=== PATIENT | female | born 1945 | race Caucasian/White ===

== ENCOUNTER 2017-11-26 14:00 | Outpatient (RCR) | payer MEDICARE, SELFPAY ==
--- NOTE | 2017-10-24 09:35 | HP.OTEVAL ---
Patient's Visit Information MICHAEL HUFF is a 71 year old F, referred to Occupational Therapy by Severiano Kumar DR.[facility], with a diagnosis of right hand swelling right hand pain. Date of Evaluation: 10/24/17 Occupational Therapist: LEATHA Valadez/Jacinta, CHT - Subjective Subjective: Pt states about three weeks ago pt fell out of her untapt car. She presents with a right swelling and pain in her right dom. hand. Pt reports she is unable to perform dressing and bathing tasks. Pt went to the doctor yesterday 10-23-16 because she felt it would get better- has dx with right hand swelling and right hand pain. order indicated eval-tx and motion program, edema control, modalities as indicateed. strengthening when tolerated. pt states she has been using ice two times a day. - Pain right hand 8 Pain Intensity Range: 8, 9 - ROM Shoulder: Right/Left WFL Elbow: Right/Left WFL Forearm: Right/left WNL Wrist: Right 20/30 left 35/60 - Strength Locomotive Engineer Electric: right NT left 25# - Edema Wrist: right 19cm left 17cm Other: MCP right 20.5cm left 19cm - Sensation Sensation Comments: pt reports pins and needle sensation - In-Hand Manipulation Finger to Palm Translation: Unable - Right, Normal - Left Palm to Finger Translation: Unable - Right, Normal - Left Shift: Unable - Right, Normal - Left Rotation: Unable - Right, Normal - Left - Hand/Wrist Evaluation Total Score of Pain & Functional Sections: 88 - Goals Goal:: pt will demo a 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 Goal:: pt will report a reduction in pins and needle sensation by D/c - Rehabilitation General Assessment: pt demo need for skilled OT service to decrease edema and pain in right hand to return pt to PLOF with performance of BADLS and IADLS. Rehabilitation Potential: Good - Anticipated Interventions Anticipated Interventions: A/AAROM/PROM, Edema Control, Triggerpoint Release, Modalities, Joint Protection/Energy Conservation, Fine Motor Coord/Chadd - Visit Plan Frequency: 2-3x /Week Duration: 6 Weeks TEXT: Thank you for the opportunity to evaluate your patient. For Medicare and Medicare HMO plans, please review the plan of care and approve it. It will need to be FAXED BACK to us at [phone] for Medicare purposes. Please let me know if there are questions or concerns regarding this plan of care. Physician Signature: Date:
--- NOTE | 2017-11-26 14:41 | HP.OTDCSUM_ITS ---
HP - OT D/C Summary It has been my pleasure to treat MICHAEL HUFF under orders from Severiano Kumar DR[facility] for the diagnosis of right hand swelling right hand pain for a total of 4 visit(s). Please see the following information for a summary of their discharge status. - Overall Improvement % Improvement: 95 - Objective Objective/Function: right MCP flex 50. right PIP 75. right wrist 19.5cm. right MCP 20.0cm. pt demo with decrease in swelling and a increase in ROM - pt reports ind. with BADLS and IADLS - Goals Patient Goals: Regain Mobility, Regain Strength, Decrease Pain, Decrease Swelling/Stiffness, Improve Fine Motor Skills, Use Hand/Wrist/Arm Normally Again , Sleep Better, Decrease Tingling/Numbness Goal:: pt will demo a increase in right parking cashier to 20# or greater to return pt to PLOF with BADLS and IADLS Goal:: Pt will demo a increase in the ability to form a composite fist to retun to PLOF with bathing dressing and meal prep by d/c Goal:: pt will report pain no greater than 2/10 with use of right hand for BADLS and IADLS by D/C Goal:: Pt will demo the ability to write name legibly by d/c Goal:: pt will demo a decrease in right hand edema by 20% by D/C to return pt to PLOF with bathing, dressing and meal prep tasks. Goal:: pt will report a reduction in pins and needle sensation by D/c - Plan Plan: D/C - D/C Information Discharge Comments: pt was seen for 4 visits- pt was ed on edema control and AROM - today pt demo with a increase grasp ability and increase use of her right hand for daily occupations. pt report no pain and ind with bathing and dressing tasks. pt reports she has no difficutly getting in or out of the car. pt reports 95% improvement. pt has met functional goals in OT and is D/C at this time. If there are questions or concerns regarding this patient's occupational therapy , please fell free to call me at [phone]. Thank you for the referral of this patient. Sincerely, Sussy Burks, OTR/L, CHT
== END 2017-11-26 19:00 | disposition home or self-care (01) ==
LOC: OT 14:00
PROVIDERS: Family Provider Internal Medicine; PCP Internal Medicine; Visit Provider Orthopaedic Surgery
DX: M79.89 Other specified soft tissue disorders (principal); M79.641 Pain in right hand
CPT/HCPCS: 97035; 97110; 97140; 97166; 97530

== ENCOUNTER 2017-11-27 05:53 | Inpatient (IN) | payer MEDICARE, SELFPAY ==
[2017-11-27] VITALS (31 sets, daily range): BP systolic 101–187; BP diastolic 36–102; PULSE 73–162; RESP 12–30; TEMP 36.4–38.3; O2SAT 83–100; BMI 37.3; BMI 35.8; BMI 35.7
--- NOTE | 2017-11-27 06:08 | RAD_ITS ---
STUDY: X-RAY CHEST REASON FOR EXAM: Female, 72 years old. Shortness of breath and fever TECHNIQUE: Single AP portable view of the chest. COMPARISON: 07/24/2017 FINDINGS: There are superimposed monitor leads. There is increase of airspace disease in the left lung obscuring the mid and lower lung parenchyma, diaphragm and costophrenic angle with fluid tracking along the right lower to upper chest will periphery. There is improved aeration in the right lung since previous examination, hazy opacification in the left lung. There is no right pleural effusion Obscured heart, mediastinum and jose f. Normal visualized pulmonary arteries. Obscured aortic arch and descending thoracic aorta. Obscured thoracic spine. Normal visualized ribs, clavicles, and shoulders. There is no demonstrated abnormality of the visualized soft tissue structures of the upper abdomen. RAD/Chest 1 View (Portable) IMPRESSION: No other recurrent airspace disease in the left mid and lower lung parenchyma likely pneumonia, component of mild to moderate left pleural effusion. Although the heart is mostly obscured, heart appears to be borderline in size possibly mildly enlarged. Electronically Signed: Selina Pickard MD at 6:52 EST , Service support ,
--- NOTE | 2017-11-27 06:09 | EKG12_ITS ---
Test Reason : RVR, CP Blood Pressure : / mmHG Vent. Rate : 130 BPM Atrial Rate : 227 BPM P-R Int : 000 ms QRS Dur : 082 ms QT Int : 342 ms P-R-T Axes : 000 037 050 degrees QTc Int : 503 ms Atrial fibrillation Abnormal ECG When compared with ECG of 27-NOV-2017 05:49, MANUAL COMPARISON REQUIRED, DATA IS UNCONFIRMED Confirmed by RHIANNON MARKHAM ([id number]), subeditor HONORIO SHEFFIELD ([id number]) on 12/02/2017 1:56:29 PM Referred By: Severiano Kumar Confirmed By:RHIANNON MARKHAM
[2017-11-27] MEDS: Ipratropium/Albuterol Sulfate 3 ML AMPUL.NEB INHALATION ×2 (06:22→11:03)
[2017-11-27 06:34] LABS: Absolute Lymphocyte Count 0.75 X10^3/ul (0.83-4.51); Absolute Neutrophil Count 9.8 X10^3/uL (2.0-7.7); Basophil# 0.01 X10^3/uL; Basophil% 0.1 % (0-1); Eosinophil# 0.13 X10^3/uL; Eosinophils% 1.1 % (0-5); Hematocrit 27.2 % (37-47); Hemoglobin 8.2 g/dl (12.0-15.0); Lymphocyte # 0.75 X10^3/ul (4.0); Lymphocyte % 6.5 % (19-41); Mean Corp Hgb Conc 30.1 g/gl (32-36); Mean Corpuscular Hgb 29.4 pg (27.0-32.0); Mean Corpuscular Volume 97.5 fL (81-99); Mean Platelet Vol. 9.7 fl (6.2-12.0); Monocyte# 0.89 X10^3/uL; Monocyte% 7.7 % (0-10); Neutrophil % 84.3 % (47-70); Platelet Count 253 K/mm3 (150-450); RBC Distribution Width CV 15.3 % (11.6-14.6); RBC Distribution Width SD 51.8 fl (35.1-43.9); Red Blood Count 2.79 M/mm3 (4.2-5.4); White Blood Count 11.6 K/mm3 (4.4-11.0)
[2017-11-27] MEDS: Acetaminophen 325 MG Tablet 650 MG PO (06:34)
[2017-11-27 06:36] LABS: POSITIVE COUNT NO; POSITIVE DIFFERENTIAL NO; POSITIVE MORPHOLOGY NO
[2017-11-27 06:44] LABS: Mucous, Urine 0 SEEN /hpf (<or=2+); Red Blood Cells-Urine 0 SEEN /hpf (0-5)
[2017-11-27 06:46] LABS: Color, Urine Yellow (Yellow); Glucose, Dipstick Normal (Normal); Ketone-Dipstick Negative (Negative); Leukocyte Esterase-Dipstick 500 /ul (Negative); Nitrite-Dipstick Positive (Negative); Occult Blood-Urine 10 /ul (Negative); Protein-Dipstick 30 mg/dl (Negative); Urine Bilirubin Dipstick Negative (Negative); Urine Clarity Turbid (Clear); Urine Urobilinogen Normal (Normal)
[2017-11-27 06:48] LABS: Lactic Acid 1.4 mmol/L (0.4-2.0)
[2017-11-27 06:49] LABS: Anion Gap 7 (5-15); BUN 61 mg/dL (7-18); BUN/Creat Ratio 31.8 RATIO (10-20); Calcium,Total 8.7 mg/dL (8.5-10.1); Chloride 99 mmol/L (98-107); Creatinine, Serum 1.92 mg/dL (0.55-1.02); EST Glomerular Filtration Rate 27 mL/min (>60); Est Glom Filt Rate - Afr Amer 33 mL/min (>60); Estimated Creatinine Clearance 24.53 ml/min; Glucose 146 mg/dL (74-106); Potassium 5.5 mmol/L (3.5-5.1); Sodium Level 138 mmol/L (136-145)
[2017-11-27 06:56] LABS: Bacteria 3+ /hpf (None Seen); Squamous Epithelial Cells - UA 0-5 SEEN /hpf (5-10); White Blood Cells 50-100 SEEN /hpf (0-5)
[2017-11-27] MEDS: Sodium Polystyrene Sulfonate 15 GM/60 ML UDC 30 GM PO (07:22)
--- NOTE | 2017-11-27 07:23 | ED.VISSUMM ---
- ER Visit Summary Date of Service: 11/27/17 Chief Complaint: [] Presents with dyspnea and cough History of Present Illness: The patient is a 72 F [place] cough for 3 days. Gradual onset continuous. She has had a fever subjective chest pain for last 3 days that is sharp and aching on the left side. She is on home oxygen. She did get a flu shot. Her last ejection fraction was 70%. She was intubated in July secondary to respiratory failure. She has chronic kidney disease and anemia. Physical Examination: Vital signs reviewed temperature 100.9. General: Well-nourished well-developed Head: Normocephalic atraumatic Eyes: Pupils equal round and reactive to light extraocular movements intact ENT: TMs clear no hemotympanum no trauma Neck: Nontender full range of motion Cardiovascular: Regular rate rhythm no murmurs normal S1-S2 Respiratory: No distress but speaking in full sentences on nasal cannula clear to auscultation bilaterally chest nontender Abdomen: Soft nontender nondistended normal bowel sounds no masses Back: Nontender no CVA tenderness Extremities: Nontender active range of motion ?4 extremities no trauma Skin: Normal color no trauma Neuro alert oriented cranial nerves II through XII intact normal strength sensation reflexes Test Results: [] Emergency Department Course and Treatment: [] EKG shows sinus at 103. No acute ischemia. Chest x-ray shows an infiltrate left-sided with pleural effusion. CBC is normal except white count 11.6. Hemoglobin is chronically low at 8.2. Chemistries normal except potassium 5.5. No EKG changes. Creatinine is 1.9 which is chronic. Urine analysis shows 3+ bacteria consistent with infection. Troponin negative. Urine culture pending. Blood culture pending. Lactate 1.4. Patient given oxygen albuterol Atrovent nebulizers with good relief of some of her symptoms. She is given oral Tylenol. She will be started on antibiotics ceftriaxone and azithromycin for community acquired pneumonia. She will be admitted. She remained stable on nasal cannula. Heart rate came down to 90s. I do not feel she needs fluids at this time. She is not in severe sepsis or septic shock. She also has a complicated urinary tract infection. She is given a dose of Kayexalate for her hyperkalemia without EKG changes. Treatment Plan: [] Disposition: [] Impression: [] Community acquired pneumonia Complicated urinary tract infection Chronic anemia Chronic renal insufficiency Hyperkalemia without EKG changes This note was generated with [employer] dictation software. It may contain incorrect words, spelling, and punctuation that were not noted in review of the chart prior to signing ED Disposition - Plan for ED Patient: Chief Complaint: Shortness of Breath Referrals: Mat Duffy MD [Primary Care Provider] -
[2017-11-27] MEDS: Ceftriaxone 1 GM/50 ML BAG IV (07:53)
--- NOTE | 2017-11-27 09:00 | US_ITS ---
STUDY: SUPERFICIAL ULTRASOUND - ASSESSMENT OF PLEURAL FLUID. REASON FOR EXAM: Female, 72 years old. Possible thoracentesis. TECHNIQUE: A superficial ultrasound was performed with real-time and static hui-scale imaging. COMPARISON: None. FINDINGS: Both right and left pleural spaces were examined by ultrasound. No effusion is seen. US/Chest IMPRESSION: No pleural effusion is seen. Electronically Signed: Brett Arcos MD at 15:18 EST Tel [phone], Service support ,
--- NOTE | 2017-11-27 09:04 | PCM.HP.STD ---
Problem List (1) HTN (hypertension) Status: Chronic Qualifiers: (2) CREST variant of scleroderma Status: Chronic (3) Peripheral arterial occlusive disease Status: Chronic (4) S/P craniotomy Status: Chronic Comment: For intracerebral hemorrhage (5) CKD (chronic kidney disease) stage 3, GFR 30-59 ml/min Status: Chronic (6) Obstructive sleep apnea Status: Chronic Comment: Untreated (7) Type 2 diabetes mellitus Status: Chronic Qualifiers: (8) History of cerebral hemorrhage Status: Chronic (9) Anemia Status: Chronic Qualifiers: (10) Hyperlipidemia Status: Chronic Qualifiers: History of Present Illness Date of Admission: 11/27/17 Chief Complaint: Chest pain. The patient is a 72 year old F with past medical history as mentioned above presented to the medicine because of chest pain. Her symptoms started 3-4 days ago with left-sided chest pain, sharp pain, 7 out of 10 in severity, extends to the left lateral chest, aggravated by coughing or taking a deep breath, associated with minimal shortness of breath and minimal cough and without relieving factors. The pain has been constant. She does have a chronic respiratory failure and she has been on oxygen at home at 3.5 L and she reported no significant worsening of her shortness of breath. She did complain of cough with minimal sputum production. She denies fever or chills. She denies sore throat, sinus or nasal congestion. She denied dizziness, lightheadedness, nausea, vomiting, sweating, syncope or presyncope. In the emergency room, patient was dyspneic and tachypneic, requiring up to 5 L of oxygen. She was afebrile, blood pressure elevated, heart rate stable. Her routine blood work is remarkable for mild leukocytosis, chronic anemia with hemoglobin of 8.2, potassium of 5.5 and creatinine of 1.92 which is also chronic. Lactic acid was normal. Troponin was negative. Urine analysis revealed turbid urine, positive for nitrite and leukocyte esterase, there was 50-100 WBCs and 3+ bacteria. EKG revealed sinus tachycardia, normal NM interval, normal QRS, no acute ischemic changes or cardiac arrhythmias. Chest x-ray showed left side pleural effusion with possible underlying infiltrate or consolidation. She is being admitted for left side pleural effusion, suspected community-acquired pneumonia, acute on chronic hypoxic respiratory failure, mild hyperkalemia and acute cystitis. Shortly after admission to the floor, patient developed new onset A. fib with RVR. Past Medical History Past Medical History (Chronic Problems): Chronic Problems (Last Updated 11/27/17 @ 08:28 by Fahad Sesay MD) HTN (hypertension) (Chronic) 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) S/P craniotomy (Chronic) For intracerebral hemorrhage Obesity (BMI 30.0-34.9) (Chronic) Morbid obesity (Chronic) CKD (chronic kidney disease) stage 3, GFR 30-59 ml/min (Chronic) Obstructive sleep apnea (Chronic) Untreated Type 2 diabetes mellitus (Chronic) History of cerebral hemorrhage (Chronic) Anemia (Chronic) Aortic stenosis, mild (Chronic) Mitral stenosis (Chronic) mild Stroke (Chronic) Hyperlipidemia (Chronic) Vitamin D deficiency (Chronic) Neuropathic pain (Chronic) Allergies No Known Allergies Allergy (Verified 11/27/17 05:53) Home Medications: Ambulatory Orders Medication Instructions Recorded Atorvastatin Calcium [Lipitor] 40 mg PO QHS 11/27/17 Clonidine HCl 0.1 mg PO TID 11/27/17 Ergocalciferol [Vitamin D] 50,000 unit PO QMONTH 11/27/17 Furosemide [Lasix] 60 mg PO DAILY 11/27/17 Gabapentin [Neurontin] 300 mg PO QHS 11/27/17 Insulin Aspart [Novolog Flexpen units SC 11/27/17 ([facility])] Insulin Glargine,Hum.rec.anlog 39 unit SC BID 11/27/17 [Lantus] Iron Polysaccharide Complex 150 mg PO DAILYCM 11/27/17 [Ferrex 150] Metoprolol Succinate [Toprol Xl] 25 mg PO DAILY 11/27/17 Pantoprazole Sodium [Protonix] 40 mg PO DAILY 11/27/17 Surgical History: cholecystectomy, rotator cuff repair, - - Craniotomy. 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 Denies: Chills, Fever Eyes: Denies: Blurred vision, Double vision, Drainage, Redness HEENT: Denies: Difficulty Hearing, Ear Pain, Eye Pain, Nasal Congestion, Sore Throat Cardiovascular: Reports: Chest Pain. Denies: Chest Pressure, Chest Tightness, Edema, Light Headedness, Orthopnea, Palpitations, Paroxysmal Noc. Dyspnea Respiratory: Reports: Cough, Pleuritic Pain, Shortness of Breath. Denies: Hemoptysis, Sputum production, Wheezing Gastrointestinal: Denies: Abdominal Pain, Constipation, Diarrhea, Nausea, Vomiting Genitourinary: Reports: Frequency. Denies: Dysuria, Hematuria Musculoskeletal: Denies: Arm Pain, Back Pain, Foot Pain Skin: Denies: Dryness, Rash Neurological: Denies: Balance problems, Double vision, Change in Speech, Slurred speech, Headaches, Incoordination, Numbness Psychiatric: Denies: Anxiety, Depression Endocrine: Denies: Change in Body Habitus, Polydipsia VTE Information - Inpt Only VTE Present on Admission: No VTE Mechan Device Prophylaxis: None VTE Pharm Prophylaxis ordered?: Yes - Physical Exam General: Alert, Oriented x3, Cooperative, - - She is dyspneic and tachypneic. HEENT: Atraumatic, PERRLA, EOMI Oral: Moist Mucosa, No Gingival or Mucosal Lesions/ Ulcerations Neck: Supple, No JVD, Negative Carotid Bruits, Trachea Midline, Thyroid Normal Size and Texture Lungs: No wheeze, No rales, Diminished, Rhonchi, Short of Breath, - - Markedly decreased breath sounds on the left base with dull percussion noted, scattered rhonchi. Cardiovascular: Regular rate, Regular Rhythm, Normal S1, Normal S2, No murmurs, PMI Normal, Tachycardic Abdomen: Bowel Sounds Present, Soft, Non Tender, Non-Distended, No Hepato-splenomegaly Extremities: No clubbing, No cyanosis, No edema Skin: No rashes, No breakdown Lymphatic: No Cervical, Supraclavicular, or Inguinal Adenopathy Neurological: Cranial nerves II-XII grossly intact, Motor Exam 5/5 strength throughout Psych/Mental Status: Normal Affect, Appropriate, Alert and oriented to time, place, person, mood and affect Vital Signs Temp Pulse Resp BP Pulse Ox 97.5 F L 84 24 H 165/63 H 97 11/27/17 08:15 11/27/17 08:30 11/27/17 08:15 11/27/17 08:15 11/27/17 08:15 Oxygen Flow Rate 5 Oxygen Delivery Method Nasal Cannula Weight: 214 lb 15.211 oz Body Mass Index (BMI) 35.7 Microbiology 11/27/17 06:19 Influenza Types A,B Direct FA (BRYCE) - Final Mucosa - Nose Laboratory Tests 11/27/17 11/27/17 11/27/17 Range/Units 06:40 06:05 06:05 WBC (4.4-11.0) K/mm3 RBC (4.2-5.4) M/mm3 Hgb (12.0-15.0) g/dl Hct (37-47) % MCV (81-99) fL MCH (27.0-32.0) pg MCHC (32-36) g/gl RDW (11.6-14.6) % RDW Differential (35.1-43.9) fl Plt Count (150-450) K/mm3 MPV (6.2-12.0) fl Immature Gran % (Auto) (0.0-0.9) % Neut % (Auto) (47-70) % Lymph % (Auto) (19-41) % [place] % (Auto) (0-10) % Eos % (Auto) (0-5) % Baso % (Auto) (0-1) % Absolute Neuts (auto) (2.0-7.7) X10^3/uL Absolute Lymphs (auto) (0.83-4.51) X10^3/ul Total Counted Sodium 138 (136-145) mmol/L Potassium 5.5 H (3.5-5.1) mmol/L Chloride 99 (98-107) mmol/L Carbon Dioxide 32.0 (21.0-32.0) mmol/L Anion Gap 7 (5-15) BUN 61 H (7-18) mg/dL Creatinine 1.92 H (0.55-1.02) mg/dL Estim Creat Clear Calc 24.53 ml/min Est GFR (MDRD) Af Amer 33 L (>60) mL/min Est GFR (MDRD) Non-Af 27 L (>60) mL/min BUN/Creatinine Ratio 31.8 H (10-20) RATIO Glucose 146 H (74-106) mg/dL Lactic Acid 1.4 (0.4-2.0) mmol/L Calcium 8.7 (8.5-10.1) mg/dL Troponin I < 0.02 (<0.06) ng/mL Urine Color Yellow (Yellow) Urine Clarity Turbid (Clear) Urine pH 5.0 (5.0 - 8.0) Ur Specific [place] 1.020 (1.002-1.030) Urine Protein 30 H (Negative) mg/dl Urine Glucose (UA) Normal (Normal) mg/dl Urine Ketones Negative (Negative) mg/dl Urine Occult Blood 10 H (Negative) /ul Urine Nitrite Positive H (Negative) Urine Bilirubin Negative (Negative) mg/dL Urine Urobilinogen Normal (Normal) mg/dl Ur Leukocyte Esterase 500 H (Negative) /ul Urine RBC 0 SEEN (0-5) /hpf Urine WBC 50-100 SEEN (0-5) /hpf Ur Squamous Epith Cells 0-5 SEEN (5-10) /hpf Urine Bacteria 3+ (None Seen) /hpf Urine Mucus 0 SEEN (<or=2+) /hpf 11/27/17 Range/Units 06:05 WBC 11.6 H (4.4-11.0) K/mm3 RBC 2.79 L (4.2-5.4) M/mm3 Hgb 8.2 L (12.0-15.0) g/dl Hct 27.2 L (37-47) % MCV 97.5 (81-99) fL MCH 29.4 (27.0-32.0) pg MCHC 30.1 L (32-36) g/gl RDW 15.3 H (11.6-14.6) % RDW Differential 51.8 H (35.1-43.9) fl Plt Count 253 (150-450) K/mm3 MPV 9.7 (6.2-12.0) fl Immature Gran % (Auto) 0.300 (0.0-0.9) % Neut % (Auto) 84.3 H (47-70) % Lymph % (Auto) 6.5 L (19-41) % [place] % (Auto) 7.7 (0-10) % Eos % (Auto) 1.1 (0-5) % Baso % (Auto) 0.1 (0-1) % Absolute Neuts (auto) 9.8 H (2.0-7.7) X10^3/uL Absolute Lymphs (auto) 0.75 L (0.83-4.51) X10^3/ul Total Counted Not Reportable Sodium (136-145) mmol/L Potassium (3.5-5.1) mmol/L Chloride (98-107) mmol/L Carbon Dioxide (21.0-32.0) mmol/L Anion Gap (5-15) BUN (7-18) mg/dL Creatinine (0.55-1.02) mg/dL Estim Creat Clear Calc ml/min Est GFR (MDRD) Af Amer (>60) mL/min Est GFR (MDRD) Non-Af (>60) mL/min BUN/Creatinine Ratio (10-20) RATIO Glucose (74-106) mg/dL Lactic Acid (0.4-2.0) mmol/L Calcium (8.5-10.1) mg/dL Troponin I (<0.06) ng/mL Urine Color (Yellow) Urine Clarity (Clear) Urine pH (5.0 - 8.0) Ur Specific [place] (1.002-1.030) Urine Protein (Negative) mg/dl Urine Glucose (UA) (Normal) mg/dl Urine Ketones (Negative) mg/dl Urine Occult Blood (Negative) /ul Urine Nitrite (Negative) Urine Bilirubin (Negative) mg/dL Urine Urobilinogen (Normal) mg/dl Ur Leukocyte Esterase (Negative) /ul Urine RBC (0-5) /hpf Urine WBC (0-5) /hpf Ur Squamous Epith Cells (5-10) /hpf Urine Bacteria (None Seen) /hpf Urine Mucus (<or=2+) /hpf Clinical Impression(s) from Imaging Studies Chest X-Ray 11/27/17 06:08 IMPRESSION: No other recurrent airspace disease in the left mid and lower lung parenchyma likely pneumonia, component of mild to moderate left pleural effusion. Although the heart is mostly obscured, heart appears to be borderline in size possibly mildly enlarged. Electronically Signed: Selnia Pickard MD at 6:52 EST , Service support , Assessment/Plan This is a 72 years old female patient presented to the medicine because of left-sided pleuritic chest pain, found to have left-sided pleural effusion, suspected community-acquired pneumonia, hyperkalemia, acute cystitis, acute on chronic hypoxic respiratory failure and shortly after admission, she developed A. fib with RVR. #1 suspected left lung community-acquired pneumonia: Reviewed, revealed left pleural effusion with underlying questionable infiltrate. She denied significant cough or sputum production. No fever or chills. She has mild leukocytosis. She had a history of pneumonia back in July,. Her lactic acid is normal. Patient complained of chest pain which seemed to be pleuritic. EKG revealed normal sinus rhythm without acute ischemic changes. Plan: Admit to PCU, cardiac monitoring, serial cardiac enzymes, blood culture, urine culture, sputum culture, pneumococcal and Legionella antigen, start IV Levaquin and Zosyn, bronchodilators, pulmonary consult, PT OT evaluation and treatment. #2 left pleural effusion: She does have a history of left pleural effusion on the previous chest x-ray but looks larger in size. Differential diagnosis could be due to parapneumonic effusion versus CHF. Plan: Diagnostic antiemetic thoracentesis, pleural fluid analysis for cell with differential, cytology, culture, pleural fluid and glucose, protein, LDH, pulmonary consult as above. #3 acute on chronic hypoxic respiratory failure: Patient has been on oxygen since July, for chronic respiratory failure. She never smoked but she does have a history of obstructive sleep apnea. At this time, she is dyspneic and tachypneic and requiring up to 5 L of oxygen. Plan as above, thoracentesis, IV antibiotics, wean off oxygen as tolerated. #4 acute cystitis: Urinalysis reviewed. Plan for urine culture, IV Zosyn and Levaquin as above. #5 new onset A. fib with RVR: This is a new onset, new diagnosis. Heart rate has been in 130s, blood pressure stable. Patient received 1 dose of IV metoprolol, rate still fast. Plan: We will give another dose of IV metoprolol, 2D echocardiogram, check serum magnesium, TSH, cardiology consult, 2D echocardiogram. #6 mild hyperkalemia: Unclear etiology, could be related to chronic kidney disease. Potassium is 5.5. EKG showed no acute changes. She received 1 dose of Kayexalate in the ER. Plan for IV fluids, repeat potassium later today, repeat BMP tomorrow morning. #7 stage III chronic kidney disease: Creatinine is around 1.4-2 mg/dL. Admission creatinine is 1.92, stable at baseline. #8 type 2 diabetes mellitus: ADA diet, Accu-Cheks, insulin sliding scale, continue home doses of Levemir insulin twice daily. #9 hypertension: Blood pressure stable, continue clonidine and metoprolol. #10 DVT prophylaxis: Subcu heparin. Other chronic medical problems: #1 chronic anemia. #2 Crest variant of scleroderma. #3 peripheral vascular disease. #4 obstructive sleep apnea. #5 history of stroke. #6 morbid obesity. #7 history of cerebral bleed status post craniectomy. This note was generated with [employer] dictation software. It may contain incorrect words, spelling, and punctuation that were not noted in checking the note before signing. Code Visit Inpatient E&M: 02442 Init Hosp L3
--- NOTE | 2017-11-27 09:11 | HP.PCM_ITS ---
Problem List (1) HTN (hypertension) Status: Chronic Qualifiers: (2) CREST variant of scleroderma Status: Chronic (3) Peripheral arterial occlusive disease Status: Chronic (4) S/P craniotomy Status: Chronic Comment: For intracerebral hemorrhage (5) CKD (chronic kidney disease) stage 3, GFR 30-59 ml/min Status: Chronic (6) Obstructive sleep apnea Status: Chronic Comment: Untreated (7) Type 2 diabetes mellitus Status: Chronic Qualifiers: (8) History of cerebral hemorrhage Status: Chronic (9) Anemia Status: Chronic Qualifiers: (10) Hyperlipidemia Status: Chronic Qualifiers: History of Present Illness Date of Admission: 11/27/17 Chief Complaint: Chest pain. The patient is a 72 year old F with past medical history as mentioned above presented to the medicine because of chest pain. Her symptoms started 3-4 days ago with left-sided chest pain, sharp pain, 7 out of 10 in severity, extends to the left lateral chest, aggravated by coughing or taking a deep breath, associated with minimal shortness of breath and minimal cough and without relieving factors. The pain has been constant. She does have a chronic respiratory failure and she has been on oxygen at home at 3.5 L and she reported no significant worsening of her shortness of breath. She did complain of cough with minimal sputum production. She denies fever or chills. She denies sore throat, sinus or nasal congestion. She denied dizziness, lightheadedness, nausea, vomiting, sweating, syncope or presyncope. In the emergency room, patient was dyspneic and tachypneic, requiring up to 5 L of oxygen. She was afebrile, blood pressure elevated, heart rate stable. Her routine blood work is remarkable for mild leukocytosis, chronic anemia with hemoglobin of 8.2, potassium of 5.5 and creatinine of 1.92 which is also chronic. Lactic acid was normal. Troponin was negative. Urine analysis revealed turbid urine, positive for nitrite and leukocyte esterase, there was 50 -100 WBCs and 3+ bacteria. EKG revealed sinus tachycardia, normal FL interval, normal QRS, no acute ischemic changes or cardiac arrhythmias. Chest x-ray showed left side pleural effusion with possible underlying infiltrate or consolidation. She is being admitted for left side pleural effusion, suspected community-acquired pneumonia, acute on chronic hypoxic respiratory failure, mild hyperkalemia and acute cystitis. Shortly after admission to the floor, patient developed new onset A. fib with RVR. Past Medical History Past Medical History (Chronic Problems): Chronic Problems (Last Updated 11/27/17 @ 08:28 by Fahad Sesay MD) HTN (hypertension) (Chronic) 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) S/P craniotomy (Chronic) For intracerebral hemorrhage Obesity (BMI 30.0-34.9) (Chronic) Morbid obesity (Chronic) CKD (chronic kidney disease) stage 3, GFR 30-59 ml/min (Chronic) Obstructive sleep apnea (Chronic) Untreated Type 2 diabetes mellitus (Chronic) History of cerebral hemorrhage (Chronic) Anemia (Chronic) Aortic stenosis, mild (Chronic) Mitral stenosis (Chronic) mild Stroke (Chronic) Hyperlipidemia (Chronic) Vitamin D deficiency (Chronic) Neuropathic pain (Chronic) Allergies No Known Allergies Allergy (Verified 11/27/17 05:53) Home Medications: Ambulatory Orders Medication Instructions Recorded Atorvastatin Calcium [Lipitor] 40 mg PO QHS 11/27/17 Clonidine HCl 0.1 mg PO TID 11/27/17 Ergocalciferol [Vitamin D] 50,000 unit PO QMONTH 11/27/17 Furosemide [Lasix] 60 mg PO DAILY 11/27/17 Gabapentin [Neurontin] 300 mg PO QHS 11/27/17 Insulin Aspart [Novolog Flexpen units SC 11/27/17 ([facility])] Insulin Glargine,Hum.rec.anlog 39 unit SC BID 11/27/17 [Lantus] Iron Polysaccharide Complex 150 mg PO DAILYCM 11/27/17 [Ferrex 150] Metoprolol Succinate [Toprol Xl] 25 mg PO DAILY 11/27/17 Pantoprazole Sodium [Protonix] 40 mg PO DAILY 11/27/17 Surgical History: cholecystectomy, rotator cuff repair, - - Craniotomy. 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 Denies: Chills, Fever Eyes: Denies: Blurred vision, Double vision, Drainage, Redness HEENT: Denies: Difficulty Hearing, Ear Pain, Eye Pain, Nasal Congestion, Sore Throat Cardiovascular: Reports: Chest Pain. Denies: Chest Pressure, Chest Tightness, Edema, Light Headedness, Orthopnea, Palpitations, Paroxysmal Noc. Dyspnea Respiratory: Reports: Cough, Pleuritic Pain, Shortness of Breath. Denies: Hemoptysis, Sputum production, Wheezing Gastrointestinal: Denies: Abdominal Pain, Constipation, Diarrhea, Nausea, Vomiting Genitourinary: Reports: Frequency. Denies: Dysuria, Hematuria Musculoskeletal: Denies: Arm Pain, Back Pain, Foot Pain Skin: Denies: Dryness, Rash Neurological: Denies: Balance problems, Double vision, Change in Speech, Slurred speech, Headaches, Incoordination, Numbness Psychiatric: Denies: Anxiety, Depression Endocrine: Denies: Change in Body Habitus, Polydipsia VTE Information - Inpt Only VTE Present on Admission: No VTE Mechan Device Prophylaxis: None VTE Pharm Prophylaxis ordered?: Yes - Physical Exam General: Alert, Oriented x3, Cooperative, - - She is dyspneic and tachypneic. HEENT: Atraumatic, PERRLA, EOMI Oral: Moist Mucosa, No Gingival or Mucosal Lesions/ Ulcerations Neck: Supple, No JVD, Negative Carotid Bruits, Trachea Midline, Thyroid Normal Size and Texture Lungs: No wheeze, No rales, Diminished, Rhonchi, Short of Breath, - - Markedly decreased breath sounds on the left base with dull percussion noted, scattered rhonchi. Cardiovascular: Regular rate, Regular Rhythm, Normal S1, Normal S2, No murmurs, PMI Normal, Tachycardic Abdomen: Bowel Sounds Present, Soft, Non Tender, Non-Distended, No Hepato- splenomegaly Extremities: No clubbing, No cyanosis, No edema Skin: No rashes, No breakdown Lymphatic: No Cervical, Supraclavicular, or Inguinal Adenopathy Neurological: Cranial nerves II-XII grossly intact, Motor Exam 5/5 strength throughout Psych/Mental Status: Normal Affect, Appropriate, Alert and oriented to time, place, person, mood and affect Vital Signs Temp Pulse Resp BP Pulse Ox 97.5 F L 84 24 H 165/63 H 97 11/27/17 08:15 11/27/17 08:30 11/27/17 08:15 11/27/17 08:15 11/27/17 08:15 Oxygen Flow Rate 5 Oxygen Delivery Method Nasal Cannula Weight: 214 lb 15.211 oz Body Mass Index (BMI) 35.7 Microbiology 11/27/17 06:19 Influenza Types A,B Direct FA (BRYCE) - Final Mucosa - Nose Laboratory Tests 3 11/27/17 11/27/17 11/27/17 Range/Units 06:40 06:05 06:05 WBC (4.4-11.0) K/mm3 RBC (4.2-5.4) M/mm3 Hgb (12.0-15.0) g/dl Hct (37-47) % MCV (81-99) fL MCH (27.0-32.0) pg MCHC (32-36) g/gl RDW (11.6-14.6) % RDW Differential (35.1-43.9) fl Plt Count (150-450) K/mm3 MPV (6.2-12.0) fl Immature Gran % (Auto) (0.0-0.9) % Neut % (Auto) (47-70) % Lymph % (Auto) (19-41) % Wilcox % (Auto) (0-10) % Eos % (Auto) (0-5) % Baso % (Auto) (0-1) % Absolute Neuts (auto) (2.0-7.7) X10^3/uL Absolute Lymphs (auto) (0.83-4.51) X10^3/ul Total Counted Sodium 138 (136-145) mmol/L Potassium 5.5 H (3.5-5.1) mmol/L Chloride 99 (98-107) mmol/L Carbon Dioxide 32.0 (21.0-32.0) mmol/L Anion Gap 7 (5-15) BUN 61 H (7-18) mg/dL Creatinine 1.92 H (0.55-1.02) mg/dL Estim Creat Clear Calc 24.53 ml/min Est GFR (MDRD) Af Amer 33 L (>60) mL/min Est GFR (MDRD) Non-Af 27 L (>60) mL/min BUN/Creatinine Ratio 31.8 H (10-20) RATIO Glucose 146 H (74-106) mg/dL Lactic Acid 1.4 (0.4-2.0) mmol/L Calcium 8.7 (8.5-10.1) mg/dL Troponin I < 0.02 (<0.06) ng/mL Urine Color Yellow (Yellow) Urine Clarity Turbid (Clear) Urine pH 5.0 (5.0 - 8.0) Ur Specific Barre 1.020 (1.002-1.030) Urine Protein 30 H (Negative) mg/dl Urine Glucose (UA) Normal (Normal) mg/dl Urine Ketones Negative (Negative) mg/dl Urine Occult Blood 10 H (Negative) /ul Urine Nitrite Positive H (Negative) Urine Bilirubin Negative (Negative) mg/dL Urine Urobilinogen Normal (Normal) mg/dl Ur Leukocyte Esterase 500 H (Negative) /ul Urine RBC 0 SEEN (0-5) /hpf Urine WBC 50-100 SEEN (0-5) /hpf Ur Squamous Epith Cells 0-5 SEEN (5-10) /hpf Urine Bacteria 3+ (None Seen) /hpf Urine Mucus 0 SEEN (<or=2+) /hpf 3 11/27/17 Range/Units 06:05 WBC 11.6 H (4.4-11.0) K/mm3 RBC 2.79 L (4.2-5.4) M/mm3 Hgb 8.2 L (12.0-15.0) g/dl Hct 27.2 L (37-47) % MCV 97.5 (81-99) fL MCH 29.4 (27.0-32.0) pg MCHC 30.1 L (32-36) g/gl RDW 15.3 H (11.6-14.6) % RDW Differential 51.8 H (35.1-43.9) fl Plt Count 253 (150-450) K/mm3 MPV 9.7 (6.2-12.0) fl Immature Gran % (Auto) 0.300 (0.0-0.9) % Neut % (Auto) 84.3 H (47-70) % Lymph % (Auto) 6.5 L (19-41) % Wilcox % (Auto) 7.7 (0-10) % Eos % (Auto) 1.1 (0-5) % Baso % (Auto) 0.1 (0-1) % Absolute Neuts (auto) 9.8 H (2.0-7.7) X10^3/uL Absolute Lymphs (auto) 0.75 L (0.83-4.51) X10^3/ul Total Counted Not Reportable Sodium (136-145) mmol/L Potassium (3.5-5.1) mmol/L Chloride (98-107) mmol/L Carbon Dioxide (21.0-32.0) mmol/L Anion Gap (5-15) BUN (7-18) mg/dL Creatinine (0.55-1.02) mg/dL Estim Creat Clear Calc ml/min Est GFR (MDRD) Af Amer (>60) mL/min Est GFR (MDRD) Non-Af (>60) mL/min BUN/Creatinine Ratio (10-20) RATIO Glucose (74-106) mg/dL Lactic Acid (0.4-2.0) mmol/L Calcium (8.5-10.1) mg/dL Troponin I (<0.06) ng/mL Urine Color (Yellow) Urine Clarity (Clear) Urine pH (5.0 - 8.0) Ur Specific Barre (1.002-1.030) Urine Protein (Negative) mg/dl Urine Glucose (UA) (Normal) mg/dl Urine Ketones (Negative) mg/dl Urine Occult Blood (Negative) /ul Urine Nitrite (Negative) Urine Bilirubin (Negative) mg/dL Urine Urobilinogen (Normal) mg/dl Ur Leukocyte Esterase (Negative) /ul Urine RBC (0-5) /hpf Urine WBC (0-5) /hpf Ur Squamous Epith Cells (5-10) /hpf Urine Bacteria (None Seen) /hpf Urine Mucus (<or=2+) /hpf Clinical Impression(s) from Imaging Studies Chest X-Ray 11/27/17 06:08 IMPRESSION: No other recurrent airspace disease in the left mid and lower lung parenchyma likely pneumonia, component of mild to moderate left pleural effusion. Although the heart is mostly obscured, heart appears to be borderline in size possibly mildly enlarged. Electronically Signed: Selina Pickard MD at 6:52 EST , Service support , Assessment/Plan This is a 72 years old female patient presented to the medicine because of left- sided pleuritic chest pain, found to have left-sided pleural effusion, suspected community-acquired pneumonia, hyperkalemia, acute cystitis, acute on chronic hypoxic respiratory failure and shortly after admission, she developed A. fib with RVR. #1 suspected left lung community-acquired pneumonia: Reviewed, revealed left pleural effusion with underlying questionable infiltrate. She denied significant cough or sputum production. No fever or chills. She has mild leukocytosis. She had a history of pneumonia back in July,. Her lactic acid is normal. Patient complained of chest pain which seemed to be pleuritic. EKG revealed normal sinus rhythm without acute ischemic changes. Plan: Admit to PCU, cardiac monitoring, serial cardiac enzymes, blood culture, urine culture, sputum culture, pneumococcal and Legionella antigen, start IV Levaquin and Zosyn, bronchodilators, pulmonary consult, PT OT evaluation and treatment. #2 left pleural effusion: She does have a history of left pleural effusion on the previous chest x-ray but looks larger in size. Differential diagnosis could be due to parapneumonic effusion versus CHF. Plan: Diagnostic antiemetic thoracentesis, pleural fluid analysis for cell with differential, cytology, culture, pleural fluid and glucose, protein, LDH, pulmonary consult as above. #3 acute on chronic hypoxic respiratory failure: Patient has been on oxygen since July, for chronic respiratory failure. She never smoked but she does have a history of obstructive sleep apnea. At this time, she is dyspneic and tachypneic and requiring up to 5 L of oxygen. Plan as above, thoracentesis , IV antibiotics, wean off oxygen as tolerated. #4 acute cystitis: Urinalysis reviewed. Plan for urine culture, IV Zosyn and Levaquin as above. #5 new onset A. fib with RVR: This is a new onset, new diagnosis. Heart rate has been in 130s, blood pressure stable. Patient received 1 dose of IV metoprolol, rate still fast. Plan: We will give another dose of IV metoprolol, 2D echocardiogram, check serum magnesium, TSH, cardiology consult, 2D echocardiogram. #6 mild hyperkalemia: Unclear etiology, could be related to chronic kidney disease. Potassium is 5.5. EKG showed no acute changes. She received 1 dose of Kayexalate in the ER. Plan for IV fluids, repeat potassium later today, repeat BMP tomorrow morning. #7 stage III chronic kidney disease: Creatinine is around 1.4-2 mg/dL. Admission creatinine is 1.92, stable at baseline. #8 type 2 diabetes mellitus: ADA diet, Accu-Cheks, insulin sliding scale, continue home doses of Levemir insulin twice daily. #9 hypertension: Blood pressure stable, continue clonidine and metoprolol. #10 DVT prophylaxis: Subcu heparin. Other chronic medical problems: #1 chronic anemia. #2 Crest variant of scleroderma. #3 peripheral vascular disease. #4 obstructive sleep apnea. #5 history of stroke. #6 morbid obesity. #7 history of cerebral bleed status post craniectomy. This note was generated with [employer] dictation software. It may contain incorrect words, spelling, and punctuation that were not noted in checking the note before signing. Code Visit Inpatient E&M: 23356 Init Hosp L3
[2017-11-27] MEDS: Metoprolol Tartrate 5 MG/5 ML Vial 2.5 MG IV ×2 (09:55→11:08)
[2017-11-27 10:01] LABS: International Normalized Ratio 1.3
[2017-11-27 10:02] LABS: Partial Thromboplast Time 48.9 Seconds (24.1-36.2)
--- NOTE | 2017-11-27 10:58 | ECHOD_ITS ---
Reason For Study: AFIB Procedure This was a 2D Doppler, Color Flow transthoracic echocardiogram. The exam was of fair technical quality due to body habitus. The study was technically difficult. Contrast injection was performed. Exam performed portable in patient room. Left Ventricle Normal LV size. Left ventricular systolic function is normal. The estimated ejection fraction is 65 %. Transmitral diastolic flow velocities suggest moderate (stage 2) diastolic dysfunction (pseudonormal pattern). No regional wall motion abnormalities noted. Right Ventricle Normal RV size. Normal systolic function. Atria The left atrium is moderately enlarged. Normal right atrium. No doppler evidence for ASD. Mitral Valve There is moderate to severe mitral annular calcification. Extension of the mitral annular calcification onto the mitral valve leaflets. Mild focal mitral valve calcification of the anterior leaflet. Mild (1+) mitral valve insufficiency. Tricuspid Valve Normal tricuspid valve. Mild tricuspid valve insufficiency. Right ventricular systolic pressure estimated to be 51 mmHg. Aortic Valve Trisinus/trileaflet aortic valve. Mild focal aortic valve calcification. Mild aortic stenosis. Pulmonic Valve The pulmonic valve is not well visualized. Trivial pulmonic valve insufficiency. Great Vessels Normal sized aortic root. Pericardium/Pleural No pericardial effusion. Medication Diluted definity 2ml given slow IV push to enhance endocardial definition. MMode/2D Measurements & Calculations LVIDd: 4.8 cm IVSd: 0.97 cm LVOT diam: 2.0 cm LVIDs: 3.1 cm LVPWd: 0.89 cm LVOT area: 3.1 cm2 RVDd: 4.1 cm FS: 36.9 % Ao root diam: 2.8 cm LAV(MOD-bp): 68.9 ml EDV(MOD-sp4): 99.4 ml LA dimension: 4.8 cm LAV(MOD-bp) Indexed: 33.8 ml/m2 ESV(MOD-sp4): 49.9 ml LAV(MOD-sp2): 83.0 ml EF(MOD-sp4): 49.8 % LAV(MOD-sp4): 55.6 ml EDV(MOD-sp2): 117.7 ml SV(MOD-sp4): 49.5 ml SV(MOD-sp2): 87.8 ml EF(MOD-sp2): 74.6 % LA A4 area: 20.4 cm2 RA A4 area: 12.4 cm2 Doppler Measurements & Calculations MV E max zen: 151.0 cm/sec MV V2 max: 178.8 cm/sec Ao V2 max: 193.5 cm/sec MV A max zen: 122.4 cm/sec MV max P.8 mmHg Ao max P.0 mmHg MV E/A: 1.2 MV V2 mean: 108.0 cm/sec Ao V2 mean: 145.3 cm/sec MV mean P.3 mmHg Ao mean P.1 mmHg MV V2 VTI: 40.9 cm Ao V2 VTI: 39.7 cm MVA(VTI): 1.8 cm2 SHAQ(I,D): 1.9 cm2 SHAQ(V,D): 1.7 cm2 LV V1 max: 103.4 cm/sec SV(LVOT): 75.3 ml TR max zen: 325.5 cm/sec LV V1 max P.3 mmHg TR max P.6 mmHg LV V1 mean P.5 mmHg LV V1 mean: 75.6 cm/sec LV V1 VTI: 24.0 cm Interpretation Summary The study was technically difficult. Contrast injection was performed. Left ventricular systolic function is normal. The estimated ejection fraction is 65 %. The left atrium is moderately enlarged. There is moderate to severe mitral annular calcification. Extension of the mitral annular calcification onto the mitral valve leaflets. Mild focal mitral valve calcification of the anterior leaflet. Mild (1+) mitral valve insufficiency. Mild tricuspid valve insufficiency. Mild aortic stenosis. Trivial pulmonic valve insufficiency. Right ventricular systolic pressure estimated to be 51 mmHg. Transmitral diastolic flow velocities suggest diastolic dysfunction (pseudonormal pattern). Ordering Physician: Fahad Sesay Referring Physician: OLIVE LARA Performed By: Bianca Green, JANNETTE, RVT
[2017-11-27] MEDS: Pantoprazole Sodium 40 MG Tablet PO (11:07)
[2017-11-27 12:22] LABS: Bedside Glucose 194 mg/dL (70-110)
[2017-11-27 12:30] LABS: Magnesium 2.2 mg/dL (1.6-2.6); Thyroid Stim Hormone (TSH) 0.56 uIU/mL (0.358-3.74)
--- NOTE | 2017-11-27 12:46 | PCM.CONS.GEN ---
Problem List (1) HTN (hypertension) Status: Chronic Qualifiers: (2) CREST variant of scleroderma Status: Chronic (3) Peripheral arterial occlusive disease Status: Chronic (4) S/P craniotomy Status: Chronic Comment: For intracerebral hemorrhage (5) Morbid obesity Status: Chronic (6) CKD (chronic kidney disease) stage 3, GFR 30-59 ml/min Status: Chronic (7) Obstructive sleep apnea Status: Chronic Comment: Untreated (8) Type 2 diabetes mellitus Status: Chronic Qualifiers: (9) History of cerebral hemorrhage Status: Chronic (10) Anemia Status: Chronic Qualifiers: (11) Aortic stenosis, mild Status: Chronic (12) Mitral stenosis Status: Chronic Qualifiers: Cardiac valve disease etiology: etiology unspecified Qualified Code(s): 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 (13) Stroke Status: Chronic Qualifiers: CVA mechanism: unspecified Qualified Code(s): I63.9 - Cerebral infarction, unspecified (14) Hyperlipidemia Status: Chronic Qualifiers: (15) Vitamin D deficiency Status: Chronic (16) Neuropathic pain Status: Chronic Reason for Consult Date of Consultation: 11/27/17 Reason for Consultation: Left pleural effusion, acute on chronic respiratory failure History of Present Illness: The patient is a 72 year old F known to pulmonary [facility], with past medical history as below who presented to the ED on 11/27/17 via EMS for complaints of a 3-4 day history of nausea, chest congestion, shortness of breath, and chest pain. Her chest pain was left-sided and she rated an 8 out of 10 with radiation to her left lateral chest, neck, and jaw. Patient described as a pressure, no relieving factors. Taking a deep breath aggravates the pain. Patient reports persistent nonproductive cough, subjective fevers, and hypoxia at 83% on her home oxygen requirement of 3.5 L. Throat is mildly sore. Patient does report aerosol use secondary to her scleroderma. She has also been having some urinary frequency, dysuria, and nocturia. Patient denies any recent sick contacts or illnesses. No recent steroids or antibiotics. No hemoptysis. Her temperature per EMS was 102.0?F. She was placed on a nonrebreather and given full dose aspirin en-route to the hospital. Initial vital signs BP 176/74, pulse 100, RR 30, 100.9?F orally, and 95% on 5 L of nasal oxygen. Chest x-ray on arrival showed an increase of airspace disease in the left lung obscuring the mid and lower lung parenchyma, diaphragm and costophrenic angle with fluid tracking along the right lower to upper chest wall periphery. Lab work revealed a mild leukocytosis of 11,600, hemoglobin of 8.2 (chronic, stable), normal coags, slightly elevated potassium at 5.5, BUN of 61 and creatinine of 1.92, which is also the patient's baseline. Glucose was 146. Lactate was normal at 1.4. Serum bicarb is 32, patient does have known chronic CO2 retention. Urinalysis indicative of infection, culture sent. Blood cultures were drawn and are pending. Influenza screening was normal. Urine strep/Legionella antigens were negative. The patient was given aerosols, antibiotics, IV Lopressor, Tylenol and Kayexalate in the ED. she was transferred to the CVICU as overflow from PCU since no beds were available. The patient was scheduled for a thoracentesis today and pulmonary was consulted to assist with management of her acute on chronic respiratory failure and suspected community-acquired pneumonia. She is currently requiring 5 L of oxygen supplementation with no significant complaints except dyspnea on exertion which is slightly worse than her normal. Pulmonary function tests in June 2017 showed presence of an irreversible very severe mixed ventilatory defect with a symmetric reduction in diffusing capacity. Pulmonary exercise test showed a 3 L oxygen requirement at rest and 4 L with ambulation. The patient was admitted in July 2017 with acute respiratory failure secondary to heart failure and was mechanically ventilated at that time. She was discharged on Lasix therapy and has been doing fairly well since. Patient had a split-night sleep study in September 2017 which showed an AHI of 51.4 events per hour. She had an EGD and colonoscopy 10/27/[address] Stevenson which showed duodenitis, shallow duodenal ulceration, gastritis, distal esophagitis, and diverticulosis with small sessile rectal polyp. She has not noticed any bleeding in her urine or stool. Past Medical History Past Medical History (Chronic Problems): Chronic Problems (Last Updated 11/27/17 @ 08:28 by Fahad Sesay MD) HTN (hypertension) (Chronic) 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) S/P craniotomy (Chronic) For intracerebral hemorrhage Obesity (BMI 30.0-34.9) (Chronic) Morbid obesity (Chronic) CKD (chronic kidney disease) stage 3, GFR 30-59 ml/min (Chronic) Obstructive sleep apnea (Chronic) Untreated Type 2 diabetes mellitus (Chronic) History of cerebral hemorrhage (Chronic) Anemia (Chronic) Aortic stenosis, mild (Chronic) Mitral stenosis (Chronic) mild Stroke (Chronic) Hyperlipidemia (Chronic) Vitamin D deficiency (Chronic) Neuropathic pain (Chronic) Allergies No Known Allergies Allergy (Verified 11/27/17 05:53) Home Medications: Ambulatory Orders Medication Instructions Recorded Atorvastatin Calcium [Lipitor] 40 mg PO QHS 11/27/17 Clonidine HCl 0.1 mg PO TID 11/27/17 Ergocalciferol [Vitamin D] 50,000 unit PO QMONTH 11/27/17 Furosemide [Lasix] 60 mg PO DAILY 11/27/17 Gabapentin [Neurontin] 300 mg PO QHS 11/27/17 Insulin Aspart [Novolog Flexpen units SC 11/27/17 ([facility])] Insulin Glargine,Hum.rec.anlog 39 unit SC BID 11/27/17 [Lantus] Iron Polysaccharide Complex 150 mg PO DAILYCM 11/27/17 [Ferrex 150] Metoprolol Succinate [Toprol Xl] 25 mg PO DAILY 11/27/17 Pantoprazole Sodium [Protonix] 40 mg PO DAILY 11/27/17 Surgical History: cholecystectomy, rotator cuff repair, - - Craniotomy. Psychiatric History: No pertinent psych hx [employer] History: No pertinent [employer] history Lives: Spouse/ Significant Other Smoking Status: Never smoker Tobacco Use: Non-smoker Alcohol: None Drugs: None - *Family History Maternal History Items: Cancer, Diabetes, Renal Disease Paternal History Items: Diabetes, Heart Disease, Renal Disease Review of Systems Constitutional: Reports: Fever - subjective, Weakness, Fatigue. Denies: Anorexia, Chills, Night Sweats, Weight Change Eyes: Denies: Vision Change HEENT: Reports: Nasal Congestion, Sore Throat. Denies: Difficulty Swallowing, Head Aches, Sinus Congestion Cardiovascular: Reports: Chest Pain - Currently resolved, Chest Tightness, Edema - Bilateral hands, chronic, Orthopnea, Palpitations. Denies: Light Headedness, Paroxysmal Noc. Dyspnea, Syncope Respiratory: Reports: Cough, Pleuritic Pain, Shortness of breath upon exertion, Wheezing. Denies: Hemoptysis, Sputum production Gastrointestinal: Reports: Dyspepsia, Nausea. Denies: Abdominal Pain, Constipation, Diarrhea, Hematemesis, Hematochezia, Melena, Vomiting Genitourinary: Reports: Dysuria, Frequency, Nocturia, Urgency. Denies: Hematuria Gynecological: Denies: Breast symptoms Musculoskeletal: Reports: Muscle pain - Generalized, chronic, Neck Pain - Resolved. Denies: Back Pain Skin: Reports: Dryness, Skin Changes - dryness LEs, discoloration hands. Denies: Wounds Neurological: Reports: Balance problems, - - generalized weakness. Denies: Change in Speech, Confusion, Difficulty swallowing, Focal weakness, Headaches, Numbness, Tingling, Tremor, Seizures Psychiatric: Denies: Anxiety, Depression Endocrine: Denies: Change in Body Habitus, Polydipsia, Polyuria Hematologic/ Lymphatic: Reports: Anemia, Easy Bruising, Hx of blood clot. Denies: Adenopathy, Easy Bleeding Subjective: The patient was seen and examined. She is sitting up in the chair in no acute distress. Her is at the bedside. She denies any current cough, chest pain, palpitations, or shortness of breath. She is not producing any sputum. She does have left-sided chest pain with deep inspiration. Objective: Clinical Impression(s) from Imaging Studies Chest X-Ray 11/27/17 06:08 IMPRESSION: No other recurrent airspace disease in the left mid and lower lung parenchyma likely pneumonia, component of mild to moderate left pleural effusion. Although the heart is mostly obscured, heart appears to be borderline in size possibly mildly enlarged. Electronically Signed: Selina Pickard MD at 6:52 EST , Service support , - Physical Exam General: Alert, Oriented x3, Cooperative, No apparent distress, Well developed, Well nourished, - - No conversational dyspnea HEENT: Atraumatic, Normocephalic Oral: Moist Mucosa, No Gingival or Mucosal Lesions/ Ulcerations Neck: Supple, No Nodes, Trachea Midline Lungs: - - Poor air movement in all lung pitt, some dullness to percussion to posterior left mid and base and symmetrical expansion, no tachypnea, no wheezing or rales Cardiovascular: Regular rate, Regular Rhythm, Normal S1, Normal S2, No murmurs, No rub noted, No Gallop Abdomen: Bowel Sounds Present, Soft, Non Tender, Non-Distended, Obese, Hernia - Umbilical, - - No CVA tenderness Extremities: No clubbing, No cyanosis, Capillary Refill Less than 3 Seconds, No Calf Tenderness, - - Bilateral hands/digits edematous with skin changes, R>L. Skin: No rashes, No breakdown, - - Venous stasis changes noted Musculoskeletal: No Tenderness to Palpation of Joints or Extremities Lymphatic: No Cervical, Supraclavicular, or Inguinal Adenopathy Neurological: Cranial nerves II-XII grossly intact, Neuro grossly intact, Motor Exam 5/5 strength throughout Psych/Mental Status: Alert and oriented to time, place, person, mood and affect Vital Signs Temp Pulse Resp BP Pulse Ox 97.8 F 76 25 H 141/102 H 100 11/27/17 09:00 11/27/17 11:54 11/27/17 11:04 11/27/17 11:08 11/27/17 11:00 Oxygen Flow Rate 5 Oxygen Delivery Method Nasal Cannula Weight: 214 lb 15.211 oz Body Mass Index (BMI) 35.7 Laboratory Tests Past 24 Hrs 11/27/17 11/27/17 11/27/17 09:30 09:30 09:30 PT 16.0 H INR 1.3 APTT 48.9 H Magnesium 2.2 Total Bilirubin Direct Bilirubin AST ALT Alkaline Phosphatase Lactate Dehydrogenase Troponin I 0.04 Total Protein Albumin TSH 0.56 11/27/17 09:30 PT INR APTT Magnesium Total Bilirubin Pending Direct Bilirubin Pending AST Pending ALT Pending Alkaline Phosphatase Pending Lactate Dehydrogenase Pending Troponin I Total Protein Pending Albumin Pending TSH POC Glucose 11/27/17 12:12 POC Glucose 194 H Assessment/Plan RECOMMENDATIONS 1. Wean oxygen supplementation to keep saturations 88-92%. 2. Encourage incentive spirometer 3. Increase activity as tolerated 4. Continue aerosols 5. Continue antibiotics 6. Thoracentesis scheduled for around 1330 today, await fluid for cytology/culture 7. Continue diuresis, beta-stephania 8. Await echocardiogram, cardiology consult IMPRESSIONS 1. Acute on chronic hypoxic respiratory failure/end-stage COPD/pulmonary hypertension secondary to scleroderma/left pleural effusion Patient known in pulmonary clinic. Patient does present with findings consistent with acute hypoxic respiratory failure. Last had pneumonia in July 2017. Serum bicarb shows chronic CO2 retention, current value upper limits of normal. Imaging showing mild to moderate pleural effusion and questionable infiltrate. Does have a history of left-sided pleural effusion but worse on current imaging. Patient also with A. fib RVR on arrival but this has resolved as of 1115, unclear if etiology of fluid accumulation. Mild presenting leukocytosis, no significant cough or sputum production. Lactate normal. No fevers or chills. Infectious workup is pending. Continue antibiotics and plan for thoracentesis today, await cytology and culture studies. Serum protein and LDH were performed. Continue to wean oxygen supplementation to keep saturations greater than 88%. Continue aerosols. We will continue to follow. 2. New onset atrial fibrillation with RVR See #1. Patient had metoprolol 5 mg IV ?1. She spontaneously converted back to a sinus rhythm around 1115 today. She is not anticoagulated but receiving DVT prophylaxis with heparin. Cardiology has been consulted. 3. Acute cystitis Cultures pending. Patient on appropriate antibiotics. No CVA tenderness. Management per hospitalist. 4. Hyperkalemia/CKD/morbid obesity/peripheral artery occlusive disease/crest variant of scleroderma/HTN/DM/INES/history of cerebral hemorrhage/anemia/stroke/HLD/neuropathic pain/vitamin D deficiency Complicates care, management, recovery, and prognosis. Patient was given Kayexalate in the ER for mild hyperkalemia, plan to recheck his in the a.m. Her renal disease appears to be at baseline. Thank you for the opportunity to participate in this patient's care, please do not hesitate to contact us with any further questions or concerns. This note was generated with [employer] software. It may contain incorrect words, spelling, and punctuation that were not noted in checking the note before signing.
[2017-11-27 12:55] LABS: AST(SGOT) 22 U/L (15-37); Alanine Aminotransfer ALT/SGPT 19 U/L (13-56); Albumin, Serum 2.3 g/dL (3.2-5.0); Alkaline Phosphatase 85 U/L (45-117); Bilirubin, Direct 0.12 mg/dL (0.00-0.30); Globulin 5.3 g/dL (2.2-4.2); LDH 221 U/L (84-246); Protein, Total 7.6 g/dL (6.4-8.2)
--- NOTE | 2017-11-27 13:03 | CON.PCM_ITS ---
Problem List (1) HTN (hypertension) Status: Chronic Qualifiers: (2) CREST variant of scleroderma Status: Chronic (3) Peripheral arterial occlusive disease Status: Chronic (4) S/P craniotomy Status: Chronic Comment: For intracerebral hemorrhage (5) Morbid obesity Status: Chronic (6) CKD (chronic kidney disease) stage 3, GFR 30-59 ml/min Status: Chronic (7) Obstructive sleep apnea Status: Chronic Comment: Untreated (8) Type 2 diabetes mellitus Status: Chronic Qualifiers: (9) History of cerebral hemorrhage Status: Chronic (10) Anemia Status: Chronic Qualifiers: (11) Aortic stenosis, mild Status: Chronic (12) Mitral stenosis Status: Chronic Qualifiers: Cardiac valve disease etiology: etiology unspecified Qualified Code(s): 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 (13) Stroke Status: Chronic Qualifiers: CVA mechanism: unspecified Qualified Code(s): I63.9 - Cerebral infarction, unspecified (14) Hyperlipidemia Status: Chronic Qualifiers: (15) Vitamin D deficiency Status: Chronic (16) Neuropathic pain Status: Chronic Reason for Consult Date of Consultation: 11/27/17 Reason for Consultation: Left pleural effusion, acute on chronic respiratory failure History of Present Illness: The patient is a 72 year old F [facility], with past medical history as below who presented to the ED on 11/27/17 via EMS for complaints of a 3-4 day history of nausea, chest congestion, shortness of breath, and chest pain. Her chest pain was left-sided and she rated an 8 out of 10 with radiation to her left lateral chest, neck, and jaw. Patient described as a pressure, no relieving factors. Taking a deep breath aggravates the pain. Patient reports persistent nonproductive cough, subjective fevers, and hypoxia at 83% on her home oxygen requirement of 3.5 L. Throat is mildly sore. Patient does report aerosol use secondary to her scleroderma. She has also been having some urinary frequency, dysuria, and nocturia. Patient denies any recent sick contacts or illnesses. No recent steroids or antibiotics. No hemoptysis. Her temperature per EMS was 102.0?F. She was placed on a nonrebreather and given full dose aspirin en-route to the hospital. Initial vital signs BP 176/74 , pulse 100, RR 30, 100.9?F orally, and 95% on 5 L of nasal oxygen. Chest x- ray on arrival showed an increase of airspace disease in the left lung obscuring the mid and lower lung parenchyma, diaphragm and costophrenic angle with fluid tracking along the right lower to upper chest wall periphery. Lab work revealed a mild leukocytosis of 11,600, hemoglobin of 8.2 (chronic, stable) , normal coags, slightly elevated potassium at 5.5, BUN of 61 and creatinine of 1.92, which is also the patient's baseline. Glucose was 146. Lactate was normal at 1.4. Serum bicarb is 32, patient does have known chronic CO2 retention. Urinalysis indicative of infection, culture sent. Blood cultures were drawn and are pending. Influenza screening was normal. Urine strep/ Legionella antigens were negative. The patient was given aerosols, antibiotics , IV Lopressor, Tylenol and Kayexalate in the ED. she was transferred to the CVICU as overflow from PCU since no beds were available. The patient was scheduled for a thoracentesis today and pulmonary was consulted to assist with management of her acute on chronic respiratory failure and suspected community- acquired pneumonia. She is currently requiring 5 L of oxygen supplementation with no significant complaints except dyspnea on exertion which is slightly worse than her normal. Pulmonary function tests in June 2017 showed presence of an irreversible very severe mixed ventilatory defect with a symmetric reduction in diffusing capacity. Pulmonary exercise test showed a 3 L oxygen requirement at rest and 4 L with ambulation. The patient was admitted in July 2017 with acute respiratory failure secondary to heart failure and was mechanically ventilated at that time. She was discharged on Lasix therapy and has been doing fairly well since. Patient had a split-night sleep study in September 2017 which showed an AHI of 51.4 events per hour. She had an EGD and colonoscopy 10/27/[address] Stevenson which showed duodenitis, shallow duodenal ulceration, gastritis, distal esophagitis, and diverticulosis with small sessile rectal polyp. She has not noticed any bleeding in her urine or stool. Past Medical History Past Medical History (Chronic Problems): Chronic Problems (Last Updated 11/27/17 @ 08:28 by Fahad Sesay MD) HTN (hypertension) (Chronic) 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) S/P craniotomy (Chronic) For intracerebral hemorrhage Obesity (BMI 30.0-34.9) (Chronic) Morbid obesity (Chronic) CKD (chronic kidney disease) stage 3, GFR 30-59 ml/min (Chronic) Obstructive sleep apnea (Chronic) Untreated Type 2 diabetes mellitus (Chronic) History of cerebral hemorrhage (Chronic) Anemia (Chronic) Aortic stenosis, mild (Chronic) Mitral stenosis (Chronic) mild Stroke (Chronic) Hyperlipidemia (Chronic) Vitamin D deficiency (Chronic) Neuropathic pain (Chronic) Allergies No Known Allergies Allergy (Verified 11/27/17 05:53) Home Medications: Ambulatory Orders Medication Instructions Recorded Atorvastatin Calcium [Lipitor] 40 mg PO QHS 11/27/17 Clonidine HCl 0.1 mg PO TID 11/27/17 Ergocalciferol [Vitamin D] 50,000 unit PO QMONTH 11/27/17 Furosemide [Lasix] 60 mg PO DAILY 11/27/17 Gabapentin [Neurontin] 300 mg PO QHS 11/27/17 Insulin Aspart [Novolog Flexpen units SC 11/27/17 ([facility])] Insulin Glargine,Hum.rec.anlog 39 unit SC BID 11/27/17 [Lantus] Iron Polysaccharide Complex 150 mg PO DAILYCM 11/27/17 [Ferrex 150] Metoprolol Succinate [Toprol Xl] 25 mg PO DAILY 11/27/17 Pantoprazole Sodium [Protonix] 40 mg PO DAILY 11/27/17 Surgical History: cholecystectomy, rotator cuff repair, - - Craniotomy. 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 Denies: Anorexia, Chills, Night Sweats, Weight Change Eyes: Denies: Vision Change HEENT: Reports: Nasal Congestion, Sore Throat. Denies: Difficulty Swallowing, Head Aches, Sinus Congestion Cardiovascular: Reports: Chest Pain - Currently resolved, Chest Tightness, Edema - Bilateral hands, chronic, Orthopnea, Palpitations. Denies: Light Headedness, Paroxysmal Noc. Dyspnea, Syncope Respiratory: Reports: Cough, Pleuritic Pain, Shortness of breath upon exertion, Wheezing. Denies: Hemoptysis, Sputum production Gastrointestinal: Reports: Dyspepsia, Nausea. Denies: Abdominal Pain, Constipation, Diarrhea, Hematemesis, Hematochezia, Melena, Vomiting Genitourinary: Reports: Dysuria, Frequency, Nocturia, Urgency. Denies: Hematuria Gynecological: Denies: Breast symptoms Musculoskeletal: Reports: Muscle pain - Generalized, chronic, Neck Pain - Resolved. Denies: Back Pain Skin: Reports: Dryness, Skin Changes - dryness LEs, discoloration hands. Denies : Wounds Neurological: Reports: Balance problems, - - generalized weakness. Denies: Change in Speech, Confusion, Difficulty swallowing, Focal weakness, Headaches, Numbness, Tingling, Tremor, Seizures Psychiatric: Denies: Anxiety, Depression Endocrine: Denies: Change in Body Habitus, Polydipsia, Polyuria Hematologic/ Lymphatic: Reports: Anemia, Easy Bruising, Hx of blood clot. Denies: Adenopathy, Easy Bleeding Subjective: The patient was seen and examined. She is sitting up in the chair in no acute distress. Her is at the bedside. She denies any current cough, chest pain, palpitations, or shortness of breath. She is not producing any sputum. She does have left-sided chest pain with deep inspiration. Objective: Clinical Impression(s) from Imaging Studies Chest X-Ray 11/27/17 06:08 IMPRESSION: No other recurrent airspace disease in the left mid and lower lung parenchyma likely pneumonia, component of mild to moderate left pleural effusion. Although the heart is mostly obscured, heart appears to be borderline in size possibly mildly enlarged. Electronically Signed: Selina Pickard MD at 6:52 EST , Service support , - Physical Exam General: Alert, Oriented x3, Cooperative, No apparent distress, Well developed, Well nourished, - - No conversational dyspnea HEENT: Atraumatic, Normocephalic Oral: Moist Mucosa, No Gingival or Mucosal Lesions/ Ulcerations Neck: Supple, No Nodes, Trachea Midline Lungs: - - Poor air movement in all lung pitt, some dullness to percussion to posterior left mid and base and symmetrical expansion, no tachypnea, no wheezing or rales Cardiovascular: Regular rate, Regular Rhythm, Normal S1, Normal S2, No murmurs, No rub noted, No Gallop Abdomen: Bowel Sounds Present, Soft, Non Tender, Non-Distended, Obese, Hernia - Umbilical, - - No CVA tenderness Extremities: No clubbing, No cyanosis, Capillary Refill Less than 3 Seconds, No Calf Tenderness, - - Bilateral hands/digits edematous with skin changes, R>L. Skin: No rashes, No breakdown, - - Venous stasis changes noted Musculoskeletal: No Tenderness to Palpation of Joints or Extremities Lymphatic: No Cervical, Supraclavicular, or Inguinal Adenopathy Neurological: Cranial nerves II-XII grossly intact, Neuro grossly intact, Motor Exam 5/5 strength throughout Psych/Mental Status: Alert and oriented to time, place, person, mood and affect Vital Signs Temp Pulse Resp BP Pulse Ox 97.8 F 76 25 H 141/102 H 100 11/27/17 09:00 11/27/17 11:54 11/27/17 11:04 11/27/17 11:08 11/27/17 11:00 Oxygen Flow Rate 5 Oxygen Delivery Method Nasal Cannula Weight: 214 lb 15.211 oz Body Mass Index (BMI) 35.7 Laboratory Tests Past 24 Hrs 11/27/17 11/27/17 11/27/17 09:30 09:30 09:30 PT 16.0 H INR 1.3 APTT 48.9 H Magnesium 2.2 Total Bilirubin Direct Bilirubin AST ALT Alkaline Phosphatase Lactate Dehydrogenase Troponin I 0.04 Total Protein Albumin TSH 0.56 11/27/17 09:30 PT INR APTT Magnesium Total Bilirubin Pending Direct Bilirubin Pending AST Pending ALT Pending Alkaline Phosphatase Pending Lactate Dehydrogenase Pending Troponin I Total Protein Pending Albumin Pending TSH POC Glucose 11/27/17 12:12 POC Glucose 194 H Assessment/Plan RECOMMENDATIONS 1. Wean oxygen supplementation to keep saturations 88-92%. 2. Encourage incentive spirometer 3. Increase activity as tolerated 4. Continue aerosols 5. Continue antibiotics 6. Thoracentesis scheduled for around 1330 today, await fluid for cytology/ culture 7. Continue diuresis, beta-stephania 8. Await echocardiogram, cardiology consult IMPRESSIONS 1. Acute on chronic hypoxic respiratory failure/end-stage COPD/pulmonary hypertension secondary to scleroderma/left pleural effusion Patient known in pulmonary clinic. Patient does present with findings consistent with acute hypoxic respiratory failure. Last had pneumonia in July 2017. Serum bicarb shows chronic CO2 retention, current value upper limits of normal. Imaging showing mild to moderate pleural effusion and questionable infiltrate. Does have a history of left-sided pleural effusion but worse on current imaging. Patient also with A. fib RVR on arrival but this has resolved as of 1115, unclear if etiology of fluid accumulation. Mild presenting leukocytosis, no significant cough or sputum production. Lactate normal. No fevers or chills. Infectious workup is pending. Continue antibiotics and plan for thoracentesis today, await cytology and culture studies. Serum protein and LDH were performed. Continue to wean oxygen supplementation to keep saturations greater than 88%. Continue aerosols. We will continue to follow. 2. New onset atrial fibrillation with RVR See #1. Patient had metoprolol 5 mg IV ?1. She spontaneously converted back to a sinus rhythm around 1115 today. She is not anticoagulated but receiving DVT prophylaxis with heparin. Cardiology has been consulted. 3. Acute cystitis Cultures pending. Patient on appropriate antibiotics. No CVA tenderness. Management per hospitalist. 4. Hyperkalemia/CKD/morbid obesity/peripheral artery occlusive disease/crest variant of scleroderma/HTN/DM/INES/history of cerebral hemorrhage/anemia/stroke/ HLD/neuropathic pain/vitamin D deficiency Complicates care, management, recovery, and prognosis. Patient was given Kayexalate in the ER for mild hyperkalemia, plan to recheck his in the a.m. Her renal disease appears to be at baseline. Thank you for the opportunity to participate in this patient's care, please do not hesitate to contact us with any further questions or concerns. This note was generated with [employer] ok[employer]ation software. It may contain incorrect words, spelling, and punctuation that were not noted in checking the note before signing.
--- NOTE | 2017-11-27 13:43 | CASEMGMT ---
See RN CM Assessment Link. DC Plan: Home on dc. Will continue to follow and assist with dc planning needs. Babita CAMPBELL RN ACM
--- NOTE | 2017-11-27 16:30 | CON.PCM_ITS ---
Problem List (1) Paroxysmal A-fib Status: Acute (2) Valvular heart disease Status: Chronic (3) HTN (hypertension) Status: Chronic Qualifiers: Hypertension type: essential hypertension (4) Hyperlipidemia Status: Chronic Qualifiers: (5) Type 2 diabetes mellitus Status: Chronic Qualifiers: (6) CKD (chronic kidney disease) stage 3, GFR 30-59 ml/min Status: Chronic (7) Anemia Status: Chronic Qualifiers: (8) Pulmonary hypertension Status: Chronic (9) Obstructive sleep apnea Status: Chronic Comment: Untreated (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 She has presented with concerns of an atypical left-sided chest discomfort, shortness of breath/dyspnea, cough, subsequent findings of a left-sided pleural effusion, as well as concerns of an underlying urinary tract infection. She has had paroxysmal atrial fibrillation with rapid ventricular response. She has been undergoing evaluation in the ICU for the aforementioned concerns. From a cardiac standpoint she has had troponin I levels which have been negative. Her ECG demonstrated atrial fibrillation with rapid ventricular response with a low voltage QRS. Her chest x-ray suggested a left sided pleural effusion. She was tentatively scheduled for a left-sided thoracentesis however this was canceled. She had a transthoracic echocardiogram performed. Her left ventricle was noted to be normal with respect to size, wall motion, and systolic function with an estimated LVEF of 65%; left atrial enlargement; mitral annular calcification; mild MR, mild TR, mild aortic valve stenosis and an estimated RV systolic pressure of 51 mmHg compatible pulmonary hypertension. She has been treated with antibiotic therapy based on concerns of an underlying urinary tract related infectious disease process. The patient states that she can feel her heart rate change. She states when it does she feel somewhat tighter in the chest. She has noted her shortness of breath and dyspnea progressing over the last 1-2 weeks. She has not had complaints of orthopnea, PND, or progressive lower extremity peripheral pitting edema. There has been no near syncope or syncope. [] Past Medical History Allergies/Adverse Reactions: Allergies No Known Allergies Allergy (Verified 11/27/17 05:53) Home Medications: Ambulatory Orders Medication Instructions Recorded Atorvastatin Calcium [Lipitor] 40 mg PO QHS 11/27/17 Clonidine HCl 0.1 mg PO TID 11/27/17 Ergocalciferol [Vitamin D] 50,000 unit PO QMONTH 11/27/17 Furosemide [Lasix] 60 mg PO DAILY 11/27/17 Gabapentin [Neurontin] 300 mg PO QHS 11/27/17 Insulin Aspart [Novolog Flexpen units SC 11/27/17 ([facility])] Insulin Glargine,Hum.rec.anlog 39 unit SC BID 11/27/17 [Lantus] Iron Polysaccharide Complex 150 mg PO DAILYCM 11/27/17 [Ferrex 150] Metoprolol Succinate [Toprol Xl] 25 mg PO DAILY 11/27/17 Pantoprazole Sodium [Protonix] 40 mg PO DAILY 11/27/17 Past Medical History (Chronic Problems): Chronic Problems (Last Updated 11/27/17 @ 08:28 by Fahad Sesay MD) Valvular heart disease (Chronic) Pulmonary hypertension (Chronic) HTN (hypertension) (Chronic) 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) S/P craniotomy (Chronic) For intracerebral hemorrhage Obesity (BMI 30.0-34.9) (Chronic) Morbid obesity (Chronic) CKD (chronic kidney disease) stage 3, GFR 30-59 ml/min (Chronic) Obstructive sleep apnea (Chronic) Untreated Type 2 diabetes mellitus (Chronic) History of cerebral hemorrhage (Chronic) Anemia (Chronic) Aortic stenosis, mild (Chronic) Mitral stenosis (Chronic) mild Stroke (Chronic) Hyperlipidemia (Chronic) Vitamin D deficiency (Chronic) Neuropathic pain (Chronic) Surgical History: cholecystectomy, rotator cuff repair, - - Craniotomy. 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 history - *Family History Maternal Family History: Family History (Last Updated 09/26/17 @ 12:38 by Jazlyn Gibson) Mother Cancer Diabetes Kidney disease Father Heart disease Diabetes Kidney disease History Items: Cancer, Diabetes, Renal Disease Paternal Family History: Family History (Last Updated 09/26/17 @ 12:38 by Jazlyn Gibson) Mother Cancer Diabetes Kidney disease Father Heart disease Diabetes Kidney disease History Items: Diabetes, Heart Disease, Renal Disease Lives: Spouse/ Significant Other Smoking Status: Never smoker Tobacco Use: Non-smoker Alcohol: None Drugs: None Review of Systems - Review of Systems General: Denies: Fever, Night Sweats, Fatigue Cardiovascular: Reports: Shortness of Breath, Peripheral Edema, Palpitations. Denies: Chest Discomfort, Orthopnea, PND, Lightheadedness, Dizziness, Near Syncope, Syncope Respiratory: Reports: Sputum Production. Denies: Cough, Hemoptysis Gastrointestinal: Denies: Hematemesis, Hematochezia, Melena Genitourinary: Denies: Dysuria, Hematuria Skin: Denies: Rash Subjectve: This is a 72-year-old white female who appears to be resting reasonably comfortably at the moment in no acute distress. Objective: Vital Signs Temp Pulse Resp BP Pulse Ox 97.8 F 76 25 H 141/102 H 100 11/27/17 09:00 11/27/17 11:54 11/27/17 11:04 11/27/17 11:08 11/27/17 11:00 Oxygen Flow Rate 5 Oxygen Delivery Method Nasal Cannula Weight: 214 lb 15.211 oz Body Mass Index (BMI) 35.7 Intake and Output for Last 24 Hours 11/25/17 11/26/17 11/27/17 23:59 23:59 23:59 Intake Total 208 / 208 Output Total 0 / 0 Balance 208 / 208 General: Awake, Alert, Oriented x 3, Cooperative, No Acute Distress Neck: No JVD Lungs: Diminished Mendez Bases - Left greater than right Cardiovascular: Irregular Rhythm, Normal S1, Normal S2 Vascular: No Carotid Bruits Abdomen: Bowel Sounds Present, Soft, Non Tender, Obese Extremities: Trace RLE Edema, Trace LLE Edema 11/27/17 09:30: PT 16.0 H, INR 1.3, APTT 48.9 H 11/27/17 09:30: Troponin I 0.04 11/27/17 09:30: Magnesium 2.2 11/27/17 09:30: Total Bilirubin 0.30, Direct Bilirubin 0.12 Rhythm: Atrial fibrillation EKG: As noted above ECHO: As noted above Holter monitor: 02/12/2016: Sinus rhythm; PACs; atrial runs; no atrial fibrillation reported; no wide complex runs or tachycardia reported; no prolonged pauses reported CXR: Please see official report Assessment/Plan 1. Paroxysmal atrial fibrillation with rapid ventricular response The patient has a history of paroxysmal atrial fibrillation. She has been documenting recurrence of this since being in the hospital. This may be exacerbated based on her underlying noncardiovascular issues including infectious disease issues as well as other noncardiovascular issues including underlying pulmonary issues superimposed upon the patient's history of atrial enlargement and mitral valve disease, etc. At the present time she remains with rapid ventricular response. She has been on rate control therapy in the past as well as anticoagulant therapy. It is reasonable to continue both of these as deemed appropriate during her hospitalization. However it may be reasonable to try and bring her rate and rhythm under better control. This would include an attempt at antiarrhythmic therapy such as amiodarone therapy. She is also completing her cardiac enzyme evaluation. They have been negative thus far. Her ECG is demonstrated no other new acute changes. Her transthoracic echocardiogram is as noted above. At some point in time the patient may need to be further screened for the possibility of CAD and myocardial ischemia contributing to her symptoms and her findings. However this may have to be postponed until she has improved from a noncardiovascular standpoint with respect to concerns of infectious disease and/ or underlying pulmonary disease. 2. Valvular heart disease Patient does have valvular heart disease as previously noted. Certainly this can contribute to concerns with her left atrial size as well as subsequent atrial dysrhythmias. At the present time she will need to continue to be followed by history, exam, and echocardiographic studies. She will need compensatory medical management as best as possible in the interim. 3. Hypertension May be a contributing factor to the patient's atrial dysrhythmia. Thus she will need to continue her antihypertensive therapy as best as possible. 4. Hyperlipidemia The patient will need to continue risk factor modification and lipid-lowering therapy. 5. Diabetes mellitus The patient will continue under the care of internal medicine. 6. Chronic renal insufficiency The patient's renal function will need to be followed during her hospitalization. This may impact medical management. 7. Anemia If the patient's H&H declines she may need to be considered for PRBC transfusion to maintain adequate oxygen carrying capacity. 8. Pulmonary hypertension The patient does have underlying pulmonary hypertension. This may be multifactorial. There may be a combination of her underlying mitral valve disease process associated with this. At the same time this may be predominantly from noncardiac issues such as concerns of her connective tissue disease related issues obstructive sleep apnea issues. This can also impact her atrial dysrhythmia. 9. Obstructive sleep apnea The patient will continue evaluation care per pulmonology. 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 She will need to continue to be followed by her primary care physician and other subspecialists as deemed appropriate. Comment: The above was discussed and reviewed with the patient, her family members present, and Dr. Valencia. This note was generated with [employer] dictation software. It may contain incorrect words, spelling, and punctuation that were not noted in checking the note before signing.
[2017-11-27] MEDS: cloNIDine HCl 0.1 MG Tablet PO ×2 (16:33→22:06)
[2017-11-27] MEDS: Piperacil/Tazobactam 3.375 GM/50 ML ML IV ×2 (16:33→22:12)
[2017-11-27 17:17] LABS: Potassium 4.2 mmol/L (3.5-5.1)
[2017-11-27 17:50] LABS: Bedside Glucose 209 mg/dL (70-110)
[2017-11-27] MEDS: 0.9% NaCl Peripheral Flush Adult/Peds IV (21:57)
[2017-11-27 22:01] LABS: Bedside Glucose 195 mg/dL (70-110)
[2017-11-27] MEDS: Atorvastatin Calcium 40 MG Tablet PO (22:06)
[2017-11-27] MEDS: Heparin Injection 5,000 UNITS/ML Syringe 5000 UNITS SC (22:06)
[2017-11-27] MEDS: Gabapentin 300 MG Capsule PO (22:06)
[2017-11-28] VITALS (38 sets, daily range): BP systolic 117–165; BP diastolic 49–129; PULSE 61–131; RESP 12–27; TEMP 36.1–37.1; O2SAT 92–100
[2017-11-28] MEDS: Ipratropium/Albuterol Sulfate 3 ML AMPUL.NEB INHALATION ×4 (00:54→19:52)
[2017-11-28 04:42] LABS: Absolute Lymphocyte Count 1.18 X10^3/ul (0.83-4.51); Absolute Neutrophil Count 6.6 X10^3/uL (2.0-7.7); Basophil# 0.02 X10^3/uL; Basophil% 0.2 % (0-1); Eosinophil# 0.18 X10^3/uL; Eosinophils% 2.1 % (0-5); Hematocrit 26.2 % (37-47); Hemoglobin 7.7 g/dl (12.0-15.0); Lymphocyte # 1.18 X10^3/ul (4.0); Lymphocyte % 13.6 % (19-41); Mean Corp Hgb Conc 29.4 g/gl (32-36); Mean Corpuscular Hgb 28.5 pg (27.0-32.0); Mean Platelet Vol. 9.1 fl (6.2-12.0); Monocyte# 0.74 X10^3/uL; Monocyte% 8.5 % (0-10); Neutrophil # 6.56 X10^3/uL (2.7-7.7); Neutrophil % 75.4 % (47-70); Platelet Count 221 K/mm3 (150-450); RBC Distribution Width CV 15.7 % (11.6-14.6); RBC Distribution Width SD 55.6 fl (35.1-43.9); White Blood Count 8.7 K/mm3 (4.4-11.0)
[2017-11-28 04:45] LABS: Anion Gap 7 (5-15); BUN 60 mg/dL (7-18); BUN/Creat Ratio 31.9 RATIO (10-20); Calcium,Total 8.3 mg/dL (8.5-10.1); Chloride 99 mmol/L (98-107); Creatinine, Serum 1.88 mg/dL (0.55-1.02); EST Glomerular Filtration Rate 28 mL/min (>60); Est Glom Filt Rate - Afr Amer 34 mL/min (>60); Estimated Creatinine Clearance 25.06 ml/min; Glucose 66 mg/dL (74-106); Sodium Level 140 mmol/L (136-145)
[2017-11-28 04:55] LABS: POSITIVE COUNT NO; POSITIVE DIFFERENTIAL NO; POSITIVE MORPHOLOGY NO
[2017-11-28] MEDS: Piperacil/Tazobactam 3.375 GM/50 ML ML IV ×3 (05:14→21:42)
[2017-11-28] MEDS: cloNIDine HCl 0.1 MG Tablet PO ×3 (05:16→21:25)
--- NOTE | 2017-11-28 05:55 | EKG12_ITS ---
Test Reason : CP Blood Pressure : / mmHG Vent. Rate : 103 BPM Atrial Rate : 103 BPM P-R Int : 130 ms QRS Dur : 080 ms QT Int : 342 ms P-R-T Axes : 046 023 059 degrees QTc Int : 448 ms Sinus tachycardia Otherwise normal ECG Confirmed by RHIANNON MARKHAM ([id number]), commissioning editor HONORIO SHEFFIELD ([id number] on 12/02/2017 1:49:59 PM Referred By: Severiano Kumar Confirmed By:RHIANNON MARKHAM
--- NOTE | 2017-11-28 05:55 | RAD_ITS ---
STUDY: X-RAY CHEST REASON FOR EXAM: Female, 72 years old. Shortness of breath. TECHNIQUE: PA and lateral views of the chest. COMPARISON: Comparison is made with prior examination dated November 27, 2017. FINDINGS: EKG electrodes are seen. Persistent consolidation in the left lower lobe with blunting of the left costophrenic angle. Mild improved aeration as compared to prior study. And now is evidence of blunting of the right costophrenic angle as well as increased markings at the right lung base suggestive of either early infiltrate or atelectasis. There is calcification of the mitral valve annulus. Normal mediastinum and jose f. Normal visualized pulmonary arteries. There is atherosclerotic calcification of the aortic arch with tortuosity. Prior vertebroplasty of the L1 vertebrae. Normal visualized ribs, clavicles, and shoulders. There is no demonstrated abnormality of the visualized soft tissue structures of the upper abdomen. RAD/Chest PA and Lateral IMPRESSION: Persistent consolidation in the left lower lobe although there is slight improvement in the aeration of the left lower lobe. Blunting of the right costophrenic angle with mild increased markings at the right lung base. Electronically Signed: Brett Arcos MD at 9:06 EST Tel [phone], Service support ,
[2017-11-28] MEDS: oxyCODONE 5 MG Tablet PO (05:58)
[2017-11-28 07:51] LABS: Bedside Glucose 110 mg/dL (70-110)
[2017-11-28] MEDS: Iron Polysaccharide Complex 150 MG CAPSULE PO (08:14)
--- NOTE | 2017-11-28 09:03 | PCM.PROGNOTE ---
Patient Problems: Active and Suspected Problems (Last Updated 11/27/17 @ 08:28 by Fahad Sesay MD) Paroxysmal A-fib (Acute) Subjective: Chief complaint: Follow-up after admission for questionable community-acquired pneumonia, left pleural effusion, acute on chronic hypoxic respiratory failure, acute cystitis, new onset A. fib and mild hyperkalemia. Patient seen and examined. No acute events overnight. This morning, she complained of left-sided chest pain underneath her left breast. Shortness of breath improved, she is down to 3.5 L of oxygen which is her baseline at home. Denied cough or sputum production. Denied abdominal pain, nausea vomiting. Afebrile overnight. She has been in and out of A. fib all night and also this morning. Blood pressure has been on the higher side, pulse ox is 97% on 3.5 L. - Physical Exam General: Alert, Oriented x3, Cooperative, - - Minimally short of breath HEENT: Atraumatic, PERRLA, EOMI Oral: Moist Mucosa, No Gingival or Mucosal Lesions/ Ulcerations Neck: Supple, No JVD, Negative Carotid Bruits, Trachea Midline, Thyroid Normal Size and Texture Lungs: No wheeze, Diminished, Rales, Rhonchi, Short of Breath, - - Decreased breath sounds on the left base, scattered rhonchi. Cardiovascular: Normal S1, Normal S2, No murmurs, PMI Normal, Irregular Rate, Tachycardic Abdomen: Bowel Sounds Present, Soft, Non Tender, Non-Distended, No Hepato-splenomegaly Extremities: No clubbing, No cyanosis, No edema Skin: No rashes, No breakdown Lymphatic: No Cervical, Supraclavicular, or Inguinal Adenopathy Neurological: Cranial nerves II-XII grossly intact, Motor Exam 5/5 strength throughout Psych/Mental Status: Normal Affect, Appropriate, Alert and oriented to time, place, person, mood and affect Vital Signs Temp Pulse Resp BP Pulse Ox 98.1 F 123 H 19 H 149/129 H 97 11/28/17 04:00 11/28/17 08:00 11/28/17 08:00 11/28/17 08:00 11/28/17 08:00 Oxygen Flow Rate 3.5 Oxygen Delivery Method Nasal Cannula Weight: 214 lb 15.211 oz Body Mass Index (BMI) 35.7 Intake and Output for Last 24 Hours 11/26/17 11/27/17 11/28/17 23:59 23:59 23:59 Intake Total 905 / 905 507 / 507 Output Total 0 / 0 Balance 905 / 905 507 / 507 Laboratory Tests Past 24 Hrs 11/27/17 11/27/17 11/27/17 09:30 09:30 09:30 WBC RBC Hgb Hct MCV MCH MCHC RDW RDW Differential Plt Count MPV Immature Gran % (Auto) Neut % (Auto) Lymph % (Auto) [place] % (Auto) Eos % (Auto) Baso % (Auto) Absolute Neuts (auto) Absolute Lymphs (auto) Total Counted PT 16.0 H INR 1.3 APTT 48.9 H Sodium Potassium Chloride Carbon Dioxide Anion Gap BUN Creatinine Estim Creat Clear Calc Est GFR (MDRD) Af Amer Est GFR (MDRD) Non-Af BUN/Creatinine Ratio Glucose Calcium Magnesium 2.2 Total Bilirubin Direct Bilirubin AST ALT Alkaline Phosphatase Lactate Dehydrogenase Troponin I 0.04 Total Protein Albumin Globulin TSH 0.56 11/27/17 11/27/17 11/27/17 09:30 16:45 16:45 WBC RBC Hgb Hct MCV MCH MCHC RDW RDW Differential Plt Count MPV Immature Gran % (Auto) Neut % (Auto) Lymph % (Auto) [place] % (Auto) Eos % (Auto) Baso % (Auto) Absolute Neuts (auto) Absolute Lymphs (auto) Total Counted PT INR APTT Sodium Potassium 4.2 Chloride Carbon Dioxide Anion Gap BUN Creatinine Estim Creat Clear Calc Est GFR (MDRD) Af Amer Est GFR (MDRD) Non-Af BUN/Creatinine Ratio Glucose Calcium Magnesium Total Bilirubin 0.30 Direct Bilirubin 0.12 AST 22 ALT 19 Alkaline Phosphatase 85 Lactate Dehydrogenase 221 Troponin I 0.03 Total Protein 7.6 Albumin 2.3 L Globulin 5.3 H TSH 11/27/17 11/28/17 11/28/17 19:55 04:15 04:15 WBC 8.7 RBC 2.70 L Hgb 7.7 L Hct 26.2 L MCV 97.0 MCH 28.5 MCHC 29.4 L RDW 15.7 H RDW Differential 55.6 H Plt Count 221 MPV 9.1 Immature Gran % (Auto) 0.200 Neut % (Auto) 75.4 H Lymph % (Auto) 13.6 L [place] % (Auto) 8.5 Eos % (Auto) 2.1 Baso % (Auto) 0.2 Absolute Neuts (auto) 6.6 Absolute Lymphs (auto) 1.18 Total Counted Not Reportable PT INR APTT Sodium 140 Potassium 4.0 Chloride 99 Carbon Dioxide 34.0 H Anion Gap 7 BUN 60 H Creatinine 1.88 H Estim Creat Clear Calc 25.06 Est GFR (MDRD) Af Amer 34 L Est GFR (MDRD) Non-Af 28 L BUN/Creatinine Ratio 31.9 H Glucose 66 L Calcium 8.3 L Magnesium Total Bilirubin Direct Bilirubin AST ALT Alkaline Phosphatase Lactate Dehydrogenase Troponin I < 0.02 Total Protein Albumin Globulin TSH POC Glucose 11/28/17 11/27/17 11/27/17 07:46 21:54 17:36 POC Glucose 110 195 H 209 H 11/27/17 12:12 POC Glucose 194 H Assessment/Plan Active and Suspected Problems (Last Updated 11/27/17 @ 08:28 by Fahad Sesay MD) Paroxysmal A-fib (Acute) This is a 72 years old female patient presented to the medicine because of left-sided pleuritic chest pain, found to have left-sided pleural effusion, suspected community-acquired pneumonia, hyperkalemia, acute cystitis, acute on chronic hypoxic respiratory failure and shortly after admission, she developed A. fib with RVR. #1 Questionable left lung community-acquired pneumonia: He is on empiric IV Zosyn and Levaquin. She remained afebrile, white blood cell count is back to normal. Pneumococcal and Legionella antigen were negative. Nasal swab for influenza a and B were negative. Blood and urine cultures are pending. Plan to continue same treatment. #2 left pleural effusion: Although chest x-ray revealed pleural effusion on the left, ultrasound of the chest reveals no significant amount of pleural fluid and thoracentesis was canceled yesterday. AP and lateral chest x-ray performed this morning, report is pending. #3 acute on chronic hypoxic respiratory failure: Her symptoms improved, less short of breath, she is down to 3.5 L of oxygen which is her baseline at home. Patient has been on oxygen since July, for chronic respiratory failure. #4 acute cystitis: He is on IV Zosyn and Levaquin. Urine cultures pending. She is afebrile, leukocytosis resolved. #5 new onset A. fib with RVR: He is on IV amiodarone drip. She has been in and out of A. fib, heart rate fluctuates significantly. 2D echocardiogram revealed a fraction of 65%, other findings reviewed. Her potassium, sodium and magnesium were normal. TSH was normal. Troponin was negative ?2. Cardiology on the case. #6 mild hyperkalemia: Doubt EKG changes. Potassium is back to normal. Her kidney function remained stable, today's creatinine is 1.88. #7 stage III chronic kidney disease: Creatinine is around 1.4-2 mg/dL. Admission creatinine is 1.92, today's creatinine is 1.88, stable at baseline. #8 type 2 diabetes mellitus: Blood sugar stable, continue ADA diet, Accu-Cheks, insulin sliding scale, continue home doses of Levemir insulin twice daily. #9 hypertension: Blood pressure stable, continue clonidine and metoprolol. #10 DVT prophylaxis: Subcu heparin. Other chronic medical problems: #1 chronic anemia. #2 Crest variant of scleroderma. #3 peripheral vascular disease. #4 obstructive sleep apnea. #5 history of stroke. #6 morbid obesity. #7 history of cerebral bleed status post craniectomy. This note was generated with [employer] dictation software. It may contain incorrect words, spelling, and punctuation that were not noted in checking the note before signing. Code Visit Inpatient E&M: 47090 Subs Hosp L2
--- NOTE | 2017-11-28 09:20 | SLEEP ---
PT'S HOME BIPAP UNIT IN ROOM HOWEVER HOSPITAL BIPAP SET UP AND PT HAS BEEN USING. HER HOME UNIT SETTINGS 20/08, COMMUNICATED WITH DR. GALINDO WELL JANINE IN [place]. [facility] IS D[facility], PT AND SPOUSE STATE HOME UNIT TURNS OFF RANDOMLY WHILE IN USE, ENCOURAGED THEM TO CONTACT [facility] URGENTLY WITH THIS ISSUE, I AM GOING TO ATTEMPT CONTACT WITH THEM WELL TO GET THIS ADDRESSED. PT HAS ONLY BEEN SET UP SINCE END SEP/BEGINNING OF OCT.
--- NOTE | 2017-11-28 09:49 | CPS ---
Addendum entered by Korin Kahn 11/28/17 09:53: The power cord is at home, patient's to bring it in the AM. Original Note: Patient's brought in home bipap machine.
[2017-11-28] MEDS: Heparin Injection 5,000 UNITS/ML Syringe 5000 UNITS SC ×2 (10:36→21:25)
[2017-11-28] MEDS: Pantoprazole Sodium 40 MG Tablet PO (10:36)
[2017-11-28] MEDS: Metoprolol(XL)Succ 25 MG Tablet PO (10:37)
[2017-11-28 11:51] LABS: Bedside Glucose 238 mg/dL (70-110)
--- NOTE | 2017-11-28 11:54 | PCM.PROGNOTE ---
Patient Problems: Active and Suspected Problems (Last Updated 11/27/17 @ 08:28 by Fahad Sesay MD) Paroxysmal A-fib (Acute) Subjective: The patient was seen and examined. She is sitting up at the bedside eating her lunch. States I feel horrible. Reports her chest tightness/heaviness has been unchanged but continuous. She gets short of breath with minimal exertion and with daily activities, such as eating. She has been weaned to her baseline of 3-1/2 L per nasal cannula. Her blood pressure is stable, however she is going in and out of atrial fibrillation with a heart rate in the 120s-130s. This does not appear to correlate with her chest discomfort as it is continuous. Objective: Lab work reviewed, hemoglobin has dropped from 10.2-7.7 since 10/13/17. Leukocytosis has resolved. Patient remains afebrile. Renal function elevated but at baseline. Urine culture showing preliminary result of GNR lactose design leader, sensitivities are pending. Urine strep/Legionella antigens were negative and blood cultures are pending. Influenza negative. Clinical Impression(s) from Imaging Studies Chest X-Ray 11/27/17 06:08 IMPRESSION: No other recurrent airspace disease in the left mid and lower lung parenchyma likely pneumonia, component of mild to moderate left pleural effusion. Although the heart is mostly obscured, heart appears to be borderline in size possibly mildly enlarged. Electronically Signed: Selina Pickard MD at 6:52 EST , Service support , Chest Ultrasound 11/27/17 09:00 IMPRESSION: No pleural effusion is seen. Electronically Signed: Brett Arcos MD at 15:18 EST Tel [phone], Service support , Chest X-Ray 11/28/17 05:55 IMPRESSION: Persistent consolidation in the left lower lobe although there is slight improvement in the aeration of the left lower lobe. Blunting of the right costophrenic angle with mild increased markings at the right lung base. Electronically Signed: Brett Arcos MD at 9:06 EST Tel [phone], Service support , Echocardiogram 11/27/17: The study was technically difficult. Contrast injection was performed. Left ventricular systolic function is normal. The estimated ejection fraction is 65 %. The left atrium is moderately enlarged. There is moderate to severe mitral annular calcification. Extension of the mitral annular calcification onto the mitral valve leaflets. Mild focal mitral valve calcification of the anterior leaflet. Mild (1+) mitral valve insufficiency. Mild tricuspid valve insufficiency. Mild aortic stenosis. Trivial pulmonic valve insufficiency. Right ventricular systolic pressure estimated to be 51 mmHg. Transmitral diastolic flow velocities suggest diastolic dysfunction (pseudonormal pattern). - Physical Exam General: Alert, Oriented x3, Cooperative, No apparent distress, - - speaking in full sentences, no conversational dyspnea HEENT: Atraumatic, Normocephalic Oral: Moist Mucosa, No Gingival or Mucosal Lesions/ Ulcerations Neck: Supple, No Nodes, Trachea Midline Lungs: - - diminished t/o with rales to left lung pitt + R basilar. No significant wheezing or rhonchi. Cardiovascular: Normal S1, Normal S2, Irregular Rate, Murmur, No rub noted, No Gallop, Tachycardic Abdomen: Bowel Sounds Present, Soft, Non Tender, Non-Distended, Obese, Hernia Skin: - - unchanged from previous Musculoskeletal: No Tenderness to Palpation of Joints or Extremities Lymphatic: No Cervical, Supraclavicular, or Inguinal Adenopathy Neurological: Cranial nerves II-XII grossly intact, Neuro grossly intact, Motor Exam 5/5 strength throughout Psych/Mental Status: Alert and oriented to time, place, person, mood and affect Vital Signs Temp Pulse Resp BP Pulse Ox 97.0 F L 126 H 18 125/49 H 96 11/28/17 10:00 11/28/17 11:00 11/28/17 11:00 11/28/17 11:00 11/28/17 11:00 Oxygen Flow Rate 3.5 Oxygen Delivery Method Nasal Cannula Weight: 214 lb 15.211 oz Body Mass Index (BMI) 35.7 Intake and Output for Last 24 Hours 11/26/17 11/27/17 11/28/17 23:59 23:59 23:59 Intake Total 905 / 905 847 / 847 Output Total 0 / 0 Balance 905 / 905 847 / 847 Laboratory Tests Past 24 Hrs 11/27/17 11/27/17 11/27/17 09:30 09:30 16:45 WBC RBC Hgb Hct MCV MCH MCHC RDW RDW Differential Plt Count MPV Immature Gran % (Auto) Neut % (Auto) Lymph % (Auto) [facility] % (Auto) Eos % (Auto) Baso % (Auto) Absolute Neuts (auto) Absolute Lymphs (auto) Total Counted Sodium Potassium 4.2 Chloride Carbon Dioxide Anion Gap BUN Creatinine Estim Creat Clear Calc Est GFR (MDRD) Af Amer Est GFR (MDRD) Non-Af BUN/Creatinine Ratio Glucose Calcium Magnesium 2.2 Total Bilirubin 0.30 Direct Bilirubin 0.12 AST 22 ALT 19 Alkaline Phosphatase 85 Lactate Dehydrogenase 221 Troponin I Total Protein 7.6 Albumin 2.3 L Globulin 5.3 H TSH 0.56 11/27/17 11/27/17 11/28/17 16:45 19:55 04:15 WBC 8.7 RBC 2.70 L Hgb 7.7 L Hct 26.2 L MCV 97.0 MCH 28.5 MCHC 29.4 L RDW 15.7 H RDW Differential 55.6 H Plt Count 221 MPV 9.1 Immature Gran % (Auto) 0.200 Neut % (Auto) 75.4 H Lymph % (Auto) 13.6 L [facility] % (Auto) 8.5 Eos % (Auto) 2.1 Baso % (Auto) 0.2 Absolute Neuts (auto) 6.6 Absolute Lymphs (auto) 1.18 Total Counted Not Reportable Sodium Potassium Chloride Carbon Dioxide Anion Gap BUN Creatinine Estim Creat Clear Calc Est GFR (MDRD) Af Amer Est GFR (MDRD) Non-Af BUN/Creatinine Ratio Glucose Calcium Magnesium Total Bilirubin Direct Bilirubin AST ALT Alkaline Phosphatase Lactate Dehydrogenase Troponin I 0.03 < 0.02 Total Protein Albumin Globulin TSH 11/28/17 04:15 WBC RBC Hgb Hct MCV MCH MCHC RDW RDW Differential Plt Count MPV Immature Gran % (Auto) Neut % (Auto) Lymph % (Auto) [facility] % (Auto) Eos % (Auto) Baso % (Auto) Absolute Neuts (auto) Absolute Lymphs (auto) Total Counted Sodium 140 Potassium 4.0 Chloride 99 Carbon Dioxide 34.0 H Anion Gap 7 BUN 60 H Creatinine 1.88 H Estim Creat Clear Calc 25.06 Est GFR (MDRD) Af Amer 34 L Est GFR (MDRD) Non-Af 28 L BUN/Creatinine Ratio 31.9 H Glucose 66 L Calcium 8.3 L Magnesium Total Bilirubin Direct Bilirubin AST ALT Alkaline Phosphatase Lactate Dehydrogenase Troponin I Total Protein Albumin Globulin TSH POC Glucose 11/28/17 11/28/17 11/27/17 11:35 07:46 21:54 POC Glucose 238 H 110 195 H 11/27/17 11/27/17 17:36 12:12 POC Glucose 209 H 194 H Assessment/Plan Active and Suspected Problems (Last Updated 11/27/17 @ 08:28 by Fahad Sesay MD) Paroxysmal A-fib (Acute) RECOMMENDATIONS 1. Wean oxygen supplementation to keep saturations 88-92%. 2. Encourage incentive spirometer 3. Increase activity as tolerated 4. Continue aerosols and antibiotics 5. Cardiology following 6. CT of chest without contrast IMPRESSIONS 1. Acute on chronic hypoxic respiratory failure/end-stage COPD/pulmonary hypertension secondary to scleroderma/left pleural effusion Patient does present with findings consistent with acute hypoxic respiratory failure, similar to presentation in 07/2017. Etiology unclear. Initial imaging showing mild to moderate pleural effusion and questionable infiltrate. Repeat imaging 11/28 showed no significant improvement. Patient also with A. fib RVR on arrival that resolved briefly, but is now persistent with ongoing chest discomfort. Leukocytosis resolved, no significant cough or sputum production. Lactate normal. No fevers or chills. Infectious workup is pending. Thoracentesis was cancelled secondary to no fluid located on ultrasound. Echocardiogram showed increase in RVSP from 39 to 51 mmHg since 11/2015. Ejection fraction 65%. Continue to wean oxygen supplementation to keep saturations greater than 88%. Monitor closely, has required intubation in the past. Continue aerosols and antibiotics. Obtain CT of the chest to rule out central obstructive process. We will continue to follow. 2. New onset atrial fibrillation with RVR See #1. Patient had metoprolol 5 mg IV ?1. She is receiving DVT prophylaxis with SC heparin. Cardiology has been consulted. Patient was started on Amiodarone for her arrhythmia. There are no current plans for ischemic workup as of now, especially with acute infections. 3. Acute cystitis Cultures pending. Patient on appropriate antibiotics. No CVA tenderness. Management per hospitalist. 4. Hyperkalemia/CKD/morbid obesity/peripheral artery occlusive disease/crest variant of scleroderma/HTN/DM/INES/history of cerebral hemorrhage/anemia/stroke/HLD/neuropathic pain/vitamin D deficiency Complicates care, management, recovery, and prognosis. Patient was given Kayexalate in the ER for mild hyperkalemia, plan to recheck his in the a.m. Her renal disease appears to be at baseline. Thank you for the opportunity to participate in this patient's care, please do not hesitate to contact us with any further questions or concerns. This note was generated with [employer] software. It may contain incorrect words, spelling, and punctuation that were not noted in checking the note before signing.
--- NOTE | 2017-11-28 12:40 | CT_ITS ---
STUDY: CT CHEST WITHOUT CONTRAST REASON FOR EXAM: Female, 72 years old. Evaluation of pleural effusion. RADIATION DOSAGE (If Supplied By Facility): CTDIvol = ( 20.66 ) mGy, DLP = ( 753.15 ) mGycm TECHNIQUE: Transaxial imaging was performed without the administration of intravenous contrast material. Multiplanar coronal and sagittal images were reformatted. Individualized dose optimization techniques were used for this CT. COMPARISON: Prior chest radiograph of November 28, 2017. Prior chest CT exam of May 31, 2017 FINDINGS: Moderate increase in the left posterior and basilar pleural effusion which also extends into the oblique fissure. Increasing severe compressive atelectasis of the left lower lobe now including the superior segment. Moderate compressive atelectasis of the lingula. Mild compressive atelectasis of the left upper lobe. Small right pleural effusion and increased atelectatic changes in the posterior right lung base. Stable areas of linear scarring in the right upper lobe. Calcified granuloma of the left hilum. Calcified granuloma of the left lower lobe. Continued cardiomegaly. Small to moderate pericardial effusion Normal mediastinum. Normal hilar regions. Normal unenhanced pulmonary arteries. There is atherosclerotic calcification of the aortic arch with tortuosity and elongation of the aortic arch and descending thoracic aorta. There are multi-level degenerative changes of the thoracic spine. There is no demonstrated abnormality of the visualized upper abdomen. CT/Chest without Contrast IMPRESSION: Moderate increase in the posterior and basilar left pleural effusion which now extends into the oblique fissure with major compressive atelectasis of the left lower lobe now including the superior segment. Moderate compressive atelectasis of the lingula and mild compressive atelectasis of the left upper lobe. Small, primarily subpulmonic effusion of the right chest with increased/mild compressive atelectasis of the right lower lobe. Other stable chronic findings. Continued moderate pericardial effusion and cardiomegaly. Electronically Signed: Florencia Warren MD at 15:58 EST , Service support ,
--- NOTE | 2017-11-28 14:24 | CASEMGMT ---
As per PT/OT, pt needs SNF. SW spoke w/pt and in the room in regard to discharge plan. They are agreeable to TCU. SW inquired about a second choice if there are no beds in TCU. states if there are no beds, he will bring pt home w/home health. SW inquired if he feels he can help pt at home, he states he already does so. SW inquired how pt moved w/PT, pt states it took two people to move her. SW again asked if pt cannot go home what a second choice would be. again states the second choice is home w/home health. Pt has had [facility] in the past. SW asked if he saw pt with PT, he states he did, he feels she is at her baseline and he would be able to help her. SW explained will put her name on the list for TCU, and SW will follow up w/pt and w/TCU on Friday. SW called TCU, put pt's name on the TCU list, will follow up on Friday. PEÑA Rangel, SENIOR LINUX ADMINISTRATOR
--- NOTE | 2017-11-28 15:04 | PCM.PN.CARD ---
Subjectve: The patient remains in the ICU. She remains with intermittent sensations of palpitations in her chest. She has not had any significant change in her respiratory status. Objective: Vital Signs Temp Pulse Resp BP Pulse Ox 97.1 F L 131 H 20 H 119/54 L 99 11/28/17 12:00 11/28/17 14:00 11/28/17 14:00 11/28/17 14:00 11/28/17 14:00 Oxygen Flow Rate 2 Oxygen Delivery Method Nasal Cannula Weight: 214 lb 15.211 oz Body Mass Index (BMI) 35.7 Intake and Output for Last 24 Hours 11/26/17 11/27/17 11/28/17 23:59 23:59 23:59 Intake Total 905 / 905 847 / 847 Output Total 0 / 0 Balance 905 / 905 847 / 847 General: Awake, Alert, Oriented x 3, Cooperative, No Acute Distress Lungs: Rhonchi Cardiovascular: Irregular Rhythm, Normal S1, Normal S2 Abdomen: Bowel Sounds Present, Soft, Non Tender Extremities: Trace RLE Edema, Trace LLE Edema 11/27/17 16:45: Potassium 4.2 11/27/17 16:45: Troponin I 0.03 11/27/17 19:55: Troponin I < 0.02 11/28/17 04:15: WBC 8.7, RBC 2.70 L, Hgb 7.7 L, Hct 26.2 L, MCV 97.0, MCH 28.5, MCHC 29.4 L, RDW 15.7 H, RDW Differential 55.6 H, Plt Count 221, MPV 9.1, Immature Gran % (Auto) 0.200, Neut % (Auto) 75.4 H, Lymph % (Auto) 13.6 L, [place] % (Auto) 8.5, Eos % (Auto) 2.1, Baso % (Auto) 0.2, Absolute Neuts (auto) 6.6, Total Counted Not Reportable 11/28/17 04:15: Sodium 140, Potassium 4.0, Chloride 99, Carbon Dioxide 34.0 H, Anion Gap 7, BUN 60 H, Creatinine 1.88 H, Est GFR (MDRD) Af Amer 34 L, Est GFR (MDRD) Non-Af 28 L, BUN/Creatinine Ratio 31.9 H, Glucose 66 L, Calcium 8.3 L Rhythm: Atrial fibrillation with RVR Assessment/Plan 1. Paroxysmal atrial fibrillation with rapid ventricular response The patient has a history of paroxysmal atrial fibrillation. She has been documenting recurrence of this since being in the hospital. This may be exacerbated based on her underlying noncardiovascular issues including infectious disease issues as well as other noncardiovascular issues including underlying pulmonary issues superimposed upon the patient's history of atrial enlargement and mitral valve disease, etc. At the present time she remains with physical atrial fibrillation with rapid ventricular response. She has been on rate control therapy in the past as well as anticoagulant therapy. He will need to continue rate control therapy. She is being treated with an attempt at antiarrhythmic therapy with IV amiodarone to regain and maintain sinus rhythm. She has been on anticoagulation past. However she is progressively anemic. Thus anticoagulation is on hold. At some point in time the patient may need to be further screened for the possibility of CAD and myocardial ischemia contributing to her symptoms and her findings. However this may have to be postponed until she has improved from a noncardiovascular standpoint with respect to concerns of infectious disease and/or underlying pulmonary disease. 2. Valvular heart disease The patient does have valvular heart disease as previously noted. Certainly this can contribute to concerns with her left atrial size as well as subsequent atrial dysrhythmias. At the present time she will need to continue to be followed by history, exam, and echocardiographic studies. She will need compensatory medical management as best as possible in the interim. 3. Hypertension May be a contributing factor to the patient's atrial dysrhythmia. Thus she will need to continue her antihypertensive therapy as best as possible. 4. Hyperlipidemia The patient will need to continue risk factor modification and lipid-lowering therapy. 5. Diabetes mellitus The patient will continue under the care of internal medicine. 6. Chronic renal insufficiency The patient's renal function will need to be followed during her hospitalization. This may impact medical management. 7. Anemia The patient's H&H has declined. Depending upon her follow-up H&H she should be considered for PRBC transfusions to increase her oxygen carrying capacity. 8. Pulmonary hypertension The patient does have underlying pulmonary hypertension. This may be multifactorial. There may be a combination of her underlying mitral valve disease process associated with this. At the same time this may be predominantly from noncardiac issues such as concerns of her connective tissue disease related issues obstructive sleep apnea issues. This can also impact her atrial dysrhythmia. 9. Obstructive sleep apnea The patient will continue evaluation care per pulmonology. 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 She will need to continue to be followed by her primary care physician and other subspecialists as deemed appropriate. Comment: The above was discussed and reviewed with the patient and the [facility] hospitalist group. This note was generated with [employer] dictation software. It may contain incorrect words, spelling, and punctuation that were not noted in checking the note before signing.
--- NOTE | 2017-11-28 15:08 | PN.CARD_ITS ---
Subjectve: The patient remains in the ICU. She remains with intermittent sensations of palpitations in her chest. She has not had any significant change in her respiratory status. Objective: Vital Signs Temp Pulse Resp BP Pulse Ox 97.1 F L 131 H 20 H 119/54 L 99 11/28/17 12:00 11/28/17 14:00 11/28/17 14:00 11/28/17 14:00 11/28/17 14:00 Oxygen Flow Rate 2 Oxygen Delivery Method Nasal Cannula Weight: 214 lb 15.211 oz Body Mass Index (BMI) 35.7 Intake and Output for Last 24 Hours 11/26/17 11/27/17 11/28/17 23:59 23:59 23:59 Intake Total 905 / 905 847 / 847 Output Total 0 / 0 Balance 905 / 905 847 / 847 General: Awake, Alert, Oriented x 3, Cooperative, No Acute Distress Lungs: Rhonchi Cardiovascular: Irregular Rhythm, Normal S1, Normal S2 Abdomen: Bowel Sounds Present, Soft, Non Tender Extremities: Trace RLE Edema, Trace LLE Edema 11/27/17 16:45: Potassium 4.2 11/27/17 16:45: Troponin I 0.03 11/27/17 19:55: Troponin I < 0.02 11/28/17 04:15: WBC 8.7, RBC 2.70 L, Hgb 7.7 L, Hct 26.2 L, MCV 97.0, MCH 28.5, MCHC 29.4 L, RDW 15.7 H, RDW Differential 55.6 H, Plt Count 221, MPV 9.1, Immature Gran % (Auto) 0.200, Neut % (Auto) 75.4 H, Lymph % (Auto) 13.6 L, [place] % (Auto) 8.5, Eos % (Auto) 2.1, Baso % (Auto) 0.2, Absolute Neuts (auto) 6.6, Total Counted Not Reportable 11/28/17 04:15: Sodium 140, Potassium 4.0, Chloride 99, Carbon Dioxide 34.0 H, Anion Gap 7, BUN 60 H, Creatinine 1.88 H, Est GFR (MDRD) Af Amer 34 L, Est GFR ( MDRD) Non-Af 28 L, BUN/Creatinine Ratio 31.9 H, Glucose 66 L, Calcium 8.3 L Rhythm: Atrial fibrillation with RVR Assessment/Plan 1. Paroxysmal atrial fibrillation with rapid ventricular response The patient has a history of paroxysmal atrial fibrillation. She has been documenting recurrence of this since being in the hospital. This may be exacerbated based on her underlying noncardiovascular issues including infectious disease issues as well as other noncardiovascular issues including underlying pulmonary issues superimposed upon the patient's history of atrial enlargement and mitral valve disease, etc. At the present time she remains with physical atrial fibrillation with rapid ventricular response. She has been on rate control therapy in the past as well as anticoagulant therapy. He will need to continue rate control therapy. She is being treated with an attempt at antiarrhythmic therapy with IV amiodarone to regain and maintain sinus rhythm. She has been on anticoagulation past. However she is progressively anemic. Thus anticoagulation is on hold. At some point in time the patient may need to be further screened for the possibility of CAD and myocardial ischemia contributing to her symptoms and her findings. However this may have to be postponed until she has improved from a noncardiovascular standpoint with respect to concerns of infectious disease and/ or underlying pulmonary disease. 2. Valvular heart disease The patient does have valvular heart disease as previously noted. Certainly this can contribute to concerns with her left atrial size as well as subsequent atrial dysrhythmias. At the present time she will need to continue to be followed by history, exam, and echocardiographic studies. She will need compensatory medical management as best as possible in the interim. 3. Hypertension May be a contributing factor to the patient's atrial dysrhythmia. Thus she will need to continue her antihypertensive therapy as best as possible. 4. Hyperlipidemia The patient will need to continue risk factor modification and lipid-lowering therapy. 5. Diabetes mellitus The patient will continue under the care of internal medicine. 6. Chronic renal insufficiency The patient's renal function will need to be followed during her hospitalization. This may impact medical management. 7. Anemia The patient's H&H has declined. Depending upon her follow-up H&H she should be considered for PRBC transfusions to increase her oxygen carrying capacity. 8. Pulmonary hypertension The patient does have underlying pulmonary hypertension. This may be multifactorial. There may be a combination of her underlying mitral valve disease process associated with this. At the same time this may be predominantly from noncardiac issues such as concerns of her connective tissue disease related issues obstructive sleep apnea issues. This can also impact her atrial dysrhythmia. 9. Obstructive sleep apnea The patient will continue evaluation care per pulmonology. 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 She will need to continue to be followed by her primary care physician and other subspecialists as deemed appropriate. Comment: The above was discussed and reviewed with the patient and the [facility] hospitalist group. This note was generated with [employer] dictation software. It may contain incorrect words, spelling, and punctuation that were not noted in checking the note before signing.
--- NOTE | 2017-11-28 16:04 | CPS ---
Patient's home settings entered into bipap
[2017-11-28 17:21] LABS: Bedside Glucose 243 mg/dL (70-110)
[2017-11-28] MEDS: Atorvastatin Calcium 40 MG Tablet PO (21:26)
[2017-11-28] MEDS: Metoprolol Tartrate 50 MG Tablet PO (21:26)
[2017-11-28] MEDS: Gabapentin 300 MG Capsule PO (21:26)
[2017-11-28 21:36] LABS: Bedside Glucose 246 mg/dL (70-110)
[2017-11-29] VITALS (41 sets, daily range): BP systolic 106–163; BP diastolic 54–90; PULSE 54–67; RESP 10–28; TEMP 36.2–36.8; O2SAT 89–97
[2017-11-29] MEDS: Ipratropium/Albuterol Sulfate 3 ML AMPUL.NEB INHALATION ×4 (01:15→19:25)
[2017-11-29] MEDS: Piperacil/Tazobactam 3.375 GM/50 ML ML IV ×3 (05:10→22:55)
[2017-11-29 06:14] LABS: Absolute Lymphocyte Count 1.12 X10^3/ul (0.83-4.51); Absolute Neutrophil Count 6.7 X10^3/uL (2.0-7.7); Basophil# 0.02 X10^3/uL; Basophil% 0.2 % (0-1); Eosinophil# 0.19 X10^3/uL; Eosinophils% 2.2 % (0-5); Hematocrit 26.2 % (37-47); Hemoglobin 7.5 g/dl (12.0-15.0); Lymphocyte # 1.12 X10^3/ul (4.0); Lymphocyte % 12.9 % (19-41); Mean Corp Hgb Conc 28.6 g/gl (32-36); Mean Corpuscular Hgb 27.9 pg (27.0-32.0); Mean Corpuscular Volume 97.4 fL (81-99); Mean Platelet Vol. 9.2 fl (6.2-12.0); Monocyte% 6.9 % (0-10); Neutrophil # 6.73 X10^3/uL (2.7-7.7); Neutrophil % 77.6 % (47-70); Platelet Count 267 K/mm3 (150-450); RBC Distribution Width CV 15.9 % (11.6-14.6); RBC Distribution Width SD 55.9 fl (35.1-43.9); Red Blood Count 2.69 M/mm3 (4.2-5.4); White Blood Count 8.7 K/mm3 (4.4-11.0)
[2017-11-29 06:16] LABS: POSITIVE COUNT NO; POSITIVE DIFFERENTIAL NO; POSITIVE MORPHOLOGY NO
[2017-11-29] MEDS: cloNIDine HCl 0.1 MG Tablet PO ×3 (06:45→22:51)
[2017-11-29 06:57] LABS: Anion Gap 8 (5-15); BUN 66 mg/dL (7-18); BUN/Creat Ratio 30.6 RATIO (10-20); Calcium,Total 8.4 mg/dL (8.5-10.1); Chloride 98 mmol/L (98-107); Creatinine, Serum 2.16 mg/dL (0.55-1.02); EST Glomerular Filtration Rate 24 mL/min (>60); Est Glom Filt Rate - Afr Amer 29 mL/min (>60); Estimated Creatinine Clearance 21.81 ml/min; Glucose 41 mg/dL (74-106); Potassium 4.6 mmol/L (3.5-5.1); Sodium Level 139 mmol/L (136-145)
--- NOTE | 2017-11-29 07:04 | NURSING ---
blood sugar 33, given 4oz of orange juice at 0645. recheck at 0700 67. given an additional 4oz orange juice. will recheck blood sugar at 0715. breakfast tray is ordered.
[2017-11-29 07:30] LABS: Bedside Glucose 33 mg/dL (70-110)
[2017-11-29 07:30] LABS: Bedside Glucose 67 mg/dL (70-110)
[2017-11-29 07:30] LABS: Bedside Glucose 73 mg/dL (70-110)
--- NOTE | 2017-11-29 07:53 | PCM.PROGNOTE ---
Patient Problems: Active and Suspected Problems (Last Updated 11/27/17 @ 08:28 by Fahad Sesay MD) Paroxysmal A-fib (Acute) Subjective: Chief complaint: Follow-up after admission for questionable community-acquired pneumonia, left pleural effusion, acute on chronic hypoxic respiratory failure, acute cystitis, new onset A. fib and mild hyperkalemia. Patient seen and examined. No acute events overnight. This morning, she complained of abdominal pain across to her abdomen and she attributed it to coughing. Shortness of breath has been improving. Denied nausea or vomiting. Denies fever chills. She is having minimal cough, no sputum production. She has been in sinus rhythm, blood pressure noted are stable, pulse ox is 96% on 2 L. - Physical Exam General: Alert, Oriented x3, Cooperative, - - Minimal shortness of breath. HEENT: Atraumatic, PERRLA, EOMI Oral: Moist Mucosa, No Gingival or Mucosal Lesions/ Ulcerations Neck: Supple, No JVD, Negative Carotid Bruits, Thyroid Normal Size and Texture Lungs: No wheeze, Diminished, Rhonchi, Short of Breath, - - Markedly decreased breath sounds on the left base, scattered rhonchi. Cardiovascular: Regular rate, Regular Rhythm, Normal S1, Normal S2, PMI Normal Abdomen: Bowel Sounds Present, Soft, Non Tender, Non-Distended, No Hepato-splenomegaly Extremities: No clubbing, No cyanosis, No edema Skin: No rashes, No breakdown Lymphatic: No Cervical, Supraclavicular, or Inguinal Adenopathy Neurological: Cranial nerves II-XII grossly intact, Neuro grossly intact Psych/Mental Status: Normal Affect, Appropriate Vital Signs Temp Pulse Resp BP Pulse Ox 97.9 F 61 20 H 123/61 H 96 11/29/17 07:35 11/29/17 07:35 11/29/17 07:35 11/29/17 07:35 11/29/17 07:35 Oxygen Flow Rate 2 Oxygen Delivery Method Nasal Cannula Weight: 214 lb 15.211 oz Body Mass Index (BMI) 35.7 Intake and Output for Last 24 Hours 11/27/17 11/28/17 11/29/17 23:59 23:59 23:59 Intake Total 905 / 905 1051 / 1051 323.3 / 323.3 Output Total 0 / 0 150 / 150 300 / 300 Balance 905 / 905 901 / 901 23.3 / 23.3 Laboratory Tests Past 24 Hrs 11/29/17 11/29/17 05:24 05:24 WBC 8.7 RBC 2.69 L Hgb 7.5 L Hct 26.2 L MCV 97.4 MCH 27.9 MCHC 28.6 L RDW 15.9 H RDW Differential 55.9 H Plt Count 267 MPV 9.2 Immature Gran % (Auto) 0.200 Neut % (Auto) 77.6 H Lymph % (Auto) 12.9 L [place] % (Auto) 6.9 Eos % (Auto) 2.2 Baso % (Auto) 0.2 Absolute Neuts (auto) 6.7 Absolute Lymphs (auto) 1.12 Total Counted Not Reportable Sodium 139 Potassium 4.6 Chloride 98 Carbon Dioxide 33.0 H Anion Gap 8 BUN 66 H Creatinine 2.16 H Estim Creat Clear Calc 21.81 Est GFR (MDRD) Af Amer 29 L Est GFR (MDRD) Non-Af 24 L BUN/Creatinine Ratio 30.6 H Glucose 41 L* Calcium 8.4 L POC Glucose 11/29/17 11/29/17 11/29/17 07:22 07:01 06:40 POC Glucose 73 67 L 33 L* 11/28/17 11/28/17 11/28/17 21:23 17:14 11:35 POC Glucose 246 H 243 H 238 H Clinical Impression(s) from Imaging Studies Chest X-Ray 11/28/17 05:55 IMPRESSION: Persistent consolidation in the left lower lobe although there is slight improvement in the aeration of the left lower lobe. Blunting of the right costophrenic angle with mild increased markings at the right lung base. Electronically Signed: Brett Arcos MD at 9:06 EST Tel [phone], Service support , Chest CT 11/28/17 12:40 IMPRESSION: Moderate increase in the posterior and basilar left pleural effusion which now extends into the oblique fissure with major compressive atelectasis of the left lower lobe now including the superior segment. Moderate compressive atelectasis of the lingula and mild compressive atelectasis of the left upper lobe. Small, primarily subpulmonic effusion of the right chest with increased/mild compressive atelectasis of the right lower lobe. Other stable chronic findings. Continued moderate pericardial effusion and cardiomegaly. Electronically Signed: Florencia Warren MD at 15:58 EST , Service support , Assessment/Plan Active and Suspected Problems (Last Updated 11/27/17 @ 08:28 by Fahad Sesay MD) Paroxysmal A-fib (Acute) This is a 72 years old female patient presented to the emergency department because of left-sided pleuritic chest pain, found to have left-sided pleural effusion, suspected community-acquired pneumonia, hyperkalemia, acute cystitis, acute on chronic hypoxic respiratory failure and shortly after admission, she developed A. fib with RVR. #1 Questionable left lung community-acquired pneumonia: Remained on empiric IV Zosyn and Levaquin. She remained afebrile, white blood cell count is back to normal. Pneumococcal and Legionella antigen were negative. Nasal swab for influenza a and B were negative. Blood cultures pending. Urine culture revealed Klebsiella pneumonia. Plan to continue same treatment. #2 Moderate left pleural effusion/small right pleural effusion: Diagnostic and therapeutic left thoracentesis canceled because of no large amount of pleural fluid on ultrasound chest. CT scan chest done yesterday, revealed moderate left pleural effusion with left lung compressive atelectasis, small right pleural effusion. Plan as above. #3 acute on chronic hypoxic respiratory failure: Her symptoms improved, less short of breath, she is down to 2 L of oxygen, she has been at 3.5 L at home. Patient has been on oxygen since July, for chronic respiratory failure. #4 Klebsiella pneumoniae acute cystitis: on IV Zosyn and Levaquin. Urine cultures revealed Klebsiella pneumonia. She is afebrile, leukocytosis resolved. #5 new onset A. fib with RVR: He is on IV amiodarone drip. This morning, she has been in sinus rhythm, heart rate stable, blood pressure stable. 2D echocardiogram revealed a fraction of 65%, other findings reviewed. Her potassium, sodium and magnesium were normal. TSH was normal. Troponin was negative ?2. Cardiology on the case. #7 acute on chronic anemia: Her baseline hemoglobin has been around 9-11 g/dL. Admission hemoglobin was 8.2 g/dL, came down to 7.5 g/dL today. No evidence of active bleeding. Plan: Transfuse 1 unit of packed RBCs. #8 mild hyperkalemia: Without EKG changes. Potassium is back to normal. Today's creatinine is 2.16, slightly worsened. #9 stage III chronic kidney disease: Creatinine is around 1.4-2 mg/dL. Admission creatinine is 1.92, today's creatinine is 2.16, has been trending up. #10 type 2 diabetes mellitus: Blood sugar stable, continue ADA diet, Accu-Cheks, insulin sliding scale, continue home doses of Levemir insulin twice daily. #11 hypertension: Blood pressure stable, continue clonidine and metoprolol. #12 DVT prophylaxis: Subcu heparin. Other chronic medical problems: #1 chronic anemia. #2 Crest variant of scleroderma. #3 peripheral vascular disease. #4 obstructive sleep apnea. #5 history of stroke. #6 morbid obesity. #7 history of cerebral bleed status post craniectomy. This note was generated with [employer] dictation software. It may contain incorrect words, spelling, and punctuation that were not noted in checking the note before signing. Code Visit Inpatient E&M: 44830 Subs Hosp L2
--- NOTE | 2017-11-29 08:02 | PN_ITS ---
Patient Problems: Active and Suspected Problems (Last Updated 11/27/17 @ 08:28 by Fahad Sesay MD) Paroxysmal A-fib (Acute) Subjective: Chief complaint: Follow-up after admission for questionable community-acquired pneumonia, left pleural effusion, acute on chronic hypoxic respiratory failure, acute cystitis, new onset A. fib and mild hyperkalemia. Patient seen and examined. No acute events overnight. This morning, she complained of abdominal pain across to her abdomen and she attributed it to coughing. Shortness of breath has been improving. Denied nausea or vomiting. Denies fever chills. She is having minimal cough, no sputum production. She has been in sinus rhythm, blood pressure noted are stable, pulse ox is 96% on 2 L. - Physical Exam General: Alert, Oriented x3, Cooperative, - - Minimal shortness of breath. HEENT: Atraumatic, PERRLA, EOMI Oral: Moist Mucosa, No Gingival or Mucosal Lesions/ Ulcerations Neck: Supple, No JVD, Negative Carotid Bruits, Thyroid Normal Size and Texture Lungs: No wheeze, Diminished, Rhonchi, Short of Breath, - - Markedly decreased breath sounds on the left base, scattered rhonchi. Cardiovascular: Regular rate, Regular Rhythm, Normal S1, Normal S2, PMI Normal Abdomen: Bowel Sounds Present, Soft, Non Tender, Non-Distended, No Hepato- splenomegaly Extremities: No clubbing, No cyanosis, No edema Skin: No rashes, No breakdown Lymphatic: No Cervical, Supraclavicular, or Inguinal Adenopathy Neurological: Cranial nerves II-XII grossly intact, Neuro grossly intact Psych/Mental Status: Normal Affect, Appropriate Vital Signs Temp Pulse Resp BP Pulse Ox 97.9 F 61 20 H 123/61 H 96 11/29/17 07:35 11/29/17 07:35 11/29/17 07:35 11/29/17 07:35 11/29/17 07:35 Oxygen Flow Rate 2 Oxygen Delivery Method Nasal Cannula Weight: 214 lb 15.211 oz Body Mass Index (BMI) 35.7 Intake and Output for Last 24 Hours 11/27/17 11/28/17 11/29/17 23:59 23:59 23:59 Intake Total 905 / 905 1051 / 1051 323.3 / 323.3 Output Total 0 / 0 150 / 150 300 / 300 Balance 905 / 905 901 / 901 23.3 / 23.3 Laboratory Tests Past 24 Hrs 11/29/17 11/29/17 05:24 05:24 WBC 8.7 RBC 2.69 L Hgb 7.5 L Hct 26.2 L MCV 97.4 MCH 27.9 MCHC 28.6 L RDW 15.9 H RDW Differential 55.9 H Plt Count 267 MPV 9.2 Immature Gran % (Auto) 0.200 Neut % (Auto) 77.6 H Lymph % (Auto) 12.9 L [place] % (Auto) 6.9 Eos % (Auto) 2.2 Baso % (Auto) 0.2 Absolute Neuts (auto) 6.7 Absolute Lymphs (auto) 1.12 Total Counted Not Reportable Sodium 139 Potassium 4.6 Chloride 98 Carbon Dioxide 33.0 H Anion Gap 8 BUN 66 H Creatinine 2.16 H Estim Creat Clear Calc 21.81 Est GFR (MDRD) Af Amer 29 L Est GFR (MDRD) Non-Af 24 L BUN/Creatinine Ratio 30.6 H Glucose 41 L* Calcium 8.4 L POC Glucose 11/29/17 11/29/17 11/29/17 07:22 07:01 06:40 POC Glucose 73 67 L 33 L* 11/28/17 11/28/17 11/28/17 21:23 17:14 11:35 POC Glucose 246 H 243 H 238 H Clinical Impression(s) from Imaging Studies Chest X-Ray 11/28/17 05:55 IMPRESSION: Persistent consolidation in the left lower lobe although there is slight improvement in the aeration of the left lower lobe. Blunting of the right costophrenic angle with mild increased markings at the right lung base. Electronically Signed: Brett Arcos MD at 9:06 EST Tel [phone], Service support , Chest CT 11/28/17 12:40 IMPRESSION: Moderate increase in the posterior and basilar left pleural effusion which now extends into the oblique fissure with major compressive atelectasis of the left lower lobe now including the superior segment. Moderate compressive atelectasis of the lingula and mild compressive atelectasis of the left upper lobe. Small, primarily subpulmonic effusion of the right chest with increased/mild compressive atelectasis of the right lower lobe. Other stable chronic findings. Continued moderate pericardial effusion and cardiomegaly. Electronically Signed: Florencia Warren MD at 15:58 EST , Service support , Assessment/Plan Active and Suspected Problems (Last Updated 11/27/17 @ 08:28 by Fahad Sesay MD) Paroxysmal A-fib (Acute) This is a 72 years old female patient presented to the emergency department because of left-sided pleuritic chest pain, found to have left-sided pleural effusion, suspected community-acquired pneumonia, hyperkalemia, acute cystitis, acute on chronic hypoxic respiratory failure and shortly after admission, she developed A. fib with RVR. #1 Questionable left lung community-acquired pneumonia: Remained on empiric IV Zosyn and Levaquin. She remained afebrile, white blood cell count is back to normal. Pneumococcal and Legionella antigen were negative. Nasal swab for influenza a and B were negative. Blood cultures pending. Urine culture revealed Klebsiella pneumonia. Plan to continue same treatment. #2 Moderate left pleural effusion/small right pleural effusion: Diagnostic and therapeutic left thoracentesis canceled because of no large amount of pleural fluid on ultrasound chest. CT scan chest done yesterday, revealed moderate left pleural effusion with left lung compressive atelectasis, small right pleural effusion. Plan as above. #3 acute on chronic hypoxic respiratory failure: Her symptoms improved, less short of breath, she is down to 2 L of oxygen, she has been at 3.5 L at home. Patient has been on oxygen since July, for chronic respiratory failure. #4 Klebsiella pneumoniae acute cystitis: on IV Zosyn and Levaquin. Urine cultures revealed Klebsiella pneumonia. She is afebrile, leukocytosis resolved. #5 new onset A. fib with RVR: He is on IV amiodarone drip. This morning, she has been in sinus rhythm, heart rate stable, blood pressure stable. 2D echocardiogram revealed a fraction of 65%, other findings reviewed. Her potassium, sodium and magnesium were normal. TSH was normal. Troponin was negative ?2. Cardiology on the case. #7 acute on chronic anemia: Her baseline hemoglobin has been around 9-11 g/dL. Admission hemoglobin was 8.2 g/dL, came down to 7.5 g/dL today. No evidence of active bleeding. Plan: Transfuse 1 unit of packed RBCs. #8 mild hyperkalemia: Without EKG changes. Potassium is back to normal. Today' s creatinine is 2.16, slightly worsened. #9 stage III chronic kidney disease: Creatinine is around 1.4-2 mg/dL. Admission creatinine is 1.92, today's creatinine is 2.16, has been trending up. #10 type 2 diabetes mellitus: Blood sugar stable, continue ADA diet, Accu-Cheks , insulin sliding scale, continue home doses of Levemir insulin twice daily. #11 hypertension: Blood pressure stable, continue clonidine and metoprolol. #12 DVT prophylaxis: Subcu heparin. Other chronic medical problems: #1 chronic anemia. #2 Crest variant of scleroderma. #3 peripheral vascular disease. #4 obstructive sleep apnea. #5 history of stroke. #6 morbid obesity. #7 history of cerebral bleed status post craniectomy. This note was generated with [employer] dictation software. It may contain incorrect words, spelling, and punctuation that were not noted in checking the note before signing. Code Visit Inpatient E&M: 88910 Subs Hosp L2
--- NOTE | 2017-11-29 08:14 | PCM.PROGNOTE ---
Patient Problems: Active and Suspected Problems (Last Updated 11/27/17 @ 08:28 by Fahad Sesay MD) Paroxysmal A-fib (Acute) Subjective: Patient did okay overnight on BiPAP therapy. Patient states that she feels terrible this morning, but was found to have a blood sugar of 41 on BMP. Patient is denying any obvious dyspnea, but states an overwhelming sense of not feeling well. No pain is reported. Objective: Chest CT was personally reviewed. This did show left pleural effusion with associated atelectasis and pericardial effusion. - Physical Exam General: Alert, Oriented x3, Cooperative, No apparent distress HEENT: Atraumatic, PERRLA, EOMI, Normocephalic, - - No scleral icterus or injection noted. Oral: Moist Mucosa, No Gingival or Mucosal Lesions/ Ulcerations Neck: Supple, No JVD, No Nodes, Trachea Midline Lungs: No wheeze, No rales, Diminished, Rhonchi - Left base, - - Slight dullness to percussion at the left base Cardiovascular: Normal S1, Normal S2, No murmurs, Irregular Rate, No rub noted, No Gallop Abdomen: Bowel Sounds Present, Soft, Non Tender, Non-Distended, Obese Extremities: No cyanosis, Capillary Refill Less than 3 Seconds, Edema - Trace lower extremity Skin: - - No significant change compared to previous Musculoskeletal: No Tenderness to Palpation of Joints or Extremities, No Muscle Wasting Lymphatic: No Cervical, Supraclavicular, or Inguinal Adenopathy Neurological: Cranial nerves II-XII grossly intact, Neuro grossly intact, Motor Exam 5/5 strength throughout Psych/Mental Status: Anxious, Flat Affect, Restless Vital Signs Temp Pulse Resp BP Pulse Ox 36.6 C 61 20 H 123/61 H 96 11/29/17 07:35 11/29/17 07:35 11/29/17 07:35 11/29/17 07:35 11/29/17 07:35 Oxygen Flow Rate 2 Oxygen Delivery Method Nasal Cannula Weight: 97.5 kg Body Mass Index (BMI) 35.7 Intake and Output for Last 24 Hours 11/27/17 11/28/17 11/29/17 23:59 23:59 23:59 Intake Total 905 / 905 1051 / 1051 323.3 / 323.3 Output Total 0 / 0 150 / 150 300 / 300 Balance 905 / 905 901 / 901 23.3 / 23.3 Laboratory Tests Past 24 Hrs 11/29/17 11/29/17 05:24 05:24 WBC 8.7 RBC 2.69 L Hgb 7.5 L Hct 26.2 L MCV 97.4 MCH 27.9 MCHC 28.6 L RDW 15.9 H RDW Differential 55.9 H Plt Count 267 MPV 9.2 Immature Gran % (Auto) 0.200 Neut % (Auto) 77.6 H Lymph % (Auto) 12.9 L [place] % (Auto) 6.9 Eos % (Auto) 2.2 Baso % (Auto) 0.2 Absolute Neuts (auto) 6.7 Absolute Lymphs (auto) 1.12 Total Counted Not Reportable Sodium 139 Potassium 4.6 Chloride 98 Carbon Dioxide 33.0 H Anion Gap 8 BUN 66 H Creatinine 2.16 H Estim Creat Clear Calc 21.81 Est GFR (MDRD) Af Amer 29 L Est GFR (MDRD) Non-Af 24 L BUN/Creatinine Ratio 30.6 H Glucose 41 L* Calcium 8.4 L POC Glucose 11/29/17 11/29/17 11/29/17 07:22 07:01 06:40 POC Glucose 73 67 L 33 L* 11/28/17 11/28/17 11/28/17 21:23 17:14 11:35 POC Glucose 246 H 243 H 238 H Clinical Impression(s) from Imaging Studies Chest X-Ray 11/28/17 05:55 IMPRESSION: Persistent consolidation in the left lower lobe although there is slight improvement in the aeration of the left lower lobe. Blunting of the right costophrenic angle with mild increased markings at the right lung base. Electronically Signed: Brett Arcos MD at 9:06 EST Tel [phone], Service support , Chest CT 11/28/17 12:40 IMPRESSION: Moderate increase in the posterior and basilar left pleural effusion which now extends into the oblique fissure with major compressive atelectasis of the left lower lobe now including the superior segment. Moderate compressive atelectasis of the lingula and mild compressive atelectasis of the left upper lobe. Small, primarily subpulmonic effusion of the right chest with increased/mild compressive atelectasis of the right lower lobe. Other stable chronic findings. Continued moderate pericardial effusion and cardiomegaly. Electronically Signed: Florencia Warren MD at 15:58 EST , Service support , Assessment/Plan Active and Suspected Problems (Last Updated 11/27/17 @ 08:28 by Fahad Sesay MD) Paroxysmal A-fib (Acute) RECOMMENDATIONS 1. Wean oxygen supplementation to keep saturations 88-92%. 2. Encourage incentive spirometer 3. Increase activity as tolerated 4. Continue aerosols and antibiotics 5. Cardiology following 6. Consider decrease in Levemir therapy IMPRESSIONS 1. 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 This may be the etiology of patient's initial increase in FiO2 requirements. Patient had significant dyspnea yesterday and does report some improvement today with improved heart rate control. Would be interested in seeing how well patient feels once blood sugars have been normalized. If feeling well from a respiratory standpoint, patient can likely be discharged with routine follow-up from a pulmonary perspective. If continues to have symptoms, patient may require diuretic therapy. Patient would likely be better served with BiPAP therapy as an outpatient. This would be arranged on follow-up and will likely require a repeat sleep study. 2. New onset atrial fibrillation with RVR Cardiology following. Patient remains in atrial fibrillation and does have a pericardial effusion. Heart rate is much better controlled today. Would be interested to see if patient has improvement in dyspnea on exertion with better control of heart rate. This does complicate patient's pulmonary management. 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 3. Acute cystitis Klebsiella pneumonia has been isolated. Patient on appropriate antibiotics. No CVA tenderness. Management per hospitalist. 4. Hyperkalemia/CKD/morbid obesity/peripheral artery occlusive disease/crest variant of scleroderma/HTN/DM/INES/history of cerebral hemorrhage/anemia/stroke/HLD/neuropathic pain/vitamin D deficiency Complicates care, management, recovery, and prognosis. Patient was given Kayexalate in the ER for mild hyperkalemia, plan to recheck his in the a.m. Her renal disease appears to be at baseline. Thank you for the opportunity to participate in this patient's care, please do not hesitate to contact us with any further questions or concerns. This note was generated with [employer] software. It may contain incorrect words, spelling, and punctuation that were not noted in checking the note before signing. Code Visit Inpatient E&M: 75207 Subs Hosp L3
--- NOTE | 2017-11-29 08:23 | PN_ITS ---
Patient Problems: Active and Suspected Problems (Last Updated 11/27/17 @ 08:28 by Fahad Sesay MD) Paroxysmal A-fib (Acute) Subjective: Patient did okay overnight on BiPAP therapy. Patient states that she feels terrible this morning, but was found to have a blood sugar of 41 on BMP. Patient is denying any obvious dyspnea, but states an overwhelming sense of not feeling well. No pain is reported. Objective: Chest CT was personally reviewed. This did show left pleural effusion with associated atelectasis and pericardial effusion. - Physical Exam General: Alert, Oriented x3, Cooperative, No apparent distress HEENT: Atraumatic, PERRLA, EOMI, Normocephalic, - - No scleral icterus or injection noted. Oral: Moist Mucosa, No Gingival or Mucosal Lesions/ Ulcerations Neck: Supple, No JVD, No Nodes, Trachea Midline Lungs: No wheeze, No rales, Diminished, Rhonchi - Left base, - - Slight dullness to percussion at the left base Cardiovascular: Normal S1, Normal S2, No murmurs, Irregular Rate, No rub noted, No Gallop Abdomen: Bowel Sounds Present, Soft, Non Tender, Non-Distended, Obese Extremities: No cyanosis, Capillary Refill Less than 3 Seconds, Edema - Trace lower extremity Skin: - - No significant change compared to previous Musculoskeletal: No Tenderness to Palpation of Joints or Extremities, No Muscle Wasting Lymphatic: No Cervical, Supraclavicular, or Inguinal Adenopathy Neurological: Cranial nerves II-XII grossly intact, Neuro grossly intact, Motor Exam 5/5 strength throughout Psych/Mental Status: Anxious, Flat Affect, Restless Vital Signs Temp Pulse Resp BP Pulse Ox 36.6 C 61 20 H 123/61 H 96 11/29/17 07:35 11/29/17 07:35 11/29/17 07:35 11/29/17 07:35 11/29/17 07:35 Oxygen Flow Rate 2 Oxygen Delivery Method Nasal Cannula Weight: 97.5 kg Body Mass Index (BMI) 35.7 Intake and Output for Last 24 Hours 11/27/17 11/28/17 11/29/17 23:59 23:59 23:59 Intake Total 905 / 905 1051 / 1051 323.3 / 323.3 Output Total 0 / 0 150 / 150 300 / 300 Balance 905 / 905 901 / 901 23.3 / 23.3 Laboratory Tests Past 24 Hrs 11/29/17 11/29/17 05:24 05:24 WBC 8.7 RBC 2.69 L Hgb 7.5 L Hct 26.2 L MCV 97.4 MCH 27.9 MCHC 28.6 L RDW 15.9 H RDW Differential 55.9 H Plt Count 267 MPV 9.2 Immature Gran % (Auto) 0.200 Neut % (Auto) 77.6 H Lymph % (Auto) 12.9 L [place] % (Auto) 6.9 Eos % (Auto) 2.2 Baso % (Auto) 0.2 Absolute Neuts (auto) 6.7 Absolute Lymphs (auto) 1.12 Total Counted Not Reportable Sodium 139 Potassium 4.6 Chloride 98 Carbon Dioxide 33.0 H Anion Gap 8 BUN 66 H Creatinine 2.16 H Estim Creat Clear Calc 21.81 Est GFR (MDRD) Af Amer 29 L Est GFR (MDRD) Non-Af 24 L BUN/Creatinine Ratio 30.6 H Glucose 41 L* Calcium 8.4 L POC Glucose 11/29/17 11/29/17 11/29/17 07:22 07:01 06:40 POC Glucose 73 67 L 33 L* 11/28/17 11/28/17 11/28/17 21:23 17:14 11:35 POC Glucose 246 H 243 H 238 H Clinical Impression(s) from Imaging Studies Chest X-Ray 11/28/17 05:55 IMPRESSION: Persistent consolidation in the left lower lobe although there is slight improvement in the aeration of the left lower lobe. Blunting of the right costophrenic angle with mild increased markings at the right lung base. Electronically Signed: Brett Arcos MD at 9:06 EST Tel [phone], Service support , Chest CT 11/28/17 12:40 IMPRESSION: Moderate increase in the posterior and basilar left pleural effusion which now extends into the oblique fissure with major compressive atelectasis of the left lower lobe now including the superior segment. Moderate compressive atelectasis of the lingula and mild compressive atelectasis of the left upper lobe. Small, primarily subpulmonic effusion of the right chest with increased/mild compressive atelectasis of the right lower lobe. Other stable chronic findings. Continued moderate pericardial effusion and cardiomegaly. Electronically Signed: Florencia Warren MD at 15:58 EST , Service support , Assessment/Plan Active and Suspected Problems (Last Updated 11/27/17 @ 08:28 by Fahad Sesay MD) Paroxysmal A-fib (Acute) RECOMMENDATIONS 1. Wean oxygen supplementation to keep saturations 88-92%. 2. Encourage incentive spirometer 3. Increase activity as tolerated 4. Continue aerosols and antibiotics 5. Cardiology following 6. Consider decrease in Levemir therapy IMPRESSIONS 1. 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 This may be the etiology of patient's initial increase in FiO2 requirements. Patient had significant dyspnea yesterday and does report some improvement today with improved heart rate control. Would be interested in seeing how well patient feels once blood sugars have been normalized. If feeling well from a respiratory standpoint, patient can likely be discharged with routine follow-up from a pulmonary perspective. If continues to have symptoms, patient may require diuretic therapy. Patient would likely be better served with BiPAP therapy as an outpatient. This would be arranged on follow- up and will likely require a repeat sleep study. 2. New onset atrial fibrillation with RVR Cardiology following. Patient remains in atrial fibrillation and does have a pericardial effusion. Heart rate is much better controlled today. Would be interested to see if patient has improvement in dyspnea on exertion with better control of heart rate. This does complicate patient's pulmonary management. 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 3. Acute cystitis Klebsiella pneumonia has been isolated. Patient on appropriate antibiotics. No CVA tenderness. Management per hospitalist. 4. Hyperkalemia/CKD/morbid obesity/peripheral artery occlusive disease/ crest variant of scleroderma/HTN/DM/INES/history of cerebral hemorrhage/anemia/ stroke/HLD/neuropathic pain/vitamin D deficiency Complicates care, management, recovery, and prognosis. Patient was given Kayexalate in the ER for mild hyperkalemia, plan to recheck his in the a.m. Her renal disease appears to be at baseline. Thank you for the opportunity to participate in this patient's care, please do not hesitate to contact us with any further questions or concerns. This note was generated with [employer] software. It may contain incorrect words, spelling, and punctuation that were not noted in checking the note before signing. Code Visit Inpatient E&M: 08291 Subs Hosp L3
[2017-11-29] MEDS: Pantoprazole Sodium 40 MG Tablet PO (09:41)
[2017-11-29] MEDS: Metoprolol Tartrate 50 MG Tablet PO ×2 (09:42→22:51)
[2017-11-29] MEDS: Iron Polysaccharide Complex 150 MG CAPSULE PO (09:43)
[2017-11-29] MEDS: Heparin Injection 5,000 UNITS/ML Syringe 5000 UNITS SC ×2 (09:43→22:50)
[2017-11-29] MEDS: oxyCODONE 5 MG Tablet PO ×2 (09:53→17:58)
--- NOTE | 2017-11-29 09:57 | PCM.PN.CARD ---
Subjectve: Patient somewhat debilitated, having difficulty walking with a walker. EKG showed atrial fibrillation with RVR however telemetry shows normal sinus rhythm this morning. Patient had atrial fibrillation in the past and was placed on Coumadin therapy but developed a brain hemorrhage approximately 1 year ago with Coumadin therapy. This required a craniotomy. Currently on IV amiodarone drip and doing well. CT scan reviewed which showed what appears to be a possibly loculated left pleural effusion, no plans for thoracentesis at this time. Recent echocardiogram did not show any significant pericardial effusion. Objective: Vital Signs Temp Pulse Resp BP Pulse Ox 97.9 F 63 20 H 126/62 H 96 11/29/17 07:35 11/29/17 09:42 11/29/17 07:35 11/29/17 09:42 11/29/17 07:35 Oxygen Flow Rate 2 Oxygen Delivery Method Nasal Cannula Weight: 214 lb 15.211 oz Body Mass Index (BMI) 35.7 Intake and Output for Last 24 Hours 11/27/17 11/28/17 11/29/17 23:59 23:59 23:59 Intake Total 905 / 905 1051 / 1051 323.3 / 323.3 Output Total 0 / 0 150 / 150 300 / 300 Balance 905 / 905 901 / 901 23.3 / 23.3 General: Awake, Alert, Oriented x 3 HEENT: PERRL, EOMI, Sclera Non Icteric Neck: Supple, Good ROM, No Lymph Node Enlargement Lungs: Diminished Left Base Cardiovascular: Regular Rhythm, Normal S1, Normal S2, No Murmurs, No Rubs, No Gallops Vascular: No Carotid Bruits, Normal Femoral Pulses, Normal Radial Pulses, Normal Dorsalis Pedal Pulse, Normal Posterior Tibial Pulses Abdomen: Bowel Sounds Present, Soft, Non Tender, No HSM, No Organomegaly Extremities: No Cyanosis, No Clubbing, No edema Neurological: No Focal Motor or Sensory Deficit 11/29/17 05:24: WBC 8.7, RBC 2.69 L, Hgb 7.5 L, Hct 26.2 L, MCV 97.4, MCH 27.9, MCHC 28.6 L, RDW 15.9 H, RDW Differential 55.9 H, Plt Count 267, MPV 9.2, Immature Gran % (Auto) 0.200, Neut % (Auto) 77.6 H, Lymph % (Auto) 12.9 L, [place] % (Auto) 6.9, Eos % (Auto) 2.2, Baso % (Auto) 0.2, Absolute Neuts (auto) 6.7, Total Counted Not Reportable 11/29/17 05:24: Sodium 139, Potassium 4.6, Chloride 98, Carbon Dioxide 33.0 H, Anion Gap 8, BUN 66 H, Creatinine 2.16 H, Est GFR (MDRD) Af Amer 29 L, Est GFR (MDRD) Non-Af 24 L, BUN/Creatinine Ratio 30.6 H, Glucose 41 L*, Calcium 8.4 L Rhythm: Normal sinus rhythm. EKG: Pending ECHO: LVEF of 65%, moderate left atrial enlargement, RVSP of 52 mmHg consistent with at least moderate pulmonary hypertension. Stress Test: Cardiac Cath: PCI: CT Surgery: Holter monitor: EPS: PPM: CXR: Chest CT Scan: Assessment/Plan Assessment/Plan 1. Paroxysmal atrial fibrillation with rapid ventricular response The patient has a history of paroxysmal atrial fibrillation. She has been documenting recurrence of this since being in the hospital. This may be exacerbated based on her underlying noncardiovascular issues including infectious disease issues as well as other noncardiovascular issues including underlying pulmonary issues superimposed upon the patient's history of atrial enlargement and mitral valve disease, etc. Patient is converted to normal sinus rhythm by telemetry, will obtain an EKG to confirm that. Recommend transitioning her from IV amiodarone to p.o. amiodarone 200 mg daily to maintain normal sinus rhythm. Would not recommend anticoagulation given her history of anemia and previous brain hemorrhage in the past. Continue Lopressor 50 mg's p.o. twice daily. At some point in time the patient may need to be further screened for the possibility of CAD and myocardial ischemia contributing to her symptoms and her findings. However this may have to be postponed until she has improved from a noncardiovascular standpoint with respect to concerns of infectious disease and/or underlying pulmonary disease. 2. Valvular heart disease The patient does have valvular heart disease as previously noted. Certainly this can contribute to concerns with her left atrial size as well as subsequent atrial dysrhythmias. At the present time she will need to continue to be followed by history, exam, and echocardiographic studies. She will need compensatory medical management as best as possible in the interim. 3. Pulmonary hypertension: The patient has an RVSP of at least 52 mmHg by echocardiogram. In addition she appears to have a left pleural effusion, which may be loculated based upon the CT scan, but nonetheless would restart Lasix 40 mg p.o. daily, with eventual goal of 60 mg a day as she was on at home. Consideration may want to be made for ultrasound evaluation of her left pleural effusion to determine if it would be safe for thoracentesis to assist with lung reinflation. I will leave this to Dr. Valencia. Hopefully with diuresis she will improve her left pleural effusion. 4. Physical therapy: The patient is currently undergoing physical therapy for eventual placement most likely in a transition center. Code Visit Inpatient E&M: 59423 Subs Hosp L2
--- NOTE | 2017-11-29 10:06 | EKG12_ITS ---
Test Reason : AM EKG Blood Pressure : / mmHG Vent. Rate : 112 BPM Atrial Rate : 133 BPM P-R Int : 000 ms QRS Dur : 086 ms QT Int : 370 ms P-R-T Axes : 000 030 071 degrees QTc Int : 505 ms Atrial fibrillation Low voltage QRS Abnormal ECG When compared with ECG of 27-NOV-2017 09:34, MANUAL COMPARISON REQUIRED, DATA IS UNCONFIRMED Confirmed by RHIANNON MARKHAM ([id number]), newspaper editor managing HONORIO SHEFFIELD ([id number]) on 12/02/2017 2:18:52 PM Referred By: Severiano Kumar Confirmed By:RHIANNON MARKHAM
[2017-11-29 11:01] LABS: Bedside Glucose 177 mg/dL (70-110)
[2017-11-29] MEDS: Furosemide 40 MG Tablet PO (11:49)
[2017-11-29] MEDS: Amiodarone 200 MG Tablet PO (11:49)
[2017-11-29 16:30] LABS: Bedside Glucose 136 mg/dL (70-110)
--- NOTE | 2017-11-29 19:50 | NURSING ---
Called RT Gabriella to check pt. own bipap machine, as pt. Pox was going down to 83%. Machine settings not at enough pressure and RT will place pt. on hospital Bipap machine. at bedside and aware.
[2017-11-29] MEDS: Atorvastatin Calcium 40 MG Tablet PO (22:51)
[2017-11-29] MEDS: Gabapentin 300 MG Capsule PO (22:52)
[2017-11-29 23:21] LABS: Bedside Glucose 257 mg/dL (70-110)
[2017-11-30] VITALS (29 sets, daily range): BP systolic 108–140; BP diastolic 39–65; PULSE 52–90; RESP 12–29; TEMP 36.2–37.1; O2SAT 88–98
[2017-11-30] MEDS: Ipratropium/Albuterol Sulfate 3 ML AMPUL.NEB INHALATION ×4 (02:00→20:04)
[2017-11-30] MEDS: Piperacil/Tazobactam 3.375 GM/50 ML ML IV ×3 (05:06→22:34)
[2017-11-30] MEDS: cloNIDine HCl 0.1 MG Tablet PO ×3 (05:30→22:41)
[2017-11-30 06:08] LABS: Absolute Lymphocyte Count 1.14 X10^3/ul (0.83-4.51); Absolute Neutrophil Count 4.9 X10^3/uL (2.0-7.7); Basophil# 0.02 X10^3/uL; Basophil% 0.3 % (0-1); Eosinophil# 0.13 X10^3/uL; Eosinophils% 1.9 % (0-5); Hematocrit 26.3 % (37-47); Hemoglobin 7.8 g/dl (12.0-15.0); Lymphocyte # 1.14 X10^3/ul (4.0); Lymphocyte % 16.8 % (19-41); Mean Corp Hgb Conc 29.7 g/gl (32-36); Mean Corpuscular Hgb 28.4 pg (27.0-32.0); Mean Corpuscular Volume 95.6 fL (81-99); Mean Platelet Vol. 9.1 fl (6.2-12.0); Monocyte# 0.56 X10^3/uL; Monocyte% 8.3 % (0-10); Neutrophil % 72.3 % (47-70); Platelet Count 222 K/mm3 (150-450); RBC Distribution Width CV 16.3 % (11.6-14.6); RBC Distribution Width SD 56.8 fl (35.1-43.9); Red Blood Count 2.75 M/mm3 (4.2-5.4); White Blood Count 6.8 K/mm3 (4.4-11.0)
[2017-11-30 06:15] LABS: Anion Gap 9 (5-15); BUN 76 mg/dL (7-18); BUN/Creat Ratio 27.2 RATIO (10-20); Calcium,Total 8.4 mg/dL (8.5-10.1); Chloride 99 mmol/L (98-107); Creatinine, Serum 2.79 mg/dL (0.55-1.02); EST Glomerular Filtration Rate 18 mL/min (>60); Est Glom Filt Rate - Afr Amer 22 mL/min (>60); Estimated Creatinine Clearance 16.88 ml/min; Glucose 107 mg/dL (74-106); Potassium 5.1 mmol/L (3.5-5.1); Sodium Level 139 mmol/L (136-145)
[2017-11-30 06:29] LABS: POSITIVE COUNT NO; POSITIVE DIFFERENTIAL NO; POSITIVE MORPHOLOGY NO
[2017-11-30 07:01] LABS: Bedside Glucose 98 mg/dL (70-110)
--- NOTE | 2017-11-30 07:42 | CT_ITS ---
STUDY: CT ABDOMEN AND PELVIS WITHOUT CONTRAST REASON FOR EXAM: Female, 72 years old. Abdominal pain and scleroderma RADIATION DOSAGE (If Supplied By Facility): CTDIvol = ( 21.86 ) mGy, DLP = ( 1185.21 ) mGycm TECHNIQUE: Transaxial images were obtained from the dome of the diaphragm to the symphysis pubis without oral contrast, and without intravenous contrast. Sagittal and coronal images were reconstructed. Individualized dose optimization techniques were used for this CT. COMPARISON: None. FINDINGS: Cardiac size is enlarged. Small pericardial effusion. Mitral annular calcifications. Small bilateral pleural effusions with bilateral compressive atelectasis. Small calcified granulomas in the right lower lobe. Small hiatal hernia. Gallbladder is nonvisualized likely related with cholecystectomy Splenic and hepatic calcifications likely relate with granulomatous disease. Splenomegaly with splenic craniocaudal dimension of approximately 15.5 cm Small nodule in the left adrenal gland possibly a small adenoma. Kidneys demonstrate no evidence for hydronephrosis. Vascular calcifications of the abdominal aorta. Midline fat-containing umbilical hernia. Scattered colonic diverticulosis. No evidence for acute diverticulitis. Normal appendix. The bowel gas pattern is nonspecific obstructive No retroperitoneal adenopathy Degenerative changes in the lumbar spine as well as the sacroiliac joints No free air within the peritoneal cavity. No free fluid in the pelvis No evidence for mesenteric adenopathy. Mild anterolisthesis of L4 on L5. Diffuse osteopenia Compression fracture of the T12 vertebral body of indeterminate age. Compression fracture of the L2 vertebral body of indeterminate age. L1 vertebral body kyphoplasty CT/Abdomen/Pelvis without Cont IMPRESSION: No evidence for small bowel obstruction. No evidence for obstructive uropathy. No evidence for acute appendicitis. Midline umbilical hernia containing fat Uncomplicated colonic diverticulosis Small bowel pleural effusions with bibasilar compressive atelectasis. Cardiomegaly with small pericardial effusion Splenomegaly T12 and L2 vertebral body compression fractures of indeterminate age. Electronically Signed: Javad Jalloh, at 9:17 EST Tel , Service support ,
--- NOTE | 2017-11-30 07:43 | PCM.PROGNOTE ---
Patient Problems: Active and Suspected Problems (Last Updated 11/27/17 @ 08:28 by Fahad Sesay MD) Paroxysmal A-fib (Acute) Subjective: Chief complaint: Follow-up after admission for questionable community-acquired pneumonia, left pleural effusion, acute on chronic hypoxic respiratory failure, acute cystitis, new onset A. fib and mild hyperkalemia. Patient seen and examined. No acute events overnight. Again today, she complains of upper abdominal pain, vague pain, across her abdomen associated with mild nausea. Shortness of breath has been improving slowly. Denied cough or sputum production. Denied fever or chills. She is afebrile, blood pressure noted are stable, pulse ox is 98% on 4 L. - Physical Exam General: Alert, Oriented x3, Cooperative, - - Mildly short of breath. HEENT: Atraumatic, PERRLA, EOMI Oral: Moist Mucosa, No Gingival or Mucosal Lesions/ Ulcerations Neck: Supple, No JVD, Negative Carotid Bruits, Trachea Midline, Thyroid Normal Size and Texture Lungs: No wheeze, Diminished, Rhonchi, Short of Breath, - - Decreased breath sounds bilateral, more on the left base with impaired percussion noted, faint crackles. Cardiovascular: Regular rate, Regular Rhythm, Normal S1, Normal S2, PMI Normal Abdomen: Bowel Sounds Present, Soft, Non Tender, No Hepato-splenomegaly, Tender - Mild superficial tenderness. Extremities: No clubbing, No cyanosis, No edema Skin: No rashes, No breakdown Lymphatic: No Cervical, Supraclavicular, or Inguinal Adenopathy Neurological: Cranial nerves II-XII grossly intact, Neuro grossly intact Psych/Mental Status: Normal Affect, Appropriate Vital Signs Temp Pulse Resp BP Pulse Ox 97.2 F L 56 L 18 123/65 H 97 11/30/17 06:00 11/30/17 07:15 11/30/17 07:15 11/30/17 06:00 11/30/17 07:15 Oxygen Flow Rate 3.5 Oxygen Delivery Method Nasal Cannula Weight: 214 lb 15.211 oz Body Mass Index (BMI) 35.7 Intake and Output for Last 24 Hours 11/28/17 11/29/17 11/30/17 23:59 23:59 23:59 Intake Total 1051 / 1051 1573.3 / 1573.3 396 / 396 Output Total 150 / 150 302 / 302 Balance 901 / 901 1271.3 / 1271.3 396 / 396 Laboratory Tests Past 24 Hrs 11/29/17 11/30/17 11/30/17 08:10 05:22 05:22 WBC 6.8 RBC 2.75 L Hgb 7.8 L Hct 26.3 L MCV 95.6 MCH 28.4 MCHC 29.7 L RDW 16.3 H RDW Differential 56.8 H Plt Count 222 MPV 9.1 Immature Gran % (Auto) 0.400 Neut % (Auto) 72.3 H Lymph % (Auto) 16.8 L [place] % (Auto) 8.3 Eos % (Auto) 1.9 Baso % (Auto) 0.3 Absolute Neuts (auto) 4.9 Absolute Lymphs (auto) 1.14 Total Counted Not Reportable Sodium 139 Potassium 5.1 Chloride 99 Carbon Dioxide 31.0 Anion Gap 9 BUN 76 H Creatinine 2.79 H Estim Creat Clear Calc 16.88 Est GFR (MDRD) Af Amer 22 L Est GFR (MDRD) Non-Af 18 L BUN/Creatinine Ratio 27.2 H Glucose 107 H Calcium 8.4 L Blood Type O POSITIVE Antibody Screen NEGATIVE Crossmatch See Detail POC Glucose 11/30/17 11/29/17 11/29/17 06:53 22:45 16:25 POC Glucose 98 257 H 136 H 11/29/17 10:54 POC Glucose 177 H Assessment/Plan Active and Suspected Problems (Last Updated 11/27/17 @ 08:28 by Fahad Sesay MD) Paroxysmal A-fib (Acute) This is a 72 years old female patient presented to the emergency department because of left-sided pleuritic chest pain, found to have left-sided pleural effusion, suspected community-acquired pneumonia, hyperkalemia, acute cystitis, acute on chronic hypoxic respiratory failure and shortly after admission, she developed A. fib with RVR. #1 Questionable left lung community-acquired pneumonia: Started on IV Levaquin. Both IV Zosyn and vancomycin discontinued. She remained afebrile, no leukocytosis. Pneumococcal and Legionella antigen were negative. Nasal swab for influenza a and B were negative. One bottle of blood culture revealed gram-negative rods, this could be a contaminant. Other blood culture revealed no growth in 48 hours. Urine culture revealed Klebsiella pneumonia. Patient has been complaining of vague upper abdominal pain across to the abdomen since yesterday. Initially, she attributed it to coughing but she is still complaining. Plan: Continue same treatment, monitor the blood culture, CT scan abdomen and pelvis without contrast, LFT, lipase. #2 Moderate left pleural effusion/small right pleural effusion: Diagnostic and therapeutic left thoracentesis canceled because of no large amount of pleural fluid on ultrasound chest. CT scan chest done yesterday, revealed moderate left pleural effusion with left lung compressive atelectasis, small right pleural effusion. Plan as above. #3 acute on chronic hypoxic respiratory failure: Her symptoms improved, l pulse ox has been fluctuating, today her pulse ox is 98% on 4 L. she has been at 3.5 L at home. Patient has been on oxygen since July, for chronic respiratory failure. #4 Klebsiella pneumoniae acute cystitis: She is on IV Levaquin. Urine cultures revealed Klebsiella pneumonia. She is afebrile, leukocytosis resolved. #5 gram-negative bacteremia: 1 bottle of blood culture revealed gram-negative rods, the other bottle revealed no growth in 48 hours. This is probably contamination. She is on IV Levaquin. She is afebrile, no leukocytosis. Plan to continue IV Levaquin, monitor blood culture. #6 new onset A. fib with RVR: He is on oral amiodarone. Remained in sinus rhythm, heart rate stable. 2D echocardiogram revealed a fraction of 65%, other findings reviewed. Her potassium, sodium and magnesium were normal. TSH was normal. Troponin was negative ?2. Cardiology on the case. #7 acute on chronic anemia: Her baseline hemoglobin has been around 9-11 g/dL. Admission hemoglobin was 8.2 g/dL, she received 1 unit of packed RBCs and today's hemoglobin is 7.8 g/dL. No evidence of active bleeding. Plan: Transfuse 1 more unit of packed RBCs. #8 mild hyperkalemia: Without EKG changes. Potassium is back to normal. Today's potassium is 5.1. #9 stage III chronic kidney disease: Creatinine is around 1.4-2 mg/dL. Admission creatinine is 1.92, today's creatinine is 2.79, has been trending up. #10 type 2 diabetes mellitus: Blood sugar stable, continue ADA diet, Accu-Cheks, insulin sliding scale, continue home doses of Levemir insulin twice daily. #11 hypertension: Blood pressure stable, continue clonidine and metoprolol. #12 DVT prophylaxis: Subcu heparin. Other chronic medical problems: #1 chronic anemia. #2 Crest variant of scleroderma. #3 peripheral vascular disease. #4 obstructive sleep apnea. #5 history of stroke. #6 morbid obesity. #7 history of cerebral bleed status post craniectomy. This note was generated with [employer] dictation software. It may contain incorrect words, spelling, and punctuation that were not noted in checking the note before signing. Code Visit Inpatient E&M: 62383 Subs Hosp L3
--- NOTE | 2017-11-30 07:51 | PN_ITS ---
Patient Problems: Active and Suspected Problems (Last Updated 11/27/17 @ 08:28 by Fahad Sesay MD) Paroxysmal A-fib (Acute) Subjective: Chief complaint: Follow-up after admission for questionable community-acquired pneumonia, left pleural effusion, acute on chronic hypoxic respiratory failure, acute cystitis, new onset A. fib and mild hyperkalemia. Patient seen and examined. No acute events overnight. Again today, she complains of upper abdominal pain, vague pain, across her abdomen associated with mild nausea. Shortness of breath has been improving slowly. Denied cough or sputum production. Denied fever or chills. She is afebrile, blood pressure noted are stable, pulse ox is 98% on 4 L. - Physical Exam General: Alert, Oriented x3, Cooperative, - - Mildly short of breath. HEENT: Atraumatic, PERRLA, EOMI Oral: Moist Mucosa, No Gingival or Mucosal Lesions/ Ulcerations Neck: Supple, No JVD, Negative Carotid Bruits, Trachea Midline, Thyroid Normal Size and Texture Lungs: No wheeze, Diminished, Rhonchi, Short of Breath, - - Decreased breath sounds bilateral, more on the left base with impaired percussion noted, faint crackles. Cardiovascular: Regular rate, Regular Rhythm, Normal S1, Normal S2, PMI Normal Abdomen: Bowel Sounds Present, Soft, Non Tender, No Hepato-splenomegaly, Tender - Mild superficial tenderness. Extremities: No clubbing, No cyanosis, No edema Skin: No rashes, No breakdown Lymphatic: No Cervical, Supraclavicular, or Inguinal Adenopathy Neurological: Cranial nerves II-XII grossly intact, Neuro grossly intact Psych/Mental Status: Normal Affect, Appropriate Vital Signs Temp Pulse Resp BP Pulse Ox 97.2 F L 56 L 18 123/65 H 97 11/30/17 06:00 11/30/17 07:15 11/30/17 07:15 11/30/17 06:00 11/30/17 07:15 Oxygen Flow Rate 3.5 Oxygen Delivery Method Nasal Cannula Weight: 214 lb 15.211 oz Body Mass Index (BMI) 35.7 Intake and Output for Last 24 Hours 11/28/17 11/29/17 11/30/17 23:59 23:59 23:59 Intake Total 1051 / 1051 1573.3 / 1573.3 396 / 396 Output Total 150 / 150 302 / 302 Balance 901 / 901 1271.3 / 1271.3 396 / 396 Laboratory Tests Past 24 Hrs 11/29/17 11/30/17 11/30/17 08:10 05:22 05:22 WBC 6.8 RBC 2.75 L Hgb 7.8 L Hct 26.3 L MCV 95.6 MCH 28.4 MCHC 29.7 L RDW 16.3 H RDW Differential 56.8 H Plt Count 222 MPV 9.1 Immature Gran % (Auto) 0.400 Neut % (Auto) 72.3 H Lymph % (Auto) 16.8 L [place] % (Auto) 8.3 Eos % (Auto) 1.9 Baso % (Auto) 0.3 Absolute Neuts (auto) 4.9 Absolute Lymphs (auto) 1.14 Total Counted Not Reportable Sodium 139 Potassium 5.1 Chloride 99 Carbon Dioxide 31.0 Anion Gap 9 BUN 76 H Creatinine 2.79 H Estim Creat Clear Calc 16.88 Est GFR (MDRD) Af Amer 22 L Est GFR (MDRD) Non-Af 18 L BUN/Creatinine Ratio 27.2 H Glucose 107 H Calcium 8.4 L Blood Type O POSITIVE Antibody Screen NEGATIVE Crossmatch See Detail POC Glucose 11/30/17 11/29/17 11/29/17 06:53 22:45 16:25 POC Glucose 98 257 H 136 H 11/29/17 10:54 POC Glucose 177 H Assessment/Plan Active and Suspected Problems (Last Updated 11/27/17 @ 08:28 by Fahad Sesay MD) Paroxysmal A-fib (Acute) This is a 72 years old female patient presented to the emergency department because of left-sided pleuritic chest pain, found to have left-sided pleural effusion, suspected community-acquired pneumonia, hyperkalemia, acute cystitis, acute on chronic hypoxic respiratory failure and shortly after admission, she developed A. fib with RVR. #1 Questionable left lung community-acquired pneumonia: Started on IV Levaquin. Both IV Zosyn and vancomycin discontinued. She remained afebrile, no leukocytosis. Pneumococcal and Legionella antigen were negative. Nasal swab for influenza a and B were negative. One bottle of blood culture revealed gram- negative rods, this could be a contaminant. Other blood culture revealed no growth in 48 hours. Urine culture revealed Klebsiella pneumonia. Patient has been complaining of vague upper abdominal pain across to the abdomen since yesterday. Initially, she attributed it to coughing but she is still complaining. Plan: Continue same treatment, monitor the blood culture, CT scan abdomen and pelvis without contrast, LFT, lipase. #2 Moderate left pleural effusion/small right pleural effusion: Diagnostic and therapeutic left thoracentesis canceled because of no large amount of pleural fluid on ultrasound chest. CT scan chest done yesterday, revealed moderate left pleural effusion with left lung compressive atelectasis, small right pleural effusion. Plan as above. #3 acute on chronic hypoxic respiratory failure: Her symptoms improved, l pulse ox has been fluctuating, today her pulse ox is 98% on 4 L. she has been at 3.5 L at home. Patient has been on oxygen since July, for chronic respiratory failure. #4 Klebsiella pneumoniae acute cystitis: She is on IV Levaquin. Urine cultures revealed Klebsiella pneumonia. She is afebrile, leukocytosis resolved. #5 gram-negative bacteremia: 1 bottle of blood culture revealed gram-negative rods, the other bottle revealed no growth in 48 hours. This is probably contamination. She is on IV Levaquin. She is afebrile, no leukocytosis. Plan to continue IV Levaquin, monitor blood culture. #6 new onset A. fib with RVR: He is on oral amiodarone. Remained in sinus rhythm, heart rate stable. 2D echocardiogram revealed a fraction of 65%, other findings reviewed. Her potassium, sodium and magnesium were normal. TSH was normal. Troponin was negative ?2. Cardiology on the case. #7 acute on chronic anemia: Her baseline hemoglobin has been around 9-11 g/dL. Admission hemoglobin was 8.2 g/dL, she received 1 unit of packed RBCs and today' s hemoglobin is 7.8 g/dL. No evidence of active bleeding. Plan: Transfuse 1 more unit of packed RBCs. #8 mild hyperkalemia: Without EKG changes. Potassium is back to normal. Today' s potassium is 5.1. #9 stage III chronic kidney disease: Creatinine is around 1.4-2 mg/dL. Admission creatinine is 1.92, today's creatinine is 2.79, has been trending up. #10 type 2 diabetes mellitus: Blood sugar stable, continue ADA diet, Accu-Cheks , insulin sliding scale, continue home doses of Levemir insulin twice daily. #11 hypertension: Blood pressure stable, continue clonidine and metoprolol. #12 DVT prophylaxis: Subcu heparin. Other chronic medical problems: #1 chronic anemia. #2 [place] variant of scleroderma. #3 peripheral vascular disease. #4 obstructive sleep apnea. #5 history of stroke. #6 morbid obesity. #7 history of cerebral bleed status post craniectomy. This note was generated with [employer] dictation software. It may contain incorrect words, spelling, and punctuation that were not noted in checking the note before signing. Code Visit Inpatient E&M: 03579 Subs Hosp L3
--- NOTE | 2017-11-30 08:47 | PCM.PROGNOTE ---
Patient Problems: Active and Suspected Problems (Last Updated 11/27/17 @ 08:28 by Fahad Sesay MD) Paroxysmal A-fib (Acute) Subjective: Patient did well overnight. Patient's blood sugar is much better this morning. Patient reports that after correction of blood sugar yesterday, shortness of breath was back to its baseline. Patient continues to report reproducible chest pain. Patient did revert back to normal sinus rhythm and heart rates have been in the mid 50s to 60s. - Physical Exam General: Alert, Oriented x3, Cooperative, No apparent distress, - - Obese. Appears older than stated age. HEENT: Atraumatic, PERRLA, EOMI, Normocephalic, - - No scleral icterus or injection noted. Oral: Moist Mucosa Neck: Supple, No JVD, No Nodes, Trachea Midline Lungs: No rhonchi, No wheeze, No rales, Diminished, - - Symmetric expansion. No dullness to percussion. Cardiovascular: Regular rate, Regular Rhythm, Normal S1, Normal S2, No murmurs, No rub noted, No Gallop Abdomen: Bowel Sounds Present, Soft, Non Tender, Non-Distended, Obese Extremities: No clubbing, No cyanosis, Capillary Refill Less than 3 Seconds, Edema - Trace Skin: - - No significant change compared to previous Musculoskeletal: No Tenderness to Palpation of Joints or Extremities Lymphatic: No Cervical, Supraclavicular, or Inguinal Adenopathy Neurological: Cranial nerves II-XII grossly intact, Neuro grossly intact, Motor Exam 5/5 strength throughout, - - False eye noted Psych/Mental Status: Alert and oriented to time, place, person, mood and affect Vital Signs Temp Pulse Resp BP Pulse Ox 36.2 C L 56 L 18 123/65 H 97 11/30/17 06:00 11/30/17 07:55 11/30/17 07:15 11/30/17 06:00 11/30/17 07:15 Oxygen Flow Rate 3.5 Oxygen Delivery Method Nasal Cannula Weight: 97.5 kg Body Mass Index (BMI) 35.7 Intake and Output for Last 24 Hours 11/28/17 11/29/17 11/30/17 23:59 23:59 23:59 Intake Total 1051 / 1051 1573.3 / 1573.3 396 / 396 Output Total 150 / 150 302 / 302 Balance 901 / 901 1271.3 / 1271.3 396 / 396 Laboratory Tests Past 24 Hrs 11/29/17 11/30/17 11/30/17 08:10 05:22 05:22 WBC 6.8 RBC 2.75 L Hgb 7.8 L Hct 26.3 L MCV 95.6 MCH 28.4 MCHC 29.7 L RDW 16.3 H RDW Differential 56.8 H Plt Count 222 MPV 9.1 Immature Gran % (Auto) 0.400 Neut % (Auto) 72.3 H Lymph % (Auto) 16.8 L [place] % (Auto) 8.3 Eos % (Auto) 1.9 Baso % (Auto) 0.3 Absolute Neuts (auto) 4.9 Absolute Lymphs (auto) 1.14 Total Counted Not Reportable Sodium 139 Potassium 5.1 Chloride 99 Carbon Dioxide 31.0 Anion Gap 9 BUN 76 H Creatinine 2.79 H Estim Creat Clear Calc 16.88 Est GFR (MDRD) Af Amer 22 L Est GFR (MDRD) Non-Af 18 L BUN/Creatinine Ratio 27.2 H Glucose 107 H Calcium 8.4 L Blood Type O POSITIVE Antibody Screen NEGATIVE Crossmatch See Detail POC Glucose 11/30/17 11/29/17 11/29/17 06:53 22:45 16:25 POC Glucose 98 257 H 136 H 11/29/17 10:54 POC Glucose 177 H Assessment/Plan Active and Suspected Problems (Last Updated 11/27/17 @ 08:28 by Fahad Sesay MD) Paroxysmal A-fib (Acute) RECOMMENDATIONS 1. Wean oxygen supplementation to keep saturations 88-92%. 2. Encourage incentive spirometer 3. Increase activity as tolerated 4. Continue aerosols and antibiotics 5. Cardiology following 6. Obtain renal consultation IMPRESSIONS 1. 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 This may be the etiology of patient's initial increase in FiO2 requirements. She did report significant improvement after correction of hypoglycemia yesterday. Clinical suspicion for cardiac mediated dyspnea on exertion. Unclear if patient would require significant pulmonary intervention at this time. 2. New onset atrial fibrillation with RVR RESOLVED > Cardiology following. Patient has reverted to normal sinus rhythm and does have a pericardial effusion. Heart rate is much better controlled today. Patient would likely benefit from right heart catheterization once euvolemic. 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 3. Acute cystitis Klebsiella pneumonia has been isolated. Patient on appropriate antibiotics. No CVA tenderness. Management per hospitalist. 4. Hyperkalemia/CKD/morbid obesity/peripheral artery occlusive disease/crest variant of scleroderma/HTN/DM/INES/history of cerebral hemorrhage/anemia/stroke/HLD/neuropathic pain/vitamin D deficiency Complicates care, management, recovery, and prognosis. Patient's creatinine has been elevated. Patient has seen Dr. Romeo in the past. Renal has been consulted. Await recommendations. Thank you for the opportunity to participate in this patient's care, please do not hesitate to contact us with any further questions or concerns. This note was generated with [employer] dictation software. It may contain incorrect words, spelling, and punctuation that were not noted in checking the note before signing. Code Visit Inpatient E&M: 55397 Subs Hosp L2
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
[2017-11-30] MEDS: Amiodarone 200 MG Tablet PO (09:15)
[2017-11-30] MEDS: Iron Polysaccharide Complex 150 MG CAPSULE PO (09:15)
[2017-11-30] MEDS: Heparin Injection 5,000 UNITS/ML Syringe 5000 UNITS SC ×2 (09:16→22:34)
[2017-11-30] MEDS: Furosemide 40 MG Tablet PO (09:16)
[2017-11-30] MEDS: Metoprolol Tartrate 50 MG Tablet PO ×2 (09:17→22:44)
[2017-11-30] MEDS: Pantoprazole Sodium 40 MG Tablet PO (09:17)
[2017-11-30 12:00] LABS: Bedside Glucose 211 mg/dL (70-110)
[2017-11-30 16:56] LABS: Bedside Glucose 225 mg/dL (70-110)
[2017-11-30] MEDS: Atorvastatin Calcium 40 MG Tablet PO (22:42)
[2017-11-30] MEDS: Gabapentin 300 MG Capsule PO (22:50)
[2017-11-30 23:01] LABS: Bedside Glucose 273 mg/dL (70-110)
[2017-12-01] VITALS (21 sets, daily range): BP systolic 119–161; BP diastolic 51–71; PULSE 51–68; RESP 12–24; TEMP 36.4–36.9; O2SAT 92–99
[2017-12-01] MEDS: Ipratropium/Albuterol Sulfate 3 ML AMPUL.NEB INHALATION ×4 (01:50→19:00)
[2017-12-01] MEDS: Piperacil/Tazobactam 3.375 GM/50 ML ML IV (05:26)
[2017-12-01] MEDS: cloNIDine HCl 0.1 MG Tablet PO ×3 (05:28→21:05)
[2017-12-01] MEDS: levoFLOXacin 250 MG Tablet PO (05:37)
[2017-12-01 06:14] LABS: Anion Gap 7 (5-15); BUN 84 mg/dL (7-18); BUN/Creat Ratio 27.7 RATIO (10-20); Calcium,Total 8.4 mg/dL (8.5-10.1); Chloride 99 mmol/L (98-107); Creatinine, Serum 3.03 mg/dL (0.55-1.02); EST Glomerular Filtration Rate 16 mL/min (>60); Est Glom Filt Rate - Afr Amer 20 mL/min (>60); Estimated Creatinine Clearance 15.55 ml/min; Glucose 149 mg/dL (74-106); Sodium Level 138 mmol/L (136-145)
[2017-12-01 06:17] LABS: Absolute Lymphocyte Count 0.92 X10^3/ul (0.83-4.51); Absolute Neutrophil Count 4.8 X10^3/uL (2.0-7.7); Eosinophil# 0.11 X10^3/uL; Eosinophils% 1.8 % (0-5); Hematocrit 29.5 % (37-47); Hemoglobin 8.8 g/dl (12.0-15.0); Lymphocyte # 0.92 X10^3/ul (4.0); Lymphocyte % 14.8 % (19-41); Mean Corp Hgb Conc 29.8 g/gl (32-36); Mean Corpuscular Hgb 28.7 pg (27.0-32.0); Mean Corpuscular Volume 96.1 fL (81-99); Mean Platelet Vol. 9.3 fl (6.2-12.0); Monocyte# 0.41 X10^3/uL; Monocyte% 6.6 % (0-10); Neutrophil # 4.75 X10^3/uL (2.7-7.7); Neutrophil % 76.3 % (47-70); Platelet Count 216 K/mm3 (150-450); RBC Distribution Width CV 16.2 % (11.6-14.6); RBC Distribution Width SD 56.3 fl (35.1-43.9); Red Blood Count 3.07 M/mm3 (4.2-5.4); White Blood Count 6.2 K/mm3 (4.4-11.0)
[2017-12-01 06:28] LABS: POSITIVE COUNT NO; POSITIVE DIFFERENTIAL NO; POSITIVE MORPHOLOGY NO
[2017-12-01 06:56] LABS: Bedside Glucose 129 mg/dL (70-110)
--- NOTE | 2017-12-01 09:24 | PCM.PN.HOSP ---
Patient Problems: Active and Suspected Problems (Last Updated 11/27/17 @ 08:28 by Fahad Sesay MD) Paroxysmal A-fib (Acute) JORGE (acute kidney injury) (Acute) Subjective: yoni is a 72-year-old lady admitted with left-sided chest pain in addition to shortness of breath imaging studies on admission demonstrated left-sided pleural effusion as well as suspected pneumonia treated to a monitored bed where patient has since been managed Objective: GENERAL: Appears ill looking HEENT: Clear conjunctiva, NECK; supple, normal thyroid, CHEST: Diminished to auscultation bilaterally, . HEART: Regular S1 S2, no audible murmurs ABDOMEN: soft, non-tender, normoactive bowel sounds, RECTAL: deferred EXTREMITIES: No clubbing, no cyanosis. FACILITY ATTENDANT: Awake, no lateralizing signs. SKIN: No rash Vitals/I&O's: Vital Signs Temp Pulse Resp BP Pulse Ox 97.7 F L 51 L 18 124/55 H 98 12/01/17 05:34 12/01/17 07:06 12/01/17 08:15 12/01/17 05:34 12/01/17 06:42 Oxygen Flow Rate 3 Oxygen Delivery Method Nasal Cannula Weight: 97.5 kg Body Mass Index (BMI) 35.7 Intake and Output for Last 24 Hours 11/29/17 11/30/17 12/01/17 23:59 23:59 23:59 Intake Total 1573.3 / 1573.3 1038 / 1038 289 / 289 Output Total 302 / 302 Balance 1271.3 / 1271.3 1038 / 1038 289 / 289 Laboratory Results 11/29/17 08:10: Crossmatch See Detail 11/30/17 11:45: POC Glucose 211 H 11/30/17 16:48: POC Glucose 225 H 11/30/17 22:41: POC Glucose 273 H 12/01/17 05:05: WBC 6.2, RBC 3.07 L, Hgb 8.8 L, Hct 29.5 L, MCV 96.1, MCH 28.7, MCHC 29.8 L, RDW 16.2 H, RDW Differential 56.3 H, Plt Count 216, MPV 9.3, Immature Gran % (Auto) 0.500, Neut % (Auto) 76.3 H, Lymph % (Auto) 14.8 L, [place] % (Auto) 6.6, Eos % (Auto) 1.8, Baso % (Auto) 0.0, Absolute Neuts (auto) 4.8, Absolute Lymphs (auto) 0.92, Total Counted Not Reportable 12/01/17 05:05: Sodium 138, Potassium 5.0, Chloride 99, Carbon Dioxide 32.0, Anion Gap 7, BUN 84 H, Creatinine 3.03 H, Estim Creat Clear Calc 15.55, Est GFR (MDRD) Af Amer 20 L, Est GFR (MDRD) Non-Af 16 L, BUN/Creatinine Ratio 27.7 H, Glucose 149 H, Calcium 8.4 L 12/01/17 06:48: POC Glucose 129 H Current Medications Albuterol/Ipratropium (Duoneb) 3 ml INHALATION Q6H.RT [facility] Last Admin: 12/01/17 06:42 Dose: 3 ml Amiodarone HCl (Cordarone) 200 mg PO DAILY [facility] Last Admin: 11/30/17 09:15 Dose: 200 mg Atorvastatin Calcium (Lipitor) 40 mg PO QHS [facility] Last Admin: 11/30/17 22:42 Dose: 40 mg Bisacodyl (Dulcolax) 5 mg PO DAILY PRN PRN PRN Reason: Constipation Clonidine (Catapres) 0.1 mg PO TID [facility] Last Admin: 12/01/17 05:28 Dose: 0.1 mg Dextrose (D50w Syringe) 0 gm IV X1 PRN; Protocol PRN Reason: Hypoglycemia Furosemide (Lasix) 40 mg PO DAILY [facility] Last Admin: 11/30/17 09:16 Dose: 40 mg Gabapentin (Neurontin) 300 mg PO QHS [facility] Last Admin: 11/30/17 22:50 Dose: 300 mg Glucagon () 1 mg IM .X1 PRN PRN Reason: Hypoglycemia Guaifenesin (Robitussin) 10 ml PO Q6H PRN PRN PRN Reason: COUGH/CONGESTION Heparin Sodium (Porcine) () 5,000 units SC BID [facility] Last Admin: 11/30/17 22:34 Dose: 5,000 units Piperacillin Sod/Tazobactam Sod (Zosyn) 3.375 gm in 50 mls @ 12.5 mls/hr IV Q8 [facility] Last Admin: 12/01/17 05:26 Dose: 12.5 mls/hr Insulin Aspart (Novolog Flexpen (Bkc)) 0 units SC ACHS [facility] PRN Reason: Protocol Last Admin: 12/01/17 07:30 Dose: Not Given Insulin Detemir (Levemir (Bk)) 39 units SC BID [facility] Last Admin: 11/30/17 22:35 Dose: 39 u Levofloxacin (Levaquin) 250 mg PO DAILY@0600 [facility] Last Admin: 12/01/17 05:37 Dose: 250 mg Metoprolol Tartrate (Lopressor (Beta Suzan)) 50 mg PO BID [facility] Last Admin: 11/30/17 22:44 Dose: 50 mg Oxycodone HCl (Oxyir) 5 mg PO Q6H PRN PRN PRN Reason: SEVERE PAIN (6-07/15) Last Admin: 11/29/17 17:58 Dose: 5 mg Pantoprazole Sodium (Protonix) 40 mg PO DAILY [facility] Last Admin: 11/30/17 09:17 Dose: 40 mg Polysaccharide [facility] ([facility]rex 150[facility] Last Admin: 11/30/17 09:15 Dose: 150 mg Sodium Chloride () 5 - 30 ml IV UD PRN PRN Reason: SALINE FLUSH Last Admin: 11/27/17 21:57 Dose: 20 ml Assessment/Plan Active and Suspected Problems (Last Updated 11/27/17 @ 08:28 by Fahad Sesay MD) Paroxysmal A-fib (Acute) JORGE (acute kidney injury) (Acute) Patient is a 72-year-old lady admitted with left-sided chest pain in addition to shortness of breath imaging studies on admission demonstrated left-sided pleural effusion as well as suspected pneumonia treated to a monitored bed where patient has since been managed 1. Suspected community-acquired pneumonia involving the left lower lobe. Patient was managed with antibiotics per protocol using Levaquin Zosyn and vancomycin the latter two subsequently discontinued. Patient was also placed on supplemental oxygen titrated to keep oxygen saturation greater than 90 2. Acute cystitis with Klebsiella management Levaquin based on sensitivities 3. Moderate left-sided pleural effusion managed symptomatically diagnostic and therapeutic paracentesis not performed due to inadequate fluid 2. Acute on chronic hypoxic respiratory failure secondary to #1 and 3 5. Anemia secondary to anemia of chronic disorder patient transfused with 1 unit PRBC after patient was deemed to be symptomatic 6. Mild hyperkalemia without EKG changes. Treated per protocol 7. New onset A. fib with RVR: Seen in consultation by cardiology echo demonstrated preserved ejection fraction of 65% placed on amiodarone back to sinus rhythm as of 12/01/17 8. Chronic kidney disease stage III baseline creatinine 1.42 9. Acute kidney injury superimposed on patient's CKD stage III patient was on Lasix held with consultation placed to nephrology 10. Hypertension-blood pressure controlled, home medications continued with dose adjustment as needed 11. Diabetes mellitus type 2 blood sugars have remained relatively stable did continue with patient long-acting insulin in addition to Accu-Cheks before meals and at bedtime with sliding scale coverage 12. Obstructive sleep apnea 13. Morbid obesity with BMI of 35.8 weight loss advised 14. History of previous CVA 15. History of cerebral bleed status post craniotomy 16. Crest variant scleroderma per history 17. DVT prophylaxis SC heparin Code Visit Inpatient E&M: 44655 Subs Hosp L3
--- NOTE | 2017-12-01 09:35 | PCM.PROGNOTE ---
Patient Problems: Active and Suspected Problems (Last Updated 11/27/17 @ 08:28 by Fahad Sesay MD) Paroxysmal A-fib (Acute) Subjective: The patient was seen and examined. She is sitting up in the chair in no acute distress. She denies any current shortness of breath or cough. States she feels better but not yet back to normal. Still having significant dyspnea on exertion. Hands very puffy. Asking when nephrology is going to come to see her. No chest pain today. Objective: Remains afebrile and hemodynamically stable. Heart rate has been in the 50s with the addition of her cardiac medications, however asymptomatic. Urine culture showing Klebsiella pneumoniae, patient on antibiotics. Influenza and blood cultures were negative. Urine strep/Legionella negative. Current lab work showing worsening of renal function. Patient was taken off Lasix. Cumulative fluid balance is + [id number]. Clinical Impression(s) from Imaging Studies Chest X-Ray 11/28/17 05:55 IMPRESSION: Persistent consolidation in the left lower lobe although there is slight improvement in the aeration of the left lower lobe. Blunting of the right costophrenic angle with mild increased markings at the right lung base. Electronically Signed: Brett Arcos MD at 9:06 EST Tel [phone], Service support , Chest CT 11/28/17 12:40 IMPRESSION: Moderate increase in the posterior and basilar left pleural effusion which now extends into the oblique fissure with major compressive atelectasis of the left lower lobe now including the superior segment. Moderate compressive atelectasis of the lingula and mild compressive atelectasis of the left upper lobe. Small, primarily subpulmonic effusion of the right chest with increased/mild compressive atelectasis of the right lower lobe. Other stable chronic findings. Continued moderate pericardial effusion and cardiomegaly. Electronically Signed: Florencia Warren MD at 15:58 EST , Service support , Abdomen/Pelvis CT 11/30/17 07:42 IMPRESSION: No evidence for small bowel obstruction. No evidence for obstructive uropathy. No evidence for acute appendicitis. Midline umbilical hernia containing fat Uncomplicated colonic diverticulosis Small bowel pleural effusions with bibasilar compressive atelectasis. Cardiomegaly with small pericardial effusion Splenomegaly T12 and L2 vertebral body compression fractures of indeterminate age. Electronically Signed: Javad Jalloh, at 9:17 EST Tel , Service support , - Physical Exam General: Alert, Oriented x3, Cooperative, No apparent distress, - - No conversational dyspnea HEENT: Atraumatic, Normocephalic Oral: Moist Mucosa, No Gingival or Mucosal Lesions/ Ulcerations Neck: Supple, No Nodes, Trachea Midline Lungs: Diminished, - - Rales throughout left lung. Rales posterior mid to lower right lung. No wheezes or rhonchi. No tachypnea, symmetric expansion. Cardiovascular: Regular rate, Regular Rhythm, Normal S1, Normal S2, No murmurs, No rub noted, No Gallop Abdomen: Bowel Sounds Present, Soft, Distended, Obese, Tender - Mildly tender upper quadrants, chronic Extremities: No clubbing, No cyanosis, Edema - 1-2+ pitting bilateral LEs. Bilat hands pitting edema, R>L Skin: - - no changes Musculoskeletal: No Tenderness to Palpation of Joints or Extremities Lymphatic: No Cervical, Supraclavicular, or Inguinal Adenopathy Neurological: Cranial nerves II-XII grossly intact, Neuro grossly intact, Motor Exam 5/5 strength throughout Psych/Mental Status: Alert and oriented to time, place, person, mood and affect Vital Signs Temp Pulse Resp BP Pulse Ox 97.7 F L 51 L 18 124/55 H 98 12/01/17 05:34 12/01/17 07:06 12/01/17 08:15 12/01/17 05:34 12/01/17 06:42 Oxygen Flow Rate 3 Oxygen Delivery Method Nasal Cannula Weight: 214 lb 15.211 oz Body Mass Index (BMI) 35.7 Intake and Output for Last 24 Hours 11/29/17 11/30/17 12/01/17 23:59 23:59 23:59 Intake Total 1573.3 / 1573.3 1038 / 1038 289 / 289 Output Total 302 / 302 Balance 1271.3 / 1271.3 1038 / 1038 289 / 289 Laboratory Tests Past 24 Hrs 11/29/17 12/01/17 12/01/17 08:10 05:05 05:05 WBC 6.2 RBC 3.07 L Hgb 8.8 L Hct 29.5 L MCV 96.1 MCH 28.7 MCHC 29.8 L RDW 16.2 H RDW Differential 56.3 H Plt Count 216 MPV 9.3 Immature Gran % (Auto) 0.500 Neut % (Auto) 76.3 H Lymph % (Auto) 14.8 L [place] % (Auto) 6.6 Eos % (Auto) 1.8 Baso % (Auto) 0.0 Absolute Neuts (auto) 4.8 Absolute Lymphs (auto) 0.92 Total Counted Not Reportable Sodium 138 Potassium 5.0 Chloride 99 Carbon Dioxide 32.0 Anion Gap 7 BUN 84 H Creatinine 3.03 H Estim Creat Clear Calc 15.55 Est GFR (MDRD) Af Amer 20 L Est GFR (MDRD) Non-Af 16 L BUN/Creatinine Ratio 27.7 H Glucose 149 H Calcium 8.4 L Crossmatch See Detail POC Glucose 12/01/17 11/30/17 11/30/17 06:48 22:41 16:48 POC Glucose 129 H 273 H 225 H 11/30/17 11:45 POC Glucose 211 H Assessment/Plan Active and Suspected Problems (Last Updated 11/27/17 @ 08:28 by Fahad Sesay MD) Paroxysmal A-fib (Acute) RECOMMENDATIONS 1. Wean oxygen supplementation to keep saturations 88-92%. 2. Encourage incentive spirometer 3. Increase activity as tolerated 4. Continue aerosols and antibiotics 5. Cardiology following 6. Await renal consultation 7. Elevate extremities IMPRESSIONS 1. 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 This may be the etiology of patient's initial increase in FiO2 requirements. She did report significant improvement after correction of hypoglycemia yesterday. Clinical suspicion for cardiac mediated dyspnea on exertion. Unclear if patient would require significant pulmonary intervention at this time. Thoracentesis attempted earlier in admission, aborted secondary to insufficient amount of fluid. Lasix has been discontinued. 2. New onset atrial fibrillation with RVR RESOLVED > Cardiology following. Patient has reverted to normal sinus rhythm and does have a pericardial effusion. Heart rate is much better controlled today. Patient would likely benefit from right heart catheterization once euvolemic. 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 3. Acute cystitis Klebsiella pneumonia has been isolated. Patient on appropriate antibiotics. No CVA tenderness. Management per hospitalist. 4. Hyperkalemia/CKD/morbid obesity/peripheral artery occlusive disease/crest variant of scleroderma/HTN/DM/INES/history of cerebral hemorrhage/anemia/stroke/HLD/neuropathic pain/vitamin D deficiency/anemia Complicates care, management, recovery, and prognosis. Patient's creatinine has been elevated and continues to rise. Patient has seen Dr. Romeo in the past. Renal has been consulted. Await recommendations. Patient has received total of 2 units of packed red blood cells for hemoglobin in 7 range, today stable at 8.8. Thank you for the opportunity to participate in this patient's care, please do not hesitate to contact us with any further questions or concerns. This note was generated with [email or web address] dictation software. It may contain incorrect words, spelling, and punctuation that were not noted in checking the note before signing.
[2017-12-01] MEDS: Amiodarone 200 MG Tablet PO (09:39)
[2017-12-01] MEDS: Pantoprazole Sodium 40 MG Tablet PO (09:39)
[2017-12-01] MEDS: Metoprolol Tartrate 50 MG Tablet PO ×2 (09:39→21:05)
[2017-12-01] MEDS: Iron Polysaccharide Complex 150 MG CAPSULE PO (09:39)
[2017-12-01] MEDS: Heparin Injection 5,000 UNITS/ML Syringe 5000 UNITS SC ×2 (09:39→21:05)
--- NOTE | 2017-12-01 09:43 | PN_ITS ---
Patient Problems: Active and Suspected Problems (Last Updated 11/27/17 @ 08:28 by Fahad Sesay MD) Paroxysmal A-fib (Acute) Subjective: The patient was seen and examined. She is sitting up in the chair in no acute distress. She denies any current shortness of breath or cough. States she feels better but not yet back to normal. Still having significant dyspnea on exertion. Hands very puffy. Asking when nephrology is going to come to see her. No chest pain today. Objective: Remains afebrile and hemodynamically stable. Heart rate has been in the 50s with the addition of her cardiac medications, however asymptomatic. Urine culture showing Klebsiella pneumoniae, patient on antibiotics. Influenza and blood cultures were negative. Urine strep/Legionella negative. Current lab work showing worsening of renal function. Patient was taken off Lasix. Cumulative fluid balance is + [phone]. Clinical Impression(s) from Imaging Studies Chest X-Ray 11/28/17 05:55 IMPRESSION: Persistent consolidation in the left lower lobe although there is slight improvement in the aeration of the left lower lobe. Blunting of the right costophrenic angle with mild increased markings at the right lung base. Electronically Signed: Brett Arcos MD at 9:06 EST Tel [phone], Service support , Chest CT 11/28/17 12:40 IMPRESSION: Moderate increase in the posterior and basilar left pleural effusion which now extends into the oblique fissure with major compressive atelectasis of the left lower lobe now including the superior segment. Moderate compressive atelectasis of the lingula and mild compressive atelectasis of the left upper lobe. Small, primarily subpulmonic effusion of the right chest with increased/mild compressive atelectasis of the right lower lobe. Other stable chronic findings. Continued moderate pericardial effusion and cardiomegaly. Electronically Signed: Florencia Warren MD at 15:58 EST , Service support , Abdomen/Pelvis CT 11/30/17 07:42 IMPRESSION: No evidence for small bowel obstruction. No evidence for obstructive uropathy. No evidence for acute appendicitis. Midline umbilical hernia containing fat Uncomplicated colonic diverticulosis Small bowel pleural effusions with bibasilar compressive atelectasis. Cardiomegaly with small pericardial effusion Splenomegaly T12 and L2 vertebral body compression fractures of indeterminate age. Electronically Signed: Javad Jalloh, at 9:17 EST Tel , Service support , - Physical Exam General: Alert, Oriented x3, Cooperative, No apparent distress, - - No conversational dyspnea HEENT: Atraumatic, Normocephalic Oral: Moist Mucosa, No Gingival or Mucosal Lesions/ Ulcerations Neck: Supple, No Nodes, Trachea Midline Lungs: Diminished, - - Rales throughout left lung. Rales posterior mid to lower right lung. No wheezes or rhonchi. No tachypnea, symmetric expansion. Cardiovascular: Regular rate, Regular Rhythm, Normal S1, Normal S2, No murmurs, No rub noted, No Gallop Abdomen: Bowel Sounds Present, Soft, Distended, Obese, Tender - Mildly tender upper quadrants, chronic Extremities: No clubbing, No cyanosis, Edema - 1-2+ pitting bilateral LEs. Bilat hands pitting edema, R>L Skin: - - no changes Musculoskeletal: No Tenderness to Palpation of Joints or Extremities Lymphatic: No Cervical, Supraclavicular, or Inguinal Adenopathy Neurological: Cranial nerves II-XII grossly intact, Neuro grossly intact, Motor Exam 5/5 strength throughout Psych/Mental Status: Alert and oriented to time, place, person, mood and affect Vital Signs Temp Pulse Resp BP Pulse Ox 97.7 F L 51 L 18 124/55 H 98 12/01/17 05:34 12/01/17 07:06 12/01/17 08:15 12/01/17 05:34 12/01/17 06:42 Oxygen Flow Rate 3 Oxygen Delivery Method Nasal Cannula Weight: 214 lb 15.211 oz Body Mass Index (BMI) 35.7 Intake and Output for Last 24 Hours 11/29/17 11/30/17 12/01/17 23:59 23:59 23:59 Intake Total 1573.3 / 1573.3 1038 / 1038 289 / 289 Output Total 302 / 302 Balance 1271.3 / 1271.3 1038 / 1038 289 / 289 Laboratory Tests Past 24 Hrs 11/29/17 12/01/17 12/01/17 08:10 05:05 05:05 WBC 6.2 RBC 3.07 L Hgb 8.8 L Hct 29.5 L MCV 96.1 MCH 28.7 MCHC 29.8 L RDW 16.2 H RDW Differential 56.3 H Plt Count 216 MPV 9.3 Immature Gran % (Auto) 0.500 Neut % (Auto) 76.3 H Lymph % (Auto) 14.8 L Trinity % (Auto) 6.6 Eos % (Auto) 1.8 Baso % (Auto) 0.0 Absolute Neuts (auto) 4.8 Absolute Lymphs (auto) 0.92 Total Counted Not Reportable Sodium 138 Potassium 5.0 Chloride 99 Carbon Dioxide 32.0 Anion Gap 7 BUN 84 H Creatinine 3.03 H Estim Creat Clear Calc 15.55 Est GFR (MDRD) Af Amer 20 L Est GFR (MDRD) Non-Af 16 L BUN/Creatinine Ratio 27.7 H Glucose 149 H Calcium 8.4 L Crossmatch See Detail POC Glucose 12/01/17 11/30/17 11/30/17 06:48 22:41 16:48 POC Glucose 129 H 273 H 225 H 11/30/17 11:45 POC Glucose 211 H Assessment/Plan Active and Suspected Problems (Last Updated 11/27/17 @ 08:28 by Fahad Sesay MD) Paroxysmal A-fib (Acute) RECOMMENDATIONS 1. Wean oxygen supplementation to keep saturations 88-92%. 2. Encourage incentive spirometer 3. Increase activity as tolerated 4. Continue aerosols and antibiotics 5. Cardiology following 6. Await renal consultation 7. Elevate extremities IMPRESSIONS 1. 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 This may be the etiology of patient's initial increase in FiO2 requirements. She did report significant improvement after correction of hypoglycemia yesterday. Clinical suspicion for cardiac mediated dyspnea on exertion. Unclear if patient would require significant pulmonary intervention at this time. Thoracentesis attempted earlier in admission, aborted secondary to insufficient amount of fluid. Lasix has been discontinued. 2. New onset atrial fibrillation with RVR RESOLVED > Cardiology following. Patient has reverted to normal sinus rhythm and does have a pericardial effusion. Heart rate is much better controlled today. Patient would likely benefit from right heart catheterization once euvolemic. 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 3. Acute cystitis Klebsiella pneumonia has been isolated. Patient on appropriate antibiotics. No CVA tenderness. Management per hospitalist. 4. Hyperkalemia/CKD/morbid obesity/peripheral artery occlusive disease/ crest variant of scleroderma/HTN/DM/INES/history of cerebral hemorrhage/anemia/ stroke/HLD/neuropathic pain/vitamin D deficiency/anemia Complicates care, management, recovery, and prognosis. Patient's creatinine has been elevated and continues to rise. Patient has seen Dr. Romeo in the past. Renal has been consulted. Await recommendations. Patient has received total of 2 units of packed red blood cells for hemoglobin in 7 range, today stable at 8.8. Thank you for the opportunity to participate in this patient's care, please do not hesitate to contact us with any further questions or concerns. This note was generated with [employer] dictation software. It may contain incorrect words, spelling, and punctuation that were not noted in checking the note before signing.
--- NOTE | 2017-12-01 11:25 | CASEMGMT ---
Patient was on the TCU list. [facility] would have a bed for patient. LONDON spoke with patient and her . They have decided they are going home. Patient's said they would like home health through [facility]. LONDON let Zelda BENITEZ CM know this information. LONDON did call [facility] and let her know the plan. Maci BUCHANAN
[2017-12-01 11:26] LABS: Bedside Glucose 269 mg/dL (70-110)
--- NOTE | 2017-12-01 12:15 | CASEMGMT ---
Per Estuardo CALLAHAN, pt would prefer to go home with [facility] instead of TCU. Call placed to Sussy at [facility] at this time and referral to her at this time for pt, voices understanding. Dr. Machado updated on change in disposition plan at this time. Justin BENITEZ CM
--- NOTE | 2017-12-01 12:26 | PCM.CONS.R ---
Problem List (1) JORGE (acute kidney injury) Status: Acute Consultation - Renal 12/01/17 PCP/ Referring MD: Requesting physician: Dr Machado Primary care physician: Mat Duffy Reason for Consultation:: JORGE - History of Present Illness History of Present Illness: The patient is a 72 year old F admitted to hospital with progressively worsening dyspnea. Renal service consulted for JORGE CKD stage 3 with baseline creatinine around 1.5 to 2.1 with several fluctuations. several hospitalizations in last 6 months ongoing events this hospitalizations CXR showing left sided infiltrate. CT chest - left sided effusions with compressive atelectasis. no significant edema. Echo with normal EF, diastolic dysfunction and PA pressures 51 mm UTI with klebsiella diphtheroids bacteremia - likely contamination JORGE with creatinine upto 3 and BUN 88 Says has not voided since yesterday. No other urinary complaints no contrast No NSAIDs lasix on hold now - Allergies Allergies: Allergies No Known Allergies Allergy (Verified 11/27/17 05:53) - Current Medications Current Medications: Current Medications Albuterol/Ipratropium (Duoneb) 3 ml INHALATION Q6H.RT [facility] Last Admin: 12/01/17 06:42 Dose: 3 ml Amiodarone HCl (Cordarone) 200 mg PO DAILY [facility] Last Admin: 12/01/17 09:39 Dose: 200 mg Atorvastatin Calcium (Lipitor) 40 mg PO QHS [facility] Last Admin: 11/30/17 22:42 Dose: 40 mg Bisacodyl (Dulcolax) 5 mg PO DAILY PRN PRN PRN Reason: Constipation Clonidine (Catapres) 0.1 mg PO TID [facility] Last Admin: 12/01/17 05:28 Dose: 0.1 mg Dextrose (D50w Syringe) 0 gm IV X1 PRN; Protocol PRN Reason: Hypoglycemia Gabapentin (Neurontin) 300 mg PO QHS [facility] Last Admin: 11/30/17 22:50 Dose: 300 mg Glucagon () 1 mg IM .X1 PRN PRN Reason: Hypoglycemia Guaifenesin (Robitussin) 10 ml PO Q6H PRN PRN PRN Reason: COUGH/CONGESTION Heparin Sodium (Porcine) () 5,000 units SC BID [facility] Last Admin: 12/01/17 09:39 Dose: 5,000 units Piperacillin Sod/Tazobactam Sod (Zosyn) 3.375 gm in 50 mls @ 12.5 mls/hr IV Q8 [facility] Last Admin: 12/01/17 05:26 Dose: 12.5 mls/hr Insulin Aspart (Novolog Flexpen (Bkc)) 0 units SC ACHS [facility] PRN Reason: Protocol Last Admin: 12/01/17 11:57 Dose: 2 u Insulin Detemir (Levemir (Bkc)) 39 units SC BID [facility] Last Admin: 12/01/17 09:39 Dose: 39 u Levofloxacin (Levaquin) 250 mg PO DAILY@0600 [facility] Last Admin: 12/01/17 05:37 Dose: 250 mg Metoprolol Tartrate (Lopressor (Beta Suzan)) 50 mg PO BID [facility] Last Admin: 12/01/17 09:39 Dose: 50 mg Oxycodone HCl (Oxyir) 5 mg PO Q6H PRN PRN PRN Reason: SEVERE PAIN (6-10/10) Last Admin: 11/29/17 17:58 Dose: 5 mg Pantoprazole Sodium (Protonix) 40 mg PO DAILY [facility] Last Admin: 12/01/17 09:39 Dose: 40 mg Polysaccharide Iron Complex (Ferrex 150) 150 mg PO DAILYCM [facility] Last Admin: 12/01/17 09:39 Dose: 150 mg Sodium Chloride () 5 - 30 ml IV UD PRN PRN Reason: SALINE FLUSH Last Admin: 11/27/17 21:57 Dose: 20 ml - Past Medical History Past Medical History (Chronic Problems): Chronic Problems (Last Updated 11/27/17 @ 08:28 by Fahad Sesay MD) Valvular heart disease (Chronic) Pulmonary hypertension (Chronic) HTN (hypertension) (Chronic) 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 - Social History Smoking Status: Never smoker Alcohol: None Drugs: None - Family History Maternal Family History: Family History (Last Updated 09/26/17 @ 12:38 by Jazlyn Gibson) Mother Cancer Diabetes Kidney disease Father Heart disease Diabetes Kidney disease History Items: Cancer, Diabetes, Renal Disease Paternal Family History: Family History (Last Updated 09/26/17 @ 12:38 by Jazlyn Gibson) Mother Cancer Diabetes Kidney disease Father Heart disease Diabetes Kidney disease History Items: Diabetes, Heart Disease, Renal Disease Review of Systems Constitutional: Denies: Chills, Fever, Weight Change HEENT: Denies: Head Aches, Sinus Congestion, Sinus Drainage Cardiovascular: Denies: Chest Pain, Palpitations Respiratory: Reports: Shortness of Breath. Denies: Cough, Shortness of breath at rest, Sputum production Gastrointestinal: Denies: Abdominal Pain, Nausea, Vomiting Genitourinary: Denies: Dysuria Musculoskeletal: Denies: Joint Pain, Joint Tenderness Skin: Denies: Rash, Wounds Neurological: Denies: Numbness, Tingling, Focal weakness Psychiatric: Denies: Anxiety, Depression, Homicidal Ideations, Suicidal Ideations Hematologic/ Lymphatic: Denies: Easy Bruising, Easy Bleeding Patient Problems: Active and Suspected Problems (Last Updated 11/27/17 @ 08:28 by Fahad Sesay MD) Paroxysmal A-fib (Acute) JORGE (acute kidney injury) (Acute) - Physical Exam General: Alert, Oriented x3, Cooperative HEENT: Atraumatic, PERRLA, EOMI, Normocephalic Neck: Supple, No JVD, Negative Carotid Bruits Lungs: No rales, Short of Breath Cardiovascular: Regular rate, No murmurs Abdomen: Bowel Sounds Present, Soft, Non Tender Extremities: No edema, Capillary Refill Less than 3 Seconds Skin: No rashes, No breakdown Musculoskeletal: No Tenderness to Palpation of Joints or Extremities Neurological: Cranial nerves II-XII grossly intact Psych/Mental Status: Normal Affect, Appropriate Vital Signs Temp Pulse Resp BP Pulse Ox 97.5 F L 52 L 18 124/51 H 97 12/01/17 09:36 12/01/17 11:14 12/01/17 09:36 12/01/17 09:36 12/01/17 09:36 Oxygen Flow Rate 2 Oxygen Delivery Method Nasal Cannula Weight: 97.5 kg Body Mass Index (BMI) 35.7 Intake and Output for Last 24 Hours 11/29/17 11/30/17 12/01/17 23:59 23:59 23:59 Intake Total 1573.3 / 1573.3 1038 / 1038 649 / 649 Output Total 302 / 302 Balance 1271.3 / 1271.3 1038 / 1038 649 / 649 Laboratory Tests Past 24 Hrs 11/29/17 12/01/17 12/01/17 08:10 05:05 05:05 WBC 6.2 RBC 3.07 L Hgb 8.8 L Hct 29.5 L MCV 96.1 MCH 28.7 MCHC 29.8 L RDW 16.2 H RDW Differential 56.3 H Plt Count 216 MPV 9.3 Immature Gran % (Auto) 0.500 Neut % (Auto) 76.3 H Lymph % (Auto) 14.8 L George % (Auto) 6.6 Eos % (Auto) 1.8 Baso % (Auto) 0.0 Absolute Neuts (auto) 4.8 Absolute Lymphs (auto) 0.92 Total Counted Not Reportable Sodium 138 Potassium 5.0 Chloride 99 Carbon Dioxide 32.0 Anion Gap 7 BUN 84 H Creatinine 3.03 H Estim Creat Clear Calc 15.55 Est GFR (MDRD) Af Amer 20 L Est GFR (MDRD) Non-Af 16 L BUN/Creatinine Ratio 27.7 H Glucose 149 H Calcium 8.4 L Crossmatch See Detail POC Glucose 12/01/17 12/01/17 11/30/17 11:21 06:48 22:41 POC Glucose 269 H 129 H 273 H 11/30/17 16:48 POC Glucose 225 H Assessment/Plan Active and Suspected Problems (Last Updated 11/27/17 @ 08:28 by Fahad Sesay MD) Paroxysmal A-fib (Acute) JORGE (acute kidney injury) (Acute) JORGE CKD stage 3 Baseline creatinine is around 1.5 to 2.1. Primary etiology was diabetes. sustained JORGE in hospital since admission. BP is ok UA is consistent with UTI Ct abdomen does not show any hydronephrosis. no contrast studies. No nephrotoxic agents on board right now JORGE is likely ATN. 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 s/p PRBC
--- NOTE | 2017-12-01 12:35 | CON.PCM_ITS ---
Problem List (1) JORGE (acute kidney injury) Status: Acute Consultation - Renal 12/01/17 PCP/ Referring MD: Requesting physician: Dr Machado Primary care physician: Mat Duffy Reason for Consultation:: JORGE - History of Present Illness History of Present Illness: The patient is a 72 year old F admitted to hospital with progressively worsening dyspnea. Renal service consulted for JORGE CKD stage 3 with baseline creatinine around 1.5 to 2.1 with several fluctuations. several hospitalizations in last 6 months ongoing events this hospitalizations CXR showing left sided infiltrate. CT chest - left sided effusions with compressive atelectasis. no significant edema. Echo with normal EF, diastolic dysfunction and PA pressures 51 mm UTI with klebsiella diphtheroids bacteremia - likely contamination JORGE with creatinine upto 3 and BUN 88 Says has not voided since yesterday. No other urinary complaints no contrast No NSAIDs lasix on hold now - Allergies Allergies: Allergies No Known Allergies Allergy (Verified 11/27/17 05:53) - Current Medications Current Medications: Current Medications Albuterol/Ipratropium (Duoneb) 3 ml INHALATION Q6H.RT [facility] Last Admin: 12/01/17 06:42 Dose: 3 ml Amiodarone HCl (Cordarone) 200 mg PO DAILY [facility] Last Admin: 12/01/17 09:39 Dose: 200 mg Atorvastatin Calcium (Lipitor) 40 mg PO QHS [facility] Last Admin: 11/30/17 22:42 Dose: 40 mg Bisacodyl (Dulcolax) 5 mg PO DAILY PRN PRN PRN Reason: Constipation Clonidine (Catapres) 0.1 mg PO TID [facility] Last Admin: 12/01/17 05:28 Dose: 0.1 mg Dextrose (D50w Syringe) 0 gm IV X1 PRN; Protocol PRN Reason: Hypoglycemia Gabapentin (Neurontin) 300 mg PO QHS [facility] Last Admin: 11/30/17 22:50 Dose: 300 mg Glucagon () 1 mg IM .X1 PRN PRN Reason: Hypoglycemia Guaifenesin (Robitussin) 10 ml PO Q6H PRN PRN PRN Reason: COUGH/CONGESTION Heparin Sodium (Porcine) () 5,000 units SC BID [facility] Last Admin: 12/01/17 09:39 Dose: 5,000 units Piperacillin Sod/Tazobactam Sod (Zosyn) 3.375 gm in 50 mls @ 12.5 mls/hr IV Q8 [facility] Last Admin: 12/01/17 05:26 Dose: 12.5 mls/hr Insulin Aspart (Novolog Flexpen (Bkc)) 0 units SC ACHS [facility] PRN Reason: Protocol Last Admin: 12/01/17 11:57 Dose: 2 u Insulin Detemir (Levemir (Bkc)) 39 units SC BID [facility] Last Admin: 12/01/17 09:39 Dose: 39 u Levofloxacin (Levaquin) 250 mg PO DAILY@0600 [facility] Last Admin: 12/01/17 05:37 Dose: 250 mg Metoprolol Tartrate (Lopressor (Beta Suzan)) 50 mg PO BID [facility] Last Admin: 12/01/17 09:39 Dose: 50 mg Oxycodone HCl (Oxyir) 5 mg PO Q6H PRN PRN PRN Reason: SEVERE PAIN (6-10/10) Last Admin: 11/29/17 17:58 Dose: 5 mg Pantoprazole Sodium (Protonix) 40 mg PO DAILY [facility] Last Admin: 12/01/17 09:39 Dose: 40 mg Polysaccharide Iron Complex (Ferrex 150) 150 mg PO DAILYCM [facility] Last Admin: 12/01/17 09:39 Dose: 150 mg Sodium Chloride () 5 - 30 ml IV UD PRN PRN Reason: SALINE FLUSH Last Admin: 11/27/17 21:57 Dose: 20 ml - Past Medical History Past Medical History (Chronic Problems): Chronic Problems (Last Updated 11/27/17 @ 08:28 by Fahad Sesay MD) Valvular heart disease (Chronic) Pulmonary hypertension (Chronic) HTN (hypertension) (Chronic) 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 - Social History Smoking Status: Never smoker Alcohol: None Drugs: None - Family History Maternal Family History: Family History (Last Updated 09/26/17 @ 12:38 by Jazlyn Gibson) Mother Cancer Diabetes Kidney disease Father Heart disease Diabetes Kidney disease History Items: Cancer, Diabetes, Renal Disease Paternal Family History: Family History (Last Updated 09/26/17 @ 12:38 by Jazlyn Gibson) Mother Cancer Diabetes Kidney disease Father Heart disease Diabetes Kidney disease History Items: Diabetes, Heart Disease, Renal Disease Review of Systems Constitutional: Denies: Chills, Fever, Weight Change HEENT: Denies: Head Aches, Sinus Congestion, Sinus Drainage Cardiovascular: Denies: Chest Pain, Palpitations Respiratory: Reports: Shortness of Breath. Denies: Cough, Shortness of breath at rest, Sputum production Gastrointestinal: Denies: Abdominal Pain, Nausea, Vomiting Genitourinary: Denies: Dysuria Musculoskeletal: Denies: Joint Pain, Joint Tenderness Skin: Denies: Rash, Wounds Neurological: Denies: Numbness, Tingling, Focal weakness Psychiatric: Denies: Anxiety, Depression, Homicidal Ideations, Suicidal Ideations Hematologic/ Lymphatic: Denies: Easy Bruising, Easy Bleeding Patient Problems: Active and Suspected Problems (Last Updated 11/27/17 @ 08:28 by Fahad Sesay MD) Paroxysmal A-fib (Acute) JORGE (acute kidney injury) (Acute) - Physical Exam General: Alert, Oriented x3, Cooperative HEENT: Atraumatic, PERRLA, EOMI, Normocephalic Neck: Supple, No JVD, Negative Carotid Bruits Lungs: No rales, Short of Breath Cardiovascular: Regular rate, No murmurs Abdomen: Bowel Sounds Present, Soft, Non Tender Extremities: No edema, Capillary Refill Less than 3 Seconds Skin: No rashes, No breakdown Musculoskeletal: No Tenderness to Palpation of Joints or Extremities Neurological: Cranial nerves II-XII grossly intact Psych/Mental Status: Normal Affect, Appropriate Vital Signs Temp Pulse Resp BP Pulse Ox 97.5 F L 52 L 18 124/51 H 97 12/01/17 09:36 12/01/17 11:14 12/01/17 09:36 12/01/17 09:36 12/01/17 09:36 Oxygen Flow Rate 2 Oxygen Delivery Method Nasal Cannula Weight: 97.5 kg Body Mass Index (BMI) 35.7 Intake and Output for Last 24 Hours 11/29/17 11/30/17 12/01/17 23:59 23:59 23:59 Intake Total 1573.3 / 1573.3 1038 / 1038 649 / 649 Output Total 302 / 302 Balance 1271.3 / 1271.3 1038 / 1038 649 / 649 Laboratory Tests Past 24 Hrs 11/29/17 12/01/17 12/01/17 08:10 05:05 05:05 WBC 6.2 RBC 3.07 L Hgb 8.8 L Hct 29.5 L MCV 96.1 MCH 28.7 MCHC 29.8 L RDW 16.2 H RDW Differential 56.3 H Plt Count 216 MPV 9.3 Immature Gran % (Auto) 0.500 Neut % (Auto) 76.3 H Lymph % (Auto) 14.8 L Power % (Auto) 6.6 Eos % (Auto) 1.8 Baso % (Auto) 0.0 Absolute Neuts (auto) 4.8 Absolute Lymphs (auto) 0.92 Total Counted Not Reportable Sodium 138 Potassium 5.0 Chloride 99 Carbon Dioxide 32.0 Anion Gap 7 BUN 84 H Creatinine 3.03 H Estim Creat Clear Calc 15.55 Est GFR (MDRD) Af Amer 20 L Est GFR (MDRD) Non-Af 16 L BUN/Creatinine Ratio 27.7 H Glucose 149 H Calcium 8.4 L Crossmatch See Detail POC Glucose 12/01/17 12/01/17 11/30/17 11:21 06:48 22:41 POC Glucose 269 H 129 H 273 H 11/30/17 16:48 POC Glucose 225 H Assessment/Plan Active and Suspected Problems (Last Updated 11/27/17 @ 08:28 by Fahad Sesay MD) Paroxysmal A-fib (Acute) JORGE (acute kidney injury) (Acute) JORGE CKD stage 3 Baseline creatinine is around 1.5 to 2.1. Primary etiology was diabetes. sustained JORGE in hospital since admission. BP is ok UA is consistent with UTI Ct abdomen does not show any hydronephrosis. no contrast studies. No nephrotoxic agents on board right now JORGE is likely ATN. 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 s/p PRBC
[2017-12-01] MEDS: 0.9% NaCl Peripheral Flush Adult/Peds IV ×2 (13:51→21:13)
[2017-12-01] MEDS: Ondansetron 4 MG/2 ML Vial IV ×2 (13:51→21:12)
[2017-12-01] MEDS: Atorvastatin Calcium 40 MG Tablet PO (21:05)
[2017-12-01 21:06] LABS: Bedside Glucose 209 mg/dL (70-110)
[2017-12-01] MEDS: Gabapentin 300 MG Capsule PO (21:06)
[2017-12-01 21:26] LABS: Bedside Glucose 216 mg/dL (70-110)
[2017-12-02] VITALS (22 sets, daily range): BP systolic 114–143; BP diastolic 47–70; PULSE 50–69; RESP 12–25; TEMP 36.3–37.2; O2SAT 50–99
[2017-12-02 05:37] LABS: Hematocrit 31.1 % (37-47); Hemoglobin 9.1 g/dl (12.0-15.0); Mean Corp Hgb Conc 29.3 g/gl (32-36); Mean Corpuscular Hgb 28.3 pg (27.0-32.0); Mean Corpuscular Volume 96.9 fL (81-99); Mean Platelet Vol. 9.1 fl (6.2-12.0); Platelet Count 239 K/mm3 (150-450); RBC Distribution Width CV 16.1 % (11.6-14.6); RBC Distribution Width SD 56.7 fl (35.1-43.9); Red Blood Count 3.21 M/mm3 (4.2-5.4)
[2017-12-02 05:46] LABS: Scan Indicated on CBC? Y/N NO
[2017-12-02 06:11] LABS: Anion Gap 9 (5-15); BUN 94 mg/dL (7-18); BUN/Creat Ratio 23.3 RATIO (10-20); Calcium,Total 8.2 mg/dL (8.5-10.1); Chloride 100 mmol/L (98-107); Creatinine, Serum 4.04 mg/dL (0.55-1.02); EST Glomerular Filtration Rate 12 mL/min (>60); Est Glom Filt Rate - Afr Amer 14 mL/min (>60); Estimated Creatinine Clearance 11.66 ml/min; Glucose 260 mg/dL (74-106); Magnesium 2.6 mg/dL (1.6-2.6); Potassium 5.8 mmol/L (3.5-5.1); Sodium Level 139 mmol/L (136-145)
[2017-12-02] MEDS: cloNIDine HCl 0.1 MG Tablet PO ×3 (06:34→21:23)
[2017-12-02] MEDS: levoFLOXacin 250 MG Tablet PO (06:34)
[2017-12-02 07:01] LABS: Bedside Glucose 239 mg/dL (70-110)
[2017-12-02] MEDS: Ipratropium/Albuterol Sulfate 3 ML AMPUL.NEB INHALATION ×3 (07:08→19:06)
--- NOTE | 2017-12-02 08:00 | PN.RENAL_ITS ---
Patient Problems: Active and Suspected Problems (Last Updated 11/27/17 @ 08:28 by Fahad Sesay MD) Paroxysmal A-fib (Acute) JORGE (acute kidney injury) (Acute) Subjective: drowsy today - Physical Exam General: Lethargic HEENT: Atraumatic, PERRLA, EOMI, Normocephalic Neck: Supple, No JVD, Negative Carotid Bruits Lungs: Clear to auscultation, Normal air movement Cardiovascular: Regular rate, No murmurs Abdomen: Bowel Sounds Present, Soft, Non Tender Extremities: No edema, Capillary Refill Less than 3 Seconds Skin: No rashes, No breakdown Musculoskeletal: No Tenderness to Palpation of Joints or Extremities Vital Signs Temp Pulse Resp BP Pulse Ox 98.9 F 58 L 22 H 139/57 H 95 12/02/17 02:30 12/02/17 07:08 12/02/17 03:00 12/02/17 02:30 12/02/17 03:00 Oxygen Flow Rate 3 Oxygen Delivery Method Bi-pap Weight: 97.5 kg Body Mass Index (BMI) 35.7 Intake and Output for Last 24 Hours 11/30/17 12/01/17 12/02/17 23:59 23:59 23:59 Intake Total [facility] / [facility] 1129 / 1129 Balance [facility] / 1038 1129 / 1129 Laboratory Tests Past 24 Hrs 12/02/17 12/02/17 05:10 05:10 WBC 8.0 RBC 3.21 L Hgb 9.1 L Hct 31.1 L MCV 96.9 MCH 28.3 MCHC 29.3 L RDW 16.1 H RDW Differential 56.7 H Plt Count 239 MPV 9.1 Sodium 139 Potassium 5.8 H Chloride 100 Carbon Dioxide 30.0 Anion Gap 9 BUN 94 H Creatinine 4.04 H Estim Creat Clear Calc 11.66 Est GFR (MDRD) Af Amer 14 L Est GFR (MDRD) Non-Af 12 L BUN/Creatinine Ratio 23.3 H Glucose 260 H Calcium 8.2 L Magnesium 2.6 POC Glucose 12/02/17 12/01/17 12/01/17 06:41 21:00 16:46 POC Glucose 239 H 216 H 209 H 12/01/17 11:21 POC Glucose 269 H Assessment/Plan Active and Suspected Problems (Last Updated 11/27/17 @ 08:28 by Fahad Sesay MD) Paroxysmal A-fib (Acute) JORGE (acute kidney injury) (Acute) JORGE CKD stage 3 Baseline creatinine is around 1.5 to 2.1. Primary etiology was diabetes. sustained JORGE in hospital since admission. BP is ok UA is consistent with UTI Ct abdomen does not show any hydronephrosis. no contrast studies. No nephrotoxic agents on board right now JORGE is likely ATN. bladder scan is negative. ? AIN Renal function is worse today will start IV fluids NS at [address] Machado, abx will be stopped today Hyperkalemia. Kayexalate ordered this am Anemia. s/p PRBC
--- NOTE | 2017-12-02 08:19 | CPS ---
PT 78% ON 30% FIO2 WITH BIPAP. FIO2 INCREASED TO 45%. SATURATION UP TO 91%. PT'S NURSE AWARE OF CHANGE.
--- NOTE | 2017-12-02 08:21 | CPS ---
PT'S STATES PT WEARS 3.5 LPM OXYGEN AT HOME. NURSE MADE AWARE OF PT'S SATURATION ON 3.5LPM.
[2017-12-02] MEDS: 0.9% NaCl Peripheral Flush Adult/Peds IV (08:25)
[2017-12-02] MEDS: Sodium Polystyrene Sulfonate 15 GM/60 ML UDC PO (08:25)
[2017-12-02] MEDS: 0.9% Normal Saline 1,000 ML 75 ML IV ×2 (08:25→21:43)
--- NOTE | 2017-12-02 08:38 | PCM.PROGNOTE ---
Patient Problems: Active and Suspected Problems (Last Updated 11/27/17 @ 08:28 by Fahad Sesay MD) Paroxysmal A-fib (Acute) JORGE (acute kidney injury) (Acute) Acute on chronic respiratory failure (Acute) Subjective: Patient was seen and examined. Reports she feels much worse. She has poor inspiratory effort and is tachypneic. She is 90% on 4 L of oxygen. She is very fatigued and is very drowsy today. Complains of feeling her abdomen is distended, painful. reports Dr. Freeman was in this morning and was concerned about her worsening renal function, started her on IV fluids. Remains afebrile, vitals stable. She is very weak today and unable to get out of bed. Objective: Recent lab work and imaging reviewed. Clinical Impression(s) from Imaging Studies Chest CT 11/28/17 12:40 IMPRESSION: Moderate increase in the posterior and basilar left pleural effusion which now extends into the oblique fissure with major compressive atelectasis of the left lower lobe now including the superior segment. Moderate compressive atelectasis of the lingula and mild compressive atelectasis of the left upper lobe. Small, primarily subpulmonic effusion of the right chest with increased/mild compressive atelectasis of the right lower lobe. Other stable chronic findings. Continued moderate pericardial effusion and cardiomegaly. Electronically Signed: Florencia Warren MD at 15:58 EST , Service support , Abdomen/Pelvis CT 11/30/17 07:42 IMPRESSION: No evidence for small bowel obstruction. No evidence for obstructive uropathy. No evidence for acute appendicitis. Midline umbilical hernia containing fat Uncomplicated colonic diverticulosis Small bowel pleural effusions with bibasilar compressive atelectasis. Cardiomegaly with small pericardial effusion Splenomegaly T12 and L2 vertebral body compression fractures of indeterminate age. Electronically Signed: Javad Jalloh, at 9:17 EST Tel , Service support , - Physical Exam General: Oriented x3, Cooperative, - - Semi-lethargic. Fragmented sentences with conversational dyspnea. HEENT: Atraumatic, - - Crust around eyes Oral: Moist Mucosa, No Gingival or Mucosal Lesions/ Ulcerations Neck: Supple, Trachea Midline Lungs: - - Poor inspiratory effort, diminished t/o. No appreciable wheezes or rhonchi. Scattered rales bilaterally, faint Cardiovascular: Regular rate, Regular Rhythm, Normal S1, Normal S2, No murmurs, No rub noted, No Gallop Abdomen: Bowel Sounds Present, Soft, Splenomegaly, Tender - Generalized but worse in upper quadrants, Hernia, - - Somewhat firm and distended Extremities: No cyanosis, Edema - Upper extremities Skin: - - Unchanged from previous Musculoskeletal: No Tenderness to Palpation of Joints or Extremities Lymphatic: No Cervical, Supraclavicular, or Inguinal Adenopathy Neurological: - - Strength grossly decreased, difficult to lift her arms Psych/Mental Status: - - Somewhat tremorous, semi-lethargic Vital Signs Temp Pulse Resp BP Pulse Ox 97.9 F 60 20 H 114/47 L 90 12/02/17 08:18 12/02/17 08:18 12/02/17 08:18 12/02/17 08:18 12/02/17 08:18 Oxygen Flow Rate 4 Oxygen Delivery Method Nasal Cannula Weight: 214 lb 15.211 oz Body Mass Index (BMI) 35.7 Intake and Output for Last 24 Hours 11/30/17 12/01/17 12/02/17 23:59 23:59 23:59 Intake Total [facility] 1129 / 1129 Balance [facility] / 1038 1129 / 1129 Laboratory Tests Past 24 Hrs 12/02/17 12/02/17 05:10 05:10 WBC 8.0 RBC 3.21 L Hgb 9.1 L Hct 31.1 L MCV 96.9 MCH 28.3 MCHC 29.3 L RDW 16.1 H RDW Differential 56.7 H Plt Count 239 MPV 9.1 Sodium 139 Potassium 5.8 H Chloride 100 Carbon Dioxide 30.0 Anion Gap 9 BUN 94 H Creatinine 4.04 H Estim Creat Clear Calc 11.66 Est GFR (MDRD) Af Amer 14 L Est GFR (MDRD) Non-Af 12 L BUN/Creatinine Ratio 23.3 H Glucose 260 H Calcium 8.2 L Magnesium 2.6 POC Glucose 12/02/17 12/01/17 12/01/17 06:41 21:00 16:46 POC Glucose 239 H 216 H 209 H 12/01/17 11:21 POC Glucose 269 H Assessment/Plan Active and Suspected Problems (Last Updated 11/27/17 @ 08:28 by Fahad Sesay MD) Paroxysmal A-fib (Acute) JORGE (acute kidney injury) (Acute) Acute on chronic respiratory failure (Acute) RECOMMENDATIONS 1. Wean oxygen supplementation to keep saturations 88-92%. 2. Encourage incentive spirometer 3. Increase activity as tolerated 4. Continue aerosols 5. Cardiology and nephrology following 6. Elevate extremities 7. Monitor closely for FVO 8. Patient may benefit from temporary dialysis IMPRESSIONS 1. 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 This may be the etiology of patient's initial increase in FiO2 requirements. Clinical suspicion for cardiac mediated dyspnea on exertion. Unclear if patient would require significant pulmonary intervention at this time. Thoracentesis attempted earlier in admission, aborted secondary to insufficient amount of fluid. Lasix has been discontinued. Cumulative fluid balance +[id number]. Patient diffusely edematous. Renal function progressively worsening, creatinine now 4.04 w/ BUN of 94. K+ 5.8, kaexylate given. IV fluids started this morning NS at 75 mL/hr. Appears patient is becoming more uremic. No UOP x48 hours. May benefit from temporary dialysis catheter placement/HD. 2. New onset atrial fibrillation with RVR RESOLVED > Cardiology following. Patient has reverted to normal sinus rhythm and does have a pericardial effusion. Heart rate is much better controlled. Patient would likely benefit from right/left heart catheterization once euvolemic, however renal function continues to worsen and all nephrotoxic medications have been discontinued. Hold off for now. 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 3. Acute cystitis Klebsiella pneumonia has been isolated. Patient on appropriate antibiotics. No CVA tenderness. Management per hospitalist. 4. Hyperkalemia/CKD/morbid obesity/peripheral artery occlusive disease/crest variant of scleroderma/HTN/DM/INES/history of cerebral hemorrhage/anemia/stroke/HLD/neuropathic pain/vitamin D deficiency/anemia Complicates care, management, recovery, and prognosis. Patient's creatinine has been elevated. Patient has seen Dr. Romeo in the past. Renal following, renal function continues to worsen. Patient has received total of 2 units of packed red blood cells for hemoglobin in 7 range, remains stable. Thank you for the opportunity to participate in this patient's care, please do not hesitate to contact us with any further questions or concerns. This note was generated with [employer] dictation software. It may contain incorrect words, spelling, and punctuation that were not noted in checking the note before signing.
--- NOTE | 2017-12-02 09:00 | PN_ITS ---
Patient Problems: Active and Suspected Problems (Last Updated 11/27/17 @ 08:28 by Fahad Sesay MD) Paroxysmal A-fib (Acute) JORGE (acute kidney injury) (Acute) Acute on chronic respiratory failure (Acute) Subjective: Patient was seen and examined. Reports she feels much worse. She has poor inspiratory effort and is tachypneic. She is 90% on 4 L of oxygen. She is very fatigued and is very drowsy today. Complains of feeling her abdomen is distended, painful. reports Dr. Freeman was in this morning and was concerned about her worsening renal function, started her on IV fluids. Remains afebrile, vitals stable. She is very weak today and unable to get out of bed. Objective: Recent lab work and imaging reviewed. Clinical Impression(s) from Imaging Studies Chest CT 11/28/17 12:40 IMPRESSION: Moderate increase in the posterior and basilar left pleural effusion which now extends into the oblique fissure with major compressive atelectasis of the left lower lobe now including the superior segment. Moderate compressive atelectasis of the lingula and mild compressive atelectasis of the left upper lobe. Small, primarily subpulmonic effusion of the right chest with increased/mild compressive atelectasis of the right lower lobe. Other stable chronic findings. Continued moderate pericardial effusion and cardiomegaly. Electronically Signed: Florencia Warren MD at 15:58 EST , Service support , Abdomen/Pelvis CT 11/30/17 07:42 IMPRESSION: No evidence for small bowel obstruction. No evidence for obstructive uropathy. No evidence for acute appendicitis. Midline umbilical hernia containing fat Uncomplicated colonic diverticulosis Small bowel pleural effusions with bibasilar compressive atelectasis. Cardiomegaly with small pericardial effusion Splenomegaly T12 and L2 vertebral body compression fractures of indeterminate age. Electronically Signed: Javad Jalloh, at 9:17 EST Tel , Service support , - Physical Exam General: Oriented x3, Cooperative, - - Semi-lethargic. Fragmented sentences with conversational dyspnea. HEENT: Atraumatic, - - Crust around eyes Oral: Moist Mucosa, No Gingival or Mucosal Lesions/ Ulcerations Neck: Supple, Trachea Midline Lungs: - - Poor inspiratory effort, diminished t/o. No appreciable wheezes or rhonchi. Scattered rales bilaterally, faint Cardiovascular: Regular rate, Regular Rhythm, Normal S1, Normal S2, No murmurs, No rub noted, No Gallop Abdomen: Bowel Sounds Present, Soft, Splenomegaly, Tender - Generalized but worse in upper quadrants, Hernia, - - Somewhat firm and distended Extremities: No cyanosis, Edema - Upper extremities Skin: - - Unchanged from previous Musculoskeletal: No Tenderness to Palpation of Joints or Extremities Lymphatic: No Cervical, Supraclavicular, or Inguinal Adenopathy Neurological: - - Strength grossly decreased, difficult to lift her arms Psych/Mental Status: - - Somewhat tremorous, semi-lethargic Vital Signs Temp Pulse Resp BP Pulse Ox 97.9 F 60 20 H 114/47 L 90 12/02/17 08:18 12/02/17 08:18 12/02/17 08:18 12/02/17 08:18 12/02/17 08:18 Oxygen Flow Rate 4 Oxygen Delivery Method Nasal Cannula Weight: 214 lb 15.211 oz Body Mass Index (BMI) 35.7 Intake and Output for Last 24 Hours 11/30/17 12/01/17 12/02/17 23:59 23:59 23:59 Intake Total [facility] 1129 / 1129 Balance [facility] / 1038 1129 / 1129 Laboratory Tests Past 24 Hrs 12/02/17 12/02/17 05:10 05:10 WBC 8.0 RBC 3.21 L Hgb 9.1 L Hct 31.1 L MCV 96.9 MCH 28.3 MCHC 29.3 L RDW 16.1 H RDW Differential 56.7 H Plt Count 239 MPV 9.1 Sodium 139 Potassium 5.8 H Chloride 100 Carbon Dioxide 30.0 Anion Gap 9 BUN 94 H Creatinine 4.04 H Estim Creat Clear Calc 11.66 Est GFR (MDRD) Af Amer 14 L Est GFR (MDRD) Non-Af 12 L BUN/Creatinine Ratio 23.3 H Glucose 260 H Calcium 8.2 L Magnesium 2.6 POC Glucose 12/02/17 12/01/17 12/01/17 06:41 21:00 16:46 POC Glucose 239 H 216 H 209 H 12/01/17 11:21 POC Glucose 269 H Assessment/Plan Active and Suspected Problems (Last Updated 11/27/17 @ 08:28 by Fahad Sesay MD) Paroxysmal A-fib (Acute) JORGE (acute kidney injury) (Acute) Acute on chronic respiratory failure (Acute) RECOMMENDATIONS 1. Wean oxygen supplementation to keep saturations 88-92%. 2. Encourage incentive spirometer 3. Increase activity as tolerated 4. Continue aerosols 5. Cardiology and nephrology following 6. Elevate extremities 7. Monitor closely for FVO 8. Patient may benefit from temporary dialysis IMPRESSIONS 1. 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 This may be the etiology of patient's initial increase in FiO2 requirements. Clinical suspicion for cardiac mediated dyspnea on exertion. Unclear if patient would require significant pulmonary intervention at this time. Thoracentesis attempted earlier in admission, aborted secondary to insufficient amount of fluid. Lasix has been discontinued. Cumulative fluid balance +5244. Patient diffusely edematous. Renal function progressively worsening, creatinine now 4.04 w/ BUN of 94. K+ 5.8, kaexylate given. IV fluids started this morning NS at 75 mL/hr. Appears patient is becoming more uremic. No UOP x48 hours. May benefit from temporary dialysis catheter placement/HD. 2. New onset atrial fibrillation with RVR RESOLVED > Cardiology following. Patient has reverted to normal sinus rhythm and does have a pericardial effusion. Heart rate is much better controlled. Patient would likely benefit from right/left heart catheterization once euvolemic, however renal function continues to worsen and all nephrotoxic medications have been discontinued. Hold off for now. 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 3. Acute cystitis Klebsiella pneumonia has been isolated. Patient on appropriate antibiotics. No CVA tenderness. Management per hospitalist. 4. Hyperkalemia/CKD/morbid obesity/peripheral artery occlusive disease/ crest variant of scleroderma/HTN/DM/INES/history of cerebral hemorrhage/anemia/ stroke/HLD/neuropathic pain/vitamin D deficiency/anemia Complicates care, management, recovery, and prognosis. Patient's creatinine has been elevated. Patient has seen Dr. Romeo in the past. Renal following, renal function continues to worsen. Patient has received total of 2 units of packed red blood cells for hemoglobin in 7 range, remains stable. Thank you for the opportunity to participate in this patient's care, please do not hesitate to contact us with any further questions or concerns. This note was generated with [employer] dictation software. It may contain incorrect words, spelling, and punctuation that were not noted in checking the note before signing.
[2017-12-02] MEDS: Metoprolol Tartrate 50 MG Tablet PO ×2 (09:49→21:23)
[2017-12-02] MEDS: Amiodarone 200 MG Tablet PO (09:50)
[2017-12-02] MEDS: Iron Polysaccharide Complex 150 MG CAPSULE PO (09:50)
[2017-12-02] MEDS: Heparin Injection 5,000 UNITS/ML Syringe 5000 UNITS SC ×2 (09:51→21:24)
[2017-12-02] MEDS: Pantoprazole Sodium 40 MG Tablet PO (09:51)
--- NOTE | 2017-12-02 10:46 | PN_ITS ---
Patient Problems: Active and Suspected Problems (Last Updated 11/27/17 @ 08:28 by aFhad Sesay MD) Paroxysmal A-fib (Acute) JORGE (acute kidney injury) (Acute) Acute on chronic respiratory failure (Acute) Subjective: Patients kidney function has worsened, did discuss with nephrology plan is to initiate patient on IV fluids she has seen appears to be having intermittent myoclonic jerks Objective: GENERAL: Appears ill looking HEENT: Clear conjunctiva, NECK; supple, normal thyroid, CHEST: Diminished to auscultation bilaterally, . HEART: Regular S1 S2, no audible murmurs ABDOMEN: soft, non-tender, normoactive bowel sounds, RECTAL: deferred EXTREMITIES: No clubbing, no cyanosis. GAME WARDEN: Awake, no lateralizing signs. SKIN: No rash Vitals/I&O's: Vital Signs Temp Pulse Resp BP Pulse Ox 97.4 F L 60 18 141/58 H 92 12/02/17 10:20 12/02/17 10:20 12/02/17 10:20 12/02/17 10:20 12/02/17 10:20 Oxygen Flow Rate 4 Oxygen Delivery Method Nasal Cannula Weight: 97.5 kg Body Mass Index (BMI) 35.7 Intake and Output for Last 24 Hours 11/30/17 12/01/17 12/02/17 23:59 23:59 23:59 Intake Total [facility] / [facility] 1129 / 1129 Balance [facility] / 1038 1129 / 1129 Laboratory Results 12/01/17 11:21: POC Glucose 269 H 12/01/17 16:46: POC Glucose 209 H 12/01/17 21:00: POC Glucose 216 H 12/02/17 05:10: WBC 8.0, RBC 3.21 L, Hgb 9.1 L, Hct 31.1 L, MCV 96.9, MCH 28.3, MCHC 29.3 L, RDW 16.1 H, RDW Differential 56.7 H, Plt Count 239, MPV 9.1 12/02/17 05:10: Sodium 139, Potassium 5.8 H, Chloride 100, Carbon Dioxide 30.0, Anion Gap 9, BUN 94 H, Creatinine 4.04 H, Estim Creat Clear Calc 11.66, Est GFR (MDRD) Af Amer 14 L, Est GFR (MDRD) Non-Af 12 L, BUN/Creatinine Ratio 23.3 H, Glucose 260 H, Calcium 8.2 L, Magnesium 2.6 12/02/17 06:41: POC Glucose 239 H Current Medications Albuterol/Ipratropium (Duoneb) 3 ml INHALATION Q6H.RT [facility] Last Admin: 12/02/17 07:08 Dose: 3 ml Amiodarone HCl (Cordarone) 200 mg PO DAILY [facility] Last Admin: 12/02/17 09:50 Dose: 200 mg Atorvastatin Calcium (Lipitor) 40 mg PO QHS [facility] Last Admin: 12/01/17 21:05 Dose: 40 mg Bisacodyl (Dulcolax) 5 mg PO DAILY PRN PRN PRN Reason: Constipation Clonidine (Catapres) 0.1 mg PO TID [facility] Last Admin: 12/02/17 06:34 Dose: 0.1 mg Dextrose (D50w Syringe) 0 gm IV X1 PRN; Protocol PRN Reason: Hypoglycemia Gabapentin (Neurontin) 300 mg PO QHS [facility] Last Admin: 12/01/17 21:06 Dose: 300 mg Glucagon () 1 mg IM .X1 PRN PRN Reason: Hypoglycemia Guaifenesin (Robitussin) 10 ml PO Q6H PRN PRN PRN Reason: COUGH/CONGESTION Heparin Sodium (Porcine) () 5,000 units SC BID [facility] Last Admin: 12/02/17 09:51 Dose: 5,000 units Sodium Chloride () 1,000 mls @ 75 mls/hr IV .[id number] [facility] Last Admin: 12/02/17 08:25 Dose: 75 mls/hr Insulin Aspart (Novolog Flexpen (Bkc)) 0 units SC ACHS RUBI PRN Reason: Protocol Last Admin: 12/02/17 08:25 Dose: 2 u Insulin Detemir (Levemir (Bkc)) 39 units SC BID [facility] Last Admin: 12/02/17 09:49 Dose: 39 u Levofloxacin (Levaquin) 250 mg PO DAILY@0600 [facility] Last Admin: 12/02/17 06:34 Dose: 250 mg Metoprolol Tartrate (Lopressor (Beta Suzan)) 50 mg PO BID [facility] Last Admin: 12/02/17 09:49 Dose: 50 mg Ondansetron HCl (Zofran) 4 mg IV Q6H PRN PRN PRN Reason: NAUSEA Last Admin: 12/01/17 21:12 Dose: 4 mg Oxycodone HCl (Oxyir) 5 mg PO Q6H PRN PRN PRN Reason: SEVERE PAIN (6-10/10) Last Admin: 11/29/17 17:58 Dose: 5 mg Pantoprazole Sodium (Protonix) 40 mg PO DAILY [facility] Last Admin: 12/02/17 09:51 Dose: 40 mg Polysaccharide Iron [facility] (Ferrex 150) [facility] Last Admin: 12/02/17 09:50 Dose: 150 mg Sodium Chloride () 5 - 30 ml IV UD PRN PRN Reason: SALINE FLUSH Last Admin: 12/02/17 08:25 Dose: 10 ml Assessment/Plan Active and Suspected Problems (Last Updated 11/27/17 @ 08:28 by Fahad Sesay MD) Paroxysmal A-fib (Acute) JORGE (acute kidney injury) (Acute) Acute on chronic respiratory failure (Acute) Patient is a 72-year-old lady admitted with left-sided chest pain in addition to shortness of breath imaging studies on admission demonstrated left-sided pleural effusion as well as suspected pneumonia treated to a monitored bed where patient has since been managed 1. Suspected community-acquired pneumonia involving the left lower lobe. Patient was managed with antibiotics per protocol using Levaquin Zosyn and vancomycin the latter two subsequently discontinued. Patient was also placed on supplemental oxygen titrated to keep oxygen saturation greater than 90 2. Acute cystitis with Klebsiella management Levaquin based on sensitivities 3. Moderate left-sided pleural effusion managed symptomatically diagnostic and therapeutic paracentesis not performed due to inadequate fluid 2. Acute on chronic hypoxic respiratory failure secondary to #1 and 3 5. Anemia secondary to anemia of chronic disorder patient transfused with 1 unit PRBC after patient was deemed to be symptomatic 6. Mild hyperkalemia without EKG changes. Treated per protocol 7. New onset A. fib with RVR: Seen in consultation by cardiology echo demonstrated preserved ejection fraction of 65% placed on amiodarone back to sinus rhythm as of 12/01/17 8. Chronic kidney disease stage III baseline creatinine 1.42 9. Acute kidney injury superimposed on patient's CKD stage III patient was on Lasix held with consultation placed to nephrology patient kidney function appears to be worsening Lasix still on hold case was discussed with nephrology he recommended starting patient on IV fluids. If patient azotemia continues to worsen patient may need temporary dialysis. We defer decision to nephrology. 10. Hypertension-blood pressure controlled, home medications continued with dose adjustment as needed 11. Diabetes mellitus type 2 blood sugars have remained relatively stable did continue with patient long-acting insulin in addition to Accu-Cheks before meals and at bedtime with sliding scale coverage 12. Obstructive sleep apnea 13. Morbid obesity with BMI of 35.8 weight loss advised 14. History of previous CVA 15. History of cerebral bleed status post craniotomy 16. Crest variant scleroderma per history 17. DVT prophylaxis SC heparin Code Visit Inpatient E&M: 30612 Subs Hosp L3
[2017-12-02 11:31] LABS: Bedside Glucose 275 mg/dL (70-110)
[2017-12-02 14:28] LABS: Anion Gap 8 (5-15); BUN 93 mg/dL (7-18); BUN/Creat Ratio 21.1 RATIO (10-20); Calcium,Total 8.2 mg/dL (8.5-10.1); Chloride 103 mmol/L (98-107); Creatinine, Serum 4.41 mg/dL (0.55-1.02); EST Glomerular Filtration Rate 11 mL/min (>60); Est Glom Filt Rate - Afr Amer 13 mL/min (>60); Estimated Creatinine Clearance 10.68 ml/min; Glucose 281 mg/dL (74-106); Potassium 5.6 mmol/L (3.5-5.1); Sodium Level 142 mmol/L (136-145)
[2017-12-02 16:01] LABS: Bedside Glucose 222 mg/dL (70-110)
[2017-12-02] MEDS: Atorvastatin Calcium 40 MG Tablet PO (21:23)
[2017-12-02] MEDS: Gabapentin 300 MG Capsule PO (21:24)
[2017-12-02 22:35] LABS: Bedside Glucose 214 mg/dL (70-110)
[2017-12-03] VITALS (30 sets, daily range): BP systolic 117–145; BP diastolic 46–62; PULSE 48–59; RESP 12–29; TEMP 36.6–37.1; O2SAT 87–99
[2017-12-03] MEDS: Ipratropium/Albuterol Sulfate 3 ML AMPUL.NEB INHALATION ×4 (02:37→19:09)
--- NOTE | 2017-12-03 03:33 | EKG12_ITS ---
Test Reason : ROUTINE Blood Pressure : / mmHG Vent. Rate : 058 BPM Atrial Rate : 058 BPM P-R Int : 176 ms QRS Dur : 092 ms QT Int : 482 ms P-R-T Axes : 008 046 061 degrees QTc Int : 473 ms Sinus bradycardia Low voltage QRS T wave abnormality, consider anterior ischemia Prolonged QT Abnormal ECG When compared with ECG of 28-NOV-2017 04:57, MANUAL COMPARISON REQUIRED, DATA IS UNCONFIRMED Confirmed by REX LOONEY, JUSTIN ([id number]), editorial specialist HONORIO SHEFFIELD ([id number]) on 12/03/2017 2:42:19 PM Referred By: JACK Confirmed By:JUSTIN GOODMAN MD
[2017-12-03] MEDS: oxyCODONE 5 MG Tablet PO (03:43)
[2017-12-03] MEDS: cloNIDine HCl 0.1 MG Tablet PO ×2 (05:14→21:53)
[2017-12-03] MEDS: levoFLOXacin 250 MG Tablet PO (05:14)
[2017-12-03 05:39] LABS: Absolute Lymphocyte Count 1.06 X10^3/ul (0.83-4.51); Absolute Neutrophil Count 6.3 X10^3/uL (2.0-7.7); Basophil# 0.02 X10^3/uL; Basophil% 0.2 % (0-1); Eosinophil# 0.13 X10^3/uL; Eosinophils% 1.6 % (0-5); Hematocrit 32.2 % (37-47); Hemoglobin 9.2 g/dl (12.0-15.0); Lymphocyte # 1.06 X10^3/ul (4.0); Lymphocyte % 12.9 % (19-41); Mean Corp Hgb Conc 28.6 g/gl (32-36); Mean Corpuscular Hgb 28.9 pg (27.0-32.0); Mean Corpuscular Volume 101.3 fL (81-99); Mean Platelet Vol. 9.1 fl (6.2-12.0); Monocyte# 0.62 X10^3/uL; Monocyte% 7.5 % (0-10); Neutrophil # 6.27 X10^3/uL (2.7-7.7); Neutrophil % 76.3 % (47-70); Platelet Count 227 K/mm3 (150-450); RBC Distribution Width CV 16.1 % (11.6-14.6); RBC Distribution Width SD 57.1 fl (35.1-43.9); Red Blood Count 3.18 M/mm3 (4.2-5.4); White Blood Count 8.2 K/mm3 (4.4-11.0)
[2017-12-03 05:58] LABS: POSITIVE COUNT NO; POSITIVE DIFFERENTIAL NO; POSITIVE MORPHOLOGY NO
[2017-12-03 06:15] LABS: Anion Gap 9 (5-15); BUN 97 mg/dL (7-18); BUN/Creat Ratio 19.9 RATIO (10-20); Calcium,Total 8.4 mg/dL (8.5-10.1); Chloride 102 mmol/L (98-107); Creatinine, Serum 4.88 mg/dL (0.55-1.02); EST Glomerular Filtration Rate 9 mL/min (>60); Est Glom Filt Rate - Afr Amer 11 mL/min (>60); Estimated Creatinine Clearance 9.65 ml/min; Glucose 150 mg/dL (74-106); Magnesium 2.5 mg/dL (1.6-2.6); Potassium 5.7 mmol/L (3.5-5.1); Sodium Level 141 mmol/L (136-145)
--- NOTE | 2017-12-03 06:57 | RAD_ITS ---
STUDY: X-RAY CHEST REASON FOR EXAM: Female, 72 years old. Increasing shortness of breath. TECHNIQUE: Single AP portable view of the chest. COMPARISON: Comparison is made with prior study dated November 28, 2017. FINDINGS: EKG electrodes are seen. Stable pleural parenchymal changes at the left lung base. Mild increased markings at the left lung base. Findings suggestive of a possible atelectasis and/or infiltrate in the left upper lobe. This is superimposed on CHF. There is moderate cardiac enlargement. Calcification of the mitral valve annulus. Normal mediastinum and jose f. Normal visualized pulmonary arteries. There is atherosclerotic calcification of the aortic arch with tortuosity. Normal visualized thoracic spine. Normal visualized ribs, clavicles, and shoulders. There is no demonstrated abnormality of the visualized soft tissue structures of the upper abdomen. RAD/Chest 1 View (Portable) IMPRESSION: Stable pleural parenchymal changes at the left lung base with mild degree of CHF. Questionable early left upper lobe infiltrate. Blunting of left costophrenic angle. Electronically Signed: Brett Arcos MD at 10:25 EST Tel [phone], Service support ,
[2017-12-03 07:01] LABS: Bedside Glucose 144 mg/dL (70-110)
[2017-12-03] MEDS: Heparin Injection 5,000 UNITS/ML Syringe 5000 UNITS SC ×2 (08:35→21:53)
[2017-12-03] MEDS: Amiodarone 200 MG Tablet PO (08:35)
[2017-12-03] MEDS: Iron Polysaccharide Complex 150 MG CAPSULE PO (08:35)
[2017-12-03] MEDS: Pantoprazole Sodium 40 MG Tablet PO (08:36)
[2017-12-03] MEDS: Metoprolol Tartrate 50 MG Tablet PO ×2 (08:36→21:53)
--- NOTE | 2017-12-03 08:37 | PCM.PROGNOTE ---
Patient Problems: Active and Suspected Problems (Last Updated 11/27/17 @ 08:28 by Fahad Sesay MD) Paroxysmal A-fib (Acute) JORGE (acute kidney injury) (Acute) Subjective: The patient was seen and examined. She is sitting up in bed just finishing up with breakfast. Her breathing is mildly labored. She is still drowsy but conversive. Reports intermittent cough, no sputum production. Short of breath at rest and worse with exertion. She has been incontinent of urine, nursing staff reports moderate amount. Objective: Clinical Impression(s) from Imaging Studies Chest X-Ray 11/27/17 06:08 IMPRESSION: No other recurrent airspace disease in the left mid and lower lung parenchyma likely pneumonia, component of mild to moderate left pleural effusion. Although the heart is mostly obscured, heart appears to be borderline in size possibly mildly enlarged. Electronically Signed: Selina Pickard MD at 6:52 EST , Service support , Chest CT 11/28/17 12:40 IMPRESSION: Moderate increase in the posterior and basilar left pleural effusion which now extends into the oblique fissure with major compressive atelectasis of the left lower lobe now including the superior segment. Moderate compressive atelectasis of the lingula and mild compressive atelectasis of the left upper lobe. Small, primarily subpulmonic effusion of the right chest with increased/mild compressive atelectasis of the right lower lobe. Other stable chronic findings. Continued moderate pericardial effusion and cardiomegaly. Electronically Signed: Florencia Warren MD at 15:58 EST , Service support , Abdomen/Pelvis CT 11/30/17 07:42 IMPRESSION: No evidence for small bowel obstruction. No evidence for obstructive uropathy. No evidence for acute appendicitis. Midline umbilical hernia containing fat Uncomplicated colonic diverticulosis Small bowel pleural effusions with bibasilar compressive atelectasis. Cardiomegaly with small pericardial effusion Splenomegaly T12 and L2 vertebral body compression fractures of indeterminate age. Electronically Signed: Javad Jalloh, at 9:17 EST Tel , Service support , Chest X-Ray 12/03/17 06:57 IMPRESSION: Stable pleural parenchymal changes at the left lung base with mild degree of CHF. Questionable early left upper lobe infiltrate. Blunting of left costophrenic angle. Electronically Signed: Brett Arcos MD at 10:25 EST Tel [phone], Service support , - Physical Exam General: Oriented x3, Cooperative, - - Mild respiratory distress, dyspnea with minimal activity/conversation. drowsy HEENT: Atraumatic, - - Yellow crusting around eyes, no injection Oral: Moist Mucosa, No Gingival or Mucosal Lesions/ Ulcerations Neck: Supple, No Nodes, Trachea Midline Lungs: No rales, Tachypneic, - - Diminished throughout with rhonchi, wheezing. Poor inspiratory effort Cardiovascular: Regular rate, Regular Rhythm, Normal S1, Normal S2 Abdomen: Bowel Sounds Present, Soft, - - Generalized tenderness, worse upper quadrants. Somewhat firm and distended, however unchanged from previous Extremities: No clubbing, No cyanosis, No Calf Tenderness, Edema - Upper extremities and abdominal Musculoskeletal: No Tenderness to Palpation of Joints or Extremities Lymphatic: No Cervical, Supraclavicular, or Inguinal Adenopathy Neurological: Cranial nerves II-XII grossly intact, Neuro grossly intact, - - Decreased strength throughout Psych/Mental Status: Flat Affect, - - Oriented, cooperative Vital Signs Temp Pulse Resp BP Pulse Ox 98.4 F 57 L 23 H 140/62 H 93 12/03/17 08:34 12/03/17 08:34 12/03/17 08:34 12/03/17 08:34 12/03/17 08:34 Oxygen Flow Rate 4 Oxygen Delivery Method Nasal Cannula Weight: 214 lb 15.211 oz Body Mass Index (BMI) 35.7 Intake and Output for Last 24 Hours 12/01/17 12/02/17 12/03/17 23:59 23:59 23:59 Intake Total 1129 / 1129 1724 / 1724 332 / 332 Balance 1129 / 1129 1724 / 1724 332 / 332 Laboratory Tests Past 24 Hrs 12/02/17 12/03/1718 13:55 05:15 05:15 WBC 8.2 RBC 3.18 L Hgb 9.2 L Hct 32.2 L MCV 101.3 H MCH 28.9 MCHC 28.6 L RDW 16.1 H RDW Differential 57.1 H Plt Count 227 MPV 9.1 Immature Gran % (Auto) 1.500 H Neut % (Auto) 76.3 H Lymph % (Auto) 12.9 L [place] % (Auto) 7.5 Eos % (Auto) 1.6 Baso % (Auto) 0.2 Absolute Neuts (auto) 6.3 Absolute Lymphs (auto) 1.06 Total Counted Not Reportable Sodium 142 141 Potassium 5.6 H 5.7 H Chloride 103 102 Carbon Dioxide 31.0 30.0 Anion Gap 8 9 BUN 93 H 97 H Creatinine 4.41 H 4.88 H Estim Creat Clear Calc 10.68 9.65 Est GFR (MDRD) Af Amer 13 L 11 L Est GFR (MDRD) Non-Af 11 L 9 L BUN/Creatinine Ratio 21.1 H 19.9 Glucose 281 H 150 H Calcium 8.2 L 8.4 L Magnesium 2.5 POC Glucose 12/03/17 12/02/17 12/02/17 06:55 21:10 15:53 POC Glucose 144 H 214 H 222 H 12/02/17 11:26 POC Glucose 275 H Assessment/Plan Active and Suspected Problems (Last Updated 11/27/17 @ 08:28 by Fahad Sesay MD) Paroxysmal A-fib (Acute) JORGE (acute kidney injury) (Acute) RECOMMENDATIONS 1. Wean oxygen supplementation to keep saturations 88-92%. 2. Encourage incentive spirometer 3. Increase activity as tolerated 4. Continue aerosols 5. BiPAP rescue as needed 6. Cardiology and nephrology following 7. Elevate extremities 8. Temporary dialysis catheter placement today with HD per nephrology recommendations IMPRESSIONS 1. 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 This may be the etiology of patient's initial increase in FiO2 requirements. Clinical suspicion for cardiac mediated dyspnea on exertion. Unclear if patient would require significant pulmonary intervention at this time. Thoracentesis attempted earlier in admission, aborted secondary to insufficient amount of fluid. Lasix has been discontinued. Cumulative fluid balance +7300. Patient diffusely edematous. Renal function progressively worsening, creatinine now 4.88 w/ BUN of 97. K+ has remained elevated likely due to renal function, kaexylate was given but no significant improvement. IVF stopped overnight. Appears patient is becoming more uremic and having myoclonic jerks. May benefit from temporary dialysis catheter placement/HD. Repeat chest x-ray shows stable pleural parenchymal changes at the left lung base with mild degree of CHF, questionable early PHOEBE infiltrate versus atelectasis, blunting of the left costophrenic angle. 2. New onset atrial fibrillation with RVR RESOLVED > Cardiology following. Patient has reverted to normal sinus rhythm and does have a pericardial effusion. Heart rate is much better controlled. Patient would likely benefit from right/left heart catheterization once euvolemic, however renal function continues to worsen and all nephrotoxic medications have been discontinued. Hold off for now. 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 3. Acute cystitis Klebsiella pneumonia has been isolated. Patient on appropriate antibiotics. No CVA tenderness. Management per hospitalist. 4. Hyperkalemia/CKD/morbid obesity/peripheral artery occlusive disease/crest variant of scleroderma/HTN/DM/INES/history of cerebral hemorrhage/anemia/stroke/HLD/neuropathic pain/vitamin D deficiency/anemia Complicates care, management, recovery, and prognosis. Patient's creatinine has been elevated. Patient has seen Dr. Romeo in the past. Renal following, renal function continues to worsen. Would strongly consider dialysis today. Patient has received total of 2 units of packed red blood cells for hemoglobin in 7 range, remains stable. Thank you for the opportunity to participate in this patient's care, please do not hesitate to contact us with any further questions or concerns. This note was generated with [employer] dictation software. It may contain incorrect words, spelling, and punctuation that were not noted in checking the note before signing.
--- NOTE | 2017-12-03 08:43 | PN_ITS ---
Patient Problems: Active and Suspected Problems (Last Updated 11/27/17 @ 08:28 by Fahad Sesay MD) Paroxysmal A-fib (Acute) JORGE (acute kidney injury) (Acute) Subjective: The patient was seen and examined. She is sitting up in bed just finishing up with breakfast. Her breathing is mildly labored. She is still drowsy but conversive. Reports intermittent cough, no sputum production. Short of breath at rest and worse with exertion. She has been incontinent of urine, nursing staff reports moderate amount. Objective: Clinical Impression(s) from Imaging Studies Chest X-Ray 11/27/17 06:08 IMPRESSION: No other recurrent airspace disease in the left mid and lower lung parenchyma likely pneumonia, component of mild to moderate left pleural effusion. Although the heart is mostly obscured, heart appears to be borderline in size possibly mildly enlarged. Electronically Signed: Selina Pickard MD at 6:52 EST , Service support , Chest CT 11/28/17 12:40 IMPRESSION: Moderate increase in the posterior and basilar left pleural effusion which now extends into the oblique fissure with major compressive atelectasis of the left lower lobe now including the superior segment. Moderate compressive atelectasis of the lingula and mild compressive atelectasis of the left upper lobe. Small, primarily subpulmonic effusion of the right chest with increased/mild compressive atelectasis of the right lower lobe. Other stable chronic findings. Continued moderate pericardial effusion and cardiomegaly. Electronically Signed: Florencia Warren MD at 15:58 EST , Service support , Abdomen/Pelvis CT 11/30/17 07:42 IMPRESSION: No evidence for small bowel obstruction. No evidence for obstructive uropathy. No evidence for acute appendicitis. Midline umbilical hernia containing fat Uncomplicated colonic diverticulosis Small bowel pleural effusions with bibasilar compressive atelectasis. Cardiomegaly with small pericardial effusion Splenomegaly T12 and L2 vertebral body compression fractures of indeterminate age. Electronically Signed: Javad Jalloh, at 9:17 EST Tel , Service support , Chest X-Ray 12/03/17 06:57 IMPRESSION: Stable pleural parenchymal changes at the left lung base with mild degree of CHF. Questionable early left upper lobe infiltrate. Blunting of left costophrenic angle. Electronically Signed: Brett Arcos MD at 10:25 EST Tel [phone], Service support , - Physical Exam General: Oriented x3, Cooperative, - - Mild respiratory distress, dyspnea with minimal activity/conversation. drowsy HEENT: Atraumatic, - - Yellow crusting around eyes, no injection Oral: Moist Mucosa, No Gingival or Mucosal Lesions/ Ulcerations Neck: Supple, No Nodes, Trachea Midline Lungs: No rales, Tachypneic, - - Diminished throughout with rhonchi, wheezing. Poor inspiratory effort Cardiovascular: Regular rate, Regular Rhythm, Normal S1, Normal S2 Abdomen: Bowel Sounds Present, Soft, - - Generalized tenderness, worse upper quadrants. Somewhat firm and distended, however unchanged from previous Extremities: No clubbing, No cyanosis, No Calf Tenderness, Edema - Upper extremities and abdominal Musculoskeletal: No Tenderness to Palpation of Joints or Extremities Lymphatic: No Cervical, Supraclavicular, or Inguinal Adenopathy Neurological: Cranial nerves II-XII grossly intact, Neuro grossly intact, - - Decreased strength throughout Psych/Mental Status: Flat Affect, - - Oriented, cooperative Vital Signs Temp Pulse Resp BP Pulse Ox 98.4 F 57 L 23 H 140/62 H 93 12/03/17 08:34 12/03/17 08:34 12/03/17 08:34 12/03/17 08:34 12/03/17 08:34 Oxygen Flow Rate 4 Oxygen Delivery Method Nasal Cannula Weight: 214 lb 15.211 oz Body Mass Index (BMI) 35.7 Intake and Output for Last 24 Hours 12/01/17 12/02/17 12/03/17 23:59 23:59 23:59 Intake Total 1129 / 1129 1724 / 1724 332 / 332 Balance 1129 / 1129 1724 / 1724 332 / 332 Laboratory Tests Past 24 Hrs 12/02/17 12/03/1718 13:55 05:15 05:15 WBC 8.2 RBC 3.18 L Hgb 9.2 L Hct 32.2 L MCV 101.3 H MCH 28.9 MCHC 28.6 L RDW 16.1 H RDW Differential 57.1 H Plt Count 227 MPV 9.1 Immature Gran % (Auto) 1.500 H Neut % (Auto) 76.3 H Lymph % (Auto) 12.9 L [place] % (Auto) 7.5 Eos % (Auto) 1.6 Baso % (Auto) 0.2 Absolute Neuts (auto) 6.3 Absolute Lymphs (auto) 1.06 Total Counted Not Reportable Sodium 142 141 Potassium 5.6 H 5.7 H Chloride 103 102 Carbon Dioxide 31.0 30.0 Anion Gap 8 9 BUN 93 H 97 H Creatinine 4.41 H 4.88 H Estim Creat Clear Calc 10.68 9.65 Est GFR (MDRD) Af Amer 13 L 11 L Est GFR (MDRD) Non-Af 11 L 9 L BUN/Creatinine Ratio 21.1 H 19.9 Glucose 281 H 150 H Calcium 8.2 L 8.4 L Magnesium 2.5 POC Glucose 12/03/17 12/02/17 12/02/17 06:55 21:10 15:53 POC Glucose 144 H 214 H 222 H 12/02/17 11:26 POC Glucose 275 H Assessment/Plan Active and Suspected Problems (Last Updated 11/27/17 @ 08:28 by Fahad Sesay MD) Paroxysmal A-fib (Acute) JORGE (acute kidney injury) (Acute) RECOMMENDATIONS 1. Wean oxygen supplementation to keep saturations 88-92%. 2. Encourage incentive spirometer 3. Increase activity as tolerated 4. Continue aerosols 5. BiPAP rescue as needed 6. Cardiology and nephrology following 7. Elevate extremities 8. Temporary dialysis catheter placement today with HD per nephrology recommendations IMPRESSIONS 1. 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 This may be the etiology of patient's initial increase in FiO2 requirements. Clinical suspicion for cardiac mediated dyspnea on exertion. Unclear if patient would require significant pulmonary intervention at this time. Thoracentesis attempted earlier in admission, aborted secondary to insufficient amount of fluid. Lasix has been discontinued. Cumulative fluid balance +7300. Patient diffusely edematous. Renal function progressively worsening, creatinine now 4.88 w/ BUN of 97. K+ has remained elevated likely due to renal function, kaexylate was given but no significant improvement. IVF stopped overnight. Appears patient is becoming more uremic and having myoclonic jerks. May benefit from temporary dialysis catheter placement/HD. Repeat chest x-ray shows stable pleural parenchymal changes at the left lung base with mild degree of CHF, questionable early PHOEBE infiltrate versus atelectasis, blunting of the left costophrenic angle. 2. New onset atrial fibrillation with RVR RESOLVED > Cardiology following. Patient has reverted to normal sinus rhythm and does have a pericardial effusion. Heart rate is much better controlled. Patient would likely benefit from right/left heart catheterization once euvolemic, however renal function continues to worsen and all nephrotoxic medications have been discontinued. Hold off for now. 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 3. Acute cystitis Klebsiella pneumonia has been isolated. Patient on appropriate antibiotics. No CVA tenderness. Management per hospitalist. 4. Hyperkalemia/CKD/morbid obesity/peripheral artery occlusive disease/ crest variant of scleroderma/HTN/DM/INES/history of cerebral hemorrhage/anemia/ stroke/HLD/neuropathic pain/vitamin D deficiency/anemia Complicates care, management, recovery, and prognosis. Patient's creatinine has been elevated. Patient has seen Dr. Romeo in the past. Renal following, renal function continues to worsen. Would strongly consider dialysis today. Patient has received total of 2 units of packed red blood cells for hemoglobin in 7 range, remains stable. Thank you for the opportunity to participate in this patient's care, please do not hesitate to contact us with any further questions or concerns. This note was generated with [employer] dictation software. It may contain incorrect words, spelling, and punctuation that were not noted in checking the note before signing.
[2017-12-03] MEDS: Heparin 10,000 UNITS/10 ML Vial 1000 UNITS IV (10:30)
--- NOTE | 2017-12-03 10:48 | PN_ITS ---
Patient Problems: Active and Suspected Problems (Last Updated 11/27/17 @ 08:28 by Fahad Sesay MD) Paroxysmal A-fib (Acute) JORGE (acute kidney injury) (Acute) Subjective: Seen clinical condition appears to be deteriorating exhibiting symptoms of uremia. Case was discussed with nephrology plan is for patient to undergo temporary dialysis catheter placement for initiation of dialysis Objective: GENERAL: Appears ill looking HEENT: Clear conjunctiva, NECK; supple, normal thyroid, CHEST: Diminished to auscultation bilaterally, . HEART: Regular S1 S2, no audible murmurs ABDOMEN: soft, non-tender, normoactive bowel sounds, RECTAL: deferred EXTREMITIES: No clubbing, no cyanosis. 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 SKIN: No rash Vitals/I&O's: Vital Signs Temp Pulse Resp BP Pulse Ox 98.7 F 57 L 24 H 145/58 H 91 12/03/17 10:17 12/03/17 10:17 12/03/17 10:17 12/03/17 10:17 12/03/17 10:17 Oxygen Flow Rate 5 Oxygen Delivery Method Nasal Cannula Weight: 97.5 kg Body Mass Index (BMI) 35.7 Intake and Output for Last 24 Hours 12/01/17 12/02/17 12/03/17 23:59 23:59 23:59 Intake Total 1129 / 1129 1724 / 1724 332 / 332 Balance 1129 / 1129 1724 / 1724 332 / 332 Laboratory Results 12/02/17 11:26: POC Glucose 275 H 12/02/17 13:55: Sodium 142, Potassium 5.6 H, Chloride 103, Carbon Dioxide 31.0, Anion Gap 8, BUN 93 H, Creatinine 4.41 H, Estim Creat Clear Calc 10.68, Est GFR (MDRD) Af Amer 13 L, Est GFR (MDRD) Non-Af 11 L, BUN/Creatinine Ratio 21.1 H, Glucose 281 H, Calcium 8.2 L 12/02/17 15:53: POC Glucose 222 H 12/02/17 21:10: POC Glucose 214 H 12/03/17 05:15: WBC 8.2, RBC 3.18 L, Hgb 9.2 L, Hct 32.2 L, MCV 101.3 H, MCH 28.9, MCHC 28.6 L, RDW 16.1 H, RDW Differential 57.1 H, Plt Count 227, MPV 9.1, Immature Gran % (Auto) 1.500 H, Neut % (Auto) 76.3 H, Lymph % (Auto) 12.9 L, [place] % (Auto) 7.5, Eos % (Auto) 1.6, Baso % (Auto) 0.2, Absolute Neuts (auto) 6.3, Absolute Lymphs (auto) 1.06, Total Counted Not Reportable 12/03/17 05:15: Sodium 141, Potassium 5.7 H, Chloride 102, Carbon Dioxide 30.0, Anion Gap 9, BUN 97 H, Creatinine 4.88 H, Estim Creat Clear Calc 9.65, Est GFR ( MDRD) Af Amer 11 L, Est GFR (MDRD) Non-Af 9 L, BUN/Creatinine Ratio 19.9, Glucose 150 H, Calcium 8.4 L, Magnesium 2.5 12/03/17 06:55: POC Glucose 144 H Current Medications Albuterol/Ipratropium (Duoneb) 3 ml INHALATION Q6H.RT [facility] Last Admin: 12/03/17 07:59 Dose: 3 ml Amiodarone HCl (Cordarone) 200 mg PO DAILY [facility] Last Admin: 12/03/17 08:35 Dose: 200 mg Atorvastatin Calcium (Lipitor) 40 mg PO QHS [facility] Last Admin: 12/02/17 21:23 Dose: 40 mg Bisacodyl (Dulcolax) 5 mg PO DAILY PRN PRN PRN Reason: Constipation Clonidine (Catapres) 0.1 mg PO TID [facility] Last Admin: 12/03/17 05:14 Dose: 0.1 mg Dextrose (D50w Syringe) 0 gm IV X1 PRN; Protocol PRN Reason: Hypoglycemia Gabapentin (Neurontin) 300 mg PO QHS [facility] Last Admin: 12/02/17 21:24 Dose: 300 mg Glucagon () 1 mg IM .X1 PRN PRN Reason: Hypoglycemia Guaifenesin (Robitussin) 10 ml PO Q6H PRN PRN PRN Reason: COUGH/CONGESTION Heparin Sodium (Porcine) () 5,000 units SC BID [facility] Last Admin: 12/03/17 08:35 Dose: 5,000 units Insulin Aspart (Novolog Flexpen (Bkc)) 0 units SC ACHS [facility] PRN Reason: Protocol Last Admin: 12/03/17 08:34 Dose: Not Given Insulin Detemir (Levemir (Bkc)) 39 units SC BID [facility] Last Admin: 12/03/17 08:36 Dose: 39 u Levofloxacin (Levaquin) 250 mg PO Q48H [facility] Metoprolol Tartrate (Lopressor (Beta Suzan)) 50 mg PO BID [facility] Last Admin: 12/03/17 08:36 Dose: 50 mg Ondansetron HCl (Zofran) 4 mg IV Q6H PRN PRN PRN Reason: NAUSEA Last Admin: 12/01/17 21:12 Dose: 4 mg Oxycodone HCl (Oxyir) 5 mg PO Q6H PRN PRN PRN Reason: SEVERE PAIN (6-1010) Last Admin: 12/03/17 03:43 Dose: 5 mg Pantoprazole Sodium (Protonix) 40 mg PO DAILY [facility] Last Admin: 12/03/17 08:36 Dose: 40 mg Polysaccharide Iron Complex (Ferrex 150) [facility] Last Admin: 12/03/17 08:35 Dose: 150 mg Sodium Chloride () 5 - 30 ml IV UD PRN PRN Reason: SALINE FLUSH Last Admin: 12/02/17 08:25 Dose: 10 ml Assessment/Plan Active and Suspected Problems (Last Updated 11/27/17 @ 08:28 by Fahad Sesay MD) Paroxysmal A-fib (Acute) JORGE (acute kidney injury) (Acute) Patient is a 72-year-old lady admitted with left-sided chest pain in addition to shortness of breath imaging studies on admission demonstrated left-sided pleural effusion as well as suspected pneumonia treated to a monitored bed where patient has since been managed 1. Suspected community-acquired pneumonia involving the left lower lobe. Patient was managed with antibiotics per protocol using Levaquin Zosyn and vancomycin (the latter two subsequently discontinued). Patient was also placed on supplemental oxygen titrated to keep oxygen saturation greater than 90 2. Acute kidney injury superimposed on patient's CKD stage III patient was on Lasix held with consultation placed to nephrology patient kidney function appears to be worsening Lasix still on hold case was discussed with nephrology he recommended starting patient on IV fluids. If patient azotemia continues to worsen patient may need temporary dialysis. Patient scheduled to undergo temporary dialysis catheter placement on 12/03/2017 with initiation of dialysis 3. Moderate left-sided pleural effusion managed symptomatically diagnostic and therapeutic paracentesis not performed due to inadequate fluid 2. Acute on chronic hypoxic respiratory failure secondary to #1 and 3 5. Anemia secondary to anemia of chronic disorder patient transfused with 1 unit PRBC after patient was deemed to be symptomatic 6. Mild hyperkalemia without EKG changes. Treated per protocol 7. New onset A. fib with RVR: Seen in consultation by cardiology echo demonstrated preserved ejection fraction of 65% placed on amiodarone back to sinus rhythm as of 12/01/17 8. Chronic kidney disease stage III baseline creatinine 1.42 9. Acute cystitis with Klebsiella management Levaquin based on sensitivities 10. Hypertension-blood pressure controlled, home medications continued with dose adjustment as needed 11. Diabetes mellitus type 2 blood sugars have remained relatively stable did continue with patient long-acting insulin in addition to Accu-Cheks before meals and at bedtime with sliding scale coverage 12. Obstructive sleep apnea 13. Morbid obesity with BMI of 35.8 weight loss advised 14. History of previous CVA 15. History of cerebral bleed status post craniotomy 16. Crest variant scleroderma per history 17. DVT prophylaxis SC heparin Code Visit Inpatient E&M: 96679 [facility] H[facility] L3
--- NOTE | 2017-12-03 10:52 | PCM.PN.REN ---
Patient Problems: Active and Suspected Problems (Last Updated 11/27/17 @ 08:28 by Fahad Sesay MD) Paroxysmal A-fib (Acute) JORGE (acute kidney injury) (Acute) Subjective: no new complaints looks somewhat confused breathing appears worse today - Physical Exam General: Alert, Oriented x3, Cooperative HEENT: Atraumatic, PERRLA, EOMI, Normocephalic Neck: Supple, No JVD, Negative Carotid Bruits Lungs: Clear to auscultation, Normal air movement Cardiovascular: Regular rate, No murmurs Abdomen: Bowel Sounds Present, Soft, Non Tender Extremities: No edema, Capillary Refill Less than 3 Seconds Skin: No rashes, No breakdown Musculoskeletal: No Tenderness to Palpation of Joints or Extremities Neurological: Cranial nerves II-XII grossly intact Psych/Mental Status: Normal Affect, Appropriate Vital Signs Temp Pulse Resp BP Pulse Ox 98.7 F 57 L 24 H 145/58 H 91 12/03/17 10:17 12/03/17 10:17 12/03/17 10:17 12/03/17 10:17 12/03/17 10:17 Oxygen Flow Rate 5 Oxygen Delivery Method Nasal Cannula Weight: 97.5 kg Body Mass Index (BMI) 35.7 Intake and Output for Last 24 Hours 12/01/17 12/02/17 12/03/17 23:59 23:59 23:59 Intake Total 1129 / 1129 1724 / 1724 332 / 332 Balance 1129 / 1129 1724 / 1724 332 / 332 Laboratory Tests Past 24 Hrs 12/02/17 12/03/17 12/03/17 13:55 05:15 05:15 WBC 8.2 RBC 3.18 L Hgb 9.2 L Hct 32.2 L MCV 101.3 H MCH 28.9 MCHC 28.6 L RDW 16.1 H RDW Differential 57.1 H Plt Count 227 MPV 9.1 Immature Gran % (Auto) 1.500 H Neut % (Auto) 76.3 H Lymph % (Auto) 12.9 L [place] % (Auto) 7.5 Eos % (Auto) 1.6 Baso % (Auto) 0.2 Absolute Neuts (auto) 6.3 Absolute Lymphs (auto) 1.06 Total Counted Not Reportable Sodium 142 141 Potassium 5.6 H 5.7 H Chloride 103 102 Carbon Dioxide 31.0 30.0 Anion Gap 8 9 BUN 93 H 97 H Creatinine 4.41 H 4.88 H Estim Creat Clear Calc 10.68 9.65 Est GFR (MDRD) Af Amer 13 L 11 L Est GFR (MDRD) Non-Af 11 L 9 L BUN/Creatinine Ratio 21.1 H 19.9 Glucose 281 H 150 H Calcium 8.2 L 8.4 L Magnesium 2.5 POC Glucose 12/03/17 12/02/17 12/02/17 06:55 21:10 15:53 POC Glucose 144 H 214 H 222 H 12/02/17 11:26 POC Glucose 275 H Assessment/Plan Active and Suspected Problems (Last Updated 11/27/17 @ 08:28 by Fahad Sesay MD) Paroxysmal A-fib (Acute) JORGE (acute kidney injury) (Acute) JORGE CKD stage 3 Baseline creatinine is around 1.5 to 2.1. Primary etiology of CKD was diabetes. sustained JORGE in hospital since admission. BP is ok UA is consistent with UTI Ct abdomen does not show any hydronephrosis. no contrast studies. No nephrotoxic agents on board right now JORGE is likely ATN. bladder scan is negative. ? AIN Renal function is worse today stop IV fluids will plan for dialysis today explained to patient and family. they are agreeable. Will expand work up since no particular etiology identifiable at this point Hyperkalemia. HD today Anemia. s/p PRBC
--- NOTE | 2017-12-03 11:28 | RAD_ITS ---
STUDY: X-RAY CHEST REASON FOR EXAM: Female, 72 years old. Post central line placement. TECHNIQUE: Single AP portable view of the chest. COMPARISON: Comparison is made with prior examination dated December 03, 2017 at 7:59 AM. FINDINGS: A right-sided internal jugular venous catheter has been placed. The tip is in the proximal portion of the superior vena cava. EKG electrodes are seen. The remainder the examination is unchanged. RAD/Chest 1 View (Portable) IMPRESSION: The tip of the right internal jugular venous catheter is at the junction of the superior vena cava and right atrium. Electronically Signed: Brett Arcos MD at 12:44 EST Tel [phone], Service support ,
--- NOTE | 2017-12-03 11:34 | PCM.OP.BLANK ---
Problem List (1) JORGE (acute kidney injury) Status: Acute Operative Report Date of Procedure: 12/03/17 - Temporary dialysis catheter insertion Temporary dialysis catheter line placement procedure note Indication: Hemodialysis Procedure: A time-out was completed to verify correct patient, indication, medication allergies, procedure, coagulation studies, informed consent signed, and equipment needed. The patient was placed in the supine position for a central line placement to the rt IJ vein. The patients rt neck was prepped using chlorhexidine and a full body sterile drape was applied. 1% lidocaine was used to anesthetize the surrounding skin. A 12fr 16 cm temporary dialysis catheter introduced into the internal jugular vein using the modified Seldinger technique with the assistance of ultrasound. The site was dilated twice in a stepwise fashion. The catheter was threaded smoothly over the guidewire, the guidewire was removed easily, nonpulsatile blood returned. All ports were aspirated of air and flushed with sterile saline, then locked with 1.3 cc of U 1000 heparin. The catheter was sutured in place and covered with an occlusive dressing impregnated with chlorhexidine. Post-procedure: The patient tolerated the procedure well. Vital signs remained stable. EBL 10 cc. No complications. Chest X Ray ordered to confirm tip placement and the absence of pneumothorax. Code Visit Procedures: 47499 Insert Non-tunnel CV Cath
--- NOTE | 2017-12-03 11:43 | OP.PCM_ITS ---
Problem List (1) JROGE (acute kidney injury) Status: Acute Operative Report Date of Procedure: 12/03/17 - Temporary dialysis catheter insertion Temporary dialysis catheter line placement procedure note Indication: Hemodialysis Procedure: A time-out was completed to verify correct patient, indication, medication allergies, procedure, coagulation studies, informed consent signed, and equipment needed. The patient was placed in the supine position for a central line placement to the rt IJ vein. The patients rt neck was prepped using chlorhexidine and a full body sterile drape was applied. 1% lidocaine was used to anesthetize the surrounding skin. A 12fr 16 cm temporary dialysis catheter introduced into the internal jugular vein using the modified Seldinger technique with the assistance of ultrasound. The site was dilated twice in a stepwise fashion. The catheter was threaded smoothly over the guidewire, the guidewire was removed easily, nonpulsatile blood returned. All ports were aspirated of air and flushed with sterile saline, then locked with 1.3 cc of U 1000 heparin. The catheter was sutured in place and covered with an occlusive dressing impregnated with chlorhexidine. Post-procedure: The patient tolerated the procedure well. Vital signs remained stable. EBL 10 cc. No complications. Chest X Ray ordered to confirm tip placement and the absence of pneumothorax. Code Visit Procedures: 46201 Insert Non-tunnel CV Cath
[2017-12-03 11:55] LABS: Bedside Glucose 265 mg/dL (70-110)
[2017-12-03] MEDS: Heparin 10,000 UNITS/10 ML Vial IV (16:35)
--- NOTE | 2017-12-03 16:56 | DIALYSIS ---
Hemodialysis completed as ordered. -2000ml off. Pt tolerated 1st dialysis very well. Stable t/o. Hepatitis Labs drawn while on tx. CVC closed with Heparin to each lumen fill volume only. CVC CHG dressing placed today D/I. report to Lele BENITEZ
[2017-12-03 17:25] LABS: Bedside Glucose 140 mg/dL (70-110)
[2017-12-03] MEDS: 0.9% NaCl Peripheral Flush Adult/Peds IV (21:49)
[2017-12-03] MEDS: Atorvastatin Calcium 40 MG Tablet PO (21:53)
[2017-12-03] MEDS: Gabapentin 300 MG Capsule PO (21:53)
[2017-12-03 22:11] LABS: Bedside Glucose 165 mg/dL (70-110)
[2017-12-04] VITALS (21 sets, daily range): BP systolic 120–150; BP diastolic 47–59; PULSE 46–59; RESP 12–40; TEMP 36.1–36.9; O2SAT 93–99
[2017-12-04] MEDS: Ipratropium/Albuterol Sulfate 3 ML AMPUL.NEB INHALATION ×4 (00:56→18:38)
[2017-12-04] MEDS: cloNIDine HCl 0.1 MG Tablet PO ×3 (05:19→20:59)
[2017-12-04] MEDS: oxyCODONE 5 MG Tablet PO ×2 (05:26→11:56)
[2017-12-04 05:58] LABS: Absolute Lymphocyte Count 0.92 X10^3/ul (0.83-4.51); Absolute Neutrophil Count 5.8 X10^3/uL (2.0-7.7); Basophil# 0.01 X10^3/uL; Basophil% 0.1 % (0-1); Eosinophil# 0.07 X10^3/uL; Eosinophils% 0.9 % (0-5); Hematocrit 30.6 % (37-47); Lymphocyte # 0.92 X10^3/ul (4.0); Lymphocyte % 12.4 % (19-41); Mean Corp Hgb Conc 29.4 g/gl (32-36); Mean Corpuscular Hgb 29.1 pg (27.0-32.0); Mean Platelet Vol. 8.9 fl (6.2-12.0); Monocyte# 0.55 X10^3/uL; Monocyte% 7.4 % (0-10); Neutrophil # 5.78 X10^3/uL (2.7-7.7); Platelet Count 200 K/mm3 (150-450); RBC Distribution Width CV 15.7 % (11.6-14.6); RBC Distribution Width SD 53.9 fl (35.1-43.9); Red Blood Count 3.09 M/mm3 (4.2-5.4); White Blood Count 7.4 K/mm3 (4.4-11.0)
[2017-12-04 06:01] LABS: POSITIVE COUNT NO; POSITIVE DIFFERENTIAL NO; POSITIVE MORPHOLOGY NO
[2017-12-04 06:07] LABS: Anion Gap 7 (5-15); BUN 78 mg/dL (7-18); BUN/Creat Ratio 16.9 RATIO (10-20); Calcium,Total 8.7 mg/dL (8.5-10.1); Chloride 101 mmol/L (98-107); Creatinine, Serum 4.62 mg/dL (0.55-1.02); EST Glomerular Filtration Rate 10 mL/min (>60); Est Glom Filt Rate - Afr Amer 12 mL/min (>60); Glucose 141 mg/dL (74-106); Potassium 5.2 mmol/L (3.5-5.1); Sodium Level 139 mmol/L (136-145)
[2017-12-04 06:46] LABS: Bedside Glucose 132 mg/dL (70-110)
--- NOTE | 2017-12-04 08:21 | PCM.PROGNOTE ---
Patient Problems: Active and Suspected Problems (Last Updated 11/27/17 @ 08:28 by Fahad Sesay MD) Paroxysmal A-fib (Acute) JORGE (acute kidney injury) (Acute) Subjective: The patient was seen and examined. She is drowsy again this morning, however arousable and conversive. States she has no energy and is sleeping a lot. Reports abdominal discomfort remains unchanged the last couple of days. She is short of breath with exertion. She does not have a cough or any sputum production. Objective: Recent lab data reviewed, patient remains afebrile and hemodynamically stable. Potassium still mildly elevated at 5.2. Patient I&O's are not accurate as she is incontinent of urine. Renal function with minimal improvement after dialysis. 2 L of fluid were removed yesterday during dialysis. There are plans for repeat dialysis today. - Physical Exam General: Oriented x3, Cooperative, No apparent distress, - - drowsy HEENT: Atraumatic, Normocephalic Oral: Moist Mucosa Neck: Supple, No Nodes Lungs: Diminished, - - scattered rales, improved. no rhonchi, minimal expiratory wheeze Cardiovascular: Regular rate, Regular Rhythm, Normal S1, Normal S2, No murmurs Abdomen: Bowel Sounds Present, Soft, Distended, Obese, Tender - unchanged from previous, Hernia Extremities: No clubbing, No cyanosis, Edema - UEs, abdomen Skin: - - unchanged from previous Musculoskeletal: No Tenderness to Palpation of Joints or Extremities Lymphatic: No Cervical, Supraclavicular, or Inguinal Adenopathy Neurological: Cranial nerves II-XII grossly intact, Neuro grossly intact, - - motor exam 3/3 throughout, weak but able to move all extremities Psych/Mental Status: Flat Affect, - - conversive, fatigued Vital Signs Temp Pulse Resp BP Pulse Ox 97.5 F L 50 L 22 H 134/52 H 96 12/04/17 03:47 12/04/17 07:12 12/04/17 07:00 12/04/17 05:17 12/04/17 07:00 Oxygen Flow Rate 4 Oxygen Delivery Method Nasal Cannula Weight: 215 lb 9.793 oz Body Mass Index (BMI) 35.7 Intake and Output for Last 24 Hours 12/02/17 12/03/17 12/04/17 23:59 23:59 23:59 Intake Total 1724 / 1724 792 / 792 60 60 Output Total 1999 Balance 1724 / 1724 -1208 / -1208 Laboratory Tests Past 24 Hrs 12/03/17 12/03/17 12/04/17 15:35 15:35 05:35 WBC RBC Hgb Hct MCV MCH MCHC RDW RDW Differential Plt Count MPV Immature Gran % (Auto) Neut % (Auto) Lymph % (Auto) [place] % (Auto) Eos % (Auto) Baso % (Auto) Absolute Neuts (auto) Absolute Lymphs (auto) Total Counted Sodium 139 Potassium 5.2 H Chloride 101 Carbon Dioxide 31.0 Anion Gap 7 BUN 78 H Creatinine 4.62 H Estim Creat Clear Calc 10.20 Est GFR (MDRD) Af Amer 12 L Est GFR (MDRD) Non-Af 10 L BUN/Creatinine Ratio 16.9 Glucose 141 H Calcium 8.7 Total Protein (PEP) Pending Albumin (PEP) Pending Globulin (PEP) Pending Albumin/Globulin (PEP) Pending Nnnvd-0-Bhjrubjky Pending Cjtwm-4-Xrxfqldil Pending Beta Globulins Pending Gamma Globulins Pending M-Junior Pending IgG Pending IgA Pending IgM Pending Albumin (SHANDRA) Pending Albumin/Globulin (SHANDRA) Pending Hpdgh-6-Tfndijlwx SHANDRA Pending Namwh-6-Lrtfyrgoh SHANDRA Pending Beta-Globulins (SHANDRA) Pending Gamma Globulins (SHANDRA) Pending SHANDRA M-Junior Pending c-ANCA Antibody Pending p-ANCA Antibody Pending Anti-ss DNA IgG Ab Pending Hep Bs Antigen Pending Hep B Core Total Ab Pending Hepatitis Be Antibody Pending 12/04/17 05:35 WBC 7.4 RBC 3.09 L Hgb 9.0 L Hct 30.6 L MCV 99.0 MCH 29.1 MCHC 29.4 L RDW 15.7 H RDW Differential 53.9 H Plt Count 200 MPV 8.9 Immature Gran % (Auto) 1.200 H Neut % (Auto) 78.0 H Lymph % (Auto) 12.4 L [place] % (Auto) 7.4 Eos % (Auto) 0.9 Baso % (Auto) 0.1 Absolute Neuts (auto) 5.8 Absolute Lymphs (auto) 0.92 Total Counted Not Reportable Sodium Potassium Chloride Carbon Dioxide Anion Gap BUN Creatinine Estim Creat Clear Calc Est GFR (MDRD) Af Amer Est GFR (MDRD) Non-Af BUN/Creatinine Ratio Glucose Calcium Total Protein (PEP) Albumin (PEP) Globulin (PEP) Albumin/Globulin (PEP) Vxmha-3-Cbsfwdzog Okdlc-4-Yuhnskosp Beta Globulins Gamma Globulins M-Junior IgG IgA IgM Albumin (SHANDRA) Albumin/Globulin (SHANDRA) Iwprh-8-Qxugruuda SHANDRA Rrlmz-9-Avrkmwftb SHANDRA Beta-Globulins (SHANDRA) Gamma Globulins (SHANDRA) HSANDRA M-Junior c-ANCA Antibody p-ANCA Antibody Anti-ss DNA IgG Ab Hep Bs Antigen Hep B Core Total Ab Hepatitis Be Antibody POC Glucose 12/04/17 12/03/17 12/03/17 06:38 21:45 17:17 POC Glucose 132 H 165 H 140 H 12/03/17 11:43 POC Glucose 265 H Assessment/Plan Active and Suspected Problems (Last Updated 11/27/17 @ 08:28 by Fahad Sesay MD) Paroxysmal A-fib (Acute) JORGE (acute kidney injury) (Acute) RECOMMENDATIONS 1. Wean oxygen supplementation to keep saturations 88-92%. 2. Encourage incentive spirometer 3. Increase activity as tolerated 4. Continue aerosols 5. BiPAP rescue as needed and nightly 6. Cardiology and nephrology following 7. Elevate extremities 8. HD per nephrology 9. Hold beta stephania this evening, restart at half-dose tomorrow with parameters to hold if HR <60 IMPRESSIONS 1. 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 This may be the etiology of patient's increased oxygen requirements. Clinical suspicion for cardiac mediated [place]. Thoracentesis attempted earlier in admission, aborted secondary to insufficient amount of fluid. Lasix has been discontinued secondary to renal function. + overall fluid balance, however incontinent urine. Repeat chest x-ray shows stable pleural parenchymal changes at the left lung base with mild degree of CHF, questionable early PHOEBE infiltrate versus atelectasis, blunting of the left costophrenic angle. Appears patient is becoming more uremic and having myoclonic jerks. Dialysis initiated through [facility] 12/03 w/2L fluid removal, plans for repeat dialysis today per nephrology recommendations. Continue IS, increase activity as tolerated. Continue bronchodilators. PT/OT. Oxygen requirements stable. 2. New onset atrial fibrillation with RVR RESOLVED > Cardiology following. Patient has reverted to normal sinus rhythm, has pericardial effusion. Heart rate is controlled but progressively bradycardic. Patient would likely benefit from right/left heart catheterization once euvolemic, however renal function continues to worsen and all nephrotoxic medications have been discontinued. Hold off for now. 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 Holding tonight's dose of beta stephania, patient very fatigued and weak- may be due to symptomatic bradycardia. 3. Acute cystitis Klebsiella pneumonia has been isolated. Patient on appropriate antibiotics. No CVA tenderness. Management per hospitalist. 4. Hyperkalemia/CKD/morbid obesity/peripheral artery occlusive disease/crest variant of scleroderma/HTN/DM/INES/history of cerebral hemorrhage/anemia/stroke/HLD/neuropathic pain/vitamin D deficiency/anemia Complicates care, management, recovery, and prognosis. Patient's creatinine has been elevated. Patient has seen Dr. Romeo in the past. Renal following, renal function continues to worsen. Temporary dialysis initiated. Patient has received total of 2 units of packed red blood cells for hemoglobin in 7 range, remains stable. Thank you for the opportunity to participate in this patient's care, please do not hesitate to contact us with any further questions or concerns. This note was generated with [employer] dictation software. It may contain incorrect words, spelling, and punctuation that were not noted in checking the note before signing.
[2017-12-04] MEDS: Ondansetron 4 MG/2 ML Vial IV (08:46)
[2017-12-04] MEDS: 0.9% NaCl Peripheral Flush Adult/Peds IV (08:46)
[2017-12-04] MEDS: Heparin Injection 5,000 UNITS/ML Syringe 5000 UNITS SC ×2 (08:49→20:59)
[2017-12-04] MEDS: Iron Polysaccharide Complex 150 MG CAPSULE PO (08:51)
[2017-12-04] MEDS: Metoprolol Tartrate 50 MG Tablet PO (08:52)
[2017-12-04] MEDS: Pantoprazole Sodium 40 MG Tablet PO (08:52)
[2017-12-04] MEDS: Amiodarone 200 MG Tablet PO (08:52)
--- NOTE | 2017-12-04 10:08 | PCM.PN.HOSP ---
Patient Problems: Active and Suspected Problems (Last Updated 11/27/17 @ 08:28 by Fahad Sesay MD) Paroxysmal A-fib (Acute) JORGE (acute kidney injury) (Acute) Subjective: Patient seen had first dialysis on 12/03/2017. Was placed on BiPAP during the night. Objective: GENERAL: Appears ill looking HEENT: Clear conjunctiva, NECK; supple, normal thyroid, CHEST: Diminished to auscultation bilaterally, . HEART: Regular S1 S2, no audible murmurs ABDOMEN: soft, non-tender, normoactive bowel sounds, RECTAL: deferred EXTREMITIES: No clubbing, no cyanosis. [employer]: Awake, no lateralizing signs. SKIN: No rash Vitals/I&O's: Vital Signs Temp Pulse Resp BP Pulse Ox 98.0 F 52 L 20 H 134/55 H 97 12/04/17 08:40 12/04/17 08:52 12/04/17 08:40 12/04/17 08:40 12/04/17 08:40 Oxygen Flow Rate 6 Oxygen Delivery Method Nasal Cannula Weight: 97.8 kg Body Mass Index (BMI) 35.7 Intake and Output for Last 24 Hours 12/02/17 12/03/17 12/04/17 23:59 23:59 23:59 Intake Total 1724 / 1724 792 / 792 60 / 60 Output Total 1999 Balance 1724 / 1724 -1208 / -1208 60 Laboratory Results 12/03/17 11:43: POC Glucose 265 H 12/03/17 15:35: Total Protein (PEP) Pending, Albumin (PEP) Pending, Globulin (PEP) Pending, Albumin/Globulin (PEP) Pending, Abcai-6-Yfvmcelle Pending, Jbnhq-1-Oxdayjuvm Pending, Beta Globulins Pending, Gamma Globulins Pending, M-Junior Pending, IgG Pending, IgA Pending, IgM Pending, Albumin (SHANDRA) Pending, Albumin/Globulin (SHANDRA) Pending, Tjcxj-4-Fxaynbqti SHANDRA Pending, Iddct-4-Zvkxvstnu SHANDRA Pending, Beta-Globulins (SHANDRA) Pending, Gamma Globulins (SHANDRA) Pending, SHANDRA M-Junior Pending, c-ANCA Antibody Pending, p-ANCA Antibody Pending, Anti-ss DNA IgG Ab Pending 12/03/17 15:35: Hep Bs Antigen Pending, Hep B Core Total Ab Pending, Hepatitis Be Antibody Pending 12/03/17 17:17: POC Glucose 140 H 12/03/17 21:45: POC Glucose 165 H 12/04/17 05:35: Sodium 139, Potassium 5.2 H, Chloride 101, Carbon Dioxide 31.0, Anion Gap 7, BUN 78 H, Creatinine 4.62 H, Estim Creat Clear Calc 10.20, Est GFR (MDRD) Af Amer 12 L, Est GFR (MDRD) Non-Af 10 L, BUN/Creatinine Ratio 16.9, Glucose 141 H, Calcium 8.7 12/04/17 05:35: WBC 7.4, RBC 3.09 L, Hgb 9.0 L, Hct 30.6 L, MCV 99.0, MCH 29.1, MCHC 29.4 L, RDW 15.7 H, RDW Differential 53.9 H, Plt Count 200, MPV 8.9, Immature Gran % (Auto) 1.200 H, Neut % (Auto) 78.0 H, Lymph % (Auto) 12.4 L, [place] % (Auto) 7.4, Eos % (Auto) 0.9, Baso % (Auto) 0.1, Absolute Neuts (auto) 5.8, Absolute Lymphs (auto) 0.92, Total Counted Not Reportable 12/04/17 06:38: POC Glucose 132 H Current Medications Albuterol/Ipratropium (Duoneb) 3 ml INHALATION Q6H.RT [facility] Last Admin: 12/04/17 07:00 Dose: 3 ml Amiodarone HCl (Cordarone) 200 mg PO DAILY [facility] Last Admin: 12/04/17 08:52 Dose: 200 mg Atorvastatin Calcium (Lipitor) 40 mg PO QHS [facility] Last Admin: 12/03/17 21:53 Dose: 40 mg Bisacodyl (Dulcolax) 5 mg PO DAILY PRN PRN PRN Reason: Constipation Clonidine (Catapres) 0.1 mg PO TID [facility] Last Admin: 12/04/17 05:19 Dose: 0.1 mg Dextrose (D50w Syringe) 0 gm IV X1 PRN; Protocol PRN Reason: Hypoglycemia Gabapentin (Neurontin) 300 mg PO QHS [facility] Last Admin: 12/03/17 21:53 Dose: 300 mg Glucagon () 1 mg IM .X1 PRN PRN Reason: Hypoglycemia Guaifenesin (Robitussin) 10 ml PO Q6H PRN PRN PRN Reason: COUGH/CONGESTION Heparin Sodium (Porcine) () 5,000 units SC BID [facility] Last Admin: 12/04/17 08:49 Dose: 5,000 units Insulin Aspart (Novolog Flexpen ([facility])) 0 units SC ACHS RUBI PRN Reason: Protocol Last Admin: 12/04/17 07:52 Dose: Not Given Insulin Detemir (Levemir ([facility])) 39 units SC BID [facility] Last Admin: 12/04/17 08:48 Dose: 39 u Levofloxacin (Levaquin) 250 mg PO Q48H [facility] Metoprolol Tartrate (Lopressor (Beta Suzan)) 50 mg PO BID [facility] Last Admin: 12/04/17 08:52 Dose: 50 mg Ondansetron HCl (Zofran) 4 mg IV Q6H PRN PRN PRN Reason: NAUSEA Last Admin: 12/04/17 08:46 Dose: 4 mg Oxycodone HCl (Oxyir) 5 mg PO Q6H PRN PRN PRN Reason: SEVERE PAIN (6-10/10) Last Admin: 12/04/17 05:26 Dose: 5 mg Pantoprazole Sodium (Protonix) 40 mg PO DAILY [facility] Last Admin: 12/04/17 08:52 Dose: 40 mg Polysaccharide [facility] Admin: 12/04/17 08:51 Dose: 150 mg Sodium Chloride () 5 - 30 ml IV UD PRN PRN Reason: SALINE FLUSH Last Admin: 12/04/17 08:46 Dose: 10 ml Assessment/Plan Active and Suspected Problems (Last Updated 11/27/17 @ 08:28 by Fahad Sesay MD) Paroxysmal A-fib (Acute) JORGE (acute kidney injury) (Acute) Patient is a 72-year-old lady admitted with left-sided chest pain in addition to shortness of breath imaging studies on admission demonstrated left-sided pleural effusion as well as suspected pneumonia treated to a monitored bed where patient has since been managed 1. Suspected community-acquired pneumonia involving the left lower lobe. Patient was managed with antibiotics per protocol using Levaquin Zosyn and vancomycin (the latter two subsequently discontinued). Patient was also placed on supplemental oxygen titrated to keep oxygen saturation greater than 90 2. Acute kidney injury superimposed on patient's CKD stage III patient was on Lasix held with consultation placed to nephrology patient kidney function appears to be worsening Lasix still on hold case was discussed with nephrology he recommended starting patient on IV fluids. If patient azotemia continues to worsen patient may need temporary dialysis. Patient had temporary dialysis catheter placement on 12/03/2017 with initiation of dialysis 3. Moderate left-sided pleural effusion managed symptomatically diagnostic and therapeutic paracentesis not performed due to inadequate fluid 2. Acute on chronic hypoxic respiratory failure secondary to #1 and 3 5. Anemia secondary to anemia of chronic disorder patient transfused with 1 unit PRBC after patient was deemed to be symptomatic 6. Mild hyperkalemia without EKG changes. Treated per protocol 7. New onset A. fib with RVR: Seen in consultation by cardiology echo demonstrated preserved ejection fraction of 65% placed on amiodarone back to sinus rhythm as of 12/01/17 8. Chronic kidney disease stage III baseline creatinine 1.42 9. Acute cystitis with Klebsiella management Levaquin based on sensitivities 10. Hypertension-blood pressure controlled, home medications continued with dose adjustment as needed 11. Diabetes mellitus type 2 blood sugars have remained relatively stable did continue with patient long-acting insulin in addition to Accu-Cheks before meals and at bedtime with sliding scale coverage 12. Obstructive sleep apnea 13. Morbid obesity with BMI of 35.8 weight loss advised 14. History of previous CVA 15. History of cerebral bleed status post craniotomy 16. Crest variant scleroderma per history 17. DVT prophylaxis SC heparin Code Visit Inpatient E&M: 57146 Subs Hosp L3
--- NOTE | 2017-12-04 10:20 | CASEMGMT ---
SW spoke with patient and her as she is not doing well medically and physically. They agreed to put her name on the TCU list. SW did explain that if she requires dialysis she will not be able to go to TCU as they do not take patient's on dialysis. They verbalized understanding. Patient's said TCU, but no nursing homes. Physician said patient will be here through the weekend. SW called [facility] post acute referral line and left a message with patient's name for TCU. Maci BUCHANAN
[2017-12-04 11:21] LABS: Bedside Glucose 220 mg/dL (70-110)
--- NOTE | 2017-12-04 12:01 | PCM.PN.REN ---
Patient Problems: Active and Suspected Problems (Last Updated 11/27/17 @ 08:28 by Fahad Sesay MD) Paroxysmal A-fib (Acute) JORGE (acute kidney injury) (Acute) Subjective: no new complaints mental status looks better breathing is better too - Physical Exam General: Alert, Oriented x3, Cooperative HEENT: Atraumatic, PERRLA, EOMI, Normocephalic Neck: Supple, No JVD, Negative Carotid Bruits Lungs: Clear to auscultation, Normal air movement Cardiovascular: Regular rate, No murmurs Abdomen: Bowel Sounds Present, Soft, Non Tender Extremities: No edema, Capillary Refill Less than 3 Seconds Skin: No rashes, No breakdown Musculoskeletal: No Tenderness to Palpation of Joints or Extremities Neurological: Cranial nerves II-XII grossly intact Psych/Mental Status: Normal Affect, Appropriate Vital Signs Temp Pulse Resp BP Pulse Ox 98.0 F 47 L 20 H 134/55 H 97 12/04/17 08:40 12/04/17 11:08 12/04/17 08:40 12/04/17 08:40 12/04/17 08:40 Oxygen Flow Rate 6 Oxygen Delivery Method Nasal Cannula Weight: 97.8 kg Body Mass Index (BMI) 35.7 Intake and Output for Last 24 Hours 12/02/17 12/03/17 12/04/17 23:59 23:59 23:59 Intake Total 1724 / 1724 792 / 792 310 / 310 Output Total 1999 Balance 1724 / 1724 -1208 / -1208 310 / 310 Laboratory Tests Past 24 Hrs 12/03/17 12/03/17 12/04/17 15:35 15:35 05:35 WBC RBC Hgb Hct MCV MCH MCHC RDW RDW Differential Plt Count MPV Immature Gran % (Auto) Neut % (Auto) Lymph % (Auto) [place] % (Auto) Eos % (Auto) Baso % (Auto) Absolute Neuts (auto) Absolute Lymphs (auto) Total Counted Sodium 139 Potassium 5.2 H Chloride 101 Carbon Dioxide 31.0 Anion Gap 7 BUN 78 H Creatinine 4.62 H Estim Creat Clear Calc 10.20 Est GFR (MDRD) Af Amer 12 L Est GFR (MDRD) Non-Af 10 L BUN/Creatinine Ratio 16.9 Glucose 141 H Calcium 8.7 Total Protein (PEP) Pending Albumin (PEP) Pending Globulin (PEP) Pending Albumin/Globulin (PEP) Pending Perbr-1-Dxbfaxpws Pending Jbsyi-5-Ukhgpfisx Pending Beta Globulins Pending Gamma Globulins Pending M-Junior Pending IgG Pending IgA Pending IgM Pending Albumin (SHANDRA) Pending Albumin/Globulin (SHANDRA) Pending [place]-1-Acntzyzau SHANDRA Pending Iaxhp-3-Zoqrgyoqs SHANDRA Pending Beta-Globulins (SHANDRA) Pending Gamma Globulins (SHANDRA) Pending SHANDRA M-Junior Pending c-ANCA Antibody Pending p-ANCA Antibody Pending Anti-ss DNA IgG Ab Pending Hep Bs Antigen Pending Hep B Core Total Ab Pending Hepatitis Be Antibody Pending 12/04/17 05:35 WBC 7.4 RBC 3.09 L Hgb 9.0 L Hct 30.6 L MCV 99.0 MCH 29.1 MCHC 29.4 L RDW 15.7 H RDW Differential 53.9 H Plt Count 200 MPV 8.9 Immature Gran % (Auto) 1.200 H Neut % (Auto) 78.0 H Lymph % (Auto) 12.4 L [place] % (Auto) 7.4 Eos % (Auto) 0.9 Baso % (Auto) 0.1 Absolute Neuts (auto) 5.8 Absolute Lymphs (auto) 0.92 Total Counted Not Reportable Sodium Potassium Chloride Carbon Dioxide Anion Gap BUN Creatinine Estim Creat Clear Calc Est GFR (MDRD) Af Amer Est GFR (MDRD) Non-Af BUN/Creatinine Ratio Glucose Calcium Total Protein (PEP) Albumin (PEP) Globulin (PEP) Albumin/Globulin (PEP) Kxczb-1-Hjyoxafrj Yrnad-6-[place] Beta Globulins Gamma Globulins M-Junior IgG IgA IgM Albumin (SHANDRA) Albumin/Globulin (SHANDRA) Igosa-2-Pqkaxoeus SHANDRA Rhkgc-2-Dubhpopkm SHANDRA Beta-Globulins (SHANDRA) Gamma Globulins (SHANDRA) SHANDRA M-Junior c-ANCA Antibody p-ANCA Antibody Anti-ss DNA IgG Ab Hep Bs Antigen Hep B Core Total Ab Hepatitis Be Antibody POC Glucose 12/04/17 12/04/17 12/03/17 11:17 06:38 21:45 POC Glucose 220 H 132 H 165 H 12/03/17 17:17 POC Glucose 140 H Assessment/Plan Active and Suspected Problems (Last Updated 11/27/17 @ 08:28 by Fahad Sesay MD) Paroxysmal A-fib (Acute) JORGE (acute kidney injury) (Acute) JORGE CKD stage 3 Baseline creatinine is around 1.5 to 2.1. Primary etiology of CKD was diabetes. sustained JORGE in hospital since admission. BP is ok UA is consistent with UTI Ct abdomen does not show any hydronephrosis. no contrast studies. No nephrotoxic agents on board right now JORGE is likely ATN. bladder scan is negative. ? AIN will plan for dialysis today Immunology work up pending. Hyperkalemia. better Anemia. s/p PRBC
[2017-12-04 16:41] LABS: Bedside Glucose 198 mg/dL (70-110)
[2017-12-04] MEDS: Heparin 10,000 UNITS/10 ML Vial IV (19:30)
--- NOTE | 2017-12-04 19:45 | DIALYSIS ---
HD x 2.5 hour complete. Tolerated tx well. Ran on 2k bath. UF of 2200ml. Used right IJ catheter. Catheter closed with heparin per fill volume. See tx sheet for more details. Report was given to ELI Freed.
[2017-12-04] MEDS: Atorvastatin Calcium 40 MG Tablet PO (20:59)
[2017-12-04] MEDS: Gabapentin 300 MG Capsule PO (21:00)
[2017-12-04 22:11] LABS: Bedside Glucose 264 mg/dL (70-110)
[2017-12-04] MEDS: Acetaminophen 325 MG Tablet 650 MG PO (23:02)
[2017-12-05] VITALS (22 sets, daily range): BP systolic 112–160; BP diastolic 47–82; PULSE 52–143; RESP 12–26; TEMP 36.1–37.2; O2SAT 92–100
[2017-12-05] MEDS: Ipratropium/Albuterol Sulfate 3 ML AMPUL.NEB INHALATION ×3 (01:25→13:13)
--- NOTE | 2017-12-05 02:08 | CPS ---
CHANGED MASK SIZE FROM MEDIUM TO SMALL.
[2017-12-05 05:50] LABS: Anion Gap 9 (5-15); BUN 57 mg/dL (7-18); BUN/Creat Ratio 13.6 RATIO (10-20); Calcium,Total 7.9 mg/dL (8.5-10.1); Chloride 98 mmol/L (98-107); EST Glomerular Filtration Rate 11 mL/min (>60); Est Glom Filt Rate - Afr Amer 14 mL/min (>60); Estimated Creatinine Clearance 11.22 ml/min; Glucose 165 mg/dL (74-106); Potassium 4.6 mmol/L (3.5-5.1); Sodium Level 138 mmol/L (136-145)
[2017-12-05 06:30] LABS: Absolute Neutrophil Count 5.7 X10^3/uL (2.0-7.7); Basophil# 0.02 X10^3/uL; Basophil% 0.3 % (0-1); Eosinophils% 1.4 % (0-5); Hematocrit 29.8 % (37-47); Hemoglobin 8.9 g/dl (12.0-15.0); Lymphocyte % 12.2 % (19-41); Mean Corp Hgb Conc 29.9 g/gl (32-36); Mean Corpuscular Hgb 28.7 pg (27.0-32.0); Mean Corpuscular Volume 96.1 fL (81-99); Mean Platelet Vol. 9.6 fl (6.2-12.0); Monocyte# 0.59 X10^3/uL; Neutrophil # 5.72 X10^3/uL (2.7-7.7); Neutrophil % 77.6 % (47-70); Platelet Count 186 K/mm3 (150-450); RBC Distribution Width CV 15.9 % (11.6-14.6); RBC Distribution Width SD 55.2 fl (35.1-43.9); White Blood Count 7.4 K/mm3 (4.4-11.0)
[2017-12-05 06:34] LABS: Differential Indicated SCAN CRITERIA MET; POSITIVE COUNT YES; POSITIVE DIFFERENTIAL NO; POSITIVE MORPHOLOGY NO
[2017-12-05] MEDS: levoFLOXacin 250 MG Tablet PO (06:35)
[2017-12-05] MEDS: cloNIDine HCl 0.1 MG Tablet PO ×2 (06:35→21:38)
[2017-12-05 07:11] LABS: Bedside Glucose 156 mg/dL (70-110)
[2017-12-05] MEDS: Iron Polysaccharide Complex 150 MG CAPSULE PO (08:21)
--- NOTE | 2017-12-05 08:36 | PN_ITS ---
Patient Problems: Active and Suspected Problems (Last Updated 11/27/17 @ 08:28 by Fahad Sesay MD) Paroxysmal A-fib (Acute) JORGE (acute kidney injury) (Acute) Subjective: Patient was seen and examined. Significantly improved today, states I feel great. Edema has subsided. Denies any shortness of breath or significant cough. States nephrology was in this morning and planning on repeat dialysis today. Objective: Recent lab data reviewed. Renal function slowly improving. Potassium improved. Remains afebrile and hemodynamically stable. Remains bradycardic in the 50s but improving. Hemodialysis ?2.5 hour yesterday with removal of 2200 mL of fluid. Oxygen requirements have been weaned from 6 L to 3.5 L this morning. - Physical Exam General: Alert, Oriented x3, Cooperative, No apparent distress, - - still drowsy but improved HEENT: Atraumatic, PERRLA, Normocephalic, - - Papillary edema improved, yellowish drainage/crust on eyes bilaterally. conjunctival injection. Oral: Moist Mucosa, No Gingival or Mucosal Lesions/ Ulcerations Neck: Supple, No Nodes, Trachea Midline Lungs: Diminished, - - few rhonchi, otherwise CTA. No rales or wheezing. Cardiovascular: Regular rate, Regular Rhythm, Normal S1, Normal S2, No murmurs Abdomen: Bowel Sounds Present, Soft, Non Tender, Hernia, - - distention improved Extremities: No clubbing, No cyanosis, Edema - to UEs, improved Skin: - - unchanged from previous. dry LEs Musculoskeletal: No Tenderness to Palpation of Joints or Extremities Lymphatic: No Cervical, Supraclavicular, or Inguinal Adenopathy Neurological: Neuro grossly intact Psych/Mental Status: Alert and oriented to time, place, person, mood and affect Vital Signs Temp Pulse Resp BP Pulse Ox 97.7 F L 61 19 H 128/52 H 94 12/05/17 08:18 12/05/17 08:18 12/05/17 08:18 12/05/17 08:18 12/05/17 08:18 Oxygen Flow Rate 3.5 Oxygen Delivery Method Nasal Cannula Weight: 218 lb 4.122 oz Body Mass Index (BMI) 35.7 Intake and Output for Last 24 Hours 12/03/17 12/04/17 12/05/17 23:59 23:59 23:59 Intake Total 792 / 792 310 / 310 150 / 150 Output Total 1999 2200 / 2200 Balance -1208 / -1208 -1890 / -1890 150 / 150 Laboratory Tests Past 24 Hrs 12/05/17 12/05/17 05:05 05:05 WBC 7.4 RBC 3.10 L Hgb 8.9 L Hct 29.8 L MCV 96.1 MCH 28.7 MCHC 29.9 L RDW 15.9 H RDW Differential 55.2 H Plt Count 186 MPV 9.6 Immature Gran % (Auto) 0.500 Neut % (Auto) 77.6 H Lymph % (Auto) 12.2 L [place] % (Auto) 8.0 Eos % (Auto) 1.4 Baso % (Auto) 0.3 Absolute Neuts (auto) 5.7 Absolute Lymphs (auto) 0.90 Total Counted Not Reportable Sodium 138 Potassium 4.6 Chloride 98 Carbon Dioxide 31.0 Anion Gap 9 BUN 57 H Creatinine 4.20 H Estim Creat Clear Calc 11.22 Est GFR (MDRD) Af Amer 14 L Est GFR (MDRD) Non-Af 11 L BUN/Creatinine Ratio 13.6 Glucose 165 H Calcium 7.9 L POC Glucose 12/05/17 12/04/17 12/04/17 06:39 22:00 16:33 POC Glucose 156 H 264 H 198 H 12/04/17 11:17 POC Glucose 220 H Assessment/Plan Active and Suspected Problems (Last Updated 11/27/17 @ 08:28 by Fahad Sesay MD) Paroxysmal A-fib (Acute) JORGE (acute kidney injury) (Acute) RECOMMENDATIONS 1. Wean oxygen supplementation to keep saturations 88-92%. 2. Encourage incentive spirometer 3. Increase activity as tolerated--up to chair today, PT/OT 4. Continue aerosols 5. BiPAP rescue as needed and nightly 6. Cardiology and nephrology following, HD per nephrology 7. Elevate extremities 8. Continue beta stephania at current dose 9. Initiate eye drops for conjunctivitis 10. Plan for rehab at [facility] IMPRESSIONS 1. 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 This may be the etiology of patient's increased oxygen requirements. Clinical suspicion for cardiac mediated [place]. Thoracentesis attempted earlier in admission, aborted secondary to insufficient amount of fluid. Lasix has been discontinued secondary to renal function. + overall fluid balance, however incontinent urine. Repeat chest x-ray shows stable pleural parenchymal changes at the left lung base with mild degree of CHF, questionable early PHOEBE infiltrate versus atelectasis, blunting of the left costophrenic angle. Appears patient is becoming more uremic and having myoclonic jerks. Dialysis initiated through [facility] 12/03 w/2L fluid removal 12/03, 2.2L 12/04. Plans for repeat dialysis today per nephrology recommendations. Continue IS, increase activity as tolerated. Continue bronchodilators. PT/OT. Oxygen requirements stable. 2. New onset atrial fibrillation with RVR RESOLVED > Cardiology following. Patient has reverted to normal sinus rhythm, has pericardial effusion. Heart rate is controlled but progressively bradycardic. Patient would likely benefit from right/left heart catheterization once euvolemic, however renal function continues to worsen and all nephrotoxic medications have been discontinued. Hold off for now. 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 Held beta stephania last evening and restarted this a.m. at half dose, patient tolerating well so far and HR improved to 50-60's. 3. Acute cystitis Klebsiella pneumonia has been isolated. Patient on appropriate antibiotics. No CVA tenderness. Management per hospitalist. 4. Hyperkalemia/CKD/morbid obesity/peripheral artery occlusive disease/ crest variant of scleroderma/HTN/DM/INES/history of cerebral hemorrhage/anemia/ stroke/HLD/neuropathic pain/vitamin D deficiency/anemia/conjunctivitis Complicates care, management, recovery, and prognosis. Patient's creatinine has been elevated. Patient has seen Dr. Romeo in the past. Renal following, renal function continues to worsen. Temporary dialysis initiated. Patient has received total of 2 units of packed red blood cells for hemoglobin in 7 range, remains stable. Patient may require short term mcfp at discharge. Try to increase activity since feeling better, up to chair. Eye drops ordered for conjunctivitis. Thank you for the opportunity to participate in this patient's care, please do not hesitate to contact us with any further questions or concerns. This note was generated with [employer] dictation software. It may contain incorrect words, spelling, and punctuation that were not noted in checking the note before signing.
--- NOTE | 2017-12-05 08:36 | PCM.PN.HOSP ---
Patient Problems: Active and Suspected Problems (Last Updated 11/27/17 @ 08:28 by Fahad Sesay MD) Paroxysmal A-fib (Acute) JORGE (acute kidney injury) (Acute) Subjective: Patient seen clinical condition continues to improve with her azotemia as well. Patient however remains significantly deconditioned did have a discussion with patient in the regarding the possibility of going to halfway facility therapy prior to going home Objective: GENERAL: Appears ill looking HEENT: Clear conjunctiva, NECK; supple, normal thyroid, CHEST: Diminished to auscultation bilaterally, . HEART: Regular S1 S2, no audible murmurs ABDOMEN: soft, non-tender, normoactive bowel sounds, RECTAL: deferred EXTREMITIES: No clubbing, no cyanosis. 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 SKIN: No rash Vitals/I&O's: Vital Signs Temp Pulse Resp BP Pulse Ox 97.7 F L 61 19 H 128/52 H 94 12/05/17 08:18 12/05/17 08:18 12/05/17 08:18 12/05/17 08:18 12/05/17 08:18 Oxygen Flow Rate 3.5 Oxygen Delivery Method Nasal Cannula Weight: 99 kg Body Mass Index (BMI) 35.7 Intake and Output for Last 24 Hours 12/03/17 12/04/17 12/05/17 23:59 23:59 23:59 Intake Total 792 / 792 310 / 310 150 / 150 Output Total 1999 / 1999 2200 / 2200 Balance -1208 / -1208 -1890 / -1890 150 / 150 Laboratory Results 12/04/17 11:17: POC Glucose 220 H 12/04/17 16:33: POC Glucose 198 H 12/04/17 22:00: POC Glucose 264 H 12/05/17 05:05: WBC 7.4, RBC 3.10 L, Hgb 8.9 L, Hct 29.8 L, MCV 96.1, MCH 28.7, MCHC 29.9 L, RDW 15.9 H, RDW Differential 55.2 H, Plt Count 186, MPV 9.6, Immature Gran % (Auto) 0.500, Neut % (Auto) 77.6 H, Lymph % (Auto) 12.2 L, [place] % (Auto) 8.0, Eos % (Auto) 1.4, Baso % (Auto) 0.3, Absolute Neuts (auto) 5.7, Absolute Lymphs (auto) 0.90, Total Counted Not Reportable 12/05/17 05:05: Sodium 138, Potassium 4.6, Chloride 98, Carbon Dioxide 31.0, Anion Gap 9, BUN 57 H, Creatinine 4.20 H, Estim Creat Clear Calc 11.22, Est GFR (MDRD) Af Amer 14 L, Est GFR (MDRD) Non-Af 11 L, BUN/Creatinine Ratio 13.6, Glucose 165 H, Calcium 7.9 L 12/05/17 06:39: POC Glucose 156 H Current Medications Acetaminophen (Tylenol) 650 mg PO Q4H PRN PRN PRN Reason: headache or fever Last Admin: 12/04/17 23:02 Dose: 650 mg Albuterol/Ipratropium (Duoneb) 3 ml INHALATION Q6H.RT [facility] Last Admin: 12/05/17 06:57 Dose: 3 ml Amiodarone HCl (Cordarone) 200 mg PO DAILY [facility] Last Admin: 12/04/17 08:52 Dose: 200 mg Atorvastatin Calcium (Lipitor) 40 mg PO QHS [facility] Last Admin: 12/04/17 20:59 Dose: 40 mg Bisacodyl (Dulcolax) 5 mg PO DAILY PRN PRN PRN Reason: Constipation Clonidine (Catapres) 0.1 mg PO TID [facility] Last Admin: 12/05/17 06:35 Dose: 0.1 mg Dextrose (D50w Syringe) 0 gm IV X1 PRN; Protocol PRN Reason: Hypoglycemia Gabapentin (Neurontin) 300 mg PO QHS [facility] Last Admin: 12/04/17 21:00 Dose: 300 mg Glucagon () 1 mg IM .X1 PRN PRN Reason: Hypoglycemia Guaifenesin (Robitussin) 10 ml PO Q6H PRN PRN PRN Reason: COUGH/CONGESTION Heparin Sodium (Porcine) () 5,000 units SC BID [facility] Last Admin: 12/04/17 20:59 Dose: 5,000 units Insulin Aspart (Novolog Flexpen (Bk)) 0 units SC ACHS [facility] PRN Reason: Protocol Last Admin: 12/05/17 08:21 Dose: 1 u Insulin Detemir (Levemir (Bk)) 39 units SC BID [facility] Last Admin: 12/05/17 08:21 Dose: 39 u Levofloxacin (Levaquin) 250 mg PO Q48H [facility] Last Admin: 12/05/17 06:35 Dose: 250 mg Metoprolol Tartrate (Lopressor (Beta Suzan)) 25 mg PO BID [facility] Ondansetron HCl (Zofran) 4 mg IV Q6H PRN PRN PRN Reason: NAUSEA Last Admin: 12/04/17 08:46 Dose: 4 mg Oxycodone HCl (Oxyir) 5 mg PO Q6H PRN PRN PRN Reason: SEVERE PAIN (6-1010) Last Admin: 12/04/17 11:56 Dose: 5 mg Pantoprazole Sodium (Protonix) 40 mg PO DAILY [facility] Last Admin: 12/04/17 08:52 Dose: 40 mg Polysaccharide Iron Complex (Ferrex 150) [facility] Last Admin: 12/05/17 08:21 Dose: 150 mg Sodium Chloride () 5 - 30 ml IV UD PRN PRN Reason: SALINE FLUSH Last Admin: 12/04/17 08:46 Dose: 10 ml Assessment/Plan Active and Suspected Problems (Last Updated 11/27/17 @ 08:28 by Fahad Sesay MD) Paroxysmal A-fib (Acute) JORGE (acute kidney injury) (Acute) Patient is a 72-year-old lady admitted with left-sided chest pain in addition to shortness of breath imaging studies on admission demonstrated left-sided pleural effusion as well as suspected pneumonia treated to a monitored bed where patient has since been managed 1. Suspected community-acquired pneumonia involving the left lower lobe. Patient was managed with antibiotics per protocol using Levaquin Zosyn and vancomycin (the latter two subsequently discontinued). Patient was also placed on supplemental oxygen titrated to keep oxygen saturation greater than 90 2. Acute kidney injury superimposed on patient's CKD stage III patient was on Lasix held with consultation placed to nephrology patient kidney function appears to be worsening Lasix still on hold case was discussed with nephrology he recommended starting patient on IV fluids. If patient azotemia continues to worsen patient may need temporary dialysis. Patient had temporary dialysis catheter placement on 12/03/2017 with initiation of dialysis 3. Moderate left-sided pleural effusion managed symptomatically diagnostic and therapeutic paracentesis not performed due to inadequate fluid 2. Acute on chronic hypoxic respiratory failure secondary to #1 and 3 5. Anemia secondary to anemia of chronic disorder patient transfused with 1 unit PRBC after patient was deemed to be symptomatic 6. Mild hyperkalemia without EKG changes. Treated per protocol 7. New onset A. fib with RVR: Seen in consultation by cardiology echo demonstrated preserved ejection fraction of 65% placed on amiodarone back to sinus rhythm as of 12/01/17 8. Chronic kidney disease stage III baseline creatinine 1.42 9. Acute cystitis with Klebsiella management Levaquin based on sensitivities 10. Hypertension-blood pressure controlled, home medications continued with dose adjustment as needed 11. Diabetes mellitus type 2 blood sugars have remained relatively stable did continue with patient long-acting insulin in addition to Accu-Cheks before meals and at bedtime with sliding scale coverage 12. Obstructive sleep apnea 13. Morbid obesity with BMI of 35.8 weight loss advised 14. History of previous CVA 15. History of cerebral bleed status post craniotomy 16. Crest variant scleroderma per history 17. DVT prophylaxis SC heparin Code Visit Inpatient E&M: 16986 Subs Hosp L2
--- NOTE | 2017-12-05 08:43 | PN_ITS ---
Patient Problems: Active and Suspected Problems (Last Updated 11/27/17 @ 08:28 by Fahad Sesay MD) Paroxysmal A-fib (Acute) JORGE (acute kidney injury) (Acute) Subjective: Patient seen clinical condition continues to improve with her azotemia as well. Patient however remains significantly deconditioned did have a discussion with patient in the regarding the possibility of going to group home facility therapy prior to going home Objective: GENERAL: Appears ill looking HEENT: Clear conjunctiva, NECK; supple, normal thyroid, CHEST: Diminished to auscultation bilaterally, . HEART: Regular S1 S2, no audible murmurs ABDOMEN: soft, non-tender, normoactive bowel sounds, RECTAL: deferred EXTREMITIES: No clubbing, no cyanosis. 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 SKIN: No rash Vitals/I&O's: Vital Signs Temp Pulse Resp BP Pulse Ox 97.7 F L 61 19 H 128/52 H 94 12/05/17 08:18 12/05/17 08:18 12/05/17 08:18 12/05/17 08:18 12/05/17 08:18 Oxygen Flow Rate 3.5 Oxygen Delivery Method Nasal Cannula Weight: 99 kg Body Mass Index (BMI) 35.7 Intake and Output for Last 24 Hours 12/03/17 12/04/17 12/05/17 23:59 23:59 23:59 Intake Total 792 / 792 310 / 310 150 / 150 Output Total 1999 / 1999 2200 / 2200 Balance -1208 / -1208 -1890 / -1890 150 / 150 Laboratory Results 12/04/17 11:17: POC Glucose 220 H 12/04/17 16:33: POC Glucose 198 H 12/04/17 22:00: POC Glucose 264 H 12/05/17 05:05: WBC 7.4, RBC 3.10 L, Hgb 8.9 L, Hct 29.8 L, MCV 96.1, MCH 28.7, MCHC 29.9 L, RDW 15.9 H, RDW Differential 55.2 H, Plt Count 186, MPV 9.6, Immature Gran % (Auto) 0.500, Neut % (Auto) 77.6 H, Lymph % (Auto) 12.2 L, [place] % (Auto) 8.0, Eos % (Auto) 1.4, Baso % (Auto) 0.3, Absolute Neuts (auto) 5.7, Absolute Lymphs (auto) 0.90, Total Counted Not Reportable 12/05/17 05:05: Sodium 138, Potassium 4.6, Chloride 98, Carbon Dioxide 31.0, Anion Gap 9, BUN 57 H, Creatinine 4.20 H, Estim Creat Clear Calc 11.22, Est GFR (MDRD) Af Amer 14 L, Est GFR (MDRD) Non-Af 11 L, BUN/Creatinine Ratio 13.6, Glucose 165 H, Calcium 7.9 L 12/05/17 06:39: POC Glucose 156 H Current Medications Acetaminophen (Tylenol) 650 mg PO Q4H PRN PRN PRN Reason: headache or fever Last Admin: 12/04/17 23:02 Dose: 650 mg Albuterol/Ipratropium (Duoneb) 3 ml INHALATION Q6H.RT [facility] Last Admin: 12/05/17 06:57 Dose: 3 ml Amiodarone HCl (Cordarone) 200 mg PO DAILY [facility] Last Admin: 12/04/17 08:52 Dose: 200 mg Atorvastatin Calcium (Lipitor) 40 mg PO QHS [facility] Last Admin: 12/04/17 20:59 Dose: 40 mg Bisacodyl (Dulcolax) 5 mg PO DAILY PRN PRN PRN Reason: Constipation Clonidine (Catapres) 0.1 mg PO TID [facility] Last Admin: 12/05/17 06:35 Dose: 0.1 mg Dextrose (D50w Syringe) 0 gm IV X1 PRN; Protocol PRN Reason: Hypoglycemia Gabapentin (Neurontin) 300 mg PO QHS [facility] Last Admin: 12/04/17 21:00 Dose: 300 mg Glucagon () 1 mg IM .X1 PRN PRN Reason: Hypoglycemia Guaifenesin (Robitussin) 10 ml PO Q6H PRN PRN PRN Reason: COUGH/CONGESTION Heparin Sodium (Porcine) () 5,000 units SC BID [facility] Last Admin: 12/04/17 20:59 Dose: 5,000 units Insulin Aspart (Novolog Flexpen (Bk)) 0 units SC ACHS [facility] PRN Reason: Protocol Last Admin: 12/05/17 08:21 Dose: 1 u Insulin Detemir (Levemir (Bk)) 39 units SC BID [facility] Last Admin: 12/05/17 08:21 Dose: 39 u Levofloxacin (Levaquin) 250 mg PO Q48H [facility] Last Admin: 12/05/17 06:35 Dose: 250 mg Metoprolol Tartrate (Lopressor (Beta Suzan)) 25 mg PO BID [facility] Ondansetron HCl (Zofran) 4 mg IV Q6H PRN PRN PRN Reason: NAUSEA Last Admin: 12/04/17 08:46 Dose: 4 mg Oxycodone HCl (Oxyir) 5 mg PO Q6H PRN PRN PRN Reason: SEVERE PAIN (6-1010) Last Admin: 12/04/17 11:56 Dose: 5 mg Pantoprazole Sodium (Protonix) 40 mg PO DAILY [facility] Last Admin: 12/04/17 08:52 Dose: 40 mg [facility]ysaccharide [facility] ([facility]rex 150[facility] Last Admin: 12/05/17 08:21 Dose: 150 mg Sodium Chloride () 5 - 30 ml IV UD PRN PRN Reason: SALINE FLUSH Last Admin: 12/04/17 08:46 Dose: 10 ml Assessment/Plan Active and Suspected Problems (Last Updated 11/27/17 @ 08:28 by Fahad Sesay MD) Paroxysmal A-fib (Acute) JORGE (acute kidney injury) (Acute) Patient is a 72-year-old lady admitted with left-sided chest pain in addition to shortness of breath imaging studies on admission demonstrated left-sided pleural effusion as well as suspected pneumonia treated to a monitored bed where patient has since been managed 1. Suspected community-acquired pneumonia involving the left lower lobe. Patient was managed with antibiotics per protocol using Levaquin Zosyn and vancomycin (the latter two subsequently discontinued). Patient was also placed on supplemental oxygen titrated to keep oxygen saturation greater than 90 2. Acute kidney injury superimposed on patient's CKD stage III patient was on Lasix held with consultation placed to nephrology patient kidney function appears to be worsening Lasix still on hold case was discussed with nephrology he recommended starting patient on IV fluids. If patient azotemia continues to worsen patient may need temporary dialysis. Patient had temporary dialysis catheter placement on 12/03/2017 with initiation of dialysis 3. Moderate left-sided pleural effusion managed symptomatically diagnostic and therapeutic paracentesis not performed due to inadequate fluid 2. Acute on chronic hypoxic respiratory failure secondary to #1 and 3 5. Anemia secondary to anemia of chronic disorder patient transfused with 1 unit PRBC after patient was deemed to be symptomatic 6. Mild hyperkalemia without EKG changes. Treated per protocol 7. New onset A. fib with RVR: Seen in consultation by cardiology echo demonstrated preserved ejection fraction of 65% placed on amiodarone back to sinus rhythm as of 12/01/17 8. Chronic kidney disease stage III baseline creatinine 1.42 9. Acute cystitis with Klebsiella management Levaquin based on sensitivities 10. Hypertension-blood pressure controlled, home medications continued with dose adjustment as needed 11. Diabetes mellitus type 2 blood sugars have remained relatively stable did continue with patient long-acting insulin in addition to Accu-Cheks before meals and at bedtime with sliding scale coverage 12. Obstructive sleep apnea 13. Morbid obesity with BMI of 35.8 weight loss advised 14. History of previous CVA 15. History of cerebral bleed status post craniotomy 16. Crest variant scleroderma per history 17. DVT prophylaxis SC heparin Code Visit Inpatient E&M: 13759 Subs Hosp L2
[2017-12-05] MEDS: Metoprolol Tartrate 25 MG Tablet PO ×2 (10:43→19:03)
[2017-12-05] MEDS: Pantoprazole Sodium 40 MG Tablet PO (10:43)
[2017-12-05] MEDS: Amiodarone 200 MG Tablet PO (10:44)
[2017-12-05] MEDS: Heparin Injection 5,000 UNITS/ML Syringe 5000 UNITS SC ×2 (10:44→21:38)
--- NOTE | 2017-12-05 11:16 | PCM.PN.REN ---
Patient Problems: Active and Suspected Problems (Last Updated 11/27/17 @ 08:28 by Fahad Sesay MD) Paroxysmal A-fib (Acute) JORGE (acute kidney injury) (Acute) Subjective: no new complaints - Physical Exam General: Alert, Oriented x3, Cooperative HEENT: Atraumatic, PERRLA, EOMI, Normocephalic Neck: Supple, No JVD, Negative Carotid Bruits Lungs: Clear to auscultation, Normal air movement Cardiovascular: Regular rate, No murmurs Abdomen: Bowel Sounds Present, Soft, Non Tender Extremities: No edema, Capillary Refill Less than 3 Seconds Skin: No rashes, No breakdown Musculoskeletal: No Tenderness to Palpation of Joints or Extremities Neurological: Cranial nerves II-XII grossly intact Psych/Mental Status: Normal Affect, Appropriate Vital Signs Temp Pulse Resp BP Pulse Ox 97.7 F L 63 19 H 128/52 H 94 12/05/17 08:18 12/05/17 10:43 12/05/17 08:18 12/05/17 08:18 12/05/17 08:18 Oxygen Flow Rate 3.5 Oxygen Delivery Method Nasal Cannula Weight: 99 kg Body Mass Index (BMI) 35.7 Intake and Output for Last 24 Hours 12/03/17 12/04/17 12/05/17 23:59 23:59 23:59 Intake Total 792 / 792 310 / 310 150 / 150 Output Total 1999 / 1999 2200 / 2200 Balance -1208 / -1208 -1890 / -1890 150 / 150 Laboratory Tests Past 24 Hrs 12/05/17 12/05/17 05:05 05:05 WBC 7.4 RBC 3.10 L Hgb 8.9 L Hct 29.8 L MCV 96.1 MCH 28.7 MCHC 29.9 L RDW 15.9 H RDW Differential 55.2 H Plt Count 186 MPV 9.6 Immature Gran % (Auto) 0.500 Neut % (Auto) 77.6 H Lymph % (Auto) 12.2 L [place] % (Auto) 8.0 Eos % (Auto) 1.4 Baso % (Auto) 0.3 Absolute Neuts (auto) 5.7 Absolute Lymphs (auto) 0.90 Total Counted Not Reportable Sodium 138 Potassium 4.6 Chloride 98 Carbon Dioxide 31.0 Anion Gap 9 BUN 57 H Creatinine 4.20 H Estim Creat Clear Calc 11.22 Est GFR (MDRD) Af Amer 14 L Est GFR (MDRD) Non-Af 11 L BUN/Creatinine Ratio 13.6 Glucose 165 H Calcium 7.9 L POC Glucose 12/05/17 12/04/17 12/04/17 06:39 22:00 16:33 POC Glucose 156 H 264 H 198 H 12/04/17 11:17 POC Glucose 220 H Assessment/Plan Active and Suspected Problems (Last Updated 11/27/17 @ 08:28 by Fahad Sesay MD) Paroxysmal A-fib (Acute) JORGE (acute kidney injury) (Acute) JORGE CKD stage 3 Baseline creatinine is around 1.5 to 2.1. Primary etiology of CKD was diabetes. sustained JORGE in hospital since admission. BP is ok UA is consistent with UTI Ct abdomen does not show any hydronephrosis. no contrast studies. No nephrotoxic agents on board right now JORGE is likely ATN. bladder scan is negative. ? AIN will plan for dialysis today Immunology work up pending. prior dsDNA and complements were negative. 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 SS serology was negative in the past Hyperkalemia. better Anemia. s/p PRBC
[2017-12-05 11:51] LABS: Bedside Glucose 303 mg/dL (70-110)
[2017-12-05] MEDS: Sulfacetamide Sodium 15ML OPTH.BTL 2 DRP OP ×4 (12:39→21:42)
--- NOTE | 2017-12-05 13:32 | CASEMGMT ---
This RN CM to room to speak with pt/ regarding disposition plan and dialysis transportation. Per pt and , pt is still planning on going home at this time and [facility] at that [facility]. had inquired with COMPUTER REPAIR[employer] earlier about [facility] van transport for dialysis and per Estuardo CALLAHAN, van transport will not accomodate this at this time. Pt/ updated at this time and states that they will just get a cab to dialysis and states no concerns. This ELI STARR advised pt and that we would follow PT/OT and would be working on setting up dialysis, voice understanding. Pt/ state no further concerns/needs at this time. Estuardo CALLAHAN updated at this time, voices understanding. SStalbin BENITEZ CM
--- NOTE | 2017-12-05 14:26 | CASEMGMT ---
Referral faxed to [facility] at this time. Will await return call for set up. Per Dr. Machado, pt will most likely be here through the weekend. Justin BENITEZ CM
--- NOTE | 2017-12-05 15:31 | CASEMGMT ---
Pt's requesting to speak this RN CM. This RN CM to bedside and pt's states that he found a friend that will assist them and transport pt to dialysis. SStalbin RN CM
[2017-12-05 16:09] LABS: HEPATITIS B SURFACE AG Negative (Negative); Hepatitis Be Ab Negative (Negative)
--- NOTE | 2017-12-05 16:21 | CASEMGMT ---
Received a call from [facility] and answered a couple questions for them at this time regarding dialysis plan and clarified information off the face sheet. Per [facility] intake, they will fax chair date/times as soon as obtained. Justin BENITEZ CM
--- NOTE | 2017-12-05 18:42 | EKG12_ITS ---
Test Reason : CP Blood Pressure : / mmHG Vent. Rate : 053 BPM Atrial Rate : 053 BPM P-R Int : 156 ms QRS Dur : 086 ms QT Int : 532 ms P-R-T Axes : 000 084 142 degrees QTc Int : 499 ms Sinus bradycardia Lateral infarct , age undetermined T wave abnormality, consider anterior ischemia Abnormal ECG When compared with ECG of 29-NOV-2017 10:45, MANUAL COMPARISON REQUIRED, DATA IS UNCONFIRMED Confirmed by REX LOONEY, JUSTIN ([id number]), international editorial producer HONORIO SHEFFIELD ([id number]) on 12/10/2017 1:24:32 PM Referred By: DR ALVARADO Confirmed By:JUSTIN GOODMAN MD
--- NOTE | 2017-12-05 18:43 | DIALYSIS ---
HD x 3.5 hours complete. Tolerated tx fairly well. Ran on 2k bath. UF of 2200ml. Used right IJ catheter. Catheter closed with heparin per fill volume. See tx sheet for more details. Report was given to ELI Hutchinson.
[2017-12-05 19:11] LABS: Bedside Glucose 145 mg/dL (70-110)
[2017-12-05] MEDS: dilTIAZem 25 MG/5 ML Vial 10 MG IV BOLUS (20:05)
[2017-12-05] MEDS: Atorvastatin Calcium 40 MG Tablet PO (21:40)
[2017-12-05] MEDS: Gabapentin 300 MG Capsule PO (21:41)
--- NOTE | 2017-12-05 22:59 | EKG12_ITS ---
Test Reason : RHYTHM CHANGE Blood Pressure : / mmHG Vent. Rate : 064 BPM Atrial Rate : 064 BPM P-R Int : 144 ms QRS Dur : 082 ms QT Int : 420 ms P-R-T Axes : 059 024 043 degrees QTc Int : 433 ms Normal sinus rhythm Normal ECG When compared with ECG of 05-DEC-2017 18:49, MANUAL COMPARISON REQUIRED, DATA IS UNCONFIRMED Confirmed by REX LOONEY, JUSTIN ([id number]), clinical editor HONORIO SHEFFIELD ([id number]) on 12/10/2017 1:47:12 PM Referred By: SANDEE Confirmed By:JUSTIN GOODMAN MD
[2017-12-05 23:16] LABS: Bedside Glucose 164 mg/dL (70-110)
[2017-12-06] VITALS (21 sets, daily range): BP systolic 112–122; BP diastolic 50–62; PULSE 53–66; RESP 12–21; TEMP 36.2–37; O2SAT 93–98
--- NOTE | 2017-12-06 00:48 | CPS ---
Open area on side of nose. Duoderm applied and mask loosened for comfort. RN notified.
[2017-12-06] MEDS: Ipratropium/Albuterol Sulfate 3 ML AMPUL.NEB INHALATION ×4 (01:10→19:29)
[2017-12-06] MEDS: Sulfacetamide Sodium 15ML OPTH.BTL 2 DRP OP ×8 (01:21→20:48)
[2017-12-06] MEDS: cloNIDine HCl 0.1 MG Tablet PO ×3 (06:27→20:43)
[2017-12-06 07:06] LABS: Bedside Glucose 101 mg/dL (70-110)
--- NOTE | 2017-12-06 07:06 | PCM.PROGNOTE ---
Patient Problems: Active and Suspected Problems (Last Updated 11/27/17 @ 08:28 by Fahad Sesay MD) Paroxysmal A-fib (Acute) JORGE (acute kidney injury) (Acute) Subjective: The patient was seen and examined at the bedside this morning. Events from the last 24 hours have been reviewed. The patient is currently afebrile and hemodynamically stable. She has been compliant with use of nocturnal BiPAP therapy. The patient underwent a 3.5 hour hemodialysis session yesterday with 2.2 L of fluid removed. The patient is currently overall net +2.5 L for the admission. The patient is currently resting comfortably in bed with her at the bedside. She reports that she rested well overnight and feels quite well this morning. She is anxious to be discharged home. Objective: The patient's most recent lab work, culture data and imaging studies have all been personally reviewed. Urine culture dated November 27 was positive for Klebsiella pneumonia. Surface echocardiogram revealed evidence of stage II diastolic dysfunction with an ejection fraction of 65%. Right ventricular systolic pressure was estimated to be 51 mmHg. - Physical Exam General: Alert, Cooperative, No apparent distress HEENT: Atraumatic, PERRLA, Normocephalic Oral: Moist Mucosa, No Gingival or Mucosal Lesions/ Ulcerations Neck: Supple, No Nodes, Trachea Midline, - - Temporary hemodialysis catheter in place Lungs: No rhonchi, No wheeze, No rales, Diminished Cardiovascular: Normal S1, Normal S2, No murmurs, Bradycardic, No rub noted, No Gallop Abdomen: Bowel Sounds Present, Soft, Non Tender Extremities: No clubbing, No cyanosis, Edema Skin: No rashes, No breakdown Musculoskeletal: No Muscle Wasting Lymphatic: No Cervical, Supraclavicular, or Inguinal Adenopathy Neurological: Neuro grossly intact Psych/Mental Status: Normal Affect, Appropriate Vital Signs Temp Pulse Resp BP Pulse Ox 97.2 F L 53 L 14 118/50 L 97 12/06/17 03:30 12/06/17 06:29 12/06/17 04:55 12/06/17 06:29 12/06/17 04:55 Oxygen Flow Rate 5 Oxygen Delivery Method Nasal Cannula Weight: 212 lb 8.41 oz Body Mass Index (BMI) 35.7 Intake and Output for Last 24 Hours 12/04/17 12/05/17 12/06/17 23:59 23:59 23:59 Intake Total 310 / 310 885 / 885 Output Total 2200 / 2200 2200 / 2200 Balance -1890 / -1890 -1315 / -1315 POC Glucose 12/05/17 12/05/17 12/05/17 21:35 18:24 11:42 POC Glucose 164 H 145 H 303 H 12/05/17 06:39 POC Glucose 156 H Labs (Last 48 Hours) 12/04/17 12/04/17 12/04/17 11:17 16:33 22:00 WBC RBC Hgb Hct MCV MCH MCHC RDW RDW Differential Plt Count MPV Immature Gran % (Auto) Neut % (Auto) Lymph % (Auto) [place] % (Auto) Eos % (Auto) Baso % (Auto) Absolute Neuts (auto) Absolute Lymphs (auto) Total Counted Sodium Potassium Chloride Carbon Dioxide Anion Gap BUN Creatinine Estim Creat Clear Calc Est GFR (MDRD) Af Amer Est GFR (MDRD) Non-Af BUN/Creatinine Ratio Glucose Calcium POC Glucose 220 H 198 H 264 H 12/05/17 12/05/17 12/05/17 05:05 05:05 06:39 WBC 7.4 RBC 3.10 L Hgb 8.9 L Hct 29.8 L MCV 96.1 MCH 28.7 MCHC 29.9 L RDW 15.9 H RDW Differential 55.2 H Plt Count 186 MPV 9.6 Immature Gran % (Auto) 0.500 Neut % (Auto) 77.6 H Lymph % (Auto) 12.2 L [place] % (Auto) 8.0 Eos % (Auto) 1.4 Baso % (Auto) 0.3 Absolute Neuts (auto) 5.7 Absolute Lymphs (auto) 0.90 Total Counted Not Reportable Sodium 138 Potassium 4.6 Chloride 98 Carbon Dioxide 31.0 Anion Gap 9 BUN 57 H Creatinine 4.20 H Estim Creat Clear Calc 11.22 Est GFR (MDRD) Af Amer 14 L Est GFR (MDRD) Non-Af 11 L BUN/Creatinine Ratio 13.6 Glucose 165 H Calcium 7.9 L POC Glucose 156 H 12/05/17 12/05/17 12/05/17 11:42 18:24 21:35 WBC RBC Hgb Hct MCV MCH MCHC RDW RDW Differential Plt Count MPV Immature Gran % (Auto) Neut % (Auto) Lymph % (Auto) [place] % (Auto) Eos % (Auto) Baso % (Auto) Absolute Neuts (auto) Absolute Lymphs (auto) Total Counted Sodium Potassium Chloride Carbon Dioxide Anion Gap BUN Creatinine Estim Creat Clear Calc Est GFR (MDRD) Af Amer Est GFR (MDRD) Non-Af BUN/Creatinine Ratio Glucose Calcium POC Glucose 303 H 145 H 164 H 12/06/17 06:53 WBC RBC Hgb Hct MCV MCH MCHC RDW RDW Differential Plt Count MPV Immature Gran % (Auto) Neut % (Auto) Lymph % (Auto) [place] % (Auto) Eos % (Auto) Baso % (Auto) Absolute Neuts (auto) Absolute Lymphs (auto) Total Counted Sodium Potassium Chloride Carbon Dioxide Anion Gap BUN Creatinine Estim Creat Clear Calc Est GFR (MDRD) Af Amer Est GFR (MDRD) Non-Af BUN/Creatinine Ratio Glucose Calcium POC Glucose 101 Clinical Impression(s) from Imaging Studies Chest X-Ray 11/27/17 06:08 IMPRESSION: No other recurrent airspace disease in the left mid and lower lung parenchyma likely pneumonia, component of mild to moderate left pleural effusion. Although the heart is mostly obscured, heart appears to be borderline in size possibly mildly enlarged. Electronically Signed: Selina Pickard MD at 6:52 EST , Service support , Chest Ultrasound 11/27/17 09:00 IMPRESSION: No pleural effusion is seen. Electronically Signed: Brett Arcos MD at 15:18 EST Tel [phone], Service support , Chest X-Ray 11/28/17 05:55 IMPRESSION: Persistent consolidation in the left lower lobe although there is slight improvement in the aeration of the left lower lobe. Blunting of the right costophrenic angle with mild increased markings at the right lung base. Electronically Signed: Brett Arcos MD at 9:06 EST Tel [phone], Service support , Chest CT 11/28/17 12:40 IMPRESSION: Moderate increase in the posterior and basilar left pleural effusion which now extends into the oblique fissure with major compressive atelectasis of the left lower lobe now including the superior segment. Moderate compressive atelectasis of the lingula and mild compressive atelectasis of the left upper lobe. Small, primarily subpulmonic effusion of the right chest with increased/mild compressive atelectasis of the right lower lobe. Other stable chronic findings. Continued moderate pericardial effusion and cardiomegaly. Electronically Signed: Florencia Warren MD at 15:58 EST , Service support , Abdomen/Pelvis CT 11/30/17 07:42 IMPRESSION: No evidence for small bowel obstruction. No evidence for obstructive uropathy. No evidence for acute appendicitis. Midline umbilical hernia containing fat Uncomplicated colonic diverticulosis Small bowel pleural effusions with bibasilar compressive atelectasis. Cardiomegaly with small pericardial effusion Splenomegaly T12 and L2 vertebral body compression fractures of indeterminate age. Electronically Signed: Javad Jalloh, at 9:17 EST Tel , Service support , Chest X-Ray 12/03/17 06:57 IMPRESSION: Stable pleural parenchymal changes at the left lung base with mild degree of CHF. Questionable early left upper lobe infiltrate. Blunting of left costophrenic angle. Electronically Signed: Brett Arcos MD at 10:25 EST Tel [phone], Service support , Chest X-Ray 12/03/17 11:28 IMPRESSION: The tip of the right internal jugular venous catheter is at the junction of the superior vena cava and right atrium. Electronically Signed: Brett Arcos MD at 12:44 EST Tel [phone], Service support , Assessment/Plan Active and Suspected Problems (Last Updated 11/27/17 @ 08:28 by Fahad Sesay MD) Paroxysmal A-fib (Acute) JORGE (acute kidney injury) (Acute) RECOMMENDATIONS: 1. Ongoing hemodialysis per nephrology recommendations. 2. Continue aerosol treatments 3. Continue treatment of underlying cystitis 4. Wean supplemental oxygen to maintain saturations at or above 90%. 5. Encourage incentive spirometer use and mobilize patient as tolerated 6. Continue empiric BiPAP utilization on a nightly basis IMPRESSIONS: 1. Acute on chronic respiratory failure/end-stage COPD/pulmonary hypertension secondary to underlying scleroderma Agree with continued hemodialysis per nephrology recommendations. The patient has improved symptomatically. Her respiratory status is better and her state of edema has improved. It does appear from prior chest imaging, that the most likely etiology for her respiratory issues pertains to the development of pleural effusions with associated compressive atelectasis. Continue aerosol treatments as ordered. Encourage incentive spirometer use and mobilize patient as tolerated. The patient will need to be scheduled to follow-up in the pulmonary medicine clinic within 2 weeks of her discharge from the hospital. 2. JORGE on CKD Nephrology is following with ongoing hemodialysis per their recommendations. 3. Klebsiella cystitis Continue antibiotics as ordered. This note was generated with Capt[employer] dictation software. It may contain incorrect words, spelling, and punctuation that were not noted in checking the note before signing. Code Visit Inpatient E&M: 33263 Subs Hosp L2
--- NOTE | 2017-12-06 07:12 | PN_ITS ---
Patient Problems: Active and Suspected Problems (Last Updated 11/27/17 @ 08:28 by Fahad Sesay MD) Paroxysmal A-fib (Acute) JORGE (acute kidney injury) (Acute) Subjective: The patient was seen and examined at the bedside this morning. Events from the last 24 hours have been reviewed. The patient is currently afebrile and hemodynamically stable. She has been compliant with use of nocturnal BiPAP therapy. The patient underwent a 3.5 hour hemodialysis session yesterday with 2.2 L of fluid removed. The patient is currently overall net +2.5 L for the admission. The patient is currently resting comfortably in bed with her at the bedside. She reports that she rested well overnight and feels quite well this morning. She is anxious to be discharged home. Objective: The patient's most recent lab work, culture data and imaging studies have all been personally reviewed. Urine culture dated November 27 was positive for Klebsiella pneumonia. Surface echocardiogram revealed evidence of stage II diastolic dysfunction with an ejection fraction of 65%. Right ventricular systolic pressure was estimated to be 51 mmHg. - Physical Exam General: Alert, Cooperative, No apparent distress HEENT: Atraumatic, PERRLA, Normocephalic Oral: Moist Mucosa, No Gingival or Mucosal Lesions/ Ulcerations Neck: Supple, No Nodes, Trachea Midline, - - Temporary hemodialysis catheter in place Lungs: No rhonchi, No wheeze, No rales, Diminished Cardiovascular: Normal S1, Normal S2, No murmurs, Bradycardic, No rub noted, No Gallop Abdomen: Bowel Sounds Present, Soft, Non Tender Extremities: No clubbing, No cyanosis, Edema Skin: No rashes, No breakdown Musculoskeletal: No Muscle Wasting Lymphatic: No Cervical, Supraclavicular, or Inguinal Adenopathy Neurological: Neuro grossly intact Psych/Mental Status: Normal Affect, Appropriate Vital Signs Temp Pulse Resp BP Pulse Ox 97.2 F L 53 L 14 118/50 L 97 12/06/17 03:30 12/06/17 06:29 12/06/17 04:55 12/06/17 06:29 12/06/17 04:55 Oxygen Flow Rate 5 Oxygen Delivery Method Nasal Cannula Weight: 212 lb 8.41 oz Body Mass Index (BMI) 35.7 Intake and Output for Last 24 Hours 12/04/17 12/05/17 12/06/17 23:59 23:59 23:59 Intake Total 310 / 310 885 / 885 Output Total 2200 / 2200 2200 / 2200 Balance -1890 / -1890 -1315 / -1315 POC Glucose 12/05/17 12/05/17 12/05/17 21:35 18:24 11:42 POC Glucose 164 H 145 H 303 H 12/05/17 06:39 POC Glucose 156 H Labs (Last 48 Hours) 12/04/17 12/04/17 12/04/17 11:17 16:33 22:00 WBC RBC Hgb Hct MCV MCH MCHC RDW RDW Differential Plt Count MPV Immature Gran % (Auto) Neut % (Auto) Lymph % (Auto) [place] % (Auto) Eos % (Auto) Baso % (Auto) Absolute Neuts (auto) Absolute Lymphs (auto) Total Counted Sodium Potassium Chloride Carbon Dioxide Anion Gap BUN Creatinine Estim Creat Clear Calc Est GFR (MDRD) Af Amer Est GFR (MDRD) Non-Af BUN/Creatinine Ratio Glucose Calcium POC Glucose 220 H 198 H 264 H 12/05/17 12/05/17 12/05/17 05:05 05:05 06:39 WBC 7.4 RBC 3.10 L Hgb 8.9 L Hct 29.8 L MCV 96.1 MCH 28.7 MCHC 29.9 L RDW 15.9 H RDW Differential 55.2 H Plt Count 186 MPV 9.6 Immature Gran % (Auto) 0.500 Neut % (Auto) 77.6 H Lymph % (Auto) 12.2 L Montgomery % (Auto) 8.0 Eos % (Auto) 1.4 Baso % (Auto) 0.3 Absolute Neuts (auto) 5.7 Absolute Lymphs (auto) 0.90 Total Counted Not Reportable Sodium 138 Potassium 4.6 Chloride 98 Carbon Dioxide 31.0 Anion Gap 9 BUN 57 H Creatinine 4.20 H Estim Creat Clear Calc 11.22 Est GFR (MDRD) Af Amer 14 L Est GFR (MDRD) Non-Af 11 L BUN/Creatinine Ratio 13.6 Glucose 165 H Calcium 7.9 L POC Glucose 156 H 12/05/17 12/05/17 12/05/17 11:42 18:24 21:35 WBC RBC Hgb Hct MCV MCH MCHC RDW RDW Differential Plt Count MPV Immature Gran % (Auto) Neut % (Auto) Lymph % (Auto) Montgomery % (Auto) Eos % (Auto) Baso % (Auto) Absolute Neuts (auto) Absolute Lymphs (auto) Total Counted Sodium Potassium Chloride Carbon Dioxide Anion Gap BUN Creatinine Estim Creat Clear Calc Est GFR (MDRD) Af Amer Est GFR (MDRD) Non-Af BUN/Creatinine Ratio Glucose Calcium POC Glucose 303 H 145 H 164 H 12/06/17 06:53 WBC RBC Hgb Hct MCV MCH MCHC RDW RDW Differential Plt Count MPV Immature Gran % (Auto) Neut % (Auto) Lymph % (Auto) Montgomery % (Auto) Eos % (Auto) Baso % (Auto) Absolute Neuts (auto) Absolute Lymphs (auto) Total Counted Sodium Potassium Chloride Carbon Dioxide Anion Gap BUN Creatinine Estim Creat Clear Calc Est GFR (MDRD) Af Amer Est GFR (MDRD) Non-Af BUN/Creatinine Ratio Glucose Calcium POC Glucose 101 Clinical Impression(s) from Imaging Studies Chest X-Ray 11/27/17 06:08 IMPRESSION: No other recurrent airspace disease in the left mid and lower lung parenchyma likely pneumonia, component of mild to moderate left pleural effusion. Although the heart is mostly obscured, heart appears to be borderline in size possibly mildly enlarged. Electronically Signed: Selina Pickard MD at 6:52 EST , Service support , Chest Ultrasound 11/27/17 09:00 IMPRESSION: No pleural effusion is seen. Electronically Signed: Brett Arcos MD at 15:18 EST Tel [phone], Service support , Chest X-Ray 11/28/17 05:55 IMPRESSION: Persistent consolidation in the left lower lobe although there is slight improvement in the aeration of the left lower lobe. Blunting of the right costophrenic angle with mild increased markings at the right lung base. Electronically Signed: Brett Arcos MD at 9:06 EST Tel [phone], Service support , Chest CT 11/28/17 12:40 IMPRESSION: Moderate increase in the posterior and basilar left pleural effusion which now extends into the oblique fissure with major compressive atelectasis of the left lower lobe now including the superior segment. Moderate compressive atelectasis of the lingula and mild compressive atelectasis of the left upper lobe. Small, primarily subpulmonic effusion of the right chest with increased/mild compressive atelectasis of the right lower lobe. Other stable chronic findings. Continued moderate pericardial effusion and cardiomegaly. Electronically Signed: Florencia Warren MD at 15:58 EST , Service support , Abdomen/Pelvis CT 11/30/17 07:42 IMPRESSION: No evidence for small bowel obstruction. No evidence for obstructive uropathy. No evidence for acute appendicitis. Midline umbilical hernia containing fat Uncomplicated colonic diverticulosis Small bowel pleural effusions with bibasilar compressive atelectasis. Cardiomegaly with small pericardial effusion Splenomegaly T12 and L2 vertebral body compression fractures of indeterminate age. Electronically Signed: Javad Jalloh, at 9:17 EST Tel , Service support , Chest X-Ray 12/03/17 06:57 IMPRESSION: Stable pleural parenchymal changes at the left lung base with mild degree of CHF. Questionable early left upper lobe infiltrate. Blunting of left costophrenic angle. Electronically Signed: Brett Arcos MD at 10:25 EST Tel [phone], Service support , Chest X-Ray 12/03/17 11:28 IMPRESSION: The tip of the right internal jugular venous catheter is at the junction of the superior vena cava and right atrium. Electronically Signed: Brett Arcos MD at 12:44 EST Tel [phone], Service support , Assessment/Plan Active and Suspected Problems (Last Updated 11/27/17 @ 08:28 by Fahad Sesay MD) Paroxysmal A-fib (Acute) JORGE (acute kidney injury) (Acute) RECOMMENDATIONS: 1. Ongoing hemodialysis per nephrology recommendations. 2. Continue aerosol treatments 3. Continue treatment of underlying cystitis 4. Wean supplemental oxygen to maintain saturations at or above 90%. 5. Encourage incentive spirometer use and mobilize patient as tolerated 6. Continue empiric BiPAP utilization on a nightly basis IMPRESSIONS: 1. Acute on chronic respiratory failure/end-stage COPD/pulmonary hypertension secondary to underlying scleroderma Agree with continued hemodialysis per nephrology recommendations. The patient has improved symptomatically. Her respiratory status is better and her state of edema has improved. It does appear from prior chest imaging, that the most likely etiology for her respiratory issues pertains to the development of pleural effusions with associated compressive atelectasis. Continue aerosol treatments as ordered. Encourage incentive spirometer use and mobilize patient as tolerated. The patient will need to be scheduled to follow-up in the pulmonary medicine clinic within 2 weeks of her discharge from the hospital. 2. JORGE on CKD Nephrology is following with ongoing hemodialysis per their recommendations. 3. Klebsiella cystitis Continue antibiotics as ordered. This note was generated with [employer] dictation software. It may contain incorrect words, spelling, and punctuation that were not noted in checking the note before signing. Code Visit Inpatient E&M: 89129 Subs Hosp L2
[2017-12-06 08:31] LABS: Hepatitis B Core Ab Total Negative (Negative)
[2017-12-06] MEDS: Metoprolol Tartrate 25 MG Tablet PO ×2 (09:58→20:47)
[2017-12-06] MEDS: Pantoprazole Sodium 40 MG Tablet PO (09:58)
[2017-12-06] MEDS: Iron Polysaccharide Complex 150 MG CAPSULE PO (09:59)
[2017-12-06] MEDS: Amiodarone 200 MG Tablet PO (09:59)
[2017-12-06] MEDS: Heparin Injection 5,000 UNITS/ML Syringe 5000 UNITS SC ×2 (09:59→20:43)
--- NOTE | 2017-12-06 10:00 | PCM.PN.HOSP ---
Patient Problems: Active and Suspected Problems (Last Updated 11/27/17 @ 08:28 by Fahad Sesay MD) Paroxysmal A-fib (Acute) JORGE (acute kidney injury) (Acute) Subjective: Patient seen clinical condition continues to improve did discuss with nephrology regarding patient needing a tunneled catheter (is scheduled to be placed on 12/08/2017. Objective: GENERAL: Appears ill looking HEENT: Clear conjunctiva, NECK; supple, normal thyroid, CHEST: Diminished to auscultation bilaterally, . HEART: Regular S1 S2, no audible murmurs ABDOMEN: soft, non-tender, normoactive bowel sounds, RECTAL: deferred EXTREMITIES: No clubbing, no cyanosis. COOLING ROOM ATTENDANT: Awake, no lateralizing signs. SKIN: No rash Vitals/I&O's: Vital Signs Temp Pulse Resp BP Pulse Ox 98.6 F 66 16 120/59 L 94 12/06/17 09:30 12/06/17 09:58 12/06/17 09:30 12/06/17 09:58 12/06/17 09:30 Oxygen Flow Rate 4 Oxygen Delivery Method Nasal Cannula Weight: 96.4 kg Body Mass Index (BMI) 35.7 Intake and Output for Last 24 Hours 12/04/17 12/05/17 12/06/17 23:59 23:59 23:59 Intake Total 310 / 310 885 / 885 Output Total 2200 / 2200 2200 / 2200 Balance -1890 / -1890 -1315 / -1315 Laboratory Results 12/03/17 15:35: Hep Bs Antigen Negative, Hep B Core Total Ab Negative, Hepatitis Be Antibody Negative 12/05/17 11:42: POC Glucose 303 H 12/05/17 18:24: POC Glucose 145 H 12/05/17 21:35: POC Glucose 164 H 12/06/17 06:53: POC Glucose 101 Current Medications Acetaminophen (Tylenol) 650 mg PO Q4H PRN PRN PRN Reason: headache or fever Last Admin: 12/04/17 23:02 Dose: 650 mg Albuterol/Ipratropium (Duoneb) 3 ml INHALATION Q6H.RT RUBI Last Admin: 12/06/17 06:35 Dose: 3 ml Amiodarone HCl (Cordarone) 200 mg PO DAILY RUBI Last Admin: 12/06/17 09:59 Dose: 200 mg Atorvastatin Calcium (Lipitor) 40 mg PO QHS [facility] Last Admin: 12/05/17 21:40 Dose: 40 mg Bisacodyl (Dulcolax) 5 mg PO DAILY PRN PRN PRN Reason: Constipation Clonidine (Catapres) 0.1 mg PO TID [facility] Last Admin: 12/06/17 06:27 Dose: 0.1 mg Dextrose (D50w Syringe) 0 gm IV X1 PRN; Protocol PRN Reason: Hypoglycemia Gabapentin (Neurontin) 300 mg PO QHS [facility] Last Admin: 12/05/17 21:41 Dose: 300 mg Glucagon () 1 mg IM .X1 PRN PRN Reason: Hypoglycemia Guaifenesin (Robitussin) 10 ml PO Q6H PRN PRN PRN Reason: COUGH/CONGESTION Heparin Sodium (Porcine) () 5,000 units SC BID [facility] Last Admin: 12/06/17 09:59 Dose: 5,000 units Insulin Aspart (Novolog Flexpen ([facility])) 0 units SC ACHS [facility] PRN Reason: Protocol Last Admin: 12/06/17 07:58 Dose: Not Given Insulin Detemir (Levemir (Bkc)) 39 units SC BID [facility] Last Admin: 12/06/17 09:58 Dose: 39 u Levofloxacin (Levaquin) 250 mg PO Q48H [facility] Last Admin: 12/05/17 06:35 Dose: 250 mg Metoprolol Tartrate (Lopressor (Beta Suzan)) 25 mg PO BID [facility] Last Admin: 12/06/17 09:58 Dose: 25 mg Ondansetron HCl (Zofran) 4 mg IV Q6H PRN PRN PRN Reason: NAUSEA Last Admin: 12/04/17 08:46 Dose: 4 mg Oxycodone HCl (Oxyir) 5 mg PO Q6H PRN PRN PRN Reason: SEVERE PAIN (6-10/10) Last Admin: 12/04/17 11:56 Dose: 5 mg Pantoprazole Sodium (Protonix) 40 mg PO DAILY [facility] Last Admin: 12/06/17 09:58 Dose: 40 mg Polysaccharide Iron Complex (Ferrex 150) [facility] Last Admin: 12/06/17 09:59 Dose: 150 mg Sodium Chloride () 5 - 30 ml IV UD PRN PRN Reason: SALINE FLUSH Last Admin: 12/04/17 08:46 Dose: 10 ml Sulfacetamide Sodium (Sulf-10) 2 drop OP Q3H RUBI Stop: 12/12/17 13:01 Last Admin: 12/06/17 09:59 Dose: 2 drop Assessment/Plan Active and Suspected Problems (Last Updated 11/27/17 @ 08:28 by Fahad Sesay MD) Paroxysmal A-fib (Acute) JORGE (acute kidney injury) (Acute) Patient is a 72-year-old lady admitted with left-sided chest pain in addition to shortness of breath imaging studies on admission demonstrated left-sided pleural effusion as well as suspected pneumonia treated to a monitored bed where patient has since been managed 1. Suspected community-acquired pneumonia involving the left lower lobe. Patient was managed with antibiotics per protocol using Levaquin Zosyn and vancomycin (the latter two subsequently discontinued). Patient was also placed on supplemental oxygen titrated to keep oxygen saturation greater than 90 2. Acute kidney injury superimposed on patient's CKD stage III patient was on Lasix held with consultation placed to nephrology patient kidney function appears to be worsening Lasix still on hold case was discussed with nephrology he recommended starting patient on IV fluids. If patient azotemia continues to worsen patient may need temporary dialysis. Patient had temporary dialysis catheter placement on 12/03/2017 with initiation of dialysis. For patient to undergo tunneled catheter placement on 12/08/2017 3. Moderate left-sided pleural effusion managed symptomatically diagnostic and therapeutic paracentesis not performed due to inadequate fluid 2. Acute on chronic hypoxic respiratory failure secondary to #1 and 3 5. Anemia secondary to anemia of chronic disorder patient transfused with 1 unit PRBC after patient was deemed to be symptomatic 6. Mild hyperkalemia without EKG changes. Treated per protocol 7. New onset A. fib with RVR: Seen in consultation by cardiology echo demonstrated preserved ejection fraction of 65% placed on amiodarone back to sinus rhythm as of 12/01/17 8. Chronic kidney disease stage III baseline creatinine 1.42 9. Acute cystitis with Klebsiella management Levaquin based on sensitivities 10. Hypertension-blood pressure controlled, home medications continued with dose adjustment as needed 11. Diabetes mellitus type 2 blood sugars have remained relatively stable did continue with patient long-acting insulin in addition to Accu-Cheks before meals and at bedtime with sliding scale coverage 12. Obstructive sleep apnea 13. Morbid obesity with BMI of 35.8 weight loss advised 14. History of previous CVA 15. History of cerebral bleed status post craniotomy 16. Crest variant scleroderma per history 17. DVT prophylaxis SC heparin Code Visit Inpatient E&M: 47110 Subs Hosp L2
--- NOTE | 2017-12-06 10:14 | PN_ITS ---
Patient Problems: Active and Suspected Problems (Last Updated 11/27/17 @ 08:28 by Fahad Sesay MD) Paroxysmal A-fib (Acute) JORGE (acute kidney injury) (Acute) Subjective: Patient seen clinical condition continues to improve did discuss with nephrology regarding patient needing a tunneled catheter (is scheduled to be placed on 12/08/2017. Objective: GENERAL: Appears ill looking HEENT: Clear conjunctiva, NECK; supple, normal thyroid, CHEST: Diminished to auscultation bilaterally, . HEART: Regular S1 S2, no audible murmurs ABDOMEN: soft, non-tender, normoactive bowel sounds, RECTAL: deferred EXTREMITIES: No clubbing, no cyanosis. TRAFFIC ENGINEER: Awake, no lateralizing signs. SKIN: No rash Vitals/I&O's: Vital Signs Temp Pulse Resp BP Pulse Ox 98.6 F 66 16 120/59 L 94 12/06/17 09:30 12/06/17 09:58 12/06/17 09:30 12/06/17 09:58 12/06/17 09:30 Oxygen Flow Rate 4 Oxygen Delivery Method Nasal Cannula Weight: 96.4 kg Body Mass Index (BMI) 35.7 Intake and Output for Last 24 Hours 12/04/17 12/05/17 12/06/17 23:59 23:59 23:59 Intake Total 310 / 310 885 / 885 Output Total 2200 / 2200 2200 / 2200 Balance -1890 / -1890 -1315 / -1315 Laboratory Results 12/03/17 15:35: Hep Bs Antigen Negative, Hep B Core Total Ab Negative, Hepatitis Be Antibody Negative 12/05/17 11:42: POC Glucose 303 H 12/05/17 18:24: POC Glucose 145 H 12/05/17 21:35: POC Glucose 164 H 12/06/17 06:53: POC Glucose 101 Current Medications Acetaminophen (Tylenol) 650 mg PO Q4H PRN PRN PRN Reason: headache or fever Last Admin: 12/04/17 23:02 Dose: 650 mg Albuterol/Ipratropium (Duoneb) 3 ml INHALATION Q6H.RT RUBI Last Admin: 12/06/17 06:35 Dose: 3 ml Amiodarone HCl (Cordarone) 200 mg PO DAILY RUBI Last Admin: 12/06/17 09:59 Dose: 200 mg Atorvastatin Calcium (Lipitor) 40 mg PO QHS [facility] Last Admin: 12/05/17 21:40 Dose: 40 mg Bisacodyl (Dulcolax) 5 mg PO DAILY PRN PRN PRN Reason: Constipation Clonidine (Catapres) 0.1 mg PO TID [facility] Last Admin: 12/06/17 06:27 Dose: 0.1 mg Dextrose (D50w Syringe) 0 gm IV X1 PRN; Protocol PRN Reason: Hypoglycemia Gabapentin (Neurontin) 300 mg PO QHS [facility] Last Admin: 12/05/17 21:41 Dose: 300 mg Glucagon () 1 mg IM .X1 PRN PRN Reason: Hypoglycemia Guaifenesin (Robitussin) 10 ml PO Q6H PRN PRN PRN Reason: COUGH/CONGESTION Heparin Sodium (Porcine) () 5,000 units SC BID [facility] Last Admin: 12/06/17 09:59 Dose: 5,000 units Insulin Aspart (Novolog Flexpen ([facility])) 0 units SC ACHS [facility] PRN Reason: Protocol Last Admin: 12/06/17 07:58 Dose: Not Given Insulin Detemir (Levemir (Bkc)) 39 units SC BID [facility] Last Admin: 12/06/17 09:58 Dose: 39 u Levofloxacin (Levaquin) 250 mg PO Q48H [facility] Last Admin: 12/05/17 06:35 Dose: 250 mg Metoprolol Tartrate (Lopressor (Beta Suzan)) 25 mg PO BID [facility] Last Admin: 12/06/17 09:58 Dose: 25 mg Ondansetron HCl (Zofran) 4 mg IV Q6H PRN PRN PRN Reason: NAUSEA Last Admin: 12/04/17 08:46 Dose: 4 mg Oxycodone HCl (Oxyir) 5 mg PO Q6H PRN PRN PRN Reason: SEVERE PAIN (6-10/10) Last Admin: 12/04/17 11:56 Dose: 5 mg Pantoprazole Sodium (Protonix) 40 mg PO DAILY [facility] Last Admin: 12/06/17 09:58 Dose: 40 mg Polysaccharide Iron Complex (Ferrex 150) [facility] Last Admin: 12/06/17 09:59 Dose: 150 mg Sodium Chloride () 5 - 30 ml IV UD PRN PRN Reason: SALINE FLUSH Last Admin: 12/04/17 08:46 Dose: 10 ml Sulfacetamide Sodium (Sulf-10) 2 drop OP Q3H RUBI Stop: 12/12/17 13:01 Last Admin: 12/06/17 09:59 Dose: 2 drop Assessment/Plan Active and Suspected Problems (Last Updated 11/27/17 @ 08:28 by Fahad Sesay MD) Paroxysmal A-fib (Acute) JORGE (acute kidney injury) (Acute) Patient is a 72-year-old lady admitted with left-sided chest pain in addition to shortness of breath imaging studies on admission demonstrated left-sided pleural effusion as well as suspected pneumonia treated to a monitored bed where patient has since been managed 1. Suspected community-acquired pneumonia involving the left lower lobe. Patient was managed with antibiotics per protocol using Levaquin Zosyn and vancomycin (the latter two subsequently discontinued). Patient was also placed on supplemental oxygen titrated to keep oxygen saturation greater than 90 2. Acute kidney injury superimposed on patient's CKD stage III patient was on Lasix held with consultation placed to nephrology patient kidney function appears to be worsening Lasix still on hold case was discussed with nephrology he recommended starting patient on IV fluids. If patient azotemia continues to worsen patient may need temporary dialysis. Patient had temporary dialysis catheter placement on 12/03/2017 with initiation of dialysis. For patient to undergo tunneled catheter placement on 12/08/2017 3. Moderate left-sided pleural effusion managed symptomatically diagnostic and therapeutic paracentesis not performed due to inadequate fluid 2. Acute on chronic hypoxic respiratory failure secondary to #1 and 3 5. Anemia secondary to anemia of chronic disorder patient transfused with 1 unit PRBC after patient was deemed to be symptomatic 6. Mild hyperkalemia without EKG changes. Treated per protocol 7. New onset A. fib with RVR: Seen in consultation by cardiology echo demonstrated preserved ejection fraction of 65% placed on amiodarone back to sinus rhythm as of 12/01/17 8. Chronic kidney disease stage III baseline creatinine 1.42 9. Acute cystitis with Klebsiella management Levaquin based on sensitivities 10. Hypertension-blood pressure controlled, home medications continued with dose adjustment as needed 11. Diabetes mellitus type 2 blood sugars have remained relatively stable did continue with patient long-acting insulin in addition to Accu-Cheks before meals and at bedtime with sliding scale coverage 12. Obstructive sleep apnea 13. Morbid obesity with BMI of 35.8 weight loss advised 14. History of previous CVA 15. History of cerebral bleed status post craniotomy 16. Crest variant scleroderma per history 17. DVT prophylaxis SC heparin Code Visit Inpatient E&M: 45276 Subs Hosp L2
[2017-12-06 11:18] LABS: Hematocrit 29.2 % (37-47); Mean Corp Hgb Conc 30.8 g/gl (32-36); Mean Corpuscular Hgb 28.7 pg (27.0-32.0); Mean Platelet Vol. 8.9 fl (6.2-12.0); Platelet Count 157 K/mm3 (150-450); RBC Distribution Width CV 15.9 % (11.6-14.6); RBC Distribution Width SD 53.1 fl (35.1-43.9); Red Blood Count 3.14 M/mm3 (4.2-5.4); White Blood Count 6.4 K/mm3 (4.4-11.0)
[2017-12-06 11:19] LABS: Scan Indicated on CBC? Y/N NO
[2017-12-06 11:40] LABS: Anion Gap 9 (5-15); BUN 39 mg/dL (7-18); BUN/Creat Ratio 11.4 RATIO (10-20); Calcium,Total 8.2 mg/dL (8.5-10.1); Chloride 94 mmol/L (98-107); Creatinine, Serum 3.42 mg/dL (0.55-1.02); EST Glomerular Filtration Rate 14 mL/min (>60); Est Glom Filt Rate - Afr Amer 17 mL/min (>60); Estimated Creatinine Clearance 13.77 ml/min; Glucose 196 mg/dL (74-106); Magnesium 2.1 mg/dL (1.6-2.6); Potassium 4.3 mmol/L (3.5-5.1); Sodium Level 134 mmol/L (136-145)
[2017-12-06 11:41] LABS: Bedside Glucose 240 mg/dL (70-110)
[2017-12-06] MEDS: oxyCODONE 5 MG Tablet PO (12:48)
[2017-12-06 17:00] LABS: Bedside Glucose 231 mg/dL (70-110)
[2017-12-06] MEDS: Atorvastatin Calcium 40 MG Tablet PO (20:46)
[2017-12-06] MEDS: Gabapentin 300 MG Capsule PO (20:48)
[2017-12-06 21:41] LABS: Bedside Glucose 175 mg/dL (70-110)
[2017-12-07] VITALS (21 sets, daily range): BP systolic 119–135; BP diastolic 47–65; PULSE 50–66; RESP 12–25; TEMP 36.5–37; O2SAT 96–99
[2017-12-07] MEDS: Sulfacetamide Sodium 15ML OPTH.BTL 2 DRP OP ×8 (01:06→21:04)
[2017-12-07] MEDS: levoFLOXacin 250 MG Tablet PO (06:45)
[2017-12-07] MEDS: cloNIDine HCl 0.1 MG Tablet PO ×3 (06:45→21:04)
--- NOTE | 2017-12-07 06:57 | PN_ITS ---
Patient Problems: Active and Suspected Problems (Last Updated 11/27/17 @ 08:28 by Fahad Sesay MD) Paroxysmal A-fib (Acute) JORGE (acute kidney injury) (Acute) Subjective: The patient was seen and examined at the bedside this morning. Events from the last 24 hours have been reviewed. The patient is currently afebrile, hemodynamically stable and maintaining appropriate oxygen saturations on 3 L/ min via nasal cannula. She continues to tolerate nocturnal BiPAP therapy. There appears to be tentative plans for tunneled dialysis line placement tomorrow. Objective: The patient's most recent lab work, culture data and imaging studies have all been personally reviewed. Urine culture dated November 27 was positive for Klebsiella pneumonia. Surface echocardiogram revealed evidence of stage II diastolic dysfunction with an ejection fraction of 65%. Right ventricular systolic pressure was estimated to be 51 mmHg. - Physical Exam General: Alert, Oriented x3, Cooperative, No apparent distress HEENT: Atraumatic, PERRLA, Normocephalic Oral: Moist Mucosa, No Gingival or Mucosal Lesions/ Ulcerations Neck: Supple, No Nodes, Trachea Midline, - - Temporary HD line remains in place Lungs: No rhonchi, No wheeze, No rales, Diminished Cardiovascular: Normal S1, Normal S2, No murmurs, Bradycardic Abdomen: Bowel Sounds Present, Soft, Non Tender, Obese Extremities: No clubbing, No cyanosis, Edema Skin: No rashes, No breakdown Musculoskeletal: No Muscle Wasting Lymphatic: No Cervical, Supraclavicular, or Inguinal Adenopathy Neurological: Neuro grossly intact Psych/Mental Status: Normal Affect, Appropriate Vital Signs Temp Pulse Resp BP Pulse Ox 97.8 F 57 L 18 130/58 H 96 12/07/17 02:53 12/07/17 06:49 12/07/17 02:53 12/07/17 06:49 12/07/17 04:21 Oxygen Flow Rate 3.5 Oxygen Delivery Method Nasal Cannula Weight: 212 lb 8.41 oz Body Mass Index (BMI) 35.7 Intake and Output for Last 24 Hours 12/05/17 12/06/17 12/07/17 23:59 23:59 23:59 Intake Total 885 / 885 480 / 480 Output Total 2200 / 2200 Balance -1315 / -1315 480 / 480 Laboratory Tests Past 24 Hrs 12/03/17 12/06/17 12/06/17 15:35 11:00 11:00 WBC 6.4 RBC 3.14 L Hgb 9.0 L Hct 29.2 L MCV 93.0 MCH 28.7 MCHC 30.8 L RDW 15.9 H RDW Differential 53.1 H Plt Count 157 MPV 8.9 Sodium 134 L Potassium 4.3 Chloride 94 L Carbon Dioxide 31.0 Anion Gap 9 BUN 39 H Creatinine 3.42 H Estim Creat Clear Calc 13.77 Est GFR (MDRD) Af Amer 17 L Est GFR (MDRD) Non-Af 14 L BUN/Creatinine Ratio 11.4 Glucose 196 H Calcium 8.2 L Magnesium 2.1 Hep Bs Antigen Negative Hep B Core Total Ab Negative Hepatitis Be Antibody Negative 12/07/17 12/07/17 05:14 05:14 WBC Pending RBC Pending Hgb Pending Hct Pending MCV Pending MCH Pending MCHC Pending RDW Pending RDW Differential Pending Plt Count Pending MPV Sodium Pending Potassium Pending Chloride Pending Carbon Dioxide Pending Anion Gap Pending BUN Pending Creatinine Pending Estim Creat Clear Calc Est GFR (MDRD) Af Amer Pending Est GFR (MDRD) Non-Af Pending BUN/Creatinine Ratio Pending Glucose Pending Calcium Pending Magnesium Pending Hep Bs Antigen Hep B Core Total Ab Hepatitis Be Antibody POC Glucose 12/06/17 12/06/17 12/06/17 20:45 16:48 11:31 POC Glucose 175 H 231 H 240 H 12/06/17 06:53 POC Glucose 101 Clinical Impression(s) from Imaging Studies Chest X-Ray 11/27/17 06:08 IMPRESSION: No other recurrent airspace disease in the left mid and lower lung parenchyma likely pneumonia, component of mild to moderate left pleural effusion. Although the heart is mostly obscured, heart appears to be borderline in size possibly mildly enlarged. Electronically Signed: Selina Pickard MD at 6:52 EST , Service support , Chest Ultrasound 11/27/17 09:00 IMPRESSION: No pleural effusion is seen. Electronically Signed: Brett Arcos MD at 15:18 EST Tel [phone], Service support , Chest X-Ray 11/28/17 05:55 IMPRESSION: Persistent consolidation in the left lower lobe although there is slight improvement in the aeration of the left lower lobe. Blunting of the right costophrenic angle with mild increased markings at the right lung base. Electronically Signed: Brett Arcos MD at 9:06 EST Tel [phone], Service support , Chest CT 11/28/17 12:40 IMPRESSION: Moderate increase in the posterior and basilar left pleural effusion which now extends into the oblique fissure with major compressive atelectasis of the left lower lobe now including the superior segment. Moderate compressive atelectasis of the lingula and mild compressive atelectasis of the left upper lobe. Small, primarily subpulmonic effusion of the right chest with increased/mild compressive atelectasis of the right lower lobe. Other stable chronic findings. Continued moderate pericardial effusion and cardiomegaly. Electronically Signed: Florencia Warren MD at 15:58 EST , Service support , Abdomen/Pelvis CT 11/30/17 07:42 IMPRESSION: No evidence for small bowel obstruction. No evidence for obstructive uropathy. No evidence for acute appendicitis. Midline umbilical hernia containing fat Uncomplicated colonic diverticulosis Small bowel pleural effusions with bibasilar compressive atelectasis. Cardiomegaly with small pericardial effusion Splenomegaly T12 and L2 vertebral body compression fractures of indeterminate age. Electronically Signed: Javad Jalloh, at 9:17 EST Tel , Service support , Chest X-Ray 12/03/17 06:57 IMPRESSION: Stable pleural parenchymal changes at the left lung base with mild degree of CHF. Questionable early left upper lobe infiltrate. Blunting of left costophrenic angle. Electronically Signed: Brett Arcos MD at 10:25 EST Tel [phone], Service support , Chest X-Ray 12/03/17 11:28 IMPRESSION: The tip of the right internal jugular venous catheter is at the junction of the superior vena cava and right atrium. Electronically Signed: Brett Arcos MD at 12:44 EST Tel [phone], Service support , Assessment/Plan Active and Suspected Problems (Last Updated 11/27/17 @ 08:28 by Fahad Sesay MD) Paroxysmal A-fib (Acute) JORGE (acute kidney injury) (Acute) RECOMMENDATIONS: 1. Ongoing hemodialysis per nephrology recommendations. 2. Continue aerosol treatments 3. Continue treatment of underlying cystitis 4. Wean supplemental oxygen to maintain saturations at or above 90%. 5. Encourage incentive spirometer use and mobilize patient as tolerated 6. Continue empiric BiPAP utilization on a nightly basis 7. Please ensure that the patient has pulmonary follow-up within 2 weeks of her discharge from the hospital. IMPRESSIONS: 1. Acute on chronic respiratory failure/end-stage COPD/pulmonary hypertension secondary to underlying scleroderma Agree with continued hemodialysis per nephrology recommendations. The patient has improved symptomatically. Her respiratory status is better and her state of edema has improved. It does appear from prior chest imaging, that the most likely etiology for her respiratory issues pertains to the development of pleural effusions with associated compressive atelectasis. Continue aerosol treatments as ordered. Encourage incentive spirometer use and mobilize patient as tolerated. The patient will need to be scheduled to follow-up in the pulmonary medicine clinic within 2 weeks of her discharge from the hospital. 2. JORGE on CKD Nephrology is following with ongoing hemodialysis per their recommendations. Plans for tunnel dialysis catheter placement tomorrow. 3. Klebsiella cystitis Continue antibiotics as ordered. This note was generated with [employer] dictation software. It may contain incorrect words, spelling, and punctuation that were not noted in checking the note before signing. Code Visit Inpatient E&M: 38916 Subs Hosp L2
[2017-12-07 07:03] LABS: Hematocrit 29.2 % (37-47); Hemoglobin 9.1 g/dl (12.0-15.0); Mean Corp Hgb Conc 31.2 g/gl (32-36); Mean Corpuscular Hgb 29.5 pg (27.0-32.0); Mean Corpuscular Volume 94.8 fL (81-99); Mean Platelet Vol. 9.4 fl (6.2-12.0); Platelet Count 182 K/mm3 (150-450); RBC Distribution Width CV 15.3 % (11.6-14.6); Red Blood Count 3.08 M/mm3 (4.2-5.4); White Blood Count 5.9 K/mm3 (4.4-11.0)
[2017-12-07 07:05] LABS: Bedside Glucose 115 mg/dL (70-110)
[2017-12-07] MEDS: Ipratropium/Albuterol Sulfate 3 ML AMPUL.NEB INHALATION ×3 (07:15→19:12)
[2017-12-07 07:24] LABS: Scan Indicated on CBC? Y/N NO
--- NOTE | 2017-12-07 07:37 | PN_ITS ---
Patient Problems: Active and Suspected Problems (Last Updated 11/27/17 @ 08:28 by Fahad Sesay MD) Paroxysmal A-fib (Acute) JORGE (acute kidney injury) (Acute) Subjective: Patient's azotemia continues to improve along with her clinical condition Objective: GENERAL: Appears ill looking HEENT: Clear conjunctiva, NECK; supple, normal thyroid, CHEST: Diminished to auscultation bilaterally, . HEART: Regular S1 S2, no audible murmurs ABDOMEN: soft, non-tender, normoactive bowel sounds, RECTAL: deferred EXTREMITIES: No clubbing, no cyanosis. VISITOR SERVICES REPRESENTATIVE: Awake, no lateralizing signs. SKIN: No rash Vitals/I&O's: Vital Signs Temp Pulse Resp BP Pulse Ox 97.8 F 58 L 20 H 130/58 H 96 12/07/17 02:53 12/07/17 07:05 12/07/17 07:05 12/07/17 06:49 12/07/17 04:21 Oxygen Flow Rate 3.5 Oxygen Delivery Method Nasal Cannula Weight: 98.8 kg Body Mass Index (BMI) 35.7 Intake and Output for Last 24 Hours 12/05/17 12/06/17 12/07/17 23:59 23:59 23:59 Intake Total 885 / 885 480 / 480 Output Total 2200 / 2200 Balance -1315 / -1315 480 / 480 Laboratory Results 12/03/17 15:35: Hep Bs Antigen Negative, Hep B Core Total Ab Negative, Hepatitis Be Antibody Negative 12/06/17 11:00: Sodium 134 L, Potassium 4.3, Chloride 94 L, Carbon Dioxide 31.0 , Anion Gap 9, BUN 39 H, Creatinine 3.42 H, Estim Creat Clear Calc 13.77, Est GFR (MDRD) Af Amer 17 L, Est GFR (MDRD) Non-Af 14 L, BUN/Creatinine Ratio 11.4, Glucose 196 H, Calcium 8.2 L, Magnesium 2.1 12/06/17 11:00: WBC 6.4, RBC 3.14 L, Hgb 9.0 L, Hct 29.2 L, MCV 93.0, MCH 28.7, MCHC 30.8 L, RDW 15.9 H, RDW Differential 53.1 H, Plt Count 157, MPV 8.9 12/06/17 11:31: POC Glucose 240 H 12/06/17 16:48: POC Glucose 231 H 12/06/17 20:45: POC Glucose 175 H 12/07/17 05:14: WBC 5.9, RBC 3.08 L, Hgb 9.1 L, Hct 29.2 L, MCV 94.8, MCH 29.5, MCHC 31.2 L, RDW 15.3 H, RDW Differential 50.0 H, Plt Count 182, MPV 9.4 12/07/17 05:14: Sodium Pending, Potassium Pending, Chloride Pending, Carbon Dioxide Pending, Anion Gap Pending, BUN Pending, Creatinine Pending, Est GFR ( MDRD) Af Amer Pending, Est GFR (MDRD) Non-Af Pending, BUN/Creatinine Ratio Pending, Glucose Pending, Calcium Pending, Magnesium Pending 12/07/17 06:44: POC Glucose 115 H Current Medications Acetaminophen (Tylenol) 650 mg PO Q4H PRN PRN PRN Reason: headache or fever Last Admin: 12/04/17 23:02 Dose: 650 mg Albuterol/Ipratropium (Duoneb) 3 ml INHALATION Q6H.RT [facility] Last Admin: 12/07/17 07:15 Dose: 3 ml Amiodarone HCl (Cordarone) 200 mg PO DAILY [facility] Last Admin: 12/06/17 09:59 Dose: 200 mg Atorvastatin Calcium (Lipitor) 40 mg PO QHS [facility] Last Admin: 12/06/17 20:46 Dose: 40 mg Bisacodyl (Dulcolax) 5 mg PO DAILY PRN PRN PRN Reason: Constipation Clonidine (Catapres) 0.1 mg PO TID [facility] Last Admin: 12/07/17 06:45 Dose: 0.1 mg Dextrose (D50w Syringe) 0 gm IV X1 PRN; Protocol PRN Reason: Hypoglycemia Gabapentin (Neurontin) 300 mg PO QHS [facility] Last Admin: 12/06/17 20:48 Dose: 300 mg Glucagon () 1 mg IM .X1 PRN PRN Reason: Hypoglycemia Guaifenesin (Robitussin) 10 ml PO Q6H PRN PRN PRN Reason: COUGH/CONGESTION Heparin Sodium (Porcine) () 5,000 units SC BID [facility] Last Admin: 12/06/17 20:43 Dose: 5,000 units Insulin Aspart (Novolog Flexpen (Bk)) 0 units SC ACHS [facility]BI PRN Reason: Protocol Last Admin: 12/06/17 20:48 Dose: 1 u Insulin Detemir (Levemir (Bk)) 39 units SC BID [facility] Last Admin: 12/06/17 20:46 Dose: 39 u Levofloxacin (Levaquin) 250 mg PO Q48H [facility] Last Admin: 12/07/17 06:45 Dose: 250 mg Metoprolol Tartrate (Lopressor (Beta Suzan)) 25 mg PO BID [facility] Last Admin: 12/06/17 20:47 Dose: 25 mg Ondansetron HCl (Zofran) 4 mg IV Q6H PRN PRN PRN Reason: NAUSEA Last Admin: 12/04/17 08:46 Dose: 4 mg Oxycodone HCl (Oxyir) 5 mg PO Q6H PRN PRN PRN Reason: SEVERE PAIN (6-10/10) Last Admin: 12/06/17 12:48 Dose: 5 mg Pantoprazole Sodium (Protonix) 40 mg PO DAILY [facility] Last Admin: 12/06/17 09:58 Dose: 40 mg Polysaccharide [facility] 150[facility] Admin: 12/06/17 09:59 Dose: 150 mg Sodium Chloride () 5 - 30 ml IV UD PRN PRN Reason: SALINE FLUSH Last Admin: 12/04/17 08:46 Dose: 10 ml Sulfacetamide Sodium (Sulf-10) 2 drop OP Q3H [facility] Stop: 12/12/17 13:01 Last Admin: 12/07/17 06:46 Dose: 2 drop Assessment/Plan Active and Suspected Problems (Last Updated 11/27/17 @ 08:28 by Fahad Sesay MD) Paroxysmal A-fib (Acute) JORGE (acute kidney injury) (Acute) Patient is a 72-year-old lady admitted with left-sided chest pain in addition to shortness of breath imaging studies on admission demonstrated left-sided pleural effusion as well as suspected pneumonia treated to a monitored bed where patient has since been managed patient hospital stay complicated by development of acute kidney injury resulting in initiation of dialysis. Plan is for patient to undergo tunneled catheter placement on 12/08/2017 with plans for subsequent discharge home with home health and dialysis as outpatient if indicated 1. Suspected community-acquired pneumonia involving the left lower lobe. Patient was managed with antibiotics per protocol using Levaquin Zosyn and vancomycin (the latter two subsequently discontinued). Patient was also placed on supplemental oxygen titrated to keep oxygen saturation greater than 90 2. Acute kidney injury superimposed on patient's CKD stage III patient was on Lasix held with consultation placed to nephrology patient kidney function appears to be worsening Lasix still on hold case was discussed with nephrology he recommended starting patient on IV fluids. If patient azotemia continues to worsen patient may need temporary dialysis. Patient had temporary dialysis catheter placement on 12/03/2017 with initiation of dialysis. For patient to undergo tunneled catheter placement on 12/08/2017 3. Moderate left-sided pleural effusion managed symptomatically diagnostic and therapeutic paracentesis not performed due to inadequate fluid 2. Acute on chronic hypoxic respiratory failure secondary to #1 and 3 5. Anemia secondary to anemia of chronic disorder patient transfused with 1 unit PRBC after patient was deemed to be symptomatic 6. Mild hyperkalemia without EKG changes. Treated per protocol 7. New onset A. fib with RVR: Seen in consultation by cardiology echo demonstrated preserved ejection fraction of 65% placed on amiodarone back to sinus rhythm as of 12/01/17 8. Chronic kidney disease stage III baseline creatinine 1.42 9. Acute cystitis with Klebsiella management Levaquin based on sensitivities 10. Hypertension-blood pressure controlled, home medications continued with dose adjustment as needed 11. Diabetes mellitus type 2 blood sugars have remained relatively stable did continue with patient long-acting insulin in addition to Accu-Cheks before meals and at bedtime with sliding scale coverage 12. Obstructive sleep apnea 13. Morbid obesity with BMI of 35.8 weight loss advised 14. History of previous CVA 15. History of cerebral bleed status post craniotomy 16. Crest variant scleroderma per history 17. DVT prophylaxis SC heparin Code Visit Inpatient E&M: 10909 Subs Hosp L2
[2017-12-07 08:36] LABS: Anion Gap 11 (5-15); BUN 53 mg/dL (7-18); Calcium,Total 8.2 mg/dL (8.5-10.1); Chloride 96 mmol/L (98-107); Creatinine, Serum 3.79 mg/dL (0.55-1.02); EST Glomerular Filtration Rate 13 mL/min (>60); Est Glom Filt Rate - Afr Amer 15 mL/min (>60); Estimated Creatinine Clearance 12.43 ml/min; Glucose 103 mg/dL (74-106); Magnesium 2.2 mg/dL (1.6-2.6); Potassium 4.3 mmol/L (3.5-5.1); Sodium Level 135 mmol/L (136-145)
--- NOTE | 2017-12-07 10:04 | PCM.PN.REN ---
Patient Problems: Active and Suspected Problems (Last Updated 11/27/17 @ 08:28 by Fahad Sesay MD) Paroxysmal A-fib (Acute) JORGE (acute kidney injury) (Acute) Subjective: No SOB K better UO suboptimal solute plateau - Physical Exam HEENT: Atraumatic Lungs: Clear to auscultation Cardiovascular: Regular rate, No murmurs Abdomen: Bowel Sounds Present, Soft, Non Tender Extremities: No clubbing Vital Signs Temp Pulse Resp BP Pulse Ox 98 F 59 L 18 119/60 97 12/07/17 08:50 12/07/17 08:50 12/07/17 08:50 12/07/17 08:50 12/07/17 08:50 Oxygen Flow Rate 3.5 Oxygen Delivery Method Nasal Cannula Weight: 98.8 kg Body Mass Index (BMI) 35.7 Intake and Output for Last 24 Hours 12/05/17 12/06/17 12/07/17 23:59 23:59 23:59 Intake Total 885 / 885 480 / 480 Output Total 2200 / 2200 Balance -1315 / -1315 480 / 480 Laboratory Tests Past 24 Hrs 12/06/17 12/06/17 12/07/17 11:00 11:00 05:14 WBC 6.4 5.9 RBC 3.14 L 3.08 L Hgb 9.0 L 9.1 L Hct 29.2 L 29.2 L MCV 93.0 94.8 MCH 28.7 29.5 MCHC 30.8 L 31.2 L RDW 15.9 H 15.3 H RDW Differential 53.1 H 50.0 H Plt Count 157 182 MPV 8.9 9.4 Sodium 134 L Potassium 4.3 Chloride 94 L Carbon Dioxide 31.0 Anion Gap 9 BUN 39 H Creatinine 3.42 H Estim Creat Clear Calc 13.77 Est GFR (MDRD) Af Amer 17 L Est GFR (MDRD) Non-Af 14 L BUN/Creatinine Ratio 11.4 Glucose 196 H Calcium 8.2 L Magnesium 2.1 12/07/17 05:14 WBC RBC Hgb Hct MCV MCH MCHC RDW RDW Differential Plt Count MPV Sodium 135 L Potassium 4.3 Chloride 96 L Carbon Dioxide 28.0 Anion Gap 11 BUN 53 H Creatinine 3.79 H Estim Creat Clear Calc 12.43 Est GFR (MDRD) Af Amer 15 L Est GFR (MDRD) Non-Af 13 L BUN/Creatinine Ratio 14.0 Glucose 103 Calcium 8.2 L Magnesium 2.2 POC Glucose 12/07/17 12/06/17 12/06/17 06:44 20:45 16:48 POC Glucose 115 H 175 H 231 H 12/06/17 11:31 POC Glucose 240 H Assessment/Plan Active and Suspected Problems (Last Updated 11/27/17 @ 08:28 by Fahad Sesay MD) Paroxysmal A-fib (Acute) JORGE (acute kidney injury) (Acute) JORGE CKD stage 3 Baseline creatinine is around 1.5 to 2.1. Primary etiology of CKD was diabetes. sustained JORGE in hospital since admission. BP is ok UA is consistent with UTI Ct abdomen does not show any hydronephrosis. no contrast studies. No nephrotoxic agents on board right now JORGE is likely ATN. bladder scan is negative. ? AIN will plan for dialysis tomorrow TDC in am Immunology work up pending. prior dsDNA and complements were negative. 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 SS serology was negative in the past Hyperkalemia. better Anemia. s/p PRBC
[2017-12-07] MEDS: Heparin Injection 5,000 UNITS/ML Syringe 5000 UNITS SC ×2 (10:35→21:01)
[2017-12-07] MEDS: Pantoprazole Sodium 40 MG Tablet PO (10:35)
[2017-12-07] MEDS: Amiodarone 200 MG Tablet PO (10:36)
[2017-12-07] MEDS: Iron Polysaccharide Complex 150 MG CAPSULE PO (10:36)
[2017-12-07] MEDS: Metoprolol Tartrate 25 MG Tablet PO (10:36)
[2017-12-07 11:41] LABS: Bedside Glucose 196 mg/dL (70-110)
[2017-12-07] MEDS: Acetaminophen 325 MG Tablet 650 MG PO (15:05)
[2017-12-07 16:56] LABS: Bedside Glucose 204 mg/dL (70-110)
[2017-12-07] MEDS: Atorvastatin Calcium 40 MG Tablet PO (21:00)
[2017-12-07] MEDS: Gabapentin 300 MG Capsule PO (21:03)
[2017-12-07 22:06] LABS: Bedside Glucose 218 mg/dL (70-110)
[2017-12-08] VITALS (24 sets, daily range): BP systolic 116–164; BP diastolic 47–76; PULSE 55–65; RESP 12–22; TEMP 36.4–37; O2SAT 94–98
[2017-12-08] MEDS: Sulfacetamide Sodium 15ML OPTH.BTL 2 DRP OP ×6 (01:11→22:36)
[2017-12-08] MEDS: Acetaminophen 325 MG Tablet 650 MG PO ×2 (01:36→20:29)
[2017-12-08 06:26] LABS: Anion Gap 10 (5-15); BUN 70 mg/dL (7-18); BUN/Creat Ratio 16.4 RATIO (10-20); Calcium,Total 8.3 mg/dL (8.5-10.1); Chloride 96 mmol/L (98-107); Creatinine, Serum 4.26 mg/dL (0.55-1.02); EST Glomerular Filtration Rate 11 mL/min (>60); Est Glom Filt Rate - Afr Amer 13 mL/min (>60); Estimated Creatinine Clearance 11.06 ml/min; Glucose 162 mg/dL (74-106); Potassium 4.4 mmol/L (3.5-5.1); Sodium Level 136 mmol/L (136-145)
[2017-12-08 06:33] LABS: Hematocrit 28.2 % (37-47); Hemoglobin 8.7 g/dl (12.0-15.0); International Normalized Ratio 1.1; Mean Corp Hgb Conc 30.9 g/gl (32-36); Mean Corpuscular Hgb 28.7 pg (27.0-32.0); Mean Corpuscular Volume 93.1 fL (81-99); Mean Platelet Vol. 9.5 fl (6.2-12.0); Platelet Count 168 K/mm3 (150-450); RBC Distribution Width CV 15.5 % (11.6-14.6); RBC Distribution Width SD 52.3 fl (35.1-43.9); Red Blood Count 3.03 M/mm3 (4.2-5.4); White Blood Count 5.1 K/mm3 (4.4-11.0)
[2017-12-08 06:34] LABS: Partial Thromboplast Time 42.8 Seconds (24.1-36.2)
[2017-12-08 06:46] LABS: Scan Indicated on CBC? Y/N NO
[2017-12-08] MEDS: cloNIDine HCl 0.1 MG Tablet PO ×2 (07:01→22:35)
[2017-12-08] MEDS: Ipratropium/Albuterol Sulfate 3 ML AMPUL.NEB INHALATION ×3 (07:04→18:59)
[2017-12-08 07:06] LABS: Bedside Glucose 163 mg/dL (70-110)
--- NOTE | 2017-12-08 07:31 | PN_ITS ---
Patient Problems: Active and Suspected Problems (Last Updated 11/27/17 @ 08:28 by Fahad Sesay MD) Paroxysmal A-fib (Acute) JORGE (acute kidney injury) (Acute) Subjective: Patient did well overnight. No acute issues were reported. Patient feels she is subjectively unchanged compared to previous. No obvious blood loss was reported. Patient denies any pain at this time. Since is at the bedside and has no concerns at this time outside of when she will be discharged. - Physical Exam General: Alert, Oriented x3, Cooperative, No apparent distress, - - Appears older than stated age. Speaking in full sentences. Obese. HEENT: Atraumatic, PERRLA, EOMI, Normocephalic, - - No scleral icterus or injection noted. Oral: Moist Mucosa, No Gingival or Mucosal Lesions/ Ulcerations Neck: Supple, No JVD, No Nodes, Trachea Midline, - - Right IJ hemodialysis line is clean, dry and intact. Lungs: No rhonchi, No wheeze, No rales, Diminished, - - Symmetric expansion. Some cough with deep inhalation Cardiovascular: Normal S1, Normal S2, No murmurs, Bradycardic, No rub noted, No Gallop Abdomen: Bowel Sounds Present, Soft, Non Tender, Non-Distended, Obese Extremities: No clubbing, No cyanosis, Capillary Refill Less than 3 Seconds, Edema Skin: No rashes, No breakdown Musculoskeletal: No Tenderness to Palpation of Joints or Extremities Lymphatic: No Cervical, Supraclavicular, or Inguinal Adenopathy Neurological: Cranial nerves II-XII grossly intact, Neuro grossly intact, Motor Exam 5/5 strength throughout Psych/Mental Status: Alert and oriented to time, place, person, mood and affect Vital Signs Temp Pulse Resp BP Pulse Ox 36.4 C L 58 L 18 121/54 H 96 12/08/17 02:39 12/08/17 03:45 12/08/17 02:39 12/08/17 02:39 12/08/17 02:39 Oxygen Flow Rate 3.5 Oxygen Delivery Method Nasal Cannula Weight: 104.2 kg Body Mass Index (BMI) 35.7 Intake and Output for Last 24 Hours 12/06/17 12/07/17 12/08/17 23:59 23:59 23:59 Intake Total 480 / 480 360 / 360 Balance 480 / 480 360 / 360 Laboratory Tests Past 24 Hrs 12/07/17 12/08/17 12/08/17 05:14 05:05 05:05 WBC 5.1 RBC 3.03 L Hgb 8.7 L Hct 28.2 L MCV 93.1 MCH 28.7 MCHC 30.9 L RDW 15.5 H RDW Differential 52.3 H Plt Count 168 MPV 9.5 PT INR APTT Sodium 135 L 136 Potassium 4.3 4.4 Chloride 96 L 96 L Carbon Dioxide 28.0 30.0 Anion Gap 11 10 BUN 53 H 70 H Creatinine 3.79 H 4.26 H Estim Creat Clear Calc 12.43 11.06 Est GFR (MDRD) Af Amer 15 L 13 L Est GFR (MDRD) Non-Af 13 L 11 L BUN/Creatinine Ratio 14.0 16.4 Glucose 103 162 H Calcium 8.2 L 8.3 L Magnesium 2.2 12/08/17 05:05 WBC RBC Hgb Hct MCV MCH MCHC RDW RDW Differential Plt Count MPV PT 14.0 INR 1.1 APTT 42.8 H Sodium Potassium Chloride Carbon Dioxide Anion Gap BUN Creatinine Estim Creat Clear Calc Est GFR (MDRD) Af Amer Est GFR (MDRD) Non-Af BUN/Creatinine Ratio Glucose Calcium Magnesium POC Glucose 12/08/17 12/07/17 12/07/17 06:59 20:59 16:44 POC Glucose 163 H 218 H 204 H 12/07/17 11:31 POC Glucose 196 H Assessment/Plan Active and Suspected Problems (Last Updated 11/27/17 @ 08:28 by Fahad Sesay MD) Paroxysmal A-fib (Acute) JORGE (acute kidney injury) (Acute) RECOMMENDATIONS 1. Wean oxygen supplementation to keep saturations 88-92%. 2. Encourage incentive spirometer 3. Walking oximetry prior to discharge 4. Await tunneled hemodialysis line placement 5. Continue empiric BiPAP nightly 6. Follow-up in pulmonary office 2 weeks after discharge with nurse practitioner IMPRESSIONS 1. Acute on chronic hypoxic respiratory failure/end-stage COPD/pulmonary hypertension secondary to scleroderma/left pleural effusion Patient's renal function has not recovered and patient is responding to hemodialysis. Patient supposedly to have a tunneled hemodialysis catheter placed later today. Would continue with fluid removal as tolerated. Continue with aerosol therapy. Patient likely should be seen in the pulmonary office in 2 weeks following discharge. Okay to discharge from a pulmonary standpoint once renal plan is completed. 2. New onset atrial fibrillation with RVR RESOLVED > Cardiology following. Patient has reverted to normal sinus rhythm and does have a pericardial effusion. Heart rate is much better controlled today. Patient would likely benefit from right heart catheterization once euvolemic. 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 3. Acute cystitis Klebsiella pneumonia has been isolated. Patient likely could be discontinued from antibiotics 4. Hyperkalemia/CKD/morbid obesity/peripheral artery occlusive disease/ crest variant of scleroderma/HTN/DM/INES/history of cerebral hemorrhage/anemia/ stroke/HLD/neuropathic pain/vitamin D deficiency Complicates care, management, recovery, and prognosis. Renal is following. This note was generated with [employer] dictation software. It may contain incorrect words, spelling, and punctuation that were not noted in checking the note before signing. Code Visit Inpatient E&M: 12276 Subs Hosp L2
[2017-12-08] MEDS: Iron Polysaccharide Complex 150 MG CAPSULE PO (08:32)
--- NOTE | 2017-12-08 09:55 | PCM.PN.REN ---
Patient Problems: Active and Suspected Problems (Last Updated 11/27/17 @ 08:28 by Fahad Sesay MD) Paroxysmal A-fib (Acute) JORGE (acute kidney injury) (Acute) Subjective: no new complaints breathing is ok not voiding much - Physical Exam General: Alert, Oriented x3, Cooperative HEENT: Atraumatic, PERRLA, EOMI, Normocephalic Neck: Supple, No JVD, Negative Carotid Bruits Lungs: Clear to auscultation, Normal air movement Cardiovascular: Regular rate, No murmurs Abdomen: Bowel Sounds Present, Soft, Non Tender Extremities: No edema, Capillary Refill Less than 3 Seconds Skin: No rashes, No breakdown Musculoskeletal: No Tenderness to Palpation of Joints or Extremities Neurological: Cranial nerves II-XII grossly intact Psych/Mental Status: Normal Affect, Appropriate Vital Signs Temp Pulse Resp BP Pulse Ox 97.7 F L 55 L 17 116/55 L 95 12/08/17 08:30 12/08/17 08:30 12/08/17 08:30 12/08/17 08:30 12/08/17 08:30 Oxygen Flow Rate 3 Oxygen Delivery Method Nasal Cannula Weight: 104.2 kg Body Mass Index (BMI) 35.7 Intake and Output for Last 24 Hours 12/06/17 12/07/17 12/08/17 23:59 23:59 23:59 Intake Total 480 / 480 360 / 360 Balance 480 / 480 360 / 360 Laboratory Tests Past 24 Hrs 12/08/17 12/08/17 12/08/17 05:05 05:05 05:05 WBC 5.1 RBC 3.03 L Hgb 8.7 L Hct 28.2 L MCV 93.1 MCH 28.7 MCHC 30.9 L RDW 15.5 H RDW Differential 52.3 H Plt Count 168 MPV 9.5 PT 14.0 INR 1.1 APTT 42.8 H Sodium 136 Potassium 4.4 Chloride 96 L Carbon Dioxide 30.0 Anion Gap 10 BUN 70 H Creatinine 4.26 H Estim Creat Clear Calc 11.06 Est GFR (MDRD) Af Amer 13 L Est GFR (MDRD) Non-Af 11 L BUN/Creatinine Ratio 16.4 Glucose 162 H Calcium 8.3 L POC Glucose 12/08/17 12/07/17 12/07/17 06:59 20:59 16:44 POC Glucose 163 H 218 H 204 H 12/07/17 11:31 POC Glucose 196 H Assessment/Plan Active and Suspected Problems (Last Updated 11/27/17 @ 08:28 by Fahad Sesay MD) Paroxysmal A-fib (Acute) JORGE (acute kidney injury) (Acute) JORGE CKD stage 3 Baseline creatinine is around 1.5 to 2.1. Primary etiology of CKD was diabetes. sustained JORGE in hospital since admission. BP is ok UA is consistent with UTI Ct abdomen does not show any hydronephrosis. no contrast studies. No nephrotoxic agents on board right now JORGE is likely ATN. bladder scan is negative. ? AIN will plan for dialysis today Immunology work up pending. prior dsDNA and complements were negative. 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 SS serology was negative in the past Hyperkalemia. better Anemia. s/p PRBC d/w Dr Angeles. NPO for now. tunneled dialysis line later today. will arrange for dialysis today morning before line switch d/w CM. paperwork sent for dialysis unit placement. Discussed with patient and . recommended SNF placement but they want to go home. will transport serology is still pending. If no recovery in 2-3 weeks, will arrange for kidney biopsy as outpatient
[2017-12-08] MEDS: Amiodarone 200 MG Tablet PO (10:53)
[2017-12-08] MEDS: Pantoprazole Sodium 40 MG Tablet PO (10:53)
[2017-12-08] MEDS: Metoprolol Tartrate 25 MG Tablet PO ×2 (10:53→22:34)
[2017-12-08 11:06] LABS: Bedside Glucose 139 mg/dL (70-110)
--- NOTE | 2017-12-08 11:10 | PCM.PN.HOSP ---
Patient Problems: Active and Suspected Problems (Last Updated 11/27/17 @ 08:28 by Fahad Sesay MD) Paroxysmal A-fib (Acute) JORGE (acute kidney injury) (Acute) Subjective: CC: Acute kidney injury requiring hemodialysis Patient is currently undergoing hemodialysis for worsening renal dysfunction.Patient is for tunneled dialysis catheter placement today for outpatient dialysis. Patient reports no new symptoms today. Vitals/I&O's: Vital Signs Temp Pulse Resp BP Pulse Ox 97.7 F L 61 17 116/55 L 95 12/08/17 08:30 12/08/17 10:53 12/08/17 08:30 12/08/17 08:30 12/08/17 08:30 Oxygen Flow Rate 3 Oxygen Delivery Method Nasal Cannula Weight: 104.2 kg Body Mass Index (BMI) 35.7 Intake and Output for Last 24 Hours 12/06/17 12/07/17 12/08/17 23:59 23:59 23:59 Intake Total 480 / 480 360 / 360 Balance 480 / 480 360 / 360 General: Alert, Oriented x3 Neck: Supple, No JVD Lungs: Clear to auscultation Cardiovascular: Regular rate, Normal S1, Normal S2 Abdomen: Bowel Sounds Present, Soft, Non Tender, Non-Distended Extremities: No edema Neurological: Cranial nerves II-XII grossly intact, Neuro grossly intact, Motor Exam 5/5 strength throughout Psych/Mental Status: Normal Affect Laboratory Results 12/07/17 11:31: POC Glucose 196 H 12/07/17 16:44: POC Glucose 204 H 12/07/17 20:59: POC Glucose 218 H 12/08/17 05:05: WBC 5.1, RBC 3.03 L, Hgb 8.7 L, Hct 28.2 L, MCV 93.1, MCH 28.7, MCHC 30.9 L, RDW 15.5 H, RDW Differential 52.3 H, Plt Count 168, MPV 9.5 12/08/17 05:05: Sodium 136, Potassium 4.4, Chloride 96 L, Carbon Dioxide 30.0, Anion Gap 10, BUN 70 H, Creatinine 4.26 H, Estim Creat Clear Calc 11.06, Est GFR (MDRD) Af Amer 13 L, Est GFR (MDRD) Non-Af 11 L, BUN/Creatinine Ratio 16.4, Glucose 162 H, Calcium 8.3 L 12/08/17 05:05: PT 14.0, INR 1.1, APTT 42.8 H 12/08/17 06:59: POC Glucose 163 H 12/08/17 11:01: POC Glucose 139 H Current Medications Acetaminophen (Tylenol) 650 mg PO Q4H PRN PRN PRN Reason: headache or fever Last Admin: 12/08/17 01:36 Dose: 650 mg Albuterol/Ipratropium (Duoneb) 3 ml INHALATION Q6H.RT [facility] Last Admin: 12/08/17 07:04 Dose: 3 ml Amiodarone HCl (Cordarone) 200 mg PO DAILY [facility] Last Admin: 12/08/17 10:53 Dose: 200 mg Atorvastatin Calcium (Lipitor) 40 mg PO QHS [facility] Last Admin: 12/07/17 21:00 Dose: 40 mg Bisacodyl (Dulcolax) 5 mg PO DAILY PRN PRN PRN Reason: Constipation Clonidine (Catapres) 0.1 mg PO TID [facility] Last Admin: 12/08/17 07:01 Dose: 0.1 mg Dextrose (D50w Syringe) 0 gm IV X1 PRN; Protocol PRN Reason: Hypoglycemia Gabapentin (Neurontin) 300 mg PO QHS [facility] Last Admin: 12/07/17 21:03 Dose: 300 mg Glucagon () 1 mg IM .X1 PRN PRN Reason: Hypoglycemia Guaifenesin (Robitussin) 10 ml PO Q6H PRN PRN PRN Reason: COUGH/CONGESTION Heparin Sodium (Porcine) () 5,000 units SC BID [facility] Last Admin: 12/08/17 10:04 Dose: Not Given Insulin Aspart (Novolog Flexpen (Bkc)) 0 units SC ACHS [facility] PRN Reason: Protocol Last Admin: 12/08/17 11:02 Dose: Not Given Insulin Detemir (Levemir (Bkc)) 39 units SC BID [facility] Last Admin: 12/07/17 21:01 Dose: 39 u Metoprolol Tartrate (Lopressor (Beta Suzan)) 25 mg PO BID [facility] Last Admin: 12/08/17 10:53 Dose: 25 mg Ondansetron HCl (Zofran) 4 mg IV Q6H PRN PRN PRN Reason: NAUSEA Last Admin: 03/01/18 08:46 Dose: 4 mg Oxycodone HCl (Oxyir) 5 mg PO Q6H PRN PRN PRN Reason: SEVERE PAIN (6-10/10) Last Admin: 12/06/17 12:48 Dose: 5 mg Pantoprazole Sodium (Protonix) 40 mg PO DAILY [facility] Last Admin: 12/08/17 10:53 Dose: 40 mg [facility]ysaccharide [facility] ([facility] Last Admin: 12/08/17 08:32 Dose: 150 mg Sodium Chloride () 5 - 30 ml IV UD PRN PRN Reason: SALINE FLUSH Last Admin: 12/04/17 08:46 Dose: 10 ml Sulfacetamide Sodium (Sulf-10) 2 drop OP Q3H [facility] Stop: 12/12/17 13:01 Last Admin: 12/08/17 10:53 Dose: 2 drop Assessment/Plan Active and Suspected Problems (Last Updated 11/27/17 @ 08:28 by Fahad Sesay MD) Paroxysmal A-fib (Acute) JORGE (acute kidney injury) (Acute) 1. Community-acquired pneumonia ; treated with IV antibiotics. 2. Acute kidney injury superimposed on patient's CKD stage III ; tendo catheter today to continue outpatient hemodialysis. 3. Moderate left-sided pleural effusion due to volume overload, dialysis will help with this. 4. Acute on chronic hypoxic respiratory failure secondary ; continue on supplemental oxygen and wean as tolerated. 5. Anemia secondary to anemia of chronic disorder patient transfused with 1 unit PRBC . We will monitor hemoglobin and hematocrit closely. 6. New onset A. fib with RVR: Showed normal ejection fraction, the patient is on amiodarone PO. 7. Acute cystitis with Klebsiella ; treated with Levaquin based on sensitivities 8. Hypertension; this is controlled. 9. Diabetes mellitus type 2 blood 10. DVT prophylaxis with Lovenox. Code Visit Inpatient E&M: 22334 Subs Hosp L2
--- NOTE | 2017-12-08 11:11 | CASEMGMT ---
Hep B panel back and faxed to [facility] at this time. Call to [facility] and they state that because pt is Acute then they need approval from the [facility] facility and they are still waiting on that at this time. She states they will notify this RN CM when obtained. Justin RN CM
--- NOTE | 2017-12-08 13:02 | PCM.CONS.GEN ---
Problem List (1) JORGE (acute kidney injury) Status: Acute Reason for Consult Date of Consultation: 12/08/17 Reason for Consultation: Acute renal failure. In need of tunneled dialysis catheter placement. History of Present Illness: The patient is a 72 year old F who presented to the ED on 11/27 with pneumonia symptoms i.e. increased shortness of breath, weakness, nonproductive cough. Patient has multiple comorbidities. She has been evaluated by nephrology, Dr. Romeo, as an outpatient for stage III renal disease. Patient has a history of diabetes type II. Patient denies previous dialysis. Patient had a temporary right IJ dialysis catheter placed by Josi Hickman NP on 12/03/17. Patient notes she is on oxygen at home via nasal canula, 3.5 liters. She follows with Dr. Valencia. She also has a history of sleep apnea. Patient denies being seen previously by a promotional advertising assistant. Per patient , her PCP would like to refer the patient to Dr. Mcclendon for history of cardiac murmur. Patient was noted to have a new onset of Atrial fibrillation this hospitalization. Patient is currently on Heparin twice a day in the hospital. She denies previous myocardial infarction and cardiac stents. Patient has a history of intracranial hemorrhage type stroke in 2016. She was transferred to the [facility] for treatment. Dr. West is her neurologist. She notes she had completed treatment with him and no longer has to follow-up with him. Patient notes she has a balancing deficit which she was told that this may last for approximately 4-5 years. Patient walks with a walker at home. Patient is legally blind. Patient's previous surgeries include gallbladder, bilateral carpal tunnel, tonsils, s/p craniotomy. Patient's creatinine today was 4.26. Past Medical History Past Medical History (Chronic Problems): Chronic Problems (Last Updated 11/27/17 @ 08:28 by Fahad Sesay MD) Valvular heart disease (Chronic) End stage COPD (Chronic) Pulmonary hypertension (Chronic) HTN (hypertension) (Chronic) 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) S/P craniotomy (Chronic) For intracerebral hemorrhage Obesity (BMI 30.0-34.9) (Chronic) Morbid obesity (Chronic) CKD (chronic kidney disease) stage 3, GFR 30-59 ml/min (Chronic) Obstructive sleep apnea (Chronic) Untreated Type 2 diabetes mellitus (Chronic) History of cerebral hemorrhage (Chronic) Anemia (Chronic) Aortic stenosis, mild (Chronic) Mitral stenosis (Chronic) mild Stroke (Chronic) Hyperlipidemia (Chronic) Vitamin D deficiency (Chronic) Neuropathic pain (Chronic) Allergies No Known Allergies Allergy (Verified 11/27/17 05:53) Home Medications: Ambulatory Orders Medication Instructions Recorded Atorvastatin Calcium [Lipitor] 40 mg PO QHS 11/27/17 Clonidine HCl 0.1 mg PO TID 11/27/17 Ergocalciferol [Vitamin D] 50,000 unit PO QMONTH 11/27/17 Furosemide [Lasix] 60 mg PO DAILY 11/27/17 Gabapentin [Neurontin] 300 mg PO QHS 11/27/17 Insulin Aspart [Novolog Flexpen units SC 11/27/17 (BKC)] Insulin Glargine,Hum.rec.anlog 39 unit SC BID 11/27/17 [Lantus] Iron Polysaccharide Complex 150 mg PO DAILYCM 11/27/17 [Ferrex 150] Metoprolol Succinate [Toprol Xl] 25 mg PO DAILY 11/27/17 Pantoprazole Sodium [Protonix] 40 mg PO DAILY 11/27/17 Surgical History: cholecystectomy, rotator cuff repair, tonsillectomy, - - Craniotomy, bilateral carpal tunnel, Psychiatric History: No pertinent psych hx Lives: Spouse/ Significant Other Smoking Status: Never smoker Tobacco Use: Non-smoker Alcohol: None Drugs: None - *Family History Maternal History Items: Cancer, Diabetes, Renal Disease Paternal History Items: Diabetes, Heart Disease, Renal Disease Review of Systems Constitutional: Denies: Chills, Fever, Weight Change HEENT: Denies: Head Aches, Sinus Congestion, Sinus Drainage Cardiovascular: Reports: Chest Pressure Respiratory: Reports: Cough Gastrointestinal: Denies: Abdominal Pain, Nausea, Vomiting Genitourinary: Denies: Dysuria Musculoskeletal: Denies: Joint Pain, Joint Tenderness Skin: Denies: Rash, Wounds Neurological: Reports: Balance problems. Denies: Focal weakness, Numbness, Tingling Psychiatric: Denies: Anxiety, Depression, Homicidal Ideations, Suicidal Ideations Hematologic/ Lymphatic: Reports: Anemia. Denies: Easy Bruising, Easy Bleeding Patient Problems: Active and Suspected Problems (Last Updated 11/27/17 @ 08:28 by Fahad Sesay MD) Paroxysmal A-fib (Acute) JORGE (acute kidney injury) (Acute) - Physical Exam General: Alert, Oriented x3, Cooperative HEENT: Atraumatic, PERRLA, EOMI, Normocephalic Neck: Supple, No JVD, Negative Carotid Bruits Lungs: Clear to auscultation, Normal air movement Cardiovascular: Regular rate, No murmurs, Bradycardic Abdomen: Soft, Non Tender, Obese Extremities: No edema, Capillary Refill Less than 3 Seconds Skin: No rashes, No breakdown Musculoskeletal: No Tenderness to Palpation of Joints or Extremities Neurological: Neuro grossly intact Psych/Mental Status: Appropriate, Depressed Vital Signs Temp Pulse Resp BP Pulse Ox 97.7 F L 56 L 17 116/55 L 95 12/08/17 08:30 12/08/17 11:29 12/08/17 08:30 12/08/17 08:30 12/08/17 08:30 Oxygen Flow Rate 3 Oxygen Delivery Method Nasal Cannula Weight: 229 lb 11.547 oz Body Mass Index (BMI) 35.7 Intake and Output for Last 24 Hours 12/06/17 12/07/17 12/08/17 23:59 23:59 23:59 Intake Total 480 / 480 360 / 360 75 / 75 Balance 480 / 480 360 / 360 75 / 75 Laboratory Tests Past 24 Hrs 12/08/17 12/08/17 12/08/17 05:05 05:05 05:05 WBC 5.1 RBC 3.03 L Hgb 8.7 L Hct 28.2 L MCV 93.1 MCH 28.7 MCHC 30.9 L RDW 15.5 H RDW Differential 52.3 H Plt Count 168 MPV 9.5 PT 14.0 INR 1.1 APTT 42.8 H Sodium 136 Potassium 4.4 Chloride 96 L Carbon Dioxide 30.0 Anion Gap 10 BUN 70 H Creatinine 4.26 H Estim Creat Clear Calc 11.06 Est GFR (MDRD) Af Amer 13 L Est GFR (MDRD) Non-Af 11 L BUN/Creatinine Ratio 16.4 Glucose 162 H Calcium 8.3 L POC Glucose 12/08/17 12/08/17 12/07/17 11:01 06:59 20:59 POC Glucose 139 H 163 H 218 H 12/07/17 16:44 POC Glucose 204 H Assessment/Plan Active and Suspected Problems (Last Updated 11/27/17 @ 08:28 by Fahad Sesay MD) Paroxysmal A-fib (Acute) JORGE (acute kidney injury) (Acute) I have been consulted in conjunction with Dr. Angeles for tunneled dialysis catheter placement. Impression: Acute on chronic renal failure Plan: I have discussed this patient with Dr. Angeles. Dr. Angeles will plan to perform a left internal jugular tunneled dialysis catheter placement today. Procedure details, risks and benefits have been explained to the patient and her . Patient has been NPO. Her Heparin was stopped this morning. Following the patient's dialysis treatment today, her temporary right IJ dialysis catheters will need to be removed. Patient and her have had the opportunity to ask and have questions answered. Patient verbally understands and agrees with the proposed plan. Thank you for the opportunity to participate in this patient's care. My recommendations will be available via electronic medical records.
[2017-12-08 16:08] LABS: Albumin 2.9 g/dL (2.9-4.4); Alpha-1-Globulins 0.4 g/dL (0.0-0.4); Alpha-2-Globulins 1.1 g/dL (0.4-1.0); Cytoplasmic Ab (C-ANCA) <1:20 titer (Neg:<1:20); Gamma Globulin 1.5 g/dL (0.4-1.8); Immunoglobulin A 482 mg/dL (87-352); Immunoglobulin G 1239 mg/dL (700-1600); Immunoglobulin M 427 mg/dL (26-217); PROEL- A/G Ratio 0.6 (0.7-1.7); PROEL- Albumin 2.7 g/dL (2.9-4.4); PROEL- Alpha-1 Globulin 0.4 g/dL (0.0-0.4); PROEL- Alpha-2 Globulin 1.2 g/dL (0.4-1.0); PROEL- Gamma Globulin 1.6 g/dL (0.4-1.8); PROEL- Globulin, Total 4.2 g/dL (2.2-3.9); PROEL- TOTAL PROTEIN 6.9 g/dL (6.0-8.5)
--- NOTE | 2017-12-08 16:20 | DIALYSIS ---
Hemodialysis complete. Pt tolerated well. Net uf 2000ml. sutures removed from RIJ tunnelled catheter, hob flat, had patient hold breathe, catheter removed, intact. Pt resumed normal breathing. pressure held x 6 mins, hemostasis complete. pressure dressing applied. no bleeding or hematoma noted. Report to ELI Hutchinson.
[2017-12-08] MEDS: Bupivacaine Mpf 0.5% 30 ML VIAL (16:46)
[2017-12-08] MEDS: Cefazolin 2 GM in 0.9% Normal Saline 100 ML IV (16:51)
[2017-12-08] MEDS: Heparin 10,000 UNITS/10 ML Vial 10000 UNITS (16:55)
--- NOTE | 2017-12-08 17:03 | PCM.OPRPT ---
Problem List (1) JORGE (acute kidney injury) Status: Acute Report of Operation Date of Procedure: 12/08/17 Pre-Operative Diagnosis: Acute kidney injury Post-Operative Diagnosis: Same Surgery/Procedure Performed:: Left internal jugular 23 cm pre-curved tunneled palindrome hemodialysis catheter placement. Reference number [id number]. Lot #[id number] Description of Surgical Findings:: Timeout and informed consent was obtained. 72-year-old female was taken the operating. He was placed upon the table. She underwent monitored anesthesia care. Ancef 2 g are given intravenously. The left neck and chest were sterilely prepped and draped. 1% lidocaine mixed 50-50 with 0.5% Marcaine was used as local anesthetic. A total of 11 cc was used. Ultrasound was used to identify the left internal jugular vein. Local was instilled. Micropuncture needle was inserted under ultrasound guidance. Micropuncture wire inserted. Fluoroscopy demonstrated good positioning. Local was instilled down upon the left chest wall. An exit site was selected. The 23 cm pre-curved palindrome catheter was tunneled from the chest of the neck. The micropuncture sheath was placed over the wire. An 035 J-wire was inserted. Fluoroscopy demonstrated good position. Serial dilatation was performed. The sheath dilator was inserted. The dilator wire removed. The catheter was advanced through the sheath. The sheath was split. The catheter was positioned nicely at the SVC atrial junction. It was secured to skin with interrupted 3-0 nylon. The neck site was closed with interrupted 5-0 Vicryl subdermal stitch. Steri-Strips Telfa OpSite dressing applied to the neck. Silver impregnated dressing applied to the exit site. The catheter was aspirated. It was then flushed with 2 cc of heparinized saline per channel. She was subsequently taken to the recovery or insect condition with minimal blood loss no specimens no drains. Stat portable chest x-ray is pending. No apparent complication. Anoop Angeles M.D., F.A.C.S. Type of Anesthesia:: Local MAC Anesthesiologist: Ghulam Boateng
--- NOTE | 2017-12-08 17:22 | RAD_ITS ---
STUDY: X-RAY CHEST REASON FOR EXAM: Female, 72 years old. Line placement verification. TECHNIQUE: Single frontal view of the chest. COMPARISON: December 03, 2017 FINDINGS: Right internal jugular catheter has been removed. A left internal jugular triple-lumen catheter has been inserted with the tip projected over the mid-SVC. No complications are noted. There is a stable interstitial pattern diffusely compared to the prior study. There is no demonstrated pleural abnormality. There is stable cardiomegaly. Normal mediastinum and jose f. Normal visualized pulmonary arteries. Normal visualized aortic arch and descending thoracic aorta. Normal visualized thoracic spine. Normal visualized ribs, clavicles, and shoulders. There is no demonstrated abnormality of the visualized soft tissue structures of the upper abdomen. RAD/Chest 1 View (Portable) IMPRESSION: Stable cardiomegaly with diffuse interstitial pattern. Placement of left internal jugular triple-lumen catheter without complications, with the tip projected into the mid-SVC. Electronically Signed: Kvng Yung MD at 17:47 EST , Service support ,
[2017-12-08 18:06] LABS: Bedside Glucose 121 mg/dL (70-110)
[2017-12-08 22:21] LABS: Bedside Glucose 238 mg/dL (70-110)
[2017-12-08] MEDS: Gabapentin 300 MG Capsule PO (22:34)
[2017-12-08] MEDS: Atorvastatin Calcium 40 MG Tablet PO (22:36)
[2017-12-09] VITALS (12 sets, daily range): BP systolic 116–147; BP diastolic 62–75; PULSE 53–64; RESP 12–20; TEMP 36.4–37.2; O2SAT 94–100
[2017-12-09] MEDS: Ipratropium/Albuterol Sulfate 3 ML AMPUL.NEB INHALATION ×3 (01:19→13:03)
[2017-12-09] MEDS: Sulfacetamide Sodium 15ML OPTH.BTL 2 DRP OP ×4 (01:19→13:02)
[2017-12-09] MEDS: cloNIDine HCl 0.1 MG Tablet PO ×2 (05:47→14:21)
[2017-12-09] MEDS: oxyCODONE 5 MG Tablet PO (05:47)
--- NOTE | 2017-12-09 06:00 | PCM.PN.SRG ---
Patient Problems: Active and Suspected Problems (Last Updated 11/27/17 @ 08:28 by Fahad Sesay MD) Paroxysmal A-fib (Acute) JORGE (acute kidney injury) (Acute) Subjective: Pt without complaint, minimal soreness left chest--feels better than previous catheters - Physical Exam Lungs: - - Left chest clean, supple, dry Vital Signs Temp Pulse Resp BP Pulse Ox 97.6 F L 57 L 18 147/75 H 100 12/09/17 04:09 12/09/17 04:09 12/09/17 04:09 12/09/17 04:09 12/09/17 04:09 Oxygen Flow Rate (L/min) 3.5 Oxygen Delivery Method Bi-pap Weight: 228 lb 6.382 oz Body Mass Index (BMI) 35.7 Intake and Output for Last 24 Hours 12/07/17 12/08/17 12/09/17 23:59 23:59 23:59 Intake Total 360 / 360 715 / 715 80 / 80 Output Total 4300 / 4300 Balance 360 / 360 -3585 / -3585 80 / 80 Laboratory Tests Past 24 Hrs 12/08/17 12/08/17 12/08/17 05:05 05:05 05:05 WBC 5.1 RBC 3.03 L Hgb 8.7 L Hct 28.2 L MCV 93.1 MCH 28.7 MCHC 30.9 L RDW 15.5 H RDW Differential 52.3 H Plt Count 168 MPV 9.5 PT 14.0 INR 1.1 APTT 42.8 H Sodium 136 Potassium 4.4 Chloride 96 L Carbon Dioxide 30.0 Anion Gap 10 BUN 70 H Creatinine 4.26 H Estim Creat Clear Calc 11.06 Est GFR (MDRD) Af Amer 13 L Est GFR (MDRD) Non-Af 11 L BUN/Creatinine Ratio 16.4 Glucose 162 H Calcium 8.3 L 12/09/17 05:35 WBC RBC Hgb Hct MCV MCH MCHC RDW RDW Differential Plt Count MPV PT INR APTT Sodium Pending Potassium Pending Chloride Pending Carbon Dioxide Pending Anion Gap Pending BUN Pending Creatinine Pending Estim Creat Clear Calc Est GFR (MDRD) Af Amer Pending Est GFR (MDRD) Non-Af Pending BUN/Creatinine Ratio Pending Glucose Pending Calcium Pending POC Glucose 12/08/17 12/08/17 12/08/17 22:18 17:54 11:01 POC Glucose 238 H 121 H 139 H 12/08/17 06:59 POC Glucose 163 H Assessment/Plan Active and Suspected Problems (Last Updated 11/27/17 @ 08:28 by Fahad Sesay MD) Paroxysmal A-fib (Acute) JORGE (acute kidney injury) (Acute) May initiate use of catheters when appropriate. Will await outpt referral for either catheter removal or possible fistula evaluation, thank you.
[2017-12-09 06:27] LABS: Anion Gap 8 (5-15); BUN 46 mg/dL (7-18); BUN/Creat Ratio 14.6 RATIO (10-20); Chloride 95 mmol/L (98-107); Creatinine, Serum 3.16 mg/dL (0.55-1.02); EST Glomerular Filtration Rate 15 mL/min (>60); Est Glom Filt Rate - Afr Amer 19 mL/min (>60); Estimated Creatinine Clearance 14.91 ml/min; Glucose 142 mg/dL (74-106); Potassium 4.3 mmol/L (3.5-5.1); Sodium Level 134 mmol/L (136-145)
[2017-12-09 06:55] LABS: Bedside Glucose 153 mg/dL (70-110)
--- NOTE | 2017-12-09 07:44 | PCM.PROGNOTE ---
Patient Problems: Active and Suspected Problems (Last Updated 11/27/17 @ 08:28 by Fahad Sesay MD) Paroxysmal A-fib (Acute) JORGE (acute kidney injury) (Acute) Subjective: Patient did well overnight. Patient did have hemodialysis yesterday without complication. Patient also had a tunneled hemodialysis line placed without complication. Patient reports pain is well controlled. No increase in dyspnea. - Physical Exam General: Alert, Oriented x3, Cooperative, No apparent distress, - - Obese. Speaking in full sentences. HEENT: Atraumatic, PERRLA, EOMI, Normocephalic, - - No scleral icterus or injection noted. Oral: Moist Mucosa, No Gingival or Mucosal Lesions/ Ulcerations Neck: Supple, No JVD, No Nodes, Trachea Midline, - - Tunneled hemodialysis line is clean, dry and intact. Lungs: No rhonchi, No wheeze, No rales, Diminished, - - Symmetric expansion. No dullness to percussion. Cardiovascular: Regular rate, Regular Rhythm, Normal S1, Normal S2, No murmurs, No rub noted, No Gallop Abdomen: Bowel Sounds Present, Soft, Non Tender, Non-Distended, Obese Extremities: No clubbing, No cyanosis, Capillary Refill Less than 3 Seconds, Edema Skin: No rashes, No breakdown Musculoskeletal: No Tenderness to Palpation of Joints or Extremities Lymphatic: No Cervical, Supraclavicular, or Inguinal Adenopathy Neurological: Cranial nerves II-XII grossly intact, Neuro grossly intact, Motor Exam 5/5 strength throughout Psych/Mental Status: Alert and oriented to time, place, person, mood and affect Vital Signs Temp Pulse Resp BP Pulse Ox 36.4 C L 55 L 18 147/75 H 100 12/09/17 04:09 12/09/17 06:47 12/09/17 04:09 12/09/17 04:09 12/09/17 04:09 Oxygen Flow Rate (L/min) 3.5 Oxygen Delivery Method Bi-pap Weight: 103.6 kg Body Mass Index (BMI) 35.7 Intake and Output for Last 24 Hours 12/07/17 12/08/17 12/09/17 23:59 23:59 23:59 Intake Total 360 / 360 715 / 715 100 / 100 Output Total 4300 / 4300 0 / 0 Balance 360 / 360 -3585 / -3585 100 / 100 Laboratory Tests Past 24 Hrs 12/09/17 05:35 Sodium 134 L Potassium 4.3 Chloride 95 L Carbon Dioxide 31.0 Anion Gap 8 BUN 46 H Creatinine 3.16 H Estim Creat Clear Calc 14.91 Est GFR (MDRD) Af Amer 19 L Est GFR (MDRD) Non-Af 15 L BUN/Creatinine Ratio 14.6 Glucose 142 H Calcium 8.0 L POC Glucose 12/09/17 12/08/17 12/08/17 06:44 22:18 17:54 POC Glucose 153 H 238 H 121 H 12/08/17 11:01 POC Glucose 139 H Clinical Impression(s) from Imaging Studies Chest X-Ray 12/08/17 17:22 IMPRESSION: Stable cardiomegaly with diffuse interstitial pattern. Placement of left internal jugular triple-lumen catheter without complications, with the tip projected into the mid-SVC. Electronically Signed: Kvng Yung MD at 17:47 EST , Service support , Assessment/Plan Active and Suspected Problems (Last Updated 11/27/17 @ 08:28 by Fahad Sesay MD) Paroxysmal A-fib (Acute) JORGE (acute kidney injury) (Acute) RECOMMENDATIONS 1. Wean oxygen supplementation to keep saturations 88-92%. 2. Encourage incentive spirometer 3. Walking oximetry prior to discharge 4. Okay to cancel appointment with Dr. Carroll tomorrow 5. Continue empiric BiPAP nightly 6. Follow-up in pulmonary office 2 weeks after discharge with nurse practitioner 7. Okay to discharge from a pulmonary perspective IMPRESSIONS 1. Acute on chronic hypoxic respiratory failure/end-stage COPD/pulmonary hypertension secondary to scleroderma/left pleural effusion Patient's renal function has not recovered and patient is responding to hemodialysis. Patient had a tunneled hemodialysis catheter placed yesterday. Would continue with fluid removal as tolerated. Continue with aerosol therapy. Patient likely should be seen in the pulmonary office in 2 weeks following discharge. Okay to cancel patient's appointment for tomorrow with Dr. Carroll. Okay to discharge from a pulmonary standpoint once renal plan is completed. 2. New onset atrial fibrillation with RVR RESOLVED > Cardiology following. Patient has reverted to normal sinus rhythm and does have a pericardial effusion. Heart rate is much better controlled today. Patient would likely benefit from right heart catheterization once euvolemic. 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 3. Acute cystitis Klebsiella pneumonia has been isolated. Completed a course of antibiotics 4. Hyperkalemia/CKD/morbid obesity/peripheral artery occlusive disease/crest variant of scleroderma/HTN/DM/INES/history of cerebral hemorrhage/anemia/stroke/HLD/neuropathic pain/vitamin D deficiency Complicates care, management, recovery, and prognosis. Renal is following. This note was generated with [employer] dictation software. It may contain incorrect words, spelling, and punctuation that were not noted in checking the note before signing. Code Visit Inpatient E&M: 75502 Subs Hosp L2
--- NOTE | 2017-12-09 07:47 | PN_ITS ---
Patient Problems: Active and Suspected Problems (Last Updated 11/27/17 @ 08:28 by Fahad Sesay MD) Paroxysmal A-fib (Acute) JORGE (acute kidney injury) (Acute) Subjective: Patient did well overnight. Patient did have hemodialysis yesterday without complication. Patient also had a tunneled hemodialysis line placed without complication. Patient reports pain is well controlled. No increase in dyspnea. - Physical Exam General: Alert, Oriented x3, Cooperative, No apparent distress, - - Obese. Speaking in full sentences. HEENT: Atraumatic, PERRLA, EOMI, Normocephalic, - - No scleral icterus or injection noted. Oral: Moist Mucosa, No Gingival or Mucosal Lesions/ Ulcerations Neck: Supple, No JVD, No Nodes, Trachea Midline, - - Tunneled hemodialysis line is clean, dry and intact. Lungs: No rhonchi, No wheeze, No rales, Diminished, - - Symmetric expansion. No dullness to percussion. Cardiovascular: Regular rate, Regular Rhythm, Normal S1, Normal S2, No murmurs, No rub noted, No Gallop Abdomen: Bowel Sounds Present, Soft, Non Tender, Non-Distended, Obese Extremities: No clubbing, No cyanosis, Capillary Refill Less than 3 Seconds, Edema Skin: No rashes, No breakdown Musculoskeletal: No Tenderness to Palpation of Joints or Extremities Lymphatic: No Cervical, Supraclavicular, or Inguinal Adenopathy Neurological: Cranial nerves II-XII grossly intact, Neuro grossly intact, Motor Exam 5/5 strength throughout Psych/Mental Status: Alert and oriented to time, place, person, mood and affect Vital Signs Temp Pulse Resp BP Pulse Ox 36.4 C L 55 L 18 147/75 H 100 12/09/17 04:09 12/09/17 06:47 12/09/17 04:09 12/09/17 04:09 12/09/17 04:09 Oxygen Flow Rate (L/min) 3.5 Oxygen Delivery Method Bi-pap Weight: 103.6 kg Body Mass Index (BMI) 35.7 Intake and Output for Last 24 Hours 12/07/17 12/08/17 12/09/17 23:59 23:59 23:59 Intake Total 360 / 360 715 / 715 100 / 100 Output Total 4300 / 4300 0 / 0 Balance 360 / 360 -3585 / -3585 100 / 100 Laboratory Tests Past 24 Hrs 12/09/17 05:35 Sodium 134 L Potassium 4.3 Chloride 95 L Carbon Dioxide 31.0 Anion Gap 8 BUN 46 H Creatinine 3.16 H Estim Creat Clear Calc 14.91 Est GFR (MDRD) Af Amer 19 L Est GFR (MDRD) Non-Af 15 L BUN/Creatinine Ratio 14.6 Glucose 142 H Calcium 8.0 L POC Glucose 12/09/17 12/08/17 12/08/17 06:44 22:18 17:54 POC Glucose 153 H 238 H 121 H 12/08/17 11:01 POC Glucose 139 H Clinical Impression(s) from Imaging Studies Chest X-Ray 12/08/17 17:22 IMPRESSION: Stable cardiomegaly with diffuse interstitial pattern. Placement of left internal jugular triple-lumen catheter without complications, with the tip projected into the mid-SVC. Electronically Signed: Kvng Yung MD at 17:47 EST , Service support , Assessment/Plan Active and Suspected Problems (Last Updated 11/27/17 @ 08:28 by Fahad Sesay MD) Paroxysmal A-fib (Acute) JORGE (acute kidney injury) (Acute) RECOMMENDATIONS 1. Wean oxygen supplementation to keep saturations 88-92%. 2. Encourage incentive spirometer 3. Walking oximetry prior to discharge 4. Okay to cancel appointment with Dr. Carroll tomorrow 5. Continue empiric BiPAP nightly 6. Follow-up in pulmonary office 2 weeks after discharge with nurse practitioner 7. Okay to discharge from a pulmonary perspective IMPRESSIONS 1. Acute on chronic hypoxic respiratory failure/end-stage COPD/pulmonary hypertension secondary to scleroderma/left pleural effusion Patient's renal function has not recovered and patient is responding to hemodialysis. Patient had a tunneled hemodialysis catheter placed yesterday. Would continue with fluid removal as tolerated. Continue with aerosol therapy. Patient likely should be seen in the pulmonary office in 2 weeks following discharge. Okay to cancel patient's appointment for tomorrow with Dr. Carroll. Okay to discharge from a pulmonary standpoint once renal plan is completed. 2. New onset atrial fibrillation with RVR RESOLVED > Cardiology following. Patient has reverted to normal sinus rhythm and does have a pericardial effusion. Heart rate is much better controlled today. Patient would likely benefit from right heart catheterization once euvolemic. 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 3. Acute cystitis Klebsiella pneumonia has been isolated. Completed a course of antibiotics 4. Hyperkalemia/CKD/morbid obesity/peripheral artery occlusive disease/ crest variant of scleroderma/HTN/DM/INES/history of cerebral hemorrhage/anemia/ stroke/HLD/neuropathic pain/vitamin D deficiency Complicates care, management, recovery, and prognosis. Renal is following. This note was generated with [employer] dictation software. It may contain incorrect words, spelling, and punctuation that were not noted in checking the note before signing. Code Visit Inpatient E&M: 71720 Subs Hosp L2
[2017-12-09] MEDS: Heparin Injection 5,000 UNITS/ML Syringe 5000 UNITS SC (08:24)
[2017-12-09] MEDS: Amiodarone 200 MG Tablet PO (08:25)
[2017-12-09] MEDS: Iron Polysaccharide Complex 150 MG CAPSULE PO (08:25)
[2017-12-09] MEDS: Metoprolol Tartrate 25 MG Tablet PO (08:25)
[2017-12-09] MEDS: Pantoprazole Sodium 40 MG Tablet PO (08:26)
--- NOTE | 2017-12-09 10:12 | CASEMGMT ---
Addendum entered by Zelda Winter 12/09/17 10:34: Call from Sussy at [facility] and she states that they are able to take pt at this time. Pt/ updated about [place] and that we are still waiting on dialysis approval at this time, voice understanding. Justin BENITEZ CM Original Note: Referral to Sussy [facility] for RN, PT/OT, voices understanding. Sussy states she will call this RN CM to verify that they can take pt. Order was already placed. Justin BENITEZ CM
[2017-12-09 11:36] LABS: Bedside Glucose 262 mg/dL (70-110)
[2017-12-09 11:50] LABS: Perinuclear Ab (P-ANCA) >1:640 titer (Neg:<1:20)
--- NOTE | 2017-12-09 12:16 | CASEMGMT ---
Addendum entered by Zelda Winter 12/09/17 13:27: This RN CM has not received call back from [facility] referral line. [facility] on pt's [facility] and per Elsa, she believes chair time was assigned but she will look into it and call this RN CM back. Advised Elsa that they would like to discharge pt today, voices understanding. This RN CM received call from therapy, stating that they have concerns about pt going home with [facility] as opposed to SNF placement. This RN CM has advised pt/ mulitiple times of same concerns and pt/ insist on her going home with [facility] at this time. Justin BENITEZ CM Original Note: Call placed to Michael at [facility] to check on status of dialysis set up for pt at this time and message left at this time. Per Dr. Wilson, pt is ready for discharge today as soon as set up complete. Justin BENITEZ CM
--- NOTE | 2017-12-09 14:02 | PCM.PN.REN ---
Patient Problems: Active and Suspected Problems (Last Updated 11/27/17 @ 08:28 by Fahad Sesay MD) Paroxysmal A-fib (Acute) JORGE (acute kidney injury) (Acute) Subjective: no new complaints voided once today - Physical Exam General: Alert, Oriented x3, Cooperative HEENT: Atraumatic, PERRLA, EOMI, Normocephalic Neck: Supple, No JVD, Negative Carotid Bruits Lungs: Clear to auscultation, Normal air movement Cardiovascular: Regular rate, No murmurs Abdomen: Bowel Sounds Present, Soft, Non Tender Extremities: No edema, Capillary Refill Less than 3 Seconds Skin: No rashes, No breakdown Musculoskeletal: No Tenderness to Palpation of Joints or Extremities Neurological: Cranial nerves II-XII grossly intact Psych/Mental Status: Normal Affect, Appropriate Vital Signs Temp Pulse Resp BP Pulse Ox 99.0 F 64 18 127/62 H 96 12/09/17 08:20 12/09/17 13:23 12/09/17 13:23 12/09/17 08:20 12/09/17 08:20 Oxygen Flow Rate (L/min) 3 Oxygen Delivery Method Room Air Weight: 103.6 kg Body Mass Index (BMI) 35.7 Intake and Output for Last 24 Hours 12/07/17 12/08/17 12/09/17 23:59 23:59 23:59 Intake Total 360 / 360 715 / 715 340 / 340 Output Total 4300 / 4300 0 / 0 Balance 360 / 360 -3585 / -3585 340 / 340 Laboratory Tests Past 24 Hrs 12/03/17 12/09/17 15:35 05:35 Sodium 134 L Potassium 4.3 Chloride 95 L Carbon Dioxide 31.0 Anion Gap 8 BUN 46 H Creatinine 3.16 H Estim Creat Clear Calc 14.91 Est GFR (MDRD) Af Amer 19 L Est GFR (MDRD) Non-Af 15 L BUN/Creatinine Ratio 14.6 Glucose 142 H Calcium 8.0 L Total Protein (PEP) 6.9 Albumin (PEP) 2.7 L Globulin (PEP) 4.2 H Albumin/Globulin (PEP) 0.6 L Hbfyb-7-Cpewiuzih 0.4 Urpxv-1-Jpszfnvcn 1.2 H Beta Globulins 1.0 Gamma Globulins 1.6 M-Junior PEP Note Comment PEP Interpretation Comment IgG 1239 IgA 482 H IgM 427 H Immunofixation Screen Comment Albumin (SHANDRA) 2.9 Albumin/Globulin (SHANDRA) 0.8 Kzmtd-9-Thxiwgfgl SHANDRA 0.4 Iltzp-7-Tyahzcpjy SHANDRA 1.1 H Beta-Globulins (SHANRDA) 1.0 Gamma Globulins (SHANDRA) 4.0 H SHANDRA M-Junior SHANDRA Comments Comment c-ANCA Antibody <1:20 Atypical p-ANCA <1:20 p-ANCA Antibody >1:640 H Anti-ss DNA IgG Ab 242 H POC Glucose 12/09/17 12/09/17 12/08/17 11:15 06:44 22:18 POC Glucose 262 H 153 H 238 H 12/08/17 17:54 POC Glucose 121 H Assessment/Plan Active and Suspected Problems (Last Updated 11/27/17 @ 08:28 by Fahad Sesay MD) Paroxysmal A-fib (Acute) JORGE (acute kidney injury) (Acute) JORGE CKD stage 3 Baseline creatinine is around 1.5 to 2.1. Primary etiology of CKD was diabetes. sustained JORGE in hospital since admission. BP is ok UA is consistent with UTI Ct abdomen does not show any hydronephrosis. no contrast studies. No nephrotoxic agents on board right now JORGE is likely ATN. bladder scan is negative. ? AIN will plan for dialysis today Immunology work up pending. prior dsDNA and complements were negative. 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 SS serology was negative in the past Hyperkalemia. better Anemia. s/p PRBC Discussed with patient and . recommended SNF placement but they want to go home. will transport serology is still pending. If no recovery in 2-3 weeks, will arrange for kidney biopsy as outpatient
--- NOTE | 2017-12-09 14:58 | CASEMGMT ---
This RN CM received fax from [facility] with chair time starting 12/12/17 at 0620, but per Dr. Freeman, pt will start 12/10/17 at 0600. Call to [facility] to verify start date is 12/10/17 at 0600 and per Jazmin, pt does have chair time starting tomorrow 12/10/17. Pt/ updated at this time and voice understanding. Original dialysis schedule letter to pt/ at this time and they voice no further questions/concerns/needs at this time. This RN RO once again discussed dispo plan with pt/ and pt states 'I am going home.' Dr. Wilson notified at this time and states is placing discharge in at this time. Call to Sussy at [facility] to make her aware that pt is discharging today, voices understanding. Rox BENITEZ aware at this time, voices understanding. Justin BENITEZ CM
--- NOTE | 2017-12-09 15:09 | PCM.DC ---
- Discharge Diagnoses Current Active Problems: Current Active and Chronic Problems (Last Updated 11/27/17 @ 08:28 by Fahad Sesay MD) Paroxysmal A-fib (Acute) Valvular heart disease (Chronic) Pulmonary hypertension (Chronic) JORGE (acute kidney injury) (Acute) You will use the following diet at home:: Renal (restricted protein/sodium) Discharge Activity: Return to Normal Activity Allergies/Adverse Reactions: Allergies No Known Allergies Allergy (Verified 11/27/17 05:53) Medications to take at Discharge Atorvastatin Calcium [Lipitor] 40 mg PO QHS 11/27/17 Clonidine HCl 0.1 mg PO TID 11/27/17 Ergocalciferol [Vitamin D] 50,000 unit PO QMONTH 11/27/17 Furosemide [Lasix] 60 mg PO DAILY 11/27/17 Gabapentin [Neurontin] 300 mg PO QHS 11/27/17 Insulin Aspart [Novolog Flexpen] units SC 11/27/17 Insulin Glargine,Hum.rec.anlog [Lantus] 39 unit SC BID 11/27/17 Iron Polysaccharide Complex [Ferrex 150] 150 mg PO DAILYCM 11/27/17 Metoprolol Succinate [Toprol Xl] 25 mg PO DAILY 11/27/17 Pantoprazole Sodium [Protonix] 40 mg PO DAILY 11/27/17 Amiodarone HCl [Cordarone] 200 mg PO DAILY #30 tab 12/09/17 Aspirin E.C. [Ecotrin] 325 mg PO DAILY@0800 #30 tab 12/09/17 Iron Polysaccharide Complex [Ferrex 150] 150 mg PO DAILYCM capsule 12/09/17 Metoprolol Tartrate [Lopressor (beta stephania)] 25 mg PO BID #60 tablet 12/09/17 The following prescriptions were given: Amiodarone HCl [Cordarone] 200 mg PO DAILY #30 tab Aspirin E.C. [Ecotrin] 325 mg PO DAILY@0800 #30 tab Metoprolol Tartrate [Lopressor (beta stephania)] 25 mg PO BID #60 tablet Primary Care Physician: Mat Duffy MD [Primary Care Provider] - Within 2 Weeks
--- NOTE | 2017-12-09 15:15 | DS.PCM_ITS ---
Discharge Date and Diagnosis - Problem List Patient Problems: Active and Suspected Problems (Last Updated 11/27/17 @ 08:28 by Fahad Sesay MD) Paroxysmal A-fib (Acute) JORGE (acute kidney injury) (Acute) Date of Admission: 11/27/17 Date of Discharge: 12/09/17 - Primary Discharge Diagnosis Active and Suspected Problems (Last Updated 11/27/17 @ 08:28 by Fahad Sesay MD) Paroxysmal A-fib (Acute) JORGE (acute kidney injury) (Acute) - Secondary Discharge Diagnosis Chronic Problems (Last Updated 11/27/17 @ 08:28 by Fahad Sesay MD) Valvular heart disease (Chronic) End stage COPD (Chronic) Pulmonary hypertension (Chronic) HTN (hypertension) (Chronic) 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) S/P craniotomy (Chronic) For intracerebral hemorrhage Obesity (BMI 30.0-34.9) (Chronic) Morbid obesity (Chronic) CKD (chronic kidney disease) stage 3, GFR 30-59 ml/min (Chronic) Obstructive sleep apnea (Chronic) Untreated Type 2 diabetes mellitus (Chronic) History of cerebral hemorrhage (Chronic) Anemia (Chronic) Aortic stenosis, mild (Chronic) Mitral stenosis (Chronic) mild Stroke (Chronic) Hyperlipidemia (Chronic) Vitamin D deficiency (Chronic) Neuropathic pain (Chronic) Hospital Course and Treatment Operations: None Summary of Care Provided: The patient is a 72 year old F who presented to the ED because of chest pain. Her symptoms started 3-4 days ago prior to her presentation with left-sided chest pain, sharp pain, 7 out of 10 in severity, extends to the left lateral chest, aggravated by coughing or taking a deep breath, associated with minimal shortness of breath and minimal cough and without relieving factors. Chest x- ray showed left side pleural effusion with possible underlying infiltrate or consolidation. She was admitted for left side pleural effusion, suspected community-acquired pneumonia, acute on chronic hypoxic respiratory failure, mild hyperkalemia and acute cystitis. Shortly after admission to the floor, patient developed new onset A. fib with RVR, and Cardizem but ultimately changed to amiodarone. She will had progressive acute kidney injury superimposed on stage III chronic kidney disease, she ultimately required hemodialysis, tunneled dialysis catheter was placed and she will continue hemodialysis as an outpatient. Patient was discharged home in a stable condition. Recommended ECF placement but it was declined and family. 1. Community-acquired pneumonia ; she was was adequately treated with IV antibiotics. 2. Acute kidney injury superimposed on patient's CKD stage III ; catheter placed 11/11/2017 an she will continue outpatient hemodialysis. 3. Moderate left-sided pleural effusion due to volume overload, improved with dialysis . 4. Acute on chronic hypoxic respiratory failure secondary ; continue on supplemental oxygen . 5. Anemia secondary to anemia of chronic disorder patient transfused with 1 unit PRBC . 6. New onset A. fib with RVR: echo showed normal ejection fraction, the patient is on amiodarone PO, her coagulation was discontinued due to worsening anemia. she is on full dose enteric-coated aspirin. 7. Acute cystitis with Klebsiella ; treated with Levaquin based on sensitivities. 8. Hypertension; this is controlled. 9. Diabetes mellitus type 2; continue on Lantus and regular insulin Physical exam at the time of discharge; vital signs were stable. she was alert and oriented to time place and person. she did not appear to be any form of distress. S1 and S2 heard no murmur or gallop Lung exam was clear to auscultation with no adventitious sounds. Abdomen was soft nontender with normal bowel sounds. extremity exam did not reveal any edema, palpable pulses bilaterally. Neurologic exam was grossly intact. Discharge Diet: No Restrictions Discharge Activity: Return to Normal Activity Home Medications: Medications to take at Discharge Atorvastatin Calcium [Lipitor] 40 mg PO QHS 11/27/17 Clonidine HCl 0.1 mg PO TID 11/27/17 Ergocalciferol [Vitamin D] 50,000 unit PO QMONTH 11/27/17 Furosemide [Lasix] 60 mg PO DAILY 11/27/17 Gabapentin [Neurontin] 300 mg PO QHS 11/27/17 Insulin Aspart [Novolog Flexpen] units SC 11/27/17 Insulin Glargine,Hum.rec.anlog [Lantus] 39 unit SC BID 11/27/17 Iron Polysaccharide Complex [Ferrex 150] 150 mg PO DAILYCM 11/27/17 Metoprolol Succinate [Toprol Xl] 25 mg PO DAILY 11/27/17 Pantoprazole Sodium [Protonix] 40 mg PO DAILY 11/27/17 Amiodarone HCl [Cordarone] 200 mg PO DAILY #30 tab 12/09/17 Aspirin E.C. [Ecotrin] 325 mg PO DAILY@0800 #30 tab 12/09/17 Iron Polysaccharide Complex [Ferrex 150] 150 mg PO DAILYCM capsule 12/09/17 Metoprolol Tartrate [Lopressor (beta stephania)] 25 mg PO BID #60 tablet 12/09/17 Following Prescrptions Were Given to Patient: Amiodarone HCl [Cordarone] 200 mg PO DAILY #30 tab Aspirin E.C. [Ecotrin] 325 mg PO DAILY@0800 #30 tab Metoprolol Tartrate [Lopressor (beta stephania)] 25 mg PO BID #60 tablet Primary Care Physician: Mat Duffy MD [Primary Care Provider] - Within 2 Weeks Please Follow Up With: Rocael Valencia MD When: Friday Disposition: Home Patient Condition:: Stable Meaningful Use Info Meaningful Use Diagnoses (Choose all that apply): None applicable Code Visit Inpatient E&M: 47672 Disch Hosp
--- NOTE | 2017-12-10 10:22 | CASEMGMT ---
[facility] RN CM this am regarding need for confirmation of tunnel cath that pt had placed on 12/08/17. Copy of OR notes, CXR, and f/u surgeon note [facility] at [facility] time. Call to Jazmin at [facility] and she states that they were able to get a copy of CXR early this am and pt was able to be run. Apologies given that they never received notes/verification, voice understanding at this time. Jazmin states no further concerns/needs at this time. SStaten RN CM
== END 2017-12-09 15:49 | disposition home health service (06) | DRG 193 ==
LOC: ED 07:33 → ICU 08:01 → PCU 12-01 07:21
PROVIDERS: Internal Medicine; Internal Medicine Nephrology; Nurse Practitioner Family; Surgery; Admitting Provider Hospitalist; Emergency Provider Emergency Medicine; Family Provider Internal Medicine; PCP Internal Medicine; Visit Provider Internal Medicine
PROC: 0JH63XZ Insertion of Tunneled Vascular Access Device into Chest Subcutaneous Tissue and Fascia, Percutaneous Approach (ICD-10-PCS; principal; 2017-12-08 16:00)
DX: J18.9 Pneumonia, unspecified organism (principal); J96.21 Acute and chronic respiratory failure with hypoxia; N17.0 Acute kidney failure with tubular necrosis; R78.81 Bacteremia; E11.22 Type 2 diabetes mellitus with diabetic chronic kidney disease; E66.01 Morbid (severe) obesity due to excess calories; I27.20 Pulmonary hypertension, unspecified; B96.1 Klebsiella pneumoniae [K. pneumoniae] as the cause of diseases classified elsewhere; N30.00 Acute cystitis without hematuria; J44.0 Chronic obstructive pulmonary disease with (acute) lower respiratory infection; E87.5 Hyperkalemia; N18.3 Chronic kidney disease, stage 3 (moderate); I48.0 Paroxysmal atrial fibrillation; Z86.73 Personal history of transient ischemic attack (TIA), and cerebral infarction without residual deficits; G47.33 Obstructive sleep apnea (adult) (pediatric); Z79.4 Long term (current) use of insulin; Z68.35 Body mass index [BMI] 35.0-35.9, adult; E55.9 Vitamin D deficiency, unspecified; Z99.81 Dependence on supplemental oxygen; D63.8 Anemia in other chronic diseases classified elsewhere; I12.9 Hypertensive chronic kidney disease with stage 1 through stage 4 chronic kidney disease, or unspecified chronic kidney disease; Z79.899 Other long term (current) drug therapy; H10.9 Unspecified conjunctivitis
CPT/HCPCS: 36415; 71045; 71046; 71250; 74176; 76000; 76604; 80048; 80076; 81001; 82784; 82962; 83605; 83615; 83735; 84132; 84165; 84443; 84484; 85025; 85027; 85610; 85730; 86226; 86256; 86334; 86704; 86707; 86850; 86900; 86920; 86922; 87040; 87077; 87086; 87088; 87186; 87340; 87449; 87804; 90937; 93005; 93306; 94002; 94003; 94640; 94762; 97035; 97110; 97116; 97162; 97165; 97530; 97535; 99285; J3010; J7030; J7040; P9016; Q9957; A4216; C1752; C8929; G0257; J2405

== ENCOUNTER 2017-12-12 12:42 | Emergency (ER) | payer MEDICARE, SELFPAY ==
[2017-12-12 12:43] VITALS: BP 125/74; PULSE 63; RESP 18; TEMP 35.8; O2SAT 95; BMI 34.9
--- NOTE | 2017-12-12 13:03 | ED.RN ---
FAMILY AND PT WERE IN THE UNDERSTANDING THEY WERE JUST COMING HERE TO GET PICKED UP BY A [facility] AND TAKEN TO [facility]. THEY DID NOT REALIZE IT WAS A ER VISIT AND SHE WOULD BE SEEN BY THE ER DOCTOR. ALSO DIDN'T WANT TO WAIT FOR THE [facility]. THEY HAD A FRIEND THAT WOULD GIVE THEM A RIDE TO [facility] SO THEY DECIDED TO LEAVE BEFORE THE DR WENT IN TO SEE THEM.
== END 2017-12-12 13:28 | disposition left against medical advice (07) ==
LOC: ED 13:25
PROVIDERS: Emergency Provider Emergency Medicine; Family Provider Internal Medicine; PCP Internal Medicine
DX: R69 Illness, unspecified (principal)

== ENCOUNTER → 2017-12-22 08:51 | Outpatient (CLI) | payer MEDICARE, SELFPAY ==
[2017-12-22 09:25] LABS: Anion Gap 10 (5-15); BUN 54 mg/dL (7-18); BUN/Creat Ratio 11.9 RATIO (10-20); Calcium,Total 8.2 mg/dL (8.5-10.1); Chloride 100 mmol/L (98-107); Creatinine, Serum 4.52 mg/dL (0.55-1.02); EST Glomerular Filtration Rate 10 mL/min (>60); Est Glom Filt Rate - Afr Amer 12 mL/min (>60); Glucose 288 mg/dL (74-106); Potassium 4.3 mmol/L (3.5-5.1); Sodium Level 140 mmol/L (136-145)
== END ==
PROVIDERS: Family Provider Internal Medicine; PCP Internal Medicine; Visit Provider Internal Medicine Nephrology
DX: N18.6 End stage renal disease (principal)
CPT/HCPCS: 36415; 80048

== ENCOUNTER → 2018-01-08 08:22 | Outpatient (CLI) | payer MEDICARE, SELFPAY ==
[2018-01-08] VITALS (7 sets, daily range): BP systolic 108–128; BP diastolic 49–81; PULSE 53–60; RESP 18; TEMP 36.3–36.9; O2SAT 99–100; BMI 33.3
== END ==
PROVIDERS: Family Provider Internal Medicine; PCP Internal Medicine; Visit Provider Internal Medicine Nephrology
DX: D64.9 Anemia, unspecified (principal)
CPT/HCPCS: 36415; 36430; 86850; 86900; 86920; 86922; J7040; P9016; A4216

== ENCOUNTER 2018-01-19 08:04 | Inpatient (IN) | payer MEDICARE, SELFPAY ==
[2018-01-19] VITALS (36 sets, daily range): BP systolic 101–171; BP diastolic 50–95; PULSE 62–84; RESP 5–31; TEMP 36.4–37.4; O2SAT 89–100; BMI 32.6; BMI 32.7; BMI 32.4
--- NOTE | 2018-01-19 08:23 | EKG12_ITS ---
Test Reason : SOB Blood Pressure : / mmHG Vent. Rate : 078 BPM Atrial Rate : 078 BPM P-R Int : 178 ms QRS Dur : 102 ms QT Int : 420 ms P-R-T Axes : 047 -32 055 degrees QTc Int : 478 ms Normal sinus rhythm Indeterminate axis Abnormal ECG Confirmed by RHIANNON MARKHAM ([id number]), editorial specialist HONORIO SHEFFIELD ([id number] on 01/22/2018 2:45:40 PM Referred By: SOLEDAD/HALLIE Confirmed By:RHIANNON MARKHAM
--- NOTE | 2018-01-19 08:23 | RAD_ITS ---
STUDY: X-RAY CHEST REASON FOR EXAM: Female, 72 years old. Dialysis catheter not functioning TECHNIQUE: Single AP portable view of the chest. COMPARISON: 12/08/2017 FINDINGS: EKG leads overlie the chest. Stable appearance of the previously noted left dialysis catheter. No kink or fracture noted. Lungs are underexpanded with superimposed interstitial edema not seen on the previous study. The borders of the pulmonary markings are shaggy and ill-defined. Persistent evidence of chronic bronchitis, stable left pleural effusion. Stable cardiomegaly. Normal mediastinum and jose f. Normal visualized pulmonary arteries. Normal visualized aortic arch and descending thoracic aorta. There are diffuse degenerative changes of the visualized thoracic spine. Normal visualized ribs, clavicles, and shoulders. There is no demonstrated abnormality of the visualized soft tissue structures of the upper abdomen. RAD/Chest 1 View (Portable) IMPRESSION: No plain film evidence of abnormality in the visualized dialysis catheter Increase in interstitial edema since the previous study, follow-up recommended to assure resolution Persistent plain film evidence of chronic bronchitis Stable cardiomegaly Electronically Signed: Delonte Tang MD at 8:58 EDT , Service support ,
--- NOTE | 2018-01-19 08:29 | ED.VISSUMM ---
- ER Visit Summary Date of Service: 01/19/18 Chief Complaint: Shortness of breath History of Present Illness: The patient is a 72 F history of insulin-dependent diabetes, CVA, COPD on 3-1/2 L of oxygen and end-stage renal disease dialysis. Patient went to dialysis this morning was short of breath and a 7 ER for evaluation. Patient currently is on BiPAP. is giving most of the history. He states that she has been short of breath since last night. They deny any fever. No nausea, vomiting or diarrhea. Physical Examination: Older female currently on BiPAP. Vital signs on 6 L she is 96% on 3 she is below 90. She is hypoxic. Temperature is pending. H EENT exam unremarkable. Neck nontender no JVD. No lymphadenopathy. Lungs labored breathing. Diminished bilaterally. No rales or rhonchi appreciated. Heart regular rhythm no murmur. Abdomen soft nontender. She is moving all 4 extremities. She has 1+ pitting edema both lower extremities. Equal symmetrical. Calves are nontender. No cords. Neurologically she is awake and alert without focal motor deficits. Test Results: A portable one view chronic changes with vascular congestion. CBC is white count 9 H&H 9.6 and 31 which is her baseline chronic anemia. Electrolytes show normal anion gap. BUN and creatinine at 37 3.1 was consistent with her dialysis. Anion gap is 6 glucose of 303. Troponin normal. EKG sinus rhythm rate is 78 no acute abnormality. Blood gas shows a pH of 7.23 with a PCO2 of 75 and a PO2 of 64 respiratory failure consistent with CO2 retention and hypoxia. Patient will be started on aerosols and Solu-Medrol. Emergency Department Course and Treatment: Older female with shortness of breath and hypoxia. Treated with aerosols. Treatment Plan: I spoke to the hospitalist and patient will be admitted to the ICU. For respiratory failure and CO2 retention and respiratory acidosis. Disposition: Admission Impression: Acute shortness of breath with hypoxia due to COPD flare and respiratory failure Respiratory acidosis with CO2 retention. Chronic anemia End-stage renal disease dialysis. History of insulin-dependent diabetes. This note was generated with [employer] software. It may contain incorrect words, spelling, and punctuation that were not noted in review of the chart prior to signing ED Disposition - Plan for ED Patient: Chief Complaint: Shortness of Breath Referrals: Mat Duffy MD [Primary Care Provider] -
[2018-01-19] MEDS: Ipratropium/Albuterol Sulfate 3 ML AMPUL.NEB INHALATION ×2 (08:33→14:51)
[2018-01-19] MEDS: Albuterol 2.5 MG/3 ML VIAL.NEB. INHALATION ×3 (08:33→14:51)
--- NOTE | 2018-01-19 08:54 | CPS ---
INCREASED FIO2 TO 40%.
[2018-01-19 08:56] LABS: Absolute Lymphocyte Count 0.44 X10^3/ul (0.83-4.51); Absolute Neutrophil Count 8.4 X10^3/uL (2.0-7.7); Basophil# 0.01 X10^3/uL; Basophil% 0.1 % (0-1); Eosinophil# 0.08 X10^3/uL; Eosinophils% 0.8 % (0-5); Hemoglobin 9.6 g/dl (12.0-15.0); Lymphocyte # 0.44 X10^3/ul (4.0); Lymphocyte % 4.7 % (19-41); Monocyte# 0.46 X10^3/uL; Monocyte% 4.9 % (0-10); Neutrophil # 8.36 X10^3/uL (2.7-7.7); Neutrophil % 88.5 % (47-70); Platelet Count 193 K/mm3 (150-450); RBC Distribution Width CV 17.1 % (11.6-14.6); RBC Distribution Width SD 61.4 fl (35.1-43.9); White Blood Count 9.4 K/mm3 (4.4-11.0)
[2018-01-19 08:57] LABS: Differential Indicated SCAN CRITERIA MET; POSITIVE COUNT NO; POSITIVE DIFFERENTIAL YES; POSITIVE MORPHOLOGY NO
[2018-01-19 09:07] LABS: Anion Gap 6 (5-15); BUN 37 mg/dL (7-18); BUN/Creat Ratio 11.7 RATIO (10-20); Calcium,Total 8.1 mg/dL (8.5-10.1); Chloride 93 mmol/L (98-107); Creatinine, Serum 3.17 mg/dL (0.55-1.02); EST Glomerular Filtration Rate 15 mL/min (>60); Est Glom Filt Rate - Afr Amer 19 mL/min (>60); Estimated Creatinine Clearance 14.86 ml/min; Glucose 303 mg/dL (74-106); Potassium 4.7 mmol/L (3.5-5.1); Sodium Level 131 mmol/L (136-145)
[2018-01-19 13:10] LABS: Allen Test POS; Base Excess 4 mmol/L (-2 to +2); Blood Gas Specimen Type ART; EPAP 11; FI02 40; IPAP 15; PO2 64 mmHG (75-100); RR 25; SITE R Radial; SO2 86 % (95-99); Time Given 1249; Total Carbon Dioxide 34 mmol/L; pCO2 75.4 mmHg (35-45); pH 7.24 (7.35-7.45)
--- NOTE | 2018-01-19 14:37 | NURSING ---
ICU ACUTE RESP FAILURE PAULA
--- NOTE | 2018-01-19 14:38 | NURSING ---
ICU 2
--- NOTE | 2018-01-19 14:41 | HP.PCM_ITS ---
History of Present Illness Date of Admission: 01/19/18 Chief Complaint: Shortness of breath The patient is a 72 year old F with past medical history of end-stage renal disease on hemodialysis, atrial fibrillation diabetes type 2, advanced COPD, chronic hypoxic respiratory failure and essential hypertension and history of cerebral bleed status post craniectomy. She presented for her hemodialysis today and was noted to be tachypneic and was therefore recommended to go to the emergency room for further evaluation. The patient was noted to be hypoxic and she was placed on BiPAP. Her chest x-ray showed pulmonary vascular congestion. When I saw her, she was alert and oriented to time place and person, she answered questions appropriately , she appeared to be respiratory distress. We are placing her in the ICU for further management. Past Medical History Past Medical History (Chronic Problems): Chronic Problems (Last Reviewed 01/01/18 @ 18:03 by Josi Hickman NP-C) Rheumatic mitral insufficiency (Chronic) Valvular heart disease (Chronic) End stage COPD (Chronic) Pulmonary hypertension (Chronic) HTN (hypertension) (Chronic) 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) S/P craniotomy (Chronic) For intracerebral hemorrhage Obesity (BMI 30.0-34.9) (Chronic) Morbid obesity (Chronic) CKD (chronic kidney disease) stage 3, GFR 30-59 ml/min (Chronic) Obstructive sleep apnea (Chronic) Untreated Type 2 diabetes mellitus (Chronic) History of cerebral hemorrhage (Chronic) Anemia (Chronic) Aortic stenosis, mild (Chronic) Mitral stenosis (Chronic) mild Stroke (Chronic) Hyperlipidemia (Chronic) Vitamin D deficiency (Chronic) Neuropathic pain (Chronic) Allergies No Known Allergies Allergy (Verified 01/01/18 12:32) Home Medications: Ambulatory Orders Medication Instructions Recorded Atorvastatin Calcium [Lipitor] 40 mg PO QHS 11/27/17 Clonidine HCl 0.1 mg PO TID 11/27/17 Ergocalciferol [Vitamin D] 50,000 unit PO QMONTH 11/27/17 Furosemide [Lasix] 60 mg PO BID 11/27/17 Gabapentin [Neurontin] 300 mg PO QHS 11/27/17 Insulin Aspart [Novolog Flexpen] See Protocol SC TIDCM 11/27/17 Iron Polysaccharide Complex 150 mg PO DAILYCM 11/27/17 [Ferrex 150] Metoprolol Succinate [Toprol Xl] 25 mg PO DAILY 11/27/17 Pantoprazole Sodium [Protonix] 40 mg PO DAILY 11/27/17 Amiodarone HCl [Cordarone] 200 mg PO DAILY 01/19/18 Aspirin E.C. [Ecotrin] 325 mg PO DAILY@0800 01/19/18 Insulin Glargine [Lantus (BKC)] 39 units SC BID 01/19/18 Surgical History: cholecystectomy, rotator cuff repair, - Smoking Status: Former smoker - *Family History Maternal History Items: Cancer, Diabetes, Renal Disease Paternal History Items: Diabetes, Heart Disease, Renal Disease Review of Systems Comment: All Systems were reviewed with pertinent positives mentioned in the HPI above. VTE Information - Inpt Only VTE Present on Admission: No VTE Mechan Device Prophylaxis: SCD's VTE Pharm Prophylaxis ordered?: Yes - Physical Exam General: Alert, Oriented x3 HEENT: Atraumatic Oral: Moist Mucosa Neck: Supple, No JVD Lungs: Clear to auscultation Cardiovascular: Regular rate, Normal S1, Normal S2 Abdomen: Bowel Sounds Present, Soft, Non Tender, Non-Distended Extremities: No edema Neurological: Cranial nerves II-XII grossly intact, Deep Tendon Reflexes 2+/4 and Symmetrical, Neuro grossly intact, Motor Exam 5/5 strength throughout Psych/Mental Status: Normal Affect Vital Signs Temp Pulse Resp BP Pulse Ox 97.5 F L 63 19 H 122/59 H 94 01/19/18 08:04 01/19/18 14:34 01/19/18 14:34 01/19/18 14:34 01/19/18 14:34 Oxygen Flow Rate (L/min) 6 Oxygen Delivery Method Bi-pap Weight: 89.1 kg Body Mass Index (BMI) 32.6 Finger Stick Blood Glucose 500 Laboratory Tests Past 24 Hrs 01/19/18 01/19/18 01/19/18 08:45 08:45 12:56 WBC 9.4 RBC 3.10 L Hgb 9.6 L Hct 31.0 L MCV 100.0 H MCH 31.0 MCHC 31.0 L RDW 17.1 H RDW Differential 61.4 H Plt Count 193 MPV 9.0 Immature Gran % (Auto) 1.000 H Neut % (Auto) 88.5 H Lymph % (Auto) 4.7 L [place] % (Auto) 4.9 Eos % (Auto) 0.8 Baso % (Auto) 0.1 Absolute Neuts (auto) 8.4 H Absolute Lymphs (auto) 0.44 L Total Counted Not Reportable Differential Comment COMMENT Specimen Type ART Sample Site R Radial pH 7.24 L Bicarbonate Actual 32.0 H POC Total CO2 34 Base Excess 4 H O2 Saturation 86 L O2 % 40 ABG pCO2 75.4 H* ABG pO2 64 L Johnny Test POS Respiration Rate 25 O2 Delivery Device Bi / C PAP EPAP 11 IPAP 15 Blood Gas Notified Whom ED Blood Gas Notified Time 1249 Sodium 131 L Potassium 4.7 Chloride 93 L Carbon Dioxide 32.0 Anion Gap 6 BUN 37 H Creatinine 3.17 H Estim Creat Clear Calc 14.86 Est GFR (MDRD) Af Amer 19 L Est GFR (MDRD) Non-Af 15 L BUN/Creatinine Ratio 11.7 Glucose 303 H Calcium 8.1 L Troponin I < 0.02 Assessment/Plan 1. Acute respiratory failure superimposed on chronic respiratory failure with hypoxia; most likely due to acute pulmonary edema and acute COPD exacerbation, she is currently requiring BiPAP, we will continue and repeat ABGs in 30 minutes , pulmonary medicine will be consulted. 2. Acute COPD exacerbation; she will be placed on IV steroids and bronchodilator therapy , I do not feel she needs antibiotic therapy at this time. 3. End-stage renal disease on hemodialysis, her dialysis was canceled this morning and she was sent to the emergency room. Supervisor Weaving has been consulted for urgent hemodialysis today. 4. atrial Fibrillation, chronic ; the patient is on Amiodarone, she is not on long-term anticoagulation due to history of cerebral bleed status post craniectomy. 5. Diabetes mellitus type 2; we will continue on her Lantus, we will place her on regular insulin sliding scale for glycemic spikes. 6. DVT Prophylaxis with subcutaneous heparin and SCDs. Code Visit Inpatient E&M: 96499 Init Hosp L3
[2018-01-19] MEDS: MethylPREDNISolone 125 MG/2 ML Vial IV (15:09)
--- NOTE | 2018-01-19 16:04 | CON.PCM_ITS ---
Problem List (1) Rheumatic mitral insufficiency Status: Chronic (2) Paroxysmal A-fib Status: Acute (3) Valvular heart disease Status: Chronic (4) End stage COPD Status: Chronic (5) Pulmonary hypertension Status: Chronic (6) JORGE (acute kidney injury) Status: Acute (7) Acute on chronic respiratory failure Status: Acute (8) HTN (hypertension) Status: Chronic Qualifiers: Hypertension type: essential hypertension (9) CREST variant of scleroderma Status: Chronic (10) Peripheral arterial occlusive disease Status: Chronic (11) S/P craniotomy Status: Chronic Comment: For intracerebral hemorrhage (12) Obesity (BMI 30.0-34.9) Status: Chronic (13) Morbid obesity Status: Chronic (14) CKD (chronic kidney disease) stage 3, GFR 30-59 ml/min Status: Chronic (15) Obstructive sleep apnea Status: Chronic Comment: Untreated (16) Type 2 diabetes mellitus Status: Chronic Qualifiers: (17) History of cerebral hemorrhage Status: Chronic (18) Anemia Status: Chronic Qualifiers: (19) Aortic stenosis, mild Status: Chronic (20) Mitral stenosis Status: Chronic Qualifiers: Cardiac valve disease etiology: etiology unspecified Qualified Code(s): 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 (21) Stroke Status: Chronic Qualifiers: CVA mechanism: unspecified Qualified Code(s): I63.9 - Cerebral infarction, unspecified (22) Hyperlipidemia Status: Chronic Qualifiers: (23) Vitamin D deficiency Status: Chronic (24) Neuropathic pain Status: Chronic Reason for Consult Date of Consultation: 01/19/18 Reason for Consultation: Acute on chronic respiratory failure History of Present Illness: The patient is a 72 year old F, with past medical history listed below and well- known to me from the outpatient practice, who presented to [facility] on 01/19/2018 secondary to progressive shortness of breath over the last 24 hours. Patient is on 3-1/2 L of oxygen at baseline and has been receiving hemodialysis Friday, Friday and Friday. Patient went to the dialysis center this morning and was too short of breath to be initiated secondary to a clotted access. Patient denied any prodromal symptoms such as fever, chills, nausea, vomiting, diarrhea, rash, sinus congestion or productive cough. While in the ER, patient was placed on BiPAP therapy and was noted to be hypoxic. Laboratory workup did show a relative anemia of 9.6 with an elevated creatinine, but close to baseline. Glucose was elevated at 303. Blood gas on BiPAP therapy showed a pH of 7.23, PCO2 75, PO2 64. Patient was initiated on azithromycin, aerosols and Solu-Medrol. Patient was then transferred to the intensive care unit. After arrival to the intensive care unit, patient was increased to 18/11 on her BiPAP. History was confirmed with the . No additional information was available. Patient reportedly has been doing relatively well from her perspective. Patient reportedly has been compliant with supplemental oxygen therapy. Patient does open her eyes to interact, but is not able to provide a full review of systems at this time. Past Medical History Past Medical History (Chronic Problems): Chronic Problems (Last Reviewed 01/01/18 @ 18:03 by Josi Hickman NP-C) Rheumatic mitral insufficiency (Chronic) Valvular heart disease (Chronic) End stage COPD (Chronic) Pulmonary hypertension (Chronic) HTN (hypertension) (Chronic) 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) S/P craniotomy (Chronic) For intracerebral hemorrhage Obesity (BMI 30.0-34.9) (Chronic) Morbid obesity (Chronic) CKD (chronic kidney disease) stage 3, GFR 30-59 ml/min (Chronic) Obstructive sleep apnea (Chronic) Untreated Type 2 diabetes mellitus (Chronic) History of cerebral hemorrhage (Chronic) Anemia (Chronic) Aortic stenosis, mild (Chronic) Mitral stenosis (Chronic) mild Stroke (Chronic) Hyperlipidemia (Chronic) Vitamin D deficiency (Chronic) Neuropathic pain (Chronic) Allergies No Known Allergies Allergy (Verified 01/01/18 12:32) Home Medications: Ambulatory Orders Medication Instructions Recorded Atorvastatin Calcium [Lipitor] 40 mg PO QHS 11/27/17 Clonidine HCl 0.1 mg PO TID 11/27/17 Ergocalciferol [Vitamin D] 50,000 unit PO QMONTH 11/27/17 Furosemide [Lasix] 60 mg PO BID 11/27/17 Gabapentin [Neurontin] 300 mg PO QHS 11/27/17 Insulin Aspart [Novolog Flexpen] See Protocol SC TIDCM 11/27/17 Iron Polysaccharide Complex 150 mg PO DAILYCM 11/27/17 [Ferrex 150] Metoprolol Succinate [Toprol Xl] 25 mg PO DAILY 11/27/17 Pantoprazole Sodium [Protonix] 40 mg PO DAILY 11/27/17 Amiodarone HCl [Cordarone] 200 mg PO DAILY 01/19/18 Aspirin E.C. [Ecotrin] 325 mg PO DAILY@0800 01/19/18 Insulin Glargine [Lantus (BKC)] 39 units SC BID 01/19/18 Surgical History: cholecystectomy, rotator cuff repair, - Smoking Status: Former smoker Tobacco Use: Secondhand - *Family History Maternal History Items: Cancer, Diabetes, Renal Disease Paternal History Items: Diabetes, Heart Disease, Renal Disease Review of Systems Unable to obtain accurate/complete ROS d/t: See HPI Objective: Chest x-ray was personally reviewed and shows increased infiltrates, right greater than left. Supportive devices appear in appropriate position. - Physical Exam General: - - RASS -1. Obese. Appears older than stated age. Fair synchrony with BiPAP HEENT: Atraumatic, PERRLA, EOMI, Normocephalic, - - No scleral icterus or injection noted. Oral: Moist Mucosa, No Gingival or Mucosal Lesions/ Ulcerations Neck: Supple, No Nodes, Trachea Midline, JVD, Right Lungs: No rhonchi, No wheeze, Diminished, Rales Cardiovascular: Regular rate, Regular Rhythm, Normal S1, Normal S2, Murmur - Grade 2 out of 6 systolic ejection murmur at the right sternal border, No rub noted, No Gallop Abdomen: Bowel Sounds Present, Soft, Non Tender, Non-Distended, Obese Extremities: No clubbing, No cyanosis, Edema - Plus lower extremity Skin: - - Well-healed indurated areas in the posterior aspect of both heels Musculoskeletal: No Tenderness to Palpation of Joints or Extremities Lymphatic: No Cervical, Supraclavicular, or Inguinal Adenopathy Neurological: Cranial nerves II-XII grossly intact, Neuro grossly intact, Motor Exam 5/5 strength throughout Psych/Mental Status: Alert and oriented to time, place, person, mood and affect Vital Signs Temp Pulse Resp BP Pulse Ox 36.4 C L 64 23 H 122/59 H 95 01/19/18 08:04 01/19/18 14:58 01/19/18 14:58 01/19/18 14:41 01/19/18 14:41 Oxygen Delivery Method Bi-pap Laboratory Tests 01/19/18 01/19/18 01/19/18 08:45 08:45 12:56 WBC 9.4 RBC 3.10 L Hgb 9.6 L Hct 31.0 L MCV 100.0 H MCH 31.0 MCHC 31.0 L RDW 17.1 H RDW Differential 61.4 H Plt Count 193 MPV 9.0 Immature Gran % (Auto) 1.000 H Neut % (Auto) 88.5 H Lymph % (Auto) 4.7 L [place] % (Auto) 4.9 Eos % (Auto) 0.8 Baso % (Auto) 0.1 Absolute Neuts (auto) 8.4 H Absolute Lymphs (auto) 0.44 L Total Counted Not Reportable Differential Comment COMMENT Specimen Type ART Sample Site R Radial pH 7.24 L Bicarbonate Actual 32.0 H POC Total CO2 34 Base Excess 4 H O2 Saturation 86 L O2 % 40 ABG pCO2 75.4 H* ABG pO2 64 L Johnny Test POS Respiration Rate 25 O2 Delivery Device Bi / C PAP EPAP 11 IPAP 15 Blood Gas Notified Whom ED Blood Gas Notified Time 1249 Sodium 131 L Potassium 4.7 Chloride 93 L Carbon Dioxide 32.0 Anion Gap 6 BUN 37 H Creatinine 3.17 H Estim Creat Clear Calc 14.86 Est GFR (MDRD) Af Amer 19 L Est GFR (MDRD) Non-Af 15 L BUN/Creatinine Ratio 11.7 Glucose 303 H Calcium 8.1 L Troponin I < 0.02 Clinical Impression(s) from Imaging Studies Chest X-Ray 01/19/18 08:23 IMPRESSION: No plain film evidence of abnormality in the visualized dialysis catheter Increase in interstitial edema since the previous study, follow-up recommended to assure resolution Persistent plain film evidence of chronic bronchitis Stable cardiomegaly Electronically Signed: Delonte Tang MD at 8:58 EDT , Service support , Assessment/Plan RECOMMENDATIONS: 1. Hemodialysis as soon as possible 2. Continue bronchodilators, steroids and antibiotics for now 3. Increase BiPAP to 18/11 transiently until hemodialysis 4. Repeat ABG in 1 hour 5. Continue sliding scale insulin IMPRESSIONS: 1. Acute on chronic combined respiratory failure/end-stage COPD/pulmonary hypertension secondary to scleroderma Patient is not giving any prodromal symptoms consistent with a COPD exacerbation. Patient did miss hemodialysis this morning and does have increased infiltrates on chest x-ray. Treatment with antibiotics, steroids and bronchodilators would be appropriate for the first 24 hours. Will obtain hemodialysis overnight. Patient is improving by tomorrow after fluid removal, likely okay to discontinue steroids and antibiotics. Wean oxygen as tolerated. Will increase BiPAP to help with CO2 removal transiently. 2. History of new onset atrial fibrillation with RVR Patient is in normal sinus rhythm at this time. Patient would likely benefit from right heart catheterization once euvolemic. 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 She follows with Dr. Carroll as an outpatient 3. Hyperkalemia/CKD/morbid obesity/peripheral artery occlusive disease/ crest variant of scleroderma/HTN/DM/INES/history of cerebral hemorrhage/anemia/ stroke/HLD/neuropathic pain/vitamin D deficiency Complicates care, management, recovery, and prognosis. Renal is following. TIME: 32 minutes critical care time spent addressing patient's acute on chronic combined respiratory failure, end-stage renal disease, scleroderma, review of all data and collaboration with care team
[2018-01-19] MEDS: CHLORHEXIDINE GLUC 2% CLOTH 1 EACH TOWELETTE TOPICAL (16:30)
[2018-01-19 16:36] LABS: Bedside Glucose 238 mg/dL (70-110)
[2018-01-19 17:20] LABS: Base Excess 5 mmol/L (-2 to +2); Bicarbonate 31.5 mmol/L (22-26); Blood Gas Specimen Type ART; EPAP 11; FI02 40; IPAP 18; PO2 66 mmHG (75-100); RR 8; SITE R Radial; SO2 89 % (95-99); Time Given 1708; Total Carbon Dioxide 34 mmol/L; pH 7.26 (7.35-7.45)
[2018-01-19] MEDS: Furosemide 40 MG/4 ML Vial IV (19:25)
--- NOTE | 2018-01-19 20:21 | NURSING ---
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
--- NOTE | 2018-01-19 21:05 | CPS ---
FiO2 was reduced to 35%
[2018-01-19 21:13] LABS: M R Staph aureus DNA By PCR Negative (Negative); Probe Check PASS; Specimen Processing Control PASS
--- NOTE | 2018-01-19 23:36 | CPS ---
bipap was interfering with pts Dialysis tx. pt placed on 3.5 Lpm Oxygen
[2018-01-20] VITALS (30 sets, daily range): BP systolic 119–150; BP diastolic 53–78; PULSE 63–83; RESP 5–29; TEMP 36.6–37.6; O2SAT 91–99
[2018-01-20] MEDS: Heparin 10,000 UNITS/10 ML Vial IV (01:30)
--- NOTE | 2018-01-20 01:54 | DIALYSIS ---
HD x 4 hours complete. Tolerated tx well. UF of 2400ml. Ran on 2k bath. Used left chest wall catheter. Removed cathflo activase from both ports prior to tx. Arterial port was still sluggish. Lines were reversed during tx. BFR 300. Dr. Jones is aware. Report was given to ELI Vazquez.
[2018-01-20] MEDS: Heparin Injection (Vial) 5,000 UNIT/ML VIAL 5000 UNIT SC ×3 (02:03→22:46)
[2018-01-20] MEDS: Gabapentin 300 MG Capsule PO ×2 (02:24→22:46)
[2018-01-20] MEDS: Atorvastatin Calcium 40 MG Tablet PO ×2 (02:28→22:50)
[2018-01-20 02:30] LABS: Bedside Glucose 359 mg/dL (70-110)
--- NOTE | 2018-01-20 04:31 | CPS ---
placed pt back on previous bipap settings post dialysis
[2018-01-20 06:10] LABS: Absolute Lymphocyte Count 0.22 X10^3/ul (0.83-4.51); Absolute Neutrophil Count 5.2 X10^3/uL (2.0-7.7); Hematocrit 30.9 % (37-47); Hemoglobin 9.7 g/dl (12.0-15.0); Lymphocyte # 0.22 X10^3/ul (4.0); Mean Corp Hgb Conc 31.4 g/gl (32-36); Mean Corpuscular Volume 98.7 fL (81-99); Mean Platelet Vol. 10.2 fl (6.2-12.0); Monocyte# 0.05 X10^3/uL; Monocyte% 0.9 % (0-10); Neutrophil # 5.15 X10^3/uL (2.7-7.7); Neutrophil % 94.4 % (47-70); Platelet Count 188 K/mm3 (150-450); RBC Distribution Width SD 58.6 fl (35.1-43.9); Red Blood Count 3.13 M/mm3 (4.2-5.4); White Blood Count 5.5 K/mm3 (4.4-11.0)
[2018-01-20 06:11] LABS: Differential Indicated SCAN CRITERIA MET; POSITIVE COUNT NO; POSITIVE DIFFERENTIAL YES; POSITIVE MORPHOLOGY NO
[2018-01-20 06:38] LABS: Differential Comment SCANNED
[2018-01-20 06:44] LABS: Anion Gap 6 (5-15); BUN 25 mg/dL (7-18); BUN/Creat Ratio 11.5 RATIO (10-20); Calcium,Total 8.7 mg/dL (8.5-10.1); Chloride 96 mmol/L (98-107); Creatinine, Serum 2.17 mg/dL (0.55-1.02); EST Glomerular Filtration Rate 24 mL/min (>60); Est Glom Filt Rate - Afr Amer 29 mL/min (>60); Estimated Creatinine Clearance 21.71 ml/min; Glucose 343 mg/dL (74-106); Potassium 4.9 mmol/L (3.5-5.1); Sodium Level 134 mmol/L (136-145)
--- NOTE | 2018-01-20 06:51 | PN_ITS ---
Subjective: Patient did well overnight. Patient did receive hemodialysis last night with significant improvement in respiratory status. Patient has been on home BiPAP settings overnight without difficulty. Patient has remained hemodynamically stable. General: Alert, Oriented x3, Cooperative, No apparent distress, - - Appears older than stated age. Obese. HEENT: Atraumatic, PERRLA, EOMI, Normocephalic, - - No scleral icterus or injection noted. Oral: Moist Mucosa, No Gingival or Mucosal Lesions/ Ulcerations Neck: Supple, No JVD, No Nodes, Trachea Midline Lungs: No rhonchi, No wheeze, No rales, Diminished, - - Symmetric expansion. No dullness to percussion. Cardiovascular: Regular rate, Regular Rhythm, Normal S1, Normal S2, No murmurs, No rub noted, No Gallop Abdomen: Bowel Sounds Present, Soft, Non Tender, Non-Distended, Obese Extremities: No clubbing, No cyanosis, Capillary Refill Less than 3 Seconds, Edema Skin: - - No significant change compared to previous Musculoskeletal: No Tenderness to Palpation of Joints or Extremities Lymphatic: No Cervical, Supraclavicular, or Inguinal Adenopathy Neurological: Cranial nerves II-XII grossly intact, Neuro grossly intact, Motor Exam 5/5 strength throughout Psych/Mental Status: Alert and oriented to time, place, person, mood and affect Vital Signs Temp Pulse Resp BP Pulse Ox 36.8 C 68 24 H 130/57 H 95 01/20/18 01:30 01/20/18 04:20 01/20/18 04:20 01/20/18 04:00 01/20/18 04:20 Oxygen Flow Rate (L/min) 3 Oxygen Delivery Method Bi-pap Weight: 86.1 kg Body Mass Index (BMI) 32.4 Intake and Output for Last 24 Hours 01/18/18 01/19/18 01/20/18 23:59 23:59 23:59 Intake Total 250 / 250 300 / 300 Output Total 2750 / 2750 Balance 250 / 250 -2450 / -2450 Labs (Last 48 Hours) 01/19/18 01/19/18 01/19/18 16:30 17:09 18:15 WBC RBC Hgb Hct MCV MCH MCHC RDW RDW Differential Plt Count MPV Immature Gran % (Auto) Neut % (Auto) Lymph % (Auto) [place] % (Auto) Eos % (Auto) Baso % (Auto) Absolute Neuts (auto) Absolute Lymphs (auto) Total Counted Differential Comment Specimen Type ART Sample Site R Radial pH 7.26 L Bicarbonate Actual 31.5 H POC Total CO2 34 Base Excess 5 H O2 Saturation 89 L O2 % 40 ABG pCO2 70.0 H* ABG pO2 66 L Johnny Test NA Respiration Rate 8 O2 Delivery Device Bi / C PAP EPAP 11 IPAP 18 Blood Gas Notified Whom ICU MD Blood Gas Notified Time 1708 Sodium Potassium Chloride Carbon Dioxide Anion Gap BUN Creatinine Estim Creat Clear Calc Est GFR (MDRD) Af Amer Est GFR (MDRD) Non-Af BUN/Creatinine Ratio Glucose Calcium Hep Bs Antigen Hep Bs Ag Confirmation Hep Bs Antibody MRSA (PCR) Negative POC Glucose 238 H 01/20/18 01/20/18 01/20/18 02:21 05:10 05:10 WBC 5.5 RBC 3.13 L Hgb 9.7 L Hct 30.9 L MCV 98.7 MCH 31.0 MCHC 31.4 L RDW 17.0 H RDW Differential 58.6 H Plt Count 188 MPV 10.2 Immature Gran % (Auto) 0.700 Neut % (Auto) 94.4 H Lymph % (Auto) 4.0 L [place] % (Auto) 0.9 Eos % (Auto) 0.0 Baso % (Auto) 0.0 Absolute Neuts (auto) 5.2 Absolute Lymphs (auto) 0.22 L Total Counted Not Reportable Differential Comment SCANNED Specimen Type Sample Site pH Bicarbonate Actual POC Total CO2 Base Excess O2 Saturation O2 % ABG pCO2 ABG pO2 Johnny Test Respiration Rate O2 Delivery Device EPAP IPAP Blood Gas Notified Whom Blood Gas Notified Time Sodium Cancelled Potassium Cancelled Chloride Cancelled Carbon Dioxide Cancelled Anion Gap Cancelled BUN Cancelled Creatinine Cancelled Estim Creat Clear Calc Cancelled Est GFR (MDRD) Af Amer Cancelled Est GFR (MDRD) Non-Af Cancelled BUN/Creatinine Ratio Cancelled Glucose Cancelled Calcium Cancelled Hep Bs Antigen Hep Bs Ag Confirmation Hep Bs Antibody MRSA (PCR) POC Glucose 359 H 01/20/18 01/20/18 01/20/18 05:10 06:20 06:20 WBC RBC Hgb Hct MCV MCH MCHC RDW RDW Differential Plt Count MPV Immature Gran % (Auto) Neut % (Auto) Lymph % (Auto) [place] % (Auto) Eos % (Auto) Baso % (Auto) Absolute Neuts (auto) Absolute Lymphs (auto) Total Counted Differential Comment Specimen Type Sample Site pH Bicarbonate Actual POC Total CO2 Base Excess O2 Saturation O2 % ABG pCO2 ABG pO2 Johnny Test Respiration Rate O2 Delivery Device EPAP IPAP Blood Gas Notified Whom Blood Gas Notified Time Sodium 134 L Potassium 4.9 Chloride 96 L Carbon Dioxide 32.0 Anion Gap 6 BUN 25 H Creatinine 2.17 H Estim Creat Clear Calc 21.71 Est GFR (MDRD) Af Amer 29 L Est GFR (MDRD) Non-Af 24 L BUN/Creatinine Ratio 11.5 Glucose 343 H Calcium 8.7 Hep Bs Antigen Cancelled Hep Bs Ag Confirmation Cancelled Hep Bs Antibody Pending MRSA (PCR) POC Glucose Microbiology 01/19/18 15:17 Mucosa - Nose Influenza Types A,B Direct FA (BRYCE) - Final Clinical Impression(s) from Imaging Studies Chest X-Ray 01/19/18 08:23 IMPRESSION: No plain film evidence of abnormality in the visualized dialysis catheter Increase in interstitial edema since the previous study, follow-up recommended to assure resolution Persistent plain film evidence of chronic bronchitis Stable cardiomegaly Electronically Signed: Delonte Tang MD at 8:58 EDT , Service support , Medical Necessity - Tobacco Use Smoking Status: Former smoker Tobacco Use: Secondhand Assessment/Plan RECOMMENDATIONS: 1. Resume hemodialysis per nephrology 2. Continue bronchodilators, but okay to discontinue steroids and antibiotics 3. Transition back to baseline BiPAP 20/08 4. Continue basal insulin and sliding scale 5. Possibly transfer from the intensive care unit later today IMPRESSIONS: 1. Acute on chronic combined respiratory failure/end-stage COPD/pulmonary hypertension secondary to scleroderma Patient is not giving any prodromal symptoms consistent with a COPD exacerbation. Patient did miss hemodialysis this morning and does have increased infiltrates on chest x-ray. Patient treated with hemodialysis with significant improvement in overall condition. Will transition back to baseline diuretic therapy. Discontinue antibiotics and steroids as pneumonia would likely not get better this quickly. Transition back to baseline INES therapy. Wean oxygen as tolerated. Probable transfer out of the intensive care unit later today if continues to improve. 2. History of new onset atrial fibrillation with RVR Patient is in normal sinus rhythm at this time. Patient would likely benefit from right heart catheterization once euvolemic. 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 She follows with Dr. Carroll as an outpatient 3. Hyperkalemia/CKD/morbid obesity/peripheral artery occlusive disease/ crest variant of scleroderma/HTN/DM/INES/history of cerebral hemorrhage/anemia/ stroke/HLD/neuropathic pain/vitamin D deficiency Complicates care, management, recovery, and prognosis. Renal is following. Code Visit Inpatient E&M: 89929 Subs Hosp L3
[2018-01-20] MEDS: CHLORHEXIDINE GLUC 2% CLOTH 1 EACH TOWELETTE TOPICAL (07:10)
[2018-01-20] MEDS: cloNIDine HCl 0.1 MG Tablet PO ×3 (07:10→22:46)
[2018-01-20] MEDS: Furosemide 20 MG Tablet 60 MG PO ×2 (08:22→16:31)
[2018-01-20] MEDS: Pantoprazole Sodium 40 MG Tablet PO (08:28)
[2018-01-20] MEDS: Amiodarone 200 MG Tablet PO (08:28)
[2018-01-20] MEDS: Aspirin E.C. 325 MG Tablet PO (08:30)
[2018-01-20] MEDS: Metoprolol(XL)Succ 25 MG Tablet PO (08:36)
--- NOTE | 2018-01-20 08:59 | PN_ITS ---
Subjective: Chief complaint: Follow-up after admission for acute on chronic hypoxic and hypercarbic respiratory failure due to acute pulmonary edema. Patient seen and examined. No acute events overnight. She received hemodialysis last night and 2400 cc taken out. Today, she is feeling much better, breathing is improved. She has been maintaining her pulse ox at 2.5 L of oxygen which is her baseline at home. Denied chest pain, palpitation, dizziness or lightheadedness. She reported mild cough without sputum production. Overnight, she tolerated BiPAP with home settings without difficulties. Her vital signs are stable. - Physical Exam General: Alert, Oriented x3, Cooperative, - - Minimal shortness of breath. HEENT: Atraumatic, PERRLA, EOMI Oral: Moist Mucosa, No Gingival or Mucosal Lesions/ Ulcerations Neck: Supple, No JVD, Negative Carotid Bruits, Trachea Midline, Thyroid Normal Size and Texture Lungs: Clear to auscultation, No rhonchi, No wheeze, No rales, Diminished Cardiovascular: Regular rate, Regular Rhythm, Normal S1, Normal S2, PMI Normal Abdomen: Bowel Sounds Present, Soft, Non Tender, Non-Distended, No Hepato- splenomegaly, Obese, - - Umbilical hernia. Extremities: No clubbing, No cyanosis, Edema - Trace edema. Skin: No rashes, No breakdown Lymphatic: No Cervical, Supraclavicular, or Inguinal Adenopathy Neurological: Cranial nerves II-XII grossly intact, Motor Exam 5/5 strength throughout Psych/Mental Status: Normal Affect, Appropriate, Alert and oriented to time, place, person, mood and affect Vital Signs Temp Pulse Resp BP Pulse Ox 97.9 F 69 22 H 120/57 L 93 01/20/18 07:42 01/20/18 08:36 01/20/18 07:42 01/20/18 08:36 01/20/18 07:42 Oxygen Flow Rate (L/min) 3 Oxygen Delivery Method Bi-pap Weight: 189 lb 13.088 oz Body Mass Index (BMI) 32.4 Intake and Output for Last 24 Hours 01/18/18 01/19/18 01/20/18 23:59 23:59 23:59 Intake Total 250 / 250 568 / 568 Output Total 2800 / 2800 Balance 250 / 250 -2232 / -2232 Microbiology Past 72 Hours 01/19/18 15:17 Influenza Types A,B Direct FA (BRYCE) - Final Mucosa - Nose Laboratory Tests Past 24 Hrs 01/19/18 01/19/18 01/20/18 17:09 18:15 05:10 WBC 5.5 RBC 3.13 L Hgb 9.7 L Hct 30.9 L MCV 98.7 MCH 31.0 MCHC 31.4 L RDW 17.0 H RDW Differential 58.6 H Plt Count 188 MPV 10.2 Immature Gran % (Auto) 0.700 Neut % (Auto) 94.4 H Lymph % (Auto) 4.0 L [place] % (Auto) 0.9 Eos % (Auto) 0.0 Baso % (Auto) 0.0 Absolute Neuts (auto) 5.2 Absolute Lymphs (auto) 0.22 L Total Counted Not Reportable Differential Comment SCANNED Specimen Type ART Sample Site R Radial pH 7.26 L Bicarbonate Actual 31.5 H POC Total CO2 34 Base Excess 5 H O2 Saturation 89 L O2 % 40 ABG pCO2 70.0 H* ABG pO2 66 L Johnny Test NA Respiration Rate 8 O2 Delivery Device Bi / C PAP EPAP 11 IPAP 18 Blood Gas Notified Whom ICU Blood Gas Notified Time 1708 Sodium Potassium Chloride Carbon Dioxide Anion Gap BUN Creatinine Estim Creat Clear Calc Est GFR (MDRD) Af Amer Est GFR (MDRD) Non-Af BUN/Creatinine Ratio Glucose Calcium Hep Bs Antigen Hep Bs Ag Confirmation Hep Bs Antibody MRSA (PCR) Negative 01/20/18 01/20/18 01/20/18 05:10 05:10 06:20 WBC RBC Hgb Hct MCV MCH MCHC RDW RDW Differential Plt Count MPV Immature Gran % (Auto) Neut % (Auto) Lymph % (Auto) [place] % (Auto) Eos % (Auto) Baso % (Auto) Absolute Neuts (auto) Absolute Lymphs (auto) Total Counted Differential Comment Specimen Type Sample Site pH Bicarbonate Actual POC Total CO2 Base Excess O2 Saturation O2 % ABG pCO2 ABG pO2 Johnny Test Respiration Rate O2 Delivery Device EPAP IPAP Blood Gas Notified Whom Blood Gas Notified Time Sodium Cancelled 134 L Potassium Cancelled 4.9 Chloride Cancelled 96 L Carbon Dioxide Cancelled 32.0 Anion Gap Cancelled 6 BUN Cancelled 25 H Creatinine Cancelled 2.17 H Estim Creat Clear Calc Cancelled 21.71 Est GFR (MDRD) Af Amer Cancelled 29 L Est GFR (MDRD) Non-Af Cancelled 24 L BUN/Creatinine Ratio Cancelled 11.5 Glucose Cancelled 343 H Calcium Cancelled 8.7 Hep Bs Antigen Cancelled Hep Bs Ag Confirmation Cancelled Hep Bs Antibody MRSA (PCR) 01/20/18 06:20 WBC RBC Hgb Hct MCV MCH MCHC RDW RDW Differential Plt Count MPV Immature Gran % (Auto) Neut % (Auto) Lymph % (Auto) [place] % (Auto) Eos % (Auto) Baso % (Auto) Absolute Neuts (auto) Absolute Lymphs (auto) Total Counted Differential Comment Specimen Type Sample Site pH Bicarbonate Actual POC Total CO2 Base Excess O2 Saturation O2 % ABG pCO2 ABG pO2 Johnny Test Respiration Rate O2 Delivery Device EPAP IPAP Blood Gas Notified Whom Blood Gas Notified Time Sodium Potassium Chloride Carbon Dioxide Anion Gap BUN Creatinine Estim Creat Clear Calc Est GFR (MDRD) Af Amer Est GFR (MDRD) Non-Af BUN/Creatinine Ratio Glucose Calcium Hep Bs Antigen Hep Bs Ag Confirmation Hep Bs Antibody Pending MRSA (PCR) POC Glucose 01/20/18 01/19/18 02:21 16:30 POC Glucose 359 H 238 H Clinical Impression(s) from Imaging Studies Chest X-Ray 01/19/18 08:23 IMPRESSION: No plain film evidence of abnormality in the visualized dialysis catheter Increase in interstitial edema since the previous study, follow-up recommended to assure resolution Persistent plain film evidence of chronic bronchitis Stable cardiomegaly Electronically Signed: Delonte Tang MD at 8:58 EDT , Service support , Medical Necessity - Tobacco Use Smoking Status: Former smoker Tobacco Use: Secondhand Assessment/Plan This is a 72 years old female patient presented to the emergency room because of shortness of breath at hemodialysis and she was sent to the ER for evaluation , found to have acute pulmonary edema and she was admitted with acute on chronic hypoxic and hypercapnic respiratory failure. #1 acute pulmonary edema: Patient missed hemodialysis yesterday because she became very short of breath once dialysis started. Chest x-ray revealed bilateral interstitial edema. Patient received hemodialysis yesterday and today , she is feeling much better. She has been maintaining her O2 saturation at 3.5 l which is her baseline at home. EKG revealed normal sinus rhythm, left axis deviation, no acute ischemic changes. Hemodynamically stable. Plan: Transfer to PCU. #2 acute on chronic hypoxic and hypercapnic respiratory failure: Secondary to above. ABG revealed pH of 7.26, PCO2 70 and PO2 of 66. At home, she has been oxygen at 3.5 L. Today, she is feeling much better and maintaining her pulse ox on 3 L. Plan as above. #3 ESRD on hemodialysis: Patient received hemodialysis last night. Nephrology consulted, plan to continue with dialysis according to her previous schedule. #4 hypertension: Blood pressure stable, continue Catapres, Lasix and metoprolol. #5 type 2 diabetes mellitus: ADA diet, Accu-Cheks, insulin sliding scale, continue Levemir twice daily. #6 paroxysmal A. fib: Rate has been stable, continue amiodarone and metoprolol for rate control. She is not on anticoagulation. #7 COPD: Continue albuterol as needed, start DuoNeb every 6 hours. #8 DVT prophylaxis: Subcu heparin. Other chronic medical problems: #1 pulmonary hypertension. #2 scleroderma. #3 peripheral vascular disease. #4 history of cerebral hemorrhage, status post craniotomy. #5 chronic anemia. #6 hyperlipidemia. This note was generated with [employer] dictation software. It may contain incorrect words, spelling, and punctuation that were not noted in checking the note before signing. Code Visit Inpatient E&M: 17001 Subs Hosp L2
--- NOTE | 2018-01-20 09:43 | PCM.CONS.R ---
Problem List (1) ESRD (end stage renal disease) on dialysis Status: Acute Consultation - Renal PCP/ Referring MD: Requesting physician: [] Primary care physician: Mat Duffy - History of Present Illness History of Present Illness: The patient is a 72 year old F PMH of ESRD on HD MWF, Afib, DM, COPD, HTN, chronic respiratory failure , hemorrhagic CVA . Patient was sent from HD unit to [place] ED for SOB and tachypnea. chest xray showed pulmonary vascular congestion. Patient was admitted to ICU with acute on chronic respiratory failure due to COPD exacerbation and pulmonary edema. Patient underwent HD yesterday in ICU with 2.4 L fluid removal. Patient has been on HD for 2 months now. Patient is feeling better now ROS: 12 systems review this morning is negative except for mild SOB [] - Allergies Allergies: Allergies No Known Allergies Allergy (Verified 01/01/18 12:32) - Current Medications Current Medications: Current Medications Amiodarone HCl (Cordarone) 200 mg PO DAILY [facility] Last Admin: 01/20/18 08:28 Dose: 200 mg Aspirin (Ecotrin) 325 mg PO DAILY@0800 [facility] Last Admin: 01/20/18 08:30 Dose: 325 mg Atorvastatin Calcium (Lipitor) 40 mg PO QHS [facility] Last Admin: 01/20/18 02:28 Dose: 40 mg Chlorhexidine Gluconate () 1 each TOPICAL DAILY [facility] Last Admin: 01/20/18 07:10 Dose: 1 each Clonidine (Catapres) 0.1 mg PO TID [facility] Last Admin: 01/20/18 07:10 Dose: 0.1 mg Ergocalciferol (Vitamin D) 50,000 unit PO QMONTH [facility] Furosemide (Lasix) 60 mg PO BID@1000,1800 [facility] Last Admin: 01/20/18 08:22 Dose: 60 mg Gabapentin (Neurontin) 300 mg PO QHS [facility] Last Admin: 01/20/18 02:24 Dose: 300 mg Heparin Sodium (Porcine) (Heparin Na) 5,000 unit SC BID [facility] Last Admin: 01/20/18 08:23 Dose: 5,000 u Sodium Chloride () 250 mls @ 15 mls/hr IV .[id number] PRN PRN Reason: SALINE FLUSH Sodium Chloride () 250 mls @ 15 mls/hr IV .[id number] PRN PRN Reason: SALINE FLUSH Insulin Aspart (Novolog Flexpen (Bk)) 0 units SC ACHS [facility] PRN Reason: Protocol Last Admin: 01/20/18 08:20 Dose: 4 u Insulin Detemir (Levemir ([facility])) 39 units SC BID [facility] Last Admin: 01/20/18 08:29 Dose: 39 units Magnesium Hydroxide (Milk Of Magnesia) 30 ml PO DAILY PRN PRN PRN Reason: Constipation Metoprolol Succinate (Toprol Xl (Beta Suzan)) 25 mg PO DAILY [facility] Last Admin: 01/20/18 08:36 Dose: 25 mg Pantoprazole Sodium (Protonix) 40 mg PO DAILY [facility] Last Admin: 01/20/18 08:28 Dose: 40 mg Polysaccharide Iron Complex (Ferrex 150) 150 mg PO DAILYCM [facility] Sodium Chloride () 5 - 30 ml IV UD PRN PRN Reason: SALINE FLUSH - Past Medical History Past Medical History (Chronic Problems): Chronic Problems (Last Reviewed 01/01/18 @ 18:03 by MIKEY Pina) Rheumatic mitral insufficiency (Chronic) Valvular heart disease (Chronic) End stage COPD (Chronic) Pulmonary hypertension (Chronic) HTN (hypertension) (Chronic) 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) S/P craniotomy (Chronic) For intracerebral hemorrhage Obesity (BMI 30.0-34.9) (Chronic) Morbid obesity (Chronic) CKD (chronic kidney disease) stage 3, GFR 30-59 ml/min (Chronic) Obstructive sleep apnea (Chronic) Untreated Type 2 diabetes mellitus (Chronic) History of cerebral hemorrhage (Chronic) Anemia (Chronic) Aortic stenosis, mild (Chronic) Mitral stenosis (Chronic) mild Stroke (Chronic) Hyperlipidemia (Chronic) Vitamin D deficiency (Chronic) Neuropathic pain (Chronic) - Past Surgical History Surgical History: cholecystectomy, rotator cuff repair, - - Social History Smoking Status: Former smoker - Family History Maternal Family History: Family History (Last Reviewed 01/01/18 @ 18:03 by MIKEY Pina) Mother Cancer Diabetes Kidney disease Father Heart disease Diabetes Kidney disease History Items: Cancer, Diabetes, Renal Disease Paternal Family History: Family History (Last Reviewed 01/01/18 @ 18:03 by MIKEY Pina) Mother Cancer Diabetes Kidney disease Father Heart disease Diabetes Kidney disease History Items: Diabetes, Heart Disease, Renal Disease Patient Problems: Active and Suspected Problems (Last Reviewed 01/01/18 @ 18:03 by MIKEY Pina) ESRD (end stage renal disease) on dialysis (Acute) - Physical Exam General: Alert, Oriented x3 HEENT: Atraumatic Oral: Moist Mucosa Neck: Supple, No JVD Lungs: Diminished, Rhonchi Cardiovascular: Regular rate, Normal S1, Normal S2, Irregular Rate Abdomen: Bowel Sounds Present, Soft, Non Tender Extremities: - - trace edema Lymphatic: No Cervical, Supraclavicular, or Inguinal Adenopathy Neurological: Cranial nerves II-XII grossly intact, Neuro grossly intact Psych/Mental Status: Normal Affect Vital Signs Temp Pulse Resp BP Pulse Ox 97.9 F 69 22 H 120/57 L 93 01/20/18 07:42 01/20/18 08:36 01/20/18 07:42 01/20/18 08:36 01/20/18 07:42 Oxygen Flow Rate (L/min) 3 Oxygen Delivery Method Bi-pap Weight: 86.1 kg Body Mass Index (BMI) 32.4 Intake and Output for Last 24 Hours 01/18/18 01/19/18 01/20/18 23:59 23:59 23:59 Intake Total 250 / 250 568 / 568 Output Total 2800 / 2800 Balance 250 / 250 -2232 / -2232 Microbiology Past 72 Hours 01/19/18 15:17 Influenza Types A,B Direct FA (BRYCE) - Final Mucosa - Nose Laboratory Tests Past 24 Hrs 01/19/18 01/19/18 01/20/18 17:09 18:15 05:10 WBC 5.5 RBC 3.13 L Hgb 9.7 L Hct 30.9 L MCV 98.7 MCH 31.0 MCHC 31.4 L RDW 17.0 H RDW Differential 58.6 H Plt Count 188 MPV 10.2 Immature Gran % (Auto) 0.700 Neut % (Auto) 94.4 H Lymph % (Auto) 4.0 L [place] % (Auto) 0.9 Eos % (Auto) 0.0 Baso % (Auto) 0.0 Absolute Neuts (auto) 5.2 Absolute Lymphs (auto) 0.22 L Total Counted Not Reportable Differential Comment SCANNED Specimen Type ART Sample Site R Radial pH 7.26 L Bicarbonate Actual 31.5 H POC Total CO2 34 Base Excess 5 H O2 Saturation 89 L O2 % 40 ABG pCO2 70.0 H* ABG pO2 66 L Johnny Test NA Respiration Rate 8 O2 Delivery Device Bi / C PAP EPAP 11 IPAP 18 Blood Gas Notified Whom ICU MD Blood Gas Notified Time 1708 Sodium Potassium Chloride Carbon Dioxide Anion Gap BUN Creatinine Estim Creat Clear Calc Est GFR (MDRD) Af Amer Est GFR (MDRD) Non-Af BUN/Creatinine Ratio Glucose Calcium Hep Bs Antigen Hep Bs Ag Confirmation Hep Bs Antibody MRSA (PCR) Negative 01/20/18 01/20/18 01/20/18 05:10 05:10 06:20 WBC RBC Hgb Hct MCV MCH MCHC RDW RDW Differential Plt Count MPV Immature Gran % (Auto) Neut % (Auto) Lymph % (Auto) [place] % (Auto) Eos % (Auto) Baso % (Auto) Absolute Neuts (auto) Absolute Lymphs (auto) Total Counted Differential Comment Specimen Type Sample Site pH Bicarbonate Actual POC Total CO2 Base Excess O2 Saturation O2 % ABG pCO2 ABG pO2 Johnny Test Respiration Rate O2 Delivery Device EPAP IPAP Blood Gas Notified Whom Blood Gas Notified Time Sodium Cancelled 134 L Potassium Cancelled 4.9 Chloride Cancelled 96 L Carbon Dioxide Cancelled 32.0 Anion Gap Cancelled 6 BUN Cancelled 25 H Creatinine Cancelled 2.17 H Estim Creat Clear Calc Cancelled 21.71 Est GFR (MDRD) Af Amer Cancelled 29 L Est GFR (MDRD) Non-Af Cancelled 24 L BUN/Creatinine Ratio Cancelled 11.5 Glucose Cancelled 343 H Calcium Cancelled 8.7 Hep Bs Antigen Cancelled Hep Bs Ag Confirmation Cancelled Hep Bs Antibody MRSA (PCR) 01/20/18 06:20 WBC RBC Hgb Hct MCV MCH MCHC RDW RDW Differential Plt Count MPV Immature Gran % (Auto) Neut % (Auto) Lymph % (Auto) [place] % (Auto) Eos % (Auto) Baso % (Auto) Absolute Neuts (auto) Absolute Lymphs (auto) Total Counted Differential Comment Specimen Type Sample Site pH Bicarbonate Actual POC Total CO2 Base Excess O2 Saturation O2 % ABG pCO2 ABG pO2 Johnny Test Respiration Rate O2 Delivery Device EPAP IPAP Blood Gas Notified Whom Blood Gas Notified Time Sodium Potassium Chloride Carbon Dioxide Anion Gap BUN Creatinine Estim Creat Clear Calc Est GFR (MDRD) Af Amer Est GFR (MDRD) Non-Af BUN/Creatinine Ratio Glucose Calcium Hep Bs Antigen Hep Bs Ag Confirmation Hep Bs Antibody Pending MRSA (PCR) POC Glucose 01/20/18 01/19/18 02:21 16:30 POC Glucose 359 H 238 H Assessment/Plan Active and Suspected Problems (Last Reviewed 01/01/18 @ 18:03 by Josi Hickman NP-C) ESRD (end stage renal disease) on dialysis (Acute) 1- ESRD on MWF HD access is left IJ tunneled cath Last HD session 01/19 with 2.4 L UF Next HD session 01/21 2- acute hypoxemic respiratory on chronic respiratory failure due to pulmonary edema/COPD exacerbation Better with HD Keep O>I COPD management as per the primary service Will continue to follow Nidia Jones MD [phone]
--- NOTE | 2018-01-20 09:53 | CON.PCM_ITS ---
Problem List (1) ESRD (end stage renal disease) on dialysis Status: Acute Consultation - Renal PCP/ Referring MD: Requesting physician: [] Primary care physician: Mat Duffy - History of Present Illness History of Present Illness: The patient is a 72 year old F PMH of ESRD on HD MWF, Afib, DM, COPD, HTN, chronic respiratory failure , hemorrhagic CVA . Patient was sent from HD unit to [facility] ED for SOB and tachypnea. chest xray showed pulmonary vascular congestion. Patient was admitted to ICU with acute on chronic respiratory failure due to COPD exacerbation and pulmonary edema. Patient underwent HD yesterday in ICU with 2.4 L fluid removal. Patient has been on HD for 2 months now. Patient is feeling better now ROS: 12 systems review this morning is negative except for mild SOB [] - Allergies Allergies: Allergies No Known Allergies Allergy (Verified 01/01/18 12:32) - Current Medications Current Medications: Current Medications Amiodarone HCl (Cordarone) 200 mg PO DAILY [facility] Last Admin: 01/20/18 08:28 Dose: 200 mg Aspirin (Ecotrin) 325 mg PO DAILY@0800 [facility] Last Admin: 01/20/18 08:30 Dose: 325 mg Atorvastatin Calcium (Lipitor) 40 mg PO QHS [facility] Last Admin: 01/20/18 02:28 Dose: 40 mg Chlorhexidine Gluconate () 1 each TOPICAL DAILY [facility] Last Admin: 01/20/18 07:10 Dose: 1 each Clonidine (Catapres) 0.1 mg PO TID [facility] Last Admin: 01/20/18 07:10 Dose: 0.1 mg Ergocalciferol (Vitamin D) 50,000 unit PO QMONTH [facility] Furosemide (Lasix) 60 mg PO BID@1000,1800 [facility] Last Admin: 01/20/18 08:22 Dose: 60 mg Gabapentin (Neurontin) 300 mg PO QHS [facility] Last Admin: 01/20/18 02:24 Dose: 300 mg Heparin Sodium (Porcine) (Heparin Na) 5,000 unit SC BID [facility] Last Admin: 01/20/18 08:23 Dose: 5,000 u Sodium Chloride () 250 mls @ 15 mls/hr IV .[id number] PRN PRN Reason: SALINE FLUSH Sodium Chloride () 250 mls @ 15 mls/hr IV .[id number] PRN PRN Reason: SALINE FLUSH Insulin Aspart (Novolog Flexpen (Bk)) 0 units SC ACHS RUBI PRN Reason: Protocol Last Admin: 01/20/18 08:20 Dose: 4 u Insulin Detemir (Levemir ([facility])) 39 units SC BID [facility] Last Admin: 01/20/18 08:29 Dose: 39 units Magnesium Hydroxide (Milk Of Magnesia) 30 ml PO DAILY PRN PRN PRN Reason: Constipation Metoprolol Succinate (Toprol Xl (Beta Suzan)) 25 mg PO DAILY [facility] Last Admin: 01/20/18 08:36 Dose: 25 mg Pantoprazole Sodium (Protonix) 40 mg PO DAILY RUBI Last Admin: 01/20/18 08:28 Dose: 40 mg Polysaccharide Iron Complex (Ferrex 150) 150 mg PO DAILYCM [facility] Sodium Chloride () 5 - 30 ml IV UD PRN PRN Reason: SALINE FLUSH - Past Medical History Past Medical History (Chronic Problems): Chronic Problems (Last Reviewed 01/01/18 @ 18:03 by MIKEY Pina) Rheumatic mitral insufficiency (Chronic) Valvular heart disease (Chronic) End stage COPD (Chronic) Pulmonary hypertension (Chronic) HTN (hypertension) (Chronic) 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) S/P craniotomy (Chronic) For intracerebral hemorrhage Obesity (BMI 30.0-34.9) (Chronic) Morbid obesity (Chronic) CKD (chronic kidney disease) stage 3, GFR 30-59 ml/min (Chronic) Obstructive sleep apnea (Chronic) Untreated Type 2 diabetes mellitus (Chronic) History of cerebral hemorrhage (Chronic) Anemia (Chronic) Aortic stenosis, mild (Chronic) Mitral stenosis (Chronic) mild Stroke (Chronic) Hyperlipidemia (Chronic) Vitamin D deficiency (Chronic) Neuropathic pain (Chronic) - Past Surgical History Surgical History: cholecystectomy, rotator cuff repair, - - Social History Smoking Status: Former smoker - Family History Maternal Family History: Family History (Last Reviewed 01/01/18 @ 18:03 by MIKEY Pina) Mother Cancer Diabetes Kidney disease Father Heart disease Diabetes Kidney disease History Items: Cancer, Diabetes, Renal Disease Paternal Family History: Family History (Last Reviewed 01/01/18 @ 18:03 by MIKEY Pina) Mother Cancer Diabetes Kidney disease Father Heart disease Diabetes Kidney disease History Items: Diabetes, Heart Disease, Renal Disease Patient Problems: Active and Suspected Problems (Last Reviewed 01/01/18 @ 18:03 by MIKEY Pina) ESRD (end stage renal disease) on dialysis (Acute) - Physical Exam General: Alert, Oriented x3 HEENT: Atraumatic Oral: Moist Mucosa Neck: Supple, No JVD Lungs: Diminished, Rhonchi Cardiovascular: Regular rate, Normal S1, Normal S2, Irregular Rate Abdomen: Bowel Sounds Present, Soft, Non Tender Extremities: - - trace edema Lymphatic: No Cervical, Supraclavicular, or Inguinal Adenopathy Neurological: Cranial nerves II-XII grossly intact, Neuro grossly intact Psych/Mental Status: Normal Affect Vital Signs Temp Pulse Resp BP Pulse Ox 97.9 F 69 22 H 120/57 L 93 01/20/18 07:42 01/20/18 08:36 01/20/18 07:42 01/20/18 08:36 01/20/18 07:42 Oxygen Flow Rate (L/min) 3 Oxygen Delivery Method Bi-pap Weight: 86.1 kg Body Mass Index (BMI) 32.4 Intake and Output for Last 24 Hours 01/18/18 01/19/18 01/20/18 23:59 23:59 23:59 Intake Total 250 / 250 568 / 568 Output Total 2800 / 2800 Balance 250 / 250 -2232 / -2232 Microbiology Past 72 Hours 01/19/18 15:17 Influenza Types A,B Direct FA (BRYCE) - Final Mucosa - Nose Laboratory Tests Past 24 Hrs 01/19/18 01/19/18 01/20/18 17:09 18:15 05:10 WBC 5.5 RBC 3.13 L Hgb 9.7 L Hct 30.9 L MCV 98.7 MCH 31.0 MCHC 31.4 L RDW 17.0 H RDW Differential 58.6 H Plt Count 188 MPV 10.2 Immature Gran % (Auto) 0.700 Neut % (Auto) 94.4 H Lymph % (Auto) 4.0 L [place] % (Auto) 0.9 Eos % (Auto) 0.0 Baso % (Auto) 0.0 Absolute Neuts (auto) 5.2 Absolute Lymphs (auto) 0.22 L Total Counted Not Reportable Differential Comment SCANNED Specimen Type ART Sample Site R Radial pH 7.26 L Bicarbonate Actual 31.5 H POC Total CO2 34 Base Excess 5 H O2 Saturation 89 L O2 % 40 ABG pCO2 70.0 H* ABG pO2 66 L Johnny Test NA Respiration Rate 8 O2 Delivery Device Bi / C PAP EPAP 11 IPAP 18 Blood Gas Notified Whom ICU MD Blood Gas Notified Time 1708 Sodium Potassium Chloride Carbon Dioxide Anion Gap BUN Creatinine Estim Creat Clear Calc Est GFR (MDRD) Af Amer Est GFR (MDRD) Non-Af BUN/Creatinine Ratio Glucose Calcium Hep Bs Antigen Hep Bs Ag Confirmation Hep Bs Antibody MRSA (PCR) Negative 01/20/18 01/20/18 01/20/18 05:10 05:10 06:20 WBC RBC Hgb Hct MCV MCH MCHC RDW RDW Differential Plt Count MPV Immature Gran % (Auto) Neut % (Auto) Lymph % (Auto) [place] % (Auto) Eos % (Auto) Baso % (Auto) Absolute Neuts (auto) Absolute Lymphs (auto) Total Counted Differential Comment Specimen Type Sample Site pH Bicarbonate Actual POC Total CO2 Base Excess O2 Saturation O2 % ABG pCO2 ABG pO2 Johnny Test Respiration Rate O2 Delivery Device EPAP IPAP Blood Gas Notified Whom Blood Gas Notified Time Sodium Cancelled 134 L Potassium Cancelled 4.9 Chloride Cancelled 96 L Carbon Dioxide Cancelled 32.0 Anion Gap Cancelled 6 BUN Cancelled 25 H Creatinine Cancelled 2.17 H Estim Creat Clear Calc Cancelled 21.71 Est GFR (MDRD) Af Amer Cancelled 29 L Est GFR (MDRD) Non-Af Cancelled 24 L BUN/Creatinine Ratio Cancelled 11.5 Glucose Cancelled 343 H Calcium Cancelled 8.7 Hep Bs Antigen Cancelled Hep Bs Ag Confirmation Cancelled Hep Bs Antibody MRSA (PCR) 01/20/18 06:20 WBC RBC Hgb Hct MCV MCH MCHC RDW RDW Differential Plt Count MPV Immature Gran % (Auto) Neut % (Auto) Lymph % (Auto) [place] % (Auto) Eos % (Auto) Baso % (Auto) Absolute Neuts (auto) Absolute Lymphs (auto) Total Counted Differential Comment Specimen Type Sample Site pH Bicarbonate Actual POC Total CO2 Base Excess O2 Saturation O2 % ABG pCO2 ABG pO2 Johnny Test Respiration Rate O2 Delivery Device EPAP IPAP Blood Gas Notified Whom Blood Gas Notified Time Sodium Potassium Chloride Carbon Dioxide Anion Gap BUN Creatinine Estim Creat Clear Calc Est GFR (MDRD) Af Amer Est GFR (MDRD) Non-Af BUN/Creatinine Ratio Glucose Calcium Hep Bs Antigen Hep Bs Ag Confirmation Hep Bs Antibody Pending MRSA (PCR) POC Glucose 01/20/18 01/19/18 02:21 16:30 POC Glucose 359 H 238 H Assessment/Plan Active and Suspected Problems (Last Reviewed 01/01/18 @ 18:03 by Josi Hickman NP-C) ESRD (end stage renal disease) on dialysis (Acute) 1- ESRD on MWF HD access is left IJ tunneled cath Last HD session 01/19 with 2.4 L UF Next HD session 01/21 2- acute hypoxemic respiratory on chronic respiratory failure due to pulmonary edema/COPD exacerbation Better with HD Keep O>I COPD management as per the primary service Will continue to follow Nidia Jones MD [phone]
[2018-01-20] MEDS: Iron Polysaccharide Complex 150 MG CAPSULE PO (10:49)
[2018-01-20] MEDS: Albuterol 2.5 MG/3 ML VIAL.NEB. INHALATION ×2 (11:14→15:50)
[2018-01-20 11:30] LABS: Bedside Glucose 478 mg/dL (70-110)
--- NOTE | 2018-01-20 13:53 | CASEMGMT ---
See RN CM Assessment Link. DC plan. Home on discharge with family support. if PT/OT is needed, will need for outpt script (pt is not homebound and can do @ [facility]. -resume hemodialysis per nephrology @ [facility] 7 am. Babita HOLMN RN ACM
--- NOTE | 2018-01-20 15:05 | NURSING ---
report called to [facility] for transfer to room 123 per bed
[2018-01-20 16:11] LABS: Bedside Glucose 400 mg/dL (70-110)
[2018-01-20] MEDS: Ipratropium/Albuterol Sulfate 3 ML AMPUL.NEB INHALATION (19:17)
[2018-01-20 23:30] LABS: Bedside Glucose 421 mg/dL (70-110)
[2018-01-21] VITALS (21 sets, daily range): BP systolic 114–151; BP diastolic 42–65; PULSE 62–83; RESP 14–28; TEMP 36.3–37.2; O2SAT 88–97
[2018-01-21] MEDS: Ipratropium/Albuterol Sulfate 3 ML AMPUL.NEB INHALATION ×3 (00:58→19:17)
[2018-01-21] MEDS: cloNIDine HCl 0.1 MG Tablet PO ×3 (05:44→22:11)
[2018-01-21 06:36] LABS: Absolute Lymphocyte Count 0.97 X10^3/ul (0.83-4.51); Absolute Neutrophil Count 7.7 X10^3/uL (2.0-7.7); Basophil# 0.01 X10^3/uL; Basophil% 0.1 % (0-1); Eosinophil# 0.02 X10^3/uL; Eosinophils% 0.2 % (0-5); Hematocrit 28.5 % (37-47); Hemoglobin 8.7 g/dl (12.0-15.0); Lymphocyte # 0.97 X10^3/ul (4.0); Mean Corp Hgb Conc 30.5 g/gl (32-36); Mean Corpuscular Hgb 31.1 pg (27.0-32.0); Mean Corpuscular Volume 101.8 fL (81-99); Monocyte# 0.88 X10^3/uL; Neutrophil # 7.74 X10^3/uL (2.7-7.7); Neutrophil % 79.6 % (47-70); Platelet Count 211 K/mm3 (150-450); RBC Distribution Width CV 17.4 % (11.6-14.6); RBC Distribution Width SD 61.7 fl (35.1-43.9); White Blood Count 9.7 K/mm3 (4.4-11.0)
[2018-01-21 06:41] LABS: POSITIVE COUNT NO; POSITIVE DIFFERENTIAL NO; POSITIVE MORPHOLOGY NO
[2018-01-21 06:56] LABS: Anion Gap 9 (5-15); BUN 43 mg/dL (7-18); BUN/Creat Ratio 17.3 RATIO (10-20); Calcium,Total 9.1 mg/dL (8.5-10.1); Chloride 98 mmol/L (98-107); Creatinine, Serum 2.49 mg/dL (0.55-1.02); EST Glomerular Filtration Rate 20 mL/min (>60); Est Glom Filt Rate - Afr Amer 25 mL/min (>60); Estimated Creatinine Clearance 18.92 ml/min; Glucose 202 mg/dL (74-106); Potassium 4.6 mmol/L (3.5-5.1); Sodium Level 139 mmol/L (136-145)
[2018-01-21 07:01] LABS: Bedside Glucose 172 mg/dL (70-110)
--- NOTE | 2018-01-21 07:01 | NURSING ---
ROOFING SUPERVISOR went to obtain daily weight this morning and brought to my attention that the weight from today compared to yesterday was a difference of 20 kg. the previous weight was 86.1kg and today the ROOFING SUPERVISOR weighed the patient at 100.1 kg. he notified this RN and i told him to not long it in [facility] since it was such a huge difference. i will pass along to the dayshift RN and ROOFING SUPERVISOR why the daily weight has not been entered and to reweigh patient later.
--- NOTE | 2018-01-21 09:59 | PCM.PROGNOTE ---
Subjective: And examined. She is sitting up in bed in no acute distress. She is maintaining appropriate saturations on 3-4 L of oxygen supplementation. She is waiting on dialysis today, apparently the machine broke down last night so there was a delay. Patient feels her breathing is back to baseline. Objective: Clinical Impression(s) from Imaging Studies Chest X-Ray 01/19/18 08:23 IMPRESSION: No plain film evidence of abnormality in the visualized dialysis catheter Increase in interstitial edema since the previous study, follow-up recommended to assure resolution Persistent plain film evidence of chronic bronchitis Stable cardiomegaly Electronically Signed: Delonte Tang MD at 8:58 EDT , Service support , - Physical Exam General: Alert, Oriented x3, Cooperative, No apparent distress, - - Conversational dyspnea HEENT: Atraumatic, Normocephalic Oral: Moist Mucosa Neck: Supple, Trachea Midline Lungs: - - Poor airflow with Rales posterior bases, L>R Cardiovascular: Regular Rhythm, Normal S1, Normal S2, No rub noted, No Gallop Abdomen: Bowel Sounds Present, Soft, Non Tender, Non-Distended, Obese Extremities: No clubbing, No cyanosis, Capillary Refill Less than 3 Seconds, Diminished Peripheral Pulses, Edema Skin: No rashes, No breakdown Musculoskeletal: No Tenderness to Palpation of Joints or Extremities Lymphatic: No Cervical, Supraclavicular, or Inguinal Adenopathy Neurological: Cranial nerves II-XII grossly intact, Neuro grossly intact, Motor Exam 5/5 strength throughout Psych/Mental Status: Alert and oriented to time, place, person, mood and affect Vital Signs Temp Pulse Resp BP Pulse Ox 98.2 F 75 18 151/65 H 95 01/21/18 09:40 01/21/18 09:40 01/21/18 09:40 01/21/18 09:40 01/21/18 09:40 Oxygen Flow Rate (L/min) 3 Oxygen Delivery Method Nasal Cannula Weight: 189 lb 13.088 oz Body Mass Index (BMI) 32.4 Intake and Output for Last 24 Hours 01/19/18 01/20/18 01/21/18 23:59 23:59 23:59 Intake Total 250 / 250 1468 / 1468 30 / 30 Output Total 3000 / 3000 Balance 250 / 250 -1532 / -1532 30 / 30 Microbiology Past 72 Hours 01/19/18 15:17 Influenza Types A,B Direct FA (BRYCE) - Final Mucosa - Nose Laboratory Tests Past 24 Hrs 01/21/18 01/21/18 06:10 06:10 WBC 9.7 RBC 2.80 L Hgb 8.7 L Hct 28.5 L MCV 101.8 H MCH 31.1 MCHC 30.5 L RDW 17.4 H RDW Differential 61.7 H Plt Count 211 MPV 9.0 Immature Gran % (Auto) 1.100 H Neut % (Auto) 79.6 H Lymph % (Auto) 10.0 L [place] % (Auto) 9.0 Eos % (Auto) 0.2 Baso % (Auto) 0.1 Absolute Neuts (auto) 7.7 Absolute Lymphs (auto) 0.97 Total Counted Not Reportable Sodium 139 Potassium 4.6 Chloride 98 Carbon Dioxide 32.0 Anion Gap 9 BUN 43 H Creatinine 2.49 H Estim Creat Clear Calc 18.92 Est GFR (MDRD) Af Amer 25 L Est GFR (MDRD) Non-Af 20 L BUN/Creatinine Ratio 17.3 Glucose 202 H Calcium 9.1 POC Glucose 01/21/18 01/20/18 01/20/18 06:56 22:43 16:06 POC Glucose 172 H 421 H 400 H 01/20/18 11:21 POC Glucose 478 H* Medical Necessity - Tobacco Use Smoking Status: Former smoker Tobacco Use: Secondhand Assessment/Plan RECOMMENDATIONS: 1. Hemodialysis per nephrology 2. Continue bronchodilators 3. Continue baseline BiPAP 20/08 at night and with naps 4. Continue basal insulin and sliding scale 5. Okay to discharge from pulmonary perspective IMPRESSIONS: 1. Acute on chronic combined respiratory failure/end-stage COPD/pulmonary hypertension secondary to scleroderma Patient is not giving any prodromal symptoms consistent with a COPD exacerbation. Patient did miss hemodialysis this morning and does have increased infiltrates on chest x-ray. Patient treated with hemodialysis with significant improvement in overall condition. Will transition back to baseline diuretic therapy. Discontinue antibiotics and steroids as pneumonia would likely not get better this quickly. Transition back to baseline INES therapy. Wean oxygen as tolerated. Likely okay to discharge later today after dialysis. 2. History of new onset atrial fibrillation with RVR Patient is in normal sinus rhythm at this time. Patient would likely benefit from right heart catheterization once euvolemic. 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 She follows with Dr. Carroll as an outpatient 3. Hyperkalemia/CKD/morbid obesity/peripheral artery occlusive disease/crest variant of scleroderma/HTN/DM/INES/history of cerebral hemorrhage/anemia/stroke/HLD/neuropathic pain/vitamin D deficiency Complicates care, management, recovery, and prognosis. Renal is following.
--- NOTE | 2018-01-21 10:11 | PN_ITS ---
Subjective: And examined. She is sitting up in bed in no acute distress. She is maintaining appropriate saturations on 3-4 L of oxygen supplementation. She is waiting on dialysis today, apparently the machine broke down last night so there was a delay. Patient feels her breathing is back to baseline. Objective: Clinical Impression(s) from Imaging Studies Chest X-Ray 01/19/18 08:23 IMPRESSION: No plain film evidence of abnormality in the visualized dialysis catheter Increase in interstitial edema since the previous study, follow-up recommended to assure resolution Persistent plain film evidence of chronic bronchitis Stable cardiomegaly Electronically Signed: Delonte Tang MD at 8:58 EDT , Service support , - Physical Exam General: Alert, Oriented x3, Cooperative, No apparent distress, - - Conversational dyspnea HEENT: Atraumatic, Normocephalic Oral: Moist Mucosa Neck: Supple, Trachea Midline Lungs: - - Poor airflow with Rales posterior bases, L>R Cardiovascular: Regular Rhythm, Normal S1, Normal S2, No rub noted, No Gallop Abdomen: Bowel Sounds Present, Soft, Non Tender, Non-Distended, Obese Extremities: No clubbing, No cyanosis, Capillary Refill Less than 3 Seconds, Diminished Peripheral Pulses, Edema Skin: No rashes, No breakdown Musculoskeletal: No Tenderness to Palpation of Joints or Extremities Lymphatic: No Cervical, Supraclavicular, or Inguinal Adenopathy Neurological: Cranial nerves II-XII grossly intact, Neuro grossly intact, Motor Exam 5/5 strength throughout Psych/Mental Status: Alert and oriented to time, place, person, mood and affect Vital Signs Temp Pulse Resp BP Pulse Ox 98.2 F 75 18 151/65 H 95 01/21/18 09:40 01/21/18 09:40 01/21/18 09:40 01/21/18 09:40 01/21/18 09:40 Oxygen Flow Rate (L/min) 3 Oxygen Delivery Method Nasal Cannula Weight: 189 lb 13.088 oz Body Mass Index (BMI) 32.4 Intake and Output for Last 24 Hours 01/19/18 01/20/18 01/21/18 23:59 23:59 23:59 Intake Total 250 / 250 1468 / 1468 30 / 30 Output Total 3000 / 3000 Balance 250 / 250 -1532 / -1532 30 / 30 Microbiology Past 72 Hours 01/19/18 15:17 Influenza Types A,B Direct FA (BRYCE) - Final Mucosa - Nose Laboratory Tests Past 24 Hrs 01/21/18 01/21/18 06:10 06:10 WBC 9.7 RBC 2.80 L Hgb 8.7 L Hct 28.5 L MCV 101.8 H MCH 31.1 MCHC 30.5 L RDW 17.4 H RDW Differential 61.7 H Plt Count 211 MPV 9.0 Immature Gran % (Auto) 1.100 H Neut % (Auto) 79.6 H Lymph % (Auto) 10.0 L [place] % (Auto) 9.0 Eos % (Auto) 0.2 Baso % (Auto) 0.1 Absolute Neuts (auto) 7.7 Absolute Lymphs (auto) 0.97 Total Counted Not Reportable Sodium 139 Potassium 4.6 Chloride 98 Carbon Dioxide 32.0 Anion Gap 9 BUN 43 H Creatinine 2.49 H Estim Creat Clear Calc 18.92 Est GFR (MDRD) Af Amer 25 L Est GFR (MDRD) Non-Af 20 L BUN/Creatinine Ratio 17.3 Glucose 202 H Calcium 9.1 POC Glucose 01/21/18 01/20/18 01/20/18 06:56 22:43 16:06 POC Glucose 172 H 421 H 400 H 01/20/18 11:21 POC Glucose 478 H* Medical Necessity - Tobacco Use Smoking Status: Former smoker Tobacco Use: Secondhand Assessment/Plan RECOMMENDATIONS: 1. Hemodialysis per nephrology 2. Continue bronchodilators 3. Continue baseline BiPAP 20/08 at night and with naps 4. Continue basal insulin and sliding scale 5. Okay to discharge from pulmonary perspective IMPRESSIONS: 1. Acute on chronic combined respiratory failure/end-stage COPD/pulmonary hypertension secondary to scleroderma Patient is not giving any prodromal symptoms consistent with a COPD exacerbation. Patient did miss hemodialysis this morning and does have increased infiltrates on chest x-ray. Patient treated with hemodialysis with significant improvement in overall condition. Will transition back to baseline diuretic therapy. Discontinue antibiotics and steroids as pneumonia would likely not get better this quickly. Transition back to baseline INES therapy. Wean oxygen as tolerated. Likely okay to discharge later today after dialysis. 2. History of new onset atrial fibrillation with RVR Patient is in normal sinus rhythm at this time. Patient would likely benefit from right heart catheterization once euvolemic. 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 She follows with Dr. Carroll as an outpatient 3. Hyperkalemia/CKD/morbid obesity/peripheral artery occlusive disease/ crest variant of scleroderma/HTN/DM/INES/history of cerebral hemorrhage/anemia/ stroke/HLD/neuropathic pain/vitamin D deficiency Complicates care, management, recovery, and prognosis. Renal is following.
--- NOTE | 2018-01-21 10:12 | DCINST_ITS ---
- Discharge Diagnoses Current Active Problems: Current Active and Chronic Problems (Last Updated 01/20/18 @ 11:18 by Fahad Sesay MD) ESRD (end stage renal disease) on dialysis (Chronic) You will use the following diet at home:: Calorie/Carbohydrate Controlled ( specify 1200, 1400, etc) - 1800 travis, Cardiac, Renal (restricted protein/sodium) Your food should be the consistency of: Regular Discharge Activity: Return to Normal Activity Weight Bearing Status: Weight bearing as tolerated Call your doctor if you observe: Fever of 101 or Higher, Shortness of breath, Dizziness, Fainting spells, Chest pain, Increased palpitations (irregular heartbeat), Uncontrolled pain Allergies/Adverse Reactions: Allergies No Known Allergies Allergy (Verified 01/01/18 12:32) Medications to take at Discharge Atorvastatin Calcium [Lipitor] 40 mg PO QHS 11/27/17 Clonidine HCl 0.1 mg PO TID 11/27/17 Ergocalciferol [Vitamin D] 50,000 unit PO QMONTH 11/27/17 Furosemide [Lasix] 60 mg PO BID 11/27/17 Gabapentin [Neurontin] 300 mg PO QHS 11/27/17 Insulin Aspart [Novolog Flexpen] See Protocol SC TIDCM 11/27/17 Iron Polysaccharide Complex [Ferrex 150] 150 mg PO DAILYCM 11/27/17 Metoprolol Succinate [Toprol Xl] 25 mg PO DAILY 11/27/17 Pantoprazole Sodium [Protonix] 40 mg PO DAILY 11/27/17 Amiodarone HCl [Cordarone] 200 mg PO DAILY 01/19/18 Aspirin E.C. [Ecotrin] 325 mg PO DAILY@0800 01/19/18 Insulin Glargine [Lantus SoloStar Pen] 39 units SC BID 01/19/18 Primary Care Physician: Mat Duffy MD [Primary Care Provider] - Please follow up with your Primary Care Physician in: 2 weeks. Please Follow Up With: Trell Freeman MD When: Please call his office
--- NOTE | 2018-01-21 11:10 | CASEMGMT ---
Therapy is recommending further skilled therapy at this time. Pt is still active with [facility] for skilled RN. Call to Sussy at [facility] and PT/OT added on again at this time, voices understanding. Resumption of care order placed at this time with added order of PT/OT. Pt/ updated on all at this time, voice understanding. Pt/ voice no further questions/concerns at this time. Pt to be discharged s/p dialysis. Justin BENITEZ CM
--- NOTE | 2018-01-21 11:24 | PCM.PN.REN ---
Subjective: Patient was seen during HD session today She is tolerating the session well - Physical Exam General: Alert, Oriented x3 HEENT: Atraumatic Oral: Moist Mucosa Neck: Supple, No JVD Lungs: Diminished, Rhonchi Cardiovascular: Regular rate, Normal S1, Normal S2 Abdomen: Bowel Sounds Present, Soft, Non Tender Extremities: No clubbing, - - trace edema Skin: No rashes Musculoskeletal: No Tenderness to Palpation of Joints or Extremities Lymphatic: No Cervical, Supraclavicular, or Inguinal Adenopathy Neurological: Cranial nerves II-XII grossly intact, Neuro grossly intact Psych/Mental Status: Normal Affect Vital Signs Temp Pulse Resp BP Pulse Ox 98.2 F 75 18 151/65 H 95 01/21/18 09:40 01/21/18 09:40 01/21/18 09:40 01/21/18 09:40 01/21/18 09:40 Oxygen Flow Rate (L/min) 3 Oxygen Delivery Method Nasal Cannula Weight: 86.1 kg Body Mass Index (BMI) 32.4 Intake and Output for Last 24 Hours 01/19/18 01/20/18 01/21/18 23:59 23:59 23:59 Intake Total 250 / 250 1468 / 1468 30 Output Total 3000 / 3000 Balance 250 / 250 -1532 / -1532 Microbiology Past 72 Hours 01/19/18 15:17 Influenza Types A,B Direct FA (BRYCE) - Final Mucosa - Nose Laboratory Tests Past 24 Hrs 01/21/18 01/21/18 06:10 06:10 WBC 9.7 RBC 2.80 L Hgb 8.7 L Hct 28.5 L MCV 101.8 H MCH 31.1 MCHC 30.5 L RDW 17.4 H RDW Differential 61.7 H Plt Count 211 MPV 9.0 Immature Gran % (Auto) 1.100 H Neut % (Auto) 79.6 H Lymph % (Auto) 10.0 L [place] % (Auto) 9.0 Eos % (Auto) 0.2 Baso % (Auto) 0.1 Absolute Neuts (auto) 7.7 Absolute Lymphs (auto) 0.97 Total Counted Not Reportable Sodium 139 Potassium 4.6 Chloride 98 Carbon Dioxide 32.0 Anion Gap 9 BUN 43 H Creatinine 2.49 H Estim Creat Clear Calc 18.92 Est GFR (MDRD) Af Amer 25 L Est GFR (MDRD) Non-Af 20 L BUN/Creatinine Ratio 17.3 Glucose 202 H Calcium 9.1 POC Glucose 01/21/18 01/20/18 01/20/18 06:56 22:43 16:06 POC Glucose 172 H 421 H 400 H 01/20/18 11:21 POC Glucose 478 H* Medical Necessity - Tobacco Use Smoking Status: Former smoker Tobacco Use: Secondhand Assessment/Plan 1- ESRD on MWF HD access is IJ tunneled cath HD session today: BQ 350, DQ 600. UF 2L Next HD session 01/23 2- acute hypoxemic respiratory on chronic respiratory failure due to pulmonary edema/COPD exacerbation Better with HD Keep O>I COPD management as per the primary service Will continue to follow Nidia Jones MD [phone]
[2018-01-21 11:40] LABS: Hep B Surface Antibodies Non Reactive (.)
[2018-01-21 12:06] LABS: Bedside Glucose 163 mg/dL (70-110)
[2018-01-21] MEDS: Cefazolin 2 GM in 0.9% Normal Saline 100 ML IV (12:40)
--- NOTE | 2018-01-21 12:40 | NURSING ---
RN updated RT of brief incident of increased shortness of breath shortly after starting dialysis. Patient on bipap at 40% FiO2 with oxygen saturations at 95%.
--- NOTE | 2018-01-21 15:01 | PN_ITS ---
Subjective: Chief complaint: Follow-up after admission for acute on chronic hypoxic and hypercarbic respiratory failure due to acute pulmonary edema. Patient seen and examined. No acute events overnight. This morning, patient was fine and she did mention that her breathing is better. She remains on 3.5- 4 L of oxygen and has been almost close to baseline at home. She was started on dialysis this afternoon and she started to get short of breath on dialysis. She was put back on BiPAP and she feels better. Her other vital signs are stable. - Physical Exam General: Alert, Oriented x3, Cooperative, - - Mildly short of breath. HEENT: Atraumatic, PERRLA, EOMI Oral: Moist Mucosa, No Gingival or Mucosal Lesions/ Ulcerations Neck: Supple, No JVD, Negative Carotid Bruits, Trachea Midline, Thyroid Normal Size and Texture Lungs: Clear to auscultation, No wheeze, No rales, Diminished, Rhonchi Cardiovascular: Regular rate, Regular Rhythm, Normal S1, Normal S2, PMI Normal Abdomen: Bowel Sounds Present, Soft, Non Tender, Non-Distended, No Hepato- splenomegaly Extremities: No clubbing, No cyanosis, Edema - Trace edema. Skin: No rashes, No breakdown Lymphatic: No Cervical, Supraclavicular, or Inguinal Adenopathy Neurological: Cranial nerves II-XII grossly intact, Motor Exam 5/5 strength throughout Psych/Mental Status: Normal Affect, Appropriate, Alert and oriented to time, place, person, mood and affect Vital Signs Temp Pulse Resp BP Pulse Ox 98.2 F 75 18 151/65 H 95 01/21/18 09:40 01/21/18 12:05 01/21/18 09:40 01/21/18 09:40 01/21/18 09:40 Oxygen Flow Rate (L/min) 3 Oxygen Delivery Method Nasal Cannula Weight: 189 lb 13.088 oz Body Mass Index (BMI) 32.4 Intake and Output for Last 24 Hours 01/19/18 01/20/18 01/21/18 23:59 23:59 23:59 Intake Total 250 / 250 1468 / 1468 30 / 30 Output Total 3000 / 3000 Balance 250 / 250 -1532 / -1532 30 / 30 Microbiology Past 72 Hours 01/19/18 15:17 Influenza Types A,B Direct FA (BRYCE) - Final Mucosa - Nose Laboratory Tests Past 24 Hrs 01/20/18 01/21/18 01/21/18 06:20 06:10 06:10 WBC 9.7 RBC 2.80 L Hgb 8.7 L Hct 28.5 L MCV 101.8 H MCH 31.1 MCHC 30.5 L RDW 17.4 H RDW Differential 61.7 H Plt Count 211 MPV 9.0 Immature Gran % (Auto) 1.100 H Neut % (Auto) 79.6 H Lymph % (Auto) 10.0 L [place] % (Auto) 9.0 Eos % (Auto) 0.2 Baso % (Auto) 0.1 Absolute Neuts (auto) 7.7 Absolute Lymphs (auto) 0.97 Total Counted Not Reportable Sodium 139 Potassium 4.6 Chloride 98 Carbon Dioxide 32.0 Anion Gap 9 BUN 43 H Creatinine 2.49 H Estim Creat Clear Calc 18.92 Est GFR (MDRD) Af Amer 25 L Est GFR (MDRD) Non-Af 20 L BUN/Creatinine Ratio 17.3 Glucose 202 H Calcium 9.1 Hep Bs Antibody Non Reactive POC Glucose 01/21/18 01/21/18 01/20/18 12:03 06:56 22:43 POC Glucose 163 H 172 H 421 H 01/20/18 16:06 POC Glucose 400 H Medical Necessity - Tobacco Use Smoking Status: Former smoker Tobacco Use: Secondhand Assessment/Plan This is a 72 years old female patient presented to the emergency room because of shortness of breath at hemodialysis and she was sent to the ER for evaluation , found to have acute pulmonary edema and she was admitted with acute on chronic hypoxic and hypercapnic respiratory failure. #1 acute pulmonary edema: Status post dialysis, currently on dialysis but she got more short of breath while on dialysis. This morning before the visit, she was fine and everything was stable at 3.5-4 L of oxygen. Plan to continue diuresis for now, ambulate off the visit and if she remains stable on 2.5 L of oxygen with ambulation, she can be discharged home today. Nephrology is following and recommended next dialysis on January 23, 2018. #2 acute on chronic hypoxic and hypercapnic respiratory failure: Secondary to above. Status post dialysis, respiratory status improved. ABG revealed pH of 7.26, PCO2 70 and PO2 of 66. At home, she has been oxygen at 3.5 L. Plan as above. #3 ESRD on hemodialysis: She is receiving dialysis at this time. Nephrology recommended next history of dialysis will be after tomorrow. #4 hypertension: Blood pressure stable, continue Catapres, Lasix and metoprolol. #5 type 2 diabetes mellitus: ADA diet, Accu-Cheks, insulin sliding scale, continue Levemir twice daily. #6 paroxysmal A. fib: Rate has been stable, continue amiodarone and metoprolol for rate control. She is not on anticoagulation. #7 COPD: Continue albuterol as needed, start DuoNeb every 6 hours. #8 DVT prophylaxis: Subcu heparin. Other chronic medical problems: #1 pulmonary hypertension. #2 scleroderma. #3 peripheral vascular disease. #4 history of cerebral hemorrhage, status post craniotomy. #5 chronic anemia. #6 hyperlipidemia. This note was generated with [employer] dictation software. It may contain incorrect words, spelling, and punctuation that were not noted in checking the note before signing.
[2018-01-21] MEDS: Alteplase 2 MG/2 ML Vial IV ×2 (16:45)
[2018-01-21] MEDS: Heparin 10,000 UNITS/10 ML Vial IV (16:45)
--- NOTE | 2018-01-21 17:30 | DIALYSIS ---
Hemodialysis today scheduled for 4 hours but ran only 3 hours 5 minutes due to poorly functioning dialysis catheter. Initially catheter would only get a BFR of around 200-300 and progressively worsened. Treatment stopped at one point and TPA instilled for 40 minutes with no improvement with flows. UF 3100ml removed. Patient was dyspnic approx after 30-40 minutes of dialysis with sats dropping into the 80's and was placed on bipap with improvement of sats to 96%. See Dialysis treatment sheet for details. BP stable throughout treatment. Report given to Sussy BENITEZ. discussed (updated throughout) with Dr Jones and orders received to consult Dr. Craft for new dialysis catheter placement.
[2018-01-21 17:36] LABS: Bedside Glucose 148 mg/dL (70-110)
[2018-01-21] MEDS: Aspirin E.C. 325 MG Tablet PO (18:11)
[2018-01-21] MEDS: Heparin Injection (Vial) 5,000 UNIT/ML VIAL 5000 UNIT SC ×2 (18:12→22:11)
[2018-01-21] MEDS: Amiodarone 200 MG Tablet PO (18:12)
[2018-01-21] MEDS: Iron Polysaccharide Complex 150 MG CAPSULE PO (18:12)
[2018-01-21] MEDS: Furosemide 20 MG Tablet 60 MG PO (18:13)
[2018-01-21] MEDS: Metoprolol(XL)Succ 25 MG Tablet PO (18:14)
[2018-01-21] MEDS: Pantoprazole Sodium 40 MG Tablet PO (18:14)
--- NOTE | 2018-01-21 18:40 | CON.PCM_ITS ---
Problem List (1) Problem with dialysis access Status: Acute Qualifiers: Encounter type: initial encounter Qualified Code(s): T82.898A - Other specified complication of vascular prosthetic devices, implants and grafts, initial encounter Reason for Consult Date of Consultation: 01/21/18 History of Present Illness: The patient is a 72 year old F [who was admitted to the [facility] on January 19, 2018 with shortness of breath. On December 08, 2017 after being consulted I placed a left internal jugular 23 cm pre-curved tunneled palindrome catheter for hemodialysis. At that time the patient had previously had a right internal jugular temporary catheters placed in the intensive care unit. According to the patient she was referred by Dr. Romeo to [facility] changed over to new catheters. Patient apparently was there to get advanced renal testing including a renal biopsy. The patient 2 days ago had successful hemodialysis through her tunneled dialysis catheters here in the hospital but today there were difficulties with catheter and once again a request has been made for new catheter placement. According to the patient and her she is not yet been referred for fistula creation. She does not believe that she has had vein mapping done of her arms. She does note that she is short of breath though slightly improved over admission. She has significant medical comorbidities including her significant ongoing shortness of breath end-stage renal disease on hemodialysis atrial fibrillation and type 2 diabetes mellitus advanced COPD chronic hypoxic respiratory failure essential hypertension history of cerebral bleed plus status post craniectomy. Obesity. Her most recent laboratory obtained today show white count of 9.7 with a 3.7 hematocrit 28.5 and a platelet count of 211,000. Her BUN is 43 and creatinine is 2.49. Glucose is 202. She has had a blood sugar as high as 421 during this presentation. Past Medical History Past Medical History (Chronic Problems): Chronic Problems (Last Updated 01/20/18 @ 11:18 by Fahad Sesay MD) ESRD (end stage renal disease) on dialysis (Chronic) Rheumatic mitral insufficiency (Chronic) Paroxysmal A-fib (Chronic) Valvular heart disease (Chronic) End stage COPD (Chronic) Pulmonary hypertension (Chronic) HTN (hypertension) (Chronic) 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) S/P craniotomy (Chronic) For intracerebral hemorrhage Obesity (BMI 30.0-34.9) (Chronic) Morbid obesity (Chronic) Obstructive sleep apnea (Chronic) Untreated Type 2 diabetes mellitus (Chronic) History of cerebral hemorrhage (Chronic) Anemia (Chronic) Aortic stenosis, mild (Chronic) Mitral stenosis (Chronic) mild Stroke (Chronic) Hyperlipidemia (Chronic) Vitamin D deficiency (Chronic) Neuropathic pain (Chronic) Allergies No Known Allergies Allergy (Verified 01/01/18 12:32) Home Medications: Ambulatory Orders Medication Instructions Recorded Atorvastatin Calcium [Lipitor] 40 mg PO QHS 11/27/17 Clonidine HCl 0.1 mg PO TID 11/27/17 Ergocalciferol [Vitamin D] 50,000 unit PO QMONTH 11/27/17 Furosemide [Lasix] 60 mg PO BID 11/27/17 Gabapentin [Neurontin] 300 mg PO QHS 11/27/17 Insulin Aspart [Novolog Flexpen] See Protocol SC TIDCM 11/27/17 Iron Polysaccharide Complex 150 mg PO DAILYCM 11/27/17 [Ferrex 150] Metoprolol Succinate [Toprol Xl] 25 mg PO DAILY 11/27/17 Pantoprazole Sodium [Protonix] 40 mg PO DAILY 11/27/17 Amiodarone HCl [Cordarone] 200 mg PO DAILY 01/19/18 Aspirin E.C. [Ecotrin] 325 mg PO DAILY@0800 01/19/18 Insulin Glargine [Lantus SoloStar 39 units SC BID 01/19/18 Pen] Surgical History: cholecystectomy, rotator cuff repair, - Smoking Status: Former smoker Tobacco Use: Secondhand - *Family History Maternal History Items: Cancer, Diabetes, Renal Disease Paternal History Items: Diabetes, Heart Disease, Renal Disease Review of Systems Constitutional: Denies: Anorexia Eyes: Denies: Blurred vision HEENT: Denies: Difficulty Hearing Cardiovascular: Reports: Heaviness Respiratory: Reports: Cough, Shortness of Breath Gastrointestinal: Denies: Abdominal Pain Genitourinary: Denies: Dysuria Musculoskeletal: Denies: Arm Pain Patient Problems: Active and Suspected Problems (Last Updated 01/20/18 @ 11:18 by Fahad Sesay MD) Problem with dialysis access (Acute) - Physical Exam General: Alert, Oriented x3, Cooperative HEENT: Atraumatic Oral: Moist Mucosa Neck: Supple Lungs: - - Notably diminished air excursion. Rales 50% up Erythema at the exit site left anterior chest from the tunneled dialysis catheters. Persistent Steri -Stripped left neck Cardiovascular: Regular rate Abdomen: Bowel Sounds Present, Soft, Non Tender Extremities: No clubbing Musculoskeletal: No Tenderness to Palpation of Joints or Extremities Psych/Mental Status: Normal Affect Vital Signs Temp Pulse Resp BP Pulse Ox 98.7 F 74 18 142/62 H 96 01/21/18 15:40 01/21/18 18:14 01/21/18 15:40 01/21/18 18:14 01/21/18 15:40 Oxygen Flow Rate (L/min) 3.5 Oxygen Delivery Method Nasal Cannula Weight: 189 lb 13.088 oz Body Mass Index (BMI) 32.4 Intake and Output for Last 24 Hours 01/19/18 01/20/18 01/21/18 23:59 23:59 23:59 Intake Total 250 / 250 1468 / 1468 390 / 390 Output Total 3000 / 3000 3200 / 3200 Balance 250 / 250 -1532 / -1532 -2810 / -2810 Microbiology Past 72 Hours 01/19/18 15:17 Influenza Types A,B Direct FA (BRYCE) - Final Mucosa - Nose Laboratory Tests Past 24 Hrs 01/20/18 01/21/18 01/21/18 06:20 06:10 06:10 WBC 9.7 RBC 2.80 L Hgb 8.7 L Hct 28.5 L MCV 101.8 H MCH 31.1 MCHC 30.5 L RDW 17.4 H RDW Differential 61.7 H Plt Count 211 MPV 9.0 Immature Gran % (Auto) 1.100 H Neut % (Auto) 79.6 H Lymph % (Auto) 10.0 L [place] % (Auto) 9.0 Eos % (Auto) 0.2 Baso % (Auto) 0.1 Absolute Neuts (auto) 7.7 Absolute Lymphs (auto) 0.97 Total Counted Not Reportable Sodium 139 Potassium 4.6 Chloride 98 Carbon Dioxide 32.0 Anion Gap 9 BUN 43 H Creatinine 2.49 H Estim Creat Clear Calc 18.92 Est GFR (MDRD) Af Amer 25 L Est GFR (MDRD) Non-Af 20 L BUN/Creatinine Ratio 17.3 Glucose 202 H Calcium 9.1 Hep Bs Antibody Non Reactive POC Glucose 01/21/18 01/21/18 01/21/18 17:32 12:03 06:56 POC Glucose 148 H 163 H 172 H 01/20/18 22:43 POC Glucose 421 H Assessment/Plan Active and Suspected Problems (Last Updated 01/20/18 @ 11:18 by Fahad Sesay MD) Problem with dialysis access (Acute) I am recommending the patient an attempt at ultrasound-guided tunneled dialysis catheter placement right internal jugular vein. She is aware the technique, benefits, risks and alternatives. I recommended removal of her left IJ catheters at that setting secondary to the erythema at the catheter exit site. It would seem reasonable in the near future to initiate evaluation for her AV fistula if that is deemed reasonable per nephrology. OR scheduling is allowing for a time slot approximately 2 to 3:00 tomorrow afternoon. I appreciate the opportunity of assisting with her surgical care Anoop Angeles M.D., F.A.C.S.
[2018-01-21] MEDS: Gabapentin 300 MG Capsule PO (22:12)
[2018-01-21] MEDS: Atorvastatin Calcium 40 MG Tablet PO (22:12)
[2018-01-22] VITALS (22 sets, daily range): BP systolic 105–171; BP diastolic 43–91; PULSE 55–85; RESP 14–24; TEMP 36.1–36.8; O2SAT 88–97; BMI 34.8
[2018-01-22 00:06] LABS: Bedside Glucose 356 mg/dL (70-110)
--- NOTE | 2018-01-22 05:55 | EKG12_ITS ---
Test Reason : AM EKG Blood Pressure : / mmHG Vent. Rate : 056 BPM Atrial Rate : 056 BPM P-R Int : 166 ms QRS Dur : 094 ms QT Int : 478 ms P-R-T Axes : 024 090 062 degrees QTc Int : 461 ms Sinus bradycardia Low voltage QRS (LIMB LEADS) Poor R wave progression Confirmed by JOSE ALEJANDRO LOONEY, MIKE ([id number]), art editor HONORIO SHEFFIELD ([id number] on 01/23/2018 1:25:54 PM Referred By: MATEO Confirmed By:MIKE BLOUNT MD
[2018-01-22] MEDS: cloNIDine HCl 0.1 MG Tablet PO ×2 (06:04→16:53)
[2018-01-22 06:27] LABS: Absolute Lymphocyte Count 1.12 X10^3/ul (0.83-4.51); Absolute Neutrophil Count 3.9 X10^3/uL (2.0-7.7); Basophil# 0.01 X10^3/uL; Basophil% 0.2 % (0-1); Eosinophil# 0.09 X10^3/uL; Eosinophils% 1.6 % (0-5); Hematocrit 31.4 % (37-47); Hemoglobin 9.4 g/dl (12.0-15.0); Lymphocyte # 1.12 X10^3/ul (4.0); Mean Corp Hgb Conc 29.9 g/gl (32-36); Mean Corpuscular Hgb 30.2 pg (27.0-32.0); Mean Platelet Vol. 8.9 fl (6.2-12.0); Monocyte# 0.41 X10^3/uL; Monocyte% 7.3 % (0-10); Neutrophil # 3.89 X10^3/uL (2.7-7.7); Neutrophil % 69.3 % (47-70); Platelet Count 174 K/mm3 (150-450); RBC Distribution Width SD 65.2 fl (35.1-43.9); Red Blood Count 3.11 M/mm3 (4.2-5.4); White Blood Count 5.6 K/mm3 (4.4-11.0)
[2018-01-22 06:28] LABS: International Normalized Ratio 1.1; Prothrombin Time (Protime)PT. 14.5 SECONDS (11.7-14.9)
[2018-01-22 06:29] LABS: Partial Thromboplast Time 41.6 Seconds (24.1-36.2)
[2018-01-22 06:33] LABS: Differential Indicated SCAN CRITERIA MET; POSITIVE COUNT NO; POSITIVE DIFFERENTIAL NO; POSITIVE MORPHOLOGY YES
[2018-01-22 06:38] LABS: Anion Gap 5 (5-15); BUN 38 mg/dL (7-18); Calcium,Total 8.6 mg/dL (8.5-10.1); Chloride 101 mmol/L (98-107); Creatinine, Serum 2.23 mg/dL (0.55-1.02); EST Glomerular Filtration Rate 23 mL/min (>60); Est Glom Filt Rate - Afr Amer 28 mL/min (>60); Estimated Creatinine Clearance 21.12 ml/min; Glucose 181 mg/dL (74-106); Potassium 4.5 mmol/L (3.5-5.1); Sodium Level 141 mmol/L (136-145)
[2018-01-22 07:00] LABS: Bedside Glucose 195 mg/dL (70-110)
[2018-01-22 07:03] LABS: Anisocytosis 3+; Differential Comment SCANNED; Macrocytosis 2+
[2018-01-22] MEDS: Ipratropium/Albuterol Sulfate 3 ML AMPUL.NEB INHALATION (07:38)
[2018-01-22 08:04] LABS: Hemoglobin A1c 6.4 % (4.2-6.3)
--- NOTE | 2018-01-22 08:04 | PN_ITS ---
Patient Problems: Active and Suspected Problems (Last Updated 01/20/18 @ 11:18 by Fahad Sesay MD) Problem with dialysis access (Acute) Subjective: Chief complaint: Follow-up after admission for acute on chronic hypoxic and hypercarbic respiratory failure due to acute pulmonary edema. Also, there was a problem with the dialysis fistula for which vascular surgery consulted. Patient seen and examined. No acute events overnight. Today, she feels better , shortness of breath improved. She mentioned that she gets more short of breath when she lays flat, orthopnea. No significant complaints today. Her vital signs are stable, remained stable on 2.5 L of oxygen. - Physical Exam General: Alert, Oriented x3, Cooperative, - - Minimally shortness of breath. HEENT: Atraumatic, PERRLA, EOMI Oral: Moist Mucosa, No Gingival or Mucosal Lesions/ Ulcerations Neck: Supple, No JVD, Negative Carotid Bruits, Trachea Midline, Thyroid Normal Size and Texture Lungs: Clear to auscultation, No rhonchi, No wheeze, No rales, Diminished Cardiovascular: Regular rate, Regular Rhythm, Normal S1, Normal S2, PMI Normal Abdomen: Bowel Sounds Present, Soft, Non Tender, Non-Distended, No Hepato- splenomegaly Extremities: No clubbing, No cyanosis, Edema - Trace edema. Skin: No rashes, No breakdown Lymphatic: No Cervical, Supraclavicular, or Inguinal Adenopathy Neurological: Cranial nerves II-XII grossly intact, Neuro grossly intact Psych/Mental Status: Normal Affect, Appropriate Vital Signs Temp Pulse Resp BP Pulse Ox 97.3 F L 64 16 116/60 95 01/22/18 05:59 01/22/18 07:38 01/22/18 07:38 01/22/18 05:59 01/22/18 07:38 Oxygen Flow Rate (L/min) 3 Oxygen Delivery Method Nasal Cannula Weight: 209 lb 3.499 oz Body Mass Index (BMI) 32.4 Intake and Output for Last 24 Hours 01/20/18 01/21/18 01/22/18 23:59 23:59 23:59 Intake Total 1468 / 1468 852 / 852 10 / 10 Output Total 3000 / 3000 3400 / 3400 150 / 150 Balance -1532 / -1532 -2548 / -2548 -140 / -140 Microbiology Past 72 Hours 01/19/18 15:17 Influenza Types A,B Direct FA (BRYCE) - Final Mucosa - Nose Laboratory Tests Past 24 Hrs 01/20/18 01/22/18 01/22/18 06:20 05:50 05:50 WBC 5.6 RBC 3.11 L Hgb 9.4 L Hct 31.4 L MCV 101.0 H MCH 30.2 MCHC 29.9 L RDW 18.0 H RDW Differential 65.2 H Plt Count 174 MPV 8.9 Immature Gran % (Auto) 1.600 H Neut % (Auto) 69.3 Lymph % (Auto) 20.0 [place] % (Auto) 7.3 Eos % (Auto) 1.6 Baso % (Auto) 0.2 Absolute Neuts (auto) 3.9 Absolute Lymphs (auto) 1.12 Total Counted Not Reportable Differential Comment SCANNED Anisocytosis 3+ Macrocytosis 2+ PT 14.5 INR 1.1 APTT 41.6 H Sodium Potassium Chloride Carbon Dioxide Anion Gap BUN Creatinine Estim Creat Clear Calc Est GFR (MDRD) Af Amer Est GFR (MDRD) Non-Af BUN/Creatinine Ratio Glucose Hemoglobin A1c Calcium Hep Bs Antibody Non Reactive 01/22/18 01/22/18 05:50 05:50 WBC RBC Hgb Hct MCV MCH MCHC RDW RDW Differential Plt Count MPV Immature Gran % (Auto) Neut % (Auto) Lymph % (Auto) [place] % (Auto) Eos % (Auto) Baso % (Auto) Absolute Neuts (auto) Absolute Lymphs (auto) Total Counted Differential Comment Anisocytosis Macrocytosis PT INR APTT Sodium 141 Potassium 4.5 Chloride 101 Carbon Dioxide 35.0 H Anion Gap 5 BUN 38 H Creatinine 2.23 H Estim Creat Clear Calc 21.12 Est GFR (MDRD) Af Amer 28 L Est GFR (MDRD) Non-Af 23 L BUN/Creatinine Ratio 17.0 Glucose 181 H Hemoglobin A1c Pending Calcium 8.6 Hep Bs Antibody POC Glucose 01/22/18 01/21/18 01/21/18 06:51 22:10 17:32 POC Glucose 195 H 356 H 148 H 01/21/18 12:03 POC Glucose 163 H Medical Necessity - Tobacco Use Smoking Status: Former smoker Tobacco Use: Secondhand Assessment/Plan Active and Suspected Problems (Last Updated 01/20/18 @ 11:18 by Fahad Sesay MD) Problem with dialysis access (Acute) This is a 72 years old female patient presented to the emergency room because of shortness of breath at hemodialysis and she was sent to the ER for evaluation , found to have acute pulmonary edema and she was admitted with acute on chronic hypoxic and hypercapnic respiratory failure. #1 acute pulmonary edema: Patient has been on dialysis. Respiratory status stabilized. She remains on 3.5 L of oxygen which is at baseline at home, other vital signs are stable. She is on Lasix, metoprolol, aspirin and statins. Plan for placement for tunneled dialysis catheter today because of malfunctioning AV fistula. #2 acute on chronic hypoxic and hypercapnic respiratory failure: Secondary to above. Status post dialysis, respiratory status improved. Yesterday, she had an episode of shortness of breath and she was orthopneic during dialysis because she needed to lie flat. Today, she mentioned that her breathing is better when the bed is around 45?. She remained stable on 3.5 L of oxygen. #3 ESRD on hemodialysis: With malfunctioning AV fistula. Vascular surgery consulted, plan for insertion of tunneled dialysis catheter today. #4 hypertension: Blood pressure stable, continue Catapres, Lasix and metoprolol. #5 type 2 diabetes mellitus: Blood sugar stable, continue ADA diet, Accu-Cheks, insulin sliding scale, continue Levemir twice daily. #6 paroxysmal A. fib: Rate has been stable, continue amiodarone and metoprolol for rate control. She is not on anticoagulation. #7 COPD: Continue albuterol as needed, start DuoNeb every 6 hours. #8 DVT prophylaxis: Subcu heparin. Other chronic medical problems: #1 pulmonary hypertension. #2 scleroderma. #3 peripheral vascular disease. #4 history of cerebral hemorrhage, status post craniotomy. #5 chronic anemia. #6 hyperlipidemia. This note was generated with [employer] software. It may contain incorrect words, spelling, and punctuation that were not noted in checking the note before signing.
--- NOTE | 2018-01-22 08:59 | PCM.PROGNOTE ---
Patient Problems: Active and Suspected Problems (Last Updated 01/20/18 @ 11:18 by Fahad Sesay MD) Problem with dialysis access (Acute) Acute on chronic respiratory failure with hypoxia and hypercapnia (Acute) Subjective: The patient was seen and examined. She is resting in bed in no acute distress. Denies any shortness of breath at rest. Remains at baseline respiratory status, maintaining appropriate saturations on 3L of oxygen. Awaiting placement of tunneled dialysis catheter later this afternoon by Dr. Angeles. Plans for discharge after. - Physical Exam General: Alert, Oriented x3, Cooperative, No apparent distress, Well developed, Well nourished, - - Obese HEENT: Atraumatic, Normocephalic Oral: Moist Mucosa Neck: Supple, Trachea Midline Lungs: No rhonchi, No wheeze, No rales, Diminished Cardiovascular: Regular rate, Regular Rhythm, Normal S1, Normal S2 Abdomen: Bowel Sounds Present, Soft, Non Tender, Obese Extremities: No clubbing, No cyanosis, Edema - trace LE Skin: No rashes, - - CV catheter L chest w/mild erythema at insertion site Musculoskeletal: No Tenderness to Palpation of Joints or Extremities Lymphatic: No Cervical, Supraclavicular, or Inguinal Adenopathy Neurological: Neuro grossly intact Psych/Mental Status: Alert and oriented to time, place, person, mood and affect Vital Signs Temp Pulse Resp BP Pulse Ox 97.3 F L 64 16 116/60 95 01/22/18 05:59 01/22/18 07:38 01/22/18 07:38 01/22/18 05:59 01/22/18 07:38 Oxygen Flow Rate (L/min) 3 Oxygen Delivery Method Nasal Cannula Weight: 209 lb 3.499 oz Body Mass Index (BMI) 32.4 Intake and Output for Last 24 Hours 01/20/18 01/21/18 01/22/18 23:59 23:59 23:59 Intake Total 1468 / 1468 852 / 852 10 10 Output Total 3000 / 3000 3400 / 3400 150 / 150 Balance -1532 / -1532 -2548 / -2548 -140 / -140 Microbiology Past 72 Hours 01/19/18 15:17 Influenza Types A,B Direct FA (BRYCE) - Final Mucosa - Nose Laboratory Tests Past 24 Hrs 01/20/18 01/22/18 01/22/18 06:20 05:50 05:50 WBC 5.6 RBC 3.11 L Hgb 9.4 L Hct 31.4 L MCV 101.0 H MCH 30.2 MCHC 29.9 L RDW 18.0 H RDW Differential 65.2 H Plt Count 174 MPV 8.9 Immature Gran % (Auto) 1.600 H Neut % (Auto) 69.3 Lymph % (Auto) 20.0 [place] % (Auto) 7.3 Eos % (Auto) 1.6 Baso % (Auto) 0.2 Absolute Neuts (auto) 3.9 Absolute Lymphs (auto) 1.12 Total Counted Not Reportable Differential Comment SCANNED Anisocytosis 3+ Macrocytosis 2+ PT 14.5 INR 1.1 APTT 41.6 H Sodium Potassium Chloride Carbon Dioxide Anion Gap BUN Creatinine Estim Creat Clear Calc Est GFR (MDRD) Af Amer Est GFR (MDRD) Non-Af BUN/Creatinine Ratio Glucose Hemoglobin A1c Calcium Hep Bs Antibody Non Reactive 01/22/18 01/22/18 05:50 05:50 WBC RBC Hgb Hct MCV MCH MCHC RDW RDW Differential Plt Count MPV Immature Gran % (Auto) Neut % (Auto) Lymph % (Auto) [place] % (Auto) Eos % (Auto) Baso % (Auto) Absolute Neuts (auto) Absolute Lymphs (auto) Total Counted Differential Comment Anisocytosis Macrocytosis PT INR APTT Sodium 141 Potassium 4.5 Chloride 101 Carbon Dioxide 35.0 H Anion Gap 5 BUN 38 H Creatinine 2.23 H Estim Creat Clear Calc 21.12 Est GFR (MDRD) Af Amer 28 L Est GFR (MDRD) Non-Af 23 L BUN/Creatinine Ratio 17.0 Glucose 181 H Hemoglobin A1c 6.4 H Calcium 8.6 Hep Bs Antibody POC Glucose 01/22/18 01/21/18 01/21/18 06:51 22:10 17:32 POC Glucose 195 H 356 H 148 H 01/21/18 12:03 POC Glucose 163 H Medical Necessity - Tobacco Use Smoking Status: Former smoker Tobacco Use: Secondhand Assessment/Plan Active and Suspected Problems (Last Updated 01/20/18 @ 11:18 by Fahad Sesay MD) Problem with dialysis access (Acute) Acute on chronic respiratory failure with hypoxia and hypercapnia (Acute) RECOMMENDATIONS: 1. Hemodialysis per nephrology 2. Continue bronchodilators 3. Continue baseline BiPAP 15/11 at night and with naps 4. Continue basal insulin and sliding scale 5. Plans for tunneled dialysis catheter this afternoon 6. Okay to discharge from pulmonary perspective IMPRESSIONS: 1. Acute on chronic combined respiratory failure/end-stage COPD/pulmonary hypertension secondary to scleroderma Patient is not giving any prodromal symptoms consistent with a COPD exacerbation. Patient did miss hemodialysis this morning and does have increased infiltrates on chest x-ray. Patient treated with hemodialysis with significant improvement in overall condition. Will transition back to baseline diuretic therapy. Discontinue antibiotics and steroids as pneumonia would likely not get better this quickly. Transition back to baseline INES therapy. Wean oxygen as tolerated. Likely okay to discharge later today after tunneled catheter placement. 2. History of new onset atrial fibrillation with RVR Patient is in normal sinus rhythm at this time. Patient would likely benefit from right heart catheterization once euvolemic. 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 She follows with Dr. Carroll as an outpatient. 3. Hyperkalemia/CKD/morbid obesity/peripheral artery occlusive disease/crest variant of scleroderma/HTN/DM/INES/history of cerebral hemorrhage/anemia/stroke/HLD/neuropathic pain/vitamin D deficiency Complicates care, management, recovery, and prognosis. Renal is following. There was some clotting issues with current hemodialysis access, Dr. Angeles consulted and plans for tunneled catheter placement later this afternoon.
[2018-01-22] MEDS: Amiodarone 200 MG Tablet PO (09:16)
[2018-01-22] MEDS: Metoprolol(XL)Succ 25 MG Tablet PO (09:16)
--- NOTE | 2018-01-22 09:25 | PCM.PN.REN ---
Patient Problems: Active and Suspected Problems (Last Updated 01/20/18 @ 11:18 by Fahad Sesay MD) Problem with dialysis access (Acute) Objective: No complaints today. On NC at 3l/m Left IJ tunneled cath was dysfunctional during HD session yesterday. The plan is to change it today - Physical Exam General: Alert, Oriented x3 HEENT: Atraumatic Oral: Moist Mucosa Neck: Supple, No JVD, - - Left IJ TC Lungs: Diminished, Rhonchi Cardiovascular: Normal S1, Normal S2 Abdomen: Bowel Sounds Present, Soft, Non Tender Extremities: No clubbing, No cyanosis Skin: No rashes Lymphatic: No Cervical, Supraclavicular, or Inguinal Adenopathy Neurological: Cranial nerves II-XII grossly intact, Neuro grossly intact Psych/Mental Status: Normal Affect Vital Signs Temp Pulse Resp BP Pulse Ox 97.6 F L 65 24 H 135/60 H 95 01/22/18 09:02 01/22/18 09:16 01/22/18 09:02 01/22/18 09:02 01/22/18 09:02 Oxygen Flow Rate (L/min) 3.5 Oxygen Delivery Method Nasal Cannula Weight: 94.9 kg Body Mass Index (BMI) 32.4 Intake and Output for Last 24 Hours 01/20/18 01/21/18 01/22/18 23:59 23:59 23:59 Intake Total 1468 / 1468 852 / 852 10 / 10 Output Total 3000 / 3000 3400 / 3400 150 / 150 Balance -1532 / -1532 -2548 / -2548 -140 / -140 Microbiology Past 72 Hours 01/19/18 15:17 Influenza Types A,B Direct FA (BRYCE) - Final Mucosa - Nose Laboratory Tests Past 24 Hrs 01/20/18 01/22/18 01/22/18 06:20 05:50 05:50 WBC 5.6 RBC 3.11 L Hgb 9.4 L Hct 31.4 L MCV 101.0 H MCH 30.2 MCHC 29.9 L RDW 18.0 H RDW Differential 65.2 H Plt Count 174 MPV 8.9 Immature Gran % (Auto) 1.600 H Neut % (Auto) 69.3 Lymph % (Auto) 20.0 [place] % (Auto) 7.3 Eos % (Auto) 1.6 Baso % (Auto) 0.2 Absolute Neuts (auto) 3.9 Absolute Lymphs (auto) 1.12 Total Counted Not Reportable Differential Comment SCANNED Anisocytosis 3+ Macrocytosis 2+ PT 14.5 INR 1.1 APTT 41.6 H Sodium Potassium Chloride Carbon Dioxide Anion Gap BUN Creatinine Estim Creat Clear Calc Est GFR (MDRD) Af Amer Est GFR (MDRD) Non-Af BUN/Creatinine Ratio Glucose Hemoglobin A1c Calcium Hep Bs Antibody Non Reactive 01/22/18 01/22/18 05:50 05:50 WBC RBC Hgb Hct MCV MCH MCHC RDW RDW Differential Plt Count MPV Immature Gran % (Auto) Neut % (Auto) Lymph % (Auto) [place] % (Auto) Eos % (Auto) Baso % (Auto) Absolute Neuts (auto) Absolute Lymphs (auto) Total Counted Differential Comment Anisocytosis Macrocytosis PT INR APTT Sodium 141 Potassium 4.5 Chloride 101 Carbon Dioxide 35.0 H Anion Gap 5 BUN 38 H Creatinine 2.23 H Estim Creat Clear Calc 21.12 Est GFR (MDRD) Af Amer 28 L Est GFR (MDRD) Non-Af 23 L BUN/Creatinine Ratio 17.0 Glucose 181 H Hemoglobin A1c 6.4 H Calcium 8.6 Hep Bs Antibody POC Glucose 01/22/18 01/21/18 01/21/18 06:51 22:10 17:32 POC Glucose 195 H 356 H 148 H 01/21/18 12:03 POC Glucose 163 H Medical Necessity - Tobacco Use Smoking Status: Former smoker Tobacco Use: Secondhand Assessment/Plan Active and Suspected Problems (Last Updated 01/20/18 @ 11:18 by Fahad Sesay MD) Problem with dialysis access (Acute) 1- ESRD on MWF HD access is IJ tunneled cath which is not functioning appropriately Last HD session 01/21 with 3 L UF Next HD session 01/23 2- acute hypoxemic respiratory on chronic respiratory failure due to pulmonary edema/COPD exacerbation Better with HD Keep O>I COPD management as per the primary service 3- HD access dysfunction: Left IJ tunneled cath will be changes today by Dr. Angeles Will continue to follow Nidia Jones MD [phone]
[2018-01-22 12:10] LABS: Bedside Glucose 269 mg/dL (70-110)
--- NOTE | 2018-01-22 12:45 | RAD_ITS ---
STUDY: X-RAY CHEST REASON FOR EXAM: Female, 72 years old. Line placement. TECHNIQUE: Single AP portable view of the chest. COMPARISON: Comparison is made with prior study dated January 19, 2018. FINDINGS: A right-sided double-lumen catheter has been placed. The tip is at the junction of the superior vena cava and right atrium. The left-sided double-lumen catheter has been removed. There is evidence of vascular congestion and CHF. Small left pleural effusion. Normal size heart. Normal mediastinum and jose f. Normal visualized pulmonary arteries. Normal visualized aortic arch and descending thoracic aorta. There are diffuse degenerative changes of the visualized thoracic spine. Prior vertebroplasty of the L1 vertebrae. There is degenerative osteoarthritis of the bilateral shoulders. There is no demonstrated abnormality of the visualized soft tissue structures of the upper abdomen. RAD/Chest 1 View (Portable) IMPRESSION: The tip of the right double-lumen catheter is at the junction of the superior vena cava and right atrium. CHF. Electronically Signed: Brett Arcos MD at 15:06 EDT Tel [phone], Service support ,
[2018-01-22] MEDS: Bupivacaine Mpf 0.5% 30 ML VIAL (13:25)
[2018-01-22] MEDS: Heparin 10,000 UNITS/10 ML Vial 10000 UNITS (13:25)
--- NOTE | 2018-01-22 13:27 | PCM.OPRPT ---
Problem List (1) Problem with dialysis access Status: Acute Qualifiers: Encounter type: initial encounter Qualified Code(s): T82.898A - Other specified complication of vascular prosthetic devices, implants and grafts, initial encounter Report of Operation Date of Procedure: 01/22/18 Pre-Operative Diagnosis: Malfunction left internal jugular tunneled dialysis catheters Post-Operative Diagnosis: Same Surgery/Procedure Performed:: Right internal jugular 19 cm pre-curved palindrome catheter placement. Reference number [id number] lot #[id number]. Removal left internal tunneled dialysis catheters Description of Surgical Findings:: 72-year-old female was taken the operating room. She was placed on the table. She underwent monitored anesthesia care local anesthetic. Ancef 2 g given intravenous preoperatively. Bilateral neck and chest were sterilely prepped and draped in routine fashion. Ultrasound was used to identify the right internal jugular vein. 1% lidocaine mixed 50-50 with 0.5% Marcaine was used as local anesthetic throughout the procedure total of 18 cc was used. Local was instilled under ultrasound guidance. Micropuncture needle was inserted in the right internal jugular vein under ultrasound guidance. Micropuncture wire inserted. Fluoroscopy demonstrated good positioning. Then local was instilled down upon the chest wall. An appropriate exit site was selected. The 19 cm pre-curved palindrome catheter was tunneled from the chest to the neck. Then a micropuncture sheath was placed over the wire. That was upgraded to an 035 J-wire. That was serially dilated. The sheath dilator was inserted as unit under fluoroscopic control. The dilator wire removed. The catheter was advanced through the sheath. The sheath was split the catheter is in good position. It aspirated easily. Fluoroscopy demonstrated excellent positioning. It was secured to skin with interrupted 3-0 nylon. The neck site was closed with interrupted 5-0 Vicryl at that point I did encourage self-inflicted needle puncture to a finger. Gloves were changed. Sterile dressings were applied. Attention was now drawn to the left IJ. Local was instilled at the exit site. The exit site incision was enlarged. Sharp and blunt dissection was used to identify the cuff. The cuff was released. With continuous pressure held upon the tunnel site the catheter was removed. Subsequently bilaterally sterile dressings were applied. A Steri-Strip was applied to the right neck and Telfa OpSite. A silver impregnated dressing was placed at the exit site on the right and OpSite dressing. OpSite dressing placed on the left. Sponge instrument and needle counts were reported the surgeon for correct. Blood loss was minimal. She tired procedure well taken to the recovery area in satisfactory condition. Stat portable chest x-ray is pending. Anoop Angeles M.D., F.A.C.S. Type of Anesthesia:: Local MAC Anesthesiologist: Carmen Montemayor
--- NOTE | 2018-01-22 13:33 | OP.PCM_ITS ---
Problem List (1) Problem with dialysis access Status: Acute Qualifiers: Encounter type: initial encounter Qualified Code(s): T82.898A - Other specified complication of vascular prosthetic devices, implants and grafts, initial encounter Report of Operation Date of Procedure: 01/22/18 Pre-Operative Diagnosis: Malfunction left internal jugular tunneled dialysis catheters Post-Operative Diagnosis: Same Surgery/Procedure Performed:: Right internal jugular 19 cm pre-curved palindrome catheter placement. Reference number [id number] lot #[id number]. Removal left internal tunneled dialysis catheters Description of Surgical Findings:: 72-year-old female was taken the operating room. She was placed on the table. She underwent monitored anesthesia care local anesthetic. Ancef 2 g given intravenous preoperatively. Bilateral neck and chest were sterilely prepped and draped in routine fashion. Ultrasound was used to identify the right internal jugular vein. 1% lidocaine mixed 50-50 with 0.5% Marcaine was used as local anesthetic throughout the procedure total of 18 cc was used. Local was instilled under ultrasound guidance. Micropuncture needle was inserted in the right internal jugular vein under ultrasound guidance. Micropuncture wire inserted. Fluoroscopy demonstrated good positioning. Then local was instilled down upon the chest wall. An appropriate exit site was selected. The 19 cm pre -curved palindrome catheter was tunneled from the chest to the neck. Then a micropuncture sheath was placed over the wire. That was upgraded to an 035 J- wire. That was serially dilated. The sheath dilator was inserted as unit under fluoroscopic control. The dilator wire removed. The catheter was advanced through the sheath. The sheath was split the catheter is in good position. It aspirated easily. Fluoroscopy demonstrated excellent positioning. It was secured to skin with interrupted 3-0 nylon. The neck site was closed with interrupted 5-0 Vicryl at that point I did encourage self- inflicted needle puncture to a finger. Gloves were changed. Sterile dressings were applied. Attention was now drawn to the left IJ. Local was instilled at the exit site. The exit site incision was enlarged. Sharp and blunt dissection was used to identify the cuff. The cuff was released. With continuous pressure held upon the tunnel site the catheter was removed. Subsequently bilaterally sterile dressings were applied. A Steri-Strip was applied to the right neck and Telfa OpSite. A silver impregnated dressing was placed at the exit site on the right and OpSite dressing. OpSite dressing placed on the left. Sponge instrument and needle counts were reported the surgeon for correct. Blood loss was minimal. She tired procedure well taken to the recovery area in satisfactory condition. Stat portable chest x-ray is pending. Anoop Angeles M.D., F.A.C.S. Type of Anesthesia:: Local MAC Anesthesiologist: Carmen Montemayor
--- NOTE | 2018-01-22 15:03 | NURSING ---
CALLED DR ABRAHAM TO CLARIFY DIET ORDER AND OK TO GIVE MEDS. DR ABRAHAM STATES TO KEEP NPO AND NO PO MEDS AT THIS TIME UNTIL HE REVIEWS POST OP FILMS. DR GALINDO PRESENT IN ROOM AND STATES TO OBSERVE PT FOR A FEW HOURS AND CONFIRM W/DR ABRAHAM THAT PT IS OK TO DC HOME.
--- NOTE | 2018-01-22 15:11 | DCINST_ITS ---
- Discharge Diagnoses Current Active Problems: Current Active and Chronic Problems (Last Updated 01/22/18 @ 10:02 by HILARY NormanC) Acute on chronic respiratory failure with hypoxia and hypercapnia (Acute) Problem with dialysis access (Acute) ESRD (end stage renal disease) on dialysis (Chronic) Paroxysmal A-fib (Chronic) Valvular heart disease (Chronic) End stage COPD (Chronic) Pulmonary hypertension (Chronic) HTN (hypertension) (Chronic) 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) Obesity (BMI 30.0-34.9) (Chronic) Obstructive sleep apnea (Chronic) Untreated Type 2 diabetes mellitus (Chronic) Anemia (Chronic) Aortic stenosis, mild (Chronic) Mitral stenosis (Chronic) mild Hyperlipidemia (Chronic) Vitamin D deficiency (Chronic) You will use the following diet at home:: Calorie/Carbohydrate Controlled ( specify 1200, 1400, etc) - 1800 travis., Cardiac, Renal (restricted protein/sodium) Your food should be the consistency of: Regular Discharge Activity: Return to Normal Activity Weight Bearing Status: Weight bearing as tolerated Call your doctor if you observe: Fever of 101 or Higher, Shortness of breath, Dizziness, Fainting spells, Chest pain, Increased palpitations (irregular heartbeat), Uncontrolled pain Additional Instructions: Use oxygen to keep O2 sat between 88-92%. Allergies/Adverse Reactions: Allergies No Known Allergies Allergy (Verified 01/01/18 12:32) Medications to take at Discharge Atorvastatin Calcium [Lipitor] 40 mg PO QHS 11/27/17 Clonidine HCl 0.1 mg PO TID 11/27/17 Ergocalciferol [Vitamin D] 50,000 unit PO QMONTH 11/27/17 Furosemide [Lasix] 60 mg PO BID 11/27/17 Gabapentin [Neurontin] 300 mg PO QHS 11/27/17 Insulin Aspart [Novolog Flexpen] See Protocol SC TIDCM 11/27/17 Iron Polysaccharide Complex [Ferrex 150] 150 mg PO DAILYCM 11/27/17 Metoprolol Succinate [Toprol Xl] 25 mg PO DAILY 11/27/17 Pantoprazole Sodium [Protonix] 40 mg PO DAILY 11/27/17 Amiodarone HCl [Cordarone] 200 mg PO DAILY 01/19/18 Aspirin E.C. [Ecotrin] 325 mg PO DAILY@0800 01/19/18 Insulin Glargine [Lantus SoloStar Pen] 39 units SC BID 01/19/18 Primary Care Physician: Mat Duffy MD [Primary Care Provider] - Please follow up with your Primary Care Physician in: 2 weeks. Please Follow Up With: Trell Freeman MD When: Please call his office Please Follow Up With: Juan Daniel Raymundo MD
--- NOTE | 2018-01-22 15:26 | NURSING ---
[facility] notified of discharge this evening and need for usual dialysis appointment on Friday. Requested CXR be faxed, report faxed.
[2018-01-22 15:44] LABS: HIV - WCH Non-Reactive (Nonreactive)
[2018-01-22] MEDS: Aspirin E.C. 325 MG Tablet PO (16:53)
[2018-01-22] MEDS: Iron Polysaccharide Complex 150 MG CAPSULE PO (16:53)
[2018-01-22] MEDS: Pantoprazole Sodium 40 MG Tablet PO (16:53)
[2018-01-22] MEDS: Furosemide 20 MG Tablet 60 MG PO (16:53)
[2018-01-22 17:21] LABS: Bedside Glucose 79 mg/dL (70-110)
--- NOTE | 2018-01-22 19:07 | NURSING ---
DC BP RANGING BETWEEN 182/78 AND 160/80, PT ASYMPTOMATIC. TEXT SENT TO DR GALINDO TO NOTIFY-DID NOT RECEIVE A RESPONSE. STATES PT BP OCCASIONALLY ELEVATED AT HOME-HAS BP CUFF TO MONITOR. ENCOURAGED TO CALL EMS FOR CONTINUED ELEVATED BP, SYMPTOMS AT HOME. PT AND AGREEABLE TO GOING HOME AND MONITORING BP AT HOME. DENY FURTHER NEEDS. ESCORTED OUT VIA W/C BY SENIOR INTERACTION DESIGNER
[2018-01-23 03:07] LABS: HEPATITIS B SURFACE AG Negative (Negative)
[2018-01-23 11:15] LABS: Hep B Surface Antibodies Non Reactive (.); Hep C Antibodies 0.1 s/co ratio (0.0-0.9); Hepatitis B Core Ab Total Negative (Negative)
--- NOTE | 2018-01-23 11:50 | PCM.DC.SUM ---
Discharge Date and Diagnosis Date of Admission: 01/19/18 Date of Discharge: 01/22/18 - Primary Discharge Diagnosis #1 acute pulmonary edema. #2 acute on chronic hypoxic and hypercapnic respiratory failure. #3 malfunctioning left internal jugular tunneled dialysis catheter, placement of right internal jugular dialysis catheter. - Secondary Discharge Diagnosis Chronic Problems (Last Updated 01/22/18 @ 10:02 by Viviana Childers, CALCULUS TEACHER-C) ESRD (end stage renal disease) on dialysis (Chronic) Rheumatic mitral insufficiency (Chronic) Paroxysmal A-fib (Chronic) Valvular heart disease (Chronic) End stage COPD (Chronic) Pulmonary hypertension (Chronic) HTN (hypertension) (Chronic) 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) S/P craniotomy (Chronic) For intracerebral hemorrhage Obesity (BMI 30.0-34.9) (Chronic) Morbid obesity (Chronic) Obstructive sleep apnea (Chronic) Untreated Type 2 diabetes mellitus (Chronic) History of cerebral hemorrhage (Chronic) Anemia (Chronic) Aortic stenosis, mild (Chronic) Mitral stenosis (Chronic) mild Stroke (Chronic) Hyperlipidemia (Chronic) Vitamin D deficiency (Chronic) Neuropathic pain (Chronic) Hospital Course and Treatment Imaging Results: Clinical Impression(s) from Imaging Studies Chest X-Ray 01/19/18 08:23 IMPRESSION: No plain film evidence of abnormality in the visualized dialysis catheter Increase in interstitial edema since the previous study, follow-up recommended to assure resolution Persistent plain film evidence of chronic bronchitis Stable cardiomegaly Electronically Signed: Delonte Tang MD at 8:58 EDT , Service support , Chest X-Ray 01/22/18 12:45 IMPRESSION: The tip of the right double-lumen catheter is at the junction of the superior vena cava and right atrium. CHF. Electronically Signed: Brett Arcos MD at 15:06 EDT Tel [phone], Service support , Dr. Jones, nephrology. Dr. Angeles, general surgery. Operations: None Procedures: - - Removal of left internal jugular tunneled dialysis catheter and placement of right internal jugular tunneled dialysis catheter. Summary of Care Provided: The patient is a 72 year old F admitted because of worsening shortness of breath when she was on hemodialysis at the dialysis center and she was sent to the emergency room and she was found to have acute pulmonary edema that was complicated by acute on chronic hypoxic and hypercapnic respiratory failure. Patient underwent urgent hemodialysis for acute pulmonary edema and her respiratory status improved. Nephrology consulted and she was continued on her hemodialysis as per nephrology recommendations. On admission, she was found to have acute on chronic hypoxic and hypercapnic respiratory failure as well as mild respiratory acidosis due to CO2 retention. Her pH on admission was 7.24, PCO2 of 75 and PO2 of 64. With dialysis, her respiratory status improved and she was able to go back on oxygen by nasal cannula at 3.5 L which is her baseline at home. During the dialysis, that graphic arts technician noticed that the left IJ tunneled catheter is not working properly. Dr. Angeles consulted and he recommended to remove the left internal jugular dialysis catheter and to place another tunneled catheter. Patient underwent removal of the left internal jugular catheter and placement of tunneled dialysis catheter to the right internal jugular vein. After the placement of the tunneled catheter, patient did okay and chest x-ray after the procedure showed no evidence of pneumothorax, it does show pulmonary vascular congestion which is chronic. Patient discharged home in a stable medical condition, discharged on the same medication that he was taking before admission without any changes, continued on oxygen at 3.5 L, recommended follow-up with PCP in 2 weeks and follow-up with nephrology as scheduled. Discharge Activity: Return to Normal Activity Weight Bearing Status: Weight bearing as tolerated Call your doctor if you observe: Fever of 101 or Higher, Shortness of breath, Dizziness, Fainting spells, Chest pain, Increased palpitations (irregular heartbeat), Uncontrolled pain Home Medications: Medications to take at Discharge Atorvastatin Calcium [Lipitor] 40 mg PO QHS 11/27/17 Clonidine HCl 0.1 mg PO TID 11/27/17 Ergocalciferol [Vitamin D] 50,000 unit PO QMONTH 11/27/17 Furosemide [Lasix] 60 mg PO BID 11/27/17 Gabapentin [Neurontin] 300 mg PO QHS 11/27/17 Insulin Aspart [Novolog Flexpen] See Protocol SC TIDCM 11/27/17 Iron Polysaccharide Complex [Ferrex 150] 150 mg PO DAILYCM 11/27/17 Metoprolol Succinate [Toprol Xl] 25 mg PO DAILY 11/27/17 Pantoprazole Sodium [Protonix] 40 mg PO DAILY 11/27/17 Amiodarone HCl [Cordarone] 200 mg PO DAILY 01/19/18 Aspirin E.C. [Ecotrin] 325 mg PO DAILY@0800 01/19/18 Insulin Glargine [Lantus SoloStar Pen] 39 units SC BID 01/19/18 Primary Care Physician: Mat Duffy MD [Primary Care Provider] - Please follow up with your Primary Care Physician in: 2 weeks. Please Follow Up With: Trell Freeman MD When: Please call his office Please Follow Up With: Juan Daniel Raymundo MD Disposition: Home Minutes spent on discharge:: 32 Patient Condition:: Stable Medical Necessity - Tobacco Use Smoking Status: Former smoker Tobacco Use: Secondhand Meaningful Use Info Meaningful Use Diagnoses (Choose all that apply): None applicable Code Visit Inpatient E&M: 92831 Disch Hosp
--- NOTE | 2018-01-23 11:58 | DS.PCM_ITS ---
Discharge Date and Diagnosis Date of Admission: 01/19/18 Date of Discharge: 01/22/18 - Primary Discharge Diagnosis #1 acute pulmonary edema. #2 acute on chronic hypoxic and hypercapnic respiratory failure. #3 malfunctioning left internal jugular tunneled dialysis catheter, placement of right internal jugular dialysis catheter. - Secondary Discharge Diagnosis Chronic Problems (Last Updated 01/22/18 @ 10:02 by Vivinaa Childers, [employer]) ESRD (end stage renal disease) on dialysis (Chronic) Rheumatic mitral insufficiency (Chronic) Paroxysmal A-fib (Chronic) Valvular heart disease (Chronic) End stage COPD (Chronic) Pulmonary hypertension (Chronic) HTN (hypertension) (Chronic) 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) S/P craniotomy (Chronic) For intracerebral hemorrhage Obesity (BMI 30.0-34.9) (Chronic) Morbid obesity (Chronic) Obstructive sleep apnea (Chronic) Untreated Type 2 diabetes mellitus (Chronic) History of cerebral hemorrhage (Chronic) Anemia (Chronic) Aortic stenosis, mild (Chronic) Mitral stenosis (Chronic) mild Stroke (Chronic) Hyperlipidemia (Chronic) Vitamin D deficiency (Chronic) Neuropathic pain (Chronic) Hospital Course and Treatment Imaging Results: Clinical Impression(s) from Imaging Studies Chest X-Ray 01/19/18 08:23 IMPRESSION: No plain film evidence of abnormality in the visualized dialysis catheter Increase in interstitial edema since the previous study, follow-up recommended to assure resolution Persistent plain film evidence of chronic bronchitis Stable cardiomegaly Electronically Signed: Delonte Tang MD at 8:58 EDT , Service support , Chest X-Ray 01/22/18 12:45 IMPRESSION: The tip of the right double-lumen catheter is at the junction of the superior vena cava and right atrium. CHF. Electronically Signed: Brett Arcos MD at 15:06 EDT Tel [phone], Service support , Dr. Jones, nephrology. Dr. Angeles, general surgery. Operations: None Procedures: - - Removal of left internal jugular tunneled dialysis catheter and placement of right internal jugular tunneled dialysis catheter. Summary of Care Provided: The patient is a 72 year old F admitted because of worsening shortness of breath when she was on hemodialysis at the dialysis center and she was sent to the emergency room and she was found to have acute pulmonary edema that was complicated by acute on chronic hypoxic and hypercapnic respiratory failure. Patient underwent urgent hemodialysis for acute pulmonary edema and her respiratory status improved. Nephrology consulted and she was continued on her hemodialysis as per nephrology recommendations. On admission, she was found to have acute on chronic hypoxic and hypercapnic respiratory failure as well as mild respiratory acidosis due to CO2 retention. Her pH on admission was 7.24, PCO2 of 75 and PO2 of 64. With dialysis, her respiratory status improved and she was able to go back on oxygen by nasal cannula at 3.5 L which is her baseline at home. During the dialysis, that profile grinder technician noticed that the left IJ tunneled catheter is not working properly. Dr. Angeles consulted and he recommended to remove the left internal jugular dialysis catheter and to place another tunneled catheter. Patient underwent removal of the left internal jugular catheter and placement of tunneled dialysis catheter to the right internal jugular vein. After the placement of the tunneled catheter, patient did okay and chest x-ray after the procedure showed no evidence of pneumothorax, it does show pulmonary vascular congestion which is chronic. Patient discharged home in a stable medical condition, discharged on the same medication that he was taking before admission without any changes, continued on oxygen at 3.5 L, recommended follow-up with PCP in 2 weeks and follow-up with nephrology as scheduled. Discharge Activity: Return to Normal Activity Weight Bearing Status: Weight bearing as tolerated Call your doctor if you observe: Fever of 101 or Higher, Shortness of breath, Dizziness, Fainting spells, Chest pain, Increased palpitations (irregular heartbeat), Uncontrolled pain Home Medications: Medications to take at Discharge Atorvastatin Calcium [Lipitor] 40 mg PO QHS 11/27/17 Clonidine HCl 0.1 mg PO TID 11/27/17 Ergocalciferol [Vitamin D] 50,000 unit PO QMONTH 11/27/17 Furosemide [Lasix] 60 mg PO BID 11/27/17 Gabapentin [Neurontin] 300 mg PO QHS 11/27/17 Insulin Aspart [Novolog Flexpen] See Protocol SC TIDCM 11/27/17 Iron Polysaccharide Complex [Ferrex 150] 150 mg PO DAILYCM 11/27/17 Metoprolol Succinate [Toprol Xl] 25 mg PO DAILY 11/27/17 Pantoprazole Sodium [Protonix] 40 mg PO DAILY 11/27/17 Amiodarone HCl [Cordarone] 200 mg PO DAILY 01/19/18 Aspirin E.C. [Ecotrin] 325 mg PO DAILY@0800 01/19/18 Insulin Glargine [Lantus SoloStar Pen] 39 units SC BID 01/19/18 Primary Care Physician: Mat Duffy MD [Primary Care Provider] - Please follow up with your Primary Care Physician in: 2 weeks. Please Follow Up With: Trell Freeman MD When: Please call his office Please Follow Up With: Juan Daniel Raymundo MD Disposition: Home Minutes spent on discharge:: 32 Patient Condition:: Stable Medical Necessity - Tobacco Use Smoking Status: Former smoker Tobacco Use: Secondhand Meaningful Use Info Meaningful Use Diagnoses (Choose all that apply): None applicable Code Visit Inpatient E&M: 53787 Disch Hosp
--- NOTE | 2018-01-27 15:32 | CASEMGMT ---
RN CM DISCHARGE F/U PHONE CALLS THIS RN RO ATTEMPTED TO REACH PT ON 01/23 AND 01/27 FOR F/U CALL WITHOUT SUCCESS. THERE WAS NO ANSWER AND NO VOICEMAIL IS SET UP TO LEAVE A MESSAGE AT THIS TIME. SSTATEN ELI STARR
== END 2018-01-22 19:11 | disposition home or self-care (01) | DRG 189 ==
LOC: ED 09:25 → ICU 14:43 → PCU 01-20 15:42
PROVIDERS: Surgery; Admitting Provider Internal Medicine; Emergency Provider Emergency Medicine; Family Provider Internal Medicine; PCP Internal Medicine; Visit Provider Hospitalist
PROC: 0JH63XZ Insertion of Tunneled Vascular Access Device into Chest Subcutaneous Tissue and Fascia, Percutaneous Approach (ICD-10-PCS; principal; 2018-01-22 14:45)
DX: J96.21 Acute and chronic respiratory failure with hypoxia (principal); N18.6 End stage renal disease; I13.2 Hypertensive heart and chronic kidney disease with heart failure and with stage 5 chronic kidney disease, or end stage renal disease; T82.898A Other specified complication of vascular prosthetic devices, implants and grafts, initial encounter; Z99.81 Dependence on supplemental oxygen; Z99.2 Dependence on renal dialysis; I48.0 Paroxysmal atrial fibrillation; E11.22 Type 2 diabetes mellitus with diabetic chronic kidney disease; E78.5 Hyperlipidemia, unspecified; E55.9 Vitamin D deficiency, unspecified; J96.22 Acute and chronic respiratory failure with hypercapnia; I50.9 Heart failure, unspecified; Z79.4 Long term (current) use of insulin; I27.20 Pulmonary hypertension, unspecified; G62.9 Polyneuropathy, unspecified; Z77.22 Contact with and (suspected) exposure to environmental tobacco smoke (acute) (chronic); M34.1 CR(E)ST syndrome; G47.33 Obstructive sleep apnea (adult) (pediatric); Z68.32 Body mass index [BMI] 32.0-32.9, adult; D64.9 Anemia, unspecified; Z86.79 Personal history of other diseases of the circulatory system
CPT/HCPCS: 36415; 36600; 71045; 76000; 80048; 82803; 82962; 83036; 84484; 85025; 85610; 85730; 86703; 86704; 86706; 86803; 87340; 87641; 87804; 90937; 93005; 94002; 94003; 94640; 97162; 97165; 99285; J1756; J2997; J7030; A4216; C1750; G0257; J1940

== ENCOUNTER → 2018-02-26 13:06 | Outpatient (CLI) | payer MEDICARE, SELFPAY ==
--- NOTE | 2018-02-26 13:08 | VDUE_ITS ---
Reason For Study: pre-op, stage 4 renal failure Right Arm Left Arm Right Cephalic Vein at the shoulder Left Cephalic Vein at the shoulder measures .449 x .440 cm. measures .379 x .365 cm. Right Cephalic Vein mid bicep measures .506 Left Cephalic Vein at mid bicep x .448 cm. measures .396 x .372 cm. Right Cephalic Vein above antecub Left Cephalic Vein above antecub measures .639 x .686 cm. measures .546 x .564 cm. Right Cephalic Vein below antecub Left Cephalic Vein below antecub measures .313 x .320 cm. measures .319 x .326 cm. Right Cephalic Vein in the forearm Left Cephalic Vein in the forearm measures .253 x .252 cm. measures .280 x .299 cm. Right Cephalic Vein at the wrist Left Cephalic Vein at the wrist measures .193 x .212 cm. measures .227 x .206 cm. Right cephalic vein is compressible. Left cephalic vein is compressible. Right Basilic Vein at the origin Basilic vein at origin measures .458 x .465 measures .406 x .400 cm. cm. Right Basilic Vein above antecub Basilic vein above antecub measures .431 measures .604 x .544 cm. x .433 cm. Right Basilic Vein below antecub Basilic vein below antecub measures .199 measures .273 x .286 cm. x .193 cm. Right Basilic Vein in the forearm Basilic vein in the forearm measures .174 measures .161 x .199 cm. x .153 cm. Right Basilic Vein at the wrist Basilic vein at the wrist measures .166 measures .206 x .213 cm. x .166 cm. Right basilic vein is compressible. Left basilic vein is compressible. Brachial artery .546 x .585 cm. Brachial artery .347 x .306 cm. Brachial artery 57.8 cm/s. Brachial artery 58.9 cm/s. Radial artery .252 c .258 cm. Radial artery .312 x .289cm. Radial artery 76.2 cm/s. Radial artery 60.5cm/s. < Interpretation Summary Patent and compressible bilateral upper extremity cephalic and basilic veins with dimensions as noted. Normal flow bilateral brachial and radial arteries. Ordering Physician: Anoop Angeles Referring Physician: Anoop Angeles Performed By: Durga Tripp RVT
== END ==
PROVIDERS: Family Provider Internal Medicine; PCP Internal Medicine; Visit Provider Surgery
DX: Z01.818 Encounter for other preprocedural examination (principal); N18.4 Chronic kidney disease, stage 4 (severe)
CPT/HCPCS: 93970

== ENCOUNTER 2018-03-01 09:35 | Inpatient (IN) | payer MEDICARE, SELFPAY ==
[2018-03-01] VITALS (19 sets, daily range): BP systolic 114–161; BP diastolic 55–87; PULSE 44–110; RESP 12–28; TEMP 36.6–36.8; O2SAT 91–99; BMI 35.4
--- NOTE | 2018-03-01 09:38 | RAD_ITS ---
STUDY: X-RAY CHEST REASON FOR EXAM: Female, 72 years old. Chest pain TECHNIQUE: View of the chest was obtained COMPARISON: January 22, 2018 FINDINGS: Cardiomegaly with mild pulmonary vascular congestion seen. Prominent right hilar shadow again seen. Dialysis catheter again noted. Ill-defined nodular density in the left lung more previous exam. No lung consolidation. No pneumothorax. Osseous structures remain unchanged IMPRESSION: No significant change in overall lung finding since previous exam. Right-sided dialysis catheter with its tip in the right atrium. Electronically Signed: Javad Jalloh, at 10:05 EDT Tel , Service support , RAD/Chest 1 View (Portable)
--- NOTE | 2018-03-01 09:38 | EKG12_ITS ---
Test Reason : LOC Blood Pressure : / mmHG Vent. Rate : 070 BPM Atrial Rate : 070 BPM P-R Int : 172 ms QRS Dur : 100 ms QT Int : 442 ms P-R-T Axes : 064 -15 055 degrees QTc Int : 477 ms Normal sinus rhythm Low voltage QRS (limb leads) Poor R wave progression Confirmed by JOSE ALEJANDRO LOONEY, MIKE ([id number]), editorial clerk HONORIO SHEFFIELD ([id number]) on 03/04/2018 2:39:19 PM Referred By: Anoop Angeles Confirmed By:MIKE BLOUNT MD
--- NOTE | 2018-03-01 09:39 | CT_ITS ---
STUDY: CT BRAIN WITHOUT CONTRAST REASON FOR EXAM: Female, 72 years old. Altered level of consciousness RADIATION DOSAGE (If Supplied By Facility): CTDIvol = ( 44.99 ) mGy, DLP = ( 745.49 ) mGycm TECHNIQUE: Transaxial CT imaging of the brain was performed without administration of intravenous contrast material. Individualized dose optimization techniques were used for this CT. COMPARISON: CT examination of head from July 07, 2017 FINDINGS: Left-sided occipital craniotomy changes noted with encephalomalacia and gliosis in the left cerebellum. Residual recurrent disease cannot be excluded from this exam. Helical ectatic appearance of the vertebral artery Small low-attenuation area in the right superior frontal lobe noted which was present on previous examination possibly relate with partial replacement or chronic ischemia. Few scattered foci low-attenuation in the periventricular and subcortical white matter which are essentially nonspecific in imaging appearance however likely related with chronic small vessel disease. Intracranial atherosclerotic vascular calcifications. Mucosal thickening of the ethmoid air cells and the sphenoid sinus likely related with chronic sinusitis. IMPRESSION: No evidence for acute intracranial hemorrhage, mass effect or acute large territory infarcts. Postsurgical changes in the left cerebellum with encephalomalacia and gliosis. Mucosal thickening of the ethmoid air cells and the sphenoid sinus likely related with chronic sinusitis. Electronically Signed: Javad Jalloh, at 11:00 EDT Tel , Service support , CT/Brain/Head without Contrast
--- NOTE | 2018-03-01 09:40 | ED.VIS.GEN ---
History of Present Illness Chief Complaint: Alt LOC Informant: Patient, Family, Head Baggage Porter Limited: Stupor Onset: Hours - 6-7 Context: - - unk Timing: Continuous Associated Symptoms: cp/sob Narrative: Her and paramedics, chest pain or shortness of breath that started this morning, worsening. In and out of consciousness in route per EMS. Even prior to that, pulse ox was 95% on room air at home. History of heart disease, CHF, stroke, ESRD on dialysis, last session was 2 days ago and has been compliant. Very limited history due to level of consciousness. states she has had no narcotic pain medication, but last night she did take a muscle relaxer. He does not know any other details about it. - Past Medical History (1) Anemia Status: Chronic (2) Aortic stenosis, mild Status: Chronic (3) CREST variant of scleroderma Status: Chronic (4) ESRD (end stage renal disease) on dialysis Status: Chronic (5) End stage COPD Status: Chronic (6) HTN (hypertension) Status: Chronic (7) History of cerebral hemorrhage Status: Chronic (8) Hyperlipidemia Status: Chronic (9) Mitral stenosis Status: Chronic Comment: mild (10) Morbid obesity Status: Chronic (11) Neuropathic pain Status: Chronic (12) Obstructive sleep apnea Status: Chronic Comment: Untreated (13) Paroxysmal A-fib Status: Chronic (14) Peripheral arterial occlusive disease Status: Chronic (15) Pulmonary hypertension Status: Chronic (16) Rheumatic mitral insufficiency Status: Chronic (17) Stroke Status: Chronic (18) Type 2 diabetes mellitus Status: Chronic (19) Vitamin D deficiency Status: Chronic Past Medical History - Allergies and Home Meds Allergies/Adverse Reactions: Allergies No Known Allergies Allergy (Verified 01/01/18 12:32) Primary Care Physician: Mat Duffy MD [Primary Care Provider] - Surgical History: cholecystectomy, rotator cuff repair, - Lives: Spouse/ Significant Other Smoking Status: Former smoker - Family History Maternal Family History: Family History (Last Reviewed 01/01/18 @ 18:03 by MIKEY Pina) Mother Cancer Diabetes Kidney disease Father Heart disease Diabetes Kidney disease Family History: Reports: Cancer, Diabetes, Renal Disease Paternal Family History: Family History (Last Reviewed 01/01/18 @ 18:03 by MIKEY Pina) Mother Cancer Diabetes Kidney disease Father Heart disease Diabetes Kidney disease Family History: Reports: Diabetes, Heart Disease, Renal Disease Review of Systems ROS: Unable to Obtain Physical Exam Vital Signs/Narrative: Vital Signs Temp Pulse Resp BP Pulse Ox 03/01/18 09:36 98.3 F 74 15 143/55 H 91 Inital Vital Signs reviewed: Yes General: Well nourished, Well developed, Obese, - - Lethargic/stuporous, does alert to voice and physical stimulation and can answer affirmative that she is short of breath and has some chest discomfort. Very little information/details available. Head: Normocephalic, Atraumatic Eyes: Perrl ENT: Moist mucous membranes Neck: Supple, Nontender Cardiovascular: Regular rate, Regular rhythm, No murmurs Respiratory: No distress, Chest nontender, Rales Abdomen: Soft, Nontender, Nondistended Extremities: Nontender, Edema - BLE Skin: Normal color, No rash Neurological: Cranial nerves II-XII grossly intact, Normal Strength - moving all 4 ext's, Normal Sensation - responds to pain all 4, Stupor Diagnostic/Tx/Re-eval Impressions Chest X-Ray 03/01/18 09:[address] 03/01/18 09:39 03/01/18 09:38 Chest 1 View (Portable) [RAD] Stat 03/01/18 09:39 CT Brain [Brain/Head without Contrast] [CT] Stat Laboratory Results 03/01/18 03/01/18 03/01/18 Range/Units 09:40 09:40 10:10 WBC 6.4 (4.4-11.0) K/mm3 RBC 3.67 L (4.2-5.4) M/mm3 Hgb 10.9 L (12.0-15.0) g/dl Hct 35.8 L (37-47) % MCV 97.5 (81-99) fL MCH 29.7 (27.0-32.0) pg MCHC 30.4 L (32-36) g/gl RDW 16.4 H (11.6-14.6) % RDW Differential 58.0 H (35.1-43.9) fl Plt Count 160 (150-450) K/mm3 MPV 9.4 (6.2-12.0) fl Immature Gran % (Auto) 0.600 (0.0-0.9) % Neut % (Auto) 78.7 H (47-70) % Lymph % (Auto) 13.8 L (19-41) % [place] % (Auto) 5.9 (0-10) % Eos % (Auto) 0.8 (0-5) % Baso % (Auto) 0.2 (0-1) % Absolute Neuts (auto) 5.0 (2.0-7.7) X10^3/uL Absolute Lymphs (auto) 0.88 (0.83-4.51) X10^3/ul Total Counted Not Reportable Specimen Type ART Sample Site R Radial pH 7.34 L (7.35-7.45) Bicarbonate Actual 32.7 H (22-26) mmol/L POC Total CO2 34 mmol/L Base Excess 7 H (-2 to +2) mmol/L O2 Saturation 93 L (95-99) % ABG pCO2 60.7 H (35-45) mmHg ABG pO2 75 (75-100) mmHG O2 Delivery Device Nasal Can Liter Flow 4.0 /min Blood Gas Notified Whom ED Blood Gas Notified Time 1008 Sodium 137 (136-145) mmol/L Potassium 4.0 (3.5-5.1) mmol/L Chloride 98 (98-107) mmol/L Carbon Dioxide 30.0 (21.0-32.0) mmol/L Anion Gap 9 (5-15) BUN 32 H (7-18) mg/dL Creatinine 3.66 H (0.55-1.02) mg/dL Estim Creat Clear Calc 0.00 ml/min Est GFR (MDRD) Af Amer 16 L (>60) mL/min Est GFR (MDRD) Non-Af 13 L (>60) mL/min BUN/Creatinine Ratio 8.7 L (10-20) RATIO Glucose 202 H (74-106) mg/dL Calcium 8.7 (8.5-10.1) mg/dL Troponin I < 0.015 (<0.045) ng/mL Urine Color (Yellow) Urine Clarity (Clear) Urine pH (5.0 - 8.0) Ur Specific [place] (1.002-1.030) Urine Protein (Negative) mg/dl Urine Glucose (UA) (Normal) mg/dl Urine Ketones (Negative) mg/dl Urine Occult Blood (Negative) /ul Urine Nitrite (Negative) Urine Bilirubin (Negative) mg/dL Urine Urobilinogen (Normal) mg/dl Ur Leukocyte Esterase (Negative) /ul Urine RBC (0-5) /hpf Urine WBC (0-5) /hpf Ur Squamous Epith Cells (5-10) /hpf Urine Bacteria (None Seen) /hpf Hyaline Casts (0-5) /lpf Urine Mucus (<or=2+) /hpf 03/01/18 Range/Units 12:00 WBC (4.4-11.0) K/mm3 RBC (4.2-5.4) M/mm3 Hgb (12.0-15.0) g/dl Hct (37-47) % MCV (81-99) fL MCH (27.0-32.0) pg MCHC (32-36) g/gl RDW (11.6-14.6) % RDW Differential (35.1-43.9) fl Plt Count (150-450) K/mm3 MPV (6.2-12.0) fl Immature Gran % (Auto) (0.0-0.9) % Neut % (Auto) (47-70) % Lymph % (Auto) (19-41) % [place] % (Auto) (0-10) % Eos % (Auto) (0-5) % Baso % (Auto) (0-1) % Absolute Neuts (auto) (2.0-7.7) X10^3/uL Absolute Lymphs (auto) (0.83-4.51) X10^3/ul Total Counted Specimen Type Sample Site pH (7.35-7.45) Bicarbonate Actual (22-26) mmol/L POC Total CO2 mmol/L Base Excess (-2 to +2) mmol/L O2 Saturation (95-99) % ABG pCO2 (35-45) mmHg ABG pO2 (75-100) mmHG O2 Delivery Device Liter Flow /min Blood Gas Notified Whom Blood Gas Notified Time Sodium (136-145) mmol/L Potassium (3.5-5.1) mmol/L Chloride (98-107) mmol/L Carbon Dioxide (21.0-32.0) mmol/L Anion Gap (5-15) BUN (7-18) mg/dL Creatinine (0.55-1.02) mg/dL Estim Creat Clear Calc ml/min Est GFR (MDRD) Af Amer (>60) mL/min Est GFR (MDRD) Non-Af (>60) mL/min BUN/Creatinine Ratio (10-20) RATIO Glucose (74-106) mg/dL Calcium (8.5-10.1) mg/dL Troponin I (<0.045) ng/mL Urine Color Yellow (Yellow) Urine Clarity Sl. Cloudy (Clear) Urine pH 5.0 (5.0 - 8.0) Ur Specific [place] 1.025 (1.002-1.030) Urine Protein 30 H (Negative) mg/dl Urine Glucose (UA) Normal (Normal) mg/dl Urine Ketones Negative (Negative) mg/dl Urine Occult Blood Negative (Negative) /ul Urine Nitrite Negative (Negative) Urine Bilirubin 1 H (Negative) mg/dL Urine Urobilinogen Normal (Normal) mg/dl Ur Leukocyte Esterase 25 H (Negative) /ul Urine RBC 0 SEEN (0-5) /hpf Urine WBC 0-5 SEEN (0-5) /hpf Ur Squamous Epith Cells 0 SEEN (5-10) /hpf Urine Bacteria RARE (None Seen) /hpf Hyaline Casts 0-5 SEEN (0-5) /lpf Urine Mucus 0 SEEN (<or=2+) /hpf - Rhythm Strip Rhythm Strip: Sinus Rhythm Rate: 70 Ectopy: None - EKG 1 Interpretation: Sinus Rhythm, No Acute Injury Pattern, - - Leftward axis is new. This is because of a change in polarization in lead III, however there are no other acute changes compared with her old EKG about a month ago. No new flipped T waves. - Medical Decision Making Her workup is fairly unremarkable. Her ABG did show mild acidosis with elevated PCO2, which may have been caused by the muscle relaxer she took. Her EKG and troponin are unremarkable, head CT shows no acute abnormalities, and chest x-ray shows no acute abnormalities. Urinalysis shows no infection. Plan is to put her on BiPAP to see if that helps and admit her to PCU. Will discuss with hospitalist. ED Disposition - Plan for ED Patient: Disposition: Acute Care Hospital [facility] Chief Complaint: Alt LOC Diagnosis: Acute hypercapnic respiratory failure, Lethargy Referrals: Mat Duffy MD [Primary Care Provider] -
[2018-03-01] MEDS: Ipratropium/Albuterol Sulfate 3 ML AMPUL.NEB INHALATION (09:45)
[2018-03-01 09:55] LABS: Absolute Lymphocyte Count 0.88 X10^3/ul (0.83-4.51); Basophil# 0.01 X10^3/uL; Basophil% 0.2 % (0-1); Eosinophil# 0.05 X10^3/uL; Eosinophils% 0.8 % (0-5); Hematocrit 35.8 % (37-47); Hemoglobin 10.9 g/dl (12.0-15.0); Lymphocyte # 0.88 X10^3/ul (4.0); Lymphocyte % 13.8 % (19-41); Mean Corp Hgb Conc 30.4 g/gl (32-36); Mean Corpuscular Hgb 29.7 pg (27.0-32.0); Mean Corpuscular Volume 97.5 fL (81-99); Mean Platelet Vol. 9.4 fl (6.2-12.0); Monocyte# 0.38 X10^3/uL; Monocyte% 5.9 % (0-10); Neutrophil # 5.03 X10^3/uL (2.7-7.7); Neutrophil % 78.7 % (47-70); POSITIVE COUNT NO; POSITIVE DIFFERENTIAL NO; POSITIVE MORPHOLOGY NO; Platelet Count 160 K/mm3 (150-450); RBC Distribution Width CV 16.4 % (11.6-14.6); Red Blood Count 3.67 M/mm3 (4.2-5.4); White Blood Count 6.4 K/mm3 (4.4-11.0)
[2018-03-01 10:09] LABS: Anion Gap 9 (5-15); BUN 32 mg/dL (7-18); BUN/Creat Ratio 8.7 RATIO (10-20); Calcium,Total 8.7 mg/dL (8.5-10.1); Chloride 98 mmol/L (98-107); Creatinine, Serum 3.66 mg/dL (0.55-1.02); EST Glomerular Filtration Rate 13 mL/min (>60); Est Glom Filt Rate - Afr Amer 16 mL/min (>60); Glucose 202 mg/dL (74-106); Sodium Level 137 mmol/L (136-145)
[2018-03-01 10:15] LABS: Base Excess 7 mmol/L (-2 to +2); Bicarbonate 32.7 mmol/L (22-26); Blood Gas Specimen Type ART; O2 Delivery Device Nasal Can; PO2 75 mmHG (75-100); SITE R Radial; SO2 93 % (95-99); Time Given 1008; Total Carbon Dioxide 34 mmol/L; pCO2 60.7 mmHg (35-45); pH 7.34 (7.35-7.45)
[2018-03-01 12:05] LABS: Mucous, Urine 0 SEEN /hpf (<or=2+); Red Blood Cells-Urine 0 SEEN /hpf (0-5); Squamous Epithelial Cells - UA 0 SEEN /hpf (5-10)
[2018-03-01 12:08] LABS: Color, Urine Yellow (Yellow); Glucose, Dipstick Normal (Normal); Ketone-Dipstick Negative (Negative); Leukocyte Esterase-Dipstick 25 /ul (Negative); Nitrite-Dipstick Negative (Negative); Occult Blood-Urine Negative /ul (Negative); Protein-Dipstick 30 mg/dl (Negative); Specific Gravity, Urine 1.025 (1.002-1.030); Urine Clarity Sl. Cloudy (Clear); Urine Urobilinogen Normal (Normal)
[2018-03-01 12:10] LABS: Urine Bilirubin Dipstick 1 mg/dL (Negative)
[2018-03-01 12:18] LABS: Bacteria RARE /hpf (None Seen); Hyaline Cast 0-5 SEEN /lpf (0-5); White Blood Cells 0-5 SEEN /hpf (0-5)
--- NOTE | 2018-03-01 13:43 | CPS ---
Pt on home bipap settings of 20/08, asked pt's to bring her own bipap unit in [facility], said he would bring it in.
--- NOTE | 2018-03-01 14:49 | PCM.HP.STD ---
Problem List (1) Altered mental status, unspecified Status: Acute Qualifiers: Altered mental status type: stupor Qualified Code(s): R40.1 - Stupor (2) Acute hypercapnic respiratory failure Status: Acute (3) Lethargy Status: Acute History of Present Illness Date of Admission: 03/01/18 Chief Complaint: altered mental status, shortness of breath The patient is a 72 year old F with past medical history of COPD, obstructive sleep apnea, scleroderma with CREST syndrome a mild aortic stenosis, anemia and hypertension as well as pulmonary hypertension and diabetes and PAD and chronic mitral valve insufficiency. She was admitted via the ED on 03/01/2018 after she woke her up in the middle of the night complaining of generalized shaking and shortness of breath. Able to get any history from the patient she was very somnolent during review. History gotten from . According to , patient woke up and said she was shaking all over around 3:30 AM. He also to call the EMS but patient says she just needed to rest by him for symptoms to resolve. However any this morning, he woke up to find patient short of breath and sitting by the side of the bed and shaking and complaining of chest pain. He medially called the EMS who came and brought the patient to the posterior emergency department. Per EMS squad documentation, a time they arrived at patient's house vitals where respiratory rate of 20 blood pressure of 170/1 5, pulse rate of 60. Patient was complaining of chest pain and shortness of breath and shaking by the bedside and she was started on 15 L of oxygen by non-rebreather mask. Oxygen level checked on patient's home oxygen and CPAP was 95%. Dialysis session was 2 days ago and patient is very compliant with her dialysis on Wednesdays and Fridays. She had recently taken a muscle relaxant prescribed by her primary care doctor on account of pain. According to the , yesterday she took about 3 tablets of 0.1 mg of the muscle relaxants. This is the usual dose she takes according to the . He had not noticed that she had taken any other medications recently. Unable to do review of systems as patient is very somnolent and not responding to questions. However according to he had not noticed anything out of place and patient had not had any complaints of fever, chills, any prior shortness of breath or chest pain, any palpitations, any abdominal pain, any diarrhea vomiting. Review of systems otherwise unable to obtain. In the ED, her vitals were as follows temperature of 98.3 Fahrenheit, pulse rate of 74, respiratory rate of 15 blood pressure of 143/55 and pulse ox of 91%. She was put on BiPAP with FiO2 of 35%. CT of the head done was negative for any acute intracranial pathology. Chest x-ray was also negative. She has been admitted to being managed for altered mental status possibly drug-induced from muscle relaxant that she took. [] Past Medical History Past Medical History (Chronic Problems): Chronic Problems (Last Updated 01/22/18 @ 10:02 by Viviana Childers NP-C) ESRD (end stage renal disease) on dialysis (Chronic) Rheumatic mitral insufficiency (Chronic) Paroxysmal A-fib (Chronic) Valvular heart disease (Chronic) End stage COPD (Chronic) Pulmonary hypertension (Chronic) HTN (hypertension) (Chronic) 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) S/P craniotomy (Chronic) For intracerebral hemorrhage Obesity (BMI 30.0-34.9) (Chronic) Morbid obesity (Chronic) Obstructive sleep apnea (Chronic) Untreated Type 2 diabetes mellitus (Chronic) History of cerebral hemorrhage (Chronic) Anemia (Chronic) Aortic stenosis, mild (Chronic) Mitral stenosis (Chronic) mild Stroke (Chronic) Hyperlipidemia (Chronic) Vitamin D deficiency (Chronic) Neuropathic pain (Chronic) Allergies No Known Allergies Allergy (Verified 01/01/18 12:32) Home Medications: Ambulatory Orders Medication Instructions Recorded Acetaminophen [Tylenol 8 Hour] 650 mg PO Q6H PRN 03/01/18 Aspirin 325 mg PO DAILY@0800 03/01/18 Atorvastatin Calcium 40 mg PO QHS 03/01/18 Baclofen [Baclofen] 10 mg PO TID PRN PRN 03/01/18 Clonidine HCl [Clonidine HCl] 0.1 mg PO TID 03/01/18 Ergocalciferol [Vitamin D] 1 capsule PO QMONTH 03/01/18 Furosemide [Furosemide] 60 mg PO DAILY 03/01/18 Gabapentin [Neurontin] 300 mg PO QHS 03/01/18 Insulin Aspart [Novolog Flexpen] See Protocol 03/01/18 Insulin Glargine [Lantus SoloStar 39 units SQ BID 03/01/18 Pen] Iron Polysaccharide Complex 150 mg PO DAILY 03/01/18 [Ferrex 150] Metoprolol Succinate 25 mg PO DAILY 03/01/18 Nystatin Powder [Mycostatin Powder] 1 applic TOPICAL BID 03/01/18 Pantoprazole Sodium 40 mg PO DAILY 03/01/18 Sertraline HCl [Zoloft] 25 mg PO DAILY 03/01/18 Surgical History: cholecystectomy, rotator cuff repair, - [employer] History: No pertinent [employer] history Lives: Spouse/ Significant Other Smoking Status: Former smoker Drugs: None - *Family History Maternal History Items: Cancer, Diabetes, Renal Disease Paternal History Items: Diabetes, Heart Disease, Renal Disease Review of Systems Constitutional: Denies: Fever, Malaise, Weakness Cardiovascular: Reports: Chest Pain. Denies: Chest Pressure, Chest Tightness, Light Headedness, Syncope Respiratory: Reports: Shortness of Breath, Shortness of breath at rest. Denies: Cough, Pleuritic Pain, Shortness of breath upon exertion, Sputum production, Wheezing Gastrointestinal: Denies: Abdominal Pain, Constipation, Diarrhea Skin: Denies: Dryness, Jaundice Neurological: Reports: Confusion, - - somnolence Hematologic/ Lymphatic: Denies: Easy Bruising, Easy Bleeding Unable to obtain accurate/complete ROS d/t: Limited review of systems is obtained from . VTE Information - Inpt Only VTE Present on Admission: No VTE Mechan Device Prophylaxis: SCD's VTE Pharm Prophylaxis ordered?: Yes Patient Problems: Active and Suspected Problems (Last Updated 01/22/18 @ 10:02 by Viviana Childers, ANGER CONTROL COUNSELOR-C) Acute hypercapnic respiratory failure (Acute) Lethargy (Acute) Altered mental status, unspecified (Acute) - Physical Exam General: - - patient very obtunded, barely responsive to pain and pressure on nail bed and sternal pressure. HEENT: PERRLA, EOMI, Normocephalic Oral: Moist Mucosa Neck: Supple, No JVD Lungs: Clear to auscultation, Normal air movement Cardiovascular: Normal S1, Normal S2, No murmurs, - - bradycardic. Abdomen: Bowel Sounds Present, Soft, Non Tender, Non-Distended, No Hepato-splenomegaly, - - has umbilical hernia that is reducible Extremities: No clubbing, No cyanosis, No edema, Capillary Refill Less than 3 Seconds Skin: No rashes Musculoskeletal: No Tenderness to Palpation of Joints or Extremities Lymphatic: No Cervical, Supraclavicular, or Inguinal Adenopathy Neurological: Cranial nerves II-XII grossly intact, - - patient very obtunded, GCS-8;just mumbles in response to name being shouted out. Tone normal. Reflexes depressed in all extremities. Extensor plantar reflex is equivocal. Vital Signs Temp Pulse Resp BP Pulse Ox 98.3 F 50 L 14 123/63 H 97 03/01/18 09:36 03/01/18 14:24 03/01/18 14:24 03/01/18 14:10 03/01/18 14:24 Oxygen Flow Rate (L/min) 5 Oxygen Delivery Method Bi-pap Weight: 0 oz Body Mass Index (BMI) 0.0 Finger Stick Blood Glucose 500 Laboratory Tests Past 24 Hrs 03/01/18 03/01/18 03/01/18 09:40 09:40 10:10 WBC 6.4 RBC 3.67 L Hgb 10.9 L Hct 35.8 L MCV 97.5 MCH 29.7 MCHC 30.4 L RDW 16.4 H RDW Differential 58.0 H Plt Count 160 MPV 9.4 Immature Gran % (Auto) 0.600 Neut % (Auto) 78.7 H Lymph % (Auto) 13.8 L [place] % (Auto) 5.9 Eos % (Auto) 0.8 Baso % (Auto) 0.2 Absolute Neuts (auto) 5.0 Absolute Lymphs (auto) 0.88 Total Counted Not Reportable Specimen Type ART Sample Site R Radial pH 7.34 L Bicarbonate Actual 32.7 H POC Total CO2 34 Base Excess 7 H O2 Saturation 93 L ABG pCO2 60.7 H ABG pO2 75 O2 Delivery Device Nasal Can Liter Flow 4.0 Blood Gas Notified Whom ED Blood Gas Notified Time 1008 Sodium 137 Potassium 4.0 Chloride 98 Carbon Dioxide 30.0 Anion Gap 9 BUN 32 H Creatinine 3.66 H Estim Creat Clear Calc 0.00 Est GFR (MDRD) Af Amer 16 L Est GFR (MDRD) Non-Af 13 L BUN/Creatinine Ratio 8.7 L Glucose 202 H Calcium 8.7 Troponin I < 0.015 Urine Color Urine Clarity Urine pH Ur Specific [place] Urine Protein Urine Glucose (UA) Urine Ketones Urine Occult Blood Urine Nitrite Urine Bilirubin Urine Urobilinogen Ur Leukocyte Esterase Urine RBC Urine WBC Ur Squamous Epith Cells Urine Bacteria Hyaline Casts Urine Mucus 03/01/18 12:00 WBC RBC Hgb Hct MCV MCH MCHC RDW RDW Differential Plt Count MPV Immature Gran % (Auto) Neut % (Auto) Lymph % (Auto) [place] % (Auto) Eos % (Auto) Baso % (Auto) Absolute Neuts (auto) Absolute Lymphs (auto) Total Counted Specimen Type Sample Site pH Bicarbonate Actual POC Total CO2 Base Excess O2 Saturation ABG pCO2 ABG pO2 O2 Delivery Device Liter Flow Blood Gas Notified Whom Blood Gas Notified Time Sodium Potassium Chloride Carbon Dioxide Anion Gap BUN Creatinine Estim Creat Clear Calc Est GFR (MDRD) Af Amer Est GFR (MDRD) Non-Af BUN/Creatinine Ratio Glucose Calcium Troponin I Urine Color Yellow Urine Clarity Sl. Cloudy Urine pH 5.0 Ur Specific [place] 1.025 Urine Protein 30 H Urine Glucose (UA) Normal Urine Ketones Negative Urine Occult Blood Negative Urine Nitrite Negative Urine Bilirubin 1 H Urine Urobilinogen Normal Ur Leukocyte Esterase 25 H Urine RBC 0 SEEN Urine WBC 0-5 SEEN Ur Squamous Epith Cells 0 SEEN Urine Bacteria RARE Hyaline Casts 0-5 SEEN Urine Mucus 0 SEEN Assessment/Plan Active and Suspected Problems (Last Updated 01/22/18 @ 10:02 by Viviana Childers, ANGER CONTROL COUNSELOR-C) Acute hypercapnic respiratory failure (Acute) Lethargy (Acute) Altered mental status, unspecified (Acute) 72 y/o Female with extensive past history including ESRD on hemodialysis, Wednesdays, hypertension, crest, pulmonary hypertension, mitral valve insufficiency and COPD as well as INES on CPAP. She presented with a few hours history of increased shaking and chest pain and then subsequently became up obtunded and somnolent and not very responsive. No she had taken muscle relaxants 1 day ago and these have been prescribed by PCP. 1. Altered mental status likely medication induced Patient very somnolent and obtunded during review and could answer any questions. Flexed her upper extremity mildly to nail bed pressure and on sternal rub, barely made any movements. After a few minutes patient finally woke up to has been shaking her incessantly. She was actually very confused and unable to answer any questions and wanted to pull off BiPAP facemask. Vitals show a bradycardia with heart rate been around 50. Vitals otherwise normal. Neuro exam showed no focal deficit. Labs are pretty unremarkable CBC showed no leukocytosis and hemoglobin of 10.9. BMP showed BUN of 32 and Cr of 3.66. U tox not done ABG: pH of 7.34, pCO2-60/7, pO2-75 will order U tox. Admit to PCU with telemtry CT head was negative for any acute intracranial pathology. Post surgical left sided occipital craniotomy changes with encephalomalacia and gliosis in left cerebellum. will monitor. NPO for now due to risk of aspiration o/a of altered mental status bedside swallow eval to assess swallowing once she is more responsive will hold all medications that can cause AMS; opiates, gabapentin, baclofen, sertraline.. 2. Acute on chronic hypercapnic respiratory failure patient admitted with shortness of breath and chest pain as well as altered mental status ABGs showed: pH of 7.34, pCO2-60.7, pO2-73; on 4L of oxygen by nasal canula she was placed on BipPAP after these ABGs. CXR showed mild pulmonary vascular congestion with cardiomegaly. Prominent right hilar shadow seen. Ill defined nodular density in left lung more obvious than previous exam. patient started on BiPAP. Will monitor will check BNPep to assess for any heart failure Last echo(11/23): EF of 65%, with moderate diastolic dysfunction, moderately enlarged left atrium. RVSP was 51mmHg.; mild aortic stenosis, mild tricuspid valve insufficiency continue BiPAP therapy to maintain saturation >92% will check ABG and adjust as needed.n pulmo consult. 3. Chest pain, will want to rule out ACS initial troponin was negative. EKGdid not show any acute ST changes during my review, patient had a few runs of Vtach which resolved spontaneously Repeat EKG showed left axis deviation, with no acute ST changes will cycle troponins; will check magnesium level SL nitroglycerin prn 4. HFpEF 2D echo (11/23) showed EF of 60-65%, wit moderate diastolic dysfunction. per , patient on lasix; however, does currently not known. check BNP to assess if there is evidence of CHF exacerbation 5. ESRD on HD MWF compliant. Last dialysis was Friday. K is 4 will consult nephrology- Dr Freeman. Has dialysis catheter in left subclavian region 6. HTN: on clonidine, metoprolol will resume medications. IV Hydralazine prn will reconcile meds once brings meds 7. INES: compliant with CPAP. setting unknown by . Currently on Bipap due to acute on chronic hypercapnic respiratory failure 8. Diabetes on Insulin lantus 39IU bid and ISS. Will hold insulin lantus due to AMS and NPO status. accuchecks q6. NPO sliding scale 9. DVT prophylaxis: heparin 10. GI prophylaxis: PPI This note was generated with Xfire dictation software. It may contain incorrect words, spelling, and punctuation that were not noted in checking the note before signing. Code Visit Inpatient E&M: 93386 Init Hosp L3
--- NOTE | 2018-03-01 14:59 | HP.PCM_ITS ---
Problem List (1) Altered mental status, unspecified Status: Acute Qualifiers: Altered mental status type: stupor Qualified Code(s): R40.1 - Stupor (2) Acute hypercapnic respiratory failure Status: Acute (3) Lethargy Status: Acute History of Present Illness Date of Admission: 03/01/18 Chief Complaint: altered mental status, shortness of breath The patient is a 72 year old F with past medical history of COPD, obstructive sleep apnea, scleroderma with CREST syndrome a mild aortic stenosis, anemia and hypertension as well as pulmonary hypertension and diabetes and PAD and chronic mitral valve insufficiency. She was admitted via the ED on 03/01/2018 after she woke her up in the middle of the night complaining of generalized shaking and shortness of breath. Able to get any history from the patient she was very somnolent during review. History gotten from . According to , patient woke up and said she was shaking all over around 3:30 AM. He also to call the EMS but patient says she just needed to rest by him for symptoms to resolve. However any this morning, he woke up to find patient short of breath and sitting by the side of the bed and shaking and complaining of chest pain. He medially called the EMS who came and brought the patient to the posterior emergency department. Per EMS squad documentation, a time they arrived at patient's house vitals where respiratory rate of 20 blood pressure of 170/1 5, pulse rate of 60. Patient was complaining of chest pain and shortness of breath and shaking by the bedside and she was started on 15 L of oxygen by non-rebreather mask. Oxygen level checked on patient's home oxygen and CPAP was 95%. Dialysis session was 2 days ago and patient is very compliant with her dialysis on Wednesdays and Fridays. She had recently taken a muscle relaxant prescribed by her primary care doctor on account of pain. According to the , yesterday she took about 3 tablets of 0.1 mg of the muscle relaxants. This is the usual dose she takes according to the . He had not noticed that she had taken any other medications recently. Unable to do review of systems as patient is very somnolent and not responding to questions. However according to he had not noticed anything out of place and patient had not had any complaints of fever, chills, any prior shortness of breath or chest pain, any palpitations, any abdominal pain, any diarrhea vomiting. Review of systems otherwise unable to obtain. In the ED, her vitals were as follows temperature of 98.3 Fahrenheit, pulse rate of 74, respiratory rate of 15 blood pressure of 143/55 and pulse ox of 91%. She was put on BiPAP with FiO2 of 35%. CT of the head done was negative for any acute intracranial pathology. Chest x-ray was also negative. She has been admitted to being managed for altered mental status possibly drug-induced from muscle relaxant that she took. [] Past Medical History Past Medical History (Chronic Problems): Chronic Problems (Last Updated 01/22/18 @ 10:02 by Viviana Childers NP-C) ESRD (end stage renal disease) on dialysis (Chronic) Rheumatic mitral insufficiency (Chronic) Paroxysmal A-fib (Chronic) Valvular heart disease (Chronic) End stage COPD (Chronic) Pulmonary hypertension (Chronic) HTN (hypertension) (Chronic) 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) S/P craniotomy (Chronic) For intracerebral hemorrhage Obesity (BMI 30.0-34.9) (Chronic) Morbid obesity (Chronic) Obstructive sleep apnea (Chronic) Untreated Type 2 diabetes mellitus (Chronic) History of cerebral hemorrhage (Chronic) Anemia (Chronic) Aortic stenosis, mild (Chronic) Mitral stenosis (Chronic) mild Stroke (Chronic) Hyperlipidemia (Chronic) Vitamin D deficiency (Chronic) Neuropathic pain (Chronic) Allergies No Known Allergies Allergy (Verified 01/01/18 12:32) Home Medications: Ambulatory Orders Medication Instructions Recorded Acetaminophen [Tylenol 8 Hour] 650 mg PO Q6H PRN 03/01/18 Aspirin 325 mg PO DAILY@0800 03/01/18 Atorvastatin Calcium 40 mg PO QHS 03/01/18 Baclofen [Baclofen] 10 mg PO TID PRN PRN 03/01/18 Clonidine HCl [Clonidine HCl] 0.1 mg PO TID 03/01/18 Ergocalciferol [Vitamin D] 1 capsule PO QMONTH 03/01/18 Furosemide [Furosemide] 60 mg PO DAILY 03/01/18 Gabapentin [Neurontin] 300 mg PO QHS 03/01/18 Insulin Aspart [Novolog Flexpen] See Protocol 03/01/18 Insulin Glargine [Lantus SoloStar 39 units SQ BID 03/01/18 Pen] Iron Polysaccharide Complex 150 mg PO DAILY 03/01/18 [Ferrex 150] Metoprolol Succinate 25 mg PO DAILY 03/01/18 Nystatin Powder [Mycostatin Powder] 1 applic TOPICAL BID 03/01/18 Pantoprazole Sodium 40 mg PO DAILY 03/01/18 Sertraline HCl [Zoloft] 25 mg PO DAILY 03/01/18 Surgical History: cholecystectomy, rotator cuff repair, - [employer]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 Denies: Chest Pressure, Chest Tightness, Light Headedness, Syncope Respiratory: Reports: Shortness of Breath, Shortness of breath at rest. Denies : Cough, Pleuritic Pain, Shortness of breath upon exertion, Sputum production, Wheezing Gastrointestinal: Denies: Abdominal Pain, Constipation, Diarrhea Skin: Denies: Dryness, Jaundice Neurological: Reports: Confusion, - - somnolence Hematologic/ Lymphatic: Denies: Easy Bruising, Easy Bleeding Unable to obtain accurate/complete ROS d/t: Limited review of systems is obtained from . VTE Information - Inpt Only VTE Present on Admission: No VTE Mechan Device Prophylaxis: SCD's VTE Pharm Prophylaxis ordered?: Yes Patient Problems: Active and Suspected Problems (Last Updated 01/22/18 @ 10:02 by Viviana Childers , MACHINE PRINTER HOSE-C) Acute hypercapnic respiratory failure (Acute) Lethargy (Acute) Altered mental status, unspecified (Acute) - Physical Exam General: - - patient very obtunded, barely responsive to pain and pressure on nail bed and sternal pressure. HEENT: PERRLA, EOMI, Normocephalic Oral: Moist Mucosa Neck: Supple, No JVD Lungs: Clear to auscultation, Normal air movement Cardiovascular: Normal S1, Normal S2, No murmurs, - - bradycardic. Abdomen: Bowel Sounds Present, Soft, Non Tender, Non-Distended, No Hepato- splenomegaly, - - has umbilical hernia that is reducible Extremities: No clubbing, No cyanosis, No edema, Capillary Refill Less than 3 Seconds Skin: No rashes Musculoskeletal: No Tenderness to Palpation of Joints or Extremities Lymphatic: No Cervical, Supraclavicular, or Inguinal Adenopathy Neurological: Cranial nerves II-XII grossly intact, - - patient very obtunded, GCS-8;just mumbles in response to name being shouted out. Tone normal. Reflexes depressed in all extremities. Extensor plantar reflex is equivocal. Vital Signs Temp Pulse Resp BP Pulse Ox 98.3 F 50 L 14 123/63 H 97 03/01/18 09:36 03/01/18 14:24 03/01/18 14:24 03/01/18 14:10 03/01/18 14:24 Oxygen Flow Rate (L/min) 5 Oxygen Delivery Method Bi-pap Weight: 0 oz Body Mass Index (BMI) 0.0 Finger Stick Blood Glucose 500 Laboratory Tests Past 24 Hrs 03/01/18 03/01/18 03/01/18 09:40 09:40 10:10 WBC 6.4 RBC 3.67 L Hgb 10.9 L Hct 35.8 L MCV 97.5 MCH 29.7 MCHC 30.4 L RDW 16.4 H RDW Differential 58.0 H Plt Count 160 MPV 9.4 Immature Gran % (Auto) 0.600 Neut % (Auto) 78.7 H Lymph % (Auto) 13.8 L [place] % (Auto) 5.9 Eos % (Auto) 0.8 Baso % (Auto) 0.2 Absolute Neuts (auto) 5.0 Absolute Lymphs (auto) 0.88 Total Counted Not Reportable Specimen Type ART Sample Site R Radial pH 7.34 L Bicarbonate Actual 32.7 H POC Total CO2 34 Base Excess 7 H O2 Saturation 93 L ABG pCO2 60.7 H ABG pO2 75 O2 Delivery Device Nasal Can Liter Flow 4.0 Blood Gas Notified Whom ED Blood Gas Notified Time 1008 Sodium 137 Potassium 4.0 Chloride 98 Carbon Dioxide 30.0 Anion Gap 9 BUN 32 H Creatinine 3.66 H Estim Creat Clear Calc 0.00 Est GFR (MDRD) Af Amer 16 L Est GFR (MDRD) Non-Af 13 L BUN/Creatinine Ratio 8.7 L Glucose 202 H Calcium 8.7 Troponin I < 0.015 Urine Color Urine Clarity Urine pH Ur Specific [place] Urine Protein Urine Glucose (UA) Urine Ketones Urine Occult Blood Urine Nitrite Urine Bilirubin Urine Urobilinogen Ur Leukocyte Esterase Urine RBC Urine WBC Ur Squamous Epith Cells Urine Bacteria Hyaline Casts Urine Mucus 03/01/18 12:00 WBC RBC Hgb Hct MCV MCH MCHC RDW RDW Differential Plt Count MPV Immature Gran % (Auto) Neut % (Auto) Lymph % (Auto) [place] % (Auto) Eos % (Auto) Baso % (Auto) Absolute Neuts (auto) Absolute Lymphs (auto) Total Counted Specimen Type Sample Site pH Bicarbonate Actual POC Total CO2 Base Excess O2 Saturation ABG pCO2 ABG pO2 O2 Delivery Device Liter Flow Blood Gas Notified Whom Blood Gas Notified Time Sodium Potassium Chloride Carbon Dioxide Anion Gap BUN Creatinine Estim Creat Clear Calc Est GFR (MDRD) Af Amer Est GFR (MDRD) Non-Af BUN/Creatinine Ratio Glucose Calcium Troponin I Urine Color Yellow Urine Clarity Sl. Cloudy Urine pH 5.0 Ur Specific [place] 1.025 Urine Protein 30 H Urine Glucose (UA) Normal Urine Ketones Negative Urine Occult Blood Negative Urine Nitrite Negative Urine Bilirubin 1 H Urine Urobilinogen Normal Ur Leukocyte Esterase 25 H Urine RBC 0 SEEN Urine WBC 0-5 SEEN Ur Squamous Epith Cells 0 SEEN Urine Bacteria RARE Hyaline Casts 0-5 SEEN Urine Mucus 0 SEEN Assessment/Plan Active and Suspected Problems (Last Updated 01/22/18 @ 10:02 by Viviana Childers , MACHINE PRINTER [employer]-C) Acute hypercapnic respiratory failure (Acute) Lethargy (Acute) Altered mental status, unspecified (Acute) 72 y/o Female with extensive past history including ESRD on hemodialysis, Wednesdays, hypertension, crest, pulmonary hypertension, mitral valve insufficiency and COPD as well as INES on CPAP. She presented with a few hours history of increased shaking and chest pain and then subsequently became up obtunded and somnolent and not very responsive. No she had taken muscle relaxants 1 day ago and these have been prescribed by PCP. 1. Altered mental status likely medication induced * Patient very somnolent and obtunded during review and could answer any questions. Flexed her upper extremity mildly to nail bed pressure and on sternal rub, barely made any movements. After a few minutes patient finally woke up to has been shaking her incessantly. She was actually very confused and unable to answer any questions and wanted to pull off BiPAP facemask. * Vitals show a bradycardia with heart rate been around 50. Vitals otherwise normal. * Neuro exam showed no focal deficit. * Labs are pretty unremarkable CBC showed no leukocytosis and hemoglobin of 10.9. * BMP showed BUN of 32 and Cr of 3.66. U tox not done * ABG: pH of 7.34, pCO2-60/7, pO2-75 * will order U tox. Admit to PCU with telemtry * CT head was negative for any acute intracranial pathology. Post surgical left sided occipital craniotomy changes with encephalomalacia and gliosis in left cerebellum. * will monitor. NPO for now due to risk of aspiration o/a of altered mental status * bedside swallow eval to assess swallowing once she is more responsive * will hold all medications that can cause AMS; opiates, gabapentin, baclofen, sertraline.. * 2. Acute on chronic hypercapnic respiratory failure * patient admitted with shortness of breath and chest pain as well as altered mental status * ABGs showed: pH of 7.34, pCO2-60.7, pO2-73; on 4L of oxygen by nasal canula * she was placed on BipPAP after these ABGs. * CXR showed mild pulmonary vascular congestion with cardiomegaly. Prominent right hilar shadow seen. Ill defined nodular density in left lung more obvious than previous exam. * patient started on BiPAP. Will monitor * will check BNPep to assess for any heart failure * Last echo(11/23): EF of 65%, with moderate diastolic dysfunction, moderately enlarged left atrium. RVSP was 51mmHg.; mild aortic stenosis, mild tricuspid valve insufficiency * continue BiPAP therapy to maintain saturation >92% * will check ABG and adjust as needed.n * pulmo consult. * 3. Chest pain, will want to rule out ACS * initial troponin was negative. EKGdid not show any acute ST changes * during my review, patient had a few runs of Vtach which resolved spontaneously * Repeat EKG showed left axis deviation, with no acute ST changes * will cycle troponins; will check magnesium level * SL nitroglycerin prn * 4. HFpEF * 2D echo (11/23) showed EF of 60-65%, wit moderate diastolic dysfunction. * per , patient on lasix; however, does currently not known. * check BNP to assess if there is evidence of CHF exacerbation * 5. ESRD on HD MWF * compliant. Last dialysis was Friday. * K is 4 * will consult nephrology- Dr Freeman. Has dialysis catheter in left subclavian region * 6. HTN: * on clonidine, metoprolol * will resume medications. IV Hydralazine prn * will reconcile meds once brings meds * 7. INES: compliant with CPAP. setting unknown by . Currently on Bipap due to acute on chronic hypercapnic respiratory failure 8. Diabetes * on Insulin lantus 39IU bid and ISS. Will hold insulin lantus due to AMS and NPO status. * accuchecks q6. NPO sliding scale * * 9. DVT prophylaxis: heparin 10. GI prophylaxis: PPI This note was generated with [id number] dictation software. It may contain incorrect words, spelling, and punctuation that were not noted in checking the note before signing. Code Visit Inpatient E&M: 50590 Init Hosp L3
[2018-03-01] MEDS: LORazepam 2 MG/ML Syringe 0.5 MG IV (15:06)
[2018-03-01 16:35] LABS: Bedside Glucose 192 mg/dL (70-110)
[2018-03-01 17:49] LABS: BNP,B-Type NATRIURETIC PEPTIDE 475.1 pg/mL (0-100)
[2018-03-01 19:34] LABS: Magnesium 1.8 mg/dL (1.6-2.6)
[2018-03-01 19:39] LABS: Amphetamine Urine VISTA NEGATIVE (<1000 ng/mL); Barbiturate Urine VISTA NEGATIVE (< 200 ng/mL); Benzodiazepine Urine VISTA NEGATIVE (< 200 ng/mL); Cocaine Urine VISTA NEGATIVE (< 300 ng/mL); Ecstacy Urine VISTA NEGATIVE (< 500 ng/mL); Methadone Urine VISTA NEGATIVE (< 300 ng/mL); PCP Urine VISTA NEGATIVE (< 25 ng/mL); THC Urine VISTA NEGATIVE (< 50 ng/mL); Vista UDS pH Range 6
[2018-03-01 19:46] LABS: Allen Test POS; Base Excess 10 mmol/L (-2 to +2); Bicarbonate 35.7 mmol/L (22-26); Blood Gas Specimen Type ART; EPAP 11; FI02 50; IPAP 15; PO2 84 mmHG (75-100); RR 14; SITE L Radial; SO2 95 % (95-99); Time Given 1934; Total Carbon Dioxide 38 mmol/L; pCO2 67.3 mmHg (35-45); pH 7.33 (7.35-7.45)
[2018-03-01] MEDS: Nystatin Powder 15gm Bottle 1 APPLIC TOPICAL (21:30)
[2018-03-01] MEDS: Heparin Injection (Vial) 5,000 UNIT/ML VIAL 5000 UNIT SC (21:30)
[2018-03-01 23:16] LABS: Bedside Glucose 136 mg/dL (70-110)
[2018-03-01 23:46] LABS: Allen Test POS; Base Excess 10 mmol/L (-2 to +2); Bicarbonate 33.1 mmol/L (22-26); Blood Gas Specimen Type ART; EPAP 11; FI02 35; IPAP 20; PO2 67 mmHG (75-100); RR 12; SITE L Radial; SO2 94 % (95-99); Time Given 2334; Total Carbon Dioxide 34 mmol/L; pCO2 44.6 mmHg (35-45); pH 7.48 (7.35-7.45)
[2018-03-02] VITALS (31 sets, daily range): BP systolic 106–174; BP diastolic 42–99; PULSE 45–106; RESP 12–20; TEMP 36.2–36.8; O2SAT 86–100
[2018-03-02] MEDS: Heparin Injection (Vial) 5,000 UNIT/ML VIAL 5000 UNIT SC ×3 (05:24→22:10)
[2018-03-02 05:31] LABS: Bedside Glucose 166 mg/dL (70-110)
[2018-03-02 06:11] LABS: Absolute Lymphocyte Count 0.71 X10^3/ul (0.83-4.51); Absolute Neutrophil Count 5.1 X10^3/uL (2.0-7.7); Basophil# 0.01 X10^3/uL; Basophil% 0.2 % (0-1); Eosinophil# 0.05 X10^3/uL; Eosinophils% 0.8 % (0-5); Hematocrit 34.7 % (37-47); Hemoglobin 10.5 g/dl (12.0-15.0); Lymphocyte # 0.71 X10^3/ul (4.0); Lymphocyte % 11.4 % (19-41); Mean Corp Hgb Conc 30.3 g/gl (32-36); Mean Corpuscular Hgb 29.9 pg (27.0-32.0); Mean Corpuscular Volume 98.9 fL (81-99); Mean Platelet Vol. 10.1 fl (6.2-12.0); Monocyte# 0.29 X10^3/uL; Monocyte% 4.7 % (0-10); Neutrophil # 5.11 X10^3/uL (2.7-7.7); Neutrophil % 82.3 % (47-70); Platelet Count 166 K/mm3 (150-450); RBC Distribution Width CV 16.6 % (11.6-14.6); RBC Distribution Width SD 59.1 fl (35.1-43.9); Red Blood Count 3.51 M/mm3 (4.2-5.4); White Blood Count 6.2 K/mm3 (4.4-11.0)
[2018-03-02 06:17] LABS: POSITIVE COUNT NO; POSITIVE DIFFERENTIAL NO; POSITIVE MORPHOLOGY NO
[2018-03-02 07:32] LABS: Anion Gap 9 (5-15); BUN 39 mg/dL (7-18); BUN/Creat Ratio 11.9 RATIO (10-20); Calcium,Total 8.6 mg/dL (8.5-10.1); Chloride 101 mmol/L (98-107); Creatinine, Serum 3.28 mg/dL (0.55-1.02); EST Glomerular Filtration Rate 15 mL/min (>60); Est Glom Filt Rate - Afr Amer 18 mL/min (>60); Estimated Creatinine Clearance 14.36 ml/min; Glucose 162 mg/dL (74-106); Phosphorus 5.5 mg/dL (2.5-4.9); Potassium 4.1 mmol/L (3.5-5.1); Sodium Level 142 mmol/L (136-145)
--- NOTE | 2018-03-02 08:44 | PCM.CONS.GEN ---
Problem List (1) Lethargy Status: Acute (2) Altered mental status, unspecified Status: Acute Qualifiers: Altered mental status type: stupor Qualified Code(s): R40.1 - Stupor (3) Acute on chronic respiratory failure with hypoxia and hypercapnia Status: Acute (4) ESRD (end stage renal disease) on dialysis Status: Chronic (5) Rheumatic mitral insufficiency Status: Chronic (6) Paroxysmal A-fib Status: Chronic (7) End stage COPD Status: Chronic (8) Pulmonary hypertension Status: Chronic (9) HTN (hypertension) Status: Chronic Qualifiers: Hypertension type: essential hypertension (10) CREST variant of scleroderma Status: Chronic (11) Peripheral arterial occlusive disease Status: Chronic (12) S/P craniotomy Status: Chronic Comment: For intracerebral hemorrhage (13) Obesity (BMI 30.0-34.9) Status: Chronic (14) Obstructive sleep apnea Status: Chronic Comment: Untreated (15) Type 2 diabetes mellitus Status: Chronic Qualifiers: (16) History of cerebral hemorrhage Status: Chronic (17) Mitral stenosis Status: Chronic Qualifiers: Cardiac valve disease etiology: etiology unspecified Qualified Code(s): 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 (18) Stroke Status: Chronic Qualifiers: CVA mechanism: unspecified Qualified Code(s): I63.9 - Cerebral infarction, unspecified (19) Hyperlipidemia Status: Chronic Qualifiers: (20) Vitamin D deficiency Status: Chronic (21) Neuropathic pain Status: Chronic Reason for Consult Date of Consultation: 03/02/18 Reason for Consultation: Respiratory failure History of Present Illness: The patient is a 72 year old F, with past medical history listed below, who presented to [facility] on 03/01/2019 after being found with decreased mental status. Patient reportedly started to report chest pain and shortness of breath that developed on the day of presentation. Conversation with at the bedside, patient did take 3 baclofen tablets yesterday secondary to some lower extremity neuropathy. Following these dosages, patient became less and less responsive, so EMS was called. While in the ER, patient had a relatively unremarkable workup. Chest x-ray did not show any significant infiltrates. Workup for sepsis was not significant. Patient was placed on her home BiPAP therapy and admitted to the regular floor. Overnight, patient has been less responsive per the . However, on my evaluation this morning, patient is opening her eyes and following commands. Patient does have some new jerking of her arms per the that was not there yesterday. Patient with no complaints this morning, but still remains confused on her current location. Patient's reports that she has not missed any hemodialysis. They had planned on going out of town, but this was canceled secondary to logistic issues. Patient typically receives her hemodialysis Friday, Friday and Friday. No significant change in diet or excessive fluids have been reported. Past Medical History Past Medical History (Chronic Problems): Chronic Problems (Last Updated 01/22/18 @ 10:02 by Viviana Childers, MEDICAL CHEMIST-C) ESRD (end stage renal disease) on dialysis (Chronic) Rheumatic mitral insufficiency (Chronic) Paroxysmal A-fib (Chronic) Valvular heart disease (Chronic) End stage COPD (Chronic) Pulmonary hypertension (Chronic) HTN (hypertension) (Chronic) 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) S/P craniotomy (Chronic) For intracerebral hemorrhage Obesity (BMI 30.0-34.9) (Chronic) Morbid obesity (Chronic) Obstructive sleep apnea (Chronic) Untreated Type 2 diabetes mellitus (Chronic) History of cerebral hemorrhage (Chronic) Anemia (Chronic) Aortic stenosis, mild (Chronic) Mitral stenosis (Chronic) mild Stroke (Chronic) Hyperlipidemia (Chronic) Vitamin D deficiency (Chronic) Neuropathic pain (Chronic) Allergies No Known Allergies Allergy (Verified 01/01/18 12:32) Home Medications: Ambulatory Orders Medication Instructions Recorded Acetaminophen [Tylenol 8 Hour] 650 mg PO Q6H PRN 03/01/18 Aspirin 325 mg PO DAILY@0800 03/01/18 Atorvastatin Calcium 40 mg PO QHS 03/01/18 Baclofen [Baclofen] 10 mg PO TID PRN PRN 03/01/18 Clonidine HCl [Clonidine HCl] 0.1 mg PO TID 03/01/18 Ergocalciferol [Vitamin D] 1 capsule PO QMONTH 03/01/18 Furosemide [Furosemide] 60 mg PO DAILY 03/01/18 Gabapentin [Neurontin] 300 mg PO QHS 03/01/18 Insulin Aspart [Novolog Flexpen] See Protocol 03/01/18 Insulin Glargine [Lantus SoloStar 39 units SQ BID 03/01/18 Pen] Iron Polysaccharide Complex 150 mg PO DAILY 03/01/18 [Ferrex 150] Metoprolol Succinate 25 mg PO DAILY 03/01/18 Nystatin Powder [Mycostatin Powder] 1 applic TOPICAL BID 03/01/18 Pantoprazole Sodium 40 mg PO DAILY 03/01/18 Sertraline HCl [Zoloft] 25 mg PO DAILY 03/01/18 Surgical History: cholecystectomy, rotator cuff repair, - DIRECTOR GOVERNMENT History: No pertinent DIRECTOR GOVERNMENT history Lives: Spouse/ Significant Other Smoking Status: Former smoker Drugs: None - *Family History Maternal History Items: Cancer, Diabetes, Renal Disease Paternal History Items: Diabetes, Heart Disease, Renal Disease Review of Systems Unable to obtain accurate/complete ROS d/t: Per , see HPI Patient Problems: Active and Suspected Problems (Last Updated 01/22/18 @ 10:02 by Viviana Childers, MAN-C) Acute hypercapnic respiratory failure (Acute) Lethargy (Acute) Altered mental status, unspecified (Acute) Subjective: Patient follows with Dr. Catnu as an outpatient. Objective: Chest x-ray showed no acute infiltrate and hemodialysis catheter in good position. Outpatient studies show an FEV1 of 24% with a mixed ventilatory defect. Previous echocardiogram showed an EF of 65% with diastolic dysfunction and an RVSP of 51. - Physical Exam General: No apparent distress, - - RASS -1. Able to vocalize some for me. Not following commands at this time. HEENT: Atraumatic, PERRLA, EOMI, Normocephalic, - - Scleral injection without icterus Oral: No Gingival or Mucosal Lesions/ Ulcerations, Dry Mucosa, - - Some crusting around the mouth Neck: Supple, No JVD, No Nodes, Trachea Midline Lungs: No rhonchi, No wheeze, No rales, Diminished, - - Symmetric expansion. No dullness to percussion. Cardiovascular: Regular rate, Regular Rhythm, Normal S1, Normal S2, Murmur - Grade 2 out of 6 systolic ejection murmur at the right sternal border, No rub noted, No Gallop Abdomen: Bowel Sounds Present, Soft, Non Tender, Non-Distended, Obese Extremities: No cyanosis, Capillary Refill Less than 3 Seconds, Clubbing, Edema - Trace to 1+ Skin: No rashes, No breakdown Musculoskeletal: No Tenderness to Palpation of Joints or Extremities, No Muscle Wasting Lymphatic: No Cervical, Supraclavicular, or Inguinal Adenopathy Neurological: Cranial nerves II-XII grossly intact, Neuro grossly intact, Motor Exam 5/5 strength throughout Psych/Mental Status: Flat Affect, Restless Vital Signs Temp Pulse Resp BP Pulse Ox 36.2 C L 65 17 116/69 99 03/02/18 08:00 03/02/18 08:39 03/02/18 08:39 03/02/18 08:00 03/02/18 08:39 Oxygen Delivery Method Bi-pap Weight: 96.5 kg Body Mass Index (BMI) 35.4 Intake and Output for Last 24 Hours 02/28/18 03/01/18 03/02/18 23:59 23:59 23:59 Intake Total 0 / 0 0 / 0 Output Total 125 / 125 100 / 100 Balance -125 / -125 -100 / -100 Laboratory Tests Past 24 Hrs 03/01/18 03/01/18 03/01/18 15:40 15:43 16:15 WBC RBC Hgb Hct MCV MCH MCHC RDW RDW Differential Plt Count MPV Immature Gran % (Auto) Neut % (Auto) Lymph % (Auto) [place] % (Auto) Eos % (Auto) Baso % (Auto) Absolute Neuts (auto) Absolute Lymphs (auto) Total Counted Specimen Type Sample Site pH Bicarbonate Actual POC Total CO2 Base Excess O2 Saturation O2 % ABG pCO2 ABG pO2 Johnny Test Respiration Rate O2 Delivery Device EPAP IPAP Blood Gas Notified Whom Blood Gas Notified Time Sodium Potassium Chloride Carbon Dioxide Anion Gap BUN Creatinine Estim Creat Clear Calc Est GFR (MDRD) Af Amer Est GFR (MDRD) Non-Af BUN/Creatinine Ratio Glucose Calcium Phosphorus Magnesium Troponin I < 0.015 B-Natriuretic Peptide 475.1 H Urine Opiates Screen NEGATIVE Urine Methadone Screen NEGATIVE Ur Barbiturates Screen NEGATIVE Ur Phencyclidine Scrn NEGATIVE Ur Amphetamines Screen NEGATIVE U Methamphetamin-MDMA NEGATIVE U Benzodiazepines Scrn NEGATIVE Urine Cocaine Screen NEGATIVE U Cannabinoids Screen NEGATIVE Ur Drug Screen Comment 03/01/18 03/01/18 03/01/18 16:15 19:39 23:43 WBC RBC Hgb Hct MCV MCH MCHC RDW RDW Differential Plt Count MPV Immature Gran % (Auto) Neut % (Auto) Lymph % (Auto) [place] % (Auto) Eos % (Auto) Baso % (Auto) Absolute Neuts (auto) Absolute Lymphs (auto) Total Counted Specimen Type ART ART Sample Site L Radial L Radial pH 7.33 L 7.48 H Bicarbonate Actual 35.7 H 33.1 H POC Total CO2 38 34 Base Excess 10 H 10 H O2 Saturation 95 94 L O2 % 50 35 ABG pCO2 67.3 H* 44.6 ABG pO2 84 67 L Johnny Test POS POS Respiration Rate 14 12 O2 Delivery Device Bi / C PAP Bi / C PAP EPAP 11 11 IPAP 15 20 Blood Gas Notified Whom HOSP MD HOSP MD Blood Gas Notified Time 1933 2333 Sodium Potassium Chloride Carbon Dioxide Anion Gap BUN Creatinine Estim Creat Clear Calc Est GFR (MDRD) Af Amer Est GFR (MDRD) Non-Af BUN/Creatinine Ratio Glucose Calcium Phosphorus Magnesium 1.8 Troponin I B-Natriuretic Peptide Urine Opiates Screen Urine Methadone Screen Ur Barbiturates Screen Ur Phencyclidine Scrn Ur Amphetamines Screen U Methamphetamin-MDMA U Benzodiazepines Scrn Urine Cocaine Screen U Cannabinoids Screen Ur Drug Screen Comment 03/02/18 03/02/18 05:11 05:11 WBC 6.2 RBC 3.51 L Hgb 10.5 L Hct 34.7 L MCV 98.9 MCH 29.9 MCHC 30.3 L RDW 16.6 H RDW Differential 59.1 H Plt Count 166 MPV 10.1 Immature Gran % (Auto) 0.600 Neut % (Auto) 82.3 H Lymph % (Auto) 11.4 L [place] % (Auto) 4.7 Eos % (Auto) 0.8 Baso % (Auto) 0.2 Absolute Neuts (auto) 5.1 Absolute Lymphs (auto) 0.71 L Total Counted Not Reportable Specimen Type Sample Site pH Bicarbonate Actual POC Total CO2 Base Excess O2 Saturation O2 % ABG pCO2 ABG pO2 Johnny Test Respiration Rate O2 Delivery Device EPAP IPAP Blood Gas Notified Whom Blood Gas Notified Time Sodium 142 Potassium 4.1 Chloride 101 Carbon Dioxide 32.0 Anion Gap 9 BUN 39 H Creatinine 3.28 H Estim Creat Clear Calc 14.36 Est GFR (MDRD) Af Amer 18 L Est GFR (MDRD) Non-Af 15 L BUN/Creatinine Ratio 11.9 Glucose 162 H Calcium 8.6 Phosphorus 5.5 H Magnesium 2.0 Troponin I B-Natriuretic Peptide Urine Opiates Screen Urine Methadone Screen Ur Barbiturates Screen Ur Phencyclidine Scrn Ur Amphetamines Screen U Methamphetamin-MDMA U Benzodiazepines Scrn Urine Cocaine Screen U Cannabinoids Screen Ur Drug Screen Comment POC Glucose 03/02/18 03/01/18 03/01/18 05:18 23:06 16:23 POC Glucose 166 H 136 H 192 H Clinical Impression(s) from Imaging Studies Chest X-Ray 03/01/18 09:[address] 03/01/18 09:39 Assessment/Plan Active and Suspected Problems (Last Updated 01/22/18 @ 10:02 by Viviana Childers, MEDICAL CHEMIST-C) Acute hypercapnic respiratory failure (Acute) Lethargy (Acute) Altered mental status, unspecified (Acute) RECOMMENDATIONS: 1. Hemodialysis per nephrology 2. Continue bronchodilators, doubt need for steroids and antibiotics 3. Continue baseline BiPAP 20/08 4. Continue basal insulin and sliding scale IMPRESSIONS: 1. Acute on chronic combined respiratory failure secondary to baclofen overdose/end-stage COPD/pulmonary hypertension secondary to scleroderma Patient with marginal respiratory reserve at baseline and significant obstructive sleep apnea. Patient reportedly did take 3 baclofen yesterday secondary to lower extremity symptoms. This is excreted renally unchanged, and decreased mental status is likely secondary to continued baclofen effect. Patient is hemodialysis dependent. Would defer to hospitalist on whether renal should be consulted for acute hemodialysis. Patient appears to be compensating well with the use of BiPAP therapy. 2. History of new onset atrial fibrillation with RVR Patient is in normal sinus rhythm at this time. Patient would likely benefit from right heart catheterization as an outpatient. 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 She follows with Dr. Carroll as an outpatient 3. Hyperkalemia/CKD/morbid obesity/peripheral artery occlusive disease/crest variant of scleroderma/HTN/DM/INES/history of cerebral hemorrhage/anemia/stroke/HLD/neuropathic pain/vitamin D deficiency Complicates care, management, recovery, and prognosis. No significant change noted in baseline symptomatology to warrant any changes at this time. Likely okay to transition to baseline Lasix therapy. Code Visit Inpatient E&M: 28466 Init Hosp L3
[2018-03-02 11:41] LABS: Bedside Glucose 121 mg/dL (70-110)
--- NOTE | 2018-03-02 12:54 | PCM.PN.HOSP ---
Patient Problems: Active and Suspected Problems (Last Updated 01/22/18 @ 10:02 by Viviana Childers, SECURITY SYSTEMS SALES REPRESENTATIVE-C) Acute hypercapnic respiratory failure (Acute) Lethargy (Acute) Altered mental status, unspecified (Acute) Subjective: still confused per . no new issues. Vitals/I&O's: Vital Signs Temp Pulse Resp BP Pulse Ox 36.4 C L 63 12 150/82 H 98 03/02/18 12:00 03/02/18 12:00 03/02/18 12:00 03/02/18 12:00 03/02/18 12:00 Oxygen Delivery Method Bi-pap Weight: 96.5 kg Body Mass Index (BMI) 35.4 Intake and Output for Last 24 Hours 02/28/18 03/01/18 03/02/18 23:59 23:59 23:59 Intake Total 0 / 0 0 / 0 Output Total 125 / 125 350 / 350 Balance -125 / -125 -350 / -350 General: - - awake but dozes off easily. HEENT: Atraumatic, Normocephalic Neck: No Nodes, Thyroid Normal Size and Texture Lungs: No rhonchi, No wheeze, Diminished Cardiovascular: Regular rate, Regular Rhythm, Normal S1, Normal S2, No murmurs Abdomen: Bowel Sounds Present, Soft, Non Tender, Non-Distended, No Hepato-splenomegaly Extremities: No edema, No Calf Tenderness Skin: No rashes, No breakdown Laboratory Results 03/01/18 15:40: B-Natriuretic Peptide 475.1 H 03/01/18 15:43: Urine Opiates Screen NEGATIVE, Urine Methadone Screen NEGATIVE, Ur Barbiturates Screen NEGATIVE, Ur Phencyclidine Scrn NEGATIVE, Ur Amphetamines Screen NEGATIVE, U Methamphetamin-MDMA NEGATIVE, U Benzodiazepines Scrn NEGATIVE, Urine Cocaine Screen NEGATIVE, U Cannabinoids Screen NEGATIVE, Ur Drug Screen Comment 03/01/18 16:15: Troponin I < 0.015 03/01/18 16:15: Magnesium 1.8 03/01/18 16:23: POC Glucose 192 H 03/01/18 19:39: Specimen Type ART, Sample Site L Radial, pH 7.33 L, Bicarbonate Actual 35.7 H, POC Total CO2 38, Base Excess 10 H, O2 Saturation 95, O2 % 50, ABG pCO2 67.3 H*, ABG pO2 84, Johnny Test POS, Respiration Rate 14, O2 Delivery Device Bi / C PAP, EPAP 11, IPAP 15, Blood Gas Notified Whom CHRISTIANO LOONEY, Blood Gas Notified Time 193303/01/18 23:06: POC Glucose 136 H 03/01/18 23:43: Specimen Type ART, Sample Site L Radial, pH 7.48 H, Bicarbonate Actual 33.1 H, POC Total CO2 34, Base Excess 10 H, O2 Saturation 94 L, O2 % 35, ABG pCO2 44.6, ABG pO2 67 L, Johnny Test POS, Respiration Rate 12, O2 Delivery Device Bi / C PAP, EPAP 11, IPAP 20, Blood Gas Notified Whom CHRISTIANO LOONEY, Blood Gas Notified Time 233303/02/18 05:11: WBC 6.2, RBC 3.51 L, Hgb 10.5 L, Hct 34.7 L, MCV 98.9, MCH 29.9, MCHC 30.3 L, RDW 16.6 H, RDW Differential 59.1 H, Plt Count 166, MPV 10.1, Immature Gran % (Auto) 0.600, Neut % (Auto) 82.3 H, Lymph % (Auto) 11.4 L, [place] % (Auto) 4.7, Eos % (Auto) 0.8, Baso % (Auto) 0.2, Absolute Neuts (auto) 5.1, Absolute Lymphs (auto) 0.71 L, Total Counted Not Reportable 03/02/18 05:11: Sodium 142, Potassium 4.1, Chloride 101, Carbon Dioxide 32.0, Anion Gap 9, BUN 39 H, Creatinine 3.28 H, Estim Creat Clear Calc 14.36, Est GFR (MDRD) Af Amer 18 L, Est GFR (MDRD) Non-Af 15 L, BUN/Creatinine Ratio 11.9, Glucose 162 H, Calcium 8.6, Phosphorus 5.5 H, Magnesium 2.0 03/02/18 05:18: POC Glucose 166 H 03/02/18 11:37: POC Glucose 121 H 03/02/18 11:45: Hep Bs Antigen Pending Current Medications Acetaminophen (Tylenol) 650 mg PO Q6H PRN PRN Reason: pain/fever Aspirin (Aspirin) 325 mg PO DAILY@0800 [facility] Last Admin: 03/02/18 08:57 Dose: Not Given Atorvastatin Calcium (Lipitor) 40 mg PO QHS [facility] [place] Last Admin: 03/01/18 21:28 Dose: Not Given Clonidine (Catapres) 0.1 mg PO TID [facility] [place] Last Admin: 03/02/18 05:11 Dose: Not Given Dextrose (D50w Syringe) 0 gm IV X1 PRN; Protocol PRN Reason: Hypoglycemia Ergocalciferol (Vitamin D) 50,000 unit PO QMONTH [facility] [place] Furosemide (Lasix) 40 mg IV BID@1000,1800 [facility] [place] Glucagon () 1 mg IM .X1 PRN PRN Reason: Hypoglycemia Heparin Sodium (Porcine) (Heparin Na) 5,000 unit SC Q8 [facility] [place] Last Admin: 03/02/18 05:24 Dose: 5,000 units Insulin Aspart (Novolog Flexpen (Bkc)) 0 units SC Q6 RUBI PRN Reason: Protocol Last Admin: 03/02/18 11:43 Dose: Not Given Magnesium Hydroxide (Milk Of Magnesia) 30 ml PO DAILY PRN PRN PRN Reason: Constipation Metoprolol Succinate (Toprol Xl (Beta Suzan)) 25 mg PO DAILY [facility] [place] Last Admin: 03/02/18 08:57 Dose: Not Given Nystatin (Mycostatin Powder) 1 applic TOPICAL BID RUBI PRN Reason: Protocol Last Admin: 03/01/18 21:30 Dose: 1 applicatio Pantoprazole Sodium (Protonix) 40 mg PO DAILY [facility] [place] Last Admin: 03/02/18 08:57 Dose: Not Given Polysaccharide Iron Complex (Ferrex 150) 150 mg PO DAILY [facility] [place] Last Admin: 03/02/18 08:57 Dose: Not Given Sodium Chloride () 5 - 30 ml IV UD PRN PRN Reason: SALINE FLUSH Medical Necessity - Tobacco Use Smoking Status: Former smoker Assessment/Plan Active and Suspected Problems (Last Updated 01/22/18 @ 10:02 by Viviana Childers, SECURITY SYSTEMS SALES REPRESENTATIVE-C) Acute hypercapnic respiratory failure (Acute) Lethargy (Acute) Altered mental status, unspecified (Acute) 1. toxic encephalopathy 2/2 baclofen and neurontin in a patient with ESRD having HD today and will see how patient responds would DC baclofen and neurontin altogether 2. acute on chronic hypercapnic respiratory failure due to baclofen OD + COPD + pulmoary HTN on BiPAP and appears stable at this time. pulmonary following wean BiPAP as tolerated 3. ESRD HD QMWF HD today 4. DVT proph: SQ heparin 5. Chest pain: troponins negative additional cardiac work up negative. Code Visit Inpatient E&M: 56845 Subs Hosp L2
--- NOTE | 2018-03-02 13:04 | PN_ITS ---
Patient Problems: Active and Suspected Problems (Last Updated 01/22/18 @ 10:02 by Viviana Childers , OFFICE CHAIR ASSEMBLER-C) Acute hypercapnic respiratory failure (Acute) Lethargy (Acute) Altered mental status, unspecified (Acute) Subjective: still confused per . no new issues. Vitals/I&O's: Vital Signs Temp Pulse Resp BP Pulse Ox 36.4 C L 63 12 150/82 H 98 03/02/18 12:00 03/02/18 12:00 03/02/18 12:00 03/02/18 12:00 03/02/18 12:00 Oxygen Delivery Method Bi-pap Weight: 96.5 kg Body Mass Index (BMI) 35.4 Intake and Output for Last 24 Hours 02/28/18 03/01/18 03/02/18 23:59 23:59 23:59 Intake Total 0 / 0 0 / 0 Output Total 125 / 125 350 / 350 Balance -125 / -125 -350 / -350 General: - - awake but dozes off easily. HEENT: Atraumatic, Normocephalic Neck: No Nodes, Thyroid Normal Size and Texture Lungs: No rhonchi, No wheeze, Diminished Cardiovascular: Regular rate, Regular Rhythm, Normal S1, Normal S2, No murmurs Abdomen: Bowel Sounds Present, Soft, Non Tender, Non-Distended, No Hepato- splenomegaly Extremities: No edema, No Calf Tenderness Skin: No rashes, No breakdown Laboratory Results 03/01/18 15:40: B-Natriuretic Peptide 475.1 H 03/01/18 15:43: Urine Opiates Screen NEGATIVE, Urine Methadone Screen NEGATIVE, Ur Barbiturates Screen NEGATIVE, Ur Phencyclidine Scrn NEGATIVE, Ur Amphetamines Screen NEGATIVE, U Methamphetamin-MDMA NEGATIVE, U Benzodiazepines Scrn NEGATIVE, Urine Cocaine Screen NEGATIVE, U Cannabinoids Screen NEGATIVE, Ur Drug Screen Comment 03/01/18 16:15: Troponin I < 0.015 03/01/18 16:15: Magnesium 1.8 03/01/18 16:23: POC Glucose 192 H 03/01/18 19:39: Specimen Type ART, Sample Site L Radial, pH 7.33 L, Bicarbonate Actual 35.7 H, POC Total CO2 38, Base Excess 10 H, O2 Saturation 95, O2 % 50, ABG pCO2 67.3 H*, ABG pO2 84, Johnny Test POS, Respiration Rate 14, O2 Delivery Device Bi / C PAP, EPAP 11, IPAP 15, Blood Gas Notified Whom CHRISTIANO LOONEY, Blood Gas Notified Time 193303/01/18 23:06: POC Glucose 136 H 03/01/18 23:43: Specimen Type ART, Sample Site L Radial, pH 7.48 H, Bicarbonate Actual 33.1 H, POC Total CO2 34, Base Excess 10 H, O2 Saturation 94 L, O2 % 35, ABG pCO2 44.6, ABG pO2 67 L, Johnny Test POS, Respiration Rate 12, O2 Delivery Device Bi / C PAP, EPAP 11, IPAP 20, Blood Gas Notified Whom CHRISTIANO LOONEY, Blood Gas Notified Time 233303/02/18 05:11: WBC 6.2, RBC 3.51 L, Hgb 10.5 L, Hct 34.7 L, MCV 98.9, MCH 29.9 , MCHC 30.3 L, RDW 16.6 H, RDW Differential 59.1 H, Plt Count 166, MPV 10.1, Immature Gran % (Auto) 0.600, Neut % (Auto) 82.3 H, Lymph % (Auto) 11.4 L, [place] % (Auto) 4.7, Eos % (Auto) 0.8, Baso % (Auto) 0.2, Absolute Neuts (auto) 5.1, Absolute Lymphs (auto) 0.71 L, Total Counted Not Reportable 03/02/18 05:11: Sodium 142, Potassium 4.1, Chloride 101, Carbon Dioxide 32.0, Anion Gap 9, BUN 39 H, Creatinine 3.28 H, Estim Creat Clear Calc 14.36, Est GFR (MDRD) Af Amer 18 L, Est GFR (MDRD) Non-Af 15 L, BUN/Creatinine Ratio 11.9, Glucose 162 H, Calcium 8.6, Phosphorus 5.5 H, Magnesium 2.0 03/02/18 05:18: POC Glucose 166 H 03/02/18 11:37: POC Glucose 121 H 03/02/18 11:45: Hep Bs Antigen Pending Current Medications Acetaminophen (Tylenol) 650 mg PO Q6H PRN PRN Reason: pain/fever Aspirin (Aspirin) 325 mg PO DAILY@0800 [facility] Last Admin: 03/02/18 08:57 Dose: Not Given Atorvastatin Calcium (Lipitor) 40 mg PO QHS [facility] Last Admin: 03/01/18 21:28 Dose: Not Given Clonidine (Catapres) 0.1 mg PO TID [facility] Last Admin: 03/02/18 05:11 Dose: Not Given Dextrose (D50w Syringe) 0 gm IV X1 PRN; Protocol PRN Reason: Hypoglycemia Ergocalciferol (Vitamin D) 50,000 unit PO QMONTH [facility] Furosemide (Lasix) 40 mg IV BID@1000,1800 [facility] Glucagon () 1 mg IM .X1 PRN PRN Reason: Hypoglycemia Heparin Sodium (Porcine) (Heparin Na) 5,000 unit SC Q8 [facility] Last Admin: 03/02/18 05:24 Dose: 5,000 units Insulin Aspart (Novolog Flexpen (Bkc)) 0 units SC Q6 RUBI PRN Reason: Protocol Last Admin: 03/02/18 11:43 Dose: Not Given Magnesium Hydroxide (Milk Of Magnesia) 30 ml PO DAILY PRN PRN PRN Reason: Constipation Metoprolol Succinate (Toprol Xl (Beta Suzan)) 25 mg PO DAILY [facility] Last Admin: 03/02/18 08:57 Dose: Not Given Nystatin (Mycostatin Powder) 1 applic TOPICAL BID RUBI PRN Reason: Protocol Last Admin: 03/01/18 21:30 Dose: 1 applicatio Pantoprazole Sodium (Protonix) 40 mg PO DAILY [facility] Last Admin: 03/02/18 08:57 Dose: Not Given Polysaccharide Iron Complex (Ferrex 150) 150 mg PO DAILY [facility] Last Admin: 03/02/18 08:57 Dose: Not Given Sodium Chloride () 5 - 30 ml IV UD PRN PRN Reason: SALINE FLUSH Medical Necessity - Tobacco Use Smoking Status: Former smoker Assessment/Plan Active and Suspected Problems (Last Updated 01/22/18 @ 10:02 by Viviana Childers , OFFICE CHAIR ASSEMBLER-C) Acute hypercapnic respiratory failure (Acute) Lethargy (Acute) Altered mental status, unspecified (Acute) 1. toxic encephalopathy * 2/2 baclofen and neurontin in a patient with ESRD * having HD today and will see how patient responds * would DC baclofen and neurontin altogether 2. acute on chronic hypercapnic respiratory failure * due to baclofen OD + COPD + pulmoary HTN * on BiPAP and appears stable at this time. * pulmonary following * wean BiPAP as tolerated 3. ESRD * HD QMWF * HD today 4. DVT proph: SQ heparin 5. Chest pain: * troponins negative * additional cardiac work up negative. Code Visit Inpatient E&M: 51598 Subs Hosp L2
[2018-03-02] MEDS: Nystatin Powder 15gm Bottle 1 APPLIC TOPICAL ×2 (15:44→22:10)
[2018-03-02] MEDS: Pantoprazole Sodium 40 MG Tablet PO (15:46)
[2018-03-02] MEDS: cloNIDine HCl 0.1 MG Tablet PO ×2 (15:46→22:09)
[2018-03-02] MEDS: Iron Polysaccharide Complex 150 MG CAPSULE PO (15:47)
[2018-03-02] MEDS: Aspirin 325 MG Tablet PO (15:47)
[2018-03-02] MEDS: Metoprolol(XL)Succ 25 MG Tablet PO (15:47)
[2018-03-02] MEDS: 0.9% NaCl Peripheral Flush Adult/Peds IV (15:47)
[2018-03-02] MEDS: Furosemide 40 MG/4 ML Vial IV (16:02)
[2018-03-02 16:56] LABS: Bedside Glucose 169 mg/dL (70-110)
--- NOTE | 2018-03-02 17:24 | PCM.CONS.R ---
Problem List (1) ESRD (end stage renal disease) on dialysis Status: Chronic Consultation - Renal 03/02/18 PCP/ Referring MD: Requesting physician: Dr Rosales Primary care physician: Mat Duffy Reason for Consultation:: ESRD - History of Present Illness History of Present Illness: The patient is a 72 year old F well known to us. ESRD on HD MWF schedule apparently went to PCP last week with back pain. was given baclofen. took about 2-3 doses and developed significant AMS brought into ER by currently finishing up dialysis. alert awake and answers most of questions breathing looks comfortable does not offer any complaints - Allergies Allergies: Allergies No Known Allergies Allergy (Verified 01/01/18 12:32) - Current Medications Current Medications: Current Medications Acetaminophen (Tylenol) 650 mg PO Q6H PRN PRN Reason: pain/fever Aspirin (Aspirin) 325 mg PO DAILY@0800 [facility] Last Admin: 03/02/18 15:47 Dose: 325 mg Atorvastatin Calcium (Lipitor) 40 mg PO QHS [facility] Last Admin: 03/01/18 21:28 Dose: Not Given Clonidine (Catapres) 0.1 mg PO TID [facility] Last Admin: 03/02/18 15:46 Dose: 0.1 mg Dextrose (D50w Syringe) 0 gm IV X1 PRN; Protocol PRN Reason: Hypoglycemia Ergocalciferol (Vitamin D) 50,000 unit PO QMONTH [facility] Furosemide (Lasix) 40 mg IV BID@1000,1800 [facility] Last Admin: 03/02/18 16:02 Dose: 40 mg Glucagon () 1 mg IM .X1 PRN PRN Reason: Hypoglycemia Heparin Sodium (Porcine) (Heparin Na) 5,000 unit SC Q8 [facility] Last Admin: 03/02/18 15:46 Dose: 5,000 units Insulin Aspart (Novolog Flexpen (Bkc)) 0 units SC Q6 RUBI PRN Reason: Protocol Last Admin: 03/02/18 11:43 Dose: Not Given Magnesium Hydroxide (Milk Of Magnesia) 30 ml PO DAILY PRN PRN PRN Reason: Constipation Metoprolol Succinate (Toprol Xl (Beta Suzan)) 25 mg PO DAILY [facility] Last Admin: 03/02/18 15:47 Dose: 25 mg Nystatin (Mycostatin Powder) 1 applic TOPICAL BID RUBI PRN Reason: Protocol Last Admin: 03/02/18 15:44 Dose: 1 applicatio Pantoprazole Sodium (Protonix) 40 mg PO DAILY [facility] Last Admin: 03/02/18 15:46 Dose: 40 mg Polysaccharide Iron Complex (Ferrex 150) 150 mg PO DAILY [facility] Last Admin: 03/02/18 15:47 Dose: 150 mg Sodium Chloride () 5 - 30 ml IV UD PRN PRN Reason: SALINE FLUSH Last Admin: 03/02/18 15:47 Dose: 10 ml - Past Medical History Past Medical History (Chronic Problems): Chronic Problems (Last Updated 01/22/18 @ 10:02 by HILARY NormanC) ESRD (end stage renal disease) on dialysis (Chronic) Rheumatic mitral insufficiency (Chronic) Paroxysmal A-fib (Chronic) Valvular heart disease (Chronic) End stage COPD (Chronic) Pulmonary hypertension (Chronic) HTN (hypertension) (Chronic) 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) S/P craniotomy (Chronic) For intracerebral hemorrhage Obesity (BMI 30.0-34.9) (Chronic) Morbid obesity (Chronic) Obstructive sleep apnea (Chronic) Untreated Type 2 diabetes mellitus (Chronic) History of cerebral hemorrhage (Chronic) Anemia (Chronic) Aortic stenosis, mild (Chronic) Mitral stenosis (Chronic) mild Stroke (Chronic) Hyperlipidemia (Chronic) Vitamin D deficiency (Chronic) Neuropathic pain (Chronic) - Past Surgical History Surgical History: cholecystectomy, rotator cuff repair, - - Social History Smoking Status: Former smoker Drugs: None - Family History Maternal Family History: Family History (Last Reviewed 01/01/18 @ 18:03 by MIKEY Pina) Mother Cancer Diabetes Kidney disease Father Heart disease Diabetes Kidney disease History Items: Cancer, Diabetes, Renal Disease Paternal Family History: Family History (Last Reviewed 01/01/18 @ 18:03 by MIKEY Pina) Mother Cancer Diabetes Kidney disease Father Heart disease Diabetes Kidney disease History Items: Diabetes, Heart Disease, Renal Disease Review of Systems Constitutional: Denies: Chills, Fever, Weight Change HEENT: Denies: Head Aches, Sinus Congestion, Sinus Drainage Cardiovascular: Denies: Chest Pain, Palpitations Respiratory: Denies: Cough, Shortness of breath at rest, Sputum production Gastrointestinal: Denies: Abdominal Pain, Nausea, Vomiting Genitourinary: Denies: Dysuria Musculoskeletal: Denies: Joint Pain, Joint Tenderness Skin: Denies: Rash, Wounds Neurological: Denies: Numbness, Tingling, Focal weakness Psychiatric: Denies: Anxiety, Depression, Homicidal Ideations, Suicidal Ideations Hematologic/ Lymphatic: Denies: Easy Bruising, Easy Bleeding Patient Problems: Active and Suspected Problems (Last Updated 01/22/18 @ 10:02 by Viviana Childers GRAPHICS EDIT TECHNICIAN-C) Acute hypercapnic respiratory failure (Acute) Lethargy (Acute) Altered mental status, unspecified (Acute) - Physical Exam General: Alert, Oriented x3, Cooperative HEENT: Atraumatic, PERRLA, EOMI, Normocephalic Neck: Supple, No JVD, Negative Carotid Bruits Lungs: Clear to auscultation, Normal air movement Cardiovascular: Regular rate, No murmurs Abdomen: Bowel Sounds Present, Soft, Non Tender Extremities: No edema, Capillary Refill Less than 3 Seconds Skin: No rashes, No breakdown Musculoskeletal: No Tenderness to Palpation of Joints or Extremities Neurological: Cranial nerves II-XII grossly intact Psych/Mental Status: Normal Affect, Appropriate Vital Signs Temp Pulse Resp BP Pulse Ox 97.4 F L 68 12 150/64 H 100 03/02/18 16:00 03/02/18 16:06 03/02/18 16:00 03/02/18 16:00 03/02/18 16:00 Oxygen Flow Rate (L/min) 3 Oxygen Delivery Method Nasal Cannula Weight: 96.5 kg Body Mass Index (BMI) 35.4 Intake and Output for Last 24 Hours 02/28/18 03/01/18 03/02/18 23:59 23:59 23:59 Intake Total 0 / 0 0 / 0 Output Total 125 / 125 350 / 350 Balance -125 / -125 -350 / -350 Laboratory Tests Past 24 Hrs 03/01/18 03/01/18 03/01/18 15:40 15:43 16:15 WBC RBC Hgb Hct MCV MCH MCHC RDW RDW Differential Plt Count MPV Immature Gran % (Auto) Neut % (Auto) Lymph % (Auto) [place] % (Auto) Eos % (Auto) Baso % (Auto) Absolute Neuts (auto) Absolute Lymphs (auto) Total Counted Specimen Type Sample Site pH Bicarbonate Actual POC Total CO2 Base Excess O2 Saturation O2 % ABG pCO2 ABG pO2 Johnny Test Respiration Rate O2 Delivery Device EPAP IPAP Blood Gas Notified Whom Blood Gas Notified Time Sodium Potassium Chloride Carbon Dioxide Anion Gap BUN Creatinine Estim Creat Clear Calc Est GFR (MDRD) Af Amer Est GFR (MDRD) Non-Af BUN/Creatinine Ratio Glucose Calcium Phosphorus Magnesium 1.8 B-Natriuretic Peptide 475.1 H Urine Opiates Screen NEGATIVE Urine Methadone Screen NEGATIVE Ur Barbiturates Screen NEGATIVE Ur Phencyclidine Scrn NEGATIVE Ur Amphetamines Screen NEGATIVE U Methamphetamin-MDMA NEGATIVE U Benzodiazepines Scrn NEGATIVE Urine Cocaine Screen NEGATIVE U Cannabinoids Screen NEGATIVE Ur Drug Screen Comment Hep Bs Antigen 03/01/18 03/01/18 03/02/18 19:39 23:43 05:11 WBC 6.2 RBC 3.51 L Hgb 10.5 L Hct 34.7 L MCV 98.9 MCH 29.9 MCHC 30.3 L RDW 16.6 H RDW Differential 59.1 H Plt Count 166 MPV 10.1 Immature Gran % (Auto) 0.600 Neut % (Auto) 82.3 H Lymph % (Auto) 11.4 L [place] % (Auto) 4.7 Eos % (Auto) 0.8 Baso % (Auto) 0.2 Absolute Neuts (auto) 5.1 Absolute Lymphs (auto) 0.71 L Total Counted Not Reportable Specimen Type ART ART Sample Site L Radial L Radial pH 7.33 L 7.48 H Bicarbonate Actual 35.7 H 33.1 H POC Total CO2 38 34 Base Excess 10 H 10 H O2 Saturation 95 94 L O2 % 50 35 ABG pCO2 67.3 H* 44.6 ABG pO2 84 67 L Johnny Test POS POS Respiration Rate 14 12 O2 Delivery Device Bi / C PAP Bi / C PAP EPAP 11 11 IPAP 15 20 Blood Gas Notified Whom HOSP MD HOSP MD Blood Gas Notified Time 1933 2994 Sodium Potassium Chloride Carbon Dioxide Anion Gap BUN Creatinine Estim Creat Clear Calc Est GFR (MDRD) Af Amer Est GFR (MDRD) Non-Af BUN/Creatinine Ratio Glucose Calcium Phosphorus Magnesium B-Natriuretic Peptide Urine Opiates Screen Urine Methadone Screen Ur Barbiturates Screen Ur Phencyclidine Scrn Ur Amphetamines Screen U Methamphetamin-MDMA U Benzodiazepines Scrn Urine Cocaine Screen U Cannabinoids Screen Ur Drug Screen Comment Hep Bs Antigen 03/02/18 03/02/18 05:11 11:45 WBC RBC Hgb Hct MCV MCH MCHC RDW RDW Differential Plt Count MPV Immature Gran % (Auto) Neut % (Auto) Lymph % (Auto) [place] % (Auto) Eos % (Auto) Baso % (Auto) Absolute Neuts (auto) Absolute Lymphs (auto) Total Counted Specimen Type Sample Site pH Bicarbonate Actual POC Total CO2 Base Excess O2 Saturation O2 % ABG pCO2 ABG pO2 Johnny Test Respiration Rate O2 Delivery Device EPAP IPAP Blood Gas Notified Whom Blood Gas Notified Time Sodium 142 Potassium 4.1 Chloride 101 Carbon Dioxide 32.0 Anion Gap 9 BUN 39 H Creatinine 3.28 H Estim Creat Clear Calc 14.36 Est GFR (MDRD) Af Amer 18 L Est GFR (MDRD) Non-Af 15 L BUN/Creatinine Ratio 11.9 Glucose 162 H Calcium 8.6 Phosphorus 5.5 H Magnesium 2.0 B-Natriuretic Peptide Urine Opiates Screen Urine Methadone Screen Ur Barbiturates Screen Ur Phencyclidine Scrn Ur Amphetamines Screen U Methamphetamin-MDMA U Benzodiazepines Scrn Urine Cocaine Screen U Cannabinoids Screen Ur Drug Screen Comment Hep Bs Antigen Pending POC Glucose 03/02/18 03/02/18 03/02/18 16:47 11:37 05:18 POC Glucose 169 H 121 H 166 H 03/01/18 23:06 POC Glucose 136 H Assessment/Plan Active and Suspected Problems (Last Updated 01/22/18 @ 10:02 by Viviana Childers, GRAPHICS EDIT TECHNICIAN-C) Acute hypercapnic respiratory failure (Acute) Lethargy (Acute) Altered mental status, unspecified (Acute) ESRD AMS likely related to baclofen use in dialysis today see orders/ flowsheets mental status is significantly better as per staff asked her to hold baclofen for now completely discussed with at bedside
--- NOTE | 2018-03-02 17:27 | CON.PCM_ITS ---
Problem List (1) ESRD (end stage renal disease) on dialysis Status: Chronic Consultation - Renal 03/02/18 PCP/ Referring MD: Requesting physician: Dr Rosales Primary care physician: Mat Duffy Reason for Consultation:: ESRD - History of Present Illness History of Present Illness: The patient is a 72 year old F well known to us. ESRD on HD MWF schedule apparently went to PCP last week with back pain. was given baclofen. took about 2-3 doses and developed significant AMS brought into ER by currently finishing up dialysis. alert awake and answers most of questions breathing looks comfortable does not offer any complaints - Allergies Allergies: Allergies No Known Allergies Allergy (Verified 01/01/18 12:32) - Current Medications Current Medications: Current Medications Acetaminophen (Tylenol) 650 mg PO Q6H PRN PRN Reason: pain/fever Aspirin (Aspirin) 325 mg PO DAILY@0800 [facility] Last Admin: 03/02/18 15:47 Dose: 325 mg Atorvastatin Calcium (Lipitor) 40 mg PO QHS [facility] Last Admin: 03/01/18 21:28 Dose: Not Given Clonidine (Catapres) 0.1 mg PO TID [facility] Last Admin: 03/02/18 15:46 Dose: 0.1 mg Dextrose (D50w Syringe) 0 gm IV X1 PRN; Protocol PRN Reason: Hypoglycemia Ergocalciferol (Vitamin D) 50,000 unit PO QMONTH [facility] Furosemide (Lasix) 40 mg IV BID@1000,1800 [facility] Last Admin: 03/02/18 16:02 Dose: 40 mg Glucagon () 1 mg IM .X1 PRN PRN Reason: Hypoglycemia Heparin Sodium (Porcine) (Heparin Na) 5,000 unit SC Q8 [facility] Last Admin: 03/02/18 15:46 Dose: 5,000 units Insulin Aspart (Novolog Flexpen (Bkc)) 0 units SC Q6 RUBI PRN Reason: Protocol Last Admin: 03/02/18 11:43 Dose: Not Given Magnesium Hydroxide (Milk Of Magnesia) 30 ml PO DAILY PRN PRN PRN Reason: Constipation Metoprolol Succinate (Toprol Xl (Beta Suzan)) 25 mg PO DAILY [facility] Last Admin: 03/02/18 15:47 Dose: 25 mg Nystatin (Mycostatin Powder) 1 applic TOPICAL BID RUBI PRN Reason: Protocol Last Admin: 03/02/18 15:44 Dose: 1 applicatio Pantoprazole Sodium (Protonix) 40 mg PO DAILY [facility] Last Admin: 03/02/18 15:46 Dose: 40 mg Polysaccharide Iron Complex (Ferrex 150) 150 mg PO DAILY [facility] Last Admin: 03/02/18 15:47 Dose: 150 mg Sodium Chloride () 5 - 30 ml IV UD PRN PRN Reason: SALINE FLUSH Last Admin: 03/02/18 15:47 Dose: 10 ml - Past Medical History Past Medical History (Chronic Problems): Chronic Problems (Last Updated 01/22/18 @ 10:02 by HILARY NormanC) ESRD (end stage renal disease) on dialysis (Chronic) Rheumatic mitral insufficiency (Chronic) Paroxysmal A-fib (Chronic) Valvular heart disease (Chronic) End stage COPD (Chronic) Pulmonary hypertension (Chronic) HTN (hypertension) (Chronic) 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) S/P craniotomy (Chronic) For intracerebral hemorrhage Obesity (BMI 30.0-34.9) (Chronic) Morbid obesity (Chronic) Obstructive sleep apnea (Chronic) Untreated Type 2 diabetes mellitus (Chronic) History of cerebral hemorrhage (Chronic) Anemia (Chronic) Aortic stenosis, mild (Chronic) Mitral stenosis (Chronic) mild Stroke (Chronic) Hyperlipidemia (Chronic) Vitamin D deficiency (Chronic) Neuropathic pain (Chronic) - Past Surgical History Surgical History: cholecystectomy, rotator cuff repair, - - Social History Smoking Status: Former smoker Drugs: None - Family History Maternal Family History: Family History (Last Reviewed 01/01/18 @ 18:03 by MIKEY Pina) Mother Cancer Diabetes Kidney disease Father Heart disease Diabetes Kidney disease History Items: Cancer, Diabetes, Renal Disease Paternal Family History: Family History (Last Reviewed 01/01/18 @ 18:03 by MIKEY Pina) Mother Cancer Diabetes Kidney disease Father Heart disease Diabetes Kidney disease History Items: Diabetes, Heart Disease, Renal Disease Review of Systems Constitutional: Denies: Chills, Fever, Weight Change HEENT: Denies: Head Aches, Sinus Congestion, Sinus Drainage Cardiovascular: Denies: Chest Pain, Palpitations Respiratory: Denies: Cough, Shortness of breath at rest, Sputum production Gastrointestinal: Denies: Abdominal Pain, Nausea, Vomiting Genitourinary: Denies: Dysuria Musculoskeletal: Denies: Joint Pain, Joint Tenderness Skin: Denies: Rash, Wounds Neurological: Denies: Numbness, Tingling, Focal weakness Psychiatric: Denies: Anxiety, Depression, Homicidal Ideations, Suicidal Ideations Hematologic/ Lymphatic: Denies: Easy Bruising, Easy Bleeding Patient Problems: Active and Suspected Problems (Last Updated 01/22/18 @ 10:02 by Viviana Childers BRANCH OPERATION EVALUATION MANAGER-C) Acute hypercapnic respiratory failure (Acute) Lethargy (Acute) Altered mental status, unspecified (Acute) - Physical Exam General: Alert, Oriented x3, Cooperative HEENT: Atraumatic, PERRLA, EOMI, Normocephalic Neck: Supple, No JVD, Negative Carotid Bruits Lungs: Clear to auscultation, Normal air movement Cardiovascular: Regular rate, No murmurs Abdomen: Bowel Sounds Present, Soft, Non Tender Extremities: No edema, Capillary Refill Less than 3 Seconds Skin: No rashes, No breakdown Musculoskeletal: No Tenderness to Palpation of Joints or Extremities Neurological: Cranial nerves II-XII grossly intact Psych/Mental Status: Normal Affect, Appropriate Vital Signs Temp Pulse Resp BP Pulse Ox 97.4 F L 68 12 150/64 H 100 03/02/18 16:00 03/02/18 16:06 03/02/18 16:00 03/02/18 16:00 03/02/18 16:00 Oxygen Flow Rate (L/min) 3 Oxygen Delivery Method Nasal Cannula Weight: 96.5 kg Body Mass Index (BMI) 35.4 Intake and Output for Last 24 Hours 02/28/18 03/01/18 03/02/18 23:59 23:59 23:59 Intake Total 0 / 0 0 / 0 Output Total 125 / 125 350 / 350 Balance -125 / -125 -350 / -350 Laboratory Tests Past 24 Hrs 03/01/18 03/01/18 03/01/18 15:40 15:43 16:15 WBC RBC Hgb Hct MCV MCH MCHC RDW RDW Differential Plt Count MPV Immature Gran % (Auto) Neut % (Auto) Lymph % (Auto) [place] % (Auto) Eos % (Auto) Baso % (Auto) Absolute Neuts (auto) Absolute Lymphs (auto) Total Counted Specimen Type Sample Site pH Bicarbonate Actual POC Total CO2 Base Excess O2 Saturation O2 % ABG pCO2 ABG pO2 Johnny Test Respiration Rate O2 Delivery Device EPAP IPAP Blood Gas Notified Whom Blood Gas Notified Time Sodium Potassium Chloride Carbon Dioxide Anion Gap BUN Creatinine Estim Creat Clear Calc Est GFR (MDRD) Af Amer Est GFR (MDRD) Non-Af BUN/Creatinine Ratio Glucose Calcium Phosphorus Magnesium 1.8 B-Natriuretic Peptide 475.1 H Urine Opiates Screen NEGATIVE Urine Methadone Screen NEGATIVE Ur Barbiturates Screen NEGATIVE Ur Phencyclidine Scrn NEGATIVE Ur Amphetamines Screen NEGATIVE U Methamphetamin-MDMA NEGATIVE U Benzodiazepines Scrn NEGATIVE Urine Cocaine Screen NEGATIVE U Cannabinoids Screen NEGATIVE Ur Drug Screen Comment Hep Bs Antigen 03/01/18 03/01/18 03/02/18 19:39 23:43 05:11 WBC 6.2 RBC 3.51 L Hgb 10.5 L Hct 34.7 L MCV 98.9 MCH 29.9 MCHC 30.3 L RDW 16.6 H RDW Differential 59.1 H Plt Count 166 MPV 10.1 Immature Gran % (Auto) 0.600 Neut % (Auto) 82.3 H Lymph % (Auto) 11.4 L [place] % (Auto) 4.7 Eos % (Auto) 0.8 Baso % (Auto) 0.2 Absolute Neuts (auto) 5.1 Absolute Lymphs (auto) 0.71 L Total Counted Not Reportable Specimen Type ART ART Sample Site L Radial L Radial pH 7.33 L 7.48 H Bicarbonate Actual 35.7 H 33.1 H POC Total CO2 38 34 Base Excess 10 H 10 H O2 Saturation 95 94 L O2 % 50 35 ABG pCO2 67.3 H* 44.6 ABG pO2 84 67 L Johnny Test POS POS Respiration Rate 14 12 O2 Delivery Device Bi / C PAP Bi / C PAP EPAP 11 11 IPAP 15 20 Blood Gas Notified Whom HOSP MD HOSP MD Blood Gas Notified Time 1933 1294 Sodium Potassium Chloride Carbon Dioxide Anion Gap BUN Creatinine Estim Creat Clear Calc Est GFR (MDRD) Af Amer Est GFR (MDRD) Non-Af BUN/Creatinine Ratio Glucose Calcium Phosphorus Magnesium B-Natriuretic Peptide Urine Opiates Screen Urine Methadone Screen Ur Barbiturates Screen Ur Phencyclidine Scrn Ur Amphetamines Screen U Methamphetamin-MDMA U Benzodiazepines Scrn Urine Cocaine Screen U Cannabinoids Screen Ur Drug Screen Comment Hep Bs Antigen 03/02/18 03/02/18 05:11 11:45 WBC RBC Hgb Hct MCV MCH MCHC RDW RDW Differential Plt Count MPV Immature Gran % (Auto) Neut % (Auto) Lymph % (Auto) [place] % (Auto) Eos % (Auto) Baso % (Auto) Absolute Neuts (auto) Absolute Lymphs (auto) Total Counted Specimen Type Sample Site pH Bicarbonate Actual POC Total CO2 Base Excess O2 Saturation O2 % ABG pCO2 ABG pO2 Johnny Test Respiration Rate O2 Delivery Device EPAP IPAP Blood Gas Notified Whom Blood Gas Notified Time Sodium 142 Potassium 4.1 Chloride 101 Carbon Dioxide 32.0 Anion Gap 9 BUN 39 H Creatinine 3.28 H Estim Creat Clear Calc 14.36 Est GFR (MDRD) Af Amer 18 L Est GFR (MDRD) Non-Af 15 L BUN/Creatinine Ratio 11.9 Glucose 162 H Calcium 8.6 Phosphorus 5.5 H Magnesium 2.0 B-Natriuretic Peptide Urine Opiates Screen Urine Methadone Screen Ur Barbiturates Screen Ur Phencyclidine Scrn Ur Amphetamines Screen U Methamphetamin-MDMA U Benzodiazepines Scrn Urine Cocaine Screen U Cannabinoids Screen Ur Drug Screen Comment Hep Bs Antigen Pending POC Glucose 03/02/18 03/02/18 03/02/18 16:47 11:37 05:18 POC Glucose 169 H 121 H 166 H 03/01/18 23:06 POC Glucose 136 H Assessment/Plan Active and Suspected Problems (Last Updated 01/22/18 @ 10:02 by Viviana Childers , BRANCH OPERATION EVALUATION MANAGER-C) Acute hypercapnic respiratory failure (Acute) Lethargy (Acute) Altered mental status, unspecified (Acute) ESRD AMS likely related to baclofen use in dialysis today see orders/ flowsheets mental status is significantly better as per staff asked her to hold baclofen for now completely discussed with at bedside
[2018-03-02] MEDS: Atorvastatin Calcium 40 MG Tablet PO (22:09)
[2018-03-02 23:36] LABS: Bedside Glucose 176 mg/dL (70-110)
[2018-03-03 01:07] VITALS: PULSE 64; RESP 12; RESP 18; O2SAT 93
[2018-03-03 03:00] VITALS: PULSE 43
[2018-03-03 04:05] VITALS: BP 147/69; PULSE 53; PULSE 67; RESP 12; RESP 18; RESP 20; TEMP 37.1; O2SAT 100; O2SAT 94
[2018-03-03] MEDS: Heparin Injection (Vial) 5,000 UNIT/ML VIAL 5000 UNIT SC (06:27)
[2018-03-03 06:29] LABS: Anion Gap 10 (5-15); BUN 19 mg/dL (7-18); BUN/Creat Ratio 7.8 RATIO (10-20); Calcium,Total 8.6 mg/dL (8.5-10.1); Chloride 98 mmol/L (98-107); Creatinine, Serum 2.43 mg/dL (0.55-1.02); EST Glomerular Filtration Rate 21 mL/min (>60); Est Glom Filt Rate - Afr Amer 25 mL/min (>60); Estimated Creatinine Clearance 19.38 ml/min; Glucose 168 mg/dL (74-106); Potassium 3.7 mmol/L (3.5-5.1); Sodium Level 139 mmol/L (136-145)
[2018-03-03 06:36] LABS: Bedside Glucose 180 mg/dL (70-110)
[2018-03-03 06:53] VITALS: PULSE 49
[2018-03-03] MEDS: Aspirin 325 MG Tablet PO (08:28)
--- NOTE | 2018-03-03 09:01 | PCM.PN.HOSP ---
Patient Problems: Active and Suspected Problems (Last Updated 01/22/18 @ 10:02 by Viviana Childers, TEST DRILLER-C) Acute hypercapnic respiratory failure (Acute) Lethargy (Acute) Altered mental status, unspecified (Acute) Subjective: Back to normal today. Vitals/I&O's: Vital Signs Temp Pulse Resp BP Pulse Ox 37.1 C 49 L 20 H 147/69 H 94 03/03/18 04:05 03/03/18 06:53 03/03/18 04:05 03/03/18 04:05 03/03/18 04:05 Oxygen Flow Rate (L/min) 3 Oxygen Delivery Method Nasal Cannula Weight: 96.5 kg Body Mass Index (BMI) 35.4 Intake and Output for Last 24 Hours 03/01/18 03/02/18 03/03/18 23:59 23:59 23:59 Intake Total 0 / 0 60 / 60 0 / 0 Output Total 125 / 125 350 / 350 Balance -125 / -125 -290 / -290 0 / 0 General: Alert, Cooperative, No apparent distress HEENT: Atraumatic, Normocephalic Neck: No Nodes, Thyroid Normal Size and Texture Lungs: Clear to auscultation, Normal air movement, No rhonchi, No wheeze Cardiovascular: Regular rate, Regular Rhythm, Normal S1, Normal S2 Laboratory Results 03/02/18 11:37: POC Glucose 121 H 03/02/18 11:45: Hep Bs Antigen Pending 03/02/18 16:47: POC Glucose 169 H 03/02/18 23:26: POC Glucose 176 H 03/03/18 05:20: Sodium 139, Potassium 3.7, Chloride 98, Carbon Dioxide 31.0, Anion Gap 10, BUN 19 H, Creatinine 2.43 H, Estim Creat Clear Calc 19.38, Est GFR (MDRD) Af Amer 25 L, Est GFR (MDRD) Non-Af 21 L, BUN/Creatinine Ratio 7.8 L, Glucose 168 H, Calcium 8.6 03/03/18 06:25: POC Glucose 180 H Current Medications Acetaminophen (Tylenol) 650 mg PO Q6H PRN PRN Reason: pain/fever Aspirin (Aspirin) 325 mg PO DAILY@0800 [facility] Last Admin: 03/03/18 08:28 Dose: 325 mg Atorvastatin Calcium (Lipitor) 40 mg PO QHS [facility] Last Admin: 03/02/18 22:09 Dose: 40 mg Clonidine (Catapres) 0.1 mg PO TID [facility] Last Admin: 03/03/18 06:28 Dose: Not Given Dextrose (D50w Syringe) 0 gm IV X1 PRN; Protocol PRN Reason: Hypoglycemia Ergocalciferol (Vitamin D) 50,000 unit PO QMONTH [facility] Furosemide (Lasix) 40 mg IV BID@1000,1800 [facility] Last Admin: 03/02/18 16:02 Dose: 40 mg Glucagon () 1 mg IM .X1 PRN PRN Reason: Hypoglycemia Heparin Sodium (Porcine) (Heparin Na) 5,000 unit SC Q8 [facility] Last Admin: 03/03/18 06:27 Dose: 5,000 units Insulin Aspart (Novolog Flexpen (Bkc)) 0 units SC Q6 [facility]BI PRN Reason: Protocol Last Admin: 03/03/18 06:27 Dose: 1 units Magnesium Hydroxide (Milk Of Magnesia) 30 ml PO DAILY PRN PRN PRN Reason: Constipation Metoprolol Succinate (Toprol Xl (Beta Suzan)) 25 mg PO DAILY [facility] Last Admin: 03/02/18 15:47 Dose: 25 mg Nystatin (Mycostatin Powder) 1 applic TOPICAL BID RUBI PRN Reason: Protocol Last Admin: 03/02/18 22:10 Dose: 1 applicatio Pantoprazole Sodium (Protonix) 40 mg PO DAILY [facility] Last Admin: 03/02/18 15:46 Dose: 40 mg Polysaccharide Iron Complex (Ferrex 150) 150 mg PO DAILY [facility] Last Admin: 03/02/18 15:47 Dose: 150 mg Sodium Chloride () 5 - 30 ml IV UD PRN PRN Reason: SALINE FLUSH Last Admin: 03/02/18 15:47 Dose: 10 ml Medical Necessity - Tobacco Use Smoking Status: Former smoker Assessment/Plan Active and Suspected Problems (Last Updated 01/22/18 @ 10:02 by Viviana Childers NP-C) Acute hypercapnic respiratory failure (Acute) Lethargy (Acute) Altered mental status, unspecified (Acute) 1. toxic encephalopathy 2/2 baclofen and neurontin in a patient with ESRD having HD today and will see how patient responds would DC baclofen and neurontin altogether Improved today and back to normal. 2. acute on chronic hypercapnic respiratory failure due to baclofen OD + COPD + pulmonary HTN Off BiPAP Patient has chronic oxygen at home Follow-up with Dr. Valencia as outpatient. 3. ESRD HD QMWF HD YESTERDAY 4. DVT proph: SQ heparin 5. Chest pain: troponins negative additional cardiac work up negative.
--- NOTE | 2018-03-03 09:04 | PN_ITS ---
Patient Problems: Active and Suspected Problems (Last Updated 01/22/18 @ 10:02 by Viviana Childers , FILM INSPECTOR-C) Acute hypercapnic respiratory failure (Acute) Lethargy (Acute) Altered mental status, unspecified (Acute) Subjective: Back to normal today. Vitals/I&O's: Vital Signs Temp Pulse Resp BP Pulse Ox 37.1 C 49 L 20 H 147/69 H 94 03/03/18 04:05 03/03/18 06:53 03/03/18 04:05 03/03/18 04:05 03/03/18 04:05 Oxygen Flow Rate (L/min) 3 Oxygen Delivery Method Nasal Cannula Weight: 96.5 kg Body Mass Index (BMI) 35.4 Intake and Output for Last 24 Hours 03/01/18 03/02/18 03/03/18 23:59 23:59 23:59 Intake Total 0 / 0 60 / 60 0 / 0 Output Total 125 / 125 350 / 350 Balance -125 / -125 -290 / -290 0 / 0 General: Alert, Cooperative, No apparent distress HEENT: Atraumatic, Normocephalic Neck: No Nodes, Thyroid Normal Size and Texture Lungs: Clear to auscultation, Normal air movement, No rhonchi, No wheeze Cardiovascular: Regular rate, Regular Rhythm, Normal S1, Normal S2 Laboratory Results 03/02/18 11:37: POC Glucose 121 H 03/02/18 11:45: Hep Bs Antigen Pending 03/02/18 16:47: POC Glucose 169 H 03/02/18 23:26: POC Glucose 176 H 03/03/18 05:20: Sodium 139, Potassium 3.7, Chloride 98, Carbon Dioxide 31.0, Anion Gap 10, BUN 19 H, Creatinine 2.43 H, Estim Creat Clear Calc 19.38, Est GFR (MDRD) Af Amer 25 L, Est GFR (MDRD) Non-Af 21 L, BUN/Creatinine Ratio 7.8 L , Glucose 168 H, Calcium 8.6 03/03/18 06:25: POC Glucose 180 H Current Medications Acetaminophen (Tylenol) 650 mg PO Q6H PRN PRN Reason: pain/fever Aspirin (Aspirin) 325 mg PO DAILY@0800 [facility] Last Admin: 03/03/18 08:28 Dose: 325 mg Atorvastatin Calcium (Lipitor) 40 mg PO QHS [facility] Last Admin: 03/02/18 22:09 Dose: 40 mg Clonidine (Catapres) 0.1 mg PO TID [facility] Last Admin: 03/03/18 06:28 Dose: Not Given Dextrose (D50w Syringe) 0 gm IV X1 PRN; Protocol PRN Reason: Hypoglycemia Ergocalciferol (Vitamin D) 50,000 unit PO QMONTH [facility] Furosemide (Lasix) 40 mg IV BID@1000,1800 [facility] Last Admin: 03/02/18 16:02 Dose: 40 mg Glucagon () 1 mg IM .X1 PRN PRN Reason: Hypoglycemia Heparin Sodium (Porcine) (Heparin Na) 5,000 unit SC Q8 [facility] Last Admin: 03/03/18 06:27 Dose: 5,000 units Insulin Aspart (Novolog Flexpen (Bkc)) 0 units SC Q6 [facility] PRN Reason: Protocol Last Admin: 03/03/18 06:27 Dose: 1 units Magnesium Hydroxide (Milk Of Magnesia) 30 ml PO DAILY PRN PRN PRN Reason: Constipation Metoprolol Succinate (Toprol Xl (Beta Suzan)) 25 mg PO DAILY [facility] Last Admin: 03/02/18 15:47 Dose: 25 mg Nystatin (Mycostatin Powder) 1 applic TOPICAL BID [facility]BI PRN Reason: Protocol Last Admin: 03/02/18 22:10 Dose: 1 applicatio Pantoprazole Sodium (Protonix) 40 mg PO DAILY [facility] Last Admin: 03/02/18 15:46 Dose: 40 mg Polysaccharide Iron Complex (Ferrex 150) 150 mg PO DAILY [facility] Last Admin: 03/02/18 15:47 Dose: 150 mg Sodium Chloride () 5 - 30 ml IV UD PRN PRN Reason: SALINE FLUSH Last Admin: 03/02/18 15:47 Dose: 10 ml Medical Necessity - Tobacco Use Smoking Status: Former smoker Assessment/Plan Active and Suspected Problems (Last Updated 01/22/18 @ 10:02 by Viviana Childers FILM INSPECTOR-C) Acute hypercapnic respiratory failure (Acute) Lethargy (Acute) Altered mental status, unspecified (Acute) 1. toxic encephalopathy * 2/2 baclofen and neurontin in a patient with ESRD * having HD today and will see how patient responds * would DC baclofen and neurontin altogether * Improved today and back to normal. 2. acute on chronic hypercapnic respiratory failure * due to baclofen OD + COPD + pulmonary HTN * Off BiPAP * Patient has chronic oxygen at home * Follow-up with Dr. Valencia as outpatient. 3. ESRD * HD QMWF * HD YESTERDAY 4. DVT proph: SQ heparin 5. Chest pain: * troponins negative * additional cardiac work up negative.
--- NOTE | 2018-03-03 09:06 | SLEEP ---
Seen patient and educated her and her on the importance of the usage of PAP therapy. Patient was currently on PAP and states no issues with home use.
--- NOTE | 2018-03-03 09:06 | PCM.DC ---
- Discharge Diagnoses Current Active Problems: Current Active and Chronic Problems (Last Updated 01/22/18 @ 10:02 by Viviana Childers NP-C) Acute hypercapnic respiratory failure (Acute) Lethargy (Acute) Altered mental status, unspecified (Acute) You will use the following diet at home:: Renal (restricted protein/sodium) Your food should be the consistency of: Regular Your liquids should be the consistency of: Regular/Thin Discharge Activity: Return to Normal Activity May resume sexual activity in: No Restrictions Keep extremity elevated above heart level: Operative Extremity Call your doctor if you observe: Fever of 101 or Higher, Shortness of breath, - - change in mental status Allergies/Adverse Reactions: Allergies No Known Allergies Allergy (Verified 01/01/18 12:32) Medications to take at Discharge Acetaminophen [Tylenol 8 Hour] 650 mg PO Q6H PRN 03/01/18 Aspirin 325 mg PO DAILY@0800 03/01/18 Atorvastatin Calcium 40 mg PO QHS 03/01/18 Clonidine HCl 0.1 mg PO TID 03/01/18 Ergocalciferol [Vitamin D] 1 capsule PO QMONTH 03/01/18 Furosemide 60 mg PO DAILY 03/01/18 Insulin Aspart [Novolog Flexpen] See Protocol 03/01/18 Insulin Glargine [Lantus SoloStar Pen] 39 units SQ BID 03/01/18 Iron Polysaccharide Complex [Ferrex 150] 150 mg PO DAILY 03/01/18 Metoprolol Succinate 25 mg PO DAILY 03/01/18 Nystatin Powder [Mycostatin Powder] 1 applic TOPICAL BID 03/01/18 Pantoprazole Sodium 40 mg PO DAILY 03/01/18 Sertraline HCl [Zoloft] 25 mg PO DAILY 03/01/18 Primary Care Physician: Mat Duffy MD [Primary Care Provider] - Within 2 Weeks [facility] When: every Friday, Friday, Friday Proposed Discharge Date: 03/03/18
--- NOTE | 2018-03-03 09:08 | PCM.DC.SUM ---
Discharge Date and Diagnosis - Problem List Patient Problems: Active and Suspected Problems (Last Updated 01/22/18 @ 10:02 by Viviana Childers NP-C) Acute hypercapnic respiratory failure (Acute) Lethargy (Acute) Altered mental status, unspecified (Acute) Date of Admission: 03/01/18 Date of Discharge: 03/03/18 - Primary Discharge Diagnosis Active and Suspected Problems (Last Updated 01/22/18 @ 10:02 by Viviana Childers NP-C) Acute hypercapnic respiratory failure (Acute) Lethargy (Acute) Altered mental status, unspecified (Acute) - Secondary Discharge Diagnosis Chronic Problems (Last Updated 01/22/18 @ 10:02 by Viviana Childers NP-C) ESRD (end stage renal disease) on dialysis (Chronic) Rheumatic mitral insufficiency (Chronic) Paroxysmal A-fib (Chronic) Valvular heart disease (Chronic) End stage COPD (Chronic) Pulmonary hypertension (Chronic) HTN (hypertension) (Chronic) 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) S/P craniotomy (Chronic) For intracerebral hemorrhage Obesity (BMI 30.0-34.9) (Chronic) Morbid obesity (Chronic) Obstructive sleep apnea (Chronic) Untreated Type 2 diabetes mellitus (Chronic) History of cerebral hemorrhage (Chronic) Anemia (Chronic) Aortic stenosis, mild (Chronic) Mitral stenosis (Chronic) mild Stroke (Chronic) Hyperlipidemia (Chronic) Vitamin D deficiency (Chronic) Neuropathic pain (Chronic) Hospital Course and Treatment Imaging Results: Clinical Impression(s) from Imaging Studies Chest X-Ray 03/01/18 09:[address] 03/01/18 09:39 Rocael Valencia MD Operations: None Procedures: None Summary of Care Provided: The patient is a 72 year old F is with confusion after taking too many baclofen. Baclofen is renally excreted and patient was taking baclofen as prescribed. Patient is advised not take any further baclofen. Additionally, patient is also advised to stop Neurontin. Status improved after dialysis and the baclofen was removed. 1. toxic encephalopathy 2/2 baclofen and neurontin in a patient with ESRD having HD today and will see how patient responds would DC baclofen and neurontin altogether Improved today and back to normal. 2. acute on chronic hypercapnic respiratory failure due to baclofen OD + COPD + pulmonary HTN Off BiPAP Patient has chronic oxygen at home Follow-up with Dr. Valencia as outpatient. 3. ESRD HD QMWF HD YESTERDAY 4. Chest pain: troponins negative additional cardiac work up negative.[] Discharge Diet: Renal Diet Discharge Activity: Return to Normal Activity May resume sexual activity in: No Restrictions Keep extremity elevated above heart level: Operative Extremity Call your doctor if you observe: Fever of 101 or Higher, Shortness of breath, - - change in mental status Home Medications: Medications to take at Discharge Acetaminophen [Tylenol 8 Hour] 650 mg PO Q6H PRN 03/01/18 Aspirin 325 mg PO DAILY@0800 03/01/18 Atorvastatin Calcium 40 mg PO QHS 03/01/18 Clonidine HCl 0.1 mg PO TID 03/01/18 Ergocalciferol [Vitamin D] 1 capsule PO QMONTH 03/01/18 Furosemide 60 mg PO DAILY 03/01/18 Insulin Aspart [Novolog Flexpen] See Protocol 03/01/18 Insulin Glargine [Lantus SoloStar Pen] 39 units SQ BID 03/01/18 Iron Polysaccharide Complex [Ferrex 150] 150 mg PO DAILY 03/01/18 Metoprolol Succinate 25 mg PO DAILY 03/01/18 Nystatin Powder [Mycostatin Powder] 1 applic TOPICAL BID 03/01/18 Pantoprazole Sodium 40 mg PO DAILY 03/01/18 Sertraline HCl [Zoloft] 25 mg PO DAILY 03/01/18 Primary Care Physician: Mat Duffy MD [Primary Care Provider] - Within 2 Weeks [facility] every Friday, Friday, Friday Disposition: Home Minutes spent on discharge:: 28 Patient Condition:: Good Medical Necessity - Tobacco Use Smoking Status: Former smoker Meaningful Use Info Meaningful Use Diagnoses (Choose all that apply): None applicable Code Visit Inpatient E&M: 75950 Disch Hosp
--- NOTE | 2018-03-03 09:11 | DS.PCM_ITS ---
Discharge Date and Diagnosis - Problem List Patient Problems: Active and Suspected Problems (Last Updated 01/22/18 @ 10:02 by Viviana Childers NP-C) Acute hypercapnic respiratory failure (Acute) Lethargy (Acute) Altered mental status, unspecified (Acute) Date of Admission: 03/01/18 Date of Discharge: 03/03/18 - Primary Discharge Diagnosis Active and Suspected Problems (Last Updated 01/22/18 @ 10:02 by Viviana Childers NP-C) Acute hypercapnic respiratory failure (Acute) Lethargy (Acute) Altered mental status, unspecified (Acute) - Secondary Discharge Diagnosis Chronic Problems (Last Updated 01/22/18 @ 10:02 by Viviana Childers NP-C) ESRD (end stage renal disease) on dialysis (Chronic) Rheumatic mitral insufficiency (Chronic) Paroxysmal A-fib (Chronic) Valvular heart disease (Chronic) End stage COPD (Chronic) Pulmonary hypertension (Chronic) HTN (hypertension) (Chronic) 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) S/P craniotomy (Chronic) For intracerebral hemorrhage Obesity (BMI 30.0-34.9) (Chronic) Morbid obesity (Chronic) Obstructive sleep apnea (Chronic) Untreated Type 2 diabetes mellitus (Chronic) History of cerebral hemorrhage (Chronic) Anemia (Chronic) Aortic stenosis, mild (Chronic) Mitral stenosis (Chronic) mild Stroke (Chronic) Hyperlipidemia (Chronic) Vitamin D deficiency (Chronic) Neuropathic pain (Chronic) Hospital Course and Treatment Imaging Results: Clinical Impression(s) from Imaging Studies Chest X-Ray 03/01/18 09:[address] 03/01/18 09:39 Rocael Valencia MD Operations: None Procedures: None Summary of Care Provided: The patient is a 72 year old F is with confusion after taking too many baclofen. Baclofen is renally excreted and patient was taking baclofen as prescribed. Patient is advised not take any further baclofen. Additionally, patient is also advised to stop Neurontin. Status improved after dialysis and the baclofen was removed. 1. toxic encephalopathy * 2/2 baclofen and neurontin in a patient with ESRD * having HD today and will see how patient responds * would DC baclofen and neurontin altogether * Improved today and back to normal. 2. acute on chronic hypercapnic respiratory failure * due to baclofen OD + COPD + pulmonary HTN * Off BiPAP * Patient has chronic oxygen at home * Follow-up with Dr. Valencia as outpatient. 3. ESRD * HD QMWF * HD YESTERDAY 4. Chest pain: * troponins negative * additional cardiac work up negative.[] Discharge Diet: Renal Diet Discharge Activity: Return to Normal Activity May resume sexual activity in: No Restrictions Keep extremity elevated above heart level: Operative Extremity Call your doctor if you observe: Fever of 101 or Higher, Shortness of breath, - - change in mental status Home Medications: Medications to take at Discharge Acetaminophen [Tylenol 8 Hour] 650 mg PO Q6H PRN 03/01/18 Aspirin 325 mg PO DAILY@0800 03/01/18 Atorvastatin Calcium 40 mg PO QHS 03/01/18 Clonidine HCl 0.1 mg PO TID 03/01/18 Ergocalciferol [Vitamin D] 1 capsule PO QMONTH 03/01/18 Furosemide 60 mg PO DAILY 03/01/18 Insulin Aspart [Novolog Flexpen] See Protocol 03/01/18 Insulin Glargine [Lantus SoloStar Pen] 39 units SQ BID 03/01/18 Iron Polysaccharide Complex [Ferrex 150] 150 mg PO DAILY 03/01/18 Metoprolol Succinate 25 mg PO DAILY 03/01/18 Nystatin Powder [Mycostatin Powder] 1 applic TOPICAL BID 03/01/18 Pantoprazole Sodium 40 mg PO DAILY 03/01/18 Sertraline HCl [Zoloft] 25 mg PO DAILY 03/01/18 Primary Care Physician: Mat Duffy MD [Primary Care Provider] - Within 2 Weeks [facility] When: every Friday, Friday, Friday Disposition: Home Minutes spent on discharge:: 28 Patient Condition:: Good Medical Necessity - Tobacco Use Smoking Status: Former smoker Meaningful Use Info Meaningful Use Diagnoses (Choose all that apply): None applicable Code Visit Inpatient E&M: 26038 Disch Hosp
[2018-03-03] MEDS: Pantoprazole Sodium 40 MG Tablet PO (09:21)
[2018-03-03] MEDS: Nystatin Powder 15gm Bottle 1 APPLIC TOPICAL (09:21)
[2018-03-03] MEDS: Furosemide 40 MG/4 ML Vial IV (09:21)
[2018-03-03] MEDS: Iron Polysaccharide Complex 150 MG CAPSULE PO (09:21)
[2018-03-03 09:22] VITALS: PULSE 65
[2018-03-03] MEDS: Metoprolol(XL)Succ 25 MG Tablet PO (09:22)
[2018-03-03] MEDS: 0.9% NaCl Peripheral Flush Adult/Peds IV (09:23)
[2018-03-03 09:25] VITALS: BP 145/63; PULSE 65; RESP 18; TEMP 36.9; O2SAT 99
--- NOTE | 2018-03-03 09:38 | PCM.PROGNOTE ---
Patient Problems: Active and Suspected Problems (Last Updated 01/22/18 @ 10:02 by Viviana Childers, CART DRIVER-C) Acute hypercapnic respiratory failure (Acute) Lethargy (Acute) Altered mental status, unspecified (Acute) Subjective: Patient did well overnight. Patient did receive hemodialysis yesterday and feels that she is back to her baseline this morning. She is denying any shortness of breath, productive cough or chest pain for me. - Physical Exam General: Alert, Oriented x3, Cooperative, No apparent distress, - - . Speaking in full sentences. HEENT: Atraumatic, PERRLA, EOMI, Normocephalic, - - No scleral icterus or injection noted. Oral: Moist Mucosa, No Gingival or Mucosal Lesions/ Ulcerations Neck: Supple, No JVD, No Nodes, Trachea Midline Lungs: No rhonchi, No wheeze, No rales, Diminished Cardiovascular: Regular rate, Regular Rhythm, Normal S1, Normal S2, Murmur, No rub noted, No Gallop Abdomen: Bowel Sounds Present, Soft, Non Tender, Non-Distended, Obese Extremities: No cyanosis, No edema, Capillary Refill Less than 3 Seconds, Clubbing Skin: No rashes, No breakdown, - - Hemodialysis catheter is clean, dry and intact. Musculoskeletal: No Tenderness to Palpation of Joints or Extremities, No Muscle Wasting Lymphatic: No Cervical, Supraclavicular, or Inguinal Adenopathy Neurological: Cranial nerves II-XII grossly intact, Neuro grossly intact, Motor Exam 5/5 strength throughout Psych/Mental Status: Alert and oriented to time, place, person, mood and affect Vital Signs Temp Pulse Resp BP Pulse Ox 36.9 C 65 18 145/63 H 99 03/03/18 09:25 03/03/18 09:25 03/03/18 09:25 03/03/18 09:25 03/03/18 09:25 Oxygen Flow Rate (L/min) 3 Oxygen Delivery Method Nasal Cannula Weight: 96.5 kg Body Mass Index (BMI) 35.4 Intake and Output for Last 24 Hours 03/01/18 03/02/18 03/03/18 23:59 23:59 23:59 Intake Total 0 / 0 60 / 60 0 / 0 Output Total 125 / 125 350 / 350 Balance -125 / -125 -290 / -290 0 / 0 Laboratory Tests Past 24 Hrs 03/02/18 03/03/18 11:45 05:20 Sodium 139 Potassium 3.7 Chloride 98 Carbon Dioxide 31.0 Anion Gap 10 BUN 19 H Creatinine 2.43 H Estim Creat Clear Calc 19.38 Est GFR (MDRD) Af Amer 25 L Est GFR (MDRD) Non-Af 21 L BUN/Creatinine Ratio 7.8 L Glucose 168 H Calcium 8.6 Hep Bs Antigen Pending POC Glucose 03/03/18 03/02/18 03/02/18 06:25 23:26 16:47 POC Glucose 180 H 176 H 169 H 03/02/18 11:37 POC Glucose 121 H Medical Necessity - Tobacco Use Smoking Status: Former smoker Assessment/Plan Active and Suspected Problems (Last Updated 01/22/18 @ 10:02 by Viviana Childers, MAN-C) Acute hypercapnic respiratory failure (Acute) Lethargy (Acute) Altered mental status, unspecified (Acute) RECOMMENDATIONS: 1. Hemodialysis per nephrology 2. Continue bronchodilators, no need for steroids and antibiotics 3. Continue baseline BiPAP 20/08 4. Continue basal insulin and sliding scale 5. Follow-up in pulmonary office per previously scheduled appointment, no two-week CART DRIVER visit required IMPRESSIONS: 1. Acute on chronic combined respiratory failure secondary to baclofen overdose/end-stage COPD/pulmonary hypertension secondary to scleroderma Responded well to hemodialysis. High clinical suspicion for baclofen toxicity leading to decreased mental status. Patient appears to be back to baseline. No signs or symptoms of exacerbation are reported at this time. Patient can be discharged from a pulmonary perspective. Patient should follow-up in the pulmonary office as previously arranged. No two-week nurse practitioner follow-up would be indicated. 2. History of new onset atrial fibrillation with RVR Patient is in normal sinus rhythm at this time. Patient would likely benefit from right heart catheterization as an outpatient. 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 She follows with Dr. Carroll as an outpatient 3. Hyperkalemia/CKD/morbid obesity/peripheral artery occlusive disease/crest variant of scleroderma/HTN/DM/INES/history of cerebral hemorrhage/anemia/stroke/HLD/neuropathic pain/vitamin D deficiency Complicates care, management, recovery, and prognosis. No significant change noted in baseline symptomatology to warrant any changes at this time. Likely okay to transition to baseline Lasix therapy. Code Visit Inpatient E&M: 36436 Subs Hosp L2
--- NOTE | 2018-03-03 09:42 | PN_ITS ---
Patient Problems: Active and Suspected Problems (Last Updated 01/22/18 @ 10:02 by Viviana Childers , BULK MATERIALS HANDLING PLANT OPERATOR-C) Acute hypercapnic respiratory failure (Acute) Lethargy (Acute) Altered mental status, unspecified (Acute) Subjective: Patient did well overnight. Patient did receive hemodialysis yesterday and feels that she is back to her baseline this morning. She is denying any shortness of breath, productive cough or chest pain for me. - Physical Exam General: Alert, Oriented x3, Cooperative, No apparent distress, - - . Speaking in full sentences. HEENT: Atraumatic, PERRLA, EOMI, Normocephalic, - - No scleral icterus or injection noted. Oral: Moist Mucosa, No Gingival or Mucosal Lesions/ Ulcerations Neck: Supple, No JVD, No Nodes, Trachea Midline Lungs: No rhonchi, No wheeze, No rales, Diminished Cardiovascular: Regular rate, Regular Rhythm, Normal S1, Normal S2, Murmur, No rub noted, No Gallop Abdomen: Bowel Sounds Present, Soft, Non Tender, Non-Distended, Obese Extremities: No cyanosis, No edema, Capillary Refill Less than 3 Seconds, Clubbing Skin: No rashes, No breakdown, - - Hemodialysis catheter is clean, dry and intact. Musculoskeletal: No Tenderness to Palpation of Joints or Extremities, No Muscle Wasting Lymphatic: No Cervical, Supraclavicular, or Inguinal Adenopathy Neurological: Cranial nerves II-XII grossly intact, Neuro grossly intact, Motor Exam 5/5 strength throughout Psych/Mental Status: Alert and oriented to time, place, person, mood and affect Vital Signs Temp Pulse Resp BP Pulse Ox 36.9 C 65 18 145/63 H 99 03/03/18 09:25 03/03/18 09:25 03/03/18 09:25 03/03/18 09:25 03/03/18 09:25 Oxygen Flow Rate (L/min) 3 Oxygen Delivery Method Nasal Cannula Weight: 96.5 kg Body Mass Index (BMI) 35.4 Intake and Output for Last 24 Hours 03/01/18 03/02/18 03/03/18 23:59 23:59 23:59 Intake Total 0 / 0 60 / 60 0 / 0 Output Total 125 / 125 350 / 350 Balance -125 / -125 -290 / -290 0 / 0 Laboratory Tests Past 24 Hrs 03/02/18 03/03/18 11:45 05:20 Sodium 139 Potassium 3.7 Chloride 98 Carbon Dioxide 31.0 Anion Gap 10 BUN 19 H Creatinine 2.43 H Estim Creat Clear Calc 19.38 Est GFR (MDRD) Af Amer 25 L Est GFR (MDRD) Non-Af 21 L BUN/Creatinine Ratio 7.8 L Glucose 168 H Calcium 8.6 Hep Bs Antigen Pending POC Glucose 03/03/18 03/02/18 03/02/18 06:25 23:26 16:47 POC Glucose 180 H 176 H 169 H 03/02/18 11:37 POC Glucose 121 H Medical Necessity - Tobacco Use Smoking Status: Former smoker Assessment/Plan Active and Suspected Problems (Last Updated 01/22/18 @ 10:02 by Viviana Childers , MAN-C) Acute hypercapnic respiratory failure (Acute) Lethargy (Acute) Altered mental status, unspecified (Acute) RECOMMENDATIONS: 1. Hemodialysis per nephrology 2. Continue bronchodilators, no need for steroids and antibiotics 3. Continue baseline BiPAP 20/08 4. Continue basal insulin and sliding scale 5. Follow-up in pulmonary office per previously scheduled appointment, no two-week BULK MAT[employer] HANDLING PLANT OPERATOR visit required IMPRESSIONS: 1. Acute on chronic combined respiratory failure secondary to baclofen overdose/end-stage COPD/pulmonary hypertension secondary to scleroderma Responded well to hemodialysis. High clinical suspicion for baclofen toxicity leading to decreased mental status. Patient appears to be back to baseline. No signs or symptoms of exacerbation are reported at this time. Patient can be discharged from a pulmonary perspective. Patient should follow- up in the pulmonary office as previously arranged. No two-week nurse practitioner follow-up would be indicated. 2. History of new onset atrial fibrillation with RVR Patient is in normal sinus rhythm at this time. Patient would likely benefit from right heart catheterization as an outpatient. 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 She follows with Dr. Carroll as an outpatient 3. Hyperkalemia/CKD/morbid obesity/peripheral artery occlusive disease/ crest variant of scleroderma/HTN/DM/INES/history of cerebral hemorrhage/anemia/ stroke/HLD/neuropathic pain/vitamin D deficiency Complicates care, management, recovery, and prognosis. No significant change noted in baseline symptomatology to warrant any changes at this time. Likely okay to transition to baseline Lasix therapy. Code Visit Inpatient E&M: 00996 Subs Hosp L2
[2018-03-05 10:14] LABS: HEPATITIS B SURFACE AG Negative (Negative)
== END 2018-03-03 10:17 | disposition home or self-care (01) | DRG 91 ==
LOC: ED 12:46 → PCU 14:55
PROVIDERS: Internal Medicine Critical Care Medicine; Internal Medicine Nephrology; Admitting Provider Student in an Organized Health Care Education/Training Program; Emergency Provider Emergency Medicine; Family Provider Internal Medicine; PCP Internal Medicine
DX: G92 Toxic encephalopathy (principal); J96.22 Acute and chronic respiratory failure with hypercapnia; N18.6 End stage renal disease; I12.0 Hypertensive chronic kidney disease with stage 5 chronic kidney disease or end stage renal disease; T42.8X1A Poisoning by antiparkinsonism drugs and other central muscle-tone depressants, accidental (unintentional), initial encounter; T42.8X5A Adverse effect of antiparkinsonism drugs and other central muscle-tone depressants, initial encounter; E55.9 Vitamin D deficiency, unspecified; E11.22 Type 2 diabetes mellitus with diabetic chronic kidney disease; G47.33 Obstructive sleep apnea (adult) (pediatric); J44.9 Chronic obstructive pulmonary disease, unspecified; I27.20 Pulmonary hypertension, unspecified; M34.9 Systemic sclerosis, unspecified; I48.0 Paroxysmal atrial fibrillation; E66.01 Morbid (severe) obesity due to excess calories; E78.5 Hyperlipidemia, unspecified; D64.9 Anemia, unspecified; Z99.2 Dependence on renal dialysis; Z86.73 Personal history of transient ischemic attack (TIA), and cerebral infarction without residual deficits; Z87.891 Personal history of nicotine dependence; Z79.4 Long term (current) use of insulin; Z68.35 Body mass index [BMI] 35.0-35.9, adult; Z99.81 Dependence on supplemental oxygen; Z79.82 Long term (current) use of aspirin; Y92.009 Unspecified place in unspecified non-institutional (private) residence as the place of occurrence of the external cause
CPT/HCPCS: 36415; 36600; 51702; 70450; 71045; 80048; 80307; 81001; 82803; 82962; 83735; 83880; 84100; 84484; 85025; 87340; 90937; 93005; 93970; 94002; 94003; 94640; 97162; 97165; 97802; 99284; J7030; A4216; G0257; J1940

== ENCOUNTER 2018-04-02 06:14 | Day surgery (SDC) | payer MEDICARE, SELFPAY ==
--- NOTE | 2018-04-02 06:26 | EKG12_ITS ---
Test Reason : PRE OP Blood Pressure : / mmHG Vent. Rate : 050 BPM Atrial Rate : 050 BPM P-R Int : 164 ms QRS Dur : 096 ms QT Int : 518 ms P-R-T Axes : 030 -32 038 degrees QTc Int : 472 ms Sinus bradycardia Left axis deviation Prolonged QT Abnormal ECG When compared with ECG of 01-MAR-2018 14:40, Inverted T waves have replaced nonspecific T wave abnormality in Anterior leads Confirmed by REX LOONEY, JUSTIN ([id number]), society editor OSIEL HINES ([id number] on 04/03/2018 10:08:33 AM Referred By: Anoop Angeles Confirmed By:JUSTIN GOODMAN MD
[2018-04-02 06:49] VITALS: BP 162/73; PULSE 49; RESP 18; TEMP 36.3; O2SAT 100; BMI 33.3
[2018-04-02 06:57] LABS: Hematocrit 35.6 % (37-47); Mean Corp Hgb Conc 30.9 g/gl (32-36); Mean Corpuscular Hgb 29.6 pg (27.0-32.0); Mean Corpuscular Volume 95.7 fL (81-99); Mean Platelet Vol. 9.3 fl (6.2-12.0); Platelet Count 123 K/mm3 (150-450); RBC Distribution Width CV 15.5 % (11.6-14.6); RBC Distribution Width SD 54.4 fl (35.1-43.9); Red Blood Count 3.72 M/mm3 (4.2-5.4)
[2018-04-02 07:00] LABS: Bedside Glucose 210 mg/dL (70-110)
[2018-04-02 07:10] LABS: Anion Gap 6 (5-15); BUN 24 mg/dL (7-18); BUN/Creat Ratio 12.4 RATIO (10-20); Calcium,Total 8.2 mg/dL (8.5-10.1); Chloride 103 mmol/L (98-107); Creatinine, Serum 1.94 mg/dL (0.55-1.02); EST Glomerular Filtration Rate 27 mL/min (>60); Est Glom Filt Rate - Afr Amer 33 mL/min (>60); Estimated Creatinine Clearance 24.28 ml/min; Glucose 219 mg/dL (74-106); Potassium 3.9 mmol/L (3.5-5.1); Sodium Level 141 mmol/L (136-145)
[2018-04-02 07:16] LABS: Scan Indicated on CBC? Y/N NO
--- NOTE | 2018-04-02 08:53 | DCINST_ITS ---
Discharge Diet: Renal Diet Discharge Activity: May Not Drive - for 2-3 days or while taking narcotic pain medications., May Shower, May Take a Tub Bath - in 5 days. Lifting Restrictions: 5 pounds Keep extremity elevated above heart level: - - Keep arm elevated above the heart level for 3 days. Additional Activity Instructions:: Exercise hand vigorously with a stress ball. Call your doctor if your incision/area has: Continuous Slow Oozing, Sudden Increased Bleeding - apply pressure and call your doctor., Increased Pain/ Swelling, Increased Redness, Foul Smelling Discharge Call your doctor if you observe: Fever of 101 or Higher Suture Line Care: Avoid Pulling/Pushing, Avoid Pinching/Bending Cleanse incision/area with: Keep Dressing Clean & Dry Additional Dressing/Incision Instructions:: You may elevate your left arm to limit swelling and for comfort. Exercise your left hand with a stress ball as often as feasible. Please keep the incision clean and dry for 3 days. Allergies/Adverse Reactions: Allergies No Known Allergies Allergy (Verified 03/05/18 07:41) Medications to take at Discharge Acetaminophen [Tylenol 8 Hour] 650 mg PO Q6H PRN 03/01/18 Aspirin 325 mg PO DAILY@0800 03/01/18 Atorvastatin Calcium 40 mg PO QHS 03/01/18 Clonidine HCl 0.1 mg PO TID 03/01/18 Ergocalciferol [Vitamin D] 1 cap PO QMONTH 03/01/18 Furosemide 60 mg PO DAILY 03/01/18 Insulin Aspart [Novolog Flexpen] See Protocol 03/01/18 Insulin Glargine [Lantus SoloStar Pen] 39 units SQ BID 03/01/18 Metoprolol Succinate 25 mg PO DAILY 03/01/18 Nystatin Powder [Mycostatin Powder] 1 applic TOPICAL BID 03/01/18 Pantoprazole Sodium 40 mg PO DAILY 03/01/18 Sertraline HCl [Zoloft] 25 mg PO DAILY 03/01/18 Hydrocodone Bitart/Apap 5-325 [[place] 5MG-325MG] 1 tablet PO Q6H PRN PRN 2 Days # 5 tablet 04/02/18 The following prescriptions were given: Hydrocodone Bitart/Apap 5-325 [[place] 5MG-325MG] 1 tablet PO Q6H PRN PRN 2 Days # 5 tablet PRN Reason: Pain Primary Care Physician: Mat Duffy MD [Primary Care Provider] - Please Follow Up With: Anoop Angeles MD - [phone] When: Call to make an appointment for follow up in 10 days.
[2018-04-02] MEDS: Heparin Injection (Vial) 5,000 UNIT/ML VIAL 5000 UNIT (09:14)
[2018-04-02] MEDS: Bupivacaine Mpf 0.5% 30 ML VIAL (09:14)
--- NOTE | 2018-04-02 10:27 | PCM.OPRPT ---
Problem List (1) Chronic renal insufficiency, stage V Status: Acute Report of Operation Date of Procedure: 04/02/18 Pre-Operative Diagnosis: Stage V renal failure Post-Operative Diagnosis: Same Surgery/Procedure Performed:: Transposition left forearm cephalic vein to radial artery arteriovenous fistula creation Description of Surgical Findings:: Timeout and informed consent was obtained. 72-year-old female was taken to the operating room. She was placed on the table. The left upper extremity sterilely prepped and draped. Ultrasound mapping of the cephalic vein was performed pre-intervention. Throughout the procedure of 11 cc of 0.5% lidocaine and 15 cc of 1% lidocaine mixed 50-50 with 0.5% Marcaine was used as local anesthetic. Local was instilled. A longitudinal incision was made directly over the cephalic vein. Tedious sharp and blunt dissection was used to harvest the cephalic vein. Side branches were secured with 4-0 Vicryl ligatures and hemoclips were indicated. Dissection performed from the distal third of the forearm to the antecubital space. More distally the vein became diminutive. Having completely dissected the vein free it was ink marked and then irrigated demonstrating adequate diameter. Sharp and blunt dissection was used to identify the radial artery this was rather deeply placed there was significant amount of fibrofatty tissue however with tedious dissection was able to gently elevated. Then the patient had the vein tunneled from the antecubital space medially to the incision down to the radial artery. The patient then received 9000 units of heparin intravenously. After adequate circling time peripheral vascular clamps were placed on the radial artery and 11 blade was used to make an arteriotomy which was extended with Winn scissors. The vein had been spatulated at a branch point to allow for slightly larger anastomosis. A end-to-side anastomosis created with running 7-0 Prolene. Prior to completion there is good antegrade and retrograde flow. The anastomosis was completed and there appeared to be a very nice cobra head with good positional lie. Doppler signal demonstrated excellent flow. Patient received 20 mg of protamine intravenously. The wound was closed in layers with a deep layer of interrupted 3-0 Vicryl and then a running septic or 4-0 Monocryl. Steri-Strips Telfa tape soft roll and Rustam wrap applied. Sponge and instrument and needle counts were reported to the surgeon to be correct. Blood loss was minimal. She tolerated the procedure well was taken to the recovery area in satisfactory condition. Hand was viable to completion. No apparent complication. Specimens none. Drains none. Blood loss minimal. Anoop Angeles M.D., F.A.C.S. Type of Anesthesia:: Local MAC Anesthesiologist: Ghulam Monreal
[2018-04-02 10:53] VITALS: BP 127/67; BP 162/73; PULSE 57; RESP 16; TEMP 36.1; O2SAT 99
[2018-04-02 10:58] VITALS: BP 131/70; BP 162/73; PULSE 52; RESP 16; O2SAT 93
[2018-04-02 11:05] VITALS: BP 144/70; BP 162/73; PULSE 51; RESP 16; O2SAT 94
[2018-04-02 11:15] VITALS: BP 145/69; BP 162/73; PULSE 52; RESP 16; TEMP 36.1; O2SAT 92
[2018-04-02 12:32] VITALS: BP 139/56; BP 162/73; PULSE 57; RESP 18; TEMP 36.7; O2SAT 100
== END 2018-04-02 12:46 | disposition home or self-care (01) ==
LOC: SDC 06:15 → AC 06:16
PROVIDERS: Family Provider Internal Medicine; PCP Internal Medicine; Visit Provider Surgery
PROC: (CPT 36818; principal; 2018-04-02 08:30)
DX: I12.0 Hypertensive chronic kidney disease with stage 5 chronic kidney disease or end stage renal disease (principal); E11.22 Type 2 diabetes mellitus with diabetic chronic kidney disease; N18.5 Chronic kidney disease, stage 5; D63.1 Anemia in chronic kidney disease; E66.01 Morbid (severe) obesity due to excess calories; Z68.34 Body mass index [BMI] 34.0-34.9, adult; E55.9 Vitamin D deficiency, unspecified; F32.9 Major depressive disorder, single episode, unspecified; H54.8 Legal blindness, as defined in USA; I25.10 Atherosclerotic heart disease of native coronary artery without angina pectoris; I45.81 Long QT syndrome; I08.3 Combined rheumatic disorders of mitral, aortic and tricuspid valves; E78.5 Hyperlipidemia, unspecified; Z99.2 Dependence on renal dialysis; Z79.4 Long term (current) use of insulin; Z79.82 Long term (current) use of aspirin; Z79.899 Other long term (current) drug therapy; Z79.01 Long term (current) use of anticoagulants; Z87.891 Personal history of nicotine dependence; Z77.22 Contact with and (suspected) exposure to environmental tobacco smoke (acute) (chronic); Z86.73 Personal history of transient ischemic attack (TIA), and cerebral infarction without residual deficits; Z99.81 Dependence on supplemental oxygen
CPT/HCPCS: 01844; 36818; 36415; 80048; 82962; 85027; 93005

== ENCOUNTER → 2018-04-21 07:41 | Outpatient (CLI) | payer MEDICARE, SELFPAY ==
--- NOTE | 2018-04-21 13:57 | PFT ---
INTRODUCTION: The patient is a 72-year-old female that presents for pulmonary function testing secondary to a diagnosis of COPD. Respiratory therapy reports good patient effort. Bronchodilators were used during testing. INTERPRETATION: Forced expiration spirometry demonstrates the presence of a severe large airways obstructive ventilatory defect. There is no significant response to aerosolized bronchodilators. Spirograms are of fair quality and do not plateau indicating slow emptying of the lungs. Body plethysmography was performed and reveals a decreased TLC to 2.62 L, 52% of predicted, indicative of a severe restrictive ventilatory impairment. The remainder of the lung volumes are symmetrically reduced. Diffusing capacity by single breath CO is severely reduced at 26% of predicted. There is been improvement in the patient's FEV1 since PFTs were last obtained in June 2017. However, the patient's diffusing capacity has decreased by 26%. IMPRESSION: These pulmonary function studies demonstrate the presence of an irreversible severe mixed ventilatory defect with symmetric reduction in diffusing capacity. There is been worsening of the patient's DLCO since PFTs were last obtained in 2016.
== END ==
PROVIDERS: Family Provider Internal Medicine; PCP Internal Medicine; Visit Provider Nurse Practitioner Acute Care
DX: J44.9 Chronic obstructive pulmonary disease, unspecified (principal)
CPT/HCPCS: 94060; 94726; 94729

== ENCOUNTER → 2018-05-07 12:33 | Outpatient (CLI) | payer MEDICARE, SELFPAY ==
[2018-05-07 13:29] LABS: Anion Gap 8 (5-15); BUN 85 mg/dL (7-18); BUN/Creat Ratio 25.5 RATIO (10-20); Calcium,Total 7.7 mg/dL (8.5-10.1); Chloride 105 mmol/L (98-107); Creatinine, Serum 3.33 mg/dL (0.55-1.02); EST Glomerular Filtration Rate 15 mL/min (>60); Est Glom Filt Rate - Afr Amer 18 mL/min (>60); Glucose 215 mg/dL (74-106); Potassium 4.6 mmol/L (3.5-5.1); Sodium Level 140 mmol/L (136-145)
== END ==
PROVIDERS: Family Provider Internal Medicine; PCP Internal Medicine; Visit Provider Internal Medicine Nephrology
DX: N18.3 Chronic kidney disease, stage 3 (moderate) (principal)
CPT/HCPCS: 36415; 80048

== ENCOUNTER → 2018-05-12 06:27 | Outpatient (CLI) | payer MEDICARE, SELFPAY ==
[2018-05-12 08:12] LABS: Anion Gap 12 (5-15); BUN 98 mg/dL (7-18); BUN/Creat Ratio 27.6 RATIO (10-20); Calcium,Total 7.6 mg/dL (8.5-10.1); Chloride 101 mmol/L (98-107); Creatinine, Serum 3.55 mg/dL (0.55-1.02); EST Glomerular Filtration Rate 14 mL/min (>60); Est Glom Filt Rate - Afr Amer 16 mL/min (>60); Glucose 254 mg/dL (74-106); Sodium Level 139 mmol/L (136-145)
== END ==
PROVIDERS: Family Provider Internal Medicine; PCP Internal Medicine; Visit Provider Internal Medicine Nephrology
DX: N18.3 Chronic kidney disease, stage 3 (moderate) (principal)
CPT/HCPCS: 36415; 80048

== ENCOUNTER → 2018-05-19 07:42 | Outpatient (CLI) | payer MEDICARE, SELFPAY ==
[2018-05-19 08:35] VITALS: PULSE 104; PULSE 113; PULSE 116; PULSE 119; PULSE 64; PULSE 80; PULSE 91; PULSE 93; O2SAT 86; O2SAT 91; O2SAT 94; O2SAT 95; O2SAT 96
--- NOTE | 2018-05-19 08:39 | CPS ---
Patient wears 2 lpm O2 at home. Patient came in on own pulse dose portable concentrator. After 15 minutes on room air SpO2 91%, started testing on room air. By the 1st minute SpO2 86%, patient stated she had little to no shortness of breath. Placed patient on own portable concentrator at 2 lpm pulse dose for the rest of testing.
--- NOTE | 2018-05-19 10:59 | PCM.PSN.6M ---
PSN 6 Minute Walk Test - 6 Minute Walk Test 6 Minute Walk Test: 6 Minute Walk Test PSN:6-Minute Walk Test Start: 05/19/18 08:35 Freq: Status: Active Protocol: [id number] Document 05/19/18 08:35 NEHEMIAS (Rec: 05/19/18 08:41 NEHEMIAS [id number]) 6 Minute Walk Test Date Performed 05/19/18 Time Performed 08:15 Height 5 ft 5 in Weight: 200 lb Weight in Pounds 200.[address]: Rocael Valencia Assistive device used: Walker Pre-test Oxygen Delivery Method Room Air Pulse Ox (%) 91 Pulse Rate (60-100 beats/min) 64 Dyspnea Nabila Scale (0-10) 0 Exertion Nabila Scale (6-20) 6 1st minute Oxygen Delivery Method Room Air Pulse Ox (%) 86 Pulse Rate (60-100 beats/min) 93 Dyspnea Nabila Scale (0-10) 0.5 2nd minute Oxygen Flow Rate (L/min) (L/min) 2 Oxygen Delivery Method Nasal Cannula Pulse Ox (%) 95 Pulse Rate (60-100 beats/min) 91 3rd minute Oxygen Flow Rate (L/min) (L/min) 2 Oxygen Delivery Method Nasal Cannula Pulse Ox (%) 95 Pulse Rate (60-100 beats/min) 104 H 4th minute Oxygen Flow Rate (L/min) (L/min) 2 Oxygen Delivery Method Nasal Cannula Pulse Ox (%) 96 Pulse Rate (60-100 beats/min) 113 H 5th minute Oxygen Flow Rate (L/min) (L/min) 2 Oxygen Delivery Method Nasal Cannula Pulse Ox (%) 95 Pulse Rate (60-100 beats/min) 116 H 6th minute Oxygen Flow Rate (L/min) (L/min) 2 Oxygen Delivery Method Nasal Cannula Pulse Ox (%) 94 Pulse Rate (60-100 beats/min) 119 H Dyspnea Nabila Scale (0-10) 2 Exertion Nabila Scale (6-20) 12 Post-test Oxygen Flow Rate (L/min) (L/min) 2 Oxygen Delivery Method Nasal Cannula Pulse Ox (%) 96 Pulse Rate (60-100 beats/min) 80 Full Laps Walked 12 Partial Lap, Number of Tiles Walked 30 Total Distance Walked (ft) 738 05/19/18 08:39 Cardiopulmonary Services by Gwen Maurer Patient wears 2 lpm O2 at home. Patient came in on own pulse dose portable concentrator. After 15 minutes on room air SpO2 91%, started testing on room air. By the 1st minute SpO2 86%, patient stated she had little to no shortness of breath. Placed patient on own portable concentrator at 2 lpm pulse dose for the rest of testing. Initialized on 05/19/18 08:39 - END OF NOTE - Interpretation Interpretation: The patient ambulated 738 feet over the course of 6 minutes, with use of a walker, beginning on room air. Pretesting oxygen saturation was noted to be 91% on room air. With ambulation, the janes oxygen saturation was 86% at minute 1 of testing. 2 L/min of supplemental oxygen was applied and the patient was able to complete the remainder of the test, while maintaining oxygen saturations at or above 88%. This testing indicated the presence of impaired walk distance and significant exertional oxygen desaturation. - Recommendations Recommendations: 2 L/min of supplemental oxygen should be utilized with exertion.
== END ==
PROVIDERS: Family Provider Internal Medicine; PCP Internal Medicine; Visit Provider Nurse Practitioner Acute Care
DX: J96.21 Acute and chronic respiratory failure with hypoxia (principal); J96.22 Acute and chronic respiratory failure with hypercapnia; N18.3 Chronic kidney disease, stage 3 (moderate)
CPT/HCPCS: 36415; 80048; 80069; 94618

== ENCOUNTER → 2018-05-25 13:09 | Outpatient (CLI) | payer MEDICARE, SELFPAY ==
[2018-05-25 16:50] LABS: BUN 64 mg/dL (7-18); Creatinine, Serum 2.28 mg/dL (0.55-1.02); EST Glomerular Filtration Rate 23 mL/min (>60); Glucose 163 mg/dL (74-106)
[2018-05-25 16:51] LABS: Anion Gap 12 (5-15); BUN/Creat Ratio 28.1 RATIO (10-20); Calcium,Total 8.6 mg/dL (8.5-10.1); Chloride 105 mmol/L (98-107); Est Glom Filt Rate - Afr Amer 27 mL/min (>60); Potassium 4.6 mmol/L (3.5-5.1); Sodium Level 142 mmol/L (136-145)
== END ==
PROVIDERS: Family Provider Internal Medicine; PCP Internal Medicine; Visit Provider Internal Medicine Nephrology
DX: N18.3 Chronic kidney disease, stage 3 (moderate) (principal)
CPT/HCPCS: 36415; 80048

== ENCOUNTER 2018-06-01 09:26 | Outpatient (RCR) | payer MEDICARE, SELFPAY ==
[2018-05-19 08:22] LABS: Anion Gap 10 (5-15); BUN 83 mg/dL (7-18); BUN/Creat Ratio 25.7 RATIO (10-20); Calcium,Total 8.2 mg/dL (8.5-10.1); Chloride 102 mmol/L (98-107); Creatinine, Serum 3.23 mg/dL (0.55-1.02); EST Glomerular Filtration Rate 15 mL/min (>60); Est Glom Filt Rate - Afr Amer 18 mL/min (>60); Glucose 241 mg/dL (74-106); Potassium 4.6 mmol/L (3.5-5.1); Sodium Level 140 mmol/L (136-145)
[2018-06-01 10:22] LABS: BUN 60 mg/dL (7-18); BUN/Creat Ratio 24.9 RATIO (10-20); Calcium,Total 8.1 mg/dL (8.5-10.1); Chloride 108 mmol/L (98-107); Creatinine, Serum 2.41 mg/dL (0.55-1.02); EST Glomerular Filtration Rate 21 mL/min (>60); Est Glom Filt Rate - Afr Amer 26 mL/min (>60); Glucose 218 mg/dL (74-106); Potassium 4.2 mmol/L (3.5-5.1); Sodium Level 141 mmol/L (136-145)
[2018-06-01 15:52] LABS: Albumin, Serum 3.2 g/dL (3.2-5.0)
== END 2018-06-08 07:37 | disposition home or self-care (01) ==
LOC: LAB 09:26
PROVIDERS: Family Provider Internal Medicine; PCP Internal Medicine; Visit Provider Internal Medicine Nephrology
DX: N18.3 Chronic kidney disease, stage 3 (moderate) (principal)
CPT/HCPCS: 36415; 80048

== ENCOUNTER 2018-06-09 07:38 | Outpatient (RCR) | payer MEDICARE, SELFPAY ==
[2018-06-09 09:19] LABS: Albumin, Serum 3.1 g/dL (3.2-5.0); BUN 41 mg/dL (7-18); BUN/Creat Ratio 19.2 RATIO (10-20); Calcium,Total 7.9 mg/dL (8.5-10.1); Chloride 104 mmol/L (98-107); Creatinine, Serum 2.14 mg/dL (0.55-1.02); EST Glomerular Filtration Rate 24 mL/min (>60); Est Glom Filt Rate - Afr Amer 29 mL/min (>60); Glucose 171 mg/dL (74-106); Phosphorus 3.8 mg/dL (2.5-4.9); Potassium 4.2 mmol/L (3.5-5.1); Sodium Level 143 mmol/L (136-145)
== END 2018-06-09 09:00 | disposition home or self-care (01) ==
LOC: LAB 07:38
PROVIDERS: Family Provider Internal Medicine; PCP Internal Medicine; Visit Provider Internal Medicine Nephrology
DX: N18.3 Chronic kidney disease, stage 3 (moderate) (principal)
CPT/HCPCS: 36415; 80069

== ENCOUNTER → 2018-06-24 11:20 | Outpatient (CLI) | payer MEDICARE, SELFPAY ==
[2018-06-24 12:10] LABS: Hematocrit 34.4 % (37-47); Hemoglobin 11.3 g/dl (12.0-15.0); Mean Corp Hgb Conc 32.8 g/gl (32-36); Mean Corpuscular Hgb 31.6 pg (27.0-32.0); Mean Corpuscular Volume 96.1 fL (81-99); Mean Platelet Vol. 9.9 fl (6.2-12.0); Platelet Count 166 K/mm3 (150-450); RBC Distribution Width CV 14.5 % (11.6-14.6); RBC Distribution Width SD 48.4 fl (35.1-43.9); Red Blood Count 3.58 M/mm3 (4.2-5.4); Scan Indicated on CBC? Y/N NO; White Blood Count 5.5 K/mm3 (4.4-11.0)
[2018-06-24 12:30] LABS: Protein, Urine (Random) 34.1 mg/dL (<11.9); Protein:Creat Ratio 310 mg/g CRE (0-200)
[2018-06-24 12:33] LABS: PTHIN 219.2 pg/mL (18.4-80.1); Vitamin D,25 Hydroxy 35.7 ng/mL (29.95-100.01)
[2018-06-24 12:36] LABS: Hemoglobin A1c 7.9 % (4.2-6.3)
[2018-06-24 12:36] LABS: ALB/GLOB Ratio 0.7 RATIO (0.9-2.4); AST(SGOT) 7 U/L (15-37); Alanine Aminotransfer ALT/SGPT 15 U/L (13-56); Albumin, Serum 3.3 g/dL (3.2-5.0); Alkaline Phosphatase 111 U/L (45-117); BUN 41 mg/dL (7-18); BUN/Creat Ratio 17.9 RATIO (10-20); Bilirubin, Direct 0.19 mg/dL (0.00-0.30); Calcium,Total 8.5 mg/dL (8.5-10.1); Chloride 102 mmol/L (98-107); Cholesterol 153 mg/dL (200); Creatinine, Serum 2.29 mg/dL (0.55-1.02); EST Glomerular Filtration Rate 22 mL/min (>60); Est Glom Filt Rate - Afr Amer 27 mL/min (>60); Globulin 4.7 g/dL (2.2-4.2); Glucose 92 mg/dL (74-106); High Density Lipoprotein 35 mg/dL; Phosphorus 2.9 mg/dL (2.5-4.9); Potassium 4.1 mmol/L (3.5-5.1); Sodium Level 142 mmol/L (136-145); Triglycerides 136 mg/dL; Very Low Density Lipoprotein 27 mg/dL (5-40)
== END ==
PROVIDERS: Family Provider Internal Medicine; PCP Internal Medicine; Visit Provider Internal Medicine Nephrology
DX: E11.22 Type 2 diabetes mellitus with diabetic chronic kidney disease (principal); N18.4 Chronic kidney disease, stage 4 (severe); D63.1 Anemia in chronic kidney disease; E78.5 Hyperlipidemia, unspecified; E55.9 Vitamin D deficiency, unspecified; N25.81 Secondary hyperparathyroidism of renal origin
CPT/HCPCS: 36415; 80061; 80069; 82247; 82248; 82306; 82570; 83036; 83970; 84075; 84156; 84450; 84460; 85027

== ENCOUNTER 2018-07-03 08:45 | Outpatient (RCR) | payer MEDICARE, SELFPAY | END 2018-07-05 23:59 | LOC: WC 08:45 | PROVIDERS: Family Provider Internal Medicine; PCP Internal Medicine; Visit Provider Nurse Practitioner | DX: Z09 Encounter for follow-up examination after completed treatment for conditions other than malignant neoplasm (principal) ==

== ENCOUNTER → 2018-08-10 10:03 | Outpatient (CLI) | payer MEDICARE, SELFPAY ==
[2018-08-10 10:49] LABS: Hematocrit 32.7 % (37-47); Hemoglobin 10.5 g/dl (12.0-15.0); Mean Corp Hgb Conc 32.1 g/gl (32-36); Mean Corpuscular Hgb 32.2 pg (27.0-32.0); Mean Corpuscular Volume 100.3 fL (81-99); Mean Platelet Vol. 9.4 fl (6.2-12.0); Platelet Count 163 K/mm3 (150-450); RBC Distribution Width CV 14.9 % (11.6-14.6); RBC Distribution Width SD 52.6 fl (35.1-43.9); Red Blood Count 3.26 M/mm3 (4.2-5.4); White Blood Count 4.9 K/mm3 (4.4-11.0)
[2018-08-10 10:50] LABS: Scan Indicated on CBC? Y/N NO
[2018-08-10 10:53] LABS: Protein:Creat Ratio 754 mg/g CRE (0-200)
[2018-08-10 11:27] LABS: Albumin, Serum 3.2 g/dL (3.2-5.0); BUN 44 mg/dL (7-18); BUN/Creat Ratio 21.4 RATIO (10-20); Calcium,Total 8.6 mg/dL (8.5-10.1); Chloride 103 mmol/L (98-107); Creatinine, Serum 2.06 mg/dL (0.55-1.02); EST Glomerular Filtration Rate 25 mL/min (>60); Est Glom Filt Rate - Afr Amer 31 mL/min (>60); Glucose 128 mg/dL (74-106); Phosphorus 3.7 mg/dL (2.5-4.9); Potassium 4.6 mmol/L (3.5-5.1); Sodium Level 142 mmol/L (136-145)
[2018-08-10 11:33] LABS: PTHIN 169.7 pg/mL (18.4-80.1); Vitamin D,25 Hydroxy 37.3 ng/mL (29.95-100.01)
== END ==
PROVIDERS: Family Provider Family Medicine; PCP Family Medicine; Referring Provider Internal Medicine Nephrology; Visit Provider Internal Medicine Nephrology
DX: N18.4 Chronic kidney disease, stage 4 (severe) (principal); E55.9 Vitamin D deficiency, unspecified
CPT/HCPCS: 36415; 80069; 82306; 82570; 83970; 84156; 85027

== ENCOUNTER → 2018-09-18 13:18 | Outpatient (CLI) | payer MEDICARE, SELFPAY ==
[2018-09-09 14:39] VITALS: BMI 36.6
[2018-09-18 13:50] LABS: Hematocrit 31.2 % (37-47); Hemoglobin 9.7 g/dl (12.0-15.0); Mean Corp Hgb Conc 31.1 g/gl (32-36); Mean Corpuscular Hgb 31.9 pg (27.0-32.0); Mean Corpuscular Volume 102.6 fL (81-99); Mean Platelet Vol. 9.4 fl (6.2-12.0); Platelet Count 134 K/mm3 (150-450); RBC Distribution Width CV 15.3 % (11.6-14.6); Red Blood Count 3.04 M/mm3 (4.2-5.4); White Blood Count 5.8 K/mm3 (4.4-11.0)
[2018-09-18 13:54] LABS: Scan Indicated on CBC? Y/N NO
[2018-09-18 14:19] LABS: Albumin, Serum 3.4 g/dL (3.2-5.0); Anion Gap 5 (5-15); BUN 51 mg/dL (7-18); BUN/Creat Ratio 23.4 RATIO (10-20); Calcium,Total 8.9 mg/dL (8.5-10.1); Chloride 100 mmol/L (98-107); Creatinine, Serum 2.18 mg/dL (0.55-1.02); EST Glomerular Filtration Rate 24 mL/min (>60); Est Glom Filt Rate - Afr Amer 29 mL/min (>60); Glucose 126 mg/dL (74-106); Potassium 4.7 mmol/L (3.5-5.1); Sodium Level 141 mmol/L (136-145)
[2018-09-18 14:21] LABS: Protein:Creat Ratio 1517 mg/g CRE (0-200)
[2018-09-18 14:29] LABS: PTHIN 102.8 pg/mL (18.4-80.1)
[2018-09-18 14:29] LABS: Vitamin D,25 Hydroxy 46.5 ng/mL (29.95-100.01)
--- OUTSIDE RECORDS SUMMARY | 2018-11-04 08:55 | XMS RPT_ITS ---
:1945 Author Organization OHIP Support Name Relationship Address Phone JOSE JEY Unavailable [address] [phone] [place] [address] NORBERT GARCIA Unavailable [address] + [place] [address] R Unavailable Unavailable Unavailable JEY GARCIA Unavailable [address] [phone] [place] [address] NORBERT GARCIA Unavailable [address] + [place] [address] R Unavailable Unavailable Unavailable JEY GARCIA Unavailable [address] [phone] [place] [address] NORBERT GARCIA Unavailable [address] + [place] [address] R Unavailable Unavailable Unavailable JEY GARCIA Unavailable [address] [phone] [place] [address] NORBERT GARCIA Unavailable [address] + [place] [address] R Unavailable Unavailable Unavailable JEY GARCIA Unavailable [address] [phone] [place] [address] NORBERT GARCIA Unavailable [address] + [place] [address] R Unavailable Unavailable Unavailable JEY GARCIA Unavailable [address] [phone] [place] [address] NORBERT GARCIA Unavailable [address] + [place] [address] R Unavailable Unavailable Unavailable JEY GARCIA Unavailable [address] [phone] [place] [address] NORBERT GARCIA Unavailable [address] + [place] [address] R Unavailable Unavailable Unavailable JEY GARCIA Unavailable [address] [phone] [place] [address] NORBERT GARCIA Unavailable [address] + [place] [address] R Unavailable Unavailable Unavailable JEY GARCIA Unavailable [address] [phone] [place] [address] NORBERT GARCIA Unavailable [address] + [place] [address] R Unavailable Unavailable Unavailable JEY GARCIA Unavailable [address] [phone] [place] [address] NORBERT GARCIA Unavailable [address] + [place] [address] R Unavailable Unavailable Unavailable JYE GARCIA Unavailable [address] [place] [address] [place] [address] NORBERT GARCIA Unavailable [address] + [place] [address] R Unavailable Unavailable Unavailable JEY GARCIA Unavailable [address] [phone] [place] [address] NORBERT GARCIA Unavailable [address] + [place] [address] R Unavailable Unavailable Unavailable JEY GARCIA Unavailable [address] [phone] [place] [address] NORBERT GARCIA Unavailable [address] + [place] [address] R Unavailable Unavailable Unavailable JEY GARCIA Unavailable [address] [phone] [place] [address] NORBERT GARCIA Unavailable [address] + [place] [address] R Unavailable Unavailable Unavailable JEY GARCIA Unavailable [address] [phone] [place] [address] NORBERT GARCIA Unavailable [address] + [place] [address] R Unavailable Unavailable Unavailable JEY GARCIA Unavailable [address] [phone] [place] [address] NORBERT GARCIA Unavailable [address] + [place] [address] R Unavailable Unavailable Unavailable JEY GARCIA Unavailable [address] [phone] [place] [address] NORBERT GARCIA Unavailable [address] [phone] [place] [address] R Unavailable Unavailable Unavailable JEY GARCIA Unavailable [address] [phone] [place] [address] NORBERT GARCIA Unavailable [address] [phone] [place] [address] R Unavailable Unavailable Unavailable JOSE JEY Unavailable [address] [phone] [place] [address] NORBERT GARCIA Unavailable [address] [phone] [place] [address] R Unavailable Unavailable Unavailable JOSE JEY Unavailable [address] [phone] [place] [address] JOSE GARCIAELLE Unavailable [address] [phone] [place] [address] R Unavailable Unavailable Unavailable JEY GARCIA Unavailable [address] [phone] [place] [address] NORBERT GARCIA Unavailable [address] [phone] [place] [address] R Unavailable Unavailable Unavailable JEY GARCIA Unavailable [address] [phone] [place] [address] NORBERT GARCIA Unavailable [address] [phone] [place] [address] R Unavailable Unavailable Unavailable JEY GARCIA Unavailable [address] [phone] [place] [address] JOSE GARCIAELLE Unavailable [address] [phone] [place] [address] R Unavailable Unavailable Unavailable JEY GARCIA Unavailable [address] [phone] [place] [address] NORBERT GARCIA Unavailable [address] [phone] [place] [address] R Unavailable Unavailable Unavailable JEY GARCIA Unavailable [address] [phone] [place] [address] JOSE GARCIAELLE Unavailable [address] [phone] [place] [address] R Unavailable Unavailable Unavailable GARCIA, JEY Unavailable [address] [phone] [place] [address] NORBERT GARCIA Unavailable [address] [phone] [place] [address] R Unavailable Unavailable Unavailable GARCIA, JEY Unavailable [address] [phone] [place] [address] NORBERT GARCIA Unavailable [address] [phone] [place] [address] R Unavailable Unavailable Unavailable GARCIA, JEY Unavailable [address] [phone] [place] [address] JOSE GARCIAELLE Unavailable [address] [phone] [place] [address] R Unavailable Unavailable Unavailable GARCIA, JEY Unavailable [address] [phone] [place] [address] JOSE AGRCIAELLE Unavailable [address] [phone] [place] [address] R Unavailable Unavailable Unavailable GARCIA JEY Unavailable [address] [phone] [place] [address] NORBERT GARCIA Unavailable [address] [phone] [place] [address] R Unavailable Unavailable Unavailable GARCIA JEY Unavailable [address] [phone] [place] [address] NORBERT GARCIA Unavailable [address] [phone] [place] [address] R Unavailable Unavailable Unavailable JEY GARCIA Unavailable [address] [phone] [place] [address] NORBERT GARCIA Unavailable [address] [phone] [place] [address] R Unavailable Unavailable Unavailable JOSE JEY Unavailable [address] [phone] [place] [address] NORBERT GARCIA Unavailable [address] [phone] [place] [address] R Unavailable Unavailable Unavailable JEY GARCIA Unavailable [address] [phone] [place] [address] NORBERT GARCIA Unavailable Unavailable + [place] [address] R Unavailable Unavailable Unavailable GARCIA, JEY Unavailable [address] [phone] [place] [address] NORBERT GARCIA Unavailable Unavailable + [place] [address] R Unavailable Unavailable Unavailable JEY GARCIA Unavailable [address] [phone] [place] [address] JOSE GARCIAELLE Unavailable [address] [phone] [place] [address] R Unavailable Unavailable Unavailable GARCIAJEY Unavailable [address] [phone] [place] [address] NORBERT GARCIA Unavailable Unavailable + [place] [address] R Unavailable Unavailable Unavailable JEY GARCIA Unavailable [address] [phone] [place] [address] NORBERT GARCIA Unavailable . + [place] [address] R Unavailable Unavailable Unavailable JEY GARCIA Unavailable [address] [phone] [place] [address] NORBERT GARCIA Unavailable Unavailable + [place] [address] R Unavailable Unavailable Unavailable JEY GARCIA Unavailable [address] [phone] [place] [address] NORBERT GARCIA Unavailable Unavailable + [place] [address] R Unavailable Unavailable Unavailable JEY GARCIA Unavailable [address] [phone] [place] [address] NORBERT GARCIA Unavailable Unavailable + [place] [address] R Unavailable Unavailable Unavailable GARCIAJEY LEE Unavailable [address] [phone] [place] [address] NORBERT GARCIA Unavailable . + [place] [address] R Unavailable Unavailable Unavailable GARCIA, JEY Unavailable [address] [phone] [place] [address] NORBERT GARCIA Unavailable Unavailable + [place] [address] R Unavailable Unavailable Unavailable GARCIAJEY LEE Unavailable [address] [phone] [place] [address] NORBERT GARCIA Unavailable [address] [phone] [place] [address] R Unavailable Unavailable Unavailable GARCIA, JOHN Unavailable [address] [phone] [place] [address] NORBERT GARCIA Unavailable Unavailable + [place] [address] R Unavailable Unavailable Unavailable GARCIAJEY LEE Unavailable [address] [phone] [place] [address] NORBERT GARCIA Unavailable . + [place] [address] R Unavailable Unavailable Unavailable GARCIAJEY LEE Unavailable [address] [phone] [place] [address] NORBERT GARCIA Unavailable Unavailable + [place] [address] R Unavailable Unavailable Unavailable GARCIAJEY LEE Unavailable [address] [phone] [place] [address] NORBERT GARCIA Unavailable Unavailable + [place] [address] R Unavailable Unavailable Unavailable GARCIAJEY LEE Unavailable [address] [phone] [place] [address] NORBERT GARCIA Unavailable Unavailable + [place] [address] R Unavailable Unavailable Unavailable GARCIA, JOHN Unavailable [address] [phone] [place] [address] NORBERT GARCIA Unavailable [address] [phone] [place] [address] R Unavailable Unavailable Unavailable GARCIAJEY Unavailable [address] [phone] [place] [address] NORBERT GARCIA Unavailable Unavailable + [place] [address] R Unavailable Unavailable Unavailable GARCIAJEY LEE Unavailable [address] [phone] [place] [address] NORBERT GARCIA Unavailable Unavailable + [place] [address] R Unavailable Unavailable Unavailable GARCIAJEY Unavailable [address] [phone] [place] [address] NORBERT GARCIA Unavailable Unavailable + [place] [address] R Unavailable Unavailable Unavailable GARCIA, JEY Unavailable [address] [phone] [place] [address] NORBERT GARCIA Unavailable Unavailable + [place] [address] R Unavailable Unavailable Unavailable JEY GARCIA Unavailable [address] [phone] [place] [address] JOSE NORBERT Unavailable Unavailable + [place] [address] R Unavailable Unavailable Unavailable GARCIAJEY LEE Unavailable [address] [phone] [place] [address] JOSE NORBERT Unavailable Unavailable + [place] [address] R Unavailable Unavailable Unavailable JEY GARCIA Unavailable [address] [phone] [place] [address] JOSE GARCIAELLE Unavailable Unavailable + [place] [address] R Unavailable Unavailable Unavailable JEY GARCIA Unavailable [address] [phone] [place] [address] NORBERT GARCIA Unavailable Unavailable + [place] [address] R Unavailable Unavailable Unavailable JEY GARCIA Unavailable [address] [phone] [place] [address] NORBERT GARCIA Unavailable Unavailable + [place] [address] R Unavailable Unavailable Unavailable JEY GARCIA Unavailable [address] [phone] [place] [address] NORBERT GARCIA Unavailable Unavailable + [place] [address] R Unavailable Unavailable Unavailable GARCIAJEY LEE Unavailable [address] [phone] [place] [address] NORBERT GARCIA Unavailable . + [place] [address] R Unavailable Unavailable Unavailable GARCIAJEY LEE Unavailable [address] [phone] [place] [address] NORBERT GARCIA Unavailable Unavailable + [place] [address] R Unavailable Unavailable Unavailable Norbert Garcia Unavailable . + [place] [address] GARCIA JEY Unavailable [address] + [place] [address] R Unavailable Unavailable Unavailable JOSE JEY Unavailable [address] [phone] [place] [address] JOSE NORBERT Unavailable Unavailable + [place] [address] R Unavailable Unavailable Unavailable Garcia, Norbert Unavailable . + [place] [address] JOSE JEY Unavailable [address] [facility] + [place] [address] R Unavailable Unavailable Unavailable Garcia, Norbert Unavailable . + [place] [address] JOSE, JEY Unavailable [address] [phone] [place] [address] R Unavailable Unavailable Unavailable Garcia, Norbert Unavailable . + [place] [address] JOSE JEY Unavailable [address] [phone] [place] [address] R Unavailable Unavailable Unavailable Garcia, Norbert Unavailable . + [place] [address] JOSE JEY Unavailable [address] [facility] + [place] [address] R Unavailable Unavailable Unavailable Jose Norbert Unavailable . + [place] [address] JOSE JEY Unavailable [address] [phone] [place] [address] R Unavailable Unavailable Unavailable Jose Norbert Unavailable . + [place] [address] JOSE JEY Unavailable [address] [phone] [place] [address] R Unavailable Unavailable Unavailable Jose Norbert Unavailable . + [place] [address] JOSE, JEY Unavailable [address] [phone] [place] [address] R Unavailable Unavailable Unavailable Jose Norbert Unavailable . + [place] [address] JOSE JEY Unavailable [address] [phone] [place] [address] R Unavailable Unavailable Unavailable Garcia Norbert Unavailable . + [place] [address] JOSE JEY Unavailable [address] [facility] + [place] [address] R Unavailable Unavailable Unavailable Garcia, Norbert Unavailable . + [place] [address] JOSE JEY Unavailable [address] [place] [address] + [place] [address] R Unavailable Unavailable Unavailable Garcia, Norbert Unavailable . + [place] [address] JOSE, JEY Unavailable [address] [place] [address] + [place] [address] R Unavailable Unavailable Unavailable Garcia, Norbert Unavailable . + [place] [address] JOSE, JEY Unavailable [address] [place] [address] + [place] [address] R Unavailable Unavailable Unavailable Garcia, Norbert Unavailable . + [place] [address] JOSE JEY Unavailable [address] [place] [address] [place] [address] R Unavailable Unavailable Unavailable Garcia, Norbert Unavailable . + [place] [address] JOSE JEY Unavailable [address] [place] [address] [place] [address] R Unavailable Unavailable Unavailable Garcia, Norbert Unavailable . + [place] [address] JEY GARCIA Unavailable [address] [place] [address] [place] [address] R Unavailable Unavailable Unavailable Garcia, Norbert Unavailable . + [place] [address] JOSE JEY Unavailable [address] [place] [address] + [place] [address] R Unavailable Unavailable Unavailable Garcia, Norbert Unavailable . + [place] [address] JOSE, JEY Unavailable [address] [place] [address] + [place] [address] R Unavailable Unavailable Unavailable Garcia, Norbert Unavailable . + [place] [address] JOSE, JEY Unavailable [address] [place] [address] + [place] [address] R Unavailable Unavailable Unavailable Garcia, Norbert Unavailable . + [place] [address] JOSE JEY Unavailable [address] [facility] + [place] [address] R Unavailable Unavailable Unavailable Garcia, Norbert Unavailable . + [place] [address] GARCIA, JEY Unavailable [address] [phone] [place] [address] R Unavailable Unavailable Unavailable Garcia, Norbert Unavailable . + [place] [address] GARCIA, JEY Unavailable [address] [facility] + [place] [address] R Unavailable Unavailable Unavailable GARCIA, JEY Unavailable [address] [phone] [place] [address] GARCIA, NORBERT Unavailable Unavailable + [place] [address] R Unavailable Unavailable Unavailable Garcia, Norbert Unavailable . + [place] [address] GARCIA, JEY Unavailable [address] [facility] + [place] [address] R Unavailable Unavailable Unavailable GARCIA, JEY Unavailable [address] [phone] [place] [address] GARCIA, NORBERT Unavailable Unavailable + [place] [address] R Unavailable Unavailable Unavailable Garcia, Norbert Unavailable . + [place] [address] GARCIA, JEY Unavailable [address] [phone] [place] [address] R Unavailable Unavailable Unavailable Garcia, Norbert Unavailable . + [place] [address] GARCIA, JEY Unavailable [address] [phone] [place] [address] R Unavailable Unavailable Unavailable Garcia, Norbert Unavailable . + [place] [address] GARCIA, JEY Unavailable [address] [phone] [place] [address] R Unavailable Unavailable Unavailable Garcia, Norbert Unavailable . + [place] [address] GARCIA, JEY Unavailable [address] [phone] [place] [address] R Unavailable Unavailable Unavailable Garcia, Norbert Unavailable . + [place] [address] JOSE JEY Unavailable [address] [phone] [place] [address] R Unavailable Unavailable Unavailable Garcia, Norbert Unavailable . + [place] [address] JOSE JEY Unavailable [address] [phone] [place] [address] R Unavailable Unavailable Unavailable Garcia, Norbert Unavailable . + [place] [address] JOSE JEY Unavailable [address] [phone] [place] [address] R Unavailable Unavailable Unavailable Garcia, Norbert Unavailable . + [place] [address] JOSE JEY Unavailable [address] [phone] [place] [address] R Unavailable Unavailable Unavailable Garcia, Norbert Unavailable . + [place] [address] JOSE JEY Unavailable [address] [phone] [place] [address] R Unavailable Unavailable Unavailable GARCIA, JEY Unavailable [address] [phone] [place] [address] GARCIA NORBERT Unavailable Unavailable + [place] [address] R Unavailable Unavailable Unavailable GARCIA, JEY Unavailable [address] [phone] [place] [address] GARCIA, NORBERT Unavailable Unavailable + [place] [address] R Unavailable Unavailable Unavailable Garcia, Norbert Unavailable . + [place] [address] GARCIA, JEY Unavailable [address] [phone] [place] [address] R Unavailable Unavailable Unavailable GARCIA, JEY Unavailable [address] [phone] [place] [address] GARCIA, NORBERT Unavailable Unavailable + [place] [address] R Unavailable Unavailable Unavailable GARCIA, JEY Unavailable [address] [place] [address] [place] [address] NORBERT GARCIA Unavailable Unavailable + [place] [address] R Unavailable Unavailable Unavailable Norbert Garcia Unavailable . + [place] [address] JEY GARCIA Unavailable [address] [phone] [place] [address] R Unavailable Unavailable Unavailable Care Team Providers Name Role Phone BEREKET HAMMER (PROFESSIONAL ARCHITECT) Attending Unavailable BEREKET HAMMER (PROFESSIONAL ARCHITECT) Referring Unavailable MARNIE NIELSON Attending Unavailable RENY BANDA (TOP LOADER) Attending Unavailable MAT DUFFY Attending Unavailable MAT DUFFY Attending Unavailable MAT DUFFY Referring Unavailable Severiano Kumar Attending Unavailable Severiano Kumar Referring Unavailable [facility] Care Unavailable Duffy [facility] Care Unavailable Ashelfah, Ghasem Admitting Unavailable Rocael Valencia Consulting Unavailable Irene Wilson Attending Unavailable Ortiz Markham Consulting Unavailable BakVishal olivaresiz Consulting Unavailable Tanphaichitr, Natthavat Consulting Unavailable Karthik Anoop Consulting Unavailable Ashelfah, Ghasem Admitting Unavailable Ashelfah, Ghasem Attending Unavailable [facility] Care Unavailable Ashelfah, Ghasem Consulting Unavailable Ashelfah, Ghasem Admitting Unavailable Viviana Childers PROFESSIONAL ARCHITECT-C Attending Unavailable [facility] Mat [facility] Unavailable Rocael Valencia Consulting Unavailable Ortiz Markham Consulting Unavailable Ashelfah, Ghasem Consulting Unavailable Ashelfah, Ghasem Admitting Unavailable Rocael Valencia Attending Unavailable [facility] Unavailable Rocael Valencia Consulting Unavailable Ortiz Markham Consulting Unavailable Ashelfah, Ghasem Consulting Unavailable Ashelfah, Ghasem Admitting Unavailable Reinier Lang Attending Unavailable [facility] Care Unavailable Rocael Valencia Consulting Unavailable Ortiz Markham Consulting Unavailable Ashelfah, Ghasem Consulting Unavailable Ashelfah, Ghasem Admitting Unavailable Ashelfah, Ghasem Attending Unavailable [facility] Care Unavailable Rocael Valencia Consulting Unavailable Ortiz Markham Consulting Unavailable Ashelfah, Ghasem Consulting Unavailable Ashelfah, Ghasem Admitting Unavailable Viviana Childers PROFESSIONAL ARCHITECT-C Attending Unavailable [facility] Unavailable Erik, Rocael Consulting Unavailable Ortiz Markham Consulting Unavailable Ashelfah, Ghasem Consulting Unavailable Ashelfah, Ghasem Admitting Unavailable Rocael Valencia Attending Unavailable [facility] Unavailable Erik, Rocael Consulting Unavailable Ortiz Markham Consulting Unavailable Ashelfah, Ghasem Consulting Unavailable Ashelfah, Ghasem Admitting Unavailable Reinier Lang Attending Unavailable [facility] Unavailable ErikRocael helton Consulting Unavailable Ortiz Markham Consulting Unavailable Ashelfah, Ghasem Consulting Unavailable Ashelfah, Ghasem Admitting Unavailable Ashelfah, Ghasem Attending Unavailable [facility] Unavailable ErikRocael helton Consulting Unavailable Ortiz Markham Consulting Unavailable Ashelfah, Ghasem Consulting Unavailable Ashelfah, Ghasem Admitting Unavailable Ortiz Markham Attending Unavailable [facility] Unavailable Rocael Valencia Consulting Unavailable Ortiz Markham Consulting Unavailable Ashelfah, Ghasem Consulting Unavailable Ashelfah, Ghasem Admitting Unavailable Ashelfah, Ghasem Attending Unavailable [facility] Unavailable Rocael Valencia Consulting Unavailable Ortiz Markham Consulting Unavailable Ashelfah, Ghasem Consulting Unavailable Ashelfah, Ghasem Admitting Unavailable Ortiz Markham Attending Unavailable [facility] Unavailable ErikRocael helton Consulting Unavailable Ortiz Markham Consulting Unavailable Bakhous, Aziz Consulting Unavailable Ashelfah, Ghasem Consulting Unavailable Ashelfah, Ghasem Admitting Unavailable Viviana Childers PROFESSIONAL ARCHITECT-C Attending Unavailable [facility] Unavailable ErikRocael helton Consulting Unavailable Ortiz Markham Consulting Unavailable Bakneydas, Aziz Consulting Unavailable Jeevan Machado Consulting Unavailable Ashelfah, Ghasem Admitting Unavailable Jeevan Machado Attending Unavailable [facility] Unavailable ErikRocael helton Consulting Unavailable Ortiz Markham Consulting Unavailable Bakneydas, Aziz Consulting Unavailable Tanphaichitr, Natthavat Consulting Unavailable Jeevan Machado Consulting Unavailable Ashelfah, Ghasem Admitting Unavailable Aydin Carroll D.O. Attending Unavailable [facility] Unavailable ErikRocael helton Consulting Unavailable Ortiz Markham Consulting Unavailable Bakhous, Aziz Consulting Unavailable Tanphaichitr, Natthavat Consulting Unavailable Jeevan Machado Consulting Unavailable Ashelfah, Ghasem Admitting Unavailable Viviana Childers PROFESSIONAL ARCHITECT-C Attending Unavailable [facility] Unavailable ErikRocael helton Consulting Unavailable Ortiz Markham Consulting Unavailable Bakhous, Aziz Consulting Unavailable Tanphaichitr, Natthavat Consulting Unavailable Jeevan Machado Consulting Unavailable Ashelfah, Ghasem Admitting Unavailable Jeevan Machado Attending Unavailable [facility] Unavailable Rocael Valencia Consulting Unavailable Ortiz Markham Consulting Unavailable Bakhous, Aziz Consulting Unavailable Tanphaichitr, Natthavat Consulting Unavailable Jeevan Machado Consulting Unavailable Ashelfah, Ghasem Admitting Unavailable Aydin Carroll D.O. Attending Unavailable [facility] Unavailable Rocael Valencia Consulting Unavailable Ortiz Markham Consulting Unavailable Bakhous, Aziz Consulting Unavailable Tanphaichitr, Natthavat Consulting Unavailable Jeevan Machado Consulting Unavailable Ashelfah, Ghasem Admitting Unavailable Viviana Childers PROFESSIONAL ARCHITECT-C Attending Unavailable [facility] Unavailable Rocael Valencia Consulting Unavailable Ortiz Markham Consulting Unavailable Bakhous, Aziz Consulting Unavailable Tanphaichitr, Natthavat Consulting Unavailable Jeevan Machado Consulting Unavailable Ashelfah, Ghasem Admitting Unavailable Jeevan Machado Attending Unavailable [facility] Unavailable Rocael Valencia Consulting Unavailable Ortiz Markham Consulting Unavailable Bakhous, Aziz Consulting Unavailable Tanphaichitr, Natthavat Consulting Unavailable Jeevan Machado Consulting Unavailable Ashelf, Ghasem Admitting Unavailable [facility] Unavailable Rocael Valencia Consulting Unavailable Aydin Carroll D.O. Attending Unavailable Ortiz Markham Consulting Unavailable Bakhous, Aziz Consulting Unavailable Tanphaichitr, Natthavat Consulting Unavailable Jeevan Machado Consulting Unavailable Ashelfah, Ghasem Admitting Unavailable Viviana Childers PROFESSIONAL ARCHITECT-C Attending Unavailable [facility] Unavailable Rocael Valencia Consulting Unavailable Ortiz Markham Consulting Unavailable Bakhous, Aziz Consulting Unavailable Tanphaichitr, Natthavat Consulting Unavailable Jeevan Machado Consulting Unavailable Ashelfah, Ghasem Admitting Unavailable Aydin Brown, D.O. Attending Unavailable [facility] Unavailable ErikRocael helton Consulting Unavailable David, Ortiz Consulting Unavailable Bakhous, Aziz Consulting Unavailable Tanphaichitr, Natthavat Consulting Unavailable Jeevan Machado Consulting Unavailable Ashelfah, Ghasem Admitting Unavailable Jeevan Machado Attending Unavailable [facility] Unavailable Erik, Rocael Consulting Unavailable David, Ortiz Consulting Unavailable Bakhous, Aziz Consulting Unavailable Tanphaichitr, Natthavat Consulting Unavailable Jeevan Machado Consulting Unavailable Ashelfah, Ghasem Admitting Unavailable Viviana Childers Attending Unavailable [facility] Unavailable Erik, Rocael Consulting Unavailable David, Ortiz Consulting Unavailable Bakhous, Aziz Consulting Unavailable Tanphaichitr, Natthavat Consulting Unavailable Jeevan Machado Consulting Unavailable Ashelfah, Ghasem Admitting Unavailable Aydin Carroll D.O. Attending Unavailable [facility] Unavailable Erik, Rocael Consulting Unavailable Ortiz Markham Consulting Unavailable Bakhous, Aziz Consulting Unavailable Tanphaichitr, Natthavat Consulting Unavailable Jeevan Machado Consulting Unavailable Ashelfah, Ghasem Admitting Unavailable Adyin Carroll D.O. Attending Unavailable [facility] Unavailable Erik, Rocael Consulting Unavailable Ortiz Markham Consulting Unavailable Bakhous, Aziz Consulting Unavailable Tanphaichitr, Natthavat Consulting Unavailable Jeevan Machado Consulting Unavailable Ashelfah, Ghasem Admitting Unavailable Jeevan Machado Attending Unavailable [facility] Unavailable Erik, Rocael Consulting Unavailable Ortiz Markham Consulting Unavailable Bakhous, Aziz Consulting Unavailable Tanphaichitr, Natthavat Consulting Unavailable Jeevan Machado Consulting Unavailable Ashelfah, Ghasem Admitting Unavailable Aydin Carroll D.O. Attending Unavailable [facility] Unavailable Erik, Rocael Consulting Unavailable Ortiz Markham Consulting Unavailable Bakhous, Aziz Consulting Unavailable Tanphaichitr, Natthavat Consulting Unavailable Jeevan Machado Consulting Unavailable Ashelfah, Ghasem Admitting Unavailable Jeevan Machado Attending Unavailable [facility] Unavailable Erik, Rocael Consulting Unavailable David, Ortiz Consulting Unavailable Bakhous, Aziz Consulting Unavailable Tanphaichitr, Natthavat Consulting Unavailable Jeevan Machado Consulting Unavailable Ashelfah, Ghasem Admitting Unavailable Evangelina Hendricks PA-C Attending Unavailable Duffy, Mat Primary Care Unavailable ErikRocael helton Consulting Unavailable Ortiz Markham Consulting Unavailable Bakhous, Aziz Consulting Unavailable Tanphaichitr, Natthavat Consulting Unavailable Cebul, Anoop Consulting Unavailable Gbaruk, Kombian Consulting Unavailable Ashelfah, Ghasem Admitting Unavailable Torstenl Anoop Attending Unavailable Duffy, Mat Primary Care Unavailable ErikRocael helton Consulting Unavailable Ortiz Markham Consulting Unavailable Bakhous, Aziz Consulting Unavailable Tanphaichitr, Natthavat Consulting Unavailable Cebul, Anoop Consulting Unavailable Gbaruk, Kombian Consulting Unavailable Ashelfah, Ghasem Admitting Unavailable Duffy, Mat Primary Care Unavailable Rocael Valencia Consulting Unavailable Yari Cash Attending Unavailable Ortiz Markham Consulting Unavailable Bakhous, Aziz Consulting Unavailable Tanphaichitr, Natthavat Consulting Unavailable Cebul, Anoop Consulting Unavailable Gbaruk, Kombian Consulting Unavailable Ashelfah, Ghasem Admitting Unavailable Duffy, Mat Primary Care Unavailable Rocael Valencia Consulting Unavailable Yari Cash Attending Unavailable Ortiz Markham Consulting Unavailable Bakhous, Aziz Consulting Unavailable Tanphaichitr, Natthavat Consulting Unavailable Cebul, Anoop Consulting Unavailable Gbaruk, Kombian Consulting Unavailable [facility], Mat Primary Care Unavailable Irma Rockwell Attending Unavailable Rocael Valencia Attending Unavailable Ashelfah, Ghasem Referring Unavailable Alice, Jayaprakash Attending Unavailable Alice, Jayaprakash Referring Unavailable Duffy, Mat Primary Care Unavailable Josi Hickman Attending Unavailable Jeevan Machado Referring Unavailable Rocael Valencia Attending Unavailable Jeevan Machado Referring Unavailable Josi Hickman Attending Unavailable Duffy, Mat Referring Unavailable Duffy, Mat Primary Care Unavailable Alice, Jayaprakash Attending Unavailable Alice, Jayaprakash Referring Unavailable Duffy, Mat Primary Care Unavailable Duffy, Mat Primary Care Unavailable Gbaruk, Kombian Admitting Unavailable Alice, Jayaprakash Consulting Unavailable Ashelfah, Ghasem Attending Unavailable Rocael Valencia Consulting Unavailable Cebul, Anoop Consulting Unavailable Darien Mcclendon Attending Unavailable Jeevan Machado Referring Unavailable Gbaruk, Kombian Admitting Unavailable [facility] Unavailable Erik, Rocael Consulting Unavailable Magnus Gwyn Attending Unavailable Alice, Jayaprakash Consulting Unavailable Gbaruk, Kombian Consulting Unavailable Gbaruk, Kombian Admitting Unavailable Ashelfah, Ghasem Attending Unavailable [facility] Unavailable Alice, Jayaprakash Consulting Unavailable Erik, Rocael Consulting Unavailable Ashelfah, Ghasem Consulting Unavailable Gbaruk, Kombian Admitting Unavailable Viviana Childers PROFESSIONAL ARCHITECT-C Attending Unavailable [facility] Unavailable Alice, Jayaprakash Consulting Unavailable Erik, Rocael Consulting Unavailable Ashelfah, Ghasem Consulting Unavailable Gbaruk, Kombian Admitting Unavailable Erik Rocael Attending Unavailable [facility] Unavailable Alice, Jayaprakash Consulting Unavailable Erik, Rocael Consulting Unavailable Ashelfah, Ghasem Consulting Unavailable Gbaruk, Kombian Admitting Unavailable Ashelfah, Ghasem Attending Unavailable [facility] Unavailable Alice, Jayaprakash Consulting Unavailable Erik, Rocael Consulting Unavailable Ashelfah, Ghasem Consulting Unavailable Gbaruk, Kombian Admitting Unavailable Ashelfah, Ghasem Attending Unavailable [facility] Unavailable Alice, Jayaprakash Consulting Unavailable Erik, Rocael Consulting Unavailable Cebul, Anoop Consulting Unavailable Ashelfah, Ghasem Consulting Unavailable Gbaruk, Kombian Admitting Unavailable Viviana Childers PROFESSIONAL ARCHITECT-C Attending Unavailable [facility] Unavailable Alice, Jayaprakash Consulting Unavailable Erik, Rocael Consulting Unavailable Cebul, Anoop Consulting Unavailable Ashelfah, Ghasem Consulting Unavailable Gbaruk, Kombian Admitting Unavailable Erik Rocael Attending Unavailable [facility] Unavailable Alice, Jayaprakash Consulting Unavailable Erik, Rocael Consulting Unavailable Cebul, Anoop Consulting Unavailable Ashelfah, Ghasem Consulting Unavailable Gbaruk, Kombian Admitting Unavailable Cebul, Anoop Attending Unavailable [facility] Unavailable Alice, Jayaprakash Consulting Unavailable Erik, Rocael Consulting Unavailable Cebul, Anoop Consulting Unavailable Ashelfah, Ghasem Consulting Unavailable BeauarIrene ramon Admitting Unavailable Ashelfah, Ghasem Attending Unavailable Duffy, Mat Primary Care Unavailable Alice, Jayaprakash Consulting Unavailable Rocael Valencia Consulting Unavailable KeiylbulAnoop Consulting Unavailable Ashelfah, Ghasem Consulting Unavailable Alice, Jayaprakash Attending Unavailable Alice, Jayaprakash Referring Unavailable Jolliff, Zeenat Primary Care Unavailable Norbert Bond Consulting Unavailable Alice, Jayaprakash Attending Unavailable Alice, Jayaprakash Referring Unavailable Jolliff, Zeenat Primary Care Unavailable Norbert Bond Attending Unavailable Mat Duffy Referring Unavailable Norbert Bond Attending Unavailable Jolliff, Zeenat Primary Care Unavailable Norbert Bond Attending Unavailable Norbert Bond Referring Unavailable Jolliff, Zeenat Primary Care Unavailable Norbert Bond Attending Unavailable Norbert Bond Referring Unavailable Jolliff, Zeenat Primary Care Unavailable Norbert Bond Attending Unavailable Mat Duffy Referring Unavailable Josi Hickman Attending Unavailable Josi Hickman Referring Unavailable Duffy, Mat Primary Care Unavailable Rocael Valencia Consulting Unavailable Anoop Angeles Attending Unavailable Karthik Anoop Referring Unavailable Duffy, Mat Primary Care Unavailable Duffy, Mat Primary Care Unavailable Koram, Jen Penny Admitting Unavailable Alice, Jayaprakash Consulting Unavailable Mata Engle Attending Unavailable Aydin Carroll D.O. Consulting Unavailable Koram, Jen Penny Admitting Unavailable Mata Engle Attending Unavailable Clive, Mat Primary Care Unavailable Alice, Jayaprakash Consulting Unavailable Aydin Carroll D.O. Consulting Unavailable Jopperi, Mata Consulting Unavailable Koram, Jen Penny Admitting Unavailable Mata Engle Attending Unavailable Clive, Mat Primary Care Unavailable Alice, Jayaprakash Consulting Unavailable Melvina Grimes.O. Consulting Unavailable Kadie Mata Consulting Unavailable Reinier Lang Attending Unavailable Ashelfah, Ghasem Referring Unavailable Anoop Angeles Attending Unavailable Mat Duffy Referring Unavailable Duffy, Mat Primary Care Unavailable Anoop Angeles Attending Unavailable Ashelfah, Ghasem Attending Unavailable Anoop Angeles Attending Unavailable Anoop Angeles Referring Unavailable Duffy, Mat Primary Care Unavailable Rocael Valencia Attending Unavailable Connie, Jen Penny Referring Unavailable DanelleDarien linares Attending Unavailable Duffy, Mat Referring Unavailable Anoop Angeles Attending Unavailable Anoop Angeles Referring Unavailable Duffy, Mat Primary Care Unavailable Anoop Angeles Consulting Unavailable Darien Mcclendon Attending Unavailable Duffy, Mat Referring Unavailable Duffy, Mat Primary Care Unavailable Evangelina Hendricks PA-C Attending Unavailable Duffy, Mat Referring Unavailable Duffy, Mat Primary Care Unavailable Reinier Lang Attending Unavailable Connie, Jen Penny Referring Unavailable Josi Hickman Attending Unavailable Duffy, Mat Referring Unavailable Hickman, Josi Attending Unavailable Hickman, Josi Referring Unavailable Duffy, Mat Primary Care Unavailable Evangelina Hendricks PA-C Attending Unavailable Duffy, Mat Referring Unavailable Alice, Jayaprakash Attending Unavailable Alice, Jayaprakash Referring Unavailable Duffy, Mat Primary Care Unavailable Darien Mcclendon Attending Unavailable Alice, Jayaprakash Attending Unavailable Alice, Jayaprakash Referring Unavailable Duffy, Mat Primary Care Unavailable Josi Hickman Attending Unavailable Duffy, Mat Referring Unavailable Josi Hickman Attending Unavailable Hickman, Josi Referring Unavailable Duffy, Mat Primary Care Unavailable Aydin Carroll D.O. Attending Unavailable Josi Hickman Referring Unavailable Alice, Jayaprakash Attending Unavailable Alice, Jayaprakash Referring Unavailable Duffy, Mat Primary Care Unavailable Anoop Angeles Attending Unavailable Duffy, Mat Referring Unavailable Alice, Jayaprakash Attending Unavailable Alice, Jayaprakash Referring Unavailable Duffy, Mat Primary Care Unavailable Alice, Jayaprakash Attending Unavailable Duffy, Mat Primary Care Unavailable Alice, Jayaprakash Attending Unavailable Duffy, Mat Primary Care Unavailable Alice, Jayaprakash Referring Unavailable Zeenat Harp Unavailable Aydin Carroll D.O. Attending Unavailable Josi Hickman Referring Unavailable Alice, Jayaprakash Attending Unavailable Anoop Angeles Attending Unavailable Duffy, Mat Referring Unavailable Duffy, Mat Primary Care Unavailable Alice, Jayaprakash Attending Unavailable Alice, Jayaprakash Referring Unavailable Clive, Mat Primary Care Unavailable Adriana Jovel PROFESSIONAL ARCHITECT-C Attending Unavailable Clive, Mat Primary Care Unavailable Adriana Jovel PROFESSIONAL ARCHITECT-C Attending Unavailable Clive, Mat Primary Care Unavailable Alice, Jayaprakash Attending Unavailable Alice, Jayaprakash Referring Unavailable Clive, Mat Primary Care Unavailable Alice, Jayaprakash Attending Unavailable Alice, Jayaprakash Referring Unavailable Zeenat Harp Primary Care Unavailable Rocael Valencia Attending Unavailable Clive, Mat Referring Unavailable Norbert Bond Attending Unavailable Clive, Mat Referring Unavailable Anoop Angeles Attending Unavailable Katiuska, Zeenat Referring Unavailable BIANCA LOBO Admitting Unavailable VANI HODGE Attending Unavailable SARTHAK MENDOZA Consulting Unavailable Mat Duffy MD Primary Care Unavailable BIANCA LOBO Admitting Unavailable ALICE, JAYAPRAKASH R Consulting Unavailable VANI HODGE Attending Unavailable SARTHAK MENDOZA Consulting Unavailable PROBLEMS PROBLEMS DATE TYPE CONDITION / CODE ATTENDING STATUS SOURCE Unknown I50.33 - Acute on Bond, Active [place] 9 chronic diastolic [facility] (congestive) heart Hospital failure / Repository I50.33(ICD-10) Unknown N18.5 - Chronic kidney Bond, Active [place] 9 disease, stage 5 / [facility] N18.5(ICD-10) Hospital Repository Unknown I48.0 - Paroxysmal Bond, Active [place] 9 atrial fibrillation / [facility] I48.0(ICD-10) Hospital Repository Unknown N18.3 - Chronic kidney Alice, Active [place] 8 disease, stage 3 [facility] (moderate) / Hospital N18.3(ICD-10) Repository Unknown N18.4 - Chronic kidney Alice, Active [place] 8 disease, stage 4 [facility] (severe) / Hospital N18.4(ICD-10) Repository Unknown E55.9 - Vitamin D Alice, Active [place] 8 deficiency, Jayaprakash Community unspecified / Hospital E55.9(ICD-10) Repository Unknown T82.898A - Other Anoop Angeles Active [place] 8 specified complication Community of vascular prosthetic Hospital devices, implants and Repository grafts, initial encounter / T82.898A(ICD-10) Unknown J96.21 - Acute and Aydin Glen Active [facility] 8 chronic respiratory D.O. Community failure with hypoxia / Hospital J96.21(ICD-10) Repository Unknown J96.22 - Acute and Ayidn Glen Active [facility] 8 chronic respiratory D.O. Community failure with Hospital hypercapnia / Repository J96.22(ICD-10) Unknown J44.9 - Chronic Aydin Glen Active [place] 8 obstructive pulmonary D.O. Community disease, unspecified / Hospital J44.9(ICD-10) Repository Unknown G89.18 - Other acute Anoop Angeles Active [facility] 8 postprocedural pain / Community G89.18(ICD-10) Hospital Repository Unknown R94.31 - Abnormal Danelle, [place] Active [facility] 8 electrocardiogram Community [ECG] [EKG] / Hospital R94.31(ICD-10) Repository Unknown R06.02 - Shortness of RosaliaisjameyReinier Active [facility] 8 breath / Community R06.02(ICD-10) Hospital Repository Unknown R00.1 - Bradycardia, Reinier Lang Active [facility] 8 unspecified / Community R00.1(ICD-10) Hospital Repository Active Acute kidney failure, [facility] [place] [facility] unspecified / [facility] Other N17.9(ICD-10) [place] Repository Active Heart failure, RA[facility] Active [place] 8 unspecified / [facility] Other I50.9(ICD-10) [place] Repository Active Obesity, unspecified / [facility] Active [place] 8 E66.9(ICD-10) [facility] Other [place] Repository Active Body mass index (bmi) [facility], [facility] Active [place] 8 36.0-36.9, adult / [facility] Other Z68.36(ICD-10) [place] Repository Active Obstructive sleep RAZACK, [place] [address] apnea (adult) [facility] Clinic Other (pediatric) / [place] G47.33(ICD-10) Repository Active Pleural effusion, not RAZACK, [facility] Active [place] 8 elsewhere classified / [facility] Other J90(ICD-10) [place] Repository Active Acute and chronic RAZACK, [place] [address] respiratory failure [facility] Clinic Other with hypoxia / [place] J96.21(ICD-10) Repository [facility] Active [place] [address] diastolic (congestive) [facility] Clinic Other heart failure / [place] I50.33(ICD-10) Repository Active Secondary pulmonary RAZACK, [place] [address] arterial hypertension [facility] Clinic Other / I27.21(ICD-10) [place] Repository Active [facility]itis, [facility] [place] [address] / I77.6(ICD-10) [facility] Clinic Other [place] Repository Active Acute systolic RAZACK, [place] [address] (congestive) heart [facility] Clinic Other failure / [place] I50.21(ICD-10) Repository Admitting Unknown / UNK(Unknown) LAURA, [facility] Active [place] [address] diagnosis Health System Repository Active Unknown / UNK(Unknown) BEREKET HAMMER [place] [address] (PROFESSIONAL ARCHITECT) Clinic Main [place] Repository PROCEDURES PROCEDURES No Procedure Records FoundRESULTS RESULTS CARDIOLOGY VISIT Observed: 10/28/2018 Status: F Source: [facility] REPORT 4:01 PM [facility] REPOSITORY [facility] [address] [place] [address] OFFICE VISIT Date of Service: 10/28/18 MR#: [id number] Acct: [id number] Name: MICHAEL GARCIA Rep #: [id number] : 1945 Provider: Norbert Bond Age/Sex: 72/F Location: [facility] Status: Signed HPI HPI Details: MICHAEL GARCIA, is a 72 F who presents to the office today for a follow up for concerns over increase in weight and SOB. She did have 3 days of IV lasix and was to see the child support agent. She has a history of diastolic heart failure, paroxysmal atrial fibrillation, hypertension, scleroderma, diabetes. She previously was on dialysis this is since been discontinued in February of 2018. She is continue to follow closely with nephrology. 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 Her anticoagulants were discontinued at that time. It was thought that her amiodarone was discontinued at her last office visit however she still remains on this. Pt sts that nephrology deferred to our management of IV lasix. She sts that she is still fatigued. She feels that is is slightly easier to move. She is down 4 lbs. She feels her base weight is 218. Renal function slightly more stressed after IV lasix but similar. She is using her metolazone once a week and her lasix 80 mg twice a day. She feels her urine output is adequate. She feels that her SOB might be a little better. She does not have any chest pain/heaviness. She does occasionally have palpitations. She does not have any near syncope/syncope. She no longer feels bloated. Intake Vital Signs10/28/18 Height 5 ft 3 in 10/28/18 Weight: 224 lb 10/28/18 Body Mass Index (BMI) 39.6 Intake Visit Reasons: PER MMM Allergies No Known Allergies Allergy (Verified 10/21/18 16:21) Medications Aspirin 325 mg PO DAILY@0800 03/01/18 [History Confirmed 10/21/18] Atorvastatin Calcium 40 mg PO QHS 03/01/18 [History Confirmed 10/21/18] Clonidine HCl 0.1 mg PO TID 03/01/18 [History Confirmed 10/21/18] Ergocalciferol [Vitamin D] 1 cap PO QMONTH 03/01/18 [History Confirmed 10/21/18] Insulin Aspart [Novolog Flexpen] See Protocol 03/01/18 [History Confirmed 10/21/18] Insulin Glargine [Lantus SoloStar Pen] 39 units SQ BID 03/01/18 [History Confirmed 10/21/18] pantoprazole 40 mg tablet,delayed release 40 mg PO QDAY 04/06/18 [History Confirmed 10/21/18] amiodarone 200 mg tablet 200 mg PO QDAY 04/28/18 [History Confirmed 10/21/18] calcitriol 0.25 mcg capsule 0.25 mcg PO ONCE 09/09/18 [History Confirmed 10/21/18] metolazone 5 mg tablet 5 mg PO ONCE 09/09/18 [History Confirmed 10/21/18] metoprolol succinate ER 25 mg capsule sprinkle, ext. release 24 hr 25 mg PO DAILY 09/09/18 [History Confirmed 10/21/18] furosemide 40 mg tablet 80 mg PO BID tab 10/21/18 [History Confirmed 10/21/18] potassium chloride ER 10 mEq tablet,extended release 10 meq PO DAILY 10/21/18 [History Confirmed 10/21/18] PFS Medical History Chronic renal insufficiency, stage V (Chronic) Rheumatic mitral insufficiency (Chronic) HTN (hypertension) (Chronic) 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) Morbid obesity (Chronic) Obstructive sleep apnea (Chronic) Type 2 diabetes mellitus (Chronic) History of cerebral hemorrhage (Chronic) Anemia (Chronic) Aortic stenosis, mild (Chronic) Mitral stenosis (Chronic) Stroke (Chronic) Hyperlipidemia (Chronic) Vitamin D deficiency (Chronic) Neuropathic pain (Chronic) Presence of surgically created arteriovenous shunt for hemodialysis (Acute 03/2018) Aortic stenosis (Chronic) Bradycardia (Chronic) Cerebral hemorrhage (Chronic) Depression (Chronic) Dyspnea (Chronic) History of Coumadin therapy (Chronic) Left atrial enlargement (Chronic) Legally blind (Chronic) Lung nodule (Chronic) Palpitations (Chronic) Rheumatic mitral stenosis (Chronic) Wheezing (Chronic) Surgical History S/P craniotomy (Chronic) S/P Achilles tendon repair (Acute) S/P carpal tunnel release (Acute) S/P dialysis catheter insertion (Acute) S/P laparoscopic cholecystectomy (Acute) S/P rotator cuff repair (Acute) S/P tonsillectomy (Acute) Family History Mother Cancer Diabetes Kidney disease Father Heart disease Diabetes Kidney disease Social History Smoking Status: Never smoker second hand exposure: No alcohol intake: never substance use type: does not use caffeine: Yes Type: coffee what type of physical activity do you participate in: none ROS Const Const: Positive for fatigue; negative for weakness, night sweats, excessive sweating, frequent falls, headache(s) or daytime sleepiness Eyes Eyes: Negative for loss of peripheral vision, transient loss of vision, blind spots, double vision or blurry vision ENT ENT: Positive for balance problems; negative for headache(s) Cardio Chest Pain: No Palpitations: Yes Edema: Bilateral Muscle aches with walking: None Resp Respiratory: Positive for SOB with activity; negative for SOB at rest, SOB orthopnea\SOB lying down, Cough or paroxysmal nocturnal dyspnea GI GI: Negative nausea, vomiting, heartburn, black,tarry stools or bright, red blood in stools : Negative for hematuria Musc Musc: Positive for balance problems, muscle aches/ myalgia, muscle weakness and joint pain Skin Skin: Negative non-healing lesions, unusual bruising or rash Neuro Neuro: Negative for weakness, frequent falls, headache(s), double vision or blurry vision Julio Hematologic/Lymphatic: Negative for easy bruising or easy bleeding Endo Endo: Positive for fatigue; negative for excessive sweating Psych Psych: Negative for anxiety or depression Allergy Allergy/Immunology: Negative for rash Cardiology Exam Const Appearance: cooperative, no acute distress, well developed, frail appearing and other (wearing O2) Orientation: alert, awake and oriented x3 On chronic O2 Head Head: normocephalic and atraumatic Mouth: moist mucous membranes Eyes General: appearance normal, both eyes and all related structures Conjunctivae: conjunctivae normal Pupils: PERRL EOM: EOM intact bilaterally Neck Neck: normal visual inspection and no lymphadenopathy Carotids: Negative bruit Neck Mass: Negative Neck mass Chest Chest inspection: normal inspection of the chest, symmetric chest movement and other (Dialysis catheter to right upper chest) Auscultation: Bilateral: Diminished Lung Sounds Cardio Palpation: normal PMI Rate: regular rate Rhythm: regular rhythm Heart sounds: S1 normal and S2 normal; negative rub, gallop or murmur GI GI: normal to inspection, soft, no hepatosplenomegaly and bowel sounds present; negative tender Neuro General: alert, awake, oriented x3, CN's II-XI intact bilaterally and moves all extremities Extremities Pulses: Diminished: Right Posterior Tibial Pulse, Left Posterior Tibial Pulse, Right Radial Pulse Upper Extremity: AV fistula to left forearm dependent edema more so in thighs than lower extremities, presacral edema maybe slightly better than last week. Psych Psychological: normal affect Assessment AND Plan 1. Acute on chronic diastolic congestive heart failure I50.33 Plan - DEENA Simmons Unfortunately patient has only lost 5 pounds. She does state that she is feeling slightly better. We will increase her metolazone to twice a week. She will repeat MP next week. She will call with an update on what her weights have been. After BMP will further adjust diuretics if need be. Patient Instructions - DEENA Simmons Increase yhour metolazone to twice a week Get your blood work on Friday Monitor your weight daily Orders Orders: 2. Essential hypertension I10 Plan - DEENA Simmons Blood pressure is well controlled on current medications, we do not recommend any changes at this time. 3. Paroxysmal A-fib I48.0 Plan - DEENA Simmons Patient has not had any symptomatic recurrence. She is currently not anticoagulated due to her intracranial hemorrhage. She will remain on her amiodarone. We will continue to monitor routine pulmonary function test, thyroid and hepatic panels. 4. Pulmonary hypertension I27.20 Plan - DEENA Simmons Feel that this could be contributing to patient's shortness of breath. We will continue with her diuretics. We are continue to adjust and monitor closely. 5. Chronic renal insufficiency, stage V N18.5 Plan - DEENA Simmons Patient does continue to follow with nephrology. Orders Orders: Plan Detail Additional Comments - DEENA Simmons Discussed with Dr. Mcclendon, he agrees with plan of care. Thank you for allowing us to participate in patient's plan of care, if you have any questions please do not hesitate to call. This note was generated using a voice recognition system and there may be incorrect words, spelling or punctuation errors that were not noted when reviewing the office note prior to saving. Follow Up 2 Weeks (MMM) Coding Level of Care Code Off vis,est,level 3 Diagnoses Acute on chronic diastolic congestive heart failure I50.33 Heart failure type: diastolic Essential hypertension I10 Hypertension type: essential hypertension Paroxysmal A-fib I48.0 Pulmonary hypertension I27.20 Chronic renal insufficiency, stage V N18.5 Coding Level of Care Code Off vis,est,level 3 Diagnoses Acute on chronic diastolic congestive heart failure I50.33 Heart failure type: diastolic Essential hypertension I10 Hypertension type: essential hypertension Paroxysmal A-fib I48.0 Pulmonary hypertension I27.20 Chronic renal insufficiency, stage V N18.5 Supplemental Info Supplemental Information Labs LDL Cholesterol 91 mg/dL (0-130) 06/24/18 HDL Cholesterol 35 mg/dL (40-) L 06/24/18 Triglycerides 136 mg/dL (-199) 06/24/18 VLDL Cholesterol 27 mg/dL (5-40) 06/24/18 Diagnostics Electrocardiogram 10/21/18 10/28/18918 <Electronically signed by Norbert Bond PA> Date Norbert SHAFFER 10/28/18 1601<Electronically signed by Darien Mcclendon MD> Cosigner Signature: Date (if applicable) Darien Mcclendon MD CC: Zeenat Harp MD BASIC METABOLIC Collected: 10/23/2018 Status: F Source: [facility]STOP[facility] PROFILE (BMP) 12:06 PM [facility] REPOSITORY TYPE CODE TESTS RESULT OUT OF RANGE REFERENCE UNITS LAB L501.0100 74-106 mg/dL High GLU 229 Result Comment: Glucose result greater than or equal to 200 mg/dL suggests DIABETES MELLITUS per A.D.A. criteria. Please note revised GLUCOSE reference range effective 2017. LAB L501.1000 7-18 mg/dL High BUN 52 LAB L501.1100 0.55-1.02 mg/dL High CREAT,SERUM 2.37 Result Comment: The validity of the calculated GFR AND GFRAA in patients over 70 years has not been determined. Clinical correlation is essential. LAB L501.1110 >60 mL/min Low EST GFR 22 Result Comment: Non- GFR Calc LAB L501.1115 >60 mL/min Low EST GFR - AA 26 Result Comment: GFR Calc LAB L501.1255 ml/min Normal Estimated CRCL 18.27 LAB L501.1300 10-20 RATIO High BUN/CRE 21.9 LAB L501.2200 8.5-10 mg/dL Normal .1 CA 8.6 LAB L501.5300 136-14 mmol/L Normal 5 NA 142 LAB L501.5600 3.5-5. mmol/L Normal 1 K 4.6 LAB L501.5900 98-107 mmol/L Normal CL 103 LAB L501.6100 21.0-3 mmol/L High 2.0 CO2 33.0 LAB L501.6200 5-15 Normal GAP 6 Performed By: #### L500.2500 #### [facility] [address] [place], [address] CARDIOLOGY VISIT Observed: 10/22/2018 Status: F Source: [facility] REPORT 5:38 PM [facility] REPOSITORY [facility] [address] [place] [address] OFFICE VISIT Date of Service: 10/21/18 MR#: [id number] Acct: [id number] Name: MICHAEL GARCIA Rep #: [id number] : 1945 Provider: Norbert Bond Age/Sex: 72/F Location: [facility] Status: Signed HPI HPI Chief Complaint: recheck fistula Details: MICHAEL GARCIA, is a 72 F who presents to the office today for a cardiovascular follow up. She has a history of diastolic heart failure, paroxysmal atrial fibrillation, hypertension, scleroderma, diabetes. She previously was on dialysis this is since been discontinued in February of 2018. She is continue to follow closely with nephrology. 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 Her anticoagulants were discontinued at that time. It was thought that her amiodarone was discontinued at her last office visit however she still remains on this. Pt continue to have weight gain. (28 lbs since May) She was in to see nephrology, they increased her lasix. She does weigh herself. It goes up and down. She does have SOB she does not feel that this is worse than what it was. She does occasionally have chest discomfort. This is not new. She does not have any lightheadedness/dizziness/syncope. She does occasionally have palpitations. She not have any swelling in her legs. She does feel bloated. She sts that she monitors her food and salt intake. Intake Vital Signs10/21/18 Height 5 ft 3 in 10/21/18 Weight: 228 lb 10/21/18 Body Mass Index (BMI) 40.4 10/21/18 Blood Pressure 122/72 H 10/21/18 Blood Pressure Location Lt brachial Intake Visit Reasons: 6 wk FU Waste Collector Required: No Accompanied by: Is patient in pain?: No Allergies No Known Allergies Allergy (Verified 10/21/18 16:21) Medications Aspirin 325 mg PO DAILY@0800 03/01/18 [History Confirmed 10/21/18] Atorvastatin Calcium 40 mg PO QHS 03/01/18 [History Confirmed 10/21/18] Clonidine HCl 0.1 mg PO TID 03/01/18 [History Confirmed 10/21/18] Ergocalciferol [Vitamin D] 1 cap PO QMONTH 03/01/18 [History Confirmed 10/21/18] Insulin Aspart [Novolog Flexpen] See Protocol 03/01/18 [History Confirmed 10/21/18] Insulin Glargine [Lantus SoloStar Pen] 39 units SQ BID 03/01/18 [History Confirmed 10/21/18] pantoprazole 40 mg tablet,delayed release 40 mg PO QDAY 04/06/18 [History Confirmed 10/21/18] amiodarone 200 mg tablet 200 mg PO QDAY 04/28/18 [History Confirmed 10/21/18] calcitriol 0.25 mcg capsule 0.25 mcg PO ONCE 09/09/18 [History Confirmed 10/21/18] metolazone 5 mg tablet 5 mg PO ONCE 09/09/18 [History Confirmed 10/21/18] metoprolol succinate ER 25 mg capsule sprinkle, ext. release 24 hr 25 mg PO DAILY 09/09/18 [History Confirmed 10/21/18] furosemide 40 mg tablet 80 mg PO BID tab 10/21/18 [History Confirmed 10/21/18] potassium chloride ER 10 mEq tablet,extended release 10 meq PO DAILY 10/21/18 [History Confirmed 10/21/18] [facility] Medical History Chronic renal insufficiency, stage V (Chronic) Rheumatic mitral insufficiency (Chronic) HTN (hypertension) (Chronic) 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) Morbid obesity (Chronic) Obstructive sleep apnea (Chronic) Type 2 diabetes mellitus (Chronic) History of cerebral hemorrhage (Chronic) Anemia (Chronic) Aortic stenosis, mild (Chronic) Mitral stenosis (Chronic) Stroke (Chronic) Hyperlipidemia (Chronic) Vitamin D deficiency (Chronic) Neuropathic pain (Chronic) Presence of surgically created arteriovenous shunt for hemodialysis (Acute 03/2018) Aortic stenosis (Chronic) Bradycardia (Chronic) Cerebral hemorrhage (Chronic) Depression (Chronic) Dyspnea (Chronic) History of Coumadin therapy (Chronic) Left atrial enlargement (Chronic) Legally blind (Chronic) Lung nodule (Chronic) Palpitations (Chronic) Rheumatic mitral stenosis (Chronic) Wheezing (Chronic) Surgical History S/P craniotomy (Chronic) S/P Achilles tendon repair (Acute) S/P carpal tunnel release (Acute) S/P dialysis catheter insertion (Acute) S/P laparoscopic cholecystectomy (Acute) S/P rotator cuff repair (Acute) S/P tonsillectomy (Acute) Family History Mother Cancer Diabetes Kidney disease Father Heart disease Diabetes Kidney disease Social History Smoking Status: Never smoker second hand exposure: No alcohol intake: never substance use type: does not use caffeine: Yes Type: coffee what type of physical activity do you participate in: none ROS Const Const: Positive for fatigue; negative for weakness, night sweats, excessive sweating, frequent falls, headache(s) or daytime sleepiness Eyes Eyes: Negative for loss of peripheral vision, transient loss of vision, blind spots, double vision or blurry vision ENT ENT: Negative for headache(s) or balance problems Cardio Chest Pain: No Palpitations: No Edema: None Muscle aches with walking: None Resp Respiratory: Positive for SOB with activity; negative for SOB at rest, SOB orthopnea\SOB lying down, Cough or paroxysmal nocturnal dyspnea GI GI: Negative nausea, vomiting, heartburn, black,tarry stools or bright, red blood in stools : Negative for hematuria Musc Musc: Positive for muscle aches/ myalgia and muscle weakness; negative for balance problems or joint pain Skin Skin: Negative non-healing lesions, unusual bruising or rash Neuro Neuro: Negative for weakness, frequent falls, headache(s), double vision or blurry vision Julio Hematologic/Lymphatic: Negative for easy bruising or easy bleeding Endo Endo: Positive for fatigue; negative for excessive sweating Psych Psych: Negative for anxiety or depression Allergy Allergy/Immunology: Negative for rash Cardiology Exam Const Appearance: cooperative, no acute distress, well developed, frail appearing and other (wearing O2) Orientation: alert, awake and oriented x3 On chronic O2 Head Head: normocephalic and atraumatic Mouth: moist mucous membranes Eyes General: appearance normal, both eyes and all related structures Conjunctivae: conjunctivae normal Pupils: PERRL EOM: EOM intact bilaterally Neck Neck: normal visual inspection and no lymphadenopathy Carotids: Negative bruit Neck Mass: Negative Neck mass Chest Chest inspection: normal inspection of the chest, symmetric chest movement and other (Dialysis catheter to right upper chest) Auscultation: Bilateral: Diminished Lung Sounds Cardio Palpation: normal PMI Rate: regular rate Rhythm: regular rhythm Heart sounds: S1 normal and S2 normal; negative rub, gallop or murmur GI GI: normal to inspection, soft, no hepatosplenomegaly and bowel sounds present; negative tender Neuro General: alert, awake, oriented x3, CN's II-XI intact bilaterally and moves all extremities Extremities Pulses: Diminished: Right Posterior Tibial Pulse, Left Posterior Tibial Pulse, Right Radial Pulse Upper Extremity: AV fistula to left forearm dependent edema more so in thighs than lower extremities, presacral edema Psych Psychological: normal affect Assessment AND Plan 1. Acute on chronic diastolic congestive heart failure I50.33 DEENA Villa Patient has been working with nephrology on diuretics unfortunately she is continued to gain weight. She does have dependent edema. Would like to try 3 days of IV Lasix to see if this helps. This has been scheduled. She will follow-up next week with a BMP after. 2. Essential hypertension I10 DEENA Villa Blood pressure is well controlled on current medications, we do not recommend any changes at this time. 3. Pulmonary hypertension I27.20 DEENA Villa Patient is short of breath. Feel that this could be contributing to her shortness of breath. She was encouraged to use her CPAP. She will continue with her diuretics, will also try 3 days of IV Lasix to see if this improves. She will continue with her oxygen. 4. Paroxysmal A-fib I48.0 DEENA Villa Patient has not had any symptomatic recurrence. She is currently not anticoagulated due to her intracranial hemorrhage. She will remain on her amiodarone. We will continue to monitor routine pulmonary function test, thyroid and hepatic panels. Orders Orders: 5. Pure hypercholesterolemia E78.00 DEENA Villa Patient will continue with her current moderate intensity statin. Lipid profile from June 2018 demonstrates total cholesterol of 153, HDL 35, LDL 91. 6. Chronic renal insufficiency, stage V N18.5 Plan - DEENA Simmons Patient does continue to follow with nephrology. Plan Detail Additional Comments - DEENA Simmons Discussed with Dr. Mcclendon, he agrees with plan of care. Thank you for allowing us to participate in patient's plan of care, if you have any questions please do not hesitate to call. This note was generated using a voice recognition system and there may be incorrect words, spelling or punctuation errors that were not noted when reviewing the office note prior to saving. Follow Up 1 Week Coding Level of Care Code Off vis,est,level 4 Diagnoses Acute on chronic diastolic congestive heart failure I50.33 Heart failure type: diastolic Heart failure chronicity: acute on chronic Essential hypertension I10 Hypertension type: essential hypertension Pulmonary hypertension I27.20 Paroxysmal A-fib I48.0 Pure hypercholesterolemia E78.00 Hyperlipidemia type: pure hypercholesterolemia Chronic renal insufficiency, stage V N18.5 Coding Level of Care Code Off vis,est,level 4 Diagnoses Acute on chronic diastolic congestive heart failure I50.33 Heart failure type: diastolic Heart failure chronicity: acute on chronic Essential hypertension I10 Hypertension type: essential hypertension Pulmonary hypertension I27.20 Paroxysmal A-fib I48.0 Pure hypercholesterolemia E78.00 Hyperlipidemia type: pure hypercholesterolemia Chronic renal insufficiency, stage V N18.5 Supplemental Info Supplemental Information Echocardiogram in 11/2017 demonstrated The study was technically difficult. Contrast injection was performed. Left ventricular systolic function is normal. The estimated ejection fraction is 65 %. The left atrium is moderately enlarged. There is moderate to severe mitral annular calcification. Extension of the mitral annular calcification onto the mitral valve leaflets. Mild focal mitral valve calcification of the anterior leaflet. Mild (1+) mitral valve insufficiency. Mild tricuspid valve insufficiency. Mild aortic stenosis. Trivial pulmonic valve insufficiency. Right ventricular systolic pressure estimated to be 51 mmHg. Transmitral diastolic flow velocities suggest diastolic dysfunction (pseudonormal pattern). Labs LDL Cholesterol 91 mg/dL (0-130) 06/24/18 HDL Cholesterol 35 mg/dL (40-) L 06/24/18 Triglycerides 136 mg/dL (-199) 06/24/18 VLDL Cholesterol 27 mg/dL (5-40) 06/24/18 Diagnostics Electrocardiogram 10/21/18 10/22/18 1027 <Electronically signed by Norbert SHAFFER> Date Norbert SHAFFER 10/22/18 1738<Electronically signed by Darien Mcclendon MD> Cosigner Signature: Date (if applicable) Darien Mcclendon MD CC: Mat Duffy MD 12 LEAD EKG PERFORMED Observed: 10/21/2018 Status: F Source: [facility]STOPHER BY [facility] 2:37 PM [facility] REPOSITORY [address] [address] 12 Lead EKG performed by [facility] 10/21/18 1437 MR#: [id number] Acct: [id number] Name: MICHAEL GARCIA Rep #: [id number] : 1945 72 From: Norbert SHAFFER Attending Dr: Norbert Bond Status: DEP AMB Ordering Dr: Norbert Bond Date: 10/21/18 Location: [facility] Sex: F C Admitted: BMS/12 Lead EKG performed by [facility] ECG Report Interpretation Sinus Bradycardia -Left axis -anterior fascicular block. -Old anterior infarct. Low voltage with rightward P-axis and rotation -possible pulmonary disease. ABNORMAL Electronically signed on 10/27/2018 at 13:29 by Darien Mcclendon Software Version [id number] 10/27/18 1334 Date Norbert SHAFFER CC: Mat Duffy MD Date Dictated: 10/21/181436 Date Transcribed: 10/21/181436 Business Support Administrator: CHARLOTTE Signed KIDNEY AND BLADDER Observed: 10/01/2018 Status: F Source: CHRISTOPHER 12:08 PM [facility] REPOSITORY [facility] Imaging Services [address] [place] [address] Kidney and Bladder MR#: [id number] Acct: [id number] Name: MICHAEL GARCIA Rep #: [id number] : 1945 F 72 From: Luisa Mcnulty MD PCP: Zeenat Harp MD Status: REG CLI Study: Kidney and Bladder Date of Exam: 10/01/18 Exam# [id number] Ordering Dr: Trell Jenkins MD STUDY: RENAL ULTRASOUND - COMPLETE REASON FOR EXAM: Female, 72 years old. TECHNIQUE: Ultrasound evaluation of the kidneys was performed with real-time and static gaspar-scale imaging. COMPARISON: None. FINDINGS: RIGHT KIDNEY: Normal location of the right kidney, which is normal in size. The right kidney measures 1.6 x 3.2 x 4 cm. There is a normal cortex of the right kidney. The renal cortex measures 1.2 cm. There is no right renal mass or cyst. There are no right renal calculi. There is no right hydronephrosis. DISTAL RIGHT URETER: There is non-visualization of the distal right ureter. There is no demonstrated right ureterovesical junction calculus. There is a visualized right ureteral jet. LEFT KIDNEY: Normal location of the left kidney, which is normal in size. The left kidney measures 10.8 x 3.1 x 3.7 cm. There is a normal cortex of the left kidney. The renal cortex measures 0.9 cm. There is no left renal mass or cyst. There are no left renal calculi. There is no left hydronephrosis. DISTAL LEFT URETER: There is non-visualization of the distal left ureter. There is no demonstrated left ureterovesical junction calculus. There is a visualized left ureteral jet. AORTA: There is no elongation or tortuosity of the abdominal aorta. Aorta measures: Proximal cm. Middle cm. Distal cm. Aorta measure transversely: Proximal cm. Middle cm. Distal cm. There is no demonstrated aneurysm.. I.V.C.: The IVC is patent. BLADDER: Normal distended bladder with volume of urine is 6.7 no thickening of the wall seen no evidence of the biliary, masses or stone. US/Kidney and Bladder IMPRESSION: Normal ultrasound of the kidneys and urinary bladder. Electronically Signed: Luisa Mcnulty, at 12:26 EST Tel , Service support , CC: Zeenat Harp MD; Domingo Jenkins M.D. Business Support Administrator: Signed CBC-COMPLETE BLOOD CNT Collected: 09/18/2018 Status: F Source: [facility] NO DIFF 1:30 PM [facility] REPOSITORY Order Comment: GABBY WANTS THE BMP ALICE WANTS THE PROCRE PTH VITD CBC BMP ALB TYPE CODE TESTS RESULT OUT OF RANGE REFERENCE UNITS LAB L100.1000 4.4-11.0 K/mm3 Normal WBC 5.8 LAB L100.1200 4.2-5.4 M/mm3 Low RBC 3.04 LAB L100.1300 12.0-15.0 g/dl Low HGB 9.7 LAB L100.1400 37-47 % Low HCT 31.2 LAB L100.1500 81-99 fL High MCV 102.6 LAB L100.1600 27.0-32.0 pg Normal MCH 31.9 LAB L100.1700 32-36 g/gl Low MCHC 31.1 LAB L100.1810 11.6-14.6 % High RDW CV 15.3 LAB L100.1820 35.1-43.9 fl High RDW SD 57.0 LAB L100.1900 150-450 K/mm3 Low PLT 134 LAB L100.2000 6.2-12.0 fl Normal MPV 9.4 Performed By: #### L100.0500 #### [facility] [place], [address] PROTEIN+CREATININE Collected: Status: F Source: CRHISTOPHER RATIO,URINE 09/18/2018 1:30 PM [facility] REPOSITORY Order Comment: GABBY WANTS THE BMP ALICE WANTS THE PROCRE PTH VITD CBC BMP ALB TYPE CODE TESTS RESULT OUT OF RANGE REFERENCE UNITS LAB L501.1200 NO RANGE EST. mg/dL Normal UR CREAT 58.00 LAB L501.1930 <11.9 mg/dL High 88.0 PROTEIN,UR.R AN. LAB L501.1940 0-200 mg/g CRE High PROT:CRE 1517 RATIO Performed By: #### L501.0900 #### [facility] [address] [place], [place], [address] PTHIN Collected: 09/18/2018 Status: F Source: [facility]STOPHER 1:30 PM [facility] REPOSITORY Order Comment: GABBY WANTS THE BMP ALICE WANTS THE PROCRE PTH VITD CBC BMP ALB TYPE CODE TESTS RESULT OUT OF RANGE REFERENCE UNITS LAB L509.1000 18.4-80.1 pg/mL High PTHIN 102.8 Performed By: #### L509.1000 #### [facility] [address] [place], [place], [address] VITAMIN D,25 HYDROXY Collected: 09/18/2018 Status: F Source: [facility]HER 1:29 PM [facility] REPOSITORY Order Comment: GABBY WANTS THE BMP ALICE WANTS THE PROCRE PTH VITD CBC BMP ALB TYPE CODE TESTS RESULT OUT OF RANGE REFERENCE UNITS LAB L506.1000 29.95-100.01 ng/mL Normal Vitamin D 46.5 25-OH Result Comment: Vitamin D 25(OH) Status Range Deficiency <20 ng/mL (50nmol/L) Insuffciency 20 - 30 ng/mL (50 - 75 nmol/L) Sufficiency 30 - 100 ng/mL (75 - 250 nmol/L) Toxicity >100 ng/mL (>250 nmol/L) Performed By: #### L506.1000 #### [facility] [address] [place], [address] BASIC METABOLIC Collected: 09/18/2018 Status: F Source: CHRISTOPHER PROFILE (BMP) 1:27 PM [facility] REPOSITORY Order Comment: GABBY WANTS THE BMP ALICE WANTS THE PROCRE PTH VITD CBC BMP ALB TYPE CODE TESTS RESULT OUT OF RANGE REFERENCE UNITS LAB L501.0100 74-106 mg/dL High GLU 126 Result Comment: Fasting Glucose result greater than or equal to 126 mg/dL suggests DIABETES MELLITUS per A.D.A. criteria. Please note revised GLUCOSE reference range effective 2017. LAB L501.1000 7-18 mg/dL High BUN 51 LAB L501.1100 0.55-1.02 mg/dL High CREAT,SERUM 2.18 Result Comment: The validity of the calculated GFR AND GFRAA in patients over 70 years has not been determined. Clinical correlation is essential. LAB L501.1110 >60 mL/min Low EST GFR 24 Result Comment: Non- GFR Calc LAB L501.1115 >60 mL/min Low EST GFR - AA 29 Result Comment: GFR Calc LAB L501.1300 10-20 RATIO High BUN/CRE 23.4 LAB L501.2200 8.5-10.1 mg/dL CA Normal 8.9 LAB L501.5300 136-145 mmol/L NA Normal 141 LAB L501.5600 3.5-5.1 mmol/L K Normal 4.7 LAB L501.5900 98-107 mmol/L CL Normal 100 LAB L501.6100 21.0-32.0 mmol/L High CO2 36.0 LAB L501.6200 5-15 Normal GAP 5 Performed By: #### L500.2500, L501.1800 #### [facility] [address] [place], [place], [id number] ALBUMIN, SERUM Collected: 09/18/2018 Status: F Source: [place] 1:27 PM [facility] REPOSITORY Order Comment: GABBY WANTS THE BMP ALICE WANTS THE PROCRE PTH VITD CBC BMP ALB TYPE CODE TESTS RESULT OUT OF RANGE REFERENCE UNITS LAB L501.1800 3.2-5.0 g/dL Normal ALB 3.4 Performed By: #### L500.2500, L501.1800 #### [facility] [address] [place], [place], [id number] CARDIOLOGY VISIT Observed: 09/14/2018 Status: F Source: [place] REPORT 7:29 AM [facility] REPOSITORY [facility] [address] [place] [address] OFFICE VISIT Date of Service: 09/09/18 MR#: [id number] Acct: [id number] Name: MICHAEL GARCIA Rep #: [id number] : 1945 Provider: Norbert Bond Age/Sex: 72/F Location: [facility] Status: Signed HPI HPI Chief Complaint: post fistula placement Details: MICHAEL GARCIA, is a 72 F who presents to the office today for a cardiovascular follow up. She has a history of diastolic heart failure, paroxysmal atrial fibrillation, hypertension, scleroderma, diabetes. She previously was on dialysis this is since been discontinued since our last visit. She is continue to follow closely with nephrology. 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 Her anticoagulants were discontinued at that time. It was thought that her amiodarone was discontinued at her last office visit however she still remains on this. Patient does have a 20 pound weight gain since her last office visit. Question if this is related to her diastolic heart failure and no longer being on dialysis. She does have metolazone which she only uses if she has lower extremity edema. She does not weigh herself every day. She does note that she is more short of breath than when she previously was. She is also orthopneic and needing to use her oxygen more frequently. She just had an appointment with pulmonary. They were concerned about diastolic heart failure as well. She does use her CPAP. She does not have any chest pain or heaviness. She does have fatigue. She does not have any palpitations that she is aware of. She does not have any lightheadedness or dizziness. She does not feel that she has any lower extremity edema but she does feel bloated. Intake Vital Signs09/09/18 Height 5 ft 5 in 09/09/18 Weight: 220 lb 09/09/18 Body Mass Index (BMI) 36.6 09/09/18 Blood Pressure 122/78 H H 09/09/18 Blood Pressure Location Rt brachial Intake Visit Reasons: 4 M FU Waste Collector Required: No Is patient in pain?: No Allergies No Known Allergies Allergy (Verified 09/09/18 14:39) Medications Aspirin 325 mg PO DAILY@0800 03/01/18 [History Confirmed 09/09/18] Atorvastatin Calcium 40 mg PO QHS 03/01/18 [History Confirmed 09/09/18] Clonidine HCl 0.1 mg PO TID 03/01/18 [History Confirmed 09/09/18] Ergocalciferol [Vitamin D] 1 cap PO QMONTH 03/01/18 [History Confirmed 09/09/18] Insulin Aspart [Novolog Flexpen] See Protocol 03/01/18 [History Confirmed 09/09/18] Insulin Glargine [Lantus SoloStar Pen] 39 units SQ BID 03/01/18 [History Confirmed 09/09/18] pantoprazole 40 mg tablet,delayed release 40 mg PO QDAY 04/06/18 [History Confirmed 09/09/18] amiodarone 200 mg tablet 200 mg PO QDAY 04/28/18 [History Confirmed 09/09/18] calcitriol 0.25 mcg capsule 0.25 mcg PO ONCE 09/09/18 [History Confirmed 09/09/18] furosemide 40 mg tablet 80 mg PO DAILY tab 09/09/18 [History Confirmed 09/09/18] metolazone 5 mg tablet 5 mg PO ONCE 09/09/18 [History Confirmed 09/09/18] metoprolol succinate ER 25 mg capsule sprinkle, ext. release 24 hr 25 mg PO DAILY 09/09/18 [History Confirmed 09/09/18] PFSH Medical History Chronic renal insufficiency, stage V (Chronic) Rheumatic mitral insufficiency (Chronic) HTN (hypertension) (Chronic) 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) Morbid obesity (Chronic) Obstructive sleep apnea (Chronic) Type 2 diabetes mellitus (Chronic) History of cerebral hemorrhage (Chronic) Anemia (Chronic) Aortic stenosis, mild (Chronic) Mitral stenosis (Chronic) Stroke (Chronic) Hyperlipidemia (Chronic) Vitamin D deficiency (Chronic) Neuropathic pain (Chronic) Presence of surgically created arteriovenous shunt for hemodialysis (Acute 03/2018) Aortic stenosis (Chronic) Bradycardia (Chronic) Cerebral hemorrhage (Chronic) Depression (Chronic) Dyspnea (Chronic) History of Coumadin therapy (Chronic) Left atrial enlargement (Chronic) Legally blind (Chronic) Lung nodule (Chronic) Palpitations (Chronic) Rheumatic mitral stenosis (Chronic) Wheezing (Chronic) Surgical History S/P craniotomy (Chronic) S/P Achilles tendon repair (Acute) S/P carpal tunnel release (Acute) S/P dialysis catheter insertion (Acute) S/P laparoscopic cholecystectomy (Acute) S/P rotator cuff repair (Acute) S/P tonsillectomy (Acute) Family History Mother Cancer Diabetes Kidney disease Father Heart disease Diabetes Kidney disease Social History Smoking Status: Never smoker second hand exposure: No alcohol intake: never substance use type: does not use caffeine: Yes Type: coffee what type of physical activity do you participate in: none ROS Const Const: Positive for fatigue; negative for weakness, night sweats, excessive sweating, frequent falls, headache(s) or daytime sleepiness Eyes Eyes: Negative for loss of peripheral vision, transient loss of vision, blind spots, double vision or blurry vision ENT ENT: Negative for headache(s) or balance problems Cardio Chest Pain: No Palpitations: No Edema: None Muscle aches with walking: None Resp Respiratory: Positive for SOB with activity; negative for SOB at rest, SOB orthopnea\SOB lying down, Cough or paroxysmal nocturnal dyspnea GI GI: Negative nausea, vomiting, heartburn, black,tarry stools or bright, red blood in stools : Negative for hematuria Musc Musc: Positive for muscle aches/ myalgia and muscle weakness; negative for balance problems or joint pain Skin Skin: Negative non-healing lesions, unusual bruising or rash Neuro Neuro: Negative for weakness, frequent falls, headache(s), double vision or blurry vision Julio Hematologic/Lymphatic: Negative for easy bruising or easy bleeding Endo Endo: Positive for fatigue; negative for excessive sweating Psych Psych: Negative for anxiety or depression Allergy Allergy/Immunology: Negative for rash Cardiology Exam Const Appearance: cooperative, no acute distress, well developed and frail appearing Orientation: alert, awake and oriented x3 On chronic O2 Head Head: normocephalic and atraumatic Mouth: moist mucous membranes Eyes General: appearance normal, both eyes and all related structures Conjunctivae: conjunctivae normal Pupils: PERRL EOM: EOM intact bilaterally Neck Neck: normal visual inspection and no lymphadenopathy Carotids: Negative bruit Neck Mass: Negative Neck mass Chest Chest inspection: normal inspection of the chest, symmetric chest movement and other (Dialysis catheter to right upper chest) Auscultation: Bilateral: Diminished Lung Sounds Cardio Palpation: normal PMI Rate: regular rate Rhythm: regular rhythm Heart sounds: S1 normal and S2 normal; negative rub, gallop or murmur GI GI: normal to inspection, soft, no hepatosplenomegaly and bowel sounds present; negative tender Neuro General: alert, awake, oriented x3, CN's II-XI intact bilaterally and moves all extremities Extremities Pulses: Diminished: Right Posterior Tibial Pulse, Left Posterior Tibial Pulse, Right Radial Pulse Upper Extremity: AV fistula to left forearm Lower Extremity Edema: None: Bilateral Psych Psychological: normal affect Supplemental Info Echocardiogram in 11/2017 demonstrated The study was technically difficult. Contrast injection was performed. Left ventricular systolic function is normal. The estimated ejection fraction is 65 %. The left atrium is moderately enlarged. There is moderate to severe mitral annular calcification. Extension of the mitral annular calcification onto the mitral valve leaflets. Mild focal mitral valve calcification of the anterior leaflet. Mild (1+) mitral valve insufficiency. Mild tricuspid valve insufficiency. Mild aortic stenosis. Trivial pulmonic valve insufficiency. Right ventricular systolic pressure estimated to be 51 mmHg. Transmitral diastolic flow velocities suggest diastolic dysfunction (pseudonormal pattern). Assessment AND Plan 1. Acute on chronic diastolic congestive heart failure I50.33 Plan - DEENA Simmons Concerned with patient's weight gain. We will have her take metolazone in the morning. She was advised to monitor her weight daily. She will call us next week after she sees a child support agent with an update on nephrology's input in addition to her weight. With nephrology's input we will continue to monitor closely. Patient Instructions - DEENA Simmons Monitor your weight every day Take your metolazone tomorrow 30 minutes before your lasix Call next week with an update 2. Paroxysmal A-fib I48.0 Plan - DEENA Simmons Patient has not had any symptomatic recurrence. She is currently not anticoagulated due to her intracranial hemorrhage. She will remain on her amiodarone. We will continue to monitor routine pulmonary function test, thyroid and hepatic panels. Orders Orders: 3. Rheumatic mitral insufficiency I05.1 Plan - DEENA Simmons We will continue to monitor with echocardiograms. She does have moderate to severe mitral calcification. 4. Pulmonary hypertension I27.20 Plan - DEENA Simmons Patient is short of breath. Feel that this could be contributing to her shortness of breath. She was encouraged to use her CPAP. She will continue with her diuretics. 5. Essential hypertension I10 Plan - DEENA Simmons Blood pressure is well controlled on current medications, we do not recommend any changes at this time. 6. Chronic renal insufficiency, stage V N18.5 Plan - DEENA Simmons Patient does continue to follow with nephrology. Plan Detail Additional Comments - DEENA Simmons Discussed with Dr. Mcclendon, he agrees with plan of care. Thank you for allowing us to participate in patient's plan of care, if you have any questions please do not hesitate to call. This note was generated using a voice recognition system and there may be incorrect words, spelling or punctuation errors that were not noted when reviewing the office note prior to saving. Follow Up 6 Weeks (6-8 weeks MMM) Coding Level of Care Code Off vis,est,level 4 Diagnoses Acute on chronic diastolic congestive heart failure I50.33 Heart failure chronicity: acute on chronic Paroxysmal A-fib I48.0 Rheumatic mitral insufficiency I05.1 Pulmonary hypertension I27.20 Essential hypertension I10 Hypertension type: essential hypertension Chronic renal insufficiency, stage V N18.5 Coding Level of Care Code Off vis,est,level 4 Diagnoses Acute on chronic diastolic congestive heart failure I50.33 Heart failure chronicity: acute on chronic Paroxysmal A-fib I48.0 Rheumatic mitral insufficiency I05.1 Pulmonary hypertension I27.20 Essential hypertension I10 Hypertension type: essential hypertension Chronic renal insufficiency, stage V N18.5 09/11/18 1718 <Electronically signed by Norbert SHAFFER> Date Norbert SHAFFER 09/14/18 0729<Electronically signed by Darien Mcclendon MD> Cosigner Signature: Date (if applicable) Darien Mcclendon MD CC: Mat Duffy MD SURGERY VISIT REPORT Observed: 09/09/2018 Status: F Source: [place] 3:09 PM [facility] REPOS[facility]ORY [facility] [address] [place] [address] OFFICE VISIT Date of Service: 09/09/18 MR#: [id number] Acct: [id number] Name: MICHAEL GARCIA Rep #: [id number] : 1945 Provider: Anoop Angeles MD Age/Sex: 72/F Location: [facility] Status: Signed Intake Vital Signs09/09/18 Body Mass Index (BMI) 36.6 Intake Visit Reasons: Fistula Check - Per patient's is due Chief Complaint: recheck fistula Waste Collector Required: No Is patient in pain?: No Allergies No Known Allergies Allergy (Verified 09/09/18 14:39) Medications Aspirin 325 mg PO DAILY@0800 03/01/18 [History Confirmed 09/09/18] Atorvastatin Calcium 40 mg PO QHS 03/01/18 [History Confirmed 09/09/18] Clonidine HCl 0.1 mg PO TID 03/01/18 [History Confirmed 09/09/18] Ergocalciferol [Vitamin D] 1 cap PO QMONTH 03/01/18 [History Confirmed 09/09/18] Insulin Aspart [Novolog Flexpen] See Protocol 03/01/18 [History Confirmed 09/09/18] Insulin Glargine [Lantus SoloStar Pen] 39 units SQ BID 03/01/18 [History Confirmed 09/09/18] pantoprazole 40 mg tablet,delayed release 40 mg PO QDAY 04/06/18 [History Confirmed 09/09/18] amiodarone 200 mg tablet 200 mg PO QDAY 04/28/18 [History Confirmed 09/09/18] calcitriol 0.25 mcg capsule 0.25 mcg PO ONCE 09/09/18 [History Confirmed 09/09/18] furosemide 40 mg tablet 80 mg PO DAILY tab 09/09/18 [History Confirmed 09/09/18] metolazone 5 mg tablet 5 mg PO ONCE 09/09/18 [History Confirmed 09/09/18] metoprolol succinate ER 25 mg capsule sprinkle, ext. release 24 hr 25 mg PO DAILY 09/09/18 [History Confirmed 09/09/18] Is last menstrual period known: No Post menopausal: Yes Patient : No PFSH Medical History Chronic renal insufficiency, stage V (Chronic) Rheumatic mitral insufficiency (Chronic) HTN (hypertension) (Chronic) 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) Morbid obesity (Chronic) Obstructive sleep apnea (Chronic) Type 2 diabetes mellitus (Chronic) History of cerebral hemorrhage (Chronic) Anemia (Chronic) Aortic stenosis, mild (Chronic) Mitral stenosis (Chronic) Stroke (Chronic) Hyperlipidemia (Chronic) Vitamin D deficiency (Chronic) Neuropathic pain (Chronic) Presence of surgically created arteriovenous shunt for hemodialysis (Acute 03/2018) Aortic stenosis (Chronic) Bradycardia (Chronic) Cerebral hemorrhage (Chronic) Depression (Chronic) Dyspnea (Chronic) History of Coumadin therapy (Chronic) Left atrial enlargement (Chronic) Legally blind (Chronic) Lung nodule (Chronic) Palpitations (Chronic) Rheumatic mitral stenosis (Chronic) Wheezing (Chronic) Surgical History S/P craniotomy (Chronic) S/P Achilles tendon repair (Acute) S/P carpal tunnel release (Acute) S/P dialysis catheter insertion (Acute) S/P laparoscopic cholecystectomy (Acute) S/P rotator cuff repair (Acute) S/P tonsillectomy (Acute) Family History Mother Cancer Diabetes Kidney disease Father Heart disease Diabetes Kidney disease Social History Smoking Status: Never smoker second hand exposure: No alcohol intake: never substance use type: does not use caffeine: Yes Type: coffee what type of physical activity do you participate in: none HPI HPI HPI: MICHAEL GARCIA, is a 72 F who presents to the office today for surgical follow-up regarding a transposed left forearm radial to cephalic arteriovenous hemodialysis fistula. She is not yet requiring utilization of it. As of June 04, 2018 removed her tunneled dialysis catheters. She does have multiple medical comorbidities. Her child support agent is Exam Extrem Other: Left forearm: Well-healed transposition incision. Strong pulse, thrill, bruit within the transposed AV fistula. Viable hand. Assessment AND Plan Problems 1. Chronic renal insufficiency, stage V N18.5 Plan 72-year-old female. Today's appointment was to discuss follow- up regarding her left forearm transposed cephalic vein radial artery AV fistula. The however voices that the patient also has ongoing concerns regarding a ventral hernia. This is been discussed before. The patient has significant multiple medical comorbidities including a history of acute and chronic respiratory failure, end-stage renal disease, rheumatic mitral valvular disease, paroxysmal atrial fibrillation, pulmonary hypertension, crest variant of scleroderma. I have suggested to her that I would consider her a high operative risk candidate. As the hernia is not causing her symptoms I am not recommending repair. Regarding her left forearm AV fistula she is not yet on hemodialysis and we will continue to follow-up with her and have an office visit 4 months. I appreciate the opportunity of assisting with her surgical care CC: Dr. Zeenat Harp and Dr.Dasari Anoop Angeles M.D., F.A.C.S. Coding Level of Care Code Off vis,est,level 2 Diagnoses Chronic renal insufficiency, stage V N18.5 09/09/18 1509 <Electronically signed by Anoop Angeles MD> Date Anoop Angeles MD Cosigner Signature: Date (if applicable) CC: Zeenat Harp MD; Domingo Jenkins M.D. 12 LEAD EKG PERFORMED Observed: 09/09/2018 Status: F Source: [place] BY ASIA 1:35 PM [facility] REPOS[facility] [address] [place] [address] 12 Lead EKG performed by ASIA 09/09/18 1334 MR#: [id number] Acct: [id number] Name: MICHAEL GARCIA Rep #: [id number] : 1945 72 From: Norbert SHAFFER Attending Dr: Norbert Bond Status: DEP AMB Ordering Dr: Norbert Bond Date: 09/09/18 Location: [facility] Sex: F C Admitted: BMS/12 Lead EKG performed by [facility] ECG Report Interpretation Sinus Rhythm -Right sided conduction defect and right axis -possible right ventricular hypertrophy or posterior fascicular block Low voltage with rightward P-axis and rotation -possible pulmonary disease. -Poor R-wave progression -may be secondary to pulmonary disease consider old anterior infarct. - Negative precordial T-waves. ABNORMAL Electronically signed on 09/17/2018 at 11:35 by Darien Mcclendon Software Version [id number] 09/17/18 1141 Date Norbert SHAFFER CC: Mat Duffy MD Date Dictated: 09/09/18 1334 Date Transcribed: 09/09/181333 Business Support Administrator: [place] Signed PULMONARY VISIT REPORT Observed: 09/09/2018 Status: F Source: [place] 11:03 AM [facility] [address] [place] [address] OFFICE VISIT Date of Service: 09/09/18 MR#: [id number] Acct: [id number] Name: MICHAEL GARCIA Rep #: [id number] : 1945 Provider: Rocael Valencia MD Age/Sex: 72/F Location: [facility] Status: Signed Assessment AND Plan Problems 1. Pulmonary hypertension I27.20 2. INES (obstructive sleep apnea) G47.33 3. Morbid obesity E66.01 4. CREST variant of scleroderma M34.1 5. Chronic renal insufficiency, stage V N18.5 Plan Patient overall is doing okay. Did stress to the patient the compliance with INES therapy would help her overall condition. Patient does have a 22 pound weight gain since her last visit there is some concern for fluid retention leading to increased oxygen demands. Patient was recommended to keep saturations above 90% at all times. Extensive discussion about low-salt diet. Patient was also advised to use supplemental oxygen with sleep. Ends of fluid retention continues, hospitalization may be required for IV Lasix therapy and close kidney monitoring. Oxygen to keep saturations greater than 90% at all times. May require increased diuretic therapy, but defer to Dr. Cantu Plan Detail Follow Up 3 Months ([facility]) HPI 3 M FU: Chief Complaint: Shortness of breath Details: Patient is a 72-year-old female, currently under the care of Dr. Duffy, who presents for evaluation secondary to continued shortness of breath. Since last visit, patient denies any ER visits, hospitalizations or prednisone burst. Patient does report that she was placed on supplemental oxygen following her 6-minute walk and has been using 2-3 L while awake. Patient states that she intermittently wears supplemental oxygen while sleeping. Patient is noncompliant with BiPAP therapy. Patient states that she is waking up every 1-2 hours at night secondary to a need to urinate. Patient states that her other physicians have ordered a renal ultrasound for evaluation of possible stones. Patient continues to have shortness of breath on exertion. Patient is now using a modified wheelchair anytime she is outside of the home. Patient will continue to ambulate within the home. Patient denies any cough, fever, chills, nausea or vomiting. Patient does report significant pain at her umbilicus. Patient states that she does get a bulge there, especially when she coughs. Patient states that sore most days, but is able to be reduced. Patient reportedly is to see Dr. Angeles later today for evaluation of her fistula. Testing personally reviewed with the patient Walking oximetry (05/19/2018): Ambulated 738 feet over the course of 6 minutes. No supplemental oxygen required at rest, but did require 2 L nasal cannula with exertion. HPI Comments Details: Intake Vital Signs09/09/18 Height 5 ft 5 in 09/09/18 Weight: 100.698 kg 09/09/18 Body Mass Index (BMI) 36.9 Intake Visit Reasons: 3 M FU DME Vendor: Moshe Accompanied by: Allergies No Known Allergies Allergy (Verified 09/09/18 10:14) Medications Acetaminophen [Tylenol 8 Hour] 650 mg PO Q6H PRN 03/01/18 [History Confirmed 09/09/18] Aspirin 325 mg PO DAILY@0800 03/01/18 [History Confirmed 09/09/18] Atorvastatin Calcium 40 mg PO QHS 03/01/18 [History Confirmed 09/09/18] Clonidine HCl 0.1 mg PO TID 03/01/18 [History Confirmed 09/09/18] Ergocalciferol [Vitamin D] 1 cap PO QMONTH 03/01/18 [History Confirmed 09/09/18] Insulin Aspart [Novolog Flexpen] See Protocol 03/01/18 [History Confirmed 09/09/18] Insulin Glargine [Lantus SoloStar Pen] 39 units SQ BID 03/01/18 [History Confirmed 09/09/18] Hydrocodone Bitart/Apap 5-325 [Hitchins 5MG-325MG] 1 tab PO Q6H PRN PRN 2 Days #5 tab 04/02/18 [Rx Confirmed 09/09/18] furosemide 40 mg tablet 40 mg PO .COMPLEX 04/06/18 [History Confirmed 09/09/18] pantoprazole 40 mg tablet,delayed release 40 mg PO QDAY 04/06/18 [History Confirmed 09/09/18] amiodarone 200 mg tablet 200 mg PO QDAY 04/28/18 [History Confirmed 09/09/18] calcitriol 0.25 mcg capsule 0.25 mcg PO ONCE 09/09/18 [History Confirmed 09/09/18] metoprolol succinate ER 25 mg capsule sprinkle, ext. release 24 hr 25 mg PO DAILY 09/09/18 [History Confirmed 09/09/18] PFSH Medical History Chronic renal insufficiency, stage V (Chronic) Rheumatic mitral insufficiency (Chronic) HTN (hypertension) (Chronic) 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) Morbid obesity (Chronic) Obstructive sleep apnea (Chronic) Type 2 diabetes mellitus (Chronic) History of cerebral hemorrhage (Chronic) Anemia (Chronic) Aortic stenosis, mild (Chronic) Mitral stenosis (Chronic) Stroke (Chronic) Hyperlipidemia (Chronic) Vitamin D deficiency (Chronic) Neuropathic pain (Chronic) Presence of surgically created arteriovenous shunt for hemodialysis (Acute 03/2018) Aortic stenosis (Chronic) Bradycardia (Chronic) Cerebral hemorrhage (Chronic) Depression (Chronic) Dyspnea (Chronic) History of Coumadin therapy (Chronic) Left atrial enlargement (Chronic) Legally blind (Chronic) Lung nodule (Chronic) Palpitations (Chronic) Rheumatic mitral stenosis (Chronic) Wheezing (Chronic) Surgical History S/P craniotomy (Chronic) S/P Achilles tendon repair (Acute) S/P carpal tunnel release (Acute) S/P dialysis catheter insertion (Acute) S/P laparoscopic cholecystectomy (Acute) S/P rotator cuff repair (Acute) S/P tonsillectomy (Acute) Family History Mother Cancer Diabetes Kidney disease Father Heart disease Diabetes Kidney disease Social History Smoking Status: Never smoker second hand exposure: No alcohol intake: never substance use type: does not use caffeine: Yes Type: coffee what type of physical activity do you participate in: none Review of Systems Const CONSTITUTIONAL: Positive fatigue and weight gain; negative anorexia, body ache, chills, daytime sleepiness, fever(s), night sweats, oral thrush, stops breathing during sleep, weight loss, sleeping in chair, weight loss, frequent colds, seasonal allergies, other, headache(s) or orthopnea EETM Ear Nose Throat Mouth: Positive hoarseness and hearing normal; negative dry mouth in morning, change in vision, itchy eyes, eye pain, swallowing Difficulty, ear pain, headache(s), mouth pain, nasal congestion, nasal discharge, sinus pain, sinus pressure, sore throat, other, hard of hearing, nose bleed or post nasal drip Cardio Cardiovascular: Positive edema Location: lower extremity and murmur (Grade 2/6 ); negative chest pain, chest pain at rest, chest pain with activity, irregular heart rhythm, shortness of breath when lying down, palpitations or other Resp Respiratory: Positive as per HPI and shortness of breath shortness of breath: Positive with activity; negative pain with cough, wheezing, chest congestion, cough, chest tightness, pain on inspiration, inhalers, increase use of rescue inhalers, snoring, apnea or other Gastro Gastrointestional: Negative bloody stools, change in appetite, difficulty swallowing, reflux, hematemesis, melena stool, loose stool, constipation or other Genitourinary: Positive nocturia; negative blood in urine, pain with urination or other Musc Musculoskeletal: Negative body pain, back pain, neck pain or other Skin/Breast Skin/Breast: Negative dry skin, itching, unusual bruising, breast lump, other or rash Neuro Neurological: Negative restless legs, confusion, weakness or other Psych Psychocological: Positive abnormal sleep pattern; negative anxiety, thoughts of hurting self/others, hopelessness or other Lymph Lymphatic: Negative easy bleeding, easy bruising, other or swollen lymph nodes Exam Const Constitutional: Positive conversant, cooperative, in no acute respiratory distress, well developed, good hygiene, wearing supplemental oxygen, appears older than stated age, frail appearing and obese Head Head: Positive normocephalic and atraumatic; negative cyanosis of lips/distal nose, frontal sinus tenderness or maxillary sinus tenderness Eyes Eye: Positive clear conjunctiva; negative nystagmus, scleral abnormality or cataract present Ears Ear: Positive hearing normal and external ears normal; negative hard of hearing Nose Nose: Positive external nose normal, septum normal and no nasal discharge; negative epistaxis or nasal polyp Mouth Mouth: Positive oral mucosae normal, no lesions and crowded posterior oropharynx; negative post nasal drip, malodorous breath or oral thrush present Mallampati Score: IV: Mallampati Score Neck Neck: Positive normal visual inspection, full ROM, trachea midline and female neck greater than 37 cm (15 in); negative lymphadenopathy or JVD Chest Wall Chest: Positive normal inspection of the chest and symmetric chest movement; negative crepitus or tenderness Resp lung sounds: Positive diminished, normal expiratory time and normal respiratory effort; negative wheezes, rhonchi, rales, use of accessory muscles, wheeze present on forced exhalation or dullness to percussion Cardio Cardiac: Positive murmur (Grade 2/6 ) murmur: Positive RUSB, regular rate, regular rhythm, S1 normal and S2 normal; negative rub or gallop GI GI: Positive normal to inspection, normal bowel sounds and obese; negative distended, ascites or epigastric tenderness Genitourinary: Positive deferred Musc Musculoskeletal: Positive in a wheelchair; negative kyphosis or scoliosis Skin Pulmonary Skin Exam: Positive intact and dermal atrophy; negative rash, lesion, ulcers or erythema Pulses Pulse: Yes radial pulses present Extremities Extremities: Yes capillary refill normal, No clubbing, No cyanosis, Yes edema (2+) Location: lower extremity Neuro Neurologic: Yes conversant, Yes no focal neuro deficits, Yes cooperative, Yes normal cognition, Yes normal coordination Lymph Lymphatic: No lymphadenopathy Psych Appearance: Positive grossly normal Mental Status: Positive mental status grossly normal Mood: Positive congruent mood Affect: Positive normal affect Coding Level of Care Code Off vis,est,level 4 Diagnoses Pulmonary hypertension I27.20 INES (obstructive sleep apnea) G47.33 Morbid obesity E66.01 CREST variant of scleroderma M34.1 Chronic renal insufficiency, stage V N18.5 09/09/18 1103 <Electronically signed by Rocael Valencia MD> Date Rocael Valencia MD Cosigner Signature: Date (if applicable) CC: Mat Duffy MD CBC-COMPLETE BLOOD CNT Collected: 08/10/2018 Status: F Source: [place] NO DIFF 10:09 AM [facility] [place] REPOS[facility] TYPE CODE TESTS RESULT OUT OF RANGE REFERENCE UNITS LAB L100.1000 4.4-11.0 K/mm3 Normal WBC 4.9 LAB L100.1200 4.2-5.4 M/mm3 Low RBC 3.26 LAB L100.1300 12.0-15.0 g/dl Low HGB 10.5 LAB L100.1400 37-47 % Low HCT 32.7 LAB L100.1500 81-99 fL High MCV 100.3 LAB L100.1600 27.0-32.0 pg High MCH 32.2 LAB L100.1700 32-36 g/gl Normal MCHC 32.1 LAB L100.1810 11.6-14.6 % High RDW CV 14.9 LAB L100.1820 35.1-43.9 fl High RDW SD 52.6 LAB L100.1900 150-450 K/mm3 Normal PLT 163 LAB L100.2000 6.2-12.0 fl Normal MPV 9.4 Performed By: #### L100.0500 #### [facility] [address] [place], [address] PROTEIN+CREATININE Collected: Status: F Source: [facility]STOP[facility] RATIO,URINE 08/10/2018 10:09 AM [facility] REPOSIT[facility] TYPE CODE TESTS RESULT OUT OF RANGE REFERENCE UNITS LAB L501.1200 NO RANGE EST. mg/dL Normal UR CREAT 79.60 LAB L501.1930 <11.9 mg/dL High 60.0 PROTEIN,UR.R AN. LAB L501.1940 0-200 mg/g CRE High PROT:CRE 754 RATIO Performed By: #### L501.0900 #### [facility] [address] [place], [place], [address] RENAL PROFILE Collected: 08/10/2018 Status: F Source: [facility] 10:09 AM [facility] REPOS[facility]ORY TYPE CODE TESTS RESULT OUT OF RANGE REFERENCE UNITS LAB L501.0100 74-106 mg/dL High GLU 128 Result Comment: Fasting Glucose result greater than or equal to 126 mg/dL suggests DIABETES MELLITUS per A.D.A. criteria. Please note revised GLUCOSE reference range effective 2017. LAB L501.1000 7-18 mg/dL High BUN 44 LAB L501.1100 0.55-1.02 mg/dL High CREAT,SERUM 2.06 Result Comment: The validity of the calculated GFR AND GFRAA in patients over 70 years has not been determined. Clinical correlation is essential. LAB L501.1110 >60 mL/min Low EST GFR 25 Result Comment: Non- GFR Calc LAB L501.1115 >60 mL/min Low EST GFR - AA 31 Result Comment: GFR Calc LAB L501.1300 10-20 RATIO High BUN/CRE 21.4 LAB L501.1800 3.2-5.0 g/dL Normal ALB 3.2 LAB L501.2200 8.5-10.1 mg/dL CA Normal 8.6 LAB L501.2300 2.5-4.9 mg/dL Normal PHOS 3.7 LAB L501.5300 136-145 mmol/L NA Normal 142 LAB L501.5600 3.5-5.1 mmol/L K Normal 4.6 LAB L501.5900 98-107 mmol/L CL Normal 103 LAB L501.6100 21.0-32.0 mmol/L Normal CO2 30.0 Performed By: #### L500.3600 #### [facility] [address] [place], [place], [address] PTHIN Collected: 08/10/2018 Status: F Source: [facility] 10:09 AM [facility] [place] REPOSITORY TYPE CODE TESTS RESULT OUT OF RANGE REFERENCE UNITS LAB L509.1000 18.4-80.1 pg/mL High PTHIN 169.7 Performed By: #### L509.1000 #### [facility] [address] [place], [place], [address] VITAMIN D,25 HYDROXY Collected: 08/10/2018 Status: F Source: [facility] 10:09 AM [facility] [place] REPOSITORY TYPE CODE TESTS RESULT OUT OF RANGE REFERENCE UNITS LAB L506.1000 29.95-100.01 ng/mL Normal Vitamin D 37.3 25-OH Result Comment: Vitamin D 25(OH) Status Range Deficiency <20 ng/mL (50nmol/L) Insuffciency 20 - 30 ng/mL (50 - 75 nmol/L) Sufficiency 30 - 100 ng/mL (75 - 250 nmol/L) Toxicity >100 ng/mL (>250 nmol/L) Performed By: #### L506.1000 #### [facility] [address] [place], [address] HEMOGLOBIN A1C Collected: 06/24/2018 Status: F Source: [facility] 11:43 AM [facility] REPOSITORY Order Comment: PLEASE SEND RESULTS TO DR. JENKINS AND DR HOUSE BOTH PER PT REQUEST. TYPE CODE TESTS RESULT OUT OF RANGE REFERENCE UNITS LAB L501.9985 4.2-6.3 % High HGB A1C 7.9 Performed By: #### L501.9985 #### [facility] [address] [place], [address] CBC-COMPLETE BLOOD CNT Collected: 06/24/2018 Status: F Source: [facility] NO DIFF 11:26 AM [facility] REPOSIT[facility] TYPE CODE TESTS RESULT OUT OF RANGE REFERENCE UNITS LAB L100.1000 4.4-11.0 K/mm3 Normal WBC 5.5 LAB L100.1200 4.2-5.4 M/mm3 Low RBC 3.58 LAB L100.1300 12.0-15.0 g/dl Low HGB 11.3 LAB L100.1400 37-47 % Low HCT 34.4 LAB L100.1500 81-99 fL Normal MCV 96.1 LAB L100.1600 27.0-32.0 pg Normal MCH 31.6 LAB L100.1700 32-36 g/gl Normal MCHC 32.8 LAB L100.1810 11.6-14.6 % Normal RDW CV 14.5 LAB L100.1820 35.1-43.9 fl High RDW SD 48.4 LAB L100.1900 150-450 K/mm3 Normal PLT 166 LAB L100.2000 6.2-12.0 fl Normal MPV 9.9 Performed By: #### L100.0500 #### [facility] [address] [place], [address] PROTEIN+CREATININE Collected: Status: F Source: CHRISTOPHER RATIO,URINE 06/24/2018 11:26 AM [facility] REPOS[facility] Order Comment: PLEASE SEND RESULTS TO DR. JENKINS AND DR HOUSE BOTH PER PT REQUEST. TYPE CODE TESTS RESULT OUT OF RANGE REFERENCE UNITS LAB L501.1200 NO RANGE EST. mg/dL Normal UR CREAT 110.00 LAB L501.1930 <11.9 mg/dL High 34.1 PROTEIN,UR.R AN. LAB L501.1940 0-200 mg/g CRE High PROT:CRE 310 RATIO Performed By: #### L501.0900 #### [facility] [address] [place], [address] PTHIN Collected: 06/24/2018 Status: F Source: [facility] 11:26 AM [facility] [place] RE[facility] Order Comment: PLEASE SEND RESULTS TO DR. JENKINS AND DR HOUSE BOTH PER PT REQUEST. TYPE CODE TESTS RESULT OUT OF RANGE REFERENCE UNITS LAB L509.1000 18.4-80.1 pg/mL High PTHIN 219.2 Performed By: #### L509.1000 #### [facility] [address] [place], [address] VITAMIN D,25 HYDROXY Collected: 06/24/2018 Status: F Source: [facility]HER 11:26 AM [facility] [place] RE[facility] Order Comment: PLEASE SEND RESULTS TO DR. JENKINS AND DR HOUSE BOTH PER PT REQUEST. TYPE CODE TESTS RESULT OUT OF RANGE REFERENCE UNITS LAB L506.1000 29.95-100.01 ng/mL Normal Vitamin D 35.7 25-OH Result Comment: Vitamin D 25(OH) Status Range Deficiency <20 ng/mL (50nmol/L) Insuffciency 20 - 30 ng/mL (50 - 75 nmol/L) Sufficiency 30 - 100 ng/mL (75 - 250 nmol/L) Toxicity >100 ng/mL (>250 nmol/L) Performed By: #### L506.1000 #### [facility] [address] [place], [address] PROTEIN, TOTAL Collected: 06/24/2018 Status: F Source: [place] 11:26 AM [facility] [place] [facility] Order Comment: PLEASE SEND RESULTS TO DR. JENKINS AND DR HOUSE BOTH PER PT REQUEST. TYPE CODE TESTS RESULT OUT OF RANGE REFERENCE UNITS LAB L501.1500 6.4-8.2 g/dL Normal T PROT 8.0 LAB L501.1950 2.2-4.2 g/dL High GLOB 4.7 LAB L501.2000 0.9-2.4 RATIO Low A/G 0.7 Performed By: #### L001.0705, L500.3600, L500.4100, L501.4100, L501.4305, L501.4405, L501.4600, L501.4700 #### [facility] [address] [place], [address] RENAL PROFILE Collected: 06/24/2018 Status: F Source: [place] 11:26 AM [facility] [facility] Order Comment: PLEASE SEND RESULTS TO DR. JENKINS AND DR HOUSE BOTH PER PT REQUEST. TYPE CODE TESTS RESULT OUT OF RANGE REFERENCE UNITS LAB L501.0100 74-106 mg/dL Normal GLU 92 Result Comment: Please note revised GLUCOSE reference range effective 2017. LAB L501.1000 7-18 mg/dL High BUN 41 LAB L501.1100 0.55-1.02 mg/dL High CREAT,SERUM 2.29 Result Comment: The validity of the calculated GFR AND GFRAA in patients over 70 years has not been determined. Clinical correlation is essential. LAB L501.1110 >60 mL/min Low EST GFR 22 Result Comment: Non- GFR Calc LAB L501.1115 >60 mL/min Low EST GFR - AA 27 Result Comment: GFR Calc LAB L501.1300 10-20 RATIO Normal BUN/CRE 17.9 LAB L501.1800 3.2-5.0 g/dL Normal ALB 3.3 LAB L501.2200 8.5-10.1 mg/dL CA Normal 8.5 LAB L501.2300 2.5-4.9 mg/dL Normal PHOS 2.9 LAB L501.5300 136-145 mmol/L NA Normal 142 LAB L501.5600 3.5-5.1 mmol/L K Normal 4.1 LAB L501.5900 98-107 mmol/L CL Normal 102 LAB L501.6100 21.0-32.0 mmol/L Normal CO2 30.0 Performed By: #### L001.0705, L500.3600, L500.4100, L501.4100, L501.4305, L501.4405, L501.4600, L501.4700 #### [facility] [address] [place], [address] LIPID PROFILE Collected: 06/24/2018 Status: F Source: [facility] 11:26 AM [facility] [facility] Order Comment: PLEASE SEND RESULTS TO DR. JENKINS AND DR HOUSE BOTH PER PT REQUEST. TYPE CODE TESTS RESULT OUT OF RANGE REFERENCE UNITS LAB L501.4900 200 mg/dL Normal CHOL 153 Result Comment: <200 mg/dL Desirable 200-240 mg/dL Borderline >240 mg/dL High Risk LAB L501.5000 mg/dL Normal TRIG 136 Result Comment: The drugs N-Acetylcysteine and Metamizole may falsely depress this assay. Serum Triglycerides Reference Interval Normal <150 mg/dL Borderline high 150 - 199 mg/dL High 200 - 499 mg/dL Very High > or = 500 mg/dL LAB L501.6400 mg/dL Low HDL 35 Result Comment: The drugs N-Acetylcysteine and Metamizole may falsely depress this assay. Reference Range HDL <40 mg/dL Low HDL Cholesterol HDL >or= 60 mg/dL High HDL Cholesterol LAB L501.6500 0-130 mg/dL Normal LDL 91 LAB L501.6600 5-40 mg/dL Normal VLDL 27 Performed By: #### L001.0705, L500.3600, L500.4100, L501.4100, L501.4305, L501.4405, L501.4600, L501.4700 #### [facility] [address] [place], [place], [address] (167) AST(SGOT) Collected: 06/24/2018 Status: F Source: [place] 11:26 AM [facility] [facility] Order Comment: PLEASE SEND RESULTS TO DR. JENKINS AND DR HOUSE BOTH PER PT REQUEST. TYPE CODE TESTS RESULT OUT OF RANGE REFERENCE UNITS LAB L501.4100 15-37 U/L Low AST 7 Performed By: #### L001.0705, L500.3600, L500.4100, L501.4100, L501.4305, L501.4405, L501.4600, L501.4700 #### [facility] [address] [place], [place], [address] ALKALINE PHOSPHATASE Collected: 06/24/2018 Status: F Source: [place] 11:26 AM [facility] [facility] Order Comment: PLEASE SEND RESULTS TO DR. JENKINS AND DR HOUSE BOTH PER PT REQUEST. TYPE CODE TESTS RESULT OUT OF RANGE REFERENCE UNITS LAB L501.4305 45-117 U/L Normal ALK P 111 Performed By: #### L001.0705, L500.3600, L500.4100, L501.4100, L501.4305, L501.4405, L501.4600, L501.4700 #### [facility] [address] [place], [place], [id number] ALANINE AMINOTRANSFERAS Collected: 06/24/2018 Status: F Source: [place] (SGPT) 11:26 AM [facility] [facility] Order Comment: PLEASE SEND RESULTS TO DR. JENKINS AND DR HOUSE BOTH PER PT REQUEST. TYPE CODE TESTS RESULT OUT OF RANGE REFERENCE UNITS LAB L501.4405 13-56 U/L Normal ALT 15 Performed By: #### L001.0705, L500.3600, L500.4100, L501.4100, L501.4305, L501.4405, L501.4600, L501.4700 #### [facility] [address] [place], [place], [address] TOTAL BILIRUBIN Collected: 06/24/2018 Status: F Source: [place] 11:26 AM [facility] Order Comment: PLEASE SEND RESULTS TO DR. JENKINS AND DR HOUSE BOTH PER PT REQUEST. TYPE CODE TESTS RESULT OUT OF RANGE REFERENCE UNITS LAB L501.4600 0.20-1.00 mg/dL Normal T BILI 0.50 Performed By: #### L001.0705, L500.3600, L500.4100, L501.4100, L501.4305, L501.4405, L501.4600, L501.4700 #### [facility] [address] [place], [place], [address] BILIRUBIN, DIRECT Collected: 06/24/2018 Status: F Source: [place] 11:26 AM [facility] Order Comment: PLEASE SEND RESULTS TO DR. JENKINS AND DR HOUSE BOTH PER PT REQUEST. TYPE CODE TESTS RESULT OUT OF RANGE REFERENCE UNITS LAB L501.4700 0.00-0.30 mg/dL Normal D BILI 0.19 Performed By: #### L001.0705, L500.3600, L500.4100, L501.4100, L501.4305, L501.4405, L501.4600, L501.4700 #### [facility] [address] [place], [place], [address] RENAL PROFILE Collected: 06/09/2018 Status: F Source: [place] 7:41 AM [facility] [facility] TYPE CODE TESTS RESULT OUT OF RANGE REFERENCE UNITS LAB L501.0100 74-106 mg/dL High GLU 171 Result Comment: Fasting Glucose result greater than or equal to 126 mg/dL suggests DIABETES MELLITUS per A.D.A. criteria. Please note revised GLUCOSE reference range effective 2017. LAB L501.1000 7-18 mg/dL High BUN 41 LAB L501.1100 0.55-1.02 mg/dL High CREAT,SERUM 2.14 Result Comment: The validity of the calculated GFR AND GFRAA in patients over 70 years has not been determined. Clinical correlation is essential. LAB L501.1110 >60 mL/min Low EST GFR 24 Result Comment: Non- GFR Calc LAB L501.1115 >60 mL/min Low EST GFR - AA 29 Result Comment: GFR Calc LAB L501.1300 10-20 RATIO Normal BUN/CRE 19.2 LAB L501.1800 3.2-5.0 g/dL Low ALB 3.1 LAB L501.2200 8.5-10.1 mg/dL Low CA 7.9 LAB L501.2300 2.5-4.9 mg/dL Normal PHOS 3.8 LAB L501.5300 136-145 mmol/L NA Normal 143 LAB L501.5600 3.5-5.1 mmol/L K Normal 4.2 LAB L501.5900 98-107 mmol/L CL Normal 104 LAB L501.6100 21.0-32.0 mmol/L Normal CO2 28.0 Performed By: #### L500.3600 #### [facility] [address] [place], [place], [address] SURGERY VISIT REPORT Observed: 06/04/2018 Status: F Source: [place] 8:03 AM [facility] RE[facility] [address] [place] [address] OFFICE VISIT Date of Service: 06/04/18 MR#: [id number] Acct: [id number] Name: MICHAEL GARCIA Rep #: [id number] : 1945 Provider: Anoop Angeles MD Age/Sex: 72/F Location: [facility] Status: Signed Intake Intake Visit Reasons: Cath Removal Chief Complaint: post fistula placement Allergies No Known Allergies Allergy (Verified 05/19/18 13:03) Medications Acetaminophen [Tylenol 8 Hour] 650 mg PO Q6H PRN 03/01/18 [History Confirmed 04/28/18] Aspirin 325 mg PO DAILY@0800 03/01/18 [History Confirmed 04/28/18] Atorvastatin Calcium 40 mg PO QHS 03/01/18 [History Confirmed 04/28/18] Clonidine HCl 0.1 mg PO TID 03/01/18 [History Confirmed 04/28/18] Ergocalciferol [Vitamin D] 1 cap PO QMONTH 03/01/18 [History Confirmed 04/28/18] Insulin Aspart [Novolog Flexpen] See Protocol 03/01/18 [History Confirmed 04/28/18] Insulin Glargine [Lantus SoloStar Pen] 39 units SQ BID 03/01/18 [History Confirmed 04/28/18] Hydrocodone Bitart/Apap 5-325 [Hitchins 5MG-325MG] 1 tab PO Q6H PRN PRN 2 Days #5 tab 04/02/18 [Rx Confirmed 04/28/18] furosemide 40 mg tablet 40 mg PO .COMPLEX 04/06/18 [History Confirmed 04/28/18] pantoprazole 40 mg tablet,delayed release 40 mg PO QDAY 04/06/18 [History Confirmed 04/28/18] amiodarone 200 mg tablet 200 mg PO QDAY 04/28/18 [History Confirmed 04/28/18] PFSH Medical History Chronic renal insufficiency, stage V (Chronic) Rheumatic mitral insufficiency (Chronic) HTN (hypertension) (Chronic) 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) Morbid obesity (Chronic) Obstructive sleep apnea (Chronic) Type 2 diabetes mellitus (Chronic) History of cerebral hemorrhage (Chronic) Anemia (Chronic) Aortic stenosis, mild (Chronic) Mitral stenosis (Chronic) Stroke (Chronic) Hyperlipidemia (Chronic) Vitamin D deficiency (Chronic) Neuropathic pain (Chronic) Presence of surgically created arteriovenous shunt for hemodialysis (Acute 03/2018) Aortic stenosis (Chronic) Bradycardia (Chronic) Cerebral hemorrhage (Chronic) Depression (Chronic) Dyspnea (Chronic) History of Coumadin therapy (Chronic) Left atrial enlargement (Chronic) Legally blind (Chronic) Lung nodule (Chronic) Palpitations (Chronic) Rheumatic mitral stenosis (Chronic) Wheezing (Chronic) Surgical History S/P craniotomy (Chronic) S/P Achilles tendon repair (Acute) S/P carpal tunnel release (Acute) S/P dialysis catheter insertion (Acute) S/P laparoscopic cholecystectomy (Acute) S/P rotator cuff repair (Acute) S/P tonsillectomy (Acute) Family History Mother Cancer Diabetes Kidney disease Father Heart disease Diabetes Kidney disease Social History Smoking Status: Never smoker second hand exposure: No alcohol intake: never substance use type: does not use caffeine: Yes Type: coffee what type of physical activity do you participate in: none HPI HPI HPI: MICHAEL GARCIA, is a 72 F who presents to the office today for surgical removal of tunneled dialysis catheters. The patient has a transposed left forearm cephalic vein to radial artery arteriovenous fistula. It has a wonderful pulse, thrill, bruit. She presents now for removal of her right IJ tunneled dialysis catheters. She is not currently requiring hemodialysis. Office Procedures Port/Cath Removal Provider Documentation Details:: Removal right internal jugular tunneled dialysis catheters Timeout and informed consent was obtained. 9-year-old female was taken to procedure room. Placed on the table of head of bed slightly elevated. The right check was sterilely prepped and draped. 1% lidocaine mixed 50-50 with 0.5% Marcaine was used as a local anesthetic. A total of 6 cc was used. A transverse counter incision is made directly over the cuff. Sharp and blunt dissection was used to identify and release the cuff. The tubing was removed from the right internal jugular vein with continuous pressure held upon the tunnel site. The counterincision was closed with interrupted 3-0 chromic subdermal stitches. The catheter was cleanly removed. Steri-Strips Telfa OpSite dressings were applied. Blood loss was minimal. She tolerated procedure well without apparent complication. Postoperative wound instructions were provided. Anoop Angeles M.D., F.A.C.S. Port/Peg [id number] Dialysis Cath Remov Assessment AND Plan Problems 1. Problem with dialysis access, initial encounter T82.231G Plan Successfully removed right internal jugular dialysis catheter. Very nicely functioning transposed left forearm cephalic vein to radial artery arteriovenous fistula. Not currently on hemodialysis. The patient will return to my office in 3 months time for routine surgical follow-up regarding her left forearm AV fistula. Anoop Angeles M.D., F.A.C.S. Orders Orders: Coding Level of Care Code Attention Silk Screen Operator Diagnoses Problem with dialysis access, initial encounter T82.947E Encounter type: initial encounter Additional Codes Port/Peg - Port/Pe Dialysis Cath Remov (15230) 06/04/18 0803 <Electronically signed by Anoop Angeles MD> Date Anoop Cuellar Signature: Date (if applicable) CC: BASIC METABOLIC Collected: 06/01/2018 Status: F Source: [facility] PROFILE (BMP) 9:37 AM [facility] TYPE CODE TESTS RESULT OUT OF RANGE REFERENCE UNITS LAB L501.0100 74-106 mg/dL High GLU 218 Result Comment: Glucose result greater than or equal to 200 mg/dL suggests DIABETES MELLITUS per A.D.A. criteria. Please note revised GLUCOSE reference range effective 2017. LAB L501.1000 7-18 mg/dL High BUN 60 LAB L501.1100 0.55-1.02 mg/dL High CREAT,SERUM 2.41 Result Comment: The validity of the calculated GFR AND GFRAA in patients over 70 years has not been determined. Clinical correlation is essential. LAB L501.1110 >60 mL/min Low EST GFR 21 Result Comment: Non- GFR Calc LAB L501.1115 >60 mL/min Low EST GFR - AA 26 Result Comment: GFR Calc LAB L501.1300 10-20 RATIO High BUN/CRE 24.9 LAB L501.2200 8.5-10.1 mg/dL Low CA 8.1 LAB L501.5300 136-145 mmol/L NA Normal 141 LAB L501.5600 3.5-5.1 mmol/L K Normal 4.2 LAB L501.5900 98-107 mmol/L High CL 108 LAB L501.6100 21.0-32.0 mmol/L Normal CO2 25.0 LAB L501.6200 5-15 Normal GAP 8 Performed By: #### L500.2500, L500.3600 #### [facility] [address] [place], [address] RENAL PROFILE Collected: 06/01/2018 Status: F Source: [facility] 9:37 AM [facility] REPOSITORY TYPE CODE TESTS RESULT OUT OF RANGE REFERENCE UNITS LAB L501.0100 74-106 mg/dL High GLU 218 Result Comment: Glucose result greater than or equal to 200 mg/dL suggests DIABETES MELLITUS per A.D.A. criteria. Please note revised GLUCOSE reference range effective 2017. LAB L501.1000 7-18 mg/dL High BUN 60 LAB L501.1100 0.55-1.02 mg/dL High CREAT,SERUM 2.41 Result Comment: The validity of the calculated GFR AND GFRAA in patients over 70 years has not been determined. Clinical correlation is essential. LAB L501.1110 >60 mL/min Low EST GFR 21 Result Comment: Non- GFR Calc LAB L501.1115 >60 mL/min Low EST GFR - AA 26 Result Comment: GFR Calc LAB L501.1300 10-20 RATIO High BUN/CRE 24.9 LAB L501.2200 8.5-10.1 mg/dL Low CA 8.1 LAB L501.5300 136-145 mmol/L NA Normal 141 LAB L501.5600 3.5-5.1 mmol/L K Normal 4.2 LAB L501.5900 98-107 mmol/L High CL 108 LAB L501.6100 21.0-32.0 mmol/L Normal CO2 25.0 LAB L501.1800 3.2-5.0 g/dL Normal ALB 3.2 LAB L501.2300 2.5-4.9 mg/dL Normal PHOS 3.0 Performed By: #### L500.2500, L500.3600 #### [facility] [address] [place], [place], [address] BASIC METABOLIC Collected: 05/25/2018 Status: F Source: [facility] PROFILE ([facility]) 1:14 PM [facility] REPOSITORY TYPE CODE TESTS RESULT OUT OF RANGE REFERENCE UNITS LAB L501.0100 74-106 mg/dL High GLU 163 Result Comment: Fasting Glucose result greater than or equal to 126 mg/dL suggests DIABETES MELLITUS per A.D.A. criteria. Please note revised GLUCOSE reference range effective 2017. LAB L501.1000 7-18 mg/dL High BUN 64 LAB L501.1100 0.55-1.02 mg/dL High CREAT,SERUM 2.28 Result Comment: The validity of the calculated GFR AND GFRAA in patients over 70 years has not been determined. Clinical correlation is essential. LAB L501.1110 >60 mL/min Low EST GFR 23 Result Comment: Non- GFR Calc LAB L501.1115 >60 mL/min Low EST GFR - AA 27 Result Comment: GFR Calc LAB L501.1300 10-20 RATIO High BUN/CRE 28.1 LAB L501.2200 8.5-10.1 mg/dL CA Normal 8.6 LAB L501.5300 136-145 mmol/L NA Normal 142 LAB L501.5600 3.5-5.1 mmol/L K Normal 4.6 LAB L501.5900 98-107 mmol/L CL Normal 105 LAB L501.6100 21.0-32.0 mmol/L Normal CO2 25.0 LAB L501.6200 5-15 Normal GAP 12 Performed By: #### L500.2500 #### [facility] [address] [place], [address] SURGERY VISIT REPORT Observed: 05/19/2018 Status: F Source: [place] 1:18 PM [facility] REPOSITORY [facility] [address] [place] [address] OFFICE VISIT Date of Service: 05/19/18 MR#: [id number] Acct: [id number] Name: MICHAEL GARCIA Rep #: [id number] : 1945 Provider: Anoop Angeles MD Age/Sex: 72/F Location: [facility] Status: Signed Intake Intake Visit Reasons: Fistula Creation 04/02 Chief Complaint: post fistula placement Waste Collector Required: No Is patient in pain?: No Allergies No Known Allergies Allergy (Verified 05/19/18 13:03) Medications Acetaminophen [Tylenol 8 Hour] 650 mg PO Q6H PRN 03/01/18 [History Confirmed 04/28/18] Aspirin 325 mg PO DAILY@0800 03/01/18 [History Confirmed 04/28/18] Atorvastatin Calcium 40 mg PO QHS 03/01/18 [History Confirmed 04/28/18] Clonidine HCl 0.1 mg PO TID 03/01/18 [History Confirmed 04/28/18] Ergocalciferol [Vitamin D] 1 cap PO QMONTH 03/01/18 [History Confirmed 04/28/18] Insulin Aspart [Novolog Flexpen] See Protocol 03/01/18 [History Confirmed 04/28/18] Insulin Glargine [Lantus SoloStar Pen] 39 units SQ BID 03/01/18 [History Confirmed 04/28/18] Hydrocodone Bitart/Apap 5-325 [Hitchins 5MG-325MG] 1 tab PO Q6H PRN PRN 2 Days #5 tab 04/02/18 [Rx Confirmed 04/28/18] furosemide 40 mg tablet 40 mg PO .COMPLEX 04/06/18 [History Confirmed 04/28/18] pantoprazole 40 mg tablet,delayed release 40 mg PO QDAY 04/06/18 [History Confirmed 04/28/18] amiodarone 200 mg tablet 200 mg PO QDAY 04/28/18 [History Confirmed 04/28/18] Is last menstrual period known: No Post menopausal: Yes Patient : No Subjective Details: 72-year-old female. She has indwelling right internal jugular tunneled dialysis catheters. On March 25, 2018 she had transposition left forearm cephalic vein radial artery AV fistula creation. She has no complaints today. She states that for the past 3 weeks she has not required hemodialysis via her tunneled catheters. Objective Details: Left forearm radiocephalic transposed fistula has had wonderful pulse, thrill, bruit. The hand is cool but she claims asymptomatic Assessment AND Plan Problems 1. Chronic renal insufficiency, stage V N18.5 Plan The patient states that she is not currently undergoing hemodialysis although she does have tunneled dialysis catheter 10. She has not required dialysis for 3 weeks. She has a functioning nicely maturing left forearm transposed cephalic vein to radial artery arteriovenous fistula. I am very pleased with that. We will now schedule her for removal of her tunneled dialysis catheters. She has had an opportunity to ask and have questions answered. We will try to expedite her care. Anoop Angeles M.D., F.A.C.S. cc:Dr Jenkins Coding Level of Care Code Global Post Op Diagnoses Chronic renal insufficiency, stage V N18.5 05/19/18 1318 <Electronically signed by Anoop Angeles MD> Date Anoop Mckeon Signature: Date (if applicable) CC: Domingo Jenkins M.D.; Mat Duffy MD 6 MINUTE WALK TEST Observed: 05/19/2018 Status: F Source: [facility] 11:01 AM [facility] REPOSITORY [facility] Pulmonary Services/Neurology [facility] [place] [address] MR#: [id number] Acct: [id number] Name: MICHAEL GARCIA Rep #: [id number] : 1945 72 From: Aydin Carroll DO Referring Dr: Josi Hickman NP Date: Ordering Dr: Sex: F C Location: PSN PSN 6 Minute Walk Test - 6 Minute Walk Test 6 Minute Walk Test: 6 Minute Walk Test PSN:6-Minute Walk Test Start: 05/19/18 08:35 Freq: Status: Active Protocol: [id number] Document 05/19/18 08:35 NEHEMIAS (Rec: 05/19/18 08:41 [email or web address] [id number]) 6 Minute Walk Test Date Performed 05/19/18 Time Performed 08:15 Height 5 ft 5 in Weight: 200 lb Weight in Pounds 200.[address]: Rocael Valencia Assistive device used: Walker Pre-test Oxygen Delivery Method Room Air Pulse Ox (%) 91 Pulse Rate (60-100 beats/min) 64 Dyspnea Nabila Scale (0-10) 0 Exertion Nabila Scale (6-20) 6 1st minute Oxygen Delivery Method Room Air Pulse Ox (%) 86 Pulse Rate (60-100 beats/min) 93 Dyspnea Nabila Scale (0-10) 0.5 2nd minute Oxygen Flow Rate (L/min) (L/min) 2 Oxygen Delivery Method Nasal Cannula Pulse Ox (%) 95 Pulse Rate (60-100 beats/min) 91 3rd minute Oxygen Flow Rate (L/min) (L/min) 2 Oxygen Delivery Method Nasal Cannula Pulse Ox (%) 95 Pulse Rate (60-100 beats/min) 104 H 4th minute Oxygen Flow Rate (L/min) (L/min) 2 Oxygen Delivery Method Nasal Cannula Pulse Ox (%) 96 Pulse Rate (60-100 beats/min) 113 H 5th minute Oxygen Flow Rate (L/min) (L/min) 2 Oxygen Delivery Method Nasal Cannula Pulse Ox (%) 95 Pulse Rate (60-100 beats/min) 116 H 6th minute Oxygen Flow Rate (L/min) (L/min) 2 Oxygen Delivery Method Nasal Cannula Pulse Ox (%) 94 Pulse Rate (60-100 beats/min) 119 H Dyspnea Nabila Scale (0-10) 2 Exertion Nabila Scale (6-20) 12 Post-test Oxygen Flow Rate (L/min) (L/min) 2 Oxygen Delivery Method Nasal Cannula Pulse Ox (%) 96 Pulse Rate (60-100 beats/min) 80 Full Laps Walked 12 Partial Lap, Number of Tiles Walked 30 Total Distance Walked (ft) 738 05/19/18 08:39 Cardiopulmonary Services by Gwen Maurer Patient wears 2 lpm O2 at home. Patient came in on own pulse dose portable concentrator. After 15 minutes on room air SpO2 91%, started testing on room air. By the 1st minute SpO2 86%, patient stated she had little to no shortness of breath. Placed patient on own portable concentrator at 2 lpm pulse dose for the rest of testing. Initialized on 05/19/18 08:39 - END OF NOTE - Interpretation Interpretation: The patient ambulated 738 feet over the course of 6 minutes, with use of a walker, beginning on room air. Pretesting oxygen saturation was noted to be 91% on room air. With ambulation, the janes oxygen saturation was 86% at minute 1 of testing. 2 L/min of supplemental oxygen was applied and the patient was able to complete the remainder of the test, while maintaining oxygen saturations at or above 88%. This testing indicated the presence of impaired walk distance and significant exertional oxygen desaturation. - Recommendations Recommendations: 2 L/min of supplemental oxygen should be utilized with exertion. 05/19/18 1101 <Electronically signed by Aydin Carroll DO> Date Aydin Carroll DO CC: Date Dictated: 05/19/181058 Date Transcribed: 05/19/181058 Business Support Administrator: Aydin Carroll DO Signed BASIC METABOLIC Collected: 05/19/2018 Status: F Source: [facility]STOP[facility] PROFILE (BMP) 7:46 AM [facility] REPOSITORY TYPE CODE TESTS RESULT OUT OF RANGE REFERENCE UNITS LAB L501.0100 74-106 mg/dL High GLU 241 Result Comment: Glucose result greater than or equal to 200 mg/dL suggests DIABETES MELLITUS per A.D.A. criteria. Please note revised GLUCOSE reference range effective 2017. LAB L501.1000 7-18 mg/dL High BUN 83 LAB L501.1100 0.55-1.02 mg/dL High CREAT,SERUM 3.23 Result Comment: The validity of the calculated GFR AND GFRAA in patients over 70 years has not been determined. Clinical correlation is essential. LAB L501.1110 >60 mL/min Low EST GFR 15 Result Comment: Non- GFR Calc LAB L501.1115 >60 mL/min Low EST GFR - AA 18 Result Comment: GFR Calc LAB L501.1300 10-20 RATIO High BUN/CRE 25.7 LAB L501.2200 8.5-10.1 mg/dL Low CA 8.2 LAB L501.5300 136-145 mmol/L NA Normal 140 LAB L501.5600 3.5-5.1 mmol/L K Normal 4.6 LAB L501.5900 98-107 mmol/L CL Normal 102 LAB L501.6100 21.0-32.0 mmol/L Normal CO2 28.0 LAB L501.6200 5-15 Normal GAP 10 Performed By: #### L500.2500 #### [facility] [address] [place], [place], [address] PULMONARY VISIT REPORT Observed: 05/14/2018 Status: F Source: [facility] 8:44 AM [facility] REPOSITORY [facility] [address] [place], [place] [address] OFFICE VISIT Date of Service: 05/13/18 MR#: [id number] Acct: [id number] Name: MICHAEL GARCIA Rep #: [id number] : 1945 Provider: Josi Hickman Age/Sex: 72/F Location: [facility] Status: Signed Assessment AND Plan 1. Acute on chronic respiratory failure with hypoxia and hypercapnia J96.21; J96.22 Plan The patient is using and benefiting from oxygen. Continue to utilize to maintain a saturation of 89-92%. Walking oximetry to determine if patient still requires supplemental oxygen. Follow-up in 3 months. Orders Orders: 2. Pulmonary hypertension I27.20 Plan Continue supportive measures, patient is not interested in compliance with Pap therapy. Encourage supplemental oxygen if necessary. Plan to evaluate with a pulmonary stress test. Follow-up with Dr. Valencia in 3 months. 3. INES (obstructive sleep apnea) G47.33 Plan Deteriorated. Patient reports that she cannot tolerate Pap therapy and is not willing to continue to attempt acclamation. Plan Detail Follow Up 3 Months (BWA) HPI HPI Comments Details: This patient presents to the office today to follow- up on her COPD, and hypercapnic respiratory. She is in a wheelchair, currently wearing nasal cannula oxygen and accompanied by her . She reports that since her last office visit she has not been seen in the ED or urgent care for respiratory illnesses. She has not required any antibiotics or prednisone for breathing problems. She is not currently on any maintenance inhalers. She is compliant with 2 L of nasal cannula oxygen at all times. She would like to know if the supplemental oxygen is still necessary. Currently she complains of shortness of breath on exertion only, denies any shortness of breath at rest or with conversation. She reports that her shortness of breath has not worsened, and believes that it possibly has actually improved. She denies any cough, sputum production or hemoptysis. She denies any wheezing, chest tightness, chest pain or palpitations. She reports that her lower extremity edema has improved. She denies any fever, chills or body aches. See complete review of systems. Complaints report for the past 30 days shows 37% compliance, average use is approximately 2 hours. Current settings are 15/10 cm of water and current AHI is 3.1 events per hour. Leaks do appear to be a consistent issue. Pulmonary function test completed on April 21, 2018 is interpreted as showing a reversible severe mixed ventilatory defect with asymmetric reduction in diffusing capacity. It does note that there has been worsening in the patient's DLCO since the PFTs were obtained last in 2017. FVC 46% predicted, FEV1 41% of predicted, FEV1/FVC 68% of predicted, TLC 52% predicted, RV 56% of predicted and DLCO 26% of predicted. Intake Vital Signs05/13/18 Height 5 ft 5 in 05/13/18 Weight: 209 lb 05/13/18 Body Mass Index (BMI) 34.7 05/13/18 Blood Pressure 137/54 Intake Visit Reasons: f/u after breathing test DME Vendor: Moshe Accompanied by: Allergies No Known Allergies Allergy (Verified 04/28/18 12:42) Medications Acetaminophen [Tylenol 8 Hour] 650 mg PO Q6H PRN 03/01/18 [History Confirmed 04/28/18] Aspirin 325 mg PO DAILY@0800 03/01/18 [History Confirmed 04/28/18] Atorvastatin Calcium 40 mg PO QHS 03/01/18 [History Confirmed 04/28/18] Clonidine HCl 0.1 mg PO TID 03/01/18 [History Confirmed 04/28/18] Ergocalciferol [Vitamin D] 1 cap PO QMONTH 03/01/18 [History Confirmed 04/28/18] Insulin Aspart [Novolog Flexpen] See Protocol 03/01/18 [History Confirmed 04/28/18] Insulin Glargine [Lantus SoloStar Pen] 39 units SQ BID 03/01/18 [History Confirmed 04/28/18] Hydrocodone Bitart/Apap 5-325 [Hitchins 5MG-325MG] 1 tab PO Q6H PRN PRN 2 Days #5 tab 04/02/18 [Rx Confirmed 04/28/18] furosemide 40 mg tablet 40 mg PO .COMPLEX 04/06/18 [History Confirmed 04/28/18] pantoprazole 40 mg tablet,delayed release 40 mg PO QDAY 04/06/18 [History Confirmed 04/28/18] amiodarone 200 mg tablet 200 mg PO QDAY 04/28/18 [History Confirmed 04/28/18] PFSH Medical History Chronic renal insufficiency, stage V (Chronic) Rheumatic mitral insufficiency (Chronic) HTN (hypertension) (Chronic) 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) Morbid obesity (Chronic) Obstructive sleep apnea (Chronic) Type 2 diabetes mellitus (Chronic) History of cerebral hemorrhage (Chronic) Anemia (Chronic) Aortic stenosis, mild (Chronic) Mitral stenosis (Chronic) Stroke (Chronic) Hyperlipidemia (Chronic) Vitamin D deficiency (Chronic) Neuropathic pain (Chronic) Presence of surgically created arteriovenous shunt for hemodialysis (Acute 03/2018) Aortic stenosis (Chronic) Bradycardia (Chronic) Cerebral hemorrhage (Chronic) Depression (Chronic) Dyspnea (Chronic) History of Coumadin therapy (Chronic) Left atrial enlargement (Chronic) Legally blind (Chronic) Lung nodule (Chronic) Palpitations (Chronic) Rheumatic mitral stenosis (Chronic) Wheezing (Chronic) Surgical History S/P craniotomy (Chronic) S/P Achilles tendon repair (Acute) S/P carpal tunnel release (Acute) S/P dialysis catheter insertion (Acute) S/P laparoscopic cholecystectomy (Acute) S/P rotator cuff repair (Acute) S/P tonsillectomy (Acute) Family History Mother Cancer Diabetes Kidney disease Father Heart disease Diabetes Kidney disease Social History Smoking Status: Never smoker second hand exposure: No alcohol intake: never substance use type: does not use caffeine: Yes Type: coffee what type of physical activity do you participate in: none Review of Systems Const CONSTITUTIONAL: Negative anorexia, body ache, chills, daytime sleepiness, fever(s), night sweats, oral thrush, stops breathing during sleep, weight loss, sleeping in chair, fatigue, weight loss, weight gain, frequent colds, seasonal allergies, other, headache(s) or orthopnea EETM Ear Nose Throat Mouth: Positive hearing normal; negative hard of hearing, hoarseness, dry mouth in morning, change in vision, itchy eyes, eye pain, swallowing Difficulty, ear pain, nose bleed, headache(s), mouth pain, nasal congestion, nasal discharge, post nasal drip, sinus pain, sinus pressure, sore throat or other Cardio Cardiovascular: Negative chest pain, chest pain at rest, chest pain with activity, irregular heart rhythm, edema, shortness of breath when lying down, palpitations, murmur or other Resp Respiratory: Positive as per HPI; negative shortness of breath, pain with cough, wheezing, chest congestion, cough, chest tightness, pain on inspiration, inhalers, increase use of rescue inhalers, snoring, apnea or other Gastro Gastrointestional: Negative bloody stools, change in appetite, difficulty swallowing, reflux, hematemesis, melena stool, loose stool, constipation or other Genitourinary: Negative blood in urine, nocturia, pain with urination or other Musc Musculoskeletal: Negative body pain, back pain, neck pain or other Skin/Breast Skin/Breast: Negative dry skin, itching, rash, unusual bruising, breast lump or other Neuro Neurological: Negative restless legs, confusion, weakness or other Psych Psychocological: Negative abnormal sleep pattern, anxiety, thoughts of hurting self/others, hopelessness or other Lymph Lymphatic: Negative easy bleeding, easy bruising, swollen lymph nodes or other Exam Const Constitutional: Positive conversant, cooperative, in no acute respiratory distress, well developed, well nourished, frail appearing, wearing supplemental oxygen and obese Head Head: Positive normocephalic and atraumatic; negative cyanosis of lips/distal nose Eyes Eye: Positive clear conjunctiva; negative nystagmus or scleral abnormality Ears Ear: Positive hearing normal and external ears normal; negative hard of hearing Nose Nose: Positive external nose normal and no nasal discharge; negative epistaxis Mouth Mouth: Positive oral mucosae normal, no lesions and crowded posterior oropharynx; negative post nasal drip, malodorous breath or oral thrush present Mallampati Score: III: Mallampati Score Neck Neck: Positive normal visual inspection, full ROM and trachea midline; negative lymphadenopathy, JVD or tender Chest Wall Chest: Positive normal inspection of the chest and symmetric chest movement; negative increased A/P diameter Resp lung sounds: Positive clear to auscultation, good air exchange, normal expiratory time and normal respiratory effort; negative diminished, wheezes, rhonchi, rales, dullness to percussion or wheeze present on forced exhalation Cardio Cardiac: Positive regular rate, regular rhythm, S1 normal and S2 normal; negative murmur GI GI: Positive normal to inspection, normal bowel sounds and obese; negative distended Genitourinary: Positive deferred Musc Musculoskeletal: Positive ROM normal and in a wheelchair; negative kyphosis or scoliosis Skin Pulmonary Skin Exam: Positive intact; negative rash, lesion, ulcers, erythema, scaly or dermal atrophy Pulses Pulse: Yes pulses normal x4 extremities Extremities Extremities: Yes capillary refill normal, No clubbing, No cyanosis, Yes edema Location: lower extremity location: Bilateral pitting trace Neuro Neurologic: Yes conversant, Yes no focal neuro deficits, Yes normal concentration, Yes cooperative, Yes understands questions, No tremor, Yes normal cognition, Yes normal coordination Lymph Lymphatic: No lymphadenopathy, No tenderness, No cervical adenopathy, No axillary adenopathy Psych Appearance: Positive grossly normal, eye contact and well kempt Mental Status: Positive mental status grossly normal Mood: Positive congruent mood Affect: Positive normal affect Coding Level of Care Code Off vis,est,level 3 Diagnoses Acute on chronic respiratory failure with hypoxia and hypercapnia J96.21; J96.22 Pulmonary hypertension I27.20 INES (obstructive sleep apnea) G47.33 05/14/18 0844 <Electronically signed by Josi JENSEN> Date Josi JENSEN Cosigner Signature: Date (if applicable) CC: Mat Duffy MD BASIC METABOLIC Collected: 05/12/2018 Status: F Source: [facility] PROFILE (BMP) 6:42 AM [facility] REPOSITORY TYPE CODE TESTS RESULT OUT OF RANGE REFERENCE UNITS LAB L501.0100 74-106 mg/dL High GLU 254 Result Comment: Glucose result greater than or equal to 200 mg/dL suggests DIABETES MELLITUS per A.D.A. criteria. Please note revised GLUCOSE reference range effective 2017. LAB L501.1000 7-18 mg/dL High BUN 98 LAB L501.1100 0.55-1.02 mg/dL High CREAT,SERUM 3.55 Result Comment: The validity of the calculated GFR AND GFRAA in patients over 70 years has not been determined. Clinical correlation is essential. LAB L501.1110 >60 mL/min Low EST GFR 14 Result Comment: Non- GFR Calc LAB L501.1115 >60 mL/min Low EST GFR - AA 16 Result Comment: GFR Calc LAB L501.1300 10-20 RATIO High BUN/CRE 27.6 LAB L501.2200 8.5-10.1 mg/dL Low CA 7.6 LAB L501.5300 136-145 mmol/L NA Normal 139 LAB L501.5600 3.5-5.1 mmol/L K Normal 4.0 LAB L501.5900 98-107 mmol/L CL Normal 101 LAB L501.6100 21.0-32.0 mmol/L Normal CO2 26.0 LAB L501.6200 5-15 Normal GAP 12 Performed By: #### L500.2500 #### [facility] [address] [place], [address] BASIC METABOLIC Collected: 05/07/2018 Status: F Source: [facility] PROFILE ([facility]) 12:39 PM [facility] REPOSITORY TYPE CODE TESTS RESULT OUT OF RANGE REFERENCE UNITS LAB L501.0100 74-106 mg/dL High GLU 215 Result Comment: Glucose result greater than or equal to 200 mg/dL suggests DIABETES MELLITUS per A.D.A. criteria. Please note revised GLUCOSE reference range effective 2017. LAB L501.1000 7-18 mg/dL High BUN 85 LAB L501.1100 0.55-1.02 mg/dL High CREAT,SERUM 3.33 Result Comment: The validity of the calculated GFR AND GFRAA in patients over 70 years has not been determined. Clinical correlation is essential. LAB L501.1110 >60 mL/min Low EST GFR 15 Result Comment: Non- GFR Calc LAB L501.1115 >60 mL/min Low EST GFR - AA 18 Result Comment: GFR Calc LAB L501.1300 10-20 RATIO High BUN/CRE 25.5 LAB L501.2200 8.5-10.1 mg/dL Low CA 7.7 LAB L501.5300 136-145 mmol/L NA Normal 140 LAB L501.5600 3.5-5.1 mmol/L K Normal 4.6 LAB L501.5900 98-107 mmol/L CL Normal 105 LAB L501.6100 21.0-32.0 mmol/L Normal CO2 27.0 LAB L501.6200 5-15 Normal GAP 8 Performed By: #### L500.2500 #### [facility] [address] [place], [address] SURGERY VISIT REPORT Observed: 04/28/2018 Status: F Source: [place] 1:35 PM [facility] REPOSITORY [facility] [address] [place] [address] OFFICE VISIT Date of Service: 04/28/18 MR#: [id number] Acct: [id number] Name: MICHAEL GARCIA Rep #: [id number] : 1945 Provider: Evangelina Hendricks PA-C Age/Sex: 72/F Location: [facility] Status: Signed Intake Intake Visit Reasons: Fistula Creation 04/02 Chief Complaint: post fistula placement Waste Collector Required: No Is patient in pain?: No Allergies No Known Allergies Allergy (Verified 04/28/18 12:42) Medications Acetaminophen [Tylenol 8 Hour] 650 mg PO Q6H PRN 03/01/18 [History Confirmed 04/28/18] Aspirin 325 mg PO DAILY@0800 03/01/18 [History Confirmed 04/28/18] Atorvastatin Calcium 40 mg PO QHS 03/01/18 [History Confirmed 04/28/18] Clonidine HCl 0.1 mg PO TID 03/01/18 [History Confirmed 04/28/18] Ergocalciferol [Vitamin D] 1 cap PO QMONTH 03/01/18 [History Confirmed 04/28/18] Insulin Aspart [Novolog Flexpen] See Protocol 03/01/18 [History Confirmed 04/28/18] Insulin Glargine [Lantus SoloStar Pen] 39 units SQ BID 03/01/18 [History Confirmed 04/28/18] Hydrocodone Bitart/Apap 5-325 [Hitchins 5MG-325MG] 1 tab PO Q6H PRN PRN 2 Days #5 tab 04/02/18 [Rx Confirmed 04/28/18] furosemide 40 mg tablet 40 mg PO .COMPLEX 04/06/18 [History Confirmed 04/28/18] pantoprazole 40 mg tablet,delayed release 40 mg PO QDAY 04/06/18 [History Confirmed 04/28/18] amiodarone 200 mg tablet 200 mg PO QDAY 04/28/18 [History Confirmed 04/28/18] [facility] Medical History Chronic renal insufficiency, stage V (Chronic) Rheumatic mitral insufficiency (Chronic) HTN (hypertension) (Chronic) 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) Morbid obesity (Chronic) Obstructive sleep apnea (Chronic) Type 2 diabetes mellitus (Chronic) History of cerebral hemorrhage (Chronic) Anemia (Chronic) Aortic stenosis, mild (Chronic) Mitral stenosis (Chronic) Stroke (Chronic) Hyperlipidemia (Chronic) Vitamin D deficiency (Chronic) Neuropathic pain (Chronic) Presence of surgically created arteriovenous shunt for hemodialysis (Acute 03/2018) Aortic stenosis (Chronic) Bradycardia (Chronic) Cerebral hemorrhage (Chronic) Depression (Chronic) Dyspnea (Chronic) History of Coumadin therapy (Chronic) Left atrial enlargement (Chronic) Legally blind (Chronic) Lung nodule (Chronic) Palpitations (Chronic) Rheumatic mitral stenosis (Chronic) Wheezing (Chronic) Surgical History S/P craniotomy (Chronic) S/P Achilles tendon repair (Acute) S/P carpal tunnel release (Acute) S/P dialysis catheter insertion (Acute) S/P laparoscopic cholecystectomy (Acute) S/P rotator cuff repair (Acute) S/P tonsillectomy (Acute) Family History Mother Cancer Diabetes Kidney disease Father Heart disease Diabetes Kidney disease Social History Smoking Status: Former smoker HPI HPI HPI: MICHAEL GARCIA, is a 72 F I am following for chronic renal failure. Dr. Angeles performed a transposition left forearm cephalic vein to radial artery arteriovenous fistula creation on 04/02/18. Patient tolerated the procedure well. Patient notes minimal amount of discomfort. She denies numbness/tingling of the left hand or fingers. She is currently on dialysis via chest catheters. Patient returns for a follow-up visit. Patient notes she is not on dialysis as of Friday due to her renal function improving. She continues to have chest catheters. Dr. Jenkins is her child support agent. She continues to perform hand exercises. She denies incisional pain, numbness and tingling. Exam Extrem Other: Left forearm AV fistula- nicely healed incision. good pulse, bruit and thrill. Assessment AND Plan Problems 1. Chronic renal insufficiency, stage V N18.5 Plan - Continue to perform hand exercise - Follow-up with Dr. Angeles in 3 weeks Coding Level of Care Code Global Post Op Diagnoses Chronic renal insufficiency, stage V N18.5 04/28/18 1335 <Electronically signed by Evangelina Hendricks PA-C> Date Evangelina Hendricks PA-C Cosigner Signature: Date (if applicable) CC: PULMONARY FUNCTION Observed: 04/21/2018 Status: F Source: [facility] TEST 2:02 PM [facility] [facility] Pulmonary Services/Neurology [address] [place] [address] MR#: [id number] Acct: [id number] Name: MICHAEL GARCIA Rose Rep #: [id number] : 1945 72 From: Aydin Carroll DO Referring Dr: Josi Hickman PROFESSIONAL ARCHITECT Status: REG CLI Ordering Dr: Date: Location: [facility] Sex: F C INTRODUCTION: The patient is a 72-year-old female that presents for pulmonary function testing secondary to a diagnosis of COPD. Respiratory therapy reports good patient effort. Bronchodilators were used during testing. INTERPRETATION: Forced expiration spirometry demonstrates the presence of a severe large airways obstructive ventilatory defect. There is no significant response to aerosolized bronchodilators. Spirograms are of fair quality and do not plateau indicating slow emptying of the lungs. Body plethysmography was performed and reveals a decreased TLC to 2.62 L, 52% of predicted, indicative of a severe restrictive ventilatory impairment. The remainder of the lung volumes are symmetrically reduced. Diffusing capacity by single breath CO is severely reduced at 26% of predicted. There is been improvement in the patient's FEV1 since PFTs were last obtained in June 2017. However, the patient's diffusing capacity has decreased by 26%. IMPRESSION: These pulmonary function studies demonstrate the presence of an irreversible severe mixed ventilatory defect with symmetric reduction in diffusing capacity. There is been worsening of the patient's DLCO since PFTs were last obtained in 2016. 04/21/18 1402 <Electronically signed by Aydin Carroll DO> Date Aydin Carroll DO CC: Josi Hickman; Mat Duffy MD Date Dictated: 04/21/18 135 Date Transcribed: 04/21/181356 Business Support Administrator: IRVING Signed CARDIOLOGY VISIT Observed: 04/13/2018 Status: F Source: [facility] REPORT 10:22 AM [facility] [facility] [address] [place] [address]. [address] [place] [address] OFFICE VISIT Date of Service: 04/07/18 MR#: [id number] Acct: [id number] Name: MICHAEL GARCIA Rep #: [id number] : 1945 Provider: Darien Mcclendon MD Age/Sex: 72/F Location: [facility] Status: Signed [facility] Details: MICHAEL GARCIA, is a 72 F who presents to the office today for cardiovascular follow up. She has a history of paroxysmal atrial fibrillation, hypertension, scleroderma, diabetes. She was last seen in our office in February 2016. 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 Her anticoagulants were discontinued at that time. Since that time she has been hospitalized multiple times for pneumonia, acute respiratory failure, acute on chronic diastolic heart failure. During a hospital stay in November 2017 she was started on amiodarone for her paroxysmal atrial fibrillation this has since been discontinued. At that time she was also started on dialysis. At this current time she states that she is doing okay. She is on continuous home oxygen. She states that she does not have any chest discomfort. She does have shortness of breath but does not feel that it is any worse than previous. She does not have any lightheadedness or dizziness. She is unaware of her atrial fibrillation. She does not have any syncopal episodes. She does not have any lower extremity edema Intake Vital Signs04/07/18 Height 5 ft 5 in Intake Visit Reasons: pt req hosp f/up (DC 03-03) - r/s from DT Waste Collector Required: No Is patient in pain?: No Allergies No Known Allergies Allergy (Verified 04/07/18 12:01) Medications Acetaminophen [Tylenol 8 Hour] 650 mg PO Q6H PRN 03/01/18 [History Confirmed 04/07/18] Aspirin 325 mg PO DAILY@0800 03/01/18 [History Confirmed 04/07/18] Atorvastatin Calcium 40 mg PO QHS 03/01/18 [History Confirmed 04/07/18] Clonidine HCl 0.1 mg PO TID 03/01/18 [History Confirmed 04/07/18] Ergocalciferol [Vitamin D] 1 cap PO QMONTH 03/01/18 [History Confirmed 04/07/18] Insulin Aspart [Novolog Flexpen] See Protocol 03/01/18 [History Confirmed 04/07/18] Insulin Glargine [Lantus SoloStar Pen] 39 units SQ BID 03/01/18 [History Confirmed 04/07/18] Metoprolol Succinate 25 mg PO DAILY 03/01/18 [History Confirmed 04/07/18] Nystatin Powder [Mycostatin Powder] 1 applic TOPICAL BID 03/01/18 [History Confirmed 04/07/18] Hydrocodone Bitart/Apap 5-325 [Hitchins 5MG-325MG] 1 tab PO Q6H PRN PRN 2 Days #5 tab 04/02/18 [Rx Confirmed 04/07/18] furosemide 40 mg tablet 40 mg PO .COMPLEX 04/06/18 [History Confirmed 04/07/18] pantoprazole 40 mg tablet,delayed release 40 mg PO QDAY 04/06/18 [History Confirmed 04/07/18] Ejection fraction %: 65 to 70 PFSH Medical History Chronic renal insufficiency, stage V (Chronic) Rheumatic mitral insufficiency (Chronic) HTN (hypertension) (Chronic) 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) Morbid obesity (Chronic) Obstructive sleep apnea (Chronic) Type 2 diabetes mellitus (Chronic) History of cerebral hemorrhage (Chronic) Anemia (Chronic) Aortic stenosis, mild (Chronic) Mitral stenosis (Chronic) Stroke (Chronic) Hyperlipidemia (Chronic) Vitamin D deficiency (Chronic) Neuropathic pain (Chronic) Presence of surgically created arteriovenous shunt for hemodialysis (Acute 03/2018) Aortic stenosis (Chronic) Bradycardia (Chronic) Cerebral hemorrhage (Chronic) Depression (Chronic) Dyspnea (Chronic) History of Coumadin therapy (Chronic) Left atrial enlargement (Chronic) Legally blind (Chronic) Lung nodule (Chronic) Palpitations (Chronic) Rheumatic mitral stenosis (Chronic) Wheezing (Chronic) Surgical History S/P craniotomy (Chronic) S/P Achilles tendon repair (Acute) S/P carpal tunnel release (Acute) S/P dialysis catheter insertion (Acute) S/P laparoscopic cholecystectomy (Acute) S/P rotator cuff repair (Acute) S/P tonsillectomy (Acute) Family History Mother Cancer Diabetes Kidney disease Father Heart disease Diabetes Kidney disease Social History Smoking Status: Former smoker ROS Const Const: Negative for fatigue, weakness, night sweats, excessive sweating, frequent falls, headache(s) or daytime sleepiness Eyes Eyes: Negative for loss of peripheral vision, transient loss of vision, blind spots, double vision or blurry vision ENT ENT: Negative for headache(s), dizziness, balance problems, Nosebleed/epistaxis, tongue swelling or lip swelling Cardio Chest Pain: No Palpitations: No Edema: None Muscle aches with walking: None Resp Respiratory: Negative for SOB at rest, SOB orthopnea\SOB lying down, Cough, paroxysmal nocturnal dyspnea or SOB with activity GI GI: Negative nausea, vomiting, heartburn, black,tarry stools or bright, red blood in stools : Negative for hematuria Musc Musc: Negative for balance problems, muscle aches/ myalgia, muscle weakness or joint pain Skin Skin: Negative non-healing lesions, unusual bruising or rash Neuro Neuro: Negative for weakness, frequent falls, headache(s), double vision, dizziness, lightheadedness, orthostatic symptoms, blurry vision or lack of coordination Julio Hematologic/Lymphatic: Negative for easy bruising or easy bleeding Endo Endo: Negative for fatigue, excessive sweating, cold intolerance, heat intolerance, increased thirst/drinking or hair loss Psych Psych: Negative for anxiety or depression Allergy Allergy/Immunology: Negative for throat swelling, Negative for tongue swelling, Negative for hives, Negative for rash, Negative for lip swelling Cardiology Exam Const Appearance: cooperative, no acute distress, well developed and frail appearing Orientation: alert, awake and oriented x3 On chronic O2 Head Head: normocephalic and atraumatic Mouth: moist mucous membranes Eyes General: appearance normal, both eyes and all related structures Conjunctivae: conjunctivae normal Pupils: PERRL EOM: EOM intact bilaterally Neck Neck: normal visual inspection and no lymphadenopathy Carotids: Negative bruit Neck Mass: Negative Neck mass Chest Chest inspection: normal inspection of the chest, symmetric chest movement and other (Dialysis catheter to right upper chest) Auscultation: Bilateral: Diminished Lung Sounds Cardio Palpation: normal PMI Rate: regular rate Rhythm: regular rhythm Heart sounds: S1 normal and S2 normal; negative rub, gallop or murmur GI GI: normal to inspection, soft, no hepatosplenomegaly and bowel sounds present; negative tender Neuro General: alert, awake, oriented x3, CN's II-XI intact bilaterally and moves all extremities Extremities Pulses: Diminished: Right Posterior Tibial Pulse, Left Posterior Tibial Pulse, Right Radial Pulse Upper Extremity: AV fistula to left forearm Lower Extremity Edema: None: Bilateral Psych Psychological: normal affect Supplemental Info Echocardiogram in 11/2017 demonstrated The study was technically difficult. Contrast injection was performed. Left ventricular systolic function is normal. The estimated ejection fraction is 65 %. The left atrium is moderately enlarged. There is moderate to severe mitral annular calcification. Extension of the mitral annular calcification onto the mitral valve leaflets. Mild focal mitral valve calcification of the anterior leaflet. Mild (1+) mitral valve insufficiency. Mild tricuspid valve insufficiency. Mild aortic stenosis. Trivial pulmonic valve insufficiency. Right ventricular systolic pressure estimated to be 51 mmHg. Transmitral diastolic flow velocities suggest diastolic dysfunction (pseudonormal pattern). Assessment AND Plan Problems 1. Paroxysmal A-fib I48.0 2. Essential hypertension I10 3. CREST variant of scleroderma M34.1 4. Aortic stenosis, mild I35.0 5. Pure hypercholesterolemia E78.00; E78.0 6. Mitral valve stenosis, unspecified etiology I05.0 mild Plan 1. Paroxysmal atrial fibrillation: Patient is in sinus rhythm. She is not anticoagulated due to her intracranial bleed. We will continue to monitor this closely. She does remain on aspirin. 2. Mitral stenosis, stable, will continue to monitor by history, exam and echocardiograms as deemed appropriate. 3. Aortic stenosis: Stable, will continue to monitor by history, exam and echocardiograms as deemed appropriate. 4. Hypertension: Blood pressure is adequately controlled on current medications. Will not make any adjustments at this time. 5. Hyperlipidemia: Patient is due to have her lipids checked in the near future. Will adjust accordingly. 6. End-stage renal disease: Patient does receive dialysis 3 days a week. She does follow with nephrology. Plan Detail Additional Comments The above patient was discussed with Dr. Mcclendon, he agrees with plan of care. Thank you for allowing us to participate in patient's plan of care, if you have any questions please do not hesitate to call. This note was generated using a voice recognition system and there may be incorrect words, spelling or punctuation errors that were not noted when reviewing the office note prior to saving. 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) Coding Level of Care Code Off vis,est,level 3 Diagnoses Paroxysmal A-fib I48.0 Essential hypertension I10 Hypertension type: essential hypertension CREST variant of scleroderma M34.1 Aortic stenosis, mild I35.0 Pure hypercholesterolemia E78.00; E78.0 Hyperlipidemia type: pure hypercholesterolemia Mitral valve stenosis, unspecified etiology I05.0 Cardiac valve disease etiology: etiology unspecified Coding Level of Care Code Off vis,est,level 3 Diagnoses Paroxysmal A-fib I48.0 Essential hypertension I10 Hypertension type: essential hypertension CREST variant of scleroderma M34.1 Aortic stenosis, mild I35.0 Pure hypercholesterolemia E78.00; E78.0 Hyperlipidemia type: pure hypercholesterolemia Mitral valve stenosis, unspecified etiology I05.0 Cardiac valve disease etiology: etiology unspecified 04/08/18 1023 <Electronically signed by Darien Mcclendon MD> Date Darien Mcclendon MD 04/13/18 1022<Electronically signed by Norbetr SHAFFER> Cosigner Signature: Date (if applicable) Norbert Bond CC: Mat Duffy MD SURGERY VISIT REPORT Observed: 04/07/2018 Status: F Source: [facility] 4:04 PM [facility] [place] [facility] [address] [place] [address] OFFICE VISIT Date of Service: 04/07/18 MR#: [id number] Acct: [id number] Name: MICHAEL GARCIA Rep #: [id number] : 1945 Provider: Evangelina Hendricks PA-C Age/Sex: 72/F Location: [facility] Status: Signed Intake Intake Visit Reasons: Fistula Creation 04/02 Chief Complaint: post fistula placement Waste Collector Required: No Is patient in pain?: No Allergies No Known Allergies Allergy (Verified 04/07/18 12:01) Medications Acetaminophen [Tylenol 8 Hour] 650 mg PO Q6H PRN 03/01/18 [History Confirmed 04/07/18] Aspirin 325 mg PO DAILY@0800 03/01/18 [History Confirmed 04/07/18] Atorvastatin Calcium 40 mg PO QHS 03/01/18 [History Confirmed 04/07/18] Clonidine HCl 0.1 mg PO TID 03/01/18 [History Confirmed 04/07/18] Ergocalciferol [Vitamin D] 1 cap PO QMONTH 03/01/18 [History Confirmed 04/07/18] Insulin Aspart [Novolog Flexpen] See Protocol 03/01/18 [History Confirmed 04/07/18] Insulin Glargine [Lantus SoloStar Pen] 39 units SQ BID 03/01/18 [History Confirmed 04/07/18] Metoprolol Succinate 25 mg PO DAILY 03/01/18 [History Confirmed 04/07/18] Nystatin Powder [Mycostatin Powder] 1 applic TOPICAL BID 03/01/18 [History Confirmed 04/07/18] Hydrocodone Bitart/Apap 5-325 [Hitchins 5MG-325MG] 1 tab PO Q6H PRN PRN 2 Days #5 tab 04/02/18 [Rx Confirmed 04/07/18] furosemide 40 mg tablet 40 mg PO .COMPLEX 04/06/18 [History Confirmed 04/07/18] pantoprazole 40 mg tablet,delayed release 40 mg PO QDAY 04/06/18 [History Confirmed 04/07/18] Is last menstrual period known: No Post menopausal: Yes Patient : No PFSH Medical History Chronic renal insufficiency, stage V (Chronic) Rheumatic mitral insufficiency (Chronic) HTN (hypertension) (Chronic) 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) Morbid obesity (Chronic) Obstructive sleep apnea (Chronic) Type 2 diabetes mellitus (Chronic) History of cerebral hemorrhage (Chronic) Anemia (Chronic) Aortic stenosis, mild (Chronic) Mitral stenosis (Chronic) Stroke (Chronic) Hyperlipidemia (Chronic) Vitamin D deficiency (Chronic) Neuropathic pain (Chronic) Presence of surgically created arteriovenous shunt for hemodialysis (Acute 03/2018) Aortic stenosis (Chronic) Bradycardia (Chronic) Cerebral hemorrhage (Chronic) Depression (Chronic) Dyspnea (Chronic) History of Coumadin therapy (Chronic) Left atrial enlargement (Chronic) Legally blind (Chronic) Lung nodule (Chronic) Palpitations (Chronic) Rheumatic mitral stenosis (Chronic) Wheezing (Chronic) Surgical History S/P craniotomy (Chronic) S/P Achilles tendon repair (Acute) S/P carpal tunnel release (Acute) S/P dialysis catheter insertion (Acute) S/P laparoscopic cholecystectomy (Acute) S/P rotator cuff repair (Acute) S/P tonsillectomy (Acute) Family History Mother Cancer Diabetes Kidney disease Father Heart disease Diabetes Kidney disease Social History Smoking Status: Former smoker HPI HPI HPI: MICHAEL GARCIA, is a 72 F I am following for chronic renal failure. Dr. Angeles performed a transposition left forearm cephalic vein to radial artery arteriovenous fistula creation on 04/02/18. Patient tolerated the procedure well. Patient notes minimal amount of discomfort. She denies numbness/tingling of the left hand or fingers. She is currently on dialysis via chest catheters. Exam Extrem Other: Left forearm AV fistula- incision c/d/i. No erythema or infection noted. Steri-strips intact. Excellent pulse, bruit and thrill. Assessment AND Plan Problems 1. Chronic renal insufficiency, stage V N18.5 Plan - Continue hand exercises - Follow-up in 3 weeks Coding Level of Care Code Global Post Op Diagnoses Chronic renal insufficiency, stage V N18.5 04/07/18 1604 <Electronically signed by Evangelina Hendricks PA-C> Date Evangelina Hendricks PA-C Cosigner Signature: Date (if applicable) CC: 12 LEAD ELECTROCARDIOGRAM Observed: 04/03/2018 Status: F Source: [facility] 10:09 AM [facility] Cardiovascular Services [address] [place] [address] 12 Lead EKG 04/02/18 0636 MR#: [id number] Acct: [id number] Name: MICHAEL GARCIA Rep #: [id number] : 1945 72 From: Darien Mcclendon MD Attending Dr: Anoop Angeles MD Status: [facility] Ordering Dr: Anoop Angeles MD Date: 04/02/18 [place] [facility] Sex: F C Admitted: Test Reason : PRE OP Blood Pressure : / mmHG Vent. Rate : 050 BPM Atrial Rate : 050 BPM P-R Int : 164 ms QRS Dur : 096 ms QT Int : 518 ms P-R-T Axes : 030 -32 038 degrees QTc Int : 472 ms Sinus bradycardia Left axis deviation Prolonged QT Abnormal ECG When compared with ECG of 01-MAR-2018 14:40, Inverted T waves have replaced nonspecific T wave abnormality in Anterior leads Confirmed by DARIEN MCCLENDON MD ([id number]), food expeditor OSIEL HINES ([id number]) on 04/03/2018 10:08:33 AM Referred By: Anoop Angeles Confirmed By:DARIEN MCCLENDON MD 04/03/18 1008 Date Darien Mcclendon MD CC: Anoop Angeles MD; Mat Duffy MD Signed DISCHARGE INSTRUCTION Observed: 04/02/2018 Status: F Source: [facility] 12:02 PM [facility] Medical Records Department [address] [place] [address] Instructions for Home/Discharge Instructions 04/02/18 0851 MR#: [id number] Acct: [id number] Name: MICHAEL GARCIA Rep #: [id number] : 1945 72 From: Anoop Angeles MD PCP: Mat Duffy MD Status: REG SDC Discharge Diet: Renal Diet Discharge Activity: May Not Drive - for 2-3 days or while taking narcotic pain medications., May Shower, May Take a Tub Bath - in 5 days. Lifting Restrictions: 5 pounds Keep extremity elevated above heart level: - - Keep arm elevated above the heart level for 3 days. Additional Activity Instructions:: Exercise hand vigorously with a stress ball. Call your doctor if your incision/area has: Continuous Slow Oozing, Sudden Increased Bleeding - apply pressure and call your doctor., Increased Pain/ Swelling, Increased Redness, Foul Smelling Discharge Call your doctor if you observe: Fever of 101 or Higher Suture Line Care: Avoid Pulling/Pushing, Avoid Pinching/Bending Cleanse incision/area with: Keep Dressing Clean AND Dry Additional Dressing/Incision Instructions:: You may elevate your left arm to limit swelling and for comfort. Exercise your left hand with a stress ball as often as feasible. Please keep the incision clean and dry for 3 days. Allergies/Adverse Reactions: Allergies No Known Allergies Allergy (Verified 03/05/18 07:41) Medications to take at Discharge Acetaminophen [Tylenol 8 Hour] 650 mg PO Q6H PRN 03/01/18 Aspirin 325 mg PO DAILY@0800 03/01/18 Atorvastatin Calcium 40 mg PO QHS 03/01/18 Clonidine HCl 0.1 mg PO TID 03/01/18 Ergocalciferol [Vitamin D] 1 cap PO QMONTH 03/01/18 Furosemide 60 mg PO DAILY 03/01/18 Insulin Aspart [Novolog Flexpen] See Protocol 03/01/18 Insulin Glargine [Lantus SoloStar Pen] 39 units SQ BID 03/01/18 Metoprolol Succinate 25 mg PO DAILY 03/01/18 Nystatin Powder [Mycostatin Powder] 1 applic TOPICAL BID 03/01/18 Pantoprazole Sodium 40 mg PO DAILY 03/01/18 Sertraline HCl [Zoloft] 25 mg PO DAILY 03/01/18 Hydrocodone Bitart/Apap 5-325 [Hitchins 5MG-325MG] 1 tablet PO Q6H PRN PRN 2 Days #5 tablet 04/02/18 The following prescriptions were given: Hydrocodone Bitart/Apap 5-325 [Hitchins 5MG-325MG] 1 tablet PO Q6H PRN PRN 2 Days #5 tablet PRN Reason: Pain Primary Care Physician: Mat Duffy MD [Primary Care Provider] - Please Follow Up With: Anoop Angeles MD - [phone] When: Call to make an appointment for follow up in 10 days. 04/02/18 1202 <Electronically signed by Anoop Angeles MD> Date Anoop Angeles MD CC: Mat Duffy MD OPERATIVE REPORT Observed: 04/02/2018 Status: F Source: [facility] 10:31 AM [facility] Medical Records Department [address] [place] [address] Operative Report 04/02/18 1027 MR#: [id number] Acct: [id number] Name: MICHAEL GARCIA Rep #: [id number] : 1945 72 From: Anoop Angeles MD PCP: Mat Duffy MD Status: [facility] Location: [place] [address] Problem List (1) Chronic renal insufficiency, stage V Status: Acute Report of Operation Date of Procedure: 04/02/18 Pre-Operative Diagnosis: Stage V renal failure Post-Operative Diagnosis: Same Surgery/Procedure Performed:: Transposition left forearm cephalic vein to radial artery arteriovenous fistula creation Description of Surgical Findings:: Timeout and informed consent was obtained. 72-year-old female was taken to the operating room. She was placed on the table. The left upper extremity sterilely prepped and draped. Ultrasound mapping of the cephalic vein was performed pre- intervention. Throughout the procedure of 11 cc of 0.5% lidocaine and 15 cc of 1% lidocaine mixed 50-50 with 0.5% Marcaine was used as local anesthetic. Local was instilled. A longitudinal incision was made directly over the cephalic vein. Tedious sharp and blunt dissection was used to harvest the cephalic vein. Side branches were secured with 4-0 Vicryl ligatures and hemoclips were indicated. Dissection performed from the distal third of the forearm to the antecubital space. More distally the vein became diminutive. Having completely dissected the vein free it was ink marked and then irrigated demonstrating adequate diameter. Sharp and blunt dissection was used to identify the radial artery this was rather deeply placed there was significant amount of fibrofatty tissue however with tedious dissection was able to gently elevated. Then the patient had the vein tunneled from the antecubital space medially to the incision down to the radial artery. The patient then received 9000 units of heparin intravenously. After adequate circling time peripheral vascular clamps were placed on the radial artery and 11 blade was used to make an arteriotomy which was extended with Winn scissors. The vein had been spatulated at a branch point to allow for slightly larger anastomosis. A end-to-side anastomosis created with running 7-0 Prolene. Prior to completion there is good antegrade and retrograde flow. The anastomosis was completed and there appeared to be a very nice cobra head with good positional lie. Doppler signal demonstrated excellent flow. Patient received 20 mg of protamine intravenously. The wound was closed in layers with a deep layer of interrupted 3-0 Vicryl and then a running septic or 4-0 Monocryl. Steri-Strips Telfa tape soft roll and Rustam wrap applied. Sponge and instrument and needle counts were reported to the surgeon to be correct. Blood loss was minimal. She tolerated the procedure well was taken to the recovery area in satisfactory condition. Hand was viable to completion. No apparent complication. Specimens none. Drains none. Blood loss minimal. Anoop Angeles M.D., F.A.C.S. Type of Anesthesia:: Local MAC Anesthesiologist: Ghulam Monreal 04/02/18 1031 <Electronically signed by Anoop Angeles MD> Date Anoop Angeles MD CC: Anoop Angeles MD; Mat Duffy MD Signed BEDSIDE GLUCOSE Collected: 04/02/2018 Status: F Source: [place] 6:55 AM [facility] REPOSITORY TYPE CODE TESTS RESULT OUT OF REFERENCE UNITS RANGE LAB L501.080 70-110 mg/dL High BEDSIDE GLU 210 Result Comment: MANAGEMENT OF PATIENT CARE PER NURSING PROTOCOL Performed By: #### L501.080 #### [facility] Point of Care [address] [place], [place] [address] BASIC METABOLIC Collected: 04/02/2018 Status: F Source: [place] PROFILE (BMP) 6:50 AM [facility] REPOSITORY TYPE CODE TESTS RESULT OUT OF RANGE REFERENCE UNITS LAB L501.0100 74-106 mg/dL High GLU 219 Result Comment: Glucose result greater than or equal to 200 mg/dL suggests DIABETES MELLITUS per A.D.A. criteria. Please note revised GLUCOSE reference range effective 2017. LAB L501.1000 7-18 mg/dL High BUN 24 LAB L501.1100 0.55-1.02 mg/dL High CREAT,SERUM 1.94 Result Comment: The validity of the calculated GFR AND GFRAA in patients over 70 years has not been determined. Clinical correlation is essential. LAB L501.1110 >60 mL/min Low EST GFR 27 Result Comment: Non- GFR Calc LAB L501.1115 >60 mL/min Low EST GFR - AA 33 Result Comment: GFR Calc LAB L501.1255 ml/min Normal Estimated CRCL 24.28 LAB L501.1300 10-20 RATIO Normal BUN/CRE 12.4 LAB L501.2200 8.5-10 mg/dL Low .1 CA 8.2 LAB L501.5300 136-14 mmol/L Normal 5 NA 141 LAB L501.5600 3.5-5. mmol/L Normal 1 K 3.9 LAB L501.5900 98-107 mmol/L Normal CL 103 LAB L501.6100 21.0-3 mmol/L Normal 2.0 CO2 32.0 LAB L501.6200 5-15 Normal GAP 6 Performed By: #### L500.2500 #### [facility] [address], [address] CBC-COMPLETE BLOOD CNT Collected: 04/02/2018 Status: F Source: [place] NO DIFF 6:50 AM [facility] REPOSITORY TYPE CODE TESTS RESULT OUT OF RANGE REFERENCE UNITS LAB L100.1000 4.4-11.0 K/mm3 Low WBC 4.0 LAB L100.1200 4.2-5.4 M/mm3 Low RBC 3.72 LAB L100.1300 12.0-15.0 g/dl Low HGB 11.0 LAB L100.1400 37-47 % Low HCT 35.6 LAB L100.1500 81-99 fL Normal MCV 95.7 LAB L100.1600 27.0-32.0 pg Normal MCH 29.6 LAB L100.1700 32-36 g/gl Low MCHC 30.9 LAB L100.1810 11.6-14.6 % High RDW CV 15.5 LAB L100.1820 35.1-43.9 fl High RDW SD 54.4 LAB L100.1900 150-450 K/mm3 Low PLT 123 LAB L100.2000 6.2-12.0 fl Normal MPV 9.3 Performed By: #### L100.0500 #### [facility] [address] [place], [address] PROGRESS Observed: 03/05/2018 Status: COMPLETED Source: [place] 9:24 AM [facility] REPOSITORY HNO ID: [id number] Author: Mat Duffy Service: (none) Author Type: Physician Type: Progress Notes Filed: 03/05/2018 9:59 AM Note Text: Transitional Care Management Progress Note The patients TCM visit was performed within the 7 days of discharge. Patient's Date of discharge: 03/03/2018 Date of initial coordinator contact after discharge: 03/03/2018 Discharge diagnosis: Acute hypercapnic respiratory failure (Acute); Lethargy (Acute); Altered mental status, unspecified (Acute) Medication review completed Yes Mya Willams LPN Provider Documentation: In follow-up of hospitalization, Michael Garcia is a 72 year old female with the chief complaint of hospital follow up. She was admitted 03/01-03/03 for acute respiratory failure, altered mental status. This was felt to be medication related, gabapentin and baclofen. Medications were discontinued with improvement. Dialysis was continued. Amiodarone had also been discontinued prior. She was doing better. REVIEW OF SYSTEMS GENERAL: No weight loss, malaise or fevers RESPIRATORY: Negative. CARDIOVASCULAR: Negative for chest pain, leg swelling, palpitations GI: No nausea, vomiting, or diarrhea and Negative for abdominal discomfort PSYCH: Positive for sleep disturbance. Negative for anxiety, depression. NEURO: No history of headaches, syncope, paralysis, seizures or tremors. General weakness. ACTIVE PROBLEM LIST Type 2 Diabetes Mellitus With Renal Manifestations ([facility]) Essential Hypertension With Goal Blood Pressure Less Than 130/85 Hyperlipidemia Legally Blind Diabetic Peripheral Neuropathy Associated With Type 2 Diabetes Mellitus ([facility]) Primary 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 ([facility]) Ckd (Chronic Kidney Disease) Stage V Requiring Chronic Dialysis ([facility]) Hypoxemia Chronic Diastolic Chf (Congestive Heart Failure) ([facility]) Anemia in Stage 3 Chronic Kidney Disease Paroxysmal Atrial Fibrillation ([facility]) Peripheral Arterial Occlusive Disease ([facility]) Current Outpatient Prescriptions: acetaminophen (TYLENOL 8 HOUR ORAL) Take 650 mg by mouth every 6 hours as needed. nystatin (MYCOSTATIN) powder Apply 1 application to affected area twice daily. furosemide (LASIX) 40 mg tablet Take 60 mg by mouth once daily. sertraline (ZOLOFT) 25 mg tablet Take 1 tablet by mouth once daily. Depression. cloNIDine HCl (CATAPRES) 0.1 mg tablet TAKE 1 TABLET THREE TIMES DAILY aspirin, enteric coated (ECOTRIN) 325 mg EC tablet Take 325 mg by mouth daily with breakfast. FERREX 150 150 mg iron capsule Take 1 capsule by mouth once daily. pantoprazole DR (PROTONIX) 40 mg tablet Take 1 tablet by mouth once daily. LANTUS SOLOSTAR 100 unit/mL (3 mL) inpn INJECT 39 UNITS SUBCUTANEOUSLY TWICE DAILY NOVOLOG FLEXPEN 100 unit/mL inpn INJECT 4 TIMES DAILY DIRECTED. GLUCOSE LESS THAN 150 = 0 U; 150-199=2 U; 200-249=4 U; 250-299=6 U; 300-349=8 U; >350=10 U COMPOUNDED PRESCRIPTION Portable oxygen Dx: Hypoxemia. R09.02. 3 LPM via NC continuous. ergocalciferol, vitamin D2, (VITAMIN D) 50,000 unit capsule Take 1 capsule by mouth once every month. metoprolol succinate ER (TOPROL XL) 25 mg 24 hr tablet Take 1 tablet by mouth once daily. atorvastatin (LIPITOR) 40 mg tablet Take 1 tablet by mouth daily at bedtime. For cholesterol. No current facility-administered medications for this visit. BP 114/56 (BP Site: Left Arm, BP Position: Sitting, BP Cuff Size: Regular Adult) Pulse (!) 56 Temp 36.6 ?C (97.8 ?F) (Left Tympanic) Resp 18 Wt 93.4 kg (206 lb) BMI 34.28 kg/m? PHYSICAL EXAM: General Appearance: alert, oriented to person and place. On oxgyen. Eyes: dysconjugate left eye, anicteric. Neck: No jvd. Lungs: Lungs clear to auscultation. No wheezing, rhonchi, rales. Heart: RRR without murmur, gallop, or rubs. No ectopy. Bradycardic. Abdomen: Abdomen soft, non-tender. Bowel sounds normal. No masses, organomegaly. Extremities: Negative findings: No cyanosis, clubbing or edema. Neurologic: Gait normal. Reflexes normal and symmetric. Sensation grossly intact., Oriented X 2. Wheelchair bound. No distress. I have reviewed the patient?s last hospital course including diagnostic testing performed during this hospitalization, their discharge medications, and my assessment and plan with the patient and any family members present at today?s visit. ASSESSMENT/PLAN: 1. Acute on chronic respiratory failure with hypoxia and hypercapnia (HCC) - ICD9: 518.84, 786.09, 799.02, ICD10: J96.21, J96.22 (primary diagnosis) Back to baseline. Continue Oxygen. 2. Encephalopathy - ICD9: 348.30, ICD10: G93.40 Resolving. 3. Chronic diastolic CHF (congestive heart failure) (HCC) - ICD9: 428.32, 428.0, ICD10: I50.32 Controled. 4. CKD (chronic kidney disease) stage V requiring chronic dialysis (HCC) - ICD9: 585.6, V45.11, ICD10: N18.6, Z99.2 On dialysis. MD MAURICE FriasOV Observed: 03/05/2018 Status: COMPLETED Source: [place] 9:20 AM [facility] REPOSITORY Office Visit (INTMWS) MICHAEL GARCIA ([id number]) 1945 F BLD Date Time Provider Department 03/05/18 9:20 AM MAT DUFFY INTMWS During your visit today, we recorded the following information about you: Temperature Pulse Respiration Blood pressure 97.8 degrees 56/minute 18/minute 114/56 Weight 93.4 kg Mat Duffy MD 03/05/2018 9:59 AM Signed Transitional Care Management Progress Note The patients TCM visit was performed within the 7 days of discharge. Patient's Date of discharge: 03/03/2018 Date of initial coordinator contact after discharge: 03/03/2018 Discharge diagnosis: Acute hypercapnic respiratory failure (Acute); Lethargy (Acute); Altered mental status, unspecified (Acute) Medication review completed Yes Mya Willams LPN Provider Documentation: In follow-up of hospitalization, Michael Garcia is a 72 year old female with the chief complaint of hospital follow up. She was admitted 03/01-03/03 for acute respiratory failure, altered mental status. This was felt to be medication related, gabapentin and baclofen. Medications were discontinued with improvement. Dialysis was continued. Amiodarone had also been discontinued prior. She was doing better. REVIEW OF SYSTEMS GENERAL: No weight loss, malaise or fevers RESPIRATORY: Negative. CARDIOVASCULAR: Negative for chest pain, leg swelling, palpitations GI: No nausea, vomiting, or diarrhea and Negative for abdominal discomfort PSYCH: Positive for sleep disturbance. Negative for anxiety, depression. NEURO: No history of headaches, syncope, paralysis, seizures or tremors. General weakness. ACTIVE PROBLEM LIST Type 2 Diabetes Mellitus With Renal Manifestations (Hcc) Essential Hypertension With Goal Blood Pressure Less Than 130/85 Hyperlipidemia Legally Blind Diabetic Peripheral Neuropathy Associated With Type 2 Diabetes Mellitus (Hcc) Primary 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 (Hcc) Ckd (Chronic Kidney Disease) Stage V Requiring Chronic Dialysis (Hcc) Hypoxemia Chronic Diastolic Chf (Congestive Heart Failure) (Hcc) Anemia in Stage 3 Chronic Kidney Disease Paroxysmal Atrial Fibrillation (Hcc) Peripheral Arterial Occlusive Disease (Hcc) Current Outpatient Prescriptions: acetaminophen (TYLENOL 8 HOUR ORAL) Take 650 mg by mouth every 6 hours as needed. nystatin (MYCOSTATIN) powder Apply 1 application to affected area twice daily. furosemide (LASIX) 40 mg tablet Take 60 mg by mouth once daily. sertraline (ZOLOFT) 25 mg tablet Take 1 tablet by mouth once daily. Depression. cloNIDine HCl (CATAPRES) 0.1 mg tablet TAKE 1 TABLET THREE TIMES DAILY aspirin, enteric coated (ECOTRIN) 325 mg EC tablet Take 325 mg by mouth daily with breakfast. FERREX 150 150 mg iron capsule Take 1 capsule by mouth once daily. pantoprazole DR (PROTONIX) 40 mg tablet Take 1 tablet by mouth once daily. LANTUS SOLOSTAR 100 unit/mL (3 mL) inpn INJECT 39 UNITS SUBCUTANEOUSLY TWICE DAILY NOVOLOG FLEXPEN 100 unit/mL inpn INJECT 4 TIMES DAILY DIRECTED. GLUCOSE LESS THAN 150 = 0 U; 150-199=2 U; 200-249=4 U; 250-299=6 U; 300- 349=8 U; >350=10 U COMPOUNDED PRESCRIPTION Portable oxygen Dx: Hypoxemia. R09.02. 3 LPM via NC continuous. ergocalciferol, vitamin D2, (VITAMIN D) 50,000 unit capsule Take 1 capsule by mouth once every month. metoprolol succinate ER (TOPROL XL) 25 mg 24 hr tablet Take 1 tablet by mouth once daily. atorvastatin (LIPITOR) 40 mg tablet Take 1 tablet by mouth daily at bedtime. For cholesterol. No current facility-administered medications for this visit. BP 114/56 (BP Site: Left Arm, BP Position: Sitting, BP Cuff Size: Regular Adult) Pulse (!) 56 Temp 36.6 ?C (97.8 ?F) (Left Tympanic) Resp 18 Wt 93.4 kg (206 lb) BMI 34.28 kg/m? PHYSICAL EXAM: General Appearance: alert, oriented to person and place. On oxgyen. Eyes: dysconjugate left eye, anicteric. Neck: No jvd. Lungs: Lungs clear to auscultation. No wheezing, rhonchi, rales. Heart: RRR without murmur, gallop, or rubs. No ectopy. Bradycardic. Abdomen: Abdomen soft, non-tender. Bowel sounds normal. No masses, organomegaly. Extremities: Negative findings: No cyanosis, clubbing or edema. Neurologic: Gait normal. Reflexes normal and symmetric. Sensation grossly intact., Oriented X 2. Wheelchair bound. No distress. I have reviewed the patient?s last hospital course including diagnostic testing performed during this hospitalization, their discharge medications, and my assessment and plan with the patient and any family members present at today?s visit. ASSESSMENT/PLAN: 1. Acute on chronic respiratory failure with hypoxia and hypercapnia (HCC) - ICD9: 518.84, 786.09, 799.02, ICD10: J96.21, J96.22 (primary diagnosis) Back to baseline. Continue Oxygen. 2. Encephalopathy - ICD9: 348.30, ICD10: G93.40 Resolving. 3. Chronic diastolic CHF (congestive heart failure) (HCC) - ICD9: 428.32, 428.0, ICD10: I50.32 Controled. 4. CKD (chronic kidney disease) stage V requiring chronic dialysis (HCC) - ICD9: 585.6, V45.11, ICD10: N18.6, Z99.2 On dialysis. Mat Duffy MD Referring Provider: MAT DUFFY [[id number]] Allergies As of Date: 03/05/2018 (No Known Allergies) Date Reviewed: 03/05/2018 Reviewed by: Mya Willams LPN - Fully Assessed Reason for Visit: F/U 3 Month [443] TCM [Other] Cmt: Discharged from [facility] 03/03/2018 Primary Visit Diagnosis:Acute on chronic respiratory failure with hypoxia and hypercapnia (HCC) [J96.21, J96.22] Other Visit Diagnoses:Encephalopathy [G93.40] Chronic diastolic CHF (congestive heart failure) (HCC) [I50.32] CKD (chronic kidney disease) stage V requiring chronic dialysis (HCC) [N18.6, Z99.2] Prescriptions as of 03/05/2018 Sig: TYLENOL 8 HOUR ORAL Take 650 mg by mouth every 6 * NYSTATIN 100,000 UNIT/GRAM TO* Apply 1 application to affect* FUROSEMIDE 40 MG TABLET Take 60 mg by mouth once joel* SERTRALINE 25 MG TABLET Take 1 tablet by mouth once d* CLONIDINE HCL 0.1 MG TABLET TAKE 1 TABLET THREE TIMES ESEQUIEL* ASPIRIN 325 MG TABLET,DELAYED* Take 325 mg by mouth daily wi* FERREX 150 MG IRON CAPSULE Take 1 capsule by mouth once * PANTOPRAZOLE 40 MG TABLET,DEL* Take 1 tablet by mouth once d* LANTUS SOLOSTAR U-100 INSULIN* INJECT 39 UNITS SUBCUTANEOUS* NOVOLOG FLEXPEN U-100 INSULIN* INJECT 4 TIMES DAILY DIREC* COMPOUNDED PRESCRIPTION Portable oxygen Dx: Hypoxemia* ERGOCALCIFEROL (VITAMIN D2) 5* Take 1 capsule by mouth once * METOPROLOL SUCCINATE ER 25 MG* Take 1 tablet by mouth once d* ATORVASTATIN 40 MG TABLET Take 1 tablet by mouth daily * Medication notes this encounter AMIODARONE 200 MG TABLET >> Mya Willams LPN 03/05/2018 9:19 AM >> MYA WILLAMS LPN [facility] March 05, 2018 9:19 AM D/C by hospitalist GABAPENTIN 300 MG CAPSULE >> Mat Duffy MD 03/05/2018 9:42 AM mental status change Problem List As Of Date 03/05/2018 Noted Resolved 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 Essential hypertension with goal blood pressure*INVALID FOR* Ischemic ulcer of finger with necrosis of muscl*INVALID FOR*05/05/2017 More... 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] INVALID FOR* CKD (chronic kidney disease) stage V requiring *INVALID FOR* Hypoxemia [R09.02] INVALID FOR* Chronic diastolic CHF (congestive heart failure*INVALID FOR* Anemia in stage 3 chronic kidney disease [N18.3*INVALID FOR* JORGE (acute kidney injury) (HCC) [N17.9] INVALID FOR*02/11/2018 Acute renal failure on dialysis (HCC) [N17.9, Z*INVALID FOR*02/11/2018 Paroxysmal atrial fibrillation (HCC) [I48.0] INVALID FOR* Peripheral arterial occlusive disease (HCC) [I7*INVALID FOR* Medications Discontinued During This Encounter gabapentin (NEURONTIN) 300 mg capsule 90 c* 3 08/09/2017 03/05/2018 Class: [employer] Route: ORAL Sig: Take 1 capsule by mouth daily at bedtime. Patient not taking: Reported on 03/05/2018 Disc: Side Effects amiodarone (PACERONE) 200 mg tablet 03/05/2018 Class: Historical Med Route: ORAL Sig: Take 200 mg by mouth once daily. Disc: Discontinued by another Health Care Provider Disposition: Return in about 2 months (around 05/05/2018), or if symptoms worsen or fail to improve. Follow-up and Disposition History Recorded Encounter Status:Closed by MAT DUFFY MD on 03/05/18 SURGERY VISIT REPORT Observed: 03/05/2018 Status: F Source: [place] 8:01 AM [facility] [address] [place] [address] [address] [place] [address] OFFICE VISIT Date of Service: 03/05/18 MR#: [id number] Acct: [id number] Name: JOSEMICHAEL Rose Rep #: [id number] : 1945 Provider: Anoop Angeles MD Age/Sex: 72/F Location: [facility] Status: Signed Intake Vital Signs03/05/18 Height 5 ft 5 in 03/05/18 Weight: 209 lb 3 oz 03/05/18 Body Mass Index (BMI) 34.8 03/05/18 Blood Pressure 108/67 Intake Visit Reasons: fistula creation Chief Complaint: fistula placement Waste Collector Required: No Is patient in pain?: No Allergies No Known Allergies Allergy (Verified 03/05/18 07:41) Medications Acetaminophen [Tylenol 8 Hour] 650 mg PO Q6H PRN 03/01/18 [History Confirmed 03/05/18] Aspirin 325 mg PO DAILY@0800 03/01/18 [History Confirmed 03/05/18] Atorvastatin Calcium 40 mg PO QHS 03/01/18 [History Confirmed 03/05/18] Clonidine HCl 0.1 mg PO TID 03/01/18 [History Confirmed 03/05/18] Ergocalciferol [Vitamin D] 1 cap PO QMONTH 03/01/18 [History Confirmed 03/05/18] Furosemide 60 mg PO DAILY 03/01/18 [History Confirmed 03/05/18] Insulin Aspart [Novolog Flexpen] See Protocol 03/01/18 [History Confirmed 03/05/18] Insulin Glargine [Lantus SoloStar Pen] 39 units SQ BID 03/01/18 [History Confirmed 03/05/18] Iron Polysaccharide Complex [Ferrex 150] 150 mg PO DAILY 03/01/18 [History Confirmed 03/05/18] Metoprolol Succinate 25 mg PO DAILY 03/01/18 [History Confirmed 03/05/18] Nystatin Powder [Mycostatin Powder] 1 applic TOPICAL BID 03/01/18 [History Confirmed 03/05/18] Pantoprazole Sodium 40 mg PO DAILY 03/01/18 [History Confirmed 03/05/18] Sertraline HCl [Zoloft] 25 mg PO DAILY 03/01/18 [History Confirmed 03/01/18] Is last menstrual period known: No Post menopausal: Yes Patient : No PFSH Medical History Chronic renal insufficiency, stage V (Acute) Rheumatic mitral insufficiency (Chronic) HTN (hypertension) (Chronic) 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) Obesity (BMI 30.0-34.9) (Chronic) Morbid obesity (Chronic) Obstructive sleep apnea (Chronic) Type 2 diabetes mellitus (Chronic) History of cerebral hemorrhage (Chronic) Anemia (Chronic) Aortic stenosis, mild (Chronic) Mitral stenosis (Chronic) Stroke (Chronic) Hyperlipidemia (Chronic) Vitamin D deficiency (Chronic) Neuropathic pain (Chronic) Aortic stenosis (Chronic) Bradycardia (Chronic) Cerebral hemorrhage (Chronic) Depression (Chronic) Dyspnea (Chronic) History of Coumadin therapy (Chronic) Left atrial enlargement (Chronic) Legally blind (Chronic) Lung nodule (Chronic) Palpitations (Chronic) Rheumatic mitral stenosis (Chronic) Wheezing (Chronic) Surgical History S/P craniotomy (Chronic) S/P Achilles tendon repair (Acute) S/P carpal tunnel release (Acute) S/P dialysis catheter insertion (Acute) S/P laparoscopic cholecystectomy (Acute) S/P rotator cuff repair (Acute) S/P tonsillectomy (Acute) Family History Mother Cancer Diabetes Kidney disease Father Heart disease Diabetes Kidney disease Social History Smoking Status: Former smoker HPI HPI HPI: MICHAEL GARCIA, is a 72 F who presents to the office today for surgical consultation regarding arteriovenous fistula creation. The patient is referred by and a written copy of my surgical consult will be returned to him. Patient is a 72. She is accompanied by her today. On February 26, 2018 at the [facility] she had bilateral upper extremity vein mapping. This demonstrates that bilateral upper extremity cephalic and basilic veins are patent and compressible. Bilateral brachial and radial arteries demonstrate normal flow. The patient is right arm dominant. The patient was hospitalized at the [facility] January 19 - January 22 with acute pulmonary edema and acute and chronic hypoxic hypercapnic respiratory failure. She had malfunctioning of left internal jugular tunneled dialysis catheters and subsequently had right internal jugular tunneled dialysis catheters replaced at that time. I perform that procedure for her. She does take a daily 325 mg aspirin. She has been feeling much improved since her discharge. There is still memory issues. She is assisted significantly by her . ROS General General: Yes weight change and appetite; no fatigue, colon cancer, breast cancer or weakness HEENT HEENT: Yes eye surgery; no difficulty swallowing, eye injury, swollen glands or hoarseness Endo Endocrine: Yes diabetes mellitus; no thyroid disease, thyroid cancer, Hair loss, heat intolerance or cold intolerance Musc Musculoskeletal: Yes back problems, arthritis and rheumatoid arthritis; no gout or joint pain Cardio Cardiovascular: Yes murmur and high blood pressure; no pacemaker, heart disease, atrial fibrillation, heart attack, heart stent, palpitations, shortness of breat with exertion or chest pain Psych Psychiatric: No depression, anxiety or hearing voices Resp Respiratory: Yes shortness of breath, Yes sleep apnea, No cough, No COPD, No asthma, No emphysema, No wheezing Gastro Gastrointestinal: No abdominal pain, No nausea or vomiting, No diarrhea, No constipation, No blood in stool, No acid reflux, No hemorrhoids, No ulcers, No gallbladder problem, No black,tarry stools Julio Hematologic: No blood thinners, No blood disorders, No bleeding, Yes anemia, No blood clots Neuro Neurologic: No system reviewed and no additional complaints, except as docu, No as per HPI, No abnormal walking, No abnormal hearing, No abnormal movements, No abnormal speech, No behavioral changes, No burning sensations, No confusion, No seizure-like activity, No unsteadiness, No dizziness, No localized weakness, No frequent falls, No headache(s), No lack of coordination, No loss of vision, No memory loss, No numbness, No other visual disturbances, No radiating pain, No restless legs, No sensory deficit, No fainting, No tingling, No tremor(s), No weakness, Yes other (cva) Exam Const General: cooperative, no acute distress Nutritional Appearance: overweight Orientation: alert, awake [facility] Head: normal to inspection Eyes General: appearance normal, both eyes and all related structures Neck Neck: normal visual inspection Chest Other: Increased anterior posterior diameter Well-healed lower right neck incision and tunneled right chest dialysis catheters Resp Effort AND Inspection: normal respiratory effort Auscultation: clear to auscultation bilaterally Cardio Rate: regular rate Rhythm: regular rhythm Heart Sounds: murmur GI Palpation: soft, no hepatosplenomegaly Neuro General: CN's II-XI intact bilaterally Extrem General: no clubbing, cyanosis or edema Other: 3+ left radial and brachial pulses Left cephalic vein is patent and compressible. At the wrist it is quite diminutive. It becomes reasonable the distal third of the forearm and throughout the forearm however it is rather deeply placed. Psych Affect: normal affect Assessment AND Plan Problems 1. Chronic renal insufficiency, stage V N18.5 Plan After visual inspection of her left upper extremity. Although the left upper arm cephalic vein is quite reasonable in size because of the patient's obesity it is rather deeply placed. The left forearm cephalic vein is patent and compressible. At the wrist it is rather diminutive but from the distal third of left forearm to the antecubital space it is patent compressible and appears to be of adequate diameter. I am proposing for her a transposition left forearm cephalic vein to radial artery arteriovenous fistula creation. She has a nicely palpable 3+ left radial pulse. I believe based upon her body habitus this will be the most expeditious fistula to create for her. It may require additional teaching assistant with balloon maturation. In addition it will then further assist with maturation of the upper arm cephalic vein. I discussed the technique, benefits, risks, alternatives. The patient and her have had an opportunity to ask and have questions answered. They are comfortable with this would like to schedule and proceed as noted Cc: Dr. Duffy and Dr. Alice Angeles M.D., F.A.C.S. Coding Level of Care Code Off vis,est,level 2 Diagnoses Chronic renal insufficiency, stage V N18.5 03/05/18 0801 <Electronically signed by Anoop Angeles MD> Date Anoop Angeles MD Cosigner Signature: Date (if applicable) CC: Domingo Jenkins M.D.; Mat Duffy MD 12 LEAD ELECTROCARDIOGRAM Observed: 03/04/2018 Status: F Source: [place] 2:39 PM [facility] [place] [facility] Cardiovascular Services [address] [place] [id number] 12 Lead EKG 03/01/18 0937 MR#: [id number] Acct: [id number] Name: GARCIAMICHAEL Rep #: [id number] : 1945 72 From: Reinier Lang MD Attending Dr: Mata Engle DO Status: DIS IN Ordering Dr: Severiano Nino MD Date: 03/01/18 Location: [facility] Sex: F C Admitted: 03/01/18 Test Reason : LOC Blood Pressure : / mmHG Vent. Rate : 070 BPM Atrial Rate : 070 BPM P-R Int : 172 ms QRS Dur : 100 ms QT Int : 442 ms P-R-T Axes : 064 -15 055 degrees QTc Int : 477 ms Normal sinus rhythm Low voltage QRS (limb leads) Poor R wave progression Confirmed by REINIER LANG MD ([id number]), food expeditor HONORIO SHEFFIELD ([id number]) on 03/04/2018 2:39:19 PM Referred By: Anoop Angeles Confirmed By:REINIER LANG MD 03/04/18 1439 Date Reinier Lang MD CC: SEVERIANO NINO MD; Mata Engle DO; Mat Duffy MD Signed DISCHARGE SUMMARY Observed: 03/03/2018 Status: F Source: [place] 9:11 AM [facility] [place] [facility] Medical Records Department [address] [place] [address] [place] [address] Discharge Summary 03/03/18907 MR#: [id number] Acct: [id number] Name: MICHAEL GARCIA Rep #: [id number] : 1945 72 From: Mata Engle DO PCP: Mat Duffy MD Status: ADM IN Y Location: [place] [address] Discharge Date and Diagnosis - Problem List Patient Problems: Active and Suspected Problems (Last Updated 01/22/18 @ 10:02 by Viviana Childers NP-Porter) Acute hypercapnic respiratory failure (Acute) Lethargy (Acute) Altered mental status, unspecified (Acute) Date of Admission: 03/01/18 Date of Discharge: 03/03/18 - Primary Discharge Diagnosis Active and Suspected Problems (Last Updated 01/22/18 @ 10:02 by HILARY NormanC) Acute hypercapnic respiratory failure (Acute) Lethargy (Acute) Altered mental status, unspecified (Acute) - Secondary Discharge Diagnosis Chronic Problems (Last Updated 01/22/18 @ 10:02 by HILARY NormanC) ESRD (end stage renal disease) on dialysis (Chronic) Rheumatic mitral insufficiency (Chronic) Paroxysmal A-fib (Chronic) Valvular heart disease (Chronic) End stage COPD (Chronic) Pulmonary hypertension (Chronic) HTN (hypertension) (Chronic) 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) S/P craniotomy (Chronic) For intracerebral hemorrhage Obesity (BMI 30.0-34.9) (Chronic) Morbid obesity (Chronic) Obstructive sleep apnea (Chronic) Untreated Type 2 diabetes mellitus (Chronic) History of cerebral hemorrhage (Chronic) Anemia (Chronic) Aortic stenosis, mild (Chronic) Mitral stenosis (Chronic) mild Stroke (Chronic) Hyperlipidemia (Chronic) Vitamin D deficiency (Chronic) Neuropathic pain (Chronic) Hospital Course and Treatment Imaging Results: Clinical Impression(s) from Imaging Studies Chest X-Ray 03/01/18 09:[address] 03/01/18 09:39 Rocael Valencia MD Operations: None Procedures: None Summary of Care Provided: The patient is a 72 year old F is with confusion after taking too many baclofen. Baclofen is renally excreted and patient was taking baclofen as prescribed. Patient is advised not take any further baclofen. Additionally, patient is also advised to stop Neurontin. Status improved after dialysis and the baclofen was removed. 1. toxic encephalopathy * 2/2 baclofen and neurontin in a patient with ESRD * having HD today and will see how patient responds * would DC baclofen and neurontin altogether * Improved today and back to normal. 2. acute on chronic hypercapnic respiratory failure * due to baclofen OD + COPD + pulmonary HTN * Off BiPAP * Patient has chronic oxygen at home * Follow-up with Dr. Valencia as outpatient. 3. ESRD * HD QMWF * HD YESTERDAY 4. Chest pain: * troponins negative * additional cardiac work up negative.[] Discharge Diet: Renal Diet Discharge Activity: Return to Normal Activity May resume sexual activity in: No Restrictions Keep extremity elevated above heart level: Operative Extremity Call your doctor if you observe: Fever of 101 or Higher, Shortness of breath, - - change in mental status Home Medications: Medications to take at Discharge Acetaminophen [Tylenol 8 Hour] 650 mg PO Q6H PRN 03/01/18 Aspirin 325 mg PO DAILY@0800 03/01/18 Atorvastatin Calcium 40 mg PO QHS 03/01/18 Clonidine HCl 0.1 mg PO TID 03/01/18 Ergocalciferol [Vitamin D] 1 capsule PO QMONTH 03/01/18 Furosemide 60 mg PO DAILY 03/01/18 Insulin Aspart [Novolog Flexpen] See Protocol 03/01/18 Insulin Glargine [Lantus SoloStar Pen] 39 units SQ BID 03/01/18 Iron Polysaccharide Complex [Ferrex 150] 150 mg PO DAILY 03/01/18 Metoprolol Succinate 25 mg PO DAILY 03/01/18 Nystatin Powder [Mycostatin Powder] 1 applic TOPICAL BID 03/01/18 Pantoprazole Sodium 40 mg PO DAILY 03/01/18 Sertraline HCl [Zoloft] 25 mg PO DAILY 03/01/18 Primary Care Physician: Mat Duffy MD [Primary Care Provider] - Within 2 Weeks [facility] When: every Friday, Friday, Friday Disposition: Home Minutes spent on discharge:: 28 Patient Condition:: Good Medical Necessity - Tobacco Use Smoking Status: Former smoker Meaningful Use Info Meaningful Use Diagnoses (Choose all that apply): None applicable Code Visit Inpatient E AND M: 10469 Disch Hosp 03/03/18910 <Electronically signed by Mata Engle DO> Date Mata Engle DO Cosigner Signature (if applicable): Date CC: Mata Engle DO; Mat Duffy MD Signed DISCHARGE INSTRUCTION Observed: 03/03/2018 Status: F Source: [place] 9:08 AM [facility] [place] [facility] Medical Records Department [address] [place] [address] Instructions for Home/Discharge Instructions 03/03/18905 MR#: [id number] Acct: [id number] Name: MICHAEL GARCIA Rep #: [id number] : 1945 72 From: Mata Engle DO PCP: Mat Duffy MD Status: ADM IN - Discharge Diagnoses Current Active Problems: Current Active and Chronic Problems (Last Updated 01/22/18 @ 10:02 by Viviana Childers, PROFESSIONAL ARCHITECT-C) Acute hypercapnic respiratory failure (Acute) Lethargy (Acute) Altered mental status, unspecified (Acute) You will use the following diet at home:: Renal (restricted protein/sodium) Your food should be the consistency of: Regular Your liquids should be the consistency of: Regular/Thin Discharge Activity: Return to Normal Activity May resume sexual activity in: No Restrictions Keep extremity elevated above heart level: Operative Extremity Call your doctor if you observe: Fever of 101 or Higher, Shortness of breath, - - change in mental status Allergies/Adverse Reactions: Allergies No Known Allergies Allergy (Verified 01/01/18 12:32) Medications to take at Discharge Acetaminophen [Tylenol 8 Hour] 650 mg PO Q6H PRN 03/01/18 Aspirin 325 mg PO DAILY@0800 03/01/18 Atorvastatin Calcium 40 mg PO QHS 03/01/18 Clonidine HCl 0.1 mg PO TID 03/01/18 Ergocalciferol [Vitamin D] 1 capsule PO QMONTH 03/01/18 Furosemide 60 mg PO DAILY 03/01/18 Insulin Aspart [Novolog Flexpen] See Protocol 03/01/18 Insulin Glargine [Lantus SoloStar Pen] 39 units SQ BID 03/01/18 Iron Polysaccharide Complex [Ferrex 150] 150 mg PO DAILY 03/01/18 Metoprolol Succinate 25 mg PO DAILY 03/01/18 Nystatin Powder [Mycostatin Powder] 1 applic TOPICAL BID 03/01/18 Pantoprazole Sodium 40 mg PO DAILY 03/01/18 Sertraline HCl [Zoloft] 25 mg PO DAILY 03/01/18 Primary Care Physician: Mat Duffy MD [Primary Care Provider] - Within 2 Weeks [facility] When: every Friday, Friday, Friday Proposed Discharge Date: 03/03/18 03/03/18 0908 <Electronically signed by Mata Engle DO> Date Mata Engle DO CC: Aydin Carroll D.O.; Domingo Jenkins M.D.; Mat Duffy MD BEDSIDE GLUCOSE Collected: 03/03/2018 Status: F Source: [place] 6:25 AM [facility] [place] [facility] TYPE CODE TESTS RESULT OUT OF REFERENCE UNITS RANGE LAB L501.080 70-110 mg/dL High BEDSIDE GLU 180 Result Comment: Insulin Given MANAGEMENT OF PATIENT CARE PER NURSING PROTOCOL Performed By: #### L501.080 #### [facility] Point of Care [address] [place] [address] BASIC METABOLIC Collected: 03/03/2018 Status: F Source: [place] PROFILE (BMP) 5:20 AM [facility] [place] [facility] TYPE CODE TESTS RESULT OUT OF RANGE REFERENCE UNITS LAB L501.0100 74-106 mg/dL High GLU 168 Result Comment: Fasting Glucose result greater than or equal to 126 mg/dL suggests DIABETES MELLITUS per A.D.A. criteria. Please note revised GLUCOSE reference range effective 2017. LAB L501.1000 7-18 mg/dL High BUN 19 LAB L501.1100 0.55-1.02 mg/dL High CREAT,SERUM 2.43 Result Comment: The validity of the calculated GFR AND GFRAA in patients over 70 years has not been determined. Clinical correlation is essential. LAB L501.1110 >60 mL/min Low EST GFR 21 Result Comment: Non- GFR Calc LAB L501.1115 >60 mL/min Low EST GFR - AA 25 Result Comment: GFR Calc LAB L501.1255 ml/min Normal Estimated CRCL 19.38 LAB L501.1300 10-20 RATIO Low BUN/CRE 7.8 LAB L501.2200 8.5-10 mg/dL Normal .1 CA 8.6 LAB L501.5300 136-14 mmol/L Normal 5 NA 139 LAB L501.5600 3.5-5. mmol/L Normal 1 K 3.7 LAB L501.5900 98-107 mmol/L Normal CL 98 LAB L501.6100 21.0-3 mmol/L Normal 2.0 CO2 31.0 LAB L501.6200 5-15 Normal GAP 10 Performed By: #### L500.2500 #### [facility] [address] [place], [address] CONSULTATION Observed: 03/03/2018 Status: F Source: [place] 5:18 AM [facility] [place] [facility] Medical Records Department [address] [place] [address] Consultation 03/02/18 0844 MR#: [id number] Acct: [id number] Name: MICHAEL GARCIA Rep #: [id number] : 1945 72 From: Rocael Valencia MD PCP: Mat Duffy MD Status: ADM IN Y Location: [place] [address] Problem List (1) Lethargy Status: Acute (2) Altered mental status, unspecified Status: Acute Qualifiers: Altered mental status type: stupor Qualified Code(s): R40.1 - Stupor (3) Acute on chronic respiratory failure with hypoxia and hypercapnia Status: Acute (4) ESRD (end stage renal disease) on dialysis Status: Chronic (5) Rheumatic mitral insufficiency Status: Chronic (6) Paroxysmal A-fib Status: Chronic (7) End stage COPD Status: Chronic (8) Pulmonary hypertension Status: Chronic (9) HTN (hypertension) Status: Chronic Qualifiers: Hypertension type: essential hypertension (10) CREST variant of scleroderma Status: Chronic (11) Peripheral arterial occlusive disease Status: Chronic (12) S/P craniotomy Status: Chronic Comment: For intracerebral hemorrhage (13) Obesity (BMI 30.0-34.9) Status: Chronic (14) Obstructive sleep apnea Status: Chronic Comment: Untreated (15) Type 2 diabetes mellitus Status: Chronic Qualifiers: (16) History of cerebral hemorrhage Status: Chronic (17) Mitral stenosis Status: Chronic Qualifiers: Cardiac valve disease etiology: etiology unspecified Qualified Code(s): 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 (18) Stroke Status: Chronic Qualifiers: CVA mechanism: unspecified Qualified Code(s): I63.9 - Cerebral infarction, unspecified (19) Hyperlipidemia Status: Chronic Qualifiers: (20) Vitamin D deficiency Status: Chronic (21) Neuropathic pain Status: Chronic Reason for Consult Date of Consultation: 03/02/18 Reason for Consultation: Respiratory failure History of Present Illness: The patient is a 72 year old F, with past medical history listed below, who presented to [facility] on 03/01/2019 after being found with decreased mental status. Patient reportedly started to report chest pain and shortness of breath that developed on the day of presentation. Conversation with at the bedside, patient did take 3 baclofen tablets yesterday secondary to some lower extremity neuropathy. Following these dosages, patient became less and less responsive, so EMS was called. While in the ER, patient had a relatively unremarkable workup. Chest x-ray did not show any significant infiltrates. Workup for sepsis was not significant. Patient was placed on her home BiPAP therapy and admitted to the regular floor. Overnight, patient has been less responsive per the . However, on my evaluation this morning, patient is opening her eyes and following commands. Patient does have some new jerking of her arms per the that was not there yesterday. Patient with no complaints this morning, but still remains confused on her current location. Patient's reports that she has not missed any hemodialysis. They had planned on going out of town, but this was canceled secondary to logistic issues. Patient typically receives her hemodialysis Friday, Friday and Friday. No significant change in diet or excessive fluids have been reported. Past Medical History Past Medical History (Chronic Problems): Chronic Problems (Last Updated 01/22/18 @ 10:02 by Viviana Childers, PROFESSIONAL ARCHITECT-C) ESRD (end stage renal disease) on dialysis (Chronic) Rheumatic mitral insufficiency (Chronic) Paroxysmal A-fib (Chronic) Valvular heart disease (Chronic) End stage COPD (Chronic) Pulmonary hypertension (Chronic) HTN (hypertension) (Chronic) 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) S/P craniotomy (Chronic) For intracerebral hemorrhage Obesity (BMI 30.0-34.9) (Chronic) Morbid obesity (Chronic) Obstructive sleep apnea (Chronic) Untreated Type 2 diabetes mellitus (Chronic) History of cerebral hemorrhage (Chronic) Anemia (Chronic) Aortic stenosis, mild (Chronic) Mitral stenosis (Chronic) mild Stroke (Chronic) Hyperlipidemia (Chronic) Vitamin D deficiency (Chronic) Neuropathic pain (Chronic) Allergies No Known Allergies Allergy (Verified 01/01/18 12:32) Home Medications: Ambulatory Orders Medication Instructions Recorded Acetaminophen [Tylenol 8 Hour] 650 mg PO Q6H PRN 03/01/18 Surgical History: cholecystectomy, rotator cuff repair, - ACTUARIAL ASSOCIATE History: No pertinent ACTUARIAL ASSOCIATE history Lives: Spouse/ Significant Other Smoking Status: Former smoker Drugs: None - *Family History Maternal History Items: Cancer, Diabetes, Renal Disease Paternal History Items: Diabetes, Heart Disease, Renal Disease Review of Systems Unable to obtain accurate/complete ROS d/t: Per , see HPI Patient Problems: Active and Suspected Problems (Last Updated 01/22/18 @ 10:02 by Viviana Childers, PROFESSIONAL ARCHITECT-C) Acute hypercapnic respiratory failure (Acute) Lethargy (Acute) Altered mental status, unspecified (Acute) Subjective: Patient follows with Dr. Cantu as an outpatient. Objective: Chest x-ray showed no acute infiltrate and hemodialysis catheter in good position. Outpatient studies show an FEV1 of 24% with a mixed ventilatory defect. Previous echocardiogram showed an EF of 65% with diastolic dysfunction and an RVSP of 51. - Physical Exam General: No apparent distress, - - RASS -1. Able to vocalize some for me. Not following commands at this time. HEENT: Atraumatic, PERRLA, EOMI, Normocephalic, - - Scleral injection without icterus Oral: No Gingival or Mucosal Lesions/ Ulcerations, Dry Mucosa, - - Some crusting around the mouth Neck: Supple, No JVD, No Nodes, Trachea Midline Lungs: No rhonchi, No wheeze, No rales, Diminished, - - Symmetric expansion. No dullness to percussion. Cardiovascular: Regular rate, Regular Rhythm, Normal S1, Normal S2, Murmur - Grade 2 out of 6 systolic ejection murmur at the right sternal border, No rub noted, No Gallop Abdomen: Bowel Sounds Present, Soft, Non Tender, Non-Distended, Obese Extremities: No cyanosis, Capillary Refill Less than 3 Seconds, Clubbing, Edema - Trace to 1+ Skin: No rashes, No breakdown Musculoskeletal: No Tenderness to Palpation of Joints or Extremities, No Muscle Wasting Lymphatic: No Cervical, Supraclavicular, or Inguinal Adenopathy Neurological: Cranial nerves II-XII grossly intact, Neuro grossly intact, Motor Exam 5/5 strength throughout Psych/Mental Status: Flat Affect, Restless Vital Signs Temp Pulse Resp BP Pulse Ox 36.2 C L 65 17 116/69 99 03/02/18 08:00 03/02/18 08:39 03/02/18 08:39 03/02/18 08:00 03/02/18 08:39 Oxygen Delivery Method Bi-pap Weight: 96.5 kg Body Mass Index (BMI) 35.4 Intake and Output for Last 24 Hours Intake Total 0 / 0 0 / 0 Output Total 125 / 125 100 / 100 Balance -125 / -125 -100 / -100 Laboratory Tests Past 24 Hrs WBC RBC Hgb Hct MCV MCH MCHC RDW RDW Differential Plt Count WBC 6.2 RBC 3.51 L Hgb 10.5 L Hct 34.7 L MCV 98.9 MCH 29.9 MCHC 30.3 L RDW 16.6 H RDW Differential 59.1 H POC Glucose POC Glucose 166 H 136 H 192 H Clinical Impression(s) from Imaging Studies Chest X-Ray 03/01/18 09:[address] 03/01/18 09:39 Assessment/Plan Active and Suspected Problems (Last Updated 01/22/18 @ 10:02 by Viviana Childers, PROFESSIONAL ARCHITECT-C) Acute hypercapnic respiratory failure (Acute) Lethargy (Acute) Altered mental status, unspecified (Acute) RECOMMENDATIONS: 1. Hemodialysis per nephrology 2. Continue bronchodilators, doubt need for steroids and antibiotics 3. Continue baseline BiPAP 20/08 4. Continue basal insulin and sliding scale IMPRESSIONS: 1. Acute on chronic combined respiratory failure secondary to baclofen overdose/end-stage COPD/pulmonary hypertension secondary to scleroderma Patient with marginal respiratory reserve at baseline and significant obstructive sleep apnea. Patient reportedly did take 3 baclofen yesterday secondary to lower extremity symptoms. This is excreted renally unchanged, and decreased mental status is likely secondary to continued baclofen effect. Patient is hemodialysis dependent. Would defer to hospitalist on whether renal should be consulted for acute hemodialysis. Patient appears to be compensating well with the use of BiPAP therapy. 2. History of new onset atrial fibrillation with RVR Patient is in normal sinus rhythm at this time. Patient would likely benefit from right heart catheterization as an outpatient. 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 She follows with Dr. Carroll as an outpatient 3. Hyperkalemia/CKD/morbid obesity/peripheral artery occlusive disease/crest variant of scleroderma/HTN/DM/INES/history of cerebral hemorrhage/anemia/stroke/HLD/neuropathic pain/vitamin D deficiency Complicates care, management, recovery, and prognosis. No significant change noted in baseline symptomatology to warrant any changes at this time. Likely okay to transition to baseline Lasix therapy. Code Visit Inpatient E AND M: 34102 Init Hosp L3 03/03/1818 <Electronically signed by Rocael Valencia MD> Date Rocael Valencia MD Cosigner Signature (if applicable): Date CC: Aydin Carroll D.O.; Domingo Jenkins M.D.; Mat Duffy MD Signed BEDSIDE GLUCOSE Collected: 03/02/2018 Status: F Source: [place] 11:26 PM [facility] [place] [facility] TYPE CODE TESTS RESULT OUT OF REFERENCE UNITS RANGE LAB L501.080 70-110 mg/dL High BEDSIDE GLU 176 Result Comment: Insulin Given MANAGEMENT OF PATIENT CARE PER NURSING PROTOCOL Performed By: #### L501.080 #### [facility] Point of Care [address] [place] [address] CONSULTATION Observed: 03/02/2018 Status: F Source: [place] 5:27 PM [facility] [place] [facility] Medical Records Department [address] [place] [address] Consultation 03/02/18 1724 MR#: [id number] Acct: [id number] Name: MICHAEL GARCIA Rep #: [id number] : 1945 72 From: Trell Jenkins MD PCP: Mat Duffy MD Status: ADM IN Y Location: [place] [address] Problem List (1) ESRD (end stage renal disease) on dialysis Status: Chronic Consultation - Renal 03/02/18 PCP/ Referring MD: Requesting physician: Dr Rosales Primary care physician: Mat Duffy Reason for Consultation:: ESRD - History of Present Illness History of Present Illness: The patient is a 72 year old F well known to us. ESRD on HD MWF schedule apparently went to PCP last week with back pain. was given baclofen. took about 2-3 doses and developed significant AMS brought into ER by currently finishing up dialysis. alert awake and answers most of questions breathing looks comfortable does not offer any complaints - Allergies Allergies: Allergies No Known Allergies Allergy (Verified 01/01/18 12:32) - Current Medications Current Medications: Current Medications Acetaminophen (Tylenol) 650 mg PO Q6H PRN PRN Reason: pain/fever Aspirin (Aspirin) 325 mg PO DAILY@0800 [facility] Last Admin: 03/02/18 15:47 Dose: 325 mg Atorvastatin Calcium (Lipitor) 40 mg PO QHS [facility] Last Admin: 03/01/18 21:28 Dose: Not Given Clonidine (Catapres) 0.1 mg PO TID [facility] Last Admin: 03/02/18 15:46 Dose: 0.1 mg Dextrose (D50w Syringe) 0 gm IV X1 PRN; Protocol PRN Reason: Hypoglycemia Ergocalciferol (Vitamin D) 50,000 unit PO QMONTH [facility] Furosemide (Lasix) 40 mg IV BID@1000,1800 [facility] Last Admin: 03/02/18 16:02 Dose: 40 mg Glucagon () 1 mg IM .X1 PRN PRN Reason: Hypoglycemia Heparin Sodium (Porcine) (Heparin Na) 5,000 unit SC Q8 [facility] Last Admin: 03/02/18 15:46 Dose: 5,000 units Insulin Aspart (Novolog Flexpen (Bkc)) 0 units SC Q6 [facility] PRN Reason: Protocol Last Admin: 03/02/18 11:43 Dose: Not Given Magnesium Hydroxide (Milk Of Magnesia) 30 ml PO DAILY PRN PRN PRN Reason: Constipation Metoprolol Succinate (Toprol Xl (Beta Stephania)) 25 mg PO DAILY [facility] Last Admin: 03/02/18 15:47 Dose: 25 mg Nystatin (Mycostatin Powder) 1 applic TOPICAL BID [facility] PRN Reason: Protocol Last Admin: 03/02/18 15:44 Dose: 1 applicatio Pantoprazole Sodium (Protonix) 40 mg PO DAILY [facility] Last Admin: 03/02/18 15:46 Dose: 40 mg Polysaccharide Iron Complex (Ferrex 150) 150 mg PO DAILY [facility] Last Admin: 03/02/18 15:47 Dose: 150 mg Sodium Chloride () 5 - 30 ml IV UD PRN PRN Reason: SALINE FLUSH Last Admin: 03/02/18 15:47 Dose: 10 ml - Past Medical History Past Medical History (Chronic Problems): Chronic Problems (Last Updated 01/22/18 @ 10:02 by Viviana Childers, PROFESSIONAL ARCHITECT-C) ESRD (end stage renal disease) on dialysis (Chronic) Rheumatic mitral insufficiency (Chronic) Paroxysmal A-fib (Chronic) Valvular heart disease (Chronic) End stage COPD (Chronic) Pulmonary hypertension (Chronic) HTN (hypertension) (Chronic) 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) S/P craniotomy (Chronic) For intracerebral hemorrhage Obesity (BMI 30.0-34.9) (Chronic) Morbid obesity (Chronic) Obstructive sleep apnea (Chronic) Untreated Type 2 diabetes mellitus (Chronic) History of cerebral hemorrhage (Chronic) Anemia (Chronic) Aortic stenosis, mild (Chronic) Mitral stenosis (Chronic) mild Stroke (Chronic) Hyperlipidemia (Chronic) Vitamin D deficiency (Chronic) Neuropathic pain (Chronic) - Past Surgical History Surgical History: cholecystectomy, rotator cuff repair, - - Social History Smoking Status: Former smoker Drugs: None - Family History Maternal Family History: Family History (Last Reviewed 01/01/18 @ 18:03 by Josi Hickman NP-C) Mother Cancer Diabetes Kidney disease Father Heart disease Diabetes Kidney disease History Items: Cancer, Diabetes, Renal Disease Paternal Family History: Family History (Last Reviewed 01/01/18 @ 18:03 by Josi Hickman NP-C) Mother Cancer Diabetes Kidney disease Father Heart disease Diabetes Kidney disease History Items: Diabetes, Heart Disease, Renal Disease Review of Systems Constitutional: Denies: Chills, Fever, Weight Change HEENT: Denies: Head Aches, Sinus Congestion, Sinus Drainage Cardiovascular: Denies: Chest Pain, Palpitations Respiratory: Denies: Cough, Shortness of breath at rest, Sputum production Gastrointestinal: Denies: Abdominal Pain, Nausea, Vomiting Genitourinary: Denies: Dysuria Musculoskeletal: Denies: Joint Pain, Joint Tenderness Skin: Denies: Rash, Wounds Neurological: Denies: Numbness, Tingling, Focal weakness Psychiatric: Denies: Anxiety, Depression, Homicidal Ideations, Suicidal Ideations Hematologic/ Lymphatic: Denies: Easy Bruising, Easy Bleeding Patient Problems: Active and Suspected Problems (Last Updated 01/22/18 @ 10:02 by Viviana Childers NP-C) Acute hypercapnic respiratory failure (Acute) Lethargy (Acute) Altered mental status, unspecified (Acute) - Physical Exam General: Alert, Oriented x3, Cooperative HEENT: Atraumatic, PERRLA, EOMI, Normocephalic Neck: Supple, No JVD, Negative Carotid Bruits Lungs: Clear to auscultation, Normal air movement Cardiovascular: Regular rate, No murmurs Abdomen: Bowel Sounds Present, Soft, Non Tender Extremities: No edema, Capillary Refill Less than 3 Seconds Skin: No rashes, No breakdown Musculoskeletal: No Tenderness to Palpation of Joints or Extremities Neurological: Cranial nerves II-XII grossly intact Psych/Mental Status: Normal Affect, Appropriate Vital Signs Temp Pulse Resp BP Pulse Ox 97.4 F L 68 12 150/64 H 100 03/02/18 16:00 03/02/18 16:06 03/02/18 16:00 03/02/18 16:00 03/02/18 16:00 Oxygen Flow Rate (L/min) 3 Oxygen Delivery Method Nasal Cannula Weight: 96.5 kg Body Mass Index (BMI) 35.4 Intake and Output for Last 24 Hours Intake Total 0 / 0 0 / 0 Output Total 125 / 125 350 / 350 Balance -125 / -125 -350 / -350 Laboratory Tests Past 24 Hrs WBC RBC Hgb Hct MCV MCH MCHC RDW RDW Differential Plt Count WBC 6.2 RBC 3.51 L Hgb 10.5 L Hct 34.7 L MCV 98.9 MCH 29.9 MCHC 30.3 L WBC RBC Hgb POC Glucose POC Glucose 169 H 121 H 166 H POC Glucose 136 H Assessment/Plan Active and Suspected Problems (Last Updated 01/22/18 @ 10:02 by Viviana Childers NP-C) Acute hypercapnic respiratory failure (Acute) Lethargy (Acute) Altered mental status, unspecified (Acute) ESRD AMS likely related to baclofen use in dialysis today see orders/ flowsheets mental status is significantly better as per staff asked her to hold baclofen for now completely discussed with at bedside 03/02/18 3843 <Electronically signed by Trell Jenkins MD> Date Trell Jenkins MD Cosigner Signature (if applicable): Date CC: Aydin Carroll D.O.; Domingo Jenkins M.D.; Mat Duffy MD Signed BEDSIDE GLUCOSE Collected: 03/02/2018 Status: F Source: [facility] 4:47 PM [facility] REPOSITORY TYPE CODE TESTS RESULT OUT OF REFERENCE UNITS RANGE LAB L501.080 70-110 mg/dL High BEDSIDE GLU 169 Result Comment: MANAGEMENT OF PATIENT CARE PER NURSING PROTOCOL Performed By: #### L501.080 #### [facility] Point of Care [address] [place], [place] [address] HEPATITIS B SURFACE Collected: 03/02/2018 Status: F Source: [facility]STOP[facility] AG 11:45 AM [facility] REPOSITORY TYPE CODE TESTS RESULT OUT OF RANGE REFERENCE UNITS LAB L3100.0400 Negative Normal HB Negative SURF AG Result Comment: Performed at: [facility] [id number] Flavoring Oil Filterer: Ayad Joy PhD, Phone: [phone] Performed By: #### L3100.0390 #### [facility] (refer to report for specific site) refer to report for address and phone number BEDSIDE GLUCOSE Collected: 03/02/2018 Status: F Source: [facility]HER 11:37 AM [facility] REPOSITORY TYPE CODE TESTS RESULT OUT OF REFERENCE UNITS RANGE LAB L501.080 70-110 mg/dL High BEDSIDE GLU 121 Result Comment: MANAGEMENT OF PATIENT CARE PER NURSING PROTOCOL Performed By: #### L501.080 #### [facility] Point of Care [address] [place] [address] BEDSIDE GLUCOSE Collected: 03/02/2018 Status: F Source: [place] 5:18 AM [facility] REPOSITORY TYPE CODE TESTS RESULT OUT OF REFERENCE UNITS RANGE LAB L501.080 70-110 mg/dL High BEDSIDE GLU 166 Result Comment: Insulin Given Dr Orders Followed MANAGEMENT OF PATIENT CARE PER NURSING PROTOCOL Performed By: #### L501.080 #### [facility] Point of Care [address] [place] [address] CBC W/DIFF, AUTOMATED Collected: 03/02/2018 Status: F Source: [place] 5:11 AM [facility] REPOSITORY TYPE CODE TESTS RESULT OUT OF RANGE REFERENCE UNITS LAB L100.1000 4.4-11.0 K/mm3 Normal WBC 6.2 LAB L100.1200 4.2-5.4 M/mm3 Low RBC 3.51 LAB L100.1300 12.0-15.0 g/dl Low HGB 10.5 LAB L100.1400 37-47 % Low HCT 34.7 LAB L100.1500 81-99 fL Normal MCV 98.9 LAB L100.1600 27.0-32.0 pg Normal MCH 29.9 LAB L100.1700 32-36 g/gl Low MCHC 30.3 LAB L100.1810 11.6-14.6 % High RDW CV 16.6 LAB L100.1820 35.1-43.9 fl High RDW SD 59.1 LAB L100.1900 150-450 K/mm3 Normal PLT 166 LAB L100.2000 6.2-12.0 fl Normal MPV 10.1 LAB L100.2100 47-70 % High NEUT% 82.3 LAB L100.2200 19-41 % Low LY% 11.4 LAB L100.2300 0-10 % Normal MONO% 4.7 LAB L100.2400 0-5 % Normal EO% 0.8 LAB L100.2500 0-1 % Normal BASO% 0.2 LAB L100.2550 0.0-0.9 % Normal IM GRAN % 0.600 Result Comment: IG% - Immature Granulocytes (promyelocytes, myelocytes and metamyelocytes) > 1% indicates that a LEFT SHIFT is Present. LAB L100.2620 2.0-7.7 X10 3/uL Normal Absolute Neut 5.1 LAB L100.2720 0.83-4.51 X10 3/ul Low Absolute Lymph 0.71 Performed By: #### L100.0100 #### [facility] [address] [place], [address] BASIC METABOLIC Collected: 03/02/2018 Status: F Source: [facility]HER PROFILE (BMP) 5:11 AM [facility] REPOSITORY TYPE CODE TESTS RESULT OUT OF RANGE REFERENCE UNITS LAB L501.0100 74-106 mg/dL High GLU 162 Result Comment: Fasting Glucose result greater than or equal to 126 mg/dL suggests DIABETES MELLITUS per A.D.A. criteria. Please note revised GLUCOSE reference range effective 2017. LAB L501.1000 7-18 mg/dL High BUN 39 LAB L501.1100 0.55-1.02 mg/dL High CREAT,SERUM 3.28 Result Comment: The validity of the calculated GFR AND GFRAA in patients over 70 years has not been determined. Clinical correlation is essential. LAB L501.1110 >60 mL/min Low EST GFR 15 Result Comment: Non- GFR Calc LAB L501.1115 >60 mL/min Low EST GFR - AA 18 Result Comment: GFR Calc LAB L501.1255 ml/min Normal Estimated CRCL 14.36 LAB L501.1300 10-20 RATIO Normal BUN/CRE 11.9 LAB L501.2200 8.5-10 mg/dL Normal .1 CA 8.6 LAB L501.5300 136-14 mmol/L Normal 5 NA 142 LAB L501.5600 3.5-5. mmol/L Normal 1 K 4.1 LAB L501.5900 98-107 mmol/L Normal CL 101 LAB L501.6100 21.0-3 mmol/L Normal 2.0 CO2 32.0 LAB L501.6200 5-15 Normal GAP 9 Performed By: #### L500.2500, L501.2300, L501.5200 #### [facility] [address] [place], [place], [id number] PHOSPHORUS Collected: 03/02/2018 Status: F Source: [place] 5:11 AM [facility] REPOSITORY TYPE CODE TESTS RESULT OUT OF RANGE REFERENCE UNITS LAB L501.2300 2.5-4.9 mg/dL High PHOS 5.5 Performed By: #### L500.2500, L501.2300, L501.5200 #### [facility] [address] [place], [place], [id number] MAGNESIUM Collected: 03/02/2018 Status: F Source: [place] 5:11 AM [facility] REPOSITORY TYPE CODE TESTS RESULT OUT OF RANGE REFERENCE UNITS LAB L501.5200 1.6-2.6 mg/dL Normal MG 2.0 Performed By: #### L500.2500, L501.2300, L501.5200 #### [facility] [address] [place], [address] BLOOD GASES BY CPS Collected: 03/01/2018 Status: F Source: [facility] 11:43 PM [facility] REPOSITORY TYPE CODE TESTS RESULT OUT OF RANGE REFERENCE UNITS LAB L9000.9990 Normal BLD GAS TYPE ART LAB L9001.1000 Normal SITE L Radial LAB L9001.1010 Normal LEX TEST POS LAB L9001.1050 O2 Normal Delivery Dev Bi / C PAP LAB L9001.1070 RR Normal 12 LAB L9001.1074 Normal FI02 35 LAB L9001.1088 Normal IPAP 20 LAB L9001.1090 Normal EPAP 11 LAB L9001.1104 Normal Results To HOSP MD LAB L9001.1105 Normal Time Given 2334 LAB L9001.1110 7.35-7.45 High pH - I-STAT 7.48 LAB L9001.1210 35-45 mmHg Normal pCO2 - ISTAT 44.6 LAB L9001.1310 75-100 mmHG Low PO2 I-STAT 67 LAB L9001.2300 22-26 mmol/L High HCO3 ISTAT 33.1 LAB L9001.2400 -2 to +2 mmol/L High BE ISTAT 10 LAB L9001.2415 mmol/L Normal TOTAL CO2 34 ISTAT LAB L9001.2425 95-99 % Low SO2 ISTAT 94 Performed By: #### L9000.0800 #### [facility] Point of Care [address] [place] [address] BEDSIDE GLUCOSE Collected: 03/01/2018 Status: F Source: [facility] 11:06 PM [facility] REPOSITORY TYPE CODE TESTS RESULT OUT OF REFERENCE UNITS RANGE LAB L501.080 70-110 mg/dL High BEDSIDE GLU 136 Result Comment: Dr Guadarrama Followed MANAGEMENT OF PATIENT CARE PER NURSING PROTOCOL Performed By: #### L501.080 #### [facility] Point of Care [address] [place] [address] BLOOD GASES BY CPS Collected: 03/01/2018 Status: F Source: [facility] 7:39 PM [facility] REPOSITORY TYPE CODE TESTS RESULT OUT OF RANGE REFERENCE UNITS LAB L9000.9990 Normal BLD GAS TYPE ART LAB L9001.1000 Normal SITE L Radial LAB L9001.1010 Normal LEX TEST POS LAB L9001.1050 O2 Normal Delivery Dev Bi / C PAP LAB L9001.1070 RR Normal 14 LAB L9001.1074 Normal FI02 50 LAB L9001.1088 Normal IPAP 15 LAB L9001.1090 Normal EPAP 11 LAB L9001.1104 Normal Results To HOSP LAB L9001.1105 Normal Time Given 1934 LAB L9001.1110 7.35-7.45 Low pH - I-STAT 7.33 LAB L9001.1210 35-45 mmHg High alert pCO2 - ISTAT 67.3 LAB L9001.1310 75-100 mmHG Normal PO2 I-STAT 84 LAB L9001.2300 22-26 mmol/L High HCO3 ISTAT 35.7 LAB L9001.2400 -2 to +2 mmol/L High BE ISTAT 10 LAB L9001.2415 mmol/L Normal TOTAL CO2 38 ISTAT LAB L9001.2425 95-99 % Normal SO2 ISTAT 95 Performed By: #### L9000.0800 #### [facility] Point of Care [address] [place] [address] HISTORY AND PHYSICAL Observed: 03/01/2018 Status: F Source: [facility] EXAM 5:22 PM [facility] REPOSITORY [facility] Medical Records Department [address] [place] [address] History and Physical 03/01/18 1449 MR#: [id number] Acct: [id number] Name: MICHAEL GARCIA Rose Rep #: [id number] : 1945 72 From: Jen Rosales MD PCP: Mat Duffy MD Status: ADM IN Y Location: [place] [address] Problem List (1) Altered mental status, unspecified Status: Acute Qualifiers: Altered mental status type: stupor Qualified Code(s): R40.1 - Stupor (2) Acute hypercapnic respiratory failure Status: Acute (3) Lethargy Status: Acute History of Present Illness Date of Admission: 03/01/18 Chief Complaint: altered mental status, shortness of breath The patient is a 72 year old F with past medical history of COPD, obstructive sleep apnea, scleroderma with CREST syndrome a mild aortic stenosis, anemia and hypertension as well as pulmonary hypertension and diabetes and PAD and chronic mitral valve insufficiency. She was admitted via the ED on 03/01/2018 after she woke her up in the middle of the night complaining of generalized shaking and shortness of breath. Able to get any history from the patient she was very somnolent during review. History gotten from . According to , patient woke up and said she was shaking all over around 3:30 AM. He also to call the EMS but patient says she just needed to rest by him for symptoms to resolve. However any this morning, he woke up to find patient short of breath and sitting by the side of the bed and shaking and complaining of chest pain. He medially called the EMS who came and brought the patient to the posterior emergency department. Per EMS squad documentation, a time they arrived at patient's house vitals where respiratory rate of 20 blood pressure of 170/1 5, pulse rate of 60. Patient was complaining of chest pain and shortness of breath and shaking by the bedside and she was started on 15 L of oxygen by non-rebreather mask. Oxygen level checked on patient's home oxygen and CPAP was 95%. Dialysis session was 2 days ago and patient is very compliant with her dialysis on Wednesdays and Fridays. She had recently taken a muscle relaxant prescribed by her primary care doctor on account of pain. According to the , yesterday she took about 3 tablets of 0.1 mg of the muscle relaxants. This is the usual dose she takes according to the . He had not noticed that she had taken any other medications recently. Unable to do review of systems as patient is very somnolent and not responding to questions. However according to he had not noticed anything out of place and patient had not had any complaints of fever, chills, any prior shortness of breath or chest pain, any palpitations, any abdominal pain, any diarrhea vomiting. Review of systems otherwise unable to obtain. In the ED, her vitals were as follows temperature of 98.3 Fahrenheit, pulse rate of 74, respiratory rate of 15 blood pressure of 143/55 and pulse ox of 91%. She was put on BiPAP with FiO2 of 35%. CT of the head done was negative for any acute intracranial pathology. Chest x-ray was also negative. She has been admitted to being managed for altered mental status possibly drug-induced from muscle relaxant that she took. [] Past Medical History Past Medical History (Chronic Problems): Chronic Problems (Last Updated 01/22/18 @ 10:02 by Viviana Childers PROFESSIONAL ARCHITECT-C) ESRD (end stage renal disease) on dialysis (Chronic) Rheumatic mitral insufficiency (Chronic) Paroxysmal A-fib (Chronic) Valvular heart disease (Chronic) End stage COPD (Chronic) Pulmonary hypertension (Chronic) HTN (hypertension) (Chronic) 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) S/P craniotomy (Chronic) For intracerebral hemorrhage Obesity (BMI 30.0-34.9) (Chronic) Morbid obesity (Chronic) Obstructive sleep apnea (Chronic) Untreated Type 2 diabetes mellitus (Chronic) History of cerebral hemorrhage (Chronic) Anemia (Chronic) Aortic stenosis, mild (Chronic) Mitral stenosis (Chronic) mild Stroke (Chronic) Hyperlipidemia (Chronic) Vitamin D deficiency (Chronic) Neuropathic pain (Chronic) Allergies No Known Allergies Allergy (Verified 01/01/18 12:32) Home Medications: Ambulatory Orders Medication Instructions Recorded Acetaminophen [Tylenol 8 Hour] 650 mg PO Q6H PRN 03/01/18 Surgical History: cholecystectomy, rotator cuff repair, - ACTUARIAL ASSOCIATE History: No pertinent ACTUARIAL ASSOCIATE history Lives: Spouse/ Significant Other Smoking Status: Former smoker Drugs: None - *Family History Maternal History Items: Cancer, Diabetes, Renal Disease Paternal History Items: Diabetes, Heart Disease, Renal Disease Review of Systems Constitutional: Denies: Fever, Malaise, Weakness Cardiovascular: Reports: Chest Pain. Denies: Chest Pressure, Chest Tightness, Light Headedness, Syncope Respiratory: Reports: Shortness of Breath, Shortness of breath at rest. Denies: Cough, Pleuritic Pain, Shortness of breath upon exertion, Sputum production, Wheezing Gastrointestinal: Denies: Abdominal Pain, Constipation, Diarrhea Skin: Denies: Dryness, Jaundice Neurological: Reports: Confusion, - - somnolence Hematologic/ Lymphatic: Denies: Easy Bruising, Easy Bleeding Unable to obtain accurate/complete ROS d/t: Limited review of systems is obtained from . VTE Information - Inpt Only VTE Present on Admission: No VTE Mechan Device Prophylaxis: SCD's VTE Pharm Prophylaxis ordered?: Yes Patient Problems: Active and Suspected Problems (Last Updated 01/22/18 @ 10:02 by Viviana Childers NP-C) Acute hypercapnic respiratory failure (Acute) Lethargy (Acute) Altered mental status, unspecified (Acute) - Physical Exam General: - - patient very obtunded, barely responsive to pain and pressure on nail bed and sternal pressure. HEENT: PERRLA, EOMI, Normocephalic Oral: Moist Mucosa Neck: Supple, No JVD Lungs: Clear to auscultation, Normal air movement Cardiovascular: Normal S1, Normal S2, No murmurs, - - bradycardic. Abdomen: Bowel Sounds Present, Soft, Non Tender, Non-Distended, No Hepato-splenomegaly, - - has umbilical hernia that is reducible Extremities: No clubbing, No cyanosis, No edema, Capillary Refill Less than 3 Seconds Skin: No rashes Musculoskeletal: No Tenderness to Palpation of Joints or Extremities Lymphatic: No Cervical, Supraclavicular, or Inguinal Adenopathy Neurological: Cranial nerves II-XII grossly intact, - - patient very obtunded, GCS-8;just mumbles in response to name being shouted out. Tone normal. Reflexes depressed in all extremities. Extensor plantar reflex is equivocal. Vital Signs Temp Pulse Resp BP Pulse Ox 98.3 F 50 L 14 123/63 H 97 03/01/18 09:36 03/01/18 14:24 03/01/18 14:24 03/01/18 14:10 03/01/18 14:24 Oxygen Flow Rate (L/min) 5 Oxygen Delivery Method Bi-pap Weight: 0 oz Body Mass Index (BMI) 0.0 Finger Stick Blood Glucose 500 Laboratory Tests Past 24 Hrs WBC 6.4 RBC 3.67 L Hgb 10.9 L Hct 35.8 L Assessment/Plan Active and Suspected Problems (Last Updated 01/22/18 @ 10:02 by Viviana Childers PROFESSIONAL ARCHITECT-C) Acute hypercapnic respiratory failure (Acute) Lethargy (Acute) Altered mental status, unspecified (Acute) 72 y/o Female with extensive past history including ESRD on hemodialysis, Wednesdays, hypertension, crest, pulmonary hypertension, mitral valve insufficiency and COPD as well as INES on CPAP. She presented with a few hours history of increased shaking and chest pain and then subsequently became up obtunded and somnolent and not very responsive. No she had taken muscle relaxants 1 day ago and these have been prescribed by PCP. 1. Altered mental status likely medication induced * Patient very somnolent and obtunded during review and could answer any questions. Flexed her upper extremity mildly to nail bed pressure and on sternal rub, barely made any movements. After a few minutes patient finally woke up to has been shaking her incessantly. She was actually very confused and unable to answer any questions and wanted to pull off BiPAP facemask. * Vitals show a bradycardia with heart rate been around 50. Vitals otherwise normal. * Neuro exam showed no focal deficit. * Labs are pretty unremarkable CBC showed no leukocytosis and hemoglobin of 10.9. * BMP showed BUN of 32 and Cr of 3.66. U tox not done * ABG: pH of 7.34, pCO2-60/7, pO2-75 * will order U tox. Admit to PCU with telemtry * CT head was negative for any acute intracranial pathology. Post surgical left sided occipital craniotomy changes with encephalomalacia and gliosis in left cerebellum. * will monitor. NPO for now due to risk of aspiration o/a of altered mental status * bedside swallow eval to assess swallowing once she is more responsive * will hold all medications that can cause AMS; opiates, gabapentin, baclofen, sertraline.. * 2. Acute on chronic hypercapnic respiratory failure * patient admitted with shortness of breath and chest pain as well as altered mental status * ABGs showed: pH of 7.34, pCO2-60.7, pO2-73; on 4L of oxygen by nasal canula * she was placed on BipPAP after these ABGs. * CXR showed mild pulmonary vascular congestion with cardiomegaly. Prominent right hilar shadow seen. Ill defined nodular density in left lung more obvious than previous exam. * patient started on BiPAP. Will monitor * will check BNPep to assess for any heart failure * Last echo(11/23): EF of 65%, with moderate diastolic dysfunction, moderately enlarged left atrium. RVSP was 51mmHg.; mild aortic stenosis, mild tricuspid valve insufficiency * continue BiPAP therapy to maintain saturation >92% * will check ABG and adjust as needed.n * pulmo consult. * 3. Chest pain, will want to rule out ACS * initial troponin was negative. EKGdid not show any acute ST changes * during my review, patient had a few runs of Vtach which resolved spontaneously * Repeat EKG showed left axis deviation, with no acute ST changes * will cycle troponins; will check magnesium level * SL nitroglycerin prn * 4. HFpEF * 2D echo (11/23) showed EF of 60-65%, wit moderate diastolic dysfunction. * per , patient on lasix; however, does currently not known. * check BNP to assess if there is evidence of CHF exacerbation * 5. ESRD on HD MWF * compliant. Last dialysis was Friday. * K is 4 * will consult nephrology- Dr Jenkins. Has dialysis catheter in left subclavian region * 6. HTN: * on clonidine, metoprolol * will resume medications. IV Hydralazine prn * will reconcile meds once brings meds * 7. INES: compliant with CPAP. setting unknown by . Currently on Bipap due to acute on chronic hypercapnic respiratory failure 8. Diabetes * on Insulin lantus 39IU bid and ISS. Will hold insulin lantus due to AMS and NPO status. * accuchecks q6. NPO sliding scale * * 9. DVT prophylaxis: heparin 10. GI prophylaxis: PPI This note was generated with [employer] dictation software. It may contain incorrect words, spelling, and punctuation that were not noted in checking the note before signing. Code Visit Inpatient E AND M: [id number] Init Hosp L3 03/01/18 1722 <Electronically signed by Jen Rosales MD> Date Jen Rosales MD Cosigner Signature: Date (if applicable) CC: Jen Rosales MD; Mat Duffy MD Signed EMERGENCY DEPARTMENT Observed: 03/01/2018 Status: F Source: [facility] SUMMARY 4:35 PM [facility] REPOSITORY [facility] Medical Records Department [address] [place] [address] Emergency Department Summary 03/01/18 0940 MR#: [id number] Acct: [id number] Name: MICHAEL GARCIA Rep #: [id number] : 1945 72 From: Severiano Nino MD PCP: Mat Duffy MD Status: ADM IN History of Present Illness Chief Complaint: Alt LOC Informant: Patient, Family, Band [place]over Limited: Stupor Onset: Hours - 6-7 Context: - - unk Timing: Continuous Associated Symptoms: cp/sob Narrative: Her and paramedics, chest pain or shortness of breath that started this morning, worsening. In and out of consciousness in route per EMS. Even prior to that, pulse ox was 95% on room air at home. History of heart disease, CHF, stroke, ESRD on dialysis, last session was 2 days ago and has been compliant. Very limited history due to level of consciousness. states she has had no narcotic pain medication, but last night she did take a muscle relaxer. He does not know any other details about it. - Past Medical History (1) Anemia Status: Chronic (2) Aortic stenosis, mild Status: Chronic (3) CREST variant of scleroderma Status: Chronic (4) ESRD (end stage renal disease) on dialysis Status: Chronic (5) End stage COPD Status: Chronic (6) HTN (hypertension) Status: Chronic (7) History of cerebral hemorrhage Status: Chronic (8) Hyperlipidemia Status: Chronic (9) Mitral stenosis Status: Chronic Comment: mild (10) Morbid obesity Status: Chronic (11) Neuropathic pain Status: Chronic (12) Obstructive sleep apnea Status: Chronic Comment: Untreated (13) Paroxysmal A-fib Status: Chronic (14) Peripheral arterial occlusive disease Status: Chronic (15) Pulmonary hypertension Status: Chronic (16) Rheumatic mitral insufficiency Status: Chronic (17) Stroke Status: Chronic (18) Type 2 diabetes mellitus Status: Chronic (19) Vitamin D deficiency Status: Chronic Past Medical History - Allergies and Home Meds Allergies/Adverse Reactions: Allergies No Known Allergies Allergy (Verified 01/01/18 12:32) Primary Care Physician: Mat Duffy MD [Primary Care Provider] - Surgical History: cholecystectomy, rotator cuff repair, - Lives: Spouse/ Significant Other Smoking Status: Former smoker - Family History Maternal Family History: Family History (Last Reviewed 01/01/18 @ 18:03 by MIKEY Pina) Mother Cancer Diabetes Kidney disease Father Heart disease Diabetes Kidney disease Family History: Reports: Cancer, Diabetes, Renal Disease Paternal Family History: Family History (Last Reviewed 01/01/18 @ 18:03 by MIKEY Pina) Mother Cancer Diabetes Kidney disease Father Heart disease Diabetes Kidney disease Family History: Reports: Diabetes, Heart Disease, Renal Disease Review of Systems ROS: Unable to Obtain Physical Exam Vital Signs/Narrative: Vital Signs 03/01/18 09:36 98.3 F 74 15 143/55 H 91 Inital Vital Signs reviewed: Yes General: Well nourished, Well developed, Obese, - - Lethargic/stuporous, does alert to voice and physical stimulation and can answer affirmative that she is short of breath and has some chest discomfort. Very little information/details available. Head: Normocephalic, Atraumatic Eyes: Perrl ENT: Moist mucous membranes Neck: Supple, Nontender Cardiovascular: Regular rate, Regular rhythm, No murmurs Respiratory: No distress, Chest nontender, Rales Abdomen: Soft, Nontender, Nondistended Extremities: Nontender, Edema - BLE Skin: Normal color, No rash Neurological: Cranial nerves II-XII grossly intact, Normal Strength - moving all 4 ext's, Normal Sensation - responds to pain all 4, Stupor Diagnostic/Tx/Re-eval Impressions Chest X-Ray 03/01/18 09:[address] 03/01/18 09:39 03/01/18 09:38 Chest 1 View (Portable) [RAD] Stat 03/01/18 09:39 CT Brain [Brain/Head without Contrast] [CT] Stat Laboratory Results WBC (4.4-11.0) K/mm3 RBC (4.2-5.4) M/mm3 Hgb (12.0-15.0) g/dl Hct (37-47) % MCV (81-99) fL - Rhythm Strip Rhythm Strip: Sinus Rhythm Rate: 70 Ectopy: None - EKG 1 Interpretation: Sinus Rhythm, No Acute Injury Pattern, - - Leftward axis is new. This is because of a change in polarization in lead III, however there are no other acute changes compared with her old EKG about a month ago. No new flipped T waves. - Medical Decision Making Her workup is fairly unremarkable. Her ABG did show mild acidosis with elevated PCO2, which may have been caused by the muscle relaxer she took. Her EKG and troponin are unremarkable, head CT shows no acute abnormalities, and chest x-ray shows no acute abnormalities. Urinalysis shows no infection. Plan is to put her on BiPAP to see if that helps and admit her to PCU. Will discuss with hospitalist. ED Disposition - Plan for ED Patient: Disposition: Acute Care [facility] Chief Complaint: Alt LOC Diagnosis: Acute hypercapnic respiratory failure, Lethargy Referrals: Mat Duffy MD [Primary Care Provider] - What to do if you have Problems For any increased pain, shortness of breath, bleeding, nausea or vomiting, chest pain, or any unexpected problems, contact your Primary Care Provider. Call [facility] ([phone]) or report to the closest Emergency Room. Call 911 if necessary. 03/01/18 1635 <Electronically signed by Severiano Nino MD> Date Severiano Nino MD Cosigner Signature (If Indicated): Date CC: Mat Duffy MD BEDSIDE GLUCOSE Collected: 03/01/2018 Status: F Source: [place] 4:23 PM [facility] [facility] TYPE CODE TESTS RESULT OUT OF REFERENCE UNITS RANGE LAB L501.080 70-110 mg/dL High BEDSIDE GLU 192 Result Comment: MANAGEMENT OF PATIENT CARE PER NURSING PROTOCOL Performed By: #### L501.080 #### [facility] [place], [place] [id number] TROPONIN-I Collected: 03/01/2018 Status: F Source: [place] 4:15 PM [facility] [facility] Order Comment: 'TROP' Serial specimen #1, #2 or #3: 2 TYPE CODE TESTS RESULT OUT OF RANGE REFERENCE UNITS LAB L501.4010 <0.045 ng/mL Normal < 0.015 TROPONIN-I Result Comment: TROPONIN-I EXPECTED VALUES <0.045 Negative 0.045 - 0.590 Consistent with Cardiac Damage > OR = 0.600 Critical Value Not every elevated troponin is indicative of SC. These values should be used with clinical judgement in examining the patient's clinical picture for diagnosis. To establish a diagnosis of SC versus myocardial injury, there must be a demonstrated rise and/or fall in the troponin values, in addition to ischemic symptoms, EKG changes, new regional wall motion abnormality, and/or angiographical evidence. PLEASE NOTE: REFERENCE RANGES EDITED 18 Performed By: #### L501.4010 #### [facility] [address] [place], [address] MAGNESIUM Collected: 03/01/2018 Status: F Source: [place] 4:15 PM [facility] [place] [facility] TYPE CODE TESTS RESULT OUT OF RANGE REFERENCE UNITS LAB L501.5200 1.6-2.6 mg/dL Normal MG 1.8 Performed By: #### L501.5200 #### [facility] [address] [place], [address] URINE DRUG SCREEN Collected: 03/01/2018 Status: F Source: [place] (VISTA) 3:43 PM [facility] [place] REPOS[facility] TYPE CODE TESTS RESULT OUT OF RANGE REFERENCE UNITS LAB L505.0075 TO BE Normal CONFIRMED Result Comment: CONFIRMATORY TESTING FOR ALL POSITIVE URINE DRUG SCREEN RESULTS WILL ONLY BE SENT OUT UPON PHYSICIAN ORDER. VISTA Urine Drug Screen methods provide only preliminary analytical test results. A more specific alternate chemical method must be used in order to obtain a confirmed analytical result. Gas chromatography/mass spectrometery (GC/MS) is the preferred confirmatory method. Clinical consideration and professional judgement should be applied to any drug of abuse test result, particularly when preliminary positive results are used. URINE TCA TESTING MUST BE ORDERED SEPARATELY. USE TEST MNEMONIC: [facility] LAB L505.5005 VISTA UDS PH 6 Normal LAB L505.5015 <1000 ng/mL AMPHETAMINES Normal NEGATIVE LAB L505.5025 < 200 ng/mL BARBITIURATES Normal NEGATIVE LAB L505.5035 < 200 ng/mL BENZODIAZIPINE Normal NEGATIVE LAB L505.5045 < 300 ng/mL COCAINE Normal NEGATIVE LAB L505.5055 < 500 ng/mL ECSTACY Normal NEGATIVE LAB L505.5065 < 300 ng/mL METHADONE Normal NEGATIVE LAB L505.5075 < 300 ng/mL OPIATES Normal NEGATIVE LAB L505.5085 < 25 ng/mL PCP Normal NEGATIVE LAB L505.5095 < 50 ng/mL THC Normal NEGATIVE Performed By: #### L505.5000 #### [facility] [address] [place], [address] BNP,B-TYPE NATRIURETIC Collected: 03/01/2018 Status: F Source: [place] PEPTIDE 3:40 PM [facility] [place] [facility] Order Comment: Comments: add on to blood draw from ED TYPE CODE TESTS RESULT OUT OF RANGE REFERENCE UNITS LAB L503.6620 0-100 pg/mL High B-TYPE 475.1 JUAN PABLO PEP Performed By: #### L503.6620 #### [facility] [address] [place], [address] URINALYSIS, COMPLETE Collected: 03/01/2018 Status: F Source: [place] 12:00 PM [facility] [place] [facility] Order Comment: Order Date: 03/01/18 How was Urine Obtained? CATHETER SPECIMEN TYPE CODE TESTS RESULT OUT OF RANGE REFERENCE UNITS LAB L400.3000 Yellow COLOR Normal Yellow LAB L400.3050 Clear Normal CLARITY Sl. Cloudy LAB L400.3200 Normal mg/dl Normal GLUCOSE, UR Normal LAB L400.3300 Negative mg/dL High BILIRUBIN URINE 1 Result Comment: COLOR OF URINE MAY AFFECT DIPSTICK RESULTS. LAB L400.3400 Negative mg/dl Normal KETONE UR Negative LAB L400.3465 1.002-1.030 Normal SP.GR. DIPSTX 1.025 LAB L400.3550 5.0 - 8.0 pH Normal UR 5.0 LAB L400.3600 Negative mg/dl High PROT DIPSTX 30 LAB L400.3700 Normal mg/dl Normal UROBILI Normal LAB L400.3750 Negative Normal NITRITE UR Negative LAB L400.3780 Negative /ul Normal OCCULT Negative BLOOD-UR LAB L400.3800 Negative /ul High LEUK ESTERASE 25 LAB L400.4050 0-5 /hpf Normal WBC 0-5 SEEN LAB L400.4100 0-5 /hpf Normal RBC-UA 0 SEEN LAB L400.4150 5-10 /hpf Normal SQUAM EPI 0 SEEN LAB L400.4300 None Seen /hpf Normal BACTERIA RARE LAB L400.4350 <or=2+ /hpf Normal MUCUS, URINE 0 SEEN LAB L400.4400 0-5 /lpf Normal HYALINE CAST 0-5 SEEN Performed By: #### L400.0001 #### [facility] [address] [place], [address] BLOOD GASES BY CPS Collected: 03/01/2018 Status: F Source: [place] 10:10 AM [facility] [place] [facility] TYPE CODE TESTS RESULT OUT OF RANGE REFERENCE UNITS LAB L9000.9990 Normal BLD GAS TYPE ART LAB L9001.1000 Normal SITE R Radial LAB L9001.1050 O2 Normal Delivery Dev Nasal Can LAB L9001.1055 /min Normal LPM 4.0 LAB L9001.1104 Normal Results To ED LAB L9001.1105 Normal Time Given 1008 LAB L9001.1110 7.35-7.45 Low pH - I-STAT 7.34 LAB L9001.1210 35-45 mmHg High pCO2 - ISTAT 60.7 LAB L9001.1310 75-100 mmHG Normal PO2 I-STAT 75 LAB L9001.2300 22-26 mmol/L High HCO3 ISTAT 32.7 LAB L9001.2400 -2 to +2 mmol/L High BE ISTAT 7 LAB L9001.2415 mmol/L Normal TOTAL CO2 34 ISTAT LAB L9001.2425 95-99 % Low SO2 ISTAT 93 Performed By: #### L9000.0800 #### [facility] Point of Care [address] [place] [address] CBC W/DIFF, AUTOMATED Collected: 03/01/2018 Status: F Source: [place] 9:40 AM [facility] [place] [facility] TYPE CODE TESTS RESULT OUT OF RANGE REFERENCE UNITS LAB L100.1000 4.4-11.0 K/mm3 Normal WBC 6.4 LAB L100.1200 4.2-5.4 M/mm3 Low RBC 3.67 LAB L100.1300 12.0-15.0 g/dl Low HGB 10.9 LAB L100.1400 37-47 % Low HCT 35.8 LAB L100.1500 81-99 fL Normal MCV 97.5 LAB L100.1600 27.0-32.0 pg Normal MCH 29.7 LAB L100.1700 32-36 g/gl Low MCHC 30.4 LAB L100.1810 11.6-14.6 % High RDW CV 16.4 LAB L100.1820 35.1-43.9 fl High RDW SD 58.0 LAB L100.1900 150-450 K/mm3 Normal PLT 160 LAB L100.2000 6.2-12.0 fl Normal MPV 9.4 LAB L100.2100 47-70 % High NEUT% 78.7 LAB L100.2200 19-41 % Low LY% 13.8 LAB L100.2300 0-10 % Normal MONO% 5.9 LAB L100.2400 0-5 % Normal EO% 0.8 LAB L100.2500 0-1 % Normal BASO% 0.2 LAB L100.2550 0.0-0.9 % Normal IM GRAN % 0.600 Result Comment: IG% - Immature Granulocytes (promyelocytes, myelocytes and metamyelocytes) > 1% indicates that a LEFT SHIFT is Present. LAB L100.2620 2.0-7.7 X10 3/uL Normal Absolute Neut 5.0 LAB L100.2720 0.83-4.51 X10 3/ul Normal Absolute Lymph 0.88 Performed By: #### L100.0100 #### [facility] [address] [place], [address] CHEST 1 VIEW Observed: 03/01/2018 Status: F Source: [place] (PORTABLE) 9:40 AM [facility] [place] RE[facility] Imaging Services [address] [place] [address] Chest 1 View (Portable) MR#: [id number] Acct: [id number] Name: MICHAEL GARCIA Rep #: [id number] : 1945 F 72 From: Javad Jalloh MD PCP: Mat Duffy MD Status: PRE ER Study: Chest 1 View (Portable) Date of Exam: 03/01/18 Exam# [id number] Ordering Dr: Severiano Nino MD STUDY: X-RAY CHEST REASON FOR EXAM: Female, 72 years old. Chest pain TECHNIQUE: View of the chest was obtained COMPARISON: January 22, 2018 FINDINGS: Cardiomegaly with mild pulmonary vascular congestion seen. Prominent right hilar shadow again seen. Dialysis catheter again noted. Ill-defined nodular density in the left lung more previous exam. No lung consolidation. No pneumothorax. Osseous structures remain unchanged IMPRESSION: No significant change in overall lung finding since previous exam. Right-sided dialysis catheter with its tip in the right atrium. Electronically Signed: Javad Jalloh, at 10:05 EDT Tel , Service support , RAD/Chest 1 View (Portable) CC: SEVERIANO NINO MD; Mat Duffy MD Business Support Administrator: Signed BASIC METABOLIC Collected: 03/01/2018 Status: F Source: [place] PROFILE (BMP) 9:40 AM [facility] [place] [facility] TYPE CODE TESTS RESULT OUT OF RANGE REFERENCE UNITS LAB L501.0100 74-106 mg/dL High GLU 202 Result Comment: Glucose result greater than or equal to 200 mg/dL suggests DIABETES MELLITUS per A.D.A. criteria. Please note revised GLUCOSE reference range effective 2017. LAB L501.1000 7-18 mg/dL High BUN 32 LAB L501.1100 0.55-1.02 mg/dL High CREAT,SERUM 3.66 Result Comment: The validity of the calculated GFR AND GFRAA in patients over 70 years has not been determined. Clinical correlation is essential. LAB L501.1110 >60 mL/min Low EST GFR 13 Result Comment: Non- GFR Calc LAB L501.1115 >60 mL/min Low EST GFR - AA 16 Result Comment: GFR Calc LAB L501.1255 ml/min Normal Estimated CRCL 0.00 LAB L501.1300 10-20 RATIO Low BUN/CRE 8.7 LAB L501.2200 8.5-10. mg/dL Normal 1 CA 8.7 LAB L501.5300 136-145 mmol/L Normal NA 137 LAB L501.5600 3.5-5.1 mmol/L Normal K 4.0 LAB L501.5900 98-107 mmol/L Normal CL 98 LAB L501.6100 21.0-32 mmol/L Normal .0 CO2 30.0 LAB L501.6200 5-15 Normal GAP 9 Performed By: #### L500.2500, L501.4010 #### [facility] [address] [place], [address] TROPONIN-I Collected: 03/01/2018 Status: F Source: [place] 9:40 AM [facility] [place] [facility] TYPE CODE TESTS RESULT OUT OF RANGE REFERENCE UNITS LAB L501.4010 <0.045 ng/mL Normal < 0.015 TROPONIN-I Result Comment: TROPONIN-I EXPECTED VALUES <0.045 Negative 0.045 - 0.590 Consistent with Cardiac Damage > OR = 0.600 Critical Value Not every elevated troponin is indicative of SC. These values should be used with clinical judgement in examining the patient's clinical picture for diagnosis. To establish a diagnosis of SC versus myocardial injury, there must be a demonstrated rise and/or fall in the troponin values, in addition to ischemic symptoms, EKG changes, new regional wall motion abnormality, and/or angiographical evidence. PLEASE NOTE: REFERENCE RANGES EDITED 18 Performed By: #### L500.2500, L501.4010 #### [facility] [address] [place], [address] BRAIN/HEAD WITHOUT Observed: 03/01/2018 Status: F Source: [place] CONTRAST 9:40 AM [facility] [place] RE[facility] Imaging Services [address] [facility] [place] [address] Brain/Head without Contrast MR#: [id number] Acct: [id number] Name: GARCIAMICHAEL Rep #: [id number] : 1945 F 72 From: Javad Jalloh MD PCP: Mat Duffy MD Status: REG ER Study: Brain/Head without Contrast Date of Exam: 03/01/18 Exam# [id number] Ordering Dr: Severiano Nino MD STUDY: CT BRAIN WITHOUT CONTRAST REASON FOR EXAM: Female, 72 years old. Altered level of consciousness RADIATION DOSAGE (If Supplied By Facility): CTDIvol = ( 44.99 ) mGy, DLP = ( 745.49 ) mGycm TECHNIQUE: Transaxial CT imaging of the brain was performed without administration of intravenous contrast material. Individualized dose optimization techniques were used for this CT. COMPARISON: CT examination of head from July 07, 2017 FINDINGS: Left-sided occipital craniotomy changes noted with encephalomalacia and gliosis in the left cerebellum. Residual recurrent disease cannot be excluded from this exam. Helical ectatic appearance of the vertebral artery Small low-attenuation area in the right superior frontal lobe noted which was present on previous examination possibly relate with partial replacement or chronic ischemia. Few scattered foci low-attenuation in the periventricular and subcortical white matter which are essentially nonspecific in imaging appearance however likely related with chronic small vessel disease. Intracranial atherosclerotic vascular calcifications. Mucosal thickening of the ethmoid air cells and the sphenoid sinus likely related with chronic sinusitis. IMPRESSION: No evidence for acute intracranial hemorrhage, mass effect or acute large territory infarcts. Postsurgical changes in the left cerebellum with encephalomalacia and gliosis. Mucosal thickening of the ethmoid air cells and the sphenoid sinus likely related with chronic sinusitis. Electronically Signed: Javad Jalloh, at 11:00 EDT Tel , Service support , CT/Brain/Head without Contrast CC: SEVERIANO NINO MD; Mat Duffy MD Business Support Administrator: Signed VENOUS DUPLEX UPPER Observed: 02/26/2018 Status: F Source: [place] EXTREMITY 5:52 PM [facility] [place] [facility] Cardiovascular Services [address] [place] [address] Saphenous Vein Mapping, Bilat 02/26/18 1329 MR#: [id number] Acct: [id number] Name: MICHAEL GARCIA Rose Rep #: [id number] : 1945 72 From: Anoop Angeles MD Attending Dr: Anoop Angeles MD Status: REG CLI Ordering Dr: Anoop Angeles MD Date: 02/26/18 Location: CVS Sex: F C Admitted: Reason For Study: pre-op, stage 4 renal failure Right Arm Left Arm Right Cephalic Vein at the shoulder Left Cephalic Vein at the shoulder measures .449 x .440 cm. measures .379 x .365 cm. Right Cephalic Vein mid bicep measures .506 Left Cephalic Vein at mid bicep x .448 cm. measures .396 x .372 cm. Right Cephalic Vein above antecub Left Cephalic Vein above antecub measures .639 x .686 cm. measures .546 x .564 cm. Right Cephalic Vein below antecub Left Cephalic Vein below antecub measures .313 x .320 cm. measures .319 x .326 cm. Right Cephalic Vein in the forearm Left Cephalic Vein in the forearm measures .253 x .252 cm. measures .280 x .299 cm. Right Cephalic Vein at the wrist Left Cephalic Vein at the wrist measures .193 x .212 cm. measures .227 x .206 cm. Right cephalic vein is compressible. Left cephalic vein is compressible. Right Basilic Vein at the origin Basilic vein at origin measures .458 x .465 measures .406 x .400 cm. cm. Right Basilic Vein above antecub Basilic vein above antecub measures .431 measures .604 x .544 cm. x .433 cm. Right Basilic Vein below antecub Basilic vein below antecub measures .199 measures .273 x .286 cm. x .193 cm. Right Basilic Vein in the forearm Basilic vein in the forearm measures .174 measures .161 x .199 cm. x .153 cm. Right Basilic Vein at the wrist Basilic vein at the wrist measures .166 measures .206 x .213 cm. x .166 cm. Right basilic vein is compressible. Left basilic vein is compressible. Brachial artery .546 x .585 cm. Brachial artery .347 x .306 cm. Brachial artery 57.8 cm/s. Brachial artery 58.9 cm/s. Radial artery .252 c .258 cm. Radial artery .312 x .289cm. Radial artery 76.2 cm/s. Radial artery 60.5cm/s. < Interpretation Summary Patent and compressible bilateral upper extremity cephalic and basilic veins with dimensions as noted. Normal flow bilateral brachial and radial arteries. Ordering Physician: Anoop Angeles Referring Physician: Anoop Angeles Performed By: Durga Tripp RVT 02/26/181751 Date Anoop Angeles MD CC: Anoop Angeles MD; Mat Duffy MD Date Dictated: 02/26/18 1329 Date Transcribed: 02/26/181751 Business Support Administrator: Signed CNPTOUTREACH Observed: 02/17/2018 Status: COMPLETED Source: [place] 12:00 AM [facility] REPOSITORY Patient Outreach (FAMPST) MICHAEL GARCIA ([id number]) 1945 F BLD Date Time Provider Department 02/17/18 MAT DUFFY FAMPST During your visit today, we recorded the following information about you: Allergies As of Date: 02/17/2018 (No Known Allergies) Date Reviewed: 02/11/2018 Reviewed by: Mya Willams LPN - Fully Assessed Visit Diagnosis:Medication management [Z79.899] Order(s):LIPID PANEL BASIC [SQLIPB] Order #: [id number] FUTURE Prescriptions as of 02/17/2018 Sig: FUROSEMIDE 40 MG TABLET Take 60 mg by mouth once joel* SERTRALINE 25 MG TABLET Take 1 tablet by mouth once d* CLONIDINE HCL 0.1 MG TABLET TAKE 1 TABLET THREE TIMES ESEQUIEL* ASPIRIN 325 MG TABLET,DELAYED* Take 325 mg by mouth daily wi* X AMIODARONE 200 MG TABLET Take 200 mg by mouth once esequiel* FERREX 150 MG IRON CAPSULE Take 1 capsule by mouth once * PANTOPRAZOLE 40 MG TABLET,DEL* Take 1 tablet by mouth once d* LANTUS SOLOSTAR U-100 INSULIN* INJECT 39 UNITS SUBCUTANEOUS* NOVOLOG FLEXPEN U-100 INSULIN* INJECT 4 TIMES DAILY DIREC* COMPOUNDED PRESCRIPTION Portable oxygen Dx: Hypoxemia* ERGOCALCIFEROL (VITAMIN D2) 5* Take 1 capsule by mouth once * METOPROLOL SUCCINATE ER 25 MG* Take 1 tablet by mouth once d* ATORVASTATIN 40 MG TABLET Take 1 tablet by mouth daily * X GABAPENTIN 300 MG CAPSULE Take 1 capsule by mouth daily* Patient not taking: Reported on 03/05/2018 Problem List As Of Date 02/17/2018 Noted Resolved 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 Essential hypertension with goal blood pressure*INVALID FOR* Ischemic ulcer of finger with necrosis of muscl*INVALID FOR*05/05/2017 More... 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] INVALID FOR* CKD (chronic kidney disease) stage V requiring *INVALID FOR* Hypoxemia [R09.02] INVALID FOR* Chronic diastolic CHF (congestive heart failure*INVALID FOR* Anemia in stage 3 chronic kidney disease [N18.3*INVALID FOR* JORGE (acute kidney injury) (HCC) [N17.9] INVALID FOR*02/11/2018 Acute renal failure on dialysis (HCC) [N17.9, Z*INVALID FOR*02/11/2018 Paroxysmal atrial fibrillation (HCC) [I48.0] INVALID FOR* Peripheral arterial occlusive disease (HCC) [I7*INVALID FOR* Encounter Status:Closed by EPIC, PRODUSER on 07/17/18 PROGRESS Observed: 02/11/2018 Status: COMPLETED Source: [place] 5:15 PM [facility] REPOSITORY HNO ID: [id number] Author: Mat Duffy Service: (none) Author Type: Physician Type: Progress Notes Filed: 02/12/2018 12:31 AM Note Text: This note was created using [employer]. Subjective Michael Garcia is a 72 year old female was admitted 01/19- 01/22 for pulmonary edema, respiratory failure, and malfunctioning dialysis catheter. She was doing somewhat better. She was getting depressed and irritable since she was being told she could not travel. She felt dialysis may be temporary. Review of Systems Constitutional: Positive for fatigue. Negative for chills, diaphoresis, fever and unexpected weight change. HENT: Negative. Eyes: Negative. Respiratory: Positive for cough, shortness of breath and wheezing. Cardiovascular: Positive for leg swelling. Negative for chest pain and palpitations. Genitourinary: Negative. Neurological: Positive for weakness. Negative for dizziness. ACTIVE PROBLEM LIST Type 2 Diabetes Mellitus With Renal Manifestations ([facility]) Essential Hypertension With Goal Blood Pressure Less Than 130/85 Hyperlipidemia Legally Blind Diabetic Peripheral Neuropathy Associated With Type 2 Diabetes Mellitus ([facility]) Primary 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 ([facility]) Ckd (Chronic Kidney Disease) Stage V Requiring Chronic Dialysis [facility] [place]) Hypoxemia Chronic Diastolic Chf (Congestive Heart Failure) ([facility]) Anemia in Stage 3 Chronic Kidney Disease Objective BP 112/52 (BP Site: Left Arm, BP Position: Sitting, BP Cuff Size: Regular Adult) Pulse 72 Temp 37.4 ?C (99.3 ?F) (Left Tympanic) Resp 20 Wt 94.3 kg (208 lb) SpO2 94% BMI 34.61 kg/m? Physical Exam Constitutional: No distress. Eyes: Conjunctivae are normal. Pupils are equal, round, and reactive to light. Left eye exhibits abnormal extraocular motion. Cardiovascular: S1 normal and S2 normal. Exam reveals no gallop. No murmur heard. Pulmonary/Chest: No respiratory distress. She has rales in the right lower field and the left lower field. Abdominal: She exhibits no distension. Musculoskeletal: She exhibits edema. Trace. Assessment and Plan ASSESSMENT/PLAN: 1. Chronic diastolic CHF (congestive heart failure) (HCC) - ICD9: 428.32, 428.0, ICD10: I50.32 (primary diagnosis) Discussed ongoing need for hemodialysis. - FUROSEMIDE 40 MG TABLET 2. Hypoxemia - ICD9: 799.02, ICD10: R09.02 On O2 via cannula. 3. CKD (chronic kidney disease) stage V requiring chronic dialysis (HCC) - ICD9: 585.6, V45.11, ICD10: N18.6, Z99.2 Usually permanent. 4. Paroxysmal atrial fibrillation (HCC) - ICD9: 427.31, ICD10: I48.0 Not anticoagulated. 5. Diabetic peripheral neuropathy associated with type 2 diabetes mellitus (HCC) - ICD9: 250.60, 357.2, ICD10: E11.42 Controlled. 6. Adjustment disorder with depressed mood - ICD9: 309.0, ICD10: F43.21 Start SERTRALINE 25 MG once daily. Discussed medication dosage, usage, goals of therapy, and side effects. Mat Duffy MD CNOV Observed: 02/11/2018 Status: COMPLETED Source: [place] 4:40 PM [facility] REPOSITORY Office Visit (INTMWS) MICHAEL GARCIA ([id number]) 1945 F BLD Date Time Provider Department 02/11/18 4:40 PM MAT DUFFY INTMWS During your visit today, we recorded the following information about you: Temperature Pulse Respiration Blood pressure 99.3 degrees 72/minute 20/minute 112/52 Weight 94.3 kg Mat Duffy 02/12/2018 12:31 AM Signed This note was created using NoteWriter. Subjective Michael Garcia is a 72 year old female was admitted 01/19- 01/22 for pulmonary edema, respiratory failure, and malfunctioning dialysis catheter. She was doing somewhat better. She was getting depressed and irritable since she was being told she could not travel. She felt dialysis may be temporary. Review of Systems Constitutional: Positive for fatigue. Negative for chills, diaphoresis, fever and unexpected weight change. HENT: Negative. Eyes: Negative. Respiratory: Positive for cough, shortness of breath and wheezing. Cardiovascular: Positive for leg swelling. Negative for chest pain and palpitations. Genitourinary: Negative. Neurological: Positive for weakness. Negative for dizziness. ACTIVE PROBLEM LIST Type 2 Diabetes Mellitus With Renal Manifestations ([facility] [place]) Essential Hypertension With Goal Blood Pressure Less Than 130/85 Hyperlipidemia Legally Blind Diabetic Peripheral Neuropathy Associated With Type 2 Diabetes Mellitus ([facility] [place]) Primary 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 ([facility] [place]) Ckd (Chronic Kidney Disease) Stage V Requiring Chronic Dialysis ([facility] [place]) Hypoxemia Chronic Diastolic Chf (Congestive Heart Failure) ([facility] [place]) Anemia in Stage 3 Chronic Kidney Disease Objective BP 112/52 (BP Site: Left Arm, BP Position: Sitting, BP Cuff Size: Regular Adult) Pulse 72 Temp 37.4 ?C (99.3 ?F) (Left Tympanic) Resp 20 Wt 94.3 kg (208 lb) SpO2 94% BMI 34.61 kg/m? Physical Exam Constitutional: No distress. Eyes: Conjunctivae are normal. Pupils are equal, round, and reactive to light. Left eye exhibits abnormal extraocular motion. Cardiovascular: S1 normal and S2 normal. Exam reveals no gallop. No murmur heard. Pulmonary/Chest: No respiratory distress. She has rales in the right lower field and the left lower field. Abdominal: She exhibits no distension. Musculoskeletal: She exhibits edema. Trace. Assessment and Plan ASSESSMENT/PLAN: 1. Chronic diastolic CHF (congestive heart failure) (HCC) - ICD9: 428.32, 428.0, ICD10: I50.32 (primary diagnosis) Discussed ongoing need for hemodialysis. - FUROSEMIDE 40 MG TABLET 2. Hypoxemia - ICD9: 799.02, ICD10: R09.02 On O2 via cannula. 3. CKD (chronic kidney disease) stage V requiring chronic dialysis (HCC) - ICD9: 585.6, V45.11, ICD10: N18.6, Z99.2 Usually permanent. 4. Paroxysmal atrial fibrillation (HCC) - ICD9: 427.31, ICD10: I48.0 Not anticoagulated. 5. Diabetic peripheral neuropathy associated with type 2 diabetes mellitus (HCC) - ICD9: 250.60, 357.2, ICD10: E11.42 Controlled. 6. Adjustment disorder with depressed mood - ICD9: 309.0, ICD10: F43.21 Start SERTRALINE 25 MG once daily. Discussed medication dosage, usage, goals of therapy, and side effects. Mat Duffy MD Referring Provider: SELF [[id number]] Allergies As of Date: 02/11/2018 (No Known Allergies) Date Reviewed: 02/11/2018 Reviewed by: Mya Willams LPN - Fully Assessed Reason for Visit: [facility] follow-up [Other] Cmt: Discharged 01/23/2018 Reason For Visit History Recorded Primary Visit Diagnosis:Chronic diastolic CHF (congestive heart failure) ([facility]) [I50.32] Other Visit Diagnoses:Hypoxemia [R09.02] CKD (chronic kidney disease) stage V requiring chronic dialysis ([facility]) [N18.6, Z99.2] Paroxysmal atrial fibrillation ([facility]) [I48.0] Diabetic peripheral neuropathy associated with type 2 diabetes mellitus (HCC) [E11.42] Adjustment disorder with depressed mood [F43.21] Order(s):sertraline (ZOLOFT) 25 mg tabletTake 1 tablet by mouth once daily. Depression.Disp: 30 tabletRfl: 2 Prescriptions as of 02/11/2018 Sig: FUROSEMIDE 40 MG TABLET Take 60 mg by mouth twice esequiel* CLONIDINE HCL 0.1 MG TABLET TAKE 1 TABLET THREE TIMES ESEQUIEL* AMIODARONE 200 MG TABLET Take 200 mg by mouth once esequiel* ASPIRIN 325 MG TABLET,DELAYED* Take 325 mg by mouth daily wi* FERREX 150 MG IRON CAPSULE Take 1 capsule by mouth once * PANTOPRAZOLE 40 MG TABLET,DEL* Take 1 tablet by mouth once d* LANTUS SOLOSTAR U-100 INSULIN* INJECT 39 UNITS SUBCUTANEOUS* NOVOLOG FLEXPEN U-100 INSULIN* INJECT 4 TIMES DAILY DIREC* COMPOUNDED PRESCRIPTION Portable oxygen Dx: Hypoxemia* ERGOCALCIFEROL (VITAMIN D2) 5* Take 1 capsule by mouth once * GABAPENTIN 300 MG CAPSULE Take 1 capsule by mouth daily* METOPROLOL SUCCINATE ER 25 MG* Take 1 tablet by mouth once d* ATORVASTATIN 40 MG TABLET Take 1 tablet by mouth daily * SERTRALINE 25 MG TABLET Take 1 tablet by mouth once d* Problem List As Of Date 02/11/2018 Noted Resolved 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 Essential hypertension with goal blood pressure*INVALID FOR* Ischemic ulcer of finger with necrosis of muscl*INVALID FOR*05/05/2017 More... 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] INVALID FOR* CKD (chronic kidney disease) stage V requiring *INVALID FOR* Hypoxemia [R09.02] INVALID FOR* Chronic diastolic CHF (congestive heart failure*INVALID FOR* Anemia in stage 3 chronic kidney disease [N18.3*INVALID FOR* JORGE (acute kidney injury) (HCC) [N17.9] INVALID FOR*02/11/2018 Acute renal failure on dialysis (HCC) [N17.9, Z*INVALID FOR*02/11/2018 Paroxysmal atrial fibrillation (HCC) [I48.0] INVALID FOR* Peripheral arterial occlusive disease (HCC) [I7*INVALID FOR* Prescriptions ordered this encounter Disp Refills Start End SERTRALINE 25 MG TABLET 30 t* 2 02/11/2018 Route: ORAL Sig: Take 1 tablet by mouth once daily. Depression. Medications Discontinued During This Encounter hydrALAZINE (APRESOLINE) 100 mg tabl* 270 * 1 01/02/2018 02/11/2018 Route: ORAL Sig: Take 1 tablet by mouth three times daily. Patient not taking: Reported on 02/11/2018 Disc: Discontinued by another Health Care Provider Encounter Status:Closed by MAT DUFFY MD on 02/12/18 12 LEAD ELECTROCARDIOGRAM Observed: 01/25/2018 Status: F Source: [place] 8:59 PM [facility] RE[facility] [address] 12 Lead EKG 01/22/18 0532 MR#: [id number] Acct: [id number] Name: MICHAEL GARCIA Rep #: [id number] : 1945 72 From: Reinier Lang MD Attending Dr: Fahad Sesay Status: DIS IN Ordering Dr: Fahad Sesay MD Date: 01/22/18 Location: [facility] Sex: F C Admitted: 01/19/18 Test Reason : AM EKG Blood Pressure : / mmHG Vent. Rate : 056 BPM Atrial Rate : 056 BPM P-R Int : 166 ms QRS Dur : 094 ms QT Int : 478 ms P-R-T Axes : 024 090 062 degrees QTc Int : 461 ms Sinus bradycardia Low voltage QRS (LIMB LEADS) Poor R wave progression Confirmed by REINIER LANG MD ([id number]), food expeditor HONORIO SHEFFIELD ([id number]) on 01/23/2018 1:25:54 PM Referred By: MATEO Confirmed By:REINIER LANG MD 01/23/18 1325 Date Reinier Lang MD CC: Fahad Sesay; Mat Duffy MD Signed 12 LEAD ELECTROCARDIOGRAM Observed: 01/25/2018 Status: F Source: [place] 8:57 PM [facility] Cardiovascular Services [address] [place] [address] 12 Lead EKG 01/19/1818 MR#: [id number] Acct: [id number] Name: JOSEMICHAEL Rose Rep #: [id number] : 1945 72 From: Ortiz Markham MD Attending Dr: Fahad Sesay Status: DIS IN Ordering Dr: Rashawn Sotelo MD Date: 01/19/18 Location: [facility] Sex: F C Admitted: 01/19/18 Test Reason : SOB Blood Pressure : / mmHG Vent. Rate : 078 BPM Atrial Rate : 078 BPM P-R Int : 178 ms QRS Dur : 102 ms QT Int : 420 ms P-R-T Axes : 047 -32 055 degrees QTc Int : 478 ms Normal sinus rhythm Indeterminate axis Abnormal ECG Confirmed by ORTIZ MARKHAM ([id number]), food expeditor HONORIO SHEFFIELD (56) on 01/22/2018 2:45:40 PM Referred By: LOIS Confirmed By:ORTIZ MARKHAM 01/22/18 1445 Date Ortiz Markham MD CC: Fahad Sesay; Rashawn Sotelo MD; Mat Duffy MD Signed DISCHARGE SUMMARY Observed: 01/23/2018 Status: F Source: [place] 11:58 AM [facility] RE[facility] Medical Records Department [address] [place] [address] Discharge Summary 01/23/18 1150 MR#: [id number] Acct: [id number] Name: MICHALE GARCIA Rep #: [id number] : 1945 72 From: Fahad Sesay MD PCP: Mat Duffy MD Status: DIS IN Y Location: [place] [address] Discharge Date and Diagnosis Date of Admission: 01/19/18 Date of Discharge: 01/22/18 - Primary Discharge Diagnosis #1 acute pulmonary edema. #2 acute on chronic hypoxic and hypercapnic respiratory failure. #3 malfunctioning left internal jugular tunneled dialysis catheter, placement of right internal jugular dialysis catheter. - Secondary Discharge Diagnosis Chronic Problems (Last Updated 01/22/18 @ 10:02 by Viviana Childers, PROFESSIONAL ARCHITECT-C) ESRD (end stage renal disease) on dialysis (Chronic) Rheumatic mitral insufficiency (Chronic) Paroxysmal A-fib (Chronic) Valvular heart disease (Chronic) End stage COPD (Chronic) Pulmonary hypertension (Chronic) HTN (hypertension) (Chronic) 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) S/P craniotomy (Chronic) For intracerebral hemorrhage Obesity (BMI 30.0-34.9) (Chronic) Morbid obesity (Chronic) Obstructive sleep apnea (Chronic) Untreated Type 2 diabetes mellitus (Chronic) History of cerebral hemorrhage (Chronic) Anemia (Chronic) Aortic stenosis, mild (Chronic) Mitral stenosis (Chronic) mild Stroke (Chronic) Hyperlipidemia (Chronic) Vitamin D deficiency (Chronic) Neuropathic pain (Chronic) Hospital Course and Treatment Imaging Results: Clinical Impression(s) from Imaging Studies Chest X-Ray 01/19/18 08:23 IMPRESSION: No plain film evidence of abnormality in the visualized dialysis catheter Increase in interstitial edema since the previous study, follow-up recommended to assure resolution Persistent plain film evidence of chronic bronchitis Stable cardiomegaly Electronically Signed: Delonte Tang MD at 8:58 EDT , Service support , Chest X-Ray 01/22/18 12:45 IMPRESSION: The tip of the right double-lumen catheter is at the junction of the superior vena cava and right atrium. CHF. Electronically Signed: Brett Arcos MD at 15:06 EDT Tel [phone], Service support , Dr. Jones, nephrology. Dr. Angeles, general surgery. Operations: None Procedures: - - Removal of left internal jugular tunneled dialysis catheter and placement of right internal jugular tunneled dialysis catheter. Summary of Care Provided: The patient is a 72 year old F admitted because of worsening shortness of breath when she was on hemodialysis at the dialysis center and she was sent to the emergency room and she was found to have acute pulmonary edema that was complicated by acute on chronic hypoxic and hypercapnic respiratory failure. Patient underwent urgent hemodialysis for acute pulmonary edema and her respiratory status improved. Nephrology consulted and she was continued on her hemodialysis as per nephrology recommendations. On admission, she was found to have acute on chronic hypoxic and hypercapnic respiratory failure as well as mild respiratory acidosis due to CO2 retention. Her pH on admission was 7.24, PCO2 of 75 and PO2 of 64. With dialysis, her respiratory status improved and she was able to go back on oxygen by nasal cannula at 3.5 L which is her baseline at home. During the dialysis, that digital field service technician noticed that the left IJ tunneled catheter is not working properly. Dr. Angeles consulted and he recommended to remove the left internal jugular dialysis catheter and to place another tunneled catheter. Patient underwent removal of the left internal jugular catheter and placement of tunneled dialysis catheter to the right internal jugular vein. After the placement of the tunneled catheter, patient did okay and chest x-ray after the procedure showed no evidence of pneumothorax, it does show pulmonary vascular congestion which is chronic. Patient discharged home in a stable medical condition, discharged on the same medication that he was taking before admission without any changes, continued on oxygen at 3.5 L, recommended follow- up with PCP in 2 weeks and follow-up with nephrology as scheduled. Discharge Activity: Return to Normal Activity Weight Bearing Status: Weight bearing as tolerated Call your doctor if you observe: Fever of 101 or Higher, Shortness of breath, Dizziness, Fainting spells, Chest pain, Increased palpitations (irregular heartbeat), Uncontrolled pain Home Medications: Medications to take at Discharge Atorvastatin Calcium [Lipitor] 40 mg PO QHS 11/27/17 Clonidine HCl 0.1 mg PO TID 11/27/17 Ergocalciferol [Vitamin D] 50,000 unit PO QMONTH 11/27/17 Furosemide [Lasix] 60 mg PO BID 11/27/17 Gabapentin [Neurontin] 300 mg PO QHS 11/27/17 Insulin Aspart [Novolog Flexpen] See Protocol SC TIDCM 11/27/17 Iron Polysaccharide Complex [Ferrex 150] 150 mg PO DAILYCM 11/27/17 Metoprolol Succinate [Toprol Xl] 25 mg PO DAILY 11/27/17 Pantoprazole Sodium [Protonix] 40 mg PO DAILY 11/27/17 Amiodarone HCl [Cordarone] 200 mg PO DAILY 01/19/18 Aspirin E.C. [Ecotrin] 325 mg PO DAILY@0800 01/19/18 Insulin Glargine [Lantus SoloStar Pen] 39 units SC BID 01/19/18 Primary Care Physician: Mat Duffy MD [Primary Care Provider] - Please follow up with your Primary Care Physician in: 2 weeks. Please Follow Up With: Trell Jenkins MD When: Please call his office Please Follow Up With: Juan Daniel Raymundo MD Disposition: Home Minutes spent on discharge:: 32 Patient Condition:: Stable Medical Necessity - Tobacco Use Smoking Status: Former smoker Tobacco Use: Secondhand Meaningful Use Info Meaningful Use Diagnoses (Choose all that apply): None applicable Code Visit Inpatient E AND M: 00684 Disch Hosp 01/23/18 1158 <Electronically signed by Fahad Sesay MD> Date Fahad Sesay MD Cosigner Signature (if applicable): Date CC: Fahad Sesay; Domingo Jenkins M.D.; Mat uDffy MD Signed BEDSIDE GLUCOSE Collected: 01/22/2018 Status: F Source: [place] 4:56 PM [facility] RE[facility] TYPE CODE TESTS RESULT OUT OF RANGE REFERENCE UNITS LAB L501.080 70-110 mg/dL Normal BEDSIDE GLU 79 Result Comment: MANAGEMENT OF PATIENT CARE PER NURSING PROTOCOL Performed By: #### L501.080 #### [facility] Point of Care [address] [place] [address] DISCHARGE INSTRUCTION Observed: 01/22/2018 Status: F Source: [place] 3:11 PM [facility] Medical Records Department [address] [place] [address] Instructions for Home/Discharge Instructions 01/22/18 1508 MR#: [id number] Acct: [id number] Name: MICHAEL GARCIA Rose Rep #: [id number] : 1945 72 From: Fahad Sesay MD PCP: Mat Duffy MD Status: ADM IN - Discharge Diagnoses Current Active Problems: Current Active and Chronic Problems (Last Updated 01/22/18 @ 10:02 by Viviana Childers, PROFESSIONAL ARCHITECT-C) Acute on chronic respiratory failure with hypoxia and hypercapnia (Acute) Problem with dialysis access (Acute) ESRD (end stage renal disease) on dialysis (Chronic) Paroxysmal A-fib (Chronic) Valvular heart disease (Chronic) End stage COPD (Chronic) Pulmonary hypertension (Chronic) HTN (hypertension) (Chronic) 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) Obesity (BMI 30.0-34.9) (Chronic) Obstructive sleep apnea (Chronic) Untreated Type 2 diabetes mellitus (Chronic) Anemia (Chronic) Aortic stenosis, mild (Chronic) Mitral stenosis (Chronic) mild Hyperlipidemia (Chronic) Vitamin D deficiency (Chronic) You will use the following diet at home:: Calorie/Carbohydrate Controlled (specify 1200, 1400, etc) - 1800 travis., Cardiac, Renal (restricted protein/sodium) Your food should be the consistency of: Regular Discharge Activity: Return to Normal Activity Weight Bearing Status: Weight bearing as tolerated Call your doctor if you observe: Fever of 101 or Higher, Shortness of breath, Dizziness, Fainting spells, Chest pain, Increased palpitations (irregular heartbeat), Uncontrolled pain Additional Instructions: Use oxygen to keep O2 sat between 88-92%. Allergies/Adverse Reactions: Allergies No Known Allergies Allergy (Verified 01/01/18 12:32) Medications to take at Discharge Atorvastatin Calcium [Lipitor] 40 mg PO QHS 11/27/17 Clonidine HCl 0.1 mg PO TID 11/27/17 Ergocalciferol [Vitamin D] 50,000 unit PO QMONTH 11/27/17 Furosemide [Lasix] 60 mg PO BID 11/27/17 Gabapentin [Neurontin] 300 mg PO QHS 11/27/17 Insulin Aspart [Novolog Flexpen] See Protocol SC TIDCM 11/27/17 Iron Polysaccharide Complex [Ferrex 150] 150 mg PO DAILYCM 11/27/17 Metoprolol Succinate [Toprol Xl] 25 mg PO DAILY 11/27/17 Pantoprazole Sodium [Protonix] 40 mg PO DAILY 11/27/17 Amiodarone HCl [Cordarone] 200 mg PO DAILY 01/19/18 Aspirin E.C. [Ecotrin] 325 mg PO DAILY@0800 01/19/18 Insulin Glargine [Lantus SoloStar Pen] 39 units SC BID 01/19/18 Primary Care Physician: Mat Duffy MD [Primary Care Provider] - Please follow up with your Primary Care Physician in: 2 weeks. Please Follow Up With: Trell Jenkins MD When: Please call his office Please Follow Up With: Juan Daniel Raymundo MD 01/22/18 0417 <Electronically signed by Fahad Sesay MD> Date Fahad eSsay MD CC: Rocael Valencia MD; Domingo Jenkins M.D.; Anoop Angeles MD; Mat Duffy MD HIV - [facility] Collected: 01/22/2018 Status: F Source: [place] 2:23 PM [facility] TYPE CODE TESTS RESULT OUT OF RANGE REFERENCE UNITS LAB L3890.6005 Nonreactive Normal HIV - [facility] Non-Reactive Performed By: #### L3890.6005 #### [facility] [address] [place], [address] HEPATITIS B SURFACE Collected: 01/22/2018 Status: F Source: [place] 2:23 PM [facility] TYPE CODE TESTS RESULT OUT OF RANGE REFERENCE UNITS LAB L3100.0400 Negative Normal HB Negative SURF AG Performed By: #### L3100.0390, L3100.0460, L3100.0528, L3100.0625 #### [facility] (refer to report for specific site) refer to report for address and phone number HEPATITIS B CORE AB Collected: 01/22/2018 Status: F Source: [place] TOTAL 2:23 PM [facility] TYPE CODE TESTS RESULT OUT OF RANGE REFERENCE UNITS LAB L3100.0460 Negative Normal HEP B Negative CORE,TOT Result Comment: Performed at: [facility] [id number] Flavoring Oil Filterer: Ayad Joy PhD, Phone: [phone] Performed By: #### L3100.0390, L3100.0460, L3100.0528, L3100.0625 #### [facility] (refer to report for specific site) refer to report for address and phone number HEP B SURFACE Collected: 01/22/2018 Status: F Source: [place] ANTIBODIES 2:23 PM [facility] TYPE CODE TESTS RESULT OUT OF RANGE REFERENCE UNITS LAB L3100.0528 . Normal Hep B Non Reactive Suzanne AB Result Comment: Non Reactive: Inconsistent with immunity, less than 10 mIU/mL Reactive: Consistent with immunity, greater than 9.9 mIU/mL Performed By: #### L3100.0390, L3100.0460, L3100.0528, L3100.0625 #### [facility] (refer to report for specific site) refer to report for address and phone number HEPATITIS C ANTIBODIES Collected: 01/22/2018 Status: F Source: [place] 2:23 PM [facility] TYPE CODE TESTS RESULT OUT OF RANGE REFERENCE UNITS LAB L3100.0650 0.0-0.9 s/co ratio Normal HEP C AB 0.1 Result Comment: Negative: < 0.8 Indeterminate: 0.8 - 0.9 Positive: > 0.9 The CDC recommends that a positive HCV antibody result be followed up with a HCV Nucleic Acid Amplification test ([id number]). Performed By: #### L3100.0390, L3100.0460, L3100.0528, L3100.0625 #### [facility] (refer to report for specific site) refer to report for address and phone number OPERATIVE REPORT Observed: 01/22/2018 Status: F Source: [place] 1:33 PM [facility] Medical Records Department [address] [place] [address] Operative Report 01/22/18 1327 MR#: [id number] Acct: [id number] Name: MICHAEL GARCIA Rep #: [id number] : 1945 72 From: Anoop Angeles MD PCP: Mat Duffy MD Status: ADM IN Location: [place] [address] Problem List (1) Problem with dialysis access Status: Acute Qualifiers: Encounter type: initial encounter Qualified Code(s): T82.898A - Other specified complication of vascular prosthetic devices, implants and grafts, initial encounter Report of Operation Date of Procedure: 01/22/18 Pre-Operative Diagnosis: Malfunction left internal jugular tunneled dialysis catheters Post-Operative Diagnosis: Same Surgery/Procedure Performed:: Right internal jugular 19 cm pre-curved palindrome catheter placement. Reference number [id number] lot #[id number]. Removal left internal tunneled dialysis catheters Description of Surgical Findings:: 72-year-old female was taken the operating room. She was placed on the table. She underwent monitored anesthesia care local anesthetic. Ancef 2 g given intravenous preoperatively. Bilateral neck and chest were sterilely prepped and draped in routine fashion. Ultrasound was used to identify the right internal jugular vein. 1% lidocaine mixed 50-50 with 0.5% Marcaine was used as local anesthetic throughout the procedure total of 18 cc was used. Local was instilled under ultrasound guidance. Micropuncture needle was inserted in the right internal jugular vein under ultrasound guidance. Micropuncture wire inserted. Fluoroscopy demonstrated good positioning. Then local was instilled down upon the chest wall. An appropriate exit site was selected. The 19 cm pre-curved palindrome catheter was tunneled from the chest to the neck. Then a micropuncture sheath was placed over the wire. That was upgraded to an 035 J-wire. That was serially dilated. The sheath dilator was inserted as unit under fluoroscopic control. The dilator wire removed. The catheter was advanced through the sheath. The sheath was split the catheter is in good position. It aspirated easily. Fluoroscopy demonstrated excellent positioning. It was secured to skin with interrupted 3-0 nylon. The neck site was closed with interrupted 5-0 Vicryl at that point I did encourage self-inflicted needle puncture to a finger. Gloves were changed. Sterile dressings were applied. Attention was now drawn to the left IJ. Local was instilled at the exit site. The exit site incision was enlarged. Sharp and blunt dissection was used to identify the cuff. The cuff was released. With continuous pressure held upon the tunnel site the catheter was removed. Subsequently bilaterally sterile dressings were applied. A Steri-Strip was applied to the right neck and Telfa OpSite. A silver impregnated dressing was placed at the exit site on the right and OpSite dressing. OpSite dressing placed on the left. Sponge instrument and needle counts were reported the surgeon for correct. Blood loss was minimal. She tired procedure well taken to the recovery area in satisfactory condition. Stat portable chest x-ray is pending. Anoop Angeles M.D., F.A.C.S. Type of Anesthesia:: Local MAC Anesthesiologist: Carmen Montemayor 01/22/18 6517 <Electronically signed by Anoop Angeles MD> Date Anoop Angeles MD CC: Rocael Valencia MD; Domingo Jenkins M.D.; Anoop Angeles MD; Mat Duffy MD Signed CHEST 1 VIEW Observed: 01/22/2018 Status: F Source: CHRISTOPHER (PORTABLE) 12:46 PM [facility] REPOSITORY [facility] Imaging Services [place] [address] Chest 1 View (Portable) MR#: [id number] Acct: [id number] Name: MICHAEL GARCIA Rep #: [id number] : 1945 F 72 From: Brett Arcos MD PCP: Mat Duffy MD Status: ADM IN Study: Chest 1 View (Portable) Date of Exam: 01/22/18 Exam# [id number] Ordering Dr: Anoop Angeles MD STUDY: X-RAY CHEST REASON FOR EXAM: Female, 72 years old. Line placement. TECHNIQUE: Single AP portable view of the chest. COMPARISON: Comparison is made with prior study dated January 19, 2018. FINDINGS: A right-sided double-lumen catheter has been placed. The tip is at the junction of the superior vena cava and right atrium. The left-sided double-lumen catheter has been removed. There is evidence of vascular congestion and CHF. Small left pleural effusion. Normal size heart. Normal mediastinum and jose f. Normal visualized pulmonary arteries. Normal visualized aortic arch and descending thoracic aorta. There are diffuse degenerative changes of the visualized thoracic spine. Prior vertebroplasty of the L1 vertebrae. There is degenerative osteoarthritis of the bilateral shoulders. There is no demonstrated abnormality of the visualized soft tissue structures of the upper abdomen. RAD/Chest 1 View (Portable) IMPRESSION: The tip of the right double-lumen catheter is at the junction of the superior vena cava and right atrium. CHF. Electronically Signed: Brett Arcos MD at 15:06 EDT Tel [phone], Service support , CC: Anoop Angeles MD; Mat Duffy MD Business Support Administrator: Signed BEDSIDE GLUCOSE Collected: 01/22/2018 Status: F Source: CHRISTOPHER 11:24 AM [facility] REPOSITORY TYPE CODE TESTS RESULT OUT OF REFERENCE UNITS RANGE LAB L501.080 70-110 mg/dL High BEDSIDE GLU 269 Result Comment: MANAGEMENT OF PATIENT CARE PER NURSING PROTOCOL Performed By: #### L501.080 #### [facility] Point of Care [address] [place] [address] BEDSIDE GLUCOSE Collected: 01/22/2018 Status: F Source: CHRISTOPHER 6:51 AM [facility] REPOSITORY TYPE CODE TESTS RESULT OUT OF REFERENCE UNITS RANGE LAB L501.080 70-110 mg/dL High BEDSIDE GLU 195 Result Comment: MANAGEMENT OF PATIENT CARE PER NURSING PROTOCOL Performed By: #### L501.080 #### [facility] Point of Care [address] [place] [address] CONSULTATION Observed: 01/22/2018 Status: F Source: [place] 5:55 AM [facility] Medical Records Department [address] [place] [address] Consultation 01/21/18 1832 MR#: [id number] Acct: [id number] Name: MICHAEL GARCIA Rep #: [id number] : 1945 72 From: Anoop Angeles MD PCP: Mat Duffy MD Status: ADM IN Location: [place] [address] Problem List (1) Problem with dialysis access Status: Acute Qualifiers: Encounter type: initial encounter Qualified Code(s): T82.898A - Other specified complication of vascular prosthetic devices, implants and grafts, initial encounter Reason for Consult Date of Consultation: 01/21/18 History of Present Illness: The patient is a 72 year old F [who was admitted to the [facility] on January 19, 2018 with shortness of breath. On December 08, 2017 after being consulted I placed a left internal jugular 23 cm pre-curved tunneled palindrome catheter for hemodialysis. At that time the patient had previously had a right internal jugular temporary catheters placed in the intensive care unit. According to the patient she was referred by Dr. Romeo to [facility] changed over to new catheters. Patient apparently was there to get advanced renal testing including a renal biopsy. The patient 2 days ago had successful hemodialysis through her tunneled dialysis catheters here in the hospital but today there were difficulties with catheter and once again a request has been made for new catheter placement. According to the patient and her she is not yet been referred for fistula creation. She does not believe that she has had vein mapping done of her arms. She does note that she is short of breath though slightly improved over admission. She has significant medical comorbidities including her significant ongoing shortness of breath end-stage renal disease on hemodialysis atrial fibrillation and type 2 diabetes mellitus advanced COPD chronic hypoxic respiratory failure essential hypertension history of cerebral bleed plus status post craniectomy. Obesity. Her most recent laboratory obtained today show white count of 9.7 with a 3.7 hematocrit 28.5 and a platelet count of 211,000. Her BUN is 43 and creatinine is 2.49. Glucose is 202. She has had a blood sugar as high as 421 during this presentation. Past Medical History Past Medical History (Chronic Problems): Chronic Problems (Last Updated 01/20/18 @ 11:18 by Fahad Sesay MD) ESRD (end stage renal disease) on dialysis (Chronic) Rheumatic mitral insufficiency (Chronic) Paroxysmal A-fib (Chronic) Valvular heart disease (Chronic) End stage COPD (Chronic) Pulmonary hypertension (Chronic) HTN (hypertension) (Chronic) 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) S/P craniotomy (Chronic) For intracerebral hemorrhage Obesity (BMI 30.0-34.9) (Chronic) Morbid obesity (Chronic) Obstructive sleep apnea (Chronic) Untreated Type 2 diabetes mellitus (Chronic) History of cerebral hemorrhage (Chronic) Anemia (Chronic) Aortic stenosis, mild (Chronic) Mitral stenosis (Chronic) mild Stroke (Chronic) Hyperlipidemia (Chronic) Vitamin D deficiency (Chronic) Neuropathic pain (Chronic) Allergies No Known Allergies Allergy (Verified 01/01/18 12:32) Home Medications: Ambulatory Orders Medication Instructions Recorded Atorvastatin Calcium [Lipitor] 40 mg PO QHS 11/27/17 Clonidine HCl 0.1 mg PO TID 11/27/17 Surgical History: cholecystectomy, rotator cuff repair, - Smoking Status: Former smoker Tobacco Use: Secondhand - *Family History Maternal History Items: Cancer, Diabetes, Renal Disease Paternal History Items: Diabetes, Heart Disease, Renal Disease Review of Systems Constitutional: Denies: Anorexia Eyes: Denies: Blurred vision HEENT: Denies: Difficulty Hearing Cardiovascular: Reports: Heaviness Respiratory: Reports: Cough, Shortness of Breath Gastrointestinal: Denies: Abdominal Pain Genitourinary: Denies: Dysuria Musculoskeletal: Denies: Arm Pain Patient Problems: Active and Suspected Problems (Last Updated 01/20/18 @ 11:18 by Fahad Sesay MD) Problem with dialysis access (Acute) - Physical Exam General: Alert, Oriented x3, Cooperative HEENT: Atraumatic Oral: Moist Mucosa Neck: Supple Lungs: - - Notably diminished air excursion. Rales 50% up Erythema at the exit site left anterior chest from the tunneled dialysis catheters. Persistent Steri-Stripped left neck Cardiovascular: Regular rate Abdomen: Bowel Sounds Present, Soft, Non Tender Extremities: No clubbing Musculoskeletal: No Tenderness to Palpation of Joints or Extremities Psych/Mental Status: Normal Affect Vital Signs Temp Pulse Resp BP Pulse Ox 98.7 F 74 18 142/62 H 96 01/21/18 15:40 01/21/18 18:14 01/21/18 15:40 01/21/18 18:14 01/21/18 15:40 Oxygen Flow Rate (L/min) 3.5 Oxygen Delivery Method Nasal Cannula Weight: 189 lb 13.088 oz Body Mass Index (BMI) 32.4 Intake and Output for Last 24 Hours Intake Total 250 / 250 1468 / 1468 390 / 390 Output Total 3000 / 3000 3200 / 3200 Balance 250 / 250 -1532 / -1532 -2810 / -2810 Microbiology Past 72 Hours 01/19/18 15:17 Influenza Types A,B Direct FA (BRYCE) - Final Mucosa - Nose Laboratory Tests Past 24 Hrs POC Glucose POC Glucose 148 H 163 H 172 H POC Glucose 421 H Assessment/Plan Active and Suspected Problems (Last Updated 01/20/18 @ 11:18 by Fahad Sesay MD) Problem with dialysis access (Acute) I am recommending the patient an attempt at ultrasound-guided tunneled dialysis catheter placement right internal jugular vein. She is aware the technique, benefits, risks and alternatives. I recommended removal of her left IJ catheters at that setting secondary to the erythema at the catheter exit site. It would seem reasonable in the near future to initiate evaluation for her AV fistula if that is deemed reasonable per nephrology. OR scheduling is allowing for a time slot approximately 2 to 3:00 tomorrow afternoon. I appreciate the opportunity of assisting with her surgical care Anoop Angeles M.D., F.A.C.S. 01/22/18 0555 <Electronically signed by Anoop Angeles MD> Date Anoop Angeles MD Cosigner Signature (if applicable): Date CC: Rocael Valencia MD; Domingo Jenkins M.D.; Anoop Angeles MD; Mat Duffy MD Signed CBC W/DIFF, AUTOMATED Collected: 01/22/2018 Status: F Source: CHRISTOPHER 5:50 AM [facility] REPOSITORY TYPE CODE TESTS RESULT OUT OF RANGE REFERENCE UNITS LAB L100.1000 4.4-11.0 K/mm3 Normal WBC 5.6 LAB L100.1200 4.2-5.4 M/mm3 Low RBC 3.11 LAB L100.1300 12.0-15.0 g/dl Low HGB 9.4 LAB L100.1400 37-47 % Low HCT 31.4 LAB L100.1500 81-99 fL High MCV 101.0 LAB L100.1600 27.0-32.0 pg Normal MCH 30.2 LAB L100.1700 32-36 g/gl Low MCHC 29.9 LAB L100.1810 11.6-14.6 % High RDW CV 18.0 LAB L100.1820 35.1-43.9 fl High RDW SD 65.2 LAB L100.1900 150-450 K/mm3 Normal PLT 174 LAB L100.2000 6.2-12.0 fl Normal MPV 8.9 LAB L100.2100 47-70 % Normal NEUT% 69.3 LAB L100.2200 19-41 % Normal LY% 20.0 LAB L100.2300 0-10 % Normal MONO% 7.3 LAB L100.2400 0-5 % Normal EO% 1.6 LAB L100.2500 0-1 % Normal BASO% 0.2 LAB L100.2550 0.0-0.9 % High IM GRAN % 1.600 Result Comment: IG% - Immature Granulocytes (promyelocytes, myelocytes and metamyelocytes) > 1% indicates that a LEFT SHIFT is Present. LAB L100.2620 2.0-7.7 X10 3/uL Normal Absolute Neut 3.9 LAB L100.2720 0.83-4.51 X10 3/ul Normal Absolute Lymph 1.12 LAB L100.4500 SMEAR Normal COMMENT SCANNED LAB L100.7300 ANISO Normal 3+ LAB L100.7800 Normal MACROCYTE 2+ Performed By: #### L100.0100 #### [facility] [address] [place], [address] PROTHROMBIN TIME W/INR Collected: 01/22/2018 Status: F Source: [place] 5:50 AM [facility] REPOS[facility]ORY TYPE CODE TESTS RESULT OUT OF RANGE REFERENCE UNITS LAB L300.4150 11.7-14.9 SECONDS Normal PROTIME 14.5 LAB L300.4200 Normal INR 1.1 Performed By: #### L300.3900, L300.4310 #### [facility] [address] [place], [address] PARTIAL THROMBOPLAST Collected: 01/22/2018 Status: F Source: [place] TIME 5:50 AM [facility] REPOSITORY TYPE CODE TESTS RESULT OUT OF REFERENCE UNITS RANGE LAB L300.4310 24.1-36.2 Seconds High PTT 41.6 Performed By: #### L300.3900, L300.4310 #### [facility] [address] [place], [address] BASIC METABOLIC Collected: 01/22/2018 Status: F Source: CHRISTOPHER PROFILE (BMP) 5:50 AM [facility] REPOSITORY TYPE CODE TESTS RESULT OUT OF RANGE REFERENCE UNITS LAB L501.0100 74-106 mg/dL High GLU 181 Result Comment: Fasting Glucose result greater than or equal to 126 mg/dL suggests DIABETES MELLITUS per A.D.A. criteria. Please note revised GLUCOSE reference range effective 2017. LAB L501.1000 7-18 mg/dL High BUN 38 LAB L501.1100 0.55-1.02 mg/dL High CREAT,SERUM 2.23 Result Comment: The validity of the calculated GFR AND GFRAA in patients over 70 years has not been determined. Clinical correlation is essential. LAB L501.1110 >60 mL/min Low EST GFR 23 Result Comment: Non- GFR Calc LAB L501.1115 >60 mL/min Low EST GFR - AA 28 Result Comment: GFR Calc LAB L501.1255 ml/min Normal Estimated CRCL 21.12 LAB L501.1300 10-20 RATIO Normal BUN/CRE 17.0 LAB L501.2200 8.5-10 mg/dL Normal .1 CA 8.6 LAB L501.5300 136-14 mmol/L Normal 5 NA 141 LAB L501.5600 3.5-5. mmol/L Normal 1 K 4.5 LAB L501.5900 98-107 mmol/L Normal CL 101 LAB L501.6100 21.0-3 mmol/L High 2.0 CO2 35.0 LAB L501.6200 5-15 Normal GAP 5 Performed By: #### L500.2500 #### [facility] [address] [place], [address] HEMOGLOBIN A1C Collected: 01/22/2018 Status: F Source: CHRISTOPHER 5:50 AM [facility] REPOSITORY TYPE CODE TESTS RESULT OUT OF RANGE REFERENCE UNITS LAB L501.9985 4.2-6.3 % High HGB A1C 6.4 Performed By: #### L501.9985 #### [facility] [address] [place], [address] BEDSIDE GLUCOSE Collected: 01/21/2018 Status: F Source: CHRISTOPHER 10:10 PM [facility] REPOSITORY TYPE CODE TESTS RESULT OUT OF REFERENCE UNITS RANGE LAB L501.080 70-110 mg/dL High BEDSIDE GLU 356 Result Comment: MANAGEMENT OF PATIENT CARE PER NURSING PROTOCOL Performed By: #### L501.080 #### [facility] Point of Care [address] [place] [address] BEDSIDE GLUCOSE Collected: 01/21/2018 Status: F Source: CHRISTOPHER 5:32 PM [facility] REPOSIT[facility] TYPE CODE TESTS RESULT OUT OF REFERENCE UNITS RANGE LAB L501.080 70-110 mg/dL High BEDSIDE GLU 148 Result Comment: MANAGEMENT OF PATIENT CARE PER NURSING PROTOCOL Performed By: #### L501.080 #### [facility] Point of Care [address] [place], [place] [address] BEDSIDE GLUCOSE Collected: 01/21/2018 Status: F Source: CHRISTOPHER 12:03 PM [facility] TYPE CODE TESTS RESULT OUT OF REFERENCE UNITS RANGE LAB L501.080 70-110 mg/dL High BEDSIDE GLU 163 Result Comment: MANAGEMENT OF PATIENT CARE PER NURSING PROTOCOL Performed By: #### L501.080 #### [facility] Point of Care [address] [place] [address] DISCHARGE INSTRUCTION Observed: 01/21/2018 Status: F Source: [place] 10:12 AM [facility] Medical Records Department [address] [facility] [place] [address] Instructions for Home/Discharge Instructions 01/21/18 1011 MR#: [id number] Acct: [id number] Name: JOSEMICHAEL Rose Rep #: [id number] : 1945 72 From: Fahad Sesay MD PCP: Mat Duffy MD Status: ADM IN - Discharge Diagnoses Current Active Problems: Current Active and Chronic Problems (Last Updated 01/20/18 @ 11:18 by Fahad Sesay MD) ESRD (end stage renal disease) on dialysis (Chronic) You will use the following diet at home:: Calorie/Carbohydrate Controlled (specify 1200, 1400, etc) - 1800 rtavis, Cardiac, Renal (restricted protein/sodium) Your food should be the consistency of: Regular Discharge Activity: Return to Normal Activity Weight Bearing Status: Weight bearing as tolerated Call your doctor if you observe: Fever of 101 or Higher, Shortness of breath, Dizziness, Fainting spells, Chest pain, Increased palpitations (irregular heartbeat), Uncontrolled pain Allergies/Adverse Reactions: Allergies No Known Allergies Allergy (Verified 01/01/18 12:32) Medications to take at Discharge Atorvastatin Calcium [Lipitor] 40 mg PO QHS 11/27/17 Clonidine HCl 0.1 mg PO TID 11/27/17 Ergocalciferol [Vitamin D] 50,000 unit PO QMONTH 11/27/17 Furosemide [Lasix] 60 mg PO BID 11/27/17 Gabapentin [Neurontin] 300 mg PO QHS 11/27/17 Insulin Aspart [Novolog Flexpen] See Protocol SC TIDCM 11/27/17 Iron Polysaccharide Complex [Ferrex 150] 150 mg PO DAILYCM 11/27/17 Metoprolol Succinate [Toprol Xl] 25 mg PO DAILY 11/27/17 Pantoprazole Sodium [Protonix] 40 mg PO DAILY 11/27/17 Amiodarone HCl [Cordarone] 200 mg PO DAILY 01/19/18 Aspirin E.C. [Ecotrin] 325 mg PO DAILY@0800 01/19/18 Insulin Glargine [Lantus SoloStar Pen] 39 units SC BID 01/19/18 Primary Care Physician: Mat Duffy MD [Primary Care Provider] - Please follow up with your Primary Care Physician in: 2 weeks. Please Follow Up With: Trell Jenkins MD When: Please call his office 01/21/18 1012 <Electronically signed by Fahad Sesay MD> Date Fahad Sesay MD CC: Rocael Valencia MD; Domingo Jenkins M.D.; Mat Duffy MD BEDSIDE GLUCOSE Collected: 01/21/2018 Status: F Source: CHRISTOPHER 6:56 AM [facility]POS[facility]ORY TYPE CODE TESTS RESULT OUT OF REFERENCE UNITS RANGE LAB L501.080 70-110 mg/dL High BEDSIDE GLU 172 Result Comment: MANAGEMENT OF PATIENT CARE PER NURSING PROTOCOL Performed By: #### L501.080 #### [facility] Point of Care [address] [place] [address] CBC W/DIFF, AUTOMATED Collected: 01/21/2018 Status: F Source: CHRISTOPHER 6:10 AM [facility] REPOSITORY TYPE CODE TESTS RESULT OUT OF RANGE REFERENCE UNITS LAB L100.1000 4.4-11.0 K/mm3 Normal WBC 9.7 LAB L100.1200 4.2-5.4 M/mm3 Low RBC 2.80 LAB L100.1300 12.0-15.0 g/dl Low HGB 8.7 LAB L100.1400 37-47 % Low HCT 28.5 LAB L100.1500 81-99 fL High MCV 101.8 LAB L100.1600 27.0-32.0 pg Normal MCH 31.1 LAB L100.1700 32-36 g/gl Low MCHC 30.5 LAB L100.1810 11.6-14.6 % High RDW CV 17.4 LAB L100.1820 35.1-43.9 fl High RDW SD 61.7 LAB L100.1900 150-450 K/mm3 Normal PLT 211 LAB L100.2000 6.2-12.0 fl Normal MPV 9.0 LAB L100.2100 47-70 % High NEUT% 79.6 LAB L100.2200 19-41 % Low LY% 10.0 LAB L100.2300 0-10 % Normal MONO% 9.0 LAB L100.2400 0-5 % Normal EO% 0.2 LAB L100.2500 0-1 % Normal BASO% 0.1 LAB L100.2550 0.0-0.9 % High IM GRAN % 1.100 Result Comment: IG% - Immature Granulocytes (promyelocytes, myelocytes and metamyelocytes) > 1% indicates that a LEFT SHIFT is Present. LAB L100.2620 2.0-7.7 X10 3/uL Normal Absolute Neut 7.7 LAB L100.2720 0.83-4.51 X10 3/ul Normal Absolute Lymph 0.97 Performed By: #### L100.0100 #### [facility] [address] [place], [place], [address] BASIC METABOLIC Collected: 01/21/2018 Status: F Source: CHRISTOPHER PROFILE (BMP) 6:10 AM [facility] REPOSITORY TYPE CODE TESTS RESULT OUT OF RANGE REFERENCE UNITS LAB L501.0100 74-106 mg/dL High GLU 202 Result Comment: Glucose result greater than or equal to 200 mg/dL suggests DIABETES MELLITUS per A.D.A. criteria. Please note revised GLUCOSE reference range effective 2017. LAB L501.1000 7-18 mg/dL High BUN 43 LAB L501.1100 0.55-1.02 mg/dL High CREAT,SERUM 2.49 Result Comment: The validity of the calculated GFR AND GFRAA in patients over 70 years has not been determined. Clinical correlation is essential. LAB L501.1110 >60 mL/min Low EST GFR 20 Result Comment: Non- GFR Calc LAB L501.1115 >60 mL/min Low EST GFR - AA 25 Result Comment: GFR Calc LAB L501.1255 ml/min Normal Estimated CRCL 18.92 LAB L501.1300 10-20 RATIO Normal BUN/CRE 17.3 LAB L501.2200 8.5-10 mg/dL Normal .1 CA 9.1 LAB L501.5300 136-14 mmol/L Normal 5 NA 139 LAB L501.5600 3.5-5. mmol/L Normal 1 K 4.6 LAB L501.5900 98-107 mmol/L Normal CL 98 LAB L501.6100 21.0-3 mmol/L Normal 2.0 CO2 32.0 LAB L501.6200 5-15 Normal GAP 9 Performed By: #### L500.2500 #### [facility] [place], [place], [address] BEDSIDE GLUCOSE Collected: 01/20/2018 Status: F Source: CHRISTOPHER 10:43 PM [facility]POS[facility] TYPE CODE TESTS RESULT OUT OF REFERENCE UNITS RANGE LAB L501.080 70-110 mg/dL High BEDSIDE GLU 421 Result Comment: MANAGEMENT OF PATIENT CARE PER NURSING PROTOCOL Performed By: #### L501.080 #### [facility] Point of Care [address] [place] [address] BEDSIDE GLUCOSE Collected: 01/20/2018 Status: F Source: [place] 4:06 PM [facility] TYPE CODE TESTS RESULT OUT OF REFERENCE UNITS RANGE LAB L501.080 70-110 mg/dL High BEDSIDE GLU 400 Result Comment: MANAGEMENT OF PATIENT CARE PER NURSING PROTOCOL Performed By: #### L501.080 #### [facility] Point of Care [address] [place] [address] BEDSIDE GLUCOSE Collected: 01/20/2018 Status: F Source: [place] 11:21 AM [facility]POS[facility] TYPE CODE TESTS RESULT OUT OF REFERENCE UNITS RANGE LAB L501.080 70-110 mg/dL High alert BEDSIDE GLU 478 Result Comment: Insulin Given MANAGEMENT OF PATIENT CARE PER NURSING PROTOCOL Performed By: #### L501.080 #### [facility] Point of Care [address] [place] [address] CONSULTATION Observed: 01/20/2018 Status: F Source: [place] 9:54 AM [facility] REPOSITORY [facility] Medical Records Department [address] [place] [address] Consultation 01/20/18 0943 MR#: [id number] Acct: [id number] Name: MICHAEL GARCIA Rep #: [id number] : 1945 72 From: Nidia Jones MD PCP: Mat Duffy MD Status: ADM IN Y Location: ICU ICU02-1 Problem List (1) ESRD (end stage renal disease) on dialysis Status: Acute Consultation - Renal PCP/ Referring MD: Requesting physician: [] Primary care physician: Mat Duffy - History of Present Illness History of Present Illness: The patient is a 72 year old F PMH of ESRD on HD MWF, Afib, DM, COPD, HTN, chronic respiratory failure , hemorrhagic CVA . Patient was sent from HD unit to [facility] ED for SOB and tachypnea. chest xray showed pulmonary vascular congestion. Patient was admitted to ICU with acute on chronic respiratory failure due to COPD exacerbation and pulmonary edema. Patient underwent HD yesterday in ICU with 2.4 L fluid removal. Patient has been on HD for 2 months now. Patient is feeling better now ROS: 12 systems review this morning is negative except for mild SOB [] - Allergies Allergies: Allergies No Known Allergies Allergy (Verified 01/01/18 12:32) - Current Medications Current Medications: Current Medications Amiodarone HCl (Cordarone) 200 mg PO DAILY [facility] Last Admin: 01/20/18 08:28 Dose: 200 mg Aspirin (Ecotrin) 325 mg PO DAILY@0800 [facility] Last Admin: 01/20/18 08:30 Dose: 325 mg Atorvastatin Calcium (Lipitor) 40 mg PO QHS [facility] Last Admin: 01/20/18 02:28 Dose: 40 mg Chlorhexidine Gluconate () 1 each TOPICAL DAILY [facility] Last Admin: 01/20/18 07:10 Dose: 1 each Clonidine (Catapres) 0.1 mg PO TID [facility] Last Admin: 01/20/18 07:10 Dose: 0.1 mg Ergocalciferol (Vitamin D) 50,000 unit PO QMONTH [facility] Furosemide (Lasix) 60 mg PO BID@1000,1800 [facility] Last Admin: 01/20/18 08:22 Dose: 60 mg Gabapentin (Neurontin) 300 mg PO QHS [facility] Last Admin: 01/20/18 02:24 Dose: 300 mg Heparin Sodium (Porcine) (Heparin Na) 5,000 unit SC BID [facility] Last Admin: 01/20/18 08:23 Dose: 5,000 u Sodium Chloride () 250 mls @ 15 mls/hr IV .[id number] PRN PRN Reason: SALINE FLUSH Sodium Chloride () 250 mls @ 15 mls/hr IV .[id number] PRN PRN Reason: SALINE FLUSH Insulin Aspart (Novolog Flexpen (Bkc)) 0 units SC ACHS [facility] PRN Reason: Protocol Last Admin: 01/20/18 08:20 Dose: 4 u Insulin Detemir (Levemir (Bkc)) 39 units SC BID [facility] Last Admin: 01/20/18 08:29 Dose: 39 units Magnesium Hydroxide (Milk Of Magnesia) 30 ml PO DAILY PRN PRN PRN Reason: Constipation Metoprolol Succinate (Toprol Xl (Beta Stephania)) 25 mg PO DAILY [facility] Last Admin: 01/20/18 08:36 Dose: 25 mg Pantoprazole Sodium (Protonix) 40 mg PO DAILY [facility] Last Admin: 01/20/18 08:28 Dose: 40 mg Polysaccharide Iron Complex (Ferrex 150) [facility] Sodium Chloride () 5 - 30 ml IV UD PRN PRN Reason: SALINE FLUSH - Past Medical History Past Medical History (Chronic Problems): Chronic Problems (Last Reviewed 01/01/18 @ 18:03 by Josi Hickman, PROFESSIONAL ARCHITECT-C) Rheumatic mitral insufficiency (Chronic) Valvular heart disease (Chronic) End stage COPD (Chronic) Pulmonary hypertension (Chronic) HTN (hypertension) (Chronic) 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) S/P craniotomy (Chronic) For intracerebral hemorrhage Obesity (BMI 30.0-34.9) (Chronic) Morbid obesity (Chronic) CKD (chronic kidney disease) stage 3, GFR 30-59 ml/min (Chronic) Obstructive sleep apnea (Chronic) Untreated Type 2 diabetes mellitus (Chronic) History of cerebral hemorrhage (Chronic) Anemia (Chronic) Aortic stenosis, mild (Chronic) Mitral stenosis (Chronic) mild Stroke (Chronic) Hyperlipidemia (Chronic) Vitamin D deficiency (Chronic) Neuropathic pain (Chronic) - Past Surgical History Surgical History: cholecystectomy, rotator cuff repair, - - Social History Smoking Status: Former smoker - Family History Maternal Family History: Family History (Last Reviewed 01/01/18 @ 18:03 by MIKEY Pina) Mother Cancer Diabetes Kidney disease Father Heart disease Diabetes Kidney disease History Items: Cancer, Diabetes, Renal Disease Paternal Family History: Family History (Last Reviewed 01/01/18 @ 18:03 by MIKEY Pina) Mother Cancer Diabetes Kidney disease Father Heart disease Diabetes Kidney disease History Items: Diabetes, Heart Disease, Renal Disease Patient Problems: Active and Suspected Problems (Last Reviewed 01/01/18 @ 18:03 by HILARY PinaC) ESRD (end stage renal disease) on dialysis (Acute) - Physical Exam General: Alert, Oriented x3 HEENT: Atraumatic Oral: Moist Mucosa Neck: Supple, No JVD Lungs: Diminished, Rhonchi Cardiovascular: Regular rate, Normal S1, Normal S2, Irregular Rate Abdomen: Bowel Sounds Present, Soft, Non Tender Extremities: - - trace edema Lymphatic: No Cervical, Supraclavicular, or Inguinal Adenopathy Neurological: Cranial nerves II-XII grossly intact, Neuro grossly intact Psych/Mental Status: Normal Affect Vital Signs Temp Pulse Resp BP Pulse Ox 97.9 F 69 22 H 120/57 L 93 01/20/18 07:42 01/20/18 08:36 01/20/18 07:42 01/20/18 08:36 01/20/18 07:42 Oxygen Flow Rate (L/min) 3 Oxygen Delivery Method Bi-pap Weight: 86.1 kg Body Mass Index (BMI) 32.4 Intake and Output for Last 24 Hours Intake Total 250 / 250 568 / 568 Output Total 2800 / 2800 Balance 250 / 250 -2232 / -2232 Microbiology Past 72 Hours 01/19/18 15:17 Influenza Types A,B Direct FA (BRYCE) - Final Mucosa - Nose Laboratory Tests Past 24 Hrs WBC RBC Hgb Hct MCV MCH MCHC RDW RDW Differential POC Glucose POC Glucose 359 H 238 H Assessment/Plan Active and Suspected Problems (Last Reviewed 01/01/18 @ 18:03 by Josi Hickman NP-C) ESRD (end stage renal disease) on dialysis (Acute) 1- ESRD on MWF HD access is left IJ tunneled cath Last HD session 01/19 with 2.4 L UF Next HD session 01/21 2- acute hypoxemic respiratory on chronic respiratory failure due to pulmonary edema/COPD exacerbation Better with HD Keep O>I COPD management as per the primary service Will continue to follow Nidia Jones MD [phone] 01/20/18 0954 <Electronically signed by Nidia Jones MD> Date Nidia Jones MD Cosigner Signature (if applicable): Date CC: Rocael Valencia MD; Domingo Jenkins M.D.; Mat Duffy MD Signed CONSULTATION Observed: 01/20/2018 Status: F Source: [place] 6:40 AM [facility] [place] [facility] Medical Records Department [address] [place] [id number] Consultation 01/19/18 1554 MR#: [id number] Acct: [id number] Name: MICHAEL GARCIA Rep #: [id number] : 1945 72 From: Rocael Valencia MD PCP: Mat Duffy MD Status: ADM IN Y Location: ICU ICU02-1 Problem List (1) Rheumatic mitral insufficiency Status: Chronic (2) Paroxysmal A-fib Status: Acute (3) Valvular heart disease Status: Chronic (4) End stage COPD Status: Chronic (5) Pulmonary hypertension Status: Chronic (6) JORGE (acute kidney injury) Status: Acute (7) Acute on chronic respiratory failure Status: Acute (8) HTN (hypertension) Status: Chronic Qualifiers: Hypertension type: essential hypertension (9) CREST variant of scleroderma Status: Chronic (10) Peripheral arterial occlusive disease Status: Chronic (11) S/P craniotomy Status: Chronic Comment: For intracerebral hemorrhage (12) Obesity (BMI 30.0-34.9) Status: Chronic (13) Morbid obesity Status: Chronic (14) CKD (chronic kidney disease) stage 3, GFR 30-59 ml/min Status: Chronic (15) Obstructive sleep apnea Status: Chronic Comment: Untreated (16) Type 2 diabetes mellitus Status: Chronic Qualifiers: (17) History of cerebral hemorrhage Status: Chronic (18) Anemia Status: Chronic Qualifiers: (19) Aortic stenosis, mild Status: Chronic (20) Mitral stenosis Status: Chronic Qualifiers: Cardiac valve disease etiology: etiology unspecified Qualified Code(s): 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 (21) Stroke Status: Chronic Qualifiers: CVA mechanism: unspecified Qualified Code(s): I63.9 - Cerebral infarction, unspecified (22) Hyperlipidemia Status: Chronic Qualifiers: (23) Vitamin D deficiency Status: Chronic (24) Neuropathic pain Status: Chronic Reason for Consult Date of Consultation: 01/19/18 Reason for Consultation: Acute on chronic respiratory failure History of Present Illness: The patient is a 72 year old F, with past medical history listed below and well-known to me from the outpatient practice, who presented to [facility] on 01/19/2018 secondary to progressive shortness of breath over the last 24 hours. Patient is on 3-1/2 L of oxygen at baseline and has been receiving hemodialysis Friday, Friday and Friday. Patient went to the dialysis center this morning and was too short of breath to be initiated secondary to a clotted access. Patient denied any prodromal symptoms such as fever, chills, nausea, vomiting, diarrhea, rash, sinus congestion or productive cough. While in the ER, patient was placed on BiPAP therapy and was noted to be hypoxic. Laboratory workup did show a relative anemia of 9.6 with an elevated creatinine, but close to baseline. Glucose was elevated at 303. Blood gas on BiPAP therapy showed a pH of 7.23, PCO2 75, PO2 64. Patient was initiated on azithromycin, aerosols and Solu-Medrol. Patient was then transferred to the intensive care unit. After arrival to the intensive care unit, patient was increased to 23/08 on her BiPAP. History was confirmed with the . No additional information was available. Patient reportedly has been doing relatively well from her perspective. Patient reportedly has been compliant with supplemental oxygen therapy. Patient does open her eyes to interact, but is not able to provide a full review of systems at this time. Past Medical History Past Medical History (Chronic Problems): Chronic Problems (Last Reviewed 01/01/18 @ 18:03 by Josi Hickman, MAN-C) Rheumatic mitral insufficiency (Chronic) Valvular heart disease (Chronic) End stage COPD (Chronic) Pulmonary hypertension (Chronic) HTN (hypertension) (Chronic) 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) S/P craniotomy (Chronic) For intracerebral hemorrhage Obesity (BMI 30.0-34.9) (Chronic) Morbid obesity (Chronic) CKD (chronic kidney disease) stage 3, GFR 30-59 ml/min (Chronic) Obstructive sleep apnea (Chronic) Untreated Type 2 diabetes mellitus (Chronic) History of cerebral hemorrhage (Chronic) Anemia (Chronic) Aortic stenosis, mild (Chronic) Mitral stenosis (Chronic) mild Stroke (Chronic) Hyperlipidemia (Chronic) Vitamin D deficiency (Chronic) Neuropathic pain (Chronic) Allergies No Known Allergies Allergy (Verified 01/01/18 12:32) Home Medications: Ambulatory Orders Medication Instructions Recorded Atorvastatin Calcium [Lipitor] 40 mg PO QHS 11/27/17 Clonidine HCl 0.1 mg PO TID 11/27/17 Surgical History: cholecystectomy, rotator cuff repair, - Smoking Status: Former smoker Tobacco Use: Secondhand - *Family History Maternal History Items: Cancer, Diabetes, Renal Disease Paternal History Items: Diabetes, Heart Disease, Renal Disease Review of Systems Unable to obtain accurate/complete ROS d/t: See HPI Objective: Chest x-ray was personally reviewed and shows increased infiltrates, right greater than left. Supportive devices appear in appropriate position. - Physical Exam General: - - RASS -1. Obese. Appears older than stated age. Fair synchrony with BiPAP HEENT: Atraumatic, PERRLA, EOMI, Normocephalic, - - No scleral icterus or injection noted. Oral: Moist Mucosa, No Gingival or Mucosal Lesions/ Ulcerations Neck: Supple, No Nodes, Trachea Midline, JVD, Right Lungs: No rhonchi, No wheeze, Diminished, Rales Cardiovascular: Regular rate, Regular Rhythm, Normal S1, Normal S2, Murmur - Grade 2 out of 6 systolic ejection murmur at the right sternal border, No rub noted, No Gallop Abdomen: Bowel Sounds Present, Soft, Non Tender, Non-Distended, Obese Extremities: No clubbing, No cyanosis, Edema - Plus lower extremity Skin: - - Well-healed indurated areas in the posterior aspect of both heels Musculoskeletal: No Tenderness to Palpation of Joints or Extremities Lymphatic: No Cervical, Supraclavicular, or Inguinal Adenopathy Neurological: Cranial nerves II-XII grossly intact, Neuro grossly intact, Motor Exam 5/5 strength throughout Psych/Mental Status: Alert and oriented to time, place, person, mood and affect Vital Signs Temp Pulse Resp BP Pulse Ox 36.4 C L 64 23 H 122/59 H 95 01/19/18 08:04 01/19/18 14:58 01/19/18 14:58 01/19/18 14:41 01/19/18 14:41 Oxygen Delivery Method Bi-pap Laboratory Tests Clinical Impression(s) from Imaging Studies Chest X-Ray 01/19/18 08:23 IMPRESSION: No plain film evidence of abnormality in the visualized dialysis catheter Increase in interstitial edema since the previous study, follow-up recommended to assure resolution Persistent plain film evidence of chronic bronchitis Stable cardiomegaly Electronically Signed: Delonte Tang MD at 8:58 EDT , Service support , Assessment/Plan RECOMMENDATIONS: 1. Hemodialysis as soon as possible 2. Continue bronchodilators, steroids and antibiotics for now 3. Increase BiPAP to 18/11 transiently until hemodialysis 4. Repeat ABG in 1 hour 5. Continue sliding scale insulin IMPRESSIONS: 1. Acute on chronic combined respiratory failure/end-stage COPD/pulmonary hypertension secondary to scleroderma Patient is not giving any prodromal symptoms consistent with a COPD exacerbation. Patient did miss hemodialysis this morning and does have increased infiltrates on chest x-ray. Treatment with antibiotics, steroids and bronchodilators would be appropriate for the first 24 hours. Will obtain hemodialysis overnight. Patient is improving by tomorrow after fluid removal, likely okay to discontinue steroids and antibiotics. Wean oxygen as tolerated. Will increase BiPAP to help with CO2 removal transiently. 2. History of new onset atrial fibrillation with RVR Patient is in normal sinus rhythm at this time. Patient would likely benefit from right heart catheterization once euvolemic. 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 She follows with Dr. Carroll as an outpatient 3. Hyperkalemia/CKD/morbid obesity/peripheral artery occlusive disease/crest variant of scleroderma/HTN/DM/INES/history of cerebral hemorrhage/anemia/stroke/HLD/neuropathic pain/vitamin D deficiency Complicates care, management, recovery, and prognosis. Renal is following. TIME: 32 minutes critical care time spent addressing patient's acute on chronic combined respiratory failure, end-stage renal disease, scleroderma, review of all data and collaboration with care team 01/20/18 0640 <Electronically signed by Rocael Valencia MD> Date Rocael Valencia MD Cosigner Signature (if applicable): Date CC: Rocael Valencia MD; Domingo Jenkins M.D.; Mat Duffy MD Signed BASIC METABOLIC Collected: 01/20/2018 Status: F Source: [place] PROFILE (BMP) 6:20 AM [facility] [place] [facility] Order Comment: REDRAW. PREVIOUS SPECIMEN REJECTED DUE TO HEMOLYZED >4+. 01/20/18 0609 Natalia Barragan. TYPE CODE TESTS RESULT OUT OF RANGE REFERENCE UNITS LAB L501.0100 74-106 mg/dL High GLU 343 Result Comment: Glucose result greater than or equal to 200 mg/dL suggests DIABETES MELLITUS per A.D.A. criteria. Please note revised GLUCOSE reference range effective 2017. LAB L501.1000 7-18 mg/dL High BUN 25 LAB L501.1100 0.55-1.02 mg/dL High CREAT,SERUM 2.17 Result Comment: The validity of the calculated GFR AND GFRAA in patients over 70 years has not been determined. Clinical correlation is essential. LAB L501.1110 >60 mL/min Low EST GFR 24 Result Comment: Non- GFR Calc LAB L501.1115 >60 mL/min Low EST GFR - AA 29 Result Comment: GFR Calc LAB L501.1255 ml/min Normal Estimated CRCL 21.71 LAB L501.1300 10-20 RATIO Normal BUN/CRE 11.5 LAB L501.2200 8.5-10 mg/dL Normal .1 CA 8.7 LAB L501.5300 136-14 mmol/L Low 5 NA 134 LAB L501.5600 3.5-5. mmol/L Normal 1 K 4.9 LAB L501.5900 98-107 mmol/L Low CL 96 LAB L501.6100 21.0-3 mmol/L Normal 2.0 CO2 32.0 LAB L501.6200 5-15 Normal GAP 6 Performed By: #### L500.2500 #### [facility] [address] [place], [address] HEP B SURFACE Collected: 01/20/2018 Status: F Source: [place] ANTIBODIES 6:20 AM [facility] [place] [facility] Order Comment: REDRAW. PREVIOUS SPECIMEN REJECTED DUE TO HEMOLYZED >4+. 01/20/18 0609 Natalia aBrragan. TYPE CODE TESTS RESULT OUT OF RANGE REFERENCE UNITS LAB L3100.0528 . Normal Hep B Non Reactive Suzanne AB Result Comment: Non Reactive: Inconsistent with immunity, less than 10 mIU/mL Reactive: Consistent with immunity, greater than 9.9 mIU/mL Performed at: - [facility] [address] [id number] Flavoring Oil Filterer: Ayad Joy PhD, Phone: [phone] Performed By: #### L3100.0528 #### [facility] (refer to report for specific site) refer to report for address and phone number CBC W/DIFF, AUTOMATED Collected: 01/20/2018 Status: F Source: [place] 5:10 AM [facility] [place] [facility] TYPE CODE TESTS RESULT OUT OF RANGE REFERENCE UNITS LAB L100.1000 4.4-11.0 K/mm3 Normal WBC 5.5 LAB L100.1200 4.2-5.4 M/mm3 Low RBC 3.13 LAB L100.1300 12.0-15.0 g/dl Low HGB 9.7 LAB L100.1400 37-47 % Low HCT 30.9 LAB L100.1500 81-99 fL Normal MCV 98.7 LAB L100.1600 27.0-32.0 pg Normal MCH 31.0 LAB L100.1700 32-36 g/gl Low MCHC 31.4 LAB L100.1810 11.6-14.6 % High RDW CV 17.0 LAB L100.1820 35.1-43.9 fl High RDW SD 58.6 LAB L100.1900 150-450 K/mm3 Normal PLT 188 LAB L100.2000 6.2-12.0 fl Normal MPV 10.2 LAB L100.2100 47-70 % High NEUT% 94.4 LAB L100.2200 19-41 % Low LY% 4.0 LAB L100.2300 0-10 % Normal MONO% 0.9 LAB L100.2400 0-5 % Normal EO% 0.0 LAB L100.2500 0-1 % Normal BASO% 0.0 LAB L100.2550 0.0-0.9 % Normal IM GRAN % 0.700 Result Comment: IG% - Immature Granulocytes (promyelocytes, myelocytes and metamyelocytes) > 1% indicates that a LEFT SHIFT is Present. LAB L100.2620 2.0-7.7 X10 3/uL Normal Absolute Neut 5.2 LAB L100.2720 0.83-4.51 X10 3/ul Low Absolute Lymph 0.22 LAB L100.4500 Normal SMEAR COMMENT SCANNED Result Comment: SLIGHT LYMPHOPENIA NOTED Performed By: #### L100.0100 #### [facility] [address] [place], [place], [address] BEDSIDE GLUCOSE Collected: 01/20/2018 Status: F Source: [place] 2:21 AM [facility] [place] [facility] TYPE CODE TESTS RESULT OUT OF REFERENCE UNITS RANGE LAB L501.080 70-110 mg/dL High BEDSIDE GLU 359 Result Comment: MANAGEMENT OF PATIENT CARE PER NURSING PROTOCOL Performed By: #### L501.080 #### [facility] Point of Care [address] [place] [address] M R STAPH AUREUS Collected: 01/19/2018 Status: F Source: [place]HER DNA BY PCR 6:15 PM [facility] [place] [place] [facility] TYPE CODE TESTS RESULT OUT OF RANGE REFERENCE UNITS LAB L8200.1100 Negative Normal MRSA Negative RESULT Performed By: #### L8200.1000 #### [facility] [address] [place], [address] BLOOD GASES BY CPS Collected: 01/19/2018 Status: F Source: [place] 5:09 PM [facility] [place] [place] [facility] TYPE CODE TESTS RESULT OUT OF RANGE REFERENCE UNITS LAB L9000.9990 Normal BLD GAS TYPE ART LAB L9001.1000 Normal SITE R Radial LAB L9001.1010 Normal LEX TEST NA LAB L9001.1050 O2 Normal Delivery Dev Bi / C PAP LAB L9001.1070 RR Normal 8 LAB L9001.1074 Normal FI02 40 LAB L9001.1088 Normal IPAP 18 LAB L9001.1090 Normal EPAP 11 LAB L9001.1104 Normal Results To ICU LAB L9001.1105 Normal Time Given 1708 LAB L9001.1110 7.35-7.45 Low pH - I-STAT 7.26 LAB L9001.1210 35-45 mmHg High alert pCO2 - ISTAT 70.0 LAB L9001.1310 75-100 mmHG Low PO2 I-STAT 66 LAB L9001.2300 22-26 mmol/L High HCO3 ISTAT 31.5 LAB L9001.2400 -2 to +2 mmol/L High BE ISTAT 5 LAB L9001.2415 mmol/L Normal TOTAL CO2 34 ISTAT LAB L9001.2425 95-99 % Low SO2 ISTAT 89 Performed By: #### L9000.0800 #### [facility] Point of Care [address] [place] [address] EMERGENCY DEPARTMENT Observed: 01/19/2018 Status: F Source: [place] SUMMARY 5:00 PM [facility] [place] [facility] Medical Records Department [address] [place] [address] Emergency Department Summary 01/19/18 0829 MR#: [id number] Acct: [id number] Name: MICHAEL GARCIA Rep #: [id number] : 1945 72 From: Rashawn Sotelo MD PCP: Mat Duffy MD Status: ADM IN - ER Visit Summary Date of Service: 01/19/18 Chief Complaint: Shortness of breath History of Present Illness: The patient is a 72 F history of insulin-dependent diabetes, CVA, COPD on 3-1/2 L of oxygen and end-stage renal disease dialysis. Patient went to dialysis this morning was short of breath and a 7 ER for evaluation. Patient currently is on BiPAP. is giving most of the history. He states that she has been short of breath since last night. They deny any fever. No nausea, vomiting or diarrhea. Physical Examination: Older female currently on BiPAP. Vital signs on 6 L she is 96% on 3 she is below 90. She is hypoxic. Temperature is pending. H EENT exam unremarkable. Neck nontender no JVD. No lymphadenopathy. Lungs labored breathing. Diminished bilaterally. No rales or rhonchi appreciated. Heart regular rhythm no murmur. Abdomen soft nontender. She is moving all 4 extremities. She has 1+ pitting edema both lower extremities. Equal symmetrical. Calves are nontender. No cords. Neurologically she is awake and alert without focal motor deficits. Test Results: A portable one view chronic changes with vascular congestion. CBC is white count 9 H AND H 9.6 and 31 which is her baseline chronic anemia. Electrolytes show normal anion gap. BUN and creatinine at 37 3.1 was consistent with her dialysis. Anion gap is 6 glucose of 303. Troponin normal. EKG sinus rhythm rate is 78 no acute abnormality. Blood gas shows a pH of 7.23 with a PCO2 of 75 and a PO2 of 64 respiratory failure consistent with CO2 retention and hypoxia. Patient will be started on aerosols and Solu-Medrol. Emergency Department Course and Treatment: Older female with shortness of breath and hypoxia. Treated with aerosols. Treatment Plan: I spoke to the hospitalist and patient will be admitted to the ICU. For respiratory failure and CO2 retention and respiratory acidosis. Disposition: Admission Impression: Acute shortness of breath with hypoxia due to COPD flare and respiratory failure Respiratory acidosis with CO2 retention. Chronic anemia End-stage renal disease dialysis. History of insulin-dependent diabetes. This note was generated with Dragon dictation software. It may contain incorrect words, spelling, and punctuation that were not noted in review of the chart prior to signing ED Disposition - Plan for ED Patient: Chief Complaint: Shortness of Breath Referrals: Mat Duffy MD [Primary Care Provider] - What to do if you have Problems For any increased pain, shortness of breath, bleeding, nausea or vomiting, chest pain, or any unexpected problems, contact your Primary Care Provider. Call [facility] ([phone]) or report to the closest Emergency Room. Call 911 if necessary. 01/19/18 1700 <Electronically signed by Rashawn Sotelo MD> Date Rashawn Sotelo MD Cosigner Signature (If Indicated): Date CC: Mat Duffy MD BEDSIDE GLUCOSE Collected: 01/19/2018 Status: F Source: [place]HER 4:30 PM [facility] [place] [place] [facility] TYPE CODE TESTS RESULT OUT OF REFERENCE UNITS RANGE LAB L501.080 70-110 mg/dL High BEDSIDE GLU 238 Result Comment: Dr Guadarrama Followed MANAGEMENT OF PATIENT CARE PER NURSING PROTOCOL Performed By: #### L501.080 #### [facility] Point of Care [address] [place] [address] HISTORY AND PHYSICAL Observed: 01/19/2018 Status: F Source: CHRISTOPHER EXAM 4:01 PM [facility] [place] [facility] Medical Records Department [address] [place] [address] History and Physical 01/19/18 1441 MR#: [id number] Acct: [id number] Name: MICHAEL GARCIA Rep #: [id number] : 1945 72 From: Irene Wilson MD PCP: Mat Duffy MD Status: ADM IN Y Location: ICU ICU02-1 History of Present Illness Date of Admission: 01/19/18 Chief Complaint: Shortness of breath The patient is a 72 year old F with past medical history of end-stage renal disease on hemodialysis, atrial fibrillation diabetes type 2, advanced COPD, chronic hypoxic respiratory failure and essential hypertension and history of cerebral bleed status post craniectomy. She presented for her hemodialysis today and was noted to be tachypneic and was therefore recommended to go to the emergency room for further evaluation. The patient was noted to be hypoxic and she was placed on BiPAP. Her chest x-ray showed pulmonary vascular congestion. When I saw her, she was alert and oriented to time place and person, she answered questions appropriately , she appeared to be respiratory distress. We are placing her in the ICU for further management. Past Medical History Past Medical History (Chronic Problems): Chronic Problems (Last Reviewed 01/01/18 @ 18:03 by Josi Hickman NP-C) Rheumatic mitral insufficiency (Chronic) Valvular heart disease (Chronic) End stage COPD (Chronic) Pulmonary hypertension (Chronic) HTN (hypertension) (Chronic) 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) S/P craniotomy (Chronic) For intracerebral hemorrhage Obesity (BMI 30.0-34.9) (Chronic) Morbid obesity (Chronic) CKD (chronic kidney disease) stage 3, GFR 30-59 ml/min (Chronic) Obstructive sleep apnea (Chronic) Untreated Type 2 diabetes mellitus (Chronic) History of cerebral hemorrhage (Chronic) Anemia (Chronic) Aortic stenosis, mild (Chronic) Mitral stenosis (Chronic) mild Stroke (Chronic) Hyperlipidemia (Chronic) Vitamin D deficiency (Chronic) Neuropathic pain (Chronic) Allergies No Known Allergies Allergy (Verified 01/01/18 12:32) Home Medications: Ambulatory Orders Medication Instructions Recorded Atorvastatin Calcium [Lipitor] 40 mg PO QHS 11/27/17 Clonidine HCl 0.1 mg PO TID 11/27/17 Surgical History: cholecystectomy, rotator cuff repair, - Smoking Status: Former smoker - *Family History Maternal History Items: Cancer, Diabetes, Renal Disease Paternal History Items: Diabetes, Heart Disease, Renal Disease Review of Systems Comment: All Systems were reviewed with pertinent positives mentioned in the HPI above. VTE Information - Inpt Only VTE Present on Admission: No VTE Mechan Device Prophylaxis: SCD's VTE Pharm Prophylaxis ordered?: Yes - Physical Exam General: Alert, Oriented x3 HEENT: Atraumatic Oral: Moist Mucosa Neck: Supple, No JVD Lungs: Clear to auscultation Cardiovascular: Regular rate, Normal S1, Normal S2 Abdomen: Bowel Sounds Present, Soft, Non Tender, Non-Distended Extremities: No edema Neurological: Cranial nerves II-XII grossly intact, Deep Tendon Reflexes 2+/4 and Symmetrical, Neuro grossly intact, Motor Exam 5/5 strength throughout Psych/Mental Status: Normal Affect Vital Signs Temp Pulse Resp BP Pulse Ox 97.5 F L 63 19 H 122/59 H 94 01/19/18 08:04 01/19/18 14:34 01/19/18 14:34 01/19/18 14:34 01/19/18 14:34 Oxygen Flow Rate (L/min) 6 Oxygen Delivery Method Bi-pap Weight: 89.1 kg Body Mass Index (BMI) 32.6 Finger Stick Blood Glucose 500 Laboratory Tests Past 24 Hrs Assessment/Plan 1. Acute respiratory failure superimposed on chronic respiratory failure with hypoxia; most likely due to acute pulmonary edema and acute COPD exacerbation, she is currently requiring BiPAP, we will continue and repeat ABGs in 30 minutes, pulmonary medicine will be consulted. 2. Acute COPD exacerbation; she will be placed on IV steroids and bronchodilator therapy , I do not feel she needs antibiotic therapy at this time. 3. End-stage renal disease on hemodialysis, her dialysis was canceled this morning and she was sent to the emergency room. [facility] has been consulted for urgent hemodialysis today. 4. atrial Fibrillation, chronic ; the patient is on Amiodarone, she is not on long-term anticoagulation due to history of cerebral bleed status post craniectomy. 5. Diabetes mellitus type 2; we will continue on her Lantus, we will place her on regular insulin sliding scale for glycemic spikes. 6. DVT Prophylaxis with subcutaneous heparin and SCDs. Code Visit Inpatient E AND M: [id number] Init Hosp L3 01/19/18 1601 <Electronically signed by Irene Wilson MD> Date Irene Wilson MD Cosigner Signature: Date (if applicable) CC: Irene Wilson MD; Mat Duffy MD Signed Observed: 01/19/2018 Status: F Source: [place]RISTOPHER INFLUENZA A+B (RAPID 3:17 PM [facility]) REPOSITORY FLU A/B Rapid Negative test results should be confirmed by culture. Order Rapid Viral Culture for Influenzae A+B ([id number]) if clinically indicated. Influenza Ag, Direct Presumptive NEGATIVE for Influenza A/B Antigen (See Note) Performed By: #### M101.0101 #### [facility] [address] [place], [address] BLOOD GASES BY CPS Collected: 01/19/2018 Status: F Source: CHRISTOPHER 12:56 PM [facility] REPOSITORY TYPE CODE TESTS RESULT OUT OF RANGE REFERENCE UNITS LAB L9000.9990 Normal BLD GAS TYPE ART LAB L9001.1000 Normal SITE R Radial LAB L9001.1010 Normal LEX TEST POS LAB L9001.1050 O2 Normal Delivery Dev Bi / C PAP LAB L9001.1070 RR Normal 25 LAB L9001.1074 Normal FI02 40 LAB L9001.1088 Normal IPAP 15 LAB L9001.1090 Normal EPAP 11 LAB L9001.1104 Normal Results To ED LAB L9001.1105 Normal Time Given 1249 LAB L9001.1110 7.35-7.45 Low pH - I-STAT 7.24 LAB L9001.1210 35-45 mmHg High alert pCO2 - ISTAT 75.4 LAB L9001.1310 75-100 mmHG Low PO2 I-STAT 64 LAB L9001.2300 22-26 mmol/L High HCO3 ISTAT 32.0 LAB L9001.2400 -2 to +2 mmol/L High BE ISTAT 4 LAB L9001.2415 mmol/L Normal TOTAL CO2 34 ISTAT LAB L9001.2425 95-99 % Low SO2 ISTAT 86 Performed By: #### L9000.0800 #### [facility] Point of Care [address] [place], [place] [address] CBC W/DIFF, AUTOMATED Collected: 01/19/2018 Status: F Source: CHRISTOPHER 8:45 AM [facility] REPOSITORY TYPE CODE TESTS RESULT OUT OF RANGE REFERENCE UNITS LAB L100.1000 4.4-11.0 K/mm3 Normal WBC 9.4 LAB L100.1200 4.2-5.4 M/mm3 Low RBC 3.10 LAB L100.1300 12.0-15.0 g/dl Low HGB 9.6 LAB L100.1400 37-47 % Low HCT 31.0 LAB L100.1500 81-99 fL High MCV 100.0 LAB L100.1600 27.0-32.0 pg Normal MCH 31.0 LAB L100.1700 32-36 g/gl Low MCHC 31.0 LAB L100.1810 11.6-14.6 % High RDW CV 17.1 LAB L100.1820 35.1-43.9 fl High RDW SD 61.4 LAB L100.1900 150-450 K/mm3 Normal PLT 193 LAB L100.2000 6.2-12.0 fl Normal MPV 9.0 LAB L100.2100 47-70 % High NEUT% 88.5 LAB L100.2200 19-41 % Low LY% 4.7 LAB L100.2300 0-10 % Normal MONO% 4.9 LAB L100.2400 0-5 % Normal EO% 0.8 LAB L100.2500 0-1 % Normal BASO% 0.1 LAB L100.2550 0.0-0.9 % High IM GRAN % 1.000 Result Comment: IG% - Immature Granulocytes (promyelocytes, myelocytes and metamyelocytes) > 1% indicates that a LEFT SHIFT is Present. LAB L100.2620 2.0-7.7 X10 3/uL High Absolute Neut 8.4 LAB L100.2720 0.83-4.51 X10 3/ul Low Absolute Lymph 0.44 LAB L100.4500 Normal SMEAR COMMENT COMMENT Result Comment: SLIDE SCANNED - LYMPHOPENIA NOTED. Performed By: #### L100.0100 #### [facility] [address] [place], [address] BASIC METABOLIC Collected: 01/19/2018 Status: F Source: CHRISTOPHER PROFILE (BMP) 8:45 AM [facility] REPOSITORY Order Comment: 'TROP' Serial specimen #1, #2, #3, or #4: 1 TYPE CODE TESTS RESULT OUT OF RANGE REFERENCE UNITS LAB L501.0100 74-106 mg/dL High GLU 303 Result Comment: Glucose result greater than or equal to 200 mg/dL suggests DIABETES MELLITUS per A.D.A. criteria. Please note revised GLUCOSE reference range effective 2017. LAB L501.1000 7-18 mg/dL High BUN 37 LAB L501.1100 0.55-1.02 mg/dL High CREAT,SERUM 3.17 Result Comment: The validity of the calculated GFR AND GFRAA in patients over 70 years has not been determined. Clinical correlation is essential. LAB L501.1110 >60 mL/min Low EST GFR 15 Result Comment: Non- GFR Calc LAB L501.1115 >60 mL/min Low EST GFR - AA 19 Result Comment: GFR Calc LAB L501.1255 ml/min Normal Estimated CRCL 14.86 LAB L501.1300 10-20 RATIO Normal BUN/CRE 11.7 LAB L501.2200 8.5-10 mg/dL Low .1 CA 8.1 LAB L501.5300 136-14 mmol/L Low 5 NA 131 LAB L501.5600 3.5-5. mmol/L Normal 1 K 4.7 LAB L501.5900 98-107 mmol/L Low CL 93 LAB L501.6100 21.0-3 mmol/L Normal 2.0 CO2 32.0 LAB L501.6200 5-15 Normal GAP 6 Performed By: #### L500.2500, L501.4010 #### [facility] [place], [address] TROPONIN-I Collected: 01/19/2018 Status: F Source: [place] 8:45 AM [facility] REPOSITORY Order Comment: 'TROP' Serial specimen #1, #2, #3, or #4: 1 TYPE CODE TESTS RESULT OUT OF RANGE REFERENCE UNITS LAB L501.4010 <0.06 ng/mL Normal < 0.02 TROPONIN-I Result Comment: TROPONIN-I EXPECTED VALUES <0.05 NEGATIVE 0.06 - 0.59 AT RISK OF SC > OR = 0.60 SUGGEST SC Performed By: #### L500.2500, L501.4010 #### [facility] [address] [place], [address] CHEST 1 VIEW Observed: 01/19/2018 Status: F Source: [place] (PORTABLE) 8:26 AM [facility] REPOSITORY [facility] Imaging Services [address] [place] [address] Chest 1 View (Portable) MR#: [id number] Acct: [id number] Name: MICHAEL GARICA Rep #: [id number] : 1945 F 72 From: Regulo Tang MD PCP: Mat Duffy MD Status: REG ER Study: Chest 1 View (Portable) Date of Exam: 01/19/18 Exam# [id number] Ordering Dr: Rashawn Sotelo MD STUDY: X-RAY CHEST REASON FOR EXAM: Female, 72 years old. Dialysis catheter not functioning TECHNIQUE: Single AP portable view of the chest. COMPARISON: 12/08/2017 FINDINGS: EKG leads overlie the chest. Stable appearance of the previously noted left dialysis catheter. No kink or fracture noted. Lungs are underexpanded with superimposed interstitial edema not seen on the previous study. The borders of the pulmonary markings are shaggy and ill-defined. Persistent evidence of chronic bronchitis, stable left pleural effusion. Stable cardiomegaly. Normal mediastinum and jose f. Normal visualized pulmonary arteries. Normal visualized aortic arch and descending thoracic aorta. There are diffuse degenerative changes of the visualized thoracic spine. Normal visualized ribs, clavicles, and shoulders. There is no demonstrated abnormality of the visualized soft tissue structures of the upper abdomen. RAD/Chest 1 View (Portable) IMPRESSION: No plain film evidence of abnormality in the visualized dialysis catheter Increase in interstitial edema since the previous study, follow-up recommended to assure resolution Persistent plain film evidence of chronic bronchitis Stable cardiomegaly Electronically Signed: Delonte Tang MD at 8:58 EDT , Service support , CC: Rashawn Sotelo MD; Mat Duffy MD Business Support Administrator: Signed TYPE AND SCREEN Collected: 01/07/2018 Status: F Source: [place] 12:55 PM [facility] REPOSITORY Order Comment: PRETRANSFUSION HGB = 6.4 HCT = 19.2 PERFORMED AT [facility] CMV NEG?* N Give When? When Ready Irradiated? N Leukodepleted? Y Reason for Type AND Screen/Red Cells: ANEMIA TYPE CODE TESTS RESULT OUT OF RANGE REFERENCE UNITS LAB B10.0800 O Normal BLOOD TYPE GEL POSITIVE LAB B100.4000 Normal Antibody NEGATIVE Screen Performed By: #### B101.7450 #### [facility] [address] [place], [address] Collected: 01/07/2018 Status: F Source: [place] 12:55 PM [facility] REPOSITORY TYPE CODE TESTS RESULT OUT OF REFERENCE UNITS RANGE LAB U100.0000 [id number] TRANSFUSED PRODUCT: T AND S with Crossmatch, Red Cells COUNT: 2 Performed By: #### U100.0000 #### [facility] - refer to report for specific site PROGRESS Observed: 01/05/2018 Status: COMPLETED Source: [place] 2:32 PM [facility] REPOSITORY HNO ID: [id number] Author: Simin Villarreal Service: (none) Author Type: Registered Nurse Type: Progress Notes Filed: 01/23/2018 3:17 PM Note Text: PRIMARY CARE COORDINATION FOLLOW-UP NOTE Provider Action/FYI Need help with Lantus and Novolog ordered. They have reached donut hole already. Patient identified by name and date of . YES Spoke to patient and spouse Summary: stating that insulin will cost $1000 since they are in donut hole already. Asking for help with medications. Will seek help of and [facility] to find meds for [employer]. plan. Concerns: Unable to afford insulin ordered. All Terrain Vehicle Technician plan for next outreach: Will follow up as needed Signature Simin Villarreal patient care assistant Lidar Technician Internal [facility] January 05, 2018 CNPTOUTREACH Observed: 01/05/2018 Status: COMPLETED Source: [place] 12:00 AM [facility] REPOSITORY Patient Outreach (INTMWS) MICHAEL GARCIA ([id number]) 1945 F BLD Date Time Provider Department 01/05/18 SIMIN AQUINOWS During your visit today, we recorded the following information about you: Simin Duarte RN 01/23/2018 3:17 PM Signed PRIMARY CARE COORDINATION FOLLOW-UP NOTE Provider Action/FYI Need help with Lantus and Novolog ordered. They have reached [facility] already. Patient identified by name and date of . YES Spoke to patient and spouse Summary: stating that insulin will cost $1000 [address] they [address] in [facility] already. Asking for help with medications. Will seek help of and [facility] to find meds for [employer]. plan. Concerns: Unable to afford insulin ordered. All Terrain Vehicle Technician plan for next outreach: Will follow up as needed Signature Simin Villarreal RN Ambulatory Lidar Technician [facility] January 05, 2018 Allergies As of Date: 01/05/2018 (No Known Allergies) Date Reviewed: 12/23/2017 Reviewed by: Cindy Limon LPN - Fully Assessed Reason for Visit: Lidar Technician Chronic Care [2621] Prescriptions as of 01/05/2018 Sig: HYDRALAZINE 100 MG TABLET Take 1 tablet by mouth three * CLONIDINE HCL 0.1 MG TABLET TAKE 1 TABLET THREE TIMES ESEQUIEL* AMIODARONE 200 MG TABLET Take 200 mg by mouth once esequiel* ASPIRIN 325 MG TABLET,DELAYED* Take 325 mg by mouth daily wi* FERREX 150 MG IRON CAPSULE Take 1 capsule by mouth once * PANTOPRAZOLE 40 MG TABLET,DEL* Take 1 tablet by mouth once d* LANTUS SOLOSTAR U-100 INSULIN* INJECT 39 UNITS SUBCUTANEOUS* NOVOLOG FLEXPEN U-100 INSULIN* INJECT 4 TIMES DAILY DIREC* COMPOUNDED PRESCRIPTION Portable oxygen Dx: Hypoxemia* ERGOCALCIFEROL (VITAMIN D2) 5* Take 1 capsule by mouth once * GABAPENTIN 300 MG CAPSULE Take 1 capsule by mouth daily* METOPROLOL SUCCINATE ER 25 MG* Take 1 tablet by mouth once d* ATORVASTATIN 40 MG TABLET Take 1 tablet by mouth daily * Problem List As Of Date 01/05/2018 Noted Resolved 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 Essential hypertension with goal blood pressure*INVALID FOR* Ischemic ulcer of finger with necrosis of muscl*INVALID FOR*05/05/2017 More... 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] INVALID FOR* CKD (chronic kidney disease) stage 3, GFR 30-59*INVALID FOR* Hypoxemia [R09.02] INVALID FOR* Acute diastolic CHF (congestive heart failure) *INVALID FOR* Anemia in stage 3 chronic kidney disease [N18.3*INVALID FOR* JORGE (acute kidney injury) (HCC) [N17.9] INVALID FOR* Acute renal failure on dialysis (HCC) [N17.9, Z*INVALID FOR* Encounter Status:Closed by SIMIN VILLARREAL on 01/23/18 PULMONARY VISIT REPORT Observed: 01/01/2018 Status: F Source: [place] 6:15 PM [facility] REPOSITORY [facility] [address] [place] [address] OFFICE VISIT Date of Service: 01/01/18 MR#: [id number] Acct: [id number] Name: GARCIAMICHAEL Rose Rep #: [id number] : 1945 Provider: Josi Hickman Age/Sex: 72/F Location: [facility] Status: Signed Assessment AND Plan 1. INES (obstructive sleep apnea) G47.33 Status Chronic Plan Encourage patient to replace her cushion and increase her compliance. Discussed the benefits of treating her sleep apnea and the comorbid illnesses that it would impact. She conveys understanding and is agreeable to become compliant. Follow- up with Dr. Valencia in 3 months. 2. CKD (chronic kidney disease) stage 3, GFR 30-59 ml/min N18.3 Status Chronic Plan Now on dialysis. Defer management to nephrology. Fluid volume status optimization is essential. Follow-up with Dr. Valencia in 3 months. 3. Pulmonary hypertension I27.20 Status Chronic Plan Continue supplemental oxygen as indicated to maintain saturations 89-92%. She is currently using and benefiting from supplemental oxygen. Encouraged her that compliance with her BiPAP would improve her shortness of breath during the day. 4. End stage COPD J44.9 Status Chronic Plan Carries a diagnosis of COPD yet has not had pulmonary function tests. She is agreeable to obtaining a complete pulmonary function test to identify if in fact she has COPD and to quantify it. No changes in maintenance medications until PFT can be obtained. Plan to review results with Dr. Valencia at the 3 month follow-up. She has been encouraged to contact the office if she has any new or worsening symptoms in the meantime. Orders Orders: Plan Detail Follow Up 3 Months ([facility]) [facility] f/u: Chief Complaint: Shortness of breath [facility] Comments Details: This is a 72 year old very pleasant f, currently under the care of Mat Duffy, here to follow up after a recent hospitalization at [facility], from November 27, 2017 through December 09, 2017 for paroxysmal atrial fibrillation and acute kidney injury. The hospital stay was complicated by acute renal failure requiring the placement of a temporary dialysis catheter and hemodialysis. 15 pages of hospital documentation was reviewed, and found to be significant for a chest x-ray completed on November 27 showing possibly enlarged heart, chest x-ray completed on December 08 showing stable cardiomegaly with diffuse interstitial pattern. Upon discharge, the patient treated with Lasix 60 mg daily today, she presents in a wheelchair, on nasal cannula oxygen and accompanied by her . He described several hospitalizations over the past 3 months. She states that basically every other week she has been admitted to the hospital. She is has been able to have approximately 8 hemodialysis treatments. She reports that at least 2-3 treatments were only half treatments because of low problems with her tunneled dialysis catheter. She reports that her breathing is back to normal. Her legs have reduced significantly with regard to swelling. She continues to require supplemental oxygen at 3.5 L at all times. Continues to have shortness of breath on exertion. Denies any shortness of breath with conversation or at rest. She denies any chest pain or palpitations. She denies any cough, wheezing or chest tightness. She denies any fever, chills or body aches. See complete review of systems. She is compliant with her BiPAP, but admits that she likely requires a cushion replacement. She does report feeling rested in the morning. She denies any episodes of nocturia. She does admit to occasional air leaks that make too much noise. Intake Vital Signs01/01/18 Height 5 ft 5 in 01/01/18 Weight: 200 lb 01/01/18 Body Mass Index (BMI) 33.3 01/01/18 Blood Pressure 122/66 Intake Visit Reasons: hospital f/u Chief Complaint: Chest pain/not feeling well Accompanied by: Allergies No Known Allergies Allergy (Verified 01/01/18 12:32) Medications Atorvastatin Calcium [Lipitor] 40 mg PO QHS 11/27/17 [History Confirmed 01/01/18] Clonidine HCl 0.1 mg PO TID 11/27/17 [History Confirmed 01/01/18] Ergocalciferol [Vitamin D] 50,000 unit PO QMONTH 11/27/17 [History Confirmed 01/01/18] Furosemide [Lasix] 60 mg PO DAILY 11/27/17 [History Confirmed 01/01/18] Gabapentin [Neurontin] 300 mg PO QHS 11/27/17 [History Confirmed 01/01/18] Insulin Aspart [Novolog Flexpen] units SC 11/27/17 [History Confirmed 01/01/18] Iron Polysaccharide Complex [Ferrex 150] 150 mg PO DAILYCM 11/27/17 [History Confirmed 01/01/18] Metoprolol Succinate [Toprol Xl] 25 mg PO DAILY 11/27/17 [History Confirmed 01/01/18] Pantoprazole Sodium [Protonix] 40 mg PO DAILY 11/27/17 [History Confirmed 01/01/18] Amiodarone HCl [Cordarone] 200 mg PO DAILY #30 tab 12/09/17 [Rx Confirmed 01/01/18] Aspirin E.C. [Ecotrin] 325 mg PO DAILY@0800 #30 tab 12/09/17 [Rx Confirmed 01/01/18] [facility] Medical History Rheumatic mitral insufficiency (Chronic) HTN (hypertension) (Chronic) 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) Obesity (BMI 30.0-34.9) (Chronic) Morbid obesity (Chronic) CKD (chronic kidney disease) stage 3, GFR 30-59 ml/min (Chronic) Obstructive sleep apnea (Chronic) Type 2 diabetes mellitus (Chronic) History of cerebral hemorrhage (Chronic) Anemia (Chronic) Aortic stenosis, mild (Chronic) Mitral stenosis (Chronic) Stroke (Chronic) Hyperlipidemia (Chronic) Vitamin D deficiency (Chronic) Neuropathic pain (Chronic) Aortic stenosis (Chronic) Bradycardia (Chronic) Cerebral hemorrhage (Chronic) Depression (Chronic) Dyspnea (Chronic) History of Coumadin therapy (Chronic) Left atrial enlargement (Chronic) Legally blind (Chronic) Lung nodule (Chronic) Palpitations (Chronic) Rheumatic mitral stenosis (Chronic) Wheezing (Chronic) Surgical History S/P craniotomy (Chronic) Family History Mother Cancer Diabetes Kidney disease Father Heart disease Diabetes Kidney disease Social History Smoking Status: Never smoker Review of Systems Const CONSTITUTIONAL: Positive fatigue and headache(s); negative anorexia, body ache, chills, daytime sleepiness, fever(s), night sweats, oral thrush, stops breathing during sleep, weight loss, sleeping in chair, weight loss, weight gain, frequent colds, seasonal allergies, other or orthopnea EETM Ear Nose Throat Mouth: Positive hearing normal, hoarseness, dry mouth in morning, headache(s), nasal congestion, nasal discharge, sinus pain and sinus pressure; negative hard of hearing, change in vision, itchy eyes, eye pain, swallowing Difficulty, ear pain, nose bleed, mouth pain, post nasal drip, sore throat or other Cardio Cardiovascular: Positive edema Location: lower extremity; negative chest pain, chest pain at rest, chest pain with activity, irregular heart rhythm, shortness of breath when lying down, palpitations, murmur or other Resp Respiratory: Positive as per HPI and shortness of breath shortness of breath: Positive with activity and lying down; negative pain with cough, wheezing, chest congestion, cough, chest tightness, pain on inspiration, inhalers, increase use of rescue inhalers, snoring, apnea or other Gastro Gastrointestional: Negative bloody stools, change in appetite, difficulty swallowing, reflux, hematemesis, melena stool, loose stool, constipation or other Genitourinary: Negative blood in urine, nocturia, pain with urination or other Musc Musculoskeletal: Negative body pain, back pain, neck pain or other Skin/Breast Skin/Breast: Negative dry skin, itching, rash, unusual bruising, breast lump or other Neuro Neurological: Positive weakness; negative restless legs, confusion or other Psych Psychocological: Negative abnormal sleep pattern, anxiety, thoughts of hurting self/others, hopelessness or other Lymph Lymphatic: Negative easy bleeding, easy bruising, swollen lymph nodes or other Exam Const Constitutional: Positive conversant, cooperative, in no acute respiratory distress, well developed, well nourished, good hygiene, frail appearing, wearing supplemental oxygen and obese Head Head: Positive normocephalic and atraumatic; negative cyanosis of lips/distal nose Eyes Eye: Positive clear conjunctiva and nystagmus; negative scleral abnormality Ears Ear: Positive hearing normal and external ears normal; negative hard of hearing Nose Nose: Positive external nose normal and no nasal discharge; negative epistaxis Mouth Mouth: Positive oral mucosae normal, good dentition, no lesions and crowded posterior oropharynx; negative post nasal drip, oral thrush present or malodorous breath Mallampati Score: III: Mallampati Score Neck Neck: Positive normal visual inspection, full ROM, trachea midline, thick neck and female neck greater than 37 cm (15 in); negative lymphadenopathy, JVD or tender Chest Wall Chest: Positive normal inspection of the chest and symmetric chest movement; negative increased A/P diameter Resp lung sounds: Positive clear to auscultation, diminished, normal expiratory time and normal respiratory effort; negative wheezes, wheeze present on forced exhalation, rhonchi, rales or dullness to percussion Cardio Cardiac: Positive regular rate, S1 normal, regular rhythm and S2 normal; negative murmur GI GI: Positive normal to inspection, normal bowel sounds and obese; negative distended Genitourinary: Positive deferred Musc Musculoskeletal: Positive ROM normal, kyphosis and in a wheelchair; negative scoliosis Skin Pulmonary Skin Exam: Positive intact; negative rash, lesion, ulcers, erythema, scaly or dermal atrophy Pulses Pulse: Yes pulses normal x4 extremities Extremities Extremities: Yes edema Location: lower extremity location: Bilateral pitting +2, Yes capillary refill normal, No clubbing, No cyanosis, No stasis dermatitis Neuro Neurologic: Yes conversant, Yes no focal neuro deficits, Yes cooperative, Yes normal cognition, Yes normal coordination, Yes normal concentration, Yes understands questions Lymph Lymphatic: No lymphadenopathy, No tenderness, No cervical adenopathy, No axillary adenopathy Psych Appearance: Positive grossly normal, eye contact and well kempt Mental Status: Positive mental status grossly normal Mood: Positive congruent mood Affect: Positive normal affect Coding Level of Care Code Off vis,est,level 4 Diagnoses INES (obstructive sleep apnea) G47.33 CKD (chronic kidney disease) stage 3, GFR 30-59 ml/min N18.3 Pulmonary hypertension I27.20 End stage COPD J44.9 01/01/18 1815 <Electronically signed by Josi JENSEN> Date Josi JENSEN Cosigner Signature: Date (if applicable) CC: Mat Duffy MD PROGRESS Observed: 12/23/2017 Status: COMPLETED Source: [place] 11:37 AM [facility] HNO ID: [id number] Author: Reny (Offc Spec) Older, JAVIER.JULIO C Service: (none) Author Type: Nurse Practitioner Type: Progress Notes Filed: 12/23/2017 1:08 PM Note Text: CC: Patient presents with: Hospital F/U: was at [facility] for renal failure HPI Michael Garcia is a 72 year old female who presents today for hospital follow-up/TCM encounter. Reason for visit: Admitted from child support agent office for elevated PANCA, concern JORGE on CKD due to vasculitis Which facility: [facility] Date of visit: 12/12/17 to 12/17/17 Diagnosis: JORGE on CKD, requiring dialysis 3 times a week on //; etiology unknown Testing done: kidney biopsy-negative for vasculitis, echocardiogram-EF 65%, Chest q-njl-orsakgpns venous congestion, CBC-anemia Treatment given: Dialysis, 2 units of blood Current symptoms: Feeling okay but reports chest burning and tremors whenever she wears CPAP. This started during admission, attributes to increase settings. Unsure of why settings were changed. Denies chest pain, heart palpitations, worsening SOB or leg swelling. Appetite is normal for her. On fluid restriction but drinking as much as she is allowed. Denies any other concerns or issues today. Has appointment in a couple weeks with child support agent. Going to dialysis MW. States she is tolerating it but has not had full dialysis session, they told her it was because her kidneys can't handle it. Dialysis catheter left chest working fine. No pain, redness or swelling around site. Checking blood sugars daily, less than 200. Denies any low readings. REVIEW OF SYSTEMS General: no fevers, no chills, no change in energy and no significant changes in weight Respiratory: no cough, no wheezing GI: Negative for abdominal discomfort, blood in stools or black stools, change in bowel habit, nausea, vomiting PAST MEDICAL HISTORY Diagnosis Date - Cerebellar hemorrhage, acute (HCC) 04/04/2016 - CKD (chronic kidney disease) stage 3, GFR 30-59 ml/min 04/04/2016 - CREST variant of scleroderma ([facility]) 04/04/2016 - Diabetic peripheral neuropathy associated with type 2 diabetes mellitus (HCC) 01/19/2016 - Essential hypertension with goal blood pressure less than 130/85 01/19/2016 - Hyperlipidemia 01/19/2016 - Ischemic ulcer of finger with necrosis of muscle ([facility]) 01/19/2016 Left 3rd finger tip - Lazy eye of left side 1950s - Legally blind 01/19/2016 - Primary osteoarthritis of right knee 01/19/2016 - Retinal hemorrhage of right eye 2007 - S/P craniotomy 04/04/2016 - Type 2 diabetes mellitus with renal manifestations (HCC) 01/19/2016 Dr. Romeo, nephrology - Umbilical hernia without obstruction and without gangrene 01/19/2016 PAST SURGICAL HISTORY Procedure Laterality Date - ACHILLES TENDON SURGERY HX Right 1995 - BREAST BIOPSY CORE Left 2013 benign - COLONOSCOP W/ OR W/O [facility] SPEC 10/27/2017 Colonoscopy w/bx [facility] - EGD W/O OR W/BRUSH/WASH 10/27/2017 EGD w/bx [facility] - LAPAROSCOPIC CHOLEYCYSTECTOMY Cholecystectomy, lap - REMOVAL OF TONSILS,<14 Y/O 1974 Tonsillectomy - REPAIR ROTATOR CUFF,ACUTE Right 1986 - REVISE MEDIAN N/CARPAL TUNNEL SURG Right 1989 - REVISE ULNAR NERVE AT ELBOW Right 1989 ALLERGIES Review of patient's allergies indicates no known allergies. MEDICATIONS amiodarone (PACERONE) 200 mg tablet Take 200 mg by mouth once daily. aspirin, enteric coated (ECOTRIN) 325 mg EC tablet Take 325 mg by mouth daily with breakfast. FERREX 150 150 mg iron capsule Take 1 capsule by mouth once daily. pantoprazole DR (PROTONIX) 40 mg tablet Take 1 tablet by mouth once daily. LANTUS SOLOSTAR 100 unit/mL (3 mL) inpn INJECT 39 UNITS SUBCUTANEOUSLY TWICE DAILY NOVOLOG FLEXPEN 100 unit/mL inpn INJECT 4 TIMES DAILY DIRECTED. GLUCOSE LESS THAN 150 = 0 U; 150-199=2 U; 200-249=4 U; 250-299=6 U; 300-349=8 U; >350=10 U COMPOUNDED PRESCRIPTION Portable oxygen Dx: Hypoxemia. R09.02. 3 LPM via NC continuous. ergocalciferol, vitamin D2, (VITAMIN D) 50,000 unit capsule Take 1 capsule by mouth once every month. gabapentin (NEURONTIN) 300 mg capsule Take 1 capsule by mouth daily at bedtime. hydrALAZINE (APRESOLINE) 100 mg tablet Take 1 tablet by mouth three times daily. cloNIDine HCl (CATAPRES) 0.1 mg tablet Take 1 tablet by mouth three times daily. metoprolol succinate ER (TOPROL XL) 25 mg 24 hr tablet Take 1 tablet by mouth once daily. atorvastatin (LIPITOR) 40 mg tablet Take 1 tablet by mouth daily at bedtime. For cholesterol. albuterol HFA (VENTOLIN HFA) 90 mcg/actuation inhaler Inhale 2 Puffs as instructed every 4 hours as needed for Wheezing/Shortness of Breath. FAMILY HISTORY Problem Relation Age of Onset - Cancer Mother lung - Coronary Artery Disease Father 63 - Breast Cancer Sister - Diabetes Maternal Grandmother Social History Substance Use Topics - Smoking status: Never Smoker - Smokeless tobacco: Never Used - Alcohol use 1.5 oz/week 1 Cans of Beer (12oz) per week Comment: ocas PHYSICAL EXAM BP 136/68 (BP Site: Left Arm, BP Position: Sitting, BP Cuff Size: Large Adult) Pulse 64 Temp 36.9 ?C (98.4 ?F) Resp 20 Wt 95.3 kg (210 lb) SpO2 93% BMI 34.95 kg/m2 General Appearance: in no acute distress, alert, obese, appears fatigued Pysch: mood and affect flat and restricted Eyes: conjunctiva pink and moist, no icterus, sclera white, non-injected Oropharynx: moist Lungs: Lungs diminished throughout but clear to auscultation. No wheezing, rhonchi, rales Heart: RRR without murmur, gallop, or rubs. No ectopy, Heart sounds distant Abdomen: Abdomen soft, obese. Bowel sounds normal. No tenderness with palpation. Ext: 1+ pitting edema to bilateral lower legs and 2+ to bilateral hands, R>L, good distal pulses Component Latest Ref Rng AND Units 12/16/2017 12/17/2017 WBC 3.98 - 10.04 thou/cmm 4.80 4.62 RBC 3.93 - 5.22 mil/cmm 2.70 (L) 2.54 (L) HGB 11.2 - 15.7 g/dL 7.8 (L) 7.3 (L) Hematocrit 34.1 - 44.9 % 25.5 (L) 25.2 (L) MCV 79.4 - 94.8 fl 94.4 99.2 (H) MCH 25.6 - 32.2 pg 28.9 28.7 MCHC 31.6 - 34.8 % 30.6 (L) 29.0 (L) RDW 11.7 - 14.4 % 15.7 (H) 15.6 (H) RDW-SD 36.4 - 46.3 fl 54.0 (H) 55.9 (H) Platelet Count 182 - 369 thou/cmm 126 (L) 126 (L) MPV 9.4 - 12.3 fl 9.7 9.9 Sodium 136 - 145 mEq/L 136 139 Potassium 3.5 - 5.1 mEq/L 4.3 4.5 Chloride 98 - 107 mEq/L 100 103 CO2 21 - 32 mEq/L 30 31 Glucose 70 - 99 mg/dL 206 (H) 238 (H) BUN 7 - 18 mg/dL 48 (H) 54 (H) Creatinine 0.51 - 0.95 mg/dL 2.92 (H) 2.93 (H) Calcium 8.5 - 10.1 mg/dL 8.2 (L) 8.4 (L) Anion Gap 8 - 16 10 10 eGFR >60mL/min/1.73m2 15.91 15.85 ASSESSMENT/PLAN: 1. Acute renal failure on dialysis (HCC) - ICD9: 584.9, V45.11, ICD10: N17.9, Z99.2 (primary diagnosis) Patient doing fairly well Continue with dialysis and labs as ordered Follow-up with child support agent Follow-up with PCP sooner than appointment scheduled in February 2. Anemia in chronic kidney disease, unspecified CKD stage - ICD9: 285.21, ICD10: N18.9, D63.1 Continue to monitor CBC. Will be managed by nephrology 3. INES on CPAP - ICD9: 327.23, V46.8, ICD10: G47.33, Z99.89 Unclear why settings were changed. database development project manager will contact [employer] and patient's rabble furnace tender concerning patient's symptoms 4. Generalized edema - ICD9: 782.3, ICD10: R60.1 Likely secondary to renal failure. Patient states right hand has been swollen due to recent injury for which she has been going to PT Prescription instructions reviewed with patient as applicable. Potential red flag symptoms discussed with the patient. Reviewed appropriate action plan to take if red flag symptoms occur. Patient agreeable to treatment plan. Reny Banda APRN.JULIO C CNOV Observed: 12/23/2017 Status: COMPLETED Source: [place] 11:20 AM [facility] Office Visit (INTMWS) MICHAEL GARCIA ([id number]) 1945 F BLD Date Time Provider Department 12/23/17 11:20 AM OLDER, RENY (JULIO C) INTMWS During your visit today, we recorded the following information about you: Temperature Pulse Respiration Blood pressure 98.4 degrees 64/minute 20/minute 136/68 Weight 95.3 kg Reny Older, RODOLFO REYNOLDS 12/23/2017 1:08 PM Signed CC: Patient presents with: Hospital F/U: was at [facility] for renal failure HPI Michael Garcia is a 72 year old female who presents today for hospital follow-up/TCM encounter. Reason for visit: Admitted from child support agent office for elevated PANCA, concern JORGE on CKD due to vasculitis Which facility: [facility] Date of visit: 12/12/17 to 12/17/17 Diagnosis: JORGE on CKD, requiring dialysis 3 times a week on /W/; etiology unknown Testing done: kidney biopsy-negative for vasculitis, echocardiogram- EF 65%, Chest t-pml-newxrdxam venous congestion, CBC-anemia Treatment given: Dialysis, 2 units of blood Current symptoms: Feeling okay but reports chest burning and tremors whenever she wears CPAP. This started during admission, attributes to increase settings. Unsure of why settings were changed. Denies chest pain, heart palpitations, worsening SOB or leg swelling. Appetite is normal for her. On fluid restriction but drinking as much as she is allowed. Denies any other concerns or issues today. Has appointment in a couple weeks with child support agent. Going to dialysis MW. States she is tolerating it but has not had full dialysis session, they told her it was because her kidneys can't handle it. Dialysis catheter left chest working fine. No pain, redness or swelling around site. Checking blood sugars daily, less than 200. Denies any low readings. REVIEW OF SYSTEMS General: no fevers, no chills, no change in energy and no significant changes in weight Respiratory: no cough, no wheezing GI: Negative for abdominal discomfort, blood in stools or black stools, change in bowel habit, nausea, vomiting PAST MEDICAL HISTORY Diagnosis Date - Cerebellar hemorrhage, acute (HCC) 04/04/2016 - CKD (chronic kidney disease) stage 3, GFR 30-59 ml/min 04/04/2016 - CREST variant of scleroderma (HCC) 04/04/2016 - Diabetic peripheral neuropathy associated with type 2 diabetes mellitus (HCC) 01/19/2016 - Essential hypertension with goal blood pressure less than 130/85 01/19/2016 - Hyperlipidemia 01/19/2016 - Ischemic ulcer of finger with necrosis of muscle (HCC) 01/19/2016 Left 3rd finger tip - Lazy eye of left side 1950s - Legally blind 01/19/2016 - Primary osteoarthritis of right knee 01/19/2016 - Retinal hemorrhage of right eye 2007 - S/P craniotomy 04/04/2016 - Type 2 diabetes mellitus with renal manifestations ([facility]) 01/19/2016 Dr. Romeo, nephrology - Umbilical hernia without obstruction and without gangrene 01/19/2016 PAST SURGICAL HISTORY Procedure Laterality Date - ACHILLES TENDON SURGERY HX Right 1995 - BREAST BIOPSY CORE Left 2013 benign - [facility] 10/27/2017 Colonoscopy w/bx [facility] - EGD W/O OR W/BRUSH/WASH 10/27/2017 EGD w/bx [facility] - LAPAROSCOPIC CHOLEYCYSTECTOMY Cholecystectomy, lap - REMOVAL OF TONSILS,ANDlt;14 Y/O 1974 Tonsillectomy - REPAIR ROTATOR CUFF,ACUTE Right 1986 - REVISE MEDIAN N/CARPAL TUNNEL SURG Right 1989 - REVISE ULNAR NERVE AT ELBOW Right 1989 ALLERGIES Review of patient's allergies indicates no known allergies. MEDICATIONS amiodarone (PACERONE) 200 mg tablet Take 200 mg by mouth once daily. aspirin, enteric coated (ECOTRIN) 325 mg EC tablet Take 325 mg by mouth daily with breakfast. FERREX 150 150 mg iron capsule Take 1 capsule by mouth once daily. pantoprazole DR (PROTONIX) 40 mg tablet Take 1 tablet by mouth once daily. LANTUS SOLOSTAR 100 unit/mL (3 mL) inpn INJECT 39 UNITS SUBCUTANEOUSLY TWICE DAILY NOVOLOG FLEXPEN 100 unit/mL inpn INJECT 4 TIMES DAILY DIRECTED. GLUCOSE LESS THAN 150 = 0 U; 150-199=2 U; 200-249=4 U; 250-299=6 U; 300- 349=8 U; ANDgt;350=10 U COMPOUNDED PRESCRIPTION Portable oxygen Dx: Hypoxemia. R09.02. 3 LPM via SD continuous. ergocalciferol, vitamin D2, (VITAMIN D) 50,000 unit capsule Take 1 capsule by mouth once every month. gabapentin (NEURONTIN) 300 mg capsule Take 1 capsule by mouth daily at bedtime. hydrALAZINE (APRESOLINE) 100 mg tablet Take 1 tablet by mouth three times daily. cloNIDine HCl (CATAPRES) 0.1 mg tablet Take 1 tablet by mouth three times daily. metoprolol succinate ER (TOPROL XL) 25 mg 24 hr tablet Take 1 tablet by mouth once daily. atorvastatin (LIPITOR) 40 mg tablet Take 1 tablet by mouth daily at bedtime. For cholesterol. albuterol HFA (VENTOLIN HFA) 90 mcg/actuation inhaler Inhale 2 Puffs as instructed every 4 hours as needed for Wheezing/Shortness of Breath. FAMILY HISTORY Problem Relation Age of Onset - Cancer Mother lung - Coronary Artery Disease Father 63 - Breast Cancer Sister - Diabetes Maternal Grandmother Social History Substance Use Topics - Smoking status: Never Smoker - Smokeless tobacco: Never Used - Alcohol use 1.5 oz/week 1 Cans of Beer (12oz) per week Comment: ocas PHYSICAL EXAM BP 136/68 (BP Site: Left Arm, BP Position: Sitting, BP Cuff Size: Large Adult) Pulse 64 Temp 36.9 ?C (98.4 ?F) Resp 20 Wt 95.3 kg (210 lb) SpO2 93% BMI 34.95 kg/m2 General Appearance: in no acute distress, alert, obese, appears fatigued Pysch: mood and affect flat and restricted Eyes: conjunctiva pink and moist, no icterus, sclera white, non-injected Oropharynx: moist Lungs: Lungs diminished throughout but clear to auscultation. No wheezing, rhonchi, rales Heart: RRR without murmur, gallop, or rubs. No ectopy, Heart sounds distant Abdomen: Abdomen soft, obese. Bowel sounds normal. No tenderness with palpation. Ext: 1+ pitting edema to bilateral lower legs and 2+ to bilateral hands, RANDgt;L, good distal pulses Component Latest Ref Rng ANDamp; Units 12/16/2017 12/17/2017 WBC 3.98 - 10.04 thou/cmm 4.80 4.62 RBC 3.93 - 5.22 mil/cmm 2.70 (L) 2.54 (L) HGB 11.2 - 15.7 g/dL 7.8 (L) 7.3 (L) Hematocrit 34.1 - 44.9 % 25.5 (L) 25.2 (L) MCV 79.4 - 94.8 fl 94.4 99.2 (H) MCH 25.6 - 32.2 pg 28.9 28.7 MCHC 31.6 - 34.8 % 30.6 (L) 29.0 (L) RDW 11.7 - 14.4 % 15.7 (H) 15.6 (H) RDW-SD 36.4 - 46.3 fl 54.0 (H) 55.9 (H) Platelet Count 182 - 369 thou/cmm 126 (L) 126 (L) MPV 9.4 - 12.3 fl 9.7 9.9 Sodium 136 - 145 mEq/L 136 139 Potassium 3.5 - 5.1 mEq/L 4.3 4.5 Chloride 98 - 107 mEq/L 100 103 CO2 21 - 32 mEq/L 30 31 Glucose 70 - 99 mg/dL 206 (H) 238 (H) BUN 7 - 18 mg/dL 48 (H) 54 (H) Creatinine 0.51 - 0.95 mg/dL 2.92 (H) 2.93 (H) Calcium 8.5 - 10.1 mg/dL 8.2 (L) 8.4 (L) Anion Gap 8 - 16 10 10 eGFR ANDgt;60mL/min/1.73m2 15.91 15.85 ASSESSMENT/PLAN: 1. Acute renal failure on dialysis (HCC) - ICD9: 584.9, V45.11, ICD10: N17.9, Z99.2 (primary diagnosis) Patient doing fairly well Continue with dialysis and labs as ordered Follow-up with child support agent Follow-up with PCP sooner than appointment scheduled in February 2. Anemia in chronic kidney disease, unspecified CKD stage - ICD9: 285.21, ICD10: N18.9, D63.1 Continue to monitor CBC. Will be managed by nephrology 3. IENS on CPAP - ICD9: 327.23, V46.8, ICD10: G47.33, Z99.89 Unclear why settings were changed. database development project manager will contact [employer] and patient's rabble furnace tender concerning patient's symptoms 4. Generalized edema - ICD9: 782.3, ICD10: R60.1 Likely secondary to renal failure. Patient states right hand has been swollen due to recent injury for which she has been going to PT Prescription instructions reviewed with patient as applicable. Potential red flag symptoms discussed with the patient. Reviewed appropriate action plan to take if red flag symptoms occur. Patient agreeable to treatment plan. Reny Banda APRN.JULIO C Limon LPN 12/23/2017 11:39 AM Signed BONE MINERAL DENSITY PATIENT INSTRUCTIONS Bone mineral density testing measures the amount of calcium in certain parts of your bones. This information determines how strong your bones are. The test is used to detect osteoporosis, a disease in which the bone's mineral content and density are low, increasing a person's risk of fractures. The lumbar spine (lower back) and the hip are the skeletal sites usually examined. For the test, remember that: 1. You cannot take this test if you are . 2. Eat a normal diet on the day of the test. 3. Take your medications as you normally would. 4. DO NOT take calcium supplements (such as Tums) for 24 hours before the test. 5. On the day of the test, leave valuables (jewelry or credit cards) at home. 6. The test should be performed prior to oral, rectal or IV contrast studies, or at least 7 days after any of these studies. For the test, you may be asked to wear a hospital gown. You will lie on your back, on a padded table, in a comfortable position. Generally, you can resume your usual activities immediately. Referring Provider: SELF [[id number]] Allergies As of Date: 12/23/2017 (No Known Allergies) Date Reviewed: 12/23/2017 Reviewed by: Cindy Limon LPN - Fully Assessed Reason for Visit: Hospital F/U [57] Cmt: was at [facility] for renal failure Primary Visit Diagnosis:Acute renal failure on dialysis (HCC) [N17.9, Z99.2] Other Visit Diagnoses:Anemia in chronic kidney disease, unspecified CKD stage [N18.9, D63.1] INES on CPAP [G47.33, Z99.89] Generalized edema [R60.1] Prescriptions as of 12/23/2017 Sig: AMIODARONE 200 MG TABLET Take 200 mg by mouth once esequiel* ASPIRIN 325 MG TABLET,DELAYED* Take 325 mg by mouth daily wi* FERREX 150 MG IRON CAPSULE Take 1 capsule by mouth once * PANTOPRAZOLE 40 MG TABLET,DEL* Take 1 tablet by mouth once d* LANTUS SOLOSTAR U-100 INSULIN* INJECT 39 UNITS SUBCUTANEOUS* NOVOLOG FLEXPEN U-100 INSULIN* INJECT 4 TIMES DAILY DIREC* COMPOUNDED PRESCRIPTION Portable oxygen Dx: Hypoxemia* ERGOCALCIFEROL (VITAMIN D2) 5* Take 1 capsule by mouth once * GABAPENTIN 300 MG CAPSULE Take 1 capsule by mouth daily* HYDRALAZINE 100 MG TABLET Take 1 tablet by mouth three * CLONIDINE HCL 0.1 MG TABLET Take 1 tablet by mouth three * METOPROLOL SUCCINATE ER 25 MG* Take 1 tablet by mouth once d* ATORVASTATIN 40 MG TABLET Take 1 tablet by mouth daily * Problem List As Of Date 12/23/2017 Noted Resolved 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 Essential hypertension with goal blood pressure*INVALID FOR* Ischemic ulcer of finger with necrosis of muscl*INVALID FOR*05/05/2017 More... 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 This information determines how strong your bones are. The test is used to detect osteoporosis, a disease in which the bone's mineral content and density are low, increasing a person's risk of fractures. The lumbar spine (lower back) and the hip are the skeletal sites usually examined. For the test, remember that: 1. You cannot take this test if you are . 2. Eat a normal diet on the day of the test. 3. Take your medications as you normally would. 4. DO NOT take calcium supplements (such as Tums) for 24 hours before the test. 5. On the day of the test, leave valuables (jewelry or credit cards) at home. 6. The test should be performed prior to oral, rectal or IV contrast studies, or at least 7 days after any of these studies. For the test, you may be asked to wear a hospital gown. You will lie on your back, on a padded table, in a comfortable position. Generally, you can resume your usual activities immediately. Medications Discontinued During This Encounter albuterol HFA (VENTOLIN HFA) 90 mcg/* 1 In* 0 06/19/2017 12/23/2017 Class: Historical Med Route: INHALATION Sig: Inhale 2 Puffs as instructed every 4 hours as needed for Wheezing/Shortness of Breath. Disc: Reason for discontinue is not on file. Encounter Status:Closed by RENY BANDA CNP on 12/23/17 TUAN Observed: 12/23/2017 Status: COMPLETED Source: [place] 12:00 AM [facility] Patient Outreach (INTMWS) MICHAEL GARCIA ([id number]) 1945 F BLD Date Time Provider Department 12/23/17 SIMIN AQUINO During your visit today, we recorded the following information about you: Simin Duarte RN 07/17/2018 8:32 AM Signed PRIMARY CARE COORDINATION FOLLOW-UP NOTE Provider Action/FYI Patient identified by name and date of . YES Spoke to [facility] Summary: Spoke with pharmacist who said they should hav reached their deductible- that's what cost so much. Her insulins should cost $131 for a 3 month supply each. called back and LMOM that dose of Lasix she has is 40mg and she was told to resume 1/2 tab BID by [facility] Turner to help her kidneys. She has been taking that and has been voiding. They are hoping she can stop dialysis at some point. 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 plan for next outreach: Signature Simin Villarreal RN Ambulatory Lidar Technician Internal Medicine [facility] December 24, 2017 Allergies As of Date: 12/23/2017 (No Known Allergies) Date Reviewed: 12/23/2017 Reviewed by: Cindy Robles (Lucila) LUCILA Rahman - Fully Assessed Reason for Visit: Lidar Technician Hospital Follow Up [0119] Cmt: [facility] 12/12- Prescriptions as of 12/23/2017 Sig: ASPIRIN 325 MG TABLET,DELAYED* Take 325 mg by mouth daily wi* X AMIODARONE 200 MG TABLET Take 200 mg by mouth once esequiel* FERREX 150 MG IRON CAPSULE Take 1 capsule by mouth once * PANTOPRAZOLE 40 MG TABLET,DEL* Take 1 tablet by mouth once d* LANTUS SOLOSTAR U-100 INSULIN* INJECT 39 UNITS SUBCUTANEOUS* NOVOLOG FLEXPEN U-100 INSULIN* INJECT 4 TIMES DAILY DIREC* COMPOUNDED PRESCRIPTION Portable oxygen Dx: Hypoxemia* ERGOCALCIFEROL (VITAMIN D2) 5* Take 1 capsule by mouth once * METOPROLOL SUCCINATE ER 25 MG* Take 1 tablet by mouth once d* ATORVASTATIN 40 MG TABLET Take 1 tablet by mouth daily * X GABAPENTIN 300 MG CAPSULE Take 1 capsule by mouth daily* Patient not taking: Reported on 03/05/2018 X HYDRALAZINE 100 MG TABLET Take 1 tablet by mouth three * X CLONIDINE HCL 0.1 MG TABLET Take 1 tablet by mouth three * Problem List As Of Date 12/23/2017 Noted Resolved 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 Essential hypertension with goal blood pressure*INVALID FOR* Ischemic ulcer of finger with necrosis of muscl*INVALID FOR*05/05/2017 More... 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] INVALID FOR* CKD (chronic kidney disease) stage 3, GFR 30-59*INVALID FOR* Hypoxemia [R09.02] INVALID FOR* Acute diastolic CHF (congestive heart failure) *INVALID FOR* Anemia in stage 3 chronic kidney disease [N18.3*INVALID FOR* JORGE (acute kidney injury) (HCC) [N17.9] INVALID FOR* Acute renal failure on dialysis (HCC) [N17.9, Z*INVALID FOR* Encounter Status:Closed by [employer], PRODUSER on 07/17/18 BASIC METABOLIC Collected: 12/22/2017 Status: F Source: CHRISTOPHER PROFILE (BMP) 8:54 AM [facility] REPOSITORY TYPE CODE TESTS RESULT OUT OF RANGE REFERENCE UNITS LAB L501.0100 74-106 mg/dL High GLU 288 Result Comment: Glucose result greater than or equal to 200 mg/dL suggests DIABETES MELLITUS per A.D.A. criteria. Please note revised GLUCOSE reference range effective 2017. LAB L501.1000 7-18 mg/dL High BUN 54 LAB L501.1100 0.55-1.02 mg/dL High CREAT,SERUM 4.52 Result Comment: The validity of the calculated GFR AND GFRAA in patients over 70 years has not been determined. Clinical correlation is essential. LAB L501.1110 >60 mL/min Low EST GFR 10 Result Comment: Non- GFR Calc LAB L501.1115 >60 mL/min Low EST GFR - AA 12 Result Comment: GFR Calc LAB L501.1300 10-20 RATIO Normal BUN/CRE 11.9 LAB L501.2200 8.5-10.1 mg/dL Low CA 8.2 LAB L501.5300 136-145 mmol/L NA Normal 140 LAB L501.5600 3.5-5.1 mmol/L K Normal 4.3 LAB L501.5900 98-107 mmol/L CL Normal 100 LAB L501.6100 21.0-32.0 mmol/L Normal CO2 30.0 LAB L501.6200 5-15 Normal GAP 10 Performed By: #### L500.2500 #### [facility] [address] [place], [address] PROGRESS Observed: 12/19/2017 Status: COMPLETED Source: [place] 5:17 PM [facility] REPOSITORY HNO ID: [id number] Author: Simin Duarte [facility] Service: (none) Author Type: Registered Nurse Type: Progress Notes Filed: 01/15/2018 8:41 AM Note Text: TRANSITION CARE MANAGEMENT (TCM) INITIAL CONTACT Provider Action/FYI: Pt having dialysis MWF 7-11am. On O2 @ 3.5L NC. Eating well, no complaints. Initial contact with patient post discharge, spoke to spouse. Patient identified by name and . SUMMARY: -Pt discharged from [facility] on 12/17/17. -Follow up appointment on 12/23/17 w/ Reny ADAMS. -Medication review done yes. -Admitted for: Renal failure CONCERNS: No complaints. BSs running 167. Checking BSs TID, occasionally over 200. Doing correction at mealtime. Using O2 @ 3.5L/NC with O2 Sat running 97%. NEW MEDICATIONS: None MEDS HELD/DISCONTINUED: As listed BRIEF HOSPITAL COURSE: ? JORGE on CKD requiring HD, unclear etiology, likely 2/2 ATN The patient presented from her outpatient child support agent with a positive PANCA, concern for JORGE on CKD secondary to vasculitis. The patient was admitted with Cr 3.23, eGFR 14 and was anuric (baseline SCr 1.6-1.8). Nephrology was consulted and the patient was continued on hemodialysis and started on plasmapheresis alternating days. The patient tolerated HD well, Cr improved slightly to 2.48 but she still had scant urine output. The patient underwent a biopsy of her left kidney, preliminary results did not reveal evidence of vasculitis therefore plasmapheresis was stopped. The etiology of the patient's JORGE on CKD is still unclear, possibly due to ATN from recent acute illness with paroxysmal Afib with RVR. The patient has scheduled follow-up with nephrology as outpatient, will continued with HD MWF in [place]. She is to avoid NSAIDs/ IV contrast/nephrotoxic agents. Her home hydralazine was continued at discharge as the renal decompensation is not likely due to vasculitis and dur-induced lupus is not associated with nephritis. ? 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 She had a recent hospital discharge for community acquired pneumonia. She was admitted on her home oxygen requirement, was afebrile with normal WBC, no complaints of cough with sputum production. She had evidence of left sided pleural effusion and pulmonology was consulted for further management. In radiology they were unable to collect a fluid sample as the fluid collection was not large enough. She was treated for symptoms of a viral upper respiratory tract infection while inpatient. A repeat transthoracic echocardiogram revealed evidence of pulmonary hypertension. At this time pulmonology recommended outpatient follow up for potential right heart catheterization with the patient's outpatient rabble furnace tender. She was discharged on her home O2 requirements in stable condition. ? Paroxysmal Afib The patient had a recent history of paroxysmal atrial fibrillation secondary to sepsis during a previous hospital admission. She was normal sinus rhythm on admission and was admitted on telemetry. Her CHADVASC2 was 4pts, however the patient refused anticoagulation due to a history of head bleed. The patient was informed of the risks and benefits and had the capacity to maker her own medical decisions. Her metoprolol was continued. She had an episode of atrial fibrillation on telemetry, however EKG done shortly thereafter showed sinus tachycardia. Her amiodarone was initially held due to concerns of worsening chronic hypoxic respiratory failure which was evaluate by pulmonology while inpatient and thought to be secondary to pulmonary artery hypertension from scleroderma. She was discharged home on her home amiodarone. ? IDDM No changes were made to the patient's home insulin regimen. ? HTN The patient's blood pressure was well controlled while inpatient on her home medications. On her day of discharge her blood pressure was elevated and she was discharged home with her home clonidine, metoprolol and hydralazine. ? CREST Will need outpatient follow up with pulmonology and rheumatology. ? INES Continued on NIPPV during this admission. ? PT rec home with home PT OT ? Consults: ? Dr Portillo Romeo, nephrology, consulted for JORGE on CKD requiring HD with positive P-ANCA ? Dr Raimundo Wall, pulmonology, consulted for chronic hypoxic respiratory failure with pleural effusion ? Procedures: ? Transthoracic echocardiogram 12/16/2017 Final Impressions: Left Ventricle: Normal left ventricular size and systolic function. No regional wall motion abnormalities. LVEF is 60-65% by Biplane Modified Schmitt's Method. Diastolic dysfunction could not be reliably determined due to mitral annular calcification. E/E' is >15. Mitral Valve: There is moderate mitral annular calcification with thickening and calcification of the mitral valve leaflets. There is mild mitral valve stenosis. Peak gradient is17 mmHg. Mean gradient is 5mmHg. Right Ventricle: Normal right ventricular size and systolic function. Left Atrium: The left atrium appears moderately dilated in size. ROSALIA is 42.26 ml/m2. Tricuspid Valve: Severe pulmonary hypertension. Right ventricular systolic pressure is estimated at 65 mmHg. ? PROGRESS Observed: 12/19/2017 Status: COMPLETED Source: [place] 5:17 PM [facility] REPOSITORY O ID: [id number] Author: Simin Villarreal Service: (none) Author Type: Registered Nurse Type: Progress Notes Filed: 01/15/2018 8:41 AM Note Text: Pt contacted and going to dialysis. TUAN Observed: 12/19/2017 Status: COMPLETED Source: [place] 12:00 AM [facility] REPOSITORY Patient Outreach (INTMWS) MICHAEL GARCIA ([id number]) 1945 F BLD Date Time Provider Department 12/19/17 SIMIN AQUINO During your visit today, we recorded the following information about you: Simin Duarte RN 01/15/2018 8:41 AM Signed TRANSITION CARE MANAGEMENT (TCM) INITIAL CONTACT Provider Action/FYI: Pt having dialysis MWF 7-11am. On O2 @ 3.5L NC. Eating well, no complaints. Initial contact with patient post discharge, spoke to spouse. Patient identified by name and . SUMMARY: -Pt discharged from [facility] on 12/17/17. -Follow up appointment on 12/23/17 w/ Reny Older [employer] REPORT DEVELOPER. -Medication review done yes. -Admitted for: Renal failure CONCERNS: No complaints. BSs running 167. Checking BSs TID, occasionally over 200. Doing correction at mealtime. Using O2 @ 3.5L/NC with O2 Sat running 97%. NEW MEDICATIONS: None MEDS HELD/DISCONTINUED: As listed BRIEF HOSPITAL COURSE: ? JORGE on CKD requiring HD, unclear etiology, likely 2/2 ATN The patient presented from her outpatient child support agent with a positive PANCA, concern for JORGE on CKD secondary to vasculitis. The patient was admitted with Cr 3.23, eGFR 14 and was anuric (baseline SCr 1.6-1.8). Nephrology was consulted and the patient was continued on hemodialysis and started on plasmapheresis alternating days. The patient tolerated HD well, Cr improved slightly to 2.48 but she still had scant urine output. The patient underwent a biopsy of her left kidney, preliminary results did not reveal evidence of vasculitis therefore plasmapheresis was stopped. The etiology of the patient's JORGE on CKD is still unclear, possibly due to ATN from recent acute illness with paroxysmal Afib with RVR. The patient has scheduled follow- up with nephrology as outpatient, will continued with HD [facility] in [place]. She is to avoid NSAIDs/ IV contrast/nephrotoxic agents. Her home hydralazine was continued at discharge as the renal decompensation is not likely due to vasculitis and dur-induced lupus is not associated with nephritis. ? 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 She had a recent hospital discharge for community acquired pneumonia. She was admitted on her home oxygen requirement, was afebrile with normal WBC, no complaints of cough with sputum production. She had evidence of left sided pleural effusion and pulmonology was consulted for further management. In radiology they were unable to collect a fluid sample as the fluid collection was not large enough. She was treated for symptoms of a viral upper respiratory tract infection while inpatient. A repeat transthoracic echocardiogram revealed evidence of pulmonary hypertension. At this time pulmonology recommended outpatient follow up for potential right heart catheterization with the patient's outpatient rabble furnace tender. She was discharged on her home O2 requirements in stable condition. ? Paroxysmal Afib The patient had a recent history of paroxysmal atrial fibrillation secondary to sepsis during a previous hospital admission. She was normal sinus rhythm on admission and was admitted on telemetry. Her CHADVASC2 was 4pts, however the patient refused anticoagulation due to a history of head bleed. The patient was informed of the risks and benefits and had the capacity to maker her own medical decisions. Her metoprolol was continued. She had an episode of atrial fibrillation on telemetry, however EKG done shortly thereafter showed sinus tachycardia. Her amiodarone was initially held due to concerns of worsening chronic hypoxic respiratory failure which was evaluate by pulmonology while inpatient and thought to be secondary to pulmonary artery hypertension from scleroderma. She was discharged home on her home amiodarone. ? IDDM No changes were made to the patient's home insulin regimen. ? HTN The patient's blood pressure was well controlled while inpatient on her home medications. On her day of discharge her blood pressure was elevated and she was discharged home with her home clonidine, metoprolol and hydralazine. ? CREST Will need outpatient follow up with pulmonology and rheumatology. ? INES Continued on NIPPV during this admission. ? PT rec home with home PT OT ? Consults: ? Dr Portillo Romeo, nephrology, consulted for JORGE on CKD requiring HD with positive P-ANCA ? Dr Raimundo Wall, pulmonology, consulted for chronic hypoxic respiratory failure with pleural effusion ? Procedures: ? Transthoracic echocardiogram 12/16/2017 Final Impressions: Left Ventricle: Normal left ventricular size and systolic function. No regional wall motion abnormalities. LVEF is 60-65% by Biplane Modified Schimtt's Method. Diastolic dysfunction could not be reliably determined due to mitral annular calcification. E/E' is ANDgt;15. Mitral Valve: There is moderate mitral annular calcification with thickening and calcification of the mitral valve leaflets. There is mild mitral valve stenosis. Peak gradient is17 mmHg. Mean gradient is 5mmHg. Right Ventricle: Normal right ventricular size and systolic function. Left Atrium: The left atrium appears moderately dilated in size. ROSALIA is 42.26 ml/m2. Tricuspid Valve: Severe pulmonary hypertension. Right ventricular systolic pressure is estimated at 65 mmHg. ? Simin Duarte RN 01/15/2018 8:41 AM Signed Pt contacted and going to dialysis. Allergies As of Date: 12/19/2017 (No Known Allergies) Date Reviewed: 12/17/2017 Reviewed by: Laila Arango) ELI Barth - Fully Assessed Reason for Visit: Lidar Technician Hospital Follow Up [3610] Cmt: [facility] 12/12-12/17 Reason For Visit History Recorded Prescriptions as of 12/19/2017 Sig: AMIODARONE 200 MG TABLET Take 200 mg by mouth once esequiel* ASPIRIN 325 MG TABLET,DELAYED* Take 325 mg by mouth daily wi* FERREX 150 MG IRON CAPSULE Take 1 capsule by mouth once * PANTOPRAZOLE 40 MG TABLET,DEL* Take 1 tablet by mouth once d* LANTUS SOLOSTAR U-100 INSULIN* INJECT 39 UNITS SUBCUTANEOUS* NOVOLOG FLEXPEN U-100 INSULIN* INJECT 4 TIMES DAILY DIREC* COMPOUNDED PRESCRIPTION Portable oxygen Dx: Hypoxemia* ERGOCALCIFEROL (VITAMIN D2) 5* Take 1 capsule by mouth once * GABAPENTIN 300 MG CAPSULE Take 1 capsule by mouth daily* METOPROLOL SUCCINATE ER 25 MG* Take 1 tablet by mouth once d* ATORVASTATIN 40 MG TABLET Take 1 tablet by mouth daily * X HYDRALAZINE 100 MG TABLET Take 1 tablet by mouth three * X CLONIDINE HCL 0.1 MG TABLET Take 1 tablet by mouth three * X ALBUTEROL SULFATE HFA 90 MCG/* Inhale 2 Puffs as instructed * Problem List As Of Date 12/19/2017 Noted Resolved 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 Essential hypertension with goal blood pressure*INVALID FOR* Ischemic ulcer of finger with necrosis of muscl*INVALID FOR*05/05/2017 More... 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] INVALID FOR* CKD (chronic kidney disease) stage 3, GFR 30-59*INVALID FOR* Hypoxemia [R09.02] INVALID FOR* Acute diastolic CHF (congestive heart failure) *INVALID FOR* Anemia in stage 3 chronic kidney disease [N18.3*INVALID FOR* JORGE (acute kidney injury) (HCC) [N17.9] INVALID FOR* Encounter Status:Closed by SIMIN VILLARREAL on 4/12/18 ALLIED HEALTH Observed: 12/17/2017 Status: COMPLETED Source: [place] 4:14 PM [facility] REPOSITORY HNO ID: [id number] Author: Barbara AnguianoRn) ELI Ryan Service: Home Care Services Author Type: Registered Nurse Type: Allied Health Filed: 12/17/2017 4:47 PM Note Text: DIRECTOR OF GIFT PLANNING NOTE SERVICE DATE: 12/17/2017 SERVICE TIME: 4:43 PM Discharge: Aware of Discharge home today Physician order placed for Home Care Services Home Care Agency: [facility] - active Start of care date: 24-48 hours Supplies ordered: n/a Patient/Family agree to discharge plan: yes SIGNATURE: Barbara Ryan RN PATIENT NAME: Michael Garcia DATE: December 17, 2017 TIME: 4:43 PM DIRECTOR OF GIFT PLANNING NOTE ALLIED HEALTH Observed: 12/17/2017 Status: COMPLETED Source: [place] 3:55 PM [facility] [place] REPOSITORY HNO ID: [id number] Author: Danette AnguianoRn) ELI Cohen Service: Home Care Services Author Type: Registered Nurse Type: Allied Health Filed: 12/17/2017 3:57 PM Note Text: DIRECTOR OF GIFT PLANNING NOTE SERVICE DATE: 12/17/2017 SERVICE TIME: 3:56 PM Patient Choice: Spoke with patient and family at bedside Discussed home health care services. Patient given a choice - chose Continue with services through [facility]. Will send referral via [facility]. Signed [facility] order obtained. Thank you SIGNATURE: Danette Cohen RN PATIENT NAME: Michael Garcia DATE: December 17, 2017 TIME: 3:55 PM GLUCOSE METER Collected: 12/17/2017 Status: F Source: [facility] 3:33 PM HEALTH SYSTEM REPOSITORY TYPE CODE TESTS RESULT OUT OF REFERENCE UNITS RANGE LAB GLUBL(LOINC 70-99 mg/dL ) High Glucose Meter 203 Result Comment: RN NOTIFIED Performed By: #### GLMET #### [place] [address] CASE MANAGEM Observed: 12/17/2017 Status: COMPLETED Source: [place] 3:17 PM [facility]IC OTHER [place] REPOSITORY HNO ID: [id number] Author: Liv AnguianoRn) ELI Fuller Service: Care Management Author Type: Registered Nurse Type: Care Mgt Progress Note Filed: 12/17/2017 3:19 PM Note Text: CARE MANAGEMENT DISCHARGE NOTE SERVICE DATE: 12/17/2017 SERVICE TIME: 1315 LOS: 5 days Admission Date: 12/12/2017 DISCHARGE ARRANGEMENT (list agency and phone number) Home care Provider: [facility] Phone: CAREGIVER ASSESSMENT: Caregiver is ready, willing and able to meet the patient's needs as recommended by the inter-professional team? Yes Patient's transition needs and plan for meeting these needs: yes Does the patient have an acute stroke diagnosis, or has the patient had a stroke during this admission? No HANDOFF COMMUNICATION: Pt going home with [facility]. Pt is active with [facility]. VNS Coordinator notified. TRANSPORTATION ARRANGEMENTS: Car Family here to transport home. They have portable O2 for transport. ADDITIONAL CONTACT RESOURCES: SIGNATURE: Liv Fuller RN PATIENT NAME: Michael Garcia DATE: December 17, 2017 TIME: 3:17 PM PAGER/CONTACT #: [phone] GLUCOSE METER Collected: 12/17/2017 Status: F Source: [facility] 12:11 PM HEALTH SYSTEM REPOSITORY TYPE CODE TESTS RESULT OUT OF REFERENCE UNITS RANGE LAB GLUBL(LOINC 70-99 mg/dL ) High Glucose Meter 170 Result Comment: RN NOTIFIED Performed By: #### GLMET #### [place] [address] NURSING PROG Observed: 12/17/2017 Status: COMPLETED Source: [place] 11:56 AM [facility] OTHER [facility]AMP[facility] REPOSITORY HNO ID: [id number] Author: Manju AnguianoRn) ELI Quiroga Service: Dialysis Author Type: Registered Nurse Type: Nursing Progress Note Filed: 12/17/2017 11:56 AM Note Text: HEMODIALYSIS TX COMPLETED PAULA WELL STABLE FLUID BALANCE - 1000 ML OFF SEE FLOW SHEET FOR DETAILS CASE MANAGEM Observed: 12/17/2017 Status: COMPLETED Source: [place] 10:31 AM [facility] OTHER [facility]AMP[facility] REPOSITORY HNO ID: [id number] Author: Liv AnguianoRn) ELI Fuller Service: Care Management Author Type: Registered Nurse Type: Care Mgt Progress Note Filed: 12/17/2017 10:34 AM Note Text: CARE MANAGEMENT PROGRESS NOTE SERVICE DATE: 12/17/2017 SERVICE TIME: 1032 LOS: 5 days Chart reviewed. PT saw and recommending home PT. C tasked and following. Pt has home O2. She wears 3.5 Liters NC. Has multiple DME. Plan home with [facility]. SIGNATURE: Liv Fuller RN PATIENT NAME: Michael Garcia DATE: December 17, 2017 TIME: 10:32 AM PAGER/CONTACT #: [phone] THERAPY NT Observed: 12/17/2017 Status: COMPLETED Source: [place] 8:45 AM [facility] REPOSITORY HNO ID: [id number] Author: Shraddha AnguianoOtr/L) Sylvester Service: Occupational Therapy Author Type: Occupational Therapist Type: Therapy (PT/OT/Speech/Resp) Filed: 12/17/2017 8:46 AM Note Text: OCCUPATIONAL THERAPY MISSED VISIT SERVICE DATE: 12/17/2017 SERVICE TIME: 08 to 0845 ROOM: [place] [address] Attempted Evaluation. Patient not seen due to Test/Procedure. Patient at dialysis, will continue to follow as able and appropriate. SIGNATURE: Shraddha Phan OTR/L PATIENT NAME: Michael Garcia DATE: December 17, 2017 TIME: 8:46 AM PAGER/CONTACT #: [phone] PROGRESS Observed: 12/17/2017 Status: COMPLETED Source: [place] 7:18 AM [facility] REPOSITORY HNO ID: [id number] Author: Portillo Romeo Service: Nephrology Author Type: Physician Type: Progress Notes Filed: 12/17/2017 8:22 AM Note Text: Nephrology Progress Note Following for JORGE/dialysis dependent. Pt denies SOB at rest. No CP. Urine output is subjectively increased. No gross hematuria. Current Inpatient Medications: Current Facility-Administered Medications Ordered in Epic: acetaminophen 650 mg tab(s) (TYLENOL) 650 mg ORAL q 6 H PRN Lori (Res) Artem perflutren lipid microspheres 1.1 mg/mL 1.3 mL injection (DEFINITY) 1.3 mL INTRAVENOUS PRN(NO DISPENSE) Teresa (Julio C) JULIO C Palacio insulin lispro 4 Units pen (rapid acting) (HumaLOG KWIKPEN) 4 Units SUBCUTANEOUS w MEALS Dharmvir (Res) Kuo 4 Units at 12/16/17 1646 loratadine 5 mg tab(s) (CLARITIN) 5 mg ORAL DAILY Dharmvir (Res) Kuo 5 mg at 12/16/17 0842 insulin lispro pen (rapid acting) (HumaLOG KWIKPEN) SUBCUTANEOUS w MEALS Jordyn Decker (Res) Veliz 1 Units at 12/16/17 1646 fluticasone 50 mcg/actuation 1 [place] (FLONASE) 1 [place] EACH NOSTRIL DAILY Umu (Julio C) JULIO C Rios 1 [place] at 12/16/17 0842 pill splitter (patient-specific) 1 Each Miscell. (Med.Supl.;Non- Drugs) PRN Bianca Ayalauso atorvastatin 40 mg tab(s) (LIPITOR) 40 mg ORAL AT BEDTIME Roulan (Res) Abu Hweij 40 mg at 12/16/17 210 epoetin osvaldo 3,000 Units injection (PROCRIT) 3,000 Units INTRAVENOUS 3 Times weekly with dialysis Nidia Jones MD 3,000 Units at 12/13/17 1800 heparin 1,000 unit/mL 3,800 Units injection 3,800 Units INTRALUMINAL 3 Times weekly with mckayla Jones MD 3,800 Units at 12/13/17 1845 polyethylene glycol 3350 17 g packet (MIRALAX, GLYCOLAX) 17 g ORAL DAILY Bianca Lobo 17 g at 12/16/17 0842 senna-docusate 8.6-50 mg 1 tablet (SENNA-S) 1 tablet ORAL AT BEDTIME Bianca Lobo 1 tablet at 12/16/172107 insulin glargine 39 Units pen (long acting) (LANTUS SOLOSTAR, BASAGLAR) 39 Units SUBCUTANEOUS AT BEDTIME Roulan (Res) [place] Hweij 39 Units at 12/16/172107 metoprolol tartrate (short acting) 12.5 mg tab(s) (LOPRESSOR) 12.5 mg ORAL q 12 H Luisa (Res) [place] 12.5 mg at 12/16/172108 sodium chloride-aloe vera topical nasal gel (AYR GEL w/ALOE) INTRANASAL PRN Luisa (Res) [place] 1 application at 12/13/17 2315 albuterol HFA 90 mcg/actuation 2 Puff (PROVENTIL HFA, VENTOLIN HFA) 2 Puff INHALATION q 4 H PRN Binaca Lobo cloNIDine HCl 0.1 mg tab(s) (CATAPRES) 0.1 mg ORAL TID Noman (Res) Vura 0.1 mg at 12/16/172107 pantoprazole DR 40 mg tab(s) (PROTONIX) 40 mg ORAL DAILY Noman (Res) Vura 40 mg at 12/16/17 0842 dextrose 40 % 15 g 15 g ORAL PRN Noman (Res) Vura Or glucagon 1 mg injection (GLUCAGEN) 1 mg INTRAMUSCULAR PRN Noman (Res) Vura Or dextrose 50% in water 25 mL syringe 12.5 g INTRAVENOUS PRN Noman (Res) Vura No current Epic-ordered outpatient prescriptions on file. Vitals: BP 132/52 Pulse (!) 58 Temp 36.4 ?C (97.5 ?F) (Oral) Resp 20 Ht 165.1 cm (5' 5) Wt 98.7 kg (217 lb 9.5 oz) SpO2 99% BMI 36.21 kg/m2 BLOOD PRESSURE RANGE: Systolic (24hrs), Av , Min:95 , Max:135 ; Diastolic (24hrs), Av, Min:45, Max:60 24HR INTAKE/OUTPUT: Intake/Output Summary (Last 24 hours) at 12/17/17 0718 Last data filed at 12/17/17 0651 Gross per 24 hour Intake 240 ml Output 5 ml Net 235 ml Physical exam: Constitutional: NAD Skin: no rash, turgor wnl Heent: eomi, mmm Neck: no bruits or jvd noted Cardiovascular: S1, S2 without m/r/g Respiratory: CTAB without w/r/r Abdomen: +bs, soft, nt, nd Ext: no lower extremity edema Data: Labs: Recent Labs 12/17/17 0430 12/16/17 0325 12/15/17 0315 WBC 4.62 4.80 5.33 HB 7.3* 7.8* 8.4* HCT 25.2* 25.5* 26.9* MCV 99.2* 94.4 92.8 PLT 126* 126* 134* Recent Labs 12/17/17 0430 12/16/17 0325 12/15/17 0315 NA 139 136 134* K 4.5 4.3 3.6 CO2 31 30 32 BUN 54* 48* 36* CREAT 2.93* 2.92* 2.76* CA 8.4* 8.2* 8.0* Assessment and Plan 1. Acute kidney injury on chronic kidney disease stage 3. Baseline SCr is 1.6-1.8 (as of October 2017). CKD is thought to be 2/2 diabetic nephropathy. Etiology of JORGE is not clear but most likely ATN. Preliminary read of kidney tissue biopsy did not reveal vasculitis. Therefore, we will stop TPE. Pt is making more urine, so I am still cautiously optimistic or renal recovery enough to eventually stop dialysis. However, will continue HD for now. I supervised the HD: 4hrs treatment on F160 NR, Qb400/Qd600. 3K/2Ca dialysate. Limit UF to 1 L. Continue to avoid NSAID/IV contrast. OK to discharge home from the renal standpoint. We will see her at the kidney center in [place] [facility] We will continue to monitor for renal recovery there. The current medication list was reviewed. All medications are appropriately dosed for the current creatinine clearance. 2. Anemia. Continue TEZ with HD. 3. HTN. BP is acceptable. Continue current BP meds. 4. T2DM. Glycemic control per medicine service. Please do not hesitate to contact me at [phone] if there is any question or concern. Matilde Hayward MD (Portillo Romeo) CNDS Observed: 12/17/2017 Status: COMPLETED Source: [place] 7:06 AM [facility] OTHER CAMPUS REPOSITORY O ID: [id number] Author: Vani Hodge Service: General Internal Medicine Author Type: Physician Type: Discharge Summaries Filed: 12/18/2017 10:07 PM Note Text: [facility] DISCHARGE SUMMARY Patient: Michael Garcia : 1945 Date of Admission: 12/12/2017 Date of Discharge: 12/17/2017 Attending at Discharge: Dr Vani Hodge Discharged from: [facility] Disposition to: Home with home health care Condition at Discharge: Stable Principal Diagnosis: JORGE on CKD requiring dialysis Secondary Diagnoses: Problem List Noted Noted By Resolved Resolved By JORGE (acute kidney injury) ([facility]) 12/12/2017 Noman (Res) Chandrika No Anemia in stage 3 chronic kidney disease 11/12/2017 Mat Duffy No Acute diastolic CHF (congestive heart failure) (HCC) 08/09/2017 Mat Duffy No Hypoxemia 06/19/2017 Mat Duffy No S/P craniotomy 04/04/2016 Mat Duffy No CREST variant of scleroderma (HCC) 04/04/2016 Mat Duffy No CKD (chronic kidney disease) stage 3, GFR 30-59 ml/min 04/04/2016 Mat Duffy No Type 2 diabetes mellitus with renal manifestations (HCC) 01/19/2016 Mat Duffy No Overview Signed 01/19/2016 8:15 AM by Mat Romeo, nephrology Essential hypertension with goal blood pressure less than 130/85 01/19/2016 Mat Dumont Hyperlipidemia 01/19/2016 Mat Duffy No Legally blind 01/19/2016 Mat Duffy No Diabetic peripheral neuropathy associated with type 2 diabetes mellitus (HCC) 01/19/2016 Mat Dumont Primary osteoarthritis of right knee 01/19/2016 Mat Duffy No Cerebellar hemorrhage, acute (HCC) 04/04/2016 Mat Duffy 05/05/2017 Mat Duffy Ischemic ulcer of finger with necrosis of muscle (HCC) 01/19/2016 Mat Duffy 05/05/2017 Mat Duffy Overview Signed 01/19/2016 8:18 AM by Mat Duffy Left 3rd finger tip Medications: Please see Medication Reconciliation Form from date of discharge. Stopped Medications: Medications Discontinued During This Encounter Medication Reason - lidocaine HCl 2 % crea - tiotropium (SPIRIVA WITH HANDIHALER) 18 mcg inhalation capsule Not Continued After Discharge - metoprolol succinate ER 25 mg tab(s) (TOPROL XL) - iron polysaccharide complex capsule 150 mg (FERREX-150) - insulin regular human injection (short acting) (NovoLIN R,HumuLIN R) - insulin glargine 15 Units pen (long acting) (LANTUS SOLOSTAR, BASAGLAR) - insulin regular human injection (short acting) (NovoLIN R,HumuLIN R) - senna-docusate 8.6-50 mg 1 tablet (SENNA-S) - insulin glargine 20 Units pen (long acting) (LANTUS SOLOSTAR, BASAGLAR) - enoxaparin 30 mg injection (LOVENOX) - loratadine 10 mg tab(s) (CLARITIN) - cholecalciferol, vitamin D3, 50,000 unit tab Duplicate Entry - insulin regular human injection (short acting) (NovoLIN R,HumuLIN R) - gabapentin (NEURONTIN) 100 mg capsule - furosemide (LASIX) 40 mg tablet - acetaminophen 650 mg tab(s) (TYLENOL) Auto DC at discharge. - insulin lispro pen (rapid acting) (HumaLOG KWIKPEN) Auto DC at discharge. - loratadine 5 mg tab(s) (CLARITIN) Auto DC at discharge. - insulin lispro 4 Units pen (rapid acting) (HumaLOG KWIKPEN) Auto DC at discharge. - perflutren lipid microspheres 1.1 mg/mL 1.3 mL injection (DEFINITY) Auto DC at discharge. - pill splitter (patient-specific) Auto DC at discharge. - fluticasone 50 mcg/actuation 1 [place] (FLONASE) Auto DC at discharge. - sodium chloride-aloe vera topical nasal gel (AYR GEL w/ALOE) Auto DC at discharge. - metoprolol tartrate (short acting) 12.5 mg tab(s) (LOPRESSOR) Auto DC at discharge. - insulin glargine 39 Units pen (long acting) (LANTUS SOLOSTAR, BASAGLAR) Auto DC at discharge. - senna-docusate 8.6-50 mg 1 tablet (SENNA-S) Auto DC at discharge. - polyethylene glycol 3350 17 g packet (MIRALAX, GLYCOLAX) Auto DC at discharge. - heparin 1,000 unit/mL 3,800 Units injection Auto DC at discharge. - epoetin osvaldo 3,000 Units injection (PROCRIT) Auto DC at discharge. - atorvastatin 40 mg tab(s) (LIPITOR) Auto DC at discharge. - dextrose 50% in water 25 mL syringe Auto DC at discharge. - glucagon 1 mg injection (GLUCAGEN) Auto DC at discharge. - dextrose 40 % 15 g Auto DC at discharge. - pantoprazole DR 40 mg tab(s) (PROTONIX) Auto DC at discharge. - cloNIDine HCl 0.1 mg tab(s) (CATAPRES) Auto DC at discharge. - albuterol HFA 90 mcg/actuation 2 Puff (PROVENTIL HFA, VENTOLIN HFA) Auto DC at discharge. New Medications: no new medications at discharge; Discussed use, dose and side effects; Patient expresses understanding. Brief HPI: Ms Michael Garcia is a 72 year old female with PMH CKD stage III, IDDM, HTN, CREST, PAD, h/o cerebral bleed, INES, chronic respiratory failure on 3.5L O2 at baseline who was recently discharged from outside hospital after being treated for community acquired pneumonia, UTI, JORGE on CKD requiring dialysis who now presents from child support agent office with elevated P-ANCA on labwork. Vitals: 36.8 C, HR 67, RR 18, BP 147/55, 98% on 4L NC GENERAL: Alert, no distress, cooperative, lying comfortably in bed SKIN: Skin color, texture, turgor normal. No rashes or lesions. NECK: No jugulovenous distention, No carotid bruits LUNGS: Lungs clear to auscultation CARDIAC: Normal S1 and S2; no rubs, murmurs, or gallops ABDOMEN: Abdomen soft, non-tender, BS normal, No masses or organomegaly EXTREMITIES: no lower extremity edema Hospital Course: JORGE on CKD requiring HD, unclear etiology, likely 2/2 ATN The patient presented from her outpatient child support agent with a positive PANCA, concern for JORGE on CKD secondary to vasculitis. The patient was admitted with Cr 3.23, eGFR 14 and was anuric (baseline SCr 1.6-1.8). Nephrology was consulted and the patient was continued on hemodialysis and started on plasmapheresis alternating days. The patient tolerated HD well, Cr improved slightly to 2.48 but she still had scant urine output. The patient underwent a biopsy of her left kidney, preliminary results did not reveal evidence of vasculitis therefore plasmapheresis was stopped. The etiology of the patient's JORGE on CKD is still unclear, possibly due to ATN from recent acute illness with paroxysmal Afib with RVR. The patient has scheduled follow-up with nephrology as outpatient, will continued with HD [facility] in [place]. She is to avoid NSAIDs/ IV contrast/nephrotoxic agents. Her home hydralazine was continued at discharge as the renal decompensation is not likely due to vasculitis and dur-induced lupus is not associated with nephritis. 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 She had a recent hospital discharge for community acquired pneumonia. She was admitted on her home oxygen requirement, was afebrile with normal WBC, no complaints of cough with sputum production. She had evidence of left sided pleural effusion and pulmonology was consulted for further management. In radiology they were unable to collect a fluid sample as the fluid collection was not large enough. She was treated for symptoms of a viral upper respiratory tract infection while inpatient. A repeat transthoracic echocardiogram revealed evidence of pulmonary hypertension. At this time pulmonology recommended outpatient follow up for potential right heart catheterization with the patient's outpatient rabble furnace tender. She was discharged on her home O2 requirements in stable condition. Paroxysmal Afib The patient had a recent history of paroxysmal atrial fibrillation secondary to sepsis during a previous hospital admission. She was normal sinus rhythm on admission and was admitted on telemetry. Her CHADVASC2 was 4pts, however the patient refused anticoagulation due to a history of head bleed. The patient was informed of the risks and benefits and had the capacity to maker her own medical decisions. Her metoprolol was continued. She had an episode of atrial fibrillation on telemetry, however EKG done shortly thereafter showed sinus tachycardia. Her amiodarone was initially held due to concerns of worsening chronic hypoxic respiratory failure which was evaluate by pulmonology while inpatient and thought to be secondary to pulmonary artery hypertension from scleroderma. She was discharged home on her home amiodarone. IDDM No changes were made to the patient's home insulin regimen. HTN The patient's blood pressure was well controlled while inpatient on her home medications. On her day of discharge her blood pressure was elevated and she was discharged home with her home clonidine, metoprolol and hydralazine. CREST Will need outpatient follow up with pulmonology and rheumatology. INES Continued on NIPPV during this admission. PT rec home with home PT OT Consults: Dr Portillo Romeo, nephrology, consulted for JORGE on CKD requiring HD with positive P-ANCA Dr Raimundo Wall, pulmonology, consulted for chronic hypoxic respiratory failure with pleural effusion Procedures: Transthoracic echocardiogram 12/16/2017 Final Impressions: Left Ventricle: Normal left ventricular size and systolic function. No regional wall motion abnormalities. LVEF is 60-65% by Biplane Modified Schmitt's Method. Diastolic dysfunction could not be reliably determined due to mitral annular calcification. E/E' is >15. Mitral Valve: There is moderate mitral annular calcification with thickening and calcification of the mitral valve leaflets. There is mild mitral valve stenosis. Peak gradient is17 mmHg. Mean gradient is 5mmHg. Right Ventricle: Normal right ventricular size and systolic function. Left Atrium: The left atrium appears moderately dilated in size. ROSALIA is 42.26 ml/m2. Tricuspid Valve: Severe pulmonary hypertension. Right ventricular systolic pressure is estimated at 65 mmHg. CXR 12/13/2017 IMPRESSION: PULMONARY VENOUS CONGESTION WITH INTERSTITIAL EDEMA. ?SMALL BILATERAL PLEURAL EFFUSIONS. ?LEFT LOWER LOBE CONSOLIDATION ? 1. Lines, Tubes, and Devices: ?The tip of the left internal jugular and dual-lumen ?catheter is at the cephalad portion of the right atrium ? 2. Lungs and Pleura: ?Limited inspiratory effort. ?Groundglass density in both lungs that has developed since the previous examination. ?Consolidation in the retrocardiac aspect of the left lower lobe. ?Small right pleural effusion. ? Probable small left pleural effusion. ? 3. Cardiomediastinal silhouette: ?The cardiac silhouette is not well delineated secondary to the pulmonary process in the left chest CXR 12/14/2017 IMPRESSION: ? Cardiomegaly. ? No pleural effusions. ? Prominent central vasculature suggesting an element of vascular congestion. EKG 12/12/2017 Diagnosis:SINUS BRADYCARDIA WITH PREMATURE ATRIAL COMPLEXES POSSIBLE ANTERIOR INFARCT , AGE UNDETERMINED ABNORMAL ECG WHEN COMPARED WITH ECG OF 23-MAR-2016 03:10, PREMATURE ATRIAL COMPLEXES ARE NOW PRESENT NONSPECIFIC T WAVE ABNORMALITY, WORSE IN ANTERIOR LEADS EKG 12/13/2017 Diagnosis:SINUS TACHYCARDIA WITH PREMATURE SUPRAVENTRICULAR COMPLEXES NONSPECIFIC T WAVE ABNORMALITY ABNORMAL ECG WHEN COMPARED WITH ECG OF 13-DEC-2017 03:22, PREMATURE SUPRAVENTRICULAR COMPLEXES ARE NOW PRESENT VENT. RATE HAS INCREASED BY ?55 BPM EKG 12/14/2017 Diagnosis:NORMAL SINUS RHYTHM NORMAL ECG WHEN COMPARED WITH ECG OF 13-DEC-2017 22:05, VENT. RATE HAS DECREASED BY ?47 BPM NON-SPECIFIC CHANGE IN ST SEGMENT IN ANTERIOR LEADS Tests Pending at time of Discharge: final results of renal biopsy Discharge Instructions: Diet: diabetic, low salt Activity restrictions: home with PTOT Follow-up: With primary care provider, Mat Duffy MD, within 1 to 2 weeks. Follow up with OP rabble furnace tender in 2-4 weeks. Follow up with child support agent in 2 weeks. Disease Education provided to patient and family. Home health care: established with [facility] Discussed with the attending upon discharge as listed above, and they agree with the plan. Lori Mcgill DO December 17, 2017 7:16 PM Internal Medicine, PGY1 Pager: [phone] [facility] Evaluated Independently on 12/17/2017 Agree with the above notes by Dr. Hsu with the following additions Vitals stable Exam is unremarkable Labs noted Stable for discharge Discussed with patient and family regarding condition and plan MRF reviewed All abnormalities in lab, images and other investigations will be followed by PCP/[facility]. Discussed with the patient in detail regarding the above abnormalities and a need for a follow up. Attestation signed by Vani Hodge MD [facility] Attending December 18, 2017 10:05 PM GLUCOSE METER Collected: 12/17/2017 Status: F Source: [facility] 6:32 AM HEALTH SYSTEM REPOSITORY TYPE CODE TESTS RESULT OUT OF REFERENCE UNITS RANGE LAB GLUBL(LOINC 70-99 mg/dL ) High Glucose Meter 207 Result Comment: RN NOTIFIED Performed By: #### GLMET #### [place] [id number] HEMOGRAM Collected: 12/17/2017 Status: F Source: [facility] 4:30 AM HEALTH SYSTEM REPOSITORY TYPE CODE TESTS RESULT OUT OF REFERENCE UNITS RANGE LAB WBC(LOINC) 3.98-10.04 thou/cmm WBC 4.62 LAB RBC(LOINC) 3.93-5.22 mil/cmm Low RBC 2.54 LAB HGB(LOINC) 11.2-15.7 g/dL Low Hgb 7.3 LAB HCT(LOINC) 34.1-44.9 % Low Hct 25.2 LAB MCV(LOINC) 79.4-94.8 fl High MCV 99.2 LAB MCH(LOINC) 25.6-32.2 pg MCH 28.7 LAB MCHC(LOINC) 31.6-34.8 % Low MCHC 29.0 LAB RDW(LOINC) 11.7-14.4 % High RDW 15.6 LAB RDWSD(LOINC 36.4-46.3 fl ) High RDW SD 55.9 LAB PLT(LOINC) 182-369 thou/cmm Low Platelet 126 LAB MPV(LOINC) 9.4-12.3 fl MPV 9.9 Performed By: #### CBC1 #### [facility] [address] [place] [address] BASIC PANEL Collected: 12/17/2017 Status: F Source: [facility] 4:30 AM HEALTH SYSTEM REPOSITORY TYPE CODE TESTS RESULT OUT OF REFERENCE UNITS RANGE LAB NA(LOINC) 136-145 mEq/L Sodium Blood 139 LAB K(LOINC) 3.5-5.1 mEq/L Potassium Blood 4.5 LAB CL(LOINC) 98-107 mEq/L Chloride Blood 103 LAB CO2(LOINC) 21-32 mEq/L CO2 Blood 31 LAB GLU(LOINC) 70-99 mg/dL Glucose High Blood 238 LAB BUN(LOINC) 7-18 mg/dL BUN High Blood 54 LAB CREA(LOINC 0.51-0.95 mg/dL ) High Creatinine Blood 2.93 LAB CA(LOINC) 8.5-10.1 mg/dL Low Calcium Blood 8.4 LAB ANGAP(LOIN 8-16 C) Anion Gap 10 Performed By: #### P8 #### [place] [address] MDRD GFR Collected: 12/17/2017 Status: F Source: [facility] 4:30 AM HEALTH SYSTEM REPOSITORY TYPE CODE TESTS RESULT OUT OF RANGE REFERENCE UNITS LAB GFRFN(LOINC >60mL/min/1.73m ) 2 eGFR 15.85 Result Comment: If the patient is , multiply the result by 1.210. Performed By: #### GFR #### [facility] [address] [place] [address] GLUCOSE METER Collected: 12/16/2017 Status: F Source: [facility] 8:36 PM HEALTH SYSTEM REPOSITORY TYPE CODE TESTS RESULT OUT OF REFERENCE UNITS RANGE LAB GLUBL(LOINC 70-99 mg/dL ) High Glucose Meter 270 Result Comment: RN NOTIFIED Performed By: #### GLMET #### [place] [id number] GLUCOSE METER Collected: 12/16/2017 Status: F Source: [facility] 4:07 PM HEALTH SYSTEM REPOSITORY TYPE CODE TESTS RESULT OUT OF REFERENCE UNITS RANGE LAB GLUBL(LOINC 70-99 mg/dL ) High Glucose Meter 193 Result Comment: RN NOTIFIED Performed By: #### GLMET #### [facility] [address] [place] [id number] NURSING PROG Observed: 12/16/2017 Status: COMPLETED Source: [place] 4:05 PM [facility] OTHER [place] REPOSITORY HNO ID: [id number] Author: Laura (Rn) ELI Castillo Service: (none) Author Type: Registered Nurse Type: Nursing Progress Note Filed: 12/16/2017 4:06 PM Note Text: Spoke with Dr. Mcgill from [facility] to request about pain medication per pt request. Dr. Mcgill says orders will be put in. BRIEF OP NOT Observed: 12/16/2017 Status: COMPLETED Source: [place] 3:54 PM [facility] REPOSITORY HNO ID: [id number] Author: Maurizio Winkler Service: Vascular Surgery Author Type: Physician Type: Brief Op Note Filed: 12/16/2017 3:55 PM Note Text: BRIEF OPERATIVE / PROCEDURE NOTE LOG ID: [id number] Surgery/Procedure Date: 12/16/2017 Incision/Procedure Start Time: Incision Close/Procedure End Time: Surgeon(s)/Proceduralist(s) and Casket Assembler(s): Surgeon(s) and Role: * Maurizio Winkler - Primary No Additional Staff Procedure(s): Exchange of L IJ tunneled HD cath Anesthesia: Local Findings: None. Good blood draw and push following exchange. Estimated Blood Loss: 0 ml Specimens: None Complications: None Pre-Op/Pre-Procedure Diagnosis: ESRD Post-Op/Post-Procedure Diagnosis: * No post-op diagnosis entered * same SIGNATURE: Maurizio Winkler MD PATIENT NAME: Michael Garcia DATE: December 16, 2017 TIME: 3:54 PM PAGER/CONTACT #: [id number] TUNN DIALYSIS/SAME Observed: 12/16/2017 Status: F Source: [facility] ACCESS [id number] 3:45 PM HEALTH SYSTEM REPOSITORY Performed at [facility] APPROVED BY: MAURIZIO WINKLER MD EXAM TITLE: HEART AND VASCULAR ULTRASOUND AND FLUOROSCOPICALLY GUIDED PLACEMENT OF TUNNELED DIALYSIS CATHETER DATE: 12/16/2017 14:13 COMPARISON: None. CLINICAL INDICATION/HISTORY: The patient is an 72-year-old female with renal failure in need of dialysis. Patient had a left-sided tunneled dialysis catheter placed in an outside hospital less than on e week ago and it has been unable to be used. Exchanges been requested. TECHNIQUE: The procedure was performed by Maurizio Winkler M.D. Informed consent was obtained from the patient. All elements of maximal barrier technique including cap and mask, sterile gown, sterile gloves, large sterile drape, hand hygiene, and appropriate prep agent for cutaneous antisepsis were utilized and m aintained for this procedure. The left-sided internal jugular tunneled catheter was accessed with a guidewire. Utilizing guidewire exchange and Seldinger technique a peel- away sheath was placed. A 23 cm cuff to tip Medcomp tunnele d dialysis catheter was from an appropriate skin entrance site over the lateral neck and shoulder to the peel-away sheath and then passed down into the central venous system. The tips of the dialysis c atheter are near the superior vena cava right atrial junction. The peel-away sheath was removed and the overlying skin was sutured and bandaged. The tunnel exit site of the catheter was secured with a cerclage stitch and bandaged. Each dialysis port was flushed with appropriate amounts of heparin. FINDINGS: The spot film demonstrates the tips of the dialysis catheter near the superior vena cava right atrial junction. IMPRESSION: Technically successful exchange of tunneled dialysis catheter. NURSING PROG Observed: 12/16/2017 Status: COMPLETED Source: [place] 12:33 PM [facility] REPOSITORY HNO ID: [id number] Author: Manju AnguianoRn) ELI Quiroga Service: Dialysis Author Type: Registered Nurse Type: Nursing Progress Note Filed: 12/16/2017 12:36 PM Note Text: Received pt in dialysis LIC Diaysis catheter not workind Dr Jenkins notified Order placed for IR to change catheter Will monitor closely NURSING PROG Observed: 12/16/2017 Status: COMPLETED Source: [place] 11:51 AM [facility] REPOSITORY HNO ID: [id number] Author: Janeth AnguianoRn) ELI Pfeiffer Service: Cardiovascular Testing Author Type: Registered Nurse Type: Nursing Progress Note Filed: 12/16/2017 11:53 AM Note Text: Definity IVP given for Image enhancement per protocol. No signs of infiltration, tolerated well GLUCOSE METER Collected: 12/16/2017 Status: F Source: [facility] 10:46 AM HEALTH SYSTEM REPOSITORY TYPE CODE TESTS RESULT OUT OF REFERENCE UNITS RANGE LAB GLUBL(LOINC 70-99 mg/dL ) High Glucose Meter 283 Result Comment: RN NOTIFIED Performed By: #### GLMET #### [facility] [address] [place] [address] PROGRESS Observed: 12/16/2017 Status: COMPLETED Source: [place] 10:13 AM CLINIC OTHER CAMPUS REPOSITORY HNO ID: [id number] Author: Domingo Jenkins Service: Nephrology Author Type: Physician Type: Progress Notes Filed: 12/16/2017 5:19 PM Note Text: MEDICAL STUDENT PROGRESS NOTE Nephrology Service, SERVICE DATE: 12/16/2017 SERVICE TIME: 10:14 AM Attending Note TEACHING PHYSICIAN NOTE OF PERSONAL INVOLVEMENT IN CARE: I have interviewed the patient and updated the medical student's PFS history, and ROS as necessary. I have re-performed the HPI, Physical Examination, Assessment and Plan as noted below. HPI: Exam: Assessment: Plan: Signature: Feroz Moody Ms Service Date: 12/16/2017 Service Time: 10:14 AM This note was generated by a MEDICAL STUDENT working under the supervision of an Attending Physician and is not authenticated until addended and cosigned by the Attending Physician at the beginning of this note. SUBJECTIVE CHIEF COMPLAINT: INTERVAL HISTORY OF PRESENT ILLNESS: Patient has been at [facility] since Friday night. The Patient reports that she is doing well today, and slept well last night. Patient had a kidney biopsy yesterday 12/15 and will be receiving Plasmapheresis today for her positive PANCA serology. Patient reports good appitite for breakfast. Pt denies nausea vomiting and diarrhea. Pt denies chest pain, SOB, or headache. Pt Reports that she made about 1/4 cup of urine in the past two days. The urine has been clear in color and without dysuria.Pt. Has PMHX of HTN CREST, DM 2 (which typically has Gluc of 200) CKD stage 3, Hypoxic respiratory failure and wears 3.5 L of Nasal o2 at home. MEDICATIONS: Current hospital medications: perflutren lipid microspheres 1.1 mg/mL 1.3 mL injection (DEFINITY) 1.3 mL INTRAVENOUS PRN(NO DISPENSE) insulin lispro 4 Units pen (rapid acting) (HumaLOG KWIKPEN) 4 Units SUBCUTANEOUS w MEALS loratadine 5 mg tab(s) (CLARITIN) 5 mg ORAL DAILY insulin lispro pen (rapid acting) (HumaLOG KWIKPEN) SUBCUTANEOUS w MEALS fluticasone 50 mcg/actuation 1 [place] (FLONASE) 1 [place] EACH NOSTRIL DAILY pill splitter (patient-specific) 1 Each Miscell. (Med.Supl.;Non- Drugs) PRN atorvastatin 40 mg tab(s) (LIPITOR) 40 mg ORAL AT BEDTIME epoetin osvaldo 3,000 Units injection (PROCRIT) 3,000 Units INTRAVENOUS 3 Times weekly with dialysis heparin 1,000 unit/mL 3,800 Units injection 3,800 Units INTRALUMINAL 3 Times weekly with dialysis polyethylene glycol 3350 17 g packet (MIRALAX, GLYCOLAX) 17 g ORAL DAILY senna-docusate 8.6-50 mg 1 tablet (SENNA-S) 1 tablet ORAL AT BEDTIME insulin glargine 39 Units pen (long acting) (LANTUS SOLOSTAR, BASAGLAR) 39 Units SUBCUTANEOUS AT BEDTIME metoprolol tartrate (short acting) 12.5 mg tab(s) (LOPRESSOR) 12.5 mg ORAL q 12 H sodium chloride-aloe vera topical nasal gel (AYR GEL w/ALOE) INTRANASAL PRN albuterol HFA 90 mcg/actuation 2 Puff (PROVENTIL HFA, VENTOLIN HFA) 2 Puff INHALATION q 4 H PRN cloNIDine HCl 0.1 mg tab(s) (CATAPRES) 0.[address] TID [address] 40 mg tab(s) (PROTONIX) 40 mg ORAL DAILY dextrose 40 % 15 g 15 g ORAL PRN glucagon 1 mg injection (GLUCAGEN) 1 mg INTRAMUSCULAR PRN dextrose 50% in water 25 mL syringe 12.5 g INTRAVENOUS PRN OBJECTIVE PHYSICAL EXAM: BP 118/52 Pulse (!) 58 Temp 36.7 ?C (98.1 ?F) (Oral) Resp 18 Ht 165.1 cm (5' 5) Wt 98.5 kg (217 lb 2.5 oz) SpO2 98% BMI 36.14 kg/m2 Body mass index is 36.14 kg/(m2). GENERAL: Alert, no distress, cooperative Resp: CTAB Abd: Nontender Extremities: miinimal edema CV: noraml heart sounds no murmur noted. DATA: Diagnostic tests reviewed for today's visit: ASSESSMENT AND PLAN: 1- JORGE on CKD. 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 HD MWF. Last HGD session was yesterday 12/15 2nd session of PEX tomorrow. Will continue total of 5 sessions every other day Kidney Bx yesterday 12/15 if GPA present will do pulse steroids, rituximab and plasmapheresis for 2 weeks tota ?? 2-Anemia: HGB - 8.4. continue TEZ with HD session ?? 3- HTN: BP is well controlled. Continue the same meds ?? 4- DM: glycemic control is as per the primary service ?? DVT Prophylaxis: Intermittent pneumatic compression device (IPCD) SIGNATURE: Feroz Moody Ms PATIENT NAME: Michael Garcia DATE: December 16, 2017 TIME: 10:13 AM PAGER/CONTACT #: Renal attending addendum Patient was seen and examined independently. Agree with above. Discussed case with Dr Zamora from pathology. Surprisingly, renal biopsy did not show any crescents. Good sample with more than 60 glomeruli. About 1/3 rd are globally sclerosed, consistent with CKD stage 3. Some background diabetes. No vasculitis. Likely renal failure from ATN. IF results not available but this is unlikely to telephone exchange operator pANCA was positive but no clinical manifestations. Catheter malfunctioned today so could not dialyze. Plan Catheter exchange today HD tomorrow and as per schedule MWF. Looking at the creatinine values, she may recover soon. No plans for TPE Can dc tomorrow once HD done She already has an outpatient spot at [facility] ALLIED HEALTH Observed: 12/16/2017 Status: COMPLETED Source: [place] 8:51 AM CLINIC OTHER CAMPUS REPOSITORY HNO ID: [id number] Author: Roxann Arango) ELI Harry Service: Home Care Services Author Type: Registered Nurse Type: Allied Health Filed: 12/16/2017 8:52 AM Note Text: DIRECTOR OF GIFT PLANNING NOTE SERVICE DATE: 12/16/2017 SERVICE TIME: 8:51 AM Referral: Home Care referral received by: RO Patient is active with [facility] agency for skilled care Will continue to follow for physician orders SIGNATURE: Roxann Harry RN PATIENT NAME: Michael Garcia DATE: December 16, 2017 TIME: 8:51 AM PROGRESS Observed: 12/16/2017 Status: COMPLETED Source: [place] 8:49 AM CLINIC OTHER CAMPUS REPOSITORY HNO ID: [id number] Author: Vani Hodge Service: General Internal Medicine Author Type: Physician Type: Progress Notes Filed: 12/16/2017 9:53 PM Note Text: [facility] DAILY PROGRESS NOTE SERVICE DATE: 12/16/2017 SERVICE TIME: 8:49 AM This is a 72 year old female with PMHx of CREST, HTN, CAD, Chronic respiratory failure on 3.5 L home O2 and T2DM with recent hospital admission for PNA, UTI, new onset Afib, c.diff, and JORGE requiring HD admitted currently per recommendation from child support agent for evaluation and management of p ANCA vasculitis.S/p renal biopsy yesterday to look for RPGN and for definitive diagnosis. Patient with Pulm HTN and recurrent PNA, CXR with pleural effusion, pulmonology following, no thoracentesis due to insufficient fluid for collection. INTERVAL HISTORY: Pt seen and examined, no acute events overnight. Patient states she feels like her breathing is back to baseline, has no complaints at this time. She denies fevers, chills, nausea, vomiting, diarrhea, cough, shortness of breath. MEDICATIONS: Current hospital medications: perflutren lipid microspheres 1.1 mg/mL 1.3 mL injection (DEFINITY) 1.3 mL INTRAVENOUS PRN(NO DISPENSE) insulin lispro 4 Units pen (rapid acting) (HumaLOG KWIKPEN) 4 Units SUBCUTANEOUS w MEALS loratadine 5 mg tab(s) (CLARITIN) 5 mg ORAL DAILY insulin lispro pen (rapid acting) (HumaLOG KWIKPEN) SUBCUTANEOUS w MEALS fluticasone 50 mcg/actuation 1 [place] (FLONASE) 1 [place] EACH NOSTRIL DAILY pill splitter (patient-specific) 1 Each Miscell. (Med.Supl.;Non- Drugs) PRN atorvastatin 40 mg tab(s) (LIPITOR) 40 mg ORAL AT BEDTIME epoetin osvaldo 3,000 Units injection (PROCRIT) 3,000 Units INTRAVENOUS 3 Times weekly with dialysis heparin 1,000 unit/mL 3,800 Units injection 3,800 Units INTRALUMINAL 3 Times weekly with dialysis polyethylene glycol 3350 17 g packet (MIRALAX, GLYCOLAX) 17 g ORAL DAILY senna-docusate 8.6-50 mg 1 tablet (SENNA-S) 1 tablet ORAL AT BEDTIME insulin glargine 39 Units pen (long acting) (LANTUS SOLOSTAR, BASAGLAR) 39 Units SUBCUTANEOUS AT BEDTIME metoprolol tartrate (short acting) 12.5 mg tab(s) (LOPRESSOR) 12.5 mg ORAL q 12 H sodium chloride-aloe vera topical nasal gel (AYR GEL w/ALOE) INTRANASAL PRN albuterol HFA 90 mcg/actuation 2 Puff (PROVENTIL HFA, VENTOLIN HFA) 2 Puff INHALATION q 4 H PRN cloNIDine HCl 0.1 mg tab(s) (CATAPRES) 0.[address] TID [address] 40 mg tab(s) (PROTONIX) 40 mg ORAL DAILY dextrose 40 % 15 g 15 g ORAL PRN glucagon 1 mg injection (GLUCAGEN) 1 mg INTRAMUSCULAR PRN dextrose 50% in water 25 mL syringe 12.5 g INTRAVENOUS PRN HOME MEDICATIONS: amiodarone (PACERONE) 200 mg tablet Take 200 mg by mouth once daily. aspirin, enteric coated (ECOTRIN) 325 mg EC tablet Take 325 mg by mouth daily with breakfast. FERREX 150 150 mg iron capsule Take 1 capsule by mouth once daily. pantoprazole DR (PROTONIX) 40 mg tablet Take 1 tablet by mouth once daily. LANTUS SOLOSTAR 100 unit/mL (3 mL) inpn INJECT 39 UNITS SUBCUTANEOUSLY TWICE DAILY NOVOLOG FLEXPEN 100 unit/mL inpn INJECT 4 TIMES DAILY DIRECTED. GLUCOSE LESS THAN 150 = 0 U; 150-199=2 U; 200-249=4 U; 250-299=6 U; 300-349=8 U; >350=10 U gabapentin (NEURONTIN) 300 mg capsule Take 1 capsule by mouth daily at bedtime. hydrALAZINE (APRESOLINE) 100 mg tablet Take 1 tablet by mouth three times daily. cloNIDine HCl (CATAPRES) 0.1 mg tablet Take 1 tablet by mouth three times daily. metoprolol succinate ER (TOPROL XL) 25 mg 24 hr tablet Take 1 tablet by mouth once daily. furosemide (LASIX) 40 mg tablet Take 1.5 tablets by mouth once daily. atorvastatin (LIPITOR) 40 mg tablet Take 1 tablet by mouth daily at bedtime. For cholesterol. gabapentin (NEURONTIN) 100 mg capsule Take one(1) tablet two(2) times daily. COMPOUNDED PRESCRIPTION Portable oxygen Dx: Hypoxemia. R09.02. 3 LPM via NC continuous. ergocalciferol, vitamin D2, (VITAMIN D) 50,000 unit capsule Take 1 capsule by mouth once every month. albuterol HFA (VENTOLIN HFA) 90 mcg/actuation inhaler Inhale 2 Puffs as instructed every 4 hours as needed for Wheezing/Shortness of Breath. PHYSICAL EXAM: 12/15/17 2346 12/16/17 0321 12/16/17 0742 12/16/17 0838 BP: (!) 137/48 95/52 118/52 Pulse: 67 67 60 (!) 58 Resp: Temp: 36.8 ?C (98.2 ?F) 36.7 ?C (98.1 ?F) TempSrc: Oral Oral SpO2: 97% 100% 98% Weight: 98.5 kg (217 lb 2.5 oz) Height: INTAKE/OUTPUT Intake/Output Summary (Last 24 hours) at 12/16/17 0849 Last data filed at 12/15/17 2335 Gross per 24 hour Intake 240 ml Output 3 ml Net 237 ml General: Awake and alert, in no distress, cooperative, left chest port present Neck: Supple without JVD or Lymphadenopathy Cardiac: RRR, S1S2 with no MGR Lungs: Bilateral basal creps, mild. No accessory muscle use. Abdomen: Soft non-tender, non-distended, normal bowel sounds Extremities: 2+ bilateral UE and bilateral pedal edema, no clubbing or skin discoloration. LAB DATA: Recent Labs 12/16/17 0325 12/15/17 0315 12/15/17 0310 12/13/17 2330 WBC 4.80 5.33 -- < > -- RBC 2.70* 2.90* -- < > -- HB 7.8* 8.4* -- < > -- HCT 25.5* 26.9* -- < > -- MCV 94.4 92.8 -- < > -- MCH 28.9 29.0 -- < > -- MCHC 30.6* 31.2* -- < > -- PLT 126* 134* -- < > -- MPV 9.7 9.6 -- < > -- GLUC 206* 177* -- < > -- BUN 48* 36* -- < > -- CREAT 2.92* 2.76* -- < > -- NA 136 134* -- < > -- K 4.3 3.6 -- < > -- CHLOR 100 96* -- < > -- CO2 30 32 -- < > -- TPROT -- -- 6.2* -- 6.3* CA 8.2* 8.0* -- < > -- PTSEC -- 10.3 -- -- -- APTT -- 23.7 -- -- -- INR -- 0.97 -- -- -- MG -- -- -- -- 1.6 < > = values in this interval not displayed. ASSESSMENT AND PLAN: Active Hospital Problems Diagnosis - JORGE (acute kidney injury) (HCC) ? JORGE on CKD? - needing intermittent dialysis -s/p renal biopsy - P- ANCA is elevated, suspecting microscopic polyangitis - Last HD and plasmapheresis on 12/13/17, will receive next session today - plan per nephrology is to c/w MWF HD, alternate day plasmapheresis for 5 sessions -GUILLAUME pending ? Para pneumonic effusion with left LL consolidation - Baseline O2 requirement 3.5L - Hx of recurrent PNA contributing to respiratory failure, Hx of CREST - echocardiogram planned for today - Pulmonology following, stable from respiratory standpoint for discharge, will need RHC for evaluation of PAH - Chest pain - No acute ST/T wave changes on EKG with negative troponin, V/Q scan with low probability for PE, WELLS score 0 with low probability ?? DM2: - Onbasal insulin - Will add scheduled meal time insulin - SSI for better blood glucose control - monitor glucose Ac/ HS. ?? HTN - Hold Hydralazine 2/2 autoimmune issues - Continue Clonidine - Held lasix - patient with gradually improving UO - Restarted metoprolol in setting of afib ?? Mild Gastritis - Continue with PPI ?? A.fib - Bradycardic - on metoprolol - Will hold Amiodarone 2/2 braducardia - records from [facility] reviewed, not on anticoagulation 2/2 anemia and hx of intra cerebral bleed, discussed with patient and she understands the risks and benefits in detail. Patient completely understands risk associated and verbalized the same, choosing to forgo anticoagulation ?? CREST ? Constipation - on senna ?? PAD - Continue ASA, Statin ?? INES - CPAP at night ?? Nasal pressure ulcer (POA)?2/2 cpap mask ?? DVT PPX - Lovenox renal dose SIGNATURE: Lori Mcgill DO PATIENT NAME: Michael Garcia DATE: December 16, 2017 TIME: 8:49 AM Pager: [phone] Evaluated independently Agree with the above notes by which reflects my input with the following additions Awaiting for renal biopsy and echo Attestation signed by Vani Hodge MD [facility] [place] Attending December 16, 2017 9:51 PM NURSING PROG Observed: 12/16/2017 Status: COMPLETED Source: [place] 8:45 AM [facility] REPOSITORY HNO ID: [id number] Author: Laura AnguianoRn) ELI Castillo Service: (none) Author Type: Registered Nurse Type: Nursing Progress Note Filed: 12/16/2017 8:46 AM Note Text: Continuous pulse ox discontinued per pulm orders. PROGRESS Observed: 12/16/2017 Status: COMPLETED Source: [place] 8:13 AM [facility] REPOSITORY HNO ID: [id number] Author: Umu Rios CNP Service: Pulmonary Disease Author Type: Nurse Practitioner Type: Progress Notes Filed: 12/16/2017 8:34 AM Note Text: Attestation signed by Raimundo Wall at 12/16/2017 9:04 AM [facility] STAFF PHYSICIAN NOTE OF PERSONAL INVOLVEMENT IN CARE I have reviewed the documentation by the AYLEEN and I personally participated in the martinez components on 8100. I have discussed the case and management of the patient's care. The following comments revise or confirm relevant martinez components of the note.Data reviewed. US: no thora needed , not surprised p ANCA noted, post renal biopsy Outside CT abd no major basilar lung issue or fibrosis mentioned Plan: Ok for discharge Home 02 Likely needs RHC with ?PAH therapy per outside pulm Dr Valencia stated per family, as expect Scleroderma progression. No need cellcept for ILD currently. No real signs of pANCA vasculitis or pneumonitis lungs currently, ??two major diagnosis here SIGNATURE: Raimundo Wall MD [facility] TIME of SERVICE: 9:01 AM PULMONARY/CCM PROGRESS NOTE CCAG SERVICE DATE: December 16, 2017 SERVICE TIME: 8:13 AM Subjective Denies any complaints today. My breathing feels back to my normal baseline AND my sinus congestion and post nasal drip are much improved. No shortness of breath, cough, phlegm, fevers or chills. Objective CURRENT MEDICATIONS Current Facility-Administered Medications: perflutren lipid microspheres 1.1 mg/mL 1.3 mL injection (DEFINITY) 1.3 mL INTRAVENOUS PRN(NO DISPENSE) Teresa Palacio CNP insulin lispro 4 Units pen (rapid acting) (HumaLOG KWIKPEN) 4 Units SUBCUTANEOUS w MEALS Kyrarmvir (Res) Ayaan 4 Units at 12/15/17 1624 loratadine 5 mg tab(s) (CLARITIN) 5 mg ORAL DAILY Dharmvir (Res) Ayaan insulin lispro pen (rapid acting) (HumaLOG KWIKPEN) SUBCUTANEOUS w MEALS Jordyn Decker (Res) Jose Alfredo fluticasone 50 mcg/actuation 1 [place] (FLONASE) 1 [place] EACH NOSTRIL DAILY Umu Hyatt) JULIO C Rios 1 [place] at 12/15/17 0855 pill splitter (patient-specific) 1 Each Miscell. (Med.Supl.;Non- Drugs) PRN Bianca Lobo atorvastatin 40 mg tab(s) (LIPITOR) 40 mg ORAL AT BEDTIME Roulan (Res) Abu Hweij 40 mg at 12/15/172026 epoetin osvaldo 3,000 Units injection (PROCRIT) 3,000 Units INTRAVENOUS 3 Times weekly with dialysis Nidia Jones MD 3,000 Units at 12/13/17 1800 heparin 1,000 unit/mL 3,800 Units injection 3,800 Units INTRALUMINAL 3 Times weekly with dialysis Nidia Jones MD 3,800 Units at 12/13/17 1845 polyethylene glycol 3350 17 g packet (MIRALAX, GLYCOLAX) 17 g ORAL DAILY Bianca Lobo 17 g at 12/14/17 0824 senna-docusate 8.6-50 mg 1 tablet (SENNA-S) 1 tablet ORAL AT BEDTIME Bianca Lobo 1 tablet at 12/15/172026 insulin glargine 39 Units pen (long acting) (LANTUS SOLOSTAR, BASAGLAR) 39 Units SUBCUTANEOUS AT BEDTIME Roulan (Res) Abu Hweij 39 Units at 12/15/172026 metoprolol tartrate (short acting) 12.5 mg tab(s) (LOPRESSOR) 12.5 mg ORAL q 12 H Luisa (Res) Sharkhatunyan 12.5 mg at 12/15/172026 sodium chloride-aloe vera topical nasal gel (AYR GEL w/ALOE) INTRANASAL PRN Luisa (Res) Sharkhatunyan 1 application at 12/13/17 2315 albuterol HFA 90 mcg/actuation 2 Puff (PROVENTIL HFA, VENTOLIN HFA) 2 Puff INHALATION q 4 H PRN Bianca Lobo cloNIDine HCl 0.1 mg tab(s) (CATAPRES) 0.1 mg ORAL TID Noman (Res) Vura 0.1 mg at 12/15/17[address] 40 mg tab(s) (PROTONIX) 40 mg ORAL DAILY Noman (Res) Vura 40 mg at 12/15/17 0855 dextrose 40 % 15 g 15 g ORAL PRN Noman (Res) Vura Or glucagon 1 mg injection (GLUCAGEN) 1 mg INTRAMUSCULAR PRN Noman (Res) Vura Or dextrose 50% in water 25 mL syringe 12.5 g INTRAVENOUS PRN Noman (Res) Vura Intake/Output Summary (Last 24 hours) at 12/16/17 0813 Last data filed at 12/15/17 2335 Gross per 24 hour Intake 240 ml Output 3 ml Net 237 ml NEW LABS/MICRO DATA/RADIOLOGY FILMS NO MICROBIOLOGY DATA BNP 82595 PROCALCITONIN 0.29 BMP: Glucose (mg/dL) Date Value 12/16/2017 206 Potassium (mEq/L) Date Value 12/16/2017 4.3 Sodium (mEq/L) Date Value 12/16/2017 136 Chloride (mEq/L) Date Value 12/16/2017 100 CO2 (mEq/L) Date Value 12/16/2017 30 Creatinine (mg/dL) Date Value 12/16/2017 2.92 BUN (mg/dL) Date Value 12/16/2017 48 Anion Gap (no units) Date Value 12/16/2017 10 Calcium (mg/dL) Date Value 12/16/2017 8.2 CBC: Hemoglobin (g/dL) Date Value 08/09/2017 9.3 06/08/2016 11.9 HGB (g/dL) Date Value 12/16/2017 7.8 12/15/2017 8.4 12/14/2017 9.3 Hematocrit (%) Date Value 12/16/2017 25.5 12/15/2017 26.9 12/14/2017 29.8 WBC (thou/cmm) Date Value 12/16/2017 4.80 12/15/2017 5.33 12/14/2017 5.72 CXR 12/13/17 PULMONARY VENOUS CONGESTION WITH INTERSTITIAL EDEMA. ?SMALL BILATERAL PLEURAL EFFUSIONS. ?LEFT LOWER LOBE CONSOLIDATION VQ SCAN 12/14/17 SCINTIGRAPHIC FINDINGS ASSOCIATED WITH A LOW PROBABILITY ?OF PULMONARY EMBOLISM. CXR 12/14/17 Cardiomegaly. ? No pleural effusions. ? Prominent central vasculature suggesting an element of vascular congestion. US CHEST 12/15/17: No left pleural effusion is identified. ?A left thoracentesis was not performed. 12/15/17202312/15/17 2346 12/16/17 0321 12/16/17 0742 BP: 143/56 (!) 137/48 95/52 Pulse: 65 67 67 60 Resp: Temp: 36.8 ?C (98.2 ?F) 36.7 ?C (98.1 ?F) TempSrc: Oral Oral SpO2: 97% 100% 98% Weight: 98.5 kg (217 lb 2.5 oz) Height: PHYSICAL EXAM: VITALS: as above, reviewed. Stable on home baseline O2 of 3.5LO2 GENERAL: AAOx3, pleasant, obese, sitting up in bedside recliner in NAD. at bedside RESPIRATORY: CTA with diminished breath sounds in the bases. Even/unlabored respirations at rest. No accessory muscle use, pursed lip breathing, wheezing or conversational dyspnea. On 3.5LO2 CARDIOVASCULAR: Normal S1S2, RRR. No edema. GI: Abdomen soft, nondistended, nontender, bowel sounds present x4. +palpable umbilical hernia EXTREMITIES: No clubbing or cyanosis. MAEx4. Left chest tunneled HD cath C/D/I ASSESSMENT AND PLAN: 1) Acute on Chronic Hypoxic and Hypercapnic Respiratory Failure - multifactorial - resolved, stable on baseline home oxygen 3.5LO2. Keep sats >90%. VQ Scan with low probability PE. Increase activity as able AND encourage IS Q1H / up out of bed to chair. Continue with PRN Albuterol. Discontinue continuous pulse oximetry. Check ambulatory pulse oximetry prior to discharge. 2) Bilateral Pulmonary Infiltrates vs Pulmonary Edema (L > R) with Small Left Pleural Effusion - etiology unclear - volume vs infectious, though favor the former given no clinical signs or symptoms of pneumonia and low procalcitonin. Left thoracentesis was unable to be completed yesterday due to no fluid upon ultrasound. Suspect etiology is mostly volume related with elevated BNP. Continue to monitor off antibiotics AND continue with HD per nephrology. Awaiting repeat echocardiogram. 3) URI - likely viral - continue with Flonase, Loratadine, PRN Albuterol. No indication for antibiotics or steroids. 4) Moderate Pulmonary HTN (per echocardiogram, RVSP 51) - suspect WHO group II/III +/- group I. No indication for PAH directed therapies at this time. Continue with optimization of comorbidities. OP follow up with Dr. Valencia in [place]. May eventually need RHC. 5) Acute on Chronic Diastolic HF with EF 65% - continue with BB and volume management via HD. Keep O>I, check daily weights, CHF Diet. Await repeat echocardiogram. 6) INES - CPAP compliant QHS and PRN all sleep 7) Obesity - BMI 36.5 - weight loss strongly encouraged. 8) JORGE on CKD s/p renal biopsy 12/15 - Continue with management per Nephrology. 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 Continue with HD and PRN Plasmapheresis. Await biopsy results. 9) CREST Syndrome/Scleroderma 10) Recent LLL Pneumonia - completed treatment with Zosyn and Levaquin. Continue with plan outlined above and monitor off antibiotics. 11) MMP - per primary 12) Discharge Planning - Patient remains stable from a pulmonary standpoint. Await renal biopsy as above. We will follow PRN as we have no current new recommendations. Please call if patient worsens. Plan to follow up with Dr. Valencia in [place] as outlined above. SIGNATURE: Umu Rios CNP PATIENT NAME: Michael Garcia DATE: December 16, 2017 TIME: 8:13 AM PAGER/CONTACT #: [phone] GLUCOSE METER Collected: 12/16/2017 Status: F Source: [facility] 6:39 AM HEALTH SYSTEM REPOSITORY TYPE CODE TESTS RESULT OUT OF REFERENCE UNITS RANGE LAB GLUBL(LOINC 70-99 mg/dL ) High Glucose Meter 250 Result Comment: RN NOTIFIED Performed By: #### GLMET #### [place] [id number] HEMOGRAM Collected: 12/16/2017 Status: F Source: [facility] 3:25 AM HEALTH SYSTEM REPOSITORY TYPE CODE TESTS RESULT OUT OF REFERENCE UNITS RANGE LAB WBC(LOINC) 3.98-10.04 thou/cmm WBC 4.80 LAB RBC(LOINC) 3.93-5.22 mil/cmm Low RBC 2.70 LAB HGB(LOINC) 11.2-15.7 g/dL Low Hgb 7.8 LAB HCT(LOINC) 34.1-44.9 % Low Hct 25.5 LAB MCV(LOINC) 79.4-94.8 fl MCV 94.4 LAB MCH(LOINC) 25.6-32.2 pg MCH 28.9 LAB MCHC(LOINC) 31.6-34.8 % Low MCHC 30.6 LAB RDW(LOINC) 11.7-14.4 % High RDW 15.7 LAB RDWSD(LOINC 36.4-46.3 fl ) High RDW SD 54.0 LAB PLT(LOINC) 182-369 thou/cmm Low Platelet 126 LAB MPV(LOINC) 9.4-12.3 fl MPV 9.7 Performed By: #### CBC1 #### [place] [id number] BASIC PANEL Collected: 12/16/2017 Status: F Source: [facility] 3:25 AM HEALTH SYSTEM REPOSITORY TYPE CODE TESTS RESULT OUT OF REFERENCE UNITS RANGE LAB NA(LOINC) 136-145 mEq/L Sodium Blood 136 LAB K(LOINC) 3.5-5.1 mEq/L Potassium Blood 4.3 LAB CL(LOINC) 98-107 mEq/L Chloride Blood 100 LAB CO2(LOINC) 21-32 mEq/L CO2 Blood 30 LAB GLU(LOINC) 70-99 mg/dL Glucose High Blood 206 LAB BUN(LOINC) 7-18 mg/dL BUN High Blood 48 LAB CREA(LOINC 0.51-0.95 mg/dL ) High Creatinine Blood 2.92 LAB CA(LOINC) 8.5-10.1 mg/dL Low Calcium Blood 8.2 LAB ANGAP(LOIN 8-16 C) Anion Gap 10 Performed By: #### P8 #### [place] [address] MDRD GFR Collected: 12/16/2017 Status: F Source: [facility] 3:25 AM HEALTH SYSTEM REPOSITORY TYPE CODE TESTS RESULT OUT OF RANGE REFERENCE UNITS LAB GFRFN(LOINC >60mL/min/1.73m ) 2 eGFR 15.91 Result Comment: If the patient is , multiply the result by 1.210. Performed By: #### GFR #### [facility] [address] [place], [place] [address] GLUCOSE METER Collected: 12/15/2017 Status: F Source: [facility] 8:24 PM HEALTH SYSTEM REPOSITORY TYPE CODE TESTS RESULT OUT OF REFERENCE UNITS RANGE LAB GLUBL(LOINC 70-99 mg/dL ) High Glucose Meter 223 Result Comment: RN NOTIFIED Performed By: #### GLMET #### [facility] [address] [place], [place] [address] GLUCOSE METER Collected: 12/15/2017 Status: F Source: [facility] 3:41 PM HEALTH SYSTEM REPOSITORY TYPE CODE TESTS RESULT OUT OF REFERENCE UNITS RANGE LAB GLUBL(LOINC 70-99 mg/dL ) High Glucose Meter 152 Result Comment: RN NOTIFIED Performed By: #### GLMET #### [facility] [address] [place], [place] [address] CASE MGT INIT Observed: 12/15/2017 Status: COMPLETED Source: [facility] 3:14 PM CLINIC OTHER CAMPUS REPOSITORY HNO ID: [id number] Author: Liv (Rn) EIL Fuller Service: Care Management Author Type: Registered Nurse Type: Care Mgt Initial Assessment Filed: 12/15/2017 3:29 PM Note Text: CARE MANAGEMENT: ASSESSMENT AND DISCHARGE PLAN SERVICE DATE: 12/15/2017 SERVICE TIME: 1515 PRIMARY CARE PHYSICIAN: Mat Duffy MD ADMISSION STATUS: Inpatient Needs Prior to Discharge: To Be Determined;OT/PT Evaluation;Pharmacy Bedside Delivery MEDICAL: Patient/Iv Technician Stated Goals: To return home to life as it was Health Insurance: [employer] MEDICARE PPO [employer] Medicare Health Issues Impacting Discharge Plan: None and To be determined Last Admission Date: none Is this Within the Past 30 days? no Health Literacy: 1. How often do you need to have someone help you when you read instructions, pamphlets, or other written material from your doctor or pharmacy? Always - 5 2. How confident are you filling out medical forms by yourself? A little bit - 4 If Patient scores > 3 on either question, the following interventions were put into place: Use of plain language and active listening with Patient and family FUNCTIONAL AND COGNITIVE/BEHAVIORAL PRIOR TO ADMISSION: Baseline Mental Status: Alert AND Oriented, Person, Place , Time and Situation Functional Status: Needs Assistance Does Patient Currently Receive Any Community Services or Home Care? Residential Equipment Prior to Admission: Walker, home O2 3.5 liters nc , rollator, transport chair, shower seat, grab bars Has the Patient Been in a Residential Facility in the Past 30 days? No SOCIAL: Living Arrangement: Home Lives With: Spouse Financial Resources: Retired Primary Contact: Extended Emergency Contact Information Primary Emergency Contact: Jey Garcia Mobile Relation: Spouse Supportive: Yes Other Important Patient Contacts: None Caregiver Assessment: Caregiver is ready, willing and able to meet the patient's needs as recommended by the inter-professional team? Yes Patient's transition needs and plan for meeting these needs: yes Does the patient have an acute stroke diagnosis, or has the patient had a stroke during this admission? No Medication Adherence: I am convinced of the importance of my prescription medication: Agree completely - 0 I worry that my prescription medication will do more harm than good to me Disagree completely - 0 I feel financially burdened by my [id number] expenses for my prescription medication: Disagree completely - 0 Patient is categorized as low risk < 2 Are you interested in bedside delivery of your medications? Yes Food Concerns: In the Last Month, Have You had Trouble Getting Food? No trouble getting food During the Last Month, Have You Worried Whether Your Food Would Run Out Before You Had Enough Money to Buy More? No Is the Patient Psychosocially Complex? No ASSESSMENT AND PLAN: Medical Needs: To be determined Psychosocial Needs: None FREEDOM OF CHOICE EXPLAINED: To be determined POTENTIAL TRANSITION PLANS No Services Indicated To be determined. Pt is a dialysis pt. Pt gets dialysis through [facility] in [place] Every MWF. Chair time 0600. SIGNATURE: Liv Fuller RN PATIENT NAME: Michael Garcia DATE: December 15, 2017 TIME: 3:15 PM PAGER/CONTACT #: [phone] PLAN OF CARE Observed: 12/15/2017 Status: COMPLETED Source: [place] 3:03 PM CLINIC OTHER CAMPUS REPOSITORY O ID: [id number] Author: Belinda Rice (Hydroelectric Production Manager) Service: Pharmacy Author Type: Pharmacist Type: Plan of Care Filed: 12/15/2017 4:27 PM Note Text: MEDICATION HISTORY Patient Name:Valeria Garcia : 1945 Source of history:Family: Reliability of source: Appears reliable, clearly identified: Medication name, Medication dose and Medication route and Pharmacy records: [facility] Medication Nonadherence Identified: No barriers noted The above information represents the best possible medication history: Yes Additional comments: Patient's states she no longer takes Ventolin. 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 12/12/2017 at Unknown time Yes aspirin, enteric coated (ECOTRIN) 325 mg EC tablet Take 325 mg by mouth daily with breakfast. 12/12/2017 at Unknown time Yes FERREX 150 150 mg iron capsule Take 1 capsule by mouth once daily. 12/12/2017 at Unknown time Yes pantoprazole DR (PROTONIX) 40 mg tablet Take 1 tablet by mouth once daily. 12/12/2017 at Unknown time Yes LANTUS SOLOSTAR 100 unit/mL (3 mL) inpn INJECT 39 UNITS SUBCUTANEOUSLY TWICE DAILY 12/12/2017 at Unknown time Yes NOVOLOG FLEXPEN 100 unit/mL inpn INJECT 4 TIMES DAILY DIRECTED. GLUCOSE LESS THAN 150 = 0 U; 150-199=2 U; 200-249=4 U; 250-299=6 U; 300-349=8 U; >350=10 U 12/12/2017 at Unknown time Yes gabapentin (NEURONTIN) 300 mg capsule Take 1 capsule by mouth daily at bedtime. 12/11/2017 at Unknown time Yes hydrALAZINE (APRESOLINE) 100 mg tablet Take 1 tablet by mouth three times daily. 12/12/2017 at Unknown time Yes cloNIDine HCl (CATAPRES) 0.1 mg tablet Take 1 tablet by mouth three times daily. 12/12/2017 at Unknown time Yes metoprolol succinate ER (TOPROL XL) 25 mg 24 hr tablet Take 1 tablet by mouth once daily. 12/12/2017 at Unknown time Yes furosemide (LASIX) 40 mg tablet Take 1.5 tablets by mouth once daily. 12/12/2017 at Unknown time Yes atorvastatin (LIPITOR) 40 mg tablet Take 1 tablet by mouth daily at bedtime. For cholesterol. 12/11/2017 at Unknown time Yes COMPOUNDED PRESCRIPTION Portable oxygen Dx: Hypoxemia. R09.02. 3 LPM via NC continuous. ergocalciferol, vitamin D2, (VITAMIN D) 50,000 unit capsule Take 1 capsule by mouth once every month. albuterol HFA (VENTOLIN HFA) 90 mcg/actuation inhaler Inhale 2 Puffs as instructed every 4 hours as needed for Wheezing/Shortness of Breath. Padma Bangura (Sponge Packer) December 15, 2017 3:03 PM I discussed medication history with pharmacy technician instructor. I removed a duplicate vitamin D order from the patient's medication list. BELINDA RICE, PHARMACIST 4:[address] NEEDLE BIOPSY Observed: 12/15/2017 Status: F Source: [facility] RENAL 2:48 PM HEALTH SYSTEM REPOSITORY Performed at [facility] APPROVED BY: Manuel Mcgee MD EXAM TITLE: CT-GUIDED BIOPSY LEFT KIDNEY DATE: 12/15/2017 13:00 COMPARISON: None. CLINICAL INDICATION/HISTORY: Acute kidney injury PROCEDURE: The procedure was discussed with the patient including the risks, benefits and alternatives. After all the patient's questions were answered written and verbal consent was obtained. The patient was pl aced in the prone position. Limited CT scanning through the abdomen was performed. The inferior pole of the left kidney was identified. The skin overlying the left flank was marked, prepped and drape d in a sterile fashion. A timeout was performed. Local anesthesia with 10 mL of 1% lidocaine was administered. The patient also received moderate sedation. Under CT guidance a 17-gauge introducer ne edle was advanced to the inferior margin of the left kidney. Through the introducer needle an 18-gauge core biopsy needle was advanced and 3 core biopsy passes performed. The biopsy was technically di fficult due to patient motion during the procedure. The patient tolerated the procedure well and there are no immediate complications. Intra-service time (monitoring for moderate sedation) (starts with administration of agent, ends when continuous [id number] time ends): 20 minutes. Patient monitoring: I personally supervised and directed an independent trained observer who assisted in monitoring the patient?s level of consciousness and physiological status throughout the procedure. Medication: 100 micrograms of fentanyl IV; 2 milligrams of Versed IV IMPRESSION: Technically successful CT-guided random biopsy of left kidney. BRIEF OP NOT Observed: 12/15/2017 Status: COMPLETED Source: [place] 2:27 PM [facility] REPOSITORY HNO ID: [id number] Author: Manuel Mcgee Service: (none) Author Type: Physician Type: Brief Op Note Filed: 12/15/2017 2:28 PM Note Text: INTERVENTIONAL RADIOLOGY POST PROCEDURE NOTE DATE: 12/15/17 NAME: Michael Garcia LOG ID: [id number] Pre-Procedure Diagnosis: Renal failure Post Procedure Diagnosis: Same. 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 0 ml Specimen: Sent for pathology. Complications: None. Full report with procedural details to follow and will become available under Imaging Reports. Please contact for any questions or concerns. HISTORY PHYSICAL Observed: 12/15/2017 Status: COMPLETED Source: [place] 1:42 PM [facility] REPOSITORY HNO ID: [id number] Author: Manuel Mcgee Service: (none) Author Type: Physician Type: HANDP Filed: 12/15/2017 1:43 PM Note Text: INTERVENTIONAL RADIOLOGY PRE-PROCEDURE INTERVAL HISTORY AND PHYSICAL EXAM UPDATE Date: 12/15/17 Name: Michael Garcia The History and Physical (completed in the past 30 days) has been reviewed and the patient has been examined. The contents accurately reflect the patient's condition with the following additions or revisions since the HANDP was completed. Examination indicates no changes. This HANDP can be found in the Electronic Medical Record dated 12/12/17 and 12/13/17. US CHEST B-SCAN Observed: 12/15/2017 Status: F Source: [facility] 1:40 PM HEALTH SYSTEM REPOSITORY Performed at [facility] APPROVED BY: Manuel Mcgee MD EXAM TITLE: ULTRASOUND LEFT CHEST DATE: 12/15/2017 13:32 COMPARISON: None. CLINICAL INDICATION/HISTORY: Left pleural effusion TECHNIQUE: Ultrasound scanning of the left thorax was performed. FINDINGS: No left pleural effusion was identified. IMPRESSION: No left pleural effusion is identified. A left thoracentesis was not performed. GUILLAUME BY IFA SCREEN Collected: 12/15/2017 Status: F Source: [facility] 12:15 PM HEALTH SYSTEM REPOSITORY TYPE CODE TESTS RESULT OUT OF REFERENCE UNITS RANGE LAB ANAX(LOINC) GUILLAUME by IFA SEE BELOW Screen Result Comment: GUILLAUME Positive AB NEGAT Normal range : negative at <1:80 serum dilution. GUILLAUME Titer 1:640 AB NEGAT GUILLAUME Pattern Homogeneous Performing Laboratory: [facility] [address] [place] [address] Performed By: #### ANAX #### [facility] [address] [address] GLUCOSE METER Collected: 12/15/2017 Status: F Source: [facility] 10:48 AM HEALTH SYSTEM REPOSITORY TYPE CODE TESTS RESULT OUT OF REFERENCE UNITS RANGE LAB GLUBL(LOINC 70-99 mg/dL ) High Glucose Meter 175 Result Comment: RN NOTIFIED Performed By: #### GLMET #### [place] [address] PROGRESS Observed: 12/15/2017 Status: COMPLETED Source: [place] 10:36 AM CLINIC OTHER CAMPUS REPOSITORY HNO ID: [id number] Author: Vani Hodge Service: Nephrology Author Type: Physician Type: Progress Notes Filed: 12/15/2017 9:51 PM Note Text: MEDICAL STUDENT PROGRESS NOTE Nephrology Service SERVICE DATE: 12/15/2017 SERVICE TIME: 10:36 AM Attending Note TEACHING PHYSICIAN NOTE OF PERSONAL INVOLVEMENT IN CARE: I have interviewed the patient and updated the medical student's PFS history, and ROS as necessary. I have re-performed the HPI, Physical Examination, Assessment and Plan as noted below. HPI: No new complaints, says she has been voiding more, breathing is ok Exam: As below. Assessment: JORGE, CKD stage 3, p ANCA positive serology Plan: Kidney biopsy today, if GPA present will do pulse steroids, rituximab and plasmapheresis for 2 weeks total. Hold plasmapheresis today to avoid bleeding risk with biopsy HD as per schedule depending on labs Signature: Feroz Yurman Ms Service Date: 12/15/2017 Service Time: 10:37 AM This note was generated by a MEDICAL STUDENT working under the supervision of an Attending Physician and is not authenticated until addended and cosigned by the Attending Physician at the beginning of this note. SUBJECTIVE CHIEF COMPLAINT: INTERVAL HISTORY OF PRESENT ILLNESS: Patient has been at [facility] since Friday night. Patient reports that she was at a hospital in [place] being treated for pneumonia and UTI and was receiving HD at that time for JORGE. The pt. was instructed to come of [facility] for kidney biopsy. Pt. Will undergo kidney Biopsy today 12/15 and receive plasmapheresis tomorrow d/t elevated P-ANCA levels. Pt. Reports that she had been making very small amount of urine for the past week, with the exception of yesterday when she made a lot of urine. Pt endorses chest pain with deep inspiration in a collar distribution across her chest bilaterally. Pt. Has PMHX of HTN CREST, DM 2 (which typically has Gluc of 200) CKD stage 3, Hypoxic respiratory failure and wears 3.5 L of Nasal o2 at home. Patient received last HD on 12/13, and is scheduled for HD today 12/15. Pt. Denies fever, headache, or SOB at this time. Other than her bout of PNA last week, patient denies chronic sinusitis or upper respiratory discomfort. Pt resports increased swelling in her ankles. MEDICATIONS: Current hospital medications: perflutren lipid microspheres 1.1 mg/mL 1.3 mL injection (DEFINITY) 1.3 mL INTRAVENOUS PRN(NO DISPENSE) fluticasone 50 mcg/actuation 1 [place] (FLONASE) 1 [place] EACH NOSTRIL DAILY loratadine 10 mg tab(s) (CLARITIN) 10 mg ORAL DAILY pill splitter (patient-specific) 1 Each Miscell. (Med.Supl.;Non- Drugs) PRN insulin regular human injection (short acting) (NovoLIN R,HumuLIN R) SUBCUTANEOUS w MEALS atorvastatin 40 mg tab(s) (LIPITOR) 40 mg ORAL AT BEDTIME epoetin osvaldo 3,000 Units injection (PROCRIT) 3,000 Units INTRAVENOUS 3 Times weekly with dialysis heparin 1,000 unit/mL 3,800 Units injection 3,800 Units INTRALUMINAL 3 Times weekly with dialysis polyethylene glycol 3350 17 g packet (MIRALAX, GLYCOLAX) 17 g ORAL DAILY senna-docusate 8.6-50 mg 1 tablet (SENNA-S) 1 tablet ORAL AT BEDTIME insulin glargine 39 Units pen (long acting) (LANTUS SOLOSTAR, BASAGLAR) 39 Units SUBCUTANEOUS AT BEDTIME metoprolol tartrate (short acting) 12.5 mg tab(s) (LOPRESSOR) 12.5 mg ORAL q 12 H sodium chloride-aloe vera topical nasal gel (AYR GEL w/ALOE) INTRANASAL PRN albuterol HFA 90 mcg/actuation 2 Puff (PROVENTIL HFA, VENTOLIN HFA) 2 Puff INHALATION q 4 H PRN cloNIDine HCl 0.1 mg tab(s) (CATAPRES) 0.1 mg ORAL TID pantoprazole DR 40 mg tab(s) (PROTONIX) 40 mg ORAL DAILY dextrose 40 % 15 g 15 g ORAL PRN glucagon 1 mg injection (GLUCAGEN) 1 mg INTRAMUSCULAR PRN dextrose 50% in water 25 mL syringe 12.5 g INTRAVENOUS PRN OBJECTIVE PHYSICAL EXAM: BP (!) 126/46 Pulse 65 Temp 36.8 ?C (98.2 ?F) (Oral) Resp 18 Ht 165.1 cm (5' 5) Wt 99.5 kg (219 lb 5.7 oz) SpO2 96% BMI 36.5 kg/m2 Body mass index is 36.5 kg/(m2). GENERAL: Alert, no distress, cooperative CV: normal heart sounds, irregular rhythm Resp: Diminished lung sounds bilaterally. No wheezes ronchi or crackles Abd: nt, soft nd Skin: no rashes or petechiae, edema of the right hand. No Edema of LEs DATA: Diagnostic tests reviewed for today's visit: BCB CMP Vitals ASSESSMENT AND PLAN: 1- JORGE on CKD. 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 HD MWF. Last HD session 12/13 Next HD session today 12/15. 2nd session of PEX tomorrow. Will continue total of 5 sessions every other day Kidney Bx today 12/15 Patient will eventually needs Rituxan and prednisone if Kidney Bx is + for P-ANCA ?? 2-Anemia: HGB - 8.4. continue TEZ with HD session ?? 3- HTN: BP is well controlled. Continue the same meds ?? 4- DM: glycemic control is as per the primary service ?? DVT Prophylaxis: Intermittent pneumatic compression device (IPCD) SIGNATURE: Feroz Moody Ms PATIENT NAME: Michael Garcia DATE: December 15, 2017 TIME: 10:36 AM PAGER/CONTACT #: PROGRESS Observed: 12/15/2017 Status: COMPLETED Source: [place] 10:22 AM CLINIC OTHER CAMPUS REPOSITORY HNO ID: [id number] Author: Vani Hodge Service: General Internal Medicine Author Type: Physician Type: Progress Notes Filed: 12/15/2017 9:47 PM Note Text: [facility] DAILY PROGRESS NOTE SERVICE DATE: 12/15/2017 SERVICE TIME: 8:26 AM This is a 72 year old female with PMHx of CREST, HTN, CAD, Chronic respiratory failure on 3.5 L home O2 and T2DM with recent hospital admission for PNA, UTI, new onset Afib, c.diff, and JORGE requiring HD admitted currently per recommendation from child support agent for evaluation and management of p ANCA vasculitis. Scheduled for renal biopsy today to look for RPGN and for definitive diagnosis. Patient with Pulm HTN and recurrent PNA, CXR with pleural effusion, pulmonology following, scheduled for thoracentesis today. INTERVAL HISTORY: Patient with no acute events overnight. Overall finds her breathing better. Denies fever/chills/abdominal pain/low back pain. MEDICATIONS: Current hospital medications: perflutren lipid microspheres 1.1 mg/mL 1.3 mL injection (DEFINITY) 1.3 mL INTRAVENOUS PRN(NO DISPENSE) fluticasone 50 mcg/actuation 1 [place] (FLONASE) 1 [place] EACH NOSTRIL DAILY loratadine 10 mg tab(s) (CLARITIN) 10 mg ORAL DAILY pill splitter (patient-specific) 1 Each Miscell. (Med.Supl.;Non- Drugs) PRN insulin regular human injection (short acting) (NovoLIN R,HumuLIN R) SUBCUTANEOUS w MEALS atorvastatin 40 mg tab(s) (LIPITOR) 40 mg ORAL AT BEDTIME epoetin osvaldo 3,000 Units injection (PROCRIT) 3,000 Units INTRAVENOUS 3 Times weekly with dialysis heparin 1,000 unit/mL 3,800 Units injection 3,800 Units INTRALUMINAL 3 Times weekly with dialysis polyethylene glycol 3350 17 g packet (MIRALAX, GLYCOLAX) 17 g ORAL DAILY senna-docusate 8.6-50 mg 1 tablet (SENNA-S) 1 tablet ORAL AT BEDTIME insulin glargine 39 Units pen (long acting) (LANTUS SOLOSTAR, BASAGLAR) 39 Units SUBCUTANEOUS AT BEDTIME metoprolol tartrate (short acting) 12.5 mg tab(s) (LOPRESSOR) 12.5 mg ORAL q 12 H sodium chloride-aloe vera topical nasal gel (AYR GEL w/ALOE) INTRANASAL PRN albuterol HFA 90 mcg/actuation 2 Puff (PROVENTIL HFA, VENTOLIN HFA) 2 Puff INHALATION q 4 H PRN cloNIDine HCl 0.1 mg tab(s) (CATAPRES) 0.1 mg ORAL TID pantoprazole DR 40 mg tab(s) (PROTONIX) 40 mg ORAL DAILY dextrose 40 % 15 g 15 g ORAL PRN glucagon 1 mg injection (GLUCAGEN) 1 mg INTRAMUSCULAR PRN dextrose 50% in water 25 mL syringe 12.5 g INTRAVENOUS PRN HOME MEDICATIONS: cholecalciferol, vitamin D3, 50,000 unit tab Take 1 tablet by mouth once every month. amiodarone (PACERONE) 200 mg tablet Take 200 mg by mouth once daily. aspirin, enteric coated (ECOTRIN) 325 mg EC tablet Take 325 mg by mouth daily with breakfast. FERREX 150 150 mg iron capsule Take 1 capsule by mouth once daily. pantoprazole DR (PROTONIX) 40 mg tablet Take 1 tablet by mouth once daily. LANTUS SOLOSTAR 100 unit/mL (3 mL) inpn INJECT 39 UNITS SUBCUTANEOUSLY TWICE DAILY NOVOLOG FLEXPEN 100 unit/mL inpn INJECT 4 TIMES DAILY DIRECTED. GLUCOSE LESS THAN 150 = 0 U; 150-199=2 U; 200-249=4 U; 250-299=6 U; 300-349=8 U; >350=10 U gabapentin (NEURONTIN) 300 mg capsule Take 1 capsule by mouth daily at bedtime. hydrALAZINE (APRESOLINE) 100 mg tablet Take 1 tablet by mouth three times daily. cloNIDine HCl (CATAPRES) 0.1 mg tablet Take 1 tablet by mouth three times daily. metoprolol succinate ER (TOPROL XL) 25 mg 24 hr tablet Take 1 tablet by mouth once daily. furosemide (LASIX) 40 mg tablet Take 1.5 tablets by mouth once daily. atorvastatin (LIPITOR) 40 mg tablet Take 1 tablet by mouth daily at bedtime. For cholesterol. gabapentin (NEURONTIN) 100 mg capsule Take one(1) tablet two(2) times daily. COMPOUNDED PRESCRIPTION Portable oxygen Dx: Hypoxemia. R09.02. 3 LPM via NC continuous. ergocalciferol, vitamin D2, (VITAMIN D) 50,000 unit capsule Take 1 capsule by mouth once every month. albuterol HFA (VENTOLIN HFA) 90 mcg/actuation inhaler Inhale 2 Puffs as instructed every 4 hours as needed for Wheezing/Shortness of Breath. PHYSICAL EXAM: 12/15/17 0500 12/15/17 0600 12/15/17 0653 12/15/17 0700 BP: (!) 126/46 Pulse: 65 Resp: 18 Temp: 36.8 ?C (98.2 ?F) TempSrc: Oral SpO2: 100% 96% 95% 96% Weight: Height: INTAKE/OUTPUT Intake/Output Summary (Last 24 hours) at 12/15/17 1022 Last data filed at 12/15/17 0044 Gross per 24 hour Intake 360 ml Output 2 ml Net 358 ml General: Awake and alert, in no distress, cooperative, left chest port present Neck: Supple without JVD or Lymphadenopathy Cardiac: RRR, S1S2 with no MGR Lungs: Bilateral basal creps, mild. No accessory muscle use. Abdomen: Soft non-tender, non-distended, normal bowel sounds Extremities: 2+ bilateral UE and bilateral pedal edema, no clubbing or skin discoloration. LAB DATA: Recent Labs 12/13/17 0305 12/12/17 1620 TROPI 0.016 -- WBC 9.10 8.85 RBC 2.90* 2.96* HB 8.5* 8.7* HCT 27.7* 28.7* MCV 95.5* 97.0* MCH 29.3 29.4 MCHC 30.7* 30.3* PLT 174* 168* MPV 9.9 10.3 GLUC 209* 139* BUN 59* 51* CREAT 3.70* 3.23* NA 136 135* K 4.2 4.2 CHLOR 99 98 CO2 32 32 TPROT -- 7.3 ALB -- 2.5* CA 8.6 8.6 ALKPHOS -- 72 TBILI -- 0.3 AST -- 12 ALT -- 7* MG -- 2.3 ASSESSMENT AND PLAN: Active Hospital Problems Diagnosis - JORGE (acute kidney injury) (HCC) PLAN FOR THE DAY ? Plan per nephrology is to c/w MWF HD, alternate day plasmapheresis for 5 sessions and to obtain renal biopsy on 12/15/17 ? Recurrent Chest pains - No acute ST/T wave changes on EKG with negative troponin, V/Q scan with low probability for PE, WELLS score 0 with low probability ? Para pneumonic effusion, scheduled for thoracentesis 12/15/17, pulmonology following ? C/W metoprolol as patient is with Afib. Family unwilling to c/w anti coagulation given her hx of intra cranial bleed. Explained risks and benefits in detail. Patient completely understands risk associated and verbalized the same. ? C/W lantus 39 units QHS, will schedule meal time insulin. C/W SSI ? Will adjust claritin dose for her renal function ? JORGE on CKD needing dialysis - P- ANCA is elevated, suspecting microscopic polyangitis - Last HD and plasmapheresis on 12/13/17, will receive next session today - plan per nephrology is to c/w MWF HD, alternate day plasmapheresis for 5 sessions and to obtain renal biopsy on 12/15/17 - Will check GUILLAUME given pleural and pericardial effusion Para pneumonic effusion with left LL consolidation - Baseline O2 requirement 3.5L - PCT WNL - Hx of recurrent PNA contributing to respiratory failure - Hx of CREST - Recent echo with RVSP 51mmHg, LVEF 65%, stage 2 diastolic dysfunction, pericardial effusion with no tamponade - Pulmonology following - Scheduled for thoracentesis 12/15/17 - Chest pain - No acute ST/T wave changes on EKG with negative troponin, V/Q scan with low probability for PE, WELLS score 0 with low probability ? DM2: - Onbasal insulin - Will add scheduled meal time insulin - SSI for better blood glucose control - monitor glucose Ac/ HS. ? HTN - Hold Hydralazine 2/2 autoimmune issues - Continue Clonidine - Held lasix - patient with gradually improving UO - Restarted metoprolol in setting of afib ? Mild Gastritis - Continue with PPI ? A.fib - Bradycardic - on metoprolol - Will hold Amiodarone 2/2 pulm HTN - records from [place] reviewed, not on anticoagulation 2/2 anemia and hx of intra cerebral bleed ? CREST Constipation - on senna ? PAD - Continue ASA, Statin ? INES - CPAP at night ? Nasal pressure ulcer (POA) 2/2 cpap mask ? DVT PPX - Lovenox renal dose SIGNATURE: Jordyn Veliz MD PATIENT NAME: Michael Garcia DATE: December 15, 2017 TIME: 8:26 AM Pager: [phone] Transferred to my service Chart reviewed Evaluated independently Discussed with Dr. Veliz and agree with above notes which reflect my input with following additions Awaiting for renal biopsy Discussed with patient Attestation signed by Vani Hodge MD [facility] [place] Attending December 15, 2017 9:46 PM THERAPY NT Observed: 12/15/2017 Status: COMPLETED Source: [place] 8:50 AM CLINIC OTHER CAMPUS REPOSITORY HNO ID: [id number] Author: Frances (Pt) Wang PT Service: Physical Therapy Author Type: Physical Therapist Type: Therapy (PT/OT/Speech/Resp) Filed: 12/15/2017 8:56 AM Note Text: Physical Therapy Evaluation SERVICE DATE: 12/15/2017 SERVICE TIME: 804 to 834 ROOM: [id number] Recommended Discharge Disposition: Home PT Anticipated Discharge Needs: Physical Assist at Home;Supervision at Home Physical Assist at Home for: Transfers;Ambulation;Cleaning;Laundry;Meals;Stairs;Safety;Transportation Supervision at Home due to: Decreased safety awareness PT Recommendations to Nursing: With assist of 1 person;Sit at edge of bed *do not leave patient unattended at edge of bed at end* (Amb with wheeled walker to bathroom/around room) PT 6 Clicks Score: 15 Precautions/Activity Restrictions: Bed/Chair Alarm;Lines/Tubes/Drains;Fall Risk Precaution/Activity Restriction Comments: 3L O2, pulse ox monitor ASSESSMENT : Patient presents with personal factors, comorbidities and results of the PT examination that require moderate complexity decision making. The patient requires skilled physical therapy to address multiple PT problems in order for the patient to return to a baseline functional level. Tolerated Full Session (but with noted fatigue; Nabila exertion rating of 7) Physical Therapy Problem List: Education Deficit;Safety Deficits;Decreased Strength;Functional Mobility Impairment Patient /Caregiver Goals: Go Home Goals for Plan of Care: Rolling with: Contact Guard Assistance Transfer supine to/from sit with: Contact Guard Assistance Transfer sit to/from stand with: Supervision Ambulate with: Stand By Assistance Distance: 25x2 Device: Wheeled Walker Goal: Able to perform LE gen strengthening ex 2x15 ea Goal: Able to amb 15ft with SpO2 >95 Rehab Potential: Good PLAN: Treatment Frequency (times per week): 5 (1-5) Current admission Treatment Interventions: Education;Energy Conservation Training;Strengthening;Functional Mobility Training;Balance Training;Neuromuscular Re-education Plan of Care developed with: Patient;Caregiver TREATMENT INTERVENTIONS: Therapy Diagnosis: Reduced mobility-other;Muscle Weakness (generalized);Abnormalities of gait and mobility-other Interventions Provided: Evaluation;Gait Training (50897) $ Evaluation-Moderate (14862) Billed Units: 1 unit Gait Training (21614) Treatment Minutes: 8 1 unit Skilled Intervention(s): Instruction in sit to stand technique with proper hand placement and body positioning at edge of bed/chair, Instruction in stand to sit technique with LE's touching chair/bed and reaching back for surface, Instruction in sequencing, gait pattern, Instruction in correction of gait deviations, Instruction in use of equipment, cues for sequence and pattern Pt required constant cuing and education on fall prevention and staying within FWW while amb and navigating direction change/turns Patient required assistance verbally and physically to safely negotiate O2 tubing while amb in room Multiple verbal cues for proper hand placement during [id number] transfers Patient set up in chair with call light and phone in reach on bedside table. Advised to use call light and wait for assist to get back to bed Nurse informed patient up in chair Total Timed Code Treatment Minutes: 8 Total Treatment Time (minutes): 30 FUNCTIONAL G CODE: PT 6 Clicks Score: 15 (12/15/17804) Mobility: Walking and Moving Around Current Status (G8978): CK (12/15/17804) Mobility: Walking and Moving Around Goal Status (G8979): CJ (12/15/17804) Based on clinical assessment and the score on the 6 Clicks Functional Assessment Tool, the G code and corresponding severity modifiers are documented above. SUBJECTIVE: Current Hospital Course: Chart reviewed; . 72 year old female that presented to hospital due to chest pain. Active Hospital Problems Diagnosis - JORGE (acute kidney injury) ([facility]) PAST MEDICAL HISTORY Diagnosis Date - Cerebellar hemorrhage, acute (HCC) 04/04/2016 - CKD (chronic kidney disease) stage 3, GFR 30-59 ml/min 04/04/2016 - CREST variant of scleroderma (HCC) 04/04/2016 - Diabetic peripheral neuropathy associated with type 2 diabetes mellitus ([facility]) 01/19/2016 - Essential hypertension with goal blood pressure less than 130/85 01/19/2016 - Hyperlipidemia 01/19/2016 - Ischemic ulcer of finger with necrosis of muscle (HCC) 01/19/2016 Left 3rd finger tip - Lazy eye of left side - Legally blind 01/19/2016 - Primary osteoarthritis of right knee 01/19/2016 - Retinal hemorrhage of right eye 2007 - S/P craniotomy 04/04/2016 - Type 2 diabetes mellitus with renal manifestations ([facility]) 01/19/2016 Dr. Romeo, nephrology - Umbilical hernia without obstruction and without gangrene 01/19/2016 PAST SURGICAL HISTORY Procedure Laterality Date - ACHILLES TENDON SURGERY HX Right 1995 - BREAST BIOPSY CORE Left 2013 benign - [facility]2017 Colonoscopy w/bx [facility] - EGD W/O OR W/BRUSH/WASH 10/27/2017 EGD w/bx [facility] - LAPAROSCOPIC CHOLEYCYSTECTOMY Cholecystectomy, lap - REMOVAL OF TONSILS,<12 Y/O 1974 Tonsillectomy - REPAIR ROTATOR CUFF,ACUTE Right 1986 - REVISE MEDIAN N/CARPAL TUNNEL SURG Right 1989 - REVISE ULNAR NERVE AT ELBOW Right 1989 Patient Report: Lying on her back in bed. States her stomach and chest are uncomfortable. Rates 7/10 discomfort. Agreeable to PT Home Environment Patient Lives With: Significant Other ([address]story [facility]) Assistance Available: 24 Hour Entry To Home: Stairs Number Of Stairs Into Home: 2 ( going to get railing) Number Of Stairs To Bed/Bath: 0 (Able to stay on 1st floor) Tub/Shower Type: standard ( helps) Laundry: Equipment Owned: Cane;Grab Bars-Shower;Wheeled Walker;Rollator Prior Functional Level: Required Assistance Assistance Required With: Ambulation;Cleaning;Laundry;Meals;Stairs;Safety;Self Care;Transportation Prior Functional Level Comments: cva 2016, only amb in home with assist OBJECTIVE: CURRENT FUNCTIONAL STATUS: Current Functional Mobility Assist Level Additional Information Rolling Minimal Assistance Supine to Sit Minimal Assistance Sit to Supine Scooting Sit to Stand Contact Guard Assistance Stand to Sit Contact Guard Assistance Bed to Chair Toilet/Commode Gait Contact Guard Assistance Gait Device: Wheeled Walker Gait Distance (feet): 15x2 General Gait Deviations: Halle decreased;Step length decreased;Flexed trunk posture Please see discipline specific clinical documentation flowsheet for complete details for this therapy evaluation/treatment. SIGNATURE: Frances Piña PT PATIENT NAME: Michael Garcia DATE: December 15, 2017 TIME: 8:50 AM PAGER/CONTACT #: [phone] PROGRESS Observed: 12/15/2017 Status: COMPLETED Source: [place] 8:16 AM [facility] OTHER CAMPUS REPOSITORY HNO ID: [id number] Author: Teresa Palacio CNP Service: Pulmonary Disease Author Type: Nurse Practitioner Type: Progress Notes Filed: 12/15/2017 8:36 AM Note Text: Attestation signed by Raimundo Wall at 12/15/2017 9:18 AM [facility] STAFF PHYSICIAN NOTE OF PERSONAL INVOLVEMENT IN CARE I have reviewed the documentation by the AYLEEN and I personally participated in the martinez components. I have discussed the case and management of the patient's care. The following comments revise or confirm relevant martinez components of the note. Patient seen and examined. Data reviewed. Discussed with ; discussed PAH needs followup and may need RHC To see if needs thora via US Will follow up ;with Dr Jose Valencia Pulm noted Holding at SIGNATURE: Raimundo Wall MD [facility] TIME of SERVICE: 9:16 AM PULMONARY/CCM PROGRESS NOTE [facility] SERVICE DATE: December 15, 2017 SERVICE TIME: 8:16 AM Subjective Denies shortness of breath at rest, but does admit to some [place] Denies cough or phlegm production Still complaining of sinus draining and post nasal drip Denies chest pain, fevers/chills/sweats, nausea/vomiting/diarrhea Wears 3.5LO2 at home Objective CURRENT MEDICATIONS Current Facility-Administered Medications: fluticasone 50 mcg/actuation 1 [place] (FLONASE) 1 [place] EACH NOSTRIL DAILY Umu (Offc Spec) Gabriel, TOP LOADER 1 [place] at 12/14/17 1211 loratadine 10 mg tab(s) (CLARITIN) 10 mg ORAL DAILY Umu (Offc Spec) [place], TOP LOADER 10 mg at 12/14/17 1210 pill splitter (patient-specific) 1 Each Miscell. (Med.Supl.;Non- Drugs) PRN Bianca Lobo insulin regular human injection (short acting) (NovoLIN R,HumuLIN R) SUBCUTANEOUS w MEALS Roulan (Res) [place] Hweij 6 Units at 12/14/17 1657 atorvastatin 40 mg tab(s) (LIPITOR) 40 mg ORAL AT BEDTIME [place]oulan (Res) [place] 40 mg at 12/14/17 2018 epoetin osvaldo 3,000 Units injection (PROCRIT) 3,000 Units INTRAVENOUS 3 Times weekly with dialysis Nidia Jones MD 3,000 Units at 12/13/17 1800 heparin 1,000 unit/mL 3,800 Units injection 3,800 Units INTRALUMINAL 3 Times weekly with mckayla Jones MD 3,800 Units at 12/13/17 1845 polyethylene glycol 3350 17 g packet (MIRALAX, GLYCOLAX) 17 g ORAL DAILY Bianca oLbo 17 g at 12/14/17 0824 senna-docusate 8.6-50 mg 1 tablet (SENNA-S) 1 tablet ORAL AT BEDTIME Bianca Lobo 1 tablet at 12/14/17 2018 insulin glargine 39 Units pen (long acting) (LANTUS SOLOSTAR, BASAGLAR) 39 Units SUBCUTANEOUS AT BEDTIME [place]oulan (Res) [place] 39 Units at 12/14/172017 metoprolol tartrate (short acting) 12.5 mg tab(s) (LOPRESSOR) 12.5 mg ORAL q 12 H Luisa (Res) [place]ark[place]un[place] 12.5 mg at 12/14/172017 sodium chloride-aloe vera topical nasal gel (AYR GEL w/ALOE) INTRANASAL PRN Luisa (Res) [place] 1 application at 12/13/17 2315 albuterol HFA 90 mcg/actuation 2 Puff (PROVENTIL HFA, VENTOLIN HFA) 2 Puff INHALATION q 4 H PRN Bianca Lobo cloNIDine HCl 0.1 mg tab(s) (CATAPRES) 0.1 mg ORAL TID Noman (Res) Vura 0.1 mg at 12/14/17[address]opraz[address] 40 mg tab(s) (PROTONIX) 40 mg ORAL DAILY Noman (Res) [place] 40 mg at 12/14/17 0823 dextrose 40 % 15 g 15 g ORAL PRN Noman (Res) Vura Or glucagon 1 mg injection (GLUCAGEN) 1 mg INTRAMUSCULAR PRN Noman (Res) [place] Or dextrose 50% in water 25 mL syringe 12.5 g INTRAVENOUS PRN Noman (Res) [place]ura Intake/Output Summary (Last 24 hours) at 12/15/17 0816 Last data filed at 12/15/17 0044 Gross per 24 hour Intake 360 ml Output 2 ml Net 358 ml NEW LABS/MICRO DATA/RADIOLOGY FILMS NO MICROBIOLOGY DATA BNP 53320 PROCALCITONIN 0.29 BMP: Glucose (mg/dL) Date Value 12/15/2017 177 Potassium (mEq/L) Date Value 12/15/2017 3.6 Sodium (mEq/L) Date Value 12/15/2017 134 Chloride (mEq/L) Date Value 12/15/2017 96 CO2 (mEq/L) Date Value 12/15/2017 32 Creatinine (mg/dL) Date Value 12/15/2017 2.76 BUN (mg/dL) Date Value 12/15/2017 36 Anion Gap (no units) Date Value 12/15/2017 10 Calcium (mg/dL) Date Value 12/15/2017 8.0 CBC: Hemoglobin (g/dL) Date Value 08/09/2017 9.3 06/08/2016 11.9 HGB (g/dL) Date Value 12/15/2017 8.4 12/14/2017 9.3 12/13/2017 8.5 Hematocrit (%) Date Value 12/15/2017 26.9 12/14/2017 29.8 12/13/2017 27.7 WBC (thou/cmm) Date Value 12/15/2017 5.33 12/14/2017 5.72 12/13/2017 9.10 CXR 12/13/17 PULMONARY VENOUS CONGESTION WITH INTERSTITIAL EDEMA. ?SMALL BILATERAL PLEURAL EFFUSIONS. ?LEFT LOWER LOBE CONSOLIDATION VQ SCAN 12/14/17 SCINTIGRAPHIC FINDINGS ASSOCIATED WITH A LOW PROBABILITY ?OF PULMONARY EMBOLISM. CXR 12/14/17 Cardiomegaly. ? No pleural effusions. ? Prominent central vasculature suggesting an element of vascular congestion. 12/15/17 0500 12/15/17 0600 12/15/17 0653 12/15/17 0700 BP: (!) 126/46 Pulse: 65 Resp: 18 Temp: 36.8 ?C (98.2 ?F) TempSrc: Oral SpO2: 100% 96% 95% 96% Weight: Height: PHYSICAL EXAM: VITALS: as above, reviewed. On GENERAL: AAOx3, pleasant, obese, resting in bed, NAD. at bedside RESPIRATORY: CTA with diminished breath sounds in the bases, few scattered crackles posteriorly, even/unlabored respirations at rest. No accessory muscle use, no pursed lip breathing, no wheezing, no conversational dyspnea. On CARDIOVASCULAR: Normal S1S2, RRR. No edema. GI: Abdomen soft, nondistended, nontender, bowel sounds present x4. Umbilical hernia palpable EXTREMITIES: No clubbing or cyanosis. MAEx4. Left chest tunneled HD cath c/d/i ASSESSMENT AND PLAN: 1) Acute on Chronic Hypoxic and Hypercapnic Respiratory Failure - multifactorial - resolved, stable on baseline home oxygen 3.5LO2. Ok to keep sats >90%. VQ Scan low probability PE. Increase activity as able. Encourage IS Q1H, out of bed to chair. Continue with Albuterol PRN. Discontinue continuous pulse oximetry. Check ambulatory pulse oximetry. 2) Bilateral Pulmonary Infiltrates vs Pulmonary Edema (L > R) with Small to Moderate Left Pleural Effusion - etiology either volume vs infectious - no clinical signs or symptoms of pneumonia and procalcitonin low. Suspect etiology is mostly volume related with elevated BNP. Continue to monitor off antibiotics. Await diagnostic left thoracentesis today. Discussed with patient and her the risks and benefits of the procedure and they are agreeable to proceed. Will check repeat echocardiogram. 3) URI - likely viral - continue with Flonase, Loratadine, PRN Albuterol. No indication for antibiotics or steroids. 4) Moderate Pulmonary HTN (per echocardiogram, RVSP 51) - suspect WHO group I/II/III - No indication for PAH directed therapies. Continue with optimization of comorbidities. OP follow up with Dr Valencia in [place]. 5) Acute on Chronic Diastolic HF with EF 65% - continue with BB and volume management via HD. Keep O>I, check daily weights, CHF Diet. Repeat echocardiogram pending. 6) INES - CPAP compliant QHS and PRN all sleep 7) Obesity - BMI 36.5 8) JORGE on CKD - management per Nephrology. 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 Continue with HD and PRN Plasmapheresis. Renal biopsy pending for today. 9) CREST Syndrome/Scleroderma - 10) Recent LLL Pneumonia - completed treatment with Zosyn and Levaquin. Continue with plan outlined above and monitor off antibiotics. SIGNATURE: Teresa Palacio CNP PATIENT NAME: Michael Garcia DATE: December 15, 2017 TIME: 8:16 AM PAGER/CONTACT #: [phone] GLUCOSE METER Collected: 12/15/2017 Status: F Source: [facility] 6:58 AM HEALTH SYSTEM REPOSITORY TYPE CODE TESTS RESULT OUT OF REFERENCE UNITS RANGE LAB GLUBL(LOINC 70-99 mg/dL ) High Glucose Meter 172 Result Comment: RN NOTIFIED Performed By: #### GLMET #### [facility] [address] [place] [address] HEMOGRAM Collected: 12/15/2017 Status: F Source: [facility] 3:15 AM HEALTH SYSTEM REPOSITORY TYPE CODE TESTS RESULT OUT OF REFERENCE UNITS RANGE LAB WBC(LOINC) 3.98-10.04 thou/cmm WBC 5.33 LAB RBC(LOINC) 3.93-5.22 mil/cmm Low RBC 2.90 LAB HGB(LOINC) 11.2-15.7 g/dL Low Hgb 8.4 LAB HCT(LOINC) 34.1-44.9 % Low Hct 26.9 LAB MCV(LOINC) 79.4-94.8 fl MCV 92.8 LAB MCH(LOINC) 25.6-32.2 pg MCH 29.0 LAB MCHC(LOINC) 31.6-34.8 % Low MCHC 31.2 LAB RDW(LOINC) 11.7-14.4 % High RDW 15.7 LAB RDWSD(LOINC 36.4-46.3 fl ) High RDW SD 53.6 LAB PLT(LOINC) 182-369 thou/cmm Low Platelet 134 LAB MPV(LOINC) 9.4-12.3 fl MPV 9.6 Performed By: #### CBC1 #### [facility] [address] [place] [id number] BASIC PANEL Collected: 12/15/2017 Status: F Source: [facility] 3:15 AM HEALTH SYSTEM REPOSITORY TYPE CODE TESTS RESULT OUT OF REFERENCE UNITS RANGE LAB NA(LOINC) 136-145 mEq/L Low Sodium Blood 134 LAB K(LOINC) 3.5-5.1 mEq/L Potassium Blood 3.6 LAB CL(LOINC) 98-107 mEq/L Low Chloride Blood 96 LAB CO2(LOINC) 21-32 mEq/L CO2 Blood 32 LAB GLU(LOINC) 70-99 mg/dL Glucose High Blood 177 LAB BUN(LOINC) 7-18 mg/dL BUN High Blood 36 LAB CREA(LOINC 0.51-0.95 mg/dL ) High Creatinine Blood 2.76 LAB CA(LOINC) 8.5-10.1 mg/dL Low Calcium Blood 8.0 LAB ANGAP(LOIN 8-16 C) Anion Gap 10 Performed By: #### P8 #### [facility] [address] [place] [address] MDRD GFR Collected: 12/15/2017 Status: F Source: [facility] 3:15 AM HEALTH SYSTEM REPOSITORY TYPE CODE TESTS RESULT OUT OF RANGE REFERENCE UNITS LAB GFRFN(LOINC >60mL/min/1.73m ) 2 eGFR 16.98 Result Comment: If the patient is , multiply the result by 1.210. Performed By: #### GFR #### [place] [address] PROTIME Collected: 12/15/2017 Status: F Source: [facility] 3:15 AM HEALTH SYSTEM REPOSITORY TYPE CODE TESTS RESULT OUT OF REFERENCE UNITS RANGE LAB PTI(LOINC) 9.3-11.9 sec Prothrombin Time 10.3 LAB INR(LOINC) INR 0.97 Result Comment: Standard Therapy 2.0-3.0 High Dose 2.5-3.5 Performed By: #### PT #### [place] [address] ACTIVATED PTT Collected: 12/15/2017 Status: F Source: [facility] 3:15 AM HEALTH SYSTEM REPOSITORY TYPE CODE TESTS RESULT OUT OF REFERENCE UNITS RANGE LAB APTT(LOINC 22.0-34.0 sec ) Activated PTT 23.7 Performed By: #### APTT #### [place] [address] LD,TOTAL BLOOD Collected: 12/15/2017 Status: F Source: [facility] 3:10 AM HEALTH SYSTEM REPOSITORY TYPE CODE TESTS RESULT OUT OF RANGE REFERENCE UNITS LAB LDH(LOINC) 84-246 U/L LD,Total 154 Blood Performed By: #### LDH #### [place] [address] TOTAL PROTEIN Collected: 12/15/2017 Status: F Source: [facility] 3:10 AM HEALTH SYSTEM REPOSITORY TYPE CODE TESTS RESULT OUT OF REFERENCE UNITS RANGE LAB TP(LOINC) 6.4-8.2 g/dL Low Total Protein 6.2 Performed By: #### TP #### [address] [address] SURGICAL PATHOLOGY Observed: 12/15/2017 Status: F Source: [place] 12:00 AM [facility] REPOSITORY Specimen #: [id number] Submitting Physician: BIANCA LOBO FINAL DIAGNOSIS Left [place] kidney, biopsy: - 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 - Patchy acute tubular injury. See comment. - Tubular atrophy and interstitial fibrosis, severe. - Arterio- and arteriolosclerosis, severe. LH/ka 12/16/2017 COMMENT The negative immunofluorescence findings provide evidence against active immune complex mediated glomerular disease. Light microscopy shows diabetic nephropathy with a possible component of acute tubular injury. No evidence of a proliferative glomerulonephritis, or ANCA vasculitis is seen. No biopsy findings that would suggest scleroderma-related kidney injury are seen. No active tubulointerstitial inflammatory process is present. Results were discussed with Dr. Cantu at 12:30 p.m. on 12/16/2017. Susanna Zamora MD (Electronic Signature) SPECIMEN SUBMITTED A: LEFT [place] KIDNEY, BIOPSY ([id number]) MICROSCOPIC DESCRIPTION Sections are stained with H&E, PAS, trichrome and Powell. Sections reveal 3 cores of renal cortex, 1 of which has attached medulla. Approximately 68 glomeruli are sampled, 46 of which are globally sclerotic. The remaining 22 glomeruli appear normocellular with patent capillaries. PAS and Powell stains highlight expansion of the mesangium by increased matrix material as well as global thickening of glomerular and tubular basement membranes, consistent with diabetic nephropathy. No crescent formation and no necrotizing features are identified. Trichrome staining shows severe fibrosis involving 60-70% of the cortex sampled. Vessels show severe arterio- and arteriolosclerosis. Tubules display patchy degenerative changes. No red cell casts are seen. Immunofluorescence staining is performed for IgG, IgA, IgM, C3, C1, albumin, kappa and lambda. Approximately 3 open glomeruli and 6 globally sclerotic glomeruli are present for evaluation. There is trace granular mesangial staining for IgM, but the remaining reactants tested are essentially negative in glomeruli. Albumin highlights background tissue architecture. Percy and lambda stain equally throughout the tubulointerstitium. The tissue for electron microscopy samples 1 glomerulus which shows patent capillary lumina. Ultrastructurally, there is increased mesangial matrix and thickening of the GBM. No immune type electron dense deposits are seen. Podocyte foot process effacement is mild to moderate, where well preserved enough to evaluate. There is increased interstitial fibrosis. Laboratory Developed Test (LDT) Disclaimer: Positive and negative controls stain appropriately. Performance characteristics of immunohistochemical, immunofluorescent and chromogenic in-situ hybridization tests have been determined by [facility] Medicine [place] ([facility]) in a manner consistent with CLIA requirements. One or more of these tests have not been cleared or approved by the FDA. [facility] is regulated under CLIA as qualified to perform high-complexity testing. These tests are used for clinical purposes. They should not be regarded as investigational or for research. CLINICAL DATA A 72-YEAR-OLD FEMALE WITH HISTORY OF HYPERTENSION AND DIABETES WELL CKD STAGE 3. SHE PRESENTED WITH SHORTNESS OF BREATH AND JORGE. SEROLOGIC WORKUP CAME BACK POSITIVE FOR P-ANCA AND PLASMAPHERESIS WAS STARTED. CONCERN FOR ANCA VASCULITIS. THE PATIENT ALSO HAS A HISTORY OF CREST. GROSS DESCRIPTION A. Received in [facility] are multiple segments of cylindrical romeo, soft tissue aggregating 5.0 x 0.1 x 0.1 cm. The specimen is washed in maleimide solution. A portion is frozen and kept frozen for direct immunofluorescence. A portion is submitted for electron microscopy. A portion is submitted in formalin for light microscopy in cassette A2. [facility] 12/15/2017 Date of Report: 12/17/2017 Date of Procedure: 12/15/2017 Date of Receipt: 12/15/2017 Submitted by: BIANCA LOBO Location: Diagnostic interpretation performed at [facility], [facility] [place] [address]. SURGICAL TISSUE EXAM Observed: 12/15/2017 Status: F Source: [facility] 12:00 AM HEALTH SYSTEM REPOSITORY Test performed at [place] [address] NAME: MICHAEL GARCIA REQUESTING: BIANCA LOBO MD FINAL DIAGNOSIS: CORE BIOPSY OF LEFT KIDNEY - THE SPECIMEN IS FORWARDED TO THE [facility] FOR PROCESSING AND EVALUATION. OPERATIVE PROCEDURE: CT guided renal biopsy CLINICAL INFORMATION: Renal failure GROSS DESCRIPTION: Left kidney Received in Timo's fixative labeled CT-guided renal biopsy, left kidney, is a segment of kidney tissue sent to [facility] for processing. KVB:hlm EXTERNAL CONSULT, PATHOLOGIST (Electronic signature on file) Signed out: 12/17/2017 12:35 PRINTED: 12/17/2017 Page 1 of 1 Performed By: #### SURG #### [place] [address] PATHOLOGY MISCELLANEOUS Observed: 12/15/2017 Status: F Source: [facility] 12:00 AM HEALTH SYSTEM REPOSITORY Test performed at [place] [address] NAME: JOSE MICHAEL REQUESTING: BIANCA LOBO MD DIAGNOSIS: Left [place] Kidney Biopsy: See the full outside report from [facility]. SPECIMEN: TISSUE FOR SEND-OUT, Kidney Bx - [facility] EXTERNAL CONSULT, PATHOLOGIST (Electronic signature on file) Signed out: 01/02/2018 14:38 PRINTED: 01/02/2018 Page 1 of 1 Performed By: #### MISC #### [place] [address] GLUCOSE METER Collected: 12/14/2017 Status: F Source: [facility] 7:40 PM HEALTH SYSTEM REPOSITORY TYPE CODE TESTS RESULT OUT OF REFERENCE UNITS RANGE LAB GLUBL(LOINC 70-99 mg/dL ) High Glucose Meter 227 Result Comment: RN NOTIFIED Performed By: #### GLMET #### [place] [address] GLUCOSE METER Collected: 12/14/2017 Status: F Source: [facility] 4:07 PM HEALTH SYSTEM REPOSITORY TYPE CODE TESTS RESULT OUT OF REFERENCE UNITS RANGE LAB GLUBL(LOINC 70-99 mg/dL ) High Glucose Meter 217 Result Comment: RN NOTIFIED Performed By: #### GLMET #### [facility] [address] [place], [place] [address] HEMOGRAM Collected: 12/14/2017 Status: F Source: [facility] 3:08 HEALTH SYSTEM REPOSITORY TYPE CODE TESTS RESULT OUT OF REFERENCE UNITS RANGE LAB WBC(LOINC) 3.98-10.04 thou/cmm WBC 5.72 LAB RBC(LOINC) 3.93-5.22 mil/cmm Low RBC 3.23 LAB HGB(LOINC) 11.2-15.7 g/dL Low Hgb 9.3 LAB HCT(LOINC) 34.1-44.9 % Low Hct 29.8 LAB MCV(LOINC) 79.4-94.8 fl MCV 92.3 LAB MCH(LOINC) 25.6-32.2 pg MCH 28.8 LAB MCHC(LOINC) 31.6-34.8 % Low MCHC 31.2 LAB RDW(LOINC) 11.7-14.4 % High RDW 16.0 LAB RDWSD(LOINC 36.4-46.3 fl ) High RDW SD 54.3 LAB PLT(LOINC) 182-369 thou/cmm Low Platelet 140 LAB MPV(LOINC) 9.4-12.3 fl MPV 9.8 Performed By: #### CBC1 #### [facility] [address] [place] [address] N-TERMINAL PRO-BNP Collected: 12/14/2017 Status: F Source: [facility] 3:08 HEALTH SYSTEM REPOSITORY TYPE CODE TESTS RESULT OUT OF RANGE REFERENCE UNITS LAB PBNP(LOINC) pg/ml 76542 N-terminal Pro-BNP Result Comment: Acute CHF Rule-in <50 yrs old >= 450 pg/ml >50 yrs old >= 900 pg/ml Abnormal Pro-BNP All patients >=300 pg/ml Performed By: #### PBNP #### [facility] [address] [place] [id number] BASIC PANEL Collected: 12/14/2017 Status: F Source: [facility] 3:08 PM HEALTH SYSTEM REPOSITORY TYPE CODE TESTS RESULT OUT OF REFERENCE UNITS RANGE LAB NA(LOINC) 136-145 mEq/L Low Sodium Blood 133 LAB K(LOINC) 3.5-5.1 mEq/L Potassium Blood 3.8 LAB CL(LOINC) 98-107 mEq/L Low Chloride Blood 94 LAB CO2(LOINC) 21-32 mEq/L CO2 High Blood 33 LAB GLU(LOINC) 70-99 mg/dL Glucose High Blood 240 LAB BUN(LOINC) 7-18 mg/dL BUN High Blood 31 LAB CREA(LOINC 0.51-0.95 mg/dL ) High Creatinine Blood 2.48 LAB CA(LOINC) 8.5-10.1 mg/dL Low Calcium Blood 7.9 LAB ANGAP(LOIN 8-16 C) Anion Gap 10 Performed By: #### P8 #### [place] [address] MDRD GFR Collected: 12/14/2017 Status: F Source: [facility] 3:08 PM HEALTH SYSTEM REPOSITORY TYPE CODE TESTS RESULT OUT OF RANGE REFERENCE UNITS LAB GFRFN(LOINC >60mL/min/1.73m ) 2 eGFR 19.21 Result Comment: If the patient is , multiply the result by 1.210. Performed By: #### GFR #### [place] [address] PROGRESS Observed: 12/14/2017 Status: COMPLETED Source: [place] 2:15 PM CLINIC OTHER CAMPUS REPOSITORY HNO ID: [id number] Author: Nidia Jones MD Service: Nephrology Author Type: Physician Type: Progress Notes Filed: 12/14/2017 2:18 PM Note Text: CONSULT PROGRESS NOTE NEPHROLOGY SERVICE Following for JORGE on HD No complaints today No nausea No vomiting No SOB No CP MEDICATIONS: Current hospital medications: fluticasone 50 mcg/actuation 1 [place] (FLONASE) 1 [place] EACH NOSTRIL DAILY loratadine 10 mg tab(s) (CLARITIN) 10 mg ORAL DAILY insulin regular human injection (short acting) (NovoLIN R,HumuLIN R) SUBCUTANEOUS w MEALS atorvastatin 40 mg tab(s) (LIPITOR) 40 mg ORAL AT BEDTIME epoetin osvaldo 3,000 Units injection (PROCRIT) 3,000 Units INTRAVENOUS 3 Times weekly with dialysis heparin 1,000 unit/mL 3,800 Units injection 3,800 Units INTRALUMINAL 3 Times weekly with dialysis polyethylene glycol 3350 17 g packet (MIRALAX, GLYCOLAX) 17 g ORAL DAILY senna-docusate 8.6-50 mg 1 tablet (SENNA-S) 1 tablet ORAL AT BEDTIME insulin glargine 39 Units pen (long acting) (LANTUS SOLOSTAR, BASAGLAR) 39 Units SUBCUTANEOUS AT BEDTIME metoprolol tartrate (short acting) 12.5 mg tab(s) (LOPRESSOR) 12.5 mg ORAL q 12 H sodium chloride-aloe vera topical nasal gel (AYR GEL w/ALOE) INTRANASAL PRN albuterol HFA 90 mcg/actuation 2 Puff (PROVENTIL HFA, VENTOLIN HFA) 2 Puff INHALATION q 4 H PRN cloNIDine HCl 0.1 mg tab(s) (CATAPRES) 0.1 mg ORAL TID pantoprazole [address] 40 mg tab(s) (PROTONIX) 40 mg ORAL DAILY enoxaparin 30 mg injection (LOVENOX) 30 mg SUBCUTANEOUS DAILY dextrose 40 % 15 g 15 g ORAL PRN glucagon 1 mg injection (GLUCAGEN) 1 mg INTRAMUSCULAR PRN dextrose 50% in water 25 mL syringe 12.5 g INTRAVENOUS PRN Objective PHYSICAL EXAM: BP 138/62 Pulse 69 Temp 36.7 ?C (98.1 ?F) (Oral) Resp 18 Ht 165.1 cm (5' 5) Wt 99.5 kg (219 lb 5.7 oz) SpO2 91% BMI 36.5 kg/m2 Intake/Output Summary (Last 24 hours) at 12/14/17 1415 Last data filed at 12/13/172056 Gross per 24 hour Intake 700 ml Output 0 ml Net 700 ml Constitutional: No acute distress, Responsive, Normal habitus and Well-nourished Neck: Trachea midline No jugular venous distension Cardiovascular: Regular rate and ryhthm, normal S1 and S2, no murmurs, rubs, or gallops No peripheral edema Respiratory: Normal respiratory effort. Lungs clear bilaterally. Abdomen: Soft, non-tender, non-distended. Normal bowel sounds. No hepatosplenomegaly. Psychiatric: Alert and oriented x self, place, time, and setting Normal mood/affect DATA: Diagnostic tests reviewed for today's visit: Most recent labs Recent Labs 12/13/17 2330 12/13/17 0305 12/12/17 1620 NA -- 136 135* K -- 4.2 4.2 CHLOR -- 99 98 CO2 -- 32 32 BUN -- 59* 51* CREAT -- 3.70* 3.23* GLUC -- 209* 139* ANION -- 9 9 CA -- 8.6 8.6 P 2.1* -- 5.0* MG 1.6 -- 2.3 Recent Labs 12/13/17 0305 12/12/17 1620 WBC 9.10 8.85 HB 8.5* 8.7* HCT 27.7* 28.7* PLT 174* 168* No results for input(s): COLOR, CLARITY, UGLUC, UBILI, UKET, SPGR, UHB, UPH, UPROT, NITRITES, LEUKEST, UWBC, URBC in the last 8784 hours. Assessment/Plan ?? 1- JORGE on CKD. 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 HD MWF. Last HD session yesterday 12/13 Next HD session 12/15. 2nd session of PEX tomorrow. Will continue total of 5 sessions every other day Kidney Bx tomorrow Patient will eventually needs Rituxan and prednisone if Kidney Bx is + for P-ANCA ? 2-Anemia: continue TEZ with HD session ? 3- HTN: BP is well controlled. Continue the same meds ? 4- DM: glycemic control is as per the primary service ? ? Will continue to follow ? ? Nidia Jones MD [phone] ? CHEST 2 VIEWS Observed: 12/14/2017 Status: F Source: [facility] 2:07 PM HEALTH SYSTEM REPOSITORY Performed at [facility] APPROVED BY: Kvng Avitia MD EXAMINATION: CHEST RADIOGRAPH (2 VIEW FRONTAL & LATERAL) Clinical History: Chest pain. MQ: XC2_4 Comparison: 12/13/2017 at 03 15. RESULT: Lines, tubes, and devices: Large bore left internal jugular central catheter with tip in the distal superior vena cava. Overlying cardiac care unit nurse leads. Lungs and pleura: No focal infiltrate or effusion. Some degree of prominent vascularity centrally. Cardiomediastinal silhouette: Cardiomegaly. Other: The patient has had previous resection of the distal right clavicle. IMPRESSION: Cardiomegaly. No pleural effusions. Prominent central vasculature suggesting an element of vascular congestion. LUNG VENTILATION Observed: 12/14/2017 Status: F Source: [facility] 1:59 PM HEALTH SYSTEM REPOSITORY Performed at [facility] APPROVED BY: ALLA SELF MD VENTILATION-PERFUSION LUNG SCAN: HISTORY: Shortness of breath. Chest pain. TECHNIQUE: 0.8 mCi (estimated) Tc-99m DTPA aerosol inhaled for the ventilation imaging. 5.4 mCi Tc-99m MAA IV for pulmonary perfusion imaging. RESULT: MATCHED VENTILATION-PERFUSION DEFECTS: A few matched defects are seen in both lungs. The left lower lobe and the right lower lobe both exhibit stripe signs (pleural-based rim of activity on the perfusion images). MISMATCHED VENTILATION-PERFUSION DEFECTS: None. IMPRESSION: SCINTIGRAPHIC FINDINGS ASSOCIATED WITH A LOW PROBABILITY OF PULMONARY EMBOLISM. NURSING PROG Observed: 12/14/2017 Status: COMPLETED Source: [facility] 12:00 PM CLINIC OTHER CAMPUS REPOSITORY HNO ID: [id number] Author: Nabila (Rn) ELI Cartagena Service: (none) Author Type: Registered Nurse Type: Nursing Progress Note Filed: 12/14/2017 4:15 PM Note Text: Nursing Progress Note Patient Name: Michael Garcia Patient Location: [place] [address]* Pt c/o 7/10 heavy chest pain. Spoke with Dr Veliz by phone who stated she would come see the pt This note was completed by: Nabila Cartagena RN GLUCOSE METER Collected: 12/14/2017 Status: F Source: [facility] 10:37 AM HEALTH SYSTEM REPOSITORY TYPE CODE TESTS RESULT OUT OF REFERENCE UNITS RANGE LAB GLUBL(LOINC 70-99 mg/dL ) High Glucose Meter 253 Result Comment: RN NOTIFIED Performed By: #### GLMET #### [place] [id number] PROGRESS Observed: 12/14/2017 Status: COMPLETED Source: [facility] 9:00 AM CLINIC OTHER CAMPUS REPOSITORY HNO ID: [id number] Author: Jordyn Decker (Adina Veliz Service: General Internal Medicine Author Type: Resident Type: Progress Notes Filed: 12/14/2017 12:54 PM Note Text: Attestation signed by Bianca Lobo at 12/14/2017 7:42 PM Discussed in detail with team, chart reviewed, orders reviewed. Events overnight noted. Pt seen today at 1712, sitting up in chair, had no complaints at that time. Disposition - as below, appreciate both nephrology and pulmonary recommendations for this very special patient. [facility] DAILY PROGRESS NOTE SERVICE DATE: 12/14/2017 SERVICE TIME: 8:26 AM INTERVAL HISTORY: Patient with Afib with RVR overnight, resumed metoprolol (held on admit due to bradycardia). Patient resting comfortable in bed. Denies CP. Endorses SOB, ongoing for months. Denies fever/chills. MEDICATIONS: Current hospital medications: insulin regular human injection (short acting) (NovoLIN R,HumuLIN R) SUBCUTANEOUS w MEALS atorvastatin 40 mg tab(s) (LIPITOR) 40 mg ORAL AT BEDTIME epoetin osvaldo 3,000 Units injection (PROCRIT) 3,000 Units INTRAVENOUS 3 Times weekly with dialysis heparin 1,000 unit/mL 3,800 Units injection 3,800 Units INTRALUMINAL 3 Times weekly with dialysis polyethylene glycol 3350 17 g packet (MIRALAX, GLYCOLAX) 17 g ORAL DAILY senna-docusate 8.6-50 mg 1 tablet (SENNA-S) 1 tablet ORAL AT BEDTIME insulin glargine 39 Units pen (long acting) (LANTUS SOLOSTAR, BASAGLAR) 39 Units SUBCUTANEOUS AT BEDTIME metoprolol tartrate (short acting) 12.5 mg tab(s) (LOPRESSOR) 12.5 mg ORAL q 12 H sodium chloride-aloe vera topical nasal gel (AYR GEL w/ALOE) INTRANASAL PRN albuterol HFA 90 mcg/actuation 2 Puff (PROVENTIL HFA, VENTOLIN HFA) 2 Puff INHALATION q 4 H PRN cloNIDine HCl 0.1 mg tab(s) (CATAPRES) 0.1 mg OR[address] TID pantop[address]ole [address] 40 mg tab(s) (PROTONIX) 40 mg ORAL DAILY enoxaparin 30 mg injection (LOVENOX) 30 mg SUBCUTANEOUS DAILY dextrose 40 % 15 g 15 g ORAL PRN glucagon 1 mg injection (GLUCAGEN) 1 mg INTRAMUSCULAR PRN dextrose 50% in water 25 mL syringe 12.5 g INTRAVENOUS PRN HOME MEDICATIONS: cholecalciferol, vitamin D3, 50,000 unit tab Take 1 tablet by mouth once every month. amiodarone (PACERONE) 200 mg tablet Take 200 mg by mouth once daily. aspirin, enteric coated (ECOTRIN) 325 mg EC tablet Take 325 mg by mouth daily with breakfast. FERREX 150 150 mg iron capsule Take 1 capsule by mouth once daily. pantoprazole DR (PROTONIX) 40 mg tablet Take 1 tablet by mouth once daily. LANTUS SOLOSTAR 100 unit/mL (3 mL) inpn INJECT 39 UNITS SUBCUTANEOUSLY TWICE DAILY NOVOLOG FLEXPEN 100 unit/mL inpn INJECT 4 TIMES DAILY DIRECTED. GLUCOSE LESS THAN 150 = 0 U; 150-199=2 U; 200-249=4 U; 250-299=6 U; 300-349=8 U; >350=10 U gabapentin (NEURONTIN) 300 mg capsule Take 1 capsule by mouth daily at bedtime. hydrALAZINE (APRESOLINE) 100 mg tablet Take 1 tablet by mouth three times daily. cloNIDine HCl (CATAPRES) 0.1 mg tablet Take 1 tablet by mouth three times daily. metoprolol succinate ER (TOPROL XL) 25 mg 24 hr tablet Take 1 tablet by mouth once daily. furosemide (LASIX) 40 mg tablet Take 1.5 tablets by mouth once daily. atorvastatin (LIPITOR) 40 mg tablet Take 1 tablet by mouth daily at bedtime. For cholesterol. gabapentin (NEURONTIN) 100 mg capsule Take one(1) tablet two(2) times daily. COMPOUNDED PRESCRIPTION Portable oxygen Dx: Hypoxemia. R09.02. 3 LPM via NC continuous. ergocalciferol, vitamin D2, (VITAMIN D) 50,000 unit capsule Take 1 capsule by mouth once every month. albuterol HFA (VENTOLIN HFA) 90 mcg/actuation inhaler Inhale 2 Puffs as instructed every 4 hours as needed for Wheezing/Shortness of Breath. PHYSICAL EXAM: 12/14/17 0410 12/14/17 0415 12/14/17 0510 12/14/17 0751 BP: 113/51 119/65 Pulse: (!) 58 64 Resp: 20 20 Temp: 36.6 ?C (97.9 ?F) 36.8 ?C (98.2 ?F) TempSrc: Oral Oral SpO2: (!) 62% 94% 100% 99% Weight: Height: INTAKE/OUTPUT Intake/Output Summary (Last 24 hours) at 12/14/17 0900 Last data filed at 12/13/172056 Gross per 24 hour Intake 700 ml Output 0 ml Net 700 ml General: Awake and alert, in no distress, cooperative, left chest port present Neck: Supple without JVD or Lymphadenopathy Cardiac: RRR, S1S2 with no MGR Lungs: Bilateral scattered wheeze +, mild basal creps+(improved from yesterday) Abdomen: Soft non-tender, non-distended, normal bowel sounds Extremities: 2+ bilateral UE and bilateral pedal edema, no clubbing or skin discoloration. LAB DATA: Recent Labs 12/13/17 0305 12/12/17 1620 TROPI 0.016 -- WBC 9.10 8.85 RBC 2.90* 2.96* HB 8.5* 8.7* HCT 27.7* 28.7* MCV 95.5* 97.0* MCH 29.3 29.4 MCHC 30.7* 30.3* PLT 174* 168* MPV 9.9 10.3 GLUC 209* 139* BUN 59* 51* CREAT 3.70* 3.23* NA 136 135* K 4.2 4.2 CHLOR 99 98 CO2 32 32 TPROT -- 7.3 ALB -- 2.5* CA 8.6 8.6 ALKPHOS -- 72 TBILI -- 0.3 AST -- 12 ALT -- 7* MG -- 2.3 ASSESSMENT AND PLAN: Active Hospital Problems Diagnosis - JORGE (acute kidney injury) (HCC) PLAN FOR THE DAY ? Plan per nephrology is to c/w MWF HD, alternate day plasmapheresis for 5 sessions and to obtain renal biopsy on 12/15/17 ? Scheduled for thoracentesis 12/15/17, pulmonology following ? Started on metoprolol as patient is with Afib ? C/W current insulin regimen, lantus 39 units QHS with SSI and monitor ? JORGE on CKD needing dialysis: - P- ANCA is elevated, suspecting microscopic polyangitis - Last HD and plasmapheresis on 12/13/17, will receive next on 12/14/17 - plan per nephrology is to c/w MWF HD, alternate day plasmapheresis for 5 sessions and to obtain renal biopsy on 12/15/17 Pleural effusion with left LL consolidation - Baseline O2 requirement 3.5L - PCT WNL - Hx of recurrent PNA contributing to respiratory failure - Hx of CREST - Recent echo with RVSP 51mmHg, LVEF 65%, stage 2 diastolic dysfunction, pericardial effusion with no tamponade - Pulmonology following - Scheduled for thoracentesis 12/15/17 ? DM2: - Onbasal insulin + SSI for better blood glucose control - monitor glucose Ac/ HS. ? HTN - Hold Hydralazine 2/2 autoimmune issues - Continue Clonidine - Held lasix - patient anuric - Restarted metoprolol in setting of afib ? Mild Gastritis - Continue with PPI ? A.fib - Bradycardic - on metoprolol - Will hold Amiodarone 2/2 pulm HTN - records from [facility] reviewed, not on anticoagulation 2/2 anemia and hx of intra cerebral bleed ? CREST Constipation - Will add senna ? PAD - Continue ASA, Statin ? INES - CPAP at night ? Nasal pressure ulcer (POA) 2/2 cpap mask ? DVT PPX - Lovenox renal dose SIGNATURE: Jordyn Veliz MD PATIENT NAME: Michael Garcia DATE: December 14, 2017 TIME: 8:26 AM Pager: [phone] CONSULT Observed: 12/14/2017 Status: COMPLETED Source: [facility] 8:35 AM [facility] OTHER CAMPUS REPOSITORY HNO ID: [id number] Author: Umu Rios CNP Service: Pulmonary Disease Author Type: Nurse Practitioner Type: Consults Filed: 12/14/2017 11:02 AM Note Text: Attestation signed by Echo Fernandes at 12/15/2017 9:40 AM [facility] STAFF PHYSICIAN NOTE OF PERSONAL INVOLVEMENT IN CARE I have reviewed the consult note obtained and documented by the nurse practitioner and I personally participated in the martinez components. I have discussed the case and management of the patient's care. The following comments revise or confirm relevant martinez components of the note. Interval history: 72yr old female with recently diagnosed ANCA vasculitis admitted for Plasmapheresis. Patient c/o severe shortness of breath even on lying down. Her nose is congested. Deneis any cough fever or chills. Denies any chest pain Exam: Patient is alert, oriented S1, S2. Regular Breath sounds diminished at bases. No wheezing or rhonchi Good bowel sounds, soft, nontender, nondistended. 3-4+ pedal edema Data: Reviewed as detailed below. IMPRESSION: ASSESSMENT/PLAN: 1. Acute on chronic congestive heart failure, unspecified heart failure type (HCC) - ICD9: 428.0, ICD10: I50.9 2. Class 2 obesity with body mass index (BMI) of 36.0 to 36.9 in adult, unspecified obesity type, unspecified whether serious comorbidity present - ICD9: 278.00, V85.36, ICD10: E66.9, Z68.36 3. INES (obstructive sleep apnea) - ICD9: 327.23, ICD10: G47.33 4. Pleural effusion - ICD9: 511.9, ICD10: J90 5. JORGE (acute kidney injury) (HCC) - ICD9: 584.9, ICD10: N17.9 6. Acute on chronic respiratory failure with hypoxia (HCC) - ICD9: 518.84, 799.02, ICD10: J96.21 7. Acute on chronic diastolic congestive heart failure (HCC) - ICD9: 428.33, 428.0, ICD10: I50.33 8. Pulmonary arterial hypertension - ICD9: 416.8, ICD10: I27.21 Plan: Is on plasmapheresis for ANCA vasculitis Will need diagnostic ultrasound and possible thoracentesis Oxygen supplementation Recommend aggressive fluid removal during dialysis Will need work up for pulmonary hypertension when stable Pulmonary will follow SIGNATURE: Echo Fernandes MD [facility] DATE of SERVICE: december 14, 2017 TIME of SERVICE: 9:34 AM Pulmonary Consult Note SERVICE DATE: 12/14/2017 SERVICE TIME: 8:35 AM ? REASON FOR ADMISSION: Direct admission 11/07 elevated ANCA REASON FOR CONSULT: Pleural effusion, pulmonary hypertension HISTORY OF PRESENT ILLNESS: This is a very pleasant 72 year old female with a past medical history of CREST syndrome, INES (compliant with CPAP) and chronic hypoxic respiratory failure (3.5L at home). Additionally she states that she has been treated for pneumonia twice in the last 6 months, once in July and once just recently at [facility] (admitted 11/27 - 12/08 and treated for suspected LLL pneumonia AND a UTI (Klebsiella) with Levaquin and Zosyn, as well as an JORGE and was subsequently started on PRN dialysis). Of note, during that admission she developed A-fib with RVR and was subsequently started on amiodarone AND metoprolol (no OAC). During that admission an ANCA was drawn which apparently came back elevated and nephrology then wanted her admitted here for further work up and management. Her only current complaints are of PND, sinus congestion, wheezing and shortness of breath (greater with exertion). She denies any difficulty swallowing. She also states that since being here, she feels as though her shortness of breath as improved. She denies any cough, phlegm, fevers, chills, edema or recent weight changes. A full review of systems was obtained and is outlined in detail below. REVIEW OF SYSTEMS: GENERAL: Negative for fevers, malaise, chills, sweats, lethargy, change in appetite or weight HEENT: Negative for headaches, hearing/vision changes, nasal bleeding or rhinorrhea NECK: Negative for lumps, goiter, pain and significant neck swelling NEURO: No history of headaches, syncope, paralysis, seizures or tremors RESPIRATORY: Negative for cough or hemoptysis CARDIOVASCULAR: Negative for chest pain, leg swelling, or palpitations GI: No nausea, vomiting, diarrhea, heartburn or reflux symptoms : No history of dysuria, frequency or incontinence SKIN: Negative for lesions, rash, and itching MUSCULOSKELETAL: Negative for joint pain or swelling, back pain or muscle pain ? ? PAST MEDICAL HISTORY PAST MEDICAL HISTORY Diagnosis Date - Cerebellar hemorrhage, acute ([facility]) 04/04/2016 - CKD (chronic kidney disease) stage 3, GFR 30-59 ml/min 04/04/2016 - CREST variant of scleroderma ([facility]) 04/04/2016 - Diabetic peripheral neuropathy associated with type 2 diabetes mellitus ([facility]) 01/19/2016 - Essential hypertension with goal blood pressure less than 130/85 01/19/2016 - Hyperlipidemia 01/19/2016 - Ischemic ulcer of finger with necrosis of muscle ([facility]) 01/19/2016 Left 3rd finger tip - Lazy eye of left side 1949s - Legally blind 01/19/2016 - Primary osteoarthritis of right knee 01/19/2016 - Retinal hemorrhage of right eye 2007 - S/P craniotomy 04/04/2016 - Type 2 diabetes mellitus with renal manifestations ([facility]) 01/19/2016 Dr. Romeo, nephrology - Umbilical hernia without obstruction and without gangrene 01/19/2016 PAST SURGICAL HISORY PAST SURGICAL HISTORY Procedure Laterality Date - ACHILLES TENDON SURGERY HX Right 1995 - BREAST BIOPSY CORE Left 2013 benign - [facility]27/2017 Colonoscopy w/bx [facility] - EGD W/O OR W/BRUSH/WASH 10/27/2017 EGD w/bx [facility] - LAPAROSCOPIC CHOLEYCYSTECTOMY Cholecystectomy, lap - REMOVAL OF TONSILS,<12 Y/O 1974 Tonsillectomy - REPAIR ROTATOR CUFF,ACUTE Right 1986 - REVISE MEDIAN N/CARPAL TUNNEL SURG Right 1989 - REVISE ULNAR NERVE AT ELBOW Right 1989 PAST FAMILY HISTORY FAMILY HISTORY Problem Relation Age of Onset - Cancer Mother lung - Coronary Artery Disease Father 63 - Breast Cancer Sister - Diabetes Maternal Grandmother SOCIAL HISTORY Social History Substance Use Topics - Smoking status: Never Smoker - Smokeless tobacco: Never Used - Alcohol use 1.5 oz/week 1 Cans of Beer (12oz) per week Comment: ocas *Patient is a life long non-smoker. ? ALLERGIES ALLERGIES No Known Allergies HOME MEDICATIONS: Prescriptions Prior to Admission: cholecalciferol, vitamin D3, 50,000 unit tab Take 1 tablet by mouth once every month. Disp: Rfl: Unknown at Unknown time amiodarone (PACERONE) 200 mg tablet Take 200 mg by mouth once daily. Disp: Rfl: 12/12/2017 at Unknown time aspirin, enteric coated (ECOTRIN) 325 mg EC tablet Take 325 mg by mouth daily with breakfast. Disp: Rfl: 12/12/2017 at Unknown time FERREX 150 150 mg iron capsule Take 1 capsule by mouth once daily. Disp: 90 capsule Rfl: 1 12/12/2017 at Unknown time pantoprazole DR (PROTONIX) 40 mg tablet Take 1 tablet by mouth once daily. Disp: 90 tablet Rfl: 3 12/12/2017 at Unknown time LANTUS SOLOSTAR 100 unit/mL (3 mL) inpn INJECT 39 UNITS SUBCUTANEOUSLY TWICE DAILY Disp: 75 mL Rfl: 3 12/12/2017 at Unknown time NOVOLOG FLEXPEN 100 unit/mL inpn INJECT 4 TIMES DAILY DIRECTED. GLUCOSE LESS THAN 150 = 0 U; 150-199=2 U; 200-249=4 U; 250-299=6 U; 300-349=8 U; >350=10 U Disp: 45 mL Rfl: 1 12/12/2017 at Unknown time gabapentin (NEURONTIN) 300 mg capsule Take 1 capsule by mouth daily at bedtime. Disp: 90 capsule Rfl: 3 12/11/2017 at Unknown time hydrALAZINE (APRESOLINE) 100 mg tablet Take 1 tablet by mouth three times daily. Disp: 270 tablet Rfl: 1 12/12/2017 at Unknown time cloNIDine HCl (CATAPRES) 0.1 mg tablet Take 1 tablet by mouth three times daily. Disp: 270 tablet Rfl: 1 12/12/2017 at Unknown time metoprolol succinate ER (TOPROL XL) 25 mg 24 hr tablet Take 1 tablet by mouth once daily. Disp: 90 tablet Rfl: 3 12/12/2017 at Unknown time furosemide (LASIX) 40 mg tablet Take 1.5 tablets by mouth once daily. Disp: 135 tablet Rfl: 1 12/12/2017 at Unknown time atorvastatin (LIPITOR) 40 mg tablet Take 1 tablet by mouth daily at bedtime. For cholesterol. Disp: 90 tablet Rfl: 3 12/11/2017 at Unknown time gabapentin (NEURONTIN) 100 mg capsule Take one(1) tablet two(2) times daily. Disp: 60 capsule Rfl: 0 COMPOUNDED PRESCRIPTION Portable oxygen Dx: Hypoxemia. R09.02. 3 LPM via NC continuous. Disp: 1 Each Rfl: 0 ergocalciferol, vitamin D2, (VITAMIN D) 50,000 unit capsule Take 1 capsule by mouth once every month. Disp: 3 capsule Rfl: 3 albuterol HFA (VENTOLIN HFA) 90 mcg/actuation inhaler Inhale 2 Puffs as instructed every 4 hours as needed for Wheezing/Shortness of Breath. Disp: 1 Inhaler Rfl: 0 HOSPITAL MEDICATIONS: Current Facility-Administered Medications: insulin regular human injection (short acting) (NovoLIN R,HumuLIN R) SUBCUTANEOUS w MEALS Roulan (Res) [place] 1 Units at 12/14/17 08 atorvastatin 40 mg tab(s) (LIPITOR) 40 mg ORAL AT BEDTIME [place]oulan (Res) [place] 40 mg at 12/13/172056 epoetin osvaldo 3,000 Units injection (PROCRIT) 3,000 Units INTRAVENOUS 3 Times weekly with dialysis Nidia Jones MD 3,000 Units at 12/13/17 1800 heparin 1,000 unit/mL 3,800 Units injection 3,800 Units INTRALUMINAL 3 Times weekly with dialysis Nidia Jones MD 3,800 Units at 12/13/17 184 polyethylene glycol 3350 17 g packet (MIRALAX, GLYCOLAX) 17 g ORAL DAILY Bianca Gusman Lashell 17 g at 12/14/17 0824 senna-docusate 8.6-50 mg 1 tablet (SENNA-S) 1 tablet ORAL AT BEDTIME Bianca Gusman Lashell 1 tablet at 12/13/172056 insulin glargine 39 Units pen (long acting) (LANTUS SOLOSTAR, BASAGLAR) 39 Units SUBCUTANEOUS AT BEDTIME Roulan (Res) [place] 39 Units at 12/13/172056 metoprolol tartrate (short acting) 12.5 mg tab(s) (LOPRESSOR) 12.5 mg ORAL q 12 H Luisa (Res) [place]unyan 12.5 mg at 12/14/17 0822 sodium chloride-aloe vera topical nasal gel (AYR GEL w/ALOE) INTRANASAL PRN Luisa (Res) [place]ark[place] 1 application at 12/13/17 2315 albuterol HFA 90 mcg/actuation 2 Puff (PROVENTIL HFA, VENTOLIN HFA) 2 Puff INHALATION q 4 H PRN Bianca Lobo cloNIDine HCl 0.1 mg tab(s) (CATAPRES) 0.1 mg ORAL TID Noman (Res) Vura 0.1 mg at 12/13/[address] 40 mg tab(s) (PROTONIX) 40 mg ORAL DAILY Noman (Res) [place] 40 mg at 12/14/17 0823 enoxaparin 30 mg injection (LOVENOX) 30 mg SUBCUTANEOUS DAILY Noman (Res) [place] 30 mg at 12/13/172056 dextrose 40 % 15 g 15 g ORAL PRN Noman (Res) [place] Or glucagon 1 mg injection (GLUCAGEN) 1 mg INTRAMUSCULAR PRN Noman (Res) [place] Or dextrose 50% in water 25 mL syringe 12.5 g INTRAVENOUS PRN Noman (Res) Vura ? LABS 12/13 Procalcitonin 0.29 BMP: Glucose (mg/dL) Date Value 12/13/2017 209 Potassium (mEq/L) Date Value 12/13/2017 4.2 Sodium (mEq/L) Date Value 12/13/2017 136 Chloride (mEq/L) Date Value 12/13/2017 99 CO2 (mEq/L) Date Value 12/13/2017 32 Creatinine (mg/dL) Date Value 12/13/2017 3.70 BUN (mg/dL) Date Value 12/13/2017 59 Anion Gap (no units) Date Value 12/13/2017 9 Calcium (mg/dL) Date Value 12/13/2017 8.6 CBC: Hemoglobin (g/dL) Date Value 08/09/2017 9.3 06/08/2016 11.9 HGB (g/dL) Date Value 12/13/2017 8.5 12/12/2017 8.7 04/02/2016 9.4 Hematocrit (%) Date Value 12/13/2017 27.7 12/12/2017 28.7 08/09/2017 32.4 WBC Date Value 12/13/2017 9.10 thou/cmm 12/12/2017 8.85 thou/cmm 08/09/2017 6.50 k/uL No recent new micro found in [facility] RADIOLOGY FILMS: CXR 12/13/17: 1. Lines, Tubes, and Devices: ?The tip of the left internal jugular and dual-lumen ?catheter is at the cephalad portion of the right atrium 2. Lungs and Pleura: ?Limited inspiratory effort. ?Groundglass density in both lungs that has developed since the previous examination. ?Consolidation in the retrocardiac aspect of the left lower lobe. ?Small right pleural effusion. ?Probable small left pleural effusion. 3. Cardiomediastinal silhouette: ?The cardiac silhouette is not well delineated secondary to the pulmonary process in the left chest ? Most recent Echocardiogram 11/27/17: LVEF: 65% Stage II diastolic dysfunction RVSP is estimated to be 51% No PSGs / PFTs found in [facility] ? VITALS: BP 119/65 Pulse 64 Temp 36.8 ?C (98.2 ?F) (Oral) Resp 20 Ht 165.1 cm (5' 5) Wt 99.5 kg (219 lb 5.7 oz) SpO2 99% BMI 36.5 kg/m2 PHYSICAL EXAM: GENERAL: AAOx3, pleasant, obese, resting in bed in NAD. at bedside. NEURO: CN II-XII intact, speech clear HEENT: NCAT, EOMI, no lymphadenopathy appreciated RESPIRATORY: CTAB A AND P with diminished BS at bases. Even/unlabored at rest. No wheezing, accessory muscle use, pursed lip breathing or conversational dysnea. Patient is on 4 L NC. CARDIOVASCULAR: Normal S1S2, RRR, no murmur, rub, or gallop. No edema. GI: Soft, nondistended, nontender, bowel sounds present x4 EXTREMITIES: no clubbing or cyanosis. MAEx4 SKIN: warm, dry, intact, no rash ? ASSESSMENT AND PLAN: 1. Acute on chronic hypoxic / hypercapnic respiratory failure - multifactorial - Currently on 4L. Wean to baseline home O2 of 3.5 L as able, keep SaO2 > 92%. See plan below. Continue with PRN albuterol. Add IS Q1H. Check ambulatory pulse oximetry prior to discharge. 2. Bilateral infiltrates vs pulmonary edema (L > R) with suspected moderate to large (and possibly loculated) left pleural effusion - etiology unclear, though doubt infectious given lack of clinical signs or symptoms of pneumonia. Continue to monitor off antibiotics for now. Check BNP. Will need diagnostic left thoracentesis with follow up CXR afterwards. May need to consider CT chest if bilateral ASD persists. 3. URI - suspect viral - will add Flonase and Claritin. C/w PRN albuterol as above. 4. Moderate pulmonary hypertension with RVSP of 51 - likely WHO group II / III 2/2 #5 AND #6 - no indication for PAH directed therapies at this time. OP follow up with Dr. Valencia in [place]. 5. Suspected Acute on chronic diastolic heart failure with EF 65% - Continue with BB. Keep outputs > inputs, daily weights, CHF diet. May need to be more aggressive with volume management/removal via HD. 6. INES - CPAP complaint QHS / all sleep 7. Obesity with BMI of 36.50 - weight loss strongly encouraged. 8. JORGE on CKD - suspect 2/2 #9 / acute vasculitis - Continue with plasmapheresis / HD per nephrology. Awaiting renal biopsy 12/15. May need to begin treatment with Rituxan AND steroids if biopsy is positive. 9. Questionable history of CREST syndrome 10. Recent LLL Pneumonia - treated at [place] with Zosyn AND Levaquin 11. MMP - per primary 12. Further evaluation with attending to follow. SIGNATURE: Umu Rios CNP PATIENT NAME: Michael Garcia DATE: December 14, 2017 TIME: 8:35 AM PAGER/CONTACT #: [phone] ? GLUCOSE METER Collected: 12/14/2017 Status: F Source: [facility] 6:29 AM HEALTH SYSTEM REPOSITORY TYPE CODE TESTS RESULT OUT OF REFERENCE UNITS RANGE LAB GLUBL(LOINC 70-99 mg/dL ) High Glucose Meter 132 Performed By: #### GLMET #### [place] [address] NURSING PROG Observed: 12/14/2017 Status: COMPLETED Source: [facility] 4:24 AM CLINIC OTHER CAMPUS REPOSITORY O ID: [id number] Author: Bhavya (Rn) ELI Forrest Service: Nursing Author Type: Registered Nurse Type: Nursing Progress Note Filed: 12/14/2017 4:27 AM Note Text: Nursing Progress Note Patient Name: Michael Garcia Patient Location: [place] [address] [address]* Daily Note: Patient was found sleeping without BiPAP mask on, was found to be 62% on room air. BiPAP was placed back on and pulled up in bed. Oxygen back to 94% on BiPAP, instructed to not remove mask when sleeping. Patient agreeable, will continue to monitor. This note was completed by: Bhavya Forrest RN IONIZED CALCIUM Collected: 12/13/2017 Status: F Source: [facility] 11:30 PM HEALTH SYSTEM REPOSITORY TYPE CODE TESTS RESULT OUT OF REFERENCE UNITS RANGE LAB CAION(LOINC 4.43-4.93 mg/dL ) Low Ionized 3.82 Calcium LAB PHCAI(LOINC 7.320-7.420 ) pH 7.381 LAB CAPH(LOINC) 4.36-4.73 mg/dL Low Ionized 3.78 Ca,PH7.4 Performed By: #### IONCA #### [facility] [address] [place] [address] MAGNESIUM BLOOD Collected: 12/13/2017 Status: F Source: [facility] 11:30 PM HEALTH SYSTEM REPOSITORY TYPE CODE TESTS RESULT OUT OF REFERENCE UNITS RANGE LAB MAG(LOINC) 1.6-2.6 mg/dL Magnesium Blood 1.6 Performed By: #### MAG #### [place] [address] PHOSPHORUS BLOOD Collected: 12/13/2017 Status: F Source: [facility] 11:30 PM HEALTH SYSTEM REPOSITORY TYPE CODE TESTS RESULT OUT OF REFERENCE UNITS RANGE LAB PHOS(LOINC 2.5-4.9 mg/dL ) Low Phosphorus Blood 2.1 Performed By: #### PHOS #### [place] [address] LD,TOTAL BLOOD Collected: 12/13/2017 Status: F Source: [facility] 11:30 PM HEALTH SYSTEM REPOSITORY TYPE CODE TESTS RESULT OUT OF RANGE REFERENCE UNITS LAB LDH(LOINC) 84-246 U/L LD,Total 127 Blood Performed By: #### LDH #### [place] [address] TOTAL PROTEIN Collected: 12/13/2017 Status: F Source: [facility] 11:30 PM HEALTH SYSTEM REPOSITORY TYPE CODE TESTS RESULT OUT OF REFERENCE UNITS RANGE LAB TP(LOINC) 6.4-8.2 g/dL Low Total Protein 6.3 Performed By: #### TP #### [place] [address] PROGRESS Observed: 12/13/2017 Status: COMPLETED Source: [facility] 10:53 PM CLINIC OTHER CAMPUS REPOSITORY O ID: [id number] Author: Luisa Lim Service: Hospital Medicine Author Type: Resident Type: Progress Notes Filed: 12/13/2017 11:02 PM Note Text: Night team progress note Was paged By nurse regarding tele showing A-fib. STAT EKG ordered. At bedside patient denies any symptoms, palpitations, chest pain, SOB, dizziness. Ready to sleep waiting for BiPAP to be placed, needs some nasal spray to sooth the burning in the nose. Patient has been off metoprolol and amiodarone since admission. States at [facility] has been having some irregular heart rates, not sure if A-fib. Per previous records from [facility] may have Hx of PAF in the past as well. On Tele HR in 120-130. Occasional PVC's EKG: Irregular, cons with A-fib On exam: NAD, in the bed, CV: Irregular tachycardia Resp: not complete resp effort, CTA Pulse: intact b/l Neuro: AOx3 Assessment/Plan: -Per records, metoprolol was on hold, will order STAT IV metoprolol 5mg now Restart po Metoprolol 12,5 mg bid with holding parameters -check Mg, iCa, Phos now due to 5 beats of Vtach while got up go to bathroom. Patinet is asymptomatic. Start on BiPAP LOYDA with Naps and night sleep. Luisa Lim MD PGY-2, IM NURSING PROG Observed: 12/13/2017 Status: COMPLETED Source: [facility] 9:47 PM CLINIC OTHER CAMPUS REPOSITORY HNO ID: [id number] Author: Bhavya (Rn) ELI Forrest Service: Nursing Author Type: Registered Nurse Type: Nursing Progress Note Filed: 12/13/2017 9:48 PM Note Text: Nursing Progress Note Patient Name: Michael Garcia Patient Location: [place] [address] [address]* Daily Note: Spoke with [facility] regarding patient now AFib on tele, HR ranging between 100's to 140's. States they will be up to see the patient. This note was completed by: Bhavya Forrest RN GLUCOSE METER Collected: 12/13/2017 Status: F Source: [facility] 8:06 PM HEALTH SYSTEM REPOSITORY TYPE CODE TESTS RESULT OUT OF REFERENCE UNITS RANGE LAB GLUBL(LOINC 70-99 mg/dL ) High Glucose Meter 149 Result Comment: RN NOTIFIED Performed By: #### GLMET #### [place] [address] GLUCOSE METER Collected: 12/13/2017 Status: F Source: [facility] 7:03 PM HEALTH SYSTEM REPOSITORY TYPE CODE TESTS RESULT OUT OF REFERENCE UNITS RANGE LAB GLUBL(LOINC 70-99 mg/dL ) High Glucose Meter 102 Result Comment: RN NOTIFIED Performed By: #### GLMET #### [facility] [address] [place], [place] [address] NURSING PROG Observed: 12/13/2017 Status: COMPLETED Source: [facility] 7:00 PM CLINIC OTHER CAMPUS REPOSITORY HNO ID: [id number] Author: Manju Watkins (Rn) ELI Quiroga Service: Dialysis Author Type: Registered Nurse Type: Nursing Progress Note Filed: 12/13/2017 8:08 PM Note Text: HEMODIALYSIS TX COMPLETED PAULA WELL STABLE -2000 ML OFF SEE FLOW SHEET FOR DETAILS CONSULT Observed: 12/13/2017 Status: COMPLETED Source: [facility] 3:42 PM CLINIC OTHER CAMPUS REPOSITORY HNO ID: [id number] Author: Nidia Jones MD Service: Nephrology Author Type: Physician Type: Consults Filed: 12/13/2017 3:55 PM Note Text: CONSULT: NEPHROLOGY SERVICE SERVICE DATE: 12/13/2017 SERVICE TIME: 3:43 PM REASON FOR CONSULT: I am asked to see this patient in consultation for my opinion regarding JORGE. My recommendations will be communicated by way of shared medical record. REQUESTING PHYSICIAN:Dr.Naga Cobos PRIMARY CARE PHYSICIAN: Mat Duffy MD HPI: Ms. Garcia is a 72 year old female with PMH of CKD, DM, HTN, CREST syndrome, chronic RF on 02 at home, and HPLD. Patient was admitted recently to [facility] with pneumonia and UTI. Her hospital stay was complicated with JORGE on CKD . Initially JORGE was contributed to [facility] from sepsis with Afib and RVR. Patient was started on HD. So far had 5 sessions of HD. Last HD session was yesterday but was aborted early because she was told to come to [facility] to [facility] . 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 Patient has no complaints. Patient has 1st session pf plamsapharesis today. Patient seen during HD session today ROS: 12 systems review is negative except anuria. fatigue PAST MEDICAL HISTORY Diagnosis Date - Cerebellar hemorrhage, acute (HCC) 04/04/2016 - CKD (chronic kidney disease) stage 3, GFR 30-59 ml/min 04/04/2016 - CREST variant of scleroderma (HCC) 04/04/2016 - Diabetic peripheral neuropathy associated with type 2 diabetes mellitus (HCC) 01/19/2016 - Essential hypertension with goal blood pressure less than 130/85 01/19/2016 - Hyperlipidemia 01/19/2016 - Ischemic ulcer of finger with necrosis of muscle (HCC) 01/19/2016 Left 3rd finger tip - Lazy eye of left side 1950s - Legally blind 01/19/2016 - Primary osteoarthritis of right knee 01/19/2016 - Retinal hemorrhage of right eye 2007 - S/P craniotomy 04/04/2016 - Type 2 diabetes mellitus with renal manifestations ([facility]) 01/19/2016 Dr. Romeo, nephrology - Umbilical hernia without obstruction and without gangrene 01/19/2016 PAST SURGICAL HISTORY Procedure Laterality Date - ACHILLES TENDON SURGERY HX Right 1995 - BREAST BIOPSY CORE Left 2013 benign - [facility]/27/2017 Colonoscopy w/bx [facility] - EGD W/O OR W/BRUSH/WASH 10/27/2017 EGD w/bx [facility] - LAPAROSCOPIC CHOLEYCYSTECTOMY Cholecystectomy, lap - REMOVAL OF TONSILS,<12 Y/O 1974 Tonsillectomy - REPAIR ROTATOR CUFF,ACUTE Right 1986 - REVISE MEDIAN N/CARPAL TUNNEL SURG Right 1989 - REVISE ULNAR NERVE AT ELBOW Right 1989 FAMILY HISTORY Problem Relation Age of Onset - Cancer Mother lung - Coronary Artery Disease Father 63 - Breast Cancer Sister - Diabetes Maternal Grandmother Social History Substance Use Topics - Smoking status: Never Smoker - Smokeless tobacco: Never Used - Alcohol use 1.5 oz/week 1 Cans of Beer (12oz) per week Comment: ocas MEDICATIONS: Prior to Admission Medications Prescriptions Prior to Admission: cholecalciferol, vitamin D3, 50,000 unit tab Take 1 tablet by mouth once every month. Disp: Rfl: Unknown at Unknown time amiodarone (PACERONE) 200 mg tablet Take 200 mg by mouth once daily. Disp: Rfl: 12/12/2017 at Unknown time aspirin, enteric coated (ECOTRIN) 325 mg EC tablet Take 325 mg by mouth daily with breakfast. Disp: Rfl: 12/12/2017 at Unknown time FERREX 150 150 mg iron capsule Take 1 capsule by mouth once daily. Disp: 90 capsule Rfl: 1 12/12/2017 [address] Unknown time pantoprazole DR (PROTONIX) 40 mg tablet Take 1 tablet by mouth once daily. Disp: 90 tablet Rfl: 3 12/12/2017 at Unknown time LANTUS SOLOSTAR 100 unit/mL (3 mL) inpn INJECT 39 UNITS SUBCUTANEOUSLY TWICE DAILY Disp: 75 mL Rfl: 3 12/12/2017 at Unknown time NOVOLOG FLEXPEN 100 unit/mL inpn INJECT 4 TIMES DAILY DIRECTED. GLUCOSE LESS THAN 150 = 0 U; 150-199=2 U; 200-249=4 U; 250-299=6 U; 300-349=8 U; >350=10 U Disp: 45 mL Rfl: 1 12/12/2017 at Unknown time gabapentin (NEURONTIN) 300 mg capsule Take 1 capsule by mouth daily at bedtime. Disp: 90 capsule Rfl: 3 12/11/2017 at Unknown time hydrALAZINE (APRESOLINE) 100 mg tablet Take 1 tablet by mouth three times daily. Disp: 270 tablet Rfl: 1 12/12/2017 at Unknown time cloNIDine HCl (CATAPRES) 0.1 mg tablet Take 1 tablet by mouth three times daily. Disp: 270 tablet Rfl: 1 12/12/2017 at Unknown time metoprolol succinate ER (TOPROL XL) 25 mg 24 hr tablet Take 1 tablet by mouth once daily. Disp: 90 tablet Rfl: 3 12/12/2017 at Unknown time furosemide (LASIX) 40 mg tablet Take 1.5 tablets by mouth once daily. Disp: 135 tablet Rfl: 1 12/12/2017 at Unknown time atorvastatin (LIPITOR) 40 mg tablet Take 1 tablet by mouth daily at bedtime. For cholesterol. Disp: 90 tablet Rfl: 3 12/11/2017 at Unknown time gabapentin (NEURONTIN) 100 mg capsule Take one(1) tablet two(2) times daily. Disp: 60 capsule Rfl: 0 COMPOUNDED PRESCRIPTION Portable oxygen Dx: Hypoxemia. R09.02. 3 LPM via NC continuous. Disp: 1 Each Rfl: 0 ergocalciferol, vitamin D2, (VITAMIN D) 50,000 unit capsule Take 1 capsule by mouth once every month. Disp: 3 capsule Rfl: 3 albuterol HFA (VENTOLIN HFA) 90 mcg/actuation inhaler Inhale 2 Puffs as instructed every 4 hours as needed for Wheezing/Shortness of Breath. Disp: 1 Inhaler Rfl: 0 Current hospital medications: insulin glargine 20 Units pen (long acting) (LANTUS SOLOSTAR, BASAGLAR) 20 Units SUBCUTANEOUS AT BEDTIME insulin regular human injection (short acting) (NovoLIN R,HumuLIN R) SUBCUTANEOUS w MEALS atorvastatin 40 mg tab(s) (LIPITOR) 40 mg ORAL AT BEDTIME epoetin osvaldo 3,000 Units injection (PROCRIT) 3,000 Units INTRAVENOUS 3 Times weekly with dialysis heparin 1,000 unit/mL 3,800 Units injection 3,800 Units INTRALUMINAL 3 Times weekly with dialysis senna-docusate 8.6-50 mg 1 tablet (SENNA-S) 1 tablet ORAL BID PRN albuterol HFA 90 mcg/actuation 2 Puff (PROVENTIL HFA, VENTOLIN HFA) 2 Puff INHALATION q 4 H PRN cloNIDine HCl 0.1 mg tab(s) (CATAPRES) 0.1 mg ORAL TID pantoprazole DR 40 mg tab(s) (PROTONIX) 40 mg ORAL DAILY enoxaparin 30 mg injection (LOVENOX) 30 mg SUBCUTANEOUS DAILY dextrose 40 % 15 g 15 g ORAL PRN glucagon 1 mg injection (GLUCAGEN) 1 mg INTRAMUSCULAR PRN dextrose 50% in water 25 mL syringe 12.5 g INTRAVENOUS PRN ALLERGIES No Known Allergies Objective PHYSICAL EXAM: BP (!) 128/49 Pulse 65 Temp 36.7 ?C (98.1 ?F) (Oral) Resp 18 Ht 165.1 cm (5' 5) Wt 99.5 kg (219 lb 5.7 oz) SpO2 93% BMI 36.5 kg/m2 Intake/Output Summary (Last 24 hours) at 12/13/17 1543 Last data filed at 12/13/17 0800 Gross per 24 hour Intake 240 ml Output 1 ml Net 239 ml Constitutional: No acute distress, Responsive, Normal habitus and Well-nourished Eyes: Conjunctiva clear and PERRL Ear, Nose, and Throat: Hearing normal, Lips normal and Dentition normal Neck: Trachea midline No jugular venous distension Cardiovascular: Regular rate and ryhthm, normal S1 and S2, no murmurs, rubs, or gallops No peripheral edema Respiratory: Normal respiratory effort. Lungs clear bilaterally. Abdomen: Soft, non-tender, non-distended. Normal bowel sounds. No hepatosplenomegaly. Musculoskeletal: No clubbing or cyanosis of digits. and Normocephalic. Neurologic: CN II-XII intact and Normal sensation Psychiatric: Alert and oriented x self, place, time, and setting Normal mood/affect DATA: Diagnostic tests reviewed for today's visit: Most recent labs Recent Labs 12/13/17 0305 12/12/17 1620 NA 136 135* K 4.2 4.2 CHLOR 99 98 CO2 32 32 BUN 59* 51* CREAT 3.70* 3.23* GLUC 209* 139* ANION 9 9 CA 8.6 8.6 P -- 5.0* MG -- 2.3 Recent Labs 12/13/17 0305 12/12/17 1620 WBC 9.10 8.85 HB 8.5* 8.7* HCT 27.7* 28.7* PLT 174* 168* Assessment/Plan 1- JORGE on CKD. 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 HD MWF Seen during HD session today: BQ 350, DQ 600 UF 2L. Next HD session 12/15 Patient received the 1st session pf plasmapheresis . Will continue total of 5 sessions every other day Kidney biopsy on Friday Patient will eventually needs Rituxan and prednisone if Kidney Bx is + for P-ANCA 2-Anemia: continue TEZ with HD session 3- HTN: BP is well controlled. Continue the same meds 4- DM: glycemic control is as per the primary service Will continue to follow Nidai Jones MD [phone] GLUCOSE METER Collected: 12/13/2017 Status: F Source: [facility] 10:42 AM HEALTH SYSTEM REPOSITORY TYPE CODE TESTS RESULT OUT OF REFERENCE UNITS RANGE LAB GLUBL(LOINC 70-99 mg/dL ) High Glucose Meter 253 Result Comment: RN NOTIFIED Performed By: #### GLMET #### [facility] [address] [place] [address] PROCALCITONIN Collected: 12/13/2017 Status: F Source: [facility] 9:05 AM HEALTH SYSTEM REPOSITORY TYPE CODE TESTS RESULT OUT OF REFERENCE UNITS RANGE LAB PRCAS(LOIN ng/mL C) Procalcitonin 0.29 Result Comment: Levels <0.50 ng/mL represent a low risk of severe sepsis and/or septic shock, while levels >2.00 ng/mL represent an elevated risk of severe sepsis and/or septic shock. Levels <0.50 ng/mL do not exclude infection, as infections or systemic infections in early stages (<6hrs) can be associated with low concentrations. Levels between 0.50-2.00 ng/mL should be interpreted in the clinical context of the patient, as a variety of conditions such as cardoso, trauma, surgery and severe cardiogenic shock can cause procalcitonin elevations. Performed By: #### PRCAS #### [place] [id number] PROGRESS Observed: 12/13/2017 Status: COMPLETED Source: [facility] 8:25 AM CLINIC OTHER CAMPUS REPOSITORY O ID: [id number] Author: Jordyn Decker (Arun) Jose Alfredo Service: General Internal Medicine Author Type: Resident Type: Progress Notes Filed: 12/13/2017 4:50 PM Note Text: Attestation signed by Bianca Lobo at 12/13/2017 6:31 PM Discussed with team, chart again reviewed (but did not yet get to review paper chart recently rec'd from OSH), orders reviewed and revised as needed. Pt seen today in dialysis at 1710, she said she felt better, asked for 'something for my bowels, haven't had a BM in 3 days', no other complaints, alert and oriented, no confusion. Disposition - as below, appreciate nephrology and pulmonology recommendations and care for this very special pt, continue supportive care, work up in progress as outlined below. [facility] DAILY PROGRESS NOTE SERVICE DATE: 12/13/2017 SERVICE TIME: 8:26 AM INTERVAL HISTORY: Patient with no acute distress, resting comfortable in bed, on 34 L NC O2. She denies SOB/cough/sputum/fever/chills. Does c/o constipation MEDICATIONS: Current hospital medications: insulin glargine 20 Units pen (long acting) (LANTUS SOLOSTAR, BASAGLAR) 20 Units SUBCUTANEOUS AT BEDTIME insulin regular human injection (short acting) (NovoLIN R,HumuLIN R) SUBCUTANEOUS w MEALS albuterol HFA 90 mcg/actuation 2 Puff (PROVENTIL HFA, VENTOLIN HFA) 2 Puff INHALATION q 4 H PRN cloNIDine HCl 0.1 mg tab(s) (CATAPRES) 0.1 mg ORAL TID pantoprazole DR 40 mg tab(s) (PROTONIX) 40 mg ORAL DAILY enoxaparin 30 mg injection (LOVENOX) 30 mg SUBCUTANEOUS DAILY dextrose 40 % 15 g 15 g ORAL PRN glucagon 1 mg injection (GLUCAGEN) 1 mg INTRAMUSCULAR PRN dextrose 50% in water 25 mL syringe 12.5 g INTRAVENOUS PRN HOME MEDICATIONS: cholecalciferol, vitamin D3, 50,000 unit tab Take 1 tablet by mouth once every month. amiodarone (PACERONE) 200 mg tablet Take 200 mg by mouth once daily. aspirin, enteric coated (ECOTRIN) 325 mg EC tablet Take 325 mg by mouth daily with breakfast. FERREX 150 150 mg iron capsule Take 1 capsule by mouth once daily. pantoprazole DR (PROTONIX) 40 mg tablet Take 1 tablet by mouth once daily. LANTUS SOLOSTAR 100 unit/mL (3 mL) inpn INJECT 39 UNITS SUBCUTANEOUSLY TWICE DAILY NOVOLOG FLEXPEN 100 unit/mL inpn INJECT 4 TIMES DAILY DIRECTED. GLUCOSE LESS THAN 150 = 0 U; 150-199=2 U; 200-249=4 U; 250-299=6 U; 300-349=8 U; >350=10 U gabapentin (NEURONTIN) 300 mg capsule Take 1 capsule by mouth daily at bedtime. hydrALAZINE (APRESOLINE) 100 mg tablet Take 1 tablet by mouth three times daily. cloNIDine HCl (CATAPRES) 0.1 mg tablet Take 1 tablet by mouth three times daily. metoprolol succinate ER (TOPROL XL) 25 mg 24 hr tablet Take 1 tablet by mouth once daily. furosemide (LASIX) 40 mg tablet Take 1.5 tablets by mouth once daily. atorvastatin (LIPITOR) 40 mg tablet Take 1 tablet by mouth daily at bedtime. For cholesterol. gabapentin (NEURONTIN) 100 mg capsule Take one(1) tablet two(2) times daily. COMPOUNDED PRESCRIPTION Portable oxygen Dx: Hypoxemia. R09.02. 3 LPM via NC continuous. ergocalciferol, vitamin D2, (VITAMIN D) 50,000 unit capsule Take 1 capsule by mouth once every month. albuterol HFA (VENTOLIN HFA) 90 mcg/actuation inhaler Inhale 2 Puffs as instructed every 4 hours as needed for Wheezing/Shortness of Breath. PHYSICAL EXAM: 12/12/17 1527 12/13/17 0236 12/13/17 0346 12/13/17 0700 BP: (!) 122/46 (!) 156/47 (!) 116/43 Pulse: (!) 55 70 60 (!) 57 Resp: 20 Temp: 36.3 ?C (97.3 ?F) 36.7 ?C (98.1 ?F) 36.7 ?C (98.1 ?F) TempSrc: Oral Oral Oral SpO2: 94% 90% 92% 100% Weight: 99.5 kg (219 lb 5.7 oz) Height: 165.1 cm (5' 5) INTAKE/OUTPUT Intake/Output Summary (Last 24 hours) at 12/13/17 0826 Last data filed at 12/13/17 0800 Gross per 24 hour Intake 240 ml Output 1 ml Net 239 ml General: Awake and alert, in no distress, cooperative, left chest port present Neck: Supple without JVD or Lymphadenopathy Cardiac: RRR, S1S2 with no MGR Lungs: Bilateral scattered wheeze +, basal creps+ Abdomen: Soft non-tender, non-distended, normal bowel sounds Extremities: 2+ bilateral UE and bilateral pedal edema, no clubbing or skin discoloration. LAB DATA: Recent Labs 12/13/17 0305 12/12/17 1620 TROPI 0.016 -- WBC 9.10 8.85 RBC 2.90* 2.96* HB 8.5* 8.7* HCT 27.7* 28.7* MCV 95.5* 97.0* MCH 29.3 29.4 MCHC 30.7* 30.3* PLT 174* 168* MPV 9.9 10.3 GLUC 209* 139* BUN 59* 51* CREAT 3.70* 3.23* NA 136 135* K 4.2 4.2 CHLOR 99 98 CO2 32 32 TPROT -- 7.3 ALB -- 2.5* CA 8.6 8.6 ALKPHOS -- 72 TBILI -- 0.3 AST -- 12 ALT -- 7* MG -- 2.3 ASSESSMENT AND PLAN: Active Hospital Problems Diagnosis - JORGE (acute kidney injury) (HCC) PLAN FOR THE DAY ? JORGE on CKD needing dialysis: - P- ANCA is elevated, suspecting microscopic polyangitis - Dialysis is scheduled today 12/13/17 - Kidney Bx scheduled 12/15/17 - Plan for plasmopheresis 12/16/17 - Consulted nephrology, appreciate recs Pleural effusion with left LL consolidation - Baseline O2 requirement 3.5L - PCT WNL - Hx of recurrent PNA contributing to respiratory failure - Hx of CREST - Recent echo with RVSP 51mmHg, LVEF 65%, stage 2 diastolic dysfunction, pericardial effusion with no tamponade - Will consult pulmonology for further recs ? DM2: - Will increase her basal insulin for better blood glucose control - monitor glucose Ac/ HS. ? HTN - Hold BB 2/2 bradycardia - Hold Hydralazine 2/2 autoimmune issues - Continue Clonidine - Held lasix - patient anuric ? Mild Gastritis - Continue with PPI ? A.fib - Bradycardic - Hold BB - Will hold Amiodarone 2/2 pulm HTN - records from [place] reviewed, not on anticoagulation 2/2 anemia and hx of intra cerebral bleed ? CREST Constipation - Will add senna ? PAD - Continue ASA, Statin ? INES - CPAP at night ? Nasal pressure ulcer (POA) 2/2 cpap mask ? DVT PPX - Lovenox renal dose SIGNATURE: Jordyn Veliz MD PATIENT NAME: Michael Garcia DATE: December 13, 2017 TIME: 8:26 AM Pager: [phone] GLUCOSE METER Collected: 12/13/2017 Status: F Source: [facility] 6:25 AM HEALTH SYSTEM REPOSITORY TYPE CODE TESTS RESULT OUT OF REFERENCE UNITS RANGE LAB GLUBL(LOINC 70-99 mg/dL ) High Glucose Meter 208 Performed By: #### GLMET #### [facility] [address] [place] [address] CHEST 1 VIEW Observed: 12/13/2017 Status: F Source: [facility] 3:38 AM HEALTH SYSTEM REPOSITORY Performed at [facility] APPROVED BY: MARION WYATT MD CHEST RADIOGRAPH (PORTABLE SINGLE VIEW AP) Exam Date/Time: 12/13/2017 3:38 AM Indications: Chest pain M: XCP_1 Comparison: 03/20/2016, 0922 hours RESULTS: See Impression. IMPRESSION: PULMONARY VENOUS CONGESTION WITH INTERSTITIAL EDEMA. SMALL BILATERAL PLEURAL EFFUSIONS. LEFT LOWER LOBE CONSOLIDATION 1. Lines, Tubes, and Devices: The tip of the left internal jugular and dual-lumen catheter is at the cephalad portion of the right atrium 2. Lungs and Pleura: Limited inspiratory effort. Groundglass density in both lungs that has developed since the previous examination. Consolidation in the retrocardiac aspect of the left lower lobe. Small right pleural effusion. Probable small left pleural effusion. 3. Cardiomediastinal silhouette: The cardiac silhouette is not well delineated secondary to the pulmonary process in the left chest PROGRESS Observed: 12/13/2017 Status: COMPLETED Source: [place] 3:08 AM CLINIC OTHER CAMPUS REPOSITORY HNO ID: [id number] Author: Yared Reynolds Service: General Internal Medicine Author Type: Resident Type: Progress Notes Filed: 12/13/2017 4:52 AM Note Text: Yared Reynolds D.O. - Nurse paged around 2:55 AM to report that the patient was complaining of new onset chest pain. I immediately saw patient at bedside. Patient stated that the chest pain was present upon waking at 2:30 AM, dull, pressure-like discomfort/pain, distributed across the top of chest in collar-like distribution, non-radiating to arm, back or jaw, not associated with diaphoresis, lightheadedness, or nausea, and she stated it was worsening with passing time. She states she has never before had a chest discomfort like this and she has no history of CAD or SC. I was able to exaggerate the discomfort with palpation of the area of complaint. I ordered STAT portable chest X-ray, EKG, troponin x1 to rule out ACS. Will follow closely. FOCUSED PHYSICAL EXAM: General: No acute distress. Alert and oriented to self, place, and time. Cooperative with interview and exam. Appropriate affect. Eyes: Pupils equal, round, reactive to light. No scleral icterus noted. Conjunctiva pink. Cardiovascular: Regular rate and rhythm. Appreciable Grade II/ systolic murmur best heard at right and left USBs. No gallops, rubs heard on auscultation. Normal S1/S2. Respiratory: Lungs clear to auscultation bilaterally. No wheezes, rales, rhonchi heard on auscultation. Abdomen: Soft. Non-tender. Non-distended. Bowel sounds present in all four quadrants, normoactive. No bruits on auscultation. Extremities: Right hand dorsum with 2+ pitting edema. Trace edema of left hand. No BLE edema. No cyanosis or clubbing. No rashes or joint deformity. Pulses: Dorsalis pedis, posterior tibial, and radial pulses 2+ bilaterally. Capillary refill < 2 seconds. UPDATE: EKG was reviewed soon after it was obtained; NSR without ST segment elevations, normal EKG.Troponin was 0.016. Chest X- ray was not read by radiology yet but seem to show obliteration of left heart border possibly consolidation versus effusion. Increased hilar markings suggesting pulmonary vascular congestion when compared to last CXR which was a March 2016 study. No mediastinal widening, trachea midline, no evidence of pleural defects or pneumothorax. Patient and had turned off light in room and went back to sleep between bedside visits. HEMOGRAM Collected: 12/13/2017 Status: F Source: [facility] 3:05 AM HEALTH SYSTEM REPOSITORY TYPE CODE TESTS RESULT OUT OF REFERENCE UNITS RANGE LAB WBC(LOINC) 3.98-10.04 thou/cmm WBC 9.10 LAB RBC(LOINC) 3.93-5.22 mil/cmm Low RBC 2.90 LAB HGB(LOINC) 11.2-15.7 g/dL Low Hgb 8.5 LAB HCT(LOINC) 34.1-44.9 % Low Hct 27.7 LAB MCV(LOINC) 79.4-94.8 fl High MCV 95.5 LAB MCH(LOINC) 25.6-32.2 pg MCH 29.3 LAB MCHC(LOINC) 31.6-34.8 % Low MCHC 30.7 LAB RDW(LOINC) 11.7-14.4 % High RDW 16.1 LAB RDWSD(LOINC 36.4-46.3 fl ) High RDW SD 56.8 LAB PLT(LOINC) 182-369 thou/cmm Low Platelet 174 LAB MPV(LOINC) 9.4-12.3 fl MPV 9.9 Performed By: #### CBC1 #### [place] [address] TROPONIN I Collected: 12/13/2017 Status: F Source: [facility] 3:[facility] REPOSITORY TYPE CODE TESTS RESULT OUT OF REFERENCE UNITS RANGE LAB TROP(LOINC) 0.015-0.045 ng/ml Troponin I 0.016 Performed By: #### TROP #### [place] [address] BASIC PANEL Collected: 12/13/2017 Status: F Source: [facility] [address] SYSTEM REPOSITORY TYPE CODE TESTS RESULT OUT OF REFERENCE UNITS RANGE LAB NA(LOINC) 136-145 mEq/L Sodium Blood 136 LAB K(LOINC) 3.5-5.1 mEq/L Potassium Blood 4.2 LAB CL(LOINC) 98-107 mEq/L Chloride Blood 99 LAB CO2(LOINC) 21-32 mEq/L CO2 Blood 32 LAB GLU(LOINC) 70-99 mg/dL Glucose High Blood 209 LAB BUN(LOINC) 7-18 mg/dL BUN High Blood 59 LAB CREA(LOINC 0.51-0.95 mg/dL ) High Creatinine Blood 3.70 LAB CA(LOINC) 8.5-10.1 mg/dL Calcium Blood 8.6 LAB ANGAP(LOIN 8-16 C) Anion Gap 9 Performed By: #### P8 #### [place] [address] MDRD GFR Collected: 12/13/2017 Status: F Source: [address] SYSTEM REPOSITORY TYPE CODE TESTS RESULT OUT OF RANGE REFERENCE UNITS LAB GFRFN(LOINC >60mL/min/1.73m ) 2 eGFR 12.11 Result Comment: If the patient is , multiply the result by 1.210. Performed By: #### GFR #### [address] [address] NURSING PROG Observed: 12/13/2017 Status: COMPLETED Source: [place] 2:50 AM [facility] REPOSITORY HNO ID: [id number] Author: Michell (Rn) ELI Ríos Service: Nursing Author Type: Registered Nurse Type: Nursing Progress Note Filed: 12/13/2017 3:17 AM Note Text: Pt c/o chest pain. States she woke up to it around 230a. Tech states pt walked to the bathroom without difficulty. Pt describes it as a dull, heavy feeling across her entire chest. No pain radiating to arms or back; no nausea. VS charted. [facility] paged - resident on their way to the floor to evaluate pt. GLUCOSE METER Collected: 12/12/2017 Status: F Source: [facility] 7:52 PM HEALTH SYSTEM REPOSITORY TYPE CODE TESTS RESULT OUT OF REFERENCE UNITS RANGE LAB GLUBL(LOINC 70-99 mg/dL ) High Glucose Meter 254 Result Comment: RN NOTIFIED Performed By: #### GLMET #### [place] [address] NURSING PROG Observed: 12/12/2017 Status: COMPLETED Source: [place] 6:29 PM [facility] REPOSITORY HNO ID: [id number] Author: Yvonne (Rn) ELI Martinez Service: (none) Author Type: Registered Nurse Type: Nursing Progress Note Filed: 12/12/2017 6:32 PM Note Text: Nursing Progress Note Patient Name: Michael Garcia Patient Location: [place] [address] [address]* Daily Note: 1527 Pt arrived to unit from home with family on supplemental O2. VSS. Admission assessment completed, page out to sound (dr worley admitting) 1550 Spoke with sound, trying to transfer patient to [facility]? Will await further instruction. 1600 Pt wants to spend the night, pt in semi-private room. Spoke with [facility], pt okay to move to [id number] when clean. 1630 Sound and house med on unit, pt being transferred to house med service 1830 Orders placed for patient. Insulin scheduled q6 not achs? Page out to house med This note was completed by: Yvonne Martinez RN HISTORY PHYSICAL Observed: 12/12/2017 Status: COMPLETED Source: [place] 5:10 PM CLINIC OTHER CAMPUS REPOSITORY HNO ID: [id number] Author: Lori Yadavij Service: Hospital Medicine Author Type: Resident Type: HANDP Filed: 12/13/2017 2:59 PM Note Text: Attestation signed by Bianca Lobo at 12/13/2017 6:28 PM Discussed at length with resident on 12/12, agreed in initial plan of care below, see also follow up notes. INTERNAL MEDICINE HANDP EXAMINATION SERVICE DATE: 12/12/2017 SERVICE TIME: 5:11 PM PRIMARY CARE PHYSICIAN: Mat Duffy MD Subjective CHIEF COMPLAINT: Generalized weakness/ elevated P- ANCA HISTORY OF PRESENT ILLNESS: Ms. Garcia is a 72 year old female with PMHx of DM2, HTN, CREST, PAD, h/o cerebral bleed, mild gastritis, INES (on CPAP), recurrent PNA, CKD stage 3, chronic hypoxic respiratory failure on 3.5 L at home, She was admitted to [facility] 11/27/17, she presented with chest pain, minimal cough, no fever, CXR showed left pleural effusion and possible underlying consolidation, she was started on levaquin and zosyn. Patient was treated for CAP. Also during that admission she developed Afib RVR, she was started on amiodarone, metoprolol, no anticoagulation (unsure of the reason). She was danial treated for Klebsiella UTI. Afterwards she developed JORGE/CKD for which dialysis was started about 1 week ago. P-ANCA results came back after discharge as high, nephrology advised to admit her for further evaluation and management. Currently she complains of generalized swelling, and weakness. She makes minimal amount of urine, no dysuria. She also c/o SOB, no chest pain, no cough, no palpitations, no fever, no chills. She does have b/l LE swelling. PAST MEDICAL HISTORY Diagnosis Date - Cerebellar hemorrhage, acute ([facility]) 04/04/2016 - CKD (chronic kidney disease) stage 3, GFR 30-59 ml/min 04/04/2016 - CREST variant of scleroderma ([facility]) 04/04/2016 - Diabetic peripheral neuropathy associated with type 2 diabetes mellitus ([facility]) 01/19/2016 - Essential hypertension with goal blood pressure less than 130/85 01/19/2016 - Hyperlipidemia 01/19/2016 - Ischemic ulcer of finger with necrosis of muscle ([facility]) 01/19/2016 Left 3rd finger tip - Lazy eye of left side 1950s - Legally blind 01/19/2016 - Primary osteoarthritis of right knee 01/19/2016 - Retinal hemorrhage of right eye 2007 - S/P craniotomy 04/04/2016 - Type 2 diabetes mellitus with renal manifestations ([facility]) 01/19/2016 Dr. Romeo, nephrology - Umbilical hernia without obstruction and without gangrene 01/19/2016 PAST SURGICAL HISTORY Procedure Laterality Date - ACHILLES TENDON SURGERY HX Right 1995 - BREAST BIOPSY CORE Left 2013 benign - [facility] 10/27/2017 Colonoscopy w/bx [facility] - EGD W/O OR W/BRUSH/WASH 10/27/2017 EGD w/bx [facility] - LAPAROSCOPIC CHOLEYCYSTECTOMY Cholecystectomy, lap - REMOVAL OF TONSILS,<12 Y/O 1974 Tonsillectomy - REPAIR ROTATOR CUFF,ACUTE Right 1986 - REVISE MEDIAN N/CARPAL TUNNEL SURG Right 1989 - REVISE ULNAR NERVE AT ELBOW Right 1989 FAMILY HISTORY Problem Relation Age of Onset - Cancer Mother lung - Coronary Artery Disease Father 63 - Breast Cancer Sister - Diabetes Maternal Grandmother Social History Substance Use Topics - Smoking status: Never Smoker - Smokeless tobacco: Never Used - Alcohol use 1.5 oz/week 1 Cans of Beer (12oz) per week Comment: ocas MEDICATIONS: Prescriptions Prior to Admission: cholecalciferol, vitamin D3, 50,000 unit tab Take 1 tablet by mouth once every month. Disp: Rfl: Unknown at Unknown time amiodarone (PACERONE) 200 mg tablet Take 200 mg by mouth once daily. Disp: Rfl: 12/12/2017 at Unknown time aspirin, enteric coated (ECOTRIN) 325 mg EC tablet Take 325 mg by mouth daily with breakfast. Disp: Rfl: 12/12/2017 at Unknown time FERREX 150 150 mg iron capsule Take 1 capsule by mouth once daily. Disp: 90 capsule Rfl: 1 12/12/2017 at Unknown time pantoprazole DR (PROTONIX) 40 mg tablet Take 1 tablet by mouth once daily. Disp: 90 tablet Rfl: 3 12/12/2017 at Unknown time LANTUS SOLOSTAR 100 unit/mL (3 mL) inpn INJECT 39 UNITS SUBCUTANEOUSLY TWICE DAILY Disp: 75 mL Rfl: 3 12/12/2017 at Unknown time NOVOLOG FLEXPEN 100 unit/mL inpn INJECT 4 TIMES DAILY DIRECTED. GLUCOSE LESS THAN 150 = 0 U; 150-199=2 U; 200-249=4 U; 250-299=6 U; 300-349=8 U; >350=10 U Disp: 45 mL Rfl: 1 12/12/2017 at Unknown time gabapentin (NEURONTIN) 300 mg capsule Take 1 capsule by mouth daily at bedtime. Disp: 90 capsule Rfl: 3 12/11/2017 at Unknown time hydrALAZINE (APRESOLINE) 100 mg tablet Take 1 tablet by mouth three times daily. Disp: 270 tablet Rfl: 1 12/12/2017 at Unknown time cloNIDine HCl (CATAPRES) 0.1 mg tablet Take 1 tablet by mouth three times daily. Disp: 270 tablet Rfl: 1 12/12/2017 at Unknown time metoprolol succinate ER (TOPROL XL) 25 mg 24 hr tablet Take 1 tablet by mouth once daily. Disp: 90 tablet Rfl: 3 12/12/2017 at Unknown time furosemide (LASIX) 40 mg tablet Take 1.5 tablets by mouth once daily. Disp: 135 tablet Rfl: 1 12/12/2017 at Unknown time atorvastatin (LIPITOR) 40 mg tablet Take 1 tablet by mouth daily at bedtime. For cholesterol. Disp: 90 tablet Rfl: 3 12/11/2017 at Unknown time gabapentin (NEURONTIN) 100 mg capsule Take one(1) tablet two(2) times daily. Disp: 60 capsule Rfl: 0 COMPOUNDED PRESCRIPTION Portable oxygen Dx: Hypoxemia. R09.02. 3 LPM via NC continuous. Disp: 1 Each Rfl: 0 ergocalciferol, vitamin D2, (VITAMIN D) 50,000 unit capsule Take 1 capsule by mouth once every month. Disp: 3 capsule Rfl: 3 albuterol HFA (VENTOLIN HFA) 90 mcg/actuation inhaler Inhale 2 Puffs as instructed every 4 hours as needed for Wheezing/Shortness of Breath. Disp: 1 Inhaler Rfl: 0 ALLERGIES No Known Allergies COMPLETE REVIEW OF SYSTEMS: PAIN ASSESSMENT: Negative for acute pain. GENERAL: No weight loss, or fevers, + fatigue HEENT: Negative for frequent or significant headaches, No changes in hearing or vision, no nose bleeds or other nasal problems NECK: Negative for lumps, goiter, pain and significant neck swelling, she had right dialysis catheter. RESPIRATORY: Negative for cough, hemoptysis, she does endorse shortness of breath CARDIOVASCULAR: Negative for chest pain, + leg swelling b/l,denies palpitations GI: No nausea, vomiting, or diarrhea : minimal urine, no dysuria MUSCULOSKELETAL: Negative for joint pain SKIN: Negative for lesions, rash, and itching. She does have generalized swelling HEMATOLOGY/LYMPHOLOGY: Negative for prolonged bleeding, bruising easily or swollen nodes ENDOCRINE: Negative for cold or heat intolerance, polyuria, polydipsia and goiter. NEURO: No headaches, syncope, paralysis, seizures or tremors Objective PHYSICAL EXAM: Patient Vitals for the past 24 hrs: BP Temp Temp src Pulse Resp SpO2 Height Weight 12/12/17 1527 (!) 122/46 36.3 ?C (97.3 ?F) Oral (!) 55 16 94 % 165.1 cm (5' 5) 99.5 kg (219 lb 5.7 oz) Body mass index is 36.5 kg/(m2). GENERAL: Alert, no distress, cooperative, Morbidly Obese SKIN: Positive findings: anasarca OROPHARYNX: Lips, mucosa, and tongue are normal NECK: No jugulovenous distention, Supple LUNGS: bilateral diffuse wheezing, crackles, decreased breath sounds bilaterally. CARDIAC: Normal S1 and S2; no rubs, murmurs. Bradycardic. ABDOMEN: Abdomen soft, non-tender, BS normal, + abdominal distension. EXTREMETIES: no deformities, clubbing or skin discoloration. +2/3 b/l LE edema. B/l hand swelling. NEURO: Alert, oriented X 3. Non-focal. Cranial nerves II-XII intact PULSES: 2+ radial, 2+ carotid DATA: Diagnostic tests reviewed for today's visit: Most recent labs and imaging results. Assessment/Plan 72 year old female with PMHx of DM2, HTN, CREST, PAD, h/o cerebral bleed, mild gastritis, INES (on CPAP), recurrent PNA, CKD stage 3, chronic hypoxic respiratory failure on 3.5 L at home, she presents c/o generalized weakness. Nephrology advised to admit the patient for further management of her JORGE on CKD. JORGE on CKD needing dialysis: - P- ANCA is elevated, suspecting microscopic polyangitis - Dialysis is scheduled tomorrow 12/13/17 - Kidney Bx scheduled 12/15/17 - Plan for plasmopheresis 12/16/17 - Consult nephrology Chronic hypoxic respiratory failure due to severe mixed ventilatory defct detected on PFT 2016 at [place]/ [facility] - also complicated with left sided pleural effusion, was supposed to have thoracentesis done at [place], will check CXR, and order afterwards IR guided thoracentesis. - c/w PRN albuterol inhaler. - incentive spirometer - might consider pulmonary consult as well. - no need for ABx at this time. No clinical signs of worsening respiratory failure, no cough, no sputum, no chest pain. DM2: - Will decrease her basal insulin and add SSI given patient is on dialysis. - monitor glucose Ac/ HS. HTN - Hold BB 2/2 bradycardia - Hold Hydralazine 2/2 autoimmune issues - Continue Clonidine - Held lasix - patient anuric Mild Gastritis - Continue with PPI A.fib - Bradycardic - Will order EKG - Hold BB - Will hold Amiodarone 2/2 pulm HTN CREST - causing pulmonary hypertension and contributing to her chronic respiratory failure. PAD - Continue ASA, Statin INES - CPAP at night Nasal pressure ulcer (POA) 2/2 cpap mask DVT PPX - Lovenox renal dose SIGNATURE: Lori Karimi MD PATIENT NAME: Michael Garcia DATE: December 12, 2017 TIME: 5:10 PM PAGER/CONTACT #: [id number] HEMOGRAM/DIFF Collected: 12/12/2017 Status: F Source: [facility] 4:20 PM HEALTH SYSTEM REPOSITORY TYPE CODE TESTS RESULT OUT OF REFERENCE UNITS RANGE LAB WBC(LOINC) 3.98-10.04 thou/cmm WBC 8.85 LAB RBC(LOINC) 3.93-5.22 mil/cmm Low RBC 2.96 LAB HGB(LOINC) 11.2-15.7 g/dL Low Hgb 8.7 LAB HCT(LOINC) 34.1-44.9 % Low Hct 28.7 LAB MCV(LOINC) 79.4-94.8 fl MCV High 97.0 LAB MCH(LOINC) 25.6-32.2 pg MCH 29.4 LAB MCHC(LOINC 31.6-34.8 % ) Low MCHC 30.3 LAB RDW(LOINC) 11.7-14.4 % RDW High 15.9 LAB RDWSD(LOIN 36.4-46.3 fl C) RDW SD High 56.4 LAB PLT(LOINC) 182-369 thou/cmm Low Platelet 168 LAB MPV(LOINC) 9.4-12.3 fl MPV 10.3 LAB SEG(LOINC) % Seg Neutrophil 83.2 LAB IGRE(LOINC % ) Immature Grans 0.60 LAB LYMPH(LOIN % C) Lymphocyte 8.4 LAB MNO(LOINC) % Monocyte 6.4 LAB EOSIN(LOIN % C) Eosinophil 1.1 LAB BASO(LOINC % ) Basophil 0.3 LAB SEGN(LOINC 1.56-6.13 thou/cmm ) Abs. High Neut 7.36 LAB IGAB(LOINC 0.00-0.05 thou/cmm ) Abs Immature Grans 0.05 LAB LYMN(LOINC 1.18-3.74 thou/cmm ) Low Abs. Lymph 0.74 LAB MONON(LOIN 0.27-0.70 thou/cmm C) Abs. [place] 0.57 LAB EOSN(LOINC 0.00-0.31 thou/cmm ) Abs. Eosin 0.10 LAB BASON(LOIN 0.01-0.08 thou/cmm C) Abs. Baso 0.03 Performed By: #### CBCD1 #### [facility] [address] [place] [address] COMPREHENSIVE PANEL Collected: 12/12/2017 Status: F Source: [facility] 4:20 PM HEALTH SYSTEM REPOSITORY TYPE CODE TESTS RESULT OUT OF REFERENCE UNITS RANGE LAB NA(LOINC) 136-145 mEq/L Low Sodium Blood 135 LAB K(LOINC) 3.5-5.1 mEq/L Potassium Blood 4.2 LAB CL(LOINC) 98-107 mEq/L Chloride Blood 98 LAB CO2(LOINC) 21-32 mEq/L CO2 Blood 32 LAB GLU(LOINC) 70-99 mg/dL Glucose High Blood 139 LAB BUN(LOINC) 7-18 mg/dL BUN Blood High 51 LAB CREA(LOINC 0.51-0.95 mg/dL ) Creatinine High Blood 3.23 LAB CA(LOINC) 8.5-10.1 mg/dL Calcium Blood 8.6 LAB ALB(LOINC) 3.4-5.0 g/dL Low Albumin Blood 2.5 LAB TP(LOINC) 6.4-8.2 g/dL Total Protein 7.3 LAB AST(LOINC) 9-37 U/L AST-SGOT Blood 12 LAB ALT(LOINC) 12-78 U/L Low ALT-SGPT Blood 7 LAB ALKP(LOINC 46-116 U/L ) Alk Phosphatase 72 LAB BILIT(LOIN 0.2-1.0 mg/dL C) Total Bilirubin 0.3 LAB ANGAP(LOIN 8-16 C) Anion Gap 9 Performed By: #### P14 #### [facility] [address] [place] [address] PHOSPHORUS BLOOD Collected: 12/12/2017 Status: F Source: [facility] 4:20 PM HEALTH SYSTEM REPOSITORY TYPE CODE TESTS RESULT OUT OF REFERENCE UNITS RANGE LAB PHOS(LOINC 2.5-4.9 mg/dL ) High Phosphorus Blood 5.0 Performed By: #### PHOS #### [facility] [address] [place] [address] MAGNESIUM BLOOD Collected: 12/12/2017 Status: F Source: [facility] 4:20 PM HEALTH SYSTEM REPOSITORY TYPE CODE TESTS RESULT OUT OF REFERENCE UNITS RANGE LAB MAG(LOINC) 1.6-2.6 mg/dL Magnesium Blood 2.3 Performed By: #### MAG #### [facility] [address] [place] [address] MDRD GFR Collected: 12/12/2017 Status: F Source: [facility] 4:20 PM HEALTH SYSTEM REPOSITORY TYPE CODE TESTS RESULT OUT OF RANGE REFERENCE UNITS LAB GFRFN(LOINC >60mL/min/1.73m ) 2 eGFR 14.16 Result Comment: If the patient is , multiply the result by 1.210. Performed By: #### GFR #### [facility] [address] [place] [address] HGB A1C Collected: 12/12/2017 Status: F Source: [facility] 4:20 PM HEALTH SYSTEM REPOSITORY TYPE CODE TESTS RESULT OUT OF RANGE REFERENCE UNITS LAB A1C5(LOINC) 4.2-6.3 % High Hgb A1c 7.6 Result Comment: Method is National Glycohemoglobin Standardization Program (NGSP) compliant. LAB ESAVG(LOINC) mg/dl Est. Avg Glucose 171 Performed By: #### HA1C #### [facility] [address] [place] [address] GLUCOSE METER Collected: 12/12/2017 Status: F Source: [facility] 3:55 PM HEALTH SYSTEM REPOSITORY TYPE CODE TESTS RESULT OUT OF REFERENCE UNITS RANGE LAB GLUBL(LOINC 70-99 mg/dL ) High Glucose Meter 178 Result Comment: RN NOTIFIED Performed By: #### GLMET #### [facility] [address] [place] [address] HOSP Observed: 12/12/2017 Status: COMPLETED Source: [place] 12:00 AM CLINIC OTHER CAMPUS REPOSITORY Patient:Michael Garcia MRN: <[id number]> Height:5' 5(1.651 m) Weight:217 lb 2.5 oz (98.5 kg) Outpatient Medications as of 12/16/17: amiodarone (PACERONE) 200 mg tablet aspirin, enteric coated (ECOTRIN) 325 mg EC tablet FERREX 150 150 mg iron capsule pantoprazole DR (PROTONIX) 40 mg tablet LANTUS SOLOSTAR 100 unit/mL (3 mL) inpn NOVOLOG FLEXPEN 100 unit/mL inpn gabapentin (NEURONTIN) 100 mg capsule COMPOUNDED PRESCRIPTION ergocalciferol, vitamin D2, (VITAMIN D) 50,000 unit capsule gabapentin (NEURONTIN) 300 mg capsule hydrALAZINE (APRESOLINE) 100 mg tablet cloNIDine HCl (CATAPRES) 0.1 mg tablet metoprolol succinate ER (TOPROL XL) 25 mg 24 hr tablet furosemide (LASIX) 40 mg tablet atorvastatin (LIPITOR) 40 mg tablet albuterol HFA (VENTOLIN HFA) 90 mcg/actuation inhaler Admission/Clinic Administered Medications as of 12/16/17: perflutren lipid microspheres 1.1 mg/mL 1.3 mL injection (DEFINITY) insulin lispro 4 Units pen (rapid acting) (HumaLOG KWIKPEN) loratadine 5 mg tab(s) (CLARITIN) insulin lispro pen (rapid acting) (HumaLOG KWIKPEN) fluticasone 50 mcg/actuation 1 [place] (FLONASE) pill splitter (patient-specific) atorvastatin 40 mg tab(s) (LIPITOR) epoetin osvaldo 3,000 Units injection (PROCRIT) heparin 1,000 unit/mL 3,800 Units injection polyethylene glycol 3350 17 g packet (MIRALAX, GLYCOLAX) senna-docusate 8.6-50 mg 1 tablet (SENNA-S) insulin glargine 39 Units pen (long acting) (LANTUS SOLOSTAR, BASAGLAR) metoprolol tartrate (short acting) 12.5 mg tab(s) (LOPRESSOR) sodium chloride-aloe vera topical nasal gel (AYR GEL w/ALOE) albuterol HFA 90 mcg/actuation 2 Puff (PROVENTIL HFA, VENTOLIN HFA) cloNIDine HCl 0.1 mg tab(s) (CATAPRES) pantoprazole DR 40 mg tab(s) (PROTONIX) dextrose 40 % 15 g glucagon 1 mg injection (GLUCAGEN) dextrose 50% in water 25 mL syringe Problem List: Type 2 diabetes mellitus with renal manifestations (HCC) [E11.29] Essential hypertension with goal blood pressure less than 130/85 [I10] Hyperlipidemia [E78.5] Legally blind [H54.8] Diabetic peripheral neuropathy associated with type 2 diabetes mellitus (HCC) [E11.42] Primary osteoarthritis of right knee [M17.11] S/P craniotomy [Z98.890] CREST variant of scleroderma ([facility]) [M34.1] CKD (chronic kidney disease) stage 3, GFR 30-59 ml/min [N18.3] Hypoxemia [R09.02] Acute diastolic CHF (congestive heart failure) ([facility]) [I50.31] Anemia in stage 3 chronic kidney disease [N18.3, D63.1] JORGE (acute kidney injury) ([facility]) [N17.9] Allergies: No Known Allergies Date Verified:12/16/17 Lab Values Lab Value Units Date High Low POTA* 4.3 mEq/L 12/16/2017 5.1 3.5 JULIO* 25.5 % 12/16/2017 44.9 34.1 Progress Notes (): Lori Karimi MD 12/13/2017 2:59 PM Attested Attestation signed by Bianca Lobo at 12/13/2017 6:28 PM Discussed at length with resident on 12/12, agreed in initial plan of care below, see also follow up notes. INTERNAL MEDICINE HANDP EXAMINATION SERVICE DATE: 12/12/2017 SERVICE TIME: 5:11 PM PRIMARY CARE PHYSICIAN: Mat Duffy MD Subjective CHIEF COMPLAINT: Generalized weakness/ elevated P- ANCA HISTORY OF PRESENT ILLNESS: Ms. Garcia is a 72 year old female with PMHx of DM2, HTN, CREST, PAD, h/o cerebral bleed, mild gastritis, INES (on CPAP), recurrent PNA, CKD stage 3, chronic hypoxic respiratory failure on 3.5 L at home, She was admitted to [facility] 11/27/17, she presented with chest pain, minimal cough, no fever, CXR showed left pleural effusion and possible underlying consolidation, she was started on levaquin and zosyn. Patient was treated for CAP. Also during that admission she developed Afib RVR, she was started on amiodarone, metoprolol, no anticoagulation (unsure of the reason). She was danial treated for Klebsiella UTI. Afterwards she developed JORGE/CKD for which dialysis was started about 1 week ago. P-ANCA results came back after discharge as high, nephrology advised to admit her for further evaluation and management. Currently she complains of generalized swelling, and weakness. She makes minimal amount of urine, no dysuria. She also c/o SOB, no chest pain, no cough, no palpitations, no fever, no chills. She does have b/l LE swelling. PAST MEDICAL HISTORY Diagnosis Date - Cerebellar hemorrhage, acute (HCC) 04/04/2016 - CKD (chronic kidney disease) stage 3, GFR 30-59 ml/min 04/04/2016 - CREST variant of scleroderma ([facility]) 04/04/2016 - Diabetic peripheral neuropathy associated with type 2 diabetes mellitus ([facility]) 01/19/2016 - Essential hypertension with goal blood pressure less than 130/85 01/19/2016 - Hyperlipidemia 01/19/2016 - Ischemic ulcer of finger with necrosis of muscle ([facility]) 01/19/2016 Left 3rd finger tip - Lazy eye of left side - Legally blind 01/19/2016 - Primary osteoarthritis of right knee 01/19/2016 - Retinal hemorrhage of right eye 2007 - S/P craniotomy 04/04/2016 - Type 2 diabetes mellitus with renal manifestations ([facility]) 01/19/2016 Dr. Romeo, nephrology - Umbilical hernia without obstruction and without gangrene 01/19/2016 PAST SURGICAL HISTORY Procedure Laterality Date - ACHILLES TENDON SURGERY HX Right 1995 - BREAST BIOPSY CORE Left 2013 benign - [facility]ONOSCOP W/ [facility] [facility] 10/27/2017 Colonoscopy w/bx [facility] - EGD W/O OR W/BRUSH/WASH 10/27/2017 EGD w/bx [facility] - LAPAROSCOPIC CHOLEYCYSTECTOMY Cholecystectomy, lap - REMOVAL OF TONSILS,<14 Y/O 1972 Tonsillectomy - REPAIR ROTATOR CUFF,ACUTE Right 1986 - REVISE MEDIAN N/CARPAL TUNNEL SURG Right 1989 - REVISE ULNAR NERVE AT ELBOW Right 1989 FAMILY HISTORY Problem Relation Age of Onset - Cancer Mother lung - Coronary Artery Disease Father 63 - Breast Cancer Sister - Diabetes Maternal Grandmother Social History Substance Use Topics - Smoking status: Never Smoker - Smokeless tobacco: Never Used - Alcohol use 1.5 oz/week 1 Cans of Beer (12oz) per week Comment: ocas MEDICATIONS: Prescriptions Prior to Admission: cholecalciferol, vitamin D3, 50,000 unit tab Take 1 tablet by mouth once every month. Disp: Rfl: Unknown at Unknown time amiodarone (PACERONE) 200 mg tablet Take 200 mg by mouth once daily. Disp: Rfl: 12/12/2017 at Unknown time aspirin, enteric coated (ECOTRIN) 325 mg EC tablet Take 325 mg by mouth daily with breakfast. Disp: Rfl: 12/12/2017 at Unknown time FERREX 150 150 mg iron capsule Take 1 capsule by mouth once daily. Disp: 90 capsule Rfl: 1 12/12/2017 at Unknown time pantoprazole DR (PROTONIX) 40 mg tablet Take 1 tablet by mouth once daily. Disp: 90 tablet Rfl: 3 12/12/2017 at Unknown time LANTUS SOLOSTAR 100 unit/mL (3 mL) inpn INJECT 39 UNITS SUBCUTANEOUSLY TWICE DAILY Disp: 75 mL Rfl: 3 12/12/2017 at Unknown time NOVOLOG FLEXPEN 100 unit/mL inpn INJECT 4 TIMES DAILY DIRECTED. GLUCOSE LESS THAN 150 = 0 U; 150-199=2 U; 200-249=4 U; 250-299=6 U; 300- 349=8 U; >350=10 U Disp: 45 mL Rfl: 1 12/12/2017 at Unknown time gabapentin (NEURONTIN) 300 mg capsule Take 1 capsule by mouth daily at bedtime. Disp: 90 capsule Rfl: 3 12/11/2017 at Unknown time hydrALAZINE (APRESOLINE) 100 mg tablet Take 1 tablet by mouth three times daily. Disp: 270 tablet Rfl: 1 12/12/2017 at Unknown time cloNIDine HCl (CATAPRES) 0.1 mg tablet Take 1 tablet by mouth three times daily. Disp: 270 tablet Rfl: 1 12/12/2017 at Unknown time metoprolol succinate ER (TOPROL XL) 25 mg 24 hr tablet Take 1 tablet by mouth once daily. Disp: 90 tablet Rfl: 3 12/12/2017 at Unknown time furosemide (LASIX) 40 mg tablet Take 1.5 tablets by mouth once daily. Disp: 135 tablet Rfl: 1 12/12/2017 at Unknown time atorvastatin (LIPITOR) 40 mg tablet Take 1 tablet by mouth daily at bedtime. For cholesterol. Disp: 90 tablet Rfl: 3 12/11/2017 at Unknown time gabapentin (NEURONTIN) 100 mg capsule Take one(1) tablet two(2) times daily. Disp: 60 capsule Rfl: 0 COMPOUNDED PRESCRIPTION Portable oxygen Dx: Hypoxemia. R09.02. 3 LPM via NC continuous. Disp: 1 Each Rfl: 0 ergocalciferol, vitamin D2, (VITAMIN D) 50,000 unit capsule Take 1 capsule by mouth once every month. Disp: 3 capsule Rfl: 3 albuterol HFA (VENTOLIN HFA) 90 mcg/actuation inhaler Inhale 2 Puffs as instructed every 4 hours as needed for Wheezing/Shortness of Breath. Disp: 1 Inhaler Rfl: 0 ALLERGIES No Known Allergies COMPLETE REVIEW OF SYSTEMS: PAIN ASSESSMENT: Negative for acute pain. GENERAL: No weight loss, or fevers, + fatigue HEENT: Negative for frequent or significant headaches, No changes in hearing or vision, no nose bleeds or other nasal problems NECK: Negative for lumps, goiter, pain and significant neck swelling, she had right dialysis catheter. RESPIRATORY: Negative for cough, hemoptysis, she does endorse shortness of breath CARDIOVASCULAR: Negative for chest pain, + leg swelling b/l,denies palpitations GI: No nausea, vomiting, or diarrhea : minimal urine, no dysuria MUSCULOSKELETAL: Negative for joint pain SKIN: Negative for lesions, rash, and itching. She does have generalized swelling HEMATOLOGY/LYMPHOLOGY: Negative for prolonged bleeding, bruising easily or swollen nodes ENDOCRINE: Negative for cold or heat intolerance, polyuria, polydipsia and goiter. NEURO: No headaches, syncope, paralysis, seizures or tremors Objective PHYSICAL EXAM: Patient Vitals for the past 24 hrs: BP Temp Temp src Pulse Resp SpO2 Height Weight 12/12/17 1527 (!) 122/46 36.3 ?C (97.3 ?F) Oral (!) 55 16 94 % 165.1 cm (5' 5) 99.5 kg (219 lb 5.7 oz) Body mass index is 36.5 kg/(m2). GENERAL: Alert, no distress, cooperative, Morbidly Obese SKIN: Positive findings: anasarca OROPHARYNX: Lips, mucosa, and tongue are normal NECK: No jugulovenous distention, Supple LUNGS: bilateral diffuse wheezing, crackles, decreased breath sounds bilaterally. CARDIAC: Normal S1 and S2; no rubs, murmurs. Bradycardic. ABDOMEN: Abdomen soft, non-tender, BS normal, + abdominal distension. EXTREMETIES: no deformities, clubbing or skin discoloration. +2/3 b/l LE edema. B/l hand swelling. NEURO: Alert, oriented X 3. Non-focal. Cranial nerves II-XII intact PULSES: 2+ radial, 2+ carotid DATA: Diagnostic tests reviewed for today's visit: Most recent labs and imaging results. Assessment/Plan 72 year old female with PMHx of DM2, HTN, CREST, PAD, h/o cerebral bleed, mild gastritis, INES (on CPAP), recurrent PNA, CKD stage 3, chronic hypoxic respiratory failure on 3.5 L at home, she presents c/o generalized weakness. Nephrology advised to admit the patient for further management of her JORGE on CKD. JORGE on CKD needing dialysis: - P- ANCA is elevated, suspecting microscopic polyangitis - Dialysis is scheduled tomorrow 12/13/17 - Kidney Bx scheduled 12/15/17 - Plan for plasmopheresis 12/16/17 - Consult nephrology Chronic hypoxic respiratory failure due to severe mixed ventilatory defct detected on PFT 2016 at [place]/ [facility] - also complicated with left sided pleural effusion, was supposed to have thoracentesis done at [place], will check CXR, and order afterwards IR guided thoracentesis. - c/w PRN albuterol inhaler. - incentive spirometer - might consider pulmonary consult as well. - no need for ABx at this time. No clinical signs of worsening respiratory failure, no cough, no sputum, no chest pain. DM2: - Will decrease her basal insulin and add SSI given patient is on dialysis. - monitor glucose Ac/ HS. HTN - Hold BB 2/2 bradycardia - Hold Hydralazine 2/2 autoimmune issues - Continue Clonidine - Held lasix - patient anuric Mild Gastritis - Continue with PPI A.fib - Bradycardic - Will order EKG - Hold BB - Will hold Amiodarone 2/2 pulm HTN CREST - causing pulmonary hypertension and contributing to her chronic respiratory failure. PAD - Continue ASA, Statin INES - CPAP at night Nasal pressure ulcer (POA) 2/2 cpap mask DVT PPX - Lovenox renal dose SIGNATURE: Lori Karimi MD PATIENT NAME: Michael Garcia DATE: December 12, 2017 TIME: 5:10 PM PAGER/CONTACT #: [phone] Previous Version Yvonne Martinez, RN, RN 12/12/2017 6:32 PM Signed Nursing Progress Note Patient Name: Michael Garcia Patient Location: [place] [id number] [id number]* Daily Note: 1527 Pt arrived to unit from home with family on supplemental O2. VSS. Admission assessment completed, page out to [facility] (dr worley admitting) 1550 Spoke with [facility], trying to transfer patient to [facility]? Will await further instruction. 1600 Pt wants to spend the night, pt in semi-private room. [facility]oke with [facility], pt okay to move to 81 when clean. 1630 [facility] on unit, pt being transferred to [facility] service 1830 Orders placed for patient. Insulin scheduled q6 not achs? Page out to [facility] This note was completed by: Yvonne Martinez, RN January ELI Ríos, RN 12/13/2017 3:17 AM Signed Pt c/o chest pain. States she woke up to it around 230a. Tech states pt walked to the bathroom without difficulty. Pt describes it as a dull, heavy feeling across her entire chest. No pain radiating to arms or back; no nausea. VS charted. [facility] paged - resident on their way to the floor to evaluate pt. Yared Reynolds DO 12/13/2017 4:52 AM Addendum Yared Atassi, D.O. - Nurse paged around 2:55 AM to report that the patient was complaining of new onset chest pain. I immediately saw patient at bedside. Patient stated that the chest pain was present upon waking at 2:30 AM, dull, pressure-like discomfort/pain, distributed across the top of chest in collar-like distribution, non-radiating to arm, back or jaw, not associated with diaphoresis, lightheadedness, or nausea, and she stated it was worsening with passing time. She states she has never before had a chest discomfort like this and she has no history of CAD or SC. I was able to exaggerate the discomfort with palpation of the area of complaint. I ordered STAT portable chest X-ray, EKG, troponin x1 to rule out ACS. Will follow closely. FOCUSED PHYSICAL EXAM: General: No acute distress. Alert and oriented to self, place, and time. Cooperative with interview and exam. Appropriate affect. Eyes: Pupils equal, round, reactive to light. No scleral icterus noted. Conjunctiva pink. Cardiovascular: Regular rate and rhythm. Appreciable Grade II/ systolic murmur best heard at right and left USBs. No gallops, rubs heard on auscultation. Normal S1/S2. Respiratory: Lungs clear to auscultation bilaterally. No wheezes, rales, rhonchi heard on auscultation. Abdomen: Soft. Non-tender. Non-distended. Bowel sounds present in all four quadrants, normoactive. No bruits on auscultation. Extremities: Right hand dorsum with 2+ pitting edema. Trace edema of left hand. No BLE edema. No cyanosis or clubbing. No rashes or joint deformity. Pulses: Dorsalis pedis, posterior tibial, and radial pulses 2+ bilaterally. Capillary refill < 2 seconds. UPDATE: EKG was reviewed soon after it was obtained; NSR without ST segment elevations, normal EKG.Troponin was 0.016. Chest X-ray was not read by radiology yet but seem to show obliteration of left heart border possibly consolidation versus effusion. Increased hilar markings suggesting pulmonary vascular congestion when compared to last CXR which was a March 2016 study. No mediastinal widening, trachea midline, no evidence of pleural defects or pneumothorax. Patient and had turned off light in room and went back to sleep between bedside visits. Previous Version Jordyn Veliz MD 12/13/2017 4:50 PM Attested Attestation signed by Bianca Lobo at 12/13/2017 6:31 PM Discussed with team, chart again reviewed (but did not yet get to review paper chart recently rec'd from OSH), orders reviewed and revised as needed. Pt seen today in dialysis at 1710, she said she felt better, asked for 'something for my bowels, haven't had a BM in 3 days', no other complaints, alert and oriented, no confusion. Disposition - as below, appreciate nephrology and pulmonology recommendations and care for this very special pt, continue supportive care, work up in progress as outlined below. [facility] DAILY PROGRESS NOTE SERVICE DATE: 12/13/2017 SERVICE TIME: 8:26 AM INTERVAL HISTORY: Patient with no acute distress, resting comfortable in bed, on 34 L NC O2. She denies SOB/cough/sputum/fever/chills. Does c/o constipation MEDICATIONS: Current hospital medications: insulin glargine 20 Units pen (long acting) (LANTUS SOLOSTAR, BASAGLAR) 20 Units SUBCUTANEOUS AT BEDTIME insulin regular human injection (short acting) (NovoLIN R,HumuLIN R) SUBCUTANEOUS w MEALS albuterol HFA 90 mcg/actuation 2 Puff (PROVENTIL HFA, VENTOLIN HFA) 2 Puff INHALATION q 4 H PRN cloNIDine HCl 0.1 mg tab(s) (CATAPRES) 0.1 mg ORAL TID pantoprazole DR 40 mg tab(s) (PROTONIX) 40 mg ORAL DAILY enoxaparin 30 mg injection (LOVENOX) 30 mg SUBCUTANEOUS DAILY dextrose 40 % 15 g 15 g ORAL PRN glucagon 1 mg injection (GLUCAGEN) 1 mg INTRAMUSCULAR PRN dextrose 50% in water 25 mL syringe 12.5 g INTRAVENOUS PRN HOME MEDICATIONS: cholecalciferol, vitamin D3, 50,000 unit tab Take 1 tablet by mouth once every month. amiodarone (PACERONE) 200 mg tablet Take 200 mg by mouth once daily. aspirin, enteric coated (ECOTRIN) 325 mg EC tablet Take 325 mg by mouth daily with breakfast. FERREX 150 150 mg iron capsule Take 1 capsule by mouth once daily. pantoprazole DR (PROTONIX) 40 mg tablet Take 1 tablet by mouth once daily. LANTUS SOLOSTAR 100 unit/mL (3 mL) inpn INJECT 39 UNITS SUBCUTANEOUSLY TWICE DAILY NOVOLOG FLEXPEN 100 unit/mL inpn INJECT 4 TIMES DAILY DIRECTED. GLUCOSE LESS THAN 150 = 0 U; 150-199=2 U; 200-249=4 U; 250-299=6 U; 300- 349=8 U; >350=10 U gabapentin (NEURONTIN) 300 mg capsule Take 1 capsule by mouth daily at bedtime. hydrALAZINE (APRESOLINE) 100 mg tablet Take 1 tablet by mouth three times daily. cloNIDine HCl (CATAPRES) 0.1 mg tablet Take 1 tablet by mouth three times daily. metoprolol succinate ER (TOPROL XL) 25 mg 24 hr tablet Take 1 tablet by mouth once daily. furosemide (LASIX) 40 mg tablet Take 1.5 tablets by mouth once daily. atorvastatin (LIPITOR) 40 mg tablet Take 1 tablet by mouth daily at bedtime. For cholesterol. gabapentin (NEURONTIN) 100 mg capsule Take one(1) tablet two(2) times daily. COMPOUNDED PRESCRIPTION Portable oxygen Dx: Hypoxemia. R09.02. 3 LPM via NC continuous. ergocalciferol, vitamin D2, (VITAMIN D) 50,000 unit capsule Take 1 capsule by mouth once every month. albuterol HFA (VENTOLIN HFA) 90 mcg/actuation inhaler Inhale 2 Puffs as instructed every 4 hours as needed for Wheezing/Shortness of Breath. PHYSICAL EXAM: 12/12/17 1527 12/13/17 0236 12/13/17 0346 12/13/17 0700 BP: (!) 122/46 (!) 156/47 (!) 116/43 Pulse: (!) 55 70 60 (!) 57 Resp: Temp: 36.3 ?C (97.3 ?F) 36.7 ?C (98.1 ?F) 36.7 ?C (98.1 ?F) TempSrc: Oral Oral Oral SpO2: 94% 90% 92% 100% Weight: 99.5 kg (219 lb 5.7 oz) Height: 165.1 cm (5' 5) INTAKE/OUTPUT Intake/Output Summary (Last 24 hours) at 12/13/17 0826 Last data filed at 12/13/17 0800 Gross per 24 hour Intake 240 ml Output 1 ml Net 239 ml General: Awake and alert, in no distress, cooperative, left chest port present Neck: Supple without JVD or Lymphadenopathy Cardiac: RRR, S1S2 with no MGR Lungs: Bilateral scattered wheeze +, basal creps+ Abdomen: Soft non-tender, non-distended, normal bowel sounds Extremities: 2+ bilateral UE and bilateral pedal edema, no clubbing or skin discoloration. LAB DATA: Recent Labs 12/13/17 0305 12/12/17 1620 TROPI 0.016 -- WBC 9.10 8.85 RBC 2.90* 2.96* HB 8.5* 8.7* HCT 27.7* 28.7* MCV 95.5* 97.0* MCH 29.3 29.4 MCHC 30.7* 30.3* PLT 174* 168* MPV 9.9 10.3 GLUC 209* 139* BUN 59* 51* CREAT 3.70* 3.23* NA 136 135* K 4.2 4.2 CHLOR 99 98 CO2 32 32 TPROT -- 7.3 ALB -- 2.5* CA 8.6 8.6 ALKPHOS -- 72 TBILI -- 0.3 AST -- 12 ALT -- 7* MG -- 2.3 ASSESSMENT AND PLAN: Active Hospital Problems Diagnosis - JORGE (acute kidney injury) (HCC) PLAN FOR THE DAY ? JORGE on CKD needing dialysis: - P- ANCA is elevated, suspecting microscopic polyangitis - Dialysis is scheduled today 12/13/17 - Kidney Bx scheduled 12/15/17 - Plan for plasmopheresis 12/16/17 - Consulted nephrology, appreciate recs Pleural effusion with left LL consolidation - Baseline O2 requirement 3.5L - PCT WNL - Hx of recurrent PNA contributing to respiratory failure - Hx of CREST - Recent echo with RVSP 51mmHg, LVEF 65%, stage 2 diastolic dysfunction, pericardial effusion with no tamponade - Will consult pulmonology for further recs ? DM2: - Will increase her basal insulin for better blood glucose control - monitor glucose Ac/ HS. ? HTN - Hold BB 2/2 bradycardia - Hold Hydralazine 2/2 autoimmune issues - Continue Clonidine - Held lasix - patient anuric ? Mild Gastritis - Continue with PPI ? A.fib - Bradycardic - Hold BB - Will hold Amiodarone 2/2 pulm HTN - records from [place] reviewed, not on anticoagulation 2/2 anemia and hx of intra cerebral bleed ? CREST Constipation - Will add senna ? PAD - Continue ASA, Statin ? INES - CPAP at night ? Nasal pressure ulcer (POA) 2/2 cpap mask ? DVT PPX - Lovenox renal dose SIGNATURE: Jordyn Veliz MD PATIENT NAME: Michael Garcia DATE: December 13, 2017 TIME: 8:26 AM Pager: [phone] Previous Version Nidia Jones MD, MD 12/13/2017 3:55 PM Signed CONSULT: NEPHROLOGY SERVICE SERVICE DATE: 12/13/2017 SERVICE TIME: 3:43 PM REASON FOR CONSULT: I am asked to see this patient in consultation for my opinion regarding JORGE. My recommendations will be communicated by way of shared medical record. REQUESTING PHYSICIAN:Dr.Naga Cobos PRIMARY CARE PHYSICIAN: Mat Duffy MD HPI: Ms. Garcia is a 72 year old female with PMH of CKD, DM, HTN, CREST syndrome, chronic RF on 02 at home, and HPLD. Patient was admitted recently to [facility] with pneumonia and UTI. Her hospital stay was complicated with JORGE on CKD . Initially JORGE was contributed to ATN from sepsis with Afib and RVR. Patient was started on HD. So far had 5 sessions of HD. Last HD session was yesterday but was aborted early because she was told to come to [facility] to [facility] . 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 Patient has no complaints. Patient has 1st session pf plamsapharesis today. Patient seen during HD session today ROS: 12 systems review is negative except anuria. fatigue PAST MEDICAL HISTORY Diagnosis Date - Cerebellar hemorrhage, acute (HCC) 04/04/2016 - CKD (chronic kidney disease) stage 3, GFR 30-59 ml/min 04/04/2016 - CREST variant of scleroderma (HCC) 04/04/2016 - Diabetic peripheral neuropathy associated with type 2 diabetes mellitus (HCC) 01/19/2016 - Essential hypertension with goal blood pressure less than 130/85 01/19/2016 - Hyperlipidemia 01/19/2016 - Ischemic ulcer of finger with necrosis of muscle (HCC) 01/19/2016 Left 3rd finger tip - Lazy eye of left side - Legally blind 01/19/2016 - Primary osteoarthritis of right knee 01/19/2016 - Retinal hemorrhage of right eye 2007 - S/P craniotomy 04/04/2016 - Type 2 diabetes mellitus with renal manifestations ([facility]) 01/19/2016 Dr. Romeo, nephrology - Umbilical hernia without obstruction and without gangrene 01/19/2016 PAST SURGICAL HISTORY Procedure Laterality Date - ACHILLES TENDON SURGERY HX Right 1995 - BREAST BIOPSY CORE Left 2013 benign - [facility]2017 Colonoscopy w/bx [facility] - EGD W/O OR W/BRUSH/WASH 10/27/2017 EGD w/bx [facility] - LAPAROSCOPIC CHOLEYCYSTECTOMY Cholecystectomy, lap - REMOVAL OF TONSILS,<14 Y/O 1972 Tonsillectomy - REPAIR ROTATOR CUFF,ACUTE Right 1986 - REVISE MEDIAN N/CARPAL TUNNEL SURG Right 1989 - REVISE ULNAR NERVE AT ELBOW Right 1989 FAMILY HISTORY Problem Relation Age of Onset - Cancer Mother lung - Coronary Artery Disease Father 63 - Breast Cancer Sister - Diabetes Maternal Grandmother Social History Substance Use Topics - Smoking status: Never Smoker - Smokeless tobacco: Never Used - Alcohol use 1.5 oz/week 1 Cans of Beer (12oz) per week Comment: ocas MEDICATIONS: Prior to Admission Medications Prescriptions Prior to Admission: cholecalciferol, vitamin D3, 50,000 unit tab Take 1 tablet by mouth once every month. Disp: Rfl: Unknown at Unknown time amiodarone (PACERONE) 200 mg tablet Take 200 mg by mouth once daily. Disp: Rfl: 12/12/2017 at Unknown time aspirin, enteric coated (ECOTRIN) 325 mg EC tablet Take 325 mg by mouth daily with breakfast. Disp: Rfl: 12/12/2017 at Unknown time FERREX 150 150 mg iron capsule Take 1 capsule by mouth once daily. Disp: 90 capsule Rfl: 1 12/12/2017 at Unknown time pantoprazole DR (PROTONIX) 40 mg tablet Take 1 tablet by mouth once daily. Disp: 90 tablet Rfl: 3 12/12/2017 at Unknown time LANTUS SOLOSTAR 100 unit/mL (3 mL) inpn INJECT 39 UNITS SUBCUTANEOUSLY TWICE DAILY Disp: 75 mL Rfl: 3 12/12/2017 at Unknown time NOVOLOG FLEXPEN 100 unit/mL inpn INJECT 4 TIMES DAILY DIRECTED. GLUCOSE LESS THAN 150 = 0 U; 150-199=2 U; 200-249=4 U; 250-299=6 U; 300- 349=8 U; >350=10 U Disp: 45 mL Rfl: 1 12/12/2017 at Unknown time gabapentin (NEURONTIN) 300 mg capsule Take 1 capsule by mouth daily at bedtime. Disp: 90 capsule Rfl: 3 12/11/2017 at Unknown time hydrALAZINE (APRESOLINE) 100 mg tablet Take 1 tablet by mouth three times daily. Disp: 270 tablet Rfl: 1 12/12/2017 at Unknown time cloNIDine HCl (CATAPRES) 0.1 mg tablet Take 1 tablet by mouth three times daily. Disp: 270 tablet Rfl: 1 12/12/2017 at Unknown time metoprolol succinate ER (TOPROL XL) 25 mg 24 hr tablet Take 1 tablet by mouth once daily. Disp: 90 tablet Rfl: 3 12/12/2017 at Unknown time furosemide (LASIX) 40 mg tablet Take 1.5 tablets by mouth once daily. Disp: 135 tablet Rfl: 1 12/12/2017 at Unknown time atorvastatin (LIPITOR) 40 mg tablet Take 1 tablet by mouth daily at bedtime. For cholesterol. Disp: 90 tablet Rfl: 3 12/11/2017 at Unknown time gabapentin (NEURONTIN) 100 mg capsule Take one(1) tablet two(2) times daily. Disp: 60 capsule Rfl: 0 COMPOUNDED PRESCRIPTION Portable oxygen Dx: Hypoxemia. R09.02. 3 LPM via NC continuous. Disp: 1 Each Rfl: 0 ergocalciferol, vitamin D2, (VITAMIN D) 50,000 unit capsule Take 1 capsule by mouth once every month. Disp: 3 capsule Rfl: 3 albuterol HFA (VENTOLIN HFA) 90 mcg/actuation inhaler Inhale 2 Puffs as instructed every 4 hours as needed for Wheezing/Shortness of Breath. Disp: 1 Inhaler Rfl: 0 Current hospital medications: insulin glargine 20 Units pen (long acting) (LANTUS SOLOSTAR, BASAGLAR) 20 Units SUBCUTANEOUS AT BEDTIME insulin regular human injection (short acting) (NovoLIN R,HumuLIN R) SUBCUTANEOUS w MEALS atorvastatin 40 mg tab(s) (LIPITOR) 40 mg ORAL AT BEDTIME epoetin osvaldo 3,000 Units injection (PROCRIT) 3,000 Units INTRAVENOUS 3 Times weekly with dialysis heparin 1,000 unit/mL 3,800 Units injection 3,800 Units INTRALUMINAL 3 Times weekly with dialysis senna-docusate 8.6-50 mg 1 tablet (SENNA-S) 1 tablet ORAL BID PRN albuterol HFA 90 mcg/actuation 2 Puff (PROVENTIL HFA, VENTOLIN HFA) 2 Puff INHALATION q 4 H PRN cloNIDine HCl 0.1 mg tab(s) (CATAPRES) 0.1 mg ORAL TID pantoprazole DR 40 mg tab(s) (PROTONIX) 40 mg ORAL DAILY enoxaparin 30 mg injection (LOVENOX) 30 mg SUBCUTANEOUS DAILY dextrose 40 % 15 g 15 g ORAL PRN glucagon 1 mg injection (GLUCAGEN) 1 mg INTRAMUSCULAR PRN dextrose 50% in water 25 mL syringe 12.5 g INTRAVENOUS PRN ALLERGIES No Known Allergies Objective PHYSICAL EXAM: BP (!) 128/49 Pulse 65 Temp 36.7 ?C (98.1 ?F) (Oral) Resp 18 Ht 165.1 cm (5' 5) Wt 99.5 kg (219 lb 5.7 oz) SpO2 93% BMI 36.5 kg/m2 Intake/Output Summary (Last 24 hours) at 12/13/17 1543 Last data filed at 12/13/17 0800 Gross per 24 hour Intake 240 ml Output 1 ml Net 239 ml Constitutional: No acute distress, Responsive, Normal habitus and Well-nourished Eyes: Conjunctiva clear and PERRL Ear, Nose, and Throat: Hearing normal, Lips normal and Dentition normal Neck: Trachea midline No jugular venous distension Cardiovascular: Regular rate and ryhthm, normal S1 and S2, no murmurs, rubs, or gallops No peripheral edema Respiratory: Normal respiratory effort. Lungs clear bilaterally. Abdomen: Soft, non-tender, non-distended. Normal bowel sounds. No hepatosplenomegaly. Musculoskeletal: No clubbing or cyanosis of digits. and Normocephalic. Neurologic: CN II-XII intact and Normal sensation Psychiatric: Alert and oriented x self, place, time, and setting Normal mood/affect DATA: Diagnostic tests reviewed for today's visit: Most recent labs Recent Labs 12/13/17 0305 12/12/17 1620 NA 136 135* K 4.2 4.2 CHLOR 99 98 CO2 32 32 BUN 59* 51* CREAT 3.70* 3.23* GLUC 209* 139* ANION 9 9 CA 8.6 8.6 P -- 5.0* MG -- 2.3 Recent Labs 12/13/17 0305 12/12/17 1620 WBC 9.10 8.85 HB 8.5* 8.7* HCT 27.7* 28.7* PLT 174* 168* Assessment/Plan 1- JORGE on CKD. 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 HD MWF Seen during HD session today: BQ 350, DQ 600 UF 2L. Next HD session 12/15 Patient received the 1st session pf plasmapheresis . Will continue total of 5 sessions every other day Kidney biopsy on Friday Patient will eventually needs Rituxan and prednisone if Kidney Bx is + for P-ANCA 2-Anemia: continue TEZ with HD session 3- HTN: BP is well controlled. Continue the same meds 4- DM: glycemic control is as per the primary service Will continue to follow Nidia Jones MD [phone] Manju Quiroga, RN, RN 12/13/2017 8:08 PM Signed HEMODIALYSIS TX COMPLETED PAULA WELL STABLE -2000 ML OFF SEE FLOW SHEET FOR DETAILS hBavya Forrest, RN, RN 12/13/2017 9:48 PM Signed Nursing Progress Note Patient Name: Michael Garcia Patient Location: [id number]/[id number]* Daily Note: Spoke with [facility] regarding patient now AFib on tele, HR ranging between 100's to 140's. States they will be up to see the patient. This note was completed by: Bhavya Forrest, ELI Lim MD 12/13/2017 11:02 PM Signed Night team progress note Was paged By nurse regarding tele showing A-fib. STAT EKG ordered. At bedside patient denies any symptoms, palpitations, chest pain, SOB, dizziness. Ready to sleep waiting for BiPAP to be placed, needs some nasal spray to sooth the burning in the nose. Patient has been off metoprolol and amiodarone since admission. States at [facility] has been having some irregular heart rates, not sure if A-fib. Per previous records from [facility] may have Hx of PAF in the past as well. On Tele HR in 120-130. Occasional PVC's EKG: Irregular, cons with A-fib On exam: NAD, in the bed, CV: Irregular tachycardia Resp: not complete resp effort, CTA Pulse: intact b/l Neuro: AOx3 Assessment/Plan: -Per records, metoprolol was on hold, will order STAT IV metoprolol 5mg now Restart po Metoprolol 12,5 mg bid with holding parameters -check Mg, iCa, Phos now due to 5 beats of Vtach while got up go to bathroom. Patinet is asymptomatic. Start on BiPAP LOYDA with Naps and night sleep. Luisa Lim MD PGY-2, IM Bhavya Forrest RN, RN 12/14/2017 4:27 AM Signed Nursing Progress Note Patient Name: Michael Garcia Patient Location: [id number]/[id number]* Daily Note: Patient was found sleeping without BiPAP mask on, was found to be 62% on room air. BiPAP was placed back on and pulled up in bed. Oxygen back to 94% on BiPAP, instructed to not remove mask when sleeping. Patient agreeable, will continue to monitor. This note was completed by: ELI Burns CNP, TOP LOADER 12/14/2017 11:02 AM Attested Addendum Attestation signed by Echo Fernandes at 12/15/2017 9:40 AM [facility] STAFF PHYSICIAN NOTE OF PERSONAL INVOLVEMENT IN CARE I have reviewed the consult note obtained and documented by the nurse practitioner and I personally participated in the martinez components. I have discussed the case and management of the patient's care. The following comments revise or confirm relevant martinez components of the note. Interval history: 72yr old female with recently diagnosed ANCA vasculitis admitted for Plasmapheresis. Patient c/o severe shortness of breath even on lying down. Her nose is congested. Deneis any cough fever or chills. Denies any chest pain Exam: Patient is alert, oriented S1, S2. Regular Breath sounds diminished at bases. No wheezing or rhonchi Good bowel sounds, soft, nontender, nondistended. 3-4+ pedal edema Data: Reviewed as detailed below. IMPRESSION: ASSESSMENT/PLAN: 1. Acute on chronic congestive heart failure, unspecified heart failure type (HCC) - ICD9: 428.0, ICD10: I50.9 2. Class 2 obesity with body mass index (BMI) of 36.0 to 36.9 in adult, unspecified obesity type, unspecified whether serious comorbidity present - ICD9: 278.00, V85.36, ICD10: E66.9, Z68.36 3. INES (obstructive sleep apnea) - ICD9: 327.23, ICD10: G47.33 4. Pleural effusion - ICD9: 511.9, ICD10: J90 5. JORGE (acute kidney injury) (HCC) - ICD9: 584.9, ICD10: N17.9 6. Acute on chronic respiratory failure with hypoxia (HCC) - ICD9: 518.84, 799.02, ICD10: J96.21 7. Acute on chronic diastolic congestive heart failure (HCC) - ICD9: 428.33, 428.0, ICD10: I50.33 8. Pulmonary arterial hypertension - ICD9: 416.8, ICD10: I27.21 Plan: Is on plasmapheresis for ANCA vasculitis Will need diagnostic ultrasound and possible thoracentesis Oxygen supplementation Recommend aggressive fluid removal during dialysis Will need work up for pulmonary hypertension when stable Pulmonary will follow SIGNATURE: Echo Fernandes MD [facility] DATE of SERVICE: december 14, 2017 TIME of SERVICE: 9:34 AM Pulmonary Consult Note SERVICE DATE: 12/14/2017 SERVICE TIME: 8:35 AM ? REASON FOR ADMISSION: Direct admission 11/07 elevated ANCA REASON FOR CONSULT: Pleural effusion, pulmonary hypertension HISTORY OF PRESENT ILLNESS: This is a very pleasant 72 year old female with a past medical history of CREST syndrome, INES (compliant with CPAP) and chronic hypoxic respiratory failure (3.5L at home). Additionally she states that she has been treated for pneumonia twice in the last 6 months, once in July and once just recently at [place] (admitted 11/27 - 12/08 and treated for suspected LLL pneumonia AND a UTI (Klebsiella) with Levaquin and Zosyn, as well as an JORGE and was subsequently started on PRN dialysis). Of note, during that admission she developed A-fib with RVR and was subsequently started on amiodarone AND metoprolol (no OAC). During that admission an ANCA was drawn which apparently came back elevated and nephrology then wanted her admitted here for further work up and management. Her only current complaints are of PND, sinus congestion, wheezing and shortness of breath (greater with exertion). She denies any difficulty swallowing. She also states that since being here, she feels as though her shortness of breath as improved. She denies any cough, phlegm, fevers, chills, edema or recent weight changes. A full review of systems was obtained and is outlined in detail below. REVIEW OF SYSTEMS: GENERAL: Negative for fevers, malaise, chills, sweats, lethargy, change in appetite or weight HEENT: Negative for headaches, hearing/vision changes, nasal bleeding or rhinorrhea NECK: Negative for lumps, goiter, pain and significant neck swelling NEURO: No history of headaches, syncope, paralysis, seizures or tremors RESPIRATORY: Negative for cough or hemoptysis CARDIOVASCULAR: Negative for chest pain, leg swelling, or palpitations GI: No nausea, vomiting, diarrhea, heartburn or reflux symptoms : No history of dysuria, frequency or incontinence SKIN: Negative for lesions, rash, and itching MUSCULOSKELETAL: Negative for joint pain or swelling, back pain or muscle pain ? ? PAST MEDICAL HISTORY PAST MEDICAL HISTORY Diagnosis Date - Cerebellar hemorrhage, acute ([facility]) 04/04/2016 - CKD (chronic kidney disease) stage 3, GFR 30-59 ml/min 04/04/2016 - CREST variant of scleroderma ([facility]) 04/04/2016 - Diabetic peripheral neuropathy associated with type 2 diabetes mellitus ([facility]) 01/19/2016 - Essential hypertension with goal blood pressure less than 130/85 01/19/2016 - Hyperlipidemia 01/19/2016 - Ischemic ulcer of finger with necrosis of muscle ([facility]) 01/19/2016 Left 3rd finger tip - Lazy eye of left side 1949s - Legally blind 01/19/2016 - Primary osteoarthritis of right knee 01/19/2016 - Retinal hemorrhage of right eye 2007 - S/P craniotomy 04/04/2016 - Type 2 diabetes mellitus with renal manifestations ([facility]) 01/19/2016 Dr. Romeo, nephrology - Umbilical hernia without obstruction and without gangrene 01/19/2016 PAST SURGICAL HISORY PAST SURGICAL HISTORY Procedure Laterality Date - ACHILLES TENDON SURGERY HX Right 1995 - BREAST BIOPSY CORE Left 2013 benign - [facility]2017 Colonoscopy w/bx [facility] - EGD W/O OR W/BRUSH/WASH 10/27/2017 EGD w/bx [facility] - LAPAROSCOPIC CHOLEYCYSTECTOMY Cholecystectomy, lap - REMOVAL OF TONSILS,<12 Y/O 1975 Tonsillectomy - REPAIR ROTATOR CUFF,ACUTE Right 1986 - REVISE MEDIAN N/CARPAL TUNNEL SURG Right 1989 - REVISE ULNAR NERVE AT ELBOW Right 1989 PAST FAMILY HISTORY FAMILY HISTORY Problem Relation Age of Onset - Cancer Mother lung - Coronary Artery Disease Father 63 - Breast Cancer Sister - Diabetes Maternal Grandmother SOCIAL HISTORY Social History Substance Use Topics - Smoking status: Never Smoker - Smokeless tobacco: Never Used - Alcohol use 1.5 oz/week 1 Cans of Beer (12oz) per week Comment: ocas *Patient is a life long non-smoker. ? ALLERGIES ALLERGIES No Known Allergies HOME MEDICATIONS: Prescriptions Prior to Admission: cholecalciferol, vitamin D3, 50,000 unit tab Take 1 tablet by mouth once every month. Disp: Rfl: Unknown at Unknown time amiodarone (PACERONE) 200 mg tablet Take 200 mg by mouth once daily. Disp: Rfl: 12/12/2017 at Unknown time aspirin, enteric coated (ECOTRIN) 325 mg EC tablet Take 325 mg by mouth daily with breakfast. Disp: Rfl: 12/12/2017 at Unknown time FERREX 150 150 mg iron capsule Take 1 capsule by mouth once daily. Disp: 90 capsule Rfl: 1 12/12/2017 at Unknown time pantoprazole DR (PROTONIX) 40 mg tablet Take 1 tablet by mouth once daily. Disp: 90 tablet Rfl: 3 12/12/2017 at Unknown time LANTUS SOLOSTAR 100 unit/mL (3 mL) inpn INJECT 39 UNITS SUBCUTANEOUSLY TWICE DAILY Disp: 75 mL Rfl: 3 12/12/2017 at Unknown time NOVOLOG FLEXPEN 100 unit/mL inpn INJECT 4 TIMES DAILY DIRECTED. GLUCOSE LESS THAN 150 = 0 U; 150-199=2 U; 200-249=4 U; 250-299=6 U; 300- 349=8 U; >350=10 U Disp: 45 mL Rfl: 1 12/12/2017 at Unknown time gabapentin (NEURONTIN) 300 mg capsule Take 1 capsule by mouth daily at bedtime. Disp: 90 capsule Rfl: 3 12/11/2017 at Unknown time hydrALAZINE (APRESOLINE) 100 mg tablet Take 1 tablet by mouth three times daily. Disp: 270 tablet Rfl: 1 12/12/2017 at Unknown time cloNIDine HCl (CATAPRES) 0.1 mg tablet Take 1 tablet by mouth three times daily. Disp: 270 tablet Rfl: 1 12/12/2017 at Unknown time metoprolol succinate ER (TOPROL XL) 25 mg 24 hr tablet Take 1 tablet by mouth once daily. Disp: 90 tablet Rfl: 3 12/12/2017 at Unknown time furosemide (LASIX) 40 mg tablet Take 1.5 tablets by mouth once daily. Disp: 135 tablet Rfl: 1 12/12/2017 at Unknown time atorvastatin (LIPITOR) 40 mg tablet Take 1 tablet by mouth daily at bedtime. For cholesterol. Disp: 90 tablet Rfl: 3 12/11/2017 at Unknown time gabapentin (NEURONTIN) 100 mg capsule Take one(1) tablet two(2) times daily. Disp: 60 capsule Rfl: 0 COMPOUNDED PRESCRIPTION Portable oxygen Dx: Hypoxemia. R09.02. 3 LPM via NC continuous. Disp: 1 Each Rfl: 0 ergocalciferol, vitamin D2, (VITAMIN D) 50,000 unit capsule Take 1 capsule by mouth once every month. Disp: 3 capsule Rfl: 3 albuterol HFA (VENTOLIN HFA) 90 mcg/actuation inhaler Inhale 2 Puffs as instructed every 4 hours as needed for Wheezing/Shortness of Breath. Disp: 1 Inhaler Rfl: 0 HOSPITAL MEDICATIONS: Current Facility-Administered Medications: insulin regular human injection (short acting) (NovoLIN R,HumuLIN R) SUBCUTANEOUS w MEALS Roulan (Res) [place] 1 Units at 12/14/17 08 atorvastatin 40 mg tab(s) (LIPITOR) 40 mg ORAL AT BEDTIME [place] (Res) [place] 40 mg at 12/13/172056 epoetin osvaldo 3,000 Units injection (PROCRIT) 3,000 Units INTRAVENOUS 3 Times weekly with dialysis Nidia Jones MD 3,000 Units at 12/13/17 1800 heparin 1,000 unit/mL 3,800 Units injection 3,800 Units INTRALUMINAL 3 Times weekly with mckayla Jones MD 3,800 Units at 12/13/17 184 polyethylene glycol 3350 17 g packet (MIRALAX, GLYCOLAX) 17 g ORAL DAILY Bianca Gusman Lashell 17 g at 12/14/17 0824 senna-docusate 8.6-50 mg 1 tablet (SENNA-S) 1 tablet ORAL AT BEDTIME Bianca Aaylauso 1 tablet at 12/13/172056 insulin glargine 39 Units pen (long acting) (LANTUS SOLOSTAR, BASAGLAR) 39 Units SUBCUTANEOUS AT BEDTIME [place]oulan (Res) [place] 39 Units at 12/13/172056 metoprolol tartrate (short acting) 12.5 mg tab(s) (LOPRESSOR) 12.5 mg ORAL q 12 H Luisa (Res) Shark[place]unyan 12.5 mg at 12/14/17 0822 sodium chloride-aloe vera topical nasal gel (AYR GEL w/ALOE) INTRANASAL PRN Luisa (Res) [place] 1 application at 12/13/17 2315 albuterol HFA 90 mcg/actuation 2 Puff (PROVENTIL HFA, VENTOLIN HFA) 2 Puff INHALATION q 4 H PRN Bianca Lobo cloNIDine HCl 0.1 mg tab(s) (CATAPRES) 0.1 mg ORAL TID Noman (Res) Vura 0.1 mg at 12/13/[address] 40 mg tab(s) (PROTONIX) 40 mg ORAL DAILY Noman (Res) Vura 40 mg at 12/14/17 0823 enoxaparin 30 mg injection (LOVENOX) 30 mg SUBCUTANEOUS DAILY Noman (Res) Vura 30 mg at 12/13/172056 dextrose 40 % 15 g 15 g ORAL PRN Noman (Res) Vura Or glucagon 1 mg injection (GLUCAGEN) 1 mg INTRAMUSCULAR PRN Noman (Res) Vura Or dextrose 50% in water 25 mL syringe 12.5 g INTRAVENOUS PRN Noman (Res) Vura ? LABS 12/13 Procalcitonin 0.29 BMP: Glucose (mg/dL) Date Value 12/13/2017 209 Potassium (mEq/L) Date Value 12/13/2017 4.2 Sodium (mEq/L) Date Value 12/13/2017 136 Chloride (mEq/L) Date Value 12/13/2017 99 CO2 (mEq/L) Date Value 12/13/2017 32 Creatinine (mg/dL) Date Value 12/13/2017 3.70 BUN (mg/dL) Date Value 12/13/2017 59 Anion Gap (no units) Date Value 12/13/2017 9 Calcium (mg/dL) Date Value 12/13/2017 8.6 CBC: Hemoglobin (g/dL) Date Value 08/09/2017 9.3 06/08/2016 11.9 HGB (g/dL) Date Value 12/13/2017 8.5 12/12/2017 8.7 04/02/2016 9.4 Hematocrit (%) Date Value 12/13/2017 27.7 12/12/2017 28.7 08/09/2017 32.4 WBC Date Value 12/13/2017 9.10 thou/cmm 12/12/2017 8.85 thou/cmm 08/09/2017 6.50 k/uL No recent new micro found in [facility] RADIOLOGY FILMS: CXR 12/13/17: 1. Lines, Tubes, and Devices: ?The tip of the left internal jugular and dual-lumen ?catheter is at the cephalad portion of the right atrium 2. Lungs and Pleura: ?Limited inspiratory effort. ?Groundglass density in both lungs that has developed since the previous examination. ?Consolidation in the retrocardiac aspect of the left lower lobe. ?Small right pleural effusion. Probable small left pleural effusion. 3. Cardiomediastinal silhouette: ?The cardiac silhouette is not well delineated secondary to the pulmonary process in the left chest ? Most recent Echocardiogram 11/27/17: LVEF: 65% Stage II diastolic dysfunction RVSP is estimated to be 51% No PSGs / PFTs found in [facility] ? VITALS: BP 119/65 Pulse 64 Temp 36.8 ?C (98.2 ?F) (Oral) Resp 20 Ht 165.1 cm (5' 5) Wt 99.5 kg (219 lb 5.7 oz) SpO2 99% BMI 36.5 kg/m2 PHYSICAL EXAM: GENERAL: AAOx3, pleasant, obese, resting in bed in NAD. at bedside. NEURO: CN II-XII intact, speech clear HEENT: NCAT, EOMI, no lymphadenopathy appreciated RESPIRATORY: CTAB A AND P with diminished BS at bases. Even/unlabored at rest. No wheezing, accessory muscle use, pursed lip breathing or conversational dysnea. Patient is on 4 L NC. CARDIOVASCULAR: Normal S1S2, RRR, no murmur, rub, or gallop. No edema. GI: Soft, nondistended, nontender, bowel sounds present x4 EXTREMITIES: no clubbing or cyanosis. MAEx4 SKIN: warm, dry, intact, no rash ? ASSESSMENT AND PLAN: 1. Acute on chronic hypoxic / hypercapnic respiratory failure - multifactorial - Currently on 4L. Wean to baseline home O2 of 3.5 L as able, keep SaO2 > 92%. See plan below. Continue with PRN albuterol. Add IS Q1H. Check ambulatory pulse oximetry prior to discharge. 2. Bilateral infiltrates vs pulmonary edema (L > R) with suspected moderate to large (and possibly loculated) left pleural effusion - etiology unclear, though doubt infectious given lack of clinical signs or symptoms of pneumonia. Continue to monitor off antibiotics for now. Check BNP. Will need diagnostic left thoracentesis with follow up CXR afterwards. May need to consider CT chest if bilateral ASD persists. 3. URI - suspect viral - will add Flonase and Claritin. C/w PRN albuterol as above. 4. Moderate pulmonary hypertension with RVSP of 51 - likely WHO group II / III 2/2 #5 AND #6 - no indication for PAH directed therapies at this time. OP follow up with Dr. Valencia in [place]. 5. Suspected Acute on chronic diastolic heart failure with EF 65% - Continue with BB. Keep outputs > inputs, daily weights, CHF diet. May need to be more aggressive with volume management/removal via HD. 6. INES - CPAP complaint QHS / all sleep 7. Obesity with BMI of 36.50 - weight loss strongly encouraged. 8. JORGE on CKD - suspect 2/2 #9 / acute vasculitis - Continue with plasmapheresis / HD per nephrology. Awaiting renal biopsy 12/15. May need to begin treatment with Rituxan AND steroids if biopsy is positive. 9. Questionable history of CREST syndrome 10. Recent LLL Pneumonia - treated at [place] with Zosyn AND Levaquin 11. MMP - per primary 12. Further evaluation with attending to follow. SIGNATURE: Umu Rios CNP PATIENT NAME: Michael Garcia DATE: December 14, 2017 TIME: 8:35 AM PAGER/CONTACT #: [id number] ? Attestation signed by Echo Fernandes at 12/14/2017 10:16 AM to a previous version PULMONARY PROGRESS NOTE [facility] SERVICE DATE: December 14, 2017 SERVICE TIME: 10:04 AM Subjective 72yr old female admitted with JORGE/CKD and ANCA vasculitis. Started on plasmapheresis. Patient c/o significant shortness of breath and stuffy nose. Denies any wheezing, cough, phlegm, chest pain, fevers or chills. OBJECTIVE Current Facility-Administered Medications: fluticasone 50 mcg/actuation 1 [place] (FLONASE) 1 [place] EACH NOSTRIL DAILY Umu Rios CNP loratadine 10 mg tab(s) (CLARITIN) 10 mg ORAL DAILY Umu Rios CNP insulin regular human injection (short acting) (NovoLIN R,HumuLIN R) SUBCUTANEOUS w MEALS Roulan (Res) Abu Hweij 1 Units at 12/14/17 0823 atorvastatin 40 mg tab(s) (LIPITOR) 40 mg ORAL AT BEDTIME Roulan (Res) Abu Hweij 40 mg at 12/13/17 205 epoetin osvaldo 3,000 Units injection (PROCRIT) 3,000 Units INTRAVENOUS 3 Times weekly with dialysis Nidia Jones MD 3,000 Units at 12/13/17 1800 heparin 1,000 unit/mL 3,800 Units injection 3,800 Units INTRALUMINAL 3 Times weekly with dialysis Nidia Jones MD 3,800 Units at 12/13/17 1845 polyethylene glycol 3350 17 g packet (MIRALAX, GLYCOLAX) 17 g ORAL DAILY Bianca Naseem Lobo 17 g at 12/14/17 0824 senna-docusate 8.6-50 mg 1 tablet (SENNA-S) 1 tablet ORAL AT BEDTIME Bianca Lee Lashell 1 tablet at 12/13/172056 insulin glargine 39 Units pen (long acting) (LANTUS SOLOSTAR, BASAGLAR) 39 Units SUBCUTANEOUS AT BEDTIME Roulan (Res) Abu Hweij 39 Units at 12/13/172056 metoprolol tartrate (short acting) 12.5 mg tab(s) (LOPRESSOR) 12.5 mg ORAL q 12 H Luisa (Res) Sharkhatunyan 12.5 mg at 12/14/17 0822 sodium chloride-aloe vera topical nasal gel (AYR GEL w/ALOE) INTRANASAL PRN Luisa (Res) Sharkhatunyan 1 application at 12/13/17 2315 albuterol HFA 90 mcg/actuation 2 Puff (PROVENTIL HFA, VENTOLIN HFA) 2 Puff INHALATION q 4 H PRN Bianca Gusman Lashell cloNIDine HCl 0.1 mg tab(s) (CATAPRES) 0.1 mg ORAL TID Noman (Res) Vura 0.1 mg at 12/13/[address] 40 mg tab(s) (PROTONIX) 40 mg ORAL DAILY Noman (Res) Vura 40 mg at 12/14/1723 enoxaparin 30 mg injection (LOVENOX) 30 mg SUBCUTANEOUS DAILY Noman (Res) Vura 30 mg at 12/13/172056 dextrose 40 % 15 g 15 g ORAL PRN Noman (Res) Vura Or glucagon 1 mg injection (GLUCAGEN) 1 mg INTRAMUSCULAR PRN Noman (Res) Vura Or dextrose 50% in water 25 mL syringe 12.5 g INTRAVENOUS PRN Noman (Res) Vura INTAKE AND OUTPUT Intake/Output Summary (Last 24 hours) at 12/14/17 1004 Last data filed at 12/13/172056 Gross per 24 hour Intake 700 ml Output 0 ml Net 700 ml New Radiology Films: Chest xray: 12/13: IMPRESSION: PULMONARY VENOUS CONGESTION WITH INTERSTITIAL EDEMA. ?SMALL BILATERAL PLEURAL EFFUSIONS. ?LEFT LOWER LOBE CONSOLIDATION ? New Micro: no cultures sent New Labs: ABG: BMP: Glucose (mg/dL) Date Value 12/13/2017 209 Potassium (mEq/L) Date Value 12/13/2017 4.2 Sodium (mEq/L) Date Value 12/13/2017 136 Chloride (mEq/L) Date Value 12/13/2017 99 CO2 (mEq/L) Date Value 12/13/2017 32 Creatinine (mg/dL) Date Value 12/13/2017 3.70 BUN (mg/dL) Date Value 12/13/2017 59 Anion Gap (no units) Date Value 12/13/2017 9 Calcium (mg/dL) Date Value 12/13/2017 8.6 CBC: Hemoglobin (g/dL) Date Value 08/09/2017 9.3 06/08/2016 11.9 HGB (g/dL) Date Value 12/13/2017 8.5 12/12/2017 8.7 04/02/2016 9.4 Hematocrit (%) Date Value 12/13/2017 27.7 12/12/2017 28.7 08/09/2017 32.4 WBC Date Value 12/13/2017 9.10 thou/cmm 12/12/2017 8.85 thou/cmm 08/09/2017 6.50 k/uL Vital Signs 12/14/17 0410 12/14/17 0415 12/14/17 0510 12/14/17 0751 BP: 113/51 119/65 Pulse: (!) 58 64 Resp: 20 20 Temp: 36.6 ?C (97.9 ?F) 36.8 ?C (98.2 ?F) TempSrc: Oral Oral SpO2: (!) 62% 94% 100% 99% Weight: Height: PHYSICAL EXAM: GENERAL: AAOx3, pleasant, resting in bed, NAD RESPIRATORY: CTAB, even/unlabored respirations at rest. No wheezing, accessory muscle use, pursed lip breathing or conversational dyspnea. Patient is on 4l nasal canula. Has diminished BS at bases CARDIOVASCULAR: Normal S1S2, RRR GI: Abdomen soft, nondistended, nontender, bowel sounds present x4 EXTREMITIES: No clubbing, cyanosis, edema. Moves all extremities equal x 4 ? Assessment and Plan: ASSESSMENT/PLAN: 1. Acute on chronic hypoxic respiratory failure 2. Bilateral infiltrates vs pulmonary edema (L > R) with suspected moderate to large (and possibly loculated) left pleural effusion 3. INES (obstructive sleep apnea) - ICD9: 327.23, ICD10: G47.33 4. Pleural effusion - ICD9: 511.9, ICD10: J90 5. JORGE (acute kidney injury) (HCC) - ICD9: 584.9, ICD10: N17.9 6. ANCA vasculitis on plasmapharesis 7. Pulmonary hypertension 8. Suspected Acute on chronic diastolic heart failure with EF 65% 9. Class 2 obesity with body mass index (BMI) of 36.0 to 36.9 in adult, unspecified obesity type, unspecified whether serious comorbidity present - ICD9: 278.00, V85.36, ICD10: E66.9, Z68.36 Plan: -On 4l nasal canula. Hypoxia likely secondary to fluid overload and atelectasis. Wean oxygen as tolerated. Incentive spirometry Scheduled for diagnostic ultrasound and possible thoracentesis. Less likely pneumonia. Monitor off antibioitcs Will need rpt Echo afer correction of volume status Currently on plasmapheresis for ANCA vasculitis. Scheduled for renal biopsy on friday Recommend aggressive volume removal thru dialysis Pulmonary HTN multifactorial. Need to optimize treatment for underlying problems. pulmonary will follow SIGNATURE: Echo Fernandes MD,[facility] PATIENT NAME: Michael Garcia DATE: December 14, 2017 TIME: 10:04 AM PAGER/CONTACT #: [id number] Previous Version Jordyn Veliz MD 12/14/2017 12:54 PM Attested Attestation signed by Bianca Lobo at 12/14/2017 7:42 PM Discussed in detail with team, chart reviewed, orders reviewed. Events overnight noted. Pt seen today at 1712, sitting up in chair, had no complaints at that time. Disposition - as below, appreciate both nephrology and pulmonary recommendations for this very special patient. Bruna Cary DAILY PROGRESS NOTE SERVICE DATE: 12/14/2017 SERVICE TIME: 8:26 AM INTERVAL HISTORY: Patient with Afib with RVR overnight, resumed metoprolol (held on admit due to bradycardia). Patient resting comfortable in bed. Denies CP. Endorses SOB, ongoing for months. Denies fever/chills. MEDICATIONS: Current hospital medications: insulin regular human injection (short acting) (NovoLIN R,HumuLIN R) SUBCUTANEOUS w MEALS atorvastatin 40 mg tab(s) (LIPITOR) 40 mg ORAL AT BEDTIME epoetin osvaldo 3,000 Units injection (PROCRIT) 3,000 Units INTRAVENOUS 3 Times weekly with dialysis heparin 1,000 unit/mL 3,800 Units injection 3,800 Units INTRALUMINAL 3 Times weekly with dialysis polyethylene glycol 3350 17 g packet (MIRALAX, GLYCOLAX) 17 g ORAL DAILY senna-docusate 8.6-50 mg 1 tablet (SENNA-S) 1 tablet ORAL AT BEDTIME insulin glargine 39 Units pen (long acting) (LANTUS SOLOSTAR, BASAGLAR) 39 Units SUBCUTANEOUS AT BEDTIME metoprolol tartrate (short acting) 12.5 mg tab(s) (LOPRESSOR) 12.5 mg ORAL q 12 H sodium chloride-aloe vera topical nasal gel (AYR GEL w/ALOE) INTRANASAL PRN albuterol HFA 90 mcg/actuation 2 Puff (PROVENTIL HFA, VENTOLIN HFA) 2 Puff INHALATION q 4 H PRN cloNIDine HCl 0.1 mg tab(s) (CATAPRES) 0.1 mg ORAL TID pantoprazole DR 40 mg tab(s) (PROTONIX) 40 mg ORAL DAILY enoxaparin 30 mg injection (LOVENOX) 30 mg SUBCUTANEOUS DAILY dextrose 40 % 15 g 15 g ORAL PRN glucagon 1 mg injection (GLUCAGEN) 1 mg INTRAMUSCULAR PRN dextrose 50% in water 25 mL syringe 12.5 g INTRAVENOUS PRN HOME MEDICATIONS: cholecalciferol, vitamin D3, 50,000 unit tab Take 1 tablet by mouth once every month. amiodarone (PACERONE) 200 mg tablet Take 200 mg by mouth once daily. aspirin, enteric coated (ECOTRIN) 325 mg EC tablet Take 325 mg by mouth daily with breakfast. FERREX 150 150 mg iron capsule Take 1 capsule by mouth once daily. pantoprazole DR (PROTONIX) 40 mg tablet Take 1 tablet by mouth once daily. LANTUS SOLOSTAR 100 unit/mL (3 mL) inpn INJECT 39 UNITS SUBCUTANEOUSLY TWICE DAILY NOVOLOG FLEXPEN 100 unit/mL inpn INJECT 4 TIMES DAILY DIRECTED. GLUCOSE LESS THAN 150 = 0 U; 150-199=2 U; 200-249=4 U; 250-299=6 U; 300- 349=8 U; >350=10 U gabapentin (NEURONTIN) 300 mg capsule Take 1 capsule by mouth daily at bedtime. hydrALAZINE (APRESOLINE) 100 mg tablet Take 1 tablet by mouth three times daily. cloNIDine HCl (CATAPRES) 0.1 mg tablet Take 1 tablet by mouth three times daily. metoprolol succinate ER (TOPROL XL) 25 mg 24 hr tablet Take 1 tablet by mouth once daily. furosemide (LASIX) 40 mg tablet Take 1.5 tablets by mouth once daily. atorvastatin (LIPITOR) 40 mg tablet Take 1 tablet by mouth daily at bedtime. For cholesterol. gabapentin (NEURONTIN) 100 mg capsule Take one(1) tablet two(2) times daily. COMPOUNDED PRESCRIPTION Portable oxygen Dx: Hypoxemia. R09.02. 3 LPM via NC continuous. ergocalciferol, vitamin D2, (VITAMIN D) 50,000 unit capsule Take 1 capsule by mouth once every month. albuterol HFA (VENTOLIN HFA) 90 mcg/actuation inhaler Inhale 2 Puffs as instructed every 4 hours as needed for Wheezing/Shortness of Breath. PHYSICAL EXAM: 12/14/17 0410 12/14/17 0415 12/14/17 0510 12/14/17 0751 BP: 113/51 119/65 Pulse: (!) 58 64 Resp: 20 20 Temp: 36.6 ?C (97.9 ?F) 36.8 ?C (98.2 ?F) TempSrc: Oral Oral SpO2: (!) 62% 94% 100% 99% Weight: Height: INTAKE/OUTPUT Intake/Output Summary (Last 24 hours) at 12/14/17 0900 Last data filed at 12/13/172056 Gross per 24 hour Intake 700 ml Output 0 ml Net 700 ml General: Awake and alert, in no distress, cooperative, left chest port present Neck: Supple without JVD or Lymphadenopathy Cardiac: RRR, S1S2 with no MGR Lungs: Bilateral scattered wheeze +, mild basal creps+(improved from yesterday) Abdomen: Soft non-tender, non-distended, normal bowel sounds Extremities: 2+ bilateral UE and bilateral pedal edema, no clubbing or skin discoloration. LAB DATA: Recent Labs 12/13/17 0305 12/12/17 1620 TROPI 0.016 -- WBC 9.10 8.85 RBC 2.90* 2.96* HB 8.5* 8.7* HCT 27.7* 28.7* MCV 95.5* 97.0* MCH 29.3 29.4 MCHC 30.7* 30.3* PLT 174* 168* MPV 9.9 10.3 GLUC 209* 139* BUN 59* 51* CREAT 3.70* 3.23* NA 136 135* K 4.2 4.2 CHLOR 99 98 CO2 32 32 TPROT -- 7.3 ALB -- 2.5* CA 8.6 8.6 ALKPHOS -- 72 TBILI -- 0.3 AST -- 12 ALT -- 7* MG -- 2.3 ASSESSMENT AND PLAN: Active Hospital Problems Diagnosis - JORGE (acute kidney injury) (HCC) PLAN FOR THE DAY ? Plan per nephrology is to c/w MWF HD, alternate day plasmapheresis for 5 sessions and to obtain renal biopsy on 12/15/17 ? Scheduled for thoracentesis 12/15/17, pulmonology following ? Started on metoprolol as patient is with Afib ? C/W current insulin regimen, lantus 39 units QHS with SSI and monitor ? JORGE on CKD needing dialysis: - P- ANCA is elevated, suspecting microscopic polyangitis - Last HD and plasmapheresis on 12/13/17, will receive next on 12/14/17 - plan per nephrology is to c/w MWF HD, alternate day plasmapheresis for 5 sessions and to obtain renal biopsy on 12/15/17 Pleural effusion with left LL consolidation - Baseline O2 requirement 3.5L - PCT WNL - Hx of recurrent PNA contributing to respiratory failure - Hx of CREST - Recent echo with RVSP 51mmHg, LVEF 65%, stage 2 diastolic dysfunction, pericardial effusion with no tamponade - Pulmonology following - Scheduled for thoracentesis 12/15/17 ? DM2: - Onbasal insulin + SSI for better blood glucose control - monitor glucose Ac/ HS. ? HTN - Hold Hydralazine 2/2 autoimmune issues - Continue Clonidine - Held lasix - patient anuric - Restarted metoprolol in setting of afib ? Mild Gastritis - Continue with PPI ? A.fib - Bradycardic - on metoprolol - Will hold Amiodarone 2/2 pulm HTN - records from [place] reviewed, not on anticoagulation 2/2 anemia and hx of intra cerebral bleed ? CREST Constipation - Will add senna ? PAD - Continue ASA, Statin ? INES - CPAP at night ? Nasal pressure ulcer (POA) 2/2 cpap mask ? DVT PPX - Lovenox renal dose SIGNATURE: Jordyn Veliz MD PATIENT NAME: Michael Garcia DATE: December 14, 2017 TIME: 8:26 AM Pager: [phone] Nabila Cartagena, ELI, RN 12/14/2017 4:15 PM Signed Nursing Progress Note Patient Name: Michael Garcia Patient Location: [place] [address]/[facility]17[facility]* Pt c/o 04/14 heavy chest pain. Spoke with Dr Veliz by phone who stated she would come see the pt This note was completed by: ELI Matos MD, MD 12/14/2017 2:18 PM Signed CONSULT PROGRESS NOTE NEPHROLOGY SERVICE Following for JORGE on HD No complaints today No nausea No vomiting No SOB No CP MEDICATIONS: Current hospital medications: fluticasone 50 mcg/actuation 1 [place] (FLONASE) 1 [place] EACH NOSTRIL DAILY loratadine 10 mg tab(s) (CLARITIN) 10 mg ORAL DAILY insulin regular human injection (short acting) (NovoLIN R,HumuLIN R) SUBCUTANEOUS w MEALS atorvastatin 40 mg tab(s) (LIPITOR) 40 mg ORAL AT BEDTIME epoetin osvaldo 3,000 Units injection (PROCRIT) 3,000 Units INTRAVENOUS 3 Times weekly with dialysis heparin 1,000 unit/mL 3,800 Units injection 3,800 Units INTRALUMINAL 3 Times weekly with dialysis polyethylene glycol 3350 17 g packet (MIRALAX, GLYCOLAX) 17 g ORAL DAILY senna-docusate 8.6-50 mg 1 tablet (SENNA-S) 1 tablet ORAL AT BEDTIME insulin glargine 39 Units pen (long acting) (LANTUS SOLOSTAR, BASAGLAR) 39 Units SUBCUTANEOUS AT BEDTIME metoprolol tartrate (short acting) 12.5 mg tab(s) (LOPRESSOR) 12.5 mg ORAL q 12 H sodium chloride-aloe vera topical nasal gel (AYR GEL w/ALOE) INTRANASAL PRN albuterol HFA 90 mcg/actuation 2 Puff (PROVENTIL HFA, VENTOLIN HFA) 2 Puff INHALATION q 4 H PRN cloNIDine HCl 0.1 mg tab(s) (CATAPRES) 0.1 mg ORAL TID pantoprazole DR 40 mg tab(s) (PROTONIX) 40 mg ORAL DAILY enoxaparin 30 mg injection (LOVENOX) 30 mg SUBCUTANEOUS DAILY dextrose 40 % 15 g 15 g ORAL PRN glucagon 1 mg injection (GLUCAGEN) 1 mg INTRAMUSCULAR PRN dextrose 50% in water 25 mL syringe 12.5 g INTRAVENOUS PRN Objective PHYSICAL EXAM: BP 138/62 Pulse 69 Temp 36.7 ?C (98.1 ?F) (Oral) Resp 18 Ht 165.1 cm (5' 5) Wt 99.5 kg (219 lb 5.7 oz) SpO2 91% BMI 36.5 kg/m2 Intake/Output Summary (Last 24 hours) at 12/14/17 1415 Last data filed at 12/13/172056 Gross per 24 hour Intake 700 ml Output 0 ml Net 700 ml Constitutional: No acute distress, Responsive, Normal habitus and Well-nourished Neck: Trachea midline No jugular venous distension Cardiovascular: Regular rate and ryhthm, normal S1 and S2, no murmurs, rubs, or gallops No peripheral edema Respiratory: Normal respiratory effort. Lungs clear bilaterally. Abdomen: Soft, non-tender, non-distended. Normal bowel sounds. No hepatosplenomegaly. Psychiatric: Alert and oriented x self, place, time, and setting Normal mood/affect DATA: Diagnostic tests reviewed for today's visit: Most recent labs Recent Labs 12/13/17 2330 12/13/17 0305 12/12/17 1620 NA -- 136 135* K -- 4.2 4.2 CHLOR -- 99 98 CO2 -- 32 32 BUN -- 59* 51* CREAT -- 3.70* 3.23* GLUC -- 209* 139* ANION -- 9 9 CA -- 8.6 8.6 P 2.1* -- 5.0* MG 1.6 -- 2.3 Recent Labs 12/13/17 0305 12/12/17 1620 WBC 9.10 8.85 HB 8.5* 8.7* HCT 27.7* 28.7* PLT 174* 168* No results for input(s): COLOR, CLARITY, UGLUC, UBILI, UKET, SPGR, UHB, UPH, UPROT, NITRITES, LEUKEST, UWBC, URBC in the last 8784 hours. Assessment/Plan ?? 1- JORGE on CKD. 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 HD MWF. Last HD session yesterday 12/13 Next HD session 12/15. 2nd session of PEX tomorrow. Will continue total of 5 sessions every other day Kidney Bx tomorrow Patient will eventually needs Rituxan and prednisone if Kidney Bx is + for P-ANCA ? 2-Anemia: continue TEZ with HD session ? 3- HTN: BP is well controlled. Continue the same meds ? 4- DM: glycemic control is as per the primary service ? ? Will continue to follow ? ? Nidia Jones MD [phone] ? Teresa Palacio TOP LOADER, TOP LOADER 12/15/2017 8:36 AM Attested Addendum Attestation signed by Raimundo Wall at 12/15/2017 9:18 AM [facility] STAFF PHYSICIAN NOTE OF PERSONAL INVOLVEMENT IN CARE I have reviewed the documentation by the AYLEEN and I personally participated in the martinez components. I have discussed the case and management of the patient's care. The following comments revise or confirm relevant martinez components of the note. Patient seen and examined. Data reviewed. Discussed with ; discussed PAH needs followup and may need RHC To see if needs thora via US Will follow up ;with Dr Jose Valencia Pulrose noted Holding atb SIGNATURE: Raimundo Wall MD [facility] TIME of SERVICE: 9:16 AM PULMONARY/CCM PROGRESS NOTE [facility]AG SERVICE DATE: December 15, 2017 SERVICE TIME: 8:16 AM Subjective Denies shortness of breath at rest, but does admit to some [place] Denies cough or phlegm production Still complaining of sinus draining and post nasal drip Denies chest pain, fevers/chills/sweats, nausea/vomiting/diarrhea Wears 3.5LO2 at home Objective CURRENT MEDICATIONS Current Facility-Administered Medications: fluticasone 50 mcg/actuation 1 [place] (FLONASE) 1 [place] EACH NOSTRIL DAILY Umu (Offc Spec) Gabriel, TOP LOADER 1 [place] at 12/14/17 1211 loratadine 10 mg tab(s) (CLARITIN) 10 mg ORAL DAILY Umu (Offc Spec) Gabriel, TOP LOADER 10 mg at 12/14/17 1210 pill splitter (patient-specific) 1 Each Miscell. (Med.Supl.;Non- Drugs) PRN Bianca Ayalauso insulin regular human injection (short acting) (NovoLIN R,HumuLIN R) SUBCUTANEOUS w MEALS [place] (Res) [place] 6 Units at 12/14/17 1657 atorvastatin 40 mg tab(s) (LIPITOR) 40 mg ORAL AT BEDTIME [place] (Res) [place] 40 mg at 12/14/172017 epoetin osvaldo 3,000 Units injection (PROCRIT) 3,000 Units INTRAVENOUS 3 Times weekly with dialysis Nidia Jones MD 3,000 Units at 12/13/17 1800 heparin 1,000 unit/mL 3,800 Units injection 3,800 Units INTRALUMINAL 3 Times weekly with mckayla Jones MD 3,800 Units at 12/13/17 1845 polyethylene glycol 3350 17 g packet (MIRALAX, GLYCOLAX) 17 g ORAL DAILY Bianca Lobo 17 g at 12/14/17 0824 senna-docusate 8.6-50 mg 1 tablet (SENNA-S) 1 tablet ORAL AT BEDTIME Bianca Lobo 1 tablet at 12/14/17 2018 insulin glargine 39 Units pen (long acting) (LANTUS SOLOSTAR, BASAGLAR) 39 Units SUBCUTANEOUS AT BEDTIME [place] (Res) [place] 39 Units at 12/14/17 2018 metoprolol tartrate (short acting) 12.5 mg tab(s) (LOPRESSOR) 12.5 mg ORAL q 12 H Luisa (Res) [place]ark[place]un[place] 12.5 mg at 12/14/17 2018 sodium chloride-aloe vera topical nasal gel (AYR GEL w/ALOE) INTRANASAL PRN Luisa (Res) [place] 1 application at 12/13/17 1341 albuterol HFA 90 mcg/actuation 2 Puff (PROVENTIL HFA, VENTOLIN HFA) 2 Puff INHALATION q 4 H PRN Bianca Lobo cloNIDine HCl 0.1 mg tab(s) (CATAPRES) 0.1 mg ORAL TID Noman (Res) Vura 0.1 mg at 12/14/17[address] pantoprazole DR 40 mg tab(s) (PROTONIX) 40 mg ORAL DAILY Noman (Res) [place] 40 mg at 12/14/17 0823 dextrose 40 % 15 g 15 g ORAL PRN Noman (Res) [place] Or glucagon 1 mg injection (GLUCAGEN) 1 mg INTRAMUSCULAR PRN Noman (Res) [place] Or dextrose 50% in water 25 mL syringe 12.5 g INTRAVENOUS PRN Noman (Res) Vura Intake/Output Summary (Last 24 hours) at 12/15/17 0816 Last data filed at 12/15/17 0044 Gross per 24 hour Intake 360 ml Output 2 ml Net 358 ml NEW LABS/MICRO DATA/RADIOLOGY FILMS NO MICROBIOLOGY DATA BNP 56830 PROCALCITONIN 0.29 BMP: Glucose (mg/dL) Date Value 12/15/2017 177 Potassium (mEq/L) Date Value 12/15/2017 3.6 Sodium (mEq/L) Date Value 12/15/2017 134 Chloride (mEq/L) Date Value 12/15/2017 96 CO2 (mEq/L) Date Value 12/15/2017 32 Creatinine (mg/dL) Date Value 12/15/2017 2.76 BUN (mg/dL) Date Value 12/15/2017 36 Anion Gap (no units) Date Value 12/15/2017 10 Calcium (mg/dL) Date Value 12/15/2017 8.0 CBC: Hemoglobin (g/dL) Date Value 08/09/2017 9.3 06/08/2016 11.9 HGB (g/dL) Date Value 12/15/2017 8.4 12/14/2017 9.3 12/13/2017 8.5 Hematocrit (%) Date Value 12/15/2017 26.9 12/14/2017 29.8 12/13/2017 27.7 WBC (thou/cmm) Date Value 12/15/2017 5.33 12/14/2017 5.72 12/13/2017 9.10 CXR 12/13/17 PULMONARY VENOUS CONGESTION WITH INTERSTITIAL EDEMA. ?SMALL BILATERAL PLEURAL EFFUSIONS. ?LEFT LOWER LOBE CONSOLIDATION VQ SCAN 12/14/17 SCINTIGRAPHIC FINDINGS ASSOCIATED WITH A LOW PROBABILITY ?OF PULMONARY EMBOLISM. CXR 12/14/17 Cardiomegaly. ? No pleural effusions. ? Prominent central vasculature suggesting an element of vascular congestion. 12/15/17 0500 12/15/17 0600 12/15/17 0653 12/15/17 0700 BP: (!) 126/46 Pulse: 65 Resp: 18 Temp: 36.8 ?C (98.2 ?F) TempSrc: Oral SpO2: 100% 96% 95% 96% Weight: Height: PHYSICAL EXAM: VITALS: as above, reviewed. On GENERAL: AAOx3, pleasant, obese, resting in bed, NAD. at bedside RESPIRATORY: CTA with diminished breath sounds in the bases, few scattered crackles posteriorly, even/unlabored respirations at rest. No accessory muscle use, no pursed lip breathing, no wheezing, no conversational dyspnea. On CARDIOVASCULAR: Normal S1S2, RRR. No edema. GI: Abdomen soft, nondistended, nontender, bowel sounds present x4. Umbilical hernia palpable EXTREMITIES: No clubbing or cyanosis. MAEx4. Left chest tunneled HD cath c/d/i ASSESSMENT AND PLAN: 1) Acute on Chronic Hypoxic and Hypercapnic Respiratory Failure - multifactorial - resolved, stable on baseline home oxygen 3.. Ok to keep sats >90%. VQ Scan low probability PE. Increase activity as able. Encourage IS Q1H, out of bed to chair. Continue with Albuterol PRN. Discontinue continuous pulse oximetry. Check ambulatory pulse oximetry. 2) Bilateral Pulmonary Infiltrates vs Pulmonary Edema (L > R) with Small to Moderate Left Pleural Effusion - etiology either volume vs infectious - no clinical signs or symptoms of pneumonia and procalcitonin low. Suspect etiology is mostly volume related with elevated BNP. Continue to monitor off antibiotics. Await diagnostic left thoracentesis today. Discussed with patient and her the risks and benefits of the procedure and they are agreeable to proceed. Will check repeat echocardiogram. 3) URI - likely viral - continue with Flonase, Loratadine, PRN Albuterol. No indication for antibiotics or steroids. 4) Moderate Pulmonary HTN (per echocardiogram, RVSP 51) - suspect WHO group I/II/III - No indication for PAH directed therapies. Continue with optimization of comorbidities. OP follow up with Dr Valencia in [place]. 5) Acute on Chronic Diastolic HF with EF 65% - continue with BB and volume management via HD. Keep O>I, check daily weights, CHF Diet. Repeat echocardiogram pending. 6) INES - CPAP compliant QHS and PRN all sleep 7) Obesity - BMI 36.5 8) JORGE on CKD - management per Nephrology. 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 Continue with HD and PRN Plasmapheresis. Renal biopsy pending for today. 9) CREST Syndrome/Scleroderma - 10) Recent LLL Pneumonia - completed treatment with Zosyn and Levaquin. Continue with plan outlined above and monitor off antibiotics. SIGNATURE: Teresa Palacio CNP PATIENT NAME: Michael Garcia DATE: December 15, 2017 TIME: 8:16 AM PAGER/CONTACT #: [phone] Previous Version Frances Piña, PT, PT 12/15/2017 8:56 AM Signed Physical Therapy Evaluation SERVICE DATE: 12/15/2017 SERVICE TIME: 804 to 834 ROOM: [place] [address] Recommended Discharge Disposition: Home PT Anticipated Discharge Needs: Physical Assist at Home;Supervision at Home Physical Assist at Home for: Transfers;Ambulation;Cleaning;Laundry;Meals;Stairs;Safety;Transportation Supervision at Home due to: Decreased safety awareness PT Recommendations to Nursing: With assist of 1 person;Sit at edge of bed *do not leave patient unattended at edge of bed at end* (Amb with wheeled walker to bathroom/around room) PT 6 Clicks Score: 15 Precautions/Activity Restrictions: Bed/Chair Alarm;Lines/Tubes/Drains;Fall Risk Precaution/Activity Restriction Comments: 3L O2, pulse ox monitor ASSESSMENT : Patient presents with personal factors, comorbidities and results of the PT examination that require moderate complexity decision making. The patient requires skilled physical therapy to address multiple PT problems in order for the patient to return to a baseline functional level. Tolerated Full Session (but with noted fatigue; Nabila exertion rating of 7) Physical Therapy Problem List: Education Deficit;Safety Deficits;Decreased Strength;Functional Mobility Impairment Patient /Caregiver Goals: Go Home Goals for Plan of Care: Rolling with: Contact Guard Assistance Transfer supine to/from sit with: Contact Guard Assistance Transfer sit to/from stand with: Supervision Ambulate with: Stand By Assistance Distance: 25x2 Device: Wheeled Walker Goal: Able to perform LE gen strengthening ex 2x15 ea Goal: Able to amb 15ft with SpO2 >95 Rehab Potential: Good PLAN: Treatment Frequency (times per week): 5 (1-5) Current admission Treatment Interventions: Education;Energy Conservation Training;Strengthening;Functional Mobility Training;Balance Training;Neuromuscular Re-education Plan of Care developed with: Patient;Caregiver TREATMENT INTERVENTIONS: Therapy Diagnosis: Reduced mobility-other;Muscle Weakness (generalized);Abnormalities of gait and mobility-other Interventions Provided: Evaluation;Gait Training (56152) $ Evaluation-Moderate (15927) Billed Units: 1 unit Gait Training (75578) Treatment Minutes: 8 1 unit Skilled Intervention(s): Instruction in sit to stand technique with proper hand placement and body positioning at edge of bed/chair, Instruction in stand to sit technique with LE's touching chair/bed and reaching back for surface, Instruction in sequencing, gait pattern, Instruction in correction of gait deviations, Instruction in use of equipment, cues for sequence and pattern Pt required constant cuing and education on fall prevention and staying within FWW while amb and navigating direction change/turns Patient required assistance verbally and physically to safely negotiate O2 tubing while amb in room Multiple verbal cues for proper hand placement during [id number] transfers Patient set up in chair with call light and phone in reach on bedside table. Advised to use call light and wait for assist to get back to bed Nurse informed patient up in chair Total Timed Code Treatment Minutes: 8 Total Treatment Time (minutes): 30 FUNCTIONAL G CODE: PT 6 Clicks Score: 15 (12/15/17804) Mobility: Walking and Moving Around Current Status (G8978): CK (12/15/17804) Mobility: Walking and Moving Around Goal Status (G8979): CJ (12/15/17804) Based on clinical assessment and the score on the 6 Clicks Functional Assessment Tool, the G code and corresponding severity modifiers are documented above. SUBJECTIVE: Current Hospital Course: Chart reviewed; . 72 year old female that presented to hospital due to chest pain. Active Hospital Problems Diagnosis - JORGE (acute kidney injury) ([facility]) PAST MEDICAL HISTORY Diagnosis Date - Cerebellar hemorrhage, acute ([facility]) 04/04/2016 - CKD (chronic kidney disease) stage 3, GFR 30-59 ml/min 04/04/2016 - CREST variant of scleroderma ([facility]) 04/04/2016 - Diabetic peripheral neuropathy associated with type 2 diabetes mellitus ([facility]) 01/19/2016 - Essential hypertension with goal blood pressure less than 130/85 01/19/2016 - Hyperlipidemia 01/19/2016 - Ischemic ulcer of finger with necrosis of muscle ([facility]) 01/19/2016 Left 3rd finger tip - Lazy eye of left side 1949s - Legally blind 01/19/2016 - Primary osteoarthritis of right knee 01/19/2016 - Retinal hemorrhage of right eye 2007 - S/P craniotomy 04/04/2016 - Type 2 diabetes mellitus with renal manifestations ([facility]) 01/19/2016 Dr. Romeo, nephrology - Umbilical hernia without obstruction and without gangrene 01/19/2016 PAST SURGICAL HISTORY Procedure Laterality Date - ACHILLES TENDON SURGERY HX Right 1995 - BREAST BIOPSY CORE Left 2013 benign - [facility]2017 Colonoscopy w/bx [facility] - EGD W/O OR W/BRUSH/WASH 10/27/2017 EGD w/bx [facility] - LAPAROSCOPIC CHOLEYCYSTECTOMY Cholecystectomy, lap - REMOVAL OF TONSILS,<14 Y/O 1974 Tonsillectomy - REPAIR ROTATOR CUFF,ACUTE Right 1986 - REVISE MEDIAN N/CARPAL TUNNEL SURG Right 1989 - REVISE ULNAR NERVE AT ELBOW Right 1989 Patient Report: Lying on her back in bed. States her stomach and chest are uncomfortable. Rates 7/10 discomfort. Agreeable to PT Home Environment Patient Lives With: Significant Other ([address] [facility]) Assistance Available: 24 Hour Entry To Home: Stairs Number Of Stairs Into Home: 2 ( going to get railing) Number Of Stairs To Bed/Bath: 0 (Able to stay on 1st floor) Tub/Shower Type: standard ( helps) Laundry: Equipment Owned: Cane;Grab Bars-Shower;Wheeled Walker;Rollator Prior Functional Level: Required Assistance Assistance Required With: Ambulation;Cleaning;Laundry;Meals;Stairs;Safety;Self Care;Transportation Prior Functional Level Comments: cva 2016, only amb in home with assist OBJECTIVE: CURRENT FUNCTIONAL STATUS: Current Functional Mobility Assist Level Additional Information Rolling Minimal Assistance Supine to Sit Minimal Assistance Sit to Supine Scooting Sit to Stand Contact Guard Assistance Stand to Sit Contact Guard Assistance Bed to Chair Toilet/Commode Gait Contact Guard Assistance Gait Device: Wheeled Walker Gait Distance (feet): 15x2 General Gait Deviations: Halle decreased;Step length decreased;Flexed trunk posture Please see discipline specific clinical documentation flowsheet for complete details for this therapy evaluation/treatment. SIGNATURE: Frances Piña PT PATIENT NAME: Michael Garcia DATE: December 15, 2017 TIME: 8:50 AM PAGER/CONTACT #: [phone] Vani Hodge MD 12/15/2017 9:47 PM Signed [facility] DAILY PROGRESS NOTE SERVICE DATE: 12/15/2017 SERVICE TIME: 8:26 AM This is a 72 year old female with PMHx of CREST, HTN, CAD, Chronic respiratory failure on 3.5 L home O2 and T2DM with recent hospital admission for PNA, UTI, new onset Afib, c.diff, and JORGE requiring HD admitted currently per recommendation from child support agent for evaluation and management of p ANCA vasculitis. Scheduled for renal biopsy today to look for RPGN and for definitive diagnosis. Patient with Pulm HTN and recurrent PNA, CXR with pleural effusion, pulmonology following, scheduled for thoracentesis today. INTERVAL HISTORY: Patient with no acute events overnight. Overall finds her breathing better. Denies fever/chills/abdominal pain/low back pain. MEDICATIONS: Current hospital medications: perflutren lipid microspheres 1.1 mg/mL 1.3 mL injection (DEFINITY) 1.3 mL INTRAVENOUS PRN(NO DISPENSE) fluticasone 50 mcg/actuation 1 [place] (FLONASE) 1 [place] EACH NOSTRIL DAILY loratadine 10 mg tab(s) (CLARITIN) 10 mg ORAL DAILY pill splitter (patient-specific) 1 Each Miscell. (Med.Supl.;Non- Drugs) PRN insulin regular human injection (short acting) (NovoLIN R,HumuLIN R) SUBCUTANEOUS w MEALS atorvastatin 40 mg tab(s) (LIPITOR) 40 mg ORAL AT BEDTIME epoetin osvaldo 3,000 Units injection (PROCRIT) 3,000 Units INTRAVENOUS 3 Times weekly with dialysis heparin 1,000 unit/mL 3,800 Units injection 3,800 Units INTRALUMINAL 3 Times weekly with dialysis polyethylene glycol 3350 17 g packet (MIRALAX, GLYCOLAX) 17 g ORAL DAILY senna-docusate 8.6-50 mg 1 tablet (SENNA-S) 1 tablet ORAL AT BEDTIME insulin glargine 39 Units pen (long acting) (LANTUS SOLOSTAR, BASAGLAR) 39 Units SUBCUTANEOUS AT BEDTIME metoprolol tartrate (short acting) 12.5 mg tab(s) (LOPRESSOR) 12.5 mg ORAL q 12 H sodium chloride-aloe vera topical nasal gel (AYR GEL w/ALOE) INTRANASAL PRN albuterol HFA 90 mcg/actuation 2 Puff (PROVENTIL HFA, VENTOLIN HFA) 2 Puff INHALATION q 4 H PRN cloNIDine HCl 0.1 mg tab(s) (CATAPRES) 0.1 [address] ORAL TID pantoprazole [address] 40 mg tab(s) (PROTONIX) 40 mg ORAL DAILY dextrose 40 % 15 g 15 g ORAL PRN glucagon 1 mg injection (GLUCAGEN) 1 mg INTRAMUSCULAR PRN dextrose 50% in water 25 mL syringe 12.5 g INTRAVENOUS PRN HOME MEDICATIONS: cholecalciferol, vitamin D3, 50,000 unit tab Take 1 tablet by mouth once every month. amiodarone (PACERONE) 200 mg tablet Take 200 mg by mouth once daily. aspirin, enteric coated (ECOTRIN) 325 mg EC tablet Take 325 mg by mouth daily with breakfast. FERREX 150 150 mg iron capsule Take 1 capsule by mouth once daily. pantoprazole DR (PROTONIX) 40 mg tablet Take 1 tablet by mouth once daily. LANTUS SOLOSTAR 100 unit/mL (3 mL) inpn INJECT 39 UNITS SUBCUTANEOUSLY TWICE DAILY NOVOLOG FLEXPEN 100 unit/mL inpn INJECT 4 TIMES DAILY DIRECTED. GLUCOSE LESS THAN 150 = 0 U; 150-199=2 U; 200-249=4 U; 250-299=6 U; 300- 349=8 U; >350=10 U gabapentin (NEURONTIN) 300 mg capsule Take 1 capsule by mouth daily at bedtime. hydrALAZINE (APRESOLINE) 100 mg tablet Take 1 tablet by mouth three times daily. cloNIDine HCl (CATAPRES) 0.1 mg tablet Take 1 tablet by mouth three times daily. metoprolol succinate ER (TOPROL XL) 25 mg 24 hr tablet Take 1 tablet by mouth once daily. furosemide (LASIX) 40 mg tablet Take 1.5 tablets by mouth once daily. atorvastatin (LIPITOR) 40 mg tablet Take 1 tablet by mouth daily at bedtime. For cholesterol. gabapentin (NEURONTIN) 100 mg capsule Take one(1) tablet two(2) times daily. COMPOUNDED PRESCRIPTION Portable oxygen Dx: Hypoxemia. R09.02. 3 LPM via NC continuous. ergocalciferol, vitamin D2, (VITAMIN D) 50,000 unit capsule Take 1 capsule by mouth once every month. albuterol HFA (VENTOLIN HFA) 90 mcg/actuation inhaler Inhale 2 Puffs as instructed every 4 hours as needed for Wheezing/Shortness of Breath. PHYSICAL EXAM: 12/15/17 0500 12/15/17 0600 12/15/17 0653 12/15/17 0700 BP: (!) 126/46 Pulse: 65 Resp: 18 Temp: 36.8 ?C (98.2 ?F) TempSrc: Oral SpO2: 100% 96% 95% 96% Weight: Height: INTAKE/OUTPUT Intake/Output Summary (Last 24 hours) at 12/15/17 1022 Last data filed at 12/15/17 0044 Gross per 24 hour Intake 360 ml Output 2 ml Net 358 ml General: Awake and alert, in no distress, cooperative, left chest port present Neck: Supple without JVD or Lymphadenopathy Cardiac: RRR, S1S2 with no MGR Lungs: Bilateral basal creps, mild. No accessory muscle use. Abdomen: Soft non-tender, non-distended, normal bowel sounds Extremities: 2+ bilateral UE and bilateral pedal edema, no clubbing or skin discoloration. LAB DATA: Recent Labs 12/13/17 0305 12/12/17 1620 TROPI 0.016 -- WBC 9.10 8.85 RBC 2.90* 2.96* HB 8.5* 8.7* HCT 27.7* 28.7* MCV 95.5* 97.0* MCH 29.3 29.4 MCHC 30.7* 30.3* PLT 174* 168* MPV 9.9 10.3 GLUC 209* 139* BUN 59* 51* CREAT 3.70* 3.23* NA 136 135* K 4.2 4.2 CHLOR 99 98 CO2 32 32 TPROT -- 7.3 ALB -- 2.5* CA 8.6 8.6 ALKPHOS -- 72 TBILI -- 0.3 AST -- 12 ALT -- 7* MG -- 2.3 ASSESSMENT AND PLAN: Active Hospital Problems Diagnosis - JORGE (acute kidney injury) (HCC) PLAN FOR THE DAY ? Plan per nephrology is to c/w MWF HD, alternate day plasmapheresis for 5 sessions and to obtain renal biopsy on 12/15/17 ? Recurrent Chest pains - No acute ST/T wave changes on EKG with negative troponin, V/Q scan with low probability for PE, WELLS score 0 with low probability ? Para pneumonic effusion, scheduled for thoracentesis 12/15/17, pulmonology following ? C/W metoprolol as patient is with Afib. Family unwilling to c/w anti coagulation given her hx of intra cranial bleed. Explained risks and benefits in detail. Patient completely understands risk associated and verbalized the same. ? C/W lantus 39 units QHS, will schedule meal time insulin. C/W SSI ? Will adjust claritin dose for her renal function ? JORGE on CKD needing dialysis - P- ANCA is elevated, suspecting microscopic polyangitis - Last HD and plasmapheresis on 12/13/17, will receive next session today - plan per nephrology is to c/w MWF HD, alternate day plasmapheresis for 5 sessions and to obtain renal biopsy on 12/15/17 - Will check GUILLAUME given pleural and pericardial effusion Para pneumonic effusion with left LL consolidation - Baseline O2 requirement 3.5L - PCT WNL - Hx of recurrent PNA contributing to respiratory failure - Hx of CREST - Recent echo with RVSP 51mmHg, LVEF 65%, stage 2 diastolic dysfunction, pericardial effusion with no tamponade - Pulmonology following - Scheduled for thoracentesis 12/15/17 - Chest pain - No acute ST/T wave changes on EKG with negative troponin, V/Q scan with low probability for PE, WELLS score 0 with low probability ? DM2: - Onbasal insulin - Will add scheduled meal time insulin - SSI for better blood glucose control - monitor glucose Ac/ HS. ? HTN - Hold Hydralazine 2/2 autoimmune issues - Continue Clonidine - Held lasix - patient with gradually improving UO - Restarted metoprolol in setting of afib ? Mild Gastritis - Continue with PPI ? A.fib - Bradycardic - on metoprolol - Will hold Amiodarone 2/2 pulm HTN - records from [place] reviewed, not on anticoagulation 2/2 anemia and hx of intra cerebral bleed ? CREST Constipation - on senna ? PAD - Continue ASA, Statin ? INES - CPAP at night ? Nasal pressure ulcer (POA) 2/2 cpap mask ? DVT PPX - Lovenox renal dose SIGNATURE: Jordyn Veliz MD PATIENT NAME: Michael Garcia DATE: December 15, 2017 TIME: 8:26 AM Pager: [phone] Transferred to my service Chart reviewed Evaluated independently Discussed with Dr. Veliz and agree with above notes which reflect my input with following additions Awaiting for renal biopsy Discussed with patient Attestation signed by Vani Hodge MD [facility] [place] Attending December 15, 2017 9:46 PM Previous Version Vani Hodge MD 12/15/2017 9:51 PM Addendum MEDICAL STUDENT PROGRESS NOTE Nephrology Service SERVICE DATE: 12/15/2017 SERVICE TIME: 10:36 AM Attending Note TEACHING PHYSICIAN NOTE OF PERSONAL INVOLVEMENT IN CARE: I have interviewed the patient and updated the medical student's PFS history, and ROS as necessary. I have re-performed the HPI, Physical Examination, Assessment and Plan as noted below. HPI: No new complaints, says she has been voiding more, breathing is ok Exam: As below. Assessment: JORGE, CKD stage 3, p ANCA positive serology Plan: Kidney biopsy today, if GPA present will do pulse steroids, rituximab and plasmapheresis for 2 weeks total. Hold plasmapheresis today to avoid bleeding risk with biopsy HD as per schedule depending on labs Signature: Feroz Moody Ms Service Date: 12/15/2017 Service Time: 10:37 AM This note was generated by a MEDICAL STUDENT working under the supervision of an Attending Physician and is not authenticated until addended and cosigned by the Attending Physician at the beginning of this note. SUBJECTIVE CHIEF COMPLAINT: INTERVAL HISTORY OF PRESENT ILLNESS: Patient has been at [facility] since Friday night. Patient reports that she was at a hospital in [place] being treated for pneumonia and UTI and was receiving HD at that time for JORGE. The pt. was instructed to come of [facility] for kidney biopsy. Pt. Will undergo kidney Biopsy today 12/15 and receive plasmapheresis tomorrow d/t elevated P-ANCA levels. Pt. Reports that she had been making very small amount of urine for the past week, with the exception of yesterday when she made a lot of urine. Pt endorses chest pain with deep inspiration in a collar distribution across her chest bilaterally. Pt. Has PMHX of HTN CREST, DM 2 (which typically has Gluc of 200) CKD stage 3, Hypoxic respiratory failure and wears 3.5 L of Nasal o2 at home. Patient received last HD on 12/13, and is scheduled for HD today 12/15. Pt. Denies fever, headache, or SOB at this time. Other than her bout of PNA last week, patient denies chronic sinusitis or upper respiratory discomfort. Pt resports increased swelling in her ankles. MEDICATIONS: Current hospital medications: perflutren lipid microspheres 1.1 mg/mL 1.3 mL injection (DEFINITY) 1.3 mL INTRAVENOUS PRN(NO DISPENSE) fluticasone 50 mcg/actuation 1 [place] (FLONASE) 1 [place] EACH NOSTRIL DAILY loratadine 10 mg tab(s) (CLARITIN) 10 mg ORAL DAILY pill splitter (patient-specific) 1 Each Miscell. (Med.Supl.;Non- Drugs) PRN insulin regular human injection (short acting) (NovoLIN R,HumuLIN R) SUBCUTANEOUS w MEALS atorvastatin 40 mg tab(s) (LIPITOR) 40 mg ORAL AT BEDTIME epoetin osvaldo 3,000 Units injection (PROCRIT) 3,000 Units INTRAVENOUS 3 Times weekly with dialysis heparin 1,000 unit/mL 3,800 Units injection 3,800 Units INTRALUMINAL 3 Times weekly with dialysis polyethylene glycol 3350 17 g packet (MIRALAX, GLYCOLAX) 17 g ORAL DAILY senna-docusate 8.6-50 mg 1 tablet (SENNA-S) 1 tablet ORAL AT BEDTIME insulin glargine 39 Units pen (long acting) (LANTUS SOLOSTAR, BASAGLAR) 39 Units SUBCUTANEOUS AT BEDTIME metoprolol tartrate (short acting) 12.5 mg tab(s) (LOPRESSOR) 12.5 mg ORAL q 12 H sodium chloride-aloe vera topical nasal gel (AYR GEL w/ALOE) INTRANASAL PRN albuterol HFA 90 mcg/actuation 2 Puff (PROVENTIL HFA, VENTOLIN HFA) 2 Puff INHALATION q 4 H PRN cloNIDine HCl 0.1 mg tab(s) (CATAPRES) 0.1 mg ORAL TID pantoprazole DR 40 mg tab(s) (PROTONIX) 40 mg ORAL DAILY dextrose 40 % 15 g 15 g ORAL PRN glucagon 1 mg injection (GLUCAGEN) 1 mg INTRAMUSCULAR PRN dextrose 50% in water 25 mL syringe 12.5 g INTRAVENOUS PRN OBJECTIVE PHYSICAL EXAM: BP (!) 126/46 Pulse 65 Temp 36.8 ?C (98.2 ?F) (Oral) Resp 18 Ht 165.1 cm (5' 5) Wt 99.5 kg (219 lb 5.7 oz) SpO2 96% BMI 36.5 kg/m2 Body mass index is 36.5 kg/(m2). GENERAL: Alert, no distress, cooperative CV: normal heart sounds, irregular rhythm Resp: Diminished lung sounds bilaterally. No wheezes ronchi or crackles Abd: nt, soft nd Skin: no rashes or petechiae, edema of the right hand. No Edema of LEs DATA: Diagnostic tests reviewed for today's visit: BCB CMP Vitals ASSESSMENT AND PLAN: 1- JORGE on CKD. 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 HD MWF. Last HD session 12/13 Next HD session today 12/15. 2nd session of PEX tomorrow. Will continue total of 5 sessions every other day Kidney Bx today 12/15 Patient will eventually needs Rituxan and prednisone if Kidney Bx is + for P-ANCA ?? 2-Anemia: HGB - 8.4. continue TEZ with HD session ?? 3- HTN: BP is well controlled. Continue the same meds ?? 4- DM: glycemic control is as per the primary service ?? DVT Prophylaxis: Intermittent pneumatic compression device (IPCD) SIGNATURE: Feroz Moody Ms PATIENT NAME: Michael Garcia DATE: December 15, 2017 TIME: 10:36 AM PAGER/CONTACT #: Previous Version Manuel Mcgee MD 12/15/2017 1:43 PM Signed INTERVENTIONAL RADIOLOGY PRE-PROCEDURE INTERVAL HISTORY AND PHYSICAL EXAM UPDATE Date: 12/15/17 Name: Michael Garcia The History and Physical (completed in the past 30 days) has been reviewed and the patient has been examined. The contents accurately reflect the patient's condition with the following additions or revisions since the HANDP was completed. Examination indicates no changes. This HANDP can be found in the Electronic Medical Record dated 12/12/17 and 12/13/17. Manuel Mcgee MD 12/15/2017 2:28 PM Signed INTERVENTIONAL RADIOLOGY POST PROCEDURE NOTE DATE: 12/15/17 NAME: Michael Garcia LOG ID: [id number] Pre-Procedure Diagnosis: Renal failure Post Procedure Diagnosis: Same. 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 0 ml Specimen: Sent for pathology. Complications: None. Full report with procedural details to follow and will become available under Imaging Reports. Please contact for any questions or concerns. BELINDA RICE, PHARMACIST 12/15/2017 4:27 PM Addendum MEDICATION HISTORY Patient Name:Valeria Garcia : 1945 Source of history:Family: Reliability of source: Appears reliable, clearly identified: Medication name, Medication dose and Medication route and Pharmacy records: [facility] Medication Nonadherence Identified: No barriers noted The above information represents the best possible medication history: Yes Additional comments: Patient's states she no longer takes Ventolin. 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 12/12/2017 at Unknown time Yes aspirin, enteric coated (ECOTRIN) 325 mg EC tablet Take 325 mg by mouth daily with breakfast. 12/12/2017 at Unknown time Yes FERREX 150 150 mg iron capsule Take 1 capsule by mouth once daily. 12/12/2017 at Unknown time Yes pantoprazole DR (PROTONIX) 40 mg tablet Take 1 tablet by mouth once daily. 12/12/2017 at Unknown time Yes LANTUS SOLOSTAR 100 unit/mL (3 mL) inpn INJECT 39 UNITS SUBCUTANEOUSLY TWICE DAILY 12/12/2017 at Unknown time Yes NOVOLOG FLEXPEN 100 unit/mL inpn INJECT 4 TIMES DAILY DIRECTED. GLUCOSE LESS THAN 150 = 0 U; 150-199=2 U; 200-249=4 U; 250-299=6 U; 300- 349=8 U; >350=10 U 12/12/2017 at Unknown time Yes gabapentin (NEURONTIN) 300 mg capsule Take 1 capsule by mouth daily at bedtime. 12/11/2017 at Unknown time Yes hydrALAZINE (APRESOLINE) 100 mg tablet Take 1 tablet by mouth three times daily. 12/12/2017 at Unknown time Yes cloNIDine HCl (CATAPRES) 0.1 mg tablet Take 1 tablet by mouth three times daily. 12/12/2017 at Unknown time Yes metoprolol succinate ER (TOPROL XL) 25 mg 24 hr tablet Take 1 tablet by mouth once daily. 12/12/2017 at Unknown time Yes furosemide (LASIX) 40 mg tablet Take 1.5 tablets by mouth once daily. 12/12/2017 at Unknown time Yes atorvastatin (LIPITOR) 40 mg tablet Take 1 tablet by mouth daily at bedtime. For cholesterol. 12/11/2017 at Unknown time Yes COMPOUNDED PRESCRIPTION Portable oxygen Dx: Hypoxemia. R09.02. 3 LPM via SD continuous. ergocalciferol, vitamin D2, (VITAMIN D) 50,000 unit capsule Take 1 capsule by mouth once every month. albuterol HFA (VENTOLIN HFA) 90 mcg/actuation inhaler Inhale 2 Puffs as instructed every 4 hours as needed for Wheezing/Shortness of Breath. Padma Bangura (Sponge Packer) December 15, 2017 3:03 PM I discussed medication history with pharmacy technician instructor. I removed a duplicate vitamin D order from the patient's medication list. BELINDA RICE, PHARMACIST 4:27 PM Previous Version Liv Fuller, RN, RN 12/15/2017 3:29 PM Addendum CARE MANAGEMENT: ASSESSMENT AND DISCHARGE PLAN SERVICE DATE: 12/15/2017 SERVICE TIME: 5 PRIMARY CARE PHYSICIAN: Mat Duffy MD ADMISSION STATUS: Inpatient Needs Prior to Discharge: To Be Determined;OT/PT Evaluation;Pharmacy Bedside Delivery MEDICAL: Patient/Iv Technician Stated Goals: To return home to life as it was Health Insurance: [employer] MEDICARE PPO [employer] Medicare Health Issues Impacting Discharge Plan: None and To be determined Last Admission Date: none Is this Within the Past 30 days? no Health Literacy: 1. How often do you need to have someone help you when you read instructions, pamphlets, or other written material from your doctor or pharmacy? Always - 5 2. How confident are you filling out medical forms by yourself? A little bit - 4 If Patient scores > 3 on either question, the following interventions were put into place: Use of plain language and active listening with Patient and family FUNCTIONAL AND COGNITIVE/BEHAVIORAL PRIOR TO ADMISSION: Baseline Mental Status: Alert AND Oriented, Person, Place , Time and Situation Functional Status: Needs Assistance Does Patient Currently Receive Any Community Services or Home Care? Residential Equipment Prior to Admission: Walker, home O2 3.5 liters nc , rollator, transport chair, shower seat, grab bars Has the Patient Been in a Residential Facility in the Past 30 days? No SOCIAL: Living Arrangement: Home Lives With: Spouse Financial Resources: Retired Primary Contact: Extended Emergency Contact Information Primary Emergency Contact: Jey Garcia Mobile Relation: Spouse Supportive: Yes Other Important Patient Contacts: None Caregiver Assessment: Caregiver is ready, willing and able to meet the patient's needs as recommended by the inter-professional team? Yes Patient's transition needs and plan for meeting these needs: yes Does the patient have an acute stroke diagnosis, or has the patient had a stroke during this admission? No Medication Adherence: I am convinced of the importance of my prescription medication: Agree completely - 0 I worry that my prescription medication will do more harm than good to me Disagree completely - 0 I feel financially burdened by my [id number] expenses for my prescription medication: Disagree completely - 0 Patient is categorized as low risk < 2 Are you interested in bedside delivery of your medications? Yes Food Concerns: In the Last Month, Have You had Trouble Getting Food? No trouble getting food During the Last Month, Have You Worried Whether Your Food Would Run Out Before You Had Enough Money to Buy More? No Is the Patient Psychosocially Complex? No ASSESSMENT AND PLAN: Medical Needs: To be determined Psychosocial Needs: None FREEDOM OF CHOICE EXPLAINED: To be determined POTENTIAL TRANSITION PLANS No Services Indicated To be determined. Pt is a dialysis pt. [facility] [place] Every MWF. Chair time 0600. SIGNATURE: Liv Fuller RN PATIENT NAME: Michael Garcia DATE: December 15, 2017 TIME: 3:15 PM PAGER/CONTACT #: [phone] Previous Version Umu Rios CNP, CNP 12/16/2017 8:34 AM Attested Attestation signed by Raimundo Wall at 12/16/2017 9:04 AM [facility] STAFF PHYSICIAN NOTE OF PERSONAL INVOLVEMENT IN CARE I have reviewed the documentation by the AYELEN and I personally participated in the martinez components on 8100. I have discussed the case and management of the patient's care. The following comments revise or confirm relevant martinez components of the note.Data reviewed. US: no thora needed , not surprised p ANCA noted, post renal biopsy Outside CT abd no major basilar lung issue or fibrosis mentioned Plan: Ok for discharge Home 02 Likely needs RHC with ?PAH therapy per outside pulm Dr Valencia stated per family, as expect Scleroderma progression. No need cellcept for ILD currently. No real signs of pANCA vasculitis or pneumonitis lungs currently, ??two major diagnosis here SIGNATURE: Raimundo Wall MD [facility] TIME of SERVICE: 9:01 AM PULMONARY/CCM PROGRESS NOTE [facility] SERVICE DATE: December 16, 2017 SERVICE TIME: 8:13 AM Subjective Denies any complaints today. My breathing feels back to my normal baseline AND my sinus congestion and post nasal drip are much improved. No shortness of breath, cough, phlegm, fevers or chills. Objective CURRENT MEDICATIONS Current Facility-Administered Medications: perflutren lipid microspheres 1.1 mg/mL 1.3 mL injection (DEFINITY) 1.3 mL INTRAVENOUS PRN(NO DISPENSE) Teresa Hyatt) JULIO C Palacio insulin lispro 4 Units pen (rapid acting) (HumaLOG KWIKPEN) 4 Units SUBCUTANEOUS w MEALS Kyrarmvir (Res) Ayaan 4 Units at 12/15/17 1624 loratadine 5 mg tab(s) (CLARITIN) 5 mg ORAL DAILY Dharmvir (Res) Ayaan insulin lispro pen (rapid acting) (HumaLOG KWIKPEN) SUBCUTANEOUS w MEALS Jordyn Priyadarsmichael (Res) Jose Alfredo fluticasone 50 mcg/actuation 1 [place] (FLONASE) 1 [place] EACH NOSTRIL DAILY Umu Hyatt) JULIO C Rios 1 [place] at 12/15/17 0855 pill splitter (patient-specific) 1 Each Miscell. (Med.Supl.;Non- Drugs) PRN Bianca Lobo atorvastatin 40 mg tab(s) (LIPITOR) 40 mg ORAL AT BEDTIME [place] (Res) [place] 40 mg at 12/15/172026 epoetin osvaldo 3,000 Units injection (PROCRIT) 3,000 Units INTRAVENOUS 3 Times weekly with mckayla Jones MD 3,000 Units at 12/13/17 1800 heparin 1,000 unit/mL 3,800 Units injection 3,800 Units INTRALUMINAL 3 Times weekly with dialysis Nidia Jones MD 3,800 Units at 12/13/17 1845 polyethylene glycol 3350 17 g packet (MIRALAX, GLYCOLAX) 17 g ORAL DAILY Bianca Voo 17 g at 12/14/17 0824 senna-docusate 8.6-50 mg 1 tablet (SENNA-S) 1 tablet ORAL AT BEDTIME Bianca Ayalauso 1 tablet at 12/15/172026 insulin glargine 39 Units pen (long acting) (LANTUS SOLOSTAR, BASAGLAR) 39 Units SUBCUTANEOUS AT BEDTIME [place] (Res) [place] 39 Units at 12/15/172026 metoprolol tartrate (short acting) 12.5 mg tab(s) (LOPRESSOR) 12.5 mg ORAL q 12 H Luisa (Res) [place] 12.5 mg at 12/15/172026 sodium chloride-aloe vera topical nasal gel (AYR GEL w/ALOE) INTRANASAL PRN Luisa (Res) [place] 1 application at 12/13/17 2315 albuterol HFA 90 mcg/actuation 2 Puff (PROVENTIL HFA, VENTOLIN HFA) 2 Puff INHALATION q 4 H PRN Bianca Lobo cloNIDine HCl 0.1 mg tab(s) (CATAPRES) 0.1 mg ORAL TID Noman (Res) Vura 0.1 mg at 12/15/17[address] 40 mg tab(s) (PROTONIX) 40 mg ORAL DAILY Noman (Res) [place] 40 mg at 12/15/17 0855 dextrose 40 % 15 g 15 g ORAL PRN Noman (Res) Vura Or glucagon 1 mg injection (GLUCAGEN) 1 mg INTRAMUSCULAR PRN Noman (Res) V[place] Or dextrose 50% in water 25 mL syringe 12.5 g INTRAVENOUS PRN Noman (Res) Vura Intake/Output Summary (Last 24 hours) at 12/16/17 0813 Last data filed at 12/15/17 2335 Gross per 24 hour Intake 240 ml Output 3 ml Net 237 ml NEW LABS/MICRO DATA/RADIOLOGY FILMS NO MICROBIOLOGY DATA BNP 70752 PROCALCITONIN 0.29 BMP: Glucose (mg/dL) Date Value 12/16/2017 206 Potassium (mEq/L) Date Value 12/16/2017 4.3 Sodium (mEq/L) Date Value 12/16/2017 136 Chloride (mEq/L) Date Value 12/16/2017 100 CO2 (mEq/L) Date Value 12/16/2017 30 Creatinine (mg/dL) Date Value 12/16/2017 2.92 BUN (mg/dL) Date Value 12/16/2017 48 Anion Gap (no units) Date Value 12/16/2017 10 Calcium (mg/dL) Date Value 12/16/2017 8.2 CBC: Hemoglobin (g/dL) Date Value 08/09/2017 9.3 06/08/2016 11.9 HGB (g/dL) Date Value 12/16/2017 7.8 12/15/2017 8.4 12/14/2017 9.3 Hematocrit (%) Date Value 12/16/2017 25.5 12/15/2017 26.9 12/14/2017 29.8 WBC (thou/cmm) Date Value 12/16/2017 4.80 12/15/2017 5.33 12/14/2017 5.72 CXR 12/13/17 PULMONARY VENOUS CONGESTION WITH INTERSTITIAL EDEMA. ?SMALL BILATERAL PLEURAL EFFUSIONS. ?LEFT LOWER LOBE CONSOLIDATION VQ SCAN 12/14/17 SCINTIGRAPHIC FINDINGS ASSOCIATED WITH A LOW PROBABILITY ?OF PULMONARY EMBOLISM. CXR 12/14/17 Cardiomegaly. ? No pleural effusions. ? Prominent central vasculature suggesting an element of vascular congestion. US CHEST 12/15/17: No left pleural effusion is identified. ?A left thoracentesis was not performed. 12/15/17202312/15/17 2346 12/16/17 0321 03/13/18 0742 BP: 143/56 (!) 137/48 95/52 Pulse: 65 67 67 60 Resp: Temp: 36.8 ?C (98.2 ?F) 36.7 ?C (98.1 ?F) TempSrc: Oral Oral SpO2: 97% 100% 98% Weight: 98.5 kg (217 lb 2.5 oz) Height: PHYSICAL EXAM: VITALS: as above, reviewed. Stable on home baseline O2 of 3.5LO2 GENERAL: AAOx3, pleasant, obese, sitting up in bedside recliner in NAD. at bedside RESPIRATORY: CTA with diminished breath sounds in the bases. Even/unlabored respirations at rest. No accessory muscle use, pursed lip breathing, wheezing or conversational dyspnea. On 3.5LO2 CARDIOVASCULAR: Normal S1S2, RRR. No edema. GI: Abdomen soft, nondistended, nontender, bowel sounds present x4. +palpable umbilical hernia EXTREMITIES: No clubbing or cyanosis. MAEx4. Left chest tunneled HD cath C/D/I ASSESSMENT AND PLAN: 1) Acute on Chronic Hypoxic and Hypercapnic Respiratory Failure - multifactorial - resolved, stable on baseline home oxygen 3.5LO2. Keep sats >90%. VQ Scan with low probability PE. Increase activity as able AND encourage IS Q1H / up out of bed to chair. Continue with PRN Albuterol. Discontinue continuous pulse oximetry. Check ambulatory pulse oximetry prior to discharge. 2) Bilateral Pulmonary Infiltrates vs Pulmonary Edema (L > R) with Small Left Pleural Effusion - etiology unclear - volume vs infectious, though favor the former given no clinical signs or symptoms of pneumonia and low procalcitonin. Left thoracentesis was unable to be completed yesterday due to no fluid upon ultrasound. Suspect etiology is mostly volume related with elevated BNP. Continue to monitor off antibiotics AND continue with HD per nephrology. Awaiting repeat echocardiogram. 3) URI - likely viral - continue with Flonase, Loratadine, PRN Albuterol. No indication for antibiotics or steroids. 4) Moderate Pulmonary HTN (per echocardiogram, RVSP 51) - suspect WHO group II/III +/- group I. No indication for PAH directed therapies at this time. Continue with optimization of comorbidities. OP follow up with Dr. Valencia in [place]. May eventually need RHC. 5) Acute on Chronic Diastolic HF with EF 65% - continue with BB and volume management via HD. Keep O>I, check daily weights, CHF Diet. Await repeat echocardiogram. 6) INES - CPAP compliant QHS and PRN all sleep 7) Obesity - BMI 36.5 - weight loss strongly encouraged. 8) JORGE on CKD s/p renal biopsy 12/15 - Continue with management per Nephrology. 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 Continue with HD and PRN Plasmapheresis. Await biopsy results. 9) CREST Syndrome/Scleroderma 10) Recent LLL Pneumonia - completed treatment with Zosyn and Levaquin. Continue with plan outlined above and monitor off antibiotics. 11) MMP - per primary 12) Discharge Planning - Patient remains stable from a pulmonary standpoint. Await renal biopsy as above. We will follow PRN as we have no current new recommendations. Please call if patient worsens. Plan to follow up with Dr. Valencia in [place] as outlined above. SIGNATURE: Umu Rios CNP PATIENT NAME: Michael Garcia DATE: December 16, 2017 TIME: 8:13 AM PAGER/CONTACT #: [phone] Laura Castillo, RN, RN 12/16/2017 8:46 AM Signed Continuous pulse ox discontinued per pulm orders. Roxann Harry, RN, RN 12/16/2017 8:52 AM Signed DIRECTOR OF GIFT PLANNING NOTE SERVICE DATE: 12/16/2017 SERVICE TIME: 8:51 AM Referral: Home Care referral received by: RO Patient is active with [facility] agency for skilled care Will continue to follow for physician orders SIGNATURE: Roxann Harry RN PATIENT NAME: Michael Garcia DATE: December 16, 2017 TIME: 8:51 AM Feroz Moody Ms 12/16/2017 10:40 AM Cosign Needed MEDICAL STUDENT PROGRESS NOTE Nephrology Service, SERVICE DATE: 12/16/2017 SERVICE TIME: 10:14 AM Attending Note TEACHING PHYSICIAN NOTE OF PERSONAL INVOLVEMENT IN CARE: I have interviewed the patient and updated the medical student's PFS history, and ROS as necessary. I have re-performed the HPI, Physical Examination, Assessment and Plan as noted below. HPI: Exam: Assessment: Plan: Signature: Feroz Moody Ms Service Date: 12/16/2017 Service Time: 10:14 AM This note was generated by a MEDICAL STUDENT working under the supervision of an Attending Physician and is not authenticated until addended and cosigned by the Attending Physician at the beginning of this note. SUBJECTIVE CHIEF COMPLAINT: INTERVAL HISTORY OF PRESENT ILLNESS: Patient has been at [facility] since Friday night. The Patient reports that she is doing well today, and slept well last night. Patient had a kidney biopsy yesterday 12/15 and will be receiving Plasmapheresis today for her positive PANCA serology. Patient reports good appitite for breakfast. Pt denies nausea vomiting and diarrhea. Pt denies chest pain, SOB, or headache. Pt Reports that she made about 1/4 cup of urine in the past two days. The urine has been clear in color and without dysuria.Pt. Has PMHX of HTN CREST, DM 2 (which typically has Gluc of 200) CKD stage 3, Hypoxic respiratory failure and wears 3.5 L of Nasal o2 at home. MEDICATIONS: Current hospital medications: perflutren lipid microspheres 1.1 mg/mL 1.3 mL injection (DEFINITY) 1.3 mL INTRAVENOUS PRN(NO DISPENSE) insulin lispro 4 Units pen (rapid acting) (HumaLOG KWIKPEN) 4 Units SUBCUTANEOUS w MEALS loratadine 5 mg tab(s) (CLARITIN) 5 mg ORAL DAILY insulin lispro pen (rapid acting) (HumaLOG KWIKPEN) SUBCUTANEOUS w MEALS fluticasone 50 mcg/actuation 1 [place] (FLONASE) 1 [place] EACH NOSTRIL DAILY pill splitter (patient-specific) 1 Each Miscell. (Med.Supl.;Non- Drugs) PRN atorvastatin 40 mg tab(s) (LIPITOR) 40 mg ORAL AT BEDTIME epoetin osvaldo 3,000 Units injection (PROCRIT) 3,000 Units INTRAVENOUS 3 Times weekly with dialysis heparin 1,000 unit/mL 3,800 Units injection 3,800 Units INTRALUMINAL 3 Times weekly with dialysis polyethylene glycol 3350 17 g packet (MIRALAX, GLYCOLAX) 17 g ORAL DAILY senna-docusate 8.6-50 mg 1 tablet (SENNA-S) 1 tablet ORAL AT BEDTIME insulin glargine 39 Units pen (long acting) (LANTUS SOLOSTAR, BASAGLAR) 39 Units SUBCUTANEOUS AT BEDTIME metoprolol tartrate (short acting) 12.5 mg tab(s) (LOPRESSOR) 12.5 mg ORAL q 12 H sodium chloride-aloe vera topical nasal gel (AYR GEL w/ALOE) INTRANASAL PRN albuterol HFA 90 mcg/actuation 2 Puff (PROVENTIL HFA, VENTOLIN HFA) 2 Puff INHALATION q 4 H PRN cloNIDine HCl 0.1 mg tab(s) (CATAPRES) 0.1 mg ORAL TID pantoprazole [address] 40 mg tab(s) (PROTONIX) 40 mg ORAL DAILY dextrose 40 % 15 g 15 g ORAL PRN glucagon 1 mg injection (GLUCAGEN) 1 mg INTRAMUSCULAR PRN dextrose 50% in water 25 mL syringe 12.5 g INTRAVENOUS PRN OBJECTIVE PHYSICAL EXAM: BP 118/52 Pulse (!) 58 Temp 36.7 ?C (98.1 ?F) (Oral) Resp 18 Ht 165.1 cm (5' 5) Wt 98.5 kg (217 lb 2.5 oz) SpO2 98% BMI 36.14 kg/m2 Body mass index is 36.14 kg/(m2). GENERAL: Alert, no distress, cooperative Resp: CTAB Abd: Nontender Extremities: miinimal edema CV: noraml heart sounds no murmur noted. DATA: Diagnostic tests reviewed for today's visit: ASSESSMENT AND PLAN: 1- JORGE on CKD. 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 HD MWF. Last HGD session was yesterday 12/15 2nd session of PEX tomorrow. Will continue total of 5 sessions every other day Kidney Bx yesterday 12/15 if GPA present will do pulse steroids, rituximab and plasmapheresis for 2 weeks tota ?? 2-Anemia: HGB - 8.4. continue TEZ with HD session ?? 3- HTN: BP is well controlled. Continue the same meds ?? 4- DM: glycemic control is as per the primary service ?? DVT Prophylaxis: Intermittent pneumatic compression device (IPCD) SIGNATURE: Feroz Moody Ms PATIENT NAME: Michael Garcia DATE: December 16, 2017 TIME: 10:13 AM PAGER/CONTACT #: Janeth Pfeiffer, RN, RN 12/16/2017 11:53 AM Signed Definity IVP given for Image enhancement per protocol. No signs of infiltration, tolerated well Manju Quiroga, RN, RN 12/16/2017 12:36 PM Signed Received pt in dialysis LIC Diaysis catheter not workind Dr Jenkins notified Order placed for IR to change catheter Will monitor closely Progress Notes ([facility]): Rose Crespo RN 12/11/2017 11:01 AM Signed 1) [facility]- reports patient was discharged from hospital on 12-09-17, and she did start of care today with patient. Will see 1 x this week, then 2 x's week for 2 weeks, then 1 x week for 6 weeks, for diagnoses and medication education. PT and OT will do an evaluation. Patient is still getting dialysis MWF. 2) No new medications, but Jeff notes hydralazine is not on patient's discharge instructions and noted it is on pcp's list as hydralazine 100 mg tid. Asking pcp to advise. Simin Duarte RN 12/12/2017 5:09 PM Signed Pt was admitted to [facility] today. Discard note. PROGRESS Observed: 12/10/2017 Status: COMPLETED Source: [place] 4:50 PM [facility] REPOSITORY O ID: [id number] Author: Simin Villarreal Service: (none) Author Type: Registered Nurse Type: Progress Notes Filed: 12/12/2017 5:09 PM Note Text: PRIMARY CARE COORDINATION QUICK NOTE Provider Action/FYI Pt admitted to [facility] this afternoon due to kidney inflammation per . Patient identified by name and date . Pt was home but after dialysis, she was sent to [facility] for admission. No notes available yet- will follow for D/C. Simin Villarreal RN Ambulatory Lidar Technician Internal Medicine [facility] 12 LEAD ELECTROCARDIOGRAM Observed: 12/10/2017 Status: F Source: [place] 1:47 PM [facility] REPOSIT[facility] Cardiovascular Services [address] [place] [address] 12 Lead EKG 12/05/17 2314 MR#: [id number] Acct: [id number] Name: MICHAEL GARCIA Rep #: [id number] : 1945 72 From: Darien Mcclendon MD Attending Dr: Irene Wilson MD Status: DIS IN Ordering Dr: Naun Wilhelm MD Date: 12/05/17 Location: U Sex: F C Admitted: 11/27/17 Test Reason : RHYTHM CHANGE Blood Pressure : / mmHG Vent. Rate : 064 BPM Atrial Rate : 064 BPM P-R Int : 144 ms QRS Dur : 082 ms QT Int : 420 ms P-R-T Axes : 059 024 043 degrees QTc Int : 433 ms Normal sinus rhythm Normal ECG When compared with ECG of 05-DEC-2017 18:49, MANUAL COMPARISON REQUIRED, DATA IS UNCONFIRMED Confirmed by DARIEN MCCLENDON MD ([id number]), food expeditor HONORIO SHEFFIELD ([id number]) on 12/10/2017 1:47:12 PM Referred By: SANDEE Confirmed By:DARIEN MCCLENDON MD 12/10/17 1347 Date Darien Mcclendon MD CC: Naun Wilhelm MD; Mat Duffy MD Signed 12 LEAD ELECTROCARDIOGRAM Observed: 12/10/2017 Status: F Source: [place] 1:24 PM [facility] RE[facility] Cardiovascular Services [address] [place] [address] 12 Lead EKG 12/03/17 0349 MR#: [id number] Acct: [id number] Name: MICHAEL GARCIA Rep #: [id number] : 1945 72 From: Darien Mcclendon MD Attending Dr: Irene Wilson MD Status: DIS IN Ordering Dr: Jeevan Machado MD Date: 12/05/17 Location: [facility] Sex: F C Admitted: 11/27/17 Test Reason : CP Blood Pressure : / mmHG Vent. Rate : 053 BPM Atrial Rate : 053 BPM P-R Int : 156 ms QRS Dur : 086 ms QT Int : 532 ms P-R-T Axes : 000 084 142 degrees QTc Int : 499 ms Sinus bradycardia Lateral infarct , age undetermined T wave abnormality, consider anterior ischemia Abnormal ECG When compared with ECG of 29-NOV-2017 10:45, MANUAL COMPARISON REQUIRED, DATA IS UNCONFIRMED Confirmed by DANELLE LOONEY, DARIEN ([id number]), food expeditor HONORIO SHEFFIELD ([id number]) on 12/10/2017 1:24:32 PM Referred By: DR ALVARADO Confirmed By:DARIEN MCCLENDON MD 12/10/17 1324 Date Darien Mcclendon MD CC: Jeevan Machado MD; Mat Duffy MD Signed [facility] Observed: 12/10/2017 Status: COMPLETED Source: [place] 12:00 AM [facility] REPOSITORY Patient Outreach (INTMWS) MICHAEL GARCIA ([id number]) 1945 F BLD Date Time Provider Department 12/10/17 SIMIN AQUINOWS During your visit today, we recorded the following information about you: Simin Duarte RN 12/12/2017 5:09 PM Signed PRIMARY CARE COORDINATION QUICK NOTE Provider Action/FYI Pt admitted to [facility] this afternoon due to ANDquot;kidney inflammationANDquot; per . Patient identified by name and date . Pt was home but after dialysis, she was sent to [facility] for admission. No notes available yet- will follow for D/C. Simin Villarreal RN Ambulatory Lidar Technician Internal Medicine [facility] Allergies As of Date: 12/10/2017 (No Known Allergies) Date Reviewed: 11/14/2017 Reviewed by: Evangelina Mckeon) - Fully Assessed Reason for Visit: Lidar Technician Hospital Follow Up [3612] Cmt: [facility] 11/27/17- 12/09/17 Prescriptions as of 12/10/2017 Sig: FERREX 150 MG IRON CAPSULE Take 1 capsule by mouth once * PANTOPRAZOLE 40 MG TABLET,DEL* Take 1 tablet by mouth once d* LANTUS SOLOSTAR U-100 INSULIN* INJECT 39 UNITS SUBCUTANEOUS* NOVOLOG FLEXPEN U-100 INSULIN* INJECT 4 TIMES DAILY DIREC* COMPOUNDED PRESCRIPTION Portable oxygen Dx: Hypoxemia* ERGOCALCIFEROL (VITAMIN D2) 5* Take 1 capsule by mouth once * GABAPENTIN 300 MG CAPSULE Take 1 capsule by mouth daily* HYDRALAZINE 100 MG TABLET Take 1 tablet by mouth three * CLONIDINE HCL 0.1 MG TABLET Take 1 tablet by mouth three * METOPROLOL SUCCINATE ER 25 MG* Take 1 tablet by mouth once d* FUROSEMIDE 40 MG TABLET Take 1.5 tablets by mouth onc* ATORVASTATIN 40 MG TABLET Take 1 tablet by mouth daily * X LIDOCAINE HCL 2 % TOPICAL CRE* Apply to affected area. ALBUTEROL SULFATE HFA 90 MCG/* Inhale 2 Puffs as instructed * X TIOTROPIUM BROMIDE 18 MCG CAP* Inhale 1 capsule as instructe* Problem List As Of Date 12/10/2017 Noted Resolved 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 Essential hypertension with goal blood pressure*INVALID FOR* Ischemic ulcer of finger with necrosis of muscl*INVALID FOR*05/05/2017 More... 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] INVALID FOR* CKD (chronic kidney disease) stage 3, GFR 30-59*INVALID FOR* Hypoxemia [R09.02] INVALID FOR* Acute diastolic CHF (congestive heart failure) *INVALID FOR* Anemia in stage 3 chronic kidney disease [N18.3*INVALID FOR* Encounter Status:Closed by SIMIN VILLARREAL on 12/12/17 DISCHARGE SUMMARY Observed: 12/09/2017 Status: F Source: [place] 3:34 PM [facility] RE[facility] Medical Records Department [address] [place] [address] Discharge Summary 12/09/17 1511 MR#: [id number] Acct: [id number] Name: MICHAEL GARCIA Rep #: [id number] : 1945 72 From: Irene Wilson MD PCP: Mat Duffy MD Status: ADM IN Y Location: [place] [address] Discharge Date and Diagnosis - Problem List Patient Problems: Active and Suspected Problems (Last Updated 11/27/17 @ 08:28 by Fahad Sesay MD) Paroxysmal A-fib (Acute) JORGE (acute kidney injury) (Acute) Date of Admission: 11/27/17 Date of Discharge: 12/09/17 - Primary Discharge Diagnosis Active and Suspected Problems (Last Updated 11/27/17 @ 08:28 by Fahad Sesay MD) Paroxysmal A-fib (Acute) JORGE (acute kidney injury) (Acute) - Secondary Discharge Diagnosis Chronic Problems (Last Updated 11/27/17 @ 08:28 by Fahad Sesay MD) Valvular heart disease (Chronic) End stage COPD (Chronic) Pulmonary hypertension (Chronic) HTN (hypertension) (Chronic) 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) S/P craniotomy (Chronic) For intracerebral hemorrhage Obesity (BMI 30.0-34.9) (Chronic) Morbid obesity (Chronic) CKD (chronic kidney disease) stage 3, GFR 30-59 ml/min (Chronic) Obstructive sleep apnea (Chronic) Untreated Type 2 diabetes mellitus (Chronic) History of cerebral hemorrhage (Chronic) Anemia (Chronic) Aortic stenosis, mild (Chronic) Mitral stenosis (Chronic) mild Stroke (Chronic) Hyperlipidemia (Chronic) Vitamin D deficiency (Chronic) Neuropathic pain (Chronic) Hospital Course and Treatment Operations: None Summary of Care Provided: The patient is a 72 year old F who presented to the ED because of chest pain. Her symptoms started 3-4 days ago prior to her presentation with left- sided chest pain, sharp pain, 7 out of 10 in severity, extends to the left lateral chest, aggravated by coughing or taking a deep breath, associated with minimal shortness of breath and minimal cough and without relieving factors. Chest x-ray showed left side pleural effusion with possible underlying infiltrate or consolidation. She was admitted for left side pleural effusion, suspected community-acquired pneumonia, acute on chronic hypoxic respiratory failure, mild hyperkalemia and acute cystitis. Shortly after admission to the floor, patient developed new onset A. fib with RVR, and Cardizem but ultimately changed to amiodarone. She will had progressive acute kidney injury superimposed on stage III chronic kidney disease, she ultimately required hemodialysis, tunneled dialysis catheter was placed and she will continue hemodialysis as an outpatient. Patient was discharged home in a stable condition. Recommended ECF placement but it was declined and family. 1. Community-acquired pneumonia ; she was was adequately treated with IV antibiotics. 2. Acute kidney injury superimposed on patient's CKD stage III ; catheter placed 11/11/2017 an she will continue outpatient hemodialysis. 3. Moderate left-sided pleural effusion due to volume overload, improved with dialysis . 4. Acute on chronic hypoxic respiratory failure secondary ; continue on supplemental oxygen . 5. Anemia secondary to anemia of chronic disorder patient transfused with 1 unit PRBC . 6. New onset A. fib with RVR: echo showed normal ejection fraction, the patient is on amiodarone PO, her coagulation was discontinued due to worsening anemia. she is on full dose enteric-coated aspirin. 7. Acute cystitis with Klebsiella ; treated with Levaquin based on sensitivities. 8. Hypertension; this is controlled. 9. Diabetes mellitus type 2; continue on Lantus and regular insulin Physical exam at the time of discharge; vital signs were stable. she was alert and oriented to time place and person. she did not appear to be any form of distress. S1 and S2 heard no murmur or gallop Lung exam was clear to auscultation with no adventitious sounds. Abdomen was soft nontender with normal bowel sounds. extremity exam did not reveal any edema, palpable pulses bilaterally. Neurologic exam was grossly intact. Discharge Diet: No Restrictions Discharge Activity: Return to Normal Activity Home Medications: Medications to take at Discharge Atorvastatin Calcium [Lipitor] 40 mg PO QHS 11/27/17 Clonidine HCl 0.1 mg PO TID 11/27/17 Ergocalciferol [Vitamin D] 50,000 unit PO QMONTH 11/27/17 Furosemide [Lasix] 60 mg PO DAILY 11/27/17 Gabapentin [Neurontin] 300 mg PO QHS 11/27/17 Insulin Aspart [Novolog Flexpen] units SC 11/27/17 Insulin Glargine,Hum.rec.anlog [Lantus] 39 unit SC BID 11/27/17 Iron Polysaccharide Complex [Ferrex 150] 150 mg PO DAILYCM 11/27/17 Metoprolol Succinate [Toprol Xl] 25 mg PO DAILY 11/27/17 Pantoprazole Sodium [Protonix] 40 mg PO DAILY 11/27/17 Amiodarone HCl [Cordarone] 200 mg PO DAILY #30 tab 12/09/17 Aspirin E.C. [Ecotrin] 325 mg PO DAILY@0800 #30 tab 12/09/17 Iron Polysaccharide Complex [Ferrex 150] 150 mg PO DAILYCM capsule 12/09/17 Metoprolol Tartrate [Lopressor (beta stephania)] 25 mg PO BID #60 tablet 12/09/17 Following Prescrptions Were Given to Patient: Amiodarone HCl [Cordarone] 200 mg PO DAILY #30 tab Aspirin E.C. [Ecotrin] 325 mg PO DAILY@0800 #30 tab Metoprolol Tartrate [Lopressor (beta stephania)] 25 mg PO BID #60 tablet Primary Care Physician: Mat Duffy MD [Primary Care Provider] - Within 2 Weeks Please Follow Up With: Rocael Valencia MD When: Friday Disposition: Home Patient Condition:: Stable Meaningful Use Info Meaningful Use Diagnoses (Choose all that apply): None applicable Code Visit Inpatient E AND M: 21541 Disch Hosp 12/09/17 1534 <Electronically signed by Irene Wilson MD> Date Irene Wilson MD Cosigner Signature (if applicable): Date CC: Irene Wilson MD; Mat Duffy MD Signed DISCHARGE INSTRUCTION Observed: 12/09/2017 Status: F Source: [place] 3:11 PM [facility] [place] REPOSIT[facility] Medical Records Department [address] [place] [address] Instructions for Home/Discharge Instructions 12/09/17 1509 MR#: [id number] Acct: [id number] Name: MICHAEL GARCIA Rep #: [id number] : 1945 72 From: Irene Wilson MD PCP: Mat Duffy MD Status: ADM IN - Discharge Diagnoses Current Active Problems: Current Active and Chronic Problems (Last Updated 11/27/17 @ 08:28 by Fahad Sesay MD) Paroxysmal A-fib (Acute) Valvular heart disease (Chronic) Pulmonary hypertension (Chronic) JORGE (acute kidney injury) (Acute) You will use the following diet at home:: Renal (restricted protein/sodium) Discharge Activity: Return to Normal Activity Allergies/Adverse Reactions: Allergies No Known Allergies Allergy (Verified 11/27/17 05:53) Medications to take at Discharge Atorvastatin Calcium [Lipitor] 40 mg PO QHS 11/27/17 Clonidine HCl 0.1 mg PO TID 11/27/17 Ergocalciferol [Vitamin D] 50,000 unit PO QMONTH 11/27/17 Furosemide [Lasix] 60 mg PO DAILY 11/27/17 Gabapentin [Neurontin] 300 mg PO QHS 11/27/17 Insulin Aspart [Novolog Flexpen] units SC 11/27/17 Insulin Glargine,Hum.rec.anlog [Lantus] 39 unit SC BID 11/27/17 Iron Polysaccharide Complex [Ferrex 150] 150 mg PO DAILYCM 11/27/17 Metoprolol Succinate [Toprol Xl] 25 mg PO DAILY 11/27/17 Pantoprazole Sodium [Protonix] 40 mg PO DAILY 11/27/17 Amiodarone HCl [Cordarone] 200 mg PO DAILY #30 tab 12/09/17 Aspirin E.C. [Ecotrin] 325 mg PO DAILY@0800 #30 tab 12/09/17 Iron Polysaccharide Complex [Ferrex 150] 150 mg PO DAILYCM capsule 12/09/17 Metoprolol Tartrate [Lopressor (beta stephania)] 25 mg PO BID #60 tablet 12/09/17 The following prescriptions were given: Amiodarone HCl [Cordarone] 200 mg PO DAILY #30 tab Aspirin E.C. [Ecotrin] 325 mg PO DAILY@0800 #30 tab Metoprolol Tartrate [Lopressor (beta stephania)] 25 mg PO BID #60 tablet Primary Care Physician: Mat Duffy MD [Primary Care Provider] - Within 2 Weeks 12/09/17 1511 <Electronically signed by Irene Wilson MD> Date Irene Wilson MD CC: Nidia Jones MD; Rocael Valencia MD; Ortiz Markham MD; Matilde Hayward MD; Anoop Angeles MD; Mat Duffy MD BEDSIDE GLUCOSE Collected: 12/09/2017 Status: F Source: [place] 11:15 AM [facility] RE[facility] TYPE CODE TESTS RESULT OUT OF REFERENCE UNITS RANGE LAB L501.080 70-110 mg/dL High BEDSIDE GLU 262 Result Comment: MANAGEMENT OF PATIENT CARE PER NURSING PROTOCOL Performed By: #### L501.080 #### [facility] Point of Care [address] [place] [address] BEDSIDE GLUCOSE Collected: 12/09/2017 Status: F Source: [place] 6:44 AM [facility] TYPE CODE TESTS RESULT OUT OF REFERENCE UNITS RANGE LAB L501.080 70-110 mg/dL High BEDSIDE GLU 153 Result Comment: Insulin Given MANAGEMENT OF PATIENT CARE PER NURSING PROTOCOL Performed By: #### L501.080 #### [facility] Point of Care [address] [place] [address] BASIC METABOLIC Collected: 12/09/2017 Status: F Source: [place] PROFILE (BMP) 5:35 AM [facility] TYPE CODE TESTS RESULT OUT OF RANGE REFERENCE UNITS LAB L501.0100 74-106 mg/dL High GLU 142 Result Comment: Fasting Glucose result greater than or equal to 126 mg/dL suggests DIABETES MELLITUS per A.D.A. criteria. Please note revised GLUCOSE reference range effective 2017. LAB L501.1000 7-18 mg/dL High BUN 46 LAB L501.1100 0.55-1.02 mg/dL High CREAT,SERUM 3.16 Result Comment: The validity of the calculated GFR AND GFRAA in patients over 70 years has not been determined. Clinical correlation is essential. LAB L501.1110 >60 mL/min Low EST GFR 15 Result Comment: Non- GFR Calc LAB L501.1115 >60 mL/min Low EST GFR - AA 19 Result Comment: GFR Calc LAB L501.1255 ml/min Normal Estimated CRCL 14.91 LAB L501.1300 10-20 RATIO Normal BUN/CRE 14.6 LAB L501.2200 8.5-10 mg/dL Low .1 CA 8.0 LAB L501.5300 136-14 mmol/L Low 5 NA 134 LAB L501.5600 3.5-5. mmol/L Normal 1 K 4.3 LAB L501.5900 98-107 mmol/L Low CL 95 LAB L501.6100 21.0-3 mmol/L Normal 2.0 CO2 31.0 LAB L501.6200 5-15 Normal GAP 8 Performed By: #### L500.2500 #### [facility] [address] [facility] [place], [place], [id number] BEDSIDE GLUCOSE Collected: 12/08/2017 Status: F Source: [place] 10:18 PM [facility] TYPE CODE TESTS RESULT OUT OF REFERENCE UNITS RANGE LAB L501.080 70-110 mg/dL High BEDSIDE GLU 238 Result Comment: Insulin Given MANAGEMENT OF PATIENT CARE PER NURSING PROTOCOL Performed By: #### L501.080 #### [facility] Point of Care [address] [place] [address] BEDSIDE GLUCOSE Collected: 12/08/2017 Status: F Source: [place] 5:54 PM [facility] TYPE CODE TESTS RESULT OUT OF REFERENCE UNITS RANGE LAB L501.080 70-110 mg/dL High BEDSIDE GLU 121 Result Comment: MANAGEMENT OF PATIENT CARE PER NURSING PROTOCOL Performed By: #### L501.080 #### [facility] Point of Care [address] [place], [place] [id number] OPERATIVE REPORT Observed: 12/08/2017 Status: F Source: [place] 5:08 PM [facility] Medical Records Department [address] [place] [address] Operative Report 12/08/17 1703 MR#: [id number] Acct: [id number] Name: MICHAEL GARCIA Rep #: [id number] : 1945 72 From: Anoop Angeles MD PCP: Mat Duffy MD Status: ADM IN Y Location: [address] Problem List (1) JORGE (acute kidney injury) Status: Acute Report of Operation Date of Procedure: 12/08/17 Pre-Operative Diagnosis: Acute kidney injury Post-Operative Diagnosis: Same Surgery/Procedure Performed:: Left internal jugular 23 cm pre-curved tunneled palindrome hemodialysis catheter placement. Reference number [id number]. Lot #[id number] Description of Surgical Findings:: Timeout and informed consent was obtained. 72-year-old female was taken the operating. He was placed upon the table. She underwent monitored anesthesia care. Ancef 2 g are given intravenously. The left neck and chest were sterilely prepped and draped. 1% lidocaine mixed 50-50 with 0.5% Marcaine was used as local anesthetic. A total of 11 cc was used. Ultrasound was used to identify the left internal jugular vein. Local was instilled. Micropuncture needle was inserted under ultrasound guidance. Micropuncture wire inserted. Fluoroscopy demonstrated good positioning. Local was instilled down upon the left chest wall. An exit site was selected. The 23 cm pre-curved palindrome catheter was tunneled from the chest of the neck. The micropuncture sheath was placed over the wire. An 035 J-wire was inserted. Fluoroscopy demonstrated good position. Serial dilatation was performed. The sheath dilator was inserted. The dilator wire removed. The catheter was advanced through the sheath. The sheath was split. The catheter was positioned nicely at the SVC atrial junction. It was secured to skin with interrupted 3-0 nylon. The neck site was closed with interrupted 5-0 Vicryl subdermal stitch. Steri-Strips Telfa OpSite dressing applied to the neck. Silver impregnated dressing applied to the exit site. The catheter was aspirated. It was then flushed with 2 cc of heparinized saline per channel. She was subsequently taken to the recovery or insect condition with minimal blood loss no specimens no drains. Stat portable chest x-ray is pending. No apparent complication. Anoop Angeles M.D., Rigo.Mehrdad.C.S. Type of Anesthesia:: Local MAC Anesthesiologist: Ghulam Boateng 12/08/171707 <Electronically signed by Anoop Angeles MD> Date Anoop Angeles MD CC: Nidia Jones MD; Rocael Valencia MD; Ortiz Markham MD; Matilde Hayward MD; Anoop Angeles MD; Mat Duffy MD Signed CONSULTATION Observed: 12/08/2017 Status: F Source: [place] 5:03 PM [facility] [place] [facility] Medical Records Department [address] [place] [id number] Consultation 12/08/17 1302 MR#: [id number] Acct: [id number] Name: MICHAEL GARCIA Rep #: [id number] : 1945 72 From: Evangelina Hendricks PA-C PCP: Mat Duffy MD Status: ADM IN Y [id number] ADDENDUM by Anoop Angeles MD on 12/08/17 at 1703 Code Visit I have reviewed this patient's history and physical examination and concur with the above items as noted per DEENA Dumont. The patient has had dialysis today and the temporary catheter just recently been removed from right IJ site. Because of this contamination I am left with approaching her for a tunneled catheter via the left internal jugular. The patient was present with her . We discussed the technique, benefits, risks, alternatives. Clearly the patient has had increased procedural risk because of her multiple medical comorbidities. She has been held n.p.o. Her heparin has been held. She does remain on significant O2 therapy. Utilizing ultrasound guidance. She will get preoperative dosing of antibiotics. This will be performed with mostly local anesthetic and monitored anesthesia care. Anoop Angeles M.D., Rigo.A.C.S. 12/08/17 1703 <Electronically signed by Anoop Angeles MD> Date Anoop Angeles MD cc: Nidia Jones MD; Rocael Valencia MD; Ortiz Markham MD; Matilde Hayward MD; Anoop Angeles MD; Mat Duffy MD * Signed Problem List (1) JORGE (acute kidney injury) Status: Acute Reason for Consult Date of Consultation: 12/08/17 Reason for Consultation: Acute renal failure. In need of tunneled dialysis catheter placement. History of Present Illness: The patient is a 72 year old F who presented to the ED on 11/27 with pneumonia symptoms i.e. increased shortness of breath, weakness, nonproductive cough. Patient has multiple comorbidities. She has been evaluated by nephrology, Dr. Romeo, as an outpatient for stage III renal disease. Patient has a history of diabetes type II. Patient denies previous dialysis. Patient had a temporary right IJ dialysis catheter placed by Josi Hickman NP on 12/03/17. Patient notes she is on oxygen at home via nasal canula, 3.5 liters. She follows with Dr. Valencia. She also has a history of sleep apnea. Patient denies being seen previously by a print producer. Per patient , her PCP would like to refer the patient to Dr. Mcclendon for history of cardiac murmur. Patient was noted to have a new onset of Atrial fibrillation this hospitalization. Patient is currently on Heparin twice a day in the hospital. She denies previous myocardial infarction and cardiac stents. Patient has a history of intracranial hemorrhage type stroke in 2016. She was transferred to the [facility] for treatment. Dr. West is her neurologist. She notes she had completed treatment with him and no longer has to follow-up with him. Patient notes she has a balancing deficit which she was told that this may last for approximately 4-5 years. Patient walks with a walker at home. Patient is legally blind. Patient's previous surgeries include gallbladder, bilateral carpal tunnel, tonsils, s/p craniotomy. Patient's creatinine today was 4.26. Past Medical History Past Medical History (Chronic Problems): Chronic Problems (Last Updated 11/27/17 @ 08:28 by Fahad Sesay MD) Valvular heart disease (Chronic) End stage COPD (Chronic) Pulmonary hypertension (Chronic) HTN (hypertension) (Chronic) 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) S/P craniotomy (Chronic) For intracerebral hemorrhage Obesity (BMI 30.0-34.9) (Chronic) Morbid obesity (Chronic) CKD (chronic kidney disease) stage 3, GFR 30-59 ml/min (Chronic) Obstructive sleep apnea (Chronic) Untreated Type 2 diabetes mellitus (Chronic) History of cerebral hemorrhage (Chronic) Anemia (Chronic) Aortic stenosis, mild (Chronic) Mitral stenosis (Chronic) mild Stroke (Chronic) Hyperlipidemia (Chronic) Vitamin D deficiency (Chronic) Neuropathic pain (Chronic) Allergies No Known Allergies Allergy (Verified 11/27/17 05:53) Home Medications: Ambulatory Orders Medication Instructions Recorded Surgical History: cholecystectomy, rotator cuff repair, tonsillectomy, - - Craniotomy, bilateral carpal tunnel, Psychiatric History: No pertinent psych hx Lives: Spouse/ Significant Other Smoking Status: Never smoker Tobacco Use: Non-smoker Alcohol: None Drugs: None - *Family History Maternal History Items: Cancer, Diabetes, Renal Disease Paternal History Items: Diabetes, Heart Disease, Renal Disease Review of Systems Constitutional: Denies: Chills, Fever, Weight Change HEENT: Denies: Head Aches, Sinus Congestion, Sinus Drainage Cardiovascular: Reports: Chest Pressure Respiratory: Reports: Cough Gastrointestinal: Denies: Abdominal Pain, Nausea, Vomiting Genitourinary: Denies: Dysuria Musculoskeletal: Denies: Joint Pain, Joint Tenderness Skin: Denies: Rash, Wounds Neurological: Reports: Balance problems. Denies: Focal weakness, Numbness, Tingling Psychiatric: Denies: Anxiety, Depression, Homicidal Ideations, Suicidal Ideations Hematologic/ Lymphatic: Reports: Anemia. Denies: Easy Bruising, Easy Bleeding Patient Problems: Active and Suspected Problems (Last Updated 11/27/17 @ 08:28 by Fahad Sesay MD) Paroxysmal A-fib (Acute) JORGE (acute kidney injury) (Acute) - Physical Exam General: Alert, Oriented x3, Cooperative HEENT: Atraumatic, PERRLA, EOMI, Normocephalic Neck: Supple, No JVD, Negative Carotid Bruits Lungs: Clear to auscultation, Normal air movement Cardiovascular: Regular rate, No murmurs, Bradycardic Abdomen: Soft, Non Tender, Obese Extremities: No edema, Capillary Refill Less than 3 Seconds Skin: No rashes, No breakdown Musculoskeletal: No Tenderness to Palpation of Joints or Extremities Neurological: Neuro grossly intact Psych/Mental Status: Appropriate, Depressed Vital Signs Temp Pulse Resp BP Pulse Ox 97.7 F L 56 L 17 116/55 L 95 12/08/17 08:30 12/08/17 11:29 12/08/17 08:30 12/08/17 08:30 12/08/17 08:30 Oxygen Flow Rate 3 Oxygen Delivery Method Nasal Cannula Weight: 229 lb 11.547 oz Body Mass Index (BMI) 35.7 Intake and Output for Last 24 Hours Intake Total 480 / 480 360 / 360 75 / 75 Balance 480 / 480 360 / 360 75 / 75 Laboratory Tests Past 24 Hrs WBC 5.1 RBC 3.03 L Hgb 8.7 L Hct 28.2 L MCV 93.1 MCH 28.7 MCHC 30.9 L RDW 15.5 H RDW Differential 52.3 H POC Glucose POC Glucose 139 H 163 H 218 H POC Glucose 204 H Assessment/Plan Active and Suspected Problems (Last Updated 11/27/17 @ 08:28 by Fahad Sesay MD) Paroxysmal A-fib (Acute) JORGE (acute kidney injury) (Acute) I have been consulted in conjunction with Dr. Angeles for tunneled dialysis catheter placement. Impression: Acute on chronic renal failure Plan: I have discussed this patient with Dr. Angeles. Dr. Angeles will plan to perform a left internal jugular tunneled dialysis catheter placement today. Procedure details, risks and benefits have been explained to the patient and her . Patient has been NPO. Her Heparin was stopped this morning. Following the patient's dialysis treatment today, her temporary right IJ dialysis catheters will need to be removed. Patient and her have had the opportunity to ask and have questions answered. Patient verbally understands and agrees with the proposed plan. Thank you for the opportunity to participate in this patient's care. My recommendations will be available via electronic medical records. 12/08/17 1507 <Electronically signed by Evangelina Hendricks PA-C> Date Evangelina Cuellar Signature (if applicable): Date CC: Nidia Jones MD; Rocael Valencia MD; Ortiz Markham MD; Matilde Hayward MD; Anoop Angeles MD; Mat Duffy MD Signed CHEST 1 VIEW Observed: 12/08/2017 Status: F Source: [place] (PORTABLE) 4:34 PM [facility] [place] [facility] Imaging Services [address] [place] [address] [place] [address] Chest 1 View (Portable) MR#: [id number] Acct: [id number] Name: MICHAEL GARCIA Rep #: [id number] : 1945 F 72 From: Kvng Yung MD PCP: Mat Duffy MD Status: ADM IN Study: Chest 1 View (Portable) Date of Exam: 12/08/17 Exam# [id number] Ordering Dr: Anoop Angeles MD STUDY: X-RAY CHEST REASON FOR EXAM: Female, 72 years old. Line placement verification. TECHNIQUE: Single frontal view of the chest. COMPARISON: December 03, 2017 FINDINGS: Right internal jugular catheter has been removed. A left internal jugular triple-lumen catheter has been inserted with the tip projected over the mid-SVC. No complications are noted. There is a stable interstitial pattern diffusely compared to the prior study. There is no demonstrated pleural abnormality. There is stable cardiomegaly. Normal mediastinum and jose f. Normal visualized pulmonary arteries. Normal visualized aortic arch and descending thoracic aorta. Normal visualized thoracic spine. Normal visualized ribs, clavicles, and shoulders. There is no demonstrated abnormality of the visualized soft tissue structures of the upper abdomen. RAD/Chest 1 View (Portable) IMPRESSION: Stable cardiomegaly with diffuse interstitial pattern. Placement of left internal jugular triple-lumen catheter without complications, with the tip projected into the mid-SVC. Electronically Signed: Kvng Yung MD at 17:47 EST , Service support , CC: Anoop Angeles MD; Mat Duffy MD Business Support Administrator: Signed BEDSIDE GLUCOSE Collected: 12/08/2017 Status: F Source: [place] 11:01 AM [facility] [facility] TYPE CODE TESTS RESULT OUT OF REFERENCE UNITS RANGE LAB L501.080 70-110 mg/dL High BEDSIDE GLU 139 Result Comment: MANAGEMENT OF PATIENT CARE PER NURSING PROTOCOL Performed By: #### L501.080 #### [facility] Point of Care [address] [place] [address] BEDSIDE GLUCOSE Collected: 12/08/2017 Status: F Source: [place] 6:59 AM [facility] TYPE CODE TESTS RESULT OUT OF REFERENCE UNITS RANGE LAB L501.080 70-110 mg/dL High BEDSIDE GLU 163 Result Comment: MANAGEMENT OF PATIENT CARE PER NURSING PROTOCOL Performed By: #### L501.080 #### [facility] Point of Care [address] [place] [address] BASIC METABOLIC Collected: 12/08/2017 Status: F Source: [place] PROFILE (BMP) 5:05 AM [facility] TYPE CODE TESTS RESULT OUT OF RANGE REFERENCE UNITS LAB L501.0100 74-106 mg/dL High GLU 162 Result Comment: Fasting Glucose result greater than or equal to 126 mg/dL suggests DIABETES MELLITUS per A.D.A. criteria. Please note revised GLUCOSE reference range effective 2017. LAB L501.1000 7-18 mg/dL High BUN 70 LAB L501.1100 0.55-1.02 mg/dL High CREAT,SERUM 4.26 Result Comment: The validity of the calculated GFR AND GFRAA in patients over 70 years has not been determined. Clinical correlation is essential. LAB L501.1110 >60 mL/min Low EST GFR 11 Result Comment: Non- GFR Calc LAB L501.1115 >60 mL/min Low EST GFR - AA 13 Result Comment: GFR Calc LAB L501.1255 ml/min Normal Estimated CRCL 11.06 LAB L501.1300 10-20 RATIO Normal BUN/CRE 16.4 LAB L501.2200 8.5-10 mg/dL Low .1 CA 8.3 LAB L501.5300 136-14 mmol/L Normal 5 NA 136 LAB L501.5600 3.5-5. mmol/L Normal 1 K 4.4 LAB L501.5900 98-107 mmol/L Low CL 96 LAB L501.6100 21.0-3 mmol/L Normal 2.0 CO2 30.0 LAB L501.6200 5-15 Normal GAP 10 Performed By: #### L500.2500 #### [facility] [address] [place], [place], [id number] PROTHROMBIN TIME W/INR Collected: 12/08/2017 Status: F Source: [place] 5:05 AM [facility] TYPE CODE TESTS RESULT OUT OF RANGE REFERENCE UNITS LAB L300.4150 11.7-14.9 SECONDS Normal PROTIME 14.0 LAB L300.4200 Normal INR 1.1 Performed By: #### L300.3900, L300.4310 #### [facility] [address] [place], [place], [id number] PARTIAL THROMBOPLAST Collected: 12/08/2017 Status: F Source: [place] TIME 5:05 AM [facility] TYPE CODE TESTS RESULT OUT OF REFERENCE UNITS RANGE LAB L300.4310 24.1-36.2 Seconds High PTT 42.8 Performed By: #### L300.3900, L300.4310 #### [facility] [address] [place], [address] CBC-COMPLETE BLOOD CNT Collected: 12/08/2017 Status: F Source: [place] NO DIFF 5:05 AM [facility] TYPE CODE TESTS RESULT OUT OF RANGE REFERENCE UNITS LAB L100.1000 4.4-11.0 K/mm3 Normal WBC 5.1 LAB L100.1200 4.2-5.4 M/mm3 Low RBC 3.03 LAB L100.1300 12.0-15.0 g/dl Low HGB 8.7 LAB L100.1400 37-47 % Low HCT 28.2 LAB L100.1500 81-99 fL Normal MCV 93.1 LAB L100.1600 27.0-32.0 pg Normal MCH 28.7 LAB L100.1700 32-36 g/gl Low MCHC 30.9 LAB L100.1810 11.6-14.6 % High RDW CV 15.5 LAB L100.1820 35.1-43.9 fl High RDW SD 52.3 LAB L100.1900 150-450 K/mm3 Normal PLT 168 LAB L100.2000 6.2-12.0 fl Normal MPV 9.5 Performed By: #### L100.0500 #### [facility] [address] [place], [place], [id number] BEDSIDE GLUCOSE Collected: 12/07/2017 Status: F Source: [place] 8:59 PM [facility] TYPE CODE TESTS RESULT OUT OF REFERENCE UNITS RANGE LAB L501.080 70-110 mg/dL High BEDSIDE GLU 218 Result Comment: MANAGEMENT OF PATIENT CARE PER NURSING PROTOCOL Performed By: #### L501.080 #### [facility] Point of Care [address] [place], [place] [id number] (592) BEDSIDE GLUCOSE Collected: 12/07/2017 Status: F Source: [place] 4:44 PM [facility] TYPE CODE TESTS RESULT OUT OF REFERENCE UNITS RANGE LAB L501.080 70-110 mg/dL High BEDSIDE GLU 204 Result Comment: MANAGEMENT OF PATIENT CARE PER NURSING PROTOCOL Performed By: #### L501.080 #### [facility] Point of Care [address] [place] [address] BEDSIDE GLUCOSE Collected: 12/07/2017 Status: F Source: [place] 11:31 AM [facility] TYPE CODE TESTS RESULT OUT OF REFERENCE UNITS RANGE LAB L501.080 70-110 mg/dL High BEDSIDE GLU 196 Result Comment: MANAGEMENT OF PATIENT CARE PER NURSING PROTOCOL Performed By: #### L501.080 #### [facility] Point of Care [address] [place] [address] BEDSIDE GLUCOSE Collected: 12/07/2017 Status: F Source: [place] 6:44 AM [facility] TYPE CODE TESTS RESULT OUT OF REFERENCE UNITS RANGE LAB L501.080 70-110 mg/dL High BEDSIDE GLU 115 Result Comment: MANAGEMENT OF PATIENT CARE PER NURSING PROTOCOL Performed By: #### L501.080 #### [facility] Point of Care [address] [place] [address] CBC-COMPLETE BLOOD CNT Collected: 12/07/2017 Status: F Source: [place] NO DIFF 5:14 AM [facility] TYPE CODE TESTS RESULT OUT OF RANGE REFERENCE UNITS LAB L100.1000 4.4-11.0 K/mm3 Normal WBC 5.9 LAB L100.1200 4.2-5.4 M/mm3 Low RBC 3.08 LAB L100.1300 12.0-15.0 g/dl Low HGB 9.1 LAB L100.1400 37-47 % Low HCT 29.2 LAB L100.1500 81-99 fL Normal MCV 94.8 LAB L100.1600 27.0-32.0 pg Normal MCH 29.5 LAB L100.1700 32-36 g/gl Low MCHC 31.2 LAB L100.1810 11.6-14.6 % High RDW CV 15.3 LAB L100.1820 35.1-43.9 fl High RDW SD 50.0 LAB L100.1900 150-450 K/mm3 Normal PLT 182 LAB L100.2000 6.2-12.0 fl Normal MPV 9.4 Performed By: #### L100.0500 #### [facility] [address] [place], [place], [id number] BASIC METABOLIC Collected: 12/07/2017 Status: F Source: [place] PROFILE (BMP) 5:14 AM [facility] TYPE CODE TESTS RESULT OUT OF RANGE REFERENCE UNITS LAB L501.0100 74-106 mg/dL Normal GLU 103 Result Comment: Fasting Glucose result from 100 to 125 mg/dL suggests IMPAIRED HOMEOSTASIS per A.D.A. criteria. Please note revised GLUCOSE reference range effective 2017. LAB L501.1000 7-18 mg/dL High BUN 53 LAB L501.1100 0.55-1.02 mg/dL High CREAT,SERUM 3.79 Result Comment: The validity of the calculated GFR AND GFRAA in patients over 70 years has not been determined. Clinical correlation is essential. LAB L501.1110 >60 mL/min Low EST GFR 13 Result Comment: Non- GFR Calc LAB L501.1115 >60 mL/min Low EST GFR - AA 15 Result Comment: GFR Calc LAB L501.1255 ml/min Normal Estimated CRCL 12.43 LAB L501.1300 10-20 RATIO Normal BUN/CRE 14.0 LAB L501.2200 8.5-10 mg/dL Low .1 CA 8.2 LAB L501.5300 136-14 mmol/L Low 5 NA 135 LAB L501.5600 3.5-5. mmol/L Normal 1 K 4.3 LAB L501.5900 98-107 mmol/L Low CL 96 LAB L501.6100 21.0-3 mmol/L Normal 2.0 CO2 28.0 LAB L501.6200 5-15 Normal GAP 11 Performed By: #### L500.2500, L501.5200 #### [facility] [address] [facility] [place], [place], [id number] MAGNESIUM Collected: 12/07/2017 Status: F Source: [place] 5:14 AM [facility] TYPE CODE TESTS RESULT OUT OF RANGE REFERENCE UNITS LAB L501.5200 1.6-2.6 mg/dL Normal MG 2.2 Result Comment: Please note revised Magnesium reference range effective 2017. Performed By: #### L500.2500, L501.5200 #### [facility] [address] [place], [place], [id number] BEDSIDE GLUCOSE Collected: 12/06/2017 Status: F Source: [place] 8:45 PM [facility] TYPE CODE TESTS RESULT OUT OF REFERENCE UNITS RANGE LAB L501.080 70-110 mg/dL High BEDSIDE GLU 175 Result Comment: MANAGEMENT OF PATIENT CARE PER NURSING PROTOCOL Performed By: #### L501.080 #### [facility] Point of Care [address] [place] [address] BEDSIDE GLUCOSE Collected: 12/06/2017 Status: F Source: [place] 4:48 PM [facility] TYPE CODE TESTS RESULT OUT OF REFERENCE UNITS RANGE LAB L501.080 70-110 mg/dL High BEDSIDE GLU 231 Result Comment: MANAGEMENT OF PATIENT CARE PER NURSING PROTOCOL Performed By: #### L501.080 #### [facility] Point of Care [address] [place] [address] BEDSIDE GLUCOSE Collected: 12/06/2017 Status: F Source: [place] 11:31 AM [facility] TYPE CODE TESTS RESULT OUT OF REFERENCE UNITS RANGE LAB L501.080 70-110 mg/dL High BEDSIDE GLU 240 Result Comment: MANAGEMENT OF PATIENT CARE PER NURSING PROTOCOL Performed By: #### L501.080 #### [facility] Point of Care [address] [facility] [place], [place] [address] CBC-COMPLETE BLOOD CNT Collected: 12/06/2017 Status: F Source: [place] NO DIFF 11:00 AM [facility] TYPE CODE TESTS RESULT OUT OF RANGE REFERENCE UNITS LAB L100.1000 4.4-11.0 K/mm3 Normal WBC 6.4 LAB L100.1200 4.2-5.4 M/mm3 Low RBC 3.14 LAB L100.1300 12.0-15.0 g/dl Low HGB 9.0 LAB L100.1400 37-47 % Low HCT 29.2 LAB L100.1500 81-99 fL Normal MCV 93.0 LAB L100.1600 27.0-32.0 pg Normal MCH 28.7 LAB L100.1700 32-36 g/gl Low MCHC 30.8 LAB L100.1810 11.6-14.6 % High RDW CV 15.9 LAB L100.1820 35.1-43.9 fl High RDW SD 53.1 LAB L100.1900 150-450 K/mm3 Normal PLT 157 LAB L100.2000 6.2-12.0 fl Normal MPV 8.9 Performed By: #### L100.0500 #### [facility] [address] [place], [address] BASIC METABOLIC Collected: 12/06/2017 Status: F Source: [facility]HER PROFILE ([facility]) 11:00 AM [facility] TYPE CODE TESTS RESULT OUT OF RANGE REFERENCE UNITS LAB L501.0100 74-106 mg/dL High GLU 196 Result Comment: Fasting Glucose result greater than or equal to 126 mg/dL suggests DIABETES MELLITUS per A.D.A. criteria. Please note revised GLUCOSE reference range effective 2017. LAB L501.1000 7-18 mg/dL High BUN 39 LAB L501.1100 0.55-1.02 mg/dL High CREAT,SERUM 3.42 Result Comment: The validity of the calculated GFR AND GFRAA in patients over 70 years has not been determined. Clinical correlation is essential. LAB L501.1110 >60 mL/min Low EST GFR 14 Result Comment: Non- GFR Calc LAB L501.1115 >60 mL/min Low EST GFR - AA 17 Result Comment: GFR Calc LAB L501.1255 ml/min Normal Estimated CRCL 13.77 LAB L501.1300 10-20 RATIO Normal BUN/CRE 11.4 LAB L501.2200 8.5-10 mg/dL Low .1 CA 8.2 LAB L501.5300 136-14 mmol/L Low 5 NA 134 LAB L501.5600 3.5-5. mmol/L Normal 1 K 4.3 LAB L501.5900 98-107 mmol/L Low CL 94 LAB L501.6100 21.0-3 mmol/L Normal 2.0 CO2 31.0 LAB L501.6200 5-15 Normal GAP 9 Performed By: #### L500.2500, L501.5200 #### [facility] [address] [place], [place], [address] MAGNESIUM Collected: 12/06/2017 Status: F Source: [facility] 11:00 AM [facility] TYPE CODE TESTS RESULT OUT OF RANGE REFERENCE UNITS LAB L501.5200 1.6-2.6 mg/dL Normal MG 2.1 Result Comment: Please note revised Magnesium reference range effective 2017. Performed By: #### L500.2500, L501.5200 #### [facility] [address] [place], [address] BEDSIDE GLUCOSE Collected: 12/06/2017 Status: F Source: [facility] 6:53 AM [facility] TYPE CODE TESTS RESULT OUT OF RANGE REFERENCE UNITS LAB L501.080 70-110 mg/dL Normal BEDSIDE GLU 101 Result Comment: MANAGEMENT OF PATIENT CARE PER NURSING PROTOCOL Performed By: #### L501.080 #### [facility] Point of Care [address] [place] [address] BEDSIDE GLUCOSE Collected: 12/05/2017 Status: F Source: [facility]HER 9:35 PM [facility] TYPE CODE TESTS RESULT OUT OF REFERENCE UNITS RANGE LAB L501.080 70-110 mg/dL High BEDSIDE GLU 164 Result Comment: MANAGEMENT OF PATIENT CARE PER NURSING PROTOCOL Performed By: #### L501.080 #### [facility] Point of Care [address] [place] [address] BEDSIDE GLUCOSE Collected: 12/05/2017 Status: F Source: [facility]HER 6:24 PM [facility] TYPE CODE TESTS RESULT OUT OF REFERENCE UNITS RANGE LAB L501.080 70-110 mg/dL High BEDSIDE GLU 145 Result Comment: MANAGEMENT OF PATIENT CARE PER NURSING PROTOCOL Performed By: #### L501.080 #### [facility] Point of Care [address] [place] [address] BEDSIDE GLUCOSE Collected: 12/05/2017 Status: F Source: CHRISTOPHER 11:42 AM [facility] REPOSITORY TYPE CODE TESTS RESULT OUT OF REFERENCE UNITS RANGE LAB L501.080 70-110 mg/dL High BEDSIDE GLU 303 Result Comment: MANAGEMENT OF PATIENT CARE PER NURSING PROTOCOL Performed By: #### L501.080 #### [facility] Point of Care [address] [place] [address] BEDSIDE GLUCOSE Collected: 12/05/2017 Status: F Source: CHRISTOPHER 6:39 AM [facility] REPOSITORY TYPE CODE TESTS RESULT OUT OF REFERENCE UNITS RANGE LAB L501.080 70-110 mg/dL High BEDSIDE GLU 156 Result Comment: MANAGEMENT OF PATIENT CARE PER NURSING PROTOCOL Performed By: #### L501.080 #### [facility] Point of Care [address] [place], [place] [address] CBC W/DIFF, AUTOMATED Collected: 12/05/2017 Status: F Source: CHRISTOPHER 5:05 AM [facility] REPOSITORY TYPE CODE TESTS RESULT OUT OF RANGE REFERENCE UNITS LAB L100.1000 4.4-11.0 K/mm3 Normal WBC 7.4 LAB L100.1200 4.2-5.4 M/mm3 Low RBC 3.10 LAB L100.1300 12.0-15.0 g/dl Low HGB 8.9 LAB L100.1400 37-47 % Low HCT 29.8 LAB L100.1500 81-99 fL Normal MCV 96.1 LAB L100.1600 27.0-32.0 pg Normal MCH 28.7 LAB L100.1700 32-36 g/gl Low MCHC 29.9 LAB L100.1810 11.6-14.6 % High RDW CV 15.9 LAB L100.1820 35.1-43.9 fl High RDW SD 55.2 LAB L100.1900 150-450 K/mm3 Normal PLT 186 LAB L100.2000 6.2-12.0 fl Normal MPV 9.6 LAB L100.2100 47-70 % High NEUT% 77.6 LAB L100.2200 19-41 % Low LY% 12.2 LAB L100.2300 0-10 % Normal MONO% 8.0 LAB L100.2400 0-5 % Normal EO% 1.4 LAB L100.2500 0-1 % Normal BASO% 0.3 LAB L100.2550 0.0-0.9 % Normal IM GRAN % 0.500 Result Comment: IG% - Immature Granulocytes (promyelocytes, myelocytes and metamyelocytes) > 1% indicates that a LEFT SHIFT is Present. LAB L100.2620 2.0-7.7 X10 3/uL Normal Absolute Neut 5.7 LAB L100.2720 0.83-4.51 X10 3/ul Normal Absolute Lymph 0.90 Performed By: #### L100.0100 #### [facility] [address] [place], [place], [id number] BASIC METABOLIC Collected: 12/05/2017 Status: F Source: CHRISTOPHER PROFILE (BMP) 5:05 AM [facility] REPOSITORY TYPE CODE TESTS RESULT OUT OF RANGE REFERENCE UNITS LAB L501.0100 74-106 mg/dL High GLU 165 Result Comment: Fasting Glucose result greater than or equal to 126 mg/dL suggests DIABETES MELLITUS per A.D.A. criteria. Please note revised GLUCOSE reference range effective 2017. LAB L501.1000 7-18 mg/dL High BUN 57 LAB L501.1100 0.55-1.02 mg/dL High CREAT,SERUM 4.20 Result Comment: The validity of the calculated GFR AND GFRAA in patients over 70 years has not been determined. Clinical correlation is essential. LAB L501.1110 >60 mL/min Low EST GFR 11 Result Comment: Non- GFR Calc LAB L501.1115 >60 mL/min Low EST GFR - AA 14 Result Comment: GFR Calc LAB L501.1255 ml/min Normal Estimated CRCL 11.22 LAB L501.1300 10-20 RATIO Normal BUN/CRE 13.6 LAB L501.2200 8.5-10 mg/dL Low .1 CA 7.9 LAB L501.5300 136-14 mmol/L Normal 5 NA 138 LAB L501.5600 3.5-5. mmol/L Normal 1 K 4.6 LAB L501.5900 98-107 mmol/L Normal CL 98 LAB L501.6100 21.0-3 mmol/L Normal 2.0 CO2 31.0 LAB L501.6200 5-15 Normal GAP 9 Performed By: #### L500.2500 #### [facility] [address] [facility] [place], [place], [address] BEDSIDE GLUCOSE Collected: 12/04/2017 Status: F Source: CHRISTOPHER 10:00 PM [facility] REPOSITORY TYPE CODE TESTS RESULT OUT OF REFERENCE UNITS RANGE LAB L501.080 70-110 mg/dL High BEDSIDE GLU 264 Result Comment: MANAGEMENT OF PATIENT CARE PER NURSING PROTOCOL Performed By: #### L501.080 #### [facility] Point of Care [address] [place], [place] [address] BEDSIDE GLUCOSE Collected: 12/04/2017 Status: F Source: CHRISTOPHER 4:33 PM [facility] REPOSITORY TYPE CODE TESTS RESULT OUT OF REFERENCE UNITS RANGE LAB L501.080 70-110 mg/dL High BEDSIDE GLU 198 Result Comment: MANAGEMENT OF PATIENT CARE PER NURSING PROTOCOL Performed By: #### L501.080 #### [facility] Point of Care [address] [place] [address] BEDSIDE GLUCOSE Collected: 12/04/2017 Status: F Source: CHRISTOPHER 11:17 AM [facility] REPOSITORY TYPE CODE TESTS RESULT OUT OF REFERENCE UNITS RANGE LAB L501.080 70-110 mg/dL High BEDSIDE GLU 220 Result Comment: MANAGEMENT OF PATIENT CARE PER NURSING PROTOCOL Performed By: #### L501.080 #### [facility] Point of Care [address] [place] [address] BEDSIDE GLUCOSE Collected: 12/04/2017 Status: F Source: CHRISTOPHER 6:38 AM [facility] REPOSITORY TYPE CODE TESTS RESULT OUT OF REFERENCE UNITS RANGE LAB L501.080 70-110 mg/dL High BEDSIDE GLU 132 Result Comment: MANAGEMENT OF PATIENT CARE PER NURSING PROTOCOL Performed By: #### L501.080 #### [facility] Point of Care [address] [place] [address] BASIC METABOLIC Collected: 12/04/2017 Status: F Source: CHRISTOPHER PROFILE (BMP) 5:35 AM [facility] REPOSITORY TYPE CODE TESTS RESULT OUT OF RANGE REFERENCE UNITS LAB L501.0100 74-106 mg/dL High GLU 141 Result Comment: Fasting Glucose result greater than or equal to 126 mg/dL suggests DIABETES MELLITUS per A.D.A. criteria. Please note revised GLUCOSE reference range effective 2017. LAB L501.1000 7-18 mg/dL High BUN 78 LAB L501.1100 0.55-1.02 mg/dL High CREAT,SERUM 4.62 Result Comment: The validity of the calculated GFR AND GFRAA in patients over 70 years has not been determined. Clinical correlation is essential. LAB L501.1110 >60 mL/min Low EST GFR 10 Result Comment: Non- GFR Calc LAB L501.1115 >60 mL/min Low EST GFR - AA 12 Result Comment: GFR Calc LAB L501.1255 ml/min Normal Estimated CRCL 10.20 LAB L501.1300 10-20 RATIO Normal BUN/CRE 16.9 LAB L501.2200 8.5-10 mg/dL Normal .1 CA 8.7 LAB L501.5300 136-14 mmol/L Normal 5 NA 139 LAB L501.5600 3.5-5. mmol/L High 1 K 5.2 LAB L501.5900 98-107 mmol/L Normal CL 101 LAB L501.6100 21.0-3 mmol/L Normal 2.0 CO2 31.0 LAB L501.6200 5-15 Normal GAP 7 Performed By: #### L500.2500 #### [facility] [address] [place], [address] BEDSIDE GLUCOSE Collected: 12/03/2017 Status: F Source: [place] 9:45 PM [facility] REPOSITORY TYPE CODE TESTS RESULT OUT OF REFERENCE UNITS RANGE LAB L501.080 70-110 mg/dL High BEDSIDE GLU 165 Result Comment: MANAGEMENT OF PATIENT CARE PER NURSING PROTOCOL Performed By: #### L501.080 #### [facility] Point of Care [address] [place] [address] BEDSIDE GLUCOSE Collected: 12/03/2017 Status: F Source: [place] 5:17 PM [facility] REPOSITORY TYPE CODE TESTS RESULT OUT OF REFERENCE UNITS RANGE LAB L501.080 70-110 mg/dL High BEDSIDE GLU 140 Result Comment: MANAGEMENT OF PATIENT CARE PER NURSING PROTOCOL Performed By: #### L501.080 #### [facility] Point of Care [address] [facility] [place] [address] OT D/C SUMMARY Observed: 12/03/2017 Status: F Source: [place] 4:38 PM [facility] REPOSITORY [facility] Occup[facility] [address] [place] [address]. [address] [place] [address] Fax REHABILITATION SERVICES DISCHARGE SUMMARY MR#: [id number] Acct: [id number] Name: MICHAEL GARCIA Rep #: [id number] : 1945 72 From: Norbert Burks OTR/L, CHT Referring DrMaritza: Severiano Kumar MD Status: REG RCR Eval Date: Discharge Date: - OT D/C Summary It has been my pleasure to treat MICHAEL GARCIA under orders from Severiano Kumar DR.BANNER for the diagnosis of right hand swelling right hand pain for a total of 4 visit(s). Please see the following information for a summary of their discharge status. - Overall Improvement % Improvement: 95 - Objective Objective/Function: right MCP flex 50. right PIP 75. right wrist 19.5cm. right MCP 20.0cm. pt demo with decrease in swelling and a increase in ROM - pt reports ind. 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 Goal:: pt will report a reduction in pins and needle sensation by D/c - Plan Plan: D/C - D/C Information Discharge Comments: pt was seen for 4 visits- pt was ed on edema control and AROM - today pt demo with a increase grasp ability and increase use of her right hand for daily occupations. pt report no pain and ind with bathing and dressing tasks. pt reports she has no difficutly getting in or out of the car. pt reports 95% improvement. pt has met functional goals in OT and is D/C at this time. If there are questions or concerns regarding this patient's occupational therapy, please fell free to call me at [phone]. Thank you for the referral of this patient. Sincerely, Norbert Burks, OTR/L, CHT <Electronically signed by Norbert Burks OTR/L, CHT> 12/03/17 1638 CC: Severiano Kumar MD; Mat Duffy MD MK Signed HEPATITIS B SURFACE Collected: 12/03/2017 Status: F Source: CHRISTOPHER AG 3:35 PM [facility] REPOSITORY TYPE CODE TESTS RESULT OUT OF RANGE REFERENCE UNITS LAB L3100.0400 Negative Normal HB Negative SURF AG Performed By: #### L3100.0390, L3100.0460, L3100.0480 #### [facility] (refer to report for specific site) refer to report for address and phone number HEPATITIS B CORE AB Collected: 12/03/2017 Status: F Source: CHRISTOPHER TOTAL 3:35 PM [facility] REPOSITORY TYPE CODE TESTS RESULT OUT OF RANGE REFERENCE UNITS LAB L3100.0460 Negative Normal HEP B Negative CORE,TOT Result Comment: Performed at: [facility] [id number] Flavoring Oil Filterer: Ayad Joy PhD, Phone: [phone] Performed By: #### L3100.0390, L3100.0460, L3100.0480 #### [facility] (refer to report for specific site) refer to report for address and phone number HEPATITIS BE AB Collected: 12/03/2017 Status: F Source: CHRISTOPHER 3:35 PM [facility] REPOSITORY TYPE CODE TESTS RESULT OUT OF RANGE REFERENCE UNITS LAB L3100.0480 Negative Normal HEP Negative Be Ab 6635 Performed By: #### L3100.0390, L3100.0460, L3100.0480 #### [facility] (refer to report for specific site) refer to report for address and phone number SHANDRA + PROTEIN ELECT, Collected: 12/03/2017 Status: F Source: CHRISTOPHER SERUM 3:35 PM [facility] REPOSITORY TYPE CODE TESTS RESULT OUT OF RANGE REFERENCE UNITS LAB L3100.3500 6.0-8.5 g/dL Normal PROTEIN,TOTAL 6.9 LAB L3200.7085 037-0825 mg/dL Normal IMMUNO G 1239 LAB L3200.1400 87-352 mg/dL High IMMUNO A 482 LAB L3200.1500 26-217 mg/dL High IMMUNOGL M 427 LAB L3200.1510 2.9-4.4 g/dL Normal ALBUMIN 2.9 LAB L3200.1520 0.0-0.4 g/dL Normal FQIKG-1-PECZ 0.4 LAB L3200.1530 0.4-1.0 g/dL High MDMQS-0-AEKG 1.1 LAB L3200.1540 0.7-1.3 g/dL Normal BETA GLOBULIN 1.0 LAB L3200.1550 0.4-1.8 g/dL Normal GAMMA GLOBULIN 1.5 LAB L3200.1560 Normal M-SPIKE Result Comment: Not Observed LAB L3200.1570 2.2-3.9 g/dL High GLOBULIN, TOTAL 4.0 LAB L3200.1580 0.7-1.7 A/G Normal RATIO 0.8 LAB L3200.1590 . SHANDRA Normal RESULT,S Comment Result Comment: No monoclonality detected. LAB L3200.1594 . Normal NOTE: Comment Result Comment: Protein electrophoresis scan will follow via computer, mail, or x ray developing machine operator delivery. Performed By: #### L3100.3425, L3100.3450, L3300.1200, L3410.0300 #### [facility] (refer to report for specific site) refer to report for address and phone number PROTEIN ELECTROPH, S Collected: 12/03/2017 Status: F Source: CHRISTOPHER 3:35 PM [facility] REPOSITORY TYPE CODE TESTS RESULT OUT OF RANGE REFERENCE UNITS LAB L3100.3600 2.9-4.4 g/dL Low ALBUMIN 2.7 LAB L3100.3700 0.0-0.4 g/dL Normal ALPHA-1 GLOBUL 0.4 LAB L3100.3800 0.4-1.0 g/dL High ALPHA-2 GLOBUL 1.2 LAB L3100.3900 0.7-1.3 g/dL Normal BETA GLOBULIN 1.0 LAB L3100.4000 0.4-1.8 g/dL Normal GAMMA GLOBULIN 1.6 LAB L3100.4110 Normal M-SPIKE Result Comment: Not Observed LAB L3100.4200 2.2-3.9 g/dL GLOBULIN, TOTAL High 4.2 LAB L3100.4300 0.7-1.7 Low A/G RATIO 0.6 LAB L3100.4320 . INTERPRETATION Normal Comment Result Comment: Protein electrophoresis scan will follow via computer, mail, or x ray developing machine operator delivery. LAB L3100.4340 . Normal NOTE: Comment Result Comment: The SPE pattern is suggestive of a subacute inflammatory response. This condition represents an intermediate stage between two possible courses for acute inflammation: total convalescense with a return to normal, or the onset of a chronic inflammatory condition. Performed By: #### L3100.3425, L3100.3450, L3300.1200, L3410.0300 #### [facility] (refer to report for specific site) refer to report for address and phone number ANCA Collected: 12/03/2017 Status: F Source: CHRISTOPHER 3:35 PM [facility] REPOSITORY TYPE CODE TESTS RESULT OUT OF RANGE REFERENCE UNITS LAB L3300.1225 Neg:<1:20 titer CYTOPLASMIC Normal Ab <1:20 LAB L3300.1250 Neg:<1:20 titer High PERINUCLEAR Ab >1:640 Result Comment: The presence of positive fluorescence exhibiting P-ANCA or C-ANCA patterns alone is not specific for the diagnosis of Collin's Granulomatosis (WG) or microscopic polyangiitis. Decisions about treatment should not be based solely on ANCA IFA results. The International ANCA Group Consensus recommends follow up testing of positive sera with both TN- 3 and MPO-ANCA enzyme immunoassays. As many as 5% serum samples are positive only by EIA. Ref. AM J Clin Pathol 1999;111:507-513. LAB L3300.1285 Neg:<1:20 titer Normal Atypical pANCA <1:20 Result Comment: The atypical pANCA pattern has been observed in a significant percentage of patients with ulcerative colitis, primary sclerosing cholangitis and autoimmune hepatitis. Performed By: #### L3100.3425, L3100.3450, L3300.1200, L3410.0300 #### [facility] (refer to report for specific site) refer to report for address and phone number ANTI-DNA (SINGLE) Collected: 12/03/2017 Status: F Source: CHRISTOPHER IGG, AB 3:35 PM [facility] REPOSITORY TYPE CODE TESTS RESULT OUT OF RANGE REFERENCE UNITS LAB L3410.0300 0-19 EU High SS AB 242 [id number] Result Comment: Negative: <20 Borderline: 20 - 25 Positive: >25 Performed at: [facility] [id number] Flavoring Oil Filterer: Ayad Joy PhD, Phone: [phone] Performed at: [facility] [address] [id number] Flavoring Oil Filterer: Chris Simeon MD, Phone: [phone] Performed By: #### L3100.1290, X1554.0837, L7448.8464, S1412.2693 #### [facility] (refer to report for specific site) refer to report for address and phone number 12 LEAD ELECTROCARDIOGRAM Observed: 12/03/2017 Status: F Source: CHRISTOPHER 2:42 PM [facility] REPOSITORY [facility] Cardiovascular Services [address] [place] [address] 12 Lead EKG 11/29/17 1045 MR#: [id number] Acct: [id number] Name: MICHAEL GARCIA Rep #: [id number] : 1945 72 From: Darien Mcclendon MD Attending Dr: Jeevan Machado MD Status: ADM IN Ordering Dr: Fahad Sesya MD Date: 12/03/17 Location: [facility] Sex: F C Admitted: 11/27/17 Test Reason : ROUTINE Blood Pressure : / mmHG Vent. Rate : 058 BPM Atrial Rate : 058 BPM P-R Int : 176 ms QRS Dur : 092 ms QT Int : 482 ms P-R-T Axes : 008 046 061 degrees QTc Int : 473 ms Sinus bradycardia Low voltage QRS T wave abnormality, consider anterior ischemia Prolonged QT Abnormal ECG When compared with ECG of 28-NOV-2017 04:57, MANUAL COMPARISON REQUIRED, DATA IS UNCONFIRMED Confirmed by DARIEN MCCLENDON MD ([id number]), food expeditor HONORIO SHEFFIELD ([id number]) on 12/03/2017 2:42:19 PM Referred By: JACK Confirmed By:DARIEN MCCLENDON MD 12/03/17 1442 Date Darien Mcclendon MD CC: Fahad Sesay; Mat Duffy MD Signed OPERATIVE REPORT Observed: 12/03/2017 Status: F Source: CHRISTOPHER 11:43 AM [facility] REPOSITORY [facility] Medical Records Department [address] [place] [address] Operative Report 12/03/17 1134 MR#: [id number] Acct: [id number] Name: MICHAEL GARCIA Rep #: [id number] : 1945 72 From: Josi JENSEN PCP: Mat Duffy MD Status: ADM IN Y Location: [place] [address] Problem List (1) JORGE (acute kidney injury) Status: Acute Operative Report Date of Procedure: 12/03/17 - Temporary dialysis catheter insertion Temporary dialysis catheter line placement procedure note Indication: Hemodialysis Procedure: A time-out was completed to verify correct patient, indication, medication allergies, procedure, coagulation studies, informed consent signed, and equipment needed. The patient was placed in the supine position for a central line placement to the rt IJ vein. The patients rt neck was prepped using chlorhexidine and a full body sterile drape was applied. 1% lidocaine was used to anesthetize the surrounding skin. A 12fr 16 cm temporary dialysis catheter introduced into the internal jugular vein using the modified Seldinger technique with the assistance of ultrasound. The site was dilated twice in a stepwise fashion. The catheter was threaded smoothly over the guidewire, the guidewire was removed easily, nonpulsatile blood returned. All ports were aspirated of air and flushed with sterile saline, then locked with 1.3 cc of U 1000 heparin. The catheter was sutured in place and covered with an occlusive dressing impregnated with chlorhexidine. Post-procedure: The patient tolerated the procedure well. Vital signs remained stable. EBL 10 cc. No complications. Chest X Ray ordered to confirm tip placement and the absence of pneumothorax. Code Visit Procedures: 56656 Insert Non-tunnel CV Cath 12/03/17 1143 <Electronically signed by Josi JENSEN> Date Josi JENSEN CC: Nidia Jones MD; Rocael Valencia MD; Josi Hickman; Ortiz Markham MD; Matilde Hayward MD; Mat Duffy MD Signed BEDSIDE GLUCOSE Collected: 12/03/2017 Status: F Source: CHRISTOPHER 11:43 AM [facility] REPOSITORY TYPE CODE TESTS RESULT OUT OF REFERENCE UNITS RANGE LAB L501.080 70-110 mg/dL High BEDSIDE GLU 265 Result Comment: MANAGEMENT OF PATIENT CARE PER NURSING PROTOCOL Performed By: #### L501.080 #### [facility] Point of Care [address] [place], [place] [address] CHEST 1 VIEW Observed: 12/03/2017 Status: F Source: CHRISTOPHER (PORTABLE) 11:29 AM [facility] REPOSITORY [facility] Imaging Services [address] [place] [address] Chest 1 View (Portable) MR#: [id number] Acct: [id number] Name: MICHAEL GARCIA Rep #: [id number] : 1945 F 72 From: Brett Arcos MD PCP: Mat Duffy MD Status: ADM IN Study: Chest 1 View (Portable) Date of Exam: 12/03/17 Exam# [id number] Ordering Dr: Matilde Hayward MD STUDY: X-RAY CHEST REASON FOR EXAM: Female, 72 years old. Post central line placement. TECHNIQUE: Single AP portable view of the chest. COMPARISON: Comparison is made with prior examination dated December 03, 2017 at 7:59 AM. FINDINGS: A right-sided internal jugular venous catheter has been placed. The tip is in the proximal portion of the superior vena cava. EKG electrodes are seen. The remainder the examination is unchanged. RAD/Chest 1 View (Portable) IMPRESSION: The tip of the right internal jugular venous catheter is at the junction of the superior vena cava and right atrium. Electronically Signed: Brett Arcos MD at 12:44 EST Tel [phone], Service support , CC: Matilde Hayward MD; Mat Duffy MD Business Support Administrator: Signed CHEST 1 VIEW Observed: 12/03/2017 Status: F Source: CHRISTOPHER (PORTABLE) 6:57 AM [facility] REPOSITORY [facility] Imaging Services [address] [place] [address] Chest 1 View (Portable) MR#: [id number] Acct: [id number] Name: MICHAEL GARCIA Rep #: [id number] : 1945 F 72 From: Brett Arcos MD PCP: Mat Duffy MD Status: ADM IN Study: Chest 1 View (Portable) Date of Exam: 12/03/17 Exam# [id number] Ordering Dr: Aydin Carroll DO STUDY: X-RAY CHEST REASON FOR EXAM: Female, 72 years old. Increasing shortness of breath. TECHNIQUE: Single AP portable view of the chest. COMPARISON: Comparison is made with prior study dated November 28, 2017. FINDINGS: EKG electrodes are seen. Stable pleural parenchymal changes at the left lung base. Mild increased markings at the left lung base. Findings suggestive of a possible atelectasis and/or infiltrate in the left upper lobe. This is superimposed on CHF. There is moderate cardiac enlargement. Calcification of the mitral valve annulus. Normal mediastinum and jose f. Normal visualized pulmonary arteries. There is atherosclerotic calcification of the aortic arch with tortuosity. Normal visualized thoracic spine. Normal visualized ribs, clavicles, and shoulders. There is no demonstrated abnormality of the visualized soft tissue structures of the upper abdomen. RAD/Chest 1 View (Portable) IMPRESSION: Stable pleural parenchymal changes at the left lung base with mild degree of CHF. Questionable early left upper lobe infiltrate. Blunting of left costophrenic angle. Electronically Signed: Brett Arcos MD at 10:25 EST Tel [phone], Service support , CC: Aydin Carroll D.O.; Mat Duffy MD Business Support Administrator: Signed BEDSIDE GLUCOSE Collected: 12/03/2017 Status: F Source: CHRISTOPHER 6:55 AM [facility] REPOSITORY TYPE CODE TESTS RESULT OUT OF REFERENCE UNITS RANGE LAB L501.080 70-110 mg/dL High BEDSIDE GLU 144 Result Comment: MANAGEMENT OF PATIENT CARE PER NURSING PROTOCOL Performed By: #### L501.080 #### [facility] Point [place] [address] CBC W/DIFF, AUTOMATED Collected: 12/03/2017 Status: F Source: [place] 5:15 AM [facility] REPOSITORY TYPE CODE TESTS RESULT OUT OF RANGE REFERENCE UNITS LAB L100.1000 4.4-11.0 K/mm3 Normal WBC 8.2 LAB L100.1200 4.2-5.4 M/mm3 Low RBC 3.18 LAB L100.1300 12.0-15.0 g/dl Low HGB 9.2 LAB L100.1400 37-47 % Low HCT 32.2 LAB L100.1500 81-99 fL High MCV 101.3 LAB L100.1600 27.0-32.0 pg Normal MCH 28.9 LAB L100.1700 32-36 g/gl Low MCHC 28.6 LAB L100.1810 11.6-14.6 % High RDW CV 16.1 LAB L100.1820 35.1-43.9 fl High RDW SD 57.1 LAB L100.1900 150-450 K/mm3 Normal PLT 227 LAB L100.2000 6.2-12.0 fl Normal MPV 9.1 LAB L100.2100 47-70 % High NEUT% 76.3 LAB L100.2200 19-41 % Low LY% 12.9 LAB L100.2300 0-10 % Normal MONO% 7.5 LAB L100.2400 0-5 % Normal EO% 1.6 LAB L100.2500 0-1 % Normal BASO% 0.2 LAB L100.2550 0.0-0.9 % High IM GRAN % 1.500 Result Comment: IG% - Immature Granulocytes (promyelocytes, myelocytes and metamyelocytes) > 1% indicates that a LEFT SHIFT is Present. LAB L100.2620 2.0-7.7 X10 3/uL Normal Absolute Neut 6.3 LAB L100.2720 0.83-4.51 X10 3/ul Normal Absolute Lymph 1.06 Performed By: #### L100.0100 #### [facility] [address] [facility] [place] [place], [place], [id number] BASIC METABOLIC Collected: 12/03/2017 Status: F Source: [place] PROFILE (BMP) 5:15 AM [facility] [place] REPOS[facility] TYPE CODE TESTS RESULT OUT OF RANGE REFERENCE UNITS LAB L501.0100 74-106 mg/dL High GLU 150 Result Comment: Fasting Glucose result greater than or equal to 126 mg/dL suggests DIABETES MELLITUS per A.D.A. criteria. Please note revised GLUCOSE reference range effective 2017. LAB L501.1000 7-18 mg/dL High BUN 97 LAB L501.1100 0.55-1.02 mg/dL High CREAT,SERUM 4.88 Result Comment: The validity of the calculated GFR AND GFRAA in patients over 70 years has not been determined. Clinical correlation is essential. LAB L501.1110 >60 mL/min Low EST GFR 9 Result Comment: Non- GFR Calc LAB L501.1115 >60 mL/min Low EST GFR - AA 11 Result Comment: GFR Calc LAB L501.1255 ml/min Normal Estimated CRCL 9.65 LAB L501.1300 10-20 RATIO Normal BUN/CRE 19.9 LAB L501.2200 8.5-10. mg/dL Low 1 CA 8.4 LAB L501.5300 136-145 mmol/L Normal NA 141 LAB L501.5600 3.5-5.1 mmol/L High K 5.7 LAB L501.5900 98-107 mmol/L Normal CL 102 LAB L501.6100 21.0-32 mmol/L Normal .0 CO2 30.0 LAB L501.6200 5-15 Normal GAP 9 Performed By: #### L500.2500, L501.5200 #### [facility] [address], [address] MAGNESIUM Collected: 12/03/2017 Status: F Source: CHRISTOPHER 5:15 AM [facility] [facility]POS[facility] TYPE CODE TESTS RESULT OUT OF RANGE REFERENCE UNITS LAB L501.5200 1.6-2.6 mg/dL Normal MG 2.5 Result Comment: Please note revised Magnesium reference range effective 2017. Performed By: #### L500.2500, L501.5200 #### [facility] [address] [place], [address] BEDSIDE GLUCOSE Collected: 12/02/2017 Status: F Source: CHRISTOPHER 9:10 PM [facility] [facility] TYPE CODE TESTS RESULT OUT OF REFERENCE UNITS RANGE LAB L501.080 70-110 mg/dL High BEDSIDE GLU 214 Result Comment: MANAGEMENT OF PATIENT CARE PER NURSING PROTOCOL Performed By: #### L501.080 #### [facility] Point of Care [address] [place] [address] BEDSIDE GLUCOSE Collected: 12/02/2017 Status: F Source: CHRISTOPHER 3:53 PM [facility] [facility]POS[facility] TYPE CODE TESTS RESULT OUT OF REFERENCE UNITS RANGE LAB L501.080 70-110 mg/dL High BEDSIDE GLU 222 Result Comment: MANAGEMENT OF PATIENT CARE PER NURSING PROTOCOL Performed By: #### L501.080 #### [facility] Point of Care [address] [place] [address] 12 LEAD ELECTROCARDIOGRAM Observed: 12/02/2017 Status: F Source: CHRISTOPHER 2:19 PM [facility] REPOSITORY [facility] Cardiovascular Services [address] [place] [address] 12 Lead EKG 11/28/17 0457 MR#: [id number] Acct: [id number] Name: MICHAEL GARCIA Rose Rep #: [id number] : 1945 72 From: Ortiz Markham MD Attending Dr: Jeevan Machado MD Status: ADM IN Ordering Dr: Ortiz Markham MD Date: 11/29/17 Location: U Sex: F C Admitted: 11/27/17 Test Reason : AM EKG Blood Pressure : / mmHG Vent. Rate : 112 BPM Atrial Rate : 133 BPM P-R Int : 000 ms QRS Dur : 086 ms QT Int : 370 ms P-R-T Axes : 000 030 071 degrees QTc Int : 505 ms Atrial fibrillation Low voltage QRS Abnormal ECG When compared with ECG of 27-NOV-2017 09:34, MANUAL COMPARISON REQUIRED, DATA IS UNCONFIRMED Confirmed by ORTIZ MARKHAM ([id number]), food expeditor HONORIO SHEFFIELD ([id number]) on 12/02/2017 2:18:52 PM Referred By: Severiano Kumar Confirmed By:ORTIZ MARKHAM 12/02/17 1418 Date Ortiz Markham MD CC: Ortiz Markham MD; Mat Duffy MD Signed 12 LEAD ELECTROCARDIOGRAM Observed: 12/02/2017 Status: F Source: [place] 1:57 PM [facility] Cardiovascular Services [address] [place] [address] 12 Lead EKG 11/27/17 0934 MR#: [id number] Acct: [id number] Name: MICHAEL GARCIA Rep #: [id number] : 1945 72 From: Ortiz Markham MD Attending Dr: Jeevan Machado MD Status: ADM IN Ordering Dr: Trevor Hamm MD Date: 11/27/17 Location: [facility] Sex: F C Admitted: 11/27/17 Test Reason : RVR, CP Blood Pressure : / mmHG Vent. Rate : 130 BPM Atrial Rate : 227 BPM P-R Int : 000 ms QRS Dur : 082 ms QT Int : 342 ms P-R-T Axes : 000 037 050 degrees QTc Int : 503 ms Atrial fibrillation Abnormal ECG When compared with ECG of 27-NOV-2017 05:49, MANUAL COMPARISON REQUIRED, DATA IS UNCONFIRMED Confirmed by ORTIZ MARKHAM ([id number]), food expeditor HONORIO SHEFFIELD ([id number]) on 12/02/2017 1:56:29 PM Referred By: Severiano Kumar Confirmed By:ORTIZ MARKHAM 12/02/17 1356 Date Ortiz Markham MD CC: Trevor Hamm MD; Mat Duffy MD Signed BASIC METABOLIC Collected: 12/02/2017 Status: F Source: CHRISTOPHER PROFILE (BMP) 1:55 PM [facility] REPOS[facility] TYPE CODE TESTS RESULT OUT OF RANGE REFERENCE UNITS LAB L501.0100 74-106 mg/dL High GLU 281 Result Comment: Glucose result greater than or equal to 200 mg/dL suggests DIABETES MELLITUS per A.D.A. criteria. Please note revised GLUCOSE reference range effective 2017. LAB L501.1000 7-18 mg/dL High BUN 93 LAB L501.1100 0.55-1.02 mg/dL High CREAT,SERUM 4.41 Result Comment: The validity of the calculated GFR AND GFRAA in patients over 70 years has not been determined. Clinical correlation is essential. LAB L501.1110 >60 mL/min Low EST GFR 11 Result Comment: Non- GFR Calc LAB L501.1115 >60 mL/min Low EST GFR - AA 13 Result Comment: GFR Calc LAB L501.1255 ml/min Normal Estimated CRCL 10.68 LAB L501.1300 10-20 RATIO High BUN/CRE 21.1 LAB L501.2200 8.5-10 mg/dL Low .1 CA 8.2 LAB L501.5300 136-14 mmol/L Normal 5 NA 142 LAB L501.5600 3.5-5. mmol/L High 1 K 5.6 LAB L501.5900 98-107 mmol/L Normal CL 103 LAB L501.6100 21.0-3 mmol/L Normal 2.0 CO2 31.0 LAB L501.6200 5-15 Normal GAP 8 Performed By: #### L500.2500 #### [facility] [address] [place], [address] 12 LEAD ELECTROCARDIOGRAM Observed: 12/02/2017 Status: F Source: CHRISTOPHER 1:50 PM [facility] [facility] Cardiovascular Services [address] [facility] [place] [address] 12 Lead EKG 11/27/17 0549 MR#: [id number] Acct: [id number] Name: MICHAEL GARCIA Rep #: [id number] : 1945 72 From: Ortiz Markham MD Attending Dr: Jeevan Machado MD Status: ADM IN Ordering Dr: Reinier Lang MD Date: 11/28/17 Location: [facility] Sex: F C Admitted: 11/27/17 Test Reason : CP Blood Pressure : / mmHG Vent. Rate : 103 BPM Atrial Rate : 103 BPM P-R Int : 130 ms QRS Dur : 080 ms QT Int : 342 ms P-R-T Axes : 046 023 059 degrees QTc Int : 448 ms Sinus tachycardia Otherwise normal ECG Confirmed by ORTIZ MARKHAM ([id number]), food expeditor HONORIO SHEFFIELD ([id number]) on 12/02/2017 1:49:59 PM Referred By: Severiano Kumar Confirmed By:ORTIZ MARKHAM 12/02/17 1350 Date Ortiz Markham MD CC: Reinier Lang MD; Mat Duffy MD Signed BEDSIDE GLUCOSE Collected: 12/02/2017 Status: F Source: CHRISTOPHER 11:26 AM [facility] TYPE CODE TESTS RESULT OUT OF REFERENCE UNITS RANGE LAB L501.080 70-110 mg/dL High BEDSIDE GLU 275 Result Comment: MANAGEMENT OF PATIENT CARE PER NURSING PROTOCOL Performed By: #### L501.080 #### [facility] Point of Care [address] [place] [address] BEDSIDE GLUCOSE Collected: 12/02/2017 Status: F Source: CHRISTOPHER 6:41 AM [facility] TYPE CODE TESTS RESULT OUT OF REFERENCE UNITS RANGE LAB L501.080 70-110 mg/dL High BEDSIDE GLU 239 Result Comment: MANAGEMENT OF PATIENT CARE PER NURSING PROTOCOL Performed By: #### L501.080 #### [facility] Point of Care [address] [place] [address] CBC-COMPLETE BLOOD CNT Collected: 12/02/2017 Status: F Source: CHRISTOPHER NO DIFF 5:10 AM [facility] [facility]POS[facility] TYPE CODE TESTS RESULT OUT OF RANGE REFERENCE UNITS LAB L100.1000 4.4-11.0 K/mm3 Normal WBC 8.0 LAB L100.1200 4.2-5.4 M/mm3 Low RBC 3.21 LAB L100.1300 12.0-15.0 g/dl Low HGB 9.1 LAB L100.1400 37-47 % Low HCT 31.1 LAB L100.1500 81-99 fL Normal MCV 96.9 LAB L100.1600 27.0-32.0 pg Normal MCH 28.3 LAB L100.1700 32-36 g/gl Low MCHC 29.3 LAB L100.1810 11.6-14.6 % High RDW CV 16.1 LAB L100.1820 35.1-43.9 fl High RDW SD 56.7 LAB L100.1900 150-450 K/mm3 Normal PLT 239 LAB L100.2000 6.2-12.0 fl Normal MPV 9.1 Performed By: #### L100.0500 #### [facility] [address] [place], [address] BASIC METABOLIC Collected: 12/02/2017 Status: F Source: GREENCREEK PROFILE (BMP) 5:10 AM [facility]POS[facility] TYPE CODE TESTS RESULT OUT OF RANGE REFERENCE UNITS LAB L501.0100 74-106 mg/dL High GLU 260 Result Comment: Glucose result greater than or equal to 200 mg/dL suggests DIABETES MELLITUS per A.D.A. criteria. Please note revised GLUCOSE reference range effective 2017. LAB L501.1000 7-18 mg/dL High BUN 94 LAB L501.1100 0.55-1.02 mg/dL High CREAT,SERUM 4.04 Result Comment: The validity of the calculated GFR AND GFRAA in patients over 70 years has not been determined. Clinical correlation is essential. LAB L501.1110 >60 mL/min Low EST GFR 12 Result Comment: Non- GFR Calc LAB L501.1115 >60 mL/min Low EST GFR - AA 14 Result Comment: GFR Calc LAB L501.1255 ml/min Normal Estimated CRCL 11.66 LAB L501.1300 10-20 RATIO High BUN/CRE 23.3 LAB L501.2200 8.5-10 mg/dL Low .1 CA 8.2 LAB L501.5300 136-14 mmol/L Normal 5 NA 139 LAB L501.5600 3.5-5. mmol/L High 1 K 5.8 LAB L501.5900 98-107 mmol/L Normal CL 100 LAB L501.6100 21.0-3 mmol/L Normal 2.0 CO2 30.0 LAB L501.6200 5-15 Normal GAP 9 Performed By: #### L500.2500, L501.5200 #### [facility] [address] [facility] [address] [facility] [address] MAGNESIUM Collected: 12/02/2017 Status: F Source: CHRISTOPHER 5:10 AM [facility] [facility] TYPE CODE TESTS RESULT OUT OF RANGE REFERENCE UNITS LAB L501.5200 1.6-2.6 mg/dL Normal MG 2.6 Result Comment: Please note revised Magnesium reference range effective 2017. Performed By: #### L500.2500, L501.5200 #### [facility] [place], [address] BEDSIDE GLUCOSE Collected: 12/01/2017 Status: F Source: CHRISTOPHER 9:00 PM [facility] TYPE CODE TESTS RESULT OUT OF REFERENCE UNITS RANGE LAB L501.080 70-110 mg/dL High BEDSIDE GLU 216 Result Comment: MANAGEMENT OF PATIENT CARE PER NURSING PROTOCOL Performed By: #### L501.080 #### [facility] Point of Care [address] [place] [address] [place] [address] BEDSIDE GLUCOSE Collected: 12/01/2017 Status: F Source: CHRISTOPHER 4:46 PM [facility] TYPE CODE TESTS RESULT OUT OF REFERENCE UNITS RANGE LAB L501.080 70-110 mg/dL High BEDSIDE GLU 209 Result Comment: MANAGEMENT OF PATIENT CARE PER NURSING PROTOCOL Performed By: #### L501.080 #### [facility] Point of Care [address] [place] [address] CONSULTATION Observed: 12/01/2017 Status: F Source: CHRISTOPHER 12:35 PM [facility] [place] RE[facility] Medical Records Department [address] [place] [address] [place] [address] Consultation 12/01/17 1226 MR#: [id number] Acct: [id number] Name: MICHAEL GARCIA Rep #: [id number] : 1945 72 From: Trell Jenkins MD PCP: Mat Duffy MD Status: ADM IN Y Location: [place] [address] Problem List (1) JORGE (acute kidney injury) Status: Acute Consultation - Renal 12/01/17 PCP/ Referring MD: Requesting physician: Dr Machado Primary care physician: Mat Duffy Reason for Consultation:: JORGE - History of Present Illness History of Present Illness: The patient is a 72 year old F admitted to hospital with progressively worsening dyspnea. Renal service consulted for JORGE CKD stage 3 with baseline creatinine around 1.5 to 2.1 with several fluctuations. several hospitalizations in last 6 months ongoing events this hospitalizations CXR showing left sided infiltrate. CT chest - left sided effusions with compressive atelectasis. no significant edema. Echo with normal EF, diastolic dysfunction and PA pressures 51 mm UTI with klebsiella diphtheroids bacteremia - likely contamination JORGE with creatinine upto 3 and BUN 88 Says has not voided since yesterday. No other urinary complaints no contrast No NSAIDs lasix on hold now - Allergies Allergies: Allergies No Known Allergies Allergy (Verified 11/27/17 05:53) - Current Medications Current Medications: Current Medications Albuterol/Ipratropium (Duoneb) 3 ml INHALATION Q6H.RT [facility] Last Admin: 12/01/17 06:42 Dose: 3 ml Amiodarone HCl (Cordarone) 200 mg PO DAILY [facility] Last Admin: 12/01/17 09:39 Dose: 200 mg Atorvastatin Calcium (Lipitor) 40 mg PO QHS [facility] Last Admin: 11/30/17 22:42 Dose: 40 mg Bisacodyl (Dulcolax) 5 mg PO DAILY PRN PRN PRN Reason: Constipation Clonidine (Catapres) 0.1 mg PO TID [facility] Last Admin: 12/01/17 05:28 Dose: 0.1 mg Dextrose (D50w Syringe) 0 gm IV X1 PRN; Protocol PRN Reason: Hypoglycemia Gabapentin (Neurontin) 300 mg PO QHS [facility] Last Admin: 11/30/17 22:50 Dose: 300 mg Glucagon () 1 mg IM .X1 PRN PRN Reason: Hypoglycemia Guaifenesin (Robitussin) 10 ml PO Q6H PRN PRN PRN Reason: COUGH/CONGESTION Heparin Sodium (Porcine) () 5,000 units SC BID [facility] Last Admin: 12/01/17 09:39 Dose: 5,000 units Piperacillin Sod/Tazobactam Sod (Zosyn) 3.375 gm in 50 mls @ 12.5 mls/hr IV Q8 [facility] Last Admin: 12/01/17 05:26 Dose: 12.5 mls/hr Insulin Aspart (Novolog Flexpen (Bk)) 0 units SC ACHS [facility] PRN Reason: Protocol Last Admin: 12/01/17 11:57 Dose: 2 u Insulin Detemir (Levemir ([facility])) 39 units SC BID [facility] Last Admin: 12/01/17 09:39 Dose: 39 u Levofloxacin (Levaquin) 250 mg PO DAILY@0600 [facility] Last Admin: 12/01/17 05:37 Dose: 250 mg Metoprolol Tartrate (Lopressor (Beta Stephania)) 50 mg PO BID [facility] Last Admin: 12/01/17 09:39 Dose: 50 mg Oxycodone HCl (Oxyir) 5 mg PO Q6H PRN PRN PRN Reason: SEVERE PAIN (6-10/10) Last Admin: 11/29/17 17:58 Dose: 5 mg Pantoprazole Sodium (Protonix) 40 mg PO DAILY [facility] Last Admin: 12/01/17 09:39 Dose: 40 mg Polysaccharide Iron Complex (Ferrex 150) [facility] Last Admin: 12/01/17 09:39 Dose: 150 mg Sodium Chloride () 5 - 30 ml IV UD PRN PRN Reason: SALINE FLUSH Last Admin: 11/27/17 21:57 Dose: 20 ml - Past Medical History Past Medical History (Chronic Problems): Chronic Problems (Last Updated 11/27/17 @ 08:28 by Fahad Sesay MD) Valvular heart disease (Chronic) Pulmonary hypertension (Chronic) HTN (hypertension) (Chronic) 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 - Social History Smoking Status: Never smoker Alcohol: None Drugs: None - Family History Maternal Family History: Family History (Last Updated 09/26/17 @ 12:38 by Jazlyn Gibson) Mother Cancer Diabetes Kidney disease Father Heart disease Diabetes Kidney disease History Items: Cancer, Diabetes, Renal Disease Paternal Family History: Family History (Last Updated 09/26/17 @ 12:38 by Jazlyn Gibson) Mother Cancer Diabetes Kidney disease Father Heart disease Diabetes Kidney disease History Items: Diabetes, Heart Disease, Renal Disease Review of Systems Constitutional: Denies: Chills, Fever, Weight Change HEENT: Denies: Head Aches, Sinus Congestion, Sinus Drainage Cardiovascular: Denies: Chest Pain, Palpitations Respiratory: Reports: Shortness of Breath. Denies: Cough, Shortness of breath at rest, Sputum production Gastrointestinal: Denies: Abdominal Pain, Nausea, Vomiting Genitourinary: Denies: Dysuria Musculoskeletal: Denies: Joint Pain, Joint Tenderness Skin: Denies: Rash, Wounds Neurological: Denies: Numbness, Tingling, Focal weakness Psychiatric: Denies: Anxiety, Depression, Homicidal Ideations, Suicidal Ideations Hematologic/ Lymphatic: Denies: Easy Bruising, Easy Bleeding Patient Problems: Active and Suspected Problems (Last Updated 11/27/17 @ 08:28 by Fahad Sesay MD) Paroxysmal A-fib (Acute) JORGE (acute kidney injury) (Acute) - Physical Exam General: Alert, Oriented x3, Cooperative HEENT: Atraumatic, PERRLA, EOMI, Normocephalic Neck: Supple, No JVD, Negative Carotid Bruits Lungs: No rales, Short of Breath Cardiovascular: Regular rate, No murmurs Abdomen: Bowel Sounds Present, Soft, Non Tender Extremities: No edema, Capillary Refill Less than 3 Seconds Skin: No rashes, No breakdown Musculoskeletal: No Tenderness to Palpation of Joints or Extremities Neurological: Cranial nerves II-XII grossly intact Psych/Mental Status: Normal Affect, Appropriate Vital Signs Temp Pulse Resp BP Pulse Ox 97.5 F L 52 L 18 124/51 H 97 12/01/17 09:36 12/01/17 11:14 12/01/17 09:36 12/01/17 09:36 12/01/17 09:36 Oxygen Flow Rate 2 Oxygen Delivery Method Nasal Cannula Weight: 97.5 kg Body Mass Index (BMI) 35.7 Intake and Output for Last 24 Hours Intake Total 1573.3 / 1573.3 1038 / 1038 649 / 649 Output Total 302 / 302 Balance 1271.3 / 1271.3 1038 / 1038 649 / 649 Laboratory Tests Past 24 Hrs POC Glucose POC Glucose 269 H 129 H 273 H POC Glucose 225 H Assessment/Plan Active and Suspected Problems (Last Updated 11/27/17 @ 08:28 by Fahad Sesay MD) Paroxysmal A-fib (Acute) JORGE (acute kidney injury) (Acute) JORGE CKD stage 3 Baseline creatinine is around 1.5 to 2.1. Primary etiology was diabetes. sustained JORGE in hospital since admission. BP is ok UA is consistent with UTI Ct abdomen does not show any hydronephrosis. no contrast studies. No nephrotoxic agents on board right now JORGE is likely ATN. 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 s/p PRBC 12/01/17 1235 <Electronically signed by Trell Jenkins MD> Date Trell Jenkins MD Cosigner Signature (if applicable): Date CC: Nidia Jones MD; Rocael Valencia MD; Ortiz Markham MD; Matilde Hayward MD; Mat Duffy MD Signed BEDSIDE GLUCOSE Collected: 12/01/2017 Status: F Source: CHRISTOPHER 11:21 AM [facility] RE[facility] TYPE CODE TESTS RESULT OUT OF REFERENCE UNITS RANGE LAB L501.080 70-110 mg/dL High BEDSIDE GLU 269 Result Comment: MANAGEMENT OF PATIENT CARE PER NURSING PROTOCOL Performed By: #### L501.080 #### [facility] Point of Care [address] [place] [address] BEDSIDE GLUCOSE Collected: 12/01/2017 Status: F Source: CHRISTOPHER 6:48 AM [facility] TYPE CODE TESTS RESULT OUT OF REFERENCE UNITS RANGE LAB L501.080 70-110 mg/dL High BEDSIDE GLU 129 Result Comment: MANAGEMENT OF PATIENT CARE PER NURSING PROTOCOL Performed By: #### L501.080 #### [facility] Point of Care [address] [place] [address] BASIC METABOLIC Collected: 12/01/2017 Status: F Source: CHRISTOPHER PROFILE (BMP) 5:05 AM [facility] TYPE CODE TESTS RESULT OUT OF RANGE REFERENCE UNITS LAB L501.0100 74-106 mg/dL High GLU 149 Result Comment: Fasting Glucose result greater than or equal to 126 mg/dL suggests DIABETES MELLITUS per A.D.A. criteria. Please note revised GLUCOSE reference range effective 2017. LAB L501.1000 7-18 mg/dL High BUN 84 LAB L501.1100 0.55-1.02 mg/dL High CREAT,SERUM 3.03 Result Comment: The validity of the calculated GFR AND GFRAA in patients over 70 years has not been determined. Clinical correlation is essential. LAB L501.1110 >60 mL/min Low EST GFR 16 Result Comment: Non- GFR Calc LAB L501.1115 >60 mL/min Low EST GFR - AA 20 Result Comment: GFR Calc LAB L501.1255 ml/min Normal Estimated CRCL 15.55 LAB L501.1300 10-20 RATIO High BUN/CRE 27.7 LAB L501.2200 8.5-10 mg/dL Low .1 CA 8.4 LAB L501.5300 136-14 mmol/L Normal 5 NA 138 LAB L501.5600 3.5-5. mmol/L Normal 1 K 5.0 LAB L501.5900 98-107 mmol/L Normal CL 99 LAB L501.6100 21.0-3 mmol/L Normal 2.0 CO2 32.0 LAB L501.6200 5-15 Normal GAP 7 Performed By: #### L500.2500 #### [facility] [address] [place], [address] CBC W/DIFF, AUTOMATED Collected: 12/01/2017 Status: F Source: [place] 5:05 AM [facility] TYPE CODE TESTS RESULT OUT OF RANGE REFERENCE UNITS LAB L100.1000 4.4-11.0 K/mm3 Normal WBC 6.2 LAB L100.1200 4.2-5.4 M/mm3 Low RBC 3.07 LAB L100.1300 12.0-15.0 g/dl Low HGB 8.8 LAB L100.1400 37-47 % Low HCT 29.5 LAB L100.1500 81-99 fL Normal MCV 96.1 LAB L100.1600 27.0-32.0 pg Normal MCH 28.7 LAB L100.1700 32-36 g/gl Low MCHC 29.8 LAB L100.1810 11.6-14.6 % High RDW CV 16.2 LAB L100.1820 35.1-43.9 fl High RDW SD 56.3 LAB L100.1900 150-450 K/mm3 Normal PLT 216 LAB L100.2000 6.2-12.0 fl Normal MPV 9.3 LAB L100.2100 47-70 % High NEUT% 76.3 LAB L100.2200 19-41 % Low LY% 14.8 LAB L100.2300 0-10 % Normal MONO% 6.6 LAB L100.2400 0-5 % Normal EO% 1.8 LAB L100.2500 0-1 % Normal BASO% 0.0 LAB L100.2550 0.0-0.9 % Normal IM GRAN % 0.500 Result Comment: IG% - Immature Granulocytes (promyelocytes, myelocytes and metamyelocytes) > 1% indicates that a LEFT SHIFT is Present. LAB L100.2620 2.0-7.7 X10 3/uL Normal Absolute Neut 4.8 LAB L100.2720 0.83-4.51 X10 3/ul Normal Absolute Lymph 0.92 Performed By: #### L100.0100 #### [facility] [address] [place], [address] CNCO Observed: 12/01/2017 Status: COMPLETED Source: [place] 12:00 AM [facility] REPOSITORY Letter Text Michael Garcia [address] [place] [address] 12/01/2017 [facility] #: [id number] Dear , Due to a change in the provider's schedule it has been necessary to reschedule your Appointment. Your original appointment was scheduled for January 21, 2018 at 8:20 AM with Mat Duffy M.D. Your new appointment is now scheduled on March 05, 2018 at 9:20 AM with Mat Duffy M.D. If this new appointment is not convenient for you, please contact our office at [phone]. Thank you for choosing the [facility] as your Healthcare Provider . Sincerely, Internal Medicine Appointment Office BEDSIDE GLUCOSE Collected: 11/30/2017 Status: F Source: CHRISTOPHER 10:41 PM [facility] RE[facility] TYPE CODE TESTS RESULT OUT OF REFERENCE UNITS RANGE LAB L501.080 70-110 mg/dL High BEDSIDE GLU 273 Result Comment: MANAGEMENT OF PATIENT CARE PER NURSING PROTOCOL Performed By: #### L501.080 #### [facility] Point of Care [address] [place] [address] BEDSIDE GLUCOSE Collected: 11/30/2017 Status: F Source: CHRISTOPHER 4:48 PM [facility] REPOSITORY TYPE CODE TESTS RESULT OUT OF REFERENCE UNITS RANGE LAB L501.080 70-110 mg/dL High BEDSIDE GLU 225 Result Comment: MANAGEMENT OF PATIENT CARE PER NURSING PROTOCOL Performed By: #### L501.080 #### [facility] Point of Care [address] [place], [place] [address] BEDSIDE GLUCOSE Collected: 11/30/2017 Status: F Source: CHRISTOPHER 11:45 AM [facility] [facility] TYPE CODE TESTS RESULT OUT OF REFERENCE UNITS RANGE LAB L501.080 70-110 mg/dL High BEDSIDE GLU 211 Result Comment: MANAGEMENT OF PATIENT CARE PER NURSING PROTOCOL Performed By: #### L501.080 #### [facility] Point of Care [address] [place] [address] ABDOMEN/PELVIS WITHOUT Observed: 11/30/2017 Status: F Source: CHRISTOP[facility] CONT 7:43 AM [facility] Imaging Services [address] [place] [address] Abdomen/Pelvis without Cont MR#: [id number] Acct: [id number] Name: MICHAEL GARCIA Rep #: [id number] : 1945 F 72 From: Javad Jalloh MD PCP: Mat Duffy MD Status: ADM IN Study: Abdomen/Pelvis without Cont Date of Exam: 11/30/17 Exam# [id number] Ordering Dr: Fahad Sesay MD STUDY: CT ABDOMEN AND PELVIS WITHOUT CONTRAST REASON FOR EXAM: Female, 72 years old. Abdominal pain and scleroderma RADIATION DOSAGE (If Supplied By Facility): CTDIvol = ( 21.86 ) mGy, DLP = ( 1185.21 ) mGycm TECHNIQUE: Transaxial images were obtained from the dome of the diaphragm to the symphysis pubis without oral contrast, and without intravenous contrast. Sagittal and coronal images were reconstructed. Individualized dose optimization techniques were used for this CT. COMPARISON: None. FINDINGS: Cardiac size is enlarged. Small pericardial effusion. Mitral annular calcifications. Small bilateral pleural effusions with bilateral compressive atelectasis. Small calcified granulomas in the right lower lobe. Small hiatal hernia. Gallbladder is nonvisualized likely related with cholecystectomy Splenic and hepatic calcifications likely relate with granulomatous disease. Splenomegaly with splenic craniocaudal dimension of approximately 15.5 cm Small nodule in the left adrenal gland possibly a small adenoma. Kidneys demonstrate no evidence for hydronephrosis. Vascular calcifications of the abdominal aorta. Midline fat-containing umbilical hernia. Scattered colonic diverticulosis. No evidence for acute diverticulitis. Normal appendix. The bowel gas pattern is nonspecific obstructive No retroperitoneal adenopathy Degenerative changes in the lumbar spine as well as the sacroiliac joints No free air within the peritoneal cavity. No free fluid in the pelvis No evidence for mesenteric adenopathy. Mild anterolisthesis of L4 on L5. Diffuse osteopenia Compression fracture of the T12 vertebral body of indeterminate age. Compression fracture of the L2 vertebral body of indeterminate age. L1 vertebral body kyphoplasty CT/Abdomen/Pelvis without Cont IMPRESSION: No evidence for small bowel obstruction. No evidence for obstructive uropathy. No evidence for acute appendicitis. Midline umbilical hernia containing fat Uncomplicated colonic diverticulosis Small bowel pleural effusions with bibasilar compressive atelectasis. Cardiomegaly with small pericardial effusion Splenomegaly T12 and L2 vertebral body compression fractures of indeterminate age. Electronically Signed: Javad Jalloh, at 9:17 EST Tel , Service support , CC: Fahad Sesay; Mat Duffy MD Business Support Administrator: Signed BEDSIDE GLUCOSE Collected: 11/30/2017 Status: F Source: [place] 6:53 AM [facility] TYPE CODE TESTS RESULT OUT OF RANGE REFERENCE UNITS LAB L501.080 70-110 mg/dL Normal BEDSIDE GLU 98 Result Comment: MANAGEMENT OF PATIENT CARE PER NURSING PROTOCOL Performed By: #### L501.080 #### [facility] Point of Care [address] [place] [address] [id number] BASIC METABOLIC Collected: 11/30/2017 Status: F Source: CHRISTOPHER PROFILE (BMP) 5:22 AM [facility] TYPE CODE TESTS RESULT OUT OF RANGE REFERENCE UNITS LAB L501.0100 74-106 mg/dL High GLU 107 Result Comment: Fasting Glucose result from 100 to 125 mg/dL suggests IMPAIRED HOMEOSTASIS per A.D.A. criteria. Please note revised GLUCOSE reference range effective 2017. LAB L501.1000 7-18 mg/dL High BUN 76 LAB L501.1100 0.55-1.02 mg/dL High CREAT,SERUM 2.79 Result Comment: The validity of the calculated GFR AND GFRAA in patients over 70 years has not been determined. Clinical correlation is essential. LAB L501.1110 >60 mL/min Low EST GFR 18 Result Comment: Non- GFR Calc LAB L501.1115 >60 mL/min Low EST GFR - AA 22 Result Comment: GFR Calc LAB L501.1255 ml/min Normal Estimated CRCL 16.88 LAB L501.1300 10-20 RATIO High BUN/CRE 27.2 LAB L501.2200 8.5-10 mg/dL Low .1 CA 8.4 LAB L501.5300 136-14 mmol/L Normal 5 NA 139 LAB L501.5600 3.5-5. mmol/L Normal 1 K 5.1 LAB L501.5900 98-107 mmol/L Normal CL 99 LAB L501.6100 21.0-3 mmol/L Normal 2.0 CO2 31.0 LAB L501.6200 5-15 Normal GAP 9 Performed By: #### L500.2500 #### [facility] [address] [place], [place], [address] CBC W/DIFF, AUTOMATED Collected: 11/30/2017 Status: F Source: [place] 5:22 AM [facility] TYPE CODE TESTS RESULT OUT OF RANGE REFERENCE UNITS LAB L100.1000 4.4-11.0 K/mm3 Normal WBC 6.8 LAB L100.1200 4.2-5.4 M/mm3 Low RBC 2.75 LAB L100.1300 12.0-15.0 g/dl Low HGB 7.8 LAB L100.1400 37-47 % Low HCT 26.3 LAB L100.1500 81-99 fL Normal MCV 95.6 LAB L100.1600 27.0-32.0 pg Normal MCH 28.4 LAB L100.1700 32-36 g/gl Low MCHC 29.7 LAB L100.1810 11.6-14.6 % High RDW CV 16.3 LAB L100.1820 35.1-43.9 fl High RDW SD 56.8 LAB L100.1900 150-450 K/mm3 Normal PLT 222 LAB L100.2000 6.2-12.0 fl Normal MPV 9.1 LAB L100.2100 47-70 % High NEUT% 72.3 LAB L100.2200 19-41 % Low LY% 16.8 LAB L100.2300 0-10 % Normal MONO% 8.3 LAB L100.2400 0-5 % Normal EO% 1.9 LAB L100.2500 0-1 % Normal BASO% 0.3 LAB L100.2550 0.0-0.9 % Normal IM GRAN % 0.400 Result Comment: IG% - Immature Granulocytes (promyelocytes, myelocytes and metamyelocytes) > 1% indicates that a LEFT SHIFT is Present. LAB L100.2620 2.0-7.7 X10 3/uL Normal Absolute Neut 4.9 LAB L100.2720 0.83-4.51 X10 3/ul Normal Absolute Lymph 1.14 Performed By: #### L100.0100 #### [facility] [address] [place], [address] BEDSIDE GLUCOSE Collected: 11/29/2017 Status: F Source: [place] 10:45 PM [facility] TYPE CODE TESTS RESULT OUT OF REFERENCE UNITS RANGE LAB L501.080 70-110 mg/dL High BEDSIDE GLU 257 Result Comment: MANAGEMENT OF PATIENT CARE PER NURSING PROTOCOL Performed By: #### L501.080 #### [facility] Point of Care [address] [place] [address] BEDSIDE GLUCOSE Collected: 11/29/2017 Status: F Source: CHRISTOPHER 4:25 PM [facility] TYPE CODE TESTS RESULT OUT OF REFERENCE UNITS RANGE LAB L501.080 70-110 mg/dL High BEDSIDE GLU 136 Result Comment: MANAGEMENT OF PATIENT CARE PER NURSING PROTOCOL Performed By: #### L501.080 #### [facility] Point of Care [address] [place] [address] BEDSIDE GLUCOSE Collected: 11/29/2017 Status: F Source: [place]RI[place]HER 10:54 AM [facility] TYPE CODE TESTS RESULT OUT OF REFERENCE UNITS RANGE LAB L501.080 70-110 mg/dL High BEDSIDE GLU 177 Result Comment: MANAGEMENT OF PATIENT CARE PER NURSING PROTOCOL Performed By: #### L501.080 #### [facility] Point of Care [address] [place] [address] TYPE AND SCREEN Collected: 11/29/2017 Status: F Source: [place] 8:10 AM [facility] Order Comment: CMV NEG? N Number of units to transfuse: 1 Is this product for anemia associated with hemoglobinopathy? N Is pt's Hgb is </= to 7.0 mg/dl or Hct </= 21%? N Is there an orthostatic change in BP (SBP drop > 10mmHg)? N Is this for PREOP anemia correction prior to anesthesia? N Reason for Ordering Blood: Chronic Is there symptomatic anemia? N Are the blood/blood products to be transfused? Y Is the patient having/had surgery? N Give When? When Ready Irradiated? N Leukodepleted? Y TYPE CODE TESTS RESULT OUT OF RANGE REFERENCE UNITS LAB B10.0800 O Normal BLOOD TYPE GEL POSITIVE LAB B100.4000 Normal Antibody NEGATIVE Screen Performed By: #### B101.7450 #### [facility] [address] [place] [address], [address] RC Collected: 11/29/2017 Status: F Source: [place] 8:10 AM [facility] TYPE CODE TESTS RESULT OUT OF REFERENCE UNITS RANGE LAB U100.0000 [id number] TRANSFUSED PRODUCT: T AND S with Crossmatch, Red Cells COUNT: 1 Performed By: #### U100.0000 #### [facility] - refer to report for specific site RC Collected: 11/29/2017 Status: F Source: [place] 8:10 AM [facility] TYPE CODE TESTS RESULT OUT OF REFERENCE UNITS RANGE LAB U100.0000 [id number] TRANSFUSED PRODUCT: T AND S with Crossmatch, Red Cells COUNT: 1 Performed By: #### U100.0000 #### [facility] - refer to report for specific site BEDSIDE GLUCOSE Collected: 11/29/2017 Status: F Source: [place] 7:22 AM [facility] TYPE CODE TESTS RESULT OUT OF RANGE REFERENCE UNITS LAB L501.080 70-110 mg/dL Normal BEDSIDE GLU 73 Result Comment: MANAGEMENT OF PATIENT CARE PER NURSING PROTOCOL Performed By: #### L501.080 #### [facility] Point of Care [address] [place] [address]. [place] [address] BEDSIDE GLUCOSE Collected: 11/29/2017 Status: F Source: [place] 7:01 AM [facility] TYPE CODE TESTS RESULT OUT OF REFERENCE UNITS RANGE LAB L501.080 70-110 mg/dL Low BEDSIDE GLU 67 Result Comment: MANAGEMENT OF PATIENT CARE PER NURSING PROTOCOL Performed By: #### L501.080 #### [facility] Point of Care [address] [place] [address] BEDSIDE GLUCOSE Collected: 11/29/2017 Status: F Source: [place] 6:40 AM [facility] TYPE CODE TESTS RESULT OUT OF REFERENCE UNITS RANGE LAB L501.080 70-110 mg/dL Low alert BEDSIDE GLU 33 Result Comment: MANAGEMENT OF PATIENT CARE PER NURSING PROTOCOL Performed By: #### L501.080 #### [facility] Point of Care [address] [place] [address] CBC W/DIFF, AUTOMATED Collected: 11/29/2017 Status: F Source: [place] 5:24 AM [facility] TYPE CODE TESTS RESULT OUT OF RANGE REFERENCE UNITS LAB L100.1000 4.4-11.0 K/mm3 Normal WBC 8.7 LAB L100.1200 4.2-5.4 M/mm3 Low RBC 2.69 LAB L100.1300 12.0-15.0 g/dl Low HGB 7.5 LAB L100.1400 37-47 % Low HCT 26.2 LAB L100.1500 81-99 fL Normal MCV 97.4 LAB L100.1600 27.0-32.0 pg Normal MCH 27.9 LAB L100.1700 32-36 g/gl Low MCHC 28.6 LAB L100.1810 11.6-14.6 % High RDW CV 15.9 LAB L100.1820 35.1-43.9 fl High RDW SD 55.9 LAB L100.1900 150-450 K/mm3 Normal PLT 267 LAB L100.2000 6.2-12.0 fl Normal MPV 9.2 LAB L100.2100 47-70 % High NEUT% 77.6 LAB L100.2200 19-41 % Low LY% 12.9 LAB L100.2300 0-10 % Normal MONO% 6.9 LAB L100.2400 0-5 % Normal EO% 2.2 LAB L100.2500 0-1 % Normal BASO% 0.2 LAB L100.2550 0.0-0.9 % Normal IM GRAN % 0.200 Result Comment: IG% - Immature Granulocytes (promyelocytes, myelocytes and metamyelocytes) > 1% indicates that a LEFT SHIFT is Present. LAB L100.2620 2.0-7.7 X10 3/uL Normal Absolute Neut 6.7 LAB L100.2720 0.83-4.51 X10 3/ul Normal Absolute Lymph 1.12 Performed By: #### L100.0100, L500.2500 #### [facility] [address] [place], [place], [address] BASIC METABOLIC Collected: 11/29/2017 Status: F Source: [place] PROFILE (BMP) 5:24 AM [facility] TYPE CODE TESTS RESULT OUT OF RANGE REFERENCE UNITS LAB L501.0100 74-106 mg/dL Low alert GLU 41 Result Comment: Critical Result(s) Called at: 06:58:19 11/29/2017 by: Hermes Hadley RN (PCU). Glucose result less than 50 mg/dL suggests HYPOGLYCEMIA. Please note revised GLUCOSE reference range effective 2017. LAB L501.1000 7-18 mg/dL High BUN 66 LAB L501.1100 0.55-1.02 mg/dL High CREAT,SERUM 2.16 Result Comment: The validity of the calculated GFR AND GFRAA in patients over 70 years has not been determined. Clinical correlation is essential. LAB L501.1110 >60 mL/min Low EST GFR 24 Result Comment: Non- GFR Calc LAB L501.1115 >60 mL/min Low EST GFR - AA 29 Result Comment: GFR Calc LAB L501.1255 ml/min Normal Estimated CRCL 21.81 LAB L501.1300 10-20 RATIO High BUN/CRE 30.6 LAB L501.2200 8.5-10 mg/dL Low .1 CA 8.4 LAB L501.5300 136-14 mmol/L Normal 5 NA 139 LAB L501.5600 3.5-5. mmol/L Normal 1 K 4.6 LAB L501.5900 98-107 mmol/L Normal CL 98 LAB L501.6100 21.0-3 mmol/L High 2.0 CO2 33.0 LAB L501.6200 5-15 Normal GAP 8 Performed By: #### L100.0100, L500.2500 #### [facility] [address] [place], [address] BEDSIDE GLUCOSE Collected: 11/28/2017 Status: F Source: [place]HER 9:23 PM [facility] TYPE CODE TESTS RESULT OUT OF REFERENCE UNITS RANGE LAB L501.080 70-110 mg/dL High BEDSIDE GLU 246 Result Comment: MANAGEMENT OF PATIENT CARE PER NURSING PROTOCOL Performed By: #### L501.080 #### [facility] Point of Care [address] [place] [address] BEDSIDE GLUCOSE Collected: 11/28/2017 Status: F Source: [place] 5:14 PM [facility] TYPE CODE TESTS RESULT OUT OF REFERENCE UNITS RANGE LAB L501.080 70-110 mg/dL High BEDSIDE GLU 243 Result Comment: MANAGEMENT OF PATIENT CARE PER NURSING PROTOCOL Performed By: #### L501.080 #### [facility] Point of Care [address] [place] [address] CHEST WITHOUT Observed: 11/28/2017 Status: F Source: CHRISTOP[place] CONTRAST 12:45 PM [facility] Imaging Services [address] [address] Chest without Contrast MR#: [id number] Acct: [id number] Name: GARCIAMICHAEL Rep #: [id number] : 1945 F 72 From: Florencia Warren MD PCP: Mat Duffy MD Status: ADM IN Study: Chest without Contrast Date of Exam: 11/28/17 Exam# [id number] Ordering Dr: Viviana Childers PROFESSIONAL ARCHITECT-C STUDY: CT CHEST WITHOUT CONTRAST REASON FOR EXAM: Female, 72 years old. Evaluation of pleural effusion. RADIATION DOSAGE (If Supplied By Facility): CTDIvol = ( 20.66 ) mGy, DLP = ( 753.15 ) mGycm TECHNIQUE: Transaxial imaging was performed without the administration of intravenous contrast material. Multiplanar coronal and sagittal images were reformatted. Individualized dose optimization techniques were used for this CT. COMPARISON: Prior chest radiograph of November 28, 2017. Prior chest CT exam of May 31, 2017 FINDINGS: Moderate increase in the left posterior and basilar pleural effusion which also extends into the oblique fissure. Increasing severe compressive atelectasis of the left lower lobe now including the superior segment. Moderate compressive atelectasis of the lingula. Mild compressive atelectasis of the left upper lobe. Small right pleural effusion and increased atelectatic changes in the posterior right lung base. Stable areas of linear scarring in the right upper lobe. Calcified granuloma of the left hilum. Calcified granuloma of the left lower lobe. Continued cardiomegaly. Small to moderate pericardial effusion Normal mediastinum. Normal hilar regions. Normal unenhanced pulmonary arteries. There is atherosclerotic calcification of the aortic arch with tortuosity and elongation of the aortic arch and descending thoracic aorta. There are multi-level degenerative changes of the thoracic spine. There is no demonstrated abnormality of the visualized upper abdomen. CT/Chest without Contrast IMPRESSION: Moderate increase in the posterior and basilar left pleural effusion which now extends into the oblique fissure with major compressive atelectasis of the left lower lobe now including the superior segment. Moderate compressive atelectasis of the lingula and mild compressive atelectasis of the left upper lobe. Small, primarily subpulmonic effusion of the right chest with increased/mild compressive atelectasis of the right lower lobe. Other stable chronic findings. Continued moderate pericardial effusion and cardiomegaly. Electronically Signed: Florencia Warren MD at 15:58 EST , Service support , CC: Viviana Childers PROFESSIONAL ARCHITECT; Mat Duffy MD Business Support Administrator: Signed BEDSIDE GLUCOSE Collected: 11/28/2017 Status: F Source: [place] 11:35 AM [facility] TYPE CODE TESTS RESULT OUT OF REFERENCE UNITS RANGE LAB L501.080 70-110 mg/dL High BEDSIDE GLU 238 Result Comment: MANAGEMENT OF PATIENT CARE PER NURSING PROTOCOL Performed By: #### L501.080 #### [facility] Point of Care [address] [place] [address] BEDSIDE GLUCOSE Collected: 11/28/2017 Status: F Source: [place] 7:46 AM [facility] TYPE CODE TESTS RESULT OUT OF RANGE REFERENCE UNITS LAB L501.080 70-110 mg/dL Normal BEDSIDE GLU 110 Result Comment: MANAGEMENT OF PATIENT CARE PER NURSING PROTOCOL Performed By: #### L501.080 #### [facility] Point of Care [address] [place] [address] BASIC METABOLIC Collected: 11/28/2017 Status: F Source: [place] PROFILE (BMP) 4:15 AM [facility] TYPE CODE TESTS RESULT OUT OF RANGE REFERENCE UNITS LAB L501.0100 74-106 mg/dL Low GLU 66 Result Comment: Please note revised GLUCOSE reference range effective 2017. LAB L501.1000 7-18 mg/dL High BUN 60 LAB L501.1100 0.55-1.02 mg/dL High CREAT,SERUM 1.88 Result Comment: The validity of the calculated GFR AND GFRAA in patients over 70 years has not been determined. Clinical correlation is essential. LAB L501.1110 >60 mL/min Low EST GFR 28 Result Comment: Non- GFR Calc LAB L501.1115 >60 mL/min Low EST GFR - AA 34 Result Comment: GFR Calc LAB L501.1255 ml/min Normal Estimated CRCL 25.06 LAB L501.1300 10-20 RATIO High BUN/CRE 31.9 LAB L501.2200 8.5-10 mg/dL Low .1 CA 8.3 LAB L501.5300 136-14 mmol/L Normal 5 NA 140 LAB L501.5600 3.5-5. mmol/L Normal 1 K 4.0 LAB L501.5900 98-107 mmol/L Normal CL 99 LAB L501.6100 21.0-3 mmol/L High 2.0 CO2 34.0 LAB L501.6200 5-15 Normal GAP 7 Performed By: #### L500.2500 #### [facility] [address] [place], [place], [address] CBC W/DIFF, AUTOMATED Collected: 11/28/2017 Status: F Source: [place] 4:15 AM [facility] TYPE CODE TESTS RESULT OUT OF RANGE REFERENCE UNITS LAB L100.1000 4.4-11.0 K/mm3 Normal WBC 8.7 LAB L100.1200 4.2-5.4 M/mm3 Low RBC 2.70 LAB L100.1300 12.0-15.0 g/dl Low HGB 7.7 LAB L100.1400 37-47 % Low HCT 26.2 LAB L100.1500 81-99 fL Normal MCV 97.0 LAB L100.1600 27.0-32.0 pg Normal MCH 28.5 LAB L100.1700 32-36 g/gl Low MCHC 29.4 LAB L100.1810 11.6-14.6 % High RDW CV 15.7 LAB L100.1820 35.1-43.9 fl High RDW SD 55.6 LAB L100.1900 150-450 K/mm3 Normal PLT 221 LAB L100.2000 6.2-12.0 fl Normal MPV 9.1 LAB L100.2100 47-70 % High NEUT% 75.4 LAB L100.2200 19-41 % Low LY% 13.6 LAB L100.2300 0-10 % Normal MONO% 8.5 LAB L100.2400 0-5 % Normal EO% 2.1 LAB L100.2500 0-1 % Normal BASO% 0.2 LAB L100.2550 0.0-0.9 % Normal IM GRAN % 0.200 Result Comment: IG% - Immature Granulocytes (promyelocytes, myelocytes and metamyelocytes) > 1% indicates that a LEFT SHIFT is Present. LAB L100.2620 2.0-7.7 X10 3/uL Normal Absolute Neut 6.6 LAB L100.2720 0.83-4.51 X10 3/ul Normal Absolute Lymph 1.18 Performed By: #### L100.0100 #### [facility] [address] [place], [place], [address] CHEST PA AND LATERAL Observed: 11/28/2017 Status: F Source: CHRISTOPHER 12:00 AM [facility] [place] [place] [facility] [place] [address] Chest PA and Lateral MR#: [id number] Acct: [id number] Name: MICHAEL GARCIA Rep #: [id number] : 1945 F 72 From: Brett Arcos MD PCP: Mat Duffy MD Status: ADM IN Study: Chest PA and Lateral Date of Exam: 11/28/17 Exam# [id number] Ordering Dr: Rocael Valencia MD STUDY: X-RAY CHEST REASON FOR EXAM: Female, 72 years old. Shortness of breath. TECHNIQUE: PA and lateral views of the chest. COMPARISON: Comparison is made with prior examination dated November 27, 2017. FINDINGS: EKG electrodes are seen. Persistent consolidation in the left lower lobe with blunting of the left costophrenic angle. Mild improved aeration as compared to prior study. And now is evidence of blunting of the right costophrenic angle as well as increased markings at the right lung base suggestive of either early infiltrate or atelectasis. There is calcification of the mitral valve annulus. Normal mediastinum and jose f. Normal visualized pulmonary arteries. There is atherosclerotic calcification of the aortic arch with tortuosity. Prior vertebroplasty of the L1 vertebrae. Normal visualized ribs, clavicles, and shoulders. There is no demonstrated abnormality of the visualized soft tissue structures of the upper abdomen. RAD/Chest PA and Lateral IMPRESSION: Persistent consolidation in the left lower lobe although there is slight improvement in the aeration of the left lower lobe. Blunting of the right costophrenic angle with mild increased markings at the right lung base. Electronically Signed: Brett Arcos MD at 9:06 EST Tel [phone], Service support , CC: Roceal Valencia MD; Mat Duffy MD Business Support Administrator: Signed BEDSIDE GLUCOSE Collected: 11/27/2017 Status: F Source: [place] 9:54 PM [facility] TYPE CODE TESTS RESULT OUT OF REFERENCE UNITS RANGE LAB L501.080 70-110 mg/dL High BEDSIDE GLU 195 Result Comment: MANAGEMENT OF PATIENT CARE PER NURSING PROTOCOL Performed By: #### L501.080 #### [facility] Point of Care [address] [place] [address] TROPONIN-I Collected: 11/27/2017 Status: F Source: [place] 7:55 PM [facility] [facility] Order Comment: 'TROP' Serial specimen #1, #2, #3, or #4: 4 TYPE CODE TESTS RESULT OUT OF RANGE REFERENCE UNITS LAB L501.4010 <0.06 ng/mL Normal < 0.02 TROPONIN-I Result Comment: TROPONIN-I EXPECTED VALUES <0.05 NEGATIVE 0.06 - 0.59 AT RISK OF SC > OR = 0.60 SUGGEST SC Performed By: #### L501.4010 #### [facility] [address] [place], [address] BEDSIDE GLUCOSE Collected: 11/27/2017 Status: F Source: [place]HER 5:36 PM [facility] TYPE CODE TESTS RESULT OUT OF REFERENCE UNITS RANGE LAB L501.080 70-110 mg/dL High BEDSIDE GLU 209 Result Comment: MANAGEMENT OF PATIENT CARE PER NURSING PROTOCOL Performed By: #### L501.080 #### [facility] Point of Care [address] [place] [address] POTASSIUM Collected: 11/27/2017 Status: F Source: [place]HER 4:45 PM [facility] TYPE CODE TESTS RESULT OUT OF RANGE REFERENCE UNITS LAB L501.5600 3.5-5.1 mmol/L Normal K 4.2 Performed By: #### L501.5600 #### [facility] [address] [place], [address] TROPONIN-I Collected: 11/27/2017 Status: F Source: [facility] 4:45 PM [facility] Order Comment: 'TROP' Serial specimen #1, #2, #3, or #4: 3 TYPE CODE TESTS RESULT OUT OF RANGE REFERENCE UNITS LAB L501.4010 <0.06 ng/mL Normal 0.03 TROPONIN-I Result Comment: TROPONIN-I EXPECTED VALUES <0.05 NEGATIVE 0.06 - 0.59 AT RISK OF SC > OR = 0.60 SUGGEST SC Performed By: #### L501.4010 #### [facility] [address] [place], [address] CONSULTATION Observed: 11/27/2017 Status: F Source: [place] 4:39 PM [facility] [place] [facility] Medical Records Department [address] [place] [address] Consultation 11/27/17 [id number] MR#: [id number] Acct: [id number] Name: MICHAEL GARCIA Rep #: [id number] : 1945 72 From: Reinier Lang MD PCP: Mat Duffy MD Status: ADM IN Y Location: ICU [id number] Problem List (1) Paroxysmal A-fib Status: Acute (2) Valvular heart disease Status: Chronic (3) HTN (hypertension) Status: Chronic Qualifiers: Hypertension type: essential hypertension (4) Hyperlipidemia Status: Chronic Qualifiers: (5) Type 2 diabetes mellitus Status: Chronic Qualifiers: (6) CKD (chronic kidney disease) stage 3, GFR 30-59 ml/min Status: Chronic (7) Anemia Status: Chronic Qualifiers: (8) Pulmonary hypertension Status: Chronic (9) Obstructive sleep apnea Status: Chronic Comment: Untreated (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 She has presented with concerns of an atypical left-sided chest discomfort, shortness of breath/dyspnea, cough, subsequent findings of a left-sided pleural effusion, as well as concerns of an underlying urinary tract infection. She has had paroxysmal atrial fibrillation with rapid ventricular response. She has been undergoing evaluation in the ICU for the aforementioned concerns. From a cardiac standpoint she has had troponin I levels which have been negative. Her ECG demonstrated atrial fibrillation with rapid ventricular response with a low voltage QRS. Her chest x-ray suggested a left sided pleural effusion. She was tentatively scheduled for a left-sided thoracentesis however this was canceled. She had a transthoracic echocardiogram performed. Her left ventricle was noted to be normal with respect to size, wall motion, and systolic function with an estimated LVEF of 65%; left atrial enlargement; mitral annular calcification; mild MR, mild TR, mild aortic valve stenosis and an estimated RV systolic pressure of 51 mmHg compatible pulmonary hypertension. She has been treated with antibiotic therapy based on concerns of an underlying urinary tract related infectious disease process. The patient states that she can feel her heart rate change. She states when it does she feel somewhat tighter in the chest. She has noted her shortness of breath and dyspnea progressing over the last 1-2 weeks. She has not had complaints of orthopnea, PND, or progressive lower extremity peripheral pitting edema. There has been no near syncope or syncope. [] Past Medical History Allergies/Adverse Reactions: Allergies No Known Allergies Allergy (Verified 11/27/17 05:53) Home Medications: Ambulatory Orders Medication Instructions Recorded Past Medical History (Chronic Problems): Chronic Problems (Last Updated 11/27/17 @ 08:28 by Fahad Sesay MD) Valvular heart disease (Chronic) Pulmonary hypertension (Chronic) HTN (hypertension) (Chronic) 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) S/P craniotomy (Chronic) For intracerebral hemorrhage Obesity (BMI 30.0-34.9) (Chronic) Morbid obesity (Chronic) CKD (chronic kidney disease) stage 3, GFR 30-59 ml/min (Chronic) Obstructive sleep apnea (Chronic) Untreated Type 2 diabetes mellitus (Chronic) History of cerebral hemorrhage (Chronic) Anemia (Chronic) Aortic stenosis, mild (Chronic) Mitral stenosis (Chronic) mild Stroke (Chronic) Hyperlipidemia (Chronic) Vitamin D deficiency (Chronic) Neuropathic pain (Chronic) Surgical History: cholecystectomy, rotator cuff repair, - - Craniotomy. Psychiatric History: No pertinent psych hx ACTUARIAL ASSOCIATE History: No pertinent ACTUARIAL ASSOCIATE history - *Family History Maternal Family History: Family History (Last Updated 12/22/17 @ 12:38 by Jazlyn Gibson) Mother Cancer Diabetes Kidney disease Father Heart disease Diabetes Kidney disease History Items: Cancer, Diabetes, Renal Disease Paternal Family History: Family History (Last Updated 09/26/17 @ 12:38 by Jazlyn Gibson) Mother Cancer Diabetes Kidney disease Father Heart disease Diabetes Kidney disease History Items: Diabetes, Heart Disease, Renal Disease Lives: Spouse/ Significant Other Smoking Status: Never smoker Tobacco Use: Non-smoker Alcohol: None Drugs: None Review of Systems - Review of Systems General: Denies: Fever, Night Sweats, Fatigue Cardiovascular: Reports: Shortness of Breath, Peripheral Edema, Palpitations. Denies: Chest Discomfort, Orthopnea, PND, Lightheadedness, Dizziness, Near Syncope, Syncope Respiratory: Reports: Sputum Production. Denies: Cough, Hemoptysis Gastrointestinal: Denies: Hematemesis, Hematochezia, Melena Genitourinary: Denies: Dysuria, Hematuria Skin: Denies: Rash Subjectve: This is a 72-year-old white female who appears to be resting reasonably comfortably at the moment in no acute distress. Objective: Vital Signs Temp Pulse Resp BP Pulse Ox 97.8 F 76 25 H 141/102 H 100 11/27/17 09:00 11/27/17 11:54 11/27/17 11:04 11/27/17 11:08 11/27/17 11:00 Oxygen Flow Rate 5 Oxygen Delivery Method Nasal Cannula Weight: 214 lb 15.211 oz Body Mass Index (BMI) 35.7 Intake and Output for Last 24 Hours Intake Total 208 / 208 Output Total 0 / 0 Balance 208 / 208 General: Awake, Alert, Oriented x 3, Cooperative, No Acute Distress Neck: No JVD Lungs: Diminished Mendez Bases - Left greater than right Cardiovascular: Irregular Rhythm, Normal S1, Normal S2 Vascular: No Carotid Bruits Abdomen: Bowel Sounds Present, Soft, Non Tender, Obese Extremities: Trace RLE Edema, Trace LLE Edema 11/27/17 09:30: PT 16.0 H, INR 1.3, APTT 48.9 H 11/27/17 09:30: Troponin I 0.04 11/27/17 09:30: Magnesium 2.2 11/27/17 09:30: Total Bilirubin 0.30, Direct Bilirubin 0.12 Rhythm: Atrial fibrillation EKG: As noted above ECHO: As noted above Holter monitor: 02/12/2016: Sinus rhythm; PACs; atrial runs; no atrial fibrillation reported; no wide complex runs or tachycardia reported; no prolonged pauses reported CXR: Please see official report Assessment/Plan 1. Paroxysmal atrial fibrillation with rapid ventricular response The patient has a history of paroxysmal atrial fibrillation. She has been documenting recurrence of this since being in the hospital. This may be exacerbated based on her underlying noncardiovascular issues including infectious disease issues as well as other noncardiovascular issues including underlying pulmonary issues superimposed upon the patient's history of atrial enlargement and mitral valve disease, etc. At the present time she remains with rapid ventricular response. She has been on rate control therapy in the past as well as anticoagulant therapy. It is reasonable to continue both of these as deemed appropriate during her hospitalization. However it may be reasonable to try and bring her rate and rhythm under better control. This would include an attempt at antiarrhythmic therapy such as amiodarone therapy. She is also completing her cardiac enzyme evaluation. They have been negative thus far. Her ECG is demonstrated no other new acute changes. Her transthoracic echocardiogram is as noted above. At some point in time the patient may need to be further screened for the possibility of CAD and myocardial ischemia contributing to her symptoms and her findings. However this may have to be postponed until she has improved from a noncardiovascular standpoint with respect to concerns of infectious disease and/or underlying pulmonary disease. 2. Valvular heart disease Patient does have valvular heart disease as previously noted. Certainly this can contribute to concerns with her left atrial size as well as subsequent atrial dysrhythmias. At the present time she will need to continue to be followed by history, exam, and echocardiographic studies. She will need compensatory medical management as best as possible in the interim. 3. Hypertension May be a contributing factor to the patient's atrial dysrhythmia. Thus she will need to continue her antihypertensive therapy as best as possible. 4. Hyperlipidemia The patient will need to continue risk factor modification and lipid-lowering therapy. 5. Diabetes mellitus The patient will continue under the care of internal medicine. 6. Chronic renal insufficiency The patient's renal function will need to be followed during her hospitalization. This may impact medical management. 7. Anemia If the patient's H AND H declines she may need to be considered for PRBC transfusion to maintain adequate oxygen carrying capacity. 8. Pulmonary hypertension The patient does have underlying pulmonary hypertension. This may be multifactorial. There may be a combination of her underlying mitral valve disease process associated with this. At the same time this may be predominantly from noncardiac issues such as concerns of her connective tissue disease related issues obstructive sleep apnea issues. This can also impact her atrial dysrhythmia. 9. Obstructive sleep apnea The patient will continue evaluation care per pulmonology. 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 She will need to continue to be followed by her primary care physician and other subspecialists as deemed appropriate. Comment: The above was discussed and reviewed with the patient, her family members present, and Dr. Valencia. This note was generated with [employer] software. It may contain incorrect words, spelling, and punctuation that were not noted in checking the note before signing. 11/27/17 1639 <Electronically signed by Reinier Lang MD> Date Reinier Lang MD Cosigner Signature (if applicable): Date CC: Rocael Valencia MD; Darien Mcclendon MD; Ortiz Markham MD; Mat Duffy MD Signed ECHOCARDIOGRAM COMPLETE Observed: 11/27/2017 Status: F Source: [place] 3:33 PM [facility] [place] [facility] Cardiovascular Services [address] [place] [address] Echo Complete W/ Contrast 11/27/17 1433 MR#: [id number] Acct: [id number] Name: MICHAEL GARCIA Rep #: [id number] : 1945 72 From: Reinier Lang MD Attending Dr: Fahad Sesay Status: ADM IN Ordering Dr: Fahad Sesay MD Date: 11/27/17 Location: ICU Sex: F C Admitted: 11/27/17 Reason For Study: AFIB Procedure This was a 2D Doppler, Color Flow transthoracic echocardiogram. The exam was of fair technical quality due to body habitus. The study was technically difficult. Contrast injection was performed. Exam performed portable in patient room. Left Ventricle Normal LV size. Left ventricular systolic function is normal. The estimated ejection fraction is 65 %. Transmitral diastolic flow velocities suggest moderate (stage 2) diastolic dysfunction (pseudonormal pattern). No regional wall motion abnormalities noted. Right Ventricle Normal RV size. Normal systolic function. Atria The left atrium is moderately enlarged. Normal right atrium. No doppler evidence for ASD. Mitral Valve There is moderate to severe mitral annular calcification. Extension of the mitral annular calcification onto the mitral valve leaflets. Mild focal mitral valve calcification of the anterior leaflet. Mild (1+) mitral valve insufficiency. Tricuspid Valve Normal tricuspid valve. Mild tricuspid valve insufficiency. Right ventricular systolic pressure estimated to be 51 mmHg. Aortic Valve Trisinus/trileaflet aortic valve. Mild focal aortic valve calcification. Mild aortic stenosis. Pulmonic Valve The pulmonic valve is not well visualized. Trivial pulmonic valve insufficiency. Great Vessels Normal sized aortic root. Pericardium/Pleural No pericardial effusion. Medication Diluted definity 2ml given slow IV push to enhance endocardial definition. MMode/2D Measurements AND Calculations LVIDd: 4.8 cm IVSd: 0.97 cm LVOT diam: 2.0 cm LVIDs: 3.1 cm LVPWd: 0.89 cm LVOT area: 3.1 cm2 RVDd: 4.1 cm FS: 36.9 % Ao root diam: 2.8 cm LAV(MOD-bp): 68.9 ml EDV(MOD-sp4): 99.4 ml LA dimension: 4.8 cm LAV(MOD-bp) Indexed: 33.8 ml/m2 ESV(MOD-sp4): 49.9 ml LAV(MOD-sp2): 83.0 ml EF(MOD-sp4): 49.8 % LAV(MOD-sp4): 55.6 ml EDV(MOD-sp2): 117.7 ml SV(MOD-sp4): 49.5 ml SV(MOD-sp2): 87.8 ml EF(MOD-sp2): 74.6 % LA A4 area: 20.4 cm2 RA A4 area: 12.4 cm2 Doppler Measurements AND Calculations MV E max zen: 151.0 cm/sec MV V2 max: 178.8 cm/sec Ao V2 max: 193.5 cm/sec MV A max zen: 122.4 cm/sec MV max P.8 mmHg Ao max P.0 mmHg MV E/A: 1.2 MV V2 mean: 108.0 cm/sec Ao V2 mean: 145.3 cm/sec MV mean P.3 mmHg Ao mean P.1 mmHg MV V2 VTI: 40.9 cm Ao V2 VTI: 39.7 cm MVA(VTI): 1.8 cm2 SHAQ(I,D): 1.9 cm2 SHAQ(V,D): 1.7 cm2 LV V1 max: 103.4 cm/sec SV(LVOT): 75.3 ml TR max zen: 325.5 cm/sec LV V1 max P.3 mmHg TR max P.6 mmHg LV V1 mean P.5 mmHg LV V1 mean: 75.6 cm/sec LV V1 VTI: 24.0 cm Interpretation Summary The study was technically difficult. Contrast injection was performed. Left ventricular systolic function is normal. The estimated ejection fraction is 65 %. The left atrium is moderately enlarged. There is moderate to severe mitral annular calcification. Extension of the mitral annular calcification onto the mitral valve leaflets. Mild focal mitral valve calcification of the anterior leaflet. Mild (1+) mitral valve insufficiency. Mild tricuspid valve insufficiency. Mild aortic stenosis. Trivial pulmonic valve insufficiency. Right ventricular systolic pressure estimated to be 51 mmHg. Transmitral diastolic flow velocities suggest diastolic dysfunction (pseudonormal pattern). Ordering Physician: Fahad Sesay Referring Physician: MAT DUFFY Performed By: Bianca Green, ADÁNCS, RVT 11/27/17 1532 Date Reinier Lang MD CC: Fahad Sesay; Mat Duffy MD Date Dictated: 11/27/17 1433 Date Transcribed: 11/27/17 1532 Business Support Administrator: Signed CONSULTATION Observed: 11/27/2017 Status: F Source: [place] 3:27 PM [facility] [place] [facility] Medical Records Department [address] [place] [address] Consultation 11/27/17 1246 MR#: [id number] Acct: [id number] Name: MICHAEL GARCIA Rep #: [id number] : 1945 72 From: Viviana RICHARDC PCP: Mat Duffy MD Status: ADM IN Y Location: ICU [id number] ADDENDUM by Rcoael Valencia MD on 11/27/17 at 1527 Code Visit Patient seen and examined independently in conjunction with nurse practitioner. All data, including note below, was personally reviewed and I agree with the added comments. Patient is well-known to us from previous admissions. Patient presented with a 3-4 day history of nausea, chest congestion, shortness of breath and chest pain. Patient was noted to be 83% on her home oxygen requirement of 3-1/2 L/min. Patient was also noted to be febrile at 102 F. On presentation, patient was hypertensive and requiring 5 L to make appropriate saturations. Cultures have been sent. A thoracentesis was scheduled to be completed, but no fluid could be found on ultrasound examination. Physical exam was independently performed. This did show significant decreased breath sounds noted in the left base. Bilateral hands were edematous with dermal atrophy. A murmur was appreciated at the left lower sternal border. Data did show a slightly elevated WBC count, but renal function was grossly at its baseline. Her enzymes are within normal limits. Patient did have leukocyte esterase and nitrites in the urine with 3+ bacteria and WBCs. Assessment and plan Clinical suspicion for pleural effusion secondary to congestive heart failure. Patient does have a history of crest syndrome, which is associated with pulmonary hypertension. This would be exacerbated by patient's reported A. fib with RVR on presentation. Patient also has what appears to be an acute cystitis without signs of pyelonephritis. Patient should be continued on antibiotics at this time. Await further workup. Repeat chest x-ray tomorrow. If patient persists in having what appears to be a pleural effusion, a CT scan of the chest can be obtained for ruling out central obstructive process. Patient will need to be followed closely as she has required intubation in the past. Patient would benefit from an echocardiogram for quantification of lung pressures. Echocardiogram was noted in 2016. 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 (3) Peripheral arterial occlusive disease Status: Chronic (4) S/P craniotomy Status: Chronic Comment: For intracerebral hemorrhage (5) Morbid obesity Status: Chronic (6) CKD (chronic kidney disease) stage 3, GFR 30-59 ml/min Status: Chronic (7) Obstructive sleep apnea Status: Chronic Comment: Untreated (8) Type 2 diabetes mellitus Status: Chronic Qualifiers: (9) History of cerebral hemorrhage Status: Chronic (10) Anemia Status: Chronic Qualifiers: (11) Aortic stenosis, mild Status: Chronic (12) Mitral stenosis Status: Chronic Qualifiers: Cardiac valve disease etiology: etiology unspecified Qualified Code(s): 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 (13) Stroke Status: Chronic Qualifiers: CVA mechanism: unspecified Qualified Code(s): I63.9 - Cerebral infarction, unspecified (14) Hyperlipidemia Status: Chronic Qualifiers: (15) Vitamin D deficiency Status: Chronic (16) Neuropathic pain Status: Chronic Reason for Consult Date of Consultation: 11/27/17 Reason for Consultation: Left pleural effusion, acute on chronic respiratory failure History of Present Illness: The patient is a 72 year old F known to pulmonary [facility], with past medical history as below who presented to the ED on 11/27/17 via EMS for complaints of a 3-4 day history of nausea, chest congestion, shortness of breath, and chest pain. Her chest pain was left-sided and she rated an 8 out of 10 with radiation to her left lateral chest, neck, and jaw. Patient described as a pressure, no relieving factors. Taking a deep breath aggravates the pain. Patient reports persistent nonproductive cough, subjective fevers, and hypoxia at 83% on her home oxygen requirement of 3.5 L. Throat is mildly sore. Patient does report aerosol use secondary to her scleroderma. She has also been having some urinary frequency, dysuria, and nocturia. Patient denies any recent sick contacts or illnesses. No recent steroids or antibiotics. No hemoptysis. Her temperature per EMS was 102.0 F. She was placed on a nonrebreather and given full dose aspirin en-route to the hospital. Initial vital signs BP 176/74, pulse 100, RR 30, 100.9 F orally, and 95% on 5 L of nasal oxygen. Chest x-ray on arrival showed an increase of airspace disease in the left lung obscuring the mid and lower lung parenchyma, diaphragm and costophrenic angle with fluid tracking along the right lower to upper chest wall periphery. Lab work revealed a mild leukocytosis of 11,600, hemoglobin of 8.2 (chronic, stable), normal coags, slightly elevated potassium at 5.5, BUN of 61 and creatinine of 1.92, which is also the patient's baseline. Glucose was 146. Lactate was normal at 1.4. Serum bicarb is 32, patient does have known chronic CO2 retention. Urinalysis indicative of infection, culture sent. Blood cultures were drawn and are pending. Influenza screening was normal. Urine strep/Legionella antigens were negative. The patient was given aerosols, antibiotics, IV Lopressor, Tylenol and Kayexalate in the ED. she was transferred to the CVICU as overflow from PCU since no beds were available. The patient was scheduled for a thoracentesis today and pulmonary was consulted to assist with management of her acute on chronic respiratory failure and suspected community-acquired pneumonia. She is currently requiring 5 L of oxygen supplementation with no significant complaints except dyspnea on exertion which is slightly worse than her normal. Pulmonary function tests in June 2017 showed presence of an irreversible very severe mixed ventilatory defect with a symmetric reduction in diffusing capacity. Pulmonary exercise test showed a 3 L oxygen requirement at rest and 4 L with ambulation. The patient was admitted in July 2017 with acute respiratory failure secondary to heart failure and was mechanically ventilated at that time. She was discharged on Lasix therapy and has been doing fairly well since. Patient had a split-night sleep study in September 2017 which showed an AHI of 51.4 events per hour. She had an EGD and colonoscopy 10/27/[address] Stevenson which showed duodenitis, shallow duodenal ulceration, gastritis, distal esophagitis, and diverticulosis with small sessile rectal polyp. She has not noticed any bleeding in her urine or stool. Past Medical History Past Medical History (Chronic Problems): Chronic Problems (Last Updated 11/27/17 @ 08:28 by Fahad Sesay MD) HTN (hypertension) (Chronic) 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) S/P craniotomy (Chronic) For intracerebral hemorrhage Obesity (BMI 30.0-34.9) (Chronic) Morbid obesity (Chronic) CKD (chronic kidney disease) stage 3, GFR 30-59 ml/min (Chronic) Obstructive sleep apnea (Chronic) Untreated Type 2 diabetes mellitus (Chronic) History of cerebral hemorrhage (Chronic) Anemia (Chronic) Aortic stenosis, mild (Chronic) Mitral stenosis (Chronic) mild Stroke (Chronic) Hyperlipidemia (Chronic) Vitamin D deficiency (Chronic) Neuropathic pain (Chronic) Allergies No Known Allergies Allergy (Verified 11/27/17 05:53) Home Medications: Ambulatory Orders Medication Instructions Recorded Surgical History: cholecystectomy, rotator cuff repair, - - Craniotomy. Psychiatric History: No pertinent psych hx ACTUARIAL ASSOCIATE History: No pertinent ACTUARIAL ASSOCIATE history Lives: Spouse/ Significant Other Smoking Status: Never smoker Tobacco Use: Non-smoker Alcohol: None Drugs: None - *Family History Maternal History Items: Cancer, Diabetes, Renal Disease Paternal History Items: Diabetes, Heart Disease, Renal Disease Review of Systems Constitutional: Reports: Fever - subjective, Weakness, Fatigue. Denies: Anorexia, Chills, Night Sweats, Weight Change Eyes: Denies: Vision Change HEENT: Reports: Nasal Congestion, Sore Throat. Denies: Difficulty Swallowing, Head Aches, Sinus Congestion Cardiovascular: Reports: Chest Pain - Currently resolved, Chest Tightness, Edema - Bilateral hands, chronic, Orthopnea, Palpitations. Denies: Light Headedness, Paroxysmal Noc. Dyspnea, Syncope Respiratory: Reports: Cough, Pleuritic Pain, Shortness of breath upon exertion, Wheezing. Denies: Hemoptysis, Sputum production Gastrointestinal: Reports: Dyspepsia, Nausea. Denies: Abdominal Pain, Constipation, Diarrhea, Hematemesis, Hematochezia, Melena, Vomiting Genitourinary: Reports: Dysuria, Frequency, Nocturia, Urgency. Denies: Hematuria Gynecological: Denies: Breast symptoms Musculoskeletal: Reports: Muscle pain - Generalized, chronic, Neck Pain - Resolved. Denies: Back Pain Skin: Reports: Dryness, Skin Changes - dryness LEs, discoloration hands. Denies: Wounds Neurological: Reports: Balance problems, - - generalized weakness. Denies: Change in Speech, Confusion, Difficulty swallowing, Focal weakness, Headaches, Numbness, Tingling, Tremor, Seizures Psychiatric: Denies: Anxiety, Depression Endocrine: Denies: Change in Body Habitus, Polydipsia, Polyuria Hematologic/ Lymphatic: Reports: Anemia, Easy Bruising, Hx of blood clot. Denies: Adenopathy, Easy Bleeding Subjective: The patient was seen and examined. She is sitting up in the chair in no acute distress. Her is at the bedside. She denies any current cough, chest pain, palpitations, or shortness of breath. She is not producing any sputum. She does have left-sided chest pain with deep inspiration. Objective: Clinical Impression(s) from Imaging Studies Chest X-Ray 11/27/17 06:08 IMPRESSION: No other recurrent airspace disease in the left mid and lower lung parenchyma likely pneumonia, component of mild to moderate left pleural effusion. Although the heart is mostly obscured, heart appears to be borderline in size possibly mildly enlarged. Electronically Signed: Selina Pickard MD at 6:52 EST , Service support , - Physical Exam General: Alert, Oriented x3, Cooperative, No apparent distress, Well developed, Well nourished, - - No conversational dyspnea HEENT: Atraumatic, Normocephalic Oral: Moist Mucosa, No Gingival or Mucosal Lesions/ Ulcerations Neck: Supple, No Nodes, Trachea Midline Lungs: - - Poor air movement in all lung pitt, some dullness to percussion to posterior left mid and base and symmetrical expansion, no tachypnea, no wheezing or rales Cardiovascular: Regular rate, Regular Rhythm, Normal S1, Normal S2, No murmurs, No rub noted, No Gallop Abdomen: Bowel Sounds Present, Soft, Non Tender, Non-Distended, Obese, Hernia - Umbilical, - - No CVA tenderness Extremities: No clubbing, No cyanosis, Capillary Refill Less than 3 Seconds, No Calf Tenderness, - - Bilateral hands/digits edematous with skin changes, R>L. Skin: No rashes, No breakdown, - - Venous stasis changes noted Musculoskeletal: No Tenderness to Palpation of Joints or Extremities Lymphatic: No Cervical, Supraclavicular, or Inguinal Adenopathy Neurological: Cranial nerves II-XII grossly intact, Neuro grossly intact, Motor Exam 5/5 strength throughout Psych/Mental Status: Alert and oriented to time, place, person, mood and affect Vital Signs Temp Pulse Resp BP Pulse Ox 97.8 F 76 25 H 141/102 H 100 11/27/17 09:00 11/27/17 11:54 11/27/17 11:04 11/27/17 11:08 11/27/17 11:00 Oxygen Flow Rate 5 Oxygen Delivery Method Nasal Cannula Weight: 214 lb 15.211 oz Body Mass Index (BMI) 35.7 Laboratory Tests Past 24 Hrs PT 16.0 H INR 1.3 APTT 48.9 H PT INR APTT Magnesium Total Bilirubin Pending POC Glucose POC Glucose 194 H Assessment/Plan RECOMMENDATIONS 1. Wean oxygen supplementation to keep saturations 88-92%. 2. Encourage incentive spirometer 3. Increase activity as tolerated 4. Continue aerosols 5. Continue antibiotics 6. Thoracentesis scheduled for around 1330 today, await fluid for cytology/culture 7. Continue diuresis, beta-stephania 8. Await echocardiogram, cardiology consult IMPRESSIONS 1. Acute on chronic hypoxic respiratory failure/end-stage COPD/pulmonary hypertension secondary to scleroderma/left pleural effusion Patient known in pulmonary clinic. Patient does present with findings consistent with acute hypoxic respiratory failure. Last had pneumonia in July 2017. Serum bicarb shows chronic CO2 retention, current value upper limits of normal. Imaging showing mild to moderate pleural effusion and questionable infiltrate. Does have a history of left-sided pleural effusion but worse on current imaging. Patient also with A. fib RVR on arrival but this has resolved as of 1115, unclear if etiology of fluid accumulation. Mild presenting leukocytosis, no significant cough or sputum production. Lactate normal. No fevers or chills. Infectious workup is pending. Continue antibiotics and plan for thoracentesis today, await cytology and culture studies. Serum protein and LDH were performed. Continue to wean oxygen supplementation to keep saturations greater than 88%. Continue aerosols. We will continue to follow. 2. New onset atrial fibrillation with RVR See #1. Patient had metoprolol 5 mg IV 1. She spontaneously converted back to a sinus rhythm around 1115 today. She is not anticoagulated but receiving DVT prophylaxis with heparin. Cardiology has been consulted. 3. Acute cystitis Cultures pending. Patient on appropriate antibiotics. No CVA tenderness. Management per hospitalist. 4. Hyperkalemia/CKD/morbid obesity/peripheral artery occlusive disease/crest variant of scleroderma/HTN/DM/INES/history of cerebral hemorrhage/anemia/stroke/HLD/neuropathic pain/vitamin D deficiency Complicates care, management, recovery, and prognosis. Patient was given Kayexalate in the ER for mild hyperkalemia, plan to recheck his in the a.m. Her renal disease appears to be at baseline. Thank you for the opportunity to participate in this patient's care, please do not hesitate to contact us with any further questions or concerns. This note was generated with [employer] software. It may contain incorrect words, spelling, and punctuation that were not noted in checking the note before signing. 11/27/17 1408 <Electronically signed by Viviana JENSEN> Date Viviana JENSEN Cosigner Signature (if applicable): Date CC: Rocael Valencia MD; Ortiz Markham MD; Mat Duffy MD Signed BEDSIDE GLUCOSE Collected: 11/27/2017 Status: F Source: [place] 12:12 PM [facility] TYPE CODE TESTS RESULT OUT OF REFERENCE UNITS RANGE LAB L501.080 70-110 mg/dL High BEDSIDE GLU 194 Result Comment: MANAGEMENT OF PATIENT CARE PER NURSING PROTOCOL Performed By: #### L501.080 #### [facility] Point of Care [address] 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 The patient is a 72 year old F with past medical history as mentioned above presented to the medicine because of chest pain. Her symptoms started 3-4 days ago with left-sided chest pain, sharp pain, 7 out of 10 in severity, extends to the left lateral chest, aggravated by coughing or taking a deep breath, associated with minimal shortness of breath and minimal cough and without relieving factors. The pain has been constant. She does have a chronic respiratory failure and she has been on oxygen at home at 3.5 L and she reported no significant worsening of her shortness of breath. She did complain of cough with minimal sputum production. She denies fever or chills. She denies sore throat, sinus or nasal congestion. She denied dizziness, lightheadedness, nausea, vomiting, sweating, syncope or presyncope. In the emergency room, patient was dyspneic and tachypneic, requiring up to 5 L of oxygen. She was afebrile, blood pressure elevated, heart rate stable. Her routine blood work is remarkable for mild leukocytosis, chronic anemia with hemoglobin of 8.2, potassium of 5.5 and creatinine of 1.92 which is also chronic. Lactic acid was normal. Troponin was negative. Urine analysis revealed turbid urine, positive for nitrite and leukocyte esterase, there was 50-100 WBCs and 3+ bacteria. EKG revealed sinus tachycardia, normal TN interval, normal QRS, no acute ischemic changes or cardiac arrhythmias. Chest x-ray showed left side pleural effusion with possible underlying infiltrate or consolidation. She is being admitted for left side pleural effusion, suspected community-acquired pneumonia, acute on chronic hypoxic respiratory failure, mild hyperkalemia and acute cystitis. Shortly after admission to the floor, patient developed new onset A. fib with RVR. Past Medical History Past Medical History (Chronic Problems): Chronic Problems (Last Updated 11/27/17 @ 08:28 by Fahad Sesay MD) HTN (hypertension) (Chronic) 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) S/P craniotomy (Chronic) For intracerebral hemorrhage Obesity (BMI 30.0-34.9) (Chronic) Morbid obesity (Chronic) CKD (chronic kidney disease) stage 3, GFR 30-59 ml/min (Chronic) Obstructive sleep apnea (Chronic) Untreated Type 2 diabetes mellitus (Chronic) History of cerebral hemorrhage (Chronic) Anemia (Chronic) Aortic stenosis, mild (Chronic) Mitral stenosis (Chronic) mild Stroke (Chronic) Hyperlipidemia (Chronic) Vitamin D deficiency (Chronic) Neuropathic pain (Chronic) Allergies No Known Allergies Allergy (Verified 11/27/17 05:53) Home Medications: Ambulatory Orders Medication Instructions Recorded Surgical History: cholecystectomy, rotator cuff repair, - - Craniotomy. Psychiatric History: No pertinent psych hx ACTUARIAL ASSOCIATE History: No pertinent ACTUARIAL ASSOCIATE history Lives: Spouse/ Significant Other Smoking Status: Never smoker Alcohol: None Drugs: None - *Family History Maternal History Items: Cancer, Diabetes, Renal Disease Paternal History Items: Diabetes, Heart Disease, Renal Disease Review of Systems Constitutional: Reports: Anorexia, Weakness, Fatigue. Denies: Chills, Fever Eyes: Denies: Blurred vision, Double vision, Drainage, Redness HEENT: Denies: Difficulty Hearing, Ear Pain, Eye Pain, Nasal Congestion, Sore Throat Cardiovascular: Reports: Chest Pain. Denies: Chest Pressure, Chest Tightness, Edema, Light Headedness, Orthopnea, Palpitations, Paroxysmal Noc. Dyspnea Respiratory: Reports: Cough, Pleuritic Pain, Shortness of Breath. Denies: Hemoptysis, Sputum production, Wheezing Gastrointestinal: Denies: Abdominal Pain, Constipation, Diarrhea, Nausea, Vomiting Genitourinary: Reports: Frequency. Denies: Dysuria, Hematuria Musculoskeletal: Denies: Arm Pain, Back Pain, Foot Pain Skin: Denies: Dryness, Rash Neurological: Denies: Balance problems, Double vision, Change in Speech, Slurred speech, Headaches, Incoordination, Numbness Psychiatric: Denies: Anxiety, Depression Endocrine: Denies: Change in Body Habitus, Polydipsia VTE Information - Inpt Only VTE Present on Admission: No VTE Mechan Device Prophylaxis: None VTE Pharm Prophylaxis ordered?: Yes - Physical Exam General: Alert, Oriented x3, Cooperative, - - She is dyspneic and tachypneic. HEENT: Atraumatic, PERRLA, EOMI Oral: Moist Mucosa, No Gingival or Mucosal Lesions/ Ulcerations Neck: Supple, No JVD, Negative Carotid Bruits, Trachea Midline, Thyroid Normal Size and Texture Lungs: No wheeze, No rales, Diminished, Rhonchi, Short of Breath, - - Markedly decreased breath sounds on the left base with dull percussion noted, scattered rhonchi. Cardiovascular: Regular rate, Regular Rhythm, Normal S1, Normal S2, No murmurs, PMI Normal, Tachycardic Abdomen: Bowel Sounds Present, Soft, Non Tender, Non-Distended, No Hepato-splenomegaly Extremities: No clubbing, No cyanosis, No edema Skin: No rashes, No breakdown Lymphatic: No Cervical, Supraclavicular, or Inguinal Adenopathy Neurological: Cranial nerves II-XII grossly intact, Motor Exam 5/5 strength throughout Psych/Mental Status: Normal Affect, Appropriate, Alert and oriented to time, place, person, mood and affect Vital Signs Temp Pulse Resp BP Pulse Ox 97.5 F L 84 24 H 165/63 H 97 11/27/17 08:15 11/27/17 08:30 11/27/17 08:15 11/27/17 08:15 11/27/17 08:15 Oxygen Flow Rate 5 Oxygen Delivery Method Nasal Cannula Weight: 214 lb 15.211 oz Body Mass Index (BMI) 35.7 Microbiology 11/27/17 06:19 Influenza Types A,B Direct FA (BRYCE) - Final Mucosa - Nose Laboratory Tests WBC 11.6 H (4.4-11.0) K/mm3 RBC 2.79 L (4.2-5.4) M/mm3 Hgb 8.2 L (12.0-15.0) g/dl Hct 27.2 L (37-47) % MCV 97.5 (81-99) fL MCH 29.4 (27.0-32.0) pg Clinical Impression(s) from Imaging Studies Chest X-Ray 11/27/17 06:08 IMPRESSION: No other recurrent airspace disease in the left mid and lower lung parenchyma likely pneumonia, component of mild to moderate left pleural effusion. Although the heart is mostly obscured, heart appears to be borderline in size possibly mildly enlarged. Electronically Signed: Selina Pickard MD at 6:52 EST , Service support , Assessment/Plan This is a 72 years old female patient presented to the medicine because of left-sided pleuritic chest pain, found to have left-sided pleural effusion, suspected community-acquired pneumonia, hyperkalemia, acute cystitis, acute on chronic hypoxic respiratory failure and shortly after admission, she developed A. fib with RVR. #1 suspected left lung community-acquired pneumonia: Reviewed, revealed left pleural effusion with underlying questionable infiltrate. She denied significant cough or sputum production. No fever or chills. She has mild leukocytosis. She had a history of pneumonia back in July,. Her lactic acid is normal. Patient complained of chest pain which seemed to be pleuritic. EKG revealed normal sinus rhythm without acute ischemic changes. Plan: Admit to PCU, cardiac monitoring, serial cardiac enzymes, blood culture, urine culture, sputum culture, pneumococcal and Legionella antigen, start IV Levaquin and Zosyn, bronchodilators, pulmonary consult, PT OT evaluation and treatment. #2 left pleural effusion: She does have a history of left pleural effusion on the previous chest x-ray but looks larger in size. Differential diagnosis could be due to parapneumonic effusion versus CHF. Plan: Diagnostic antiemetic thoracentesis, pleural fluid analysis for cell with differential, cytology, culture, pleural fluid and glucose, protein, LDH, pulmonary consult as above. #3 acute on chronic hypoxic respiratory failure: Patient has been on oxygen since July, for chronic respiratory failure. She never smoked but she does have a history of obstructive sleep apnea. At this time, she is dyspneic and tachypneic and requiring up to 5 L of oxygen. Plan as above, thoracentesis, IV antibiotics, wean off oxygen as tolerated. #4 acute cystitis: Urinalysis reviewed. Plan for urine culture, IV Zosyn and Levaquin as above. #5 new onset A. fib with RVR: This is a new onset, new diagnosis. Heart rate has been in 130s, blood pressure stable. Patient received 1 dose of IV metoprolol, rate still fast. Plan: We will give another dose of IV metoprolol, 2D echocardiogram, check serum magnesium, TSH, cardiology consult, 2D echocardiogram. #6 mild hyperkalemia: Unclear etiology, could be related to chronic kidney disease. Potassium is 5.5. EKG showed no acute changes. She received 1 dose of Kayexalate in the ER. Plan for IV fluids, repeat potassium later today, repeat BMP tomorrow morning. #7 stage III chronic kidney disease: Creatinine is around 1.4-2 mg/dL. Admission creatinine is 1.92, stable at baseline. #8 type 2 diabetes mellitus: ADA diet, Accu-Cheks, insulin sliding scale, continue home doses of Levemir insulin twice daily. #9 hypertension: Blood pressure stable, continue clonidine and metoprolol. #10 DVT prophylaxis: Subcu heparin. Other chronic medical problems: #1 chronic anemia. #2 Crest variant of scleroderma. #3 peripheral vascular disease. #4 obstructive sleep apnea. #5 history of stroke. #6 morbid obesity. #7 history of cerebral bleed status post craniectomy. This note was generated with [employer] dictation software. It may contain incorrect words, spelling, and punctuation that were not noted in checking the note before signing. Code Visit Inpatient E AND M: [id number] Init Hosp L3 11/27/17 1201 <Electronically signed by Fahad Sesay MD> Date Fahad Sesay MD Cosigner Signature: Date (if applicable) CC: Fahad Sesay; Mat Duffy MD Signed TROPONIN-I Collected: 11/27/2017 Status: F Source: [place] 9:30 AM [facility] Order Comment: 'TROP' Serial specimen #1, #2, #3, or #4: 2 TYPE CODE TESTS RESULT OUT OF RANGE REFERENCE UNITS LAB L501.4010 <0.06 ng/mL Normal 0.04 TROPONIN-I Result Comment: TROPONIN-I EXPECTED VALUES <0.05 NEGATIVE 0.06 - 0.59 AT RISK OF SC > OR = 0.60 SUGGEST SC Performed By: #### L501.4010 #### [facility] [address] [place], [address] PROTHROMBIN TIME W/INR Collected: 11/27/2017 Status: F Source: [place] 9:30 AM [facility] TYPE CODE TESTS RESULT OUT OF RANGE REFERENCE UNITS LAB L300.4150 11.7-14.9 SECONDS High PROTIME 16.0 LAB L300.4200 Normal INR 1.3 Performed By: #### L300.3900, L300.4310 #### [facility] [address] [place], [address] PARTIAL THROMBOPLAST Collected: 11/27/2017 Status: F Source: [place] TIME 9:30 AM [facility] TYPE CODE TESTS RESULT OUT OF REFERENCE UNITS RANGE LAB L300.4310 24.1-36.2 Seconds High PTT 48.9 Performed By: #### L300.3900, L300.4310 #### [facility] [address] [place], [address] MAGNESIUM Collected: 11/27/2017 Status: F Source: [place] 9:30 AM [facility] TYPE CODE TESTS RESULT OUT OF RANGE REFERENCE UNITS LAB L501.5200 1.6-2.6 mg/dL Normal MG 2.2 Result Comment: Please note revised Magnesium reference range effective 2017. Performed By: #### L501.5200, L501.9520 #### [facility] [address] [place], [address] THYROID STIM HORMONE Collected: 11/27/2017 Status: F Source: [place] (TSH) 9:30 AM [facility] TYPE CODE TESTS RESULT OUT OF RANGE REFERENCE UNITS LAB L501.9520 0.358-3.74 uIU/mL Normal TSH 0.56 Performed By: #### L501.5200, L501.9520 #### [facility] [address] [place], [address] LIVER PROFILE Collected: 11/27/2017 Status: F Source: [place] 9:30 AM [facility] Order Comment: Comments: from blood in lab. TYPE CODE TESTS RESULT OUT OF RANGE REFERENCE UNITS LAB L501.1500 6.4-8.2 g/dL Normal T PROT 7.6 LAB L501.1800 3.2-5.0 g/dL Low ALB 2.3 LAB L501.1950 2.2-4.2 g/dL High GLOB 5.3 LAB L501.4100 15-37 U/L Normal AST 22 LAB L501.4305 45-117 U/L Normal ALK P 85 LAB L501.4405 13-56 U/L Normal ALT 19 Result Comment: Please note revised ALT reference range effective 2017. LAB L501.4600 0.20-1.00 mg/dL Normal T BILI 0.30 LAB L501.4700 0.00-0.30 mg/dL Normal D BILI 0.12 Performed By: #### L500.3400, L504.2610 #### [facility] [address], [address] LDH Collected: 11/27/2017 Status: F Source: [place] 9:30 AM [facility] Order Comment: Comments: from blood in lab. TYPE CODE TESTS RESULT OUT OF RANGE REFERENCE UNITS LAB L504.2610 84-246 U/L Normal LDH 221 Performed By: #### L500.3400, L504.2610 #### [facility] [address] [place], [address] CHEST Observed: 11/27/2017 Status: F Source: [place] 9:03 AM [facility] Imaging Services [address] [place] [address] Chest MR#: [id number] Acct: [id number] Name: MICHAEL GARCIA Rep #: [id number] : 1945 F 72 From: Brett Arcos MD PCP: Mat Duffy MD Status: ADM IN Study: Chest Date of Exam: 11/27/17 Exam# [id number] Ordering Dr: Fahad Sesay MD STUDY: SUPERFICIAL ULTRASOUND - ASSESSMENT OF PLEURAL FLUID. REASON FOR EXAM: Female, 72 years old. Possible thoracentesis. TECHNIQUE: A superficial ultrasound was performed with real- time and static hui-scale imaging. COMPARISON: None. FINDINGS: Both right and left pleural spaces were examined by ultrasound. No effusion is seen. US/Chest IMPRESSION: No pleural effusion is seen. Electronically Signed: Brett Arcos MD at 15:18 EST Tel [phone], Service support , CC: Fahad Sesay; Mat Duffy MD Business Support Administrator: Signed EMERGENCY DEPARTMENT Observed: 11/27/2017 Status: F Source: [place] SUMMARY 7:53 AM [facility] Medical Records Department [address] [place], [place] [address] [address] Emergency Department Summary 11/27/17 0723 MR#: [id number] Acct: [id number] Name: MICHAEL GARCIA Rep #: [id number] : 1945 72 From: Trevor Hamm MD PCP: Mat Duffy MD Status: REG ER - ER Visit Summary Date of Service: 11/27/17 Chief Complaint: [] Presents with dyspnea and cough History of Present Illness: The patient is a 72 F [place] cough for 3 days. Gradual onset continuous. She has had a fever subjective chest pain for last 3 days that is sharp and aching on the left side. She is on home oxygen. She did get a flu shot. Her last ejection fraction was 70%. She was intubated in July secondary to respiratory failure. She has chronic kidney disease and anemia. Physical Examination: Vital signs reviewed temperature 100.9. General: Well-nourished well-developed Head: Normocephalic atraumatic Eyes: Pupils equal round and reactive to light extraocular movements intact ENT: TMs clear no hemotympanum no trauma Neck: Nontender full range of motion Cardiovascular: Regular rate rhythm no murmurs normal S1-S2 Respiratory: No distress but speaking in full sentences on nasal cannula clear to auscultation bilaterally chest nontender Abdomen: Soft nontender nondistended normal bowel sounds no masses Back: Nontender no CVA tenderness Extremities: Nontender active range of motion 4 extremities no trauma Skin: Normal color no trauma Neuro alert oriented cranial nerves II through XII intact normal strength sensation reflexes Test Results: [] Emergency Department Course and Treatment: [] EKG shows sinus at 103. No acute ischemia. Chest x-ray shows an infiltrate left-sided with pleural effusion. CBC is normal except white count 11.6. Hemoglobin is chronically low at 8.2. Chemistries normal except potassium 5.5. No EKG changes. Creatinine is 1.9 which is chronic. Urine analysis shows 3+ bacteria consistent with infection. Troponin negative. Urine culture pending. Blood culture pending. Lactate 1.4. Patient given oxygen albuterol Atrovent nebulizers with good relief of some of her symptoms. She is given oral Tylenol. She will be started on antibiotics ceftriaxone and azithromycin for community acquired pneumonia. She will be admitted. She remained stable on nasal cannula. Heart rate came down to 90s. I do not feel she needs fluids at this time. She is not in severe sepsis or septic shock. She also has a complicated urinary tract infection. She is given a dose of Kayexalate for her hyperkalemia without EKG changes. Treatment Plan: [] Disposition: [] Impression: [] Community acquired pneumonia Complicated urinary tract infection Chronic anemia Chronic renal insufficiency Hyperkalemia without EKG changes This note was generated with [employer] software. It may contain incorrect words, spelling, and punctuation that were not noted in review of the chart prior to signing ED Disposition - Plan for ED Patient: Chief Complaint: Shortness of Breath Referrals: Mat Duffy MD [Primary Care Provider] - What to do if you have Problems For any increased pain, shortness of breath, bleeding, nausea or vomiting, chest pain, or any unexpected problems, contact your Primary Care Provider. Call [facility] ([phone]) or report to the closest Emergency Room. Call 911 if necessary. 11/27/17 0753 <Electronically signed by Trevor Hamm MD> Date Trevor Hamm MD Cosigner Signature (If Indicated): Date CC: Mat Duffy MD URINALYSIS, COMPLETE Collected: 11/27/2017 Status: F Source: [place] 6:40 AM [facility] Order Comment: Microscopic field is filled. Other elements may be obscured. How was Urine Obtained? FLOORWORKER LASTING TO SPECIFY TYPE CODE TESTS RESULT OUT OF RANGE REFERENCE UNITS LAB L400.3000 Yellow COLOR Normal Yellow LAB L400.3050 Clear Normal CLARITY Turbid LAB L400.3200 Normal mg/dl Normal GLUCOSE, UR Normal LAB L400.3300 Negative mg/dL Normal BILIRUBIN URINE Negative LAB L400.3400 Negative mg/dl Normal KETONE UR Negative LAB L400.3465 1.002-1.030 Normal SP.GR. DIPSTX 1.020 LAB L400.3550 5.0 - 8.0 pH UR Normal 5.0 LAB L400.3600 Negative mg/dl High PROT 30 [facility] LAB L400.3700 Normal mg/dl Normal UROBILI Normal LAB L400.3750 Negative High NITRITE UR Positive LAB L400.3780 Negative /ul High 10 OCCULT BLOOD-UR LAB L400.3800 Negative /ul High LEUK ESTERASE 500 LAB L400.4050 0-5 /hpf WBC Normal 50-100 SEEN LAB L400.4100 0-5 /hpf 0 Normal RBC-UA SEEN LAB L400.4150 5-10 /hpf SQUAM Normal EPI 0-5 SEEN LAB L400.4300 None Seen /hpf 3+ Normal BACTERIA LAB L400.4350 <or=2+ /hpf 0 Normal MUCUS, URINE SEEN Performed By: #### L400.0001 #### [facility] [address] [place], [place], [address] Observed: 11/27/2017 Status: F Source: CHRISTOPHER LEGIONELLA ANTIGEN 6:40 AM [facility] URINE REPOSITORY Legionella, UR Legionella Antigen result interpretation: Negative Presumptive negative for Legionella pneumophila serogroup 1 antigen in urine, suggesting no recent or current infection. Legionella Ag, Urine Negative (See interpretation below) Performed By: #### M300.4500 #### [facility] [address] [place], [address] STREP Observed: 11/27/2017 Status: F Source: CHRISTOPHER PNEUMONIAE ANTIG(UR,CSF) 6:40 AM [facility] REPOSITORY S pneumo Ag URINE INTERPRETATION Negative Urine Presumptive negative for pneumococcal pneumonia, suggesting no current or recent pneumococcal infection. Infection due to S pneumoniae cannot be ruled out since the antigen present in the sample may be below the detection limit of the test. Strep pneumo Test Negative URINE (See interpretation below) Performed By: #### M300.4600 #### [facility] [address] [place], [place], [address] Observed: 11/27/2017 Status: F Source: CHRISTOPHER CULTURE, URINE 6:40 AM [facility] REPOSITORY Order Date: 11/27/17 Urine Culture ORGANISM 1: Klebsiella pneumoniae sp pneum [place] Count >100,000 Klebsiella pneumoniae sp pneum: REACTION Amoxacillin/Clavulanic Acid $ 4 S Ampicillin $ 8 R Ampicillin/Sulbactam $ <=2 S Cefazolin $ <=4 S Cefepime $ <=1 S Ceftriaxone $ <=1 S Ciprofloxacin $ <=0.25 S ESBL - Ertapenim $$$ <=0.5 S Gentamicin $ <=1 S Imipenem *NF <=0.25 S Levofloxacin $ <=0.12 S Nitrofurantoin $ <=16 S Piperacillin/Tazobactam $$ <=4 S Tobramycin $ <=1 S Trimethoprim/Sulfametho $ <=20 S (NF) indicates non-formulary drug at [facility]. Approval by Infectious Disease Specialist required before non-formulary drugs may be ordered and/or dispensed. Performed By: #### M100.0650 #### [facility] [address] [place], [place], [address] Observed: 11/27/2017 Status: F Source: [place] CULTURE, BLOOD (WB) 6:35 AM [facility] REPOSITORY BC No growth in 5 days. Performed By: #### M200.1000 #### [facility] [address] [place], [place], [address] Observed: 11/27/2017 Status: F Source: [place] INFLUENZA A+B (RAPID 6:19 AM [facility]) REPOSITORY FLU A/B Rapid Negative test results should be confirmed by culture. Order Rapid Viral Culture for Influenzae A+B ([id number]) if clinically indicated. Influenza Ag, Direct Presumptive NEGATIVE for Influenza A/B Antigen (See Note) Performed By: #### M101.0101 #### [facility] [address] [place], [place], [address] CHEST 1 VIEW Observed: 11/27/2017 Status: F Source: [place] (PORTABLE) 6:11 AM [facility] REPOSITORY [facility] Imaging Services [address] [place] [address] Chest 1 View (Portable) MR#: [id number] Acct: [id number] Name: GARCIAMICHAEL Rose Rep #: [id number] : 1945 F 72 From: Selina Pickard MD PCP: Mat Duffy MD Status: REG ER Study: Chest 1 View (Portable) Date of Exam: 11/27/17 Exam# [id number] Ordering Dr: Trevor Hamm MD STUDY: X-RAY CHEST REASON FOR EXAM: Female, 72 years old. Shortness of breath and fever TECHNIQUE: Single AP portable view of the chest. COMPARISON: 07/24/2017 FINDINGS: There are superimposed monitor leads. There is increase of airspace disease in the left lung obscuring the mid and lower lung parenchyma, diaphragm and costophrenic angle with fluid tracking along the right lower to upper chest will periphery. There is improved aeration in the right lung since previous examination, hazy opacification in the left lung. There is no right pleural effusion Obscured heart, mediastinum and jose f. Normal visualized pulmonary arteries. Obscured aortic arch and descending thoracic aorta. Obscured thoracic spine. Normal visualized ribs, clavicles, and shoulders. There is no demonstrated abnormality of the visualized soft tissue structures of the upper abdomen. RAD/Chest 1 View (Portable) IMPRESSION: No other recurrent airspace disease in the left mid and lower lung parenchyma likely pneumonia, component of mild to moderate left pleural effusion. Although the heart is mostly obscured, heart appears to be borderline in size possibly mildly enlarged. Electronically Signed: Selina Pickard MD at 6:52 EST , Service support , CC: Trevor Hamm MD; Mat Duffy MD Business Support Administrator: Signed CBC W/DIFF, AUTOMATED Collected: 11/27/2017 Status: F Source: CHRISTOPHER 6:05 AM [facility] REPOSITORY TYPE CODE TESTS RESULT OUT OF RANGE REFERENCE UNITS LAB L100.1000 4.4-11.0 K/mm3 High WBC 11.6 LAB L100.1200 4.2-5.4 M/mm3 Low RBC 2.79 LAB L100.1300 12.0-15.0 g/dl Low HGB 8.2 LAB L100.1400 37-47 % Low HCT 27.2 LAB L100.1500 81-99 fL Normal MCV 97.5 LAB L100.1600 27.0-32.0 pg Normal MCH 29.4 LAB L100.1700 32-36 g/gl Low MCHC 30.1 LAB L100.1810 11.6-14.6 % High RDW CV 15.3 LAB L100.1820 35.1-43.9 fl High RDW SD 51.8 LAB L100.1900 150-450 K/mm3 Normal PLT 253 LAB L100.2000 6.2-12.0 fl Normal MPV 9.7 LAB L100.2100 47-70 % High NEUT% 84.3 LAB L100.2200 19-41 % Low LY% 6.5 LAB L100.2300 0-10 % Normal MONO% 7.7 LAB L100.2400 0-5 % Normal EO% 1.1 LAB L100.2500 0-1 % Normal BASO% 0.1 LAB L100.2550 0.0-0.9 % Normal IM GRAN % 0.300 Result Comment: IG% - Immature Granulocytes (promyelocytes, myelocytes and metamyelocytes) > 1% indicates that a LEFT SHIFT is Present. LAB L100.2620 2.0-7.7 X10 3/uL High Absolute Neut 9.8 LAB L100.2720 0.83-4.51 X10 3/ul Low Absolute Lymph 0.75 Performed By: #### L100.0100 #### [facility] [address] [place], [place], [id number] LACTIC ACID Collected: 11/27/2017 Status: F Source: CHRISTOPHER 6:05 AM [facility] REPOSITORY Order Comment: Yes/No query for Sepsis Lactate Rule Y TYPE CODE TESTS RESULT OUT OF RANGE REFERENCE UNITS LAB L503.6005 0.4-2.0 mmol/L Normal LACTIC ACID 1.4 Performed By: #### L503.6005 #### [facility] [address] [place], [place], [address] BASIC METABOLIC Collected: 11/27/2017 Status: F Source: CHRISTOPHER PROFILE (BMP) 6:05 AM [facility] REPOSITORY Order Comment: 'TROP' Serial specimen #1, #2, #3, or #4: 1 TYPE CODE TESTS RESULT OUT OF RANGE REFERENCE UNITS LAB L501.0100 74-106 mg/dL High GLU 146 Result Comment: Fasting Glucose result greater than or equal to 126 mg/dL suggests DIABETES MELLITUS per A.D.A. criteria. Please note revised GLUCOSE reference range effective 2017. LAB L501.1000 7-18 mg/dL High BUN 61 LAB L501.1100 0.55-1.02 mg/dL High CREAT,SERUM 1.92 Result Comment: The validity of the calculated GFR AND GFRAA in patients over 70 years has not been determined. Clinical correlation is essential. LAB L501.1110 >60 mL/min Low EST GFR 27 Result Comment: Non- GFR Calc LAB L501.1115 >60 mL/min Low EST GFR - AA 33 Result Comment: GFR Calc LAB L501.1255 ml/min Normal Estimated CRCL 24.53 LAB L501.1300 10-20 RATIO High BUN/CRE 31.8 LAB L501.2200 8.5-10 mg/dL Normal .1 CA 8.7 LAB L501.5300 136-14 mmol/L Normal 5 NA 138 LAB L501.5600 3.5-5. mmol/L High 1 K 5.5 Result Comment: Moderate Hemolysis, Result may be falsely increased. LAB L501.5900 98-107 mmol/L Normal CL 99 LAB L501.6100 21.0-32.0 mmol/L Normal CO2 32.0 LAB L501.6200 5-15 Normal GAP 7 Performed By: #### L500.2500, L501.4010 #### [facility] [address] [place], [place], [address] TROPONIN-I Collected: 11/27/2017 Status: F Source: CHRISTOPHER 6:05 AM [facility] REPOSITORY Order Comment: 'TROP' Serial specimen #1, #2, #3, or #4: 1 TYPE CODE TESTS RESULT OUT OF RANGE REFERENCE UNITS LAB L501.4010 <0.06 ng/mL Normal < 0.02 TROPONIN-I Result Comment: TROPONIN-I EXPECTED VALUES <0.05 NEGATIVE 0.06 - 0.59 AT RISK OF SC > OR = 0.60 SUGGEST SC Performed By: #### L500.2500, L501.4010 #### [facility] [address] [place], [place], [address] Observed: 11/27/2017 Status: F Source: CHRISTOPHER CULTURE, BLOOD (WB) 6:05 AM [facility] 11/30 GRAM STAIN= GRAM POSITIVE RODS CALLED TO SEA TIESHA 11/29/17 AT 2021 BY CPOPIEL #1 Gram positive jackson suggestive of a diptheroid. Possible skin contamination, further Identification and sensitivity will be performed only by physician's request. ANAEROBIC BOTTLE NO GROWTH 5 DAYS. ORGANISM 1: Gram positive jackson Amount Growth Growth Performed By: #### M200.1000 #### [facility] [place], [address] PROGRESS Observed: 11/10/2017 Status: COMPLETED Source: [place] 4:08 PM [facility] REPOSITORY HNO ID: [id number] Author: Evangelina Mckeon) Service: (none) Author Type: Physician Casket Assembler Type: Progress Notes Filed: 11/14/2017 5:27 PM Note Text: HISTORY AND PHYSICAL Michael Garcia 1945 REFERRING PHYSICIAN: Self CHIEF COMPLAINT: hernia HPI: Michael is a 72 year old female self-referred with a complaint of a bulge and discomfort in her umbilical region x 1 week[address] Patient was on Dr. Nielson's schedule today, Dr. Nielson was called out of office for emergency and patient agreed to be seen by me. The patient notes discomfort in the umbilical area with straining and coughing. The symptoms have maintained over the past week since onset. She is able to reduce the bulge and it will sometimes reduce on its own as well. The patient notes no symptoms of bowel obstruction and denies nausea or vomiting. The patient previously had endoscopy by Dr. Nielson on 10/27/17 for evaluation of iron deficiency anemia, was noted to have some gastritis and duodenitis and had follow-up with GI earlier today. She notes no particular GI complaints currently. Patient has complex medical history significant for uncontrolled diabetes mellitus-patient reports recent blood sugars in the 400s, diabetic peripheral neuropathy, hypertension, hyperlipidemia, history of cerebellar hemorrhage, diastolic congestive heart failure, hypoxemia requiring supplemental oxygen, chronic kidney disease, osteoarthritis, legal blindness. She follows with Dr. Duffy for her chronic medical conditions, Dr. Romeo for her kidney disease and Dr. Carroll in pulmonology. She has been referred to cardiology but has not yet been evaluated, has appointment to see Dr. Mcclendon in December. The patient denies problems with anesthesia in the past. 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 Romeo, nephrology PAST SURGICAL HISTORY Procedure Laterality Date - ACHILLES TENDON SURGERY HX Right 1995 - BREAST BIOPSY CORE Left 2013 benign [facility] Colonoscopy w/bx [facility] - EGD W/O OR W/BRUSH/WASH 10/27/2017 EGD w/bx [facility] - LAPAROSCOPIC CHOLEYCYSTECTOMY Cholecystectomy, lap - REMOVAL OF TONSILS,<12 Y/O 1974 Tonsillectomy - REPAIR ROTATOR CUFF,ACUTE Right 1986 - REVISE MEDIAN N/CARPAL TUNNEL SURG Right 1989 - REVISE ULNAR NERVE AT ELBOW Right 1989 Current Outpatient Prescriptions: pantoprazole DR (PROTONIX) 40 mg tablet Take 1 tablet by mouth once daily. LANTUS SOLOSTAR 100 unit/mL (3 mL) inpn INJECT 39 UNITS SUBCUTANEOUSLY TWICE DAILY NOVOLOG FLEXPEN 100 unit/mL inpn INJECT 4 TIMES DAILY DIRECTED. GLUCOSE LESS THAN 150 = 0 U; 150-199=2 U; 200-249=4 U; 250-299=6 U; 300-349=8 U; >350=10 U gabapentin (NEURONTIN) 100 mg capsule Take one(1) tablet two(2) times daily. COMPOUNDED PRESCRIPTION Portable oxygen Dx: Hypoxemia. R09.02. 3 LPM via NC continuous. IRON PS COMPLEX/B12/FOLIC ACID (FERREX 150 FORTE ORAL) Take by mouth. ergocalciferol, vitamin D2, (VITAMIN D) 50,000 unit capsule Take 1 capsule by mouth once every month. gabapentin (NEURONTIN) 300 mg capsule Take 1 capsule by mouth daily at bedtime. hydrALAZINE (APRESOLINE) 100 mg tablet Take 1 tablet by mouth three times daily. cloNIDine HCl (CATAPRES) 0.1 mg tablet Take 1 tablet by mouth three times daily. metoprolol succinate ER (TOPROL XL) 25 mg 24 hr tablet Take 1 tablet by mouth once daily. furosemide (LASIX) 40 mg tablet Take 1.5 tablets by mouth once daily. atorvastatin (LIPITOR) 40 mg tablet Take 1 tablet by mouth daily at bedtime. For cholesterol. lidocaine HCl 2 % crea Apply to affected area. tiotropium (SPIRIVA WITH HANDIHALER) 18 mcg inhalation capsule Inhale 1 capsule as instructed once daily. Use with handihaler. albuterol HFA (VENTOLIN HFA) 90 mcg/actuation inhaler Inhale 2 Puffs as instructed every 4 hours as needed for Wheezing/Shortness of Breath. No current facility-administered medications for this visit. ALLERGIES: Review of patient's allergies indicates no known allergies. PERSONAL HISTORY: Social History Marital status: Spouse name: Years of education: Number of children: 1 Occupational History Occupation Employer Comment retired Social History Main Topics Smoking status: Never Smoker Smokeless status: Never Used Alcohol use: Yes 1.5 oz/week 1 Cans of Beer (12oz) per week Comment: ocas Drug use: No Sexual activity: No Social History Narrative Moved from [place] 2 years ago. Lives w/ spouse. 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 FAMILY HISTORY: FAMILY HISTORY Problem Relation Age of Onset - Cancer Mother lung - Coronary Artery Disease Father 63 - Breast Cancer Sister - Diabetes Maternal Grandmother REVIEW OF SYSTEMS GENERAL: No weight loss, malaise or fevers HEENT: Negative for frequent or significant headaches, No changes in hearing or vision, no nose bleeds or other nasal problems NECK: Negative for lumps, goiter, pain and significant neck swelling RESPIRATORY: See HPI CARDIOVASCULAR: See HPI GI: See HPI SKIN: Negative for lesions, rash, and itching HEMATOLOGY/LYMPHOLOGY: Negative for prolonged bleeding, bruising easily or swollen nodes ENDOCRINE: See HPI PHYSICAL EXAMINATION: General: The patient is 72 year old female, well nourished, well hydrated in no acute distress. The patient is oriented to time, place, and person. VITALS: There were no vitals taken for this visit. There is no height or weight on file to calculate BMI. HEENT: Normal cephalic, ataumatic, pupils are equally round, sclera are anicteric, mucous membranes are moist, oropharynx is clear. Neck has no masses, asymmetry or lymphadenopathy. Respiratory: Clear to auscultation and percussion. Normal respiratory excursion and pattern. Cardiac: Examination is regular rate and rhythm. Abdominal exam: +Obese abdomen, medium-sized reducible umbilical hernia. Soft, nontender, with no palpable masses. No hepatosplenomegaly. Rectal exam: exam deferred Extremities: no clubbing, cyanosis or edema. No adenopathy. Other: LABORATORY VALUES: As Noted RADIOLOGIC STUDIES: As Noted Assessment IMPRESSION: reducible umbilical hernia, multiple medical comorbidities PLAN: As noted previously patient was initially on Dr. Nielson's schedule, he was called out on emergency and patient was evaluated by me. I have reviewed the case with Dr. Nielson. No surgical intervention recommended at present time due to multiple medical comorbidities and subsequent high surgical risk as well as risk for wound healing issues particularly due to the elevated blood sugars. Hernia is not obstructed currently. Would recommend medical maximization, including control of blood sugars, weight loss, and cardiac and pulmonary clearance prior to scheduling surgery. In the meantime recommend avoiding lifting or straining, and supporting the hernia with hands if cough or sneeze. We reviewed red flag signs and symptoms in which case patient is instructed to seek immediate medical attention. I have discussed all of the above extensively with the patient, who verbalized understanding and agreed with the plan. Diagnoses: (K42.0) Umbilical hernia with obstruction, without gangrene (primary encounter diagnosis) (N18.3) CKD (chronic kidney disease) stage 3, GFR 30-59 ml/min (I10) Essential hypertension with goal blood pressure less than 130/85 (I50.31) Acute diastolic CHF (congestive heart failure) (HCC) (R09.02) Hypoxemia Return to Clinic: The patient is instructed to follow-up with me following medical maximization to discuss elective hernia repair I spent 30 minutes in the visit, with more than 50% of the total [id number]-egfd time of the visit in counseling / coordination of care. Evangelina Boyd, PA-C PROGRESS Observed: 11/07/2017 Status: COMPLETED Source: [place] 10:24 AM [facility] REPOSITORY O ID: [id number] Author: Bereket Hammer Service: (none) Author Type: Nurse Practitioner Type: Progress Notes Filed: 11/07/2017 12:14 PM Note Text: Michael Garcia a 71 year old female who is returning for follow up regarding iron deficiency anemia. I saw the patient in consultation on 10/15/17. That note has been reviewed. . The patient was seen by Dr. Nielson for upper endoscopy and colonoscopy 10/27/[address] [facility]. The procedure and pathology reports have been reviewed. Duodenitis on endoscopy - gastritis on pathology. H pylori negative. Rectal polyp without pathologic diagnosis. I have reviewed this patient the patient and her . Presenting complaint: The patient denies any GI complaints today. More concerned with possible umbilical hernia. Seeing Dr. Nielson this afternoon. Taking pantoprazole daily. I have mentioned that we could consider adding sucralfate, as a coating agent, depending on just how irritated her stomach and duodenum looked to Dr. Nielson. I have sent him a staff message. Last 6 Encounter Wt Readings: Date: Wt: 11/07/2017 97.5 kg (215 lb) 10/23/2017 0 kg (0 lb) 10/15/2017 95.3 kg (210 lb) 10/15/2017 95.3 kg (210 lb) 08/20/2017 100.7 kg (222 lb) 08/09/2017 98 kg (216 lb) REVIEW OF SYSTEMS: GENERAL: No weight loss, malaise or fevers GI: The patient states that her appetite has been adequate. She sometimes gets hungry. There has been no nausea, no vomiting. She denies dysphagia and denies odynophagia. There has not been indigestion or heartburn. There has not been regurgitation. Bowel habits have been regular. There has not been diarrhea. There has occasionally been mild constipation. The patient denies rectal bleeding. There has not been melena. No new or worsening abdominal pain. All other reviewed and negative other than HPI. 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 Romeo, nephrology PAST SURGICAL HISTORY Procedure Laterality Date - ACHILLES TENDON SURGERY HX Right 1995 - BREAST BIOPSY CORE Left 2013 benign - COLONOSCOP W/ OR W/O [facility] SPEC 10/27/2017 Colonoscopy w/bx [facility] - EGD W/O OR W/BRUSH/WASH 10/27/2017 EGD w/bx [facility] - LAPAROSCOPIC CHOLEYCYSTECTOMY Cholecystectomy, lap - REMOVAL OF TONSILS,<12 Y/O 1974 Tonsillectomy - REPAIR ROTATOR CUFF,ACUTE Right 1986 - REVISE MEDIAN N/CARPAL TUNNEL SURG Right 1989 - REVISE ULNAR NERVE AT ELBOW Right 1989 FAMILY HISTORY Problem Relation Age of Onset - Cancer Mother lung - Coronary Artery Disease Father 63 - Breast Cancer Sister - Diabetes Maternal Grandmother Current Outpatient Prescriptions: LANTUS SOLOSTAR 100 unit/mL (3 mL) inpn INJECT 39 UNITS SUBCUTANEOUSLY TWICE DAILY Disp: 75 mL Rfl: 3 NOVOLOG FLEXPEN 100 unit/mL inpn INJECT 4 TIMES DAILY DIRECTED. GLUCOSE LESS THAN 150 = 0 U; 150-199=2 U; 200-249=4 U; 250-299=6 U; 300-349=8 U; >350=10 U Disp: 45 mL Rfl: 1 gabapentin (NEURONTIN) 100 mg capsule Take one(1) tablet two(2) times daily. Disp: 60 capsule Rfl: 0 COMPOUNDED PRESCRIPTION Portable oxygen Dx: Hypoxemia. R09.02. 3 LPM via NC continuous. Disp: 1 Each Rfl: 0 IRON PS COMPLEX/B12/FOLIC ACID (FERREX 150 FORTE ORAL) Take by mouth. Disp: Rfl: ergocalciferol, vitamin D2, (VITAMIN D) 50,000 unit capsule Take 1 capsule by mouth once every month. Disp: 3 capsule Rfl: 3 gabapentin (NEURONTIN) 300 mg capsule Take 1 capsule by mouth daily at bedtime. Disp: 90 capsule Rfl: 3 hydrALAZINE (APRESOLINE) 100 mg tablet Take 1 tablet by mouth three times daily. Disp: 270 tablet Rfl: 1 cloNIDine HCl (CATAPRES) 0.1 mg tablet Take 1 tablet by mouth three times daily. Disp: 270 tablet Rfl: 1 metoprolol succinate ER (TOPROL XL) 25 mg 24 hr tablet Take 1 tablet by mouth once daily. Disp: 90 tablet Rfl: 3 furosemide (LASIX) 40 mg tablet Take 1.5 tablets by mouth once daily. Disp: 135 tablet Rfl: 1 atorvastatin (LIPITOR) 40 mg tablet Take 1 tablet by mouth daily at bedtime. For cholesterol. Disp: 90 tablet Rfl: 3 lidocaine HCl 2 % crea Apply to affected area. Disp: Rfl: pantoprazole DR (PROTONIX) 40 mg tablet Take 40 mg by mouth once daily. Disp: Rfl: tiotropium (SPIRIVA WITH HANDIHALER) 18 mcg inhalation capsule Inhale 1 capsule as instructed once daily. Use with handihaler. Disp: 30 capsule Rfl: 2 albuterol HFA (VENTOLIN HFA) 90 mcg/actuation inhaler Inhale 2 Puffs as instructed every 4 hours as needed for Wheezing/Shortness of Breath. Disp: 1 Inhaler Rfl: 0 No current facility-administered medications for this visit. SOCIAL HISTORY: Reviewed. PHYSICAL EXAMINATION: O2 per NC Blood pressure 114/57, pulse 71, height 165.1 cm (5' 5), weight 97.5 kg (215 lb). General Appearance: Well appearing, alert, in no acute distress, well-hydrated, well nourished. Skin: Skin color, texture, turgor normal, no suspicious rashes or lesions. Eyes: Anicteric sclera. Lungs: Lungs clear to auscultation. No wheezing, rhonchi, rales. Heart: RRR without murmur. Abdomen: Abdomen soft, non-tender. Bowel sounds normal. Extremities: No deformities, edema, skin discoloration, clubbing or cyanosis. Impression: gastritis/duodenitis Plan: Continue pantoprazole. Consider adding sucralfate ~ left a staff message for Dr. Nielson. Follow up in 6 weeks. Sooner, with any concerns. They agree with this plan. I have personally interviewed and examined this patient. I have reviewed the information that the MA entered for this encounter. Greater than 25 minutes total time used this visit to review old chart, review new information, update current history and evaluate patient. A majority of the time was spent in discussion and counseling to formulate the plan. Bereket Hammer RN TOP LOADER PROGRESS Observed: 11/01/2017 Status: COMPLETED Source: [place] 9:14 AM [facility] REPOSIT[facility] HNO ID: [id number] Author: Marnie Nielson Service: (none) Author Type: Physician Type: Progress Notes Filed: 11/01/2017 9:19 AM Note Text: OPERATIVE NOTATION FOR [facility] SURGICAL PROCEDURE. October 27, 2017 Michael Garcia [id number] female PROCEDURE: EGD WITH BIOPSY - 51795-484 and COLONOSCOPY WITH BIOPSY FORCEPS POLYPECTOMY- 00857-547 SURGEON: Marco Nielson M.D. FACS V BELT BUILDER: None DEPT: WQ PROVIDER: Q26=LsviyvyMarnie Nielson MD POS: [id number] DIAGNOSIS: (K29.00) Acute gastritis without hemorrhage, unspecified gastritis type (primary encounter diagnosis) (K63.5) Polyp of colon, unspecified part of colon, unspecified type ASA CLASS: 3 - Severe FINDINGS: COMPLICATIONS: None PMHx - PAST MEDICAL HISTORY Diagnosis Date - Cerebellar hemorrhage, acute (HCC) 04/04/2016 - CKD (chronic kidney disease) stage 3, GFR 30-59 ml/min 04/04/2016 - CREST variant of scleroderma (HCC) 04/04/2016 - Diabetic peripheral neuropathy associated with type 2 diabetes mellitus (HCC) 01/19/2016 - Essential hypertension with goal blood pressure less than 130/85 01/19/2016 - Hyperlipidemia 01/19/2016 - 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 Romeo, nephrology COMORBIDITIES - None, Dementia, CVA, HTN and NIDDM Post Op Occurrences - None Wound Classification - Clean Contaminated Operative note dictated in the [facility] dictation system. Marnie Nielson MD CNOP Observed: 10/27/2017 Status: COMPLETED Source: [place] 12:00 AM [facility] RE[facility]IT[facility] Operative Note (Enc) (GENSWS) Progress Notes: Marnie Nielson MD 11/01/2017 9:19 AM Signed OPERATIVE NOTATION FOR [facility] SURGICAL PROCEDURE. October 27, 2017 Michael Garcia [id number] female PROCEDURE: EGD WITH BIOPSY - 82269-074 and COLONOSCOPY WITH BIOPSY FORCEPS POLYPECTOMY- 64506-067 SURGEON: Marco Nielson M.D. FACS V BELT BUILDER: None DEPT: W PROVIDER: L47=RfhbuwmMarnie Nielson MD POS: 5M6=GCJSVTLIJG DIAGNOSIS: (K29.00) Acute gastritis without hemorrhage, unspecified gastritis type (primary encounter diagnosis) (K63.5) Polyp of colon, unspecified part of colon, unspecified type ASA CLASS: 3 - Severe FINDINGS: COMPLICATIONS: None PMHx - PAST MEDICAL HISTORY Diagnosis Date - Cerebellar hemorrhage, acute (HCC) 04/04/2016 - CKD (chronic kidney disease) stage 3, GFR 30-59 ml/min 04/04/2016 - CREST variant of scleroderma (HCC) 04/04/2016 - Diabetic peripheral neuropathy associated with type 2 diabetes mellitus (HCC) 01/19/2016 - Essential hypertension with goal blood pressure less than 130/85 01/19/2016 - Hyperlipidemia 01/19/2016 - 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 Romeo, nephrology COMORBIDITIES - None, Dementia, CVA, HTN and NIDDM Post Op Occurrences - None Wound Classification - Clean Contaminated Operative note dictated in the [facility] dictation system. Marnie Nielson MD Encounter Status:Closed by MARNIE NIELSON MD on 11/01/17 ALLERGIES ALLERGIES DATE TYPE / CODE NAME / CODE REACTION SEVERITY SOURCE 10/21/2018 Drug No Known Unknown [facility] Allergy/416 Allergies/Y74814 Hospital 784043(SNOM 0388(RXNORM) Repository ED CT) NG/47313949 NO KNOWN [facility] 6(SNOMED ALLERGIES [facility]) Repository Drug NO KNOWN [facility] Class/77477 ALLERGIES [facility] [place] 1003(SNOMED Repository CT) ENCOUNTERS ENCOUNTERS ADMIT/DISCHARGE ACCOUNT NUMBER ADMITTING ENCOUNTER LOCATION SOURCE CLASS 10/28/2018/10/28/19 [id number] Ambulatory BMSBuilding: [place] 19 BMS.[facility] Repository 10/23/2018 [id number] Ambulatory [facility] ding:MEDOUTP Repository 10/22/2018 [id number] Ambulatory [facility] ding:MEDOUTP Repository 10/21/2018 [id number] Ambulatory [facility] ding:MEDOUTP Repository 10/21/2018/10/21/19 [id number] Ambulatory BMSBuilding: [place] 19 BMS.[facility] Repository 10/01/2018 [id number] Ambulatory [facility] ding:US Repository 09/18/2018 [id number] Ambulatory [facility] ding:LAB Repository 09/09/2018/09/09/20 [id number] Ambulatory BMSBuilding: [place] 18 BMS.[facility] Repository 09/09/2018/09/09/20 [id number] Ambulatory BMSBuilding: [place] 18 BMS.[facility] Repository 09/09/2018/09/09/20 [id number] Ambulatory BMSBuilding: [place] 18 [facility] [place] 08/10/2018 [id number] Ambulatory [facility] ding:LAB Repository 07/16/2018 [id number] [facility] Repository 07/16/2018 [id number] [facility] ding[facility]WC Repository 07/03/2018/07/05/20 [id number] Ambulatory [place] Hospital ding:WC Repository 06/24/2018 [id number] [facility] ding:LAB.FUT Repository URE 06/09/2018/06/09/20 [id number] Ambulatory [place] Christopher[address] Hospital ding:LAB Repository 06/04/2018/06/04/20 [id number] Ambulatory BMSBuilding: [place] 18 BMS.[facility] access hospital Hospital Repository 06/03/2018 [id number] Ambulatory [facility] ding:LAB.FUT Repository URE 06/02/2018 [id number] [facility] ding:LAB.FUT Repository URE 06/01/2018/06/08/20 [id number] Ambulatory [place] Hospital ding:LAB Repository 05/25/2018 [id number] [facility] ding[facility]LAB Repository 05/19/2018/05/19/20 [id number] Ambulatory BMSBuilding: [place] 18 BMS.Critical access hospital Hospital Repository 05/19/2018 [id number] Ambulatory [facility] Hospital ding:PSN Repository 05/19/2018 [id number] Ambulatory BMSBuilding: [place] [facility] Hospital Repository 05/13/2018/05/13/20 [id number] Ambulatory BMSBuilding: [place] 18 BMS.[facility] Repository 05/12/2018 [id number] [facility] ding:LAB Repository 05/07/2018 [id number] [facility] ding:LAB Repository 04/28/2018/04/28/20 [id number] Ambulatory BMSBuilding: [place] 18 BMS.[facility] Repository 04/21/2018 [id number] [facility] ding:PSN Repository 04/21/2018 [id number] Ambulatory BMSBuilding: [place] [facility] Repository 04/16/2018 [id number] Ambulatory BMSBuilding: [place] [facility] [place]ository 04/07/2018/04/07/20 [id number] Ambulatory BMSBuilding: [place] 18 BMS.[facility] Repository 04/07/2018/04/07/20 [id number] Ambulatory BMSBuilding: [place] 18 BMS.[facility] Repository 04/02/2018/04/02/20 [id number] Ambulatory [address] ding:SDC Repository 04/02/2018 [id number] Ambulatory BMSBuilding: [place] BMS.CF.[facility] Repository 04/02/2018 [id number] [facility] 03/11/2018 [id number] Ambulatory BMSBuilding: [place] BMS.[facility] Repository 03/05/2018/03/06/20 [id number] Ambulatory [address] Repository 03/05/2018/03/05/20 [id number] Ambulatory BMSBuilding: [place] 18 BMS.[facility] Repository 03/01/2018/03/03/20 [id number] Jen Rosales Inpatient [address] ding:PCURoom Repository : XBW653Zqi: 1 03/01/2018 [id number] Jen Rosales Ambulatory BMSBuilding: [place] BMS.[facility] Repository 03/01/2018 [id number] Jen Rosales Ambulatory BMSBuilding: [place] Penny BMS.[facility] Repository 03/01/2018/03/03/20 [id number] Ambulatory BMSBuilding: [place] Repository 03/01/2018/03/03/20 [id number] Ambulatory BMSBuilding: [place] Repository 03/01/2018/03/03/20 [id number] Ambulatory BMSBuilding: [address] Repository 02/26/2018 [id number] Ambulatory [facility] ding:CVS Repository 02/26/2018 [id number] Ambulatory BMSBuilding: [place] BMS.CF.[facility] Repository 02/11/2018/02/17/20 [id number] Ambulatory [address] Repository 02/10/2018 [id number] Ambulatory [facility] ding:PSN Repository 01/22/2018/01/23/20 [id number] Ambulatory BMSBuilding: [place] 18 [facility] Repository 01/19/2018/01/23/20 [id number] [place], Inpatient [address] ding:PCURoom Repository : [id number]: 1 01/19/2018 [id number] [place], Ambulatory BMSBuilding: [place] BMS.[facility] Repository 01/19/2018 [id number] [place], Ambulatory BMSBuilding: [place] BMS.[facility] Repository 01/19/2018 [id number] [place], Ambulatory BMSBuilding: [place] [facility] Repository 01/19/2018 [id number] [place], Ambulatory BMSBuilding: [place] BMS..[facility] Repository 01/19/2018 [id number] [place], Ambulatory BMSBuilding: [place] BMS.[facility] Repository 01/19/2018 [id number] [place], Ambulatory BMSBuilding: [place] BMS.[facility] Repository 01/19/2018 [id number] [place], Ambulatory BMSBuilding: [place] [facility] Repository 01/19/2018 [id number] [place], Ambulatory BMSBuilding: [place] BMS..[facility] Repository 01/19/2018 [id number] [place], Ambulatory BMSBuilding: [place] BMS.CF.[facility] Repository 01/19/2018 [id number] [place], Ambulatory BMSBuilding: [place] BMS.[facility] Repository 01/08/2018 [id number] Ambulatory [facility] ding:MEDOUTP Repository 01/01/2018/01/02/20 [id number] Ambulatory BMSBuilding: [place] 18 BMS.[facility] Repository 12/23/2017/12/26/19 [id number] Ambulatory [address] Repository 12/22/2017 [id number] Ambulatory [facility] ding:LAB Repository 12/12/2017/12/18/19 [id number] [place], Inpatient [place] [address] BIANCA NASEEM Encounter [facility] Repository 12/12/2017/12/18/19 [id number] [place], Inpatient [address] MEDICAL Repository CENTERBuildi nRoom: 8121Bed: 12/12/2017/12/13/19 [id number] Emergency [address] ding:ED Repository 12/05/2017/12/10/19 [id number] Ambulatory BMSBuilding: [place] 18 [facility] Repository 11/27/2017/12/10/19 [id number] [place], Inpatient [address] ding:PCURoom Repository : [id number]: 1 11/27/2017 [id number] [place], Ambulatory BMSBuilding: [place] Ghasem BMS.[facility] Repository 11/27/2017 [id number] [place], Ambulatory BMSBuilding: [place] Ghas[place] [facility] Repository 11/27/2017 [id number] [place], Ambulatory BMSBuilding: [place] BMS.CF.[facility] Repository 11/27/2017 [id number] [place], Ambulatory BMSBuilding: [place] Ghasem BMS.CF.[facility] Repository 11/27/2017 [id number] [place], Ambulatory BMSBuilding: [place] Ghasem BMS.[facility] Repository 11/27/2017 [id number] [place], Ambulatory BMSBuilding: [place] Ghasem [facility] Repository 11/27/2017 [id number] [place], Ambulatory BMSBuilding: [place] Ghasem BMS.CF.[facility] Repository 11/27/2017 [id number] [place], Ambulatory BMSBuilding: [place] Ghasem BMS.CF.[facility] Repository 11/27/2017 [id number] [place], Ambulatory BMSBuilding: [place] Ghasem BMS.[facility] Repository 11/27/2017 [id number] [place], Ambulatory BMSBuilding: [place] Ghasem BMS.CF.[facility] Repository 11/27/2017 [id number] [place], Ambulatory BMSBuilding: [place] Ghasem BMS.[facility] Repository 11/27/2017 [id number] [place], Ambulatory BMSBuilding: [place] Ghasem BMS..[facility] Repository 11/27/2017 [id number] [place], Ambulatory BMSBuilding: [place] G[place] [facility] Repository 11/27/2017 [id number] [place], Ambulatory BMSBuilding: [place] Ghasem BMS.[facility] Repository 11/27/2017 [id number] [place], Ambulatory BMSBuilding: [place] Ghasem BMS..[facility] Repository 11/27/2017 [id number] [place], Ambulatory BMSBuilding: [place] Ghasem [facility] Repository 11/27/2017 [id number] [place], Ambulatory BMSBuilding: [place] Ghasem BMS.[facility] Repository 11/27/2017 [id number] [place], Ambulatory BMSBuilding: [place] BMS..[facility] Repository 11/27/2017 [id number] [place], Ambulatory BMSBuilding: [place] Ghasem [facility] Repository 11/27/2017 [id number] [place], Ambulatory BMSBuilding: [place] Ghasem BMS.[facility] Repository 11/27/2017 [id number] [place], Ambulatory BMSBuilding: [place] Ghasem BMS..[facility] Repository 11/27/2017 [id number] [place], Ambulatory BMSBuilding: [place] Ghasem [facility] Repository 11/27/2017 [id number] [place], Ambulatory BMSBuilding: [place] Ghasem BMS.CF.[facility] Repository 11/27/2017 [id number] [place], Ambulatory BMSBuilding: [place] Ghasem BMS.[facility] Repository 11/27/2017 [id number] [place], Ambulatory BMSBuilding: [place] Ghasem [facility] Repository 11/27/2017 [id number] [place], Ambulatory BMSBuilding: [place] G[place]em BMS.CF.[facility] Repository 11/27/2017 [id number] [place], Ambulatory BMSBuilding: [place] G[place]em BMS.CF.[facility] Repository 11/27/2017 [id number] [place], Ambulatory BMSBuilding: [place] Ghasem BMS.[facility] Repository 11/27/2017 [id number] [place], Ambulatory BMSBuilding: [place] Ghasem BMS.CF.[facility] Repository 11/27/2017 [id number] [place], Ambulatory BMSBuilding: [place] BMS.[facility] Repository 11/27/2017 [id number] [place], Ambulatory BMSBuilding: [place] G[place] [facility] Repository 11/27/2017 [id number] [place], Ambulatory BMSBuilding: [place] Ghasem BMS.CF.[facility] Repository 11/27/2017 [id number] [place], Ambulatory BMSBuilding: [place] G[place] BMS.[facility] Repository 11/27/2017 [id number] [place], Ambulatory BMSBuilding: [place] G[place]em BMS.[facility] Repository 11/27/2017/12/10/19 [id number] Ambulatory BMSBuilding: [address] Repository 11/27/2017/12/10/19 [id number] Ambulatory BMSBuilding: [address] Repository 11/27/2017/12/10/19 [id number] Ambulatory BMSBuilding: [address] Repository 11/26/2017/11/26/19 [id number] Ambulatory [address] Hospital ding:OT Repository 11/07/2017/11/07/19 [id number] Ambulatory [address] Repository 11/07/2017/11/07/19 [id number] Ambulatory [address] Repository PAYERS PAYERS ENCOUNTER GUARANTOR PAYER SUBSCRIBER SOURCE 10/28/2018 MICHAEL Robles Primary MICHAEL Diehl [id number] Insurance:HUMANA MCCORMICKDOB: [place]icy [id number] Number: Repository 87[address]Pcb: 850 [id number] [phone] () Date:3050-16-57VA[address] [address]XD: 10/28/2018 Secondary NOT GIVENUNK [place] Insurance:SELF PAY [facility] Number: Effective Repository Date:2018-10-26 10/23/2018 JEY Walker Primary MICHAEL Diehl [id number] Insurance:HUMANA MCCORMICKDOB: Community [place] PPOPolicy [id number], [place] Number: Repository [address]Aza: 850 [id number] [phone] () Date:2354-58-24DL[address] [address]FV: 10/23/2018 Secondary NOT GIVENUNK [place] Insurance:SELF PAY [facility] Number: Effective Repository Date:2018-10-21 10/22/2018 JEY Walker Primary MICHAEL Diehl [id number] Insurance:HUMANA MCCORMICKDOB: Community [place] PPOPolicy [id number] Number: Repository [address]Rqx: 850 [id number] [phone] () Date:5928-23-35TB[address] [address]VE: 10/22/2018 Secondary NOT GIVENUNK [place] Insurance:SELF PAY [facility] Number: Effective Repository Date:2018-10-21 10/21/2018 JEY Walker Primary MICHAEL Diehl [id number] Insurance:HUMANA MCCORMICKDOB: [place] PPOPolicy [id number] Number: Repository [address]Evx: 850 [id number] [phone] (HP) Date:0264-15-17CI [address] [address]DG: 10/21/2018 Secondary NOT GIVENUNK [place] Insurance:SELF PAY [facility] Number: Effective Repository Date:2018-10-21 10/21/2018 MICHAEL Robles Primary MICHAEL Robles [place] [id number] Insurance:HUMANA MCCORMICKDOB: Community [place] PPOPolicy [id number] Number: Repository [address]Qba: 850 [id number] [phone] () Date:3156-41-14XW [address] [address]IU: 10/21/2018 Secondary NOT GIVENUNK [place] Insurance:SELF PAY [facility] Number: Effective Repository Date:2018-10-20 10/01/2018 JEY Walker Primary MICHAEL Robles [place] [id number] Insurance:HUMANA MCCORMICKDOB: Community [place] PPOPolicy [id number], [place] Number: Repository [address]Zuo: 850 [id number] [phone] () Date:1233-50-11KM [address] [address]FO: 10/01/2018 Secondary NOT GIVENUNK [place] Insurance:SELF PAY [facility] Number: Effective Repository Date:2018-08-25 09/18/2018 JEY Walker Primary MICHAEL Robles [place] [id number] Insurance:HUMANA MCCORMICKDOB: [place] PP[place]olicy [id number] Number: Repository [address]Vfa: 850 [id number] [phone] () Date:4857-46-68KX [address] [address]OO: 09/18/2018 Secondary NOT GIVENUNK [place] Insurance:SELF PAY [facility] Number: Effective Repository Date:2018-09-18 09/09/2018 JEY Walker Primary MICHAEL Diehl [id number] Insurance:HUMANA MCCORMICKDOB: Community [place] PPOPolicy [id number], [place] Number: Repository [address]Pkf: 850 [id number] [phone] () Date:6339-46-07ZO [address] [address]XP: 09/09/2018 Secondary NOT GIVENUNK [place] Insurance:SELF PAY [facility] Number: Effective Repository Date:2018-09-08 09/09/2018 JEY Walker Primary MICHAEL Diehl [id number] Insurance:HUMANA MCCORMICKDOB: [place] PPOPolicy [id number] Number: Repository [address]Dju: 850 [id number] [phone] () Date:7729-92-16OL [address] [address]TQ: 09/09/2018 Secondary NOT GIVENUNK [place] Insurance:SELF PAY [facility] Number: Effective Repository Date:2018-09-09 09/09/2018 JEY Walker Primary MICHAEL Diehl [id number] Insurance:HUMANA MCCORMICKDOB: [place] PPOPolicy [id number], [place] Number: Repository [address]Yvc: (794) [id number] [phone] () Date:9732-87-63YE [address] [address]OJ: 09/09/2018 Secondary NOT GIVENUNK [place] Insurance:SELF PAY [facility] Number: Effective Repository Date:2018-09-02 08/10/2018 JEY Walker Primary MIHCAEL Diehl [id number] Insurance:HUMANA MCCORMICKDOB: [place] PPOPolicy [id number], [place] Number: Repository [address]Yny: (850 [id number] [phone] (HP) Date:6396-42-16KM [address] [address]JI: 08/10/2018 Secondary NOT GIVENUNK [place] Insurance:SELF PAY [facility] Number: Effective Repository Date:2018-08-10 07/16/2018 JEY Walker Primary MICHAEL Diehl [id number] Insurance:HUMANA MCCORMICKDOB: [place] PPOPolicy [id number], [place] Number: Repository [address]Lbf: (850 [id number] [phone] (HP) Date:6876-99-71AN [address] [address]UV: 07/16/2018 Secondary NOT GIVENUNK [place] Insurance:SELF PAY [facility] Number: Effective Repository Date:2018-07-08 07/16/2018 JEY S Primary MICHAEL Robles [place] [id number] Insurance:HUMANA MCCORMICKDOB: Community [place] PPOPolicy [id number], [place] Number: Repository [address]Rny: (850 [id number] [phone] () Date:4187-66-24US [address] [address]QJ: 07/16/2018 Secondary NOT GIVENUNK [place] Insurance:SELF PAY [facility] Number: Effective Repository Date:2018-07-06 07/03/2018 JEY S Primary MICHAEL Gleasonoster [id number] Insurance:HUMANA MCCORMICKDOB: Community [place] PPOPolicy [id number], [place] Number: Repository [id number]: (850 [id number] [phone] () Date:9590-02-06EA [address] [address]DC: 07/03/2018 Secondary NOT GIVENUNK [place] Insurance:SELF PAY [facility] Number: Effective Repository Date:2018-06-30 06/24/2018 JEY S Primary MICHAEL Gleasonoster [id number] Insurance:HUMANA MCCORMICKDOB: [place] PPOPolicy [id number], [place] Number: Repository [address]Qwp: (850 [id number] [phone] (HP) Date:0949-03-85PK [address] [address]DB: 06/24/2018 Secondary NOT GIVENUNK [place] Insurance:SELF PAY [facility] Number: Effective Repository Date:2018-05-25 06/09/2018 JEY S Primary MICHAEL Robles [place] [id number] Insurance:HUMANA MCCORMICKDOB: [place] PPOPolicy [id number], [place] Number: Repository 10[address]Zkm: 850 [id number] [phone] (HP) Date:4701-66-57SQ [address]4601WP: 06/09/2018 Secondary NOT GIVENUNK [place] Insurance:SELF PAY [facility] Number: Effective Repository Date:2018-06-09 06/04/2018 JEY S Primary MICHAEL Robles [place] [id number] Insurance:HUMANA MCCORMICKDOB: Community [place] PP[place]olicy [id number], [place] Number: Repository [address]Prl: 850 [id number] [phone] () Date:4270-64-59HX [address] [address]YX: 06/04/2018 Secondary NOT GIVENUNK [place] Insurance:SELF PAY [facility] Number: Effective Repository Date:2018-06-04 06/03/2018 JEY Walker Primary MICHAEL Gleasonoster [id number] Insurance:HUMANA MCCORMICKDOB: [place] PPOPolicy [id number], [place] Number: Repository [address]Mgq: 850 [id number] [phone] (HP) Date:6702-72-11RI [address]4601WP: 06/03/2018 Secondary NOT GIVENUNK [place] Insurance:SELF PAY [facility] Number: Effective Repository Date:2018-06-03 06/02/2018 JEY Walker Primary MICHAEL Diehl [id number] Insurance:HUMANA MCCORMICKDOB: [place] PPOPolicy [id number], [place] Number: Repository [address]Mwz: 850 [id number] [phone] () Date:9945-90-14XA [address] [place] [address]ED: 06/02/2018 Secondary NOT GIVENUNK Christopher Insurance:SELF PAY [facility] Number: Effective Repository Date:2018-05-25 06/01/2018 JEY S Primary MICHAEL Robles [place] [id number] Insurance:HUMANA MCCORMICKDOB: [id number] Number: Repository [address]Slm: 850 [id number] [phone] () Date:3281-48-26VG [address] [address]NU: 06/01/2018 Secondary NOT GIVENUNK [place] Insurance:SELF PAY [facility] Number: Effective Repository Date:2018-05-19 05/25/2018 JEY S Primary MICHAEL Gleason[place] [id number] Insurance:HUMANA MCCORMICKDOB: [place] [id number] Number[place] Repository [address]Ziv: (085) [id number] [phone] () Date:5089-82-59TF [address] [address]RX: 05/25/2018 Secondary NOT GIVENUNK [place] Insurance:SELF PAY [facility] Number: Effective Repository Date:2018-05-25 05/19/2018 Jey S Primary MICHAEL Robles [place] [id number] Insurance:HUMANA MCCORMICKDOB: [place] [id number] [address]Klh: 850 [id number] [phone]) Date:0931-69-65UE [address] [address]DR: 05/19/2018 Secondary NOT GIVENUNK [place] Insurance:SELF PAY [facility] Number: Effective Repository Date:2018-04-28 05/19/2018 Jey S Primary MICHAEL Robles [place] [id number] Insurance:HUMANA MCCORMICKDOB: [place] [id number] Number[place] Repository [address]Ptd: (850 [id number] [phone]) Date:3740-55-56SZ [address] [address]JA: 05/19/2018 Secondary NOT GIVENUNK [place] Insurance:SELF PAY [facility] Number: Effective Repository Date:2018-05-13 05/19/2018 JEY S Primary MICHAEL Robles [place] [id number] Insurance:HUMANA MCCORMICKDOB: [place] [id number] [address]Yoy: (850 [id number] [phone] () Date:0953-14-68RG [address] [address]NW: 05/19/2018 Secondary NOT GIVENUNK [place] Insurance:SELF PAY [facility] Number: Effective Repository Date:2018-05-19 05/13/2018 Jey S Primary MICHAEL Robles [place] [id number] Insurance:HUMANA MCCORMICKDOB: [place] [id number] Number: Repository [address]Xba: (850 [id number] [phone]) Date:4045-92-13DH [address] [address]TJ: 05/13/2018 Secondary NOT GIVENUNK [place] Insurance:SELF PAY [facility] Number: Effective Repository Date:2018-05-06 05/12/2018 Jey Walker Primary MICHAEL Robles [place] [id number] Insurance:HUMANA MCCORMICKDOB: [place] [id number] [facility] [place] Number: Repository [address]Fsd: 850 [id number] [phone] (HP) Date:5944-71-72IB [address]4601WP: 05/12/2018 Secondary NOT GIVENUNK Christopher Insurance:SELF PAY [facility] Number: Effective Repository Date:2018-05-12 05/07/2018 Jey Walker Primary MICHAEL Robles [place] [id number] Insurance:HUMANA MCCORMICKDOB: [place] [id number] Hospital for [facility]rippled [place] Number: Repository [address]Bnf: 850 [id number] [phone] (HP) Date:4365-84-66PS [address]4601WP: 05/07/2018 Secondary NOT GIVENUNK Christopher Insurance:SELF PAY [facility] Number: Effective Repository Date:2018-05-07 04/28/2018 Jey Walker Primary MICHAEL Gleason[place] [id number] Insurance:HUMANA MCCORMICKDOB: [place] [id number] Hospital for [facility] [place] Number: Repository [address]Teh: (850 [id number] [phone]) Date:1678-72-07TD [address] [address]PR: 04/28/2018 Secondary NOT GIVENUNK [place] Insurance:SELF PAY [facility] Number: Effective Repository Date:2018-04-28 04/21/2018 Jey Walker Primary MICHAEL [place] [id number] Insurance:HUMANA MCCORMICKDOB: [place] [id number] Hospital for [place]rippled [place] Number: Repository [address]Nkr: (127) [id number] [phone]) Date:7567-28-88GI [address] [place] [address]BP: 04/21/2018 Secondary NOT GIVENUNK Christopher Insurance:SELF PAY [facility] Number: Effective Repository Date:2018-04-14 04/21/2018 Jey Walker Primary MICHAEL Diehl [id number] Insurance:HUMANA MCCORMICKDOB: [place] [id number] Number: Repository [address]Kgb: 850 [id number] [phone] () Date:1922-82-89GV [address] [address]EO: 04/21/2018 Secondary NOT GIVENUNK [place] Insurance:SELF PAY [facility] Number: Effective Repository Date:2018-04-21 04/16/2018 Jey S Primary MICHAEL Robles [place] [id number] Insurance:HUMANA MCCORMICKDOB: [place] [id number] Number: Repository [address]Mlo: 850 [id number] [phone] () Date:7473-52-58SZ [address] [address]EE: 04/16/2018 Secondary NOT GIVENUNK [place] Insurance:SELF PAY [facility] Number: Effective Repository Date:2018-04-09 04/07/2018 Jey S Primary MICHAEL Gleasonoster [id number] Insurance:HUMANA MCCORMICKDOB: [place] [id number] Number: Repository 55774Kbg: 850 [id number] [phone] () Date:4454-51-64XN [address] [address]GR: 04/07/2018 Secondary NOT GIVENUNK Christopher Insurance:SELF PAY [facility] Number: Effective Repository Date:2018-04-07 04/07/2018 Jey S Primary MICHAEL Robles [place] [id number] Insurance:HUMANA MCCORMICKDOB: [place] [id number], [place] Number: Repository 87275Zbr: (850 [id number] [phone] (HP) Date:1329-94-83GB [address] [address]XB: 04/07/2018 Secondary NOT GIVENUNK [place] Insurance:SELF PAY [facility] Number: Effective Repository Date:2018-04-06 04/02/2018 Jey S Primary MICHAEL Robles [place] [id number] Insurance:HUMANA MCCORMICKDOB: [place] [id number] Number: Repository 07204Mbr: (850 [id number] [phone] (HP) Date:1975-17-98UW [address] [address]OQ: 04/02/2018 Secondary NOT GIVENUNK [place] Insurance:SELF PAY [facility] Number: Effective Repository Date:2018-03-13 04/02/2018 Jey S Primary MICHAEL Robles [place] [id number] Insurance:HUMANA MCCORMICKDOB: [place] [id number], [place] Number: Repository 11377Igg: 850 [id number] [phone] (HP) Date:5348-06-24IO [address] [address]XV: 04/02/2018 Secondary NOT GIVENUNK [place] Insurance:SELF PAY [facility] Number: Effective Repository Date:2018-04-02 04/02/2018 Jey S Primary MICHAEL Robles [place] [id number] Insurance:HUMANA MCCORMICKDOB: [place] [id number], [place] Number: Repository [address]Ehp: 850 [id number] [phone] (HP) Date:2962-66-83UR [address] [address]OY: 04/02/2018 Secondary NOT GIVENUNK Christopher Insurance:SELF PAY [facility] Number: Effective Repository Date:2018-04-02 03/11/2018 Jey Walker Primary NOT GIVENUNK Christopher [id number] Insurance[place] Number: Effective Repository [address]Qex: (959) Date:2018-02-17 [phone] () 03/05/2018 Jey S Primary MICHAEL Robles [place] [id number] Insurance:HUMANA MCCORMICKDOB: [place] [id number], [place] Number: Repository [address]Pho: [id number] [phone] Date:4175-98-70KQ [address] [place] [address]CT: 03/05/2018 Secondary NOT GIVENUNK Christopher Insurance:SELF PAY [facility] Number: Effective Repository Date:2018-03-05 03/01/2018 Jey S Primary MICHAEL oRbles Christopher [id number] Insurance:HUMANA MCCORMICKDOB: [place] [id number], [place] Number: Repository [address]Eth: [id number] [phone] Date:3203-21-07ET [address] [place] [address]QL: 03/01/2018 Secondary NOT GIVENUNK Christopher Insurance:SELF PAY [facility] Number: Effective Repository Date:2018-03-01 03/01/2018 Jey S Primary MICHAEL Robles [place] [id number] Insurance:HUMANA MCCORMICKDOB: [place] [id number] Number: Repository [address]Kvc: [id number] [phone] Date:3056-66-40ZL [address] [place] [address]GA: 03/01/2018 Secondary NOT GIVENUNK [place] Insurance:SELF PAY [facility] Number: Effective Repository Date:2018-03-01 03/01/2018 Jey Walker Primary MICHAEL Robles Christopher [id number] Insurance:HUMANA MCCORMICKDOB: [place] [id number] Number: Repository 90653Ydx: [id number] [phone] Date:3475-57-94LH [address] [place] [address]GH: 03/01/2018 Secondary NOT GIVENUNK [place] Insurance:SELF PAY [facility] Number: Effective Repository Date:2018-03-01 03/01/2018 Jey Walker Primary MICHAEL Robles [place] [id number] Insurance:HUMANA MCCORMICKDOB: [place] [id number], [place] Number: Repository [address]Gzr: [id number] [phone] Date:7260-12-13WB [address] [place] [address]WM: 03/01/2018 Secondary NOT GIVENUNK Christopher Insurance:SELF PAY [facility] Number: Effective Repository Date:2018-03-01 03/01/2018 Jey Walker Primary MICHAEL Gleasonoster [id number] Insurance:HUMANA MCCORMICKDOB: [place] [id number] Number: Repository 94[address]Tiv: [id number] [phone] Date:0425-30-12DO [address] [place] [address]ZC: 03/01/2018 Secondary NOT GIVENUNK [place] Insurance:SELF PAY [facility] Number: Effective Repository Date:2018-03-01 03/01/2018 Jey Walker Primary MICHAEL Diehl [id number] Insurance:HUMANA MCCORMICKDOB: [place] PP[place] [id number], [place] Number: Repository [address]395Mny: (682) [id number] [phone] (HP) Date:0351-58-24YT [address] [place] [address]ER: 03/01/2018 Secondary NOT GIVENUNK Christopher Insurance:SELF PAY [facility] Number: Effective Repository Date:2018-03-01 02/26/2018 Jey Walker Primary MICHAEL Diehl [id number] Insurance:HUMANA MCCORMICKDOB: [place] [id number] Number: Repository [address]Ciq: [id number] [phone] Date:8498-90-29UP [address] [place] [address]QG: 02/26/2018 Secondary NOT GIVENUNK Christopher Insurance:SELF PAY [facility] Number: Effective Repository Date:2018-02-17 02/26/2018 Jey Walker Primary MICHAEL Robles [place] [id number] Insurance:HUMANA MCCORMICKDOB: [place] [id number], [place] Number: Repository 99888Ibm: [id number] [phone] Date:2047-05-36SX [address] [place] [address]CW: 02/26/2018 Secondary NOT GIVENUNK [place] Insurance:SELF PAY [facility] Number: Effective Repository Date:2018-02-26 02/10/2018 Jey Walker Primary MICHAEL Gleasonoster [id number] Insurance:HUMANA MCCORMICKDOB: [place] PP[place] [id number] Hospital for [facility]rippled [facility] [place] Number: Repository [address]Gjq: [id number] [phone] Date:2683-48-77BZ [address] [place] [address]KA: 02/10/2018 Secondary NOT GIVENUNK Christopher Insurance:SELF PAY [facility] Number: Effective Repository Date:2018-01-01 01/22/2018 Jey S Primary MICHAEL Gleasonoster [id number] Insurance:HUMANA MCCORMICKDOB: [place] [id number] Number: Repository [address]Ptr: [id number] [phone] Date:7939-93-34OM [address] [place] [address]JU: 01/22/2018 Secondary NOT GIVENUNK [place] Insurance:SELF PAY [facility] Number: Effective Repository Date:2018-01-22 01/19/2018 Jey S Primary MICHAEL Robles [place] [id number] Insurance:HUMANA MCCORMICKDOB: [place] PP[place] [id number], [place] Number: Repository 87672Ajp: [id number] [phone] Date:2241-74-74SY [address] [place] [address]SG: 01/19/2018 Secondary NOT GIVENUNK Christopher Insurance:SELF PAY [facility] Number: Effective Repository Date:2018-01-19 01/19/2018 Jey S Primary MICHAEL Gleasonoster [id number] Insurance:HUMANA MCCORMICKDOB: [place] PP[place]icy [id number], [place] Number: Repository 313[address]Cjv: (124) [id number] [phone] Date:7591-76-37PM [address] [place] [address]XQ: 01/19/2018 Secondary NOT GIVENUNK [place] Insurance:SELF PAY [facility] Number: Effective Repository Date:2018-01-19 01/19/2018 Jey S Primary MICHAEL Diehl [id number] Insurance:HUMANA MCCORMICKDOB: [place] [id number] Number: Repository [address]Aam: [id number] [phone] Date:5854-42-74HO [address] [place] [address]EL: 01/19/2018 Secondary NOT GIVENUNK [place] Insurance:SELF PAY [facility] Number: Effective Repository Date:2018-01-19 01/19/2018 Jey Walker Primary MICHAEL Diehl [id number] Insurance:HUMANA MCCORMICKDOB: [place] [id number] Number: Repository 236[address]Gnp: [id number] [phone] Date:6887-96-45TF [address] [place] [address]LT: 01/19/2018 Secondary NOT GIVENUNK [place] Insurance:SELF PAY [facility] Number: Effective Repository Date:2018-01-19 01/19/2018 Jey S Primary MICHAEL Robles [place] [id number] Insurance:HUMANA MCCORMICKDOB: [place] PP[place] [id number] Number: Repository 16710Dwe: [id number] [phone] Date:8207-73-05BZ [address] [place] [address]XU: 01/19/2018 Secondary NOT GIVENUNK [place] Insurance:SELF PAY [facility] Number: Effective Repository Date:2018-01-19 01/19/2018 Jey S Primary MICHAEL Gleasonoster [id number] Insurance:HUMANA MCCORMICKDOB: [place] PP[place]icy [id number], [place] Number: Repository 498[address]Cdq: [id number] [phone] Date:7767-55-12II [address] [place] [address]RP: 01/19/2018 Secondary NOT GIVENUNK Christopher Insurance:SELF PAY [facility] Number: Effective Repository Date:2018-01-19 01/19/2018 Jey S Primary MICHAEL Robles [place] [id number] Insurance:HUMANA MCCORMICKDOB: [place] PP[place]olicy [id number] Hospital for [facility]rippled [facility] [place] Number: Repository [address]Tmd: [id number] [phone] Date:9886-60-15OU [address] (HP) [address] [place] [address]ZC: 01/19/2018 Secondary NOT GIVENUNK Christopher Insurance:SELF PAY [facility] Number: Effective Repository Date:2018-01-19 01/19/2018 Jey S Primary MICHAEL Robles [place] [id number] Insurance:HUMANA MCCORMICKDOB: [place] PPOPolicy [id number] Hospital for [place]rippled [place] Number: Repository [address]Vnm: [id number] [phone] Date:3080-85-68DI [address] (HP) [address] [place] [address]GE: 01/19/2018 Secondary NOT GIVENUNK [place] Insurance:SELF PAY [facility] Number: Effective Repository Date:2018-01-19 01/19/2018 Jey S Primary MICHAEL Robles [place] [id number] Insurance:HUMANA MCCORMICKDOB: [place] PP[place] [id number] Hospital for [place] [place] Number: Repository [address]71Szc: [id number] [phone] Date:7584-66-02YW [address] [place] [address]BX: 01/19/2018 Secondary NOT GIVENUNK [place] Insurance:SELF PAY [facility] Number: Effective Repository Date:2018-01-19 01/19/2018 Jey S Primary MICHAEL Robles Christopher [id number] Insurance:HUMANA MCCORMICKDOB: [place] PP[place]ol[place] [id number] Hospital for [place]rippled [place] Number: Repository [address]68Jyu: [id number] [phone] Date:1107-36-13UN [address] [place] [address]GD: 01/19/2018 Secondary NOT GIVENUNK [place] Insurance:SELF PAY [facility] Number: Effective Repository Date:2018-01-19 01/19/2018 Jey Walker Primary MICHAEL Robles [place] [id number] Insurance:HUMANA MCCORMICKDOB: [place] PP[place]olicy [id number] Number: Repository [address]93Bta: [id number] [phone] Date:1468-90-66LU [address] [place] [address]TN: 01/19/2018 Secondary NOT GIVENUNK Christopher Insurance:SELF PAY [facility] Number: Effective Repository Date:2018-01-19 01/08/2018 Jey Walker Primary MICHAEL Robles Christopher [id number] Insurance:HUMANA MCCORMICKDOB: [place] PP[place]icy [id number][place] Number: Repository [address]Pee: [id number] [phone] Date:7536-74-71MZ [address] [place] [address]JZ: 01/08/2018 Secondary NOT GIVENUNK [place] Insurance:SELF PAY [facility] Number: Effective Repository Date:2018-01-06 01/01/2018 Jey Walker Primary MICHAEL Robles Christopher [id number] Insurance:HUMANA MCCORMICKDOB: [place] PP[place]icy [id number] Number: Repository 15205Raa: [id number] [phone] Date:4606-28-03NW [address] [place] [address]GG: 01/01/2018 Secondary NOT GIVENUNK [place] Insurance:SELF PAY [facility] Number: Effective Repository Date:2017-12-30 12/22/2017 Jey Walker Primary MICHAEL Robles [place] [id number] Insurance:HUMANA MCCORMICKDOB: [place] PPOPolicy [id number] Number: Repository [address]Ooq: [id number] [phone] Date:6971-89-24UG [address] [place] [address]XF: 12/22/2017 Secondary NOT GIVENUNK [place] Insurance:SELF PAY [facility] Number: Effective Repository Date:2017-12-22 12/12/2017 MICHAEL Robles Primary MICHAEL Robles [facility] MCCORMICKDOB: Insurance:HUMANA MCCORMICKDOB: [facility] MEDICARE [facility] [id number] Number: [place] [id number]: 850) Date: 100-8594 () 12/12/2017 Jey S Primary MICHAEL Robles [place] [id number] Insurance:HUMANA MCCORMICKDOB: [place] PPOPolicy [id number] Number: Repository [address]23Ljs: [id number] [phone] Date:9303-70-35IG [address] [place] [address]PG: 12/12/2017 Secondary NOT GIVENUNK [place] Insurance:SELF PAY [facility] Number: Effective Repository Date:2017-12-12 12/05/2017 Jey S Primary MICHAEL Robles [place] [id number] Insurance:HUMANA MCCORMICKDOB: [place] PPOPolicy [id number] Number: Repository [address]Mmb: [id number] [phone] Date:9647-65-47HY [address] [place] [address]JQ: 12/05/2017 Secondary NOT GIVENUNK Christopher Insurance:SELF PAY [facility] Number: Effective Repository Date:2017-12-05 11/27/2017 Jey S Primary MICHAEL Robles Christopher [id number] Insurance:HUMANA MCCORMICKDOB: [place] PPOPolicy [id number] Number: Repository [address]116Tdi: [id number] [phone] Date:7138-70-45CU [address] [place] [address]AN: 11/27/2017 Secondary NOT GIVENUNK Christopher Insurance:SELF PAY [facility] Effective Repository Date:2017-11-27 11/27/2017 Jey S Primary MICHAEL Robles Christopher [id number] Insurance:HUMANA MCCORMICKDOB: [facility] [employer] [id number], [place] Number: Repository [address]Adb: [id number] [phone] Date:2506-94-48HQ [address] [place] [address]EX: 11/27/2017 Secondary NOT GIVENUNK [place] Insurance:SELF PAY [facility] Number: Effective Repository Date:2017-11-27 11/27/2017 Jey S Primary MICHAEL Robles [place] [id number] Insurance:HUMANA MCCORMICKDOB: [place] PPOPolicy [id number], [place] Number: Repository [address]Ayy: [id number] [phone] Date:9589-48-87NC [address] [place] [address]ZM: 11/27/2017 Secondary NOT GIVENUNK Christopher Insurance:SELF PAY [facility] Number: Effective Repository Date:2017-11-27 11/27/2017 Jey S Primary MICHAEL Robles [place] [id number] Insurance:HUMANA MCCORMICKDOB: [place] PPOPolicy [id number] Number: Repository 28195Jsg: [id number] [phone] Date:6578-88-01RE [address] [place] [address]SK: 11/27/2017 Secondary NOT GIVENUNK [place] [facility] Number: Effective Repository Date:2017-11-27 11/27/2017 Jey Walker Primary MICHAEL Diehl [id number] Insurance:HUMANA MCCORMICKDOB: [facility] [place] [facility]Policy [id number], [place] Number: Repository [address]Pir: [id number] [phone] Date:9552-31-12PX [address] [place] [address]ZH: 11/27/2017 Secondary NOT GIVENUNK Christopher Insurance:SELF PAY [facility] Number: Effective Repository Date:2017-11-27 11/27/2017 Jey Walker Primary MICHAEL Robles Christopher [id number] Insurance:HUMANA MCCORMICKDOB: [place] PPOPolicy [id number] Number: Repository 94336Kgw: [id number] [phone] Date:3125-50-83XF [address] () [address] [place] [address]JM: 11/27/2017 Secondary NOT GIVENUNK [place] Insurance:SELF PAY [facility] Number: Effective Repository Date:2017-11-27 11/27/2017 Jey Walker Primary MICHAEL Diehl [id number] Insurance:HUMANA MCCORMICKDOB: [place] PPOPolicy [id number] Number[place] Repository [address]Kgk: [id number] [phone] Date:9960-29-38XT [address] [place] [address]CE: 11/27/2017 Secondary NOT GIVENUNK [place] Insurance:SELF PAY [facility] Number: Effective Repository Date:2017-11-27 11/27/2017 Jey Walker Primary MICHAEL Diehl [id number] Insurance:HUMANA MCCORMICKDOB: [place] PPOPolicy [id number] Number: Repository [address]Cvx: [id number] [phone] Date:3302-17-47YF [address] () [address] [place] [phone]: 11/27/2017 Secondary NOT GIVENUNK [place] Insurance:SELF PAY [facility] Number: Effective Repository Date:2017-11-27 11/27/2017 Jey Walker Primary MICHAEL Dielh [id number] Insurance:HUMANA MCCORMICKDOB: [place]ARE PP[place]olicy [id number] Number: Repository [id number]: [id number] [phone] Date:[id number] () [address] [place] [id number]: 11/27/2017 Secondary NOT GIVENUNK [place] Insurance:SELF PAY [facility] Number: Effective Repository Date:2017-11-27 11/27/2017 Jey S Primary MICHAEL Gleasonoster [id number] Insurance:HUMANA MCCORMICKDOB: [place]icy [id number] Number: Repository [address]Klr: [id number] [phone] Date:6243-91-90FO [address] () [address] [place] [address]LX: 11/27/2017 Secondary NOT GIVENUNK Christopher Insurance:SELF PAY [facility] Number: Effective Repository Date:2017-11-27 11/27/2017 Jey S Primary MICHAEL Diehl [id number] Insurance:HUMANA MCCORMICKDOB: [place] MEDICARE PPOPolicy [id number] Number: Repository [address]Gfg: [id number] [phone] Date:8436-93-35EQ [address] () [address] [place] [address]BV: 11/27/2017 Secondary NOT GIVENUNK Christopher Insurance:SELF PAY [facility] Number: Effective Repository Date:2017-11-27 11/27/2017 Jey Walker Primary MICHAEL Robles [place] [id number] Insurance:HUMANA MCCORMICKDOB: [place] MED[place] PPOPolicy [id number] Number: Repository [address]Qde: [id number] [phone] Date:8337-44-55ZB [address] () [address] [place] [address]WC: 11/27/2017 Secondary NOT GIVENUNK [place] Insurance:SELF PAY [facility] Number: Effective Repository Date:2017-11-27 11/27/2017 Jey Walker Primary MICHAEL Robles [place] [id number] Insurance:HUMANA MCCORMICKDOB: [place] MED[place] PPOPolicy [id number] Number: Repository [address]Brf: [id number] [phone] Date:5588-71-48VP [address] () [address] [place] [address]79[address]NX: 11/27/2017 Secondary NOT GIVENUNK [place] Insurance:SELF PAY [facility] Number: Effective Repository Date:2017-11-27 11/27/2017 Jey Walker Primary MICHAEL Robles [place] [id number] Insurance:HUMANA MCCORMICKDOB: [place] MED[place] PPOPolicy [id number] Number: Repository [address]Rln: [id number] [phone] Date:3601-35-91CM [address] () [address] [place] [address]NV: 11/27/2017 Secondary NOT GIVENUNK [place] Insurance:SELF PAY [facility] Number: Effective Repository Date:2017-11-27 11/27/2017 Jey Walker Primary MICHAEL Robles [place] [id number] Insurance:HUMANA MCCORMICKDOB: [place] MED[place]ARE PPOPolicy [id number] Number: Repository [address]Bqr: [id number] [phone] Date:1351-49-34CH [address] () [address] [place] [address]PW: 11/27/2017 Secondary NOT GIVENUNK Christopher Insurance:SELF PAY [facility] Number: Effective Repository Date:2017-11-27 11/27/2017 Jey Walker Primary MICHAEL Diehl [id number] Insurance:HUMANA MCCORMICKDOB: [place] MEDICARE PPOPolicy [id number] Number: Repository [address]Eoj: [id number] [phone] Date:8650-51-71VR [address] () [address] [place] [id number]: 11/27/2017 Secondary NOT GIVENUNK Christopher Insurance:SELF PAY [facility] Number: Effective Repository Date:2017-11-27 11/27/2017 Jey S Primary MICHAEL Robles [place] [id number] Insurance:HUMANA MCCORMICKDOB: [place] MEDICARE PPOPolicy [id number] Number: Repository [address]Sds: [id number] [phone] Date:1890-31-47JU [address] () [address] [place] [address]LB: 11/27/2017 Secondary NOT GIVENUNK [place] Insurance:SELF PAY [facility] Number: Effective Repository Date:2017-11-27 11/27/2017 Jey Walker Primary MICHAEL Gleasonoster [id number] Insurance:HUMANA MCCORMICKDOB: [place] MEDICARE PPOPolicy [id number] Number: Repository [address]Uox: [id number] [phone] Date:5365-15-87HZ [address] () [address] [place] [address]SK: 11/27/2017 Secondary NOT GIVENUNK [place] Insurance:SELF PAY [facility] Number: Effective Repository Date:2017-11-27 11/27/2017 Jey S Primary MICHAEL Robles Christopher [id number] Insurance:HUMANA MCCORMICKDOB: [place] MEDICARE PPOPolicy [id number] Number: Repository [address]Bdf: [id number] [phone] Date:6312-16-33YO [address] (HP) [address] [place] [address]QW: 11/27/2017 Secondary NOT GIVENUNK [place] Insurance:SELF PAY [facility] Number: Effective Repository Date:2017-11-27 11/27/2017 Jey S Primary MICHAEL Robles [place] [id number] Insurance:HUMANA MCCORMICKDOB: [place] MEDICARE PPOPolicy [id number] Number: Repository [address]Gzd: [id number] [phone] Date:8396-91-95UG [address] (HP) [address] [place] [address]BT: 11/27/2017 Secondary NOT GIVENUNK [place] Insurance:SELF PAY [facility] Number: Effective Repository Date:2017-11-27 11/27/2017 Jey S Primary MICHAEL Robles [place] [id number] Insurance:HUMANA MCCORMICKDOB: [place] MEDICARE PPOPolicy [id number] Number: Repository [address]Lml: [id number] [phone] Date:5673-01-78ZJ [address] () [address] [place] [address]66[address]PR: 11/27/2017 Secondary NOT GIVENUNK [place] Insurance:SELF PAY [facility] Number: Effective Repository Date:2017-11-27 11/27/2017 Jey S Primary MICHAEL Robles Christopher [id number] Insurance:HUMANA MCCORMICKDOB: [place] MEDICARE PPOPolicy [id number] Number: Repository [address]Bcu: [id number] [phone] Date:0964-36-13LW [address] () [address] [place] [address]DU: 11/27/2017 Secondary NOT GIVENUNK Christopher Insurance:SELF PAY [facility] Effective Repository Date:2017-11-27 11/27/2017 Jey Walker Primary MICHAEL Robles Christopher [id number] Insurance:HUMANA MCCORMICKDOB: [place] MEDICARE PPOPolicy [id number] Number: Repository [address]Xpm: [id number] [phone] Date:1350-68-71RA [address] () [address] [place] [address]LB: 11/27/2017 Secondary NOT GIVENUNK [place] Insurance:SELF PAY [facility] Number: Effective Repository Date:2017-11-27 11/27/2017 Jey Walker Primary MICHAEL Robles Christopher [id number] Insurance:HUMANA MCCORMICKDOB: [place] MEDICARE PPOPolicy [id number] Number: Repository [address]Ear: [id number] [phone] Date:5881-49-59CB [address] () [address] [place] [address]66[address]XV: 11/27/2017 Secondary NOT GIVENUNK Christopher Insurance:SELF PAY [facility] Number: Effective Repository Date:2017-11-27 11/27/2017 Jey Walker Primary MICHAEL Robles [place] [id number] Insurance:HUMANA MCCORMICKDOB: [place] MEDICARE PPOPoly [id number], [place] Number: Repository [address]Zfh: [id number] [phone] Date:2660-76-19VE [address] () [address] [place] [id number]: 11/27/2017 Secondary NOT GIVENUNK Christopher Insurance:SELF PAY [facility] Number: Effective Repository Date:2017-11-27 11/27/2017 Jey Walker Primary MICHAEL Robles Christopher [id number] Insurance:HUMANA MCCORMICKDOB: [place] MEDICARE PPOPolicy [id number] Number: Repository [address]Zvk: [id number] [phone] Date:6963-81-28KT [address] () [address] [place] [address]GO: 11/27/2017 Secondary NOT GIVENUNK Christopher Insurance:SELF PAY [facility] Number: Effective Repository Date:2017-11-27 11/27/2017 Jey S Primary MICHAEL Robles Christopher [id number] Insurance:HUMANA MCCORMICKDOB: [facility] OPolicy [id number] Number: Repository [address]Aft: [id number] [phone] Date:7987-60-69GG [address] () [address] [place] [address]VL: 11/27/2017 Secondary NOT GIVENUNK [place] Insurance:SELF PAY [facility] Number: Effective Repository Date:2017-11-27 11/27/2017 Jey S Primary MICHAEL Robles [place] [id number] Insurance:HUMANA MCCORMICKDOB: [place] MEDICARE PPOPolicy [id number] Number: Repository [address]Uso: [id number] [phone] Date:3974-73-06SJ [address] () [address] [place] [id number]: 11/27/2017 Secondary NOT GIVENUNK [place] Insurance:SELF PAY [facility] Number: Effective Repository Date:2017-11-27 11/27/2017 Jey S Primary MICHAEL Robles Christopher [id number] Insurance:HUMANA MCCORMICKDOB: [place] MEDICARE PPOPolicy [id number], [place] Number: Repository [address]Jay: [id number] [phone] Date:8717-83-75UP [address] () [address] [place] [id number]: 11/27/2017 Secondary NOT GIVENUNK Christopher [facility] Number: Effective Repository Date:2017-11-27 11/27/2017 Jey Walker Primary MICHAEL Diehl [id number] Insurance:HUMANA MCCORMICKDOB: [facility] OPolicy [id number] Number: Repository [address]Qvg: [id number] [phone] Date:6756-25-38NI [address] () [address] [place] [address]KX: 11/27/2017 Secondary NOT GIVENUNK Christopher Insurance:SELF PAY [facility] Number: Effective Repository Date:2017-11-27 11/27/2017 Jey Walker Primary MICHAEL Robles Christopher [id number] Insurance:HUMANA MCCORMICKDOB: [place] MEDICARE PPOPolicy [id number] Number: Repository [address]Gqx: [id number] [phone] Date:5260-89-46VO [address] () [address] [place] [address]SO: 11/27/2017 Secondary NOT GIVENUNK [place] Insurance:SELF PAY [facility] Number: Effective Repository Date:2017-11-27 11/27/2017 Jey Walker Primary MICHAEL Diehl [id number] Insurance:HUMANA MCCORMICKDOB: [place] MEDICARE PPOPolicy [id number], [place] Number: Repository [address]Hxv: [id number] [phone] Date:0590-63-01AI [address] () [address] [place] [address]MV: 11/27/2017 Secondary NOT GIVENUNK [place] Insurance:SELF PAY [facility] Number: Effective Repository Date:2017-11-27 11/27/2017 Jey Walker Primary MICHAEL Diehl [id number] Insurance:HUMANA MCCORMICKDOB: [place] MEDICARE PPOPolicy [id number], [place] Number: Repository [address]Bzy: [id number] [phone] Date:0940-38-94RV [address] () [address] [place] [address]TN: 11/27/2017 Secondary NOT GIVENUNK [place] Insurance:SELF PAY [facility] Number: Effective Repository Date:2017-11-27 11/27/2017 Jey Walker Primary MICHAEL Diehl [id number] Insurance:HUMANA MCCORMICKDOB: [place] MEDICARE PPOPolicy [id number] Number: Repository [address]Vjw: [id number] [phone] Date:5213-92-95XQ [address] () [address] [place] [address]ST: 11/27/2017 Secondary NOT GIVENUNK [place] Insurance:SELF PAY [facility] Number: Effective Repository Date:2017-11-27 11/27/2017 Jey S Primary MICHAEL Gleasonoster [id number] Insurance:HUMANA MCCORMICKDOB: [place] MEDICARE PPOPolicy [id number] Number: Repository [address]Mdn: [id number] [phone] Date:7708-93-96UU [address] () [address] [place] [address]TN: 11/27/2017 Secondary NOT GIVENUNK Christopher Insurance:SELF PAY [facility] Number: Effective Repository Date:2017-11-27 11/27/2017 Jey S Primary MICHAEL Diehl [id number] Insurance:HUMANA MCCORMICKDOB: [place] MEDICARE PPOPolicy [id number] Number: Repository [address]Mip: [id number] [phone] Date:7341-54-80QY [address] () [address] [place] [address]VT: 11/27/2017 Secondary NOT GIVENUNK Christopher Insurance:SELF PAY [facility] Number: Effective Repository Date:2017-11-27 11/27/2017 Jey S Primary MICHAEL Diehl [id number] Insurance:HUMANA MCCORMICKDOB: [place] MEDICARE PPOPolicy [id number] Number: Repository [address]Tui: [id number] [phone] Date:4369-77-07BL [address] () [address] [place] [address]OU: 11/27/2017 Secondary NOT GIVENUNK Christopher Insurance:SELF PAY [facility] Number: Effective Repository Date:2017-11-27 11/27/2017 Jey S Primary MICHAEL Diehl [id number] Insurance:HUMANA MCCORMICKDOB: [place] MEDICARE PPOPolicy [id number] Number: Repository [address]Ltk: [id number] [phone] Date:6162-41-24HH [address] () [address] [place] [address]JZ: 11/27/2017 Secondary NOT GIVENUNK [place] Insurance:SELF PAY [facility] Number: Effective Repository Date:2017-11-27 11/26/2017 Jey S Primary MICHAEL Diehl [id number] Insurance:HUMANA MCCORMICKDOB: [place] MEDICARE PPOPolicy [id number] Number: Repository [address]Axe: [id number] [phone] Date:1085-46-04FQ [address] () [address] [place] [address]GY: 11/26/2017 Secondary NOT GIVENUNK Christopher Insurance:SELF PAY [facility] Number: Effective Repository Date:2017-10-23
== END ==
PROVIDERS: Physician Assistant Medical; Family Provider Family Medicine; PCP Family Medicine; Referring Provider Internal Medicine Nephrology; Visit Provider Internal Medicine Nephrology
DX: N18.3 Chronic kidney disease, stage 3 (moderate) (principal)
CPT/HCPCS: 36415; 80048; 82040; 82306; 82570; 83970; 84156; 85027

== ENCOUNTER → 2018-10-01 12:02 | Outpatient (CLI) | payer MEDICARE, SELFPAY ==
[2018-09-09 14:39] VITALS: BMI 36.6
--- NOTE | 2018-10-01 12:06 | US_ITS ---
STUDY: RENAL ULTRASOUND - COMPLETE REASON FOR EXAM: Female, 72 years old. TECHNIQUE: Ultrasound evaluation of the kidneys was performed with real-time and static gaspar-scale imaging. COMPARISON: None. FINDINGS: RIGHT KIDNEY: Normal location of the right kidney, which is normal in size. The right kidney measures 1.6 x 3.2 x 4 cm. There is a normal cortex of the right kidney. The renal cortex measures 1.2 cm. There is no right renal mass or cyst. There are no right renal calculi. There is no right hydronephrosis. DISTAL RIGHT URETER: There is non-visualization of the distal right ureter. There is no demonstrated right ureterovesical junction calculus. There is a visualized right ureteral jet. LEFT KIDNEY: Normal location of the left kidney, which is normal in size. The left kidney measures 10.8 x 3.1 x 3.7 cm. There is a normal cortex of the left kidney. The renal cortex measures 0.9 cm. There is no left renal mass or cyst. There are no left renal calculi. There is no left hydronephrosis. DISTAL LEFT URETER: There is non-visualization of the distal left ureter. There is no demonstrated left ureterovesical junction calculus. There is a visualized left ureteral jet. AORTA: There is no elongation or tortuosity of the abdominal aorta. Aorta measures: Proximal cm. Middle cm. Distal cm. Aorta measure transversely: Proximal cm. Middle cm. Distal cm. There is no demonstrated aneurysm.. I.V.C.: The IVC is patent. BLADDER: Normal distended bladder with volume of urine is 6.7 no thickening of the wall seen no evidence of the biliary, masses or stone. US/Kidney and Bladder IMPRESSION: Normal ultrasound of the kidneys and urinary bladder. Electronically Signed: Luisa Mcnulty, at 12:26 EST Tel , Service support ,
== END ==
PROVIDERS: Family Provider Family Medicine; PCP Family Medicine; Referring Provider Internal Medicine Nephrology; Visit Provider Internal Medicine Nephrology
DX: R35.0 Frequency of micturition (principal); R39.15 Urgency of urination
CPT/HCPCS: 76770

== ENCOUNTER → 2018-10-21 15:45 | Outpatient (CLI) | payer MEDICARE, SELFPAY ==
[2018-10-21 14:30] VITALS: BMI 40.4
[2018-10-21 15:56] VITALS: BP 152/77; PULSE 56; RESP 16; TEMP 36.3; O2SAT 98; BMI 39.6
[2018-10-21] MEDS: Furosemide 40 MG/4 ML Vial 80 MG IV (16:07)
--- OUTSIDE RECORDS SUMMARY | 2018-12-26 15:25 | XMS RPT_ITS ---
:1945 Author Organization OHIP Support Name Relationship Address Phone JOSE JEY Unavailable [address] [phone] [place] [address] NORBERT GARCIA Unavailable [address] + [place] [address] R Unavailable Unavailable Unavailable JEY GARCIA Unavailable [address] [phone] [place] [address] NORBERT GARCIA Unavailable [address] + [place] [address] R Unavailable Unavailable Unavailable JEY GARCIA Unavailable [address] [phone] [place] [address] NORBERT GARCIA Unavailable [address] + [place] [address] R Unavailable Unavailable Unavailable JEY GARCIA Unavailable [address] [phone] [place] [address] NORBERT GARCIA Unavailable [address] + [place] [address] R Unavailable Unavailable Unavailable JEY GARCIA Unavailable [address] [phone] [place] [address] NORBERT GARCIA Unavailable [address] + [place] [address] R Unavailable Unavailable Unavailable JEY GARCIA Unavailable [address] [phone] [place] [address] NORBERT GARCIA Unavailable [address] + [place] [address] R Unavailable Unavailable Unavailable JEY GARCIA Unavailable [address] [phone] [place] [address] NORBERT GARCIA Unavailable [address] + [place] [address] R Unavailable Unavailable Unavailable JEY GARCIA Unavailable [address] [phone] [place] [address] NORBERT GARCIA Unavailable [address] + [place] [address] R Unavailable Unavailable Unavailable JEY GARCIA Unavailable [address] [phone] [place] [address] NORBERT GARICA Unavailable [address] + [place] [address] R Unavailable Unavailable Unavailable JEY GARCIA Unavailable [address] [phone] [place] [address] NORBERT GARCIA Unavailable [address] + [place] [address] R Unavailable Unavailable Unavailable JEY GARCIA Unavailable [address] [place] [address] [place] [address] NORBERT GARCIA Unavailable [address] + [place] [address] R Unavailable Unavailable Unavailable JEY GARCIA Unavailable [address] [phone] [place] [address] NORBERT GARCIA Unavailable [address] + [place] [address] R Unavailable Unavailable Unavailable JEY GARCIA Unavailable [address] [phone] [place] [address] NORBERT GARCIA Unavailable [address] + [place] [address] R Unavailable Unavailable Unavailable JEY GARCIA Unavailable [address] [phone] [place] [address] NORBERT GARCIA Unavailable [address] + [place] [address] R Unavailable Unavailable Unavailable JEY GARCIA Unavailable [address] [phone] [place] [address] NORBERT GARCIA Unavailable [address] + [place] [address] R Unavailable Unavailable Unavailable JEY GARCIA Unavailable [address] [phone] [place] [address] NORBERT GARCIA Unavailable [address] + [place] [address] R Unavailable Unavailable Unavailable JEY GARCIA Unavailable [address] [phone] [place] [address] NORBERT GARCIA Unavailable [address] [phone] [place] [address] R Unavailable Unavailable Unavailable JEY GARCIA Unavailable [address] [phone] [place] [address] NORBERT GARCIA Unavailable [address] [facility]([phone] [place] [address] R Unavailable Unavailable Unavailable JOSE JEY Unavailable [address] [phone] [place] [address] NORBERT GARCIA Unavailable [address] [facility]([phone] [place] [address] R Unavailable Unavailable Unavailable JOSE JEY Unavailable [address] [phone] [place] [address] JOSE GARCIAELLE Unavailable [address] [facility]([phone] [place] [address] R Unavailable Unavailable Unavailable JEY GARCIA Unavailable [address] [phone] [place] [address] NORBERT GARCIA Unavailable [address] [facility]([phone] [place] [address] R Unavailable Unavailable Unavailable JEY GARCIA Unavailable [address] [phone] [place] [address] NORBERT GARCIA Unavailable [address] [phone] [place] [address] R Unavailable Unavailable Unavailable JEY GACRIA Unavailable [address] [facility]([phone] [place] [address] JOSE GARCIAELLE Unavailable [address] [phone] [place] [address] R Unavailable Unavailable Unavailable JEY GARCIA Unavailable [address] [phone] [place] [address] NORBERT GARCIA Unavailable [address] [phone] [place] [address] R Unavailable Unavailable Unavailable JEY GARCIA Unavailable [address] [facility]([phone] [place] [address] JOSE GARCIAELLE Unavailable [address] [phone] [place] [address] R Unavailable Unavailable Unavailable GARCIA, JEY Unavailable [address] [phone] [place] [address] NORBERT GARCIA Unavailable [address] [facility]([phone] [place] [address] R Unavailable Unavailable Unavailable GARCIA, JEY Unavailable [address] [facility]([phone] [place] [address] NORBERT GARCIA Unavailable [address] [facility]([phone] [place] [address] R Unavailable Unavailable Unavailable GARCIA, EJY Unavailable [address] [phone] [place] [address] JOSE GARCIAELLE Unavailable [address] [facility]([phone] [place] [address] R Unavailable Unavailable Unavailable GARCIA, JEY Unavailable [address] [phone] [place] [address] JOSE GARCIAELLE Unavailable [address] [phone] [place] [address] R Unavailable Unavailable Unavailable GARCIA JEY Unavailable [address] [facility]([phone] [place] [address] NORBERT GARCIA Unavailable [address] [facility]([phone] [place] [address] R Unavailable Unavailable Unavailable GARCIA JEY Unavailable [address] [phone] [place] [address] NORBERT GARCIA Unavailable [address] [phone] [place] [address] R Unavailable Unavailable Unavailable JEY GARCIA Unavailable [address] [phone] [place] [address] NORBERT GARCIA Unavailable [address] [phone] [place] [address] R Unavailable Unavailable Unavailable JOSE JEY Unavailable [address] [phone] [place] [address] NORBERT GARCIA Unavailable [address] [phone] [place] [address] R Unavailable Unavailable Unavailable JEY GARCIA Unavailable [address] [phone] [place] [address] NORBERT GARCIA Unavailable Unavailable + [place] [address] R Unavailable Unavailable Unavailable GARCIA, JEY Unavailable [address] [facility]([phone] [place] [address] NORBERT GARCIA Unavailable Unavailable + [place] [address] R Unavailable Unavailable Unavailable JEY GARCIA Unavailable [address] [phone] [place] [address] JOSE GARCIAELLE Unavailable [address] [facility]([phone] [place] [address] R Unavailable Unavailable Unavailable GARCIAJEY Unavailable [address] [phone] [place] [address] NORBERT GARCIA Unavailable Unavailable + [place] [address] R Unavailable Unavailable Unavailable JEY GARCIA Unavailable [address] [phone] [place] [address] NORBERT GARCIA Unavailable . + [place] [address] R Unavailable Unavailable Unavailable JEY GARCIA Unavailable [address] [phone] [place] [address] NORBERT GARCIA Unavailable Unavailable + [place] [address] R Unavailable Unavailable Unavailable JEY GARCIA Unavailable [address] [facility]([phone] [place] [address] NORBERT GARCIA Unavailable Unavailable + [place] [address] R Unavailable Unavailable Unavailable JEY GARCIA Unavailable [address] [phone] [place] [address] NORBERT GARCIA Unavailable Unavailable + [place] [address] R Unavailable Unavailable Unavailable GARCIAJEY LEE Unavailable [address] [phone] [place] [address] NORBERT GARCIA Unavailable . + [place] [address] R Unavailable Unavailable Unavailable GARCIA, JEY Unavailable [address] [phone] [place] [address] NORBERT GARCIA Unavailable Unavailable + [place] [address] R Unavailable Unavailable Unavailable GARCIAJEY LEE Unavailable [address] [phone] [place] [address] NORBERT GARCIA Unavailable [address] [phone] [place] [address] R Unavailable Unavailable Unavailable GARCIA, JOHN Unavailable [address] [phone] [place] [address] NORBERT GARCIA Unavailable Unavailable + [place] [address] R Unavailable Unavailable Unavailable GARCIAJEY LEE Unavailable [address] [phone] [place] [address] NORBERT GARCIA Unavailable . + [place] [address] R Unavailable Unavailable Unavailable GARCIAJEY ELE Unavailable [address] [phone] [place] [address] NORBERT GARCIA Unavailable Unavailable + [place] [address] R Unavailable Unavailable Unavailable GARCIAJEY LEE Unavailable [address] [phone] [place] [address] NORBERT GARCIA Unavailable Unavailable + [place] [address] R Unavailable Unavailable Unavailable GARCIAJEY LEE Unavailable [address] [phone] [place] [address] NORBERT GARCIA Unavailable Unavailable + [place] [address] R Unavailable Unavailable Unavailable GARCIA, JOHN Unavailable [address] [phone] [place] [address] NORBERT GARCIA Unavailable [address] [phone] [place] [address] R Unavailable Unavailable Unavailable GARCIAJEY Unavailable [address] [phone] [place] [address] NORBERT GARCIA Unavailable Unavailable + [place] [address] R Unavailable Unavailable Unavailable GARCIAJEY LEE Unavailable [address] [facility]([phone] [place] [address] NORBERT GARCIA Unavailable Unavailable + [place] [address] R Unavailable Unavailable Unavailable GARCIAJEY Unavailable [address] [phone] [place] [address] NORBERT GARCIA Unavailable Unavailable + [place] [address] R Unavailable Unavailable Unavailable GARCIA, JEY Unavailable [address] [phone] [place] [address] NORBERT GARCIA Unavailable Unavailable + [place] [address] R Unavailable Unavailable Unavailable JEY GARCIA Unavailable [address] [phone] [place] [address] JOSE NORBERT Unavailable Unavailable + [place] [address] R Unavailable Unavailable Unavailable GARCIAJEY LEE Unavailable [address] [phone] [place] [address] JOSE NORBERT Unavailable Unavailable + [place] [address] R Unavailable Unavailable Unavailable JEY GARCIA Unavailable [address] [phone] [place] [address] JOSE GARCIAELLE Unavailable Unavailable + [place] [address] R Unavailable Unavailable Unavailable JEY GARCIA Unavailable [address] [phone] [place] [address] NORBERT GARCIA Unavailable Unavailable + [place] [address] R Unavailable Unavailable Unavailable JEY GARCIA Unavailable [address] [phone] [place] [address] NORBERT GARCIA Unavailable Unavailable + [place] [address] R Unavailable Unavailable Unavailable JEY GARCIA Unavailable [address] [phone] [place] [address] NORBERT GARCIA Unavailable Unavailable + [place] [address] R Unavailable Unavailable Unavailable GARCIAJEY LEE Unavailable [address] [phone] [place] [address] NORBERT GARCIA Unavailable . + [place] [address] R Unavailable Unavailable Unavailable GARCIAJEY LEE Unavailable [address] [phone] [place] [address] NORBERT GARCIA Unavailable Unavailable + [place] [address] R Unavailable Unavailable Unavailable Norbert Garcia Unavailable . + [place] [address] GARCIA JEY Unavailable [address] + [place] [address] R Unavailable Unavailable Unavailable JOSE JEY Unavailable [address] [phone] [place] [address] JOSE NORBERT Unavailable Unavailable + [place] [address] R Unavailable Unavailable Unavailable Garcia, Norbert Unavailable . + [place] [address] JOSE JEY Unavailable [address] [facility] + [place] [address] R Unavailable Unavailable Unavailable Garcia, Norbert Unavailable . + [place] [address] JOSE, JEY Unavailable [address] [phone] [place] [address] R Unavailable Unavailable Unavailable Garcia, Norbert Unavailable . + [place] [address] JOSE JEY Unavailable [address] [facility]([phone] [place] [address] R Unavailable Unavailable Unavailable Garcia, Norbert Unavailable . + [place] [address] JOSE JEY Unavailable [address] [facility] + [place] [address] R Unavailable Unavailable Unavailable Jose Norbert Unavailable . + [place] [address] JOSE JEY Unavailable [address] [phone] [place] [address] R Unavailable Unavailable Unavailable Jose Norbert Unavailable . + [place] [address] JOSE JEY Unavailable [address] [facility]([phone] [place] [address] R Unavailable Unavailable Unavailable Jose Norbert Unavailable . + [place] [address] JOSE, JEY Unavailable [address] [phone] [place] [address] R Unavailable Unavailable Unavailable Jose Norbert Unavailable . + [place] [address] JOSE JEY Unavailable [address] [facility]([phone] [place] [address] R Unavailable Unavailable Unavailable Garcia Norbert Unavailable . + [place] [address] JOSE JEY Unavailable [address] [facility] + [place] [address] R Unavailable Unavailable Unavailable Garcia, Norbert Unavailable . + [place] [address] JOSE JEY Unavailable [address] [place] [address] + [place] [address] R Unavailable Unavailable Unavailable Garcia, Norbert Unavailable . + [place] [address] JOSE, JEY Unavailable [address] [place] [address] + [place] [address] R Unavailable Unavailable Unavailable Garcia, Norbert Unavailable . + [place] [address] JOSE, JEY Unavailable [address] [place] [address] + [place] [address] R Unavailable Unavailable Unavailable Garcia, Norbert Unavailable . + [place] [address] JOSE JEY Unavailable [address] [place] [address] [place] [address] R Unavailable Unavailable Unavailable Garcia, Norbert Unavailable . + [place] [address] JOSE JEY Unavailable [address] [place] [address] [place] [address] R Unavailable Unavailable Unavailable Garcia, Norbert Unavailable . + [place] [address] JEY GARCIA Unavailable [address] [place] [address] [place] [address] R Unavailable Unavailable Unavailable Garcia, Norbert Unavailable . + [place] [address] JOSE JEY Unavailable [address] [place] [address] + [place] [address] R Unavailable Unavailable Unavailable Garcia, Norbert Unavailable . + [place] [address] JOSE, JEY Unavailable [address] [place] [address] + [place] [address] R Unavailable Unavailable Unavailable Garcia, Norbert Unavailable . + [place] [address] JOSE, JEY Unavailable [address] [place] [address] + [place] [address] R Unavailable Unavailable Unavailable Garcia, Norbert Unavailable . + [place] [address] JOSE JEY Unavailable [address] [facility] + [place] [address] R Unavailable Unavailable Unavailable Garcia, Norbert Unavailable . + [place] [address] GARCIA, JEY Unavailable [address] [phone] [place] [address] R Unavailable Unavailable Unavailable Garcia, Norbert Unavailable . + [place] [address] GARCIA, JEY Unavailable [address] [facility] + [place] [address] R Unavailable Unavailable Unavailable GARCIA, JEY Unavailable [address] [phone] [place] [address] GARCIA, NORBERT Unavailable Unavailable + [place] [address] R Unavailable Unavailable Unavailable Garcia, Norbert Unavailable . + [place] [address] GARCIA, JEY Unavailable [address] [facility] + [place] [address] R Unavailable Unavailable Unavailable GARCIA, JEY Unavailable [address] [facility]([phone] [place] [address] GARCIA, NORBERT Unavailable Unavailable + [place] [address] R Unavailable Unavailable Unavailable Garcia, Norbert Unavailable . + [place] [address] GARCIA, JEY Unavailable [address] [phone] [place] [address] R Unavailable Unavailable Unavailable Garcia, Norbert Unavailable . + [place] [address] GARCIA, JEY Unavailable [address] [phone] [place] [address] R Unavailable Unavailable Unavailable Garcia, Norbert Unavailable . + [place] [address] GARCIA, JEY Unavailable [address] [phone] [place] [address] R Unavailable Unavailable Unavailable Garcia, Norbert Unavailable . + [place] [address] GARCIA, JYE Unavailable [address] [phone] [place] [address] R Unavailable Unavailable Unavailable Garcia, Norbert Unavailable . + [place] [address] JOSE JEY Unavailable [address] [phone] [place] [address] R Unavailable Unavailable Unavailable Garcia, Norbert Unavailable . + [place] [address] JOSE JEY Unavailable [address] [phone] [place] [address] R Unavailable Unavailable Unavailable Garcia, Norbert Unavailable . + [place] [address] JOSE JEY Unavailable [address] [phone] [place] [address] R Unavailable Unavailable Unavailable Garcia, Norbert Unavailable . + [place] [address] JOSE JEY Unavailable [address] [phone] [place] [address] R Unavailable Unavailable Unavailable Garcia, Norbert Unavailable . + [place] [address] JOSE JEY Unavailable [address] [phone] [place] [address] R Unavailable Unavailable Unavailable GARCIA, JEY Unavailable [address] [phone] [place] [address] GARCIA NORBERT Unavailable Unavailable + [place] [address] R Unavailable Unavailable Unavailable GARCIA, JEY Unavailable [address] [phone] [place] [address] GARCIA, NORBERT Unavailable Unavailable + [place] [address] R Unavailable Unavailable Unavailable Garcia, Norbert Unavailable . + [place] [address] GARCIA, JEY Unavailable [address] [phone] [place] [address] R Unavailable Unavailable Unavailable GARCIA, JEY Unavailable [address] [phone] [place] [address] GARCIA, NORBERT Unavailable Unavailable + [place] [address] R Unavailable Unavailable Unavailable GARCIA, EJY Unavailable [address] [place] [address] [place] [address] NORBERT GARCIA Unavailable Unavailable + [place] [address] R Unavailable Unavailable Unavailable Norbert Garcia Unavailable . + [place] [address] JEY GARCIA Unavailable [address] [phone] [place] [address] R Unavailable Unavailable Unavailable Care Team Providers Name Role Phone Domingo Jenkins Attending Unavailable Alice, Jayaprakash Referring Unavailable Jolliff, Zeenat Primary Care Unavailable Norbert Bond Consulting Unavailable Alice, Jayaprakash Attending Unavailable Alice, Jayaprakash Referring Unavailable Jolliff, Zeenat Primary Care Unavailable Norbert Bond Attending Unavailable Clive, Mat Referring Unavailable Norbert Bond Attending Unavailable Judylliff, Zeenat Primary Care Unavailable Norbert Bond Attending Unavailable Norbert Bond Referring Unavailable Jolliff, Zeenat Primary Care Unavailable Norbert Bond Attending Unavailable Norbert Bond Referring Unavailable Jolliff, Zeenat Primary Care Unavailable Norbert Bond Attending Unavailable Clive, Mat Referring Unavailable Severiano Kumar Attending Unavailable Severiano Kumar Referring Unavailable Duffy, Mat Primary Care Unavailable Duffy, Mat Primary Care Unavailable Ashelfah, Ghasem Admitting Unavailable Rocael Valencia Consulting Unavailable Irene Wilson Attending Unavailable Ortiz Markham Consulting Unavailable Nidia Jones Consulting Unavailable Tanphaichitr, Natthavat Consulting Unavailable Anoop Angeles Consulting Unavailable Ashelfah, Ghasem Admitting Unavailable Ashelfah, Ghasem Attending Unavailable Duffy, Mat Primary Care Unavailable Ashelfah, Ghasem Consulting Unavailable Ashelfah, Ghasem Admitting Unavailable Viviana Childers [employer]ODUCTION SUPERVISOR-C Attending Unavailable Duffy, Mat Primary Care Unavailable Rocael Valencia Consulting Unavailable Ortiz Markham Consulting Unavailable Ashelfah, Ghasem Consulting Unavailable Ashelfah, Ghasem Admitting Unavailable Rocael Valencia Attending Unavailable Duffy, Mat Primary Care Unavailable Rocael Valencia Consulting Unavailable Ortiz Markham Consulting Unavailable Ashelfah, Ghasem Consulting Unavailable Ashelfah, Ghasem Admitting Unavailable Moodispaw, Reinier Attending Unavailable [facility] Unavailable ErikRocael helton Consulting Unavailable Ortiz Markham Consulting Unavailable Ashelfah, Ghasem Consulting Unavailable Ashelfah, Ghasem Admitting Unavailable Ashelfah, Ghasem Attending Unavailable [facility] Unavailable ErikRocael helton Consulting Unavailable Ortiz Markham Consulting Unavailable Ashelfah, Ghasem Consulting Unavailable Ashelfah, Ghasem Admitting Unavailable Viviana Childers BUTTER PRODUCTION SUPERVISOR-C Attending Unavailable [facility] Unavailable ErikRocael helton Consulting Unavailable Ortiz Markham Consulting Unavailable Ashelfah, Ghasem Consulting Unavailable Ashelfah, Ghasem Admitting Unavailable Rocael Valencia Attending Unavailable [facility] Unavailable ErikRocael helton Consulting Unavailable Ortiz Markham Consulting Unavailable Ashelfah, Ghasem Consulting Unavailable Ashelfah, Ghasem Admitting [facility] Unavailable [facility] Unavailable Rocael Valencia Consulting Unavailable Ortiz Markham Consulting Unavailable Ashelfah, Ghasem Consulting Unavailable Ashelfah, Ghasem Admitting Unavailable Ashelfah, Ghasem Attending Unavailable [facility] Unavailable ErikRocael helton Consulting Unavailable Ortiz Markham Consulting Unavailable Ashelfah, Ghasem Consulting Unavailable Ashelfah, Ghasem Admitting Unavailable Ortiz Markham Attending Unavailable [facility] Unavailable ErikRocael helton Consulting Unavailable Ortiz Markham Consulting Unavailable Ashelfah, Ghasem Consulting Unavailable Ashelfah, Ghasem Admitting Unavailable Ashelfah, Ghasem Attending Unavailable [facility] Unavailable ErikRocael helton Consulting Unavailable Ortiz Markham Consulting Unavailable Ashelfah, Ghasem Consulting Unavailable Ashelfah, Ghasem Admitting Unavailable Ortiz Markham Attending Unavailable [facility] Unavailable ErikRocael helton Consulting Unavailable Ortiz Markham Consulting Unavailable Robert, Nidia Consulting Unavailable Ashelfah, Ghasem Consulting Unavailable Ashelfah, Ghasem Admitting Unavailable Viviana Childers BUTTER PRODUCTION SUPERVISOR-C Attending Unavailable [facility] Unavailable Rocael Valencia Consulting Unavailable Ortiz Markham Consulting Unavailable Robert, Nidia Consulting Unavailable Jeevan Machado Consulting Unavailable Ashelfah, Ghasem Admitting Unavailable Jeevan Machado Attending Unavailable [facility] Unavailable Rocael Valencia Consulting Unavailable Ortiz Markham Consulting Unavailable Bakhous, Aziz Consulting Unavailable Tanphaichitr, Natthavat Consulting Unavailable Jeevan Machado Consulting Unavailable Ashelfah, Ghasem Admitting Unavailable Aydin Carroll D.O. Attending Unavailable [facility] Unavailable Rocael Valencia Consulting Unavailable Ortiz Markham Consulting Unavailable Bakhous, Aziz Consulting Unavailable Tanphaichitr, Natthavat Consulting Unavailable Jeevan Machado Consulting Unavailable Ashelfah, Ghasem Admitting Unavailable Viviana Childers BUTTER PRODUCTION SUPERVISOR-C Attending Unavailable [facility] Unavailable Rocael Valencia Consulting Unavailable Ortiz Markham Consulting Unavailable Bakhous, Aziz Consulting Unavailable Tanphaichitr, Natthavat Consulting Unavailable Jeevan Machado Consulting Unavailable Ashelfah, Ghasem Admitting Unavailable Jeevan Machado Attending Unavailable [facility] Unavailable Rocael Valencia Consulting Unavailable Ortiz Markham Consulting Unavailable Bakhous, Aziz Consulting Unavailable Tanphaichitr, Natthavat Consulting Unavailable Jeevan Machado Consulting Unavailable Ashelfah, Ghasem Admitting Unavailable Aydin Carroll D.O. Attending Unavailable [facility] Unavailable Rocael Valencia Consulting Unavailable Ortiz Markham Consulting Unavailable Bakhous, Aziz Consulting Unavailable Tanphaichitr, Natthavat Consulting Unavailable Jeevan Machado Consulting Unavailable Ashelfah, Ghasem Admitting Unavailable Viviana Childers BUTTER PRODUCTION SUPERVISOR-C Attending Unavailable [facility] Unavailable Rocael Valencia Consulting Unavailable Ortiz Markham Consulting Unavailable Bakhous, Aziz Consulting Unavailable Tanphaichitr, Natthavat Consulting Unavailable Jeevan Machado Consulting Unavailable Ashelfah, Ghasem Admitting Unavailable Jeevan Machado Attending Unavailable [facility] Care Unavailable Rocael Valencia Consulting Unavailable Ortiz Markham Consulting Unavailable Bakhous, Aziz Consulting Unavailable Tanphaichitr, Natthavat Consulting Unavailable Jeevan Machado Consulting Unavailable Ashelfah, Ghasem Admitting Unavailable [facility] Care Unavailable Rocael Valencia Consulting Unavailable Aydin Carroll D.O. Attending Unavailable Ortiz Markham Consulting Unavailable Bakhous, Aziz Consulting Unavailable Tanphaichitr, Natthavat Consulting Unavailable Jeevan Machado Consulting Unavailable Ashelfah, Ghasem Admitting Unavailable Viviana Childers BUTTER PRODUCTION SUPERVISOR-C Attending Unavailable [facility] Unavailable Erik, Rocael Consulting Unavailable Ortiz Markham Consulting Unavailable Bakhous, Aziz Consulting Unavailable Tanphaichitr, Natthavat Consulting Unavailable Jeevan Machado Consulting Unavailable Ashelfah, Ghasem Admitting Unavailable Aydin Carroll D.O. Attending Unavailable [facility] Unavailable ErikRocael helton Consulting Unavailable Ortiz Markham Consulting Unavailable Bakhous, Aziz Consulting Unavailable Tanphaichitr, Natthavat Consulting Unavailable Jeevan Machado Consulting Unavailable Ashelfah, Ghasem Admitting Unavailable Jeevan Machado Attending Unavailable [facility] Unavailable ErikRocael helton Consulting Unavailable Ortiz Markham Consulting Unavailable Bakhous, Aziz Consulting Unavailable Tanphaichitr, Natthavat Consulting Unavailable Jeevan Machado Consulting Unavailable Ashelfah, Ghasem Admitting Unavailable Viviana Childers BUTTER PRODUCTION SUPERVISOR-C Attending Unavailable [facility] Unavailable ErikRocael helton Consulting Unavailable Ortiz Markham Consulting Unavailable Bakhous, Aziz Consulting Unavailable Tanphaichitr, Natthavat Consulting Unavailable Jeevan Machado Consulting Unavailable Ashelfah, Ghasem Admitting Unavailable Aydin Carroll D.O. Attending Unavailable [facility] Unavailable ErikRocael helton Consulting Unavailable Ortiz Markham Consulting Unavailable Bakhous, Aziz Consulting Unavailable Tanphaichitr, Natthavat Consulting Unavailable Jeevan Machado Consulting Unavailable Ashelfah, Ghasem Admitting Unavailable Aydin Carroll D.O. Attending Unavailable [facility] Unavailable ErikRocael helton Consulting Unavailable Ortiz Markham Consulting Unavailable Bakhous, Aziz Consulting Unavailable Tanphaichitr, Natthavat Consulting Unavailable Jeevan Machado Consulting Unavailable Ashelfah, Ghasem Admitting Unavailable Jeevan Machado Attending Unavailable [facility] Unavailable ErikRocael helton Consulting Unavailable Ortiz Markham Consulting Unavailable Bakhous, Aziz Consulting Unavailable Tanphaichitr, Natthavat Consulting Unavailable Jeevan Machado Consulting Unavailable Ashelfah, Ghasem Admitting Unavailable Aydin Carroll D.O. Attending Unavailable [facility] Unavailable Rocael Valencia Consulting Unavailable Ortiz Markham Consulting Unavailable Bakhous, Aziz Consulting Unavailable Tanphaichitr, Natthavat Consulting Unavailable Jeevan Machado Consulting Unavailable Ashelfah, Ghasem Admitting Unavailable Jeevan Machado Attending Unavailable [facility] Unavailable Rocael Valencia Consulting Unavailable Ortiz Markham Consulting Unavailable Bakhous, Aziz Consulting Unavailable Tanphaichitr, Natthavat Consulting Unavailable Jeevan Machado Consulting Unavailable Ashelfah, Ghasem Admitting Unavailable Evangelina Hendricks PA-C Attending Unavailable [facility] Unavailable ErikRocael helton Consulting Unavailable Ortiz Markham Consulting Unavailable Bakhous, Aziz Consulting Unavailable Tanphaichitr, Natthavat Consulting Unavailable Cebul, Anoop Consulting Unavailable Gbaruk, Kombian Consulting Unavailable Ashelfah, Ghasem Admitting Unavailable Karthik Anoop Attending Unavailable [facility] Unavailable Rocael Valencia Consulting Unavailable Ortiz Markham Consulting Unavailable Bakhous, Aziz Consulting Unavailable Tanphaichitr, Natthavat Consulting Unavailable Cebul, Anoop Consulting Unavailable Gbaruk, Kombian Consulting Unavailable Ashelfah, Ghasem Admitting Unavailable [facility] Unavailable Rocael Valencia Consulting Unavailable Yari Cash Attending Unavailable Ortiz Markham Consulting Unavailable Bakhous, Aziz Consulting Unavailable Tanphaichitr, Natthavat Consulting Unavailable Cebul, Anoop Consulting Unavailable Gbaruk, Kombian Consulting Unavailable Yari Cash Attending Unavailable Ashelfah, Ghasem Admitting Unavailable [facility] Unavailable Rocael Valencia Consulting Unavailable Ortiz Markham Consulting Unavailable Bakhous, Aziz Consulting Unavailable Tanphaichitr, Natthavat Consulting Unavailable Cebul, Anoop Consulting Unavailable Gbaruk, Kombian Consulting Unavailable [facility] Unavailable Irma Rockwell Attending Unavailable Rocael Valencia Attending Unavailable Ashelfah, Ghasem Referring Unavailable Alice, Kristoferpraarturo Attending Unavailable AliceDomingo Referring Unavailable [facility] Care Unavailable Josi Hickman Attending Unavailable Jeevan Machado Referring Unavailable Rocael Valencia Attending Unavailable Jeevan Machado Referring Unavailable Josi Hickman Attending [facility] Referring Unavailable [facility] Primary Care Unavailable Alice, Jayaprakash Attending Unavailable Alice, Jayaprakash Referring Unavailable [facility] Primary Care Unavailable [facility] Primary Care Unavailable aruk, Kombian Admitting Unavailable Alice, Jayaprakash Consulting Unavailable Ashelfah, Ghasem Attending Unavailable Erik, Rocael Consulting Unavailable Cebul, Anoop Consulting Unavailable Darien Mcclendon Attending Unavailable Jeevan Machado Referring Unavailable Gbaruk, Kombian Admitting Unavailable [facility] Primary Care Unavailable Erik, Rocael Consulting Unavailable Gwyn Agudelo Attending Unavailable Alice, Jayaprakash Consulting Unavailable Gbaruk, Kombian Consulting Unavailable Gbaruk, Kombian Admitting Unavailable Ashelfah, Ghasem Attending Unavailable [facility] Primary Care Unavailable Alice, Jayaprakash Consulting Unavailable Erik, Rocael Consulting Unavailable Ashelfah, Ghasem Consulting Unavailable Gbaruk, Kombian Admitting Unavailable Viviana Childers BUTTER PRODUCTION SUPERVISOR-C Attending Unavailable [facility] Primary Care Unavailable Alice, Jayaprakash Consulting Unavailable Erik, Rocael Consulting Unavailable Ashelfah, Ghasem Consulting Unavailable Gbaruk, Kombian Admitting Unavailable Erik Rocael Attending Unavailable [facility] Primary Care Unavailable Alice, Jayaprakash Consulting Unavailable Erik, Rocael Consulting Unavailable Ashelfah, Ghasem Consulting Unavailable Gbaruk, Kombian Admitting Unavailable Ashelfah, Ghasem Attending Unavailable [facility] Care Unavailable Alice, Jayaprakash Consulting Unavailable Erik, Rocael Consulting Unavailable Ashelfah, Ghasem Consulting Unavailable Gbaruk, Kombian Admitting Unavailable Ashelfah, Ghasem Attending Unavailable [facility] Primary Care Unavailable Alice, Jayaprakash Consulting Unavailable Erik, Rocael Consulting Unavailable Cebul, Anoop Consulting Unavailable Ashelfah, Ghasem Consulting Unavailable Gbaruk, Kombian Admitting Unavailable Viviana Childers BUTTER PRODUCTION SUPERVISOR-C Attending Unavailable [facility] Primary Care Unavailable Alice, Jayaprakash Consulting Unavailable Erik, Rocael Consulting Unavailable Cebul, Anoop Consulting Unavailable Ashelfah, Ghasem Consulting Unavailable Gbaruk, Kombian Admitting Unavailable Rocael Valencia Attending Unavailable [facility] Primary Care Unavailable Alice, Jayaprakash Consulting Unavailable Erik, Rocael Consulting Unavailable Cebul, Anoop Consulting Unavailable Ashelfah, Ghasem Consulting Unavailable Gbaruk, Kombian Admitting Unavailable Keilybul, Anoop Attending Unavailable [facility] Primary Care Unavailable Alice, Jayaprakash Consulting Unavailable Erik, Rocael Consulting Unavailable Cebul, Anoop Consulting Unavailable Ashelfah, Ghasem Consulting Unavailable Gbaruk, Kombian Admitting Unavailable Ashelfah, Ghasem Attending Unavailable [facility] Primary Care Unavailable Alice, Jayaprakash Consulting Unavailable Rocael Valencia Consulting Unavailable Cebul, Anoop Consulting Unavailable Ashelfah, Ghasem Consulting Unavailable Jois Hickman Attending Unavailable Josi Hickman Referring Unavailable [facility] Care Unavailable Rocael Valencia Consulting Unavailable Karthik, Anoop Attending Unavailable Keilybul, Anoop Referring Unavailable [facility] Primary Care Unavailable [facility] Primary Care Unavailable Koram, Jen Penny Admitting Unavailable Alice, Jayaprakash Consulting Unavailable Mata Engle Attending Unavailable Aydin Carroll D.O. Consulting Unavailable Koram, Jen Penny Admitting Unavailable Mata Engle Attending Unavailable [facility] Primary Care Unavailable Alice, Jayaprakash Consulting Unavailable Aydin Carroll D.O. Consulting Unavailable Mata Engle Consulting Unavailable Koram, Jen Penny Admitting Unavailable Mata Engle Attending Unavailable [facility] Care Unavailable Alice, Jayaprakash Consulting Unavailable Aydin Carroll D.O. Consulting Unavailable Mata Engle Consulting Unavailable Reinier Lang Attending Unavailable Ashelfah, Ghasem Referring Unavailable Torstenl, Anoop Attending Unavailable Duffy, Mat Referring Unavailable [facility] Primary Care Unavailable Keilybul, Anoop Attending Unavailable Ashelfah, Ghasem Attending Unavailable Cebul, Anoop Attending Unavailable Cebul, Anoop Referring Unavailable [facility] Primary Care Unavailable Rocael Valencia Attending Unavailable Koram, Jen Penny Referring Unavailable Darien Mcclendon Attending Unavailable Duffy, Mat Referring Unavailable Cebul, Anoop Attending Unavailable Cebul, Anoop Referring Unavailable Duffy, Mat Primary Care Unavailable Anoop Angeles Consulting Unavailable Darien Mcclendon Attending Unavailable Duffy, Mat Referring Unavailable Duffy, Mat Primary Care Unavailable Ruthie SHAFFER-CEvangelina Attending Unavailable Duffy, Mat Referring Unavailable Duffy, Amt Primary Care Unavailable Reinier Lang Attending Unavailable Jen Rosales Referring Unavailable Vick, Josi Attending Unavailable Clive, Mat Referring Unavailable Hickman, Josi Attending Unavailable Hickman, Josi Referring Unavailable Duffy, Mat Primary Care Unavailable Ruthie SHAFFER-Porter, Evangelina Attending Unavailable Duffy, Mat Referring Unavailable Alice, Jayaprakash Attending Unavailable Alice, Jayaprakash Referring Unavailable Duffy, Mat Primary Care Unavailable Darien Mcclendon Attending Unavailable Alice, Jayaprakash Attending Unavailable Alice, Jayaprakash Referring Unavailable Duffy, Mat Primary Care Unavailable Vick, Josi Attending Unavailable Clive, Mat Referring Unavailable Vick, Josi Attending Unavailable Hickman, Josi Referring Unavailable [...] Unavailable Alice, Jayaprakash Referring Unavailable Zeenat Harp Consulting Unavailable Aydin Carroll D.O. Attending Unavailable Vick, Josi Referring Unavailable Alice, Jayaprakash Attending Unavailable Anoop Angeles Attending Unavailable Duffy, Mat Referring Unavailable Duffy, Mat Primary Care Unavailable Alice, Jayaprakash Attending Unavailable Alice, Jayaprakash Referring Unavailable Duffy, Mat Primary Care Unavailable Adriana Jovel BUTTER PRODUCTION SUPERVISOR-C Attending Unavailable Duffy, Mat Primary Care Unavailable Adriana Jovel BUTTER PRODUCTION SUPERVISOR-C Attending Unavailable Clive, Mat Primary Care Unavailable Alice, Jayaprakash Attending Unavailable Alice, Jayaprakash Referring Unavailable Mat Duffy Primary Care Unavailable Alice, Jayaprakash Attending Unavailable Alice, Jayaprakash Referring Unavailable Zeenat Harp Primary Care Unavailable Rocael Valencia Attending Unavailable Clive, Mat Referring Unavailable Norbert Bond Attending Unavailable Mat Duffy Referring Unavailable Anoop Angeles Attending Unavailable Zeenat Harp Referring Unavailable BIANCA LOBO Admitting Unavailable RAZWILLAM, VANI LAWSON Attending Unavailable TURJUDIEHIMehrdad, SARTHAK Consulting Unavailable BEREKET HAMMER (BUTTER PRODUCTION SUPERVISOR) Attending Unavailable BEREKET HAMMER (BUTTER PRODUCTION SUPERVISOR) Referring Unavailable MARNIE NIELSON Attending Unavailable RENY BANDA (PLANT FACILITIES TECHNICIAN) Attending Unavailable CLIVE, YAQUELIN Attending Unavailable CLIVE, YAQUELIN Attending Unavailable CLIVE, YAQUELIN Referring Unavailable Mat Duffy MD Primary Care Unavailable BIANCA LOBO Admitting Unavailable ALICE, JAYAPRAKASH R Consulting Unavailable VANI HODGE Attending Unavailable REJI, SARTHAK Consulting Unavailable PROBLEMS PROBLEMS DATE TYPE CONDITION / CODE ATTENDING STATUS SOURCE Unknown I50.33 - Acute on Bond, Active [place] 9 chronic diastolic [facility] (congestive) heart Hospital failure / Repository I50.33(ICD-10) Unknown N18.5 - Chronic kidney Bond, Active [place] 9 disease, stage 5 / [facility] N18.5(ICD-10) Hospital Repository Unknown I48.0 - Paroxysmal Bond, Active [place] 9 atrial fibrillation / [facility] I48.0(ICD-10) Hospital Repository Unknown N18.3 - Chronic kidney Alice, Active [place] 8 disease, stage 3 [facility] (moderate) / Hospital N18.3(ICD-10) Repository Unknown N18.4 - Chronic kidney Alice, Active [place] 8 disease, stage 4 [facility] (severe) / Hospital N18.4(ICD-10) Repository Unknown E55.9 - Vitamin D Alice, Active [place] 8 deficiency, Jayaprakash Community unspecified / Hospital E55.9(ICD-10) Repository Unknown T82.898A - Other Anoop Angeles Active [place] 8 specified complication Community of vascular prosthetic Hospital devices, implants and Repository grafts, initial encounter / T82.898A(ICD-10) Unknown J96.21 - Acute and Aydin Glen Active [place] 8 chronic respiratory D.O. Community failure with hypoxia / Hospital J96.21(ICD-10) Repository Unknown J96.22 - Acute and Aydin Glen Active [place] 8 chronic respiratory D.O. Community failure with Hospital hypercapnia / Repository J96.22(ICD-10) Unknown J44.9 - Chronic Aydin Glen Active [place] 8 obstructive pulmonary D.O. Community disease, unspecified / Hospital J44.9(ICD-10) Repository Unknown G89.18 - Other acute Anoop Angeles Active [place] 8 postprocedural pain / Community G89.18(ICD-10) Hospital Repository Unknown R94.31 - Abnormal Danelle, Baker Active [place] 8 electrocardiogram Community [ECG] [EKG] / Hospital R94.31(ICD-10) Repository Unknown R06.02 - Shortness of RosaliaisjameyReinier Active [place] 8 breath / Community R06.02(ICD-10) Hospital Repository Unknown R00.1 - Bradycardia, Reinier Lang Active [place] 8 unspecified / Community R00.1(ICD-10) Hospital Repository Active Acute kidney failure, [facility] Active [place] 8 unspecified / [facility] Other N17.9(ICD-10) [place] Repository Active Heart failure, RAZACK, [facility] Active [place] [facility] unspecified / [facility] Other I50.9(ICD-10) [place] Repository Active Obesity, unspecified / [place], [facility] Active [place] 8 E66.9(ICD-10) [facility] Other [place] Repository Active Body mass index (bmi) RA[place]ACK, [facility] Active [place] 8 36.0-36.9, adult / [facility] Clinic Other Z68.36(ICD-10) [place] Repository Active Obstructive sleep RAZACK, [place] [address] apnea (adult) [facility] Clinic Other (pediatric) / [place] G47.33(ICD-10) Repository Active Pleural effusion, not RAZACK, [facility] Active [place] 8 elsewhere classified / [facility] Clinic Other J90(ICD-10) [place] Repository Active Acute and chronic RAZACK, [place] [address] respiratory failure [facility] Clinic Other with hypoxia / [place] J96.21(ICD-10) Repository Active [facility] Active [place] [address] diastolic (congestive) [facility] Clinic Other heart failure / [place] I50.33(ICD-10) Repository Active Secondary pulmonary RAZACK, [place] [address] arterial hypertension [facility] Clinic Other / I27.21(ICD-10) [place] Repository Active Arteritis, [facility] [place] [address] / I77.6(ICD-10) [facility] Clinic Other [place] Repository Active Acute systolic RAZACK, [place] [address] (congestive) heart [facility] Clinic Other failure / [place] I50.21(ICD-10) Repository Admitting Unknown / UNK(Unknown) LAURA, [facility] Active [place] [address] diagnosis Health System Repository Active Unknown / UNK(Unknown) BEREKET HAMMER [place] [address] (BUTTER PRODUCTION SUPERVISOR) Clinic Main [place] Repository PROCEDURES PROCEDURES No Procedure Records FoundRESULTS RESULTS CARDIOLOGY VISIT Observed: 10/28/2018 Status: F Source: ANTONIT[facility] REPORT 4:01 PM [facility] REPOSITORY [facility] [address] [place] [address] OFFICE VISIT Date of Service: 10/28/18 MR#: [id number] Acct: [id number] Name: MICHAEL GARCIA Rep #: [id number] : 1945 Provider: Norbert Bond Age/Sex: 72/F [place] [facility] Status: Signed HPI HPI Details: MICHAEL GARCIA, is a 72 F who presents to the office today for a follow up for concerns over increase in weight and SOB. She did have 3 days of IV lasix and was to see the machinist outside. She has a history of diastolic heart [...] F Source: CHRISTOPHER PROFILE (BMP) 12:06 PM [facility] REPOSITORY TYPE CODE TESTS RESULT OUT OF [...] GAP 6 Performed By: #### L500.2500 #### [facility] [address] [place], [address] CARDIOLOGY VISIT Observed: 10/22/2018 Status: F Source: ANTONIT[place] REPORT 5:38 PM [facility] REPOSITORY [facility] [place] [facility] [address] [place] [address] OFFICE VISIT Date of Service: 10/21/18 MR#: [id number] Acct: [id number] Name: MICHAEL GARCIA Rep #: [id number] : 1945 Provider: Norbert Bond Age/Sex: 72/F [place] [facility] Status: Signed HPI HPI Chief Complaint: recheck [...] brachial Intake Visit Reasons: 6 wk FU [employer] Required: No Accompanied by: Is patient in [...] meq PO DAILY 10/21/18 [History Confirmed 10/21/18] [facility] Medical History Chronic renal insufficiency, stage [...] Observed: 10/21/2018 Status: F Source: [place]RISTOPHER BY [facility] 2:37 PM [facility] REPOSITORY [address] [address] 12 Lead EKG performed by [facility] 10/21/18 1437 MR#: [id number] Acct: [id number] Name: MICHAEL GARCIA Rep #: [id number] : 1945 72 From: Norbert SHAFFER Attending Dr: Norbert Bond Status: DEP AMB Ordering Dr: Norbert Bond Date: 10/21/18 Location: [facility] Sex: F C Admitted: BMS/12 Lead EKG performed by [facility] ECG Report Interpretation Sinus Bradycardia -Left axis -anterior fascicular block. -Old anterior infarct. Low voltage with rightward P-axis and rotation -possible pulmonary disease. ABNORMAL Electronically signed on 10/27/2018 at 13:29 by Darien Mcclendon Software Version [id number] 10/27/18 1334 Date Norbert SHAFFER CC: Mat Duffy MD Date Dictated: 10/21/181436 Date Transcribed: 10/21/181436 Gore Seamer: [place] Signed KIDNEY AND BLADDER Observed: 10/01/2018 Status: F Source: CHRISTOPHER 12:08 PM [facility] REPOSITORY [facility] [address] [place] [address] Kidney and Bladder MR#: [id number] Acct: [id number] Name: MICHAEL GARCIA Rep #: [id number] : 1945 F 72 From: Luisa Mcnulty MD PCP: Zeenat Harp MD Status: REG CLI Study: Kidney and Bladder Date of Exam: 10/01/18 Exam# [id number] Ordering Dr: Trell Jenkins MD STUDY: RENAL [...] CC: Zeenat Harp MD; Domingo Jenkins M.D. Gore Seamer: Signed CBC-COMPLETE BLOOD CNT Collected: 09/18/2018 Status: F Source: ANTONITO NO DIFF 1:30 PM [facility] REPOSITORY Order Comment: GABBY WANTS THE BMP [...] MPV 9.4 Performed By: #### L100.0500 #### [facility] [place], [address] PROTEIN+CREATININE Collected: Status: F Source: CHRISTOPHER RATIO,URINE 09/18/2018 1:30 PM [facility] REPOSITORY Order Comment: GABBY WANTS THE BMP ALICE WANTS THE PROCRE PTH VITD CBC BMP ALB TYPE CODE TESTS RESULT OUT OF RANGE REFERENCE UNITS LAB L501.1200 NO RANGE EST. mg/dL Normal UR CREAT 58.00 LAB L501.1930 <11.9 mg/dL High 88.0 PROTEIN,UR.R AN. LAB L501.1940 0-200 mg/g CRE High PROT:CRE 1517 RATIO Performed By: #### L501.0900 #### [facility] [address] [place], [place], [address] PTHIN Collected: 09/18/2018 Status: F Source: CHRISTOPHER 1:30 PM [facility] REPOSITORY Order Comment: GABBY WANTS THE BMP ALICE WANTS THE PROCRE PTH VITD CBC BMP ALB TYPE CODE TESTS RESULT OUT OF RANGE REFERENCE UNITS LAB L509.1000 18.4-80.1 pg/mL High PTHIN 102.8 Performed By: #### L509.1000 #### [facility] [address] [place], [place], [address] VITAMIN D,25 HYDROXY Collected: 09/18/2018 Status: F Source: CHRISTOPHER 1:29 PM [facility] REPOSITORY Order Comment: GABBY WANTS THE BMP [...] (>250 nmol/L) Performed By: #### L506.1000 #### [facility] [address] [place], [address] BASIC METABOLIC Collected: 09/18/2018 Status: F Source: CHRISTOPHER PROFILE (BMP) 1:27 PM [facility] REPOSITORY Order Comment: GABBY WANTS THE BMP [...] 5 Performed By: #### L500.2500, L501.1800 #### [facility] [address] [place], [place], [id number] ALBUMIN, SERUM Collected: 09/18/2018 Status: F Source: CHRISTOPHER 1:27 PM [facility] REPOSITORY Order Comment: GABBY WANTS THE BMP ALICE WANTS THE PROCRE PTH VITD CBC BMP ALB TYPE CODE TESTS RESULT OUT OF RANGE REFERENCE UNITS LAB L501.1800 3.2-5.0 g/dL Normal ALB 3.4 Performed By: #### L500.2500, L501.1800 #### [facility] [address] [place], [place], [address] CARDIOLOGY VISIT Observed: 09/14/2018 Status: F Source: ANTONITO REPORT 7:29 AM [facility] REPOSITORY [facility] [address] [place] [address] OFFICE VISIT Date of Service: 09/09/18 MR#: [id number] Acct: [id number] Name: MICHAEL GARCIA Rep #: [id number] : 1945 Provider: Norbert Bond Age/Sex: 72/F Location: [facility] Status: Signed HPI HPI Chief Complaint: post [...] brachial Intake Visit Reasons: 4 M FU Metal Refiner Required: No Is patient in pain?: No [...] us next week after she sees a machinist outside with an update on nephrology's input in [...] VISIT REPORT Observed: 09/09/2018 Status: F Source: ANTONITO 3:09 PM [facility] REPOSITORY [facility] [address] [place] [address] OFFICE VISIT Date of Service: 09/09/18 MR#: [id number] Acct: [id number] Name: MICHAEL GARCIA Rep #: [id number] : 1945 Provider: Anoop Angeles MD Age/Sex: 72/F Location: [facility] Status: Signed Intake Vital Signs09/09/18 Body Mass Index (BMI) 36.6 Intake Visit Reasons: Fistula Check - Per patient's is due Chief Complaint: recheck fistula Metal Refiner Required: No Is patient in pain?: No [...] She does have multiple medical comorbidities. Her machinist outside is Exam Extrem Other: Left forearm: Well-healed [...] F Source: CHRISTOPHER BY ASIA 1:35 PM [facility] REPOSITORY [facility] [address] [place] [address] 12 Lead EKG performed by ASIA 09/09/18 1334 MR#: [id number] Acct: [id number] Name: MICHAEL GARCIA Rep #: [id number] : 1945 72 From: Norbert SHAFFER Attending Dr: Norbert Bond Status: DEP AMB Ordering Dr: Norbert Bond Date: 09/09/18 Location: [facility] Sex: F C Admitted: BMS/12 Lead EKG performed by [facility] ECG Report Interpretation Sinus Rhythm -Right sided [...] Date Dictated: 09/09/18 1334 Date Transcribed: 09/09/181333 Gore Seamer: [place] Signed PULMONARY VISIT REPORT Observed: 09/09/2018 Status: F Source: ANTONITO 11:03 AM [facility] of [address] [place] [address] OFFICE VISIT Date of Service: 09/09/18 MR#: [id number] Acct: [id number] Name: MICHAEL GARCIA Rep #: [id number] : 1945 Provider: Rocael Valencia MD Age/Sex: 72/F Location: [facility] Status: Signed Assessment AND Plan Problems 1. [...] Cantu Plan Detail Follow Up 3 Months ([facility]) HPI 3 M FU: Chief Complaint: [...] 03/01/18 [History Confirmed 09/09/18] Hydrocodone Bitart/Apap 5-325 [Vanduser 5MG-325MG] 1 tab PO Q6H PRN PRN [...] V N18.5 09/09/18 1103 <Electronically signed by Roceal Valencia MD> Date Rocael Valencia MD Cosigner Signature: Date (if applicable) CC: Mat Duffy MD CBC-COMPLETE BLOOD CNT Collected: 08/10/2018 Status: F Source: ANTONITO NO DIFF 10:09 AM [facility] REPOSITORY TYPE CODE TESTS RESULT OUT OF [...] MPV 9.4 Performed By: #### L100.0500 #### [facility] [address] [place], [address] PROTEIN+CREATININE Collected: Status: F Source: CHRISTOPHER RATIO,URINE 08/10/2018 10:09 AM [facility] REPOSITORY TYPE CODE TESTS RESULT OUT OF RANGE REFERENCE UNITS LAB L501.1200 NO RANGE EST. mg/dL Normal UR CREAT 79.60 LAB L501.1930 <11.9 mg/dL High 60.0 PROTEIN,UR.R AN. LAB L501.1940 0-200 mg/g CRE High PROT:CRE 754 RATIO Performed By: #### L501.0900 #### [facility] [address] [place], [place], [address] RENAL PROFILE Collected: 08/10/2018 Status: F Source: CHRISTOPHER 10:09 AM [facility] REPOSITORY TYPE CODE TESTS RESULT OUT OF [...] CO2 30.0 Performed By: #### L500.3600 #### [facility] [address] [place], [place], [address] PTHIN Collected: 08/10/2018 Status: F Source: CHRISTOPHER 10:09 AM [facility] REPOSITORY TYPE CODE TESTS RESULT OUT OF RANGE REFERENCE UNITS LAB L509.1000 18.4-80.1 pg/mL High PTHIN 169.7 Performed By: #### L509.1000 #### [facility] [address] [place], [place], [address] VITAMIN D,25 HYDROXY Collected: 08/10/2018 Status: F Source: CHRISTOPHER 10:09 AM [facility] REPOSITORY TYPE CODE TESTS RESULT OUT OF RANGE REFERENCE UNITS LAB L506.1000 29.95-100.01 ng/mL Normal Vitamin D 37.3 25-OH Result Comment: Vitamin D 25(OH) Status Range Deficiency <20 ng/mL (50nmol/L) Insuffciency 20 - 30 ng/mL (50 - 75 nmol/L) Sufficiency 30 - 100 ng/mL (75 - 250 nmol/L) Toxicity >100 ng/mL (>250 nmol/L) Performed By: #### L506.1000 #### [facility] [address] [place], [address] HEMOGLOBIN A1C Collected: 06/24/2018 Status: F Source: CHRISTOPHER 11:43 AM [facility] REPOSITORY Order Comment: PLEASE SEND RESULTS TO DR. JENKINS AND DR HOUSE BOTH PER PT REQUEST. TYPE CODE TESTS RESULT OUT OF RANGE REFERENCE UNITS LAB L501.9985 4.2-6.3 % High HGB A1C 7.9 Performed By: #### L501.9985 #### [facility] [address] [place], [address] CBC-COMPLETE BLOOD CNT Collected: 06/24/2018 Status: F Source: CHRISTOPHER NO DIFF 11:26 AM [facility] REPOSITORY TYPE CODE TESTS RESULT OUT OF [...] MPV 9.9 Performed By: #### L100.0500 #### [facility] [address] [place], [address] PROTEIN+CREATININE Collected: Status: F Source: CHRISTOPHER RATIO,URINE 06/24/2018 11:26 AM [facility] REPOSITORY Order Comment: PLEASE SEND RESULTS TO DR. JENKINS AND DR HOUSE BOTH PER PT REQUEST. TYPE CODE TESTS RESULT OUT OF RANGE REFERENCE UNITS LAB L501.1200 NO RANGE EST. mg/dL Normal UR CREAT 110.00 LAB L501.1930 <11.9 mg/dL High 34.1 PROTEIN,UR.R AN. LAB L501.1940 0-200 mg/g CRE High PROT:CRE 310 RATIO Performed By: #### L501.0900 #### [facility] [address] [place], [address] PTHIN Collected: 06/24/2018 Status: F Source: CHRISTOPHER 11:26 AM [facility] REPOSITORY Order Comment: PLEASE SEND RESULTS TO DR. JENKINS AND DR HOUSE BOTH PER PT REQUEST. TYPE CODE TESTS RESULT OUT OF RANGE REFERENCE UNITS LAB L509.1000 18.4-80.1 pg/mL High PTHIN 219.2 Performed By: #### L509.1000 #### [facility] [address] [place], [address] VITAMIN D,25 HYDROXY Collected: 06/24/2018 Status: F Source: CHRISTOPHER 11:26 AM [facility] REPOSITORY Order Comment: PLEASE SEND RESULTS TO [...] (>250 nmol/L) Performed By: #### L506.1000 #### [facility] [address] [place], [address] PROTEIN, TOTAL Collected: 06/24/2018 Status: F Source: ANTONITO 11:26 AM [facility] REPOSITORY Order Comment: PLEASE SEND RESULTS TO DR. JENKINS AND DR HOUSE BOTH PER PT REQUEST. TYPE CODE TESTS RESULT OUT OF RANGE REFERENCE UNITS LAB L501.1500 6.4-8.2 g/dL Normal T PROT 8.0 LAB L501.1950 2.2-4.2 g/dL High GLOB 4.7 LAB L501.2000 0.9-2.4 RATIO Low A/G 0.7 Performed By: #### L001.0705, L500.3600, L500.4100, L501.4100, L501.4305, L501.4405, L501.4600, L501.4700 #### [facility] [address] [place], [address] RENAL PROFILE Collected: 06/24/2018 Status: F Source: ANTONITO 11:26 AM [facility] REPOSITORY Order Comment: PLEASE SEND RESULTS TO [...] L500.4100, L501.4100, L501.4305, L501.4405, L501.4600, L501.4700 #### [facility] [address] [place], [address] LIPID PROFILE Collected: 06/24/2018 Status: F Source: CHRISTOPHER 11:26 AM [facility] REPOSITORY Order Comment: PLEASE SEND RESULTS TO [...] L500.4100, L501.4100, L501.4305, L501.4405, L501.4600, L501.4700 #### [facility] [address] [place], [place], [address] (606) AST(SGOT) Collected: 06/24/2018 Status: F Source: ANTONITO 11:26 AM [facility] REPOSITORY Order Comment: PLEASE SEND RESULTS TO DR. JENKINS AND DR HOUSE BOTH PER PT REQUEST. TYPE CODE TESTS RESULT OUT OF RANGE REFERENCE UNITS LAB L501.4100 15-37 U/L Low AST 7 Performed By: #### L001.0705, L500.3600, L500.4100, L501.4100, L501.4305, L501.4405, L501.4600, L501.4700 #### [facility] [address] [place], [place], [address] ALKALINE PHOSPHATASE Collected: 06/24/2018 Status: F Source: ANTONITO 11:26 AM [facility] REPOSITORY Order Comment: PLEASE SEND RESULTS TO DR. JENKINS AND DR HOUSE BOTH PER PT REQUEST. TYPE CODE TESTS RESULT OUT OF RANGE REFERENCE UNITS LAB L501.4305 45-117 U/L Normal ALK P 111 Performed By: #### L001.0705, L500.3600, L500.4100, L501.4100, L501.4305, L501.4405, L501.4600, L501.4700 #### [facility] [address] [place], [place], [address] ALANINE AMINOTRANSFERAS Collected: 06/24/2018 Status: F Source: ANTONITO (SGPT) 11:26 AM [facility] REPOSITORY Order Comment: PLEASE SEND RESULTS TO DR. JENKINS AND DR HOUSE BOTH PER PT REQUEST. TYPE CODE TESTS RESULT OUT OF RANGE REFERENCE UNITS LAB L501.4405 13-56 U/L Normal ALT 15 Performed By: #### L001.0705, L500.3600, L500.4100, L501.4100, L501.4305, L501.4405, L501.4600, L501.4700 #### [facility] [address] [place], [place], [address] TOTAL BILIRUBIN Collected: 06/24/2018 Status: F Source: ANTONITO 11:26 AM [facility] REPOSITORY Order Comment: PLEASE SEND RESULTS TO DR. JENKINS AND DR HOUSE BOTH PER PT REQUEST. TYPE CODE TESTS RESULT OUT OF RANGE REFERENCE UNITS LAB L501.4600 0.20-1.00 mg/dL Normal T BILI 0.50 Performed By: #### L001.0705, L500.3600, L500.4100, L501.4100, L501.4305, L501.4405, L501.4600, L501.4700 #### [facility] [address] [place], [place], [address] BILIRUBIN, DIRECT Collected: 06/24/2018 Status: F Source: ANTONITO 11:26 AM [facility] REPOSITORY Order Comment: PLEASE SEND RESULTS TO DR. JENKINS AND DR HOUSE BOTH PER PT REQUEST. TYPE CODE TESTS RESULT OUT OF RANGE REFERENCE UNITS LAB L501.4700 0.00-0.30 mg/dL Normal D BILI 0.19 Performed By: #### L001.0705, L500.3600, L500.4100, L501.4100, L501.4305, L501.4405, L501.4600, L501.4700 #### [facility] [address] [place], [place], [address] RENAL PROFILE Collected: 06/09/2018 Status: F Source: ANTONITO 7:41 AM [facility] REPOSITORY TYPE CODE TESTS RESULT OUT OF [...] CO2 28.0 Performed By: #### L500.3600 #### [facility] [address] [facility] [place], [place], [address] SURGERY VISIT REPORT Observed: 06/04/2018 Status: F Source: ANTONITO 8:03 AM [facility] REPOSITORY [facility] [address] [place] [address] OFFICE VISIT Date of Service: 06/04/18 MR#: [id number] Acct: [id number] Name: MICHAEL GARCIA Rep #: [id number] : 1945 Provider: Anoop Angeles MD Age/Sex: 72/F Location: [facility] Status: Signed Intake Intake Visit Reasons: Cath [...] 03/01/18 [History Confirmed 04/28/18] Hydrocodone Bitart/Apap 5-325 [Vanduser 5MG-325MG] 1 tab PO Q6H PRN PRN [...] were provided. Anoop Angeles M.D., F.A.C.S. Port/Peg [id number] Dialysis Cath Remov Assessment AND Plan Problems 1. Problem with dialysis access, initial encounter T82.347F Plan Successfully removed right internal jugular dialysis catheter. Very nicely functioning transposed left forearm cephalic vein to radial artery arteriovenous fistula. Not currently on hemodialysis. The patient will return to my office in 3 months time for routine surgical follow-up regarding her left forearm AV fistula. Anoop Angeles M.D., F.A.C.S. Orders Orders: Coding Level of Care Code Attention Wheel Presser Diagnoses Problem with dialysis access, initial encounter T82.414Q Encounter type: initial encounter Additional Codes Port/Peg - Port/Pe Dialysis Cath Remov ([id number]) 06/04/18 0803 <Electronically signed by Anoop Angeles MD> Date Anoop Cuellar Signature: Date (if applicable) CC: BASIC METABOLIC Collected: 06/01/2018 Status: F Source: CHRISTOPHER PROFILE (BMP) 9:37 AM [facility] REPOSITORY TYPE CODE TESTS RESULT OUT OF [...] 8 Performed By: #### L500.2500, L500.3600 #### [facility] [address] [place], [address] RENAL PROFILE Collected: 06/01/2018 Status: F Source: CHRISTOPHER 9:37 AM [facility] REPOSITORY TYPE CODE TESTS RESULT OUT OF [...] 3.0 Performed By: #### L500.2500, L500.3600 #### [facility] [address] [place], [place], [address] BASIC METABOLIC Collected: 05/25/2018 Status: F Source: ANTONITO PROFILE ([facility]) 1:14 PM [facility] REPOSITORY TYPE CODE TESTS RESULT OUT OF [...] GAP 12 Performed By: #### L500.2500 #### [facility] [address] [place], [address] SURGERY VISIT REPORT Observed: 05/19/2018 Status: F Source: ANTONITO 1:18 PM [facility] REPOSITORY [facility] [address] [facility] [place] [address] OFFICE VISIT Date of Service: 05/19/18 MR#: [id number] Acct: [id number] Name: MICHAEL GARCIA Rep #: [id number] : 1945 Provider: Anoop Angeles MD Age/Sex: 72/F Location: [facility] Status: Signed Intake Intake Visit Reasons: Fistula Creation 04/02 Chief Complaint: post fistula placement Metal Refiner Required: No Is patient in pain?: No [...] 03/01/18 [History Confirmed 04/28/18] Hydrocodone Bitart/Apap 5-325 [Vanduser 5MG-325MG] 1 tab PO Q6H PRN PRN [...] 05/19/2018 Status: F Source: CHRISTOPHER 11:01 AM [facility] REPOSITORY [facility] Pulmonary Services/Neurology [facility] [place] [address] MR#: [id number] Acct: [id number] Name: MICHAEL GARCIA Rep #: [id number] : 1945 72 From: Aydin Carroll DO Referring Dr: Josi Hickman NP Date: Ordering Dr: Sex: F C Location: PSN PSN 6 Minute Walk Test - 6 Minute Walk Test 6 Minute Walk Test: 6 Minute Walk Test PSN:6-Minute Walk Test Start: 05/19/18 08:35 Freq: Status: Active Protocol: RESP.6MINW Document 05/19/18 08:35 NEHEMIAS (Rec: 05/19/18 08:41 SFMAXIMUSON [id number]) 6 Minute Walk Test Date Performed 05/19/18 [...] 738 05/19/18 08:39 Cardiopulmonary Services by Gwen Maurre Patient wears 2 lpm O2 at home. [...] CC: Date Dictated: 05/19/181058 Date Transcribed: 05/19/181058 Gore Seamer: Aydin Carroll DO Signed BASIC METABOLIC Collected: 05/19/2018 Status: F Source: CHRISTOPHER PROFILE (BMP) 7:46 AM [facility] REPOSITORY TYPE CODE TESTS RESULT OUT OF [...] GAP 10 Performed By: #### L500.2500 #### [facility] [address] [place], [place], [address] PULMONARY VISIT REPORT Observed: 05/14/2018 Status: F Source: CHRISTOPHER 8:44 AM [facility] REPOSITORY [facility] [place] [address] [place], [place] [address] OFFICE VISIT Date of Service: 05/13/18 MR#: [id number] Acct: [id number] Name: MICHAEL GARCIA Rep #: [id number] : 1945 Provider: Josi Hickman Age/Sex: 72/F Location[place] [facility] Status: Signed Assessment AND Plan 1. Acute [...] 03/01/18 [History Confirmed 04/28/18] Hydrocodone Bitart/Apap 5-325 [Vanduser 5MG-325MG] 1 tab PO Q6H PRN PRN [...] F Source: CHRISTOPHER PROFILE (BMP) 6:42 AM [facility] REPOSITORY TYPE CODE TESTS RESULT OUT OF [...] GAP 12 Performed By: #### L500.2500 #### [facility] [address] [place], [address] BASIC METABOLIC Collected: 05/07/2018 Status: F Source: ANTONITO PROFILE ([facility]) 12:39 PM [facility] REPOSITORY TYPE CODE TESTS RESULT OUT OF [...] GAP 8 Performed By: #### L500.2500 #### [facility] [address] [place], [address] SURGERY VISIT REPORT Observed: 04/28/2018 Status: F Source: ANTONITO 1:35 PM [facility] REPOSITORY [facility] [address] [place] [address] OFFICE VISIT Date of Service: 04/28/18 MR#: [id number] Acct: [id number] Name: MICHAEL GARCIA Rep #: [id number] : 1945 Provider: Evangelina Hendricks PA-C Age/Sex: 72/F Location: [facility] Status: Signed Intake Intake Visit Reasons: Fistula Creation 04/02 Chief Complaint: post fistula placement Metal Refiner Required: No Is patient in pain?: No [...] 03/01/18 [History Confirmed 04/28/18] Hydrocodone Bitart/Apap 5-325 [Vanduser 5MG-325MG] 1 tab PO Q6H PRN PRN 2 Days #5 tab 04/02/18 [Rx Confirmed 04/28/18] furosemide 40 mg tablet 40 mg PO .COMPLEX 04/06/18 [History Confirmed 04/28/18] pantoprazole 40 mg tablet,delayed release 40 mg PO QDAY 04/06/18 [History Confirmed 04/28/18] amiodarone 200 mg tablet 200 mg PO QDAY 04/28/18 [History Confirmed 04/28/18] [facility] Medical History Chronic renal insufficiency, stage [...] have chest catheters. Dr. Jenkins is her machinist outside. She continues to perform hand exercises. 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 [address] [place] [address] OFFICE VISIT Date of Service: 04/07/18 MR#: [id number] Acct: [id number] Name: MICHAEL GARCIA Rep #: [id number] : 1945 Provider: Darien Mcclendon MD Age/Sex: 72/F Location[place] [facility] Status: Signed [facility] Details: MICHAEL GARCIA, is a 72 F [...] f/up (DC 03-03) - r/s from DT Metal Refiner Required: No Is patient in pain?: No [...] 03/01/18 [History Confirmed 04/07/18] Hydrocodone Bitart/Apap 5-325 [Vanduser 5MG-325MG] 1 tab PO Q6H PRN PRN [...] prior to saving. Follow Up 4 Months ([employer]/MMM) Coding Level of Care Code Off vis,est,level [...] Darien Mcclendon MD 04/13/18 1022<Electronically signed by Norbert SHAFFER> Cosigner Signature: Date (if applicable) Norbert Bond CC: Mat Duffy MD SURGERY VISIT REPORT Observed: 04/07/2018 Status: F Source: CHRISTOPHER 4:04 PM [facility] REPOSITORY [facility] [address] [place] [address] OFFICE VISIT Date of Service: 04/07/18 MR#: [id number] Acct: [id number] Name: MICHAEL GARCIA Rep #: [id number] : 1945 Provider: Evangelina Hendricks PA-C Age/Sex: 72/F Location: [facility] Status: Signed Intake Intake Visit Reasons: Fistula Creation 04/02 Chief Complaint: post fistula placement Metal Refiner Required: No Is patient in pain?: No [...] 03/01/18 [History Confirmed 04/07/18] Hydrocodone Bitart/Apap 5-325 [Vanduser 5MG-325MG] 1 tab PO Q6H PRN PRN [...] LEAD ELECTROCARDIOGRAM Observed: 04/03/2018 Status: F Source: ANTONITO 10:09 AM [facility] REPOSITORY [facility] Cardiovascular Services [address] [place] [address] 12 Lead EKG 04/02/18 0636 MR#: [id number] Acct: [id number] Name: MICHAEL GARCIA Rep #: [id number] : 1945 72 From: Darien Mcclendon MD Attending Dr: Anoop Angeles MD Status: [facility] Ordering Dr: Anoop Angeles MD Date: 04/02/18 Location: [facility] Sex: F C Admitted: Test Reason : [...] leads Confirmed by DARIEN MCCLENDON MD ([id number]), photograph editor OSIEL HINES ([id number]) on 04/03/2018 10:08:33 AM Referred By: Anoop Angeles Confirmed By:DARIEN MCCLENDON MD 04/03/18 1008 Date Darien Mcclendon MD CC: Anoop Angeles MD; Mat Duffy MD Signed DISCHARGE INSTRUCTION Observed: 04/02/2018 Status: F Source: CHRISTOPHER 12:02 PM [facility] REPOSITORY [facility] Medical Records Department [address] [place] [address] Instructions for Home/Discharge Instructions 04/02/18 0851 MR#: [id number] Acct: [id number] Name: MICHAEL GARCIA Rep #: [id number] : 1945 72 From: Anoop Angeles MD [...] mg PO DAILY 03/01/18 Hydrocodone Bitart/Apap 5-325 [Vanduser 5MG-325MG] 1 tablet PO Q6H PRN PRN 2 Days #5 tablet 04/02/18 The following prescriptions were given: Hydrocodone Bitart/Apap 5-325 [Vanduser 5MG-325MG] 1 tablet PO Q6H PRN PRN 2 Days #5 tablet PRN Reason: Pain Primary Care Physician: Mat Duffy MD [Primary Care Provider] - Please Follow Up With: Anoop Angeles MD - [phone] When: Call to make an appointment for follow up in 10 days. 04/02/18 1202 <Electronically signed by Anoop Angeles MD> Date Anoop Angeles MD CC: Mat Duffy MD OPERATIVE REPORT Observed: 04/02/2018 Status: F Source: CHRISTOPHER 10:31 AM [facility] REPOSITORY [facility] Medical Records Department [address] [place] [address] Operative Report 04/02/18 1027 MR#: [id number] Acct: [id number] Name: MICHAEL GARCIA Rep #: [id number] : 1945 72 From: Anoop Angeles MD PCP: Mat Duffy MD Status: [facility] Y Location: [place] [address] Problem List (1) Chronic renal insufficiency, stage [...] 04/02/2018 Status: F Source: CHRISTOPHER 6:55 AM [facility] REPOSITORY TYPE CODE TESTS RESULT OUT OF REFERENCE UNITS RANGE LAB L501.080 70-110 mg/dL High BEDSIDE GLU 210 Result Comment: MANAGEMENT OF PATIENT CARE PER NURSING PROTOCOL Performed By: #### L501.080 #### [facility] Point of [address] [place], [place] [address] BASIC METABOLIC Collected: 04/02/2018 Status: F Source: CHRISTOPHER PROFILE (BMP) 6:50 AM [facility] [facility] REPOSITORY TYPE CODE TESTS RESULT OUT OF [...] GAP 6 Performed By: #### L500.2500 #### [facility] [address] [place], [address] CBC-COMPLETE BLOOD CNT Collected: 04/02/2018 Status: F Source: CHRISTOPHER NO DIFF 6:50 AM [facility] REPOSITORY TYPE CODE TESTS RESULT OUT OF [...] MPV 9.3 Performed By: #### L100.0500 #### [facility] [address] [place], [address] PROGRESS Observed: 03/05/2018 Status: COMPLETED Source: ASHIPPUN 9:24 AM [facility] REPOSITORY HNO ID: [id number] Author: Mat Duffy Service: (none) Author Type: [...] Type 2 Diabetes Mellitus With Renal Manifestations ([facility]) Essential Hypertension With Goal Blood Pressure Less Than 130/85 Hyperlipidemia Legally Blind Diabetic Peripheral Neuropathy Associated With Type 2 Diabetes Mellitus ([facility]) Primary 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 ([facility]) Ckd (Chronic Kidney Disease) Stage V Requiring Chronic Dialysis ([facility]) Hypoxemia Chronic Diastolic Chf (Congestive Heart Failure) ([facility]) Anemia in Stage 3 Chronic Kidney Disease Paroxysmal Atrial Fibrillation ([facility]) Peripheral Arterial Occlusive Disease ([facility]) Current Outpatient Prescriptions: acetaminophen (TYLENOL 8 HOUR [...] MAURICE FriasOV Observed: 03/05/2018 Status: COMPLETED Source: ASHIPPUN 9:20 AM [facility] REPOSITORY Office Visit (INTMWS) MICHAEL GARCIA ([id number]) 1945 F BLD Date Time Provider Department [...] status, unspecified (Acute) Medication review completed Yes May Willams LPN Provider Documentation: In follow-up of [...] Mat Duffy MD Referring Provider: MAT DUFFY [[id number]] Allergies As of Date: 03/05/2018 (No Known Allergies) Date Reviewed: 03/05/2018 Reviewed by: Mya Willams LPN - Fully Assessed Reason for Visit: F/U 3 Month [443] TCM [Other] Cmt: Discharged from [facility] 03/03/2018 Primary Visit Diagnosis:Acute on chronic [...] 03/05/2018 9:19 AM >> MYA WILLAMS LPN [facility] March 05, 2018 9:19 AM D/C by [...] VISIT REPORT Observed: 03/05/2018 Status: F Source: ANTONITO 8:01 AM [facility] [address] [place] [address] [address] [place] [address] OFFICE VISIT Date of Service: 03/05/18 MR#: [id number] Acct: [id number] Name: JOSEMICHAEL Rose Rep #: [id number] : 1945 Provider: Anoop Angeles MD Age/Sex: 72/F Location: [facility] Status: Signed Intake Vital Signs03/05/18 Height 5 ft 5 in 03/05/18 Weight: 209 lb 3 oz 03/05/18 Body Mass Index (BMI) 34.8 03/05/18 Blood Pressure 108/67 Intake Visit Reasons: fistula creation Chief Complaint: fistula placement Metal Refiner Required: No Is patient in pain?: No [...] today. On February 26, 2018 at the [facility] she had bilateral upper extremity vein mapping. This demonstrates that bilateral upper extremity cephalic and basilic veins are patent and compressible. Bilateral brachial and radial arteries demonstrate normal flow. The patient is right arm dominant. The patient was hospitalized at the [facility] January 19 - January 22 with acute [...] distress Nutritional Appearance: overweight Orientation: alert, awake [facility] Head: normal to inspection Eyes General: appearance [...] create for her. 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 In addition it [...] LEAD ELECTROCARDIOGRAM Observed: 03/04/2018 Status: F Source: ANTONITO 2:39 PM [facility] REPOSITORY [facility] Cardiovascular Services [address] [place] [address] 12 Lead EKG 03/01/18 0937 MR#: [id number] Acct: [id number] Name: GARCIAMICHAEL Rep #: [id number] : 1945 72 From: Reinier Lang MD Attending Dr: Mata Engle DO Status: DIS IN Ordering Dr: Severiano Nino MD Date: 03/01/18 Location: [facility] Sex: F C Admitted: 03/01/18 Test Reason [...] wave progression Confirmed by REINIER LANG MD ([id number]), photograph editor HONORIO SHEFFIELD ([id number]) on 03/04/2018 2:39:19 PM Referred By: Anoop Angeles Confirmed By:REINIER LANG MD 03/04/18 1439 Date Reinier Lang MD CC: SEVERIANO NINO MD; Mata Engle DO; Mat Duffy MD Signed DISCHARGE SUMMARY Observed: 03/03/2018 Status: F Source: ANTONITO 9:11 AM [facility] REPOSITORY [facility] Medical Records Department [address] [place] [address] [place] [address] Discharge Summary 03/03/18907 MR#: [id number] Acct: [id number] Name: MICHAEL GARCIA Rep #: [id number] : 1945 72 From: Mata Engle DO PCP: Mat Duffy MD Status: ADM IN Y Location: [place] [address] Discharge Date and Diagnosis - Problem List [...] Within 2 Weeks [facility] When: every Friday, Friday, Friday Disposition: Home Minutes spent on discharge:: 28 Patient Condition:: Good Medical Necessity - Tobacco Use Smoking Status: Former smoker Meaningful Use Info Meaningful Use Diagnoses (Choose all that apply): None applicable Code Visit Inpatient E AND M: 58402 Disch Hosp 03/03/18910 <Electronically signed by Mata Engle DO> Date Mata Engle DO Cosigner Signature (if applicable): Date CC: Mata Engle DO; Mat Duffy MD Signed DISCHARGE INSTRUCTION Observed: 03/03/2018 Status: F Source: ANTONITO 9:08 AM [facility] REPOSITORY [facility] Medical Records Department [address] [place] [address] Instructions for Home/Discharge Instructions 03/03/18905 MR#: [id number] Acct: [id number] Name: MICHAEL GARCIA Rep #: [id number] : 1945 72 From: Mata Engle DO PCP: Mat Duffy MD Status: ADM IN - Discharge Diagnoses Current Active Problems: Current Active and Chronic Problems (Last Updated 01/22/18 @ 10:02 by Viviana Childers, BUTTER PRODUCTION SUPERVISOR-C) Acute hypercapnic respiratory failure (Acute) Lethargy (Acute) [...] 2 Weeks [facility], Friday, Friday Proposed Discharge Date: 03/03/18 03/03/18 0908 <Electronically signed by Mata Engle DO> Date Mata Engle DO CC: Aydin Carroll D.O.; Domingo Jenkins M.D.; Mat Duffy MD BEDSIDE GLUCOSE Collected: 03/03/2018 Status: F Source: CHRISTOPHER 6:25 AM [facility] REPOSITORY TYPE CODE TESTS RESULT OUT OF REFERENCE UNITS RANGE LAB L501.080 70-110 mg/dL High BEDSIDE GLU 180 Result Comment: Insulin Given MANAGEMENT OF PATIENT CARE PER NURSING PROTOCOL Performed By: #### L501.080 #### [facility] Point of Care [address] [place] [address] BASIC METABOLIC Collected: 03/03/2018 Status: F Source: ANTONITO PROFILE (BMP) 5:20 AM [facility] REPOSITORY TYPE CODE TESTS RESULT OUT OF [...] GAP 10 Performed By: #### L500.2500 #### [facility] [address] [place], [address] CONSULTATION Observed: 03/03/2018 Status: F Source: ANTONITO 5:18 AM [facility] REPOSITORY [facility] Medical Records Department [address] [place] [address] Consultation 03/02/18 0844 MR#: [id number] Acct: [id number] Name: MICHAEL GARCIA Rep #: [id number] : 1945 72 From: Rocael Valencia MD PCP: Mat Duffy MD Status: ADM IN Y Location: [place] [address] Problem List (1) Lethargy Status: Acute (2) [...] medical history listed below, who presented to [facility] on 03/01/2019 after being found with decreased [...] Updated 01/22/18 @ 10:02 by Viviana Childers, BUTTER PRODUCTION SUPERVISOR-C) ESRD (end stage renal disease) on dialysis [...] Surgical History: cholecystectomy, rotator cuff repair, - REEL TENDER History: No pertinent REEL TENDER history Lives: Spouse/ Significant Other Smoking Status: Former smoker Drugs: None - *Family History Maternal History Items: Cancer, Diabetes, Renal Disease Paternal History Items: Diabetes, Heart Disease, Renal Disease Review of Systems Unable to obtain accurate/complete ROS d/t: Per , see HPI Patient Problems: Active and Suspected Problems (Last Updated 01/22/18 @ 10:02 by Viviana Childers, BUTTER PRODUCTION SUPERVISOR-C) Acute hypercapnic respiratory failure (Acute) Lethargy (Acute) [...] Updated 01/22/18 @ 10:02 by Viviana Childers, BUTTER PRODUCTION SUPERVISOR-C) Acute hypercapnic respiratory failure (Acute) Lethargy (Acute) [...] therapy. Code Visit Inpatient E AND M: 47623 Init Hosp L3 03/03/1818 <Electronically signed by Rocael Valencia MD> Date Rocael Valencia MD Cosigner Signature (if applicable): Date CC: Aydin Carroll D.O.; Domingo Jenkins M.D.; Mat Duffy MD Signed BEDSIDE GLUCOSE Collected: 03/02/2018 Status: F Source: CHRISTOPHER 11:26 PM [facility] REPOSITORY TYPE CODE TESTS RESULT OUT OF REFERENCE UNITS RANGE LAB L501.080 70-110 mg/dL High BEDSIDE GLU 176 Result Comment: Insulin Given MANAGEMENT OF PATIENT CARE PER NURSING PROTOCOL Performed By: #### L501.080 #### [facility] Point of Care [address] [place] [address] CONSULTATION Observed: 03/02/2018 Status: F Source: ANTONITO 5:27 PM [facility] REPOSITORY [facility] Medical Records Department [address] [place] [address] Consultation 03/02/18 1724 MR#: [id number] Acct: [id number] Name: MICHAEL GARCIA Rep #: [id number] : 1945 72 From: Trell Jenkins MD PCP: Mat Duffy MD Status: ADM IN Y Location: [place] [address] Problem List (1) ESRD (end stage renal [...] pain/fever Aspirin (Aspirin) 325 mg PO DAILY@0800 COUNTS INCLUDE 234 BEDS AT THE [facility] Last Admin: 03/02/18 15:47 Dose: 325 mg Atorvastatin Calcium (Lipitor) 40 mg PO QHS COUNTS INCLUDE 234 BEDS AT THE [facility] Last Admin: 03/01/18 21:28 Dose: Not Given Clonidine (Catapres) 0.1 mg PO TID COUNTS INCLUDE 234 BEDS AT THE [facility] Last Admin: 03/02/18 15:46 Dose: 0.1 mg Dextrose (D50w Syringe) 0 gm IV X1 PRN; Protocol PRN Reason: Hypoglycemia Ergocalciferol (Vitamin D) 50,000 unit PO QMONTH COUNTS INCLUDE 234 BEDS AT THE [facility] Furosemide (Lasix) 40 mg IV BID@1000,1800 COUNTS INCLUDE 234 BEDS AT THE [facility] Last Admin: 03/02/18 16:02 Dose: 40 mg Glucagon () 1 mg IM .X1 PRN PRN Reason: Hypoglycemia Heparin Sodium (Porcine) (Heparin Na) 5,000 unit SC Q8 COUNTS INCLUDE 234 BEDS AT THE [facility] Last Admin: 03/02/18 15:46 Dose: 5,000 units Insulin Aspart (Novolog Flexpen (Bkc)) 0 units SC Q6 RUBI PRN Reason: Protocol Last Admin: 03/02/18 11:43 Dose: Not Given Magnesium Hydroxide (Milk Of Magnesia) 30 ml PO DAILY PRN PRN PRN Reason: Constipation Metoprolol Succinate (Toprol Xl (Beta Stephania)) 25 mg PO DAILY COUNTS INCLUDE 234 BEDS AT THE [facility] Last Admin: 03/02/18 15:47 Dose: 25 mg Nystatin (Mycostatin Powder) 1 applic TOPICAL BID RUBI PRN Reason: Protocol Last Admin: 03/02/18 15:44 Dose: 1 applicatio Pantoprazole Sodium (Protonix) 40 mg PO DAILY COUNTS INCLUDE 234 BEDS AT THE [facility] Last Admin: 03/02/18 15:46 Dose: 40 mg Polysaccharide Iron Complex (Ferrex 150) 150 mg PO DAILY COUNTS INCLUDE 234 BEDS AT THE [facility] Last Admin: 03/02/18 15:47 Dose: 150 mg Sodium Chloride () 5 - 30 ml IV UD PRN PRN Reason: SALINE FLUSH Last Admin: 03/02/18 15:47 Dose: 10 ml - Past Medical History Past Medical History (Chronic Problems): Chronic Problems (Last Updated 01/22/18 @ 10:02 by Viviana Childers, BUTTER PRODUCTION SUPERVISOR-C) ESRD (end stage renal disease) on dialysis [...] now completely discussed with at bedside 03/02/18 4315 <Electronically signed by Trell Jenkins MD> Date Trell Jenkins MD Cosigner Signature (if applicable): Date CC: Aydin Carroll D.O.; Domingo Jenkins M.D.; Mat Duffy MD Signed BEDSIDE GLUCOSE Collected: 03/02/2018 Status: F Source: CHRISTOPHER 4:47 PM [facility] REPOSITORY TYPE CODE TESTS RESULT OUT OF REFERENCE UNITS RANGE LAB L501.080 70-110 mg/dL High BEDSIDE GLU 169 Result Comment: MANAGEMENT OF PATIENT CARE PER NURSING PROTOCOL Performed By: #### L501.080 #### [facility] Point of Care [address] [place], [place] [address] HEPATITIS B SURFACE Collected: 03/02/2018 Status: F Source: CHRISTOPHER AG 11:45 AM [facility] REPOSITORY TYPE CODE TESTS RESULT OUT OF RANGE REFERENCE UNITS LAB L3100.0400 Negative Normal HB Negative SURF AG Result Comment: Performed at: [facility] [id number] Coffee Blender: Ayad Joy PhD, Phone: [phone] Performed By: #### L3100.0390 #### [facility] (refer to report for specific site) refer to report for address and phone number BEDSIDE GLUCOSE Collected: 03/02/2018 Status: F Source: CHRISTOPHER 11:37 AM [facility] REPOSITORY TYPE CODE TESTS RESULT OUT OF REFERENCE UNITS RANGE LAB L501.080 70-110 mg/dL High BEDSIDE GLU 121 Result Comment: MANAGEMENT OF PATIENT CARE PER NURSING PROTOCOL Performed By: #### L501.080 #### [facility] Point of Care [address] [place] [address] BEDSIDE GLUCOSE Collected: 03/02/2018 Status: F Source: CHRISTOPHER 5:18 AM [facility] REPOSITORY TYPE CODE TESTS RESULT OUT OF REFERENCE UNITS RANGE LAB L501.080 70-110 mg/dL High BEDSIDE GLU 166 Result Comment: Insulin Given Dr Orders Followed MANAGEMENT OF PATIENT CARE PER NURSING PROTOCOL Performed By: #### L501.080 #### [facility] Point of Care [address] [place] [address] CBC W/DIFF, AUTOMATED Collected: 03/02/2018 Status: F Source: CHRISTOPHER 5:11 AM [facility] REPOSITORY TYPE CODE TESTS RESULT OUT OF [...] Lymph 0.71 Performed By: #### L100.0100 #### [facility] [address] [place], [address] BASIC METABOLIC Collected: 03/02/2018 Status: F Source: CHRISTOPHER PROFILE (BMP) 5:11 AM [facility] REPOSITORY TYPE CODE TESTS RESULT OUT OF [...] Performed By: #### L500.2500, L501.2300, L501.5200 #### [facility] [address] [facility] [place], [place], [id number] PHOSPHORUS Collected: 03/02/2018 Status: F Source: ANTONITO 5:11 AM [facility] REPOSITORY TYPE CODE TESTS RESULT OUT OF RANGE REFERENCE UNITS LAB L501.2300 2.5-4.9 mg/dL High PHOS 5.5 Performed By: #### L500.2500, L501.2300, L501.5200 #### [facility] [address] [place], [place], [address] MAGNESIUM Collected: 03/02/2018 Status: F Source: ANTONITO 5:11 AM [facility] REPOSITORY TYPE CODE TESTS RESULT OUT OF RANGE REFERENCE UNITS LAB L501.5200 1.6-2.6 mg/dL Normal MG 2.0 Performed By: #### L500.2500, L501.2300, L501.5200 #### [facility] [address] [place], [address] BLOOD GASES BY CPS Collected: 03/01/2018 Status: F Source: CHRISTOPHER 11:43 PM [facility] REPOSITORY TYPE CODE TESTS RESULT OUT OF RANGE REFERENCE UNITS LAB L9000.9990 Normal BLD GAS TYPE ART LAB L9001.1000 Normal SITE L Radial LAB L9001.1010 Normal LXE TEST POS LAB L9001.1050 O2 Normal Delivery [...] ISTAT 94 Performed By: #### L9000.0800 #### [facility] Point of Care [address] [place] [address] BEDSIDE GLUCOSE Collected: 03/01/2018 Status: F Source: CHRISTOPHER 11:06 PM [facility] REPOSITORY TYPE CODE TESTS RESULT OUT OF REFERENCE UNITS RANGE LAB L501.080 70-110 mg/dL High BEDSIDE GLU 136 Result Comment: Dr Guadarrama Followed MANAGEMENT OF PATIENT CARE PER NURSING PROTOCOL Performed By: #### L501.080 #### [facility] Point of Care [address] [place] [address] BLOOD GASES BY CPS Collected: 03/01/2018 Status: F Source: CHRISTOPHER 7:39 PM [facility] REPOSITORY TYPE CODE TESTS RESULT OUT OF [...] ISTAT 95 Performed By: #### L9000.0800 #### [facility] Point of Care [address] [facility] [place] [address] HISTORY AND PHYSICAL Observed: 03/01/2018 Status: F Source: ANTONITO EXAM 5:22 PM [facility] REPOSITORY [facility] Medical Records Department [address] [place] [address] History and Physical 03/01/18 1449 MR#: [id number] Acct: [id number] Name: MICHAEL GARCIA Rose Rep #: [id number] : 1945 72 From: Jen Rosales MD PCP: Mat Duffy MD Status: ADM IN Y Location: [place] [address] Problem List (1) Altered mental status, unspecified [...] Updated 01/22/18 @ 10:02 by Viviana Childers BUTTER PRODUCTION SUPERVISOR-C) ESRD (end stage renal disease) on dialysis [...] Surgical History: cholecystectomy, rotator cuff repair, - REEL TENDER History: No pertinent REEL TENDER history Lives: Spouse/ Significant Other Smoking Status: [...] Updated 01/22/18 @ 10:02 by Viviana Childers BUTTER PRODUCTION SUPERVISOR-C) Acute hypercapnic respiratory failure (Acute) Lethargy (Acute) [...] prophylaxis: PPI This note was generated with [employer] dictation software. It may contain incorrect words, spelling, and punctuation that were not noted in checking the note before signing. Code Visit Inpatient E AND M: 12022 Init Hosp L3 03/01/18 1722 <Electronically signed by Jen Rosales MD> Date Jen Rosales MD Cosigner Signature: Date (if applicable) CC: Jen Rosales MD; Mat Duffy MD Signed EMERGENCY DEPARTMENT Observed: 03/01/2018 Status: F Source: ANTONITO SUMMARY 4:35 PM [facility] REPOSITORY [facility] Medical Records Department [address] [place] [address] Emergency Department Summary 03/01/18 0940 MR#: [id number] Acct: [id number] Name: MICHAEL GARCIA Rep #: [id number] : 1945 72 From: Severiano Nino MD PCP: Mat Duffy MD Status: ADM IN History of Present Illness Chief Complaint: Alt LOC Informant: Patient, Family, Stonework Supervisor Limited: Stupor Onset: Hours - 6-7 Context: [...] for ED Patient: Disposition: Acute Care Hospital [facility] Chief Complaint: Alt LOC Diagnosis: Acute hypercapnic respiratory failure, Lethargy Referrals: Mat Duffy MD [Primary Care Provider] - What to do if you have Problems For any increased pain, shortness of breath, bleeding, nausea or vomiting, chest pain, or any unexpected problems, contact your Primary Care Provider. Call [facility] ([phone]) or report to the closest Emergency Room. Call 911 if necessary. 03/01/18 1635 <Electronically signed by Severiano Nino MD> Date Severiano Nino MD Cosigner Signature (If Indicated): Date CC: Mat Duffy MD BEDSIDE GLUCOSE Collected: 03/01/2018 Status: F Source: ANTONITO 4:23 PM [facility] REPOSITORY TYPE CODE TESTS RESULT OUT OF REFERENCE UNITS RANGE LAB L501.080 70-110 mg/dL High BEDSIDE GLU 192 Result Comment: MANAGEMENT OF PATIENT CARE PER NURSING PROTOCOL Performed By: #### L501.080 #### [facility] [place], [place] [address] TROPONIN-I Collected: 03/01/2018 Status: F Source: ANTONITO 4:15 PM [facility] REPOSITORY Order Comment: 'TROP' Serial specimen #1, #2 or #3: 2 TYPE CODE TESTS RESULT OUT OF RANGE REFERENCE UNITS LAB L501.4010 <0.045 ng/mL Normal < 0.015 TROPONIN-I Result Comment: TROPONIN-I EXPECTED VALUES <0.045 Negative 0.045 - 0.590 Consistent with Cardiac Damage > OR = 0.600 Critical Value Not every elevated troponin is indicative of NJ. These values should be used with clinical judgement in examining the patient's clinical picture for diagnosis. To establish a diagnosis of NJ versus myocardial injury, there must be a demonstrated rise and/or fall in the troponin values, in addition to ischemic symptoms, EKG changes, new regional wall motion abnormality, and/or angiographical evidence. PLEASE NOTE: REFERENCE RANGES EDITED 18 Performed By: #### L501.4010 #### [facility] [address] [place], [address] MAGNESIUM Collected: 03/01/2018 Status: F Source: CHRISTOPHER 4:15 PM [facility] REPOSITORY TYPE CODE TESTS RESULT OUT OF RANGE REFERENCE UNITS LAB L501.5200 1.6-2.6 mg/dL Normal MG 1.8 Performed By: #### L501.5200 #### [facility] [address] [place], [address] URINE DRUG SCREEN Collected: 03/01/2018 Status: F Source: CHRISTOPHER (VISTA) 3:43 PM [facility] REPOSITORY TYPE CODE TESTS RESULT OUT OF [...] Normal NEGATIVE Performed By: #### L505.5000 #### [facility] [address] [place], [address] BNP,B-TYPE NATRIURETIC Collected: 03/01/2018 Status: F Source: CHRISTOPHER PEPTIDE 3:40 PM [facility] REPOSITORY Order Comment: Comments: add on to blood draw from ED TYPE CODE TESTS RESULT OUT OF RANGE REFERENCE UNITS LAB L503.6620 0-100 pg/mL High B-TYPE 475.1 JUAN PABLO PEP Performed By: #### L503.6620 #### [facility] [address] [facility] [place], [address] URINALYSIS, COMPLETE Collected: 03/01/2018 Status: F Source: CHRISTOPHER 12:00 PM [facility] REPOSITORY Order Comment: Order Date: 03/01/18 How [...] 0-5 SEEN Performed By: #### L400.0001 #### [facility] [address] [place], [address] BLOOD GASES BY CPS Collected: 03/01/2018 Status: F Source: ANTONITO 10:10 AM [facility] REPOSITORY TYPE CODE TESTS RESULT OUT OF [...] ISTAT 93 Performed By: #### L9000.0800 #### [facility] Point of Care [address] [place] [address] CBC W/DIFF, AUTOMATED Collected: 03/01/2018 Status: F Source: ANTONITO 9:40 AM [facility] REPOSITORY TYPE CODE TESTS RESULT OUT OF [...] Lymph 0.88 Performed By: #### L100.0100 #### [facility] [address] [facility] [place], [address] CHEST 1 VIEW Observed: 03/01/2018 Status: F Source: CHRISTOPHER (PORTABLE) 9:40 AM [facility] REPOSITORY [facility] Imaging Services [address] [place] [address] Chest 1 View (Portable) MR#: [id number] Acct: [id number] Name: MICHAEL GARCIA Rep #: [id number] : 1945 F 72 From: Javad Jalloh MD PCP: Mat Duffy MD Status: PRE ER Study: Chest 1 View (Portable) Date of Exam: 03/01/18 Exam# [id number] Ordering Dr: Severiano Nino MD STUDY: X-RAY [...] CC: SEVERIANO NINO MD; Mat Duffy MD Gore Seamer: Signed BASIC METABOLIC Collected: 03/01/2018 Status: F Source: CHRISTOPHER PROFILE (BMP) 9:40 AM [facility] REPOSITORY TYPE CODE TESTS RESULT OUT OF [...] 9 Performed By: #### L500.2500, L501.4010 #### [facility] [address] [place], [address] TROPONIN-I Collected: 03/01/2018 Status: F Source: ANTONITO 9:40 AM [facility] REPOSITORY TYPE CODE TESTS RESULT OUT OF RANGE REFERENCE UNITS LAB L501.4010 <0.045 ng/mL Normal < 0.015 TROPONIN-I Result Comment: TROPONIN-I EXPECTED VALUES <0.045 Negative 0.045 - 0.590 Consistent with Cardiac Damage > OR = 0.600 Critical Value Not every elevated troponin is indicative of NJ. These values should be used with clinical judgement in examining the patient's clinical picture for diagnosis. To establish a diagnosis of NJ versus myocardial injury, there must be a demonstrated rise and/or fall in the troponin values, in addition to ischemic symptoms, EKG changes, new regional wall motion abnormality, and/or angiographical evidence. PLEASE NOTE: REFERENCE RANGES EDITED 18 Performed By: #### L500.2500, L501.4010 #### [facility] [address] [place], [address] BRAIN/HEAD WITHOUT Observed: 03/01/2018 Status: F Source: ANTON[place]O CONTRAST 9:40 AM [facility] REPOSITORY [facility] Imaging Services [address] [facility] [place] [address] Brain/Head without Contrast MR#: [id number] Acct: [id number] Name: GARCIAMICHAEL Rep #: [id number] : 1945 F 72 From: Javad Jalloh MD PCP: Mat Duffy MD Status: REG ER Study: Brain/Head without Contrast Date of Exam: 03/01/18 Exam# [id number] Ordering Dr: Severiano Nino MD STUDY: CT [...] CC: SEVERIANO NINO MD; Mat Duffy MD Gore Seamer: Signed VENOUS DUPLEX UPPER Observed: 02/26/2018 Status: F Source: AN[place]O EXTREMITY 5:52 PM [facility] REPOSITORY [facility] Cardiovascular Services [address] [place] [address] Saphenous Vein Mapping, Bilat 02/26/18 1329 MR#: [id number] Acct: [id number] Name: MICHAEL GARCIA Rose Rep #: [id number] : 1945 72 From: Anoop Angeles MD [...] Date Dictated: 02/26/18 1329 Date Transcribed: 02/26/181751 Gore Seamer: Signed CNPTOUTREACH Observed: 02/17/2018 Status: COMPLETED Source: WONG 12:00 AM [facility] REPOSITORY Patient Outreach (FAMPST) MICHAEL GARCIA ([id number]) 1945 F BLD Date Time Provider Department 02/17/18 MAT DUFFY FAMPST During your visit today, we recorded the following information about you: Allergies As of Date: 02/17/2018 (No Known Allergies) Date Reviewed: 02/11/2018 Reviewed by: Mya Willams LPN - Fully Assessed Visit Diagnosis:Medication management [Z79.899] Order(s):LIPID PANEL BASIC [SQLIPB] Order #: [id number] FUTURE Prescriptions as of 02/17/2018 Sig: FUROSEMIDE [...] 07/17/18 PROGRESS Observed: 02/11/2018 Status: COMPLETED Source: ASHIPPUN 5:15 PM [facility] REPOSITORY HNO ID: [id number] Author: Mat Duffy Service: (none) Author Type: Physician Type: Progress Notes Filed: 02/12/2018 12:31 AM Note Text: This note was created using Internet Gold - Golden Linesriter. Subjective Michael Garcia is a 72 year [...] Type 2 Diabetes Mellitus With Renal Manifestations ([facility]) Essential Hypertension With Goal Blood Pressure Less Than 130/85 Hyperlipidemia Legally Blind Diabetic Peripheral Neuropathy Associated With Type 2 Diabetes Mellitus ([facility]) Primary 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 ([facility]) Ckd (Chronic Kidney Disease) Stage V Requiring Chronic Dialysis ([facility]) Hypoxemia Chronic Diastolic Chf (Congestive Heart Failure) ([facility]) Anemia in Stage 3 Chronic Kidney Disease [...] MD CNOV Observed: 02/11/2018 Status: COMPLETED Source: ASHIPPUN 4:40 PM [facility] REPOSITORY Office Visit (INTMWS) MICHAEL GARCIA ([id number]) 1945 F BLD Date Time Provider Department [...] Type 2 Diabetes Mellitus With Renal Manifestations ([facility]) Essential Hypertension With Goal Blood Pressure Less Than 130/85 Hyperlipidemia Legally Blind Diabetic Peripheral Neuropathy Associated With Type 2 Diabetes Mellitus ([facility]) Primary 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 ([facility]) Ckd (Chronic Kidney Disease) Stage V Requiring Chronic Dialysis ([facility]) Hypoxemia Chronic Diastolic Chf (Congestive Heart Failure) ([facility]) Anemia in Stage 3 Chronic Kidney Disease [...] LPN - Fully Assessed Reason for Visit: [facility] follow-up [Other] Cmt: Discharged 01/23/2018 Reason For Visit History Recorded Primary Visit Diagnosis:Chronic diastolic CHF (congestive heart failure) ([facility]) [I50.32] Other Visit Diagnoses:Hypoxemia [R09.02] CKD (chronic kidney disease) stage V requiring chronic dialysis ([facility]) [N18.6, Z99.2] Paroxysmal atrial fibrillation ([facility]) [I48.0] Diabetic peripheral neuropathy associated with type [...] LEAD ELECTROCARDIOGRAM Observed: 01/25/2018 Status: F Source: ANTONITO 8:59 PM [facility] REPOSITORY [facility] [place] [address] 12 Lead EKG 01/22/18 0532 MR#: [id number] Acct: [id number] Name: MICHAEL GARCIA Rep #: [id number] : 1945 72 From: Reinier Lang MD Attending Dr: Fahad Sesay Status: DIS IN Ordering Dr: Fahad Sesay MD Date: 01/22/18 Location: [facility] Sex: F C Admitted: 01/19/18 Test Reason [...] wave progression Confirmed by REINIER LANG MD ([id number]), photograph editor HONORIO SHEFFIELD ([id number]) on 01/23/2018 1:25:54 PM Referred By: MATEO Confirmed By:REINIER LANG MD 01/23/18 1325 Date Reinier Lang MD CC: Fahad Sesay; Mat Duffy MD Signed 12 LEAD ELECTROCARDIOGRAM Observed: 01/25/2018 Status: F Source: ANTONITO 8:57 PM [facility] REPOSITORY [facility] Cardiovascular Services [address] [place] [address] 12 Lead EKG 01/19/1818 MR#: [id number] Acct: [id number] Name: JOSEMICHAEL Rose Rep #: [id number] : 1945 72 From: Ortiz Markham MD Attending Dr: Fahad Sesay Status: DIS IN Ordering Dr: Rashawn Sotelo MD Date: 01/19/18 Location: [facility] Sex: F C Admitted: 01/19/18 Test Reason : SOB Blood Pressure : / mmHG Vent. Rate : 078 BPM Atrial Rate : 078 BPM P-R Int : 178 ms QRS Dur : 102 ms QT Int : 420 ms P-R-T Axes : 047 -32 055 degrees QTc Int : 478 ms Normal sinus rhythm Indeterminate axis Abnormal ECG Confirmed by ORTIZ MARKHAM ([id number]), photograph editor HONORIO SHEFFIELD (56) on 01/22/2018 2:45:40 PM Referred By: LOIS Confirmed By:ORTIZ MARKHAM 01/22/18 1445 Date Ortiz Markham MD CC: Fahad Sesay; Rashawn Sotelo MD; Mat Duffy MD Signed DISCHARGE SUMMARY Observed: 01/23/2018 Status: F Source: CHRISTOPHER 11:58 AM [facility] REPOSITORY [facility] Medical Records Department [address] [place] [address] Discharge Summary 01/23/18 1150 MR#: [id number] Acct: [id number] Name: MICHAEL GARCIA Rep #: [id number] : 1945 72 From: Fahad Sesay MD PCP: Mat Duffy MD Status: DIS IN Y Location: [place] [address] Discharge Date and Diagnosis Date of Admission: 01/19/18 Date of Discharge: 01/22/18 - Primary Discharge Diagnosis #1 acute pulmonary edema. #2 acute on chronic hypoxic and hypercapnic respiratory failure. #3 malfunctioning left internal jugular tunneled dialysis catheter, placement of right internal jugular dialysis catheter. - Secondary Discharge Diagnosis Chronic Problems (Last Updated 01/22/18 @ 10:02 by Viviana Childers, [employer]TER PRODUCTION SUPERVISOR-C) ESRD (end stage renal disease) on dialysis [...] Brett Arcos MD at 15:06 EDT Tel [phone], Service support , Dr. Jones, nephrology. Dr. [...] baseline at home. During the dialysis, that nuclear worker technician noticed that the left IJ tunneled [...] applicable Code Visit Inpatient E AND M: 09908 Disch Hosp 01/23/18 1158 <Electronically signed by Fahad Sesay MD> Date Fahad Sesay MD Cosigner Signature (if applicable): Date CC: Fahad Sesay; Domingo Jenkins M.D.; Mat Duffy MD Signed BEDSIDE GLUCOSE Collected: 01/22/2018 Status: F Source: CHRISTOPHER 4:56 PM [facility] REPOSITORY TYPE CODE TESTS RESULT OUT OF RANGE REFERENCE UNITS LAB L501.080 70-110 mg/dL Normal BEDSIDE GLU 79 Result Comment: MANAGEMENT OF PATIENT CARE PER NURSING PROTOCOL Performed By: #### L501.080 #### [facility] Point of Care [address] [place] [address] DISCHARGE INSTRUCTION Observed: 01/22/2018 Status: F Source: ANTONITO 3:11 PM [facility] REPOSITORY [facility] Medical Records Department [address] [place] [address] Instructions for Home/Discharge Instructions 01/22/18 1508 MR#: [id number] Acct: [id number] Name: MICHAEL GARCIA Rose Rep #: [id number] : 1945 72 From: Fahad Sesay MD PCP: Mat Duffy MD Status: ADM IN - Discharge Diagnoses Current Active Problems: Current Active and Chronic Problems (Last Updated 01/22/18 @ 10:02 by Viviana Childers, BUTTER PRODUCTION SUPERVISOR-C) Acute on chronic respiratory failure with hypoxia [...] Up With: Juan Daniel Raymundo MD 01/22/18 8358 <Electronically signed by Fahad Sesay MD> Date Fahad Sesay MD CC: Rocael Valencia MD; Domingo Jenkins M.D.; Anoop Angeles MD; Mat Duffy MD HIV - [facility] Collected: 01/22/2018 Status: F Source: CHRISTOPHER 2:23 PM [facility] REPOSITORY TYPE CODE TESTS RESULT OUT OF RANGE REFERENCE UNITS LAB L3890.6005 Nonreactive Normal HIV - [facility] Non-Reactive Performed By: #### L3890.6005 #### [facility] [address] [place], [address] HEPATITIS B SURFACE Collected: 01/22/2018 Status: F Source: [place] AG 2:23 PM [facility] REPOSITORY TYPE CODE TESTS RESULT OUT OF RANGE REFERENCE UNITS LAB L3100.0400 Negative Normal HB Negative SURF AG Performed By: #### L3100.0390, L3100.0460, L3100.0528, L3100.0625 #### [facility] (refer to report for specific site) refer to report for address and phone number HEPATITIS B CORE AB Collected: 01/22/2018 Status: F Source: [place] TOTAL 2:23 PM [facility] REPOSITORY TYPE CODE TESTS RESULT OUT OF RANGE REFERENCE UNITS LAB L3100.0460 Negative Normal HEP B Negative CORE,TOT Result Comment: Performed at: [facility] [address] [id number] Coffee Blender: Ayad Joy PhD, Phone: [phone] Performed By: #### L3100.0390, L3100.0460, L3100.0528, L3100.0625 #### [facility] (refer to report for specific site) refer to report for address and phone number HEP B SURFACE Collected: 01/22/2018 Status: F Source: CHRISTOPHER ANTIBODIES 2:23 PM [facility] REPOSITORY TYPE CODE TESTS RESULT OUT OF [...] C ANTIBODIES Collected: 01/22/2018 Status: F Source: [place]O 2:23 PM [facility] REPOSITORY TYPE CODE TESTS RESULT OUT OF RANGE REFERENCE UNITS LAB L3100.0650 0.0-0.9 s/co ratio Normal HEP C AB 0.1 Result Comment: Negative: < 0.8 Indeterminate: 0.8 - 0.9 Positive: > 0.9 The CDC recommends that a positive HCV antibody result be followed up with a HCV Nucleic Acid Amplification test (731290). Performed By: #### L3100.0390, L3100.0460, L3100.0528, L3100.0625 #### [facility] (refer to report for specific site) refer to report for address and phone number OPERATIVE REPORT Observed: 01/22/2018 Status: F Source: [place] 1:33 PM [facility] REPOSITORY [facility] Medical Records Department [address] [place] [address] Operative Report 01/22/18 1327 MR#: [id number] Acct: [id number] Name: MICHAEL GARCIA Rep #: [id number] : 1945 72 From: Anoop Angeles MD PCP: Mat Duffy MD Status: ADM IN Location: [place] [address] Problem List (1) Problem with dialysis access Status: Acute Qualifiers: Encounter type: initial encounter Qualified Code(s): T82.898A - Other specified complication of vascular prosthetic devices, implants and grafts, initial encounter Report of Operation Date of Procedure: 01/22/18 Pre-Operative Diagnosis: Malfunction left internal jugular tunneled dialysis catheters Post-Operative Diagnosis: Same Surgery/Procedure Performed:: Right internal jugular 19 cm pre-curved palindrome catheter placement. Reference number [id number] lot #[id number]. Removal left internal tunneled dialysis catheters Description [...] Anesthesia:: Local MAC Anesthesiologist: Carmen Montemayor 01/22/18 0021 <Electronically signed by Anoop Angeles MD> Date Anoop Angeles MD CC: Rocael Valecnia MD; Domingo Jenkins M.D.; Anoop Angeles MD; Mat Duffy MD Signed CHEST 1 VIEW Observed: 01/22/2018 Status: F Source: CHRISTOPHER (PORTABLE) 12:46 PM [facility] REPOSITORY [facility] Imaging Services [address] [place] [address] Chest 1 View (Portable) MR#: [id number] Acct: [id number] Name: MICHAEL GARCIA Rep #: [id number] : 1945 F 72 From: Brett Arcos MD PCP: Mat Duffy MD Status: ADM IN Study: Chest 1 View (Portable) Date of Exam: 01/22/18 Exam# [id number] Ordering Dr: Anoop Angeles MD STUDY: X-RAY [...] Brett Arcos MD at 15:06 EDT Tel [phone], Service support , CC: Anoop Angeles MD; Mat Duffy MD Gore Seamer: Signed BEDSIDE GLUCOSE Collected: 01/22/2018 Status: F Source: CHRISTOPHER 11:24 AM [facility] REPOSITORY TYPE CODE TESTS RESULT OUT OF REFERENCE UNITS RANGE LAB L501.080 70-110 mg/dL High BEDSIDE GLU 269 Result Comment: MANAGEMENT OF PATIENT CARE PER NURSING PROTOCOL Performed By: #### L501.080 #### [facility] Point of Care [address] [facility] [address] [place] [address] BEDSIDE GLUCOSE Collected: 01/22/2018 Status: F Source: CHRISTOPHER 6:51 AM [facility] REPOSITORY TYPE CODE TESTS RESULT OUT OF REFERENCE UNITS RANGE LAB L501.080 70-110 mg/dL High BEDSIDE GLU 195 Result Comment: MANAGEMENT OF PATIENT CARE PER NURSING PROTOCOL Performed By: #### L501.080 #### [facility] Laboratory Point of Care [address] [place] [address] CONSULTATION Observed: 01/22/2018 Status: F Source: AN[place]ITO 5:55 AM [facility] Medical Records Department [address] [place] [address] Consultation 01/21/18 1832 MR#: [id number] Acct: [id number] Name: MICHAEL GARCIA Rep #: [id number] : 1945 72 From: Anoop Angeles MD PCP: Mat Duffy MD Status: ADM IN Location: [place] [address] Problem List (1) Problem with dialysis access Status: Acute Qualifiers: Encounter type: initial encounter Qualified Code(s): T82.898A - Other specified complication of vascular prosthetic devices, implants and grafts, initial encounter Reason for Consult Date of Consultation: 01/21/18 History of Present Illness: The patient is a 72 year old F [who was admitted to the [facility] on January 19, 2018 with shortness of breath. On December 08, 2017 after being consulted I placed a left internal jugular 23 cm pre-curved tunneled palindrome catheter for hemodialysis. At that time the patient had previously had a right internal jugular temporary catheters placed in the intensive care unit. According to the patient she was referred by Dr. Romeo to [facility] changed over to new catheters. Patient apparently [...] MD; Domingo Jenkins M.D.; Anoop Angeles MD; aMt Duffy MD Signed CBC W/DIFF, AUTOMATED Collected: 01/22/2018 Status: F Source: CHRISTOPHER 5:50 AM [facility] REPOSITORY TYPE CODE TESTS RESULT OUT OF [...] MACROCYTE 2+ Performed By: #### L100.0100 #### [facility] [address] [facility] [place], [address] PROTHROMBIN TIME W/INR Collected: 01/22/2018 Status: F Source: ANTONITO 5:50 AM [facility] REPOSITORY TYPE CODE TESTS RESULT OUT OF RANGE REFERENCE UNITS LAB L300.4150 11.7-14.9 SECONDS Normal PROTIME 14.5 LAB L300.4200 Normal INR 1.1 Performed By: #### L300.3900, L300.4310 #### [facility] [address] [facility] [place], [address] PARTIAL THROMBOPLAST Collected: 01/22/2018 Status: F Source: [place] TIME 5:50 AM [facility] REPOSITORY TYPE CODE TESTS RESULT OUT OF REFERENCE UNITS RANGE LAB L300.4310 24.1-36.2 Seconds High PTT 41.6 Performed By: #### L300.3900, L300.4310 #### [facility] [address] [facility] [place], [address] BASIC METABOLIC Collected: 01/22/2018 Status: F Source: CHRISTOPHER PROFILE (BMP) 5:50 AM [facility] REPOSITORY TYPE CODE TESTS RESULT OUT OF [...] GAP 5 Performed By: #### L500.2500 #### [facility] [address] [facility] [place], [address] HEMOGLOBIN A1C Collected: 01/22/2018 Status: F Source: CHRISTOPHER 5:50 AM [facility] REPOSITORY TYPE CODE TESTS RESULT OUT OF RANGE REFERENCE UNITS LAB L501.9985 4.2-6.3 % High HGB A1C 6.4 Performed By: #### L501.9985 #### [facility] [address] [facility] [place], [address] BEDSIDE GLUCOSE Collected: 01/21/2018 Status: F Source: CHRISTOPHER 10:10 PM [facility] REPOSITORY TYPE CODE TESTS RESULT OUT OF REFERENCE UNITS RANGE LAB L501.080 70-110 mg/dL High BEDSIDE GLU 356 Result Comment: MANAGEMENT OF PATIENT CARE PER NURSING PROTOCOL Performed By: #### L501.080 #### [facility] Point of Care [address] [facility] [place] [address] BEDSIDE GLUCOSE Collected: 01/21/2018 Status: F Source: CHRISTOPHER 5:32 PM [facility] REPOSITORY TYPE CODE TESTS RESULT OUT OF REFERENCE UNITS RANGE LAB L501.080 70-110 mg/dL High BEDSIDE GLU 148 Result Comment: MANAGEMENT OF PATIENT CARE PER NURSING PROTOCOL Performed By: #### L501.080 #### [facility] Point of Care [address] [place], [place] [address] BEDSIDE GLUCOSE Collected: 01/21/2018 Status: F Source: CHRISTOPHER 12:03 PM [facility] REPOSITORY TYPE CODE TESTS RESULT OUT OF REFERENCE UNITS RANGE LAB L501.080 70-110 mg/dL High BEDSIDE GLU 163 Result Comment: MANAGEMENT OF PATIENT CARE PER NURSING PROTOCOL Performed By: #### L501.080 #### [facility] Point of Care [address] [place] [address] DISCHARGE INSTRUCTION Observed: 01/21/2018 Status: F Source: ANTONITO 10:12 AM [facility] Medical Records Department [address] [facility] [place] [address] Instructions for Home/Discharge Instructions 01/21/18 1011 MR#: [id number] Acct: [id number] Name: JOSEMICHAEL Rose Rep #: [id number] : 1945 72 From: Fahad Sesay MD PCP: Mat Duffy MD Status: ADM IN - Discharge Diagnoses Current Active Problems: Current Active and Chronic Problems (Last Updated 01/20/18 @ 11:18 by Fahad Sesay MD) ESRD (end stage renal disease) on dialysis (Chronic) You will use the following diet at home:: Calorie/Carbohydrate Controlled (specify 1200, 1400, etc) - 1800 travis, Cardiac, Renal (restricted protein/sodium) Your food should [...] 01/21/2018 Status: F Source: CHRISTOPHER 6:56 AM [facility] REPOSITORY TYPE CODE TESTS RESULT OUT OF REFERENCE UNITS RANGE LAB L501.080 70-110 mg/dL High BEDSIDE GLU 172 Result Comment: MANAGEMENT OF PATIENT CARE PER NURSING PROTOCOL Performed By: #### L501.080 #### [facility] Laboratory Point of Care [address] [place] [address] CBC W/DIFF, AUTOMATED Collected: 01/21/2018 Status: F Source: CHRISTOPHER 6:10 AM [facility] REPOSITORY TYPE CODE TESTS RESULT OUT OF [...] Lymph 0.97 Performed By: #### L100.0100 #### [facility] [address] [place], [place], [address] BASIC METABOLIC Collected: 01/21/2018 Status: F Source: CHRISTOPHER PROFILE (BMP) 6:10 AM [facility] REPOSITORY TYPE CODE TESTS RESULT OUT OF [...] GAP 9 Performed By: #### L500.2500 #### [facility] [place], [place], [address] BEDSIDE GLUCOSE Collected: 01/20/2018 Status: F Source: CHRISTOPHER 10:43 PM [facility] REPOSITORY TYPE CODE TESTS RESULT OUT OF REFERENCE UNITS RANGE LAB L501.080 70-110 mg/dL High BEDSIDE GLU 421 Result Comment: MANAGEMENT OF PATIENT CARE PER NURSING PROTOCOL Performed By: #### L501.080 #### [facility] Laboratory Point of Care [address] [facility] [place] [address] BEDSIDE GLUCOSE Collected: 01/20/2018 Status: F Source: ANTONITO 4:06 PM [facility] REPOSITORY TYPE CODE TESTS RESULT OUT OF REFERENCE UNITS RANGE LAB L501.080 70-110 mg/dL High BEDSIDE GLU 400 Result Comment: MANAGEMENT OF PATIENT CARE PER NURSING PROTOCOL Performed By: #### L501.080 #### [facility] Laboratory Point of Care [address] [place] [address] BEDSIDE GLUCOSE Collected: 01/20/2018 Status: F Source: ANTONITO 11:21 AM [facility] REPOSITORY TYPE CODE TESTS RESULT OUT OF REFERENCE UNITS RANGE LAB L501.080 70-110 mg/dL High alert BEDSIDE GLU 478 Result Comment: Insulin Given MANAGEMENT OF PATIENT CARE PER NURSING PROTOCOL Performed By: #### L501.080 #### [facility] Point of Care [address] [place] [address] CONSULTATION Observed: 01/20/2018 Status: F Source: ANTONITO 9:54 AM [facility] REPOSITORY [facility] Medical Records Department [address] [place] [address] Consultation 01/20/18 0943 MR#: [id number] Acct: [id number] Name: MICHAEL GARCIA Rep #: [id number] : 1945 72 From: Nidia Jones MD [...] Patient was sent from HD unit to [place] ED for SOB and tachypnea. chest xray [...] Amiodarone HCl (Cordarone) 200 mg PO DAILY COUNTS INCLUDE 234 BEDS AT THE [facility] Last Admin: 01/20/18 08:28 Dose: 200 mg Aspirin (Ecotrin) 325 mg PO DAILY@0800 COUNTS INCLUDE 234 BEDS AT THE [facility] Last Admin: 01/20/18 08:30 Dose: 325 mg Atorvastatin Calcium (Lipitor) 40 mg PO QHS COUNTS INCLUDE 234 BEDS AT THE [facility] Last Admin: 01/20/18 02:28 Dose: 40 mg Chlorhexidine Gluconate () 1 each TOPICAL DAILY COUNTS INCLUDE 234 BEDS AT THE [facility] Last Admin: 01/20/18 07:10 Dose: 1 each Clonidine (Catapres) 0.1 mg PO TID COUNTS INCLUDE 234 BEDS AT THE [facility] Last Admin: 01/20/18 07:10 Dose: 0.1 mg Ergocalciferol (Vitamin D) 50,000 unit PO QMONTH COUNTS INCLUDE 234 BEDS AT THE [facility] Furosemide (Lasix) 60 mg PO BID@1000,1800 COUNTS INCLUDE 234 BEDS AT THE [facility] Last Admin: 01/20/18 08:22 Dose: 60 mg Gabapentin (Neurontin) 300 mg PO QHS COUNTS INCLUDE 234 BEDS AT THE [facility] Last Admin: 01/20/18 02:24 Dose: 300 mg Heparin Sodium (Porcine) (Heparin Na) 5,000 unit SC BID COUNTS INCLUDE 234 BEDS AT THE [facility] Last Admin: 01/20/18 08:23 Dose: 5,000 u Sodium Chloride () 250 mls @ 15 mls/hr IV .[id number] PRN PRN Reason: SALINE FLUSH Sodium Chloride () 250 mls @ 15 mls/hr IV .[id number] PRN PRN Reason: SALINE FLUSH Insulin Aspart (Novolog Flexpen (Bkc)) 0 units SC ACHS COUNTS INCLUDE 234 BEDS AT THE [facility] PRN Reason: Protocol Last Admin: 01/20/18 08:20 Dose: 4 u Insulin Detemir (Levemir (Bkc)) 39 units SC BID COUNTS INCLUDE 234 BEDS AT THE [facility] Last Admin: 01/20/18 08:29 Dose: 39 units Magnesium Hydroxide (Milk Of Magnesia) 30 ml PO DAILY PRN PRN PRN Reason: Constipation Metoprolol Succinate (Toprol Xl (Beta Stephania)) 25 mg PO DAILY COUNTS INCLUDE 234 BEDS AT THE [facility] Last Admin: 01/20/18 08:36 Dose: 25 mg Pantoprazole Sodium (Protonix) 40 mg PO DAILY COUNTS INCLUDE 234 BEDS AT THE [facility] Last Admin: 01/20/18 08:28 Dose: 40 mg Polysaccharide Iron Complex (Ferrex 150) [facility] Sodium Chloride () 5 - 30 ml IV UD PRN PRN Reason: SALINE FLUSH - Past Medical History Past Medical History (Chronic Problems): Chronic Problems (Last Reviewed 01/01/18 @ 18:03 by Josi Hickman, BUTTER PRODUCTION SUPERVISOR-C) Rheumatic mitral insufficiency (Chronic) Valvular heart disease [...] Will continue to follow Nidia Jones MD [phone] 01/20/18 0954 <Electronically signed by Nidia Jones MD> Date Nidia Jones MD Cosigner Signature (if applicable): Date CC: Rocael Valencia MD; Domingo Jenkins M.D.; Mat Duffy MD Signed CONSULTATION Observed: 01/20/2018 Status: F Source: ANTONITO 6:40 AM [facility] REPOSITORY [facility] Medical Records Department [address] [place] [address] Consultation 01/19/18 1554 MR#: [id number] Acct: [id number] Name: MICHAEL GARCIA Rep #: [id number] : 1945 72 From: Rocael Valencia MD [...] from the outpatient practice, who presented to [facility] on 01/19/2018 secondary to progressive shortness of [...] F Source: CHRISTOPHER PROFILE (BMP) 6:20 AM [facility] REPOSITORY Order Comment: REDRAW. PREVIOUS SPECIMEN REJECTED [...] GAP 6 Performed By: #### L500.2500 #### [facility] Laboratory [address] [place], [address] HEP B SURFACE Collected: 01/20/2018 Status: F Source: ANTONITO ANTIBODIES 6:20 AM [facility] REPOSITORY Order Comment: REDRAW. PREVIOUS SPECIMEN REJECTED DUE TO HEMOLYZED >4+. 01/20/18 0609 Natalia Barragan. TYPE CODE TESTS RESULT OUT OF RANGE REFERENCE UNITS LAB L3100.0528 . Normal Hep B Non Reactive Suzanne AB Result Comment: Non Reactive: Inconsistent with immunity, less than 10 mIU/mL Reactive: Consistent with immunity, greater than 9.9 mIU/mL Performed at: - [facility] [address] [id number] Coffee Blender: Ayad Joy PhD, Phone: [phone] Performed By: #### L3100.0528 #### [facility] (refer to report for specific site) refer to report for address and phone number CBC W/DIFF, AUTOMATED Collected: 01/20/2018 Status: F Source: CHRISTOPHER 5:10 AM [facility] REPOSITORY TYPE CODE TESTS RESULT OUT OF [...] LYMPHOPENIA NOTED Performed By: #### L100.0100 #### [facility] [address] [place], [place], [address] BEDSIDE GLUCOSE Collected: 01/20/2018 Status: F Source: ANTONITO 2:21 AM [facility] REPOSITORY TYPE CODE TESTS RESULT OUT OF REFERENCE UNITS RANGE LAB L501.080 70-110 mg/dL High BEDSIDE GLU 359 Result Comment: MANAGEMENT OF PATIENT CARE PER NURSING PROTOCOL Performed By: #### L501.080 #### [facility] Laboratory Point of Care [address] [place] [address] M R STAPH AUREUS Collected: 01/19/2018 Status: F Source: CHRISTOPHER DNA BY PCR 6:15 PM [facility] REPOSITORY TYPE CODE TESTS RESULT OUT OF RANGE REFERENCE UNITS LAB L8200.1100 Negative Normal MRSA Negative RESULT Performed By: #### L8200.1000 #### [facility] [address] [place], [address] BLOOD GASES BY CPS Collected: 01/19/2018 Status: F Source: CHRISTOPHER 5:09 PM [facility] REPOSITORY TYPE CODE TESTS RESULT OUT OF [...] ISTAT 89 Performed By: #### L9000.0800 #### [facility] Laboratory Point of Care [address] [place] [address] EMERGENCY DEPARTMENT Observed: 01/19/2018 Status: F Source: CHRISTOPHER SUMMARY 5:00 PM [facility] REPOSITORY [facility] Medical Records Department [address] [place] [address] Emergency Department Summary 01/19/18 0829 MR#: [id number] Acct: [id number] Name: MICHAEL GARCIA Rep #: [id number] : 1945 72 From: Rashawn Sotelo MD [...] your Primary Care Provider. Call [facility] ([phone]) or report to the closest Emergency Room. Call 911 if necessary. 01/19/18 1700 <Electronically signed by Rashawn Sotelo MD> Date Rashawn Sotelo MD Cosigner Signature (If Indicated): Date CC: Mat Duffy MD BEDSIDE GLUCOSE Collected: 01/19/2018 Status: F Source: CHRISTOPHER 4:30 PM [facility] REPOSITORY TYPE CODE TESTS RESULT OUT OF REFERENCE UNITS RANGE LAB L501.080 70-110 mg/dL High BEDSIDE GLU 238 Result Comment: Dr Guadarrama Followed MANAGEMENT OF PATIENT CARE PER NURSING PROTOCOL Performed By: #### L501.080 #### [facility] Laboratory Point of Care [address] [facility] [place] [address] HISTORY AND PHYSICAL Observed: 01/19/2018 Status: F Source: CHRISTOPHER EXAM 4:01 PM [facility] REPOSITORY [facility] Medical Records Department [address] [place] [address] History and Physical 01/19/18 1441 MR#: [id number] Acct: [id number] Name: MICHAEL GARCIA Rep #: [id number] : 1945 72 From: Irene Wilson MD [...] she was sent to the emergency room. Concaving Machine Operator has been consulted for urgent hemodialysis today. [...] SCDs. Code Visit Inpatient E AND M: 46528 Init Hosp L3 01/19/18 1601 <Electronically signed by Irene Wilson MD> Date Irene Wilson MD Cosigner Signature: Date (if applicable) CC: Irene Wilson MD; Mat Duffy MD Signed Observed: 01/19/2018 Status: F Source: CHRISTOPHER INFLUENZA A+B (RAPID 3:17 PM [facility] TARAH) REPOSITORY FLU A/B Rapid Negative test results should be confirmed by culture. Order Rapid Viral Culture for Influenzae A+B ([id number]) if clinically indicated. Influenza Ag, Direct Presumptive NEGATIVE for Influenza A/B Antigen (See Note) Performed By: #### M101.0101 #### [facility] [address] [place], [address] BLOOD GASES BY CPS Collected: 01/19/2018 Status: F Source: CHRISTOPHER 12:56 PM [facility] REPOSITORY TYPE CODE TESTS RESULT OUT OF [...] ISTAT 86 Performed By: #### L9000.0800 #### [facility] Laboratory Point of Care [address] [place], [place] [address] CBC W/DIFF, AUTOMATED Collected: 01/19/2018 Status: F Source: CHRISTOPHER 8:45 AM [facility] REPOSITORY TYPE CODE TESTS RESULT OUT OF [...] LYMPHOPENIA NOTED. Performed By: #### L100.0100 #### [facility] [address] [place], [address] BASIC METABOLIC Collected: 01/19/2018 Status: F Source: CHRISTOPHER PROFILE (BMP) 8:45 AM [facility] REPOSITORY Order Comment: 'TROP' Serial specimen #1, [...] 6 Performed By: #### L500.2500, L501.4010 #### [facility] Laboratory [facility] [place], [address] TROPONIN-I Collected: 01/19/2018 Status: F Source: ANTONITO 8:45 AM [facility] REPOSITORY Order Comment: 'TROP' Serial specimen #1, #2, #3, or #4: 1 TYPE CODE TESTS RESULT OUT OF RANGE REFERENCE UNITS LAB L501.4010 <0.06 ng/mL Normal < 0.02 TROPONIN-I Result Comment: TROPONIN-I EXPECTED VALUES <0.05 NEGATIVE 0.06 - 0.59 AT RISK OF [place] > OR = 0.60 SUGGEST [place] Performed By: #### L500.2500, L501.4010 #### [facility] [address] [place], [address] CHEST 1 VIEW Observed: 01/19/2018 Status: F Source: ANTONITO (PORTABLE) 8:26 AM [facility] REPOSITORY [facility] Imaging Services [address] [place] [address] Chest 1 View (Portable) MR#: [id number] Acct: [id number] Name: MICHAEL GARCIA Rep #: [id number] : 1945 F 72 From: Regulo Tang MD PCP: Mat Duffy MD Status: REG ER Study: Chest 1 View (Portable) Date of Exam: 01/19/18 Exam# [id number] Ordering Dr: Rashawn Sotelo MD STUDY: X-RAY [...] CC: Rashawn Sotelo MD; Mat Duffy MD Gore Seamer: Signed TYPE AND SCREEN Collected: 01/07/2018 Status: F Source: ANTONITO 12:55 PM [facility] REPOSITORY Order Comment: PRETRANSFUSION HGB = 6.4 HCT = 19.2 PERFORMED AT [facility] CMV NEG?* N Give When? When Ready Irradiated? N Leukodepleted? Y Reason for Type AND Screen/Red Cells: ANEMIA TYPE CODE TESTS RESULT OUT OF RANGE REFERENCE UNITS LAB B10.0800 O Normal BLOOD TYPE GEL POSITIVE LAB B100.4000 Normal Antibody NEGATIVE Screen Performed By: #### B101.7450 #### [facility] [address] [place], [address] Collected: 01/07/2018 Status: F Source: ANTONITO 12:55 PM [facility] REPOSITORY TYPE CODE TESTS RESULT OUT OF REFERENCE UNITS RANGE LAB U100.0000 [id number] TRANSFUSED PRODUCT: T AND S with Crossmatch, Red Cells COUNT: 2 Performed By: #### U100.0000 #### [facility] - refer to report for specific site PROGRESS Observed: 01/05/2018 Status: COMPLETED Source: ASHIPPUN 2:32 PM [facility] REPOSITORY HNO ID: [id number] Author: Simin Villarreal Service: (none) Author Type: [...] with medications. Will seek help of and [facility] to find meds for [employer]. plan. Concerns: Unable to afford insulin ordered. Behaviorist plan for next outreach: Will follow up as needed Signature Simin Villarreal source inspector Screen Handler Internal Medicine [facility] January 05, 2018 CNPTOUTREACH Observed: 01/05/2018 Status: COMPLETED Source: ASHIPPUN 12:00 AM [facility] REPOSITORY Patient Outreach (INTMWS) MICHAEL GARCIA ([id number]) 1945 F BLD Date Time Provider Department 01/05/18 SIMIN AQUINOWS During your visit today, we recorded the following information about you: Simin Duarte RN 01/23/2018 3:17 PM Signed PRIMARY CARE COORDINATION FOLLOW-UP NOTE Provider Action/FYI Need help with Lantus and Novolog ordered. They have reached [facility] already. Patient identified by name and date of . YES Spoke to patient and spouse Summary: stating that insulin will cost $1000 since they are in [facility] already. Asking for help with medications. Will seek help of and [facility] to find meds for [employer]. plan. Concerns: Unable to afford insulin ordered. Behaviorist plan for next outreach: Will follow up as needed Signature Simin Villarreal RN Ambulatory Screen Handler Internal Medicine [facility] January 05, 2018 Allergies As of Date: 01/05/2018 (No Known Allergies) Date Reviewed: 12/23/2017 Reviewed by: Cindy Limon LPN - Fully Assessed Reason for Visit: Screen Handler Chronic Care [7726] Prescriptions as of 01/05/2018 Sig: HYDRALAZINE 100 [...] VISIT REPORT Observed: 01/01/2018 Status: F Source: ANTONITO 6:15 PM [facility] REPOSITORY Pulmonary Medicine of [address] [place] [address] OFFICE VISIT Date of Service: 01/01/18 MR#: [id number] Acct: [id number] Name: GARCIAMICHAEL Rose Rep #: [id number] : 1945 Provider: Josi Hickman Age/Sex: 72/F Location: [facility] Status: Signed Assessment AND Plan 1. INES [...] Orders: Plan Detail Follow Up 3 Months ([facility]) [facility] f/u: Chief Complaint: Shortness of breath [employer] [employer] [facility] Comments Details: This is a 72 year old very pleasant f, currently under the care of Mat Duffy, here to follow up after a recent hospitalization at [facility], from November 27, 2017 through December 09, [...] DAILY@0800 #30 tab 12/09/17 [Rx Confirmed 01/01/18] [facility] Medical History Rheumatic mitral insufficiency (Chronic) [...] 12/23/2017 Status: COMPLETED Source: WONG 11:37 AM [facility] REPOSITORY HNO ID: [id number] Author: Reny (Turner Machine) Older, JAVIER.JULIO C Service: (none) Author Type: Nurse Practitioner Type: Progress Notes Filed: 12/23/2017 1:08 PM Note Text: CC: Patient presents with: Hospital F/U: was at [facility] for renal failure HPI Michael Garcia is a 72 year old female who presents today for hospital follow-up/TCM encounter. Reason for visit: Admitted from machinist outside office for elevated PANCA, concern JORGE on CKD due to vasculitis Which facility: [facility] Date of visit: 12/12/17 to 12/17/17 Diagnosis: JORGE on CKD, requiring dialysis 3 times a week on //; etiology unknown Testing done: kidney biopsy-negative for vasculitis, echocardiogram-EF 65%, Chest m-giy-fixakvcfh venous congestion, CBC-anemia Treatment given: Dialysis, 2 [...] Has appointment in a couple weeks with machinist outside. Going to dialysis MW. 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 Anemia in chronic kidney disease, unspecified CKD stage - ICD9: 285.21, ICD10: N18.9, D63.1 Continue to monitor CBC. Will be managed by nephrology 3. INES on CPAP - ICD9: 327.23, V46.8, ICD10: G47.33, Z99.89 Unclear why settings were changed. junior assistant manager will contact [employer] and patient's guide travel concerning patient's symptoms 4. Generalized edema - [...] C CNOV Observed: 12/23/2017 Status: COMPLETED Source: ASHIPPUN 11:20 AM [facility] REPOSITORY Office Visit (INTMWS) MICHAEL GARCIA ([id number]) 1945 F BLD Date Time Provider Department 12/23/17 11:20 AM OLDER, RENY (JULIO C) INTMWS During your visit today, we recorded the following information about you: Temperature Pulse Respiration Blood pressure 98.4 degrees 64/minute 20/minute 136/68 Weight 95.3 kg Reny Older, RODOLFO REYNOLDS 12/23/2017 1:08 PM Signed CC: Patient presents with: Hospital F/U: was at [facility] for renal failure HPI Michael Garcia is a 72 year old female who presents today for hospital follow-up/TCM encounter. 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 Going to dialysis MW. States she is [...] Type 2 diabetes mellitus with renal manifestations ([facility]) 01/19/2016 Dr. Romeo, nephrology - Umbilical hernia without obstruction and without gangrene 01/19/2016 PAST SURGICAL HISTORY Procedure Laterality Date - ACHILLES TENDON SURGERY HX Right 1995 - BREAST BIOPSY CORE Left 2013 benign - [facility] 10/27/2017 Colonoscopy w/bx [facility] - EGD W/O OR W/BRUSH/WASH 10/27/2017 EGD w/bx [facility] - LAPAROSCOPIC CHOLEYCYSTECTOMY Cholecystectomy, lap - [...] oxygen Dx: Hypoxemia. R09.02. 3 LPM via [place] continuous. ergocalciferol, vitamin D2, (VITAMIN D) 50,000 [...] dialysis and labs as ordered Follow-up with machinist outside Follow-up with PCP sooner than appointment scheduled in February 2. Anemia in chronic kidney disease, unspecified CKD stage - ICD9: 285.21, ICD10: N18.9, D63.1 Continue to monitor CBC. Will be managed by nephrology 3. INES on CPAP - ICD9: 327.23, V46.8, ICD10: G47.33, Z99.89 Unclear why settings were changed. junior assistant manager will contact [employer] and patient's guide travel concerning patient's symptoms 4. 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] INVALID FOR* CKD (chronic kidney disease) stage 3, GFR 30-59*INVALID FOR* Hypoxemia [R09.02] INVALID FOR* Acute diastolic CHF (congestive heart failure) *INVALID FOR* Anemia in stage 3 chronic kidney disease [N18.3*INVALID FOR* JORGE (acute kidney injury) (HCC) [N17.9] INVALID FOR* Acute renal failure on dialysis ([facility]) [N17.9, Z*INVALID FOR* Other instructions from your [...] 12/23/17 TUAN Observed: 12/23/2017 Status: COMPLETED Source: ASHIPPUN 12:00 AM [facility] REPOSITORY Patient Outreach (INTMWS) MICHAEL GARCIA ([id number]) 1945 F BLD Date Time Provider Department 12/23/17 SIMIN AQUINO During your visit today, we recorded the following information about you: Simin Duarte RN 07/17/2018 8:32 AM Signed PRIMARY CARE COORDINATION FOLLOW-UP NOTE Provider Action/FYI Patient identified by name and date of . YES Spoke to [facility] Summary: Spoke with pharmacist who said they should hav reached their deductible- that's what cost so much. Her insulins should cost $131 for a 3 month supply each. called back and LMOM that dose of Lasix she has is 40mg and she was told to resume 1/2 tab BID by Concaving Machine Operator to help her kidneys. She has been taking that and has been voiding. They are hoping she can stop dialysis at some point. Concerns: Behaviorist plan for next outreach: Signature Simin Villarreal RN Ambulatory Screen Handler Internal Medicine [facility] December 24, 2017 Allergies As of Date: 12/23/2017 (No Known Allergies) Date Reviewed: 12/23/2017 Reviewed by: Cindy Robles (Lucila) LUCILA Rahman - Fully Assessed Reason for Visit: Screen Handler Hospital Follow Up [5495] Cmt: [facility] 12/12- Prescriptions as of 12/23/2017 Sig: [...] (HCC) [N17.9, Z*INVALID FOR* Encounter Status:Closed by [employer], PRODUSER on 07/17/18 BASIC METABOLIC Collected: 12/22/2017 Status: F Source: CHRISTOPHER PROFILE (BMP) 8:54 AM [facility] REPOSITORY TYPE CODE TESTS RESULT OUT OF [...] GAP 10 Performed By: #### L500.2500 #### [facility] [address] [place], [address] PROGRESS Observed: 12/19/2017 Status: COMPLETED Source: ASHIP[place]UN 5:17 PM [facility] REPOSITORY HNO ID: [id number] Author: Simin Duarte [facility] Service: (none) Author Type: Registered Nurse Type: Progress Notes Filed: 01/15/2018 8:41 AM Note Text: TRANSITION CARE MANAGEMENT (TCM) INITIAL CONTACT Provider Action/FYI: Pt having dialysis MWF 7-11am. On O2 @ 3.5L NC. Eating well, no complaints. Initial contact with patient post discharge, spoke to spouse. Patient identified by name and . SUMMARY: -Pt discharged from [facility] on 12/17/17. -Follow up appointment on [...] ATN The patient presented from her outpatient machinist outside with a positive PANCA, concern for JORGE [...] outpatient, will continued with HD MWF in [place]. She is to avoid NSAIDs/ IV contrast/nephrotoxic [...] right heart catheterization with the patient's outpatient guide travel. She was discharged on her home O2 [...] ? PROGRESS Observed: 12/19/2017 Status: COMPLETED Source: A[place]IP[place] 5:17 PM [facility] REPOSITORY O ID: [id number] Author: Simin Villarreal Service: (none) Author Type: Registered Nurse Type: Progress Notes Filed: 01/15/2018 8:41 AM Note Text: Pt contacted and going to dialysis. TUAN Observed: 12/19/2017 Status: COMPLETED Source: [place]IP[place] 12:00 AM [facility] REPOSITORY Patient Outreach (INTMWS) MICHAEL GARCIA ([id number]) 1945 F BLD Date Time Provider Department [...] name and . SUMMARY: -Pt discharged from [facility] on 12/17/17. 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 -Medication review done yes. -Admitted for: Renal failure CONCERNS: No complaints. BSs running 167. Checking BSs TID, occasionally over 200. Doing correction at mealtime. Using O2 @ 3.5L/NC with O2 Sat running 97%. NEW MEDICATIONS: None MEDS HELD/DISCONTINUED: As listed BRIEF HOSPITAL COURSE: ? JORGE on CKD requiring HD, unclear etiology, likely 2/2 ATN The patient presented from her outpatient machinist outside with a positive PANCA, concern for JORGE [...] nephrology as outpatient, will continued with HD [facility] in [place]. She is to avoid NSAIDs/ IV contrast/nephrotoxic [...] right heart catheterization with the patient's outpatient guide travel. She was discharged on her home O2 [...] Barth - Fully Assessed Reason for Visit: Screen Handler Hospital Follow Up [3610] Cmt: [facility] 12/12-12/17 Reason For Visit History Recorded [...] ALLIED HEALTH Observed: 12/17/2017 Status: COMPLETED Source: ASHIP[place] 4:14 PM CLIN[facility] OTHER [facility]AMP[facility] REPOSITORY HNO ID: [id number] Author: Barbara AnguianoRn) ELI Ryan Service: Home Care Services Author Type: Registered Nurse Type: Allied Health Filed: 12/17/2017 4:47 PM Note Text: BAIL AGENT NOTE SERVICE DATE: 12/17/2017 SERVICE TIME: 4:43 PM Discharge: Aware of Discharge home today Physician order placed for Home Care Services Home Care Agency: [facility] - active Start of care date: 24-48 hours Supplies ordered: n/a Patient/Family agree to discharge plan: yes SIGNATURE: Barbara Ryan RN PATIENT NAME: Michael Garcia DATE: December 17, 2017 TIME: 4:43 PM BAIL AGENT NOTE ALLIED HEALTH Observed: 12/17/2017 Status: COMPLETED Source: [place] 3:55 PM [facility] [place] REPOSITORY HNO ID: [id number] Author: Danette AnguianoRn) ELI Choen Service: Home Care Services Author Type: Registered Nurse Type: Allied Health Filed: 12/17/2017 3:57 PM Note Text: BAIL AGENT NOTE SERVICE DATE: 12/17/2017 SERVICE TIME: 3:56 PM Patient Choice: Spoke with patient and family at bedside Discussed home health care services. Patient given a choice - chose Continue with services through [facility]. Will send referral via [employer]. Signed [facility] order obtained. Thank you SIGNATURE: Danette Cohen RN PATIENT NAME: Michael Garcia DATE: December 17, 2017 TIME: 3:55 PM GLUCOSE METER Collected: 12/17/2017 Status: F Source: [facility] 3:33 PM HEALTH SYSTEM REPOSITORY TYPE CODE TESTS RESULT OUT OF REFERENCE UNITS RANGE LAB GLUBL(LOINC 70-99 mg/dL ) High Glucose Meter 203 Result Comment: RN NOTIFIED Performed By: #### GLMET #### [place] [address] CASE MANAGEM Observed: 12/17/2017 Status: COMPLETED Source: [place] 3:17 PM [facility] [place] REPOSITORY HNO ID: [id number] Author: Liv AnguianoRn) ELI Fuller Service: Care Management Author Type: Registered Nurse Type: Care Mgt Progress Note Filed: 12/17/2017 3:19 PM Note Text: CARE MANAGEMENT DISCHARGE NOTE SERVICE DATE: 12/17/2017 SERVICE TIME: 1315 LOS: 5 days Admission Date: 12/12/2017 DISCHARGE ARRANGEMENT (list agency and phone number) Home care Provider: [facility] Care Phone: CAREGIVER ASSESSMENT: Caregiver is ready, willing and able to meet the patient's needs as recommended by the inter-professional team? Yes Patient's transition needs and plan for meeting these needs: yes Does the patient have an acute stroke diagnosis, or has the patient had a stroke during this admission? No HANDOFF COMMUNICATION: Pt going home with [facility]. Pt is active with [facility]. VNS Coordinator notified. TRANSPORTATION ARRANGEMENTS: Car Family here to transport home. They have portable O2 for transport. ADDITIONAL CONTACT RESOURCES: SIGNATURE: Liv Fuller RN PATIENT NAME: Michael Garcia DATE: December 17, 2017 TIME: 3:17 PM PAGER/CONTACT #: [phone] GLUCOSE METER Collected: 12/17/2017 Status: F Source: [facility] 12:11 PM HEALTH SYSTEM REPOSITORY TYPE CODE TESTS RESULT OUT OF REFERENCE UNITS RANGE LAB GLUBL(LOINC 70-99 mg/dL ) High Glucose Meter 170 Result Comment: RN NOTIFIED Performed By: #### GLMET #### [place] [address] NURSING PROG Observed: 12/17/2017 Status: COMPLETED Source: [facility] 11:56 AM CLINIC OTHER CAMPUS REPOSITORY HNO ID: [id number] Author: Manju AnguianoRn) ELI Quiroga Service: Dialysis Author Type: Registered Nurse Type: Nursing Progress Note Filed: 12/17/2017 11:56 AM Note Text: HEMODIALYSIS TX COMPLETED PAULA WELL STABLE FLUID BALANCE - 1000 ML OFF SEE FLOW SHEET FOR DETAILS CASE MANAGEM Observed: 12/17/2017 Status: COMPLETED Source: [facility] 10:31 AM [facility] OTHER CAMPUS REPOSITORY HNO ID: [id number] Author: Liv AnguianoRn) ELI Fuller Service: Care Management Author Type: Registered Nurse Type: Care Mgt Progress Note Filed: 12/17/2017 10:34 AM Note Text: CARE MANAGEMENT PROGRESS NOTE SERVICE DATE: 12/17/2017 SERVICE TIME: 1032 LOS: 5 days Chart reviewed. PT saw and recommending home PT. C tasked and following. Pt has home O2. She wears 3.5 Liters NC. Has multiple DME. Plan home with [facility]. SIGNATURE: Liv Fuller RN PATIENT NAME: Michael Garcia DATE: December 17, 2017 TIME: 10:32 AM PAGER/CONTACT #: [phone] THERAPY NT Observed: 12/17/2017 Status: COMPLETED Source: [facility] 8:45 AM [facility] REPOSITORY HNO ID: [id number] Author: Shraddha AnguianoOtr/L) Sylvester Service: Occupational Therapy Author Type: Occupational Therapist Type: Therapy (PT/OT/Speech/Resp) Filed: 12/17/2017 8:46 AM Note Text: OCCUPATIONAL THERAPY MISSED VISIT SERVICE DATE: 12/17/2017 SERVICE TIME: 08 to 0845 ROOM: [place] [address] Attempted Evaluation. Patient not seen due to Test/Procedure. Patient at dialysis, will continue to follow as able and appropriate. SIGNATURE: Shraddha Phan OTR/L PATIENT NAME: Michael Garcia DATE: December 17, 2017 TIME: 8:46 AM PAGER/CONTACT #: [phone] PROGRESS Observed: 12/17/2017 Status: COMPLETED Source: [facility] 7:18 AM [facility] REPOSITORY HNO ID: [id number] Author: Portillo Romeo Service: Nephrology Author Type: [...] at 12/16/17 1646 fluticasone 50 mcg/actuation 1 [place] (FLONASE) 1 [place] EACH NOSTRIL DAILY Umu (Julio C) JULIO C Rios 1 [place] at 12/16/17 0842 pill splitter (patient-specific) 1 [...] see her at the kidney center in [place] ([facility]). We will continue to monitor for renal recovery there. The current medication list was reviewed. All medications are appropriately dosed for the current creatinine clearance. 2. Anemia. Continue TEZ with HD. 3. HTN. BP is acceptable. Continue current BP meds. 4. T2DM. Glycemic control per medicine service. Please do not hesitate to contact me at [phone] if there is any question or concern. Matilde Hayward MD (Portillo Romeo) CNDS Observed: 12/17/2017 Status: COMPLETED Source: [facility] 7:06 AM [facility] OTHER CAMPUS REPOSITORY O ID: [id number] Author: Vani Hodge Service: General Internal Medicine Author Type: Physician Type: Discharge Summaries Filed: 12/18/2017 10:07 PM Note Text: [facility] DISCHARGE SUMMARY Patient: Michael Garcia : 1945 Date of Admission: 12/12/2017 Date of Discharge: 12/17/2017 Attending at Discharge: Dr Vani Hodge Discharged from: [facility] Medicine Inpatient Service Disposition to: Home with home health care Condition at Discharge: Stable Principal Diagnosis: JORGE on CKD requiring dialysis Secondary Diagnoses: Problem List Noted Noted By Resolved Resolved By JORGE (acute kidney injury) ([facility]) 12/12/2017 Noman (Res) Chandrika No Anemia in [...] at discharge. - fluticasone 50 mcg/actuation 1 [place] (FLONASE) Auto DC at discharge. - sodium [...] CKD requiring dialysis who now presents from machinist outside office with elevated P-ANCA on labwork. Vitals: [...] ATN The patient presented from her outpatient machinist outside with a positive PANCA, concern for JORGE [...] nephrology as outpatient, will continued with [facility] in [place]. She is to avoid NSAIDs/ IV contrast/nephrotoxic [...] right heart catheterization with the patient's outpatient guide travel. She was discharged on her home O2 [...] to 2 weeks. Follow up with OP guide travel in 2-4 weeks. Follow up with machinist outside in 2 weeks. Disease Education provided to patient and family. Home health care: established with [facility] Discussed with the attending upon discharge as listed above, and they agree with the plan. Lori Mcgill DO December 17, 2017 7:16 PM Internal Medicine, PGY1 Pager: [phone] [facility] Evaluated Independently on 12/17/2017 Agree with the [...] up. Attestation signed by Vani Hodge MD [facility] Attending December 18, 2017 10:05 PM GLUCOSE METER Collected: 12/17/2017 Status: F Source: [facility] 6:32 AM HEALTH SYSTEM REPOSITORY TYPE CODE TESTS RESULT OUT OF REFERENCE UNITS RANGE LAB GLUBL(LOINC 70-99 mg/dL ) High Glucose Meter 207 Result Comment: RN NOTIFIED Performed By: #### GLMET #### [place] [address] HEMOGRAM Collected: 12/17/2017 Status: F Source: [facility] 4:30 AM HEALTH SYSTEM REPOSITORY TYPE CODE [...] MPV 9.9 Performed By: #### CBC1 #### [facility] [address] [place] [address] BASIC PANEL Collected: 12/17/2017 Status: F Source: [facility] 4:30 AM HEALTH SYSTEM REPOSITORY TYPE CODE [...] Gap 10 Performed By: #### P8 #### [place] [address] MDRD GFR Collected: 12/17/2017 Status: F Source: [facility] 4:30 AM HEALTH SYSTEM REPOSITORY TYPE CODE TESTS RESULT OUT OF RANGE REFERENCE UNITS LAB GFRFN(LOINC >60mL/min/1.73m ) 2 eGFR 15.85 Result Comment: If the patient is , multiply the result by 1.210. Performed By: #### GFR #### [facility] [address] [place] [address] GLUCOSE METER Collected: 12/16/2017 Status: F Source: [facility] 8:36 PM HEALTH SYSTEM REPOSITORY TYPE CODE TESTS RESULT OUT OF REFERENCE UNITS RANGE LAB GLUBL(LOINC 70-99 mg/dL ) High Glucose Meter 270 Result Comment: RN NOTIFIED Performed By: #### GLMET #### [place] [address] GLUCOSE METER Collected: 12/16/2017 Status: F Source: [facility] 4:07 PM HEALTH SYSTEM REPOSITORY TYPE CODE TESTS RESULT OUT OF REFERENCE UNITS RANGE LAB GLUBL(LOINC 70-99 mg/dL ) High Glucose Meter 193 Result Comment: RN NOTIFIED Performed By: #### GLMET #### [facility] [address] [place] [id number] NURSING PROG Observed: 12/16/2017 Status: COMPLETED Source: [facility] 4:05 PM [facility] OTHER [place] REPOSITORY HNO ID: [id number] Author: Laura (Rn) ELI Castillo Service: (none) Author Type: Registered Nurse Type: Nursing Progress Note Filed: 12/16/2017 4:06 PM Note Text: Spoke with Dr. Mcgill from [facility] to request about pain medication per pt request. Dr. Mcgill says orders will be put in. BRIEF OP NOT Observed: 12/16/2017 Status: COMPLETED Source: [facility] 3:54 PM [facility] REPOSITORY HNO ID: [id number] Author: Maurizio Winkler Service: Vascular Surgery Author Type: Physician Type: Brief Op Note Filed: 12/16/2017 3:55 PM Note Text: BRIEF OPERATIVE / PROCEDURE NOTE LOG ID: [id number] Surgery/Procedure Date: 12/16/2017 Incision/Procedure Start Time: Incision Close/Procedure End Time: Surgeon(s)/Proceduralist(s) and Boom Stick Worker(s): Surgeon(s) and Role: * Maurizio Winkler - [...] TUNN DIALYSIS/SAME Observed: 12/16/2017 Status: F Source: [facility] ACCESS [id number] 3:45 PM HEALTH SYSTEM REPOSITORY Performed at [facility] APPROVED BY: MAURIZIO WINKLER MD EXAM TITLE: [...] NURSING PROG Observed: 12/16/2017 Status: COMPLETED Source: [facility] 12:33 PM [facility] REPOSITORY HNO ID: [id number] Author: Manju AnguianoRn) ELI Quiroga Service: Dialysis Author Type: Registered Nurse Type: Nursing Progress Note Filed: 12/16/2017 12:36 PM Note Text: Received pt in dialysis LIC Diaysis catheter not workind Dr Jenkins notified Order placed for IR to change catheter Will monitor closely NURSING PROG Observed: 12/16/2017 Status: COMPLETED Source: [facility] 11:51 AM [facility] REPOSITORY HNO ID: [id number] Author: Janeth AnguianoRn) ELI Pfeiffer Service: Cardiovascular Testing Author Type: Registered Nurse Type: Nursing Progress Note Filed: 12/16/2017 11:53 AM Note Text: Definity IVP given for Image enhancement per protocol. No signs of infiltration, tolerated well GLUCOSE METER Collected: 12/16/2017 Status: F Source: [facility] 10:46 AM HEALTH SYSTEM REPOSITORY TYPE CODE TESTS RESULT OUT OF REFERENCE UNITS RANGE LAB GLUBL(LOINC 70-99 mg/dL ) High Glucose Meter 283 Result Comment: RN NOTIFIED Performed By: #### GLMET #### [facility] [address] [place] [address] PROGRESS Observed: 12/16/2017 Status: COMPLETED Source: [facility] 10:13 AM CLINIC OTHER CAMPUS REPOSITORY HNO ID: [id number] Author: Domingo Jenkins Service: Nephrology Author Type: [...] OF PRESENT ILLNESS: Patient has been at [facility] since Friday night. The Patient reports [...] SUBCUTANEOUS w MEALS fluticasone 50 mcg/actuation 1 [place] (FLONASE) 1 [place] EACH NOSTRIL DAILY pill splitter (patient-specific) 1 [...] (IPCD) SIGNATURE: Feroz Moody Ms PATIENT NAME: Micheal Garcia DATE: December 16, 2017 TIME: 10:13 [...] not available but this is unlikely to blade changer pANCA was positive but no clinical manifestations. Catheter malfunctioned today so could not dialyze. Plan Catheter exchange today HD tomorrow and as per schedule MWF. Looking at the creatinine values, she may recover soon. No plans for TPE Can dc tomorrow once HD done She already has an outpatient spot [facility] Observed: 12/16/2017 Status: COMPLETED Source: [facility] 8:51 AM CLINIC OTHER CAMPUS REPOSITORY HNO ID: [id number] Author: Roxann Arango) ELI Harry Service: Home Care Services Author Type: Registered Nurse Type: Allied Health Filed: 12/16/2017 8:52 AM Note Text: BAIL AGENT NOTE SERVICE DATE: 12/16/2017 SERVICE TIME: 8:51 AM Referral: Home Care referral received by: RO Patient is active with [facility] agency for skilled care Will continue to follow for physician orders SIGNATURE: Roxann Harry RN PATIENT NAME: Michael Garcia DATE: December 16, 2017 TIME: 8:51 AM PROGRESS Observed: 12/16/2017 Status: COMPLETED Source: [facility] 8:49 AM CLINIC OTHER CAMPUS REPOSITORY HNO ID: [id number] Author: Vani Hodge Service: General Internal Medicine [...] requiring HD admitted currently per recommendation from machinist outside for evaluation and management of p ANCA [...] SUBCUTANEOUS w MEALS fluticasone 50 mcg/actuation 1 [place] (FLONASE) 1 [place] EACH NOSTRIL DAILY pill splitter (patient-specific) 1 [...] December 16, 2017 TIME: 8:49 AM Pager: [phone] Evaluated independently Agree with the above notes by which reflects my input with the following additions Awaiting for renal biopsy and echo Attestation signed by Vani Hodge MD [facility] Attending December 16, 2017 9:51 PM NURSING PROG Observed: 12/16/2017 Status: COMPLETED Source: [facility] 8:45 AM [facility] REPOSITORY HNO ID: [id number] Author: Laura AnguianoRn) ELI Castillo Service: (none) Author Type: Registered Nurse Type: Nursing Progress Note Filed: 12/16/2017 8:46 AM Note Text: Continuous pulse ox discontinued per pulm orders. PROGRESS Observed: 12/16/2017 Status: COMPLETED Source: [facility] 8:13 AM [facility] REPOSITORY HNO ID: [id number] Author: Umu Rios CNP Service: Pulmonary Disease Author Type: Nurse Practitioner Type: Progress Notes Filed: 12/16/2017 8:34 AM Note Text: Attestation signed by Raimundo Wall at 12/16/2017 9:04 AM [facility] STAFF PHYSICIAN NOTE OF PERSONAL INVOLVEMENT IN [...] (Res) Jose Alfredo fluticasone 50 mcg/actuation 1 [place] (FLONASE) 1 [place] EACH NOSTRIL DAILY Umu Hyatt) JULIO C Rios 1 [place] at 12/15/17 0855 pill splitter (patient-specific) 1 [...] LABS/MICRO DATA/RADIOLOGY FILMS NO MICROBIOLOGY DATA BNP 98604 PROCALCITONIN 0.29 BMP: Glucose (mg/dL) Date Value [...] OP follow up with Dr. Valencia in [place]. May eventually need RHC. 5) Acute on [...] to follow up with Dr. Valencia in [place] as outlined above. SIGNATURE: Umu Rios CNP PATIENT NAME: Michael Garcia DATE: December 16, 2017 TIME: 8:13 AM PAGER/CONTACT #: [phone] GLUCOSE METER Collected: 12/16/2017 Status: F Source: [facility] 6:39 AM HEALTH SYSTEM REPOSITORY TYPE CODE TESTS RESULT OUT OF REFERENCE UNITS RANGE LAB GLUBL(LOINC 70-99 mg/dL ) High Glucose Meter 250 Result Comment: RN NOTIFIED Performed By: #### GLMET #### [place] [address] HEMOGRAM Collected: 12/16/2017 Status: F Source: [facility] 3:25 AM HEALTH SYSTEM REPOSITORY TYPE CODE [...] MPV 9.7 Performed By: #### CBC1 #### [place] [address] BASIC PANEL Collected: 12/16/2017 Status: F Source: [facility] 3:25 AM HEALTH SYSTEM REPOSITORY TYPE CODE [...] Gap 10 Performed By: #### P8 #### [place] [address] MDRD GFR Collected: 12/16/2017 Status: F Source: [facility] 3:25 AM HEALTH SYSTEM REPOSITORY TYPE CODE TESTS RESULT OUT OF RANGE REFERENCE UNITS LAB GFRFN(LOINC >60mL/min/1.73m ) 2 eGFR 15.91 Result Comment: If the patient is , multiply the result by 1.210. Performed By: #### GFR #### [facility] [address] [place], [place] [address] GLUCOSE METER Collected: 12/15/2017 Status: F Source: [facility] 8:24 PM HEALTH SYSTEM REPOSITORY TYPE CODE TESTS RESULT OUT OF REFERENCE UNITS RANGE LAB GLUBL(LOINC 70-99 mg/dL ) High Glucose Meter 223 Result Comment: RN NOTIFIED Performed By: #### GLMET #### [facility] [address] [place], [place] [address] GLUCOSE METER Collected: 12/15/2017 Status: F Source: [facility] 3:41 PM HEALTH SYSTEM REPOSITORY TYPE CODE TESTS RESULT OUT OF REFERENCE UNITS RANGE LAB GLUBL(LOINC 70-99 mg/dL ) High Glucose Meter 152 Result Comment: RN NOTIFIED Performed By: #### GLMET #### [facility] [address] [place], [place] [address] CASE MGT INIT Observed: 12/15/2017 Status: COMPLETED Source: [facility] 3:14 PM CLINIC OTHER CAMPUS REPOSITORY HNO ID: [id number] Author: Liv (Rn) ELI Fuller Service: Care Management Author Type: Registered Nurse Type: Care Mgt Initial Assessment Filed: 12/15/2017 3:29 PM Note Text: CARE MANAGEMENT: ASSESSMENT AND DISCHARGE PLAN SERVICE DATE: 12/15/2017 SERVICE TIME: 1515 PRIMARY CARE PHYSICIAN: Mat Duffy MD ADMISSION STATUS: Inpatient Needs Prior to Discharge: To Be Determined;OT/PT Evaluation;Pharmacy Bedside Delivery MEDICAL: 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 Senior Living Equipment Prior to Admission: Walker, home O2 3.5 liters nc , rollator, transport chair, shower seat, grab bars Has the Patient Been in a Senior Living Facility in the Past 30 days? No [...] 0 I feel financially burdened by my qts-ng-eewuvt expenses for my prescription medication: Disagree completely [...] a dialysis pt. [facility] [place] Every MWF. Chair time 0600. SIGNATURE: Liv Fuller RN PATIENT NAME: Michael Garcia DATE: December 15, 2017 TIME: 3:15 PM PAGER/CONTACT #: [phone] PLAN OF CARE Observed: 12/15/2017 Status: COMPLETED Source: [facility] 3:03 PM CLINIC OTHER CAMPUS REPOSITORY O ID: [id number] Author: Belinda Rice (Cable Inspector) Service: Pharmacy Author Type: Pharmacist Type: Plan of Care Filed: 12/15/2017 4:27 PM Note Text: MEDICATION HISTORY Patient Name:aVleria Garcia : 1945 Source of history:Family: Reliability of source: Appears reliable, clearly identified: Medication name, Medication dose and Medication route and Pharmacy records: [facility] Medication Nonadherence Identified: No barriers noted The above information represents the best possible medication history: Yes Additional comments: Patient's states she no longer takes Ventolin. 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 Padma Bangura (Email Deployment Specialist) December 15, 2017 3:03 PM I discussed medication history with retail pharmacy manager. I removed a duplicate vitamin D order from the patient's medication list. BELINDA RICE, PHARMACIST 4:[address] NEEDLE BIOPSY Observed: 12/15/2017 Status: F Source: [facility] RENAL 2:48 PM HEALTH SYSTEM REPOSITORY Performed at [facility] APPROVED BY: Manuel Mcgee MD EXAM TITLE: [...] with administration of agent, ends when continuous bvpu-xb-maav time ends): 20 minutes. Patient monitoring: I personally supervised and directed an independent trained observer who assisted in monitoring the patient?s level of consciousness and physiological status throughout the procedure. Medication: 100 micrograms of fentanyl IV; 2 milligrams of Versed IV IMPRESSION: Technically successful CT-guided random biopsy of left kidney. BRIEF OP NOT Observed: 12/15/2017 Status: COMPLETED Source: [facility] 2:27 PM [facility] REPOSITORY HNO ID: [id number] Author: Manuel Mcgee Service: (none) Author Type: Physician Type: Brief Op Note Filed: 12/15/2017 2:28 PM Note Text: INTERVENTIONAL RADIOLOGY POST PROCEDURE NOTE DATE: 12/15/17 NAME: Michael Garcia LOG ID: [id number] Pre-Procedure Diagnosis: Renal failure Post Procedure Diagnosis: Same. Retort Firer: Dr. 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 0 ml Specimen: Sent for pathology. Complications: None. Full report with procedural details to follow and will become available under Imaging Reports. Please contact for any questions or concerns. HISTORY PHYSICAL Observed: 12/15/2017 Status: COMPLETED Source: [facility] 1:42 PM [facility] REPOSITORY HNO ID: [id number] Author: Manuel Mcgee Service: (none) Author Type: [...] CHEST B-SCAN Observed: 12/15/2017 Status: F Source: [facility] 1:40 PM HEALTH SYSTEM REPOSITORY Performed at [facility] APPROVED BY: Manuel Mcgee MD EXAM TITLE: ULTRASOUND LEFT CHEST DATE: 12/15/2017 13:32 COMPARISON: None. CLINICAL INDICATION/HISTORY: Left pleural effusion TECHNIQUE: Ultrasound scanning of the left thorax was performed. FINDINGS: No left pleural effusion was identified. IMPRESSION: No left pleural effusion is identified. A left thoracentesis was not performed. GUILLAUME BY IFA SCREEN Collected: 12/15/2017 Status: F Source: [facility] 12:15 PM HEALTH SYSTEM REPOSITORY TYPE CODE TESTS RESULT OUT OF REFERENCE UNITS RANGE LAB ANAX(LOINC) GUILLAUME by IFA SEE BELOW Screen Result Comment: GUILLAUME Positive AB NEGAT Normal range : negative at <1:80 serum dilution. GUILLAUME Titer 1:640 AB NEGAT GUILLAUME Pattern Homogeneous Performing Laboratory: [facility] [address] [place] [address] Performed By: #### ANAX #### [facility] [address] [place] [address] GLUCOSE METER Collected: 12/15/2017 Status: F Source: [facility] 10:48 AM HEALTH SYSTEM REPOSITORY TYPE CODE TESTS RESULT OUT OF REFERENCE UNITS RANGE LAB GLUBL(LOINC 70-99 mg/dL ) High Glucose Meter 175 Result Comment: RN NOTIFIED Performed By: #### GLMET #### [place] [address] PROGRESS Observed: 12/15/2017 Status: COMPLETED Source: [facility] 10:36 AM CLINIC OTHER CAMPUS REPOSITORY HNO ID: [id number] Author: Vani Hodge Service: Nephrology Author Type: [...] OF PRESENT ILLNESS: Patient has been at [facility] since Friday night. Patient reports that she was at a hospital in [place] being treated for pneumonia and UTI and was receiving HD at that time for JORGE. The pt. was instructed to come of [facility] for kidney biopsy. Pt. Will undergo [...] INTRAVENOUS PRN(NO DISPENSE) fluticasone 50 mcg/actuation 1 [place] (FLONASE) 1 [place] EACH NOSTRIL DAILY loratadine 10 mg tab(s) [...] #: PROGRESS Observed: 12/15/2017 Status: COMPLETED Source: [facility] 10:22 AM CLINIC OTHER CAMPUS REPOSITORY HNO ID: [id number] Author: Vani Hodge Service: General Internal Medicine [...] requiring HD admitted currently per recommendation from machinist outside for evaluation and management of p ANCA [...] INTRAVENOUS PRN(NO DISPENSE) fluticasone 50 mcg/actuation 1 [place] (FLONASE) 1 [place] EACH NOSTRIL DAILY loratadine 10 mg tab(s) [...] Amiodarone 2/2 pulm HTN - records from [place] reviewed, not on anticoagulation 2/2 anemia and hx of intra cerebral bleed ? CREST Constipation - on senna ? PAD - Continue ASA, Statin ? INES - CPAP at night ? Nasal pressure ulcer (POA) 2/2 cpap mask ? DVT PPX - Lovenox renal dose SIGNATURE: Jordyn Veliz MD PATIENT NAME: Michael Garcia DATE: December 15, 2017 TIME: 8:26 AM Pager: [phone] Transferred to my service Chart reviewed Evaluated independently Discussed with Dr. Veliz and agree with above notes which reflect my input with following additions Awaiting for renal biopsy Discussed with patient Attestation signed by Vani Hodge MD [facility] Attending December 15, 2017 9:46 PM THERAPY NT Observed: 12/15/2017 Status: COMPLETED Source: [facility] 8:50 AM CLINIC OTHER CAMPUS REPOSITORY HNO ID: [id number] Author: Frances (Pt) Wang PT Service: Physical Therapy Author Type: Physical Therapist Type: Therapy (PT/OT/Speech/Resp) Filed: 12/15/2017 8:56 AM Note Text: Physical Therapy Evaluation SERVICE DATE: 12/15/2017 SERVICE TIME: 804 to 834 ROOM: [id number] Recommended Discharge Disposition: Home PT Anticipated Discharge [...] gait and mobility-other Interventions Provided: Evaluation;Gait Training (85369) $ Evaluation-Moderate (01830) Billed Units: 1 unit Gait Training (05098) Treatment Minutes: 8 1 unit Skilled Intervention(s): [...] verbal cues for proper hand placement during alg-mj-oxvfv transfers Patient set up in chair with [...] Problems Diagnosis - JORGE (acute kidney injury) ([facility]) PAST MEDICAL HISTORY Diagnosis Date - Cerebellar hemorrhage, acute (HCC) 04/04/2016 - CKD (chronic kidney disease) stage 3, GFR 30-59 ml/min 04/04/2016 - CREST variant of scleroderma (HCC) 04/04/2016 - Diabetic peripheral neuropathy associated with type 2 diabetes mellitus ([facility]) 01/19/2016 - Essential hypertension with goal blood [...] Type 2 diabetes mellitus with renal manifestations ([facility]) 01/19/2016 Dr. Romeo, nephrology - Umbilical hernia without obstruction and without gangrene 01/19/2016 PAST SURGICAL HISTORY Procedure Laterality Date - ACHILLES TENDON SURGERY HX Right 1995 - BREAST BIOPSY CORE Left 2013 benign - [facility] w/bx [facility] - EGD W/O OR W/BRUSH/WASH 10/27/2017 EGD w/bx [facility] - LAPAROSCOPIC CHOLEYCYSTECTOMY Cholecystectomy, lap - [...] Environment Patient Lives With: Significant Other ([employer]) Assistance Available: 24 Hour Entry To Home: [...] 15, 2017 TIME: 8:50 AM PAGER/CONTACT #: [phone] PROGRESS Observed: 12/15/2017 Status: COMPLETED Source: [facility] 8:16 AM [facility] OTHER CAMPUS REPOSITORY HNO ID: [id number] Author: Teresa Palacio CNP Service: Pulmonary Disease Author Type: Nurse Practitioner Type: Progress Notes Filed: 12/15/2017 8:36 AM Note Text: Attestation signed by Raimundo Wall at 12/15/2017 9:18 AM [facility] ST[facility]FF PHYSICIAN NOTE OF PERSONAL INVOLVEMENT IN [...] of SERVICE: 9:16 AM PULMONARY/CCM PROGRESS NOTE [facility] SERVICE DATE: December 15, 2017 SERVICE TIME: 8:16 AM Subjective Denies shortness of breath at rest, but does admit to some [place] Denies cough or phlegm production Still complaining of sinus draining and post nasal drip Denies chest pain, fevers/chills/sweats, nausea/vomiting/diarrhea Wears 3.5LO2 at home Objective CURRENT MEDICATIONS Current Facility-Administered Medications: fluticasone 50 mcg/actuation 1 [place] (FLONASE) 1 [place] EACH NOSTRIL DAILY Umu ([employer]er [employer]) Gabriel, PLANT FACILITIES TECHNICIAN 1 [place] at 12/14/17 1211 loratadine 10 mg tab(s) (CLARITIN) 10 mg ORAL DAILY Umu (Turner [employer]) [place], PLANT FACILITIES TECHNICIAN 10 mg at 12/14/17 1210 pill splitter [...] LABS/MICRO DATA/RADIOLOGY FILMS NO MICROBIOLOGY DATA BNP 33227 PROCALCITONIN 0.29 BMP: Glucose (mg/dL) Date Value [...] OP follow up with Dr Valencia in [place]. 5) Acute on Chronic Diastolic HF with [...] 15, 2017 TIME: 8:16 AM PAGER/CONTACT #: [phone] GLUCOSE METER Collected: 12/15/2017 Status: F Source: [facility] 6:58 AM HEALTH SYSTEM REPOSITORY TYPE CODE TESTS RESULT OUT OF REFERENCE UNITS RANGE LAB GLUBL(LOINC 70-99 mg/dL ) High Glucose Meter 172 Result Comment: RN NOTIFIED Performed By: #### GLMET #### [facility] [address] [place] [address] HEMOGRAM Collected: 12/15/2017 Status: F Source: [facility] 3:15 AM HEALTH SYSTEM REPOSITORY TYPE CODE [...] MPV 9.6 Performed By: #### CBC1 #### [facility] [address] [place] [id number] BASIC PANEL Collected: 12/15/2017 Status: F Source: [facility] 3:15 AM HEALTH SYSTEM REPOSITORY TYPE CODE [...] Gap 10 Performed By: #### P8 #### [facility] [address] [place] [address] MDRD GFR Collected: 12/15/2017 Status: F Source: [facility] 3:15 AM HEALTH SYSTEM REPOSITORY TYPE CODE TESTS RESULT OUT OF RANGE REFERENCE UNITS LAB GFRFN(LOINC >60mL/min/1.73m ) 2 eGFR 16.98 Result Comment: If the patient is , multiply the result by 1.210. Performed By: #### GFR #### [place] [address] PROTIME Collected: 12/15/2017 Status: F Source: [facility] 3:15 AM HEALTH SYSTEM REPOSITORY TYPE CODE TESTS RESULT OUT OF REFERENCE UNITS RANGE LAB PTI(LOINC) 9.3-11.9 sec Prothrombin Time 10.3 LAB INR(LOINC) INR 0.97 Result Comment: Standard Therapy 2.0-3.0 High Dose 2.5-3.5 Performed By: #### PT #### [place] [address] ACTIVATED PTT Collected: 12/15/2017 Status: F Source: [facility] 3:15 AM HEALTH SYSTEM REPOSITORY TYPE CODE TESTS RESULT OUT OF REFERENCE UNITS RANGE LAB APTT(LOINC 22.0-34.0 sec ) Activated PTT 23.7 Performed By: #### APTT #### [place] [address] LD,TOTAL BLOOD Collected: 12/15/2017 Status: F Source: [facility] 3:10 AM HEALTH SYSTEM REPOSITORY TYPE CODE TESTS RESULT OUT OF RANGE REFERENCE UNITS LAB LDH(LOINC) 84-246 U/L LD,Total 154 Blood Performed By: #### LDH #### [place] [address] TOTAL PROTEIN Collected: 12/15/2017 Status: F Source: [facility] 3:10 AM HEALTH SYSTEM REPOSITORY TYPE CODE TESTS RESULT OUT OF REFERENCE UNITS RANGE LAB TP(LOINC) 6.4-8.2 g/dL Low Total Protein 6.2 Performed By: #### TP #### [address] [address] SURGICAL PATHOLOGY Observed: 12/15/2017 Status: F Source: [facility] 12:00 AM [facility] REPOSITORY Specimen #: [id number] Submitting Physician: BIANCA LOBO FINAL DIAGNOSIS Left [place] kidney, biopsy: - Nodular diabetic glomerulosclerosis (46 [...] MD (Electronic Signature) SPECIMEN SUBMITTED A: LEFT EGEGIK KIDNEY, BIOPSY ([id number]) MICROSCOPIC DESCRIPTION Sections are stained with H&E, [...] in glomeruli. Albumin highlights background tissue architecture. Olpe and lambda stain equally throughout the tubulointerstitium. [...] in-situ hybridization tests have been determined by [facility] [place] ([facility]) in a manner consistent with CLIA requirements. One or more of these tests have not been cleared or approved by the FDA. [facility] is regulated under CLIA as qualified to [...] OF CREST. GROSS DESCRIPTION A. Received in [facility] are multiple segments of cylindrical romeo, soft tissue aggregating 5.0 x 0.1 x 0.1 cm. The specimen is washed in maleimide solution. A portion is frozen and kept frozen for direct immunofluorescence. A portion is submitted for electron microscopy. A portion is submitted in formalin for light microscopy in cassette A2. Gross examination performed at [facility], [facility] by [employer] 12/15/2017 Date of Report: 12/17/2017 Date of Procedure: 12/15/2017 Date of Receipt: 12/15/2017 Submitted by: BIANCA LOBO Location: Diagnostic interpretation performed at [facility], [facility] [place] [address]. SURGICAL TISSUE EXAM Observed: 12/15/2017 Status: F Source: [facility] 12:00 AM HEALTH SYSTEM REPOSITORY Test performed at [place] [address] NAME: MICHAEL GARCIA REQUESTING: BIANCA LOBO MD FINAL DIAGNOSIS: CORE BIOPSY OF LEFT KIDNEY - THE SPECIMEN IS FORWARDED TO THE [facility] FOR PROCESSING AND EVALUATION. OPERATIVE PROCEDURE: CT guided renal biopsy CLINICAL INFORMATION: Renal failure GROSS DESCRIPTION: Left kidney Received in Timo's fixative labeled CT-guided renal biopsy, left kidney, is a segment of kidney tissue sent to [facility] for processing. KVB:hlm EXTERNAL CONSULT, PATHOLOGIST (Electronic signature on file) Signed out: 12/17/2017 12:35 PRINTED: 12/17/2017 Page 1 of 1 Performed By: #### SURG #### [place] [address] PATHOLOGY MISCELLANEOUS Observed: 12/15/2017 Status: F Source: [facility] 12:00 AM HEALTH SYSTEM REPOSITORY Test performed at [place] [address] NAME: JOSE MICHAEL REQUESTING: BIANCA LOBO MD DIAGNOSIS: Left [place] Kidney Biopsy: See the full outside report from [facility]. SPECIMEN: TISSUE FOR SEND-OUT, Kidney Bx - [facility] EXTERNAL CONSULT, PATHOLOGIST (Electronic signature on file) Signed out: 01/02/2018 14:38 PRINTED: 01/02/2018 Page 1 of 1 Performed By: #### MISC #### [place] [address] GLUCOSE METER Collected: 12/14/2017 Status: F Source: [facility] 7:40 PM HEALTH SYSTEM REPOSITORY TYPE CODE TESTS RESULT OUT OF REFERENCE UNITS RANGE LAB GLUBL(LOINC 70-99 mg/dL ) High Glucose Meter 227 Result Comment: RN NOTIFIED Performed By: #### GLMET #### [place] [address] GLUCOSE METER Collected: 12/14/2017 Status: F Source: [facility] 4:07 PM HEALTH SYSTEM REPOSITORY TYPE CODE TESTS RESULT OUT OF REFERENCE UNITS RANGE LAB GLUBL(LOINC 70-99 mg/dL ) High Glucose Meter 217 Result Comment: RN NOTIFIED Performed By: #### GLMET #### [facility] [address] [place], [place] [address] HEMOGRAM Collected: 12/14/2017 Status: F Source: [facility] 3:08 HEALTH SYSTEM REPOSITORY TYPE CODE TESTS [...] MPV 9.8 Performed By: #### CBC1 #### [facility] [address] [place] [address] N-TERMINAL PRO-BNP Collected: 12/14/2017 Status: F Source: [facility] 3:08 HEALTH SYSTEM REPOSITORY TYPE CODE TESTS RESULT OUT OF RANGE REFERENCE UNITS LAB PBNP(LOINC) pg/ml 13806 N-terminal Pro-BNP Result Comment: Acute CHF Rule-in <50 yrs old >= 450 pg/ml >50 yrs old >= 900 pg/ml Abnormal Pro-BNP All patients >=300 pg/ml Performed By: #### PBNP #### [facility] [address] [place] [id number] BASIC PANEL Collected: 12/14/2017 Status: F Source: [facility] 3:08 PM HEALTH SYSTEM REPOSITORY TYPE CODE [...] Gap 10 Performed By: #### P8 #### [place] [address] MDRD GFR Collected: 12/14/2017 Status: F Source: [facility] 3:08 PM HEALTH SYSTEM REPOSITORY TYPE CODE TESTS RESULT OUT OF RANGE REFERENCE UNITS LAB GFRFN(LOINC >60mL/min/1.73m ) 2 eGFR 19.21 Result Comment: If the patient is , multiply the result by 1.210. Performed By: #### GFR #### [place] [address] PROGRESS Observed: 12/14/2017 Status: COMPLETED Source: [facility] 2:15 PM CLINIC OTHER CAMPUS REPOSITORY HNO ID: [id number] Author: Nidia Jones MD Service: Nephrology Author Type: Physician Type: Progress Notes Filed: 12/14/2017 2:18 PM Note Text: CONSULT PROGRESS NOTE NEPHROLOGY SERVICE Following for JORGE on HD No complaints today No nausea No vomiting No SOB No CP MEDICATIONS: Current hospital medications: fluticasone 50 mcg/actuation 1 [place] (FLONASE) 1 [place] EACH NOSTRIL DAILY loratadine 10 mg tab(s) [...] to follow ? ? Nidia Jones MD [phone] ? CHEST 2 VIEWS Observed: 12/14/2017 Status: F Source: [facility] 2:07 PM HEALTH SYSTEM REPOSITORY Performed at [facility] APPROVED BY: Kvng Avitia MD EXAMINATION: CHEST RADIOGRAPH (2 VIEW FRONTAL & LATERAL) Clinical History: Chest pain. MQ: [id number] Comparison: 12/13/2017 at 03 15. RESULT: Lines, tubes, and devices: Large bore left internal jugular central catheter with tip in the distal superior vena cava. Overlying quality assurance monitor body leads. Lungs and pleura: No focal infiltrate or effusion. Some degree of prominent vascularity centrally. Cardiomediastinal silhouette: Cardiomegaly. Other: The patient has had previous resection of the distal right clavicle. IMPRESSION: Cardiomegaly. No pleural effusions. Prominent central vasculature suggesting an element of vascular congestion. LUNG VENTILATION Observed: 12/14/2017 Status: F Source: [facility] 1:59 PM HEALTH SYSTEM REPOSITORY Performed at [facility] APPROVED BY: ALLA SELF MD VENTILATION-PERFUSION LUNG [...] NURSING PROG Observed: 12/14/2017 Status: COMPLETED Source: [facility] 12:00 PM CLINIC OTHER CAMPUS REPOSITORY HNO ID: [id number] Author: Nabila (Rn) ELI Cartagena Service: (none) Author Type: Registered Nurse Type: Nursing Progress Note Filed: 12/14/2017 4:15 PM Note Text: Nursing Progress Note Patient Name: Michael Garcia Patient Location: [place] [address]/[facility]* Pt c/o 7/10 heavy chest pain. Spoke with Dr Veliz by phone who stated she would come see the pt This note was completed by: Nabila Cartagena RN GLUCOSE METER Collected: 12/14/2017 Status: F Source: [facility] 10:37 AM HEALTH SYSTEM REPOSITORY TYPE CODE TESTS RESULT OUT OF REFERENCE UNITS RANGE LAB GLUBL(LOINC 70-99 mg/dL ) High Glucose Meter 253 Result Comment: RN NOTIFIED Performed By: #### GLMET #### [place] [id number] PROGRESS Observed: 12/14/2017 Status: COMPLETED Source: [facility] 9:00 AM CLINIC OTHER CAMPUS REPOSITORY HNO ID: [id number] Author: Jordyn Decker (Adina Veliz Service: General [...] pulmonary recommendations for this very special patient. [facility] DAILY PROGRESS NOTE SERVICE DATE: 12/14/2017 SERVICE [...] December 14, 2017 TIME: 8:26 AM Pager: [phone] CONSULT Observed: 12/14/2017 Status: COMPLETED Source: [facility] 8:35 AM [facility] OTHER CAMPUS REPOSITORY HNO ID: [id number] Author: Umu Rios CNP Service: Pulmonary Disease Author Type: Nurse Practitioner Type: Consults Filed: 12/14/2017 11:02 AM Note Text: Attestation signed by Echo Fernandes at 12/15/2017 9:40 AM [facility] ST[facility]FF PHYSICIAN NOTE OF PERSONAL INVOLVEMENT IN [...] Pulmonary will follow SIGNATURE: Echo Fernandes MD [facility] DATE of SERVICE: december 14, [...] in July and once just recently at [place] (admitted 11/27 - 12/08 and treated for [...] HISTORY Diagnosis Date - Cerebellar hemorrhage, acute ([facility]) 04/04/2016 - CKD (chronic kidney disease) stage 3, GFR 30-59 ml/min 04/04/2016 - CREST variant of scleroderma ([facility]) 04/04/2016 - Diabetic peripheral neuropathy associated with type 2 diabetes mellitus ([facility]) 01/19/2016 - Essential hypertension with goal blood pressure less than 130/85 01/19/2016 - Hyperlipidemia 01/19/2016 - Ischemic ulcer of finger with necrosis of muscle ([facility]) 01/19/2016 Left 3rd finger tip - Lazy eye of left side 1949s - Legally blind 01/19/2016 - Primary osteoarthritis of right knee 01/19/2016 - Retinal hemorrhage of right eye 2007 - S/P craniotomy 04/04/2016 - Type 2 diabetes mellitus with renal manifestations ([facility]) 01/19/2016 Dr. Romeo, nephrology - Umbilical hernia without obstruction and without gangrene 01/19/2016 PAST SURGICAL HISORY PAST SURGICAL HISTORY Procedure Laterality Date - ACHILLES TENDON SURGERY HX Right 1995 - BREAST BIOPSY CORE Left 2013 benign - [facility] w/bx [facility] - EGD W/O OR W/BRUSH/WASH 10/27/2017 EGD w/bx [facility] - LAPAROSCOPIC CHOLEYCYSTECTOMY Cholecystectomy, lap - [...] k/uL No recent new micro found in [facility] RADIOLOGY FILMS: CXR 12/13/17: 1. Lines, Tubes, [...] 51% No PSGs / PFTs found in [facility] ? VITALS: BP 119/65 Pulse 64 Temp [...] OP follow up with Dr. Valencia in [place]. 5. Suspected Acute on chronic diastolic heart [...] 10. Recent LLL Pneumonia - treated at [facility] with Zosyn AND Levaquin 11. MMP - per primary 12. Further evaluation with attending to follow. SIGNATURE: Umu Rios CNP PATIENT NAME: Michael Garcia DATE: December 14, 2017 TIME: 8:35 AM PAGER/CONTACT #: [phone] ? GLUCOSE METER Collected: 12/14/2017 Status: F Source: [facility] 6:29 AM HEALTH SYSTEM REPOSITORY TYPE CODE TESTS RESULT OUT OF REFERENCE UNITS RANGE LAB GLUBL(LOINC 70-99 mg/dL ) High Glucose Meter 132 Performed By: #### GLMET #### [place] [address] NURSING PROG Observed: 12/14/2017 Status: COMPLETED Source: [facility] 4:24 AM CLINIC OTHER CAMPUS REPOSITORY O ID: [id number] Author: Bhavya (Rn) ELI Forrest Service: Nursing Author Type: Registered Nurse Type: Nursing Progress Note Filed: 12/14/2017 4:27 AM Note Text: Nursing Progress Note Patient Name: Michael Garcia Patient Location: [place] [address]/[place] [address]* Daily Note: Patient was found sleeping without BiPAP mask on, was found to be 62% on room air. BiPAP was placed back on and pulled up in bed. Oxygen back to 94% on BiPAP, instructed to not remove mask when sleeping. Patient agreeable, will continue to monitor. This note was completed by: Bhavya Forrest RN IONIZED CALCIUM Collected: 12/13/2017 Status: F Source: [facility] 11:30 PM HEALTH SYSTEM REPOSITORY TYPE CODE TESTS RESULT OUT OF REFERENCE UNITS RANGE LAB CAION(LOINC 4.43-4.93 mg/dL ) Low Ionized 3.82 Calcium LAB PHCAI(LOINC 7.320-7.420 ) pH 7.381 LAB CAPH(LOINC) 4.36-4.73 mg/dL Low Ionized 3.78 Ca,PH7.4 Performed By: #### IONCA #### [facility] [address] [place] [address] MAGNESIUM BLOOD Collected: 12/13/2017 Status: F Source: [facility] 11:30 PM HEALTH SYSTEM REPOSITORY TYPE CODE TESTS RESULT OUT OF REFERENCE UNITS RANGE LAB MAG(LOINC) 1.6-2.6 mg/dL Magnesium Blood 1.6 Performed By: #### MAG #### [place] [address] PHOSPHORUS BLOOD Collected: 12/13/2017 Status: F Source: [facility] 11:30 PM HEALTH SYSTEM REPOSITORY TYPE CODE TESTS RESULT OUT OF REFERENCE UNITS RANGE LAB PHOS(LOINC 2.5-4.9 mg/dL ) Low Phosphorus Blood 2.1 Performed By: #### PHOS #### [place] [address] LD,TOTAL BLOOD Collected: 12/13/2017 Status: F Source: [facility] 11:30 PM HEALTH SYSTEM REPOSITORY TYPE CODE TESTS RESULT OUT OF RANGE REFERENCE UNITS LAB LDH(LOINC) 84-246 U/L LD,Total 127 Blood Performed By: #### LDH #### [place] [address] TOTAL PROTEIN Collected: 12/13/2017 Status: F Source: [facility] 11:30 PM HEALTH SYSTEM REPOSITORY TYPE CODE TESTS RESULT OUT OF REFERENCE UNITS RANGE LAB TP(LOINC) 6.4-8.2 g/dL Low Total Protein 6.3 Performed By: #### TP #### [place] [address] PROGRESS Observed: 12/13/2017 Status: COMPLETED Source: [facility] 10:53 PM CLINIC OTHER CAMPUS REPOSITORY O ID: [id number] Author: Luisa Lim Service: Hospital Medicine Author [...] metoprolol and amiodarone since admission. States at [facility] has been having some irregular heart rates, not sure if A-fib. Per previous records from telecommunications specialist may have Hx of PAF in the [...] NURSING PROG Observed: 12/13/2017 Status: COMPLETED Source: [facility] 9:47 PM CLINIC OTHER CAMPUS REPOSITORY HNO ID: [id number] Author: Bhavya (Rn) ELI Forrest Service: Nursing Author Type: Registered Nurse Type: Nursing Progress Note Filed: 12/13/2017 9:48 PM Note Text: Nursing Progress Note Patient Name: Michael Garcia Patient Location: [place] [address] [address]* Daily Note: Spoke with [facility] regarding patient now AFib on tele, HR ranging between 100's to 140's. States they will be up to see the patient. This note was completed by: Bhayva Forrest RN GLUCOSE METER Collected: 12/13/2017 Status: F Source: [facility] 8:06 PM HEALTH SYSTEM REPOSITORY TYPE CODE TESTS RESULT OUT OF REFERENCE UNITS RANGE LAB GLUBL(LOINC 70-99 mg/dL ) High Glucose Meter 149 Result Comment: RN NOTIFIED Performed By: #### GLMET #### [place] [address] GLUCOSE METER Collected: 12/13/2017 Status: F Source: [facility] 7:03 PM HEALTH SYSTEM REPOSITORY TYPE CODE TESTS RESULT OUT OF REFERENCE UNITS RANGE LAB GLUBL(LOINC 70-99 mg/dL ) High Glucose Meter 102 Result Comment: RN NOTIFIED Performed By: #### GLMET #### [facility] [address] [place], [place] [address] NURSING PROG Observed: 12/13/2017 Status: COMPLETED Source: [facility] 7:00 PM CLINIC OTHER CAMPUS REPOSITORY HNO ID: [id number] Author: Manju Watkins (Rn) ELI Quiroga Service: Dialysis Author Type: Registered Nurse Type: Nursing Progress Note Filed: 12/13/2017 8:08 PM Note Text: HEMODIALYSIS TX COMPLETED PAULA WELL STABLE -2000 ML OFF SEE FLOW SHEET FOR DETAILS CONSULT Observed: 12/13/2017 Status: COMPLETED Source: [facility] 3:42 PM CLINIC OTHER CAMPUS REPOSITORY HNO ID: [id number] Author: Nidia Jones MD Service: Nephrology Author [...] and HPLD. Patient was admitted recently to [facility] with pneumonia and UTI. Her hospital stay was complicated with JORGE on CKD . Initially JORGE was contributed to [facility] from sepsis with Afib and RVR. Patient was started on HD. So far had 5 sessions of HD. Last HD session was yesterday but was aborted early because she was told to come to [facility] to [facility] . Patient was found [...] Type 2 diabetes mellitus with renal manifestations ([facility]) 01/19/2016 Dr. Romeo, nephrology - Umbilical hernia without obstruction and without gangrene 01/19/2016 PAST SURGICAL HISTORY Procedure Laterality Date - ACHILLES TENDON SURGERY HX Right 1995 - BREAST BIOPSY CORE Left 2013 benign - [facility] Colon[facility] w/bx [facility] - EGD W/O OR W/BRUSH/WASH 10/27/2017 EGD w/bx [facility] - LAPAROSCOPIC CHOLEYCYSTECTOMY Cholecystectomy, lap - [...] Will continue to follow Nidia Jones MD [phone] GLUCOSE METER Collected: 12/13/2017 Status: F Source: [facility] 10:42 AM HEALTH SYSTEM REPOSITORY TYPE CODE TESTS RESULT OUT OF REFERENCE UNITS RANGE LAB GLUBL(LOINC 70-99 mg/dL ) High Glucose Meter 253 Result Comment: RN NOTIFIED Performed By: #### GLMET #### [facility] [address] [place] [address] PROCALCITONIN Collected: 12/13/2017 Status: F Source: [facility] 9:05 AM HEALTH SYSTEM REPOSITORY TYPE CODE [...] procalcitonin elevations. Performed By: #### PRCAS #### [place] [id number] PROGRESS Observed: 12/13/2017 Status: COMPLETED Source: [facility] 8:25 AM CLINIC OTHER CAMPUS REPOSITORY O ID: [id number] Author: Jordyn Decker (Arun) Jose Alfredo Service: [...] work up in progress as outlined below. [facility] DAILY PROGRESS NOTE SERVICE DATE: 12/13/2017 SERVICE [...] December 13, 2017 TIME: 8:26 AM Pager: [phone] GLUCOSE METER Collected: 12/13/2017 Status: F Source: [facility] 6:25 AM HEALTH SYSTEM REPOSITORY TYPE CODE TESTS RESULT OUT OF REFERENCE UNITS RANGE LAB GLUBL(LOINC 70-99 mg/dL ) High Glucose Meter 208 Performed By: #### GLMET #### [facility] [address] [place] [address] CHEST 1 VIEW Observed: 12/13/2017 Status: F Source: [facility] 3:38 AM HEALTH SYSTEM REPOSITORY Performed at [facility] APPROVED BY: MARION WYATT MD CHEST RADIOGRAPH [...] chest PROGRESS Observed: 12/13/2017 Status: COMPLETED Source: [facility] 3:08 AM CLINIC OTHER CAMPUS REPOSITORY HNO ID: [id number] Author: Yared Reynolds Service: General Internal Medicine [...] she has no history of CAD or [place]. I was able to exaggerate the discomfort [...] visits. HEMOGRAM Collected: 12/13/2017 Status: F Source: [facility] 3:05 AM HEALTH SYSTEM REPOSITORY TYPE CODE [...] MPV 9.9 Performed By: #### CBC1 #### [place] [address] TROPONIN I Collected: 12/13/2017 Status: F Source: [facility] 3:[facility] REPOSITORY TYPE CODE TESTS RESULT OUT OF REFERENCE UNITS RANGE LAB TROP(LOINC) 0.015-0.045 ng/ml Troponin I 0.016 Performed By: #### TROP #### [place] [address] BASIC PANEL Collected: 12/13/2017 Status: F Source: [facility] [address] SYSTEM REPOSITORY TYPE CODE TESTS RESULT [...] Gap 9 Performed By: #### P8 #### [place] [address] MDRD GFR Collected: 12/13/2017 Status: F Source: [address] SYSTEM REPOSITORY TYPE CODE TESTS RESULT OUT OF RANGE REFERENCE UNITS LAB GFRFN(LOINC >60mL/min/1.73m ) 2 eGFR 12.11 Result Comment: If the patient is , multiply the result by 1.210. Performed By: #### GFR #### [address] [address] NURSING PROG Observed: 12/13/2017 Status: COMPLETED Source: [facility] 2:50 AM [facility] REPOSITORY HNO ID: [id number] Author: Michell (Rn) ELI Ríos Service: Nursing [...] arms or back; no nausea. VS charted. [facility] paged - resident on their way to the floor to evaluate pt. GLUCOSE METER Collected: 12/12/2017 Status: F Source: [facility] 7:52 PM HEALTH SYSTEM REPOSITORY TYPE CODE TESTS RESULT OUT OF REFERENCE UNITS RANGE LAB GLUBL(LOINC 70-99 mg/dL ) High Glucose Meter 254 Result Comment: RN NOTIFIED Performed By: #### GLMET #### [place] [address] NURSING PROG Observed: 12/12/2017 Status: COMPLETED Source: [facility] 6:29 PM [facility] REPOSITORY HNO ID: [id number] Author: Yvonne (Rn) ELI Martinez Service: (none) Author Type: Registered Nurse Type: Nursing Progress Note Filed: 12/12/2017 6:32 PM Note Text: Nursing Progress Note Patient Name: Michael Garcia Patient Location: [place] [address] [address]* Daily Note: 1527 Pt arrived to unit from home with family on supplemental O2. VSS. Admission assessment completed, page out to sound (dr worley admitting) 1550 Spoke with sound, trying to transfer patient to [facility]? Will await further instruction. 1600 Pt wants to spend the night, pt in semi-private room. Spoke with [facility], pt okay to move to [phone] when clean. 1630 Sound and house med on unit, pt being transferred to house med service 1830 Orders placed for patient. Insulin scheduled q6 not achs? Page out to [facility] This note was completed by: Yvonne Martinez RN HISTORY PHYSICAL Observed: 12/12/2017 Status: COMPLETED Source: [facility] 5:10 PM CLINIC OTHER CAMPUS REPOSITORY HNO ID: [id number] Author: Lori Yadavij Service: Hospital Medicine Author [...] HISTORY Diagnosis Date - Cerebellar hemorrhage, acute ([facility]) 04/04/2016 - CKD (chronic kidney disease) stage 3, GFR 30-59 ml/min 04/04/2016 - CREST variant of scleroderma ([facility]) 04/04/2016 - Diabetic peripheral neuropathy associated with type 2 diabetes mellitus ([facility]) 01/19/2016 - Essential hypertension with goal blood pressure less than 130/85 01/19/2016 - Hyperlipidemia 01/19/2016 - Ischemic ulcer of finger with necrosis of muscle ([facility]) 01/19/2016 Left 3rd finger tip - Lazy eye of left side 1950s - Legally blind 01/19/2016 - Primary osteoarthritis of right knee 01/19/2016 - Retinal hemorrhage of right eye 2007 - S/P craniotomy 04/04/2016 - Type 2 diabetes mellitus with renal manifestations ([facility]) 01/19/2016 Dr. Romeo, nephrology - Umbilical hernia without obstruction and without gangrene 01/19/2016 PAST SURGICAL HISTORY Procedure Laterality Date - ACHILLES TENDON SURGERY HX Right 1995 - BREAST BIOPSY CORE Left 2013 benign - [facility] Colon[facility] w/bx [facility] - EGD W/O OR W/BRUSH/WASH 10/27/2017 EGD w/bx [facility] - LAPAROSCOPIC CHOLEYCYSTECTOMY Cholecystectomy, lap - [...] ventilatory defct detected on PFT 2016 at [facility] - also complicated with left sided pleural effusion, was supposed to have thoracentesis done at [facility], will check CXR, and order afterwards IR [...] 12, 2017 TIME: 5:10 PM PAGER/CONTACT #: [phone] HEMOGRAM/DIFF Collected: 12/12/2017 Status: F Source: [facility] 4:20 PM HEALTH SYSTEM REPOSITORY TYPE CODE [...] 0.74 LAB MONON(LOIN 0.27-0.70 thou/cmm C) Abs. Grant 0.57 LAB EOSN(LOINC 0.00-0.31 thou/cmm ) Abs. Eosin 0.10 LAB BASON(LOIN 0.01-0.08 thou/cmm C) Abs. Baso 0.03 Performed By: #### CBCD1 #### [facility] [address] [address] COMPREHENSIVE PANEL Collected: 12/12/2017 Status: F Source: [facility] 4:20 PM HEALTH SYSTEM REPOSITORY TYPE CODE [...] Gap 9 Performed By: #### P14 #### [facility] [address] [address] PHOSPHORUS BLOOD Collected: 12/12/2017 Status: F Source: [facility] 4:20 PM HEALTH SYSTEM REPOSITORY TYPE CODE TESTS RESULT OUT OF REFERENCE UNITS RANGE LAB PHOS(LOINC 2.5-4.9 mg/dL ) High Phosphorus Blood 5.0 Performed By: #### PHOS #### [facility] [address] [address] MAGNESIUM BLOOD Collected: 12/12/2017 Status: F Source: [facility] 4:20 PM HEALTH SYSTEM REPOSITORY TYPE CODE TESTS RESULT OUT OF REFERENCE UNITS RANGE LAB MAG(LOINC) 1.6-2.6 mg/dL Magnesium Blood 2.3 Performed By: #### MAG #### [facility] [address] [address] MDRD GFR Collected: 12/12/2017 Status: F Source: [facility] 4:20 PM HEALTH SYSTEM REPOSITORY TYPE CODE TESTS RESULT OUT OF RANGE REFERENCE UNITS LAB GFRFN(LOINC >60mL/min/1.73m ) 2 eGFR 14.16 Result Comment: If the patient is , multiply the result by 1.210. Performed By: #### GFR #### [facility] [address] [address] HGB A1C Collected: 12/12/2017 Status: F Source: [facility] 4:20 PM HEALTH SYSTEM REPOSITORY TYPE CODE TESTS RESULT OUT OF RANGE REFERENCE UNITS LAB A1C5(LOINC) 4.2-6.3 % High Hgb A1c 7.6 Result Comment: Method is National Glycohemoglobin Standardization Program (NGSP) compliant. LAB ESAVG(LOINC) mg/dl Est. Avg Glucose 171 Performed By: #### HA1C #### [facility] [address] [address] GLUCOSE METER Collected: 12/12/2017 Status: F Source: [facility] 3:55 PM HEALTH SYSTEM REPOSITORY TYPE CODE TESTS RESULT OUT OF REFERENCE UNITS RANGE LAB GLUBL(LOINC 70-99 mg/dL ) High Glucose Meter 178 Result Comment: RN NOTIFIED Performed By: #### GLMET #### [facility] [address] [address] HOSP Observed: 12/12/2017 Status: COMPLETED Source: [facility] 12:00 AM CLINIC OTHER CAMPUS REPOSITORY Patient:Michael Garcia MRN: <[id number]> Height:5' 5(1.651 m) Weight:217 lb 2.5 oz [...] acting) (HumaLOG KWIKPEN) fluticasone 50 mcg/actuation 1 [place] (FLONASE) pill splitter (patient-specific) atorvastatin 40 mg [...] S/P craniotomy [Z98.890] CREST variant of scleroderma ([facility]) [M34.1] CKD (chronic kidney disease) stage 3, GFR 30-59 ml/min [N18.3] Hypoxemia [R09.02] Acute diastolic CHF (congestive heart failure) ([facility]) [I50.31] Anemia in stage 3 chronic kidney disease [N18.3, D63.1] JORGE (acute kidney injury) ([facility]) [N17.9] Allergies: No Known Allergies Date Verified:12/16/17 [...] ml/min 04/04/2016 - CREST variant of scleroderma ([facility]) 04/04/2016 - Diabetic peripheral neuropathy associated with type 2 diabetes mellitus ([facility]) 01/19/2016 - Essential hypertension with goal blood pressure less than 130/85 01/19/2016 - Hyperlipidemia 01/19/2016 - Ischemic ulcer of finger with necrosis of muscle ([facility]) 01/19/2016 Left 3rd finger tip - Lazy eye of left side - Legally blind 01/19/2016 - Primary osteoarthritis of right knee 01/19/2016 - Retinal hemorrhage of right eye 2007 - S/P craniotomy 04/04/2016 - Type 2 diabetes mellitus with renal manifestations ([facility]) 01/19/2016 Dr. Romeo, nephrology - Umbilical hernia without obstruction and without gangrene 01/19/2016 PAST SURGICAL HISTORY Procedure Laterality Date - ACHILLES TENDON SURGERY HX Right 1995 - BREAST BIOPSY CORE Left 2013 benign - [facility]2017 Colonoscopy w/bx [facility] - EGD W/O OR W/BRUSH/WASH 10/27/2017 EGD w/bx [facility] - LAPAROSCOPIC CHOLEYCYSTECTOMY Cholecystectomy, lap - [...] ventilatory defct detected on PFT 2016 at [facility] - also complicated with left sided pleural effusion, was supposed to have thoracentesis done at [place], will check CXR, and order afterwards IR [...] Signed Nursing Progress Note Patient Name: Michael aGrcia Patient Location: [place] [address]/[place] [id number]* Daily Note: 1527 Pt arrived to unit from home with family on supplemental O2. VSS. Admission assessment completed, page out to [facility] (dr worley admitting) 1550 Spoke with [facility], trying to transfer patient to [facility]? Will await further instruction. 1600 Pt wants to spend the night, pt in semi-private room. Spoke with [facility], pt okay to move to 81 when clean. 1630 [facility] and house med on unit, pt being transferred to [facility] 1830 Orders placed for patient. Insulin scheduled q6 not achs? Page out to [facility] This note was completed by: Yvonne Martinez, RN January ELI Ríos, RN 12/13/2017 3:17 AM Signed Pt c/o chest pain. States she woke up to it around 230a. Tech states pt walked to the bathroom without difficulty. Pt describes it as a dull, heavy feeling across her entire chest. No pain radiating to arms or back; no nausea. VS charted. [facility] paged - resident on their way [...] she has no history of CAD or [place]. I was able to exaggerate the discomfort [...] Amiodarone 2/2 pulm HTN - records from [facility] reviewed, not on anticoagulation 2/2 anemia and hx of intra cerebral bleed ? CREST Constipation - Will add senna ? PAD - Continue ASA, Statin ? INES - CPAP at night ? Nasal pressure ulcer (POA) 2/2 cpap mask ? DVT PPX - Lovenox renal dose SIGNATURE: Jordyn Veliz MD PATIENT NAME: Michael Garcia DATE: December 13, 2017 TIME: 8:26 AM Pager: [phone] Previous Version Nidia Jones MD, MD 12/13/2017 [...] and HPLD. Patient was admitted recently to [facility] with pneumonia and UTI. Her hospital stay was complicated with JORGE on CKD . Initially JORGE was contributed to [facility] from sepsis with Afib and RVR. Patient was started on HD. So far had 5 sessions of HD. Last HD session was yesterday but was aborted early because she was told to come to [facility] to PEX . Patient was found [...] Type 2 diabetes mellitus with renal manifestations ([facility]) 01/19/2016 Dr. Romeo, nephrology - Umbilical hernia without obstruction and without gangrene 01/19/2016 PAST SURGICAL HISTORY Procedure Laterality Date - ACHILLES TENDON SURGERY HX Right 1995 - BREAST BIOPSY CORE Left 2013 benign - [facility] 10/[facility]2017 Colonoscopy w/bx [facility] - EGD W/O OR W/BRUSH/WASH 10/27/2017 EGD w/bx [facility] - LAPAROSCOPIC CHOLEYCYSTECTOMY Cholecystectomy, lap - [...] Will continue to follow Nidia Jones MD [phone] Manju Quiroga, RN, RN 12/13/2017 8:08 PM Signed HEMODIALYSIS TX COMPLETED PAULA WELL STABLE -2000 ML OFF SEE FLOW SHEET FOR DETAILS Bhavya Forrest, RN, RN 12/13/2017 9:48 PM Signed Nursing Progress Note Patient Name: Michael Garcia Patient Location: [id number]/[facility]01-521* Daily Note: Spoke with [facility] regarding patient now AFib on tele, [...] metoprolol and amiodarone since admission. States at [facility] has been having some irregular heart rates, not sure if A-fib. Per previous records from telecommunications specialist may have Hx of PAF in the [...] Note Patient Name: Michael Garcia Patient Location: [id number]/[id number]* Daily Note: Patient was found sleeping without BiPAP mask on, was found to be 62% on room air. BiPAP was placed back on and pulled up in bed. Oxygen back to 94% on BiPAP, instructed to not remove mask when sleeping. Patient agreeable, will continue to monitor. This note was completed by: ELI uBrns CNP, PLANT FACILITIES TECHNICIAN 12/14/2017 11:02 AM Attested Addendum Attestation signed by Echo Fernandes at 12/15/2017 9:40 AM [facility] STAFF PHYSICIAN NOTE OF PERSONAL INVOLVEMENT IN [...] Pulmonary will follow SIGNATURE: Echo Fernandes MD [facility] DATE of SERVICE: december 14, [...] in July and once just recently at [place] (admitted 11/27 - 12/08 and treated for [...] HISTORY Diagnosis Date - Cerebellar hemorrhage, acute ([facility]) 04/04/2016 - CKD (chronic kidney disease) stage 3, GFR 30-59 ml/min 04/04/2016 - CREST variant of scleroderma ([facility]) 04/04/2016 - Diabetic peripheral neuropathy associated with type 2 diabetes mellitus ([facility]) 01/19/2016 - Essential hypertension with goal blood pressure less than 130/85 01/19/2016 - Hyperlipidemia 01/19/2016 - Ischemic ulcer of finger with necrosis of muscle ([facility]) 01/19/2016 Left 3rd finger tip - Lazy eye of left side 1949s - Legally blind 01/19/2016 - Primary osteoarthritis of right knee 01/19/2016 - Retinal hemorrhage of right eye 2007 - S/P craniotomy 04/04/2016 - Type 2 diabetes mellitus with renal manifestations ([facility]) 01/19/2016 Dr. Romeo, nephrology - Umbilical hernia without obstruction and without gangrene 01/19/2016 PAST SURGICAL HISORY PAST SURGICAL HISTORY Procedure Laterality Date - ACHILLES TENDON SURGERY HX Right 1995 - BREAST BIOPSY CORE Left 2013 benign - [facility] 10/27/2017 Colonoscopy w/bx [facility] - EGD W/O OR W/BRUSH/WASH 10/27/2017 EGD w/bx [facility] - LAPAROSCOPIC CHOLEYCYSTECTOMY Cholecystectomy, lap - [...] AT BEDTIME Bianca Ayalauso 1 tablet at 12/13/172056 insulin glargine 39 [...] k/uL No recent new micro found in [facility] RADIOLOGY FILMS: CXR 12/13/17: 1. Lines, Tubes, [...] 51% No PSGs / PFTs found in [facility] ? VITALS: BP 119/65 Pulse 64 Temp [...] OP follow up with Dr. Valencia in [place]. 5. Suspected Acute on chronic diastolic heart [...] 10. Recent LLL Pneumonia - treated at [facility] with Zosyn AND Levaquin 11. MMP - per primary 12. Further evaluation with attending to follow. SIGNATURE: Umu Rios CNP PATIENT NAME: Michael Garcia DATE: December 14, 2017 TIME: 8:35 AM PAGER/CONTACT #: [phone] ? Attestation signed by Echo Fernandes at 12/14/2017 10:16 AM to a previous version PULMONARY PROGRESS NOTE [facility] SERVICE DATE: December 14, 2017 SERVICE TIME: 10:04 AM Subjective 72yr old female admitted with JORGE/CKD and ANCA vasculitis. Started on plasmapheresis. Patient c/o significant shortness of breath and stuffy nose. Denies any wheezing, cough, phlegm, chest pain, fevers or chills. OBJECTIVE Current Facility-Administered Medications: fluticasone 50 mcg/actuation 1 [place] (FLONASE) 1 [place] EACH NOSTRIL DAILY Umu Rios CNP loratadine [...] problems. pulmonary will follow SIGNATURE: Echo Fernandes MD,[facility] PATIENT NAME: Michael Garcia DATE: December 14, 2017 TIME: 10:04 AM PAGER/CONTACT #: [phone] Previous Version Jordyn Veliz MD 12/14/2017 12:54 [...] Amiodarone 2/2 pulm HTN - records from [place] reviewed, not on anticoagulation 2/2 anemia and hx of intra cerebral bleed ? CREST Constipation - Will add senna ? PAD - Continue ASA, Statin ? INES - CPAP at night ? Nasal pressure ulcer (POA) 2/2 cpap mask ? DVT PPX - Lovenox renal dose SIGNATURE: Jordyn Veliz MD PATIENT NAME: Michael Garcia DATE: December 14, 2017 TIME: 8:26 AM Pager: [phone] Nabila Cartagena, ELI, RN 12/14/2017 4:15 PM Signed Nursing Progress Note Patient Name: Michael Garcia Patient Location: [place] [address]/[facility]48[facility]* Pt c/o 04/14 heavy chest pain. Spoke with Dr Veliz by phone who stated she would come see the pt This note was completed by: ELI Matos MD, MD 12/14/2017 2:18 PM Signed CONSULT PROGRESS NOTE NEPHROLOGY SERVICE Following for JORGE on HD No complaints today No nausea No vomiting No SOB No CP MEDICATIONS: Current hospital medications: fluticasone 50 mcg/actuation 1 [place] (FLONASE) 1 [place] EACH NOSTRIL DAILY loratadine 10 mg tab(s) [...] to follow ? ? Nidia Jones MD [phone] ? Teresa Palacio PLANT FACILITIES TECHNICIAN, PLANT FACILITIES TECHNICIAN 12/15/2017 8:36 AM Attested Addendum Attestation signed by Raimundo Wall at 12/15/2017 9:18 AM [facility] STAFF PHYSICIAN NOTE OF PERSONAL INVOLVEMENT IN [...] Current Facility-Administered Medications: fluticasone 50 mcg/actuation 1 [place] (FLONASE) 1 [place] EACH NOSTRIL DAILY Umu (Turner Machine) Gabriel, PLANT FACILITIES TECHNICIAN 1 [place] at 12/14/17 1211 loratadine 10 mg tab(s) (CLARITIN) 10 mg ORAL DAILY Umu (Turner Machine) Gabriel, PLANT FACILITIES TECHNICIAN 10 mg at 12/14/17 1210 pill splitter [...] Luisa (Res) Sharkhatunyan 1 application at 12/13/17 4376 albuterol HFA 90 mcg/actuation 2 Puff (PROVENTIL [...] LABS/MICRO DATA/RADIOLOGY FILMS NO MICROBIOLOGY DATA BNP 98023 PROCALCITONIN 0.29 BMP: Glucose (mg/dL) Date Value [...] OP follow up with Dr Valencia in [place]. 5) Acute on Chronic Diastolic HF with [...] 15, 2017 TIME: 8:16 AM PAGER/CONTACT #: [phone] Previous Version Frances Piña, PT, PT 12/15/2017 8:56 AM Signed Physical Therapy Evaluation SERVICE DATE: 12/15/2017 SERVICE TIME: 804 to 834 ROOM: [place] [address] Recommended Discharge Disposition: Home PT Anticipated Discharge [...] gait and mobility-other Interventions Provided: Evaluation;Gait Training (98208) $ Evaluation-Moderate (38869) Billed Units: 1 unit Gait Training (12251) Treatment Minutes: 8 1 unit Skilled Intervention(s): [...] verbal cues for proper hand placement during xpy-zo-joxrp transfers Patient set up in chair with [...] Problems Diagnosis - JORGE (acute kidney injury) ([facility]) PAST MEDICAL HISTORY Diagnosis Date - Cerebellar hemorrhage, acute ([facility]) 04/04/2016 - CKD (chronic kidney disease) stage 3, GFR 30-59 ml/min 04/04/2016 - CREST variant of scleroderma ([facility]) 04/04/2016 - Diabetic peripheral neuropathy associated with type 2 diabetes mellitus ([facility]) 01/19/2016 - Essential hypertension with goal blood pressure less than 130/85 01/19/2016 - Hyperlipidemia 01/19/2016 - Ischemic ulcer of finger with necrosis of muscle ([facility]) 01/19/2016 Left 3rd finger tip - Lazy eye of left side 1949s - Legally blind 01/19/2016 - Primary osteoarthritis of right knee 01/19/2016 - Retinal hemorrhage of right eye 2007 - S/P craniotomy 04/04/2016 - Type 2 diabetes mellitus with renal manifestations ([facility]) 01/19/2016 Dr. Romeo, nephrology - Umbilical hernia without obstruction and without gangrene 01/19/2016 PAST SURGICAL HISTORY Procedure Laterality Date - ACHILLES TENDON SURGERY HX Right 1995 - BREAST BIOPSY CORE Left 2013 benign - [facility] Colonoscopy w/bx [facility] - EGD W/O OR W/BRUSH/WASH 10/27/2017 EGD w/bx [facility] - LAPAROSCOPIC CHOLEYCYSTECTOMY Cholecystectomy, lap - [...] Environment Patient Lives With: Significant Other ([employer]) Assistance Available: 24 Hour Entry To Home: [...] 15, 2017 TIME: 8:50 AM PAGER/CONTACT #: [phone] Vani Hodge MD 12/15/2017 9:47 PM Signed [facility] DAILY PROGRESS NOTE SERVICE DATE: 12/15/2017 SERVICE TIME: 8:26 AM This is a 72 year old female with PMHx of CREST, HTN, CAD, Chronic respiratory failure on 3.5 L home O2 and T2DM with recent hospital admission for PNA, UTI, new onset Afib, c.diff, and JORGE requiring HD admitted currently per recommendation from machinist outside for evaluation and management of p ANCA [...] INTRAVENOUS PRN(NO DISPENSE) fluticasone 50 mcg/actuation 1 [place] (FLONASE) 1 [place] EACH NOSTRIL DAILY loratadine 10 mg tab(s) [...] Amiodarone 2/2 pulm HTN - records from [place] reviewed, not on anticoagulation 2/2 anemia and hx of intra cerebral bleed ? CREST Constipation - on senna ? PAD - Continue ASA, Statin ? INES - CPAP at night ? Nasal pressure ulcer (POA) 2/2 cpap mask ? DVT PPX - Lovenox renal dose SIGNATURE: Jordyn Veliz MD PATIENT NAME: Michael Garcia DATE: December 15, 2017 TIME: 8:26 AM Pager: [phone] Transferred to my service Chart reviewed Evaluated independently Discussed with Dr. Veliz and agree with above notes which reflect my input with following additions Awaiting for renal biopsy Discussed with patient Attestation signed by Vani Hodge MD [facility] Attending December 15, 2017 9:46 PM Previous [...] OF PRESENT ILLNESS: Patient has been at [facility] since Friday night. Patient reports that she was at a hospital in [place] being treated for pneumonia and UTI and was receiving HD at that time for JORGE. The pt. was instructed to come of [facility] for kidney biopsy. Pt. Will undergo [...] INTRAVENOUS PRN(NO DISPENSE) fluticasone 50 mcg/actuation 1 [place] (FLONASE) 1 [place] EACH NOSTRIL DAILY loratadine 10 mg tab(s) [...] DATE: 12/15/17 NAME: Michael Garcia LOG ID: [id number] Pre-Procedure Diagnosis: Renal failure Post Procedure Diagnosis: Same. Retort Firer: Dr. Manuel Mcgee (Primary) Procedure: Biopsy Anesthesia: [...] ALLERGIES No Known Allergies Preferred Pharmacy: [facility] ([phone]) or [facility] ([phone]) Current HEEL SEAT FITTER MACHINE Medications: Prior to Admission medications as of [...] oxygen Dx: Hypoxemia. R09.02. 3 LPM via NH continuous. ergocalciferol, vitamin D2, (VITAMIN D) 50,000 unit capsule Take 1 capsule by mouth once every month. albuterol HFA (VENTOLIN HFA) 90 mcg/actuation inhaler Inhale 2 Puffs as instructed every 4 hours as needed for Wheezing/Shortness of Breath. Padma Bangura (Email Deployment Specialist) December 15, 2017 3:03 PM I discussed medication history with retail pharmacy manager. I removed a duplicate vitamin D order from the patient's medication list. BELINDA RICE, PHARMACIST 4:27 PM Previous Version Liv Fuller, RN, RN 12/15/2017 3:29 PM Addendum CARE MANAGEMENT: ASSESSMENT AND DISCHARGE PLAN SERVICE DATE: 12/15/2017 SERVICE TIME: 5 PRIMARY CARE PHYSICIAN: Mat Duffy MD ADMISSION STATUS: Inpatient Needs Prior to Discharge: To Be Determined;OT/PT Evaluation;Pharmacy Bedside Delivery MEDICAL: 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 Senior Living Equipment Prior to Admission: Walker, home O2 3.5 liters nc , rollator, transport chair, shower seat, grab bars Has the Patient Been in a Senior Living Facility in the Past 30 days? No [...] 0 I feel financially burdened by my ubm-gc-jluofp expenses for my prescription medication: Disagree completely [...] a dialysis pt. [facility] [place] [facility]. Chair time 0600. SIGNATURE: Liv Fuller RN PATIENT NAME: Michael Garcia DATE: December 15, 2017 TIME: 3:15 PM PAGER/CONTACT #: [phone] Previous Version Umu Rios CNP, CNP 12/16/2017 8:34 AM Attested Attestation signed by Raimundo Wall at 12/16/2017 9:04 AM [facility] STAFF PHYSICIAN NOTE OF PERSONAL INVOLVEMENT IN [...] (Res) Jose Alfredo fluticasone 50 mcg/actuation 1 [place] (FLONASE) 1 [place] EACH NOSTRIL DAILY Umu Hyatt) JULIO C Rios 1 [place] at 12/15/17 0855 pill splitter (patient-specific) 1 [...] LABS/MICRO DATA/RADIOLOGY FILMS NO MICROBIOLOGY DATA BNP 00578 PROCALCITONIN 0.29 BMP: Glucose (mg/dL) Date Value [...] OP follow up with Dr. Valencia in [place]. May eventually need [facility]. 5) Acute on [...] to follow up with Dr. Valencia in [place] as outlined above. SIGNATURE: Umu Rios CNP PATIENT NAME: Michael Garcia DATE: December 16, 2017 TIME: 8:13 AM PAGER/CONTACT #: [phone] Laura Castillo, RN, RN 12/16/2017 8:46 AM Signed Continuous pulse ox discontinued per pulm orders. Roxann Harry, RN, RN 12/16/2017 8:52 AM Signed BAIL AGENT NOTE SERVICE DATE: 12/16/2017 SERVICE TIME: 8:51 AM Referral: Home Care referral received by: RO Patient is active with [place] [facility] agency for skilled care Will [...] OF PRESENT ILLNESS: Patient has been at [facility] since Friday night. The Patient reports [...] SUBCUTANEOUS w MEALS fluticasone 50 mcg/actuation 1 [place] (FLONASE) 1 [place] EACH NOSTRIL DAILY pill splitter (patient-specific) 1 [...] Prophylaxis: Intermittent pneumatic compression device (IPCD) SIGNATURE: eFroz Moody Ms PATIENT NAME: Michael Garcia DATE: [...] change catheter Will monitor closely Progress Notes ([facility]): Rose Crespo RN 12/11/2017 11:01 AM Signed 1) [facility] HH- reports patient was discharged from hospital [...] 5:09 PM Signed Pt was admitted to [facility] today. Discard note. PROGRESS Observed: 12/10/2017 Status: COMPLETED Source: [place] 4:50 PM [facility] REPOSITORY O ID: [id number] Author: Simin Villarreal Service: (none) Author Type: Registered Nurse Type: Progress Notes Filed: 12/12/2017 5:09 PM Note Text: PRIMARY CARE COORDINATION QUICK NOTE Provider Action/FYI Pt admitted to [facility] this afternoon due to kidney inflammation per . Patient identified by name and date . Pt was home but after dialysis, she was sent to [facility] for admission. No notes available yet- will follow for D/C. Simin Villarreal RN Ambulatory Screen Handler Internal Medicine [facility] 12 LEAD ELECTROCARDIOGRAM Observed: 12/10/2017 Status: F Source: [place] 1:47 PM [facility] REPOSITORY [facility] Cardiovascular Services [address] [place] [address] 12 Lead EKG 12/05/17 2314 MR#: [id number] Acct: [id number] Name: MICHAEL GARCIA Rep #: [id number] : 1945 72 From: Darien Mcclendon MD [...] UNCONFIRMED Confirmed by DARIEN MCCLENDON MD ([id number]), photograph editor HONORIO SHEFFIELD ([id number]) on 12/10/2017 1:47:12 PM Referred By: SANDEE Confirmed By:DARIEN MCCLENDON MD 12/10/17 1347 Date Darien Mcclendon MD CC: Naun Wilhelm MD; Mat Duffy MD Signed 12 LEAD ELECTROCARDIOGRAM Observed: 12/10/2017 Status: F Source: [place] 1:24 PM [facility] - [place] [facility]POSITORY [facility] Cardiovascular Services [address] [place] [address] 12 Lead EKG 12/03/17 0349 MR#: [id number] Acct: [id number] Name: MICHAEL GARCIA Rep #: [id number] : 1945 72 From: Darien Mcclendon MD Attending Dr: Irene Wilson MD Status: DIS IN Ordering Dr: Jeevan Machado MD Date: 12/05/17 Location: [facility] Sex: F C Admitted: 11/27/17 Test Reason [...] IS UNCONFIRMED Confirmed by DANELLE LOONEY, DARIEN ([id number]), photograph editor HONORIO SHEFFIELD ([id number]) on 12/10/2017 1:24:32 PM Referred By: DR AGUDELO Confirmed By:DARIEN MCCLENDON MD 12/10/17 1324 Date Darien Mcclendon MD CC: Jeevan Machado MD; Mat Duffy MD Signed [facility] Observed: 12/10/2017 Status: COMPLETED Source: [place] 12:00 AM [facility] REPOSITORY Patient Outreach (INTMWS) MICHAEL GARCIA ([id number]) 1945 F BLD Date Time Provider Department 12/10/17 SIMIN AQUINOWS During your visit today, we recorded the following information about you: Simin Duarte RN 12/12/2017 5:09 PM Signed PRIMARY CARE COORDINATION QUICK NOTE Provider Action/FYI Pt admitted to [facility] this afternoon due to ANDquot;kidney inflammationANDquot; per . Patient identified by name and date . Pt was home but after dialysis, she was sent to [facility] for admission. No notes available yet- will follow for D/C. Simin Villarreal RN Ambulatory Screen Handler Internal Medicine [facility] Allergies As of Date: 12/10/2017 (No Known Allergies) Date Reviewed: 11/14/2017 Reviewed by: Evangelina Mckeon) - Fully Assessed Reason for Visit: Screen Handler Hospital Follow Up [3615] Cmt: [facility] 11/27/17- 12/09/17 Prescriptions as of 12/10/2017 [...] DISCHARGE SUMMARY Observed: 12/09/2017 Status: F Source: [place] 3:34 PM [facility] [place] REPOSITORY [facility] Medical Records Department [address] [place] [address] Discharge Summary 12/09/17 1511 MR#: [id number] Acct: [id number] Name: MICHAEL GARCIA Rep #: [id number] : 1945 72 From: Irene Wilson MD PCP: Mat Duffy MD Status: ADM IN Y Location: [place] [address] Discharge Date and Diagnosis - Problem List [...] applicable Code Visit Inpatient E AND M: 50364 Disch Hosp 12/09/17 1534 <Electronically signed by Irene Wilson MD> Date Irene Wilson MD Cosigner Signature (if applicable): Date CC: Irene Wilson MD; Mat Duffy MD Signed DISCHARGE INSTRUCTION Observed: 12/09/2017 Status: F Source: CHRISTOPHER 3:11 PM [facility] [place] [facility]ITORY [facility] Medical Records Department [address] [place] [address] Instructions for Home/Discharge Instructions 12/09/17 1509 MR#: [id number] Acct: [id number] Name: MICHAEL GARCIA Rep #: [id number] : 1945 72 From: Irene Wilson MD [...] 12/09/2017 Status: F Source: [place] 11:15 AM [facility] [place] REPOSITORY TYPE CODE TESTS RESULT OUT OF REFERENCE UNITS RANGE LAB L501.080 70-110 mg/dL High BEDSIDE GLU 262 Result Comment: MANAGEMENT OF PATIENT CARE PER NURSING PROTOCOL Performed By: #### L501.080 #### [facility] Laboratory Point of Care [address] [place] [address] BEDSIDE GLUCOSE Collected: 12/09/2017 Status: F Source: CHRISTOPHER 6:44 AM [facility] [place] REPOSITORY TYPE CODE TESTS RESULT OUT OF REFERENCE UNITS RANGE LAB L501.080 70-110 mg/dL High BEDSIDE GLU 153 Result Comment: Insulin Given MANAGEMENT OF PATIENT CARE PER NURSING PROTOCOL Performed By: #### L501.080 #### [facility] Laboratory Point of Care [address] [place] [address] BASIC METABOLIC Collected: 12/09/2017 Status: F Source: CHRISTOPHER PROFILE (BMP) 5:35 AM [facility] [place] REPOSITORY TYPE CODE TESTS RESULT OUT OF [...] GAP 8 Performed By: #### L500.2500 #### [facility] Laboratory [address] [facility] [place], [place], [id number] BEDSIDE GLUCOSE Collected: 12/08/2017 Status: F Source: [place] 10:18 PM [facility] [place] REPOSITORY TYPE CODE TESTS RESULT OUT OF REFERENCE UNITS RANGE LAB L501.080 70-110 mg/dL High BEDSIDE GLU 238 Result Comment: Insulin Given MANAGEMENT OF PATIENT CARE PER NURSING PROTOCOL Performed By: #### L501.080 #### [facility] Laboratory Point of Care [address] [place] [address] BEDSIDE GLUCOSE Collected: 12/08/2017 Status: F Source: [place] 5:54 PM [facility] [place] REPOSITORY TYPE CODE TESTS RESULT OUT OF REFERENCE UNITS RANGE LAB L501.080 70-110 mg/dL High BEDSIDE GLU 121 Result Comment: MANAGEMENT OF PATIENT CARE PER NURSING PROTOCOL Performed By: #### L501.080 #### [facility] Laboratory Point of Care [address] [place], [place] [id number] OPERATIVE REPORT Observed: 12/08/2017 Status: F Source: [place] 5:08 PM [facility] [place] [facility]POSITORY [facility] Medical Records Department [address] [place] [address] Operative Report 12/08/17 1703 MR#: [id number] Acct: [id number] Name: MICHAEL GARCIA Rep #: [id number] : 1945 72 From: Anoop Angeles MD PCP: Mat Duffy MD Status: ADM IN Y Location: [address] Problem List (1) JORGE (acute kidney injury) Status: Acute Report of Operation Date of Procedure: 12/08/17 Pre-Operative Diagnosis: Acute kidney injury Post-Operative Diagnosis: Same Surgery/Procedure Performed:: Left internal jugular 23 cm pre-curved tunneled palindrome hemodialysis catheter placement. Reference number [id number]. Lot #[id number] Description of Surgical Findings:: Timeout and informed [...] Signed CONSULTATION Observed: 12/08/2017 Status: F Source: [place] 5:03 PM [facility] [place] [facility]POSITORY [facility] Medical Records Department [address] [place] [address] Consultation 12/08/17 1302 MR#: [id number] Acct: [id number] Name: MICHAEL GARCIA Rep #: [id number] : 1945 72 From: Evangelina Hendricks PA-C PCP: Mat Duffy MD Status: ADM IN Y [id number] ADDENDUM by Anoop Angeles MD on 12/08/17 [...] Ortiz Markham MD; Matilde Hayward MD; Anoop Anegles MD; Mat Duffy MD * Signed Problem [...] Patient denies being seen previously by a telecommunications specialist. Per patient , her PCP would like [...] in 2016. She was transferred to the [facility] for treatment. Dr. West is her neurologist. [...] 1 VIEW Observed: 12/08/2017 Status: F Source: [place] (PORTABLE) 4:34 PM [facility] [place] REPOSITORY [facility] Imaging Services [address] [place] [address] [place] [address] Chest 1 View (Portable) MR#: [id number] Acct: [id number] Name: MICHAEL GARCIA Rep #: [id number] : 1945 F 72 From: Kvng Yung MD PCP: Mat Duffy MD Status: ADM IN Study: Chest 1 View (Portable) Date of Exam: 12/08/17 Exam# [id number] Ordering Dr: Anoop Angeles MD STUDY: X-RAY [...] CC: Anoop Angeles MD; Mat Duffy MD Gore Seamer: Signed BEDSIDE GLUCOSE Collected: 12/08/2017 Status: F Source: CH[place]STOP[place] 11:01 AM [facility] [place] REPOSITORY TYPE CODE TESTS RESULT OUT OF REFERENCE UNITS RANGE LAB L501.080 70-110 mg/dL High BEDSIDE GLU 139 Result Comment: MANAGEMENT OF PATIENT CARE PER NURSING PROTOCOL Performed By: #### L501.080 #### [facility] Laboratory Point of Care [address] [place] [address] BEDSIDE GLUCOSE Collected: 12/08/2017 Status: F Source: [place] 6:59 AM [facility] [place] REPOSITORY TYPE CODE TESTS RESULT OUT OF REFERENCE UNITS RANGE LAB L501.080 70-110 mg/dL High BEDSIDE GLU 163 Result Comment: MANAGEMENT OF PATIENT CARE PER NURSING PROTOCOL Performed By: #### L501.080 #### [facility] Laboratory Point of Care [address] [place] [address] BASIC METABOLIC Collected: 12/08/2017 Status: F Source: [place] PROFILE (BMP) 5:05 AM [facility] [place] REPOSITORY TYPE CODE TESTS RESULT OUT OF [...] GAP 10 Performed By: #### L500.2500 #### [facility] Laboratory [address] [place], [place], [id number] PROTHROMBIN TIME W/INR Collected: 12/08/2017 Status: F Source: [place] 5:05 AM [facility] [place] REPOSITORY TYPE CODE TESTS RESULT OUT OF RANGE REFERENCE UNITS LAB L300.4150 11.7-14.9 SECONDS Normal PROTIME 14.0 LAB L300.4200 Normal INR 1.1 Performed By: #### L300.3900, L300.4310 #### [facility] Laboratory [address] [place], [place], [id number] PARTIAL THROMBOPLAST Collected: 12/08/2017 Status: F Source: [place] TIME 5:05 AM [facility] [place] REPOSITORY TYPE CODE TESTS RESULT OUT OF REFERENCE UNITS RANGE LAB L300.4310 24.1-36.2 Seconds High PTT 42.8 Performed By: #### L300.3900, L300.4310 #### [facility] Laboratory [address] [place], [address] CBC-COMPLETE BLOOD CNT Collected: 12/08/2017 Status: F Source: [place] NO DIFF 5:05 AM [facility] [place] REPOSITORY TYPE CODE TESTS RESULT OUT OF [...] MPV 9.5 Performed By: #### L100.0500 #### [facility] [address] [place], [place], [id number] BEDSIDE GLUCOSE Collected: 12/07/2017 Status: F Source: CH[place] 8:59 PM [facility] [place] REPOSITORY TYPE CODE TESTS RESULT OUT OF REFERENCE UNITS RANGE LAB L501.080 70-110 mg/dL High BEDSIDE GLU 218 Result Comment: MANAGEMENT OF PATIENT CARE PER NURSING PROTOCOL Performed By: #### L501.080 #### [facility] Laboratory Point of Care [address] [place], [place] [id number] ([address]) BEDSIDE GLUCOSE Collected: 12/07/2017 Status: F Source: CH[place] 4:44 PM [facility] [place] REPOSITORY TYPE CODE TESTS RESULT OUT OF REFERENCE UNITS RANGE LAB L501.080 70-110 mg/dL High BEDSIDE GLU 204 Result Comment: MANAGEMENT OF PATIENT CARE PER NURSING PROTOCOL Performed By: #### L501.080 #### [facility] Laboratory Point of Care [address] [facility] [place] [address] BEDSIDE GLUCOSE Collected: 12/07/2017 Status: F Source: [place] 11:31 AM [facility] [place] REPOSITORY TYPE CODE TESTS RESULT OUT OF REFERENCE UNITS RANGE LAB L501.080 70-110 mg/dL High BEDSIDE GLU 196 Result Comment: MANAGEMENT OF PATIENT CARE PER NURSING PROTOCOL Performed By: #### L501.080 #### [facility] Laboratory Point of Care [address] [place] [address] BEDSIDE GLUCOSE Collected: 12/07/2017 Status: F Source: CH[place] 6:44 AM [facility] [place] REPOSITORY TYPE CODE TESTS RESULT OUT OF REFERENCE UNITS RANGE LAB L501.080 70-110 mg/dL High BEDSIDE GLU 115 Result Comment: MANAGEMENT OF PATIENT CARE PER NURSING PROTOCOL Performed By: #### L501.080 #### [facility] Laboratory Point of Care [address] [place] [address] CBC-COMPLETE BLOOD CNT Collected: 12/07/2017 Status: F Source: [place] NO DIFF 5:14 AM [facility] [place] REPOSITORY TYPE CODE TESTS RESULT OUT OF [...] MPV 9.4 Performed By: #### L100.0500 #### [facility] Laboratory [address] [place], [place], [id number] BASIC METABOLIC Collected: 12/07/2017 Status: F Source: [place] PROFILE (BMP) 5:14 AM [facility] [place] REPOSITORY TYPE CODE TESTS RESULT OUT OF [...] 11 Performed By: #### L500.2500, L501.5200 #### [facility] [address] [facility]. [place], [place], [id number] MAGNESIUM Collected: 12/07/2017 Status: F Source: [place] 5:14 AM [facility] [place] REPOSITORY TYPE CODE TESTS RESULT OUT OF RANGE REFERENCE UNITS LAB L501.5200 1.6-2.6 mg/dL Normal MG 2.2 Result Comment: Please note revised Magnesium reference range effective 2017. Performed By: #### L500.2500, L501.5200 #### [facility] Laboratory [address] [place], [place], [address] BEDSIDE GLUCOSE Collected: 12/06/2017 Status: F Source: CHRISTOP[place] 8:45 PM [facility] [place] REPOSITORY TYPE CODE TESTS RESULT OUT OF REFERENCE UNITS RANGE LAB L501.080 70-110 mg/dL High BEDSIDE GLU 175 Result Comment: MANAGEMENT OF PATIENT CARE PER NURSING PROTOCOL Performed By: #### L501.080 #### [facility] Laboratory Point of Care [address] [place] [address] BEDSIDE GLUCOSE Collected: 12/06/2017 Status: F Source: [place] 4:48 PM [facility] [place] REPOSITORY TYPE CODE TESTS RESULT OUT OF REFERENCE UNITS RANGE LAB L501.080 70-110 mg/dL High BEDSIDE GLU 231 Result Comment: MANAGEMENT OF PATIENT CARE PER NURSING PROTOCOL Performed By: #### L501.080 #### [facility] Laboratory Point of Care [address] [place] [address] BEDSIDE GLUCOSE Collected: 12/06/2017 Status: F Source: CH[place] 11:31 AM [facility] [place] REPOSITORY TYPE CODE TESTS RESULT OUT OF REFERENCE UNITS RANGE LAB L501.080 70-110 mg/dL High BEDSIDE GLU 240 Result Comment: MANAGEMENT OF PATIENT CARE PER NURSING PROTOCOL Performed By: #### L501.080 #### [facility] Laboratory Point of Care [address] [facility] [place], [place] [address] CBC-COMPLETE BLOOD CNT Collected: 12/06/2017 Status: F Source: [place] NO DIFF 11:00 AM [facility] [place] REPOSITORY TYPE CODE TESTS RESULT OUT OF [...] MPV 8.9 Performed By: #### L100.0500 #### [facility] Laboratory [address] [place], [address] BASIC METABOLIC Collected: 12/06/2017 Status: F Source: CHRISTOPHER PROFILE ([facility]) 11:00 AM [facility] [place] REPOSITORY TYPE CODE TESTS RESULT OUT OF [...] 9 Performed By: #### L500.2500, L501.5200 #### [facility] Laboratory [address] [place], [place], [address] MAGNESIUM Collected: 12/06/2017 Status: F Source: CHRISTOPHER 11:00 AM [facility] [place] REPOSITORY TYPE CODE TESTS RESULT OUT OF RANGE REFERENCE UNITS LAB L501.5200 1.6-2.6 mg/dL Normal MG 2.1 Result Comment: Please note revised Magnesium reference range effective 2017. Performed By: #### L500.2500, L501.5200 #### [facility] Laboratory [address] [place], [address] BEDSIDE GLUCOSE Collected: 12/06/2017 Status: F Source: CHRISTOPHER 6:53 AM [facility] [place] REPOSITORY TYPE CODE TESTS RESULT OUT OF RANGE REFERENCE UNITS LAB L501.080 70-110 mg/dL Normal BEDSIDE GLU 101 Result Comment: MANAGEMENT OF PATIENT CARE PER NURSING PROTOCOL Performed By: #### L501.080 #### [facility] Laboratory Point of Care [address] [place] [address] BEDSIDE GLUCOSE Collected: 12/05/2017 Status: F Source: CHRISTOPHER 9:35 PM [facility] [place] REPOSITORY TYPE CODE TESTS RESULT OUT OF REFERENCE UNITS RANGE LAB L501.080 70-110 mg/dL High BEDSIDE GLU 164 Result Comment: MANAGEMENT OF PATIENT CARE PER NURSING PROTOCOL Performed By: #### L501.080 #### [facility] Laboratory Point of Care [address] [place] [address] BEDSIDE GLUCOSE Collected: 12/05/2017 Status: F Source: CHRISTOPHER 6:24 PM [facility] [place] REPOSITORY TYPE CODE TESTS RESULT OUT OF REFERENCE UNITS RANGE LAB L501.080 70-110 mg/dL High BEDSIDE GLU 145 Result Comment: MANAGEMENT OF PATIENT CARE PER NURSING PROTOCOL Performed By: #### L501.080 #### [facility] Laboratory Point of Care [address] [place] [address] BEDSIDE GLUCOSE Collected: 12/05/2017 Status: F Source: CHRISTOPHER 11:42 AM [facility] [place] REPOSITORY TYPE CODE TESTS RESULT OUT OF REFERENCE UNITS RANGE LAB L501.080 70-110 mg/dL High BEDSIDE GLU 303 Result Comment: MANAGEMENT OF PATIENT CARE PER NURSING PROTOCOL Performed By: #### L501.080 #### [facility] Laboratory Point of Care [address] [place] [address] BEDSIDE GLUCOSE Collected: 12/05/2017 Status: F Source: CHRISTOPHER 6:39 AM [facility] [place] REPOSITORY TYPE CODE TESTS RESULT OUT OF REFERENCE UNITS RANGE LAB L501.080 70-110 mg/dL High BEDSIDE GLU 156 Result Comment: MANAGEMENT OF PATIENT CARE PER NURSING PROTOCOL Performed By: #### L501.080 #### [facility] Laboratory Point of Care [address] [place], [place] [address] CBC W/DIFF, AUTOMATED Collected: 12/05/2017 Status: F Source: CHRISTOPHER 5:05 AM [facility] [place] REPOSITORY TYPE CODE TESTS RESULT OUT OF [...] Lymph 0.90 Performed By: #### L100.0100 #### [facility] [address] [place], [place], [id number] BASIC METABOLIC Collected: 12/05/2017 Status: F Source: CHRISTOPHER PROFILE (BMP) 5:05 AM [facility] [place] REPOSITORY TYPE CODE TESTS RESULT OUT OF [...] GAP 9 Performed By: #### L500.2500 #### [facility] Laboratory [address] [place], [place], [address] BEDSIDE GLUCOSE Collected: 12/04/2017 Status: F Source: CHRISTOPHER 10:00 PM [facility] [place] REPOSITORY TYPE CODE TESTS RESULT OUT OF REFERENCE UNITS RANGE LAB L501.080 70-110 mg/dL High BEDSIDE GLU 264 Result Comment: MANAGEMENT OF PATIENT CARE PER NURSING PROTOCOL Performed By: #### L501.080 #### [facility] Laboratory Point of Care [address] [place], [place] [address] BEDSIDE GLUCOSE Collected: 12/04/2017 Status: F Source: CHRISTOPHER 4:33 PM [facility] [place] REPOSITORY TYPE CODE TESTS RESULT OUT OF REFERENCE UNITS RANGE LAB L501.080 70-110 mg/dL High BEDSIDE GLU 198 Result Comment: MANAGEMENT OF PATIENT CARE PER NURSING PROTOCOL Performed By: #### L501.080 #### [facility] Laboratory Point of Care [address] [place] [address] BEDSIDE GLUCOSE Collected: 12/04/2017 Status: F Source: CHRISTOPHER 11:17 AM [facility] [place] REPOSITORY TYPE CODE TESTS RESULT OUT OF REFERENCE UNITS RANGE LAB L501.080 70-110 mg/dL High BEDSIDE GLU 220 Result Comment: MANAGEMENT OF PATIENT CARE PER NURSING PROTOCOL Performed By: #### L501.080 #### [facility] Laboratory Point of Care [address] [place] [address] BEDSIDE GLUCOSE Collected: 12/04/2017 Status: F Source: CHRISTOPHER 6:38 AM [facility] [place] REPOSITORY TYPE CODE TESTS RESULT OUT OF REFERENCE UNITS RANGE LAB L501.080 70-110 mg/dL High BEDSIDE GLU 132 Result Comment: MANAGEMENT OF PATIENT CARE PER NURSING PROTOCOL Performed By: #### L501.080 #### [facility] Laboratory Point of Care [address] [place] [address] BASIC METABOLIC Collected: 12/04/2017 Status: F Source: CHRISTOPHER PROFILE (BMP) 5:35 AM [facility] [place] REPOSITORY TYPE CODE TESTS RESULT OUT OF [...] GAP 7 Performed By: #### L500.2500 #### [facility] [address] [place], [address] BEDSIDE GLUCOSE Collected: 12/03/2017 Status: F Source: [place] 9:45 PM [facility] [place] REPOSITORY TYPE CODE TESTS RESULT OUT OF REFERENCE UNITS RANGE LAB L501.080 70-110 mg/dL High BEDSIDE GLU 165 Result Comment: MANAGEMENT OF PATIENT CARE PER NURSING PROTOCOL Performed By: #### L501.080 #### [facility] Laboratory Point of Care [address] [place] [address] BEDSIDE GLUCOSE Collected: 12/03/2017 Status: F Source: [place] 5:17 PM [facility] [place] REPOSITORY TYPE CODE TESTS RESULT OUT OF REFERENCE UNITS RANGE LAB L501.080 70-110 mg/dL High BEDSIDE GLU 140 Result Comment: MANAGEMENT OF PATIENT CARE PER NURSING PROTOCOL Performed By: #### L501.080 #### [facility] Laboratory Point of Care [address] [facility] [place] [address] OT D/C SUMMARY Observed: 12/03/2017 Status: F Source: ANTON[place]O 4:38 PM [facility] [place] REPOSITORY [facility] Occupational Therapy [facility] [address] [place] [address]. [address] [place] [address] Fax REHABILITATION SERVICES DISCHARGE SUMMARY MR#: [id number] Acct: [id number] Name: MICHAEL GARCIA Rep #: [id number] : 1945 72 From: Norbert Burks OTR/L, CHT Referring DrMaritza: Severiano Kumar MD Status: REG RCR Eval Date: Discharge Date: - OT D/C Summary It has been my pleasure to treat MICHAEL GARCIA under orders from Severiano Kumar DR.[facility] for the diagnosis of right hand swelling [...] pt will demo a increase in right medicare coordinator to 20# or greater to return pt [...] please fell free to call me at [phone]. Thank you for the referral of this patient. Sincerely, Norbert Burks, OTR/L, CHT <Electronically signed by Norbert Burks OTR/L, CHT> 12/03/17 1638 CC: Severiano Kumar MD; Mat Duffy MD MK Signed HEPATITIS B SURFACE Collected: 12/03/2017 Status: F Source: CHRISTOPHER AG 3:35 PM [facility] [place] REPOSITORY TYPE CODE TESTS RESULT OUT OF RANGE REFERENCE UNITS LAB L3100.0400 Negative Normal HB Negative SURF AG Performed By: #### L3100.0390, L3100.0460, L3100.0480 #### [facility] (refer to report for specific site) refer to report for address and phone number HEPATITIS B CORE AB Collected: 12/03/2017 Status: F Source: CHRISTOPHER TOTAL 3:35 PM [facility] [place] REPOSITORY TYPE CODE TESTS RESULT OUT OF RANGE REFERENCE UNITS LAB L3100.0460 Negative Normal HEP B Negative CORE,TOT Result Comment: Performed at: [facility] [id number] Coffee Blender: Ayad Joy PhD, Phone: [phone] Performed By: #### L3100.0390, L3100.0460, L3100.0480 #### [facility] (refer to report for specific site) refer to report for address and phone number HEPATITIS BE AB Collected: 12/03/2017 Status: F Source: CHRISTOPHER 3:35 PM [facility] [place] REPOSITORY TYPE CODE TESTS RESULT OUT OF RANGE REFERENCE UNITS LAB L3100.0480 Negative Normal HEP Negative Be Ab 6635 Performed By: #### L3100.0390, L3100.0460, L3100.0480 #### [facility] (refer to report for specific site) refer to report for address and phone number SHANDRA + PROTEIN ELECT, Collected: 12/03/2017 Status: F Source: CHRISTOPHER SERUM 3:35 PM [facility] [place] REPOSITORY TYPE CODE TESTS RESULT OUT OF RANGE REFERENCE UNITS LAB L3100.3500 6.0-8.5 g/dL Normal PROTEIN,TOTAL 6.9 LAB L3200.9006 244-2032 mg/dL Normal IMMUNO G 1239 LAB L3200.1400 87-352 mg/dL High IMMUNO A 482 LAB L3200.1500 26-217 mg/dL High IMMUNOGL M 427 LAB L3200.1510 2.9-4.4 g/dL Normal ALBUMIN 2.9 LAB L3200.1520 0.0-0.4 g/dL Normal EERDR-6-YJJM 0.4 LAB L3200.1530 0.4-1.0 g/dL High MNNBS-4-PFLL 1.1 LAB L3200.1540 0.7-1.3 g/dL Normal BETA [...] scan will follow via computer, mail, or waste collection driver delivery. Performed By: #### L3100.3425, L3100.3450, L3300.1200, L3410.0300 #### [facility] (refer to report for specific site) refer to report for address and phone number PROTEIN ELECTROPH, S Collected: 12/03/2017 Status: F Source: CHRISTOPHER 3:35 PM [facility] [place] REPOSITORY TYPE CODE TESTS RESULT OUT OF [...] scan will follow via computer, mail, or waste collection driver delivery. LAB L3100.4340 . Normal NOTE: Comment [...] 12/03/2017 Status: F Source: CHRISTOPHER 3:35 PM [facility] [place] REPOSITORY TYPE CODE TESTS RESULT OUT OF [...] up testing of positive sera with both NH- 3 and MPO-ANCA enzyme immunoassays. As many [...] F Source: CHRISTOPHER IGG, AB 3:35 PM [facility] REPOSITORY TYPE CODE TESTS RESULT OUT OF RANGE REFERENCE UNITS LAB L3410.0300 0-19 EU High SS AB 242 [id number] Result Comment: Negative: <20 Borderline: 20 - 25 Positive: >25 Performed at: [facility] [address] [id number] Coffee Blender: Ayad Joy PhD, Phone: [phone] Performed at: [facility] [address] [id number] Coffee Blender: Chris Simeon MD, Phone: [phone] Performed By: #### L3100.7580, M0987.8981, T3753.7384, G6417.0290 #### [facility] (refer to report for specific site) refer to report for address and phone number 12 LEAD ELECTROCARDIOGRAM Observed: 12/03/2017 Status: F Source: CHRISTOPHER 2:42 PM [facility] REPOSITORY [facility] Cardiovascular Services [address] [place] [address] 12 Lead EKG 11/29/17 1045 MR#: [id number] Acct: [id number] Name: MICHAEL GARCIA Rep #: [id number] : 1945 72 From: Darien Mcclendon MD Attending Dr: Jeevan Machado MD Status: ADM IN Ordering Dr: Fahad Sesay MD Date: 12/03/17 Location: [facility] Sex: F C Admitted: 11/27/17 Test Reason [...] UNCONFIRMED Confirmed by DARIEN MCCLENDON MD ([id number]), photograph editor HONORIO SHEFFIELD (56) on 12/03/2017 2:42:19 PM Referred By: JACK Confirmed By:DARIEN MCCLENDON MD 12/03/17 1442 Date Darien Mcclendon MD CC: Fahad Sesay; Mat Duffy MD Signed OPERATIVE REPORT Observed: 12/03/2017 Status: F Source: CHRISTOPHER 11:43 AM [facility] REPOSITORY [facility] Medical Records Department [address] [place] [address] Operative Report 12/03/17 1134 MR#: [id number] Acct: [id number] Name: MICHAEL GARCIA Rep #: [id number] : 1945 72 From: Josi JENSEN PCP: Mat Duffy MD Status: ADM IN Y Location: [place] [address] Problem List (1) JORGE (acute kidney injury) [...] the absence of pneumothorax. Code Visit Procedures: 17269 Insert Non-tunnel CV Cath 12/03/17 1143 <Electronically signed by Josi JENSEN> Date Josi JENSEN CC: Nidia Jones MD; Rocael Valencia MD; Josi Hickman; Ortiz Markham MD; Matilde Hayward MD; Mat Duffy MD Signed BEDSIDE GLUCOSE Collected: 12/03/2017 Status: F Source: CHRISTOPHER 11:43 AM [facility] REPOSITORY TYPE CODE TESTS RESULT OUT OF REFERENCE UNITS RANGE LAB L501.080 70-110 mg/dL High BEDSIDE GLU 265 Result Comment: MANAGEMENT OF PATIENT CARE PER NURSING PROTOCOL Performed By: #### L501.080 #### [facility] Laboratory Point of Care [address] [place], [place] [address] CHEST 1 VIEW Observed: 12/03/2017 Status: F Source: CHRISTOPHER (PORTABLE) 11:29 AM [facility] REPOSITORY [facility] Imaging Services [address] [place] [address] Chest 1 View (Portable) MR#: [id number] Acct: [id number] Name: MICHAEL GARCIA Rep #: [id number] : 1945 F 72 From: Brett Arcos MD PCP: Mat Duffy MD Status: ADM IN Study: Chest 1 View (Portable) Date of Exam: 12/03/17 Exam# [id number] Ordering Dr: Matilde Hayward MD STUDY: X-RAY [...] Brett Arcos MD at 12:44 EST Tel [phone], Service support , CC: Matilde Hayward MD; Mat Duffy MD Gore Seamer: Signed CHEST 1 VIEW Observed: 12/03/2017 Status: F Source: CHRISTOPHER (PORTABLE) 6:57 AM [facility] REPOSITORY [facility] Imaging Services [address] [place] [address] Chest 1 View (Portable) MR#: [id number] Acct: [id number] Name: MICHAEL GARCIA Rep #: [id number] : 1945 F 72 From: Brett Arcos MD PCP: Mat Duffy MD Status: ADM IN Study: Chest 1 View (Portable) Date of Exam: 12/03/17 Exam# [id number] Ordering Dr: Aydin Carroll DO STUDY: X-RAY [...] Brett Arcos MD at 10:25 EST Tel [phone], Service support , CC: Aydin Carroll D.O.; Mat Duffy MD Gore Seamer: Signed BEDSIDE GLUCOSE Collected: 12/03/2017 Status: F Source: CHRISTOHPER 6:55 AM [facility] REPOSITORY TYPE CODE TESTS RESULT OUT OF REFERENCE UNITS RANGE LAB L501.080 70-110 mg/dL High BEDSIDE GLU 144 Result Comment: MANAGEMENT OF PATIENT CARE PER NURSING PROTOCOL Performed By: #### L501.080 #### [facility] Laboratory Point [place] [address] CBC W/DIFF, AUTOMATED Collected: 12/03/2017 Status: F Source: ANTONITO 5:15 AM [facility] REPOSITORY TYPE CODE TESTS RESULT OUT OF [...] Lymph 1.06 Performed By: #### L100.0100 #### [facility] Laboratory [address] [facility] [place], [place], [address] BASIC METABOLIC Collected: 12/03/2017 Status: F Source: ANTONITO PROFILE (BMP) 5:15 AM [facility] REPOSITORY TYPE CODE TESTS RESULT OUT OF [...] 9 Performed By: #### L500.2500, L501.5200 #### [facility] Laboratory [address] [facility], [address] MAGNESIUM Collected: 12/03/2017 Status: F Source: CHRISTOPHER 5:15 AM [facility] REPOSITORY TYPE CODE TESTS RESULT OUT OF RANGE REFERENCE UNITS LAB L501.5200 1.6-2.6 mg/dL Normal MG 2.5 Result Comment: Please note revised Magnesium reference range effective 2017. Performed By: #### L500.2500, L501.5200 #### [facility] Laboratory [address] [place], [address] BEDSIDE GLUCOSE Collected: 12/02/2017 Status: F Source: CHRISTOPHER 9:10 PM [facility] REPOSITORY TYPE CODE TESTS RESULT OUT OF REFERENCE UNITS RANGE LAB L501.080 70-110 mg/dL High BEDSIDE GLU 214 Result Comment: MANAGEMENT OF PATIENT CARE PER NURSING PROTOCOL Performed By: #### L501.080 #### [facility] Laboratory Point of Care [address] [place] [address] BEDSIDE GLUCOSE Collected: 12/02/2017 Status: F Source: CHRISTOPHER 3:53 PM [facility] REPOSITORY TYPE CODE TESTS RESULT OUT OF REFERENCE UNITS RANGE LAB L501.080 70-110 mg/dL High BEDSIDE GLU 222 Result Comment: MANAGEMENT OF PATIENT CARE PER NURSING PROTOCOL Performed By: #### L501.080 #### [facility] Laboratory Point of Care [address] [place] [address] 12 LEAD ELECTROCARDIOGRAM Observed: 12/02/2017 Status: F Source: CHRISTOPHER 2:19 PM [facility] REPOSITORY [facility] Cardiovascular Services [address] [facility] [place] [address] 12 Lead EKG 11/28/17 0457 MR#: [id number] Acct: [id number] Name: MICHAEL GARCIA Rose Rep #: [id number] : 1945 72 From: Ortiz Markham MD [...] IS UNCONFIRMED Confirmed by ORTIZ MARKHAM ([id number]), photograph editor HONORIO SHEFFIELD (56) on 12/02/2017 2:18:52 PM Referred By: Severiano Kumar Confirmed By:ORTIZ MARKHAM 12/02/17 1418 Date Ortiz Markham MD CC: Ortiz Markham MD; Mat Duffy MD Signed 12 LEAD ELECTROCARDIOGRAM Observed: 12/02/2017 Status: F Source: ANTONITO 1:57 PM [facility] REPOSITORY [facility] Cardiovascular Services [address] [place] [address] 12 Lead EKG 11/27/17 0934 MR#: [id number] Acct: [id number] Name: MICHAEL GARCIA Rep #: [id number] : 1945 72 From: Ortiz Markham MD Attending Dr: Jeevan Machado MD Status: ADM IN Ordering Dr: Trevor Hamm MD Date: 11/27/17 Location: [facility] Sex: F C Admitted: 11/27/17 Test Reason [...] IS UNCONFIRMED Confirmed by ORTIZ MARKHAM ([id number]), photograph editor HONORIO SHEFFIELD (56) on 12/02/2017 1:56:29 PM Referred By: Severiano Kumar Confirmed By:ORTIZ MARKHAM 12/02/17 1356 Date Ortiz Markham MD CC: Trevor Hamm MD; Mat Duffy MD Signed BASIC METABOLIC Collected: 12/02/2017 Status: F Source: CHRISTOPHER PROFILE (BMP) 1:55 PM [facility] REPOSITORY TYPE CODE TESTS RESULT OUT OF [...] GAP 8 Performed By: #### L500.2500 #### [facility] Laboratory [address] [facility] [place], [address] 12 LEAD ELECTROCARDIOGRAM Observed: 12/02/2017 Status: F Source: CHRISTOPHER 1:50 PM [facility] REPOSITORY [facility] Cardiovascular Services [address] [facility] [place] [address] 12 Lead EKG 11/27/17 0549 MR#: [id number] Acct: [id number] Name: MICHAEL GARCIA Rep #: [id number] : 1945 72 From: Ortiz Markham MD Attending Dr: Jeevan Machado MD Status: ADM IN Ordering Dr: Reinier Lang MD Date: 11/28/17 Location: [facility] Sex: F C Admitted: 11/27/17 Test Reason : CP Blood Pressure : / mmHG Vent. Rate : 103 BPM Atrial Rate : 103 BPM P-R Int : 130 ms QRS Dur : 080 ms QT Int : 342 ms P-R-T Axes : 046 023 059 degrees QTc Int : 448 ms Sinus tachycardia Otherwise normal ECG Confirmed by ORTIZ MARKHAM ([id number]), photograph editor HONORIO SHEFFIELD (56) on 12/02/2017 1:49:59 PM Referred By: Severiano Kumar Confirmed By:ORTIZ MARKHAM 12/02/17 1350 Date Oritz Markham MD CC: Reinier Lang MD; Mat Duffy MD Signed BEDSIDE GLUCOSE Collected: 12/02/2017 Status: F Source: CHRISTOPHER 11:26 AM [facility] REPOSITORY TYPE CODE TESTS RESULT OUT OF REFERENCE UNITS RANGE LAB L501.080 70-110 mg/dL High BEDSIDE GLU 275 Result Comment: MANAGEMENT OF PATIENT CARE PER NURSING PROTOCOL Performed By: #### L501.080 #### [facility] Laboratory Point of Care [address] [place] [address] BEDSIDE GLUCOSE Collected: 12/02/2017 Status: F Source: CHRISTOPHER 6:41 AM [facility] REPOSITORY TYPE CODE TESTS RESULT OUT OF REFERENCE UNITS RANGE LAB L501.080 70-110 mg/dL High BEDSIDE GLU 239 Result Comment: MANAGEMENT OF PATIENT CARE PER NURSING PROTOCOL Performed By: #### L501.080 #### [facility] Laboratory Point of Care [address] [place] [address] CBC-COMPLETE BLOOD CNT Collected: 12/02/2017 Status: F Source: CHRISTOPHER NO DIFF 5:10 AM [facility] REPOSITORY TYPE CODE TESTS RESULT OUT OF [...] MPV 9.1 Performed By: #### L100.0500 #### [facility] Laboratory [address] [place], [address] BASIC METABOLIC Collected: 12/02/2017 Status: F Source: ANTONITO PROFILE (BMP) 5:10 AM [facility] REPOSITORY TYPE CODE TESTS RESULT OUT OF [...] 9 Performed By: #### L500.2500, L501.5200 #### [facility] Laboratory [address] [facility] [address] MAGNESIUM Collected: 12/02/2017 Status: F Source: CHRISTOPHER 5:10 AM [facility] REPOSITORY TYPE CODE TESTS RESULT OUT OF RANGE REFERENCE UNITS LAB L501.5200 1.6-2.6 mg/dL Normal MG 2.6 Result Comment: Please note revised Magnesium reference range effective 2017. Performed By: #### L500.2500, L501.5200 #### [facility] Laboratory [facility] [place], [address] BEDSIDE GLUCOSE Collected: 12/01/2017 Status: F Source: CHRISTOPHER 9:00 PM [facility] REPOSITORY TYPE CODE TESTS RESULT OUT OF REFERENCE UNITS RANGE LAB L501.080 70-110 mg/dL High BEDSIDE GLU 216 Result Comment: MANAGEMENT OF PATIENT CARE PER NURSING PROTOCOL Performed By: #### L501.080 #### [facility] Laboratory Point of Care [address] [place] [address] [place] [address] BEDSIDE GLUCOSE Collected: 12/01/2017 Status: F Source: CHRISTOPHER 4:46 PM [facility] REPOSITORY TYPE CODE TESTS RESULT OUT OF REFERENCE UNITS RANGE LAB L501.080 70-110 mg/dL High BEDSIDE GLU 209 Result Comment: MANAGEMENT OF PATIENT CARE PER NURSING PROTOCOL Performed By: #### L501.080 #### [facility] Laboratory Point of Care [address] [facility] [place] [address] CONSULTATION Observed: 12/01/2017 Status: F Source: CHRISTOPHER 12:35 PM [facility] REPOSITORY [facility] Medical Records Department [address] [place] [address] [place] [address] Consultation 12/01/17 1226 MR#: [id number] Acct: [id number] Name: MICHAEL GARCIA Rep #: [id number] : 1945 72 From: Trell Jenkins MD PCP: Mat Duffy MD Status: ADM IN Y Location: [place] [address] Problem List (1) JORGE (acute kidney injury) [...] Medications Albuterol/Ipratropium (Duoneb) 3 ml INHALATION Q6H.RT COUNTS INCLUDE 234 BEDS AT THE [facility] Last Admin: 12/01/17 06:42 Dose: 3 ml Amiodarone HCl (Cordarone) 200 mg PO DAILY COUNTS INCLUDE 234 BEDS AT THE [facility] Last Admin: 12/01/17 09:39 Dose: 200 mg Atorvastatin Calcium (Lipitor) 40 mg PO QHS COUNTS INCLUDE 234 BEDS AT THE [facility] Last Admin: 11/30/17 22:42 Dose: 40 mg Bisacodyl (Dulcolax) 5 mg PO DAILY PRN PRN PRN Reason: Constipation Clonidine (Catapres) 0.1 mg PO TID COUNTS INCLUDE 234 BEDS AT THE [facility] Last Admin: 12/01/17 05:28 Dose: 0.1 mg Dextrose (D50w Syringe) 0 gm IV X1 PRN; Protocol PRN Reason: Hypoglycemia Gabapentin (Neurontin) 300 mg PO QHS COUNTS INCLUDE 234 BEDS AT THE [facility] Last Admin: 11/30/17 22:50 Dose: 300 mg Glucagon () 1 mg IM .X1 PRN PRN Reason: Hypoglycemia Guaifenesin (Robitussin) 10 ml PO Q6H PRN PRN PRN Reason: COUGH/CONGESTION Heparin Sodium (Porcine) () 5,000 units SC BID COUNTS INCLUDE 234 BEDS AT THE [facility] Last Admin: 12/01/17 09:39 Dose: 5,000 units Piperacillin Sod/Tazobactam Sod (Zosyn) 3.375 gm in 50 mls @ 12.5 mls/hr IV Q8 COUNTS INCLUDE 234 BEDS AT THE [facility] Last Admin: 12/01/17 05:26 Dose: 12.5 mls/hr Insulin Aspart (Novolog Flexpen (Bk)) 0 units SC ACHS COUNTS INCLUDE 234 BEDS AT THE [facility] PRN Reason: Protocol Last Admin: 12/01/17 11:57 Dose: 2 u Insulin Detemir (Levemir ([facility])) 39 units SC BID COUNTS INCLUDE 234 BEDS AT THE [facility] Last Admin: 12/01/17 09:39 Dose: 39 u Levofloxacin (Levaquin) 250 mg PO DAILY@0600 COUNTS INCLUDE 234 BEDS AT THE [facility] Last Admin: 12/01/17 05:37 Dose: 250 mg Metoprolol Tartrate (Lopressor (Beta Stephania)) 50 mg PO BID COUNTS INCLUDE 234 BEDS AT THE [facility] Last Admin: 12/01/17 09:39 Dose: 50 mg Oxycodone HCl (Oxyir) 5 mg PO Q6H PRN PRN PRN Reason: SEVERE PAIN (6-10/10) Last Admin: 11/29/17 17:58 Dose: 5 mg Pantoprazole Sodium (Protonix) 40 mg PO DAILY COUNTS INCLUDE 234 BEDS AT THE [facility] Last Admin: 12/01/17 09:39 Dose: 40 mg Polysaccharide Iron Complex (Ferrex 150) [facility] Last Admin: 12/01/17 09:39 Dose: 150 mg [...] is fairly dysneic no acute indications 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 s/p PRBC 12/01/17 1235 <Electronically signed by Trell Jenkins MD> Date Trell Jenkins MD Cosigner Signature (if applicable): Date CC: Nidia Jones MD; Rocael Valencia MD; Ortiz Markham MD; Matilde Hayward MD; Mat Duffy MD Signed BEDSIDE GLUCOSE Collected: 12/01/2017 Status: F Source: CHRISTOPHER 11:21 AM [facility] REPOSITORY TYPE CODE TESTS RESULT OUT OF REFERENCE UNITS RANGE LAB L501.080 70-110 mg/dL High BEDSIDE GLU 269 Result Comment: MANAGEMENT OF PATIENT CARE PER NURSING PROTOCOL Performed By: #### L501.080 #### [facility] Laboratory Point of Care [address] [place] [address] BEDSIDE GLUCOSE Collected: 12/01/2017 Status: F Source: CHRISTOPHER 6:48 AM [facility] REPOSITORY TYPE CODE TESTS RESULT OUT OF REFERENCE UNITS RANGE LAB L501.080 70-110 mg/dL High BEDSIDE GLU 129 Result Comment: MANAGEMENT OF PATIENT CARE PER NURSING PROTOCOL Performed By: #### L501.080 #### [facility] Laboratory Point of Care [address] [place] [address] BASIC METABOLIC Collected: 12/01/2017 Status: F Source: CHRISTOPHER PROFILE (BMP) 5:05 AM [facility] REPOSITORY TYPE CODE TESTS RESULT OUT OF [...] GAP 7 Performed By: #### L500.2500 #### [facility] Laboratory [address] [place], [address] CBC W/DIFF, AUTOMATED Collected: 12/01/2017 Status: F Source: ANTONITO 5:05 AM [facility] REPOSITORY TYPE CODE TESTS RESULT OUT OF [...] Lymph 0.92 Performed By: #### L100.0100 #### [facility] Laboratory [address] [place], [address] CNCO Observed: 12/01/2017 Status: COMPLETED Source: ASHIPPUN 12:00 AM [facility] REPOSITORY Letter Text Michael Garcia [address] [place] [address] 12/01/2017 CCF #: [id number] Dear , Due to a change in [...] for you, please contact our office at [phone]. Thank you for choosing the [facility] as your Healthcare Provider . Sincerely, Internal Medicine Appointment Office BEDSIDE GLUCOSE Collected: 11/30/2017 Status: F Source: CHRISTOPHER 10:41 PM [facility] REPOSITORY TYPE CODE TESTS RESULT OUT OF REFERENCE UNITS RANGE LAB L501.080 70-110 mg/dL High BEDSIDE GLU 273 Result Comment: MANAGEMENT OF PATIENT CARE PER NURSING PROTOCOL Performed By: #### L501.080 #### [facility] Laboratory Point of Care [address] [place] [address] BEDSIDE GLUCOSE Collected: 11/30/2017 Status: F Source: CHRISTOPHER 4:48 PM [facility] REPOSITORY TYPE CODE TESTS RESULT OUT OF REFERENCE UNITS RANGE LAB L501.080 70-110 mg/dL High BEDSIDE GLU 225 Result Comment: MANAGEMENT OF PATIENT CARE PER NURSING PROTOCOL Performed By: #### L501.080 #### [facility] Laboratory Point of Care [address] [place], [place] [address] BEDSIDE GLUCOSE Collected: 11/30/2017 Status: F Source: CHRISTOPHER 11:45 AM [facility] REPOSITORY TYPE CODE TESTS RESULT OUT OF REFERENCE UNITS RANGE LAB L501.080 70-110 mg/dL High BEDSIDE GLU 211 Result Comment: MANAGEMENT OF PATIENT CARE PER NURSING PROTOCOL Performed By: #### L501.080 #### [facility] Laboratory Point of Care [address] [place] [address] ABDOMEN/PELVIS WITHOUT Observed: 11/30/2017 Status: F Source: CHRISTOPHER CONT 7:43 AM [facility] REPOSITORY [facility] Imaging Services [address] [place] [address] Abdomen/Pelvis without Cont MR#: [id number] Acct: [id number] Name: MICHAEL GARCIA Rep #: [id number] : 1945 F 72 From: Javad Jalloh MD PCP: Mat Duffy MD Status: ADM IN Study: Abdomen/Pelvis without Cont Date of Exam: 11/30/17 Exam# [id number] Ordering Dr: Fahad Sesay MD STUDY: CT [...] , CC: Fahad Sesay; Mat Duffy MD Gore Seamer: Signed BEDSIDE GLUCOSE Collected: 11/30/2017 Status: F Source: ANTONITO 6:53 AM [facility] REPOSITORY TYPE CODE TESTS RESULT OUT OF RANGE REFERENCE UNITS LAB L501.080 70-110 mg/dL Normal BEDSIDE GLU 98 Result Comment: MANAGEMENT OF PATIENT CARE PER NURSING PROTOCOL Performed By: #### L501.080 #### [facility] Laboratory Point of Care [address] [place] [id number] BASIC METABOLIC Collected: 11/30/2017 Status: F Source: CHRISTOPHER PROFILE (BMP) 5:22 AM [facility] REPOSITORY TYPE CODE TESTS RESULT OUT OF [...] GAP 9 Performed By: #### L500.2500 #### [facility] Laboratory [facility] [address] [place], [place], [address] CBC W/DIFF, AUTOMATED Collected: 11/30/2017 Status: F Source: ANTONITO 5:22 AM [facility] REPOSITORY TYPE CODE TESTS RESULT OUT OF [...] Lymph 1.14 Performed By: #### L100.0100 #### [facility] Laboratory [address] [place], [address] BEDSIDE GLUCOSE Collected: 11/29/2017 Status: F Source: ANTONITO 10:45 PM [facility] REPOSITORY TYPE CODE TESTS RESULT OUT OF REFERENCE UNITS RANGE LAB L501.080 70-110 mg/dL High BEDSIDE GLU 257 Result Comment: MANAGEMENT OF PATIENT CARE PER NURSING PROTOCOL Performed By: #### L501.080 #### [facility] Laboratory Point of Care [address] [place] [address] BEDSIDE GLUCOSE Collected: 11/29/2017 Status: F Source: CHRISTOPHER 4:25 PM [facility] REPOSITORY TYPE CODE TESTS RESULT OUT OF REFERENCE UNITS RANGE LAB L501.080 70-110 mg/dL High BEDSIDE GLU 136 Result Comment: MANAGEMENT OF PATIENT CARE PER NURSING PROTOCOL Performed By: #### L501.080 #### [facility] Laboratory Point of Care [address] [place] [address] BEDSIDE GLUCOSE Collected: 11/29/2017 Status: F Source: CHRISTOPHER 10:54 AM [facility] REPOSITORY TYPE CODE TESTS RESULT OUT OF REFERENCE UNITS RANGE LAB L501.080 70-110 mg/dL High BEDSIDE GLU 177 Result Comment: MANAGEMENT OF PATIENT CARE PER NURSING PROTOCOL Performed By: #### L501.080 #### [facility] Laboratory Point of Care [address] [place] [address] TYPE AND SCREEN Collected: 11/29/2017 Status: F Source: ANTONITO 8:10 AM [facility] REPOSITORY Order Comment: CMV NEG? N Number [...] NEGATIVE Screen Performed By: #### B101.7450 #### [facility] Laboratory [address] [place] [address], [address] RC Collected: 11/29/2017 Status: F Source: ANTONITO 8:10 AM [facility] REPOSITORY TYPE CODE TESTS RESULT OUT OF REFERENCE UNITS RANGE LAB U100.0000 [id number] TRANSFUSED PRODUCT: T AND S with Crossmatch, Red Cells COUNT: 1 Performed By: #### U100.0000 #### [facility] Laboratory - refer to report for specific site RC Collected: 11/29/2017 Status: F Source: ANTONITO 8:10 AM [facility] REPOSITORY TYPE CODE TESTS RESULT OUT OF REFERENCE UNITS RANGE LAB U100.0000 [id number] TRANSFUSED PRODUCT: T AND S with Crossmatch, Red Cells COUNT: 1 Performed By: #### U100.0000 #### [facility] Laboratory - refer to report for specific site BEDSIDE GLUCOSE Collected: 11/29/2017 Status: F Source: ANTONITO 7:22 AM [facility] REPOSITORY TYPE CODE TESTS RESULT OUT OF RANGE REFERENCE UNITS LAB L501.080 70-110 mg/dL Normal BEDSIDE GLU 73 Result Comment: MANAGEMENT OF PATIENT CARE PER NURSING PROTOCOL Performed By: #### L501.080 #### [facility] Laboratory Point of Care [address] [place] [address]. [place] [address] BEDSIDE GLUCOSE Collected: 11/29/2017 Status: F Source: CHRISTOPHER 7:01 AM [facility] REPOSITORY TYPE CODE TESTS RESULT OUT OF REFERENCE UNITS RANGE LAB L501.080 70-110 mg/dL Low BEDSIDE GLU 67 Result Comment: MANAGEMENT OF PATIENT CARE PER NURSING PROTOCOL Performed By: #### L501.080 #### [facility] Laboratory Point of Care [address] [place] [address] BEDSIDE GLUCOSE Collected: 11/29/2017 Status: F Source: CHRISTOPHER 6:40 AM [facility] REPOSITORY TYPE CODE TESTS RESULT OUT OF REFERENCE UNITS RANGE LAB L501.080 70-110 mg/dL Low alert BEDSIDE GLU 33 Result Comment: MANAGEMENT OF PATIENT CARE PER NURSING PROTOCOL Performed By: #### L501.080 #### [facility] Laboratory Point of Care [address] [place] [address] CBC W/DIFF, AUTOMATED Collected: 11/29/2017 Status: F Source: CHRISTOPHER 5:24 AM [facility] REPOSITORY TYPE CODE TESTS RESULT OUT OF [...] 1.12 Performed By: #### L100.0100, L500.2500 #### [facility] [address] [place], [place], [address] BASIC METABOLIC Collected: 11/29/2017 Status: F Source: ANTONITO PROFILE (BMP) 5:24 AM [facility] REPOSITORY TYPE CODE TESTS RESULT OUT OF [...] 8 Performed By: #### L100.0100, L500.2500 #### [facility] [address] [place], [address] BEDSIDE GLUCOSE Collected: 11/28/2017 Status: F Source: CHRISTOPHER 9:23 PM [facility] REPOSITORY TYPE CODE TESTS RESULT OUT OF REFERENCE UNITS RANGE LAB L501.080 70-110 mg/dL High BEDSIDE GLU 246 Result Comment: MANAGEMENT OF PATIENT CARE PER NURSING PROTOCOL Performed By: #### L501.080 #### [facility] Point of Care [address] [place] [address] BEDSIDE GLUCOSE Collected: 11/28/2017 Status: F Source: CHRISTOPHER 5:14 PM [facility] REPOSITORY TYPE CODE TESTS RESULT OUT OF REFERENCE UNITS RANGE LAB L501.080 70-110 mg/dL High BEDSIDE GLU 243 Result Comment: MANAGEMENT OF PATIENT CARE PER NURSING PROTOCOL Performed By: #### L501.080 #### [facility] Point of Care [address] [place] [address] CHEST WITHOUT Observed: 11/28/2017 Status: F Source: CHRISTOPHER CONTRAST 12:45 PM [facility] REPOSITORY [facility] Imaging Services [address] [place] [address] Chest without Contrast MR#: [id number] Acct: [id number] Name: GARCIAMICHAEL Rep #: [id number] : 1945 F 72 From: Florencia Warren MD PCP: Mat Duffy MD Status: ADM IN Study: Chest without Contrast Date of Exam: 11/28/17 Exam# [id number] Ordering Dr: Viviana Childers BUTTER PRODUCTION SUPERVISOR-C STUDY: CT CHEST WITHOUT CONTRAST REASON FOR [...] , Service support , CC: Viviana Childers BUTTER PRODUCTION SUPERVISOR; Mat Duffy MD Gore Seamer: Signed BEDSIDE GLUCOSE Collected: 11/28/2017 Status: F Source: CHRISTOPHER 11:35 AM [facility] REPOSITORY TYPE CODE TESTS RESULT OUT OF REFERENCE UNITS RANGE LAB L501.080 70-110 mg/dL High BEDSIDE GLU 238 Result Comment: MANAGEMENT OF PATIENT CARE PER NURSING PROTOCOL Performed By: #### L501.080 #### [facility] Point of Care [address] [place] [address] BEDSIDE GLUCOSE Collected: 11/28/2017 Status: F Source: CHRISTOPHER 7:46 AM [facility] REPOSITORY TYPE CODE TESTS RESULT OUT OF RANGE REFERENCE UNITS LAB L501.080 70-110 mg/dL Normal BEDSIDE GLU 110 Result Comment: MANAGEMENT OF PATIENT CARE PER NURSING PROTOCOL Performed By: #### L501.080 #### [facility] Point of Care [address] [place] [address] BASIC METABOLIC Collected: 11/28/2017 Status: F Source: CHRISTOPHER PROFILE (BMP) 4:15 AM [facility] REPOSITORY TYPE CODE TESTS RESULT OUT OF [...] GAP 7 Performed By: #### L500.2500 #### [facility] [address] [place], [place], [address] CBC W/DIFF, AUTOMATED Collected: 11/28/2017 Status: F Source: ANTONITO 4:15 AM [facility] REPOSITORY TYPE CODE TESTS RESULT OUT OF [...] Lymph 1.18 Performed By: #### L100.0100 #### [facility] [address] [place], [place], [address] CHEST PA AND LATERAL Observed: 11/28/2017 Status: F Source: CHRISTOPHER 12:00 AM [facility] REPOSITORY [facility] [place] [address] Chest PA and Lateral MR#: [id number] Acct: [id number] Name: MICHAEL GARCIA Rep #: [id number] : 1945 F 72 From: Brett Arcos MD PCP: Mat Duffy MD Status: ADM IN Study: Chest PA and Lateral Date of Exam: 11/28/17 Exam# [id number] Ordering Dr: Rocael Valencia MD STUDY: X-RAY [...] Brett Arcos MD at 9:06 EST Tel [phone], Service support , CC: Rocael Valencia MD; Mat Duffy MD Gore Seamer: Signed BEDSIDE GLUCOSE Collected: 11/27/2017 Status: F Source: CHRISTOPHER 9:54 PM [facility] REPOSITORY TYPE CODE TESTS RESULT OUT OF REFERENCE UNITS RANGE LAB L501.080 70-110 mg/dL High BEDSIDE GLU 195 Result Comment: MANAGEMENT OF PATIENT CARE PER NURSING PROTOCOL Performed By: #### L501.080 #### [facility] Point of Care [address] [place] [address] TROPONIN-I Collected: 11/27/2017 Status: F Source: CHRISTOPHER 7:55 PM [facility] REPOSITORY Order Comment: 'TROP' Serial specimen #1, #2, #3, or #4: 4 TYPE CODE TESTS RESULT OUT OF RANGE REFERENCE UNITS LAB L501.4010 <0.06 ng/mL Normal < 0.02 TROPONIN-I Result Comment: TROPONIN-I EXPECTED VALUES <0.05 NEGATIVE 0.06 - 0.59 AT RISK OF [place] > OR = 0.60 SUGGEST [place] Performed By: #### L501.4010 #### [facility] [address] [place], [address] BEDSIDE GLUCOSE Collected: 11/27/2017 Status: F Source: CHRISTOPHER 5:36 PM [facility] REPOSITORY TYPE CODE TESTS RESULT OUT OF REFERENCE UNITS RANGE LAB L501.080 70-110 mg/dL High BEDSIDE GLU 209 Result Comment: MANAGEMENT OF PATIENT CARE PER NURSING PROTOCOL Performed By: #### L501.080 #### [facility] Point of Care [address] [place] [address] POTASSIUM Collected: 11/27/2017 Status: F Source: CHRISTOPHER 4:45 PM [facility] REPOSITORY TYPE CODE TESTS RESULT OUT OF RANGE REFERENCE UNITS LAB L501.5600 3.5-5.1 mmol/L Normal K 4.2 Performed By: #### L501.5600 #### [facility] [address] [place], [address] TROPONIN-I Collected: 11/27/2017 Status: F Source: [facility] 4:45 PM [facility] Order Comment: 'TROP' Serial specimen #1, #2, #3, or #4: 3 TYPE CODE TESTS RESULT OUT OF RANGE REFERENCE UNITS LAB L501.4010 <0.06 ng/mL Normal 0.03 TROPONIN-I Result Comment: TROPONIN-I EXPECTED VALUES <0.05 NEGATIVE 0.06 - 0.59 AT RISK OF [place] > OR = 0.60 SUGGEST [place] Performed By: #### L501.4010 #### [facility] [address] [facility] [place], [address] CONSULTATION Observed: 11/27/2017 Status: F Source: ANTONITO 4:39 PM [facility] REPOSITORY [facility] Medical Records Department [address] [place] [address] Consultation 11/27/17 1619 MR#: [id number] Acct: [id number] Name: MICHAEL GARCIA Rep #: [id number] : 1945 72 From: Reinier Lang MD PCP: Mat Duffy MD Status: ADM IN Y Location: ICU [id number] Problem List (1) Paroxysmal A-fib Status: Acute [...] Craniotomy. Psychiatric History: No pertinent psych hx REEL TENDER History: No pertinent REEL TENDER history - *Family History Maternal Family History: [...] Dr. Valencia. This note was generated with Joinnusation software. It may contain incorrect words, spelling, and punctuation that were not noted in checking the note before signing. 11/27/17 1639 <Electronically signed by Reinier Lang MD> Date Reinier Lang MD Cosigner Signature (if applicable): Date CC: Rocael Valencia MD; Darien Mcclendon MD; Ortiz Markham MD; Mat Duffy MD Signed ECHOCARDIOGRAM COMPLETE Observed: 11/27/2017 Status: F Source: ANTONITO 3:33 PM [facility] REPOSITORY [facility] Cardiovascular Services [address] [place] [address] Echo Complete W/ Contrast 11/27/17 1433 MR#: [id number] Acct: [id number] Name: MICHAEL GARCIA Rep #: [id number] : 1945 72 From: Reinier Lang MD [...] Dictated: 11/27/17 1433 Date Transcribed: 11/27/17 1532 Gore Seamer: Signed CONSULTATION Observed: 11/27/2017 Status: F Source: CHRISTOPHER 3:27 PM [facility] REPOSITORY [facility] Medical Records Department [address] [place] [address] Consultation 11/27/17 1246 MR#: [id number] Acct: [id number] Name: MICHAEL GARCIA Rep #: [id number] : 1945 72 From: Viviana RICHARDC PCP: Mat Duffy MD Status: ADM IN Y Location: ICU [id number] ADDENDUM by Rocael Valencia MD on 11/27/17 at 1527 Code [...] noted in 2016. Inpatient E AND M: [id number] Init Hosp L3 11/27/17 1527 <Electronically signed [...] 72 year old F known to pulmonary [facility], with past medical history as below who [...] Craniotomy. Psychiatric History: No pertinent psych hx REEL TENDER History: No pertinent REEL TENDER history Lives: Spouse/ Significant Other Smoking Status: [...] or concerns. This note was generated with Joinnusation software. It may contain incorrect words, spelling, and punctuation that were not noted in checking the note before signing. 11/27/17 1408 <Electronically signed by Viviana JENSEN> Date Viviana JENSEN Cosigner Signature (if applicable): Date CC: Rocael Valencia MD; Ortiz Markham MD; Mat Duffy MD Signed BEDSIDE GLUCOSE Collected: 11/27/2017 Status: F Source: CHRISTOPHER 12:12 PM [facility] REPOSITORY TYPE CODE TESTS RESULT OUT OF REFERENCE UNITS RANGE LAB L501.080 70-110 mg/dL High BEDSIDE GLU 194 Result Comment: MANAGEMENT OF PATIENT CARE PER NURSING PROTOCOL Performed By: #### L501.080 #### [facility] Point of Care [address] [place] [address] HISTORY AND PHYSICAL Observed: 11/27/2017 Status: F Source: CHRISTOPHER EXAM 12:01 PM [facility] REPOSITORY [facility] Medical Records Department [address] [place] [address] History and Physical 11/27/17 0904 MR#: [id number] Acct: [id number] Name: MICHAEL GARCIA Rep #: [id number] : 1945 72 From: Fahad Sesay MD PCP: Mat Duffy MD Status: ADM IN Y Location: ICU [id number] Problem List (1) HTN (hypertension) Status: Chronic [...] 3+ bacteria. EKG revealed sinus tachycardia, normal NH interval, normal QRS, no acute ischemic changes [...] Craniotomy. Psychiatric History: No pertinent psych hx REEL TENDER History: No pertinent REEL TENDER history Lives: Spouse/ Significant Other Smoking Status: [...] post craniectomy. This note was generated with Seedfuse dictation software. It may contain incorrect words, spelling, and punctuation that were not noted in checking the note before signing. Code Visit Inpatient E AND M: 50882 Init Hosp L3 11/27/17 1201 <Electronically signed by Fahad Sesay MD> Date Fahad Sesay MD Cosigner Signature: Date (if applicable) CC: Fahad Sesay; Mat Duffy MD Signed TROPONIN-I Collected: 11/27/2017 Status: F Source: CHRISTOPHER 9:30 AM [facility] REPOSITORY Order Comment: 'TROP' Serial specimen #1, #2, #3, or #4: 2 TYPE CODE TESTS RESULT OUT OF RANGE REFERENCE UNITS LAB L501.4010 <0.06 ng/mL Normal 0.04 TROPONIN-I Result Comment: TROPONIN-I EXPECTED VALUES <0.05 NEGATIVE 0.06 - 0.59 AT RISK OF [place] > OR = 0.60 SUGGEST [place] Performed By: #### L501.4010 #### [facility] [address] [place], [address] PROTHROMBIN TIME W/INR Collected: 11/27/2017 Status: F Source: CHRISTOPHER 9:30 AM [facility] REPOSITORY TYPE CODE TESTS RESULT OUT OF RANGE REFERENCE UNITS LAB L300.4150 11.7-14.9 SECONDS High PROTIME 16.0 LAB L300.4200 Normal INR 1.3 Performed By: #### L300.3900, L300.4310 #### [facility] [address] [place], [address] PARTIAL THROMBOPLAST Collected: 11/27/2017 Status: F Source: CHRISTOPHER TIME 9:30 AM [facility] REPOSITORY TYPE CODE TESTS RESULT OUT OF REFERENCE UNITS RANGE LAB L300.4310 24.1-36.2 Seconds High PTT 48.9 Performed By: #### L300.3900, L300.4310 #### [facility] [address] [place], [address] MAGNESIUM Collected: 11/27/2017 Status: F Source: CHRISTOPHER 9:30 AM [facility] REPOSITORY TYPE CODE TESTS RESULT OUT OF RANGE REFERENCE UNITS LAB L501.5200 1.6-2.6 mg/dL Normal MG 2.2 Result Comment: Please note revised Magnesium reference range effective 2017. Performed By: #### L501.5200, L501.9520 #### [facility] [address] [place], [address] THYROID STIM HORMONE Collected: 11/27/2017 Status: F Source: CHRISTOPHER (TSH) 9:30 AM [facility] REPOSITORY TYPE CODE TESTS RESULT OUT OF RANGE REFERENCE UNITS LAB L501.9520 0.358-3.74 uIU/mL Normal TSH 0.56 Performed By: #### L501.5200, L501.9520 #### [facility] [address] [place], [address] LIVER PROFILE Collected: 11/27/2017 Status: F Source: CHRISTOPHER 9:30 AM [facility] REPOSITORY Order Comment: Comments: from blood in [...] 0.12 Performed By: #### L500.3400, L504.2610 #### [facility] [address] [facility], [address] LDH Collected: 11/27/2017 Status: F Source: CHRISTOPHER 9:30 AM [facility] REPOSITORY Order Comment: Comments: from blood in lab. TYPE CODE TESTS RESULT OUT OF RANGE REFERENCE UNITS LAB L504.2610 84-246 U/L Normal LDH 221 Performed By: #### L500.3400, L504.2610 #### [facility] [address] [facility] [place], [address] CHEST Observed: 11/27/2017 Status: F Source: CHRISTOPHER 9:03 AM [facility] REPOSITORY [facility] Imaging Services [address] [place] [address] Chest MR#: [id number] Acct: [id number] Name: MICHAEL GARCIA Rep #: [id number] : 1945 F 72 From: Brett Arcos MD PCP: Mat Duffy MD Status: ADM IN Study: Chest Date of Exam: 11/27/17 Exam# [id number] Ordering Dr: Fahad Sesay MD STUDY: SUPERFICIAL [...] Brett Arcos MD at 15:18 EST Tel [phone], Service support , CC: Fahad Sesay; Mat Duffy MD Gore Seamer: Signed EMERGENCY DEPARTMENT Observed: 11/27/2017 Status: F Source: ANTONITO SUMMARY 7:53 AM [facility] REPOSITORY [facility] Medical Records Department [address] [place], [place] [address] [address] Emergency Department Summary 11/27/17 0723 MR#: [id number] Acct: [id number] Name: MICHAEL GARCIA Rep #: [id number] : 1945 72 From: Trevor Hamm MD [...] EKG changes This note was generated with Joinnusation software. It may contain incorrect words, spelling, [...] your Primary Care Provider. Call [facility] ([phone]) or report to the closest Emergency Room. Call 911 if necessary. 11/27/17 0753 <Electronically signed by Trevor Hamm MD> Date Trevor Hamm MD Cosigner Signature (If Indicated): Date CC: Mat Duffy MD URINALYSIS, COMPLETE Collected: 11/27/2017 Status: F Source: CHRISTOPHER 6:40 AM [facility] REPOSITORY Order Comment: Microscopic field is filled. Other elements may be obscured. How was Urine Obtained? HOSIERY LOOPER TO SPECIFY TYPE CODE TESTS RESULT OUT [...] URINE SEEN Performed By: #### L400.0001 #### [facility] [address] [facility]. [place], [place], [address] Observed: 11/27/2017 Status: F Source: CHRISTOPHER LEGIONELLA ANTIGEN 6:40 AM [facility] URINE REPOSITORY Legionella, UR Legionella Antigen result interpretation: Negative Presumptive negative for Legionella pneumophila serogroup 1 antigen in urine, suggesting no recent or current infection. Legionella Ag, Urine Negative (See interpretation below) Performed By: #### M300.4500 #### [facility] [address] [facility] [place], [address] STREP Observed: 11/27/2017 Status: F Source: [place] PNEUMONIAE ANTIG(UR,CSF) 6:40 AM [facility] REPOSITORY S pneumo Ag URINE INTERPRETATION Negative Urine Presumptive negative for pneumococcal pneumonia, suggesting no current or recent pneumococcal infection. Infection due to S pneumoniae cannot be ruled out since the antigen present in the sample may be below the detection limit of the test. Strep pneumo Test Negative URINE (See interpretation below) Performed By: #### M300.4600 #### [facility] [address] [facility]. [place], [place], [address] Observed: 11/27/2017 Status: F Source: CHRISTOPHER CULTURE, URINE 6:40 AM [facility] REPOSITORY Order Date: 11/27/17 Urine Culture ORGANISM 1: Klebsiella pneumoniae sp pneum [place] Count >100,000 Klebsiella pneumoniae sp pneum: REACTION [...] <=20 S (NF) indicates non-formulary drug at [facility]. Approval by Infectious Disease Specialist required before non-formulary drugs may be ordered and/or dispensed. Performed By: #### M100.0650 #### [facility] [address] [place], [place], [address] Observed: 11/27/2017 Status: F Source: ANTONITO CULTURE, BLOOD (WB) 6:35 AM [facility] REPOSITORY BC No growth in 5 days. Performed By: #### M200.1000 #### [facility] [address] [facility] [place], [place], [address] Observed: 11/27/2017 Status: F Source: ANTONITO INFLUENZA A+B (RAPID 6:19 AM [facility] TARAH) REPOSITORY FLU A/B Rapid Negative test results should be confirmed by culture. Order Rapid Viral Culture for Influenzae A+B (026521) if clinically indicated. Influenza Ag, Direct Presumptive NEGATIVE for Influenza A/B Antigen (See Note) Performed By: #### M101.0101 #### [facility] [address] [facility] [place], [place], [address] CHEST 1 VIEW Observed: 11/27/2017 Status: F Source: ANTONITO (PORTABLE) 6:11 AM [facility] REPOSITORY [facility] Imaging Services [address] [place] [address] Chest 1 View (Portable) MR#: [id number] Acct: [id number] Name: GARCIAMICHAEL Rose Rep #: [id number] : 1945 F 72 From: Selina Pickard MD PCP: Mat Duffy MD Status: REG ER Study: Chest 1 View (Portable) Date of Exam: 11/27/17 Exam# [id number] Ordering Dr: Trevor Hamm MD STUDY: X-RAY [...] in size possibly mildly enlarged. Electronically Signed: eSlina Pickard MD at 6:52 EST , Service support , CC: Trevor Hamm MD; Mat Duffy MD Gore Seamer: Signed CBC W/DIFF, AUTOMATED Collected: 11/27/2017 Status: F Source: CHRISTOPHER 6:05 AM [facility] REPOSITORY TYPE CODE TESTS RESULT OUT OF [...] Lymph 0.75 Performed By: #### L100.0100 #### [facility] [address] [facility] [place], [place], [address] LACTIC ACID Collected: 11/27/2017 Status: F Source: CHRISTOPHER 6:05 AM [facility] REPOSITORY Order Comment: Yes/No query for Sepsis Lactate Rule Y TYPE CODE TESTS RESULT OUT OF RANGE REFERENCE UNITS LAB L503.6005 0.4-2.0 mmol/L Normal LACTIC ACID 1.4 Performed By: #### L503.6005 #### [facility] [address] [facility] [place], [place], [address] BASIC METABOLIC Collected: 11/27/2017 Status: F Source: CHRISTOPHER PROFILE (BMP) 6:05 AM [facility] REPOSITORY Order Comment: 'TROP' Serial specimen #1, [...] 7 Performed By: #### L500.2500, L501.4010 #### [facility] [address] [facility] [place], [place], [address] TROPONIN-I Collected: 11/27/2017 Status: F Source: CHRISTOPHER 6:05 AM [facility] REPOSITORY Order Comment: 'TROP' Serial specimen #1, #2, #3, or #4: 1 TYPE CODE TESTS RESULT OUT OF RANGE REFERENCE UNITS LAB L501.4010 <0.06 ng/mL Normal < 0.02 TROPONIN-I Result Comment: TROPONIN-I EXPECTED VALUES <0.05 NEGATIVE 0.06 - 0.59 AT RISK OF [place] > OR = 0.60 SUGGEST [place] Performed By: #### L500.2500, L501.4010 #### [facility] [address] [facility]. [place], [place], [address] Observed: 11/27/2017 Status: F Source: CHRISTOPHER CULTURE, [...] Growth Growth Performed By: #### M200.1000 #### [facility] [place], [address] PROGRESS Observed: 11/10/2017 Status: COMPLETED Source: ASHIPPUN 4:08 PM [facility] REPOSITORY HNO ID: [id number] Author: Evangelina Mckeon) Service: (none) Author Type: Physician Boom Stick Worker Type: Progress Notes Filed: 11/14/2017 5:27 PM [...] Type 2 diabetes mellitus with renal manifestations ([facility]) 01/19/2016 Dr. Romeo, nephrology PAST SURGICAL HISTORY Procedure Laterality Date - ACHILLES TENDON SURGERY HX Right 1995 - BREAST BIOPSY CORE Left 2013 benign - [facility] w/bx [facility] - EGD W/O OR W/BRUSH/WASH 10/27/2017 EGD w/bx [facility] - LAPAROSCOPIC CHOLEYCYSTECTOMY Cholecystectomy, lap - [...] activity: No Social History Narrative Moved from [place] 2 years ago. Lives w/ spouse. Does [...] with more than 50% of the total atca-wk-yklp time of the visit in counseling / coordination of care. Evangelina Boyd, PA-C PROGRESS Observed: 11/07/2017 Status: COMPLETED Source: ASHIPPUN 10:24 AM [facility] REPOSITORY O ID: [id number] Author: Bereket Hammer Service: (none) Author Type: Nurse Practitioner Type: Progress Notes Filed: 11/07/2017 12:14 PM Note Text: Michael Gracia a 71 year old female who is returning for follow up regarding iron deficiency anemia. I saw the patient in consultation on 10/15/17. That note has been reviewed. . The patient was seen by Dr. Nielson for upper endoscopy and colonoscopy 10/27/17 at [facility]. The procedure and pathology reports have [...] EGD W/O OR W/BRUSH/WASH 10/27/2017 EGD w/bx [facility] - LAPAROSCOPIC CHOLEYCYSTECTOMY Cholecystectomy, lap - [...] to formulate the plan. Bereket Hammer RN PLANT FACILITIES TECHNICIAN ALLERGIES ALLERGIES DATE TYPE / CODE NAME / CODE REACTION SEVERITY SOURCE 10/21/2018 Drug No Known Unknown [facility] Allergy/416 Allergies/P72066 [facility] 214369(SNOM 0388(RXNORM) Repository ED CT) Drug NO KNOWN [facility] Class/17867 ALLERGIES Other [place] 1003(SNOMED Repository CT) [id number] NO KNOWN [facility] 6(SNOMED ALLERGIES Health [facility] CT) Repository ENCOUNTERS ENCOUNTERS ADMIT/DISCHARGE ACCOUNT NUMBER ADMITTING ENCOUNTER LOCATION SOURCE CLASS 10/28/2018/10/28/19 [id number] Ambulatory BMSBuilding: [place] [facility] BMS[facility] Repository 10/23/2018 [id number] Ambulatory [facility] ding:MEDOUT Repository 10/22/2018 [id number] Ambulatory [facility] ding:[facility]OUT Repository 10/21/2018 [id number] Ambulatory [facility] ding:MEDOUT Repository 10/21/2018/10/21/19 [id number] Ambulatory BMSBuilding: [place] 19 BMS.[facility] Repository 10/01/2018 [id number] Ambulatory [facility] ding: Repository 09/18/2018 [id number] Ambulatory [facility] ding:LAB Repository 09/09/2018/09/09/20 [id number] Ambulatory BMSBuilding: [place] 18 BMS.[facility] Repository 09/09/2018/09/09/20 [id number] Ambulatory BMSBuilding: [place] 18 BMS.[facility] Repository 09/09/2018/09/09/20 [id number] Ambulatory BMSBuilding: [place] [facility] BMS[facility] Repository 08/10/2018 [id number] [facility] Rep[facility] 07/16/2018 [id number] [facility]LAB Repository 07/16/2018 [id number] Ambulatory [place] [facility] Rep[facility] 07/03/2018/07/05/20 [id number] Ambulatory [place] Hospital ding:WC Repository 06/24/2018 [id number] [facility]LAB.FUT Repository URE 06/09/2018/06/09/20 [id number] [place]ulatory [place] [address] Hospital ding:LAB Repository 06/04/2018/06/04/20 [id number] Ambulatory BMSBuilding: [place] 18 BMS.[facility] Repository 06/03/2018 [id number] [facility]LAB.FUT Repository URE 06/02/2018 [id number] [facility] ding[facility]LAB.FUT Repository URE 06/01/2018/06/08/20 [id number] Ambulatory [place] Hospital ding:LAB Repository 05/25/2018 [id number] [facility]LAB Repository 05/19/2018/05/19/20 [id number] Ambulatory BMSBuilding: [place] 18 BMS.[facility] Repository 05/19/2018 [id number] [facility] ding[facility]PSN Repository 05/19/2018 [id number] Ambulatory BMSBuilding: Christopher [facility] Repository 05/13/2018/05/13/20 [id number] Ambulatory BMSBuilding: [place] 18 BMS.[facility] Repository 05/12/2018 [id number] [facility]LAB Repository 05/07/2018 [id number] [facility]LAB Repository 04/28/2018/04/28/20 [id number] Ambulatory BMSBuilding: [place] 18 BMS.[facility] Repository 04/21/2018 [id number] Ambulatory [facility] ding:PSN Repository 04/21/2018 [id number] [facility] 04/16/2018 [id number] Ambulatory BMSBuilding: [place] BMS.[facility] Repository 04/07/2018/04/07/20 [id number] Ambulatory BMSBuilding: [place] 18 BMS.[facility] Repository 04/07/2018/04/07/20 [id number] Ambulatory BMSBuilding: [place] 18 BMS.[facility] Repository 04/02/2018/04/02/20 [id number] Ambulatory [address] ding:[facility] Repository 04/02/2018 [id number] Ambulatory BMSBuilding: [place] BMS.CF.[facility] Repository 04/02/2018 [id number] Ambulatory BMSBuilding: [facility] Repository 03/11/2018 [id number] Ambulatory BMSBuilding: [place] BMS.[facility] Repository 03/05/2018/03/06/20 [id number] Ambulatory [address] Repository 03/05/2018/03/05/20 [id number] Ambulatory BMSBuilding: [place] 18 BMS.[facility] Repository 03/01/2018/03/03/20 [id number] Jen Rosales Inpatient [address] ding:PCURoom Repository : KTH675Awg: 1 03/01/2018 [id number] Jen Rosales Ambulatory BMSBuilding: [place] Penny BMS.[facility] Repository 03/01/2018 [id number] Jen Rosales Ambulatory BMSBuilding: [place] Penny BMS.[facility] Repository 03/01/2018/03/03/20 [id number] Ambulatory BMSBuilding: [place] Repository 03/01/2018/03/03/20 [id number] Ambulatory BMSBuilding: [address] Repository 03/01/2018/03/03/20 [id number] Ambulatory BMSBuilding: [place] 18 [facility] Repository 02/26/2018 [id number] Ambulatory [facility] ding:CVS Repository 02/26/2018 [id number] Ambulatory BMSBuilding: [place] BMS.CF.[facility] Repository 02/11/2018/02/17/20 [id number] Ambulatory [address] Repository 02/10/2018 [id number] Ambulatory [facility] ding:PSN Repository 01/22/2018/01/23/20 [id number] Ambulatory BMSBuilding: [place] 18 [facility] Repository 01/19/2018/01/23/20 [id number] [place], Inpatient [address] ding:PCURoom Repository : MML435Cyw: 1 01/19/2018 [id number] [place], Ambulatory BMSBuilding: Christopher Kombian BMS.[facility] Repository 01/19/2018 [id number] [place], Ambulatory BMSBuilding: Christopher [place]ombian BMS.[facility] Repository 01/19/2018 [id number] [place], Ambulatory BMSBuilding: Christopher Koian [facility] Repository 01/19/2018 [id number] [place], Ambulatory BMSBuilding: [place] BMS.CF.[facility] Repository 01/19/2018 [id number] [place], Ambulatory BMSBuilding: [place] BMS.[facility] Repository 01/19/2018 [id number] [place], Ambulatory BMSBuilding: [place] BMS.[facility] Repository 01/19/2018 [id number] [place], Ambulatory BMSBuilding: [place] Kombian [facility] Repository 01/19/2018 [id number] [place], Ambulatory BMSBuilding: [place] BMS.CF.[facility] Repository 01/19/2018 [id number] [place], Ambulatory BMSBuilding: [place] BMS.CF.[facility] Repository 01/19/2018 [id number] [place], Ambulatory BMSBuilding: Christopher [place] BMS.[facility] Repository 01/08/2018 [id number] Ambulatory [facility] ding:MEDOUTP Repository 01/01/2018/01/02/20 [id number] Ambulatory BMSBuilding: [place] 18 BMS.[facility] Repository 12/23/2017/12/26/19 [id number] Ambulatory [address] Repository 12/22/2017 [id number] Ambulatory [facility] ding:LAB Repository 12/12/2017/12/18/19 [id number] LASHELL, Inpatient [place] 18 BIANCA NASEEM Encounter [facility] Repository 12/12/2017/12/18/19 [id number] LASHELL, Inpatient [facility] 18 BIANCA [facility] MEDICAL Repository CENTERBuildi nRoom: 8121Bed: 12/12/2017/12/13/19 [id number] Emergency [address] ding:ED Repository 12/05/2017/12/10/19 [id number] Ambulatory BMSBuilding: [place] 18 [facility] Repository 11/27/2017/12/10/19 [id number] [place], [facility] [place] [facility] Repository : [id number]: 1 11/27/2017 [id number] [place], Ambulatory BMSBuilding: Christopher Ghasem BMS.[facility] Repository 11/27/2017 [id number] [place], Ambulatory BMSBuilding: [place] Ghasem [facility] Repository 11/27/2017 [id number] [place], Ambulatory BMSBuilding: [place] Ghasem BMS.CF.[facility] Repository 11/27/2017 [id number] [place], Ambulatory BMSBuilding: [place] Ghasem BMS.CF.[facility] Repository 11/27/2017 [id number] [place], Ambulatory BMSBuilding: Christopher Ghasem BMS.[facility] Repository 11/27/2017 [id number] [place], Ambulatory BMSBuilding: Christopher Ghasem [facility] Repository 11/27/2017 [id number] [place], Ambulatory BMSBuilding: [place] Ghasem BMS..[facility] Repository 11/27/2017 [id number] [place], Ambulatory BMSBuilding: [place] Ghasem BMS..[facility] Repository 11/27/2017 [id number] [place], Ambulatory BMSBuilding: [place] Ghasem BMS.[facility] Repository 11/27/2017 [id number] [place], Ambulatory BMSBuilding: [place] Ghasem BMS.CF.[facility] Repository 11/27/2017 [id number] [place], Ambulatory BMSBuilding: [place] Ghasem BMS.[facility] Repository 11/27/2017 [id number] [place], Ambulatory BMSBuilding: [place] Ghasem BMS..[facility] Repository 11/27/2017 [id number] [place], Ambulatory BMSBuilding: Christopher Ghasem [facility] Repository 11/27/2017 [id number] [place], Ambulatory BMSBuilding: [place] Ghasem BMS.[facility] Repository 11/27/2017 [id number] [place], Ambulatory BMSBuilding: [place] Ghasem BMS..[facility] Repository 11/27/2017 [id number] [place], Ambulatory BMSBuilding: Christopher Ghasem [facility] Repository 11/27/2017 [id number] [place], Ambulatory BMSBuilding: [place] Ghasem BMS.[facility] Repository 11/27/2017 [id number] [place], Ambulatory BMSBuilding: [place] Ghasem BMS..[facility] Repository 11/27/2017 [id number] [place], Ambulatory BMSBuilding: [place] Ghasem [facility] Repository 11/27/2017 [id number] [place], Ambulatory BMSBuilding: [place] Ghasem BMS.[facility] Repository 11/27/2017 [id number] [place], Ambulatory BMSBuilding: [place] Ghasem BMS.CF.[facility] Repository 11/27/2017 [id number] [place], Ambulatory BMSBuilding: [place] Ghasem [facility] Repository 11/27/2017 [id number] [place], Ambulatory BMSBuilding: [place] Ghasem BMS..[facility] Repository 11/27/2017 [id number] [place], Ambulatory BMSBuilding: [place] Ghasem BMS.[facility] Repository 11/27/2017 [id number] [place], Ambulatory BMSBuilding: [place] Ghasem [facility] Repository 11/27/2017 [id number] [place], Ambulatory BMSBuilding: [place] Ghasem BMS.CF.[facility] Repository 11/27/2017 [id number] [place], Ambulatory BMSBuilding: [place] Ghasem BMS.[facility] Repository 11/27/2017 [id number] [place], Ambulatory BMSBuilding: [place] Ghasem BMS.[facility] Repository 11/27/2017 [id number] [place], Ambulatory BMSBuilding: [place] Ghasem BMS.CF.[facility] Repository 11/27/2017 [id number] [place], Ambulatory BMSBuilding: [place] Ghasem BMS.[facility] Repository 11/27/2017 [id number] [place], Ambulatory BMSBuilding: [place] Ghasem [facility] Repository 11/27/2017 [id number] [place], Ambulatory BMSBuilding: [place] Ghasem BMS.CF.[facility] Repository 11/27/2017 [id number] [place], Ambulatory BMSBuilding: [place] Ghasem BMS.[facility] Repository 11/27/2017 [id number] [place], Ambulatory BMSBuilding: [place] Ghasem BMS.[facility] Repository 11/27/2017/12/10/19 [id number] Ambulatory BMSBuilding: [address] Repository 11/27/2017/12/10/19 [id number] Ambulatory BMSBuilding: [address] Repository 11/27/2017/12/10/19 [id number] Ambulatory BMSBuilding: [address] Repository 11/26/2017/11/26/19 [id number] Ambulatory [place] ding:OT Repository 11/07/2017/11/07/19 [id number] Ambulatory [address] Repository 11/07/2017/11/07/19 [id number] Ambulatory [address] Repository PAYERS PAYERS ENCOUNTER GUARANTOR PAYER SUBSCRIBER SOURCE 10/28/2018 MICHAEL Robles Primary MICHAEL Diehl [id number] Insurance:HUMANA MCCORMICKDOB: [id number] Repository [address]Ayt: 850 [id number] [phone] () Date:0116-95-14ZU [address] [place] [address]LY: 10/28/2018 Secondary NOT GIVENUNK [place] Insurance:SELF PAY [facility] Number: Effective Repository Date:2018-10-26 10/23/2018 JEY Walker Primary MICHAEL Diehl [id number] Insurance:HUMANA MCCORMICKDOB: Community [place] PPOPolicy [id number] Number: Repository [address]Qth: 850 [id number] [phone] () Date:0699-24-01JI [address] [address]PW: 10/23/2018 Secondary NOT GIVENUNK [place] Insurance:SELF PAY [facility] Number: Effective Repository Date:2018-10-21 10/22/2018 JEY Walker Primary MICHAEL Diehl [id number] Insurance:HUMANA MCCORMICKDOB: Community [place] PPOPolicy [id number][place] Number: Repository [address]Tat: 850 [id number] [phone] () Date:9085-54-96UL[address] [address]PR: 10/22/2018 Secondary NOT GIVENUNK [place] Insurance:SELF PAY [facility] Number: Effective Repository Date:2018-10-21 10/21/2018 JEY Walker Primary MICHAEL Robles [place] [id number] Insurance:HUMANA MCCORMICKDOB: Community [place] PPOPolicy [id number] Number: Repository [address]Qgp: 850 [id number] [phone] (HP) Date:8627-38-59YE [address] [address]RX: 10/21/2018 Secondary NOT GIVENUNK [place] Insurance:SELF PAY [facility] Number: Effective Repository Date:2018-10-21 10/21/2018 MICHAEL Robles Primary MICHAEL Robles [place] [id number] Insurance:HUMANA MCCORMICKDOB: Community [place] PPOPolicy [id number] Number: Repository [address]Eux: 850 [id number] [phone] (HP) Date:4175-15-83HM [place] 84[address]12[address]46[address]WP: 10/21/2018 Secondary NOT GIVENUNK [place] Insurance:SELF PAY [facility] Number: Effective Repository Date:2018-10-20 10/01/2018 JEY Walker Primary MICHAEL Robles [place] [id number] Insurance:HUMANA MCCORMICKDOB: Community [place] PPOPolicy [id number] Number: Repository [address]Vgb: 850 [id number] [phone] () Date:5290-05-06HA [address] [place] [address]BO: 10/01/2018 Secondary NOT GIVENUNK [place] Insurance:SELF PAY [facility] Number: Effective Repository Date:2018-08-25 09/18/2018 JEY Walker Primary MICHAEL Robles [place] [id number] Insurance:HUMANA MCCORMICKDOB: Community [place] PPOPolicy [id number] [place] [address] Number: Repository [address]Nst: 850 [id number] [phone] () Date:4440-15-47YN [address] [address]PS: 09/18/2018 Secondary NOT GIVENUNK [place] Insurance:SELF PAY [facility] Number: Effective Repository Date:2018-09-18 09/09/2018 JEY Walker Primary MICHAEL Diehl [id number] Insurance:HUMANA MCCORMICKDOB: Community [place] PP[place]olicy [id number] Number: Repository [address]Oza: 850 [id number] [phone] () Date:6117-95-02RH [address] [address]PN: 09/09/2018 Secondary NOT GIVENUNK [place] Insurance:SELF PAY [facility] Number: Effective Repository Date:2018-09-08 09/09/2018 JEY Walker Primary MICHAEL Diehl [id number] Insurance:HUMANA MCCORMICKDOB: Community [place] PPOPolicy [id number] Number: Repository [address]Sxs: 850 [id number] [phone] () Date:8869-05-29OM [address] [address]TJ: 09/09/2018 Secondary NOT GIVENUNK [place] Insurance:SELF PAY [facility] Number: Effective Repository Date:2018-09-09 09/09/2018 JEY Walker Primary MICHAEL Diehl [id number] Insurance:HUMANA MCCORMICKDOB: Community [place] PPOPolicy [id number] Number: Repository [address]Zju: ([phone]) [id number] [phone] () Date:3023-22-94MW [address] [address]AQ: 09/09/2018 Secondary NOT GIVENUNK [place] Insurance:SELF PAY [facility] Number: Effective Repository Date:2018-09-02 08/10/2018 JEY S Primary MICHAEL Diehl [id number] Insurance:HUMANA MCCORMICKDOB: Community [place] PP[place]icy [id number] Number: Repository [address]Hvv: 850 [id number] [phone] (HP) Date:4269-11-71PZ [address] [address]JC: 08/10/2018 Secondary NOT GIVENUNK [place] Insurance:SELF PAY [facility] Number: Effective Repository Date:2018-08-10 07/16/2018 JEY S Primary MICHAEL Robles [place] [id number] Insurance:HUMANA MCCORMICKDOB: Community [place] PP[place]olicy [id number] Number: Repository [address]Jfe: (850 [id number] [phone] (HP) Date:1444-31-23JW [address] [address]ZM: 07/16/2018 Secondary NOT GIVENUNK [place] Insurance:SELF PAY [facility] Number: Effective Repository Date:2018-07-08 07/16/2018 JEY S Primary MICHAEL Robles [place] [id number] Insurance:HUMANA MCCORMICKDOB: Community [place] PP[place]olicy [id number], [place] Number: Repository [address]Oze: (850 [id number] [phone] (HP) Date:5915-55-25IF [address] [address]VN: 07/16/2018 Secondary NOT GIVENUNK [place] Insurance:SELF PAY [facility] Number: Effective Repository Date:2018-07-06 07/03/2018 JEY S Primary MICHAEL Robles [place] [id number] Insurance:HUMANA MCCORMICKDOB: Community [place] PPOPolicy [id number], [place] Number: Repository [address]Trz: 850 [id number] [phone] (HP) Date:6268-08-27RM [address] [address]DU: 07/03/2018 Secondary NOT GIVENUNK [place] Insurance:SELF PAY [facility] Number: Effective Repository Date:2018-06-30 06/24/2018 JEY Walker Primary MICHAEL Diehl [id number] Insurance:HUMANA MCCORMICKDOB: Community [place] PPOPolicy [id number][place] Number: Repository [address]Aoh: 850 [id number] [phone] () Date:8041-42-31XR [place] 8410412-[address]WP: 06/24/2018 Secondary NOT GIVENUNK [place] Insurance:SELF PAY [facility] Number: Effective Repository Date:2018-05-25 06/09/2018 JEY Walker Primary MICHAEL Gleasonoster [id number] Insurance:HUMANA MCCORMICKDOB: Community [place] PPOPolicy [id number], [place] Number: Repository [address]Dyw: 850 [id number] [phone] () Date:0194-17-70[place] [address]WP: 06/09/2018 Secondary NOT GIVENUNK [place] Insurance:SELF PAY [facility] Number: Effective Repository Date:2018-06-09 06/04/2018 JEY Walker Primary MICHAEL Diehl [id number] Insurance:HUMANA MCCORMICKDOB: Community [place] PPOPolicy [id number], [place] Number: Repository [address]Nev: (850 [id number] [phone] () Date:0424-23-46EB[address] [address]UN: 06/04/2018 Secondary NOT GIVENUNK [place] Insurance:SELF PAY [facility] Number: Effective Repository Date:2018-06-04 06/03/2018 JEY Walker Primary MICHAEL Diehl [id number] Insurance:HUMANA MCCORMICKDOB: Community [place] PPOPolicy [id number], [place] Number: Repository [address]Ijo: (820) [id number] [phone] (HP) Date:8303-81-80QL [address] [address]YK: 06/03/2018 Secondary NOT GIVENUNK [place] Insurance:SELF PAY [facility] Number: Effective Repository Date:2018-06-03 06/02/2018 JEY S Primary MICHAEL Diehl [id number] Insurance:HUMANA MCCORMICKDOB: Community [place] PPOPolicy [id number] Number: Repository [address]Xmg: 850 [id number] [phone] () Date:9816-64-81RU [address] [address]FS: 06/02/2018 Secondary NOT GIVENUNK [place] Insurance:SELF PAY [facility] Number: Effective Repository Date:2018-05-25 06/01/2018 JEY S Primary MICHAEL Gleasonoster [id number] Insurance:HUMANA MCCORMICKDOB: Community [place] PPOPolicy [id number], [place] Number: Repository [address]Sni: 850 [id number] [phone] () Date:8790-03-43KD [address] [address]JM: 06/01/2018 Secondary NOT GIVENUNK [place] Insurance:SELF PAY [facility] Number: Effective Repository Date:2018-05-19 05/25/2018 JEY S Primary MICHAEL Diehl [id number] Insurance:HUMANA MCCORMICKDOB: Community [place] PPOPolicy [id number][place] Number: Repository [address]Rrh: (046) [id number] [phone] () Date:0291-03-01RB [address] [address]ON: 05/25/2018 Secondary NOT GIVENUNK [place] Insurance:SELF PAY [facility] Number: Effective Repository Date:2018-05-25 05/19/2018 Jey S Primary MICHAEL Diehl [id number] Insurance:HUMANA MCCORMICKDOB: Community [place] PPOPolicy [id number] Number: Repository [address]Ksq: (850 [id number] [phone] (HP) Date:0245-46-57EL [address] [address]LP: 05/19/2018 Secondary NOT GIVENUNK [place] Insurance:SELF PAY [facility] Number: Effective Repository Date:2018-04-28 05/19/2018 Jey S Primary MICHAEL Robles [place] [id number] Insurance:HUMANA MCCORMICKDOB: Community [place] PPOPolicy [id number] Number: Repository [address]Vpa: (850 [id number] [phone] (HP) Date:7394-87-27MX [address] [address]LK: 05/19/2018 Secondary NOT GIVENUNK [place] Insurance:SELF PAY [facility] Number: Effective Repository Date:2018-05-13 05/19/2018 JEY S Primary MICHAEL Robles [place] [id number] Insurance:HUMANA MCCORMICKDOB: Community [place] PPOPolicy [id number] Number: Repository 166[address]Vol: (850 [id number] [phone] (HP) Date:5785-94-23FE [address] [address]DR: 05/19/2018 Secondary NOT GIVENUNK [place] Insurance:SELF PAY [facility] Number: Effective Repository Date:2018-05-19 05/13/2018 Jey S Primary MICHAEL Gleasonoster [id number] Insurance:HUMANA MCCORMICKDOB: Community [place] PPOPolicy [id number] Number: Repository [address]Myq: 850 [id number] [phone] (HP) Date:7116-49-78HM [address] [address]BG: 05/13/2018 Secondary NOT GIVENUNK [place] Insurance:SELF PAY [facility] Number: Effective Repository Date:2018-05-06 05/12/2018 Jey Walker Primary MICHAEL Diehl [id number] Insurance:HUMANA MCCORMICKDOB: Community [place] PPOPolicy [id number] Number: Repository [address]Wlf: 850 [id number] [phone] () Date:9179-15-54JE [address] [address]UV: 05/12/2018 Secondary NOT GIVENUNK [place] Insurance:SELF PAY [facility] Number: Effective Repository Date:2018-05-12 05/07/2018 Jey Walker Primary MICHAEL Robles [place] [id number] Insurance:HUMANA MCCORMICKDOB: Community [place] PPOPolicy [id number][place] Number: Repository [address]Itk: 850 [id number] [phone] () Date:6259-05-14UM [address] [address]FL: 05/07/2018 Secondary NOT GIVENUNK [place] Insurance:SELF PAY [facility] Number: Effective Repository Date:2018-05-07 04/28/2018 Jey S Primary MICHAEL Robles [place] [id number] Insurance:HUMANA MCCORMICKDOB: Community [place] PPOPolicy [id number] Number: Repository [address]Dhe: (354) [id number] [phone] () Date:4013-12-97HB [address] [address]DR: 04/28/2018 Secondary NOT GIVENUNK [place] Insurance:SELF PAY [facility] Number: Effective Repository Date:2018-04-28 04/21/2018 Jey Walker Primary MICHAEL Robles [place] [id number] Insurance:HUMANA MCCORMICKDOB: Community [place] PPOPolicy [id number][place] Number: Repository [address]Kst: (850 [id number] [phone] (HP) Date:6408-25-39AE [address] [address]KG: 04/21/2018 Secondary NOT GIVENUNK [place] Insurance:SELF PAY [facility] Number: Effective Repository Date:2018-04-14 04/21/2018 Jey S Primary MICHAEL Diehl [id number] Insurance:HUMANA MCCORMICKDOB: [id number] [place] Number[facility] Repository [address]Mie: 850 [id number] [phone] (HP) Date:4438-27-67AW [address] [address]FE: 04/21/2018 Secondary NOT GIVENUNK [place] Insurance:SELF PAY [facility] Number: Effective Repository Date:2018-04-21 04/16/2018 Jey S Primary MICHAEL Gleasonoster [id number] Insurance:HUMANA MCCORMICKDOB: [place] MEDICARE PPOPolicy [id number] General Hospital [place] Number: Repository [address]Nzi: (850 [id number] [phone] Date:8737-61-19KY [address] [address]AK: 04/16/2018 Secondary NOT GIVENUNK [place] Insurance:SELF PAY [facility] Number: Effective Repository Date:2018-04-09 04/07/2018 Jey S Primary MICHAEL Gleasonoster [id number] Insurance:HUMANA MCCORMICKDOB: [place] MEDICARE PPOPolicy [id number] General Hospital [place] Number: Repository [address]Okc: [id number] [phone] (HP) Date:3950-05-97JV [address] [address]NG: 04/07/2018 Secondary NOT GIVENUNK [place] Insurance:SELF PAY [facility] Number: Effective Repository Date:2018-04-07 04/07/2018 Jey Walker Primary MICHAEL Robles [place] [id number] Insurance:HUMANA MCCORMICKDOB: [place] MEDICARE PPOPolicy [id number], [place] Number: Repository [address]Ogg: (850 [id number] [phone] (HP) Date:8050-37-85OB [address] [address]WI: 04/07/2018 Secondary NOT GIVENUNK [place] Insurance:SELF PAY [facility] Number: Effective Repository Date:2018-04-06 04/02/2018 Jey Walker Primary MICHAEL Robles [place] [id number] Insurance:HUMANA MCCORMICKDOB: [place] MEDICARE PPOPolicy [id number] Number: Repository [address]Kzx: [phone] [id number] [phone] (HP) Date:4142-63-46PM [address] [address]RN: 04/02/2018 Secondary NOT GIVENUNK [place] Insurance:SELF PAY [facility] Number: Effective Repository Date:2018-03-13 04/02/2018 Jey Walker Primary MICHAEL Robles [place] [id number] Insurance:HUMANA MCCORMICKDOB: [place] MEDICARE PPOPolicy [id number], [place] Number: Repository [address]Bmy: (850 [id number] [phone] (HP) Date:1680-62-57JM [address] [address]QA: 04/02/2018 Secondary NOT GIVENUNK [place] Insurance:SELF PAY [facility] Number: Effective Repository Date:2018-04-02 04/02/2018 Jey Walker Primary MICHAEL Gleasonoster [id number] Insurance:HUMANA MCCORMICKDOB: [place] MEDICARE PPOPolicy [id number], [place] Number: Repository [address]Lys: (850 [id number] [phone] (HP) Date:2057-76-21MZ [address] [place] [address]YC: 04/02/2018 Secondary NOT GIVENUNK [place] Insurance:SELF PAY [facility] Number: Effective Repository Date:2018-04-02 03/11/2018 Jey Walker Primary NOT GIVENUNK [place] [id number] Insurance:SELF PAY [facility] [place] Number: Effective Repository [id number]: 850) Date:2018-02-17 [phone] () 03/05/2018 Jey S Primary MICHAEL Diehl [id number] Insurance:HUMANA MCCORMICKDOB: [place] MEDICARE PPOPolicy [id number] General Hospital [place] Number: Repository [address]Kze: [id number] [phone] Date:2380-07-25PF [address] [place] [address]VR: 03/05/2018 Secondary NOT GIVENUNK [place] Insurance:SELF PAY [facility] Number: Effective Repository Date:2018-03-05 03/01/2018 Jey S Primary MICHAEL Robles [place] [id number] Insurance:HUMANA MCCORMICKDOB: [place] MEDICARE PPOPolicy [id number] General Hospital [place] Number: Repository [address]Vli: [id number] [phone] Date:7706-15-56UP [address] [place] [address]ZH: 03/01/2018 Secondary NOT GIVENUNK [place] Insurance:SELF PAY [facility] Number: Effective Repository Date:2018-03-01 03/01/2018 Jey S Primary MICHAEL Diehl [id number] Insurance:HUMANA MCCORMICKDOB: [place] MEDICARE PPOPolicy [id number] General Hospital [place] Number: Repository [address]Kme: [id number] [phone] Date:7918-60-72GM [address] () [address] [place] [address]DI: 03/01/2018 Secondary NOT GIVENUNK [place] Insurance:SELF PAY [facility] Number: Effective Repository Date:2018-03-01 03/01/2018 Jey Walker Primary MICHAEL Robles [place] [id number] Insurance:HUMANA MCCORMICKDOB: [place] MEDICARE PPOPolicy [id number], [place] Number: Repository [address]Eca: [id number] [phone] Date:0033-13-15HP [address] () [address] [place] [address]AL: 03/01/2018 Secondary NOT GIVENUNK [place] Insurance:SELF PAY [facility] Number: Effective Repository Date:2018-03-01 03/01/2018 Jey Walker Primary MICHAEL Robles [place] [id number] Insurance:HUMANA MCCORMICKDOB: [place] MEDICARE PPOPolicy [id number], [place] Number: Repository [address]Joy: [id number] [phone] Date:4979-24-66IU [address] () [address] [place] [address]NG: 03/01/2018 Secondary NOT GIVENUNK [place] Insurance:SELF PAY [facility] Number: Effective Repository Date:2018-03-01 03/01/2018 Jey Walker Primary MICHAEL Robles [place] [id number] Insurance:HUMANA MCCORMICKDOB: [place] MEDICARE PPOPolicy [id number], [place] Number: Repository [address]Juv: [id number] [phone] Date:7748-26-13PQ [address] [place] [address]SO: 03/01/2018 Secondary NOT GIVENUNK [place] Insurance:SELF PAY [facility] Number: Effective Repository Date:2018-03-01 03/01/2018 Jey Walker Primary MICHAEL Robles [place] [id number] Insurance:HUMANA MCCORMICKDOB: [place] MEDICARE PPOPolicy [id number], [place] Number: Repository [address]Xtg: ([phone]) [id number] [phone] Date:2251-06-84PN [address] [place] [address]XL: 03/01/2018 Secondary NOT GIVENUNK [place] Insurance:SELF PAY [facility] Number: Effective Repository Date:2018-03-01 02/26/2018 Jey S Primary MICHAEL Robles [place] [id number] Insurance:HUMANA MCCORMICKDOB: [place] MEDICARE PPOPolicy [id number], [place] Number: Repository [address]Pzb: [id number] [phone] Date:8494-29-92CY [address] [place] [address]BS: 02/26/2018 Secondary NOT GIVENUNK [place] Insurance:SELF PAY [facility] Number: Effective Repository Date:2018-02-17 02/26/2018 Jey S Primary MICHAEL Robles [place] [id number] Insurance:HUMANA MCCORMICKDOB: [facility] [place] MEDICARE PPOPolicy [id number], [place] Number: Repository [address]Crr: [id number] [phone] Date:8810-12-73DP [address] () [address] [place] [address]LZ: 02/26/2018 Secondary NOT GIVENUNK [place] Insurance:SELF PAY [facility] Number: Effective Repository Date:2018-02-26 02/10/2018 Jey S Primary MICHAEL Robles [place] [id number] Insurance:HUMANA MCCORMICKDOB: [place] MEDICARE PPOPolicy [id number], [place] Number: Repository [address]Xhl: [id number] [phone] Date:4893-00-11AI [address] [place] [address]MP: 02/10/2018 Secondary NOT GIVENUNK [place] Insurance:SELF [facility]Y [facility] Number: Effective Repository Date:2018-01-01 01/22/2018 Jey Walker Primary MICHAEL Robles [place] [id number] Insurance:HUMANA MCCORMICKDOB: [facility] [id number], [place] Number: Repository [address]Tlc: [id number] [phone] Date:6987-73-51CO [address] [place] [address]OF: 01/22/2018 Secondary NOT GIVENUNK [place] Insurance:SELF PAY [facility] Number: Effective Repository Date:2018-01-22 01/19/2018 Jey Walker Primary MICHAEL Robles [place] [id number] Insurance:HUMANA MCCORMICKDOB: [facility] [place] MEDICARE PPOPolicy [id number], [place] Number: Repository [address]Hep: [id number] [phone] Date:9577-68-94EU [address] [place] [address]NI: 01/19/2018 Secondary NOT GIVENUNK [place] Insurance:SELF PAY [facility] Number: Effective Repository Date:2018-01-19 01/19/2018 Jey Walker Primary MICHAEL Gleasonoster [id number] Insurance:HUMANA MCCORMICKDOB: [place] MEDICARE PPOPolicy [id number], [place] Number: Repository [address]Qpi: [id number] [phone] () Date:1316-95-49BN [address] [place] [address]OM: 01/19/2018 Secondary NOT GIVENUNK [place] Insurance:SELF PAY [facility] Number: Effective Repository Date:2018-01-19 01/19/2018 Jey Walker Primary MICHAEL Gleasonoster [id number] Insurance:HUMANA MCCORMICKDOB: [facility] [place] MEDICARE PPOPolicy [id number], [place] Number: Repository [address]Lyw: [id number] [phone] Date:1629-47-73ME [address] [place] [address]UZ: 01/19/2018 Secondary NOT GIVENUNK [place] Insurance:SELF PAY [facility] Effective Repository Date:2018-01-19 01/19/2018 Jey Walker Primary MICHAEL Diehl [id number] Insurance:HUMANA MCCORMICKDOB: [place] MEDICARE PPOPolicy [id number], [place] Number: Repository [address]Cgt: [id number] [phone] Date:9281-61-94BU [address] () [address] [place] [address]MO: 01/19/2018 Secondary NOT GIVENUNK [place] Insurance:SELF PAY [facility] Number: Effective Repository Date:2018-01-19 01/19/2018 Jey S Primary MICHAEL Gleasonoster [id number] Insurance:HUMANA MCCORMICKDOB: [facility] [place] MEDICARE PPOPolicy [id number], [place] Number: Repository [address]Uhq: [id number] [phone] Date:2189-19-46GK [address] () [address] [place] [address]QU: 01/19/2018 Secondary NOT GIVENUNK [place] Insurance:SELF PAY [facility] Number: Effective Repository Date:2018-01-19 01/19/2018 Jey S Primary MICHAEL Gleasonoster [id number] Insurance:HUMANA MCCORMICKDOB: [facility] [place] MEDICARE PPOPolicy [id number], [place] Number: Repository [address]Hme: [id number] [phone] Date:1700-37-25ZJ [address] () [address] [place] [address]CU: 01/19/2018 Secondary NOT GIVENUNK [place] Insurance:SELF PAY [facility] Number: Effective Repository Date:2018-01-19 01/19/2018 Jey Walker Primary MICHAEL Robles [place] [id number] Insurance:HUMANA MCCORMICKDOB: [facility] [place] MEDICARE PPOPolicy [id number], [place] Number: Repository [address]Lqz: [id number] [phone] Date:6400-10-94RY [address] [place] [address]VH: 01/19/2018 Secondary NOT GIVENUNK [place] Insurance:SELF PAY [facility] Number: Effective Repository Date:2018-01-19 01/19/2018 Jey Walker Primary MICHAEL Robles [place] [id number] Insurance:HUMANA MCCORMICKDOB: [facility] [place] MEDICARE PPOPolicy [id number], [place] Number: Repository [address]Erd: [id number] [phone] Date:0478-16-72BO [address] () [address] [place] [address]QH: 01/19/2018 Secondary NOT GIVENUNK [place] Insurance:SELF PAY [facility] Number: Effective Repository Date:2018-01-19 01/19/2018 Jey Walker Primary MICHAEL Robles [place] [id number] Insurance:HUMANA MCCORMICKDOB: [facility] [place] MEDICARE PPOPolicy [id number], [place] Number: Repository [address]Ydm: [id number] [phone] Date:3234-83-32OX [address] () [address] [place] [address]EG: 01/19/2018 Secondary NOT GIVENUNK [place] Insurance:SELF PAY [facility] Number: Effective Repository Date:2018-01-19 01/19/2018 Jey Walker Primary MICHAEL Diehl [id number] Insurance:HUMANA MCCORMICKDOB: [facility] [place] MEDICARE PPOPolicy [id number], [place] Number: Repository [address]Xit: [id number] [phone] Date:0226-23-95JC [address] () [address] [place] [address]MZ: 01/19/2018 Secondary NOT GIVENUNK [place] Insurance:SELF PAY [facility] Number: Effective Repository Date:2018-01-19 01/19/2018 Jey Walker Primary MICHAEL Robles [place] [id number] Insurance:HUMANA MCCORMICKDOB: [facility] [place] MEDICARE PPOPolicy [id number], [place] Number: Repository [address]Oam: [id number] [phone] Date:6507-26-53MP [address] () [address] [place] [address]YU: 01/19/2018 Secondary NOT GIVENUNK [place] Insurance:SELF PAY [facility] Number: Effective Repository Date:2018-01-19 01/08/2018 Jey Walker Primary MICHAEL Robles [place] [id number] Insurance:HUMANA MCCORMICKDOB: [facility] [place] MEDICARE PPOPolicy [id number], [place] Number: Repository [address]Xem: [id number] [phone] Date:3345-00-84LJ [address] [place] [address]EK: 01/08/2018 Secondary NOT GIVENUNK [place] Insurance:SELF PAY [facility] Number: Effective Repository Date:2018-01-06 01/01/2018 Jey Walker Primary MICHAEL Robles [place] [id number] Insurance:HUMANA MCCORMICKDOB: [facility] [place] MEDICARE PPOPolicy [id number], [place] Number: Repository [address]Aod: [id number] [phone] Date:0473-45-01MU [address] () [address] [place] [address]AT: 01/01/2018 Secondary NOT GIVENUNK [place] Insurance:SELF PAY [facility] Number: Effective Repository Date:2017-12-30 12/22/2017 Jey S Primary MICHAEL Robles [place] [id number] Insurance:HUMANA MCCORMICKDOB: [facility] [place] MEDICARE PPOPolicy [id number], [place] Number: Repository [address]Avx: [id number] [phone] Date:1432-84-46MJ [address] [place] [address]UN: 12/22/2017 Secondary NOT GIVENUNK [place] Insurance:SELF PAY [facility] Number: Effective Repository Date:2017-12-22 12/12/2017 MICHAEL Robles Primary MICHAEL Robles [place] [facility] MCCORMICKDOB: Insurance:HUMANA MCCORMICKDOB: [facility] MEDICARE PPOPolicy [id number][facility] Number: [place] [id number]: (032) Date: 036719 () 12/12/2017 Jey Walker Primary MICHAEL Robles [place] [id number] Insurance:HUMANA MCCORMICKDOB: [facility] [place] MEDICARE PPOPolicy [id number], [place] Number: Repository [address]Yxo: [id number] [phone] Date:9108-39-72WR [address] [place] [address]TS: 12/12/2017 Secondary NOT GIVENUNK [place] Insurance:SELF PAY [facility] Number: Effective Repository Date:2017-12-12 12/05/2017 Jey S Primary MICHAEL Robles [place] [id number] Insurance:HUMANA MCCORMICKDOB: [facility] [place] MEDICARE PPOPolicy [id number], [place] Number: Repository [address]Mfs: [id number] [phone] Date:5102-83-39MU [address] [place] [address]FB: 12/05/2017 Secondary NOT GIVENUNK [place] Insurance:SELF PAY [facility] Number: Effective Repository Date:2017-12-05 11/27/2017 Jey S Primary MICHAEL Robles [place] [id number] Insurance:HUMANA MCCORMICKDOB: [facility] [place] MEDICARE PPOPolicy [id number], [place] Number: Repository [address]Vos: [id number] [phone] Date:9713-51-97SR [address] (HP) [address] [place] [address]HH: 11/27/2017 Secondary NOT GIVENUNK [place] Insurance:SELF PAY [facility] Number: Effective Repository Date:2017-11-27 11/27/2017 Jey S Primary MICHAEL Robles [place] [id number] Insurance:HUMANA MCCORMICKDOB: [facility] [place] MEDICARE PPOPolicy [id number], [place] Number: Repository [address]Wbi: [id number] [phone] Date:6397-90-98YL [address] [place] [address]CE: 11/27/2017 Secondary NOT GIVENUNK [place] Insurance:SELF PAY [facility] Number: Effective Repository Date:2017-11-27 11/27/2017 Jey S Primary MICHAEL Robles [place] [id number] Insurance:HUMANA MCCORMICKDOB: [facility] [place] MEDICARE PPOPolicy [id number], [place] Number: Repository [address]Epj: [id number] [phone] Date:5318-41-89UN [address] [place] [address]FA: 11/27/2017 Secondary NOT GIVENUNK [place] Insurance:SELF PAY [facility] Number: Effective Repository Date:2017-11-27 11/27/2017 Jey S Primary MICHAEL Robles [place] [id number] Insurance:HUMANA MCCORMICKDOB: [facility] [place] MEDICARE PPOPolicy [id number], [place] Number: Repository [address]Eyw: [id number] [phone] Date:1032-86-02FI [address] (HP) [address] [place] [address]QF: 11/27/2017 Secondary NOT GIVENUNK [place] Insurance:SELF PAY [facility] Number: Effective Repository Date:2017-11-27 11/27/2017 Jey Walker Primary MICHAEL Diehl [id number] Insurance:HUMANA MCCORMICKDOB: [facility] [place] MEDICARE PPOPolicy [id number], [place] Number: Repository [address]Ygp: [id number] [phone] Date:8547-68-49YJ [address] [place] [address]XJ: 11/27/2017 Secondary NOT GIVENUNK [place] Insurance:SELF PAY [facility] Number: Effective Repository Date:2017-11-27 11/27/2017 Jey Walker Primary MICHAEL Robels [place] [id number] Insurance:HUMANA MCCORMICKDOB: [facility] [place] MEDICARE PPOPolicy [id number], [place] Number: Repository [address]Doj: [id number] [phone] Date:3368-83-73BH [address] [place] [address]HI: 11/27/2017 Secondary NOT GIVENUNK [place] Insurance:SELF PAY [facility] Number: Effective Repository Date:2017-11-27 11/27/2017 Jey S Primary MICHAEL Robles [place] [id number] Insurance:HUMANA MCCORMICKDOB: [facility] [place] MEDICARE PPOPolicy [id number], [place] Number: Repository [address]Gmh: [id number] [phone] Date:8236-94-65XQ [address] [place] [address]NP: 11/27/2017 Secondary NOT GIVENUNK [place] Insurance:SELF PAY [facility] Number: Effective Repository Date:2017-11-27 11/27/2017 Jey S Primary MICHAEL Robles [place] [id number] Insurance:HUMANA MCCORMICKDOB: [facility] [place] MEDICARE PPOPolicy [id number], [place] Number: Repository [address]Mfr: [id number] [phone] Date:6729-92-85AX [address] (HP) [address] [place] [address]ML: 11/27/2017 Secondary NOT GIVENUNK [place] Insurance:SELF PAY [facility] Number: Effective Repository Date:2017-11-27 11/27/2017 Jey S Primary MICHAEL Robles [place] [id number] Insurance:HUMANA MCCORMICKDOB: [facility] [place] MEDICARE PPOPolicy [id number] General Hospital [place] Number: Repository [address]Ovs: [id number] [phone] Date:9900-59-99US [address] (HP) [address] [place] [address]MU: 11/27/2017 Secondary NOT GIVENUNK [place] Insurance:SELF PAY [facility] Number: Effective Repository Date:2017-11-27 11/27/2017 Jey S Primary MICHAEL Robles [place] [id number] Insurance:HUMANA MCCORMICKDOB: [facility] [place] MEDICARE PPOPolicy [id number], [place] Number: Repository [address]Wha: [id number] [phone] Date:0995-84-09DW [address] [place] [address]XL: 11/27/2017 Secondary NOT GIVENUNK [place] Insurance:SELF PAY [facility] Number: Effective Repository Date:2017-11-27 11/27/2017 Jey S Primary MICHAEL Robles [place] [id number] Insurance:HUMANA MCCORMICKDOB: [facility] [place] MEDICARE PPOPolicy [id number], [place] Number: Repository [address]Qol: [id number] [phone] Date:9092-47-69FM [address] (HP) [address] [place] [address]KC: 11/27/2017 Secondary NOT GIVENUNK [place] Insurance:SELF PAY [facility] Number: Effective Repository Date:2017-11-27 11/27/2017 Jey Walker Primary MICHAEL Robles [place] [id number] Insurance:HUMANA MCCORMICKDOB: [facility] [place] MEDICARE PPOPolicy [id number], [place] Number: Repository [address]Tls: [id number] [phone] Date:3088-41-64RL [address] [place] [address]10[address]DK: 11/27/2017 Secondary NOT GIVENUNK [place] Insurance:SELF PAY [facility] Number: Effective Repository Date:2017-11-27 11/27/2017 Jey Walker Primary MICHAEL Robles [place] [id number] Insurance:HUMANA MCCORMICKDOB: [facility] [place] MEDICARE PPOPolicy [id number], [place] Number: Repository [address]Dti: [id number] [phone] Date:2591-30-78ZF [address] [place] [address]NM: 11/27/2017 Secondary NOT GIVENUNK [place] Insurance:SELF PAY [facility] Number: Effective Repository Date:2017-11-27 11/27/2017 Jey S Primary MICHAEL Gleasonoster [id number] Insurance:HUMANA MCCORMICKDOB: [facility] [place] MEDICARE PPOPolicy [id number], [place] Number: Repository [address]Onb: [id number] [phone] Date:1106-69-77HF [address] [place] [address]59[address]WD: 11/27/2017 Secondary NOT GIVENUNK [place] Insurance:SELF PAY [facility] Number: Effective Repository Date:2017-11-27 11/27/2017 Jey S Primary MICHAEL Diehl [id number] Insurance:HUMANA MCCORMICKDOB: [facility] [place] MEDICARE PPOPolicy [id number], [place] Number: Repository [address]Qaw: [id number] [phone] Date:5579-97-64VQ [address] [place] [address]XB: 11/27/2017 Secondary NOT GIVENUNK [place] Insurance:SELF PAY [facility] Number: Effective Repository Date:2017-11-27 11/27/2017 Jey S Primary MICHAEL Diehl [id number] Insurance:HUMANA MCCORMICKDOB: [facility] MEDICARE OPolicy [id number], [place] Number: Repository [address]Ghm: [id number] [phone] Date:4289-44-23GN [address] [place] [address]FS: 11/27/2017 Secondary NOT GIVENUNK [place] Insurance:SELF PAY [facility] Number: Effective Repository Date:2017-11-27 11/27/2017 Jey S Primary MICHAEL Gleasonoster [id number] Insurance:HUMANA MCCORMICKDOB: [facility] MEDICARE [facility] [id number], [place] Number: Repository [address]Nyo: [id number] [phone] Date:[id number] [address] () [address] [place] [id number]: 11/27/2017 Secondary NOT GIVENUNK [place] Insurance:SELF PAY [facility] Number: Effective Repository Date:2017-11-27 11/27/2017 Jey S Primary MICHAEL Gleasonoster [id number] Insurance:HUMANA MCCORMICKDOB: [facility] [place] MEDICARE PPOPolicy [id number] Number: Repository [id number]: [id number] [phone] Date:[id number] [address] () [address] [place] [id number]: 11/27/2017 Secondary NOT GIVENUNK Christopher Insurance:SELF PAY [facility] Number: Effective Repository Date:2017-11-27 11/27/2017 Jey Walker Primary MICHAEL Diehl [id number] Insurance:HUMANA MCCORMICKDOB: [place] MED[place]ARE PPOPolicy [id number] Number: Repository [address]Jtf: [id number] [phone] Date:5143-23-40SD [address] () [address] [place] [address]LP: 11/27/2017 Secondary NOT GIVENUNK Christopher Insurance:SELF PAY [facility] Number: Effective Repository Date:2017-11-27 11/27/2017 Jey Walker Primary MICHAEL Robles [place] [id number] Insurance:HUMANA MCCORMICKDOB: [place] MEDICARE PPOPolicy [id number] Number: Repository [address]Gpt: [id number] [phone] Date:1500-54-87XU [address] () [address] [place] [address]UD: 11/27/2017 Secondary NOT GIVENUNK Christopher Insurance:SELF PAY [facility] Number: Effective Repository Date:2017-11-27 11/27/2017 Jey Walker Primary MICHAEL Gleasonoster [id number] Insurance:HUMANA MCCORMICKDOB: [place] MEDICARE PPOPolicy [id number], [place] Number: Repository [address]Cpz: [id number] [phone] Date:7608-46-83IN [address] () [address] [place] [address]YC: 11/27/2017 Secondary NOT GIVENUNK [place] Insurance:SELF PAY [facility] Number: Effective Repository Date:2017-11-27 11/27/2017 Jey Walker Primary MICHAEL Gleasonoster [id number] Insurance:HUMANA MCCORMICKDOB: [place] MEDICARE PPOPolicy [id number], [place] Number: Repository [address]Elt: [id number] [phone] Date:9739-31-70FT [address] () [address] [place] [address]BB: 11/27/2017 Secondary NOT GIVENUNK Christopher Insurance:SELF PAY [facility] Number: Effective Repository Date:2017-11-27 11/27/2017 Jey Walker Primary MICHAEL Robles [place] [id number] Insurance:HUMANA MCCORMICKDOB: [place] MEDICARE PPOPolicy [id number], [place] Number: Repository [address]Tmk: [id number] [phone] Date:7360-93-92WA [address] () [address] [place] [address]RF: 11/27/2017 Secondary NOT GIVENUNK Christopher Insurance:SELF PAY [facility] Number: Effective Repository Date:2017-11-27 11/27/2017 Jey S Primary MICHAEL Robles [place] [id number] Insurance:HUMANA MCCORMICKDOB: [place] MEDICARE PPOPolicy [id number], [place] Number: Repository [address]Yuu: [id number] [phone] Date:5056-59-55TD [address] () [address] [place] [address]TS: 11/27/2017 Secondary NOT GIVENUNK Christopher Insurance:SELF PAY [facility] Number: Effective Repository Date:2017-11-27 11/27/2017 Jey Walker Primary MICHAEL Robles [place] [id number] Insurance:HUMANA MCCORMICKDOB: [place] MEDICARE PPOPolicy [id number], [place] Number: Repository [address]Sel: [id number] [phone] Date:8202-26-46SZ [address] () [address] [place] [phone]: 11/27/2017 Secondary NOT GIVENUNK [place] Insurance:SELF PAY [facility] Number: Effective Repository Date:2017-11-27 11/27/2017 Jey S Primary MICHAEL Robles [place] [id number] Insurance:HUMANA MCCORMICKDOB: [place] MEDICARE PPOPolicy [id number], [place] Number: Repository [address]Wix: [id number] [phone] Date:3199-56-51EB [address] (HP) [address] [place] [address]RY: 11/27/2017 Secondary NOT GIVENUNK [place] Insurance:SELF PAY [facility] Number: Effective Repository Date:2017-11-27 11/27/2017 Jey S Primary MICHAEL Robles [place] [id number] Insurance:HUMANA MCCORMICKDOB: [place] MEDICARE PPOPolicy [id number], [place] Number: Repository [address]Lkn: [id number] [phone] Date:9842-79-13EC [address] () [address] [place] [address]QK: 11/27/2017 Secondary NOT GIVENUNK Christopher Insurance:SELF PAY [facility] Number: Effective Repository Date:2017-11-27 11/27/2017 Jey S Primary MICHAEL Robles [place] [id number] Insurance:HUMANA MCCORMICKDOB: [place] MEDICARE PPOPolicy [id number], [place] Number: Repository [address]Oep: [id number] [phone] Date:7719-04-36TW [address] () [address] [place] [phone]: 11/27/2017 Secondary NOT GIVENUNK [place] Insurance:SELF PAY [facility] Number: Effective Repository Date:2017-11-27 11/27/2017 Jey S Primary MICHAEL Robles [place] [id number] Insurance:HUMANA MCCORMICKDOB: [place] MEDICARE PPOPolicy [id number], [place] Number: Repository [address]Ouf: [id number] [phone] Date:1953-99-66NP [address] (HP) [address] [place] [address]WZ: 11/27/2017 Secondary NOT GIVENUNK Christopher Insurance:SELF PAY [facility] Effective Repository Date:2017-11-27 11/27/2017 Jey Walker Primary MICHAEL Diehl [id number] Insurance:HUMANA MCCORMICKDOB: [place] MEDICARE PPOPolicy [id number], [place] Number: Repository [address]Rju: [id number] [phone] Date:9849-17-16US [address] () [address] [place] [address]SL: 11/27/2017 Secondary NOT GIVENUNK Christopher Insurance:SELF PAY [facility] Number: Effective Repository Date:2017-11-27 11/27/2017 Jey Walker Primary MICHAEL Robles [place] [id number] Insurance:HUMANA MCCORMICKDOB: [place] MEDICARE PPOPolicy [id number], [place] Number: Repository [address]Ofg: [id number] [phone] Date:6366-64-94JL [address] () [address] [place] [address]BA: 11/27/2017 Secondary NOT GIVENUNK [place] Insurance:SELF PAY [facility] Number: Effective Repository Date:2017-11-27 11/27/2017 Jey S Primary MICHAEL Robles [place] [id number] Insurance:HUMANA MCCORMICKDOB: [place] MEDICARE PPOPolicy [id number], [place] Number: Repository [address]Zfp: [id number] [phone] Date:6239-53-26NZ [address] () [address] [place] [address]ZQ: 11/27/2017 Secondary NOT GIVENUNK [place] Insurance:SELF PAY [facility] Number: Effective Repository Date:2017-11-27 11/27/2017 Jey S Primary MICHAEL Robles [place] [id number] Insurance:HUMANA MCCORMICKDOB: [place] MEDICARE PPOPolicy [id number], [place] Number: Repository [address]Eas: [id number] [phone] Date:0415-86-10JF [address] (HP) [address] [place] [address]TC: 11/27/2017 Secondary NOT GIVENUNK [place] Insurance:SELF PAY [facility] Number: Effective Repository Date:2017-11-27 11/27/2017 Jey S Primary MICHAEL Robles [place] [id number] Insurance:HUMANA MCCORMICKDOB: [place] MEDICARE PPOPolicy [id number] [place] Number: Repository [address]Uyv: [id number] [phone] Date:1511-98-71VM [address] (HP) [address] [place] [phone]: 11/27/2017 Secondary NOT GIVENUNK [place] Insurance:SELF PAY [facility] Number: Effective Repository Date:2017-11-27 11/27/2017 Jey S Primary MICHAEL Robles [place] [id number] Insurance:HUMANA MCCORMICKDOB: [place] MEDICARE PPOPolicy [id number], [place] Number: Repository [address]Lwg: [id number] [phone] Date:9562-18-54FS [address] () [address] [place] [address]DM: 11/27/2017 Secondary NOT GIVENUNK [place] Insurance:SELF PAY [facility] Number: Effective Repository Date:2017-11-27 11/27/2017 Jey S Primary MICHAEL Robles [place] [id number] Insurance:HUMANA MCCORMICKDOB: [place] MEDICARE PPOPolicy [id number], [place] Number: Repository [address]Uoi: [id number] [phone] Date:6664-64-50FA [address] (HP) [address] [place] [address]RZ: 11/27/2017 Secondary NOT GIVENUNK [place] Insurance:SELF PAY [facility] Effective Repository Date:2017-11-27 11/27/2017 Jey Walker Primary MICHAEL Diehl [id number] Insurance:HUMANA MCCORMICKDOB: [place] MEDICARE PPOPolicy [id number], [place] Number: Repository [address]Nhv: [id number] [phone] Date:5636-96-35ID [address] () [address] [place] [address]UB: 11/27/2017 Secondary NOT GIVENUNK [place] Insurance:SELF PAY [facility] Number: Effective Repository Date:2017-11-27 11/27/2017 Jey Walker Primary MICHAEL Diehl [id number] Insurance:HUMANA MCCORMICKDOB: [place] MEDICARE PPOPolicy [id number], [place] Number: Repository [address]Jjr: [id number] [phone] Date:8389-99-74FB [address] () [address] [place] [address]HS: 11/27/2017 Secondary NOT GIVENUNK [place] Insurance:SELF PAY [facility] Number: Effective Repository Date:2017-11-27 11/26/2017 Jey Walker Primary MICHAEL Diehl [id number] Insurance:HUMANA MCCORMICKDOB: [place] MEDICARE PPOPolicy [id number], [place] Number: Repository [address]Ics: [id number] [phone] Date:7182-35-37AC [address] () [address] [place] [address]JX: 11/26/2017 Secondary NOT GIVENUNK [place] Insurance:SELF PAY [facility] Number: Effective Repository Date:2017-10-23
== END ==
PROVIDERS: Family Provider Family Medicine; PCP Internal Medicine; Visit Provider Physician Assistant Medical
DX: I50.9 Heart failure, unspecified (principal)
CPT/HCPCS: 96374; A4216; J1940

== ENCOUNTER → 2018-10-22 11:44 | Outpatient (CLI) | payer MEDICARE, SELFPAY ==
[2018-10-21 15:56] VITALS: BMI 39.6
[2018-10-22 12:16] VITALS: BP 137/75; PULSE 56; RESP 18; TEMP 36.6; O2SAT 96
[2018-10-22] MEDS: Furosemide 40 MG/4 ML Vial 80 MG IV (12:21)
--- OUTSIDE RECORDS SUMMARY | 2018-12-27 03:20 | XMS RPT_ITS ---
:1945 Author Organization OHIP Support Name Relationship Address Phone JOSE JEY Unavailable [address] [phone] [place] [address] NORBERT GARCIA Unavailable [address] + [place] [address] R Unavailable Unavailable Unavailable JEY GARCIA Unavailable [address] [phone] [place] [address] NORBERT GARCIA Unavailable [address] + [place] [address] R Unavailable Unavailable Unavailable JEY AGRCIA Unavailable [address] [phone] [place] [address] NORBERT GARCIA Unavailable [address] + [place] [address] R Unavailable Unavailable Unavailable JEY GARCIA Unavailable [address] [phone] [place] [address] NORBERT GARCIA Unavailable [address] + [place] [address] R Unavailable Unavailable Unavailable JEY GARCIA Unavailable [address] [phone] [place] [address] NORBERT GARCIA Unavailable [address] + [place] [address] R Unavailable Unavailable Unavailable JEY GARCIA Unavailable [address] [phone] [place] [address] NORBERT GARCIA Unavailable [address] + [place] [address] R Unavailable Unavailable Unavailable JEY GARCIA Unavailable [address] [phone] [place] [address] NORBERT GARCIA Unavailable [address] + [place] [address] R Unavailable Unavailable Unavailable JEY GARCIA Unavailable [address] [phone] [place] [address] NORBERT GARCIA Unavailable [address] + [place] [address] R Unavailable Unavailable Unavailable JEY GARCIA Unavailable [address] [phone] [place] [address] NORBERT GARCIA Unavailable [address] + [place] [address] R Unavailable Unavailable Unavailable JEY GARCIA Unavailable [address] [phone] [place] [address] NORBERT GARCIA Unavailable [address] + [place] [address] R Unavailable Unavailable Unavailable JEY GARCIA Unavailable [address] [place] [address] [place] [address] NORBERT GARCIA Unavailable [address] + [place] [address] R Unavailable Unavailable Unavailable JEY GARCIA Unavailable [address] [phone] [place] [address] NORBERT GARCIA Unavailable [address] + [place] [address] R Unavailable Unavailable Unavailable JEY GARCIA Unavailable [address] [facility]([phone] [place] [address] NORBERT GARCIA Unavailable [address] + [place] [address] R Unavailable Unavailable Unavailable JEY GARCIA Unavailable [address] [phone] [place] [address] NORBERT GARCIA Unavailable [address] + [place] [address] R Unavailable Unavailable Unavailable JEY GARCIA Unavailable [address] [phone] [place] [address] NORBERT GARCIA Unavailable [address] + [place] [address] R Unavailable Unavailable Unavailable JEY GARCIA Unavailable [address] [phone] [place] [address] NORBERT GARCIA Unavailable [address] + [place] [address] R Unavailable Unavailable Unavailable JEY GARCIA Unavailable [address] [phone] [place] [address] NORBERT GARCIA Unavailable [address] [phone] [place] [address] R Unavailable Unavailable Unavailable JEY GARCIA Unavailable [address] [facility]([phone] [place] [address] NORBERT GARCIA Unavailable [address] [facility]([phone]) [phone] [place] [address] R Unavailable Unavailable Unavailable JOSE JEY Unavailable [address] [facility]([phone] [place] [address] NORBERT GARCIA Unavailable [address] [phone] [place] [address] R Unavailable Unavailable Unavailable JOSE JEY Unavailable [address] [facility]([phone] [place] [address] JOSE GARCIAELLE Unavailable [address] [facility]([phone] [place] [address] R Unavailable Unavailable Unavailable JEY GARCIA Unavailable [address] [facility]([phone] [place] [address] NORBERT GARCIA Unavailable [address] [facility]([phone] [place] [address] R Unavailable Unavailable Unavailable JEY GARCIA Unavailable [address] [facility]([phone]) [phone] [place] [address] NORBERT GARCIA Unavailable [address] [facility]([phone] [place] [address] R Unavailable Unavailable Unavailable JEY GARCIA Unavailable [address] [phone] [place] [address] JOSE GARCIAELLE Unavailable [address] [facility]([phone] [place] [address] R Unavailable Unavailable Unavailable JEY GARCIA Unavailable [address] [phone] [place] [address] NORBERT GARCIA Unavailable [address] [phone] [place] [address] R Unavailable Unavailable Unavailable JEY GARCIA Unavailable [address] [facility]([phone] [place] [address] JOSE GARCIAELLE Unavailable [address] [phone] [place] [address] R Unavailable Unavailable Unavailable GARCIA, JEY Unavailable [address] [facility]([phone] [place] [address] NORBERT GARCIA Unavailable [address] [phone] [place] [address] R Unavailable Unavailable Unavailable GARCIA, JEY Unavailable [address] [phone] [place] [address] NORBERT GARCIA Unavailable [address] [facility]([phone] [place] [address] R Unavailable Unavailable Unavailable GARCIA, JEY Unavailable [address] [facility]([phone] [place] [address] JOSE GARCIAELLE Unavailable [address] [facility]([phone] [place] [address] R Unavailable Unavailable Unavailable GARCIA, JEY Unavailable [address] [phone] [place] [address] JOSE GARCIAELLE Unavailable [address] [facility]([phone] [place] [address] R Unavailable Unavailable Unavailable GARCIA JEY Unavailable [address] [phone] [place] [address] NORBERT GARCIA Unavailable [address] [facility]([phone] [place] [address] R Unavailable Unavailable Unavailable GARCIA JEY Unavailable [address] [facility]([phone] [place] [address] NORBERT GARCIA Unavailable [address] [facility]([phone] [place] [address] R Unavailable Unavailable Unavailable JEY GARCIA Unavailable [address] [facility]([phone] [place] [address] NORBERT GARCIA Unavailable [address] [facility]([phone] [place] [address] R Unavailable Unavailable Unavailable JOSE JEY Unavailable [address] [facility]([phone] [place] [address] NORBERT GARCIA Unavailable [address] [facility]([phone]) [phone] [place] [address] R Unavailable Unavailable Unavailable JEY GARCIA Unavailable [address] [phone] [place] [address] NORBERT GARCIA Unavailable Unavailable + [place] [address] R Unavailable Unavailable Unavailable GARCIA, JEY Unavailable [address] [facility]([phone] [place] [address] NORBERT GARCIA Unavailable Unavailable + [place] [address] R Unavailable Unavailable Unavailable JEY GARCIA Unavailable [address] [facility]([phone] [place] [address] JOSE GARCIAELLE Unavailable [address] [facility]([phone] [place] [address] R Unavailable Unavailable Unavailable GARCIAJEY Unavailable [address] [facility]([phone]) [phone] [place] [address] NORBERT GARCIA Unavailable Unavailable + [place] [address] R Unavailable Unavailable Unavailable JEY GARCIA Unavailable [address] [facility]([phone] [place] [address] NORBERT GARCIA Unavailable . + [place] [address] R Unavailable Unavailable Unavailable JEY GARCIA Unavailable [address] [facility]([phone] [place] [address] NORBERT GARCIA Unavailable Unavailable + [place] [address] R Unavailable Unavailable Unavailable JEY GARCIA Unavailable [address] [facility]([phone] [place] [address] NORBERT GARCIA Unavailable Unavailable + [place] [address] R Unavailable Unavailable Unavailable JEY GARCIA Unavailable [address] [facility]([phone] [place] [address] NORBERT GARCIA Unavailable Unavailable + [place] [address] R Unavailable Unavailable Unavailable GARCIAJEY LEE Unavailable [address] [facility]([phone] [place] [address] NORBERT GARCIA Unavailable . + [place] [address] R Unavailable Unavailable Unavailable GARCIA, JEY Unavailable [address] [facility]([phone] [place] [address] NORBERT GARCIA Unavailable Unavailable + [place] [address] R Unavailable Unavailable Unavailable GARCIAJEY LEE Unavailable [address] [facility]([phone] [place] [address] NORBERT GARCIA Unavailable [address] [facility]([phone] [place] [address] R Unavailable Unavailable Unavailable GARCIA, JOHN Unavailable [address] [facility]([phone] [place] [address] NORBERT GARCIA Unavailable Unavailable + [place] [address] R Unavailable Unavailable Unavailable GARCIAJEY LEE Unavailable [address] [facility]([phone] [place] [address] NORBERT GARCIA Unavailable . + [place] [address] R Unavailable Unavailable Unavailable GARCIAJEY LEE Unavailable [address] [facility]([phone] [place] [address] NORBERT GARCIA Unavailable Unavailable + [place] [address] R Unavailable Unavailable Unavailable GARCIAJEY LEE Unavailable [address] [facility]([phone] [place] [address] NORBERT GARCIA Unavailable Unavailable + [place] [address] R Unavailable Unavailable Unavailable GARCIAJEY LEE Unavailable [address] [facility]([phone] [place] [address] NORBERT GARCIA Unavailable Unavailable + [place] [address] R Unavailable Unavailable Unavailable GARCIA, JOHN Unavailable [address] [facility]([phone] [place] [address] NORBERT GARCIA Unavailable [address] [facility]([phone]) [phone] [place] [address] R Unavailable Unavailable Unavailable GARCIAJEY Unavailable [address] [facility]([phone] [place] [address] NORBERT GARCIA Unavailable Unavailable + [place] [address] R Unavailable Unavailable Unavailable GARCIAJEY LEE Unavailable [address] [facility]([phone]) [phone] [place] [address] NORBERT GARCIA Unavailable Unavailable + [place] [address] R Unavailable Unavailable Unavailable GARCIAJEY Unavailable [address] [facility]([phone]) [phone] [place] [address] NORBERT GARCIA Unavailable Unavailable + [place] [address] R Unavailable Unavailable Unavailable GARCIA, JEY Unavailable [address] [facility]([phone] [place] [address] NORBERT GARCIA Unavailable Unavailable + [place] [address] R Unavailable Unavailable Unavailable JEY GARCIA Unavailable [address] [facility]([phone] [place] [address] JOSE NORBERT Unavailable Unavailable + [place] [address] R Unavailable Unavailable Unavailable GARCIAJEY LEE Unavailable [address] [facility]([phone] [place] [address] JOSE NORBERT Unavailable Unavailable + [place] [address] R Unavailable Unavailable Unavailable JEY GARCIA Unavailable [address] [facility]([phone] [place] [address] JOSE GARCIAELLE Unavailable Unavailable + [place] [address] R Unavailable Unavailable Unavailable JEY GARCIA Unavailable [address] [facility]([phone] [place] [address] NORBERT GARCIA Unavailable Unavailable + [place] [address] R Unavailable Unavailable Unavailable JEY GARCIA Unavailable [address] [facility]([phone]) [phone] [place] [address] NORBERT GARCIA Unavailable Unavailable + [place] [address] R Unavailable Unavailable Unavailable JEY GARCIA Unavailable [address] [facility]([phone] [place] [address] NORBERT GARCIA Unavailable Unavailable + [place] [address] R Unavailable Unavailable Unavailable GARCIAJEY LEE Unavailable [address] [facility]([phone]) [phone] [place] [address] NORBERT GARCIA Unavailable . + [place] [address] R Unavailable Unavailable Unavailable GARCIAJEY LEE Unavailable [address] [facility]([phone] [place] [address] NORBERT GARCIA Unavailable Unavailable + [place] [address] R Unavailable Unavailable Unavailable Norbert Garcia Unavailable . + [place] [address] GARCIA JEY Unavailable [address] + [place] [address] R Unavailable Unavailable Unavailable JOSE JEY Unavailable [address] [facility]([phone] [place] [address] JOSE NORBERT Unavailable Unavailable + [place] [address] R Unavailable Unavailable Unavailable Garcia, Norbert Unavailable . + [place] [address] JOSE JEY Unavailable [address] [facility] + [place] [address] R Unavailable Unavailable Unavailable Garcia, Norbert Unavailable . + [place] [address] JOSE, JEY Unavailable [address] [facility]([phone] [place] [address] R Unavailable Unavailable Unavailable Garcia, Norbert Unavailable . + [place] [address] JOSE JEY Unavailable [address] [facility]([phone] [place] [address] R Unavailable Unavailable Unavailable Garcia, Norbert Unavailable . + [place] [address] JOSE JEY Unavailable [address] [facility] + [place] [address] R Unavailable Unavailable Unavailable Jose Norbert Unavailable . + [place] [address] JOSE JEY Unavailable [address] [facility]([phone] [place] [address] R Unavailable Unavailable Unavailable oJse Norbert Unavailable . + [place] [address] JOSE JEY Unavailable [address] [facility]([phone]) [phone] [place] [address] R Unavailable Unavailable Unavailable Jose Norbert Unavailable . + [place] [address] JOSE, JEY Unavailable [address] [facility]([phone] [place] [address] R Unavailable Unavailable Unavailable Jose Norbert Unavailable . + [place] [address] JOSE JEY Unavailable [address] [facility]([phone] [place] [address] R Unavailable Unavailable Unavailable Garcia Norbert Unavailable . + [place] [address] JOSE JEY Unavailable [address] [facility] + [place] [address] R Unavailable Unavailable Unavailable Garcia, Norbert Unavailable . + [place] [address] JOSE JEY Unavailable [address] [place] [address] + [place] [address] R Unavailable Unavailable Unavailable Garcia, Norbert Unavailable . + [place] [address] JOSE, JEY Unavailable [address] [place] [address] + [place] [address] R Unavailable Unavailable Unavailable Garcia, Norbert Unavailable . + [place] [address] JOSE, JEY Unavailable [address] [place] [address] + [place] [address] R Unavailable Unavailable Unavailable Garcia, Norbert Unavailable . + [place] [address] JOSE JEY Unavailable [address] [place] [address] [place] [address] R Unavailable Unavailable Unavailable Garcia, Norbert Unavailable . + [place] [address] JOSE JEY Unavailable [address] [place] [address] [place] [address] R Unavailable Unavailable Unavailable Garcia, Norbert Unavailable . + [place] [address] JEY GARCIA Unavailable [address] [place] [address] [place] [address] R Unavailable Unavailable Unavailable Garcia, Norbert Unavailable . + [place] [address] JOSE JEY Unavailable [address] [place] [address] + [place] [address] R Unavailable Unavailable Unavailable Garcia, Norbert Unavailable . + [place] [address] JOSE, JEY Unavailable [address] [place] [address] + [place] [address] R Unavailable Unavailable Unavailable Garcia, Norbert Unavailable . + [place] [address] JOSE, JEY Unavailable [address] [place] [address] + [place] [address] R Unavailable Unavailable Unavailable Garcia, Norbert Unavailable . + [place] [address] JOSE JEY Unavailable [address] [facility] + [place] [address] R Unavailable Unavailable Unavailable Garcia, Norbert Unavailable . + [place] [address] GARCIA, JEY Unavailable [address] [facility]([phone] [place] [address] R Unavailable Unavailable Unavailable Garcia, Norbert Unavailable . + [place] [address] GARCIA, JEY Unavailable [address] [facility] + [place] [address] R Unavailable Unavailable Unavailable GARCIA, JEY Unavailable [address] [facility]([phone] [place] [address] GARCIA, NORBERT Unavailable Unavailable + [place] [address] R Unavailable Unavailable Unavailable Garcia, Norbert Unavailable . + [place] [address] GARCIA, JEY Unavailable [address] [facility] + [place] [address] R Unavailable Unavailable Unavailable GARCIA, JEY Unavailable [address] [facility]([phone] [place] [address] GARCIA, NORBERT Unavailable Unavailable + [place] [address] R Unavailable Unavailable Unavailable Garcia, Norbert Unavailable . + [place] [address] GARICA, JEY Unavailable [address] [facility]([phone] [place] [address] R Unavailable Unavailable Unavailable Garcia, Norbert Unavailable . + [place] [address] GARCIA, JEY Unavailable [address] [facility]([phone]) [phone] [place] [address] R Unavailable Unavailable Unavailable Garcia, Norbert Unavailable . + [place] [address] GARCIA, JEY Unavailable [address] [facility]([phone] [place] [address] R Unavailable Unavailable Unavailable Garcia, Norbert Unavailable . + [place] [address] GARCIA, JEY Unavailable [address] [facility]([phone] [place] [address] R Unavailable Unavailable Unavailable Garcia, Norbert Unavailable . + [place] [address] JOSE JEY Unavailable [address] [facility]([phone] [place] [address] R Unavailable Unavailable Unavailable Garcia, Norbert Unavailable . + [place] [address] JOSE JEY Unavailable [address] [facility]([phone] [place] [address] R Unavailable Unavailable Unavailable Garcia, Norbert Unavailable . + [place] [address] JOSE JEY Unavailable [address] [facility]([phone]) [phone] [place] [address] R Unavailable Unavailable Unavailable Garcia, Norbert Unavailable . + [place] [address] JOSE JEY Unavailable [address] [facility]([phone] [place] [address] R Unavailable Unavailable Unavailable Garcia, Norbert Unavailable . + [place] [address] JOSE JEY Unavailable [address] [facility]([phone] [place] [address] R Unavailable Unavailable Unavailable GARCIA, JEY Unavailable [address] [facility]([phone] [place] [address] GARCIA NORBERT Unavailable Unavailable + [place] [address] R Unavailable Unavailable Unavailable GARCIA, JEY Unavailable [address] [facility]([phone] [place] [address] GARCIA, NORBERT Unavailable Unavailable + [place] [address] R Unavailable Unavailable Unavailable Garcia, Norbert Unavailable . + [place] [address] GARCIA, JEY Unavailable [address] [facility]([phone] [place] [address] R Unavailable Unavailable Unavailable GARCIA, JEY Unavailable [address] [facility]([phone] [place] [address] GARCIA, NORBERT Unavailable Unavailable + [place] [address] R Unavailable Unavailable Unavailable GARCIA, JEY Unavailable [address] [place] [address] [place] [address] NORBERT GARCIA Unavailable Unavailable + [place] [address] R Unavailable Unavailable Unavailable Norbert Garcia Unavailable . + [place] [address] JEY GARCIA Unavailable [address] [facility]([phone] [place] [address] R Unavailable Unavailable Unavailable Care Team Providers Name Role Phone Severiano Kumar Attending Unavailable Severiano Kumar Referring Unavailable [facility] Unavailable [facility] Unavailable Ashelfah, Ghasem Admitting Unavailable Rocael Valencia Consulting Unavailable Irene Wilson Attending Unavailable Ortiz Markham Consulting Unavailable Nidia Jones Consulting Unavailable Tanphaichiuriah, Natthavat Consulting Unavailable Anoop Angeles Consulting Unavailable Ashelfah, Ghasem Admitting Unavailable Ashelfah, Ghasem Attending Unavailable [facility] Unavailable Ashelfah, Ghasem Consulting Unavailable Ashelfah, Ghasem Admitting Unavailable Viviana Childers SALESPERSON [employer] Attending Unavailable [facility] Unavailable Rocael Valencia Consulting Unavailable Ortiz Markham Consulting Unavailable Ashelfah, Ghasem Consulting Unavailable Ashelfah, Ghasem Admitting Unavailable Rocael Valencia Attending Unavailable [facility] Unavailable Rocael Valencia Consulting Unavailable Ortiz Markham Consulting Unavailable Ashelfah, Ghasem Consulting Unavailable Ashelfah, Ghasem Admitting Unavailable Reinier Lang Attending Unavailable [facility] Unavailable Rocael Valencia Consulting Unavailable Ortiz Markham Consulting Unavailable Ashelfah, Ghasem Consulting Unavailable Ashelfah, Ghasem Admitting Unavailable Ashelfah, Ghasem Attending Unavailable [facility] Unavailable Rocael Valencia Consulting Unavailable Ortiz Markham Consulting Unavailable Ashelfah, Ghasem Consulting Unavailable Ashelfah, Ghasem Admitting Unavailable Viviana Childers SALESPERSON [employer] Attending Unavailable [facility] Unavailable Rocael Valencia Consulting Unavailable Ortiz Markham Consulting Unavailable Ashelfah, Ghasem Consulting Unavailable Ashelfah, Ghasem Admitting Unavailable Rocael Valencia Attending Unavailable [facility] Unavailable ErikRocael helton Consulting Unavailable Ortiz Markham Consulting Unavailable Ashelfah, Ghasem Consulting Unavailable Ashelfah, Ghasem Admitting Unavailable Reinier Lang Attending Unavailable [facility] Unavailable ErikRocael helton Consulting Unavailable Ortiz Markham Consulting Unavailable Ashelfah, Ghasem Consulting Unavailable Ashelfah, Ghasem Admitting Unavailable Ashelfah, Ghasem Attending Unavailable [facility] Unavailable ErikRocael helton Consulting Unavailable Ortiz Markham Consulting Unavailable Ashelfah, Ghasem Consulting Unavailable Ashelfah, Ghasem Admitting Unavailable Ortiz Markham Attending Unavailable [facility] Unavailable Erik, Rocael Consulting Unavailable Ortiz Markham Consulting Unavailable Ashelfah, Ghasem Consulting Unavailable Ashelfah, Ghasem Admitting Unavailable Ashelfah, Ghasem Attending Unavailable [facility] Unavailable Rocael Valencia Consulting Unavailable Ortiz Markham Consulting Unavailable Ashelfah, Ghasem Consulting Unavailable Ashelfah, Ghasem Admitting Unavailable Ortiz Markham Attending Unavailable [facility] Unavailable Rocael Valencia Consulting Unavailable Ortiz Markham Consulting Unavailable Bakhous, Aziz Consulting Unavailable Ashelfah, Ghasem Consulting Unavailable Ashelfah, Ghasem Admitting Unavailable Viviana Childers SALESPERSON STEREO EQUIPMENT-C Attending Unavailable [facility] Unavailable Rocael Valencia Consulting Unavailable Ortiz Markham Consulting Unavailable Bakneydas, Aziz Consulting Unavailable Jeevan Machado Consulting Unavailable Ashelfah, Ghasem Admitting Unavailable Jeevan Machado Attending Unavailable [facility] Unavailable Rocael Valencia Consulting Unavailable Ortiz Markham Consulting Unavailable Bakhous, Aziz Consulting Unavailable Tanphaichitr, Natthavat Consulting Unavailable Jeevan Machado Consulting Unavailable Ashelfah, Ghasem Admitting Unavailable Aydin Carroll D.O. Attending Unavailable [facility] Unavailable Rocael Valencia Consulting Unavailable Ortiz Markham Consulting Unavailable Bakhous, Aziz Consulting Unavailable Tanphaichitr, Natthavat Consulting Unavailable Jeevan Machado Consulting Unavailable Ashelfah, Ghasem Admitting Unavailable Viviana Childers SALESPERSON STEREO EQUIPMENT-C Attending Unavailable [facility] Unavailable Rocael Valencia Consulting Unavailable Ortiz Markham Consulting Unavailable Bakhous, Aziz Consulting Unavailable Tanphaichitr, Natthavat Consulting Unavailable Jeevan Machado Consulting Unavailable Ashelfah, Ghasem Admitting Unavailable Jeevan Machado Attending Unavailable [facility] Unavailable ErikRocael hel[place] Consulting Unavailable Ortiz Markham Consulting Unavailable Bakhous, Aziz Consulting Unavailable Tanphaichitr, Natthavat Consulting Unavailable Jeevan Machado Consulting Unavailable Ashelfah, Ghasem Admitting Unavailable Aydin Carroll D.O. Attending Unavailable [facility] Unavailable Rocael Valencia Consulting Unavailable Ortiz Markham Consulting Unavailable Bakhous, Aziz Consulting Unavailable Tanphaichitr, Natthavat Consulting Unavailable Jeevan Machado Consulting Unavailable Ashelfah, Ghasem Admitting Unavailable Viviana Childers SALESPERSON STEREO EQUIPMENT-C Attending Unavailable [facility] Unavailable Rocael Valencia Consulting Unavailable Ortiz Markham Consulting Unavailable Bakhous, Aziz Consulting Unavailable Tanphaichitr, Natthavat Consulting Unavailable Jeevan Machado Consulting Unavailable Ashelfah, Ghasem Admitting Unavailable Jeevan Machado Attending Unavailable [facility] Unavailable Rocael Valencia Consulting Unavailable Ortiz Markham Consulting Unavailable Bakhous, Aziz Consulting Unavailable Tanphaichitr, Natthavat Consulting Unavailable Jeevan Machado Consulting Unavailable Ashelfah, Ghasem Admitting Unavailable [facility] Unavailable Rocael Valencia Consulting Unavailable Aydin Carroll D.O. Attending Unavailable Ortiz Markham Consulting Unavailable Bakhous, Aziz Consulting Unavailable Tanphaichitr, Natthavat Consulting Unavailable Jeevan Machado Consulting Unavailable Ashelfah, Ghasem Admitting Unavailable Viviana Childers SALESPERSON STEREO EQUIPMENT-C Attending Unavailable [facility] Unavailable Rocael Valencia Consulting Unavailable Ortiz Markham Consulting Unavailable Bakhous, Aziz Consulting Unavailable Tanphaichitr, Natthavat Consulting Unavailable Jeevan Machado Consulting Unavailable Ashelfah, Ghasem Admitting Unavailable Aydin Carroll D.O. Attending Unavailable [facility] Unavailable Rocael Valencia Consulting Unavailable Ortiz Markham Consulting Unavailable Bakhous, Aziz Consulting Unavailable Tanphaichitr, Natthavat Consulting Unavailable Jeevan Machado Consulting Unavailable Ashelfah, Ghasem Admitting Unavailable Jeevan Machado Attending Unavailable [facility] Unavailable Rocael Valencia Consulting Unavailable Ortiz Markham Consulting Unavailable Bakhous, Aziz Consulting Unavailable Tanphaichitr, Natthavat Consulting Unavailable Jeevan Machado Consulting Unavailable Ashelfah, Ghasem Admitting Unavailable Viviana Childers Attending Unavailable [facility] Unavailable ErikRocael helton Consulting Unavailable Ortiz Markham Consulting Unavailable Bakhous, Aziz Consulting Unavailable Tanphaichitr, Natthavat Consulting Unavailable Jeevan Machado Consulting Unavailable Ashelfah, Ghasem Admitting Unavailable Aydin Carroll D.O. Attending Unavailable [facility] Unavailable ErikRocael helton Consulting Unavailable Ortiz Markham Consulting Unavailable Bakhous, Aziz Consulting Unavailable Tanphaichitr, Natthavat Consulting Unavailable Jeevan Machado Consulting Unavailable Ashelfah, Ghasem Admitting Unavailable Melvina Grimes.Jimi. Attending Unavailable [facility] Unavailable Rocael Valencia Consulting Unavailable Ortiz Markham Consulting Unavailable Bakhous, Aziz Consulting Unavailable Tanphaichitr, Natthavat Consulting Unavailable Jeevan Machado Consulting Unavailable Ashelfah, Ghasem Admitting Unavailable Jeevan Machado Attending Unavailable [facility] Unavailable Rocael Valencia Consulting Unavailable Ortiz Markham Consulting Unavailable Bakhous, Aziz Consulting Unavailable Tanphaichitr, Natthavat Consulting Unavailable Jeevan Machado Consulting Unavailable Ashelfah, Ghasem Admitting Unavailable Melvina Grimes.Jimi. Attending Unavailable [facility] Unavailable Rocael Valencia Consulting Unavailable Ortiz Markham Consulting Unavailable Bakhous, Aziz Consulting Unavailable Tanphaichitr, Natthavat Consulting Unavailable Jeevan Machado Consulting Unavailable Ashelfah, Ghasem Admitting Unavailable Jeevan Machado Attending Unavailable [facility] Unavailable Rocael Valencia Consulting Unavailable Ortiz Markham Consulting Unavailable Bakhous, Aziz Consulting Unavailable Tanphaichitr, Natthavat Consulting Unavailable Jeevan Machado Consulting Unavailable Ashelfah, Ghasem Admitting Unavailable Evangelina Hendricks PA-C Attending Unavailable [facility] Unavailable Rocael Valencia Consulting Unavailable Ortiz Markham Consulting Unavailable Bakhous, Aziz Consulting Unavailable Tanphaichitr, Natthavat Consulting Unavailable Cebul, Anoop Consulting Unavailable Gbaruk, Kombian Consulting Unavailable Ashelfah, Ghasem Admitting Unavailable Cebul, Anoop Attending Unavailable Duffy, Mat Primary Care Unavailable Rocael Valencia Consulting Unavailable Ortiz Markham Consulting Unavailable Bakhous, Aziz Consulting Unavailable Tanphaichitr, Natthavat Consulting Unavailable Cebul, Anoop Consulting Unavailable Gbaruk, Kombian Consulting Unavailable Ashelfah, Ghasem Admitting Unavailable Dfufy, Mat Primary Care Unavailable Rocael Valencia Consulting [...] Anoop Consulting Unavailable Gbaruk, Kombian Consulting Unavailable Duffy, Mat Primary Care Unavailable Irma Rockwell Attending [...] Ghasem Attending Unavailable Rocael Valencia Consulting Unavailable Keilybul, Anoop Consulting Unavailable Darien Mcclendon Attending Unavailable Jeevan Machado Referring Unavailable Gbaruk, Kombian Admitting Unavailable Duffy, Mat Primary Care Unavailable Rocael Valencia Consulting Unavailable Gwyn Agudelo Attending Unavailable Alice, Jayaprakash Consulting Unavailable Gbaruk, Kombian Consulting Unavailable [place]baruk, Kombian Admitting Unavailable Ashelfah, Ghasem Attending Unavailable [facility] Unavailable Alice, Jayaprakash Consulting Unavailable Erik, Rocael Consulting Unavailable Ashelfah, Ghasem Consulting Unavailable Gbaruk, Kombian Admitting Unavailable Viviana Childers SALESPERSON STEREO EQUIPMENT-C Attending Unavailable [facility] Unavailable Alice, Jayaprakash Consulting Unavailable Erik, Rocael Consulting Unavailable Ashelfah, Ghasem Consulting Unavailable Gbaruk, Kombian Admitting Unavailable Erik Rocael Attending Unavailable [facility] Unavailable Alice, Jayaprakash Consulting Unavailable Erik, Rocael Consulting Unavailable Ashelfah, Ghasem Consulting Unavailable Gbaruk, Kombian Admitting Unavailable Ashelfah, Ghasem Attending Unavailable [facility] Unavailable Alice, Jayaprakash Consulting Unavailable Erik, Rocael Consulting Unavailable Ashelfah, Ghasem Consulting Unavailable Gbaruk, Kombian Admitting Unavailable Ashelfah, Ghasem Attending Unavailable [facility] Unavailable Alice, Jayaprakash Consulting Unavailable Erik, Rocael Consulting Unavailable Cebul, Anoop Consulting Unavailable Ashelfah, Ghasem Consulting Unavailable Gbaruk, Kombian Admitting Unavailable Viviana Childers SALESPERSON STEREO EQUIPMENT-C Attending Unavailable [facility] Unavailable Alice, Jayaprakash Consulting Unavailable Erik, Rocael Consulting Unavailable Cebul, Anoop Consulting Unavailable Ashelfah, Ghasem Consulting Unavailable Gbaruk, Kombian Admitting Unavailable Erik Rocael Attending Unavailable [facility] Unavailable Alice, Jayaprakash Consulting Unavailable Erik, Rocael Consulting Unavailable Cebul, Anoop Consulting Unavailable Ashelfah, Ghasem Consulting Unavailable Gbaruk, Kombian Admitting Unavailable Cebul, Anoop Attending Unavailable [facility] Unavailable Alice, Jayaprakash Consulting Unavailable Erik, Rocael Consulting Unavailable Cebul, Anoop Consulting Unavailable Ashelfah, Ghasem Consulting Unavailable Gbaruk, Kombian Admitting Unavailable Ashelfah, Ghasem Attending Unavailable [facility] Unavailable Alice, Jayaprakash Consulting Unavailable Erik, Rocael Consulting Unavailable Cebul, Anoop Consulting Unavailable Ashelfah, Ghasem Consulting Unavailable Alice, Jayaprakash Attending Unavailable Alice, Jayaprakash Referring Unavailable Jolliff, Zeenat Primary Care Unavailable Norbert Bond Consulting Unavailable Alice, Jayaprakash Attending Unavailable Alice, Jayaprakash Referring Unavailable Jolliff, Zeenat Primary Care Unavailable Norbert Bond Attending Unavailable Mat Duffy Referring Unavailable BondNorbert alberts Attending Unavailable Jolliff, Zeenat Primary Care Unavailable Norbert Bond Attending Unavailable Norbert Bond Referring Unavailable Jolliff, Zeenat Primary Care Unavailable Norbert Bond Attending Unavailable Norbert Bond Referring Unavailable Jolliff, Zeenat Primary Care Unavailable Norbert Bond Attending Unavailable Mat Duffy Referring Unavailable Josi Hickman Attending Unavailable Josi Hickman Referring Unavailable Duffy, Mat Primary Care Unavailable Rocael Valencia Consulting Unavailable Anoop Angeles Attending Unavailable Anoop Angeles Referring Unavailable Duffy, Mat Primary Care Unavailable Duffy, Mat Primary Care Unavailable Koram, Jen Penny Admitting Unavailable Alice, Jayaprakash Consulting Unavailable Mata Engle Attending Unavailable Melvina Grimes.O. Consulting Unavailable Koram, Jen Penny Admitting Unavailable Mata Engle Attending Unavailable Duffy, Mat Primary Care Unavailable Alice, Jayaprakash Consulting Unavailable Aydin Carroll D.O. Consulting Unavailable Kadie Mata Consulting Unavailable Koram, Jen Penny Admitting Unavailable Mata Engle Attending Unavailable Duffy, Mat Primary Care Unavailable Alice, Jayaprakash Consulting Unavailable Aydin Carroll D.O. Consulting Unavailable Kadie Mata Consulting Unavailable Reinier Lang Attending Unavailable Ashelfah, Ghasem Referring Unavailable Anoop Angeles Attending Unavailable Mat Duffy Referring Unavailable Duffy, Mat Primary Care Unavailable Anoop Angeles Attending Unavailable Ashelfah, Ghasem Attending Unavailable Anoop [place] Attending Unavailable Torstenl Anoop Referring Unavailable Duffy, Mat Primary Care Unavailable Rocael Valencia Attending Unavailable Connie, Jen Penny Referring Unavailable Darien Mcclendon Attending Unavailable Mat Duffy Referring Unavailable Keilybul, Anoop Attending Unavailable Anoop Angeles Referring Unavailable Duffy, [...] Duffy, Mat Primary Care Unavailable Adriana Jovel SALESPERSON STEREO EQUIPMENT-C Attending Unavailable Duffy, Mat Primary Care Unavailable Adriana Jovel SALESPERSON STEREO EQUIPMENT-C Attending Unavailable Clive, Mat Primary Care Unavailable Alice, Jayaprakash Attending Unavailable Alice, Jayaprakash Referring Unavailable Mat Duffy Primary Care Unavailable Alice, Jayaprakash Attending Unavailable Alice, Jayaprakash Referring Unavailable Zeenat Harp Primary Care Unavailable Rocael Valencia Attending Unavailable Mat Duffy Referring Unavailable Norbert Bond Attending Unavailable Mat Duffy Referring Unavailable Anoop Angeles Attending Unavailable Zeenat Harp Referring Unavailable THORBEREKET LANG (SALESPERSON STEREO EQUIPMENT) Attending Unavailable THORBEREKET LANG (SALESPERSON STEREO EQUIPMENT) Referring Unavailable MARNIE NIELSON Attending Unavailable RENY BANDA (COMPENSATION ADMINISTRATOR) Attending Unavailable CLIVE, YAQUELIN Attending Unavailable CLIVE, YAQUELIN Attending Unavailable CLIVE, YAQUELIN Referring Unavailable BIANCA LOBO Admitting Unavailable VANI HODGE Attending Unavailable SARTHAK MENDOZA Consulting Unavailable Mat Duffy MD Primary Care Unavailable BIANCA LOBO Admitting Unavailable ALICE, JAYAPRAKASH R Consulting Unavailable VANI HODGE Attending Unavailable SARTHAK MENDOZA Consulting Unavailable PROBLEMS PROBLEMS DATE TYPE CONDITION / CODE ATTENDING STATUS SOURCE Unknown I50.33 - Acute on Bond, Active [place] 9 chronic diastolic [facility] (congestive) heart Hospital failure / Repository I50.33(ICD-10) Unknown N18.5 - Chronic kidney Bond, Active [place] 9 disease, stage 5 / [facility] N18.5(ICD-10) Hospital Repository Unknown I48.0 - Paroxysmal Bond, Active [place] 9 atrial fibrillation / [facility] I48.0(ICD-10) Hospital Repository Unknown N18.3 - Chronic kidney Alice, Active [place] 8 disease, stage 3 [facility] (moderate) / Hospital N18.3(ICD-10) Repository Unknown N18.4 - Chronic kidney Alice, Active [place] 8 disease, stage 4 [facility] (severe) / Hospital N18.4(ICD-10) Repository Unknown E55.9 - Vitamin D Alice, Active [place] 8 deficiency, Jayaprakash Community unspecified / Hospital E55.9(ICD-10) Repository Unknown T82.898A - Other Anoop Angeles Active [place] 8 specified complication Community of vascular prosthetic [...] Unknown J44.9 - Chronic Aydin Glen Active [place] 8 obstructive pulmonary D.O. Community disease, unspecified / Hospital J44.9(ICD-10) Repository Unknown G89.18 - Other acute Anoop [place] Active [place] 8 postprocedural pain / Community G89.18(ICD-10) Hospital Repository Unknown R94.31 - Abnormal Danelle, [place] Active [place] 8 electrocardiogram Community [ECG] [EKG] / Hospital R94.31(ICD-10) Repository Unknown R06.02 - Shortness of RosaliaisjameyReinier Active [place] 8 breath / Community R06.02(ICD-10) Hospital Repository Unknown R00.1 - Bradycardia, Reinier Lang Active [place] 8 unspecified / Community R00.1(ICD-10) Hospital Repository Active Acute kidney [facility], [facility] [place] [facility] unspecified / [facility] Other N17.9(ICD-10) [place] Repository Active Heart failure, [facility] Active [place] [facility] unspecified / [facility] Other I50.9(ICD-10) [place] Repository Active Obesity, unspecified / [facility], [facility] Active [place] 8 E66.9(ICD-10) [facility] Other [place] Repository Active Body mass index (bmi) [facility] Active [place] 8 36.0-36.9, adult / [facility] Other Z68.36(ICD-10) [place] Repository Active Obstructive sleep RAZACK, [place] [address] apnea (adult) [facility] Clinic Other (pediatric) / [place] G47.33(ICD-10) Repository Active Pleural effusion, not RAZACK, [facility] Active [place] 8 elsewhere classified / [facility] Other J90(ICD-10) [place] Repository Active Acute and chronic RAZACK, [place] [address] respiratory failure [facility] Clinic Other with hypoxia / [place] J96.21(ICD-10) Repository Active [facility] Active [place] [address] diastolic (congestive) [facility] Clinic Other heart failure / [place] I50.33(ICD-10) Repository Active Secondary pulmonary RAZACK, [place] [address] arterial hypertension [facility] Clinic Other / I27.21(ICD-10) [place] Repository Active [facility]teritis, [facility], [place] [address] / I77.6(ICD-10) [facility] Clinic Other [place] Repository Active Acute systolic RAZACK, [place] [address] (congestive) heart [facility] Clinic Other failure / [place] I50.21(ICD-10) Repository Admitting Unknown / UNK(Unknown) [facility] Active [place] [address] diagnosis Health System Repository Active Unknown / UNK(Unknown) BEREKET HAMMER [place] [address] (SALESPERSON STEREO EQUIPMENT) Clinic Main [place] Repository PROCEDURES PROCEDURES No Procedure Records FoundRESULTS RESULTS CARDIOLOGY VISIT Observed: 10/28/2018 Status: F Source: [place] REPORT 4:01 PM [facility] HOSPITAL REPOSITORY [facility] [address] [place] [address] OFFICE VISIT Date of Service: 10/28/18 MR#: [id number] Acct: [id number] Name: MICHAEL GARCIA Rep #: [id number] : 1945 Provider: Norbert Bond Age/Sex: 72/F Location: [facility] Status: Signed HPI HPI Details: MICHAEL GARCIA, is a 72 F who presents to the office today for a follow up for concerns over increase in weight and SOB. She did have 3 days of IV lasix and was to see the account assistant. She has a history of diastolic heart [...] F Source: CHRISTOPHER PROFILE (BMP) 12:06 PM [facility] REPOSITORY TYPE CODE TESTS RESULT OUT OF [...] GAP 6 Performed By: #### L500.2500 #### [facility] [address] [place], [address] CARDIOLOGY VISIT Observed: 10/22/2018 Status: F Source: [place] REPORT 5:38 PM [facility] REPOSITORY [facility] [place] [facility] [address] [place] [address] OFFICE VISIT Date of Service: 10/21/18 MR#: [id number] Acct: [id number] Name: MICHAEL GARCIA Rep #: [id number] : 1945 Provider: Norbert Bond Age/Sex: 72/F Location: [facility] Status: Signed HPI HPI Chief Complaint: [...] brachial Intake Visit Reasons: 6 wk FU Pai Gow Manager Required: No Accompanied by: Is patient in [...] meq PO DAILY 10/21/18 [History Confirmed 10/21/18] [facility] Medical History Chronic renal insufficiency, stage V [...] <Electronically signed by Norbert SHAFFER> Date Norbert HSAFFER 10/22/18 1738<Electronically signed by Darien Mcclendon MD> Cosigner Signature: Date (if applicable) Darien Mcclendon MD CC: Mat Duffy MD 12 LEAD EKG PERFORMED Observed: 10/21/2018 Status: F Source: CHRISTOPHER BY [facility] 2:37 PM [facility] REPOSITORY [address] [address] 12 Lead EKG performed by [facility] 10/21/18 1437 MR#: [id number] Acct: [id number] Name: MICHAEL GARCIA Rep #: [id number] : 1945 72 From: Norbert SHAFFER Attending Dr: Norbert Bond Status: DEP AMB Ordering Dr: Norbert Bond Date: 10/21/18 Location: [facility] Sex: F C Admitted: BMS/12 Lead EKG performed by [facility] ECG Report Interpretation Sinus Bradycardia -Left axis -anterior fascicular block. -Old anterior infarct. Low voltage with rightward P-axis and rotation -possible pulmonary disease. ABNORMAL Electronically signed on 10/27/2018 at 13:29 by Darien Mcclendon Software Version [id number] 10/27/18 1334 Date Norbert SHAFFER CC: Mat Duffy MD Date Dictated: 10/21/181436 Date Transcribed: 10/21/181436 Physician [facility]: [place] Signed KIDNEY AND BLADDER Observed: 10/01/2018 Status: F Source: CHRISTOPHER 12:08 PM [facility] REPOSITORY [facility] [address] [place] [address] Kidney and Bladder MR#: [id number] Acct: [id number] Name: MICHAEL GARCIA Rep #: [id number] : 1945 F 72 From: Luisa Mcnulty MD PCP: Zeenat Harp MD Status: REG CLI Study: Kidney and Bladder Date of Exam: 10/01/18 Exam# [id number] Ordering Dr: Trell Jenkins MD STUDY: RENAL [...] CC: Zeenat Harp MD; Domingo Jenkins M.D. Physician [facility]: Signed CBC-COMPLETE BLOOD CNT Collected: 09/18/2018 Status: F Source: [place]UM[place] NO DIFF 1:30 PM [facility] REPOSITORY Order Comment: GABBY WANTS THE BMP [...] MPV 9.4 Performed By: #### L100.0500 #### [facility] [place], [address] PROTEIN+CREATININE Collected: Status: F Source: CHRISTOPHER RATIO,URINE 09/18/2018 1:30 PM [facility] REPOSITORY Order Comment: GABBY WANTS THE BMP ALICE WANTS THE PROCRE PTH VITD CBC BMP ALB TYPE CODE TESTS RESULT OUT OF RANGE REFERENCE UNITS LAB L501.1200 NO RANGE EST. mg/dL Normal UR CREAT 58.00 LAB L501.1930 <11.9 mg/dL High 88.0 PROTEIN,UR.R AN. LAB L501.1940 0-200 mg/g CRE High PROT:CRE 1517 RATIO Performed By: #### L501.0900 #### [facility] [address] [place], [place], [address] PTHIN Collected: 09/18/2018 Status: F Source: CHRISTOPHER 1:30 PM [facility] REPOSITORY Order Comment: GABBY WANTS THE BMP ALICE WANTS THE PROCRE PTH VITD CBC BMP ALB TYPE CODE TESTS RESULT OUT OF RANGE REFERENCE UNITS LAB L509.1000 18.4-80.1 pg/mL High PTHIN 102.8 Performed By: #### L509.1000 #### [facility] [address] [place], [place], [address] VITAMIN D,25 HYDROXY Collected: 09/18/2018 Status: F Source: CHRISTOPHER 1:29 PM [facility] REPOSITORY Order Comment: GABBY WANTS THE BMP [...] (>250 nmol/L) Performed By: #### L506.1000 #### [facility] [address] [place], [address] BASIC METABOLIC Collected: 09/18/2018 Status: F Source: CHRISTOPHER PROFILE (BMP) 1:27 PM [facility] REPOSITORY Order Comment: GABBY WANTS THE BMP [...] 5 Performed By: #### L500.2500, L501.1800 #### [facility] [address] [place], [place], [address] ALBUMIN, SERUM Collected: 09/18/2018 Status: F Source: CHRISTOPHER 1:27 PM [facility] REPOSITORY Order Comment: GABBY WANTS THE BMP ALICE WANTS THE PROCRE PTH VITD CBC BMP ALB TYPE CODE TESTS RESULT OUT OF RANGE REFERENCE UNITS LAB L501.1800 3.2-5.0 g/dL Normal ALB 3.4 Performed By: #### L500.2500, L501.1800 #### [facility] [address] [place], [place], [address] CARDIOLOGY VISIT Observed: 09/14/2018 Status: F Source: RUMNEY REPORT 7:29 AM [facility] REPOSITORY [facility] [address] [place] [address] OFFICE VISIT Date of Service: 09/09/18 MR#: [id number] Acct: [id number] Name: MICHAEL GARCIA Rep #: [id number] : 1945 Provider: Norbert Bond Age/Sex: 72/F Location: [facility] Status: Signed HPI HPI Chief Complaint: [...] brachial Intake Visit Reasons: 4 M FU Pai Gow Manager Required: No Is patient in pain?: No [...] us next week after she sees a account assistant with an update on nephrology's input in [...] VISIT REPORT Observed: 09/09/2018 Status: F Source: RUMNEY 3:09 PM [facility] REPOSITORY [facility] [address] [place] [address] OFFICE VISIT Date of Service: 09/09/18 MR#: [id number] Acct: [id number] Name: MICHAEL GARCIA Rep #: [id number] : 1945 Provider: Anoop Angeles MD Age/Sex: 72/F Location: [facility] Status: Signed Intake Vital Signs09/09/18 Body Mass Index (BMI) 36.6 Intake Visit Reasons: Fistula Check - Per patient's is due Chief Complaint: recheck fistula Pai Gow Manager Required: No Is patient in pain?: No [...] She does have multiple medical comorbidities. Her account assistant is Exam Extrem Other: Left forearm: Well-healed [...] F Source: [place] BY ASIA 1:35 PM [facility] REPOSITORY [facility] [address] [place] [address] 12 Lead EKG performed by ASIA 09/09/18 1334 MR#: [id number] Acct: [id number] Name: MICHAEL GARCIA Rep #: [id number] : 1945 72 From: Norbert SHAFFER Attending Dr: Norbert Bond Status: DEP AMB Ordering Dr: Norbert Bond Date: 09/09/18 Location: [facility] Sex: F C Admitted: BMS/12 Lead EKG performed by [facility] ECG Report Interpretation Sinus Rhythm -Right sided [...] Date Dictated: 09/09/18 1334 Date Transcribed: 09/09/181333 Physician Locums Urgent Care: [place] Signed PULMONARY VISIT REPORT Observed: 09/09/2018 Status: F Source: RUMNEY 11:03 AM [facility] Pulmonary Medicine of [address] [place] [address] OFFICE VISIT Date of Service: 09/09/18 MR#: [id number] Acct: [id number] Name: MICHAEL GARCIA Rep #: [id number] : 1945 Provider: Rocael Valencia MD Age/Sex: 72/F Location: [facility].PMW Status: Signed Assessment AND Plan Problems 1. [...] Cantu Plan Detail Follow Up 3 Months ([facility]) HPI 3 M FU: Chief [...] 03/01/18 [History Confirmed 09/09/18] Hydrocodone Bitart/Apap 5-325 [Poway 5MG-325MG] 1 tab PO Q6H PRN PRN [...] BLOOD CNT Collected: 08/10/2018 Status: F Source: RUM[place] NO DIFF 10:09 AM [facility] REPOSITORY TYPE CODE TESTS RESULT OUT OF [...] MPV 9.4 Performed By: #### L100.0500 #### [facility] [address] [place], [address] PROTEIN+CREATININE Collected: Status: F Source: [place] RATIO,URINE 08/10/2018 10:09 AM [facility] REPOSITORY TYPE CODE TESTS RESULT OUT OF RANGE REFERENCE UNITS LAB L501.1200 NO RANGE EST. mg/dL Normal UR CREAT 79.60 LAB L501.1930 <11.9 mg/dL High 60.0 PROTEIN,UR.R AN. LAB L501.1940 0-200 mg/g CRE High PROT:CRE 754 RATIO Performed By: #### L501.0900 #### [facility] [address] [place], [place], [address] RENAL PROFILE Collected: 08/10/2018 Status: F Source: [place] 10:09 AM [facility] REPOSITORY TYPE CODE TESTS RESULT OUT OF [...] CO2 30.0 Performed By: #### L500.3600 #### [facility] [address] [place], [place], [address] PTHIN Collected: 08/10/2018 Status: F Source: [place] 10:09 AM [facility] REPOSITORY TYPE CODE TESTS RESULT OUT OF RANGE REFERENCE UNITS LAB L509.1000 18.4-80.1 pg/mL High PTHIN 169.7 Performed By: #### L509.1000 #### [facility] [address] [place], [place], [address] VITAMIN D,25 HYDROXY Collected: 08/10/2018 Status: F Source: [place] 10:09 AM [facility] REPOSITORY TYPE CODE TESTS RESULT OUT OF RANGE REFERENCE UNITS LAB L506.1000 29.95-100.01 ng/mL Normal Vitamin D 37.3 25-OH Result Comment: Vitamin D 25(OH) Status Range Deficiency <20 ng/mL (50nmol/L) Insuffciency 20 - 30 ng/mL (50 - 75 nmol/L) Sufficiency 30 - 100 ng/mL (75 - 250 nmol/L) Toxicity >100 ng/mL (>250 nmol/L) Performed By: #### L506.1000 #### [facility] [address] [place], [address] HEMOGLOBIN A1C Collected: 06/24/2018 Status: F Source: [place] 11:43 AM [facility] REPOSITORY Order Comment: PLEASE SEND RESULTS TO DR. JENKINS AND DR HOUSE BOTH PER PT REQUEST. TYPE CODE TESTS RESULT OUT OF RANGE REFERENCE UNITS LAB L501.9985 4.2-6.3 % High HGB A1C 7.9 Performed By: #### L501.9985 #### [facility] [address] [place], [address] CBC-COMPLETE BLOOD CNT Collected: 06/24/2018 Status: F Source: [place] NO DIFF 11:26 AM [facility] REPOSITORY TYPE CODE TESTS RESULT OUT OF [...] MPV 9.9 Performed By: #### L100.0500 #### [facility] [address] [place], [address] PROTEIN+CREATININE Collected: Status: F Source: [place] RATIO,URINE 06/24/2018 11:26 AM [facility] REPOSITORY Order Comment: PLEASE SEND RESULTS TO DR. JENKINS AND DR HOUSE BOTH PER PT REQUEST. TYPE CODE TESTS RESULT OUT OF RANGE REFERENCE UNITS LAB L501.1200 NO RANGE EST. mg/dL Normal UR CREAT 110.00 LAB L501.1930 <11.9 mg/dL High 34.1 PROTEIN,UR.R AN. LAB L501.1940 0-200 mg/g CRE High PROT:CRE 310 RATIO Performed By: #### L501.0900 #### [facility] [address] [place], [address] PTHIN Collected: 06/24/2018 Status: F Source: [place] 11:26 AM [facility] REPOSITORY Order Comment: PLEASE SEND RESULTS TO DR. JENKINS AND DR HOUSE BOTH PER PT REQUEST. TYPE CODE TESTS RESULT OUT OF RANGE REFERENCE UNITS LAB L509.1000 18.4-80.1 pg/mL High PTHIN 219.2 Performed By: #### L509.1000 #### [facility] [address] [place], [address] VITAMIN D,25 HYDROXY Collected: 06/24/2018 Status: F Source: [place] 11:26 AM [facility] REPOSITORY Order Comment: PLEASE SEND RESULTS TO [...] (>250 nmol/L) Performed By: #### L506.1000 #### [facility] [address] [place], [address] PROTEIN, TOTAL Collected: 06/24/2018 Status: F Source: RUM[place] 11:26 AM [facility] REPOSITORY Order Comment: PLEASE SEND RESULTS TO DR. JENKINS AND DR HOUSE BOTH PER PT REQUEST. TYPE CODE TESTS RESULT OUT OF RANGE REFERENCE UNITS LAB L501.1500 6.4-8.2 g/dL Normal T PROT 8.0 LAB L501.1950 2.2-4.2 g/dL High GLOB 4.7 LAB L501.2000 0.9-2.4 RATIO Low A/G 0.7 Performed By: #### L001.0705, L500.3600, L500.4100, L501.4100, L501.4305, L501.4405, L501.4600, L501.4700 #### [facility] [address] [place], [address] RENAL PROFILE Collected: 06/24/2018 Status: F Source: RUMNEY 11:26 AM [facility] REPOSITORY Order Comment: PLEASE SEND RESULTS TO [...] L500.4100, L501.4100, L501.4305, L501.4405, L501.4600, L501.4700 #### [facility] [address] [place], [address] LIPID PROFILE Collected: 06/24/2018 Status: F Source: [place] 11:26 AM [facility] REPOSITORY Order Comment: PLEASE SEND RESULTS TO [...] L500.4100, L501.4100, L501.4305, L501.4405, L501.4600, L501.4700 #### [facility] [address] [place], [place], [id number] (255) AST(SGOT) Collected: 06/24/2018 Status: F Source: [place] 11:26 AM [facility] REPOSITORY Order Comment: PLEASE SEND RESULTS TO DR. JENKINS AND DR HOUSE BOTH PER PT REQUEST. TYPE CODE TESTS RESULT OUT OF RANGE REFERENCE UNITS LAB L501.4100 15-37 U/L Low AST 7 Performed By: #### L001.0705, L500.3600, L500.4100, L501.4100, L501.4305, L501.4405, L501.4600, L501.4700 #### [facility] [address] [place], [place], [address] ALKALINE PHOSPHATASE Collected: 06/24/2018 Status: F Source: [place] 11:26 AM [facility] REPOSITORY Order Comment: PLEASE SEND RESULTS TO DR. JENKINS AND DR HOUSE BOTH PER PT REQUEST. TYPE CODE TESTS RESULT OUT OF RANGE REFERENCE UNITS LAB L501.4305 45-117 U/L Normal ALK P 111 Performed By: #### L001.0705, L500.3600, L500.4100, L501.4100, L501.4305, L501.4405, L501.4600, L501.4700 #### [facility] [address] [place], [place], [address] ALANINE AMINOTRANSFERAS Collected: 06/24/2018 Status: F Source: RUMNEY (SGPT) 11:26 AM [facility] REPOSITORY Order Comment: PLEASE SEND RESULTS TO DR. JENKINS AND DR HOUSE BOTH PER PT REQUEST. TYPE CODE TESTS RESULT OUT OF RANGE REFERENCE UNITS LAB L501.4405 13-56 U/L Normal ALT 15 Performed By: #### L001.0705, L500.3600, L500.4100, L501.4100, L501.4305, L501.4405, L501.4600, L501.4700 #### [facility] [address] [place], [place], [address] TOTAL BILIRUBIN Collected: 06/24/2018 Status: F Source: [place] 11:26 AM [facility] REPOSITORY Order Comment: PLEASE SEND RESULTS TO DR. JENKINS AND DR HOUSE BOTH PER PT REQUEST. TYPE CODE TESTS RESULT OUT OF RANGE REFERENCE UNITS LAB L501.4600 0.20-1.00 mg/dL Normal T BILI 0.50 Performed By: #### L001.0705, L500.3600, L500.4100, L501.4100, L501.4305, L501.4405, L501.4600, L501.4700 #### [facility] [address] [place], [place], [address] BILIRUBIN, DIRECT Collected: 06/24/2018 Status: F Source: [place] 11:26 AM [facility] REPOSITORY Order Comment: PLEASE SEND RESULTS TO DR. JENKINS AND DR HOUSE BOTH PER PT REQUEST. TYPE CODE TESTS RESULT OUT OF RANGE REFERENCE UNITS LAB L501.4700 0.00-0.30 mg/dL Normal D BILI 0.19 Performed By: #### L001.0705, L500.3600, L500.4100, L501.4100, L501.4305, L501.4405, L501.4600, L501.4700 #### [facility] [address] [place], [place], [address] RENAL PROFILE Collected: 06/09/2018 Status: F Source: [place] 7:41 AM [facility] REPOSITORY TYPE CODE TESTS RESULT OUT OF [...] CO2 28.0 Performed By: #### L500.3600 #### [facility] [address] [facility] [place], [place], [address] SURGERY VISIT REPORT Observed: 06/04/2018 Status: F Source: RUMNEY 8:03 AM [facility] REPOSITORY [facility] [address] [place] [address] OFFICE VISIT Date of Service: 06/04/18 MR#: [id number] Acct: [id number] Name: MICHAEL GARCIA Rep #: [id number] : 1945 Provider: Anoop Angeles MD Age/Sex: 72/F Location: [facility] Status: Signed Intake Intake Visit Reasons: Cath [...] 03/01/18 [History Confirmed 04/28/18] Hydrocodone Bitart/Apap 5-325 [Poway 5MG-325MG] 1 tab PO Q6H PRN PRN [...] were provided. Anoop Angeles M.D., F.A.C.S. Port/Peg [id number] Dialysis Cath Remov Assessment AND Plan Problems 1. Problem with dialysis access, initial encounter T82.576J Plan Successfully removed right internal jugular dialysis catheter. Very nicely functioning transposed left forearm cephalic vein to radial artery arteriovenous fistula. Not currently on hemodialysis. The patient will return to my office in 3 months time for routine surgical follow-up regarding her left forearm AV fistula. Anoop Angeles M.D., F.A.C.S. Orders Orders: Coding Level of Care Code Attention Ct Scan Technologist Diagnoses Problem with dialysis access, initial encounter T82.624Y Encounter type: initial encounter Additional Codes Port/Peg - Port/Pe Dialysis Cath Remov (39669) 06/04/18 0803 <Electronically signed by Anoop Angeles MD> Date Anoop Cuellar Signature: Date (if applicable) CC: BASIC METABOLIC Collected: 06/01/2018 Status: F Source: CH[place]STOP[place] PROFILE (BMP) 9:37 AM [facility] REPOSITORY TYPE CODE TESTS RESULT OUT OF [...] 8 Performed By: #### L500.2500, L500.3600 #### [facility] [address] [place], [address] RENAL PROFILE Collected: 06/01/2018 Status: F Source: [place] 9:37 AM [facility] REPOSITORY TYPE CODE TESTS RESULT OUT OF [...] 3.0 Performed By: #### L500.2500, L500.3600 #### [facility] [address] [place], [place], [address] BASIC METABOLIC Collected: 05/25/2018 Status: F Source: [place] PROFILE ([facility]) 1:14 PM [facility] REPOSITORY TYPE CODE TESTS RESULT OUT OF [...] GAP 12 Performed By: #### L500.2500 #### [facility] [address] [place], [address] SURGERY VISIT REPORT Observed: 05/19/2018 Status: F Source: RUMNEY 1:18 PM [facility] REPOSITORY [facility] [address] [facility] [place] [address] OFFICE VISIT Date of Service: 05/19/18 MR#: [id number] Acct: [id number] Name: MICHAEL GARCIA Rep #: [id number] : 1945 Provider: Anoop Angeles MD Age/Sex: 72/F Location: [facility] Status: Signed Intake Intake Visit Reasons: Fistula Creation 04/02 Chief Complaint: post fistula placement Pai Gow Manager Required: No Is patient in pain?: No [...] 03/01/18 [History Confirmed 04/28/18] Hydrocodone Bitart/Apap 5-325 [Poway 5MG-325MG] 1 tab PO Q6H PRN PRN [...] 05/19/2018 Status: F Source: [place] 11:01 AM [facility] REPOSITORY [facility] Pulmonary Services/Neurology [facility] [place] [address] MR#: [id number] Acct: [id number] Name: MICHAEL GARCIA Rep #: [id number] : 1945 72 From: Aydin Carroll DO Referring Dr: Josi Hickman NP Date: Ordering Dr: Sex: F C Location: PSN PSN 6 Minute Walk Test - 6 Minute Walk Test 6 Minute Walk Test: 6 Minute Walk Test PSN:6-Minute Walk Test Start: 05/19/18 08:35 Freq: Status: Active Protocol: RESP.6MINW Document 05/19/18 08:35 NEHEMIAS (Rec: 05/19/18 08:41 SFMAXIMUSON [id number]) 6 Minute Walk Test Date Performed 05/19/18 [...] CC: Date Dictated: 05/19/181058 Date Transcribed: 05/19/181058 Physician Locums Urgent Care: Aydin Carroll DO Signed BASIC METABOLIC Collected: 05/19/2018 Status: F Source: [place] PROFILE (BMP) 7:46 AM [facility] REPOSITORY TYPE CODE TESTS RESULT OUT OF [...] GAP 10 Performed By: #### L500.2500 #### [facility] [address] [place], [place], [address] PULMONARY VISIT REPORT Observed: 05/14/2018 Status: F Source: [place] 8:44 AM [facility] REPOSITORY [facility] [place] [address] [place], [place] [address] OFFICE VISIT Date of Service: 05/13/18 MR#: [id number] Acct: [id number] Name: MICHAEL GARCIA Rep #: [id number] : 1945 Provider: Josi Hickman Age/Sex: 72/F Location: [facility]W Status: Signed Assessment AND Plan 1. Acute [...] 03/01/18 [History Confirmed 04/28/18] Hydrocodone Bitart/Apap 5-325 [Poway 5MG-325MG] 1 tab PO Q6H PRN PRN [...] F Source: CHRISTOPHER PROFILE (BMP) 6:42 AM [facility] REPOSITORY TYPE CODE TESTS RESULT OUT OF [...] GAP 12 Performed By: #### L500.2500 #### [facility] [address] [place], [address] BASIC METABOLIC Collected: 05/07/2018 Status: F Source: RUMNEY PROFILE ([facility]) 12:39 PM [facility] REPOSITORY TYPE CODE TESTS RESULT OUT OF [...] GAP 8 Performed By: #### L500.2500 #### [facility] [address] [place], [address] SURGERY VISIT REPORT Observed: 04/28/2018 Status: F Source: RUMNEY 1:35 PM [facility] REPOSITORY [facility] [address] [place] [address] OFFICE VISIT Date of Service: 04/28/18 MR#: [id number] Acct: [id number] Name: MICHAEL GARCIA Rep #: [id number] : 1945 Provider: Evangelina Hendricks PA-C Age/Sex: 72/F Location: [facility] Status: Signed Intake Intake Visit Reasons: Fistula Creation 04/02 Chief Complaint: post fistula placement Pai Gow Manager Required: No Is patient in pain?: No [...] 03/01/18 [History Confirmed 04/28/18] Hydrocodone Bitart/Apap 5-325 [Poway 5MG-325MG] 1 tab PO Q6H PRN PRN 2 Days #5 tab 04/02/18 [Rx Confirmed 04/28/18] furosemide 40 mg tablet 40 mg PO .COMPLEX 04/06/18 [History Confirmed 04/28/18] pantoprazole 40 mg tablet,delayed release 40 mg PO QDAY 04/06/18 [History Confirmed 04/28/18] amiodarone 200 mg tablet 200 mg PO QDAY 04/28/18 [History Confirmed 04/28/18] [facility] Medical History Chronic renal insufficiency, stage V [...] have chest catheters. Dr. Jenkins is her account assistant. She continues to perform hand exercises. She [...] PULMONARY FUNCTION Observed: 04/21/2018 Status: F Source: RUMNEY TEST 2:02 PM [facility] REPOSITORY [facility] Pulmonary Services/Neurology [address] [place] [address] MR#: [id number] Acct: [id number] Name: MICHAEL GARCIA Rose Rep #: [id number] : 1945 72 From: Aydin Carroll DO Referring Dr: Josi Hickman SALESPERSON [employer] Status: REG CLI Ordering Dr: Date: Location: [place] Sex: F C INTRODUCTION: The patient is [...] Date Dictated: 04/21/18 135 Date Transcribed: 04/21/181356 Physician Locums Urgent Care: [place] Signed CARDIOLOGY VISIT Observed: 04/13/2018 Status: F Source: RUMNEY REPORT 10:22 AM [facility] REPOSITORY [facility] [address] [place] [address]. [address] [place] [address] OFFICE VISIT Date of Service: 04/07/18 MR#: [id number] Acct: [id number] Name: MICHAEL GARCIA Rep #: [id number] : 1945 Provider: Darien Mcclendon MD Age/Sex: 72/F Location: [facility] Status: Signed [facility] Details: MICHAEL GARCIA, is a 72 F [...] f/up (DC 03-03) - r/s from DT Pai Gow Manager Required: No Is patient in pain?: No [...] 03/01/18 [History Confirmed 04/07/18] Hydrocodone Bitart/Apap 5-325 [Poway 5MG-325MG] 1 tab PO Q6H PRN PRN [...] prior to saving. Follow Up 4 Months ([facility]/MMM) Coding Level of Care Code Off vis,est,level [...] 04/07/2018 Status: F Source: CHRISTOPHER 4:04 PM [facility] REPOSITORY [facility] [address] [place] [address] OFFICE VISIT Date of Service: 04/07/18 MR#: [id number] Acct: [id number] Name: MICHAEL GARCIA Rep #: [id number] : 1945 Provider: Evangelina Hendricks PA-C Age/Sex: 72/F Location: [facility] Status: Signed Intake Intake Visit Reasons: Fistula Creation 04/02 Chief Complaint: post fistula placement Pai Gow Manager Required: No Is patient in pain?: No [...] 03/01/18 [History Confirmed 04/07/18] Hydrocodone Bitart/Apap 5-325 [Poway 5MG-325MG] 1 tab PO Q6H PRN PRN [...] LEAD ELECTROCARDIOGRAM Observed: 04/03/2018 Status: F Source: RUMNEY 10:09 AM [facility] REPOSITORY [facility] Cardiovascular Services [address] [place] [address] 12 Lead EKG 04/02/18 0636 MR#: [id number] Acct: [id number] Name: MICHAEL GARCIA Rep #: [id number] : 1945 72 From: Darien Mcclendon MD Attending Dr: Anoop Angeles MD Status: [facility] Ordering Dr: Anoop Angeles MD Date: 04/02/18 Location: [facility] Sex: F C Admitted: Test Reason : [...] leads Confirmed by DARIEN MCCLENDON MD ([id number]), video effects editor OSIEL HINES ([id number]) on 04/03/2018 10:08:33 AM Referred By: Anoop Angeles Confirmed By:DARIEN MCCLENDON MD 04/03/18 1008 Date Darien Mcclendon MD CC: Anoop Angeles MD; Mat Duffy MD Signed DISCHARGE INSTRUCTION Observed: 04/02/2018 Status: F Source: CHRISTOPHER 12:02 PM [facility] REPOSITORY [facility] Medical Records Department [address] [place] [address] Instructions for Home/Discharge Instructions 04/02/18 0851 MR#: [id number] Acct: [id number] Name: MICHAEL GARCIA Rep #: [id number] : 1945 72 From: Anoop Angeles MD [...] mg PO DAILY 03/01/18 Hydrocodone Bitart/Apap 5-325 [Poway 5MG-325MG] 1 tablet PO Q6H PRN PRN 2 Days #5 tablet 04/02/18 The following prescriptions were given: Hydrocodone Bitart/Apap 5-325 [Poway 5MG-325MG] 1 tablet PO Q6H PRN PRN 2 Days #5 tablet PRN Reason: Pain Primary Care Physician: Mat Duffy MD [Primary Care Provider] - Please Follow Up With: Anoop Angeles MD - [phone] When: Call to make an appointment for follow up in 10 days. 04/02/18 1202 <Electronically signed by Anoop Angeles MD> Date Anoop Angeles MD CC: Mat Duffy MD OPERATIVE REPORT Observed: 04/02/2018 Status: F Source: CHRISTOPHER 10:31 AM [facility] REPOSITORY [facility] Medical Records Department [address] [place] [address] Operative Report 04/02/18 1027 MR#: [id number] Acct: [id number] Name: MICHAEL GARCIA Rep #: [id number] : 1945 72 From: Anoop Angeles MD PCP: Mat Duffy MD Status: [facility] Y Location: [place] [address] Problem List (1) Chronic renal insufficiency, stage [...] Angeles MD CC: Anoop Angeles MD; Mat uDffy MD Signed BEDSIDE GLUCOSE Collected: 04/02/2018 Status: F Source: CHRISTOPHER 6:55 AM [facility] REPOSITORY TYPE CODE TESTS RESULT OUT OF REFERENCE UNITS RANGE LAB L501.080 70-110 mg/dL High BEDSIDE GLU 210 Result Comment: MANAGEMENT OF PATIENT CARE PER NURSING PROTOCOL Performed By: #### L501.080 #### [facility] Point of [address] [place], [place] [address] BASIC METABOLIC Collected: 04/02/2018 Status: F Source: CHRISTOPHER PROFILE (BMP) 6:50 AM [facility] REPOSITORY TYPE CODE TESTS RESULT OUT OF [...] GAP 6 Performed By: #### L500.2500 #### [facility] [address] [place], [address] CBC-COMPLETE BLOOD CNT Collected: 04/02/2018 Status: F Source: CHRISTOPHER NO DIFF 6:50 AM [facility] REPOSITORY TYPE CODE TESTS RESULT OUT OF [...] MPV 9.3 Performed By: #### L100.0500 #### [facility] [address] [place], [address] PROGRESS Observed: 03/05/2018 Status: COMPLETED Source: [place] 9:24 AM [facility] REPOSITORY HNO ID: [id number] Author: Mat Duffy Service: (none) Author Type: [...] Type 2 Diabetes Mellitus With Renal Manifestations ([facility]) Essential Hypertension With Goal Blood Pressure Less Than 130/85 Hyperlipidemia Legally Blind Diabetic Peripheral Neuropathy Associated With Type 2 Diabetes Mellitus ([facility]) Primary 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 ([facility]) Ckd (Chronic Kidney Disease) Stage V Requiring Chronic Dialysis ([facility]) Hypoxemia Chronic Diastolic Chf (Congestive Heart Failure) ([facility]) Anemia in Stage 3 Chronic Kidney Disease Paroxysmal Atrial Fibrillation ([facility]) Peripheral Arterial Occlusive Disease ([facility]) Current Outpatient Prescriptions: acetaminophen (TYLENOL [...] MAURICE FriasOV Observed: 03/05/2018 Status: COMPLETED Source: [place] 9:20 AM [facility] REPOSITORY Office Visit (INTMWS) MICHAEL GARCIA ([id number]) 1945 F BLD Date Time Provider Department [...] Mat Duffy MD Referring Provider: MAT DUFFY [[id number]] Allergies As of Date: 03/05/2018 (No Known Allergies) Date Reviewed: 03/05/2018 Reviewed by: Mya Willams LPN - Fully Assessed Reason for Visit: F/U 3 Month [443] TCM [Other] Cmt: Discharged from [facility] 03/03/2018 Primary Visit Diagnosis:Acute on chronic respiratory [...] 03/05/2018 9:19 AM >> MYA WILLAMS LPN [facility] March 05, 2018 9:19 AM D/C [...] VISIT REPORT Observed: 03/05/2018 Status: F Source: [place]UMNEY 8:01 AM [facility] [address] [place] [address] [address] [place] [address] OFFICE VISIT Date of Service: 03/05/18 MR#: [id number] Acct: [id number] Name: JOSEMICHAEL Rose Rep #: [id number] : 1945 Provider: Anoop Angeles MD Age/Sex: 72/F Location: [facility] Status: Signed Intake Vital Signs03/05/18 Height 5 ft 5 in 03/05/18 Weight: 209 lb 3 oz 03/05/18 Body Mass Index (BMI) 34.8 03/05/18 Blood Pressure 108/67 Intake Visit Reasons: fistula creation Chief Complaint: fistula placement Pai Gow Manager Required: No Is patient in pain?: No [...] today. On February 26, 2018 at the [facility] she had bilateral upper extremity vein mapping. This demonstrates that bilateral upper extremity cephalic and basilic veins are patent and compressible. Bilateral brachial and radial arteries demonstrate normal flow. The patient is right arm dominant. The patient was hospitalized at the [facility] January 19 - January 22 [...] distress Nutritional Appearance: overweight Orientation: alert, awake [facility] Head: normal to inspection Eyes General: appearance [...] create for her. It may require additional optometry assistant with balloon maturation. In addition it [...] LEAD ELECTROCARDIOGRAM Observed: 03/04/2018 Status: F Source: RUMNEY 2:39 PM [facility] REPOSITORY [facility] Cardiovascular Services [address] [place] [address] 12 Lead EKG 03/01/18 0937 MR#: [id number] Acct: [id number] Name: GARCIAMICHAEL Rep #: [id number] : 1945 72 From: Reinier Lang MD Attending Dr: Mata Engle DO Status: DIS IN Ordering Dr: Severiano Nino MD Date: 03/01/18 Location: [facility] Sex: F C Admitted: 03/01/18 Test Reason [...] wave progression Confirmed by REINIER LANG MD ([id number]), video effects editor HONORIO SHEFFIELD ([id number]) on 03/04/2018 2:39:19 PM Referred By: Anoop Angeles Confirmed By:REINIER LANG MD 03/04/18 1439 Date Reinier Lang MD CC: SEVERIANO NINO MD; Mata Engle DO; Mat Duffy MD Signed DISCHARGE SUMMARY Observed: 03/03/2018 Status: F Source: RUMNEY 9:11 AM [facility] REPOSITORY [facility] Medical Records Department [address] [place] [address] [place] [address] Discharge Summary 03/03/18907 MR#: [id number] Acct: [id number] Name: MICHAEL GARCIA Rep #: [id number] : 1945 72 From: Mata Engle DO PCP: Mat Duffy MD Status: ADM IN Y Location: [place] [address] Discharge Date and Diagnosis - Problem List [...] Within 2 Weeks [facility] When: every Friday, Friday, Friday Disposition: Home Minutes spent on discharge:: 28 Patient Condition:: Good Medical Necessity - Tobacco Use Smoking Status: Former smoker Meaningful Use Info Meaningful Use Diagnoses (Choose all that apply): None applicable Code Visit Inpatient E AND M: 84570 Disch Hosp 03/03/18910 <Electronically signed by Mata Engle DO> Date Mata Engle DO Cosigner Signature (if applicable): Date CC: Mata Engle DO; Mat Duffy MD Signed DISCHARGE INSTRUCTION Observed: 03/03/2018 Status: F Source: RUMNEY 9:08 AM [facility] REPOSITORY [facility] Medical Records Department [address] [place] [address] Instructions for Home/Discharge Instructions 03/03/18905 MR#: [id number] Acct: [id number] Name: MICHAEL GARCIA Rep #: [id number] : 1945 72 From: Mata Engle DO PCP: Mat Duffy MD Status: ADM IN - Discharge Diagnoses Current Active Problems: Current Active and Chronic Problems (Last Updated 01/22/18 @ 10:02 by Viviana Childers, SALESPERSON [employer]ERE[employer] EQUIPMENT-C) Acute hypercapnic respiratory failure (Acute) Lethargy (Acute) [...] 2 Weeks [facility] When[facility] every Friday, Friday, Friday Proposed Discharge Date: 03/03/18 03/03/18 0908 <Electronically signed by Mata Engle DO> Date Mata Engle DO CC: Aydin Carroll D.O.; Domingo Jenkins M.D.; Mat Duffy MD BEDSIDE GLUCOSE Collected: 03/03/2018 Status: F Source: CHRISTOPHER 6:25 AM [facility] REPOSITORY TYPE CODE TESTS RESULT OUT OF REFERENCE UNITS RANGE LAB L501.080 70-110 mg/dL High BEDSIDE GLU 180 Result Comment: Insulin Given MANAGEMENT OF PATIENT CARE PER NURSING PROTOCOL Performed By: #### L501.080 #### [facility] Laboratory Point of Care [address] [place] [address] BASIC METABOLIC Collected: 03/03/2018 Status: F Source: RUMNEY PROFILE (BMP) 5:20 AM [facility] REPOSITORY TYPE CODE TESTS RESULT OUT OF [...] GAP 10 Performed By: #### L500.2500 #### [facility] Laboratory [address] [place], [address] CONSULTATION Observed: 03/03/2018 Status: F Source: RUMNEY 5:18 AM [facility] REPOSITORY [facility] Medical Records Department [address] [place] [address] Consultation 03/02/18 0844 MR#: [id number] Acct: [id number] Name: MICHAEL GARCIA Rep #: [id number] : 1945 72 From: Rocael Valencia MD PCP: Mat Duffy MD Status: ADM IN Y Location: [place] [address] Problem List (1) Lethargy Status: Acute (2) [...] medical history listed below, who presented to [facility] on 03/01/2019 after being found [...] Updated 01/22/18 @ 10:02 by Viviana Childers, SALESPERSON [employer] EQUIPMENT-C) ESRD (end stage renal disease) on dialysis [...] Surgical History: cholecystectomy, rotator cuff repair, - 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 History: No pertinent 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 PROFESSOR history Lives: Spouse/ Significant Other Smoking Status: Former smoker Drugs: None - *Family History Maternal History Items: Cancer, Diabetes, Renal Disease Paternal History Items: Diabetes, Heart Disease, Renal Disease Review of Systems Unable to obtain accurate/complete ROS d/t: Per , see HPI Patient Problems: Active and Suspected Problems (Last Updated 01/22/18 @ 10:02 by Viviana Childers, SALESPERSON [employer] EQUIPMENT-C) Acute hypercapnic respiratory failure (Acute) Lethargy (Acute) [...] Updated 01/22/18 @ 10:02 by Viviana Childers, SALESPERSON [employer] EQUIPMENT-C) Acute hypercapnic respiratory failure (Acute) Lethargy (Acute) [...] therapy. Code Visit Inpatient E AND M: 77000 Init Hosp L3 03/03/1818 <Electronically signed by Rocael Valencia MD> Date Rocael Valencia MD Cosigner Signature (if applicable): Date CC: Aydin Carroll D.O.; Domingo Jenkins M.D.; Mat Duffy MD Signed BEDSIDE GLUCOSE Collected: 03/02/2018 Status: F Source: CHRISTOPHER 11:26 PM [facility] REPOSITORY TYPE CODE TESTS RESULT OUT OF REFERENCE UNITS RANGE LAB L501.080 70-110 mg/dL High BEDSIDE GLU 176 Result Comment: Insulin Given MANAGEMENT OF PATIENT CARE PER NURSING PROTOCOL Performed By: #### L501.080 #### [facility] Laboratory Point of Care [address] [place] [address] CONSULTATION Observed: 03/02/2018 Status: F Source: RUMNEY 5:27 PM [facility] REPOSITORY [facility] Medical Records Department [address] [place] [address] Consultation 03/02/18 1724 MR#: [id number] Acct: [id number] Name: MICHAEL GARCIA Rep #: [id number] : 1945 72 From: Trell Jenkins MD PCP: Mat Duffy MD Status: ADM IN Y Location: [place] [address] Problem List (1) ESRD (end stage renal [...] pain/fever Aspirin (Aspirin) 325 mg PO DAILY@0800 [facility] Last Admin: 03/02/18 15:47 Dose: 325 mg Atorvastatin Calcium (Lipitor) 40 mg PO QHS [facility] Last Admin: 03/01/18 21:28 Dose: Not Given Clonidine (Catapres) 0.1 mg PO TID [facility] Last Admin: 03/02/18 15:46 Dose: 0.1 mg Dextrose (D50w Syringe) 0 gm IV X1 PRN; Protocol PRN Reason: Hypoglycemia Ergocalciferol (Vitamin D) 50,000 unit PO QMONTH [facility] Furosemide (Lasix) 40 mg IV BID@1000,1800 [facility] Last Admin: 03/02/18 16:02 Dose: 40 mg Glucagon () 1 mg IM .X1 PRN PRN Reason: Hypoglycemia Heparin Sodium (Porcine) (Heparin Na) 5,000 unit SC Q8 [facility] Last Admin: 03/02/18 15:46 Dose: 5,000 units Insulin Aspart (Novolog Flexpen (Bkc)) 0 units SC Q6 RUBI PRN Reason: Protocol Last Admin: 03/02/18 11:43 Dose: Not Given Magnesium Hydroxide (Milk Of Magnesia) 30 ml PO DAILY PRN PRN PRN Reason: Constipation Metoprolol Succinate (Toprol Xl (Beta Stephania)) 25 mg PO DAILY [facility] Last Admin: 03/02/18 15:47 Dose: 25 mg Nystatin (Mycostatin Powder) 1 applic TOPICAL BID RUBI PRN Reason: Protocol Last Admin: 03/02/18 15:44 Dose: 1 applicatio Pantoprazole Sodium (Protonix) 40 mg PO DAILY [facility] Last Admin: 03/02/18 15:46 Dose: 40 mg Polysaccharide Iron Complex (Ferrex 150) 150 mg PO DAILY [facility] Last Admin: 03/02/18 15:47 Dose: 150 mg Sodium Chloride () 5 - 30 ml IV UD PRN PRN Reason: SALINE FLUSH Last Admin: 03/02/18 15:47 Dose: 10 ml - Past Medical History Past Medical History (Chronic Problems): Chronic Problems (Last Updated 01/22/18 @ 10:02 by Viviana Childers, SALESPERSON [employer] E[employer]IPMENT-C) ESRD (end stage renal disease) on dialysis [...] now completely discussed with at bedside 03/02/18 9846 <Electronically signed by Trell Jenkins MD> Date Trell Jenkins MD Cosigner Signature (if applicable): Date CC: Aydin Carroll D.O.; Domingo Jenkins M.D.; Mat Duffy MD Signed BEDSIDE GLUCOSE Collected: 03/02/2018 Status: F Source: CHRISTOPHER 4:47 PM [facility] REPOSITORY TYPE CODE TESTS RESULT OUT OF REFERENCE UNITS RANGE LAB L501.080 70-110 mg/dL High BEDSIDE GLU 169 Result Comment: MANAGEMENT OF PATIENT CARE PER NURSING PROTOCOL Performed By: #### L501.080 #### [facility] Laboratory Point of Care [address] [place], [place] [address] HEPATITIS B SURFACE Collected: 03/02/2018 Status: F Source: CHRISTOPHER AG 11:45 AM [facility] REPOSITORY TYPE CODE TESTS RESULT OUT OF RANGE REFERENCE UNITS LAB L3100.0400 Negative Normal HB Negative SURF AG Result Comment: Performed at: [facility] [id number] Cottage Attendant: Ayad Joy PhD, Phone: [phone] Performed By: #### L3100.0390 #### [facility] (refer to report for specific site) refer to report for address and phone number BEDSIDE GLUCOSE Collected: 03/02/2018 Status: F Source: CHRISTOPHER 11:37 AM [facility] REPOSITORY TYPE CODE TESTS RESULT OUT OF REFERENCE UNITS RANGE LAB L501.080 70-110 mg/dL High BEDSIDE GLU 121 Result Comment: MANAGEMENT OF PATIENT CARE PER NURSING PROTOCOL Performed By: #### L501.080 #### [facility] Laboratory Point of Care [address] [place] [address] BEDSIDE GLUCOSE Collected: 03/02/2018 Status: F Source: CHRISTOPHER 5:18 AM [facility] REPOSITORY TYPE CODE TESTS RESULT OUT OF REFERENCE UNITS RANGE LAB L501.080 70-110 mg/dL High BEDSIDE GLU 166 Result Comment: Insulin Given Dr Orders Followed MANAGEMENT OF PATIENT CARE PER NURSING PROTOCOL Performed By: #### L501.080 #### [facility] Laboratory Point of Care [address] [place] [address] CBC W/DIFF, AUTOMATED Collected: 03/02/2018 Status: F Source: CHRISTOPHER 5:11 AM [facility] REPOSITORY TYPE CODE TESTS RESULT OUT OF [...] Lymph 0.71 Performed By: #### L100.0100 #### [facility] Laboratory [address] [place], [address] BASIC METABOLIC Collected: 03/02/2018 Status: F Source: CHRISTOPHER PROFILE (BMP) 5:11 AM [facility] REPOSITORY TYPE CODE TESTS RESULT OUT OF [...] Performed By: #### L500.2500, L501.2300, L501.5200 #### [facility] Laboratory [address] [facility]. [place], [place], [id number] PHOSPHORUS Collected: 03/02/2018 Status: F Source: RUMNEY 5:11 AM [facility] REPOSITORY TYPE CODE TESTS RESULT OUT OF RANGE REFERENCE UNITS LAB L501.2300 2.5-4.9 mg/dL High PHOS 5.5 Performed By: #### L500.2500, L501.2300, L501.5200 #### [facility] Laboratory [address] [place], [place], [id number] MAGNESIUM Collected: 03/02/2018 Status: F Source: RUMNEY 5:11 AM [facility] REPOSITORY TYPE CODE TESTS RESULT OUT OF RANGE REFERENCE UNITS LAB L501.5200 1.6-2.6 mg/dL Normal MG 2.0 Performed By: #### L500.2500, L501.2300, L501.5200 #### [facility] Laboratory [address] [place], [address] BLOOD GASES BY CPS Collected: 03/01/2018 Status: F Source: CHRISTOPHER 11:43 PM [facility] REPOSITORY TYPE CODE TESTS RESULT OUT OF [...] ISTAT 94 Performed By: #### L9000.0800 #### [facility] Laboratory Point of Care [address] [place] [address] BEDSIDE GLUCOSE Collected: 03/01/2018 Status: F Source: CHRISTOPHER 11:06 PM [facility] REPOSITORY TYPE CODE TESTS RESULT OUT OF REFERENCE UNITS RANGE LAB L501.080 70-110 mg/dL High BEDSIDE GLU 136 Result Comment: Dr Guadarrama Followed MANAGEMENT OF PATIENT CARE PER NURSING PROTOCOL Performed By: #### L501.080 #### [facility] Laboratory Point of Care [address] [place] [address] BLOOD GASES BY CPS Collected: 03/01/2018 Status: F Source: CHRISTOPHER 7:39 PM [facility] REPOSITORY TYPE CODE TESTS RESULT OUT OF [...] ISTAT 95 Performed By: #### L9000.0800 #### [facility] Laboratory Point of Care [address] [facility] [place] [address] HISTORY AND PHYSICAL Observed: 03/01/2018 Status: F Source: RUMNEY EXAM 5:22 PM [facility] REPOSITORY [facility] Medical Records Department [address] [place] [address] History and Physical 03/01/18 1449 MR#: [id number] Acct: [id number] Name: MICHAEL GARCIA Rose Rep #: [id number] : 1945 72 From: Jen Rosales MD PCP: Mat Duffy MD Status: ADM IN Y Location: [place] [address] Problem List (1) Altered mental status, unspecified [...] Updated 01/22/18 @ 10:02 by Viviana Childers SALESPERSON STEREO EQUIPMENT-C) ESRD (end stage renal disease) on dialysis [...] Surgical History: cholecystectomy, rotator cuff repair, - 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 It may contain incorrect words, spelling, and punctuation that were not noted in checking the note before signing. Code Visit Inpatient E AND M: 32193 Init Hosp L3 03/01/18 1722 <Electronically signed by Jen Rosales MD> Date Jen Rosales MD Cosigner Signature: Date (if applicable) CC: Jen Rosales MD; Mat Duffy MD Signed EMERGENCY DEPARTMENT Observed: 03/01/2018 Status: F Source: RUMNEY SUMMARY 4:35 PM [facility] REPOSITORY [facility] Medical Records Department [address] [place] [address] Emergency Department Summary 03/01/18 0940 MR#: [id number] Acct: [id number] Name: MICHAEL GARCIA Rep #: [id number] : 1945 72 From: Severiano Nino MD PCP: Mat Duffy MD Status: ADM IN History of Present Illness Chief Complaint: Alt LOC 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 Call [facility] ([phone]) or report to the closest Emergency Room. Call 911 if necessary. 03/01/18 1635 <Electronically signed by Severiano Nino MD> Date Severiano Nino MD Cosigner Signature (If Indicated): Date CC: Mat Duffy MD BEDSIDE GLUCOSE Collected: 03/01/2018 Status: F Source: RUMNEY 4:23 PM [facility] REPOSITORY TYPE CODE TESTS RESULT OUT OF REFERENCE UNITS RANGE LAB L501.080 70-110 mg/dL High BEDSIDE GLU 192 Result Comment: MANAGEMENT OF PATIENT CARE PER NURSING PROTOCOL Performed By: #### L501.080 #### [facility] Laboratory [facility] [place], [place] [address] TROPONIN-I Collected: 03/01/2018 Status: F Source: RUMNEY 4:15 PM [facility] REPOSITORY Order Comment: 'TROP' Serial specimen #1, #2 or #3: 2 TYPE CODE TESTS RESULT OUT OF RANGE REFERENCE UNITS LAB L501.4010 <0.045 ng/mL Normal < 0.015 TROPONIN-I Result Comment: TROPONIN-I EXPECTED VALUES <0.045 Negative 0.045 - 0.590 Consistent with Cardiac Damage > OR = 0.600 Critical Value Not every elevated troponin is indicative of MS. These values should be used with clinical judgement in examining the patient's clinical picture for diagnosis. To establish a diagnosis of MS versus myocardial injury, there must be a demonstrated rise and/or fall in the troponin values, in addition to ischemic symptoms, EKG changes, new regional wall motion abnormality, and/or angiographical evidence. PLEASE NOTE: REFERENCE RANGES EDITED 18 Performed By: #### L501.4010 #### [facility] Laboratory [address] [place], [address] MAGNESIUM Collected: 03/01/2018 Status: F Source: CHRISTOPHER 4:15 PM [facility] REPOSITORY TYPE CODE TESTS RESULT OUT OF RANGE REFERENCE UNITS LAB L501.5200 1.6-2.6 mg/dL Normal MG 1.8 Performed By: #### L501.5200 #### [facility] Laboratory [address] [place], [address] URINE DRUG SCREEN Collected: 03/01/2018 Status: F Source: CHRISTOPHER (VISTA) 3:43 PM [facility] REPOSITORY TYPE CODE TESTS RESULT OUT OF [...] Normal NEGATIVE Performed By: #### L505.5000 #### [facility] Laboratory [address] [place], [address] BNP,B-TYPE NATRIURETIC Collected: 03/01/2018 Status: F Source: CHRISTOPHER PEPTIDE 3:40 PM [facility] REPOSITORY Order Comment: Comments: add on to blood draw from ED TYPE CODE TESTS RESULT OUT OF RANGE REFERENCE UNITS LAB L503.6620 0-100 pg/mL High B-TYPE 475.1 JUAN PABLO PEP Performed By: #### L503.6620 #### [facility] Laboratory [address] [facility] [place], [address] URINALYSIS, COMPLETE Collected: 03/01/2018 Status: F Source: CHRISTOPHER 12:00 PM [facility] REPOSITORY Order Comment: Order Date: 03/01/18 How [...] 0-5 SEEN Performed By: #### L400.0001 #### [facility] Laboratory [address] [place], [address] BLOOD GASES BY CPS Collected: 03/01/2018 Status: F Source: RUMNEY 10:10 AM [facility] REPOSITORY TYPE CODE TESTS RESULT OUT OF [...] ISTAT 93 Performed By: #### L9000.0800 #### [facility] Laboratory Point of Care [address] [place] [address] CBC W/DIFF, AUTOMATED Collected: 03/01/2018 Status: F Source: RUMNEY 9:40 AM [facility] REPOSITORY TYPE CODE TESTS RESULT OUT OF [...] Lymph 0.88 Performed By: #### L100.0100 #### [facility] [address] [facility] [place], [address] CHEST 1 VIEW Observed: 03/01/2018 Status: F Source: CHRISTOPHER (PORTABLE) 9:40 AM [facility] REPOSITORY [facility] Imaging Services [address] [place] [address] Chest 1 View (Portable) MR#: [id number] Acct: [id number] Name: MICHAEL GARCIA Rep #: [id number] : 1945 F 72 From: Javad Jalloh MD PCP: Mat Duffy MD Status: PRE ER Study: Chest 1 View (Portable) Date of Exam: 03/01/18 Exam# [id number] Ordering Dr: Severiano Nino MD STUDY: X-RAY [...] CC: SEVERIANO NINO MD; Mat Duffy MD [facility]: Signed BASIC METABOLIC Collected: 03/01/2018 Status: F Source: CHRISTOPHER PROFILE (BMP) 9:40 AM [facility] REPOSITORY TYPE CODE TESTS RESULT OUT OF [...] 9 Performed By: #### L500.2500, L501.4010 #### [facility] [address] [place], [address] TROPONIN-I Collected: 03/01/2018 Status: F Source: RUMNEY 9:40 AM [facility] REPOSITORY TYPE CODE TESTS RESULT OUT OF RANGE REFERENCE UNITS LAB L501.4010 <0.045 ng/mL Normal < 0.015 TROPONIN-I Result Comment: TROPONIN-I EXPECTED VALUES <0.045 Negative 0.045 - 0.590 Consistent with Cardiac Damage > OR = 0.600 Critical Value Not every elevated troponin is indicative of MS. These values should be used with clinical judgement in examining the patient's clinical picture for diagnosis. To establish a diagnosis of MS versus myocardial injury, there must be a demonstrated rise and/or fall in the troponin values, in addition to ischemic symptoms, EKG changes, new regional wall motion abnormality, and/or angiographical evidence. PLEASE NOTE: REFERENCE RANGES EDITED 18 Performed By: #### L500.2500, L501.4010 #### [facility] [address] [place], [address] BRAIN/HEAD WITHOUT Observed: 03/01/2018 Status: F Source: RUMNEY CONTRAST 9:40 AM [facility] REPOSITORY [facility] Imaging Services [address] [facility] [address] Brain/Head without Contrast MR#: [id number] Acct: [id number] Name: GARCIAMICHAEL Rep #: [id number] : 1945 F 72 From: Javad Jalloh MD PCP: Mat Duffy MD Status: REG ER Study: Brain/Head without Contrast Date of Exam: 03/01/18 Exam# [id number] Ordering Dr: Severiano Nino MD STUDY: CT [...] related with chronic sinusitis. Electronically Signed: Javad aJlloh, at 11:00 EDT Tel , Service support , CT/Brain/Head without Contrast CC: SEVERIANO NINO MD; Mat Duffy MD Physician [facility]: Signed VENOUS DUPLEX UPPER Observed: 02/26/2018 Status: F Source: RUMNEY EXTREMITY 5:52 PM [facility] REPOSITORY [facility] Cardiovascular Services [address] [place] [address] Saphenous Vein Mapping, Bilat 02/26/18 1329 MR#: [id number] Acct: [id number] Name: MICHAEL GARCIA Rose Rep #: [id number] : 1945 72 From: Anoop Angeles MD [...] Referring Physician: Anoop Angeles Performed By: Durga Trpip RVT 02/26/181751 Date Anoop Angeles MD CC: Anoop Angeles MD; Mat Duffy MD Date Dictated: 02/26/18 1329 Date Transcribed: 02/26/181751 Physician [facility]: Signed CNPTOUTREACH Observed: 02/17/2018 Status: COMPLETED Source: [place]ONG 12:00 AM [facility] REPOSITORY Patient Outreach (FAMPST) MICHAEL GARCIA ([id number]) 1945 F BLD Date Time Provider Department 02/17/18 MAT DUFFY FAMPST During your visit today, we recorded the following information about you: Allergies As of Date: 02/17/2018 (No Known Allergies) Date Reviewed: 02/11/2018 Reviewed by: Mya Willams LPN - Fully Assessed Visit Diagnosis:Medication management [Z79.899] Order(s):LIPID PANEL BASIC [SQLIPB] Order #: [id number] FUTURE Prescriptions as of 02/17/2018 Sig: FUROSEMIDE [...] 07/17/18 PROGRESS Observed: 02/11/2018 Status: COMPLETED Source: [place] 5:15 PM [facility] REPOSITORY HNO ID: [id number] Author: Mat Duffy Service: (none) Author Type: Physician Type: Progress Notes Filed: 02/12/2018 12:31 AM Note Text: This note was created using [employer]. Subjective Michael Garcia is a 72 [...] Type 2 Diabetes Mellitus With Renal Manifestations ([facility]) Essential Hypertension With Goal Blood Pressure Less Than 130/85 Hyperlipidemia Legally Blind Diabetic Peripheral Neuropathy Associated With Type 2 Diabetes Mellitus ([facility]) Primary 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 ([facility]) Ckd (Chronic Kidney Disease) Stage V Requiring Chronic Dialysis ([facility]) Hypoxemia Chronic Diastolic Chf (Congestive Heart Failure) ([facility]) Anemia in Stage 3 Chronic [...] MD CNOV Observed: 02/11/2018 Status: COMPLETED Source: [place] 4:40 PM [facility] REPOSITORY Office Visit (INTMWS) MICHAEL GARCIA ([id number]) 1945 F BLD Date Time Provider Department [...] Type 2 Diabetes Mellitus With Renal Manifestations ([facility] [facility] Essential Hypertension With Goal Blood Pressure Less Than 130/85 Hyperlipidemia Legally Blind Diabetic Peripheral Neuropathy Associated With Type 2 Diabetes Mellitus ([facility]) Primary 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 ([facility]) Ckd (Chronic Kidney Disease) Stage V Requiring Chronic Dialysis ([facility]) Hypoxemia Chronic Diastolic Chf (Congestive Heart Failure) ([facility]) Anemia in Stage 3 Chronic [...] LPN - Fully Assessed Reason for Visit: [facility] follow-up [Other] Cmt: Discharged 01/23/2018 Reason For Visit History Recorded Primary Visit Diagnosis:Chronic diastolic CHF (congestive heart failure) ([facility]) [I50.32] Other Visit Diagnoses:Hypoxemia [R09.02] CKD (chronic kidney disease) stage V requiring chronic dialysis ([facility]) [N18.6, Z99.2] Paroxysmal atrial fibrillation ([facility]) [I48.0] Diabetic peripheral neuropathy associated with type [...] LEAD ELECTROCARDIOGRAM Observed: 01/25/2018 Status: F Source: RUMNEY 8:59 PM [facility] REPOSITORY [facility] [place] [address] 12 Lead EKG 01/22/18 0532 MR#: [id number] Acct: [id number] Name: MICHAEL GARCIA Rep #: [id number] : 1945 72 From: Reinier Lang MD Attending Dr: Fahad Sesay Status: DIS IN Ordering Dr: Fahad Sesay MD Date: 01/22/18 Location: [facility] Sex: F C Admitted: 01/19/18 Test Reason [...] wave progression Confirmed by REINIER LANG MD ([id number]), video effects editor HONORIO SHEFFIELD ([id number]) on 01/23/2018 1:25:54 PM Referred By: MAETO Confirmed By:REINIER LANG MD 01/23/18 1325 Date Reinier Lang MD CC: Fahad Sesay; Mat Duffy MD Signed 12 LEAD ELECTROCARDIOGRAM Observed: 01/25/2018 Status: F Source: RUMNEY 8:57 PM [facility] REPOSITORY [facility] Cardiovascular Services [address] [place] [address] 12 Lead EKG 01/19/1818 MR#: [id number] Acct: [id number] Name: JOSEMICHAEL Rose Rep #: [id number] : 1945 72 From: Ortiz Markham MD Attending Dr: Fahad Sesay Status: DIS IN Ordering Dr: Rashawn Sotelo MD Date: 01/19/18 Location: [facility] Sex: F C Admitted: 01/19/18 Test Reason : SOB Blood Pressure : / mmHG Vent. Rate : 078 BPM Atrial Rate : 078 BPM P-R Int : 178 ms QRS Dur : 102 ms QT Int : 420 ms P-R-T Axes : 047 -32 055 degrees QTc Int : 478 ms Normal sinus rhythm Indeterminate axis Abnormal ECG Confirmed by ORTIZ MARKHAM ([id number]), video effects editor HONORIO SHEFFIELD ([id number]) on 01/22/2018 2:45:40 PM Referred By: LOIS Confirmed By:ORTIZ MARKHAM 01/22/18 1445 Date Ortiz Markham MD CC: Fahad Sesay; Rashawn Sotelo MD; Mat Duffy MD Signed DISCHARGE SUMMARY Observed: 01/23/2018 Status: F Source: CHRISTOPHER 11:58 AM [facility] REPOSITORY [facility] Medical Records Department [address] [place] [address] Discharge Summary 01/23/18 1150 MR#: [id number] Acct: [id number] Name: MICHAEL GARCIA Rep #: [id number] : 1945 72 From: Fahad Sesay MD PCP: Mat Duffy MD Status: DIS IN Y Location: [place] [address] Discharge Date and Diagnosis Date of Admission: 01/19/18 Date of Discharge: 01/22/18 - Primary Discharge Diagnosis #1 acute pulmonary edema. #2 acute on chronic hypoxic and hypercapnic respiratory failure. #3 malfunctioning left internal jugular tunneled dialysis catheter, placement of right internal jugular dialysis catheter. - Secondary Discharge Diagnosis Chronic Problems (Last Updated 01/22/18 @ 10:02 by Viviana Childers, [employer]ERSON [employer]) ESRD (end stage renal disease) on dialysis [...] Brett Arcos MD at 15:06 EDT Tel [phone], Service support , Dr. Jones, nephrology. Dr. [...] baseline at home. During the dialysis, that radioisotope technician noticed that the left IJ tunneled [...] applicable Code Visit Inpatient E AND M: 83140 Disch Hosp 01/23/18 1158 <Electronically signed by Fahad Sesay MD> Date Fahad Sesay MD Cosigner Signature (if applicable): Date CC: Fahad Sesay; Domingo Jenkins M.D.; Mat Duffy MD Signed BEDSIDE GLUCOSE Collected: 01/22/2018 Status: F Source: CHRISTOPHER 4:56 PM [facility] REPOSITORY TYPE CODE TESTS RESULT OUT OF RANGE REFERENCE UNITS LAB L501.080 70-110 mg/dL Normal BEDSIDE GLU 79 Result Comment: MANAGEMENT OF PATIENT CARE PER NURSING PROTOCOL Performed By: #### L501.080 #### [facility] Laboratory Point of Care [address] [place] [address] DISCHARGE INSTRUCTION Observed: 01/22/2018 Status: F Source: RUMNEY 3:11 PM [facility] REPOSITORY [facility] Medical Records Department [address] [place] [address] Instructions for Home/Discharge Instructions 01/22/18 1508 MR#: [id number] Acct: [id number] Name: MICHAEL GARCIA Rose Rep #: [id number] : 1945 72 From: Fahad Sesay MD PCP: Mat Duffy MD Status: ADM IN - Discharge Diagnoses Current Active Problems: Current Active and Chronic Problems (Last Updated 01/22/18 @ 10:02 by Viviana Childers, [employer]) Acute on chronic respiratory failure with hypoxia [...] Up With: Juan Daniel Raymundo MD 01/22/18 4477 <Electronically signed by Fahad Sesay MD> Date Fahad Sesay MD CC: Rocael Valencia MD; Domingo Jenkins M.D.; Anoop Angeles MD; Mat Duffy MD HIV - [facility] Collected: 01/22/2018 Status: F Source: CHRISTOPHER 2:23 PM [facility] REPOSITORY TYPE CODE TESTS RESULT OUT OF RANGE REFERENCE UNITS LAB L3890.6005 Nonreactive Normal HIV - [facility] Non-Reactive Performed By: #### L3890.6005 #### [facility] Laboratory [address] [place], [address] HEPATITIS B SURFACE Collected: 01/22/2018 Status: F Source: RUMNEY AG 2:23 PM [facility] REPOSITORY TYPE CODE TESTS RESULT OUT OF RANGE REFERENCE UNITS LAB L3100.0400 Negative Normal HB Negative SURF AG Performed By: #### L3100.0390, L3100.0460, L3100.0528, L3100.0625 #### [facility] (refer to report for specific site) refer to report for address and phone number HEPATITIS B CORE AB Collected: 01/22/2018 Status: F Source: RUMNEY TOTAL 2:23 PM [facility] REPOSITORY TYPE CODE TESTS RESULT OUT OF RANGE REFERENCE UNITS LAB L3100.0460 Negative Normal HEP B Negative CORE,TOT Result Comment: Performed at: [facility] [id number] Cottage Attendant: Ayad Joy PhD, Phone: [phone] Performed By: #### L3100.0390, L3100.0460, L3100.0528, L3100.0625 #### [facility] (refer to report for specific site) refer to report for address and phone number HEP B SURFACE Collected: 01/22/2018 Status: F Source: CHRISTOPHER ANTIBODIES 2:23 PM [facility] REPOSITORY TYPE CODE TESTS RESULT OUT OF [...] C ANTIBODIES Collected: 01/22/2018 Status: F Source: RUMNEY 2:23 PM [facility] REPOSITORY TYPE CODE TESTS RESULT OUT OF RANGE REFERENCE UNITS LAB L3100.0650 0.0-0.9 s/co ratio Normal HEP C AB 0.1 Result Comment: Negative: < 0.8 Indeterminate: 0.8 - 0.9 Positive: > 0.9 The CDC recommends that a positive HCV antibody result be followed up with a HCV Nucleic Acid Amplification test (712018). Performed By: #### L3100.0390, L3100.0460, L3100.0528, L3100.0625 #### [facility] (refer to report for specific site) refer to report for address and phone number OPERATIVE REPORT Observed: 01/22/2018 Status: F Source: RUMNEY 1:33 PM [facility] REPOSITORY [facility] Medical Records Department [address] [place] [address] Operative Report 01/22/18 1327 MR#: [id number] Acct: [id number] Name: MICHAEL GARCIA Rep #: [id number] : 1945 72 From: Anoop Angeles MD PCP: Mat Duffy MD Status: ADM IN Location: [place] [address] Problem List (1) Problem with dialysis access Status: Acute Qualifiers: Encounter type: initial encounter Qualified Code(s): T82.898A - Other specified complication of vascular prosthetic devices, implants and grafts, initial encounter Report of Operation Date of Procedure: 01/22/18 Pre-Operative Diagnosis: Malfunction left internal jugular tunneled dialysis catheters Post-Operative Diagnosis: Same Surgery/Procedure Performed:: Right internal jugular 19 cm pre-curved palindrome catheter placement. Reference number [id number] lot #[id number]. Removal left internal tunneled dialysis catheters Description [...] Anesthesia:: Local MAC Anesthesiologist: Carmen Montemayor 01/22/18 0186 <Electronically signed by Anoop Angeles MD> Date Anoop Angeles MD CC: Rocael Valencia MD; Domingo Jenkins M.D.; Anoop Angeles MD; Mat Duffy MD Signed CHEST 1 VIEW Observed: 01/22/2018 Status: F Source: CHRISTOPHER (PORTABLE) 12:46 PM [facility] REPOSITORY [facility] Imaging [place] [address] Chest 1 View (Portable) MR#: [id number] Acct: [id number] Name: MICHAEL GARCIA Rep #: [id number] : 1945 F 72 From: Brett Arcos MD PCP: Mat Duffy MD Status: ADM IN Study: Chest 1 View (Portable) Date of Exam: 01/22/18 Exam# [id number] Ordering Dr: Anoop Angeles MD STUDY: X-RAY [...] Brett Arcos MD at 15:06 EDT Tel [phone], Service support , CC: Anoop Angeles MD; Mat Duffy MD Physician [facility]: Signed BEDSIDE GLUCOSE Collected: 01/22/2018 Status: F Source: CHRISTOPHER 11:24 AM [facility] REPOSITORY TYPE CODE TESTS RESULT OUT OF REFERENCE UNITS RANGE LAB L501.080 70-110 mg/dL High BEDSIDE GLU 269 Result Comment: MANAGEMENT OF PATIENT CARE PER NURSING PROTOCOL Performed By: #### L501.080 #### [facility] Laboratory Point of Care [address] [facility] [place] [address] BEDSIDE GLUCOSE Collected: 01/22/2018 Status: F Source: CHRISTOPHER 6:51 AM [facility] REPOSITORY TYPE CODE TESTS RESULT OUT OF REFERENCE UNITS RANGE LAB L501.080 70-110 mg/dL High BEDSIDE GLU 195 Result Comment: MANAGEMENT OF PATIENT CARE PER NURSING PROTOCOL Performed By: #### L501.080 #### [facility] Laboratory Point of Care [address] [place] [address] CONSULTATION Observed: 01/22/2018 Status: F Source: RUMNEY 5:55 AM [facility] Medical Records Department [address] [place] [address] Consultation 01/21/18 1832 MR#: [id number] Acct: [id number] Name: MICHAEL GARCIA Rep #: [id number] : 1945 72 From: Anoop Angeles MD PCP: Mat Duffy MD Status: ADM IN Location: [place] [address] Problem List (1) Problem with dialysis access Status: Acute Qualifiers: Encounter type: initial encounter Qualified Code(s): T82.898A - Other specified complication of vascular prosthetic devices, implants and grafts, initial encounter Reason for Consult Date of Consultation: 01/21/18 History of Present Illness: The patient is a 72 year old F [who was admitted to the [facility] on January 19, 2018 with shortness of breath. On December 08, 2017 after being consulted I placed a left internal jugular 23 cm pre-curved tunneled palindrome catheter for hemodialysis. At that time the patient had previously had a right internal jugular temporary catheters placed in the intensive care unit. According to the patient she was referred by Dr. Romeo to [facility][1] changed over to new catheters. Patient apparently [...] 01/22/2018 Status: F Source: CHRISTOPHER 5:50 AM [facility] REPOSITORY TYPE CODE TESTS RESULT OUT OF [...] MACROCYTE 2+ Performed By: #### L100.0100 #### [facility] Laboratory [address] [facility] [place], [address] PROTHROMBIN TIME W/INR Collected: 01/22/2018 Status: F Source: RUMNEY 5:50 AM [facility] REPOSITORY TYPE CODE TESTS RESULT OUT OF RANGE REFERENCE UNITS LAB L300.4150 11.7-14.9 SECONDS Normal PROTIME 14.5 LAB L300.4200 Normal INR 1.1 Performed By: #### L300.3900, L300.4310 #### [facility] [address] [facility] [place], [address] PARTIAL THROMBOPLAST Collected: 01/22/2018 Status: F Source: RUMNEY TIME 5:50 AM [facility] REPOSITORY TYPE CODE TESTS RESULT OUT OF REFERENCE UNITS RANGE LAB L300.4310 24.1-36.2 Seconds High PTT 41.6 Performed By: #### L300.3900, L300.4310 #### [facility] [address] [place], [address] BASIC METABOLIC Collected: 01/22/2018 Status: F Source: CHRISTOPHER PROFILE (BMP) 5:50 AM [facility] REPOSITORY TYPE CODE TESTS RESULT OUT OF [...] GAP 5 Performed By: #### L500.2500 #### [facility] [address] [facility] [place], [address] HEMOGLOBIN A1C Collected: 01/22/2018 Status: F Source: CHRISTOPHER 5:50 AM [facility] REPOSITORY TYPE CODE TESTS RESULT OUT OF RANGE REFERENCE UNITS LAB L501.9985 4.2-6.3 % High HGB A1C 6.4 Performed By: #### L501.9985 #### [facility] [address] [facility] [place], [address] BEDSIDE GLUCOSE Collected: 01/21/2018 Status: F Source: CHRISTOPHER 10:10 PM [facility] REPOSITORY TYPE CODE TESTS RESULT OUT OF REFERENCE UNITS RANGE LAB L501.080 70-110 mg/dL High BEDSIDE GLU 356 Result Comment: MANAGEMENT OF PATIENT CARE PER NURSING PROTOCOL Performed By: #### L501.080 #### [facility] Laboratory Point of Care [address] [facility] [place] [address] BEDSIDE GLUCOSE Collected: 01/21/2018 Status: F Source: CHRISTOPHER 5:32 PM [facility] REPOSITORY TYPE CODE TESTS RESULT OUT OF REFERENCE UNITS RANGE LAB L501.080 70-110 mg/dL High BEDSIDE GLU 148 Result Comment: MANAGEMENT OF PATIENT CARE PER NURSING PROTOCOL Performed By: #### L501.080 #### [facility] Laboratory Point of Care [address] [place], [place] [address] BEDSIDE GLUCOSE Collected: 01/21/2018 Status: F Source: CHRISTOPHER 12:03 PM [facility] REPOSITORY TYPE CODE TESTS RESULT OUT OF REFERENCE UNITS RANGE LAB L501.080 70-110 mg/dL High BEDSIDE GLU 163 Result Comment: MANAGEMENT OF PATIENT CARE PER NURSING PROTOCOL Performed By: #### L501.080 #### [facility] Laboratory Point of Care [address] [place] [address] DISCHARGE INSTRUCTION Observed: 01/21/2018 Status: F Source: RUMNEY 10:12 AM [facility] Medical Records Department [address] [facility] [address] Instructions for Home/Discharge Instructions 01/21/18 1011 MR#: [id number] Acct: [id number] Name: JOSEMICHAEL Rose Rep #: [id number] : 1945 72 From: Fahad Sesay MD [...] 01/21/2018 Status: F Source: CHRISTOPHER 6:56 AM [facility] REPOSITORY TYPE CODE TESTS RESULT OUT OF REFERENCE UNITS RANGE LAB L501.080 70-110 mg/dL High BEDSIDE GLU 172 Result Comment: MANAGEMENT OF PATIENT CARE PER NURSING PROTOCOL Performed By: #### L501.080 #### [facility] Laboratory Point of Care [address] [place] [address] CBC W/DIFF, AUTOMATED Collected: 01/21/2018 Status: F Source: CHRISTOPHER 6:10 AM [facility] REPOSITORY TYPE CODE TESTS RESULT OUT OF [...] Lymph 0.97 Performed By: #### L100.0100 #### [facility] [address] [place], [place], [address] BASIC METABOLIC Collected: 01/21/2018 Status: F Source: CHRISTOPHER PROFILE (BMP) 6:10 AM [facility] REPOSITORY TYPE CODE TESTS RESULT OUT OF [...] GAP 9 Performed By: #### L500.2500 #### [facility]. [place], [place], [address] BEDSIDE GLUCOSE Collected: 01/20/2018 Status: F Source: CHRISTOPHER 10:43 PM [facility] REPOSITORY TYPE CODE TESTS RESULT OUT OF REFERENCE UNITS RANGE LAB L501.080 70-110 mg/dL High BEDSIDE GLU 421 Result Comment: MANAGEMENT OF PATIENT CARE PER NURSING PROTOCOL Performed By: #### L501.080 #### [facility] Laboratory Point of Care [address] [facility] [place] [address] BEDSIDE GLUCOSE Collected: 01/20/2018 Status: F Source: RUMNEY 4:06 PM [facility] REPOSITORY TYPE CODE TESTS RESULT OUT OF REFERENCE UNITS RANGE LAB L501.080 70-110 mg/dL High BEDSIDE GLU 400 Result Comment: MANAGEMENT OF PATIENT CARE PER NURSING PROTOCOL Performed By: #### L501.080 #### [facility] Laboratory Point of Care [address] [place] [address] BEDSIDE GLUCOSE Collected: 01/20/2018 Status: F Source: RUMNEY 11:21 AM [facility] REPOSITORY TYPE CODE TESTS RESULT OUT OF REFERENCE UNITS RANGE LAB L501.080 70-110 mg/dL High alert BEDSIDE GLU 478 Result Comment: Insulin Given MANAGEMENT OF PATIENT CARE PER NURSING PROTOCOL Performed By: #### L501.080 #### [facility] Laboratory Point of Care [address] [place] [address] CONSULTATION Observed: 01/20/2018 Status: F Source: RUMNEY 9:54 AM [facility] REPOSITORY [facility] Medical Records Department [address] [place] [address] Consultation 01/20/18 0943 MR#: [id number] Acct: [id number] Name: MICHAEL GARCIA Rep #: [id number] : 1945 72 From: Nidia Jones MD [...] Patient was sent from HD unit to [place] ED for SOB and tachypnea. chest xray [...] Amiodarone HCl (Cordarone) 200 mg PO DAILY [facility] Last Admin: 01/20/18 08:28 Dose: 200 mg Aspirin (Ecotrin) 325 mg PO DAILY@0800 [facility] Last Admin: 01/20/18 08:30 Dose: 325 mg Atorvastatin Calcium (Lipitor) 40 mg PO QHS [facility] Last Admin: 01/20/18 02:28 Dose: 40 mg Chlorhexidine Gluconate () 1 each TOPICAL DAILY [facility] Last Admin: 01/20/18 07:10 Dose: 1 each Clonidine (Catapres) 0.1 mg PO TID [facility] Last Admin: 01/20/18 07:10 Dose: 0.1 mg Ergocalciferol (Vitamin D) 50,000 unit PO QMONTH [facility] Furosemide (Lasix) 60 mg PO BID@1000,1800 [facility] Last Admin: 01/20/18 08:22 Dose: 60 mg Gabapentin (Neurontin) 300 mg PO QHS [facility] Last Admin: 01/20/18 02:24 Dose: 300 mg Heparin Sodium (Porcine) (Heparin Na) 5,000 unit SC BID [facility] Last Admin: 01/20/18 08:23 Dose: 5,000 u Sodium Chloride () 250 mls @ 15 mls/hr IV .[id number] PRN PRN Reason: SALINE FLUSH Sodium Chloride () 250 mls @ 15 mls/hr IV .[id number] PRN PRN Reason: SALINE FLUSH Insulin Aspart (Novolog Flexpen (Bkc)) 0 units SC ACHS [facility] PRN Reason: Protocol Last Admin: 01/20/18 08:20 Dose: 4 u Insulin Detemir (Levemir (Bkc)) 39 units SC BID [facility] Last Admin: 01/20/18 08:29 Dose: 39 units Magnesium Hydroxide (Milk Of Magnesia) 30 ml PO DAILY PRN PRN PRN Reason: Constipation Metoprolol Succinate (Toprol Xl (Beta Stephania)) 25 mg PO DAILY [facility] Last Admin: 01/20/18 08:36 Dose: 25 mg Pantoprazole Sodium (Protonix) 40 mg PO DAILY [facility] Last Admin: 01/20/18 08:28 Dose: 40 mg Polysaccharide Iron Complex (Ferrex 150) [facility] Sodium Chloride () 5 - 30 ml IV UD PRN PRN Reason: SALINE FLUSH - Past Medical History Past Medical History (Chronic Problems): Chronic Problems (Last Reviewed 01/01/18 @ 18:03 by Josi Hickman, [employer]) Rheumatic mitral insufficiency (Chronic) Valvular heart disease [...] 01/19/18 15:17 Influenza Types A,B Direct FA (BRYEC) - Final Mucosa - Nose Laboratory Tests [...] Will continue to follow Nidia Jones MD [phone] 01/20/18 0954 <Electronically signed by Nidia Jones MD> Date Nidia Jones MD Cosigner Signature (if applicable): Date CC: Roceal Valencia MD; Domingo Jenkins M.D.; Mat Duffy MD Signed CONSULTATION Observed: 01/20/2018 Status: F Source: RUMNEY 6:40 AM [facility] REPOSITORY [facility] Medical Records Department [address] [place] [address] Consultation 01/19/18 1554 MR#: [id number] Acct: [id number] Name: MICHAEL GARCIA Rep #: [id number] : 1945 72 From: Rocael Valencia MD [...] from the outpatient practice, who presented to [facility] on 01/19/2018 secondary to progressive [...] F Source: CHRISTOPHER PROFILE (BMP) 6:20 AM [facility] REPOSITORY Order Comment: REDRAW. PREVIOUS SPECIMEN REJECTED [...] GAP 6 Performed By: #### L500.2500 #### [facility] [address] [place], [address] HEP B SURFACE Collected: 01/20/2018 Status: F Source: RUMNEY ANTIBODIES 6:20 AM [facility] REPOSITORY Order Comment: REDRAW. PREVIOUS SPECIMEN REJECTED DUE TO HEMOLYZED >4+. 01/20/18 0609 Natalia Barragan. TYPE CODE TESTS RESULT OUT OF RANGE REFERENCE UNITS LAB L3100.0528 . Normal Hep B Non Reactive Suzanne AB Result Comment: Non Reactive: Inconsistent with immunity, less than 10 mIU/mL Reactive: Consistent with immunity, greater than 9.9 mIU/mL Performed at: - [facility] [address] [id number] Cottage Attendant: Ayad Joy PhD, Phone: [phone] Performed By: #### L3100.0528 #### [facility] (refer to report for specific site) refer to report for address and phone number CBC W/DIFF, AUTOMATED Collected: 01/20/2018 Status: F Source: CHRISTOPHER 5:10 AM [facility] REPOSITORY TYPE CODE TESTS RESULT OUT OF [...] LYMPHOPENIA NOTED Performed By: #### L100.0100 #### [facility] [address] [place], [place], [address] BEDSIDE GLUCOSE Collected: 01/20/2018 Status: F Source: RUMNEY 2:21 AM [facility] REPOSITORY TYPE CODE TESTS RESULT OUT OF REFERENCE UNITS RANGE LAB L501.080 70-110 mg/dL High BEDSIDE GLU 359 Result Comment: MANAGEMENT OF PATIENT CARE PER NURSING PROTOCOL Performed By: #### L501.080 #### [facility] Laboratory Point of Care [address] [place] [address] M R STAPH AUREUS Collected: 01/19/2018 Status: F Source: CHRISTOPHER DNA BY PCR 6:15 PM [facility] REPOSITORY TYPE CODE TESTS RESULT OUT OF RANGE REFERENCE UNITS LAB L8200.1100 Negative Normal MRSA Negative RESULT Performed By: #### L8200.1000 #### [facility] [address] [place], [address] BLOOD GASES BY CPS Collected: 01/19/2018 Status: F Source: CHRISTOPHER 5:09 PM [facility] REPOSITORY TYPE CODE TESTS RESULT OUT OF [...] ISTAT 89 Performed By: #### L9000.0800 #### [facility] Point of Care [address] [place] [address] EMERGENCY DEPARTMENT Observed: 01/19/2018 Status: F Source: CHRISTOPHER SUMMARY 5:00 PM [facility] REPOSITORY [facility] Medical Records Department [address] [place] [address] Emergency Department Summary 01/19/18 0829 MR#: [id number] Acct: [id number] Name: MICHAEL GARCIA Rep #: [id number] : 1945 72 From: Rashawn Sotelo MD [...] your Primary Care Provider. Call [facility] ([phone]) or report to the closest Emergency Room. Call 911 if necessary. 01/19/18 1700 <Electronically signed by Rashawn Sotelo MD> Date Rashawn Sotelo MD Cosigner Signature (If Indicated): Date CC: Mat Duffy MD BEDSIDE GLUCOSE Collected: 01/19/2018 Status: F Source: CHRISTOPHER 4:30 PM [facility] REPOSITORY TYPE CODE TESTS RESULT OUT OF REFERENCE UNITS RANGE LAB L501.080 70-110 mg/dL High BEDSIDE GLU 238 Result Comment: Dr Guadarrama Followed MANAGEMENT OF PATIENT CARE PER NURSING PROTOCOL Performed By: #### L501.080 #### [facility] Laboratory Point of Care [address] [facility] [place] [address] HISTORY AND PHYSICAL Observed: 01/19/2018 Status: F Source: CHRISTOPHER EXAM 4:01 PM [facility] REPOSITORY [facility] Medical Records Department [address] [place] [address] History and Physical 01/19/18 1441 MR#: [id number] Acct: [id number] Name: MICHAEL GARCIA Rep #: [id number] : 1945 72 From: Irene Wilson MD [...] she was sent to the emergency room. Director Of Student Life has been consulted for urgent hemodialysis today. [...] SCDs. Code Visit Inpatient E AND M: 93991 Init Hosp L3 01/19/18 1601 <Electronically signed by Irene Wilson MD> Date Irene Wilson MD Cosigner Signature: Date (if applicable) CC: Irene Wilson MD; Mat Duffy MD Signed Observed: 01/19/2018 Status: F Source: CHRISTOPHER INFLUENZA A+B (RAPID 3:17 PM [facility]) REPOSITORY FLU A/B Rapid Negative test results should be confirmed by culture. Order Rapid Viral Culture for Influenzae A+B (030842) if clinically indicated. Influenza Ag, Direct Presumptive NEGATIVE for Influenza A/B Antigen (See Note) Performed By: #### M101.0101 #### [facility] [address] [place], [address] BLOOD GASES BY CPS Collected: 01/19/2018 Status: F Source: CHRISTOPHER 12:56 PM [facility] REPOSITORY TYPE CODE TESTS RESULT OUT OF [...] ISTAT 86 Performed By: #### L9000.0800 #### [facility] Point of Care [address] [place], [place] [address] CBC W/DIFF, AUTOMATED Collected: 01/19/2018 Status: F Source: CHRISTOPHER 8:45 AM [facility] REPOSITORY TYPE CODE TESTS RESULT OUT OF [...] LYMPHOPENIA NOTED. Performed By: #### L100.0100 #### [facility] [address] [place], [address] BASIC METABOLIC Collected: 01/19/2018 Status: F Source: CHRISTOPHER PROFILE (BMP) 8:45 AM [facility] REPOSITORY Order Comment: 'TROP' Serial specimen #1, [...] 6 Performed By: #### L500.2500, L501.4010 #### [facility] [place], [address] TROPONIN-I Collected: 01/19/2018 Status: F Source: RUMNEY 8:45 AM [facility] REPOSITORY Order Comment: 'TROP' Serial specimen #1, #2, #3, or #4: 1 TYPE CODE TESTS RESULT OUT OF RANGE REFERENCE UNITS LAB L501.4010 <0.06 ng/mL Normal < 0.02 TROPONIN-I Result Comment: TROPONIN-I EXPECTED VALUES <0.05 NEGATIVE 0.06 - 0.59 AT RISK OF MS > OR = 0.60 SUGGEST MS Performed By: #### L500.2500, L501.4010 #### [facility] [address] [place], [address] CHEST 1 VIEW Observed: 01/19/2018 Status: F Source: RUMNEY (PORTABLE) 8:26 AM [facility] REPOSITORY [facility] Imaging Services [address] [place] [address] Chest 1 View (Portable) MR#: [id number] Acct: [id number] Name: MICHAEL GARCIA Rep #: [id number] : 1945 F 72 From: Regulo Tang MD PCP: Mat Duffy MD Status: REG ER Study: Chest 1 View (Portable) Date of Exam: 01/19/18 Exam# [id number] Ordering Dr: Rashawn Stoelo MD STUDY: X-RAY CHEST REASON FOR EXAM: [...] CC: Rashawn Sotelo MD; Mat Duffy MD Physician [facility]: Signed TYPE AND SCREEN Collected: 01/07/2018 Status: F Source: RUMNEY 12:55 PM [facility] REPOSITORY Order Comment: PRETRANSFUSION HGB = 6.4 HCT = 19.2 PERFORMED AT [facility] CMV NEG?* N Give When? When Ready Irradiated? N Leukodepleted? Y Reason for Type AND Screen/Red Cells: ANEMIA TYPE CODE TESTS RESULT OUT OF RANGE REFERENCE UNITS LAB B10.0800 O Normal BLOOD TYPE GEL POSITIVE LAB B100.4000 Normal Antibody NEGATIVE Screen Performed By: #### B101.7450 #### [facility] [address] [place], [address] Collected: 01/07/2018 Status: F Source: RUMNEY 12:55 PM [facility] REPOSITORY TYPE CODE TESTS RESULT OUT OF REFERENCE UNITS RANGE LAB U100.0000 [id number] TRANSFUSED PRODUCT: T AND S with Crossmatch, Red Cells COUNT: 2 Performed By: #### U100.0000 #### Non-[facility] - refer to report for specific site PROGRESS Observed: 01/05/2018 Status: COMPLETED Source: [place] 2:32 PM [facility] [place] REPOSITORY HNO ID: [id number] Author: Simin Villarreal Service: (none) Author Type: [...] with medications. Will seek help of and [facility] to find meds for [employer]. plan. Concerns: Unable to afford insulin ordered. Buttonhole Maker plan for next outreach: Will follow up as needed Signature Simin Villarreal learning center instructor Roll Coating Machine Operator Internal Medicine [facility] January 05, 2018 CNPTOUTREACH Observed: 01/05/2018 Status: COMPLETED Source: [place] 12:00 AM [facility] REPOSITORY Patient Outreach (INTMWS) MICHAEL GARCIA ([id number]) 1945 F BLD Date Time Provider Department 01/05/18 SIMIN AQUINOWS During your visit today, we recorded the following information about you: Simin Duarte RN 01/23/2018 3:17 PM Signed PRIMARY CARE COORDINATION FOLLOW-UP NOTE Provider Action/FYI Need help with Lantus and Novolog ordered. They have reached [facility] already. Patient identified by name and date of . YES Spoke to patient and spouse Summary: stating that insulin will cost $1000 since they are in [facility] already. Asking for help with medications. Will seek help of and [facility] to find meds for [employer]. plan. Concerns: Unable to afford insulin ordered. Buttonhole Maker plan for next outreach: Will follow up as needed Signature Simin Villarreal RN Ambulatory Roll Coating Machine Operator Internal Medicine [facility] January 05, 2018 Allergies As of Date: 01/05/2018 (No Known Allergies) Date Reviewed: 12/23/2017 Reviewed by: Cindy Limon LPN - Fully Assessed Reason for Visit: Roll Coating Machine Operator Chronic Care [9751] Prescriptions as of 01/05/2018 Sig: HYDRALAZINE 100 [...] VISIT REPORT Observed: 01/01/2018 Status: F Source: [place] 6:15 PM [facility] REPOSITORY Pulmonary Medicine of [address] [place] [address] OFFICE VISIT Date of Service: 01/01/18 MR#: [id number] Acct: [id number] Name: GARCIAMICHAEL Rose Rep #: [id number] : 1945 Provider: Josi Hickman Age/Sex: 72/F Location: [facility] Status: Signed Assessment AND Plan 1. INES [...] Orders: Plan Detail Follow Up 3 Months ([facility]) [facility] f/u: Chief Complaint: Shortness of breath [facility] Comments Details: This is a 72 year old very pleasant f, currently under the care of Mat Duffy, here to follow up after a recent hospitalization at [facility], from November 27, 2017 through [...] DAILY@0800 #30 tab 12/09/17 [Rx Confirmed 01/01/18] [facility] Medical History Rheumatic mitral insufficiency (Chronic) HTN [...] 12/23/2017 Status: COMPLETED Source: [place] 11:37 AM [facility] REPOSITORY HNO ID: [id number] Author: Reny (Parent Partner) Older, JAVIER.JULIO C Service: (none) Author Type: Nurse Practitioner Type: Progress Notes Filed: 12/23/2017 1:08 PM Note Text: CC: Patient presents with: Hospital F/U: was at [facility] for renal failure HPI Michael Garcia is a 72 year old female who presents today for hospital follow-up/TCM encounter. Reason for visit: Admitted from account assistant office for elevated PANCA, concern JORGE on CKD due to vasculitis Which facility: [facility] Date of visit: 12/12/17 to 12/17/17 Diagnosis: JORGE on CKD, requiring dialysis 3 times a week on //; etiology unknown Testing done: kidney biopsy-negative for vasculitis, echocardiogram-EF 65%, Chest p-auz-cvhjpjzmw venous congestion, CBC-anemia Treatment given: Dialysis, 2 [...] Has appointment in a couple weeks with account assistant. Going to dialysis MW. 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 Anemia in chronic kidney disease, unspecified CKD stage - ICD9: 285.21, ICD10: N18.9, D63.1 Continue to monitor CBC. Will be managed by nephrology 3. INES on CPAP - ICD9: 327.23, V46.8, ICD10: G47.33, Z99.89 Unclear why settings were changed. assistant accounting manager will contact [employer] and patient's sawmill manager concerning patient's symptoms 4. Generalized edema - [...] C CNOV Observed: 12/23/2017 Status: COMPLETED Source: [place] 11:20 AM [facility] REPOSITORY Office Visit (INTMWS) MICHAEL GARCIA ([id number]) 1945 F BLD Date Time Provider Department 12/23/17 11:20 AM OLDER, RENY (JULIO C) INTMWS During your visit today, we recorded the following information about you: Temperature Pulse Respiration Blood pressure 98.4 degrees 64/minute 20/minute 136/68 Weight 95.3 kg Reny Older, RODOLFO REYNOLDS 12/23/2017 1:08 PM Signed CC: Patient presents with: Hospital F/U: was at [facility] for renal failure HPI Michael Garcia is a 72 year old female who presents today for hospital follow-up/TCM encounter. 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 Going to dialysis MW. States she is [...] Type 2 diabetes mellitus with renal manifestations ([facility]) 01/19/2016 Dr. Romeo, nephrology - Umbilical hernia without obstruction and without gangrene 01/19/2016 PAST SURGICAL HISTORY Procedure Laterality Date - ACHILLES TENDON SURGERY HX Right 1995 - BREAST BIOPSY CORE Left 2013 benign - [facility] Colonoscopy w/bx [facility] - EGD W/O OR W/BRUSH/WASH 10/27/2017 EGD w/bx [facility] - LAPAROSCOPIC CHOLEYCYSTECTOMY Cholecystectomy, lap - REMOVAL [...] oxygen Dx: Hypoxemia. R09.02. 3 LPM via MT continuous. ergocalciferol, vitamin D2, (VITAMIN D) 50,000 [...] dialysis and labs as ordered Follow-up with account assistant Follow-up with PCP sooner than appointment scheduled in February 2. Anemia in chronic kidney disease, unspecified CKD stage - ICD9: 285.21, ICD10: N18.9, D63.1 Continue to monitor CBC. Will be managed by nephrology 3. INES on CPAP - ICD9: 327.23, V46.8, ICD10: G47.33, Z99.89 Unclear why settings were changed. assistant accounting manager will contact [employer] and patient's sawmill manager concerning patient's symptoms 4. Generalized edema - [...] Visit: Hospital F/U [57] Cmt: was at [facility] for renal failure Primary Visit Diagnosis:Acute renal [...] knee [M17.11] INVALID FOR* Cerebellar hemorrhage, acute ([facility]) [I61.4] INVALID FOR*05/05/2017 S/P craniotomy [Z98.890] INVALID FOR* CREST variant of scleroderma ([facility]) [M34.1] INVALID FOR* CKD (chronic kidney disease) stage 3, GFR 30-59*INVALID FOR* Hypoxemia [R09.02] INVALID FOR* Acute diastolic CHF (congestive heart failure) *INVALID FOR* Anemia in stage 3 chronic kidney disease [N18.3*INVALID FOR* JORGE (acute kidney injury) (HCC) [N17.9] INVALID FOR* Acute renal failure on dialysis ([facility]) [N17.9, Z*INVALID FOR* Other instructions from your [...] 12/23/17 TUAN Observed: 12/23/2017 Status: COMPLETED Source: [place] 12:00 AM [facility] REPOSITORY Patient Outreach (INTMWS) MICHAEL GARCIA ([id number]) 1945 F BLD Date Time Provider Department 12/23/17 SIMIN AQUINO During your visit today, we recorded the following information about you: Simin Duarte RN 07/17/2018 8:32 AM Signed PRIMARY CARE COORDINATION FOLLOW-UP NOTE Provider Action/FYI Patient identified by name and date of . YES Spoke to [facility] Summary: Spoke with pharmacist who said they should hav reached their deductible- that's what cost so much. Her insulins should cost $131 for a 3 month supply each. called back and LMOM that dose of Lasix she has is 40mg and she was told to resume 1/2 tab BID by Director Of Student Life to help her kidneys. She has been taking that and has been voiding. They are hoping she can stop dialysis at some point. Concerns: Buttonhole Maker plan for next outreach: Signature Simin Villarreal RN Ambulatory Roll Coating Machine Operator Internal Medicine [facility] December 24, 2017 Allergies As of Date: 12/23/2017 (No Known Allergies) Date Reviewed: 12/23/2017 Reviewed by: Cindy Robles (Lucila) LUCILA Rahman - Fully Assessed Reason for Visit: Roll Coating Machine Operator Hospital Follow Up [3776] Cmt: [facility] 12/12- Prescriptions as of 12/23/2017 Sig: [...] (HCC) [N17.9, Z*INVALID FOR* Encounter Status:Closed by Cinsay, PRODUSER on 07/17/18 BASIC METABOLIC Collected: 12/22/2017 Status: F Source: CHRISTOPHER PROFILE (BMP) 8:54 AM [facility] REPOSITORY TYPE CODE TESTS RESULT OUT OF [...] GAP 10 Performed By: #### L500.2500 #### [facility] [address] [place], [address] PROGRESS Observed: 12/19/2017 Status: COMPLETED Source: [place] 5:17 PM [facility] REPOSITORY HNO ID: [id number] Author: Simin Duarte [facility] Service: (none) Author Type: Registered Nurse Type: Progress Notes Filed: 01/15/2018 8:41 AM Note Text: TRANSITION CARE MANAGEMENT (TCM) INITIAL CONTACT Provider Action/FYI: Pt having dialysis MWF 7-11am. On O2 @ 3.5L NC. Eating well, no complaints. Initial contact with patient post discharge, spoke to spouse. Patient identified by name and . SUMMARY: -Pt discharged from [facility] on 12/17/17. -Follow up appointment on [...] ATN The patient presented from her outpatient account assistant with a positive PANCA, concern for JORGE [...] was stopped. The etiology of the patient's JOGRE on CKD is still unclear, possibly due to ATN from recent acute illness with paroxysmal Afib with RVR. The patient has scheduled follow-up with nephrology as outpatient, will continued with HD MWF in [place]. She is to avoid NSAIDs/ IV contrast/nephrotoxic [...] right heart catheterization with the patient's outpatient sawmill manager. She was discharged on her home O2 [...] ? PROGRESS Observed: 12/19/2017 Status: COMPLETED Source: [place] 5:17 PM [facility] REPOSITORY O ID: [id number] Author: Simin Villarreal Service: (none) Author Type: Registered Nurse Type: Progress Notes Filed: 01/15/2018 8:41 AM Note Text: Pt contacted and going to dialysis. TUAN Observed: 12/19/2017 Status: COMPLETED Source: [place] 12:00 AM [facility] REPOSITORY Patient Outreach (INTMWS) MICHAEL GARCIA ([id number]) 1945 F BLD Date Time Provider Department [...] name and . SUMMARY: -Pt discharged from [facility] on 12/17/17. -Follow up appointment on 12/23/17 w/ Reny Older COMPUTER FORENSICS INVESTIGATOR. -Medication review done yes. -Admitted for: Renal failure CONCERNS: No complaints. BSs running 167. Checking BSs TID, occasionally over 200. Doing correction at mealtime. Using O2 @ 3.5L/NC with O2 Sat running 97%. NEW MEDICATIONS: None MEDS HELD/DISCONTINUED: As listed BRIEF HOSPITAL COURSE: ? JORGE on CKD requiring HD, unclear etiology, likely 2/2 ATN The patient presented from her outpatient account assistant with a positive PANCA, concern for JORGE [...] nephrology as outpatient, will continued with HD [facility] in [place]. She is to avoid NSAIDs/ IV contrast/nephrotoxic [...] right heart catheterization with the patient's outpatient sawmill manager. 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 [3610] Cmt: [facility] 12/12-12/17 Reason For Visit History Recorded [...] ALLIED HEALTH Observed: 12/17/2017 Status: COMPLETED Source: [place] 4:14 PM CLINIC OTHER CAMPUS REPOSITORY HNO ID: [id number] Author: Barbara AnguianoRn) ELI Ryan Service: Home Care Services Author Type: Registered Nurse Type: Allied Health Filed: 12/17/2017 4:47 PM Note Text: SIDE SEAM MACHINE OPERATOR NOTE SERVICE DATE: 12/17/2017 SERVICE TIME: 4:43 PM Discharge: Aware of Discharge home today Physician order placed for Home Care Services Home Care Agency: [facility] [place] - active Start of care date: 24-48 hours Supplies ordered: n/a Patient/Family agree to discharge plan: yes SIGNATURE: Barbara Ryan RN PATIENT NAME: Michael Garcia DATE: December 17, 2017 TIME: 4:43 PM SIDE SEAM MACHINE OPERATOR NOTE ALLIED HEALTH Observed: 12/17/2017 Status: COMPLETED Source: [place] 3:55 PM [facility] OTHER [place] REPOSITORY HNO ID: [id number] Author: Danette AnguianoRn) ELI Cohen Service: Home Care Services Author Type: Registered Nurse Type: Allied Health Filed: 12/17/2017 3:57 PM Note Text: SIDE SEAM MACHINE OPERATOR NOTE SERVICE DATE: 12/17/2017 SERVICE TIME: 3:56 PM Patient Choice: Spoke with patient and family at bedside Discussed home health care services. Patient given a choice - chose Continue with services through [facility] [place]. Will send referral via [email or web address]. Signed [facility] order obtained. Thank you SIGNATURE: Danette Cohen RN PATIENT NAME: Michael Garcia DATE: December 17, 2017 TIME: 3:55 PM GLUCOSE METER Collected: 12/17/2017 Status: F Source: [facility] 3:33 PM HEALTH SYSTEM REPOSITORY TYPE CODE TESTS RESULT OUT OF REFERENCE UNITS RANGE LAB GLUBL(LOINC 70-99 mg/dL ) High Glucose Meter 203 Result Comment: RN NOTIFIED Performed By: #### GLMET #### [place] [address] CASE MANAGEM Observed: 12/17/2017 Status: COMPLETED Source: [place] 3:17 PM CLINIC OTHER [place] REPOSITORY HNO ID: [id number] Author: Liv AnguianoRn) ELI Fuller Service: Care Management Author Type: Registered Nurse Type: Care Mgt Progress Note Filed: 12/17/2017 3:19 PM Note Text: CARE MANAGEMENT DISCHARGE NOTE SERVICE DATE: 12/17/2017 SERVICE TIME: 1315 LOS: 5 days Admission Date: 12/12/2017 DISCHARGE ARRANGEMENT (list agency and phone number) Home care Provider: [facility] Care Phone: CAREGIVER ASSESSMENT: Caregiver is ready, willing and able to meet the patient's needs as recommended by the inter-professional team? Yes Patient's transition needs and plan for meeting these needs: yes Does the patient have an acute stroke diagnosis, or has the patient had a stroke during this admission? No HANDOFF COMMUNICATION: Pt going home with [facility]. Pt is active with [facility] [place]. VNS Coordinator notified. TRANSPORTATION ARRANGEMENTS: Car Family here to transport home. They have portable O2 for transport. ADDITIONAL CONTACT RESOURCES: SIGNATURE: Liv Fuller RN PATIENT NAME: Michael Garcia DATE: December 17, 2017 TIME: 3:17 PM PAGER/CONTACT #: [phone] GLUCOSE METER Collected: 12/17/2017 Status: F Source: [facility] 12:11 PM HEALTH SYSTEM REPOSITORY TYPE CODE TESTS RESULT OUT OF REFERENCE UNITS RANGE LAB GLUBL(LOINC 70-99 mg/dL ) High Glucose Meter 170 Result Comment: RN NOTIFIED Performed By: #### GLMET #### [place] [address] NURSING PROG Observed: 12/17/2017 Status: COMPLETED Source: [place] 11:56 AM CLINIC OTHER CAMPUS REPOSITORY HNO ID: [id number] Author: Manju AnguianoRn) ELI Quiroga Service: Dialysis Author Type: Registered Nurse Type: Nursing Progress Note Filed: 12/17/2017 11:56 AM Note Text: HEMODIALYSIS TX COMPLETED PAULA WELL STABLE FLUID BALANCE - 1000 ML OFF SEE FLOW SHEET FOR DETAILS CASE MANAGEM Observed: 12/17/2017 Status: COMPLETED Source: [place] 10:31 AM [facility] OTHER CAMPUS REPOSITORY HNO ID: [id number] Author: Liv AnguianoRn) ELI Fuller Service: Care Management Author Type: Registered Nurse Type: Care Mgt Progress Note Filed: 12/17/2017 10:34 AM Note Text: CARE MANAGEMENT PROGRESS NOTE SERVICE DATE: 12/17/2017 SERVICE TIME: 1032 LOS: 5 days Chart reviewed. PT saw and recommending home PT. C tasked and following. Pt has home O2. She wears 3.5 Liters NC. Has multiple DME. Plan home with [facility]. SIGNATURE: Liv Fuller RN PATIENT NAME: Michael Garcia DATE: December 17, 2017 TIME: 10:32 AM PAGER/CONTACT #: [phone] THERAPY NT Observed: 12/17/2017 Status: COMPLETED Source: [place] 8:45 AM [facility] REPOSITORY HNO ID: [id number] Author: Shraddha AnguianoOtr/L) Sylvester Service: Occupational Therapy Author Type: Occupational Therapist Type: Therapy (PT/OT/Speech/Resp) Filed: 12/17/2017 8:46 AM Note Text: OCCUPATIONAL THERAPY MISSED VISIT SERVICE DATE: 12/17/2017 SERVICE TIME: 08 to 0845 ROOM: [place] [address] Attempted Evaluation. Patient not seen due to Test/Procedure. Patient at dialysis, will continue to follow as able and appropriate. SIGNATURE: Shraddha Phan OTR/L PATIENT NAME: Michael Garcia DATE: December 17, 2017 TIME: 8:46 AM PAGER/CONTACT #: [phone] PROGRESS Observed: 12/17/2017 Status: COMPLETED Source: [place] 7:18 AM [facility] REPOSITORY HNO ID: [id number] Author: Portillo Romeo Service: Nephrology Author Type: [...] at 12/16/17 1646 fluticasone 50 mcg/actuation 1 Deposit (FLONASE) 1 Deposit EACH NOSTRIL DAILY Umu (Julio C) JULIO C Rios 1 Deposit at 12/16/17 0842 pill splitter (patient-specific) 1 [...] see her at the kidney center in [place] ([facility]). We will continue to monitor for renal recovery there. The current medication list was reviewed. All medications are appropriately dosed for the current creatinine clearance. 2. Anemia. Continue TEZ with HD. 3. HTN. BP is acceptable. Continue current BP meds. 4. T2DM. Glycemic control per medicine service. Please do not hesitate to contact me at [phone] if there is any question or concern. Matilde Hayward MD (Portillo Romeo) CNDS Observed: 12/17/2017 Status: COMPLETED Source: [place] 7:06 AM [facility] OTHER CAMPUS REPOSITORY O ID: [id number] Author: Vani Hodge Service: General Internal Medicine Author Type: Physician Type: Discharge Summaries Filed: 12/18/2017 10:07 PM Note Text: [facility] DISCHARGE SUMMARY Patient: Michael Garcia : 1945 Date of Admission: 12/12/2017 Date of Discharge: 12/17/2017 Attending at Discharge: Dr Vani Hodge Discharged from: [facility] Medicine Inpatient Service Disposition to: Home with home health care Condition at Discharge: Stable Principal Diagnosis: JORGE on CKD requiring dialysis Secondary Diagnoses: Problem List Noted Noted By Resolved Resolved By JORGE (acute kidney injury) ([facility]) 12/12/2017 Noman (Res) Chandrika No Anemia in stage 3 chronic kidney disease 11/12/2017 Mat Duffy No Acute diastolic CHF (congestive heart failure) (HCC) 08/09/2017 Mat Duffy No Hypoxemia 06/19/2017 Mat Duffy No S/P craniotomy 04/04/2016 Mat Duffy No 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 - fluticasone 50 mcg/actuation 1 Deposit (FLONASE) Auto DC at discharge. - sodium [...] CKD requiring dialysis who now presents from account assistant office with elevated P-ANCA on labwork. Vitals: [...] ATN The patient presented from her outpatient account assistant with a positive PANCA, concern for JORGE [...] nephrology as outpatient, will continued with HD [facility] in [place]. She is to avoid NSAIDs/ IV contrast/nephrotoxic [...] right heart catheterization with the patient's outpatient sawmill manager. She was discharged on her home O2 [...] to 2 weeks. Follow up with OP sawmill manager in 2-4 weeks. Follow up with account assistant in 2 weeks. Disease Education provided to patient and family. Home health care: established with [facility] Discussed with the attending upon discharge as listed above, and they agree with the plan. Lori Mcgill DO December 17, 2017 7:16 PM Internal Medicine, PGY1 Pager: [phone] [facility] Evaluated Independently on 12/17/2017 Agree with the [...] up. Attestation signed by Vani Hodge MD [facility] [place] Attending December 18, 2017 10:05 PM GLUCOSE METER Collected: 12/17/2017 Status: F Source: [facility] 6:32 AM HEALTH SYSTEM REPOSITORY TYPE CODE TESTS RESULT OUT OF REFERENCE UNITS RANGE LAB GLUBL(LOINC 70-99 mg/dL ) High Glucose Meter 207 Result Comment: RN NOTIFIED Performed By: #### GLMET #### [place] [address] HEMOGRAM Collected: 12/17/2017 Status: F Source: [facility] 4:30 AM HEALTH SYSTEM REPOSITORY TYPE [...] MPV 9.9 Performed By: #### CBC1 #### [facility] [address] [place] [address] BASIC PANEL Collected: 12/17/2017 Status: F Source: [facility] 4:30 AM HEALTH SYSTEM REPOSITORY TYPE [...] Gap 10 Performed By: #### P8 #### [place] [address] MDRD GFR Collected: 12/17/2017 Status: F Source: [facility] 4:30 AM HEALTH SYSTEM REPOSITORY TYPE CODE TESTS RESULT OUT OF RANGE REFERENCE UNITS LAB GFRFN(LOINC >60mL/min/1.73m ) 2 eGFR 15.85 Result Comment: If the patient is , multiply the result by 1.210. Performed By: #### GFR #### [facility] [address] [place] [address] GLUCOSE METER Collected: 12/16/2017 Status: F Source: [facility] 8:36 PM HEALTH SYSTEM REPOSITORY TYPE CODE TESTS RESULT OUT OF REFERENCE UNITS RANGE LAB GLUBL(LOINC 70-99 mg/dL ) High Glucose Meter 270 Result Comment: RN NOTIFIED Performed By: #### GLMET #### [place] [address] GLUCOSE METER Collected: 12/16/2017 Status: F Source: [facility] 4:07 PM HEALTH SYSTEM REPOSITORY TYPE CODE TESTS RESULT OUT OF REFERENCE UNITS RANGE LAB GLUBL(LOINC 70-99 mg/dL ) High Glucose Meter 193 Result Comment: RN NOTIFIED Performed By: #### GLMET #### [facility] [address] [place] [id number] NURSING PROG Observed: 12/16/2017 Status: COMPLETED Source: [facility] 4:05 PM [facility] OTHER [place] REPOSITORY HNO ID: [id number] Author: Laura (Rn) ELI Castillo Service: (none) Author Type: Registered Nurse Type: Nursing Progress Note Filed: 12/16/2017 4:06 PM Note Text: Spoke with Dr. Mcgill from [facility] to request about pain medication per pt request. Dr. Mcgill says orders will be put in. BRIEF OP NOT Observed: 12/16/2017 Status: COMPLETED Source: [facility] 3:54 PM [facility] REPOSITORY HNO ID: [id number] Author: Maurizio Winkler Service: Vascular Surgery Author Type: Physician Type: Brief Op Note Filed: 12/16/2017 3:55 PM Note Text: BRIEF OPERATIVE / PROCEDURE NOTE LOG ID: [id number] Surgery/Procedure Date: 12/16/2017 Incision/Procedure Start Time: Incision Close/Procedure End Time: Surgeon(s)/Proceduralist(s) and Scientific Systems Analyst(s): Surgeon(s) and Role: * Maurizio Winkler - [...] TUNN DIALYSIS/SAME Observed: 12/16/2017 Status: F Source: [facility] ACCESS [id number] 3:45 PM HEALTH SYSTEM REPOSITORY Performed at [facility] APPROVED BY: MAURIZIO WINKLER MD EXAM [...] NURSING PROG Observed: 12/16/2017 Status: COMPLETED Source: [place] 12:33 PM [facility] REPOSITORY HNO ID: [id number] Author: Manju AnguianoRn) ELI Quiroga Service: Dialysis Author Type: Registered Nurse Type: Nursing Progress Note Filed: 12/16/2017 12:36 PM Note Text: Received pt in dialysis LIC Diaysis catheter not workind Dr Jenkins notified Order placed for IR to change catheter Will monitor closely NURSING PROG Observed: 12/16/2017 Status: COMPLETED Source: [facility] 11:51 AM [facility] REPOSITORY HNO ID: [id number] Author: Janeth AnguianoRn) ELI Pfeiffer Service: Cardiovascular Testing Author Type: Registered Nurse Type: Nursing Progress Note Filed: 12/16/2017 11:53 AM Note Text: Definity IVP given for Image enhancement per protocol. No signs of infiltration, tolerated well GLUCOSE METER Collected: 12/16/2017 Status: F Source: [facility] 10:46 AM HEALTH SYSTEM REPOSITORY TYPE CODE TESTS RESULT OUT OF REFERENCE UNITS RANGE LAB GLUBL(LOINC 70-99 mg/dL ) High Glucose Meter 283 Result Comment: RN NOTIFIED Performed By: #### GLMET #### [facility] [address] [place] [address] PROGRESS Observed: 12/16/2017 Status: COMPLETED Source: [facility] 10:13 AM CLINIC OTHER CAMPUS REPOSITORY HNO ID: [id number] Author: Domingo Jenkins Service: Nephrology Author Type: [...] OF PRESENT ILLNESS: Patient has been at [facility] since Friday night. The Patient reports [...] SUBCUTANEOUS w MEALS fluticasone 50 mcg/actuation 1 Deposit (FLONASE) 1 Deposit EACH NOSTRIL DAILY pill splitter (patient-specific) 1 [...] not available but this is unlikely to private branch exchange operator pANCA was positive but no clinical manifestations. Catheter malfunctioned today so could not dialyze. Plan Catheter exchange today HD tomorrow and as per schedule MWF. Looking at the creatinine values, she may recover soon. No plans for TPE Can dc tomorrow once HD done She already has an outpatient spot at [facility] Observed: 12/16/2017 Status: COMPLETED Source: [facility] 8:51 AM CLINIC OTHER CAMPUS REPOSITORY HNO ID: [id number] Author: Roxann Arango) ELI Harry Service: Home Care Services Author Type: Registered Nurse Type: Allied Health Filed: 12/16/2017 8:52 AM Note Text: SIDE SEAM MACHINE OPERATOR NOTE SERVICE DATE: 12/16/2017 SERVICE TIME: 8:51 AM Referral: Home Care referral received by: RO Patient is active with [facility] agency for skilled care Will continue to follow for physician orders SIGNATURE: Roxann Harry RN PATIENT NAME: Michael Garcia DATE: December 16, 2017 TIME: 8:51 AM PROGRESS Observed: 12/16/2017 Status: COMPLETED Source: [facility] 8:49 AM CLINIC OTHER CAMPUS REPOSITORY HNO ID: [id number] Author: Vani Hodge Service: General Internal Medicine [...] requiring HD admitted currently per recommendation from account assistant for evaluation and management of p ANCA [...] SUBCUTANEOUS w MEALS fluticasone 50 mcg/actuation 1 Deposit (FLONASE) 1 Deposit EACH NOSTRIL DAILY pill splitter (patient-specific) 1 [...] December 16, 2017 TIME: 8:49 AM Pager: [phone] Evaluated independently Agree with the above notes by which reflects my input with the following additions Awaiting for renal biopsy and echo Attestation signed by Vani Hodge MD [facility] [place] Attending December 16, 2017 9:51 PM NURSING PROG Observed: 12/16/2017 Status: COMPLETED Source: [facility] 8:45 AM [facility] REPOSITORY HNO ID: [id number] Author: Laura AnguianoRn) ELI Castillo Service: (none) Author Type: Registered Nurse Type: Nursing Progress Note Filed: 12/16/2017 8:46 AM Note Text: Continuous pulse ox discontinued per pulm orders. PROGRESS Observed: 12/16/2017 Status: COMPLETED Source: [facility] 8:13 AM [facility] REPOSITORY HNO ID: [id number] Author: Umu Rios CNP Service: Pulmonary Disease Author Type: Nurse Practitioner Type: Progress Notes Filed: 12/16/2017 8:34 AM Note Text: Attestation signed by Raimundo Wall at 12/16/2017 9:04 AM [facility] STAFF PHYSICIAN NOTE OF PERSONAL INVOLVEMENT IN [...] (Res) Jose Alfredo fluticasone 50 mcg/actuation 1 Deposit (FLONASE) 1 Deposit EACH NOSTRIL DAILY Umu Hyatt) JULIO C Rios 1 Deposit at 12/15/17 0855 pill splitter (patient-specific) 1 [...] LABS/MICRO DATA/RADIOLOGY FILMS NO MICROBIOLOGY DATA BNP 64424 PROCALCITONIN 0.29 BMP: Glucose (mg/dL) Date Value [...] OP follow up with Dr. Valencia in [place]. May eventually need RHC. 5) Acute on [...] to follow up with Dr. Valencia in [place] as outlined above. SIGNATURE: Umu Rios CNP PATIENT NAME: Michael Garcia DATE: December 16, 2017 TIME: 8:13 AM PAGER/CONTACT #: [phone] GLUCOSE METER Collected: 12/16/2017 Status: F Source: [facility] 6:39 AM HEALTH SYSTEM REPOSITORY TYPE CODE TESTS RESULT OUT OF REFERENCE UNITS RANGE LAB GLUBL(LOINC 70-99 mg/dL ) High Glucose Meter 250 Result Comment: RN NOTIFIED Performed By: #### GLMET #### [place] [address] HEMOGRAM Collected: 12/16/2017 Status: F Source: [facility] 3:25 AM HEALTH SYSTEM REPOSITORY TYPE [...] MPV 9.7 Performed By: #### CBC1 #### [place] [address] BASIC PANEL Collected: 12/16/2017 Status: F Source: [facility] 3:25 AM HEALTH SYSTEM REPOSITORY TYPE [...] Gap 10 Performed By: #### P8 #### [place] [address] MDRD GFR Collected: 12/16/2017 Status: F Source: [facility] 3:25 AM HEALTH SYSTEM REPOSITORY TYPE CODE TESTS RESULT OUT OF RANGE REFERENCE UNITS LAB GFRFN(LOINC >60mL/min/1.73m ) 2 eGFR 15.91 Result Comment: If the patient is , multiply the result by 1.210. Performed By: #### GFR #### [facility] [address] [place], [place] [address] GLUCOSE METER Collected: 12/15/2017 Status: F Source: [facility] 8:24 PM HEALTH SYSTEM REPOSITORY TYPE CODE TESTS RESULT OUT OF REFERENCE UNITS RANGE LAB GLUBL(LOINC 70-99 mg/dL ) High Glucose Meter 223 Result Comment: RN NOTIFIED Performed By: #### GLMET #### [facility] [address] [place], [place] [address] GLUCOSE METER Collected: 12/15/2017 Status: F Source: [facility] 3:41 PM HEALTH SYSTEM REPOSITORY TYPE CODE TESTS RESULT OUT OF REFERENCE UNITS RANGE LAB GLUBL(LOINC 70-99 mg/dL ) High Glucose Meter 152 Result Comment: RN NOTIFIED Performed By: #### GLMET #### [facility] [address] [place], [place] [address] CASE MGT INIT Observed: 12/15/2017 Status: COMPLETED Source: [facility] 3:14 PM CLINIC OTHER CAMPUS REPOSITORY HNO ID: [id number] Author: Liv (Rn) ELI Fuller Service: Care Management Author Type: Registered Nurse Type: Care Mgt Initial Assessment Filed: 12/15/2017 3:29 PM Note Text: CARE MANAGEMENT: ASSESSMENT AND DISCHARGE PLAN SERVICE DATE: 12/15/2017 SERVICE TIME: 1515 PRIMARY CARE PHYSICIAN: Mat Duffy MD ADMISSION STATUS: Inpatient Needs Prior to Discharge: To Be Determined;OT/PT Evaluation;Pharmacy Bedside Delivery 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 Long Term Equipment Prior to Admission: Walker, home O2 3.5 liters nc , rollator, transport chair, shower seat, grab bars Has the Patient Been in a Long Term Facility in the Past 30 days? No [...] 0 I feel financially burdened by my bcg-te-owyxcn expenses for my prescription medication: Disagree completely [...] a dialysis pt. [facility] in [place] Every MWF. Chair time 0600. SIGNATURE: Liv Fuller RN PATIENT NAME: Michael Garcia DATE: December 15, 2017 TIME: 3:15 PM PAGER/CONTACT #: [phone] PLAN OF CARE Observed: 12/15/2017 Status: COMPLETED Source: [facility] 3:03 PM CLINIC OTHER CAMPUS REPOSITORY O ID: [id number] Author: Belinda Rice (Broke Handler) Service: Pharmacy Author Type: Pharmacist Type: Plan [...] Allergies: ALLERGIES No Known Allergies Preferred Pharmacy: [facility] ([phone]) or [facility] ([phone]) Current [facility] Medications: Prior to Admission medications as of [...] needed for Wheezing/Shortness of Breath. Padma Bangura (Vehicle Window Tinter) December 15, 2017 3:03 PM I discussed medication history with associate dean of students. I removed a duplicate vitamin D order from the patient's medication list. BELINDA RICE, PHARMACIST 4:[address] NEEDLE BIOPSY Observed: 12/15/2017 Status: F Source: [facility] RENAL 2:48 PM HEALTH SYSTEM REPOSITORY Performed at [facility] APPROVED BY: Manuel Mcgee MD EXAM [...] with administration of agent, ends when continuous ijyj-we-syli time ends): 20 minutes. Patient monitoring: I personally supervised and directed an independent trained observer who assisted in monitoring the patient?s level of consciousness and physiological status throughout the procedure. Medication: 100 micrograms of fentanyl IV; 2 milligrams of Versed IV IMPRESSION: Technically successful CT-guided random biopsy of left kidney. BRIEF OP NOT Observed: 12/15/2017 Status: COMPLETED Source: [facility] 2:27 PM [facility] REPOSITORY HNO ID: [id number] Author: Manuel Mcgee Service: (none) Author Type: Physician Type: Brief Op Note Filed: 12/15/2017 2:28 PM Note Text: INTERVENTIONAL RADIOLOGY POST PROCEDURE NOTE DATE: 12/15/17 NAME: Michael Garcia LOG ID: [id number] Pre-Procedure Diagnosis: Renal failure Post Procedure Diagnosis: Same. Medical Claims Specialist: Dr. 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 0 ml Specimen: Sent for pathology. Complications: None. Full report with procedural details to follow and will become available under Imaging Reports. Please contact for any questions or concerns. HISTORY PHYSICAL Observed: 12/15/2017 Status: COMPLETED Source: [facility] 1:42 PM [facility] REPOSITORY HNO ID: [id number] Author: Manuel Mcgee Service: (none) Author Type: [...] CHEST B-SCAN Observed: 12/15/2017 Status: F Source: [facility] 1:40 PM HEALTH SYSTEM REPOSITORY Performed at [facility] APPROVED BY: Manuel Mcgee MD EXAM TITLE: ULTRASOUND LEFT CHEST DATE: 12/15/2017 13:32 COMPARISON: None. CLINICAL INDICATION/HISTORY: Left pleural effusion TECHNIQUE: Ultrasound scanning of the left thorax was performed. FINDINGS: No left pleural effusion was identified. IMPRESSION: No left pleural effusion is identified. A left thoracentesis was not performed. GUILLAUME BY IFA SCREEN Collected: 12/15/2017 Status: F Source: [facility] 12:15 PM HEALTH SYSTEM REPOSITORY TYPE CODE TESTS RESULT OUT OF REFERENCE UNITS RANGE LAB ANAX(LOINC) GUILLAUME by IFA SEE BELOW Screen Result Comment: GUILLAUME Positive AB NEGAT Normal range : negative at <1:80 serum dilution. GUILLAUME Titer 1:640 AB NEGAT GUILLAUME Pattern Homogeneous Performing Laboratory: [facility] [address] [place] [address] Performed By: #### ANAX #### [facility] [address] [place] [address] GLUCOSE METER Collected: 12/15/2017 Status: F Source: [facility] 10:48 AM HEALTH SYSTEM REPOSITORY TYPE CODE TESTS RESULT OUT OF REFERENCE UNITS RANGE LAB GLUBL(LOINC 70-99 mg/dL ) High Glucose Meter 175 Result Comment: RN NOTIFIED Performed By: #### GLMET #### [place] [address] PROGRESS Observed: 12/15/2017 Status: COMPLETED Source: [facility] 10:36 AM CLINIC OTHER CAMPUS REPOSITORY HNO ID: [id number] Author: Vani Hodge Service: Nephrology Author Type: [...] OF PRESENT ILLNESS: Patient has been at [facility] since Friday night. Patient reports that she was at a hospital in [place] being treated for pneumonia and UTI and was receiving HD at that time for JORGE. The pt. was instructed to come of [facility] for kidney biopsy. Pt. Will undergo [...] INTRAVENOUS PRN(NO DISPENSE) fluticasone 50 mcg/actuation 1 Deposit (FLONASE) 1 Deposit EACH NOSTRIL DAILY loratadine 10 mg tab(s) [...] #: PROGRESS Observed: 12/15/2017 Status: COMPLETED Source: [facility] 10:22 AM CLINIC OTHER CAMPUS REPOSITORY HNO ID: [id number] Author: Vani Hodge Service: General Internal Medicine [...] requiring HD admitted currently per recommendation from account assistant for evaluation and management of p ANCA [...] INTRAVENOUS PRN(NO DISPENSE) fluticasone 50 mcg/actuation 1 Deposit (FLONASE) 1 Deposit EACH NOSTRIL DAILY loratadine 10 mg tab(s) [...] Amiodarone 2/2 pulm HTN - records from [place] reviewed, not on anticoagulation 2/2 anemia and hx of intra cerebral bleed ? CREST Constipation - on senna ? PAD - Continue ASA, Statin ? INES - CPAP at night ? Nasal pressure ulcer (POA) 2/2 cpap mask ? DVT PPX - Lovenox renal dose SIGNATURE: Jordyn Veliz MD PATIENT NAME: Michael Garcia DATE: December 15, 2017 TIME: 8:26 AM Pager: [phone] Transferred to my service Chart reviewed Evaluated independently Discussed with Dr. Veliz and agree with above notes which reflect my input with following additions Awaiting for renal biopsy Discussed with patient Attestation signed by Vani Hodge MD [facility] [place] Attending December 15, 2017 9:46 PM THERAPY NT Observed: 12/15/2017 Status: COMPLETED Source: [facility] 8:50 AM CLINIC OTHER CAMPUS REPOSITORY HNO ID: [id number] Author: Frances (Pt) Wang PT Service: Physical Therapy Author Type: Physical Therapist Type: Therapy (PT/OT/Speech/Resp) Filed: 12/15/2017 8:56 AM Note Text: Physical Therapy Evaluation SERVICE DATE: 12/15/2017 SERVICE TIME: 804 to 834 ROOM: [id number] Recommended Discharge Disposition: Home PT Anticipated Discharge [...] gait and mobility-other Interventions Provided: Evaluation;Gait Training (57082) $ Evaluation-Moderate (39871) Billed Units: 1 unit Gait Training (45862) Treatment Minutes: 8 1 unit Skilled Intervention(s): [...] verbal cues for proper hand placement during hja-yv-yvzsz transfers Patient set up in chair with [...] Problems Diagnosis - JORGE (acute kidney injury) ([facility]) PAST MEDICAL HISTORY Diagnosis Date - Cerebellar hemorrhage, acute (HCC) 04/04/2016 - CKD (chronic kidney disease) stage 3, GFR 30-59 ml/min 04/04/2016 - CREST variant of scleroderma (HCC) 04/04/2016 - Diabetic peripheral neuropathy associated with type 2 diabetes mellitus ([facility]) 01/19/2016 - Essential hypertension with goal blood [...] Type 2 diabetes mellitus with renal manifestations ([facility]) 01/19/2016 Dr. Romeo, nephrology - Umbilical hernia without obstruction and without gangrene 01/19/2016 PAST SURGICAL HISTORY Procedure Laterality Date - ACHILLES TENDON SURGERY HX Right 1995 - BREAST BIOPSY CORE Left 2013 benign - [facility] Colonoscopy w/bx [facility] - EGD W/O OR W/BRUSH/WASH 10/27/2017 EGD w/bx [facility] - LAPAROSCOPIC CHOLEYCYSTECTOMY Cholecystectomy, lap - REMOVAL OF TONSILS,<14 Y/O 1974 Tonsillectomy - REPAIR ROTATOR CUFF,ACUTE Right 1986 - REVISE MEDIAN N/CARPAL TUNNEL SURG Right 1989 - REVISE ULNAR NERVE AT ELBOW Right 1989 Patient Report: Lying on her back in bed. States her stomach and chest are uncomfortable. Rates 7/10 discomfort. Agreeable to PT Home Environment Patient Lives With: Significant Other ([facility]) Assistance Available: 24 Hour Entry To Home: [...] 15, 2017 TIME: 8:50 AM PAGER/CONTACT #: [phone] PROGRESS Observed: 12/15/2017 Status: COMPLETED Source: [place] 8:16 AM [facility] OTHER CAMPUS REPOSITORY HNO ID: [id number] Author: Teresa Palacio CNP Service: Pulmonary Disease Author Type: Nurse Practitioner Type: Progress Notes Filed: 12/15/2017 8:36 AM Note Text: Attestation signed by Raimundo Wall at 12/15/2017 9:18 AM [facility] STAFF PHYSICIAN NOTE OF PERSONAL INVOLVEMENT IN [...] of SERVICE: 9:16 AM PULMONARY/CCM PROGRESS NOTE [facility] SERVICE DATE: December 15, 2017 SERVICE TIME: 8:16 AM Subjective Denies shortness of breath at rest, but does admit to some [place] Denies cough or phlegm production Still complaining of sinus draining and post nasal drip Denies chest pain, fevers/chills/sweats, nausea/vomiting/diarrhea Wears 3.5LO2 at home Objective CURRENT MEDICATIONS Current Facility-Administered Medications: fluticasone 50 mcg/actuation 1 Deposit (FLONASE) 1 Deposit EACH NOSTRIL DAILY Umu (Parent Partner) Gabriel, COMPENSATION ADMINISTRATOR 1 Deposit at 12/14/17 1211 loratadine 10 mg tab(s) (CLARITIN) 10 mg ORAL DAILY Umu (Parent Partner) [place], COMPENSATION ADMINISTRATOR 10 mg at 12/14/17 1210 pill splitter [...] LABS/MICRO DATA/RADIOLOGY FILMS NO MICROBIOLOGY DATA BNP 86300 PROCALCITONIN 0.29 BMP: Glucose (mg/dL) Date Value [...] OP follow up with Dr Valencia in [place]. 5) Acute on Chronic Diastolic HF with [...] 15, 2017 TIME: 8:16 AM PAGER/CONTACT #: [phone] GLUCOSE METER Collected: 12/15/2017 Status: F Source: [facility] 6:58 AM HEALTH SYSTEM REPOSITORY TYPE CODE TESTS RESULT OUT OF REFERENCE UNITS RANGE LAB GLUBL(LOINC 70-99 mg/dL ) High Glucose Meter 172 Result Comment: RN NOTIFIED Performed By: #### GLMET #### [facility] [address] [place] [address] HEMOGRAM Collected: 12/15/2017 Status: F Source: [facility] 3:15 AM HEALTH SYSTEM REPOSITORY TYPE [...] MPV 9.6 Performed By: #### CBC1 #### [facility] [address] [place] [id number] BASIC PANEL Collected: 12/15/2017 Status: F Source: [facility] 3:15 AM HEALTH SYSTEM REPOSITORY TYPE [...] Gap 10 Performed By: #### P8 #### [facility] [address] [place] [address] MDRD GFR Collected: 12/15/2017 Status: F Source: [facility] 3:15 AM HEALTH SYSTEM REPOSITORY TYPE CODE TESTS RESULT OUT OF RANGE REFERENCE UNITS LAB GFRFN(LOINC >60mL/min/1.73m ) 2 eGFR 16.98 Result Comment: If the patient is , multiply the result by 1.210. Performed By: #### GFR #### [place] [address] PROTIME Collected: 12/15/2017 Status: F Source: [facility] 3:15 AM HEALTH SYSTEM REPOSITORY TYPE CODE TESTS RESULT OUT OF REFERENCE UNITS RANGE LAB PTI(LOINC) 9.3-11.9 sec Prothrombin Time 10.3 LAB INR(LOINC) INR 0.97 Result Comment: Standard Therapy 2.0-3.0 High Dose 2.5-3.5 Performed By: #### PT #### [place] [address] ACTIVATED PTT Collected: 12/15/2017 Status: F Source: [facility] 3:15 AM HEALTH SYSTEM REPOSITORY TYPE CODE TESTS RESULT OUT OF REFERENCE UNITS RANGE LAB APTT(LOINC 22.0-34.0 sec ) Activated PTT 23.7 Performed By: #### APTT #### [place] [address] LD,TOTAL BLOOD Collected: 12/15/2017 Status: F Source: [facility] 3:10 AM HEALTH SYSTEM REPOSITORY TYPE CODE TESTS RESULT OUT OF RANGE REFERENCE UNITS LAB LDH(LOINC) 84-246 U/L LD,Total 154 Blood Performed By: #### LDH #### [place] [address] TOTAL PROTEIN Collected: 12/15/2017 Status: F Source: [facility] 3:10 AM HEALTH SYSTEM REPOSITORY TYPE CODE TESTS RESULT OUT OF REFERENCE UNITS RANGE LAB TP(LOINC) 6.4-8.2 g/dL Low Total Protein 6.2 Performed By: #### TP #### [address] [address] SURGICAL PATHOLOGY Observed: 12/15/2017 Status: F Source: [place] 12:00 AM [facility] REPOSITORY Specimen #: [id number] Submitting Physician: BIANCA LOBO FINAL DIAGNOSIS Left [place] kidney, biopsy: - Nodular diabetic glomerulosclerosis (46 [...] MD (Electronic Signature) SPECIMEN SUBMITTED A: LEFT [place] KIDNEY, BIOPSY ([id number]) MICROSCOPIC DESCRIPTION Sections are stained with H&E, [...] in glomeruli. Albumin highlights background tissue architecture. [place] and lambda stain equally throughout the tubulointerstitium. [...] in-situ hybridization tests have been determined by [facility]'s [facility] ([facility] in a manner consistent with CLIA requirements. One or more of these tests have not been cleared or approved by the FDA. [facility] is regulated under CLIA as qualified to [...] OF CREST. GROSS DESCRIPTION A. Received in [facility] are multiple segments of cylindrical romeo, soft tissue aggregating 5.0 x 0.1 x 0.1 cm. The specimen is washed in maleimide solution. A portion is frozen and kept frozen for direct immunofluorescence. A portion is submitted for electron microscopy. A portion is submitted in formalin for light microscopy in cassette A2. Gross examination performed at [facility], [facility] 12/15/2017 Date of Report: 12/17/2017 Date of Procedure: 12/15/2017 Date of Receipt: 12/15/2017 Submitted by: BIANCA LOOB Location: Diagnostic interpretation performed at [facility], [facility] [place] [address]. SURGICAL TISSUE EXAM Observed: 12/15/2017 Status: F Source: [facility] 12:00 AM HEALTH SYSTEM REPOSITORY Test performed at [place] [address] NAME: MICHAEL GARCIA REQUESTING: BIANCA LOBO MD FINAL DIAGNOSIS: CORE BIOPSY OF LEFT KIDNEY - THE SPECIMEN IS FORWARDED TO THE [facility] FOR PROCESSING AND EVALUATION. OPERATIVE PROCEDURE: CT guided renal biopsy CLINICAL INFORMATION: Renal failure GROSS DESCRIPTION: Left kidney Received in Timo's fixative labeled CT-guided renal biopsy, left kidney, is a segment of kidney tissue sent to [facility] for processing. KVB:hlm EXTERNAL CONSULT, PATHOLOGIST (Electronic signature on file) Signed out: 12/17/2017 12:35 PRINTED: 12/17/2017 Page 1 of 1 Performed By: #### SURG #### [place] [address] PATHOLOGY MISCELLANEOUS Observed: 12/15/2017 Status: F Source: [facility] 12:00 AM HEALTH SYSTEM REPOSITORY Test performed at [place] [address] NAME: JOSE MICHAEL REQUESTING: BIANCA LOBO MD DIAGNOSIS: Left [place] Kidney Biopsy: See the full outside report from [facility]. SPECIMEN: TISSUE FOR SEND-OUT, Kidney Bx - [facility] EXTERNAL CONSULT, PATHOLOGIST (Electronic signature on file) Signed out: 01/02/2018 14:38 PRINTED: 01/02/2018 Page 1 of 1 Performed By: #### MISC #### [place] [address] GLUCOSE METER Collected: 12/14/2017 Status: F Source: [facility] 7:40 PM HEALTH SYSTEM REPOSITORY TYPE CODE TESTS RESULT OUT OF REFERENCE UNITS RANGE LAB GLUBL(LOINC 70-99 mg/dL ) High Glucose Meter 227 Result Comment: RN NOTIFIED Performed By: #### GLMET #### [place] [address] GLUCOSE METER Collected: 12/14/2017 Status: F Source: [facility] 4:07 PM HEALTH SYSTEM REPOSITORY TYPE CODE TESTS RESULT OUT OF REFERENCE UNITS RANGE LAB GLUBL(LOINC 70-99 mg/dL ) High Glucose Meter 217 Result Comment: RN NOTIFIED Performed By: #### GLMET #### [facility] [address] [place], [place] [address] HEMOGRAM Collected: 12/14/2017 Status: F Source: [facility] 3:08 HEALTH SYSTEM REPOSITORY TYPE CODE [...] MPV 9.8 Performed By: #### CBC1 #### [facility] [address] [place] [address] N-TERMINAL PRO-BNP Collected: 12/14/2017 Status: F Source: [facility] 3:08 HEALTH SYSTEM REPOSITORY TYPE CODE TESTS RESULT OUT OF RANGE REFERENCE UNITS LAB PBNP(LOINC) pg/ml 44367 N-terminal Pro-BNP Result Comment: Acute CHF Rule-in <50 yrs old >= 450 pg/ml >50 yrs old >= 900 pg/ml Abnormal Pro-BNP All patients >=300 pg/ml Performed By: #### PBNP #### [facility] [address] [place] [id number] BASIC PANEL Collected: 12/14/2017 Status: F Source: [facility] 3:08 PM HEALTH SYSTEM REPOSITORY TYPE [...] Gap 10 Performed By: #### P8 #### [place] [address] MDRD GFR Collected: 12/14/2017 Status: F Source: [facility] 3:08 PM HEALTH SYSTEM REPOSITORY TYPE CODE TESTS RESULT OUT OF RANGE REFERENCE UNITS LAB GFRFN(LOINC >60mL/min/1.73m ) 2 eGFR 19.21 Result Comment: If the patient is , multiply the result by 1.210. Performed By: #### GFR #### [place] [address] PROGRESS Observed: 12/14/2017 Status: COMPLETED Source: [facility] 2:15 PM CLINIC OTHER CAMPUS REPOSITORY HNO ID: [id number] Author: Nidia Jones MD Service: Nephrology Author Type: Physician Type: Progress Notes Filed: 12/14/2017 2:18 PM Note Text: CONSULT PROGRESS NOTE NEPHROLOGY SERVICE Following for JORGE on HD No complaints today No nausea No vomiting No SOB No CP MEDICATIONS: Current hospital medications: fluticasone 50 mcg/actuation 1 Deposit (FLONASE) 1 Deposit EACH NOSTRIL DAILY loratadine 10 mg tab(s) [...] to follow ? ? Nidia Jones MD [phone] ? CHEST 2 VIEWS Observed: 12/14/2017 Status: F Source: [facility] 2:07 PM HEALTH SYSTEM REPOSITORY Performed at [facility] APPROVED BY: Kvng Avitia MD EXAMINATION: CHEST RADIOGRAPH (2 VIEW FRONTAL & LATERAL) Clinical History: Chest pain. MQ: [id number] Comparison: 12/13/2017 at 03 15. RESULT: Lines, tubes, and devices: Large bore left internal jugular central catheter with tip in the distal superior vena cava. Overlying supervisor core shop leads. Lungs and pleura: No focal infiltrate or effusion. Some degree of prominent vascularity centrally. Cardiomediastinal silhouette: Cardiomegaly. Other: The patient has had previous resection of the distal right clavicle. IMPRESSION: Cardiomegaly. No pleural effusions. Prominent central vasculature suggesting an element of vascular congestion. LUNG VENTILATION Observed: 12/14/2017 Status: F Source: [facility] 1:59 PM HEALTH SYSTEM REPOSITORY Performed at [facility] APPROVED BY: ALLA SELF MD VENTILATION-PERFUSION [...] NURSING PROG Observed: 12/14/2017 Status: COMPLETED Source: [facility] 12:00 PM CLINIC OTHER CAMPUS REPOSITORY HNO ID: [id number] Author: Nabila (Rn) ELI Cartagena Service: (none) Author Type: Registered Nurse Type: Nursing Progress Note Filed: 12/14/2017 4:15 PM Note Text: Nursing Progress Note Patient Name: Michael Garcia Patient Location: [place] [address]/[facility]* Pt c/o 7/10 heavy chest pain. Spoke with Dr Veliz by phone who stated she would come see the pt This note was completed by: Nabila Cartagena RN GLUCOSE METER Collected: 12/14/2017 Status: F Source: [facility] 10:37 AM HEALTH SYSTEM REPOSITORY TYPE CODE TESTS RESULT OUT OF REFERENCE UNITS RANGE LAB GLUBL(LOINC 70-99 mg/dL ) High Glucose Meter 253 Result Comment: RN NOTIFIED Performed By: #### GLMET #### [place] [id number] PROGRESS Observed: 12/14/2017 Status: COMPLETED Source: [facility] 9:00 AM CLINIC OTHER CAMPUS REPOSITORY HNO ID: [id number] Author: Jordyn Decker (Adina Veliz Service: General [...] pulmonary recommendations for this very special patient. [facility] DAILY PROGRESS NOTE SERVICE DATE: 12/14/2017 SERVICE [...] December 14, 2017 TIME: 8:26 AM Pager: [phone] CONSULT Observed: 12/14/2017 Status: COMPLETED Source: [facility] 8:35 AM [facility] OTHER CAMPUS REPOSITORY HNO ID: [id number] Author: Umu Rios CNP Service: Pulmonary Disease Author Type: Nurse Practitioner Type: Consults Filed: 12/14/2017 11:02 AM Note Text: Attestation signed by Echo Fernandes at 12/15/2017 9:40 AM [facility] STAFF PHYSICIAN NOTE OF PERSONAL INVOLVEMENT IN [...] Pulmonary will follow SIGNATURE: Echo Fernandes MD [facility] DATE of SERVICE: december 14, [...] in July and once just recently at [place] (admitted 11/27 - 12/08 and treated for [...] HISTORY Diagnosis Date - Cerebellar hemorrhage, acute ([facility]) 04/04/2016 - CKD (chronic kidney disease) stage 3, GFR 30-59 ml/min 04/04/2016 - CREST variant of scleroderma ([facility]) 04/04/2016 - Diabetic peripheral neuropathy associated with type 2 diabetes mellitus ([facility]) 01/19/2016 - Essential hypertension with goal blood pressure less than 130/85 01/19/2016 - Hyperlipidemia 01/19/2016 - Ischemic ulcer of finger with necrosis of muscle ([facility]) 01/19/2016 Left 3rd finger tip - Lazy eye of left side 1949s - Legally blind 01/19/2016 - Primary osteoarthritis of right knee 01/19/2016 - Retinal hemorrhage of right eye 2007 - S/P craniotomy 04/04/2016 - Type 2 diabetes mellitus with renal manifestations ([facility]) 01/19/2016 Dr. Romeo, nephrology - Umbilical hernia without obstruction and without gangrene 01/19/2016 PAST SURGICAL HISORY PAST SURGICAL HISTORY Procedure Laterality Date - ACHILLES TENDON SURGERY HX Right 1995 - BREAST BIOPSY CORE Left 2013 benign [facility] Colonoscopy w/bx [facility] - EGD W/O OR W/BRUSH/WASH 10/27/2017 EGD w/bx [facility] - LAPAROSCOPIC CHOLEYCYSTECTOMY Cholecystectomy, lap - REMOVAL [...] k/uL No recent new micro found in [facility] RADIOLOGY FILMS: CXR 12/13/17: 1. Lines, [...] 51% No PSGs / PFTs found in [facility] ? VITALS: BP 119/65 Pulse 64 [...] OP follow up with Dr. Valencia in [place]. 5. Suspected Acute on chronic diastolic heart [...] 10. Recent LLL Pneumonia - treated at [facility] with Zosyn AND Levaquin 11. MMP - per primary 12. Further evaluation with attending to follow. SIGNATURE: Umu Rios CNP PATIENT NAME: Michael Garcia DATE: December 14, 2017 TIME: 8:35 AM PAGER/CONTACT #: [phone] ? GLUCOSE METER Collected: 12/14/2017 Status: F Source: [facility] 6:29 AM HEALTH SYSTEM REPOSITORY TYPE CODE TESTS RESULT OUT OF REFERENCE UNITS RANGE LAB GLUBL(LOINC 70-99 mg/dL ) High Glucose Meter 132 Performed By: #### GLMET #### [place] [address] NURSING PROG Observed: 12/14/2017 Status: COMPLETED Source: [facility] 4:24 AM CLINIC OTHER CAMPUS REPOSITORY O ID: [id number] Author: Bhavya (Rn) ELI Forrest Service: Nursing Author Type: Registered Nurse Type: Nursing Progress Note Filed: 12/14/2017 4:27 AM Note Text: Nursing Progress Note Patient Name: Michael Garcia Patient Location: [place] [address] [address]* Daily Note: Patient was found sleeping without BiPAP mask on, was found to be 62% on room air. BiPAP was placed back on and pulled up in bed. Oxygen back to 94% on BiPAP, instructed to not remove mask when sleeping. Patient agreeable, will continue to monitor. This note was completed by: Bhavya Forrest RN IONIZED CALCIUM Collected: 12/13/2017 Status: F Source: [facility] 11:30 PM HEALTH SYSTEM REPOSITORY TYPE CODE TESTS RESULT OUT OF REFERENCE UNITS RANGE LAB CAION(LOINC 4.43-4.93 mg/dL ) Low Ionized 3.82 Calcium LAB PHCAI(LOINC 7.320-7.420 ) pH 7.381 LAB CAPH(LOINC) 4.36-4.73 mg/dL Low Ionized 3.78 Ca,PH7.4 Performed By: #### IONCA #### [facility] [address] [place] [address] MAGNESIUM BLOOD Collected: 12/13/2017 Status: F Source: [facility] 11:30 PM HEALTH SYSTEM REPOSITORY TYPE CODE TESTS RESULT OUT OF REFERENCE UNITS RANGE LAB MAG(LOINC) 1.6-2.6 mg/dL Magnesium Blood 1.6 Performed By: #### MAG #### [place] [address] PHOSPHORUS BLOOD Collected: 12/13/2017 Status: F Source: [facility] 11:30 PM HEALTH SYSTEM REPOSITORY TYPE CODE TESTS RESULT OUT OF REFERENCE UNITS RANGE LAB PHOS(LOINC 2.5-4.9 mg/dL ) Low Phosphorus Blood 2.1 Performed By: #### PHOS #### [place] [address] LD,TOTAL BLOOD Collected: 12/13/2017 Status: F Source: [facility] 11:30 PM HEALTH SYSTEM REPOSITORY TYPE CODE TESTS RESULT OUT OF RANGE REFERENCE UNITS LAB LDH(LOINC) 84-246 U/L LD,Total 127 Blood Performed By: #### LDH #### [place] [address] TOTAL PROTEIN Collected: 12/13/2017 Status: F Source: [facility] 11:30 PM HEALTH SYSTEM REPOSITORY TYPE CODE TESTS RESULT OUT OF REFERENCE UNITS RANGE LAB TP(LOINC) 6.4-8.2 g/dL Low Total Protein 6.3 Performed By: #### TP #### [place] [address] PROGRESS Observed: 12/13/2017 Status: COMPLETED Source: [facility] 10:53 PM CLINIC OTHER CAMPUS REPOSITORY O ID: [id number] Author: Luisa Lim Service: Hospital Medicine Author [...] metoprolol and amiodarone since admission. States at [facility] has been having some irregular heart rates, not sure if A-fib. Per previous records from [facility] may have Hx of PAF in the [...] NURSING PROG Observed: 12/13/2017 Status: COMPLETED Source: [facility] 9:47 PM CLINIC OTHER CAMPUS REPOSITORY HNO ID: [id number] Author: Bhavya (Rn) ELI Forrest Service: Nursing Author Type: Registered Nurse Type: Nursing Progress Note Filed: 12/13/2017 9:48 PM Note Text: Nursing Progress Note Patient Name: Michael Garcia Patient Location: [place] [address] [address]* Daily Note: Spoke with [facility] regarding patient now AFib on tele, HR ranging between 100's to 140's. States they will be up to see the patient. This note was completed by: Bhavya Forrest RN GLUCOSE METER Collected: 12/13/2017 Status: F Source: [facility] 8:06 PM HEALTH SYSTEM REPOSITORY TYPE CODE TESTS RESULT OUT OF REFERENCE UNITS RANGE LAB GLUBL(LOINC 70-99 mg/dL ) High Glucose Meter 149 Result Comment: RN NOTIFIED Performed By: #### GLMET #### [place] [address] GLUCOSE METER Collected: 12/13/2017 Status: F Source: [facility] 7:03 PM HEALTH SYSTEM REPOSITORY TYPE CODE TESTS RESULT OUT OF REFERENCE UNITS RANGE LAB GLUBL(LOINC 70-99 mg/dL ) High Glucose Meter 102 Result Comment: RN NOTIFIED Performed By: #### GLMET #### [facility] [address] [place], [place] [address] NURSING PROG Observed: 12/13/2017 Status: COMPLETED Source: [facility] 7:00 PM CLINIC OTHER CAMPUS REPOSITORY HNO ID: [id number] Author: Manju Watkins (Rn) ELI Quiroga Service: Dialysis Author Type: Registered Nurse Type: Nursing Progress Note Filed: 12/13/2017 8:08 PM Note Text: HEMODIALYSIS TX COMPLETED PAULA WELL STABLE -2000 ML OFF SEE FLOW SHEET FOR DETAILS CONSULT Observed: 12/13/2017 Status: COMPLETED Source: [facility] 3:42 PM CLINIC OTHER CAMPUS REPOSITORY HNO ID: [id number] Author: Nidia Jones MD Service: Nephrology Author [...] and HPLD. Patient was admitted recently to [facility] with pneumonia and UTI. Her hospital stay was complicated with JORGE on CKD . Initially JORGE was contributed to [facility] from sepsis with Afib and RVR. Patient was started on HD. So far had 5 sessions of HD. Last HD session was yesterday but was aborted early because she was told to come to [facility] to P[facility] . Patient was found [...] Type 2 diabetes mellitus with renal manifestations ([facility]) 01/19/2016 Dr. Romeo, nephrology - Umbilical hernia without obstruction and without gangrene 01/19/2016 PAST SURGICAL HISTORY Procedure Laterality Date - ACHILLES TENDON SURGERY HX Right 1995 - BREAST BIOPSY CORE Left 2013 benign - [facility] 10/27/2017 Colonoscopy w/bx [facility] - EGD W/O OR W/BRUSH/WASH 10/27/2017 EGD w/bx [facility] - LAPAROSCOPIC CHOLEYCYSTECTOMY Cholecystectomy, lap - REMOVAL [...] Will continue to follow Nidia Jones MD [phone] GLUCOSE METER Collected: 12/13/2017 Status: F Source: [facility] 10:42 AM HEALTH SYSTEM REPOSITORY TYPE CODE TESTS RESULT OUT OF REFERENCE UNITS RANGE LAB GLUBL(LOINC 70-99 mg/dL ) High Glucose Meter 253 Result Comment: RN NOTIFIED Performed By: #### GLMET #### [facility] [address] [place] [address] PROCALCITONIN Collected: 12/13/2017 Status: F Source: [facility] 9:05 AM HEALTH SYSTEM REPOSITORY TYPE [...] procalcitonin elevations. Performed By: #### PRCAS #### [place] [id number] PROGRESS Observed: 12/13/2017 Status: COMPLETED Source: [facility] 8:25 AM CLINIC OTHER CAMPUS REPOSITORY O ID: [id number] Author: Jordyn Decker (Arun) Jose Alfredo Service: [...] work up in progress as outlined below. [facility] DAILY PROGRESS NOTE SERVICE DATE: 12/13/2017 SERVICE [...] SIGNATURE: Jordyn Veliz MD PATIENT NAME: Michael aGrcia DATE: December 13, 2017 TIME: 8:26 AM Pager: [phone] GLUCOSE METER Collected: 12/13/2017 Status: F Source: [facility] 6:25 AM HEALTH SYSTEM REPOSITORY TYPE CODE TESTS RESULT OUT OF REFERENCE UNITS RANGE LAB GLUBL(LOINC 70-99 mg/dL ) High Glucose Meter 208 Performed By: #### GLMET #### [facility] [address] [place] [address] CHEST 1 VIEW Observed: 12/13/2017 Status: F Source: [facility] 3:38 AM HEALTH SYSTEM REPOSITORY Performed at [facility] APPROVED BY: MARION WYATT MD CHEST [...] chest PROGRESS Observed: 12/13/2017 Status: COMPLETED Source: [place] 3:08 AM CLINIC OTHER CAMPUS REPOSITORY HNO ID: [id number] Author: Yared Reynolds Service: General Internal Medicine [...] she has no history of CAD or MS. I was able to exaggerate the discomfort [...] visits. HEMOGRAM Collected: 12/13/2017 Status: F Source: [facility] 3:05 AM HEALTH SYSTEM REPOSITORY TYPE [...] MPV 9.9 Performed By: #### CBC1 #### [place] [address] TROPONIN I Collected: 12/13/2017 Status: F Source: [facility] 3:[facility]ALTH SYSTEM REPOSITORY TYPE CODE TESTS RESULT OUT OF REFERENCE UNITS RANGE LAB TROP(LOINC) 0.015-0.045 ng/ml Troponin I 0.016 Performed By: #### TROP #### [place] [address] BASIC PANEL Collected: 12/13/2017 Status: F Source: [facility] [address] SYSTEM REPOSITORY TYPE CODE TESTS RESULT [...] Gap 9 Performed By: #### P8 #### [place] [address] MDRD GFR Collected: 12/13/2017 Status: F Source: [address] SYSTEM REPOSITORY TYPE CODE TESTS RESULT OUT OF RANGE REFERENCE UNITS LAB GFRFN(LOINC >60mL/min/1.73m ) 2 eGFR 12.11 Result Comment: If the patient is , multiply the result by 1.210. Performed By: #### GFR #### [address] [address] NURSING PROG Observed: 12/13/2017 Status: COMPLETED Source: [place] 2:50 AM [facility] REPOSITORY HNO ID: [id number] Author: Michell (Rn) ELI Ríos Service: Nursing [...] arms or back; no nausea. VS charted. [facility] paged - resident on their way to the floor to evaluate pt. GLUCOSE METER Collected: 12/12/2017 Status: F Source: [facility] 7:52 PM HEALTH SYSTEM REPOSITORY TYPE CODE TESTS RESULT OUT OF REFERENCE UNITS RANGE LAB GLUBL(LOINC 70-99 mg/dL ) High Glucose Meter 254 Result Comment: RN NOTIFIED Performed By: #### GLMET #### [place] [address] NURSING PROG Observed: 12/12/2017 Status: COMPLETED Source: [place] 6:29 PM [facility] REPOSITORY HNO ID: [id number] Author: Yvonne (Rn) ELI Martinez Service: (none) Author Type: Registered Nurse Type: Nursing Progress Note Filed: 12/12/2017 6:32 PM Note Text: Nursing Progress Note Patient Name: Michael Garcia Patient Location: [place] [address] [address]* Daily Note: 1527 Pt arrived to unit from home with family on supplemental O2. VSS. Admission assessment completed, page out to sound (dr worley admitting) 1550 Spoke with sound, trying to transfer patient to [facility]? Will await further instruction. 1600 Pt wants to spend the night, pt in semi-private room. Spoke with [facility], pt okay to move to [phone] when clean. 1630 Sound and house med on unit, pt being transferred to house med service 1830 Orders placed for patient. Insulin scheduled q6 not achs? Page out to house med This note was completed by: Yvonne Martinez RN HISTORY PHYSICAL Observed: 12/12/2017 Status: COMPLETED Source: [place] 5:10 PM CLINIC OTHER CAMPUS REPOSITORY HNO ID: [id number] Author: Lori Yadavij Service: Hospital Medicine Author [...] L at home, She was admitted to [facility] 11/27/17, she presented with chest pain, minimal [...] HISTORY Diagnosis Date - Cerebellar hemorrhage, acute ([facility]) 04/04/2016 - CKD (chronic kidney disease) stage 3, GFR 30-59 ml/min 04/04/2016 - CREST variant of scleroderma ([facility]) 04/04/2016 - Diabetic peripheral neuropathy associated with type 2 diabetes mellitus ([facility]) 01/19/2016 - Essential hypertension with goal blood pressure less than 130/85 01/19/2016 - Hyperlipidemia 01/19/2016 - Ischemic ulcer of finger with necrosis of muscle ([facility]) 01/19/2016 Left 3rd finger tip - Lazy eye of left side 1950s - Legally blind 01/19/2016 - Primary osteoarthritis of right knee 01/19/2016 - Retinal hemorrhage of right eye 2007 - S/P craniotomy 04/04/2016 - Type 2 diabetes mellitus with renal manifestations ([facility]) 01/19/2016 Dr. Romeo, nephrology - Umbilical hernia without obstruction and without gangrene 01/19/2016 PAST SURGICAL HISTORY Procedure Laterality Date - ACHILLES TENDON SURGERY HX Right 1995 - BREAST BIOPSY CORE Left 2013 benign - [facility] Colonoscopy w/bx [facility] - EGD W/O OR W/BRUSH/WASH 10/27/2017 EGD w/bx [facility] - LAPAROSCOPIC CHOLEYCYSTECTOMY Cholecystectomy, lap - REMOVAL [...] ventilatory defct detected on PFT 2016 at [facility] - also complicated with left sided pleural effusion, was supposed to have thoracentesis done at [facility], will check CXR, and order afterwards IR [...] [id number] HEMOGRAM/DIFF Collected: 12/12/2017 Status: F Source: [facility] 4:20 PM HEALTH SYSTEM REPOSITORY TYPE [...] 0.74 LAB MONON(LOIN 0.27-0.70 thou/cmm C) Abs. Archuleta 0.57 LAB EOSN(LOINC 0.00-0.31 thou/cmm ) Abs. Eosin 0.10 LAB BASON(LOIN 0.01-0.08 thou/cmm C) Abs. Baso 0.03 Performed By: #### CBCD1 #### [facility] [address] [place] [address] COMPREHENSIVE PANEL Collected: 12/12/2017 Status: F Source: [facility] 4:20 PM HEALTH SYSTEM REPOSITORY TYPE [...] Gap 9 Performed By: #### P14 #### [facility] [address] [place] [address] PHOSPHORUS BLOOD Collected: 12/12/2017 Status: F Source: [facility] 4:20 PM HEALTH SYSTEM REPOSITORY TYPE CODE TESTS RESULT OUT OF REFERENCE UNITS RANGE LAB PHOS(LOINC 2.5-4.9 mg/dL ) High Phosphorus Blood 5.0 Performed By: #### PHOS #### [facility] [address] [place] [address] MAGNESIUM BLOOD Collected: 12/12/2017 Status: F Source: [facility] 4:20 PM HEALTH SYSTEM REPOSITORY TYPE CODE TESTS RESULT OUT OF REFERENCE UNITS RANGE LAB MAG(LOINC) 1.6-2.6 mg/dL Magnesium Blood 2.3 Performed By: #### MAG #### [facility] [address] [place] [address] MDRD GFR Collected: 12/12/2017 Status: F Source: [facility] 4:20 PM HEALTH SYSTEM REPOSITORY TYPE CODE TESTS RESULT OUT OF RANGE REFERENCE UNITS LAB GFRFN(LOINC >60mL/min/1.73m ) 2 eGFR 14.16 Result Comment: If the patient is , multiply the result by 1.210. Performed By: #### GFR #### [facility] [address] [place] [address] HGB A1C Collected: 12/12/2017 Status: F Source: [facility] 4:20 PM HEALTH SYSTEM REPOSITORY TYPE CODE TESTS RESULT OUT OF RANGE REFERENCE UNITS LAB A1C5(LOINC) 4.2-6.3 % High Hgb A1c 7.6 Result Comment: Method is National Glycohemoglobin Standardization Program (NGSP) compliant. LAB ESAVG(LOINC) mg/dl Est. Avg Glucose 171 Performed By: #### HA1C #### [facility] [address] [place] [address] GLUCOSE METER Collected: 12/12/2017 Status: F Source: [facility] 3:55 PM HEALTH SYSTEM REPOSITORY TYPE CODE TESTS RESULT OUT OF REFERENCE UNITS RANGE LAB GLUBL(LOINC 70-99 mg/dL ) High Glucose Meter 178 Result Comment: RN NOTIFIED Performed By: #### GLMET #### [facility] [address] [place] [address] HOSP Observed: 12/12/2017 Status: COMPLETED Source: [place] 12:00 AM CLINIC OTHER CAMPUS REPOSITORY Patient:Michael Garcia MRN: <[id number]> Height:5' 5(1.651 m) Weight:217 lb 2.5 oz [...] acting) (HumaLOG KWIKPEN) fluticasone 50 mcg/actuation 1 Deposit (FLONASE) pill splitter (patient-specific) atorvastatin 40 mg [...] S/P craniotomy [Z98.890] CREST variant of scleroderma ([facility]) [M34.1] CKD (chronic kidney disease) stage 3, GFR 30-59 ml/min [N18.3] Hypoxemia [R09.02] Acute diastolic CHF (congestive heart failure) ([facility]) [I50.31] Anemia in stage 3 chronic kidney disease [N18.3, D63.1] JORGE (acute kidney injury) ([facility]) [N17.9] Allergies: No Known Allergies Date Verified:12/16/17 [...] L at home, She was admitted to [facility] 11/27/17, she presented with chest pain, minimal [...] ml/min 04/04/2016 - CREST variant of scleroderma ([facility]) 04/04/2016 - Diabetic peripheral neuropathy associated with type 2 diabetes mellitus ([facility]) 01/19/2016 - Essential hypertension with goal blood pressure less than 130/85 01/19/2016 - Hyperlipidemia 01/19/2016 - Ischemic ulcer of finger with necrosis of muscle ([facility]) 01/19/2016 Left 3rd finger tip - Lazy eye of left side - Legally blind 01/19/2016 - Primary osteoarthritis of right knee 01/19/2016 - Retinal hemorrhage of right eye 2007 - S/P craniotomy 04/04/2016 - Type 2 diabetes mellitus with renal manifestations ([facility]) 01/19/2016 Dr. Romeo, nephrology - Umbilical hernia without obstruction and without gangrene 01/19/2016 PAST SURGICAL HISTORY Procedure Laterality Date - ACHILLES TENDON SURGERY HX Right 1995 - BREAST BIOPSY CORE Left 2013 benign - [facility] Colon[facility] w/bx [facility] - EGD W/O OR W/BRUSH/WASH 10/27/2017 EGD w/bx [facility] - LAPAROSCOPIC CHOLEYCYSTECTOMY Cholecystectomy, lap - REMOVAL [...] ventilatory defct detected on PFT 2016 at [facility] - also complicated with left sided pleural effusion, was supposed to have thoracentesis done at [facility], will check CXR, and order afterwards IR [...] Note Patient Name: Michael Garcia Patient Location: [place] [address] [address]* Daily Note: 1527 Pt arrived to unit from home with family on supplemental O2. VSS. Admission assessment completed, page out to [facility] (dr worley admitting) 1550 Spoke with [facility], trying to transfer patient to [facility]? Will await further instruction. 1600 Pt wants to spend the night, pt in semi-private room. Spoke with [facility], pt okay to move to 81 when clean. 1630 [facility] on unit, pt being transferred to [facility] service 1830 Orders placed for patient. Insulin scheduled q6 not achs? Page out to [facility] This note was completed by: Yvonne Martinez, RN January ELI Ríos, RN 12/13/2017 3:17 AM Signed Pt c/o chest pain. States she woke up to it around 230a. Tech states pt walked to the bathroom without difficulty. Pt describes it as a dull, heavy feeling across her entire chest. No pain radiating to arms or back; no nausea. VS charted. [facility] paged - resident on their way [...] she has no history of CAD or MS. I was able to exaggerate the discomfort [...] Amiodarone 2/2 pulm HTN - records from [facility] reviewed, not on anticoagulation 2/2 anemia and hx of intra cerebral bleed ? CREST Constipation - Will add senna ? PAD - Continue ASA, Statin ? INES - CPAP at night ? Nasal pressure ulcer (POA) 2/2 cpap mask ? DVT PPX - Lovenox renal dose SIGNATURE: Jordyn Veliz MD PATIENT NAME: Michael Garcia DATE: December 13, 2017 TIME: 8:26 AM Pager: [phone] Previous Version Nidia Jones MD, MD 12/13/2017 [...] and HPLD. Patient was admitted recently to [facility] with pneumonia and UTI. Her hospital stay was complicated with JORGE on CKD . Initially JORGE was contributed to ATN from sepsis with Afib and RVR. Patient was started on HD. So far had 5 sessions of HD. Last HD session was yesterday but was aborted early because she was told to come to [facility] to PEX . Patient was found [...] Type 2 diabetes mellitus with renal manifestations ([facility]) 01/19/2016 Dr. Romeo, nephrology - Umbilical hernia without obstruction and without gangrene 01/19/2016 PAST SURGICAL HISTORY Procedure Laterality Date - ACHILLES TENDON SURGERY HX Right 1995 - BREAST BIOPSY CORE Left 2013 benign - [facility]2017 Colonoscopy w/bx [facility] - EGD W/O OR W/BRUSH/WASH 10/27/2017 EGD w/bx [facility] - LAPAROSCOPIC CHOLEYCYSTECTOMY Cholecystectomy, lap - REMOVAL [...] Will continue to follow Nidia Jones MD [phone] Manju Quiroga, RN, RN 12/13/2017 8:08 PM Signed HEMODIALYSIS TX COMPLETED PAULA WELL STABLE -2000 ML OFF SEE FLOW SHEET FOR DETAILS Bhavya Forrest, RN, RN 12/13/2017 9:48 PM Signed Nursing Progress Note Patient Name: Michael Garcia Patient Location: [id number]/[facility]13-490* Daily Note: Spoke with [facility] regarding patient now AFib on tele, [...] metoprolol and amiodarone since admission. States at [facility] has been having some irregular heart rates, not sure if A-fib. Per previous records from [facility] may have Hx of PAF in the [...] Note Patient Name: Michael Garcia Patient Location: [id number]/[facility]4167-411* Daily Note: Patient was found sleeping without BiPAP mask on, was found to be 62% on room air. BiPAP was placed back on and pulled up in bed. Oxygen back to 94% on BiPAP, instructed to not remove mask when sleeping. Patient agreeable, will continue to monitor. This note was completed by: ELI Burns CNP, COMPENSATION ADMINISTRATOR 12/14/2017 11:02 AM Attested Addendum Attestation signed by Echo Fernandes at 12/15/2017 9:40 AM [facility] STAFF PHYSICIAN NOTE OF PERSONAL INVOLVEMENT IN [...] Pulmonary will follow SIGNATURE: Echo Fernandes MD [facility] DATE of SERVICE: december 14, [...] in July and once just recently at [place] (admitted 11/27 - 12/08 and treated for [...] HISTORY Diagnosis Date - Cerebellar hemorrhage, acute ([facility]) 04/04/2016 - CKD (chronic kidney disease) stage 3, GFR 30-59 ml/min 04/04/2016 - CREST variant of scleroderma ([facility]) 04/04/2016 - Diabetic peripheral neuropathy associated with type 2 diabetes mellitus ([facility]) 01/19/2016 - Essential hypertension with goal blood pressure less than 130/85 01/19/2016 - Hyperlipidemia 01/19/2016 - Ischemic ulcer of finger with necrosis of muscle ([facility]) 01/19/2016 Left 3rd finger tip - Lazy eye of left side 1949s - Legally blind 01/19/2016 - Primary osteoarthritis of right knee 01/19/2016 - Retinal hemorrhage of right eye 2007 - S/P craniotomy 04/04/2016 - Type 2 diabetes mellitus with renal manifestations ([facility]) 01/19/2016 Dr. Romeo, nephrology - Umbilical hernia without obstruction and without gangrene 01/19/2016 PAST SURGICAL HISORY PAST SURGICAL HISTORY Procedure Laterality Date - ACHILLES TENDON SURGERY HX Right 1995 - BREAST BIOPSY CORE Left 2013 benign - [facility] 10/[facility]/2017 Colonoscopy w/bx [facility] - EGD W/O OR W/BRUSH/WASH 10/27/2017 EGD w/bx [facility] - LAPAROSCOPIC CHOLEYCYSTECTOMY Cholecystectomy, lap - REMOVAL [...] k/uL No recent new micro found in [facility] RADIOLOGY FILMS: CXR 12/13/17: 1. Lines, [...] 51% No PSGs / PFTs found in [facility] ? VITALS: BP 119/65 Pulse 64 [...] OP follow up with Dr. Valencia in [place]. 5. Suspected Acute on chronic diastolic heart [...] 10. Recent LLL Pneumonia - treated at [facility] with Zosyn AND Levaquin 11. MMP - per primary 12. Further evaluation with attending to follow. SIGNATURE: Umu Rois CNP PATIENT NAME: Michael Garcia DATE: December 14, 2017 TIME: 8:35 AM PAGER/CONTACT #: [phone] ? Attestation signed by Echo Fernandes at 12/14/2017 10:16 AM to a previous version PULMONARY PROGRESS NOTE [facility] SERVICE DATE: December 14, 2017 SERVICE TIME: 10:04 AM Subjective 72yr old female admitted with JORGE/CKD and ANCA vasculitis. Started on plasmapheresis. Patient c/o significant shortness of breath and stuffy nose. Denies any wheezing, cough, phlegm, chest pain, fevers or chills. OBJECTIVE Current Facility-Administered Medications: fluticasone 50 mcg/actuation 1 Deposit (FLONASE) 1 Deposit EACH NOSTRIL DAILY Umu Rios CNP loratadine [...] problems. pulmonary will follow SIGNATURE: Echo Fernandes MD,[facility] PATIENT NAME: Michael Garcia DATE: December 14, 2017 TIME: 10:04 AM PAGER/CONTACT #: [phone] Previous Version Jordyn Veliz MD 12/14/2017 12:54 [...] Amiodarone 2/2 pulm HTN - records from [facility] reviewed, not on anticoagulation 2/2 anemia and hx of intra cerebral bleed ? CREST Constipation - Will add senna ? PAD - Continue ASA, Statin ? INES - CPAP at night ? Nasal pressure ulcer (POA) 2/2 cpap mask ? DVT PPX - Lovenox renal dose SIGNATURE: Jordyn Veliz MD PATIENT NAME: Michael Garcia DATE: December 14, 2017 TIME: 8:26 AM Pager: [phone] Nabila Cartagena, ELI, RN 12/14/2017 4:15 PM Signed Nursing Progress Note Patient Name: Michael Garcia Patient Location: [place] [address]/[facility]83[facility]* Pt c/o 04/14 heavy chest pain. Spoke with Dr Veliz by phone who stated she would come see the pt This note was completed by: ELI Matos MD, MD 12/14/2017 2:18 PM Signed CONSULT PROGRESS NOTE NEPHROLOGY SERVICE Following for JORGE on HD No complaints today No nausea No vomiting No SOB No CP MEDICATIONS: Current hospital medications: fluticasone 50 mcg/actuation 1 Deposit (FLONASE) 1 Deposit EACH NOSTRIL DAILY loratadine 10 mg tab(s) [...] to follow ? ? Nidia Jones MD [phone] ? Teresa Palacio COMPENSATION ADMINISTRATOR, COMPENSATION ADMINISTRATOR 12/15/2017 8:36 AM Attested Addendum Attestation signed by Raimundo Wall at 12/15/2017 9:18 AM [facility] STAFF PHYSICIAN NOTE OF PERSONAL INVOLVEMENT IN [...] Current Facility-Administered Medications: fluticasone 50 mcg/actuation 1 Deposit (FLONASE) 1 Deposit EACH NOSTRIL DAILY Umu (Parent Partner) Gabriel, COMPENSATION ADMINISTRATOR 1 Deposit at 12/14/17 1211 loratadine 10 mg tab(s) (CLARITIN) 10 mg ORAL DAILY Umu (Parent Partner) Gabriel, COMPENSATION ADMINISTRATOR 10 mg at 12/14/17 1210 pill splitter [...] Luisa (Res) Sharkhatunyan 1 application at 12/13/17 7405 albuterol HFA 90 mcg/actuation 2 Puff (PROVENTIL [...] LABS/MICRO DATA/RADIOLOGY FILMS NO MICROBIOLOGY DATA BNP 28176 PROCALCITONIN 0.29 BMP: Glucose (mg/dL) Date Value [...] OP follow up with Dr Valencia in [place]. 5) Acute on Chronic Diastolic HF with [...] 15, 2017 TIME: 8:16 AM PAGER/CONTACT #: [phone] Previous Version Frances Piña, PT, PT 12/15/2017 8:56 AM Signed Physical Therapy Evaluation SERVICE DATE: 12/15/2017 SERVICE TIME: 804 to 834 ROOM: [place] [address] Recommended Discharge Disposition: Home PT Anticipated Discharge [...] gait and mobility-other Interventions Provided: Evaluation;Gait Training (12826) $ Evaluation-Moderate (37891) Billed Units: 1 unit Gait Training (82359) Treatment Minutes: 8 1 unit Skilled Intervention(s): [...] verbal cues for proper hand placement during hjp-tl-xjdhu transfers Patient set up in chair with [...] Problems Diagnosis - JORGE (acute kidney injury) ([facility]) PAST MEDICAL HISTORY Diagnosis Date - Cerebellar hemorrhage, acute ([facility]) 04/04/2016 - CKD (chronic kidney disease) stage 3, GFR 30-59 ml/min 04/04/2016 - CREST variant of scleroderma ([facility]) 04/04/2016 - Diabetic peripheral neuropathy associated with type 2 diabetes mellitus ([facility]) 01/19/2016 - Essential hypertension with goal blood pressure less than 130/85 01/19/2016 - Hyperlipidemia 01/19/2016 - Ischemic ulcer of finger with necrosis of muscle ([facility]) 01/19/2016 Left 3rd finger tip - Lazy eye of left side 1949s - Legally blind 01/19/2016 - Primary osteoarthritis of right knee 01/19/2016 - Retinal hemorrhage of right eye 2007 - S/P craniotomy 04/04/2016 - Type 2 diabetes mellitus with renal manifestations ([facility]) 01/19/2016 Dr. Romeo, nephrology - Umbilical hernia without obstruction and without gangrene 01/19/2016 PAST SURGICAL HISTORY Procedure Laterality Date - ACHILLES TENDON SURGERY HX Right 1995 - BREAST BIOPSY CORE Left 2013 benign - [facility] 10/27/2017 Colonoscopy w/bx [facility] - EGD W/O OR W/BRUSH/WASH 10/27/2017 EGD w/bx [facility] - LAPAROSCOPIC CHOLEYCYSTECTOMY Cholecystectomy, lap - REMOVAL OF TONSILS,<12 Y/O 1974 Tonsillectomy - REPAIR ROTATOR CUFF,ACUTE Right 1986 - REVISE MEDIAN N/CARPAL TUNNEL SURG Right 1989 - REVISE ULNAR NERVE AT ELBOW Right 1989 Patient Report: Lying on her back in bed. States her stomach and chest are uncomfortable. Rates 7/10 discomfort. Agreeable to PT Home Environment Patient Lives With: Significant Other ([facility]) Assistance Available: 24 Hour Entry To Home: [...] 15, 2017 TIME: 8:50 AM PAGER/CONTACT #: [phone] Vani Hodge MD 12/15/2017 9:47 PM Signed [facility] DAILY PROGRESS NOTE SERVICE DATE: 12/15/2017 SERVICE TIME: 8:26 AM This is a 72 year old female with PMHx of CREST, HTN, CAD, Chronic respiratory failure on 3.5 L home O2 and T2DM with recent hospital admission for PNA, UTI, new onset Afib, c.diff, and JORGE requiring HD admitted currently per recommendation from account assistant for evaluation and management of p ANCA [...] INTRAVENOUS PRN(NO DISPENSE) fluticasone 50 mcg/actuation 1 Deposit (FLONASE) 1 Deposit EACH NOSTRIL DAILY loratadine 10 mg tab(s) [...] Amiodarone 2/2 pulm HTN - records from [facility] reviewed, not on anticoagulation 2/2 anemia and hx of intra cerebral bleed ? CREST Constipation - on senna ? PAD - Continue ASA, Statin ? INES - CPAP at night ? Nasal pressure ulcer (POA) 2/2 cpap mask ? DVT PPX - Lovenox renal dose SIGNATURE: Jordyn Veliz MD PATIENT NAME: Michael Garcia DATE: December 15, 2017 TIME: 8:26 AM Pager: [phone] Transferred to my service Chart reviewed Evaluated independently Discussed with Dr. Veliz and agree with above notes which reflect my input with following additions Awaiting for renal biopsy Discussed with patient Attestation signed by Vani Hodge MD [facility] Attending December 15, 2017 9:46 PM Previous [...] OF PRESENT ILLNESS: Patient has been at [facility] since Friday night. Patient reports that she was at a hospital in [place] being treated for pneumonia and UTI and was receiving HD at that time for JORGE. The pt. was instructed to come of [facility] for kidney biopsy. Pt. Will undergo [...] INTRAVENOUS PRN(NO DISPENSE) fluticasone 50 mcg/actuation 1 Deposit (FLONASE) 1 Deposit EACH NOSTRIL DAILY loratadine 10 mg tab(s) [...] DATE: 12/15/17 NAME: Michael Garcia LOG ID: [id number] Pre-Procedure Diagnosis: Renal failure Post Procedure Diagnosis: Same. Medical Claims Specialist: Dr. Manuel Mcgee (Primary) Procedure: Biopsy Anesthesia: [...] ALLERGIES No Known Allergies Preferred Pharmacy: [facility] ([phone]) or [facility] ([phone]) Current [facility] Medications: Prior to Admission medications as of [...] oxygen Dx: Hypoxemia. R09.02. 3 LPM via MT continuous. ergocalciferol, vitamin D2, (VITAMIN D) 50,000 unit capsule Take 1 capsule by mouth once every month. albuterol HFA (VENTOLIN HFA) 90 mcg/actuation inhaler Inhale 2 Puffs as instructed every 4 hours as needed for Wheezing/Shortness of Breath. Padma Bangura (Vehicle Window Tinter) December 15, 2017 3:03 PM I discussed medication history with associate dean of students. I removed a duplicate vitamin D order from the patient's medication list. BELINAD RICE, PHARMACIST 4:27 PM Previous Version Liv Fuller, RN, RN 12/15/2017 3:29 PM Addendum CARE MANAGEMENT: ASSESSMENT AND DISCHARGE PLAN SERVICE DATE: 12/15/2017 SERVICE TIME: 5 PRIMARY CARE PHYSICIAN: Mat Duffy MD ADMISSION STATUS: Inpatient Needs Prior to Discharge: To Be Determined;OT/PT Evaluation;Pharmacy Bedside Delivery 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 Long Term Equipment Prior to Admission: Walker, home O2 3.5 liters nc , rollator, transport chair, shower seat, grab bars Has the Patient Been in a Long Term Facility in the Past 30 days? No [...] 0 I feel financially burdened by my mto-ef-nhqwsy expenses for my prescription medication: Disagree completely [...] a dialysis pt. [facility] [place] Every MWF. Chair time 0600. SIGNATURE: Liv Fuller RN PATIENT NAME: Michael Garcia DATE: December 15, 2017 TIME: 3:15 PM PAGER/CONTACT #: [phone] Previous Version Umu Rios CNP, CNP 12/16/2017 8:34 AM Attested Attestation signed by Raimundo Wall at 12/16/2017 9:04 AM [facility] STAFF PHYSICIAN NOTE OF PERSONAL INVOLVEMENT IN [...] (Res) Jose Alfredo fluticasone 50 mcg/actuation 1 Deposit (FLONASE) 1 Deposit EACH NOSTRIL DAILY Umu Hyatt) JULIO C Rios 1 Deposit at 12/15/17 0855 pill splitter (patient-specific) 1 [...] LABS/MICRO DATA/RADIOLOGY FILMS NO MICROBIOLOGY DATA BNP 15361 PROCALCITONIN 0.29 BMP: Glucose (mg/dL) Date Value [...] OP follow up with Dr. Valencia in [place]. May eventually need [facility]. 5) Acute on [...] to follow up with Dr. Valencia in [place] as outlined above. SIGNATURE: Umu Rios CNP PATIENT NAME: Michael Garcia DATE: December 16, 2017 TIME: 8:13 AM PAGER/CONTACT #: [phone] Laura Castillo, RN, RN 12/16/2017 8:46 AM Signed Continuous pulse ox discontinued per pulm orders. Roxann Harry, RN, RN 12/16/2017 8:52 AM Signed SIDE SEAM MACHINE OPERATOR NOTE SERVICE DATE: 12/16/2017 SERVICE TIME: 8:51 AM Referral: Home Care referral received by: RO Patient is active with [place] [facility] agency for skilled care Will [...] OF PRESENT ILLNESS: Patient has been at [facility] since Friday night. The Patient reports [...] SUBCUTANEOUS w MEALS fluticasone 50 mcg/actuation 1 Deposit (FLONASE) 1 Deposit EACH NOSTRIL DAILY pill splitter (patient-specific) 1 [...] change catheter Will monitor closely Progress Notes ([facility]): Rose Crespo RN 12/11/2017 11:01 AM Signed 1) [facility]- reports patient was discharged from hospital [...] 5:09 PM Signed Pt was admitted to [facility] today. Discard note. PROGRESS Observed: 12/10/2017 Status: COMPLETED Source: [place] 4:50 PM [facility] [place] REPOSITORY O ID: [id number] Author: Simin Villarreal Service: (none) Author Type: Registered Nurse Type: Progress Notes Filed: 12/12/2017 5:09 PM Note Text: PRIMARY CARE COORDINATION QUICK NOTE Provider Action/FYI Pt admitted to [facility] this afternoon due to kidney inflammation per . Patient identified by name and date . Pt was home but after dialysis, she was sent to [facility] for admission. No notes available yet- will follow for D/C. Simin Villarreal RN Ambulatory Roll Coating Machine Operator Internal Medicine [facility] 12 LEAD ELECTROCARDIOGRAM Observed: 12/10/2017 Status: F Source: [place] 1:47 PM [facility] REPOSITORY [facility] Cardiovascular Services [address] [place] [address] 12 Lead EKG 12/05/17 2314 MR#: [id number] Acct: [id number] Name: MICHAEL GARCIA Rep #: [id number] : 1945 72 From: Darien Mcclendon MD [...] UNCONFIRMED Confirmed by DARIEN MCCLENDON MD ([id number]), video effects editor HONORIO SHEFFILED ([id number]) on 12/10/2017 1:47:12 PM Referred By: SANDEE Confirmed By:DARIEN MCCLENDON MD 12/10/17 1347 Date Darien Mcclendon MD CC: Naun Wilhelm MD; Mat Duffy MD Signed 12 LEAD ELECTROCARDIOGRAM Observed: 12/10/2017 Status: F Source: [place] 1:24 PM [facility] REPOSITORY [facility] Cardiovascular Services [address] [place] [address] 12 Lead EKG 12/03/17 0349 MR#: [id number] Acct: [id number] Name: MICHAEL GARCIA Rep #: [id number] : 1945 72 From: Darien Mcclendon MD Attending Dr: Irene Wilson MD Status: DIS IN Ordering Dr: Jeevan Machado MD Date: 12/05/17 Location: [facility] Sex: F C Admitted: 11/27/17 Test Reason [...] IS UNCONFIRMED Confirmed by DANELLE LOONEY, DARIEN ([id number]), video effects editor HONORIO SHEFFIELD ([id number]) on 12/10/2017 1:24:32 PM Referred By: DR AGUDELO Confirmed By:DARIEN MCCLENDON MD 12/10/17 1324 Date Darien Mcclendon MD CC: Jeevan Machado MD; Mat Duffy MD Signed [facility] Observed: 12/10/2017 Status: COMPLETED Source: [place] 12:00 AM [facility] REPOSITORY Patient Outreach ([facility]) MICHAEL GARCIA ([id number]) 1945 F BLD Date Time Provider Department 12/10/17 SIMIN AUQINOWS During your visit today, we recorded the following information about you: Simin Duarte RN 12/12/2017 5:09 PM Signed PRIMARY CARE COORDINATION QUICK NOTE Provider Action/FYI Pt admitted to [facility] this afternoon due to ANDquot;kidney inflammationANDquot; per . Patient identified by name and date . Pt was home but after dialysis, she was sent to [facility] for admission. No notes available yet- will follow for D/C. Simin Villarreal RN Ambulatory Roll Coating Machine Operator Internal Medicine [facility] Allergies As of Date: 12/10/2017 (No Known Allergies) Date Reviewed: 11/14/2017 Reviewed by: Evangelina Mckeon) - Fully Assessed Reason for Visit: Roll Coating Machine Operator Hospital Follow Up [3611] Cmt: [facility] 11/27/17- 12/09/17 Prescriptions as of 12/10/2017 Sig: [...] DISCHARGE SUMMARY Observed: 12/09/2017 Status: F Source: [place] 3:34 PM [facility] REPOSITORY [facility] Medical Records Department [address] [place] [address] Discharge Summary 12/09/17 1511 MR#: [id number] Acct: [id number] Name: MICHAEL GARCIA Rep #: [id number] : 1945 72 From: Irene Wilson MD PCP: Mat Duffy MD Status: ADM IN Y Location: [place] [address] Discharge Date and Diagnosis - Problem List [...] applicable Code Visit Inpatient E AND M: 68416 Disch Hosp 12/09/17 1534 <Electronically signed by Irene Wilson MD> Date Irene Wilson MD Cosigner Signature (if applicable): Date CC: Irene Wilson MD; Mat Duffy MD Signed DISCHARGE INSTRUCTION Observed: 12/09/2017 Status: F Source: [place] 3:11 PM [facility] REPOSITORY [facility] Medical Records Department [address] [place] [address] Instructions for Home/Discharge Instructions 12/09/17 1509 MR#: [id number] Acct: [id number] Name: MICHAEL GARCIA Rep #: [id number] : 1945 72 From: Irene Wilson MD [...] 12/09/2017 Status: F Source: [place] 11:15 AM [facility] REPOSITORY TYPE CODE TESTS RESULT OUT OF REFERENCE UNITS RANGE LAB L501.080 70-110 mg/dL High BEDSIDE GLU 262 Result Comment: MANAGEMENT OF PATIENT CARE PER NURSING PROTOCOL Performed By: #### L501.080 #### [facility] Laboratory Point of Care [address] [place] [address] BEDSIDE GLUCOSE Collected: 12/09/2017 Status: F Source: CHRISTOPHER 6:44 AM [facility] REPOSITORY TYPE CODE TESTS RESULT OUT OF REFERENCE UNITS RANGE LAB L501.080 70-110 mg/dL High BEDSIDE GLU 153 Result Comment: Insulin Given MANAGEMENT OF PATIENT CARE PER NURSING PROTOCOL Performed By: #### L501.080 #### [facility] Laboratory Point of Care [address] [place] [address] BASIC METABOLIC Collected: 12/09/2017 Status: F Source: CHRISTOPHER PROFILE (BMP) 5:35 AM [facility] REPOSITORY TYPE CODE TESTS RESULT OUT OF [...] GAP 8 Performed By: #### L500.2500 #### [facility] [address] [facility] [place], [place], [id number] BEDSIDE GLUCOSE Collected: 12/08/2017 Status: F Source: RUMNEY 10:18 PM [facility] REPOSITORY TYPE CODE TESTS RESULT OUT OF REFERENCE UNITS RANGE LAB L501.080 70-110 mg/dL High BEDSIDE GLU 238 Result Comment: Insulin Given MANAGEMENT OF PATIENT CARE PER NURSING PROTOCOL Performed By: #### L501.080 #### [facility] Laboratory Point of Care [address] [place] [address] BEDSIDE GLUCOSE Collected: 12/08/2017 Status: F Source: RUMNEY 5:54 PM [facility] REPOSITORY TYPE CODE TESTS RESULT OUT OF REFERENCE UNITS RANGE LAB L501.080 70-110 mg/dL High BEDSIDE GLU 121 Result Comment: MANAGEMENT OF PATIENT CARE PER NURSING PROTOCOL Performed By: #### L501.080 #### [facility] Laboratory Point of Care [address] [place], [place] [id number] OPERATIVE REPORT Observed: 12/08/2017 Status: F Source: RUMNEY 5:08 PM [facility] REPOSITORY [facility] Medical Records Department [address] [place] [address] Operative Report 12/08/17 1703 MR#: [id number] Acct: [id number] Name: MICHAEL GARCIA Rep #: [id number] : 1945 72 From: Anoop Angeles MD PCP: Mat Duffy MD Status: ADM IN Y Location: [address] Problem List (1) JORGE (acute kidney injury) Status: Acute Report of Operation Date of Procedure: 12/08/17 Pre-Operative Diagnosis: Acute kidney injury Post-Operative Diagnosis: Same Surgery/Procedure Performed:: Left internal jugular 23 cm pre-curved tunneled palindrome hemodialysis catheter placement. Reference number [id number]. 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 Per patient , her PCP would like [...] in 2016. She was transferred to the [facility] for treatment. Dr. West is her neurologist. [...] 1 VIEW Observed: 12/08/2017 Status: F Source: RUMNEY (PORTABLE) 4:34 PM [facility] REPOSITORY [facility] Imaging Services [address] [place] [address] [place] [address] Chest 1 View (Portable) MR#: [id number] Acct: [id number] Name: MICHAEL GARCIA Rep #: [id number] : 1945 F 72 From: Kvng Yung MD PCP: Mat Duffy MD Status: ADM IN Study: Chest 1 View (Portable) Date of Exam: 12/08/17 Exam# [id number] Ordering Dr: Anoop Angeles MD STUDY: X-RAY [...] CC: Anoop Angeles MD; Mat Duffy MD [facility]: Signed BEDSIDE GLUCOSE Collected: 12/08/2017 Status: F Source: CHRISTOPHER 11:01 AM [facility] REPOSITORY TYPE CODE TESTS RESULT OUT OF REFERENCE UNITS RANGE LAB L501.080 70-110 mg/dL High BEDSIDE GLU 139 Result Comment: MANAGEMENT OF PATIENT CARE PER NURSING PROTOCOL Performed By: #### L501.080 #### [facility] Laboratory Point of Care [address] [place] [address] BEDSIDE GLUCOSE Collected: 12/08/2017 Status: F Source: CHRISTOPHER 6:59 AM [facility] REPOSITORY TYPE CODE TESTS RESULT OUT OF REFERENCE UNITS RANGE LAB L501.080 70-110 mg/dL High BEDSIDE GLU 163 Result Comment: MANAGEMENT OF PATIENT CARE PER NURSING PROTOCOL Performed By: #### L501.080 #### [facility] Laboratory Point of Care [address] [place] [address] BASIC METABOLIC Collected: 12/08/2017 Status: F Source: CHRISTOPHER PROFILE (BMP) 5:05 AM [facility] REPOSITORY TYPE CODE TESTS RESULT OUT OF [...] GAP 10 Performed By: #### L500.2500 #### [facility] [address] [place], [place], [id number] PROTHROMBIN TIME W/INR Collected: 12/08/2017 Status: F Source: CHRISTOPHER 5:05 AM [facility] REPOSITORY TYPE CODE TESTS RESULT OUT OF RANGE REFERENCE UNITS LAB L300.4150 11.7-14.9 SECONDS Normal PROTIME 14.0 LAB L300.4200 Normal INR 1.1 Performed By: #### L300.3900, L300.4310 #### [facility] [address] [place], [place], [id number] PARTIAL THROMBOPLAST Collected: 12/08/2017 Status: F Source: CHRISTOPHER TIME 5:05 AM [facility] REPOSITORY TYPE CODE TESTS RESULT OUT OF REFERENCE UNITS RANGE LAB L300.4310 24.1-36.2 Seconds High PTT 42.8 Performed By: #### L300.3900, L300.4310 #### [facility] [address] [place], [address] CBC-COMPLETE BLOOD CNT Collected: 12/08/2017 Status: F Source: CHRISTOPHER NO DIFF 5:05 AM [facility] REPOSITORY TYPE CODE TESTS RESULT OUT OF [...] MPV 9.5 Performed By: #### L100.0500 #### [facility] [address] [place], [place], [address] BEDSIDE GLUCOSE Collected: 12/07/2017 Status: F Source: CHRISTOPHER 8:59 PM [facility] REPOSITORY TYPE CODE TESTS RESULT OUT OF REFERENCE UNITS RANGE LAB L501.080 70-110 mg/dL High BEDSIDE GLU 218 Result Comment: MANAGEMENT OF PATIENT CARE PER NURSING PROTOCOL Performed By: #### L501.080 #### [facility] Laboratory Point of Care [address] [place], [place] [id number] ([address]) BEDSIDE GLUCOSE Collected: 12/07/2017 Status: F Source: CHRISTOPHER 4:44 PM [facility] REPOSITORY TYPE CODE TESTS RESULT OUT OF REFERENCE UNITS RANGE LAB L501.080 70-110 mg/dL High BEDSIDE GLU 204 Result Comment: MANAGEMENT OF PATIENT CARE PER NURSING PROTOCOL Performed By: #### L501.080 #### [facility] Laboratory Point of Care [address] [facility] [place] [address] BEDSIDE GLUCOSE Collected: 12/07/2017 Status: F Source: CHRISTOPHER 11:31 AM [facility] REPOSITORY TYPE CODE TESTS RESULT OUT OF REFERENCE UNITS RANGE LAB L501.080 70-110 mg/dL High BEDSIDE GLU 196 Result Comment: MANAGEMENT OF PATIENT CARE PER NURSING PROTOCOL Performed By: #### L501.080 #### [facility] Point of Care [address] [place] [address] BEDSIDE GLUCOSE Collected: 12/07/2017 Status: F Source: CHRISTOPHER 6:44 AM [facility] REPOSITORY TYPE CODE TESTS RESULT OUT OF REFERENCE UNITS RANGE LAB L501.080 70-110 mg/dL High BEDSIDE GLU 115 Result Comment: MANAGEMENT OF PATIENT CARE PER NURSING PROTOCOL Performed By: #### L501.080 #### [facility] Point of Care [address] [place] [address] CBC-COMPLETE BLOOD CNT Collected: 12/07/2017 Status: F Source: CHRISTOPHER NO DIFF 5:14 AM [facility] REPOSITORY TYPE CODE TESTS RESULT OUT OF [...] MPV 9.4 Performed By: #### L100.0500 #### [facility] [address] [place], [place], [address] BASIC METABOLIC Collected: 12/07/2017 Status: F Source: CHRISTOPHER PROFILE (BMP) 5:14 AM [facility] REPOSITORY TYPE CODE TESTS RESULT OUT OF [...] 11 Performed By: #### L500.2500, L501.5200 #### [facility] [address] [facility]. [place], [place], [id number] MAGNESIUM Collected: 12/07/2017 Status: F Source: RUMNEY 5:14 AM [facility] REPOSITORY TYPE CODE TESTS RESULT OUT OF RANGE REFERENCE UNITS LAB L501.5200 1.6-2.6 mg/dL Normal MG 2.2 Result Comment: Please note revised Magnesium reference range effective 2017. Performed By: #### L500.2500, L501.5200 #### [facility] [address] [place], [place], [address] BEDSIDE GLUCOSE Collected: 12/06/2017 Status: F Source: CHRISTOPHER 8:45 PM [facility] REPOSITORY TYPE CODE TESTS RESULT OUT OF REFERENCE UNITS RANGE LAB L501.080 70-110 mg/dL High BEDSIDE GLU 175 Result Comment: MANAGEMENT OF PATIENT CARE PER NURSING PROTOCOL Performed By: #### L501.080 #### [facility] Laboratory Point of Care [address] [place] [address] BEDSIDE GLUCOSE Collected: 12/06/2017 Status: F Source: CHRISTOPHER 4:48 PM [facility] REPOSITORY TYPE CODE TESTS RESULT OUT OF REFERENCE UNITS RANGE LAB L501.080 70-110 mg/dL High BEDSIDE GLU 231 Result Comment: MANAGEMENT OF PATIENT CARE PER NURSING PROTOCOL Performed By: #### L501.080 #### [facility] Laboratory Point of Care [address] [place] [address] BEDSIDE GLUCOSE Collected: 12/06/2017 Status: F Source: CHRISTOPHER 11:31 AM [facility] REPOSITORY TYPE CODE TESTS RESULT OUT OF REFERENCE UNITS RANGE LAB L501.080 70-110 mg/dL High BEDSIDE GLU 240 Result Comment: MANAGEMENT OF PATIENT CARE PER NURSING PROTOCOL Performed By: #### L501.080 #### [facility] Point of Care [address] [facility] [place], [place] [address] CBC-COMPLETE BLOOD CNT Collected: 12/06/2017 Status: F Source: CHRISTOPHER NO DIFF 11:00 AM [facility] REPOSITORY TYPE CODE TESTS RESULT OUT OF [...] MPV 8.9 Performed By: #### L100.0500 #### [facility] [address] [place], [address] BASIC METABOLIC Collected: 12/06/2017 Status: F Source: CHRISTOPHER PROFILE ([facility]) 11:00 AM [facility] REPOSITORY TYPE CODE TESTS RESULT OUT OF [...] 9 Performed By: #### L500.2500, L501.5200 #### [facility] [address] [place], [place], [address] MAGNESIUM Collected: 12/06/2017 Status: F Source: CHRISTOPHER 11:00 AM [facility] REPOSITORY TYPE CODE TESTS RESULT OUT OF RANGE REFERENCE UNITS LAB L501.5200 1.6-2.6 mg/dL Normal MG 2.1 Result Comment: Please note revised Magnesium reference range effective 2017. Performed By: #### L500.2500, L501.5200 #### [facility] [address] [place], [address] BEDSIDE GLUCOSE Collected: 12/06/2017 Status: F Source: CHRISTOPHER 6:53 AM [facility] REPOSITORY TYPE CODE TESTS RESULT OUT OF RANGE REFERENCE UNITS LAB L501.080 70-110 mg/dL Normal BEDSIDE GLU 101 Result Comment: MANAGEMENT OF PATIENT CARE PER NURSING PROTOCOL Performed By: #### L501.080 #### [facility] Laboratory Point of Care [address] [place] [address] BEDSIDE GLUCOSE Collected: 12/05/2017 Status: F Source: CHRISTOPHER 9:35 PM [facility] REPOSITORY TYPE CODE TESTS RESULT OUT OF REFERENCE UNITS RANGE LAB L501.080 70-110 mg/dL High BEDSIDE GLU 164 Result Comment: MANAGEMENT OF PATIENT CARE PER NURSING PROTOCOL Performed By: #### L501.080 #### [facility] Point of Care [address] [place] [address] BEDSIDE GLUCOSE Collected: 12/05/2017 Status: F Source: CHRISTOPHER 6:24 PM [facility] REPOSITORY TYPE CODE TESTS RESULT OUT OF REFERENCE UNITS RANGE LAB L501.080 70-110 mg/dL High BEDSIDE GLU 145 Result Comment: MANAGEMENT OF PATIENT CARE PER NURSING PROTOCOL Performed By: #### L501.080 #### [facility] Laboratory Point of Care [address] [place] [address] BEDSIDE GLUCOSE Collected: 12/05/2017 Status: F Source: CHRISTOPHER 11:42 AM [facility] REPOSITORY TYPE CODE TESTS RESULT OUT OF REFERENCE UNITS RANGE LAB L501.080 70-110 mg/dL High BEDSIDE GLU 303 Result Comment: MANAGEMENT OF PATIENT CARE PER NURSING PROTOCOL Performed By: #### L501.080 #### [facility] Point of Care [address] [place] [address] BEDSIDE GLUCOSE Collected: 12/05/2017 Status: F Source: CHRISTOPHER 6:39 AM [facility] REPOSITORY TYPE CODE TESTS RESULT OUT OF REFERENCE UNITS RANGE LAB L501.080 70-110 mg/dL High BEDSIDE GLU 156 Result Comment: MANAGEMENT OF PATIENT CARE PER NURSING PROTOCOL Performed By: #### L501.080 #### [facility] Laboratory Point of Care [address] [place], [place] [address] CBC W/DIFF, AUTOMATED Collected: 12/05/2017 Status: F Source: CHRISTOPHER 5:05 AM [facility] REPOSITORY TYPE CODE TESTS RESULT OUT OF [...] Lymph 0.90 Performed By: #### L100.0100 #### [facility] [address] [place], [place], [address] BASIC METABOLIC Collected: 12/05/2017 Status: F Source: CHRISTOPHER PROFILE (BMP) 5:05 AM [facility] REPOSITORY TYPE CODE TESTS RESULT OUT OF [...] GAP 9 Performed By: #### L500.2500 #### [facility] [address] [facility]. [place], [place], [address] BEDSIDE GLUCOSE Collected: 12/04/2017 Status: F Source: CHRISTOPHER 10:00 PM [facility] REPOSITORY TYPE CODE TESTS RESULT OUT OF REFERENCE UNITS RANGE LAB L501.080 70-110 mg/dL High BEDSIDE GLU 264 Result Comment: MANAGEMENT OF PATIENT CARE PER NURSING PROTOCOL Performed By: #### L501.080 #### [facility] Laboratory Point of Care [address] [place], [place] [address] BEDSIDE GLUCOSE Collected: 12/04/2017 Status: F Source: CHRISTOPHER 4:33 PM [facility] REPOSITORY TYPE CODE TESTS RESULT OUT OF REFERENCE UNITS RANGE LAB L501.080 70-110 mg/dL High BEDSIDE GLU 198 Result Comment: MANAGEMENT OF PATIENT CARE PER NURSING PROTOCOL Performed By: #### L501.080 #### [facility] Laboratory Point of Care [address] [place] [address] BEDSIDE GLUCOSE Collected: 12/04/2017 Status: F Source: CHRISTOPHER 11:17 AM [facility] REPOSITORY TYPE CODE TESTS RESULT OUT OF REFERENCE UNITS RANGE LAB L501.080 70-110 mg/dL High BEDSIDE GLU 220 Result Comment: MANAGEMENT OF PATIENT CARE PER NURSING PROTOCOL Performed By: #### L501.080 #### [facility] Laboratory Point of Care [address] [place] [address] BEDSIDE GLUCOSE Collected: 12/04/2017 Status: F Source: CHRISTOPHER 6:38 AM [facility] REPOSITORY TYPE CODE TESTS RESULT OUT OF REFERENCE UNITS RANGE LAB L501.080 70-110 mg/dL High BEDSIDE GLU 132 Result Comment: MANAGEMENT OF PATIENT CARE PER NURSING PROTOCOL Performed By: #### L501.080 #### [facility] Point of Care [address] [place] [address] BASIC METABOLIC Collected: 12/04/2017 Status: F Source: CHRISTOPHER PROFILE (BMP) 5:35 AM [facility] REPOSITORY TYPE CODE TESTS RESULT OUT OF [...] GAP 7 Performed By: #### L500.2500 #### [facility] [address] [place], [address] BEDSIDE GLUCOSE Collected: 12/03/2017 Status: F Source: RUMNEY 9:45 PM [facility] REPOSITORY TYPE CODE TESTS RESULT OUT OF REFERENCE UNITS RANGE LAB L501.080 70-110 mg/dL High BEDSIDE GLU 165 Result Comment: MANAGEMENT OF PATIENT CARE PER NURSING PROTOCOL Performed By: #### L501.080 #### [facility] Point of Care [address] [place] [address] BEDSIDE GLUCOSE Collected: 12/03/2017 Status: F Source: RUMNEY 5:17 PM [facility] REPOSITORY TYPE CODE TESTS RESULT OUT OF REFERENCE UNITS RANGE LAB L501.080 70-110 mg/dL High BEDSIDE GLU 140 Result Comment: MANAGEMENT OF PATIENT CARE PER NURSING PROTOCOL Performed By: #### L501.080 #### [facility] Laboratory Point of Care [address] [facility] [place] [address] OT D/C SUMMARY Observed: 12/03/2017 Status: F Source: RUMNEY 4:38 PM [facility] REPOSITORY [facility] Occupational Therapy [facility] [address] [place] [address]. [address] [place] [address] Fax REHABILITATION SERVICES DISCHARGE SUMMARY MR#: [id number] Acct: [id number] Name: MICHAEL GARCIA Rep #: [id number] : 1945 72 From: Norbert Burks OTR/L, CHT Referring DrMaritza: Severiano Kumar MD Status: REG RCR Eval Date: Discharge Date: - OT D/C Summary It has been my pleasure to treat MICHAEL GARCIA under orders from Severiano Kumar DR.[facility] for the diagnosis of right hand swelling [...] pt will demo a increase in right baffle mounter to 20# or greater to return pt [...] please fell free to call me at [phone]. Thank you for the referral of this patient. Sincerely, Norbert Burks, OTR/L, CHT <Electronically signed by Norbert Burks OTR/L, CHT> 12/03/17 1638 CC: Severiano Kumar MD; Mat Duffy MD MK Signed HEPATITIS B SURFACE Collected: 12/03/2017 Status: F Source: CHRISTOPHER AG 3:35 PM [facility] REPOSITORY TYPE CODE TESTS RESULT OUT OF RANGE REFERENCE UNITS LAB L3100.0400 Negative Normal HB Negative SURF AG Performed By: #### L3100.0390, L3100.0460, L3100.0480 #### [facility] (refer to report for specific site) refer to report for address and phone number HEPATITIS B CORE AB Collected: 12/03/2017 Status: F Source: CHRISTOPHER TOTAL 3:35 PM [facility] REPOSITORY TYPE CODE TESTS RESULT OUT OF RANGE REFERENCE UNITS LAB L3100.0460 Negative Normal HEP B Negative CORE,TOT Result Comment: Performed at: [facility] [id number] Cottage Attendant: Ayad Joy PhD, Phone: [phone] Performed By: #### L3100.0390, L3100.0460, L3100.0480 #### [facility] (refer to report for specific site) refer to report for address and phone number HEPATITIS BE AB Collected: 12/03/2017 Status: F Source: CHRISTOPHER 3:35 PM [facility] REPOSITORY TYPE CODE TESTS RESULT OUT OF RANGE REFERENCE UNITS LAB L3100.0480 Negative Normal HEP Negative Be Ab 6635 Performed By: #### L3100.0390, L3100.0460, L3100.0480 #### [facility] (refer to report for specific site) refer to report for address and phone number SHANDRA + PROTEIN ELECT, Collected: 12/03/2017 Status: F Source: CHRISTOPHER SERUM 3:35 PM [facility] REPOSITORY TYPE CODE TESTS RESULT OUT OF RANGE REFERENCE UNITS LAB L3100.3500 6.0-8.5 g/dL Normal PROTEIN,TOTAL 6.9 LAB L3200.4539 665-6450 mg/dL Normal IMMUNO G 1239 LAB L3200.1400 87-352 mg/dL High IMMUNO A 482 LAB L3200.1500 26-217 mg/dL High IMMUNOGL M 427 LAB L3200.1510 2.9-4.4 g/dL Normal ALBUMIN 2.9 LAB L3200.1520 0.0-0.4 g/dL Normal JHCLB-3-TIRX 0.4 LAB L3200.1530 0.4-1.0 g/dL High WIDFU-6-HWCS 1.1 LAB L3200.1540 0.7-1.3 g/dL Normal BETA [...] scan will follow via computer, mail, or chemical lab technician delivery. Performed By: #### L3100.3425, L3100.3450, L3300.1200, L3410.0300 #### [facility] (refer to report for specific site) refer to report for address and phone number PROTEIN ELECTROPH, S Collected: 12/03/2017 Status: F Source: CHRISTOPHER 3:35 PM [facility] REPOSITORY TYPE CODE TESTS RESULT OUT OF [...] scan will follow via computer, mail, or chemical lab technician delivery. LAB L3100.4340 . Normal NOTE: Comment [...] 12/03/2017 Status: F Source: CHRISTOPHER 3:35 PM [facility] REPOSITORY TYPE CODE TESTS RESULT OUT OF [...] up testing of positive sera with both MO- 3 and MPO-ANCA enzyme immunoassays. As many [...] F Source: CHRISTOPHER IGG, AB 3:35 PM [facility] REPOSITORY TYPE CODE TESTS RESULT OUT OF RANGE REFERENCE UNITS LAB L3410.0300 0-19 EU High SS AB 242 [id number] Result Comment: Negative: <20 Borderline: 20 - 25 Positive: >25 Performed at: [facility] [id number] Cottage Attendant: Ayad Joy PhD, Phone: [phone] Performed at: [facility] [id number] Cottage Attendant: Chris Simeon MD, Phone: [phone] Performed By: #### L3100.6638, N8667.3326, P9921.6053, O6415.6305 #### [facility] (refer to report for specific site) refer to report for address and phone number 12 LEAD ELECTROCARDIOGRAM Observed: 12/03/2017 Status: F Source: CHRISTOPHER 2:42 PM [facility] REPOSITORY [facility] Cardiovascular Services [address] [place] [address] 12 Lead EKG 11/29/17 1045 MR#: [id number] Acct: [id number] Name: MICHAEL GARCIA Rep #: [id number] : 1945 72 From: Darien Mcclendon MD Attending Dr: Jeevan Machado MD Status: ADM IN Ordering Dr: Fahad Sesay MD Date: 12/03/17 Location: [facility] Sex: F C Admitted: 11/27/17 Test Reason [...] UNCONFIRMED Confirmed by DARIEN MCCLENDON MD ([id number]), video effects editor HONORIO SHEFFIELD ([id number]) on 12/03/2017 2:42:19 PM Referred By: JACK Confirmed By:DARIEN MCCLENDON MD 12/03/17 1442 Date Darien Mcclendon MD CC: Fahad Sesay; Mat Duffy MD Signed OPERATIVE REPORT Observed: 12/03/2017 Status: F Source: CHRISTOPHER 11:43 AM [facility] REPOSITORY [facility] Medical Records Department [address] [place] [address] Operative Report 12/03/17 1134 MR#: [id number] Acct: [id number] Name: MICHAEL GARCIA Rep #: [id number] : 1945 72 From: Josi JENSEN PCP: Mat Duffy MD Status: ADM IN Y Location: [place] [address] Problem List (1) JORGE (acute kidney injury) [...] the absence of pneumothorax. Code Visit Procedures: 43708 Insert Non-tunnel CV Cath 12/03/17 1143 <Electronically signed by Josi JENSEN> Date Josi JENSEN CC: Nidia Jones MD; Rocael Valencia MD; Josi Hickman; Ortiz Markham MD; Matilde Hayward MD; Mat Duffy MD Signed BEDSIDE GLUCOSE Collected: 12/03/2017 Status: F Source: CHRISTOPHER 11:43 AM [facility] REPOSITORY TYPE CODE TESTS RESULT OUT OF REFERENCE UNITS RANGE LAB L501.080 70-110 mg/dL High BEDSIDE GLU 265 Result Comment: MANAGEMENT OF PATIENT CARE PER NURSING PROTOCOL Performed By: #### L501.080 #### [facility] Laboratory Point of Care [address] [place], [place] [address] CHEST 1 VIEW Observed: 12/03/2017 Status: F Source: CHRISTOPHER (PORTABLE) 11:29 AM [facility] REPOSITORY [facility] Imaging Services [address] [place] [address] Chest 1 View (Portable) MR#: [id number] Acct: [id number] Name: MICHAEL GARCIA Rep #: [id number] : 1945 F 72 From: Brett Arcos MD PCP: Mat Duffy MD Status: ADM IN Study: Chest 1 View (Portable) Date of Exam: 12/03/17 Exam# [id number] Ordering Dr: Matilde Hayward MD STUDY: X-RAY [...] Brett Arcos MD at 12:44 EST Tel [phone], Service support , CC: Matilde Hayward MD; Mat Duffy MD [facility]ician [facility]: Signed CHEST 1 VIEW Observed: 12/03/2017 Status: F Source: CHRISTOPHER (PORTABLE) 6:57 AM [facility] REPOSITORY [facility] Imaging Services [address] [place] [address] Chest 1 View (Portable) MR#: [id number] Acct: [id number] Name: MICHAEL GARCIA Rep #: [id number] : 1945 F 72 From: Brett Arcos MD PCP: Mat Duffy MD Status: ADM IN Study: Chest 1 View (Portable) Date of Exam: 12/03/17 Exam# [id number] Ordering Dr: Aydin Carroll DO STUDY: X-RAY [...] Brett Arcos MD at 10:25 EST Tel [phone], Service support , CC: Aydin Carroll D.O.; Mat Duffy MD [facility]: Signed BEDSIDE GLUCOSE Collected: 12/03/2017 Status: F Source: CHRISTOPHER 6:55 AM [facility] REPOSITORY TYPE CODE TESTS RESULT OUT OF REFERENCE UNITS RANGE LAB L501.080 70-110 mg/dL High BEDSIDE GLU 144 Result Comment: MANAGEMENT OF PATIENT CARE PER NURSING PROTOCOL Performed By: #### L501.080 #### [facility] Point [place] [address] CBC W/DIFF, AUTOMATED Collected: 12/03/2017 Status: F Source: RUMNEY 5:15 AM [facility] REPOSITORY TYPE CODE TESTS RESULT OUT OF [...] Lymph 1.06 Performed By: #### L100.0100 #### [facility] [address] [facility]. [place], [place], [address] BASIC METABOLIC Collected: 12/03/2017 Status: F Source: RUMNEY PROFILE (BMP) 5:15 AM [facility] REPOSITORY TYPE CODE TESTS RESULT OUT OF [...] 9 Performed By: #### L500.2500, L501.5200 #### [facility] [address] [facility] [place], [address] MAGNESIUM Collected: 12/03/2017 Status: F Source: CHRISTOPHER 5:15 AM [facility] REPOSITORY TYPE CODE TESTS RESULT OUT OF RANGE REFERENCE UNITS LAB L501.5200 1.6-2.6 mg/dL Normal MG 2.5 Result Comment: Please note revised Magnesium reference range effective 2017. Performed By: #### L500.2500, L501.5200 #### [facility] [address] [place], [address] BEDSIDE GLUCOSE Collected: 12/02/2017 Status: F Source: CHRISTOPHER 9:10 PM [facility] REPOSITORY TYPE CODE TESTS RESULT OUT OF REFERENCE UNITS RANGE LAB L501.080 70-110 mg/dL High BEDSIDE GLU 214 Result Comment: MANAGEMENT OF PATIENT CARE PER NURSING PROTOCOL Performed By: #### L501.080 #### [facility] Point of Care [address] [place] [address] BEDSIDE GLUCOSE Collected: 12/02/2017 Status: F Source: CHRISTOPHER 3:53 PM [facility] REPOSITORY TYPE CODE TESTS RESULT OUT OF REFERENCE UNITS RANGE LAB L501.080 70-110 mg/dL High BEDSIDE GLU 222 Result Comment: MANAGEMENT OF PATIENT CARE PER NURSING PROTOCOL Performed By: #### L501.080 #### [facility] Point of Care [address] [place] [address] 12 LEAD ELECTROCARDIOGRAM Observed: 12/02/2017 Status: F Source: CHRISTOPHER 2:19 PM [facility] REPOSITORY [facility] Cardiovascular Services [address] [facility] [place] [address] 12 Lead EKG 11/28/17 0457 MR#: [id number] Acct: [id number] Name: MICHAEL GARCIA Rose Rep #: [id number] : 1945 72 From: Ortiz Markham MD [...] IS UNCONFIRMED Confirmed by ORTIZ MARKHAM ([id number]), video effects editor HONORIO SHEFFIELD ([id number]) on 12/02/2017 2:18:52 PM Referred By: Severiano Kumar Confirmed By:ORTIZ MARKHAM 12/02/17 1418 Date Ortiz Markham MD CC: Ortiz Markham MD; Mat Duffy MD Signed 12 LEAD ELECTROCARDIOGRAM Observed: 12/02/2017 Status: F Source: RUMNEY 1:57 PM [facility] REPOSITORY [facility] Cardiovascular Services [address] [place] [address] 12 Lead EKG 11/27/17 0934 MR#: [id number] Acct: [id number] Name: MICHAEL GARCIA Rep #: [id number] : 1945 72 From: Ortiz Markham MD Attending Dr: Jeevan Machado MD Status: ADM IN Ordering Dr: Trevor Hamm MD Date: 11/27/17 Location: [facility] Sex: F C Admitted: 11/27/17 Test Reason [...] IS UNCONFIRMED Confirmed by ORTIZ MARKHAM ([id number]), video effects editor HONORIO SHEFFIELD ([id number]) on 12/02/2017 1:56:29 PM Referred By: Severiano Kumar Confirmed By:ORTIZ MARKHAM 12/02/17 1356 Date Ortiz Markham MD CC: Trevor Hamm MD; Mat Duffy MD Signed BASIC METABOLIC Collected: 12/02/2017 Status: F Source: CHRISTOPHER PROFILE (BMP) 1:55 PM [facility] REPOSITORY TYPE CODE TESTS RESULT OUT OF [...] GAP 8 Performed By: #### L500.2500 #### [facility] [address] [facility] [place], [address] 12 LEAD ELECTROCARDIOGRAM Observed: 12/02/2017 Status: F Source: CHRISTOPHER 1:50 PM [facility] REPOSITORY [facility] Cardiovascular Services [address] [facility] [place] [address] 12 Lead EKG 11/27/17 0549 MR#: [id number] Acct: [id number] Name: MICHAEL GARCIA Rep #: [id number] : 1945 72 From: Ortiz Markham MD Attending Dr: Jeevan Machado MD Status: ADM IN Ordering Dr: Reinier Lang MD Date: 11/28/17 Location: [facility] Sex: F C Admitted: 11/27/17 Test Reason : CP Blood Pressure : / mmHG Vent. Rate : 103 BPM Atrial Rate : 103 BPM P-R Int : 130 ms QRS Dur : 080 ms QT Int : 342 ms P-R-T Axes : 046 023 059 degrees QTc Int : 448 ms Sinus tachycardia Otherwise normal ECG Confirmed by ORTIZ MARKHAM ([id number]), video effects editor HONORIO SHEFFIELD ([id number]) on 12/02/2017 1:49:59 PM Referred By: Severiano Kumar Confirmed By:ORTIZ MARKHAM 12/02/17 1350 Date Ortiz Markham MD CC: Reinier Lang MD; Mat Duffy MD Signed BEDSIDE GLUCOSE Collected: 12/02/2017 Status: F Source: CHRISTOPHER 11:26 AM [facility] REPOSITORY TYPE CODE TESTS RESULT OUT OF REFERENCE UNITS RANGE LAB L501.080 70-110 mg/dL High BEDSIDE GLU 275 Result Comment: MANAGEMENT OF PATIENT CARE PER NURSING PROTOCOL Performed By: #### L501.080 #### [facility] Point of Care [address] [place] [address] BEDSIDE GLUCOSE Collected: 12/02/2017 Status: F Source: CHRISTOPHER 6:41 AM [facility] REPOSITORY TYPE CODE TESTS RESULT OUT OF REFERENCE UNITS RANGE LAB L501.080 70-110 mg/dL High BEDSIDE GLU 239 Result Comment: MANAGEMENT OF PATIENT CARE PER NURSING PROTOCOL Performed By: #### L501.080 #### [facility] Laboratory Point of Care [address] [place] [address] CBC-COMPLETE BLOOD CNT Collected: 12/02/2017 Status: F Source: CHRISTOPHER NO DIFF 5:10 AM [facility] REPOSITORY TYPE CODE TESTS RESULT OUT OF [...] MPV 9.1 Performed By: #### L100.0500 #### [facility] [address] [place], [address] BASIC METABOLIC Collected: 12/02/2017 Status: F Source: RUMNEY PROFILE (BMP) 5:10 AM [facility] REPOSITORY TYPE CODE TESTS RESULT OUT OF [...] 9 Performed By: #### L500.2500, L501.5200 #### [facility] [address] [facility] [facility] [address] MAGNESIUM Collected: 12/02/2017 Status: F Source: CHRISTOPHER 5:10 AM [facility] REPOSITORY TYPE CODE TESTS RESULT OUT OF RANGE REFERENCE UNITS LAB L501.5200 1.6-2.6 mg/dL Normal MG 2.6 Result Comment: Please note revised Magnesium reference range effective 2017. Performed By: #### L500.2500, L501.5200 #### [facility] [place], [address] BEDSIDE GLUCOSE Collected: 12/01/2017 Status: F Source: CHRISTOPHER 9:00 PM [facility] REPOSITORY TYPE CODE TESTS RESULT OUT OF REFERENCE UNITS RANGE LAB L501.080 70-110 mg/dL High BEDSIDE GLU 216 Result Comment: MANAGEMENT OF PATIENT CARE PER NURSING PROTOCOL Performed By: #### L501.080 #### [facility] Point of Care [address] [place] [address] [place] [address] BEDSIDE GLUCOSE Collected: 12/01/2017 Status: F Source: CHRISTOPHER 4:46 PM [facility] REPOSITORY TYPE CODE TESTS RESULT OUT OF REFERENCE UNITS RANGE LAB L501.080 70-110 mg/dL High BEDSIDE GLU 209 Result Comment: MANAGEMENT OF PATIENT CARE PER NURSING PROTOCOL Performed By: #### L501.080 #### [facility] Point of Care [address] [facility] [place] [address] CONSULTATION Observed: 12/01/2017 Status: F Source: CHRISTOPHER 12:35 PM [facility] REPOSITORY [facility] Medical Records Department [address] [place] [address] [place] [address] Consultation 12/01/17 1226 MR#: [id number] Acct: [id number] Name: MICHAEL GARCIA Rep #: [id number] : 1945 72 From: Trell Jenkins MD PCP: Mat Duffy MD Status: ADM IN Y Location: [place] [address] Problem List (1) JORGE (acute kidney injury) [...] Medications Albuterol/Ipratropium (Duoneb) 3 ml INHALATION Q6H.RT [facility] Last Admin: 12/01/17 06:42 Dose: 3 ml Amiodarone HCl (Cordarone) 200 mg PO DAILY [facility] Last Admin: 12/01/17 09:39 Dose: 200 mg Atorvastatin Calcium (Lipitor) 40 mg PO QHS [facility] Last Admin: 11/30/17 22:42 Dose: 40 mg Bisacodyl (Dulcolax) 5 mg PO DAILY PRN PRN PRN Reason: Constipation Clonidine (Catapres) 0.1 mg PO TID [facility] Last Admin: 12/01/17 05:28 Dose: 0.1 mg Dextrose (D50w Syringe) 0 gm IV X1 PRN; Protocol PRN Reason: Hypoglycemia Gabapentin (Neurontin) 300 mg PO QHS [facility] Last Admin: 11/30/17 22:50 Dose: 300 mg Glucagon () 1 mg IM .X1 PRN PRN Reason: Hypoglycemia Guaifenesin (Robitussin) 10 ml PO Q6H PRN PRN PRN Reason: COUGH/CONGESTION Heparin Sodium (Porcine) () 5,000 units SC BID [facility] Last Admin: 12/01/17 09:39 Dose: 5,000 units Piperacillin Sod/Tazobactam Sod (Zosyn) 3.375 gm in 50 mls @ 12.5 mls/hr IV Q8 [facility] Last Admin: 12/01/17 05:26 Dose: 12.5 mls/hr Insulin Aspart (Novolog Flexpen (Bk)) 0 units SC ACHS [facility] PRN Reason: Protocol Last Admin: 12/01/17 11:57 Dose: 2 u Insulin Detemir (Levemir ([facility])) 39 units SC BID [facility] Last Admin: 12/01/17 09:39 Dose: 39 u Levofloxacin (Levaquin) 250 mg PO DAILY@0600 [facility] Last Admin: 12/01/17 05:37 Dose: 250 mg Metoprolol Tartrate (Lopressor (Beta Stephania)) 50 mg PO BID [facility] Last Admin: 12/01/17 09:39 Dose: 50 mg Oxycodone HCl (Oxyir) 5 mg PO Q6H PRN PRN PRN Reason: SEVERE PAIN (6-10/10) Last Admin: 11/29/17 17:58 Dose: 5 mg Pantoprazole Sodium (Protonix) 40 mg PO DAILY [facility] Last Admin: 12/01/17 09:39 Dose: 40 mg Polysaccharide Iron Complex (Ferrex 150) [facility] Last Admin: 12/01/17 09:39 Dose: 150 [...] is fairly dysneic no acute indications for [employer] today would dose levaquin and other drugs to GFR less than 15 since she is anuric Anemia. s/p PRBC 12/01/17 1235 <Electronically signed by Trell Jenkins MD> Date Trell Jenkins MD Cosigner Signature (if applicable): Date CC: Nidia Jones MD; Rocael Valencia MD; Ortiz Markham MD; Matilde Hayward MD; Mat Duffy MD Signed BEDSIDE GLUCOSE Collected: 12/01/2017 Status: F Source: CHRISTOPHER 11:21 AM [facility] REPOSITORY TYPE CODE TESTS RESULT OUT OF REFERENCE UNITS RANGE LAB L501.080 70-110 mg/dL High BEDSIDE GLU 269 Result Comment: MANAGEMENT OF PATIENT CARE PER NURSING PROTOCOL Performed By: #### L501.080 #### [facility] Laboratory Point of Care [address] [place] [address] BEDSIDE GLUCOSE Collected: 12/01/2017 Status: F Source: CHRISTOPHER 6:48 AM [facility] REPOSITORY TYPE CODE TESTS RESULT OUT OF REFERENCE UNITS RANGE LAB L501.080 70-110 mg/dL High BEDSIDE GLU 129 Result Comment: MANAGEMENT OF PATIENT CARE PER NURSING PROTOCOL Performed By: #### L501.080 #### [facility] Laboratory Point of Care [address] [place] [address] BASIC METABOLIC Collected: 12/01/2017 Status: F Source: CHRISTOPHER PROFILE (BMP) 5:05 AM [facility] REPOSITORY TYPE CODE TESTS RESULT OUT OF [...] GAP 7 Performed By: #### L500.2500 #### [facility] [address] [place], [address] CBC W/DIFF, AUTOMATED Collected: 12/01/2017 Status: F Source: RUMNEY 5:05 AM [facility] REPOSITORY TYPE CODE TESTS RESULT OUT OF [...] Lymph 0.92 Performed By: #### L100.0100 #### [facility] [address] [place], [address] CNCO Observed: 12/01/2017 Status: COMPLETED Source: [place] 12:00 AM [facility] REPOSITORY Letter Text Michael Garcia [address] [place] [id number] 12/01/2017 CCF #: [id number] Dear , Due to a change in [...] for you, please contact our office at [phone]. Thank you for choosing the [facility] as your Healthcare Provider . Sincerely, Internal Medicine Appointment Office BEDSIDE GLUCOSE Collected: 11/30/2017 Status: F Source: CHRISTOPHER 10:41 PM [facility] REPOSITORY TYPE CODE TESTS RESULT OUT OF REFERENCE UNITS RANGE LAB L501.080 70-110 mg/dL High BEDSIDE GLU 273 Result Comment: MANAGEMENT OF PATIENT CARE PER NURSING PROTOCOL Performed By: #### L501.080 #### [facility] Point of Care [address] [place] [address] BEDSIDE GLUCOSE Collected: 11/30/2017 Status: F Source: CHRISTOPHER 4:48 PM [facility] REPOSITORY TYPE CODE TESTS RESULT OUT OF REFERENCE UNITS RANGE LAB L501.080 70-110 mg/dL High BEDSIDE GLU 225 Result Comment: MANAGEMENT OF PATIENT CARE PER NURSING PROTOCOL Performed By: #### L501.080 #### [facility] Point of Care [address] [place], [place] [address] BEDSIDE GLUCOSE Collected: 11/30/2017 Status: F Source: CHRISTOPHER 11:45 AM [facility] REPOSITORY TYPE CODE TESTS RESULT OUT OF REFERENCE UNITS RANGE LAB L501.080 70-110 mg/dL High BEDSIDE GLU 211 Result Comment: MANAGEMENT OF PATIENT CARE PER NURSING PROTOCOL Performed By: #### L501.080 #### [facility] Point of Care [address] [place] [address] ABDOMEN/PELVIS WITHOUT Observed: 11/30/2017 Status: F Source: CHRISTOPHER CONT 7:43 AM [facility] REPOSITORY [facility] Imaging Services [address] [place] [address] Abdomen/Pelvis without Cont MR#: [id number] Acct: [id number] Name: MICHAEL GARCIA Rep #: [id number] : 1945 F 72 From: Javad Jalloh MD PCP: Mat Duffy MD Status: ADM IN Study: Abdomen/Pelvis without Cont Date of Exam: 11/30/17 Exam# [id number] Ordering Dr: Fahad Sesay MD STUDY: CT [...] , CC: Fahad Sesay; Mat Duffy MD [facility]: Signed BEDSIDE GLUCOSE Collected: 11/30/2017 Status: F Source: RUMNEY 6:53 AM [facility] REPOSITORY TYPE CODE TESTS RESULT OUT OF RANGE REFERENCE UNITS LAB L501.080 70-110 mg/dL Normal BEDSIDE GLU 98 Result Comment: MANAGEMENT OF PATIENT CARE PER NURSING PROTOCOL Performed By: #### L501.080 #### [facility] Point of Care [address] [place] [address] BASIC METABOLIC Collected: 11/30/2017 Status: F Source: CHRISTOPHER PROFILE (BMP) 5:22 AM [facility] REPOSITORY TYPE CODE TESTS RESULT OUT OF [...] GAP 9 Performed By: #### L500.2500 #### [facility] [address] [place], [place], [address] CBC W/DIFF, AUTOMATED Collected: 11/30/2017 Status: F Source: RUMNEY 5:22 AM [facility] REPOSITORY TYPE CODE TESTS RESULT OUT OF [...] Lymph 1.14 Performed By: #### L100.0100 #### [facility] [address] [place], [address] BEDSIDE GLUCOSE Collected: 11/29/2017 Status: F Source: RUMNEY 10:45 PM [facility] REPOSITORY TYPE CODE TESTS RESULT OUT OF REFERENCE UNITS RANGE LAB L501.080 70-110 mg/dL High BEDSIDE GLU 257 Result Comment: MANAGEMENT OF PATIENT CARE PER NURSING PROTOCOL Performed By: #### L501.080 #### [facility] Point of Care [address] [place] [address] BEDSIDE GLUCOSE Collected: 11/29/2017 Status: F Source: CHRISTOPHER 4:25 PM [facility] REPOSITORY TYPE CODE TESTS RESULT OUT OF REFERENCE UNITS RANGE LAB L501.080 70-110 mg/dL High BEDSIDE GLU 136 Result Comment: MANAGEMENT OF PATIENT CARE PER NURSING PROTOCOL Performed By: #### L501.080 #### [facility] Point of Care [address] [place] [address] BEDSIDE GLUCOSE Collected: 11/29/2017 Status: F Source: CHRISTOPHER 10:54 AM [facility] REPOSITORY TYPE CODE TESTS RESULT OUT OF REFERENCE UNITS RANGE LAB L501.080 70-110 mg/dL High BEDSIDE GLU 177 Result Comment: MANAGEMENT OF PATIENT CARE PER NURSING PROTOCOL Performed By: #### L501.080 #### [facility] Point of Care [address] [place] [address] TYPE AND SCREEN Collected: 11/29/2017 Status: F Source: RUMNEY 8:10 AM [facility] REPOSITORY Order Comment: CMV NEG? N Number [...] NEGATIVE Screen Performed By: #### B101.7450 #### [facility] [address] [place] [address], [address] RC Collected: 11/29/2017 Status: F Source: RUMNEY 8:10 AM [facility] REPOSITORY TYPE CODE TESTS RESULT OUT OF REFERENCE UNITS RANGE LAB U100.0000 [id number] TRANSFUSED PRODUCT: T AND S with Crossmatch, Red Cells COUNT: 1 Performed By: #### U100.0000 #### [facility] - refer to report for specific site RC Collected: 11/29/2017 Status: F Source: RUMNEY 8:10 AM [facility] REPOSITORY TYPE CODE TESTS RESULT OUT OF REFERENCE UNITS RANGE LAB U100.0000 [id number] TRANSFUSED PRODUCT: T AND S with Crossmatch, Red Cells COUNT: 1 Performed By: #### U100.0000 #### [facility] Laboratory - refer to report for specific site BEDSIDE GLUCOSE Collected: 11/29/2017 Status: F Source: RUMNEY 7:22 AM [facility] REPOSITORY TYPE CODE TESTS RESULT OUT OF RANGE REFERENCE UNITS LAB L501.080 70-110 mg/dL Normal BEDSIDE GLU 73 Result Comment: MANAGEMENT OF PATIENT CARE PER NURSING PROTOCOL Performed By: #### L501.080 #### [facility] Point of Care [address] [place] [address]. [place] [address] BEDSIDE GLUCOSE Collected: 11/29/2017 Status: F Source: CHRISTOPHER 7:01 AM [facility] REPOSITORY TYPE CODE TESTS RESULT OUT OF REFERENCE UNITS RANGE LAB L501.080 70-110 mg/dL Low BEDSIDE GLU 67 Result Comment: MANAGEMENT OF PATIENT CARE PER NURSING PROTOCOL Performed By: #### L501.080 #### [facility] Laboratory Point of Care [address] [place] [address] BEDSIDE GLUCOSE Collected: 11/29/2017 Status: F Source: CHRISTOPHER 6:40 AM [facility] REPOSITORY TYPE CODE TESTS RESULT OUT OF REFERENCE UNITS RANGE LAB L501.080 70-110 mg/dL Low alert BEDSIDE GLU 33 Result Comment: MANAGEMENT OF PATIENT CARE PER NURSING PROTOCOL Performed By: #### L501.080 #### [facility] Point of Care [address] [place] [address] CBC W/DIFF, AUTOMATED Collected: 11/29/2017 Status: F Source: CHRISTOPHER 5:24 AM [facility] REPOSITORY TYPE CODE TESTS RESULT OUT OF [...] 1.12 Performed By: #### L100.0100, L500.2500 #### [facility] [address] [place], [place], [address] BASIC METABOLIC Collected: 11/29/2017 Status: F Source: RUMNEY PROFILE (BMP) 5:24 AM [facility] REPOSITORY TYPE CODE TESTS RESULT OUT OF [...] 8 Performed By: #### L100.0100, L500.2500 #### [facility] [address] [place], [address] BEDSIDE GLUCOSE Collected: 11/28/2017 Status: F Source: CHRISTOPHER 9:23 PM [facility] REPOSITORY TYPE CODE TESTS RESULT OUT OF REFERENCE UNITS RANGE LAB L501.080 70-110 mg/dL High BEDSIDE GLU 246 Result Comment: MANAGEMENT OF PATIENT CARE PER NURSING PROTOCOL Performed By: #### L501.080 #### [facility] Point of Care [address] [place] [address] BEDSIDE GLUCOSE Collected: 11/28/2017 Status: F Source: CHRISTOPHER 5:14 PM [facility] REPOSITORY TYPE CODE TESTS RESULT OUT OF REFERENCE UNITS RANGE LAB L501.080 70-110 mg/dL High BEDSIDE GLU 243 Result Comment: MANAGEMENT OF PATIENT CARE PER NURSING PROTOCOL Performed By: #### L501.080 #### [facility] Point of Care [address] [place] [address] CHEST WITHOUT Observed: 11/28/2017 Status: F Source: CHRISTOPHER CONTRAST 12:45 PM [facility] REPOSITORY [facility] Imaging Services [address] [place] [address] Chest without Contrast MR#: [id number] Acct: [id number] Name: GARCIAMICHAEL Rep #: [id number] : 1945 F 72 From: Florencia Warren MD PCP: Mat Duffy MD Status: ADM IN Study: Chest without Contrast Date of Exam: 11/28/17 Exam# [id number] Ordering Dr: Viviana Childers [employer]C STUDY: CT CHEST WITHOUT CONTRAST REASON FOR [...] , Service support , CC: Viviana Childers [employer]; Mat Duffy MD Physician [facility]: Signed BEDSIDE GLUCOSE Collected: 11/28/2017 Status: F Source: CHRISTOPHER 11:35 AM [facility] REPOSITORY TYPE CODE TESTS RESULT OUT OF REFERENCE UNITS RANGE LAB L501.080 70-110 mg/dL High BEDSIDE GLU 238 Result Comment: MANAGEMENT OF PATIENT CARE PER NURSING PROTOCOL Performed By: #### L501.080 #### [facility] Point of Care [address] [place] [address] BEDSIDE GLUCOSE Collected: 11/28/2017 Status: F Source: CHRISTOPHER 7:46 AM [facility] REPOSITORY TYPE CODE TESTS RESULT OUT OF RANGE REFERENCE UNITS LAB L501.080 70-110 mg/dL Normal BEDSIDE GLU 110 Result Comment: MANAGEMENT OF PATIENT CARE PER NURSING PROTOCOL Performed By: #### L501.080 #### [facility] Point of Care [address] [place] [address] BASIC METABOLIC Collected: 11/28/2017 Status: F Source: CHRISTOPHER PROFILE (BMP) 4:15 AM [facility] REPOSITORY TYPE CODE TESTS RESULT OUT OF [...] GAP 7 Performed By: #### L500.2500 #### [facility] [address] [place], [place], [address] CBC W/DIFF, AUTOMATED Collected: 11/28/2017 Status: F Source: RUMNEY 4:15 AM [facility] REPOSITORY TYPE CODE TESTS RESULT OUT OF [...] Lymph 1.18 Performed By: #### L100.0100 #### [facility] [address] [place], [place], [address] CHEST PA AND LATERAL Observed: 11/28/2017 Status: F Source: CHRISTOPHER 12:00 AM [facility] REPOSITORY [facility] [place] [address] Chest PA and Lateral MR#: [id number] Acct: [id number] Name: MICHAEL GARCIA Rep #: [id number] : 1945 F 72 From: Brett Arcos MD PCP: Mat Duffy MD Status: ADM IN Study: Chest PA and Lateral Date of Exam: 11/28/17 Exam# [id number] Ordering Dr: Rocael Valencia MD STUDY: X-RAY [...] Brett Arcos MD at 9:06 EST Tel [phone], Service support , CC: Rocael Valencia MD; Mat Duffy MD Physician [facility]: Signed BEDSIDE GLUCOSE Collected: 11/27/2017 Status: F Source: CHRISTOPHER 9:54 PM [facility] REPOSITORY TYPE CODE TESTS RESULT OUT OF REFERENCE UNITS RANGE LAB L501.080 70-110 mg/dL High BEDSIDE GLU 195 Result Comment: MANAGEMENT OF PATIENT CARE PER NURSING PROTOCOL Performed By: #### L501.080 #### [facility] Point of Care [address] [place] [address] TROPONIN-I Collected: 11/27/2017 Status: F Source: CHRISTOPHER 7:55 PM [facility] REPOSITORY Order Comment: 'TROP' Serial specimen #1, #2, #3, or #4: 4 TYPE CODE TESTS RESULT OUT OF RANGE REFERENCE UNITS LAB L501.4010 <0.06 ng/mL Normal < 0.02 TROPONIN-I Result Comment: TROPONIN-I EXPECTED VALUES <0.05 NEGATIVE 0.06 - 0.59 AT RISK OF MS > OR = 0.60 SUGGEST MS Performed By: #### L501.4010 #### [facility] [address] [place], [address] BEDSIDE GLUCOSE Collected: 11/27/2017 Status: F Source: [place] 5:36 PM [facility] REPOSITORY TYPE CODE TESTS RESULT OUT OF REFERENCE UNITS RANGE LAB L501.080 70-110 mg/dL High BEDSIDE GLU 209 Result Comment: MANAGEMENT OF PATIENT CARE PER NURSING PROTOCOL Performed By: #### L501.080 #### [facility] Point of Care [address] [place] [address] POTASSIUM Collected: 11/27/2017 Status: F Source: [place] 4:45 PM [facility] REPOSITORY TYPE CODE TESTS RESULT OUT OF RANGE REFERENCE UNITS LAB L501.5600 3.5-5.1 mmol/L Normal K 4.2 Performed By: #### L501.5600 #### [facility] [address] [place], [address] TROPONIN-I Collected: 11/27/2017 Status: F Source: [place] 4[facility] PM [facility] Order Comment: 'TROP' Serial specimen #1, #2, #3, or #4: 3 TYPE CODE TESTS RESULT OUT OF RANGE REFERENCE UNITS LAB L501.4010 <0.06 ng/mL Normal 0.03 TROPONIN-I Result Comment: TROPONIN-I EXPECTED VALUES <0.05 NEGATIVE 0.06 - 0.59 AT RISK OF MS > OR = 0.60 SUGGEST MS Performed By: #### L501.4010 #### [facility] [address] [facility] [place], [address] CONSULTATION Observed: 11/27/2017 Status: F Source: [place] 4:39 PM [facility] REPOSITORY [facility] Medical Records Department [address] [place] [address] Consultation 11/27/17 1619 MR#: [id number] Acct: [id number] Name: MICHAEL GARCIA Rep #: [id number] : 1945 72 From: Reinier Lang MD PCP: Mat Duffy MD Status: ADM IN Y Location: ICU [id number] Problem List (1) Paroxysmal A-fib Status: Acute [...] Craniotomy. 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 Valencia. This note was generated with [employer] software. It may contain incorrect words, spelling, and punctuation that were not noted in checking the note before signing. 11/27/17 1639 <Electronically signed by Reinier Lang MD> Date Reinier Lang MD Cosigner Signature (if applicable): Date CC: Rocael Valencia MD; Darien Mcclendon MD; Ortiz Markham MD; Mat Duffy MD Signed ECHOCARDIOGRAM COMPLETE Observed: 11/27/2017 Status: F Source: [place] 3:33 PM [facility] REPOSITORY [facility] Cardiovascular Services [address] [place] [address] Echo Complete W/ Contrast 11/27/17 1433 MR#: [id number] Acct: [id number] Name: MICHAEL GARCIA Rep #: [id number] : 1945 72 From: Reinier Lang MD [...] Dictated: 11/27/17 1433 Date Transcribed: 11/27/17 1532 Physician Locums Urgent Care: Signed CONSULTATION Observed: 11/27/2017 Status: F Source: [place] 3:27 PM [facility] REPOSITORY [facility] Medical Records Department [address] [place] [address] Consultation 11/27/17 1246 MR#: [id number] Acct: [id number] Name: MICHAEL GARCIA Rep #: [id number] : 1945 72 From: Viviana RICHARDC PCP: Mat Duffy MD Status: ADM IN Y Location: ICU [id number] ADDENDUM by Rocael Valencia MD on 11/27/17 [...] noted in 2016. Inpatient E AND M: 10504 Init Hosp L3 11/27/17 1527 <Electronically signed [...] 72 year old F known to pulmonary [facility], with past medical history as [...] Craniotomy. 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 This note was generated with [employer] software. It may contain incorrect words, spelling, and punctuation that were not noted in checking the note before signing. 11/27/17 1408 <Electronically signed by Viviana JENSEN> Date Viviana JENSEN Cosigner Signature (if applicable): Date CC: Rocael Valencia MD; Ortiz Markham MD; Mat Duffy MD Signed BEDSIDE GLUCOSE Collected: 11/27/2017 Status: F Source: [place] 12:12 PM [facility] REPOSITORY TYPE CODE TESTS RESULT OUT OF REFERENCE UNITS RANGE LAB L501.080 70-110 mg/dL High BEDSIDE GLU 194 Result Comment: MANAGEMENT OF PATIENT CARE PER NURSING PROTOCOL Performed By: #### L501.080 #### [facility] Point of Care [address] [place] [address] HISTORY AND PHYSICAL Observed: 11/27/2017 Status: F Source: [place] EXAM 12:01 PM [facility] REPOSITORY [facility] Medical Records Department [address] [place] [address] History and Physical 11/27/17 0904 MR#: [id number] Acct: [id number] Name: MICHAEL GARCIA Rep #: [id number] : 1945 72 From: Fahad Sesay MD PCP: Mat Duffy MD Status: ADM IN Y Location: ICU [id number] Problem List (1) HTN (hypertension) Status: Chronic [...] 3+ bacteria. EKG revealed sinus tachycardia, normal MO interval, normal QRS, no acute ischemic changes [...] Craniotomy. 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 This note was generated with [employer] dictation software. It may contain incorrect words, spelling, and punctuation that were not noted in checking the note before signing. Code Visit Inpatient E AND M: 75052 Init Hosp L3 11/27/17 1201 <Electronically signed by Fahad Sesay MD> Date Fahad Sesay MD Cosigner Signature: Date (if applicable) CC: Fahad Sesay; Mat Duffy MD Signed TROPONIN-I Collected: 11/27/2017 Status: F Source: [place] 9:30 AM [facility] REPOSITORY Order Comment: 'TROP' Serial specimen #1, #2, #3, or #4: 2 TYPE CODE TESTS RESULT OUT OF RANGE REFERENCE UNITS LAB L501.4010 <0.06 ng/mL Normal 0.04 TROPONIN-I Result Comment: TROPONIN-I EXPECTED VALUES <0.05 NEGATIVE 0.06 - 0.59 AT RISK OF MS > OR = 0.60 SUGGEST MS Performed By: #### L501.4010 #### [facility] [address] [place], [address] PROTHROMBIN TIME W/INR Collected: 11/27/2017 Status: F Source: [place] 9:30 AM [facility] REPOSITORY TYPE CODE TESTS RESULT OUT OF RANGE REFERENCE UNITS LAB L300.4150 11.7-14.9 SECONDS High PROTIME 16.0 LAB L300.4200 Normal INR 1.3 Performed By: #### L300.3900, L300.4310 #### [facility] [address] [place], [address] PARTIAL THROMBOPLAST Collected: 11/27/2017 Status: F Source: [place] TIME 9:30 AM [facility] REPOSITORY TYPE CODE TESTS RESULT OUT OF REFERENCE UNITS RANGE LAB L300.4310 24.1-36.2 Seconds High PTT 48.9 Performed By: #### L300.3900, L300.4310 #### [facility] [address] [place], [address] MAGNESIUM Collected: 11/27/2017 Status: F Source: [place] 9:30 AM [facility] REPOSITORY TYPE CODE TESTS RESULT OUT OF RANGE REFERENCE UNITS LAB L501.5200 1.6-2.6 mg/dL Normal MG 2.2 Result Comment: Please note revised Magnesium reference range effective 2017. Performed By: #### L501.5200, L501.9520 #### [facility] [address] [place], [address] THYROID STIM HORMONE Collected: 11/27/2017 Status: F Source: [place] (TSH) 9:30 AM [facility] REPOSITORY TYPE CODE TESTS RESULT OUT OF RANGE REFERENCE UNITS LAB L501.9520 0.358-3.74 uIU/mL Normal TSH 0.56 Performed By: #### L501.5200, L501.9520 #### [facility] [address] [place], [address] LIVER PROFILE Collected: 11/27/2017 Status: F Source: [place] 9:30 AM [facility] REPOSITORY Order Comment: Comments: from blood in [...] 0.12 Performed By: #### L500.3400, L504.2610 #### [facility] [address] [facility] [place], [address] LDH Collected: 11/27/2017 Status: F Source: [place] 9:30 AM [facility] REPOSITORY Order Comment: Comments: from blood in lab. TYPE CODE TESTS RESULT OUT OF RANGE REFERENCE UNITS LAB L504.2610 84-246 U/L Normal LDH 221 Performed By: #### L500.3400, L504.2610 #### [facility] [address] [facility] [place], [address] CHEST Observed: 11/27/2017 Status: F Source: [place] 9:03 AM [facility] REPOSITORY [facility] Imaging Services [address] [place] [address] Chest MR#: [id number] Acct: [id number] Name: MICHAEL GARCIA Rep #: [id number] : 1945 F 72 From: Brett Arcos MD PCP: Mat Duffy MD Status: ADM IN Study: Chest Date of Exam: 11/27/17 Exam# [id number] Ordering Dr: Fahad Sesay MD STUDY: SUPERFICIAL [...] Brett Arcos MD at 15:18 EST Tel [phone], Service support , CC: Fahad Sesay; Mat Duffy MD Physician Locums Urgent Care: Signed EMERGENCY DEPARTMENT Observed: 11/27/2017 Status: F Source: [place] SUMMARY 7:53 AM [facility] REPOSITORY [facility] Medical Records Department [address] [place], [place] [address] [address] Emergency Department Summary 11/27/17 0723 MR#: [id number] Acct: [id number] Name: MICHAEL GARCIA Rep #: [id number] : 1945 72 From: Trevor Hamm MD [...] EKG changes This note was generated with [employer] software. It may contain incorrect words, spelling, [...] your Primary Care Provider. Call [facility] ([phone]) or report to the closest Emergency Room. Call 911 if necessary. 11/27/17 0753 <Electronically signed by Trevor Hamm MD> Date Trevor Hamm MD Cosigner Signature (If Indicated): Date CC: Mat Duffy MD URINALYSIS, COMPLETE Collected: 11/27/2017 Status: F Source: [place] 6:40 AM [facility] REPOSITORY Order Comment: Microscopic field is filled. Other elements may be obscured. How was Urine Obtained? VARNISHER APPRENTICE TO SPECIFY TYPE CODE TESTS RESULT OUT [...] URINE SEEN Performed By: #### L400.0001 #### [facility] [address] [facility] [place], [place], [address] Observed: 11/27/2017 Status: F Source: [place] LEGIONELLA ANTIGEN 6:40 AM [facility] URINE REPOSITORY Legionella, UR Legionella Antigen result interpretation: Negative Presumptive negative for Legionella pneumophila serogroup 1 antigen in urine, suggesting no recent or current infection. Legionella Ag, Urine Negative (See interpretation below) Performed By: #### M300.4500 #### [facility] [address] [facility] [place], [address] STREP Observed: 11/27/2017 Status: F Source: [place] PNEUMONIAE ANTIG(UR,CSF) 6:40 AM [facility] REPOSITORY S pneumo Ag URINE INTERPRETATION Negative Urine Presumptive negative for pneumococcal pneumonia, suggesting no current or recent pneumococcal infection. Infection due to S pneumoniae cannot be ruled out since the antigen present in the sample may be below the detection limit of the test. Strep pneumo Test Negative URINE (See interpretation below) Performed By: #### M300.4600 #### [facility] [address] [facility] [place], [place], [address] Observed: 11/27/2017 Status: F Source: [place] CULTURE, URINE 6:40 AM [facility] REPOSITORY Order Date: 11/27/17 Urine Culture ORGANISM 1: Klebsiella pneumoniae sp pneum [place] Count >100,000 Klebsiella pneumoniae sp pneum: REACTION [...] <=20 S (NF) indicates non-formulary drug at [facility]. Approval by Infectious Disease Specialist required before non-formulary drugs may be ordered and/or dispensed. Performed By: #### M100.0650 #### [facility] [address] [place], [place], [address] Observed: 11/27/2017 Status: F Source: RUMNEY CULTURE, BLOOD (WB) 6:35 AM [facility] REPOSITORY BC No growth in 5 days. Performed By: #### M200.1000 #### [facility] [address] [place], [place], [address] Observed: 11/27/2017 Status: F Source: [place] INFLUENZA A+B (RAPID 6:19 AM [facility]) REPOSITORY FLU A/B Rapid Negative test results should be confirmed by culture. Order Rapid Viral Culture for Influenzae A+B ([id number]) if clinically indicated. Influenza Ag, Direct Presumptive NEGATIVE for Influenza A/B Antigen (See Note) Performed By: #### M101.0101 #### [facility] [address] [place], [place], [address] CHEST 1 VIEW Observed: 11/27/2017 Status: F Source: [place] (PORTABLE) 6:11 AM [facility] REPOSITORY [facility] Imaging Services [address] [place] [address] Chest 1 View (Portable) MR#: [id number] Acct: [id number] Name: GARCIAMICHAEL Rose Rep #: [id number] : 1945 F 72 From: Selina Pickard MD PCP: Mat Duffy MD Status: REG ER Study: Chest 1 View (Portable) Date of Exam: 11/27/17 Exam# [id number] Ordering Dr: Trevor Hamm MD STUDY: X-RAY [...] CC: Trevor Hamm MD; Mat Duffy MD Physician Locums Urgent Care: Signed CBC W/DIFF, AUTOMATED Collected: 11/27/2017 Status: F Source: [place] 6:05 AM [facility] REPOSITORY TYPE CODE TESTS RESULT OUT OF [...] Lymph 0.75 Performed By: #### L100.0100 #### [facility] [address] [facility] [place], [place], [address] LACTIC ACID Collected: 11/27/2017 Status: F Source: [place] 6:05 AM [facility] REPOSITORY Order Comment: Yes/No query for Sepsis Lactate Rule Y TYPE CODE TESTS RESULT OUT OF RANGE REFERENCE UNITS LAB L503.6005 0.4-2.0 mmol/L Normal LACTIC ACID 1.4 Performed By: #### L503.6005 #### [facility] [address] [facility] [place], [place], [address] BASIC METABOLIC Collected: 11/27/2017 Status: F Source: [place] PROFILE (BMP) 6:05 AM [facility] REPOSITORY Order Comment: 'TROP' Serial specimen #1, [...] 7 Performed By: #### L500.2500, L501.4010 #### [facility] [address] [facility] [place], [place], [address] TROPONIN-I Collected: 11/27/2017 Status: F Source: [place] 6:05 AM [facility] REPOSITORY Order Comment: 'TROP' Serial specimen #1, #2, #3, or #4: 1 TYPE CODE TESTS RESULT OUT OF RANGE REFERENCE UNITS LAB L501.4010 <0.06 ng/mL Normal < 0.02 TROPONIN-I Result Comment: TROPONIN-I EXPECTED VALUES <0.05 NEGATIVE 0.06 - 0.59 AT RISK OF MS > OR = 0.60 SUGGEST MS Performed By: #### L500.2500, L501.4010 #### [facility] [address] [facility] [place], [place], [address] Observed: 11/27/2017 Status: F Source: [place] CULTURE, [...] Growth Growth Performed By: #### M200.1000 #### [facility] [place], [address] PROGRESS Observed: 11/10/2017 Status: COMPLETED Source: [place] 4:08 PM [facility] REPOSITORY HNO ID: [id number] Author: Evangelina Mckeon) Service: (none) Author Type: Physician Scientific Systems Analyst Type: Progress Notes Filed: 11/14/2017 5:27 PM [...] Type 2 diabetes mellitus with renal manifestations ([facility]) 01/19/2016 Dr. Romeo, nephrology PAST SURGICAL HISTORY Procedure Laterality Date - ACHILLES TENDON SURGERY HX Right 1995 - BREAST BIOPSY CORE Left 2013 benign - [facility] w/bx [facility] - EGD W/O OR W/BRUSH/WASH 10/27/2017 EGD w/bx [facility] - LAPAROSCOPIC CHOLEYCYSTECTOMY Cholecystectomy, lap - REMOVAL [...] activity: No Social History Narrative Moved from [place] 2 years ago. Lives w/ spouse. Does [...] with more than 50% of the total sdso-fs-fgxz time of the visit in counseling / coordination of care. Evangelina Boyd, PA-C PROGRESS Observed: 11/07/2017 Status: COMPLETED Source: [place] 10:24 AM [facility] REPOSITORY O ID: [id number] Author: Bereket Hammer Service: (none) Author Type: Nurse Practitioner Type: Progress Notes Filed: 11/07/2017 12:14 PM Note Text: Michael Garcia a 71 year old female who is returning for follow up regarding iron deficiency anemia. I saw the patient in consultation on 10/15/17. That note has been reviewed. . The patient was seen by Dr. Nielson for upper endoscopy and colonoscopy 10/27/17 at [facility]. The procedure and pathology reports have been [...] EGD W/O OR W/BRUSH/WASH 10/27/2017 EGD w/bx [facility] - LAPAROSCOPIC CHOLEYCYSTECTOMY Cholecystectomy, lap - REMOVAL [...] to formulate the plan. Bereket Hammer RN COMPENSATION ADMINISTRATOR ALLERGIES ALLERGIES DATE TYPE / CODE NAME / CODE REACTION SEVERITY SOURCE 10/21/2018 Drug No Known Unknown [facility] Allergy/416 Allergies/F11369 Hospital 360673(SNOM 0388(RXNORM) Repository ED CT) NG/42929802 NO KNOWN [facility] 6(SNOMED ALLERGIES [facility]) Repository Drug NO KNOWN [facility] Class/35039 ALLERGIES [facility] 1003(SNOMED Repository CT) ENCOUNTERS ENCOUNTERS ADMIT/DISCHARGE ACCOUNT NUMBER ADMITTING ENCOUNTER LOCATION SOURCE CLASS 10/28/2018/10/28/19 [id number] Ambulatory BMSBuilding: [place] 19 BMS.[facility] Repository 10/23/2018 [id number] Ambulatory [facility] ding:MEDOUT Repository 10/22/2018 [id number] Ambulatory [facility] ding:MEDOUT Repository 10/21/2018 [id number] Ambulatory [facility] ding:MEDOUT Repository 10/21/2018/10/21/19 [id number] Ambulatory BMSBuilding: [place] 19 BMS.[facility] Repository 10/01/2018 [id number] Ambulatory [facility] ding: Repository 09/18/2018 [id number] Ambulatory [facility] ding:LAB Repository 09/09/2018/09/09/20 [id number] Ambulatory BMSBuilding: [place] 18 BMS.[facility] Repository 09/09/2018/09/09/20 [id number] Ambulatory BMSBuilding: [place] 18 BMS.[facility] Repository 09/09/2018/09/09/20 [id number] Ambulatory BMSBuilding: [place] 18 BMS.[facility] Repository 08/10/2018 [id number] [facility] Repository 07/16/2018 [id number] [facility]LAB Repository 07/16/2018 [id number] [facility] Repository 07/03/2018/07/05/20 [id number] Ambulatory [place] Hospital ding:WC Repository 06/24/2018 [id number] [facility] ding:LAB.FUT Repository URE 06/09/2018/06/09/20 [id number] Ambulatory [place] Hospital ding:LAB Repository 06/04/2018/06/04/20 [id number] Ambulatory BMSBuilding: [place] 18 BMS.[facility] Repository 06/03/2018 [id number] [facility] ding:LAB.FUT Repository URE 06/02/2018 [id number] [facility] ding:LAB.[facility] Repository URE 06/01/2018/06/08/20 [id number] Ambulatory [place] [address] Hospital ding:LAB Repository 05/25/2018 [id number] [facility]LAB Repository 05/19/2018/05/19/20 [id number] Ambulatory BMSBuilding: [place] 18 BMS.[facility] Repository 05/19/2018 [id number] [facility] ding[facility] Repository 05/19/2018 [id number] Ambulatory BMSBuilding: [place] [facility] Hospital Repository 05/13/2018/05/13/20 [id number] Ambulatory BMSBuilding: [place] 18 BMS.[facility] Repository 05/12/2018 [id number] [facility]LAB Repository 05/07/2018 [id number] [facility] ding[facility]LAB Repository 04/28/2018/04/28/20 [id number] Ambulatory BMSBuilding: [place] 18 BMS.[facility] Repository 04/21/2018 [id number] Ambulatory [facility] ding:PSN Repository 04/21/2018 [id number] [facility] 04/16/2018 [id number] Ambulatory BMSBuilding: [place] BMS.[facility] Repository 04/07/2018/04/07/20 [id number] Ambulatory BMSBuilding: [place] 18 BMS.[facility] Repository 04/07/2018/04/07/20 [id number] Ambulatory BMSBuilding: [place] 18 BMS.[facility] Repository 04/02/2018/04/02/20 [id number] Ambulatory [address] ding:[facility] Repository 04/02/2018 [id number] Ambulatory BMSBuilding: [place] BMS.[facility] Repository 04/02/2018 [id number] Ambulatory BMSBuilding: [facility] Repository 03/11/2018 [id number] Ambulatory BMSBuilding: [place] BMS.[facility] Repository 03/05/2018/03/06/20 [id number] Ambulatory [address] Repository 03/05/2018/03/05/20 [id number] Ambulatory BMSBuilding: [place] 18 BMS.[facility] Repository 03/01/2018/03/03/20 [id number] Jen Rosales Inpatient [address] ding:[facility] Repository : [id number]: 1 03/01/2018 [id number] Jen Rosales Ambulatory BMSBuilding: [place] BMS.[facility] Repository 03/01/2018 [id number] Jen Rosales Ambulatory BMSBuilding: [place] BMS.[facility] Repository 03/01/2018/03/03/20 [id number] Ambulatory BMSBuilding: [place] Repository 03/01/2018/03/03/20 [id number] Ambulatory BMSBuilding: [address] Repository 03/01/2018/03/03/20 [id number] Ambulatory BMSBuilding: [place] 18 [facility] Repository 02/26/2018 [id number] Ambulatory [facility] ding:[facility] Repository 02/26/2018 [id number] Ambulatory BMSBuilding: [place] BMS.CF.[facility] Repository 02/11/2018/02/17/20 [id number] Ambulatory [address] Repository 02/10/2018 [id number] Ambulatory [facility] ding:PSN Repository 01/22/2018/01/23/20 [id number] Ambulatory BMSBuilding: [place] 18 [facility] Repository 01/19/2018/01/23/20 [id number] [place], Inpatient [address] ding:[facility] Repository : [id number]: 1 01/19/2018 [id number] [place], Ambulatory BMSBuilding: [place] BMS.[facility] Repository 01/19/2018 [id number] [place], Ambulatory BMSBuilding: [place] BMS.[facility] Repository 01/19/2018 [id number] [place], Ambulatory BMSBuilding: [place] Ko[place] [facility] Repository 01/19/2018 [id number] [place], Ambulatory BMSBuilding: [place] BMS.CF.[facility] Repository 01/19/2018 [id number] [place], Ambulatory BMSBuilding: [place] BMS.[facility] Repository 01/19/2018 [id number] [place], Ambulatory BMSBuilding: [place] BMS.[facility] Repository 01/19/2018 [id number] [place], Ambulatory BMSBuilding: [place] [facility] Repository 01/19/2018 [id number] [place], Ambulatory BMSBuilding: [place] BMS.CF.[facility] Repository 01/19/2018 [id number] [place], Ambulatory BMSBuilding: [place] BMS.CF.[facility] Repository 01/19/2018 [id number] [place], Ambulatory BMSBuilding: [place] BMS.[facility] Repository 01/08/2018 [id number] Ambulatory [facility] [facility] ding:MEDOUTP Repository 01/01/2018/01/02/20 [id number] Ambulatory BMSBuilding: [place] 18 BMS.[facility] Repository 12/23/2017/12/26/19 [id number] Ambulatory [address] Repository 12/22/2017 [id number] Ambulatory [facility] ding:LAB Repository 12/12/2017/12/18/19 [id number] LASHELL, Inpatient [place] 18 BIANCA NASEEM Encounter [facility] Repository 12/12/2017/12/18/19 [id number] LASHELL, Inpatient [facility] 18 BIANCA [facility] MEDICAL Repository CENTERBuildi nRoom: 8121Bed: 12/12/2017/12/13/19 [id number] Emergency [address] ding:ED Repository 12/05/2017/12/10/19 [id number] Ambulatory BMSBuilding: Christopher 18 [facility] Repository 11/27/2017/12/10/19 [id number] [place], Inpatient [place] [facility]PCURoom Repository : [id number]: 1 11/27/2017 [id number] [place], Ambulatory BMSBuilding: [place] Ghasem BMS.[facility] Repository 11/27/2017 [id number] [place], Ambulatory BMSBuilding: Christopher Ghasem [facility] Repository 11/27/2017 [id number] [place], Ambulatory BMSBuilding: [place] Ghasem BMS.CF.[facility] Repository 11/27/2017 [id number] [place], Ambulatory BMSBuilding: [place] Ghasem BMS.CF.[facility] Repository 11/27/2017 [id number] [place], Ambulatory BMSBuilding: Christopher Ghasem BMS.[facility] Repository 11/27/2017 [id number] [place], Ambulatory BMSBuilding: Christopher Ghasem [facility] Repository 11/27/2017 [id number] [place], Ambulatory BMSBuilding: Christopher Ghasem BMS..[facility] Repository 11/27/2017 [id number] [place], Ambulatory BMSBuilding: [place] Ghasem BMS..[facility] Repository 11/27/2017 [id number] [place], Ambulatory BMSBuilding: [place] Ghasem BMS.[facility] Repository 11/27/2017 [id number] [place], Ambulatory BMSBuilding: Christopher Ghasem BMS.CF.[facility] Repository 11/27/2017 [id number] [place], Ambulatory BMSBuilding: Christopher Ghasem BMS.[facility] Repository 11/27/2017 [id number] [place], Ambulatory BMSBuilding: [place] Ghasem BMS..[facility] Repository 11/27/2017 [id number] [place], Ambulatory BMSBuilding: [place] Ghasem [facility] Repository 11/27/2017 [id number] [place], Ambulatory BMSBuilding: Christopher Ghasem BMS.[facility] Repository 11/27/2017 [id number] [place], Ambulatory BMSBuilding: Christopher Ghasem BMS..[facility] Repository 11/27/2017 [id number] [place], Ambulatory BMSBuilding: [place] Ghasem [facility] Repository 11/27/2017 [id number] [place], Ambulatory BMSBuilding: [place] Ghasem BMS.[facility] Repository 11/27/2017 [id number] [place], Ambulatory BMSBuilding: [place] Ghasem BMS..[facility] Repository 11/27/2017 [id number] [place], Ambulatory BMSBuilding: [place] Ghasem [facility] Repository 11/27/2017 [id number] [place], Ambulatory BMSBuilding: Christopher Ghasem BMS.[facility] Repository 11/27/2017 [id number] [place], Ambulatory BMSBuilding: [place] Ghasem BMS.CF.[facility] Repository 11/27/2017 [id number] [place], Ambulatory BMSBuilding: Christopher Ghasem [facility] Repository 11/27/2017 [id number] [place], Ambulatory BMSBuilding: Christopher Ghasem BMS..[facility] Repository 11/27/2017 [id number] [place], Ambulatory BMSBuilding: [place] Ghasem BMS.[facility] Repository 11/27/2017 [id number] [place], Ambulatory BMSBuilding: Christopher Ghasem [facility] Repository 11/27/2017 [id number] [place], Ambulatory BMSBuilding: Christopher Ghasem BMS.CF.[facility] Repository 11/27/2017 [id number] [place], Ambulatory BMSBuilding: Christopher Ghasem BMS.[facility] Repository 11/27/2017 [id number] [place], Ambulatory BMSBuilding: [place] Ghasem BMS.[facility] Repository 11/27/2017 [id number] [place], Ambulatory BMSBuilding: [place] Ghasem BMS.CF.[facility] Repository 11/27/2017 [id number] [place], Ambulatory BMSBuilding: [place] Ghasem BMS.[facility] Repository 11/27/2017 [id number] [place], Ambulatory BMSBuilding: [place] Ghasem [facility] Repository 11/27/2017 [id number] [place], Ambulatory BMSBuilding: [place] Ghasem BMS.CF.[facility] Repository 11/27/2017 [id number] [place], Ambulatory BMSBuilding: [place] Ghasem BMS.[facility] Repository 11/27/2017 [id number] [place], Ambulatory BMSBuilding: Christopher Ghasem BMS.[facility] Repository 11/27/2017/12/10/19 [id number] Ambulatory BMSBuilding: [address] Repository 11/27/2017/12/10/19 [id number] Ambulatory BMSBuilding: [address] Repository 11/27/2017/12/10/19 [id number] Ambulatory BMSBuilding: [address] Repository 11/26/2017/11/26/19 [id number] Ambulatory [place] ding:OT Repository 11/07/2017/11/07/19 [id number] Ambulatory [address] Repository 11/07/2017/11/07/19 [id number] Ambulatory [address] Repository PAYERS PAYERS ENCOUNTER GUARANTOR PAYER SUBSCRIBER SOURCE 10/28/2018 MICHAEL Robles Primary MICHAEL Diehl [id number] Insurance:HUMANA MCCORMICKDOB: [place]icy [id number] Number: Repository 37478Wlz: 850 [id number] [phone] () Date:5742-52-38XU [address] [place] [address]BE: 10/28/2018 Secondary NOT GIVENUNK Christopher Insurance:SELF PAY [facility] Number: Effective Repository Date:2018-10-26 10/23/2018 JEY Walker Primary MICHAEL Diehl [id number] Insurance:HUMANA MCCORMICKDOB: [place] PPOPolicy [id number] Number: Repository [address]Nlp: 850 [id number] [phone] () Date:0646-18-31AF [address] [address]GH: 10/23/2018 Secondary NOT GIVENUNK [place] Insurance:SELF PAY [facility] Number: Effective Repository Date:2018-10-21 10/22/2018 JEY Walker Primary MICHAEL Diehl [id number] Insurance:HUMANA MCCORMICKDOB: [place] PPOPolicy [id number] Number: Repository 18183Gun: 850 [id number] [phone] () Date:2128-52-27YF[address] [address]NO: 10/22/2018 Secondary NOT GIVENUNK [place] Insurance:SELF PAY [facility] Number: Effective Repository Date:2018-10-21 10/21/2018 JEY Walker Primary MICHAEL Robles [place] [id number] Insurance:HUMANA MCCORMICKDOB: [place] PPOPolicy [id number] Number: Repository 519[address]Yau: 850 [id number] [phone] (HP) Date:3430-48-99TK [address] [address]SF: 10/21/2018 Secondary NOT GIVENUNK [place] Insurance:SELF PAY [facility] Number: Effective Repository Date:2018-10-21 10/21/2018 MICHAEL Robles Primary MICHAEL Robles Christopher [id number] Insurance:HUMANA MCCORMICKDOB: [place] PPOPolicy [id number] Number: Repository [address]Uyt: 850 [id number] [phone] (HP) Date:3865-62-53HD [place] 6676312[address]WP: 10/21/2018 Secondary NOT GIVENUNK Christopher Insurance:SELF PAY [facility] Number: Effective Repository Date:2018-10-20 10/01/2018 JEY Walker Primary MICHAEL Robles [place] [id number] Insurance:HUMANA MCCORMICKDOB: [place] PPOPolicy [id number] Number: Repository 55388Kes: 850 [id number] [phone] () Date:7550-64-99LV [address] [place] [address]WY: 10/01/2018 Secondary NOT GIVENUNK Christopher Insurance:SELF PAY [facility] Number: Effective Repository Date:2018-08-25 09/18/2018 JEY Walker Primary MICHAEL Robles [place] [id number] Insurance:HUMANA MCCORMICKDOB: [place] PPOPolicy [id number] [place] [address] Number: Repository 600[address]Ttw: 850 [id number] [phone] () Date:3017-17-52LH [address] [address]SO: 09/18/2018 Secondary NOT GIVENUNK [place] Insurance:SELF PAY [facility] Number: Effective Repository Date:2018-09-18 09/09/2018 JEY Walker Primary MICHAEL Diehl [id number] Insurance:HUMANA MCCORMICKDOB: [place] PPOPolicy [id number] Number: Repository 74[address]Rbx: 850 [id number] [phone] () Date:3950-21-23TQ [address] [address]MU: 09/09/2018 Secondary NOT GIVENUNK [place] Insurance:SELF PAY [facility] Number: Effective Repository Date:2018-09-08 09/09/2018 JEY Walker Primary MICHAEL Diehl [id number] Insurance:HUMANA MCCORMICKDOB: [place] PPOPolicy [id number] Number: Repository [address]23[address]Bcy: 850 [id number] [phone] () Date:9967-71-43FH [address] [address]GT: 09/09/2018 Secondary NOT GIVENUNK Christopher Insurance:SELF PAY [facility] Number: Effective Repository Date:2018-09-09 09/09/2018 JEY Walker Primary MICHAEL Diehl [id number] Insurance:HUMANA MCCORMICKDOB: [place] PPOPolicy [id number] Number: Repository [address]Uho: (986) [id number] [phone] () Date:7340-68-37RL [address] [address]SX: 09/09/2018 Secondary NOT GIVENUNK [place] Insurance:SELF PAY [facility] Number: Effective Repository Date:2018-09-02 08/10/2018 JEY S Primary MICHAEL Diehl [id number] Insurance:HUMANA MCCORMICKDOB: [place] PP[place]icy [id number] Number: Repository 148[address]Rzc: 850 [id number] [phone] (HP) Date:7338-06-23PL [address] [address]CJ: 08/10/2018 Secondary NOT GIVENUNK Christopher Insurance:SELF PAY [facility] Number: Effective Repository Date:2018-08-10 07/16/2018 JEY S Primary MICHAEL Robles [place] [id number] Insurance:HUMANA MCCORMICKDOB: [place] PPOPolicy [id number] Number: Repository 16571Rcd: (850 [id number] [phone] (HP) Date:3643-19-63KY [address] [address]XW: 07/16/2018 Secondary NOT GIVENUNK Christopher Insurance:SELF PAY [facility] Number: Effective Repository Date:2018-07-08 07/16/2018 JEY S Primary MICHAEL Robles [place] [id number] Insurance:HUMANA MCCORMICKDOB: [place] PPOPolicy [id number] Number: Repository [address]Kip: (850 [id number] [phone] (HP) Date:3540-53-08ES [address] [address]LK: 07/16/2018 Secondary NOT GIVENUNK Christopher Insurance:SELF PAY [facility] Number: Effective Repository Date:2018-07-06 07/03/2018 JEY S Primary MICHAEL Robles [place] [id number] Insurance:HUMANA MCCORMICKDOB: [place] PPOPolicy [id number] Number: Repository 00755Uxv: 850 [id number] [phone] (HP) Date:3991-22-54FD [address] [address]ZL: 07/03/2018 Secondary NOT GIVENUNK [place] Insurance:SELF PAY [facility] Number: Effective Repository Date:2018-06-30 06/24/2018 JEY Walker Primary MICHAEL Diehl [id number] Insurance:HUMANA MCCORMICKDOB: [place] PPOPolicy [id number] Number: Repository 16301Unv: 850 [id number] [phone] () Date:9095-94-25ZR [place] 667[address]12-[address]WP: 06/24/2018 Secondary NOT GIVENUNK Christopher Insurance:SELF PAY [facility] Number: Effective Repository Date:2018-05-25 06/09/2018 JEY Walker Primary MICHAEL Gleasonoster [id number] Insurance:HUMANA MCCORMICKDOB: [place] PPOPolicy [id number] Number: Repository [address]Yqj: 850 [id number] [phone] () Date:4412-27-48[place] [address]WP: 06/09/2018 Secondary NOT GIVENUNK Christopher Insurance:SELF PAY [facility] Number: Effective Repository Date:2018-06-09 06/04/2018 JEY Walker Primary MICHAEL Diehl [id number] Insurance:HUMANA MCCORMICKDOB: [place] PPOPolicy [id number] Number: Repository [address]Xku: (850 [id number] [phone] () Date:7993-32-12BC[address] [address]NQ: 06/04/2018 Secondary NOT GIVENUNK [place] Insurance:SELF PAY [facility] Number: Effective Repository Date:2018-06-04 06/03/2018 JEY Wakler Primary MICHAEL Diehl [id number] Insurance:HUMANA MCCORMICKDOB: [place] PPOPolicy [id number] Number: Repository 13015Fan: (675) [id number] [phone] (HP) Date:1694-56-55HJ [address] [address]JP: 06/03/2018 Secondary NOT GIVENUNK [place] Insurance:SELF PAY [facility] Number: Effective Repository Date:2018-06-03 06/02/2018 JEY S Primary MICHAEL Diehl [id number] Insurance:HUMANA MCCORMICKDOB: [place] PPOPolicy [id number] Number: Repository [address]Ura: 850 [id number] [phone] () Date:5350-95-17KM [address] [address]UX: 06/02/2018 Secondary NOT GIVENUNK Christopher Insurance:SELF PAY [facility] Number: Effective Repository Date:2018-05-25 06/01/2018 JEY S Primary MICHAEL Gleasonoster [id number] Insurance:HUMANA MCCORMICKDOB: [place] PPOPolicy [id number] Number: Repository 11012Tem: 850 [id number] [phone] () Date:7441-25-14YY [address] [address]LZ: 06/01/2018 Secondary NOT GIVENUNK [place] Insurance:SELF PAY [facility] Number: Effective Repository Date:2018-05-19 05/25/2018 JEY S Primary MICHAEL Diehl [id number] Insurance:HUMANA MCCORMICKDOB: [place] PPOPolicy [id number] Number: Repository [address]Puh: (436) [id number] [phone] () Date:4702-28-59MK [address] [address]VC: 05/25/2018 Secondary NOT GIVENUNK Christopher Insurance:SELF PAY [facility] Number: Effective Repository Date:2018-05-25 05/19/2018 Jey S Primary MICHAEL Diehl [id number] Insurance:HUMANA MCCORMICKDOB: [place] PPOPolicy [id number] Number: Repository [address]Bgq: (850 [id number] [phone] (HP) Date:8251-05-58WH [address] [address]YU: 05/19/2018 Secondary NOT GIVENUNK Christopher Insurance:SELF PAY [facility] Number: Effective Repository Date:2018-04-28 05/19/2018 Jey S Primary MICHAEL Robles Christopher [id number] Insurance:HUMANA MCCORMICKDOB: [place] PPOPolicy [id number] Number: Repository 119[address]Cum: (850 [id number] [phone] (HP) Date:8262-36-46LT [address] [address]TH: 05/19/2018 Secondary NOT GIVENUNK [place] Insurance:SELF PAY [facility] Number: Effective Repository Date:2018-05-13 05/19/2018 JEY S Primary MICHAEL Robles [place] [id number] Insurance:HUMANA MCCORMICKDOB: [place] PPOPolicy [id number], [place] Number: Repository 526[address]Kgv: (850 [id number] [phone] (HP) Date:4151-85-45IY [address] [address]JM: 05/19/2018 Secondary NOT GIVENUNK [place] Insurance:SELF PAY [facility] Number: Effective Repository Date:2018-05-19 05/13/2018 Jey S Primary MICHAEL Gleasonoster [id number] Insurance:HUMANA MCCORMICKDOB: [place] MED[place] PPOPolicy [id number] Number: Repository 232[address]Zbp: 850 [id number] [phone] (HP) Date:3082-09-93XK [address] [address]DR: 05/13/2018 Secondary NOT GIVENUNK [place] Insurance:SELF PAY [facility] Number: Effective Repository Date:2018-05-06 05/12/2018 Jey Walker Primary MICHAEL Diehl [id number] Insurance:HUMANA MCCORMICKDOB: [place] MED[place] PPOPolicy [id number], [place] Number: Repository [address]Mrl: 850 [id number] [phone] () Date:1069-13-91MN [address] [address]HN: 05/12/2018 Secondary NOT GIVENUNK Christopher Insurance:SELF PAY [facility] Number: Effective Repository Date:2018-05-12 05/07/2018 Jey Walker Primary MICHAEL Robles [place] [id number] Insurance:HUMANA MCCORMICKDOB: [place] MED[place] PPOPolicy [id number] Number: Repository [address]Mqw: 850 [id number] [phone] () Date:7041-64-35MZ [address] [address]HW: 05/07/2018 Secondary NOT GIVENUNK [place] Insurance:SELF PAY [facility] Number: Effective Repository Date:2018-05-07 04/28/2018 Jey S Primary MICHAEL Robles [place] [id number] Insurance:HUMANA MCCORMICKDOB: [place] PPOPolicy [id number] Number: Repository 120[address]Yti: (672) [id number] [phone] () Date:6875-20-47DT [address] [address]OG: 04/28/2018 Secondary NOT GIVENUNK Christopher Insurance:SELF PAY [facility] Number: Effective Repository Date:2018-04-28 04/21/2018 Jey Walker Primary MICHAEL Robles Christopher [id number] Insurance:HUMANA MCCORMICKDOB: [place] MED[place] PPOPolicy [id number][place] Number: Repository [address]Xut: (850 [id number] [phone] (HP) Date:9157-38-88MR [address] [address]QH: 04/21/2018 Secondary NOT GIVENUNK Christopher Insurance:SELF PAY [facility] Number: Effective Repository Date:2018-04-14 04/21/2018 Jey S Primary MICHAEL Diehl [id number] Insurance:HUMANA MCCORMICKDOB: [facility] [id number] [facility] [place] Number: Repository [address]Hca: 850 [id number] [phone] (HP) Date:0308-71-52QA [address] [address]WI: 04/21/2018 Secondary NOT GIVENUNK Christopher Insurance:SELF PAY [facility] Number: Effective Repository Date:2018-04-21 04/16/2018 Jey S Primary MICHAEL Gleasonoster [id number] Insurance:HUMANA MCCORMICKDOB: [place] MEDICARE PPOPolicy [id number] Memorial Hospital [place] Number: Repository [address]Dcj: (850 [id number] [phone] () Date:9195-18-96NW [address] [address]BF: 04/16/2018 Secondary NOT GIVENUNK [place] Insurance:SELF PAY [facility] Number: Effective Repository Date:2018-04-09 04/07/2018 Jey S Primary MICHAEL Gleasonoster [id number] Insurance:HUMANA MCCORMICKDOB: [place] MEDICARE PPOPolicy [id number] Memorial Hospital [place] Number: Repository [address]798Kkr: 850 [id number] [phone] (HP) Date:2865-24-95ZY [address] [address]UM: 04/07/2018 Secondary NOT GIVENUNK [place] Insurance:SELF PAY [facility] Number: Effective Repository Date:2018-04-07 04/07/2018 Jey Walker Primary MICHAEL Robles [place] [id number] Insurance:HUMANA MCCORMICKDOB: [place] MEDICARE PPOPolicy [id number], [place] Number: Repository [address]Fpv: (850 [id number] [phone] (HP) Date:5840-85-40UM [address] [address]XY: 04/07/2018 Secondary NOT GIVENUNK Christopher Insurance:SELF PAY [facility] Number: Effective Repository Date:2018-04-06 04/02/2018 Jey Walker Primary MICHAEL Robles [place] [id number] Insurance:HUMANA MCCORMICKDOB: [place] MEDICARE PPOPolicy [id number], [place] Number: Repository 15953Njx: 850 [id number] [phone] (HP) Date:4104-63-24IB [address] [address]SI: 04/02/2018 Secondary NOT GIVENUNK [place] Insurance:SELF PAY [facility] Number: Effective Repository Date:2018-03-13 04/02/2018 Jey Walker Primary MICHAEL Robles Christopher [id number] Insurance:HUMANA MCCORMICKDOB: [place] MEDICARE PPOPolicy [id number] Number: Repository 03809Xrx: (850 [id number] [phone] (HP) Date:6631-86-73II [address] [address]AE: 04/02/2018 Secondary NOT GIVENUNK Christopher Insurance:SELF PAY [facility] Number: Effective Repository Date:2018-04-02 04/02/2018 Jey Walker Primary MICHAEL Gleasonoster [id number] Insurance:HUMANA MCCORMICKDOB: [place] MEDICARE PPOPolicy [id number], [place] Number: Repository 27381Yjk: (850 [id number] [phone] (HP) Date:9624-82-51UD [address] [place] [address]BQ: 04/02/2018 Secondary NOT GIVENUNK [place] Insurance:SELF PAY [facility] Number: Effective Repository Date:2018-04-02 03/11/2018 Jey Walker Primary NOT GIVENUNK Christpoher [id number] Insurance:SELF [place]Y [facility] [place] Number: Effective Repository [address]Cer: 850) Date:2018-02-17 [phone] () 03/05/2018 Jey S Primary MICHAEL Diehl [id number] Insurance:HUMANA MCCORMICKDOB: [place] MEDICARE PPOPolicy [id number] Memorial Hospital [place] Number: Repository [address]Wld: [id number] [phone] Date:4177-45-53UO [address] () [address] [place] [address]AF: 03/05/2018 Secondary NOT GIVENUNK [place] Insurance:SELF PAY [facility] Number: Effective Repository Date:2018-03-05 03/01/2018 Jey S Primary MICHAEL Robles Christopher [id number] Insurance:HUMANA MCCORMICKDOB: [place] MEDICARE PPOPolicy [id number] Memorial Hospital [place] Number: Repository 227[address]Gzn: [id number] [phone] Date:9645-01-36LZ [address] () [address] [place] [address]EA: 03/01/2018 Secondary NOT GIVENUNK [place] Insurance:SELF PAY [facility] Number: Effective Repository Date:2018-03-01 03/01/2018 Jey S Primary MICHAEL Diehl [id number] Insurance:HUMANA MCCORMICKDOB: [place] MEDICARE PPOPolicy [id number] Memorial Hospital [place] Number: Repository [address]Nbu: [id number] [phone] Date:1255-60-55RR [address] () [address] [place] [address]XR: 03/01/2018 Secondary NOT GIVENUNK Christopher Insurance:SELF PAY [facility] Number: Effective Repository Date:2018-03-01 03/01/2018 Jey Walker Primary MICHAEL Robles Christopher [id number] Insurance:HUMANA MCCORMICKDOB: [place] MEDICARE PPOPolicy [id number] Number: Repository [address]Odb: [id number] [phone] Date:1506-53-79KC [address] () [address] [place] [address]QL: 03/01/2018 Secondary NOT GIVENUNK [place] Insurance:SELF PAY [facility] Number: Effective Repository Date:2018-03-01 03/01/2018 Jey Walker Primary MICHAEL Robles [place] [id number] Insurance:HUMANA MCCORMICKDOB: [place] MEDICARE PPOPolicy [id number], [place] Number: Repository [address]Bvk: [id number] [phone] Date:6439-38-07QI [address] () [address] [place] [address]VL: 03/01/2018 Secondary NOT GIVENUNK [place] Insurance:SELF PAY [facility] Number: Effective Repository Date:2018-03-01 03/01/2018 Jey Walker Primary MICHAEL Robles [place] [id number] Insurance:HUMANA MCCORMICKDOB: [place] MEDICARE PPOPolicy [id number] Number: Repository [address]Qsn: [id number] [phone] Date:5750-45-47AK [address] () [address] [place] [address]OW: 03/01/2018 Secondary NOT GIVENUNK Christopher Insurance:SELF PAY [facility] Number: Effective Repository Date:2018-03-01 03/01/2018 Jey Walker Primary MICHAEL Robles [place] [id number] Insurance:HUMANA MCCORMICKDOB: [place] MEDICARE PPOPolicy [id number] Number: Repository [address]Wrq: (921) [id number] [phone] () Date:2043-21-55TQ [address] [place] [address]TP: 03/01/2018 Secondary NOT GIVENUNK Christopher Insurance:SELF PAY [facility] Number: Effective Repository Date:2018-03-01 02/26/2018 Jey S Primary MICHAEL Robles [place] [id number] Insurance:HUMANA MCCORMICKDOB: [place] MEDICARE PPOPolicy [id number], [place] Number: Repository [address]Qiu: [id number] [phone] Date:8038-90-76UG [address] () [address] [place] [address]UD: 02/26/2018 Secondary NOT GIVENUNK [place] Insurance[place] [facility] Hospital Number: Effective Repository Date:2018-02-17 02/26/2018 Jey S Primary MICHAEL Robles [place] [id number] Insurance:HUMANA MCCORMICKDOB: [place] MED[place]ARE PPOPolicy [id number] Number: Repository [address]Bel: [id number] [phone] Date:1113-33-74WW [address] [place] [address]LB: 02/26/2018 Secondary NOT GIVENUNK Christopher Insurance:SELF PAY [facility] Number: Effective Repository Date:2018-02-26 02/10/2018 Jey S Primary MICHAEL Robles [place] [id number] Insurance:HUMANA MCCORMICKDOB: [facility] [place] MEDICARE PPOPolicy [id number] Number: Repository [address]Unu: [id number] [phone] Date:9249-95-63TD [address] () [address] [place] [address]70-27[address]YY: 02/10/2018 Secondary NOT GIVENUNK Christopher Insurance:SELF [facility]Y [facility] Number: Effective Repository Date:2018-01-01 01/22/2018 Jye Walker Primary MICHAEL Robles [place] [id number] Insurance:HUMANA MCCORMICKDOB: [facility] [id number] Number: Repository [address]Cfg: [id number] [phone] Date:7868-14-58YY [address] () [address] [place] [address]85[address]BQ: 01/22/2018 Secondary NOT GIVENUNK Christopher Insurance:SELF PAY [facility] Number: Effective Repository Date:2018-01-22 01/19/2018 Jey Walker Primary MICHAEL Robles Christopher [id number] Insurance:HUMANA MCCORMICKDOB: [facility] [place] MEDICARE PPOPolicy [id number] Number: Repository [address]Bzk: [id number] [phone] Date:6468-57-54TC [address] () [address] [place] [address] 76717-6399HQ: 01/19/2018 Secondary NOT GIVENUNK [place] Insurance:SELF PAY [facility] Number: Effective Repository Date:2018-01-19 01/19/2018 Jey Walker Primary MICHAEL Gleasonoster [id number] Insurance:HUMANA MCCORMICKDOB: [facility] [place] MEDICARE PPOPolicy [id number] Number: Repository [address]Obw: [id number] [phone] Date:1995-70-21TV [address] [place] [address]-7[address]KP: 01/19/2018 Secondary NOT GIVENUNK [place] Insurance:SELF PAY [facility] Number: Effective Repository Date:2018-01-19 01/19/2018 Jey Walker Primary MICHAEL Gleasonoster [id number] Insurance:HUMANA MCCORMICKDOB: [place] MEDICARE PPOPolicy [id number], [place] Number: Repository [address]Aor: [id number] [phone] Date:8353-03-68NN [address] () [address] [place] [address]82[address]FT: 01/19/2018 Secondary NOT GIVENUNK Christopher Insurance:SELF PAY [facility] Number: Effective Repository Date:2018-01-19 01/19/2018 Jey Walker Primary MICHAEL Diehl [id number] Insurance:HUMANA MCCORMICKDOB: [place] MEDICARE PPOPolicy [id number][place] Number: Repository [address]Dfx: [id number] [phone] Date:9540-72-42ZO [address] () [address] [place] [address] 390[address]-1713HX: 01/19/2018 Secondary NOT GIVENUNK Christopher Insurance:SELF PAY [facility] Number: Effective Repository Date:2018-01-19 01/19/2018 Jey S Primary MICHAEL Gleasonoster [id number] Insurance:HUMANA MCCORMICKDOB: [place] MEDICARE PPOPolicy [id number], [place] Number: Repository [address]Rue: [id number] [phone] Date:6748-67-08FB [address] () [address] [place] [address] 265[address]09[address]HG: 01/19/2018 Secondary NOT GIVENUNK [place] Insurance:SELF PAY [facility] Number: Effective Repository Date:2018-01-19 01/19/2018 Jey S Primary MICHAEL Gleasonoster [id number] Insurance:HUMANA MCCORMICKDOB: [facility] [place] MEDICARE PPOPolicy [id number] Number: Repository [address]Ejf: [id number] [phone] Date:7063-60-17OS [address] () [address] [place] [address]20-90[address]RR: 01/19/2018 Secondary NOT GIVENUNK Christopher Insurance:SELF PAY [facility] Number: Effective Repository Date:2018-01-19 01/19/2018 Jey Walker Primary MICHAEL Robles [place] [id number] Insurance:HUMANA MCCORMICKDOB: [place] MEDICARE PPOPolicy [id number], [place] Number: Repository [address]Aur: [id number] [phone] Date:1069-62-29LD [address] () [address] [place] [address]47[address]65[address]EJ: 01/19/2018 Secondary NOT GIVENUNK [place] Insurance:SELF PAY [facility] Number: Effective Repository Date:2018-01-19 01/19/2018 Jey Walker Primary MICHAEL Robles [place] [id number] Insurance:HUMANA MCCORMICKDOB: [place] MEDICARE PPOPolicy [id number], [place] Number: Repository [address]Jaj: [id number] [phone] Date:6747-24-27JL [address] () [address] [place] [address]-39[address]VA: 01/19/2018 Secondary NOT GIVENUNK [place] Insurance:SELF PAY [facility] Number: Effective Repository Date:2018-01-19 01/19/2018 Jey Walker Primary MICHAEL Robles Christopher [id number] Insurance:HUMANA MCCORMICKDOB: [place] MEDICARE PPOPolicy [id number], [place] Number: Repository [address]Hfw: [id number] [phone] Date:6410-31-52ND [address] () [address] [place] [address]62[address]IY: 01/19/2018 Secondary NOT GIVENUNK Christopher Insurance:SELF PAY [facility] Number: Effective Repository Date:2018-01-19 01/19/2018 Jey Walker Primary MICHAEL Diehl [id number] Insurance:HUMANA MCCORMICKDOB: [place] MEDICARE PPOPolicy [id number] Number: Repository [address]Jdc: [id number] [phone] Date:9908-27-63RK [address] () [address] [place] [address]14[address]SV: 01/19/2018 Secondary NOT GIVENUNK Christopher Insurance:SELF PAY [facility] Number: Effective Repository Date:2018-01-19 01/19/2018 Jey Walker Primary MICHAEL Robles [place] [id number] Insurance:HUMANA MCCORMICKDOB: [place] MEDICARE PPOPolicy [id number], [place] Number: Repository [address]Zhe: [id number] [phone] Date:3603-92-64EW [address] () [address] [place] [address]9087ZA: 01/19/2018 Secondary NOT GIVENUNK [place] Insurance:SELF PAY [facility] Number: Effective Repository Date:2018-01-19 01/08/2018 Jey Walker Primary MICHAEL Robles [place] [id number] Insurance:HUMANA MCCORMICKDOB: [facility] [place] MEDICARE PPOPolicy [id number], [place] Number: Repository [address]Qgx: [id number] [phone] Date:8077-98-01FY [address] () [address] [place] [address]LW: 01/08/2018 Secondary NOT GIVENUNK [place] Insurance:SELF PAY [facility] Number: Effective Repository Date:2018-01-06 01/01/2018 Jey Walker Primary MICHAEL Robles [place] [id number] Insurance:HUMANA MCCORMICKDOB: [facility] [place] MEDICARE PPOPolicy [id number], [place] Number: Repository [address]Yfh: [id number] [phone] Date:9867-11-92UW [address] () [address] [place] [address]OJ: 01/01/2018 Secondary NOT GIVENUNK [place] Insurance:SELF PAY [facility] Number: Effective Repository Date:2017-12-30 12/22/2017 Jey S Primary MICHAEL Robles [place] [id number] Insurance:HUMANA MCCORMICKDOB: [facility] [place] MEDICARE PPOPolicy [id number], [place] Number: Repository [address]Yvu: [id number] [phone] Date:5643-01-54WX [address] () [address] [place] [address]-032[address]YQ: 12/22/2017 Secondary NOT GIVENUNK [place] Insurance:SELF PAY [facility] Number: Effective Repository Date:2017-12-22 12/12/2017 MICHAEL Robles Primary MICHAEL Robles [facility] MCCORMICKDOB: Insurance:HUMANA MCCORMICKDOB: [facility] PPOPolicy [id number] Number: [place] [id number]: (902) Date: 571973 () 12/12/2017 Jey Walker Primary MICHAEL Robles [place] [id number] Insurance:HUMANA MCCORMICKDOB: [facility] [place] MEDICARE PPOPolicy [id number][place] Number: Repository [address]Hri: [id number] [phone] Date:3994-33-68PO [address] () [address] [place] [address]FQ: 12/12/2017 Secondary NOT GIVENUNK Christopher Insurance:SELF PAY [facility] Number: Effective Repository Date:2017-12-12 12/05/2017 Jey S Primary MICHAEL Robles [place] [id number] Insurance:HUMANA MCCORMICKDOB: [facility] [place] MEDICARE PPOPolicy [id number][place] Number: Repository 11345Uyf: [id number] [phone] Date:9588-29-75EF [address] () [address] [place] [address]FG: 12/05/2017 Secondary NOT GIVENUNK Christopher Insurance:SELF PAY [facility] Number: Effective Repository Date:2017-12-05 11/27/2017 Jey S Primary MICHAEL Robles [place] [id number] Insurance:HUMANA MCCORMICKDOB: [place] MEDICARE PPOPolicy [id number] Number: Repository [address]Jcx: [id number] [phone] Date:0483-60-90OV [address] (HP) [address] [place] [address]39-47[address]GG: 11/27/2017 Secondary NOT GIVENUNK Christopher Insurance:SELF PAY [facility] Number: Effective Repository Date:2017-11-27 11/27/2017 Jey S Primary MICHAEL Robles [place] [id number] Insurance:HUMANA MCCORMICKDOB: [facility] [place] MEDICARE PPOPolicy [id number] Number: Repository [address]Adu: [id number] [phone] Date:7265-31-77DN [address] () [address] [place] [address]40-9[address]HN: 11/27/2017 Secondary NOT GIVENUNK [place] Insurance:SELF PAY [facility] Number: Effective Repository Date:2017-11-27 11/27/2017 Jey S Primary MICHAEL Robles [place] [id number] Insurance:HUMANA MCCORMICKDOB: [facility] [place] MEDICARE PPOPolicy [id number] Number: Repository [address]Nlw: [id number] [phone] Date:4431-51-90MI [address] () [address] [place] [address]1381XH: 11/27/2017 Secondary NOT GIVENUNK [place] Insurance:SELF PAY [facility] Number: Effective Repository Date:2017-11-27 11/27/2017 Jey S Primary MICHAEL Robles [place] [id number] Insurance:HUMANA MCCORMICKDOB: [facility] [place] MEDICARE PPOPolicy [id number], [place] Number: Repository [address]Skj: [id number] [phone] Date:4444-31-04YR [address] (HP) [address] [place] [address]WH: 11/27/2017 Secondary NOT GIVENUNK [place] Insurance:SELF PAY [facility] Number: Effective Repository Date:2017-11-27 11/27/2017 Jey Walker Primary MICHAEL Diehl [id number] Insurance:HUMANA MCCORMICKDOB: [place] MEDICARE PPOPolicy [id number] Number: Repository 51006Zjl: [id number] [phone] Date:5279-75-98LG [address] () [address] [place] [address]57[address]TX: 11/27/2017 Secondary NOT GIVENUNK [place] Insurance:SELF PAY [facility] Number: Effective Repository Date:2017-11-27 11/27/2017 Jey Walker Primary MICHAEL Robles [place] [id number] Insurance:HUMANA MCCORMICKDOB: [facility] [place] MEDICARE PPOPolicy [id number][place] Number: Repository [address]Gwx: [id number] [phone] Date:4809-99-48YV [address] () [address] [place] [address]-88[address]YB: 11/27/2017 Secondary NOT GIVENUNK Christopher Insurance:SELF PAY [facility] Number: Effective Repository Date:2017-11-27 11/27/2017 Jey S Primary MICHAEL Robles Christopher [id number] Insurance:HUMANA MCCORMICKDOB: [facility] [place] MEDICARE PPOPolicy [id number] Number: Repository [address]Pze: [id number] [phone] Date:3038-24-73IO [address] () [address] [place] [address]VU: 11/27/2017 Secondary NOT GIVENUNK Christopher Insurance:SELF PAY [facility] Number: Effective Repository Date:2017-11-27 11/27/2017 Jey S Primary MICHAEL Robles [place] [id number] Insurance:HUMANA MCCORMICKDOB: [place] MEDICARE PPOPolicy [id number][place] Number: Repository 83[address]Yzv: [id number] [phone] Date:0458-11-72AZ [address] (HP) [address] [place] [address]GC: 11/27/2017 Secondary NOT GIVENUNK Christopher Insurance:SELF PAY [facility] Number: Effective Repository Date:2017-11-27 11/27/2017 Jey S Primary MICHAEL Robles Christopher [id number] Insurance:HUMANA MCCORMICKDOB: [place] MEDICARE PPOPolicy [id number] [place] Number: Repository [address]Aju: [id number] [phone] Date:8380-70-58NI [address] (HP) [address] [place] [address]JB: 11/27/2017 Secondary NOT GIVENUNK Christopher Insurance:SELF PAY [facility] Number: Effective Repository Date:2017-11-27 11/27/2017 Jey S Primary MICHAEL Robles Christopher [id number] Insurance:HUMANA MCCORMICKDOB: [place] MEDICARE PPOPolicy [id number] Number: Repository [address]Rvq: [id number] [phone] Date:4186-40-35TC [address] () [address] [place] [address]-26[address]ET: 11/27/2017 Secondary NOT GIVENUNK Christopher Insurance:SELF PAY [facility] Number: Effective Repository Date:2017-11-27 11/27/2017 Jey S Primary MICHAEL Robles Christopher [id number] Insurance:HUMANA MCCORMICKDOB: [facility] [place] MEDICARE PPOPolicy [id number], [place] Number: Repository [address]Vrq: [id number] [phone] Date:4076-75-01EK [address] (HP) [address] [place] [address]-54[address]HR: 11/27/2017 Secondary NOT GIVENUNK [place] Insurance:SELF PAY [facility] Number: Effective Repository Date:2017-11-27 11/27/2017 Jey Walker Primary MICHAEL Robles [place] [id number] Insurance:HUMANA MCCORMICKDOB: [facility] [place] MEDICARE PPOPolicy [id number], [place] Number: Repository [address]398Oav: [id number] [phone] Date:6191-49-28NG [address] () [address] [place] [address]-5[address]JN: 11/27/2017 Secondary NOT GIVENUNK [place] Insurance:SELF PAY [facility] Number: Effective Repository Date:2017-11-27 11/27/2017 Jey Walker Primary MICHAEL Robles [place] [id number] Insurance:HUMANA MCCORMICKDOB: [facility] [place] MEDICARE PPOPolicy [id number] Number: Repository 14[address]Wjd: [id number] [phone] Date:0493-72-19JI [address] () [address] [place] [address]VJ: 11/27/2017 Secondary NOT GIVENUNK [place] Insurance:SELF PAY [facility] Number: Effective Repository Date:2017-11-27 11/27/2017 Jey S Primary MICHAEL Gleasonoster [id number] Insurance:HUMANA MCCORMICKDOB: [facility] [place] MEDICARE PPOPolicy [id number], [place] Number: Repository 52932Fxq: [id number] [phone] Date:2432-49-56ML [address] () [address] [place] [address]65[address]-6[address]KH: 11/27/2017 Secondary NOT GIVENUNK Christopher Insurance:SELF PAY [facility] Number: Effective Repository Date:2017-11-27 11/27/2017 Jey S Primary MICHAEL Diehl [id number] Insurance:HUMANA MCCORMICKDOB: [place] MEDICARE PPOPolicy [id number] Number: Repository 60656Got: [id number] [phone] Date:3076-01-69MA [address] () [address] [place] [address]-27[address]VD: 11/27/2017 Secondary NOT GIVENUNK Christopher Insurance:SELF PAY [facility] Number: Effective Repository Date:2017-11-27 11/27/2017 Jey S Primary MICHAEL Diehl [id number] Insurance:HUMANA MCCORMICKDOB: [facility] MEDICARE OPolicy [id number], [place] Number: Repository [address]Etp: [id number] [phone] Date:8656-78-93IA [address] () [address] [place] [address]CY: 11/27/2017 Secondary NOT GIVENUNK [place] Insurance:SELF PAY [facility] Number: Effective Repository Date:2017-11-27 11/27/2017 Jey S Primary MICHAEL Gleasonoster [id number] Insurance:HUMANA MCCORMICKDOB: [facility] MEDICARE [facility] [id number], [place] Number: Repository [address]Sbl: [id number] [phone] Date:1013-48-63DQ [address] () [address] [place] [address]CA: 11/27/2017 Secondary NOT GIVENUNK [place] Insurance:SELF PAY [facility] Number: Effective Repository Date:2017-11-27 11/27/2017 Jey S Primary MICHAEL Gleasonoster [id number] Insurance:HUMANA MCCORMICKDOB: [facility] [place] MEDICARE PPOPolicy [id number], [place] Number: Repository 10652Qjd: [id number] [phone] Date:3908-99-72JO [address] () [address] [place] [address]-87[address]OO: 11/27/2017 Secondary NOT GIVENUNK Christopher Insurance:SELF PAY [facility] Number: Effective Repository Date:2017-11-27 11/27/2017 Jey Walker Primary MICHAEL Diehl [id number] Insurance:HUMANA MCCORMICKDOB: [place] MEDICARE PPOPolicy [id number], [place] Number: Repository 89147Jfe: [id number] [phone] Date:4024-60-62UD [address] () [address] [place] [address]IA: 11/27/2017 Secondary NOT GIVENUNK Christopher Insurance:SELF PAY [facility] Number: Effective Repository Date:2017-11-27 11/27/2017 Jey Walker Primary MICHAEL Robles [place] [id number] Insurance:HUMANA MCCORMICKDOB: [facility] [place] MEDICARE PPOPolicy [id number] Number: Repository [address]Rld: [id number] [phone] Date:3656-14-77XH [address] () [address] [place] [address]77[address]SS: 11/27/2017 Secondary NOT GIVENUNK Christopher Insurance:SELF PAY [facility] Number: Effective Repository Date:2017-11-27 11/27/2017 Jey Walker Primary MICHAEL Gleasonoster [id number] Insurance:HUMANA MCCORMICKDOB: [facility] [place] MEDICARE PPOPolicy [id number], [place] Number: Repository 97[address]Fxh: [id number] [phone] Date:4815-24-75HT [address] () [address] [place] [address]-72[address]IV: 11/27/2017 Secondary NOT GIVENUNK [place] Insurance:SELF PAY [facility] Number: Effective Repository Date:2017-11-27 11/27/2017 Jey Walker Primary MICHAEL Gleasonoster [id number] Insurance:HUMANA MCCORMICKDOB: [facility] [place] MEDICARE PPOPolicy [id number], [place] Number: Repository [address]26[address]Mdr: [id number] [phone] Date:3553-48-98YR [address] () [address] [place] [address]-65[address]FB: 11/27/2017 Secondary NOT GIVENUNK Christopher Insurance:SELF PAY [facility] Number: Effective Repository Date:2017-11-27 11/27/2017 Jey Walker Primary MICHAEL Robles Christopher [id number] Insurance:HUMANA MCCORMICKDOB: [facility] [place] MEDICARE PPOPolicy [id number], [place] Number: Repository [address]Mgf: [id number] [phone] Date:7431-01-35IN [address] () [address] [place] [address]-64[address]ER: 11/27/2017 Secondary NOT GIVENUNK [place] Insurance:SELF PAY [facility] Number: Effective Repository Date:2017-11-27 11/27/2017 Jey S Primary MICHAEL Robles Christopher [id number] Insurance:HUMANA MCCORMICKDOB: [facility] [place] MEDICARE PPOPolicy [id number] Number: Repository [address]Prt: [id number] [phone] Date:7799-40-36JI [address] () [address] [place] [address]TO: 11/27/2017 Secondary NOT GIVENUNK Christopher Insurance:SELF PAY [facility] Number: Effective Repository Date:2017-11-27 11/27/2017 Jey Walker Primary MICHAEL Robles [place] [id number] Insurance:HUMANA MCCORMICKDOB: [facility] [place] MEDICARE PPOPolicy [id number], [place] Number: Repository [address]250Qiu: [id number] [phone] Date:8588-54-50JV [address] () [address] [place] [address]PH: 11/27/2017 Secondary NOT GIVENUNK [place] Insurance:SELF PAY [facility] Number: Effective Repository Date:2017-11-27 11/27/2017 Jey S Primary MICHAEL Robles [place] [id number] Insurance:HUMANA MCCORMICKDOB: [facility] [place] MEDICARE PPOPolicy [id number] Number: Repository [address]Cql: [id number] [phone] Date:9491-73-36ES [address] (HP) [address] [place] [address]DO: 11/27/2017 Secondary NOT GIVENUNK [place] Insurance:SELF PAY [facility] Number: Effective Repository Date:2017-11-27 11/27/2017 Jey S Primary MICHAEL Robles [place] [id number] Insurance:HUMANA MCCORMICKDOB: [facility] [place] MEDICARE PPOPolicy [id number], [place] Number: Repository [address]Iqf: [id number] [phone] Date:0217-89-47QK [address] () [address] [place] [address]ST: 11/27/2017 Secondary NOT GIVENUNK Christopher Insurance:SELF PAY [facility] Number: Effective Repository Date:2017-11-27 11/27/2017 Jey S Primary MICHAEL Robles Christopher [id number] Insurance:HUMANA MCCORMICKDOB: [facility] [place] MEDICARE PPOPolicy [id number][place] Number: Repository [address]Fkc: [id number] [phone] Date:8025-30-19YW [address] () [address] [place] [address]ZX: 11/27/2017 Secondary NOT GIVENUNK [place] Insurance:SELF PAY [facility] Number: Effective Repository Date:2017-11-27 11/27/2017 Jey S Primary MICHAEL Robles Christopher [id number] Insurance:HUMANA MCCORMICKDOB: [facility] [place] MEDICARE PPOPolicy [id number], [place] Number: Repository [address]79Dvf: [id number] [phone] Date:3466-33-27HR [address] (HP) [address] [place] [address]BY: 11/27/2017 Secondary NOT GIVENUNK Christopher Insurance:SELF PAY [facility] Number: Effective Repository Date:2017-11-27 11/27/2017 Jey Walker Primary MICHAEL Dielh [id number] Insurance:HUMANA MCCORMICKDOB: [facility] [place] MEDICARE PPOPolicy [id number], [place] Number: Repository [address]Tfk: [id number] [phone] Date:6542-66-40XG [address] () [address] [place] [address]77[address]CL: 11/27/2017 Secondary NOT GIVENUNK [place] Insurance:SELF PAY [facility] Number: Effective Repository Date:2017-11-27 11/27/2017 Jey Walker Primary MICHAEL Robles [place] [id number] Insurance:HUMANA MCCORMICKDOB: [facility] [place] MEDICARE PPOPolicy [id number], [place] Number: Repository [address]47Iua: [id number] [phone] Date:4602-69-44XV [address] () [address] [place] [address]DM: 11/27/2017 Secondary NOT GIVENUNK Christopher Insurance:SELF PAY [facility] Number: Effective Repository Date:2017-11-27 11/27/2017 Jey S Primary MICHAEL Robles Christopher [id number] Insurance:HUMANA MCCORMICKDOB: [facility] [place] MEDICARE PPOPolicy [id number] Number: Repository [address]366Vbl: [id number] [phone] Date:2607-24-08TE [address] () [address] [place] [address]SI: 11/27/2017 Secondary NOT GIVENUNK Christopher Insurance:SELF PAY [facility] Number: Effective Repository Date:2017-11-27 11/27/2017 Jey S Primary MICHAEL Robles [place] [id number] Insurance:HUMANA MCCORMICKDOB: [place] MED[place]ARE PPOPolicy [id number] Number: Repository [id number]: [id number] [phone] Date:0350-75-20[address] (HP) [address] [place] [phone]: 11/27/2017 Secondary NOT GIVENUNK [place] Insurance:SELF PAY [facility] Number: Effective Repository Date:2017-11-27 11/27/2017 Jey S Primary MICHAEL Robles Christopher [id number] Insurance:HUMANA MCCORMICKDOB: [place] MEDICARE PPOPolicy [id number] [place] Number: Repository [id number]: [id number] [phone] Date:[id number] (HP) [address] [place] [phone]: 11/27/2017 Secondary NOT GIVENUNK [place] Insurance:SELF PAY [facility] Number: Effective Repository Date:2017-11-27 11/27/2017 Ejy S Primary MICHAEL Robles [place] [id number] Insurance:HUMANA MCCORMICKDOB: [place] MEDICARE PPOPolicy [id number] Number: Repository [id number]: [id number] [phone] Date:[id number] [address] () [address] [place], [place] [id number]: 11/27/2017 Secondary NOT GIVENUNK [place] Insurance:SELF PAY [facility] Number: Effective Repository Date:2017-11-27 11/27/2017 Jey S Primary MICHAEL Robles [place] [id number] Insurance:HUMANA MCCORMICKDOB: [place]icy [id number] Number: Repository [id number]: [id number] [phone] Date:5070-34-86[address] (HP) [address] [place] [id number]: 11/27/2017 Secondary NOT GIVENUNK Christopher Insurance:SELF PAY [facility] Number: Effective Repository Date:2017-11-27 11/27/2017 Jey Walker Primary MICHAEL Diehl [id number] Insurance:HUMANA MCCORMICKDOB: [place] MEDICARE PPOPolicy [id number] Number: Repository [id number]: [id number] [phone] Date:7738-24-48TQ [address] () [address] [place] [id number]: 11/27/2017 Secondary NOT GIVENUNK [place] Insurance:SELF PAY [facility] Number: Effective Repository Date:2017-11-27 11/27/2017 Jey Walker Primary MICHAEL Diehl [id number] Insurance:HUMANA MCCORMICKDOB: [place] MEDICARE PPOPolicy [id number] Number: Repository [id number]: [id number] [phone] Date:8910-14-18VS [address] () [address] [place] [id number]: 11/27/2017 Secondary NOT GIVENUNK Christopher Insurance:SELF PAY [facility] Number: Effective Repository Date:2017-11-27 11/26/2017 Jey Walker Primary MICHAEL Diehl [id number] Insurance:HUMANA MCCORMICKDOB: [place] MEDICARE PPOPolicy [id number] Number: Repository [id number]: [id number] [phone] Date:0187-05-42EK [address] () [address] [place] [id number]: 11/26/2017 Secondary NOT GIVENUNK [place] Insurance:SELF PAY [facility] Number: Effective Repository Date:2017-10-23
== END ==
PROVIDERS: Family Provider Family Medicine; PCP Internal Medicine; Referring Provider Physician Assistant Medical; Visit Provider Physician Assistant Medical
DX: I50.9 Heart failure, unspecified (principal)
CPT/HCPCS: 96374; A4216; J1940

== ENCOUNTER → 2018-10-23 11:52 | Outpatient (CLI) | payer MEDICARE, SELFPAY ==
[2018-10-21 15:56] VITALS: BMI 39.6
[2018-10-23 12:21] VITALS: BP 146/70; PULSE 54; RESP 16; TEMP 36.8; O2SAT 100; BMI 39.6
[2018-10-23] MEDS: Furosemide 40 MG/4 ML Vial 80 MG IV (12:31)
[2018-10-23 13:18] LABS: Anion Gap 6 (5-15); BUN 52 mg/dL (7-18); BUN/Creat Ratio 21.9 RATIO (10-20); Calcium,Total 8.6 mg/dL (8.5-10.1); Chloride 103 mmol/L (98-107); Creatinine, Serum 2.37 mg/dL (0.55-1.02); EST Glomerular Filtration Rate 22 mL/min (>60); Est Glom Filt Rate - Afr Amer 26 mL/min (>60); Estimated Creatinine Clearance 18.27 ml/min; Glucose 229 mg/dL (74-106); Potassium 4.6 mmol/L (3.5-5.1); Sodium Level 142 mmol/L (136-145)
--- OUTSIDE RECORDS SUMMARY | 2018-12-27 23:43 | XMS RPT_ITS ---
:1945 Author Organization OHIP Support Name Relationship Address Phone JOSE JEY Unavailable [address] [phone] [place] [address] NORBERT GARCIA Unavailable [address] + [place] [address] R Unavailable Unavailable Unavailable JEY GARCIA Unavailable [address] [phone] [place] [address] NORBERT GARCIA Unavailable [address] + [place] [address] R Unavailable Unavailable Unavailable JEY GARCIA Unavailable [address] [phone] [place] [address] NORBERT GARCIA Unavailable [address] + [place] [address] R Unavailable Unavailable Unavailable JEY GARCIA Unavailable [address] [phone] [place] [address] NORBERT GARCIA Unavailable [address] + [place] [address] R Unavailable Unavailable Unavailable JEY GARCIA Unavailable [address] [phone] [place] [address] NORBERT GARCIA Unavailable [address] + [place] [address] R Unavailable Unavailable Unavailable JEY GARCIA Unavailable [address] [phone] [place] [address] NORBERT GARCIA Unavailable [address] + [place] [address] R Unavailable Unavailable Unavailable JEY GARCIA Unavailable [address] [phone] [place] [address] NORBERT GARCIA Unavailable [address] + [place] [address] R Unavailable Unavailable Unavailable JEY GARCIA Unavailable [address] [phone] [place] [address] NORBERT GARCIA Unavailable [address] + [place] [address] R Unavailable Unavailable Unavailable JEY GARCIA Unavailable [address] [phone] [place] [address] NORBERT GARCIA Unavailable [address] + [place] [address] R Unavailable Unavailable Unavailable JEY GARCIA Unavailable [address] [phone] [place] [address] NORBERT GARCIA Unavailable [address] + [place] [address] R Unavailable Unavailable Unavailable JEY GARCIA Unavailable [address] [place] [address] [place] [address] NORBERT GARCIA Unavailable [address] + [place] [address] R Unavailable Unavailable Unavailable JEY GARCIA Unavailable [address] [phone] [place] [address] NORBERT GARCIA Unavailable [address] + [place] [address] R Unavailable Unavailable Unavailable JEY GARCIA Unavailable [address] [phone] [place] [address] NORBERT GARCIA Unavailable [address] + [place] [address] R Unavailable Unavailable Unavailable JEY GARCIA Unavailable [address] [phone] [place] [address] NORBERT GARCIA Unavailable [address] + [place] [address] R Unavailable Unavailable Unavailable JEY GARCIA Unavailable [address] [phone] [place] [address] NORBERT GARCIA Unavailable [address] + [place] [address] R Unavailable Unavailable Unavailable JEY GARCIA Unavailable [address] [phone] [place] [address] NORBERT GARCIA Unavailable [address] + [place] [address] R Unavailable Unavailable Unavailable JEY GARCIA Unavailable [address] [phone] [place] [address] NORBERT GARCIA Unavailable [address] [phone] [place] [address] R Unavailable Unavailable Unavailable JEY GARCIA Unavailable [address] [phone] [place] [address] NORBERT GARCIA Unavailable [address] [phone] [place] [address] R Unavailable Unavailable Unavailable JOSE JEY Unavailable [address] [phone] [place] [address] NORBERT GARCIA Unavailable [address] [facility]([phone] [place] [address] R Unavailable Unavailable Unavailable JOSE JEY Unavailable [address] [phone] [place] [address] FREDERIC GARCIAELLE Unavailable [address] [phone] [place] [address] R Unavailable Unavailable Unavailable JEY GARCIA Unavailable [address] [phone] [place] [address] NORBERT GARCIA Unavailable [address] [phone] [place] [address] R Unavailable Unavailable Unavailable JEY GARCIA Unavailable [address] [phone] [place] [address] NORBERT GARCIA Unavailable [address] [phone] [place] [address] R Unavailable Unavailable Unavailable JEY GARCIA Unavailable [address] [phone] [place] [address] FREDERIC GARCIAELLE Unavailable [address] [facility]([phone] [place] [address] R Unavailable Unavailable Unavailable JEY GARCIA Unavailable [address] [phone] [place] [address] NORBERT GARCIA Unavailable [address] [phone] [place] [address] R Unavailable Unavailable Unavailable JEY GARCIA Unavailable [address] [phone] [place] [address] FREDERIC GARCIAELLE Unavailable [address] [phone] [place] [address] R Unavailable Unavailable Unavailable GARCIA JEY Unavailable [address] [facility]([phone] [place] [address] NORBERT GARCIA Unavailable [address] [phone] [place] [address] R Unavailable Unavailable Unavailable GARCIA JEY Unavailable [address] [phone] [place] [address] NORBERT GARCIA Unavailable [address] [phone] [place] [address] R Unavailable Unavailable Unavailable JEY GARCIA Unavailable [address] [phone] [place] [address] FREDERIC GARCIAELLE Unavailable [address] [phone] [place] [address] R Unavailable Unavailable Unavailable JOSE JEY Unavailable [address] [phone] [place] [address] FREDERIC GARCIAELLE Unavailable [address] [phone] [place] [address] R Unavailable Unavailable Unavailable JEY GARCIA Unavailable [address] [phone] [place] [address] NORBERT GARCIA Unavailable [address] [phone] [place] [address] R Unavailable Unavailable Unavailable JEY GARCIA Unavailable [address] [phone] [place] [address] NORBERT GARCIA Unavailable [address] [phone] [place] [address] R Unavailable Unavailable Unavailable JEY GARCIA Unavailable [address] [phone] [place] [address] NORBERT GARCIA Unavailable [address] [phone] [place] [address] R Unavailable Unavailable Unavailable JOSE JEY Unavailable [address] [phone] [place] [address] NORBERT GARCIA Unavailable [address] [phone] [place] [address] R Unavailable Unavailable Unavailable JEY GARCIA Unavailable [address] [phone] [place] [address] NORBERT GARCIA Unavailable [address] [phone] [place] [address] R Unavailable Unavailable Unavailable GARCIAJEY LEE Unavailable [address] [phone] [place] [address] JOSE NORBERT Unavailable Unavailable + [place] [address] R Unavailable Unavailable Unavailable JEY GARCIA Unavailable [address] [phone] [place] [address] JOSEFREDERICNORBERT Unavailable Unavailable + [place] [address] R Unavailable Unavailable Unavailable GARCIAJEY Unavailable [address] [phone] [place] [address] FREDERIC GARCIAELLE Unavailable Unavailable + [place] [address] R Unavailable Unavailable Unavailable GARCIAJEY LEE Unavailable [address] [phone] [place] [address] FREDERIC GARCIAELLE Unavailable . + [place] [address] R Unavailable Unavailable Unavailable JEY GARCIA Unavailable [address] [phone] [place] [address] FREDERIC GARCIAELLE Unavailable [address] [phone] [place] [address] R Unavailable Unavailable Unavailable JEY GARCIA Unavailable [address] [phone] [place] [address] NORBERT GARCIA Unavailable Unavailable + [place] [address] R Unavailable Unavailable Unavailable JEY GARCIA Unavailable [address] [phone] [place] [address] NORBERT GARCIA Unavailable . + [place] [address] R Unavailable Unavailable Unavailable GARCIAJEY LEE Unavailable [address] [phone] [place] [address] FREDERIC GARCIAELLE Unavailable Unavailable + [place] [address] R Unavailable Unavailable Unavailable GARCIA JEY Unavailable [address] [phone] [place] [address] FREDERIC GARCIAELLE Unavailable Unavailable + [place] [address] R Unavailable Unavailable Unavailable GARCIA, JEY Unavailable [address] [phone] [place] [address] NORBERT GARCIA Unavailable Unavailable + [place] [address] R Unavailable Unavailable Unavailable GARCIAJEY LEE Unavailable [address] [phone] [place] [address] NORBERT GARCIA Unavailable Unavailable + [place] [address] R Unavailable Unavailable Unavailable GARCIAJEY LEE Unavailable [address] [phone] [place] [address] NORBERT GARCIA Unavailable . + [place] [address] R Unavailable Unavailable Unavailable GARCIAJEY LEE Unavailable [address] [phone] [place] [address] NORBERT GARCIA Unavailable Unavailable + [place] [address] R Unavailable Unavailable Unavailable GARCIAJEY LEE Unavailable [address] [phone] [place] [address] NORBERT GARCIA Unavailable Unavailable + [place] [address] R Unavailable Unavailable Unavailable GARCIAJEY LEE Unavailable [address] [phone] [place] [address] NORBERT GARCIA Unavailable Unavailable + [place] [address] R Unavailable Unavailable Unavailable GARCIAJEY LEE Unavailable [address] [phone] [place] [address] NORBERT GARCIA Unavailable Unavailable + [place] [address] R Unavailable Unavailable Unavailable GARCIAJEY LEE Unavailable [address] [phone] [place] [address] NORBERT GARCIA Unavailable Unavailable + [place] [address] R Unavailable Unavailable Unavailable GARCIAJEY LEE Unavailable [address] [phone] [place] [address] NORBERT GARCIA Unavailable Unavailable + [place] [address] R Unavailable Unavailable Unavailable GARCIAJEY Unavailable [address] [phone] [place] [address] NORBERT GARCIA Unavailable Unavailable + [place] [address] R Unavailable Unavailable Unavailable GARCIAJEY Unavailable [address] [phone] [place] [address] NORBERT GARCIA Unavailable Unavailable + [place] [address] R Unavailable Unavailable Unavailable GARCIAJEY LEE Unavailable [address] [phone] [place] [address] JOSE NORBERT Unavailable Unavailable + [place] [address] R Unavailable Unavailable Unavailable JEY GARCIA Unavailable [address] [phone] [place] [address] NORBERT GARCIA Unavailable Unavailable + [place] [address] R Unavailable Unavailable Unavailable GARCIAJEY LEE Unavailable [address] [phone] [place] [address] NORBERT GARCIA Unavailable Unavailable + [place] [address] R Unavailable Unavailable Unavailable JEY GARCIA Unavailable [address] [phone] [place] [address] NORBERT GARCIA Unavailable [address] [phone] [place] [address] R Unavailable Unavailable Unavailable JEY GARCIA Unavailable [address] [phone] [place] [address] NORBERT GARCIA Unavailable Unavailable + [place] [address] R Unavailable Unavailable Unavailable JEY GARCIA Unavailable [address] [phone] [place] [address] NORBERT GARCIA Unavailable Unavailable + [place] [address] R Unavailable Unavailable Unavailable GARCIAJEY LEE Unavailable [address] [facility]([phone] [place] [address] NORBERT GARCIA Unavailable . + [place] [address] R Unavailable Unavailable Unavailable GARCIA, JEY Unavailable [address] [phone] [place] [address] NORBERT GARCIA Unavailable Unavailable + [place] [address] R Unavailable Unavailable Unavailable Norbert Garcia Unavailable . + [place] [address] GARCIA JEY Unavailable [address] [phone] [place] [address] R Unavailable Unavailable Unavailable JEY GARCIA Unavailable [address] [phone] [place] [address] FREDERIC GARCIAELLE Unavailable Unavailable + [place] [address] R Unavailable Unavailable Unavailable Frederic Garciaelle Unavailable . + [place] [address] JOSE JEY Unavailable [address] [phone] [place] [address] R Unavailable Unavailable Unavailable Jose Norbert Unavailable . + [place] [address] JOSE JEY Unavailable [address] [phone] [place] [address] R Unavailable Unavailable Unavailable Frederic Garciaelle Unavailable . + [place] [address] JOSE JEY Unavailable [address] [facility]([phone] [place] [address] R Unavailable Unavailable Unavailable Frederic Garciaelle Unavailable . + [place] [address] JEY GARCIA Unavailable [address] [phone] [place] [address] R Unavailable Unavailable Unavailable Norbert Garcia Unavailable . + [place] [address] JOSE JEY Unavailable [address] [phone] [place] [address] R Unavailable Unavailable Unavailable GARCIAJEY LEE Unavailable [address] [phone] [place] [address] FREDERIC GARCIAELLE Unavailable Unavailable + [place] [address] R Unavailable Unavailable Unavailable GARCIAJEY LEE Unavailable [address] [phone] [place] [address] FREDERIC GARCIAELLE Unavailable Unavailable + [place] [address] R Unavailable Unavailable Unavailable GARCIA, JEY Unavailable [address] [phone] [place] [address] JOSE NORBERT Unavailable Unavailable + [place] [address] R Unavailable Unavailable Unavailable GARCIA JEY Unavailable [address] + [place] [address] GARCIA NORBERT Unavailable Unavailable + [place] [address] R Unavailable Unavailable Unavailable Garcia, Norebrt Unavailable . + [place] [address] JOSE JEY Unavailable [address] [phone] [place] [address] R Unavailable Unavailable Unavailable JOSE JEY Unavailable [address] [phone] [place] [address] GARCIA, NORBERT Unavailable Unavailable + [place] [address] R Unavailable Unavailable Unavailable Garcia, Norbert Unavailable . + [place] [address] JOSE, JEY Unavailable [address] [place] [address] [place] [address] R Unavailable Unavailable Unavailable Garcia, Norbert Unavailable . + [place] [address] JOSE JEY Unavailable [address] [place] [address] [place] [address] R Unavailable Unavailable Unavailable Garcia, Norbert Unavailable . + [place] [address] JOSE JEY Unavailable [address] [place] [address] [place] [address] R Unavailable Unavailable Unavailable Garcia, Norbert Unavailable . + [place] [address] JOSE JEY Unavailable [address] [place] [address] [place] [address] R Unavailable Unavailable Unavailable Garcia, Norbert Unavailable . + [place] [address] JOSE JEY Unavailable [address] [place] [address] [place] [address] R Unavailable Unavailable Unavailable Garcia, Norbert Unavailable . + [place] [address] JOSE, JEY Unavailable [address] [place] [address] [place] [address] R Unavailable Unavailable Unavailable Garcia, Norbert Unavailable . + [place] [address] JOSE, JEY Unavailable [address] [place] [address] [place] [address] R Unavailable Unavailable Unavailable Garcia, Norbert Unavailable . + [place] [address] JOSE JEY Unavailable [address] [facility] + [place] [address] R Unavailable Unavailable Unavailable Garcia, Norbert Unavailable . + [place] [address] GARCIA, JEY Unavailable [address] [facility] + [place] [address] R Unavailable Unavailable Unavailable Garcia, Norbert Unavailable . + [place] [address] GARCIA, JEY Unavailable [address] [facility] + [place] [address] R Unavailable Unavailable Unavailable GARCIA, JEY Unavailable [address] [phone] [place] [address] GARCIA, NORBERT Unavailable Unavailable + [place] [address] R Unavailable Unavailable Unavailable Garcia, Norbert Unavailable . + [place] [address] GARCIA, JEY Unavailable [address] [facility] + [place] [address] R Unavailable Unavailable Unavailable Garcia, Norbert Unavailable . + [place] [address] GARCIA, JEY Unavailable [address] [facility] + [place] [address] R Unavailable Unavailable Unavailable Garcia, Norbert Unavailable . + [place] [address] GARCIA, JEY Unavailable [address] [facility] + [place] [address] R Unavailable Unavailable Unavailable Garcia, Norbert Unavailable . + [place] [address] GARCIA, JEY Unavailable [address] [phone] [place] [address] R Unavailable Unavailable Unavailable Garcia, Norbert Unavailable . + [place] [address] GARCIA, JEY Unavailable [address] [facility] + [place] [address] R Unavailable Unavailable Unavailable Garcia, Norbert Unavailable . + [place] [address] GARCIA, JEY Unavailable [address] [phone] [place] [address] R Unavailable Unavailable Unavailable Garcia, Norbert Unavailable . + [place] [address] JOSE, JEY Unavailable [address] [facility] + [place] [address] R Unavailable Unavailable Unavailable Garcia, Norbert Unavailable . + [place] [address] JOSE, JEY Unavailable [address] [place] [address] [place] [address] R Unavailable Unavailable Unavailable Garcia, Norbert Unavailable . + [place] [address] JOSE, JEY Unavailable [address] [place] [address] [place] [address] R Unavailable Unavailable Unavailable Garcia, Norbert Unavailable . + [place] [address] JOSE, JEY Unavailable [address] [place] [address] [place] [address] R Unavailable Unavailable Unavailable Garcia, Norbert Unavailable . + [place] [address] JOSE JEY Unavailable [address] [place] [address] [place] [address] R Unavailable Unavailable Unavailable Garcia, Norbert Unavailable . + [place] [address] JOSE JEY Unavailable [address] [place] [address] [place] [address] R Unavailable Unavailable Unavailable Garcia, Norbert Unavailable . + [place] [address] JOSE, JEY Unavailable [address] [place] [address] + [place] [address] R Unavailable Unavailable Unavailable Garcia, Norbert Unavailable . + [place] [address] JOSE, JEY Unavailable [address] [place] [address] [place] [address] R Unavailable Unavailable Unavailable Garcai, Norbert Unavailable . + [place] [address] JOSE, JEY Unavailable [address] [place] [address] [place] [address] R Unavailable Unavailable Unavailable Garcia, Norbert Unavailable . + [place] [address] JEY GARCIA Unavailable [address] [phone] [place] [address] R Unavailable Unavailable Unavailable Norbert Garcia Unavailable . + [place] [address] JEY GARCIA Unavailable [address] [facility]([phone] [place] [address] R Unavailable Unavailable Unavailable Care Team Providers Name Role Phone Norbert Bond Attending Unavailable Norbert Bond Referring Unavailable Sholaiff, Zeenat Primary Care Unavailable Norbert Bond Attending Unavailable Norbert Bond Referring Unavailable Jolliff, Zeenat Primary Care Unavailable Duffy, Mat [facility] Care Unavailable Ashelfah, Ghasem Admitting Unavailable oRcael Valencia Consulting Unavailable Irene Wilson Attending Unavailable Ortiz Markham Consulting Unavailable Bakhous, Aziz Consulting Unavailable Tanphaichitr, Natthavat Consulting Unavailable Anoop Angeles Consulting Unavailable Ashelfah, Ghasem Admitting Unavailable Viviana Childers NP-C Attending Unavailable Duffy Mat [facility] Unavailable Rocael Valencia Consulting Unavailable Ortiz Markham Consulting Unavailable Robert, Aziz Consulting Unavailable Jeevan Machado Consulting Unavailable Ashelfah, Ghasem Admitting Unavailable Jeevan Machado Attending Unavailable Duffy, Mat [facility] Care Unavailable Rocael Valencia Consulting Unavailable Ortiz Markham Consulting Unavailable Bakhous, Aziz Consulting Unavailable Tanphaichitr, Natthavat Consulting Unavailable Jeevan Machado Consulting Unavailable Ashelfah, Ghasem Admitting Unavailable Aydin Carroll D.O. Attending Unavailable Duffy, Victor [facility] Care Unavailable Rocael Valencia Consulting Unavailable Ortiz Markham Consulting Unavailable Bakneydas, Aziz Consulting Unavailable Tanphaichitr, Natthavat Consulting Unavailable Jeevan Machado Consulting Unavailable Ashelfah, Ghasem Admitting Unavailable Jeevan Machado Attending Unavailable Duffy [facility] Care Unavailable Rocael Valencia Consulting Unavailable Ortiz Markham Consulting Unavailable Bakhous, Aziz Consulting Unavailable Tanphaichitr, Natthavat Consulting Unavailable Jeevan Machado Consulting Unavailable Ashelfah, Ghasem Admitting Unavailable Aydin Carroll D.O. Attending Unavailable [facility] Unavailable Rocael Valencia Consulting Unavailable Ortiz Markham Consulting Unavailable Bakneydas, Aziz Consulting Unavailable Tanphaichitr, Natthavat Consulting Unavailable Jeevan Machado Consulting Unavailable Ashelfah, Ghasem Admitting Unavailable [facility] Primary [facility] Unavailable ErikRocael helton Consulting Unavailable Yari Cash Attending Unavailable Ortiz Markham Consulting Unavailable Bakhous, Aziz Consulting Unavailable Tanphaichitr, Natthavat Consulting Unavailable Cebul, Anoop Consulting Unavailable Gbaruk, Kombian Consulting Unavailable [facility] Primary Care Unavailable Irma Rockwell Attending Unavailable Alice, Jayaprakash Attending Unavailable Alice, Jayaprakash Referring Unavailable [facility] Mat Primary Care Unavailable Gbar, Kombian Admitting Unavailable Viviana Childers Attending Unavailable [facility] Unavailable Alice, Jayaprakash Consulting Unavailable Rocael Valencia Consulting Unavailable Cebul, Anoop Consulting Unavailable Ashelfah, Ghasem Consulting Unavailable Gbaruk, Kombian Admitting Unavailable Rocael Valencia Attending [facility]available [facility] Unavailable Alice, Jayaprakash Consulting Unavailable Rocael Valencia Consulting Unavailable Cebul, Anoop Consulting Unavailable Ashelfah, Ghasem Consulting Unavailable Gbaruk, Kombian Admitting Unavailable Ashelfah, Ghasem Attending Unavailable [facility] Unavailable Alice, Jayaprakash Consulting Unavailable Rocael Valencia Consulting Unavailable Cebul, Anoop Consulting Unavailable Ashelfah, Ghasem Consulting Unavailable Anoop Angeles Attending Unavailable Keilybuguzman Anoop Referring Unavailable [facility] Primary Care Unavailable Anoop Angeles Attending Unavailable Reinier Lang Attending Unavailable Jen Rosales Referring Unavailable Evangelina Hendricks PA-C Attending Unavailable Mat Duffy Referring Unavailable Darien Mcclendon Attending Unavailable Alice, Jayaprakash Attending Unavailable Alice, Jayaprakash [facility]erring [facility]available Karthik Anoop Attending Unavailable Mat Duffy Referring Unavailable Duffy Mat Primary Care Unavailable Josi Hickman Attending Unavailable Josi Hickman Referring Unavailable Duffy Mat Primary Care Unavailable Josi Hickman Attending Unavailable Mat Duffy Referring Unavailable Darien Mcclendon Attending Unavailable Mat Duffy Referring Unavailable Duffy, Mat Primary Care Unavailable Keilybul, Anoop Attending Unavailable Cebul, Anoop Referring Unavailable Duffy, Mat Primary Care Unavailable Keilybul, Anoop Consulting Unavailable Darien Mcclendon Attending Unavailable Mat Duffy Referring Unavailable Rocael Valencia Attending Unavailable Koram, Jen Penny Referring Unavailable Keilybul, Anoop Attending Unavailable Cebul, Anoop Referring Unavailable Duffy, Mat Primary Care Unavailable Ashelfah, Ghasem Attending Unavailable Ceestuardol, Anoop Attending Unavailable Duffy, Mat Referring Unavailable Duffy, Mat Primary Care Unavailable Reinier Lang Attending Unavailable Ashelfah, Ghasem Referring Unavailable Koram, Jen Penny Admitting Unavailable Mata Engle Attending Unavailable [facility] Primary Care Unavailable Alice, Jayaprakash Consulting Unavailable Melvina Grimes.O. Consulting Unavailable Mata Engle Consulting Unavailable Koram, Jen Penny Admitting Unavailable Mata Engle [facility]ending [facility] Unavailable Alice, Jayaprakash Consulting Unavailable Melvina Grimes.O. Consulting Unavailable Mata Engle Consulting Unavailable Mata Engle Attending Unavailable [facility] Primary Care Unavailable Koram, Jen Penny Admitting Unavailable Alice, Jayaprakash Consulting Unavailable Aydin Carroll D.O. Consulting Unavailable Josi Hickman Attending Unavailable Josi Hickman Referring Unavailable Duffy, Mat Primary Care Unavailable Rocael Valencia Consulting Unavailable Gbaruk, Kombian Admitting Unavailable Anoop Angeles Attending Unavailable Duffy, Mat Primary Care Unavailable Alice, Jayaprakash Consulting Unavailable Rocael Valencia Consulting Unavailable Keilybul, Anoop Consulting Unavailable Ashelfah, Ghasem Consulting Unavailable Gbaruk, Kombian Admitting Unavailable Ashelfah, Ghasem Attending Unavailable Duffy, Mat Primary Care Unavailable Alice, Jayaprakash Consulting Unavailable Rocael Valencia Consulting Unavailable Karthik, Anoop Consulting Unavailable Ashelfah, Ghasem Consulting Unavailable Gbaruk, Kombian Admitting Unavailable Ashelfah, Ghasem Attending Unavailable Duffy, Mat Primary Care Unavailable Alice, Jayaprakash Consulting Unavailable Erik, Rocael Consulting Unavailable Ashelfah, Ghasem Consulting Unavailable Gbaruk, Kombian Admitting Unavailable Rocael Valencia Attending Unavailable [facility] Primary Care Unavailable Alice, Jayaprakash Consulting Unavailable Erik, Rocael Consulting Unavailable Ashelfah, Ghasem Consulting Unavailable Gbaruk, Kombian Admitting Unavailable Viviana Childers NP-C Attending Unavailable [facility] Primary Care Unavailable Alice, Jayaprakash Consulting Unavailable Erik, Rocael Consulting Unavailable Ashelfah, Ghasem Consulting Unavailable Gbaruk, Kombian Admitting Unavailable Ashelfah, Ghasem Attending Unavailable [facility] Primary Care Unavailable Alice, Jayaprakash Consulting Unavailable Erik, Rocael Consulting Unavailable Ashelfah, Ghasem Consulting Unavailable Gbar, Kombian Admitting Unavailable [facility] Care Unavailable ErikRocael helton Consulting Unavailable Magnus, Gwyn Attending Unavailable Alice, Jayaprakash Consulting Unavailable Gbaruk, Kombian Consulting Unavailable Darien Mcclendon Attending Unavailable Jeevan Machado Referring Unavailable [facility] Care Unavailable Gbaruk, Kombian Admitting Unavailable Alice, Jayaprakash Consulting Unavailable Ashelfah, Ghasem Attending Unavailable Rocael Valencia Consulting Unavailable Karthik, Anoop Consulting Unavailable Josi Hickman Attending Unavailable [facility] Referring Unavailable [facility] Unavailable Rocael Valencia Attending Unavailable Jeevan Machado Referring Unavailable Josi Hickman Attending Unavailable Jeevan Machado Referring Unavailable Alice, Jayaprakash Attending Unavailable Alice, Jayaprakash Referring Unavailable [facility] Primary Care Unavailable Rocael Valencia Attending Unavailable Ashelfah, Ghasem Referring Unavailable Ashelfah, Ghasem Admitting Unavailable [facility] Primary Care Unavailable Erik, Rocael Consulting Unavailable Yari Cash Attending Unavailable Ortiz Markham Consulting Unavailable Bakneydas, Nidia Consulting Unavailable Tanphaichitr, Natthavat Consulting Unavailable Cebul, Anoop Consulting Unavailable Gbaruk, Kombian Consulting Unavailable Ashelfah, Ghasem Admitting Unavailable Anoop Angeles Attending Unavailable Duffy, Victor Primary Care Unavailable Erki, Rocael Consulting Unavailable Ortiz Markham Consulting Unavailable Bakhous, Aziz Consulting Unavailable Tanphaichitr, Natthavat Consulting Unavailable Cebul, Anoop Consulting Unavailable Gbaruk, Kombian Consulting Unavailable Ashelfah, Ghasem Admitting Unavailable Evangelina Hendricks PA-C Attending Unavailable [facility] Unavailable ErikRocael helton Consulting Unavailable Ortiz Markham Consulting Unavailable Bakhous, Aziz Consulting Unavailable Tanphaichitr, Natthavat Consulting Unavailable Cebul, Anoop Consulting Unavailable Gbaruk, Kombian Consulting Unavailable Ashelfah, Ghasem Admitting Unavailable Jeevan Machado Attending Unavailable [facility] Unavailable Rocael Valencia Consulting Unavailable Ortiz Markham Consulting Unavailable Bakhous, Aziz Consulting Unavailable Tanphaichitr, Natthavat Consulting Unavailable Jeevan Machado Consulting Unavailable Ashelf, Ghasem Admitting Unavailable Aydin Carroll D.O. Attending Unavailable [facility] Unavailable Rocael Valencia Consulting Unavailable Ortiz Markham Consulting Unavailable Bakneydas, Aziz Consulting Unavailable Tanphaichitr, Natthavat Consulting Unavailable Jeevan Machado Consulting Unavailable Ashelfah, Ghasem Admitting Unavailable Jeevan Machado Attending Unavailable [facility] Unavailable Rocael Valencia Consulting Unavailable Ortiz Markham Consulting Unavailable Bakneydas, Aziz Consulting Unavailable Tanphaichitr, Natthavat Consulting Unavailable Jeevan Machado Consulting Unavailable Ashelfah, Ghasem Admitting Unavailable Aydin Carroll D.O. Attending Unavailable [facility] Unavailable Rocael Valencia Consulting Unavailable Ortiz Markham Consulting Unavailable Bakhous, Aziz Consulting Unavailable Tanphaichitr, Natthavat Consulting Unavailable Jeevan Machado Consulting Unavailable Ashelfah, Ghasem Admitting Unavailable Aydin Carroll D.O. Attending Unavailable [facility] Unavailable ErikRocael helton Consulting Unavailable Ortiz Markham Consulting Unavailable Bakneydas, Aziz Consulting Unavailable Tanphaichitr, Natthavat Consulting Unavailable Jeevan Machado Consulting Unavailable Ashelfah, Ghasem Admitting Unavailable Viviana Childers Attending Unavailable [facility] Unavailable ErikRocael helton Consulting Unavailable Ortiz Markham Consulting Unavailable Bakhous, Aziz Consulting Unavailable Tanphaichitr, Natthavat Consulting Unavailable Jeevan Machado Consulting Unavailable Ashelfah, Ghasem Admitting Unavailable Jeevan Machado Attending Unavailable [facility] Unavailable Rocael Valencia Consulting Unavailable Ortiz Markham Consulting Unavailable Bakhous, Aziz Consulting Unavailable Tanphaichitr, Natthavat Consulting Unavailable SergeytoJeevan aguila Consulting Unavailable Ashelfah, Ghasem Admitting Unavailable Viviana Childers VEHICLE REFINISHER-C Attending Unavailable [facility] Unavailable Rocael Valencia Consulting Unavailable Ortiz Markham Consulting Unavailable Bakhous, Aziz Consulting Unavailable Tanphaichitr, Natthavat Consulting Unavailable SergeytoJeevan aguila Consulting Unavailable Ashelfah, Ghasem Admitting Unavailable [facility] Unavailable Rocael Valencia Consulting Unavailable Aydin Carroll D.O. Attending Unavailable Ortiz Markham Consulting Unavailable Bakhous, Aziz Consulting Unavailable Tanphaichitr, Natthavat Consulting Unavailable Jeevan Machado Consulting Unavailable Ashelfah, Ghasem Admitting Unavailable Jeevan Machado Attending Unavailable [facility] Unavailable Rocael Valencia Consulting Unavailable Ortiz Markham Consulting Unavailable Bakhous, Aziz Consulting Unavailable Tanphaichitr, Natthavat Consulting Unavailable Jeevan Machado Consulting Unavailable Ashelfah, Ghasem Admitting Unavailable Viviana Childers VEHICLE REFINISHER-C Attending Unavailable [facility] Unavailable Rocael Valencia Consulting Unavailable Ortiz Markham Consulting Unavailable Bakhous, Aziz Consulting Unavailable Tanphaichitr, Natthavat Consulting Unavailable Jeevan Machado Consulting Unavailable Ashelfah, Ghasem Admitting Unavailable Aydin Carroll D.O. Attending Unavailable [facility] Unavailable Rocael Valencia Consulting Unavailable Ortiz Markham Consulting Unavailable Bakhous, Aziz Consulting Unavailable Tanphaichitr, Natthavat Consulting Unavailable Jeannette, Jeevan Consulting Unavailable Ashelfah, Ghasem Admitting Unavailable Viviana Childers VEHICLE REFINISHER-C Attending Unavailable [facility] Unavailable Rocael Valencia Consulting Unavailable Ortiz Markham Consulting Unavailable Bakhous, Aziz Consulting Unavailable Tanphaichitr, Natthavat Consulting Unavailable Jeevan Machado Consulting Unavailable Ashelfah, Ghasem Admitting Unavailable Ortiz Markham Attending Unavailable [facility] Unavailable Rocael Valencia Consulting Unavailable Ortiz Markham Consulting Unavailable Nidia Jones Consulting Unavailable Ashelfah, Ghasem Consulting Unavailable Ashelfah, Ghasem Admitting Unavailable Ashelfah, Ghasem Attending Unavailable [facility] Unavailable ErikRocael helton Consulting Unavailable Ortiz Markham Consulting Unavailable Ashelfah, Ghasem Consulting Unavailable Ashelfah, Ghasem Admitting Unavailable Ortiz Markham Attending Unavailable [facility] Unavailable ErikRocael helton Consulting Unavailable Ortiz Markham Consulting Unavailable Ashelfah, Ghasem Consulting Unavailable Ashelfah, Ghasem Admitting Unavailable Ashelfah, Ghasem Attending Unavailable [facility] Unavailable ErikRocael helton Consulting Unavailable Ortiz Markham Consulting Unavailable Ashelfah, Ghasem Consulting Unavailable Ashelfah, Ghasem Admitting Unavailable Reinier Lang Attending Unavailable [facility] Unavailable Rocael Valencia Consulting Unavailable Ortiz Markham Consulting Unavailable Ashelfah, Ghasem Consulting Unavailable Ashelfah, Ghasem Admitting Unavailable Rocael Valencia Attending Unavailable [facility] Unavailable Rocael Valencia Consulting Unavailable Ortiz Markham Consulting Unavailable Ashelfah, Ghasem Consulting Unavailable Ashelfah, Ghasem Admitting Unavailable Viviana Childers NP-C Attending Unavailable [facility] Unavailable Rocael Valencia Consulting Unavailable Ortiz Markham Consulting Unavailable Ashelfah, Ghasem Consulting Unavailable Ashelfah, Ghasem Admitting Unavailable Ashelfah, Ghasem Attending Unavailable [facility] Unavailable Rocael Valencia Consulting Unavailable Ortiz Markham Consulting Unavailable Ashelfah, Ghasem Consulting Unavailable Ashelfah, Ghasem Admitting Unavailable Reinier Lang Attending Unavailable [facility] Unavailable Rocael Valencia Consulting Unavailable Ortiz Markham Consulting Unavailable Ashelfah, Ghasem Consulting Unavailable Ashelfah, Ghasem Admitting Unavailable Rocael Valencia Attending Unavailable [facility] Unavailable Rocael Valencia Consulting Unavailable Ortiz Markham Consulting Unavailable Ashelfah, Ghasem Consulting Unavailable Ashelfah, Ghasem Admitting Unavailable Viviana Childers NP-C Attending Unavailable [facility] Unavailable Rocael Valencia Consulting Unavailable Ortiz Markham Consulting Unavailable Ashelfah, Ghasem Consulting Unavailable Ashelfah, Ghasem Admitting Unavailable Ashelfah, Ghasem Attending Unavailable Clive, Mat Primary Care Unavailable Ashelfah, Ghasem Consulting Unavailable Severiano Kumar Attending Unavailable Severiano Kumar Referring Unavailable Duffy, Mat Primary Care Unavailable Norbert Bond Attending Unavailable Mat Duffy Referring Unavailable Norbert Bond Attending Unavailable Jolliff, Zeenat Primary Care Unavailable Norbert Bond Attending Unavailable Mat Duffy Referring Unavailable Alice, Jayaprakash Attending Unavailable Alice, Jayaprakash Referring Unavailable Jolliff, Zeenat Primary Care Unavailable Alice, Jayaprakash Attending Unavailable Alice, Jayaprakash Referring Unavailable Jolliff, Zeenat Primary Care Unavailable Norbert Bond Consulting Unavailable Anoop Angeles Attending Unavailable Jolliff, Zeenat Referring Unavailable Norbert Bond Attending Unavailable Mat Duffy Referring Unavailable Rocael Valencia Attending Unavailable Mat Duffy Referring Unavailable Alice, Jayaprakash Attending Unavailable Alice, Jayaprakash Referring Unavailable Jolliff, Zeenat Primary Care Unavailable Alice, Jayaprakash Attending Unavailable Alice, Jayaprakash Referring Unavailable Clive, Mat Primary Care Unavailable Adriana Jovel VEHICLE REFINISHER-C Attending Unavailable Mat Duffy Primary Care Unavailable Adriana Jovel NP-Porter Attending Unavailable Clive, Mat Primary Care Unavailable Alice, Jayaprakash Attending Unavailable Alice, Jayaprakash Referring Unavailable Clive, Mat Primary Care Unavailable Alice, Jayaprakash Attending Unavailable Aydin Carroll D.O. Attending Unavailable Josi Hickman Referring Unavailable Alice, Jayaprakash Attending Unavailable Mat Duffy Primary Care Unavailable Alice, Jayaprakash Referring Unavailable Jolliff, Zeenat Consulting Unavailable Alice, Jayaprakash Attending Unavailable Mat Duffy Primary Care Unavailable Alice, Jayaprakash Attending Unavailable Alice, Jayaprakash Referring Unavailable Clive, Mat Primary Care Unavailable Anoop Angeles Attending Unavailable Mat Duffy Referring Unavailable Alice, Jayaprakash Attending Unavailable Alice, Jayaprakash Referring Unavailable Clive, Mat Primary Care Unavailable Aydin Carroll D.O. Attending Unavailable Vick, Josi Referring Unavailable Vick, Josi Attending Unavailable Hickman, Josi Referring Unavailable Duffy, Mat Primary Care Unavailable Vick, Josi Attending Unavailable Clive, Mat Referring Unavailable Alice, Jayaprakash Attending Unavailable Alice, Jayaprakash Referring Unavailable Duffy, Mat Primary Care Unavailable Evangelina Hendricks PA-C Attending Unavailable Duffy, Mat Referring Unavailable Duffy, Mat Primary Care Unavailable DUFFY, YAQUELIN Attending Unavailable DUFFY, YAQUELIN Referring Unavailable DUFFY, YAQUELIN Attending Unavailable RENY BANDA (ROUGH ROUNDER) Attending Unavailable MARNIE NIELSON Attending Unavailable BEREKET HAMMER (VEHICLE REFINISHER) Attending Unavailable BEREKET HAMMER (VEHICLE REFINISHER) Referring Unavailable BIANCA LOBO Admitting Unavailable VANI HODGE Attending Unavailable SARTHAK MENDOZA Consulting Unavailable Mat Duffy MD Primary Care Unavailable BIANCA LOBO Admitting Unavailable ALICE, JAYAPRAKASH R Consulting Unavailable VANI HODGE Attending Unavailable SARTHAK MENDOZA Consulting Unavailable PROBLEMS PROBLEMS DATE TYPE CONDITION / CODE ATTENDING STATUS SOURCE Unknown I50.33 - Acute on Bond, Active Philip 9 chronic diastolic [facility] (congestive) heart Hospital failure / Repository I50.33(ICD-10) Unknown N18.5 - Chronic kidney Bond, Active Christopher 9 disease, stage 5 / [facility] N18.5(ICD-10) Hospital Repository Unknown I48.0 - Paroxysmal Bond, Active Philip 9 atrial fibrillation / [facility] I48.0(ICD-10) Hospital Repository Unknown N18.3 - Chronic kidney Alice, Active Christopher 8 disease, stage 3 [facility] (moderate) / Hospital N18.3(ICD-10) Repository Unknown N18.4 - Chronic kidney Alice, Active Philip 8 disease, stage 4 [facility] (severe) / Hospital N18.4(ICD-10) Repository Unknown E55.9 - Vitamin D Alice, Active Philip 8 deficiency, Jayaprakash Community unspecified / Hospital E55.9(ICD-10) Repository Unknown T82.898A - Other Anoop Angeles Active Philip 8 specified complication Community of vascular prosthetic Hospital devices, implants and Repository grafts, initial encounter / T82.898A(ICD-10) Unknown J96.21 - Acute and Aydin Carroll Active Christopher 8 chronic respiratory D.O. Community failure with hypoxia / Hospital J96.21(ICD-10) Repository Unknown J96.22 - Acute and Aydin Glen Active Christopher 8 chronic respiratory D.O. Community failure with Hospital hypercapnia / Repository J96.22(ICD-10) Unknown J44.9 - Chronic Aydin Carroll Active Philip 8 obstructive pulmonary D.O. Community disease, unspecified / Hospital J44.9(ICD-10) Repository Unknown R94.31 - Abnormal Danelle, Darien Active Philip 8 electrocardiogram Community [ECG] [EKG] / Hospital R94.31(ICD-10) Repository Unknown G89.18 - Other acute Anoop Angeles Active Christopher 8 postprocedural pain / Community G89.18(ICD-10) Hospital Repository Unknown R06.02 - Shortness of MoodisReinier concepcion Active Christopher 8 breath / Community R06.02(ICD-10) Hospital Repository Unknown R00.1 - Bradycardia, Reinier Lang Active Christopher 8 unspecified / Community R00.1(ICD-10) Hospital Repository Active Acute [facility], [facility] [place] unspecified / [facility] Other N17.9(ICD-10) [place] Repository Active Heart failure, [facility] Active [place] 8 unspecified / [facility] Other I50.9(ICD-10) [place] Repository Active Obesity, unspecified / [facility] Active [place] 8 E66.9(ICD-10) [facility] Other [place] Repository Active Body mass index (bmi) [facility] Active [place] 8 36.0-36.9, adult / [facility] Other Z68.36(ICD-10) [place] Repository Active Obstructive sleep RAZACK, [place] [address] apnea (adult) [facility] Other (pediatric) / [place] G47.33(ICD-10) Repository Active Pleural effusion, not RAZACK, [place] [address] elsewhere classified / [facility] Other J90(ICD-10) [place] Repository Active Acute and chronic RAZACK, [place] [address] respiratory failure [facility] Other with hypoxia / [place] J96.21(ICD-10) Repository Active Acute on chronic RAZACK, [facility] Active [place] [address] diastolic (congestive) [facility] Other heart failure / [place] I50.33(ICD-10) Repository Active Secondary pulmonary RAZACK, [place] [address] arterial hypertension [facility] Other / I27.21(ICD-10) [place] Repository Active Arteritis, unspecified [facility] [place] [address] / I77.6(ICD-10) [facility] Other [place] Repository Active Acute systolic RAZACK, [place] [address] (congestive) heart [facility] Other failure / [place] I50.21(ICD-10) Repository Admitting Unknown / UNK(Unknown) [facility]A [facility] [place] [address] diagnosis Health System Repository Active Unknown / UNK(Unknown) MARNIE NIELSON [address] [place] Repository PROCEDURES PROCEDURES No Procedure Records FoundRESULTS RESULTS CARDIOLOGY VISIT Observed: 10/28/2018 Status: F Source: VAUGHN REPORT 4:01 PM [facility] REPOSITORY [facility] [address] [place] [address] OFFICE VISIT Date of Service: 10/28/18 MR#: [id number] Acct: [id number] Name: MICHAEL GARCIA Rep #: [id number] : 1945 Provider: Norbert Bond Age/Sex: 72/F Location: [facility] Status: Signed HPI HPI Details: MICHAEL GARCIA, is a 72 F who presents to the office today for a follow up for concerns over increase in weight and SOB. She did have 3 days of IV lasix and was to see the materials technician. She has a history of diastolic heart [...] meq PO DAILY 10/21/18 [History Confirmed 10/21/18] [facility] Medical History Chronic renal insufficiency, stage V [...] F Source: CHRISTOPHER PROFILE (BMP) 12:06 PM [facility] REPOSITORY TYPE CODE TESTS RESULT OUT OF [...] GAP 6 Performed By: #### L500.2500 #### [facility] [address] [place], [address] CARDIOLOGY VISIT Observed: 10/22/2018 Status: F Source: VAUGHN REPORT 5:38 PM [facility] REPOSITORY [facility] [address] [place] [address] OFFICE VISIT Date of Service: 10/21/18 MR#: [id number] Acct: [id number] Name: MICHAEL GARCIA Rep #: [id number] : 1945 Provider: Norbert Bond Age/Sex: 72/F Location: [facility] Status: Signed HPI HPI Chief Complaint: recheck [...] brachial Intake Visit Reasons: 6 wk FU Profile Grinder Required: No Accompanied by: Is patient in [...] meq PO DAILY 10/21/18 [History Confirmed 10/21/18] [facility] Medical History Chronic renal insufficiency, stage [...] Observed: 10/21/2018 Status: F Source: CHRISTOPHER BY [facility] 2:37 PM [facility] REPOSITORY [facility] [address] [place] [id number] 12 Lead EKG performed by [facility] 10/21/18 1437 MR#: [id number] Acct: [id number] Name: MICHAEL GARCIA Rep #: [id number] : 1945 72 From: Norbert SHAFFER Attending Dr: Norbert Bond Status: DEP AMB Ordering Dr: Norbert Bond Date: 10/21/18 Location: [facility] Sex: F C Admitted: BMS/12 Lead EKG performed by [facility] ECG Report Interpretation Sinus Bradycardia -Left axis -anterior fascicular block. -Old anterior infarct. Low voltage with rightward P-axis and rotation -possible pulmonary disease. ABNORMAL Electronically signed on 10/27/2018 at 13:29 by Darien Mcclendon Software Version [id number] 10/27/18 1334 Date Norbert SHAFFER CC: Mat Duffy MD Date Dictated: 10/21/181436 Date Transcribed: 10/21/181436 Orchid Worker: CHARLOTTE Signed KIDNEY AND BLADDER Observed: 10/01/2018 Status: F Source: CHRISTOPHER 12:08 PM [facility] REPOSITORY [facility] [address] [place] [address] Kidney and Bladder MR#: [id number] Acct: [id number] Name: MICHAEL GARCIA Rep #: [id number] : 1945 F 72 From: Luisa Mcnulty MD PCP: Zeenat Harp MD Status: REG CLI Study: Kidney and Bladder Date of Exam: 10/01/18 Exam# [id number] Ordering Dr: Trell Jenkins MD STUDY: RENAL [...] CC: Zeenat Harp MD; Domingo Jenkins M.D. Orchid Worker: Signed CBC-COMPLETE BLOOD CNT Collected: 09/18/2018 Status: F Source: VAUGHN NO DIFF 1:30 PM [facility] REPOSITORY Order Comment: GABBY WANTS THE BMP [...] MPV 9.4 Performed By: #### L100.0500 #### [facility] [place], [address] PROTEIN+CREATININE Collected: Status: F Source: CHRISTOPHER RATIO,URINE 09/18/2018 1:30 PM [facility] REPOSITORY Order Comment: GABBY WANTS THE [facility] ALICE WANTS THE PROCRE PTH VITD CBC BMP ALB TYPE CODE TESTS RESULT OUT OF RANGE REFERENCE UNITS LAB L501.1200 NO RANGE EST. mg/dL Normal UR CREAT 58.00 LAB L501.1930 <11.9 mg/dL High 88.0 PROTEIN,UR.R AN. LAB L501.1940 0-200 mg/g CRE High PROT:CRE 1517 RATIO Performed By: #### L501.0900 #### [facility] [address] [place], [place], [id number] PTHIN Collected: 09/18/2018 Status: F Source: CHRISTOPHER 1:30 PM [facility] REPOSITORY Order Comment: GABBY WANTS THE BMP ALICE WANTS THE PROCRE PTH VITD CBC BMP ALB TYPE CODE TESTS RESULT OUT OF RANGE REFERENCE UNITS LAB L509.1000 18.4-80.1 pg/mL High PTHIN 102.8 Performed By: #### L509.1000 #### [facility] [address] [place], [place], [address] VITAMIN D,25 HYDROXY Collected: 09/18/2018 Status: F Source: CHRISTOPHER 1:29 PM [facility] REPOSITORY Order Comment: GABBY WANTS THE BMP [...] (>250 nmol/L) Performed By: #### L506.1000 #### [facility] [address] [place], [place], [address] BASIC METABOLIC Collected: 09/18/2018 Status: F Source: CHRISTOPHER PROFILE (BMP) 1:27 PM [facility] REPOSITORY Order Comment: GABBY WANTS THE [facility] ALICE WANTS THE PROCRE PTH VITD CBC [...] 5 Performed By: #### L500.2500, L501.1800 #### [facility] [address] [place], [place], [address] ALBUMIN, SERUM Collected: 09/18/2018 Status: F Source: CHRISTOPHER 1:27 PM [facility] REPOSITORY Order Comment: GABBY WANTS THE [facility] ALICE WANTS THE PROCRE PTH VITD CBC BMP ALB TYPE CODE TESTS RESULT OUT OF RANGE REFERENCE UNITS LAB L501.1800 3.2-5.0 g/dL Normal ALB 3.4 Performed By: #### L500.2500, L501.1800 #### [facility] [address] [place], [place], [address] CARDIOLOGY VISIT Observed: 09/14/2018 Status: F Source: VAUGHN REPORT 7:29 AM [facility] REPOSITORY [facility] [address] [place] [address] OFFICE VISIT Date of Service: 09/09/18 MR#: [id number] Acct: [id number] Name: MICHAEL GARCIA Rep #: [id number] : 1945 Provider: Norbert Bond Age/Sex: 72/F Location: [facility] Status: Signed HPI HPI Chief Complaint: post [...] brachial Intake Visit Reasons: 4 M FU Profile Grinder Required: No Is patient in pain?: No [...] us next week after she sees a materials technician with an update on nephrology's input in [...] VISIT REPORT Observed: 09/09/2018 Status: F Source: VAUGHN 3:09 PM [facility] REPOSITORY [facility] [address] [place] [address] OFFICE VISIT Date of Service: 09/09/18 MR#: [id number] Acct: [id number] Name: MICHAEL GARCIA Rep #: [id number] : 1945 Provider: Anoop Angeles MD Age/Sex: 72/F Location: [facility] Status: Signed Intake Vital Signs09/09/18 Body Mass Index (BMI) 36.6 Intake Visit Reasons: Fistula Check - Per patient's is due Chief Complaint: recheck fistula Profile Grinder Required: No Is patient in pain?: No [...] She does have multiple medical comorbidities. Her materials technician is Exam Extrem Other: Left forearm: Well-healed [...] Observed: 09/09/2018 Status: F Source: CHRISTOPHER BY [facility] 1:35 PM [facility] REPOSITORY [facility] [address] [place] [address] 12 Lead EKG performed by ASIA 09/09/18 1334 MR#: [id number] Acct: [id number] Name: MICHAEL GARCIA Rep #: [id number] : 1945 72 From: Norbert SHAFFER Attending Dr: Norbert Bond Status: DEP AMB Ordering Dr: Norbert Bond Date: 09/09/18 Location: [facility] Sex: F C Admitted: BMS/12 Lead EKG performed by [facility] ECG Report Interpretation [...] Date Dictated: 09/09/18 1334 Date Transcribed: 09/09/181333 Orchid Worker: CHARLOTTE Signed PULMONARY VISIT REPORT Observed: 09/09/2018 Status: F Source: VAUGHN 11:03 AM [facility] REPOSITORY [facility] Pulmonary Medicine of [address] [place] [address] OFFICE VISIT Date of Service: 09/09/18 MR#: [id number] Acct: [id number] Name: MICHAEL GARCIA Rep #: [id number] : 1945 Provider: Rocael Valencia MD Age/Sex: 72/F Location: [facility] Status: Signed Assessment [...] Cantu Plan Detail Follow Up 3 Months ([facility]) HPI 3 M FU: Chief Complaint: Shortness [...] 03/01/18 [History Confirmed 09/09/18] Hydrocodone Bitart/Apap 5-325 [Alfred 5MG-325MG] 1 tab PO Q6H PRN PRN [...] BLOOD CNT Collected: 08/10/2018 Status: F Source: CHRISTOPHER NO DIFF 10:09 AM [facility] REPOSITORY TYPE CODE TESTS RESULT OUT OF [...] MPV 9.4 Performed By: #### L100.0500 #### [facility] [address] [place], [address] PROTEIN+CREATININE Collected: Status: F Source: CHRISTOPHER RATIO,URINE 08/10/2018 10:09 AM [facility] REPOSITORY TYPE CODE TESTS RESULT OUT OF RANGE REFERENCE UNITS LAB L501.1200 NO RANGE EST. mg/dL Normal UR CREAT 79.60 LAB L501.1930 <11.9 mg/dL High 60.0 PROTEIN,UR.R AN. LAB L501.1940 0-200 mg/g CRE High PROT:CRE 754 RATIO Performed By: #### L501.0900 #### [facility] [address] [facility] [place], [place], [address] RENAL PROFILE Collected: 08/10/2018 Status: F Source: CHRISTOPHER 10:09 AM [facility] REPOSITORY TYPE CODE TESTS RESULT OUT OF [...] CO2 30.0 Performed By: #### L500.3600 #### [facility] [address] [place], [place], [address] PTHIN Collected: 08/10/2018 Status: F Source: CHRISTOPHER 10:09 AM [facility] REPOSITORY TYPE CODE TESTS RESULT OUT OF RANGE REFERENCE UNITS LAB L509.1000 18.4-80.1 pg/mL High PTHIN 169.7 Performed By: #### L509.1000 #### [facility] [address] [place], [address] VITAMIN D,25 HYDROXY Collected: 08/10/2018 Status: F Source: CHRISTOPHER 10:09 AM [facility] REPOSITORY TYPE CODE TESTS RESULT OUT OF RANGE REFERENCE UNITS LAB L506.1000 29.95-100.01 ng/mL Normal Vitamin D 37.3 25-OH Result Comment: Vitamin D 25(OH) Status Range Deficiency <20 ng/mL (50nmol/L) Insuffciency 20 - 30 ng/mL (50 - 75 nmol/L) Sufficiency 30 - 100 ng/mL (75 - 250 nmol/L) Toxicity >100 ng/mL (>250 nmol/L) Performed By: #### L506.1000 #### [facility] [address] [place], [address] HEMOGLOBIN A1C Collected: 06/24/2018 Status: F Source: CHRISTOPHER 11:43 AM [facility] REPOSITORY Order Comment: PLEASE SEND RESULTS TO DR. JENKINS AND DR HOUSE BOTH PER PT REQUEST. TYPE CODE TESTS RESULT OUT OF RANGE REFERENCE UNITS LAB L501.9985 4.2-6.3 % High HGB A1C 7.9 Performed By: #### L501.9985 #### [facility] [address] [place], [address] CBC-COMPLETE BLOOD CNT Collected: 06/24/2018 Status: F Source: CHRISTOPHER NO DIFF 11:26 AM [facility] REPOSITORY TYPE CODE TESTS RESULT OUT OF [...] MPV 9.9 Performed By: #### L100.0500 #### [facility] [address] [place], [address] PROTEIN+CREATININE Collected: Status: F Source: CHRISTOPHER RATIO,URINE 06/24/2018 11:26 AM [facility] REPOSITORY Order Comment: PLEASE SEND RESULTS TO DR. JENKINS AND DR HOUSE BOTH PER PT REQUEST. TYPE CODE TESTS RESULT OUT OF RANGE REFERENCE UNITS LAB L501.1200 NO RANGE EST. mg/dL Normal UR CREAT 110.00 LAB L501.1930 <11.9 mg/dL High 34.1 PROTEIN,UR.R AN. LAB L501.1940 0-200 mg/g CRE High PROT:CRE 310 RATIO Performed By: #### L501.0900 #### [facility] [address] [place], [address] PTHIN Collected: 06/24/2018 Status: F Source: CHRISTOPHER 11:26 AM [facility] REPOSITORY Order Comment: PLEASE SEND RESULTS TO DR. JENKINS AND DR HOUSE BOTH PER PT REQUEST. TYPE CODE TESTS RESULT OUT OF RANGE REFERENCE UNITS LAB L509.1000 18.4-80.1 pg/mL High PTHIN 219.2 Performed By: #### L509.1000 #### [facility] [address] [place], [address] VITAMIN D,25 HYDROXY Collected: 06/24/2018 Status: F Source: CHRISTOPHER 11:26 AM [facility] REPOSITORY Order Comment: PLEASE SEND RESULTS TO [...] (>250 nmol/L) Performed By: #### L506.1000 #### [facility] [address] [place], [address] PROTEIN, TOTAL Collected: 06/24/2018 Status: F Source: VAUGHN 11:26 AM [facility] REPOSITORY Order Comment: PLEASE SEND RESULTS TO DR. JENKINS AND DR HOUSE BOTH PER PT REQUEST. TYPE CODE TESTS RESULT OUT OF RANGE REFERENCE UNITS LAB L501.1500 6.4-8.2 g/dL Normal T PROT 8.0 LAB L501.1950 2.2-4.2 g/dL High GLOB 4.7 LAB L501.2000 0.9-2.4 RATIO Low A/G 0.7 Performed By: #### L001.0705, L500.3600, L500.4100, L501.4100, L501.4305, L501.4405, L501.4600, L501.4700 #### [facility] [address] [place], [address] RENAL PROFILE Collected: 06/24/2018 Status: F Source: VAUGHN 11:26 AM [facility] REPOSITORY Order Comment: PLEASE SEND RESULTS TO [...] L500.4100, L501.4100, L501.4305, L501.4405, L501.4600, L501.4700 #### [facility] [address] [place], [address] LIPID PROFILE Collected: 06/24/2018 Status: F Source: VAUGHN 11:26 AM [facility] REPOSITORY Order Comment: PLEASE SEND RESULTS TO [...] L500.4100, L501.4100, L501.4305, L501.4405, L501.4600, L501.4700 #### [facility] [address] [place], [place], [id number] (786) AST(SGOT) Collected: 06/24/2018 Status: F Source: VAUGHN 11:26 AM [facility] REPOSITORY Order Comment: PLEASE SEND RESULTS TO DR. JENKINS AND DR HOUSE BOTH PER PT REQUEST. TYPE CODE TESTS RESULT OUT OF RANGE REFERENCE UNITS LAB L501.4100 15-37 U/L Low AST 7 Performed By: #### L001.0705, L500.3600, L500.4100, L501.4100, L501.4305, L501.4405, L501.4600, L501.4700 #### [facility] [address] [place], [place], [address] ALKALINE PHOSPHATASE Collected: 06/24/2018 Status: F Source: VAUGHN 11:26 AM [facility] REPOSITORY Order Comment: PLEASE SEND RESULTS TO DR. JENKINS AND DR HOUSE BOTH PER PT REQUEST. TYPE CODE TESTS RESULT OUT OF RANGE REFERENCE UNITS LAB L501.4305 45-117 U/L Normal ALK P 111 Performed By: #### L001.0705, L500.3600, L500.4100, L501.4100, L501.4305, L501.4405, L501.4600, L501.4700 #### [facility] [address] [place], [place], [address] ALANINE AMINOTRANSFERAS Collected: 06/24/2018 Status: F Source: VAUGHN (SGPT) 11:26 AM [facility] REPOSITORY Order Comment: PLEASE SEND RESULTS TO DR. JENKINS AND DR HOUSE BOTH PER PT REQUEST. TYPE CODE TESTS RESULT OUT OF RANGE REFERENCE UNITS LAB L501.4405 13-56 U/L Normal ALT 15 Performed By: #### L001.0705, L500.3600, L500.4100, L501.4100, L501.4305, L501.4405, L501.4600, L501.4700 #### [facility] [address] [place], [place], [address] TOTAL BILIRUBIN Collected: 06/24/2018 Status: F Source: VAUGHN 11:26 AM [facility] REPOSITORY Order Comment: PLEASE SEND RESULTS TO DR. JENKINS AND DR HOUSE BOTH PER PT REQUEST. TYPE CODE TESTS RESULT OUT OF RANGE REFERENCE UNITS LAB L501.4600 0.20-1.00 mg/dL Normal T BILI 0.50 Performed By: #### L001.0705, L500.3600, L500.4100, L501.4100, L501.4305, L501.4405, L501.4600, L501.4700 #### [facility] [address] [place], [place], [address] BILIRUBIN, DIRECT Collected: 06/24/2018 Status: F Source: VAUGHN 11:26 AM [facility] REPOSITORY Order Comment: PLEASE SEND RESULTS TO DR. JENKINS AND DR HOUSE BOTH PER PT REQUEST. TYPE CODE TESTS RESULT OUT OF RANGE REFERENCE UNITS LAB L501.4700 0.00-0.30 mg/dL Normal D BILI 0.19 Performed By: #### L001.0705, L500.3600, L500.4100, L501.4100, L501.4305, L501.4405, L501.4600, L501.4700 #### [facility] [address] [place], [place], [address] RENAL PROFILE Collected: 06/09/2018 Status: F Source: VAUGHN 7:41 AM [facility] REPOSITORY TYPE CODE TESTS RESULT OUT OF [...] CO2 28.0 Performed By: #### L500.3600 #### [facility] [address] [facility] [place], [address] SURGERY VISIT REPORT Observed: 06/04/2018 Status: F Source: VAUGHN 8:03 AM [facility] REPOSITORY [place] [facility] [address] [place] [address] OFFICE VISIT Date of Service: 06/04/18 MR#: [id number] Acct: [id number] Name: MICHAEL GARCIA Rep #: [id number] : 1945 Provider: Anoop Angeles MD Age/Sex: 72/F Location: [facility] Status: Signed Intake Intake Visit Reasons: [...] 03/01/18 [History Confirmed 04/28/18] Hydrocodone Bitart/Apap 5-325 [Alfred 5MG-325MG] 1 tab PO Q6H PRN PRN [...] were provided. Anoop Angeles M.D., F.A.C.S. Port/Peg [id number] Dialysis Cath Remov Assessment AND Plan Problems 1. Problem with dialysis access, initial encounter T82.520P Plan Successfully removed right internal jugular dialysis catheter. Very nicely functioning transposed left forearm cephalic vein to radial artery arteriovenous fistula. Not currently on hemodialysis. The patient will return to my office in 3 months time for routine surgical follow-up regarding her left forearm AV fistula. Anoop [place] M.D., F.A.C.S. Orders Orders: Coding Level of Care Code Attention Trading Manager Diagnoses Problem with dialysis access, initial encounter T82.518A Encounter type: initial encounter Additional Codes Port/Peg - Port/Pe Dialysis Cath Remov (62170) 06/04/18 0803 <Electronically signed by Anoop [place] MD> Date Anoop Cuellar Signature: Date (if applicable) CC: BASIC METABOLIC Collected: 06/01/2018 Status: F Source: CHRISTOPHER PROFILE (BMP) 9:37 AM [facility] REPOSITORY TYPE CODE TESTS RESULT OUT OF [...] 8 Performed By: #### L500.2500, L500.3600 #### [facility] [address] [place], [address] RENAL PROFILE Collected: 06/01/2018 Status: F Source: CHRISTOPHER 9:37 AM [facility] REPOSITORY TYPE CODE TESTS RESULT OUT OF [...] 3.0 Performed By: #### L500.2500, L500.3600 #### [facility] [address] [place], [address] BASIC METABOLIC Collected: 05/25/2018 Status: F Source: VAUGHN PROFILE (BMP) 1:14 PM [facility] REPOSITORY TYPE CODE TESTS RESULT OUT OF [...] GAP 12 Performed By: #### L500.2500 #### [facility] [address] [place], [address] SURGERY VISIT REPORT Observed: 05/19/2018 Status: F Source: VAUGHN 1:18 PM [facility] REPOSITORY [facility] [address] [place] [address] OFFICE VISIT Date of Service: 05/19/18 MR#: [id number] Acct: [id number] Name: MICHAEL GARCIA Rep #: [id number] : 1945 Provider: Anoop [place] MD Age/Sex: 72/F Location: [facility] Status: Signed Intake Intake Visit Reasons: Fistula Creation 04/02 Chief Complaint: post fistula placement Profile Grinder Required: No Is patient in pain?: No [...] 03/01/18 [History Confirmed 04/28/18] Hydrocodone Bitart/Apap 5-325 [Alfred 5MG-325MG] 1 tab PO Q6H PRN PRN [...] Anoop Cuellar Signature: Date (if applicable) CC: Domingo Jenkins M.D.; Mat Duffy MD 6 MINUTE WALK TEST Observed: 05/19/2018 Status: F Source: CHRISTOPHER 11:01 AM [facility] REPOSITORY [facility] Pulmonary Services/Neurology [address] [place] [address] MR#: [id number] Acct: [id number] Name: MICHAEL GARCIA Rep #: [id number] : 1945 72 From: Aydin Carroll DO Referring Dr: Josi Hickman NP Date: Ordering Dr: Sex: F C Location: PSN PSN 6 Minute Walk Test - 6 Minute Walk Test 6 Minute Walk Test: 6 Minute Walk Test PSN:6-Minute Walk Test Start: 05/19/18 08:35 Freq: Status: Active Protocol: RESP.6MINW Document 05/19/18 08:35 SFENTON (Rec: 05/19/18 08:41 SFENTON [id number]) 6 Minute Walk Test Date Performed 05/19/18 [...] CC: Date Dictated: 05/19/181058 Date Transcribed: 05/19/181058 Orchid Worker: Aydin Carroll DO Signed BASIC METABOLIC Collected: 05/19/2018 Status: F Source: CHRISTOPHER PROFILE ([facility]) 7:46 AM [facility] REPOSITORY TYPE CODE TESTS RESULT OUT OF [...] GAP 10 Performed By: #### L500.2500 #### [facility] [address] [place], [place], [address] PULMONARY VISIT REPORT Observed: 05/14/2018 Status: F Source: CHRISTOPHER 8:44 AM [facility] REPOSITORY Pulmonary Medicine of [address] [place], [place] [address] OFFICE VISIT Date of Service: 05/13/18 MR#: [id number] Acct: [id number] Name: MICHAEL GARCIA Rep #: [id number] : 1945 Provider: Josi Hickman Age/Sex: 72/F Location: [facility] Status: Signed Assessment [...] 03/01/18 [History Confirmed 04/28/18] Hydrocodone Bitart/Apap 5-325 [Alfred 5MG-325MG] 1 tab PO Q6H PRN PRN [...] G47.33 05/14/18 0844 <Electronically signed by Josi RICHARDC> Date Josi RICHARDC Cosigner Signature: Date (if applicable) CC: Mat Duffy MD BASIC METABOLIC Collected: 05/12/2018 Status: F Source: CHRISTOPHER PROFILE ([facility]) 6:42 AM [facility] REPOSITORY TYPE CODE TESTS RESULT OUT OF [...] GAP 12 Performed By: #### L500.2500 #### [facility] [address] [place], [address] BASIC METABOLIC Collected: 05/07/2018 Status: F Source: VAUGHN PROFILE ([facility]) 12:39 PM [facility] REPOSITORY TYPE CODE TESTS RESULT OUT OF [...] GAP 8 Performed By: #### L500.2500 #### [facility] [address] [place], [address] SURGERY VISIT REPORT Observed: 04/28/2018 Status: F Source: VAUGHN 1:35 PM [facility] REPOSITORY [facility] [address] [place] [address] OFFICE VISIT Date of Service: 04/28/18 MR#: [id number] Acct: [id number] Name: MICHAEL GARCIA Rep #: [id number] : 1945 Provider: Evangelina Hendricks PA-C Age/Sex: 72/F Location: [facility] Status: Signed Intake Intake Visit Reasons: Fistula Creation 04/02 Chief Complaint: post fistula placement Profile Grinder Required: No Is patient in pain?: No [...] 03/01/18 [History Confirmed 04/28/18] Hydrocodone Bitart/Apap 5-325 [Alfred 5MG-325MG] 1 tab PO Q6H PRN PRN 2 Days #5 tab 04/02/18 [Rx Confirmed 04/28/18] furosemide 40 mg tablet 40 mg PO .COMPLEX 04/06/18 [History Confirmed 04/28/18] pantoprazole 40 mg tablet,delayed release 40 mg PO QDAY 04/06/18 [History Confirmed 04/28/18] amiodarone 200 mg tablet 200 mg PO QDAY 04/28/18 [History Confirmed 04/28/18] [facility] Medical History Chronic renal insufficiency, stage V [...] have chest catheters. Dr. Jenkins is her materials technician. She continues to perform hand exercises. She [...] PULMONARY FUNCTION Observed: 04/21/2018 Status: F Source: VAUGHN TEST 2:02 PM [facility] REPOSITORY [facility] Pulmonary Services/Neurology [address] [place] [address] MR#: [id number] Acct: [id number] Name: MICHAEL GARCIA Travis Rep #: [id number] : 1945 72 From: Aydin Carroll DO Referring Dr: Josi Hickman VEHICLE REFINISHER Status: REG CLI Ordering Dr: Date: Location: [facility] Sex: F C INTRODUCTION: The patient [...] Date Dictated: 04/21/18 135 Date Transcribed: 04/21/181356 Orchid Worker: IRVING Signed CARDIOLOGY VISIT Observed: 04/13/2018 Status: F Source: VAUGHN REPORT 10:22 AM [facility] REPOSITORY [facility] [address] [place] [address] OFFICE VISIT Date of Service: 04/07/18 MR#: [id number] Acct: [id number] Name: MICHAEL GARCIA Rep #: [id number] : 1945 Provider: Darien Mcclendon MD Age/Sex: 72/F Location: [facility] Status: Signed [facility] HPI Details: MICHAEL GARCIA, is a 72 [...] f/up (DC 03-03) - r/s from DT Profile Grinder Required: No Is patient in pain?: No [...] 03/01/18 [History Confirmed 04/07/18] Hydrocodone Bitart/Apap 5-325 [Alfred 5MG-325MG] 1 tab PO Q6H PRN PRN [...] prior to saving. Follow Up 4 Months ([facility]/MMM) Coding Level of Care Code Off vis,est,level [...] 04/07/2018 Status: F Source: CHRISTOPHER 4:04 PM [facility] REPOSITORY [facility] [address] [place] [address] OFFICE VISIT Date of Service: 04/07/18 MR#: [id number] Acct: [id number] Name: MICHAEL GARCIA Rep #: [id number] : 1945 Provider: Evangelina Hendricks PA-C Age/Sex: 72/F Location: [facility] Status: Signed Intake Intake Visit Reasons: Fistula Creation RC 04/02 Chief Complaint: post fistula placement Profile Grinder Required: No Is patient in pain?: No [...] 03/01/18 [History Confirmed 04/07/18] Hydrocodone Bitart/Apap 5-325 [Alfred 5MG-325MG] 1 tab PO Q6H PRN PRN [...] signed by Evangelina Hendricks PA-C> Date Evangelina Hendrikcs PA-C Cosigner Signature: Date (if applicable) CC: 12 LEAD ELECTROCARDIOGRAM Observed: 04/03/2018 Status: F Source: VAUGHN 10:09 AM [facility] REPOSITORY [facility] Cardiovascular Services [address] [place] [address] 12 Lead EKG 04/02/18 0636 MR#: [id number] Acct: [id number] Name: MICHAEL GARCIA Rep #: [id number] : 1945 72 From: Darien Mcclendon MD Attending Dr: Anoop Angeles MD Status: DEP [facility] Ordering Dr: Anoop [place] MD Date: 04/02/18 Location: [facility] Sex: F C Admitted: Test Reason : [...] leads Confirmed by DARIEN MCCLENDON MD ([id number]), technical writer and editor OSIEL HINES ([id number]) on 04/03/2018 10:08:33 AM Referred By: Anoop Angeles Confirmed By:DARIEN MCCLENDON MD 04/03/18 1008 Date Darien Mcclendon MD CC: Anoop Angeles MD; Mat Duffy MD Signed DISCHARGE INSTRUCTION Observed: 04/02/2018 Status: F Source: CHRISTOPHER 12:02 PM [facility] REPOSITORY [facility] Medical Records Department [address] [place] [address] Instructions for Home/Discharge Instructions 04/02/18 0851 MR#: [id number] Acct: [id number] Name: MICHAEL GARCIA Rep #: [id number] : 1945 72 From: Anoop [place] MD [...] mg PO DAILY 03/01/18 Hydrocodone Bitart/Apap 5-325 [Alfred 5MG-325MG] 1 tablet PO Q6H PRN PRN 2 Days #5 tablet 04/02/18 The following prescriptions were given: Hydrocodone Bitart/Apap 5-325 [Alfred 5MG-325MG] 1 tablet PO Q6H PRN PRN 2 Days #5 tablet PRN Reason: Pain Primary Care Physician: Mat Duffy MD [Primary Care Provider] - Please Follow Up With: Anoop [place] MD - [phone] When: Call to make an appointment for follow up in 10 days. 04/02/18 1202 <Electronically signed by Anoop Angeles MD> Date Anoop [place] MD CC: Mat Duffy MD OPERATIVE REPORT Observed: 04/02/2018 Status: F Source: VAUGHN 10:31 AM [facility] REPOSITORY [facility] Medical Records Department [address] [place] [address] Operative Report 04/02/18 1027 MR#: [id number] Acct: [id number] Name: MICHAEL GARCIA Rep #: [id number] : 1945 72 From: Anoop [place] MD PCP: Mat Duffy MD Status: [facility] Y Location: [place] [address] Problem List (1) Chronic renal insufficiency, stage [...] 04/02/2018 Status: F Source: CHRISTOPHER 6:55 AM [facility] REPOSITORY TYPE CODE TESTS RESULT OUT OF REFERENCE UNITS RANGE LAB L501.080 70-110 mg/dL High BEDSIDE GLU 210 Result Comment: MANAGEMENT OF PATIENT CARE PER NURSING PROTOCOL Performed By: #### L501.080 #### [facility] [address] [place], [place] [address] BASIC METABOLIC Collected: 04/02/2018 Status: F Source: VAUGHN PROFILE (BMP) 6:50 AM [facility] REPOSITORY TYPE CODE TESTS RESULT OUT OF [...] GAP 6 Performed By: #### L500.2500 #### [facility] [address] [place], [address] CBC-COMPLETE BLOOD CNT Collected: 04/02/2018 Status: F Source: CHRISTOPHER NO DIFF 6:50 AM [facility] REPOSITORY TYPE CODE TESTS RESULT OUT OF [...] MPV 9.3 Performed By: #### L100.0500 #### [facility] [address] 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 ([facility]) Primary 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 ([facility]) Ckd (Chronic Kidney Disease) Stage V Requiring Chronic Dialysis ([facility]) Hypoxemia Chronic Diastolic Chf (Congestive Heart Failure) ([facility]) Anemia in Stage 3 Chronic Kidney Disease Paroxysmal Atrial Fibrillation ([facility]) Peripheral Arterial Occlusive Disease ([facility]) Current Outpatient Prescriptions: acetaminophen (TYLENOL 8 HOUR [...] N18.6, Z99.2 On dialysis. Mat Duffy MD CNOV Observed: 03/05/2018 Status: COMPLETED Source: HENNESSEY 9:20 AM [facility] REPOSITORY Office Visit (INTMWS) MICHAEL GARCIA ([id number]) 1945 F BLD Date Time Provider Department 03/05/18 9:20 AM MAT DUFFY INTTravisWS During your visit today, we recorded the [...] Mat Duffy MD Referring Provider: MAT DUFFY [[id number]] Allergies As of Date: 03/05/2018 (No Known Allergies) Date Reviewed: 03/05/2018 Reviewed by: Mya Willams LPN - Fully Assessed Reason for Visit: F/U 3 Month [443] TCM [Other] Cmt: Discharged from [facility] 03/03/2018 Primary Visit Diagnosis:Acute on chronic respiratory [...] 03/05/2018 9:19 AM >> MYA WILLAMS LPN [facility] March 05, 2018 9:19 AM D/C by [...] VISIT REPORT Observed: 03/05/2018 Status: F Source: VAUGHN 8:[address] [facility] [address] [place] [address] [address] [place] [address] OFFICE VISIT Date of Service: 03/05/18 MR#: [id number] Acct: [id number] Name: GARCIAMICHAEL Travis Rep #: [id number] : 1945 Provider: Anoop Angeles MD Age/Sex: 72/F Location: [facility] Status: Signed Intake Vital Signs03/05/18 Height 5 ft 5 in 03/05/18 Weight: 209 lb 3 oz 03/05/18 Body Mass Index (BMI) 34.8 03/05/18 Blood Pressure 108/67 Intake Visit Reasons: fistula creation Chief Complaint: fistula placement Profile Grinder Required: No Is patient in pain?: No [...] today. On February 26, 2018 at the [facility] she had bilateral upper extremity vein mapping. This demonstrates that bilateral upper extremity cephalic and basilic veins are patent and compressible. Bilateral brachial and radial arteries demonstrate normal flow. The patient is right arm dominant. The patient was hospitalized at the [facility] January 19 - January 22 with acute [...] distress Nutritional Appearance: overweight Orientation: alert, awake [facility] Head: normal to inspection Eyes General: [...] create for her. It may require additional it assistant with balloon maturation. In addition it [...] LEAD ELECTROCARDIOGRAM Observed: 03/04/2018 Status: F Source: VAUGHN 2:39 PM [facility] REPOSITORY [facility] Cardiovascular Services [address] [place] [address] [place] [address] 12 Lead EKG 03/01/18 0937 MR#: [id number] Acct: [id number] Name: GARCIAMICHAEL Travis Rep #: [id number] : 1945 72 From: Reinier Lang MD Attending Dr: Mata Engle DO Status: DIS IN Ordering Dr: Severiano Nino MD Date: 03/01/18 Location: [facility] Sex: F C Admitted: 03/01/18 Test Reason [...] wave progression Confirmed by REINIER LANG MD ([id number]), technical writer and editor HONORIO SHEFFIELD ([id number]) on 03/04/2018 2:39:19 PM Referred By: Anoop Angeles Confirmed By:REINIER LANG MD 03/04/18 1439 Date Reinier Lang MD CC: SEVERIANO NINO MD; Mata Engle DO; Mat Duffy MD Signed DISCHARGE SUMMARY Observed: 03/03/2018 Status: F Source: CHRISTOPHER 9:11 AM [facility] REPOSITORY [facility] Medical Records Department [address] [place] [address] Discharge Summary 03/03/1808 MR#: [id number] Acct: [id number] Name: MICHAEL GARCIA Rep #: [id number] : 1945 72 From: Mata Engle DO PCP: Mat Duffy MD Status: ADM IN Location: [place] [address] Discharge Date and Diagnosis - Problem List Patient Problems: Active and Suspected Problems (Last Updated 01/22/18 @ 10:02 by MIKEY Norman) Acute hypercapnic respiratory failure (Acute) Lethargy (Acute) [...] Within 2 Weeks [facility] When: every Friday, Friday, Friday Disposition: Home Minutes spent on discharge:: 28 Patient Condition:: Good Medical Necessity - Tobacco Use Smoking Status: Former smoker Meaningful Use Info Meaningful Use Diagnoses (Choose all that apply): None applicable Code Visit Inpatient E AND M: 90102 Disch Hosp 03/03/18910 <Electronically signed by Mata Engle DO> Date Mata Engle DO Cosigner Signature (if applicable): Date CC: Mata Engle DO; Mat Duffy MD Signed DISCHARGE INSTRUCTION Observed: 03/03/2018 Status: F Source: VAUGHN 9:08 AM [facility] REPOSITORY [facility] Medical Records Department [address] [place] [address] Instructions for Home/Discharge Instructions 03/03/18905 MR#: [id number] Acct: [id number] Name: MICHAEL GARCIA Rep #: [id number] : 1945 72 From: Mata Engle DO PCP: Mat Duffy MD Status: ADM IN - Discharge Diagnoses Current Active Problems: Current Active and Chronic Problems (Last Updated 01/22/18 @ 10:02 by Viviana Childers, VEHICLE REFINISHER-C) Acute hypercapnic respiratory failure (Acute) Lethargy (Acute) [...] 2 Weeks [facility], Friday, Friday Proposed Discharge Date: 03/03/18 03/03/18 0908 <Electronically signed by Mata Engle DO> Date Mata Engle DO CC: Aydin Carroll D.O.; Domingo Jenkins M.D.; Mat Duffy MD BEDSIDE GLUCOSE Collected: 03/03/2018 Status: F Source: CHRISTOPHER 6:25 AM [facility] REPOSITORY TYPE CODE TESTS RESULT OUT OF REFERENCE UNITS RANGE LAB L501.080 70-110 mg/dL High BEDSIDE GLU 180 Result Comment: Insulin Given MANAGEMENT OF PATIENT CARE PER NURSING PROTOCOL Performed By: #### L501.080 #### [facility] Point of Care [address] [place] [address] BASIC METABOLIC Collected: 03/03/2018 Status: F Source: VAUGHN PROFILE (BMP) 5:20 AM [facility] REPOSITORY TYPE CODE TESTS RESULT OUT OF [...] GAP 10 Performed By: #### L500.2500 #### [facility] [address] [place], [address] CONSULTATION Observed: 03/03/2018 Status: F Source: VAUGHN 5:18 AM [facility] REPOSITORY [facility] Medical Records Department [address] [place] [address] Consultation 03/02/18 0844 MR#: [id number] Acct: [id number] Name: MICHAEL GARCIA Rep #: [id number] : 1945 72 From: Rocael Valencia MD PCP: Mat Duffy MD Status: ADM IN Y Location: [place] [address] Problem List (1) Lethargy Status: Acute (2) [...] medical history listed below, who presented to [facility] on 03/01/2019 after being found with decreased [...] Updated 01/22/18 @ 10:02 by Viviana Childers, VEHICLE REFINISHER-C) ESRD (end stage renal disease) on dialysis [...] Surgical History: cholecystectomy, rotator cuff repair, - BLASTING WORKER History: No pertinent BLASTING WORKER history Lives: Spouse/ Significant Other Smoking Status: Former smoker Drugs: None - *Family History Maternal History Items: Cancer, Diabetes, Renal Disease Paternal History Items: Diabetes, Heart Disease, Renal Disease Review of Systems Unable to obtain accurate/complete ROS d/t: Per , see HPI Patient Problems: Active and Suspected Problems (Last Updated 01/22/18 @ 10:02 by Viviana Childers, VEHICLE REFINISHER-C) Acute hypercapnic respiratory failure (Acute) Lethargy (Acute) [...] Updated 01/22/18 @ 10:02 by Viviana Childers, VEHICLE REFINISHER-C) Acute hypercapnic respiratory failure (Acute) Lethargy (Acute) [...] therapy. Code Visit Inpatient E AND M: 30846 Init Hosp L3 03/03/18517 <Electronically signed by Rocael Valencia MD> Date Rocael Valencia MD Cosigner Signature (if applicable): Date CC: Aydin Carroll D.O.; Domingo Jenkins M.D.; Mat Duffy MD Signed BEDSIDE GLUCOSE Collected: 03/02/2018 Status: F Source: CHRISTOPHER 11:26 PM [facility] REPOSITORY TYPE CODE TESTS RESULT OUT OF REFERENCE UNITS RANGE LAB L501.080 70-110 mg/dL High BEDSIDE GLU 176 Result Comment: Insulin Given MANAGEMENT OF PATIENT CARE PER NURSING PROTOCOL Performed By: #### L501.080 #### [facility] Point of Care [address] [place] [address] CONSULTATION Observed: 03/02/2018 Status: F Source: VAUGHN 5:27 PM [facility] REPOSITORY [facility] Medical Records Department [address] [place] [address] Consultation 03/02/18 1724 MR#: [id number] Acct: [id number] Name: MICHAEL GARCIA Rep #: [id number] : 1945 72 From: [place] Jenkins MD PCP: Mat Duffy MD Status: ADM IN Location: [place] [address] Problem List (1) ESRD (end stage renal [...] pain/fever Aspirin (Aspirin) 325 mg PO DAILY@0800 [facility] Last Admin: 03/02/18 15:47 Dose: 325 mg Atorvastatin Calcium (Lipitor) 40 mg PO QHS [facility] Last Admin: 03/01/18 21:28 Dose: Not Given Clonidine (Catapres) 0.1 mg PO TID [facility] Last Admin: 03/02/18 15:46 Dose: 0.1 mg Dextrose (D50w Syringe) 0 gm IV X1 PRN; Protocol PRN Reason: Hypoglycemia Ergocalciferol (Vitamin D) 50,000 unit PO QMONTH [facility] Furosemide (Lasix) 40 mg IV BID@1000,1800 [facility] Last Admin: 03/02/18 16:02 Dose: 40 mg Glucagon () 1 mg IM .X1 PRN PRN Reason: Hypoglycemia Heparin Sodium (Porcine) (Heparin Na) 5,000 unit SC Q8 [facility] Last Admin: 03/02/18 15:46 Dose: 5,000 units Insulin Aspart (Novolog Flexpen (Bkc)) 0 units SC Q6 RUBI PRN Reason: Protocol Last Admin: 03/02/18 11:43 Dose: Not Given Magnesium Hydroxide (Milk Of Magnesia) 30 ml PO DAILY PRN PRN PRN Reason: Constipation Metoprolol Succinate (Toprol Xl (Beta Stephania)) 25 mg PO DAILY [facility] Last Admin: 03/02/18 15:47 Dose: 25 mg Nystatin (Mycostatin Powder) 1 applic TOPICAL BID RUBI PRN Reason: Protocol Last Admin: 03/02/18 15:44 Dose: 1 applicatio Pantoprazole Sodium (Protonix) 40 mg PO DAILY [facility] Last Admin: 03/02/18 15:46 Dose: 40 mg Polysaccharide Iron Complex (Ferrex 150) 150 mg PO DAILY [facility] Last Admin: 03/02/18 15:47 Dose: 150 mg Sodium Chloride () 5 - 30 ml IV UD PRN PRN Reason: SALINE FLUSH Last Admin: 03/02/18 15:47 Dose: 10 ml - Past Medical History Past Medical History (Chronic Problems): Chronic Problems (Last Updated 01/22/18 @ 10:02 by Viviana Childers, VEHICLE REFINISHER-C) ESRD (end stage renal disease) on dialysis [...] History (Last Reviewed 01/01/18 @ 18:03 by HILARY PinaC) Mother Cancer Diabetes Kidney disease Father Heart [...] Updated 01/22/18 @ 10:02 by Viviana Childers, VEHICLE REFINISHER-C) Acute hypercapnic respiratory failure (Acute) Lethargy (Acute) Altered mental status, unspecified (Acute) ESRD AMS likely related to baclofen use in dialysis today see orders/ flowsheets mental status is significantly better as per staff asked her to hold baclofen for now completely discussed with at bedside 03/02/18 2568 <Electronically signed by [place] Jenkins MD> Date [place] Jenkins MD Cosigner Signature (if applicable): Date CC: Aydin Carroll D.O.; Domingo Jenkins M.D.; Mat Duffy MD Signed BEDSIDE GLUCOSE Collected: 03/02/2018 Status: F Source: CHRISTOPHER 4:47 PM [facility] REPOSITORY TYPE CODE TESTS RESULT OUT OF REFERENCE UNITS RANGE LAB L501.080 70-110 mg/dL High BEDSIDE GLU 169 Result Comment: MANAGEMENT OF PATIENT CARE PER NURSING PROTOCOL Performed By: #### L501.080 #### [facility] Point of Care [address] [place], [place] [address] HEPATITIS B SURFACE Collected: 03/02/2018 Status: F Source: CHRISTOPHER AG 11:45 AM [facility] REPOSITORY TYPE CODE TESTS RESULT OUT OF RANGE REFERENCE UNITS LAB L3100.0400 Negative Normal HB Negative SURF AG Result Comment: Performed at: [facility] [id number] Certified Master Safe Technician: Ayad Joy PhD, Phone: [phone] Performed By: #### L3100.0390 #### [facility] (refer to report for specific site) refer to report for address and phone number BEDSIDE GLUCOSE Collected: 03/02/2018 Status: F Source: CHRISTOPHER 11:37 AM [facility] REPOSITORY TYPE CODE TESTS RESULT OUT OF REFERENCE UNITS RANGE LAB L501.080 70-110 mg/dL High BEDSIDE GLU 121 Result Comment: MANAGEMENT OF PATIENT CARE PER NURSING PROTOCOL Performed By: #### L501.080 #### [facility] Point of Care [address] [place], [place] [address] BEDSIDE GLUCOSE Collected: 03/02/2018 Status: F Source: CHRISTOPHER 5:18 AM [facility] REPOSITORY TYPE CODE TESTS RESULT OUT OF REFERENCE UNITS RANGE LAB L501.080 70-110 mg/dL High BEDSIDE GLU 166 Result Comment: Insulin Given Dr Orders Followed MANAGEMENT OF PATIENT CARE PER NURSING PROTOCOL Performed By: #### L501.080 #### [facility] Point of Care [address] [place] [address] CBC W/DIFF, AUTOMATED Collected: 03/02/2018 Status: F Source: CHRISTOPHER 5:11 AM [facility] REPOSITORY TYPE CODE TESTS RESULT OUT OF [...] Lymph 0.71 Performed By: #### L100.0100 #### [facility] [address] [facility] [place], [place], [address] BASIC METABOLIC Collected: 03/02/2018 Status: F Source: CHRISTOPHER PROFILE (BMP) 5:11 AM [facility] REPOSITORY TYPE CODE TESTS RESULT OUT OF [...] Performed By: #### L500.2500, L501.2300, L501.5200 #### [facility] [address] [place], [place], [address] PHOSPHORUS Collected: 03/02/2018 Status: F Source: VAUGHN 5:11 AM [facility] REPOSITORY TYPE CODE TESTS RESULT OUT OF RANGE REFERENCE UNITS LAB L501.2300 2.5-4.9 mg/dL High PHOS 5.5 Performed By: #### L500.2500, L501.2300, L501.5200 #### [facility] [address] [place], [place], [address] MAGNESIUM Collected: 03/02/2018 Status: F Source: VAUGHN 5:11 AM [facility] REPOSITORY TYPE CODE TESTS RESULT OUT OF RANGE REFERENCE UNITS LAB L501.5200 1.6-2.6 mg/dL Normal MG 2.0 Performed By: #### L500.2500, L501.2300, L501.5200 #### [facility] [address] [place], [address] BLOOD GASES BY CPS Collected: 03/01/2018 Status: F Source: CHRISTOPHER 11:43 PM [facility] REPOSITORY TYPE CODE TESTS RESULT OUT OF [...] ISTAT 94 Performed By: #### L9000.0800 #### [facility] Point of Care [address] [place] [address] BEDSIDE GLUCOSE Collected: 03/01/2018 Status: F Source: CHRISTOPHER 11:06 PM [facility] REPOSITORY TYPE CODE TESTS RESULT OUT OF REFERENCE UNITS RANGE LAB L501.080 70-110 mg/dL High BEDSIDE GLU 136 Result Comment: Dr Guadarrama Followed MANAGEMENT OF PATIENT CARE PER NURSING PROTOCOL Performed By: #### L501.080 #### [facility] Point of Care [address] [place] [address] BLOOD GASES BY CPS Collected: 03/01/2018 Status: F Source: CHRISTOPHER 7:39 PM [facility] REPOSITORY TYPE CODE TESTS RESULT OUT OF [...] HOSP MD LAB L9001.1105 Normal Time Given 1934 LAB [...] ISTAT 95 Performed By: #### L9000.0800 #### [facility] Point of Care [address] [place] [address] HISTORY AND PHYSICAL Observed: 03/01/2018 Status: F Source: VAUGHN EXAM 5:22 PM [facility] REPOSITORY [facility] Medical Records Department [address] [place] [address] History and Physical 03/01/18 1449 MR#: [id number] Acct: [id number] Name: MICHAEL GARCIA Rep #: [id number] : 1945 72 From: Jen Rosales MD PCP: Mat Duffy MD Status: ADM IN Y Location: [place] [address] Problem List (1) Altered mental status, unspecified [...] Updated 01/22/18 @ 10:02 by Viviana Childers, VEHICLE REFINISHER-C) ESRD (end stage renal disease) on dialysis [...] Surgical History: cholecystectomy, rotator cuff repair, - BLASTING WORKER History: No pertinent BLASTING WORKER history Lives: Spouse/ Significant Other Smoking Status: [...] Updated 01/22/18 @ 10:02 by Viviana Childers VEHICLE REFINISHER-C) Acute hypercapnic respiratory failure (Acute) Lethargy (Acute) [...] prophylaxis: PPI This note was generated with Alorum dictation software. It may contain incorrect words, spelling, and punctuation that were not noted in checking the note before signing. Code Visit Inpatient E AND M: 11515 Init Hosp L3 03/01/18 1722 <Electronically signed by Jen Rosales MD> Date Jen Rosales MD Cosigner Signature: Date (if applicable) CC: Jen Rosales MD; Mat Duffy MD Signed EMERGENCY DEPARTMENT Observed: 03/01/2018 Status: F Source: VAUGHN SUMMARY 4:35 PM [facility] REPOSITORY [facility] Medical Records Department [address] [place] [address] Emergency Department Summary 03/01/18 0940 MR#: [id number] Acct: [id number] Name: MICHAEL GARCIA Rep #: [id number] : 1945 72 From: Severiano Nino MD PCP: Mat Duffy MD Status: ADM IN History of Present Illness Chief Complaint: Alt LOC Informant: Patient, Family, Equipment Operator Wage Hand Limited: Stupor Onset: Hours - 6-7 Context: [...] for ED Patient: Disposition: Acute Care Hospital [facility] Chief Complaint: Alt LOC Diagnosis: Acute hypercapnic respiratory failure, Lethargy Referrals: Mat Duffy MD [Primary Care Provider] - What to do if you have Problems For any increased pain, shortness of breath, bleeding, nausea or vomiting, chest pain, or any unexpected problems, contact your Primary Care Provider. Call [facility] ([phone]) or report to the closest Emergency Room. Call 911 if necessary. 03/01/18 1635 <Electronically signed by Severiano Nino MD> Date Severiano Nino MD Cosigner Signature (If Indicated): Date CC: Mat Duffy MD BEDSIDE GLUCOSE Collected: 03/01/2018 Status: F Source: VAUGHN 4:23 PM [facility] REPOSITORY TYPE CODE TESTS RESULT OUT OF REFERENCE UNITS RANGE LAB L501.080 70-110 mg/dL High BEDSIDE GLU 192 Result Comment: MANAGEMENT OF PATIENT CARE PER NURSING PROTOCOL Performed By: #### L501.080 #### [facility] [place], [place] [address] TROPONIN-I Collected: 03/01/2018 Status: F Source: VAUGHN 4:15 PM [facility] REPOSITORY Order Comment: 'TROP' Serial specimen #1, #2 or #3: 2 TYPE CODE TESTS RESULT OUT OF RANGE REFERENCE UNITS LAB L501.4010 <0.045 ng/mL Normal < 0.015 TROPONIN-I Result Comment: TROPONIN-I EXPECTED VALUES <0.045 Negative 0.045 - 0.590 Consistent with Cardiac Damage > OR = 0.600 Critical Value Not every elevated troponin is indicative of [place]. These values should be used with clinical judgement in examining the patient's clinical picture for diagnosis. To establish a diagnosis of [place] versus myocardial injury, there must be a demonstrated rise and/or fall in the troponin values, in addition to ischemic symptoms, EKG changes, new regional wall motion abnormality, and/or angiographical evidence. PLEASE NOTE: REFERENCE RANGES EDITED 18 Performed By: #### L501.4010 #### [facility] [address] [place], [address] MAGNESIUM Collected: 03/01/2018 Status: F Source: VAUGHN 4:15 PM [facility] REPOSITORY TYPE CODE TESTS RESULT OUT OF RANGE REFERENCE UNITS LAB L501.5200 1.6-2.6 mg/dL Normal MG 1.8 Performed By: #### L501.5200 #### [facility] [address] [place], [address] URINE DRUG SCREEN Collected: 03/01/2018 Status: F Source: VAUGHN (VISTA) 3:43 PM [facility] REPOSITORY TYPE CODE TESTS RESULT OUT OF [...] Normal NEGATIVE Performed By: #### L505.5000 #### [facility] [address] [place], [address] BNP,B-TYPE NATRIURETIC Collected: 03/01/2018 Status: F Source: CHRISTOPHER PEPTIDE 3:40 PM [facility] REPOSITORY Order Comment: Comments: add on to blood draw from ED TYPE CODE TESTS RESULT OUT OF RANGE REFERENCE UNITS LAB L503.6620 0-100 pg/mL High B-TYPE 475.1 JUAN PABLO PEP Performed By: #### L503.6620 #### [facility] [address] [place], [address] URINALYSIS, COMPLETE Collected: 03/01/2018 Status: F Source: CHRISTOPHER 12:00 PM [facility] REPOSITORY Order Comment: Order Date: 03/01/18 How [...] 0-5 SEEN Performed By: #### L400.0001 #### [facility] [address] [place], [address] BLOOD GASES BY CPS Collected: 03/01/2018 Status: F Source: VAUGHN 10:10 AM [facility] REPOSITORY TYPE CODE TESTS RESULT OUT OF RANGE REFERENCE UNITS LAB L9000.9990 Normal BLD GAS TYPE ART LAB L9001.1000 Normal SITE R Radial LAB L9001.1050 O2 Normal Delivery Dev Nasal Can LAB L9001.1055 /min Normal LPM 4.0 LAB L9001.1104 Normal Results To ED MD LAB L9001.1105 Normal Time Given 1008 LAB [...] ISTAT 93 Performed By: #### L9000.0800 #### [facility] Point of Care [address] [place] [address] CBC W/DIFF, AUTOMATED Collected: 03/01/2018 Status: F Source: VAUGHN 9:40 AM [facility] REPOSITORY TYPE CODE TESTS RESULT OUT OF [...] Lymph 0.88 Performed By: #### L100.0100 #### [facility] [address] [place], [address] CHEST 1 VIEW Observed: 03/01/2018 Status: F Source: CHRISTOPHER (PORTABLE) 9:40 AM [facility] REPOSITORY [facility] Imaging Services [address] [place] [address] Chest 1 View (Portable) MR#: [id number] Acct: [id number] Name: MICHAEL GARCIA Rep #: [id number] : 1945 F 72 From: Javad Jalloh MD PCP: Mat Duffy MD Status: PRE ER Study: Chest 1 View (Portable) Date of Exam: 03/01/18 Exam# [id number] Ordering Dr: Severiano Nino MD STUDY: X-RAY [...] in the right atrium. Electronically Signed: Javad Shubham, at 10:05 EDT Tel , Service support , RAD/Chest 1 View (Portable) CC: SEVERIANO NINO MD; Mat Duffy MD Orchid Worker: Signed BASIC METABOLIC Collected: 03/01/2018 Status: F Source: CHRISTOPHER PROFILE (BMP) 9:40 AM [facility] REPOSITORY TYPE CODE TESTS RESULT OUT OF [...] 9 Performed By: #### L500.2500, L501.4010 #### [facility] [address] [place], [address] TROPONIN-I Collected: 03/01/2018 Status: F Source: VAUGHN 9:40 AM [facility] REPOSITORY TYPE CODE TESTS RESULT OUT OF RANGE REFERENCE UNITS LAB L501.4010 <0.045 ng/mL Normal < 0.015 TROPONIN-I Result Comment: TROPONIN-I EXPECTED VALUES <0.045 Negative 0.045 - 0.590 Consistent with Cardiac Damage > OR = 0.600 Critical Value Not every elevated troponin is indicative of [place]. These values should be used with clinical judgement in examining the patient's clinical picture for diagnosis. To establish a diagnosis of [place] versus myocardial injury, there must be a demonstrated rise and/or fall in the troponin values, in addition to ischemic symptoms, EKG changes, new regional wall motion abnormality, and/or angiographical evidence. PLEASE NOTE: REFERENCE RANGES EDITED 18 Performed By: #### L500.2500, L501.4010 #### [facility] [address] [place], [address] BRAIN/HEAD WITHOUT Observed: 03/01/2018 Status: F Source: [place] CONTRAST 9:40 AM [facility] REPOSITORY [facility] Imaging Services [address] [facility] [place] [address] Brain/Head without Contrast MR#: [id number] Acct: [id number] Name: MICHAEL GARCIA Rep #: [id number] : 1945 F 72 From: Javad Jalloh MD PCP: Mat Duffy MD Status: REG ER Study: Brain/Head without Contrast Date of Exam: 03/01/18 Exam# [id number] Ordering Dr: Severiano Nino MD STUDY: CT [...] CC: SEVERIANO NINO MD; Mat Duffy MD Orchid Worker: Signed VENOUS DUPLEX UPPER Observed: 02/26/2018 Status: F Source: [place] EXTREMITY 5:52 PM [facility] REPOSITORY [facility] Cardiovascular Services [address] [place] [address] Saphenous Vein Mapping, Bilat 02/26/18 1329 MR#: [id number] Acct: [id number] Name: MICHAEL GARCIA Rep #: [id number] : 1945 72 From: Anoop Angeles MD [...] Angeles MD; Mat Duffy MD Date Dictated: 02/26/189 Date Transcribed: 02/26/181751 Orchid Worker: Signed CNPTOUTREACH Observed: 02/17/2018 Status: COMPLETED Source: [place] 12:00 AM [facility] REPOSITORY Patient Outreach (FAMPST) MICHAEL GARCIA ([id number]) 1945 F BLD Date Time Provider Department 02/17/18 MAT DUFFY FAMPST During your visit today, we recorded the following information about you: Allergies As of Date: 02/17/2018 (No Known Allergies) Date Reviewed: 02/11/2018 Reviewed by: Mya Willams LPN - Fully Assessed Visit Diagnosis:Medication management [Z79.899] Order(s):LIPID PANEL BASIC [SQLIPB] Order #: [id number] FUTURE Prescriptions as of 02/17/2018 Sig: FUROSEMIDE [...] 07/17/18 PROGRESS Observed: 02/11/2018 Status: COMPLETED Source: [place] 5:15 PM [facility] REPOSITORY HNO ID: [id number] Author: Mat Duffy Service: (none) Author Type: Physician Type: Progress Notes Filed: 02/12/2018 12:31 AM Note Text: This note was created using Emergent Viewsriter. Subjective Michael Garcia is a 72 year [...] Neuropathy Associated With Type 2 Diabetes Mellitus ([facility]) Primary 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 ([facility]) Ckd (Chronic Kidney Disease) Stage V Requiring Chronic Dialysis ([facility]) Hypoxemia Chronic Diastolic Chf (Congestive Heart Failure) ([facility]) Anemia in Stage 3 Chronic Kidney Disease [...] MD CNOV Observed: 02/11/2018 Status: COMPLETED Source: [place] 4:40 PM [facility] REPOSITORY Office Visit (INTMWS) MICHAEL GARCIA ([id number]) 1945 F BLD Date Time Provider Department [...] Type 2 Diabetes Mellitus With Renal Manifestations ([facility]) Essential Hypertension With Goal Blood Pressure Less Than 130/85 Hyperlipidemia Legally Blind Diabetic Peripheral Neuropathy Associated With Type 2 Diabetes Mellitus ([facility]) Primary 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 ([facility]) Ckd (Chronic Kidney Disease) Stage V Requiring Chronic Dialysis ([facility]) Hypoxemia Chronic Diastolic Chf (Congestive Heart Failure) ([facility]) Anemia in Stage 3 Chronic Kidney Disease [...] LPN - Fully Assessed Reason for Visit: [facility] follow-up [Other] Cmt: Discharged 01/23/2018 Reason For Visit History Recorded Primary Visit Diagnosis:Chronic diastolic CHF (congestive heart failure) ([facility]) [I50.32] Other Visit Diagnoses:Hypoxemia [R09.02] CKD (chronic kidney disease) stage V requiring chronic dialysis ([facility]) [N18.6, Z99.2] Paroxysmal atrial fibrillation ([facility]) [I48.0] Diabetic peripheral neuropathy associated with type [...] LEAD ELECTROCARDIOGRAM Observed: 01/25/2018 Status: F Source: [place]N 8:59 PM [facility] REPOSITORY [facility] Cardiovascular [place] [address] 12 Lead EKG 01/22/18 0532 MR#: [id number] Acct: [id number] Name: MICHAEL GARCIA Rep #: [id number] : 1945 72 From: Reinier Lang MD Attending Dr: Fahad Sesay Status: DIS IN Ordering Dr: Fahad Sesay MD Date: 01/22/18 Location: [facility] Sex: F C Admitted: 01/19/18 Test Reason [...] wave progression Confirmed by REINIER LANG MD ([id number]), technical writer and editor HONORIO SHEFFIELD ([id number]) on 01/23/2018 1:25:54 PM Referred By: MATEO Confirmed By:REINIER LANG MD 01/23/18 1325 Date Reinier Lang MD CC: Fahad Sesay; Mat Duffy MD Signed 12 LEAD ELECTROCARDIOGRAM Observed: 01/25/2018 Status: F Source: [place] 8:57 PM [facility] REPOSITORY [facility] Cardiovascular Services [address] [place] [address] 12 Lead EKG 01/19/18817 MR#: [id number] Acct: [id number] Name: MICHAEL GARCIA Travis Rep #: [id number] : 1945 72 From: Ortiz Markham MD Attending Dr: Fahad Sesay Status: DIS IN Ordering Dr: Rashawn Sotelo MD Date: 01/19/18 Location: [facility] Sex: F C Admitted: 01/19/18 Test Reason : SOB Blood Pressure : / mmHG Vent. Rate : 078 BPM Atrial Rate : 078 BPM P-R Int : 178 ms QRS Dur : 102 ms QT Int : 420 ms P-R-T Axes : 047 -32 055 degrees QTc Int : 478 ms Normal sinus rhythm Indeterminate axis Abnormal ECG Confirmed by ORTIZ MARKHAM ([id number]), technical writer and editor HONORIO SHEFFIELD ([id number]) on 01/22/2018 2:45:40 PM Referred By: LOIS Confirmed By:ORTIZ MARKHAM 01/22/18 1445 Date Ortiz Markham MD CC: Fahad Sesay; Rashawn Sotelo MD; Mat Duffy MD Signed DISCHARGE SUMMARY Observed: 01/23/2018 Status: F Source: [place]STOP[place] 11:58 AM [facility] REPOSITORY [facility] Medical Records Department [address] [place] [address] Discharge Summary 01/23/18 1150 MR#: [id number] Acct: [id number] Name: MICHAEL GARCIA Rep #: [id number] : 1945 72 From: Fahad Sesay MD PCP: Mat Duffy MD Status: DIS IN Y Location: [place] [address] Discharge Date and Diagnosis Date of Admission: 01/19/18 Date of Discharge: 01/22/18 - Primary Discharge Diagnosis #1 acute pulmonary edema. #2 acute on chronic hypoxic and hypercapnic respiratory failure. #3 malfunctioning left internal jugular tunneled dialysis catheter, placement of right internal jugular dialysis catheter. - Secondary Discharge Diagnosis Chronic Problems (Last Updated 01/22/18 @ 10:02 by Viviana Childers, VEHICLE REFINISHER-C) ESRD (end stage renal disease) on dialysis [...] Brett Arcos MD at 15:06 EDT Tel [phone], Service support , Dr. Jones, nephrology. Dr. [...] baseline at home. During the dialysis, that geotechnical laboratory technician noticed that the left IJ tunneled [...] applicable Code Visit Inpatient E AND M: 21868 Disch Hosp 01/23/18 8913 <Electronically signed by Fahad Sesay MD> Date Fahad Sesay MD Cosigner Signature (if applicable): Date CC: Fahad Sesay; Domingo Jenkins M.D.; Mat Duffy MD Signed BEDSIDE GLUCOSE Collected: 01/22/2018 Status: F Source: [place] 4:56 PM [facility] REPOSITORY TYPE CODE TESTS RESULT OUT OF RANGE REFERENCE UNITS LAB L501.080 70-110 mg/dL Normal BEDSIDE GLU 79 Result Comment: MANAGEMENT OF PATIENT CARE PER NURSING PROTOCOL Performed By: #### L501.080 #### [facility] Point of Care [address] [place] [address] DISCHARGE INSTRUCTION Observed: 01/22/2018 Status: F Source: [place] 3:11 PM [facility] REPOSITORY [facility] Medical Records Department [address] [place] [address] Instructions for Home/Discharge Instructions 01/22/18 1508 MR#: [id number] Acct: [id number] Name: MICHAEL GARCIA Rep #: [id number] : 1945 72 From: Fahad Sesay MD PCP: Mat Duffy MD Status: ADM IN - Discharge Diagnoses Current Active Problems: Current Active and Chronic Problems (Last Updated 01/22/18 @ 10:02 by Viviana Childers, VEHICLE REFINISHER-C) Acute on chronic respiratory failure with hypoxia [...] Up With: Juan Daniel Raymundo MD 01/22/18 0918 <Electronically signed by Fahad Sesay MD> Date Fahad Sesay MD CC: Rocael Valencia MD; Domingo Jenkins M.D.; Anoop Angeles MD; Mat Duffy MD HIV - [facility] Collected: 01/22/2018 Status: F Source: [place] 2:23 PM [facility] REPOSITORY TYPE CODE TESTS RESULT OUT OF RANGE REFERENCE UNITS LAB L3890.6005 Nonreactive Normal HIV - H Non-Reactive Performed By: #### L3890.6005 #### [facility] [address] [place], [address] HEPATITIS B SURFACE Collected: 01/22/2018 Status: F Source: [place] AG 2:23 PM [facility] REPOSITORY TYPE CODE TESTS RESULT OUT OF RANGE REFERENCE UNITS LAB L3100.0400 Negative Normal HB Negative SURF AG Performed By: #### L3100.0390, L3100.0460, L3100.0528, L3100.0625 #### [facility] (refer to report for specific site) refer to report for address and phone number HEPATITIS B CORE AB Collected: 01/22/2018 Status: F Source: [place] TOTAL 2:23 PM [facility] REPOSITORY TYPE CODE TESTS RESULT OUT OF RANGE REFERENCE UNITS LAB L3100.0460 Negative Normal HEP B Negative CORE,TOT Result Comment: Performed at: - [facility] [id number] Certified Master Safe Technician: Ayad Joy PhD, Phone: [phone] Performed By: #### L3100.0390, L3100.0460, L3100.0528, L3100.0625 #### [facility] (refer to report for specific site) refer to report for address and phone number HEP B SURFACE Collected: 01/22/2018 Status: F Source: [place] ANTIBODIES 2:23 PM [facility] REPOSITORY TYPE CODE TESTS RESULT OUT OF [...] C ANTIBODIES Collected: 01/22/2018 Status: F Source: [place] 2:23 PM [facility] REPOSITORY TYPE CODE TESTS RESULT OUT OF RANGE REFERENCE UNITS LAB L3100.0650 0.0-0.9 s/co ratio Normal HEP C AB 0.1 Result Comment: Negative: < 0.8 Indeterminate: 0.8 - 0.9 Positive: > 0.9 The CDC recommends that a positive HCV antibody result be followed up with a HCV Nucleic Acid Amplification test (258483). Performed By: #### L3100.0390, L3100.0460, L3100.0528, L3100.0625 #### [facility] (refer to report for specific site) refer to report for address and phone number OPERATIVE REPORT Observed: 01/22/2018 Status: F Source: [place] 1:33 PM [facility] REPOSITORY [facility] Medical Records Department [address] [place] [address] Operative Report 01/22/18 1327 MR#: [id number] Acct: [id number] Name: MICHAEL GARCIA Rep #: [id number] : 1945 72 From: Anoop Angeles MD PCP: Mat Duffy MD Status: ADM IN Location: [place] [address] Problem List (1) Problem with dialysis access Status: Acute Qualifiers: Encounter type: initial encounter Qualified Code(s): T82.898A - Other specified complication of vascular prosthetic devices, implants and grafts, initial encounter Report of Operation Date of Procedure: 01/22/18 Pre-Operative Diagnosis: Malfunction left internal jugular tunneled dialysis catheters Post-Operative Diagnosis: Same Surgery/Procedure Performed:: Right internal jugular 19 cm pre-curved palindrome catheter placement. Reference number [id number] lot #[id number]. Removal left internal tunneled dialysis catheters Description [...] Anesthesia:: Local MAC Anesthesiologist: Carmen Montemayor 01/22/18 1333 <Electronically signed by Anoop Angeles MD> Date Anoop Angeles MD CC: Rocael Valencia MD; Domingo Jenkins M.D.; Anoop Angeles MD; Mat Duffy MD Signed CHEST 1 VIEW Observed: 01/22/2018 Status: F Source: CH[place]STOPHER (PORTABLE) 12:46 PM [facility] REPOSITORY [facility] Imaging Services [address] [place] [address] Chest 1 View (Portable) MR#: [id number] Acct: [id number] Name: MICHAEL GARCIA Rep #: [id number] : 1945 F 72 From: Brett Arcos MD PCP: Mat Duffy MD Status: ADM IN Study: Chest 1 View (Portable) Date of Exam: 01/22/18 Exam# [id number] Ordering Dr: Anoop Angeles MD STUDY: X-RAY [...] Brett Arcos MD at 15:06 EDT Tel [phone], Service support , CC: Anoop Angeles MD; Mat Duffy MD Orchid Worker: Signed BEDSIDE GLUCOSE Collected: 01/22/2018 Status: F Source: [place] 11:24 AM [facility] REPOSITORY TYPE CODE TESTS RESULT OUT OF REFERENCE UNITS RANGE LAB L501.080 70-110 mg/dL High BEDSIDE GLU 269 Result Comment: MANAGEMENT OF PATIENT CARE PER NURSING PROTOCOL Performed By: #### L501.080 #### [facility] Point of Care [address] [facility] [place] [address] BEDSIDE GLUCOSE Collected: 01/22/2018 Status: F Source: [place]STOPHER 6:51 AM [facility] REPOSITORY TYPE CODE TESTS RESULT OUT OF REFERENCE UNITS RANGE LAB L501.080 70-110 mg/dL High BEDSIDE GLU 195 Result Comment: MANAGEMENT OF PATIENT CARE PER NURSING PROTOCOL Performed By: #### L501.080 #### [facility] Point of Care [address] [place] [address] CONSULTATION Observed: 01/22/2018 Status: F Source: [place] 5:55 AM [facility] REPOSITORY [facility] Medical Records Department [address] [place] [address] Consultation 01/21/18 1832 MR#: [id number] Acct: [id number] Name: MICHAEL GARCIA Rep #: [id number] : 1945 72 From: Anoop Angeles MD PCP: Mat Duffy MD Status: ADM IN Location: [place] [address] Problem List (1) Problem with dialysis access Status: Acute Qualifiers: Encounter type: initial encounter Qualified Code(s): T82.898A - Other specified complication of vascular prosthetic devices, implants and grafts, initial encounter Reason for Consult Date of Consultation: 01/21/18 History of Present Illness: The patient is a 72 year old F [who was admitted to the [facility] on January 19, 2018 with shortness of breath. On December 08, 2017 after being consulted I placed a left internal jugular 23 cm pre-curved tunneled palindrome catheter for hemodialysis. At that time the patient had previously had a right internal jugular temporary catheters placed in the intensive care unit. According to the patient she was referred by Dr. Romeo to [facility] changed over to new catheters. Patient [...] 01/22/2018 Status: F Source: [place]STOP[place] 5:50 AM [facility] REPOSITORY TYPE CODE TESTS RESULT OUT OF [...] MACROCYTE 2+ Performed By: #### L100.0100 #### [facility] [address] [place], [address] PROTHROMBIN TIME W/INR Collected: 01/22/2018 Status: F Source: [place] 5:50 AM [facility] REPOSITORY TYPE CODE TESTS RESULT OUT OF RANGE REFERENCE UNITS LAB L300.4150 11.7-14.9 SECONDS Normal PROTIME 14.5 LAB L300.4200 Normal INR 1.1 Performed By: #### L300.3900, L300.4310 #### [facility] [address] [place], [address] PARTIAL THROMBOPLAST Collected: 01/22/2018 Status: F Source: [place] TIME 5:50 AM [facility] REPOSITORY TYPE CODE TESTS RESULT OUT OF REFERENCE UNITS RANGE LAB L300.4310 24.1-36.2 Seconds High PTT 41.6 Performed By: #### L300.3900, L300.4310 #### [facility] [address] [place], [address] BASIC METABOLIC Collected: 01/22/2018 Status: F Source: [place] PROFILE (BMP) 5:50 AM [facility] REPOSITORY TYPE CODE TESTS RESULT OUT OF [...] GAP 5 Performed By: #### L500.2500 #### [facility] [address] [facility] [place], [address] HEMOGLOBIN A1C Collected: 01/22/2018 Status: F Source: [place] 5:50 AM [facility] REPOSITORY TYPE CODE TESTS RESULT OUT OF RANGE REFERENCE UNITS LAB L501.9985 4.2-6.3 % High HGB A1C 6.4 Performed By: #### L501.9985 #### [facility] [address] [facility] [place], [address] BEDSIDE GLUCOSE Collected: 01/21/2018 Status: F Source: [place] 10:10 PM [facility] REPOSITORY TYPE CODE TESTS RESULT OUT OF REFERENCE UNITS RANGE LAB L501.080 70-110 mg/dL High BEDSIDE GLU 356 Result Comment: MANAGEMENT OF PATIENT CARE PER NURSING PROTOCOL Performed By: #### L501.080 #### [facility] Point of Care [address] [place] [address] BEDSIDE GLUCOSE Collected: 01/21/2018 Status: F Source: [place]HER 5:32 PM [facility] REPOSITORY TYPE CODE TESTS RESULT OUT OF REFERENCE UNITS RANGE LAB L501.080 70-110 mg/dL High BEDSIDE GLU 148 Result Comment: MANAGEMENT OF PATIENT CARE PER NURSING PROTOCOL Performed By: #### L501.080 #### [facility] Point of Care [address] [place] [address] BEDSIDE GLUCOSE Collected: 01/21/2018 Status: F Source: [place]HER 12:03 PM [facility] REPOSITORY TYPE CODE TESTS RESULT OUT OF REFERENCE UNITS RANGE LAB L501.080 70-110 mg/dL High BEDSIDE GLU 163 Result Comment: MANAGEMENT OF PATIENT CARE PER NURSING PROTOCOL Performed By: #### L501.080 #### [facility] Point of Care [address] [place] [address] DISCHARGE INSTRUCTION Observed: 01/21/2018 Status: F Source: CH[place]STOPHER 10:12 AM [facility] Medical Records Department [address] [facility] [place] [address] Instructions for Home/Discharge Instructions 01/21/18 1011 MR#: [id number] Acct: [id number] Name: MICHAEL GARCIA Travis Rep #: [id number] : 1945 72 From: Fahad Sesay MD [...] 01/21/2018 Status: F Source: [place]STOPHER 6:56 AM [facility] REPOSITORY TYPE CODE TESTS RESULT OUT OF REFERENCE UNITS RANGE LAB L501.080 70-110 mg/dL High BEDSIDE GLU 172 Result Comment: MANAGEMENT OF PATIENT CARE PER NURSING PROTOCOL Performed By: #### L501.080 #### [facility] Point of Care [address] [place] [address] CBC W/DIFF, AUTOMATED Collected: 01/21/2018 Status: F Source: CHRISTOPHER 6:10 AM [facility] REPOSITORY TYPE CODE TESTS RESULT OUT OF [...] Lymph 0.97 Performed By: #### L100.0100 #### [facility] [address] [place], [place], [address] BASIC METABOLIC Collected: 01/21/2018 Status: F Source: [place]STOPHER PROFILE (BMP) 6:10 AM [facility] REPOSITORY TYPE CODE TESTS RESULT OUT OF [...] GAP 9 Performed By: #### L500.2500 #### [facility] [facility]. [facility] [address] BEDSIDE GLUCOSE Collected: 01/20/2018 Status: F Source: [place]N 10:43 PM [facility] REPOSITORY TYPE CODE TESTS RESULT OUT OF REFERENCE UNITS RANGE LAB L501.080 70-110 mg/dL High BEDSIDE GLU 421 Result Comment: MANAGEMENT OF PATIENT CARE PER NURSING PROTOCOL Performed By: #### L501.080 #### [facility] Point of Care [address] [facility] [place] [address] BEDSIDE GLUCOSE Collected: 01/20/2018 Status: F Source: VAUGHN 4:06 PM [facility] REPOSITORY TYPE CODE TESTS RESULT OUT OF REFERENCE UNITS RANGE LAB L501.080 70-110 mg/dL High BEDSIDE GLU 400 Result Comment: MANAGEMENT OF PATIENT CARE PER NURSING PROTOCOL Performed By: #### L501.080 #### [facility] Point of Care [address] [facility] [place] [address] BEDSIDE GLUCOSE Collected: 01/20/2018 Status: F Source: [place]N 11:21 AM [facility] REPOSITORY TYPE CODE TESTS RESULT OUT OF REFERENCE UNITS RANGE LAB L501.080 70-110 mg/dL High alert BEDSIDE GLU 478 Result Comment: Insulin Given MANAGEMENT OF PATIENT CARE PER NURSING PROTOCOL Performed By: #### L501.080 #### [facility] Point of Care [address] [place] [address] CONSULTATION Observed: 01/20/2018 Status: F Source: VAUGHN 9:54 AM [facility] REPOSITORY [facility] Medical Records Department [address] [place] [address] Consultation 01/20/18 0943 MR#: [id number] Acct: [id number] Name: MICHAEL GARCIA Rep #: [id number] : 1945 72 From: Nidia Jones MD [...] Patient was sent from HD unit to [facility] for SOB and tachypnea. chest xray [...] Amiodarone HCl (Cordarone) 200 mg PO DAILY [facility] Last Admin: 01/20/18 08:28 Dose: 200 mg Aspirin (Ecotrin) 325 mg PO DAILY@0800 [facility] Last Admin: 01/20/18 08:30 Dose: 325 mg Atorvastatin Calcium (Lipitor) 40 mg PO QHS [facility] Last Admin: 01/20/18 02:28 Dose: 40 mg Chlorhexidine Gluconate () 1 each TOPICAL DAILY [facility] Last Admin: 01/20/18 07:10 Dose: 1 each Clonidine (Catapres) 0.1 mg PO TID [facility] Last Admin: 01/20/18 07:10 Dose: 0.1 mg Ergocalciferol (Vitamin D) 50,000 unit PO QMONTH [facility] Furosemide (Lasix) 60 mg PO BID@1000,1800 [facility] Last Admin: 01/20/18 08:22 Dose: 60 mg Gabapentin (Neurontin) 300 mg PO QHS [facility] Last Admin: 01/20/18 02:24 Dose: 300 mg Heparin Sodium (Porcine) (Heparin Na) 5,000 unit SC BID [facility] Last Admin: 01/20/18 08:23 Dose: 5,000 u Sodium Chloride () 250 mls @ 15 mls/hr IV .[id number] PRN PRN Reason: SALINE FLUSH Sodium Chloride () 250 mls @ 15 mls/hr IV .[id number] PRN PRN Reason: SALINE FLUSH Insulin Aspart (Novolog Flexpen (Bkc)) 0 units SC ACHS [facility] PRN Reason: Protocol Last Admin: 01/20/18 08:20 Dose: 4 u Insulin Detemir (Levemir (Bkc)) 39 units SC BID [facility] Last Admin: 01/20/18 08:29 Dose: 39 units Magnesium Hydroxide (Milk Of Magnesia) 30 ml PO DAILY PRN PRN PRN Reason: Constipation Metoprolol Succinate (Toprol Xl (Beta Stephania)) 25 mg PO DAILY [facility] Last Admin: 01/20/18 08:36 Dose: 25 mg Pantoprazole Sodium (Protonix) 40 mg PO DAILY [facility] Last Admin: 01/20/18 08:28 Dose: 40 mg Polysaccharide Iron Complex (Ferrex 150) [facility] Sodium Chloride () 5 - 30 ml IV UD PRN PRN Reason: SALINE FLUSH - Past Medical History Past Medical History (Chronic Problems): Chronic Problems (Last Reviewed 01/01/18 @ 18:03 by Josi Hickman, VEHICLE REFINISHER-C) Rheumatic mitral insufficiency (Chronic) Valvular heart disease [...] Problems (Last Reviewed 01/01/18 @ 18:03 by MIKEY Pina) ESRD (end stage renal disease) on dialysis [...] Will continue to follow Nidia Jones MD [phone] 01/20/18 0954 <Electronically signed by Nidia Jones MD> Date Nidia Jones MD Cosigner Signature (if applicable): Date CC: Rocael Valencia MD; Domingo Jenkins M.D.; Mat Duffy MD Signed CONSULTATION Observed: 01/20/2018 Status: F Source: VAUGHN 6:40 AM [facility] REPOSITORY [facility] Medical Records Department [address] [place] [address] Consultation 01/19/18 1554 MR#: [id number] Acct: [id number] Name: MICHAEL GARCIA Rep #: [id number] : 1945 72 From: Rocael Valencia MD [...] from the outpatient practice, who presented to [facility] on 01/19/2018 secondary to progressive shortness of [...] F Source: CHRISTOPHER PROFILE (BMP) 6:20 AM [facility] REPOSITORY Order Comment: REDRAW. PREVIOUS SPECIMEN REJECTED [...] GAP 6 Performed By: #### L500.2500 #### [facility] [address] [place], [address] HEP B SURFACE Collected: 01/20/2018 Status: F Source: [place]AU[place]N ANTIBODIES 6:20 AM [facility] REPOSITORY Order Comment: REDRAW. PREVIOUS SPECIMEN REJECTED DUE TO HEMOLYZED >4+. 01/20/18 0609 Natalia Barragan. TYPE CODE TESTS RESULT OUT OF RANGE REFERENCE UNITS LAB L3100.0528 . Normal Hep B Non Reactive Suzanne AB Result Comment: Non Reactive: Inconsistent with immunity, less than 10 mIU/mL Reactive: Consistent with immunity, greater than 9.9 mIU/mL Performed at: - [facility] [address] [id number] Certified Master Safe Technician: Ayad Joy PhD, Phone: [phone] Performed By: #### L3100.0528 #### [facility] (refer to report for specific site) refer to report for address and phone number CBC W/DIFF, AUTOMATED Collected: 01/20/2018 Status: F Source: CHRISTOPHER 5:10 AM [facility] REPOSITORY TYPE CODE TESTS RESULT OUT OF [...] LYMPHOPENIA NOTED Performed By: #### L100.0100 #### [facility] [address] [place], [address] BEDSIDE GLUCOSE Collected: 01/20/2018 Status: F Source: VAUGHN 2:21 AM [facility] REPOSITORY TYPE CODE TESTS RESULT OUT OF REFERENCE UNITS RANGE LAB L501.080 70-110 mg/dL High BEDSIDE GLU 359 Result Comment: MANAGEMENT OF PATIENT CARE PER NURSING PROTOCOL Performed By: #### L501.080 #### [facility] Point of Care [address] [place] [address] M R STAPH AUREUS Collected: 01/19/2018 Status: F Source: CHRISTOPHER DNA BY PCR 6:15 PM [facility] REPOSITORY TYPE CODE TESTS RESULT OUT OF RANGE REFERENCE UNITS LAB L8200.1100 Negative Normal MRSA Negative RESULT Performed By: #### L8200.1000 #### [facility] [address] [place], [address] BLOOD GASES BY CPS Collected: 01/19/2018 Status: F Source: CHRISTOPHER 5:09 PM [facility] REPOSITORY TYPE CODE TESTS RESULT OUT OF [...] 11 LAB L9001.1104 Normal Results To ICU MD LAB L9001.1105 Normal Time Given 1708 LAB [...] ISTAT 89 Performed By: #### L9000.0800 #### [facility] Point of Care [address] [place] [address] EMERGENCY DEPARTMENT Observed: 01/19/2018 Status: F Source: CHRISTOPHER SUMMARY 5:00 PM [facility] REPOSITORY [facility] Medical Records Department [address] [place] [address] Emergency Department Summary 01/19/18 0829 MR#: [id number] Acct: [id number] Name: MICHAEL GARCIA Rep #: [id number] : 1945 72 From: Rashawn Sotelo MD [...] insulin-dependent diabetes. This note was generated with [employer]oursor[employer] Bankation software. It may contain incorrect words, spelling, [...] your Primary Care Provider. Call [facility] ([phone]) or report to the closest Emergency Room. Call 911 if necessary. 01/19/18 1700 <Electronically signed by Rashawn Sotelo MD> Date Rashawn Sotelo MD Cosigner Signature (If Indicated): Date CC: Mat Duffy MD BEDSIDE GLUCOSE Collected: 01/19/2018 Status: F Source: VAUGHN 4:30 PM [facility] REPOSITORY TYPE CODE TESTS RESULT OUT OF REFERENCE UNITS RANGE LAB L501.080 70-110 mg/dL High BEDSIDE GLU 238 Result Comment: Dr Guadarrama Followed MANAGEMENT OF PATIENT CARE PER NURSING PROTOCOL Performed By: #### L501.080 #### [facility] Point of Care [address] [place] [address] HISTORY AND PHYSICAL Observed: 01/19/2018 Status: F Source: VAUGHN EXAM 4:01 PM [facility] REPOSITORY [facility] Medical Records Department [address] [place] [address] History and Physical 01/19/18 1441 MR#: [id number] Acct: [id number] Name: GARCIAMICHAEL Travis Rep #: [id number] : 1945 72 From: Irene Wilson MD [...] she was sent to the emergency room. Internal Communications Intern has been consulted for urgent hemodialysis today. [...] SCDs. Code Visit Inpatient E AND M: 76393 Init Hosp L3 01/19/18 1601 <Electronically signed by Irene Wilson MD> Date Irene Wilson MD Cosigner Signature: Date (if applicable) CC: Irene Wilson MD; Mat Duffy MD Signed Observed: 01/19/2018 Status: F Source: CHRISTOPHER INFLUENZA A+B (RAPID 3:17 PM [facility]) REPOSITORY FLU A/B Rapid Negative test results should be confirmed by culture. Order Rapid Viral Culture for Influenzae A+B ([id number]) if clinically indicated. Influenza Ag, Direct Presumptive NEGATIVE for Influenza A/B Antigen (See Note) Performed By: #### M101.0101 #### [facility] [address] [place], [place], [id number] BLOOD GASES BY CPS Collected: 01/19/2018 Status: F Source: CHRISTOPHER 12:56 PM [facility] REPOSITORY TYPE CODE TESTS RESULT OUT OF [...] ISTAT 86 Performed By: #### L9000.0800 #### [facility] Point of Care [address] [place], [place] [address] CBC W/DIFF, AUTOMATED Collected: 01/19/2018 Status: F Source: CHRISTOPHER 8:45 AM [facility] REPOSITORY TYPE CODE TESTS RESULT OUT OF [...] LYMPHOPENIA NOTED. Performed By: #### L100.0100 #### [facility] [address] [place], [address] BASIC METABOLIC Collected: 01/19/2018 Status: F Source: CHRISTOPHER PROFILE ([facility]) 8:45 AM [facility] REPOSITORY Order Comment: 'TROP' Serial specimen #1, [...] 6 Performed By: #### L500.2500, L501.4010 #### [facility] [address] [place], [place], [address] TROPONIN-I Collected: 01/19/2018 Status: F Source: VAUGHN 8:45 AM [facility] REPOSITORY Order Comment: 'TROP' Serial specimen #1, #2, #3, or #4: 1 TYPE CODE TESTS RESULT OUT OF RANGE REFERENCE UNITS LAB L501.4010 <0.06 ng/mL Normal < 0.02 TROPONIN-I Result Comment: TROPONIN-I EXPECTED VALUES <0.05 NEGATIVE 0.06 - 0.59 AT RISK OF [place] > OR = 0.60 SUGGEST [place] Performed By: #### L500.2500, L501.4010 #### [facility] [address] [place], [address] CHEST 1 VIEW Observed: 01/19/2018 Status: F Source: VAUGHN (PORTABLE) 8:26 AM [facility] REPOSITORY [facility] Imaging Services [address] [place] [address] Chest 1 View (Portable) MR#: [id number] Acct: [id number] Name: MICHAEL GARCIA Rep #: [id number] : 1945 F 72 From: Regulo Tang MD PCP: Mat Duffy MD Status: REG ER Study: Chest 1 View (Portable) Date of Exam: 01/19/18 Exam# [id number] Ordering Dr: Rashawn Sotelo MD STUDY: X-RAY [...] CC: Rashawn Sotelo MD; Mat Duffy MD Orchid Worker: Signed TYPE AND SCREEN Collected: 01/07/2018 Status: F Source: VAUGHN 12:55 PM [facility] REPOSITORY Order Comment: PRETRANSFUSION HGB = 6.4 HCT = 19.2 PERFORMED AT [facility] CMV NEG?* N Give When? When Ready Irradiated? N Leukodepleted? Y Reason for Type AND Screen/Red Cells: ANEMIA TYPE CODE TESTS RESULT OUT OF RANGE REFERENCE UNITS LAB B10.0800 O Normal BLOOD TYPE GEL POSITIVE LAB B100.4000 Normal Antibody NEGATIVE Screen Performed By: #### B101.7450 #### [facility] [address] [place], [address] Collected: 01/07/2018 Status: F Source: VAUGHN 12:55 PM [facility] REPOSITORY TYPE CODE TESTS RESULT OUT OF REFERENCE UNITS RANGE LAB U100.0000 [id number] TRANSFUSED PRODUCT: T AND S with Crossmatch, Red Cells COUNT: 2 Performed By: #### U100.0000 #### [facility] - refer to report for specific site PROGRESS Observed: 01/05/2018 Status: COMPLETED Source: [place] 2:32 PM [facility] REPOSITORY HNO ID: [id number] Author: Simin Villarreal Service: (none) Author Type: [...] with medications. Will seek help of and [facility] to find meds for [employer]. plan. Concerns: Unable to afford insulin ordered. Hand Bander plan for next outreach: Will follow up as needed Signature Simin Villarreal second baller Csr Internal Medicine [facility] January 05, 2018 CNPTOUTREAELANA Observed: 01/05/2018 Status: COMPLETED Source: [place] 12:00 AM [facility] REPOSITORY Patient Outreach (INTMWS) MICHAEL GARCIA ([id number]) 1945 F BLD Date Time Provider Department 01/05/18 SIMIN AQUINO During your visit today, we recorded the following information about you: Simin Duarte RN 01/23/2018 3:17 PM Signed PRIMARY CARE COORDINATION FOLLOW-UP NOTE Provider Action/FYI Need help with Lantus and Novolog ordered. They have reached [facility] already. Patient identified by name and date of . YES Spoke to patient and spouse Summary: stating that insulin will cost $1000 since they are in [facility] already. Asking for help with medications. Will seek help of and [facility] to find meds for [employer]. plan. Concerns: Unable to afford insulin ordered. Hand Bander plan for next outreach: Will follow up as needed Signature Simin Villarreal RN Ambulatory Csr Internal Medicine [facility] January 05, 2018 Allergies As of Date: 01/05/2018 (No Known Allergies) Date Reviewed: 12/23/2017 Reviewed by: Cindy Limon LPN - Fully Assessed Reason for Visit: Csr Chronic Care [7446] Prescriptions as of 01/05/2018 Sig: HYDRALAZINE 100 [...] VISIT REPORT Observed: 01/01/2018 Status: F Source: VAUGHN 6:15 PM [facility] REPOSITORY [facility] [address] [place] [address] OFFICE VISIT Date of Service: 01/01/18 MR#: [id number] Acct: [id number] Name: MICHAEL GARCIA Rep #: [id number] : 1945 Provider: Josi Hickman Age/Sex: 72/F [facility] Status: Signed Assessment AND Plan 1. INES [...] Orders: Plan Detail Follow Up 3 Months ([facility]) [facility] hospital f/u: Chief Complaint: Shortness of breath HPI Comments Details: This is a 72 year old very pleasant f, currently under the care of Mat Duffy, here to follow up after a recent hospitalization at [facility], from November 27, 2017 through December 09, [...] DAILY@0800 #30 tab 12/09/17 [Rx Confirmed 01/01/18] [facility] Medical History Rheumatic mitral insufficiency (Chronic) HTN [...] MD PROGRESS Observed: 12/23/2017 Status: COMPLETED Source: [place] 11:37 AM [facility] REPOSITORY HNO ID: [id number] Author: Reny (Reflexologist) Older, JAVIER.JULIO C Service: (none) Author Type: Nurse Practitioner Type: Progress Notes Filed: 12/23/2017 1:08 PM Note Text: CC: Patient presents with: Hospital F/U: was at [facility] for renal failure HPI Michael Garcia is a 72 year old female who presents today for hospital follow-up/TCM encounter. Reason for visit: Admitted from materials technician office for elevated PANCA, concern JORGE on CKD due to vasculitis Which facility: [facility] Date of visit: 12/12/17 to 12/17/17 Diagnosis: JORGE on CKD, requiring dialysis 3 times a week on //; etiology unknown Testing done: kidney biopsy-negative for vasculitis, echocardiogram-EF 65%, Chest r-dhk-bswbkfflt venous congestion, CBC-anemia Treatment given: Dialysis, 2 [...] Has appointment in a couple weeks with materials technician. Going to dialysis MW. States she is [...] 2013 benign - COLONOSCOP W/ OR W/O [facility] SPEC 10/27/2017 Colonoscopy w/bx [facility] - EGD W/O OR W/BRUSH/WASH 10/27/2017 EGD w/bx [facility] - LAPAROSCOPIC CHOLEYCYSTECTOMY Cholecystectomy, lap - REMOVAL [...] dialysis and labs as ordered Follow-up with materials technician Follow-up with PCP sooner than appointment scheduled in February 2. Anemia in chronic kidney disease, unspecified CKD stage - ICD9: 285.21, ICD10: N18.9, D63.1 Continue to monitor CBC. Will be managed by nephrology 3. INES on CPAP - ICD9: 327.23, V46.8, ICD10: G47.33, Z99.89 Unclear why settings were changed. promotions manager will contact Bantr and patient's winch driver concerning patient's symptoms 4. Generalized edema - [...] C CNOV Observed: 12/23/2017 Status: COMPLETED Source: [place] 11:20 AM [facility] REPOSITORY Office Visit (INTMWS) MICHAEL GARCIA ([id number]) 1945 F BLD Date Time Provider Department 12/23/17 11:20 AM OLDER, RENY (JULIO C) INTMWS During your visit today, we recorded the following information about you: Temperature Pulse Respiration Blood pressure 98.4 degrees 64/minute 20/minute 136/68 Weight 95.3 kg Reny Older, COFFEE ROASTER HELPER.JULIO C, RODOLFO 12/23/2017 1:08 PM Signed CC: Patient presents with: Hospital F/U: was at [facility] for renal failure HPI Michael Garcia is a 72 year old female who presents today for hospital follow-up/TCM encounter. 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 Going to dialysis [facility]. States she is tolerating it but has [...] 2013 benign - COLONOSCOP W/ OR W/O [facility] SPEC 10/27/2017 Colonoscopy w/bx [facility] - EGD W/O OR W/BRUSH/WASH 10/27/2017 EGD w/bx [facility] - LAPAROSCOPIC CHOLEYCYSTECTOMY Cholecystectomy, lap - REMOVAL [...] oxygen Dx: Hypoxemia. R09.02. 3 LPM via FL continuous. ergocalciferol, vitamin D2, (VITAMIN D) 50,000 [...] dialysis and labs as ordered Follow-up with materials technician Follow-up with PCP sooner than appointment scheduled in February 2. Anemia in chronic kidney disease, unspecified CKD stage - ICD9: 285.21, ICD10: N18.9, D63.1 Continue to monitor CBC. Will be managed by nephrology 3. INES on CPAP - ICD9: 327.23, V46.8, ICD10: G47.33, Z99.89 Unclear why settings were changed. promotions manager will contact Bantr and patient's winch driver concerning patient's symptoms 4. 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] INVALID FOR* CKD (chronic kidney disease) stage 3, GFR 30-59*INVALID FOR* Hypoxemia [R09.02] INVALID FOR* Acute diastolic CHF (congestive heart failure) *INVALID FOR* Anemia in stage 3 chronic kidney disease [N18.3*INVALID FOR* JORGE (acute kidney injury) ([facility]) [N17.9] INVALID FOR* Acute renal failure on dialysis ([facility]) [N17.9, Z*INVALID FOR* Other instructions from your [...] 12/23/17 TUAN Observed: 12/23/2017 Status: COMPLETED Source: [place] 12:00 AM [facility] REPOSITORY Patient Outreach (INTMWS) MICHAEL GARCIA ([id number]) 1945 F BLD Date Time Provider Department 12/23/17 SIMIN AQUINO During your visit today, we recorded the following information about you: Simin Duarte RN 07/17/2018 8:32 AM Signed PRIMARY CARE COORDINATION FOLLOW-UP NOTE Provider Action/FYI Patient identified by name and date of . YES Spoke to [facility] Summary: Spoke with pharmacist who said they should hav reached their deductible- that's what cost so much. Her insulins should cost $131 for a 3 month supply each. called back and LMOM that dose of Lasix she has is 40mg and she was told to resume 1/2 tab BID by Internal Communications Intern to help her kidneys. She has been taking that and has been voiding. They are hoping she can stop dialysis at some point. Concerns: Hand Bander plan for next outreach: Signature Simin Villarreal RN Ambulatory Csr Internal Medicine [facility] December 24, 2017 Allergies As of Date: 12/23/2017 (No Known Allergies) Date Reviewed: 12/23/2017 Reviewed by: Cindy Robles (Automatic Transmission Mechanic) LUCILA Rahman - Fully Assessed Reason for Visit: Csr Hospital Follow Up [1694] Cmt: [facility] 12/12- Prescriptions as of 12/23/2017 Sig: ASPIRIN [...] (HCC) [N17.9, Z*INVALID FOR* Encounter Status:Closed by [employer], PRODUSER on 07/17/18 BASIC METABOLIC Collected: 12/22/2017 Status: F Source: CHRISTOPHER PROFILE (BMP) 8:54 AM [facility] REPOSITORY TYPE CODE TESTS RESULT OUT OF [...] GAP 10 Performed By: #### L500.2500 #### [facility] [address] [place], [address] PROGRESS Observed: 12/19/2017 Status: COMPLETED Source: [place] 5:17 PM [facility] REPOSITORY HNO ID: [id number] Author: Simin Duarte [facility] Service: (none) Author Type: Registered Nurse Type: Progress Notes Filed: 01/15/2018 8:41 AM Note Text: TRANSITION CARE MANAGEMENT (TCM) INITIAL CONTACT Provider Action/FYI: Pt having dialysis MWF 7-11am. On O2 @ 3.5L NC. Eating well, no complaints. Initial contact with patient post discharge, spoke to spouse. Patient identified by name and . SUMMARY: -Pt discharged from [facility] on 12/17/17. -Follow up appointment on 12/23/17 [...] ATN The patient presented from her outpatient materials technician with a positive PANCA, concern for JORGE [...] outpatient, will continued with HD MWF in [place]. She is to avoid NSAIDs/ IV contrast/nephrotoxic [...] right heart catheterization with the patient's outpatient winch driver. She was discharged on her home O2 [...] ? PROGRESS Observed: 12/19/2017 Status: COMPLETED Source: [place] 5:17 PM [facility] REPOSITORY O ID: [id number] Author: Simin Villarreal Service: (none) Author Type: Registered Nurse Type: Progress Notes Filed: 01/15/2018 8:41 AM Note Text: Pt contacted and going to dialysis. TUAN Observed: 12/19/2017 Status: COMPLETED Source: [place] 12:00 AM [facility] REPOSITORY Patient Outreach (INTMWS) MICHAEL GARCIA ([id number]) 1945 F BLD Date Time Provider Department [...] name and . SUMMARY: -Pt discharged from [facility] on 12/17/17. -Follow up appointment on 3/20/18 w/ Reny Older CARPENTER REPAIRER. -Medication review done yes. -Admitted for: Renal failure CONCERNS: No complaints. BSs running 167. Checking BSs TID, occasionally over 200. Doing correction at mealtime. Using O2 @ 3.5L/NC with O2 Sat running 97%. NEW MEDICATIONS: None MEDS HELD/DISCONTINUED: As listed BRIEF HOSPITAL COURSE: ? JORGE on CKD requiring HD, unclear etiology, likely 2/2 ATN The patient presented from her outpatient materials technician with a positive PANCA, concern for JORGE [...] nephrology as outpatient, will continued with HD [facility] in [place]. She is to avoid NSAIDs/ IV contrast/nephrotoxic [...] right heart catheterization with the patient's outpatient winch driver. She was discharged on her home O2 [...] Barth - Fully Assessed Reason for Visit: Csr Hospital Follow Up [4871] Cmt: [facility] 12/12-12/17 Reason For Visit History Recorded Prescriptions [...] FOR* Encounter Status:Closed by SIMIN VILLARREAL on 01/15/18 ALLIED HEALTH Observed: 12/17/2017 Status: COMPLETED Source: [place] 4:14 PM [facility] REPOSITORY HNO ID: [id number] Author: Barbara AnguianoRn) ELI Ryan Service: Home Care Services Author Type: Registered Nurse Type: Allied Health Filed: 12/17/2017 4:47 PM Note Text: RADIO DIRECTOR NOTE SERVICE DATE: 12/17/2017 SERVICE TIME: 4:43 PM Discharge: Aware of Discharge home today Physician order placed for Home Care Services Home Care Agency: [facility] - active Start of care date: 24-48 hours Supplies ordered: n/a Patient/Family agree to discharge plan: yes SIGNATURE: Barbara Ryan RN PATIENT NAME: Michael Garcia DATE: December 17, 2017 TIME: 4:43 PM RADIO DIRECTOR NOTE ALLIED HEALTH Observed: 12/17/2017 Status: COMPLETED Source: [place] 3:55 PM [facility] [place] REPOSITORY HNO ID: [id number] Author: Danette AnguianoRnRikki Cohen RN Service: Home Care Services Author Type: Registered Nurse Type: Allied Health Filed: 12/17/2017 3:57 PM Note Text: RADIO DIRECTOR NOTE SERVICE DATE: 12/17/2017 SERVICE TIME: 3:56 PM Patient Choice: Spoke with patient and family at bedside Discussed home health care services. Patient given a choice - chose Continue with services through [facility]. Will send referral via [employer]. Signed [facility] order obtained. Thank you SIGNATURE: Danette Cohen RN PATIENT NAME: Michael Garcia DATE: December 17, 2017 TIME: 3:55 PM GLUCOSE METER Collected: 12/17/2017 Status: F Source: [facility] 3:33 PM HEALTH SYSTEM REPOSITORY TYPE CODE TESTS RESULT OUT OF REFERENCE UNITS RANGE LAB GLUBL(LOINC 70-99 mg/dL ) High Glucose Meter 203 Result Comment: RN NOTIFIED Performed By: #### GLMET #### [place] [address] CASE MANAGEM Observed: 12/17/2017 Status: COMPLETED Source: [place] 3:17 PM CLINIC OTHER [facility]AMPUS REPOSITORY HNO ID: [id number] Author: Liv AnguianoRn) ELI Fuller Service: Care Management Author Type: Registered Nurse Type: Care Mgt Progress Note Filed: 12/17/2017 3:19 PM Note Text: CARE MANAGEMENT DISCHARGE NOTE SERVICE DATE: 12/17/2017 SERVICE TIME: 1315 LOS: 5 days Admission Date: 12/12/2017 DISCHARGE ARRANGEMENT (list agency and phone number) Home care Provider: [facility] Phone: CAREGIVER ASSESSMENT: Caregiver is ready, willing and able to meet the patient's needs as recommended by the inter-professional team? Yes Patient's transition needs and plan for meeting these needs: yes Does the patient have an acute stroke diagnosis, or has the patient had a stroke during this admission? No HANDOFF COMMUNICATION: Pt going home with [facility]. Pt is active with [facility]. VNS Coordinator notified. TRANSPORTATION ARRANGEMENTS: Car Family here to transport home. They have portable O2 for transport. ADDITIONAL CONTACT RESOURCES: SIGNATURE: Liv Fuller RN PATIENT NAME: Michael Garcia DATE: December 17, 2017 TIME: 3:17 PM PAGER/CONTACT #: [phone] GLUCOSE METER Collected: 12/17/2017 Status: F Source: [facility] 12:11 PM HEALTH SYSTEM REPOSITORY TYPE CODE TESTS RESULT OUT OF REFERENCE UNITS RANGE LAB GLUBL(LOINC 70-99 mg/dL ) High Glucose Meter 170 Result Comment: RN NOTIFIED Performed By: #### GLMET #### [place] [address] NURSING PROG Observed: 12/17/2017 Status: COMPLETED Source: [place] 11:56 AM [facility] OTHER [place] REPOSITORY HNO ID: [id number] Author: Manju AnguianoRn) ELI Quiroga Service: Dialysis Author Type: Registered Nurse Type: Nursing Progress Note Filed: 12/17/2017 11:56 AM Note Text: HEMODIALYSIS TX COMPLETED PAULA WELL STABLE FLUID BALANCE - 1000 ML OFF SEE FLOW SHEET FOR DETAILS CASE MANAGEM Observed: 12/17/2017 Status: COMPLETED Source: [place] 10:31 AM [facility] OTHER [place] REPOSITORY HNO ID: [id number] Author: Liv AnguianoRn) ELI Fuller Service: Care Management Author Type: Registered Nurse Type: Care Mgt Progress Note Filed: 12/17/2017 10:34 AM Note Text: CARE MANAGEMENT PROGRESS NOTE SERVICE DATE: 12/17/2017 SERVICE TIME: 1032 LOS: 5 days Chart reviewed. PT saw and recommending home PT. C tasked and following. Pt has home O2. She wears 3.5 Liters NC. Has multiple DME. Plan home with [facility]. SIGNATURE: Liv Fuller RN PATIENT NAME: Michael Garcia DATE: December 17, 2017 TIME: 10:32 AM PAGER/CONTACT #: [phone] THERAPY NT Observed: 12/17/2017 Status: COMPLETED Source: [place] 8:45 AM [facility] REPOSITORY HNO ID: [id number] Author: Shraddha AnguianoOtr/L) Sylvester Service: Occupational Therapy Author Type: Occupational Therapist Type: Therapy (PT/OT/Speech/Resp) Filed: 12/17/2017 8:46 AM Note Text: OCCUPATIONAL THERAPY MISSED VISIT SERVICE DATE: 12/17/2017 SERVICE TIME: 844 to 08 ROOM: [place] [address] Attempted Evaluation. Patient not seen due to Test/Procedure. Patient at dialysis, will continue to follow as able and appropriate. SIGNATURE: Shraddha Phan OTR/Guzman PATIENT NAME: Michael Garcia DATE: December 17, 2017 TIME: 8:46 AM PAGER/CONTACT #: [phone] PROGRESS Observed: 12/17/2017 Status: COMPLETED Source: [place] 7:18 AM [facility] REPOSITORY HNO ID: [id number] Author: Portillo Romeo Service: Nephrology Author Type: [...] acting) (HumaLOG KWIKPEN) SUBCUTANEOUS w MEALS Jordyn Prikaidarshini (Res) Veliz 1 Units at 12/16/17 1646 fluticasone 50 mcg/actuation 1 [place] (FLONASE) 1 [place] EACH NOSTRIL DAILY Umu (Reflexologist) JULIO C Rios 1 [place]ner at 12/16/17 0842 pill splitter (patient-specific) 1 [...] see her at the kidney center in [place] ([facility]). We will continue to monitor for renal recovery there. The current medication list was reviewed. All medications are appropriately dosed for the current creatinine clearance. 2. Anemia. Continue TEZ with HD. 3. HTN. BP is acceptable. Continue current BP meds. 4. T2DM. Glycemic control per medicine service. Please do not hesitate to contact me at [phone] if there is any question or concern. Matilde Hayward MD (Portillo Romeo) CNDS Observed: 12/17/2017 Status: COMPLETED Source: [place] 7:06 AM [facility] OTHER CAMPUS REPOSITORY HNO ID: [id number] Author: Vani Hodge Service: General Internal Medicine Author Type: Physician Type: Discharge Summaries Filed: 12/18/2017 10:07 PM Note Text: [facility] DISCHARGE SUMMARY Patient: Michael Garcia : 1945 Date of Admission: 12/12/2017 Date of Discharge: 12/17/2017 Attending at Discharge: Dr Vani Hodge Discharged from: [facility] House Medicine Inpatient Service Disposition to: Home with home health care Condition at Discharge: Stable Principal Diagnosis: JORGE on CKD requiring dialysis Secondary Diagnoses: Problem List Noted Noted By Resolved Resolved By JORGE (acute kidney injury) (HCC) 12/12/2017 Noman (Res) Vura No Anemia in stage 3 chronic kidney disease 11/12/2017 Mat Duffy No Acute diastolic CHF (congestive heart failure) (HCC) 08/09/2017 Mat Duffy No Hypoxemia 06/19/2017 Mat Duffy No S/P craniotomy 04/04/2016 Mat Duffy No CREST variant of scleroderma (HCC) 04/04/2016 Mat Duffy No CKD (chronic kidney disease) stage 3, GFR 30-59 ml/min 04/04/2016 Mat Duffy No Type 2 diabetes mellitus with renal manifestations ([facility]) 01/19/2016 Mat Duffy No Overview Signed 01/19/2016 8:15 AM by Mat Romeo, nephrology Essential hypertension with goal blood pressure less than 130/85 01/19/2016 Mat Dumont Hyperlipidemia 01/19/2016 Mat Duffy No Legally blind 01/19/2016 Mat Dumont Diabetic peripheral neuropathy associated with type 2 diabetes mellitus (HCC) 01/19/2016 Mat Dumont Primary osteoarthritis of right knee 01/19/2016 Mat Duffy No Cerebellar hemorrhage, acute ([facility]) 04/04/2016 Mat Duffy 05/05/2017 Mat Duffy 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 - fluticasone 50 mcg/actuation 1 Faulkner (FLONASE) Auto DC at discharge. - sodium [...] CKD requiring dialysis who now presents from materials technician office with elevated P-ANCA on labwork. Vitals: [...] ATN The patient presented from her outpatient materials technician with a positive PANCA, concern for JORGE [...] nephrology as outpatient, will continued with HD [facility] in [place]. She is to avoid NSAIDs/ IV contrast/nephrotoxic [...] right heart catheterization with the patient's outpatient winch driver. She was discharged on her home O2 [...] to 2 weeks. Follow up with OP winch driver in 2-4 weeks. Follow up with materials technician in 2 weeks. Disease Education provided to patient and family. Home health care: established with [facility] Discussed with the attending upon discharge as listed above, and they agree with the plan. Lori Mcgill DO December 17, 2017 7:16 PM Internal Medicine, PGY1 Pager: [phone] [facility] Evaluated Independently on 12/17/2017 Agree with the [...] up. Attestation signed by Vani Hodge MD [facility] Attending December 18, 2017 10:05 PM GLUCOSE METER Collected: 12/17/2017 Status: F Source: [facility] 6:32 AM HEALTH SYSTEM REPOSITORY TYPE CODE TESTS RESULT OUT OF REFERENCE UNITS RANGE LAB GLUBL(LOINC 70-99 mg/dL ) High Glucose Meter 207 Result Comment: RN NOTIFIED Performed By: #### GLMET #### [place] [address] HEMOGRAM Collected: 12/17/2017 Status: F Source: [facility] 4:30 AM HEALTH SYSTEM REPOSITORY TYPE [...] MPV 9.9 Performed By: #### CBC1 #### [facility] [address] [address] BASIC PANEL Collected: 12/17/2017 Status: F Source: [facility] 4:30 AM HEALTH SYSTEM REPOSITORY TYPE [...] Gap 10 Performed By: #### P8 #### [place] [address] MDRD GFR Collected: 12/17/2017 Status: F Source: [facility] 4:30 AM HEALTH SYSTEM REPOSITORY TYPE CODE TESTS RESULT OUT OF RANGE REFERENCE UNITS LAB GFRFN(LOINC >60mL/min/1.73m ) 2 eGFR 15.85 Result Comment: If the patient is , multiply the result by 1.210. Performed By: #### GFR #### [facility] [address] [place] [address] GLUCOSE METER Collected: 12/16/2017 Status: F Source: [facility] 8:36 PM HEALTH SYSTEM REPOSITORY TYPE CODE TESTS RESULT OUT OF REFERENCE UNITS RANGE LAB GLUBL(LOINC 70-99 mg/dL ) High Glucose Meter 270 Result Comment: RN NOTIFIED Performed By: #### GLMET #### [facility] [address] [place] [address] GLUCOSE METER Collected: 12/16/2017 Status: F Source: [facility] 4:07 PM HEALTH SYSTEM REPOSITORY TYPE CODE TESTS RESULT OUT OF REFERENCE UNITS RANGE LAB GLUBL(LOINC 70-99 mg/dL ) High Glucose Meter 193 Result Comment: RN NOTIFIED Performed By: #### GLMET #### [facility] [address] [place] [id number] NURSING PROG Observed: 12/16/2017 Status: COMPLETED Source: [place] 4:05 PM [facility] OTHER [place] REPOSITORY HNO ID: [id number] Author: Laura AnguianoRn) ELI Castillo Service: (none) Author Type: Registered Nurse Type: Nursing Progress Note Filed: 12/16/2017 4:06 PM Note Text: Spoke with Dr. Mcgill from [facility] to request about pain medication per pt request. Dr. Mcgill says orders will be put in. BRIEF OP NOT Observed: 12/16/2017 Status: COMPLETED Source: [place] 3:54 PM [facility] REPOSITORY HNO ID: [id number] Author: Maurizio Winkler Service: Vascular Surgery Author Type: Physician Type: Brief Op Note Filed: 12/16/2017 3:55 PM Note Text: BRIEF OPERATIVE / PROCEDURE NOTE LOG ID: [id number] Surgery/Procedure Date: 12/16/2017 Incision/Procedure Start Time: Incision Close/Procedure End Time: Surgeon(s)/Proceduralist(s) and Electrotherapist(s): Surgeon(s) and Role: * Maurizio Winkler - [...] TUNN DIALYSIS/SAME Observed: 12/16/2017 Status: F Source: [facility] ACCESS [id number] 3:45 PM HEALTH SYSTEM REPOSITORY Performed at [facility] APPROVED BY: MAURIZIO WINKLER MD EXAM [...] NURSING PROG Observed: 12/16/2017 Status: COMPLETED Source: [place] 12:33 PM [facility] REPOSITORY HNO ID: [id number] Author: Manju Watkins (Rn) ELI Quiroga Service: Dialysis Author Type: Registered Nurse Type: Nursing Progress Note Filed: 12/16/2017 12:36 PM Note Text: Received pt in dialysis LIC Diaysis catheter not workind Dr Jenkins notified Order placed for IR to change catheter Will monitor closely NURSING PROG Observed: 12/16/2017 Status: COMPLETED Source: [place] 11:51 AM [facility] REPOSITORY HNO ID: [id number] Author: Janeth AnguianoRn) ELI Pfeiffer Service: Cardiovascular Testing Author Type: Registered Nurse Type: Nursing Progress Note Filed: 12/16/2017 11:53 AM Note Text: Definity IVP given for Image enhancement per protocol. No signs of infiltration, tolerated well GLUCOSE METER Collected: 12/16/2017 Status: F Source: [facility] 10:46 AM HEALTH SYSTEM REPOSITORY TYPE CODE TESTS RESULT OUT OF REFERENCE UNITS RANGE LAB GLUBL(LOINC 70-99 mg/dL ) High Glucose Meter 283 Result Comment: RN NOTIFIED Performed By: #### GLMET #### [facility] [address] [place] [address] PROGRESS Observed: 12/16/2017 Status: COMPLETED Source: [place] 10:13 AM CLINIC OTHER CAMPUS REPOSITORY HNO ID: [id number] Author: Domingo Jenkins Service: Nephrology Author Type: [...] OF PRESENT ILLNESS: Patient has been at [facility] since Friday night. The Patient reports that [...] SUBCUTANEOUS w MEALS fluticasone 50 mcg/actuation 1 Faulkner (FLONASE) 1 Faulkner EACH NOSTRIL DAILY pill splitter (patient-specific) 1 [...] not available but this is unlikely to change attendant pANCA was positive but no clinical manifestations. Catheter malfunctioned today so could not dialyze. Plan Catheter exchange today HD tomorrow and as per schedule MWF. Looking at the creatinine values, she may recover soon. No plans for TPE Can dc tomorrow once HD done She already has an outpatient spot at [facility] ALLIED [facility] Observed: 12/16/2017 Status: COMPLETED Source: [place] 8:51 AM CLINIC OTHER CAMPUS REPOSITORY HNO ID: [id number] Author: Roxann AnguianoRn) ELI Harry Service: Home Care Services Author Type: Registered Nurse Type: Allied Health Filed: 12/16/2017 8:52 AM Note Text: RADIO DIRECTOR NOTE SERVICE DATE: 12/16/2017 SERVICE TIME: 8:51 AM Referral: Home Care referral received by: RO Patient is active with [place] [facility] agency for skilled care Will continue to follow for physician orders SIGNATURE: Roxann Harry RN PATIENT NAME: Michael Garcia DATE: December 16, 2017 TIME: 8:51 AM PROGRESS Observed: 12/16/2017 Status: COMPLETED Source: [place] 8:49 AM [facility] OTHER CAMPUS REPOSITORY HNO ID: [id number] Author: Vani Hodge Service: General Internal Medicine [...] requiring HD admitted currently per recommendation from materials technician for evaluation and management of p ANCA [...] SUBCUTANEOUS w MEALS fluticasone 50 mcg/actuation 1 Faulkner (FLONASE) 1 Faulkner EACH NOSTRIL DAILY pill splitter (patient-specific) 1 [...] December 16, 2017 TIME: 8:49 AM Pager: [phone] Evaluated independently Agree with the above notes by which reflects my input with the following additions Awaiting for renal biopsy and echo Attestation signed by Vani Hodge MD [facility] Attending December 16, 2017 9:51 PM NURSING PROG Observed: 12/16/2017 Status: COMPLETED Source: [place] 8:45 AM [facility] REPOSITORY HNO ID: [id number] Author: Laura (Rn) ELI Castillo Service: (none) Author Type: Registered Nurse Type: Nursing Progress Note Filed: 12/16/2017 8:46 AM Note Text: Continuous pulse ox discontinued per pulm orders. PROGRESS Observed: 12/16/2017 Status: COMPLETED Source: [place] 8:13 AM [facility] OTHER [place] REPOSITORY HNO ID: [id number] Author: Umu Rios CNP Service: Pulmonary Disease Author Type: Nurse Practitioner Type: Progress Notes Filed: 12/16/2017 8:34 AM Note Text: Attestation signed by Raimundo Wall at 12/16/2017 9:04 AM [facility] [place], [facility] PH[facility] NOTE OF PERSONAL INVOLVEMENT IN [...] acting) (HumaLOG KWIKPEN) SUBCUTANEOUS w MEALS Jordyn Hooverdacade (Res) Jose Alfredo fluticasone 50 mcg/actuation 1 Faulkner (FLONASE) 1 Faulkner EACH NOSTRIL DAILY Umu Hyatt) JULIO C Rios 1 Faulkner at 12/15/17 0855 pill splitter (patient-specific) 1 [...] LABS/MICRO DATA/RADIOLOGY FILMS NO MICROBIOLOGY DATA BNP 58845 PROCALCITONIN 0.29 BMP: Glucose (mg/dL) Date Value [...] OP follow up with Dr. Valencia in [place]. May eventually need RHC. 5) Acute on [...] to follow up with Dr. Valencia in [place] as outlined above. SIGNATURE: Umu Rios CNP PATIENT NAME: Michael Garcia DATE: December 16, 2017 TIME: 8:13 AM PAGER/CONTACT #: [phone] GLUCOSE METER Collected: 12/16/2017 Status: F Source: [facility] 6:39 AM HEALTH SYSTEM REPOSITORY TYPE CODE TESTS RESULT OUT OF REFERENCE UNITS RANGE LAB GLUBL(LOINC 70-99 mg/dL ) High Glucose Meter 250 Result Comment: RN NOTIFIED Performed By: #### GLMET #### [place] [address] HEMOGRAM Collected: 12/16/2017 Status: F Source: [facility] 3:25 AM HEALTH SYSTEM REPOSITORY TYPE [...] MPV 9.7 Performed By: #### CBC1 #### [place] [address] BASIC PANEL Collected: 12/16/2017 Status: F Source: [facility] 3:25 AM HEALTH SYSTEM REPOSITORY TYPE [...] Gap 10 Performed By: #### P8 #### [place] [address] MDRD GFR Collected: 12/16/2017 Status: F Source: [facility] 3:25 AM HEALTH SYSTEM REPOSITORY TYPE CODE TESTS RESULT OUT OF RANGE REFERENCE UNITS LAB GFRFN(LOINC >60mL/min/1.73m ) 2 eGFR 15.91 Result Comment: If the patient is , multiply the result by 1.210. Performed By: #### GFR #### [facility] [address], [place] [address] GLUCOSE METER Collected: 12/15/2017 Status: F Source: [facility] 8:24 PM HEALTH SYSTEM REPOSITORY TYPE CODE TESTS RESULT OUT OF REFERENCE UNITS RANGE LAB GLUBL(LOINC 70-99 mg/dL ) High Glucose Meter 223 Result Comment: RN NOTIFIED Performed By: #### GLMET #### [facility] [address], [place] [address] GLUCOSE METER Collected: 12/15/2017 Status: F Source: [facility] 3:41 PM HEALTH SYSTEM REPOSITORY TYPE CODE TESTS RESULT OUT OF REFERENCE UNITS RANGE LAB GLUBL(LOINC 70-99 mg/dL ) High Glucose Meter 152 Result Comment: RN NOTIFIED Performed By: #### GLMET #### [facility] [address], [place] [address] CASE MGT INIT Observed: 12/15/2017 Status: COMPLETED Source: [facility] 3:14 PM CLINIC OTHER CAMPUS REPOSITORY HNO ID: [id number] Author: Liv (Rn) ELI Fuller Service: Care Management Author Type: Registered Nurse Type: Care Mgt Initial Assessment Filed: 12/15/2017 3:29 PM Note Text: CARE MANAGEMENT: ASSESSMENT AND DISCHARGE PLAN SERVICE DATE: 12/15/2017 SERVICE TIME: 1515 PRIMARY CARE PHYSICIAN: Mat Duffy MD ADMISSION STATUS: Inpatient Needs Prior to Discharge: To Be Determined;OT/PT Evaluation;Pharmacy Bedside Delivery MEDICAL: Patient/Stator Winder Stated Goals: To return home to life [...] Receive Any Community Services or Home Care? Long-Term Equipment Prior to Admission: Walker, home O2 3.5 liters nc , rollator, transport chair, shower seat, grab bars Has the Patient Been in a Long-Term Facility in the Past 30 days? No [...] 0 I feel financially burdened by my iht-gy-ustsys expenses for my prescription medication: Disagree completely [...] a dialysis pt. Pt gets dialysis through [facility] in [place] Every MWF. Chair time 0600. SIGNATURE: Liv Fuller RN PATIENT NAME: Michael Garcia DATE: December 15, 2017 TIME: 3:15 PM PAGER/CONTACT #: [phone] PLAN OF CARE Observed: 12/15/2017 Status: COMPLETED Source: [place] 3:03 PM CLINIC OTHER CAMPUS REPOSITORY O ID: [id number] Author: Belinda Rice (Management Trainee) Service: Pharmacy Author Type: Pharmacist Type: Plan [...] Allergies: ALLERGIES No Known Allergies Preferred Pharmacy: [facility] ([phone]) or [email or web address] ([phone]) Current CARDIOLOGY FELLOW Medications: Prior to Admission medications as of [...] needed for Wheezing/Shortness of Breath. Padma Bangura (Pyrotechnician) December 15, 2017 3:03 PM I discussed medication history with pharmacy cashier. I removed a duplicate vitamin D order from the patient's medication list. BELINDA RICE, PHARMACIST 4:[address] NEEDLE BIOPSY Observed: 12/15/2017 Status: F Source: [facility] RENAL 2:48 PM HEALTH SYSTEM REPOSITORY Performed at [facility] APPROVED BY: Manuel Mcgee MD EXAM [...] with administration of agent, ends when continuous voaq-hx-fxfg time ends): 20 minutes. Patient monitoring: I personally supervised and directed an independent trained observer who assisted in monitoring the patient?s level of consciousness and physiological status throughout the procedure. Medication: 100 micrograms of fentanyl IV; 2 milligrams of Versed IV IMPRESSION: Technically successful CT-guided random biopsy of left kidney. BRIEF OP NOT Observed: 12/15/2017 Status: COMPLETED Source: [place] 2:27 PM [facility] REPOSITORY HNO ID: [id number] Author: Manuel Mcgee Service: (none) Author Type: Physician Type: Brief Op Note Filed: 12/15/2017 2:28 PM Note Text: INTERVENTIONAL RADIOLOGY POST PROCEDURE NOTE DATE: 12/15/17 NAME: Michael Garcia LOG ID: [id number] Pre-Procedure Diagnosis: Renal failure Post Procedure Diagnosis: Same. 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 0 ml Specimen: Sent for pathology. Complications: None. Full report with procedural details to follow and will become available under Imaging Reports. Please contact for any questions or concerns. HISTORY PHYSICAL Observed: 12/15/2017 Status: COMPLETED Source: [place] 1:42 PM [facility] REPOSITORY HNO ID: [id number] Author: Manuel Mcgee Service: (none) Author Type: [...] CHEST B-SCAN Observed: 12/15/2017 Status: F Source: [facility] 1:40 PM HEALTH SYSTEM REPOSITORY Performed at [facility] APPROVED BY: Manuel Mcgee MD EXAM TITLE: ULTRASOUND LEFT CHEST DATE: 12/15/2017 13:32 COMPARISON: None. CLINICAL INDICATION/HISTORY: Left pleural effusion TECHNIQUE: Ultrasound scanning of the left thorax was performed. FINDINGS: No left pleural effusion was identified. IMPRESSION: No left pleural effusion is identified. A left thoracentesis was not performed. GUILLAUME BY IFA SCREEN Collected: 12/15/2017 Status: F Source: [facility] 12:15 PM HEALTH SYSTEM REPOSITORY TYPE CODE TESTS RESULT OUT OF REFERENCE UNITS RANGE LAB ANAX(LOINC) GUILLAUME by IFA SEE BELOW Screen Result Comment: GUILLAUME Positive AB NEGAT Normal range : negative at <1:80 serum dilution. GUILLAUME Titer 1:640 AB NEGAT GUILLAUME Pattern Homogeneous Performing Laboratory: [facility] [address] [place] [address] Performed By: #### ANAX #### [place] [address] GLUCOSE METER Collected: 12/15/2017 Status: F Source: [facility] 10:48 AM HEALTH SYSTEM REPOSITORY TYPE CODE TESTS RESULT OUT OF REFERENCE UNITS RANGE LAB GLUBL(LOINC 70-99 mg/dL ) High Glucose Meter 175 Result Comment: RN NOTIFIED Performed By: #### GLMET #### [place] [address] PROGRESS Observed: 12/15/2017 Status: COMPLETED Source: [place] 10:36 AM CLINIC OTHER CAMPUS REPOSITORY O ID: [id number] Author: Vani Hodge Service: Nephrology Author Type: [...] OF PRESENT ILLNESS: Patient has been at [facility] since Friday night. Patient reports that she was at a hospital in [place] being treated for pneumonia and UTI and was receiving HD at that time for JORGE. The pt. was instructed to come of [facility] for kidney biopsy. Pt. Will undergo kidney [...] INTRAVENOUS PRN(NO DISPENSE) fluticasone 50 mcg/actuation 1 Faulkner (FLONASE) 1 Faulkner EACH NOSTRIL DAILY loratadine 10 mg tab(s) [...] #: PROGRESS Observed: 12/15/2017 Status: COMPLETED Source: [place] 10:22 AM CLINIC OTHER CAMPUS REPOSITORY HNO ID: [id number] Author: Vani Hodge Service: General Internal Medicine [...] requiring HD admitted currently per recommendation from materials technician for evaluation and management of p ANCA [...] INTRAVENOUS PRN(NO DISPENSE) fluticasone 50 mcg/actuation 1 Faulkner (FLONASE) 1 Faulkner EACH NOSTRIL DAILY loratadine 10 mg tab(s) [...] December 15, 2017 TIME: 8:26 AM Pager: [phone] Transferred to my service Chart reviewed Evaluated independently Discussed with Dr. Vleiz and agree with above notes which reflect my input with following additions Awaiting for renal biopsy Discussed with patient Attestation signed by Vani Hodge MD [facility] Attending December 15, 2017 9:46 PM THERAPY NT Observed: 12/15/2017 Status: COMPLETED Source: [place] 8:50 AM CLINIC OTHER CAMPUS REPOSITORY HNO ID: [id number] Author: Frances (Pt) ROBERT Piña Service: Physical Therapy Author Type: Physical Therapist Type: Therapy (PT/OT/Speech/Resp) Filed: 12/15/2017 8:56 AM Note Text: Physical Therapy Evaluation SERVICE DATE: 12/15/2017 SERVICE TIME: 804 to 834 ROOM: [id number] Recommended Discharge Disposition: Home PT Anticipated Discharge [...] gait and mobility-other Interventions Provided: Evaluation;Gait Training (03816) $ Evaluation-Moderate (12044) Billed Units: 1 unit Gait Training (57746) Treatment Minutes: 8 1 unit Skilled Intervention(s): [...] verbal cues for proper hand placement during qno-rx-mrgww transfers Patient set up in chair with [...] Problems Diagnosis - JORGE (acute kidney injury) ([facility]) PAST MEDICAL HISTORY Diagnosis Date - Cerebellar hemorrhage, acute (HCC) 04/04/2016 - CKD (chronic kidney disease) stage 3, GFR 30-59 ml/min 04/04/2016 - CREST variant of scleroderma (HCC) 04/04/2016 - Diabetic peripheral neuropathy associated with type 2 diabetes mellitus ([facility]) 01/19/2016 - Essential hypertension with goal blood [...] Type 2 diabetes mellitus with renal manifestations ([facility]) 01/19/2016 Dr. Romeo, nephrology - Umbilical hernia without obstruction and without gangrene 01/19/2016 PAST SURGICAL HISTORY Procedure Laterality Date - ACHILLES TENDON SURGERY HX Right 1995 - BREAST BIOPSY CORE Left 2013 benign - COLONOSCOP W/ OR W/O [facility] SPEC 10/27/2017 Colonoscopy w/bx [facility] - EGD W/O OR W/BRUSH/WASH 10/27/2017 EGD w/bx [facility] - LAPAROSCOPIC CHOLEYCYSTECTOMY Cholecystectomy, lap - REMOVAL OF TONSILS,<14 Y/O 1974 Tonsillectomy - REPAIR ROTATOR CUFF,ACUTE Right 1986 - REVISE MEDIAN N/CARPAL TUNNEL SURG Right 1989 - REVISE ULNAR NERVE AT ELBOW Right 1989 Patient Report: Lying on her back in bed. States her stomach and chest are uncomfortable. Rates 7/10 discomfort. Agreeable to PT Home Environment Patient Lives With: Significant Other ([facility]) Assistance Available: 24 Hour Entry To Home: [...] 15, 2017 TIME: 8:50 AM PAGER/CONTACT #: [phone] PROGRESS Observed: 12/15/2017 Status: COMPLETED Source: [place] 8:16 AM [facility] REPOSITORY O ID: [id number] Author: Teresa Palacio CNP Service: Pulmonary Disease Author Type: Nurse Practitioner Type: Progress Notes Filed: 12/15/2017 8:36 AM Note Text: Attestation signed by Raimundo Wall at 12/15/2017 9:18 AM [facility] [place], [facility] PHYSICIAN NOTE OF PERSONAL INVOLVEMENT IN [...] ;with Dr Jose Valencia Pulm noted Holding atb SIGNATURE: Raimundo Wall MD [facility] TIME of SERVICE: 9:16 AM PULMONARY/CCM PROGRESS NOTE [facility] SERVICE DATE: December 15, 2017 SERVICE TIME: 8:16 AM Subjective Denies shortness of breath at rest, but does admit to some [place] Denies cough or phlegm production Still complaining of sinus draining and post nasal drip Denies chest pain, fevers/chills/sweats, nausea/vomiting/diarrhea Wears 3.5LO2 at home Objective CURRENT MEDICATIONS Current Facility-Administered Medications: fluticasone 50 mcg/actuation 1 Faulkner (FLONASE) 1 Faulkner EACH NOSTRIL DAILY Umu (Reflexologist) Gabriel, ROUGH ROUNDER 1 Faulkner at 12/14/17 1211 loratadine 10 mg tab(s) (CLARITIN) 10 mg ORAL DAILY Umu (Reflexologist) Catharpin, ROUGH ROUNDER 10 mg at 12/14/17 1210 pill splitter [...] LABS/MICRO DATA/RADIOLOGY FILMS NO MICROBIOLOGY DATA BNP 44332 PROCALCITONIN 0.29 BMP: Glucose (mg/dL) Date Value [...] OP follow up with Dr Valencia in [place]. 5) Acute on Chronic Diastolic HF with [...] 15, 2017 TIME: 8:16 AM PAGER/CONTACT #: [phone] GLUCOSE METER Collected: 12/15/2017 Status: F Source: [facility] 6:58 AM HEALTH SYSTEM REPOSITORY TYPE CODE TESTS RESULT OUT OF REFERENCE UNITS RANGE LAB GLUBL(LOINC 70-99 mg/dL ) High Glucose Meter 172 Result Comment: RN NOTIFIED Performed By: #### GLMET #### [facility] [address] [place] [address] HEMOGRAM Collected: 12/15/2017 Status: F Source: [facility] 3:15 AM HEALTH SYSTEM REPOSITORY TYPE [...] MPV 9.6 Performed By: #### CBC1 #### [facility] [address] [place] [address] BASIC PANEL Collected: 12/15/2017 Status: F Source: [facility] 3:15 AM HEALTH SYSTEM REPOSITORY TYPE [...] Gap 10 Performed By: #### P8 #### [place] [address] MDRD GFR Collected: 12/15/2017 Status: F Source: [facility] 3:15 AM HEALTH SYSTEM REPOSITORY TYPE CODE TESTS RESULT OUT OF RANGE REFERENCE UNITS LAB GFRFN(LOINC >60mL/min/1.73m ) 2 eGFR 16.98 Result Comment: If the patient is , multiply the result by 1.210. Performed By: #### GFR #### [place] [address] PROTIME Collected: 12/15/2017 Status: F Source: [facility] 3:15 AM HEALTH SYSTEM REPOSITORY TYPE CODE TESTS RESULT OUT OF REFERENCE UNITS RANGE LAB PTI(LOINC) 9.3-11.9 sec Prothrombin Time 10.3 LAB INR(LOINC) INR 0.97 Result Comment: Standard Therapy 2.0-3.0 High Dose 2.5-3.5 Performed By: #### PT #### [place] [address] ACTIVATED PTT Collected: 12/15/2017 Status: F Source: [facility] 3:15 AM HEALTH SYSTEM REPOSITORY TYPE CODE TESTS RESULT OUT OF REFERENCE UNITS RANGE LAB APTT(LOINC 22.0-34.0 sec ) Activated PTT 23.7 Performed By: #### APTT #### [place] [address] LD,TOTAL BLOOD Collected: 12/15/2017 Status: F Source: [facility] 3:10 AM HEALTH SYSTEM REPOSITORY TYPE CODE TESTS RESULT OUT OF RANGE REFERENCE UNITS LAB LDH(LOINC) 84-246 U/L LD,Total 154 Blood Performed By: #### LDH #### [place] [address] TOTAL PROTEIN Collected: 12/15/2017 Status: F Source: [facility] 3:10 AM HEALTH SYSTEM REPOSITORY TYPE CODE TESTS RESULT OUT OF REFERENCE UNITS RANGE LAB TP(LOINC) 6.4-8.2 g/dL Low Total Protein 6.2 Performed By: #### TP #### [place] [address] SURGICAL PATHOLOGY Observed: 12/15/2017 Status: F Source: [place] 12:00 AM [facility] REPOSITORY Specimen #: [id number] Submitting Physician: BIANCA LOBO FINAL DIAGNOSIS Left tlingit & haida kidney, biopsy: - Nodular diabetic glomerulosclerosis (48 [...] MD (Electronic Signature) SPECIMEN SUBMITTED A: LEFT BARROW KIDNEY, BIOPSY ([id number]) MICROSCOPIC DESCRIPTION Sections are stained with H&E, [...] in glomeruli. Albumin highlights background tissue architecture. Rover and lambda stain equally throughout the tubulointerstitium. [...] in-situ hybridization tests have been determined by [facility] [place] [facility] in a manner consistent with CLIA requirements. One or more of these tests have not been cleared or approved by the FDA. [facility] is regulated under CLIA as qualified to [...] OF CREST. GROSS DESCRIPTION A. Received in [facility] are multiple segments of cylindrical romeo, soft tissue aggregating 5.0 x 0.1 x 0.1 cm. The specimen is washed in maleimide solution. A portion is frozen and kept frozen for direct immunofluorescence. A portion is submitted for electron microscopy. A portion is submitted in formalin for light microscopy in cassette A2. Gross examination performed at [facility] [address] 12/15/2017 Date of Report: 12/17/2017 Date of Procedure: 12/15/2017 Date of Receipt: 12/15/2017 Submitted by: BIANCA LOBO Location: Diagnostic interpretation performed at [facility], [facility] [address], [place] [address]. SURGICAL TISSUE EXAM Observed: 12/15/2017 Status: F Source: [facility] 12:00 AM HEALTH SYSTEM REPOSITORY Test performed at [place] [address] NAME: MICHAEL GARCIA REQUESTING: BIANCA LOBO MD FINAL DIAGNOSIS: CORE BIOPSY OF LEFT KIDNEY - THE SPECIMEN IS FORWARDED TO THE [facility] FOR PROCESSING AND EVALUATION. OPERATIVE [...] of 1 Performed By: #### SURG #### [place] [address] PATHOLOGY MISCELLANEOUS Observed: 12/15/2017 Status: F Source: [facility] 12:00 AM HEALTH SYSTEM REPOSITORY Test performed at [place] [address] NAME: JOSE MICHAEL REQUESTING: BIANCA LOBO MD DIAGNOSIS: Left [place] Kidney Biopsy: See the full outside report from [facility]. SPECIMEN: TISSUE FOR SEND-OUT, Kidney Bx - [facility] EXTERNAL CONSULT, PATHOLOGIST (Electronic signature on file) Signed out: 01/02/2018 14:38 PRINTED: 01/02/2018 Page 1 of 1 Performed By: #### MISC #### [place] [address] GLUCOSE METER Collected: 12/14/2017 Status: F Source: [facility] 7:40 PM HEALTH SYSTEM REPOSITORY TYPE CODE TESTS RESULT OUT OF REFERENCE UNITS RANGE LAB GLUBL(LOINC 70-99 mg/dL ) High Glucose Meter 227 Result Comment: RN NOTIFIED Performed By: #### GLMET #### [place] [address] GLUCOSE METER Collected: 12/14/2017 Status: F Source: [facility] 4:07 PM HEALTH SYSTEM REPOSITORY TYPE CODE TESTS RESULT OUT OF REFERENCE UNITS RANGE LAB GLUBL(LOINC 70-99 mg/dL ) High Glucose Meter 217 Result Comment: RN NOTIFIED Performed By: #### GLMET #### [facility] [address] [place], [place] [address] HEMOGRAM Collected: 12/14/2017 Status: F Source: [facility] 3:08 HEALTH SYSTEM REPOSITORY TYPE CODE [...] MPV 9.8 Performed By: #### CBC1 #### [facility] [address] [place] [address] N-TERMINAL PRO-BNP Collected: 12/14/2017 Status: F Source: [facility] 3:08 HEALTH SYSTEM REPOSITORY TYPE CODE TESTS RESULT OUT OF RANGE REFERENCE UNITS LAB PBNP(LOINC) pg/ml 16878 N-terminal Pro-BNP Result Comment: Acute CHF Rule-in <50 yrs old >= 450 pg/ml >50 yrs old >= 900 pg/ml Abnormal Pro-BNP All patients >=300 pg/ml Performed By: #### PBNP #### [facility] [address] [place] [id number] BASIC PANEL Collected: 12/14/2017 Status: F Source: [facility] 3:08 HEALTH SYSTEM REPOSITORY TYPE CODE [...] Gap 10 Performed By: #### P8 #### [place] [address] MDRD GFR Collected: 12/14/2017 Status: F Source: [facility] 3:08 PM HEALTH SYSTEM REPOSITORY TYPE CODE TESTS RESULT OUT OF RANGE REFERENCE UNITS LAB GFRFN(LOINC >60mL/min/1.73m ) 2 eGFR 19.21 Result Comment: If the patient is , multiply the result by 1.210. Performed By: #### GFR #### [place] [address] PROGRESS Observed: 12/14/2017 Status: COMPLETED Source: [place] 2:15 PM CLINIC OTHER CAMPUS REPOSITORY HNO ID: [id number] Author: Nidia Jones MD Service: Nephrology Author Type: Physician Type: Progress Notes Filed: 12/14/2017 2:18 PM Note Text: CONSULT PROGRESS NOTE NEPHROLOGY SERVICE Following for JORGE on HD No complaints today No nausea No vomiting No SOB No CP MEDICATIONS: Current hospital medications: fluticasone 50 mcg/actuation 1 Faulkner (FLONASE) 1 Faulkner EACH NOSTRIL DAILY loratadine 10 mg tab(s) [...] to follow ? ? Nidia Jones MD [phone] ? CHEST 2 VIEWS Observed: 12/14/2017 Status: F Source: [facility] 2:07 PM HEALTH SYSTEM REPOSITORY Performed at [facility] APPROVED BY: Kvng Avitia MD EXAMINATION: CHEST RADIOGRAPH (2 VIEW FRONTAL & LATERAL) Clinical History: Chest pain. MQ: [id number] Comparison: 12/13/2017 at 03 15. RESULT: Lines, tubes, and devices: Large bore left internal jugular central catheter with tip in the distal superior vena cava. Overlying security monitor leads. Lungs and pleura: No focal infiltrate or effusion. Some degree of prominent vascularity centrally. Cardiomediastinal silhouette: Cardiomegaly. Other: The patient has had previous resection of the distal right clavicle. IMPRESSION: Cardiomegaly. No pleural effusions. Prominent central vasculature suggesting an element of vascular congestion. LUNG VENTILATION Observed: 12/14/2017 Status: F Source: [facility] 1:59 PM HEALTH SYSTEM REPOSITORY Performed at [facility] APPROVED BY: ALLA SELF MD VENTILATION-PERFUSION [...] NURSING PROG Observed: 12/14/2017 Status: COMPLETED Source: [place] 12:00 PM CLINIC OTHER CAMPUS REPOSITORY HNO ID: [id number] Author: Nabila (Rn) ELI Cartagena Service: (none) Author Type: Registered Nurse Type: Nursing Progress Note Filed: 12/14/2017 4:15 PM Note Text: Nursing Progress Note Patient Name: Michael Garcia Patient Location: [place] [address] [address]* Pt c/o 04/14 heavy chest pain. Spoke with Dr Veliz by phone who stated she would come see the pt This note was completed by: Nabila Cartagena RN GLUCOSE METER Collected: 12/14/2017 Status: F Source: [facility] 10:37 AM HEALTH SYSTEM REPOSITORY TYPE CODE TESTS RESULT OUT OF REFERENCE UNITS RANGE LAB GLUBL(LOINC 70-99 mg/dL ) High Glucose Meter 253 Result Comment: RN NOTIFIED Performed By: #### GLMET #### [place] [address] PROGRESS Observed: 12/14/2017 Status: COMPLETED Source: [place] 9:00 AM CLINIC OTHER CAMPUS REPOSITORY HNO ID: [id number] Author: Jordyn Decker (Arun) Jose Alfredo Service: [...] pulmonary recommendations for this very special patient. [facility] DAILY PROGRESS NOTE SERVICE DATE: 12/14/2017 [...] December 14, 2017 TIME: 8:26 AM Pager: [phone] CONSULT Observed: 12/14/2017 Status: COMPLETED Source: [place] 8:35 AM [facility] OTHER CAMPUS REPOSITORY HNO ID: [id number] Author: Umu Rios CNP Service: Pulmonary Disease Author Type: Nurse Practitioner Type: Consults Filed: 12/14/2017 11:02 AM Note Text: Attestation signed by Echo Fernandes at 12/15/2017 9:40 AM [facility] [place], [facility]PER[facility] BY [facility] PHYSICIAN NOTE OF PERSONAL INVOLVEMENT IN [...] Pulmonary will follow SIGNATURE: Echo Fernandes MD [facility] DATE of SERVICE: december [...] in July and once just recently at [place] (admitted 11/27 - 12/08 and treated for [...] HISTORY Diagnosis Date - Cerebellar hemorrhage, acute ([facility]) 04/04/2016 - CKD (chronic kidney disease) stage 3, GFR 30-59 ml/min 04/04/2016 - CREST variant of scleroderma ([facility]) 04/04/2016 - Diabetic peripheral neuropathy associated with type 2 diabetes mellitus ([facility]) 01/19/2016 - Essential hypertension with goal blood pressure less than 130/85 01/19/2016 - Hyperlipidemia 01/19/2016 - Ischemic ulcer of finger with necrosis of muscle ([facility]) 01/19/2016 Left 3rd finger tip - Lazy eye of left side 1950s - Legally blind 01/19/2016 - Primary osteoarthritis of right knee 01/19/2016 - Retinal hemorrhage of right eye 2007 - S/P craniotomy 04/04/2016 - Type 2 diabetes mellitus with renal manifestations ([facility]) 01/19/2016 Dr. Romeo, nephrology - Umbilical hernia without obstruction and without gangrene 01/19/2016 PAST SURGICAL HISORY PAST SURGICAL HISTORY Procedure Laterality Date - ACHILLES TENDON SURGERY HX Right 1995 - BREAST BIOPSY CORE Left 2013 benign - COLONOSCOP W/ OR W/O [facility] SPEC 10/27/2017 Colonoscopy w/bx [facility] - EGD W/O OR W/BRUSH/WASH 10/27/2017 EGD w/bx [facility] - LAPAROSCOPIC CHOLEYCYSTECTOMY Cholecystectomy, lap - REMOVAL [...] (MIRALAX, GLYCOLAX) 17 g ORAL DAILY Bianca Lee Lashell 17 g at 12/14/17 0824 senna-docusate [...] k/uL No recent new micro found in [facility] RADIOLOGY FILMS: CXR 12/13/17: 1. Lines, Tubes, [...] 51% No PSGs / PFTs found in [facility] ? VITALS: BP 119/65 Pulse 64 Temp [...] OP follow up with Dr. Valencia in [place]. 5. Suspected Acute on chronic diastolic heart [...] 10. Recent LLL Pneumonia - treated at [facility] with Zosyn AND Levaquin 11. MMP - per primary 12. Further evaluation with attending to follow. SIGNATURE: Umu Rios CNP PATIENT NAME: Michael Garcia DATE: December 14, 2017 TIME: 8:35 AM PAGER/CONTACT #: [phone] ? GLUCOSE METER Collected: 12/14/2017 Status: F Source: [facility] 6:29 AM HEALTH SYSTEM REPOSITORY TYPE CODE TESTS RESULT OUT OF REFERENCE UNITS RANGE LAB GLUBL(LOINC 70-99 mg/dL ) High Glucose Meter 132 Performed By: #### GLMET #### [place] [address] NURSING PROG Observed: 12/14/2017 Status: COMPLETED Source: [place] 4:24 AM CLINIC OTHER CAMPUS REPOSITORY O ID: [id number] Author: Bhavya (Rn) ELI Forrest Service: Nursing Author Type: Registered Nurse Type: Nursing Progress Note Filed: 12/14/2017 4:27 AM Note Text: Nursing Progress Note Patient Name: Michael Garcia Patient Location: [place] [address] [address]* Daily Note: Patient was found sleeping without BiPAP mask on, was found to be 62% on room air. BiPAP was placed back on and pulled up in bed. Oxygen back to 94% on BiPAP, instructed to not remove mask when sleeping. Patient agreeable, will continue to monitor. This note was completed by: Bhavya Forrest RN IONIZED CALCIUM Collected: 12/13/2017 Status: F Source: [facility] 11:30 PM HEALTH SYSTEM REPOSITORY TYPE CODE TESTS RESULT OUT OF REFERENCE UNITS RANGE LAB CAION(LOINC 4.43-4.93 mg/dL ) Low Ionized 3.82 Calcium LAB PHCAI(LOINC 7.320-7.420 ) pH 7.381 LAB CAPH(LOINC) 4.36-4.73 mg/dL Low Ionized 3.78 Ca,PH7.4 Performed By: #### IONCA #### [facility] [address] [place] [address] MAGNESIUM BLOOD Collected: 12/13/2017 Status: F Source: [facility] 11:30 PM HEALTH SYSTEM REPOSITORY TYPE CODE TESTS RESULT OUT OF REFERENCE UNITS RANGE LAB MAG(LOINC) 1.6-2.6 mg/dL Magnesium Blood 1.6 Performed By: #### MAG #### [place] [address] PHOSPHORUS BLOOD Collected: 12/13/2017 Status: F Source: [facility] 11:30 PM HEALTH SYSTEM REPOSITORY TYPE CODE TESTS RESULT OUT OF REFERENCE UNITS RANGE LAB PHOS(LOINC 2.5-4.9 mg/dL ) Low Phosphorus Blood 2.1 Performed By: #### PHOS #### [facility] [address] [place] [address] LD,TOTAL BLOOD Collected: 12/13/2017 Status: F Source: [facility] 11:30 PM HEALTH SYSTEM REPOSITORY TYPE CODE TESTS RESULT OUT OF RANGE REFERENCE UNITS LAB LDH(LOINC) 84-246 U/L LD,Total 127 Blood Performed By: #### LDH #### [place] [address] TOTAL PROTEIN Collected: 12/13/2017 Status: F Source: [facility] 11:30 PM HEALTH SYSTEM REPOSITORY TYPE CODE TESTS RESULT OUT OF REFERENCE UNITS RANGE LAB TP(LOINC) 6.4-8.2 g/dL Low Total Protein 6.3 Performed By: #### TP #### [place] [address] PROGRESS Observed: 12/13/2017 Status: COMPLETED Source: [place] 10:53 PM CLINIC OTHER CAMPUS REPOSITORY HNO ID: [id number] Author: Luisa Lim Service: Hospital Medicine Author [...] metoprolol and amiodarone since admission. States at [facility] has been having some irregular heart rates, not sure if A-fib. Per previous records from major donor coordinator may have Hx of PAF in the [...] NURSING PROG Observed: 12/13/2017 Status: COMPLETED Source: [place] 9:47 PM CLINIC OTHER CAMPUS REPOSITORY HNO ID: [id number] Author: Bhavya (Rn) ELI Forrest Service: Nursing Author Type: Registered Nurse Type: Nursing Progress Note Filed: 12/13/2017 9:48 PM Note Text: Nursing Progress Note Patient Name: Michael Garcia Patient Location: [place] [address] [address]* Daily Note: Spoke with [facility] regarding patient now AFib on tele, HR ranging between 100's to 140's. States they will be up to see the patient. This note was completed by: Bhavya Forrest RN GLUCOSE METER Collected: 12/13/2017 Status: F Source: [facility] 8:06 PM HEALTH SYSTEM REPOSITORY TYPE CODE TESTS RESULT OUT OF REFERENCE UNITS RANGE LAB GLUBL(LOINC 70-99 mg/dL ) High Glucose Meter 149 Result Comment: RN NOTIFIED Performed By: #### GLMET #### [place] [address] GLUCOSE METER Collected: 12/13/2017 Status: F Source: [facility] 7:03 PM HEALTH SYSTEM REPOSITORY TYPE CODE TESTS RESULT OUT OF REFERENCE UNITS RANGE LAB GLUBL(LOINC 70-99 mg/dL ) High Glucose Meter 102 Result Comment: RN NOTIFIED Performed By: #### GLMET #### [facility] [address] [place] [id number] NURSING PROG Observed: 12/13/2017 Status: COMPLETED Source: [place] 7:00 PM CLINIC OTHER CAMPUS REPOSITORY HNO ID: [id number] Author: Manju Watkins (Rn) ELI Quiroga Service: Dialysis Author Type: Registered Nurse Type: Nursing Progress Note Filed: 12/13/2017 8:08 PM Note Text: HEMODIALYSIS TX COMPLETED PAULA WELL STABLE -2000 ML OFF SEE FLOW SHEET FOR DETAILS CONSULT Observed: 12/13/2017 Status: COMPLETED Source: [place] 3:42 PM CLINIC OTHER CAMPUS REPOSITORY HNO ID: [id number] Author: Nidia Jones MD Service: Nephrology Author [...] and HPLD. Patient was admitted recently to [facility] with pneumonia and UTI. Her hospital stay was complicated with JORGE on CKD . Initially JORGE was contributed to [facility] from sepsis with Afib and RVR. Patient was started on HD. So far had 5 sessions of HD. Last HD session was yesterday but was aborted early because she was told to come to [facility] [place] . Patient was found to [...] Type 2 diabetes mellitus with renal manifestations ([facility]) 01/19/2016 Dr. Romeo, nephrology - Umbilical hernia without obstruction and without gangrene 01/19/2016 PAST SURGICAL HISTORY Procedure Laterality Date - ACHILLES TENDON SURGERY HX Right 1995 - BREAST BIOPSY CORE Left 2013 benign - COLONOSCOP W/ OR W/O [facility] SPEC 10/27/2017 Colonoscopy w/bx [facility] - EGD W/O OR W/BRUSH/WASH 10/27/2017 EGD w/bx [facility] - LAPAROSCOPIC CHOLEYCYSTECTOMY Cholecystectomy, lap - REMOVAL [...] Will continue to follow Nidia Jones MD [phone] GLUCOSE METER Collected: 12/13/2017 Status: F Source: [facility] 10:42 AM HEALTH SYSTEM REPOSITORY TYPE CODE TESTS RESULT OUT OF REFERENCE UNITS RANGE LAB GLUBL(LOINC 70-99 mg/dL ) High Glucose Meter 253 Result Comment: RN NOTIFIED Performed By: #### GLMET #### [facility] [address] [place] [address] PROCALCITONIN Collected: 12/13/2017 Status: F Source: [facility] 9:05 AM HEALTH SYSTEM REPOSITORY TYPE [...] procalcitonin elevations. Performed By: #### PRCAS #### [facility] [address] [place] [address] PROGRESS Observed: 12/13/2017 Status: COMPLETED Source: [place] 8:25 AM CLINIC OTHER CAMPUS REPOSITORY O ID: [id number] Author: Jordyn Decker (Res) Jose Alfredo Service: General Internal Medicine Author [...] work up in progress as outlined below. [facility] DAILY PROGRESS NOTE SERVICE DATE: 12/13/2017 [...] December 13, 2017 TIME: 8:26 AM Pager: [phone] GLUCOSE METER Collected: 12/13/2017 Status: F Source: [facility] 6:25 AM HEALTH SYSTEM REPOSITORY TYPE CODE TESTS RESULT OUT OF REFERENCE UNITS RANGE LAB GLUBL(LOINC 70-99 mg/dL ) High Glucose Meter 208 Performed By: #### GLMET #### [facility] [address] [place] [id number] CHEST 1 VIEW Observed: 12/13/2017 Status: F Source: [facility] 3:38 AM HEALTH SYSTEM REPOSITORY Performed at [facility] APPROVED BY: MARION WYATT MD CHEST [...] chest PROGRESS Observed: 12/13/2017 Status: COMPLETED Source: [place] 3:08 AM CLINIC OTHER CAMPUS REPOSITORY HNO ID: [id number] Author: Yared Reynolds Service: General Internal Medicine [...] she has no history of CAD or [place]. I was able to exaggerate the discomfort [...] visits. HEMOGRAM Collected: 12/13/2017 Status: F Source: [facility] 3:05 AM HEALTH SYSTEM REPOSITORY TYPE [...] MPV 9.9 Performed By: #### CBC1 #### [place] [address] TROPONIN I Collected: 12/13/2017 Status: F Source: [facility] 3: AM HEALTH SYSTEM REPOSITORY TYPE CODE TESTS RESULT OUT OF REFERENCE UNITS RANGE LAB TROP(LOINC) 0.015-0.045 ng/ml Troponin I 0.016 Performed By: #### TROP #### [place] [address] BASIC PANEL Collected: 12/13/2017 Status: F Source: [facility] 3:[facility] REPOSITORY TYPE CODE [...] Gap 9 Performed By: #### P8 #### [place] [address] MDRD GFR Collected: 12/13/2017 Status: F Source: [address] SYSTEM REPOSITORY TYPE CODE TESTS RESULT OUT OF RANGE REFERENCE UNITS LAB GFRFN(LOINC >60mL/min/1.73m ) 2 eGFR 12.11 Result Comment: If the patient is , multiply the result by 1.210. Performed By: #### GFR #### [place] [address] NURSING PROG Observed: 12/13/2017 Status: COMPLETED Source: [place] 2:50 AM [facility] REPOSITORY HNO ID: [id number] Author: Michell (Rn) ELI Ríos Service: Nursing [...] arms or back; no nausea. VS charted. [facility] paged - resident on their way to the floor to evaluate pt. GLUCOSE METER Collected: 12/12/2017 Status: F Source: [facility] 7:52 PM HEALTH SYSTEM REPOSITORY TYPE CODE TESTS RESULT OUT OF REFERENCE UNITS RANGE LAB GLUBL(LOINC 70-99 mg/dL ) High Glucose Meter 254 Result Comment: RN NOTIFIED Performed By: #### GLMET #### [facility] [address] [place] [address] NURSING PROG Observed: 12/12/2017 Status: COMPLETED Source: [place] 6:29 PM [facility] REPOSITORY HNO ID: [id number] Author: Yvonne (Rn) ELI Martinez Service: (none) Author Type: Registered Nurse Type: Nursing Progress Note Filed: 12/12/2017 6:32 PM Note Text: Nursing Progress Note Patient Name: Michael Garcia Patient Location: [place] [address] [address]* Daily Note: 1527 Pt arrived to unit from home with family on supplemental O2. VSS. Admission assessment completed, page out to sound (dr worley admitting) 1550 Spoke with sound, trying to transfer patient to [facility]? Will await further instruction. 1600 Pt wants to spend the night, pt in semi-private room. Spoke with [facility], pt okay to move to 8121 when clean. 1630 Sound and house med on unit, pt being transferred to house med service 1830 Orders placed for patient. Insulin scheduled q6 not achs? Page out to [facility] This note was completed by: Yvonne Martinez RN HISTORY PHYSICAL Observed: 12/12/2017 Status: COMPLETED Source: [place] 5:10 PM CLINIC OTHER CAMPUS REPOSITORY HNO ID: [id number] Author: Lori (Arun) Abu Hweij Service: Hospital Medicine Author Type: Resident Type: [...] L at home, She was admitted to [facility] 11/27/17, she presented with chest pain, minimal [...] HISTORY Diagnosis Date - Cerebellar hemorrhage, acute ([facility]) 04/04/2016 - CKD (chronic kidney disease) stage 3, GFR 30-59 ml/min 04/04/2016 - CREST variant of scleroderma ([facility]) 04/04/2016 - Diabetic peripheral neuropathy associated with type 2 diabetes mellitus ([facility]) 01/19/2016 - Essential hypertension with goal blood pressure less than 130/85 01/19/2016 - Hyperlipidemia 01/19/2016 - Ischemic ulcer of finger with necrosis of muscle ([facility]) 01/19/2016 Left 3rd finger tip - Lazy eye of left side 1949s - Legally blind 01/19/2016 - Primary osteoarthritis of right knee 01/19/2016 - Retinal hemorrhage of right eye 2007 - S/P craniotomy 04/04/2016 - Type 2 diabetes mellitus with renal manifestations ([facility]) 01/19/2016 Dr. Romeo, nephrology - Umbilical hernia without obstruction and without gangrene 01/19/2016 PAST SURGICAL HISTORY Procedure Laterality Date - ACHILLES TENDON SURGERY HX Right 1995 - BREAST BIOPSY CORE Left 2013 benign - COLONOSCOP W/ OR W/O [facility] SPEC 10/27/2017 Colonoscopy w/bx [facility] - EGD W/O OR W/BRUSH/WASH 10/27/2017 EGD w/bx [facility] - LAPAROSCOPIC CHOLEYCYSTECTOMY Cholecystectomy, lap - REMOVAL [...] ventilatory defct detected on PFT 2016 at [facility]/ [facility] - also complicated with left sided pleural effusion, was supposed to have thoracentesis done at [facility], will check CXR, and order afterwards IR [...] 12, 2017 TIME: 5:10 PM PAGER/CONTACT #: [phone] HEMOGRAM/DIFF Collected: 12/12/2017 Status: F Source: [facility] 4:20 PM HEALTH SYSTEM REPOSITORY TYPE [...] 0.74 LAB MONON(LOIN 0.27-0.70 thou/cmm C) Abs. Estill 0.57 LAB EOSN(LOINC 0.00-0.31 thou/cmm ) Abs. Eosin 0.10 LAB BASON(LOIN 0.01-0.08 thou/cmm C) Abs. Baso 0.03 Performed By: #### CBCD1 #### [facility] [address] [place] [address] COMPREHENSIVE PANEL Collected: 12/12/2017 Status: F Source: [facility] 4:20 PM HEALTH SYSTEM REPOSITORY TYPE [...] Gap 9 Performed By: #### P14 #### [place] [address] PHOSPHORUS BLOOD Collected: 12/12/2017 Status: F Source: [facility] 4:20 PM HEALTH SYSTEM REPOSITORY TYPE CODE TESTS RESULT OUT OF REFERENCE UNITS RANGE LAB PHOS(LOINC 2.5-4.9 mg/dL ) High Phosphorus Blood 5.0 Performed By: #### PHOS #### [place] [address] MAGNESIUM BLOOD Collected: 12/12/2017 Status: F Source: [facility] 4:20 PM HEALTH SYSTEM REPOSITORY TYPE CODE TESTS RESULT OUT OF REFERENCE UNITS RANGE LAB MAG(LOINC) 1.6-2.6 mg/dL Magnesium Blood 2.3 Performed By: #### MAG #### [facility] [address] [place] [address] MDRD GFR Collected: 12/12/2017 Status: F Source: [facility] 4:20 PM HEALTH SYSTEM REPOSITORY TYPE CODE TESTS RESULT OUT OF RANGE REFERENCE UNITS LAB GFRFN(LOINC >60mL/min/1.73m ) 2 eGFR 14.16 Result Comment: If the patient is , multiply the result by 1.210. Performed By: #### GFR #### [facility] [address] [address] HGB A1C Collected: 12/12/2017 Status: F Source: [facility] 4:20 PM HEALTH SYSTEM REPOSITORY TYPE CODE TESTS RESULT OUT OF RANGE REFERENCE UNITS LAB A1C5(LOINC) 4.2-6.3 % High Hgb A1c 7.6 Result Comment: Method is National Glycohemoglobin Standardization Program (NGSP) compliant. LAB ESAVG(LOINC) mg/dl Est. Avg Glucose 171 Performed By: #### HA1C #### [facility] [address] [address] GLUCOSE METER Collected: 12/12/2017 Status: F Source: [facility] 3:55 PM HEALTH SYSTEM REPOSITORY TYPE CODE TESTS RESULT OUT OF REFERENCE UNITS RANGE LAB GLUBL(LOINC 70-99 mg/dL ) High Glucose Meter 178 Result Comment: RN NOTIFIED Performed By: #### GLMET #### [place] [address] HOSP Observed: 12/12/2017 Status: COMPLETED Source: [place] 12:00 AM CLINIC OTHER CAMPUS REPOSITORY Patient:Michael Garcia MRN: <[id number]> Height:5' 5(1.651 m) Weight:217 lb 2.5 oz [...] acting) (HumaLOG KWIKPEN) fluticasone 50 mcg/actuation 1 Faulkner (FLONASE) pill splitter (patient-specific) atorvastatin 40 mg [...] S/P craniotomy [Z98.890] CREST variant of scleroderma ([facility]) [M34.1] CKD (chronic kidney disease) stage 3, GFR 30-59 ml/min [N18.3] Hypoxemia [R09.02] Acute diastolic CHF (congestive heart failure) ([facility]) [I50.31] Anemia in stage 3 chronic kidney disease [N18.3, D63.1] JORGE (acute kidney injury) ([facility]) [N17.9] Allergies: No Known Allergies Date Verified:12/16/17 [...] L at home, She was admitted to [facility] 11/27/17, she presented with chest pain, minimal [...] ml/min 04/04/2016 - CREST variant of scleroderma ([facility]) 04/04/2016 - Diabetic peripheral neuropathy associated with type 2 diabetes mellitus ([facility]) 01/19/2016 - Essential hypertension with goal blood pressure less than 130/85 01/19/2016 - Hyperlipidemia 01/19/2016 - Ischemic ulcer of finger with necrosis of muscle ([facility]) 01/19/2016 Left 3rd finger tip - Lazy eye of left side - Legally blind 01/19/2016 - Primary osteoarthritis of right knee 01/19/2016 - Retinal hemorrhage of right eye 2007 - S/P craniotomy 04/04/2016 - Type 2 diabetes mellitus with renal manifestations ([facility]) 01/19/2016 Dr. Romeo, nephrology - Umbilical hernia without obstruction and without gangrene 01/19/2016 PAST SURGICAL HISTORY Procedure Laterality Date - ACHILLES TENDON SURGERY HX Right 1995 - BREAST BIOPSY CORE Left 2013 benign - COLONOSCOP W/ OR W/O BRSH SPEC 10/27/2017 Colonoscopy w/bx [facility] - EGD W/O OR W/BRUSH/WASH 10/27/2017 EGD w/bx [facility] - LAPAROSCOPIC CHOLEYCYSTECTOMY Cholecystectomy, lap - REMOVAL [...] ventilatory defct detected on PFT 2016 at [facility]/ [facility] - also complicated with left sided pleural effusion, was supposed to have thoracentesis done at [facility], will check CXR, and order afterwards IR [...] 12, 2017 TIME: 5:10 PM PAGER/CONTACT #: [phone] Previous Version Yvonne Martinez, RN, RN 12/12/2017 6:32 PM Signed Nursing Progress Note Patient Name: Michael Garcia Patient Location: [place] [address] [id number]* Daily Note: 1527 Pt arrived to unit from home with family on supplemental O2. VSS. Admission assessment completed, page out to [facility] (dr worley admitting) 1550 Spoke with [facility], trying to transfer patient to [facility]? Will await further instruction. 1600 Pt wants to spend the night, pt in semi-private room. [facility], pt okay to move to 81 when clean. 1630 [facility] med on unit, pt being transferred to [facility] service 1830 Orders placed for patient. Insulin scheduled q6 not achs? Page out to [facility] This note was completed by: Yvonne Martinez, ELI January Michoacano RN, RN 12/13/2017 3:17 AM Signed Pt c/o chest pain. States she woke up to it around 230a. Tech states pt walked to the bathroom without difficulty. Pt describes it as a dull, heavy feeling across her entire chest. No pain radiating to arms or back; no nausea. VS charted. [facility] paged - resident on their way [...] she has no history of CAD or [place]. I was able to exaggerate the discomfort [...] up in progress as outlined below. Bruna Cary DAILY PROGRESS NOTE SERVICE DATE: 12/13/2017 SERVICE [...] Amiodarone 2/2 pulm HTN - records from [facility] reviewed, not on anticoagulation 2/2 anemia and hx of intra cerebral bleed ? CREST Constipation - Will add senna ? PAD - Continue ASA, Statin ? INES - CPAP at night ? Nasal pressure ulcer (POA) 2/2 cpap mask ? DVT PPX - Lovenox renal dose SIGNATURE: Jordyn Veliz MD PATIENT NAME: Michael Garcia DATE: December 13, 2017 TIME: 8:26 AM Pager: [phone] Previous Version Nidia Jones MD, MD 12/13/2017 [...] and HPLD. Patient was admitted recently to [facility] with pneumonia and UTI. Her hospital stay was complicated with JORGE on CKD . Initially JORGE was contributed to ATN from sepsis with Afib and RVR. Patient was started on HD. So far had 5 sessions of HD. Last HD session was yesterday but was aborted early because she was told to come to [facility] to [facility] . Patient was found to [...] neuropathy associated with type 2 diabetes mellitus ([facility]) 01/19/2016 - Essential hypertension with goal blood [...] Type 2 diabetes mellitus with renal manifestations ([facility]) 01/19/2016 Dr. Romeo, nephrology - Umbilical hernia without obstruction and without gangrene 01/19/2016 PAST SURGICAL HISTORY Procedure Laterality Date - ACHILLES TENDON SURGERY HX Right 1995 - BREAST BIOPSY CORE Left 2013 benign - COLONOSCOP W/ OR W/O [facility] SPEC 10/27/2017 Colonoscopy w/bx [facility] - EGD W/O OR W/BRUSH/WASH 10/27/2017 EGD w/bx [facility] - LAPAROSCOPIC CHOLEYCYSTECTOMY Cholecystectomy, lap - REMOVAL [...] Will continue to follow Nidia Jones MD [phone] Manju Quiroga, RN, RN 12/13/2017 8:08 PM Signed HEMODIALYSIS TX COMPLETED PAULA WELL STABLE -2000 ML OFF SEE FLOW SHEET FOR DETAILS Bhavya Forrest, RN, RN 12/13/2017 9:48 PM Signed Nursing Progress Note Patient Name: Michael Garcia Patient Location: [id number]/[facility]3085-584* Daily Note: Spoke with [facility] regarding patient now AFib on tele, [...] metoprolol and amiodarone since admission. States at [facility] has been having some irregular heart rates, not sure if A-fib. Per previous records from major donor coordinator may have Hx of PAF in the [...] sleep. Luisa Lim MD PGY-2, IM Bhavya Forrest, ELI, RN 12/14/2017 4:27 AM Signed Nursing Progress Note Patient Name: Michael Garcia Patient Location: [id number]/[facility]8100-819* Daily Note: Patient was found sleeping without BiPAP mask on, was found to be 62% on room air. BiPAP was placed back on and pulled up in bed. Oxygen back to 94% on BiPAP, instructed to not remove mask when sleeping. Patient agreeable, will continue to monitor. This note was completed by: ELI Burns CNP, ROUGH ROUNDER 12/14/2017 11:02 AM Attested Addendum Attestation signed by Echo Fernandes at 12/15/2017 9:40 AM [facility] [place], [facility] NOTE OF PERSONAL INVOLVEMENT IN [...] Pulmonary will follow SIGNATURE: Echo Fernandes MD [facility] DATE of SERVICE: december [...] in July and once just recently at [place] (admitted 11/27 - 12/08 and treated for [...] HISTORY Diagnosis Date - Cerebellar hemorrhage, acute ([facility]) 04/04/2016 - CKD (chronic kidney disease) stage 3, GFR 30-59 ml/min 04/04/2016 - CREST variant of scleroderma ([facility]) 04/04/2016 - Diabetic peripheral neuropathy associated with type 2 diabetes mellitus ([facility]) 01/19/2016 - Essential hypertension with goal blood pressure less than 130/85 01/19/2016 - Hyperlipidemia 01/19/2016 - Ischemic ulcer of finger with necrosis of muscle ([facility]) 01/19/2016 Left 3rd finger tip - Lazy eye of left side 1950s - Legally blind 01/19/2016 - Primary osteoarthritis of right knee 01/19/2016 - Retinal hemorrhage of right eye 2007 - S/P craniotomy 04/04/2016 - Type 2 diabetes mellitus with renal manifestations ([facility]) 01/19/2016 Dr. Romeo, nephrology - Umbilical hernia without obstruction and without gangrene 01/19/2016 PAST SURGICAL HISORY PAST SURGICAL HISTORY Procedure Laterality Date - ACHILLES TENDON SURGERY HX Right 1995 - BREAST BIOPSY CORE Left 2013 benign - COLONOSCOP W/ OR W/O [facility] SPE[facility] 10/27/2017 Colonoscopy w/bx [facility] - EGD W/O OR W/BRUSH/WASH 10/27/2017 EGD w/bx [facility] - LAPAROSCOPIC CHOLEYCYSTECTOMY Cholecystectomy, lap - REMOVAL [...] (MIRALAX, GLYCOLAX) 17 g ORAL DAILY Bianca Lee Lashell 17 g at 12/14/17 0824 senna-docusate [...] k/uL No recent new micro found in [facility] RADIOLOGY FILMS: CXR 12/13/17: 1. Lines, Tubes, [...] 51% No PSGs / PFTs found in [facility] ? VITALS: BP 119/65 Pulse 64 Temp [...] OP follow up with Dr. Valencia in [place]. 5. Suspected Acute on chronic diastolic heart failure with EF 65% - Continue with BB. Keep outputs > inputs, daily weights, CHF diet. May need to be more aggressive with volume management/removal via HD. 6. INES - CPAP complaint QHS / all sleep 7. Obesity with BMI of 36.50 - weight loss strongly encouraged. 8. JORGE on CKD - suspect 2/ #9 / acute vasculitis - Continue with plasmapheresis / HD per nephrology. Awaiting renal biopsy 12/15. May need to begin treatment with Rituxan AND steroids if biopsy is positive. 9. Questionable history of CREST syndrome 10. Recent LLL Pneumonia - treated at [facility] with Zosyn AND Levaquin 11. MMP - per primary 12. Further evaluation with attending to follow. SIGNATURE: Umu Rios CNP PATIENT NAME: Michael Garcia DATE: December 14, 2017 TIME: 8:35 AM PAGER/CONTACT #: [phone] ? Attestation signed by Echo Fernandes at 12/14/2017 10:16 AM to a previous version PULMONARY PROGRESS NOTE [facility] SERVICE DATE: December 14, 2017 SERVICE TIME: 10:04 AM Subjective 72yr old female admitted with JORGE/CKD and ANCA vasculitis. Started on plasmapheresis. Patient c/o significant shortness of breath and stuffy nose. Denies any wheezing, cough, phlegm, chest pain, fevers or chills. OBJECTIVE Current Facility-Administered Medications: fluticasone 50 mcg/actuation 1 Faulkner (FLONASE) 1 Faulkner EACH NOSTRIL DAILY Umu Rios CNP loratadine 10 mg tab(s) (CLARITIN) 10 mg ORAL DAILY Umu Rios CNP insulin regular human injection (short acting) (NovoLIN R,HumuLIN R) SUBCUTANEOUS w MEALS Roulan (Res) Abu Hweij 1 Units at 12/14/17 0823 atorvastatin 40 mg tab(s) (LIPITOR) 40 mg ORAL AT BEDTIME Roulan (Res) Abu Hweij 40 mg at 12/13/17 2057 epoetin osvaldo 3,000 Units injection (PROCRIT) 3,000 [...] for underlying problems. pulmonary will follow SIGNATURE: Ehco Fernandes MD,[facility] PATIENT NAME: Michael Garcia DATE: December 14, 2017 TIME: 10:04 AM PAGER/CONTACT #: [phone] Previous Version Jordyn Veliz MD 12/14/2017 12:54 [...] Amiodarone 2/2 pulm HTN - records from [facility] reviewed, not on anticoagulation 2/2 anemia and hx of intra cerebral bleed ? CREST Constipation - Will add senna ? PAD - Continue ASA, Statin ? INES - CPAP at night ? Nasal pressure ulcer (POA) 2/2 cpap mask ? DVT PPX - Lovenox renal dose SIGNATURE: Jordyn Veliz MD PATIENT NAME: Michael Garcia DATE: December 14, 2017 TIME: 8:26 AM Pager: [phone] Nabila Cartagena RN, RN 12/14/2017 4:15 PM Signed Nursing Progress Note Patient Name: Michael Garcia Patient Location: [place] [address]/[id number]* Pt c/o 04/14 heavy chest pain. Spoke with Dr Veliz by phone who stated she would come see the pt This note was completed by: ELI Matos MD, 12/14/2017 2:18 PM Signed CONSULT PROGRESS NOTE NEPHROLOGY SERVICE Following for JORGE on HD No complaints today No nausea No vomiting No SOB No CP MEDICATIONS: Current hospital medications: fluticasone 50 mcg/actuation 1 Faulkner (FLONASE) 1 Faulkner EACH NOSTRIL DAILY loratadine 10 mg tab(s) [...] to follow ? ? Nidia Jones MD [phone] ? Teresa Palacio ROUGH ROUNDER, ROUGH ROUNDER 12/15/2017 8:36 AM Attested Addendum Attestation signed by Raimundo Wall at 12/15/2017 9:18 AM [facility] [place], [facility] BY [facility] PH[facility] NOTE OF PERSONAL INVOLVEMENT IN [...] thora via US Will follow up ;with Chet Oquendo noted Holding atb SIGNATURE: Raimundo Wall MD [...] Current Facility-Administered Medications: fluticasone 50 mcg/actuation 1 Faulkner (FLONASE) 1 Faulkner EACH NOSTRIL DAILY Umu (Reflexologist) Catharpin, ROUGH ROUNDER 1 Faulkner at 12/14/17 1211 loratadine 10 mg tab(s) (CLARITIN) 10 mg ORAL DAILY Umu (Reflexologist) Catharpin, ROUGH ROUNDER 10 mg at 12/14/17 1210 pill splitter [...] AT BEDTIME Bianca Lobo 1 tablet at 12/14/172017 insulin glargine 39 Units pen (long acting) (LANTUS SOLOSTAR, BASAGLAR) 39 Units SUBCUTANEOUS AT BEDTIME Roulan (Res) Abu Hweij 39 Units at 12/14/172017 metoprolol tartrate (short acting) 12.5 mg tab(s) (LOPRESSOR) 12.5 mg ORAL q 12 H Luisa (Res) Sharkhatunyan 12.5 mg at 12/14/17 2018 sodium chloride-aloe vera topical nasal gel (AYR GEL w/ALOE) INTRANASAL PRN Luisa (Res) Sharkhatunyan 1 application at 12/13/17 6957 albuterol HFA 90 mcg/actuation 2 Puff (PROVENTIL [...] LABS/MICRO DATA/RADIOLOGY FILMS NO MICROBIOLOGY DATA BNP 85785 PROCALCITONIN 0.29 BMP: Glucose (mg/dL) Date Value [...] OP follow up with Dr Valencia in [place]. 5) Acute on Chronic Diastolic HF with [...] 15, 2017 TIME: 8:16 AM PAGER/CONTACT #: [phone] Previous Version Frances Piañ, PT, PT 12/15/2017 8:56 AM Signed Physical Therapy Evaluation SERVICE DATE: 12/15/2017 SERVICE TIME: 804 to 834 ROOM: [id number] Recommended Discharge Disposition: Home PT Anticipated Discharge [...] gait and mobility-other Interventions Provided: Evaluation;Gait Training (00130) $ Evaluation-Moderate (92883) Billed Units: 1 unit Gait Training (19482) Treatment Minutes: 8 1 unit Skilled Intervention(s): [...] verbal cues for proper hand placement during ils-rb-xziob transfers Patient set up in chair with [...] Problems Diagnosis - JORGE (acute kidney injury) ([facility]) PAST MEDICAL HISTORY Diagnosis Date - Cerebellar hemorrhage, acute ([facility]) 04/04/2016 - CKD (chronic kidney disease) stage 3, GFR 30-59 ml/min 04/04/2016 - CREST variant of scleroderma ([facility]) 04/04/2016 - Diabetic peripheral neuropathy associated with type 2 diabetes mellitus ([facility]) 01/19/2016 - Essential hypertension with goal blood pressure less than 130/85 01/19/2016 - Hyperlipidemia 01/19/2016 - Ischemic ulcer of finger with necrosis of muscle ([facility]) 01/19/2016 Left 3rd finger tip - Lazy eye of left side 1949s - Legally blind 01/19/2016 - Primary osteoarthritis of right knee 01/19/2016 - Retinal hemorrhage of right eye 2007 - S/P craniotomy 04/04/2016 - Type 2 diabetes mellitus with renal manifestations ([facility]) 01/19/2016 Dr. Romeo, nephrology - Umbilical hernia without obstruction and without gangrene 01/19/2016 PAST SURGICAL HISTORY Procedure Laterality Date - ACHILLES TENDON SURGERY HX Right 1995 - BREAST BIOPSY CORE Left 2013 benign - COLONOSCOP W/ OR W/O [facility] SPEC 10/27/2017 Colonoscopy w/bx [facility] - EGD W/O OR W/BRUSH/WASH 10/27/2017 EGD w/bx [facility] - LAPAROSCOPIC CHOLEYCYSTECTOMY Cholecystectomy, lap - REMOVAL OF TONSILS,<12 Y/O 1974 Tonsillectomy - REPAIR ROTATOR CUFF,ACUTE Right 1986 - REVISE MEDIAN N/CARPAL TUNNEL SURG Right 1989 - REVISE ULNAR NERVE AT ELBOW Right 1989 Patient Report: Lying on her back in bed. States her stomach and chest are uncomfortable. Rates 7/10 discomfort. Agreeable to PT Home Environment Patient Lives With: [facility] Assistance Available: 24 Hour Entry To Home: [...] 15, 2017 TIME: 8:50 AM PAGER/CONTACT #: [phone] Vani Hodge MD 12/15/2017 9:47 PM Signed [facility] DAILY PROGRESS NOTE SERVICE DATE: 12/15/2017 SERVICE TIME: 8:26 AM This is a 72 year old female with PMHx of CREST, HTN, CAD, Chronic respiratory failure on 3.5 L home O2 and T2DM with recent hospital admission for PNA, UTI, new onset Afib, c.diff, and JORGE requiring HD admitted currently per recommendation from materials technician for evaluation and management of p ANCA [...] INTRAVENOUS PRN(NO DISPENSE) fluticasone 50 mcg/actuation 1 Faulkner (FLONASE) 1 Faulkner EACH NOSTRIL DAILY loratadine 10 mg tab(s) [...] Amiodarone 2/2 pulm HTN - records from [facility] reviewed, not on anticoagulation 2/2 anemia and hx of intra cerebral bleed ? CREST Constipation - on senna ? PAD - Continue ASA, Statin ? INES - CPAP at night ? Nasal pressure ulcer (POA) 2/2 cpap mask ? DVT PPX - Lovenox renal dose SIGNATURE: Jordyn Veliz MD PATIENT NAME: Michael Garcia DATE: December 15, 2017 TIME: 8:26 AM Pager: [phone] Transferred to my service Chart reviewed Evaluated independently Discussed with Dr. Veliz and agree with above notes which reflect my input with following additions Awaiting for renal biopsy Discussed with patient Attestation signed by Vani Hodge MD [facility] Attending December 15, 2017 [...] OF PRESENT ILLNESS: Patient has been at [facility] since Friday night. Patient reports that she was at a hospital in [place] being treated for pneumonia and UTI and was receiving HD at that time for JORGE. The pt. was instructed to come of [facility] for kidney biopsy. Pt. Will undergo kidney [...] INTRAVENOUS PRN(NO DISPENSE) fluticasone 50 mcg/actuation 1 Faulkner (FLONASE) 1 Faulkner EACH NOSTRIL DAILY loratadine 10 mg tab(s) [...] SIGNATURE: Feroz Moody Ms PATIENT NAME: Michael Garcai DATE: December 15, 2017 TIME: 10:36 AM [...] DATE: 12/15/17 NAME: Michael Garcia LOG ID: [id number] Pre-Procedure Diagnosis: Renal failure Post Procedure Diagnosis: Same. 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 Manuel Mcgee (Primary) Procedure: Biopsy Anesthesia: [...] ALLERGIES No Known Allergies Preferred Pharmacy: [facility] ([phone]) or [facility] ([phone]) Current CARDIOLOGY FELLOW Medications: Prior to Admission medications as of [...] needed for Wheezing/Shortness of Breath. Padma Bangura (Pyrotechnician) December 15, 2017 3:03 PM I discussed medication history with pharmacy cashier. I removed a duplicate vitamin D order from the patient's medication list. BELINDA RICE, PHARMACIST 4:27 PM Previous Version Liv Fuller, RN, RN 12/15/2017 3:29 PM Addendum CARE MANAGEMENT: ASSESSMENT AND DISCHARGE PLAN SERVICE DATE: 12/15/2017 SERVICE TIME: 1515 PRIMARY CARE PHYSICIAN: Mat Duffy MD ADMISSION STATUS: Inpatient Needs Prior to Discharge: To Be Determined;OT/PT Evaluation;Pharmacy Bedside Delivery MEDICAL: Patient/Stator Winder Stated Goals: To return home to life [...] Receive Any Community Services or Home Care? Long-Term Equipment Prior to Admission: Walker, home O2 3.5 liters nc , rollator, transport chair, shower seat, grab bars Has the Patient Been in a Long-Term Facility in the Past 30 days? No [...] 0 I feel financially burdened by my iyk-ah-cvqkqv expenses for my prescription medication: Disagree completely [...] a dialysis pt. Pt gets dialysis through [facility] in [place] Every MWF. Chair time 0600. SIGNATURE: Liv Fuller RN PATIENT NAME: Michael Garcia DATE: December 15, 2017 TIME: 3:15 PM PAGER/CONTACT #: [phone] Previous Version Umu Rios CNP, CNP 12/16/2017 8:34 AM Attested Attestation signed by Raimundo Wall at 12/16/2017 9:04 AM [facility] [place], [facility] PH[facility] NOTE OF PERSONAL INVOLVEMENT IN CARE I have reviewed the documentation by the AYLEEN and I personally participated in the martienz components on 8100. I have discussed the [...] of SERVICE: 9:01 AM PULMONARY/CCM PROGRESS NOTE [facility] SERVICE DATE: December 16, 2017 SERVICE TIME: [...] 4 Units SUBCUTANEOUS w MEALS Dharmvir (Res) Ayaan 4 Units at 12/15/17 1624 loratadine 5 mg tab(s) (CLARITIN) 5 mg ORAL DAILY Dharmvir (Res) Ayaan insulin lispro pen (rapid acting) (HumaLOG KWIKPEN) SUBCUTANEOUS w MEALS Jordyn Priyadarsmichael (Res) Jose Alfredo fluticasone 50 mcg/actuation 1 Faulkner (FLONASE) 1 Faulkner EACH NOSTRIL DAILY Umu Hyatt) JULIO C Rois 1 Faulkner at 12/15/17 0855 pill splitter (patient-specific) 1 [...] Units INTRALUMINAL 3 Times weekly with mckayla Jones, MD 3,800 Units at 12/13/17 1845 polyethylene glycol 3350 17 g packet (MIRALAX, GLYCOLAX) 17 g ORAL DAILY Biancaklaudia Voo 17 g at 12/14/17 0824 senna-docusate [...] LABS/MICRO DATA/RADIOLOGY FILMS NO MICROBIOLOGY DATA BNP 54072 PROCALCITONIN 0.29 BMP: Glucose (mg/dL) Date Value [...] 95/52 Pulse: 65 67 67 60 Resp: 18 18 18 Temp: 36.8 ?C (98.2 ?F) 36.7 ?C [...] OP follow up with Dr. Valencia in [place]. May eventually need RHC. 5) Acute on [...] to follow up with Dr. Valencia in [place] as outlined above. SIGNATURE: Umu Rios CNP PATIENT NAME: Michael Garcia DATE: December 16, 2017 TIME: 8:13 AM PAGER/CONTACT #: [phone] Laura Castillo, RN, RN 12/16/2017 8:46 AM Signed Continuous pulse ox discontinued per pulm orders. Roxann aHrry RN, RN 12/16/2017 8:52 AM Signed RADIO DIRECTOR NOTE SERVICE DATE: 12/16/2017 SERVICE TIME: 8:51 AM Referral: Home Care referral received by: RO Patient is active with [place] [facility] agency for skilled care Will [...] OF PRESENT ILLNESS: Patient has been at [facility] since Friday night. The Patient reports that [...] SUBCUTANEOUS w MEALS fluticasone 50 mcg/actuation 1 Faulkner (FLONASE) 1 Faulkner EACH NOSTRIL DAILY pill splitter (patient-specific) 1 [...] change catheter Will monitor closely Progress Notes ([facility]): rTavis Crespo RN 12/11/2017 11:01 AM Signed 1) [facility] HH- reports patient was discharged from [...] 5:09 PM Signed Pt was admitted to [facility] today. Discard note. PROGRESS Observed: 12/10/2017 Status: COMPLETED Source: [place] 4:50 PM [facility] REPOSITORY HNO ID: [id number] Author: Simin Villarreal Service: (none) Author Type: Registered Nurse Type: Progress Notes Filed: 12/12/2017 5:09 PM Note Text: PRIMARY CARE COORDINATION QUICK NOTE Provider Action/FYI Pt admitted to [facility] this afternoon due to kidney inflammation per . Patient identified by name and date . Pt was home but after dialysis, she was sent to [facility] for admission. No notes available yet- will follow for D/C. Simin Villarreal RN Ambulatory Csr Internal Medicine [facility] 12 LEAD ELECTROCARDIOGRAM Observed: 12/10/2017 Status: F Source: [place] 1:47 PM [facility] REPOSITORY [facility] Cardiovascular Services [address] [place] [address] 12 Lead EKG 03/02/18 2314 MR#: [id number] Acct: [id number] Name: MICHAEL GARCIA Rep #: [id number] : 1945 72 From: Darien Mcclendon MD [...] UNCONFIRMED Confirmed by DARIEN MCCLENDON MD ([id number]), technical writer and editor HONORIO SHEFFIELD ([id number]) on 12/10/2017 1:47:12 PM Referred By: JEANNETTE Confirmed By:DARIEN MCCLENDON MD 12/10/17 1347 Date Darien Mcclendon MD CC: Naun Wilhelm MD; Mat Duffy MD Signed 12 LEAD ELECTROCARDIOGRAM Observed: 12/10/2017 Status: F Source: VAUGHN 1:24 PM [facility] REPOSITORY [facility] Cardiovascular Services [address] [place] [address] 12 Lead EKG 12/03/17 0349 MR#: [id number] Acct: [id number] Name: MICHAEL GARCIA Rep #: [id number] : 1945 72 From: Darien Mcclendon MD Attending Dr: Irene Wilson MD Status: DIS IN Ordering Dr: Jeevan Machado MD Date: 12/05/17 Location: [facility] Sex: F C Admitted: 11/27/17 Test Reason [...] IS UNCONFIRMED Confirmed by DANELLE LOONEY, DARIEN ([id number]), technical writer and editor HONORIO SHEFFIELD ([id number]) on 12/10/2017 1:24:32 PM Referred By: DR ALVARADO Confirmed By:DARIEN MCCLENDON MD 12/10/17 1324 Date Darien Mcclendon MD CC: Jeevan Machado MD; Mat Duffy MD Signed [facility] Observed: 12/10/2017 Status: COMPLETED Source: [place] 12:00 AM [facility] REPOSITORY Patient Outreach (INTMWS) MICHAEL GARCIA ([id number]) 1945 F BLD Date Time Provider Department 12/10/17 SIMIN AQUINO During your visit today, we recorded the following information about you: Simin Duarte RN 12/12/2017 5:09 PM Signed PRIMARY CARE COORDINATION QUICK NOTE Provider Action/FYI Pt admitted to [facility] this afternoon due to ANDquot;kidney inflammationANDquot; per . Patient identified by name and date . Pt was home but after dialysis, she was sent to [facility] for admission. No notes available yet- will follow for D/C. Simin Villarreal RN Ambulatory Csr Internal Medicine [facility] Allergies As of Date: 12/10/2017 (No Known Allergies) Date Reviewed: 11/14/2017 Reviewed by: Evangelina Mckeon) - Fully Assessed Reason for Visit: Csr Hospital Follow Up [3610] Cmt: [facility] 11/27/17- 12/09/17 Prescriptions as of 12/10/2017 Sig: [...] DISCHARGE SUMMARY Observed: 12/09/2017 Status: F Source: VAUGHN 3:34 PM [facility] REPOSITORY [facility] Medical Records Department [address] [place] [address] Discharge Summary 12/09/17 1511 MR#: [id number] Acct: [id number] Name: MICHAEL GARCIA Rep #: [id number] : 1945 72 From: Irene Wilson MD PCP: Mat Duffy MD Status: ADM IN Y Location: [place] [address] Discharge Date and Diagnosis - Problem List [...] applicable Code Visit Inpatient E AND M: 96105 Disch Hosp 12/09/17 1534 <Electronically signed by Irene Wilson MD> Date Irene Wilson MD Cosigner Signature (if applicable): Date CC: Irene Wilson MD; Mat Duffy MD Signed DISCHARGE INSTRUCTION Observed: 12/09/2017 Status: F Source: CHRISTOPHER 3:11 PM [facility] REPOSITORY [facility] Medical Records Department [address] [place] [address] Instructions for Home/Discharge Instructions 12/09/17 1509 MR#: [id number] Acct: [id number] Name: MICHAEL GARCIA Rep #: [id number] : 1945 72 From: Irene Wilson MD [...] 12/09/2017 Status: F Source: CHRISTOPHER 11:15 AM [facility] REPOSITORY TYPE CODE TESTS RESULT OUT OF REFERENCE UNITS RANGE LAB L501.080 70-110 mg/dL High BEDSIDE GLU 262 Result Comment: MANAGEMENT OF PATIENT CARE PER NURSING PROTOCOL Performed By: #### L501.080 #### [facility] Point of Care [address] [facility] [place], [place] [id number] BEDSIDE GLUCOSE Collected: 12/09/2017 Status: F Source: CHRISTOPHER 6:44 AM [facility] REPOSITORY TYPE CODE TESTS RESULT OUT OF REFERENCE UNITS RANGE LAB L501.080 70-110 mg/dL High BEDSIDE GLU 153 Result Comment: Insulin Given MANAGEMENT OF PATIENT CARE PER NURSING PROTOCOL Performed By: #### L501.080 #### [facility] Point of Care [address] [facility] [address] BASIC METABOLIC Collected: 12/09/2017 Status: F Source: CHRISTOPHER PROFILE (BMP) 5:35 AM [facility] REPOSITORY TYPE CODE TESTS RESULT OUT OF [...] GAP 8 Performed By: #### L500.2500 #### [facility] [address] [place], [place], [id number] BEDSIDE GLUCOSE Collected: 12/08/2017 Status: F Source: CHRISTOPHER 10:18 PM [facility] REPOSITORY TYPE CODE TESTS RESULT OUT OF REFERENCE UNITS RANGE LAB L501.080 70-110 mg/dL High BEDSIDE GLU 238 Result Comment: Insulin Given MANAGEMENT OF PATIENT CARE PER NURSING PROTOCOL Performed By: #### L501.080 #### [facility] Point of Care [address] [place] [address] BEDSIDE GLUCOSE Collected: 12/08/2017 Status: F Source: CHRISTOPHER 5:54 PM [facility] REPOSITORY TYPE CODE TESTS RESULT OUT OF REFERENCE UNITS RANGE LAB L501.080 70-110 mg/dL High BEDSIDE GLU 121 Result Comment: MANAGEMENT OF PATIENT CARE PER NURSING PROTOCOL Performed By: #### L501.080 #### [facility] Point of Care [address] [place] [address] OPERATIVE REPORT Observed: 12/08/2017 Status: F Source: VAUGHN 5:08 PM [facility] REPOSITORY [facility] Medical Records Department [address] [place] [address] Operative Report 12/08/17 1703 MR#: [id number] Acct: [id number] Name: MICHAEL GARCIA Rep #: [id number] : 1945 72 From: Anoop Angeles MD PCP: Mat Duffy MD Status: ADM IN Y Location: [place] [id number] Problem List (1) JORGE (acute kidney injury) Status: Acute Report of Operation Date of Procedure: 12/08/17 Pre-Operative Diagnosis: Acute kidney injury Post-Operative Diagnosis: Same Surgery/Procedure Performed:: Left internal jugular 23 cm pre-curved tunneled palindrome hemodialysis catheter placement. Reference number [id number]. Lot #[id number] Description of Surgical Findings:: Timeout and informed [...] Signed CONSULTATION Observed: 12/08/2017 Status: F Source: VAUGHN 5:03 PM [facility] REPOSITORY [facility] Medical Records Department [address] [place] [address] Consultation 12/08/17 1302 MR#: [id number] Acct: [id number] Name: MICHAEL GARCIA Rep #: [id number] : 1945 72 From: Evangelina Hendricks PA-C PCP: Mat Duffy MD Status: ADM IN Y Location: [place] [id number] ADDENDUM by Anoop Angeles MD on 12/08/17 [...] anesthesia care. Anoop Angeles M.D., [facility]igo.A.C.S. 12/08/17 170 <Electronically signed by Anoop Angeles MD> Date [...] Patient denies being seen previously by a major donor coordinator. Per patient , her PCP would like [...] in 2016. She was transferred to the [facility] for treatment. Dr. West is her [...] 1 VIEW Observed: 12/08/2017 Status: F Source: VAUGHN (PORTABLE) 4:34 PM [facility] REPOSITORY [facility] Imaging Services [address] [place] [address] Chest 1 View (Portable) MR#: [id number] Acct: [id number] Name: MICHAEL GARCIA Rep #: [id number] : 1945 F 72 From: Kvng Yung MD PCP: Mat Duffy MD Status: ADM IN Study: Chest 1 View (Portable) Date of Exam: 12/08/17 Exam# [id number] Ordering Dr: Anoop Angeles MD STUDY: X-RAY [...] CC: Anoop Angeles MD; Mat Duffy MD Orchid Worker: Signed BEDSIDE GLUCOSE Collected: 12/08/2017 Status: F Source: CHRISTOPHER 11:01 AM [facility] REPOSITORY TYPE CODE TESTS RESULT OUT OF REFERENCE UNITS RANGE LAB L501.080 70-110 mg/dL High BEDSIDE GLU 139 Result Comment: MANAGEMENT OF PATIENT CARE PER NURSING PROTOCOL Performed By: #### L501.080 #### [facility] Point of Care [address] [place] [address] BEDSIDE GLUCOSE Collected: 12/08/2017 Status: F Source: CHRISTOPHER 6:59 AM [facility] REPOSITORY TYPE CODE TESTS RESULT OUT OF REFERENCE UNITS RANGE LAB L501.080 70-110 mg/dL High BEDSIDE GLU 163 Result Comment: MANAGEMENT OF PATIENT CARE PER NURSING PROTOCOL Performed By: #### L501.080 #### [facility] Point of Care [address] [place] [address] BASIC METABOLIC Collected: 12/08/2017 Status: F Source: CHRISTOPHER PROFILE (BMP) 5:05 AM [facility] REPOSITORY TYPE CODE TESTS RESULT OUT OF [...] GAP 10 Performed By: #### L500.2500 #### [facility] [address] [place], [place], [id number] PROTHROMBIN TIME W/INR Collected: 12/08/2017 Status: F Source: CHRISTOPHER 5:05 AM [facility] REPOSITORY TYPE CODE TESTS RESULT OUT OF RANGE REFERENCE UNITS LAB L300.4150 11.7-14.9 SECONDS Normal PROTIME 14.0 LAB L300.4200 Normal INR 1.1 Performed By: #### L300.3900, L300.4310 #### [facility] [address] [place], [address] PARTIAL THROMBOPLAST Collected: 12/08/2017 Status: F Source: CHRISTOPHER TIME 5:05 AM [facility] REPOSITORY TYPE CODE TESTS RESULT OUT OF REFERENCE UNITS RANGE LAB L300.4310 24.1-36.2 Seconds High PTT 42.8 Performed By: #### L300.3900, L300.4310 #### [facility] [address] [place], [address] CBC-COMPLETE BLOOD CNT Collected: 12/08/2017 Status: F Source: CHRISTOPHER NO DIFF 5:05 AM [facility] REPOSITORY TYPE CODE TESTS RESULT OUT OF [...] MPV 9.5 Performed By: #### L100.0500 #### [facility] [address] [place], [place], [id number] BEDSIDE GLUCOSE Collected: 12/07/2017 Status: F Source: CHRISTOPHER 8:59 PM [facility] REPOSITORY TYPE CODE TESTS RESULT OUT OF REFERENCE UNITS RANGE LAB L501.080 70-110 mg/dL High BEDSIDE GLU 218 Result Comment: MANAGEMENT OF PATIENT CARE PER NURSING PROTOCOL Performed By: #### L501.080 #### [facility] Point of Care [address] [place], [place] [id number] BEDSIDE GLUCOSE Collected: 12/07/2017 Status: F Source: CHIRSTOPHER 4:44 PM [facility] REPOSITORY TYPE CODE TESTS RESULT OUT OF REFERENCE UNITS RANGE LAB L501.080 70-110 mg/dL High BEDSIDE GLU 204 Result Comment: MANAGEMENT OF PATIENT CARE PER NURSING PROTOCOL Performed By: #### L501.080 #### [facility] Point of Care [address] [place] [address] BEDSIDE GLUCOSE Collected: 12/07/2017 Status: F Source: CHRISTOPHER 11:31 AM [facility] REPOSITORY TYPE CODE TESTS RESULT OUT OF REFERENCE UNITS RANGE LAB L501.080 70-110 mg/dL High BEDSIDE GLU 196 Result Comment: MANAGEMENT OF PATIENT CARE PER NURSING PROTOCOL Performed By: #### L501.080 #### [facility] Point of Care [address] [place], [place] [address] BEDSIDE GLUCOSE Collected: 12/07/2017 Status: F Source: CHRISTOPHER 6:44 AM [facility] REPOSITORY TYPE CODE TESTS RESULT OUT OF REFERENCE UNITS RANGE LAB L501.080 70-110 mg/dL High BEDSIDE GLU 115 Result Comment: MANAGEMENT OF PATIENT CARE PER NURSING PROTOCOL Performed By: #### L501.080 #### [facility] Point of Care [address] [place] [address] CBC-COMPLETE BLOOD CNT Collected: 12/07/2017 Status: F Source: CHRISTOPHER NO DIFF 5:14 AM [facility] REPOSITORY TYPE CODE TESTS RESULT OUT OF [...] MPV 9.4 Performed By: #### L100.0500 #### [facility] [address] [place], [place], [id number] BASIC METABOLIC Collected: 12/07/2017 Status: F Source: CHRISTOPHER PROFILE (BMP) 5:14 AM [facility] REPOSITORY TYPE CODE TESTS RESULT OUT OF [...] 11 Performed By: #### L500.2500, L501.5200 #### [facility] [address] [facility] [place], [place], [id number] MAGNESIUM Collected: 12/07/2017 Status: F Source: CHRISTOPHER 5:14 AM [facility] REPOSITORY TYPE CODE TESTS RESULT OUT OF RANGE REFERENCE UNITS LAB L501.5200 1.6-2.6 mg/dL Normal MG 2.2 Result Comment: Please note revised Magnesium reference range effective 2017. Performed By: #### L500.2500, L501.5200 #### [facility] [address] [facility] [place], [place], [id number] BEDSIDE GLUCOSE Collected: 12/06/2017 Status: F Source: CHRISTOPHER 8:45 PM [facility] REPOSITORY TYPE CODE TESTS RESULT OUT OF REFERENCE UNITS RANGE LAB L501.080 70-110 mg/dL High BEDSIDE GLU 175 Result Comment: MANAGEMENT OF PATIENT CARE PER NURSING PROTOCOL Performed By: #### L501.080 #### [facility] Point of Care [address] [place] [address] BEDSIDE GLUCOSE Collected: 12/06/2017 Status: F Source: CHRISTOPHER 4:48 PM [facility] REPOSITORY TYPE CODE TESTS RESULT OUT OF REFERENCE UNITS RANGE LAB L501.080 70-110 mg/dL High BEDSIDE GLU 231 Result Comment: MANAGEMENT OF PATIENT CARE PER NURSING PROTOCOL Performed By: #### L501.080 #### [facility] Point of Care [address] [place] [address] BEDSIDE GLUCOSE Collected: 12/06/2017 Status: F Source: CHRISTOPHER 11:31 AM [facility] REPOSITORY TYPE CODE TESTS RESULT OUT OF REFERENCE UNITS RANGE LAB L501.080 70-110 mg/dL High BEDSIDE GLU 240 Result Comment: MANAGEMENT OF PATIENT CARE PER NURSING PROTOCOL Performed By: #### L501.080 #### [facility] Point of Care [address] [facility] [place], [place] [address] CBC-COMPLETE BLOOD CNT Collected: 12/06/2017 Status: F Source: CHRISTOPHER NO DIFF 11:00 AM [facility] REPOSITORY TYPE CODE TESTS RESULT OUT OF [...] MPV 8.9 Performed By: #### L100.0500 #### [facility] [address] [place], [address] BASIC METABOLIC Collected: 12/06/2017 Status: F Source: CHRISTOPHER PROFILE (BMP) 11:00 AM [facility] REPOSITORY TYPE CODE TESTS RESULT OUT OF [...] 9 Performed By: #### L500.2500, L501.5200 #### [facility] [address] [place], [address] MAGNESIUM Collected: 12/06/2017 Status: F Source: CHRISTOPHER 11:00 AM [facility] REPOSITORY TYPE CODE TESTS RESULT OUT OF RANGE REFERENCE UNITS LAB L501.5200 1.6-2.6 mg/dL Normal MG 2.1 Result Comment: Please note revised Magnesium reference range effective 2017. Performed By: #### L500.2500, L501.5200 #### [facility] [address] [place], [address] BEDSIDE GLUCOSE Collected: 12/06/2017 Status: F Source: CHRISTOPHER 6:53 AM [facility] REPOSITORY TYPE CODE TESTS RESULT OUT OF RANGE REFERENCE UNITS LAB L501.080 70-110 mg/dL Normal BEDSIDE GLU 101 Result Comment: MANAGEMENT OF PATIENT CARE PER NURSING PROTOCOL Performed By: #### L501.080 #### [facility] Point of Care [address] [place] [address] BEDSIDE GLUCOSE Collected: 12/05/2017 Status: F Source: CHRISTOPHER 9:35 PM [facility] REPOSITORY TYPE CODE TESTS RESULT OUT OF REFERENCE UNITS RANGE LAB L501.080 70-110 mg/dL High BEDSIDE GLU 164 Result Comment: MANAGEMENT OF PATIENT CARE PER NURSING PROTOCOL Performed By: #### L501.080 #### [facility] Point of Care [address] [place] [address] BEDSIDE GLUCOSE Collected: 12/05/2017 Status: F Source: CHRISTOPHER 6:24 PM [facility] REPOSITORY TYPE CODE TESTS RESULT OUT OF REFERENCE UNITS RANGE LAB L501.080 70-110 mg/dL High BEDSIDE GLU 145 Result Comment: MANAGEMENT OF PATIENT CARE PER NURSING PROTOCOL Performed By: #### L501.080 #### [facility] Point of Care [address] [place] [address] BEDSIDE GLUCOSE Collected: 12/05/2017 Status: F Source: CHRISTOPHER 11:42 AM [facility] REPOSITORY TYPE CODE TESTS RESULT OUT OF REFERENCE UNITS RANGE LAB L501.080 70-110 mg/dL High BEDSIDE GLU 303 Result Comment: MANAGEMENT OF PATIENT CARE PER NURSING PROTOCOL Performed By: #### L501.080 #### [facility] Point of Care [address] [place] [address] BEDSIDE GLUCOSE Collected: 12/05/2017 Status: F Source: CHRISTOPHER 6:39 AM [facility] REPOSITORY TYPE CODE TESTS RESULT OUT OF REFERENCE UNITS RANGE LAB L501.080 70-110 mg/dL High BEDSIDE GLU 156 Result Comment: MANAGEMENT OF PATIENT CARE PER NURSING PROTOCOL Performed By: #### L501.080 #### [facility] Point of Care [address] [place], [place] [address] CBC W/DIFF, AUTOMATED Collected: 12/05/2017 Status: F Source: CHRISTOPHER 5:05 AM [facility] REPOSITORY TYPE CODE TESTS RESULT OUT OF [...] Lymph 0.90 Performed By: #### L100.0100 #### [facility] [address] [place], [address] BASIC METABOLIC Collected: 12/05/2017 Status: F Source: CHRISTOPHER PROFILE (BMP) 5:05 AM [facility] REPOSITORY TYPE CODE TESTS RESULT OUT OF [...] GAP 9 Performed By: #### L500.2500 #### [facility] [address] [place], [place], [address] BEDSIDE GLUCOSE Collected: 12/04/2017 Status: F Source: CHRISTOPHER 10:00 PM [facility] REPOSITORY TYPE CODE TESTS RESULT OUT OF REFERENCE UNITS RANGE LAB L501.080 70-110 mg/dL High BEDSIDE GLU 264 Result Comment: MANAGEMENT OF PATIENT CARE PER NURSING PROTOCOL Performed By: #### L501.080 #### [facility] Point of Care [address] [place], [place] [address] BEDSIDE GLUCOSE Collected: 12/04/2017 Status: F Source: CHRISTOPHER 4:33 PM [facility] REPOSITORY TYPE CODE TESTS RESULT OUT OF REFERENCE UNITS RANGE LAB L501.080 70-110 mg/dL High BEDSIDE GLU 198 Result Comment: MANAGEMENT OF PATIENT CARE PER NURSING PROTOCOL Performed By: #### L501.080 #### [facility] Point of Care [address] [place] [address] BEDSIDE GLUCOSE Collected: 12/04/2017 Status: F Source: CHRISTOPHER 11:17 AM [facility] REPOSITORY TYPE CODE TESTS RESULT OUT OF REFERENCE UNITS RANGE LAB L501.080 70-110 mg/dL High BEDSIDE GLU 220 Result Comment: MANAGEMENT OF PATIENT CARE PER NURSING PROTOCOL Performed By: #### L501.080 #### [facility] Point of Care [address] [place] [address] BEDSIDE GLUCOSE Collected: 12/04/2017 Status: F Source: CHRISTOPHER 6:38 AM [facility] REPOSITORY TYPE CODE TESTS RESULT OUT OF REFERENCE UNITS RANGE LAB L501.080 70-110 mg/dL High BEDSIDE GLU 132 Result Comment: MANAGEMENT OF PATIENT CARE PER NURSING PROTOCOL Performed By: #### L501.080 #### [facility] Point of Care [address] [place] [address] BASIC METABOLIC Collected: 12/04/2017 Status: F Source: CHRISTOPHER PROFILE (BMP) 5:35 AM [facility] REPOSITORY TYPE CODE TESTS RESULT OUT OF [...] GAP 7 Performed By: #### L500.2500 #### [facility] [address] [place], [address] BEDSIDE GLUCOSE Collected: 12/03/2017 Status: F Source: VAUGHN 9:45 PM [facility] REPOSITORY TYPE CODE TESTS RESULT OUT OF REFERENCE UNITS RANGE LAB L501.080 70-110 mg/dL High BEDSIDE GLU 165 Result Comment: MANAGEMENT OF PATIENT CARE PER NURSING PROTOCOL Performed By: #### L501.080 #### [facility] Point of Care [address] [facility] [place] [address] BEDSIDE GLUCOSE Collected: 12/03/2017 Status: F Source: VAUGHN 5:17 PM [facility] REPOSITORY TYPE CODE TESTS RESULT OUT OF REFERENCE UNITS RANGE LAB L501.080 70-110 mg/dL High BEDSIDE GLU 140 Result Comment: MANAGEMENT OF PATIENT CARE PER NURSING PROTOCOL Performed By: #### L501.080 #### [facility] Point of Care [address] [place] [address] OT D/C SUMMARY Observed: 12/03/2017 Status: F Source: VAUGHN 4:38 PM [facility] REPOSITORY [facility] 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 Thank you for the referral of this patient. Sincerely, Norbert Burks, OTR/L, CHT <Electronically signed by Norbert Burks OTR/L, CHT> 12/03/17 1638 CC: Severiano Kumar MD; Mat Duffy MD MK Signed HEPATITIS B SURFACE Collected: 12/03/2017 Status: F Source: CHRISTOPHER AG 3:35 PM [facility] REPOSITORY TYPE CODE TESTS RESULT OUT OF RANGE REFERENCE UNITS LAB L3100.0400 Negative Normal HB Negative SURF AG Performed By: #### L3100.0390, L3100.0460, L3100.0480 #### [facility] (refer to report for specific site) refer to report for address and phone number HEPATITIS B CORE AB Collected: 12/03/2017 Status: F Source: CHRISTOPHER TOTAL 3:35 PM [facility] REPOSITORY TYPE CODE TESTS RESULT OUT OF RANGE REFERENCE UNITS LAB L3100.0460 Negative Normal HEP B Negative CORE,TOT Result Comment: Performed at: [facility] [id number] Certified Master Safe Technician: Ayad Joy PhD, Phone: [phone] Performed By: #### L3100.0390, L3100.0460, L3100.0480 #### [facility] (refer to report for specific site) refer to report for address and phone number HEPATITIS BE AB Collected: 12/03/2017 Status: F Source: CHRISTOPHER 3:35 PM [facility] REPOSITORY TYPE CODE TESTS RESULT OUT OF RANGE REFERENCE UNITS LAB L3100.0480 Negative Normal HEP Negative Be Ab 6635 Performed By: #### L3100.0390, L3100.0460, L3100.0480 #### [facility] (refer to report for specific site) refer to report for address and phone number SHANDRA + PROTEIN ELECT, Collected: 12/03/2017 Status: F Source: CHRISTOPHER SERUM 3:35 PM [facility] REPOSITORY TYPE CODE TESTS RESULT OUT OF RANGE REFERENCE UNITS LAB L3100.3500 6.0-8.5 g/dL Normal PROTEIN,TOTAL 6.9 LAB L3200.4748 523-1038 mg/dL Normal IMMUNO G 1239 LAB L3200.1400 87-352 mg/dL High IMMUNO A 482 LAB L3200.1500 26-217 mg/dL High IMMUNOGL M 427 LAB L3200.1510 2.9-4.4 g/dL Normal ALBUMIN 2.9 LAB L3200.1520 0.0-0.4 g/dL Normal TGGVE-8-DXYO 0.4 LAB L3200.1530 0.4-1.0 g/dL High FJWXC-5-RHRW 1.1 LAB L3200.1540 0.7-1.3 g/dL Normal BETA [...] scan will follow via computer, mail, or icu tech delivery. Performed By: #### L3100.3425, L3100.3450, L3300.1200, L3410.0300 #### [facility] (refer to report for specific site) refer to report for address and phone number PROTEIN ELECTROPH, S Collected: 12/03/2017 Status: F Source: CHRISTOPHER 3:35 PM [facility] REPOSITORY TYPE CODE TESTS RESULT OUT OF [...] scan will follow via computer, mail, or icu tech delivery. LAB L3100.4340 . Normal NOTE: Comment [...] 12/03/2017 Status: F Source: CHRISTOPHER 3:35 PM [facility] REPOSITORY TYPE CODE TESTS RESULT OUT OF [...] up testing of positive sera with both IN- 3 and MPO-ANCA enzyme immunoassays. As many [...] F Source: CHRISTOPHER IGG, AB 3:35 PM [facility] REPOSITORY TYPE CODE TESTS RESULT OUT OF RANGE REFERENCE UNITS LAB L3410.0300 0-19 EU High SS AB 242 [id number] Result Comment: Negative: <20 Borderline: 20 - 25 Positive: >25 Performed at: [address] [id number] Certified Master Safe Technician: Ayad Joy PhD, Phone: [phone] Performed at: - [facility] [id number] Certified Master Safe Technician: Chris Simeon MD, Phone: [phone] Performed By: #### L3100.2393, L3100.0430, L3300.1200, L3410.0300 #### [facility] (refer to report for specific site) refer to report for address and phone number 12 LEAD ELECTROCARDIOGRAM Observed: 12/03/2017 Status: F Source: CHRISTOPHER 2:42 PM [facility] REPOSITORY [facility] Cardiovascular Services [address] [place] [address] 12 Lead EKG 11/29/17 1045 MR#: [id number] Acct: [id number] Name: MICHAEL GARCIA Rep #: [id number] : 1945 72 From: Darien Mcclendon MD Attending Dr: Jeevan Machado MD Status: ADM IN Ordering Dr: Fahad Sesay MD Date: 12/03/17 Location: [facility] Sex: F C Admitted: 11/27/17 Test Reason [...] UNCONFIRMED Confirmed by DARIEN MCCLENDON MD ([id number]), technical writer and editor HONORIO SHEFFIELD (56) on 12/03/2017 2:42:19 PM Referred By: JACK Confirmed By:DARIEN MCCLENDON MD 12/03/17 1442 Date Darien Mcclendon MD CC: Fahad Sesay; Mat Duffy MD Signed OPERATIVE REPORT Observed: 12/03/2017 Status: F Source: CHRISTOPHER 11:43 AM [facility] REPOSITORY [facility] Medical Records Department [address] [place] [address] Operative Report 12/03/17 1134 MR#: [id number] Acct: [id number] Name: MICHAEL GARCIA Rep #: [id number] : 1945 72 From: Josi JENSEN PCP: Mat Duffy MD Status: ADM IN Y Location: [place] [address] Problem List (1) JORGE (acute kidney injury) [...] the absence of pneumothorax. Code Visit Procedures: 06507 Insert Non-tunnel CV Cath 12/03/17 1143 <Electronically signed by Josi JENSEN> Date Josi JENSEN CC: Nidia Jones MD; Rocael Valencia MD; Josi Hickman; Ortiz Markham MD; Matilde Hayward MD; Mat Duffy MD Signed BEDSIDE GLUCOSE Collected: 12/03/2017 Status: F Source: CHRISTOPHER 11:43 AM [facility] REPOSITORY TYPE CODE TESTS RESULT OUT OF REFERENCE UNITS RANGE LAB L501.080 70-110 mg/dL High BEDSIDE GLU 265 Result Comment: MANAGEMENT OF PATIENT CARE PER NURSING PROTOCOL Performed By: #### L501.080 #### [facility] Point of Care [address] [place] [address] CHEST 1 VIEW Observed: 12/03/2017 Status: F Source: CHRISTOPHER (PORTABLE) 11:29 AM [facility] REPOSITORY [facility] Imaging Services [address] [place] [address] Chest 1 View (Portable) MR#: [id number] Acct: [id number] Name: MICHAEL GARCIA Rep #: [id number] : 1945 F 72 From: Brett Arcos MD PCP: Mat Duffy MD Status: ADM IN Study: Chest 1 View (Portable) Date of Exam: 12/03/17 Exam# [id number] Ordering Dr: Matilde Hayward MD STUDY: X-RAY [...] Brett Arcos MD at 12:44 EST Tel [phone], Service support , CC: Matilde Hayward MD; Mat Duffy MD Orchid Worker: Signed CHEST 1 VIEW Observed: 12/03/2017 Status: F Source: CHRISTOPHER (PORTABLE) 6:57 AM [facility] REPOSITORY [facility] Imaging Services [address] [place] [address] Chest 1 View (Portable) MR#: [id number] Acct: [id number] Name: MICHAEL GARCIA Rep #: [id number] : 1945 F 72 From: Brett Arcos MD PCP: Mat Duffy MD Status: ADM IN Study: Chest 1 View (Portable) Date of Exam: 12/03/17 Exam# [id number] Ordering Dr: Aydin Carroll DO STUDY: X-RAY [...] Brett Arcos MD at 10:25 EST Tel [phone], Service support , CC: Aydin Carroll D.O.; Mat Duffy MD Orchid Worker: Signed BEDSIDE GLUCOSE Collected: 12/03/2017 Status: F Source: VAUGHN 6:55 AM [facility] REPOSITORY TYPE CODE TESTS RESULT OUT OF REFERENCE UNITS RANGE LAB L501.080 70-110 mg/dL High BEDSIDE GLU 144 Result Comment: MANAGEMENT OF PATIENT CARE PER NURSING PROTOCOL Performed By: #### L501.080 #### [facility] Point of Care [address] [place], [place] [address] CBC W/DIFF, AUTOMATED Collected: 12/03/2017 Status: F Source: VAUGHN 5:15 AM [facility] REPOSITORY TYPE CODE TESTS RESULT OUT OF [...] Lymph 1.06 Performed By: #### L100.0100 #### [facility] [address] [facility] [place], [place], [address] BASIC METABOLIC Collected: 12/03/2017 Status: F Source: VAUGHN PROFILE (BMP) 5:15 AM [facility] REPOSITORY TYPE CODE TESTS RESULT OUT OF [...] 9 Performed By: #### L500.2500, L501.5200 #### [facility] [address] [place], [address] MAGNESIUM Collected: 12/03/2017 Status: F Source: CHRISTOPHER 5:15 AM [facility] REPOSITORY TYPE CODE TESTS RESULT OUT OF RANGE REFERENCE UNITS LAB L501.5200 1.6-2.6 mg/dL Normal MG 2.5 Result Comment: Please note revised Magnesium reference range effective 2017. Performed By: #### L500.2500, L501.5200 #### [facility] [address] [place], [address] BEDSIDE GLUCOSE Collected: 12/02/2017 Status: F Source: CHRISTOPHER 9:10 PM [facility] REPOSITORY TYPE CODE TESTS RESULT OUT OF REFERENCE UNITS RANGE LAB L501.080 70-110 mg/dL High BEDSIDE GLU 214 Result Comment: MANAGEMENT OF PATIENT CARE PER NURSING PROTOCOL Performed By: #### L501.080 #### [facility] Point of Care [address] [place] [address] BEDSIDE GLUCOSE Collected: 12/02/2017 Status: F Source: CHRISTOPHER 3:53 PM [facility] REPOSITORY TYPE CODE TESTS RESULT OUT OF REFERENCE UNITS RANGE LAB L501.080 70-110 mg/dL High BEDSIDE GLU 222 Result Comment: MANAGEMENT OF PATIENT CARE PER NURSING PROTOCOL Performed By: #### L501.080 #### [facility] Point of Care [address] [place] [address] 12 LEAD ELECTROCARDIOGRAM Observed: 12/02/2017 Status: F Source: CHRISTOPHER 2:19 PM [facility] REPOSITORY [facility] Cardiovascular Services [address] [place] [address] 12 Lead EKG 11/28/17 0457 MR#: [id number] Acct: [id number] Name: MICHAEL GARCIA Rep #: [id number] : 1945 72 From: Ortiz Markham MD [...] IS UNCONFIRMED Confirmed by ORTIZ MARKHAM ([id number]), technical writer and editor HONORIO SHEFFIELD ([id number]) on 12/02/2017 2:18:52 PM Referred By: Severiano Kumar Confirmed By:ORTIZ MARKHAM 12/02/17 1418 Date Ortiz Markham MD CC: Ortiz Markham MD; Mat Duffy MD Signed 12 LEAD ELECTROCARDIOGRAM Observed: 12/02/2017 Status: F Source: VAUGHN 1:57 PM [facility] REPOSITORY [facility] Cardiovascular Services [address] [place] [address] 12 Lead EKG 11/27/17 0934 MR#: [id number] Acct: [id number] Name: MICHAEL GARCIA Rep #: [id number] : 1945 72 From: Ortiz Markham MD Attending Dr: Jeevan Machado MD Status: ADM IN Ordering Dr: Trevor Hamm MD Date: 11/27/17 Location: [facility] Sex: F C Admitted: 11/27/17 Test Reason [...] COMPARISON REQUIRED, DATA IS UNCONFIRMED Confirmed by ROTIZ MARKHAM ([id number]), technical writer and editor HONORIO SHEFFIELD ([id number]) on 12/02/2017 1:56:29 PM Referred By: Severiano Kumar Confirmed By:ORTIZ MARKHAM 12/02/17 1356 Date Ortiz Markham MD CC: Trevor Hamm MD; Mat Duffy MD Signed BASIC METABOLIC Collected: 12/02/2017 Status: F Source: CHRISTOPHER PROFILE (BMP) 1:55 PM [facility] REPOSITORY TYPE CODE TESTS RESULT OUT OF [...] GAP 8 Performed By: #### L500.2500 #### [facility] [address] [facility], [address] 12 LEAD ELECTROCARDIOGRAM Observed: 12/02/2017 Status: F Source: CHRISTOPHER 1:50 PM [facility] REPOSITORY [facility] Cardiovascular Services [address] [place] [address] 12 Lead EKG 11/27/17 0549 MR#: [id number] Acct: [id number] Name: MICHAEL GARCIA Rep #: [id number] : 1945 72 From: Ortiz Markham MD Attending Dr: Jeevan Machado MD Status: ADM IN Ordering Dr: Reinier Lang MD Date: 11/28/17 Location: [facility] Sex: F C Admitted: 11/27/17 Test Reason : CP Blood Pressure : / mmHG Vent. Rate : 103 BPM Atrial Rate : 103 BPM P-R Int : 130 ms QRS Dur : 080 ms QT Int : 342 ms P-R-T Axes : 046 023 059 degrees QTc Int : 448 ms Sinus tachycardia Otherwise normal ECG Confirmed by ORTIZ MARKHAM ([id number]), technical writer and editor HONORIO SHEFFIELD ([id number]) on 12/02/2017 1:49:59 PM Referred By: Severiano Kumar Confirmed By:ORTIZ MARKHAM 12/02/17 1350 Date Ortiz Markham MD CC: Reinier Lang MD; Mat Duffy MD Signed BEDSIDE GLUCOSE Collected: 12/02/2017 Status: F Source: CHRISTOPHER 11:26 AM [facility] REPOSITORY TYPE CODE TESTS RESULT OUT OF REFERENCE UNITS RANGE LAB L501.080 70-110 mg/dL High BEDSIDE GLU 275 Result Comment: MANAGEMENT OF PATIENT CARE PER NURSING PROTOCOL Performed By: #### L501.080 #### [facility] Point of Care [address] [place], [place] [address] BEDSIDE GLUCOSE Collected: 12/02/2017 Status: F Source: CHRISTOPHER 6:41 AM [facility] REPOSITORY TYPE CODE TESTS RESULT OUT OF REFERENCE UNITS RANGE LAB L501.080 70-110 mg/dL High BEDSIDE GLU 239 Result Comment: MANAGEMENT OF PATIENT CARE PER NURSING PROTOCOL Performed By: #### L501.080 #### [facility] Point of Care [address] [place] [address] CBC-COMPLETE BLOOD CNT Collected: 12/02/2017 Status: F Source: CHRISTOPHER NO DIFF 5:10 AM [facility] REPOSITORY TYPE CODE TESTS RESULT OUT OF [...] MPV 9.1 Performed By: #### L100.0500 #### [facility] [address] [place], [place] [address] [place], [address] BASIC METABOLIC Collected: 12/02/2017 Status: F Source: VAUGHN PROFILE (BMP) 5:10 AM [facility] REPOSITORY TYPE CODE TESTS RESULT OUT OF [...] 9 Performed By: #### L500.2500, L501.5200 #### [facility] [address] [place], [address] MAGNESIUM Collected: 12/02/2017 Status: F Source: CHRISTOPHER 5:10 AM [facility] REPOSITORY TYPE CODE TESTS RESULT OUT OF RANGE REFERENCE UNITS LAB L501.5200 1.6-2.6 mg/dL Normal MG 2.6 Result Comment: Please note revised Magnesium reference range effective 2017. Performed By: #### L500.2500, L501.5200 #### [facility]. [facility] [address] BEDSIDE GLUCOSE Collected: 12/01/2017 Status: F Source: CHRISTOPHER 9:00 PM [facility] REPOSITORY TYPE CODE TESTS RESULT OUT OF REFERENCE UNITS RANGE LAB L501.080 70-110 mg/dL High BEDSIDE GLU 216 Result Comment: MANAGEMENT OF PATIENT CARE PER NURSING PROTOCOL Performed By: #### L501.080 #### [facility] Point of Care [address] [facility] [address] BEDSIDE GLUCOSE Collected: 12/01/2017 Status: F Source: CHRISTOPHER 4:46 PM [facility] REPOSITORY TYPE CODE TESTS RESULT OUT OF REFERENCE UNITS RANGE LAB L501.080 70-110 mg/dL High BEDSIDE GLU 209 Result Comment: MANAGEMENT OF PATIENT CARE PER NURSING PROTOCOL Performed By: #### L501.080 #### [facility] Point of Care [address] [place] [address]. [place] [address] CONSULTATION Observed: 12/01/2017 Status: F Source: CHRISTOPHER 12:35 PM [facility] REPOSITORY [facility] Medical Records Department [address] [place] [address] [place] [address] Consultation 12/01/17 1226 MR#: [id number] Acct: [id number] Name: MICHAEL GARCIA Rep #: [id number] : 1945 72 From: [place] Jenkins MD PCP: Mat Duffy MD Status: ADM IN Y Location: [place] [address] Problem List (1) JORGE (acute kidney injury) [...] Medications Albuterol/Ipratropium (Duoneb) 3 ml INHALATION Q6H.RT [facility] Last Admin: 12/01/17 06:42 Dose: 3 ml Amiodarone HCl (Cordarone) 200 mg PO DAILY [facility] Last Admin: 12/01/17 09:39 Dose: 200 mg Atorvastatin Calcium (Lipitor) 40 mg PO QHS [facility] Last Admin: 11/30/17 22:42 Dose: 40 mg Bisacodyl (Dulcolax) 5 mg PO DAILY PRN PRN PRN Reason: Constipation Clonidine (Catapres) 0.1 mg PO TID [facility] Last Admin: 12/01/17 05:28 Dose: 0.1 mg Dextrose (D50w Syringe) 0 gm IV X1 PRN; Protocol PRN Reason: Hypoglycemia Gabapentin (Neurontin) 300 mg PO QHS [facility] Last Admin: 11/30/17 22:50 Dose: 300 mg Glucagon () 1 mg IM .X1 PRN PRN Reason: Hypoglycemia Guaifenesin (Robitussin) 10 ml PO Q6H PRN PRN PRN Reason: COUGH/CONGESTION Heparin Sodium (Porcine) () 5,000 units SC BID [facility] Last Admin: 12/01/17 09:39 Dose: 5,000 units Piperacillin Sod/Tazobactam Sod (Zosyn) 3.375 gm in 50 mls @ 12.5 mls/hr IV Q8 [facility] Last Admin: 12/01/17 05:26 Dose: 12.5 mls/hr Insulin Aspart (Novolog Flexpen (Bk)) 0 units SC ACHS [facility] PRN Reason: Protocol Last Admin: 12/01/17 11:57 Dose: 2 u Insulin Detemir (Levemir (Bk)) 39 units SC BID [facility] Last Admin: 12/01/17 09:39 Dose: 39 u Levofloxacin (Levaquin) 250 mg PO DAILY@0600 [facility] Last Admin: 12/01/17 05:37 Dose: 250 mg Metoprolol Tartrate (Lopressor (Beta Stephania)) 50 mg PO BID [facility] Last Admin: 12/01/17 09:39 Dose: 50 mg Oxycodone HCl (Oxyir) 5 mg PO Q6H PRN PRN PRN Reason: SEVERE PAIN (6-10/10) Last Admin: 11/29/17 17:58 Dose: 5 mg Pantoprazole Sodium (Protonix) 40 mg PO DAILY [facility] Last Admin: 12/01/17 09:39 Dose: 40 mg Polysaccharide Iron Complex (Ferrex 150) [facility] Last Admin: 12/01/17 09:39 Dose: [...] scan is negative agree with holding amarilis wont be able to give fluids as she is fairly dysneic no acute indications for AIRLINE ATTENDANT today would dose levaquin and other drugs to GFR less than 15 since she is anuric Anemia. s/p PRBC 12/01/17 1235 <Electronically signed by [place] Jenkins MD> Date Trell Jenkins MD Cosigner Signature (if applicable): Date CC: Nidia Jones MD; Rocael Valencia MD; Ortiz Markham MD; Matilde Hayward MD; Mat Duffy MD Signed BEDSIDE GLUCOSE Collected: 12/01/2017 Status: F Source: CHRISTOPHER 11:21 AM [facility] REPOSITORY TYPE CODE TESTS RESULT OUT OF REFERENCE UNITS RANGE LAB L501.080 70-110 mg/dL High BEDSIDE GLU 269 Result Comment: MANAGEMENT OF PATIENT CARE PER NURSING PROTOCOL Performed By: #### L501.080 #### [facility] Point of Care [address] [place] [address] BEDSIDE GLUCOSE Collected: 12/01/2017 Status: F Source: CHRISTOPHER 6:48 AM [facility] REPOSITORY TYPE CODE TESTS RESULT OUT OF REFERENCE UNITS RANGE LAB L501.080 70-110 mg/dL High BEDSIDE GLU 129 Result Comment: MANAGEMENT OF PATIENT CARE PER NURSING PROTOCOL Performed By: #### L501.080 #### [facility] Point of Care [address] [place] [address] BASIC METABOLIC Collected: 12/01/2017 Status: F Source: CHRISTOPHER PROFILE (BMP) 5:05 AM [facility] REPOSITORY TYPE CODE TESTS RESULT OUT OF [...] GAP 7 Performed By: #### L500.2500 #### [facility] [address] [place], [address] CBC W/DIFF, AUTOMATED Collected: 12/01/2017 Status: F Source: CHRISTOPHER 5:05 AM [facility] REPOSITORY TYPE CODE TESTS RESULT OUT OF [...] Lymph 0.92 Performed By: #### L100.0100 #### [facility] [address] [place], [address] CNCO Observed: 12/01/2017 Status: COMPLETED Source: [place] 12:00 AM [facility] REPOSITORY Letter Text Michael Garcia [address] [place] [address] 12/01/2017 [facility] #: [id number] Dear , Due to a change in [...] for you, please contact our office at [phone]. Thank you for choosing the [facility] as your Healthcare Provider . Sincerely, Internal Medicine Appointment Office BEDSIDE GLUCOSE Collected: 11/30/2017 Status: F Source: CHRISTOPHER 10:41 PM [facility] REPOSITORY TYPE CODE TESTS RESULT OUT OF REFERENCE UNITS RANGE LAB L501.080 70-110 mg/dL High BEDSIDE GLU 273 Result Comment: MANAGEMENT OF PATIENT CARE PER NURSING PROTOCOL Performed By: #### L501.080 #### [facility] Point of Care [address] [place] [address] BEDSIDE GLUCOSE Collected: 11/30/2017 Status: F Source: CHRISTOPHER 4:48 PM [facility] REPOSITORY TYPE CODE TESTS RESULT OUT OF REFERENCE UNITS RANGE LAB L501.080 70-110 mg/dL High BEDSIDE GLU 225 Result Comment: MANAGEMENT OF PATIENT CARE PER NURSING PROTOCOL Performed By: #### L501.080 #### [facility] Point of Care [address] [place] [address] BEDSIDE GLUCOSE Collected: 11/30/2017 Status: F Source: CHRISTOPHER 11:45 AM [facility] REPOSITORY TYPE CODE TESTS RESULT OUT OF REFERENCE UNITS RANGE LAB L501.080 70-110 mg/dL High BEDSIDE GLU 211 Result Comment: MANAGEMENT OF PATIENT CARE PER NURSING PROTOCOL Performed By: #### L501.080 #### [facility] Point of Care [address] [place] [address] ABDOMEN/PELVIS WITHOUT Observed: 11/30/2017 Status: F Source: CHRISTOPHER CONT 7:43 AM [facility] REPOSITORY [facility] Imaging Services [address] [place] [address] Abdomen/Pelvis without Cont MR#: [id number] Acct: [id number] Name: MICHAEL GARCIA Rep #: [id number] : 1945 F 72 From: Javad Jalloh MD PCP: Mat Duffy MD Status: ADM IN Study: Abdomen/Pelvis without Cont Date of Exam: 11/30/17 Exam# [id number] Ordering Dr: Fahad Sesay MD STUDY: CT [...] , CC: Fahad Sesay; Mat Duffy MD Orchid Worker: Signed BEDSIDE GLUCOSE Collected: 11/30/2017 Status: F Source: VAUGHN 6:53 AM [facility] REPOSITORY TYPE CODE TESTS RESULT OUT OF RANGE REFERENCE UNITS LAB L501.080 70-110 mg/dL Normal BEDSIDE GLU 98 Result Comment: MANAGEMENT OF PATIENT CARE PER NURSING PROTOCOL Performed By: #### L501.080 #### [facility] Point of Care [facility] [place] [address] BASIC METABOLIC Collected: 11/30/2017 Status: F Source: CHRISTOPHER PROFILE (BMP) 5:22 AM [facility] REPOSITORY TYPE CODE TESTS RESULT OUT OF [...] GAP 9 Performed By: #### L500.2500 #### [facility] [address] [place], [place], [address] CBC W/DIFF, AUTOMATED Collected: 11/30/2017 Status: F Source: CHRISTOPHER 5:22 AM [facility] REPOSITORY TYPE CODE TESTS RESULT OUT OF [...] Lymph 1.14 Performed By: #### L100.0100 #### [facility] [address] [place], [address] BEDSIDE GLUCOSE Collected: 11/29/2017 Status: F Source: VAUGHN 10:45 PM [facility] REPOSITORY TYPE CODE TESTS RESULT OUT OF REFERENCE UNITS RANGE LAB L501.080 70-110 mg/dL High BEDSIDE GLU 257 Result Comment: MANAGEMENT OF PATIENT CARE PER NURSING PROTOCOL Performed By: #### L501.080 #### [facility] Point of Care [address] [place] [address] BEDSIDE GLUCOSE Collected: 11/29/2017 Status: F Source: VAUGHN 4:25 PM [facility] REPOSITORY TYPE CODE TESTS RESULT OUT OF REFERENCE UNITS RANGE LAB L501.080 70-110 mg/dL High BEDSIDE GLU 136 Result Comment: MANAGEMENT OF PATIENT CARE PER NURSING PROTOCOL Performed By: #### L501.080 #### [facility] Point of Care [address] [place] [address] BEDSIDE GLUCOSE Collected: 11/29/2017 Status: F Source: VAUGHN 10:54 AM [facility] REPOSITORY TYPE CODE TESTS RESULT OUT OF REFERENCE UNITS RANGE LAB L501.080 70-110 mg/dL High BEDSIDE GLU 177 Result Comment: MANAGEMENT OF PATIENT CARE PER NURSING PROTOCOL Performed By: #### L501.080 #### [facility] Point of Care [address] [place] [address] TYPE AND SCREEN Collected: 11/29/2017 Status: F Source: CHRISTOPHER 8:10 AM [facility] REPOSITORY Order Comment: CMV NEG? N Number [...] NEGATIVE Screen Performed By: #### B101.7450 #### [facility] [address] [place] [address], [address] RC Collected: 11/29/2017 Status: F Source: CHRISTOPHER 8:10 AM [facility] REPOSITORY TYPE CODE TESTS RESULT OUT OF REFERENCE UNITS RANGE LAB U100.0000 [id number] TRANSFUSED PRODUCT: T AND S with Crossmatch, Red Cells COUNT: 1 Performed By: #### U100.0000 #### [facility] - refer to report for specific site RC Collected: 11/29/2017 Status: F Source: CHRISTOPHER 8:10 AM [facility] REPOSITORY TYPE CODE TESTS RESULT OUT OF REFERENCE UNITS RANGE LAB U100.0000 [id number] TRANSFUSED PRODUCT: T AND S with Crossmatch, Red Cells COUNT: 1 Performed By: #### U100.0000 #### [facility] - refer to report for specific site BEDSIDE GLUCOSE Collected: 11/29/2017 Status: F Source: CHRISTOPHER 7:22 AM [facility] REPOSITORY TYPE CODE TESTS RESULT OUT OF RANGE REFERENCE UNITS LAB L501.080 70-110 mg/dL Normal BEDSIDE GLU 73 Result Comment: MANAGEMENT OF PATIENT CARE PER NURSING PROTOCOL Performed By: #### L501.080 #### [facility] Point of Care [address] [place] [address] BEDSIDE GLUCOSE Collected: 11/29/2017 Status: F Source: CHRISTOPHER 7:01 AM [facility] REPOSITORY TYPE CODE TESTS RESULT OUT OF REFERENCE UNITS RANGE LAB L501.080 70-110 mg/dL Low BEDSIDE GLU 67 Result Comment: MANAGEMENT OF PATIENT CARE PER NURSING PROTOCOL Performed By: #### L501.080 #### [facility] Point of Care [address] [place], [place] [address] BEDSIDE GLUCOSE Collected: 11/29/2017 Status: F Source: CHRISTOPHER 6:40 AM [facility] REPOSITORY TYPE CODE TESTS RESULT OUT OF REFERENCE UNITS RANGE LAB L501.080 70-110 mg/dL Low alert BEDSIDE GLU 33 Result Comment: MANAGEMENT OF PATIENT CARE PER NURSING PROTOCOL Performed By: #### L501.080 #### [facility] Point of Care [address] [place] [address] CBC W/DIFF, AUTOMATED Collected: 11/29/2017 Status: F Source: CHRISTOPHER 5:24 AM [facility] REPOSITORY TYPE CODE TESTS RESULT OUT OF [...] 1.12 Performed By: #### L100.0100, L500.2500 #### [facility] [address] [place], [address] BASIC METABOLIC Collected: 11/29/2017 Status: F Source: VAUGHN PROFILE (BMP) 5:24 AM [facility] REPOSITORY TYPE CODE TESTS RESULT OUT OF RANGE REFERENCE UNITS LAB L501.0100 74-106 mg/dL Low alert GLU 41 Result Comment: Critical Result(s) Called at: 06:58:19 11/29/2017 by: Hermes Rossi to Jose Hadley RN (PCU). Glucose result less than [...] 8 Performed By: #### L100.0100, L500.2500 #### [facility] [address] [facility] [place], [address] BEDSIDE GLUCOSE Collected: 11/28/2017 Status: F Source: CHRISTOPHER 9:23 PM [facility] REPOSITORY TYPE CODE TESTS RESULT OUT OF REFERENCE UNITS RANGE LAB L501.080 70-110 mg/dL High BEDSIDE GLU 246 Result Comment: MANAGEMENT OF PATIENT CARE PER NURSING PROTOCOL Performed By: #### L501.080 #### [facility] Point of Care [address] [place] [address] BEDSIDE GLUCOSE Collected: 11/28/2017 Status: F Source: CHRISTOPHER 5:14 PM [facility] REPOSITORY TYPE CODE TESTS RESULT OUT OF REFERENCE UNITS RANGE LAB L501.080 70-110 mg/dL High BEDSIDE GLU 243 Result Comment: MANAGEMENT OF PATIENT CARE PER NURSING PROTOCOL Performed By: #### L501.080 #### [facility] Point of Care [address] [facility] [place] [address] CHEST WITHOUT Observed: 11/28/2017 Status: F Source: VAUGHN CONTRAST 12:45 PM [facility] REPOSITORY [facility] Imaging Services [address] [place] [address] Chest without Contrast MR#: [id number] Acct: [id number] Name: GARCIAMICHAEL Travis Rep #: [id number] : 1945 F 72 From: Florencia Warren MD PCP: Mat Duffy MD Status: ADM IN Study: Chest without Contrast Date of Exam: 11/28/17 Exam# [id number] Ordering Dr: Viviana Childers VEHICLE REFINISHER-C STUDY: CT CHEST WITHOUT CONTRAST REASON FOR [...] , Service support , CC: Viviana Childers VEHICLE REFINISHER; Mat Duffy MD Orchid Worker: Signed BEDSIDE GLUCOSE Collected: 11/28/2017 Status: F Source: CHRISTOPHER 11:35 AM [facility] REPOSITORY TYPE CODE TESTS RESULT OUT OF REFERENCE UNITS RANGE LAB L501.080 70-110 mg/dL High BEDSIDE GLU 238 Result Comment: MANAGEMENT OF PATIENT CARE PER NURSING PROTOCOL Performed By: #### L501.080 #### [facility] Point of Care [address] [place] [address] BEDSIDE GLUCOSE Collected: 11/28/2017 Status: F Source: CHRISTOPHER 7:46 AM [facility] REPOSITORY TYPE CODE TESTS RESULT OUT OF RANGE REFERENCE UNITS LAB L501.080 70-110 mg/dL Normal BEDSIDE GLU 110 Result Comment: MANAGEMENT OF PATIENT CARE PER NURSING PROTOCOL Performed By: #### L501.080 #### [facility] Point of Care [address] [place] [address] BASIC METABOLIC Collected: 11/28/2017 Status: F Source: CHRISTOPHER PROFILE (BMP) 4:15 AM [facility] REPOSITORY TYPE CODE TESTS RESULT OUT OF [...] GAP 7 Performed By: #### L500.2500 #### [facility] [address] [place], [place], [address] CBC W/DIFF, AUTOMATED Collected: 11/28/2017 Status: F Source: CHRISTOPHER 4:15 AM [facility] REPOSITORY TYPE CODE TESTS RESULT OUT OF [...] Lymph 1.18 Performed By: #### L100.0100 #### [facility] [address] [place], [address] CHEST PA AND LATERAL Observed: 11/28/2017 Status: F Source: CHRISTOPHER 12:00 AM [facility] REPOSITORY [facility] Imaging Services [address] [place] [address] Chest PA and Lateral MR#: [id number] Acct: [id number] Name: MICHAEL GARCIA Rep #: [id number] : 1945 F 72 From: Brett Arcos MD PCP: Mat Duffy MD Status: ADM IN Study: Chest PA and Lateral Date of Exam: 11/28/17 Exam# [id number] Ordering Dr: Rocael Valencia MD STUDY: X-RAY [...] Brett Arcos MD at 9:06 EST Tel [phone], Service support , CC: Rocael Valencia MD; Mat Duffy MD Orchid Worker: Signed BEDSIDE GLUCOSE Collected: 11/27/2017 Status: F Source: CHRISTOPHER 9:54 PM [facility] REPOSITORY TYPE CODE TESTS RESULT OUT OF REFERENCE UNITS RANGE LAB L501.080 70-110 mg/dL High BEDSIDE GLU 195 Result Comment: MANAGEMENT OF PATIENT CARE PER NURSING PROTOCOL Performed By: #### L501.080 #### [facility] Point of Care [address] [place] [address] TROPONIN-I Collected: 11/27/2017 Status: F Source: CHRISTOPHER 7:55 PM [facility] REPOSITORY Order Comment: 'TROP' Serial specimen #1, #2, #3, or #4: 4 TYPE CODE TESTS RESULT OUT OF RANGE REFERENCE UNITS LAB L501.4010 <0.06 ng/mL Normal < 0.02 TROPONIN-I Result Comment: TROPONIN-I EXPECTED VALUES <0.05 NEGATIVE 0.06 - 0.59 AT RISK OF [place] > OR = 0.60 SUGGEST W[place] Performed By: #### L501.4010 #### [facility] [address] [place], [address] BEDSIDE GLUCOSE Collected: 11/27/2017 Status: F Source: CHRISTOPHER 5:36 PM [facility] REPOSITORY TYPE CODE TESTS RESULT OUT OF REFERENCE UNITS RANGE LAB L501.080 70-110 mg/dL High BEDSIDE GLU 209 Result Comment: MANAGEMENT OF PATIENT CARE PER NURSING PROTOCOL Performed By: #### L501.080 #### [facility] Point of Care [address] [place] [address] POTASSIUM Collected: 11/27/2017 Status: F Source: CH[place]STOPHER 4:45 PM [facility] REPOSITORY TYPE CODE TESTS RESULT OUT OF RANGE REFERENCE UNITS LAB L501.5600 3.5-5.1 mmol/L Normal K 4.2 Performed By: #### L501.5600 #### [facility] [address] [place], [address] TROPONIN-I Collected: 11/27/2017 Status: F Source: CHRISTOPHER 4:45 PM [facility] REPOSITORY Order Comment: 'TROP' Serial specimen #1, #2, #3, or #4: 3 TYPE CODE TESTS RESULT OUT OF RANGE REFERENCE UNITS LAB L501.4010 <0.06 ng/mL Normal 0.03 TROPONIN-I Result Comment: TROPONIN-I EXPECTED VALUES <0.05 NEGATIVE 0.06 - 0.59 AT RISK OF [place] > OR = 0.60 SUGGEST [place] Performed By: #### L501.4010 #### [facility] [address] [facility], [address] CONSULTATION Observed: 11/27/2017 Status: F Source: [place]N 4:39 [facility] REPOSITORY [facility] Medical Records Department [address] [place] [address] Consultation 11/27/17 1619 MR#: [id number] Acct: [id number] Name: MICHAEL GARCIA Rep #: [id number] : 1945 72 From: Reinier Lang MD PCP: Mat Duffy MD Status: ADM IN Y Location: ICU [id number] Problem List (1) Paroxysmal A-fib Status: Acute [...] Craniotomy. 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 Valencia. This note was generated with Boursor[employer] Bankation software. It may contain incorrect words, spelling, and punctuation that were not noted in checking the note before signing. 11/27/17 6795 <Electronically signed by Reinier Lang MD> Date Reinier Lang MD Cosigner Signature (if applicable): Date CC: Rocael Valencia MD; Darien Mcclendon MD; Ortiz Markham MD; Mat Duffy MD Signed ECHOCARDIOGRAM COMPLETE Observed: 11/27/2017 Status: F Source: CHRISTOPHER 3:33 PM [facility] REPOSITORY [facility] Cardiovascular Services [address] [place] [address] Echo Complete W/ Contrast 11/27/17 1433 MR#: [id number] Acct: [id number] Name: MICHAEL GARCIA Rep #: [id number] : 1945 72 From: Reinier Lang MD [...] Physician: MAT DUFFY Performed By: Bianca Green, RDCS, RVT 11/27/17 1532 Date Reinier Lang MD CC: Fahad Sesay; Mat Duffy MD Date Dictated: 11/27/17 1433 Date Transcribed: 11/27/17 1532 Orchid Worker: Signed CONSULTATION Observed: 11/27/2017 Status: F Source: VAU[place] 3:27 PM [facility] REPOSITORY [facility] Medical Records Department [address] [place] [address] Consultation 11/27/17 1246 MR#: [id number] Acct: [id number] Name: MICHAEL GARCIA Rep #: [id number] : 1945 72 From: Viviana Childers NP-C PCP: Mat Duffy MD Status: ADM IN Y Location: ICU [id number] ADDENDUM by Rocael Valencia MD on 11/27/17 [...] noted in 2016. Inpatient E AND M: [id number] Init Hosp L3 11/27/17 1527 <Electronically signed by Rocael Valencia MD> Date Rocale Valencia MD cc: Rocael Valencia MD; Ortiz [...] 72 year old F known to pulmonary [facility], with past medical history as below who [...] Craniotomy. 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 This note was generated with Bours[employer] Bankation software. It may contain incorrect words, spelling, and punctuation that were not noted in checking the note before signing. 11/27/17 1408 <Electronically signed by Viviana JENSEN> Date Viviana JENSEN Cosigner Signature (if applicable): Date CC: Rocael Valencia MD; Ortiz Markham MD; Mat Duffy MD Signed BEDSIDE GLUCOSE Collected: 11/27/2017 Status: F Source: CHRISTOPHER 12:12 PM [facility] REPOSITORY TYPE CODE TESTS RESULT OUT OF REFERENCE UNITS RANGE LAB L501.080 70-110 mg/dL High BEDSIDE GLU 194 Result Comment: MANAGEMENT OF PATIENT CARE PER NURSING PROTOCOL Performed By: #### L501.080 #### [facility] Point of Care [address] [place] [address] HISTORY AND PHYSICAL Observed: 11/27/2017 Status: F Source: CHRISTOPHER EXAM 12:01 PM [facility] REPOSITORY [facility] Medical Records Department [address] [place] [address] History and Physical 11/27/17 0904 MR#: [id number] Acct: [id number] Name: MICHAEL GARCIA Rep #: [id number] : 1945 72 From: Fahad Sesay MD PCP: Mat Duffy MD Status: ADM IN Y Location: ICU [id number] Problem List (1) HTN (hypertension) Status: Chronic [...] 3+ bacteria. EKG revealed sinus tachycardia, normal IN interval, normal QRS, no acute ischemic changes [...] Craniotomy. 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 This note was generated with Alorum dictation software. It may contain incorrect words, spelling, and punctuation that were not noted in checking the note before signing. Code Visit Inpatient E AND M: [id number] Init Hosp L3 11/27/17 1201 <Electronically signed by Fahad Sseay MD> Date Fahad Sesay MD Cosigner Signature: Date (if applicable) CC: Fahad Sesay; Mat Duffy MD Signed TROPONIN-I Collected: 11/27/2017 Status: F Source: CHRISTOPHER 9:30 AM [facility] REPOSITORY Order Comment: 'TROP' Serial specimen #1, #2, #3, or #4: 2 TYPE CODE TESTS RESULT OUT OF RANGE REFERENCE UNITS LAB L501.4010 <0.06 ng/mL Normal 0.04 TROPONIN-I Result Comment: TROPONIN-I EXPECTED VALUES <0.05 NEGATIVE 0.06 - 0.59 AT RISK OF [place] > OR = 0.60 SUGGEST W[place] Performed By: #### L501.4010 #### [facility] [address] [place], [address] PROTHROMBIN TIME W/INR Collected: 11/27/2017 Status: F Source: CHRISTOPHER 9:30 AM [facility] REPOSITORY TYPE CODE TESTS RESULT OUT OF RANGE REFERENCE UNITS LAB L300.4150 11.7-14.9 SECONDS High PROTIME 16.0 LAB L300.4200 Normal INR 1.3 Performed By: #### L300.3900, L300.4310 #### [facility] [address] [place], [address] PARTIAL THROMBOPLAST Collected: 11/27/2017 Status: F Source: CHRISTOPHER TIME 9:30 AM [facility] REPOSITORY TYPE CODE TESTS RESULT OUT OF REFERENCE UNITS RANGE LAB L300.4310 24.1-36.2 Seconds High PTT 48.9 Performed By: #### L300.3900, L300.4310 #### [facility] [address] [place], [address] MAGNESIUM Collected: 11/27/2017 Status: F Source: CHRISTOPHER 9:30 AM [facility] REPOSITORY TYPE CODE TESTS RESULT OUT OF RANGE REFERENCE UNITS LAB L501.5200 1.6-2.6 mg/dL Normal MG 2.2 Result Comment: Please note revised Magnesium reference range effective 2017. Performed By: #### L501.5200, L501.9520 #### [facility] [address] [place], [address] THYROID STIM HORMONE Collected: 11/27/2017 Status: F Source: CHRISTOPHER (TSH) 9:30 AM [facility] REPOSITORY TYPE CODE TESTS RESULT OUT OF RANGE REFERENCE UNITS LAB L501.9520 0.358-3.74 uIU/mL Normal TSH 0.56 Performed By: #### L501.5200, L501.9520 #### [facility] [address] [place], [address] LIVER PROFILE Collected: 11/27/2017 Status: F Source: CHRISTOPHER 9:30 AM [facility] REPOSITORY Order Comment: Comments: from blood in [...] 0.12 Performed By: #### L500.3400, L504.2610 #### [facility] [address] [place], [address] LDH Collected: 11/27/2017 Status: F Source: CHRISTOPHER 9:30 AM [facility] REPOSITORY Order Comment: Comments: from blood in lab. TYPE CODE TESTS RESULT OUT OF RANGE REFERENCE UNITS LAB L504.2610 84-246 U/L Normal LDH 221 Performed By: #### L500.3400, L504.2610 #### [facility] [address] [place], [address] CHEST Observed: 11/27/2017 Status: F Source: CHRISTOPHER 9:03 AM [facility] REPOSITORY [facility] Imaging Services [address] [place] [address] Chest MR#: [id number] Acct: [id number] Name: MICHAEL GARCIA Rep #: [id number] : 1945 F 72 From: Brett Arcos MD PCP: Mat Duffy MD Status: ADM IN Study: Chest Date of Exam: 11/27/17 Exam# [id number] Ordering Dr: Fahad Sesay MD STUDY: SUPERFICIAL [...] Brett Arcos MD at 15:18 EST Tel [phone], Service support , CC: Fahad Sesay; Mat Duffy MD Orchid Worker: Signed EMERGENCY DEPARTMENT Observed: 11/27/2017 Status: F Source: [place] SUMMARY 7:53 AM [facility] REPOSITORY [facility] Medical Records Department [address] [place] [address] Emergency Department Summary 11/27/17 0723 MR#: [id number] Acct: [id number] Name: MICHAEL GARCIA Rep #: [id number] : 1945 72 From: Trevor Hamm MD [...] EKG changes This note was generated with Boursorama Bankation software. It may contain incorrect words, spelling, [...] your Primary Care Provider. Call [facility] ([phone]) or report to the closest Emergency Room. Call 911 if necessary. 11/27/17 0753 <Electronically signed by Trevor Hamm MD> Date Trevor Hamm MD Cosigner Signature (If Indicated): Date CC: Mat Duffy MD URINALYSIS, COMPLETE Collected: 11/27/2017 Status: F Source: CHRISTOPHER 6:40 AM [facility] REPOSITORY Order Comment: Microscopic field is filled. Other elements may be obscured. How was Urine Obtained? SALAD COUNTER ATTENDANT TO SPECIFY TYPE CODE TESTS RESULT OUT [...] URINE SEEN Performed By: #### L400.0001 #### [facility] [address] [facility] [place], [place], [address] Observed: 11/27/2017 Status: F Source: CH[place] LEGIONELLA ANTIGEN 6:40 AM [facility] URINE REPOSITORY Legionella, UR Legionella Antigen result interpretation: Negative Presumptive negative for Legionella pneumophila serogroup 1 antigen in urine, suggesting no recent or current infection. Legionella Ag, Urine Negative (See interpretation below) Performed By: #### M300.4500 #### [facility] [place], [address] STREP Observed: 11/27/2017 Status: F Source: CHRISTOPHER PNEUMONIAE ANTIG(UR,CSF) 6:40 AM [facility] REPOSITORY S pneumo Ag URINE INTERPRETATION Negative Urine Presumptive negative for pneumococcal pneumonia, suggesting no current or recent pneumococcal infection. Infection due to S pneumoniae cannot be ruled out since the antigen present in the sample may be below the detection limit of the test. Strep pneumo Test Negative URINE (See interpretation below) Performed By: #### M300.4600 #### [facility] [address] [facility] [place], [place], [address] Observed: 11/27/2017 Status: F Source: CHRISTOPHER CULTURE, URINE 6:40 AM [facility] REPOSITORY Order Date: 11/27/17 Urine Culture ORGANISM 1: Klebsiella pneumoniae sp pneum Almond Count >100,000 Klebsiella pneumoniae sp pneum: REACTION [...] <=20 S (NF) indicates non-formulary drug at [facility]. Approval by Infectious Disease Specialist required before non-formulary drugs may be ordered and/or dispensed. Performed By: #### M100.0650 #### [facility] [address] [place], [place], [address] Observed: 11/27/2017 Status: F Source: VAUGHN CULTURE, BLOOD (WB) 6:35 AM [facility] REPOSITORY BC No growth in 5 days. Performed By: #### M200.1000 #### [facility] [address] [facility] [place], [place], [address] Observed: 11/27/2017 Status: F Source: VAU[place]N INFLUENZA A+B (RAPID 6:19 AM [facility] TARAH) REPOSITORY FLU A/B Rapid Negative test results should be confirmed by culture. Order Rapid Viral Culture for Influenzae A+B (063340) if clinically indicated. Influenza Ag, Direct Presumptive NEGATIVE for Influenza A/B Antigen (See Note) Performed By: #### M101.0101 #### [facility] [address] [place], [place], [address] CHEST 1 VIEW Observed: 11/27/2017 Status: F Source: VAUGHN (PORTABLE) 6:11 AM [facility] REPOSITORY [facility] Imaging Services [address] [place] [address] Chest 1 View (Portable) MR#: [id number] Acct: [id number] Name: MICHAEL GARCIA Rep #: [id number] : 1945 F 72 From: Selina Pickard MD PCP: Mat Duffy MD Status: REG ER Study: Chest 1 View (Portable) Date of Exam: 11/27/17 Exam# [id number] Ordering Dr: Trevor Hamm MD STUDY: X-RAY [...] CC: Trevor Hamm MD; Mat Duffy MD Orchid Worker: Signed CBC W/DIFF, AUTOMATED Collected: 11/27/2017 Status: F Source: CHRISTOPHER 6:05 AM [facility] REPOSITORY TYPE CODE TESTS RESULT OUT OF [...] Lymph 0.75 Performed By: #### L100.0100 #### [facility] [address] [facility] [place], [place], [address] LACTIC ACID Collected: 11/27/2017 Status: F Source: CHRISTOPHER 6:05 AM [facility] REPOSITORY Order Comment: Yes/No query for Sepsis Lactate Rule Y TYPE CODE TESTS RESULT OUT OF RANGE REFERENCE UNITS LAB L503.6005 0.4-2.0 mmol/L Normal LACTIC ACID 1.4 Performed By: #### L503.6005 #### [facility] [address] [place], [address] BASIC METABOLIC Collected: 11/27/2017 Status: F Source: CH[place]STOPHER PROFILE (BMP) 6:05 AM [facility] REPOSITORY Order Comment: 'TROP' Serial specimen #1, [...] 7 Performed By: #### L500.2500, L501.4010 #### [facility] [address] [facility] [place], [place], [address] TROPONIN-I Collected: 11/27/2017 Status: F Source: VAUGHN 6:05 AM [facility] REPOSITORY Order Comment: 'TROP' Serial specimen #1, #2, #3, or #4: 1 TYPE CODE TESTS RESULT OUT OF RANGE REFERENCE UNITS LAB L501.4010 <0.06 ng/mL Normal < 0.02 TROPONIN-I Result Comment: TROPONIN-I EXPECTED VALUES <0.05 NEGATIVE 0.06 - 0.59 AT RISK OF [place] > OR = 0.60 SUGGEST WY Performed By: #### L500.2500, L501.4010 #### [facility] [address] [facility] [place], [place], [address] Observed: 11/27/2017 Status: F Source: [place]N CULTURE, BLOOD (WB) 6:05 AM [facility] REPOSITORY 11/30 GRAM STAIN= GRAM POSITIVE RODS CALLED TO [facility] 11/29/17 AT 2021 BY ALBERTO #1 Gram positive jackson suggestive of a diptheroid. Possible skin contamination, further Identification and sensitivity will be performed only by physician's request. ANAEROBIC BOTTLE NO GROWTH 5 DAYS. ORGANISM 1: Gram positive jackson Amount Growth Growth Performed By: #### M200.1000 #### [facility] [address] [place], [address] PROGRESS Observed: 11/10/2017 Status: COMPLETED Source: [place] 4:08 PM [facility] REPOSITORY HNO ID: [id number] Author: Evangelina Mckeon) Service: (none) Author Type: Physician Electrotherapist Type: Progress Notes Filed: 11/14/2017 5:27 PM [...] Type 2 diabetes mellitus with renal manifestations ([facility]) 01/19/2016 Dr. Romeo, nephrology PAST SURGICAL HISTORY Procedure Laterality Date - ACHILLES TENDON SURGERY HX Right 1995 - BREAST BIOPSY CORE Left 2013 benign - COLONOSCOP W/ OR W/O BRSH SPEC 10/27/2017 Colonoscopy w/bx [facility] - EGD W/O OR W/BRUSH/WASH 10/27/2017 EGD w/bx [facility] - LAPAROSCOPIC CHOLEYCYSTECTOMY Cholecystectomy, lap - REMOVAL [...] activity: No Social History Narrative Moved from [place] 2 years ago. Lives w/ spouse. Does [...] with more than 50% of the total yusl-oh-pvmc time of the visit in counseling / coordination of care. Evangelina Nix PA-C PROGRESS Observed: 11/07/2017 Status: COMPLETED Source: [place] 10:24 AM [facility] REPOSITORY HNO ID: [id number] Author: Bereket Hammer Service: (none) Author Type: Nurse Practitioner Type: Progress Notes Filed: 11/07/2017 12:14 PM Note Text: Michael Garcia a 71 year old female who is returning for follow up regarding iron deficiency anemia. I saw the patient in consultation on 10/15/17. That note has been reviewed. . The patient was seen by Dr. Nielson for upper endoscopy and colonoscopy 10/27/17 at [facility]. The procedure and pathology reports have been [...] OR W/O BRSH SPEC 10/27/2017 Colonoscopy w/bx [facility] - EGD W/O OR W/BRUSH/WASH 10/27/2017 EGD w/bx [facility] - LAPAROSCOPIC CHOLEYCYSTECTOMY Cholecystectomy, lap - REMOVAL [...] to formulate the plan. Bereket Hammer RN ROUGH ROUNDER ALLERGIES ALLERGIES DATE TYPE / CODE NAME / CODE REACTION SEVERITY SOURCE 10/21/2018 Drug No Known Unknown [facility] Allergy/416 Allergies/L56297 Hospital 940824(SNOM 0388(RXNORM) Repository ED CT) Drug NO KNOWN [facility] Class/71883 ALLERGIES [facility] 1003(SNOMED Repository CT) NG/[id number] NO KNOWN [facility] 6(SNOMED ALLERGIES Health [facility] CT) Repository ENCOUNTERS ENCOUNTERS ADMIT/DISCHARGE ACCOUNT NUMBER ADMITTING ENCOUNTER LOCATION SOURCE CLASS 10/28/2018/10/28/19 [id number] Ambulatory BMSBuilding: [place] [address] BMS.[facility] Repository 10/23/2018 [id number] Ambulatory [facility] ding:[facility] Repository 10/22/2018 [id number] Ambulatory [facility] ding:[facility] Repository 10/21/2018 [id number] Ambulatory [facility] ding[facility] Repository 10/21/2018/10/21/19 [id number] Ambulatory BMSBuilding: [place] 19 BMS.[facility] Repository 10/01/2018 [id number] Ambulatory [facility] ding: Repository 09/18/2018 [id number] Ambulatory [facility] ding:LAB Repository 09/09/2018/09/09/20 [id number] Ambulatory BMSBuilding: [place] [address] BMS.[facility] Repository 09/09/2018/09/09/20 [id number] Ambulatory BMSBuilding: [place] [address] BMS.[facility] Repository 09/09/2018/09/09/20 [id number] Ambulatory BMSBuilding: [place] [address] BMS.[facility] Repository 08/10/2018 [id number] [facility] Repository 07/16/2018 [id number] [facility] Repository 07/16/2018 [id number] [facility] Repository 07/03/2018/07/05/20 [id number] Ambulatory [place] [address] Hospital ding:WC Repository 06/24/2018 [id number] [facility]LAB.FUT Repository URE 06/09/2018/06/09/20 [id number] Ambulatory [place] [address] Hospital ding:LAB Repository 06/04/2018/06/04/20 [id number] Ambulatory BMSBuilding: [place] [address] BMS.[facility] Repository 06/03/2018 [id number] [facility]LAB.FUT Repository URE 06/02/2018 [id number] [facility]LAB.[facility] Repository URE 06/01/2018/06/08/20 [id number] Ambulatory [address] Hospital ding:LAB Repository 05/25/2018 [id number] [facility]LAB Repository 05/19/2018/05/19/20 [id number] Ambulatory BMSBuilding: [place] [address] BMS.[facility] Repository 05/19/2018 [id number] Ambulatory BMSBuilding: [place] [facility] Hospital Repository 05/19/2018 [id number] [facility] ding[facility]PSN Repository 05/13/2018/05/13/20 [id number] Ambulatory BMSBuilding: [place] 18 BMS.[facility] Hospital Repository 05/12/2018 [id number] [facility]LAB Repository 05/07/2018 [id number] [facility]LAB Repository 04/28/2018/04/28/20 [id number] Ambulatory BMSBuilding: [place] 18 BMS.[facility] Repository 04/21/2018 [id number] Ambulatory [facility] ding:PSN Repository 04/21/2018 [id number] Ambulatory BMSBuilding: [facility] Repository 04/16/2018 [id number] Ambulatory BMSBuilding: Christopher BMS.[facility] Repository 04/07/2018/04/07/20 [id number] Ambulatory BMSBuilding: [place] 18 BMS.[facility] Repository 04/07/2018/04/07/20 [id number] Ambulatory BMSBuilding: [place] [address] BMS.[facility] Repository 04/02/2018 [id number] Ambulatory BMSBuilding: [place] [facility] Repository 04/02/2018 [id number] Ambulatory BMSBuilding: [place] BMS.CF.[facility] Repository 04/02/2018/04/02/20 [id number] Ambulatory [address] ding:SDC Repository 03/11/2018 [id number] Ambulatory BMSBuilding: [place] BMS.[facility] Repository 03/05/2018/03/06/20 [id number] Ambulatory [address] Repository 03/05/2018/03/05/20 [id number] Ambulatory BMSBuilding: [place] [address] BMS.[facility] Repository 03/01/2018/03/03/20 [id number] Ambulatory BMSBuilding: [address] Repository 03/01/2018/03/03/20 [id number] Ambulatory BMSBuilding: Philip 18 [facility] Repository 03/01/2018/03/03/20 [id number] Ambulatory BMSBuilding: Christopher [address] [place] [address] Repository 03/01/2018 [id number] Jen Rosales Ambulatory BMSBuilding: Philip Penny BMS.[facility] Repository 03/01/2018 [id number] Jen Rosales Ambulatory BMSBuilding: Philip Penny BMS.[facility] Repository 03/01/2018/03/03/20 [id number] Jen Rosales Inpatient Philip Philip 18 [facility] ding:PCURoom Repository : [id number]: 1 02/26/2018 [id number] Ambulatory [facility] ding:CVS Repository 02/26/2018 [id number] Ambulatory BMSBuilding: Philip BMS.CF.[facility] Repository 02/11/2018/02/17/20 [id number] Ambulatory [address] Repository 02/10/2018 [id number] Ambulatory [facility] ding:PSN Repository 01/22/2018/01/23/20 [id number] Ambulatory BMSBuilding: Christopher 18 [facility] Repository 01/19/2018 [id number] [place], Ambulatory BMSBuilding: Philip [facility] Repository 01/19/2018 [id number] [place], Ambulatory BMSBuilding: Christopher Kombian BMS.CF.[facility] Repository 01/19/2018 [id number] [place], Ambulatory BMSBuilding: Philip Kombian BMS.[facility] Repository 01/19/2018 [id number] [place], Ambulatory BMSBuilding: Christopher Kombian BMS.CF.[facility] Repository 01/19/2018 [id number] [place], Ambulatory BMSBuilding: Christopher Kombian BMS.[facility] Repository 01/19/2018 [id number] [place], Ambulatory BMSBuilding: Christopher Kombian BMS.[facility] Repository 01/19/2018 [id number] [place], Ambulatory BMSBuilding: Philip Kombian BMS.CF.[facility] Repository 01/19/2018 [id number] [place], Ambulatory BMSBuilding: Christopher Koian [facility] Repository 01/19/2018 [id number] [place], Ambulatory BMSBuilding: Christopher Kombian BMS.[facility] Repository 01/19/2018 [id number] [place], Ambulatory BMSBuilding: Christopher Kombian BMS.[facility] Repository 01/19/2018/01/23/20 [id number] [place], Inpatient Christopher [address] ding:PCURoom Repository : [id number]: 1 01/08/2018 [id number] Ambulatory [facility] ding:MEDOUTP Repository 01/01/2018/01/02/20 [id number] Ambulatory BMSBuilding: Philip 18 BMS.[facility] Repository 12/23/2017/12/26/19 [id number] Ambulatory [address] Repository 12/22/2017 [id number] Ambulatory [facility] ding:LAB Repository 12/12/2017/12/18/19 [id number] [place]HE[place], Inpatient [place] 18 BIANCA KAYLAH Encounter [facility] Repository 12/12/2017/12/18/19 [id number] LASHELL, Inpatient [facility] 18 [facility] Repository CENTERBuildi nRoom: 8121Bed: 12/12/2017/12/13/19 [id number] Emergency [address] ding:ED Repository 12/05/2017/12/10/19 [id number] Ambulatory BMSBuilding: Christopher 18 [facility] Repository 11/27/2017/12/10/19 [id number] [place], [facility]patient Philip [facility] ding:PCURoom Repository : [id number]: 1 11/27/2017 [id number] [place], Ambulatory BMSBuilding: Christopher Ghasem [facility] Repository 11/27/2017 [id number] [place], Ambulatory BMSBuilding: Philip Ghasem BMS.[facility] Repository 11/27/2017 [id number] [place], Ambulatory BMSBuilding: Philip Ghasem BMS.CF.[facility] Repository 11/27/2017 [id number] [place], Ambulatory BMSBuilding: Christopher Ghasem BMS.[facility] Repository 11/27/2017 [id number] [place], Ambulatory BMSBuilding: Christopher Ghasem BMS.CF.[facility] Repository 11/27/2017 [id number] [place], Ambulatory BMSBuilding: Philip Ghasem BMS.[facility] Repository 11/27/2017/12/10/19 [id number] Ambulatory BMSBuilding: Christopher 18 [facility] Repository 11/27/2017/12/10/19 [id number] Ambulatory BMSBuilding: Christopher 18 [facility] Repository 11/27/2017/12/10/19 [id number] Ambulatory BMSBuilding: Philip 18 [facility] Repository 11/27/2017 [id number] [place], Ambulatory BMSBuilding: Christopher Ghasem BMS.[facility] Repository 11/27/2017 [id number] [place], Ambulatory BMSBuilding: Christopher Ghasem BMS.CF.[facility] Repository 11/27/2017 [id number] [place], Ambulatory BMSBuilding: Philip Ghasem [facility] Repository 11/27/2017 [id number] [place], Ambulatory BMSBuilding: Christopher Ghasem BMS.[facility] Repository 11/27/2017 [id number] [place], Ambulatory BMSBuilding: Christopher Ghasem BMS.CF.[facility] Repository 11/27/2017 [id number] [place], Ambulatory BMSBuilding: Christopher Ghasem BMS.[facility] Repository 11/27/2017 [id number] [place], Ambulatory BMSBuilding: Philip Ghasem BMS.CF.[facility] Repository 11/27/2017 [id number] [place], Ambulatory BMSBuilding: Philip Ghasem BMS.CF.[facility] Repository 11/27/2017 [id number] [place], Ambulatory BMSBuilding: Christopher Ghasem [facility] Repository 11/27/2017 [id number] [place], Ambulatory BMSBuilding: Christopher Ghasem BMS.[facility] Repository 11/27/2017 [id number] [place], Ambulatory BMSBuilding: Christopher Ghasem [facility] Repository 11/27/2017 [id number] [place], Ambulatory BMSBuilding: Christopher Ghasem BMS.CF.[facility] Repository 11/27/2017 [id number] [place], Ambulatory BMSBuilding: Philip Ghasem BMS.[facility] Repository 11/27/2017 [id number] [place], Ambulatory BMSBuilding: Philip Ghasem [facility] Repository 11/27/2017 [id number] [place], Ambulatory BMSBuilding: Philip Ghasem BMS..[facility] Repository 11/27/2017 [id number] [place], Ambulatory BMSBuilding: Philip Ghasem [facility] Repository 11/27/2017 [id number] [place], Ambulatory BMSBuilding: Christopher Ghasem BMS..[facility] Repository 11/27/2017 [id number] [place], Ambulatory BMSBuilding: Christopher Ghasem BMS.[facility] Repository 11/27/2017 [id number] [place], Ambulatory BMSBuilding: Philip Ghasem BMS..[facility] Repository 11/27/2017 [id number] [place], Ambulatory BMSBuilding: Christopher Ghasem BMS.[facility] Repository 11/27/2017 [id number] [place], Ambulatory BMSBuilding: Philip Ghasem BMS..[facility] Repository 11/27/2017 [id number] [place], Ambulatory BMSBuilding: Philip Ghasem BMS..[facility] Repository 11/27/2017 [id number] [place], Ambulatory BMSBuilding: Philip Ghasem [facility] Repository 11/27/2017 [id number] [place], Ambulatory BMSBuilding: Philip Ghasem BMS.[facility] Repository 11/27/2017 [id number] [place], Ambulatory BMSBuilding: Christopher Ghasem BMS..[facility] Repository 11/27/2017 [id number] [place], Ambulatory BMSBuilding: Philip Ghasem BMS.[facility] Repository 11/27/2017 [id number] [place], Ambulatory BMSBuilding: Philip Ghasem [facility] Repository 11/27/2017 [id number] [place], Ambulatory BMSBuilding: Christopher Ghasem BMS.[facility] Repository 11/26/2017/11/26/19 [id number] Ambulatory Christopher Christopher [address] [place] [address] ding:OT Repository 11/07/2017/11/07/19 [id number] Ambulatory [address] Repository 11/07/2017/11/07/19 [id number] Ambulatory [address] Repository PAYERS PAYERS ENCOUNTER GUARANTOR PAYER SUBSCRIBER SOURCE 10/28/2018 MICHAEL Robles Primary MICHAEL Robles Christopher [id number] Insurance:HUMANA MCCORMICKDOB: [facility] [id number] Number: Repository [address]Pte: 850 [id number] [phone] () Date:0105-18-78[address] [address]PC: 10/28/2018 Secondary NOT GIVENUNK Philip Insurance:SELF PAY [facility] Number: Effective Repository Date:2018-10-26 10/23/2018 JEY Walker Primary MICHAEL Robles Christopher [id number] Insurance:HUMANA MCCORMICKDOB: [place] PPOPolicy [id number] Number: Repository [address]Yhx: 850 [id number] [phone] () Date:5221-38-88IN [address] [address]LD: 10/23/2018 Secondary NOT GIVENUNK Christopher Insurance:SELF PAY [facility] Number: Effective Repository Date:2018-10-21 10/22/2018 JEY Walker Primary MICHAEL Robles Philip [id number] Insurance:HUMANA MCCORMICKDOB: [place] PPOPolicy [id number], [place] Number: Repository [address]Jpf: 850 [id number] [phone] () Date:1771-79-14YB[address] [address]LR: 10/22/2018 Secondary NOT GIVENUNK Christopher Insurance:SELF PAY [facility] Number: Effective Repository Date:2018-10-21 10/21/2018 JEY Walker Primary MICHAEL Robles Christopher [id number] Insurance:HUMANA MCCORMICKDOB: [place] PPOPolicy [id number], [place] Number: Repository [address]Byu: (850 [id number] [phone] (HP) Date:5410-98-08RM [address] [address]FL: 10/21/2018 Secondary NOT GIVENUNK Christopher Insurance:SELF PAY [facility] Number: Effective Repository Date:2018-10-21 10/21/2018 MICHAEL Robles Primary MICHAEL Robles Christopher [id number] Insurance:HUMANA MCCORMICKDOB: [place] PPOPolicy [id number], [place] Number: Repository [address]Doh: 850 [id number] [phone] (HP) Date:8878-08-75EA [address] [address]AQ: 10/21/2018 Secondary NOT GIVENUNK Christopher Insurance:SELF PAY [facility] Number: Effective Repository Date:2018-10-20 10/01/2018 JEY Walker Primary MICHAEL Robles Philip [id number] Insurance:HUMANA MCCORMICKDOB: [place] PPOPolicy [id number], [place] Number: Repository [address]Wqs: 850 [id number] [phone] () Date:2636-50-23KB [address] [address]AD: 10/01/2018 Secondary NOT GIVENUNK Philip Insurance:SELF PAY [facility] Number: Effective Repository Date:2018-08-25 09/18/2018 JEY Walker Primary MICHAEL Robles Christopher [id number] Insurance:HUMANA MCCORMICKDOB: [place] PPOPolicy [id number], [place] Number: Repository [address]Bkw: 850 [id number] [phone] () Date:3338-98-34YV [address] [address]QS: 09/18/2018 Secondary NOT GIVENUNK Christopher Insurance:SELF PAY [facility] Number: Effective Repository Date:2018-09-18 09/09/2018 JEY Walker Primary MICHAEL Diehl [id number] Insurance:HUMANA MCCORMICKDOB: [place] PPOPolicy [id number], [place] Number: Repository [address]Aag: 850 [id number] [phone] () Date:1349-11-03ZS [address] [address]SE: 09/09/2018 Secondary NOT GIVENUNK Christopher Insurance:SELF PAY [facility] Number: Effective Repository Date:2018-09-08 09/09/2018 JEY Walker Primary MICHAEL Diehl [id number] Insurance:HUMANA MCCORMICKDOB: [place] PPOPolicy [id number], [place] Number: Repository [address]Ohu: 850 [id number] [phone] () Date:2795-80-65WX [address] [address]WS: 09/09/2018 Secondary NOT GIVENUNK Philip Insurance:SELF PAY [facility] Number: Effective Repository Date:2018-09-09 09/09/2018 JEY Walker Primary MICHAEL Diehl [id number] Insurance:HUMANA MCCORMICKDOB: [place] PPOPolicy [id number], [place] Number: Repository [address]Wfg: (560) [id number] [phone] () Date:5192-74-98EK [address] [address]LE: 09/09/2018 Secondary NOT GIVENUNK Christopher Insurance:SELF PAY [facility] Number: Effective Repository Date:2018-09-02 08/10/2018 JEY Walker Primary MICHAEL Diehl [id number] Insurance:HUMANA MCCORMICKDOB: [place] PPOPolicy [id number], [place] Number: Repository [address]Kry: 850 [id number] [phone] (HP) Date:3036-29-15EP [address] [address]WA: 08/10/2018 Secondary NOT GIVENUNK Philip Insurance:SELF PAY [facility] Number: Effective Repository Date:2018-08-10 07/16/2018 JEY S Primary MICHAEL Robles Christopher [id number] Insurance:HUMANA MCCORMICKDOB: [place] PPOPolicy [id number], [place] Number: Repository [address]Hwn: (850 [id number] [phone] () Date:7960-87-52YZ [address] [address]RT: 07/16/2018 Secondary NOT GIVENUNK Christopher Insurance:SELF PAY [facility] Number: Effective Repository Date:2018-07-08 07/16/2018 JEY S Primary MICHAEL Robles Philip [id number] Insurance:HUMANA MCCORMICKDOB: [place] PPOPolicy [id number], [place] Number: Repository [address]Jbu: (850 [id number] [phone] () Date:6108-09-89LW [address] [address]IH: 07/16/2018 Secondary NOT GIVENUNK Christopher Insurance:SELF PAY [facility] Number: Effective Repository Date:2018-07-06 07/03/2018 JEY S Primary MICHAEL Robles Philip [id number] Insurance:HUMANA MCCORMICKDOB: [place] PPOPolicy [id number], [place] Number: Repository [address]Szp: (850 [id number] [phone] (HP) Date:1096-64-61KP [address] [address]SK: 07/03/2018 Secondary NOT GIVENUNK Philip Insurance:SELF PAY [facility] Effective Repository Date:2018-06-30 06/24/2018 JEY Walker Primary MICHAEL Robles Philip [id number] Insurance:HUMANA MCCORMICKDOB: [place] PPOPolicy [id number], [place] Number: Repository [address]Btm: 850 [id number] [phone] () Date:2306-30-69[place] [address]WP: 06/24/2018 Secondary NOT GIVENUNK Christopher Insurance:SELF PAY [facility] Number: Effective Repository Date:2018-05-25 06/09/2018 JEY Walker Primary MICHAEL Robles Philip [id number] Insurance:HUMANA MCCORMICKDOB: [place] PPOPolicy [id number], [place] Number: Repository [address]Llr: 850 [id number] [phone] () Date:1687-36-02DH [address]4601WP: 06/09/2018 Secondary NOT GIVENUNK Christopher Insurance:SELF PAY [facility] Number: Effective Repository Date:2018-06-09 06/04/2018 JEY Walker Primary MICHAEL Gleasonoster [id number] Insurance:HUMANA MCCORMICKDOB: [place] PPOPolicy [id number], [place] Number: Repository [address]Yvx: 850 [id number] [phone] () Date:3209-24-39HC [address] [address]GE: 06/04/2018 Secondary NOT GIVENUNK Christopher Insurance:SELF PAY [facility] Number: Effective Repository Date:2018-06-04 06/03/2018 JEY Walker Primary MICHAEL Gleasonoster [id number] Insurance:HUMANA MCCORMICKDOB: [place] PPOPolicy [id number], [place] Number: Repository [address]Wge: (220) [id number] [phone] (HP) Date:6530-60-06KL [address] [place] [address]ZS: 06/03/2018 Secondary NOT GIVENUNK Philip Insurance:SELF PAY [facility] Number: Effective Repository Date:2018-06-03 06/02/2018 JEY S Primary MICHAEL Robles Christopher [id number] Insurance:HUMANA MCCORMICKDOB: [place] PPOPolicy [id number], [place] Number: Repository [address]Udf: 850 [id number] [phone] () Date:5844-32-81EI [address] [address]SJ: 06/02/2018 Secondary NOT GIVENUNK Philip Insurance:SELF PAY [facility] Number: Effective Repository Date:2018-05-25 06/01/2018 JEY S Primary MICHAEL Robles Philip [id number] Insurance:HUMANA MCCORMICKDOB: [place] PPOPolicy [id number], [place] Number: Repository [address]Gpk: 850 [id number] [phone] () Date:6029-44-24VS [address] [address]YO: 06/01/2018 Secondary NOT GIVENUNK Philip Insurance:SELF PAY [facility] Number: Effective Repository Date:2018-05-19 05/25/2018 JEY S Primary MICHAEL Gleasonoster [id number] Insurance:HUMANA MCCORMICKDOB: [place] PPOPolicy [id number], [place] Number: Repository [address]Pmr: (064) [id number] [phone] () Date:4999-44-09HG [address] [address]AD: 05/25/2018 Secondary NOT GIVENUNK Philip Insurance:SELF PAY [facility] Number: Effective Repository Date:2018-05-25 05/19/2018 Jey S Primary MICHAEL Robles Philip [id number] Insurance:HUMANA MCCORMICKDOB: [place] PPOPolicy [id number] Number: Repository [address]Tnm: (850 [id number] [phone] (HP) Date:1203-33-29KF [address] [address]QF: 05/19/2018 Secondary NOT GIVENUNK Christopher Insurance:SELF PAY [facility] Number: Effective Repository Date:2018-04-28 05/19/2018 JEY S Primary MICHAEL Robles Philip [id number] Insurance:HUMANA MCCORMICKDOB: [place] PPOPolicy [id number], [place] Number: Repository [address]Czm: (850 [id number] [phone] (HP) Date:2359-49-28MT [address] [address]QK: 05/19/2018 Secondary NOT GIVENUNK Philip Insurance:SELF PAY [facility] Number: Effective Repository Date:2018-05-19 05/19/2018 Jey S Primary MICHAEL Robles Christopher [id number] Insurance:HUMANA MCCORMICKDOB: [place] MED[place]ARE PPOPolicy [id number], [place] Number: Repository [address]Rht: (850 [id number] [phone] (HP) Date:0541-96-12PO [address] [address]XL: 05/19/2018 Secondary NOT GIVENUNK Philip Insurance:SELF PAY [facility] Number: Effective Repository Date:2018-05-13 05/13/2018 Jey S Primary MICHAEL Robles Philip [id number] Insurance:HUMANA MCCORMICKDOB: [place] MED[place]ARE PPOPolicy [id number], [place] Number: Repository [address]Jff: 850 [id number] [phone] (HP) Date:8364-09-28RN [address] [address]CM: 05/13/2018 Secondary NOT GIVENUNK Christopher Insurance:SELF PAY [facility] Number: Effective Repository Date:2018-05-06 05/12/2018 Jey Walker Primary MICHAEL Diehl [id number] Insurance:HUMANA MCCORMICKDOB: [place] MEDICARE PPOPolicy [id number], [place] Number: Repository [address]Wow: 850 [id number] [phone] () Date:1737-47-79WA [address] [address]NH: 05/12/2018 Secondary NOT GIVENUNK Christopher Insurance:SELF PAY [facility] Number: Effective Repository Date:2018-05-12 05/07/2018 Jey Walker Primary MICHAEL Robles Philip [id number] Insurance:HUMANA MCCORMICKDOB: [place] MED[place]ARE PPOPolicy [id number], [place] Number: Repository [address]Flr: 850 [id number] [phone] () Date:9855-33-57BA [address] [address]JR: 05/07/2018 Secondary NOT GIVENUNK Philip Insurance:SELF PAY [facility] Number: Effective Repository Date:2018-05-07 04/28/2018 Jey Walker Primary MICHAEL Robles Philip [id number] Insurance:HUMANA MCCORMICKDOB: [place] MED[place]ARE PPOPolicy [id number] [facility] [place] Number: Repository [address]Son: (630) [id number] [phone] () Date:2430-91-59WM [address] [address]JS: 04/28/2018 Secondary NOT GIVENUNK Philip Insurance:SELF PAY [facility] Number: Effective Repository Date:2018-04-28 04/21/2018 Jey Walker Primary MICHAEL Robles Philip [id number] Insurance:HUMANA MCCORMICKDOB: [place] MED[place] PPOPolicy [id number], [place] Number: Repository [address]Fwk: (850 [id number] [phone] (HP) Date:3618-96-31KJ [address] [address]AC: 04/21/2018 Secondary NOT GIVENUNK Christopher Insurance:SELF PAY [facility] Number: Effective Repository Date:2018-04-14 04/21/2018 Jey S Primary MICHAEL Robles Philip [id number] Insurance:HUMANA MCCORMICKDOB: [place] MED[place] PPOPolicy [id number] [facility] [place] Number: Repository [address]Nhu: 850 [id number] [phone] (HP) Date:8400-57-69LF [address] [address]WF: 04/21/2018 Secondary NOT GIVENUNK Christopher Insurance:SELF PAY [facility] Number: Effective Repository Date:2018-04-21 04/16/2018 Jey S Primary MICHAEL Robles Christopher [id number] Insurance:HUMANA MCCORMICKDOB: [place] MED[place]ARE PPOPolicy [id number] [facility] [place] Number: Repository [address]Nsf: 850 [id number] [phone] () Date:9996-16-68BK [address] [address]LB: 04/16/2018 Secondary NOT GIVENUNK Christopher Insurance:SELF PAY [facility] Number: Effective Repository Date:2018-04-09 04/07/2018 Jey S Primary MICHAEL Robles Philip [id number] Insurance:HUMANA MCCORMICKDOB: [place] MED[place]ARE PPOPolicy [id number] [facility] [place] Number: Repository [address]Bts: 850 [id number] [phone] () Date:4848-21-37IU [address] [address]CS: 04/07/2018 Secondary NOT GIVENUNK Christopher Insurance:SELF PAY [facility] Number: Effective Repository Date:2018-04-07 04/07/2018 Jey Walker Primary MICHAEL Robles Philip [id number] Insurance:HUMANA MCCORMICKDOB: [place] PPOPolicy [id number], [place] Number: Repository [address]Zul: (850 [id number] [phone] (HP) Date:1926-71-23QF [address] [place] [address]YE: 04/07/2018 Secondary NOT GIVENUNK Philip Insurance:SELF PAY [facility] Number: Effective Repository Date:2018-04-06 04/02/2018 Jey S Primary MICHAEL Robles Christopher [id number] Insurance:HUMANA MCCORMICKDOB: [place] MED[place] PPOPolicy [id number], [place] Number: Repository [address]Amn: 850 [id number] [phone] (HP) Date:5034-50-01QA [address] [address]HN: 04/02/2018 Secondary NOT GIVENUNK Christopher Insurance:SELF PAY [facility] Number: Effective Repository Date:2018-04-02 04/02/2018 Jey S Primary MICHAEL Robles Philip [id number] Insurance:HUMANA MCCORMICKDOB: [place] PPOPolicy [id number], [place] Number: Repository [address]Rjd: 850 [id number] [phone] (HP) Date:4847-50-45TI [address] [place] [address]WN: 04/02/2018 Secondary NOT GIVENUNK Christopher Insurance:SELF PAY [facility] Number: Effective Repository Date:2018-04-02 04/02/2018 Jey S Primary MICHAEL Robles Christopher [id number] Insurance:HUMANA MCCORMICKDOB: [place] PPOPolicy [id number], [place] Number: Repository [address]Qnn: 850 [id number] [phone] (HP) Date:5860-39-31VN [address] [place] [address]EN: 04/02/2018 Secondary NOT GIVENUNK Philip Insurance:SELF PAY [facility] Number: Effective Repository Date:2018-03-13 03/11/2018 Jey Walker Primary NOT GIVENUNK Philip [id number] Insurance:[place]LF [place] Number: Effective Repository [address]Gan: 850) Date:2018-02-17 [phone] () 03/05/2018 Jey S Primary MICHAEL Gleasonoster [id number] Insurance:HUMANA MCCORMICKDOB: [place] MED[place]ARE PPOPolicy [id number] [facility] [place] Number: Repository [address]Ghw: [id number] [phone] Date:7276-86-68[address] () [address] [place] [address]YM: 03/05/2018 Secondary NOT GIVENUNK Christopher Insurance:SELF PAY [facility] Number: Effective Repository Date:2018-03-05 03/01/2018 Jey S Primary MICHAEL Robles Philip [id number] Insurance:HUMANA MCCORMICKDOB: [place] MED[place]ARE PPOPolicy [id number], [place] Number: Repository [address]Fbl: 850 [id number] [phone] () Date:7896-16-73UH [address] [place] [address]TF: 03/01/2018 Secondary NOT GIVENUNK Christopher Insurance:SELF PAY [facility] Number: Effective Repository Date:2018-03-01 03/01/2018 Jey S Primary MICHAEL Gleasonoster [id number] Insurance:HUMANA MCCORMICKDOB: [place] MED[place]ARE PPOPolicy [id number] Number: Repository [address]Bqe: [id number] [phone] Date:7010-31-96KH [address] () [address] [place] [address]GH: 03/01/2018 Secondary NOT GIVENUNK Philip Insurance:SELF PAY [facility] Number: Effective Repository Date:2018-03-01 03/01/2018 Jey Walker Primary MICHAEL Diehl [id number] Insurance:HUMANA MCCORMICKDOB: [facility] [place] MEDICARE PPOPolicy [id number] Number: Repository [address]Fai: [id number] [phone] Date:2134-16-45UE [address] () [address] [place] [address]QC: 03/01/2018 Secondary NOT GIVENUNK Christopher Insurance:SELF PAY [facility] Number: Effective Repository Date:2018-03-01 03/01/2018 Jey Walker Primary MICHAEL Robles Philip [id number] Insurance:HUMANA MCCORMICKDOB: [facility] [place] MEDICARE PPOPolicy [id number] Number: Repository [address]Oxd: [id number] [phone] Date:2665-07-96SJ [address] () [address] [place] [address]YD: 03/01/2018 Secondary NOT GIVENUNK Philip Insurance:SELF PAY [facility] Number: Effective Repository Date:2018-03-01 03/01/2018 Jey Walker Primary MICHAEL Robles Philip [id number] Insurance:HUMANA MCCORMICKDOB: [place] MEDICARE PPOPolicy [id number], [place] Number: Repository [address]487Tsq: [id number] [phone] Date:0687-89-11IT [address] () [address] [place] [address]VT: 03/01/2018 Secondary NOT GIVENUNK Christopher Insurance:SELF PAY [facility] Number: Effective Repository Date:2018-03-01 03/01/2018 Jey Walker Primary MICHAEL Robles Philip [id number] Insurance:HUMANA MCCORMICKDOB: [place] MEDICARE PPOPolicy [id number][place] Number: Repository [address]Ycl: [id number] [phone] Date:8505-34-84MW [address] () [address] [place] [address]VY: 03/01/2018 Secondary NOT GIVENUNK Philip Insurance:SELF PAY [facility]: Effective Repository Date:2018-03-01 02/26/2018 Jey Walker Primary MICHAEL Robles Philip [id number] Insurance:HUMANA MCCORMICKDOB: [facility] MEDICARE OPolicy [id number] Number: Repository [address]Bdy: [id number] [phone] Date:8463-70-87IG [address] () [address] [place] [address]EJ: 02/26/2018 Secondary NOT GIVENUNK Christopher Insurance:SELF PAY [facility] Number: Effective Repository Date:2018-02-17 02/26/2018 Jey S Primary MICHAEL Robles Philip [id number] Insurance:HUMANA MCCORMICKDOB: [place] MEDICARE PPOPolicy [id number], [place] Number: Repository [address]Fac: [id number] [phone] Date:8088-06-98MT [address] () [address] [place] [address]OA: 02/26/2018 Secondary NOT GIVENUNK Christopher Insurance:SELF PAY [facility] Number: Effective Repository Date:2018-02-26 02/10/2018 Jey S Primary MICHAEL Robles Christopher [id number] Insurance:HUMANA MCCORMICKDOB: [facility] [id number] Number: Repository [address]Onb: [id number] [phone] Date:9440-61-74TL [address] () [address] [place] [address]LI: 02/10/2018 Secondary NOT GIVENUNK Christopher Insurance:SELF PAY [facility] Effective Repository Date:2018-01-01 01/22/2018 Jey Walker Primary MICHAEL Robles Christopher [id number] Insurance:HUMANA MCCORMICKDOB: [place] MEDICARE PPOPolicy [id number], [place] Number: Repository [address]Wmv: [id number] [phone] Date:6468-15-96ZN [address] () [address] [place] [address]AI: 01/22/2018 Secondary NOT GIVENUNK Philip Insurance:SELF PAY [facility] Number: Effective Repository Date:2018-01-22 01/19/2018 Jey Walker Primary MICHAEL Robles Philip [id number] Insurance:HUMANA MCCORMICKDOB: [facility] [place] MEDICARE PPOPolicy [id number], [place] Number: Repository [address]3227Lkc: [id number] [phone] Date:9547-65-34PH [address] () [address] [place] [address]NU: 01/19/2018 Secondary NOT GIVENUNK Philip Insurance:SELF PAY [facility] Number: Effective Repository Date:2018-01-19 01/19/2018 Jey Walker Primary MICHAEL Robles Christopher [id number] Insurance:HUMANA MCCORMICKDOB: [facility] [place] MEDICARE PPOPolicy [id number] Number: Repository [address]31Cte: [id number] [phone] Date:6624-73-05HG [address] () [address] [place] [address]65[address]GE: 01/19/2018 Secondary NOT GIVENUNK Philip Insurance:SELF PAY [facility] Number: Effective Repository Date:2018-01-19 01/19/2018 Jye Walker Primary MICHAEL Gleasonoster [id number] Insurance:HUMANA MCCORMICKDOB: [facility] [place] MEDICARE PPOPolicy [id number], [place] Number: Repository 27127Kdv: [id number] [phone] Date:5619-09-53KF [address] () [address] [place] [address]CE: 01/19/2018 Secondary NOT GIVENUNK Christopher Insurance:SELF PAY Replaced By [facility] Number: Effective Repository Date:2018-01-19 01/19/2018 Jey Walker Primary MICHAEL Diehl [id number] Insurance:HUMANA MCCORMICKDOB: [facility] MEDICARE OPolicy [id number] Number: Repository 15391Bgb: [id number] [phone] Date:4801-08-31WH [address] () [address] [place] [address]85[address]ZK: 01/19/2018 Secondary NOT GIVENUNK Philip Insurance:SELF PAY [facility] Number: Effective Repository Date:2018-01-19 01/19/2018 Jey S Primary MICHAEL Gleasonoster [id number] Insurance:HUMANA MCCORMICKDOB: [facility] MEDICARE [facility] [id number] Number: Repository [address]Vwl: [id number] [phone] Date:1491-23-98QK [address] () [address] [place] [address]OM: 01/19/2018 Secondary NOT GIVENUNK Philip Insurance:SELF PAY [facility] Number: Effective Repository Date:2018-01-19 01/19/2018 Jey S Primary MICHAEL Diehl [id number] Insurance:HUMANA MCCORMICKDOB: [facility] MEDICARE [facility] [id number] [place] Number: Repository [address]Wdm: [id number] [phone] Date:7885-72-57VJ [address] () [address] [place] [address]DZ: 01/19/2018 Secondary NOT GIVENUNK Christopher Insurance:SELF PAY [facility] Number: Effective Repository Date:2018-01-19 01/19/2018 Jey S Primary MICHAEL Gleasonoster [id number] Insurance:HUMANA MCCORMICKDOB: [facility] [place] MEDICARE PPOPolicy [id number], [place] Number: Repository [address]62Dry: [id number] [phone] Date:7480-61-15NP [address] () [address] [place] [address]WD: 01/19/2018 Secondary NOT GIVENUNK Christopher Insurance:SELF PAY [facility] Number: Effective Repository Date:2018-01-19 01/19/2018 Jey S Primary MICHAEL Robles Christopher [id number] Insurance:HUMANA MCCORMICKDOB: [facility] [place] MEDICARE PPOPolicy [id number] Number: Repository 16199Pmj: [id number] [phone] Date:0549-00-05DW [address] () [address] [place], [place] [id number]: 01/19/2018 Secondary NOT GIVENUNK Christopher Insurance:SELF PAY [facility] Number: Effective Repository Date:2018-01-19 01/19/2018 Jey Walker Primary MICHAEL Robles Christopher [id number] Insurance:HUMANA MCCORMICKDOB: [facility] [place] MEDICARE PPOPolicy [id number] Number: Repository 81250Wbq: [id number] [phone] Date:6376-32-29GI [address] () [address] [place] [address]750[address]NM: 01/19/2018 Secondary NOT GIVENUNK Philip Insurance:SELF PAY [facility] Number: Effective Repository Date:2018-01-19 01/19/2018 Jey S Primary MICHAEL Gleasonoster [id number] Insurance:HUMANA MCCORMICKDOB: [facility] [place] MEDICARE PPOPolicy [id number] Number: Repository 70414Hud: [phone]) [id number] [phone] () Date:3941-30-76CC [address] [place] [address]GJ: 01/19/2018 Secondary NOT GIVENUNK Philip Insurance:SELF PAY [facility] Number: Effective Repository Date:2018-01-19 01/19/2018 Jey Walker Primary MICHAEL Diehl [id number] Insurance:HUMANA MCCORMICKDOB: [facility] [place] MEDICARE PPOPolicy [id number] Number: Repository [address]7935Bep: [id number] [phone] Date:9020-87-44XD [address] () [address] [place] [address]VA: 01/19/2018 Secondary NOT GIVENUNK Christopher Insurance:SELF PAY [facility] Number: Effective Repository Date:2018-01-19 01/08/2018 Jey S Primary MICHAEL Robles Christopher [id number] Insurance:HUMANA MCCORMICKDOB: [facility] [place] MEDICARE PPOPolicy [id number], [place] Number: Repository [address]Tnp: [id number] [phone] Date:3109-32-09UZ [address] () [address] [place] [address]CH: 01/08/2018 Secondary NOT GIVENUNK Philip Insurance:SELF PAY [facility] Number: Effective Repository Date:2018-01-06 01/01/2018 Jey Walker Primary MICHAEL Robles Philip [id number] Insurance:HUMANA MCCORMICKDOB: [facility] [place] MEDICARE PPOPolicy [id number] Number: Repository [address]Mjw: [id number] [phone] Date:3834-32-90SR [address] () [address] [place] [address]99[address]VW: 01/01/2018 Secondary NOT GIVENUNK Philip Insurance:SELF PAY [facility] Number: Effective Repository Date:2017-12-30 12/22/2017 Jey S Primary MICHAEL Robles Philip [id number] Insurance:HUMANA MCCORMICKDOB: [facility] [place] MEDICARE PPOPolicy [id number] Number: Repository 87047Apl: [id number] [phone] Date:4273-44-55WQ [address] () [address] [place] [address]CP: 12/22/2017 Secondary NOT GIVENUNK Philip Insurance:SELF PAY [facility] Number: Effective Repository Date:2017-12-22 12/12/2017 MICHAEL Travis Primary MICHAEL Travis [facility] MCCORMICKDOB: Insurance:HUMANA MCCORMICKDOB: [facility] PPOPolicy [id number] Number: [place] [id number]: (092) Date: [phone] () 12/12/2017 Jey Walker Primary MICHAEL Robles Philip [id number] Insurance:HUMANA MCCORMICKDOB: [facility] [place] MEDICARE PPOPolicy [id number] Number: Repository 79561Lpv: [id number] [phone] Date:4575-04-49HE [address] () [address] [place] [address]GD: 12/12/2017 Secondary NOT GIVENUNK Christopher Insurance:SELF PAY [facility] Number: Effective Repository Date:2017-12-12 12/05/2017 Jey Walker Primary MICHAEL Robles Philip [id number] Insurance:HUMANA MCCORMICKDOB: [facility] [place] MEDICARE PPOPolicy [id number], [place] Number: Repository 47314Fqf: [id number] [phone] Date:9443-45-11YV [address] () [address] [place] [address]LR: 12/05/2017 Secondary NOT GIVENUNK Christopher Insurance:SELF PAY [facility] Number: Effective Repository Date:2017-12-05 11/27/2017 Jey Walker Primary MICHAEL Robles Philip [id number] Insurance:HUMANA MCCORMICKDOB: [facility] [place] MEDICARE PPOPolicy [id number], [place] Number: Repository [address]78Viq: [id number] [phone] Date:0279-25-57JX [address] (HP) [address] [place] [address]23[address]NN: 11/27/2017 Secondary NOT GIVENUNK Christopher Insurance:SELF PAY [facility] Number: Effective Repository Date:2017-11-27 11/27/2017 Jey S Primary MICHAEL Robles Philip [id number] Insurance:HUMANA MCCORMICKDOB: [facility] [place] MEDICARE PPOPolicy [id number], [place] Number: Repository 11147Xuq: [id number] [phone] Date:0407-02-44FC [address] () [address] [place] [address]RJ: 11/27/2017 Secondary NOT GIVENUNK Philip Insurance:SELF PAY [facility] Number: Effective Repository Date:2017-11-27 11/27/2017 Jey S Primary MICHAEL Robles Christopher [id number] Insurance:HUMANA MCCORMICKDOB: [facility] [place] MEDICARE PPOPolicy [id number] Number: Repository [address]105Goq: [id number] [phone] Date:1927-68-28JF [address] () [address] [place] [address]TZ: 11/27/2017 Secondary NOT GIVENUNK Christopher Insurance:SELF PAY [facility] Number: Effective Repository Date:2017-11-27 11/27/2017 Jey S Primary MICHAEL Robles Philip [id number] Insurance:HUMANA MCCORMICKDOB: [facility] [place] MEDICARE PPOPolicy [id number], [place] Number: Repository [address]9469Fdd: [id number] [phone] Date:6676-83-54YN [address] (HP) [address] [place] [address]ZZ: 11/27/2017 Secondary NOT GIVENUNK Christopher Insurance:SELF PAY Replaced By [facility] Number: Effective Repository Date:2017-11-27 11/27/2017 Jey Walker Primary MICHAEL Robles Philip [id number] Insurance:HUMANA MCCORMICKDOB: [facility] [place] MEDICARE PPOPolicy [id number], [place] Number: Repository 33686Low: [id number] [phone] Date:0685-34-76RL [address] () [address] [place] [address]37[address]DK: 11/27/2017 Secondary NOT GIVENUNK Philip Insurance:SELF PAY [facility] Number: Effective Repository Date:2017-11-27 11/27/2017 Jey Walker Primary MICHAEL Robles Philip [id number] Insurance:HUMANA MCCORMICKDOB: [facility] [place] MEDICARE PPOPolicy [id number] Number: Repository [address]1932Sha: [id number] [phone] Date:1415-56-43CU [address] () [address] [place] [address]IF: 11/27/2017 Secondary NOT GIVENUNK Christopher Insurance:SELF PAY [facility] Number: Effective Repository Date:2017-11-27 11/27/2017 Jey Walker Primary MICHAEL Robles Philip [id number] Insurance:HUMANA MCCORMICKDOB: [facility] [place] MEDICARE PPOPolicy [id number] Number: Repository [address]8831Ecw: [id number] [phone] Date:3019-66-52WM [address] () [address] [place] [address]48[address]LF: 11/27/2017 Secondary NOT GIVENUNK Philip Insurance:SELF PAY [facility] Number: Effective Repository Date:2017-11-27 11/27/2017 Jey Walker Primary MICHAEL Robles Christopher [id number] Insurance:HUMANA MCCORMICKDOB: [facility] [place] MEDICARE PPOPolicy [id number], [place] Number: Repository [address]77Uqc: [id number] [phone] Date:8245-17-50DH [address] () [address] [place] [address]WH: 11/27/2017 Secondary NOT GIVENUNK Christopher Insurance:SELF PAY [facility] Number: Effective Repository Date:2017-11-27 11/27/2017 Jey S Primary MICHAEL Robles Philip [id number] Insurance:HUMANA MCCORMICKDOB: [facility] [place] MEDICARE PPOPolicy [id number], [place] Number: Repository 13475Kyj: [id number] [phone] Date:6655-51-93EY [address] () [address] [place] [address]-07[address]IY: 11/27/2017 Secondary NOT GIVENUNK Christopher Insurance:SELF PAY [facility] Number: Effective Repository Date:2017-11-27 11/27/2017 Jey S Primary MICHAEL Robles Philip [id number] Insurance:HUMANA MCCORMICKDOB: [facility] [place] MEDICARE PPOPolicy [id number] Number: Repository [address]307Rso: [id number] [phone] Date:0202-58-36XZ [address] () [address] [place] [address]65[address]UH: 11/27/2017 Secondary NOT GIVENUNK Philip Insurance:SELF PAY [facility] Number: Effective Repository Date:2017-11-27 11/27/2017 Jey S Primary MICHAEL Robles Christopher [id number] Insurance:HUMANA MCCORMICKDOB: [facility] [place] MEDICARE PPOPolicy [id number], [place] Number: Repository [address]9512Zhk: [id number] [phone] Date:7527-47-25ZY [address] () [address] [place] [address]-67[address]PB: 11/27/2017 Secondary NOT GIVENUNK Christopher Insurance:SELF PAY [facility] Number: Effective Repository Date:2017-11-27 11/27/2017 Jey Walker Primary MICHAEL Diehl [id number] Insurance:HUMANA MCCORMICKDOB: [facility] [id number], [place] Number: Repository 16842Lem: [id number] [phone] Date:8726-50-07BB [address] () [address] [place] [address]64[address]EF: 11/27/2017 Secondary NOT GIVENUNK Christopher Insurance:SELF PAY [facility] Number: Effective Repository Date:2017-11-27 11/27/2017 Jey Walker Primary MICHAEL Robles Philip [id number] Insurance:HUMANA MCCORMICKDOB: [facility] [place] MEDICARE PPOPolicy [id number] Number: Repository 30374Zvz: [id number] [phone] Date:5458-47-63GT [address] () [address] [place] [address]30[address]PI: 11/27/2017 Secondary NOT GIVENUNK Philip Insurance:SELF PAY [facility] Number: Effective Repository Date:2017-11-27 11/27/2017 Jey Walker Primary MICHAEL Gleasonoster [id number] Insurance:HUMANA MCCORMICKDOB: [facility] [place] MEDICARE PPOPolicy [id number], [place] Number: Repository 25360Ulr: [id number] [phone] Date:3634-79-00HA [address] () [address] [place] [address]FX: 11/27/2017 Secondary NOT GIVENUNK Philip Insurance:SELF PAY [facility] Number: Effective Repository Date:2017-11-27 11/27/2017 Jey Walker Primary MICHAEL Gleasonoster [id number] Insurance:HUMANA MCCORMICKDOB: [facility] [place] MEDICARE PPOPolicy [id number] Number: Repository [address]297Wdw: [id number] [phone] Date:6702-67-35QA [address] () [address] [place] [address]AX: 11/27/2017 Secondary NOT GIVENUNK Christopher Insurance:SELF PAY [facility] Number: Effective Repository Date:2017-11-27 11/27/2017 Jey Walker Primary MICHAEL Diehl [id number] Insurance:HUMANA MCCORMICKDOB: [facility] MEDICARE OPolicy [id number], [place] Number: Repository [address]696Sky: [id number] [phone] Date:8998-85-18FD [address] () [address] [place] [address]UE: 11/27/2017 Secondary NOT GIVENUNK Philip Insurance:SELF PAY [facility] Number: Effective Repository Date:2017-11-27 11/27/2017 Jey S Primary MICHAEL Diehl [id number] Insurance:HUMANA MCCORMICKDOB: [facility] [place] MEDICARE PPOPolicy [id number] Number: Repository 26862Kds: [id number] [phone] Date:3187-95-23CQ [address] () [address] [place] [address]-82[address]OL: 11/27/2017 Secondary NOT GIVENUNK Philip Insurance:SELF PAY [facility] Number: Effective Repository Date:2017-11-27 11/27/2017 Jey Walker Primary MICHAEL Diehl [id number] Insurance:HUMANA MCCORMICKDOB: [facility] [place] MEDICARE PPOPolicy [id number][place] Number: Repository 34412Xbj: [id number] [phone] Date:0449-58-26MI [address] () [address] [place] [address]5866ZS: 11/27/2017 Secondary NOT GIVENUNK Christopher Insurance:SELF PAY [facility] Number: Effective Repository Date:2017-11-27 11/27/2017 Jey Walker Primary MICHAEL Robles Christopher [id number] Insurance:HUMANA MCCORMICKDOB: [facility] [place] MEDICARE PPOPolicy [id number] Number: Repository 45013Ksu: [id number] [phone] Date:1311-90-29HX [address] () [address] [place] [address]XH: 11/27/2017 Secondary NOT GIVENUNK Christopher Insurance:SELF PAY [facility] Number: Effective Repository Date:2017-11-27 11/27/2017 Jey Walker Primary MICHAEL Robles Philip [id number] Insurance:HUMANA MCCORMICKDOB: [facility] [place] MEDICARE PPOPolicy [id number] Number[place] Repository 78473Adr: [id number] [phone] Date:2956-54-46TS [address] () [address] [place] [address]HJ: 11/27/2017 Secondary NOT GIVENUNK Christopher Insurance:SELF PAY [facility] Number: Effective Repository Date:2017-11-27 11/27/2017 Jey Walker Primary MICHAEL Robles Philip [id number] Insurance:HUMANA MCCORMICKDOB: [facility] [place] MEDICARE PPOPolicy [id number] Number: Repository 23735Spv: [id number] [phone] Date:6473-39-01KN [address] () [address] [place] [address]69[address]QM: 11/27/2017 Secondary NOT GIVENUNK Christopher Insurance:SELF PAY [facility] Number: Effective Repository Date:2017-11-27 11/27/2017 Jey Walker Primary MICHAEL Gleasonoster [id number] Insurance:HUMANA MCCORMICKDOB: [facility] [place] MEDICARE PPOPolicy [id number] Number: Repository 98384Fft: [id number] [phone] Date:1141-75-40KW [address] () [address] [place] [address]22[address]LU: 11/27/2017 Secondary NOT GIVENUNK Philip Insurance:SELF PAY [facility] Number: Effective Repository Date:2017-11-27 11/27/2017 Jey Walker Primary MICHAEL Diehl [id number] Insurance:HUMANA MCCORMICKDOB: [facility] [place] MEDICARE PPOPolicy [id number] Number[place] 18494Bow: [id number] [phone] Date:6422-75-64WW [address] [place] [address]NS: 11/27/2017 Secondary NOT GIVENUNK Christopher Insurance:SELF PAY [facility] Number: Effective Repository Date:2017-11-27 11/27/2017 Jey S Primary MICHAEL Robles Christopher [id number] Insurance:HUMANA MCCORMICKDOB: [facility] [place] MEDICARE PPOPolicy [id number] Number[place] Repository [address]50Fdd: [id number] [phone] Date:8804-82-47VB [address] () [address] [place] [address]KT: 11/27/2017 Secondary NOT GIVENUNK Christopher Insurance:SELF PAY [facility] Number: Effective Repository Date:2017-11-27 11/27/2017 Jey Walker Primary MICHAEL Robles Philip [id number] Insurance:HUMANA MCCORMICKDOB: [facility] [place] MEDICARE PPOPolicy [id number] Number[place]ository 21783Era: [id number] [phone] Date:8351-85-17RH [address] () [address] [place] [address]WE: 11/27/2017 Secondary NOT GIVENUNK Christopher Insurance:SELF PAY [facility] Number: Effective Repository Date:2017-11-27 11/27/2017 Jey S Primary MICHAEL Robles Christopher [id number] Insurance:HUMANA MCCORMICKDOB: [facility] [place] MEDICARE PPOPolicy [id number] Number[place] Repository [address]992Rfr: [id number] [phone] Date:2674-07-26VX [address] (HP) [address] [place] [address]ML: 11/27/2017 Secondary NOT GIVENUNK Philip Insurance:SELF PAY [facility] Number: Effective Repository Date:2017-11-27 11/27/2017 Jey S Primary MICHAEL Robles Christopher [id number] Insurance:HUMANA MCCORMICKDOB: [facility] [place] MEDICARE PPOPolicy [id number] Number[place] Repository [id number]: [id number] [phone] Date:[id number] () [address] [place] [phone]: 11/27/2017 Secondary NOT GIVENUNK Philip Insurance:SELF PAY [facility] Number: Effective Repository Date:2017-11-27 11/27/2017 Jey S Primary MICHAEL Robles Christopher [id number] Insurance:HUMANA MCCORMICKDOB: [place]icy [id number] Number: Repository [id number]: [id number] [phone] Date:0990-49-26CW [address] () [address] [place] [id number]: 11/27/2017 Secondary NOT GIVENUNK Christopher Insurance:SELF PAY [facility] Number: Effective Repository Date:2017-11-27 11/27/2017 Jey S Primary MICHAEL Robles Philip [id number] Insurance:HUMANA MCCORMICKDOB: [id number] Number: Repository [id number]: [id number] [phone] Date:[id number] [address] (HP) [address] [place] [id number]: 11/27/2017 Secondary NOT GIVENUNK Christopher Insurance:SELF PAY [facility] Rep[facility] Date:2017-11-27 11/27/2017 Jey Walker Primary MICHAEL Robles Christopher [id number] Insurance:HUMANA MCCORMICKDOB: [place] MED[place]ARE [place]icy [id number] Number: Repository [address]Bfm: [id number] [phone] Date:8642-50-06[address] () [address] [place] [id number]: 11/27/2017 Secondary NOT GIVENUNK Philip Insurance:SELF PAY [facility] Number: Effective Repository Date:2017-11-27 11/27/2017 Jey Walker Primary MICHAEL Robles Christopher [id number] Insurance:HUMANA MCCORMICKDOB: [place] MEDICARE PPOPolicy [id number] Number: Repository [address]Kzy: [id number] [phone] Date:7015-13-52ZI [address] () [address] [place] [id number]: 11/27/2017 Secondary NOT GIVENUNK Christopher Insurance:SELF PAY [facility] Number: Effective Repository Date:2017-11-27 11/27/2017 Jey Walker Primary MICHAEL Robles Philip [id number] Insurance:HUMANA MCCORMICKDOB: [place] MEDICARE PPOPolicy [id number] Number: Repository [address]Elx: [id number] [phone] Date:1796-67-09JF [address] () [address] [place] [id number]: 11/27/2017 Secondary NOT GIVENUNK Philip Insurance:SELF PAY [facility] Number: Effective Repository Date:2017-11-27 11/27/2017 Jey Walker Primary MICHAEL Robles Philip [id number] Insurance:HUMANA MCCORMICKDOB: [place] MED[place]ARE [place]olicy [id number] Number: Repository [address]Izo: [id number] [phone] Date:6305-75-36MF [address] () [address] [place] [id number]: 11/27/2017 Secondary NOT GIVENUNK Philip Insurance:SELF PAY [facility] Number: Effective Repository Date:2017-11-27 11/27/2017 Jey S Primary MICHAEL Robles Philip [id number] Insurance:HUMANA MCCORMICKDOB: [place] MEDICARE PPOPolicy [id number] Number: Repository [address]Wlz: [id number] [phone] Date:4109-47-90HY [address] () [address] [place] [id number]: 11/27/2017 Secondary NOT GIVENUNK Philip Insurance:SELF PAY [facility] Number: Effective Repository Date:2017-11-27 11/27/2017 Jey S Primary MICHAEL Robles Philip [id number] Insurance:HUMANA MCCORMICKDOB: [place] MEDICARE PPOPolicy [id number] Number: Repository [address]Sdq: [id number] [phone] Date:9432-55-11MO [address] () [address] [place] [id number]: 11/27/2017 Secondary NOT GIVENUNK Philip Insurance:SELF PAY [facility] Number: Effective Repository Date:2017-11-27 11/27/2017 Jey S Primary MICHAEL Robles Christopher [id number] Insurance:HUMANA MCCORMICKDOB: [place] MEDICARE PPOPolicy [id number] Number: Repository [address]Drb: [id number] [phone] Date:9634-12-51BC [address] () [address] [place] [id number]: 11/27/2017 Secondary NOT GIVENUNK Philip Insurance:SELF PAY [facility] Number: Effective Repository Date:2017-11-27 11/27/2017 Jey Walker Primary MICHAEL Diehl [id number] Insurance:HUMANA MCCORMICKDOB: [facility] MEDICARE OPolicy [id number] Number: Repository [address]Ucv: [id number] [phone] Date:6177-65-35OH [address] () [address] [place] [id number]: 11/27/2017 Secondary NOT GIVENUNK Christopher Insurance:SELF PAY [facility] Number: Effective Repository Date:2017-11-27 11/27/2017 Jey Walker Primary MICHAEL Diehl [id number] Insurance:HUMANA MCCORMICKDOB: [facility] MEDICARE [facility] [id number] Number: Repository [address]Ojp: [id number] [phone] Date:8322-37-52ER [address] () [address] [place] [phone]: 11/27/2017 Secondary NOT GIVENUNK Christopher Insurance:SELF PAY [facility] Number: Effective Repository Date:2017-11-27 11/26/2017 Jey Walker Primary MICHAEL Diehl [id number] Insurance:HUMANA MCCORMICKDOB: [place] MEDICARE PPOPolicy [id number] Number: Repository [address]Zey: [id number] [phone] Date:0811-31-82UG [address] () [id number] [place] [phone]: 11/26/2017 Secondary NOT GIVENUNK Christopher Insurance:SELF PAY [facility] Number: Effective Repository Date:2017-10-23
== END ==
PROVIDERS: Family Provider Family Medicine; PCP Internal Medicine; Referring Provider Physician Assistant Medical; Visit Provider Physician Assistant Medical
DX: I50.9 Heart failure, unspecified (principal)
CPT/HCPCS: 96374; 80048; A4216; J1940

== ENCOUNTER → 2018-11-03 10:15 | Outpatient (CLI) | payer MEDICARE, SELFPAY ==
[2018-10-28 09:01] VITALS: BMI 39.6
[2018-11-03 11:38] LABS: Anion Gap 7 (5-15); BUN 69 mg/dL (7-18); BUN/Creat Ratio 26.1 RATIO (10-20); Calcium,Total 8.1 mg/dL (8.5-10.1); Chloride 102 mmol/L (98-107); Creatinine, Serum 2.64 mg/dL (0.55-1.02); EST Glomerular Filtration Rate 19 mL/min (>60); Est Glom Filt Rate - Afr Amer 23 mL/min (>60); Glucose 66 mg/dL (74-106); Potassium 3.9 mmol/L (3.5-5.1); Sodium Level 145 mmol/L (136-145)
== END ==
LOC: LAB 10:16
PROVIDERS: Family Provider Family Medicine; PCP Family Medicine; Referring Provider Physician Assistant Medical; Visit Provider Physician Assistant Medical
DX: I50.33 Acute on chronic diastolic (congestive) heart failure (principal); N18.5 Chronic kidney disease, stage 5
CPT/HCPCS: 36415; 80048

== ENCOUNTER → 2018-11-11 08:50 | Outpatient (CLI) | payer MEDICARE, SELFPAY ==
[2018-10-28 09:01] VITALS: BMI 39.6
[2018-11-11 10:54] LABS: Anion Gap 9 (5-15); BUN 75 mg/dL (7-18); BUN/Creat Ratio 26.8 RATIO (10-20); Calcium,Total 9.2 mg/dL (8.5-10.1); Chloride 102 mmol/L (98-107); EST Glomerular Filtration Rate 18 mL/min (>60); Est Glom Filt Rate - Afr Amer 21 mL/min (>60); Glucose 177 mg/dL (74-106); Potassium 4.3 mmol/L (3.5-5.1); Sodium Level 144 mmol/L (136-145)
== END ==
PROVIDERS: Family Provider Family Medicine; PCP Family Medicine; Referring Provider Physician Assistant Medical; Visit Provider Physician Assistant Medical
DX: N18.5 Chronic kidney disease, stage 5 (principal)
CPT/HCPCS: 36415; 80048

== ENCOUNTER 2018-11-11 10:28 | Inpatient (IN) | payer MEDICARE, SELFPAY ==
[2018-11-11] VITALS (14 sets, daily range): BP systolic 131–172; BP diastolic 44–89; PULSE 48–99; RESP 18–27; TEMP 36.1–36.9; O2SAT 83–100; BMI 41.8
--- NOTE | 2018-11-11 10:58 | EKG12_ITS ---
Test Reason : CHEST PAIN Blood Pressure : / mmHG Vent. Rate : 053 BPM Atrial Rate : 053 BPM P-R Int : 184 ms QRS Dur : 096 ms QT Int : 514 ms P-R-T Axes : 045 242 047 degrees QTc Int : 482 ms Sinus bradycardia Right superior axis deviation Nonspecific ST abnormality Prolonged QT Abnormal ECG Confirmed by REX LOONEY, JUSTIN ([id number]), loan expeditor HONORIO SHEFFIELD ([id number]) on 11/16/2018 9:46:04 AM Referred By: Sussy Bond Confirmed By:JUSTIN GOODMAN MD
--- NOTE | 2018-11-11 11:00 | RAD_ITS ---
STUDY: X-RAY CHEST REASON FOR EXAM: Female, 73 years old. Dyspnea. CHF. TECHNIQUE: Single AP portable view of the chest. COMPARISON: Comparison is made with prior study dated March 01, 2018. FINDINGS: EKG electrodes are seen. There is elevation of the right hemidiaphragm. Bilateral airspace disease in keeping with CHF. Follow-up is recommended. There is moderate cardiac enlargement. Normal mediastinum and jose f. Normal visualized pulmonary arteries. There is atherosclerotic tortuosity of the aortic arch and descending thoracic aorta. Normal visualized thoracic spine. Normal visualized ribs, clavicles, and shoulders. There is no demonstrated abnormality of the visualized soft tissue structures of the upper abdomen. RAD/Chest 1 View (Portable) IMPRESSION: Cardiomegaly. CHF. Electronically Signed: Brett Arcos MD at 11:23 EST , Service support ,
[2018-11-11 11:28] LABS: Absolute Lymphocyte Count 0.72 X10^3/ul (0.83-4.51); Absolute Neutrophil Count 6.1 X10^3/uL (2.0-7.7); Basophil# 0.02 X10^3/uL; Basophil% 0.3 % (0-1); Eosinophil# 0.06 X10^3/uL; Eosinophils% 0.8 % (0-5); Hematocrit 32.6 % (37-47); Hemoglobin 9.6 g/dl (12.0-15.0); Lymphocyte # 0.72 X10^3/ul (4.0); Lymphocyte % 9.8 % (19-41); Mean Corp Hgb Conc 29.4 g/gl (32-36); Mean Corpuscular Hgb 31.2 pg (27.0-32.0); Mean Corpuscular Volume 105.8 fL (81-99); Mean Platelet Vol. 10.6 fl (6.2-12.0); Monocyte% 5.5 % (0-10); Neutrophil # 6.09 X10^3/uL (2.7-7.7); Neutrophil % 83.2 % (47-70); POSITIVE COUNT NO; POSITIVE DIFFERENTIAL NO; POSITIVE MORPHOLOGY NO; Platelet Count 143 K/mm3 (150-450); RBC Distribution Width CV 14.1 % (11.6-14.6); RBC Distribution Width SD 53.7 fl (35.1-43.9); Red Blood Count 3.08 M/mm3 (4.2-5.4); White Blood Count 7.3 K/mm3 (4.4-11.0)
[2018-11-11 11:36] LABS: Anion Gap 7 (5-15); BUN 75 mg/dL (7-18); BUN/Creat Ratio 25.8 RATIO (10-20); Calcium,Total 9.1 mg/dL (8.5-10.1); Chloride 102 mmol/L (98-107); Creatinine, Serum 2.91 mg/dL (0.55-1.02); EST Glomerular Filtration Rate 17 mL/min (>60); Est Glom Filt Rate - Afr Amer 21 mL/min (>60); Estimated Creatinine Clearance 14.67 ml/min; Glucose 286 mg/dL (74-106); Potassium 4.6 mmol/L (3.5-5.1); Sodium Level 143 mmol/L (136-145)
[2018-11-11 13:08] LABS: Mucous, Urine 0 SEEN /hpf (<or=2+)
[2018-11-11 13:19] LABS: Color, Urine Straw (Yellow); Glucose, Dipstick Normal (Normal); Ketone-Dipstick Negative (Negative); Leukocyte Esterase-Dipstick 500 /ul (Negative); Nitrite-Dipstick Negative (Negative); Occult Blood-Urine 10 /ul (Negative); Protein-Dipstick 30 mg/dl (Negative); Urine Bilirubin Dipstick Negative (Negative); Urine Clarity Cloudy (Clear); Urine Urobilinogen Normal (Normal)
--- NOTE | 2018-11-11 13:22 | ED.VISSUMM ---
- ER Visit Summary Date of Service: 11/11/18 Chief Complaint: [Shortness of breath] History of Present Illness: The patient is a 73 F [presents to the emergency department complaint of shortness of breath that she has had for several days. Patient has gained over 10 pounds in the last month. Patient complains of exertional dyspnea and dyspnea at rest. Patient is describing some mild diffuse chest dull discomfort. Patient states that she used to be on dialysis but has been off since March 03, 2018. She denies any cough or fever. She denies recent travel or surgery. Patient has history of CHF, COPD, diabetes, hypertension, A. fib, chronic kidney disease, aortic stenosis, and crest syndrome.] Physical Examination: [HEENT-PERRLA, EOMI. Cranial nerves II through XII grossly intact. TMs clear. Mucous membranes moist. No adenopathy. No JVD Cardiovascular-regular rate and rhythm with 2 out of 3 systolic ejection murmur noted. Lungs-minutes breath sounds in the bases with rales noted. Mild tachypnea. No accessory muscle use or retractions. Patient has some mild conversational dyspnea. Abdomen-normoactive bowel sounds, soft, nontender, no rebound or rigidity, no peritoneal signs. Extremities-intact ?4, normal range of motion, normal pulses, atraumatic. Patient has +1 edema both lower extremities.] Test Results: [EKG obtained shows sinus bradycardia with a ventricular rate of 53 bpm with some nonspecific ST changes. CBC with differential obtained showed a white count of 7.3, hemoglobin 9.6, hematocrit 33, platelets 143. Chemistries unremarkable. BUN was 75 and creatinine 2.91. Glucose was 286. Troponin was less than 0.015. BNP was 1591. Urinalysis was ordered and pending] Emergency Department Course and Treatment: [Patient was given Lasix 80 mg IV and had an inch of Nitropaste placed to the anterior chest wall.] Treatment Plan: [Admit for further diuresis] Disposition: [Admit] Impression: [CHF exacerbation-failed outpatient therapy Renal insufficiency Anemia] This note was generated with Oz Sonotekation software. It may contain incorrect words, spelling, and punctuation that were not noted in review of the chart prior to signing ED Disposition - Plan for ED Patient: Referrals: Zeenat Harp MD [Primary Care Provider] -
--- NOTE | 2018-11-11 13:25 | ED.DCSUM_ITS ---
- ER Visit Summary Date of Service: 11/11/18 Chief Complaint: [Shortness of breath] History of Present Illness: The patient is a 73 F [presents to the emergency department complaint of shortness of breath that she has had for several days. Patient has gained over 10 pounds in the last month. Patient complains of exertional dyspnea and dyspnea at rest. Patient is describing some mild diffuse chest dull discomfort. Patient states that she used to be on dialysis but has been off since March 03, 2018. She denies any cough or fever. She denies recent travel or surgery. Patient has history of CHF, COPD, diabetes, hypertension, A. fib, chronic kidney disease, aortic stenosis, and crest syndrome.] Physical Examination: [HEENT-PERRLA, EOMI. Cranial nerves II through XII grossly intact. TMs clear. Mucous membranes moist. No adenopathy. No JVD Cardiovascular-regular rate and rhythm with 2 out of 3 systolic ejection murmur noted. Lungs-minutes breath sounds in the bases with rales noted. Mild tachypnea. No accessory muscle use or retractions. Patient has some mild conversational dyspnea. Abdomen-normoactive bowel sounds, soft, nontender, no rebound or rigidity, no peritoneal signs. Extremities-intact ?4, normal range of motion, normal pulses, atraumatic. Patie nt has +1 edema both lower extremities.] Test Results: [EKG obtained shows sinus bradycardia with a ventricular rate of 53 bpm with some nonspecific ST changes. CBC with differential obtained showed a white count of 7.3, hemoglobin 9.6, hematocrit 33, platelets 143. Chemistries unremarkable. BUN was 75 and creatinine 2.91. Glucose was 286. Troponin was less than 0.015. BNP was 1591. Urinalysis was ordered and pending] Emergency Department Course and Treatment: [Patient was given Lasix 80 mg IV and had an inch of Nitropaste placed to the anterior chest wall.] Treatment Plan: [Admit for further diuresis] Disposition: [Admit] Impression: [CHF exacerbation-failed outpatient therapy Renal insufficiency Anemia] This note was generated with HeyAnitaation software. It may contain incorrect words, spelling, and punctuation that were not noted in review of the chart prior to signing ED Disposition - Plan for ED Patient: Referrals: Zeenat Harp MD [Primary Care Provider] -
--- NOTE | 2018-11-11 13:28 | PCM.HP.STD ---
Problem List (1) Chronic renal insufficiency, stage V Status: Chronic (2) Acute hypercapnic respiratory failure Status: Acute (3) Acute on chronic respiratory failure with hypoxia and hypercapnia Status: Chronic (4) Paroxysmal A-fib Status: Chronic (5) End stage COPD Status: Chronic (6) Pulmonary hypertension Status: Chronic (7) HTN (hypertension) Status: Chronic Qualifiers: Hypertension type: essential hypertension Qualified Code(s): I10 - Essential (primary) hypertension (8) CREST variant of scleroderma Status: Chronic (9) Stroke Status: Chronic Qualifiers: CVA mechanism: unspecified Qualified Code(s): I63.9 - Cerebral infarction, unspecified (10) Hyperlipidemia Status: Chronic Qualifiers: Hyperlipidemia type: pure hypercholesterolemia Qualified Code(s): E78.00 - Pure hypercholesterolemia, unspecified; E78.0 - Pure hypercholesterolemia History of Present Illness Date of Admission: 11/11/18 Chief Complaint: Progressive shortness of breath on going for about 2 weeks The patient is a 73 year old F with multiple comorbidities significant for CKD stage V/ESRD, off dialysis since February, along with nephrology, chronic diastolic CHF, paroxysmal atrial fibrillation, hypertension, crest syndrome, type II DM, history of stroke(intracerebral bleed) comes in with progressively worsening shortness of breath. Patient states that her diuretics were recently increased, but she finds that she does not urinate during the day but rather urinates frequently at night. She admits to progressively increasing weight, exertional dyspnea, dyspnea at rest orthopnea, PND, bilateral leg swelling. Vitals in the ED show temperature of 97.6F, heart rate 60, blood pressure 160/73, respiratory 22, she was saturating 83% on room air, improved to 95% on 6 L. Her admitting labs show RBC count of 7.3, hemoglobin 9.6, she appears to be her baseline, platelet count of 143, which is her baseline, MCV of 105.8, sodium 143, potassium 4.6, chloride 102, bicarbonate 34, BUN 75, creatinine 2.91, troponin was less than 0.15, BNP was 1591, previous BNP was 475. Chest x-ray showed cardiomegaly with bilateral airspace disease suggestive of CHF Past Medical History Past Medical History (Chronic Problems): Chronic Problems (Last Reviewed 09/09/18 @ 14:39 by Edna Alcaraz) Chronic renal insufficiency, stage V (Chronic) Acute on chronic respiratory failure with hypoxia and hypercapnia (Chronic) ESRD (end stage renal disease) on dialysis (Chronic) Rheumatic mitral insufficiency (Chronic) Paroxysmal A-fib (Chronic) Valvular heart disease (Chronic) End stage COPD (Chronic) Pulmonary hypertension (Chronic) HTN (hypertension) (Chronic) 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) S/P craniotomy (Chronic) For intracerebral hemorrhage Morbid obesity (Chronic) Obstructive sleep apnea (Chronic) Untreated Type 2 diabetes mellitus (Chronic) History of cerebral hemorrhage (Chronic) Anemia (Chronic) Aortic stenosis, mild (Chronic) Mitral stenosis (Chronic) mild Stroke (Chronic) Hyperlipidemia (Chronic) Vitamin D deficiency (Chronic) Neuropathic pain (Chronic) Medical History: Medical History (Last Reviewed 09/09/18 @ 14:39 by Edna Alcaraz) Chronic renal insufficiency, stage V (Chronic) N18.5 Rheumatic mitral insufficiency (Chronic) I05.1 HTN (hypertension) (Chronic) I10 CREST variant of scleroderma (Chronic) M34.1 Peripheral arterial occlusive disease (Chronic) I77.9 Morbid obesity (Chronic) E66.01 Obstructive sleep apnea (Chronic) G47.33 Untreated Type 2 diabetes mellitus (Chronic) E11.9 History of cerebral hemorrhage (Chronic) Z86.79 Anemia (Chronic) D64.9 Aortic stenosis, mild (Chronic) I35.0 Mitral stenosis (Chronic) I05.0 mild Stroke (Chronic) I63.9 Hyperlipidemia (Chronic) E78.5 Vitamin D deficiency (Chronic) E55.9 Neuropathic pain (Chronic) Presence of surgically created arteriovenous shunt for hemodialysis Onset Date: ~03/2018 Z99.2 Aortic stenosis I35.0 Bradycardia R00.1 Cerebral hemorrhage I61.9 Depression F32.9 Dyspnea R06.00 History of Coumadin therapy Z92.29 Left atrial enlargement I51.7 Legally blind H54.8 Lung nodule R91.1 Palpitations R00.2 Rheumatic mitral stenosis I05.0 Wheezing R06.2 Allergies No Known Allergies Allergy (Verified 11/11/18 09:37) Home Medications: Ambulatory Orders Medication Instructions Recorded Aspirin 325 mg PO DAILY@0800 03/01/18 Atorvastatin Calcium 40 mg PO QHS 03/01/18 Clonidine HCl 0.1 mg PO TID 03/01/18 Ergocalciferol [Vitamin D] 1 cap PO QMONTH 03/01/18 Insulin Aspart [Novolog Flexpen] See Protocol SQ 4X/DAY 03/01/18 Insulin Glargine [Lantus SoloStar 39 units SQ BID 03/01/18 Pen] pantoprazole 40 mg tablet,delayed 40 mg PO QDAY 04/06/18 release amiodarone 200 mg tablet 200 mg PO QDAY 04/28/18 calcitriol 0.25 mcg capsule 0.25 mcg PO ONCE 09/09/18 metolazone 5 mg tablet 5 mg PO ONCE 09/09/18 metoprolol succinate ER 25 mg 25 mg PO DAILY 09/09/18 capsule sprinkle, ext. release 24 hr furosemide 40 mg tablet 80 mg PO DAILY tab 10/21/18 potassium chloride ER 10 mEq 10 meq PO DAILY 10/21/18 tablet,extended release Ferrous Sulfate 325 mg PO TIDCM 11/11/18 Surgical History: Surgical History (Last Reviewed 09/09/18 @ 14:39 by Edna Alcaraz) S/P craniotomy (Chronic) Z98.890 For intracerebral hemorrhage S/P Achilles tendon repair Z98.890 S/P carpal tunnel release Z98.890 S/P dialysis catheter insertion Z95.828, Z99.2 S/P laparoscopic cholecystectomy Z90.49 S/P rotator cuff repair Z98.890 S/P tonsillectomy Z90.89 Surgical History: cholecystectomy, rotator cuff repair, tonsillectomy, - - Status post craniotomy, dialysis catheter insertion, status post Achilles tendon repair, bilateral carpal tunnel repair/release Psychiatric History: No pertinent psych hx [employer] History: No pertinent [employer] history Lives: Spouse/ Significant Other Smoking Status: Never smoker Tobacco Use: Non-smoker Alcohol: None Drugs: None - *Family History Maternal Family History: Family History (Last Reviewed 09/09/18 @ 14:39 by Edna Alcaraz) Mother Cancer Diabetes Kidney disease Father Heart disease Diabetes Kidney disease History Items: Cancer, Diabetes, Renal Disease Paternal Family History: Family History (Last Reviewed 09/09/18 @ 14:39 by Edna Alcaraz) Mother Cancer Diabetes Kidney disease Father Heart disease Diabetes Kidney disease History Items: Diabetes, Heart Disease, Renal Disease Review of Systems Constitutional: Reports: Anorexia, Weight Change, Fatigue. Denies: Chills, Fever, Night Sweats, Weakness Eyes: Denies: Blurred vision, Cataracts, Eyelid Inflammation, Pain, Redness HEENT: Denies: Difficulty Hearing, Difficulty Swallowing, Head Aches, Hearing Changes, Sinus Drainage, Sore Throat Cardiovascular: Reports: Orthopnea, Paroxysmal Noc. Dyspnea. Denies: Chest Pain, Claudication, Chest Pressure, Chest Tightness, Light Headedness Respiratory: Denies: Cough, Hemoptysis, Shortness of breath upon exertion, Sputum production Gastrointestinal: Denies: Abdominal Pain, Constipation, Hematemesis, Hematochezia Genitourinary: Denies: Dysuria, Frequency, Incontinence, Nocturia Musculoskeletal: Denies: Joint stiffness, Joint swelling Skin: Denies: Pruritis, Rash Neurological: Denies: Difficulty swallowing, Focal weakness Psychiatric: Denies: Homicidal Ideations, Suicidal Ideations VTE Information - Inpt Only VTE Present on Admission: No VTE Pharm Prophylaxis ordered?: Yes - Physical Exam General: Alert, Oriented x3, Cooperative, No apparent distress, - - on 3L oxygen HEENT: Atraumatic, PERRLA, EOMI, Normocephalic Oral: Moist Mucosa Neck: Supple Lungs: Clear to auscultation, Normal air movement Cardiovascular: Regular rate, Regular Rhythm, Normal S1, Normal S2, No murmurs Abdomen: Bowel Sounds Present, Soft, Non Tender, Non-Distended, No Hepato-splenomegaly Extremities: Edema - bilateral pedaL edema +2, woody Skin: No rashes, No breakdown Musculoskeletal: No Tenderness to Palpation of Joints or Extremities Lymphatic: No Cervical, Supraclavicular, or Inguinal Adenopathy Neurological: Cranial nerves II-XII grossly intact Psych/Mental Status: Normal Affect, Appropriate Vital Signs Temp Pulse Resp BP Pulse Ox 97.8 F 49 L 18 163/73 H 97 11/11/18 13:05 11/11/18 13:05 11/11/18 13:05 11/11/18 13:05 11/11/18 13:05 Oxygen Flow Rate (L/min) 6 Oxygen Delivery Method Nasal Cannula Weight: 107.048 kg Body Mass Index (BMI) 41.8 Finger Stick Blood Glucose 500 Laboratory Tests Past 24 Hrs 11/11/18 11/11/18 11/11/18 10:40 10:40 10:40 WBC 7.3 RBC 3.08 L Hgb 9.6 L Hct 32.6 L MCV 105.8 H MCH 31.2 MCHC 29.4 L RDW 14.1 RDW Differential 53.7 H Plt Count 143 L MPV 10.6 Immature Gran % (Auto) 0.400 Neut % (Auto) 83.2 H Lymph % (Auto) 9.8 L [place] % (Auto) 5.5 Eos % (Auto) 0.8 Baso % (Auto) 0.3 Absolute Neuts (auto) 6.1 Absolute Lymphs (auto) 0.72 L Total Counted Not Reportable Sodium 143 Potassium 4.6 Chloride 102 Carbon Dioxide 34.0 H Anion Gap 7 BUN 75 H Creatinine 2.91 H Estim Creat Clear Calc 14.67 Est GFR (MDRD) Af Amer 21 L Est GFR (MDRD) Non-Af 17 L BUN/Creatinine Ratio 25.8 H Glucose 286 H Calcium 9.1 Troponin I < 0.015 B-Natriuretic Peptide 1591.3 H Urine Color Urine Clarity Urine pH Ur Specific [place] Urine Protein Urine Glucose (UA) Urine Ketones Urine Occult Blood Urine Nitrite Urine Bilirubin Urine Urobilinogen Ur Leukocyte Esterase Urine RBC Urine WBC Ur Squamous Epith Cells Urine Bacteria Urine Mucus 11/11/18 13:00 WBC RBC Hgb Hct MCV MCH MCHC RDW RDW Differential Plt Count MPV Immature Gran % (Auto) Neut % (Auto) Lymph % (Auto) [place] % (Auto) Eos % (Auto) Baso % (Auto) Absolute Neuts (auto) Absolute Lymphs (auto) Total Counted Sodium Potassium Chloride Carbon Dioxide Anion Gap BUN Creatinine Estim Creat Clear Calc Est GFR (MDRD) Af Amer Est GFR (MDRD) Non-Af BUN/Creatinine Ratio Glucose Calcium Troponin I B-Natriuretic Peptide Urine Color Straw Urine Clarity Cloudy Urine pH 5.0 Ur Specific [place] 1.010 Urine Protein 30 H Urine Glucose (UA) Normal Urine Ketones Negative Urine Occult Blood 10 H Urine Nitrite Negative Urine Bilirubin Negative Urine Urobilinogen Normal Ur Leukocyte Esterase 500 H Urine RBC Pending Urine WBC Pending Ur Squamous Epith Cells Pending Urine Bacteria Pending Urine Mucus Pending Assessment/Plan All Active Problems (Last Reviewed 09/09/18 @ 14:39 by Edna Alcaraz) Acute hypercapnic respiratory failure (Acute) Altered mental status, unspecified (Acute) Problem with dialysis access (Acute) Ulcer with gangrene (Resolved) 73 year old F with multiple comorbidities significant for CKD stage V/ESRD, off dialysis since February, along with nephrology, chronic diastolic CHF, paroxysmal atrial fibrillation, hypertension, crest syndrome, type II DM, history of stroke(intracerebral bleed) comes in with progressively worsening shortness of breath. 1. Acute on chronic diastolic CHF, last 2D echo in November 2017 showed EF of 65%, moderately enlarged left atrium, moderate to severe mitral annular calcification, mild mike-valvular insufficiency Plan: Admit to PCU, monitor on telemetry, IV Lasix 60 mg IV twice daily, hold home Bumex and Lasix monitor BMP closely as patient was previously on dialysis. Continue to monitor per CHF protocol, fluid restriction, daily weights 2. CKD stage V, was on dialysis; she has been off dialysis since February 2018, will monitor BMP whilst on Lasix, Recommend nephrology consult if creatinine starts to get worse 3. Paroxysmal atrial fibrillation, rate controlled, on amiodarone, aspirin, metoprolol 4. Hypertension, controlled, continue on clonidine, metoprolol 5. Type II DM, blood sugars are reportedly controlled at home: Manuel continue on home Lantus regimen, continue on insulin sliding scale with Accu-Cheks 6. 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 History of CVA, history of intracerebral bleed, on aspirin, statin 8. DVT prophylaxis - Heparin SC 9. Code status- DNR-CCA. Code Visit Inpatient E&M: 44867 Init Hosp L3
[2018-11-11 13:33] LABS: Bacteria 1+ /hpf (None Seen); Red Blood Cells-Urine 0-5 SEEN /hpf (0-5); Squamous Epithelial Cells - UA 0-5 SEEN /hpf (5-10); White Blood Cells 25-50 SEEN /hpf (0-5)
[2018-11-11] MEDS: Nitroglycerin Oint 1 INCH PACKET TRANSDERM. (13:37)
[2018-11-11] MEDS: Furosemide 100 MG/10 ML Vial 80 MG IV (13:39)
--- NOTE | 2018-11-11 15:37 | CASEMGMT ---
Patient has healthcare POA and healthcare LW on file. Maci YI [employer]
[2018-11-11] MEDS: Heparin Injection (Vial) 5,000 UNIT/ML VIAL 5000 UNIT SC ×2 (16:36→22:12)
[2018-11-11] MEDS: cloNIDine HCl 0.1 MG Tablet PO ×2 (16:36→22:12)
[2018-11-11] MEDS: Ferrous Sulfate 325 MG Tablet PO (16:37)
[2018-11-11 16:51] LABS: Bedside Glucose 134 mg/dL (70-110)
[2018-11-11] MEDS: Furosemide 40 MG/4 ML Vial 60 MG IV (18:03)
[2018-11-11] MEDS: Atorvastatin Calcium 40 MG Tablet PO (22:15)
[2018-11-11] MEDS: Nystatin Powder 15gm Bottle 1 APPLIC TOPICAL (22:15)
[2018-11-11] MEDS: Acetaminophen 325 MG Tablet 650 MG PO (22:35)
[2018-11-11 23:37] LABS: Bedside Glucose 173 mg/dL (70-110)
[2018-11-12] VITALS (19 sets, daily range): BP systolic 121–145; BP diastolic 49–77; PULSE 44–53; RESP 18–26; TEMP 36.4–37; O2SAT 85–99
[2018-11-12] MEDS: cloNIDine HCl 0.1 MG Tablet PO ×2 (06:26→13:56)
[2018-11-12 06:55] LABS: Absolute Lymphocyte Count 1.11 X10^3/ul (0.83-4.51); Absolute Neutrophil Count 3.7 X10^3/uL (2.0-7.7); Basophil# 0.02 X10^3/uL; Basophil% 0.4 % (0-1); Eosinophil# 0.08 X10^3/uL; Eosinophils% 1.5 % (0-5); Hematocrit 32.2 % (37-47); Hemoglobin 9.3 g/dl (12.0-15.0); Lymphocyte # 1.11 X10^3/ul (4.0); Lymphocyte % 20.6 % (19-41); Mean Corp Hgb Conc 28.9 g/gl (32-36); Mean Corpuscular Hgb 31.6 pg (27.0-32.0); Mean Corpuscular Volume 109.5 fL (81-99); Mean Platelet Vol. 10.1 fl (6.2-12.0); Monocyte# 0.44 X10^3/uL; Monocyte% 8.2 % (0-10); Neutrophil # 3.71 X10^3/uL (2.7-7.7); Neutrophil % 68.9 % (47-70); POSITIVE COUNT NO; POSITIVE DIFFERENTIAL NO; POSITIVE MORPHOLOGY NO; Platelet Count 128 K/mm3 (150-450); RBC Distribution Width CV 14.1 % (11.6-14.6); RBC Distribution Width SD 53.5 fl (35.1-43.9); Red Blood Count 2.94 M/mm3 (4.2-5.4); White Blood Count 5.4 K/mm3 (4.4-11.0)
[2018-11-12 07:07] LABS: Bedside Glucose 128 mg/dL (70-110)
--- NOTE | 2018-11-12 07:20 | CPS ---
PT WAS PLACED ON 3.5 LPM...SAT 92%. NURSE AWARE OF INCREASE
[2018-11-12 07:28] LABS: Anion Gap 7 (5-15); BUN 80 mg/dL (7-18); BUN/Creat Ratio 25.9 RATIO (10-20); Calcium,Total 8.7 mg/dL (8.5-10.1); Chloride 103 mmol/L (98-107); Creatinine, Serum 3.09 mg/dL (0.55-1.02); EST Glomerular Filtration Rate 16 mL/min (>60); Est Glom Filt Rate - Afr Amer 19 mL/min (>60); Estimated Creatinine Clearance 13.81 ml/min; Glucose 128 mg/dL (74-106); Potassium 4.6 mmol/L (3.5-5.1); Sodium Level 140 mmol/L (136-145)
[2018-11-12] MEDS: Ferrous Sulfate 325 MG Tablet PO ×3 (09:07→16:48)
[2018-11-12] MEDS: Amiodarone 200 MG Tablet PO (09:07)
[2018-11-12] MEDS: Calcitriol 0.25 MCG Capsule PO (09:07)
[2018-11-12] MEDS: Pantoprazole Sodium 40 MG Tablet PO (09:07)
[2018-11-12] MEDS: Aspirin 325 MG Tablet PO (09:08)
[2018-11-12] MEDS: Furosemide 40 MG/4 ML Vial 60 MG IV ×2 (09:09→16:47)
[2018-11-12] MEDS: Heparin Injection (Vial) 5,000 UNIT/ML VIAL 5000 UNIT SC ×2 (09:10→21:39)
[2018-11-12] MEDS: Nystatin Powder 15gm Bottle 1 APPLIC TOPICAL ×2 (09:27→21:41)
[2018-11-12] MEDS: Acetaminophen 325 MG Tablet 650 MG PO ×2 (10:16→16:57)
--- NOTE | 2018-11-12 10:59 | CASEMGMT ---
ELI STARR assessment: Face to Face with patient for initial transition planning/care coordination assessment. ELI STARR introduced self and role at [facility], pt voices understanding and consents to assessment at this time. Pt is sitting up in chair in no distress at this time. Pt is A/Ox4 at this time and answers all questions appropriately at this time. Pt's is at bedside during assessment and assists with answering questions at times. Care providers, pharmacy, and demographics verified at this time. PCP: Scarlett Specialists: Danelle, cardio; romero Valencia Preferred Pharmacy: [facility] Insurance: [facility] Living Will/HPOA: Pt states has LW/HPOA and they are on file at [facility] at this time. Pt's , Ilir Garcia, is HPOA. LNOK: Ilir Garcia, ; Sussy Garcia, daughter Living Arrangements: Pt states lives with in 1 story home with a 1/2 step into home and states no concerns at home at this time. Pt states completes meals and chores but she is independent with self-care. Transportation: Pt states drives and states no transportation concerns at this time. DME/HHC: Pt states has the following DME: raised toilet seat, walker, rollater, w/c, shower chair, grab bars, nebulizer, and home oxygen at 3.5liters continuous thru [employer]. Pt states she has had [facility] HHC in the past and is willing to have them again. Pt states no hx SNF and states she will never go there at this time. Pt states no concerns with going home at time of discharge. Pt states is retired. Pt states does not smoke or drink ETOH. Pt states no further concerns/needs at this time. CM to follow PT/OT evals and for any further discharge planning/needs. Advised pt to ask for CM if any further questions/concerns/needs arise, voices understanding. Plan: Home, pending PT/OT evals. S[place]en ELI STARR
[2018-11-12 12:07] LABS: Bedside Glucose 266 mg/dL (70-110)
--- NOTE | 2018-11-12 15:39 | PCM.PN.HOSP ---
Patient Problems: Active and Suspected Problems (Last Reviewed 09/09/18 @ 14:39 by Edna Alcaraz) CHF (congestive heart failure) (Acute) Subjective: myalgias. still short of breath. Vitals/I&O's: Vital Signs Temp Pulse Resp BP Pulse Ox 36.6 C 52 L 20 H 131/49 H 96 11/12/18 13:58 11/12/18 15:38 11/12/18 13:58 11/12/18 13:58 11/12/18 13:58 Oxygen Flow Rate (L/min) 3.5 Oxygen Delivery Method Nasal Cannula Weight: 112.1 kg Body Mass Index (BMI) 41.8 Finger Stick Blood Glucose 500 Intake and Output for Last 24 Hours 11/10/18 11/11/18 11/12/18 23:59 23:59 23:59 Intake Total 415 / 415 240 / 240 Output Total 450 / 450 Balance -35 / -35 240 / 240 General: Alert, - - listless HEENT: Atraumatic, PERRLA, EOMI, Normocephalic Lungs: Diminished, - - coarse breath sounds. Cardiovascular: Regular rate, Regular Rhythm, Normal S1, Normal S2, No murmurs Abdomen: Bowel Sounds Present, Soft, Non Tender, Non-Distended, No Hepato-splenomegaly Extremities: No Calf Tenderness, Edema Skin: No rashes, No breakdown Psych/Mental Status: Normal Affect, Appropriate Laboratory Results 11/11/18 16:02: Troponin I < 0.015 11/11/18 16:32: POC Glucose 134 H 11/11/18 18:20: Troponin I < 0.015 11/11/18 21:40: Troponin I < 0.015 11/11/18 22:11: POC Glucose 173 H 11/12/18 06:45: WBC 5.4, RBC 2.94 L, Hgb 9.3 L, Hct 32.2 L, MCV 109.5 H, MCH 31.6, MCHC 28.9 L, RDW 14.1, RDW Differential 53.5 H, Plt Count 128 L, MPV 10.1, Immature Gran % (Auto) 0.400, Neut % (Auto) 68.9, Lymph % (Auto) 20.6, [place] % (Auto) 8.2, Eos % (Auto) 1.5, Baso % (Auto) 0.4, Absolute Neuts (auto) 3.7, Absolute Lymphs (auto) 1.11, Total Counted Not Reportable 11/12/18 06:45: Sodium 140, Potassium 4.6, Chloride 103, Carbon Dioxide 30.0, Anion Gap 7, BUN 80 H, Creatinine 3.09 H, Estim Creat Clear Calc 13.81, Est GFR (MDRD) Af Amer 19 L, Est GFR (MDRD) Non-Af 16 L, BUN/Creatinine Ratio 25.9 H, Glucose 128 H, Calcium 8.7 11/12/18 07:00: POC Glucose 128 H 11/12/18 11:59: POC Glucose 266 H Current Medications Acetaminophen (Tylenol) 650 mg PO Q6H PRN PRN PRN Reason: Mild Pain (1-3)/Temp > 100.7 F Last Admin: 11/12/18 10:16 Dose: 650 mg Amiodarone HCl (Cordarone) 200 mg PO DAILY [facility] Last Admin: 11/12/18 09:07 Dose: 200 mg Aspirin (Aspirin) 325 mg PO DAILY@0800 [facility] Last Admin: 11/12/18 09:08 Dose: 325 mg Atorvastatin Calcium (Lipitor) 40 mg PO QHS [facility] Last Admin: 11/11/18 22:15 Dose: 40 mg Calcitriol (Rocaltrol) 0.25 mcg PO DAILY [facility] Last Admin: 11/12/18 09:07 Dose: 0.25 mcg Clonidine (Catapres) 0.1 mg PO TID [facility] Last Admin: 11/12/18 13:56 Dose: 0.1 mg Ergocalciferol (Vitamin D) 1 unit PO QMONTH [facility] Ferrous Sulfate (Ferrous Sulfate) 325 mg PO TIDCM [facility] Last Admin: 11/12/18 12:03 Dose: 325 mg Furosemide (Lasix) 60 mg IV BIDLX [facility] Last Admin: 11/12/18 09:09 Dose: 60 mg Heparin Sodium (Porcine) (Heparin Na) 5,000 unit SC BID [facility] Last Admin: 11/12/18 09:10 Dose: 5,000 unit Insulin Glargine (Lantus (Bkc)) 39 units SC BID [facility] Last Admin: 11/12/18 09:09 Dose: 39 u Insulin Human Lispro (Humalog Kwikpen (Bkc)) 0 unit SC ACHS [facility]; Protocol Magnesium Hydroxide (Milk Of Magnesia) 30 ml PO DAILY PRN PRN Reason: Constipation Nystatin (Mycostatin Powder) 1 applic TOPICAL BID [facility]; Protocol Last Admin: 11/12/18 09:27 Dose: 1 applicatio Ondansetron HCl (Zofran) 4 mg IV Q8H PRN PRN PRN Reason: NAUSEA Pantoprazole Sodium (Protonix) 40 mg PO DAILY [facility] Last Admin: 11/12/18 09:07 Dose: 40 mg Potassium Chloride (K-Dur) 10 meq PO DAILYCM [facility] Last Admin: 11/12/18 09:08 Dose: 10 meq Medical Necessity - Tobacco Use Smoking Status: Never smoker Tobacco Use: Non-smoker Assessment/Plan All Active Problems (Last Reviewed 09/09/18 @ 14:39 by Edna Alcaraz) CHF (congestive heart failure) (Acute) Altered mental status, unspecified (Acute) Ulcer with gangrene (Resolved) 1. HFpEF EF 65% from echo on 11/27/17 Weight increased 12 kg since September Continue with IV lasix. No EVER-/ARB given CKD Toprol XL held given bradycardia. 2. Bradycardia ongoing Toprol Xl held Continue to monitor off beta-stephania 3. CKD 4 slightly elevated monitor 4. DM2 fair control continue SSI and Lantus 5. DVT proph: SQ heparin. 6. General malaise maybe viral check resp viral panel. Code Visit Inpatient E&M: 01230 Subs Hosp L2
--- NOTE | 2018-11-12 15:48 | PN_ITS ---
Patient Problems: Active and Suspected Problems (Last Reviewed 09/09/18 @ 14:39 by Edna Alcaraz) CHF (congestive heart failure) (Acute) Subjective: myalgias. still short of breath. Vitals/I&O's: Vital Signs Temp Pulse Resp BP Pulse Ox 36.6 C 52 L 20 H 131/49 H 96 11/12/18 13:58 11/12/18 15:38 11/12/18 13:58 11/12/18 13:58 11/12/18 13:58 Oxygen Flow Rate (L/min) 3.5 Oxygen Delivery Method Nasal Cannula Weight: 112.1 kg Body Mass Index (BMI) 41.8 Finger Stick Blood Glucose 500 Intake and Output for Last 24 Hours 11/10/18 11/11/18 11/12/18 23:59 23:59 23:59 Intake Total 415 / 415 240 / 240 Output Total 450 / 450 Balance -35 / -35 240 / 240 General: Alert, - - listless HEENT: Atraumatic, PERRLA, EOMI, Normocephalic Lungs: Diminished, - - coarse breath sounds. Cardiovascular: Regular rate, Regular Rhythm, Normal S1, Normal S2, No murmurs Abdomen: Bowel Sounds Present, Soft, Non Tender, Non-Distended, No Hepato- splenomegaly Extremities: No Calf Tenderness, Edema Skin: No rashes, No breakdown Psych/Mental Status: Normal Affect, Appropriate Laboratory Results 11/11/18 16:02: Troponin I < 0.015 11/11/18 16:32: POC Glucose 134 H 11/11/18 18:20: Troponin I < 0.015 11/11/18 21:40: Troponin I < 0.015 11/11/18 22:11: POC Glucose 173 H 11/12/18 06:45: WBC 5.4, RBC 2.94 L, Hgb 9.3 L, Hct 32.2 L, MCV 109.5 H, MCH 31.6, MCHC 28.9 L, RDW 14.1, RDW Differential 53.5 H, Plt Count 128 L, MPV 10.1, Immature Gran % (Auto) 0.400, Neut % (Auto) 68.9, Lymph % (Auto) 20.6, [place] % (Auto) 8.2, Eos % (Auto) 1.5, Baso % (Auto) 0.4, Absolute Neuts (auto) 3.7, Absolute Lymphs (auto) 1.11, Total Counted Not Reportable 11/12/18 06:45: Sodium 140, Potassium 4.6, Chloride 103, Carbon Dioxide 30.0, Anion Gap 7, BUN 80 H, Creatinine 3.09 H, Estim Creat Clear Calc 13.81, Est GFR (MDRD) Af Amer 19 L, Est GFR (MDRD) Non-Af 16 L, BUN/Creatinine Ratio 25.9 H, Glucose 128 H, Calcium 8.7 11/12/18 07:00: POC Glucose 128 H 11/12/18 11:59: POC Glucose 266 H Current Medications Acetaminophen (Tylenol) 650 mg PO Q6H PRN PRN PRN Reason: Mild Pain (1-3)/Temp > 100.7 F Last Admin: 11/12/18 10:16 Dose: 650 mg Amiodarone HCl (Cordarone) 200 mg PO DAILY [facility] Last Admin: 11/12/18 09:07 Dose: 200 mg Aspirin (Aspirin) 325 mg PO DAILY@0800 [facility] Last Admin: 11/12/18 09:08 Dose: 325 mg Atorvastatin Calcium (Lipitor) 40 mg PO QHS [facility] Last Admin: 11/11/18 22:15 Dose: 40 mg Calcitriol (Rocaltrol) 0.25 mcg PO DAILY [facility] Last Admin: 11/12/18 09:07 Dose: 0.25 mcg Clonidine (Catapres) 0.1 mg PO TID [facility] Last Admin: 11/12/18 13:56 Dose: 0.1 mg Ergocalciferol (Vitamin D) 1 unit PO QMONTH [facility] Ferrous Sulfate (Ferrous Sulfate) 325 mg PO TIDCM [facility] Last Admin: 11/12/18 12:03 Dose: 325 mg Furosemide (Lasix) 60 mg IV BIDLX [facility] Last Admin: 11/12/18 09:09 Dose: 60 mg Heparin Sodium (Porcine) (Heparin Na) 5,000 unit SC BID [facility] Last Admin: 11/12/18 09:10 Dose: 5,000 unit Insulin Glargine (Lantus (Bkc)) 39 units SC BID [facility] Last Admin: 11/12/18 09:09 Dose: 39 u Insulin Human Lispro (Humalog Kwikpen (Bkc)) 0 unit SC ACHS [facility]; Protocol Magnesium Hydroxide (Milk Of Magnesia) 30 ml PO DAILY PRN PRN Reason: Constipation Nystatin (Mycostatin Powder) 1 applic TOPICAL BID [facility]; Protocol Last Admin: 11/12/18 09:27 Dose: 1 applicatio Ondansetron HCl (Zofran) 4 mg IV Q8H PRN PRN PRN Reason: NAUSEA Pantoprazole Sodium (Protonix) 40 mg PO DAILY [facility] Last Admin: 11/12/18 09:07 Dose: 40 mg Potassium Chloride (K-Dur) 10 meq PO DAILYCM [facility] Last Admin: 11/12/18 09:08 Dose: 10 meq Medical Necessity - Tobacco Use Smoking Status: Never smoker Tobacco Use: Non-smoker Assessment/Plan All Active Problems (Last Reviewed 09/09/18 @ 14:39 by Edna Alcaraz) CHF (congestive heart failure) (Acute) Altered mental status, unspecified (Acute) Ulcer with gangrene (Resolved) 1. HFpEF EF 65% from echo on 11/27/17 Weight increased 12 kg since September Continue with IV lasix. No EVER-/ARB given CKD Toprol XL held given bradycardia. 2. Bradycardia ongoing Toprol Xl held Continue to monitor off beta-stephania 3. CKD 4 slightly elevated monitor 4. DM2 fair control continue SSI and Lantus 5. DVT proph: SQ heparin. 6. General malaise maybe viral check resp viral panel. Code Visit Inpatient E&M: 86518 Subs Hosp L2
[2018-11-12] MEDS: Insulin Lispro 100 UNIT/ML INSULN.PEN SC (16:43)
[2018-11-12 17:02] LABS: Bedside Glucose 220 mg/dL (70-110)
[2018-11-12] MEDS: Atorvastatin Calcium 40 MG Tablet PO (21:41)
[2018-11-12 21:52] LABS: Bedside Glucose 166 mg/dL (70-110)
[2018-11-13] VITALS (12 sets, daily range): BP systolic 128–156; BP diastolic 51–79; PULSE 47–70; RESP 14–22; TEMP 36.5–37.3; O2SAT 93–100
[2018-11-13] MEDS: Acetaminophen 325 MG Tablet 650 MG PO ×2 (06:17→20:37)
[2018-11-13 06:51] LABS: Bedside Glucose 53 mg/dL (70-110)
[2018-11-13 06:56] LABS: Absolute Lymphocyte Count 0.99 X10^3/ul (0.83-4.51); Absolute Neutrophil Count 3.2 X10^3/uL (2.0-7.7); Basophil# 0.01 X10^3/uL; Basophil% 0.2 % (0-1); Eosinophil# 0.09 X10^3/uL; Eosinophils% 1.9 % (0-5); Hematocrit 30.4 % (37-47); Lymphocyte # 0.99 X10^3/ul (4.0); Lymphocyte % 20.8 % (19-41); Mean Corp Hgb Conc 29.6 g/gl (32-36); Mean Corpuscular Hgb 32.5 pg (27.0-32.0); Mean Corpuscular Volume 109.7 fL (81-99); Mean Platelet Vol. 10.2 fl (6.2-12.0); Monocyte# 0.44 X10^3/uL; Monocyte% 9.2 % (0-10); Neutrophil # 3.22 X10^3/uL (2.7-7.7); Neutrophil % 67.7 % (47-70); Platelet Count 125 K/mm3 (150-450); RBC Distribution Width SD 53.5 fl (35.1-43.9); Red Blood Count 2.77 M/mm3 (4.2-5.4); White Blood Count 4.8 K/mm3 (4.4-11.0)
[2018-11-13 07:04] LABS: POSITIVE COUNT NO; POSITIVE DIFFERENTIAL NO; POSITIVE MORPHOLOGY NO
[2018-11-13 07:11] LABS: Anion Gap 10 (5-15); BUN 93 mg/dL (7-18); BUN/Creat Ratio 25.8 RATIO (10-20); Calcium,Total 8.9 mg/dL (8.5-10.1); Chloride 105 mmol/L (98-107); EST Glomerular Filtration Rate 13 mL/min (>60); Est Glom Filt Rate - Afr Amer 16 mL/min (>60); Estimated Creatinine Clearance 11.86 ml/min; Glucose 58 mg/dL (74-106); Potassium 4.5 mmol/L (3.5-5.1); Sodium Level 146 mmol/L (136-145)
[2018-11-13 07:47] LABS: Bedside Glucose 98 mg/dL (70-110)
[2018-11-13] MEDS: Aspirin 325 MG Tablet PO (08:31)
[2018-11-13] MEDS: Ferrous Sulfate 325 MG Tablet PO ×3 (08:31→16:37)
[2018-11-13] MEDS: Heparin Injection (Vial) 5,000 UNIT/ML VIAL 5000 UNIT SC ×2 (08:32→21:18)
[2018-11-13] MEDS: Amiodarone 200 MG Tablet PO (08:32)
[2018-11-13] MEDS: Nystatin Powder 15gm Bottle 1 APPLIC TOPICAL ×2 (08:33→21:19)
[2018-11-13] MEDS: Furosemide 40 MG/4 ML Vial 60 MG IV ×2 (08:33→16:37)
[2018-11-13] MEDS: Pantoprazole Sodium 40 MG Tablet PO (08:34)
[2018-11-13] MEDS: Calcitriol 0.25 MCG Capsule PO (08:34)
[2018-11-13] MEDS: Insulin Lispro 100 UNIT/ML INSULN.PEN SC ×2 (11:27→21:18)
[2018-11-13 11:37] LABS: Bedside Glucose 203 mg/dL (70-110)
--- NOTE | 2018-11-13 11:50 | PCM.PN.HOSP ---
Patient Problems: Active and Suspected Problems (Last Reviewed 09/09/18 @ 14:39 by Edna Alcaraz) CHF (congestive heart failure) (Acute) Subjective: Breathing better. Still with LE edema. Vitals/I&O's: Vital Signs Temp Pulse Resp BP Pulse Ox 36.5 C L 50 L 16 128/71 H 99 11/13/18 08:30 11/13/18 08:30 11/13/18 08:30 11/13/18 08:30 11/13/18 08:30 Oxygen Flow Rate (L/min) 3.5 Oxygen Delivery Method Nasal Cannula Weight: 110 kg Body Mass Index (BMI) 41.8 Finger Stick Blood Glucose 500 Intake and Output for Last 24 Hours 11/11/18 11/12/18 11/13/18 23:59 23:59 23:59 Intake Total 415 / 415 720 / 720 460 / 460 Output Total 450 / 450 150 / 150 Balance -35 / -35 720 / 720 310 / 310 General: Alert, No apparent distress HEENT: Atraumatic, Normocephalic Oral: Moist Mucosa, No Gingival or Mucosal Lesions/ Ulcerations Neck: No Nodes, Thyroid Normal Size and Texture Lungs: Clear to auscultation, Normal air movement, No rhonchi, No wheeze Cardiovascular: Regular rate, Regular Rhythm, Normal S1, Normal S2, No murmurs Abdomen: Bowel Sounds Present, Soft, Non Tender, Non-Distended, No Hepato-splenomegaly Extremities: No edema, No Calf Tenderness Skin: No rashes, No breakdown Psych/Mental Status: Normal Affect, Appropriate Laboratory Results 11/12/18 11:59: POC Glucose 266 H 11/12/18 16:39: POC Glucose 220 H 11/12/18 21:34: POC Glucose 166 H 11/13/18 06:30: WBC 4.8, RBC 2.77 L, Hgb 9.0 L, Hct 30.4 L, MCV 109.7 H, MCH 32.5 H, MCHC 29.6 L, RDW 14.0, RDW Differential 53.5 H, Plt Count 125 L, MPV 10.2, Immature Gran % (Auto) 0.200, Neut % (Auto) 67.7, Lymph % (Auto) 20.8, [place] % (Auto) 9.2, Eos % (Auto) 1.9, Baso % (Auto) 0.2, Absolute Neuts (auto) 3.2, Absolute Lymphs (auto) 0.99, Total Counted Not Reportable 11/13/18 06:30: Sodium 146 H, Potassium 4.5, Chloride 105, Carbon Dioxide 31.0, Anion Gap 10, BUN 93 H, Creatinine 3.60 H, Estim Creat Clear Calc 11.86, Est GFR (MDRD) Af Amer 16 L, Est GFR (MDRD) Non-Af 13 L, BUN/Creatinine Ratio 25.8 H, Glucose 58 L, Calcium 8.9 11/13/18 06:47: POC Glucose 53 L 11/13/18 07:34: POC Glucose 98 11/13/18 11:23: POC Glucose 203 H Current Medications Acetaminophen (Tylenol) 650 mg PO Q6H PRN PRN PRN Reason: Mild Pain (1-3)/Temp > 100.7 F Last Admin: 11/13/18 06:17 Dose: 650 mg Amiodarone HCl (Cordarone) 200 mg PO DAILY [facility] Last Admin: 11/13/18 08:32 Dose: 200 mg Aspirin (Aspirin) 325 mg PO DAILY@0800 [facility] Last Admin: 11/13/18 08:31 Dose: 325 mg Atorvastatin Calcium (Lipitor) 40 mg PO QHS [facility] Last Admin: 11/12/18 21:41 Dose: 40 mg Calcitriol (Rocaltrol) 0.25 mcg PO DAILY [facility] Last Admin: 11/13/18 08:34 Dose: 0.25 mcg Clonidine (Catapres) 0.1 mg PO TID [facility] Last Admin: 11/13/18 05:24 Dose: Not Given Ergocalciferol (Vitamin D) 1 unit PO QMONTH [facility] Ferrous Sulfate (Ferrous Sulfate) 325 mg PO TIDCM [facility] Last Admin: 11/13/18 11:27 Dose: 325 mg Furosemide (Lasix) 60 mg IV BIDLX [facility] Last Admin: 11/13/18 08:33 Dose: 60 mg Heparin Sodium (Porcine) (Heparin Na) 5,000 unit SC BID [facility] Last Admin: 11/13/18 08:32 Dose: 5,000 unit Sodium Chloride () 250 mls @ 15 mls/hr IV .[id number] PRN PRN Reason: SALINE FLUSH Insulin Glargine (Lantus (Bkc)) 39 units SC BID [facility] Last Admin: 11/13/18 08:32 Dose: 39 u Insulin Human Lispro (Humalog Kwikpen ([facility])) 0 unit SC ACHS [facility]; Protocol Last Admin: 11/13/18 11:27 Dose: 4 units Magnesium Hydroxide (Milk Of Magnesia) 30 ml PO DAILY PRN PRN Reason: Constipation Nystatin (Mycostatin Powder) 1 applic TOPICAL BID [facility]; Protocol Last Admin: 11/13/18 08:33 Dose: 1 applicatio Ondansetron HCl (Zofran) 4 mg IV Q8H PRN PRN PRN Reason: NAUSEA Pantoprazole Sodium (Protonix) 40 mg PO DAILY [facility] Last Admin: 11/13/18 08:34 Dose: 40 mg Potassium Chloride (K-Dur) 10 meq PO DAILYCM [facility] Last Admin: 11/13/18 08:32 Dose: 10 meq Sodium Chloride () 5 - 15 ml IV UD PRN PRN Reason: SALINE FLUSH Medical Necessity - Tobacco Use Smoking Status: Never smoker Tobacco Use: Non-smoker Assessment/Plan All Active Problems (Last Reviewed 09/09/18 @ 14:39 by Edna Alcaraz) CHF (congestive heart failure) (Acute) Altered mental status, unspecified (Acute) Ulcer with gangrene (Resolved) 1. HFpEF EF 65% from echo on 11/27/17 Weight increased 12 kg since September. Down 2 kg since yesterday. Continue with IV lasix. No EVER-/ARB given CKD Toprol XL held given bradycardia. 2. Bradycardia ongoing Toprol Xl held Continue to monitor off beta-stephania 3. CKD 4 elevated again. baseline Creatinine has been variable. 4. DM2 fair control continue SSI and Lantus 5. DVT proph: SQ heparin. 6. General malaise improved maybe viral DW patient's at bedside. Code Visit Inpatient E&M: 61821 Subs Hosp L2
[2018-11-13] MEDS: cloNIDine HCl 0.1 MG Tablet PO ×2 (13:42→21:17)
--- NOTE | 2018-11-13 14:36 | CASEMGMT ---
Therapy is recommending further skilled therapy for pt at this time. Pt/ are agreeable to [facility] as in the past. Call to Sussy at [facility] and she states they are able to take pt at this time. Order placed for RN, PT/OT at this time. Pt/ updated, voice understanding. Green sheet on chart. SStalbin BENITEZ
[2018-11-13 16:42] LABS: Bedside Glucose 188 mg/dL (70-110)
[2018-11-13] MEDS: Atorvastatin Calcium 40 MG Tablet PO (21:19)
[2018-11-13 21:48] LABS: Bedside Glucose 208 mg/dL (70-110)
[2018-11-13] MEDS: Ipratropium/Albuterol Sulfate 3 ML AMPUL.NEB INHALATION (23:19)
[2018-11-14] VITALS (13 sets, daily range): BP systolic 145–157; BP diastolic 65–76; PULSE 53–67; RESP 16–30; TEMP 36.5–36.9; O2SAT 95–99
[2018-11-14 07:07] LABS: Anion Gap 10 (5-15); BUN 91 mg/dL (7-18); BUN/Creat Ratio 26.8 RATIO (10-20); Calcium,Total 9.1 mg/dL (8.5-10.1); Chloride 105 mmol/L (98-107); EST Glomerular Filtration Rate 14 mL/min (>60); Est Glom Filt Rate - Afr Amer 17 mL/min (>60); Estimated Creatinine Clearance 12.55 ml/min; Glucose 69 mg/dL (74-106); Potassium 4.4 mmol/L (3.5-5.1); Sodium Level 147 mmol/L (136-145)
[2018-11-14 07:07] LABS: Bedside Glucose 55 mg/dL (70-110)
[2018-11-14 07:22] LABS: Bedside Glucose 65 mg/dL (70-110)
[2018-11-14 07:22] LABS: Bedside Glucose 45 mg/dL (70-110)
[2018-11-14] MEDS: Ipratropium/Albuterol Sulfate 3 ML AMPUL.NEB INHALATION ×3 (07:28→20:26)
[2018-11-14 07:37] LABS: Bedside Glucose 88 mg/dL (70-110)
[2018-11-14] MEDS: Ferrous Sulfate 325 MG Tablet PO ×3 (08:13→16:43)
[2018-11-14] MEDS: Amiodarone 200 MG Tablet PO (08:13)
[2018-11-14] MEDS: Aspirin 325 MG Tablet PO (08:13)
[2018-11-14] MEDS: Nystatin Powder 15gm Bottle 1 APPLIC TOPICAL ×2 (08:14→21:31)
[2018-11-14] MEDS: Furosemide 40 MG/4 ML Vial 60 MG IV ×2 (08:14→16:42)
[2018-11-14] MEDS: Pantoprazole Sodium 40 MG Tablet PO (08:14)
[2018-11-14] MEDS: Heparin Injection (Vial) 5,000 UNIT/ML VIAL 5000 UNIT SC ×2 (08:14→21:10)
[2018-11-14] MEDS: Calcitriol 0.25 MCG Capsule PO (08:15)
--- NOTE | 2018-11-14 10:28 | NURSING ---
Pt is visiting with in recliner, call light within reach. Pt denies pain at this time.
[2018-11-14] MEDS: Insulin Lispro 100 UNIT/ML INSULN.PEN SC ×3 (11:12→21:10)
[2018-11-14 11:17] LABS: Bedside Glucose 258 mg/dL (70-110)
[2018-11-14] MEDS: cloNIDine HCl 0.1 MG Tablet PO ×2 (13:15→21:10)
--- NOTE | 2018-11-14 13:22 | NURSING ---
Rustam wraps applied to BLE
--- NOTE | 2018-11-14 16:31 | PCM.PN.HOSP ---
Subjective: Patient was seen and examined. She feels better. She is on 4 L of oxygen. Denies chest pain or shortness of breath. Has been diuresing a lot. Has lost weight. Still has significant amount of edema in the legs. Vitals are stable Objective: Physical Exam General: Alert, Oriented x3, Cooperative, No apparent distress, - - on 3L oxygen HEENT: Atraumatic, PERRLA, EOMI, Normocephalic Oral: Moist Mucosa Neck: Supple Lungs: Decreased air entry in the lower lung zones, crackles present Cardiovascular: Regular rate, Regular Rhythm, Normal S1, Normal S2, No murmurs Abdomen: Bowel Sounds Present, Soft, Non Tender, Non-Distended, No Hepato-splenomegaly Extremities: Edema - bilateral pedaL edema +2, woody Skin: No rashes, No breakdown Musculoskeletal: No Tenderness to Palpation of Joints or Extremities Lymphatic: No Cervical, Supraclavicular, or Inguinal Adenopathy Neurological: Cranial nerves II-XII grossly intact Psych/Mental Status: Normal Affect, Appropriate Vitals/I&O's: Vital Signs Temp Pulse Resp BP Pulse Ox 98.3 F 63 16 150/65 H 95 11/14/18 15:00 11/14/18 15:00 11/14/18 15:00 11/14/18 15:00 11/14/18 15:00 Oxygen Flow Rate (L/min) 3.5 Oxygen Delivery Method Nasal Cannula Weight: 107.8 kg Body Mass Index (BMI) 41.8 Finger Stick Blood Glucose 500 Intake and Output for Last 24 Hours 11/12/18 11/13/18 11/14/18 23:59 23:59 23:59 Intake Total 720 / 720 1047 / 1047 780 / 780 Output Total 650 / 650 Balance 720 / 720 397 / 397 780 / 780 Laboratory Results 11/13/18 16:35: POC Glucose 188 H 11/13/18 21:12: POC Glucose 208 H 11/14/18 05:55: Sodium 147 H, Potassium 4.4, Chloride 105, Carbon Dioxide 32.0, Anion Gap 10, BUN 91 H, Creatinine 3.40 H, Estim Creat Clear Calc 12.55, Est GFR (MDRD) Af Amer 17 L, Est GFR (MDRD) Non-Af 14 L, BUN/Creatinine Ratio 26.8 H, Glucose 69 L, Calcium 9.1 11/14/18 06:45: POC Glucose 45 L 11/14/18 07:01: POC Glucose 55 L 11/14/18 07:16: POC Glucose 65 L 11/14/18 07:32: POC Glucose 88 11/14/18 11:07: POC Glucose 258 H Current Medications Acetaminophen (Tylenol) 650 mg PO Q6H PRN PRN PRN Reason: Mild Pain (1-3)/Temp > 100.7 F Last Admin: 11/13/18 20:37 Dose: 650 mg Albuterol Sulfate (Ventolin Aerosols) 2.5 mg INHALATION Q2H PRN PRN PRN Reason: SOB/Wheezing Albuterol/Ipratropium (Duoneb) 3 ml INHALATION Q6H.RT [facility] Last Admin: 11/14/18 13:28 Dose: 3 ml Amiodarone HCl (Cordarone) 200 mg PO DAILY [facility] Last Admin: 11/14/18 08:13 Dose: 200 mg Aspirin (Aspirin) 325 mg PO DAILY@0800 [facility] Last Admin: 11/14/18 08:13 Dose: 325 mg Atorvastatin Calcium (Lipitor) 40 mg PO QHS [facility] Last Admin: 11/13/18 21:19 Dose: 40 mg Calcitriol (Rocaltrol) 0.25 mcg PO DAILY [facility] Last Admin: 11/14/18 08:15 Dose: 0.25 mcg Clonidine (Catapres) 0.1 mg PO TID [facility] Last Admin: 11/14/18 13:15 Dose: 0.1 mg Ergocalciferol (Vitamin D) 1 unit PO QMONTH [facility] Ferrous Sulfate (Ferrous Sulfate) 325 mg PO TIDCM [facility] Last Admin: 11/14/18 11:12 Dose: 325 mg Furosemide (Lasix) 60 mg IV BIDLX [facility] Last Admin: 11/14/18 08:14 Dose: 60 mg Heparin Sodium (Porcine) (Heparin Na) 5,000 unit SC BID [facility] Last Admin: 11/14/18 08:14 Dose: 5,000 unit Sodium Chloride () 250 mls @ 15 mls/hr IV .[id number] PRN PRN Reason: SALINE FLUSH Insulin Glargine (Lantus (Bkc)) 39 units SC BID [facility] Last Admin: 11/14/18 08:12 Dose: 39 u Insulin Human Lispro (Humalog Kwikpen (Bkc)) 0 unit SC ACHS [facility]; Protocol Last Admin: 11/14/18 11:12 Dose: 4 units Magnesium Hydroxide (Milk Of Magnesia) 30 ml PO DAILY PRN PRN Reason: Constipation Nystatin (Mycostatin Powder) 1 applic TOPICAL BID [facility]; Protocol Last Admin: 11/14/18 08:14 Dose: 1 applicatio Ondansetron HCl (Zofran) 4 mg IV Q8H PRN PRN PRN Reason: NAUSEA Pantoprazole Sodium (Protonix) 40 mg PO DAILY [facility] Last Admin: 11/14/18 08:14 Dose: 40 mg Potassium Chloride (K-Dur) 10 meq PO DAILYCM [facility] Last Admin: 11/14/18 08:13 Dose: 10 meq Sodium Chloride () 5 - 15 ml IV UD PRN PRN Reason: SALINE FLUSH Medical Necessity - Tobacco Use Smoking Status: Never smoker Tobacco Use: Non-smoker Assessment/Plan All Active Problems (Last Reviewed 09/09/18 @ 14:39 by Edna Alcaraz) CHF (congestive heart failure) (Acute) Altered mental status, unspecified (Acute) Ulcer with gangrene (Resolved) 73 year old F with multiple comorbidities significant for CKD stage V/ESRD, off dialysis since February, along with nephrology, chronic diastolic CHF, paroxysmal atrial fibrillation, hypertension, crest syndrome, type II DM, history of stroke(intracerebral bleed) comes in with progressively worsening shortness of breath. 1. Acute on chronic diastolic CHF, last 2D echo in November 2017 showed EF of 65%, moderately enlarged left atrium, moderate to severe mitral annular calcification, mild mike-valvular insufficiency, improving, diuresing well on IV Lasix, will continue with CHF protocol. 2. CKD stage V, was on dialysis, Cr improved to 3.40 from 3.60, labs in am 3. Paroxysmal atrial fibrillation, rate controlled, on amiodarone, aspirin, metoprolol 4. Hypertension, controlled, continue on clonidine, metoprolol 5. Type II DM, fairly controlled BS, on home Lantus regimen, continue on insulin sliding scale with Accu-Cheks 6. 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 History of CVA, history of intracerebral bleed, on aspirin, statin 8. DVT prophylaxis - Heparin SC 9. Code status- DNR-CCA. Code Visit Inpatient E&M: 90995 Subs Hosp L2
--- NOTE | 2018-11-14 16:35 | PN_ITS ---
Subjective: Patient was seen and examined. She feels better. She is on 4 L of oxygen. Denies chest pain or shortness of breath. Has been diuresing a lot. Has lost weight. Still has significant amount of edema in the legs. Vitals are stable Objective: Physical Exam General: Alert, Oriented x3, Cooperative, No apparent distress, - - on 3L oxygen HEENT: Atraumatic, PERRLA, EOMI, Normocephalic Oral: Moist Mucosa Neck: Supple Lungs: Decreased air entry in the lower lung zones, crackles present Cardiovascular: Regular rate, Regular Rhythm, Normal S1, Normal S2, No murmurs Abdomen: Bowel Sounds Present, Soft, Non Tender, Non-Distended, No Hepato- splenomegaly Extremities: Edema - bilateral pedaL edema +2, woody Skin: No rashes, No breakdown Musculoskeletal: No Tenderness to Palpation of Joints or Extremities Lymphatic: No Cervical, Supraclavicular, or Inguinal Adenopathy Neurological: Cranial nerves II-XII grossly intact Psych/Mental Status: Normal Affect, Appropriate Vitals/I&O's: Vital Signs Temp Pulse Resp BP Pulse Ox 98.3 F 63 16 150/65 H 95 11/14/18 15:00 11/14/18 15:00 11/14/18 15:00 11/14/18 15:00 11/14/18 15:00 Oxygen Flow Rate (L/min) 3.5 Oxygen Delivery Method Nasal Cannula Weight: 107.8 kg Body Mass Index (BMI) 41.8 Finger Stick Blood Glucose 500 Intake and Output for Last 24 Hours 11/12/18 11/13/18 11/14/18 23:59 23:59 23:59 Intake Total 720 / 720 1047 / 1047 780 / 780 Output Total 650 / 650 Balance 720 / 720 397 / 397 780 / 780 Laboratory Results 11/13/18 16:35: POC Glucose 188 H 11/13/18 21:12: POC Glucose 208 H 11/14/18 05:55: Sodium 147 H, Potassium 4.4, Chloride 105, Carbon Dioxide 32.0, Anion Gap 10, BUN 91 H, Creatinine 3.40 H, Estim Creat Clear Calc 12.55, Est GFR (MDRD) Af Amer 17 L, Est GFR (MDRD) Non-Af 14 L, BUN/Creatinine Ratio 26.8 H, Glucose 69 L, Calcium 9.1 11/14/18 06:45: POC Glucose 45 L 11/14/18 07:01: POC Glucose 55 L 11/14/18 07:16: POC Glucose 65 L 11/14/18 07:32: POC Glucose 88 11/14/18 11:07: POC Glucose 258 H Current Medications Acetaminophen (Tylenol) 650 mg PO Q6H PRN PRN PRN Reason: Mild Pain (1-3)/Temp > 100.7 F Last Admin: 11/13/18 20:37 Dose: 650 mg Albuterol Sulfate (Ventolin Aerosols) 2.5 mg INHALATION Q2H PRN PRN PRN Reason: SOB/Wheezing Albuterol/Ipratropium (Duoneb) 3 ml INHALATION Q6H.RT [facility] Last Admin: 11/14/18 13:28 Dose: 3 ml Amiodarone HCl (Cordarone) 200 mg PO DAILY [facility] Last Admin: 11/14/18 08:13 Dose: 200 mg Aspirin (Aspirin) 325 mg PO DAILY@0800 [facility] Last Admin: 11/14/18 08:13 Dose: 325 mg Atorvastatin Calcium (Lipitor) 40 mg PO QHS [facility] Last Admin: 11/13/18 21:19 Dose: 40 mg Calcitriol (Rocaltrol) 0.25 mcg PO DAILY [facility] Last Admin: 11/14/18 08:15 Dose: 0.25 mcg Clonidine (Catapres) 0.1 mg PO TID [facility] Last Admin: 11/14/18 13:15 Dose: 0.1 mg Ergocalciferol (Vitamin D) 1 unit PO QMONTH [facility] Ferrous Sulfate (Ferrous Sulfate) 325 mg PO TIDCM [facility] Last Admin: 11/14/18 11:12 Dose: 325 mg Furosemide (Lasix) 60 mg IV BIDLX [facility] Last Admin: 11/14/18 08:14 Dose: 60 mg Heparin Sodium (Porcine) (Heparin Na) 5,000 unit SC BID [facility] Last Admin: 11/14/18 08:14 Dose: 5,000 unit Sodium Chloride () 250 mls @ 15 mls/hr IV .[id number] PRN PRN Reason: SALINE FLUSH Insulin Glargine (Lantus (Bkc)) 39 units SC BID [facility] Last Admin: 11/14/18 08:12 Dose: 39 u Insulin Human Lispro (Humalog Kwikpen (Bkc)) 0 unit SC ACHS [facility]; Protocol Last Admin: 11/14/18 11:12 Dose: 4 units Magnesium Hydroxide (Milk Of Magnesia) 30 ml PO DAILY PRN PRN Reason: Constipation Nystatin (Mycostatin Powder) 1 applic TOPICAL BID [facility]; Protocol Last Admin: 11/14/18 08:14 Dose: 1 applicatio Ondansetron HCl (Zofran) 4 mg IV Q8H PRN PRN PRN Reason: NAUSEA Pantoprazole Sodium (Protonix) 40 mg PO DAILY [facility] Last Admin: 11/14/18 08:14 Dose: 40 mg Potassium Chloride (K-Dur) 10 meq PO DAILYCM [facility] Last Admin: 11/14/18 08:13 Dose: 10 meq Sodium Chloride () 5 - 15 ml IV UD PRN PRN Reason: SALINE FLUSH Medical Necessity - Tobacco Use Smoking Status: Never smoker Tobacco Use: Non-smoker Assessment/Plan All Active Problems (Last Reviewed 09/09/18 @ 14:39 by Edna Alcaraz) CHF (congestive heart failure) (Acute) Altered mental status, unspecified (Acute) Ulcer with gangrene (Resolved) 73 year old F with multiple comorbidities significant for CKD stage V/ESRD, off dialysis since February, along with nephrology, chronic diastolic CHF, paroxysmal atrial fibrillation, hypertension, crest syndrome, type II DM, history of stroke(intracerebral bleed) comes in with progressively worsening shortness of breath. 1. Acute on chronic diastolic CHF, last 2D echo in November 2017 showed EF of 65%, moderately enlarged left atrium, moderate to severe mitral annular calcification, mild mike-valvular insufficiency, improving, diuresing well on IV Lasix, will continue with CHF protocol. 2. CKD stage V, was on dialysis, Cr improved to 3.40 from 3.60, labs in am 3. Paroxysmal atrial fibrillation, rate controlled, on amiodarone, aspirin, metoprolol 4. Hypertension, controlled, continue on clonidine, metoprolol 5. Type II DM, fairly controlled BS, on home Lantus regimen, continue on insulin sliding scale with Accu-Cheks 6. 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 History of CVA, history of intracerebral bleed, on aspirin, statin 8. DVT prophylaxis - Heparin SC 9. Code status- DNR-CCA. Code Visit Inpatient E&M: 54186 Subs Hosp L2
[2018-11-14 16:46] LABS: Bedside Glucose 257 mg/dL (70-110)
[2018-11-14] MEDS: Atorvastatin Calcium 40 MG Tablet PO (21:12)
[2018-11-14 21:42] LABS: Bedside Glucose 330 mg/dL (70-110)
[2018-11-14] MEDS: Acetaminophen 325 MG Tablet 650 MG PO (23:17)
[2018-11-15 00:41] VITALS: BP 149/66; PULSE 63; RESP 22; TEMP 36.3; O2SAT 96
[2018-11-15 03:01] VITALS: PULSE 65
[2018-11-15 03:22] LABS: Bedside Glucose 160 mg/dL (70-110)
[2018-11-15 06:17] VITALS: BP 157/69; PULSE 63; RESP 27; TEMP 37; O2SAT 98
[2018-11-15] MEDS: cloNIDine HCl 0.1 MG Tablet PO (06:22)
[2018-11-15 07:02] LABS: Bedside Glucose 105 mg/dL (70-110)
[2018-11-15 07:11] VITALS: PULSE 60
[2018-11-15 07:28] VITALS: PULSE 62; RESP 20; O2SAT 95
[2018-11-15] MEDS: Ipratropium/Albuterol Sulfate 3 ML AMPUL.NEB INHALATION (07:28)
[2018-11-15 09:07] VITALS: BP 154/75; PULSE 69; RESP 20; TEMP 36.9; O2SAT 98
[2018-11-15] MEDS: Amiodarone 200 MG Tablet PO (09:14)
[2018-11-15] MEDS: Pantoprazole Sodium 40 MG Tablet PO (09:14)
[2018-11-15] MEDS: Ferrous Sulfate 325 MG Tablet PO ×2 (09:14→11:27)
[2018-11-15] MEDS: Aspirin 325 MG Tablet PO (09:14)
[2018-11-15] MEDS: Calcitriol 0.25 MCG Capsule PO (09:15)
[2018-11-15] MEDS: Furosemide 40 MG/4 ML Vial 60 MG IV (09:17)
[2018-11-15] MEDS: Heparin Injection (Vial) 5,000 UNIT/ML VIAL 5000 UNIT SC (09:18)
[2018-11-15] MEDS: Nystatin Powder 15gm Bottle 1 APPLIC TOPICAL (09:18)
--- NOTE | 2018-11-15 10:36 | DCINST_ITS ---
- Discharge Diagnoses Reason(s) for Visit for Discharge Instructions: Heart failure You will use the following diet at home:: Calorie/Carbohydrate Controlled (specify 1200, 1400, etc), Cardiac Your food should be the consistency of: Regular Your liquids should be the consistency of: Regular/Thin Discharge Activity: Return to Normal Activity Additional Instructions: Continue on all your medications as prescribed. Monitor your salt intake especially limit use of can foods, which are high in salt. Continue to weigh yourself everyday, limit your total fluid intake to about 1.5L of fluid a day. Follow-up with your cardiology and nephrology team. You will need to have your blood work done within a couple of days to track kidney function. Continue on your oxygen and incentive spirometer. Allergies/Adverse Reactions: Allergies No Known Allergies Allergy (Verified 11/11/18 09:37) Medications to take at Discharge Aspirin 325 mg PO DAILY@0800 03/01/18 Atorvastatin Calcium 40 mg PO QHS 03/01/18 Clonidine HCl 0.1 mg PO TID 03/01/18 Ergocalciferol [Vitamin D] 1 cap PO QMONTH 03/01/18 Insulin Aspart [Novolog Flexpen] See Protocol SQ 4X/DAY 03/01/18 Insulin Glargine [Lantus SoloStar Pen] 39 units SQ BID 03/01/18 pantoprazole 40 mg tablet,delayed release 40 mg PO QDAY 04/06/18 amiodarone 200 mg tablet 200 mg PO QDAY 04/28/18 calcitriol 0.25 mcg capsule 0.25 mcg PO ONCE 09/09/18 metolazone 5 mg tablet 5 mg PO ONCE 09/09/18 metoprolol succinate ER 25 mg capsule sprinkle, ext. release 24 hr 25 mg PO DAILY 09/09/18 furosemide 40 mg tablet 80 mg PO DAILY tab 10/21/18 potassium chloride ER 10 mEq tablet,extended release 10 meq PO DAILY 10/21/18 Ferrous Sulfate 325 mg PO TIDCM 11/11/18 Acetaminophen [Tylenol Tablet] 650 mg PO Q6H PRN PRN tablet 11/15/18 Nystatin Powder [Mycostatin Powder] 1 applic TOPICAL BID #1 bottle 11/15/18 The following prescriptions were given: Nystatin Powder [Mycostatin Powder] 1 applic TOPICAL BID #1 bottle Primary Care Physician: Zeenat Harp MD [Primary Care Provider] - Please follow up with your Primary Care Physician in: within 1-2 weeks Test Results: Test results from this visit will be discussed in further detail at your follow- up appointment, if applicable. Please Follow Up With: Sussy Bond PA When: within 1 week Proposed Discharge Date: 11/15/18
--- NOTE | 2018-11-15 10:38 | DS.PCM_ITS ---
Discharge Date and Diagnosis Date of Admission: 11/11/18 Date of Discharge: 11/15/18 - Primary Discharge Diagnosis Acute on chronic CHF - Secondary Discharge Diagnosis Chronic Problems (Last Reviewed 09/09/18 @ 14:39 by Edna Alcaraz) Chronic renal insufficiency, stage V (Chronic) Acute on chronic respiratory failure with hypoxia and hypercapnia (Chronic) ESRD (end stage renal disease) on dialysis (Chronic) Rheumatic mitral insufficiency (Chronic) Paroxysmal A-fib (Chronic) Valvular heart disease (Chronic) End stage COPD (Chronic) Pulmonary hypertension (Chronic) HTN (hypertension) (Chronic) 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) S/P craniotomy (Chronic) For intracerebral hemorrhage Morbid obesity (Chronic) Obstructive sleep apnea (Chronic) Untreated Type 2 diabetes mellitus (Chronic) History of cerebral hemorrhage (Chronic) Anemia (Chronic) Aortic stenosis, mild (Chronic) Mitral stenosis (Chronic) mild Stroke (Chronic) Hyperlipidemia (Chronic) Vitamin D deficiency (Chronic) Neuropathic pain (Chronic) Hospital Course and Treatment Imaging Results: Clinical Impression(s) from Imaging Studies Chest X-Ray 11/11/18 11:00 IMPRESSION: Cardiomegaly. CHF. Electronically Signed: Brett Arcos MD at 11:23 EST , Service support , None Operations: None Procedures: None Summary of Care Provided: 73 year old F with multiple comorbidities significant for CKD stage V/ESRD, off dialysis since February, along with nephrology, chronic diastolic CHF, paroxysmal atrial fibrillation, hypertension, crest syndrome, type II DM, history of stroke(intracerebral bleed) comes in with progressively worsening shortness of breath. Patient was seen in the cardiology office and found to be fluid overloaded and brought to the emergency department. Her management was as follows: 1. Acute on chronic diastolic CHF, last 2D echo in November 2017 showed EF of 65%, moderately enlarged left atrium, moderate to severe mitral annular calcification, mild mike-valvular insufficiency, managed well on IV Lasix, patient continued to diurese, was discharged to continue on Lasix at home. I stressed on low-salt diet as the patient has been eating canned foods-to the patient and her 2. CKD stage V, was on dialysis, likely remained stable, stressed the patient is to repeat blood work in the next couple of days and follow-up with both cardiology and nephrology. 3. Paroxysmal atrial fibrillation, rate controlled, on amiodarone, aspirin, metoprolol 4. Hypertension, controlled, continue on clonidine, metoprolol Subjective: On the day of discharge, patient denied any new complaints. She is on 3.5 L of oxygen which is her home oxygen level. Denies any chest pain no dizziness or shortness of breath. Objective: Physical Exam General: Alert, Oriented x3, Cooperative, No apparent distress, - - on 3L oxygen HEENT: Atraumatic, PERRLA, EOMI, Normocephalic Oral: Moist Mucosa Neck: Supple Lungs: Decreased air entry in the lower lung zones, crackles present Cardiovascular: Regular rate, Regular Rhythm, Normal S1, Normal S2, No murmurs Abdomen: Bowel Sounds Present, Soft, Non Tender, Non-Distended, No Hepato- splenomegaly Extremities: Edema - bilateral pedaL edema +2, woody Skin: No rashes, No breakdown Musculoskeletal: No Tenderness to Palpation of Joints or Extremities Lymphatic: No Cervical, Supraclavicular, or Inguinal Adenopathy Neurological: Cranial nerves II-XII grossly intact Psych/Mental Status: Normal Affect, Appropriate - Physical Exam Vital Signs Temp Pulse Resp BP Pulse Ox 98.4 F 69 20 H 154/75 H 98 11/15/18 09:07 11/15/18 09:07 11/15/18 09:07 11/15/18 09:07 11/15/18 09:07 Oxygen Flow Rate (L/min) 3 Oxygen Delivery Method Nasal Cannula Weight: 107.3 kg Body Mass Index (BMI) 41.8 Finger Stick Blood Glucose 500 Intake and Output for Last 24 Hours 11/13/18 11/14/18 11/15/18 23:59 23:59 23:59 Intake Total 1047 / 1047 1665 / 1665 355 / 355 Output Total 650 / 650 550 / 550 400 / 400 Balance 397 / 397 1115 / 1115 -45 / -45 POC Glucose 11/15/18 11/15/18 11/14/18 06:57 03:02 21:08 POC Glucose 105 160 H 330 H 11/14/18 11/14/18 16:38 11:07 POC Glucose 257 H 258 H Discharge Diet: Low fat/ Low Cholesterol, 6 Cup Fluid Restriction, 2000 mg Sodium Diet Discharge Activity: Return to Normal Activity Home Medications: Medications to take at Discharge Aspirin 325 mg PO DAILY@0800 03/01/18 Atorvastatin Calcium 40 mg PO QHS 03/01/18 Clonidine HCl 0.1 mg PO TID 03/01/18 Ergocalciferol [Vitamin D] 1 cap PO QMONTH 03/01/18 Insulin Aspart [Novolog Flexpen] See Protocol SQ 4X/DAY 03/01/18 Insulin Glargine [Lantus SoloStar Pen] 39 units SQ BID 03/01/18 pantoprazole 40 mg tablet,delayed release 40 mg PO QDAY 04/06/18 amiodarone 200 mg tablet 200 mg PO QDAY 04/28/18 calcitriol 0.25 mcg capsule 0.25 mcg PO ONCE 09/09/18 metolazone 5 mg tablet 5 mg PO ONCE 09/09/18 metoprolol succinate ER 25 mg capsule sprinkle, ext. release 24 hr 25 mg PO DAILY 09/09/18 furosemide 40 mg tablet 80 mg PO DAILY tab 10/21/18 potassium chloride ER 10 mEq tablet,extended release 10 meq PO DAILY 10/21/18 Ferrous Sulfate 325 mg PO TIDCM 11/11/18 Acetaminophen [Tylenol Tablet] 650 mg PO Q6H PRN PRN tablet 11/15/18 Nystatin Powder [Mycostatin Powder] 1 applic TOPICAL BID #1 bottle 11/15/18 Following Prescrptions Were Given to Patient: Nystatin Powder [Mycostatin Powder] 1 applic TOPICAL BID #1 bottle Primary Care Physician: Zeenat Harp MD [Primary Care Provider] - Please follow up with your Primary Care Physician in: within 1-2 weeks Please Follow Up With: Sussy Bond PA When: within 1 week Disposition: Home with Home Health Minutes spent on discharge:: 45 Patient Condition:: Stable Medical Necessity - Tobacco Use Smoking Status: Never smoker Tobacco Use: Non-smoker Meaningful Use Info Meaningful Use Diagnoses (Choose all that apply): CHF - CHF EVER/ARB ordered at discharge?: No Reason EVER/ARB not ordered?: Worsening renal disease Documented LVEF (%): 65 Code Visit Inpatient E&M: [id number] Disch Hosp
[2018-11-15 11:02] LABS: Anion Gap 6 (5-15); BUN 83 mg/dL (7-18); Calcium,Total 8.8 mg/dL (8.5-10.1); Chloride 103 mmol/L (98-107); Creatinine, Serum 2.77 mg/dL (0.55-1.02); EST Glomerular Filtration Rate 18 mL/min (>60); Est Glom Filt Rate - Afr Amer 22 mL/min (>60); Estimated Creatinine Clearance 15.41 ml/min; Glucose 239 mg/dL (74-106); Sodium Level 144 mmol/L (136-145)
[2018-11-15] MEDS: Insulin Lispro 100 UNIT/ML INSULN.PEN SC (11:26)
[2018-11-15 11:47] LABS: Bedside Glucose 201 mg/dL (70-110)
--- NOTE | 2018-11-16 10:23 | CCN.REFER ---
AND PATIENT AGREE TO CCN PROGRAM. WEEKLY VISITS TO START THIS WEEK. CCN TO WORK WORK ON CHF EDUCATION, MONITORING VS, AND DIABETES EDUCATION.
--- NOTE | 2018-11-16 15:11 | CASEMGMT ---
ELI STARR DC PHONE CALL. DC DATE: 11/15/18 DC DISPOSITION: Home with Home Health LACE/STRATA: 09/08 Intro role of CM to patient via phone. Pt states she does not have questions re: prescriptions, instructions or follow up. she called PCP office and they will return her call today for appointment time. Pt states she is feeling better, and does not have any care improvement suggestions at this time. Babita CAMPBELL RN ACM
== END 2018-11-15 11:54 | disposition home or self-care (01) | DRG 291 ==
LOC: ED 11:01 → PCU 13:41
PROVIDERS: Admitting Provider Internal Medicine; Emergency Provider Emergency Medicine; Family Provider Family Medicine; PCP Family Medicine; Visit Provider Internal Medicine
DX: I13.2 Hypertensive heart and chronic kidney disease with heart failure and with stage 5 chronic kidney disease, or end stage renal disease (principal); I50.33 Acute on chronic diastolic (congestive) heart failure; J96.21 Acute and chronic respiratory failure with hypoxia; J96.22 Acute and chronic respiratory failure with hypercapnia; N18.5 Chronic kidney disease, stage 5; Z68.41 Body mass index [BMI] 40.0-44.9, adult; D63.1 Anemia in chronic kidney disease; R00.1 Bradycardia, unspecified; I48.0 Paroxysmal atrial fibrillation; Z79.01 Long term (current) use of anticoagulants; J44.9 Chronic obstructive pulmonary disease, unspecified; I27.20 Pulmonary hypertension, unspecified; M34.1 CR(E)ST syndrome; E78.5 Hyperlipidemia, unspecified; E11.22 Type 2 diabetes mellitus with diabetic chronic kidney disease; Z86.73 Personal history of transient ischemic attack (TIA), and cerebral infarction without residual deficits; E66.01 Morbid (severe) obesity due to excess calories; D64.9 Anemia, unspecified; Z99.2 Dependence on renal dialysis; Z66 Do not resuscitate; Z79.4 Long term (current) use of insulin; Z79.82 Long term (current) use of aspirin; Z79.899 Other long term (current) drug therapy
CPT/HCPCS: 36415; 71045; 80048; 81001; 82962; 83880; 84484; 85025; 93005; 94640; 97110; 97162; 97166; 97530; 97802; 99284; 90686; A4216; J1940

== ENCOUNTER → 2018-11-20 15:08 | Outpatient (CLI) | payer MEDICARE, SELFPAY ==
[2018-11-20 14:32] VITALS: BMI 39.8
[2018-11-20 15:30] LABS: Hematocrit 32.7 % (37-47); Hemoglobin 9.6 g/dl (12.0-15.0)
[2018-11-20 16:14] LABS: Anion Gap 8 (5-15); BUN 69 mg/dL (7-18); BUN/Creat Ratio 25.7 RATIO (10-20); Calcium,Total 8.7 mg/dL (8.5-10.1); Chloride 100 mmol/L (98-107); Creatinine, Serum 2.69 mg/dL (0.55-1.02); EST Glomerular Filtration Rate 19 mL/min (>60); Est Glom Filt Rate - Afr Amer 22 mL/min (>60); Glucose 220 mg/dL (74-106); Potassium 4.9 mmol/L (3.5-5.1); Sodium Level 144 mmol/L (136-145)
== END ==
PROVIDERS: Family Provider Family Medicine; PCP Family Medicine; Referring Provider Physician Assistant Medical; Visit Provider Physician Assistant Medical
DX: I50.9 Heart failure, unspecified (principal); N18.5 Chronic kidney disease, stage 5
CPT/HCPCS: 36415; 80048; 85014; 85018

== ENCOUNTER → 2018-11-24 09:47 | Outpatient (CLI) | payer MEDICARE, SELFPAY ==
[2018-11-20 14:32] VITALS: BMI 39.8
[2018-11-24 12:22] LABS: Absolute Lymphocyte Count 0.81 X10^3/ul (0.83-4.51); Absolute Neutrophil Count 4.3 X10^3/uL (2.0-7.7); Basophil# 0.01 X10^3/uL; Basophil% 0.2 % (0-1); Eosinophil# 0.08 X10^3/uL; Eosinophils% 1.4 % (0-5); Hematocrit 29.8 % (37-47); Lymphocyte # 0.81 X10^3/ul (4.0); Lymphocyte % 14.3 % (19-41); Mean Corp Hgb Conc 30.2 g/gl (32-36); Mean Corpuscular Hgb 31.9 pg (27.0-32.0); Mean Corpuscular Volume 105.7 fL (81-99); Mean Platelet Vol. 10.5 fl (6.2-12.0); Monocyte# 0.44 X10^3/uL; Monocyte% 7.8 % (0-10); Neutrophil # 4.31 X10^3/uL (2.7-7.7); Neutrophil % 75.9 % (47-70); Platelet Count 114 K/mm3 (150-450); RBC Distribution Width CV 14.4 % (11.6-14.6); RBC Distribution Width SD 55.2 fl (35.1-43.9); Red Blood Count 2.82 M/mm3 (4.2-5.4); White Blood Count 5.7 K/mm3 (4.4-11.0)
[2018-11-24 12:27] LABS: POSITIVE COUNT NO; POSITIVE DIFFERENTIAL NO; POSITIVE MORPHOLOGY NO
[2018-11-24 13:11] LABS: Anion Gap 7 (5-15); BUN 71 mg/dL (7-18); BUN/Creat Ratio 23.8 RATIO (10-20); Calcium,Total 8.2 mg/dL (8.5-10.1); Chloride 99 mmol/L (98-107); Creatinine, Serum 2.98 mg/dL (0.55-1.02); EST Glomerular Filtration Rate 17 mL/min (>60); Est Glom Filt Rate - Afr Amer 20 mL/min (>60); Glucose 115 mg/dL (74-106); Potassium 5.4 mmol/L (3.5-5.1); Sodium Level 141 mmol/L (136-145); Thyroid Stim Hormone (TSH) 2.91 uIU/mL (0.358-3.74)
== END ==
PROVIDERS: Family Provider Family Medicine; PCP Family Medicine; Visit Provider Family Medicine
DX: I50.9 Heart failure, unspecified (principal)
CPT/HCPCS: 36415; 80048; 84443; 85025

== ENCOUNTER → 2018-11-27 11:55 | Outpatient (CLI) | payer MEDICARE, SELFPAY ==
[2018-11-20 14:32] VITALS: BMI 39.8
[2018-11-27 15:33] LABS: Absolute Lymphocyte Count 0.64 X10^3/ul (0.83-4.51); Basophil# 0.01 X10^3/uL; Basophil% 0.2 % (0-1); Eosinophil# 0.06 X10^3/uL; Eosinophils% 1.2 % (0-5); Hematocrit 32.2 % (37-47); Hemoglobin 9.5 g/dl (12.0-15.0); Lymphocyte # 0.64 X10^3/ul (4.0); Lymphocyte % 12.6 % (19-41); Mean Corp Hgb Conc 29.5 g/gl (32-36); Mean Corpuscular Hgb 32.2 pg (27.0-32.0); Mean Corpuscular Volume 109.2 fL (81-99); Mean Platelet Vol. 10.8 fl (6.2-12.0); Monocyte# 0.33 X10^3/uL; Monocyte% 6.5 % (0-10); Neutrophil # 4.01 X10^3/uL (2.7-7.7); Neutrophil % 79.3 % (47-70); Platelet Count 116 K/mm3 (150-450); RBC Distribution Width CV 14.3 % (11.6-14.6); RBC Distribution Width SD 54.6 fl (35.1-43.9); Red Blood Count 2.95 M/mm3 (4.2-5.4); White Blood Count 5.1 K/mm3 (4.4-11.0)
[2018-11-27 15:36] LABS: POSITIVE COUNT NO; POSITIVE DIFFERENTIAL NO; POSITIVE MORPHOLOGY NO
[2018-11-27 16:12] LABS: Anion Gap 8 (5-15); BUN 79 mg/dL (7-18); BUN/Creat Ratio 26.8 RATIO (10-20); Calcium,Total 8.5 mg/dL (8.5-10.1); Chloride 102 mmol/L (98-107); Creatinine, Serum 2.95 mg/dL (0.55-1.02); EST Glomerular Filtration Rate 17 mL/min (>60); Est Glom Filt Rate - Afr Amer 20 mL/min (>60); Glucose 158 mg/dL (74-106); Potassium 4.8 mmol/L (3.5-5.1); Sodium Level 145 mmol/L (136-145); Thyroid Stim Hormone (TSH) 2.51 uIU/mL (0.358-3.74)
== END ==
PROVIDERS: Family Provider Family Medicine; PCP Family Medicine; Referring Provider Family Medicine; Visit Provider Family Medicine
DX: I50.9 Heart failure, unspecified (principal)
CPT/HCPCS: 36415; 80048; 84443; 85025

== ENCOUNTER → 2018-12-08 08:26 | Outpatient (CLI) | payer MEDICARE, SELFPAY ==
[2018-11-20 14:32] VITALS: BMI 39.8
[2018-12-08 11:50] LABS: Hematocrit 31.6 % (37-47)
[2018-12-08 12:16] LABS: Anion Gap 5 (5-15); BUN 99 mg/dL (7-18); BUN/Creat Ratio 32.8 RATIO (10-20); Calcium,Total 8.7 mg/dL (8.5-10.1); Chloride 100 mmol/L (98-107); Creatinine, Serum 3.02 mg/dL (0.55-1.02); EST Glomerular Filtration Rate 16 mL/min (>60); Est Glom Filt Rate - Afr Amer 20 mL/min (>60); Glucose 111 mg/dL (74-106); Potassium 4.5 mmol/L (3.5-5.1); Sodium Level 145 mmol/L (136-145)
== END ==
PROVIDERS: Family Provider Family Medicine; PCP Family Medicine; Visit Provider Physician Assistant Medical
DX: I48.0 Paroxysmal atrial fibrillation (principal); I38 Endocarditis, valve unspecified; J44.9 Chronic obstructive pulmonary disease, unspecified; I27.20 Pulmonary hypertension, unspecified; I13.2 Hypertensive heart and chronic kidney disease with heart failure and with stage 5 chronic kidney disease, or end stage renal disease; N18.5 Chronic kidney disease, stage 5; I50.9 Heart failure, unspecified
CPT/HCPCS: 36415; 80048; 85014; 85018

== ENCOUNTER → 2018-12-17 09:35 | Outpatient (CLI) | payer MEDICARE, SELFPAY ==
[2018-12-17 08:52] VITALS: BMI 38.9
[2018-12-17 10:31] LABS: Anion Gap 4 (5-15); BUN 66 mg/dL (7-18); BUN/Creat Ratio 26.1 RATIO (10-20); Calcium,Total 8.7 mg/dL (8.5-10.1); Chloride 93 mmol/L (98-107); Creatinine, Serum 2.53 mg/dL (0.55-1.02); EST Glomerular Filtration Rate 20 mL/min (>60); Est Glom Filt Rate - Afr Amer 24 mL/min (>60); Glucose 184 mg/dL (74-106); Sodium Level 139 mmol/L (136-145)
== END ==
PROVIDERS: Family Provider Family Medicine; PCP Family Medicine; Referring Provider Physician Assistant Medical; Visit Provider Physician Assistant Medical
DX: I50.33 Acute on chronic diastolic (congestive) heart failure (principal); N18.5 Chronic kidney disease, stage 5
CPT/HCPCS: 36415; 80048

== ENCOUNTER → 2018-12-28 10:14 | Outpatient (CLI) | payer MEDICARE, SELFPAY ==
[2018-12-17 08:52] VITALS: BMI 38.9
[2018-12-28 12:19] LABS: Absolute Lymphocyte Count 0.71 X10^3/ul (0.83-4.51); Absolute Neutrophil Count 3.6 X10^3/uL (2.0-7.7); Eosinophil# 0.13 X10^3/uL; Eosinophils% 2.7 % (0-5); Hematocrit 31.9 % (37-47); Hemoglobin 9.3 g/dl (12.0-15.0); Lymphocyte # 0.71 X10^3/ul (4.0); Lymphocyte % 14.7 % (19-41); Mean Corp Hgb Conc 29.2 g/gl (32-36); Mean Corpuscular Hgb 30.5 pg (27.0-32.0); Mean Corpuscular Volume 104.6 fL (81-99); Mean Platelet Vol. 10.4 fl (6.2-12.0); Monocyte# 0.42 X10^3/uL; Monocyte% 8.7 % (0-10); Neutrophil # 3.55 X10^3/uL (2.7-7.7); Neutrophil % 73.7 % (47-70); Platelet Count 117 K/mm3 (150-450); RBC Distribution Width CV 13.4 % (11.6-14.6); RBC Distribution Width SD 49.2 fl (35.1-43.9); Red Blood Count 3.05 M/mm3 (4.2-5.4); White Blood Count 4.8 K/mm3 (4.4-11.0)
[2018-12-28 12:30] LABS: POSITIVE COUNT NO; POSITIVE DIFFERENTIAL NO; POSITIVE MORPHOLOGY NO
[2018-12-28 13:04] LABS: ALB/GLOB Ratio 0.9 RATIO (0.9-2.4); AST(SGOT) 11 U/L (15-37); Alanine Aminotransfer ALT/SGPT 12 U/L (13-56); Albumin, Serum 3.5 g/dL (3.2-5.0); Alkaline Phosphatase 60 U/L (45-117); Anion Gap 5 (5-15); BUN 60 mg/dL (7-18); BUN/Creat Ratio 23.4 RATIO (10-20); Calcium,Total 8.5 mg/dL (8.5-10.1); Chloride 94 mmol/L (98-107); Creatinine, Serum 2.56 mg/dL (0.55-1.02); EST Glomerular Filtration Rate 20 mL/min (>60); Est Glom Filt Rate - Afr Amer 24 mL/min (>60); Globulin 3.7 g/dL (2.2-4.2); Glucose 166 mg/dL (74-106); Protein, Total 7.2 g/dL (6.4-8.2); Sodium Level 138 mmol/L (136-145); Thyroid Stim Hormone (TSH) 3.03 uIU/mL (0.358-3.74)
== END ==
PROVIDERS: Family Provider Family Medicine; PCP Family Medicine; Referring Provider Family Medicine; Visit Provider Family Medicine
DX: R00.1 Bradycardia, unspecified (principal); I50.9 Heart failure, unspecified; E11.9 Type 2 diabetes mellitus without complications
CPT/HCPCS: 36415; 80053; 84443; 85025

== ENCOUNTER → 2019-02-17 16:53 | Outpatient (CLI) | payer MEDICARE, SELFPAY ==
[2019-01-19 13:45] VITALS: BMI 38.9
--- NOTE | 2019-02-17 16:55 | RAD_ITS ---
STUDY: X-RAY - LEFT KNEE REASON FOR EXAM: Female, 73 years old. Left knee pain. No known injury. TECHNIQUE: 4 view(s) of the knee. COMPARISON: None. FINDINGS: Normal visualized distal femur. Normal visualized proximal tibia and fibula. Normal proximal tibiofibular articulation. There is no acute fracture, dislocation or destructive osseous pathology. There is mild degenerative arthrosis of the medial femorotibial compartment. Normal lateral femorotibial compartment. There is severe degenerative arthrosis of the patellofemoral articulation. There is no demonstrated joint effusion. The soft tissue structures are unremarkable. RAD/Knee 4 or More Views IMPRESSION: Degenerative arthrosis. Electronically Signed: Jordin Polk DO at 22:32 EDT Tel [phone], Service support ,
[2019-02-17 17:42] LABS: Absolute Lymphocyte Count 1.13 X10^3/ul (0.83-4.51); Basophil# 0.02 X10^3/uL; Basophil% 0.3 % (0-1); Eosinophil# 0.11 X10^3/uL; Eosinophils% 1.6 % (0-5); Hematocrit 31.1 % (37-47); Lymphocyte # 1.13 X10^3/ul (4.0); Lymphocyte % 16.9 % (19-41); Mean Corp Hgb Conc 32.2 g/gl (32-36); Mean Corpuscular Hgb 30.5 pg (27.0-32.0); Mean Corpuscular Volume 94.8 fL (81-99); Mean Platelet Vol. 9.8 fl (6.2-12.0); Monocyte# 0.47 X10^3/uL; Neutrophil # 4.96 X10^3/uL (2.7-7.7); Neutrophil % 74.1 % (47-70); Platelet Count 152 K/mm3 (150-450); RBC Distribution Width CV 14.6 % (11.6-14.6); RBC Distribution Width SD 49.8 fl (35.1-43.9); Red Blood Count 3.28 M/mm3 (4.2-5.4); White Blood Count 6.7 K/mm3 (4.4-11.0)
[2019-02-17 17:44] LABS: POSITIVE COUNT NO; POSITIVE DIFFERENTIAL NO; POSITIVE MORPHOLOGY NO
[2019-02-17 17:56] LABS: Erythrocyte Sedimentation Rate 68 mm/hr (0-30)
[2019-02-17 18:06] LABS: Uric Acid 12.9 mg/dL (2.6-6.0)
== END ==
PROVIDERS: Family Provider Family Medicine; PCP Family Medicine; Referring Provider Family Medicine; Visit Provider Family Medicine
DX: M25.562 Pain in left knee (principal)
CPT/HCPCS: 36415; 73564; 84550; 85025; 85652; 86140

== ENCOUNTER → 2019-02-23 12:03 | Outpatient (CLI) | payer MEDICARE, SELFPAY ==
[2019-01-19 13:45] VITALS: BMI 38.9
[2019-02-23 11:21] VITALS: BMI 32.1
[2019-02-23 12:57] LABS: Hematocrit 35.4 % (37-47); Hemoglobin 11.3 g/dl (12.0-15.0); Mean Corp Hgb Conc 31.9 g/gl (32-36); Mean Corpuscular Hgb 30.6 pg (27.0-32.0); Mean Corpuscular Volume 95.9 fL (81-99); Mean Platelet Vol. 9.8 fl (6.2-12.0); Platelet Count 189 K/mm3 (150-450); RBC Distribution Width CV 14.3 % (11.6-14.6); RBC Distribution Width SD 49.3 fl (35.1-43.9); Red Blood Count 3.69 M/mm3 (4.2-5.4); White Blood Count 10.9 K/mm3 (4.4-11.0)
[2019-02-23 13:00] LABS: Scan Indicated on CBC? Y/N NO
[2019-02-23 13:07] LABS: Protein, Urine (Random) 37.9 mg/dL (<11.9); Protein:Creat Ratio 607 mg/g CRE (0-200)
[2019-02-23 13:13] LABS: Albumin, Serum 3.2 g/dL (3.2-5.0); BUN 80 mg/dL (7-18); BUN/Creat Ratio 29.2 RATIO (10-20); Calcium,Total 8.5 mg/dL (8.5-10.1); Chloride 98 mmol/L (98-107); Creatinine, Serum 2.74 mg/dL (0.55-1.02); EST Glomerular Filtration Rate 18 mL/min (>60); Est Glom Filt Rate - Afr Amer 22 mL/min (>60); Glucose 270 mg/dL (74-106); Phosphorus 4.5 mg/dL (2.5-4.9); Potassium 4.7 mmol/L (3.5-5.1); Sodium Level 140 mmol/L (136-145)
[2019-02-23 13:21] LABS: Vitamin D,25 Hydroxy 37.7 ng/mL (29.95-100.01)
[2019-02-23 13:30] LABS: PTHIN 130.1 pg/mL (18.4-80.1)
== END ==
PROVIDERS: Family Provider Family Medicine; PCP Family Medicine; Referring Provider Internal Medicine Nephrology; Visit Provider Internal Medicine Nephrology
DX: N18.3 Chronic kidney disease, stage 3 (moderate) (principal); R39.15 Urgency of urination
CPT/HCPCS: 36415; 80069; 82306; 82570; 83970; 84156; 85027

== ENCOUNTER → 2019-06-21 09:55 | Outpatient (CLI) | payer MEDICARE, SELFPAY ==
[2019-03-24 09:24] VITALS: BMI 32.1
[2019-06-21 11:44] LABS: Anion Gap 8 (5-15); BUN 127 mg/dL (7-18); BUN/Creat Ratio 19.8 RATIO (10-20); Calcium,Total 7.9 mg/dL (8.5-10.1); Chloride 107 mmol/L (98-107); Creatinine, Serum 6.41 mg/dL (0.55-1.02); EST Glomerular Filtration Rate 7 mL/min (>60); Est Glom Filt Rate - Afr Amer 8 mL/min (>60); Glucose 62 mg/dL (74-106); Potassium 4.4 mmol/L (3.5-5.1); Sodium Level 143 mmol/L (136-145)
== END ==
PROVIDERS: Family Provider Family Medicine; PCP Family Medicine; Referring Provider Internal Medicine Nephrology; Visit Provider Internal Medicine Nephrology
DX: N18.4 Chronic kidney disease, stage 4 (severe) (principal)
CPT/HCPCS: 36415; 80048

== ENCOUNTER 2019-06-21 13:36 | Inpatient (IN) | payer MEDICARE, SELFPAY ==
[2019-06-21] VITALS (10 sets, daily range): BP systolic 138–152; BP diastolic 60–71; PULSE 43–55; RESP 12–24; TEMP 36.1–36.6; O2SAT 93–100; BMI 32.1; BMI 40.6; BMI 40.7; BMI 40.5
[2019-06-21] MEDS: 0.9% Normal Saline 1,000 ML 999 ML IV (14:07)
[2019-06-21 14:17] LABS: Absolute Lymphocyte Count 0.53 X10^3/uL (0.83-4.51); Absolute Neutrophil Count 3.2 X10^3/uL (2.0-7.7); Basophil# 0.02 X10^3/uL; Basophil% 0.5 % (0-1); Eosinophil# 0.09 X10^3/uL; Eosinophils% 2.1 % (0-5); Hematocrit 34.6 % (37-47); Lymphocyte # 0.53 X10^3/ul (4.0); Lymphocyte % 12.4 % (19-41); Mean Corp Hgb Conc 28.9 g/dL (32-36); Mean Corpuscular Hgb 30.7 pg (27.0-32.0); Mean Corpuscular Volume 106.1 fL (81-99); Mean Platelet Vol. 10.4 fl (6.2-12.0); Monocyte# 0.42 X10^3/uL; Monocyte% 9.8 % (0-10); NRBC Flagged by Analyzer 0 % (0-5); Neutrophil # 3.22 X10^3/uL (2.7-7.7); POSITIVE DIFFERENTIAL YES; Platelet Count 106 K/mm3 (150-450); RBC Distribution Width CV 16.1 % (11.6-14.6); RBC Distribution Width SD 62.4 fl (35.1-43.9); Red Blood Count 3.26 M/mm3 (4.2-5.4); White Blood Count 4.3 K/mm3 (4.4-11.0)
[2019-06-21 14:18] LABS: Differential Indicated SCAN CRITERIA MET
[2019-06-21 14:44] LABS: Basophilic Stippling RARE; Hypochromasia RARE; Platelet Estimate SLT DEC (ADEQ)
--- NOTE | 2019-06-21 15:05 | ED.RN ---
BUN [address] CALLED FROM THE LAB DR ARROYO AWARE
[2019-06-21 15:06] LABS: Anion Gap 7 (5-15); BUN 128 mg/dL (7-18); BUN/Creat Ratio 20.1 RATIO (10-20); Calcium,Total 7.9 mg/dL (8.5-10.1); Chloride 107 mmol/L (98-107); Creatinine, Serum 6.38 mg/dL (0.55-1.02); EST Glomerular Filtration Rate 7 mL/min (>60); Est Glom Filt Rate - Afr Amer 8 mL/min (>60); Estimated Creatinine Clearance 7.28 ml/min; Glucose 134 mg/dL (74-106); Potassium 4.6 mmol/L (3.5-5.1); Sodium Level 143 mmol/L (136-145)
--- NOTE | 2019-06-21 15:37 | ED.DCSUM_ITS ---
- ER Visit Summary Date of Service: 06/21/19 Chief Complaint: Decreased kidney function History of Present Illness: The patient is a 73 F who comes in saying that her kidney function is decreased. She follows with Dr. Cantu with nephrology. She had labs done today and shows that her kidney function is worse. She states that she was on dialysis last year from November to February. She improved and was off dialysis. She has a fistula in the left forearm which she is not using. She denies any symptoms. She has been having some slight diarrhea however. Physical Examination: Vital signs reviewed. HEENT exam unremarkable. Heart is regular rate and rhythm without murmurs. Lungs are clear to auscultation. Abdomen is soft and nontender. Extremities reveal no edema. Skin exam normal. Neurologic exam normal. Test Results: White blood cell count 4.3, hemoglobin 10. Platelets are 106. Her BUN is 128 and creatinine 6.38 Emergency Department Course and Treatment: Patient was hydrated with fluids. She had an episode of diarrhea which was foul-smelling and loose. C. difficile will be sent off. She appears to have acute on chronic renal failure. Patient was discussed with the hospitalist who will admit the patient and consult nephrology. Treatment Plan: [] Disposition: Admit Impression: Acute on chronic renal failure, diarrhea This note was generated with [employer] dictation software. It may contain incorrect words, spelling, and punctuation that were not noted in review of the chart prior to signing ED Disposition - Plan for ED Patient: Referrals: Zeenat Harp MD [Primary Care Provider] -
--- NOTE | 2019-06-21 15:37 | HP.PCM_ITS ---
Problem List (1) Clostridium difficile colitis Status: Acute (2) JORGE (acute kidney injury) Status: Acute (3) HLD (hyperlipidemia) Status: Chronic Qualifiers: Hyperlipidemia type: unspecified Qualified Code(s): E78.5 - Hyperlipidemia, unspecified (4) Chronic obstructive pulmonary disease Status: Chronic Qualifiers: COPD type: unspecified COPD Qualified Code(s): J44.9 - Chronic obstructive pulmonary disease, unspecified (5) Chronic respiratory failure with hypoxia Status: Chronic (6) CREST syndrome Status: Chronic (7) Chronic renal disease, stage V Status: Chronic (8) CVA (cerebral vascular accident) Status: Chronic Qualifiers: CVA mechanism: unspecified Qualified Code(s): I63.9 - Cerebral infarction, unspecified (9) Paroxysmal atrial fibrillation Status: Chronic (10) Chronic diastolic (congestive) heart failure Status: Chronic (11) Essential hypertension Status: Chronic (12) Peripheral arterial occlusive disease Status: Chronic History of Present Illness Date of Admission: 06/21/19 Chief Complaint: N/V, worsened renal function-->sent in per Nephrology The patient is a 73 y/o F w/ PMHx: INES non-compliant with CPAP/BIPAP, Morbid Obesity, HTN, HLD, Hx ESRD on temporary HD-->improved w/ now CKD stage IV, Diabetes mellitus type II, PAD, Diastolic CHF, Chronic COPD w/ Chronic Hypoxic Respiratory Failure, Scleroderma/CREST, Hx ICH s/p craniotomy with history of 2 days of severe ongoing profuse diarrhea with no specific abdominal pain or cramping, at least 4-6 times per day with associated poor appetite and intake with no specific nausea or emesis associated without fever or chills prompting eventual ED presentation given abnormal renal function per recognition of her director nurses' registry. Work-up 6.9, heart rate 55, BP 152/63, respiratory rate 18, 97% on 3.5 L nasal cannula, CBC with WC 4.3, hemoglobin 10, platelet 106 with very mild left shift, BMP with BUN/creatinine 128/6.38, glucose 134, stool cultures obtained and initially pending upon ED evaluation however C. difficile returned positive. Upon transition to medical surgical floor patient initiated on oral vancomycin. On admission did discuss case with Dr. Freeman who sent his patient in and he will also evaluate, informed of clostridium to fill infection. 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) Chronic renal disease, stage V (Chronic) CVA (cerebral vascular accident) (Chronic) Secondary pulmonary arterial hypertension (Chronic) Paroxysmal atrial fibrillation (Chronic) Chronic diastolic (congestive) heart failure (Chronic) Essential hypertension (Chronic) Peripheral arterial occlusive disease (Chronic) Medical History: Medical History (Last Reviewed 06/21/19 @ 12:55 by Carlota Vera) Rheumatic mitral valve annular calcification (Chronic) I05.9 Rheumatic mitral insufficiency (Chronic) I05.1 Chronic renal disease, stage V (Chronic) N18.5 CVA (cerebral vascular accident) (Chronic) I63.9 Secondary pulmonary arterial hypertension (Chronic) I27.21 Paroxysmal atrial fibrillation (Chronic) I48.0 Chronic diastolic (congestive) heart failure (Chronic) I50.32 Essential hypertension (Chronic) I10 Peripheral arterial occlusive disease (Chronic) I77.9 Bradycardia R00.1 COPD (chronic obstructive pulmonary disease) J44.9 CREST variant of scleroderma M34.1 Cerebral hemorrhage Onset Date: 03/2016 I61.9 Depression F32.9 Left atrial enlargement I51.7 Legally blind H54.8 Lung nodule R91.1 Neuropathic pain M79.2 Obesity E66.9 Obstructive sleep apnea G47.33 Rheumatic mitral stenosis I05.0 Type 2 diabetes mellitus E11.9 Vitamin D deficiency E55.9 ESRD (end stage renal disease) on dialysis (Resolved) N18.6, Z99.2 Aortic stenosis, mild (Inactive) I35.0 Chronic renal insufficiency, stage V (Inactive) N18.5 Palpitations R00.2 Allergies No Known Allergies Allergy (Verified 06/21/19 12:56) Home Medications: Ambulatory Orders Medication Instructions Recorded Insulin Aspart [Novolog Flexpen] See Protocol SQ 4X/DAY 03/01/18 pantoprazole 40 mg tablet,delayed 40 mg PO DAILY 04/06/18 release calcitriol 0.25 mcg capsule 0.25 mcg PO DAILY 09/09/18 Acetaminophen [Tylenol Tablet] 650 mg PO Q6H PRN PRN tab 11/15/18 Nystatin Powder [Mycostatin Powder] 1 applic TOPICAL BID #1 bottle 11/15/18 insulin glargine (U-100) 100 25 unit SC BID ml 12/15/18 unit/mL subcutaneous solution metolazone 5 mg tablet 5 mg PO MOSA tab 12/17/18 metoprolol succinate ER 25 mg 12.5 mg PO DAILY tab 12/30/18 tablet,extended release 24 hr aspirin 325 mg tablet 325 mg PO BID tab 02/23/19 escitalopram 10 mg tablet 10 mg PO DAILY 02/23/19 furosemide 80 mg tablet 80 mg PO DAILY 02/23/19 Amiodarone HCl 200 mg PO DAILY 06/21/19 Atorvastatin Calcium [Lipitor] 40 mg PO DAILY 06/21/19 Clonidine HCl [Catapres] 0.1 mg PO TID 06/21/19 Surgical History: Surgical History (Last Reviewed 06/21/19 @ 12:55 by Carlota Vera) Presence of surgically created arteriovenous shunt for hemodialysis Onset Date: ~03/2018 Z99.2 H/O craniotomy Z98.890 S/P Achilles tendon repair Z98.890 S/P carpal tunnel release Z98.890 S/P dialysis catheter insertion Z95.828, Z99.2 S/P laparoscopic cholecystectomy Z90.49 S/P rotator cuff repair Z98.890 S/P tonsillectomy Z90.89 Surgical History: cholecystectomy, rotator cuff repair, tonsillectomy, - - Status post craniotomy, dialysis catheter insertion and AVF, status post Achilles tendon repair, bilateral carpal tunnel repair/release Psychiatric History: No pertinent psych hx 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 Lives: Spouse/ Significant Other Smoking Status: Never smoker Tobacco Use: Non-smoker Alcohol: None Drugs: None - *Family History Maternal Family History: Family History (Last Reviewed 06/21/19 @ 12:55 by Carlota Vera) Mother Cancer Diabetes Kidney disease Father Heart disease Diabetes Kidney disease History Items: Cancer, Diabetes, Renal Disease Paternal Family History: Family History (Last Reviewed 06/21/19 @ 12:55 by Carlota Vera) Mother Cancer Diabetes Kidney disease Father Heart disease Diabetes Kidney disease History Items: Diabetes, Heart Disease, Renal Disease Review of Systems Constitutional: Reports: Anorexia, Malaise, Weakness, Fatigue. Denies: Chills, Fever, Weight Change HEENT: Denies: Head Aches, Sinus Congestion, Sinus Drainage Cardiovascular: Denies: Chest Pain, Palpitations Respiratory: Denies: Cough, Shortness of breath at rest, Sputum production Gastrointestinal: Reports: Diarrhea, Nausea, Vomiting. Denies: Abdominal Pain Genitourinary: Denies: Dysuria Musculoskeletal: Reports: Joint Pain. Denies: Joint Tenderness Skin: Denies: Rash, Wounds Neurological: Reports: Focal weakness. Denies: Numbness, Tingling Psychiatric: Denies: Anxiety, Depression, Homicidal Ideations, Suicidal Ideations Hematologic/ Lymphatic: Reports: Anemia, Easy Bruising, Easy Bleeding VTE Information - Inpt Only VTE Present on Admission: No VTE Mechan Device Prophylaxis: SCD's VTE Pharm Prophylaxis ordered?: Yes Patient Problems: Active and Suspected Problems (Last Reviewed 06/21/19 @ 12:55 by Carlota Vera) Clostridium difficile colitis (Acute) JORGE (acute kidney injury) (Acute) Subjective: Laying in the ED bed, fatigued and ill-appearing. Objective: Physical Examination: General: awake, alert, oriented x 3 and cooperative, laying in the bed, fatigued and ill-appearing. Skin: normal color, turgor, no icterus, cyanosis except occasional ecchymoses to extremity, very staged. HEENT: AT/NC, EOMI, PERRLA, dry MM, no carotid bruits or JVD noted; however habitus with thickened neck makes examination difficult. Lungs: Diminished breath sounds, distant breath sounds given habitus, moderate decrease BL bases, no rales, ronchi or wheezing. Heart: Mildly bradycardic with regular rhythm; no gallop, rub audible. Abdomen: soft, morbidly obese, NTTP with no rebound, guarding, difficult to assess distention given morbidly obese habitus, mildly hyperactive bowel sounds, difficult to assess HSM secondary to morbidly obses status. Extremities: no cyanosis, clubbing, bilateral lower extremity pedal edema ankle to distal anderson. Neurological: patient awake, alert, oriented x 3; cognitive function intact; pupils equally reactive to light and accomodation; cranial nerves II-XII grossly normal, moving all 4 extremities although notably debilitated, status post CVA prior with history of ICH prior, strength severely global decrease secondary to acute presentation and underlying chronic comorbidities. Psychiatric: affect appears fatigued, flat, no acute evidence of depressive or anxiety feelings. - Physical Exam Vital Signs Temp Pulse Resp BP Pulse Ox 96.9 F L 54 L 18 152/63 H 97 06/21/19 13:37 06/21/19 13:37 06/21/19 13:37 06/21/19 13:37 06/21/19 13:37 Oxygen Flow Rate (L/min) 3.5 Oxygen Delivery Method Nasal Cannula Weight: 244 lb 7.882 oz Body Mass Index (BMI) 40.6 Finger Stick Blood Glucose 500 Laboratory Tests Past 24 Hrs 06/21/19 06/21/19 14:05 14:05 WBC 4.3 L RBC 3.26 L Hgb 10.0 L Hct 34.6 L MCV 106.1 H MCH 30.7 MCHC 28.9 L RDW Std Deviation 62.4 H RDW Coeff of Norma 16.1 H Plt Count 106 L MPV 10.4 Immature Gran % (Auto) 0.200 Neut % (Auto) 75.0 H Lymph % (Auto) 12.4 L Dickey % (Auto) 9.8 Eos % (Auto) 2.1 Baso % (Auto) 0.5 Absolute Neuts (auto) 3.2 Absolute Lymphs (auto) 0.53 L Nucleated RBC % 0 Diff Path Review May foll Platelet Estimate SLT DEC Hypochromasia RARE Basophilic Stippling RARE Sodium 143 Potassium 4.6 Chloride 107 Carbon Dioxide 29.0 Anion Gap 7 BUN 128 H* Creatinine 6.38 H Estim Creat Clear Calc 7.28 Est GFR (MDRD) Af Amer 8 L Est GFR (MDRD) Non-Af 7 L BUN/Creatinine Ratio 20.1 H Glucose 134 H Calcium 7.9 L Assessment/Plan All Active Problems (Last Reviewed 06/21/19 @ 12:55 by Carlota Vera) Clostridium difficile colitis (Acute) JORGE (acute kidney injury) (Acute) Acute on chronic respiratory failure with hypoxia and hypercapnia (Resolved) ESRD (end stage renal disease) on dialysis (Resolved) History of Coumadin therapy (Resolved) Ulcer with gangrene (Resolved) The patient is a 73 y/o F w/ PMHx: INES non-compliant with CPAP/BIPAP, Morbid Obesity, HTN, HLD, Hx ESRD on temporary HD-->improved w/ now CKD stage IV, Diabetes mellitus type II, PAD, Diastolic CHF, Chronic COPD w/ Chronic Hypoxic Respiratory Failure, Scleroderma/CREST, Hx ICH s/p craniotomy with history of 2 days of severe ongoing profuse diarrhea with no specific abdominal pain or cramping, at least 4-6 times per day with associated poor appetite and intake with no specific nausea or emesis associated without fever or chills prompting eventual ED presentation given abnormal renal function per recognition of her director nurses' registry. (1) N/V/D, secondary to Clostridium difficile colitis: Work-up 6.9, heart rate 55, BP 152/63, respiratory rate 18, 97% on 3.5 L nasal cannula, CBC with WC 4.3, hemoglobin 10, platelet 106 with very mild left shift, BMP with BUN/creatinine 128/6.38, glucose 134, stool cultures obtained and initially pending upon ED evaluation however C. difficile returned positive. Will admit to medical surgical floor, allow clear liquids and advance diet as tolerated with PRN pain and nausea regimen, initiated on oral vancomycin and given high risk for recurrence and susceptibility will also request infectious disease consult, continue to evaluate renal function with pending nephrology consultation as noted #2, PT, OT and case measurement consultations for discharge planning. (2) Acute kidney injury on CKD stage IV, previously ESRD on HD: Secondary to GI losses. Admission BUN/Cr 128/6.38, prior baseline creatinine noted to be 2.6- 2.9. Will continue to hydrate, hold nephrotoxic medications and repeat chemistry in AM. If no improvement would plan FeNa and renal ultrasound assessment but given likely etiology is C. difficile infection expect improvement. Campus Rep consulted and pending.. (3) Hypertension: We will hold patient Lasix, metolazone regimen, continue metoprolol, clonidine with hold parameters, PRN hydralazine. (4) Hyperlipidemia: Continue home statin regimen. (5) Scleroderma, CREST: Encouraged continue pulmonary outpatient follow-up. (6) Diabetes mellitus type II: Hold oral home regimen, continue home insulin regimen, clears with advance diet as tolerated to ADA diet, accu checks w/ ISS. (7) Chronic COPD w/ chronic hypoxic respiratory failure: To new chronic home oxygen supplementation, ATC duonebs, PRN albuterol, HOB, IS parameters. (8) Chronic Diastolic CHF: Compensated appearance, will maintain on aspirin, statin, metoprolol, holding Lasix and metolazone given severe acute kidney injury presentation. (9) Morbid Obesity: Weight loss and lifestyle changes encouraged, nutrition consulted. (10) Chronic macrocytic anemia: Admission hemoglobin 10, MCV 106.1, baseline level 9-10, stable, trend. (11) PAF: We will maintain on metoprolol, not anticoagulated, continue amiodarone. (12) Anxiety and depression: We will continue home escitalopram regimen. (13) GERD: Hold patient PPI given acute clostridium to fill infection. (14) DVT Prophylaxis: SCDs, heparin. 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 Discussed CODE status at length including difference between FULL code, DNR-CCA and DNR-CC status. Following discussions about the differences in these status, requested Full Code status. Advanced Care Planning Face to Face Time: 16 minutes. Code Visit Inpatient E&M: 88478 Init Hosp L3 Procedures: 55907 Advncd Care Plan 30 Min
--- NOTE | 2019-06-21 16:29 | ED.RN ---
CALL RECEIVED FROM LAB THAT PATIENT IS POSITIVE FOR C-DIFF, MS3 MADE AWARE.
[2019-06-21] MEDS: 0.9% Normal Saline 1,000 ML 150 ML IV ×2 (17:14→22:24)
[2019-06-21 17:16] LABS: Phosphorus 7.8 mg/dL (2.5-4.9)
[2019-06-21] MEDS: Aspirin 325 MG Tablet PO (17:24)
[2019-06-21] MEDS: Insulin Lispro 100 UNIT/ML INSULN.PEN SC (17:34)
[2019-06-21 17:35] LABS: Bedside Glucose 157 mg/dL (70-110)
--- NOTE | 2019-06-21 19:46 | RAD_ITS ---
STUDY: X-RAY CHEST REASON FOR EXAM: Female, 73 years old. Shortness of breath. TECHNIQUE: Single AP portable view of the chest. COMPARISON: November 11, 2018. FINDINGS: The lungs are hypoexpanded. There is diffuse perihilar interstitial changes throughout both lungs. Question left pleural effusion. The heart is enlarged. Normal mediastinum and jose f. There is central pulmonary vascular prominence. Normal visualized aortic arch and descending thoracic aorta. The thoracic spine is obscured by the mediastinum. Normal visualized ribs, clavicles, and shoulders. There is no demonstrated abnormality of the visualized soft tissue structures of the upper abdomen. RAD/Chest 1 View (Portable) IMPRESSION: CHF. Electronically Signed: Jordin Polk DO at 20:34 EDT Tel [phone], Service support ,
--- NOTE | 2019-06-21 21:19 | NURSING ---
Called respiratory at [phone] to obtain ABGs for this pt. Leslie BENITEZ had been trying different numbers given to her by the bending press operator but had been unable to reach them.
--- NOTE | 2019-06-21 21:42 | CPS ---
Critital Values on ABG of Ph 7.17 and PCO2 [address] French
[2019-06-21 21:55] LABS: Blood Gas Specimen Type VEN; O2 Delivery Device Nasal Can; SITE R Radial; Time Given 2142; VBG BASE EXCESS -2 mmol/L (-1.0-3.5); VBG Bicarbonate 27 mmol/L (22-26); VBG Oxygen Content 29 mmol/L (23-33); VBG PO2 49 mmHg (25-40); VBG SO2 72 % (50-70); VBG pCO2 73.1 mmHg (41-51); VBG pH 7.17 (7.32-7.42)
[2019-06-21 21:56] LABS: Bedside Glucose 153 mg/dL (70-110)
[2019-06-21] MEDS: Heparin Injection (Vial) 5,000 UNIT/ML VIAL 5000 UNIT SC (22:05)
[2019-06-21] MEDS: Nystatin Powder 15gm Bottle 1 APPLIC TOPICAL (22:08)
[2019-06-21] MEDS: cloNIDine HCl 0.1 MG Tablet PO (22:08)
[2019-06-21] MEDS: Atorvastatin Calcium 40 MG Tablet PO (22:08)
[2019-06-21] MEDS: Albuterol 2.5 MG/3 ML VIAL.NEB. INHALATION (22:20)
--- NOTE | 2019-06-21 22:43 | PCM.PN.BLA ---
Progress Note Reportedly patient is more drowsy and has Rales at the bases. Impression of chest x-ray showed congestive heart failure. Will give a one-time dose of Lasix 80 mg IV x1. ABG showed respiratory acidosis. Patient has been placed on BiPAP.
[2019-06-21] MEDS: Furosemide 100 MG/10 ML Vial 80 MG IV (22:59)
--- NOTE | 2019-06-21 23:40 | CPS ---
Critical value on ABG, PaCO2 of [address] French.
[2019-06-22] VITALS (21 sets, daily range): BP systolic 116–147; BP diastolic 56–77; PULSE 43–56; RESP 16–26; TEMP 36.4–37.1; O2SAT 94–100
[2019-06-22] LABS: Allen Test POS; Base Excess -1 mmol/L (-2 to +2); Bicarbonate 27.1 mmol/L (22-26); Blood Gas Specimen Type ART; EPAP 8; FI02 40; IPAP 20; PO2 105 mmHG (75-100); RR 12; SITE R Radial; SO2 96 % (95-99); Time Given 2340; Total Carbon Dioxide 29 mmol/L; pCO2 68.7 mmHg (35-45)
--- NOTE | 2019-06-22 03:03 | CPS ---
Addendum entered by Jeevan Delgadillo 06/22/19 03:04: Original Note: increased BiPaP pressures for low tidal volumes to 22/12, RR 16 and Decreased FiO2 to 30%
--- NOTE | 2019-06-22 05:08 | EKG12_ITS ---
Test Reason : BRADYCARDIA Blood Pressure : / mmHG Vent. Rate : 045 BPM Atrial Rate : 045 BPM P-R Int : 204 ms QRS Dur : 110 ms QT Int : 554 ms P-R-T Axes : 035 008 041 degrees QTc Int : 479 ms Sinus bradycardia Low voltage QRS Nonspecific ST and T wave abnormality Prolonged QT Abnormal ECG Confirmed by JOSE ALEJANDRO LOONEY, MIKE ([id number]), newspaper photo editor MELISA MARTINEZ ([id number]) on 06/23/2019 2:29:04 PM Referred By: Noris Dang Confirmed By:MIKE BLOUNT MD
[2019-06-22] MEDS: 0.9% Normal Saline 1,000 ML 150 ML IV (05:15)
--- NOTE | 2019-06-22 05:31 | PCM.PN.BLA ---
Progress Note Patient with first-degree AV block on 12-lead EKG. Heart rate of 45. Will stop Toprol-XL. We will put parameters on Clonidine.
[2019-06-22 06:00] LABS: Absolute Lymphocyte Count 0.72 X10^3/uL (0.83-4.51); Absolute Neutrophil Count 2.2 X10^3/uL (2.0-7.7); Basophil# 0.02 X10^3/uL; Basophil% 0.6 % (0-1); Eosinophil# 0.08 X10^3/uL; Eosinophils% 2.3 % (0-5); Hematocrit 32.2 % (37-47); Hemoglobin 9.1 g/dL (12.0-15.0); Lymphocyte # 0.72 X10^3/ul (4.0); Lymphocyte % 20.6 % (19-41); Mean Corp Hgb Conc 28.3 g/dL (32-36); Mean Corpuscular Hgb 30.2 pg (27.0-32.0); Mean Platelet Vol. 10.6 fl (6.2-12.0); Monocyte# 0.45 X10^3/uL; Monocyte% 12.9 % (0-10); NRBC Flagged by Analyzer 0 % (0-5); Neutrophil # 2.22 X10^3/uL (2.7-7.7); Neutrophil % 63.3 % (47-70); Platelet Count 98 K/mm3 (150-450); RBC Distribution Width CV 16.6 % (11.6-14.6); RBC Distribution Width SD 64.4 fl (35.1-43.9); Red Blood Count 3.01 M/mm3 (4.2-5.4); White Blood Count 3.5 K/mm3 (4.4-11.0)
[2019-06-22 06:42] LABS: ALB/GLOB Ratio 0.7 RATIO (0.9-2.4); AST(SGOT) 6 U/L (15-37); Alanine Aminotransfer ALT/SGPT 10 U/L (13-56); Albumin, Serum 2.8 g/dL (3.2-5.0); Alkaline Phosphatase 63 U/L (45-117); Anion Gap 10 (5-15); BUN 126 mg/dL (7-18); BUN/Creat Ratio 20.8 RATIO (10-20); Calcium,Total 7.5 mg/dL (8.5-10.1); Chloride 112 mmol/L (98-107); Creatinine, Serum 6.06 mg/dL (0.55-1.02); EST Glomerular Filtration Rate 7 mL/min (>60); Est Glom Filt Rate - Afr Amer 9 mL/min (>60); Estimated Creatinine Clearance 7.66 ml/min; Globulin 3.8 g/dL (2.2-4.2); Glucose 85 mg/dL (74-106); Potassium 4.4 mmol/L (3.5-5.1); Protein, Total 6.6 g/dL (6.4-8.2); Sodium Level 148 mmol/L (136-145)
[2019-06-22 07:01] LABS: Bedside Glucose 70 mg/dL (70-110)
--- NOTE | 2019-06-22 09:14 | PCM.PROGNOTE ---
Patient Problems: Active and Suspected Problems (Last Updated 06/22/19 @ 09:17 by Fahad Sesay MD) Clostridium difficile colitis (Acute) JORGE (acute kidney injury) (Acute) Subjective: Chief complaint: Follow-up after admission for acute kidney injury on top of stage IV chronic kidney disease, acute C. difficile colitis and acute on chronic hypercapnic respiratory failure. Patient seen and examined. Overnight, patient became more short of breath and lethargic. ABG revealed respiratory acidosis and CO2 retention, PCO2 was 68. Patient was given 1 dose of IV Lasix 80 mg and start on BiPAP. This morning, she stated that her breathing is better, remained on BiPAP. Denied abdominal pain, nausea vomiting. Denies diarrhea. Denies chest pain. She is afebrile, bradycardic, blood pressure stable, pulse ox is maintained on BiPAP. - Physical Exam General: Alert, Oriented x3, Cooperative, - - Moderately short of breath. HEENT: Atraumatic, PERRLA, EOMI, Normocephalic Oral: Moist Mucosa, No Gingival or Mucosal Lesions/ Ulcerations Neck: Supple, No JVD, Negative Carotid Bruits, Trachea Midline, Thyroid Normal Size and Texture Lungs: No wheeze, Diminished, Rales, Rhonchi, Short of Breath, - - Markedly decreased sounds at the bases, faint crackles bilaterally, rhonchi. Cardiovascular: Regular rate, Regular Rhythm, Normal S1, Normal S2, PMI Normal, Bradycardic Abdomen: Bowel Sounds Present, Soft, Non Tender, Non-Distended, No Hepato-splenomegaly, Obese Extremities: No clubbing, No cyanosis, Edema - + Edema. Skin: No rashes, No breakdown Lymphatic: No Cervical, Supraclavicular, or Inguinal Adenopathy Neurological: Cranial nerves II-XII grossly intact, Motor Exam 5/5 strength throughout Psych/Mental Status: Normal Affect, Appropriate, Alert and oriented to time, place, person, mood and affect Vital Signs Temp Pulse Resp BP Pulse Ox 98.1 F 48 L 20 H 145/77 H 100 06/22/19 08:50 06/22/19 08:50 06/22/19 08:50 06/22/19 08:50 06/22/19 08:50 Oxygen Flow Rate (L/min) 4 Oxygen Delivery Method Bi-pap Weight: 243 lb 9.773 oz Body Mass Index (BMI) 40.5 Finger Stick Blood Glucose 500 Intake and Output for Last 24 Hours 06/20/19 06/21/19 06/22/19 23:59 23:59 23:59 Intake Total 1824 1385 / 1385 Balance 1824 1385 / 1385 Microbiology Past 72 Hours 06/21/19 14:20 Stool Lactoferrin - Final Stool 06/21/19 14:20 C. difficile DNA Amplification - Final Stool Toxigenic C. difficile DNA Laboratory Tests Past 24 Hrs 06/21/19 06/21/19 06/21/19 14:05 14:05 14:05 WBC 4.3 L RBC 3.26 L Hgb 10.0 L Hct 34.6 L MCV 106.1 H MCH 30.7 MCHC 28.9 L RDW Std Deviation 62.4 H RDW Coeff of Norma 16.1 H Plt Count 106 L MPV 10.4 Immature Gran % (Auto) 0.200 Neut % (Auto) 75.0 H Lymph % (Auto) 12.4 L [place] % (Auto) 9.8 Eos % (Auto) 2.1 Baso % (Auto) 0.5 Absolute Neuts (auto) 3.2 Absolute Lymphs (auto) 0.53 L Nucleated RBC % 0 Diff Path Review May foll Platelet Estimate SLT DEC Hypochromasia RARE Basophilic Stippling RARE Specimen Type Sample Site pH Bicarbonate Actual POC Total CO2 Base Excess O2 Saturation O2 % ABG pCO2 ABG pO2 Johnny Test VBG pH VBG pO2 VBG O2 Sat (Calc) VBG O2 Content VBG Base Excess POC Mix VBG pCO2 Pt Tmp Respiration Rate O2 Delivery Device Liter Flow EPAP IPAP Blood Gas Notified Whom Blood Gas Notified Time Sodium 143 Potassium 4.6 Chloride 107 Carbon Dioxide 29.0 Anion Gap 7 BUN 128 H* Creatinine 6.38 H Estim Creat Clear Calc 7.28 Est GFR (MDRD) Af Amer 8 L Est GFR (MDRD) Non-Af 7 L BUN/Creatinine Ratio 20.1 H Glucose 134 H Calcium 7.9 L Phosphorus 7.8 H Magnesium 2.0 Total Bilirubin AST ALT Alkaline Phosphatase Total Protein Albumin Globulin Albumin/Globulin Ratio 06/21/19 06/21/19 06/22/19 21:47 23:52 05:42 WBC 3.5 L RBC 3.01 L Hgb 9.1 L Hct 32.2 L MCV 107.0 H MCH 30.2 MCHC 28.3 L RDW Std Deviation 64.4 H RDW Coeff of Norma 16.6 H Plt Count 98 L MPV 10.6 Immature Gran % (Auto) 0.300 Neut % (Auto) 63.3 Lymph % (Auto) 20.6 [place] % (Auto) 12.9 H Eos % (Auto) 2.3 Baso % (Auto) 0.6 Absolute Neuts (auto) 2.2 Absolute Lymphs (auto) 0.72 L Nucleated RBC % 0 Diff Path Review Platelet Estimate Hypochromasia Basophilic Stippling Specimen Type OLIVIA ART Sample Site R Radial R Radial pH 7.20 L Bicarbonate Actual 27.1 H POC Total CO2 29 Base Excess -1 O2 Saturation 96 O2 % 40 ABG pCO2 68.7 H* ABG pO2 105 H Johnny Test POS VBG pH 7.17 L* VBG pO2 49 H VBG O2 Sat (Calc) 72 H VBG O2 Content 29 VBG Base Excess -2 L POC Mix VBG pCO2 Pt Tmp 73.1 H* Respiration Rate 12 O2 Delivery Device Nasal Can Bi / C PAP Liter Flow 4.0 EPAP 8 IPAP 20 Blood Gas Notified Whom HOSP MD HOSP MD Blood Gas Notified Time 2142 2340 Sodium Potassium Chloride Carbon Dioxide Anion Gap BUN Creatinine Estim Creat Clear Calc Est GFR (MDRD) Af Amer Est GFR (MDRD) Non-Af BUN/Creatinine Ratio Glucose Calcium Phosphorus Magnesium Total Bilirubin AST ALT Alkaline Phosphatase Total Protein Albumin Globulin Albumin/Globulin Ratio 06/22/19 05:42 WBC RBC Hgb Hct MCV MCH MCHC RDW Std Deviation RDW Coeff of Norma Plt Count MPV Immature Gran % (Auto) Neut % (Auto) Lymph % (Auto) [place] % (Auto) Eos % (Auto) Baso % (Auto) Absolute Neuts (auto) Absolute Lymphs (auto) Nucleated RBC % Diff Path Review Platelet Estimate Hypochromasia Basophilic Stippling Specimen Type Sample Site pH Bicarbonate Actual POC Total CO2 Base Excess O2 Saturation O2 % ABG pCO2 ABG pO2 Johnny Test VBG pH VBG pO2 VBG O2 Sat (Calc) VBG O2 Content VBG Base Excess POC Mix VBG pCO2 Pt Tmp Respiration Rate O2 Delivery Device Liter Flow EPAP IPAP Blood Gas Notified Whom Blood Gas Notified Time Sodium 148 H Potassium 4.4 Chloride 112 H Carbon Dioxide 26.0 Anion Gap 10 BUN 126 H* Creatinine 6.06 H Estim Creat Clear Calc 7.66 Est GFR (MDRD) Af Amer 9 L Est GFR (MDRD) Non-Af 7 L BUN/Creatinine Ratio 20.8 H Glucose 85 Calcium 7.5 L Phosphorus Magnesium Total Bilirubin 0.30 AST 6 L ALT 10 L Alkaline Phosphatase 63 Total Protein 6.6 Albumin 2.8 L Globulin 3.8 Albumin/Globulin Ratio 0.7 L POC Glucose 06/22/19 06/21/19 06/21/19 06:52 21:52 17:26 POC Glucose 70 153 H 157 H Clinical Impression(s) from Imaging Studies Chest X-Ray 06/21/19 19:46 IMPRESSION: CHF. Electronically Signed: Jordin Polk DO at 20:34 EDT Tel [phone], Service support , Medical Necessity - Tobacco Use Smoking Status: Never smoker Tobacco Use: Non-smoker Assessment/Plan All Active Problems (Last Updated 06/22/19 @ 09:17 by Fahad Sesay MD) Clostridium difficile colitis (Acute) JORGE (acute kidney injury) (Acute) This is a 73 years old female patient was sent to ED by her production control manager for nausea, vomiting and worsening kidney function and she was found to have acute C. difficile colitis, acute kidney injury on top of stage IV chronic kidney disease. #1 acute C. difficile colitis: Started on oral vancomycin. She has been afebrile, bradycardic, blood pressure is maintained. Today, she has no more nausea vomiting, denies diarrhea. Plan to continue same treatment. #2 acute kidney injury on top of stage IV chronic kidney disease: Patient was on dialysis until 1 year ago when her kidney function improved and dialysis discontinued. Over the last year, creatinine is been around 2 to 3 mg/dL. Admission creatinine 6.41, came down to 6.06 today. BUN is 126 today. Patient is making urine. IV fluids discontinued because patient became more short of breath and she received IV Lasix. Nephrology consulted, recommended to start dialysis. Initially, patient mentioned that she does not want to do dialysis anymore but after discussion with nephrology, patient agreed to have dialysis. Plan for dialysis today. #3 acute on chronic hypercapnic respiratory failure: Secondary to volume overload, patient received IV fluids. IV fluids discontinued, received 1 dose of IV Lasix. She is on BiPAP at this time. ABG reviewed. She feels better at this time. Plan to continue BiPAP, discontinue IV fluids, dialysis today as above. #4 COPD/chronic hypoxic respiratory failure: Patient has been on oxygen at home at 3.5 L, it is multifactorial secondary to COPD, chronic CHF and obesity. At this time, she is on BiPAP, feeling better. I expect patient respiratory status improved after diuresis. #5 chronic diastolic CHF: Received IV fluids and went into volume overload. She received IV Lasix. She is on BiPAP. Plan for dialysis today. Metoprolol discontinued because of bradycardia. #6 hypertension: Blood pressure stable, continue clonidine, IV hydralazine PRN. Patient has been bradycardic but she denied dizziness or lightheadedness. Plan to monitor. #7 chronic anemia: Probably due to anemia of chronic disease, hemoglobin is been around 8 to 10 g/dL. Today's hemoglobin is 9.1 g/dL. Stable at baseline. #8 paroxysmal atrial fibrillation: She has been bradycardic, continue amiodarone and Catapres for rate control. She is not on anticoagulation. #9 scleroderma/crest syndrome: Recommended follow-up with pulmonary as outpatient. #10 type 2 diabetes mellitus: Blood sugar stable, she is on sliding scale. At home, she has been on glargine insulin twice daily in addition to sliding scale. #11 DVT prophylaxis: Subcu heparin. This note was generated with [employer] dictation software. It may contain incorrect words, spelling, and punctuation that were not noted in checking the note before signing. Code Visit Inpatient E&M: [id number] [facility] L3
[2019-06-22 09:57] LABS: International Normalized Ratio 1.3; Prothrombin Time (Protime)PT. 15.5 SECONDS (11.7-14.9)
--- NOTE | 2019-06-22 10:47 | PCM.CONS.R ---
Problem List (1) JORGE (acute kidney injury) Status: Acute Consultation - Renal PCP/ Referring MD: Requesting physician: [] Primary care physician: Zeenat Harp MD - History of Present Illness History of Present Illness: The patient is a 73 year old F past medical history of obstructive sleep apnea, COPD, morbid obesity, hypertension, hyperlipidemia, history of hemodialysis last year for 3 months, chronic kidney disease stage IV followed with and renal clinic, scleredema/crest syndrome. Patient has been having severe diarrhea for the last 3 days was about 4-6 times daily of watery bowel movement along with poor appetite. Patient's external grinder tender did blood work which shows creatinine up to 6.3 from baseline around 2.7 mg/dL. So patient was asked to go to the emergency room for admission. Patient was admitted. Stool test came back positive for C. difficile. Renal team was consulted to help managing acute kidney injury. Patient was given 1 L of IV fluid yesterday and then started on normal saline at 150 cc/h. Patient then became in respiratory distress and chest x-ray shows CHF. So IV fluid was stopped and patient was given 1 dose of Lasix 80 mg IV. Patient was seen this morning. She is on BiPAP. Little bradycardic at 47. Beta-stephania was stopped. Patient is on clonidine. Patient states she said her diarrhea improved. Still have some shortness of breath but better than last night. Denied nausea vomiting. Creatinine improved slightly this morning to 6.0 mg/dL with GFR around 7 mL/min. Review of system: 12 system review is negative except what mentioned HPI [] - Allergies Allergies: Allergies No Known Allergies Allergy (Verified 06/21/19 12:56) - Current Medications Current Medications: Current Medications Acetaminophen (Tylenol) 650 mg PO Q6H PRN PRN PRN Reason: Non-cardiac pain (mod-severe) Hydrocodone Bitart/Acetaminophen (Taylor 5mg-325mg) 1 - 2 tablet PO Q6H PRN PRN PRN Reason: MOD-SEVERE PAIN (4-10/10) Albuterol Sulfate (Ventolin Aerosols) 2.5 mg INHALATION Q2H PRN PRN PRN Reason: dyspnea, wheezing Last Admin: 06/21/19 22:20 Dose: 2.5 mg Documented by: Amiodarone HCl (Cordarone) 200 mg PO DAILY RUBI Aspirin (Aspirin) 325 mg PO BIDCM [facility] Last Admin: 06/22/19 08:49 Dose: Not Given Documented by: Atorvastatin Calcium (Lipitor) 40 mg PO QHS [facility] Last Admin: 06/21/19 22:08 Dose: 40 mg Documented by: Calcitriol (Rocaltrol) 0.25 mcg PO DAILY [facility] Clonidine (Catapres) 0.1 mg PO TID [facility] Last Admin: 06/22/19 05:10 Dose: Not Given Documented by: Dextrose (D50w Syringe) 0 gm IV X1 PRN; Protocol PRN Reason: Hypoglycemia Escitalopram Oxalate (Lexapro) 10 mg PO DAILY [facility] Glucagon () 1 mg IM .X1 PRN PRN Reason: Hypoglycemia Heparin Sodium (Porcine) (Heparin Na) 5,000 unit SC Q12 [facility] Last Admin: 06/21/19 22:05 Dose: 5,000 unit Documented by: Hydralazine HCl (Apresoline Iv) 10 mg IV Q4H PRN PRN PRN Reason: SBP > 160 Insulin Glargine (Lantus (Bkc)) 25 units SC BID [facility] Last Admin: 06/21/19 22:24 Dose: 25 units Documented by: Insulin Human Lispro (Humalog Kwikpen (Bk)) 0 unit SC ACHS [facility]; Protocol Last Admin: 06/22/19 06:58 Dose: Not Given Documented by: Lactobacillus Acidophilus (Acidophilus) 2 tablet PO 4X/DAY [facility] Last Admin: 06/21/19 22:08 Dose: 2 tablet Documented by: Melatonin (Melatonin) 3 mg PO QHS PRN PRN PRN Reason: INSOMNIA Morphine Sulfate () 1 - 2 mg IV Q4H PRN PRN PRN Reason: PAIN Nitroglycerin (Nitrostat) 0.4 mg SUBLINGUAL Q5M PRN PRN Reason: CARDIAC/CHEST PAIN Nystatin (Mycostatin Powder) 1 applic TOPICAL BID [facility]; Protocol Last Admin: 06/21/19 22:08 Dose: 1 applicatio Documented by: Ondansetron HCl (Zofran) 4 mg IV Q8H PRN PRN PRN Reason: NAUSEA/VOMITING Sodium Chloride () 10 - 40 ml IV UD PRN PRN Reason: SALINE FLUSH Vancomycin HCl () 125 mg PO Q6 [facility] - Past Medical History Past Medical History (Chronic Problems): Chronic Problems (Last Updated 06/22/19 @ 09:17 by Fahad Sesay MD) CREST syndrome (Chronic) HLD (hyperlipidemia) (Chronic) Chronic obstructive pulmonary disease (Chronic) Chronic respiratory failure with hypoxia (Chronic) 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) Chronic renal disease, stage V (Chronic) CVA (cerebral vascular accident) (Chronic) Secondary pulmonary arterial hypertension (Chronic) Paroxysmal atrial fibrillation (Chronic) Chronic diastolic (congestive) heart failure (Chronic) Essential hypertension (Chronic) Peripheral arterial occlusive disease (Chronic) - Past Surgical History Surgical History: cholecystectomy, rotator cuff repair, tonsillectomy, - - Status post craniotomy, dialysis catheter insertion and AVF, status post Achilles tendon repair, bilateral carpal tunnel repair/release - Social History Smoking Status: Never smoker Alcohol: None Drugs: None - Family History Maternal Family History: Family History (Last Reviewed 06/21/19 @ 12:55 by Carlota Vera) Mother Cancer Diabetes Kidney disease Father Heart disease Diabetes Kidney disease History Items: Cancer, Diabetes, Renal Disease Paternal Family History: Family History (Last Reviewed 06/21/19 @ 12:55 by Carlota Vera) Mother Cancer Diabetes Kidney disease Father Heart disease Diabetes Kidney disease History Items: Diabetes, Heart Disease, Renal Disease Patient Problems: Active and Suspected Problems (Last Updated 06/22/19 @ 09:17 by Fahad Sesay MD) Clostridium difficile colitis (Acute) JORGE (acute kidney injury) (Acute) - Physical Exam General: Alert, Oriented x3 HEENT: Atraumatic Oral: Moist Mucosa Neck: Supple, No JVD Lungs: - - Bilateral lungs crackles Cardiovascular: Regular rate, Regular Rhythm, Normal S1 Abdomen: Bowel Sounds Present, Soft, Non Tender, Non-Distended Extremities: No clubbing, No cyanosis, No edema Skin: No rashes Musculoskeletal: No Tenderness to Palpation of Joints or Extremities Lymphatic: No Cervical, Supraclavicular, or Inguinal Adenopathy Neurological: Cranial nerves II-XII grossly intact, Neuro grossly intact Psych/Mental Status: Appropriate Vital Signs Temp Pulse Resp BP Pulse Ox 98.1 F 47 L 20 H 145/77 H 99 06/22/19 08:50 06/22/19 09:40 06/22/19 09:40 06/22/19 08:50 06/22/19 09:40 Oxygen Flow Rate (L/min) 40 Oxygen Delivery Method Bi-pap Weight: 110.5 kg Body Mass Index (BMI) 40.5 Finger Stick Blood Glucose 500 Intake and Output for Last 24 Hours 06/20/19 06/21/19 06/22/19 23:59 23:59 23:59 Intake Total 1824 / 1944 1385 / 1385 Balance 1824 1385 / 1385 Microbiology Past 72 Hours 06/21/19 14:20 Enteric Bacteriology - Final Stool 06/21/19 14:20 Stool Lactoferrin - Final Stool 06/21/19 14:20 C. difficile DNA Amplification - Final Stool Toxigenic C. difficile DNA Laboratory Tests Past 24 Hrs 06/21/19 06/21/19 06/21/19 14:05 14:05 14:05 WBC 4.3 L RBC 3.26 L Hgb 10.0 L Hct 34.6 L MCV 106.1 H MCH 30.7 MCHC 28.9 L RDW Std Deviation 62.4 H RDW Coeff of Norma 16.1 H Plt Count 106 L MPV 10.4 Immature Gran % (Auto) 0.200 Neut % (Auto) 75.0 H Lymph % (Auto) 12.4 L [place] % (Auto) 9.8 Eos % (Auto) 2.1 Baso % (Auto) 0.5 Absolute Neuts (auto) 3.2 Absolute Lymphs (auto) 0.53 L Nucleated RBC % 0 Diff Path Review May foll Platelet Estimate SLT DEC Hypochromasia RARE Basophilic Stippling RARE PT INR Specimen Type Sample Site pH Bicarbonate Actual POC Total CO2 Base Excess O2 Saturation O2 % ABG pCO2 ABG pO2 Johnny Test VBG pH VBG pO2 VBG O2 Sat (Calc) VBG O2 Content VBG Base Excess POC Mix VBG pCO2 Pt Tmp Respiration Rate O2 Delivery Device Liter Flow EPAP IPAP Blood Gas Notified Whom Blood Gas Notified Time Sodium 143 Potassium 4.6 Chloride 107 Carbon Dioxide 29.0 Anion Gap 7 BUN 128 H* Creatinine 6.38 H Estim Creat Clear Calc 7.28 Est GFR (MDRD) Af Amer 8 L Est GFR (MDRD) Non-Af 7 L BUN/Creatinine Ratio 20.1 H Glucose 134 H Calcium 7.9 L Phosphorus 7.8 H Magnesium 2.0 Total Bilirubin AST ALT Alkaline Phosphatase Total Protein Albumin Globulin Albumin/Globulin Ratio 06/21/19 06/21/19 06/22/19 21:47 23:52 05:42 WBC 3.5 L RBC 3.01 L Hgb 9.1 L Hct 32.2 L MCV 107.0 H MCH 30.2 MCHC 28.3 L RDW Std Deviation 64.4 H RDW Coeff of Norma 16.6 H Plt Count 98 L MPV 10.6 Immature Gran % (Auto) 0.300 Neut % (Auto) 63.3 Lymph % (Auto) 20.6 [place] % (Auto) 12.9 H Eos % (Auto) 2.3 Baso % (Auto) 0.6 Absolute Neuts (auto) 2.2 Absolute Lymphs (auto) 0.72 L Nucleated RBC % 0 Diff Path Review Platelet Estimate Hypochromasia Basophilic Stippling PT INR Specimen Type OLIVIA ART Sample Site R Radial R Radial pH 7.20 L Bicarbonate Actual 27.1 H POC Total CO2 29 Base Excess -1 O2 Saturation 96 O2 % 40 ABG pCO2 68.7 H* ABG pO2 105 H Johnny Test POS VBG pH 7.17 L* VBG pO2 49 H VBG O2 Sat (Calc) 72 H VBG O2 Content 29 VBG Base Excess -2 L POC Mix VBG pCO2 Pt Tmp 73.1 H* Respiration Rate 12 O2 Delivery Device Nasal Can Bi / C PAP Liter Flow 4.0 EPAP 8 IPAP 20 Blood Gas Notified Whom HOSP HOSP Blood Gas Notified Time 6395 2340 Sodium Potassium Chloride Carbon Dioxide Anion Gap BUN Creatinine Estim Creat Clear Calc Est GFR (MDRD) Af Amer Est GFR (MDRD) Non-Af BUN/Creatinine Ratio Glucose Calcium Phosphorus Magnesium Total Bilirubin AST ALT Alkaline Phosphatase Total Protein Albumin Globulin Albumin/Globulin Ratio 06/22/19 06/22/19 05:42 09:40 WBC RBC Hgb Hct MCV MCH MCHC RDW Std Deviation RDW Coeff of Norma Plt Count MPV Immature Gran % (Auto) Neut % (Auto) Lymph % (Auto) [place] % (Auto) Eos % (Auto) Baso % (Auto) Absolute Neuts (auto) Absolute Lymphs (auto) Nucleated RBC % Diff Path Review Platelet Estimate Hypochromasia Basophilic Stippling PT 15.5 H INR 1.3 Specimen Type Sample Site pH Bicarbonate Actual POC Total CO2 Base Excess O2 Saturation O2 % ABG pCO2 ABG pO2 Johnny Test VBG pH VBG pO2 VBG O2 Sat (Calc) VBG O2 Content VBG Base Excess POC Mix VBG pCO2 Pt Tmp Respiration Rate O2 Delivery Device Liter Flow EPAP IPAP Blood Gas Notified Whom Blood Gas Notified Time Sodium 148 H Potassium 4.4 Chloride 112 H Carbon Dioxide 26.0 Anion Gap 10 BUN 126 H* Creatinine 6.06 H Estim Creat Clear Calc 7.66 Est GFR (MDRD) Af Amer 9 L Est GFR (MDRD) Non-Af 7 L BUN/Creatinine Ratio 20.8 H Glucose 85 Calcium 7.5 L Phosphorus Magnesium Total Bilirubin 0.30 AST 6 L ALT 10 L Alkaline Phosphatase 63 Total Protein 6.6 Albumin 2.8 L Globulin 3.8 Albumin/Globulin Ratio 0.7 L POC Glucose 06/22/19 06/21/19 06/21/19 06:52 21:52 17:26 POC Glucose 70 153 H 157 H Assessment/Plan All Active Problems (Last Updated 06/22/19 @ 09:17 by Fahad Seasy MD) Clostridium difficile colitis (Acute) JORGE (acute kidney injury) (Acute) 1-acute kidney injury and chronic kidney disease stage IV with baseline creatinine around 2.7 mg/dL. Patient follows with in renal clinic. Acute kidney injury is likely from ATN related to severe prerenal status. Patient became in respiratory with volume expansion. Creatinine improved slightly from 6.3 to 6.0 mg deciliter. Patient cannot tolerate further IV fluid. Given the severity of acute kidney injury and the lack of response to IV fluid along with respiratory distress, patient will need to be initiated on hemodialysis. I discussed this issue with her and her . Both agreed to pursue dialysis. Patient currently has maturing left lower extremity AV fistula. We will leave this fistula for hemodialysis today. We will arrange for hemodialysis today for 2 hours, blood flow rate of 200, dialysis flow rate 400 and ultrafiltration of 2 L. Please avoid nephrotoxic like IV contrast exposure and NSAIDs. Avoid EVER inhibitor or ARB for now. Check renal function in the morning. Accurate input output documentation. 2-hyponatremia. Most probably from free water loss from GI. Encouraged oral water intake. I will hold starting D5 given the respiratory distress. 3-hypertension: Blood pressure is well controlled. Patient slightly bradycardic. I will cut clonidine dose to twice daily. Might start Norvasc if her blood pressure rises. Please avoid beta-stephania due to bradycardia. Please avoid EVER inhibitor or ARB given acute kidney injury. 4-C. difficile colitis. On oral vancomycin as per the primary service. Thank you for allowing me to participate in Mrs. Garcia's care. Please call if any question concern at [phone]. Plan of care was discussed with Dr.Ashelfah Nidia Jones MD
[2019-06-22] MEDS: Heparin Injection (Vial) 5,000 UNIT/ML VIAL 5000 UNIT SC ×2 (11:23→22:23)
[2019-06-22] MEDS: Calcitriol 0.25 MCG Capsule PO (11:24)
[2019-06-22] MEDS: Escitalopram Oxalate 10 MG Tablet PO (11:24)
[2019-06-22] MEDS: Nystatin Powder 15gm Bottle 1 APPLIC TOPICAL ×2 (11:24→22:24)
--- NOTE | 2019-06-22 11:30 | CASEMGMT ---
RN CM Face to Face with patient for initial transition planning/care coordination assessment. RN CM introduced self and role at [facility]. Patient lying in bed, drowsy and on bipap, at bedside. Ilir, who is HPOA, willing to participate in assessment and is able to answer all questions appropriately. Care providers, pharmacy, and demographics verified. wishes for patient to discharge home with HHC and resumption of CCN. states he has no further needs or concerns at this time. CM to follow for discharge planning needs that may arise. PCP: [place] Specialists: Alondra, nephrology; Erik, pulmonology; Danelle, home connect lpn Preferred Pharmacy: [facility] Insurance: txtr PPO Prescription Benefit: yes Living Will/HPOA: yes, Ilir Garcia LNOK: Living Arrangements: Patient lives with in single story home with 1 step to enter the home. assists with ADLs at times. Transportation: [place], sister DME/HHC: Patient has shower chair, BSC, cane, grab bars, walker, rollator, wheelchair, Oxygen 3.5lpm through [employer], nebulizer. Patient has had HHC in the past with [facility]HC and CCN Disposition Plan: Patient to discharge home with HHC, CCN, family support, and follow-up plans in place. Zelda CAMPBELL, RN, CM
[2019-06-22 12:10] LABS: Bedside Glucose 79 mg/dL (70-110)
--- NOTE | 2019-06-22 12:27 | PCM.HP.ID ---
Problem List (1) C. difficile diarrhea Status: Acute Reason for Consult: cdiff Consulted by: Dr. Dang History of Present Illness: The patient is a 73 year old F with scleroderma, CKD, presented with 2-3 days of diarrhea and cramping abd pain. No fever, no recent abx, no prior h/o cdiff. Diarrhea was 4-6 times a day, no blood in stool. Pain was moderate, across abd. Had some increased edema and dyspnea. No cough. Admitted, neph consulted. Full ROS performed and neg except as noted above. provided additional history at bedside. 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) Chronic renal disease, stage V (Chronic) CVA (cerebral vascular accident) (Chronic) Secondary pulmonary arterial hypertension (Chronic) Paroxysmal atrial fibrillation (Chronic) Chronic diastolic (congestive) heart failure (Chronic) Essential hypertension (Chronic) Peripheral arterial occlusive disease (Chronic) Allergies/Adverse Reactions: Allergies No Known Allergies Allergy (Verified 06/21/19 12:56) Home Medications: Ambulatory Orders Medication Instructions Recorded Insulin Aspart [Novolog Flexpen] See Protocol SQ 4X/DAY 03/01/18 pantoprazole 40 mg tablet,delayed 40 mg PO DAILY 04/06/18 release calcitriol 0.25 mcg capsule 0.25 mcg PO DAILY 09/09/18 Acetaminophen [Tylenol Tablet] 650 mg PO Q6H PRN PRN tab 11/15/18 Nystatin Powder [Mycostatin Powder] 1 applic TOPICAL BID #1 bottle 11/15/18 insulin glargine (U-100) 100 25 unit SC BID ml 12/15/18 unit/mL subcutaneous solution metolazone 5 mg tablet 5 mg PO MOSA tab 12/17/18 metoprolol succinate ER 25 mg 12.5 mg PO DAILY tab 12/30/18 tablet,extended release 24 hr aspirin 325 mg tablet 325 mg PO BID tab 02/23/19 escitalopram 10 mg tablet 10 mg PO DAILY 02/23/19 furosemide 80 mg tablet 80 mg PO DAILY 02/23/19 Amiodarone HCl 200 mg PO DAILY 06/21/19 Atorvastatin Calcium [Lipitor] 40 mg PO DAILY 06/21/19 Clonidine HCl [Catapres] 0.1 mg PO TID 06/21/19 - Social History Tobacco Use: non-smoker Vital Signs Temp Pulse Resp BP Pulse Ox 98.1 F 47 L 20 H 145/77 H 99 06/22/19 08:50 06/22/19 09:40 06/22/19 09:40 06/22/19 08:50 06/22/19 09:40 Oxygen Flow Rate (L/min) 40 Oxygen Delivery Method Bi-pap Weight: 110.5 kg Body Mass Index (BMI) 40.5 Finger Stick Blood Glucose 500 Microbiology Past 72 Hours 06/21/19 14:20 Enteric Bacteriology - Final Stool 06/21/19 14:20 Stool Lactoferrin - Final Stool 06/21/19 14:20 C. difficile DNA Amplification - Final Stool Toxigenic C. difficile DNA Laboratory Tests Past 24 Hrs 06/21/19 06/21/19 06/21/19 14:05 14:05 14:05 WBC 4.3 L RBC 3.26 L Hgb 10.0 L Hct 34.6 L MCV 106.1 H MCH 30.7 MCHC 28.9 L RDW Std Deviation 62.4 H RDW Coeff of Norma 16.1 H Plt Count 106 L MPV 10.4 Immature Gran % (Auto) 0.200 Neut % (Auto) 75.0 H Lymph % (Auto) 12.4 L [place] % (Auto) 9.8 Eos % (Auto) 2.1 Baso % (Auto) 0.5 Absolute Neuts (auto) 3.2 Absolute Lymphs (auto) 0.53 L Nucleated RBC % 0 Diff Path Review May foll Platelet Estimate SLT DEC Hypochromasia RARE Basophilic Stippling RARE PT INR Specimen Type Sample Site pH Bicarbonate Actual POC Total CO2 Base Excess O2 Saturation O2 % ABG pCO2 ABG pO2 Johnny Test VBG pH VBG pO2 VBG O2 Sat (Calc) VBG O2 Content VBG Base Excess POC Mix VBG pCO2 Pt Tmp Respiration Rate O2 Delivery Device Liter Flow EPAP IPAP Blood Gas Notified Whom Blood Gas Notified Time Sodium 143 Potassium 4.6 Chloride 107 Carbon Dioxide 29.0 Anion Gap 7 BUN 128 H* Creatinine 6.38 H Estim Creat Clear Calc 7.28 Est GFR (MDRD) Af Amer 8 L Est GFR (MDRD) Non-Af 7 L BUN/Creatinine Ratio 20.1 H Glucose 134 H Calcium 7.9 L Phosphorus 7.8 H Magnesium 2.0 Total Bilirubin AST ALT Alkaline Phosphatase Total Protein Albumin Globulin Albumin/Globulin Ratio 06/21/19 06/21/19 06/22/19 21:47 23:52 05:42 WBC 3.5 L RBC 3.01 L Hgb 9.1 L Hct 32.2 L MCV 107.0 H MCH 30.2 MCHC 28.3 L RDW Std Deviation 64.4 H RDW Coeff of Norma 16.6 H Plt Count 98 L MPV 10.6 Immature Gran % (Auto) 0.300 Neut % (Auto) 63.3 Lymph % (Auto) 20.6 [place] % (Auto) 12.9 H Eos % (Auto) 2.3 Baso % (Auto) 0.6 Absolute Neuts (auto) 2.2 Absolute Lymphs (auto) 0.72 L Nucleated RBC % 0 Diff Path Review Platelet Estimate Hypochromasia Basophilic Stippling PT INR Specimen Type OLIVIA ART Sample Site R Radial R Radial pH 7.20 L Bicarbonate Actual 27.1 H POC Total CO2 29 Base Excess -1 O2 Saturation 96 O2 % 40 ABG pCO2 68.7 H* ABG pO2 105 H Johnny Test POS VBG pH 7.17 L* VBG pO2 49 H VBG O2 Sat (Calc) 72 H VBG O2 Content 29 VBG Base Excess -2 L POC Mix VBG pCO2 Pt Tmp 73.1 H* Respiration Rate 12 O2 Delivery Device Nasal Can Bi / C PAP Liter Flow 4.0 EPAP 8 IPAP 20 Blood Gas Notified Whom HOSP MD HOSP MD Blood Gas Notified Time [id number] Sodium Potassium Chloride Carbon Dioxide Anion Gap BUN Creatinine Estim Creat Clear Calc Est GFR (MDRD) Af Amer Est GFR (MDRD) Non-Af BUN/Creatinine Ratio Glucose Calcium Phosphorus Magnesium Total Bilirubin AST ALT Alkaline Phosphatase Total Protein Albumin Globulin Albumin/Globulin Ratio 06/22/19 06/22/19 05:42 09:40 WBC RBC Hgb Hct MCV MCH MCHC RDW Std Deviation RDW Coeff of Norma Plt Count MPV Immature Gran % (Auto) Neut % (Auto) Lymph % (Auto) [place] % (Auto) Eos % (Auto) Baso % (Auto) Absolute Neuts (auto) Absolute Lymphs (auto) Nucleated RBC % Diff Path Review Platelet Estimate Hypochromasia Basophilic Stippling PT 15.5 H INR 1.3 Specimen Type Sample Site pH Bicarbonate Actual POC Total CO2 Base Excess O2 Saturation O2 % ABG pCO2 ABG pO2 Johnny Test VBG pH VBG pO2 VBG O2 Sat (Calc) VBG O2 Content VBG Base Excess POC Mix VBG pCO2 Pt Tmp Respiration Rate O2 Delivery Device Liter Flow EPAP IPAP Blood Gas Notified Whom Blood Gas Notified Time Sodium 148 H Potassium 4.4 Chloride 112 H Carbon Dioxide 26.0 Anion Gap 10 BUN 126 H* Creatinine 6.06 H Estim Creat Clear Calc 7.66 Est GFR (MDRD) Af Amer 9 L Est GFR (MDRD) Non-Af 7 L BUN/Creatinine Ratio 20.8 H Glucose 85 Calcium 7.5 L Phosphorus Magnesium Total Bilirubin 0.30 AST 6 L ALT 10 L Alkaline Phosphatase 63 Total Protein 6.6 Albumin 2.8 L Globulin 3.8 Albumin/Globulin Ratio 0.7 L - Other Studies Radiology: [] reviewed Other Studies: [] Route of nutrition/ use of supplements: [] Nutritional Intake: [] IV Site: [] [place]on Catheter: [] - Physical Exam General: Cooperative, - - ill appearing, on nippv HEENT: Atraumatic, PERRLA Neck: Supple, No Nodes Lungs: Diminished, Rales Cardiovascular: Bradycardic Abdomen: Soft, Non-Distended, Tender - mild Extremities: Edema Skin: No rashes IV Site: Peripheral, without redness Musculoskeletal: No Tenderness to Palpation of Joints or Extremities Neurological: Cranial nerves II-XII grossly intact - Assessment/Plan Antibiotics: [] Assessment/Plan: [] Active and Suspected Problems (Last Updated 06/22/19 @ 09:17 by Fahad Sesay MD) Clostridium difficile colitis (Acute) JORGE (acute kidney injury) (Acute) cdiff diarrhea with JORGE on CKD - will start po vanc. Will follow, thank you.
[2019-06-22 13:08] LABS: Pathologist Review Reviewed
--- NOTE | 2019-06-22 13:30 | NURSING ---
DIALYSIS NURSE AND UNIT HERE, PT STATES HE AND PT AGREEABLE TO DIALYSIS TODAY
[2019-06-22 15:09] LABS: Hepatitis B Surface Antibody Non-Reactive; Hepatitis B Surface Antigen Non-Reactive (Nonreactive)
--- NOTE | 2019-06-22 16:36 | DIALYSIS ---
HD x 2 hours complete. Tolerated tx well. UF of 2000ml. Used left arm fistula. Craig removed post tx. Pressure applied x 10 minutes. Fresh gauze and tape applied. Report was given to Florencio Leija.
[2019-06-22 17:31] LABS: Bedside Glucose 64 mg/dL (70-110)
[2019-06-22] MEDS: Aspirin 325 MG Tablet PO (18:06)
[2019-06-22 18:46] LABS: Bedside Glucose 122 mg/dL (70-110)
[2019-06-22 22:11] LABS: Bedside Glucose 107 mg/dL (70-110)
[2019-06-22] MEDS: Atorvastatin Calcium 40 MG Tablet PO (22:24)
[2019-06-23] VITALS (14 sets, daily range): BP systolic 140–161; BP diastolic 61–77; PULSE 49–63; RESP 16–22; TEMP 37.1–37.4; O2SAT 95–100
[2019-06-23 06:22] LABS: Absolute Lymphocyte Count 0.35 X10^3/uL (0.83-4.51); Absolute Neutrophil Count 3.6 X10^3/uL (2.0-7.7); Basophil# 0.01 X10^3/uL; Basophil% 0.2 % (0-1); Eosinophil# 0.08 X10^3/uL; Eosinophils% 1.8 % (0-5); Hematocrit 30.8 % (37-47); Lymphocyte # 0.35 X10^3/ul (4.0); Lymphocyte % 7.8 % (19-41); Mean Corp Hgb Conc 29.2 g/dL (32-36); Mean Corpuscular Hgb 30.3 pg (27.0-32.0); Mean Corpuscular Volume 103.7 fL (81-99); Mean Platelet Vol. 10.9 fl (6.2-12.0); Monocyte# 0.44 X10^3/uL; Monocyte% 9.9 % (0-10); NRBC Flagged by Analyzer 0 % (0-5); Neutrophil # 3.57 X10^3/uL (2.7-7.7); Neutrophil % 80.1 % (47-70); POSITIVE COUNT YES; POSITIVE DIFFERENTIAL YES; Platelet Count 86 K/mm3 (150-450); RBC Distribution Width CV 16.2 % (11.6-14.6); RBC Distribution Width SD 61.5 fl (35.1-43.9); Red Blood Count 2.97 M/mm3 (4.2-5.4); White Blood Count 4.5 K/mm3 (4.4-11.0)
[2019-06-23] MEDS: Acetaminophen 325 MG Tablet 650 MG PO ×2 (06:24→15:29)
[2019-06-23 06:35] LABS: Anion Gap 11 (5-15); BUN 92 mg/dL (7-18); BUN/Creat Ratio 18.8 RATIO (10-20); Calcium,Total 7.5 mg/dL (8.5-10.1); Chloride 109 mmol/L (98-107); EST Glomerular Filtration Rate 9 mL/min (>60); Est Glom Filt Rate - Afr Amer 11 mL/min (>60); Estimated Creatinine Clearance 9.48 ml/min; Glucose 53 mg/dL (74-106); Potassium 4.4 mmol/L (3.5-5.1); Sodium Level 144 mmol/L (136-145)
--- NOTE | 2019-06-23 06:38 | NURSING ---
4 oz of apple juice given for BG of 58
[2019-06-23 06:49] LABS: Differential Indicated SCAN CRITERIA MET
[2019-06-23 06:53] LABS: Differential Comment SCANNED; Macrocytosis 2+
[2019-06-23 07:11] LABS: Bedside Glucose 58 mg/dL (70-110)
--- NOTE | 2019-06-23 08:23 | PN_ITS ---
Patient Problems: Active and Suspected Problems (Last Updated 06/22/19 @ 09:17 by Fahad Sesay MD) C. difficile diarrhea (Acute) Clostridium difficile colitis (Acute) JORGE (acute kidney injury) (Acute) Subjective: Chief complaint: Follow-up after admission for acute kidney injury on top of stage IV chronic kidney disease, acute C. difficile colitis and acute on chronic hypercapnic respiratory failure. Patient seen and examined. No acute events overnight. This morning, she mentioned that her breathing is getting better but still on BiPAP. She denies any diarrhea. Denied chest pain or palpitation. She is afebrile, bradycardic, blood pressure stable, pulse ox is 98% on BiPAP. - Physical Exam General: Alert, Oriented x3, Cooperative, - - Mildly short of breath. HEENT: Atraumatic, PERRLA, EOMI, Normocephalic Oral: Moist Mucosa, No Gingival or Mucosal Lesions/ Ulcerations Neck: Supple, No JVD, Negative Carotid Bruits, Trachea Midline, Thyroid Normal Size and Texture Lungs: No wheeze, Diminished, Rhonchi, Short of Breath, - - Decreased breath sounds bilateral, more at the bases, rhonchi. Cardiovascular: Regular rate, Regular Rhythm, Normal S1, Normal S2, PMI Normal, Bradycardic Abdomen: Bowel Sounds Present, Soft, Non Tender, Non-Distended, No Hepato- splenomegaly, Obese Extremities: No clubbing, No cyanosis, No edema Skin: No rashes, No breakdown Lymphatic: No Cervical, Supraclavicular, or Inguinal Adenopathy Neurological: Cranial nerves II-XII grossly intact, Neuro grossly intact Psych/Mental Status: Normal Affect, Appropriate Vital Signs Temp Pulse Resp BP Pulse Ox 99.1 F 54 L 18 144/69 H 100 06/23/19 03:00 06/23/19 03:46 06/23/19 03:46 06/23/19 03:00 06/23/19 03:46 Oxygen Flow Rate (L/min) 3.5 Oxygen Delivery Method Bi-pap Weight: 254 lb 3.088 oz Body Mass Index (BMI) 40.5 Finger Stick Blood Glucose 500 Intake and Output for Last 24 Hours 06/21/19 06/22/19 06/23/19 23:59 23:59 23:59 Intake Total 1825 / 1945 2097.5 / 2217.5 240 / 240 Output Total 2200 / 2200 Balance 182 / 194 -102.5 / 17.5 240 / 240 Microbiology Past 72 Hours 06/21/19 14:20 Enteric Bacteriology - Final Stool 06/21/19 14:20 Stool Lactoferrin - Final Stool 06/21/19 14:20 C. difficile DNA Amplification - Final Stool Toxigenic C. difficile DNA Laboratory Tests Past 24 Hrs 06/21/19 06/22/19 06/22/19 14:05 09:40 14:00 WBC RBC Hgb Hct MCV MCH MCHC RDW Std Deviation RDW Coeff of Norma Plt Count MPV Immature Gran % (Auto) Neut % (Auto) Lymph % (Auto) [place] % (Auto) Eos % (Auto) Baso % (Auto) Absolute Neuts (auto) Absolute Lymphs (auto) Nucleated RBC % Differential Comment Diff Path Review Reviewed Macrocytosis PT 15.5 H INR 1.3 Sodium Potassium Chloride Carbon Dioxide Anion Gap BUN Creatinine Estim Creat Clear Calc Est GFR (MDRD) Af Amer Est GFR (MDRD) Non-Af BUN/Creatinine Ratio Glucose Calcium Hep Bs Antigen Hep Bs Antibody Hep B Core Total Ab Pending 06/22/19 06/23/19 06/23/19 14:00 05:56 05:56 WBC 4.5 RBC 2.97 L Hgb 9.0 L Hct 30.8 L MCV 103.7 H MCH 30.3 MCHC 29.2 L RDW Std Deviation 61.5 H RDW Coeff of Norma 16.2 H Plt Count 86 L MPV 10.9 Immature Gran % (Auto) 0.200 Neut % (Auto) 80.1 H Lymph % (Auto) 7.8 L [place] % (Auto) 9.9 Eos % (Auto) 1.8 Baso % (Auto) 0.2 Absolute Neuts (auto) 3.6 Absolute Lymphs (auto) 0.35 L Nucleated RBC % 0 Differential Comment SCANNED Diff Path Review Macrocytosis 2+ PT INR Sodium 144 Potassium 4.4 Chloride 109 H Carbon Dioxide 24.0 Anion Gap 11 BUN 92 H Creatinine 4.90 H Estim Creat Clear Calc 9.48 Est GFR (MDRD) Af Amer 11 L Est GFR (MDRD) Non-Af 9 L BUN/Creatinine Ratio 18.8 Glucose 53 L Calcium 7.5 L Hep Bs Antigen Non-Reactive Hep Bs Antibody Non-Reactive Hep B Core Total Ab POC Glucose 06/23/19 06/22/19 06/22/19 06:27 22:02 18:38 POC Glucose 58 L 107 122 H 06/22/19 06/22/19 17:23 11:29 POC Glucose 64 L 79 Medical Necessity - Tobacco Use Smoking Status: Never smoker Tobacco Use: Non-smoker Assessment/Plan All Active Problems (Last Updated 06/22/19 @ 09:17 by Fahad Sesay MD) C. difficile diarrhea (Acute) Clostridium difficile colitis (Acute) JORGE (acute kidney injury) (Acute) This is a 73 years old female patient was sent to ED by her fire control assistant for nausea, vomiting and worsening kidney function and she was found to have acute C. difficile colitis, acute kidney injury on top of stage IV chronic kidney disease. #1 acute C. difficile colitis: She is on oral vancomycin. She has been afebrile, bradycardic, blood pressure is maintained. She denies any more diarrhea, no abdominal pain, nausea or vomiting. Plan to continue same treatment. #2 acute kidney injury on top of stage IV chronic kidney disease: Started on hemodialysis yesterday. BUN and creatinine improved as well as volume status. Shortness of breath improved. Over the last year, creatinine is been around 2 to 3 mg/dL. Admission creatinine 6.41, came down to 4.90 today after dialysis. BUN is down to 92. Nephrology on the case. Will discuss with nephrology if dialysis needed today, wean off oxygen, take patient off BiPAP and start nasal cannula. #3 acute on chronic hypercapnic respiratory failure: Secondary to volume overload, patient received IV fluids. Patient underwent dialysis today, she is feeling better, less short of breath but still requiring BiPAP. Plan: Wean off oxygen, take off BiPAP, start oxygen by nasal cannula if patient tolerates. #4 COPD/chronic hypoxic respiratory failure: Patient has been on oxygen at home at 3.5 L, it is multifactorial secondary to COPD, chronic CHF and obesity. At this time, she is on BiPAP, feeling better. Plan as above. #5 chronic diastolic CHF: Volume status improved after hemodialysis. Metoprolol held because of bradycardia. Will resume Lasix if okay with nephrology. #6 hypertension: Blood pressure stable, continue clonidine, IV hydralazine PRN. #7 chronic anemia: Probably due to anemia of chronic disease, hemoglobin is been around 8 to 10 g/dL. Today's hemoglobin is 9.0 g/dL. Stable at baseline. #8 paroxysmal atrial fibrillation: She has been bradycardic, continue amiodarone and Catapres for rate control. She is not on anticoagulation. #9 scleroderma/crest syndrome: Recommended follow-up with pulmonary as outpatient. #10 type 2 diabetes mellitus: Blood sugar stable, she is on sliding scale. At home, she has been on glargine insulin twice daily in addition to sliding scale. #11 DVT prophylaxis: Subcu heparin. This note was generated with [employer] dictation software. It may contain incorrect words, spelling, and punctuation that were not noted in checking the note before signing. Code Visit Inpatient E&M: 44965 Subs Hosp L2
[2019-06-23] MEDS: Aspirin 325 MG Tablet PO ×2 (08:39→18:55)
--- NOTE | 2019-06-23 10:35 | PCM.PN.REN ---
Patient Problems: Active and Suspected Problems (Last Updated 06/22/19 @ 09:17 by Fahad Sesay MD) C. difficile diarrhea (Acute) Clostridium difficile colitis (Acute) JORGE (acute kidney injury) (Acute) Subjective: Pt is doing well. [place] better after HD session No nausea No vomiting. Breathing is better. still on NC - Physical Exam General: Alert, Oriented x3 HEENT: Atraumatic Oral: Moist Mucosa Neck: Supple, No JVD Lungs: Rales, Rhonchi Cardiovascular: Regular rate, Regular Rhythm, Normal S1, Normal S2 Abdomen: Bowel Sounds Present, Soft, Non Tender Extremities: No clubbing, No cyanosis, No edema Skin: No rashes Musculoskeletal: No Tenderness to Palpation of Joints or Extremities Lymphatic: No Cervical, Supraclavicular, or Inguinal Adenopathy Neurological: Cranial nerves II-XII grossly intact, Neuro grossly intact Psych/Mental Status: Appropriate Vital Signs Temp Pulse Resp BP Pulse Ox 98.7 F 58 L 20 H 142/61 H 97 06/23/19 08:40 06/23/19 08:40 06/23/19 08:40 06/23/19 08:40 06/23/19 08:40 Oxygen Flow Rate (L/min) 4 Oxygen Delivery Method Nasal Cannula Weight: 115.3 kg Body Mass Index (BMI) 40.5 Finger Stick Blood Glucose 500 Intake and Output for Last 24 Hours 06/21/19 06/22/19 06/23/19 23:59 23:59 23:59 Intake Total 1825 / 1945 2097.5 / 2217.5 240 / 240 Output Total 2200 / 2200 Balance 1825 / 1945 -102.5 / 17.5 240 / 240 Microbiology Past 72 Hours 06/21/19 14:20 Enteric Bacteriology - Final Stool 06/21/19 14:20 Stool Lactoferrin - Final Stool 06/21/19 14:20 C. difficile DNA Amplification - Final Stool Toxigenic C. difficile DNA Laboratory Tests Past 24 Hrs 06/21/19 06/22/19 06/22/19 14:05 14:00 14:00 WBC RBC Hgb Hct MCV MCH MCHC RDW Std Deviation RDW Coeff of Norma Plt Count MPV Immature Gran % (Auto) Neut % (Auto) Lymph % (Auto) [place] % (Auto) Eos % (Auto) Baso % (Auto) Absolute Neuts (auto) Absolute Lymphs (auto) Nucleated RBC % Differential Comment Diff Path Review Reviewed Macrocytosis Sodium Potassium Chloride Carbon Dioxide Anion Gap BUN Creatinine Estim Creat Clear Calc Est GFR (MDRD) Af Amer Est GFR (MDRD) Non-Af BUN/Creatinine Ratio Glucose Calcium Hep Bs Antigen Non-Reactive Hep Bs Antibody Non-Reactive Hep B Core Total Ab Pending 06/23/19 06/23/19 05:56 05:56 WBC 4.5 RBC 2.97 L Hgb 9.0 L Hct 30.8 L MCV 103.7 H MCH 30.3 MCHC 29.2 L RDW Std Deviation 61.5 H RDW Coeff of Norma 16.2 H Plt Count 86 L MPV 10.9 Immature Gran % (Auto) 0.200 Neut % (Auto) 80.1 H Lymph % (Auto) 7.8 L [place] % (Auto) 9.9 Eos % (Auto) 1.8 Baso % (Auto) 0.2 Absolute Neuts (auto) 3.6 Absolute Lymphs (auto) 0.35 L Nucleated RBC % 0 Differential Comment SCANNED Diff Path Review Macrocytosis 2+ Sodium 144 Potassium 4.4 Chloride 109 H Carbon Dioxide 24.0 Anion Gap 11 BUN 92 H Creatinine 4.90 H Estim Creat Clear Calc 9.48 Est GFR (MDRD) Af Amer 11 L Est GFR (MDRD) Non-Af 9 L BUN/Creatinine Ratio 18.8 Glucose 53 L Calcium 7.5 L Hep Bs Antigen Hep Bs Antibody Hep B Core Total Ab POC Glucose 06/23/19 06/22/19 06/22/19 06:27 22:02 18:38 POC Glucose 58 L 107 122 H 06/22/19 06/22/19 17:23 11:29 POC Glucose 64 L 79 Medical Necessity - Tobacco Use Smoking Status: Never smoker Tobacco Use: Non-smoker Assessment/Plan All Active Problems (Last Updated 06/22/19 @ 09:17 by Fahad Sesay MD) C. difficile diarrhea (Acute) Clostridium difficile colitis (Acute) JORGE (acute kidney injury) (Acute) 1-acute kidney injury and chronic kidney disease stage IV with baseline creatinine around 2.7 mg/dL. Patient follows with in renal clinic. Acute kidney injury is likely from ATN related to severe prerenal status. Pt also has h/o ANCA+. I will re check UA along with C3/C4, GUILLAUME, ANCA and antiGBM If UA showed proteinuria/hematuria with positive serology, will arrange for kidney Bx Pt is likely ESRD now . HD started 06/22 Will arrange for the 2nd HD session today for 2.5 hours, blood flow rate of 250, dialysis flow rate 500 and ultrafiltration of 2 L. Please avoid nephrotoxic like IV contrast exposure and NSAIDs. Avoid EVER inhibitor or ARB for now. Check renal function in the morning. Accurate input output documentation. 2-hyponatremia. resolved with HD. 3-hypertension: Blood pressure is well controlled. continue same BP meds Please avoid EVER inhibitor or ARB given acute kidney injury. 4-C. difficile colitis. On oral vancomycin as per the primary service.better Thank you for allowing me to participate in Mrs. Garcia's care. Please call if any question concern at [phone]. Plan of care was discussed with Dr.Ashelfah Nidia Jones MD
[2019-06-23] MEDS: Escitalopram Oxalate 10 MG Tablet PO (11:06)
[2019-06-23] MEDS: Calcitriol 0.25 MCG Capsule PO (11:06)
[2019-06-23] MEDS: Heparin Injection (Vial) 5,000 UNIT/ML VIAL 5000 UNIT SC ×2 (11:06→21:08)
[2019-06-23] MEDS: Nystatin Powder 15gm Bottle 1 APPLIC TOPICAL ×2 (11:07→21:08)
[2019-06-23 11:26] LABS: Bedside Glucose 131 mg/dL (70-110)
--- NOTE | 2019-06-23 11:30 | CASEMGMT ---
ELI STARR received update that patient will require outpatient HD at [facility]. ELI STARR sent referral to [facility] and awaiting treatment schedule. ELI STARR updated regarding HD setup. ELI STARR also sent referral to [facility] for SN, PT/OT, SW and they are able to accept the patient. ELI STARR will continue to follow this patient and plan for safe discharge.
[2019-06-23 12:17] LABS: Hepatitis B Core Ab Total Negative (Negative)
--- NOTE | 2019-06-23 12:18 | PN.ID_ITS ---
Patient Problems: Active and Suspected Problems (Last Updated 06/22/19 @ 09:17 by Fahad Sesay MD) C. difficile diarrhea (Acute) Clostridium difficile colitis (Acute) JORGE (acute kidney injury) (Acute) Subjective: Feeling better, no diarrhea, breathing improved, HD yesterday - Physical Exam General: Alert, Cooperative, No apparent distress Lungs: Clear to auscultation, Normal air movement Cardiovascular: Regular rate, Regular Rhythm Abdomen: Soft, Non Tender, Non-Distended Skin: No rashes Vital Signs Temp Pulse Resp BP Pulse Ox 98.7 F 57 L 20 H 142/61 H 97 06/23/19 08:40 06/23/19 10:00 06/23/19 08:40 06/23/19 08:40 06/23/19 08:40 Oxygen Flow Rate (L/min) 4 Oxygen Delivery Method Nasal Cannula Weight: 115.3 kg Body Mass Index (BMI) 40.5 Finger Stick Blood Glucose 500 Intake and Output for Last 24 Hours 06/21/19 06/22/19 06/23/19 23:59 23:59 23:59 Intake Total 1825 / 1945 2097.5 / 2217.5 240 / 240 Output Total 2200 / 2200 Balance 1825 / 1945 -102.5 / 17.5 240 / 240 Microbiology Past 72 Hours 06/21/19 14:20 Enteric Bacteriology - Final Stool 06/21/19 14:20 Stool Lactoferrin - Final Stool 06/21/19 14:20 C. difficile DNA Amplification - Final Stool Toxigenic C. difficile DNA Laboratory Tests Past 24 Hrs 06/21/19 06/22/19 06/22/19 14:05 14:00 14:00 WBC RBC Hgb Hct MCV MCH MCHC RDW Std Deviation RDW Coeff of Norma Plt Count MPV Immature Gran % (Auto) Neut % (Auto) Lymph % (Auto) [place] % (Auto) Eos % (Auto) Baso % (Auto) Absolute Neuts (auto) Absolute Lymphs (auto) Nucleated RBC % Differential Comment Diff Path Review Reviewed Macrocytosis Sodium Potassium Chloride Carbon Dioxide Anion Gap BUN Creatinine Estim Creat Clear Calc Est GFR (MDRD) Af Amer Est GFR (MDRD) Non-Af BUN/Creatinine Ratio Glucose Calcium GUILLAUME Screen c-ANCA Antibody p-ANCA Antibody JASBIR-1 Antibody SS-A/Ro IgG Antibody SS-B/La IgG Antibody Sm (Powell) Antibody PRODUCT MANUFACTURING PROFESSIONAL Antibody Scl-70 Scleroderma Ab Double Strand DNA Ab Centromere B Antibody Glomerular Base Memb Ab Complement C3 Complement C4 Hep Bs Antigen Non-Reactive Hep Bs Antibody Non-Reactive Hep B Core Total Ab Negative 06/23/19 06/23/19 06/23/19 05:56 05:56 10:40 WBC 4.5 RBC 2.97 L Hgb 9.0 L Hct 30.8 L MCV 103.7 H MCH 30.3 MCHC 29.2 L RDW Std Deviation 61.5 H RDW Coeff of Norma 16.2 H Plt Count 86 L MPV 10.9 Immature Gran % (Auto) 0.200 Neut % (Auto) 80.1 H Lymph % (Auto) 7.8 L [place] % (Auto) 9.9 Eos % (Auto) 1.8 Baso % (Auto) 0.2 Absolute Neuts (auto) 3.6 Absolute Lymphs (auto) 0.35 L Nucleated RBC % 0 Differential Comment SCANNED Diff Path Review Macrocytosis 2+ Sodium 144 Potassium 4.4 Chloride 109 H Carbon Dioxide 24.0 Anion Gap 11 BUN 92 H Creatinine 4.90 H Estim Creat Clear Calc 9.48 Est GFR (MDRD) Af Amer 11 L Est GFR (MDRD) Non-Af 9 L BUN/Creatinine Ratio 18.8 Glucose 53 L Calcium 7.5 L GUILLAUME Screen Pending c-ANCA Antibody p-ANCA Antibody JASBIR-1 Antibody Pending SS-A/Ro IgG Antibody Pending SS-B/La IgG Antibody Pending Sm (Powell) Antibody Pending PRODUCT MANUFACTURING PROFESSIONAL Antibody Pending Scl-70 Scleroderma Ab Pending Double Strand DNA Ab Pending Centromere B Antibody Pending Glomerular Base Memb Ab Complement C3 Complement C4 Hep Bs Antigen Hep Bs Antibody Hep B Core Total Ab 06/23/19 06/23/19 06/23/19 10:40 10:40 10:40 WBC RBC Hgb Hct MCV MCH MCHC RDW Std Deviation RDW Coeff of Norma Plt Count MPV Immature Gran % (Auto) Neut % (Auto) Lymph % (Auto) [place] % (Auto) Eos % (Auto) Baso % (Auto) Absolute Neuts (auto) Absolute Lymphs (auto) Nucleated RBC % Differential Comment Diff Path Review Macrocytosis Sodium Potassium Chloride Carbon Dioxide Anion Gap BUN Creatinine Estim Creat Clear Calc Est GFR (MDRD) Af Amer Est GFR (MDRD) Non-Af BUN/Creatinine Ratio Glucose Calcium GUILLAUME Screen c-ANCA Antibody Pending p-ANCA Antibody Pending JASBIR-1 Antibody SS-A/Ro IgG Antibody SS-B/La IgG Antibody Sm (Powell) Antibody PRODUCT MANUFACTURING PROFESSIONAL Antibody Scl-70 Scleroderma Ab Double Strand DNA Ab Centromere B Antibody Glomerular Base Memb Ab Pending Complement C3 Pending Complement C4 Pending Hep Bs Antigen Hep Bs Antibody Hep B Core Total Ab POC Glucose 06/23/19 06/23/19 06/22/19 11:19 06:27 22:02 POC Glucose 131 H 58 L 107 06/22/19 06/22/19 18:38 17:23 POC Glucose 122 H 64 L Medical Necessity - Tobacco Use Smoking Status: Never smoker Tobacco Use: Non-smoker Route of nutrition/ use of supplements: [] Nutritional Intake: [] IV Site: [] Pabon Catheter: [] - Assessment/Plan Antibiotics: [] Assessment/Plan: [] Active and Suspected Problems (Last Updated 06/22/19 @ 09:17 by Fahad Sesay MD) Clostridium difficile colitis (Acute) JORGE (acute kidney injury) (Acute) cdiff diarrhea with JORGE on CKD - cont po vanc. Sx much improved. Day 2 of vanc today, plan on 10 day course, stop date 07/03/19. Counseled re:risk of recurrent infection. Will follow
[2019-06-23] MEDS: cloNIDine HCl 0.1 MG Tablet PO ×2 (15:29→21:06)
--- NOTE | 2019-06-23 15:59 | DIALYSIS ---
Report from primary RN, Mary Ann Rich Access: Left forearm AVF: site has small infiltration, bruit and thrill present, cannulated with 17 gauge needles x2. Cannulated above infiltration. Connection visible and secure.
[2019-06-23 17:05] LABS: Bedside Glucose 87 mg/dL (70-110)
--- NOTE | 2019-06-23 19:12 | DIALYSIS ---
Hemodialysis complete. 2.5 hour run, 2k bath, net fluid removed = 2000 ml. Patient tolerated HD tx well. Left forearm AVF: site benign, thrill and bruit present, needle site pressure held 10 minutes each. Hemostasis achieved. Report given to primary RN, Mary Ann Rich.
--- NOTE | 2019-06-23 20:25 | NURSING ---
This RN and student nurse were in patients room, [facility] attempted x2. Was able to be obtained with second attempt, however, only a scant amount of urine was obtained- clear pale yellow with no odor noted. It was not enough to fill the lab tubes to send down. Patient is incontinent and receiving HD while here. Will attempt again later.
[2019-06-23] MEDS: Atorvastatin Calcium 40 MG Tablet PO (21:07)
[2019-06-23] MEDS: 0.9% NaCl Peripheral Flush Adult/Peds IV (21:09)
[2019-06-23 23:11] LABS: Bedside Glucose 141 mg/dL (70-110)
[2019-06-24] VITALS (7 sets, daily range): BP systolic 137–151; BP diastolic 57–78; PULSE 47–72; RESP 16–23; TEMP 36.4–37.4; O2SAT 96–100
--- NOTE | 2019-06-24 01:02 | NURSING ---
This RN was able to collect urine specimens via st. cath, small amount of urine was collected. This RN spoke with lab, lab stated that it was okay for the amount that was obtained.
[2019-06-24 01:05] LABS: Mucous, Urine 0 SEEN /hpf (<or=2+); Squamous Epithelial Cells - UA 0 SEEN /hpf (5-10)
[2019-06-24 01:13] LABS: Color, Urine Yellow (Yellow); Glucose, Dipstick Normal (Normal); Ketone-Dipstick Negative (Negative); Leukocyte Esterase-Dipstick 500 /ul (Negative); Nitrite-Dipstick Negative (Negative); Occult Blood-Urine 150 /ul (Negative); Protein-Dipstick 30 mg/dl (Negative); Specific Gravity, Urine 1.025 (1.002-1.030); Urine Clarity Sl. Cloudy (Clear); Urine Urobilinogen Normal (Normal)
[2019-06-24 01:16] LABS: Urine Bilirubin Dipstick 1 mg/dL (Negative)
[2019-06-24 01:21] LABS: Bacteria RARE /hpf (None Seen); Hyaline Cast 0-5 SEEN /lpf (0-5)
[2019-06-24 01:22] LABS: Red Blood Cells-Urine 0-5 SEEN /hpf (0-5)
[2019-06-24 01:23] LABS: White Blood Cells 25-50 SEEN /hpf (0-5)
[2019-06-24] MEDS: Acetaminophen 325 MG Tablet 650 MG PO ×2 (01:37→11:18)
[2019-06-24 07:41] LABS: Bedside Glucose 105 mg/dL (70-110)
[2019-06-24 08:13] LABS: Absolute Lymphocyte Count 0.54 X10^3/uL (0.83-4.51); Absolute Neutrophil Count 2.4 X10^3/uL (2.0-7.7); Basophil# 0.01 X10^3/uL; Basophil% 0.3 % (0-1); Eosinophil# 0.05 X10^3/uL; Eosinophils% 1.5 % (0-5); Hematocrit 30.2 % (37-47); Hemoglobin 8.9 g/dL (12.0-15.0); Lymphocyte # 0.54 X10^3/ul (4.0); Lymphocyte % 15.9 % (19-41); Mean Corp Hgb Conc 29.5 g/dL (32-36); Mean Corpuscular Hgb 30.3 pg (27.0-32.0); Mean Corpuscular Volume 102.7 fL (81-99); Mean Platelet Vol. 10.8 fl (6.2-12.0); Monocyte% 11.8 % (0-10); NRBC Flagged by Analyzer 0 % (0-5); Neutrophil # 2.38 X10^3/uL (2.7-7.7); Neutrophil % 70.2 % (47-70); POSITIVE COUNT YES; POSITIVE DIFFERENTIAL YES; Platelet Count 74 K/mm3 (150-450); RBC Distribution Width CV 15.9 % (11.6-14.6); RBC Distribution Width SD 59.7 fl (35.1-43.9); Red Blood Count 2.94 M/mm3 (4.2-5.4); White Blood Count 3.4 K/mm3 (4.4-11.0)
[2019-06-24 08:16] LABS: Anion Gap 8 (5-15); BUN 60 mg/dL (7-18); BUN/Creat Ratio 15.2 RATIO (10-20); Calcium,Total 7.6 mg/dL (8.5-10.1); Chloride 106 mmol/L (98-107); Creatinine, Serum 3.95 mg/dL (0.55-1.02); Differential Indicated SCAN CRITERIA MET; EST Glomerular Filtration Rate 12 mL/min (>60); Est Glom Filt Rate - Afr Amer 14 mL/min (>60); Estimated Creatinine Clearance 11.75 ml/min; Glucose 99 mg/dL (74-106); Potassium 3.9 mmol/L (3.5-5.1); Sodium Level 142 mmol/L (136-145)
[2019-06-24 08:34] LABS: Basophilic Stippling RARE; Hypochromasia 2+; Macrocytosis 1+; Platelet Estimate MOD DEC (ADEQ); Polychromasia RARE
--- NOTE | 2019-06-24 10:00 | CASEMGMT ---
ELI STARR called and left message with Machelle Powell change control coordinator at [facility] regarding outpatient HD setup. ELI STARR called [facility] for tentative schedule for outpatient HD so that can arrange transportation. [facility] states that schedule will probably be TTS 1200. ELI STARR updated patient's and told that setup has not been finalized. ELI STARR will continue to follow this patient and plan for a safe discharge.
--- NOTE | 2019-06-24 10:04 | PCM.PN.REN ---
Patient Problems: Active and Suspected Problems (Last Updated 06/22/19 @ 09:17 by Fahad Sesay MD) C. difficile diarrhea (Acute) Clostridium difficile colitis (Acute) JORGE (acute kidney injury) (Acute) Subjective: Patient is doing better. No nausea no vomiting. No shortness of breath. Patient was seen during her third hemodialysis session - Physical Exam General: Alert, Oriented x3 HEENT: Atraumatic Oral: Moist Mucosa Neck: Supple, No JVD Lungs: Clear to auscultation, Normal air movement, No rhonchi, No wheeze Cardiovascular: Regular rate, Regular Rhythm, Normal S1, Normal S2 Abdomen: Bowel Sounds Present, Soft, Non Tender Extremities: No clubbing, No cyanosis, No edema Skin: No rashes Musculoskeletal: No Tenderness to Palpation of Joints or Extremities Lymphatic: No Cervical, Supraclavicular, or Inguinal Adenopathy Neurological: Cranial nerves II-XII grossly intact, Neuro grossly intact Psych/Mental Status: Appropriate Vital Signs Temp Pulse Resp BP Pulse Ox 97.6 F L 47 L 23 H 137/57 H 99 06/24/19 01:05 06/24/19 07:34 06/24/19 07:34 06/24/19 01:05 06/24/19 07:34 Oxygen Flow Rate (L/min) 4 Oxygen Delivery Method Bi-pap Weight: 115.3 kg Body Mass Index (BMI) 40.5 Finger Stick Blood Glucose 500 Intake and Output for Last 24 Hours 06/22/19 06/23/19 06/24/19 23:59 23:59 23:59 Intake Total 2097.5 / 2217.5 1260 / 1260 Output Total 2200 / 2200 1999 / 1999 Balance -102.5 / 17.5 -740 / -740 Microbiology Past 72 Hours 06/21/19 14:20 Enteric Bacteriology - Final Stool 06/21/19 14:20 Stool Lactoferrin - Final Stool 06/21/19 14:20 C. difficile DNA Amplification - Final Stool Toxigenic C. difficile DNA Laboratory Tests Past 24 Hrs 06/22/19 06/23/19 06/23/19 14:00 10:40 10:40 WBC RBC Hgb Hct MCV MCH MCHC RDW Std Deviation RDW Coeff of Norma Plt Count MPV Immature Gran % (Auto) Neut % (Auto) Lymph % (Auto) [place] % (Auto) Eos % (Auto) Baso % (Auto) Absolute Neuts (auto) Absolute Lymphs (auto) Nucleated RBC % Diff Path Review Platelet Estimate Polychromasia Hypochromasia Basophilic Stippling Macrocytosis Sodium Potassium Chloride Carbon Dioxide Anion Gap BUN Creatinine Estim Creat Clear Calc Est GFR (MDRD) Af Amer Est GFR (MDRD) Non-Af BUN/Creatinine Ratio Glucose Calcium Urine Color Urine Clarity Urine pH Ur Specific [place] Urine Protein Urine Glucose (UA) Urine Ketones Urine Occult Blood Urine Nitrite Urine Bilirubin Urine Urobilinogen Ur Leukocyte Esterase Urine RBC Urine WBC Ur Squamous Epith Cells Urine Bacteria Hyaline Casts Urine Mucus GUILLAUME Screen Pending c-ANCA Antibody Pending p-ANCA Antibody Pending JASBIR-1 Antibody Pending SS-A/Ro IgG Antibody Pending SS-B/La IgG Antibody Pending Sm (Powell) Antibody Pending ELEMENTARY READING SPECIALIST Antibody Pending Scl-70 Scleroderma Ab Pending Double Strand DNA Ab Pending Centromere B Antibody Pending Glomerular Base Memb Ab Complement C3 Complement C4 Hep B Core Total Ab Negative 06/23/19 06/23/19 06/24/19 10:40 10:40 01:00 WBC RBC Hgb Hct MCV MCH MCHC RDW Std Deviation RDW Coeff of Norma Plt Count MPV Immature Gran % (Auto) Neut % (Auto) Lymph % (Auto) [place] % (Auto) Eos % (Auto) Baso % (Auto) Absolute Neuts (auto) Absolute Lymphs (auto) Nucleated RBC % Diff Path Review Platelet Estimate Polychromasia Hypochromasia Basophilic Stippling Macrocytosis Sodium Potassium Chloride Carbon Dioxide Anion Gap BUN Creatinine Estim Creat Clear Calc Est GFR (MDRD) Af Amer Est GFR (MDRD) Non-Af BUN/Creatinine Ratio Glucose Calcium Urine Color Yellow Urine Clarity Sl. Cloudy Urine pH 5.0 Ur Specific [place] 1.025 Urine Protein 30 H Urine Glucose (UA) Normal Urine Ketones Negative Urine Occult Blood 150 H Urine Nitrite Negative Urine Bilirubin 1 H Urine Urobilinogen Normal Ur Leukocyte Esterase 500 H Urine RBC 0-5 SEEN Urine WBC 25-50 SEEN Ur Squamous Epith Cells 0 SEEN Urine Bacteria RARE Hyaline Casts 0-5 SEEN Urine Mucus 0 SEEN GUILLAUME Screen c-ANCA Antibody p-ANCA Antibody JASBIR-1 Antibody SS-A/Ro IgG Antibody SS-B/La IgG Antibody Sm (Powell) Antibody ELEMENTARY READING SPECIALIST Antibody Scl-70 Scleroderma Ab Double Strand DNA Ab Centromere B Antibody Glomerular Base Memb Ab Pending Complement C3 Pending Complement C4 Pending Hep B Core Total Ab 06/24/19 06/24/19 07:52 07:52 WBC 3.4 L RBC 2.94 L Hgb 8.9 L Hct 30.2 L MCV 102.7 H MCH 30.3 MCHC 29.5 L RDW Std Deviation 59.7 H RDW Coeff of Norma 15.9 H Plt Count 74 L MPV 10.8 Immature Gran % (Auto) 0.300 Neut % (Auto) 70.2 H Lymph % (Auto) 15.9 L [place] % (Auto) 11.8 H Eos % (Auto) 1.5 Baso % (Auto) 0.3 Absolute Neuts (auto) 2.4 Absolute Lymphs (auto) 0.54 L Nucleated RBC % 0 Diff Path Review May foll Platelet Estimate MOD DEC Polychromasia RARE Hypochromasia 2+ Basophilic Stippling RARE Macrocytosis 1+ Sodium 142 Potassium 3.9 Chloride 106 Carbon Dioxide 28.0 Anion Gap 8 BUN 60 H Creatinine 3.95 H Estim Creat Clear Calc 11.75 Est GFR (MDRD) Af Amer 14 L Est GFR (MDRD) Non-Af 12 L BUN/Creatinine Ratio 15.2 Glucose 99 Calcium 7.6 L Urine Color Urine Clarity Urine pH Ur Specific [place] Urine Protein Urine Glucose (UA) Urine Ketones Urine Occult Blood Urine Nitrite Urine Bilirubin Urine Urobilinogen Ur Leukocyte Esterase Urine RBC Urine WBC Ur Squamous Epith Cells Urine Bacteria Hyaline Casts Urine Mucus GUILLAUME Screen c-ANCA Antibody p-ANCA Antibody JASBIR-1 Antibody SS-A/Ro IgG Antibody SS-B/La IgG Antibody Sm (Powell) Antibody ELEMENTARY READING SPECIALIST Antibody Scl-70 Scleroderma Ab Double Strand DNA Ab Centromere B Antibody Glomerular Base Memb Ab Complement C3 Complement C4 Hep B Core Total Ab POC Glucose 06/24/19 06/23/19 06/23/19 07:35 20:59 16:59 POC Glucose 105 141 H 87 06/23/19 11:19 POC Glucose 131 H Medical Necessity - Tobacco Use Smoking Status: Never smoker Tobacco Use: Non-smoker Assessment/Plan All Active Problems (Last Updated 06/22/19 @ 09:17 by Fahad Sesay MD) C. difficile diarrhea (Acute) Clostridium difficile colitis (Acute) JORGE (acute kidney injury) (Acute) 1-acute kidney injury and chronic kidney disease stage IV with baseline creatinine around 2.7 mg/dL. Patient follows with in renal clinic. Acute kidney injury is likely from ATN related to severe prerenal status. Pt also has h/o ANCA+. UA is not impressive for nephritic syndrome .UA did not show RBCs .it shows only 30 protein . C3/C4, GUILLAUME, ANCA and antiGBM are all still pending No need for kidney biopsy for now Pt is likely ESRD now . HD started 06/22 Patient was seen during the third hemodialysis session today with blood flow rate 300, dialysate flow rate 600, ultrafiltration 2.5 L Hemodialysis access is left upper extremity AV fistula which seems functioning well with 17-gauge needle 2-hyponatremia. resolved with HD. 3-hypertension: Blood pressure is well controlled. continue same BP meds 4-C. difficile colitis. On oral vancomycin as per the primary service.better Thank you for allowing me to participate in Mrs. Garcia's care. Please call if any question concern at [phone]. Okay to discharge the patient home today from nephrology standpoint if she has a spot for hemodialysis Nidia Jones MD
--- NOTE | 2019-06-24 10:52 | PN.ID_ITS ---
Patient Problems: Active and Suspected Problems (Last Updated 06/22/19 @ 09:17 by Fahad Sesay MD) C. difficile diarrhea (Acute) Clostridium difficile colitis (Acute) JORGE (acute kidney injury) (Acute) Subjective: Feeling better, solid stool, no fever, no abd pain - Physical Exam General: Alert, Cooperative, No apparent distress Lungs: Clear to auscultation, Normal air movement Cardiovascular: Regular rate, Regular Rhythm Abdomen: Soft, Non Tender, Non-Distended Skin: No rashes Vital Signs Temp Pulse Resp BP Pulse Ox 97.6 F L 72 23 H 137/57 H 99 06/24/19 01:05 06/24/19 10:00 06/24/19 07:34 06/24/19 01:05 06/24/19 07:34 Oxygen Flow Rate (L/min) 3.5 Oxygen Delivery Method Nasal Cannula Weight: 115.3 kg Body Mass Index (BMI) 40.5 Finger Stick Blood Glucose 500 Intake and Output for Last 24 Hours 06/22/19 06/23/19 06/24/19 23:59 23:59 23:59 Intake Total 2097.5 / 2217.5 1260 / 1260 Output Total 2200 / 2200 1999 / 1999 Balance -102.5 / 17.5 -740 / -740 Microbiology Past 72 Hours 06/21/19 14:20 Enteric Bacteriology - Final Stool 06/21/19 14:20 Stool Lactoferrin - Final Stool 06/21/19 14:20 C. difficile DNA Amplification - Final Stool Toxigenic C. difficile DNA Laboratory Tests Past 24 Hrs 06/22/19 06/23/19 06/23/19 14:00 10:40 10:40 WBC RBC Hgb Hct MCV MCH MCHC RDW Std Deviation RDW Coeff of Norma Plt Count MPV Immature Gran % (Auto) Neut % (Auto) Lymph % (Auto) [place] % (Auto) Eos % (Auto) Baso % (Auto) Absolute Neuts (auto) Absolute Lymphs (auto) Nucleated RBC % Diff Path Review Platelet Estimate Polychromasia Hypochromasia Basophilic Stippling Macrocytosis Sodium Potassium Chloride Carbon Dioxide Anion Gap BUN Creatinine Estim Creat Clear Calc Est GFR (MDRD) Af Amer Est GFR (MDRD) Non-Af BUN/Creatinine Ratio Glucose Calcium Urine Color Urine Clarity Urine pH Ur Specific [place] Urine Protein Urine Glucose (UA) Urine Ketones Urine Occult Blood Urine Nitrite Urine Bilirubin Urine Urobilinogen Ur Leukocyte Esterase Urine RBC Urine WBC Ur Squamous Epith Cells Urine Bacteria Hyaline Casts Urine Mucus GUILLAUME Screen Pending c-ANCA Antibody Pending p-ANCA Antibody Pending JASBIR-1 Antibody Pending SS-A/Ro IgG Antibody Pending SS-B/La IgG Antibody Pending Sm (Powell) Antibody Pending EMPLOYEE'S REPRESENTATIVE Antibody Pending Scl-70 Scleroderma Ab Pending Double Strand DNA Ab Pending Centromere B Antibody Pending Glomerular Base Memb Ab Complement C3 Complement C4 Hep B Core Total Ab Negative 06/23/19 06/23/19 06/24/19 10:40 10:40 01:00 WBC RBC Hgb Hct MCV MCH MCHC RDW Std Deviation RDW Coeff of Norma Plt Count MPV Immature Gran % (Auto) Neut % (Auto) Lymph % (Auto) [place] % (Auto) Eos % (Auto) Baso % (Auto) Absolute Neuts (auto) Absolute Lymphs (auto) Nucleated RBC % Diff Path Review Platelet Estimate Polychromasia Hypochromasia Basophilic Stippling Macrocytosis Sodium Potassium Chloride Carbon Dioxide Anion Gap BUN Creatinine Estim Creat Clear Calc Est GFR (MDRD) Af Amer Est GFR (MDRD) Non-Af BUN/Creatinine Ratio Glucose Calcium Urine Color Yellow Urine Clarity Sl. Cloudy Urine pH 5.0 Ur Specific [place] 1.025 Urine Protein 30 H Urine Glucose (UA) Normal Urine Ketones Negative Urine Occult Blood 150 H Urine Nitrite Negative Urine Bilirubin 1 H Urine Urobilinogen Normal Ur Leukocyte Esterase 500 H Urine RBC 0-5 SEEN Urine WBC 25-50 SEEN Ur Squamous Epith Cells 0 SEEN Urine Bacteria RARE Hyaline Casts 0-5 SEEN Urine Mucus 0 SEEN GUILLAUME Screen c-ANCA Antibody p-ANCA Antibody JASBIR-1 Antibody SS-A/Ro IgG Antibody SS-B/La IgG Antibody Sm (Powell) Antibody EMPLOYEE'S REPRESENTATIVE Antibody Scl-70 Scleroderma Ab Double Strand DNA Ab Centromere B Antibody Glomerular Base Memb Ab Pending Complement C3 Pending Complement C4 Pending Hep B Core Total Ab 06/24/19 06/24/19 07:52 07:52 WBC 3.4 L RBC 2.94 L Hgb 8.9 L Hct 30.2 L MCV 102.7 H MCH 30.3 MCHC 29.5 L RDW Std Deviation 59.7 H RDW Coeff of Norma 15.9 H Plt Count 74 L MPV 10.8 Immature Gran % (Auto) 0.300 Neut % (Auto) 70.2 H Lymph % (Auto) 15.9 L [place] % (Auto) 11.8 H Eos % (Auto) 1.5 Baso % (Auto) 0.3 Absolute Neuts (auto) 2.4 Absolute Lymphs (auto) 0.54 L Nucleated RBC % 0 Diff Path Review May foll Platelet Estimate MOD DEC Polychromasia RARE Hypochromasia 2+ Basophilic Stippling RARE Macrocytosis 1+ Sodium 142 Potassium 3.9 Chloride 106 Carbon Dioxide 28.0 Anion Gap 8 BUN 60 H Creatinine 3.95 H Estim Creat Clear Calc 11.75 Est GFR (MDRD) Af Amer 14 L Est GFR (MDRD) Non-Af 12 L BUN/Creatinine Ratio 15.2 Glucose 99 Calcium 7.6 L Urine Color Urine Clarity Urine pH Ur Specific [place] Urine Protein Urine Glucose (UA) Urine Ketones Urine Occult Blood Urine Nitrite Urine Bilirubin Urine Urobilinogen Ur Leukocyte Esterase Urine RBC Urine WBC Ur Squamous Epith Cells Urine Bacteria Hyaline Casts Urine Mucus GUILLAUME Screen c-ANCA Antibody p-ANCA Antibody JASBIR-1 Antibody SS-A/Ro IgG Antibody SS-B/La IgG Antibody Sm (Powell) Antibody EMPLOYEE'S REPRESENTATIVE Antibody Scl-70 Scleroderma Ab Double Strand DNA Ab Centromere B Antibody Glomerular Base Memb Ab Complement C3 Complement C4 Hep B Core Total Ab POC Glucose 06/24/19 06/23/19 06/23/19 07:35 20:59 16:59 POC Glucose 105 141 H 87 06/23/19 11:19 POC Glucose 131 H Medical Necessity - Tobacco Use Smoking Status: Never smoker Tobacco Use: Non-smoker Route of nutrition/ use of supplements: [] Nutritional Intake: [] IV Site: [] Pabon Catheter: [] - Assessment/Plan Antibiotics: [] Assessment/Plan: [] Active and Suspected Problems (Last Updated 06/22/19 @ 09:17 by Fahad Sesay MD) Clostridium difficile colitis (Acute) JORGE (acute kidney injury) (Acute) cdiff diarrhea with JORGE on CKD - cont po vanc. Sx much improved. Day 3 of vanc today, plan on 10 day course, stop date 07/03/19. Counseled re:risk of recurrent infection. Will follow as needed, please call with any questions
--- NOTE | 2019-06-24 11:18 | DIALYSIS ---
Hemodialysis x3hrs today. Patient tolerated tx well. UF -2500mL rmeoved. Pt stable. Report to ELI Reese. [place] removed from left lower forearm AVF. Stasis achieved and dressings applied.
[2019-06-24] MEDS: Aspirin 325 MG Tablet PO (11:19)
[2019-06-24] MEDS: Amiodarone 200 MG Tablet PO (11:19)
[2019-06-24] MEDS: Escitalopram Oxalate 10 MG Tablet PO (11:19)
[2019-06-24] MEDS: Heparin Injection (Vial) 5,000 UNIT/ML VIAL 5000 UNIT SC (11:19)
[2019-06-24] MEDS: Calcitriol 0.25 MCG Capsule PO (11:19)
[2019-06-24] MEDS: Nystatin Powder 15gm Bottle 1 APPLIC TOPICAL (11:20)
[2019-06-24 11:30] LABS: Bedside Glucose 122 mg/dL (70-110)
--- NOTE | 2019-06-24 12:32 | PCM.PROGNOTE ---
Patient Problems: Active and Suspected Problems (Last Updated 06/22/19 @ 09:17 by Fahad Sesay MD) C. difficile diarrhea (Acute) Clostridium difficile colitis (Acute) JORGE (acute kidney injury) (Acute) Subjective: Chief complaint: Follow-up after admission for acute kidney injury on top of stage IV chronic kidney disease, acute C. difficile colitis and acute on chronic hypercapnic respiratory failure. Patient seen and examined. No acute events overnight. Today, she is feeling better, shortness of breath has been continuing slowly. Denies any diarrhea. Denies abdominal pain, nausea vomiting. All over, she is feeling better. She is off BiPAP, pulse ox is 96% on 3 L. - Physical Exam General: Alert, Oriented x3, Cooperative, No apparent distress HEENT: Atraumatic, PERRLA, EOMI, Normocephalic Oral: Moist Mucosa, No Gingival or Mucosal Lesions/ Ulcerations Neck: Supple, No JVD, Negative Carotid Bruits, Trachea Midline, Thyroid Normal Size and Texture Lungs: Normal air movement, No rhonchi, No wheeze, No rales, Diminished Cardiovascular: Regular rate, Regular Rhythm, Normal S1, Normal S2, PMI Normal Abdomen: Bowel Sounds Present, Soft, Non Tender, Non-Distended, No Hepato-splenomegaly, Obese Extremities: No clubbing, No cyanosis, No edema Skin: No rashes, No breakdown Lymphatic: No Cervical, Supraclavicular, or Inguinal Adenopathy Neurological: Cranial nerves II-XII grossly intact, Neuro grossly intact Psych/Mental Status: Normal Affect, Appropriate, Alert and oriented to time, place, person, mood and affect Vital Signs Temp Pulse Resp BP Pulse Ox 99.4 F H 65 18 151/73 H 96 06/24/19 11:30 06/24/19 11:30 06/24/19 11:30 06/24/19 11:30 06/24/19 11:30 Oxygen Flow Rate (L/min) 3.5 Oxygen Delivery Method Nasal Cannula Weight: 243 lb 9.773 oz Body Mass Index (BMI) 40.5 Finger Stick Blood Glucose 500 Intake and Output for Last 24 Hours 06/22/19 06/23/19 06/24/19 23:59 23:59 23:59 Intake Total 2097.5 / 2217.5 1260 / 1260 400 / 400 Output Total 2200 / 2200 1999 / 1999 2500 / 2500 Balance -102.5 / 17.5 -740 / -740 -2100 / -2100 Microbiology Past 72 Hours 06/21/19 14:20 Enteric Bacteriology - Final Stool 06/21/19 14:20 Stool Lactoferrin - Final Stool 06/21/19 14:20 C. difficile DNA Amplification - Final Stool Toxigenic C. difficile DNA Laboratory Tests Past 24 Hrs 06/24/19 06/24/19 06/24/19 01:00 07:52 07:52 WBC 3.4 L RBC 2.94 L Hgb 8.9 L Hct 30.2 L MCV 102.7 H MCH 30.3 MCHC 29.5 L RDW Std Deviation 59.7 H RDW Coeff of Norma 15.9 H Plt Count 74 L MPV 10.8 Immature Gran % (Auto) 0.300 Neut % (Auto) 70.2 H Lymph % (Auto) 15.9 L Garza % (Auto) 11.8 H Eos % (Auto) 1.5 Baso % (Auto) 0.3 Absolute Neuts (auto) 2.4 Absolute Lymphs (auto) 0.54 L Nucleated RBC % 0 Diff Path Review May foll Platelet Estimate MOD DEC Polychromasia RARE Hypochromasia 2+ Basophilic Stippling RARE Macrocytosis 1+ Sodium 142 Potassium 3.9 Chloride 106 Carbon Dioxide 28.0 Anion Gap 8 BUN 60 H Creatinine 3.95 H Estim Creat Clear Calc 11.75 Est GFR (MDRD) Af Amer 14 L Est GFR (MDRD) Non-Af 12 L BUN/Creatinine Ratio 15.2 Glucose 99 Calcium 7.6 L Urine Color Yellow Urine Clarity Sl. Cloudy Urine pH 5.0 Ur Specific [place] 1.025 Urine Protein 30 H Urine Glucose (UA) Normal Urine Ketones Negative Urine Occult Blood 150 H Urine Nitrite Negative Urine Bilirubin 1 H Urine Urobilinogen Normal Ur Leukocyte Esterase 500 H Urine RBC 0-5 SEEN Urine WBC 25-50 SEEN Ur Squamous Epith Cells 0 SEEN Urine Bacteria RARE Hyaline Casts 0-5 SEEN Urine Mucus 0 SEEN POC Glucose 06/24/19 06/24/19 06/23/19 11:12 07:35 20:59 POC Glucose 122 H 105 141 H 06/23/19 16:59 POC Glucose 87 Medical Necessity - Tobacco Use Smoking Status: Never smoker Tobacco Use: Non-smoker Assessment/Plan All Active Problems (Last Updated 06/22/19 @ 09:17 by Fahad Sesay MD) C. difficile diarrhea (Acute) Clostridium difficile colitis (Acute) JORGE (acute kidney injury) (Acute) This is a 73 years old female patient was sent to ED by her patient financial services specialist for nausea, vomiting and worsening kidney function and she was found to have acute C. difficile colitis, acute kidney injury on top of stage IV chronic kidney disease requiring to start back on hemodialysis. #1 acute C. difficile colitis: She is on oral vancomycin. He has no more diarrhea, denies abdominal pain. She has been afebrile, heart rate improved, blood pressure is maintained. Plan to continue same treatment. Plan as below. #2 acute kidney injury on top of stage IV chronic kidney disease: She is on hemodialysis this morning, this is her third session since admission. Volume status is stabilized. Kidney function has been improving. Over the last year, creatinine is been around 2 to 3 mg/dL. Admission creatinine 6.41, came down to 3.95 today after dialysis. BUN is down to 60. Nephrology on the case. We are awaiting to schedule dialysis as outpatient and then patient will be discharged home with home health. #3 acute on chronic hypercapnic respiratory failure: Secondary to volume overload. Volume status stabilized after hemodialysis. Respiratory status getting better, patient has been off BiPAP and now, she is on oxygen at 3.5 L which is her baseline at home. #4 COPD/chronic hypoxic respiratory failure: Patient has been on oxygen at home at 3.5 L, it is multifactorial secondary to COPD, chronic CHF and obesity. Plan as above. #5 chronic diastolic CHF: Volume status improved after hemodialysis. Will resume metoprolol and Lasix, discontinue metolazone. #6 hypertension: Blood pressure stable, continue clonidine, IV hydralazine PRN. Will resume metoprolol today. #7 chronic anemia: Probably due to anemia of chronic disease, hemoglobin is been around 8 to 10 g/dL. Today's hemoglobin is 8.9 g/dL. Stable at baseline. #8 paroxysmal atrial fibrillation: She has been bradycardic, continue amiodarone and Catapres for rate control. She is not on anticoagulation. #9 scleroderma/crest syndrome: Recommended follow-up with pulmonary as outpatient. #10 type 2 diabetes mellitus: Blood sugar stable, she is on sliding scale. At home, she has been on glargine insulin twice daily in addition to sliding scale. #11 DVT prophylaxis: Subcu heparin. This note was generated with [employer] dictation software. It may contain incorrect words, spelling, and punctuation that were not noted in checking the note before signing. Code Visit Inpatient E&M: 21775 Subs Hosp L2
--- NOTE | 2019-06-24 12:39 | DCINST_ITS ---
- Discharge Diagnoses Current Active Problems: Current Active and Chronic Problems (Last Updated 06/22/19 @ 09:17 by Fahad Sesay MD) C. difficile diarrhea (Acute) Clostridium difficile colitis (Acute) JORGE (acute kidney injury) (Acute) HLD (hyperlipidemia) (Chronic) Chronic obstructive pulmonary disease (Chronic) Chronic respiratory failure with hypoxia (Chronic) You will use the following diet at home:: Calorie/Carbohydrate Controlled (specify 1200, 1400, etc) - 1800 travis, Cardiac, Renal (restricted protein/sodium) Your food should be the consistency of: Regular Discharge Activity: Return to Normal Activity Weight Bearing Status: Weight bearing as tolerated Call your doctor if you observe: Fever of 101 or Higher, Shortness of breath, Dizziness, Fainting spells, Chest pain, Increased palpitations (irregular heartbeat), Uncontrolled pain Allergies/Adverse Reactions: Allergies No Known Allergies Allergy (Verified 06/21/19 12:56) Medications to take at Discharge Insulin Aspart [Novolog Flexpen] See Protocol SQ 4X/DAY 03/01/18 pantoprazole 40 mg tablet,delayed release 40 mg PO DAILY 04/06/18 calcitriol 0.25 mcg capsule 0.25 mcg PO DAILY 09/09/18 Acetaminophen [Tylenol Tablet] 650 mg PO Q6H PRN PRN tab 11/15/18 Nystatin Powder [Mycostatin Powder] 1 applic TOPICAL BID #1 bottle 11/15/18 insulin glargine (U-100) 100 unit/mL subcutaneous solution 25 unit SC BID ml 12/15/18 metoprolol succinate ER 25 mg tablet,extended release 24 hr 12.5 mg PO DAILY tab 12/30/18 aspirin 325 mg tablet 325 mg PO BID tab 02/23/19 escitalopram 10 mg tablet 10 mg PO DAILY 02/23/19 furosemide 80 mg tablet 80 mg PO DAILY 02/23/19 Amiodarone HCl 200 mg PO DAILY 06/21/19 Atorvastatin Calcium [Lipitor] 40 mg PO DAILY 06/21/19 Clonidine HCl [Catapres] 0.1 mg PO TID 06/21/19 Vancomcyin 125mg/5mL PO Liquid 125 mg PO Q6 8 Days #32 po.syringe 06/24/19 The following prescriptions were given: Vancomcyin 125mg/5mL PO Liquid 125 mg PO Q6 8 Days #32 po.syringe Transmission Status: Received by [facility] Primary Care Physician: Zeenat Harp MD [Primary Care Provider] - Please follow up with your Primary Care Physician in: 1 week. Test Results: Test results from this visit will be discussed in further detail at your follow- up appointment, if applicable. Please Follow Up With: Nidia Jones MD When: 2 weeks.
--- NOTE | 2019-06-24 12:50 | CASEMGMT ---
ELI STARR called Tmari at [facility], no answer. ELI STARR called and spoke to Perla Hernandez, [facility] and Patient Meal Miller regarding status of referral. Perla states she is inquiring as to what the hold up is with referral and will call this RN RO back with updated. ELI STARR updated patient's that HD setup has not been confirmed. CM will continue to monitor this patient and plan for a safe discharge.
--- NOTE | 2019-06-24 14:00 | CASEMGMT ---
ELI STARR received update from Perla at [facility] that outpt HD setup is confirmed for TTS 1200 with first chair time for Friday06/26/19 for 1130. ELI STARR updated . ELI STARR updated [facility] regarding discharge for today.
--- NOTE | 2019-06-24 14:30 | PCM.DC.SUM ---
Discharge Date and Diagnosis Date of Admission: 06/21/19 Date of Discharge: 06/24/19 - Primary Discharge Diagnosis Active and Suspected Problems (Last Updated 06/22/19 @ 09:17 by Fahad Sesay MD) #1 acute C. difficile colitis. #2 acute kidney injury top of stage IV chronic kidney disease, started back on dialysis. #3 acute on chronic hypercapnic respiratory failure. #4 E. coli acute cystitis. 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 Electronically Signed: Jordin Polk DO at 20:34 EDT Tel [phone], Service support , Dr. Jones, nephrology. Dr. david, infectious disease Operations: None Procedures: Dialysis, EKG Summary of Care Provided: This is a 73 years old female patient was sent to ED by her drafter (cad) electrical for nausea, vomiting and worsening kidney function and she was found to have acute C. difficile colitis, acute kidney injury on top of stage IV chronic kidney disease requiring to start back on hemodialysis. #1 acute C. difficile colitis: Treated with oral vancomycin. With treatment, patient symptoms improved, had no more diarrhea, nausea vomiting. And her vital signs are stabilized. Patient discharged on oral vancomycin for 8 days more to complete total 12 days of treatment. #2 acute kidney injury on top of stage IV chronic kidney disease: Nephrology consulted and patient started back on hemodialysis. She received 3 sessions of hemodialysis and 3 consecutive days. Her kidney function improved. On admission, BUN was 128 and creatinine was 6.38. After hemodialysis, creatinine came down to 3.95 and BUN went down to 60. Nephrology decided to start patient back on dialysis as she has been off dialysis for the last year because of improved kidney function. Outpatient hemodialysis scheduled by the case resolution specialist and patient will follow-up with nephrology as outpatient. Patient started back on Lasix upon discharge, metolazone discontinued. #3 acute on chronic hypercapnic respiratory failure: Secondary to volume overload. Treated with hemodialysis as well as BiPAP. With diuresis and BiPAP, symptoms improved and patient was able to come off oxygen and upon discharge, pulse ox was 97% on 3.5 L of oxygen which is her baseline at home. #4 COPD/chronic hypoxic respiratory failure: Discharged on oxygen at 3.5 L which is her baseline. #5 chronic diastolic CHF: Continued on metoprolol and Lasix, metolazone discontinued. #6 hypertension: Blood pressure stable, continued on clonidine, metoprolol and Lasix. #7 chronic anemia: Probably due to anemia of chronic disease, hemoglobin is been around 8 to 10 g/dL. Discharge hemoglobin is 8.9 g/dL. Stable at baseline. #8 paroxysmal atrial fibrillation: Continued on amiodarone and Catapres for rate control. She is not on anticoagulation. Patient discharged home with home health in a stable medical condition, discharged on oral vancomycin for 8 days of treatment for acute C. difficile colitis, started back on Lasix, metolazone discontinued, patient will start back on dialysis 3 times a week according to nephrology, plan to follow-up with nephrology in 2 weeks, recommended follow-up with PCP in 1 week. This note was generated with [employer] dictation software. It may contain incorrect words, spelling, and punctuation that were not noted in checking the note before signing. - Physical Exam General: Alert, Oriented x3, Cooperative, No apparent distress HEENT: Atraumatic, PERRLA, EOMI, Normocephalic Oral: Moist Mucosa, No Gingival or Mucosal Lesions/ Ulcerations Neck: Supple, No JVD, Negative Carotid Bruits, Trachea Midline, Thyroid Normal Size and Texture Lungs: Clear to auscultation, Normal air movement, No rhonchi, No wheeze, No rales, Diminished Cardiovascular: Regular rate, Regular Rhythm, Normal S1, Normal S2, PMI Normal Abdomen: Bowel Sounds Present, Soft, Non Tender, Non-Distended, No Hepato-splenomegaly, Obese Extremities: No clubbing, No cyanosis, No edema Skin: No rashes, No breakdown Lymphatic: No Cervical, Supraclavicular, or Inguinal Adenopathy Neurological: Cranial nerves II-XII grossly intact, Neuro grossly intact Psych/Mental Status: Normal Affect, Appropriate Vital Signs Temp Pulse Resp BP Pulse Ox 98.6 F 61 18 151/78 H 97 06/24/19 14:21 06/24/19 14:21 06/24/19 14:21 06/24/19 14:21 06/24/19 14:21 Oxygen Flow Rate (L/min) 3.5 Oxygen Delivery Method Nasal Cannula Weight: 243 lb 9.773 oz Body Mass Index (BMI) 40.5 Finger Stick Blood Glucose 500 Intake and Output for Last 24 Hours 06/22/19 06/23/19 06/24/19 23:59 23:59 23:59 Intake Total 2097.5 / 2217.5 1260 / 1260 400 / 400 Output Total 2200 / 2200 2000 / 2000 2500 / 2500 Balance -102.5 / 17.5 -740 / -740 -2100 / -2100 Microbiology Past 72 Hours 06/21/19 14:20 Enteric Bacteriology - Final Stool 06/21/19 14:20 Stool Lactoferrin - Final Stool 06/21/19 14:20 C. difficile DNA Amplification - Final Stool Toxigenic C. difficile DNA Laboratory Tests Past 24 Hrs 06/24/19 06/24/19 06/24/19 01:00 07:52 07:52 WBC 3.4 L RBC 2.94 L Hgb 8.9 L Hct 30.2 L MCV 102.7 H MCH 30.3 MCHC 29.5 L RDW Std Deviation 59.7 H RDW Coeff of Norma 15.9 H Plt Count 74 L MPV 10.8 Immature Gran % (Auto) 0.300 Neut % (Auto) 70.2 H Lymph % (Auto) 15.9 L [place] % (Auto) 11.8 H Eos % (Auto) 1.5 Baso % (Auto) 0.3 Absolute Neuts (auto) 2.4 Absolute Lymphs (auto) 0.54 L Nucleated RBC % 0 Diff Path Review May foll Platelet Estimate MOD DEC Polychromasia RARE Hypochromasia 2+ Basophilic Stippling RARE Macrocytosis 1+ Sodium 142 Potassium 3.9 Chloride 106 Carbon Dioxide 28.0 Anion Gap 8 BUN 60 H Creatinine 3.95 H Estim Creat Clear Calc 11.75 Est GFR (MDRD) Af Amer 14 L Est GFR (MDRD) Non-Af 12 L BUN/Creatinine Ratio 15.2 Glucose 99 Calcium 7.6 L Urine Color Yellow Urine Clarity Sl. Cloudy Urine pH 5.0 Ur Specific [place] 1.025 Urine Protein 30 H Urine Glucose (UA) Normal Urine Ketones Negative Urine Occult Blood 150 H Urine Nitrite Negative Urine Bilirubin 1 H Urine Urobilinogen Normal Ur Leukocyte Esterase 500 H Urine RBC 0-5 SEEN Urine WBC 25-50 SEEN Ur Squamous Epith Cells 0 SEEN Urine Bacteria RARE Hyaline Casts 0-5 SEEN Urine Mucus 0 SEEN POC Glucose 06/24/19 06/24/19 06/23/19 11:12 07:35 20:59 POC Glucose 122 H 105 141 H 06/23/19 16:59 POC Glucose 87 Discharge Activity: Return to Normal Activity Weight Bearing Status: Weight bearing as tolerated Call your doctor if you observe: Fever of 101 or Higher, Shortness of breath, Dizziness, Fainting spells, Chest pain, Increased palpitations (irregular heartbeat), Uncontrolled pain Home Medications: Medications to take at Discharge Insulin Aspart [Novolog Flexpen] See Protocol SQ 4X/DAY 03/01/18 pantoprazole 40 mg tablet,delayed release 40 mg PO DAILY 04/06/18 calcitriol 0.25 mcg capsule 0.25 mcg PO DAILY 09/09/18 Acetaminophen [Tylenol Tablet] 650 mg PO Q6H PRN PRN tab 11/15/18 Nystatin Powder [Mycostatin Powder] 1 applic TOPICAL BID #1 bottle 11/15/18 insulin glargine (U-100) 100 unit/mL subcutaneous solution 25 unit SC BID ml 12/15/18 metoprolol succinate ER 25 mg tablet,extended release 24 hr 12.5 mg PO DAILY tab 12/30/18 aspirin 325 mg tablet 325 mg PO BID tab 02/23/19 escitalopram 10 mg tablet 10 mg PO DAILY 02/23/19 furosemide 80 mg tablet 80 mg PO DAILY 02/23/19 Amiodarone HCl 200 mg PO DAILY 06/21/19 Atorvastatin Calcium [Lipitor] 40 mg PO DAILY 06/21/19 Clonidine HCl [Catapres] 0.1 mg PO TID 06/21/19 Vancomcyin 125mg/5mL PO Liquid 125 mg PO Q6 8 Days #32 po.syringe 06/24/19 Following Prescrptions Were Given to Patient: Vancomcyin 125mg/5mL PO Liquid 125 mg PO Q6 8 Days #32 po.syringe Transmission Status: Received by [facility] Primary Care Physician: Zeenat Harp MD [Primary Care Provider] - Please follow up with your Primary Care Physician in: 1 week. Please Follow Up With: Nidia Jones MD When: 2 weeks. Disposition: Home with Home Health Minutes spent on discharge:: 33 Patient Condition:: Stable Medical Necessity - Tobacco Use Smoking Status: Never smoker Tobacco Use: Non-smoker Meaningful Use Info Meaningful Use Diagnoses (Choose all that apply): None applicable Code Visit Inpatient E&M: 18226 Disch Hosp
[2019-06-24 16:00] LABS: Complement C3 89 mg/dL (82-167)
[2019-06-24 16:07] LABS: ANTINUCLEAR ANTIBODIES DIRECT Positive (Negative); Anti-Centromere B Ab <0.2 AI (0.0-0.9); Anti-Chromatin <0.2 AI (0.0-0.9); Anti-Jo <0.2 AI (0.0-0.9); RNP Ab <0.2 AI (0.0-0.9); SJOGREN'S Anti-SS-A test < 0.2 AI (0.0-0.9); SJOGREN'S Anti-SS-B test < 0.2 AI (0.0-0.9); Smith Ab <0.2 AI (0.0-0.9)
[2019-06-24 17:18] LABS: Anti-dsDNA Ab 6 IU/mL (0-9)
--- NOTE | 2019-06-25 14:28 | CASEMGMT ---
ELI STARR Discharge Follow-Up Phone Call. Sonam: 11 Strata: 3 Discharge Date: 06/25/19 Adm Dx: N/V/D, JORGE on CKD Call to pt to inquire about how she has been doing since being discharged from the hospital. Pt stated, I'm doing fine, just a little tired. Pt stated she does not have any questions about the discharge instructions at this time. When asked pt if she was able to get the Vanco Rx filled, she put her on the phone. ELI STARR then spoke to for remainder of questions. states he went down to [facility] and picked up the prescription. He denies having any questions about the discharge instructions or medications or any other questions. He states [facility] has scheduled an appt to come to the home on Friday. He states he made an appt with Dr Turner for 06/30 @ 1340 and states he will call Dr Jones's office today to schedule that appt as well. states he was able to find transportation for pt to her 1st dialysis @ [facility] tomorrow and that [facility] will be providing transportation on Tuesdays and . He states he is not sure about transportation for other Saturdays, but he is still working on it. Advised to talk to staff @ [facility] if he has further difficulty with finding transportation on Saturdays. He voices understanding. denies having any further questions or concerns. ELI STARR thanked him for choosing [facility] for pt. thanked ELI STARR for calling. Sarbjit CAMPBELL RN, CM
[2019-06-25 15:13] LABS: Pathologist Review Reviewed
[2019-06-25 16:08] LABS: Cytoplasmic Ab (C-ANCA) <1:20 titer (Neg:<1:20)
[2019-06-25 16:27] LABS: Anti-Glomerular Basement Memb 3 units (0-20)
== END 2019-06-24 14:42 | disposition home or self-care (01) | DRG 371 ==
LOC: ED 14:00 → MS3 15:54
PROVIDERS: Internal Medicine Nephrology; Admitting Provider Family Medicine; Emergency Provider Emergency Medicine; Family Provider Family Medicine; PCP Family Medicine; Referring Provider Family Medicine; Visit Provider Hospitalist
DX: A04.72 Enterocolitis due to Clostridium difficile, not specified as recurrent (principal); J96.22 Acute and chronic respiratory failure with hypercapnia; N17.0 Acute kidney failure with tubular necrosis; N30.00 Acute cystitis without hematuria; I13.0 Hypertensive heart and chronic kidney disease with heart failure and stage 1 through stage 4 chronic kidney disease, or unspecified chronic kidney disease; N18.4 Chronic kidney disease, stage 4 (severe); I50.32 Chronic diastolic (congestive) heart failure; J96.11 Chronic respiratory failure with hypoxia; Z68.41 Body mass index [BMI] 40.0-44.9, adult; E11.22 Type 2 diabetes mellitus with diabetic chronic kidney disease; D63.1 Anemia in chronic kidney disease; B96.20 Unspecified Escherichia coli [E. coli] as the cause of diseases classified elsewhere; E78.5 Hyperlipidemia, unspecified; J44.9 Chronic obstructive pulmonary disease, unspecified; I05.1 Rheumatic mitral insufficiency; I27.21 Secondary pulmonary arterial hypertension; I48.0 Paroxysmal atrial fibrillation; I77.9 Disorder of arteries and arterioles, unspecified; M34.1 CR(E)ST syndrome; H54.8 Legal blindness, as defined in USA; I05.2 Rheumatic mitral stenosis with insufficiency; E66.01 Morbid (severe) obesity due to excess calories; Z91.19 Patient's noncompliance with other medical treatment and regimen; Z99.2 Dependence on renal dialysis; Z79.4 Long term (current) use of insulin; Z79.82 Long term (current) use of aspirin; Z99.81 Dependence on supplemental oxygen; Z79.899 Other long term (current) drug therapy; Z86.73 Personal history of transient ischemic attack (TIA), and cerebral infarction without residual deficits
CPT/HCPCS: 36415; 36600; 71045; 80048; 80053; 81001; 82803; 82962; 83520; 83630; 83735; 84100; 85025; 85610; 86038; 86160; 86225; 86235; 86256; 86704; 86706; 87086; 87088; 87186; 87340; 87493; 87506; 90937; 93005; 94002; 94003; 94640; 94762; 97162; 97166; 97530; 97802; 99284; J7030; A4216; G0257; J1940

== ENCOUNTER → 2019-07-13 07:34 | Outpatient (CLI) | payer MEDICARE, SELFPAY ==
[2019-03-24 09:24] VITALS: BMI 32.1
[2019-06-21 16:25] VITALS: BMI 40.5
--- NOTE | 2019-07-13 10:34 | PFT ---
INTRODUCTION: The patient is a 73-year-old female that presents for pulmonary function studies secondary to a diagnosis of COPD. Respiratory therapy reports suboptimal patient effort. The patient was unable to do the body box. Bronchodilators were used during testing. INTERPRETATION: Forced expiration spirometry demonstrates no evidence of a large airways obstructive ventilatory defect. There was no significant bronchodilator response. Spirograms are of poor quality and do not plateau. Body plethysmography was attempted with suboptimal results. Based upon the numerical data reported, there is evidence of a severe restrictive ventilatory impairment with a total lung capacity of 46% of predicted. Diffusing capacity was unable to be completed. IMPRESSION: Spirometry demonstrated no evidence of a large airways obstructive ventilatory defect. There was no bronchodilator response. Although total lung capacity was reduced at 46% of predicted, indicating a severe restrictive ventilatory impairment, results should be viewed with caution, due to poor patient effort with testing.
== END ==
PROVIDERS: Family Provider Family Medicine; PCP Family Medicine; Referring Provider Internal Medicine Critical Care Medicine; Visit Provider Internal Medicine Critical Care Medicine
DX: I27.21 Secondary pulmonary arterial hypertension (principal); M34.1 CR(E)ST syndrome; N18.5 Chronic kidney disease, stage 5
CPT/HCPCS: 94060; 94726; 94729

== ENCOUNTER → 2019-08-13 08:11 | Outpatient (CLI) | payer MEDICARE, SELFPAY ==
[2019-06-21 16:25] VITALS: BMI 40.5
[2019-08-13] VITALS (9 sets, daily range): BP systolic 105–160; BP diastolic 51–89; PULSE 45–50; RESP 15–20; TEMP 36.9; O2SAT 96–100; BMI 36.2
--- NOTE | 2019-08-13 08:26 | CT_ITS ---
PROCEDURE: CT GUIDED PERCUTANEOUS KIDNEY BIOPSY. DATE: August 13, 2019. INDICATION: Female, 73 years old. Chronic renal disease due to diabetes. PHYSICIAN: Brett Arcos M.D. MEDICATIONS: 2 mg of Versed and 50 mcg of fentanyl intravenously. Conscious sedation protocol was followed. Conscious sedation was started at 10:44 AM and terminated at 10:55 AM. The patient was independently monitored by the department nurse. ACCESS SITE: Lower pole of the left kidney. NEEDLE: 18-gauge core biopsy needle system. SPECIMEN: 4 18-gauge cores. EBL: None. COMPLICATIONS: None immediate. RADIATION DOSAGE (If Supplied By Facility): CTDIvol = ( 15.5 ) mGy, DLP = ( 418.08 ) mGycm The risks, benefits, and alternatives to the procedure and sedation were explained to the patient. The specific risk of hemorrhage requiring further treatment or intervention was detailed and accepted. Written informed consent was obtained. The patient was placed on the CT table in the prone position. Multiple axial images were obtained from the lung base through the caudal extent of the kidneys. An appropriate entry site was identified and a bryce made on the skin. The skin overlying the [ left] posterior flank was prepped and draped in sterile fashion. 1% lidocaine was administered subcutaneously for local anesthesia. An 17 gauge introducer needle was advanced. Repeat CT images confirmed good needle trajectory and tip position. The introducer needle was then advanced into the periphery of the inferior renal pole, and CT images were again obtained to confirm exact tip location. The inner stylet of the introducer needle was then removed and an 18 gauge coaxial needle was advanced thru the introducer needle and biopsy performed. A total of [ 4] passes were performed and the specimen collected was sent to Pathology for further evaluation. The needle was withdrawn. Hemostasis was achieved with manual compression and a sterile dressing was applied. Repeat CT images of the biopsy area was performed which demonstrated no gross bleeding or hematoma. The patient tolerated the procedure well without immediate complications. The patient was transported to the [floor/recovery area] in stable condition. CT/Biopsy/Inj or Needle Placement IMPRESSION: Successful CT guided percutaneous kidney biopsy. Electronically Signed: Brett Arcos, at 11:23 EST , Service support ,
[2019-08-13 09:25] LABS: Platelet Count 135 K/mm3 (150-450)
[2019-08-13 09:38] LABS: International Normalized Ratio 1.3; Prothrombin Time (Protime)PT. 15.5 SECONDS (11.7-14.9)
[2019-08-13 09:39] LABS: Partial Thromboplast Time 39.4 Seconds (24.1-36.2)
[2019-08-13] MEDS: Midazolam 2 MG/2 ML Syringe IV (10:44)
[2019-08-13] MEDS: fentaNYL 100 MCG/2 ML Ampul IV (10:44)
--- NOTE | 2019-08-13 10:55 | KI_PTH ---
PATIENT: MICHAEL HUFF LOC: CT U#:[id number] AGE/SX: 79/F ROOM: RE08/13/[address]: Dr. Trell Freeman MD : 1945 BED: DIS: SPEC #: [id number] RECD: 08/13/19 11:08 STATUS: REMEDIOS ISRRA[place] #: [id number] SHAREE: 08/13/19 10:[address]: Trell Freeman DEPT: SURGICAL PATHOLOGY RECD BY: Cedric Luu ENTERED: 08/13/19 11:32 SP TYPE: KIDNEY BX OTHR DR: Dr. Zeenat Harp MD Tissues: Kidney, NOS Procedures: Electron Microscopy (ACH) Fluorescent Antibody (ACH) Sp St Grp II Kidney (ACH) Kidney Biopsy (ACH) Fluorescent antibody (ACH) add'l HEADER OPERATION: CT-guided left kidney biopsy PRE-OP DIAGNOSIS: Renal failure, dialysis TISSUE SUBMITTED: Lower pole left kidney 18 gauge core x4 MICROSCOPIC DIAGNOSIS Renal biopsy demonstrating extensive global glomerulosclerosis, micronodular glomerulosclerosis, arteriosclerosis and mild to moderate chronic tubulointerstitial changes. COMMENT The findings are most consistent with diabetic nephropathy; however, similar changes may be seen in association with chronic hypertension. Please correlate clinically. MICROSCOPIC DESCRIPTION Sections are evaluated with H & E, PAS, Powell, trichrome and Congo red stains. 50 glomeruli are present. 35 glomeruli are globally sclerotic. Preserved glomeruli demonstrate thickening of vascular poles and capillary loops. There is increased mesangial matrix deposition with some areas showing vague micronodular change. No cellular proliferation, segmental lesions or active glomerulitis are identified. There is approximately 25-30% interstitial fibrosis overall with proportionate tubular atrophy. There is a mild patchy mononuclear interstitial inflammatory infiltrate. Arterioles show moderate to marked myointimal thickening. No arteritis is identified. Congo red stains are negative. IMMUNOFLUORESCENCE: Six glomeruli are present. Two glomeruli are globally sclerotic. There is no specific staining to indicate the deposition of immunoglobulins (IgG, IgA or IgM) or complement components (C3 or C1q). Stains for light chains kappa and lambda show no evidence of deposition in glomerular or tubular basement membranes. Albumin shows background staining. Glomerular fibrin deposition is not increased. ELECTRON MICROSCOPY: One glomerulus is evaluated. Mesangial areas are expanded with granular matrix. No discrete electron dense deposits are identified. Glomerular capillary loops demonstrate basement membranes of slightly increased thickness with no discrete electron dense deposits. There is extensive effacement of overlying epithelial cell foot processes. Tubular basement membranes are of slightly increased thickness with no discrete electron dense deposits. GROSS DESCRIPTION This specimen is sent entirely to [facility] for diagnosis. The specimen is received in transport medium and consists of four cores of lowe renal tissue that range in length from 0.9 to 1.7 cm. The cores are divided for histology, immunofluorescence and electron microscopy.
[2019-08-16 16:07] LABS: Cytoplasmic Ab (C-ANCA) <1:20 titer (Neg:<1:20)
[2019-08-16 17:57] LABS: Perinuclear Ab (P-ANCA) <1:20 titer (Neg:<1:20)
== END ==
PROVIDERS: Family Provider Family Medicine; PCP Family Medicine; Referring Provider Internal Medicine Nephrology; Visit Provider Internal Medicine Nephrology
DX: I13.0 Hypertensive heart and chronic kidney disease with heart failure and stage 1 through stage 4 chronic kidney disease, or unspecified chronic kidney disease (principal); I50.32 Chronic diastolic (congestive) heart failure; E11.22 Type 2 diabetes mellitus with diabetic chronic kidney disease; N18.9 Chronic kidney disease, unspecified; D50.9 Iron deficiency anemia, unspecified; J44.9 Chronic obstructive pulmonary disease, unspecified; D68.9 Coagulation defect, unspecified; I95.9 Hypotension, unspecified; I48.0 Paroxysmal atrial fibrillation; I05.9 Rheumatic mitral valve disease, unspecified; Z79.82 Long term (current) use of aspirin; Z79.4 Long term (current) use of insulin; Z79.899 Other long term (current) drug therapy
CPT/HCPCS: 50200; 36415; 77012; 85049; 85610; 85730; 86256; 88300; 88305; 88313; 88346; 88348; 88350; 99156; J7040; A4216

== ENCOUNTER 2019-09-09 10:20 | Day surgery (SDC) | payer MEDICARE, SELFPAY ==
[2019-08-13 09:05] VITALS: BMI 36.2
--- NOTE | 2019-08-23 03:23 | HP_ITS ---
Intake Vital Signs 08/23/19 Blood Pressure 102/50 L 08/23/19 Blood Pressure Location Rt brachial 08/23/19 Blood Pressure Position Sitting 08/23/19 Respiratory Rate 22 H 08/23/19 Pulse Rate 48 L Intake Visit Reasons: 6 MONTH FISTULA CHECK Chief Complaint: recheck fistula Res Counselor Required: No Is patient in pain?: No Allergies No Known Allergies Allergy (Verified 08/23/19 13:44) Is last menstrual period known: No Post menopausal: Yes Patient : No [facility] Medical History CVA (cerebral vascular accident) (Chronic) Secondary pulmonary arterial hypertension (Chronic) Paroxysmal atrial fibrillation (Chronic) Chronic diastolic (congestive) heart failure (Chronic) Essential hypertension (Chronic) Peripheral arterial occlusive disease (Chronic) Bradycardia (Chronic) COPD (chronic obstructive pulmonary disease) (Chronic) CREST variant of scleroderma (Chronic) Cerebral hemorrhage (Chronic 03/2016) Depression (Chronic) Lung nodule (Chronic) Neuropathic pain (Chronic) Obesity (Chronic) Obstructive sleep apnea (Chronic) Rheumatic mitral stenosis (Chronic) Type 2 diabetes mellitus (Chronic) Vitamin D deficiency (Chronic) Aortic stenosis, mild (Inactive) Chronic renal insufficiency, stage V (Inactive) Surgical History Presence of surgically created arteriovenous shunt for hemodialysis (Chronic ~03/2018) H/O craniotomy (Resolved) S/P Achilles tendon repair (Resolved) S/P dialysis catheter insertion (Resolved) S/P laparoscopic cholecystectomy (Resolved) S/P tonsillectomy (Resolved) Family History Mother Cancer Diabetes Kidney disease Father Heart disease Diabetes Kidney disease Social History (Updated 08/23/19 @ 15:43 by Evangelina Hendricks PA-C) Smoking Status: Never smoker second hand exposure: No alcohol intake: never substance use type: does not use caffeine: Yes Type: coffee what type of physical activity do you participate in: none HPI HPI HPI: MICHAEL HUFF, is a 73 F who presents to the office today for HPI HPI Surgical H&P: Yes HPI: MICHAEL HUFF, is a 73 F who presents to the office today for 6 month follow-up of her transposed left forearm AV fistula. Patient was recently placed on dialysis during a hospitalization at [facility] for worsening renal function and acute C Diff in June. 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 She dialyzes , and Sat in [place]. She noted at dialysis last that she had increased bleeding from one of the needle sites. Bleeding finally stopped on Friday. She has never had a fistulogram. Her fistula was created on 03/25/[address] Angeles. ROS General General: Yes weight change and appetite; no fatigue, colon cancer, breast cancer or weakness HEENT HEENT: Yes eye surgery; no difficulty swallowing, eye injury, swollen glands or hoarseness Endo Endocrine: Yes diabetes mellitus; no thyroid disease, thyroid cancer, Hair loss, heat intolerance or cold intolerance Musc Musculoskeletal: Yes back problems, arthritis and rheumatoid arthritis; no gout or joint pain Cardio Cardiovascular: Yes murmur and high blood pressure; no pacemaker, heart disease, atrial fibrillation, heart attack, heart stent, palpitations, shortness of breat with exertion or chest pain Psych Psychiatric: No depression, anxiety or hearing voices Resp Respiratory: Yes shortness of breath, Yes sleep apnea, No cough, No COPD, No asthma, No emphysema, No wheezing Gastro Gastrointestinal: No abdominal pain, No nausea or vomiting, No diarrhea, No constipation, No blood in stool, No acid reflux, No hemorrhoids, No ulcers, No gallbladder problem, No black,tarry stools Julio Hematologic: No blood thinners, No blood disorders, No bleeding, Yes anemia, No blood clots Neuro Neurologic: No weakness Exam Const General: cooperative, comfortable, no acute distress [facility] Head: normal to inspection Eyes General: appearance normal, both eyes and all related structures Neck Neck: normal visual inspection Neck mass: No Resp Effort & Inspection: normal respiratory effort Cardio Rate: regular rate Rhythm: regular rhythm Heart Sounds: murmur GI Inspection: normal to inspection Palpation: soft Auscultation: normal bowel sounds Skin General: no rashes or lesions noted Neuro General: no focal motor deficits, CN's II-XI intact bilaterally Extrem Other: Left forearm AV fistula- good pulse. Diminished bruit and thrill Psych Appearance: grossly normal Affect: normal affect Assessment & Plan Problems 1. Stage 5 chronic kidney disease N18.5 2. Problem with dialysis access, initial encounter T82.664J Plan Dr. Angeles will plan to perform a non-urgent transposed left forearm AV fistulogram. Procedure details, risks and benefits have been explained to the patient. Patient and her spouse have had the opportunity to ask and have questions answered. Patient verbally understands and agrees with the plan. Patient may continue her aspirin. Obtain blood work today. Orders Orders: Basic Metabolic Profile (BMP) Today N18.5 CBC W/Diff, Automated Today A04.72 Coding Level of Care Code Off vis,est,level 3 Diagnoses Stage 5 chronic kidney disease N18.5 Problem with dialysis access, initial encounter T82.898A ??Encounter type: initial encounter 08/23/19 1543 <Electronically signed by Evangelina erickson PA-C> Date _ Evangelina Hendricks PA-C
[2019-09-07 10:16] LABS: Hematocrit 32.5 % (37-47); Hemoglobin 9.5 g/dL (12.0-15.0); Mean Corp Hgb Conc 29.2 g/dL (32-36); Mean Corpuscular Hgb 29.2 pg (27.0-32.0); Platelet Count 122 K/mm3 (150-450); RBC Distribution Width SD 62.1 fl (35.1-43.9); Red Blood Count 3.25 M/mm3 (4.2-5.4); White Blood Count 5.7 K/mm3 (4.4-11.0)
[2019-09-07 10:33] LABS: Anion Gap 7 (5-15); BUN 43 mg/dL (7-18); BUN/Creat Ratio 6.2 RATIO (10-20); Calcium,Total 7.5 mg/dL (8.5-10.1); Chloride 100 mmol/L (98-107); Creatinine, Serum 6.89 mg/dL (0.55-1.02); EST Glomerular Filtration Rate 6 mL/min (>60); Est Glom Filt Rate - Afr Amer 8 mL/min (>60); Glucose 118 mg/dL (74-106); Potassium 3.4 mmol/L (3.5-5.1); Sodium Level 139 mmol/L (136-145)
[2019-09-09 11:03] VITALS: BMI 42.0
--- NOTE | 2019-09-09 11:43 | PCM.HP.BLA ---
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 Is patient in pain?: No Allergies No Known Allergies Allergy (Verified 08/23/19 13:44) Is last menstrual period known: No Post menopausal: Yes Patient : No PFSH Medical History CVA (cerebral vascular accident) (Chronic) Secondary pulmonary arterial hypertension (Chronic) Paroxysmal atrial fibrillation (Chronic) Chronic diastolic (congestive) heart failure (Chronic) Essential hypertension (Chronic) Peripheral arterial occlusive disease (Chronic) Bradycardia (Chronic) COPD (chronic obstructive pulmonary disease) (Chronic) CREST variant of scleroderma (Chronic) Cerebral hemorrhage (Chronic 03/2016) Depression (Chronic) Lung nodule (Chronic) Neuropathic pain (Chronic) Obesity (Chronic) Obstructive sleep apnea (Chronic) Rheumatic mitral stenosis (Chronic) Type 2 diabetes mellitus (Chronic) Vitamin D deficiency (Chronic) Aortic stenosis, mild (Inactive) Chronic renal insufficiency, stage V (Inactive) Surgical History Presence of surgically created arteriovenous shunt for hemodialysis (Chronic ~03/2018) H/O craniotomy (Resolved) S/P Achilles tendon repair (Resolved) S/P dialysis catheter insertion (Resolved) S/P laparoscopic cholecystectomy (Resolved) S/P tonsillectomy (Resolved) Family History Mother Cancer Diabetes Kidney disease Father Heart disease Diabetes Kidney disease Social History (Updated 08/23/19 @ 15:43 by Evangelina Hendricks PA-C) Smoking Status: Never smoker second hand exposure: No alcohol intake: never substance use type: does not use caffeine: Yes Type: coffee what type of physical activity do you participate in: none HPI HPI HPI: MICHAEL HUFF, is a 73 F who presents to the office today for HPI HPI Surgical H&P: Yes HPI: MICHAEL HUFF, is a 73 F who presents to the office today for 6 month follow-up of her transposed left forearm AV fistula. Patient was recently placed on dialysis during a hospitalization at [facility] for worsening renal function and acute C Diff in June. 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 She dialyzes , and Sat in [place]. She noted at dialysis last that she had increased bleeding from one of the needle sites. Bleeding finally stopped on Friday. She has never had a fistulogram. Her fistula was created on 03/25/[address] Angeles. ROS General General: Yes weight change and appetite; no fatigue, colon cancer, breast cancer or weakness HEENT HEENT: Yes eye surgery; no difficulty swallowing, eye injury, swollen glands or hoarseness Endo Endocrine: Yes diabetes mellitus; no thyroid disease, thyroid cancer, Hair loss, heat intolerance or cold intolerance Musc Musculoskeletal: Yes back problems, arthritis and rheumatoid arthritis; no gout or joint pain Cardio Cardiovascular: Yes murmur and high blood pressure; no pacemaker, heart disease, atrial fibrillation, heart attack, heart stent, palpitations, shortness of breat with exertion or chest pain Psych Psychiatric: No depression, anxiety or hearing voices Resp Respiratory: Yes shortness of breath, Yes sleep apnea, No cough, No COPD, No asthma, No emphysema, No wheezing Gastro Gastrointestinal: No abdominal pain, No nausea or vomiting, No diarrhea, No constipation, No blood in stool, No acid reflux, No hemorrhoids, No ulcers, No gallbladder problem, No black,tarry stools Julio Hematologic: No blood thinners, No blood disorders, No bleeding, Yes anemia, No blood clots Neuro Neurologic: No weakness Exam Const General: cooperative, comfortable, no acute distress [facility] Head: normal to inspection Eyes General: appearance normal, both eyes and all related structures Neck Neck: normal visual inspection Neck mass: No Resp Effort & Inspection: normal respiratory effort Cardio Rate: regular rate Rhythm: regular rhythm Heart Sounds: murmur GI Inspection: normal to inspection Palpation: soft Auscultation: normal bowel sounds Skin General: no rashes or lesions noted Neuro General: no focal motor deficits, CN's II-XI intact bilaterally Extrem Other: Left forearm AV fistula- good pulse. Diminished bruit and thrill Psych Appearance: grossly normal Affect: normal affect Assessment & Plan Problems 1. Stage 5 chronic kidney disease N18.5 2. Problem with dialysis access, initial encounter T82.336L Plan Dr. Angeles will plan to perform a non-urgent transposed left forearm AV fistulogram. Procedure details, risks and benefits have been explained to the patient. Patient and her spouse have had the opportunity to ask and have questions answered. Patient verbally understands and agrees with the plan. Patient may continue her aspirin. Obtain blood work today. Orders Orders: Basic Metabolic Profile (BMP) Today N18.5 CBC W/Diff, Automated Today A04.72 Coding Level of Care Code Off vis,est,level 3 Diagnoses Stage 5 chronic kidney disease N18.5 Problem with dialysis access, initial encounter T82.898A Encounter type: initial encounter 08/23/19 1543<Electronically signed by Evangelina Hendricks PA-C> Date Evangelina Hendricks PA-C Cosigner Signature:Date (if applicable) I have re-examined the patient. There are no clinical changes since date of exam.
--- NOTE | 2019-09-09 12:47 | PCM.OPRPT ---
Problem List (1) Problem with dialysis access Status: Acute Qualifiers: Encounter type: initial encounter Qualified Code(s): T82.898A - Other specified complication of vascular prosthetic devices, implants and grafts, initial encounter Report of Operation Date of Procedure: 09/09/19 Pre-Operative Diagnosis: Problem with low flow left forearm radial to cephalic arteriovenous hemodialysis fistula Post-Operative Diagnosis: Moderate proximal fistula venous stenosis Surgery/Procedure Performed:: Left upper extremity fistulogram with 6 x 2 Powerflex proximal fistula/arterial anastomosis angioplasty Description of Surgical Findings:: Timeout and informed consent was obtained. 73-year-old female was taken to the special procedures lab placed on the table. The left extremity was sterilely prepped and draped. Initially under ultrasound guidance 2% lidocaine was instilled closer to the wrist. An antegrade access was obtained with a micropuncture needle micropuncture wire then the 6 Mosotho short sheath dilator. Using Isovue contrast a fistulogram was taken of the forearm and upper arm and outflow area. This did not demonstrate significant disease. Compression pressure was applied and there was suggestion of proximal fistula relative stenosis. I then used ultrasound again to gain access to the more proximal forearm portion of the fistula. And again under ultrasound guidance 2% lidocaine was instilled. Micropuncture needle inserted micropuncture wire inserted retrograde with flow. 6 Mosotho short sheath was inserted. I then used a 4 Mosotho angled glide cath and an angled Glidewire to gain access to the radial artery proximal to the anastomosis. Fistulogram was obtained demonstrating moderate stenosis in the very proximal portion of the fistula. I then placed a 6 x 2 Powerflex balloon and performed balloon angioplasty of the arterial anastomosis in the very proximal portion of the fistula. My final fistulogram was done through the balloon demonstrating improvement in this area. The patient had a good pulse and thrill and bruit at the completion without apparent complication. The sheaths were removed and used sutures of 4-0 nylon was placed. Hemostasis was intact no apparent complication and she tolerated it well. Patient has a left forearm radiocephalic arteriovenous hemodialysis fistula. The anastomosis is slightly more proximally in the forearm. There was moderate stenosis of the arterial anastomosis and proximal portion of the fistula that resolved with angioplasty. There is good upper arm and central venous outflow. Impression Successfully treated left forearm AV fistula with resolved area of venous stenosis proximal fistula. Anoop Angeles M.D., F.A.C.S. Type of Anesthesia:: Local
== END 2019-09-09 14:05 | disposition home or self-care (01) ==
LOC: CLSP 10:21
PROVIDERS: Family Provider Family Medicine; PCP Family Medicine; Referring Provider Surgery; Visit Provider Surgery
DX: T82.858A Stenosis of other vascular prosthetic devices, implants and grafts, initial encounter (principal); I13.2 Hypertensive heart and chronic kidney disease with heart failure and with stage 5 chronic kidney disease, or end stage renal disease; I50.32 Chronic diastolic (congestive) heart failure; E11.22 Type 2 diabetes mellitus with diabetic chronic kidney disease; N18.5 Chronic kidney disease, stage 5; I27.21 Secondary pulmonary arterial hypertension; J44.9 Chronic obstructive pulmonary disease, unspecified; E66.9 Obesity, unspecified; Z99.2 Dependence on renal dialysis; Z79.4 Long term (current) use of insulin; Z79.82 Long term (current) use of aspirin; Z86.73 Personal history of transient ischemic attack (TIA), and cerebral infarction without residual deficits; Z79.899 Other long term (current) drug therapy
CPT/HCPCS: 36415; 36902; 76937; 80048; 85027; Q9967; C1725; C1769

== ENCOUNTER → 2019-12-10 14:09 | Outpatient (CLI) | payer MEDICARE, SELFPAY ==
[2019-11-01 08:36] VITALS: BMI 35.6
--- NOTE | 2019-12-10 14:13 | RAD_ITS ---
STUDY: X-RAY - RIGHT KNEE REASON FOR EXAM: Female, 74 years old. Pain and stiffness TECHNIQUE: 4 view(s) of the knee. COMPARISON: None. FINDINGS: There is demineralization of the visualized distal femur. There is demineralization of the tibia and fibula. Normal proximal tibiofibular articulation. There is mild degenerative arthrosis of the medial femorotibial compartment. Normal lateral femorotibial compartment. There is moderate degenerative arthrosis of the patellofemoral articulation. There are atherosclerotic calcifications. RAD/Knee 4 or More Views IMPRESSION: Degenerative arthrosis. Electronically Signed: Delonte Tang MD at 8:55 EST , Service support ,
== END ==
PROVIDERS: PCP Family Medicine; Referring Provider Family Medicine; Visit Provider Family Medicine
DX: M17.11 Unilateral primary osteoarthritis, right knee (principal)
CPT/HCPCS: 73564

== ENCOUNTER 2019-12-20 14:40 | Outpatient (RCR) | payer MEDICARE, SELFPAY ==
[2019-11-01 08:36] VITALS: BMI 35.6
--- NOTE | 2019-12-20 16:44 | HP.PTEVAL_ITS ---
Patient's Visit Information MICHAEL HUFF is a 74 year old F referred to Physical Therapy by Dr. Zeenat Harp MD with a diagnosis of RIGHT KNEE ARTHRITIS. Date of Evaluation: 12/20/19 Physical Therapist: Kieran Sanchez, PT, Cert MDT, OCS - Visit Plan Frequency: 2x /Week Duration: 4 Weeks Plan: PT INTERVENTIONS GAIT TRAINING,BALANCE PROGRAM,ENDURANCE PROGRAM,BLE STRENGTHENING - Subjective Subjective: This 74 y/o female presents to physical therapy with right knee pain . Patient has multiple comorbities CVA affecting ride side from [place].Patient has dialysis at home 5 days a week due to kidney failure. Patient seen DR reddy to c/o pain right leg ,did x-rays showed DJD. Recommended PT. Patient is unable to walk ,stays in w/c. Patient needs assist with transfers and bed moblity. Patient needs assist with ADL's ,housework tasks dressing bathing. Patient has tub/shower set up with transfer board. Patient c/o has parathesia feet in legs . Patient has 3.5 l02.Patient has one story home small step but has assisiatances. Patient sleeping okay at night. Patient condtion affects QOL,ADLS' and function. Patient has been in PT in past. Patient goals is to walk.DME: W/C,rollator,fww,lift chair,shower bench. SOCIAL: - Pain Right Lower Extremity Pain Intensity (Out of 10): 6 Pain Intensity Range: 10 Comment: knee -fot - Objective POSTURE: mild foward posture,posterior pelvic tilt. NEURO: c/o parathesia/tingling right leg reflexes 1/3. PALAPTION:global tenderness. ED EDGARDO: mild edema. AROM: supine right knee flexion 0-105 knee flexion , left 0- 110 supine knee flexion. MMT: quads/hams 4-/5,hip flexion 3+/5,hip abd 3+/5,ankle 4/5. BALANCE: fair with fww. GAIT: ambulated with fww 15ft with CGA with 02 - Balance Scores CATSIB Score (Max score 120 seconds): 5 - Goals Goal 1:: Patient to be Independant with HEP. Goal Time Frame: 4-6 Weeks Goal 2:: Patient to decrease knee pain by 50 % or > to improve GAIT. Goal Time Frame: 4-6 Weeks Goal 3:: Patient increase knee AROM by 5 degrees or > to improve FUNCTION. Goal Time Frame: 4-6 Weeks Goal 4:: Patient increase strength of right quads/hams/hip to 4/5 to improve function with gait. Goal Time Frame: 4-6 Weeks Goal 5:: Patient improve LFES score by 5-10 points or > to improve balance. Goal Time Frame: 4-6 Weeks Goal 6:: Pateint to amabulate with fww 50 ft x2 with SBA with 02. - Rehabilitation Potential Physical Therapy Diagnosis: Patient has right knee pain along with h/o of CVA affecting gait,balance strength ,endurance and ADLS; thus benifit from skilled PT. Rehabilitation Potential: Good - Anticipated Interventions Patient/Client Instruction: Educate patient on: Condition, Plan of Care For the Purpose of:: To decrease pain, To increase ROM, To improve muscle performance and motor function, To improve ability to perform ADL's, To increase tolerance to activity/condition/position, To improve performance and independence with ADL's, To improve ability of physical actions for home/community/work/leisure, To improve gait and locomotor functions, To improve health of tissue, To decrease soft tissue restriction, To improve ability to perform tasks related to life management Therapeutic Exercise to Include: Strength training, Endurance training, Balance training, Flexibilty training, Gait and locomotor training For the Purpose of:: To decrease pain, To increase ROM, To improve muscle per formance and motor function, To increase tolerance to activity/condition/position, To improve performance and independence with ADL's, To improve ability of physical actions for home/community/work/leisure, To improve gait and locomotor functions, To improve endurance, To improve balance, To improve safety with gait, To assume or resume ADL's, To improve tolerance to ADL's TENS: Yes IF ES: Yes For the Purpose of:: To decrease pain, To increase ROM, To improve health of tissue, To decrease soft tissue restriction Thank you for the opportunity to evaluate your patient. For Medicare and Medicare HMO plans, please review the plan of care and approve it. It will need to be FAXED BACK to us at [phone] for Medicare purposes. For Medicare only, by signing this I certify the plan of care. Please let me know if there are questions or concerns regarding this plan of care. Physician Sig nature: Date:
--- NOTE | 2020-01-26 09:34 | HP.PTDCNRP_ITS ---
MICHAEL HUFF was seen in my office for initial evaluation on 12/20/19. The following Plan of Care was established for this patient: Initial Frequency: 2x /Week Initial Duration: 4 Weeks Patient/Client Instruction: Educate patient on: Condition, Plan of Care For the Purpose of:: To decrease pain, To increase ROM, To improve muscle performance and motor function, To improve ability to perform ADL's, To increase tolerance to activity/condition/position, To improve performance and independence with ADL's, To improve ability of physical actions for home/community/work/leisure, To improve gait and locomotor functions, To improve health of tissue, To decrease soft tissue restriction, To improve ability to perform tasks related to life management Therapeutic Exercise to Include: Strength training, Endurance training, Balance training, Flexibilty training, Gait and locomotor training For the Purpose of:: To decrease pain, To increase ROM, To improve muscle performance and motor function, To increase tolerance to activi ty/condition/position, To improve performance and independence with ADL's, To improve ability of physical actions for home/community/work/leisure, To improve gait and locomotor functions, To improve endurance, To improve balance, To improve safety with gait, To assume or resume ADL's, To improve tolerance to ADL's TENS: Yes IF ES: Yes For the Purpose of:: To decrease pain, To increase ROM, To improve health of tissue, To decrease soft tissue restriction This patient was last seen in our office . Pertinent comments regarding their Physical therapy will appear below: Patient seen for PT for HEP ,thus is d/c with COVID-19 with multiple comorbities. At this point I will be discontinuing this patient from physical therapy. I would be happy to see this patient again in the future if found appropriate by the physician. Thank you! Kieran Sanchez, PT, Cert MDT, OCS
== END 2019-12-20 19:00 | disposition home or self-care (01) ==
LOC: PT 14:40
PROVIDERS: PCP Family Medicine; Referring Provider Family Medicine; Visit Provider Family Medicine
DX: M17.11 Unilateral primary osteoarthritis, right knee (principal)
CPT/HCPCS: 97110; 97163

== ENCOUNTER → 2019-12-28 11:08 | Outpatient (CLI) | payer MEDICARE, SELFPAY ==
[2019-11-01 08:36] VITALS: BMI 35.6
--- NOTE | 2019-12-28 11:11 | RAD_ITS ---
STUDY: X-RAY - LEFT HAND, ATTENTION THIRD FINGER REASON FOR EXAM: Female, 74 years old. WOUND INFECTION TECHNIQUE: 3 view(s) of the finger were obtained. COMPARISON: None. FINDINGS: Normal metacarpal head. Normal metacarpophalangeal joint. Normal proximal phalanx. Normal middle phalanx. There is amputation of the distal aspect of the distal phalanx of the third digit. Normal proximal interphalangeal joint. Normal distal interphalangeal joint. 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 Electronically Signed: Brett Arcos, at 12:31 EDT , Service support ,
== END ==
PROVIDERS: PCP Family Medicine; Referring Provider Family Medicine; Visit Provider Family Medicine
DX: T14.8XXA Other injury of unspecified body region, initial encounter (principal)
CPT/HCPCS: 73140; 87070; 87077; 87186; 87205

== ENCOUNTER 2019-12-30 13:15 | Outpatient (RCR) | payer MEDICARE, SELFPAY ==
[2019-11-01 08:36] VITALS: BMI 35.6
[2019-12-30 13:43] VITALS: BP 111/44; PULSE 53; RESP 18; TEMP 36.4; BMI 35.6
--- NOTE | 2019-12-30 16:05 | PCM.WC.HP ---
(1) Third degree burn of finger of left hand excluding thumb Status: Acute Current Visit: Yes Qualifiers: Encounter type: initial encounter Qualified Code(s): T23.322A - Burn of third degree of single left finger (nail) except thumb, initial encounter Code(s): T23.322A - Burn of third degree of single left finger (nail) except thumb, initial encounter (2) COPD (chronic obstructive pulmonary disease) Status: Chronic Current Visit: No Code(s): J44.9 - Chronic obstructive pulmonary disease, unspecified (3) CVA (cerebral vascular accident) Status: Chronic Current Visit: No Qualifiers: Code(s): I63.9 - Cerebral infarction, unspecified (4) Chronic diastolic (congestive) heart failure Status: Chronic Current Visit: No Code(s): I50.32 - Chronic diastolic (congestive) heart failure (5) Chronic obstructive pulmonary disease Status: Chronic Current Visit: No Qualifiers: Code(s): J44.9 - Chronic obstructive pulmonary disease, unspecified (6) Chronic renal disease, stage V Status: Chronic Current Visit: No Code(s): N18.5 - Chronic kidney disease, stage 5 (7) Chronic respiratory failure with hypoxia Status: Chronic Current Visit: No Code(s): J96.11 - Chronic respiratory failure with hypoxia (8) Depression Status: Chronic Current Visit: No Code(s): F32.9 - Major depressive disorder, single episode, unspecified (9) Essential hypertension Status: Chronic Current Visit: No Code(s): I10 - Essential (primary) hypertension (10) HLD (hyperlipidemia) Status: Chronic Current Visit: No Qualifiers: Code(s): E78.5 - Hyperlipidemia, unspecified (11) Neuropathic pain Status: Chronic Current Visit: No Code(s): M79.2 - Neuralgia and neuritis, unspecified (12) Obesity Status: Chronic Current Visit: No Code(s): E66.9 - Obesity, unspecified (13) Obstructive sleep apnea Status: Chronic Current Visit: No Code(s): G47.33 - Obstructive sleep apnea (adult) (pediatric) (14) Peripheral arterial occlusive disease Status: Chronic Current Visit: No Code(s): I77.9 - Disorder of arteries and arterioles, unspecified (15) 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 The patient states that she was cooking and due to her neuropathy, she did not notice that when she picked up a mike that she was cooking with that was still hot. She suffered a burn and followed up with her primary care who did an x-ray which showed soft tissue swelling. Cultures were done as well and earlier this week the patient was started on Keflex and doxycycline after staph aureus was shown. She denies any increase in redness or pain, her wound care has consisted of covering with antibiotic ointment and gauze. She denies a lot of drainage. She does state that her Tdap is up-to-date. Denies any other aggravating relieving factors. All other systems reviewed and negative with exception of those listed above. 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 (Chronic ~03/2018) CREST variant of scleroderma (Chronic) COPD (chronic obstructive pulmonary disease) (Chronic) Vitamin D deficiency (Chronic) Type 2 diabetes mellitus (Chronic) Obstructive sleep apnea (Chronic) Neuropathic pain (Chronic) Obesity (Chronic) CREST syndrome (Chronic) HLD (hyperlipidemia) (Chronic) Chronic obstructive pulmonary disease (Chronic) Chronic respiratory failure with hypoxia (Chronic) 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) Chronic renal disease, stage V (Chronic) CVA (cerebral vascular accident) (Chronic) Secondary pulmonary arterial hypertension (Chronic) Paroxysmal atrial fibrillation (Chronic) Chronic diastolic (congestive) heart failure (Chronic) Essential hypertension (Chronic) Peripheral arterial occlusive disease (Chronic) Surgical History: cholecystectomy, rotator cuff repair, tonsillectomy, - - Status post craniotomy, dialysis catheter insertion and AVF, status post Achilles tendon repair, bilateral carpal tunnel repair/release Allergies/Adverse Reactions: Allergies No Known Allergies Allergy (Verified 11/01/19 09:36) Home Medications: Ambulatory Orders Medication Instructions Recorded Insulin Aspart [Novolog Flexpen] See Protocol SQ 4X/DAY 03/01/18 pantoprazole 40 mg tablet,delayed 40 mg PO DAILY 04/06/18 release calcitriol 0.25 mcg capsule 0.25 mcg PO DAILY 09/09/18 Acetaminophen [Tylenol Tablet] 650 mg PO Q6H PRN PRN tab 11/15/18 Nystatin Powder [Mycostatin Powder] 1 applic TOPICAL BID #1 bottle 11/15/18 insulin glargine 100 unit/mL 20 unit SC DAILY ml 12/15/18 subcutaneous solution metoprolol succinate 25 mg 12.5 mg PO DAILY tab 12/30/18 tablet,extended release 24 hr aspirin 325 mg tablet 325 mg PO BID tab 02/23/19 escitalopram oxalate 10 mg tablet 10 mg PO DAILY 02/23/19 furosemide 80 mg tablet 80 mg PO DAILY 02/23/19 Atorvastatin Calcium [Lipitor] 40 mg PO DAILY 06/21/19 amiodarone 200 mg tablet 100 mg PO DAILY tab 11/18/19 clonidine HCl 0.1 mg tablet 0.1 mg PO DAILY tab 11/18/19 Potassium Chloride [K-Dur] 20 meq BC DAILY 12/30/19 - Family History Maternal Family History: Family History (Last Reviewed 11/01/19 @ 09:37 by Jazlyn Moffett) Mother Cancer Diabetes Kidney disease Father Heart disease Diabetes Kidney disease Cancer, Diabetes, Renal Disease Paternal Family History: Family History (Last Reviewed 11/01/19 @ 09:37 by Jazlyn Moffett) Mother Cancer Diabetes Kidney disease Father Heart disease Diabetes Kidney disease Diabetes, Heart Disease, Renal Disease Smoking Status: Never smoker Review of Systems Constitutional: Denies: Chills, Fever, Weight Change Eyes: Denies: Pain, Vision Change HEENT: Denies: Difficulty Hearing, Difficulty Swallowing, Sinus Congestion Cardiovascular: Denies: Chest Pain, Palpitations Respiratory: Denies: Cough, Shortness of Breath Gastrointestinal: Denies: Diarrhea, Nausea, Vomiting Genitourinary: Denies: Dysuria, Hematuria Skin: Reports: Wounds - burn see hpi Endocrine: Denies: Heat/ Cold Intolerance, Polydipsia, Polyuria Hematologic/ Lymphatic: Denies: Easy Bruising, Easy Bleeding - Physical Exam Vital Signs Temp Pulse Resp BP 97.5 F L 53 L 18 111/44 L 12/30/19 13:43 12/30/19 13:43 12/30/19 13:43 12/30/19 13:43 General: Alert, Oriented x3, Cooperative, No apparent distress HEENT: Atraumatic Oral: Moist Mucosa Neck: Supple Lungs: Clear to auscultation, Normal air movement, Diminished, - - long penit[facility] supplemental o2 Cardiovascular: Regular rate, Regular Rhythm, Normal S1, Normal S2 Abdomen: Soft, Non Tender, Obese Extremities: No clubbing, No cyanosis, Diminished Peripheral Pulses, Edema - bilateral lower extremities Skin: Ulcer/ Wound - Third-degree burn with tendon exposed and large amount of slough present to left third finger on the dorsal aspect Wound Measurements and Assessment WC - Nurse 1 - General Ulcer Measurement Start: 12/30/19 13:43 Freq: Status: Active Protocol: Activity Type Activity Date Activity User E-Sign Co-Sign Detail Recorded Client Recorded Date Recorded By Document 12/30/19 13:43 MT [id number] 12/30/19 13:55 MT 12/30/19 13:43 Wound Center Nurse 1 [Ulcer Assessment] #2 left middle finger -Current Size (cm) - Length 0.8 -Current Size (cm) - Width 0.8 -Current Size (cm) - Depth 0.4 -Total Square Cm 0.64 -Epithelialization Small 1-33% -Exudate Amt None Present -Wound Margin Thickened & Rolled Under -Granulation Amt Large (67-100%) -Granulation Quality Pale,[place] -Slough/Fibrin Yes -Necrosis Amt Medium (34-66%) -Texture (Susie-wound Skin Appearance) Assessed -Moisture (Susie-wound Skin Appearance Assessed, ) Maceration -Color (Susie-wound Skin Appearance) Assessed [Edema Assessment] -Lower Limb Edema Present NA WC - Nurse 2 - General Ulcer CM Notes Start: 12/30/19 13:43 Freq: Status: Active Protocol: Activity Type Activity Date Activity User E-Sign Co-Sign Detail Recorded Client Recorded Date Recorded By Document 12/30/19 14:04 MW [id number] 12/30/19 14:16 MW 12/30/19 14:04 Wound Center Nurse 2 [Procedure/Treatment] #2 left middle finger -Time 14:04 -Correct Patient Yes -Correct Side, Site, Position Yes -Correct Procedure Yes -Procedure Performed Yes -Type of Procedure Debridement -Clinical Debridement Subcutaneous -Post Debridement Size (cm) - Length 2.1 -Post Debridement Size (cm) - Width 2.0 -Post Debridement Size (cm) - Depth 0.5 -Total Square Cm 4.20 -Wound/Ulcer Outcome Not Healed -Ulcer Cleansing Rinsed/ Irrigated with Saline -Foul Odor after Cleansing No -Bioengineered Tissue No -Bleeding Controlled with Pressure -Offloading No -Treatment Response Procedure Tolerated Well [See Physician Procedure note for Specifics] Pain Scale: 0-10 Numeric [Pain] -Is Patient Pain Free? Yes Neurological: Neuro grossly intact Psych/Mental Status: Normal Affect, Appropriate, Alert and oriented to time, place, person, mood and affect Debridement Note Post-Debridement Measurements/Treatment WC - Nurse 2 - General Ulcer CM Notes Start: 12/30/19 13:43 Freq: Status: Active Protocol: Activity Type Activity Date Activity User E-Sign Co-Sign Detail Recorded Client Recorded Date Recorded By Document 12/30/19 14:04 MW [id number] 12/30/19 14:16 MW 12/30/19 14:04 Wound Center Nurse 2 #2 left middle finger -Time 14:04 -Correct Patient Yes -Correct Side, Site, Position Yes -Correct Procedure Yes -Procedure Performed Yes -Type of Procedure Debridement -Clinical Debridement Subcutaneous -Post Debridement Size (cm) - Length 2.1 -Post Debridement Size (cm) - Width 2.0 -Post Debridement Size (cm) - Depth 0.5 -Total Square Cm 4.20 -Wound/Ulcer Outcome Not Healed -Ulcer Cleansing Rinsed/ Irrigated with Saline -Foul Odor after Cleansing No -Bioengineered Tissue No -Bleeding Controlled with Pressure -Offloading No -Treatment Response Procedure Tolerated Well Pain Scale: 0-10 Numeric Is Patient Pain Free? Yes Wound debrided: Third-degree burn left third finger Laterality: Left Type of Debridement: Excisional debridement Anesthesia Used: 5% Lidocaine Gel Depth: in the subcutaneous layer, to muscle Percentage of wound debrided: 100 Instrument Used: 5mm curette Tissue Removed: Slough and devitalized tissue Severity: Necrosis of Muscle Amount of bleeding with debridement: Mild Bleeding Controlled with: Pressure Patient tolerated procedure well Assessment/Plan Active Problems (Last Reviewed 11/01/19 @ 09:37 by Jazlyn Moffett) Third degree burn of finger of left hand excluding thumb (Acute) Assessment: Third-degree burn to left middle finger tendon exposed with current staph aureus infection. Peripheral arterial disease. Diabetes type II uncontrolled. Renal insufficiency and disease Plan: The patient was seen and examined at the wound center today and was updated on the plan of care. A subcutaneous/muscular debridement was performed today. The patient tolerated the procedure well. The patients wound care will consist of: Amount of slough, meta honey to be applied daily cover with gauze cleanse daily with Dial soap. Wound cultures were collected. Patient to continue with her doxycycline and Keflex for her prior culture of staph aureus. Baseline bloodwork ordered. Patient educated on the importance of diet on wound healing and instructed to increase protein and vitamin C intake. Patient verbalized understanding. Patient will follow up at wound healing center in one week or sooner if needed. Patient instructed to continue following up with her multiple specialists and her primary care provider. Patient instructed again on the importance of good glycemic control. Discussed in detail signs of worsening infection that require urgent medical attention, patient and verbalized understanding. This note was generated with [employer] dictation software. It may contain incorrect words, spelling, and punctuation that were not noted in checking the note before signing. Office Visits / Consults: [id number] OV L4 Est 111xxx-113xx: [id number] Nikki musc/fascia 20 sq cm/<
[2019-12-30 17:18] LABS: Absolute Lymphocyte Count 1.03 X10^3/uL (0.83-4.51); Absolute Neutrophil Count 2.9 X10^3/uL (2.0-7.7); Basophil# 0.04 X10^3/uL; Basophil% 0.9 % (0-1); Eosinophil# 0.25 X10^3/uL; Eosinophils% 5.3 % (0-5); Hematocrit 30.7 % (37-47); Hemoglobin 9.5 g/dL (12.0-15.0); Lymphocyte # 1.03 X10^3/ul (4.0); Mean Corp Hgb Conc 30.9 g/dL (32-36); Mean Corpuscular Hgb 31.7 pg (27.0-32.0); Mean Corpuscular Volume 102.3 fL (81-99); Mean Platelet Vol. 10.3 fl (6.2-12.0); Monocyte# 0.43 X10^3/uL; Monocyte% 9.2 % (0-10); NRBC Flagged by Analyzer 0 % (0-5); Neutrophil # 2.89 X10^3/uL (2.7-7.7); Neutrophil % 61.5 % (47-70); POSITIVE COUNT YES; POSITIVE MORPHOLOGY YES; Platelet Count 83 K/mm3 (150-450); RBC Distribution Width SD 67.1 fl (35.1-43.9); White Blood Count 4.7 K/mm3 (4.4-11.0)
[2019-12-30 17:20] LABS: Differential Indicated SCAN CRITERIA MET
[2019-12-30 17:54] LABS: Differential Comment SLIDE SCANNED
[2019-12-30 17:55] LABS: Anisocytosis 1+; Macrocytosis 1+; Platelet Estimate MOD DEC (ADEQ); Red Cell Morphology N CHROM NORMAL (NORM C&C)
[2019-12-30 17:59] LABS: Hemoglobin A1c 4.9 % (4.2-6.3)
[2019-12-30 18:00] LABS: ALB/GLOB Ratio 0.7 RATIO (0.9-2.4); AST(SGOT) 17 U/L (15-37); Alanine Aminotransfer ALT/SGPT 14 U/L (13-56); Albumin, Serum 2.7 g/dL (3.2-5.0); Alkaline Phosphatase 94 U/L (45-117); Anion Gap 12 (5-15); BUN 27 mg/dL (7-18); BUN/Creat Ratio 5.9 RATIO (10-20); Chloride 99 mmol/L (98-107); Creatinine, Serum 4.55 mg/dL (0.55-1.02); EST Glomerular Filtration Rate 10 mL/min (>60); Est Glom Filt Rate - Afr Amer 12 mL/min (>60); Globulin 4.1 g/dL (2.2-4.2); Glucose 131 mg/dL (74-106); Potassium 2.7 mmol/L (3.5-5.1); Prealbumin 13.1 mg/dL (20.0-40.0); Protein, Total 6.8 g/dL (6.4-8.2); Sodium Level 136 mmol/L (136-145)
== END 2020-01-04 23:59 ==
LOC: WC 13:15
PROVIDERS: PCP Family Medicine; Referring Provider Nurse Practitioner Family; Visit Provider Nurse Practitioner Family
DX: T23.022A Burn of unspecified degree of single left finger (nail) except thumb, initial encounter (principal); J44.9 Chronic obstructive pulmonary disease, unspecified; I50.32 Chronic diastolic (congestive) heart failure; I13.2 Hypertensive heart and chronic kidney disease with heart failure and with stage 5 chronic kidney disease, or end stage renal disease; J96.11 Chronic respiratory failure with hypoxia; E78.5 Hyperlipidemia, unspecified; E66.9 Obesity, unspecified; G47.33 Obstructive sleep apnea (adult) (pediatric); E11.51 Type 2 diabetes mellitus with diabetic peripheral angiopathy without gangrene; E11.22 Type 2 diabetes mellitus with diabetic chronic kidney disease; Z99.2 Dependence on renal dialysis; X19.XXXA Contact with other heat and hot substances, initial encounter; E11.40 Type 2 diabetes mellitus with diabetic neuropathy, unspecified; I48.0 Paroxysmal atrial fibrillation; I27.21 Secondary pulmonary arterial hypertension; M34.1 CR(E)ST syndrome; R91.1 Solitary pulmonary nodule; Z79.899 Other long term (current) drug therapy; Z79.4 Long term (current) use of insulin; Z79.82 Long term (current) use of aspirin
CPT/HCPCS: 11043; 80053; 83036; 84134; 85025; 87070; 87075; 87077; 87186; 87205; 99213; G0463

== ENCOUNTER → 2020-01-28 13:04 | Outpatient (CLI) | payer MEDICARE, SELFPAY ==
[2020-01-27 08:15] VITALS: BMI 35.6
[2020-01-28 15:43] LABS: AST(SGOT) 23 U/L (15-37); Alanine Aminotransfer ALT/SGPT 22 U/L (13-56); Albumin, Serum 2.2 g/dL (3.2-5.0); Alkaline Phosphatase 116 U/L (45-117); Bilirubin, Direct 0.22 mg/dL (0.00-0.30); Cholesterol 106 mg/dL (200); Globulin 4.4 g/dL (2.2-4.2); High Density Lipoprotein 76 mg/dL; Protein, Total 6.6 g/dL (6.4-8.2); Triglycerides 76 mg/dL; Very Low Density Lipoprotein 15 mg/dL (5-40)
== END ==
PROVIDERS: PCP Family Medicine; Referring Provider Family Medicine; Visit Provider Family Medicine
DX: E11.9 Type 2 diabetes mellitus without complications (principal)
CPT/HCPCS: 36415; 80061; 80076

== ENCOUNTER 2020-02-03 11:00 | Outpatient (RCR) | payer MEDICARE, SELFPAY ==
[2020-01-05 01:02] VITALS: BP 111/44; PULSE 53; RESP 18; TEMP 36.4
[2020-01-06 12:49] VITALS: BP 94/35; PULSE 60; RESP 18; TEMP 35.7; BMI 35.6
--- NOTE | 2020-01-06 13:28 | PN.PCM_ITS ---
(1) Third degree burn of finger of left hand excluding thumb Status: Chronic Current Visit: Yes Qualifiers: Code(s): T23.322A - Burn of third degree of single left finger (nail) except thumb, initial encounter (2) Chronic renal disease, stage V Status: Chronic Current Visit: Yes Code(s): N18.5 - Chronic kidney disease, stage 5 (3) Type 2 diabetes mellitus Status: Chronic Current Visit: Yes Code(s): E11.9 - Type 2 diabetes mellitus without complications Type of Wound Date of Service: 01/06/20 Chief Complaint: Left 3rd middle finger third-degree burn x3 weeks History of Wound: This is a 74-year-old white female who presents to the wound healing center today with her with complaint of burn to her left middle finger x3 weeks. 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 The patient states that she was cooking and due to her neuropathy, she did not notice that when she picked up a mike that she was cooking with that was still hot. She suffered a burn and followed up with her primary care who did an x-ray which showed soft tissue swelling. Cultures were done as well and earlier this week the patient was started on Keflex and doxycycline after staph aureus was shown. She denies any increase in redness or pain, her wound care has consisted of covering with antibiotic ointment and gauze. She denies a lot of drainage. She does state that her Tdap is up-to-date. Denies any other aggravating relieving factors. All other systems reviewed and negative with exception of those listed above. Progress of Wound: Courtesy Visit for Manuel Whiting NP. No new concerns at this time. Has been using Medihoney. Appears improved. - Physical Exam Vital Signs Temp Pulse Resp BP 96.3 F L 60 18 94/35 L 01/06/20 12:49 01/06/20 12:49 01/06/20 12:49 01/06/20 12:49 General: Alert, Oriented x3, Cooperative, No apparent distress HEENT: Atraumatic, Normocephalic Oral: Moist Mucosa Neck: Supple Extremities: No cyanosis Skin: Ulcer/ Wound Wound Measurements and Assessment WC - Nurse 1 - General Ulcer Measurement Start: 01/06/20 12:47 Freq: Status: Active Protocol: Activity Type Activity Date Activity User E-Sign Co-Sign Detail Recorded Client Recorded Date Recorded By Document 01/06/20 12:49 DV [id number] 01/06/20 13:03 DV 01/06/20 12:49 Wound Center Nurse 1 [Ulcer Assessment] #2 left middle finger -Combined with other wound No -Current Size (cm) - Length 1.5 -Current Size (cm) - Width 2.2 -Current Size (cm) - Depth 0.5 -Total Square Cm 3.30 -Photo Taken No -Epithelialization None Present -Tunneling No -Undermining/Tunneling No -Circular Undermining No -Classification - Thickness Full Thickness with Exposed Support Structure -Wound Margin Indistinct, Non -Visible -Granulation Amt None Present (0 %) -Granulation Quality N/A -Slough/Fibrin Yes -Necrosis Amt Large (67-100%) -Necrotic Tissue Type Adherent Slough -Structure Exposed Tendon,None/ Limited to Skin Breakdown -Texture (Susie-wound Skin Appearance) Assessed, Localized Edema ,Scarring -Moisture (Susie-wound Skin Appearance Assessed, ) Weeping -Color (Susie-wound Skin Appearance) Assessed, Erythema -Temperature (Susie-wound Skin No Abnormality Appearance) (Pt Warm) -Tenderness on Palpation (Susie-wound No Skin Appearance) -Foul Odor after Cleansing No -Anesthetic Used 4% Lidocaine Solution WC - Nurse 2 - General Ulcer CM Notes Start: 01/06/20 12:47 Freq: Status: Active Protocol: Activity Type Activity Date Activity User E-Sign Co-Sign Detail Recorded Client Recorded Date Recorded By Document 01/06/20 13:11 MW [id number] 01/06/20 13:13 MW 01/06/20 13:11 Wound Center Nurse 2 [Procedure/Treatment] -Time 13:11 -Correct Patient Yes -Correct Side, Site, Position Yes -Correct Procedure Yes -Procedure Performed Yes -Type of Procedure Debridement -Clinical Debridement Subcutaneous -Post Debridement Size (cm) - Length 1.8 -Post Debridement Size (cm) - Width 2.0 -Post Debridement Size (cm) - Depth 0.3 -Total Square Cm 3.60 -Wound/Ulcer Outcome Not Healed -Ulcer Cleansing Rinsed/ Irrigated with Saline -Foul Odor after Cleansing No -Bioengineered Tissue No -Bleeding Controlled with Pressure -Offloading No -Treatment Response Procedure Tolerated Well [See Physician Procedure note for Specifics] Pain Scale: 0-10 Numeric [Pain] -Is Patient Pain Free? Yes Neurological: Cranial nerves II-XII grossly intact Psych/Mental Status: Normal Affect Debridement Note Post-Debridement Measurements/Treatment WC - Nurse 2 - General Ulcer CM Notes Start: 01/06/20 12:47 Freq: Status: Active Protocol: Activity Type Activity Date Activity User E-Sign Co-Sign Detail Recorded Client Recorded Date Recorded By Document 01/06/20 13:11 MW [id number] 01/06/20 13:13 MW 01/06/20 13:11 Wound Center Nurse 2 #2 left middle finger -Time 13:11 -Correct Patient Yes -Correct Side, Site, Position Yes -Correct Procedure Yes -Procedure Performed Yes -Type of Procedure Debridement -Clinical Debridement Subcutaneous -Post Debridement Size (cm) - Length 1.8 -Post Debridement Size (cm) - Width 2.0 -Post Debridement Size (cm) - Depth 0.3 -Total Square Cm 3.60 -Wound/Ulcer Outcome Not Healed -Ulcer Cleansing Rinsed/ Irrigated with Saline -Foul Odor after Cleansing No -Bioengineered Tissue No -Bleeding Controlled with Pressure -Offloading No -Treatment Response Procedure Tolerated Well Pain Scale: 0-10 Numeric Is Patient Pain Free? Yes Wound debrided: Left middle finger Type of Debridement: Excisional debridement Anesthesia Used: 4% Lidocaine Solution Depth: Down to and including healthy tissue, in the subcutaneous layer Percentage of wound debrided: 100 Instrument Used: 3mm curette Tissue Removed: Slough and devitalized tissue Severity: Fat Layer Exposed Amount of bleeding with debridement: Mild Bleeding Controlled with: Pressure Patient tolerated procedure well Assessment/Plan Active Problems (Last Reviewed 11/01/19 @ 09:37 by Jazlyn Moffett) Third degree burn of finger of left hand excluding thumb (Chronic) Type 2 diabetes mellitus (Chronic) Chronic renal disease, stage V (Chronic) Assessment: Third-degree burn to left middle finger tendon exposed with current staph aureus infection. Peripheral arterial disease. Diabetes type II uncontrolled. Renal insufficiency and disease Plan: Courtesy visit. Debridement done as documented above. Procedure was well-tolerated. Will switch from Medi honey to Fibracol. Change daily to twice daily. Adaptic and gauze over top. Continue other chronic wound management. Her questions were answered and she was advised to call with any concerns. Follow-up in a week. This note was generated with [employer] software. It may contain incorrect words, spelling, and punctuation that were not noted in checking the note before signing. 111xxx-[id number]: [id number] Nikki subq tissue 20 sq cm/<
[2020-01-13 08:13] VITALS: BP 96/60; PULSE 51; RESP 18; TEMP 36.6; BMI 35.6
--- NOTE | 2020-01-13 09:58 | PN.PCM_ITS ---
(1) Third degree burn of finger of left hand excluding thumb Status: Chronic Qualifiers: Code(s): T23.322A - Burn of third degree of single left finger (nail) except thumb, initial encounter (2) Chronic renal disease, stage V Status: Chronic Code(s): N18.5 - Chronic kidney disease, stage 5 (3) Type 2 diabetes mellitus Status: Chronic Code(s): E11.9 - Type 2 diabetes mellitus without complications (4) Skin ulcer of middle finger with fat layer exposed Status: Chronic Code(s): L98.492 - Non-pressure chronic ulcer of skin of other sites with fat layer exposed (5) Peripheral arterial occlusive disease Status: Chronic Code(s): I77.9 - Disorder of arteries and arterioles, unspecified Type of Wound Date of Service: 01/20/20 Chief Complaint: Left 3rd middle finger third-degree burn x3 weeks History of Wound: This is a 74-year-old white female who presents to the wound healing center today with her with complaint of burn to her left middle finger x3 weeks. 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 The patient states that she was cooking and due to her neuropathy, she did not notice that when she picked up a mike that she was cooking with that was still hot. She suffered a burn and followed up with her primary care who did an x-ray which showed soft tissue swelling. Cultures were done as well and earlier this week the patient was started on Keflex and doxycycline after staph aureus was shown. She denies any increase in redness or pain, her wound care has consisted of covering with antibiotic ointment and gauze. She denies a lot of drainage. She does state that her Tdap is up-to-date. Denies any other aggravating relieving factors. All other systems reviewed and negative with exception of those listed above. Progress of Wound: Courtesy Visit for Manuel Whiting NP. No new concerns at this time. Tolerated Fibracol. Tendon still exposed. - Physical Exam Vital Signs Temp Pulse Resp BP 97.8 F 51 L 18 96/60 01/13/20 08:13 01/13/20 08:13 01/13/20 08:13 04/09/20 08:13 General: Alert, Oriented x3, Cooperative, No apparent distress HEENT: Atraumatic, Normocephalic Oral: Moist Mucosa Neck: Supple Lungs: Normal air movement Abdomen: Non Tender, Obese Extremities: No cyanosis Skin: Ulcer/ Wound Wound Measurements and Assessment - Nurse 1 - General Ulcer Measurement Start: 01/06/20 12:47 Freq: Status: Active Protocol: Activity Type Activity Date Activity User E-Sign Co-Sign Detail Recorded Client Recorded Date Recorded By Document 01/13/20 08:13 PL [id number] 01/13/20 08:21 PL 01/13/20 08:13 Wound Center Nurse 1 [Ulcer Assessment] #2 left middle finger -Combined with other wound No -Current Size (cm) - Length 0.8 -Current Size (cm) - Width 1.5 -Current Size (cm) - Depth 0.3 -Total Square Cm 1.20 -Photo Taken No -Epithelialization None Present -Tunneling No -Undermining/Tunneling No -Exudate Amt Large -Exudate Type Serosanguineous -Granulation Amt None Present (0 %) -Slough/Fibrin Yes -Necrosis Amt Large (67-100%) -Necrotic Tissue Type Adherent Slough -Ulcer Cleansing Rinsed/ Irrigated with Saline -Foul Odor after Cleansing No -Anesthetic Used 4% Lidocaine Solution - Nurse 2 - General Ulcer CM Notes Start: 01/06/20 12:47 Freq: Status: Active Protocol: Activity Type Activity Date Activity User E-Sign Co-Sign Detail Recorded Client Recorded Date Recorded By Document 01/13/20 08:47 MW [id number] 01/13/20 08:53 MW 01/13/20 08:47 Wound Center Nurse 2 [Procedure/Treatment] -Time 08:48 -Correct Patient Yes -Correct Side, Site, Position Yes -Correct Procedure Yes -Procedure Performed Yes -Type of Procedure Debridement -Clinical Debridement Subcutaneous -Post Debridement Size (cm) - Length 1.0 -Post Debridement Size (cm) - Width 1.5 -Post Debridement Size (cm) - Depth 0.2 -Total Square Cm 1.50 -Wound/Ulcer Outcome Not Healed -Ulcer Cleansing Rinsed/ Irrigated with Saline -Foul Odor after Cleansing No -Bioengineered Tissue No -Bleeding Controlled with Pressure -Offloading No -Treatment Response Procedure Tolerated Well [See Physician Procedure note for Specifics] Pain Scale: 0-10 Numeric [Pain] -Is Patient Pain Free? Yes Musculoskeletal: No Muscle Wasting Neurological: Cranial nerves II-XII grossly intact Psych/Mental Status: Normal Affect Debridement Note Post-Debridement Measurements/Treatment WC - Nurse 2 - General Ulcer CM Notes Start: 01/06/20 12:47 Freq: Status: Active Protocol: Activity Type Activity Date Activity User E-Sign Co-Sign Detail Recorded Client Recorded Date Recorded By Document 01/06/20 13:11 MW [id number] 01/06/20 13:13 MW Document 01/13/20 08:47 MW [id number] 01/13/20 08:53 MW 01/06/20 01/13/20 13:11 08:47 Wound Center Nurse 2 #2 left middle finger -Time 13:11 08:48 -Correct Patient Yes Yes -Correct Side, Site, Position Yes Yes -Correct Procedure Yes Yes -Procedure Performed Yes Yes -Type of Procedure Debridement Debridement -Clinical Debridement Subcutaneous Subcutaneous -Post Debridement Size (cm) - Length 1.8 1.0 -Post Debridement Size (cm) - Width 2.0 1.5 -Post Debridement Size (cm) - Depth 0.3 0.2 -Total Square Cm 3.60 1.50 -Wound/Ulcer Outcome Not Healed Not Healed -Ulcer Cleansing Rinsed/ Rinsed/ Irrigated with Irrigated with Saline Saline -Foul Odor after Cleansing No No -Bioengineered Tissue No No -Bleeding Controlled with Pressure Pressure -Offloading No No -Treatment Response Procedure Procedure Tolerated Well Tolerated Well Pain Scale: 0-10 Numeric Is Patient Pain Free? Yes Yes Wound debrided: Left Middle Finger Type of Debridement: Excisional debridement Depth: Down to and including healthy tissue, in the subcutaneous layer Percentage of wound debrided: 100 Instrument Used: 3mm curette Tissue Removed: Slough and devitalized tissue Severity: Fat Layer Exposed Amount of bleeding with debridement: Mild Bleeding Controlled with: Pressure Patient tolerated procedure well Assessment/Plan Assessment: Third-degree burn to left middle finger tendon exposed with current staph aureus infection. Peripheral arterial disease. Diabetes type II uncontrolled. Renal insufficiency and disease Plan: Courtesy visit. Debridement done as documented above. Procedure was well-tolerated. Switched to Fibracol at her last visit and surrounding ulceration has improved however still significant depth and tendon exposure. Continue Fibracol and adaptic for now however, due to significant tendon exposure and other co morbidities, I believe she would benefit from a skin substitute. Continue other chronic wound management. Her questions were answered and she was advised to call with any concerns. Follow-up in 2 weeks. This note was generated with [employer] dictation software. It may contain incorrect words, spelling, and punctuation that were not noted in checking the note before signing. [id number]: [id number] Nikki subq tissue 20 sq cm/<
[2020-01-27 08:15] VITALS: BP 135/37; PULSE 51; RESP 18; TEMP 36.4; BMI 35.6
--- NOTE | 2020-01-27 09:12 | PN.PCM_ITS ---
(1) Third degree burn of finger of left hand excluding thumb Status: Chronic Current Visit: No Qualifiers: Code(s): T23.322A - Burn of third degree of single left finger (nail) except thumb, initial encounter (2) Chronic renal disease, stage V Status: Chronic Current Visit: No Code(s): N18.5 - Chronic kidney disease, stage 5 (3) Type 2 diabetes mellitus Status: Chronic Current Visit: No Code(s): E11.9 - Type 2 diabetes mellitus without complications (4) Skin ulcer of middle finger with fat layer exposed Status: Chronic Current Visit: No Code(s): L98.492 - Non-pressure chronic ulcer of skin of other sites with fat layer exposed (5) Peripheral arterial occlusive disease Status: Chronic Current Visit: No Code(s): I77.9 - Disorder of arteries and arterioles, unspecified (6) Open wound of left index finger Status: Acute Current Visit: Yes Code(s): S61.201A - Unspecified open wound of left index finger without damage to nail, initial encounter Type of Wound Date of Service: 01/28/20 Chief Complaint: Left 3rd middle finger third-degree burn x3 weeks History of Wound: This is a 74-year-old white female who presents to the wound healing center today with her with complaint of burn to her left middle finger x3 weeks. 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 The patient states that she was cooking and due to her neuropathy, she did not notice that when she picked up a mike that she was cooking with that was still hot. She suffered a burn and followed up with her primary care who did an x-ray which showed soft tissue swelling. Cultures were done as well and earlier this week the patient was started on Keflex and doxycycline after staph aureus was shown. She denies any increase in redness or pain, her wound care has consisted of covering with antibiotic ointment and gauze. She denies a lot of drainage. She does state that her Tdap is up-to-date. Denies any other aggravating relieving factors. All other systems reviewed and negative with exception of those listed above. Progress of Wound: New index finger wound. Said to have occurred after she fell and her hand got trapped in her chair. Left middle finger wound is stable. No obvious side effects. - Physical Exam Vital Signs Temp Pulse Resp BP 97.5 F L 51 L 18 135/37 H 01/27/20 08:15 01/27/20 08:15 01/27/20 08:15 01/27/20 08:15 General: Alert, Oriented x3, Cooperative, No apparent distress HEENT: Atraumatic, Normocephalic Oral: Moist Mucosa Neck: Supple Abdomen: Obese Extremities: No cyanosis Skin: Ulcer/ Wound Wound Measurements and Assessment WC - Nurse 1 - General Ulcer Measurement Start: 01/06/20 12:47 Freq: Status: Active Protocol: Activity Type Activity Date Activity User E-Sign Co-Sign Detail Recorded Client Recorded Date Recorded By Document 01/27/20 08:15 RB [id number] 01/27/20 08:23 RB 01/27/20 08:15 Wound Center Nurse 1 [Ulcer Assessment] 3. L Index finger -Current Size (cm) - Length 1 -Current Size (cm) - Width 1.5 -Current Size (cm) - Depth 0.1 -Total Square Cm 1.5 -Photo Taken Yes -Tunneling No -Undermining/Tunneling No -Circular Undermining No -Exudate Amt Small -Exudate Type Serosanguineous -Wound Margin Flat & Intact -Granulation Amt Small (1-33%) -Granulation Quality [place] -Slough/Fibrin Yes -Necrosis Amt Large (67-100%) -Necrotic Tissue Type Adherent Slough -Structure Exposed N/A -Texture (Susie-wound Skin Appearance) Assessed, Friable -Moisture (Susie-wound Skin Appearance Assessed ) -Color (Susie-wound Skin Appearance) Assessed -Temperature (Susie-wound Skin No Abnormality Appearance) (Pt Warm) -Tenderness on Palpation (Susie-wound No Skin Appearance) -Ulcer Cleansing Wound Cleanser -Foul Odor after Cleansing No -Anesthetic Used 4% Lidocaine Solution #2 left middle finger -Combined with other wound No -Current Size (cm) - Length 1 -Current Size (cm) - Width 0.6 -Current Size (cm) - Depth 0.2 -Total Square Cm 0.6 -Tunneling No -Undermining/Tunneling No -Circular Undermining No -Exudate Amt Small -Exudate Type Serosanguineous -Wound Margin Thickened & Rolled Under -Granulation Amt Small (1-33%) -Granulation Quality [place] -Slough/Fibrin Yes -Necrosis Amt Large (67-100%) -Necrotic Tissue Type Adherent Slough -Structure Exposed N/A -Texture (Susie-wound Skin Appearance) Assessed -Moisture (Susie-wound Skin Appearance Assessed ) -Color (Susie-wound Skin Appearance) Erythema -Temperature (Susie-wound Skin No Abnormality Appearance) (Pt Warm) -Tenderness on Palpation (Susie-wound No Skin Appearance) -Ulcer Cleansing Wound Cleanser -Foul Odor after Cleansing No -Anesthetic Used 4% Lidocaine Solution WC - Nurse 2 - General Ulcer CM Notes Start: 01/06/20 12:47 Freq: Status: Active Protocol: Activity Type Activity Date Activity User E-Sign Co-Sign Detail Recorded Client Recorded Date Recorded By Document 01/27/20 08:39 MW [id number] 01/27/20 08:49 MW 01/27/20 08:39 Wound Center Nurse 2 [Procedure/Treatment] 3. L Index finger -Time 08:39 -Correct Patient Yes -Correct Side, Site, Position Yes -Correct Procedure Yes -Procedure Performed Yes -Type of Procedure Debridement -Clinical Debridement Subcutaneous -Post Debridement Size (cm) - Length 1.2 -Post Debridement Size (cm) - Width 1.4 -Post Debridement Size (cm) - Depth 0.1 -Total Square Cm 1.68 -Wound/Ulcer Outcome Not Healed -Ulcer Cleansing Rinsed/ Irrigated with Saline -Foul Odor after Cleansing No -Bioengineered Tissue No -Bleeding Controlled with Pressure -Offloading No -Treatment Response Procedure Tolerated Well #2 left middle finger -Time 08:40 -Correct Patient Yes -Correct Side, Site, Position Yes -Correct Procedure Yes -Procedure Performed Yes -Type of Procedure Debridement -Clinical Debridement Subcutaneous -Post Debridement Size (cm) - Length 0.9 -Post Debridement Size (cm) - Width 0.6 -Post Debridement Size (cm) - Depth 0.2 -Total Square Cm 0.54 -Wound/Ulcer Outcome Not Healed -Ulcer Cleansing Rinsed/ Irrigated with Saline -Foul Odor after Cleansing No -Bioengineered Tissue Yes -Type of bioengineered Tissue EPIFIX -Expiration Date 10/06/24 -Product Lot Number [id number] -Percent Used 100 -Saline Lot Number [id number] -Bleeding Controlled with Pressure -Offloading No -Treatment Response Procedure Tolerated Well [See Physician Procedure note for Specifics] Pain Scale: 0-10 Numeric [Pain] -Is Patient Pain Free? Yes Musculoskeletal: No Muscle Wasting Neurological: Cranial nerves II-XII grossly intact Debridement Note Post-Debridement Measurements/Treatment WC - Nurse 2 - General Ulcer CM Notes Start: 01/06/20 12:47 Freq: Status: Active Protocol: Activity Type Activity Date Activity User E-Sign Co-Sign Detail Recorded Client Recorded Date Recorded By Document 01/06/20 13:11 MW [id number] 01/06/20 13:13 MW Document 01/13/20 08:47 MW [id number] 01/13/20 08:53 MW Document 01/27/20 08:39 MW [id number] 01/27/20 08:49 MW 01/06/20 01/13/20 01/27/20 13:11 08:47 08:39 Wound Center Nurse 2 3. L Index finger -Time 08:39 -Correct Patient Yes -Correct Side, Site, Position Yes -Correct Procedure Yes -Procedure Performed Yes -Type of Procedure Debridement -Clinical Debridement Subcutaneous -Post Debridement Size (cm) - Length 1.2 -Post Debridement Size (cm) - Width 1.4 -Post Debridement Size (cm) - Depth 0.1 -Total Square Cm 1.68 -Wound/Ulcer Outcome Not Healed -Ulcer Cleansing Rinsed/ Irrigated with Saline -Foul Odor after Cleansing No -Bioengineered Tissue No -Bleeding Controlled with Pressure -Offloading No -Treatment Response Procedure Tolerated Well #2 left middle finger -Time 13:11 08:48 08:40 -Correct Patient Yes Yes Yes -Correct Side, Site, Position Yes Yes Yes -Correct Procedure Yes Yes Yes -Procedure Performed Yes Yes Yes -Type of Procedure Debridement Debridement Debridement -Clinical Debridement Subcutaneous Subcutaneous Subcutaneous -Post Debridement Size (cm) - Length 1.8 1.0 0.9 -Post Debridement Size (cm) - Width 2.0 1.5 0.6 -Post Debridement Size (cm) - Depth 0.3 0.2 0.2 -Total Square Cm 3.60 1.50 0.54 -Wound/Ulcer Outcome Not Healed Not Healed Not Healed -Ulcer Cleansing Rinsed/ Rinsed/ Rinsed/ Irrigated with Irrigated with Irrigated with Saline Saline Saline -Foul Odor after Cleansing No No No -Bioengineered Tissue No No Yes -Type of bioengineered Tissue EPIFIX -Expiration Date 10/06/24 -Product Lot Number [id number] -Percent Used 100 -Saline Lot Number [id number] -Bleeding Controlled with Pressure Pressure Pressure -Offloading No No No -Treatment Response Procedure Procedure Procedure Tolerated Well Tolerated Well Tolerated Well Pain Scale: 0-10 Numeric Is Patient Pain Free? Yes Yes Yes Wound debrided: Left middle finger Type of Debridement: Excisional debridement Anesthesia Used: 4% Lidocaine Solution Depth: Down to and including healthy tissue, in the subcutaneous layer Percentage of wound debrided: 100 Instrument Used: 3mm curette Tissue Removed: Slough and devitalized tissue Severity: Fat Layer Exposed Amount of bleeding with debridement: Mild Bleeding Controlled with: Pressure Patient tolerated procedure well - Additional Wound Wound debrided: Left index finger Type of Debridement: Excisional debridement Anesthesia Used: 4% Lidocaine Solution Depth: Down to and including healthy tissue, in the subcutaneous layer Instrument Used: 3mm curette Tissue Removed: Slough and devitalized tissue Severity: Fat Layer Exposed Amount of bleeding with debridement: Mild Bleeding Controlled with: Pressure Patient tolerated procedure: Patient tolerated procedure well Assessment/Plan Active Problems (Last Reviewed 11/01/19 @ 09:37 by Jazlyn Moffett) Open wound of left index finger (Acute) Assessment: Third-degree burn to left middle finger tendon exposed. Left index finger wound( Penetrating with fat layer exposed ). Peripheral arterial disease. Diabetes type II uncontrolled. Renal insufficiency and disease Plan: Debridement done as documented above. Procedure was well-tolerated. Now approved for epi-fix. Initial application done today using 100% of product. Moistened with saline, wound veil over top and secured with Steri-Strips. Leave on for a week. Continue increased protein intake. Call with any concerns. Follow-up in a week. This note was generated with [employer] dictation software. It may contain incorrect words, spelling, and punctuation that were not noted in checking the note before signing. Multi Select Codes - Integumentary Integumentary CPT Codes: 01670 Nikki subq tissue 20 sq cm/<, [id number] Skin sub graft trnk/arm/leg
[2020-02-03 10:53] VITALS: BP 136/37; PULSE 59; RESP 16; TEMP 36.3; BMI 35.6
--- NOTE | 2020-02-03 12:00 | PCM.WC.PN ---
(1) Third degree burn of finger of left hand excluding thumb Status: Chronic Current Visit: Yes Qualifiers: Code(s): T23.322A - Burn of third degree of single left finger (nail) except thumb, initial encounter (2) Chronic renal disease, stage V Status: Chronic Current Visit: Yes Code(s): N18.5 - Chronic kidney disease, stage 5 (3) Type 2 diabetes mellitus Status: Chronic Current Visit: Yes Code(s): E11.9 - Type 2 diabetes mellitus without complications (4) Skin ulcer of middle finger with fat layer exposed Status: Chronic Current Visit: No Code(s): L98.492 - Non-pressure chronic ulcer of skin of other sites with fat layer exposed (5) Peripheral arterial occlusive disease Status: Chronic Current Visit: No Code(s): I77.9 - Disorder of arteries and arterioles, unspecified (6) Open wound of left index finger Status: Acute Current Visit: Yes Code(s): S61.201A - Unspecified open wound of left index finger without damage to nail, initial encounter Type of Wound Date of Service: 02/03/20 Chief Complaint: Left 3rd middle finger third-degree burn x3 weeks History of Wound: This is a 74-year-old white female who presents to the wound healing center today with her with complaint of burn to her left middle finger x3 weeks. 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 The patient states that she was cooking and due to her neuropathy, she did not notice that when she picked up a mike that she was cooking with that was still hot. She suffered a burn and followed up with her primary care who did an x-ray which showed soft tissue swelling. Cultures were done as well and earlier this week the patient was started on Keflex and doxycycline after staph aureus was shown. She denies any increase in redness or pain, her wound care has consisted of covering with antibiotic ointment and gauze. She denies a lot of drainage. She does state that her Tdap is up-to-date. Denies any other aggravating relieving factors. All other systems reviewed and negative with exception of those listed above. Progress of Wound: Has had 1 application of epi fix. No significant change in the past week. Denies any new concerns. - Physical Exam Vital Signs Temp Pulse Resp BP 97.4 F L 59 L 16 136/37 H 02/03/20 10:53 02/03/20 10:53 02/03/20 10:53 02/03/20 10:53 General: Alert, Oriented x3, Cooperative, No apparent distress HEENT: Atraumatic, Normocephalic Oral: Moist Mucosa Neck: Supple Lungs: Normal air movement Extremities: No cyanosis Skin: Ulcer/ Wound Wound Measurements and Assessment WC - Nurse 1 - General Ulcer Measurement Start: 01/06/20 12:47 Freq: Status: Active Protocol: Activity Type Activity Date Activity User E-Sign Co-Sign Detail Recorded Client Recorded Date Recorded By Document 02/03/20 10:53 [id number] 02/03/20 10:54 02/03/20 10:53 Wound Center Nurse 1 [Ulcer Assessment] 3. L Index finger -Combined with other wound No -Current Size (cm) - Length 1.2 -Current Size (cm) - Width 1.3 -Current Size (cm) - Depth 0.1 -Total Square Cm 1.56 -Photo Taken No -Epithelialization None Present -Tunneling No -Undermining/Tunneling No -Circular Undermining No -Exudate Amt Large -Exudate Type Yellow/Green -Wound Margin Distinct, Outline Attached -Granulation Amt None Present (0 %) -Slough/Fibrin Yes -Necrosis Amt None Present (0 %) -Structure Exposed N/A -Texture (Susie-wound Skin Appearance) No Abnormality, Assessed -Moisture (Susie-wound Skin Appearance No Abnormality, ) Assessed -Color (Susie-wound Skin Appearance) No Abnormality, Assessed -Temperature (Susie-wound Skin No Abnormality Appearance) (Pt Warm) -Ulcer Cleansing Rinsed/ Irrigated with Saline -Foul Odor after Cleansing No -Anesthetic Used 4% Lidocaine Solution #2 left middle finger -Combined with other wound No -Current Size (cm) - Length 0.9 -Current Size (cm) - Width 0.7 -Current Size (cm) - Depth 0.2 -Total Square Cm 0.63 -Photo Taken No -Epithelialization None Present -Tunneling No -Undermining/Tunneling No -Circular Undermining No -Exudate Amt Large -Exudate Type Yellow/Green -Wound Margin Distinct, Outline Attached -Granulation Amt None Present (0 %) -Granulation Quality N/A -Slough/Fibrin Yes -Necrosis Amt None Present (0 %) -Necrotic Tissue Type Adherent Slough -Structure Exposed N/A -Texture (Susie-wound Skin Appearance) No Abnormality, Assessed -Moisture (Susie-wound Skin Appearance No Abnormality, ) Assessed -Color (Susie-wound Skin Appearance) No Abnormality, Assessed, Ecchymosis -Tenderness on Palpation (Susie-wound No Skin Appearance) -Ulcer Cleansing Rinsed/ Irrigated with Saline -Foul Odor after Cleansing No -Anesthetic Used 4% Lidocaine Solution [Edema Assessment] -Lower Limb Edema Present NA WC - Nurse 2 - General Ulcer CM Notes Start: 01/06/20 12:47 Freq: Status: Active Protocol: Activity Type Activity Date Activity User E-Sign Co-Sign Detail Recorded Client Recorded Date Recorded By Document 02/03/20 11:20 MW [id number] 02/03/20 11:29 MW 02/03/20 11:20 Wound Center Nurse 2 [Procedure/Treatment] 3. L Index finger -Time 11:23 -Correct Patient Yes -Correct Side, Site, Position Yes -Correct Procedure Yes -Procedure Performed Yes -Type of Procedure Debridement -Clinical Debridement Subcutaneous -Post Debridement Size (cm) - Length 1.3 -Post Debridement Size (cm) - Width 1.5 -Post Debridement Size (cm) - Depth 0.1 -Total Square Cm 1.95 -Wound/Ulcer Outcome Not Healed -Ulcer Cleansing Rinsed/ Irrigated with Saline -Foul Odor after Cleansing No -Bioengineered Tissue No -Bleeding Controlled with Pressure -Offloading No -Treatment Response Procedure Tolerated Well #2 left middle finger -Time 11:23 -Correct Patient Yes -Correct Side, Site, Position Yes -Correct Procedure Yes -Procedure Performed Yes -Type of Procedure Debridement -Clinical Debridement Subcutaneous -Post Debridement Size (cm) - Length 0.9 -Post Debridement Size (cm) - Width 0.8 -Post Debridement Size (cm) - Depth 0.2 -Total Square Cm 0.72 -Wound/Ulcer Outcome Not Healed -Ulcer Cleansing Rinsed/ Irrigated with Saline -Foul Odor after Cleansing No -Bioengineered Tissue Yes -Type of bioengineered Tissue EPIFIX -Expiration Date 10/06/24 -Product Lot Number [id number] -Percent Used 100 -Saline Lot Number [id number] -Bleeding Controlled with Pressure -Offloading No -Treatment Response Procedure Tolerated Well [See Physician Procedure note for Specifics] Pain Scale: 0-10 Numeric [Pain] -Is Patient Pain Free? Yes Musculoskeletal: No Muscle Wasting Neurological: Cranial nerves II-XII grossly intact Psych/Mental Status: Normal Affect Debridement Note Post-Debridement Measurements/Treatment WC - Nurse 2 - General Ulcer CM Notes Start: 01/06/20 12:47 Freq: Status: Active Protocol: Activity Type Activity Date Activity User E-Sign Co-Sign Detail Recorded Client Recorded Date Recorded By Document 01/06/20 13:11 MW [id number] 01/06/20 13:13 MW Document 01/13/20 08:47 MW [id number] 01/13/20 08:53 MW Document 01/27/20 08:39 MW [id number] 01/27/20 08:49 MW Document 02/03/20 11:20 MW [id number] 02/03/20 11:29 MW 01/06/20 01/13/20 01/27/20 13:11 08:47 08:39 Wound Center Nurse 2 3. L Index finger -Time 08:39 -Correct Patient Yes -Correct Side, Site, Position Yes -Correct Procedure Yes -Procedure Performed Yes -Type of Procedure Debridement -Clinical Debridement Subcutaneous -Post Debridement Size (cm) - Length 1.2 -Post Debridement Size (cm) - Width 1.4 -Post Debridement Size (cm) - Depth 0.1 -Total Square Cm 1.68 -Wound/Ulcer Outcome Not Healed -Ulcer Cleansing Rinsed/ Irrigated with Saline -Foul Odor after Cleansing No -Bioengineered Tissue No -Bleeding Controlled with Pressure -Offloading No -Treatment Response Procedure Tolerated Well #2 left middle finger -Time 13:11 08:48 08:40 -Correct Patient Yes Yes Yes -Correct Side, Site, Position Yes Yes Yes -Correct Procedure Yes Yes Yes -Procedure Performed Yes Yes Yes -Type of Procedure Debridement Debridement Debridement -Clinical Debridement Subcutaneous Subcutaneous Subcutaneous -Post Debridement Size (cm) - Length 1.8 1.0 0.9 -Post Debridement Size (cm) - Width 2.0 1.5 0.6 -Post Debridement Size (cm) - Depth 0.3 0.2 0.2 -Total Square Cm 3.60 1.50 0.54 -Wound/Ulcer Outcome Not Healed Not Healed Not Healed -Ulcer Cleansing Rinsed/ Rinsed/ Rinsed/ Irrigated with Irrigated with Irrigated with Saline Saline Saline -Foul Odor after Cleansing No No No -Bioengineered Tissue No No Yes -Type of bioengineered Tissue EPIFIX -Expiration Date 10/06/24 -Product Lot Number [id number] -Percent Used 100 -Saline Lot Number [id number] -Bleeding Controlled with Pressure Pressure Pressure -Offloading No No No -Treatment Response Procedure Procedure Procedure Tolerated Well Tolerated Well Tolerated Well Pain Scale: 0-10 Numeric Is Patient Pain Free? Yes Yes Yes 02/03/20 11:20 Wound Center Nurse 2 3. L Index finger -Time 11:23 -Correct Patient Yes -Correct Side, Site, Position Yes -Correct Procedure Yes -Procedure Performed Yes -Type of Procedure Debridement -Clinical Debridement Subcutaneous -Post Debridement Size (cm) - Length 1.3 -Post Debridement Size (cm) - Width 1.5 -Post Debridement Size (cm) - Depth 0.1 -Total Square Cm 1.95 -Wound/Ulcer Outcome Not Healed -Ulcer Cleansing Rinsed/ Irrigated with Saline -Foul Odor after Cleansing No -Bioengineered Tissue No -Bleeding Controlled with Pressure -Offloading No -Treatment Response Procedure Tolerated Well #2 left middle finger -Time 11:23 -Correct Patient Yes -Correct Side, Site, Position Yes -Correct Procedure Yes -Procedure Performed Yes -Type of Procedure Debridement -Clinical Debridement Subcutaneous -Post Debridement Size (cm) - Length 0.9 -Post Debridement Size (cm) - Width 0.8 -Post Debridement Size (cm) - Depth 0.2 -Total Square Cm 0.72 -Wound/Ulcer Outcome Not Healed -Ulcer Cleansing Rinsed/ Irrigated with Saline -Foul Odor after Cleansing No -Bioengineered Tissue Yes -Type of bioengineered Tissue EPIFIX -Expiration Date 10/06/24 -Product Lot Number [id number] -Percent Used 100 -Saline Lot Number [id number] -Bleeding Controlled with Pressure -Offloading No -Treatment Response Procedure Tolerated Well Pain Scale: 0-10 Numeric Is Patient Pain Free? Yes Wound debrided: Left middle finger Type of Debridement: Excisional debridement Anesthesia Used: 4% Lidocaine Solution Depth: Down to and including healthy tissue, in the subcutaneous layer Percentage of wound debrided: 100 Instrument Used: 3mm curette, #15 blade, Forceps Tissue Removed: Slough and devitalized tissue Severity: Fat Layer Exposed Amount of bleeding with debridement: Mild Bleeding Controlled with: Pressure Patient tolerated procedure well - Additional Wound Wound debrided: Left index finger Type of Debridement: Excisional debridement Anesthesia Used: 4% Lidocaine Solution Depth: Down to and including healthy tissue, in the subcutaneous layer Percentage of wound debrided: 100 Instrument Used: 3mm curette Tissue Removed: Slough and devitalized tissue Severity: Fat Layer Exposed Amount of bleeding with debridement: Mild Bleeding Controlled with: Pressure Patient tolerated procedure: Patient tolerated procedure well Assessment/Plan Active Problems (Last Reviewed 01/31/20 @ 07:54 by Josi Hickman NP-C) Third degree burn of finger of left hand excluding thumb (Chronic) Open wound of left index finger (Acute) Type 2 diabetes mellitus (Chronic) Chronic renal disease, stage V (Chronic) Assessment: Third-degree burn to left middle finger tendon exposed. Left index finger wound( Penetrating with fat layer exposed ). Peripheral arterial disease. Diabetes type II uncontrolled. Renal insufficiency and disease Plan: Debridement done as documented above. Procedure was well-tolerated. 2nd application of epifix done today using 100% of product. Moistened with saline, wound veil over top and secured with Steri-Strips. Leave on for a week. Continue increased protein intake. Call with any concerns. Follow-up in a week. This note was generated with [employer] software. It may contain incorrect words, spelling, and punctuation that were not noted in checking the note before signing.
== END 2020-02-03 23:59 ==
LOC: WC 11:00
PROVIDERS: PCP Family Medicine; Referring Provider Internal Medicine; Visit Provider Internal Medicine
DX: T23.322A Burn of third degree of single left finger (nail) except thumb, initial encounter (principal); X19.XXXA Contact with other heat and hot substances, initial encounter; Y93.G3 Activity, cooking and baking; E11.22 Type 2 diabetes mellitus with diabetic chronic kidney disease; L98.492 Non-pressure chronic ulcer of skin of other sites with fat layer exposed; N18.5 Chronic kidney disease, stage 5; I27.20 Pulmonary hypertension, unspecified; I50.9 Heart failure, unspecified; G47.33 Obstructive sleep apnea (adult) (pediatric); Z99.2 Dependence on renal dialysis; E11.51 Type 2 diabetes mellitus with diabetic peripheral angiopathy without gangrene; E11.42 Type 2 diabetes mellitus with diabetic polyneuropathy; B95.8 Unspecified staphylococcus as the cause of diseases classified elsewhere; E11.65 Type 2 diabetes mellitus with hyperglycemia
CPT/HCPCS: 11042; 15275; 99213; Q4186; G0463

== ENCOUNTER 2020-02-24 08:00 | Outpatient (RCR) | payer MEDICARE, SELFPAY ==
[2020-02-04 00:20] VITALS: BP 136/37; PULSE 59; RESP 16; TEMP 36.3
[2020-02-10 10:20] VITALS: BP 135/49; PULSE 58; RESP 22; TEMP 36.8; BMI 35.6
--- NOTE | 2020-02-10 10:50 | PCM.WC.PN ---
(1) Skin ulcer of middle finger with fat layer exposed Status: Chronic Current Visit: Yes Code(s): L98.492 - Non-pressure chronic ulcer of skin of other sites with fat layer exposed (2) Third degree burn of finger of left hand excluding thumb Status: Chronic Current Visit: Yes Qualifiers: Code(s): T23.322A - Burn of third degree of single left finger (nail) except thumb, initial encounter (3) Open wound of left index finger Status: Chronic Current Visit: Yes Code(s): S61.201A - Unspecified open wound of left index finger without damage to nail, initial encounter (4) Chronic renal disease, stage V Status: Chronic Current Visit: Yes Code(s): N18.5 - Chronic kidney disease, stage 5 (5) Chronic respiratory failure with hypoxia Status: Chronic Current Visit: Yes Code(s): J96.11 - Chronic respiratory failure with hypoxia (6) Peripheral arterial occlusive disease Status: Chronic Current Visit: Yes Code(s): I77.9 - Disorder of arteries and arterioles, unspecified (7) Presence of surgically created arteriovenous shunt for hemodialysis Status: Chronic Current Visit: Yes Code(s): Z99.2 - Dependence on renal dialysis Type of Wound Date of Service: 02/10/20 Chief Complaint: Left 3rd middle finger third-degree burn x3 weeks History of Wound: This is a 74-year-old white female who presents to the wound healing center today with her with complaint of burn to her left middle finger x3 weeks. 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 The patient states that she was cooking and due to her neuropathy, she did not notice that when she picked up a mike that she was cooking with that was still hot. She suffered a burn and followed up with her primary care who did an x-ray which showed soft tissue swelling. Cultures were done as well and earlier this week the patient was started on Keflex and doxycycline after staph aureus was shown. She denies any increase in redness or pain, her wound care has consisted of covering with antibiotic ointment and gauze. She denies a lot of drainage. She does state that her Tdap is up-to-date. Denies any other aggravating relieving factors. All other systems reviewed and negative with exception of those listed above. Progress of Wound: Has had 2 applications of epi fix. She reports increased drainage from left middle finger. - Physical Exam Vital Signs Temp Pulse Resp BP 98.2 F 58 L 22 H 135/49 H 02/10/20 10:20 02/10/20 10:20 02/10/20 10:20 02/10/20 10:20 General: Alert, Oriented x3, Cooperative, No apparent distress HEENT: Atraumatic, Normocephalic Oral: Moist Mucosa Neck: Supple Lungs: Normal air movement Extremities: No cyanosis Skin: Ulcer/ Wound Wound Measurements and Assessment WC - Nurse 1 - General Ulcer Measurement Start: 02/10/20 10:20 Freq: Status: Active Protocol: Activity Type Activity Date Activity User E-Sign Co-Sign Detail Recorded Client Recorded Date Recorded By Document 02/10/20 10:20 DL [id number] 02/10/20 10:29 DL 02/10/20 10:20 Wound Center Nurse 1 [Ulcer Assessment] 3. L Index finger -Current Size (cm) - Length 0.8 -Current Size (cm) - Width 1.1 -Current Size (cm) - Depth 0.1 -Total Square Cm 0.88 -Photo Taken No -Exudate Amt Small -Exudate Type Yellow/Green -Wound Margin Distinct, Outline Attached -Granulation Amt Small (1-33%) -Granulation Quality Red -Necrosis Amt Small (1-33%) -Necrotic Tissue Type Adherent Slough -Structure Exposed N/A -Texture (Susie-wound Skin Appearance) Localized Edema ,Scarring -Moisture (Susie-wound Skin Appearance No Abnormality ) -Color (Susie-wound Skin Appearance) Erythema -Temperature (Susie-wound Skin No Abnormality Appearance) (Pt Warm) -Tenderness on Palpation (Susie-wound No Skin Appearance) -Ulcer Cleansing Rinsed/ Irrigated with Saline -Foul Odor after Cleansing No -Anesthetic Used 4% Lidocaine Solution #2 left middle finger -Current Size (cm) - Length 1 -Current Size (cm) - Width 0.8 -Current Size (cm) - Depth 0.2 -Total Square Cm 0.8 -Photo Taken No -Exudate Amt Small -Exudate Type Yellow/Green -Wound Margin Distinct, Outline Attached -Granulation Amt Small (1-33%) -Granulation Quality [place] -Necrosis Amt Small (1-33%) -Necrotic Tissue Type Adherent Slough -Texture (Susie-wound Skin Appearance) Localized Edema ,Scarring -Moisture (Susie-wound Skin Appearance No Abnormality ) -Color (Susie-wound Skin Appearance) Rubor -Temperature (Susie-wound Skin No Abnormality Appearance) (Pt Warm) -Tenderness on Palpation (Susie-wound No Skin Appearance) -Ulcer Cleansing Wound Cleanser -Foul Odor after Cleansing No -Anesthetic Used 4% Lidocaine Solution WC - Nurse 2 - General Ulcer CM Notes Start: 02/10/20 10:20 Freq: Status: Active Protocol: Activity Type Activity Date Activity User E-Sign Co-Sign Detail Recorded Client Recorded Date Recorded By Document 02/10/20 10:42 MW [id number] 02/10/20 10:48 MW 02/10/20 10:42 Wound Center Nurse 2 [Procedure/Treatment] 3. L Index finger -Time 10:43 -Correct Patient Yes -Correct Side, Site, Position Yes -Correct Procedure Yes -Procedure Performed Yes -Type of Procedure Debridement -Clinical Debridement Subcutaneous -Post Debridement Size (cm) - Length 1.0 -Post Debridement Size (cm) - Width 1.5 -Post Debridement Size (cm) - Depth 0.1 -Total Square Cm 1.50 -Wound/Ulcer Outcome Not Healed -Ulcer Cleansing Rinsed/ Irrigated with Saline -Foul Odor after Cleansing No -Bioengineered Tissue No -Bleeding Controlled with Pressure -Offloading No -Treatment Response Procedure Tolerated Well #2 left middle finger -Time 10:44 -Correct Patient Yes -Correct Side, Site, Position Yes -Correct Procedure Yes -Procedure Performed Yes -Type of Procedure Debridement -Clinical Debridement Subcutaneous -Post Debridement Size (cm) - Length 0.8 -Post Debridement Size (cm) - Width 0.8 -Post Debridement Size (cm) - Depth 0.2 -Total Square Cm 0.64 -Wound/Ulcer Outcome Not Healed -Ulcer Cleansing Rinsed/ Irrigated with Saline -Foul Odor after Cleansing No -Bioengineered Tissue No -Bleeding Controlled with Pressure -Offloading No -Treatment Response Procedure Tolerated Well [See Physician Procedure note for Specifics] Pain Scale: 0-10 Numeric [Pain] -Is Patient Pain Free? Yes Musculoskeletal: No Muscle Wasting Neurological: Cranial nerves II-XII grossly intact Psych/Mental Status: Normal Affect Debridement Note Post-Debridement Measurements/Treatment WC - Nurse 2 - General Ulcer CM Notes Start: 02/10/20 10:20 Freq: Status: Active Protocol: Activity Type Activity Date Activity User E-Sign Co-Sign Detail Recorded Client Recorded Date Recorded By Document 02/10/20 10:42 MW [id number] 02/10/20 10:48 MW 02/10/20 10:42 Wound Center Nurse 2 3. L Index finger -Time 10:43 -Correct Patient Yes -Correct Side, Site, Position Yes -Correct Procedure Yes -Procedure Performed Yes -Type of Procedure Debridement -Clinical Debridement Subcutaneous -Post Debridement Size (cm) - Length 1.0 -Post Debridement Size (cm) - Width 1.5 -Post Debridement Size (cm) - Depth 0.1 -Total Square Cm 1.50 -Wound/Ulcer Outcome Not Healed -Ulcer Cleansing Rinsed/ Irrigated with Saline -Foul Odor after Cleansing No -Bioengineered Tissue No -Bleeding Controlled with Pressure -Offloading No -Treatment Response Procedure Tolerated Well #2 left middle finger -Time 10:44 -Correct Patient Yes -Correct Side, Site, Position Yes -Correct Procedure Yes -Procedure Performed Yes -Type of Procedure Debridement -Clinical Debridement Subcutaneous -Post Debridement Size (cm) - Length 0.8 -Post Debridement Size (cm) - Width 0.8 -Post Debridement Size (cm) - Depth 0.2 -Total Square Cm 0.64 -Wound/Ulcer Outcome Not Healed -Ulcer Cleansing Rinsed/ Irrigated with Saline -Foul Odor after Cleansing No -Bioengineered Tissue No -Bleeding Controlled with Pressure -Offloading No -Treatment Response Procedure Tolerated Well Pain Scale: 0-10 Numeric Is Patient Pain Free? Yes Wound debrided: Left middle finger Type of Debridement: Excisional debridement Anesthesia Used: 4% Lidocaine Solution Depth: Down to and including healthy tissue, in the subcutaneous layer Percentage of wound debrided: 100 Instrument Used: 3mm curette Tissue Removed: Slough and devitalized tissue Severity: Fat Layer Exposed Amount of bleeding with debridement: Mild Bleeding Controlled with: Pressure Patient tolerated procedure well - Additional Wound Wound debrided: Left index finger Type of Debridement: Excisional debridement Anesthesia Used: 4% Lidocaine Solution Depth: Down to and including healthy tissue, in the subcutaneous layer Percentage of wound debrided: 100 Instrument Used: 3mm curette Tissue Removed: Slough and devitalized tissue Severity: Fat Layer Exposed Amount of bleeding with debridement: Mild Bleeding Controlled with: Pressure Patient tolerated procedure: Patient tolerated procedure well Assessment/Plan Active Problems (Last Reviewed 01/31/20 @ 07:54 by Josi Hickman NP-C) Third degree burn of finger of left hand excluding thumb (Chronic) Skin ulcer of middle finger with fat layer exposed (Chronic) Open wound of left index finger (Chronic) 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 Left index finger wound( Penetrating with fat layer exposed ). Peripheral arterial disease. Diabetes type II uncontrolled. End-stage renal failure on dialysis. Plan: Debridement done as documented above. Procedure was well-tolerated. Patient reports increased drainage which she describes as greenish. Hold of epi fix. Cultures taken. Fibracol daily with Adaptic over top. Continue increased protein intake. Call with any concerns. Follow-up in a week. This note was generated with [employer] dictation software. It may contain incorrect words, spelling, and punctuation that were not noted in checking the note before signing. [id number]: [id number] Nikki subq tissue 20 sq cm/<
[2020-02-17 11:08] VITALS: BP 124/66; PULSE 58; RESP 22; TEMP 36.8; BMI 35.6
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
[2020-02-24 08:11] VITALS: BP 118/51; PULSE 54; RESP 18; TEMP 36.2; BMI 35.6
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
[2020-03-09 09:11] VITALS: BP 127/45; PULSE 52; RESP 18; TEMP 36.9; BMI 35.6
== END 2020-03-05 23:59 ==
LOC: WC 08:00
PROVIDERS: PCP Family Medicine; Referring Provider Internal Medicine; Visit Provider Internal Medicine
DX: L98.492 Non-pressure chronic ulcer of skin of other sites with fat layer exposed (principal); T23.322A Burn of third degree of single left finger (nail) except thumb, initial encounter; S61.201A Unspecified open wound of left index finger without damage to nail, initial encounter; T79.8XXA Other early complications of trauma, initial encounter; E11.40 Type 2 diabetes mellitus with diabetic neuropathy, unspecified; E11.22 Type 2 diabetes mellitus with diabetic chronic kidney disease; N18.6 End stage renal disease; J96.11 Chronic respiratory failure with hypoxia; Z86.73 Personal history of transient ischemic attack (TIA), and cerebral infarction without residual deficits; I05.0 Rheumatic mitral stenosis; I27.20 Pulmonary hypertension, unspecified; I50.9 Heart failure, unspecified; G47.33 Obstructive sleep apnea (adult) (pediatric); Z99.2 Dependence on renal dialysis; J44.9 Chronic obstructive pulmonary disease, unspecified; X15.8XXA Contact with other hot household appliances, initial encounter; Y93.G3 Activity, cooking and baking; Y92.000 Kitchen of unspecified non-institutional (private) residence as the place of occurrence of the external cause; Y99.8 Other external cause status
CPT/HCPCS: 11042; 15275; 87070; 87075; 87077; 87186; 87205; Q4186

== ENCOUNTER 2020-03-30 10:30 | Outpatient (RCR) | payer MEDICARE, SELFPAY ==
[2020-03-06 00:29] VITALS: BP 118/51; PULSE 54; RESP 18; TEMP 36.2
--- NOTE | 2020-03-09 11:40 | PN.PCM_ITS ---
(1) Open wound of left index finger Status: Chronic Current Visit: Yes Code(s): S61.201A - Unspecified open wound of left index finger without damage to nail, initial encounter (2) Skin ulcer of middle finger with fat layer exposed Status: Chronic Current Visit: Yes Code(s): L98.492 - Non-pressure chronic ulcer of skin of other sites with fat layer exposed (3) Third degree burn of finger of left hand excluding thumb Status: Chronic Current Visit: Yes Qualifiers: Code(s): T23.322A - Burn of third degree of single left finger (nail) except thumb, initial encounter (4) Type 2 diabetes mellitus Status: Chronic Current Visit: Yes Code(s): E11.9 - Type 2 diabetes mellitus without complications (5) Chronic renal disease, stage V Status: Chronic Current Visit: Yes Code(s): N18.5 - Chronic kidney disease, stage 5 Type of Wound Date of Service: 03/09/20 Chief Complaint: Left 3rd middle finger third-degree burn x3 weeks History of Wound: This is a 74-year-old white female who presents to the wound healing center today with her with complaint of burn to her left middle finger x3 weeks. 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 The patient states that she was cooking and due to her neuropathy, she did not notice that when she picked up a mike that she was cooking with that was still hot. She suffered a burn and followed up with her primary care who did an x-ray which showed soft tissue swelling. Cultures were done as well and earlier this week the patient was started on Keflex and doxycycline after staph aureus was shown. She denies any increase in redness or pain, her wound care has consisted of covering with antibiotic ointment and gauze. She denies a lot of drainage. She does state that her Tdap is up-to-date. Denies any other aggravating relieving factors. All other systems reviewed and negative with exception of those listed above. Progress of Wound: Left index finger is healed. some improvement in left middle finger. - Physical Exam Vital Signs Temp Pulse Resp BP 97.2 F L 54 L 18 118/51 L 03/06/20 00:29 03/06/20 00:29 03/06/20 00:29 03/06/20 00:29 General: Alert, Oriented x3, Cooperative, No apparent distress HEENT: Atraumatic, Normocephalic Oral: Moist Mucosa Neck: Supple Lungs: Normal air movement Abdomen: Non Tender, Obese Extremities: No cyanosis Skin: Ulcer/ Wound Wound Measurements and Assessment WC - Nurse 2 - General Ulcer CM Notes Start: 03/09/20 09:26 Freq: Status: Active Protocol: Activity Type Activity Date Activity User E-Sign Co-Sign Detail Recorded Client Recorded Date Recorded By Document 03/09/20 09:26 MW [id number] 03/09/20 09:34 MW 03/09/20 09:26 Wound Center Nurse 2 [Procedure/Treatment] #2 left middle finger -Time 09:26 -Correct Patient Yes -Correct Side, Site, Position Yes -Correct Procedure Yes -Procedure Performed Yes -Type of Procedure Debridement -Clinical Debridement Subcutaneous -Post Debridement Size (cm) - Length 0.5 -Post Debridement Size (cm) - Width 0.5 -Post Debridement Size (cm) - Depth 0.2 -Total Square Cm 0.25 -Wound/Ulcer Outcome Not Healed -Ulcer Cleansing Rinsed/ Irrigated with Saline -Foul Odor after Cleansing No -Type of bioengineered Tissue EPIFIX -Expiration Date 12/04/24 -Product Lot Number [id number] -Percent Used 100 -Saline Lot Number [id number] -Bleeding Controlled with Pressure -Other undermining @2, 0.6cm, @8, 0. 2cm -Offloading No -Treatment Response Procedure Tolerated Well [See Physician Procedure note for Specifics] Pain Scale: 0-10 Numeric [Pain] -Is Patient Pain Free? Yes Musculoskeletal: No Muscle Wasting Neurological: Cranial nerves II-XII grossly intact Psych/Mental Status: Normal Affect Debridement Note Post-Debridement Measurements/Treatment WC - Nurse 2 - General Ulcer CM Notes Start: 03/09/20 09:26 Freq: Status: Active Protocol: Activity Type Activity Date Activity User E-Sign Co-Sign Detail Recorded Client Recorded Date Recorded By Document 03/09/20 09:26 MW [id number] 03/09/20 09:34 MW 03/09/20 09:26 Wound Center Nurse 2 #2 left middle finger -Time 09:26 -Correct Patient Yes -Correct Side, Site, Position Yes -Correct Procedure Yes -Procedure Performed Yes -Type of Procedure Debridement -Clinical Debridement Subcutaneous -Post Debridement Size (cm) - Length 0.5 -Post Debridement Size (cm) - Width 0.5 -Post Debridement Size (cm) - Depth 0.2 -Total Square Cm 0.25 -Wound/Ulcer Outcome Not Healed -Ulcer Cleansing Rinsed/ Irrigated with Saline -Foul Odor after Cleansing No -Type of bioengineered Tissue EPIFIX -Expiration Date 12/04/24 -Product Lot Number [id number] -Percent Used 100 -Saline Lot Number [id number] -Bleeding Controlled with Pressure -Other undermining @2, 0.6cm, @8, 0. 2cm -Offloading No -Treatment Response Procedure Tolerated Well Pain Scale: 0-10 Numeric Is Patient Pain Free? Yes Wound debrided: left Middle finger Type of Debridement: Excisional debridement Anesthesia Used: 4% Lidocaine Solution Depth: Down to and including healthy tissue, in the subcutaneous layer Percentage of wound debrided: 100 Instrument Used: 3mm curette Tissue Removed: Slough and devitalized tissue Severity: Fat Layer Exposed Amount of bleeding with debridement: Mild Bleeding Controlled with: Pressure Patient tolerated procedure well Assessment/Plan Active Problems (Last Reviewed 01/31/20 @ 07:54 by Josi Hickman NP-C) Third degree burn of finger of left hand excluding thumb (Chronic) Skin ulcer of middle finger with fat layer exposed (Chronic) Open wound of left index finger (Chronic) Type 2 diabetes mellitus (Chronic) Chronic renal disease, stage V (Chronic) Assessment: Third-degree burn to left middle finger tendon exposed. Left index finger wound( Penetrating with fat layer exposed ) - Healed. Peripheral arterial disease. Diabetes type II uncontrolled. End-stage renal failure on dialysis. Plan: Debridement done as documented above. Procedure was well tolerated. Index finger is healed and middle finger with minimal improvement. EpiFix applied to left middle finger using 100% of product. Wound veil over top and secured with Steri-Strips. Continue increased protein intake. Call with any concerns. Follow-up in 1 week. This note was generated with [employer] software. It may contain incorrect words, spelling, and punctuation that were not noted in checking the note before signing. [id number]: [id number] Skin sub graft trnk/arm/leg
[2020-03-16 09:34] VITALS: BP 137/51; PULSE 52; RESP 18; TEMP 36.6; BMI 35.6
--- NOTE | 2020-03-16 14:00 | PN.PCM_ITS ---
(1) Open wound of left index finger Status: Chronic Current Visit: Yes Code(s): S61.201A - Unspecified open wound of left index finger without damage to nail, initial encounter (2) Skin ulcer of middle finger with fat layer exposed Status: Chronic Current Visit: Yes Code(s): L98.492 - Non-pressure chronic ulcer of skin of other sites with fat layer exposed (3) Third degree burn of finger of left hand excluding thumb Status: Chronic Current Visit: Yes Qualifiers: Code(s): T23.322A - Burn of third degree of single left finger (nail) except thumb, initial encounter (4) Type 2 diabetes mellitus Status: Chronic Current Visit: Yes Code(s): E11.9 - Type 2 diabetes mellitus without complications (5) Chronic renal disease, stage V Status: Chronic Current Visit: Yes Code(s): N18.5 - Chronic kidney disease, stage 5 Type of Wound Date of Service: 03/16/20 Chief Complaint: Left 3rd middle finger third-degree burn x3 weeks History of Wound: This is a 74-year-old white female who presents to the wound healing center today with her with complaint of burn to her left middle finger x3 weeks. 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 The patient states that she was cooking and due to her neuropathy, she did not notice that when she picked up a mike that she was cooking with that was still hot. She suffered a burn and followed up with her primary care who did an x-ray which showed soft tissue swelling. Cultures were done as well and earlier this week the patient was started on Keflex and doxycycline after staph aureus was shown. She denies any increase in redness or pain, her wound care has consisted of covering with antibiotic ointment and gauze. She denies a lot of drainage. She does state that her Tdap is up-to-date. Denies any other aggravating relieving factors. All other systems reviewed and negative with exception of those listed above. Progress of Wound: Left index finger stays healed. No improvement in left middle finger. - Physical Exam Vital Signs Temp Pulse Resp BP 97.8 F 52 L 18 137/51 H 03/16/20 09:34 03/16/20 09:34 03/16/20 09:34 03/16/20 09:34 General: Alert, Oriented x3, Cooperative, No apparent distress HEENT: Atraumatic, Normocephalic Oral: Moist Mucosa Neck: Supple Lungs: Normal air movement Extremities: No cyanosis Skin: Ulcer/ Wound Wound Measurements and Assessment WC - Nurse 1 - General Ulcer Measurement Start: 03/09/20 09:26 Freq: Status: Active Protocol: Activity Type Activity Date Activity User E-Sign Co-Sign Detail Recorded Client Recorded Date Recorded By Document 03/16/20 09:34 RB [id number] 03/16/20 09:43 RB 03/16/20 09:34 Wound Center Nurse 1 [Ulcer Assessment] 3. L Index finger -Combined with other wound No -Current Size (cm) - Length 0.1 -Current Size (cm) - Width 0.1 -Current Size (cm) - Depth 0.1 -Total Square Cm 0.01 -Tunneling No -Undermining/Tunneling No -Circular Undermining No -Exudate Amt Small -Exudate Type Serosanguineous -Wound Margin Flat & Intact -Granulation Amt Large (67-100%) -Granulation Quality [place] -Slough/Fibrin Yes -Necrosis Amt None Present (0 %) -Necrotic Tissue Type Adherent Slough -Structure Exposed N/A -Texture (Susie-wound Skin Appearance) Assessed -Moisture (Susie-wound Skin Appearance Assessed ) -Color (Susie-wound Skin Appearance) Assessed -Temperature (Susie-wound Skin No Abnormality Appearance) (Pt Warm) -Tenderness on Palpation (Susie-wound No Skin Appearance) -Ulcer Cleansing Wound Cleanser -Foul Odor after Cleansing No -Anesthetic Used 5% Lidocaine Gel #2 left middle finger -Combined with other wound No -Current Size (cm) - Length 0.7 -Current Size (cm) - Width 0.6 -Current Size (cm) - Depth 0.2 -Total Square Cm 0.42 -Tunneling No -Undermining/Tunneling No -Circular Undermining No -Exudate Amt Small -Exudate Type Serosanguineous -Wound Margin Thickened & Rolled Under -Granulation Amt Medium (34-66%) -Granulation Quality [place] -Slough/Fibrin Yes -Necrosis Amt Small (1-33%) -Necrotic Tissue Type Adherent Slough -Structure Exposed N/A -Texture (Susie-wound Skin Appearance) Assessed -Moisture (Susie-wound Skin Appearance Assessed ) -Color (Susie-wound Skin Appearance) Assessed -Temperature (Susie-wound Skin No Abnormality Appearance) (Pt Warm) -Tenderness on Palpation (Susie-wound No Skin Appearance) -Ulcer Cleansing Wound Cleanser -Foul Odor after Cleansing No -Anesthetic Used 5% Lidocaine Gel WC - Nurse 2 - General Ulcer CM Notes Start: 03/09/20 09:26 Freq: Status: Active Protocol: Activity Type Activity Date Activity User E-Sign Co-Sign Detail Recorded Client Recorded Date Recorded By Document 03/16/20 10:03 MW [id number] 03/16/20 10:10 MW 03/16/20 10:03 Wound Center Nurse 2 [Procedure/Treatment] 3. L Index finger -Time 10:03 -Correct Patient Yes -Correct Side, Site, Position Yes -Correct Procedure Yes -Procedure Performed No -Post Debridement Size (cm) - Length 0 -Post Debridement Size (cm) - Width 0 -Post Debridement Size (cm) - Depth 0 -Total Square Cm 0 -Wound/Ulcer Outcome Healed- Epithelialized #2 left middle finger -Time 10:04 -Correct Patient Yes -Correct Side, Site, Position Yes -Correct Procedure Yes -Procedure Performed Yes -Type of Procedure Debridement -Clinical Debridement Subcutaneous -Post Debridement Size (cm) - Length 0.6 -Post Debridement Size (cm) - Width 0.6 -Post Debridement Size (cm) - Depth 0.2 -Total Square Cm 0.36 -Wound/Ulcer Outcome Not Healed -Ulcer Cleansing Rinsed/ Irrigated with Saline -Foul Odor after Cleansing No -Bioengineered Tissue Yes -Type of bioengineered Tissue EPIFIX -Expiration Date 12/04/24 -Product Lot Number [id number] -Percent Used 100 -Saline Lot Number [id number] -Bleeding Controlled with Pressure -Other undermining @2, 0.5cm -Offloading No -Treatment Response Procedure Tolerated Well [See Physician Procedure note for Specifics] Pain Scale: 0-10 Numeric [Pain] -Is Patient Pain Free? Yes Musculoskeletal: No Muscle Wasting Neurological: Cranial nerves II-XII grossly intact Psych/Mental Status: Normal Affect Debridement Note Post-Debridement Measurements/Treatment WC - Nurse 2 - General Ulcer CM Notes Start: 06/04/20 09:26 Freq: Status: Active Protocol: Activity Type Activity Date Activity User E-Sign Co-Sign Detail Recorded Client Recorded Date Recorded By Document 03/09/20 09:26 MW [id number] 03/09/20 09:34 MW Document 03/16/20 10:03 MW [id number] 03/16/20 10:10 MW 03/09/20 03/16/20 09:26 10:03 Wound Center Nurse 2 3. L Index finger -Time 10:03 -Correct Patient Yes -Correct Side, Site, Position Yes -Correct Procedure Yes -Procedure Performed No -Post Debridement Size (cm) - Length 0 -Post Debridement Size (cm) - Width 0 -Post Debridement Size (cm) - Depth 0 -Total Square Cm 0 -Wound/Ulcer Outcome Healed- Epithelialized #2 left middle finger -Time 09:26 10:04 -Correct Patient Yes Yes -Correct Side, Site, Position Yes Yes -Correct Procedure Yes Yes -Procedure Performed Yes Yes -Type of Procedure Debridement Debridement -Clinical Debridement Subcutaneous Subcutaneous -Post Debridement Size (cm) - Length 0.5 0.6 -Post Debridement Size (cm) - Width 0.5 0.6 -Post Debridement Size (cm) - Depth 0.2 0.2 -Total Square Cm 0.25 0.36 -Wound/Ulcer Outcome Not Healed Not Healed -Ulcer Cleansing Rinsed/ Rinsed/ Irrigated with Irrigated with Saline Saline -Foul Odor after Cleansing No No -Bioengineered Tissue Yes -Type of bioengineered Tissue EPIFIX EPIFIX -Expiration Date 12/04/24 12/04/24 -Product Lot Number [id number] -Percent Used 100 100 -Saline Lot Number [id number] -Bleeding Controlled with Pressure Pressure -Other undermining @2, undermining @2, 0.6cm, @8, 0. 0.5cm 2cm -Offloading No No -Treatment Response Procedure Procedure Tolerated Well Tolerated Well Pain Scale: 0-10 Numeric Is Patient Pain Free? Yes Yes Wound debrided: Left middle finger Type of Debridement: Excisional debridement Anesthesia Used: 4% Lidocaine Solution Depth: Down to and including healthy tissue, in the subcutaneous layer Percentage of wound debrided: 100 Instrument Used: 3mm curette Tissue Removed: SLough and devitalized tissue Severity: Fat Layer Exposed Amount of bleeding with debridement: Mild Bleeding Controlled with: Pressure Patient tolerated procedure well Assessment/Plan Active Problems (Last Reviewed 01/31/20 @ 07:54 by Josi Hickman NP-C) Third degree burn of finger of left hand excluding thumb (Chronic) Skin ulcer of middle finger with fat layer exposed (Chronic) Open wound of left index finger (Chronic) Type 2 diabetes mellitus (Chronic) Chronic renal disease, stage V (Chronic) Assessment: Third-degree burn to left middle finger tendon exposed. Left index finger wound( Penetrating with fat layer exposed ) - Healed. Peripheral arterial disease. Diabetes type II uncontrolled. End-stage renal failure on dialysis. Plan: Debridement done as documented above. Procedure was well tolerated. No significant change of the middle finger. EpiFix applied to left middle finger using 100% of product. Wound veil over top and secured with Steri-Strips. Continue increased protein intake. Call with any concerns. Follow-up in 1 week. This note was generated with [employer] dictation software. It may contain incorrect words, spelling, and punctuation that were not noted in checking the note before signing. [id number]: [id number] Skin sub graft trnk/arm/leg
[2020-03-23 08:05] VITALS: BP 104/44; PULSE 54; RESP 18; TEMP 36.6; BMI 35.6
--- NOTE | 2020-03-23 09:34 | PCM.WC.PN ---
(1) Open wound of left index finger Status: Chronic Current Visit: Yes Code(s): S61.201A - Unspecified open wound of left index finger without damage to nail, initial encounter (2) Skin ulcer of middle finger with fat layer exposed Status: Chronic Current Visit: Yes Code(s): L98.492 - Non-pressure chronic ulcer of skin of other sites with fat layer exposed (3) Third degree burn of finger of left hand excluding thumb Status: Chronic Current Visit: Yes Qualifiers: Code(s): T23.322A - Burn of third degree of single left finger (nail) except thumb, initial encounter (4) Type 2 diabetes mellitus Status: Chronic Current Visit: Yes Code(s): E11.9 - Type 2 diabetes mellitus without complications (5) Chronic renal disease, stage V Status: Chronic Current Visit: Yes Code(s): N18.5 - Chronic kidney disease, stage 5 Type of Wound Date of Service: 03/23/20 Chief Complaint: Left 3rd middle finger third-degree burn x3 weeks History of Wound: This is a 74-year-old white female who presents to the wound healing center today with her with complaint of burn to her left middle finger x3 weeks. 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 The patient states that she was cooking and due to her neuropathy, she did not notice that when she picked up a mike that she was cooking with that was still hot. She suffered a burn and followed up with her primary care who did an x-ray which showed soft tissue swelling. Cultures were done as well and earlier this week the patient was started on Keflex and doxycycline after staph aureus was shown. She denies any increase in redness or pain, her wound care has consisted of covering with antibiotic ointment and gauze. She denies a lot of drainage. She does state that her Tdap is up-to-date. Denies any other aggravating relieving factors. All other systems reviewed and negative with exception of those listed above. Progress of Wound: No new concerns at this time. Slowly improving. Has had 5 applications of epi fix so far. - Physical Exam Vital Signs Temp Pulse Resp BP 97.8 F 54 L 18 104/44 L 03/23/20 08:05 03/23/20 08:05 03/23/20 08:05 03/23/20 08:05 General: Alert, Oriented x3, Cooperative, No apparent distress HEENT: Atraumatic, Normocephalic Oral: Moist Mucosa Neck: Supple Lungs: Normal air movement Extremities: No cyanosis Skin: Ulcer/ Wound Wound Measurements and Assessment IVANA - Nurse 1 - General Ulcer Measurement Start: 03/09/20 09:26 Freq: Status: Active Protocol: Activity Type Activity Date Activity User E-Sign Co-Sign Detail Recorded Client Recorded Date Recorded By Document 03/23/20 08:05 DL [id number] 03/23/20 08:11 DL 03/23/20 08:05 Wound Center Nurse 1 [Ulcer Assessment] #2 left middle finger -Current Size (cm) - Length 0.4 -Current Size (cm) - Width 0.4 -Current Size (cm) - Depth 0.1 -Total Square Cm 0.16 -Photo Taken No -Exudate Amt Small -Exudate Type Serosanguineous -Wound Margin Distinct, Outline Attached -Granulation Amt Large (67-100%) -Granulation Quality [place] -Necrosis Amt Small (1-33%) -Necrotic Tissue Type Adherent Slough -Structure Exposed N/A -Texture (Susie-wound Skin Appearance) Scarring -Moisture (Susie-wound Skin Appearance Dry/Scaly ) -Color (Susie-wound Skin Appearance) Rubor -Temperature (Susie-wound Skin No Abnormality Appearance) (Pt Warm) -Tenderness on Palpation (Susie-wound No Skin Appearance) -Ulcer Cleansing Wound Cleanser -Foul Odor after Cleansing No -Anesthetic Used 4% Lidocaine Solution WC - Nurse 2 - General Ulcer CM Notes Start: 03/09/20 09:26 Freq: Status: Active Protocol: Activity Type Activity Date Activity User E-Sign Co-Sign Detail Recorded Client Recorded Date Recorded By Document 03/23/20 09:32 PL [id number] 03/23/20 09:33 PL 03/23/20 09:32 Wound Center Nurse 2 [Procedure/Treatment] -Time 08:19 -Correct Patient Yes -Correct Side, Site, Position Yes -Correct Procedure Yes -Procedure Performed Yes -Type of Procedure Debridement -Clinical Debridement Subcutaneous -Post Debridement Size (cm) - Length 0.5 -Post Debridement Size (cm) - Width 0.6 -Post Debridement Size (cm) - Depth 0.1 -Total Square Cm 0.30 -Wound/Ulcer Outcome Not Healed -Ulcer Cleansing Rinsed/ Irrigated with Saline -Foul Odor after Cleansing No -Type of bioengineered Tissue EPIFIX -Expiration Date 12/04/24 -Product Lot Number [id number] -Percent Used 100 -Saline Lot Number [id number] -Treatment Response Procedure Tolerated Well [See Physician Procedure note for Specifics] Pain Scale: 0-10 Numeric [Pain] -Is Patient Pain Free? Yes Musculoskeletal: No Muscle Wasting Neurological: Cranial nerves II-XII grossly intact Psych/Mental Status: Normal Affect Debridement Note Post-Debridement Measurements/Treatment WC - Nurse 2 - General Ulcer CM Notes Start: 03/09/20 09:26 Freq: Status: Active Protocol: Activity Type Activity Date Activity User E-Sign Co-Sign Detail Recorded Client Recorded Date Recorded By Document 03/09/20 09:26 MW [id number] 03/09/20 09:34 MW Document 03/16/20 10:03 MW [id number] 03/16/20 10:10 MW Document 03/23/20 09:32 PL [id number] 03/23/20 09:33 PL 03/09/20 03/16/20 03/23/20 09:26 10:03 09:32 Wound Center Nurse 2 3. L Index finger -Time 10:03 -Correct Patient Yes -Correct Side, Site, Position Yes -Correct Procedure Yes -Procedure Performed No -Post Debridement Size (cm) - Length 0 -Post Debridement Size (cm) - Width 0 -Post Debridement Size (cm) - Depth 0 -Total Square Cm 0 -Wound/Ulcer Outcome Healed- Epithelialized #2 left middle finger -Time 09:26 10:04 08:19 -Correct Patient Yes Yes Yes -Correct Side, Site, Position Yes Yes Yes -Correct Procedure Yes Yes Yes -Procedure Performed Yes Yes Yes -Type of Procedure Debridement Debridement Debridement -Clinical Debridement Subcutaneous Subcutaneous Subcutaneous -Post Debridement Size (cm) - Length 0.5 0.6 0.5 -Post Debridement Size (cm) - Width 0.5 0.6 0.6 -Post Debridement Size (cm) - Depth 0.2 0.2 0.1 -Total Square Cm 0.25 0.36 0.30 -Wound/Ulcer Outcome Not Healed Not Healed Not Healed -Ulcer Cleansing Rinsed/ Rinsed/ Rinsed/ Irrigated with Irrigated with Irrigated with Saline Saline Saline -Foul Odor after Cleansing No No No -Bioengineered Tissue Yes -Type of bioengineered Tissue EPIFIX EPIFIX EPIFIX -Expiration Date 12/04/24 12/04/24 12/04/24 -Product Lot Number [id number] -Percent Used 100 100 100 -Saline Lot Number [id number] -Bleeding Controlled with Pressure Pressure -Other undermining @2, undermining @2, 0.6cm, @8, 0. 0.5cm 2cm -Offloading No No -Treatment Response Procedure Procedure Procedure Tolerated Well Tolerated Well Tolerated Well Pain Scale: 0-10 Numeric Is Patient Pain Free? Yes Yes Yes Wound debrided: Left middle finger Type of Debridement: Excisional debridement Anesthesia Used: 4% Lidocaine Solution Depth: Down to and including healthy tissue, in the subcutaneous layer Percentage of wound debrided: 100 Instrument Used: 3mm curette Tissue Removed: Slough and devitalized tissue Severity: Fat Layer Exposed Amount of bleeding with debridement: Mild Bleeding Controlled with: Pressure Patient tolerated procedure well Assessment/Plan Active Problems (Last Reviewed 01/31/20 @ 07:54 by Josi Hickman NP-C) Third degree burn of finger of left hand excluding thumb (Chronic) Skin ulcer of middle finger with fat layer exposed (Chronic) Open wound of left index finger (Chronic) Type 2 diabetes mellitus (Chronic) Chronic renal disease, stage V (Chronic) Assessment: Third-degree burn to left middle finger tendon exposed. Left index finger wound( Penetrating with fat layer exposed ) - Healed. Peripheral arterial disease. Diabetes type II uncontrolled. End-stage renal failure on dialysis. Plan: Debridement done as documented above. Procedure was well tolerated. Modest improvement. 6th EpiFix applied to left middle finger using 100% of product. Moistened with saline. Wound veil over top and secured with Steri-Strips. Continue increased protein intake. Call with any concerns. Follow-up in 1 week. This note was generated with [employer] software. It may contain incorrect words, spelling, and punctuation that were not noted in checking the note before signing. [id number]: [id number] Skin sub graft trnk/arm/leg
[2020-03-30 10:19] VITALS: BP 102/41; PULSE 51; RESP 18; TEMP 36.2; O2SAT 3; BMI 35.6
--- NOTE | 2020-03-30 13:00 | PN.PCM_ITS ---
(1) Open wound of left index finger Status: Chronic Current Visit: Yes Code(s): S61.201A - Unspecified open wound of left index finger without damage to nail, initial encounter (2) Skin ulcer of middle finger with fat layer exposed Status: Chronic Current Visit: Yes Code(s): L98.492 - Non-pressure chronic ulcer of skin of other sites with fat layer exposed (3) Third degree burn of finger of left hand excluding thumb Status: Chronic Current Visit: Yes Qualifiers: Code(s): T23.322A - Burn of third degree of single left finger (nail) except thumb, initial encounter (4) Type 2 diabetes mellitus Status: Chronic Current Visit: Yes Code(s): E11.9 - Type 2 diabetes mellitus without complications (5) Chronic renal disease, stage V Status: Chronic Current Visit: Yes Code(s): N18.5 - Chronic kidney disease, stage 5 Type of Wound Date of Service: 03/30/20 Chief Complaint: Left 3rd middle finger third-degree burn x3 weeks History of Wound: This is a 74-year-old white female who presents to the wound healing center today with her with complaint of burn to her left middle finger x3 weeks. 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 The patient states that she was cooking and due to her neuropathy, she did not notice that when she picked up a mike that she was cooking with that was still hot. She suffered a burn and followed up with her primary care who did an x-ray which showed soft tissue swelling. Cultures were done as well and earlier this week the patient was started on Keflex and doxycycline after staph aureus was shown. She denies any increase in redness or pain, her wound care has consisted of covering with antibiotic ointment and gauze. She denies a lot of drainage. She does state that her Tdap is up-to-date. Denies any other aggravating relieving factors. All other systems reviewed and negative with exception of those listed above. Progress of Wound: No new concerns. Has had 6 applications of Epifix so far. - Physical Exam Vital Signs Temp Pulse Resp BP Pulse Ox 97.2 F L 51 L 18 102/41 L 3 03/30/20 10:19 03/30/20 10:19 03/30/20 10:19 03/30/20 10:19 03/30/20 10:19 General: Alert, Oriented x3, Cooperative, No apparent distress HEENT: Atraumatic, Normocephalic Oral: Moist Mucosa Neck: Supple Lungs: Normal air movement Extremities: No cyanosis Skin: Ulcer/ Wound Wound Measurements and Assessment - Nurse 1 - General Ulcer Measurement Start: 03/09/20 09:26 Freq: Status: Active Protocol: Activity Type Activity Date Activity User E-Sign Co-Sign Detail Recorded Client Recorded Date Recorded By Document 03/30/20 10:19 [facility] [id number] 03/30/20 10:26 [facility] 03/30/20 10:19 Wound Center Nurse 1 [Ulcer Assessment] #2 left middle finger -Combined with other wound No -Current Size (cm) - Length 0.5 -Current Size (cm) - Width 0.8 -Current Size (cm) - Depth 0.3 -Total Square Cm 0.40 -Photo Taken No -Epithelialization None Present -Tunneling No -Undermining/Tunneling No -Circular Undermining No -Exudate Amt Small -Exudate Type Serosanguineous -Wound Margin Distinct, Outline Attached -Granulation Amt Small (1-33%) -Granulation Quality [place] -Slough/Fibrin Yes -Necrosis Amt Medium (34-66%) -Necrotic Tissue Type Adherent Slough -Texture (Susie-wound Skin Appearance) Assessed, Localized Edema ,Scarring -Moisture (Susie-wound Skin Appearance Assessed ) -Color (Susie-wound Skin Appearance) Assessed, Erythema -Temperature (Susie-wound Skin No Abnormality Appearance) (Pt Warm) -Tenderness on Palpation (Susie-wound No Skin Appearance) -Ulcer Cleansing Rinsed/ Irrigated with Saline -Foul Odor after Cleansing No -Anesthetic Used 5% Lidocaine Gel WC - Nurse 2 - General Ulcer CM Notes Start: 03/09/20 09:26 Freq: Status: Active Protocol: Activity Type Activity Date Activity User E-Sign Co-Sign Detail Recorded Client Recorded Date Recorded By Document 03/30/20 10:45 DV [id number] 03/30/20 10:49 DV 03/30/20 10:45 Wound Center Nurse 2 [Procedure/Treatment] -Time 10:46 -Correct Patient Yes -Correct Side, Site, Position Yes -Correct Procedure Yes -Procedure Performed Yes -Type of Procedure Debridement -Clinical Debridement Subcutaneous -Post Debridement Size (cm) - Length 0.4 -Post Debridement Size (cm) - Width 0.6 -Post Debridement Size (cm) - Depth 0.2 -Total Square Cm 0.24 -Wound/Ulcer Outcome Not Healed -Ulcer Cleansing Rinsed/ Irrigated with Saline -Foul Odor after Cleansing No -Bioengineered Tissue Yes -Type of bioengineered Tissue EPIFIX -Expiration Date 12/04/24 -Product Lot Number [id number] -Percent Used 100 -Saline Lot Number [id number] -Bleeding Controlled with Pressure -Offloading No -Treatment Response Procedure Tolerated Well [See Physician Procedure note for Specifics] Pain Scale: 0-10 Numeric [Pain] -Is Patient Pain Free? Yes Musculoskeletal: No Muscle Wasting Neurological: Cranial nerves II-XII grossly intact Psych/Mental Status: Normal Affect Debridement Note Post-Debridement Measurements/Treatment WC - Nurse 2 - General Ulcer CM Notes Start: 03/09/20 09:26 Freq: Status: Active Protocol: Activity Type Activity Date Activity User E-Sign Co-Sign Detail Recorded Client Recorded Date Recorded By Document 03/09/20 09:26 MW [id number] 03/09/20 09:34 MW Document 03/16/20 10:03 MW [id number] 03/16/20 10:10 MW Document 03/23/20 09:32 PL [email or web address] 03/23/20 09:33 PL Document 03/30/20 10:45 DV [id number] 03/30/20 10:49 DV 03/09/20 03/16/20 03/23/20 09:26 10:03 09:32 Wound Center Nurse 2 3. L Index finger -Time 10:03 -Correct Patient Yes -Correct Side, Site, Position Yes -Correct Procedure Yes -Procedure Performed No -Post Debridement Size (cm) - Length 0 -Post Debridement Size (cm) - Width 0 -Post Debridement Size (cm) - Depth 0 -Total Square Cm 0 -Wound/Ulcer Outcome Healed- Epithelialized #2 left middle finger -Time 09:26 10:04 08:19 -Correct Patient Yes Yes Yes -Correct Side, Site, Position Yes Yes Yes -Correct Procedure Yes Yes Yes -Procedure Performed Yes Yes Yes -Type of Procedure Debridement Debridement Debridement -Clinical Debridement Subcutaneous Subcutaneous Subcutaneous -Post Debridement Size (cm) - Length 0.5 0.6 0.5 -Post Debridement Size (cm) - Width 0.5 0.6 0.6 -Post Debridement Size (cm) - Depth 0.2 0.2 0.1 -Total Square Cm 0.25 0.36 0.30 -Wound/Ulcer Outcome Not Healed Not Healed Not Healed -Ulcer Cleansing Rinsed/ Rinsed/ Rinsed/ Irrigated with Irrigated with Irrigated with Saline Saline Saline -Foul Odor after Cleansing No No No -Bioengineered Tissue Yes -Type of bioengineered Tissue EPIFIX EPIFIX EPIFIX -Expiration Date 12/04/24 12/04/24 12/04/24 -Product Lot Number [id number] -Percent Used 100 100 100 -Saline Lot Number [id number] -Bleeding Controlled with Pressure Pressure -Other undermining @2, undermining @2, 0.6cm, @8, 0. 0.5cm 2cm -Offloading No No -Treatment Response Procedure Procedure Procedure Tolerated Well Tolerated Well Tolerated Well Pain Scale: 0-10 Numeric Is Patient Pain Free? Yes Yes Yes 03/30/20 10:45 Wound Center Nurse 2 3. L Index finger -Time -Correct Patient -Correct Side, Site, Position -Correct Procedure -Procedure Performed -Post Debridement Size (cm) - Length -Post Debridement Size (cm) - Width -Post Debridement Size (cm) - Depth -Total Square Cm -Wound/Ulcer Outcome #2 left middle finger -Time 10:46 -Correct Patient Yes -Correct Side, Site, Position Yes -Correct Procedure Yes -Procedure Performed Yes -Type of Procedure Debridement -Clinical Debridement Subcutaneous -Post Debridement Size (cm) - Length 0.4 -Post Debridement Size (cm) - Width 0.6 -Post Debridement Size (cm) - Depth 0.2 -Total Square Cm 0.24 -Wound/Ulcer Outcome Not Healed -Ulcer Cleansing Rinsed/ Irrigated with Saline -Foul Odor after Cleansing No -Bioengineered Tissue Yes -Type of bioengineered Tissue EPIFIX -Expiration Date 12/04/24 -Product Lot Number [id number] -Percent Used 100 -Saline Lot Number [id number] -Bleeding Controlled with Pressure -Other -Offloading No -Treatment Response Procedure Tolerated Well Pain Scale: 0-10 Numeric Is Patient Pain Free? Yes Wound debrided: Left Middle Finger Type of Debridement: Excisional debridement Anesthesia Used: 4% Lidocaine Solution Depth: Down to and including healthy tissue, in the subcutaneous layer Percentage of wound debrided: 100 Instrument Used: 3mm curette Tissue Removed: Slough and Devitalized Tissue Severity: Fat Layer Exposed Amount of bleeding with debridement: Mild Bleeding Controlled with: Pressure Patient tolerated procedure well Assessment/Plan Active Problems (Last Reviewed 01/31/20 @ 07:54 by Josi Hickman, [employer]-C) Third degree burn of finger of left hand excluding thumb (Chronic) Skin ulcer of middle finger with fat layer exposed (Chronic) Open wound of left index finger (Chronic) Type 2 diabetes mellitus (Chronic) Chronic renal disease, stage V (Chronic) Assessment: Third-degree burn to left middle finger tendon exposed. Left index finger wound( Penetrating with fat layer exposed ) - Healed. Peripheral arterial disease. Diabetes type II uncontrolled. End-stage renal failure on dialysis. Plan: Debridement done as documented above. Procedure was well tolerated. Modest improvement. 7th EpiFix applied to left middle finger using 100% of product. Moistened with saline. Wound veil over top and secured with Steri- Strips. Continue increased protein intake. Call with any concerns. Follow-up in 1 week. This note was generated with [employer] software. It may contain incorrect words, spelling, and punctuation that were not noted in checking the note before signing. [id number]: [id number] Skin sub graft trnk/arm/leg
== END 2020-04-04 23:59 ==
LOC: WC 10:30
PROVIDERS: PCP Family Medicine; Referring Provider Internal Medicine; Visit Provider Internal Medicine
DX: L98.492 Non-pressure chronic ulcer of skin of other sites with fat layer exposed (principal); T23.322A Burn of third degree of single left finger (nail) except thumb, initial encounter; S61.201A Unspecified open wound of left index finger without damage to nail, initial encounter; T79.8XXA Other early complications of trauma, initial encounter; E11.22 Type 2 diabetes mellitus with diabetic chronic kidney disease; N18.6 End stage renal disease; J96.11 Chronic respiratory failure with hypoxia; Z86.73 Personal history of transient ischemic attack (TIA), and cerebral infarction without residual deficits; I05.0 Rheumatic mitral stenosis; I27.20 Pulmonary hypertension, unspecified; G47.33 Obstructive sleep apnea (adult) (pediatric); Z99.2 Dependence on renal dialysis; J44.9 Chronic obstructive pulmonary disease, unspecified; E11.51 Type 2 diabetes mellitus with diabetic peripheral angiopathy without gangrene; E11.42 Type 2 diabetes mellitus with diabetic polyneuropathy
CPT/HCPCS: 15271; 15275; Q4186

== ENCOUNTER → 2020-04-12 09:36 | Outpatient (CLI) | payer MEDICARE, SELFPAY ==
[2020-04-06 08:05] VITALS: BMI 35.6
[2020-04-12 09:00] VITALS: BMI 34.1
== END ==
PROVIDERS: PCP Family Medicine; Referring Provider Nurse Practitioner Family; Visit Provider Nurse Practitioner Family
DX: R69 Illness, unspecified (principal)

== ENCOUNTER 2020-04-12 10:12 | Inpatient (IN) | payer MEDICARE, SELFPAY ==
[2020-04-12] VITALS (15 sets, daily range): BP systolic 94–115; BP diastolic 33–69; PULSE 51–67; RESP 12–25; TEMP 36.1–36.9; O2SAT 92–100; BMI 34.1; BMI 34.2; BMI 34.0
--- NOTE | 2020-04-12 10:32 | EKG12_ITS ---
Test Reason : DYSRHYTHMIA Blood Pressure : / mmHG Vent. Rate : 052 BPM Atrial Rate : 052 BPM P-R Int : 198 ms QRS Dur : 106 ms QT Int : 508 ms P-R-T Axes : 069 196 049 degrees QTc Int : 472 ms Sinus bradycardia Right superior axis deviation Abnormal ECG Confirmed by REX LOONEY, JUSTIN ([id number]), web content editor MELISA MARTINEZ ([id number]) on 04/13/2020 1:10:40 PM Referred By: ALE Confirmed By:JUSTIN GOODMAN MD
--- NOTE | 2020-04-12 10:38 | ED.VISSUMM ---
- ER Visit Summary Date of Service: 04/12/20 Chief Complaint: Fatigue History of Present Illness: The patient is a 74 F who presents with increasing fatigue over the past 3 days. states she has been getting weaker over the past 3 days. Patient was supposed to have a Holter monitor placed today but kept falling asleep while they were trying to place the monitor. Patient has a history of end-stage renal disease and takes dialysis on Friday, Friday, , and Friday. Patient denies any fevers or chills. Patient denies any cough or shortness of breath. Patient does admit to some back pain. Patient does not urinate. Patient denies any nausea or vomiting. Physical Examination: Vital signs are stable. Blood pressure is borderline at 100/41. There is mild bradycardia of 51. Patient is in no acute distress. Patient is afebrile. Oral mucosa is pink and moist. Neck is supple. Trachea is midline. There is no JVD. Heart was regular and bradycardic. Lungs are clear and equal bilaterally. Abdomen is soft. Bowel sounds are normal. There is no tenderness. Cranial nerves II through XII are intact. There are no focal motor or sensory deficits noted. Extremities are intact. There is no calf tenderness or edema. Test Results: Arterial blood gas showed a pH of 7.20 with a PCO2 of 72.4 and a bicarb of 28. CT scan of the brain was obtained. There is no acute intracranial abnormality. Chest x-ray does not show any acute cardiopulmonary process. Troponin was slightly elevated at 0.052. Creatinine was elevated at 4.5 however, patient has a history of chronic kidney disease. Lactate was slightly elevated at 2.1. Emergency Department Course and Treatment: Initially, the patient was refusing BiPAP. However, I was able to talk her into agreeing to the BiPAP. Patient was placed on BiPAP. Case was discussed with Dr. Valencia from ICU. He states the patient is stable for PCU admission. Case was discussed with the hospitalist. Patient will be admitted to the hospital. Patient and family understand and are agreeable with the plan. All questions were answered. Disposition: Admit to hospital Impression: 1. Respiratory acidosis This note was generated with [employer] dictation software. It may contain incorrect words, spelling, and punctuation that were not noted in review of the chart prior to signing ED Disposition - Plan for ED Patient: Disposition: Acute Care Hospital [facility]
--- NOTE | 2020-04-12 11:10 | CT_ITS ---
STUDY: CT BRAIN WITHOUT CONTRAST REASON FOR EXAM: Female, 74 years old. INCREASED FATIGUE AND LETHARGIC X 3 DAYS. HX CRANIOTOMY ICH 2016 RADIATION DOSAGE (If Supplied By Facility): CTDIvol = ( 44.99 ) mGy, DLP = ( 796.11 ) mGycm TECHNIQUE: Transaxial CT imaging of the brain was performed without administration of intravenous contrast material. Individualized dose optimization techniques were used for this CT. COMPARISON: Comparison is made with prior examination dated March 01, 2008. FINDINGS: Normal soft tissue structures. Status post craniotomy of the left occipital bone with resultant encephalomalacia in the left cerebellar hemisphere. There is mild cerebral atrophy with widening of the extra-axial spaces and ventricular dilatation. Normal white matter tracts of the cerebral hemispheres. Normal basal ganglia and thalami. Normal brainstem. There is no intracranial hemorrhage. There are no findings of an acute ischemic infarction. Atherosclerotic calcification of the vertebral arteries and cavernous portions of the internal carotid arteries bilaterally. Normal visualized paranasal sinuses. CT/Brain/Head without Contrast IMPRESSION: Chronic involutional changes of the brain. Stable examination. Electronically Signed: Brett Arcos, at 11:50 EDT , Service support ,
[2020-04-12 11:12] LABS: Absolute Neutrophil Count 2.5 X10^3/uL (2.0-7.7); Basophil# 0.01 X10^3/uL; Basophil% 0.3 % (0-1); Eosinophil# 0.07 X10^3/uL; Eosinophils% 2.1 % (0-5); Hematocrit 38.1 % (37-47); Hemoglobin 10.4 g/dL (12.0-15.0); Lymphocyte % 11.8 % (19-41); Mean Corp Hgb Conc 27.3 g/dL (32-36); Mean Corpuscular Hgb 30.2 pg (27.0-32.0); Mean Corpuscular Volume 110.8 fL (81-99); Mean Platelet Vol. 10.5 fl (6.2-12.0); Monocyte# 0.42 X10^3/uL; Monocyte% 12.4 % (0-10); NRBC Flagged by Analyzer 0 % (0-5); Neutrophil # 2.45 X10^3/uL (2.7-7.7); Neutrophil % 72.5 % (47-70); POSITIVE COUNT YES; POSITIVE DIFFERENTIAL YES; POSITIVE MORPHOLOGY YES; Platelet Count 97 K/mm3 (150-450); RBC Distribution Width SD 69.5 fl (35.1-43.9); Red Blood Count 3.44 M/mm3 (4.2-5.4); White Blood Count 3.4 K/mm3 (4.4-11.0)
[2020-04-12 11:19] LABS: Differential Indicated SCAN CRITERIA MET; International Normalized Ratio 1.2; Prothrombin Time (Protime)PT. 14.3 SECONDS (11.7-14.9)
[2020-04-12 11:21] LABS: Partial Thromboplast Time 33.9 Seconds (24.1-36.2)
--- NOTE | 2020-04-12 11:22 | RAD_ITS ---
STUDY: X-RAY CHEST REASON FOR EXAM: Female, 74 years old. LETHARGIC X 3 DAYS WEAKNESS TECHNIQUE: Single AP portable view of the chest. COMPARISON: Comparison is made with prior study dated June 21, 2019. FINDINGS: EKG electrodes are seen. Stable elevation of the right hemidiaphragm. Mild degree of increased bilateral perihilar markings suggestive of scarring. There is no demonstrated pleural abnormality. There is moderate cardiac enlargement. Normal mediastinum and jose f. Normal visualized pulmonary arteries. There is atherosclerotic calcification of the aortic arch with tortuosity. Prior vertebroplasty of the L1 vertebrae. Normal visualized ribs, clavicles, and shoulders. There is no demonstrated abnormality of the visualized soft tissue structures of the upper abdomen. RAD/Chest 1 View (Portable) IMPRESSION: Moderate cardiomegaly. Stable mild degree of increased perihilar markings suggestive of scarring. Electronically Signed: Brett Arcos, at 11:59 EDT , Service support ,
[2020-04-12 11:32] LABS: ALB/GLOB Ratio 0.6 RATIO (0.9-2.4); AST(SGOT) 12 U/L (15-37); Alanine Aminotransfer ALT/SGPT 15 U/L (13-56); Albumin, Serum 2.7 g/dL (3.2-5.0); Alkaline Phosphatase 105 U/L (45-117); Anion Gap 5 (5-15); BUN 16 mg/dL (7-18); BUN/Creat Ratio 3.6 RATIO (10-20); Calcium,Total 7.9 mg/dL (8.5-10.1); Chloride 101 mmol/L (98-107); EST Glomerular Filtration Rate 10 mL/min (>60); Est Glom Filt Rate - Afr Amer 12 mL/min (>60); Estimated Creatinine Clearance 10.17 ml/min; Globulin 4.4 g/dL (2.2-4.2); Glucose 116 mg/dL (74-106); Potassium 3.5 mmol/L (3.5-5.1); Protein, Total 7.1 g/dL (6.4-8.2); Sodium Level 136 mmol/L (136-145)
[2020-04-12 11:41] LABS: Lactic Acid 2.1 mmol/L (0.4-1.9)
[2020-04-12 11:42] LABS: Differential Comment SCANNED
[2020-04-12 11:43] LABS: Anisocytosis 1+; Platelet Estimate MOD DEC (ADEQ); Red Cell Morphology N CYTIC NORMAL (NORM C&C)
[2020-04-12 13:16] LABS: Base Excess 0 mmol/L (-2 to +2); Bicarbonate 28.5 mmol/L (22-26); PO2 95 mmHG (75-100); SO2 95 % (95-99); Total Carbon Dioxide 31 mmol/L; pCO2 72.4 mmHg (35-45)
--- NOTE | 2020-04-12 14:16 | CPS ---
[1147] Critical PCO2 results read to Dr. Chun. BiPAP initiated to help treat pt.'s hypercapnia
[2020-04-12 14:31] LABS: BNP,B-Type NATRIURETIC PEPTIDE 3192.6 pg/mL (0-100)
[2020-04-12 14:37] LABS: Allen Test POS; Blood Gas Specimen Type ART; O2 Delivery Device Nasal Can; SITE R RADIAL; Time Given 1147
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
--- NOTE | 2020-04-12 15:03 | ECHOD_ITS ---
Reason For Study: SOB Procedure This was a 2D Doppler, Color Flow transthoracic echocardiogram. The study was technically difficult. Did not use Definity due to increased PAP. Exam performed portable in patient room. Left Ventricle Normal LV size. Left ventricular systolic function is normal. The estimated ejection fraction is 65 %. No regional wall motion abnormalities noted. Right Ventricle Normal RV size. Normal systolic function. Atria The left atrium is moderately enlarged. Normal right atrium. No doppler evidence for ASD. Mitral Valve There is moderate to severe mitral annular calcification. Extension of the mitral annular calcification onto the mitral valve leaflet. Mild focal mitral valve calcification of the anterior leaflet. Mild-Moderate mitral valve stenosis. Moderate (2+) eccentric mitral valve insufficiency. Tricuspid Valve Normal tricuspid valve. Moderate (2+) eccentric tricuspid valve insufficiency. Right ventricular systolic pressure estimated to be 76 mmHg. Aortic Valve Trisinus/trileaflet aortic valve. Mild diffuse aortic valve thickening. Moderate focal aortic valve calcification. Mild aortic stenosis. Pulmonic Valve The pulmonic valve is not well visualized. Trivial pulmonic valve insufficiency. Great Vessels Normal sized aortic root. Pericardium/Pleural No pericardial effusion. MMode/2D Measurements & Calculations LVIDd: 4.9 cm IVSd: 1.0 cm LVOT diam: 2.0 cm LVIDs: 3.0 cm LVPWd: 1.0 cm LVOT area: 3.0 cm2 RVDd: 4.6 cm FS: 39.5 % Ao root diam: 3.0 cm LAV(MOD-bp): 68.8 ml LA A4 area: 21.9 cm2 LAV(MOD-bp) Indexed: 34.8 ml/m2 LAV(MOD-sp2): 77.9 ml LAV(MOD-sp4): 60.3 ml LA dimension(2D): 4.9 cm RA A4 area: 19.2 cm2 Time Measurements MV dec time: 0.18 sec Doppler Measurements & Calculations MV E max jameson: 159.5 cm/sec Lat Peak E' Jameson: 3.1 cm/sec Med Peak E' Jameson: 4.0 cm/sec MV A max jameson: 94.0 cm/sec E/E' lat: 51.5 E/E' med: 39.9 MV E/A: 1.7 MV V2 max: 168.0 cm/sec MV P1/2t max jameson: 164.4 cm/sec Ao V2 max: 275.5 cm/sec MV max P.3 mmHg MV P1/2t: 109.5 msec Ao max P.4 mmHg MV V2 mean: 83.6 cm/sec MV dec slope: 439.5 cm/sec2 Ao V2 mean: 189.2 cm/sec MV mean P.4 mmHg Ao mean P.0 mmHg MV V2 VTI: 67.4 cm MVA(P1/2t): 2.0 cm2 Ao V2 VTI: 66.1 cm MVA(VTI): 1.5 cm2 SHAQ(I,D): 1.5 cm2 SHAQ(V,D): 1.6 cm2 LV V1 max: 144.3 cm/sec SV(LVOT): 100.9 ml PA V2 max: 133.7 cm/sec LV V1 max P.3 mmHg LV V1 mean P.2 mmHg LV V1 mean: 95.3 cm/sec LV V1 VTI: 33.8 cm TR max jameson: 389.1 cm/sec TR max P.6 mmHg Interpretation Summary The study was technically difficult. Left ventricular systolic function is normal. The estimated ejection fraction is 65 %. The left atrium is moderately enlarged. There is moderate to severe mitral annular calcification. Extension of the mitral annular calcification onto the mitral valve leaflet. Mild focal mitral valve calcification of the anterior leaflet. Mild-Moderate mitral valve stenosis. Moderate (2+) eccentric mitral valve insufficiency. Moderate (2+) eccentric tricuspid valve insufficiency. Mild aortic stenosis. Trivial pulmonic valve insufficiency. Right ventricular systolic pressure estimated to be 76 mmHg c/w pulmonary hypertension. Transmitral diastolic flow velocities suggest diastolic dysfunction (pseudonormal pattern). Ordering Physician: Dariana Gusman Referring Physician: Zeenat Harp Performed By: Lori Gonzalez RDCS, RVT
[2020-04-12 15:07] LABS: Reflex Lactate? Y
--- NOTE | 2020-04-12 15:17 | CASEMGMT ---
Per Mckay at [facility], pt does home dialysis MTTF. Justin BENITEZ CM
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
[2020-04-12] MEDS: Ipratropium/Albuterol Sulfate 3 ML AMPUL.NEB INHALATION ×2 (15:49→18:57)
[2020-04-12 16:21] LABS: Base Excess 1 mmol/L (-2 to +2); Bicarbonate 28.3 mmol/L (22-26); PO2 65 mmHG (75-100); SO2 88 % (95-99); Total Carbon Dioxide 30 mmol/L; pCO2 65.4 mmHg (35-45); pH 7.25 (7.35-7.45)
[2020-04-12 16:25] LABS: Lactic Acid 2.1 mmol/L (0.4-1.9)
[2020-04-12] MEDS: Aspirin 325 MG Tablet PO (17:35)
[2020-04-12] MEDS: Escitalopram Oxalate 10 MG Tablet PO (17:35)
[2020-04-12] MEDS: Amiodarone 200 MG Tablet 100 MG PO (17:35)
[2020-04-12 21:31] LABS: Anion Gap 4 (5-15); BUN 19 mg/dL (7-18); BUN/Creat Ratio 3.6 RATIO (10-20); Calcium,Total 7.7 mg/dL (8.5-10.1); Chloride 102 mmol/L (98-107); Creatinine, Serum 5.34 mg/dL (0.55-1.02); EST Glomerular Filtration Rate 8 mL/min (>60); Est Glom Filt Rate - Afr Amer 10 mL/min (>60); Estimated Creatinine Clearance 8.57 ml/min; Glucose 133 mg/dL (74-106); Magnesium 1.6 mg/dL (1.6-2.6); Potassium 3.6 mmol/L (3.5-5.1); Sodium Level 136 mmol/L (136-145)
--- NOTE | 2020-04-12 22:02 | DIALYSIS ---
Report from primary RN, Neva Pemberton Access: Left forearm AVF. Site benign, thrill and bruit present, cannulated with 15 gauge buttonhole needles x 2. [place] taped securely.
[2020-04-13] VITALS (20 sets, daily range): BP systolic 100–115; BP diastolic 43–60; PULSE 51–77; RESP 12–26; TEMP 36.4–37.2; O2SAT 96–100
--- NOTE | 2020-04-13 02:11 | DIALYSIS ---
Hemodialysis complete. 3 hour run, 3k bath. Net fluid removed = 2400 ml. Patient tolerated HD tx well. Left forearm AVF: site benign, thrill and bruit present, needle site pressure held 5 min arterial and 10 min venous. Hemostasis achieved. Report given to primary RN, Genesis Pemberton.
[2020-04-13] MEDS: Magnesium Sulfate 1 GM in 0.9% Normal Saline 100 ML IV (02:23)
[2020-04-13] MEDS: Atorvastatin Calcium 40 MG Tablet PO ×2 (02:24→21:48)
[2020-04-13] MEDS: Ipratropium/Albuterol Sulfate 3 ML AMPUL.NEB INHALATION ×5 (02:58→19:20)
[2020-04-13 05:07] LABS: Allen Test POS; Base Excess 3 mmol/L (-2 to +2); Bicarbonate 29.3 mmol/L (22-26); Blood Gas Specimen Type ART; EPAP 6; FI02 28; IPAP 16; O2 Delivery Device Bi Pap; PO2 74 mmHG (75-100); SITE R RADIAL; SO2 93 % (95-99); Total Carbon Dioxide 31 mmol/L; pCO2 58.8 mmHg (35-45); pH 7.31 (7.35-7.45)
[2020-04-13] MEDS: Heparin Injection (Vial) 5,000 UNIT/ML VIAL 5000 UNIT SC ×3 (05:52→21:49)
--- NOTE | 2020-04-13 05:55 | RAD_ITS ---
STUDY: X-RAY CHEST REASON FOR EXAM: Female, 74 years old. Sob TECHNIQUE: Single AP portable view of the chest. COMPARISON: Comparison is made with prior study dated April 12, 2020. FINDINGS: EKG electrodes are seen. Stable elevation of the right hemidiaphragm with increased markings in the right infrahilar region suggestive of a atelectasis and/or scarring. The left lung base is unchanged. There is no demonstrated pleural abnormality. There is moderate cardiac enlargement. Normal mediastinum and jose f. Normal visualized pulmonary arteries. There is atherosclerotic calcification of the aortic arch with tortuosity. Normal visualized thoracic spine. Normal visualized ribs, clavicles, and shoulders. There is no demonstrated abnormality of the visualized soft tissue structures of the upper abdomen. RAD/Chest 1 View (Portable) IMPRESSION: Stable examination. Electronically Signed: Brett Arcos, at 9:00 EDT , Service support ,
[2020-04-13 06:24] LABS: Absolute Lymphocyte Count 0.38 X10^3/uL (0.83-4.51); Absolute Neutrophil Count 2.6 X10^3/uL (2.0-7.7); Basophil# 0.02 X10^3/uL; Basophil% 0.6 % (0-1); Eosinophil# 0.08 X10^3/uL; Eosinophils% 2.3 % (0-5); Hematocrit 34.1 % (37-47); Hemoglobin 9.6 g/dL (12.0-15.0); Lymphocyte # 0.38 X10^3/ul (4.0); Lymphocyte % 10.9 % (19-41); Mean Corp Hgb Conc 28.2 g/dL (32-36); Mean Corpuscular Hgb 30.5 pg (27.0-32.0); Mean Corpuscular Volume 108.3 fL (81-99); Mean Platelet Vol. 10.1 fl (6.2-12.0); Monocyte# 0.43 X10^3/uL; Monocyte% 12.3 % (0-10); NRBC Flagged by Analyzer 0 % (0-5); Neutrophil # 2.57 X10^3/uL (2.7-7.7); Neutrophil % 73.3 % (47-70); POSITIVE COUNT YES; POSITIVE DIFFERENTIAL YES; POSITIVE MORPHOLOGY YES; Platelet Count 84 K/mm3 (150-450); RBC Distribution Width CV 16.8 % (11.6-14.6); RBC Distribution Width SD 68.1 fl (35.1-43.9); Red Blood Count 3.15 M/mm3 (4.2-5.4); White Blood Count 3.5 K/mm3 (4.4-11.0)
[2020-04-13 06:26] LABS: Differential Indicated SCAN CRITERIA MET
[2020-04-13 06:58] LABS: Differential Comment SCANNED
[2020-04-13 06:59] LABS: Platelet Estimate MOD DEC (ADEQ); Tear Drop Cell RARE
[2020-04-13 07:02] LABS: ALB/GLOB Ratio 0.6 RATIO (0.9-2.4); AST(SGOT) 16 U/L (15-37); Alanine Aminotransfer ALT/SGPT 12 U/L (13-56); Albumin, Serum 2.2 g/dL (3.2-5.0); Alkaline Phosphatase 86 U/L (45-117); Anion Gap 6 (5-15); BUN 9 mg/dL (7-18); BUN/Creat Ratio 2.9 RATIO (10-20); Calcium,Total 7.4 mg/dL (8.5-10.1); Chloride 102 mmol/L (98-107); Creatinine, Serum 3.08 mg/dL (0.55-1.02); EST Glomerular Filtration Rate 16 mL/min (>60); Est Glom Filt Rate - Afr Amer 19 mL/min (>60); Estimated Creatinine Clearance 14.86 ml/min; Glucose 94 mg/dL (74-106); Potassium 3.3 mmol/L (3.5-5.1); Protein, Total 6.2 g/dL (6.4-8.2); Sodium Level 134 mmol/L (136-145); Thyroid Stim Hormone (TSH) 0.47 uIU/mL (0.358-3.74)
[2020-04-13 07:23] LABS: Blood Gas Specimen Type ART
--- NOTE | 2020-04-13 09:05 | PN_ITS ---
Patient Problems: Active and Suspected Problems (Last Reviewed 04/12/20 @ 15:[address] Dariana Gusman, DO) Metabolic encephalopathy (Acute) Acute hypercapnic respiratory failure (Acute) Subjective: Sleeping but awakens easily. No complaints. States that she feels better. Seems less drowsy. Vitals/I&O's: Vital Signs Temp Pulse Resp BP Pulse Ox 97.9 F 52 L 20 H 111/56 L 96 04/13/20 06:01 04/13/20 07:29 04/13/20 07:11 04/13/20 06:01 04/13/20 07:08 Oxygen Flow Rate (L/min) 2 Oxygen Delivery Method Bi-pap Weight: 93 kg Body Mass Index (BMI) 34.0 Finger Stick Blood Glucose 500 Intake and Output for Last 24 Hours 04/11/20 04/12/20 04/13/20 23:59 23:59 23:59 Intake Total 665 / 665 342 / 342 Output Total 2400 / 2400 Balance 665 / 665 -2057 / General: Alert, Oriented x3, Cooperative, No apparent distress, Well developed, Well nourished, - - WF lying in bed on NIV, sleeping but awakens easily to name HEENT: Atraumatic, PERRLA, EOMI, Normocephalic, EAC Clear Oral: No Gingival or Mucosal Lesions/ Ulcerations, Dry Mucosa Neck: Supple, No Nodes, Trachea Midline Lungs: No rhonchi, No wheeze, No rales, Diminished - diffusely, - - appears comfortable on NIV Abdomen: Bowel Sounds Present, Soft, Non Tender, Non-Distended, Obese Extremities: No clubbing, No cyanosis, Edema - Trace firm pitting B LE, Peripheral Pulses Normal Skin: No rashes, No breakdown Musculoskeletal: No Tenderness to Palpation of Joints or Extremities, No Muscle Wasting, Arthritic Changes Lymphatic: No Cervical, Supraclavicular, or Inguinal Adenopathy Neurological: Cranial nerves II-XII grossly intact, Neuro grossly intact Psych/Mental Status: Normal Affect, Appropriate, Alert and oriented to time, place, person, mood and affect Laboratory Results 04/12/20 10:52: Sodium 136, Potassium 3.5, Chloride 101, Carbon Dioxide 30.0, Anion Gap 5, BUN 16, Creatinine 4.50 H, Estim Creat Clear Calc 10.17, Est GFR (MDRD) Af Amer 12 L, Est GFR (MDRD) Non-Af 10 L, BUN/Creatinine Ratio 3.6 L, Glucose 116 H, Calcium 7.9 L, Total Bilirubin 0.50, AST 12 L, ALT 15, Alkaline Phosphatase 105, Troponin I 0.052 H, Total Protein 7.1, Albumin 2.7 L, Globulin 4.4 H, Albumin/Globulin Ratio 0.6 L 04/12/20 10:52: WBC 3.4 L, RBC 3.44 L, Hgb 10.4 L, Hct 38.1, MCV 110.8 H, MCH 30.2, MCHC 27.3 L, RDW Std Deviation 69.5 H, RDW Coeff of Norma 17.0 H, Plt Count 97 L, MPV 10.5, Immature Gran % (Auto) 0.900, Neut % (Auto) 72.5 H, Lymph % (A uto) 11.8 L, [place] % (Auto) 12.4 H, Eos % (Auto) 2.1, Baso % (Auto) 0.3, Absolute Neuts (auto) 2.5, Absolute Lymphs (auto) 0.40 L, Nucleated RBC % 0, Differential Comment SCANNED, Platelet Estimate MOD DEC, RBC Morphology N CYTIC, Anisocytosis 1+ 04/12/20 10:52: PT 14.3, INR 1.2, APTT 33.9 04/12/20 10:52: Lactic Acid 2.1 H* 04/12/20 10:52: B-Natriuretic Peptide 3192.6 H 04/12/20 11:47: Specimen Type ART, Sample Site R RADIAL, pH 7.20 L, Bicarbonate Actual 28.5 H, POC Total CO2 31, Base Excess 0, O2 Saturation 95, ABG pCO2 72.4 H*, ABG pO2 95, Johnny Test POS, O2 Delivery Device Nasal Can, Liter Flow 2.0, Blood Gas Notified Whom ED , Blood Gas Notified Time 1147 04/12/20 14:56: Troponin I 0.052 H 04/12/20 15:17: Specimen Type ART, pH 7.25 L, Bicarbonate Actual 28.3 H, POC Total CO2 30, Base Excess 1, O2 Saturation 88 L, ABG pCO2 65.4 H, ABG pO2 65 L 04/12/20 15:29: Lactic Acid 2.1 H* 04/12/20 18:10: Troponin I 0.038 04/12/20 21:00: Sodium 136, Potassium 3.6, Chloride 102, Carbon Dioxide 30.0, Anion Gap 4 L, BUN 19 H, Creatinine 5.34 H, Estim Creat Clear Calc 8.57, Est GFR (MDRD) Af Amer 10 L, Est GFR (MDRD) Non-Af 8 L, BUN/Creatinine Ratio 3.6 L, Glucose 133 H, Calcium 7.7 L, Magnesium 1.6 04/13/20 05:00: Specimen Type ART, Sample Site R RADIAL, pH 7.31 L, Bicarbonate Actual 29.3 H, POC Total CO2 31, Base Excess 3 H, O2 Saturation 93 L, O2 % 28, ABG pCO2 58.8 H, ABG pO2 74 L, Johnny Test POS, O2 Delivery Device Bi Pap, EPAP 6, IPAP 16, Blood Gas Notified Whom HOSP 04/13/20 05:54: WBC 3.5 L, RBC 3.15 L, Hgb 9.6 L, Hct 34.1 L, MCV 108.3 H, MCH 30.5, MCHC 28.2 L, RDW Std Deviation 68.1 H, RDW Coeff of Norma 16.8 H, Plt Count 84 L, MPV 10.1, Immature Gran % (Auto) 0.600, Neut % (Auto) 73.3 H, Lymph % (Auto) 10.9 L, [place] % (Auto) 12.3 H, Eos % (Auto) 2.3, Baso % (Auto) 0.6, Absolute Neuts (auto) 2.6, Absolute Lymphs (auto) 0.38 L, Nucleated RBC % 0, Differential Comment SCANNED, Diff Path Review February foll, Platelet Estimate MOD DEC, Tear Drop Cells RARE 04/13/20 05:54: Sodium 134 L, Potassium 3.3 L, Chloride 102, Carbon Dioxide 26.0, Anion Gap 6, BUN 9, Creatinine 3.08 H, Estim Creat Clear Calc 14.86, Est GFR (MDRD) Af Amer 19 L, Est GFR (MDRD) Non-Af 16 L, BUN/Creatinine Ratio 2.9 L, Glucose 94, Calcium 7.4 L, Total Bilirubin 0.40, AST 16, ALT 12 L, Alkaline Phosphatase 86, Total Protein 6.2 L, Albumin 2.2 L, Globulin 4.0, Albumin/Globulin Ratio 0.6 L, TSH 0.47 Current Medications Acetaminophen (Tylenol) 650 mg PO Q6H PRN PRN PRN Reason: PAIN 1-10/Temp > 100.7 F Al Hydroxide/Mg Hydroxide (Mylanta Ii) 30 ml PO Q6H PRN PRN PRN Reason: Gastric Burning Albuterol/Ipratropium (Duoneb) 3 ml INHALATION Q4H.RT [facility] Last Admin: 04/13/20 07:08 Dose: 3 ml Documented by: Amiodarone HCl (Cordarone) 100 mg PO [id number] [facility] Last Admin: 04/12/20 17:35 Dose: 100 mg Documented by: Aspirin (Aspirin) 325 mg PO BIDCM [facility] Last Admin: 04/12/20 17:35 Dose: 325 mg Documented by: Atorvastatin Calcium (Lipitor) 40 mg PO QHS [facility] Last Admin: 04/13/20 02:24 Dose: 40 mg Documented by: Calcitriol (Rocaltrol) 0.25 mcg PO DAILY [facility] Docusate Sodium (Colace) 200 mg PO BID PRN PRN PRN Reason: Constipation Escitalopram Oxalate (Lexapro) 10 mg PO DAILY [facility] Last Admin: 04/12/20 17:35 Dose: 10 mg Documented by: Heparin Sodium (Porcine) (Heparin Na) 5,000 unit SC Q8 [facility] Last Admin: 04/13/20 05:52 Dose: 5,000 unit Documented by: Ceftriaxone Sodium 2 gm/ (Sodium Chloride) 50 mls @ 100 mls/hr IV Q24 [facility] Last Infusion: 04/12/20 18:09 Dose: Infused Documented by: Insulin Glargine (Lantus (Bkc)) 20 units SC DAILY [facility] Ondansetron HCl (Zofran) 4 mg IV Q8H PRN PRN PRN Reason: Nausea Pantoprazole Sodium (Protonix) 40 mg PO DAILY [facility] Sodium Chloride () 10 - 40 ml IV UD PRN PRN Reason: SALINE FLUSH STROKE Vital Signs/Narrative: Vital Signs Temp Pulse Resp BP Pulse Ox 04/13/20 07:29 52 L 04/13/20 07:11 54 L 20 H 04/13/20 07:08 52 L 23 H 96 04/13/20 06:01 97.9 F 56 L 22 H 111/56 L 100 Medical Necessity - Tobacco Use Smoking Status: Never smoker Tobacco Use: Non-smoker Assessment/Plan All Active Problems (Last Reviewed 04/12/20 @ 15:[address] Dariana Gusman, DO) Metabolic encephalopathy (Acute) Acute hypercapnic respiratory failure (Acute) Lethargy (Acute) JORGE (acute kidney injury) (Resolved) C. difficile diarrhea (Resolved) Acute Hypercapnic on Chronic Hypoxic Respiratory Failure--> suspect multifactorial (HFpEF/COPD/INES/OHS) -pt wears 3 L n/c at baseline -ABG in ED showed pH of 7.2 with PCO2 72.4/PO2 of 95 -ABG better this am (pH 7.31/PCO2 58.8/PO2 74) -ok to come off NIV for meals up to 1 hr and then back on -repeat ABGin am -BNP was markedly elevated even when compared to baseline--> HD yesterday -pt has no ability to compensate for hypercapnia via kidneys--> HD dependent -pt is a never smoker -doubt infection -will give 1 dose of azithromycin and CTX for now with pending cx--> will likely be able to d/c tomorrow -CXR better today -pulm toilet -Pulm following--> Pt follows with Dr. Valencia as outpt -d/w Dr. Valencia Troponin Elevation -suspect demand ischemia -troponin trending down -ECHO pending (this 65%/LAE/Mild /RVSP 51 mmHg)/diastolic dysfunction) -EKG without ST-T wave changes Lactic Acidosis -suspect resolved with HD Pancytopenia -mild white count depression -stable -hgb stable/plts stable -trend counts INES -untreated as pt has refused nocturnal BIPAP therapy as recommended ESRD -HD per Dr. Vu -Nephro consulted -HD is TRFSat -did get HD today -pt on lasix but makes no urine--> D/W nephro and ok to d/c Bradycardia -has been an issue -only med that could precipitate is amio -was to have a holter ordered by Dr. Mcclendon to start today but was sent to ED for MS instead -TSH WNL -Holter set up on D/C -tele Metabolic Encephalopathy -2/2 hypercapnia -improving on NIV -monitor -avoid sedation meds HTN/HPL/PVD -continue ASA/Lipitor PAF -amiodarone -no OAC with h/o head bleed -on ASA full dose BID Depression -continue Lexapro CREST Syndrome -stable L Index finger wound -follows at wound care -healing well -consult wound care -no s/o infection Obesity -recommend wgt loss DVT prophylaxis -heparin TID Code Status -FULL Inpatient E&M: 02162 [facility] Hosp L3
--- NOTE | 2020-04-13 09:47 | PN_ITS ---
Patient Problems: Active and Suspected Problems (Last Reviewed 04/12/20 @ 15:[address] Dariana Gusman, DO) Metabolic encephalopathy (Acute) Acute hypercapnic respiratory failure (Acute) Subjective: Patient appears to be much more appropriate today. Patient did have hemodialysis yesterday with volume removal and improvement in saturations. Patient denies any current chest pain and states that she is tolerating the BiPAP well. Objective: Chest x-ray appears to be improved compared to previous - Physical Exam Vitals/I&O's: Vital Signs Temp Pulse Resp BP Pulse Ox 36.6 C 52 L 20 H 111/56 L 96 04/13/20 06:01 04/13/20 07:29 04/13/20 07:11 04/13/20 06:01 04/13/20 07:08 Oxygen Flow Rate (L/min) 2 Oxygen Delivery Method Bi-pap Weight: 93 kg Body Mass Index (BMI) 34.0 Finger Stick Blood Glucose 500 Intake and Output for Last 24 Hours 04/11/20 04/12/20 04/13/20 23:59 23:59 23:59 Intake Total 665 / 665 342 / 342 Output Total 2400 / 2400 Balance 665 / 665 -2057 / -2057 General: Alert, Oriented x3, Cooperative, No apparent distress - On BiPAP, - - Obese. Appears older than stated age. HEENT: Atraumatic, PERRLA, EOMI, Normocephalic, - - No scleral icterus or injection noted Oral: Moist Mucosa, No Gingival or Mucosal Lesions/ Ulcerations Neck: Supple, No JVD, No Nodes, Trachea Midline Lungs: No rhonchi, No wheeze, No rales, Diminished, - - Symmetric expansion. Cardiovascular: Normal S1, Normal S2, Bradycardic, No rub noted, No Gallop Abdomen: Bowel Sounds Present, Soft, Non Tender, Non-Distended, Obese Extremities: No clubbing, No cyanosis, Edema Skin: - - No change compared to previous Musculoskeletal: No Tenderness to Palpation of Joints or Extremities Lymphatic: No Cervical, Supraclavicular, or Inguinal Adenopathy Neurological: Cranial nerves II-XII grossly intact, Neuro grossly intact, Motor Exam 5/5 strength throughout Psych/Mental Status: Normal Affect, Appropriate Laboratory Results 04/12/20 10:52: Sodium 136, Potassium 3.5, Chloride 101, Carbon Dioxide 30.0, Anion Gap 5, BUN 16, Creatinine 4.50 H, Estim Creat Clear Calc 10.17, Est GFR (MDRD) Af Amer 12 L, Est GFR (MDRD) Non-Af 10 L, BUN/Creatinine Ratio 3.6 L, Glucose 116 H, Calcium 7.9 L, Total Bilirubin 0.50, AST 12 L, ALT 15, Alkaline Phosphatase 105, Troponin I 0.052 H, Total Protein 7.1, Albumin 2.7 L, Globulin 4.4 H, Albumin/Globulin Ratio 0.6 L 04/12/20 10:52: WBC 3.4 L, RBC 3.44 L, Hgb 10.4 L, Hct 38.1, MCV 110.8 H, MCH 30.2, MCHC 27.3 L, RDW Std Deviation 69.5 H, RDW Coeff of Norma 17.0 H, Plt Count 97 L, MPV 10.5, Immature Gran % (Auto) 0.900, Neut % (Auto) 72.5 H, Lymph % (Auto) 11.8 L, Ripley % (Auto) 12.4 H, Eos % (Auto) 2.1, Baso % (Auto) 0.3, Absolute Neuts (auto) 2.5, Absolute Lymphs (auto) 0.40 L, Nucleated RBC % 0, Differential Comment SCANNED, Platelet Estimate MOD DEC, RBC Morphology N CYTIC, Anisocytosis 1+ 04/12/20 10:52: PT 14.3, INR 1.2, APTT 33.9 04/12/20 10:52: Lactic Acid 2.1 H* 04/12/20 10:52: B-Natriuretic Peptide 3192.6 H 04/12/20 11:47: Specimen Type ART, Sample Site R RADIAL, pH 7.20 L, Bicarbonate Actual 28.5 H, POC Total CO2 31, Base Excess 0, O2 Saturation 95, ABG pCO2 72.4 H*, ABG pO2 95, Johnny Test POS, O2 Delivery Device Nasal Can, Liter Flow 2.0, Blood Gas Notified Whom ED , Blood Gas Notified Time 1147 04/12/20 14:56: Troponin I 0.052 H 04/12/20 15:17: Specimen Type ART, pH 7.25 L, Bicarbonate Actual 28.3 H, POC Total CO2 30, Base Excess 1, O2 Saturation 88 L, ABG pCO2 65.4 H, ABG pO2 65 L 04/12/20 15:29: Lactic Acid 2.1 H* 04/12/20 18:10: Troponin I 0.038 04/12/20 21:00: Sodium 136, Potassium 3.6, Chloride 102, Carbon Dioxide 30.0, Anion Gap 4 L, BUN 19 H, Creatinine 5.34 H, Estim Creat Clear Calc 8.57, Est GFR (MDRD) Af Amer 10 L, Est GFR (MDRD) Non-Af 8 L, BUN/Creatinine Ratio 3.6 L, Glucose 133 H, Calcium 7.7 L, Magnesium 1.6 04/13/20 05:00: Specimen Type ART, Sample Site R RADIAL, pH 7.31 L, Bicarbonate Actual 29.3 H, POC Total CO2 31, Base Excess 3 H, O2 Saturation 93 L, O2 % 28, ABG pCO2 58.8 H, ABG pO2 74 L, Johnny Test POS, O2 Delivery Device Bi Pap, EPAP 6, IPAP 16, Blood Gas Notified Whom CHRISTIANO LOONEY 04/13/20 05:54: WBC 3.5 L, RBC 3.15 L, Hgb 9.6 L, Hct 34.1 L, MCV 108.3 H, MCH 30.5, MCHC 28.2 L, RDW Std Deviation 68.1 H, RDW Coeff of Norma 16.8 H, Plt Count 84 L, MPV 10.1, Immature Gran % (Auto) 0.600, Neut % (Auto) 73.3 H, Lymph % (Auto) 10.9 L, Ripley % (Auto) 12.3 H, Eos % (Auto) 2.3, Baso % (Auto) 0.6, Absolute Neuts (auto) 2.6, Absolute Lymphs (auto) 0.38 L, Nucleated RBC % 0, Differential Comment SCANNED, Diff Path Review February all, Platelet Estimate MOD DEC, Tear Drop Cells RARE 04/13/20 05:54: Sodium 134 L, Potassium 3.3 L, Chloride 102, Carbon Dioxide 26.0, Anion Gap 6, BUN 9, Creatinine 3.08 H, Estim Creat Clear Calc 14.86, Est GFR (MDRD) Af Amer 19 L, Est GFR (MDRD) Non-Af 16 L, BUN/Creatinine Ratio 2.9 L, Glucose 94, Calcium 7.4 L, Total Bilirubin 0.40, AST 16, ALT 12 L, Alkaline Phosphatase 86, Total Protein 6.2 L, Albumin 2.2 L, Globulin 4.0, Albumin/Globulin Ratio 0.6 L, TSH 0.47 Current Medications Acetaminophen (Tylenol) 650 mg PO Q6H PRN PRN PRN Reason: PAIN 1-10/Temp > 100.7 F Al Hydroxide/Mg Hydroxide (Mylanta Ii) 30 ml PO Q6H PRN PRN PRN Reason: Gastric Burning Albuterol/Ipratropium (Duoneb) 3 ml INHALATION Q4H.RT [facility] Last Admin: 04/13/20 07:08 Dose: 3 ml Documented by: Amiodarone HCl (Cordarone) 100 mg PO MoWeFr@0800 [facility] Last Admin: 04/12/20 17:35 Dose: 100 mg Documented by: Aspirin (Aspirin) 325 mg PO BIDCM [facility] Last Admin: 04/12/20 17:35 Dose: 325 mg Documented by: Atorvastatin Calcium (Lipitor) 40 mg PO QHS [facility] Last Admin: 04/13/20 02:24 Dose: 40 mg Documented by: Calcitriol (Rocaltrol) 0.25 mcg PO DAILY [facility] Docusate Sodium (Colace) 200 mg PO BID PRN PRN PRN Reason: Constipation Escitalopram Oxalate (Lexapro) 10 mg PO DAILY [facility] Last Admin: 04/12/20 17:35 Dose: 10 mg Documented by: Heparin Sodium (Porcine) (Heparin Na) 5,000 unit SC Q8 [facility] Last Admin: 04/13/20 05:52 Dose: 5,000 unit Documented by: Ceftriaxone Sodium 2 gm/ (Sodium Chloride) 50 mls @ 100 mls/hr IV Q24 [facility] Last Infusion: 04/12/20 18:09 Dose: Infused Documented by: Insulin Glargine (Lantus (Bkc)) 20 units SC DAILY [facility] Ondansetron HCl (Zofran) 4 mg IV Q8H PRN PRN PRN Reason: Nausea Pantoprazole Sodium (Protonix) 40 mg PO DAILY [facility] Sodium Chloride () 10 - 40 ml IV UD PRN PRN Reason: SALINE FLUSH Clinical Impression(s) from Imaging Studies Brain CT 04/12/20 11:10 IMPRESSION: Chronic involutional changes of the brain. Stable examination. Electronically Signed: Brett Arcos, at 11:50 EDT , Service support , Chest X-Ray 04/12/20 11:22 IMPRESSION: Moderate cardiomegaly. Stable mild degree of increased perihilar markings suggestive of scarring. Electronically Signed: Brett Reavesavila, at 11:59 EDT , Service support , Chest X-Ray 04/13/20 05:55 IMPRESSION: Stable examination. Electronically Signed: Brett Reavesavila, at 9:00 EDT , Service support , Medical Necessity - Tobacco Use Smoking Status: Never smoker Tobacco Use: Non-smoker Assessment/Plan All Active Problems (Last Reviewed 04/12/20 @ 15:[address] Dariana Gusman, DO) Metabolic encephalopathy (Acute) Acute hypercapnic respiratory failure (Acute) Lethargy (Acute) JORGE (acute kidney injury) (Resolved) C. difficile diarrhea (Resolved) RECOMMENDATIONS: 1. BiPAP breaks as tolerated 2. Continue BiPAP therapy with sleep 3. Keep saturations 88 to 92% 4. Consider volume removal with hemodialysis 5. Likely okay to discontinue antibiotics at 48 hours if culture negative 6. Increase activity as tolerated IMPRESSIONS: 1. Acute on chronic combined respiratory failure Patient with severe restriction on previous pulmonary function testing and has a BNP greater than 3000. Chest x-ray appears to be improved after volume removal. Could consider a chest ultrasound for evaluation. Patient does have significant cardiomegaly and this may be leading to blunting of the left costophrenic angle. Agree with empiric antibiotics pending cultures for 48 hours. Repeat ABG shows some improvement. Do not believe steroids are necessary at this time. Clinical suspicion for a slow progression and hypercarbic respiratory failure secondary to noncompliance with INES therapy. 2. Elevated troponin Clinical suspicion for supply demand mismatch. This is likely also the etiology of patient's minimally elevated lactate. Agree with checking echoes, but no indication for systemic anticoagulation from my perspective. 3. Morbid obesity/pancytopenia/untreated INES/ESRD/hypertension/hyperlipidemia/peripheral vascular disease/PAF/depression/crest syndrome Complicates care, management, recovery and prognosis. Despite extensive medical history and relatively poor prognosis secondary to noncompliance, patient does wish to remain a full code. Okay to continue with baseline medications from my perspective. Patient is not currently on anticoagulation secondary to a history of a head bleed Inpatient E&M: [id number] [facility] Hosp L3
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
[2020-04-13] MEDS: Aspirin 325 MG Tablet PO ×2 (11:38→17:43)
[2020-04-13] MEDS: Pantoprazole Sodium 40 MG Tablet PO (11:39)
[2020-04-13] MEDS: 0.9% Saline Lock 10 ML Syringe IV (11:39)
[2020-04-13] MEDS: Escitalopram Oxalate 10 MG Tablet PO (11:39)
[2020-04-13] MEDS: Calcitriol 0.25 MCG Capsule PO (11:39)
--- NOTE | 2020-04-13 11:39 | CASEMGMT ---
Assessment- SW completed assessment with patient and her at bedside. SW also verified phone numbers and addresses. Living situation- Patient lives with her in a 1 story home with a ramp entrance. PCP: Dr Harp Specialists: Dr Valencia-Pulmonology, Dr Mcclendon-Cardiology, and Dr Freeman-Nephrology Pharmacy: [facility] in [place] DME: wheeled walker, rollator, wheelchair, shower chair, ramp entrance, grab bars, bedside commode, O2 from [facility] at 3 1/2 L all the time, and patient said she just received a cpap machine yesterday from [facility]. ADL's/IADL's: Patient's helps her with bathing, he organizes her medications, he does all the cooking and cleaning, and he drives. Patient normally uses a walker at home, but a wheelchair in the community. Patient also does dialysis at home M,T, Th, and F, (through [facility]). Her also helps with this. Past SNF/rehab: None and per patient's she will never go to a penitentiary. Past HH: Yes. [facility] previously LW: Yes and it is on file at [facility] POA: Yes and it is on file at [facility]. Patient's Ilir is her healthcare POA Plan: Patient and her plan on patient going home at discharge. They agree to [facility] if it is recommended. SW did talk with both patient and her about Palliative Care, but they were not in agreement with a referral. SW suggested they talk with Dr Valencia about Palliative Care to see if he thinks it would be helpful. [place]/RN CM to continue to follow for d/c needs. Maci [employer]I [employer]
[2020-04-13 11:55] LABS: Bedside Glucose 153 mg/dL (70-110)
--- NOTE | 2020-04-13 12:43 | NURSING ---
Wound photo: left long finger
--- NOTE | 2020-04-13 14:46 | CASEMGMT ---
Therapy is recommending further therapy at this time and pt/ are agreeable at this time and would prefer [facility]. Call to Sussy at [facility] and referral given for SN, PT/OT. Sussy states she will call this RN CM back with acceptance. SStalbin RN CM
[2020-04-14] VITALS (18 sets, daily range): BP systolic 99–131; BP diastolic 38–77; PULSE 52–81; RESP 12–28; TEMP 36.3–37.1; O2SAT 96–100
[2020-04-14] MEDS: Heparin Injection (Vial) 5,000 UNIT/ML VIAL 5000 UNIT SC ×2 (06:25→20:49)
[2020-04-14] MEDS: Ipratropium/Albuterol Sulfate 3 ML AMPUL.NEB INHALATION ×5 (06:44→22:35)
[2020-04-14 06:47] LABS: Absolute Neutrophil Count 1.8 X10^3/uL (2.0-7.7); Basophil# 0.01 X10^3/uL; Basophil% 0.4 % (0-1); Eosinophil# 0.07 X10^3/uL; Eosinophils% 2.7 % (0-5); Hematocrit 35.3 % (37-47); Hemoglobin 9.9 g/dL (12.0-15.0); Lymphocyte % 15.2 % (19-41); Mean Corpuscular Hgb 30.5 pg (27.0-32.0); Mean Corpuscular Volume 108.6 fL (81-99); Mean Platelet Vol. 9.9 fl (6.2-12.0); Monocyte# 0.38 X10^3/uL; Monocyte% 14.4 % (0-10); NRBC Flagged by Analyzer 0 % (0-5); Neutrophil # 1.76 X10^3/uL (2.7-7.7); Neutrophil % 66.9 % (47-70); POSITIVE COUNT YES; POSITIVE DIFFERENTIAL YES; POSITIVE MORPHOLOGY YES; Platelet Count 89 K/mm3 (150-450); RBC Distribution Width CV 16.7 % (11.6-14.6); RBC Distribution Width SD 65.6 fl (35.1-43.9); Red Blood Count 3.25 M/mm3 (4.2-5.4); White Blood Count 2.6 K/mm3 (4.4-11.0)
[2020-04-14 07:01] LABS: Differential Indicated SCAN CRITERIA MET
[2020-04-14 07:08] LABS: Anion Gap 9 (5-15); BUN 18 mg/dL (7-18); BUN/Creat Ratio 3.7 RATIO (10-20); Calcium,Total 7.9 mg/dL (8.5-10.1); Chloride 99 mmol/L (98-107); Creatinine, Serum 4.82 mg/dL (0.55-1.02); EST Glomerular Filtration Rate 9 mL/min (>60); Est Glom Filt Rate - Afr Amer 11 mL/min (>60); Estimated Creatinine Clearance 9.49 ml/min; Glucose 89 mg/dL (74-106); Potassium 3.4 mmol/L (3.5-5.1); Sodium Level 136 mmol/L (136-145)
[2020-04-14 07:32] LABS: Anisocytosis 2+; Hypochromasia 2+; Macrocytosis 2+; Platelet Estimate MOD DEC (ADEQ); Poikilocytosis 1+
--- NOTE | 2020-04-14 07:44 | PCM.PN.PUL ---
Patient Problems: Active and Suspected Problems (Last Reviewed 04/12/20 @ 15:[address] Dariana Gusman, DO) Metabolic encephalopathy (Acute) Acute hypercapnic respiratory failure (Acute) ESRD (end stage renal disease) on dialysis (Acute) Subjective: Patient did okay overnight. Patient did wear BiPAP for short period of time. Patient reports she feels subjectively improved compared to previous. No dyspnea or chest pain is been reported. Patient was asking to go to the snack shop for a sweet treat. - Physical Exam Vitals/I&O's: Vital Signs Temp Pulse Resp BP Pulse Ox 36.7 C 61 18 130/68 H 100 04/14/20 04:30 04/14/20 07:38 04/14/20 06:44 04/14/20 04:30 04/14/20 06:44 Oxygen Flow Rate (L/min) 3 Oxygen Delivery Method Nasal Cannula Weight: 92.1 kg Body Mass Index (BMI) 34.0 Finger Stick Blood Glucose 500 Intake and Output for Last 24 Hours 04/12/20 04/13/20 04/14/20 23:59 23:59 23:59 Intake Total 665 / 665 1112 / 1112 120 / 120 Output Total 2400 / 2400 0 / 0 Balance 665 / 665 -1288 / -1288 120 / 120 General: Alert, Oriented x3, Cooperative, No apparent distress, Well developed, Well nourished, - - Obese. No conversational dyspnea. HEENT: Atraumatic, PERRLA, EOMI, Normocephalic, - - No scleral icterus or injection noted Oral: Moist Mucosa, No Gingival or Mucosal Lesions/ Ulcerations Neck: Supple, No JVD, No Nodes, Trachea Midline Lungs: No rhonchi, No wheeze, No rales, Diminished, - - Symmetric expansion. Cardiovascular: Normal S1, Normal S2, Bradycardic, No rub noted, No Gallop Abdomen: Bowel Sounds Present, Soft, Non Tender, Non-Distended, Obese Extremities: No clubbing, No cyanosis, Edema Skin: - - No change compared to previous Musculoskeletal: No Tenderness to Palpation of Joints or Extremities Lymphatic: No Cervical, Supraclavicular, or Inguinal Adenopathy Neurological: Cranial nerves II-XII grossly intact, Neuro grossly intact, Motor Exam 5/5 strength throughout Psych/Mental Status: Alert and oriented to time, place, person, mood and affect Laboratory Results 04/13/20 11:47: POC Glucose 153 H 04/14/20 06:15: WBC 2.6 L, RBC 3.25 L, Hgb 9.9 L, Hct 35.3 L, MCV 108.6 H, MCH 30.5, MCHC 28.0 L, RDW Std Deviation 65.6 H, RDW Coeff of Norma 16.7 H, Plt Count 89 L, MPV 9.9, Immature Gran % (Auto) 0.400, Neut % (Auto) 66.9, Lymph % (Auto) 15.2 L, [place] % (Auto) 14.4 H, Eos % (Auto) 2.7, Baso % (Auto) 0.4, Absolute Neuts (auto) 1.8 L, Absolute Lymphs (auto) 0.40 L, Nucleated RBC % 0, Diff Path Review February, Platelet Estimate MOD DEC, Hypochromasia 2+, Poikilocytosis 1+, Anisocytosis 2+, Macrocytosis 2+ 04/14/20 06:15: Sodium 136, Potassium 3.4 L, Chloride 99, Carbon Dioxide 28.0, Anion Gap 9, BUN 18, Creatinine 4.82 H, Estim Creat Clear Calc 9.49, Est GFR (MDRD) Af Amer 11 L, Est GFR (MDRD) Non-Af 9 L, BUN/Creatinine Ratio 3.7 L, Glucose 89, Calcium 7.9 L Current Medications Acetaminophen (Tylenol) 650 mg PO Q6H PRN PRN PRN Reason: PAIN 1-10/Temp > 100.7 F Al Hydroxide/Mg Hydroxide (Mylanta Ii) 30 ml PO Q6H PRN PRN PRN Reason: Gastric Burning Albuterol/Ipratropium (Duoneb) 3 ml INHALATION Q4H.RT [facility] Last Admin: 04/14/20 06:44 Dose: 3 ml Documented by: Amiodarone HCl (Cordarone) 100 mg PO MoWeFr@0800 [facility] Last Admin: 04/12/20 17:35 Dose: 100 mg Documented by: Aspirin (Aspirin) 325 mg PO BIDCM [facility] Last Admin: 04/13/20 17:43 Dose: 325 mg Documented by: Atorvastatin Calcium (Lipitor) 40 mg PO QHS [facility] Last Admin: 04/13/20 21:48 Dose: 40 mg Documented by: Calcitriol (Rocaltrol) 0.25 mcg PO DAILY [facility] Last Admin: 04/13/20 11:39 Dose: 0.25 mcg Documented by: Docusate Sodium (Colace) 200 mg PO BID PRN PRN PRN Reason: Constipation Escitalopram Oxalate (Lexapro) 10 mg PO DAILY [facility] Last Admin: 04/13/20 11:39 Dose: 10 mg Documented by: Heparin Sodium (Porcine) (Heparin Na) 5,000 unit SC Q8 [facility] Last Admin: 04/14/20 06:25 Dose: 5,000 unit Documented by: Ceftriaxone Sodium 2 gm/ (Sodium Chloride) 50 mls @ 100 mls/hr IV Q24 [facility] Last Infusion: 04/13/20 12:10 Dose: Infused Documented by: Insulin Glargine (Lantus (Bkc)) 20 units SC DAILY [facility] Last Admin: 04/13/20 11:48 Dose: 20 u Documented by: Ondansetron HCl (Zofran) 4 mg IV Q8H PRN PRN PRN Reason: Nausea Pantoprazole Sodium (Protonix) 40 mg PO DAILY [facility] Last Admin: 04/13/20 11:39 Dose: 40 mg Documented by: Sodium Chloride () 10 - 40 ml IV UD PRN PRN Reason: SALINE FLUSH Last Admin: 04/13/20 11:39 Dose: 10 ml Documented by: Clinical Impression(s) from Imaging Studies Chest X-Ray 04/13/20 05:55 IMPRESSION: Stable examination. Electronically Signed: Brett Arcos, at 9:00 EDT , Service support , Medical Necessity - Tobacco Use Smoking Status: Never smoker Tobacco Use: Non-smoker Assessment/Plan All Active Problems (Last Reviewed 04/12/20 @ 15:[address] Dariana Gusman DO) Metabolic encephalopathy (Acute) Acute hypercapnic respiratory failure (Acute) ESRD (end stage renal disease) on dialysis (Acute) Lethargy (Acute) JORGE (acute kidney injury) (Resolved) C. difficile diarrhea (Resolved) RECOMMENDATIONS: 1. Patient needs to wear BiPAP with sleep to avoid repeat hospitalization 2. Hemodialysis per nephrology, would consider volume removal 3. Keep saturations 88 to 92% 4. Walking oximetry prior to discharge 5. Likely okay to discontinue antibiotics at 48 hours if culture negative 6. Likely okay to discharge from a pulmonary perspective if tolerates IMPRESSIONS: 1. Acute on chronic combined respiratory failure Patient with severe restriction on previous pulmonary function testing and has a BNP greater than 3000. Chest x-ray appears to be improved after volume removal. Appears to be improving with BiPAP and volume removal. Patient does have significant cardiomegaly and this may be leading to blunting of the left costophrenic angle. If cultures negative, likely okay to discharge without antibiotic therapy. Do not believe steroids are necessary at this time. Clinical suspicion for a slow progression and hypercarbic respiratory failure secondary to noncompliance with INES therapy. Possible discharge later today from a pulmonary perspective if able to tolerate hemodialysis 2. Elevated troponin Clinical suspicion for supply demand mismatch. This is likely also the etiology of patient's minimally elevated lactate. Agree with checking echoes, but no indication for systemic anticoagulation from my perspective. 3. Morbid obesity/pancytopenia/untreated INES/ESRD/hypertension/hyperlipidemia/peripheral vascular disease/PAF/depression/crest syndrome Complicates care, management, recovery and prognosis. Despite extensive medical history and relatively poor prognosis secondary to noncompliance, patient does wish to remain a full code. Okay to continue with baseline medications from my perspective. Patient is not currently on anticoagulation secondary to a history of a head bleed Inpatient E&M: 70130 Subs Hosp L2
[2020-04-14 08:06] LABS: Base Excess 2 mmol/L (-2 to +2); Bicarbonate 27.8 mmol/L (22-26); PO2 90 mmHG (75-100); SO2 96 % (95-99); Total Carbon Dioxide 29 mmol/L; pCO2 54.8 mmHg (35-45); pH 7.31 (7.35-7.45)
[2020-04-14 08:11] LABS: Blood Gas Specimen Type ART; SITE R RADIAL
[2020-04-14 08:12] LABS: Allen Test POS; O2 Delivery Device Nasal Can
--- NOTE | 2020-04-14 09:10 | PCM.PN.HOSP ---
Patient Problems: Active and Suspected Problems (Last Reviewed 04/12/20 @ 15:[address] Dariana Gusman, DO) Metabolic encephalopathy (Acute) Acute hypercapnic respiratory failure (Acute) ESRD (end stage renal disease) on dialysis (Acute) Subjective: Feeling much better. Anxious to got home. On 3 L nasal cannula. Denies pain. No SOB. Mentation is back to baseline. Off NIV today. Vitals/I&O's: Vital Signs Temp Pulse Resp BP Pulse Ox 98.1 F 61 18 130/68 H 100 04/14/20 04:30 04/14/20 07:38 04/14/20 06:44 04/14/20 04:30 04/14/20 06:44 Oxygen Flow Rate (L/min) 3.5 Oxygen Delivery Method Nasal Cannula Weight: 92.1 kg Body Mass Index (BMI) 34.0 Finger Stick Blood Glucose 500 Intake and Output for Last 24 Hours 04/12/20 04/13/20 04/14/20 23:59 23:59 23:59 Intake Total 665 / 665 1112 / 1112 120 / 120 Output Total 2400 / 2400 0 / 0 Balance 665 / 665 -1288 / -1288 120 / 120 General: Alert, Oriented x3, Well developed, Well nourished, - - Obese WF sitting up in chair watching TV, appears comfortable HEENT: Atraumatic, PERRLA, EOMI, Normocephalic, EAC Clear Oral: Moist Mucosa, No Gingival or Mucosal Lesions/ Ulcerations, - - no thrush Neck: Supple, No Nodes, Trachea Midline, Thyroid Normal Size and Texture Lungs: Clear to auscultation, No rhonchi, No wheeze, No rales, Diminished - diffusely Cardiovascular: Regular rate, Regular Rhythm, Normal S1, Normal S2, No Ectopic Activity, Murmur, No rub noted, No Gallop Abdomen: Bowel Sounds Present, Soft, Non Tender, Non-Distended, Obese, No hernias noted Extremities: No clubbing, No cyanosis, Edema - Trace B LE Skin: No rashes, No breakdown, - - L Fistula, forearm, with thrill Musculoskeletal: No Tenderness to Palpation of Joints or Extremities, No Muscle Wasting, Arthritic Changes Lymphatic: No Cervical, Supraclavicular, or Inguinal Adenopathy Neurological: Cranial nerves II-XII grossly intact, Neuro grossly intact, Muscle tone normal, Coordination normal Psych/Mental Status: Normal Affect, Appropriate, Alert and oriented to time, place, person, mood and affect Laboratory Results 04/13/20 11:47: POC Glucose 153 H 04/14/20 06:15: WBC 2.6 L, RBC 3.25 L, Hgb 9.9 L, Hct 35.3 L, MCV 108.6 H, MCH 30.5, MCHC 28.0 L, RDW Std Deviation 65.6 H, RDW Coeff of Norma 16.7 H, Plt Count 89 L, MPV 9.9, Immature Gran % (Auto) 0.400, Neut % (Auto) 66.9, Lymph % (Auto) 15.2 L, [place] % (Auto) 14.4 H, Eos % (Auto) 2.7, Baso % (Auto) 0.4, Absolute Neuts (auto) 1.8 L, Absolute Lymphs (auto) 0.40 L, Nucleated RBC % 0, Diff Path Review May , Platelet Estimate MOD DEC, Hypochromasia 2+, Poikilocytosis 1+, Anisocytosis 2+, Macrocytosis 2+ 04/14/20 06:15: Sodium 136, Potassium 3.4 L, Chloride 99, Carbon Dioxide 28.0, Anion Gap 9, BUN 18, Creatinine 4.82 H, Estim Creat Clear Calc 9.49, Est GFR (MDRD) Af Amer 11 L, Est GFR (MDRD) Non-Af 9 L, BUN/Creatinine Ratio 3.7 L, Glucose 89, Calcium 7.9 L 04/14/20 07:40: Specimen Type ART, Sample Site R RADIAL, pH 7.31 L, Bicarbonate Actual 27.8 H, POC Total CO2 29, Base Excess 2, O2 Saturation 96, ABG pCO2 54.8 H, ABG pO2 90, Johnny Test POS, O2 Delivery Device Nasal Can, Liter Flow 3.0 Current Medications Acetaminophen (Tylenol) 650 mg PO Q6H PRN PRN PRN Reason: PAIN 1-10/Temp > 100.7 F Al Hydroxide/Mg Hydroxide (Mylanta Ii) 30 ml PO Q6H PRN PRN PRN Reason: Gastric Burning Albuterol/Ipratropium (Duoneb) 3 ml INHALATION Q4H.RT [facility] Last Admin: 04/14/20 06:44 Dose: 3 ml Documented by: Amiodarone HCl (Cordarone) 100 mg PO MoWeFr@0800 [facility] Last Admin: 04/12/20 17:35 Dose: 100 mg Documented by: Aspirin (Aspirin) 325 mg PO BIDCM [facility] Last Admin: 04/13/20 17:43 Dose: 325 mg Documented by: Atorvastatin Calcium (Lipitor) 40 mg PO QHS [facility] Last Admin: 04/13/20 21:48 Dose: 40 mg Documented by: Calcitriol (Rocaltrol) 0.25 mcg PO DAILY [facility] Last Admin: 04/13/20 11:39 Dose: 0.25 mcg Documented by: Docusate Sodium (Colace) 200 mg PO BID PRN PRN PRN Reason: Constipation Escitalopram Oxalate (Lexapro) 10 mg PO DAILY [facility] Last Admin: 04/13/20 11:39 Dose: 10 mg Documented by: Heparin Sodium (Porcine) (Heparin Na) 5,000 unit SC Q8 [facility] Last Admin: 04/14/20 06:25 Dose: 5,000 unit Documented by: Ceftriaxone Sodium 2 gm/ (Sodium Chloride) 50 mls @ 100 mls/hr IV Q24 [facility] Last Infusion: 04/13/20 12:10 Dose: Infused Documented by: Insulin Glargine (Lantus (Bkc)) 20 units SC DAILY [facility] Last Admin: 04/13/20 11:48 Dose: 20 u Documented by: Ondansetron HCl (Zofran) 4 mg IV Q8H PRN PRN PRN Reason: Nausea Pantoprazole Sodium (Protonix) 40 mg PO DAILY [facility] Last Admin: 04/13/20 11:39 Dose: 40 mg Documented by: Sodium Chloride () 10 - 40 ml IV UD PRN PRN Reason: SALINE FLUSH Last Admin: 04/13/20 11:39 Dose: 10 ml Documented by: STROKE Vital Signs/Narrative: Vital Signs Pulse Resp Pulse Ox 04/14/20 07:38 61 04/14/20 06:44 63 18 100 04/14/20 05:43 55 L Medical Necessity - Tobacco Use Smoking Status: Never smoker Tobacco Use: Non-smoker Assessment/Plan All Active Problems (Last Reviewed 04/12/20 @ 15:[address] Dariana Gusman DO) Metabolic encephalopathy (Acute) Acute hypercapnic respiratory failure (Acute) ESRD (end stage renal disease) on dialysis (Acute) Lethargy (Acute) JORGE (acute kidney injury) (Resolved) C. difficile diarrhea (Resolved) Acute Hypercapnic on Chronic Hypoxic Respiratory Failure--> suspect multifactorial (HFpEF/COPD/INES/OHS) -pt wears 3 L n/c at baseline -ABG in ED showed pH of 7.2 with PCO2 72.4/PO2 of 95 -ABG stable -ok to come off NIV during the day today -repeat ABG prior to going on NIV tonight -pt has no ability to compensate for hypercapnia via kidneys--> HD dependent -pt is a never smoker -d/c abx -CXR better today -pulm toilet -Pulm following--> Pt follows with Dr. Valencia as outpt -d/w Dr. Valencia L Pleural Effusion -US to quantify -? thora Troponin Elevation -suspect demand ischemia -troponin trending down -ECHO with EF 65%, mod-severe mitral annular calcification, mild to mod MS, Mod CO, moderate TI, Mild -EKG without ST-T wave changes Lactic Acidosis -suspect resolved with HD Pancytopenia -mild white count depression -stable -hgb stable/plts stable -trend counts INES -untreated as pt has refused nocturnal BIPAP therapy as recommended -strongly encouraged ESRD -HD per Dr. Vu -Nephro consulted -HD is TRFSat -due for HD today -no further Lasix at d/c Bradycardia -has been an issue and HR in 50 and 60's -only med that could precipitate is amio -was to have a holter ordered by Dr. Mcclendon to start today but was sent to ED for MS instead -TSH WNL -will need to get rescheduled for Holter after d/c -tele Metabolic Encephalopathy -resolved HTN/HPL/PVD -continue ASA/Lipitor PAF -amiodarone -no OAC with h/o head bleed -on ASA full dose BID -NSR Depression -continue Lexapro CREST Syndrome -stable L Index finger wound -follows at wound care -healing well -consult wound care -no s/o infection Obesity -recommend wgt loss DVT prophylaxis -heparin TID Code Status -FULL Inpatient E&M: 54885 [facility] Hosp L3
[2020-04-14] MEDS: Calcitriol 0.25 MCG Capsule PO (09:15)
[2020-04-14] MEDS: Pantoprazole Sodium 40 MG Tablet PO (09:15)
[2020-04-14] MEDS: Amiodarone 200 MG Tablet 100 MG PO (09:15)
[2020-04-14] MEDS: Escitalopram Oxalate 10 MG Tablet PO (09:15)
[2020-04-14] MEDS: Aspirin 325 MG Tablet PO ×2 (09:15→17:47)
--- NOTE | 2020-04-14 09:19 | US_ITS ---
STUDY: SUPERFICIAL ULTRASOUND - CHEST REASON FOR EXAM: Female, 74 years old. EVAL for [address] EFFUSION TECHNIQUE: A superficial ultrasound was performed with real-time and static hui-scale imaging. COMPARISON: Chest, April 13, 2020. FINDINGS: The [id number] chest were scanned sonographically for possible thoracentesis. There is no visualized fluid within the cavities. US/Chest IMPRESSION: No evidence of pleural fluid Electronically Signed: Jordin Polk DO at 21:34 EDT Tel [phone], Service support ,
--- NOTE | 2020-04-14 11:33 | CASEMGMT ---
Addendum entered by Maggy Metcalf 04/14/20 16:17: George Swanson @ [facility], if pt is discharged today or tomorrow 04/15, start of care will be Friday. Original Note: ELI STARR NOTE: [facility] able to accept pt. Sarbjit CAMPBELL RN, CM
--- NOTE | 2020-04-14 13:43 | PCM.PN.REN ---
Patient Problems: Active and Suspected Problems (Last Reviewed 04/12/20 @ 15:[address] Dariana Gusman, DO) Metabolic encephalopathy (Acute) Acute hypercapnic respiratory failure (Acute) ESRD (end stage renal disease) on dialysis (Acute) Subjective: more alert today - Physical Exam Vitals/I&O's: Vital Signs Temp Pulse Resp BP Pulse Ox 97.4 F L 59 L 17 99/50 L 100 04/14/20 13:00 04/14/20 13:00 04/14/20 13:00 04/14/20 13:00 04/14/20 13:00 Oxygen Flow Rate (L/min) 3 Oxygen Delivery Method Nasal Cannula Weight: 92.1 kg Body Mass Index (BMI) 34.0 Finger Stick Blood Glucose 500 Intake and Output for Last 24 Hours 04/12/20 04/13/20 04/14/20 23:59 23:59 23:59 Intake Total 665 / 665 1112 / 1112 120 / 120 Output Total 2400 / 2400 3000 / 3000 Balance 665 / 665 -1288 / -1288 -2880 / -2880 General: Alert, Oriented x3, Cooperative HEENT: Atraumatic, PERRLA, EOMI, Normocephalic Neck: Supple, No JVD, Negative Carotid Bruits Lungs: Clear to auscultation, Normal air movement Cardiovascular: Regular rate, No murmurs Abdomen: Bowel Sounds Present, Soft, Non Tender Extremities: No edema, Capillary Refill Less than 3 Seconds Skin: No rashes, No breakdown Musculoskeletal: No Tenderness to Palpation of Joints or Extremities Neurological: Cranial nerves II-XII grossly intact Psych/Mental Status: Normal Affect, Appropriate Microbiology Past 72 Hours 04/12/20 11:10 Blood Culture (Wb) - Anticubital Right Blood Culture - Preliminary No growth in 48 hours. 04/12/20 10:52 Blood Culture (Wb) - Anticubital Right Blood Culture - Preliminary No growth in 48 hours. Laboratory Results 04/14/20 06:15: WBC 2.6 L, RBC 3.25 L, Hgb 9.9 L, Hct 35.3 L, MCV 108.6 H, MCH 30.5, MCHC 28.0 L, RDW Std Deviation 65.6 H, RDW Coeff of Norma 16.7 H, Plt Count 89 L, MPV 9.9, Immature Gran % (Auto) 0.400, Neut % (Auto) 66.9, Lymph % (Auto) 15.2 L, [place] % (Auto) 14.4 H, Eos % (Auto) 2.7, Baso % (Auto) 0.4, Absolute Neuts (auto) 1.8 L, Absolute Lymphs (auto) 0.40 L, Nucleated RBC % 0, Diff Path Review May foll, Platelet Estimate MOD DEC, Hypochromasia 2+, Poikilocytosis 1+, Anisocytosis 2+, Macrocytosis 2+ 04/14/20 06:15: Sodium 136, Potassium 3.4 L, Chloride 99, Carbon Dioxide 28.0, Anion Gap 9, BUN 18, Creatinine 4.82 H, Estim Creat Clear Calc 9.49, Est GFR (MDRD) Af Amer 11 L, Est GFR (MDRD) Non-Af 9 L, BUN/Creatinine Ratio 3.7 L, Glucose 89, Calcium 7.9 L 04/14/20 07:40: Specimen Type ART, Sample Site R RADIAL, pH 7.31 L, Bicarbonate Actual 27.8 H, POC Total CO2 29, Base Excess 2, O2 Saturation 96, ABG pCO2 54.8 H, ABG pO2 90, Johnny Test POS, O2 Delivery Device Nasal Can, Liter Flow 3.0 Current Medications Acetaminophen (Tylenol) 650 mg PO Q6H PRN PRN PRN Reason: PAIN 1-10/Temp > 100.7 F Al Hydroxide/Mg Hydroxide (Mylanta Ii) 30 ml PO Q6H PRN PRN PRN Reason: Gastric Burning Albuterol/Ipratropium (Duoneb) 3 ml INHALATION Q4H.RT [facility] Last Admin: 04/14/20 11:42 Dose: 3 ml Documented by: Amiodarone HCl (Cordarone) 100 mg PO MoWeFr@0800 [facility] Last Admin: 04/14/20 09:15 Dose: 100 mg Documented by: Aspirin (Aspirin) 325 mg PO BIDCM [facility] Last Admin: 04/14/20 09:15 Dose: 325 mg Documented by: Atorvastatin Calcium (Lipitor) 40 mg PO QHS [facility] Last Admin: 04/13/20 21:48 Dose: 40 mg Documented by: Calcitriol (Rocaltrol) 0.25 mcg PO DAILY [facility] Last Admin: 04/14/20 09:15 Dose: 0.25 mcg Documented by: Docusate Sodium (Colace) 200 mg PO BID PRN PRN PRN Reason: Constipation Escitalopram Oxalate (Lexapro) 10 mg PO DAILY [facility] Last Admin: 04/14/20 09:15 Dose: 10 mg Documented by: Heparin Sodium (Porcine) (Heparin Na) 5,000 unit SC Q8 [facility] Last Admin: 04/14/20 06:25 Dose: 5,000 unit Documented by: Insulin Glargine (Lantus (Bkc)) 20 units SC DAILY [facility] Last Admin: 04/14/20 09:41 Dose: 20 u Documented by: Ondansetron HCl (Zofran) 4 mg IV Q8H PRN PRN PRN Reason: Nausea Pantoprazole Sodium (Protonix) 40 mg PO DAILY [facility] Last Admin: 04/14/20 09:15 Dose: 40 mg Documented by: Sodium Chloride () 10 - 40 ml IV UD PRN PRN Reason: SALINE FLUSH Last Admin: 04/13/20 11:39 Dose: 10 ml Documented by: Medical Necessity - Tobacco Use Smoking Status: Never smoker Tobacco Use: Non-smoker Assessment/Plan All Active Problems (Last Reviewed 04/12/20 @ 15:[address] Dariana Gusman, DO) Metabolic encephalopathy (Acute) Acute hypercapnic respiratory failure (Acute) ESRD (end stage renal disease) on dialysis (Acute) Lethargy (Acute) JORGE (acute kidney injury) (Resolved) C. difficile diarrhea (Resolved) ESRD. seen on HD today. more alert. Lethargy. labs consistent with respiratory acidosis. better now anemia. gets long acting TEZ with HD
--- NOTE | 2020-04-14 14:51 | DIALYSIS ---
3.5 hr hemodialysis complete. pt tolerated well. net uf 3000ml. pt stable. vss. lfa fistula +thrill/bruit, needles pulled pressure held x 4 mins. stasis complete.
--- NOTE | 2020-04-14 15:19 | CPS ---
04/12/20 1549 ABG drawn on following bipap settings 16/ rate of 12,fio2 28%
[2020-04-14 17:05] LABS: Allen Test POS; O2 Delivery Device Bi Pap; SITE R RADIAL
[2020-04-14 17:06] LABS: EPAP 6; FI02 28; IPAP 16; RR 12
[2020-04-14] MEDS: Atorvastatin Calcium 40 MG Tablet PO (20:49)
[2020-04-15] VITALS (8 sets, daily range): BP systolic 108–136; BP diastolic 41–46; PULSE 57–72; RESP 12–26; TEMP 36.8; O2SAT 96–100
[2020-04-15 02:37] LABS: Allen Test POS; Blood Gas Specimen Type ART; O2 Delivery Device Nasal Can; SITE L RADIAL
[2020-04-15 02:41] LABS: Base Excess 4 mmol/L (-2 to +2); Bicarbonate 29.8 mmol/L (22-26); PO2 126 mmHG (75-100); Time Given 2255; Total Carbon Dioxide 31 mmol/L; pCO2 54.6 mmHg (35-45); pH 7.35 (7.35-7.45)
[2020-04-15 02:42] LABS: SO2 99 % (95-99)
[2020-04-15] MEDS: Ipratropium/Albuterol Sulfate 3 ML AMPUL.NEB INHALATION ×2 (03:05→07:21)
[2020-04-15] MEDS: Heparin Injection (Vial) 5,000 UNIT/ML VIAL 5000 UNIT SC (06:11)
[2020-04-15 06:46] LABS: Absolute Lymphocyte Count 0.39 X10^3/uL (0.83-4.51); Basophil# 0.01 X10^3/uL; Basophil% 0.3 % (0-1); Eosinophil# 0.06 X10^3/uL; Eosinophils% 2.1 % (0-5); Hematocrit 36.5 % (37-47); Hemoglobin 10.3 g/dL (12.0-15.0); Lymphocyte # 0.39 X10^3/ul (4.0); Lymphocyte % 13.4 % (19-41); Mean Corp Hgb Conc 28.2 g/dL (32-36); Mean Corpuscular Hgb 30.6 pg (27.0-32.0); Mean Corpuscular Volume 108.3 fL (81-99); Monocyte# 0.44 X10^3/uL; Monocyte% 15.1 % (0-10); NRBC Flagged by Analyzer 0 % (0-5); Neutrophil # 2.01 X10^3/uL (2.7-7.7); Neutrophil % 69.1 % (47-70); POSITIVE COUNT YES; POSITIVE DIFFERENTIAL YES; Platelet Count 86 K/mm3 (150-450); RBC Distribution Width CV 16.2 % (11.6-14.6); RBC Distribution Width SD 64.9 fl (35.1-43.9); Red Blood Count 3.37 M/mm3 (4.2-5.4); White Blood Count 2.9 K/mm3 (4.4-11.0)
[2020-04-15 06:49] LABS: Differential Indicated SCAN CRITERIA MET
--- NOTE | 2020-04-15 07:28 | PN_ITS ---
Patient Problems: Active and Suspected Problems (Last Reviewed 04/12/20 @ 15:[address] Dariana Gusman, DO) Metabolic encephalopathy (Acute) Acute hypercapnic respiratory failure (Acute) ESRD (end stage renal disease) on dialysis (Acute) Subjective: Patient did well overnight. Patient did use BiPAP therapy while sleeping. Patient feels subjectively improved compared to yesterday, but still has some dyspnea on exertion to the bathroom. - Physical Exam Vitals/I&O's: Vital Signs Temp Pulse Resp BP Pulse Ox 36.8 C 60 26 H 108/46 L 96 04/15/20 03:00 04/15/20 03:05 04/15/20 03:05 04/15/20 03:00 04/15/20 03:05 Oxygen Flow Rate (L/min) 3 Oxygen Delivery Method Bi-pap Weight: 88.6 kg Body Mass Index (BMI) 34.0 Finger Stick Blood Glucose 500 Intake and Output for Last 24 Hours 04/13/20 04/14/20 04/15/20 23:59 23:59 23:59 Intake Total 1112 / 1112 360 / 360 Output Total 2400 / 2400 3000 / 3000 0 / 0 Balance -1288 / -1288 -2640 / -2640 0 / 0 General: Alert, Oriented x3, Cooperative, No apparent distress, - - Obese. Speaking in full sentences. HEENT: Atraumatic, PERRLA, EOMI, Normocephalic, - - No scleral icterus or injection noted Oral: Moist Mucosa, No Gingival or Mucosal Lesions/ Ulcerations Neck: Supple, No JVD, No Nodes, Trachea Midline Lungs: No rhonchi, No wheeze, Diminished, Rales - Bilateral bases, - - Symmetric expansion Cardiovascular: Normal S1, Normal S2, No murmurs, Bradycardic, No rub noted, No Gallop Abdomen: Bowel Sounds Present, Soft, Non Tender, Non-Distended, Obese Extremities: No cyanosis, Edema Skin: - - No change from previous Musculoskeletal: No Tenderness to Palpation of Joints or Extremities Lymphatic: No Cervical, Supraclavicular, or Inguinal Adenopathy Neurological: Cranial nerves II-XII grossly intact, Neuro grossly intact, Motor Exam 5/5 strength throughout Psych/Mental Status: Alert and oriented to time, place, person, mood and affect Microbiology Past 72 Hours 04/12/20 11:10 Blood Culture (Wb) - Anticubital Right Blood Culture - Preliminary No growth in 48 hours. 04/12/20 10:52 Blood Culture (Wb) - Anticubital Right Blood Culture - Preliminary No growth in 48 hours. Laboratory Results 04/12/20 15:17: Sample Site R RADIAL, O2 % 28, Johnny Test POS, Respiration Rate 12, O2 Delivery Device Bi Pap, EPAP 6, IPAP 16 04/14/20 06:15: Diff Path Review February foll, Platelet Estimate MOD DEC, Hypochromasia 2+, Poikilocytosis 1+, Anisocytosis 2+, Macrocytosis 2+ 04/14/20 07:40: Specimen Type ART, Sample Site R RADIAL, pH 7.31 L, Bicarbonate Actual 27.8 H, POC Total CO2 29, Base Excess 2, O2 Saturation 96, ABG pCO2 54.8 H, ABG pO2 90, Johnny Test POS, O2 Delivery Device Nasal Can, Liter Flow 3.0 04/14/20 22:55: Specimen Type ART, Sample Site L RADIAL, pH 7.35, Bicarbonate Actual 29.8 H, POC Total CO2 31, Base Excess 4 H, O2 Saturation 99, ABG pCO2 54.6 H, ABG pO2 126 H, Johnny Test POS, O2 Delivery Device Nasal Can, Liter Flow 3.0, Blood Gas Notified Whom [facility]RISTIANO LOONEY, Blood Gas Notified Time 6167 04/15/20 06:25: WBC 2.9 L, RBC 3.37 L, Hgb 10.3 L, Hct 36.5 L, MCV 108.3 H, MCH 30.6, MCHC 28.2 L, RDW Std Deviation 64.9 H, RDW Coeff of Norma 16.2 H, Plt Count 86 L, MPV 10.0, Immature Gran % (Auto) 0.000, Neut % (Auto) 69.1, Lymph % (Auto) 13.4 L, [place] % (Auto) 15.1 H, Eos % (Auto) 2.1, Baso % (Auto) 0.3, Absolute Neuts (auto) 2.0, Absolute Lymphs (auto) 0.39 L, Nucleated RBC % 0 04/15/20 06:25: Sodium Pending, Potassium Pending, Chloride Pending, Carbon Dioxide Pending, Anion Gap Pending, BUN Pending, Creatinine Pending, Est GFR (MDRD) Af Amer Pending, Est GFR (MDRD) Non-Af Pending, BUN/Creatinine Ratio Pending, Glucose Pending, Calcium Pending Current Medications Acetaminophen (Tylenol) 650 mg PO Q6H PRN PRN PRN Reason: PAIN 1-10/Temp > 100.7 F Al Hydroxide/Mg Hydroxide (Mylanta Ii) 30 ml PO Q6H PRN PRN PRN Reason: Gastric Burning Albuterol/Ipratropium (Duoneb) 3 ml INHALATION Q4H.RT [facility] Last Admin: 04/15/20 07:21 Dose: 3 ml Documented by: Amiodarone HCl (Cordarone) 100 mg PO MoWeFr@0800 [facility] Last Admin: 04/14/20 09:15 Dose: 100 mg Documented by: Aspirin (Aspirin) 325 mg PO BIDCM [facility] Last Admin: 04/14/20 17:47 Dose: 325 mg Documented by: Atorvastatin Calcium (Lipitor) 40 mg PO QHS [facility] Last Admin: 04/14/20 20:49 Dose: 40 mg Documented by: Calcitriol (Rocaltrol) 0.25 mcg PO DAILY [facility] Last Admin: 04/14/20 09:15 Dose: 0.25 mcg Documented by: Docusate Sodium (Colace) 200 mg PO BID PRN PRN PRN Reason: Constipation Escitalopram Oxalate (Lexapro) 10 mg PO DAILY [facility] Last Admin: 04/14/20 09:15 Dose: 10 mg Documented by: Heparin Sodium (Porcine) (Heparin Na) 5,000 unit SC Q8 [facility] Last Admin: 04/15/20 06:11 Dose: 5,000 unit Documented by: Insulin Glargine (Lantus (Bkc)) 20 units SC DAILY [facility] Last Admin: 04/14/20 09:41 Dose: 20 u Documented by: Ondansetron HCl (Zofran) 4 mg IV Q8H PRN PRN PRN Reason: Nausea Pantoprazole Sodium (Protonix) 40 mg PO DAILY [facility] Last Admin: 04/14/20 09:15 Dose: 40 mg Documented by: Sodium Chloride () 10 - 40 ml IV UD PRN PRN Reason: SALINE FLUSH Last Admin: 04/13/20 11:39 Dose: 10 ml Documented by: Clinical Impression(s) from Imaging Studies Chest Ultrasound 04/14/20 09:19 IMPRESSION: No evidence of pleural fluid Electronically Signed: Jordin JamDO at 21:34 EDT Tel [phone], Service support , Medical Necessity - Tobacco Use Smoking Status: Never smoker Tobacco Use: Non-smoker Assessment/Plan All Active Problems (Last Reviewed 04/12/20 @ 15:[address] Dariana Gusman DO) Metabolic encephalopathy (Acute) Acute hypercapnic respiratory failure (Acute) ESRD (end stage renal disease) on dialysis (Acute) Lethargy (Acute) JORGE (acute kidney injury) (Resolved) C. difficile diarrhea (Resolved) RECOMMENDATIONS: 1. Patient needs to wear BiPAP with sleep to avoid repeat hospitalization 2. Hemodialysis per nephrology 3. Keep saturations 88 to 92% 4. Walking oximetry prior to discharge 5. Okay to discharge from a pulmonary perspective if able to tolerate ambulation on 6 L or less 6. Patient can follow-up with pulmonary at previously planned routine appointment IMPRESSIONS: 1. Acute on chronic combined respiratory failure Patient with severe restriction on previous pulmonary function testing and has a BNP greater than 3000. Chest x-ray appears to be improved after volume removal. Appears to be improving with BiPAP and volume removal. Patient does have significant cardiomegaly and this may be leading to blunting of the left costophrenic angle. Chest ultrasound shows no significant pleural effusion. Do not believe steroids are necessary at this time. Clinical suspicion for a slow progression and hypercarbic respiratory failure secondary to noncompliance with INES therapy. Continue to stressed to patient the importance of compliance with INES therapy to avoid future complications. Patient appears to be pre- contemplative, but will use her machine during the hospital stay. 2. Elevated troponin Clinical suspicion for supply demand mismatch. This is likely also the etiology of patient's minimally elevated lactate. Agree with checking echoes, but no indication for systemic anticoagulation from my perspective. 3. Morbid obesity/pancytopenia/untreated INES/ESRD/hypertension/hyperlipidemia/peripheral vascular disease/PAF/depression/crest syndrome Complicates care, management, recovery and prognosis. Despite extensive medical history and relatively poor prognosis secondary to noncompliance, patient does wish to remain a full code. Okay to continue with baseline medications from my perspective. Patient is not currently on anticoagulation secondary to a history of a head bleed Inpatient E&M: 67587 Subs Hosp L2
[2020-04-15] MEDS: Acetaminophen 325 MG Tablet 650 MG PO (07:56)
[2020-04-15] MEDS: Aspirin 325 MG Tablet PO (07:58)
--- NOTE | 2020-04-15 08:25 | DCINST_ITS ---
- Discharge Diagnoses Current Active Problems: Current Active and Chronic Problems (Last Reviewed 04/12/20 @ 15:[address] Dariana Gusman DO) Metabolic encephalopathy (Acute) Acute hypercapnic respiratory failure (Acute) Chronic hypoxemic respiratory failure (Chronic) ESRD (end stage renal disease) on dialysis (Acute) You will use the following diet at home:: Calorie/Carbohydrate Controlled (specify 1200, 1400, etc), Cardiac Your food should be the consistency of: Regular Your liquids should be the consistency of: Regular/Thin Discharge Activity: Return to Normal Activity, No Restrictions Call your doctor if you observe: Fever of 101 or Higher, Shortness of breath, Chest pain Allergies/Adverse Reactions: Allergies No Known Allergies Allergy (Verified 04/12/20 10:13) Medications to take at Discharge pantoprazole 40 mg tablet,delayed release 40 mg PO DAILY 04/06/18 calcitriol 0.25 mcg capsule 0.25 mcg PO DAILY 09/09/18 Acetaminophen [Tylenol Tablet] 650 mg PO Q6H PRN PRN tab 11/15/18 aspirin 325 mg tablet 325 mg PO BID tab 02/23/19 escitalopram oxalate 10 mg tablet 10 mg PO DAILY 02/23/19 Atorvastatin Calcium [Lipitor] 40 mg PO DAILY 06/21/19 insulin glargine 100 unit/mL subcutaneous solution 20 unit SC DAILY ml 01/31/20 potassium chloride 20 mEq tablet,extended release(part/cryst) 20 meq PO BID tab 01/31/20 Nystatin Powder [Mycostatin Powder] 1 applic TOPICAL BID 04/12/20 amiodarone 200 mg tablet 100 mg PO .mwf tab 04/12/20 Primary Care Physician: Zeenat Harp MD [Primary Care Provider] - Test Results: Test results from this visit will be discussed in further detail at your follow- up appointment, if applicable.
[2020-04-15 08:26] LABS: Anion Gap 9 (5-15); BUN 13 mg/dL (7-18); BUN/Creat Ratio 3.6 RATIO (10-20); Calcium,Total 7.7 mg/dL (8.5-10.1); Chloride 100 mmol/L (98-107); Creatinine, Serum 3.62 mg/dL (0.55-1.02); EST Glomerular Filtration Rate 13 mL/min (>60); Est Glom Filt Rate - Afr Amer 16 mL/min (>60); Estimated Creatinine Clearance 12.64 ml/min; Glucose 78 mg/dL (74-106); Potassium 3.6 mmol/L (3.5-5.1); Sodium Level 136 mmol/L (136-145)
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
--- NOTE | 2020-04-15 08:44 | PCA ---
Addendum entered by Venessa Vera 04/15/20 09:22: Discharge paperwork faxed to [facility], [phone], and spoke with promotional representative RN and notified her of discharge plan for today. Original Note: Per Jodi, pharmacy scheduler at 's office, family needs to call to schedule apt because is out of the office and family is very particular about who they see.
--- NOTE | 2020-04-15 08:48 | PN.RENAL_ITS ---
Patient Problems: Active and Suspected Problems (Last Reviewed 04/12/20 @ 15:[address] Dariana Gusman, DO) Metabolic encephalopathy (Acute) Acute hypercapnic respiratory failure (Acute) ESRD (end stage renal disease) on dialysis (Acute) Subjective: Following for ESRD. Pt denies CP, SOB or nausea. Going home today. - Physical Exam Vitals/I&O's: Vital Signs Temp Pulse Resp BP Pulse Ox 98.3 F 66 18 108/46 L 98 04/15/20 03:00 04/15/20 07:21 04/15/20 07:21 04/15/20 03:00 04/15/20 07:21 Oxygen Flow Rate (L/min) 3 Oxygen Delivery Method Nasal Cannula Weight: 88.6 kg Body Mass Index (BMI) 34.0 Finger Stick Blood Glucose 500 Intake and Output for Last 24 Hours 04/13/20 04/14/20 04/15/20 23:59 23:59 23:59 Intake Total 1112 / 1112 360 / 360 Output Total 2400 / 2400 3000 / 3000 0 / 0 Balance -1288 / -1288 -2640 / -2640 0 / 0 General: Alert, Oriented x3 HEENT: Atraumatic, EOMI Oral: Moist Mucosa Neck: Supple Lungs: Clear to auscultation Cardiovascular: Regular rate, Normal S1, Normal S2 Abdomen: Bowel Sounds Present, Soft, Non Tender Extremities: No edema Microbiology Past 72 Hours 04/12/20 11:10 Blood Culture (Wb) - Anticubital Right Blood Culture - Preliminary No growth in 48 hours. 04/12/20 10:52 Blood Culture (Wb) - Anticubital Right Blood Culture - Preliminary No growth in 48 hours. Laboratory Results 04/12/20 15:17: Sample Site R RADIAL, O2 % 28, Johnny Test POS, Respiration Rate 12, O2 Delivery Device Bi Pap, EPAP 6, IPAP 16 04/14/20 22:55: Specimen Type ART, Sample Site L RADIAL, pH 7.35, Bicarbonate Actual 29.8 H, POC Total CO2 31, Base Excess 4 H, O2 Saturation 99, ABG pCO2 54.6 H, ABG pO2 126 H, Johnny Test POS, O2 Delivery Device Nasal Can, Liter Flow 3.0, Blood Gas Notified Whom CHRISTIANO LOONEY, Blood Gas Notified Time 7966 04/15/20 06:25: WBC 2.9 L, RBC 3.37 L, Hgb 10.3 L, Hct 36.5 L, MCV 108.3 H, MCH 30.6, MCHC 28.2 L, RDW Std Deviation 64.9 H, RDW Coeff of Norma 16.2 H, Plt Count 86 L, MPV 10.0, Immature Gran % (Auto) 0.000, Neut % (Auto) 69.1, Lymph % (Auto) 13.4 L, [place] % (Auto) 15.1 H, Eos % (Auto) 2.1, Baso % (Auto) 0.3, Absolute Neuts (auto) 2.0, Absolute Lymphs (auto) 0.39 L, Nucleated RBC % 0, Differential Comment , Diff Path Review February04/15/20 06:25: Sodium 136, Potassium 3.6, Chloride 100, Carbon Dioxide 27.0, Anion Gap 9, BUN 13, Creatinine 3.62 H, Estim Creat Clear Calc 12.64, Est GFR (MDRD) Af Amer 16 L, Est GFR (MDRD) Non-Af 13 L, BUN/Creatinine Ratio 3.6 L, Glucose 78, Calcium 7.7 L Current Medications Acetaminophen (Tylenol) 650 mg PO Q6H PRN PRN PRN Reason: PAIN 1-10/Temp > 100.7 F Last Admin: 04/15/20 07:56 Dose: 650 mg Documented by: Al Hydroxide/Mg Hydroxide (Mylanta Ii) 30 ml PO Q6H PRN PRN PRN Reason: Gastric Burning Albuterol/Ipratropium (Duoneb) 3 ml INHALATION Q4H.RT [facility] Last Admin: 04/15/20 07:21 Dose: 3 ml Documented by: Amiodarone HCl (Cordarone) 100 mg PO MoWeFr@0800 [facility] Last Admin: 04/14/20 09:15 Dose: 100 mg Documented by: Aspirin (Aspirin) 325 mg PO BIDCM [facility] Last Admin: 04/15/20 07:58 Dose: 325 mg Documented by: Atorvastatin Calcium (Lipitor) 40 mg PO QHS [facility] Last Admin: 04/14/20 20:49 Dose: 40 mg Documented by: Calcitriol (Rocaltrol) 0.25 mcg PO DAILY [facility] Last Admin: 04/14/20 09:15 Dose: 0.25 mcg Documented by: Docusate Sodium (Colace) 200 mg PO BID PRN PRN PRN Reason: Constipation Escitalopram Oxalate (Lexapro) 10 mg PO DAILY [facility] Last Admin: 04/14/20 09:15 Dose: 10 mg Documented by: Heparin Sodium (Porcine) (Heparin Na) 5,000 unit SC Q8 [facility] Last Admin: 04/15/20 06:11 Dose: 5,000 unit Documented by: Insulin Glargine (Lantus (Bkc)) 20 units SC DAILY [facility] Last Admin: 04/14/20 09:41 Dose: 20 u Documented by: Ondansetron HCl (Zofran) 4 mg IV Q8H PRN PRN PRN Reason: Nausea Pantoprazole Sodium (Protonix) 40 mg PO DAILY [facility] Last Admin: 04/14/20 09:15 Dose: 40 mg Documented by: Sodium Chloride () 10 - 40 ml IV UD PRN PRN Reason: SALINE FLUSH Last Admin: 04/13/20 11:39 Dose: 10 ml Documented by: Medical Necessity - Tobacco Use Smoking Status: Never smoker Tobacco Use: Non-smoker Assessment/Plan All Active Problems (Last Reviewed 04/12/20 @ 15:[address] Dariana Gusman, DO) Metabolic encephalopathy (Acute) Acute hypercapnic respiratory failure (Acute) ESRD (end stage renal disease) on dialysis (Acute) Lethargy (Acute) JORGE (acute kidney injury) (Resolved) C. difficile diarrhea (Resolved) 1. ESRD. On home HD. Has been getting HD on MWF while in the hospital. OK to discharge today. Pt can resume her home HD schedule which is //Fri/Fri. Follow up as outpt with Dr. Freeman at [facility] later this month. 2. Acute hypoxic respiratory failure. Multifactorial. Better. Keep O>I with [facility]. 3. SHPT. Continue calcitriol. Will follow up Ca/P and PTH as outpt. 4. Encephalopathy. Resolved.
--- NOTE | 2020-04-15 08:51 | DCINST_ITS ---
- Discharge Diagnoses Current Active Problems: Current Active and Chronic Problems (Last Reviewed 04/12/20 @ 15:[address] Dariana Gusman DO) Metabolic encephalopathy (Acute) Acute hypercapnic respiratory failure (Acute) Chronic hypoxemic respiratory failure (Chronic) ESRD (end stage renal disease) on dialysis (Acute) You will use the following diet at home:: Calorie/Carbohydrate Controlled (specify 1200, 1400, etc), Cardiac Your food should be the consistency of: Regular Your liquids should be the consistency of: Regular/Thin Discharge Activity: Return to Normal Activity, No Restrictions Call your doctor if you observe: Fever of 101 or Higher, Shortness of breath, Chest pain Allergies/Adverse Reactions: Allergies No Known Allergies Allergy (Verified 04/12/20 10:13) Medications to take at Discharge pantoprazole 40 mg tablet,delayed release 40 mg PO DAILY 04/06/18 calcitriol 0.25 mcg capsule 0.25 mcg PO DAILY 09/09/18 Acetaminophen [Tylenol Tablet] 650 mg PO Q6H PRN PRN tab 11/15/18 aspirin 325 mg tablet 325 mg PO BID tab 02/23/19 escitalopram oxalate 10 mg tablet 10 mg PO DAILY 02/23/19 Atorvastatin Calcium [Lipitor] 40 mg PO DAILY 06/21/19 insulin glargine 100 unit/mL subcutaneous solution 20 unit SC DAILY ml 01/31/20 potassium chloride 20 mEq tablet,extended release(part/cryst) 20 meq PO BID tab 01/31/20 Nystatin Powder [Mycostatin Powder] 1 applic TOPICAL BID 04/12/20 amiodarone 200 mg tablet 100 mg PO .mwf tab 04/12/20 Primary Care Physician: Zeenat Harp MD [Primary Care Provider] - Please follow up with your Primary Care Physician in: in 1-2 weeks Test Results: Test results from this visit will be discussed in further detail at your follow- up appointment, if applicable. Please Follow Up With: Rocael Valencia MD When: 2-4 weeks
[2020-04-15] MEDS: Escitalopram Oxalate 10 MG Tablet PO (09:24)
[2020-04-15] MEDS: Calcitriol 0.25 MCG Capsule PO (09:24)
[2020-04-15] MEDS: Pantoprazole Sodium 40 MG Tablet PO (09:24)
[2020-04-15 11:06] LABS: Bedside Glucose 183 mg/dL (70-110)
[2020-04-17 09:44] LABS: Pathologist Review Reviewed
[2020-04-17 12:56] LABS: Pathologist Review Reviewed
[2020-04-17 13:03] LABS: Pathologist Review Reviewed
--- NOTE | 2020-04-17 15:51 | CASEMGMT ---
ELI STARR Discharge Follow-up Phone Call: AMPARO: Gayathri Strata: 3 Call Date: 04/17/20 Discharge Date: 04/15/20 Time of Call: 1550 Duration: 1 Admitting Diagnosis: Acute hypercapnic respiratory failure ELI STARR attempted to complete follow-up phone call after recent hospitalization. No answer, mailbox is full and unable to leave message. Patient was setup with [facility] at discharge.
== END 2020-04-15 10:26 | disposition home or self-care (01) | DRG 189 ==
LOC: ED 11:19 → PCU 13:32
PROVIDERS: Internal Medicine; Admitting Provider Internal Medicine; Emergency Provider Emergency Medicine; PCP Family Medicine; Visit Provider Internal Medicine
DX: J96.22 Acute and chronic respiratory failure with hypercapnia (principal); G93.41 Metabolic encephalopathy; N18.6 End stage renal disease; I13.2 Hypertensive heart and chronic kidney disease with heart failure and with stage 5 chronic kidney disease, or end stage renal disease; I50.32 Chronic diastolic (congestive) heart failure; J90 Pleural effusion, not elsewhere classified; E87.2 Acidosis; D61.818 Other pancytopenia; I24.8 Other forms of acute ischemic heart disease; J96.21 Acute and chronic respiratory failure with hypoxia; E11.22 Type 2 diabetes mellitus with diabetic chronic kidney disease; E11.51 Type 2 diabetes mellitus with diabetic peripheral angiopathy without gangrene; D63.1 Anemia in chronic kidney disease; I48.0 Paroxysmal atrial fibrillation; I27.21 Secondary pulmonary arterial hypertension; E78.5 Hyperlipidemia, unspecified; M34.1 CR(E)ST syndrome; J44.9 Chronic obstructive pulmonary disease, unspecified; G47.33 Obstructive sleep apnea (adult) (pediatric); R00.1 Bradycardia, unspecified; F32.9 Major depressive disorder, single episode, unspecified; S61.201A Unspecified open wound of left index finger without damage to nail, initial encounter; E66.01 Morbid (severe) obesity due to excess calories; Z99.2 Dependence on renal dialysis; Z68.34 Body mass index [BMI] 34.0-34.9, adult; Z79.82 Long term (current) use of aspirin; Z79.4 Long term (current) use of insulin; Z79.899 Other long term (current) drug therapy; Z91.19 Patient's noncompliance with other medical treatment and regimen; Z86.73 Personal history of transient ischemic attack (TIA), and cerebral infarction without residual deficits
CPT/HCPCS: 36415; 36600; 70450; 71045; 76604; 80048; 80053; 82803; 82962; 83605; 83735; 83880; 84443; 84484; 85025; 85610; 85730; 87040; 90937; 93005; 93306; 94002; 94003; 94640; 97162; 97166; 99285; J7030; Q9957; A4216; G0257; J0696

== ENCOUNTER 2020-04-27 09:30 | Outpatient (RCR) | payer MEDICARE, SELFPAY ==
[2020-04-05 00:28] VITALS: BP 102/41; PULSE 51; RESP 18; TEMP 36.2; O2SAT 3
[2020-04-06 08:05] VITALS: BP 100/36; PULSE 54; RESP 16; TEMP 36.2; BMI 35.6
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
[2020-04-27 09:25] VITALS: BP 132/50; PULSE 73; RESP 18; TEMP 36.5; BMI 35.6
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
== END 2020-05-05 23:59 ==
LOC: WC 09:30
PROVIDERS: PCP Family Medicine; Referring Provider Internal Medicine; Visit Provider Internal Medicine
DX: L98.492 Non-pressure chronic ulcer of skin of other sites with fat layer exposed (principal); T23.322A Burn of third degree of single left finger (nail) except thumb, initial encounter; E11.22 Type 2 diabetes mellitus with diabetic chronic kidney disease; E11.51 Type 2 diabetes mellitus with diabetic peripheral angiopathy without gangrene; G47.33 Obstructive sleep apnea (adult) (pediatric); I50.9 Heart failure, unspecified; I27.20 Pulmonary hypertension, unspecified; Z99.2 Dependence on renal dialysis; J44.9 Chronic obstructive pulmonary disease, unspecified; E11.42 Type 2 diabetes mellitus with diabetic polyneuropathy; N18.6 End stage renal disease; X19.XXXA Contact with other heat and hot substances, initial encounter
CPT/HCPCS: 15275; 99212; Q4186; G0463

== ENCOUNTER 2020-06-01 08:30 | Outpatient (RCR) | payer MEDICARE, SELFPAY ==
[2020-05-02 07:44] VITALS: BMI 35.6
[2020-05-06 00:27] VITALS: BP 132/50; PULSE 73; RESP 18; TEMP 36.5; O2SAT 3
[2020-05-11 08:19] VITALS: BP 119/48; PULSE 65; RESP 22; TEMP 36.3; BMI 35.6
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
[2020-05-25 08:55] VITALS: BP 101/37; PULSE 69; RESP 18; TEMP 36.1; BMI 35.6
--- NOTE | 2020-05-25 10:04 | RAD_ITS ---
STUDY: X-RAY - LEFT HAND REASON FOR EXAM: Middle finger ulcer, cellulitis in palm of hand. TECHNIQUE: 3 view(s) of the hand. COMPARISON: Radiographs of the middle finger 12/28/2019. FINDINGS: There is osteopenia. Normal radiocarpal articulation. Normal distal radioulnar joint. Normal visualized carpal bones. Normal carpal articulations Normal carpometacarpal articulation of the thumb. Normal second through fifth carpometacarpal joints. Normal metacarpi. Normal metacarpophalangeal joint of the thumb. Normal interphalangeal joint of the thumb. Normal proximal and distal phalanges of the thumb. Normal metacarpophalangeal joints of the second through fifth fingers. There are marginal osteophytes and joint space narrowing of the fourth distal interphalangeal joint. There is loss of the ungual tuft of the third digit as on the prior study. There is deformity of the ungual tuft of the second digit. There is ulceration at the distal aspect of the third finger as on the prior study. There are surgical clips adjacent to the distal radius. RAD/Hand Min 3 Views IMPRESSION: Loss of the ungual tuft of the third digit as on the prior study with overlying ulcer. Deformity of the ungual tuft of the second digit. 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 Electronically Signed: Craig Hurtado MD at 11:29 EDT Tel , Service support ,
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
[2020-06-01 08:42] VITALS: BP 107/59; PULSE 121; RESP 18; TEMP 36.6; BMI 35.6
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
--- NOTE | 2020-06-01 09:20 | WC ---
Patient sent to ER for evaluation Left middle finger / hand for c/o increased pain, edema, redmess, drainage. Wound cultures +MRSA. Spoke to Jacqui charge nurse at [facility] ER. Report given and faxed current medication list, culture results, and xray results to ER per request. Patient taking her to ER immediatley
== END 2020-06-05 23:59 ==
LOC: WC 08:30
PROVIDERS: PCP Family Medicine; Referring Provider Internal Medicine; Visit Provider Internal Medicine
DX: L98.492 Non-pressure chronic ulcer of skin of other sites with fat layer exposed (principal); T23.322A Burn of third degree of single left finger (nail) except thumb, initial encounter; Z99.2 Dependence on renal dialysis; X19.XXXA Contact with other heat and hot substances, initial encounter; E11.22 Type 2 diabetes mellitus with diabetic chronic kidney disease; G47.33 Obstructive sleep apnea (adult) (pediatric); E11.51 Type 2 diabetes mellitus with diabetic peripheral angiopathy without gangrene; I27.20 Pulmonary hypertension, unspecified; I50.9 Heart failure, unspecified; N18.6 End stage renal disease; J44.9 Chronic obstructive pulmonary disease, unspecified; Z86.73 Personal history of transient ischemic attack (TIA), and cerebral infarction without residual deficits; E11.40 Type 2 diabetes mellitus with diabetic neuropathy, unspecified
CPT/HCPCS: 11042; 73130; 87070; 87075; 87077; 87186; 87205; 97597

== ENCOUNTER 2020-06-01 09:23 | Emergency (ER) | payer MEDICARE, SELFPAY ==
[2020-06-01 08:42] VITALS: BMI 35.6
[2020-06-01 09:23] VITALS: BP 107/51; PULSE 111; RESP 20; TEMP 36.3; O2SAT 94; BMI 34.5
[2020-06-01 10:13] VITALS: BP 107/51; PULSE 111; RESP 20; TEMP 36.3; O2SAT 94
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
[2020-06-01 10:30] LABS: Absolute Lymphocyte Count 0.31 X10^3/uL (0.83-4.51); Absolute Neutrophil Count 14.9 X10^3/uL (2.0-7.7); Basophil# 0.04 X10^3/uL; Basophil% 0.2 % (0-1); Eosinophil# 0.08 X10^3/uL; Eosinophils% 0.5 % (0-5); Hematocrit 37.2 % (37-47); Hemoglobin 10.7 g/dL (12.0-15.0); Lymphocyte # 0.31 X10^3/ul (4.0); Lymphocyte % 1.9 % (19-41); Mean Corp Hgb Conc 28.8 g/dL (32-36); Mean Corpuscular Hgb 29.6 pg (27.0-32.0); Monocyte# 0.73 X10^3/uL; Monocyte% 4.5 % (0-10); NRBC Flagged by Analyzer 0.1 % (0-5); Neutrophil # 14.89 X10^3/uL (2.7-7.7); Neutrophil % 91.6 % (47-70); POSITIVE DIFFERENTIAL YES; POSITIVE MORPHOLOGY YES; Platelet Count 138 K/mm3 (150-450); RBC Distribution Width CV 17.4 % (11.6-14.6); RBC Distribution Width SD 65.5 fl (35.1-43.9); Red Blood Count 3.61 M/mm3 (4.2-5.4); White Blood Count 16.3 K/mm3 (4.4-11.0)
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
[2020-06-01 10:33] LABS: Differential Indicated SCAN CRITERIA MET
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
[2020-06-01 10:38] LABS: International Normalized Ratio 1.3; Prothrombin Time (Protime)PT. 15.7 SECONDS (11.7-14.9)
[2020-06-01 10:45] LABS: Anion Gap 7 (5-15); BUN 34 mg/dL (7-18); BUN/Creat Ratio 5.7 RATIO (10-20); Calcium,Total 8.4 mg/dL (8.5-10.1); Chloride 103 mmol/L (98-107); Creatinine, Serum 5.99 mg/dL (0.55-1.02); EST Glomerular Filtration Rate 7 mL/min (>60); Est Glom Filt Rate - Afr Amer 9 mL/min (>60); Estimated Creatinine Clearance 7.02 ml/min; Glucose 133 mg/dL (74-106); Potassium 4.5 mmol/L (3.5-5.1); Sodium Level 137 mmol/L (136-145)
[2020-06-01 11:02] LABS: Lactic Acid 2.2 mmol/L (0.4-1.9)
[2020-06-01 11:07] LABS: Anisocytosis 1+
[2020-06-01 11:17] VITALS: BP 129/68; PULSE 124; RESP 16; TEMP 37.1; O2SAT 95
--- NOTE | 2020-06-01 11:20 | ED.RN ---
DR ISIDRO MADE AWARE OF SEPSIS ALERT. DENIES FLUIDS AT THIS TIME, DUE TO DIALYSIS PT. IV ATB ALREADY STARTED. CULTURES ALREADY OBTAINED BY WOUND CENTER.
[2020-06-01 11:24] VITALS: BP 129/68; PULSE 115; RESP 16; O2SAT 95
--- NOTE | 2020-06-01 11:38 | EKG12_ITS ---
Test Reason : PRE-OP Blood Pressure : / mmHG Vent. Rate : 107 BPM Atrial Rate : 108 BPM P-R Int : 000 ms QRS Dur : 102 ms QT Int : 340 ms P-R-T Axes : 000 176 031 degrees QTc Int : 453 ms Atrial fibrillation with rapid ventricular response Right axis deviation Low voltage QRS Abnormal ECG Confirmed by HILARIO LOONEY, OUMOU ([id number]), associate editor KELLIE CHEN ([id number]) on 06/02/2020 11:32:14 A M Referred By: SANNA Confirmed By:MICHAEL RICH MD
[2020-06-01] MEDS: Vancomycin IV 1,000 MG/200 ML BAG 200 MG IV (11:52)
[2020-06-01 12:03] VITALS: BP 108/57; PULSE 106; RESP 18; TEMP 36.6; O2SAT 96
--- NOTE | 2020-06-01 12:04 | ED.RN ---
ELEVATED CREATININE, PT IS ON DIALYSIS
[2020-06-01 13:00] VITALS: BP 113/97; PULSE 107; RESP 16; TEMP 36.7; O2SAT 96
[2020-06-01 14:27] LABS: Reflex Lactate? Y
== END 2020-06-01 14:13 | disposition short-term general hospital (02) ==
LOC: ED 10:38
PROVIDERS: Emergency Provider Emergency Medicine; PCP Family Medicine
DX: L08.9 Local infection of the skin and subcutaneous tissue, unspecified (principal); I13.2 Hypertensive heart and chronic kidney disease with heart failure and with stage 5 chronic kidney disease, or end stage renal disease; N18.6 End stage renal disease; E11.22 Type 2 diabetes mellitus with diabetic chronic kidney disease; Z79.4 Long term (current) use of insulin; Z79.82 Long term (current) use of aspirin; Z79.899 Other long term (current) drug therapy; L98.492 Non-pressure chronic ulcer of skin of other sites with fat layer exposed; T23.322A Burn of third degree of single left finger (nail) except thumb, initial encounter; Z99.2 Dependence on renal dialysis; X19.XXXA Contact with other heat and hot substances, initial encounter; G47.33 Obstructive sleep apnea (adult) (pediatric); E11.51 Type 2 diabetes mellitus with diabetic peripheral angiopathy without gangrene; I27.20 Pulmonary hypertension, unspecified; I50.9 Heart failure, unspecified; J44.9 Chronic obstructive pulmonary disease, unspecified; E11.40 Type 2 diabetes mellitus with diabetic neuropathy, unspecified; Z86.73 Personal history of transient ischemic attack (TIA), and cerebral infarction without residual deficits
CPT/HCPCS: 11042; 71045; 73130; 80048; 83605; 85025; 85610; 93005; 96365; 96367; 99283; J7050; A4216